=== PATIENT | female | born 1995 | race Caucasian/White ===

== ENCOUNTER 2017-08-31 20:21 | Emergency (ER) | payer OTHER ==
[2017-08-31] MEDS ORDERED: NA CHLORIDE 0.9% 1,000 ML ONE (21:12)
--- NOTE | 2017-08-31 21:29 | RAD REPORT ---
EXAM DESCRIPTION: US - Transvaginal OB - 08/31/2017 9:21 pm CLINICAL HISTORY: lower abd pain COMPARISON: None FINDINGS: A normal-shaped single gestational sac is seen within the uterus. Within the sac is a sing le pole with crown-rump length measuring 3 mm corresponding to 6 weeks 0 days gestational age. VICTORIA 04/25/2018 Cardiac activity is normal measuring 99 BPM. Both ovaries are normal in size, shape and echotexture with normal Doppler blood flow. Maternal adnexa showed no worrisome finding. IMPRESSION: Single live early intrauterine gestation as detailed above.
[2017-08-31 22:14] LABS: Urine Mucus 2+ /HPF (NONE SEEN)
[2017-08-31 22:15] LABS: Urine Bacteria <20 /HPF (<20); Urine Culture Reflex Order NOT NEEDED; Urine RBC <5 /HPF (NONE SEEN)
[2017-08-31 22:18] LABS: Urine Blood NEGATIVE (NEG); Urine Glucose NEGATIVE (NEG); Urine Protein NEGATIVE (NEG); Urine pH 6.5 (5.0-7.0)
--- NOTE | 2017-08-31 22:53 | ER ---
Nurse's Notes [facility] Name: Mile Wang Age: 22 yrs Sex: Female : 1995 Arrival Date: 08/31/2017 Time: 20:28 Bed 23 Private MD: Eddie Rosas T Diagnosis: Dehydration;Intrauterine Presentation: 08/31 20:40 Presenting complaint: Patient states: 7 weeks . pt c/o nausea, decreased ak1 appetite X3 days. pt c/o lower back pain X3 days. pt c/o "racing heart" X3 days. Transition of care: patient was not received from another setting of care. Onset of symptoms is unknown. Risk Assessment: Do you want to hurt yourself or someone else? Patient reports no desire to harm self or others. Initial Sepsis Screen: Does the patient meet any 2 criteria? No. Patient's initial sepsis screen is negative. Does the patient have a suspected source of infection? No. Patient's initial sepsis screen is negative. Care prior to arrival: None. 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 - Social history:: Smoking status: Patient/guardian denies using tobacco. - Ebola Screening: : No symptoms or risks identified at this time. - Family history:: not pertinent. - Hospitalizations: : No recent hospitalization is reported. Screenin:52 Abuse screen: Denies threats or abuse. Denies injuries from another. Nutritional aj screening: No deficits noted. Tuberculosis screening: No symptoms or risk factors identified. Fall Risk None identified. Assessment: 21:52 General: Appears in no apparent distress. comfortable, Behavior is calm, cooperative, aj appropriate for age. Pain: Denies pain. Neuro: Level of Consciousness is awake, alert, obeys commands, Oriented to person, place, time, situation, Appropriate for age. Respiratory: Airway is patent Respiratory effort is even, unlabored, Respiratory pattern is regular, symmetrical. GI: Reports nausea. Derm: Skin is intact, is healthy with good turgor, Skin is pink, warm \\T\\ dry. normal. 22:01 Reassessment: Patient appears in no apparent distress at this time. No changes from ed1 previously documented assessment. Patient and/or family updated on plan of care and expected duration. Pain level reassessed. Patient is alert, oriented x 3, equal unlabored respirations, skin warm/dry/pink. Vital Signs: 20:42 BP 122 / 74; Pulse 86; Resp 18; Temp 98.7(O); Pulse Ox 97% on R/A; Weight 74.84 kg (R); ak1 Height 5 ft. 4 in. (162.56 cm) (R); Pain 6/10; 22:01 BP 113 / 76; Pulse 83; Resp 16; Pulse Ox 100% on R/A; Pain 6/10; ed1 20:42 Body Mass Index 28.32 (74.84 kg, 162.56 cm) ak1 ED Course: 20:28 Patient arrived in ED. al2 20:29 Eddie Rosas MD is Private Physician. al2 20:41 Triage completed. ak1 20:42 Arm band placed on Patient placed in an exam room, on a stretcher, Patient notified of ak1 wait time. 20:48 Mesfin Brenner MD is Attending Physician. rn 21:08 Candy Polanco, RN is Primary Nurse. aj 21:21 Transvaginal Ob In Process Unspecified. EDMS 21:51 Inserted saline lock: 20 gauge in right antecubital area, using aseptic technique. aj Blood collected. 21:52 Patient has correct armband on for positive identification. aj 21:52 No provider procedures requiring assistance completed. aj 21:53 Primary Nurse role handed off by Candy Polanco, RN ed1 21:53 Sophie Miller LVN is Primary Nurse. ed1 22:58 IV discontinued, intact, bleeding controlled, No redness/swelling at site. Pressure ed1 dressing applied. Administered Medications: 21:30 Drug: NS 0.9% 1000 ml Route: IV; Rate: 1000 ml; Site: right antecubital; aj 22:59 Follow up: IV Status: Completed infusion; IV Intake: 1000ml ed1 Intake: 22:59 IV: 1000ml; Total: 1000ml. ed1 Outcome: 22:52 Discharge ordered by . rn 22:58 Discharged to home ambulatory. ed1 22:58 Condition: good 22:58 Discharge instructions given to patient, Instructed on discharge instructions, follow up and referral plans. Demonstrated understanding of instructions, follow-up care. 22:59 Patient left the ED. ed1 Signatures: Dispatcher [employer] EDMS Candy Polanco RN RN Mesfin Fraire MD MD rn Riggs, Erika, LISA MEDICAL RECORDS COORDINATOR ed1 Radha Cosby RN RN ak1 Salena Hodge2
--- NOTE | 2017-08-31 22:53 | EDPHYS ---
Physician Documentation [facility] Name: Mile Wang Age: 22 yrs Sex: Female : 1995 Arrival Date: 08/31/2017 Time: 20:28 Bed 23 Private MD: Eddie Rosas T ED Physician Mesfin Brenner HPI: 08/31 20:58 This 22 yrs old Female presents to ER via Ambulatory with complaints of 7weks rn preg, not eating, no sleep. 20:58 The patient presents to the emergency department with abdominal pain, of the suprapubic rn area, that started 3 day(s) ago, nausea and vomiting. The estimated gestational age is 7 weeks. course: care: private OB physician, Ultrasound: the patient has not had an ultrasound. Associated signs and symptoms: Pertinent positives: abdominal pain, nausea, vomiting, Pertinent negatives: vaginal bleeding, vaginal discharge. The patient has not experienced similar symptoms in the past. The patient has not recently seen a physician. Reports confirmed , + intermittent abd pain when eating and randomly, worse over last 3 days, no u/s, no vaginal discharge/bleeding, no trauma, no fever, reports nausea worse with this compared to last, throwing up frequently, feels heart racing. No current abd pain.. 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 - Social history:: Smoking status: Patient/guardian denies using tobacco. - Ebola Screening: : No symptoms or risks identified at this time. - Family history:: not pertinent. - Hospitalizations: : No recent hospitalization is reported. ROS: 20:58 Constitutional: Negative for fever, chills, and weight loss, Eyes: Negative for injury, rn pain, redness, and discharge, Neck: Negative for injury, pain, and swelling, Cardiovascular: Negative for chest pain, and edema, Respiratory: Negative for shortness of breath, cough, wheezing, and pleuritic chest pain, Abdomen/GI: Negative for diarrhea, and constipation, MS/Extremity: Negative for injury and deformity, Skin: Negative for injury, rash, and discoloration, Neuro: Negative for headache, numbness, tingling, and seizure. Exam: 21:38 Constitutional: This is a well developed, well nourished patient who is awake, alert, rn and in no acute distress. Head/Face: Normocephalic, atraumatic. Cardiovascular: Regular rate and rhythm with a normal S1 and S2. No gallops, murmurs, or rubs. Normal PMI, no JVD. No pulse deficits. Respiratory: Lungs have equal breath sounds bilaterally, clear to auscultation and percussion. No rales, rhonchi or wheezes noted. No increased work of breathing, no retractions or nasal flaring. Abdomen/GI: Soft, non-tender, with normal bowel sounds. No distension or tympany. No guarding or rebound. No evidence of tenderness throughout. Skin: Warm, dry, no evidence of cellulitis. MS/ Extremity: Pulses equal, no cyanosis. Neurovascular intact. Full, normal range of motion. Equal circumference. Neuro: Awake and alert, GCS 15, oriented to person, place, time, and situation. Cranial nerves II-XII grossly intact. Motor strength 5/5 in all extremities. Sensory grossly intact. Vital Signs: 20:42 BP 122 / 74; Pulse 86; Resp 18; Temp 98.7(O); Pulse Ox 97% on R/A; Weight 74.84 kg (R); ak1 Height 5 ft. 4 in. (162.56 cm) (R); Pain 6/10; 22:01 BP 113 / 76; Pulse 83; Resp 16; Pulse Ox 100% on R/A; Pain 6/10; ed1 20:42 Body Mass Index 28.32 (74.84 kg, 162.56 cm) ak1 MDM: 20:48 Patient medically screened. rn 22:50 Differential diagnosis: ectopic , dehydration, UTI. Data reviewed: vital rn signs, nurses notes, lab test result(s), radiologic studies, ultrasound, and as a result, I will discharge patient. Counseling: I had a detailed discussion with the patient and/or guardian regarding: the historical points, exam findings, and any diagnostic results supporting the discharge/admit diagnosis, lab results, radiology results, the need for outpatient follow up, to return to the emergency department if symptoms worsen or persist or if there are any questions or concerns that arise at home. Response to treatment: the patient's symptoms have markedly improved after treatment, and as a result, I will discharge patient. Special discussion: I discussed with the patient/guardian in detail that at this point there is no indication for admission to the hospital. It is understood, however, that if the symptoms persist or worsen the patient needs to return immediately for re-evaluation. Based on the history and exam findings, there is no indication for further emergent testing or inpatient evaluation. I discussed with the patient/guardian the need to see the OB Gyne specialist for further evaluation of the symptoms. ED course: U/S shows IUP approx 6 weeks 0 days with FHTs, UA neg except for ketones, + dehydration, improved with fluids, will dc home and defer nausea medication to her OB, patient self-medicating at home with zofran and phenergan advised against this until talks with her OB.. 08/31 20:56 Order name: Quantitative Hcg 08/31 20:56 Order name: Abo/rh Typing; Complete Time: 22:27 08/31 20:56 Order name: Basic Metabolic Panel 08/31 20:56 Order name: Urine Microscopic Only; Complete Time: 22:27 08/31 21:36 Order name: Urine Dipstick--Ancillary (enter results); Complete Time: 22:27 08/31 21:36 Order name: Urine --Ancillary (enter results); Complete Time: 22:27 08/31 20:56 Order name: IV Saline Lock; Complete Time: 21:30 08/31 20:56 Order name: Labs collected and sent; Complete Time: 21:30 08/31 20:56 Order name: NPO; Complete Time: 21:30 08/31 20:56 Order name: Urine Dipstick-Ancillary (obtain specimen); Complete Time: 21:48 08/31 20:56 Order name: US Transvaginal Ob; Complete Time: 21:36 08/31 22:05 Order name: Labs - recollect needed; Complete Time: 22:17 eb Administered Medications: 21:30 Drug: NS 0.9% 1000 ml Route: IV; Rate: 1000 ml; Site: right antecubital; aj 22:59 Follow up: IV Status: Completed infusion; IV Intake: 1000ml ed1 Disposition: 08/31/17 22:52 Discharged to Home. Impression: Dehydration, Intrauterine . - Condition is Stable. - Discharge Instructions: Abdominal Pain During , Dehydration, Adult, Back Pain in , First Trimester of . - Medication Reconciliation Form, Thank You Letter, Antibiotic Education, Prescription Opioid Use form. - Follow up: Private Physician; When: 2 - 3 days; Reason: Recheck today's complaints, Re-evaluation by your physician. - Problem is new. - Symptoms have improved. Signatures: Dispatcher [employer] EDMS Candy Polanco, RN RN aj Mesfin Brenner MD MD rn Riggs, Erika, LVN [employer] COURT REPORTER ed1 Radha Cosby RN RN ak1 Elsy Simmons Corrections: (The following items were deleted from the chart) 21:38 20:58 Constitutional: Negative for fever, chills, and weight loss, rn lo 22:59 22:52 08/31/2017 22:52 Discharged to Home. Impression: Dehydration; Intrauterine ed1 . Condition is Stable. Forms are Medication Reconciliation Form, Thank You Letter, Antibiotic Education, Prescription Opioid Use. Follow up: Private Physician; When: 2 - 3 days; Reason: Recheck today's complaints, Re-evaluation by your physician. Problem is new. Symptoms have improved. rn
[2017-08-31 23:10] VITALS: TEMP 98.7
[2017-08-31 23:12] VITALS: BP 113/76; O2SAT 100
[2017-08-31 23:24] LABS: BUN Blood Urea Nitrogen 6 mg/dL (7-18); Bicarbonate 26 mmol/L (21-32); Glucose Level 80 mg/dL (74-106); Potassium 3.6 mmol/L (3.5-5.1); Sodium Level 138 mmol/L (136-145)
[2017-08-31 23:25] LABS: HCG, Quantitative 14849 mIU/mL (1-3)
== END 2017-08-31 22:59 | disposition home or self-care (01) ==
LOC: ER 20:21
DX: E86.0 Dehydration (principal); Z33.1 Pregnant state, incidental
CPT/HCPCS: 36415; 76817; 80048; 81003; 81015; 81025; 84702; 86900; 86901; 96360; 99284; J7030

== ENCOUNTER 2017-09-17 15:01 | Emergency (ER) | payer OTHER ==
[2017-09-17 15:53] LABS: Absolute Monocytes 0.5 K/uL (0.1-1.3); Absolute Neutrophil 6.2 K/uL (1.8-8.0); Basophils % 0.2 % (0-1.3); Eosinophils % 0.8 % (0-4.4); Lymphocytes % 22.3 % (15.3-44.8); MCV 87.9 fL (80-100); MPV 8.3 fL (7.6-11.3); RBC Red Blood Cell Count 4.32 M/uL (3.86-4.86)
[2017-09-17 16:03] LABS: BUN Blood Urea Nitrogen 6 mg/dL (7-18); Bicarbonate 25 mmol/L (21-32); Glucose Level 133 mg/dL (74-106); Potassium 3.3 mmol/L (3.5-5.1); Sodium Level 141 mmol/L (136-145)
[2017-09-17] MEDS ORDERED: POTASSIUM CL SA 10 MEQ TAB PO ONE (16:11)
[2017-09-17 16:56] LABS: Urine Blood NEGATIVE (NEG); Urine Glucose NEGATIVE (NEG); Urine Protein NEGATIVE (NEG); Urine Specific Gravity 1.025 (1.005-1.030); Urine pH 7.5 (5.0-7.0)
[2017-09-17 17:00] LABS: Barbiturates NEGATIVE (NEGATIVE); Benzodiazepines NEGATIVE (NEGATIVE); Cocaine NEGATIVE (NEGATIVE); METHAMPHETAM NEGATIVE (NEGATIVE); Methadone NEGATIVE (NEGATIVE); Opiates NEGATIVE (NEGATIVE); Phencyclidine NEGATIVE (NEGATIVE); THC Cannibis POSITIVE (NEGATIVE)
[2017-09-17 18:54] LABS: Urine Bacteria 20-50 /HPF (<20); Urine Culture Reflex Order REFLEXED; Urine Mucus 1+ /HPF (NONE SEEN); Urine RBC <5 /HPF (NONE SEEN)
--- NOTE | 2017-09-17 19:08 | EDPHYS ---
Physician Documentation [facility] Name: Mile Wang Age: 22 yrs Sex: Female : 1995 Arrival Date: 09/17/2017 Time: 15:06 Bed 24 Private MD: ED Physician Ton Bond HPI: 09/17 15:24 This 22 yrs old Female presents to ER via Unassigned with complaints of pm1 Seizure. 16:00 The patient presents after having a single isolated seizure, that lasted 1 minute(s), pm1 the episode(s) was witnessed, by co-worker(s). Character of seizure(s): Motor activity: generalized, Incontinence: none, Apnea: the patient did not experience apnea, Circulation: the patient did not experience evidence of pulse disturbance. Seizure onset: just prior to arrival. Context: the seizure(s) was witnessed, by co-worker(s), occurred at work, occurred while the patient was working, Contributing factors: Has not taken her Keppra for the past two months due to belief that it does not help. Seizure Hx: Last seizure: The patient's last seizure was approximately 2 day(s) ago, Seizure medications: Keppra. Associated injury: The patient did not suffer any apparent associated injury. EMS care: none. Current symptoms: Currently, the patient is not experiencing any symptoms, the patient feels back to baseline. The patient has experienced similar episodes in the past, multiple times. The patient has not recently seen a physician, has an appointment scheduled, with neurologist next week. 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 - Social history:: Smoking status: Patient/guardian denies using tobacco, never smoked. - Ebola Screening: : No symptoms or risks identified at this time. ROS: 16:00 Constitutional: Negative for fever, chills, and weight loss, Eyes: Negative for injury, pm1 pain, redness, and discharge, ENT: Negative for injury, pain, and discharge, Neck: Negative for injury, pain, and swelling, Cardiovascular: Negative for chest pain, palpitations, and edema, Respiratory: Negative for shortness of breath, cough, wheezing, and pleuritic chest pain, Abdomen/GI: Negative for abdominal pain, nausea, vomiting, diarrhea, and constipation, Back: Negative for injury and pain, : Negative for injury, bleeding, discharge, and swelling, MS/Extremity: Negative for injury and deformity, Skin: Negative for injury, rash, and discoloration. 16:00 Neuro: Positive for seizure activity, Negative for weakness. Exam: 16:00 Constitutional: This is a well developed, well nourished patient who is awake, alert, pm1 and in no acute distress. Head/Face: Normocephalic, atraumatic. Eyes: Pupils equal round and reactive to light, extra-ocular motions intact. Lids and lashes normal. Conjunctiva and sclera are non-icteric and not injected. Cornea within normal limits. Periorbital areas with no swelling, redness, or edema. ENT: Nares patent. No nasal discharge, no septal abnormalities noted. Tympanic membranes are normal and external auditory canals are clear. Oropharynx with no redness, swelling, or masses, exudates, or evidence of obstruction, uvula midline. Mucous membranes moist. Neck: Trachea midline, no thyromegaly or masses palpated, and no cervical lymphadenopathy. Supple, full range of motion without nuchal rigidity, or vertebral point tenderness. No Meningismus. Chest/axilla: Normal chest wall appearance and motion. Nontender with no deformity. No lesions are appreciated. 16:00 Cardiovascular: Regular rate and rhythm with a normal S1 and S2. No gallops, murmurs, or rubs. Normal PMI, no JVD. No pulse deficits. Respiratory: Lungs have equal breath sounds bilaterally, clear to auscultation and percussion. No rales, rhonchi or wheezes noted. No increased work of breathing, no retractions or nasal flaring. Abdomen/GI: Soft, non-tender, with normal bowel sounds. No distension or tympany. No guarding or rebound. No evidence of tenderness throughout. Back: No spinal tenderness. No costovertebral tenderness. Full range of motion. Skin: Warm, dry with normal turgor. Normal color with no rashes, no lesions, and no evidence of cellulitis. MS/ Extremity: Pulses equal, no cyanosis. Neurovascular intact. Full, normal range of motion. 16:00 Neuro: Orientation: is normal, Mentation: is normal, Cranial nerves: CN II- XII are normal as tested, Cerebellar function: normal finger to nose testing, Motor: is normal, moves all fours, Sensation: is normal, no obvious gross deficits, seizure activity, is not displayed by the patient. Vital Signs: 15:26 BP 116 / 69; Pulse 89; Resp 18; Pulse Ox 99% on R/A; tl3 17:10 BP 114 / 52; Pulse 68; Resp 18; Pulse Ox 99% on R/A; Pain 0/10; mg2 18:26 BP 108 / 48; Pulse 67; Resp 18; Pulse Ox 100% on R/A; tl3 19:29 BP 110 / 52; Pulse 72; Resp 18; Pulse Ox 100% on R/A; tl3 MDM: 15:12 Patient medically screened. pm1 17:16 Data reviewed: vital signs. Data interpreted: Pulse oximetry: on room air is 99 %. pm1 Interpretation: normal. Counseling: I had a detailed discussion with the patient and/or guardian regarding: the historical points, exam findings, and any diagnostic results supporting the discharge/admit diagnosis. 19:20 ED course: Patient with IUP per U/S on 09/02/2017 in this ER. Patient with pm1 appointment to follow up with neurologist next week. patient stopped keppra and does not want to take it. Will discharge patient to follow up with neurologist as scheduled. Patient without any seizures during ER stay. 09/17 15:23 Order name: Basic Metabolic Panel; Complete Time: 16:05 pm1 09/17 15:23 Order name: CBC with Diff; Complete Time: 16:17 pm1 09/17 15:23 Order name: Urine Microscopic Only; Complete Time: 19:04 pm1 09/17 15:39 Order name: UDS; Complete Time: 17:01 pm09/17 16:51 Order name: Urine Dipstick--Ancillary (enter results); Complete Time: 17:01 ag 09/17 16:51 Order name: Urine --Ancillary (enter results); Complete Time: 17:01 ag 09/17 15:23 Order name: IV Saline Lock; Complete Time: 15:29 pm1 09/17 15:23 Order name: Labs collected and sent; Complete Time: 15:29 pm1 09/17 15:23 Order name: NPO; Complete Time: 15:29 pm1 09/17 15:23 Order name: Urine Dipstick-Ancillary (obtain specimen); Complete Time: 17:12 pm1 09/17 16:51 Order name: Urine Test (obtain specimen); Complete Time: 17:12 ag 09/17 18:56 Order name: Urine Culture EDMS Administered Medications: 16:17 Drug: Potassium Chloride 40 mEq Route: PO; mg2 18:25 Follow up: Response: No adverse reaction tl3 19:18 Drug: Rocephin 1 grams Route: IV; Rate: calculated rate; Site: left antecubital; tl3 Delivery: Primary tubing; 19:18 Follow up: IV Status: Completed infusion; IV Intake: 20ml tl3 Disposition: 09/18 14:15 Co-signature as Attending Physician, Ton Bond MD I agree with the assessment and kdr plan of care. Disposition: 09/17/17 19:07 Discharged to Home. Impression: Epilepsy and recurrent seizures, Urinary tract infection, site not specified, Cannabis abuse. - Condition is Stable. - Discharge Instructions: Marijuana Abuse-Brief, Seizure, Adult, and Urinary Tract Infection. - Prescriptions for Macrobid 100 mg Oral Capsule - take 1 capsule by ORAL route every 12 hours for 10 days; 20 capsule. - Medication Reconciliation Form, Thank You Letter, Antibiotic Education form. - Follow up: Emergency Department; When: As needed; Reason: Worsening of condition. Follow up: Private Physician; When: 2 - 3 days; Reason: Recheck today's complaints, Continuance of care, Re-evaluation by your physician. - Problem is new. - Symptoms have improved. Signatures: Dispatcher [employer] EDMS Ton Bond MD MD kdr Gallardo, Ana ag Marinas, Patrick, NP INSTRUMENT MAKER pm1 Yoly Bojorquez RN RN tl3 Mesfin Paiz RN RN mg2 Corrections: (The following items were deleted from the chart) 09/17 19:31 19:07 09/17/2017 19:07 Discharged to Home. Impression: Epilepsy and recurrent mg2 seizuresUrinary tract infection, site not specified; Cannabis abuse. Condition is Stable. Forms are Medication Reconciliation Form, Thank You Letter, Antibiotic Education, Prescription Opioid Use. Follow up: Emergency Department; When: As needed; Reason: Worsening of condition. Follow up: Private Physician; When: 2 - 3 days; Reason: Recheck today's complaints, Continuance of care, Re-evaluation by your physician. Problem is new. Symptoms have improved. pm1
--- NOTE | 2017-09-17 19:08 | ER ---
Nurse's Notes [facility] Name: Mile Wang Age: 22 yrs Sex: Female : 1995 Arrival Date: 09/17/2017 Time: 15:06 Bed 24 Private MD: Diagnosis: Urinary tract infection, site not specified;Epilepsy and recurrent seizures;Cannabis abuse Presentation: 09/17 15:05 Presenting complaint: EMS states: ems reports that pt had a seizure that lasted about tl3 one minute at work, followed by a postictal phase of 5 minutes, pt has a history of seizures, has stopped taking her Keppra about two months ago, is about 10 weeks . 15:05 Transition of care: patient was not received from another setting of care. Onset of tl3 symptoms was September 17, 2017 at 15:25. Risk Assessment: Do you want to hurt yourself or someone else? Patient reports no desire to harm self or others. Initial Sepsis Screen: Does the patient meet any 2 criteria? No. Patient's initial sepsis screen is negative. Does the patient have a suspected source of infection? No. Patient's initial sepsis screen is negative. Care prior to arrival: IV initiated. 20 GA, in the left antecubital area. 15:05 Method Of Arrival: EMS: [facility] tl3 15:05 Acuity: BAIRON 3 tl3 Triage Assessment: 15:26 General: Appears in no apparent distress. comfortable, well groomed, well developed, tl3 well nourished, Behavior is calm, cooperative, appropriate for age. Pain: Denies pain. EENT: No deficits noted. No signs and/or symptoms were reported regarding the EENT system. Neuro: Level of Consciousness is awake, alert, obeys commands, Oriented to person, place, time, situation, Appropriate for age. Cardiovascular: Heart tones S1 S2 present Patient's skin is warm and dry. Respiratory: Airway is patent Respiratory effort is even, unlabored, Respiratory pattern is regular, symmetrical, Breath sounds are clear bilaterally. GI: No signs and/or symptoms were reported involving the gastrointestinal system. Abdomen is round non-distended. : No signs and/or symptoms were reported regarding the genitourinary system. Derm: No signs and/or symptoms reported regarding the dermatologic system. Musculoskeletal: No signs and/or symptoms reported regarding the musculoskeletal system. 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 - Social history:: Smoking status: Patient/guardian denies using tobacco, never smoked. - Ebola Screening: : No symptoms or risks identified at this time. Screenin:07 Abuse screen: Denies threats or abuse. Denies injuries from another. Nutritional mg2 screening: No deficits noted. Tuberculosis screening: No symptoms or risk factors identified. Fall Risk Secondary diagnosis (15 points) seizures, IV access (20 points). Assessment: 15:26 Reassessment: No changes from previously documented assessment. Patient is alert, tl3 oriented x 3, equal unlabored respirations, skin warm/dry/pink. 17:00 Reassessment: Patient appears in no apparent distress at this time. No changes from tl3 previously documented assessment. Patient and/or family updated on plan of care and expected duration. Pain level reassessed. Patient is alert, oriented x 3, equal unlabored respirations, skin warm/dry/pink. 18:26 Reassessment: Patient appears in no apparent distress at this time. No changes from tl3 previously documented assessment. Patient and/or family updated on plan of care and expected duration. Pain level reassessed. Patient is alert, oriented x 3, equal unlabored respirations, skin warm/dry/pink. pt awaiting discharge, in no distress. 19:29 Reassessment: Patient appears in no apparent distress at this time. No changes from tl3 previously documented assessment. Patient and/or family updated on plan of care and expected duration. Pain level reassessed. Patient is alert, oriented x 3, equal unlabored respirations, skin warm/dry/pink. Vital Signs: 15:26 BP 116 / 69; Pulse 89; Resp 18; Pulse Ox 99% on R/A; tl3 17:10 BP 114 / 52; Pulse 68; Resp 18; Pulse Ox 99% on R/A; Pain 0/10; mg2 18:26 BP 108 / 48; Pulse 67; Resp 18; Pulse Ox 100% on R/A; tl3 19:29 BP 110 / 52; Pulse 72; Resp 18; Pulse Ox 100% on R/A; tl3 ED Course: 15:06 Patient arrived in ED. mg2 15:07 Maintain EMS IV. Dressing intact. Good blood return noted. Site clean \T\ dry. Gauge \T\ mg 2 site: 20 \T\ left AC. 15:07 Patient has correct armband on for positive identification. Placed in gown. Bed in low mg2 position. Side rails up X2. Door closed. Warm blanket given. 15:12 Ted Gu NP is PHCP. pm1 15:12 Ton Bond MD is Attending Physician. pm1 15:23 Yoly Bojorquez, JUAN M is Primary Nurse. tl3 15:26 Triage completed. tl3 15:26 No provider procedures requiring assistance completed. tl3 15:26 Arm band placed on right wrist. tl3 16:15 Urine collected: clean catch specimen, clear, reinaldo colored. jp3 19:29 IV discontinued, intact, bleeding controlled, No redness/swelling at site. Pressure tl3 dressing applied. 19:30 IV discontinued, intact, bleeding controlled, No redness/swelling at site. Pressure mg2 dressing applied. Administered Medications: 16:17 Drug: Potassium Chloride 40 mEq Route: PO; mg2 18:25 Follow up: Response: No adverse reaction tl3 19:18 Drug: Rocephin 1 grams Route: IV; Rate: calculated rate; Site: left antecubital; tl3 Delivery: Primary tubing; 19:18 Follow up: IV Status: Completed infusion; IV Intake: 20ml tl3 Intake: 19:18 IV: 20ml; Total: 20ml. tl3 Outcome: 19:07 Discharge ordered by . pm1 19:30 Discharged to home ambulatory, with friend. mg2 19:30 Condition: good 19:30 Discharge instructions given to patient, friend, Instructed on discharge instructions, follow up and referral plans. medication usage, Demonstrated understanding of instructions, follow-up care, medications, Prescriptions given X 1. 19:31 Patient left the ED. mg2 Signatures: Ted Gu NP [employer] pm1 Yoly Bojorquez, JUAN M RN tl3 Mesfin Paiz RN RN mg2 Maco Buitrago jp3 Corrections: (The following items were deleted from the chart) 17:12 17:10 Resp 18bpm; Pulse Ox 99% RA; Pain 0/10; mg2 mg2
[2017-09-17] MEDS ORDERED: CEFTRIAXONE/SWI 1gm 1 GM/10 ML SYR ONE (19:14)
[2017-09-17 19:37] VITALS: O2SAT 100
[2017-09-17 19:38] VITALS: BP 110/52
== END 2017-09-17 19:31 | disposition home or self-care (01) ==
LOC: ER 15:01
DX: O99.351 Diseases of the nervous system complicating pregnancy, first trimester (principal); G40.909 Epilepsy, unspecified, not intractable, without status epilepticus; Z3A.10 10 weeks gestation of pregnancy; O23.41 Unspecified infection of urinary tract in pregnancy, first trimester; F12.10 Cannabis abuse, uncomplicated
CPT/HCPCS: 36415; 80048; 80307; 81003; 81015; 81025; 85025; 87086; 87088; 96374; 99284; J0696

== ENCOUNTER 2017-10-23 18:45 | Emergency (ER) | payer OTHER ==
[2017-10-23 19:52] LABS: Urine Blood NEGATIVE (NEG); Urine Glucose NEGATIVE (NEG); Urine Protein NEGATIVE (NEG); Urine Specific Gravity >1.030 (1.005-1.030)
[2017-10-23] MEDS ORDERED: ONDANSETRON 4 MG (ODT) TAB ONE (20:27)
[2017-10-23] MEDS ORDERED: FAMOTIDINE 20 MG TAB ONE (20:27)
[2017-10-23] MEDS ORDERED: DIPHENHYDRAMINE 25 MG TAB/CAP ONE (20:27)
--- NOTE | 2017-10-23 20:59 | EDPHYS ---
Physician Documentation [facility] Name: Mile Wang Age: 22 yrs Sex: Female : 1995 Arrival Date: 10/23/2017 Time: 18:48 Bed 24 Private MD: Eddie Rosas T ED Physician Zen Villanueva HPI: 10/23 20:20 This 22 yrs old Female presents to ER via Ambulatory with complaints of 14 cp wks , Rash, Vomiting, Headache. 20:20 The patient's rash thought to be caused by Contact allergy. The rash is located on the anterior aspect of left upper chest and anterior aspect of right upper chest and face. The rash can be described as erythematous. Onset: The symptoms/episode began/occurred today. Associated signs and symptoms: Pertinent positives: burning sensation, , Pertinent negatives: difficulty breathing, fever, itching, swelling of lips, swelling of throat, swelling of tongue. 20:20 Treatment given at home: OTC lotion/cream. Patient reports having EEG done yesterday in which electrodes and white gel were applied to face and upper chest. Patient concerned after noticing rash today. Historical: - Allergies: 18:52 No Known Allergies; la1 - PMHx: 18:52 Anxiety; Bipolar disorder; Psychogenic Seizures; la1 - Immunization history:: Adult Immunizations up to date. - Social history:: Smoking status: unknown. - Ebola Screening: : No symptoms or risks identified at this time. ROS: 20:25 Constitutional: Negative for body aches, chills, fever, poor PO intake. cp 20:25 Eyes: Negative for injury, pain, redness, and discharge. cp 20:25 ENT: Negative for drainage from ear(s), ear pain, sore throat, difficulty swallowing, difficulty handling secretions. 20:25 Cardiovascular: Negative for chest pain, edema. 20:25 Respiratory: Negative for cough, shortness of breath, wheezing. 20:25 Abdomen/GI: Positive for nausea, Negative for vomiting, diarrhea, constipation. 20:25 : Negative for urinary symptoms. 20:25 Skin: Positive for rash, of the face and upper chest. 20:25 Neuro: Positive for headache. 20:25 All other systems are negative. Exam: 20:30 Constitutional: The patient appears in no acute distress, alert, awake, non-toxic, well cp developed, well nourished. 20:30 Head/face: Noted is rash, of the forehead, right cheek, left cheek, right orthodoxy and cp left orthodoxy. 20:30 Eyes: Periorbital structures: appear normal, Pupils: equal, round, and reactive to light and accomodation, Extraocular movements: intact throughout, Conjunctiva: normal, no exudate, no injection, Sclera: no appreciated abnormality, Lids and lashes: appear normal, bilaterally. 20:30 ENT: External ear(s): are unremarkable, Ear canal(s): are normal, clear, TM's: bulging, is not appreciated, bilaterally, erythema, is not appreciated, bilaterally, Nose: is normal, Mouth: Lips: moist, Oral mucosa: pink and intact, moist, Posterior pharynx: is normal, airway is patent, no erythema, no exudate, Voice: is normal. 20:30 Neck: ROM/movement: is normal, is supple, without pain, no range of motions limitations, no nuchal rigidity, Lymph nodes: no appreciated lymphadenopathy. 20:30 Chest/axilla: Inspection: rash, of the anterior aspect of right upper chest and anterior aspect of left upper chest Palpation: is normal, no crepitus, no tenderness. 20:30 Cardiovascular: Rate: normal, Rhythm: regular. 20:30 Respiratory: the patient does not display signs of respiratory distress, Respirations: normal, no use of accessory muscles, no retractions, no splinting, no tachypnea, labored breathing, is not present, Breath sounds: are clear throughout, no decreased breath sounds, no stridor, no wheezing. 20:30 Abdomen/GI: Inspection: abdomen appears normal, Palpation: abdomen is soft and non-tender, in all quadrants. 20:30 Back: CVA tenderness, is absent. 20:30 Neuro: Orientation: to person, place \T\ time. Mentation: lucid, able to follow commands, Cerebellar function: is grossly normal, Motor: is normal. Vital Signs: 18:52 BP 113 / 66; Pulse 105; Resp 19; Temp 98.5; Pulse Ox 100% on R/A; Weight 74.84 kg; la1 Height 5 ft. 4 in. (162.56 cm); 19:02 BP 119 / 67; Pulse 97; Resp 15; Pulse Ox 100% on R/A; aj 20:02 BP 115 / 70; Pulse 70; Resp 16; Pulse Ox 100% on R/A; aj 21:04 BP 116 / 71; Pulse 81; Resp 16; Pulse Ox 99% on R/A; aj 18:52 Body Mass Index 28.32 (74.84 kg, 162.56 cm) la1 MDM: 20:02 Patient medically screened. cp 20:30 Differential diagnosis: varicella, allergic reaction, contact dermatitis, anaphylaxis, cp cellulitis. 20:56 ED course: VSS. Patient reports symptoms improved after meds. cp 20:57 Data reviewed: vital signs, nurses notes, lab test result(s), and as a result, I will cp discharge patient. 20:57 Counseling: I had a detailed discussion with the patient and/or guardian regarding: the cp historical points, exam findings, and any diagnostic results supporting the discharge/admit diagnosis, lab results, to return to the emergency department if symptoms worsen or persist or if there are any questions or concerns that arise at home. Response to treatment: the patient's symptoms have markedly improved after treatment, and as a result, I will discharge patient. 10/23 19:12 Order name: Urine Dipstick--Ancillary (enter results); Complete Time: 20:00 [facility] 10/23 19:12 Order name: Urine --Ancillary (enter results); Complete Time: 20:00 [facility] 10/23 20:13 Order name: Urine Microscopic Only cp 10/23 20:13 Order name: PO challenge; Complete Time: 20:27 cp Administered Medications: 20:27 Drug: Zofran 4 mg Route: PO; aj 21:06 Follow up: Response: No adverse reaction; Nausea is decreased aj 20:27 Drug: Benadryl 50 mg Route: PO; aj 21:07 Follow up: Response: No adverse reaction aj 20:27 Drug: Pepcid 20 mg Route: PO; aj 21:06 Follow up: Response: No adverse reaction aj 21:06 Follow up: Response: No adverse reaction Disposition: 21:30 Chart complete. cp Disposition: 10/23/17 20:58 Discharged to Home. Impression: Allergic contact dermatitis - Face and upper chest. - Condition is Stable. - Discharge Instructions: Contact Dermatitis. - Medication Reconciliation Form, Thank You Letter, Antibiotic Education, Prescription Opioid Use form. - Follow up: Private Physician; When: 2 - 3 days; Reason: Recheck today's complaints. - Problem is new. - Symptoms have improved. Addendum: 10/26/2017 08:54 Co-signature as Attending Physician, Zen Villanueva MD I agree with the assessment and c poole plan of care. Signatures: Dispatcher [employer] EDCandy Ellison RN RN aj Anderson, Corey, MD MD cha Attema, Lee RN RN la1 Zen Pierre PA PA cp Corrections: (The following items were deleted from the chart) 10/23 21:07 20:58 10/23/2017 20:58 Discharged to Home. Impression: Allergic contact dermatitis - aj Face and upper chest. Condition is Stable. Forms are Medication Reconciliation Form, Thank You Letter, Antibiotic Education, Prescription Opioid Use. Follow up: Private Physician; When: 2 - 3 days; Reason: Recheck today's complaints. Problem is new. Symptoms have improved. cp
--- NOTE | 2017-10-23 20:59 | ER ---
Nurse's Notes [facility] Name: Mile Wang Age: 22 yrs Sex: Female : 1995 Arrival Date: 10/23/2017 Time: 18:48 Bed 24 Private MD: Eddie Rosas T Diagnosis: Allergic contact dermatitis-Face and upper chest Presentation: 10/23 18:51 Presenting complaint: Patient states: I am 14 weeks , just got released from [address] for prolonged EEG due to seizures. I was also put on macrobid. I have a rash on my face now, nausea, and a headace. Transition of care: patient was not received from another setting of care. Onset of symptoms was October 23, 2017. Risk Assessment: Do you want to hurt yourself or someone else? Patient reports no desire to harm self or others. Initial Sepsis Screen: Does the patient meet any 2 criteria? No. Patient's initial sepsis screen is negative. Does the patient have a suspected source of infection? No. Patient's initial sepsis screen is negative. Care prior to arrival: None. 18:51 Method Of Arrival: Ambulatory [facility] 18:51 Acuity: BAIRON 3 la Historical: - Allergies: 18:52 No Known Allergies; la1 - PMHx: 18:52 Anxiety; Bipolar disorder; Psychogenic Seizures; la1 - Immunization history:: Adult Immunizations up to date. - Social history:: Smoking status: unknown. - Ebola Screening: : No symptoms or risks identified at this time. Screenin:02 Abuse screen: Denies threats or abuse. Denies injuries from another. Nutritional aj screening: No deficits noted. Tuberculosis screening: No symptoms or risk factors identified. Fall Risk None identified. Assessment: 19:02 General: Appears in no apparent distress. comfortable, Behavior is calm, cooperative, aj appropriate for age. Pain: Complains of pain in face. Neuro: Level of Consciousness is awake, alert, obeys commands, Oriented to person, place, time, situation, Appropriate for age. Respiratory: Airway is patent Respiratory effort is even, unlabored, Respiratory pattern is regular, symmetrical. GI: Abdomen is non-distended, obese, Reports nausea, vomiting. Derm: Rash noted that is red, on face, anterior aspect of right upper chest and anterior aspect of left upper chest. 21:04 Reassessment: Patient appears in no apparent distress at this time. No changes from aj previously documented assessment. Patient and/or family updated on plan of care and expected duration. Pain level reassessed. Patient is alert, oriented x 3, equal unlabored respirations, skin warm/dry/pink. Patient denies pain at this time. Vital Signs: 18:52 BP 113 / 66; Pulse 105; Resp 19; Temp 98.5; Pulse Ox 100% on R/A; Weight 74.84 kg; la1 Height 5 ft. 4 in. (162.56 cm); 19:02 BP 119 / 67; Pulse 97; Resp 15; Pulse Ox 100% on R/A; aj 20:02 BP 115 / 70; Pulse 70; Resp 16; Pulse Ox 100% on R/A; aj 21:04 BP 116 / 71; Pulse 81; Resp 16; Pulse Ox 99% on R/A; aj 18:52 Body Mass Index 28.32 (74.84 kg, 162.56 cm) la1 ED Course: 18:48 Patient arrived in ED. mr 18:48 Eddie Rosas MD is Private Physician. mr 18:52 Triage completed. la1 18:53 Arm band placed on left wrist. la1 19:01 Candy Polanco, JUAN M is Primary Nurse. aj 19:02 Patient has correct armband on for positive identification. Bed in low position. Call aj light in reach. Side rails up X 1. Adult w/ patient. Pulse ox on. NIBP on. 20:02 Zen Pierre PA is PHCP. cp 20:02 Zen Villanuvea MD is Attending Physician. cp 21:04 No provider procedures requiring assistance completed. Patient did not have IV access aj during this emergency room visit. Administered Medications: 20:27 Drug: Zofran 4 mg Route: PO; aj 21:06 Follow up: Response: No adverse reaction; Nausea is decreased aj 20: Drug: Benadryl 50 mg Route: PO; aj 21:07 Follow up: Response: No adverse reaction aj 20: Drug: Pepcid 20 mg Route: PO; aj 21:06 Follow up: Response: No adverse reaction aj 21:06 Follow up: Response: No adverse reaction aj Outcome: 20:58 Discharge ordered by . cp 21:04 Discharged to home ambulatory. aj 21: Condition: good 21:04 Discharge instructions given to patient, Instructed on discharge instructions, follow up and referral plans. Demonstrated understanding of instructions, follow-up care. 21:07 Patient left the ED. tracee Signatures: Candy Polanco RN Liliana Skinner Lee RN RN la1 Zen Pierre PA PA cp
[2017-10-23 21:04] LABS: Calcium Oxalate Crystals- Ur MODERATE (NONE SEEN); Urine Bacteria <20 /HPF (<20); Urine Culture Reflex Order NOT NEEDED; Urine Mucus 1+ /HPF (NONE SEEN); Urine RBC <5 /HPF (NONE SEEN)
[2017-10-23 22:19] VITALS: TEMP 98.5
[2017-10-23 22:22] VITALS: BP 116/71; O2SAT 99
== END 2017-10-23 21:07 | disposition home or self-care (01) ==
LOC: ER 18:45
DX: L23.9 Allergic contact dermatitis, unspecified cause (principal); Z3A.14 14 weeks gestation of pregnancy
CPT/HCPCS: 81003; 81015; 81025; 99283

== ENCOUNTER 2017-11-10 22:19 | Emergency (ER) | payer OTHER ==
[2017-11-10] MEDS ORDERED: CLINDAMYCIN HCL 150 MG CAP ONE (22:57)
--- NOTE | 2017-11-10 23:13 | ER ---
Nurse's Notes [facility] Name: Mile aWng Age: 22 yrs Sex: Female : 1995 Arrival Date: 11/10/2017 Time: 22:23 Bed 20 Private MD: Diagnosis: Cellulitis of left lower limb;Cutaneous abscess of left lower limb Presentation: 11/10 22:41 Presenting complaint: Patient states: she has a boil on the inside of her left upper bb leg x 3 days which has been draining pus. Transition of care: patient was not received from another setting of care. Onset of symptoms was November 07, 2017. Risk Assessment: Do you want to hurt yourself or someone else? Patient reports no desire to harm self or others. Initial Sepsis Screen: Does the patient meet any 2 criteria? No. Patient's initial sepsis screen is negative. Does the patient have a suspected source of infection? No. Patient's initial sepsis screen is negative. Care prior to arrival: None. 22:41 Method Of Arrival: Ambulatory bb 22:41 Acuity: BAIRON 4 bb 22:44 Note pt is 17 weeks . 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 - Social history:: Smoking status: Patient/guardian denies using tobacco, Patient/guardian denies using alcohol, street drugs. - Ebola Screening: : No symptoms or risks identified at this time. - Family history:: not pertinent. - Hospitalizations: : No recent hospitalization is reported. Screenin:48 Abuse screen: Denies threats or abuse. Denies injuries from another. Nutritional lp1 screening: No deficits noted. Tuberculosis screening: No symptoms or risk factors identified. Fall Risk None identified. Assessment: 22:46 General: Appears in no apparent distress. Behavior is appropriate for age. Pain: lp1 Complains of pain in medial aspect of left thigh Pain currently is 7 out of 10 on a pain scale. Neuro: No deficits noted. Cardiovascular: No deficits noted. Respiratory: No deficits noted. GI: No deficits noted. : No deficits noted. EENT: No deficits noted. Derm: Abscess located on medial aspect of left thigh is dime sized. Musculoskeletal: No deficits noted. Vital Signs: 22:43 BP 110 / 63; Pulse 76; Resp 16 S; Temp 98.4(O); Pulse Ox 100% on R/A; Weight 74.39 kg bb (R); Height 5 ft. 4 in. (162.56 cm) (R); Pain 5/10; 22:43 Body Mass Index 28.15 (74.39 kg, 162.56 cm) bb ED Course: 22:23 Patient arrived in ED. es 22:42 Mesfin Brenner MD is Attending Physician. rn 22:42 Triage completed. bb 22:43 Arm band placed on Patient placed in an exam room, on a stretcher, on pulse oximetry. bb 22:46 Sallie Barkley, RN is Primary Nurse. lp1 22:48 Patient has correct armband on for positive identification. lp1 22:48 No provider procedures requiring assistance completed. Patient did not have IV access lp1 during this emergency room visit. Administered Medications: 22:58 Drug: Clindamycin 300 mg Route: PO; lp1 23:24 Follow up: Response: No adverse reaction lp1 Outcome: 23:12 Discharge ordered by . rn 23:24 Discharged to home ambulatory. lp1 23:24 Condition: good 23:24 Discharge instructions given to patient, Instructed on discharge instructions, follow up and referral plans. medication usage, Demonstrated understanding of instructions, follow-up care, medications, Prescriptions given X 1. 23:24 Patient left the ED. lp1 Signatures: Fannie Borrero Brenda, RN RN bb Mesfin Brenner MD MD rn Pena, Laura, RN RN lp1
--- NOTE | 2017-11-10 23:13 | EDPHYS ---
Physician Documentation [facility] Name: Mile Wang Age: 22 yrs Sex: Female : 1995 Arrival Date: 11/10/2017 Time: 22:23 Bed 20 Private MD: ED Physician Mesfin Brenner HPI: 11/10 23:08 This 22 yrs old Female presents to ER via Ambulatory with complaints of rn swelling. 23:08 the patient presents with a swollen area of the medial aspect of left thigh. rn Description: erythematous, swollen, warm. Onset: The symptoms/episode began/occurred 3 day(s) ago. Possible cause(s): unknown. Severity of symptoms: At their worst the symptoms were moderate, in the emergency department the symptoms have improved. The patient has not experienced similar symptoms in the past. Reports bump to left leg that started small like pimple, got larger, has been using warm compresses, and expressing pus, no fever. . 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 - Social history:: Smoking status: Patient/guardian denies using tobacco, Patient/guardian denies using alcohol, street drugs. - Ebola Screening: : No symptoms or risks identified at this time. - Family history:: not pertinent. - Hospitalizations: : No recent hospitalization is reported. ROS: 23:08 Constitutional: Negative for fever, chills, and weight loss, Skin: Negative for injury rn Exam: 23:08 Constitutional: This is a well developed, well nourished patient who is awake, alert, rn and in no acute distress. Skin: Warm, dry with normal turgor. + blue hue (due to pants/ana she states), left medial thigh with subcentimeter spot of erythema and open pustule, no fluctuance, no crepitus, no necrosis. Vital Signs: 22:43 BP 110 / 63; Pulse 76; Resp 16 S; Temp 98.4(O); Pulse Ox 100% on R/A; Weight 74.39 kg bb (R); Height 5 ft. 4 in. (162.56 cm) (R); Pain 5/10; 22:43 Body Mass Index 28.15 (74.39 kg, 162.56 cm) bb MDM: 22:42 Patient medically screened. rn 23:08 Differential diagnosis: abscess, cellulitis. Differential diagnosis: insect bite. Data rn reviewed: vital signs, nurses notes. Data reviewed: and as a result, I will discharge patient. Counseling: I had a detailed discussion with the patient and/or guardian regarding: the historical points, exam findings, and any diagnostic results supporting the discharge/admit diagnosis, the need for outpatient follow up, to return to the emergency department if symptoms worsen or persist or if there are any questions or concerns that arise at home. Special discussion: I discussed with the patient/guardian in detail that at this point there is no indication for admission to the hospital. It is understood, however, that if the symptoms persist or worsen the patient needs to return immediately for re-evaluation. 23:12 ED course: No drainable abscess on exam, patient has been doing great job expressing rn pus and managing cutaneous abscess, will dc home with abx with return precautions if doesn't improve or worsen. . Administered Medications: 22:58 Drug: Clindamycin 300 mg Route: PO; lp1 23:24 Follow up: Response: No adverse reaction lp1 Disposition: 11/10/17 23:12 Discharged to Home. Impression: Cellulitis of left lower limb, Cutaneous abscess of left lower limb. - Condition is Stable. - Discharge Instructions: Skin Abscess, Cellulitis, Adult. - Prescriptions for Clindamycin HCl 300 mg Oral Capsule - take 1 capsule by ORAL route every 6 hours for 10 days; 40 capsule. - Medication Reconciliation Form, Thank You Letter, Antibiotic Education, Prescription Opioid Use form. - Follow up: Private Physician; When: As needed; Reason: Recheck today's complaints, Re-evaluation by your physician. - Problem is an ongoing problem. - Symptoms have improved. Signatures: Radha Miller RN Mesfin Cosme MD MD rn Pena, Laura, RN RN lp1 Corrections: (The following items were deleted from the chart) 23:24 23:12 11/10/2017 23:12 Discharged to Home. Impression: Cellulitis of left lower limb; lp1 Cutaneous abscess of left lower limb. Condition is Stable. Forms are Medication Reconciliation Form, Thank You Letter, Antibiotic Education, Prescription Opioid Use. Follow up: Private Physician; When: As needed; Reason: Recheck today's complaints, Re-evaluation by your physician. Problem is an ongoing problem. Symptoms have improved. rn
[2017-11-11 00:28] VITALS: BP 110/63; TEMP 98.4; O2SAT 100
== END 2017-11-10 23:24 | disposition home or self-care (01) ==
LOC: ER 22:19
DX: L03.116 Cellulitis of left lower limb (principal); L02.416 Cutaneous abscess of left lower limb; F31.9 Bipolar disorder, unspecified; O99.342 Other mental disorders complicating pregnancy, second trimester; F41.9 Anxiety disorder, unspecified; G40.89 Other seizures; Z3A.16 16 weeks gestation of pregnancy
CPT/HCPCS: 99283

== ENCOUNTER 2017-11-13 18:37 | Emergency (ER) | payer OTHER ==
[2017-11-13 19:32] LABS: BUN Blood Urea Nitrogen 5 mg/dL (7-18); Bicarbonate 22 mmol/L (21-32); Glucose Level 94 mg/dL (74-106); Potassium 3.6 mmol/L (3.5-5.1); Sodium Level 141 mmol/L (136-145)
[2017-11-13 19:39] LABS: Urine Bacteria >50 /HPF (<20); Urine Culture Reflex Order REFLEXED; Urine RBC <5 /HPF (NONE SEEN)
--- NOTE | 2017-11-13 19:43 | ER ---
Nurse's Notes [facility] Name: Mile Wang Age: 22 yrs Sex: Female : 1995 Arrival Date: 11/13/2017 Time: 18:39 Bed 23 Private MD: Diagnosis: Epilepsy and recurrent seizures;Urinary tract infection, site not specified Presentation: 11/13 18:40 Presenting complaint: EMS states: Unwitnessed grand mal sz, lasted approx 5 minutes, pt la1 with hx of sz, is 17 weeks . Transition of care: patient was not received from another setting of care. Onset of symptoms was November 13, 2017. Risk Assessment: Do you want to hurt yourself or someone else? Patient reports no desire to harm self or others. Initial Sepsis Screen: Does the patient meet any 2 criteria? No. Patient's initial sepsis screen is negative. Does the patient have a suspected source of infection? No. Patient's initial sepsis screen is negative. Care prior to arrival: None. 18:40 Method Of Arrival: EMS la1 18:40 Acuity: BAIRON 3 la1 Triage Assessment: 18:43 General: Appears in no apparent distress. Behavior is calm, cooperative. la1 Historical: - Allergies: 18:42 No Known Allergies; la1 - Home Meds: 18:42 Keppra 1,000 mg Oral tab 1 tab every 12 hours [Active]; Folic Acid Oral [Active]; la1 vitamins [Active]; - PMHx: 18:42 Anxiety; Bipolar disorder; Psychogenic Seizures; la1 - Immunization history:: Adult Immunizations up to date. - Social history:: Smoking status: unknown. - Ebola Screening: : No symptoms or risks identified at this time. Screenin:42 Abuse screen: Denies threats or abuse. Nutritional screening: No deficits noted. la1 Tuberculosis screening: No symptoms or risk factors identified. Fall Risk None identified. Assessment: 18:42 General: Appears in no apparent distress. Behavior is calm, cooperative. Pain: Denies la1 pain. Neuro: Level of Consciousness is awake, alert, obeys commands, Oriented to person, place, time, situation. Cardiovascular: Heart tones S1 S2 present Capillary refill < 3 seconds Patient's skin is warm and dry. Respiratory: Airway is patent Respiratory effort is even, unlabored, Respiratory pattern is regular, symmetrical. GI: No signs and/or symptoms were reported involving the gastrointestinal system. : No signs and/or symptoms were reported regarding the genitourinary system. Vital Signs: 18:41 BP 120 / 66; Pulse 94; Resp 16; Temp 99.4(O); Pulse Ox 100% on R/A; Weight 75.3 kg; la1 Height 5 ft. 4 in. (162.56 cm) (R); 19:50 BP 111 / 74; Pulse 71; Resp 16; Temp 98.5; Pulse Ox 100% on R/A; la1 18:41 Body Mass Index 28.49 (75.30 kg, 162.56 cm) la1 Vitals: 18:49 Heart Tones 160 bpm. mg2 [place] Coma Score: 18:43 Eye Response: spontaneous(4). Verbal Response: oriented(5). Motor Response: obeys la1 commands(6). Total: 15. ED Course: 18:39 Patient arrived in ED. la1 18:40 Triage completed. la1 18:41 Arm band placed on left wrist. la1 18:43 Bed in low position. Call light in reach. Seizure precautions initiated. la1 18:48 Inserted saline lock: 20 gauge in left hand, using aseptic technique. Blood collected. mg2 19:04 Shana Espinosa FNP-C is [facility]. kb 19:04 Ton Bond MD is Attending Physician. kb 19:29 FHTs-160bpm. la1 19:49 Mich Krueger RN is Primary Nurse. la1 19:49 No provider procedures requiring assistance completed. IV discontinued, intact, la1 bleeding controlled, No redness/swelling at site. Pressure dressing applied. Administered Medications: 19:49 Drug: Macrobid 100 mg Route: PO; la1 19:49 Follow up: Response: No adverse reaction la1 Outcome: 19:42 Discharge ordered by . kb 19:49 Discharged to home ambulatory. la1 19:49 Condition: stable 19:49 Discharge instructions given to patient, Instructed on discharge instructions, follow up and referral plans. medication usage, Demonstrated understanding of instructions, follow-up care, medications, Prescriptions given X 1. 19:50 Patient left the ED. la1 Signatures: Shana Espinosa FNP-C GAS OPERATIONS ANALYST-Mich Deras RN RN la1 Gardose, Mesfin, RN RN mg2
--- NOTE | 2017-11-13 19:43 | EDPHYS ---
Physician Documentation [facility] Name: Mile Wang Age: 22 yrs Sex: Female : 1995 Arrival Date: 11/13/2017 Time: 18:39 Bed 23 Private MD: ED Physician Ton Bond HPI: 11/13 19:36 This 22 yrs old Female presents to ER via EMS with complaints of Probable kb Seizure. 19:36 The patient presents after having a single isolated seizure. Character of seizure(s): kb Motor activity: generalized, shaking all over, Incontinence: none. Seizure onset: just prior to arrival. Context: occurred at work, occurred while the patient was working, Contributing factors: unknown. Seizure Hx: Original onset: longstanding, Seizure medications: Keppra. Associated injury: The patient did not suffer any apparent associated injury. Current symptoms: Currently, the patient is not experiencing any symptoms, the patient feels back to baseline, no decreased level of consciousness, no confusion, no dysphasia, no headache, no paralysis, no visual changes. The patient has experienced similar episodes in the past, multiple times. The patient has not recently seen a physician. Pt felt like she was going to have a seizure so she called her sister and told her what was happening and that she would be on the ground. Pt laid on the ground before seizure began. Did not fall, has no injuries. . Historical: - Allergies: 18:42 No Known Allergies; la1 - Home Meds: 18:42 Keppra 1,000 mg Oral tab 1 tab every 12 hours [Active]; Folic Acid Oral [Active]; la1 vitamins [Active]; - PMHx: 18:42 Anxiety; Bipolar disorder; Psychogenic Seizures; la1 - Immunization history:: Adult Immunizations up to date. - Social history:: Smoking status: unknown. - Ebola Screening: : No symptoms or risks identified at this time. ROS: 19:35 Constitutional: Negative for fever, chills, and weight loss, Cardiovascular: Negative kb for chest pain, palpitations, and edema, Respiratory: Negative for shortness of breath, cough, wheezing, and pleuritic chest pain, Abdomen/GI: Negative for abdominal pain, nausea, vomiting, diarrhea, and constipation, Back: Negative for injury and pain, : Negative for injury, bleeding, discharge, and swelling, MS/Extremity: Negative for injury and deformity, Skin: Negative for injury, rash, and discoloration. 19:35 Neuro: Positive for seizure activity. Exam: 19:36 Constitutional: This is a well developed, well nourished patient who is awake, alert, kb and in no acute distress. Head/Face: Normocephalic, atraumatic. Eyes: Pupils equal round and reactive to light, extra-ocular motions intact. Lids and lashes normal. Conjunctiva and sclera are non-icteric and not injected. Cornea within normal limits. Periorbital areas with no swelling, redness, or edema. ENT: Nares patent. No nasal discharge, no septal abnormalities noted. Tympanic membranes are normal and external auditory canals are clear. Oropharynx with no redness, swelling, or masses, exudates, or evidence of obstruction, uvula midline. Mucous membranes moist. Neck: Trachea midline, no thyromegaly or masses palpated, and no cervical lymphadenopathy. Supple, full range of motion without nuchal rigidity, or vertebral point tenderness. No Meningismus. Chest/axilla: Normal chest wall appearance and motion. Nontender with no deformity. No lesions are appreciated. Cardiovascular: Regular rate and rhythm with a normal S1 and S2. No gallops, murmurs, or rubs. Normal PMI, no JVD. No pulse deficits. Respiratory: Lungs have equal breath sounds bilaterally, clear to auscultation and percussion. No rales, rhonchi or wheezes noted. No increased work of breathing, no retractions or nasal flaring. Abdomen/GI: Soft, non-tender, with normal bowel sounds. No distension or tympany. No guarding or rebound. No evidence of tenderness throughout. Back: No spinal tenderness. No costovertebral tenderness. Full range of motion. Skin: Warm, dry with normal turgor. Normal color with no rashes, no lesions, and no evidence of cellulitis. MS/ Extremity: Pulses equal, no cyanosis. Neurovascular intact. Full, normal range of motion. Neuro: Awake and alert, GCS 15, oriented to person, place, time, and situation. Cranial nerves II-XII grossly intact. Motor strength 5/5 in all extremities. Sensory grossly intact. Cerebellar exam normal. Normal gait. Vital Signs: 18:41 BP 120 / 66; Pulse 94; Resp 16; Temp 99.4(O); Pulse Ox 100% on R/A; Weight 75.3 kg; la1 Height 5 ft. 4 in. (162.56 cm) (R); 19:50 BP 111 / 74; Pulse 71; Resp 16; Temp 98.5; Pulse Ox 100% on R/A; la1 18:41 Body Mass Index 28.49 (75.30 kg, 162.56 cm) la1 [place] Coma Score: 18:43 Eye Response: spontaneous(4). Verbal Response: oriented(5). Motor Response: obeys la1 commands(6). Total: 15. MDM: 19:04 Patient medically screened. kb 19:34 Data reviewed: vital signs, nurses notes. Data interpreted: Pulse oximetry: on room air kb is 100 %. Interpretation: normal. Counseling: I had a detailed discussion with the patient and/or guardian regarding: the historical points, exam findings, and any diagnostic results supporting the discharge/admit diagnosis, lab results, the need for outpatient follow up, a neurologist, to return to the emergency department if symptoms worsen or persist or if there are any questions or concerns that arise at home. ED course: Pt eating during initial exam. Reports she feels fine now. "I have a headache, but I always do after a seizure.". 11/13 19:07 Order name: Basic Metabolic Panel; Complete Time: 19:33 kb 11/13 19:14 Order name: Urine Microscopic Only; Complete Time: 19:41 fc 11/13 19:17 Order name: Urine Dipstick--Ancillary (enter results) [facility] 11/13 19:17 Order name: Urine --Ancillary (enter results) [facility] 11/13 19:41 Order name: Urine Culture [facility] 11/13 19:07 Order name: Urine Dipstick-Ancillary (obtain specimen); Complete Time: 19:14 kb Administered Medications: 19:49 Drug: Macrobid 100 mg Route: PO; la1 19:49 Follow up: Response: No adverse reaction la1 Disposition: 11/13/17 19:42 Discharged to Home. Impression: Epilepsy and recurrent seizures, Urinary tract infection, site not specified. - Condition is Stable. - Discharge Instructions: Urinary Tract Infection, Adult, [id number], Seizure, Adult, [id number]. - Prescriptions for Macrobid 100 mg Oral Capsule - take 1 capsule by ORAL route every 12 hours for 7 days; 14 capsule. - Medication Reconciliation Form, Thank You Letter, Antibiotic Education, Prescription Opioid Use form. - Work release form (11/14/17 11:47). eb - Follow up: Emergency Department; When: As needed; Reason: Worsening of condition. Follow up: Private Physician; When: 2 - 3 days; Reason: Recheck today's complaints, Continuance of care, Re-evaluation by your physician. Signatures: Dispatcher [employer] EDShana Goldsmith, BROKERAGE BRANCH MANAGER-C BROKERAGE BRANCH MANAGER-Mich Deras RN RN la1 Elsy Simmons Corrections: (The following items were deleted from the chart) 19:50 19:42 11/13/2017 19:42 Discharged to Home. Impression: Epilepsy and recurrent seizures; la1 Urinary tract infection, site not specified. Condition is Stable. Forms are Medication Reconciliation Form, Thank You Letter, Antibiotic Education, Prescription Opioid Use. Follow up: Emergency Department; When: As needed; Reason: Worsening of condition. Follow up: Private Physician; When: 2 - 3 days; Reason: Recheck today's complaints, Continuance of care, Re-evaluation by your physician. kb
[2017-11-13] MEDS ORDERED: NITROFURAN MACRO 100 MG CAP PO ONE (19:50)
[2017-11-13 19:58] VITALS: O2SAT 100
[2017-11-13 20:02] VITALS: BP 111/74; TEMP 98.5
[2017-11-13 22:16] LABS: Urine Blood NEGATIVE (NEG); Urine Glucose NEGATIVE (NEG); Urine Protein TRACE (NEG); Urine Specific Gravity >1.030 (1.005-1.030); Urine pH 6.5 (5.0-7.0)
== END 2017-11-13 19:50 | disposition home or self-care (01) ==
LOC: ER 18:37
DX: N39.0 Urinary tract infection, site not specified (principal); F41.9 Anxiety disorder, unspecified; F31.9 Bipolar disorder, unspecified
CPT/HCPCS: 36415; 80048; 81003; 81015; 81025; 87086; 87088; 99284

== ENCOUNTER 2017-12-15 16:31 | Emergency (ER) | payer OTHER ==
[2017-12-15] MEDS ORDERED: NA CHLORIDE 0.9% 1,000 ML ONE (17:13)
[2017-12-15 17:45] LABS: BUN Blood Urea Nitrogen 5 mg/dL (7-18); Bicarbonate 23 mmol/L (21-32); Glucose Level 87 mg/dL (74-106); Potassium 3.6 mmol/L (3.5-5.1); Sodium Level 142 mmol/L (136-145)
--- NOTE | 2017-12-15 17:48 | ER ---
Nurse's Notes [facility] Name: Mile Wang Age: 22 yrs Sex: Female : 1995 Arrival Date: 12/15/2017 Time: 16:33 Bed 5 Private MD: Eddie Rosas T Diagnosis: Epilepsy and recurrent seizures Presentation: 12/15 16:36 Presenting complaint: Patient states: I WAS GOING IN AND OUT OF SEIZURES AND MY JOB bp SAID I HAD TO BE CLEARED BEFORE I COULD COME BACK. Transition of care: patient was not received from another setting of care. Onset of symptoms is unknown. Risk Assessment: Do you want to hurt yourself or someone else? Patient reports no desire to harm self or others. Initial Sepsis Screen: Does the patient meet any 2 criteria? No. Patient's initial sepsis screen is negative. Does the patient have a suspected source of infection? No. Patient's initial sepsis screen is negative. Care prior to arrival: None. 16:36 Method Of Arrival: Ambulatory bp 16:36 Acuity: BAIRON 3 bp Triage Assessment: 16:38 General: Appears in no apparent distress. comfortable, Behavior is calm, cooperative, bp appropriate for age. Pain: Denies pain. Neuro: Level of Consciousness is awake, alert, obeys commands, Oriented to person, place, time, situation, Appropriate for age. 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 - Social history:: Smoking status: unknown. - Ebola Screening: : Patient negative for fever greater than or equal to 101.5 degrees Fahrenheit, and additional compatible Ebola Virus Disease symptoms Patient denies exposure to infectious person Patient denies travel to an Ebola-affected area in the 21 days before illness onset No symptoms or risks identified at this time. Screenin:00 Abuse screen: Denies threats or abuse. Denies injuries from another. Nutritional sg screening: No deficits noted. Tuberculosis screening: No symptoms or risk factors identified. Never had TB. Fall Risk None identified. Assessment: 15:00 General: Appears in no apparent distress. comfortable, well groomed, well developed, sg well nourished, Behavior is calm, cooperative, appropriate for age. Pain: Denies pain. Neuro: Level of Consciousness is awake, alert, obeys commands, Oriented to person, place, time, situation, Speech is normal, Facial symmetry appears normal. Cardiovascular: Capillary refill is brisk in bilateral fingers Patient's skin is warm and dry. Chest pain is denied. Respiratory: Airway is patent Respiratory effort is even, unlabored, Respiratory pattern is regular, symmetrical. GI: No signs and/or symptoms were reported involving the gastrointestinal system. : No signs and/or symptoms were reported regarding the genitourinary system. EENT: No signs and/or symptoms were reported regarding the EENT system. Derm: Skin is pink, warm \T\ dry. Musculoskeletal: No signs and/or symptoms reported regarding the musculoskeletal system. Vital Signs: 16:38 BP 117 / 63; Pulse 95; Resp 16; Temp 97.6; Pulse Ox 97% ; Weight 75.75 kg; Height 5 ft. bp 3 in. (160.02 cm); 16:38 Body Mass Index 29.58 (75.75 kg, 160.02 cm) bp Vitals: 17:45 Heart Tones 156 BPM. sg [place] Coma Score: 16:38 Eye Response: spontaneous(4). Verbal Response: oriented(5). Motor Response: obeys bp commands(6). Total: 15. ED Course: 15:00 Patient has correct armband on for positive identification. Bed in low position. ss 16:33 Patient arrived in ED. as 16:34 Eddie Rosas MD is Private Physician. as 16:37 Triage completed. bp 16:38 Arm band placed on left wrist. bp 16:49 Shana Espinosa FNP-C is PHCP. kb 16:49 Josiah Monae MD is Attending Physician. kb 17:22 Initial lab(s) drawn, by me, sent to lab. Urine collected: clean catch specimen, jb1 cloudy, reinaldo colored. Inserted saline lock: 22 gauge in right antecubital area, using aseptic technique. Blood collected. 17:23 Bob Joseph, RN is Primary Nurse. sg 17:58 No provider procedures requiring assistance completed. IV discontinued, intact, ss bleeding controlled, No redness/swelling at site. Pressure dressing applied. Administered Medications: 17:29 Drug: NS 0.9% 1000 ml Route: IV; Rate: 1000 ml; Site: right antecubital; ss 17:58 Follow up: IV Status: IV converted to saline lock ss Outcome: 17:47 Discharge ordered by . teja 17:58 Discharged to home ambulatory. ss 17:58 Condition: good 17:58 Discharge instructions given to patient, Instructed on discharge instructions, follow up and referral plans. Demonstrated understanding of instructions, follow-up care. 17:59 Patient left the ED. Signatures: Morgan Medeiros jb1 Shana Espinosa, SUBSCRIPTION CREW LEADER-C SUBSCRIPTION CREW LEADER-Ckb Bob Joseph, JUAN M RN Zakiya Michel Shelby, JUAN M RN Davon Santillan, JUAN M RN bp
--- NOTE | 2017-12-15 17:48 | EDPHYS ---
Physician Documentation [facility] Name: Mile Wagn Age: 22 yrs Sex: Female : 1995 Arrival Date: 12/15/2017 Time: 16:33 Bed 5 Private MD: Eddie Rosas T ED Physician Josiah Monae HPI: 12/15 17:22 This 22 yrs old Female presents to ER via Ambulatory with complaints of kb Seizure. 17:22 The patient presents with a history of multiple seizures, an unknown number, the kb episode(s) was witnessed, by a friend. Character of seizure(s): Loss of consciousness: the patient did not lose consciousness, Motor activity: generalized, Incontinence: none, Apnea: the patient did not experience apnea, Circulation: the patient did not experience evidence of pulse disturbance. Seizure onset: at 14:45. Context: the seizure(s) was witnessed, by a friend, occurred on a street or driveway, inside a car, occurred while the patient was sitting, Contributing factors: unknown. Seizure Hx: Original onset: longstanding, Seizure medications: Keppra. Associated injury: The patient did not suffer any apparent associated injury. Current symptoms: headache, that is mild, that is moderate. The patient has experienced similar episodes in the past, chronically. The patient has not recently seen a physician. Pt reports she had multiple seizures while in the car. States she had her keppra level checked on 12/14/17 but hasn't gotten the results yet. Was told my her high risk OB that they would probably have to increase her keppra dosage as her progressed and "I think they will have to increase it now." States she only came to the ER because she won't be able to return to work without getting checked out. Reports headache at this time, but "I always have headaches after seizures.". 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 - Social history:: Smoking status: unknown. - Ebola Screening: : Patient negative for fever greater than or equal to 101.5 degrees Fahrenheit, and additional compatible Ebola Virus Disease symptoms Patient denies exposure to infectious person Patient denies travel to an Ebola-affected area in the 21 days before illness onset No symptoms or risks identified at this time. ROS: 17:22 Constitutional: Negative for fever, chills, and weight loss, Cardiovascular: Negative kb for chest pain, palpitations, and edema, Respiratory: Negative for shortness of breath, cough, wheezing, and pleuritic chest pain, Abdomen/GI: Negative for abdominal pain, nausea, vomiting, diarrhea, and constipation, Back: Negative for injury and pain, : Negative for injury, bleeding, discharge, and swelling, MS/Extremity: Negative for injury and deformity, Skin: Negative for injury, rash, and discoloration. 17:22 Neuro: Positive for headache, seizure activity. Exam: 17:22 Constitutional: This is a well developed, well nourished patient who is awake, alert, kb and in no acute distress. Head/Face: Normocephalic, atraumatic. Eyes: Pupils equal round and reactive to light, extra-ocular motions intact. Lids and lashes normal. Conjunctiva and sclera are non-icteric and not injected. Cornea within normal limits. Periorbital areas with no swelling, redness, or edema. Neck: Trachea midline, no thyromegaly or masses palpated, and no cervical lymphadenopathy. Supple, full range of motion without nuchal rigidity, or vertebral point tenderness. No Meningismus. Chest/axilla: Normal chest wall appearance and motion. Nontender with no deformity. No lesions are appreciated. Cardiovascular: Regular rate and rhythm with a normal S1 and S2. No gallops, murmurs, or rubs. Normal PMI, no JVD. No pulse deficits. Respiratory: Lungs have equal breath sounds bilaterally, clear to auscultation and percussion. No rales, rhonchi or wheezes noted. No increased work of breathing, no retractions or nasal flaring. Abdomen/GI: Soft, non-tender, with normal bowel sounds. No distension or tympany. No guarding or rebound. No evidence of tenderness throughout. Skin: Warm, dry with normal turgor. Normal color with no rashes, no lesions, and no evidence of cellulitis. MS/ Extremity: Pulses equal, no cyanosis. Neurovascular intact. Full, normal range of motion. Neuro: Awake and alert, GCS 15, oriented to person, place, time, and situation. Cranial nerves II-XII grossly intact. Motor strength 5/5 in all extremities. Sensory grossly intact. Cerebellar exam normal. Normal gait. Vital Signs: 16:38 BP 117 / 63; Pulse 95; Resp 16; Temp 97.6; Pulse Ox 97% ; Weight 75.75 kg; Height 5 ft. bp 3 in. (160.02 cm); 16:38 Body Mass Index 29.58 (75.75 kg, 160.02 cm) bp Capo Coma Score: 16:38 Eye Response: spontaneous(4). Verbal Response: oriented(5). Motor Response: obeys bp commands(6). Total: 15. MDM: 16:49 Patient medically screened. kb 17:22 Data reviewed: vital signs, nurses notes. Data interpreted: Pulse oximetry: on room air kb is 97 %. Interpretation: normal. 17:46 Counseling: I had a detailed discussion with the patient and/or guardian regarding: the kb historical points, exam findings, and any diagnostic results supporting the discharge/admit diagnosis, lab results, the need for outpatient follow up, a neurologist, an OB/Gyne specialist, to return to the emergency department if symptoms worsen or persist or if there are any questions or concerns that arise at home. 12/15 16:55 Order name: Basic Metabolic Panel; Complete Time: 17:46 kb 12/15 17:35 Order name: Urine Dipstick--Ancillary (enter results) bd 12/15 16:55 Order name: FHT's; Complete Time: 17:45 kb 12/15 16:55 Order name: Urine Dipstick-Ancillary (obtain specimen); Complete Time: 17:22 kb 12/15 17:35 Order name: Urine --Ancillary (enter results) bd Administered Medications: 17:29 Drug: NS 0.9% 1000 ml Route: IV; Rate: 1000 ml; Site: right antecubital; ss 17:58 Follow up: IV Status: IV converted to saline lock ss Disposition: 12/15/17 17:47 Discharged to Home. Impression: Epilepsy and recurrent seizures. - Condition is Stable. - Discharge Instructions: Seizure, Adult, [id number]. - Work release form, Medication Reconciliation Form, Thank You Letter, Antibiotic Education, Prescription Opioid Use form. - Follow up: Emergency Department; When: As needed; Reason: Worsening of condition. Follow up: Private Physician; When: 2 - 3 days; Reason: Recheck today's complaints, Continuance of care, Re-evaluation by your physician. Addendum: 12/16/2017 18:07 Co-signature as Attending Physician, Josiah Monae MD. g s Signatures: Dispatcher [employer] EDMS Shana Espinosa, DRY PASTE SUPERVISOR-C DRY PASTE SUPERVISOR-Beverley Castano, JUAN M RN ss Josiah Monae MD MD Davon Santillan, RN RN bp Corrections: (The following items were deleted from the chart) 12/15 17:59 17:47 12/15/2017 17:47 Discharged to Home. Impression: Epilepsy and recurrent seizures. ss Condition is Stable. Forms are Medication Reconciliation Form, Thank You Letter, Antibiotic Education, Prescription Opioid Use. Follow up: Emergency Department; When: As needed; Reason: Worsening of condition. Follow up: Private Physician; When: 2 - 3 days; Reason: Recheck today's complaints, Continuance of care, Re-evaluation by your physician. kb
[2017-12-15 18:09] VITALS: BP 117/63; TEMP 97.6; O2SAT 97
[2017-12-15 18:49] LABS: Urine Blood NEGATIVE (NEG); Urine Glucose NEGATIVE (NEG); Urine Protein NEGATIVE (NEG); Urine Specific Gravity 1.025 (1.005-1.030)
== END 2017-12-15 17:59 | disposition home or self-care (01) ==
LOC: ER 16:31
DX: O99.352 Diseases of the nervous system complicating pregnancy, second trimester (principal)
CPT/HCPCS: 36415; 80048; 81003; 81025; 99284; J7030

== ENCOUNTER 2017-12-20 18:53 | Emergency (ER) | payer OTHER ==
[2011-10-23 01:37] VITALS: BP 124/77
--- NOTE | 2017-12-20 19:48 | EDPHYS ---
Physician Documentation [facility] Name: Mile Wang Age: 22 yrs Sex: Female : 1995 Arrival Date: 12/20/2017 Time: 18:55 Bed 13 Private MD: ED Physician Josiah Monae HPI: 12/20 19:36 The patient presents after having a single isolated seizure. Seizure onset: just prior gs to arrival, today. Seizure Hx: Usual frequency: roughly every 1 week(s). Current symptoms: Currently, the patient is not experiencing any symptoms, the patient feels back to baseline. The patient has experienced similar episodes in the past, chronically. 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 - Social history:: Smoking status: unknown. - Ebola Screening: : No symptoms or risks identified at this time. ROS: 19:36 All other systems are negative. gs 19:36 Abdomen/GI: Negative for abdominal pain, abdominal cramps. gs Exam: 19:36 Head/Face: Normocephalic, atraumatic. Eyes: Pupils equal round and reactive to light, gs extra-ocular motions intact. Lids and lashes normal. Conjunctiva and sclera are non-icteric and not injected. Cornea within normal limits. Periorbital areas with no swelling, redness, or edema. ENT: Nares patent. No nasal discharge, no septal abnormalities noted. Tympanic membranes are normal and external auditory canals are clear. Oropharynx with no redness, swelling, or masses, exudates, or evidence of obstruction, uvula midline. Mucous membranes moist. Neck: Trachea midline, no thyromegaly or masses palpated, and no cervical lymphadenopathy. Supple, full range of motion without nuchal rigidity, or vertebral point tenderness. No Meningismus. Chest/axilla: Normal chest wall appearance and motion. Nontender with no deformity. No lesions are appreciated. Cardiovascular: Regular rate and rhythm with a normal S1 and S2. No gallops, murmurs, or rubs. Normal PMI, no JVD. No pulse deficits. Respiratory: Lungs have equal breath sounds bilaterally, clear to auscultation and percussion. No rales, rhonchi or wheezes noted. No increased work of breathing, no retractions or nasal flaring. Back: No spinal tenderness. No costovertebral tenderness. Full range of motion. Skin: Warm, dry with normal turgor. Normal color with no rashes, no lesions, and no evidence of cellulitis. MS/ Extremity: Pulses equal, no cyanosis. Neurovascular intact. Full, normal range of motion. Neuro: Awake and alert, GCS 15, oriented to person, place, time, and situation. Cranial nerves II-XII grossly intact. Motor strength 5/5 in all extremities. Sensory grossly intact. Cerebellar exam normal. Normal gait. 19:36 Constitutional: The patient appears alert, awake. Vital Signs: 19:01 BP 119 / 59; Pulse 112; Resp 16; Pulse Ox 98% on R/A; la1 19:50 BP 112 / 58; Pulse 88; Resp 16 S; Pulse Ox 98% on R/A; Pain 0/10; cc3 Capo Coma Score: 19:15 Eye Response: spontaneous(4). Verbal Response: oriented(5). Motor Response: obeys cc3 commands(6). Total: 15. MDM: 19:36 Patient medically screened. 19:36 Differential diagnosis: seizure. Data reviewed: vital signs, nurses notes. Response to treatment: the patient's symptoms have resolved after treatment, and as a result, I will discharge patient. Administered Medications: No medications were administered Disposition: 12/20/17 19:48 Discharged to Home. Impression: Epilepsy and recurrent seizures. - Condition is Stable. - Discharge Instructions: Seizure, Adult. - Prescriptions for Keppra 500 mg Oral Tablet - take 0.5 tablet by ORAL route every 12 hours As needed increase dose to 1250 bid per your physician's agreement if still having breakthrough seizures; 20 tablet. - Medication Reconciliation Form, Thank You Letter, Antibiotic Education, Prescription Opioid Use, Work release form form. - Follow up: Private Physician; When: 2 - 3 days; Reason: Re-evaluation by your physician. Signatures: Mich Krueger RN RN la1 Josiah Monae MD MD Amaris Brennan cc3 Corrections: (The following items were deleted from the chart) 20:01 19:48 12/20/2017 19:48 Discharged to Home. Impression: Epilepsy and recurrent seizures. cc3 Condition is Stable. Forms are Medication Reconciliation Form, Thank You Letter, Antibiotic Education, Prescription Opioid Use. Follow up: Private Physician; When: 2 - 3 days; Reason: Re-evaluation by your physician.
--- NOTE | 2017-12-20 19:48 | ER ---
Nurse's Notes [facility] Name: Mile Wang Age: 22 yrs Sex: Female : 1995 Arrival Date: 12/20/2017 Time: 18:55 Bed 13 Private MD: Diagnosis: Epilepsy and recurrent seizures Presentation: 12/20 18:55 Presenting complaint: Patient states: Pt 22 weeks with hx of seizures, had la1 grand mal seizure tonight, was post ictal upon ems arrival to scene, pt is now alert/oriented x4. Transition of care: patient was not received from another setting of care. Onset of symptoms was December 20, 2017. Risk Assessment: Do you want to hurt yourself or someone else? Patient reports no desire to harm self or others. Initial Sepsis Screen: Does the patient meet any 2 criteria? No. Patient's initial sepsis screen is negative. Does the patient have a suspected source of infection? No. Patient's initial sepsis screen is negative. Care prior to arrival: IV initiated. 20 GA, in the right hand. 18:55 Method Of Arrival: EMS: [facility] la1 18:55 Acuity: BAIRON 3 la1 Triage Assessment: 19:15 General: Appears in no apparent distress. comfortable, Behavior is calm, cooperative, cc3 appropriate for age. Pain: Denies pain. Neuro: Level of Consciousness is awake, alert, obeys commands, Oriented to person, place, time, situation, Appropriate for age. 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 - Social history:: Smoking status: unknown. - Ebola Screening: : No symptoms or risks identified at this time. Screenin:15 Abuse screen: Denies threats or abuse. Denies injuries from another. Nutritional cc3 screening: No deficits noted. Tuberculosis screening: No symptoms or risk factors identified. Fall Risk Ambulatory Aid- None/Bed Rest/Nurse Assist (0 pts). Gait- Normal/Bed Rest/Wheelchair (0 pts) Mental Status- Oriented to own ability (0 pts). Assessment: 19:15 General: Appears in no apparent distress. comfortable, Behavior is calm, cooperative, cc3 appropriate for age. Pain: Denies pain. Neuro: Level of Consciousness is awake, alert, obeys commands, Oriented to person, place, time, situation, Appropriate for age. Cardiovascular: Denies chest pain. Respiratory: Airway is patent Respiratory effort is even, unlabored, Respiratory pattern is regular, symmetrical. GI: Abdomen is flat, non-distended. : No signs and/or symptoms were reported regarding the genitourinary system. EENT: No signs and/or symptoms were reported regarding the EENT system. Derm: No signs and/or symptoms reported regarding the dermatologic system. Musculoskeletal: Circulation, motion, and sensation intact. Range of motion: intact in all extremities. 20:00 Reassessment: Patient appears in no apparent distress at this time. Patient and/or cc3 family updated on plan of care and expected duration. Pain level reassessed. Patient is alert, oriented x 3, equal unlabored respirations, skin warm/dry/pink. Dr. Monae discharged home the patient with prescription given. IV cannula removed and patient left ER vitally stable and ambulatory. Patient denies pain at this time. Vital Signs: 19:01 BP 119 / 59; Pulse 112; Resp 16; Pulse Ox 98% on R/A; la1 19:50 BP 112 / 58; Pulse 88; Resp 16 S; Pulse Ox 98% on R/A; Pain 0/10; cc3 Vitals: 19:08 Heart Tones: 157. mh5 Capo Coma Score: 19:15 Eye Response: spontaneous(4). Verbal Response: oriented(5). Motor Response: obeys cc3 commands(6). Total: 15. ED Course: 18:55 Patient arrived in ED. la1 18:56 Triage completed. la1 18:57 Arm band placed on right wrist. la1 19:01 Josiah Monae MD is Attending Physician. gs 19:09 Patient has correct armband on for positive identification. Bed in low position. Call mh5 light in reach. Side rails up X2. Seizure precautions initiated. Warm blanket given. Pulse ox on. NIBP on. 19:17 Amaris Brennan is Primary Nurse. cc3 20:00 No provider procedures requiring assistance completed. IV discontinued, intact, cc3 bleeding controlled, No redness/swelling at site. Pressure dressing applied. Administered Medications: No medications were administered Outcome: 19:48 Discharge ordered by . 20:00 Discharged to home ambulatory. cc3 20:00 Condition: stable 20:00 Discharge instructions given to patient, Instructed on discharge instructions, follow up and referral plans. medication usage, Demonstrated understanding of instructions, follow-up care, medications, Prescriptions given X 1. 20:01 Patient left the ED. cc3 Signatures: Mich Krueger, RN RN Liliana Moyer [facility] Josiah Monae MD MD Amaris Brennan cc3
== END 2017-12-20 20:01 | disposition home or self-care (01) ==
LOC: ER 18:53
DX: O99.352 Diseases of the nervous system complicating pregnancy, second trimester (principal); Z3A.22 22 weeks gestation of pregnancy
CPT/HCPCS: 99283

== ENCOUNTER 2018-01-02 19:57 | Emergency (ER) | payer OTHER ==
[2018-01-02 20:50] LABS: Absolute Lymphocytes (CBC) 2.6 K/uL (0.7-4.9); Absolute Monocytes 0.5 K/uL (0.1-1.3); Absolute Neutrophil 6.1 K/uL (1.8-8.0); Basophils % 0.1 % (0-1.3); Eosinophils % 0.8 % (0-4.4); Hematocrit 35.5 % (36.0-45.0); Lymphocytes % 27.7 % (15.3-44.8); MCH 30.7 pg (27.0-35.0); MCV 89.1 fL (80-100); MPV 8.5 fL (7.6-11.3); Monocytes % 5.7 % (3.3-12.3); RBC Red Blood Cell Count 3.99 M/uL (3.86-4.86)
[2018-01-02 20:54] LABS: Protime INR 0.96
[2018-01-02 20:55] LABS: ALT/SGPT 13 U/L (12-78); AST/SGOT 10 U/L (15-37); Alkaline Phosphatase 60 U/L (45-117); BUN Blood Urea Nitrogen 5 mg/dL (7-18); Bicarbonate 23 mmol/L (21-32); Bilirubin Direct < 0.1 mg/dL (0-0.2); Bilirubin Total 0.2 mg/dL (0.2-1.0); CKMB Creatine Kinase MB < 1.0 ng/mL (0.3-3.6); Creatine Phosphokinase 34 U/L (26-192); Glucose Level 91 mg/dL (74-106); Lipase 82 U/L (73-393); Magnesium 2.3 mg/dL (1.8-2.4); Potassium 3.3 mmol/L (3.5-5.1); Protein, Total 6.1 g/dL (6.4-8.2); Sodium Level 139 mmol/L (136-145)
[2018-01-02 21:22] LABS: Urine Blood NEGATIVE (NEG); Urine Glucose NEGATIVE (NEG); Urine Protein NEGATIVE (NEG)
[2018-01-02 21:26] LABS: Barbiturates NEGATIVE (NEGATIVE); Benzodiazepines NEGATIVE (NEGATIVE); Cocaine NEGATIVE (NEGATIVE); METHAMPHETAM NEGATIVE (NEGATIVE); Methadone NEGATIVE (NEGATIVE); Opiates NEGATIVE (NEGATIVE); Phencyclidine NEGATIVE (NEGATIVE); THC Cannibis POSITIVE (NEGATIVE)
--- NOTE | 2018-01-02 21:56 | EDPHYS ---
Physician Documentation [facility] Name: Mile Wang Age: 22 yrs Sex: Female : 1995 Arrival Date: 01/02/2018 Time: 19:58 Bed 7 Private MD: ED Physician Luis Ceron HPI: 01/02 20:18 This 22 yrs old Female presents to ER via EMS with complaints of Seizure. tw4 20:18 The patient presents after having a single isolated seizure. Character of seizure(s): tw4 Loss of consciousness: the patient experienced loss of consciousness, Motor activity: generalized. Seizure onset: just prior to arrival. Context: the seizure(s) was witnessed, by no one. The patient has not experienced similar symptoms in the past. 20:18 Seizure Hx: it is unknown whether or not the patient has a previous seizure history, tw4 Usual frequency: roughly every 1 month(s). Associated injury: The patient did not suffer any apparent associated injury. Current symptoms: Currently, the patient is not experiencing any symptoms. 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 - Social history:: Smoking status: Patient/guardian denies using tobacco. - Ebola Screening: : Patient negative for fever greater than or equal to 101.5 degrees Fahrenheit, and additional compatible Ebola Virus Disease symptoms Patient denies exposure to infectious person Patient denies travel to an Ebola-affected area in the 21 days before illness onset. ROS: 20:24 Constitutional: Negative for fever, chills, and weight loss, Eyes: Negative for injury, tw4 pain, redness, and discharge, Cardiovascular: Negative for chest pain, palpitations, and edema, Respiratory: Negative for shortness of breath, cough, wheezing, and pleuritic chest pain, Abdomen/GI: Negative for abdominal pain, nausea, vomiting, diarrhea, and constipation, Back: Negative for injury and pain, MS/Extremity: Negative for injury and deformity, Skin: Negative for injury, rash, and discoloration. 20:24 Neuro: Positive for seizure activity. Exam: 20:24 Constitutional: This is a well developed, well nourished patient who is awake, alert, tw4 and in no acute distress. Head/Face: Normocephalic, atraumatic. Chest/axilla: Normal chest wall appearance and motion. Nontender with no deformity. No lesions are appreciated. Cardiovascular: Regular rate and rhythm with a normal S1 and S2. No gallops, murmurs, or rubs. Normal PMI, no JVD. No pulse deficits. Respiratory: Lungs have equal breath sounds bilaterally, clear to auscultation and percussion. No rales, rhonchi or wheezes noted. No increased work of breathing, no retractions or nasal flaring. Abdomen/GI: Soft, non-tender, with normal bowel sounds. No distension or tympany. No guarding or rebound. No evidence of tenderness throughout. Back: No spinal tenderness. No costovertebral tenderness. Full range of motion. MS/ Extremity: Pulses equal, no cyanosis. Neurovascular intact. Full, normal range of motion. Neuro: Awake and alert, GCS 15, oriented to person, place, time, and situation. Cranial nerves II-XII grossly intact. Motor strength 5/5 in all extremities. Sensory grossly intact. Cerebellar exam normal. Normal gait. Vital Signs: 19:59 BP 113 / 55; Pulse 74; Resp 18; Temp 98.0(O); Pulse Ox 96% on R/A; Weight 76.2 kg (R); fc Height 5 ft. 3 in. (160.02 cm) (R); Pain 6/10; 20:55 BP 101 / 62; Pulse 68; Resp 17 S; Pulse Ox 98% on R/A; jd3 21:49 Pulse 65; Resp 16 S; Pulse Ox 98% on R/A; jd3 22:00 BP 106 / 60; Pulse 60; Resp 18; Pulse Ox 99% ; ea 19:59 Body Mass Index 29.76 (76.20 kg, 160.02 cm) fc [place] Coma Score: 20:10 Eye Response: spontaneous(4). Verbal Response: oriented(5). Motor Response: obeys ea commands(6). Total: 15. MDM: 19:58 Patient medically screened. 01/03 05:43 Differential diagnosis: cardiac arrhythmia, seizure, TIA. Data reviewed: vital signs, tw4 nurses notes. Data interpreted: Pulse oximetry: Interpretation: normal. Counseling: I had a detailed discussion with the patient and/or guardian regarding: the historical points, exam findings, and any diagnostic results supporting the discharge/admit diagnosis. Special discussion: I discussed with the patient/guardian in detail that at this point there is no indication for admission to the hospital. It is understood, however, that if the symptoms persist or worsen the patient needs to return immediately for re-evaluation. 01/02 20:04 Order name: UDS 01/02 20:04 Order name: Basic Metabolic Panel; Complete Time: 21:38 01/02 21:38 Interpretation: Normal except: K 3.3; BUN 5; CRE 0.40. 01/02 20:04 Order name: CBC with Diff; Complete Time: 21:38 01/02 21:38 Interpretation: Normal except: HCT 35.5. 01/02 20:04 Order name: Ckmb; Complete Time: 21:38 01/02 21:38 Interpretation: Within normal limits: CKMB < 1.0. 01/02 20:04 Order name: CPK; Complete Time: 21:38 01/02 21:38 Interpretation: Within normal limits: CPK 34. 01/02 20:04 Order name: Hepatic Function; Complete Time: 21:38 01/02 21:38 Interpretation: Normal except: AST 10; TP 6.1; ALB 3.0; A/G 1.0. 01/02 20:04 Order name: Lipase; Complete Time: 21:38 01/02 21:39 Interpretation: Within normal limits: LIP 82. 01/02 20:04 Order name: Magnesium; Complete Time: 21:38 01/02 21:39 Interpretation: Within normal limits: MG 2.3. 01/02 20:04 Order name: Protime (+inr); Complete Time: 21:38 27 21:39 Interpretation: Within normal limits: PT 11.3. tw4 01/02 20:04 Order name: Ptt, Activated; Complete Time: 21:38 tw4 01/02 21:39 Interpretation: Within normal limits: PTT 31.2. tw4 01/02 20:04 Order name: Cardiac monitoring; Complete Time: 20:53 tw4 01/02 20:05 Order name: Urine Drug Screen; Complete Time: 21:38 EDMS 01/02 21:38 Interpretation: THC POSITIVE. tw4 01/02 20:56 Order name: Urine Dipstick--Ancillary (enter results); Complete Time: 21:38 ms 01/02 20:56 Order name: Urine --Ancillary (enter results) ms 01/02 20:04 Order name: IV Saline Lock; Complete Time: 20:38 tw4 01/02 20:04 Order name: Labs collected and sent; Complete Time: 20:38 tw4 01/02 20:04 Order name: NPO; Complete Time: 20:37 tw4 01/02 20:04 Order name: O2 Per Protocol; Complete Time: 20:37 tw4 01/02 20:04 Order name: O2 Sat Monitoring; Complete Time: 20:37 tw4 01/02 20:04 Order name: Urine Dipstick-Ancillary (obtain specimen); Complete Time: 20:53 tw4 Administered Medications: No medications were administered Disposition: 01/02/18 21:55 Discharged to Home. Impression: Epilepsy and recurrent seizures. - Condition is Stable. - Discharge Instructions: Seizure, Adult. - Work release form, Medication Reconciliation Form, Thank You Letter, Antibiotic Education, Prescription Opioid Use form. - Follow up: Private Physician; When: Upon discharge from the Emergency Department; Reason: If symptoms return, Recheck today's complaints, Continuance of care. - Problem is new. - Symptoms have improved. Signatures: Dispatcher [employer] Sheridan Luis RN RN fc Antunez, Elena, RN RN ea Wadley, Terrence, MD MD tw4 Corrections: (The following items were deleted from the chart) 01/02 22:04 21:55 01/02/2018 21:55 Discharged to Home. Impression: Epilepsy and recurrent seizures. ea Condition is Stable. Forms are Medication Reconciliation Form, Thank You Letter, Antibiotic Education, Prescription Opioid Use. Follow up: Private Physician; When: Upon discharge from the Emergency Department; Reason: If symptoms return, Recheck today's complaints, Continuance of care. Problem is new. Symptoms have improved. tw4
--- NOTE | 2018-01-02 21:56 | ER ---
Nurse's Notes [facility] Name: Mile Wang Age: 22 yrs Sex: Female : 1995 Arrival Date: 01/02/2018 Time: 19:58 Bed 7 Private MD: Diagnosis: Epilepsy and recurrent seizures Presentation: 01/02 19:59 Presenting complaint: EMS states: that they were toned out for pt having seizure at work. pt is also 24 weeks preg. Transition of care: patient was not received from another setting of care. Onset of symptoms was January 02, 2018. Risk Assessment: Do you want to hurt yourself or someone else? Patient reports no desire to harm self or others. Initial Sepsis Screen: Does the patient meet any 2 criteria? No. Patient's initial sepsis screen is negative. Does the patient have a suspected source of infection? No. Patient's initial sepsis screen is negative. Care prior to arrival: None. 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 - Social history:: Smoking status: Patient/guardian denies using tobacco. - Ebola Screening: : Patient negative for fever greater than or equal to 101.5 degrees Fahrenheit, and additional compatible Ebola Virus Disease symptoms Patient denies exposure to infectious person Patient denies travel to an Ebola-affected area in the 21 days before illness onset. Screenin:03 Abuse screen: Denies threats or abuse. Nutritional screening: No deficits noted. Tuberculosis screening: No symptoms or risk factors identified. Fall Risk Fall in past 12 months (25 points). Secondary diagnosis (15 points) seizures, No IV (0 pts). Ambulatory Aid- None/Bed Rest/Nurse Assist (0 pts). Gait- Normal/Bed Rest/Wheelchair (0 pts) Mental Status- Overestimates/Forgets Limitations (15 pts.). Total Catalan Fall Scale indicates Low Risk Score (25-44 pts). Fall prevention measures have been instituted. Side Rails Up X 2 Placed close to Nursing Station Frequent Obs/Assesments occuring As available Patient and Family Educated on Fall Prevention Program and strategies. Assessment: 19:50 General: Appears in no apparent distress. Behavior is calm, cooperative, appropriate ea for age. Pain: Complains of pain in headache Quality of pain is described as aching. Neuro: Level of Consciousness is awake, alert, obeys commands, Oriented to person, place, time. Cardiovascular: Heart tones S1 S2 present Patient's skin is warm and dry. Respiratory: Airway is patent Respiratory effort is even, unlabored, Respiratory pattern is regular, symmetrical, Breath sounds are clear bilaterally. GI: No signs and/or symptoms were reported involving the gastrointestinal system. : No signs and/or symptoms were reported regarding the genitourinary system. Derm: Skin is pink, warm \T\ dry. 20:32 Reassessment: Patient and/or family updated on plan of care and expected duration. Pain ea level reassessed. Patient is alert, oriented x 3, equal unlabored respirations, skin warm/dry/pink. 20:54 Reassessment: Patient and/or family updated on plan of care and expected duration. Pain jd3 level reassessed. Patient is alert, oriented x 3, equal unlabored respirations, skin warm/dry/pink. walked to bathroom with even and steady gait. 21:49 Reassessment: Patient and/or family updated on plan of care and expected duration. Pain jd3 level reassessed. Patient is alert, oriented x 3, equal unlabored respirations, skin warm/dry/pink. provider at bedside discussing plan of care. 22:02 Reassessment: Patient and/or family updated on plan of care and expected duration. Pain ea level reassessed. Patient is alert, oriented x 3, equal unlabored respirations, skin warm/dry/pink. Discharge instructions given to patient, verbalized the understanding of instruction. Vital Signs: 19:59 BP 113 / 55; Pulse 74; Resp 18; Temp 98.0(O); Pulse Ox 96% on R/A; Weight 76.2 kg (R); fc Height 5 ft. 3 in. (160.02 cm) (R); Pain 6/10; 20:55 BP 101 / 62; Pulse 68; Resp 17 S; Pulse Ox 98% on R/A; jd3 21:49 Pulse 65; Resp 16 S; Pulse Ox 98% on R/A; jd3 22:00 BP 106 / 60; Pulse 60; Resp 18; Pulse Ox 99% ; ea 19:59 Body Mass Index 29.76 (76.20 kg, 160.02 cm) fc Vitals: 20:25 Heart Tones 152. ea [place] Coma Score: 20:10 Eye Response: spontaneous(4). Verbal Response: oriented(5). Motor Response: obeys ea commands(6). Total: 15. ED Course: 19:58 Patient arrived in ED. 19:58 Luis Ceron MD is Attending Physician. tw4 19:59 Arm band placed on Patient placed in an exam room, on a stretcher. fc 20:02 Triage completed. fc 20:03 Patient has correct armband on for positive identification. Bed in low position. Call fc light in reach. Side rails up X2. Seizure precautions initiated. 20:09 Slime Haywood, RN is Primary Nurse. ea 20:20 Inserted saline lock: 20 gauge in right antecubital area, using aseptic technique. ea Blood collected. 21:15 UDS Sent. ea 22:03 No provider procedures requiring assistance completed. IV discontinued, intact, ea bleeding controlled, No redness/swelling at site. Pressure dressing applied. Administered Medications: No medications were administered Outcome: 21:55 Discharge ordered by . tw4 22:03 Discharged to home ambulatory, with friend. ea 22:03 Condition: good 22:03 Discharge instructions given to patient, Instructed on discharge instructions, follow up and referral plans. Demonstrated understanding of instructions, follow-up care. 22:04 Patient left the ED. ea Signatures: Sheridan Cruz, RN JUAN M Slime Haywood RN RN ea Davies, Jonathon, RN RN jd3 Wadley, Terrence, MD MD tw4 Corrections: (The following items were deleted from the chart) 21:48 20:55 BP 101 / 47; Pulse 68bpm; Resp 17bpm; Spontaneous; Pulse Ox 98% RA; jd3 jd3 21:49 20:55 Pulse 65bpm; Resp 16bpm; Spontaneous; Pulse Ox 98% RA; jd3 jd3
[2018-01-02 22:09] VITALS: TEMP 98
[2018-01-02 22:12] VITALS: BP 106/60; O2SAT 99
== END 2018-01-02 22:04 | disposition home or self-care (01) ==
LOC: ER 19:57
DX: O99.352 Diseases of the nervous system complicating pregnancy, second trimester (principal); G40.802 Other epilepsy, not intractable, without status epilepticus; Z3A.24 24 weeks gestation of pregnancy; F31.9 Bipolar disorder, unspecified
CPT/HCPCS: 36415; 80048; 80076; 80307; 81003; 81025; 82550; 82553; 83690; 83735; 85025; 85610; 85730; 99284

== ENCOUNTER 2018-01-07 02:56 | Emergency (ER) | payer OTHER ==
[2018-01-07] MEDS ORDERED: ACETAMINOPHEN 500 MG TAB ONE (03:55)
[2018-01-07] MEDS ORDERED: NA CHLORIDE 0.9% 100 ML IV ONE (03:55)
[2018-01-07] MEDS ORDERED: CEFTRIAXONE 1000 MG/VIAL ONE (03:55)
[2018-01-07 03:59] LABS: Absolute Lymphocytes (CBC) 3.2 K/uL (0.7-4.9); Absolute Monocytes 0.6 K/uL (0.1-1.3); Absolute Neutrophil 8.3 K/uL (1.8-8.0); Basophils % 0.4 % (0-1.3); Eosinophils % 0.8 % (0-4.4); Hematocrit 35.3 % (36.0-45.0); Lymphocytes % 25.8 % (15.3-44.8); MCH 30.8 pg (27.0-35.0); MPV 8.6 fL (7.6-11.3); Monocytes % 5.1 % (3.3-12.3); RBC Red Blood Cell Count 4.01 M/uL (3.86-4.86)
[2018-01-07 04:11] LABS: BUN Blood Urea Nitrogen 5 mg/dL (7-18); Bicarbonate 22 mmol/L (21-32); Glucose Level 83 mg/dL (74-106); Potassium 3.6 mmol/L (3.5-5.1); Sodium Level 139 mmol/L (136-145)
[2018-01-07 04:45] LABS: Urine Blood 2+ (NEG); Urine Glucose NEGATIVE (NEG); Urine Protein 3+ (NEG); Urine Specific Gravity 1.025 (1.005-1.030)
[2018-01-07 04:49] LABS: Urine Bacteria >50 /HPF (<20); Urine Culture Reflex Order REFLEXED; Urine RBC TNTC /HPF (NONE SEEN)
--- NOTE | 2018-01-07 05:16 | ER ---
Nurse's Notes [facility] Name: Mile Wang Age: 22 yrs Sex: Female : 1995 Arrival Date: 01/07/2018 Time: 02:57 Bed 13 Private MD: Eddie Rosas T Diagnosis: Unspecified genitourinary tract infection in Presentation: 01/07 03:07 Presenting complaint: Patient states: "I feel like I have a bad UTI. it hurts to pee or jd3 even sit down. I feel like I have to pee all the time. I am also 25 weeks .". Transition of care: patient was not received from another setting of care. Onset of symptoms was January 07, 2018. Risk Assessment: Do you want to hurt yourself or someone else? Patient reports no desire to harm self or others. Initial Sepsis Screen: Does the patient meet any 2 criteria? No. Patient's initial sepsis screen is negative. Does the patient have a suspected source of infection? No. Patient's initial sepsis screen is negative. Care prior to arrival: None. 03:07 Method Of Arrival: Ambulatory jd3 03:07 Acuity: BAIRON 4 jd3 Triage Assessment: 03:15 General: Appears in no apparent distress. comfortable, Behavior is calm, cooperative, cc3 appropriate for age. Pain: Complains of pain in vaginal pain, pain with urination. 03:51 EENT: No signs and/or symptoms were reported regarding the EENT system. Neuro: Level of cc3 Consciousness is awake, alert, obeys commands, Oriented to person, place, time, situation, Appropriate for age. Cardiovascular: Denies chest pain. Respiratory: Airway is patent Respiratory effort is even, unlabored, Respiratory pattern is regular, symmetrical. GI: Abdomen is round patient 25 weeks . : Reports pain with urination. Derm: No signs and/or symptoms reported regarding the dermatologic system. Musculoskeletal: Circulation, motion, and sensation intact. Range of motion: intact in all extremities. 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 - Social history:: Smoking status: Patient/guardian denies using tobacco. - Ebola Screening: : Patient negative for fever greater than or equal to 101.5 degrees Fahrenheit, and additional compatible Ebola Virus Disease symptoms. - Family history:: not pertinent. - Hospitalizations: : No recent hospitalization is reported. Screenin:11 Abuse screen: Denies threats or abuse. Nutritional screening: No deficits noted. jd3 Tuberculosis screening: No symptoms or risk factors identified. Fall Risk Ambulatory Aid- None/Bed Rest/Nurse Assist (0 pts). Gait- Normal/Bed Rest/Wheelchair (0 pts) Mental Status- Oriented to own ability (0 pts). Total Catalan Fall Scale indicates No Risk (0-24 pts). Assessment: 04:22 Reassessment: Patient appears in no apparent distress at this time. No changes from community health systems previously documented assessment. Patient and/or family updated on plan of care and expected duration. Pain level reassessed. Patient is alert, oriented x 3, equal unlabored respirations, skin warm/dry/pink. 05:24 Reassessment: Patient appears in no apparent distress at this time. No changes from community health systems previously documented assessment. Patient and/or family updated on plan of care and expected duration. Pain level reassessed. Patient is alert, oriented x 3, equal unlabored respirations, skin warm/dry/pink. Vital Signs: 03:10 BP 120 / 76; Pulse 86; Resp 18 S; Temp 98.4(O); Pulse Ox 100% on R/A; Weight 76.66 kg jd3 (R); Height 5 ft. 3 in. (160.02 cm) (R); Pain 10/10; 04:24 BP 96 / 59; Pulse 71; Resp 16 S; Pulse Ox 98% on R/A; jd3 05:25 BP 102 / 58; Pulse 65; Resp 16 S; Pulse Ox 100% on R/A; jd3 03:10 Body Mass Index 29.94 (76.66 kg, 160.02 cm) community health systems Vitals: 03:29 Heart Tones 146 bpm. cc3 ED Course: 02:57 Patient arrived in ED. am2 02:58 Eddie Rosas MD is Private Physician. am2 03:08 Triage completed. jd3 03:11 Arm band placed on. jd3 03:12 Patient has correct armband on for positive identification. Bed in low position. Call j light in reach. Side rails up X 1. 03:13 Amaris Brennan is Primary Nurse. cc3 03:13 Cheo Maddox MD is Attending Physician. wa 03:40 Inserted saline lock: 20 gauge in right antecubital area, using aseptic technique. cc3 Blood collected. 03:45 Report given to JUAN M Mac. cc3 04:05 Inserted saline lock: 22 gauge in left antecubital area, using aseptic technique. jd3 04:11 Bubba Quinteros RN is Primary Nurse. jd3 05:24 No provider procedures requiring assistance completed. IV discontinued, intact, jd3 bleeding controlled, No redness/swelling at site. Pressure dressing applied. Administered Medications: 04:00 Drug: Tylenol 1000 mg Route: PO; jd3 05:25 Follow up: Response: No adverse reaction jd3 04:12 Drug: Rocephin - (cefTRIAXone) 2 grams Route: IVPB; Infused Over: 30 mins; Site: left jd3 antecubital; 04:34 Follow up: Response: No adverse reaction; IV Status: Completed infusion jd3 Outcome: 05:15 Discharge ordered by . hi 05:24 Discharged to home ambulatory. jd3 05:24 Condition: stable 05:24 Discharge instructions given to patient, Instructed on discharge instructions, follow up and referral plans. medication usage, Demonstrated understanding of instructions, follow-up care, medications, Prescriptions given X 1. 05:26 Patient left the ED. jd3 Addendum: 01/10/2018 15:59 Addendum: Culture Results: Positive urine culture. No further action required. Bacteria s s sensitive to prescribed antibiotic. Signatures: Beverley Holland, RN RN Candy Carson am2 Ceho Maddox MD MD wa Davies, Jonathon, RN RN jAmaris Ortez cc3 Corrections: (The following items were deleted from the chart) 01/07 03:10 03:07 Presenting complaint: Patient states: "I feel like I have a bad UTI. it hurts to jd3 pee or even sit down. I feel like I have to pee all the time." jason 03:52 03:15 Pain: Complains of pain in vaginal pain, pain with urination cc3 cc3
--- NOTE | 2018-01-07 05:16 | EDPHYS ---
Physician Documentation [facility] Name: Mile Wang Age: 22 yrs Sex: Female : 1995 Arrival Date: 01/07/2018 Time: 02:57 Bed 13 Private MD: Eddie Rosas T ED Physician Cheo Maddox HPI: 01/07 03:23 This 22 yrs old Female presents to ER via Ambulatory with complaints of Pain wa With Urination, Vaginal Pain - 25 wks preg. 03:23 The patient presents with urinary symptoms, dysuria, frequency, hesitancy. Onset: The wa symptoms/episode began/occurred today. Modifying factors: The symptoms are alleviated by nothing, the symptoms are aggravated by urinating. Associated signs and symptoms: Pertinent positives: dysuria, urinary frequency, Pertinent negatives: diarrhea, fever, hematuria, vaginal bleeding, vaginal discharge, vomiting. 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 - Social history:: Smoking status: Patient/guardian denies using tobacco. - Ebola Screening: : Patient negative for fever greater than or equal to 101.5 degrees Fahrenheit, and additional compatible Ebola Virus Disease symptoms. - Family history:: not pertinent. - Hospitalizations: : No recent hospitalization is reported. ROS: 03:24 Positive for urinary symptoms, burning with urination, difficulty urinating, wa Negative for hematuria, vaginal bleeding, vaginal discharge. 03:24 Constitutional: Negative for fever, chills, and weight loss, Eyes: Negative for injury, pain, redness, and discharge, ENT: Negative for injury, pain, and discharge, Neck: Negative for injury, pain, and swelling, Cardiovascular: Negative for chest pain, palpitations, and edema, Respiratory: Negative for shortness of breath, cough, wheezing, and pleuritic chest pain, Abdomen/GI: Negative for abdominal pain, nausea, vomiting, diarrhea, and constipation, Back: Negative for injury and pain, MS/Extremity: Negative for injury and deformity, Skin: Negative for injury, rash, and discoloration, Neuro: Negative for headache, weakness, numbness, tingling, and seizure, Psych: Negative for depression, anxiety, suicide ideation, homicidal ideation, and hallucinations. 03:24 : Positive for urinary symptoms. Exam: 03:25 Constitutional: This is a well developed, well nourished patient who is awake, alert, wa and in no acute distress. Head/Face: Normocephalic, atraumatic. Eyes: Pupils equal round and reactive to light, extra-ocular motions intact. Lids and lashes normal. Conjunctiva and sclera are non-icteric and not injected. Cornea within normal limits. Periorbital areas with no swelling, redness, or edema. ENT: Nares patent. No nasal discharge, no septal abnormalities noted. Tympanic membranes are normal and external auditory canals are clear. Oropharynx with no redness, swelling, or masses, exudates, or evidence of obstruction, uvula midline. Mucous membranes moist. Neck: Trachea midline, no thyromegaly or masses palpated, and no cervical lymphadenopathy. Supple, full range of motion without nuchal rigidity, or vertebral point tenderness. No Meningismus. Chest/axilla: Normal chest wall appearance and motion. Nontender with no deformity. No lesions are appreciated. Cardiovascular: Regular rate and rhythm with a normal S1 and S2. No gallops, murmurs, or rubs. Normal PMI, no JVD. No pulse deficits. Respiratory: Lungs have equal breath sounds bilaterally, clear to auscultation and percussion. No rales, rhonchi or wheezes noted. No increased work of breathing, no retractions or nasal flaring. Back: No spinal tenderness. No costovertebral tenderness. Full range of motion. Skin: Warm, dry with normal turgor. Normal color with no rashes, no lesions, and no evidence of cellulitis. MS/ Extremity: Pulses equal, no cyanosis. Neurovascular intact. Full, normal range of motion. Neuro: Awake and alert, GCS 15, oriented to person, place, time, and situation. Cranial nerves II-XII grossly intact. Motor strength 5/5 in all extremities. Sensory grossly intact. Cerebellar exam normal. Normal gait. Psych: Awake, alert, with orientation to person, place and time. Behavior, mood, and affect are within normal limits. 03:25 Abdomen/GI: Inspection: abdomen appears normal, Bowel sounds: normal, Palpation: abdomen is soft and non-tender, in all quadrants. 03:25 : CVA tenderness, is absent. Vital Signs: 03:10 BP 120 / 76; Pulse 86; Resp 18 S; Temp 98.4(O); Pulse Ox 100% on R/A; Weight 76.66 kg jd3 (R); Height 5 ft. 3 in. (160.02 cm) (R); Pain 10/10; 04:24 BP 96 / 59; Pulse 71; Resp 16 S; Pulse Ox 98% on R/A; jd3 05:25 BP 102 / 58; Pulse 65; Resp 16 S; Pulse Ox 100% on R/A; jd3 03:10 Body Mass Index 29.94 (76.66 kg, 160.02 cm) jd3 MDM: 03:13 Patient medically screened. ca 03:26 Differential diagnosis: urinary tract infection, pyelo?. ca 05:14 Data reviewed: vital signs, nurses notes, lab test result(s). Test interpretation: by ca ED physician or midlevel provider: TNTC wbc noted in UA. . Response to treatment: the patient's symptoms have markedly improved after treatment. ED course: improved. will d/c with abx. 01/07 03:54 Order name: Basic Metabolic Panel; Complete Time: 05:11 [facility] 01/07 03:54 Order name: CBC with Automated Diff; Complete Time: 05:11 [facility] 01/07 04:12 Order name: Urine Dipstick--Ancillary (enter results); Complete Time: 05:11 [facility] 01/07 03:22 Order name: IV Saline Lock; Complete Time: 03:44 ca 01/07 03:22 Order name: Labs collected and sent; Complete Time: 03:44 ca 01/07 03:22 Order name: NPO; Complete Time: 03:44 ca 01/07 04:12 Order name: Urine --Ancillary (enter results); Complete Time: 05:11 [facility] 01/07 04:24 Order name: Urine Microscopic Only; Complete Time: 04:51 [facility] 01/07 04:49 Order name: Urine Culture [facility] 01/07 03:22 Order name: Urine Dipstick-Ancillary (obtain specimen); Complete Time: 04:12 ca 01/07 03:22 Order name: Heart Tones; Complete Time: 03:44 ca Administered Medications: 04:00 Drug: Tylenol 1000 mg Route: PO; jd3 05:25 Follow up: Response: No adverse reaction jd3 04:12 Drug: Rocephin - (cefTRIAXone) 2 grams Route: IVPB; Infused Over: 30 mins; Site: left jd3 antecubital; 04:34 Follow up: Response: No adverse reaction; IV Status: Completed infusion jd3 Disposition: 01/07/18 05:15 Discharged to Home. Impression: Unspecified genitourinary tract infection in . - Condition is Stable. - Discharge Instructions: and Urinary Tract Infection. - Prescriptions for Keflex 500 mg Oral Capsule - take 1 capsule by ORAL route every 8 hours for 7 days; 21 capsule. - Medication Reconciliation Form, Thank You Letter, Antibiotic Education, Prescription Opioid Use form. - Follow up: Private Physician; When: 2 - 3 days; Reason: Recheck today's complaints. - Problem is new. - Symptoms have improved. - Notes: you have a bladder infection. take antibiotics as prescribed. see your doctor in 2 days for reassessement. return to ER for fever, chills, vomiting, pain or any worrisome concerns Signatures: Dispatcher [employer] EDPA Cheo Maddox MD MD wa Davies, Jonathon, RN RN jd3 Corrections: (The following items were deleted from the chart) 04:47 04:23 BASIC METABOLIC PANEL+C.LAB.BRZ ordered. EDMS EDMS 04:47 04:23 CBC+H.LAB.BRZ ordered. EDMS EDMS 04:47 04:23 UA MICROSCOPIC+U.LAB.BRZ ordered. EDPA EDMS 05:26 05:15 01/07/2018 05:15 Discharged to Home. Impression: Unspecified genitourinary tract jd3 infection in . Condition is Stable. Forms are Medication Reconciliation Form, Thank You Letter, Antibiotic Education, Prescription Opioid Use. Follow up: Private Physician; When: 2 - 3 days; Reason: Recheck today's complaints. Problem is new. Symptoms have improved. wa
[2018-01-07 05:40] VITALS: TEMP 98.4
[2018-01-07 05:42] VITALS: BP 102/58; O2SAT 100
== END 2018-01-07 05:26 | disposition home or self-care (01) ==
LOC: ER 02:56
DX: O23.92 Unspecified genitourinary tract infection in pregnancy, second trimester (principal); O99.352 Diseases of the nervous system complicating pregnancy, second trimester; G40.802 Other epilepsy, not intractable, without status epilepticus; F31.9 Bipolar disorder, unspecified; Z3A.25 25 weeks gestation of pregnancy
CPT/HCPCS: 36415; 80048; 81003; 81015; 81025; 85025; 87077; 87086; 87088; 87186; 96365; 99284

== ENCOUNTER 2018-02-10 08:36 | Emergency (ER) | payer OTHER ==
--- OUTSIDE RECORDS SUMMARY | 2018-02-10 08:38 | XMS REPORT ---
:1995 [facility] Address [address] [place] [address] [address] [place] [address] Care Team Providers Name Role Phone Unavailable Unavailable Unavailable Problems This patient has no known problems. Allergies, Adverse Reactions, Alerts This patient has no known allergies or adverse reactions. Medications This patient has no known medications.
--- NOTE | 2018-02-10 09:27 | ER ---
Nurse's Notes [facility] Name: Mile Wang Age: 23 yrs Sex: Female : 1995 Arrival Date: 02/10/2018 Time: 08:39 Bed 12 Private MD: Eddie Rosas T Diagnosis: Otitis media, unspecified, bilateral Presentation: 02/10 08:44 Presenting complaint: Patient states: i have body aches and stuffy nose, my ears and tw2 throat hurts and i cough so bad my head hurts, started 2 days ago. Presenting complaint: Patient states: i am also 30 weeks , no abdominal pain or cramping. Transition of care: patient was not received from another setting of care. Onset of symptoms was February 10, 2018. Risk Assessment: Do you want to hurt yourself or someone else? Patient reports no desire to harm self or others. Initial Sepsis Screen: Does the patient meet any 2 criteria? No. Patient's initial sepsis screen is negative. Does the patient have a suspected source of infection? No. Patient's initial sepsis screen is negative. Care prior to arrival: None. 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 - Social history:: Smoking status: Patient/guardian denies using tobacco. - Ebola Screening: : Patient denies travel to an Ebola-affected area in the 21 days before illness onset. Screenin:00 Abuse screen: Denies threats or abuse. Nutritional screening: No deficits noted. tw2 Tuberculosis screening: No symptoms or risk factors identified. Fall Risk None identified. Assessment: 08:59 General: Appears in no apparent distress. Behavior is calm, cooperative, appropriate tw2 for age. Pain: Complains of pain in headache and throat. Neuro: Level of Consciousness is awake, alert, obeys commands, Oriented to person, place, time, situation. Cardiovascular: Patient's skin is warm and dry. Respiratory: Reports cough that is non-productive, Airway is patent Respiratory effort is even, unlabored, Respiratory pattern is regular, symmetrical. GI: No signs and/or symptoms were reported involving the gastrointestinal system. GI: Abdomen is round pt reports 30 weeks . : No signs and/or symptoms were reported regarding the genitourinary system. EENT: Reports nasal congestion nasal discharge. Musculoskeletal: Range of motion: intact in all extremities. 09:38 Reassessment: Patient appears in no apparent distress at this time. No changes from tw2 previously documented assessment. Patient and/or family updated on plan of care and expected duration. Pain level reassessed. Patient is alert, oriented x 3, equal unlabored respirations, skin warm/dry/pink. Vital Signs: 08:45 BP 115 / 70; Pulse 91; Resp 18; Temp 98.7(O); Pulse Ox 98% on R/A; Pain 7/10; tw2 ED Course: 08:39 Patient arrived in ED. sb2 08:39 Eddie Rosas MD is Private Physician. sb2 08:45 Triage completed. tw2 08:46 Shana Espinosa FNP-C is [facility]. kb 08:46 Mesfin Brenner MD is Attending Physician. kb 08:46 Arm band placed on. tw2 08:51 Strep Sent. tw2 08:51 Flu Sent. tw2 08:59 Linda Bush RN is Primary Nurse. tw2 09:00 Bed in low position. Call light in reach. tw2 09:38 No provider procedures requiring assistance completed. Patient did not have IV access tw2 during this emergency room visit. Administered Medications: No medications were administered Outcome: 09:26 Discharge ordered by . kb 09:38 Discharged to home ambulatory. tw2 09:38 Condition: stable 09:38 Discharge instructions given to patient, Instructed on discharge instructions, follow up and referral plans. medication usage, Demonstrated understanding of instructions, follow-up care, medications, Prescriptions given X 1. 09:39 Patient left the ED. tw2 Signatures: Shana Espinosa FNP-C FNP-Ckb Bush, Linda, RN RN tw2 Billeau, Dolores sb2
--- NOTE | 2018-02-10 09:27 | EDPHYS ---
Physician Documentation [facility] Name: Mile Wang Age: 23 yrs Sex: Female : 1995 Arrival Date: 02/10/2018 Time: 08:39 Bed 12 Private MD: Eddie Rosas T ED Physician Mesfin Brenner HPI: 02/10 09:19 This 23 yrs old Female presents to ER via Ambulatory with complaints of Flu kb Symptoms. 09:19 The patient presents with sore throat. The patient describes throat pain as constant. kb Onset: The symptoms/episode began/occurred 3 day(s) ago. Severity of symptoms: At their worst the symptoms were moderate, in the emergency department the symptoms are unchanged. Modifying factors: The symptoms are alleviated by nothing, the symptoms are aggravated by swallowing, Patient's oral intake status: good Denies contact with similarly ill indivduals. Associated signs and symptoms: Pertinent positives: earache, flu-like symptoms, malaise. The patient has not experienced similar symptoms in the past. The patient has not recently seen a physician. 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 - Social history:: Smoking status: Patient/guardian denies using tobacco. - Ebola Screening: : Patient denies travel to an Ebola-affected area in the 21 days before illness onset. ROS: 09:17 Cardiovascular: Negative for chest pain, palpitations, and edema, Respiratory: Negative kb for shortness of breath, cough, wheezing, and pleuritic chest pain, Abdomen/GI: Negative for abdominal pain, nausea, vomiting, diarrhea, and constipation, Back: Negative for injury and pain, MS/Extremity: Negative for injury and deformity, Skin: Negative for injury, rash, and discoloration, Neuro: Negative for headache, weakness, numbness, tingling, and seizure. 09:17 Constitutional: Positive for body aches, fatigue, malaise, Negative for chills, fever, poor PO intake, weight loss. 09:17 ENT: Positive for ear pain, sinus congestion, sore throat. Exam: 09:16 Constitutional: This is a well developed, well nourished patient who is awake, alert, kb and in no acute distress. Head/Face: Normocephalic, atraumatic. Neck: Trachea midline, no thyromegaly or masses palpated, and no cervical lymphadenopathy. Supple, full range of motion without nuchal rigidity, or vertebral point tenderness. No Meningismus. Chest/axilla: Normal chest wall appearance and motion. Nontender with no deformity. No lesions are appreciated. Cardiovascular: Regular rate and rhythm with a normal S1 and S2. No gallops, murmurs, or rubs. Normal PMI, no JVD. No pulse deficits. Respiratory: Lungs have equal breath sounds bilaterally, clear to auscultation and percussion. No rales, rhonchi or wheezes noted. No increased work of breathing, no retractions or nasal flaring. Abdomen/GI: Soft, non-tender, with normal bowel sounds. No distension or tympany. No guarding or rebound. No evidence of tenderness throughout. Skin: Warm, dry with normal turgor. Normal color with no rashes, no lesions, and no evidence of cellulitis. MS/ Extremity: Pulses equal, no cyanosis. Neurovascular intact. Full, normal range of motion. Neuro: Awake and alert, GCS 15, oriented to person, place, time, and situation. Cranial nerves II-XII grossly intact. Motor strength 5/5 in all extremities. Sensory grossly intact. Cerebellar exam normal. Normal gait. 09:16 ENT: External ear(s): are unremarkable, Ear canal(s): are normal, TM's: bulging, bilaterally, erythema, that is mild, that is moderate, bilaterally, fluid levels, on the right, Nose: is normal, Mouth: is normal, Posterior pharynx: is normal. Vital Signs: 08:45 BP 115 / 70; Pulse 91; Resp 18; Temp 98.7(O); Pulse Ox 98% on R/A; Pain 7/10; tw2 MDM: 08:47 Patient medically screened. kb 08:53 Data reviewed: vital signs, nurses notes. Data interpreted: Pulse oximetry: on room air kb is 98 %. Interpretation: normal. 09:26 Counseling: I had a detailed discussion with the patient and/or guardian regarding: the kb historical points, exam findings, and any diagnostic results supporting the discharge/admit diagnosis, lab results, the need for outpatient follow up, a family practitioner, to return to the emergency department if symptoms worsen or persist or if there are any questions or concerns that arise at home. 02/10 08:46 Order name: Flu; Complete Time: 09:26 kb 02/10 08:46 Order name: Strep; Complete Time: 09:22 kb Administered Medications: No medications were administered Disposition: 11:37 Co-signature as Attending Physician, Mesfin Brennre MD. rn Disposition: 02/10/18 09:26 Discharged to Home. Impression: Otitis media, unspecified, bilateral. - Condition is Stable. - Discharge Instructions: Otitis Media, Adult, [id number]. - Prescriptions for Amoxicillin 875 mg Oral Tablet - take 1 tablet by ORAL route every 12 hours for 7 days; 14 tablet. - Medication Reconciliation Form, Thank You Letter, Antibiotic Education, Prescription Opioid Use, Work release form form. - Follow up: Emergency Department; When: As needed; Reason: Worsening of condition. Follow up: Private Physician; When: 2 - 3 days; Reason: Recheck today's complaints, Continuance of care, Re-evaluation by your physician. Signatures: Dispatcher [employer] EDWV Shana Espinosa, CHIEF ADMINISTRATIVE OFFICER-C CHIEF ADMINISTRATIVE OFFICER-Ckb Mesfin Brenner MD MD rn Wise, Tara, RN RN tw2 Corrections: (The following items were deleted from the chart) 09:39 09:26 02/10/2018 09:26 Discharged to Home. Impression: Otitis media, unspecified, tw2 bilateral. Condition is Stable. Forms are Work release form, Medication Reconciliation Form, Thank You Letter, Antibiotic Education, Prescription Opioid Use. Follow up: Emergency Department; When: As needed; Reason: Worsening of condition. Follow up: Private Physician; When: 2 - 3 days; Reason: Recheck today's complaints, Continuance of care, Re-evaluation by your physician. kb
[2018-02-10 09:47] VITALS: BP 115/70; TEMP 98.7; O2SAT 98
== END 2018-02-10 09:39 | disposition home or self-care (01) ==
LOC: ER 08:36
DX: H66.93 Otitis media, unspecified, bilateral (principal); F31.9 Bipolar disorder, unspecified; F41.9 Anxiety disorder, unspecified; F45.8 Other somatoform disorders; Z79.899 Other long term (current) drug therapy
CPT/HCPCS: 87070; 87081; 87804; 99283

== ENCOUNTER 2018-02-12 13:44 | Emergency (ER) | payer OTHER ==
--- OUTSIDE RECORDS SUMMARY | 2018-02-12 13:50 | XMS REPORT ---
:1995 [facility] Address [address] [place] [address] [address] [place] [address] Care Team Providers Name Role Phone Unavailable Unavailable Unavailable Problems This patient has no known problems. Allergies, Adverse Reactions, Alerts This patient has no known allergies or adverse reactions. Medications This patient has no known medications.
--- NOTE | 2018-02-12 14:50 | EDPHYS ---
Physician Documentation [facility] Name: Mile Wang Age: 23 yrs Sex: Female : 1995 Arrival Date: 02/12/2018 Time: 13:45 Bed 12 Private MD: Eddie Rosas T ED Physician Ton Bond HPI: 02/12 14:44 This 23 yrs old Female presents to ER via Ambulatory with complaints of Ear pm1 pain, Needs Work Note. 14:44 The patient presents with pain. The complaints affect the right ear and left ear. pm1 14:44 Onset: The symptoms/episode began/occurred 5 day(s) ago. Modifying factors: The pm1 symptoms are alleviated by nothing, the symptoms are aggravated by nothing. Associated signs and symptoms: Pertinent positives: sinus trouble, Pertinent negatives: fever. Severity of symptoms: in the emergency department the symptoms are unchanged. The patient has been recently seen at the [facility] Emergency Department, this week, for similar complaints was given a prescription for antibiotics, diagnosed with bilateral otitis media. Patient seen here two days ago and diagnosed with bilateral otitis media. Patient started antibiotics yesterday. Patient with bilateral ear pain and is presenting here today with request for reevaluation of ear s because no improvement and she needs a work note with a printed return date. The handwritten date on the prior work release form was not accepted by her work place. Historical: - Allergies: 14:04 No Known Allergies; hb - PMHx: 14:04 Anxiety; Bipolar disorder; Psychogenic Seizures; hb - PSHx: 14:04 None; hb - Immunization history:: Adult Immunizations up to date. - Social history:: Smoking status: Patient/guardian denies using tobacco. - Ebola Screening: : No symptoms or risks identified at this time. ROS: 14:44 Constitutional: Negative for fever, chills, and weight loss, Eyes: Negative for injury, pm1 pain, redness, and discharge. 14:44 Neck: Negative for injury, pain, and swelling, Cardiovascular: Negative for chest pain, palpitations, and edema, Respiratory: Negative for shortness of breath, cough, wheezing, and pleuritic chest pain, Abdomen/GI: Negative for abdominal pain, nausea, vomiting, diarrhea, and constipation, Back: Negative for injury and pain, : Negative for injury, bleeding, discharge, and swelling, MS/Extremity: Negative for injury and deformity, Skin: Negative for injury, rash, and discoloration, Neuro: Negative for headache, weakness, numbness, tingling, and seizure. 14:44 ENT: Positive for ear pain, sinus congestion, Negative for sore throat. Exam: 14:44 Constitutional: This is a well developed, well nourished patient who is awake, alert, pm1 and in no acute distress. Head/Face: Normocephalic, atraumatic. Eyes: Pupils equal round and reactive to light, extra-ocular motions intact. Lids and lashes normal. Conjunctiva and sclera are non-icteric and not injected. Cornea within normal limits. Periorbital areas with no swelling, redness, or edema. ENT: Nares patent. No nasal discharge, no septal abnormalities noted. Tympanic membranes are normal and external auditory canals are clear. Oropharynx with no redness, swelling, or masses, exudates, or evidence of obstruction, uvula midline. Mucous membranes moist. Neck: Trachea midline, no thyromegaly or masses palpated, and no cervical lymphadenopathy. Supple, full range of motion without nuchal rigidity, or vertebral point tenderness. No Meningismus. Chest/axilla: Normal chest wall appearance and motion. Nontender with no deformity. No lesions are appreciated. Cardiovascular: Regular rate and rhythm with a normal S1 and S2. No gallops, murmurs, or rubs. Normal PMI, no JVD. No pulse deficits. Respiratory: Lungs have equal breath sounds bilaterally, clear to auscultation and percussion. No rales, rhonchi or wheezes noted. No increased work of breathing, no retractions or nasal flaring. Abdomen/GI: Soft, non-tender, with normal bowel sounds. No distension or tympany. No guarding or rebound. No evidence of tenderness throughout. Back: No spinal tenderness. No costovertebral tenderness. Full range of motion. Skin: Warm, dry with normal turgor. Normal color with no rashes, no lesions, and no evidence of cellulitis. MS/ Extremity: Pulses equal, no cyanosis. Neurovascular intact. Full, normal range of motion. 14:44 Neuro: Orientation: is normal, Motor: moves all fours, Gait: is steady, at a normal pace, without difficulty. Vital Signs: 14:02 BP 126 / 75; Pulse 76; Resp 16; Temp 98.6; Pulse Ox 100% on R/A; Pain 0/10; hb MDM: 14:41 Patient medically screened. pm1 14:44 Data reviewed: vital signs. Data interpreted: Pulse oximetry: on room air is 100 %. pm1 Interpretation: normal. Counseling: I had a detailed discussion with the patient and/or guardian regarding: the historical points, exam findings, and any diagnostic results supporting the discharge/admit diagnosis, the need for outpatient follow up, to return to the emergency department if symptoms worsen or persist or if there are any questions or concerns that arise at home. Administered Medications: No medications were administered Disposition: 18:17 Co-signature as Attending Physician, Ton Bond MD I agree with the assessment and kdr plan of care. Disposition: 02/12/18 14:49 Discharged to Home. Impression: Otalgia, bilateral. - Condition is Stable. - Discharge Instructions: Earache, Adult. - Work release form, Medication Reconciliation Form, Thank You Letter, Antibiotic Education form. - Follow up: Emergency Department; When: As needed; Reason: Worsening of condition. Follow up: Eddie Rosas MD; When: As needed; Reason: Recheck today's complaints, Continuance of care, Re-evaluation by your physician. - Problem is new. - Symptoms have improved. - Notes: Continue taking the antibiotics prescribed to you Signatures: Ton Bond MD MD [facility] Ted Gu NP [employer] pm1 Cindy Hoff RN RN hb Corrections: (The following items were deleted from the chart) 14:58 14:49 02/12/2018 14:49 Discharged to Home. Impression: Otalgia, bilateral. Condition is hb Stable. Forms are Medication Reconciliation Form, Thank You Letter, Antibiotic Education, Prescription Opioid Use. Follow up: Emergency Department; When: As needed; Reason: Worsening of condition. Follow up: Eddie Rosas; When: As needed; Reason: Recheck today's complaints, Continuance of care, Re-evaluation by your physician. Problem is new. Symptoms have improved. pm1
--- NOTE | 2018-02-12 14:50 | ER ---
Nurse's Notes [facility] Name: Mile Wang Age: 23 yrs Sex: Female : 1995 Arrival Date: 02/12/2018 Time: 13:45 Bed 12 Private MD: Eddie Rosas T Diagnosis: Otalgia, bilateral Presentation: 02/12 14:03 Presenting complaint: Seen in ED 02/10 for sinus congestion and ear pain, needs work hb note today. Transition of care: patient was not received from another setting of care. Onset of symptoms was February 12, 2018. Risk Assessment: Do you want to hurt yourself or someone else? Patient reports no desire to harm self or others. Care prior to arrival: None. 14:03 Method Of Arrival: Ambulatory hb 14:03 Acuity: BAIRON 5 hb Historical: - Allergies: 14:04 No Known Allergies; hb - PMHx: 14:04 Anxiety; Bipolar disorder; Psychogenic Seizures; hb - PSHx: 14:04 None; hb - Immunization history:: Adult Immunizations up to date. - Social history:: Smoking status: Patient/guardian denies using tobacco. - Ebola Screening: : No symptoms or risks identified at this time. Screenin:04 Abuse screen: Denies threats or abuse. Denies injuries from another. Nutritional hb screening: No deficits noted. Tuberculosis screening: No symptoms or risk factors identified. Fall Risk None identified. Vital Signs: 14:02 BP 126 / 75; Pulse 76; Resp 16; Temp 98.6; Pulse Ox 100% on R/A; Pain 0/10; hb ED Course: 13:45 Patient arrived in ED. mr 13:46 Eddie Rosas MD is Private Physician. mr 13:58 Keyonna Lui FNP-C is PHCP. snw 13:59 Ton Bond MD is Attending Physician. snw 14:04 Triage completed. hb 14:04 Arm band placed on right wrist. hb 14:29 Ted Gu NP is PHCP. pm1 14:30 Ton Bond MD is Attending Physician. pm1 14:46 Eddie Rosas MD is Referral Physician. pm1 Administered Medications: No medications were administered Outcome: 14:49 Discharge ordered by MD. pm1 14:58 Patient left the ED. hb Signatures: Keyonna Lui, CARE TEAM COORDINATOR SCHEDULER-C CARE TEAM COORDINATOR SCHEDULER-Csnw Beth Herr mr Ted Gu, WOOD BOAT BUILDER SUPERVISOR WOOD BOAT BUILDER SUPERVISOR pm1 Cindy Hoff, RN RN hb
[2018-02-12 15:44] VITALS: BP 126/75; TEMP 98.6; O2SAT 100
== END 2018-02-12 14:58 | disposition home or self-care (01) ==
LOC: ER 13:44
DX: H92.03 Otalgia, bilateral (principal)
CPT/HCPCS: 99281

== ENCOUNTER 2018-02-24 22:27 | Emergency (ER) | payer OTHER ==
--- NOTE | 2018-02-24 23:15 | ER ---
Nurse's Notes [facility] Name: iMle Wang Age: 23 yrs Sex: Female : 1995 Arrival Date: 02/24/2018 Time: 22:28 Bed 14 Private MD: Diagnosis: related exhaustion and fatigue, third trimester Presentation: 02/24 22:24 Presenting complaint: EMS states: Pt had a seizure approximately 30 minutes ago. When jb4 we arrived on scene the roommates seemed more concerned about her head ache which has been getting worse the past 2-3 days and her cough which has been present for the past 3 weeks. They were going to bring her themselves but the pt reports being too weak to ambulate to the car so the roommates called us out. Last VS 120/60, HR 80, O2 100, temp 98.7, BGL 141. 22:24 Transition of care: patient was not received from another setting of care. Onset of jb4 symptoms was February 21, 2018. Risk Assessment: Do you want to hurt yourself or someone else? Patient reports no desire to harm self or others. Initial Sepsis Screen: Does the patient meet any 2 criteria? HR > 90 bpm. No. Patient's initial sepsis screen is negative. Does the patient have a suspected source of infection? No. Patient's initial sepsis screen is negative. Care prior to arrival: Glucose check: 141. 22:24 Method Of Arrival: EMS: [facility] jb4 22:24 Acuity: BAIRON 3 jb4 Triage Assessment: 22:24 General: Appears in no apparent distress. uncomfortable, Behavior is calm, cooperative, jb4 appropriate for age. Pain: Complains of pain in headache Pain does not radiate. Pain currently is 10 out of 10 on a pain scale. Pain began 2-3 days ago. Aggravated by cough. EENT: No signs and/or symptoms were reported regarding the EENT system. Neuro: Level of Consciousness is awake, alert, obeys commands, Oriented to person, place, time, situation. Cardiovascular: Patient's skin is warm and dry. Respiratory: Reports cough that is non-productive, Airway is patent Respiratory effort is even, unlabored, Respiratory pattern is regular, symmetrical. GI: No signs and/or symptoms were reported involving the gastrointestinal system. : No signs and/or symptoms were reported regarding the genitourinary system. Derm: Skin is intact, Skin is normal. Musculoskeletal: Circulation, motion, and sensation intact. 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 - Social history:: Smoking status: Patient/guardian denies using tobacco, Patient/guardian denies using alcohol. - Ebola Screening: : No symptoms or risks identified at this time. - Family history:: not pertinent. Screenin:24 Abuse screen: Denies threats or abuse. Nutritional screening: No deficits noted. jb4 Tuberculosis screening: No symptoms or risk factors identified. Fall Risk Secondary diagnosis (15 points) seizures, Total Catalan Fall Scale indicates No Risk (0-24 pts). Assessment: 22:24 General: see triage assessment.. jb4 23:34 Reassessment: Patient appears in no apparent distress at this time. Patient and/or jb4 family updated on plan of care and expected duration. Pain level reassessed. Patient is alert, oriented x 3, equal unlabored respirations, skin warm/dry/pink. Vital Signs: 22:24 BP 111 / 67; Pulse 98; Resp 16; Temp 98.9(O); Pulse Ox 96% on R/A; Weight 82.1 kg (R); jb4 Height 5 ft. 3 in. (160.02 cm) (R); Pain 10/10; 23:40 BP 98 / 57; Pulse 75; Resp 16; Pulse Ox 100% on R/A; jb4 22:24 Body Mass Index 32.06 (82.10 kg, 160.02 cm) jb4 Vitals: 22:45 Heart Tones 150. jb4 ED Course: 22:24 Arm band placed on left wrist. jb4 22:24 Patient has correct armband on for positive identification. Placed in gown. Bed in low jb4 position. Call light in reach. Side rails up X 1. Seizure precautions initiated. Pulse ox on. NIBP on. 22:28 Patient arrived in ED. al2 22:31 Theodore Woods, RN is Primary Nurse. jb4 22:38 Zen Villanueva MD is Attending Physician. joe 22:41 Triage completed. jb4 23:48 No provider procedures requiring assistance completed. Patient did not have IV access jb4 during this emergency room visit. Administered Medications: 23:46 Drug: Tussionex Pennkinetic ER 5 ml Route: PO; jb4 23:46 Follow up: Response: No adverse reaction jb4 Outcome: 23:15 Discharge ordered by . [facility] [place] 23:48 Discharged to home via wheelchair, with friend. jb4 23:48 Condition: stable 23:48 Discharge instructions given to patient, Instructed on discharge instructions, follow up and referral plans. medication usage, Demonstrated understanding of instructions, follow-up care, medications, Prescriptions given X 1. 23:48 Patient left the ED. jb4 Signatures: Zen Villanueva MD MD cha Bryson, James, RN RN jb4 Ayesha Salena al2 Corrections: (The following items were deleted from the chart) 22:45 22:24 Pain: Complains of pain in headache Pain does not radiate. Pain currently is 8 jb4 out of 10 on a pain scale. Pain began 2-3 days ago. Aggravated by cough jb4
--- NOTE | 2018-02-24 23:16 | EDPHYS ---
Physician Documentation [facility] Name: Mile Wang Age: 23 yrs Sex: Female : 1995 Arrival Date: 02/24/2018 Time: 22:28 Bed 14 Private MD: ED Physician Zen Villanueva HPI: 02/24 23:09 This 23 yrs old Female presents to ER via EMS with complaints of cough , joe headache and 32 weeks . 23:09 The estimated gestational age is 32 weeks. course: care: at a [facility] clinic. Previous pregnancies: in previous pregnancies patient has had. Associated signs and symptoms: Pertinent positives: headache. The patient or guardian reports cough. Severity of symptoms: At their worst the symptoms were mild, moderate, in the emergency department the symptoms are unchanged. Modifying factors: The symptoms are alleviated by nothing, the symptoms are aggravated by nothing. COOK ROOM SUPERVISOR: 22:24 Verified jb4 Historical: - Allergies: 22:24 Tramadol HCl; jb4 - Home Meds: 22:24 Folic Acid Oral once daily [Active]; Keppra 1250 mg Oral tab 1 tab 2 times per day jb4 [Active]; Lexapro 10 mg Oral tab 1 tab once daily [Active]; vitamins daily [Active]; - PMHx: 22:24 Anxiety; Bipolar disorder; Psychogenic Seizures; jb4 - PSHx: 22:24 Tonsillectomy; jb4 - Immunization history:: Adult Immunizations up to date, Flu vaccine is up to date. - Social history:: Smoking status: Patient/guardian denies using tobacco, Patient/guardian denies using alcohol. - Ebola Screening: : No symptoms or risks identified at this time. - Family history:: not pertinent. ROS: 23:09 Constitutional: Negative for fever, chills, and weight loss, Eyes: Negative for injury, joe pain, redness, and discharge, ENT: Negative for injury, pain, and discharge, Neck: Negative for injury, pain, and swelling, Cardiovascular: Negative for chest pain, palpitations, and edema, Abdomen/GI: Negative for abdominal pain, nausea, vomiting, diarrhea, and constipation, Back: Negative for injury and pain, MS/Extremity: Negative for injury and deformity, Skin: Negative for injury, rash, and discoloration, Neuro: Negative for headache, weakness, numbness, tingling, and seizure, Psych: Negative for depression, anxiety, suicide ideation, homicidal ideation, and hallucinations, Allergy/Immunology: Negative for hives, rash, and allergies, Endocrine: Negative for neck swelling, polydipsia, polyuria, polyphagia, and marked weight changes, Hematologic/Lymphatic: Negative for swollen nodes, abnormal bleeding, and unusual bruising. 23:09 Respiratory: Positive for cough. 23:09 : Negative for urinary frequency, hematuria, pelvic pain, flank pain, burning with urination, bladder incontinence, vaginal bleeding. Exam: 23:09 Constitutional: This is a well developed, well nourished patient who is awake, alert, joe and in no acute distress. Head/Face: Normocephalic, atraumatic. Eyes: Pupils equal round and reactive to light, extra-ocular motions intact. Lids and lashes normal. Conjunctiva and sclera are non-icteric and not injected. Cornea within normal limits. Periorbital areas with no swelling, redness, or edema. ENT: Nares patent. No nasal discharge, no septal abnormalities noted. Tympanic membranes are normal and external auditory canals are clear. Oropharynx with no redness, swelling, or masses, exudates, or evidence of obstruction, uvula midline. Mucous membranes moist. Neck: Trachea midline, no thyromegaly or masses palpated, and no cervical lymphadenopathy. Supple, full range of motion without nuchal rigidity, or vertebral point tenderness. No Meningismus. Chest/axilla: Normal chest wall appearance and motion. Nontender with no deformity. No lesions are appreciated. Cardiovascular: Regular rate and rhythm with a normal S1 and S2. No gallops, murmurs, or rubs. Normal PMI, no JVD. No pulse deficits. Respiratory: Lungs have equal breath sounds bilaterally, clear to auscultation and percussion. No rales, rhonchi or wheezes noted. No increased work of breathing, no retractions or nasal flaring. Abdomen/GI: Soft, non-tender, with normal bowel sounds. No distension or tympany. No guarding or rebound. No evidence of tenderness throughout. Back: No spinal tenderness. No costovertebral tenderness. Full range of motion. Skin: Warm, dry with normal turgor. Normal color with no rashes, no lesions, and no evidence of cellulitis. MS/ Extremity: Pulses equal, no cyanosis. Neurovascular intact. Full, normal range of motion. Neuro: Awake and alert, GCS 15, oriented to person, place, time, and situation. Cranial nerves II-XII grossly intact. Motor strength 5/5 in all extremities. Sensory grossly intact. Cerebellar exam normal. Normal gait. Psych: Awake, alert, with orientation to person, place and time. Behavior, mood, and affect are within normal limits. 23:19 : no vaginal bleeding, no contractions, no lof. [facility] Vital Signs: 22:24 BP 111 / 67; Pulse 98; Resp 16; Temp 98.9(O); Pulse Ox 96% on R/A; Weight 82.1 kg (R); jb4 Height 5 ft. 3 in. (160.02 cm) (R); Pain 10/10; 23:40 BP 98 / 57; Pulse 75; Resp 16; Pulse Ox 100% on R/A; jb4 22:24 Body Mass Index 32.06 (82.10 kg, 160.02 cm) [facility] MDM: 22:38 Patient medically screened. [facility] 23:12 Data reviewed: vital signs, nurses notes, lab test result(s), urinalysis. [facility] 02/24 23:42 Order name: Urine Dipstick--Ancillary (enter results) em 02/24 23:08 Order name: FHT's; Complete Time: 23:34 [facility] 02/24 23:08 Order name: Urine Dipstick-Ancillary (obtain specimen); Complete Time: 23:34 [facility] Administered Medications: 23:46 Drug: Tussionex Pennkinetic ER 5 ml Route: PO; [facility] 23:46 Follow up: Response: No adverse reaction [facility] Disposition: 02/24/18 23:15 Discharged to Home. Impression: related exhaustion and fatigue, third trimester. - Condition is Stable. - Discharge Instructions: Vaginal Bleeding During , Third Trimester, Cough, Adult, [id number], Cough, Adult, Vaginal Bleeding During , Third Trimester, [id number]. - Prescriptions for Guaifenesin AC 10- 100 mg/5 mL Oral Liquid - take 10 milliliters by ORAL route every 4 hours As needed; 120 milliliter. - Medication Reconciliation Form, Thank You Letter, Antibiotic Education, Prescription Opioid Use form. - Follow up: Private Physician; When: 2 - 3 days; Reason: Recheck today's complaints, Continuance of care, Re-evaluation by your physician. - Problem is new. - Symptoms have improved. Signatures: Dispatcher [employer] Zen Lu MD MD cha Bryson, James, RN RN jb4 Corrections: (The following items were deleted from the chart) 23:48 23:15 02/24/2018 23:15 Discharged to Home. Impression: related exhaustion and jb4 fatigue, third trimester. Condition is Stable. Forms are Medication Reconciliation Form, Thank You Letter, Antibiotic Education, Prescription Opioid Use. Follow up: Private Physician; When: 2 - 3 days; Reason: Recheck today's complaints, Continuance of care, Re-evaluation by your physician. Problem is new. Symptoms have improved. joe
[2018-02-24] MEDS ORDERED: HYDROCODONE/CHLORPHEN 5 ML/OSYR ONE (23:51)
[2018-02-24 23:53] VITALS: BP 98/57; O2SAT 100
[2018-02-24 23:54] LABS: Urine Blood NEGATIVE (NEG); Urine Glucose NEGATIVE (NEG); Urine Protein NEGATIVE (NEG); Urine Specific Gravity 1.015 (1.005-1.030); Urine pH 7.5 (5.0-7.0)
--- OUTSIDE RECORDS SUMMARY | 2018-02-26 16:43 | XMS REPORT ---
:1995 [facility] Address [address] [place] [address] [address] [place] [address] Care Team Providers Name Role Phone Unavailable Unavailable Unavailable Problems This patient has no known problems. Allergies, Adverse Reactions, Alerts This patient has no known allergies or adverse reactions. Medications This patient has no known medications.
== END 2018-02-24 23:48 | disposition home or self-care (01) ==
LOC: ER 22:27
DX: O26.813 Pregnancy related exhaustion and fatigue, third trimester (principal); O99.343 Other mental disorders complicating pregnancy, third trimester; F41.9 Anxiety disorder, unspecified; Z3A.32 32 weeks gestation of pregnancy; Z88.5 Allergy status to narcotic agent
CPT/HCPCS: 81003; 99284

== ENCOUNTER 2018-03-30 10:41 | Emergency (ER) | payer OTHER ==
--- OUTSIDE RECORDS SUMMARY | 2018-03-30 10:44 | XMS REPORT ---
:1995 [facility] Address [address] [place] [address] [address] [place] [address] Care Team Providers Name Role Phone Unavailable Unavailable Unavailable Problems This patient has no known problems. Allergies, Adverse Reactions, Alerts This patient has no known allergies or adverse reactions. Medications This patient has no known medications.
--- NOTE | 2018-03-30 11:36 | EDPHYS ---
Physician Documentation [facility] Name: Mile Wang Age: 23 yrs Sex: Female : 1995 Arrival Date: 03/30/2018 Time: 10:44 Bed 24 Private MD: Eddie Rosas T ED Physician Letha Josiah HPI: 03/30 11:28 This 23 yrs old Female presents to ER via Ambulatory with complaints of Cough.gs 11:28 Onset: The symptoms/episode began/occurred 1 week(s) ago. Severity of symptoms: At gs their worst the symptoms were moderate, in the emergency department the symptoms are unchanged. Modifying factors: The symptoms are alleviated by nothing, the symptoms are aggravated by nothing. Associated signs and symptoms: Pertinent positives: headache. The patient has experienced similar episodes in the past, a few times. 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 - Social history:: Smoking status: Patient/guardian denies using tobacco. - Ebola Screening: : Patient denies exposure to infectious person Patient denies travel to an Ebola-affected area in the 21 days before illness onset. ROS: 11:28 All other systems are negative. gs Exam: 11:28 Head/Face: Normocephalic, atraumatic. Eyes: Pupils equal round and reactive to light, gs extra-ocular motions intact. Lids and lashes normal. Conjunctiva and sclera are non-icteric and not injected. Cornea within normal limits. Periorbital areas with no swelling, redness, or edema. ENT: Nares patent. No nasal discharge, no septal abnormalities noted. Tympanic membranes are normal and external auditory canals are clear. Oropharynx with no redness, swelling, or masses, exudates, or evidence of obstruction, uvula midline. Mucous membranes moist. Neck: Trachea midline, no thyromegaly or masses palpated, and no cervical lymphadenopathy. Supple, full range of motion without nuchal rigidity, or vertebral point tenderness. No Meningismus. Chest/axilla: Normal chest wall appearance and motion. Nontender with no deformity. No lesions are appreciated. Cardiovascular: Regular rate and rhythm with a normal S1 and S2. No gallops, murmurs, or rubs. Normal PMI, no JVD. No pulse deficits. Respiratory: Lungs have equal breath sounds bilaterally, clear to auscultation and percussion. No rales, rhonchi or wheezes noted. No increased work of breathing, no retractions or nasal flaring. Back: No spinal tenderness. No costovertebral tenderness. Full range of motion. Skin: Warm, dry with normal turgor. Normal color with no rashes, no lesions, and no evidence of cellulitis. MS/ Extremity: Pulses equal, no cyanosis. Neurovascular intact. Full, normal range of motion. Neuro: Awake and alert, GCS 15, oriented to person, place, time, and situation. Cranial nerves II-XII grossly intact. Motor strength 5/5 in all extremities. Sensory grossly intact. Cerebellar exam normal. Normal gait. 11:28 Constitutional: The patient appears alert, awake. 11:28 Abdomen/GI: Inspection: gravid appearance, Palpation: abdomen is soft and non-tender, in all quadrants. Vital Signs: 11:08 BP 126 / 69; Pulse 101; Resp 20; Temp 98.1(O); Pulse Ox 97% on R/A; Weight 83.46 kg; ss Height 5 ft. 3 in. (160.02 cm); Pain 9/10; 11:08 Body Mass Index 32.59 (83.46 kg, 160.02 cm) ss MDM: 11:25 Patient medically screened. gs 11:28 Differential Diagnosis: Bronchitis Upper Respiratory Infection. Data reviewed: vital gs signs, nurses notes. Response to treatment: the patient's symptoms have mildly improved after treatment, and as a result, I will discharge patient. Administered Medications: No medications were administered Disposition: 03/30/18 11:35 Discharged to Home. Impression: Acute bronchitis. - Condition is Stable. - Prescriptions for guaifenesin 100 mg/5 mL Oral liquid - take 10 milliliter by ORAL route every 4 hours as needed; 150 milliliter. Benadryl 25 mg Oral Capsule - take 1 capsule by ORAL route every 6 hours As needed; 30 tablet. Albuterol Sulfate 90 mcg/actuation - inhale 1-2 puff by INHALATION route every 4-6 hours; 1 Inhaler. - Medication Reconciliation Form, Thank You Letter, Antibiotic Education, Prescription Opioid Use form. - Follow up: Private Physician; When: 2 - 3 days; Reason: Re-evaluation by your physician. Signatures: Beverley Holland RN RN ss Starr, Gregory, MD MD Corrections: (The following items were deleted from the chart) 11:42 11:35 03/30/2018 11:35 Discharged to Home. Impression: Acute bronchitis. Condition is ss Stable. Forms are Medication Reconciliation Form, Thank You Letter, Antibiotic Education, Prescription Opioid Use. Follow up: Private Physician; When: 2 - 3 days; Reason: Re-evaluation by your physician. gs
--- NOTE | 2018-03-30 11:36 | ER ---
Nurse's Notes [facility] Name: Mile Wang Age: 23 yrs Sex: Female : 1995 Arrival Date: 03/30/2018 Time: 10:44 Bed 24 Private MD: Eddie Rosas T Diagnosis: Acute bronchitis Presentation: 03/30 11:06 Presenting complaint: Patient states: productive cough x 1 week with headache while ss coughing. Pt reports despite multiple medications, it has not gotten any better. Transition of care: patient was not received from another setting of care. Onset of symptoms was March 22, 2018. Risk Assessment: Do you want to hurt yourself or someone else? Patient reports no desire to harm self or others. Initial Sepsis Screen: Does the patient meet any 2 criteria? HR > 90 bpm. Does the patient have a suspected source of infection? Yes: Productive cough/pneumonia. Care prior to arrival: None. 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 - Social history:: Smoking status: Patient/guardian denies using tobacco. - Ebola Screening: : Patient denies exposure to infectious person Patient denies travel to an Ebola-affected area in the 21 days before illness onset. Screenin:06 Abuse screen: Denies threats or abuse. Denies injuries from another. Nutritional ss screening: No deficits noted. Tuberculosis screening: No symptoms or risk factors identified. Never had TB. Fall Risk None identified. Assessment: 11:06 General: Appears uncomfortable, Behavior is calm, cooperative, Reports feeling ill for ss > 3 days, Denies fever, fatigue, chills. Pain: Complains of pain in head in entire Pain currently is 9 out of 10 on a pain scale. Quality of pain is described as aching, Pain began 1 week ago Is continuous, Aggravated by coughing. Neuro: Level of Consciousness is awake, alert, obeys commands, Oriented to person, place, time, situation, Return To Vendor are equal bilaterally Speech is normal, Facial symmetry appears normal. Cardiovascular: Capillary refill < 3 seconds is brisk in bilateral fingers. Respiratory: Reports cough that is productive, hacking, persistent since x 1 week Breath sounds are clear bilaterally. GI: No signs and/or symptoms were reported involving the gastrointestinal system. Patient currently denies diarrhea, nausea, vomiting. : No signs and/or symptoms were reported regarding the genitourinary system. EENT: Nares are clear Oral mucosa is moist. Throat is clear. Derm: Skin is intact, is healthy with good turgor, Skin is dry, Skin is pink, warm \T\ dry. normal. Musculoskeletal: Circulation, motion, and sensation intact. Range of motion: intact in all extremities, Swelling absent. Vital Signs: 11:08 BP 126 / 69; Pulse 101; Resp 20; Temp 98.1(O); Pulse Ox 97% on R/A; Weight 83.46 kg; ss Height 5 ft. 3 in. (160.02 cm); Pain 9/10; 11:08 Body Mass Index 32.59 (83.46 kg, 160.02 cm) ED Course: 10:44 Patient arrived in ED. sb2 10:44 Eddie Rosas MD is Private Physician. sb2 11:06 Patient has correct armband on for positive identification. Bed in low position. Call ss light in reach. 11:06 No provider procedures requiring assistance completed. ss 11:07 Triage completed. ss 11:08 Arm band placed on left wrist. 11:16 Josiah Monae MD is Attending Physician. 11:40 Beverley Holland RN is Primary Nurse. 11:42 Patient did not have IV access during this emergency room visit. Administered Medications: No medications were administered Outcome: 11:35 Discharge ordered by . 11:42 Discharged to home ambulatory. 11:42 Condition: good 11:42 Discharge instructions given to patient, Instructed on discharge instructions, follow up and referral plans. medication usage, Demonstrated understanding of instructions, follow-up care, medications, Prescriptions given X 3. 11:42 Patient left the ED. Signatures: Beverley Holland RN RN Josiah Monae MD MD Dolores Duval sb2
[2018-03-30 11:55] VITALS: BP 126/69; TEMP 98.1; O2SAT 97
== END 2018-03-30 11:42 | disposition home or self-care (01) ==
LOC: ER 10:41
DX: J20.9 Acute bronchitis, unspecified (principal)
CPT/HCPCS: 99282

== ENCOUNTER 2018-06-02 10:21 | Emergency (ER) | payer OTHER ==
--- OUTSIDE RECORDS SUMMARY | 2018-06-02 10:46 | XMS REPORT ---
:1995 [facility] Address [address] [place] [address] [address] [place] [address] Care Team Providers Name Role Phone Unavailable Unavailable Unavailable Problems This patient has no known problems. Allergies, Adverse Reactions, Alerts This patient has no known allergies or adverse reactions. Medications This patient has no known medications.
--- NOTE | 2018-06-02 11:33 | ER ---
Nurse's Notes [facility] Name: Mile Wang Age: 23 yrs Sex: Female : 1995 Arrival Date: 06/02/2018 Time: 10:36 Bed 13 Private MD: Diagnosis: Cellulitis of the left forearm Presentation: 06/02 11:00 Presenting complaint: Patient states: redness and swelling to L forearm that began ss yesterday morning. Denies fever and/or drainage. Transition of care: patient was not received from another setting of care. Onset of symptoms was June 01, 2018. Risk Assessment: Do you want to hurt yourself or someone else? Patient reports no desire to harm self or others. Initial Sepsis Screen: Does the patient meet any 2 criteria? No. Patient's initial sepsis screen is negative. Does the patient have a suspected source of infection? Yes: Skin breakdown/wound. Care prior to arrival: None. 11:00 Method Of Arrival: Ambulatory ss 11:00 Acuity: BAIRON 4 ss Historical: - Allergies: 11:12 No Known Allergies; ss - Home Meds: 11:12 None [Active]; ss - PMHx: 11:12 Anxiety; Bipolar disorder; Psychogenic Seizures; ss - PSHx: 11:12 None; ss - Immunization history:: Adult Immunizations up to date. - Social history:: Smoking status: Patient/guardian denies using tobacco. - Ebola Screening: : Patient denies exposure to infectious person Patient denies travel to an Ebola-affected area in the 21 days before illness onset. - Family history:: not pertinent. - Hospitalizations: : No recent hospitalization is reported. Screenin:20 Abuse screen: Denies threats or abuse. Denies injuries from another. Nutritional aj1 screening: No deficits noted. Tuberculosis screening: No symptoms or risk factors identified. Fall Risk None identified. Assessment: 12:20 General: Appears in no apparent distress. uncomfortable, Behavior is calm, cooperative, aj1 appropriate for age. Pain: Complains of pain in dorsal aspect of left forearm. Neuro: Level of Consciousness is awake, alert, obeys commands. Cardiovascular: Patient's skin is warm and dry. Respiratory: Airway is patent Respiratory effort is even, unlabored, Respiratory pattern is regular, symmetrical. Derm: redness and swelling noted to left forearm. Vital Signs: 11:12 BP 114 / 91; Pulse 76; Resp 17; Temp 97.4(TE); Pulse Ox 100% on R/A; Weight 76.66 kg; ss Height 5 ft. 3 in. (160.02 cm); Pain 8/10; 11:12 Body Mass Index 29.94 (76.66 kg, 160.02 cm) ED Course: 10:36 Patient arrived in ED. tw3 11:12 Triage completed. ss 11:12 Arm band placed on right wrist. ss 11:16 Ted Gu NP is PHCP. pm1 11:16 Cheo Maddox MD is Attending Physician. pm1 12:16 Deloris Mosley RN is Primary Nurse. aj1 12:20 Patient has correct armband on for positive identification. Bed in low position. Call aj1 light in reach. Side rails up X 1. 12:20 No provider procedures requiring assistance completed. aj1 12:23 Patient did not have IV access during this emergency room visit. aj1 Administered Medications: 12:20 Drug: predniSONE 40 mg Route: PO; aj1 12:20 Follow up: Response: No adverse reaction aj1 Outcome: 11:32 Discharge ordered by . wa 12:20 Discharged to home ambulatory. aj1 12:20 Condition: good 12:20 Discharge instructions given to patient, Instructed on discharge instructions, follow up and referral plans. medication usage, Demonstrated understanding of instructions, follow-up care, medications, Prescriptions given X 2. 12:23 Patient left the ED. aj1 Signatures: Deloris Mosley RN RN aj1 Beverley Holland RN RN Ted Gu NP PECAN GATHERER pm1 Adeline Sarabia tw3 Cheo Maddox MD MD wa
--- NOTE | 2018-06-02 11:34 | EDPHYS ---
Physician Documentation [facility] Name: Mile Wang Age: 23 yrs Sex: Female : 1995 Arrival Date: 06/02/2018 Time: 10:36 Bed 13 Private MD: ED Physician Cheo Maddox HPI: 06/02 11:26 This 23 yrs old Female presents to ER via Ambulatory with complaints of Arm wa Problem. 11:26 The patient presents with cellulitis of the left forearm, the patient presents with a wa swollen area of the left forearm. Description: The affected area is moderate sized, localized, erythematous, swollen. Onset: The symptoms/episode began/occurred yesterday. Possible cause(s): unknown. Associated signs and symptoms: Pertinent positives: erythema, swelling, pain, redness, increased warmth in area, Pertinent negatives: discharge, drainage. Modifying factors: the symptoms are alleviated by nothing, the symptoms are aggravated by nothing. Severity of symptoms: At their worst the symptoms were moderate, in the emergency department the symptoms are unchanged. The patient has not experienced similar symptoms in the past. The patient has not recently seen a physician. Historical: - Allergies: 11:12 No Known Allergies; ss - Home Meds: 11:12 None [Active]; ss - PMHx: 11:12 Anxiety; Bipolar disorder; Psychogenic Seizures; ss - PSHx: 11:12 None; ss - Immunization history:: Adult Immunizations up to date. - Social history:: Smoking status: Patient/guardian denies using tobacco. - Ebola Screening: : Patient denies exposure to infectious person Patient denies travel to an Ebola-affected area in the 21 days before illness onset. - Family history:: not pertinent. - Hospitalizations: : No recent hospitalization is reported. ROS: 11:28 Constitutional: Negative for fever, chills, and weight loss, Eyes: Negative for injury, wa pain, redness, and discharge, ENT: Negative for injury, pain, and discharge, Neck: Negative for injury, pain, and swelling, Cardiovascular: Negative for chest pain, palpitations, and edema, Respiratory: Negative for shortness of breath, cough, wheezing, and pleuritic chest pain, Abdomen/GI: Negative for abdominal pain, nausea, vomiting, diarrhea, and constipation, Back: Negative for injury and pain, : Negative for injury, bleeding, discharge, and swelling, Neuro: Negative for headache, weakness, numbness, tingling, and seizure, Psych: Negative for depression, anxiety, suicide ideation, homicidal ideation, and hallucinations. 11:28 MS/extremity: Positive for erythema, pain, swelling, tenderness, of the dorsal aspect of left forearm. 11:28 All other systems are negative. 11:29 Skin: Positive for cellulitis, of the dorsal aspect of left forearm. wa Exam: 11:29 Constitutional: This is a well developed, well nourished patient who is awake, alert, wa and in no acute distress. Head/Face: Normocephalic, atraumatic. Eyes: Pupils equal round and reactive to light, extra-ocular motions intact. Lids and lashes normal. Conjunctiva and sclera are non-icteric and not injected. Cornea within normal limits. Periorbital areas with no swelling, redness, or edema. ENT: Nares patent. No nasal discharge, no septal abnormalities noted. Tympanic membranes are normal and external auditory canals are clear. Oropharynx with no redness, swelling, or masses, exudates, or evidence of obstruction, uvula midline. Mucous membranes moist. Neck: Trachea midline, no thyromegaly or masses palpated, and no cervical lymphadenopathy. Supple, full range of motion without nuchal rigidity, or vertebral point tenderness. No Meningismus. Chest/axilla: Normal chest wall appearance and motion. Nontender with no deformity. No lesions are appreciated. Cardiovascular: Regular rate and rhythm with a normal S1 and S2. No gallops, murmurs, or rubs. Normal PMI, no JVD. No pulse deficits. Respiratory: Lungs have equal breath sounds bilaterally, clear to auscultation and percussion. No rales, rhonchi or wheezes noted. No increased work of breathing, no retractions or nasal flaring. Abdomen/GI: Soft, non-tender, with normal bowel sounds. No distension or tympany. No guarding or rebound. No evidence of tenderness throughout. Back: No spinal tenderness. No costovertebral tenderness. Full range of motion. MS/ Extremity: Pulses equal, no cyanosis. Neurovascular intact. Full, normal range of motion. Neuro: Awake and alert, GCS 15, oriented to person, place, time, and situation. Cranial nerves II-XII grossly intact. Motor strength 5/5 in all extremities. Sensory grossly intact. Cerebellar exam normal. Normal gait. Psych: Awake, alert, with orientation to person, place and time. Behavior, mood, and affect are within normal limits. 11:29 Skin: cellulitis, that is moderate, on the dorsal aspect of left forearm. Vital Signs: 11:12 BP 114 / 91; Pulse 76; Resp 17; Temp 97.4(TE); Pulse Ox 100% on R/A; Weight 76.66 kg; ss Height 5 ft. 3 in. (160.02 cm); Pain 8/10; 11:12 Body Mass Index 29.94 (76.66 kg, 160.02 cm) ss MDM: 11:21 Patient medically screened. wa 11:30 Differential diagnosis: cellulitis, insect bite. Data reviewed: vital signs. wa Administered Medications: 12:20 Drug: predniSONE 40 mg Route: PO; aj1 12:20 Follow up: Response: No adverse reaction aj Disposition: 06/02/18 11:32 Discharged to Home. Impression: Cellulitis of the left forearm. - Condition is Stable. - Discharge Instructions: Cellulitis, Adult, [id number]. - Prescriptions for Doxycycline Hyclate 100 mg Oral Tablet - take 1 tablet by ORAL route every 12 hours for 7 days; 14 tablet. Prednisone 20 mg Oral Tablet - take 2 tablets by ORAL route once daily for 4 days; 8 tablet. - Medication Reconciliation Form, Thank You Letter, Antibiotic Education, Prescription Opioid Use form. - Follow up: Private Physician; When: 2 - 3 days; Reason: Recheck today's complaints. - Problem is new. - Symptoms are unchanged. - Notes: take the medication as prescribed. see your doctor for recheck in 2 days. do not squeeze the area Signatures: Deloris Mosley RN RN aj1 Beverley Holland RN RN Cheo Maddox MD MD wa Corrections: (The following items were deleted from the chart) 12:23 11:32 06/02/2018 11:32 Discharged to Home. Impression: Cellulitis of the left forearm. aj1 Condition is Stable. Forms are Medication Reconciliation Form, Thank You Letter, Antibiotic Education, Prescription Opioid Use. Follow up: Private Physician; When: 2 - 3 days; Reason: Recheck today's complaints. Problem is new. Symptoms are unchanged. wa
[2018-06-02 12:28] VITALS: BP 114/91; TEMP 97.4; O2SAT 100
[2018-06-02] MEDS ORDERED: predniSONE 20 MG TAB ONE (12:29)
== END 2018-06-02 12:23 | disposition home or self-care (01) ==
LOC: ER 10:21
DX: L03.114 Cellulitis of left upper limb (principal)
CPT/HCPCS: 99283; J7512

== ENCOUNTER 2018-06-04 14:53 | Emergency (ER) | payer OTHER ==
--- OUTSIDE RECORDS SUMMARY | 2018-06-04 14:55 | XMS REPORT ---
:1995 [facility] Address [address] [place] [address] [address] [place] [address] Care Team Providers Name Role Phone Unavailable Unavailable Unavailable Problems This patient has no known problems. Allergies, Adverse Reactions, Alerts This patient has no known allergies or adverse reactions. Medications This patient has no known medications.
--- NOTE | 2018-06-04 16:14 | EDPHYS ---
Physician Documentation [facility] Name: Mile Wang Age: 23 yrs Sex: Female : 1995 Arrival Date: 06/04/2018 Time: 15:09 Bed 27 Private MD: Eddie Rosas T ED Physician Mesfin Brenner HPI: 06/04 16:09 This 23 yrs old Female presents to ER via Ambulatory with complaints of kb Abscess. 16:09 The patient presents with an abscess of the palmar aspect of left forearm. Description: kb erythematous, swollen, warm. Onset: The symptoms/episode began/occurred 4 day(s) ago. Possible cause(s): unknown. Associated signs and symptoms: Pertinent positives: erythema, swelling, Pertinent negatives: discharge, drainage, foreign body sensation, fever, headache, nausea, shortness of breath, vomiting. Modifying factors: the symptoms are alleviated by nothing, the symptoms are aggravated by pressure, touching. Severity of symptoms: At their worst the symptoms were moderate, in the emergency department the symptoms are unchanged. The patient has not experienced similar symptoms in the past. The patient has been recently seen at the [facility] Emergency Department, this week, for similar complaints was given a prescription for antibiotics. Pt c/o abscess to left forearm that started 4 days ago. Came to ER and was given prednisone and doxycycline, but the doxycycline makes her feel bad and have seizures. . 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 - Social history:: Smoking status: Patient/guardian denies using tobacco. - Ebola Screening: : Patient negative for fever greater than or equal to 101.5 degrees Fahrenheit, and additional compatible Ebola Virus Disease symptoms Patient denies exposure to infectious person Patient denies travel to an Ebola-affected area in the 21 days before illness onset No symptoms or risks identified at this time. ROS: 16:09 Constitutional: Negative for fever, chills, and weight loss, Cardiovascular: Negative kb for chest pain, palpitations, and edema, Respiratory: Negative for shortness of breath, cough, wheezing, and pleuritic chest pain, Abdomen/GI: Negative for abdominal pain, nausea, vomiting, diarrhea, and constipation, MS/Extremity: Negative for injury and deformity, Neuro: Negative for headache, weakness, numbness, tingling, and seizure. 16:09 Skin: Positive for abscess, of the palmar aspect of left forearm. Exam: 16:09 Constitutional: This is a well developed, well nourished patient who is awake, alert, kb and in no acute distress. Head/Face: Normocephalic, atraumatic. Chest/axilla: Normal chest wall appearance and motion. Nontender with no deformity. No lesions are appreciated. Cardiovascular: Regular rate and rhythm with a normal S1 and S2. No gallops, murmurs, or rubs. Normal PMI, no JVD. No pulse deficits. Respiratory: Lungs have equal breath sounds bilaterally, clear to auscultation and percussion. No rales, rhonchi or wheezes noted. No increased work of breathing, no retractions or nasal flaring. Abdomen/GI: Soft, non-tender, with normal bowel sounds. No distension or tympany. No guarding or rebound. No evidence of tenderness throughout. MS/ Extremity: Pulses equal, no cyanosis. Neurovascular intact. Full, normal range of motion. Neuro: Awake and alert, GCS 15, oriented to person, place, time, and situation. Cranial nerves II-XII grossly intact. Motor strength 5/5 in all extremities. Sensory grossly intact. Cerebellar exam normal. Normal gait. 16:09 Skin: abscess, that is small, of the palmar aspect of left forearm, with induration. Vital Signs: 15:14 Weight 76 kg; sg 15:18 BP 124 / 81; Pulse 87; Resp 17 S; Temp 98.4; Pulse Ox 100% on R/A; Pain 10/10; sg MDM: 16:02 Patient medically screened. kb 16:09 Data reviewed: vital signs, nurses notes. Data interpreted: Pulse oximetry: on room air kb is 100 %. Interpretation: normal. Counseling: I had a detailed discussion with the patient and/or guardian regarding: the historical points, exam findings, and any diagnostic results supporting the discharge/admit diagnosis, the need for outpatient follow up, a family practitioner, to return to the emergency department if symptoms worsen or persist or if there are any questions or concerns that arise at home. Administered Medications: 16:19 Drug: Bactrim (160 mg-800 mg (DS) 1 tablet Route: PO; mg2 16:19 Follow up: Response: No adverse reaction; Medication administered at discharge. mg2 Disposition: 17:55 Co-signature as Attending Physician, Mesfin Brenner MD. rn Disposition: 06/04/18 16:14 Discharged to Home. Impression: Cutaneous abscess of left upper limb. - Condition is Stable. - Discharge Instructions: Skin Abscess, [id number]. - Prescriptions for Bactrim DS 800- 160 mg Oral Tablet - take 1 tablet by ORAL route every 12 hours for 7 days; 14 tablet. - Medication Reconciliation Form, Thank You Letter, Antibiotic Education, Prescription Opioid Use form. - Follow up: Emergency Department; When: As needed; Reason: Worsening of condition. Follow up: Private Physician; When: 2 - 3 days; Reason: Recheck today's complaints, Continuance of care, Re-evaluation by your physician. Signatures: Shana Espinosa, KANDY-C COMPUTING ARCHITECT-Bob Garcia RN RN Mesfin Brenner MD MD rn Gardose, Michele, RN RN mg2 Corrections: (The following items were deleted from the chart) 16:23 16:14 06/04/2018 16:14 Discharged to Home. Impression: Cutaneous abscess of left upper mg2 limb. Condition is Stable. Forms are Medication Reconciliation Form, Thank You Letter, Antibiotic Education, Prescription Opioid Use. Follow up: Emergency Department; When: As needed; Reason: Worsening of condition. Follow up: Private Physician; When: 2 - 3 days; Reason: Recheck today's complaints, Continuance of care, Re-evaluation by your physician. kb
--- NOTE | 2018-06-04 16:14 | ER ---
Nurse's Notes [facility] [place], [place] Name: Mile Wang Age: 23 yrs Sex: Female : 1995 Arrival Date: 06/04/2018 Time: 15:09 Bed 27 Private MD: Eddie Rosas T Diagnosis: Cutaneous abscess of left upper limb Presentation: 06/04 15:12 Presenting complaint: Patient states: Was seen here yesterday for redness and swelling sg to the left forearm, still no improvement. Transition of care: patient was not received from another setting of care. Onset of symptoms was June 03, 2018. Risk Assessment: Do you want to hurt yourself or someone else? Patient reports no desire to harm self or others. Initial Sepsis Screen: Does the patient meet any 2 criteria? No. Patient's initial sepsis screen is negative. Does the patient have a suspected source of infection? No. Patient's initial sepsis screen is negative. Care prior to arrival: None. 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 - Social history:: Smoking status: Patient/guardian denies using tobacco. - Ebola Screening: : Patient negative for fever greater than or equal to 101.5 degrees Fahrenheit, and additional compatible Ebola Virus Disease symptoms Patient denies exposure to infectious person Patient denies travel to an Ebola-affected area in the 21 days before illness onset No symptoms or risks identified at this time. Screenin:09 Abuse screen: Denies threats or abuse. Denies injuries from another. Nutritional mg2 screening: No deficits noted. Tuberculosis screening: No symptoms or risk factors identified. Fall Risk None identified. Assessment: 16:19 General: Appears in no apparent distress. comfortable, Behavior is calm, cooperative. mg2 Pain: Complains of pain in palmar aspect of left forearm Pain does not radiate. Pain currently is 2 out of 10 on a pain scale. Quality of pain is described as aching, Pain began gradually, Is intermittent. Neuro: Level of Consciousness is awake, alert, obeys commands, Oriented to person, place, time, situation. Cardiovascular: Capillary refill < 3 seconds Patient's skin is warm and dry. Respiratory: Airway is patent Respiratory effort is even, unlabored, Respiratory pattern is regular, symmetrical. GI: No signs and/or symptoms were reported involving the gastrointestinal system. : No signs and/or symptoms were reported regarding the genitourinary system. EENT: No signs and/or symptoms were reported regarding the EENT system. Derm: Skin is intact, is healthy with good turgor, Abscess located on palmar aspect of left forearm. Musculoskeletal: Circulation, motion, and sensation intact. Capillary refill < 3 seconds. Vital Signs: 15:14 Weight 76 kg; sg 15:18 BP 124 / 81; Pulse 87; Resp 17 S; Temp 98.4; Pulse Ox 100% on R/A; Pain 10/10; sg ED Course: 15:09 Patient arrived in ED. mr 15:09 Eddie Rosas MD is Private Physician. mr 15:10 Arm band placed on. EKG completed in triage. Results shown to MD. EKG completed in sg triage. Results shown to MD. 15:13 Triage completed. sg 16:01 Shana Espinosa F[facility]-C [facility]. kb 16:02 Mesfin Brenner MD is Attending Physician. kb 16:02 Mesfin Paiz, JUAN M is Primary Nurse. mg2 16:09 Patient has correct armband on for positive identification. Door closed. mg2 16:11 No provider procedures requiring assistance completed. mg2 16:22 Patient did not have IV access during this emergency room visit. mg2 Administered Medications: 16:19 Drug: Bactrim (160 mg-800 mg (DS) 1 tablet Route: PO; mg2 16:19 Follow up: Response: No adverse reaction; Medication administered at discharge. mg2 Outcome: 16:14 Discharge ordered by . kb 16:22 Discharged to home ambulatory, with family. mg2 16:22 Condition: stable 16:22 Discharge instructions given to patient, family, Instructed on discharge instructions, follow up and referral plans. medication usage, Demonstrated understanding of instructions, follow-up care, medications, Prescriptions given X 1. 16:23 Patient left the ED. mg2 Signatures: Shana Espinosa, SANDRA GAITAN-Bob Garcia, RN RN Beth Herr mr Mesfin Paiz RN RN mg2
[2018-06-04] MEDS ORDERED: SMZ./TMP. 800/160 MG TABLET ONE (16:27)
[2018-06-04 18:24] VITALS: BP 124/81; TEMP 98.4; O2SAT 100
== END 2018-06-04 16:23 | disposition home or self-care (01) ==
LOC: ER 14:53
DX: L02.414 Cutaneous abscess of left upper limb (principal); F31.9 Bipolar disorder, unspecified; F41.9 Anxiety disorder, unspecified
CPT/HCPCS: 99283

== ENCOUNTER 2018-06-20 16:41 | Emergency (ER) | payer OTHER ==
--- OUTSIDE RECORDS SUMMARY | 2018-06-20 16:44 | XMS REPORT ---
:1995 [facility] Address [address] [place] [address] [address] [place] [address] Care Team Providers Name Role Phone Unavailable Unavailable Unavailable Problems This patient has no known problems. Allergies, Adverse Reactions, Alerts This patient has no known allergies or adverse reactions. Medications This patient has no known medications.
[2018-06-20 18:47] LABS: Urine Blood 3+ (NEG); Urine Glucose NEGATIVE (NEG); Urine Protein 1+ (NEG); Urine Specific Gravity 1.015 (1.005-1.030); Urine pH 8.5 (5.0-7.0)
[2018-06-20] MEDS ORDERED: NA CHLORIDE 0.9% 1,000 ML ONE (18:54)
[2018-06-20 19:20] LABS: Absolute Lymphocytes (CBC) 2.6 K/uL (0.7-4.9); Absolute Monocytes 0.6 K/uL (0.1-1.3); Absolute Neutrophil 3.1 K/uL (1.8-8.0); Basophils % 0.5 % (0-1.3); Eosinophils % 4.7 % (0-4.4); Hematocrit 40.8 % (36.0-45.0); Lymphocytes % 38.8 % (15.3-44.8); MPV 8.9 fL (7.6-11.3); Monocytes % 8.8 % (3.3-12.3); RBC Red Blood Cell Count 4.71 M/uL (3.86-4.86)
[2018-06-20 19:22] LABS: Protime INR 0.98
[2018-06-20 19:38] LABS: BUN Blood Urea Nitrogen 9 mg/dL (7-18); Bicarbonate 32 mmol/L (21-32); Glucose Level 75 mg/dL (74-106); HCG, Quantitative < 1 mIU/mL (1-3); Magnesium 2.3 mg/dL (1.8-2.4); Potassium 3.7 mmol/L (3.5-5.1); Sodium Level 145 mmol/L (136-145)
--- NOTE | 2018-06-20 19:43 | EDPHYS ---
Physician Documentation [facility] Name: Mile Wang Age: 23 yrs Sex: Female : 1995 Arrival Date: 06/20/2018 Time: 16:43 Bed 28 Private MD: Eddie Rosas T ED Physician Zen Villanueva HPI: 06/20 18:35 This 23 yrs old Female presents to ER via Ambulatory with complaints of cp Vaginal Bleeding, Abdominal Pain. 18:35 The patient presents with vaginal bleeding that is moderate. cp 18:35 Onset: The symptoms/episode began/occurred 1 month(s) ago. cp 18:35 Associated signs and symptoms: Pertinent negatives: diarrhea, fever, urinary frequency, cp vomiting. Severity of symptoms: in the emergency department the symptoms are unchanged. The patient is sexually active. The patient's method of control includes IUD. Patient reports having IUD placed approximately 1 month ago and started having vaginal bleeding about 1 week after placement. Patient reports changing pads frequently and soaking through pads. 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 - Social history:: Smoking status: Patient/guardian denies using tobacco. - Ebola Screening: : No symptoms or risks identified at this time. ROS: 18:45 Constitutional: Negative for body aches, chills, fever, poor PO intake. cp 18:45 Eyes: Negative for injury, pain, redness, and discharge. cp 18:45 ENT: Negative for drainage from ear(s), ear pain, sore throat, difficulty swallowing, difficulty handling secretions. 18:45 Cardiovascular: Negative for chest pain, edema, palpitations. 18:45 Respiratory: Negative for cough, shortness of breath, wheezing. 18:45 Abdomen/GI: Positive for abdominal pain, of the lower abdomen, Negative for nausea, vomiting, and diarrhea. 18:45 Back: Negative for pain at rest, pain with movement, radiated pain. 18:45 : Positive for vaginal bleeding, Negative for urinary symptoms. 18:45 Skin: Negative for rash. 18:45 Neuro: Negative for dizziness, headache, syncope, weakness. 18:45 All other systems are negative. Exam: 18:50 Constitutional: The patient appears in no acute distress, alert, awake, non-toxic, well cp developed, well nourished. 18:50 Head/Face: Normocephalic, atraumatic. cp 18:50 Eyes: Periorbital structures: appear normal, Conjunctiva: normal, no exudate, no injection, Sclera: no appreciated abnormality, Lids and lashes: appear normal, bilaterally. 18:50 ENT: External ear(s): are unremarkable, Nose: is normal, Mouth: Lips: moist, Oral mucosa: moist, Posterior pharynx: Airway: no evidence of obstruction, patent. 18:50 Neck: ROM/movement: is normal. 18:50 Chest/axilla: Inspection: normal. 18:50 Cardiovascular: Rate: normal, Rhythm: regular. 18:50 Respiratory: the patient does not display signs of respiratory distress, Respirations: normal, no use of accessory muscles, no retractions, no splinting, no tachypnea, labored breathing, is not present. 18:50 Abdomen/GI: Inspection: abdomen appears normal, Bowel sounds: active, all quadrants, Palpation: soft, in all quadrants, mild abdominal tenderness, in the right lower quadrant and left lower quadrant, voluntary guarding, is not appreciated, involuntary guarding, is not appreciated. 18:50 Back: pain, is absent, ROM is normal. 19:42 : Pelvic Exam: The exam is refused by the patient/guardian. The risks and cp consequences are understood by the patient. Vital Signs: 16:54 BP 129 / 65; Pulse 90; Resp 18 S; Temp 99.1(TE); Pulse Ox 99% on R/A; Weight 77.11 kg aa5 (R); Height 5 ft. 4 in. (162.56 cm) (R); Pain 6/10; 20:19 BP 126 / 70 RA Supine; Pulse 89; Resp 18 S; Pulse Ox 100% on R/A; rv 16:54 Body Mass Index 29.18 (77.11 kg, 162.56 cm) aa5 MDM: 18:08 Patient medically screened. cp 19:00 Differential diagnosis: menorrhea, molar preganancy, Neoplasm ovarian cyst, pelvic cp inflammatory disease, ruptured ectopic , urinary tract infection, vaginosis. 19:42 Data reviewed: vital signs, nurses notes, lab test result(s), radiologic studies, cp ultrasound. 19:42 Counseling: I had a detailed discussion with the patient and/or guardian regarding: the cp historical points, exam findings, and any diagnostic results supporting the discharge/admit diagnosis, lab results, radiology results, the need for outpatient follow up, an OB/Gyne specialist, to return to the emergency department if symptoms worsen or persist or if there are any questions or concerns that arise at home. ED course: VSS. Labs reviewed and H/H stable. Patient reports having appt with primary METAL TILE SETTER tomorrow for f/u. Will discharge to home for continued monitoring. 06/20 18:28 Order name: Urine Dipstick--Ancillary (enter results); Complete Time: 19:39 eb 06/20 19:39 Interpretation: Normal except: UBLD 3+; UPH 8.5; UPROT 1+. cp 06/20 18:28 Order name: Urine --Ancillary (enter results); Complete Time: 19:39 eb 06/20 18:37 Order name: Quantitative Hcg; Complete Time: 19:39 cp 06/20 18:37 Order name: Basic Metabolic Panel; Complete Time: 19:39 cp 06/20 19:39 Interpretation: Normal except: CL 109. cp 06/20 18:37 Order name: CBC with Diff; Complete Time: 19:39 cp 06/20 19:40 Interpretation: Normal except: EOSINOPHIL % 4.7. cp 06/20 18:37 Order name: PT-INR; Complete Time: 19:39 cp 06/20 18:37 Order name: Urine Test (obtain specimen); Complete Time: 19:45 cp 06/20 18:37 Order name: IV Saline Lock; Complete Time: 19:45 cp 06/20 18:37 Order name: Labs collected and sent; Complete Time: 19:45 cp 06/20 18:37 Order name: Magnesium; Complete Time: 19:39 cp 06/20 19:12 Order name: Pelvis Complete EDMS 06/20 18:37 Order name: NPO; Complete Time: 19:44 cp 06/20 18:37 Order name: Urine Dipstick-Ancillary (obtain specimen); Complete Time: 19:44 cp 06/20 18:37 Order name: EKG - Nurse/Tech; Complete Time: 19:44 cp Administered Medications: 18:45 Drug: NS 0.9% 1000 ml Route: IV; Rate: 1 bolus; Site: right antecubital; rv 20:19 Follow up: IV Status: Completed infusion; IV Intake: 1000ml rv Disposition: 06/21 09:08 Co-signature as Attending Physician, Zen Villanueva MD I agree with the assessment and [facility] plan of care. Disposition: 06/20/18 19:43 Discharged to Home. Impression: Abnormal uterine and vaginal bleeding, unspecified. - Condition is Stable. - Discharge Instructions: Abnormal Uterine Bleeding. - Medication Reconciliation Form, Thank You Letter, Antibiotic Education, Prescription Opioid Use, Work release form form. - Follow up: Private Physician; When: primary METAL TILE SETTER; Reason: Recheck today's complaints. - Problem is new. - Symptoms have improved. Signatures: Dispatcher [employer] [facility] Zen Villanueva MD MD cha Calderon, Audri, RN RN aa5 Zen Pierre, PA PA cp Malcolm Pagan, JUAN M RN rv Corrections: (The following items were deleted from the chart) 06/20 19:12 18:38 Transvaginal Study (Probe)+[id number].RAD.BRZ ordered. [facility] 20:23 19:43 06/20/2018 19:43 Discharged to Home. Impression: Abnormal uterine and vaginal rv bleeding, unspecified. Condition is Stable. Forms are Medication Reconciliation Form, Thank You Letter, Antibiotic Education, Prescription Opioid Use. 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 Problem is new. Symptoms have improved. cp
--- NOTE | 2018-06-20 19:43 | ER ---
Nurse's Notes [facility] Name: Mile Wang Age: 23 yrs Sex: Female : 1995 Arrival Date: 06/20/2018 Time: 16:43 Bed 28 Private MD: Eddie Rosas T Diagnosis: Abnormal uterine and vaginal bleeding, unspecified Presentation: 06/20 16:52 Presenting complaint: Patient states: vaginal bleeding that began approximately 1 month aa5 ago. Pt states "I got an IUD placed about a month ago and the bleeding started the week after". Pt also c/o abd pain. Transition of care: patient was not received from another setting of care. Onset of symptoms was 2018. Risk Assessment: Do you want to hurt yourself or someone else? Patient reports no desire to harm self or others. Initial Sepsis Screen: Does the patient meet any 2 criteria? No. Patient's initial sepsis screen is negative. Does the patient have a suspected source of infection? No. Patient's initial sepsis screen is negative. Care prior to arrival: None. 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 - Social history:: Smoking status: Patient/guardian denies using tobacco. - Ebola Screening: : No symptoms or risks identified at this time. Screenin:21 Abuse screen: Denies threats or abuse. Denies injuries from another. Nutritional rv screening: No deficits noted. Tuberculosis screening: No symptoms or risk factors identified. Fall Risk None identified. Assessment: 19:00 General: Appears in no apparent distress. comfortable, Behavior is calm, cooperative. rv 19:00 Pain: Complains of pain in abdomen. Neuro: Level of Consciousness is awake, alert, rv obeys commands, Oriented to person, place, time, situation. Cardiovascular: Capillary refill < 3 seconds. Respiratory: Airway is patent. GI: Abdomen is round. : Urine is clear, Reports vaginal bleeding that is bright red, moderate flow. EENT: No signs and/or symptoms were reported regarding the EENT system. Derm: Skin is intact. Musculoskeletal: No signs and/or symptoms reported regarding the musculoskeletal system. Vital Signs: 16:54 BP 129 / 65; Pulse 90; Resp 18 S; Temp 99.1(TE); Pulse Ox 99% on R/A; Weight 77.11 kg aa5 (R); Height 5 ft. 4 in. (162.56 cm) (R); Pain 6/10; 20:19 BP 126 / 70 RA Supine; Pulse 89; Resp 18 S; Pulse Ox 100% on R/A; rv 16:54 Body Mass Index 29.18 (77.11 kg, 162.56 cm) aa5 ED Course: 16:43 Patient arrived in ED. as 16:43 Eddie Rosas MD is Private Physician. as 16:47 Ultrasound completed. Patient tolerated well. 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 sg3 16:52 Arm band placed on. aa5 16:54 Triage completed. aa5 18:08 Zen Pierre PA is PHCP. cp 18:08 Zen Villanueva MD is Attending Physician. cp 18:25 Malcolm Pagan, JUAN M is Primary Nurse. rv 19:00 Patient has correct armband on for positive identification. Bed in low position. Call rv light in reach. Side rails up X 1. Pulse ox on. NIBP on. 19:30 Inserted saline lock: 20 gauge in right antecubital area, using aseptic technique. rv Blood collected. 19:54 Pelvis Complete In Process Unspecified. EDMS 20:22 No provider procedures requiring assistance completed. IV discontinued, intact, rv bleeding controlled, No redness/swelling at site. Pressure dressing applied. Administered Medications: 18:45 Drug: NS 0.9% 1000 ml Route: IV; Rate: 1 bolus; Site: right antecubital; rv 20:19 Follow up: IV Status: Completed infusion; IV Intake: 1000ml rv Intake: 20:19 IV: 1000ml; Total: 1000ml. rv Outcome: 19:43 Discharge ordered by . cp 20:22 Discharged to home ambulatory. rv 20:22 Condition: good 20:22 Discharge instructions given to patient, Instructed on discharge instructions, follow up and referral plans. Demonstrated understanding of instructions, follow-up care. 20:23 Patient left the ED. rv Signatures: Dispatcher [employer] Zakiya Silva Audri, RN RN aa5 Zen Pierre PA PA cp Godinez, Sarah sg3 Malcolm Pagan, RN RN rv
[2018-06-20 21:07] VITALS: TEMP 99.1
[2018-06-20 21:08] VITALS: BP 126/70; O2SAT 100
--- NOTE | 2018-06-20 21:09 | RAD REPORT ---
EXAM DESCRIPTION: US - Pelvis Complete - 06/20/2018 7:54 pm CLINICAL HISTORY: Pelvic pain COMPARISON: Ultrasound October 2016 TECHNIQUE: Transabdominal pelvic sonography was performed. FINDINGS: Endometrial stripe is 5-6 mm with no focal endometrial mass or polyp identified. IUD is id entifiable and appears well positioned in the endometrial cavity. Myometrium is somewhat heterogeneou s and coarse but no discrete mass is identifiable. Uterus is normal size measuring 7.7 x 4.7 x 6.9 cm . Both ovaries are identified and normal in size. Doppler evaluation shows normal stroma blood flow pat tern. No dominant solid or cystic ovarian or adnexal finding. No fallopian tube dilatation. No blood or fluid seen in the cul de sac. IMPRESSION: As detailed above, pelvic ultrasound study shows no suspicious finding.
== END 2018-06-20 20:23 | disposition home or self-care (01) ==
LOC: ER 16:41
DX: N93.9 Abnormal uterine and vaginal bleeding, unspecified (principal)
CPT/HCPCS: 36415; 76856; 80048; 81003; 81025; 83735; 84702; 85025; 85610; 96360; 96361; 99284; J7030

== ENCOUNTER 2018-07-15 00:21 | Emergency (ER) | payer OTHER ==
--- OUTSIDE RECORDS SUMMARY | 2018-07-15 00:23 | XMS REPORT ---
:1995 [facility] Address [address] [place] [address] [address] [place] [address] Care Team Providers Name Role Phone Unavailable Unavailable Unavailable Problems This patient has no known problems. Allergies, Adverse Reactions, Alerts This patient has no known allergies or adverse reactions. Medications This patient has no known medications.
[2018-07-15 01:41] LABS: Urine Blood NEGATIVE (NEG); Urine Glucose NEGATIVE (NEG); Urine Protein NEGATIVE (NEG)
[2018-07-15 01:46] LABS: Barbiturates NEGATIVE (NEGATIVE); Benzodiazepines NEGATIVE (NEGATIVE); Cocaine NEGATIVE (NEGATIVE); METHAMPHETAM NEGATIVE (NEGATIVE); Methadone NEGATIVE (NEGATIVE); Opiates NEGATIVE (NEGATIVE); Phencyclidine NEGATIVE (NEGATIVE); THC Cannibis NEGATIVE (NEGATIVE)
[2018-07-15 01:51] LABS: Absolute Lymphocytes (CBC) 3.7 K/uL (0.7-4.9); Absolute Monocytes 0.8 K/uL (0.1-1.3); Absolute Neutrophil 4.5 K/uL (1.8-8.0); Basophils % 0.7 % (0-1.3); Lymphocytes % 38.9 % (15.3-44.8); MPV 8.3 fL (7.6-11.3); Monocytes % 7.9 % (3.3-12.3); RBC Red Blood Cell Count 4.66 M/uL (3.86-4.86)
[2018-07-15 01:59] LABS: Protime INR 0.96
[2018-07-15 02:16] LABS: ALT/SGPT 30 U/L (12-78); AST/SGOT 16 U/L (15-37); Albumin 4.2 g/dL (3.4-5.0); Alkaline Phosphatase 82 U/L (45-117); BUN Blood Urea Nitrogen 14 mg/dL (7-18); Bicarbonate 27 mmol/L (21-32); Bilirubin Direct < 0.1 mg/dL (0-0.2); Bilirubin Total 0.3 mg/dL (0.2-1.0); Glucose Level 77 mg/dL (74-106); Potassium 3.4 mmol/L (3.5-5.1); Protein, Total 7.6 g/dL (6.4-8.2); Sodium Level 144 mmol/L (136-145)
--- NOTE | 2018-07-15 05:22 | ER ---
Nurse's Notes [facility] Name: Mile Wang Age: 23 yrs Sex: Female : 1995 Arrival Date: 07/15/2018 Time: 00:25 Bed 16 Private MD: Diagnosis: Poisoning by other parasympatholytics [anticholinergics and antimuscarinics] and spasmolytics, accidental (unintentional) Presentation: 07/15 00:42 Presenting complaint: Patient states: she got really upset and was drinking alcohol bb (half a bottle of rum) tonight and wanted to go to sleep so she drank "a bunch of benadryl" in the last hour. Pt states she did not want to hurt herself she got in a big fight with her boyfriend and they broke up. Transition of care: patient was not received from another setting of care. Onset of symptoms was July 15, 2018. Risk Assessment: Do you want to hurt yourself or someone else? Patient reports no desire to harm self or others. Initial Sepsis Screen: Does the patient meet any 2 criteria? No. Patient's initial sepsis screen is negative. Does the patient have a suspected source of infection? No. Patient's initial sepsis screen is negative. Care prior to arrival: None. 00:42 Method Of Arrival: Ambulatory bb 00:42 Acuity: BAIRON 2 bb Triage Assessment: 00:47 General: Appears in no apparent distress. uncomfortable, Behavior is anxious, flat, bb Reports feeling very upset tonight after fight and break-up with her boyfriend, drank half a bottle of rum and drank a bunch of benadryl stating she was tring to go to sleep. Pain: Denies pain. Neuro: Level of Consciousness is awake, alert, obeys commands, Oriented to person, place, time, situation. Cardiovascular: No deficits noted. Cardiovascular: Capillary refill < 3 seconds Patient's skin is warm and dry. Rhythm is sinus tachycardia. Respiratory: Respiratory effort is even, unlabored. GI: No signs and/or symptoms were reported involving the gastrointestinal system. Derm: Skin is pink, warm \\T\\ dry. Musculoskeletal: Circulation, motion, and sensation intact. 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 - Social history:: Smoking status: Patient/guardian denies using tobacco, Patient uses alcohol, patient/guardian reports recent binge of alcohol consumption. - Ebola Screening: : No symptoms or risks identified at this time. Screenin:00 Abuse screen: Denies threats or abuse. Nutritional screening: No deficits noted. jb4 Tuberculosis screening: No symptoms or risk factors identified. Fall Risk None identified. Assessment: 00:55 Reassessment: No changes from previously documented assessment. see triage assessment. bb spoke to Poison Control who recommends giving pt charcoal and then doing the usual toxic lab screening with 4 hour follow-up. Pt should have EKG and cardiac monitoring with 6 hour monitoring. 01:00 General: Appears in no apparent distress. comfortable, Behavior is calm, cooperative, jb4 appropriate for age. Pain: Denies pain. Neuro: Level of Consciousness is awake, alert, obeys commands, Oriented to person, place, time, situation. Cardiovascular: Patient's skin is warm and dry. Rhythm is sinus rhythm. Respiratory: Airway is patent Respiratory effort is even, unlabored, Respiratory pattern is regular, symmetrical. GI: No signs and/or symptoms were reported involving the gastrointestinal system. : No signs and/or symptoms were reported regarding the genitourinary system. EENT: No signs and/or symptoms were reported regarding the EENT system. Derm: Skin is intact, Skin is pink, warm \\T\\ dry. Musculoskeletal: Circulation, motion, and sensation intact. 02:00 Reassessment: Patient appears in no apparent distress at this time. Patient and/or jb4 family updated on plan of care and expected duration. Pain level reassessed. Patient is alert, oriented x 3, equal unlabored respirations, skin warm/dry/pink. 03:00 Reassessment: Patient appears in no apparent distress at this time. Patient and/or jb4 family updated on plan of care and expected duration. Pain level reassessed. Patient is alert, oriented x 3, equal unlabored respirations, skin warm/dry/pink. 04:00 Reassessment: Patient appears in no apparent distress at this time. Patient and/or jb4 family updated on plan of care and expected duration. Pain level reassessed. Patient is alert, oriented x 3, equal unlabored respirations, skin warm/dry/pink. 05:26 Reassessment: Patient appears in no apparent distress at this time. Patient is alert, lp1 oriented x 3, equal unlabored respirations, skin warm/dry/pink. Neuro: Gait is steady, Speech is normal, Pupils are PERRLA. Vital Signs: 00:47 BP 138 / 89; Pulse 121; Resp 16 S; Temp 99.1(O); Pulse Ox 99% on R/A; Weight 81.65 kg bb (R); Height 5 ft. 4 in. (162.56 cm) (R); Pain 0/10; 02:13 BP 112 / 56; Pulse 99; Resp 16; Pulse Ox 99% on R/A; jb4 03:30 BP 102 / 56; Pulse 90; Resp 16; Pulse Ox 98% on R/A; jb4 04:00 BP 108 / 65; Pulse 104; Resp 18; Pulse Ox 100% on R/A; lp1 04:52 BP 111 / 57; Pulse 100; Resp 16; Temp 98.8(O); Pain 0/10; lp1 00:47 Body Mass Index 30.90 (81.65 kg, 162.56 cm) bb ED Course: 00:25 Patient arrived in ED. es 00:46 Triage completed. bb 00:47 Arm band placed on Patient placed in an exam room, on a stretcher, on pulse oximetry. bb 01:00 Patient has correct armband on for positive identification. Placed in gown. Bed in low jb4 position. Call light in reach. Side rails up X 1. Pulse ox on. NIBP on. 01:01 Theodore Woods, JUAN M is Primary Nurse. jb4 01:10 Missed attempt(s): 22 gauge in left antecubital area. Bleeding controlled, band aid jb4 applied, catheter tip intact. 01:23 Josiah Monae MD is Attending Physician. gs 01:47 Inserted saline lock: 22 gauge in right antecubital area, using aseptic technique. ar5 Blood collected. 04:52 No provider procedures requiring assistance completed. lp1 05:27 IV discontinued, No redness/swelling at site. Pressure dressing applied. lp1 Administered Medications: No medications were administered Outcome: 05:21 Discharge ordered by . shweta 05:27 Discharged to home ambulatory, with friend. lp1 05:27 Condition: good 05:27 Discharge instructions given to patient, Instructed on discharge instructions, follow up and referral plans. Demonstrated understanding of instructions, follow-up care. 05:27 Patient left the ED. lp1 Signatures: Fannie Borrero Brenda, RN RN bb Sallie Barkley RN RN lp1 Theodore Woods RN RN jb4 Josiah Monae MD MD gs Robles, Autumn ar5
--- NOTE | 2018-07-15 05:22 | EDPHYS ---
Physician Documentation [facility] Name: Mile Wang Age: 23 yrs Sex: Female : 1995 Arrival Date: 07/15/2018 Time: 00:25 Bed 16 Private MD: ED Physician Josiah Monae HPI: 07/15 05:59 This 23 yrs old Female presents to ER via Ambulatory with complaints of Will gs talk to nurse. 05:59 The patient presents to the emergency department after a known overdose, that was gs accidental. Context: Method: the patient has a confirmed or suspected ingestion, benadryl, wanted to sleep said took too much was drinking heavily not suicidal. Associated signs and symptoms: Pertinent negatives: decreased level of consciousness, palpitations, visual hallucinations. Severity of symptoms: At their worst the symptoms were moderate in the emergency department the symptoms are unchanged. The patient has experienced similar episodes in the past, a few times. 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 - Social history:: Smoking status: Patient/guardian denies using tobacco, Patient uses alcohol, patient/guardian reports recent binge of alcohol consumption. - Ebola Screening: : No symptoms or risks identified at this time. ROS: 05:59 All other systems are negative. gs Exam: 05:59 Head/Face: Normocephalic, atraumatic. Eyes: Pupils equal round and reactive to light, gs extra-ocular motions intact. Lids and lashes normal. Conjunctiva and sclera are non-icteric and not injected. Cornea within normal limits. Periorbital areas with no swelling, redness, or edema. ENT: Nares patent. No nasal discharge, no septal abnormalities noted. Tympanic membranes are normal and external auditory canals are clear. Oropharynx with no redness, swelling, or masses, exudates, or evidence of obstruction, uvula midline. Mucous membranes moist. Neck: Trachea midline, no thyromegaly or masses palpated, and no cervical lymphadenopathy. Supple, full range of motion without nuchal rigidity, or vertebral point tenderness. No Meningismus. Chest/axilla: Normal chest wall appearance and motion. Nontender with no deformity. No lesions are appreciated. Respiratory: Lungs have equal breath sounds bilaterally, clear to auscultation and percussion. No rales, rhonchi or wheezes noted. No increased work of breathing, no retractions or nasal flaring. Abdomen/GI: Soft, non-tender, with normal bowel sounds. No distension or tympany. No guarding or rebound. No evidence of tenderness throughout. Back: No spinal tenderness. No costovertebral tenderness. Full range of motion. Skin: Warm, dry with normal turgor. Normal color with no rashes, no lesions, and no evidence of cellulitis. MS/ Extremity: Pulses equal, no cyanosis. Neurovascular intact. Full, normal range of motion. Neuro: Awake and alert, GCS 15, oriented to person, place, time, and situation. Cranial nerves II-XII grossly intact. Motor strength 5/5 in all extremities. Sensory grossly intact. Cerebellar exam normal. Normal gait. 05:59 Constitutional: The patient appears alert, awake. 05:59 Cardiovascular: Rate: tachycardic, Rhythm: regular, Pulses: no pulse deficits are appreciated. 05:59 ECG was reviewed by the Attending Physician. Vital Signs: 00:47 BP 138 / 89; Pulse 121; Resp 16 S; Temp 99.1(O); Pulse Ox 99% on R/A; Weight 81.65 kg bb (R); Height 5 ft. 4 in. (162.56 cm) (R); Pain 0/10; 02:13 BP 112 / 56; Pulse 99; Resp 16; Pulse Ox 99% on R/A; jb4 03:30 BP 102 / 56; Pulse 90; Resp 16; Pulse Ox 98% on R/A; jb4 04:00 BP 108 / 65; Pulse 104; Resp 18; Pulse Ox 100% on R/A; lp1 04:52 BP 111 / 57; Pulse 100; Resp 16; Temp 98.8(O); Pain 0/10; lp1 00:47 Body Mass Index 30.90 (81.65 kg, 162.56 cm) MDM: 01:33 Patient medically screened. 05:59 Differential diagnosis: polypharmacy, over medication. Data reviewed: vital signs, gs nurses notes, lab test result(s), EKG. Counseling: I had a detailed discussion with the patient and/or guardian regarding: the historical points, exam findings, and any diagnostic results supporting the discharge/admit diagnosis, the need for outpatient follow up. Response to treatment: the patient's symptoms have markedly improved after treatment, the patient's condition has returned to base line. 07/15 00:59 Order name: Acetaminophen lp1 07/15 00:59 Order name: Basic Metabolic Panel lp1 07/15 00:59 Order name: CBC with Diff lp1 07/15 00:59 Order name: ETOH Level lp1 07/15 00:59 Order name: Hepatic Function lp1 07/15 00:59 Order name: PT-INR lp1 07/15 00:59 Order name: Ptt, Activated; Complete Time: 05:16 lp1 07/15 00:59 Order name: Salicylate; Complete Time: 05:16 lp1 07/15 00:59 Order name: Urine Drug Screen; Complete Time: 05:16 lp1 07/15 01:01 Order name: Acetaminophen Level; Complete Time: 05:16 EDMS 07/15 01:01 Order name: Basic Metabolic Panel; Complete Time: 05:16 EDMS 07/15 01:01 Order name: CBC with Automated Diff; Complete Time: 05:16 EDMS 07/15 01:02 Order name: Alcohol Serum/Plasma; Complete Time: 05:16 EDMS 07/15 01:02 Order name: Liver (Hepatic) Function; Complete Time: 05:16 EDMS 07/15 00:59 Order name: EKG; Complete Time: 01:02 lp1 07/15 00:59 Order name: EKG - Nurse/Tech; Complete Time: 01:47 lp1 07/15 00:59 Order name: IV Saline Lock; Complete Time: 01:47 lp1 07/15 00:59 Order name: Labs collected and sent; Complete Time: 01:47 lp1 07/15 00:59 Order name: Urine Dipstick-Ancillary (obtain specimen); Complete Time: 01:47 lp1 07/15 01:02 Order name: Protime (+INR); Complete Time: 05:16 EDMS 07/15 01:31 Order name: Urine Dipstick--Ancillary (enter results); Complete Time: 05:16 mw2 07/15 01:31 Order name: Urine --Ancillary (enter results); Complete Time: 05:16 mw2 EC:59 Rate is 105 beats/min. Rhythm is regular. CO interval is normal. QRS interval is gs normal. T waves are Normal. No ST changes noted. Clinical impression: Abnormal EKG without significant change. Interpreted by me. Administered Medications: No medications were administered Disposition: 07/15/18 05:21 Discharged to Home. Impression: Poisoning by other parasympatholytics [anticholinergics and antimuscarinics] and spasmolytics, accidental (unintentional). - Condition is Stable. - Discharge Instructions: Accidental Overdose. - Medication Reconciliation Form, Thank You Letter, Antibiotic Education, Prescription Opioid Use form. - Follow up: Private Physician; When: 1 - 2 days; Reason: Re-evaluation by your physician. Signatures: Dispatcher [employer] EDRadha Joyner RN RN bb Sallie Barkley RN RN lp1 Josiah Monae MD MD Corrections: (The following items were deleted from the chart) 05:27 05:21 07/15/2018 05:21 Discharged to Home. Impression: Poisoning by other lp1 parasympatholytics [anticholinergics and antimuscarinics] and spasmolytics, accidental (unintentional). Condition is Stable. Forms are Medication Reconciliation Form, Thank You Letter, Antibiotic Education, Prescription Opioid Use. Follow up: Private Physician; When: 1 - 2 days; Reason: Re-evaluation by your physician. gs
[2018-07-15 05:35] VITALS: O2SAT 100
[2018-07-15 05:37] VITALS: BP 111/57; TEMP 98.8
--- NOTE | 2018-07-15 06:52 | EKG ---
Test Date: 2018-07-15 Test Time: 01:21:19 Folder Inspector: RADHA MEASUREMENT RESULTS: Intervals: Rate: 105 SC: 166 QRSD: 78 QT: 350 QTc: 462 [place]: P: 48 SC: 166 QRS: 88 T: 35 INTERPRETIVE STATEMENTS: Sinus tachycardia Otherwise normal ECG Compared to ECG 11/26/2016 21:04:40 No significant changes Electronically Signed On 07-15-18 06:51:30 CDT by Ameya Devine
== END 2018-07-15 05:27 | disposition home or self-care (01) ==
LOC: ER 00:21
DX: T44.3X1A Poisoning by other parasympatholytics [anticholinergics and antimuscarinics] and spasmolytics, accidental (unintentional), initial encounter (principal); F31.9 Bipolar disorder, unspecified; F41.9 Anxiety disorder, unspecified; Z88.1 Allergy status to other antibiotic agents; Z88.5 Allergy status to narcotic agent
CPT/HCPCS: 36415; 80048; 80076; 80307; 80320; 80329; 81003; 81025; 85025; 85610; 85730; 93005; 99284

== ENCOUNTER 2018-07-20 04:32 | Emergency (ER) | payer OTHER ==
--- OUTSIDE RECORDS SUMMARY | 2018-07-20 04:34 | XMS REPORT ---
:1995 [facility] Address [address] [place] [address] [address]. [address] [place] [address] Care Team Providers Name Role Phone Unavailable Unavailable Unavailable Problems This patient has no known problems. Allergies, Adverse Reactions, Alerts This patient has no known allergies or adverse reactions. Medications This patient has no known medications.
--- NOTE | 2018-07-20 05:23 | EDPHYS ---
Physician Documentation [facility] Name: Mile Wang Age: 23 yrs Sex: Female : 1995 Arrival Date: 07/20/2018 Time: 04:36 Bed 2 Private MD: Eddie Rosas T ED Physician Luis Ceron HPI: 07/20 06:57 This 23 yrs old Female presents to ER via Ambulatory with complaints of Back tw4 Pain. 06:57 The patient presents with pain that is acute. The symptoms are located in the right mid tw4 back. Onset: The symptoms/episode began/occurred yesterday. The pain does not radiate. The patient has not experienced similar symptoms in the past. 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 - Social history:: Smoking status: Patient/guardian denies using tobacco. - Ebola Screening: : No symptoms or risks identified at this time. ROS: 06:57 Constitutional: Negative for fever, chills, and weight loss, Eyes: Negative for injury, tw4 pain, redness, and discharge. 06:57 Back: Positive for pain with movement. 06:57 Skin: Positive for cellulitis. Exam: 06:57 Constitutional: This is a well developed, well nourished patient who is awake, alert, tw4 and in no acute distress. Head/Face: Normocephalic, atraumatic. Chest/axilla: Normal chest wall appearance and motion. Nontender with no deformity. No lesions are appreciated. Cardiovascular: Regular rate and rhythm with a normal S1 and S2. No gallops, murmurs, or rubs. Normal PMI, no JVD. No pulse deficits. Respiratory: Lungs have equal breath sounds bilaterally, clear to auscultation and percussion. No rales, rhonchi or wheezes noted. No increased work of breathing, no retractions or nasal flaring. Abdomen/GI: Soft, non-tender, with normal bowel sounds. No distension or tympany. No guarding or rebound. No evidence of tenderness throughout. MS/ Extremity: Pulses equal, no cyanosis. Neurovascular intact. Full, normal range of motion. 06:57 Skin: cellulitis, that is minimal. Vital Signs: 04:55 BP 127 / 77; Pulse 104; Resp 20; Temp 98.7(O); Pulse Ox 99% on R/A; Weight 81.19 kg; tl2 Height 5 ft. 4 in. (162.56 cm); Pain 10/10; 04:55 Body Mass Index 30.72 (81.19 kg, 162.56 cm) tl2 MDM: 04:43 Patient medically screened. tw4 05:22 Data reviewed: vital signs, nurses notes. Medical screen evaluation completed. EMTALA tw4 emergency medical condition absent. Special discussion: I discussed with the patient/guardian in detail that at this point there is no indication for admission to the hospital. It is understood, however, that if the symptoms persist or worsen the patient needs to return immediately for re-evaluation. 06:57 Differential diagnosis: Joint Injury cellulitis. Counseling: I had a detailed tw4 discussion with the patient and/or guardian regarding: the historical points, exam findings, and any diagnostic results supporting the discharge/admit diagnosis. Administered Medications: No medications were administered Disposition: 05:22 [facility] [place]. tw4 Disposition: 07/20/18 05:23 Discharged to Home. Impression: Cellulitis of chest wall. - Condition is Stable. - Discharge Instructions: Cellulitis, Adult. - Medication Reconciliation Form, Thank You Letter, Antibiotic Education, Prescription Opioid Use form. - Follow up: Eddie Rosas MD; When: Upon discharge from the Emergency Department; Reason: If symptoms return, Recheck today's complaints, Continuance of care. - Problem is new. - Symptoms are unchanged. Signatures: Glory Dawkins RN RN tl2 Luis Ceron MD MD tw4 Corrections: (The following items were deleted from the chart) 05:24 05:23 07/20/2018 05:23 Discharged to Home. Impression: Cellulitis of chest wall. tl2 Condition is Stable. Forms are Medication Reconciliation Form, Thank You Letter, Antibiotic Education, Prescription Opioid Use. Follow up: Eddie Rosas; When: Upon discharge from the Emergency Department; Reason: If symptoms return, Recheck today's complaints, Continuance of care. Problem is new. Symptoms are unchanged. tw4
--- NOTE | 2018-07-20 05:23 | ER ---
Nurse's Notes [facility] Name: Mile Wang Age: 23 yrs Sex: Female : 1995 Arrival Date: 07/20/2018 Time: 04:36 Bed 2 Private MD: Eddie Rosas T Diagnosis: Cellulitis of chest wall Presentation: 07/20 04:48 Presenting complaint: Patient states: small abscess on the right upper back, about the tl2 size of a dime. No drainage noted. Transition of care: patient was not received from another setting of care. Onset of symptoms was July 19, 2018. Risk Assessment: Do you want to hurt yourself or someone else? Patient reports no desire to harm self or others. Initial Sepsis Screen: Does the patient meet any 2 criteria? No. Patient's initial sepsis screen is negative. Does the patient have a suspected source of infection? No. Patient's initial sepsis screen is negative. Care prior to arrival: None. 04:48 Method Of Arrival: Ambulatory tl2 04:48 Acuity: BAIRON 4 tl2 Triage Assessment: 04:55 General: Appears in no apparent distress. uncomfortable, Behavior is anxious, crying. tl2 Pain: Complains of pain in right subscapular area. Neuro: Level of Consciousness is awake, alert, obeys commands, Oriented to person, place, time, situation. Cardiovascular: Denies chest pain. Respiratory: Airway is patent Respiratory effort is even, unlabored, Respiratory pattern is regular, symmetrical. Derm: Skin is pink, warm \T\ dry. Abscess located on right subscapular area is dime sized, has no drainage, is red, is raised. Musculoskeletal: Circulation, motion, and sensation intact. 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 - Social history:: Smoking status: Patient/guardian denies using tobacco. - Ebola Screening: : No symptoms or risks identified at this time. Screenin:59 Abuse screen: Denies threats or abuse. Nutritional screening: No deficits noted. tl2 Tuberculosis screening: No symptoms or risk factors identified. Fall Risk None identified. Assessment: 04:55 General: see triage assessment. tl2 05:13 Reassessment: Explained to patient about Medical Screen and need to follow up with PCP. tl2 Vital Signs: 04:55 BP 127 / 77; Pulse 104; Resp 20; Temp 98.7(O); Pulse Ox 99% on R/A; Weight 81.19 kg; tl2 Height 5 ft. 4 in. (162.56 cm); Pain 10/10; 04:55 Body Mass Index 30.72 (81.19 kg, 162.56 cm) tl2 ED Course: 04:36 Patient arrived in ED. es 04:36 Eddie Rosas MD is Private Physician. es 04:43 Luis Ceron MD is Attending Physician. tw4 04:54 Triage completed. tl2 04:55 Arm band placed on right wrist. tl2 04:55 No provider procedures requiring assistance completed. Patient did not have IV access tl2 during this emergency room visit. 04:59 Patient has correct armband on for positive identification. Bed in low position. Call tl2 light in reach. Side rails up X 1. 05:22 Eddie Rosas MD is Referral Physician. tw4 05:24 Glory Dawkins RN is Primary Nurse. tl2 Administered Medications: No medications were administered Outcome: 04:55 Medical screen evaluation completed per provider. Patient declined treatment. tl2 04:55 Condition: stable 04:55 Discharge instructions given to patient, Instructed on follow up and referral plans. 05:23 Discharge ordered by . tw4 05:24 Patient left the ED. tl2 Signatures: Fannie Borrero Taylor, RN RN tl2 Luis Ceron MD MD tw4 Corrections: (The following items were deleted from the chart) 05:14 05:13 General: see triage assessment. tl2 tl2
[2018-07-20 13:27] VITALS: BP 127/77; TEMP 98.7; O2SAT 99
== END 2018-07-20 05:24 | disposition home or self-care (01) ==
LOC: ER 04:32
DX: L03.313 Cellulitis of chest wall (principal); F41.9 Anxiety disorder, unspecified; F31.9 Bipolar disorder, unspecified; Z88.1 Allergy status to other antibiotic agents; Z88.5 Allergy status to narcotic agent
CPT/HCPCS: 99281

== ENCOUNTER 2018-07-21 22:34 | Emergency (ER) | payer OTHER ==
--- OUTSIDE RECORDS SUMMARY | 2018-07-21 22:36 | XMS REPORT ---
:1995 [facility] Address [address] [place] [address] [address] [place] [address] Care Team Providers Name Role Phone Unavailable Unavailable Unavailable Problems This patient has no known problems. Allergies, Adverse Reactions, Alerts This patient has no known allergies or adverse reactions. Medications This patient has no known medications.
[2018-07-21 23:57] LABS: Urine Blood NEGATIVE (NEG); Urine Glucose NEGATIVE (NEG); Urine Protein NEGATIVE (NEG)
[2018-07-22] MEDS ORDERED: IBUPROFEN 400 MG TAB ONE (00:47)
[2018-07-22] MEDS ORDERED: ACETAMINOPHEN 500 MG TAB ONE (00:47)
[2018-07-22] MEDS ORDERED: IBUPROFEN 200 MG TAB PO ONE (00:48)
[2018-07-22] MEDS ORDERED: LIDOCAINE 1% MPF 5 ML VIAL ONE (01:24)
--- NOTE | 2018-07-22 01:26 | EDPHYS ---
Physician Documentation [facility] Name: Mile Wang Age: 23 yrs Sex: Female : 1995 Arrival Date: 07/21/2018 Time: 22:35 Bed 11 Private MD: Eddie Rosas T ED Physician Cheo Maddox HPI: 07/22 08:39 This 23 yrs old Female presents to ER via Ambulatory with complaints of wa Abscess. 08:39 The patient presents with an abscess of the right mid back, The patient presents with wa cellulitis of the right mid back. Description: The affected area is moderate sized, irregular, localized, erythematous, fluctuant, swollen, tense, warm. Onset: The symptoms/episode began/occurred 1 week(s) ago. Possible cause(s): unknown. Associated signs and symptoms: Pertinent positives: erythema, swelling, Pertinent negatives: fever. Modifying factors: the symptoms are alleviated by nothing, the symptoms are aggravated by pressure, squeezing the lesion and expressing the contents, touching. Severity of symptoms: At their worst the symptoms were moderate, in the emergency department the symptoms are actually worse, moderately. The patient has experienced similar episodes in the past, a few times, but not this bad. The patient has not recently seen a physician. 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 - Social history:: Smoking status: Patient/guardian denies using tobacco, Patient/guardian denies using alcohol, street drugs. - Ebola Screening: : Patient negative for fever greater than or equal to 101.5 degrees Fahrenheit, and additional compatible Ebola Virus Disease symptoms Patient denies exposure to infectious person Patient denies travel to an Ebola-affected area in the 21 days before illness onset. - Family history:: not pertinent. - Hospitalizations: : No recent hospitalization is reported. ROS: 07/22 08:40 Constitutional: Negative for fever, chills, and weight loss, Eyes: Negative for injury, wa pain, redness, and discharge, ENT: Negative for injury, pain, and discharge, Neck: Negative for injury, pain, and swelling, Cardiovascular: Negative for chest pain, palpitations, and edema, Respiratory: Negative for shortness of breath, cough, wheezing, and pleuritic chest pain, Abdomen/GI: Negative for abdominal pain, nausea, vomiting, diarrhea, and constipation, Back: Negative for injury and pain, : Negative for injury, bleeding, discharge, and swelling, MS/Extremity: Negative for injury and deformity, Neuro: Negative for headache, weakness, numbness, tingling, and seizure, Psych: Negative for depression, anxiety, suicide ideation, homicidal ideation, and hallucinations. Skin: Positive for abscess, cellulitis, of the right mid back. Exam: 08:40 Constitutional: This is a well developed, well nourished patient who is awake, alert, wa and in no acute distress. Head/Face: Normocephalic, atraumatic. Eyes: Pupils equal round and reactive to light, extra-ocular motions intact. Lids and lashes normal. Conjunctiva and sclera are non-icteric and not injected. Cornea within normal limits. Periorbital areas with no swelling, redness, or edema. ENT: Nares patent. No nasal discharge, no septal abnormalities noted. Tympanic membranes are normal and external auditory canals are clear. Oropharynx with no redness, swelling, or masses, exudates, or evidence of obstruction, uvula midline. Mucous membranes moist. Neck: Trachea midline, no thyromegaly or masses palpated, and no cervical lymphadenopathy. Supple, full range of motion without nuchal rigidity, or vertebral point tenderness. No Meningismus. Chest/axilla: Normal chest wall appearance and motion. Nontender with no deformity. No lesions are appreciated. Cardiovascular: Regular rate and rhythm with a normal S1 and S2. No gallops, murmurs, or rubs. Normal PMI, no JVD. No pulse deficits. Respiratory: Lungs have equal breath sounds bilaterally, clear to auscultation and percussion. No rales, rhonchi or wheezes noted. No increased work of breathing, no retractions or nasal flaring. Abdomen/GI: Soft, non-tender, with normal bowel sounds. No distension or tympany. No guarding or rebound. No evidence of tenderness throughout. MS/ Extremity: Pulses equal, no cyanosis. Neurovascular intact. Full, normal range of motion. Neuro: Awake and alert, GCS 15, oriented to person, place, time, and situation. Cranial nerves II-XII grossly intact. Motor strength 5/5 in all extremities. Sensory grossly intact. Cerebellar exam normal. Normal gait. 08:40 Back: pain, that is moderate, of the right mid back. 08:40 Skin: abscess, cellulitis, that is moderate, on the right mid back. Vital Signs: 07/21 23:16 BP 119 / 61; Pulse 86; Resp 20; Temp 99.0(O); Pulse Ox 99% on R/A; Weight 81.19 kg (R); fc Height 5 ft. 4 in. (162.56 cm) (R); Pain 8/10; 23:16 Body Mass Index 30.72 (81.19 kg, 162.56 cm) Procedures: 07/22 08:41 I \T\ D: Incision and drainage was performed for an abscess of the right right mid back wa Prepped with Betadine, Anesthetized with 3 ml's 2% Lidocaine. Incised with #11 blade. Drained moderate amount purulent fluid. Packed with iodoform gauze, Dressing: sterile 4x4 gauze, the patient tolerated the procedure well. MDM: 00:12 Patient medically screened. wa 08:42 Differential diagnosis: abscess, cellulitis. Data reviewed: vital signs, nurses notes. nm Test interpretation: by ED physician or midlevel provider: labs noted wnl. 07/21 23:52 Order name: Urine Dipstick--Ancillary (enter results); Complete Time: 00:27 [facility] 07/21 23:52 Order name: Urine --Ancillary (enter results) [facility] 07/22 00:31 Order name: I\T\D Setup; Complete Time: 01:42 wa Administered Medications: 00:50 Drug: Motrin 600 mg Route: PO; eb1 00:51 Drug: Tylenol 1000 mg Route: PO; eb1 01:43 Follow up: Response: No adverse reaction eb1 01:44 Follow up: Response: No adverse reaction eb1 Disposition: 07/22/18 01:24 Discharged to Home. Impression: cutaneous abscess Left back . - Condition is Stable. - Prescriptions for Keflex 500 mg Oral Capsule - take 1 capsule by ORAL route every 8 hours for 7 days; 21 capsule. Bactrim DS 800- 160 mg Oral Tablet - take 1 tablet by ORAL route every 12 hours for 7 days; 14 tablet. Ibuprofen 600 mg Oral Tablet - take 1 tablet by ORAL route every 8 hours As needed take with food; 30 tablet. - Medication Reconciliation Form, Thank You Letter, Antibiotic Education, Prescription Opioid Use form. - Follow up: Private Physician; When: 2 - 3 days; Reason: Recheck today's complaints. - Problem is new. - Symptoms have improved. - Notes: take antibiotics as prescribed. pull out iodoform packing in 48 hours Signatures: Dispatcher [employer] EDMS Sheridan Cruz RN RN Cheo Maddox MD MD wa Basinger, Emily, RN RN eb1 Corrections: (The following items were deleted from the chart) 01:45 01:24 07/22/2018 01:24 Discharged to Home. Impression: cutaneous abscess Left back . eb1 Condition is Stable. Forms are Medication Reconciliation Form, Thank You Letter, Antibiotic Education, Prescription Opioid Use. Follow up: Private Physician; When: 2 - 3 days; Reason: Recheck today's complaints. Problem is new. Symptoms have improved. janny
--- NOTE | 2018-07-22 01:26 | ER ---
Nurse's Notes [facility] Name: Mile Wang Age: 23 yrs Sex: Female : 1995 Arrival Date: 07/21/2018 Time: 22:35 Bed 11 Private MD: Eddie Rosas T Diagnosis: cutaneous abscess Left back Presentation: 07/21 23:12 Presenting complaint: Patient states: that she has an abscess to right middle back. Was fc seen here a couple of days ago and medical screened. Area continues to hurt and she is unable to use warm compresses and it is not getting better. Transition of care: patient was not received from another setting of care. Onset of symptoms was July 14, 2018. Risk Assessment: Do you want to hurt yourself or someone else? Patient reports no desire to harm self or others. Initial Sepsis Screen: Does the patient meet any 2 criteria? No. Patient's initial sepsis screen is negative. Does the patient have a suspected source of infection? No. Patient's initial sepsis screen is negative. Care prior to arrival: warm compresses and hot bathes. 23:12 Method Of Arrival: Ambulatory fc 23:12 Acuity: BAIRON 4 fc Triage Assessment: 23:16 General: Appears in no apparent distress. comfortable, obese, Behavior is calm, fc cooperative, appropriate for age. Pain: Complains of pain in right subscapular area Pain currently is 8 out of 10 on a pain scale. at worst was 10 out of 10 on a pain scale. Quality of pain is described as aching, throbbing, Pain began gradually, Is continuous, Aggravated by palpation. EENT: No deficits noted. Neuro: Level of Consciousness is awake, alert, obeys commands, Oriented to person, place, time, situation, Appropriate for age. Cardiovascular: No deficits noted. Respiratory: No deficits noted. GI: No deficits noted. : No deficits noted. Derm: Skin is pink, warm \T\ dry. Abscess located on right subscapular area is quarter sized, has purulent drainage, is hot to touch, is red, is raised, was lanced by patient prior to arrival, Reports pain. Musculoskeletal: Circulation, motion, and sensation intact. Capillary refill < 3 seconds, Range of motion: intact in all extremities. FORM [employer] [address] [address] FORMS: 23:15 LMP 07/08/2018 fc Historical: - Allergies: 23:15 Doxycycline; fc 23:15 tramadol; fc - Home Meds: 23:15 None [Active]; fc - PMHx: 23:15 Anxiety; Bipolar disorder; Psychogenic Seizures; fc - PSHx: 23:15 None; fc - Immunization history:: Last tetanus immunization: unknown. - Social history:: Smoking status: Patient/guardian denies using tobacco, Patient/guardian denies using alcohol, street drugs. - Ebola Screening: : Patient negative for fever greater than or equal to 101.5 degrees Fahrenheit, and additional compatible Ebola Virus Disease symptoms Patient denies exposure to infectious person Patient denies travel to an Ebola-affected area in the 21 days before illness onset. - Family history:: not pertinent. - Hospitalizations: : No recent hospitalization is reported. Screenin/16 00:03 Abuse screen: Denies threats or abuse. Denies injuries from another. Nutritional eb1 screening: No deficits noted. Tuberculosis screening: No symptoms or risk factors identified. Fall Risk None identified. Assessment: 07/21 23:59 General: Appears in no apparent distress. uncomfortable, well groomed, well developed, eb1 well nourished, Behavior is calm, cooperative, appropriate for age, Denies fever. General: Patient states they noticed an abscess on their back x1 week ago. Patient reports that they tried to squeeze it, use warm compress and get it to drain but only a small amount of dark pus was able to come out. . Pain: Complains of pain in right mid back Pain currently is 8 out of 10 on a pain scale. at worst was 10 out of 10 on a pain scale. Quality of pain is described as pressure, sharp, Alleviated by rest, Aggravated by increased activity. Neuro: No deficits noted. Cardiovascular: No deficits noted. Respiratory: No deficits noted. GI: No deficits noted. : No deficits noted. No signs and/or symptoms were reported regarding the genitourinary system. EENT: No deficits noted. No signs and/or symptoms were reported regarding the EENT system. Derm: Abscess located on right mid back has no drainage, is hot to touch, is red. Musculoskeletal: No deficits noted. No signs and/or symptoms reported regarding the musculoskeletal system. Vital Signs: 23:16 BP 119 / 61; Pulse 86; Resp 20; Temp 99.0(O); Pulse Ox 99% on R/A; Weight 81.19 kg (R); fc Height 5 ft. 4 in. (162.56 cm) (R); Pain 8/10; 23:16 Body Mass Index 30.72 (81.19 kg, 162.56 cm) ED Course: 22:35 Patient arrived in ED. am2 22:35 Eddie Rosas MD is Private Physician. am2 23:14 Triage completed. 23:15 Arm band placed on Patient placed in waiting room, Patient notified of wait time. 07/22 00:09 No apparent distress. Awaiting ED provider evaluation. eb1 00:12 Cheo Maddox MD is Attending Physician. wa 01:41 Assist provider with I \T\ D: Set up I\T\D tray. Performed by Cheo Maddox MD Wound eb 1 packed. iodoform gauze, Dressing with 4X4s, Patient tolerated well. 01:42 Side rails up X2. eb1 01:42 Patient did not have IV access during this emergency room visit. eb1 Administered Medications: 00:50 Drug: Motrin 600 mg Route: PO; eb1 00:51 Drug: Tylenol 1000 mg Route: PO; eb1 01:43 Follow up: Response: No adverse reaction eb1 01:44 Follow up: Response: No adverse reaction eb1 Outcome: 01:24 Discharge ordered by . wa 01:41 Discharged to home ambulatory. eb1 01:41 Condition: good 01:41 Discharge instructions given to patient, Instructed on wound care, Demonstrated understanding of follow-up care, medications, wound care, Prescriptions given X 3. 01:45 Patient left the ED. eb1 Signatures: Sheridan Cruz, RN RN Candy Dao am2 Cheo Maddox MD MD wa Basinger, Emily RN RN eb1
[2018-07-22 06:22] VITALS: BP 119/61; TEMP 99; O2SAT 99
== END 2018-07-22 01:45 | disposition home or self-care (01) ==
LOC: ER 22:34
PROC: 0J970ZZ Drainage of Back Subcutaneous Tissue and Fascia, Open Approach (ICD-10-PCS; principal; 2018-07-22)
DX: L02.212 Cutaneous abscess of back [any part, except buttock and flank] (principal); Z88.3 Allergy status to other anti-infective agents; Z88.6 Allergy status to analgesic agent
CPT/HCPCS: 81003; 81025; 99283

== ENCOUNTER 2018-07-25 16:42 | Emergency (ER) | payer OTHER ==
--- OUTSIDE RECORDS SUMMARY | 2018-07-25 16:44 | XMS REPORT ---
:1995 [facility] Address [address] [place] [address] [address] [place] [address] Care Team Providers Name Role Phone Unavailable Unavailable Unavailable Problems This patient has no known problems. Allergies, Adverse Reactions, Alerts This patient has no known allergies or adverse reactions. Medications This patient has no known medications.
--- NOTE | 2018-07-25 17:03 | EDPHYS ---
Physician Documentation [facility] Name: Mile Wang Age: 23 yrs Sex: Female : 1995 Arrival Date: 07/25/2018 Time: 16:46 Bed 6 Private MD: ED Physician Josiah Monae HPI: 07/25 16:59 This 23 yrs old Female presents to ER via EMS with complaints of Seizure. gs 16:59 The patient presents after having a single isolated seizure. Character of seizure(s): gs Incontinence: none. Seizure onset: just prior to arrival. Seizure Hx: Usual frequency: roughly every 2 week(s). Associated injury: The patient did not suffer any apparent associated injury. Current symptoms: Currently, the patient is not experiencing any symptoms, the patient feels back to baseline. The patient has experienced similar episodes in the past, chronically. Historical: - Allergies: 16:52 Doxycycline; sv 16:52 tramadol; sv - PMHx: 16:52 Anxiety; Bipolar disorder; Psychogenic Seizures; sv - PSHx: 16:52 None; sv - Immunization history:: Adult Immunizations up to date. - Social history:: Smoking status: Patient/guardian denies using tobacco, Patient/guardian denies using alcohol, street drugs. - Ebola Screening: : No symptoms or risks identified at this time. ROS: 16:59 All other systems are negative. gs Exam: 16:59 Head/Face: Normocephalic, atraumatic. Eyes: Pupils equal round and reactive to light, gs extra-ocular motions intact. Lids and lashes normal. Conjunctiva and sclera are non-icteric and not injected. Cornea within normal limits. Periorbital areas with no swelling, redness, or edema. ENT: Nares patent. No nasal discharge, no septal abnormalities noted. Tympanic membranes are normal and external auditory canals are clear. Oropharynx with no redness, swelling, or masses, exudates, or evidence of obstruction, uvula midline. Mucous membranes moist. Neck: Trachea midline, no thyromegaly or masses palpated, and no cervical lymphadenopathy. Supple, full range of motion without nuchal rigidity, or vertebral point tenderness. No Meningismus. Chest/axilla: Normal chest wall appearance and motion. Nontender with no deformity. No lesions are appreciated. Cardiovascular: Regular rate and rhythm with a normal S1 and S2. No gallops, murmurs, or rubs. Normal PMI, no JVD. No pulse deficits. Respiratory: Lungs have equal breath sounds bilaterally, clear to auscultation and percussion. No rales, rhonchi or wheezes noted. No increased work of breathing, no retractions or nasal flaring. Abdomen/GI: Soft, non-tender, with normal bowel sounds. No distension or tympany. No guarding or rebound. No evidence of tenderness throughout. Back: No spinal tenderness. No costovertebral tenderness. Full range of motion. Skin: Warm, dry with normal turgor. Normal color with no rashes, no lesions, and no evidence of cellulitis. MS/ Extremity: Pulses equal, no cyanosis. Neurovascular intact. Full, normal range of motion. Neuro: Awake and alert, GCS 15, oriented to person, place, time, and situation. Cranial nerves II-XII grossly intact. Motor strength 5/5 in all extremities. Sensory grossly intact. Cerebellar exam normal. Normal gait. 16:59 Constitutional: The patient appears alert, awake. Vital Signs: 16:41 BP 126 / 76; Pulse 102; Resp 16; Temp 99.1; Pulse Ox 97% ; Weight 79.38 kg; Height 5 sv ft. 4 in. (162.56 cm); Pain 8/10; 17:17 BP 110 / 70; Pulse 93; Resp 18; Pulse Ox 99% ; sv 16:41 Body Mass Index 30.04 (79.38 kg, 162.56 cm) sv Capo Coma Score: 16:40 Eye Response: spontaneous(4). Verbal Response: oriented(5). Motor Response: obeys sv commands(6). Total: 15. MDM: 16:55 Patient medically screened. 16:59 Data reviewed: vital signs, nurses notes. Counseling: I had a detailed discussion with the patient and/or guardian regarding: the historical points, exam findings, and any diagnostic results supporting the discharge/admit diagnosis, the need for outpatient follow up. Administered Medications: No medications were administered Disposition: 07/25/18 17:02 Discharged to Home. Impression: Epilepsy and recurrent seizures. - Condition is Stable. - Work release form, Medication Reconciliation Form, Thank You Letter, Antibiotic Education, Prescription Opioid Use form. - Follow up: Private Physician; When: 1 - 2 days; Reason: Re-evaluation by your physician. - Notes: CONSIDER NEUROPSYCHIATRI[facility] DR LEVON WERNER [address] [place] [phone] Signatures: Nguyen Loya RN RN Josiah Temple MD MD gs Corrections: (The following items were deleted from the chart) 17:18 17:02 07/25/2018 17:02 Discharged to Home. Impression: Epilepsy and recurrent seizures. sv Condition is Stable. Forms are Medication Reconciliation Form, Thank You Letter, Antibiotic Education, Prescription Opioid Use. Follow up: Private Physician; When: 1 - 2 days; Reason: Re-evaluation by your physician. gs
--- NOTE | 2018-07-25 17:03 | ER ---
Nurse's Notes [facility] Name: Mile Wang Age: 23 yrs Sex: Female : 1995 Arrival Date: 07/25/2018 Time: 16:46 Bed 6 Private MD: Diagnosis: Epilepsy and recurrent seizures Presentation: 07/25 16:46 Presenting complaint: EMS states: witnessed seizure while at work coworker stated it sv lasted about 5 mins, coworker helped her to the floor, denies head injury. On EMS arrival pt was postictal, vitals WNL. Pt recently started Bactrim and Keflex for a back abscess 3 days ago. Transition of care: patient was not received from another setting of care. Onset of symptoms was July 25, 2018. Risk Assessment: Do you want to hurt yourself or someone else? Patient reports no desire to harm self or others. Initial Sepsis Screen: Does the patient meet any 2 criteria? No. Patient's initial sepsis screen is negative. Does the patient have a suspected source of infection? No. Patient's initial sepsis screen is negative. Care prior to arrival: IV initiated. 20 GA, in the right antecubital area. 16:46 Method Of Arrival: EMS: [facility] sv 16:46 Acuity: BAIRON 3 sv Triage Assessment: 16:40 General: Appears in no apparent distress. comfortable, well developed, Behavior is sv calm, cooperative, appropriate for age. Pain: Complains of pain in face and scalp Pain currently is 8 out of 10 on a pain scale. Is continuous. Neuro: Level of Consciousness is awake, alert, obeys commands, Oriented to person, place, time, situation, Moves all extremities. Full function Speech is normal, Reports headache. Respiratory: Airway is patent Respiratory effort is even, unlabored, Respiratory pattern is regular, symmetrical. Derm: Skin is pink, warm \T\ dry. Historical: - Allergies: 16:52 Doxycycline; sv 16:52 tramadol; sv - PMHx: 16:52 Anxiety; Bipolar disorder; Psychogenic Seizures; sv - PSHx: 16:52 None; sv - Immunization history:: Adult Immunizations up to date. - Social history:: Smoking status: Patient/guardian denies using tobacco, Patient/guardian denies using alcohol, street drugs. - Ebola Screening: : No symptoms or risks identified at this time. Screenin:52 Abuse screen: Denies threats or abuse. Denies injuries from another. Nutritional hb screening: No deficits noted. Tuberculosis screening: No symptoms or risk factors identified. Fall Risk Total Catalan Fall Scale indicates High Risk Score (45 or more points). Fall prevention measures have been instituted. Side Rails Up X 2 Frequent Obs/Assessments Occuring As available patient and family educated on Fall Prevention Program and Strategies. Assessment: 16:54 Reassessment: Patient appears in no apparent distress at this time. No changes from sv previously documented assessment. See triage assessment. 17:18 Reassessment: Patient appears in no apparent distress at this time. No changes from sv previously documented assessment. Patient and/or family updated on plan of care and expected duration. Pain level reassessed. Patient is alert, oriented x 3, equal unlabored respirations, skin warm/dry/pink. Vital Signs: 16:41 BP 126 / 76; Pulse 102; Resp 16; Temp 99.1; Pulse Ox 97% ; Weight 79.38 kg; Height 5 sv ft. 4 in. (162.56 cm); Pain 8/10; 17:17 BP 110 / 70; Pulse 93; Resp 18; Pulse Ox 99% ; sv 16:41 Body Mass Index 30.04 (79.38 kg, 162.56 cm) sv Hatton Coma Score: 16:40 Eye Response: spontaneous(4). Verbal Response: oriented(5). Motor Response: obeys sv commands(6). Total: 15. ED Course: 16:40 Maintain EMS IV. Dressing intact. Site clean \T\ dry. Gauge \T\ site: 20G R AC. sv 16:46 Patient arrived in ED. sv 16:46 Nguyen Loya RN is Primary Nurse. sv 16:49 Josiah Monae MD is Attending Physician. gs 16:51 Triage completed. sv 16:51 Arm band placed on. sv 16:52 Patient has correct armband on for positive identification. Bed in low position. Call hb light in reach. Side rails up X2. Seizure precautions initiated. 16:53 ED physician to see patient. sv 17:18 No provider procedures requiring assistance completed. IV discontinued, intact, sv bleeding controlled, No redness/swelling at site. Pressure dressing applied. Administered Medications: No medications were administered Outcome: 17:02 Discharge ordered by . gs 17:18 Discharged to home ambulatory. 17:18 Condition: stable 17:18 Discharge instructions given to patient, Instructed on discharge instructions, follow up and referral plans. Demonstrated understanding of instructions, follow-up care. 17:18 Patient left the ED. sv Signatures: Nguyen Loya RN RN sv Baxter, Heather, RN RN hb Starr, Gregory, MD MD gs
[2018-07-25 17:57] VITALS: BP 110/70; O2SAT 99
== END 2018-07-25 17:18 | disposition home or self-care (01) ==
LOC: ER 16:42
DX: G40.802 Other epilepsy, not intractable, without status epilepticus (principal); Z88.1 Allergy status to other antibiotic agents; Z88.5 Allergy status to narcotic agent
CPT/HCPCS: 99283

== ENCOUNTER 2018-07-27 11:26 | Emergency (ER) | payer OTHER ==
--- OUTSIDE RECORDS SUMMARY | 2018-07-27 11:28 | XMS REPORT ---
:1995 [facility] Address [address] [place] [address] [address] [place] [address] Care Team Providers Name Role Phone Unavailable Unavailable Unavailable Problems This patient has no known problems. Allergies, Adverse Reactions, Alerts This patient has no known allergies or adverse reactions. Medications This patient has no known medications.
[2018-07-27 12:03] LABS: Absolute Lymphocytes (CBC) 2.4 K/uL (0.7-4.9); Absolute Monocytes 0.4 K/uL (0.1-1.3); Absolute Neutrophil 2.2 K/uL (1.8-8.0); Basophils % 0.7 % (0-1.3); Eosinophils % 2.7 % (0-4.4); Hematocrit 39.5 % (36.0-45.0); Lymphocytes % 45.8 % (15.3-44.8); MPV 8.5 fL (7.6-11.3)
[2018-07-27 12:18] LABS: Urine Blood TRACE (NEG); Urine Glucose NEGATIVE (NEG); Urine Protein TRACE (NEG); Urine Specific Gravity >1.030 (1.005-1.030)
[2018-07-27 12:20] LABS: Potassium 4.1 mmol/L (3.5-5.1)
[2018-07-27 12:23] LABS: Urine Bacteria <20 /HPF (<20); Urine Culture Reflex Order NOT NEEDED; Urine Mucus 2+ /HPF (NONE SEEN); Urine RBC <5 /HPF (NONE SEEN)
--- NOTE | 2018-07-27 13:16 | EDPHYS ---
Physician Documentation [facility] Name: Mile Wang Age: 23 yrs Sex: Female : 1995 Arrival Date: 07/27/2018 Time: 11:27 Bed 25 Private MD: ED Physician Mesfin Brenner HPI: 07/27 11:52 This 23 yrs old Female presents to ER via EMS with complaints of Seizure. rn 11:52 The patient presents with a history of multiple seizures, a total of 2. Seizure onset: rn just prior to arrival. Associated injury: The patient did not suffer any apparent associated injury. Current symptoms: Currently, the patient is not experiencing any symptoms. The patient has experienced similar episodes in the past, chronically. The patient has been recently seen by a physician:. Reports 2nd time this week has had seizure, + known seizure disorder, reports goes long time without seizure, then if has infection or takes abx, has seizures. Has had 2 seizures today, witnessed, at work, each lasting less than 1 minute. No injury, was helped to ground. Normal vitals for EMS. EMS reports initially didn't follow commands but at same time, called out for her phone and didn't want to leave it behind. Patient reports taking abx for staph infection, seen here and had I\T\D.. 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 - Social history:: Smoking status: Patient/guardian denies using tobacco. - Ebola Screening: : Patient negative for fever greater than or equal to 101.5 degrees Fahrenheit, and additional compatible Ebola Virus Disease symptoms Patient denies exposure to infectious person Patient denies travel to an Ebola-affected area in the 21 days before illness onset. - Family history:: not pertinent. - Hospitalizations: : No recent hospitalization is reported. ROS: 11:52 Constitutional: Negative for fever, chills, and weight loss, Eyes: Negative for injury, rn pain, redness, and discharge, Neck: Negative for injury, pain, and swelling, Cardiovascular: Negative for chest pain, palpitations, and edema, Respiratory: Negative for shortness of breath, cough, wheezing, and pleuritic chest pain, Abdomen/GI: Negative for abdominal pain, nausea, vomiting, diarrhea, and constipation, Back: Negative for injury and pain, : Negative for injury, bleeding, discharge, and swelling, MS/Extremity: Negative for injury and deformity, Skin: Negative for injury, rash, and discoloration, Neuro: Negative for headache, weakness, numbness, tingling Exam: 11:52 Constitutional: This is a well developed, well nourished patient who is awake, alert, rn and in no acute distress. Head/Face: Normocephalic, atraumatic. Eyes: Pupils equal round and reactive to light, extra-ocular motions intact. Lids and lashes normal. Conjunctiva and sclera are non-icteric and not injected. Cornea within normal limits. Periorbital areas with no swelling, redness, or edema. ENT: no oral trauma Neck: Trachea midline, no thyromegaly or masses palpated, and no cervical lymphadenopathy. Supple, full range of motion without nuchal rigidity, or vertebral point tenderness. No Meningismus. Cardiovascular: Regular rate and rhythm. No pulse deficits. Respiratory: Lungs have equal breath sounds bilaterally, clear to auscultation. No increased work of breathing, no retractions or nasal flaring. Abdomen/GI: soft, non-tender MS/ Extremity: Pulses equal, no cyanosis. Neurovascular intact. Full, normal range of motion. Equal circumference. Neuro: Awake and alert, GCS 15, oriented to person, place, time, and situation. Cranial nerves II-XII grossly intact. Motor strength 5/5 in all extremities. Sensory grossly intact. Cerebellar exam normal. Vital Signs: 11:37 BP 121 / 71; Pulse 103; Resp 15; Temp 98.9(O); Pulse Ox 100% on R/A; Weight 80.74 kg; ss Height 5 ft. 4 in. (162.56 cm); Pain 7/10; 12:40 BP 117 / 68; Pulse Ox 99% ; ss 13:22 BP 105 / 76; Pulse 93; Resp 16; Pulse Ox 100% on R/A; aj1 11:37 Body Mass Index 30.55 (80.74 kg, 162.56 cm) ss Capo Coma Score: 11:37 Eye Response: spontaneous(4). Verbal Response: oriented(5). Motor Response: obeys ss commands(6). Total: 15. MDM: 11:27 Patient medically screened. rn 13:15 Differential diagnosis: seizure. Data reviewed: vital signs, nurses notes, lab test rn result(s), and as a result, I will discharge patient. Counseling: I had a detailed discussion with the patient and/or guardian regarding: the historical points, exam findings, and any diagnostic results supporting the discharge/admit diagnosis, lab results, the need for outpatient follow up, to return to the emergency department if symptoms worsen or persist or if there are any questions or concerns that arise at home. Response to treatment: the patient's condition has returned to base line, the patient is now symptom free, and as a result, I will discharge patient. Special discussion: I discussed with the patient/guardian in detail that at this point there is no indication for admission to the hospital. It is understood, however, that if the symptoms persist or worsen the patient needs to return immediately for re-evaluation. Based on the history and exam findings, there is no indication for further emergent testing or inpatient evaluation. I discussed with the patient/guardian the need to see the neurologist for further evaluation of the symptoms. 07/27 11:27 Order name: CBC with Diff; Complete Time: 12:18 07/27 11:27 Order name: Basic Metabolic Panel; Complete Time: 12:42 07/27 11:27 Order name: Urine Microscopic Only; Complete Time: 12:42 rn 07/27 11:27 Order name: EKG; Complete Time: 11:28 rn 07/27 11:47 Order name: Urine Dipstick--Ancillary (enter results); Complete Time: 12:42 07/27 11:47 Order name: Urine --Ancillary (enter results); Complete Time: 12:42 07/27 11:27 Order name: IV Start; Complete Time: 11:35 07/27 11:27 Order name: Urine Test (obtain specimen); Complete Time: 11:45 07/27 11:27 Order name: Urine Dipstick-Ancillary (obtain specimen); Complete Time: 11:45 rn 07/27 11:27 Order name: EKG - Nurse/Tech; Complete Time: 11:43 rn Administered Medications: No medications were administered Disposition: 07/27/18 13:16 Discharged to Home. Impression: Epilepsy and recurrent seizures. - Condition is Stable. - Discharge Instructions: Seizure, Adult. - Work release form, Medication Reconciliation Form, Thank You Letter, Antibiotic Education, Prescription Opioid Use form. - Follow up: Private Physician; When: As needed; Reason: Recheck today's complaints, Re-evaluation by your physician. - Problem is an acute exacerbation. - Symptoms are resolved. Signatures: Dispatcher [employer] EDMS Deloris Mosley RN RN aj1 Mesfin Brenner MD MD rn Smirch, Shelby, RN RN ss Corrections: (The following items were deleted from the chart) 11:54 11:52 Constitutional: Negative for fever, chills, and weight loss, Eyes: Negative for rn injury, pain, redness, and discharge, Cardiovascular: Negative for chest pain, palpitations, and edema, Respiratory: Negative for shortness of breath, cough, wheezing, and pleuritic chest pain, Abdomen/GI: Negative for abdominal pain, nausea, vomiting, diarrhea, and constipation, MS/Extremity: Negative for injury and deformity, Skin: Negative for injury, rash, and discoloration, Neuro: Negative for headache, weakness, numbness, tingling rn 13:23 13:16 07/27/2018 13:16 Discharged to Home. Impression: Epilepsy and recurrent seizures. aj1 Condition is Stable. Forms are Medication Reconciliation Form, Thank You Letter, Antibiotic Education, Prescription Opioid Use. Follow up: Private Physician; When: As needed; Reason: Recheck today's complaints, Re-evaluation by your physician. Problem is an acute exacerbation. Symptoms are resolved. rn
--- NOTE | 2018-07-27 13:16 | ER ---
Nurse's Notes [facility] Name: Mile Wang Age: 23 yrs Sex: Female : 1995 Arrival Date: 07/27/2018 Time: 11:27 Bed 25 Private MD: Diagnosis: Epilepsy and recurrent seizures Presentation: 07/27 11:27 Presenting complaint: EMS states: seizure at work. Pt reports she has not taken her ss dose of Keppra this morning because she was in a hurry to get to work. Transition of care: patient was not received from another setting of care. Onset of symptoms was July 27, 2018. Risk Assessment: Do you want to hurt yourself or someone else? Patient reports no desire to harm self or others. Initial Sepsis Screen: Does the patient meet any 2 criteria? HR > 90 bpm. Does the patient have a suspected source of infection? No. Patient's initial sepsis screen is negative. Care prior to arrival: IV initiated. 20 GA, in the right antecubital area, Glucose check: 94. 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 - Social history:: Smoking status: Patient/guardian denies using tobacco. - Ebola Screening: : Patient negative for fever greater than or equal to 101.5 degrees Fahrenheit, and additional compatible Ebola Virus Disease symptoms Patient denies exposure to infectious person Patient denies travel to an Ebola-affected area in the 21 days before illness onset. - Family history:: not pertinent. - Hospitalizations: : No recent hospitalization is reported. Screenin:39 Abuse screen: Denies threats or abuse. Denies injuries from another. Nutritional ss screening: No deficits noted. Tuberculosis screening: Never had TB. Fall Risk No fall in past 12 months (0 pts). Secondary diagnosis (15 points) seizures, IV access (20 points). Ambulatory Aid- None/Bed Rest/Nurse Assist (0 pts). Gait- Normal/Bed Rest/Wheelchair (0 pts) Mental Status- Oriented to own ability (0 pts). Assessment: 11:39 General: Appears in no apparent distress. comfortable, Behavior is calm, cooperative. ss Pain: Complains of pain in headache in entire Pain currently is 7 out of 10 on a pain scale. Quality of pain is described as aching, Pain began just after seizure activity ceased Is continuous. Neuro: Level of Consciousness is awake, alert, obeys commands, Oriented to person, place, time, situation, Liability Claims Representative are equal bilaterally Moves all extremities. Full function Gait is steady, pt ambulated with steady gait to restroom by nurses station. Speech is normal, Facial symmetry appears normal, Pupils are PERRLA. Cardiovascular: Capillary refill < 3 seconds is brisk in bilateral fingers. Respiratory: Airway is patent Respiratory effort is even, unlabored, Respiratory pattern is regular, symmetrical. GI: Patient currently denies abdominal pain, diarrhea, nausea, vomiting. : No signs and/or symptoms were reported regarding the genitourinary system. EENT: Nares are clear Oral mucosa is moist. Derm: Skin is intact, is healthy with good turgor, Skin is dry, Skin is pink, warm \T\ dry. normal. Musculoskeletal: Circulation, motion, and sensation intact. Range of motion: intact in all extremities, Swelling absent. 12:40 Reassessment: Patient appears in no apparent distress at this time. Patient and/or ss family updated on plan of care and expected duration. Pain level reassessed. Patient is alert, oriented x 3, equal unlabored respirations, skin warm/dry/pink. 13:22 Reassessment: Patient appears in no apparent distress at this time. No changes from aj1 previously documented assessment. Patient and/or family updated on plan of care and expected duration. Pain level reassessed. Patient is alert, oriented x 3, equal unlabored respirations, skin warm/dry/pink. Vital Signs: 11:37 BP 121 / 71; Pulse 103; Resp 15; Temp 98.9(O); Pulse Ox 100% on R/A; Weight 80.74 kg; ss Height 5 ft. 4 in. (162.56 cm); Pain 7/10; 12:40 BP 117 / 68; Pulse Ox 99% ; ss 13:22 BP 105 / 76; Pulse 93; Resp 16; Pulse Ox 100% on R/A; aj1 11:37 Body Mass Index 30.55 (80.74 kg, 162.56 cm) Capo Coma Score: 11:37 Eye Response: spontaneous(4). Verbal Response: oriented(5). Motor Response: obeys ss commands(6). Total: 15. ED Course: 11:27 Patient arrived in ED. rn 11:27 Mesfin Brenner MD is Attending Physician. rn 11:34 Beverley Holland RN is Primary Nurse. ss 11:36 Triage completed. ss 11:37 Arm band placed on right wrist. ss 11:39 Patient has correct armband on for positive identification. Bed in low position. Call ss light in reach. Side rails up X2. Seizure precautions initiated. Warm blanket given. 11:39 Maintain EMS IV. Dressing intact. Good blood return noted. Site clean \T\ dry. Gauge \T\ ss site: 20 gauge in R AC. Patient maintains SpO2 saturation greater than 95% on room air. 11:40 Urine collected: clean catch specimen, cloudy, reinaldo colored. jb1 11:45 EKG done, by tire technician. reviewed by Mesfin Brenner MD. at1 11:50 Initial lab(s) drawn, by ma, sent to lab. jb1 13:23 No provider procedures requiring assistance completed. IV discontinued, intact, aj1 bleeding controlled, No redness/swelling at site. Pressure dressing applied. Administered Medications: No medications were administered Outcome: 13:16 Discharge ordered by . rn 13:23 Discharged to home ambulatory, with family. aj1 13:23 Condition: good 13:23 Discharge instructions given to patient, Instructed on discharge instructions, follow up and referral plans. Demonstrated understanding of instructions, follow-up care. 13:23 Patient left the ED. aj1 Signatures: Morgan [email or web address] Deloris Mosley RN RN Mesfin Coffey MD MD rn Smirch, Shelby, RN RN ss Gonzales, Amanda, medical field representative EKG Tat1
[2018-07-27 13:31] VITALS: TEMP 98.9
[2018-07-27 13:34] VITALS: BP 105/76; O2SAT 100
--- NOTE | 2018-07-27 17:48 | EKG ---
Test Date: 2018-07-27 Test Time: 11:40:42 Dock Operator: AMBER MEASUREMENT RESULTS: Intervals: Rate: 91 AL: 168 QRSD: 80 QT: 352 QTc: 432 [place]: P: 18 AL: 168 QRS: 78 T: 24 INTERPRETIVE STATEMENTS: Normal sinus rhythm Normal ECG Compared to ECG 07/15/2018 01:21:19 Sinus tachycardia no longer present Electronically Signed On 07-27-18 17:47:35 CDT by Ameya Devine
== END 2018-07-27 13:23 | disposition home or self-care (01) ==
LOC: ER 11:26
DX: G40.802 Other epilepsy, not intractable, without status epilepticus (principal); F31.9 Bipolar disorder, unspecified; Z88.3 Allergy status to other anti-infective agents; Z88.6 Allergy status to analgesic agent
CPT/HCPCS: 36415; 80048; 81003; 81015; 81025; 85025; 93005; 99284

== ENCOUNTER 2018-08-20 20:20 | Emergency (ER) | payer OTHER, SELFPAY ==
--- OUTSIDE RECORDS SUMMARY | 2018-08-20 20:23 | XMS REPORT ---
:1995 [facility] Address [address] [place] [address] [address] [place] [address] Care Team Providers Name Role Phone Unavailable Unavailable Unavailable Problems This patient has no known problems. Allergies, Adverse Reactions, Alerts This patient has no known allergies or adverse reactions. Medications This patient has no known medications.
--- NOTE | 2018-08-20 21:12 | ER ---
Nurse's Notes [facility] Name: Mile Wang Age: 23 yrs Sex: Female : 1995 Arrival Date: 08/20/2018 Time: 20:25 Bed 20 Private MD: Eddie Roass T Diagnosis: soft tissue infection - sub-lingually Presentation: 08/20 20:33 Presenting complaint: Patient states: "I had a piercing less then a day, but then under jd3 my tongue started swelling and I noticed black stuff. It hurts and is hard to eat and talk.". Transition of care: patient was not received from another setting of care. Onset of symptoms was August 20, 2018. Risk Assessment: Do you want to hurt yourself or someone else? Patient reports no desire to harm self or others. Initial Sepsis Screen: Does the patient meet any 2 criteria? HR > 90 bpm. No. Patient's initial sepsis screen is negative. Does the patient have a suspected source of infection? No. Patient's initial sepsis screen is negative. Care prior to arrival: None. 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 - Social history:: Smoking status: Patient/guardian denies using tobacco. - Ebola Screening: : Patient negative for fever greater than or equal to 101.5 degrees Fahrenheit, and additional compatible Ebola Virus Disease symptoms. Screenin:41 Abuse screen: Denies threats or abuse. Denies injuries from another. Nutritional ed1 screening: No deficits noted. Tuberculosis screening: No symptoms or risk factors identified. Fall Risk None identified. Assessment: 20:41 General: Appears in no apparent distress. Behavior is calm, cooperative, Denies fever, ed1 feeling ill, fatigue, chills, Pt reports getting a piercing "a few days ago" and one she saw "puss coming out of the holes" she took the piercing out. Pt reports swelling and pain under the tongue . Pain: Complains of pain in under tongue Pain currently is 7 out of 10 on a pain scale. Quality of pain is described as throbbing. Neuro: Level of Consciousness is awake, alert, obeys commands, Oriented to person, place, time, situation. Cardiovascular: Denies chest pain, Heart tones S1 S2 present. Respiratory: Airway is patent Respiratory effort is even, unlabored, Respiratory pattern is regular, symmetrical, Breath sounds are clear bilaterally. GI: No signs and/or symptoms were reported involving the gastrointestinal system. : No signs and/or symptoms were reported regarding the genitourinary system. EENT: swelling noted under tongue. Derm: Skin is intact, is healthy with good turgor, Skin is dry, Skin is normal, Skin temperature is warm. Musculoskeletal: Circulation, motion, and sensation intact. Range of motion: intact in all extremities. 21:19 Reassessment: Patient appears in no apparent distress at this time. No changes from ed1 previously documented assessment. Patient and/or family updated on plan of care and expected duration. Pain level reassessed. Patient is alert, oriented x 3, equal unlabored respirations, skin warm/dry/pink. Patient states symptoms have not improved. Vital Signs: 20:32 BP 127 / 72; Pulse 109; Resp 17 S; Temp 98.5(O); Pulse Ox 100% on R/A; Weight 78.93 kg jd3 (R); Height 5 ft. 4 in. (162.56 cm) (R); Pain 7/10; 21:19 BP 124 / 78; Pulse 89; Resp 18; Temp 97.9(TE); Pulse Ox 100% on R/A; Pain 7/10; ed1 20:32 Body Mass Index 29.87 (78.93 kg, 162.56 cm) jd3 ED Course: 20:25 Patient arrived in ED. es 20:27 Eddie Rosas MD is Private Physician. es 20:35 Triage completed. jd3 20:36 Arm band placed on. jd3 20:41 Sophie Miller, RN is Primary Nurse. ed1 20:41 Awaiting ED provider evaluation. ed1 20:41 Patient has correct armband on for positive identification. Bed in low position. Call ed1 light in reach. Adult w/ patient. 20:43 Keyonna Lui FNP-C is [facility]. snw 20:43 Zen Villanueva MD is Attending Physician. snw 21:10 Eddie Rosas MD is Referral Physician. snw 21:19 No provider procedures requiring assistance completed. Patient did not have IV access ed1 during this emergency room visit. Administered Medications: 21:02 Drug: predniSONE 40 mg Route: PO; ed1 21:19 Follow up: Response: No adverse reaction ed1 21:04 Drug: Clindamycin 300 mg Route: PO; ed1 21:19 Follow up: Response: No adverse reaction ed1 Outcome: 21:12 Discharge ordered by MD. snw 21:19 Discharged to home ambulatory. ed1 21:19 Condition: good 21:19 Discharge instructions given to patient, Instructed on discharge instructions, follow up and referral plans. medication usage, Demonstrated understanding of instructions, follow-up care, medications, Prescriptions given X 3. 21:20 Patient left the ED. ed1 Signatures: Keyonna Lui FNP-C PRINCIPAL CLERK TYPIST-Csnw Fannie Borrero Erika RN RN ed1 Bubba Quinteros RN RN jd3
--- NOTE | 2018-08-20 21:12 | EDPHYS ---
Physician Documentation [facility] Name: Mile Wang Age: 23 yrs Sex: Female : 1995 Arrival Date: 08/20/2018 Time: 20:25 Bed 20 Private MD: Eddie Rosas T ED Physician Zen Villanueva HPI: 08/20 21:09 This 23 yrs old Female presents to ER via Ambulatory with complaints of snw INFECTED UNDER TONGUE. 21:09 Onset: The symptoms/episode began/occurred suddenly, 3 day(s) ago, and became snw persistent. Associated signs and symptoms: Pertinent positives: The patient does not have any pertinent positive signs or symptoms associated with pediatric illness. The patient has not experienced similar symptoms in the past. The patient has not recently seen a physician. 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 - Social history:: Smoking status: Patient/guardian denies using tobacco. - Ebola Screening: : Patient negative for fever greater than or equal to 101.5 degrees Fahrenheit, and additional compatible Ebola Virus Disease symptoms. ROS: 21:08 Constitutional: Negative for fever, chills, and weight loss, Eyes: Negative for injury, snw pain, redness, and discharge, ENT: Negative for injury, and discharge, sub-lingual area tender, edematous, and was draining pus per report Neck: Negative for injury, pain, and swelling, Cardiovascular: Negative for chest pain, palpitations, and edema, Respiratory: Negative for shortness of breath, cough, wheezing, and pleuritic chest pain, Abdomen/GI: Negative for abdominal pain, nausea, vomiting, diarrhea, and constipation, Back: Negative for injury and pain, : Negative for injury, bleeding, discharge, and swelling, MS/Extremity: Negative for injury and deformity, Skin: Negative for injury, rash, and discoloration, Neuro: Negative for headache, weakness, numbness, tingling, and seizure. Exam: 21:04 Constitutional: This is a well developed, well nourished patient who is awake, alert, snw and in no acute distress. Head/Face: Normocephalic, atraumatic. Eyes: Pupils equal round and reactive to light, extra-ocular motions intact. Lids and lashes normal. Conjunctiva and sclera are non-icteric and not injected. Cornea within normal limits. Periorbital areas with no swelling, redness, or edema. Neck: Trachea midline, no thyromegaly or masses palpated, and no cervical lymphadenopathy. Supple, full range of motion without nuchal rigidity, or vertebral point tenderness. No Meningismus. Chest/axilla: Normal chest wall appearance and motion. Nontender with no deformity. No lesions are appreciated. Cardiovascular: Tachycardic rate and rhythm with a normal S1 and S2. No gallops, murmurs, or rubs. Normal PMI, no JVD. No pulse deficits. Respiratory: Lungs have equal breath sounds bilaterally, clear to auscultation and percussion. No rales, rhonchi or wheezes noted. No increased work of breathing, no retractions or nasal flaring. Abdomen/GI: Soft, non-tender, with normal bowel sounds. No distension or tympany. No guarding or rebound. No evidence of tenderness throughout. Back: No spinal tenderness. No costovertebral tenderness. Full range of motion. Skin: Warm, dry with normal turgor. Normal color with no rashes, no lesions, and no evidence of cellulitis. MS/ Extremity: Pulses equal, no cyanosis. Neurovascular intact. Full, normal range of motion. Neuro: Awake and alert, GCS 15, oriented to person, place, time, and situation. Cranial nerves II-XII grossly intact. Motor strength 5/5 in all extremities. Sensory grossly intact. Cerebellar exam normal. Normal gait. Psych: Awake, alert, with orientation to person, place and time. Behavior, mood, and affect are within normal limits. 21:04 ENT: External ear(s): are unremarkable, Ear canal(s): are normal, TM's: are normal, Nose: is normal, Mouth: sub lingular frenulum pierced 2 days ago, pt took piercing out in less than 24 hours second to pain, area now edematous with small black appearing dots, tender, Voice: is normal. Vital Signs: 20:32 BP 127 / 72; Pulse 109; Resp 17 S; Temp 98.5(O); Pulse Ox 100% on R/A; Weight 78.93 kg jd3 (R); Height 5 ft. 4 in. (162.56 cm) (R); Pain 7/10; 21:19 BP 124 / 78; Pulse 89; Resp 18; Temp 97.9(TE); Pulse Ox 100% on R/A; Pain 7/10; ed1 20:32 Body Mass Index 29.87 (78.93 kg, 162.56 cm) jd3 MDM: 20:46 Patient medically screened. snw 20:55 Patient medically screened. snw 21:16 Data reviewed: vital signs, nurses notes. Data interpreted: Pulse oximetry: on room air snw is 100 %. Interpretation: normal. Counseling: I had a detailed discussion with the patient and/or guardian regarding: the historical points, exam findings, and any diagnostic results supporting the discharge/admit diagnosis, the need for outpatient follow up, to return to the emergency department if symptoms worsen or persist or if there are any questions or concerns that arise at home. Special discussion: Based on the history and exam findings, there is no indication for further emergent testing or inpatient evaluation. I discussed with the patient/guardian the need to see the primary care provider for further evaluation of the symptoms. Administered Medications: 21:02 Drug: predniSONE 40 mg Route: PO; ed1 21:19 Follow up: Response: No adverse reaction ed1 21:04 Drug: Clindamycin 300 mg Route: PO; ed1 21:19 Follow up: Response: No adverse reaction ed1 Disposition: 14 21:12 Discharged to Home. Impression: soft tissue infection - sub-lingually. - Condition is Stable. - Discharge Instructions: Mouth Laceration, Soft-Food Meal Plan. - Prescriptions for chlorhexidine gluconate 0.12 % Mucous Membrane mouthwash - place 15 milliliter by MUCOUS MEMBRANE route 2 times per day after brushing teeth, swish in mouth for 30 seconds then spit out; 480 milliliter. Clindamycin HCl 300 mg Oral Capsule - take 1 capsule by ORAL route every 6 hours for 10 days; 40 capsule. Diclofenac Sodium 75 mg Oral Tablet Sustained Release - take 1 tablet by ORAL route 2 times per day; 30 tablet. - Medication Reconciliation Form, Thank You Letter, Antibiotic Education, Prescription Opioid Use form. - Follow up: Eddie Rosas MD; When: 2 - 3 days; Reason: Recheck today's complaints, Continuance of care, Re-evaluation by your physician. Follow up: Emergency Department; When: As needed; Reason: Worsening of condition. Addendum: 08/23/2018 09:52 Co-signature as Attending Physician, Zen Villanueva MD I agree with the assessment and c poole plan of care. Signatures: Zen Villanueva MD MD cha Therrien, Shelly, LABORER OPERATOR-C LABORER OPERATOR-Csnw Sophie Miller, RN RN ed1 Bubba Quinteros RN RN jd3 Corrections: (The following items were deleted from the chart) 08/20 21:20 21:12 08/20/2018 21:12 Discharged to Home. Impression: soft tissue infection - ed1 sub-lingually. Condition is Stable. Forms are Medication Reconciliation Form, Thank You Letter, Antibiotic Education, Prescription Opioid Use. Follow up: Eddie Rosas; When: 2 - 3 days; Reason: Recheck today's complaints, Continuance of care, Re-evaluation by your physician. Follow up: Emergency Department; When: As needed; Reason: Worsening of condition. snw
[2018-08-20] MEDS ORDERED: predniSONE 20 MG TAB ONE (21:15)
[2018-08-20] MEDS ORDERED: CLINDAMYCIN HCL 150 MG CAP ONE (21:15)
[2018-08-20 21:42] VITALS: O2SAT 100
[2018-08-20 21:43] VITALS: BP 124/78; TEMP 97.9
== END 2018-08-20 21:20 | disposition home or self-care (01) ==
LOC: ER 20:20
DX: M79.89 Other specified soft tissue disorders (principal); Z88.1 Allergy status to other antibiotic agents; Z88.5 Allergy status to narcotic agent
CPT/HCPCS: 99283; J7512

== ENCOUNTER 2018-09-28 19:39 | Emergency (ER) | payer OTHER ==
--- OUTSIDE RECORDS SUMMARY | 2018-09-28 19:40 | XMS REPORT ---
:1995 [facility] [address] [place] [address] [address] [place] [address] Care Team Providers Name Role Phone Unavailable Unavailable Unavailable Problems This patient has no known problems. Allergies, Adverse Reactions, Alerts This patient has no known allergies or adverse reactions. Medications This patient has no known medications.
[2018-09-28] MEDS ORDERED: LEVETIRACETAM 500 MG/5 ML VIAL IV ONE (20:26)
[2018-09-28] MEDS ORDERED: ACETAMINOPHEN 500 MG TAB ONE (20:47)
[2018-09-28] MEDS ORDERED: NA CHLORIDE 0.9% 500 ML ONE (20:47)
[2018-09-28 21:48] LABS: Hematocrit 39.6 % (36.0-45.0); MPV 8.8 fL (7.6-11.3); RBC Red Blood Cell Count 4.62 M/uL (3.86-4.86)
[2018-09-28 21:50] LABS: Urine Blood 2+ (NEG); Urine Glucose NEGATIVE (NEG); Urine Protein TRACE (NEG)
[2018-09-28 22:01] LABS: ALT/SGPT 18 U/L (12-78); AST/SGOT 11 U/L (15-37); Albumin 3.9 g/dL (3.4-5.0); Alkaline Phosphatase 84 U/L (45-117); BUN Blood Urea Nitrogen 7 mg/dL (7-18); Bicarbonate 28 mmol/L (21-32); Bilirubin Total 0.5 mg/dL (0.2-1.0); Glucose Level 87 mg/dL (74-106); Potassium 3.1 mmol/L (3.5-5.1); Protein, Total 6.7 g/dL (6.4-8.2); Sodium Level 141 mmol/L (136-145)
[2018-09-28 22:04] LABS: Barbiturates NEGATIVE (NEGATIVE); Benzodiazepines NEGATIVE (NEGATIVE); Cocaine NEGATIVE (NEGATIVE); METHAMPHETAM POSITIVE (NEGATIVE); Methadone NEGATIVE (NEGATIVE); Opiates NEGATIVE (NEGATIVE); Phencyclidine NEGATIVE (NEGATIVE); THC Cannibis POSITIVE (NEGATIVE)
--- NOTE | 2018-09-28 22:31 | EDPHYS ---
Physician Documentation [facility] Name: Mile Wang Age: 23 yrs Sex: Female : 1995 Arrival Date: 09/28/2018 Time: 19:41 Bed 8 Private MD: ED Physician Luis Ceron HPI: 09/28 20:35 This 23 yrs old Female presents to ER via EMS with complaints of Seizure. tw4 20:35 The patient presents with a history of multiple seizures. Character of seizure(s): Loss tw4 of consciousness: it is not known if the patient experienced loss of consciousness, Motor activity: generalized, shaking all over. Seizure onset: just prior to arrival. Context: the seizure(s) was witnessed, by a friend, occurred at home. Seizure Hx: the patient has no previous seizure history. The patient has not experienced similar symptoms in the past. 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 - Social history:: Smoking status: Patient/guardian denies using tobacco, Patient/guardian denies using alcohol, street drugs. - Ebola Screening: : Patient negative for fever greater than or equal to 101.5 degrees Fahrenheit, and additional compatible Ebola Virus Disease symptoms Patient denies exposure to infectious person Patient denies travel to an Ebola-affected area in the 21 days before illness onset. ROS: 20:35 Constitutional: Negative for fever, chills, and weight loss, Cardiovascular: Negative tw4 for chest pain, palpitations, and edema, Respiratory: Negative for shortness of breath, cough, wheezing, and pleuritic chest pain, Abdomen/GI: Negative for abdominal pain, nausea, vomiting, diarrhea, and constipation, Back: Negative for injury and pain, MS/Extremity: Negative for injury and deformity, Skin: Negative for injury, rash, and discoloration. 20:35 Neuro: Positive for seizure activity, Negative for altered mental status, dizziness, gait disturbance, headache, tinnitus, tremor, visual changes. Exam: 20:35 Constitutional: This is a well developed, well nourished patient who is awake, alert, tw4 and in no acute distress. Head/Face: Normocephalic, atraumatic. Chest/axilla: Normal chest wall appearance and motion. Nontender with no deformity. No lesions are appreciated. Cardiovascular: Regular rate and rhythm with a normal S1 and S2. No gallops, murmurs, or rubs. Normal PMI, no JVD. No pulse deficits. Respiratory: Lungs have equal breath sounds bilaterally, clear to auscultation and percussion. No rales, rhonchi or wheezes noted. No increased work of breathing, no retractions or nasal flaring. Abdomen/GI: Soft, non-tender, with normal bowel sounds. No distension or tympany. No guarding or rebound. No evidence of tenderness throughout. Skin: Warm, dry with normal turgor. Normal color with no rashes, no lesions, and no evidence of cellulitis. MS/ Extremity: Pulses equal, no cyanosis. Neurovascular intact. Full, normal range of motion. 20:35 Neuro: Orientation: is normal, Mentation: slow to respond, Memory: is normal, Cranial nerves: grossly normal, CN I not tested, CN II- XII are normal as tested, Cerebellar function: is grossly normal. Vital Signs: 19:43 BP 124 / 61; Pulse 90; Resp 18; Temp 98.6(O); Pulse Ox 100% on R/A; Weight 77.11 kg ao (R); Height 5 ft. 5 in. (165.10 cm) (R); Pain 0/10; 20:45 BP 124 / 95; Pulse 89; Resp 18; Pulse Ox 99% on R/A; Pain 0/10; ao 22:56 BP 122 / 84; Pulse 83; Resp 18; Pulse Ox 100% on R/A; ao 19:43 Body Mass Index 28.29 (77.11 kg, 165.10 cm) ao [place] Score: 19:48 Eye Response: spontaneous(4). Verbal Response: oriented(5). Motor Response: obeys ao commands(6). Total: 15. MDM: 19:41 Patient medically screened. tw4 09/29 06:02 Differential diagnosis: seizure. Data reviewed: vital signs, nurses notes. Data tw4 interpreted: Pulse oximetry: Interpretation: normal. Counseling: I had a detailed discussion with the patient and/or guardian regarding: the historical points, exam findings, and any diagnostic results supporting the discharge/admit diagnosis, lab results. 09/28 19:43 Order name: CBC w/o diff; Complete Time: 22:19 [facility] 09/28 22:19 Interpretation: Within normal limits. [facility] 09/28 19:43 Order name: CMP; Complete Time: 22:19 [facility] 09/28 22:19 Interpretation: Normal except: K 3.1; CL 109. [facility] 09/28 19:43 Order name: Urine Drug Screen; Complete Time: 22:19 [facility] 09/28 22:19 Interpretation: Normal except: METHAMPHETAMINE POSITIVE; THC POSITIVE. [facility] 09/28 21:39 Order name: Urine Dipstick--Ancillary (enter results); Complete Time: 22:19 [facility] 09/28 22:19 Interpretation: Normal except: UKET 1+; UBLD 2+; UESTR TRACE. [facility] 09/28 21:39 Order name: Urine --Ancillary (enter results); Complete Time: 22:19 [facility] 09/28 22:19 Interpretation: Within normal limits: URINE PREG NEG. [facility] 09/28 19:43 Order name: Urine Dipstick-Ancillary (obtain specimen); Complete Time: 22:50 [facility] 09/28 19:43 Order name: Urine Test (obtain specimen); Complete Time: 22:51 Administered Medications: 09/28 20:39 Drug: Keppra 20 mg/kg Route: IV; Rate: calculated rate; Site: right antecubital; ao 22:50 Follow up: IV Status: Completed infusion; IV Intake: 500ml ao 20:39 Drug: NS 0.9% 1000 ml Route: IV; Rate: 1 bolus; Site: left antecubital; ao 22:50 Follow up: IV Status: Completed infusion; IV Intake: 1000ml ao 20:40 Drug: Tylenol 1000 mg Route: PO; ao 22:50 Follow up: Response: No adverse reaction ao 22:33 Drug: Potassium Chloride 40 mEq Route: PO; ao 22:50 Follow up: Response: No adverse reaction ao Disposition: 09/28/18 22:30 Discharged to Home. Impression: Epilepsy and recurrent seizures. - Condition is Stable. - Discharge Instructions: Seizure, Adult. - Prescriptions for Keppra 750 mg Oral Tablet - take 2 tablet by ORAL route every 12 hours; 60 tablet. - Medication Reconciliation Form, Thank You Letter, Antibiotic Education, Prescription Opioid Use form. - Follow up: Private Physician; When: Upon discharge from the Emergency Department; Reason: If symptoms return, Recheck today's complaints, Continuance of care. - Problem is new. - Symptoms have improved. Signatures: Dispatcher [employer] Braeden Miguel RN RN ao Wadley, Terrence, MD MD tw4 Corrections: (The following items were deleted from the chart) 22:56 22:30 09/28/2018 22:30 Discharged to Home. Impression: Epilepsy and recurrent seizures. ao Condition is Stable. Forms are Medication Reconciliation Form, Thank You Letter, Antibiotic Education, Prescription Opioid Use. Follow up: Private Physician; When: Upon discharge from the Emergency Department; Reason: If symptoms return, Recheck today's complaints, Continuance of care. Problem is new. Symptoms have improved. tw4
--- NOTE | 2018-09-28 22:31 | ER ---
Nurse's Notes [facility] Name: Mile Wang Age: 23 yrs Sex: Female : 1995 Arrival Date: 09/28/2018 Time: 19:41 Bed 8 Private MD: Diagnosis: Epilepsy and recurrent seizures Presentation: 09/28 19:42 Presenting complaint: EMS states: Patient with a history of seizures and was on Keppra ao that stooped. Patient reported having three seizure activity today lasting 20 to 25 min. Transition of care: patient was not received from another setting of care. Onset of symptoms is unknown. Risk Assessment: Do you want to hurt yourself or someone else? Patient reports no desire to harm self or others. Initial Sepsis Screen: Does the patient meet any 2 criteria? No. Patient's initial sepsis screen is negative. Does the patient have a suspected source of infection? No. Patient's initial sepsis screen is negative. Care prior to arrival: None. 19:42 Method Of Arrival: EMS: [facility] ao 19:42 Acuity: BAIRON 3 ao Triage Assessment: 19:48 General: Appears in no apparent distress. comfortable, Behavior is calm, cooperative, ao appropriate for age. WRAPPER HAND: 22:55 LMP N/A - ao Historical: - Allergies: 19:45 Doxycycline; ao 19:45 tramadol; ao - Home Meds: 19:45 Keppra Oral [Active]; ao - PMHx: 19:45 Anxiety; Bipolar disorder; Psychogenic Seizures; ao - PSHx: 19:45 Tonsillectomy; ao - Immunization history:: Adult Immunizations up to date. - Social history:: Smoking status: Patient/guardian denies using tobacco, Patient/guardian denies using alcohol, street drugs. - Ebola Screening: : Patient negative for fever greater than or equal to 101.5 degrees Fahrenheit, and additional compatible Ebola Virus Disease symptoms Patient denies exposure to infectious person Patient denies travel to an Ebola-affected area in the 21 days before illness onset. Screenin:48 Abuse screen: Denies threats or abuse. Denies injuries from another. Nutritional ao screening: No deficits noted. Tuberculosis screening: No symptoms or risk factors identified. Fall Risk None identified. Assessment: 19:45 General: Appears in no apparent distress. comfortable, Behavior is calm, cooperative, ao appropriate for age. 19:46 Pain: Denies pain. Neuro: Level of Consciousness is awake, alert, obeys commands, ao Oriented to person, place, time, situation, Appropriate for age Moves all extremities. Full function Speech is normal. Cardiovascular: Heart tones S1 S2 Capillary refill < 3 seconds Patient's skin is warm and dry. Respiratory: Airway is patent Respiratory effort is even, unlabored, Respiratory pattern is regular, symmetrical. GI: Abdomen is non-distended, Bowel sounds present X 4 quads. : No signs and/or symptoms were reported regarding the genitourinary system. EENT:. Derm: No signs and/or symptoms reported regarding the dermatologic system. Skin is intact, Skin is pink, warm \T\ dry. normal, Skin temperature is warm. Musculoskeletal: Circulation, motion, and sensation intact. Range of motion:. 20:50 Reassessment: Patient appears in no apparent distress at this time. Patient and/or ao family updated on plan of care and expected duration. Pain level reassessed. Patient is alert, oriented x 3, equal unlabored respirations, skin warm/dry/pink. 22:55 Reassessment: DC instruction given to Pt. Pt agree with the POC and to Follow up with ao PCP. Vital Signs: 19:43 BP 124 / 61; Pulse 90; Resp 18; Temp 98.6(O); Pulse Ox 100% on R/A; Weight 77.11 kg ao (R); Height 5 ft. 5 in. (165.10 cm) (R); Pain 0/10; 20:45 BP 124 / 95; Pulse 89; Resp 18; Pulse Ox 99% on R/A; Pain 0/10; ao 22:56 BP 122 / 84; Pulse 83; Resp 18; Pulse Ox 100% on R/A; ao 19:43 Body Mass Index 28.29 (77.11 kg, 165.10 cm) ao Cap[place]a Score: 19:48 Eye Response: spontaneous(4). Verbal Response: oriented(5). Motor Response: obeys ao commands(6). Total: 15. ED Course: 19:41 Patient arrived in ED. ds1 19:41 Luis Ceron MD is Attending Physician. tw4 19:42 Braeden Carson RN is Primary Nurse. ao 19:43 Triage completed. ao 19:45 Arm band placed on right wrist. Patient placed in an exam room, on a stretcher, on ao oxygen, Patient notified of wait time. 19:48 Fall risk band placed. Placed in gown. Bed in low position. Call light in reach. Side ao rails up X2. Seizure precautions initiated. quality assurance monitor chassis on. Pulse ox on. NIBP on. 21:00 Maintain EMS IV. Dressing intact. Good blood return noted. Site clean \T\ dry. Gauge \T\ ao site: 20 g l ac. 22:54 No provider procedures requiring assistance completed. IV discontinued, intact, ao bleeding controlled, No redness/swelling at site. Pressure dressing applied. Administered Medications: 20:39 Drug: Keppra 20 mg/kg Route: IV; Rate: calculated rate; Site: right antecubital; ao 22:50 Follow up: IV Status: Completed infusion; IV Intake: 500ml ao 20:39 Drug: NS 0.9% 1000 ml Route: IV; Rate: 1 bolus; Site: left antecubital; ao 22:50 Follow up: IV Status: Completed infusion; IV Intake: 1000ml ao 20:40 Drug: Tylenol 1000 mg Route: PO; ao 22:50 Follow up: Response: No adverse reaction ao 22:33 Drug: Potassium Chloride 40 mEq Route: PO; ao 22:50 Follow up: Response: No adverse reaction ao Intake: 22:50 IV: 500ml; Total: 500ml. ao 22:50 IV: 1000ml; Total: 1500ml. ao Outcome: 22:30 Discharge ordered by tw4 22:54 Discharged to home ambulatory. ao 22:54 Condition: stable 22:54 Discharge instructions given to patient, Instructed on discharge instructions, follow up and referral plans. Demonstrated understanding of instructions, follow-up care, medications, Prescriptions given X 1. 22:56 Patient left the ED. ao Signatures: Cinthia Gilliland ds1 Braeden Carson RN RN Luis Arita MD MD tw4 Corrections: (The following items were deleted from the chart) 19:46 19:43 BP 124 / 61; Pulse 90bpm; Resp 90bpm; Pulse Ox 100% RA; Temp 98.6F Oral; 77.11 kg ao Reported; Height 5 ft. 5 in. Reported; BMI: 28.2; Pain 0/10; ao 19:47 19:45 General: Appears ao ao
[2018-09-28] MEDS ORDERED: POTASSIUM CL SA 10 MEQ TAB PO ONE (22:48)
[2018-09-28 23:18] VITALS: BP 124/61; TEMP 98.6; O2SAT 100
== END 2018-09-28 22:56 | disposition home or self-care (01) ==
LOC: ER 19:39
DX: G40.909 Epilepsy, unspecified, not intractable, without status epilepticus (principal); F41.9 Anxiety disorder, unspecified; F31.9 Bipolar disorder, unspecified; Z88.1 Allergy status to other antibiotic agents; Z88.5 Allergy status to narcotic agent
CPT/HCPCS: 36415; 80053; 80307; 81003; 81025; 85027; 96365; 96366; 99285; J1953

== ENCOUNTER 2018-10-05 23:57 | Emergency (ER) | payer OTHER ==
--- OUTSIDE RECORDS SUMMARY | 2018-10-05 23:59 | XMS REPORT ---
:1995 [facility] [address] [place] [address] [address] [place] [address] Care Team Providers Name Role Phone Unavailable Unavailable Unavailable Problems This patient has no known problems. Allergies, Adverse Reactions, Alerts This patient has no known allergies or adverse reactions. Medications This patient has no known medications.
[2018-10-06 01:00] LABS: Barbiturates NEGATIVE (NEGATIVE); Benzodiazepines NEGATIVE (NEGATIVE); Cocaine NEGATIVE (NEGATIVE); METHAMPHETAM POSITIVE (NEGATIVE); Methadone NEGATIVE (NEGATIVE); Opiates NEGATIVE (NEGATIVE); Phencyclidine NEGATIVE (NEGATIVE); THC Cannibis POSITIVE (NEGATIVE)
[2018-10-06 01:19] LABS: Absolute Lymphocytes (CBC) 3.2 K/uL (0.7-4.9); Basophils % 0.3 % (0-1.3); Hematocrit 42.4 % (36.0-45.0); Lymphocytes % 30.8 % (15.3-44.8); RBC Red Blood Cell Count 4.97 M/uL (3.86-4.86)
[2018-10-06 01:20] LABS: Protime INR 1.04
[2018-10-06 01:31] LABS: ALT/SGPT 21 U/L (12-78); AST/SGOT 14 U/L (15-37); Albumin 4.6 g/dL (3.4-5.0); Alkaline Phosphatase 83 U/L (45-117); BUN Blood Urea Nitrogen 16 mg/dL (7-18); Bicarbonate 30 mmol/L (21-32); Bilirubin Direct 0.2 mg/dL (0-0.2); Bilirubin Total 0.7 mg/dL (0.2-1.0); Glucose Level 90 mg/dL (74-106); Potassium 3.7 mmol/L (3.5-5.1); Protein, Total 7.9 g/dL (6.4-8.2); Sodium Level 142 mmol/L (136-145)
[2018-10-06 01:33] LABS: Urine Blood NEGATIVE (NEG); Urine Glucose NEGATIVE (NEG); Urine Protein 1+ (NEG); Urine Specific Gravity 1.025 (1.005-1.030); Urine pH 6.5 (5.0-7.0)
--- NOTE | 2018-10-06 02:12 | ER ---
Nurse's Notes [facility] Name: Mile Wang Age: 23 yrs Sex: Female : 1995 Arrival Date: 10/06/2018 Time: 00:02 Bed 3 Private MD: Diagnosis: Pseudoseizures Presentation: 10/06 00:10 Presenting complaint: EMS states: Called for patient who had been seizing for 30 lp1 minutes per family; Family states called EMS after noticing it seemed like patient was having a hard time breathing; Patient unresponsive on arrival of EMS, purposeful movement of extremities noted, not talking to EMS, pupils dilated; Hx of seizures. Transition of care: patient was not received from another setting of care. Onset of symptoms was October 06, 2018. Risk Assessment: Do you want to hurt yourself or someone else? Patient reports no desire to harm self or others. Initial Sepsis Screen: Does the patient meet any 2 criteria? No. Patient's initial sepsis screen is negative. Does the patient have a suspected source of infection? No. Patient's initial sepsis screen is negative. Care prior to arrival: Glucose check: 102. 00:10 Method Of Arrival: EMS: [facility] lp1 00:10 Acuity: BAIRON 2 lp1 Historical: - Allergies: 00:40 Doxycycline; lp1 00:40 tramadol; lp1 - Home Meds: 00:40 None [Active]; lp1 - PMHx: 00:40 Anxiety; Bipolar disorder; Psychogenic Seizures; lp1 - PSHx: 00:40 Tonsillectomy; lp1 - Immunization history:: Adult Immunizations unknown. - Social history:: Smoking status: unknown. - Ebola Screening: : No symptoms or risks identified at this time. Screenin:40 Abuse screen: Denies threats or abuse. Denies injuries from another. Nutritional lp1 screening: No deficits noted. Tuberculosis screening: No symptoms or risk factors identified. Fall Risk Total Catalan Fall Scale indicates High Risk Score (45 or more points). Fall prevention measures have been instituted. Side Rails Up X 2 Frequent Obs/Assessments Occuring Family Present and informed to notify staff if the need to leave the bedside. Assessment: 00:40 General: Appears in no apparent distress. Behavior is calm, cooperative. Pain: Denies tr5 pain. Neuro: Level of Consciousness is awake, alert, obeys commands, Oriented to person, place, time, Excellence Specialist are equal bilaterally Moves all extremities. Gait is steady. Cardiovascular: Heart tones present Bruits absent Capillary refill < 3 seconds Pulses are all present. Edema is absent. Respiratory: Airway is patent Breath sounds are clear bilaterally. GI: No signs and/or symptoms were reported involving the gastrointestinal system. : No signs and/or symptoms were reported regarding the genitourinary system. EENT: No signs and/or symptoms were reported regarding the EENT system. Derm: Skin is intact, is healthy with good turgor. Musculoskeletal: No signs and/or symptoms reported regarding the musculoskeletal system. Capillary refill < 3 seconds, Range of motion: intact in all extremities. Vital Signs: 00:10 BP 133 / 88; Pulse 106; Resp 20; Temp 97.7(TE); Pulse Ox 100% on R/A; Weight 77.11 kg lp1 (R); Height 5 ft. 5 in. (165.10 cm); 01:00 BP 132 / 83; Pulse 100; Resp 16; Pulse Ox 100% on R/A; tr5 00:10 Body Mass Index 28.29 (77.11 kg, 165.10 cm) lp1 ED Course: 00:02 Patient arrived in ED. bb 00:13 Luis Ceron MD is Attending Physician. tw4 00:15 Patient has correct armband on for positive identification. Placed in gown. Bed in low lp1 position. Seizure precautions initiated. air sampling and monitoring on. Pulse ox on. NIBP on. 00:15 Straight cath inserted, using sterile technique, 16 Fr. Specimen obtained. lp1 00:29 Triage completed. lp1 00:38 Arm band placed on. lp1 01:00 Initial lab(s) drawn, by me, sent to lab. Inserted saline lock: 22 gauge in right lt1 antecubital area, using aseptic technique. 01:00 No provider procedures requiring assistance completed. IV discontinued. tr5 02:33 Juwan Sosa, JUAN M is Primary Nurse. tr5 Administered Medications: No medications were administered Outcome: 01:00 Discharged to home ambulatory. tr5 01:00 Condition: stable 01:00 Discharge instructions given to patient, family, Instructed on discharge instructions, follow up and referral plans. Demonstrated understanding of instructions, follow-up care. 02:11 Discharge ordered by MD. vicente 02:41 Patient left the ED. tr5 Signatures: Radha Miller, RN RN bb Sallie Barkley RN RN lp1 Luis Cerno MD MD tw4 Kristy Rosales 1 Juwan Sosa RN RN tr5 Corrections: (The following items were deleted from the chart) 00:41 00:10 BP 133 / 88; Pulse 106bpm; Resp 20bpm; Pulse Ox 100% RA; Temp 97.7F Temporal; lp1 lp1
--- NOTE | 2018-10-06 02:13 | EDPHYS ---
Physician Documentation [facility] Name: Mile Wang Age: 23 yrs Sex: Female : 1995 Arrival Date: 10/06/2018 Time: 00:02 Bed 3 Private MD: ED Physician Luis Ceron HPI: 10/06 04:57 This 23 yrs old Female presents to ER via EMS with complaints of seizure. tw4 04:57 The patient presents after having a single isolated seizure, that lasted 30 minute(s). tw4 Character of seizure(s): Loss of consciousness: it is not known if the patient experienced loss of consciousness. Seizure onset: today. Context: the seizure(s) was witnessed, by family, sister. Seizure Hx: it is unknown whether or not the patient has a previous seizure history. The patient has experienced similar episodes in the past, chronically. Historical: - Allergies: 00:40 Doxycycline; lp1 00:40 tramadol; lp1 - Home Meds: 00:40 None [Active]; lp1 - PMHx: 00:40 Anxiety; Bipolar disorder; Psychogenic Seizures; lp1 - PSHx: 00:40 Tonsillectomy; lp1 - Immunization history:: Adult Immunizations unknown. - Social history:: Smoking status: unknown. - Ebola Screening: : No symptoms or risks identified at this time. ROS: 04:57 Constitutional: Negative for fever, chills, and weight loss, Eyes: Negative for injury, tw4 pain, redness, and discharge, Cardiovascular: Negative for chest pain, palpitations, and edema, Respiratory: Negative for shortness of breath, cough, wheezing, and pleuritic chest pain, Abdomen/GI: Negative for abdominal pain, nausea, vomiting, diarrhea, and constipation, Back: Negative for injury and pain, MS/Extremity: Negative for injury and deformity, Skin: Negative for injury, rash, and discoloration. 04:57 Neuro: Positive for seizure activity, Negative for dizziness, gait disturbance, headache. Exam: 04:57 Constitutional: This is a well developed, well nourished patient who is awake, alert, tw4 and in no acute distress. Head/Face: Normocephalic, atraumatic. Chest/axilla: Normal chest wall appearance and motion. Nontender with no deformity. No lesions are appreciated. Cardiovascular: Regular rate and rhythm with a normal S1 and S2. No gallops, murmurs, or rubs. Normal PMI, no JVD. No pulse deficits. Respiratory: Lungs have equal breath sounds bilaterally, clear to auscultation and percussion. No rales, rhonchi or wheezes noted. No increased work of breathing, no retractions or nasal flaring. Abdomen/GI: Soft, non-tender, with normal bowel sounds. No distension or tympany. No guarding or rebound. No evidence of tenderness throughout. MS/ Extremity: Pulses equal, no cyanosis. Neurovascular intact. Full, normal range of motion. 04:57 Neuro: Orientation: is normal, Mentation: Memory: is normal, Cerebellar function: is grossly normal. Vital Signs: 00:10 BP 133 / 88; Pulse 106; Resp 20; Temp 97.7(TE); Pulse Ox 100% on R/A; Weight 77.11 kg lp1 (R); Height 5 ft. 5 in. (165.10 cm); 01:00 BP 132 / 83; Pulse 100; Resp 16; Pulse Ox 100% on R/A; tr5 00:10 Body Mass Index 28.29 (77.11 kg, 165.10 cm) lp1 MDM: 00:13 Patient medically screened. tw4 04:57 Differential diagnosis: cerebral vascular accident, drug overdose. Data reviewed: vital tw4 signs, nurses notes. Data interpreted: Pulse oximetry: Interpretation:. Counseling: I had a detailed discussion with the patient and/or guardian regarding: the historical points, exam findings, and any diagnostic results supporting the discharge/admit diagnosis. Special discussion: I discussed with the patient/guardian in detail that at this point there is no indication for admission to the hospital. It is understood, however, that if the symptoms persist or worsen the patient needs to return immediately for re-evaluation. ED course: Pt has had multiple visits for similar symptoms, pt is noncompliant with meds and has history of drug use. 10/06 00:14 Order name: Acetaminophen; Complete Time: 02:10 tw4 10/06 00:14 Order name: Basic Metabolic Panel; Complete Time: 02:10 tw4 10/06 00:14 Order name: CBC with Diff; Complete Time: 02:10 tw4 10/06 00:14 Order name: ETOH Level; Complete Time: 02:10 10/06 00:14 Order name: Hepatic Function; Complete Time: 02:10 10/06 00:14 Order name: PT-INR; Complete Time: 02:10 10/06 00:14 Order name: Ptt, Activated; Complete Time: 02:10 10/06 00:14 Order name: Salicylate; Complete Time: 02:10 10/06 00:14 Order name: Urine Drug Screen; Complete Time: 02:10 10/06 00:14 Order name: EKG; Complete Time: 00:21 10/06 00:14 Order name: EKG - Nurse/Tech; Complete Time: 01:10/06 00:14 Order name: IV Saline Lock; Complete Time: 01:10/06 00:18 Order name: Urine Dipstick--Ancillary (enter results); Complete Time: 02:10/06 00:18 Order name: Urine --Ancillary (enter results); Complete Time: 02:10/06 00:14 Order name: Labs collected and sent; Complete Time: 01:10/06 00:14 Order name: Urine Dipstick-Ancillary (obtain specimen); Complete Time: 00:42 Administered Medications: No medications were administered Disposition: 10/06/18 02:11 Discharged to Home. Impression: Pseudoseizures. - Condition is Stable. - Discharge Instructions: Cannabis Use Disorder, Seizure, Adult, Stimulant Use Disorder-Methamphetamines. - Medication Reconciliation Form, Thank You Letter, Antibiotic Education, Prescription Opioid Use form. - Follow up: Private Physician; When: Upon discharge from the Emergency Department; Reason: If symptoms return, Recheck today's complaints, Continuance of care. - Problem is new. - Symptoms have improved. Signatures: Dispatcher [employer] EDMS Sallie Barkley RN RN lp1 Luis Ceron MD MD tw4 Juwan Sosa RN RN tr5 Corrections: (The following items were deleted from the chart) 02:41 02:11 10/06/2018 02:11 Discharged to Home. Impression: Pseudoseizures. Condition is tr5 Stable. Forms are Medication Reconciliation Form, Thank You Letter, Antibiotic Education, Prescription Opioid Use. Follow up: Private Physician; When: Upon discharge from the Emergency Department; Reason: If symptoms return, Recheck today's complaints, Continuance of care. Problem is new. Symptoms have improved. tw4
[2018-10-06 02:45] VITALS: TEMP 97.7; O2SAT 100
[2018-10-06 02:46] VITALS: BP 132/83
--- NOTE | 2018-10-06 10:48 | EKG ---
Test Date: 2018-10-06 Test Time: 00:45:20 Storeroom Attendant: JOSELYN MEASUREMENT RESULTS: Intervals: Rate: 98 ME: 158 QRSD: 78 QT: 350 QTc: 446 [place]: P: 69 ME: 158 QRS: 72 T: 39 INTERPRETIVE STATEMENTS: Normal sinus rhythm Normal ECG Compared to ECG 07/27/2018 11:40:42 No significant changes Electronically Signed On 10-06-18 10:47:25 CDT by Ameya Devine
== END 2018-10-06 02:41 | disposition home or self-care (01) ==
LOC: ER 23:57
DX: R56.9 Unspecified convulsions (principal); F41.9 Anxiety disorder, unspecified; F31.9 Bipolar disorder, unspecified; Z88.1 Allergy status to other antibiotic agents; Z88.5 Allergy status to narcotic agent
CPT/HCPCS: 36415; 80048; 80076; 80307; 80320; 80329; 81003; 81025; 85025; 85610; 85730; 93005

== ENCOUNTER 2018-11-04 23:58 | Emergency (ER) | payer OTHER ==
[2018-11-05] MEDS ORDERED: CLINDAMYCIN IV 150 MG/ML (4 mL) VIAL ONE (01:01)
[2018-11-05] MEDS ORDERED: HYDROCODONE/APAP 7.5/325 MG TAB ONE (01:01)
[2018-11-05] MEDS ORDERED: SMZ./TMP. 800/160 MG TABLET ONE (01:01)
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
[2018-11-05 03:38] VITALS: O2SAT 100
[2018-11-05 03:39] VITALS: BP 123/74; TEMP 98.8
== END 2018-11-05 02:11 | disposition home or self-care (01) ==
LOC: ER 23:58
DX: L03.114 Cellulitis of left upper limb (principal); Z88.6 Allergy status to analgesic agent; R56.9 Unspecified convulsions
CPT/HCPCS: 96372; 99283; S0077

== ENCOUNTER 2018-11-06 21:33 | Emergency (ER) | payer OTHER ==
--- OUTSIDE RECORDS SUMMARY | 2018-11-06 21:35 | XMS REPORT ---
:1995 [facility] Address [address] [place] [address] [address] [place] [address] Care Team Providers Name Role Phone Unavailable Unavailable Unavailable Problems This patient has no known problems. Allergies, Adverse Reactions, Alerts This patient has no known allergies or adverse reactions. Medications This patient has no known medications.
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
[2018-11-06 22:22] VITALS: BP 122/75; TEMP 97.1; O2SAT 100
== END 2018-11-06 22:12 | disposition home or self-care (01) ==
LOC: ER 21:33
DX: L98.6 Other infiltrative disorders of the skin and subcutaneous tissue (principal); Z88.6 Allergy status to analgesic agent; Z88.3 Allergy status to other anti-infective agents
CPT/HCPCS: 99281

== ENCOUNTER 2019-02-25 13:35 | Emergency (ER) | payer OTHER ==
--- OUTSIDE RECORDS SUMMARY | 2019-02-25 13:36 | XMS REPORT ---
:1995 Author Organization [facility] Address [address] [place] [address] [address] [place] [address] Care Team Providers Name Role Phone Unavailable Unavailable Unavailable Problems This patient has no known problems. Allergies, Adverse Reactions, Alerts This patient has no known allergies or adverse reactions. Medications This patient has no known medications.
[2019-02-25] MEDS ORDERED: NA CHLORIDE 0.9% 2,000 ML ONE (13:40)
[2019-02-25] MEDS ORDERED: ONDANSETRON 4 MG/2 ML VIAL ONE (13:40)
[2019-02-25 13:57] LABS: Absolute Lymphocytes (CBC) 2.7 K/uL (0.7-4.9); Basophils % 0.6 % (0-1.3); Lymphocytes % 24.1 % (15.3-44.8); MPV 8.3 fL (7.6-11.3); RBC Red Blood Cell Count 4.65 M/uL (3.86-4.86)
[2019-02-25 14:11] LABS: Potassium 3.7 mmol/L (3.5-5.1)
--- NOTE | 2019-02-25 14:25 | RAD REPORT ---
EXAM DESCRIPTION: CT - Head Brain Wo Cont - 02/25/2019 2:18 pm CLINICAL HISTORY: Possible seizure, transient alteration of awareness COMPARISON: November 2016 TECHNIQUE: Axial 5 mm thick images of the head were obtained without IV contrast. All CT scans are performed using dose optimization technique as appropriate and may include automated exposure control or mA/KV adjustment according to patient size. FINDINGS: No intracranial hemorrhage, mass, edema or shift of mid-line structures. No acute infarcti on changes seen. No abnormal extra-axial fluid collections. Ventricles are normal. Mastoid air cells and visualized portions of the paranasal sinuses are clear. No acute bony findings. No significant change from comparison. IMPRESSION: Negative non-contrast CT head examination.
[2019-02-25 14:48] LABS: Barbiturates NEGATIVE (NEGATIVE); Benzodiazepines NEGATIVE (NEGATIVE); Cocaine NEGATIVE (NEGATIVE); METHAMPHETAM POSITIVE (NEGATIVE); Methadone NEGATIVE (NEGATIVE); Opiates NEGATIVE (NEGATIVE); Phencyclidine NEGATIVE (NEGATIVE); THC Cannibis NEGATIVE (NEGATIVE)
[2019-02-25 14:51] LABS: Urine Blood NEGATIVE (NEG); Urine Glucose NEGATIVE (NEG); Urine Protein NEGATIVE (NEG); Urine Specific Gravity 1.015 (1.005-1.030)
[2019-02-25 14:51] LABS: Urine Bacteria <20 /HPF (<20); Urine Culture Reflex Order REFLEXED; Urine Mucus 1+ /HPF (NONE SEEN); Urine RBC <5 /HPF (NONE SEEN)
--- NOTE | 2019-02-25 16:34 | EKG ---
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
--- NOTE | 2019-02-25 17:44 | EDPHYS ---
Physician Documentation [facility] Name: Mile Wang Age: 24 yrs Sex: Female : 1995 Arrival Date: 02/25/2019 Time: 13:38 Bed 3 Private MD: ED Physician Mesfin Brenner HPI: 02/25 14:18 This 24 yrs old Female presents to ER via EMS with complaints of Overdose, rn Drug Abuse. 14:18 The patient presents to the emergency department with a possible overdose. Context: rn Method:. Severity of symptoms: At their worst the symptoms were moderate in the emergency department the symptoms are unchanged. It is unknown whether or not the patient has had similar symptoms in the past. Per EMS, family member called 911 from apartment for AMS, told EMS has taken approx 20 hits of ecstasy, and maybe 1 dose of LSD in last 24 hours, and acting funny. No known trauma. . 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 - Social history:: Smoking status: unknown Patient uses street drugs, LSD, methylenedioxymethamphetamine. - Ebola Screening: : Patient denies travel to an Ebola-affected area in the 21 days before illness onset. - Family history:: not pertinent. - Hospitalizations: : No recent hospitalization is reported. ROS: 14:18 Unable to obtain ROS due to altered mental status. rn Exam: 14:18 Constitutional: This is a well developed, well nourished patient who is awake, seems rn intoxicated, opens eyes, otherwise does not follow commands Head/Face: Normocephalic, atraumatic. Eyes: Pupils dilated and equally reactive, no nystagmus ENT: dry MM Cardiovascular: Tachycardic, regular, no murmur Respiratory: + tachypnea with deep breathing, clear bilaterally Abdomen/GI: soft, non-tender MS/ Extremity: Pulses equal, no cyanosis. Neurovascular intact. Full, normal range of motion. Equal circumference. Neuro: Awake, does not follow commands, moving all 4 ext, non-communicative. No hyperreflexia Vital Signs: 13:44 BP 121 / 81; Pulse 113; Resp 30; Temp 98.6(TE); Pulse Ox 99% on R/A; Weight 56.7 kg tw2 (R); Height 5 ft. 5 in. (165.10 cm); Pain 0/10; 14:33 BP 120 / 67; Pulse 92; Resp 21; Pulse Ox 100% on R/A; tw2 15:37 BP 111 / 60; Pulse 99; Resp 16; Pulse Ox 100% on R/A; ph 16:26 BP 119 / 78; Pulse 100; Resp 16; Pulse Ox 99% on R/A; tw2 17:14 BP 114 / 71; Pulse 104; Resp 18; Pulse Ox 99% on R/A; ph 18:02 BP 118 / 72; Pulse 101; Resp 18; Temp 98.0; Pulse Ox 99% on R/A; ph 13:44 Body Mass Index 20.80 (56.70 kg, 165.10 cm) tw2 MDM: 13:38 Patient medically screened. rn 17:41 Differential diagnosis: Ingestion/exposure to LSD, ecstasy, and meth. Data reviewed: rn vital signs, nurses notes, lab test result(s), EKG, and as a result, I will discharge patient. Counseling: I had a detailed discussion with the patient and/or guardian regarding: the historical points, exam findings, and any diagnostic results supporting the discharge/admit diagnosis, lab results, the need for outpatient follow up, to return to the emergency department if symptoms worsen or persist or if there are any questions or concerns that arise at home. Response to treatment: the patient's symptoms have markedly improved after treatment, and as a result, I will discharge patient. Special discussion: I discussed with the patient/guardian in detail that at this point there is no indication for admission to the hospital. It is understood, however, that if the symptoms persist or worsen the patient needs to return immediately for re-evaluation. ED course: Pt now more alert, hydrated, ambulating to bathroom without difficulty or assistance, improved vitals, has a ride home, will dc home to sleep it off. NO sign of airway compromise, talking on phone, and tolerating PO. . 12/20 13:41 Order name: CBC with Diff; Complete Time: 14:07 rn 02/25 13:41 Order name: Basic Metabolic Panel; Complete Time: 14:14 rn 02/25 13:41 Order name: Urine Microscopic Only; Complete Time: 15:15 rn 02/25 13:41 Order name: Urine Drug Screen; Complete Time: 15:15 rn 02/25 14:07 Order name: ETOH Level; Complete Time: 16:36 rn 02/25 14:35 Order name: Urine Dipstick--Ancillary (enter results); Complete Time: 15:15 eb 02/25 13:41 Order name: IV Start; Complete Time: 15:07 rn 02/25 13:41 Order name: CT Head Brain wo Cont; Complete Time: 14:32 rn 02/25 13:41 Order name: EKG; Complete Time: 13:42 rn 02/25 14:35 Order name: Urine --Ancillary (enter results); Complete Time: 15:15 02/25 14:52 Order name: Urine Culture [facility] 02/25 13:41 Order name: Urine Test (obtain specimen); Complete Time: 15:07 rn 02/25 13:41 Order name: Urine Dipstick-Ancillary (obtain specimen); Complete Time: 15:07 rn 02/25 13:41 Order name: Glucose Level; Complete Time: 14:52 rn 02/25 13:41 Order name: EKG - Nurse/Tech; Complete Time: 14:52 rn Administered Medications: 13:45 Drug: NS 0.9% 1000 ml Route: IV; Rate: 1000 ml; Site: right antecubital; tw2 18:07 Follow up: Response: No adverse reaction; IV Status: Completed infusion; IV Intake: ph 1000ml 13:45 Drug: NS 0.9% 1000 ml Route: IV; Rate: 1000 ml; Site: right antecubital; tw2 18:08 Follow up: Response: No adverse reaction; IV Status: Completed infusion; IV Intake: ph 1000ml 13:46 Drug: Zofran 4 mg Route: IVP; Site: right antecubital; tw2 15:07 Follow up: Response: No adverse reaction ph Disposition: 02/25/19 17:43 Discharged to Home. Impression: Adverse effect of unspecified psychostimulants, Dehydration. - Condition is Stable. - Discharge Instructions: Dehydration, Adult, What You Need To Know About Illegal Drug Use and Dependence, Youth. - Medication Reconciliation Form, Thank You Letter, Antibiotic Education, Prescription Opioid Use form. - Follow up: Private Physician; When: As needed; Reason: Recheck today's complaints, Re-evaluation by your physician. - Problem is new. - Symptoms have improved. Signatures: Dispatcher [employer] EDMS Mesfin Brenner MD MD rn Hall, Patricia, RN RN Linda Bush RN RN tw2 Corrections: (The following items were deleted from the chart) 18:08 17:43 02/25/2019 17:43 Discharged to Home. Impression: Adverse effect of unspecified ph psychostimulants; Dehydration. Condition is Stable. Forms are Medication Reconciliation Form, Thank You Letter, Antibiotic Education, Prescription Opioid Use. Follow up: Private Physician; When: As needed; Reason: Recheck today's complaints, Re-evaluation by your physician. Problem is new. Symptoms have improved. rn
--- NOTE | 2019-02-25 17:44 | ER ---
Nurse's Notes [facility] Name: Mile Wang Age: 24 yrs Sex: Female : 1995 Arrival Date: 02/25/2019 Time: 13:38 Bed 3 Private MD: Diagnosis: Adverse effect of unspecified psychostimulants;Dehydration Presentation: 02/25 13:42 Presenting complaint: EMS states: call was for possible seizure, family reports to her tw2 doing 20 hits of ecstasy and LSD over the past 24 hours, tachycardic pt does not respond to painful stimuli and is non verbal at present time. Transition of care: patient was not received from another setting of care. Onset of symptoms was February 25, 2019. Risk Assessment: Do you want to hurt yourself or someone else? Patient reports no desire to harm self or others. Initial Sepsis Screen: Does the patient meet any 2 criteria? HR > 90 bpm. No. Patient's initial sepsis screen is negative. Does the patient have a suspected source of infection? No. Patient's initial sepsis screen is negative. Care prior to arrival: IV initiated. 20 GA, in the right antecubital area. 13:42 Method Of Arrival: EMS: [facility] tw2 13:42 Acuity: BAIRON 2 tw2 Triage Assessment: 13:45 General: Appears unkempt, Behavior is restless. Pain: Unable to use pain scale. Patient tw2 appears restless. 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 - Social history:: Smoking status: unknown Patient uses street drugs, LSD, methylenedioxymethamphetamine. - Ebola Screening: : Patient denies travel to an Ebola-affected area in the 21 days before illness onset. - Family history:: not pertinent. - Hospitalizations: : No recent hospitalization is reported. Screenin:56 Abuse screen: Denies injuries from another. Nutritional screening: No deficits noted. tw2 Tuberculosis screening: No symptoms or risk factors identified. Fall Risk None identified. Assessment: 13:54 Reassessment: pt crying and visibly upset, stating "there was nothing there, i dont tw2 want them to take my children, i dont want them to take them". 14:00 General: Appears in no apparent distress. uncomfortable, unkempt, Behavior is anxious, ph fussy, restless. Pain: Denies pain. Neuro: Level of Consciousness is awake, alert, Oriented to person, place, Pupils are dilated. Cardiovascular: Capillary refill < 3 seconds in bilateral fingers Patient's skin is warm and dry. Respiratory: Airway is patent Respiratory effort is even, unlabored, Respiratory pattern is regular, symmetrical. Derm: Skin is intact, Skin is pink, warm \\T\\ dry. Musculoskeletal: Circulation, motion, and sensation intact. Range of motion:. 14:32 Reassessment: Patient appears in no apparent distress at this time. Patient and/or tw2 family updated on plan of care and expected duration. Pain level reassessed. pt is not crying at this time. 15:20 Reassessment: Patient appears in no apparent distress at this time. Patient and/or tw2 family updated on plan of care and expected duration. Pain level reassessed. pts speech is clear and pt is able to get on bedside commode to urinate at this time. 16:25 Reassessment: Patient appears in no apparent distress at this time. Patient and/or tw2 family updated on plan of care and expected duration. Pain level reassessed. pts speech is easier to understand at this time. 17:13 Reassessment: Patient appears in no apparent distress at this time. Patient and/or ph family updated on plan of care and expected duration. Pain level reassessed. Pt awake and alert, talking on cell phone, VSS, will continue to monitor. 18:02 Reassessment: Patient appears in no apparent distress at this time. Patient and/or ph family updated on plan of care and expected duration. Pain level reassessed. Pt able to ambulate to restroom w/steady gait, also able to speak in full, comprehensible sentences, VSS, awaiting ride home for d/c. 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 ph Overdose: 14:33 Patient took LSD and XTC. ph Vital Signs: 13:44 BP 121 / 81; Pulse 113; Resp 30; Temp 98.6(TE); Pulse Ox 99% on R/A; Weight 56.7 kg tw2 (R); Height 5 ft. 5 in. (165.10 cm); Pain 0/10; 14:33 BP 120 / 67; Pulse 92; Resp 21; Pulse Ox 100% on R/A; tw2 15:37 BP 111 / 60; Pulse 99; Resp 16; Pulse Ox 100% on R/A; ph 16:26 BP 119 / 78; Pulse 100; Resp 16; Pulse Ox 99% on R/A; tw2 17:14 BP 114 / 71; Pulse 104; Resp 18; Pulse Ox 99% on R/A; ph 18:02 BP 118 / 72; Pulse 101; Resp 18; Temp 98.0; Pulse Ox 99% on R/A; ph 13:44 Body Mass Index 20.80 (56.70 kg, 165.10 cm) tw2 ED Course: 13:38 Patient arrived in ED. tw2 13:38 Mesfin Brenner MD is Attending Physician. rn 13:38 Bed in low position. Call light in reach. Side rails up X2. Seizure precautions tw2 initiated. signal person on. Pulse ox on. NIBP on. Warm blanket given. 13:44 Triage completed. tw2 13:45 Arm band placed on. tw2 13:49 Elvira Kilgore, RN is Primary Nurse. ph 14:18 CT Head Brain wo Cont In Process Unspecified. EDMS 14:18 EKG done, by sterilization tech. reviewed by Mesfin Brenner MD. at1 15:38 No provider procedures requiring assistance completed. IV discontinued, intact, ph bleeding controlled, No redness/swelling at site. Pressure dressing applied. Administered Medications: 13:45 Drug: NS 0.9% 1000 ml Route: IV; Rate: 1000 ml; Site: right antecubital; tw2 18:07 Follow up: Response: No adverse reaction; IV Status: Completed infusion; IV Intake: ph 1000ml 13:45 Drug: NS 0.9% 1000 ml Route: IV; Rate: 1000 ml; Site: right antecubital; tw2 18:08 Follow up: Response: No adverse reaction; IV Status: Completed infusion; IV Intake: ph 1000ml 13:46 Drug: Zofran 4 mg Route: IVP; Site: right antecubital; tw2 15:07 Follow up: Response: No adverse reaction ph Intake: 18:07 IV: 1000ml; Total: 1000ml. ph 18:08 IV: 1000ml; Total: 2000ml. ph Outcome: 17:43 Discharge ordered by . rn 18:08 Discharged to home ambulatory, with friend. ph 18:08 Condition: good 18:08 Discharge instructions given to patient, Instructed on discharge instructions, follow up and referral plans. Demonstrated understanding of instructions, follow-up care. 18:08 Patient left the ED. ph Signatures: Dispatcher [employer] EDMS Mesfin Brenner MD MD rn Candy Broderick, command and control specialist EKG Tat1 Elvira Kilgore RN RN ph Linda Bush RN RN tw2 Corrections: (The following items were deleted from the chart) 13:53 13:42 Presenting complaint: EMS states: call was for possible seizure, family reports tw2 to her doing 20 hits of ecstasy and LSD over the past 24 hours, vs stable. pt does not respond to painful stimuli and is non verbal at present time. tw2
[2019-02-25 21:38] VITALS: O2SAT 99
[2019-02-25 21:41] VITALS: BP 118/72; TEMP 98
== END 2019-02-25 18:08 | disposition home or self-care (01) ==
LOC: ER 13:35
DX: E86.0 Dehydration (principal); T43.641A Poisoning by ecstasy, accidental (unintentional), initial encounter; Y92.9 Unspecified place or not applicable; Z88.6 Allergy status to analgesic agent; F15.90 Other stimulant use, unspecified, uncomplicated; F19.90 Other psychoactive substance use, unspecified, uncomplicated
CPT/HCPCS: 96361; 93005; 87088; 85025; 87086; 80048; 36415; 80320; 81025; 80307 ×8; 70450; 96374; 99284; J7030; J2405; 81003; 81015

== ENCOUNTER 2019-05-18 15:32 | Emergency (ER) | payer OTHER ==
--- OUTSIDE RECORDS SUMMARY | 2019-05-18 15:42 | XMS REPORT ---
:1995 [facility] Organization [facility] Address [address] [place] [address] [address] [place] [address] Care Team Providers Name Role Phone Unavailable Unavailable Unavailable Problems This patient has no known problems. Allergies, Adverse Reactions, Alerts This patient has no known allergies or adverse reactions. Medications This patient has no known medications.
--- OUTSIDE RECORDS SUMMARY | 2019-05-18 15:42 | XMS REPORT | Summary of Care ---
:1995 Author Organization [facility] [employer] Address [address] [place] [address] Care Team Providers Name Role Phone Monique Nick 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 R, Vaginal discharge (Primary Dx); [facility] Venereal disease screening [address] [facility] [address] [facility] [address] [place] [address] [phone] Allergies No Known Allergiesdocumented as of this encounter (statuses as of 03/22/2019) Medications Medication Sig Dispensed Refills Start Date End Date Status sulfamethoxazole-trim Take 1 tablet by 20 tablet 0 06/04/2018 Active ethoprim 800-160 mg mouth every 12 per (twelve) hours. tabletIndications: Cellulitis of left upper extremity traMADOL (ULTRAM) 50 Take 1 tablet by 15 tablet 0 06/04/2018 Active mg tabletIndications: mouth every 6 (six) Cellulitis of left hours as needed for upper extremity Pain (scale 4-6). NUVARING 0.12-0.015 Insert 1 Each into 3 Each 3 06/21/2018 Active mg/24 hr vaginal vagina once every insertIndications: month. Insert Encounter for vaginally and leave counseling regarding in place for 3 contraception consecutive weeks, then remove for 1 week. documented as of this encounter (statuses as of 03/22/2019) Active Problems Problem Noted Date Routine follow-up 05/03/2018 Abnormal EKG 10/08/2017 History of seizure 08/19/2017 Over weight 08/19/2017 Bipolar affective disorder, remission status unspecified 07/15/2016 Seizure disorder 02/15/2016 Overview: Epilepsy x's 2 years. Had genetic counseling 01/18/16 per [facility].-see external records-page 20-21 documented as of this encounter (statuses as of 03/22/2019) Resolved Problems Problem Noted Date Resolved Date Spontaneous vaginal delivery 04/03/2018 05/03/2018 Maternal care for known or suspected placental 04/02/2018 05/03/2018 insufficiency, third trimester, not applicable or unspecified Seizure disorder during in third trimester 04/01/2018 05/03/2018 24 weeks gestation of 01/05/2018 04/01/2018 Supervision of high risk , antepartum 11/18/2017 05/03/2018 Seizure disorder during , antepartum 10/29/2017 04/01/2018 Dysuria 10/29/2017 05/03/2018 Seizure 10/19/2017 04/01/2018 Seizures 09/21/2017 04/01/2018 Seizure disorder during in first trimester 09/03/2017 04/01/2018 Mental disorder affecting , antepartum 09/03/2017 05/03/2018 Bipolar disease during , antepartum 09/03/2017 05/03/2018 Rh negative state in antepartum period 08/21/2017 05/03/2018 Susceptible to varicella (non-immune), currently 08/21/20172018 Overview: Address pp Multiparity 08/19/2017 05/03/2018 Supervision of high-risk 08/19/2017 05/03/2018 Vaginal discharge 09/08/2016 08/19/2017 Chlamydia 07/16/2016 08/19/2017 Well woman exam 07/15/2016 08/19/2017 Screening for STD (sexually transmitted disease) 07/15/2016 08/19/2017 Encounter for other contraceptive management 07/15/2016 08/19/2017 History of anxiety 07/15/2016 08/19/2017 Obesity, unspecified 07/15/2016 08/19/2017 care and examination of lactating mother 06/09/2016 10/15/2016 Marijuana smoker 05/20/2016 08/19/2017 37 weeks gestation of 05/16/2016 05/03/2018 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 Chlamydia infection affecting in third trimester, 05/15/20162016 antepartum High risk teen in third trimester 05/15/2016 06/09/2016 36 weeks gestation of 05/15/2016 05/22/2016 Supervision of high risk , antepartum, second 02/15/2016 06/09/2016 trimester Overview: Per external records 10/16/15: Blood Type: O neg Rh: neg Blood group antibody screen: negative HepB: neg Rubella: immune HGB/HCT: 13.0/40.4, repeat on 11/21/15 was 13.1/38.2 PLT: 253 HIV: neg GC/CT: neg Gardnerella: positive Trichomoniasis: neg Trisomy 18 & 21neg--done 01/02/16 MSAFP: neg Glucose: 96 Marijuana smoker 02/15/2016 02/16/2016 Family history of congenital anomalies 02/15/2016 06/09/2016 Overweight (BMI 25.0-29.9) 02/15/2016 06/09/2016 documented as of this encounter (statuses as of 03/22/2019) Immunizations Name Administration Dates Next Due HPV9 04/02/2018 (Deferred: - pt. states "I had then as a teenager.) Influenza Virus Vaccine Quad IM 3+ 12/14/2017, 03/27/2016 (Deferred: YRS Patient Refused) Rho (d) Immune Globulin 03/27/2016 TDAP (ADACEL) VACCINE 02/15/2018 Tdap 04/03/2016, 03/27/2016 (Deferred: Patient Refused) Varicella (varivax)(chicken pox) 05/24/2016 documented as of this encounter Social History Tobacco Use Types Packs/Day Years Used Date Never Smoker Smokeless Tobacco: Never Used Alcohol Use Drinks/Week oz/Week Comments No 0 Standard drinks or equivalent 0.0 Sex Assigned at Date Recorded Not on file Job Start Date Occupation Industry Not on file Not on file Not on file Travel History Travel Start Travel End No recent travel history available. documented as of this encounter Last Filed Vital Signs Vital Sign Reading Time Taken Comments Blood Pressure 139/81 03/21/2019 4:03 PM POSTAL SUPERINTENDENT Pulse 93 03/21/2019 4:03 PM POSTAL SUPERINTENDENT Temperature 37.3 C (99.2 F) 03/21/2019 4:03 PM POSTAL SUPERINTENDENT Respiratory Rate 16 03/21/2019 4:03 PM POSTAL SUPERINTENDENT Oxygen Saturation - - Inhaled Oxygen Concentration - - Weight 76.2 kg (168 lb 1 oz) 03/21/2019 4:03 PM POSTAL SUPERINTENDENT Height 162.6 cm (5' 4") 03/21/2019 4:03 PM POSTAL SUPERINTENDENT Body Mass Index 28.85 03/21/2019 4:03 PM POSTAL SUPERINTENDENT documented in this encounter Progress Notes Trever Garcia, INSURANCE ADJUSTOR - 03/21/2019 3:30 PM CST Chief complaint: Chief Complaint 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 Patient reports vaginal discharge and abdominal pain. Patient desires STD/STI testing today. Histories OB History Para Term AB Living 2 2 2 2 SAB TAB Ectopic Multiple Live Births 0 2 # Outcome Date GA Lbr Vick/2nd Weight Sex Delivery Anes PTL Lv 2 Term 04/02/18 37w1d 6 lb 10.2 oz (3.01 kg) M VAGINAL EPI, IV narcotic PEDRO 1 Term 05/23/16 38w0d 7 lb 9.7 oz (3.45 kg) F VAGINAL EPI PEDRO Comments: Maternal Age: 19; :1; Parity:1 Mother's Blood Type:O neg Baby's Blood Type:O neg, DEISY negative Maternal Serological Test:normal Maternal Group B Strep Screening:negative; Adequate Treatment:not applicable Complications:yes - THC, Chlamydia, Fx hx of congenital anomalies, maternal hx of depression and anxiety, Psuedoseziures-EpIliepsy x2 (On Keppra 500mg BID) Labor Complications:no OAE: passed Hepatitis B Vaccine:yes Problems:no Past Medical History: Diagnosis Date Anxiety ongoing Bipolar disorder Depression ongoing, not on meds Seizures 2012 seroquel, pt stopped taking meds due to Substance abuse Resolved per pt report Family History Problem Relation Age of Onset Depression Mother Psychiatry Mother Depression Father Diabetes Father High cholesterol Father Hypertension Father Psychiatry Father Depression Sister Depression Brother Genetic Brother autism Psychiatry Brother Depression Maternal Aunt Neurological Maternal Aunt Depression Maternal Uncle Depression Paternal Aunt Arthritis Maternal Grandmother Depression Maternal Grandmother Psychiatry Maternal Grandmother Arthritis Maternal Grandfather Depression Maternal Grandfather Psychiatry Maternal Grandfather Arthritis Paternal Grandmother Depression Paternal Grandmother Psychiatry Paternal Grandmother Arthritis Paternal Grandfather Depression Paternal Grandfather Psychiatry Paternal Grandfather Asthma NoFHx defects NoFHx Breast Cancer NoFHx Colon Cancer NoFHx Ovarian Cancer NoFHx Uterine Cancer NoFHx Cancer NoFHx Heart NoFHx Mental retardation NoFHx Osteoporosis NoFHx Family Status Relation Name Status Mo Alive Fa Alive Sis (Not Specified) Bro (Not Specified) MAunt (Not Specified) MUnc (Not Specified) PAunt (Not Specified) MGMo (Not Specified) MGFa (Not Specified) PGMo (Not Specified) PGFa (Not Specified) NoFHx (Not Specified) Past Surgical History: Procedure Laterality Date TONSILLECTOMY Social History Socioeconomic History Marital status: Single Spouse name: Not on file Number of children: 1 Years of education: 12 Highest education level: Not on file Occupational History 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 Social Needs Financial resource strain: Not on file Food insecurity: Worry: Not on file Inability: Not on file Transportation needs: Medical: Not on file Non-medical: Not on file Tobacco Use Smoking status: Never Smoker Smokeless tobacco: Never Used Substance and Sexual Activity Alcohol use: No Alcohol/week: 0.0 standard drinks Drug use: No Types: Marijuana Comment: last smoke greater than 3 months ago Sexual activity: Yes Partners: Male control/protection: None Comment: last sexual intercourse 03/28/2018 Lifestyle Physical activity: Days per week: Not on file Minutes per session: Not on file Stress: Not on file Relationships Social connections: Talks on phone: Not on file Gets together: Not on file Attends cheondoism service: Not on file Active member of club or organization: Not on file Attends meetings of clubs or organizations: Not on file Relationship status: Not on file Intimate partner violence: Fear of current or ex partner: Not on file Emotionally abused: Not on file Physically abused: Not on file Forced sexual activity: Not on file Other Topics Concern Service Not Asked Blood Transfusions No Caffeine Concern Not Asked Occupational Exposure Not Asked Hobby Hazards Not Asked Sleep Concern Not Asked Stress Concern Not Asked Weight Concern Not Asked Special Diet Not Asked Back Care Not Asked Exercise Not Asked Bike Helmet Not Asked Seat Belt Not Asked Self-Exams Not Asked Social History Narrative Pt denies current or past physical, sexual or emotional abuse. Pt feels safe at home. Buddhist preference none. No pets in the home. Patient lives at home with sister and children. Social History Substance and Sexual Activity Sexual Activity Yes Partners: Male control/protection: None Comment: last sexual intercourse 03/28/2018 Labs Labs are pending. Radiology No new radiology. Allergies Summer has No Known Allergies. Medications Summer has a current medication list which includes the following prescription(s ): nuvaring, sulfamethoxazole-trimethoprim, and tramadol. Review of Systems Eyes: Negative for visual disturbance. Cardiovascular: Negative for leg swelling. Gastrointestinal: Negative for abdominal pain, nausea and vomiting. Genitourinary: Positive for vaginal discharge. Negative for vaginal bleeding and pelvic pain. Neurological: Negative for headaches. BP 139/81 (BP Location: Right arm, Patient Position: Sitting, BP CUFF SIZE: Adult Medium) | Pulse 93 | Temp 37.3 C (99.2 F) (Oral) | Resp 16 | Ht 5 ' 4" (1.626 m) | Wt 168 lb 1 oz (76.2 kg) | BMI 28.85 kg/m Pregravid BMI: Could not be calculated Physical Exam Vitals reviewed. Constitutional: She is oriented to person, place, and time. She appears well- developed and well-nourished. Her body habitus is normal. Cardiovascular: Regular rate and rhythm. No peripheral edema present. Pulmonary/Chest: Normal inspiratory effort. Neuro/Psychiatric: Inappropriate mood and affect. She is oriented to person, place, and time. Skin: Skin normal. No lesion, no rash and no ulceration present. External genitalia: Normal external genitalia appropriate for age. Health And Physical Education Teacher present for the exam: Kristina Palmer RN Vagina:Normal vagina. Cervix: Normal cervix. Uterus: 6-8 cm Normal uterus Assessment/Plan Vaginal discharge (primary encounter diagnosis) Comment: See HPI Plan: [facility] ONLY - VAGINAL PATHOGENS BY DNA PROBE Venereal disease screening Comment: HPI Plan: GC & CHLAMYDIA AMPLIFIED ASSAY, [facility] ONLY - SYPHILIS IGG/IGM, HIV 1/2 AG-AB WITH REFLEX Return to clinic for WWE. Discussed treatment options. Medications as ordered. Reviewed patient instructions and provided printed copy. This visit did not involve counseling and coordination that comprised more than 50% of the visit time. KANDY Roberts 03/22/2019 8:50 AM documented in this encounter Plan of Treatment Name Type Priority Associated Diagnoses Date/Time [facility] ONLY - VAGINAL LAB Routine Vaginal discharge 03/21/2019 4:15 PM POSTAL SUPERINTENDENT PATHOGENS BY DNA PROBE GC & CHLAMYDIA AMPLIFIED LAB Routine Venereal disease 03/21/2019 4:15 PM POSTAL SUPERINTENDENT ASSAY screening [facility] ONLY - SYPHILIS LAB Routine Venereal disease 03/21/2019 4:15 PM POSTAL SUPERINTENDENT IGG/IGM screening Health Maintenance Due Date Last Done Comments MENINGOCOCCAL B VACCINES (1 2007 of 2 - Risk Bexsero 2-dose series) HPV VACCINES (1 - Female 01/25/2008 2-dose series) VARICELLA VACCINES (2 of 2 - 06/21/2016 05/24/2016 13+ 2-dose series) INFLUENZA VACCINE (#1) 2018 12/14/2017 CHLAMYDIA SCREENING 08/21/2019 08/20/2018, 05/27/2018, 08/19/2017, Additional history exists PAP SMEAR 05/27/2021 05/27/2018 DTaP,Tdap,and Td Vaccines (3 02/16/2028 02/15/2018, 04/03/2016 - Td) MENINGOCOCCAL VACCINE Aged Out No longer eligible based on patient's age to complete this topic PNEUMOCOCCAL 0-64 YEARS Aged Out No longer eligible COMBINED SERIES based on patient's age to complete this topic documented as of this encounter Procedures Procedure Name Priority Date/Time Associated Diagnosis Comments HIV 1/2 AG-AB WITH Routine 03/21/2019 4:15 PM Venereal disease Results for this REFLEX POSTAL SUPERINTENDENT screening procedure are in the results section. documented in this encounter Results HIV 1/2 AG-AB WITH REFLEX (03/21/2019 4:15 PM POSTAL SUPERINTENDENT) HIV 1/2 Ag-Ab with Negative Negative [facility]lex [facility] HIV Semi-quantitative 0.06 [facility] Specimen Blood Narrative Performed At Non-reactive for HIV-1 antigen and HIV-1/HIV-2 antibodies. [facility] No laboratory evidence of HIV infection. Repeat in 2-4 weeks if acute HIV infection is suspected. Performing Organization Address City/State/Zipcode Phone Number [facility] CLIA: [id number], [address] [place] [address] [facility] documented in this encounter Visit Diagnoses Diagnosis Vaginal discharge - Primary Leukorrhea, not specified as infective Venereal disease screening Screening examination for venereal disease documented in this encounter Insurance Payer Benefit Plan / Subscriber ID Effective Phone Address Type Group Dates [facility] xxxxxxxxx 2017-Imani [address] Medicaid Andela - Andela [id number] MANAGED MEDICAID [place], [place] MED[place] [phone] documented as of this encounter Advance Directives Name Relationship Healthcare Agent Relationship Communication Maya Alvarez Mother Primary healthcare agent
--- OUTSIDE RECORDS SUMMARY | 2019-05-18 15:42 | XMS REPORT | Summary of Care ---
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 D/C/STD Testing Encounter Details Date Type Department Care Team Description [facility], Vaginal discharge (Primary Dx); [facility] Venereal disease screening [address] [facility] [address] [facility] [address] [place] [address] [phone] Allergies No Known Allergiesdocumented as of this [...] Comments Blood Pressure 139/81 03/21/2019 4:03 PM ABSTRACT CHECKER Pulse 93 03/21/2019 4:03 PM ABSTRACT CHECKER Temperature 37.3 C (99.2 F) 03/21/2019 4:03 PM ABSTRACT CHECKER Respiratory Rate 16 03/21/2019 4:03 PM ABSTRACT CHECKER Oxygen Saturation - - Inhaled Oxygen Concentration - - Weight 76.2 kg (168 lb 1 oz) 03/21/2019 4:03 PM ABSTRACT CHECKER Height 162.6 cm (5' 4") 03/21/2019 4:03 PM ABSTRACT CHECKER Body Mass Index 28.85 03/21/2019 4:03 PM ABSTRACT CHECKER documented in this encounter Progress Notes Trever Garcia, ASTROPHYSICS PROFESSOR - 03/21/2019 3:30 PM CST Chief complaint: Chief Complaint 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 Pt feels safe at home. Scientology preference none. No pets in the home. [...] genitalia: Normal external genitalia appropriate for age. [employer] Machine Set Up Operator present for the exam: Kristina Palmer RN [...] LAB Routine Vaginal discharge 03/21/2019 4:15 PM ABSTRACT CHECKER PATHOGENS BY DNA PROBE GC & CHLAMYDIA AMPLIFIED LAB Routine Venereal disease 03/21/2019 4:15 PM ABSTRACT CHECKER ASSAY screening [facility] ONLY - SYPHILIS LAB Routine Venereal disease 03/21/2019 4:15 PM ABSTRACT CHECKER IGG/IGM screening Health Maintenance Due Date Last [...] PM Venereal disease Results for this REFLEX ABSTRACT CHECKER screening procedure are in the results section. documented in this encounter Results HIV 1/2 AG-AB WITH REFLEX (03/21/2019 4:15 PM ABSTRACT CHECKER) HIV 1/2 Ag-Ab with Negative Negative [facility] HIV Semi-quantitative 0.06 [facility] Specimen Blood Narrative Performed At Non-reactive for HIV-1 antigen and HIV-1/HIV-2 antibodies. [facility] No laboratory evidence of HIV infection. Repeat in 2-4 weeks if acute HIV infection is suspected. Performing Organization Address City/State/Zipcode Phone Number [facility] CLIA: [id number], [address] [place] [address] [phone] [facility] documented in this encounter Visit Diagnoses Diagnosis Vaginal discharge - Primary Leukorrhea, not specified as infective Venereal disease screening Screening examination for venereal disease documented in this encounter Insurance Payer Benefit Plan / Subscriber ID Effective Phone Address Type Group Dates [facility] xxxxxxxxx 2017-Imani [address] Medicaid [employer] [id number] MANAGED MEDICAID [place], [place] [phone] documented as of this encounter Advance Directives Name Relationship Healthcare Agent Relationship Communication Maya Alvarez Mother Primary healthcare agent
--- OUTSIDE RECORDS SUMMARY | 2019-05-18 15:43 | XMS REPORT | Summary of Care ---
:1995 Author Organization [facility] [employer] Address [address] [place] [address] Care Team Providers Name Role Phone Monique Nick RFID TECHNICIAN Primary Care Provider Reason for Visit Reason Comments Abnormal Lab Chlamydia Encounter Details Date Type Department Care Team Description 03/22/2019 Telephone [facility]- Trever Garcia, Abnormal Lab [facility] (Chlamydia) [address] [facility] [address] [place], [place] [phone] Allergies No Known Allergiesdocumented as of this encounter (statuses as of 03/22/2019) Medications Medication Sig Dispensed Refills Start Date End Date Status sulfamethoxazole-tri Take 1 tablet by 20 tablet 0 06/04/2018 Active methoprim 800-160 mg mouth every 12 per (twelve) hours. tabletIndications: Cellulitis of left upper extremity traMADOL (ULTRAM) 50 Take 1 tablet by 15 tablet 0 06/04/2018 Active mg mouth every 6 tabletIndications: (six) hours as Cellulitis of left needed for Pain upper extremity (scale 4-6). NUVARING 0.12-0.015 Insert 1 Each into 3 Each 3 06/21/2018 Active mg/24 hr vaginal vagina once every insertIndications: month. Insert Encounter for vaginally and counseling regarding leave in place for contraception 3 consecutive weeks, then remove for 1 week. azithromycin 500 mg Take 2 tablets by 2 tablet 0 03/22/2019 03/23/2019 Active tabletIndications: mouth daily for 1 Chlamydia day. documented as of this encounter (statuses as [...] of this encounter Last Filed Vital Signs Not on filedocumented in this encounter Plan of Treatment Health Maintenance Due Date Last Done Comments [...] this topic documented as of this encounter Results Not on filedocumented in this encounter Visit Diagnoses Diagnosis Chlamydia - Primary Other specified chlamydial infection, in conditions classified elsewhere and of unspecified site documented in this encounter Insurance Payer Benefit Plan / Subscriber ID Effective Phone Address Type Group [facility]ITY xxxxxxxxx 2017-Pre [address] Medicaid HEALTH [employer] HEALTH CHOICE sent [id number] - MANAGED [place]ICA[place], [place] [address] BEACON BEACON [id number] 2017-Pre [phone] [facility] sent [phone] [facility] , MANAGED [address] [place] [address] documented as of this encounter Advance Directives Name Relationship Healthcare Agent Relationship Communication Maya Alvarez Mother Primary healthcare agent
--- OUTSIDE RECORDS SUMMARY | 2019-05-18 15:43 | XMS REPORT | Summary of Care ---
:1995 Author Organization [facility] [email or web address] Address [address] [place] [address] Care Team Providers Name Role Phone Monique Nick SOFTWARE ARCHITECT Primary Care Provider Reason for Visit Reason Comments Abnormal Lab Chlamydia Encounter Details Date Type Department Care Team Description 03/22/2019 Telephone [facility]- Trever Garcia, Abnormal Lab [facility] (Chlamydia) [address] [facility] [address] [place], [place] [phone] Allergies No Known Allergiesdocumented as of this encounter (statuses as of 03/23/2019) Medications Medication Sig Dispensed Refills Start Date [...] as of this encounter (statuses as of 03/23/2019) Active Problems Problem Noted Date Routine follow-up 05/03/2018 Abnormal EKG 10/08/2017 History of seizure 08/19/2017 Over weight 08/19/2017 Bipolar affective disorder, remission status unspecified 07/15/2016 Seizure disorder 02/15/2016 Overview: Epilepsy x's 2 years. Had genetic counseling 01/18/16 per [facility].-see external records-page 20-21 documented as of this encounter (statuses as of 03/23/2019) Resolved Problems Problem Noted Date Resolved Date [...] as of this encounter (statuses as of 03/23/2019) Immunizations Name Administration Dates Next Due HPV9 [...] filedocumented in this encounter Plan of Treatment Date Type Specialty Care Team Description 06/22/2019 Third Mate Visit [facility], [facility] Health Maintenance Due Date Last Done Comments MENINGOCOCCAL B VACCINES (1 2007 of 2 - Risk Bexsero 2-dose series) HPV VACCINES (1 - Female 01/25/2008 2-dose series) VARICELLA VACCINES (2 of 2 - 06/21/2016 05/24/2016 13+ 2-dose series) INFLUENZA VACCINE (#1) 2018 12/14/2017 CHLAMYDIA SCREENING 03/21/2020 03/21/2019, 08/20/2018, 05/27/2018, Additional history exists PAP SMEAR 05/27/2021 05/27/2018 [...] ID Effective Phone Address Type Group Dates [facility] xxxxxxxxx 2017-Pre [address] Medicaid HEALTH [employer] HEALTH CHOICE sent [id number] - MANAGED [place], [place] [address] BEACON BEACON [id number] 2017-Pre [phone] [facility]al [facility] BEHAVIORAL sent [phone] [facility] , MANAGED [address] [place] [address] documented as of this encounter Advance Directives Name Relationship Healthcare Agent Relationship Communication Maya Alvarez Mother Primary healthcare agent
--- OUTSIDE RECORDS SUMMARY | 2019-05-18 15:43 | XMS REPORT | Summary of Care ---
:1995 Author Organization [facility] Address [address] [place] [address] Care Team Providers Name Role Phone Moniqeu Nick [facility] Primary Care Provider Reason for Visit Reason Comments Rx Concern/Question Encounter Details Date Type Department Care Team Description 03/29/2019 Telephone [facility] Garcia, Rx Concern/ Question [facility] [address] [facility] [address] [place] [address] [place], [place] [id number] Allergies No Known Allergiesdocumented as of this encounter (statuses as of 03/29/2019) Medications Medication Sig Dispensed Refills Start Date [...] as of this encounter (statuses as of 03/29/2019) Active Problems Problem Noted Date Routine follow-up 05/03/2018 Abnormal EKG 10/08/2017 History of seizure 08/19/2017 Over weight 08/19/2017 Bipolar affective disorder, remission status unspecified 07/15/2016 Seizure disorder 02/15/2016 Overview: Epilepsy x's 2 years. Had genetic counseling 01/18/16 per [facility]see external records-page 20-21 documented as of this encounter (statuses as of 03/29/2019) Resolved Problems Problem Noted Date Resolved Date [...] as of this encounter (statuses as of 03/29/2019) Immunizations Name Administration Dates Next Due HPV9 [...] Date Type Specialty Care Team Description 06/22/2019 Special Agent Visit [facility] Health Maintenance Due Date Last Done Comments [...] Results Not on filedocumented in this encounter Insurance Payer Benefit Plan / Subscriber ID Effective Phone Address Type Group [facility] COMMUNITY COMMUNITY xxxxxxxxx 2017-Pre [address] Medicaid HEALTH CHOICE HEALTH CHOICE sent [id number] - MANAGED [place], [place] [address] [place]ON BEACON [id number] 2017-Pre [phone] [facility] sent [phone] [facility] , MANAGED [address] [place] [address] documented as of this encounter Advance Directives Name Relationship Healthcare Agent Relationship Communication Maya Alvarez Mother Primary healthcare agent
--- OUTSIDE RECORDS SUMMARY | 2019-05-18 15:44 | XMS REPORT | Summary of Care ---
:1995 Author Organization [facility] Address [address] [place] [address] Care Team Providers Name Role Phone Eddie Rosas Primary Care Provider Reason for Referral (Routine) Status Reason Specialty Diagnoses / Referred By Referred To Procedures Contact Contact New Request PN-NEUROLOGY Diagnoses Seizures [place], Procedures Discharge Follow-Up: Specialty Service PN-NEUROLOGY ; 2 Days PAC [address] [address] Reason for Visit Reason Comments Seizures Auth/Cert Status Reason Specialty Diagnoses / Referred By Referred To Procedures Contact Contact [facility] [address] [place] [address] [place] [address] Encounter Details Date Type Department Care Team Description 04/20/2019 Emergency [facility] Department [place], Seizure (Primary Dx); [address] [place] [address] Dr [place] [address] [address] [phone] [id number] [place] [address] Allergies Active Allergy Reactions Severity Noted Date Comments Doxycycline Other - See comments 04/20/2019 seizures Tramadol Other - See comments 04/20/2019 seizures documented as of this encounter (statuses as of 04/20/2019) Medications Medication Sig Dispensed Refills Start Date [...] consecutive weeks, then remove for 1 week. levETIRAcetam Take 2 tablets by 60 tablet 0 04/20/2019 Active (KEPPRA) 750 mg mouth 2 (two) times tabletIndications: daily. Seizures documented as of this encounter (statuses as of 04/20/2019) Active Problems Problem Noted Date Routine follow-up 05/03/2018 Abnormal EKG 10/08/2017 History of seizure 08/19/2017 Over weight 08/19/2017 Bipolar affective disorder, remission status unspecified 07/15/2016 Seizure disorder 02/15/2016 Overview: Epilepsy x's 2 years. Had genetic counseling 01/18/16 per [facility]see external records-page 20-21 documented as of this encounter (statuses as of 04/20/2019) Resolved Problems Problem Noted Date Resolved Date [...] as of this encounter (statuses as of 04/20/2019) Immunizations Name Administration Dates Next Due HPV9 [...] Sign Reading Time Taken Comments Blood Pressure 134/76 04/20/2019 11:06 AM BINITROTOLUENE OPERATOR Pulse 112 04/20/2019 11:06 AM BINITROTOLUENE OPERATOR Temperature 37.3 C (99.2 F) 04/20/2019 11:06 AM BINITROTOLUENE OPERATOR Respiratory Rate 18 04/20/2019 11:06 AM BINITROTOLUENE OPERATOR Oxygen Saturation 98% 04/20/2019 11:06 AM BINITROTOLUENE OPERATOR Inhaled Oxygen Concentration - - Weight 81.6 kg (180 lb) 04/20/2019 11:06 AM BINITROTOLUENE OPERATOR Height - - Body Mass Index 30.9 03/21/2019 4:03 PM BINITROTOLUENE OPERATOR documented in this encounter Discharge Instructions AttachmentsThe following attachments cannot be sent through Care Everywhere.Seizure, Recurrent (Adult) (Filipino)documented in this encounter Plan of Treatment Date Type Specialty Care Team Description 06/22/2019 Last Remodeler Repairer Visit [facility], [facility] Health Maintenance Due Date Last Done [...] encounter Procedures Procedure Name Priority Date/Time Associated Comments Diagnosis POCT TEST Routine 04/20/2019 1:21 Seizures Results for this PM BINITROTOLUENE OPERATOR procedure are in the results section. ADC / [facility] - DRUG STAT 04/20/2019 1:20 Seizures Results for this SCREEN TRIAGE PM BINITROTOLUENE OPERATOR procedure are in the results section. URINALYSIS STAT 04/20/2019 1:20 Seizures Results for this PM BINITROTOLUENE OPERATOR procedure are in the results section. CBC WITH DIFFERENTIAL STAT 04/20/2019 11:45 Seizures Results for this AM BINITROTOLUENE OPERATOR procedure are in the results section. CBC WITH DIFFERENTIAL Routine 04/20/2019 11:45 Seizures Results for this AM BINITROTOLUENE OPERATOR procedure are in the results section. COMP. METABOLIC PANEL STAT 04/20/2019 11:45 Seizures Results for this (89077) AM BINITROTOLUENE OPERATOR procedure are in the results section. LIPASE STAT 04/20/2019 11:45 Seizures Results for this AM BINITROTOLUENE OPERATOR procedure are in the results section. documented in this encounter Results POCT Test (04/20/2019 1:21 PM BINITROTOLUENE OPERATOR) POCT PREG negative On board controls acceptable present with C Line POCT PREG LOT # [id number] POCT PREG TEST DATE Specimen Urine - URINE, CLEAN CATCH ADC / LCC - DRUG SCREEN TRIAGE (04/20/2019 1:20 PM BINITROTOLUENE OPERATOR) BENZO U Negative Negative [facility] VALERIE U Negative Negative [facility] AMPHET Negative Negative [facility] THC Negative Negative [facility] METHADONE Negative Negative [facility] Meth U Negative Negative [facility] OPIATES Negative Negative [facility] Cocaine Metabolite Negative Negative [facility] PROPOXY Negative Negative [facility] Tric U Negative Negative [facility] PCP Negative Negative [facility] OXYCOD Negative Negative [facility] Specimen Urine - URINE, CLEAN CATCH Narrative Performed At Urine Drug Cutoff Ranges [facility] Benzodiazepines: 150 ng/mL Barbiturates: 200 ng/mL Amphetamine: 500 ng/mL Cannabinoids: 50 ng/mL Methadone: 200 ng/mL Methamphetamine: 500 ng/mL Opiates: 100 ng/mL or 2000 ng/mL Cocaine: 150 ng/mL Propoxyphene: 300 ng/mL Tricyclics: 300 ng/mL Oxycodone: 100 ng/mL PCP: 25 ng/mL The results are to be used only for medical (i.e., treatment) purposes. Unconfirmed screening results must not be used for non-medical purposes (e.g., employment testing, legal testing). Performing Organization Address [facility] Phone Number [facility] CLIA: [id number], [address] [place] [address] Urinalysis (04/20/2019 1:20 PM BINITROTOLUENE OPERATOR) APPEARANCE Clear Clear [facility] COLOR Straw (A) Yellow [facility] PH 8.0 4.8 - 8.0 [facility] SP GRAVITY 1.011 1.003 - 1.030 [facility] GLU U QUAL Normal Normal [facility] BLOOD Negative Negative [facility] KETONES Negative Negative [facility] PROTEIN Negative Negative [facility] UROBILIN Normal Normal [facility] BILIRUBIN Negative Negative [facility] NITRITE Negative Negative [facility] LEUK WILBERT Negative Negative [facility] RBC/HPF 1 0 - 3 HPF [facility] WBC/HPF <1 0 - 5 HPF [facility] BACTERIA Negative Negative [facility] SQ EPITH 6 HPF [facility] Specimen Urine - URINE, CLEAN CATCH Performing Organization Address [facility] Phone Number [facility] CLIA: [id number], [address] [place] [address] CBC WITH DIFFERENTIAL (04/20/2019 11:45 AM BINITROTOLUENE OPERATOR) WBC 9.56 4.30 - 11.10 [facility] 10*3/L [facility] RBC 4.90 3.93 - 5.25 [facility] 10*6/L HOSPITAL LABORATORY HGB 13.7 11.6 - 15.0 g/dL [facility] HCT 43.2 35.7 - 45.2 % [facility] MCV 88.2 80.6 - 95.5 fL [facility] MCH 28.0 25.9 - 32.8 pg [facility] MCHC 31.7 31.6 - 35.1 g/dL [facility] RDW-SD 40.2 39.0 - 49.9 fL [facility] RDW-CV 12.4 12.0 - 15.5 % [facility] PLT 264 166 - 358 [facility] 10*3/L [facility] MPV 10.4 9.5 - 12.9 fL [facility] NRBC/100 WBC 0.0 0.0 - 10.0 /100 [facility] WBCs [facility] NRBC x10^3 <0.01 10*3/L [facility] GRAN MAT (NEUT) % 62.6 % [facility] IMM GRAN % 0.60 % [facility] LYMPH % 27.3 % [facility] MONO % 7.2 % [facility] EOS % 1.9 % [facility] BASO % 0.4 % [facility] GRAN MAT x10^3(ANC) 5.98 1.88 - 7.09 [facility] 10*3/uL HOSPITAL LABORATORY IMM GRAN x10^3 0.06 0.00 - 0.06 [facility] 10*3/uL HOSPITAL LAB[facility]ORY LYMPH x10^3 2.61 1.32 - 3.29 [facility] 10*3/uL HOSPITAL LAB[facility]ORY MONO x10^3 0.69 0.33 - 0.92 [facility] 10*3/uL HOSPITAL LAB[facility]ATORY EOS x10^3 0.18 0.03 - 0.39 [facility] 10*3/uL HOSPITAL LAB[facility]ATORY BASO x10^3 0.04 0.01 - 0.07 [facility] 10*3/uL HOSPITAL LABORATORY Specimen Blood - VENOUS Performing Organization Address City/State/Zipcode Phone Number [facility] CLIA: [id number], [address] [place] [address] Lipase, Serum (04/20/2019 11:45 AM BINITROTOLUENE OPERATOR) LIPASE 44 0 - 220 U/L [facility] Specimen Blood - VENOUS Performing Organization Address City/State/Zipcode Phone Number [facility] CLIA: [id number], [address] [place] [address] Complete Metabolic Panel (04/20/2019 11:45 AM BINITROTOLUENE OPERATOR) NA 141 135 - 145 [facility] mmol/L [facility] K 4.3 3.5 - 5.0 [facility] mmol/L [facility] CL 104 98 - 108 mmol/L [facility] CO2 TOTAL 25 23 - 31 mmol/L [facility] AGAP 12 2 - 16 [facility] BUN 13 7 - 23 mg/dL [facility] GLUCOSE 95 70 - 110 mg/dL [facility] CREATININE 0.68 0.50 - 1.04 [facility] mg/dL [facility] TOTAL BILI 0.3 0.1 - 1.1 mg/dL [facility] CALCIUM 10.2 8.6 - 10.6 [facility] mg/dL [facility] T PROTEIN 7.6 6.3 - 8.2 g/dL [facility] ALBUMIN 5.1 (H) 3.5 - 5.0 g/dL [facility] ALK PHOS 79 34 - 122 U/L [facility] ALTv 13 5 - 35 U/L [facility] AST(SGOT) 21 13 - 40 U/L [facility] eGFR Calculation 108.2 mL/min/1.73m2 [facility] [place]) eGFR Calculation 131.1 mL/min/1.73m2 [facility] () [facility] Specimen Blood - VENOUS Narrative Performed At Association of Glomerular Filtration Rate (GFR) [facility] and Staging of Kidney Disease* + + +- + | GFR (mL/min/1.73 m2) | With Kidney Damage | Without Kidney Damage + + +- + | >90 | Stage one | Normal + + +- + | 60-89 | Stage two | Decreased GFR + + +- + | 30-59 | Stage three | Stage three + + +- + | 15-29 | Stage four | Stage four + + +- + | <15 (or dialysis) | Stage five | Stage five + + +- + *Each stage assumes the associated GFR level has been in effect for at least three months. Stages 1 to 5, with or without kidney disease, indicate chronic kidney disease. Notes: Determination of stages one and two (with eGFR >59mL/min/1.73 m2) requires estimation of kidney damage for at least three months as defined by structural or functional abnormalities of the kidney, manifested by either: Pathological abnormalities or Markers of kidney damage (including abnormalities in the composition of the blood or urine or abnormalities in imaging tests). Performing Organization Address City/State/Zipcode Phone Number [facility] CLIA: [id number], [address] [place] [address] documented in this encounter Visit Diagnoses Diagnosis Seizure - Primary Other convulsions Seizures Other convulsions documented in this encounter Administered Medications Medication Order MAR Action Action Date Dose Rate Site levETIRAcetam (KEPPRA) tablet Given 04/20/2019 1:20 PM BINITROTOLUENE OPERATOR 1,500 mg 1,500 mg 1,500 mg, Oral, ONCE, 1 dose, 04/20/19 at 1415, Routine documented in this encounter Insurance Payer Benefit Plan / Subscriber ID Effective Phone Address Type Group Dates [facility] xxxxxxxxx 2017-Prese [address] Medicaid HEALTH CHOICE - [employer] [id number] MANAGED MEDICAID [place], [place] [phone] documented as of this encounter Advance Directives Name Relationship Healthcare Agent Relationship Communication Maya Alvarez Mother Primary healthcare agent
--- OUTSIDE RECORDS SUMMARY | 2019-05-18 15:44 | XMS REPORT | Summary of Care ---
:1995 Author Organization [facility] Address [address] [place] [id number] Care Team Providers Name Role Phone Eddie Rosas Primary Care Provider Reason for Visit Reason Comments CATALYST IMPREGNATOR problem Encounter Details Date Type Department Care Team Description 05/17/2019 Office Visit [facility]- Monique Nick, Dysuria ( Primary Dx); [facility] History of chlamydia; [address] Abnormal urinalysis; [place], [place] Need for HPV vaccination [id number] [place], [place] [address] Allergies Active Allergy Reactions Severity Noted Date Comments Doxycycline Other - See comments 04/20/2019 seizures Tramadol Other - See comments 04/20/2019 seizures documented as of this encounter (statuses as of 05/17/2019) Medications Medication Sig Dispensed Refills Start Date End Date Status levETIRAcetam Take 2 tablets 60 tablet 0 04/20/2019 Active (KEPPRA) 750 mg by mouth 2 (two) tabletIndications: times daily. Seizures Nitrofurantoin&Nit Take 1 capsule 14 capsule 0 05/17/2019 Active . Macrocryst by mouth 2 (two) 0 (MACROBID) 100 mg times daily for capsuleIndications 7 days. : Dysuria, Abnormal urinalysis sulfamethoxazole-t Take 1 tablet by 20 tablet 0 06/04/2018 Discontinued rimethoprim mouth every 12 0 800-160 mg per (twelve) hours. tabletIndications: Cellulitis of left upper extremity traMADOL (ULTRAM) Take 1 tablet by 15 tablet 0 06/04/2018 Discontinued 50 mg mouth every 6 0 tabletIndications: (six) hours as Cellulitis of left needed for Pain upper extremity (scale 4-6). NUVARING Insert 1 Each 3 Each 3 06/21/2018 Discontinued 0.12-0.015 mg/24 into vagina once 0 hr vaginal every month. insertIndications: Insert vaginally Encounter for and leave in counseling place for 3 regarding consecutive contraception weeks, then remove for 1 week. documented as of this encounter (statuses as of 05/17/2019) Active Problems Problem Noted Date Abnormal EKG 10/08/2017 History of seizure 08/19/2017 Over weight 08/19/2017 Bipolar affective disorder, remission status unspecified 07/15/2016 Seizure disorder 02/15/2016 Overview: Epilepsy x's 2 years. Had genetic counseling 01/18/16 per [place] [facility].-see external records-page 20-21 documented as of this encounter (statuses as of 05/17/2019) Resolved Problems Problem Noted Date Resolved Date Routine follow-up 05/03/2018 05/17/2019 Spontaneous vaginal delivery 04/03/2018 05/03/2018 Maternal care [...] as of this encounter (statuses as of 05/17/2019) Immunizations Name Administration Dates Next Due HPV9 05/17/2019, 04/02/2018 (Deferred: - pt. states "I had [...] Sign Reading Time Taken Comments Blood Pressure 127/68 05/17/2019 1:28 PM CDT Pulse 75 05/17/2019 1:28 PM CDT Temperature 36.9 C (98.4 F) 05/17/2019 1:28 PM CDT Respiratory Rate 16 05/17/2019 1:28 PM CDT Oxygen Saturation - - Inhaled Oxygen Concentration - - Weight 79.6 kg (175 lb 9 oz) 05/17/2019 1:28 PM CDT Height 162.6 cm (5' 4") 05/17/2019 1:28 PM CDT Body Mass Index 30.14 05/17/2019 1:28 PM CDT documented in this encounter Progress Notes Monique Nick, CORE FINISHER - 05/17/2019 1:30 PM CDT Chief complaint: Chief Complaint Patient presents with CATALYST IMPREGNATOR problem URINARY TRACT INFECTION Patient presents to clinic today with complaints of dysuria and frequency. Patient denies flank painor hematuria. This is a new problem. The current episode started yesterday. The problem has been gradually worsening since onset. The pain is moderate. Patient describes pain as burning. There has been no fever. Pertinent negatives include no abdominal pain or fever. She has tried nothing for the symptoms.She is sexually active. Her past medical history is significant for STDs. 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 Pt feels safe at home. Restorationism preference none. No pets in the home. Patient lives at home with sister and children. Social History Substance and Sexual Activity Sexual Activity Yes Partners: Male control/protection: None Comment: last sexual intercourse 03/28/2018 Labs I have reviewed the patient's labs. and Labs are pending. Results for [facility]STIANA[facility] ( ) as of 05/17/2019 13:45 Ref. Range 05/17/2019 13:32 POCT PH U Latest Ref Range: 5 - 8 mg/dl 8 POCT U GLU Latest Ref Range: Negative - Negative negative POCT U BLD Latest Ref Range: Negative - Negative about 250 POCT U KETONE Latest Ref Range: Negative - Negative negative POCT U PROT Latest Ref Range: Negative - Negative 2+ POCT U NIT Latest Ref Range: Negative - Negative negative POCT U LEUK EST Latest Ref Range: Negative - Negative 2+ Radiology No new radiology. Allergies Summer is allergic to doxycycline and tramadol. Medications Summer has a current medication list which includes the following prescription(s ): nitrofurantoin&nit. macrocryst and levetiracetam. Review of Systems Constitutional: Negative. Negative for fever. Gastrointestinal: Negative. Negative for abdominal pain. Genitourinary: Positive for dysuria and frequency. Negative for bladder incontinence, hematuria and vaginal discharge. BP 127/68 (BP Location: Right arm, Patient Position: Sitting, BP CUFF SIZE: Adult Medium) | Pulse 75 | Temp 36.9 C (98.4 F) (Oral) | Resp 16 | Ht 5 ' 4" (1.626 m) | Wt 175 lb 9 oz (79.6 kg) | BMI 30.14 kg/m Pregravid BMI: Could not be calculated Physical Exam Vitals reviewed. Constitutional: She is oriented to person, place, and time. She appears well- developed and well-nourished. Pulmonary/Chest: Normal inspiratory effort. Abdominal: There is no CVA tenderness. Neuro/Psychiatric: She has a normal mood and affect. She is oriented to person, place, and time. Assessment/Plan 1. Dysuria - POCT URINALYSIS W/O SPECIFIC GRAVITY - URINE CULTURE - Nitrofurantoin&Nit. Macrocryst (MACROBID) 100 mg capsule; Take 1 capsule by mouth 2 (two) times daily for 7 days. Dispense: 14 capsule; Refill: 0 2. History of chlamydia HAILEE today - GC & CHLAMYDIA AMPLIFIED ASSAY 3. Abnormal urinalysis UA with +blood, leuk estrase and protein, will treat empirically for UTI. Recommend increased water intake and reviewed hygiene. Urine culture pending. - Nitrofurantoin&Nit. Macrocryst (MACROBID) 100 mg capsule; Take 1 capsule by mouth 2 (two) times daily for 7 days. Dispense: 14 capsule; Refill: 0 4. Need for HPV vaccination Administered today. VSS provided. - GARDASIL 9 (HPV 9V) VACCINE; Standing - GARDASIL 9 (HPV 9V) VACCINE Return to clinic in 4 weeks. Discussed treatment options. Medications as ordered. Reviewed patient instructions and provided printed copy. This visit did not involve counseling and coordination that comprised more than 50% of the visit time. documented in this encounter Plan of Treatment Date Type Specialty Care Team Description 06/22/2019 Senior Oracle Applications Developer Visit [facility] 06/22/2019 Office Visit [facility] Monique Rabia, CORE FINISHER [address] [address] [phone] Name Type Priority Associated Diagnoses Date/Time URINE CULTURE LAB Routine Dysuria 05/17/2019 1:32 PM CDT GC & CHLAMYDIA AMPLIFIED LAB Routine History of chlamydia 05/17/2019 1:32 PM CDT ASSAY Name Type Priority Associated Diagnoses Order Schedule GARDASIL 9 (HPV 9V) IMMUNIZATION/IN Routine Need for HPV 3 Occurrences VACCINE JECTION vaccination starting 05/17/2019 until 11/15/2020, 1 completed Health Maintenance Due Date Last Done Comments HPV VACCINES (2 - Female 06/14/2019 05/17/2019 3-dose series) CHLAMYDIA SCREENING 03/21/2020 03/21/2019, 08/20/2018, 05/27/2018, Additional history exists INFLUENZA VACCINE (#1) 2020 12/14/2017 Postponed from 11/07/2018 (Refused) MENINGOCOCCAL B VACCINES (1 05/22/2020 Postponed from of 2 - Risk Bexsero 2-dose 2007 (Insurance series) / Financial) PAP SMEAR 05/27/2021 05/27/2018 DTaP,Tdap,and Td Vaccines 02/16/2028 02/15/2018, 04/03/2016 (3 - Td) VARICELLA VACCINES Discontinued 05/24/2016 MENINGOCOCCAL VACCINE Aged Out No longer eligible based on patient's age to complete this topic PNEUMOCOCCAL 0-64 YEARS Aged Out No longer eligible COMBINED SERIES based on patient's age to complete this topic documented as of this encounter Procedures Procedure Name Priority Date/Time Associated Diagnosis Comments GARDASIL 9 (HPV 9V) Routine 05/17/2019 1:42 Need for HPV VACCINE PM CDT vaccination POCT URINALYSIS W/O Routine 05/17/2019 1:32 Dysuria Results for this SPECIFIC GRAVITY PM CDT procedure are in the results section. documented in this encounter Results POCT URINALYSIS W/O SPECIFIC GRAVITY (05/17/2019 1:32 PM CDT) POCT PH U 8 5 - 8 mg/dl POCT U LEUK EST 2+ Negative - Negative POCT U NIT negative Negative - Negative POCT U PROT 2+ Negative - Negative POCT U GLU negative Negative - Negative POCT U KETONE negative Negative - Negative POCT U BLD about 250 Negative - Negative Specimen Urine - URINE, CLEAN CATCH documented in this encounter Visit Diagnoses Diagnosis Dysuria - Primary History of chlamydia Personal history of other infectious and parasitic disease Abnormal urinalysis Other nonspecific finding on examination of urine Need for HPV vaccination Need for prophylactic vaccination and inoculation against other viral diseases documented in this encounter Insurance Payer Benefit Plan / Subscriber ID Effective Phone Address Type Group Dates [facility] xxxxxxxxx 2017-[address]se [address] Medicaid HEALTH CHOICE - HEALTH [employer] [id number] MANAGED MEDICAID [place], [place]ICA[place] [id number] documented as of this encounter Advance Directives Name Relationship Healthcare Agent Relationship Communication Maya Alvarez Mother Primary healthcare agent
--- OUTSIDE RECORDS SUMMARY | 2019-05-18 15:45 | XMS REPORT | Summary of Care ---
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 Pt feels safe at home. Congregational preference none. No pets in the home. Patient lives at home with sister and children. Social History Substance and Sexual Activity Sexual Activity Yes Partners: Male control/protection: None Comment: last sexual intercourse 03/28/2018 Labs I have reviewed the patient's labs. and Labs are pending. Results for [facility] ( ) as of 05/17/2019 13:45 Ref. [...] Date Type Specialty Care Team Description 06/22/2019 Optical Engineering Technician Visit [facility] 06/22/2019 Office Visit [facility] Monique Rabia, DERMATOLOGIST AND DERMATOPATHOLOGIST [address] [place] [address] [phone] Name Type Priority Associated Diagnoses Date/Time URINE [...] ID Effective Phone Address Type Group Dates [facility] x[place] 2017-Prese [address] Medicaid HEALTH CHOICE - HEALTH [employer] [id number] MANAGED MEDICAID [place], [place] MED[place] [id number] documented as of this encounter Advance Directives Name Relationship Healthcare Agent Relationship Communication Maya Alvarez Mother Primary healthcare agent
--- NOTE | 2019-05-18 19:48 | ER ---
Nurse's Notes [facility] Name: Mile Wang Age: 24 yrs Sex: Female : 1995 Arrival Date: 05/18/2019 Time: 15:35 Bed 10 Private MD: Diagnosis: Acute pharyngitis Presentation: 05/17 16:19 Chief complaint: Patient states: sore throat that started last night and got worse dm5 today. Over the counter meds have not helped. Coronavirus screen: The patient has NOT traveled to a country currently being monitored by the [facility] within the last 14 days. Proceed with normal triage procedures. The patient has NOT had contact with any known and/or suspected case of coronavirus. Proceed with normal triage procedures. Ebola Screen: Patient negative for fever greater than or equal to 101.5 degrees Fahrenheit, and additional compatible Ebola Virus Disease symptoms Patient denies exposure to infectious person. Patient denies travel to an Ebola-affected area in the 21 days before illness onset. No symptoms or risks identified at this time. Initial Sepsis Screen: Does the patient meet any 2 criteria? No. Patient's initial sepsis screen is negative. Does the patient have a suspected source of infection? No. Patient's initial sepsis screen is negative. Risk Assessment: Do you want to hurt yourself or someone else? Patient reports no desire to harm self or others. 16:19 Method Of Arrival: Ambulatory dm5 16:19 Acuity: BAIRON 4 dm5 Screenin:40 Abuse screen: Denies threats or abuse. Nutritional screening: No deficits noted. bb Tuberculosis screening: No symptoms or risk factors identified. Fall Risk None identified. Assessment: 19:40 General: Appears in no apparent distress. Behavior is calm, cooperative. Pain: bb Complains of pain in throat. Neuro: Level of Consciousness is awake, alert, obeys commands, Oriented to person, place, time, situation. Cardiovascular: No deficits noted. Respiratory: Airway is patent Respiratory effort is even, unlabored. EENT: Throat is reddened. Derm: Skin is pink, warm \T\ dry. Musculoskeletal: Circulation, motion, and sensation intact. 20:15 Reassessment: Patient is alert, oriented x 3, equal unlabored respirations, skin bb warm/dry/pink. pt verbalized understanding of and agrees to plan of care discharge instructions given pt ambulated with steady gait to exit. Vital Signs: 16:19 Pain 8/10; dm5 16:19 BP 121 / 71; Pulse 89; Resp 18; Temp 98.5; Pulse Ox 100% on R/A; Weight 79.38 kg (R); dm5 Height 5 ft. 4 in. (162.56 cm); Pain 8/10; 20:00 BP 119 / 65 RA Sitting (auto/reg); Pulse 90 MON; Resp 16 S; Temp 98.7(O); Pulse Ox 100% ds4 on R/A; Pain 8/10; 16:19 Body Mass Index 30.04 (79.38 kg, 162.56 cm) dm5 ED Course: 15:35 Patient arrived in ED. ag5 16:22 Triage completed. dm5 17:56 Mich Krueger FNP-C [facility] la1 17:56 Ton Bond MD is Attending Physician. la1 19:40 Patient has correct armband on for positive identification. bb 19:40 No provider procedures requiring assistance completed. Patient did not have IV access bb during this emergency room visit. Administered Medications: No medications were administered Outcome: 19:47 Discharge ordered by . la1 20:16 Discharged to home ambulatory. bb 20:16 Condition: stable 20:16 Discharge instructions given to patient, Instructed on discharge instructions, follow up and referral plans. medication usage, Demonstrated understanding of instructions, follow-up care, medications, Prescriptions given X 1. 20:16 Patient left the ED. bb Signatures: Cordelia Colby RN RN dm5 Radha Miller RN RN bb Swanson, Donovan ds4 Mich Krueger FNP-C FNP-Billy Alexis ag5
--- NOTE | 2019-05-18 19:48 | EDPHYS ---
Physician Documentation [facility] Name: Mile Wang Age: 24 yrs Sex: Female : 1995 Arrival Date: 05/18/2019 Time: 15:35 Bed 10 Private MD: ED Physician Ton Bond HPI: 05/17 19:45 This 24 yrs old Female presents to ER via Ambulatory with complaints of Sore la1 Throat, Headache. 19:45 The patient presents with sore throat. The patient describes throat pain as raw, la1 scratchy. Onset: The symptoms/episode began/occurred yesterday. Severity of symptoms: At their worst the symptoms were mild. Modifying factors: The symptoms are alleviated by nothing, the symptoms are aggravated by foods, swallowing. Associated signs and symptoms: The patient has no apparent associated signs or symptoms. The patient has not experienced similar symptoms in the past. ROS: 19:45 Constitutional: Negative for fever, chills, and weight loss, Eyes: Negative for injury, la1 pain, redness, and discharge, ENT: sore throat Neck: Negative for injury, pain, and swelling, Cardiovascular: Negative for chest pain, palpitations, and edema, Respiratory: Negative for shortness of breath, cough, wheezing, and pleuritic chest pain, Abdomen/GI: Negative for abdominal pain, nausea, vomiting, diarrhea, and constipation, MS/Extremity: Negative for injury and deformity, Skin: Negative for injury, rash, and discoloration, Neuro: Negative for headache, weakness, numbness, tingling, and seizure. Exam: 19:45 Constitutional: This is a well developed, well nourished patient who is awake, alert, la1 and in no acute distress. Head/Face: Normocephalic, atraumatic. Eyes: Pupils equal round and reactive to light, extra-ocular motions intact. Neck: Trachea midline. 19:45 Respiratory: No increased work of breathing Skin: Warm, dry with normal turgor. Normal color with no rashes, no lesions, and no evidence of cellulitis. 19:45 ENT: TM's: are normal, Nose: is normal, Mouth: is normal, Posterior pharynx: erythema, that is mild. Vital Signs: 16:19 Pain 8/10; dm5 16:19 BP 121 / 71; Pulse 89; Resp 18; Temp 98.5; Pulse Ox 100% on R/A; Weight 79.38 kg (R); dm5 Height 5 ft. 4 in. (162.56 cm); Pain 8/10; 20:00 BP 119 / 65 RA Sitting (auto/reg); Pulse 90 MON; Resp 16 S; Temp 98.7(O); Pulse Ox 100% ds4 on R/A; Pain 8/10; 16:19 Body Mass Index 30.04 (79.38 kg, 162.56 cm) dm5 MDM: 19:33 Patient medically screened. [facility] 19:46 Data reviewed: vital signs, nurses notes, lab test result(s), and as a result, I will la1 discharge patient. Data interpreted: Pulse oximetry: on room air is 99 %. Interpretation: normal. Counseling: I had a detailed discussion with the patient and/or guardian regarding: the historical points, exam findings, and any diagnostic results supporting the discharge/admit diagnosis, lab results, the need for outpatient follow up, a family practitioner, to return to the emergency department if symptoms worsen or persist or if there are any questions or concerns that arise at home. Special discussion: I discussed with the patient/guardian that the patient's current presentation does not indicate dosing of antibiotics. They should follow-up with their primary care provider and return if the symptoms persist or progress. 05/17 16:22 Order name: Flu 5 05/17 16:22 Order name: Strep 5 05/17 17:06 Order name: Throat Culture EDMS Administered Medications: No medications were administered Disposition: 05/18 07:06 Co-signature as Attending Physician, Ton Bond MD I agree with the assessment and kdr plan of care. Disposition: 05/18/19 19:47 Discharged to Home. Impression: Acute pharyngitis. - Condition is Stable. - Discharge Instructions: Pharyngitis, Sore Throat, [id number]. - Prescriptions for Medrol (Neal) 4 mg Oral Tablets, Dose Pack - take 1 tablet by ORAL route as directed - follow package instructions; 1 packet. - Medication Reconciliation Form, Thank You Letter form. - Follow up: Private Physician; When: 2 - 3 days; Reason: Recheck today's complaints, Re-evaluation by your physician. - Problem is new. - Symptoms have improved. Signatures: Dispatcher [employer] EDZen Aldana MD MD cha Rittger, Kevin, MD MD kdr Ballard, Brenda, RN RN Mich Ospina, KANDY-C FIELD PIPELINES SUPERVISOR-Cla1 Corrections: (The following items were deleted from the chart) 05/17 20:16 19:47 05/18/2019 19:47 Discharged to Home. Impression: Acute pharyngitis. Condition is bb Stable. Forms are Medication Reconciliation Form, Thank You Letter, Antibiotic Education, Prescription Opioid Use. Follow up: Private Physician; When: 2 - 3 days; Reason: Recheck today's complaints, Re-evaluation by your physician. Problem is new. Symptoms have improved. la1
[2019-05-18 20:49] VITALS: O2SAT 100
[2019-05-18 20:51] VITALS: BP 119/65; TEMP 98.7
== END 2019-05-18 20:16 | disposition home or self-care (01) ==
LOC: ER 15:32
DX: J02.9 Acute pharyngitis, unspecified (principal)
CPT/HCPCS: 87070; 87081; 87804; 99282

== ENCOUNTER 2019-12-14 18:39 | Emergency (ER) | payer OTHER ==
--- NOTE | 2019-12-14 20:34 | ER ---
Nurse's Notes [facility] Name: Mile Wang Age: 24 yrs Sex: Female : 1995 Arrival Date: 12/14/2019 Time: 18:47 Bed 19 Private MD: Diagnosis: Acute upper respiratory infection, unspecified Presentation: 12/13 18:59 Chief complaint: Patient states: Chills, body aches, sore throat, headache, fatigue, ca1 cough and congestion x 2 days. Denies N/V, fever. Coronavirus screen: Client denies travel out of the [place] in the last 14 days. chills, congestion, cough unrelated to allergies, fatigue, headache, muscle pain, sore throat, Client presents with at least one sign or symptom that may indicate coronavirus-19. Standard/surgical mask placed on the client. Provider contacted for isolation considerations. Ebola Screen: Patient negative for fever greater than or equal to 101.5 degrees Fahrenheit, and additional compatible Ebola Virus Disease symptoms Patient denies exposure to infectious person. Patient denies travel to an Ebola-affected area in the 21 days before illness onset. No symptoms or risks identified at this time. Initial Sepsis Screen: Does the patient meet any 2 criteria? No. Patient's initial sepsis screen is negative. Does the patient have a suspected source of infection? No. Patient's initial sepsis screen is negative. Risk Assessment: Do you want to hurt yourself or someone else? Patient reports no desire to harm self or others. Onset of symptoms was December 14, 2019. 18:59 Method Of Arrival: Ambulatory ca1 18:59 Acuity: BAIRON 4 ca1 Triage Assessment: 20:56 Pain: Also complains of. bb3 20:58 Headache History: Denies prior headaches. General: Appears in no apparent distress. bb3 Pain: Complains of pain in body aches. 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 - Social history:: Smoking status: Patient denies any tobacco usage or history of. Screenin:56 Fall Risk None identified. bb3 20:57 Nutritional screening: No deficits noted. Tuberculosis screening: No symptoms or risk bb3 factors identified. 20:59 Abuse screen: none. bb3 Assessment: 19:34 General: Appears in no apparent distress. comfortable, well nourished, Behavior is bb3 calm, cooperative, appropriate for age, Reports chills for feeling ill for fatigue for body aches. Pain: Complains of pain in reportd body aches all over Pain currently is 7 out of 10 on a pain scale. Quality of pain is described as aching, Pain began 2-3 days ago. Neuro: No deficits noted. Cardiovascular: No deficits noted. Respiratory: No deficits noted. GI: No deficits noted. 20:54 Reassessment: Patient appears in no apparent distress at this time. No changes from bb3 previously documented assessment. Patient and/or family updated on plan of care and expected duration. Pain level reassessed. Patient is alert, oriented x 3, equal unlabored respirations, skin warm/dry/pink. Vital Signs: 18:59 BP 122 / 75; Pulse 91; Resp 15 S; Temp 99.4(O); Pulse Ox 99% on R/A; Weight 83.91 kg ca1 (R); Height 5 ft. 3 in. (160.02 cm) (R); 19:40 BP 115 / 63; Pulse 91; Resp 17; Temp 99.4; Pulse Ox 99% ; Weight 83.91 kg; Height 5 ft. bb3 3 in. (160.02 cm); Pain 7/10; 20:52 BP 95 / 48; Pulse 82; Resp 17; Temp 97.8; Pulse Ox 98% ; bb3 19:40 Body Mass Index 32.77 (83.91 kg, 160.02 cm) bb3 Vitals: 19:40 Cardiac Rhythm Assessment Regular. bb3 ED Course: 18:47 Patient arrived in ED. ag5 19:02 Triage completed. ca1 19:03 Arm band placed on right wrist. ca1 19:19 Baljeet Abraham PA is PHCP. jr8 19:19 Mesfin Brenner MD is Attending Physician. jr8 20:03 COVID-19 Sent. bb3 20:03 Influenza Screen (a \T\ B) Sent. bb3 20:15 COVID-19 Sent. bb3 20:15 Influenza Screen (a \T\ B) Sent. bb3 20:58 Bed in low position. Call light in reach. Side rails up X 1. desk monitor on. Pulse bb3 ox on. 20:59 No provider procedures requiring assistance completed. Patient did not have IV access bb3 during this emergency room visit. Administered Medications: No medications were administered Outcome: 20:33 Discharge ordered by . mariana 20:51 Patient left the ED. bb3 20:57 Discharged to home ambulatory. bb3 20:57 Condition: unchanged 20:57 Discharge instructions given to patient, Instructed on discharge instructions, follow up and referral plans. medication usage. Addendum: 12/16/2019 14:53 Addendum: COVID-19 Result: Positive result giiven to ED physician to notify pt. s s Physician was able to contact pt and pt was notified of positive COVID-19 swab result. Physician answered pt questions. Signatures: Beverley Holland RN RN Baljeet Shay PA PA jrSophia Turcios RN RN [facility] Billy Salmeron ag5 Patricia Lagunas bb3
--- NOTE | 2019-12-14 20:34 | EDPHYS ---
Physician Documentation [facility] Name: Mile Wang Age: 24 yrs Sex: Female : 1995 Arrival Date: 12/14/2019 Time: 18:47 Bed 19 Private MD: ED Physician Mesfin Brenner HPI: 12/13 19:23 This 24 yrs old Female presents to ER via Ambulatory with complaints of jr8 Headache, Cough, Body Aches. 19:23 Patient presents with 3 day history of cough, sore throat, body aches, headache, jr8 fatigue. Denies sick contacts . Severity of symptoms: At their worst the symptoms were mild in the emergency department the symptoms are unchanged. The patient has not experienced similar symptoms in the past. The patient has not recently seen a physician. 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 - Social history:: Smoking status: Patient denies any tobacco usage or history of. ROS: 19:23 Eyes: Negative for injury, pain, redness, and discharge, Neck: Negative for injury, jr8 pain, and swelling, Cardiovascular: Negative for chest pain, palpitations, and edema, Abdomen/GI: Negative for abdominal pain, nausea, vomiting, diarrhea, and constipation, Back: Negative for injury and pain, MS/Extremity: Negative for injury and deformity, Skin: Negative for injury, rash, and discoloration. 19:23 Constitutional: Positive for body aches, fatigue. 19:23 ENT: Positive for sore throat. 19:23 Respiratory: Positive for cough, Negative for dyspnea on exertion, shortness of breath, sputum production, wheezing. 19:23 Neuro: Positive for headache. Exam: 19:23 Eyes: Pupils equal round and reactive to light, extra-ocular motions intact. Lids and jr8 lashes normal. Conjunctiva and sclera are non-icteric and not injected. Cornea within normal limits. Periorbital areas with no swelling, redness, or edema. ENT: Nares patent. No nasal discharge, no septal abnormalities noted. Tympanic membranes are normal and external auditory canals are clear. Oropharynx with no redness, swelling, or masses, exudates, or evidence of obstruction, uvula midline. Mucous membranes moist. Neck: Trachea midline, no thyromegaly or masses palpated, and no cervical lymphadenopathy. Supple, full range of motion without nuchal rigidity, or vertebral point tenderness. No Meningismus. Cardiovascular: Regular rate and rhythm with a normal S1 and S2. No gallops, murmurs, or rubs. Normal PMI, no JVD. No pulse deficits. Respiratory: Lungs have equal breath sounds bilaterally, clear to auscultation and percussion. No rales, rhonchi or wheezes noted. No increased work of breathing, no retractions or nasal flaring. Abdomen/GI: Soft, non-tender, with normal bowel sounds. No distension or tympany. No guarding or rebound. No evidence of tenderness throughout. Back: No spinal tenderness. No costovertebral tenderness. Full range of motion. Skin: Warm, dry with normal turgor. Normal color with no rashes, no lesions, and no evidence of cellulitis. MS/ Extremity: Pulses equal, no cyanosis. Neurovascular intact. Full, normal range of motion. Neuro: Awake and alert, GCS 15, oriented to person, place, time, and situation. Cranial nerves II-XII grossly intact. Motor strength 5/5 in all extremities. Sensory grossly intact. Cerebellar exam normal. Normal gait. Vital Signs: 18:59 BP 122 / 75; Pulse 91; Resp 15 S; Temp 99.4(O); Pulse Ox 99% on R/A; Weight 83.91 kg ca1 (R); Height 5 ft. 3 in. (160.02 cm) (R); 19:40 BP 115 / 63; Pulse 91; Resp 17; Temp 99.4; Pulse Ox 99% ; Weight 83.91 kg; Height 5 ft. bb3 3 in. (160.02 cm); Pain 7/10; 20:52 BP 95 / 48; Pulse 82; Resp 17; Temp 97.8; Pulse Ox 98% ; bb3 19:40 Body Mass Index 32.77 (83.91 kg, 160.02 cm) bb3 MDM: 19:20 Patient medically screened. jr8 20:34 Data reviewed: vital signs, nurses notes, lab test result(s), and as a result, I will jr8 discharge patient. Data interpreted: Pulse oximetry: on room air is 99 %. Interpretation: normal. Counseling: I had a detailed discussion with the patient and/or guardian regarding: the historical points, exam findings, and any diagnostic results supporting the discharge/admit diagnosis, lab results, the need for outpatient follow up, a family practitioner, to return to the emergency department if symptoms worsen or persist or if there are any questions or concerns that arise at home. 12/13 19:23 Order name: Influenza Screen (a \T\ B); Complete Time: 20:35 jr8 12/13 19:23 Order name: COVID-19 jr8 Administered Medications: No medications were administered Disposition: 12/14 07:14 Co-signature as Attending Physician, Mesfin Brenner MD. rn Disposition: 12/14/19 20:33 Discharged to Home. Impression: Acute upper respiratory infection, unspecified. - Condition is Stable. - Discharge Instructions: Antibiotic Resistance, Viral Respiratory Infection. - Prescriptions for Prednisone 20 mg Oral Tablet - take 1 tablet by ORAL route once daily for 5 days; 5 tablet. Tessalon Perles 100 mg Oral Capsule - take 1 capsule by ORAL route every 8 hours As needed; 15 capsule. - Medication Reconciliation Form, Thank You Letter, Antibiotic Education, Prescription Opioid Use form. - Follow up: Private Physician; When: As needed; Reason: Recheck today's complaints, Continuance of care, Re-evaluation by your physician. - Problem is new. - Symptoms have improved. Signatures: Dispatcher [employer] EDMesfin Hernandez MD MD rn Roszak, Josh, PA PA jr8 Sophia Gómez RN RN ca1 Borel, Brandy bb3 Corrections: (The following items were deleted from the chart) 12/13 20:51 20:33 12/14/2019 20:33 Discharged to Home. Impression: Acute upper respiratory bb3 infection, unspecified. Condition is Stable. Forms are Medication Reconciliation Form, Thank You Letter, Antibiotic Education, Prescription Opioid Use. Follow up: Private Physician; When: As needed; Reason: Recheck today's complaints, Continuance of care, Re-evaluation by your physician. Problem is new. Symptoms have improved. jr8
[2019-12-14 20:58] VITALS: TEMP 99.4; O2SAT 99
[2019-12-14 20:59] VITALS: BP 115/63
--- OUTSIDE RECORDS SUMMARY | 2019-12-15 22:32 | XMS REPORT | Clinical Summary ---
:1995 Author Organization [facility] Address [address] [place] [address] Care Team Providers Name Role Phone Asked, No Pcp Primary Care Provider Unavailable Allergies No Known Active Allergies Medications Not on file Active Problems Not on file Encounters Date Type Specialty Care Team Description 01/02/2019 Emergency Emergency Medicine Preet Olivia Al coholic intoxication without complication (HCC) (Primary Dx); MD Seizure (HCC); Hypokalemia; Dehydration after 12/13/2018 Medical History Medical History Date Comments Seizures (HCC) Social History Tobacco Use Types Packs/Day Years Used Date Never Smoker Smokeless Tobacco: Never Used Sex Assigned at Date Recorded Not on file Last Filed Vital Signs Vital Sign Reading Time Taken Comments Blood Pressure 110/58 01/02/2019 10:14 AM CDT Pulse 90 01/02/2019 10:14 AM CDT Temperature 36.9 C (98.5 F) 01/02/2019 1:21 AM CDT Respiratory Rate 20 01/02/2019 10:14 AM CDT Oxygen Saturation 98% 01/02/2019 10:14 AM CDT Inhaled Oxygen Concentration - - Weight 81.6 kg (180 lb) 01/02/2019 1:21 AM CDT Height 170.2 cm (5' 7") 01/02/2019 1:21 AM CDT Body Mass Index 28.19 01/02/2019 1:21 AM CDT Plan of Treatment Health Maintenance Due Date Last Done Comments CHLAMYDIA SCREENING 2013 CERVICAL CANCER SCREENING 2018 INFLUENZA VACCINE 10/08/2019 Procedures Procedure Name Priority Date/Time Associated Comments Diagnosis LACTIC ACID LEVEL Routine 01/02/2019 4:02 Result s for this AM CDT procedure are i n the results section. URINE DRUGS OF ABUSE STAT 01/02/2019 3:04 Res ults for this SCREEN AM CDT procedure are i n the results section. URINALYSIS SCREEN AND STAT 01/02/2019 3:04 Re sults for this MICROSCOPY, WITH REFLEX AM CDT proc edure are in TO CULTURE the results section. URINE CULTURE STAT 01/02/2019 3:04 Results fo r this AM CDT procedure are i n the results section. CT HEAD WO CONTRAST STAT 01/02/2019 2:18 Resu lts for this AM CDT procedure are i n the results section. CREATINE KINASE, TOTAL STAT 01/02/2019 1:38 R esults for this (CPK) AM CDT procedure are i n the results section. ESTIMATED GFR STAT 01/02/2019 1:30 Results fo r this AM CDT procedure are i n the results section. SALICYLATE LEVEL STAT 01/02/2019 1:30 Results for this AM CDT procedure are i n the results section. ACETAMINOPHEN LEVEL STAT 01/02/2019 1:30 Resu lts for this AM CDT procedure are i n the results section. OSMOLALITY, SERUM STAT 01/02/2019 1:30 Result s for this AM CDT procedure are i n the results section. HCG QUALITATIVE, SERUM STAT 01/02/2019 1:30 R esults for this SCREEN AM CDT procedure are i n the results section. ALCOHOL LEVEL, BLOOD STAT 01/02/2019 1:30 Res ults for this AM CDT procedure are i n the results section. COMPREHENSIVE METABOLIC STAT 01/02/2019 1:30 Results for this PANEL AM CDT procedure are i n the results section. PROTHROMBIN TIME WITH STAT 01/02/2019 1:30 Re sults for this INR AM CDT procedure are i n the results section. PARTIAL THROMBOPLASTIN STAT 01/02/2019 1:30 R esults for this TIME (PTT) AM CDT procedure are i n the results section. HC COMPLETE BLD COUNT STAT 01/02/2019 1:30 Re sults for this W/AUTO DIFF AM CDT procedure are i n the results section. ECG 12-LEAD STAT 01/02/2019 1:26 Results for this AM CDT procedure are i n the results section. ECG ED PRELIMINARY Routine 01/02/2019 1:20 Resul ts for this INTERPRETATION AM CDT procedure are in the results section. after 12/13/2018 Results Lactic acid level (01/02/2019 4:02 AM CDT) Pathologist Sig nature Lactic acid 1.8 0.5 - 2.2 mmol/L [facility] Specimen Plasma specimen Performing Organization Address [facility] Phon e Number [facility] DEPARTMENT OF PATHOLOGY AND [address] [place] [address] [facility] MEDICINE [facility] [address] [place] [address] Urinalysis screen and microscopy, with reflex to culture (01/02/2019 3:04 AM CDT) Specimen site Catheterized [facility] Color, UA Straw [facility] Appearance, UA Clear [facility] Specific gravity, UA 1.009 1.001 - 1.035 [facility] pH, UA 6.0 5.0 - 8.5 [facility] Protein, UA Negative Negative [facility] Glucose, UA Negative Negative [facility] Ketones, UA Negative Negative [facility] Bilirubin, UA Negative Negative [facility] Blood, UA Negative Negative [facility] Nitrite, UA Negative Negative [facility] Urobilinogen, UA Negative <2.0 [facility] Leukocyte esterase, Negative Negative [facility] Epithelial cells, UA Few Few /HPF [facility] WBC, UA 0-5 0 - 4 /HPF [facility] RBC, UA 0-5 0 - 5 /HPF [facility] Bacteria, UA None seen None seen [facility] Yeast, UA None seen [facility] Yeast with None seen [facility] pseudohyphae, UA [facility] Specimen Urine Performing Organization Address City/[facility] Phon e Number [facility] DEPARTMENT OF PATHOLOGY AND [address] [place] [address] [facility] MEDICINE [facility] [address] [place] [address] Urine drugs of abuse screen (01/02/2019 3:04 AM CDT) Amphetamine screen, Negative [place] urine [facility] Methamphetamine Negative [place] screen, urine [facility] Barbiturate screen, Negative [place] urine [facility] Benzodiazepine Negative [place] screen, urine [facility] Cocaine screen, urine Negative [facility] Methadone screen, Negative [place] urine [facility] Opiates screen, urine Negative [facility] Phencyclidine screen, Negative [place] urine [facility] Tricyclic screen, Negative [place] urine [facility] Cannabinoid screen, Negative [place] urine Comment: [facility] Drug screen minimum concentration of detectability [facility] Amphetamines 1000 ng/mL Methamphetamines 1000 ng/mL Barbiturates 300 ng/mL Benzodiazepines 300 ng/mL Cocaine 300 ng/mL Methadone 300 ng/mL Opiates 300 ng/mL Phencyclidine 25 ng/mL Cannabinoids 50 ng/mL Tricyclics 1000 ng/mL Negative test results indicates presumptive evidence o f lack of clinically significant drug concentration in this u rine specimen. Positive test results are presumptive evidence of clin ically significant drug concentration in this urine specimen. Testing performed for medical purposes only. Specimen Urine Performing Organization Address [facility] Phon e Number [facility] DEPARTMENT OF PATHOLOGY AND [address] [place] [address] Urine culture (01/02/2019 3:04 AM CDT) Pathologist Sig nature Urine culture SEE COMMENTComment: [facility] Bacteriuria screen [facility] negative. Specimen Urine Performing Organization Address [facility] Phon e Number [facility] DEPARTMENT OF PATHOLOGY AND [address] [place] [address] Head Wo Contrast (01/02/2019 2:18 AM CDT) Specimen Narrative Performed At EXAMINATION: CT HEAD WO CONTRAST [facility] CLINICAL HISTORY: seizure COMPARISON: None. TECHNIQUE: Noncontrast images of the brain were obtain ed from the skull base to the vertex. Both soft tissue and bone reconstr uction algorithms were performed. CT scans are performed using radiation dose reduction techniques (iterative reconstruction and/or automated exposure co ntrol). Technical factors are evaluated and adjusted to ensure appropria te moderation of exposure. Automated dose identity management consultant nology is applied to adjust radiation exposure while achievi ng a diagnostic quality image. FINDINGS: The brain parenchyma is unremarkable. The lee-white m atter differentiation is preserved. No evidence of acute int ra or extra-axial hemorrhage, mass, mass effect or acute territorial inf arction. There is no acute hydrocephalus. Basal cisterns a re patent. No acute soft tissue hematoma or laceration. No skull fractures or aggressive bony lesions. Paranasal sinuses and mastoid air cells are clear. Orbits are normal. IMPRESSION: No acute intracranial abnormality identi fied. [facility]-[id number] Procedure Note Hm Interface, Radiology Results Incoming - 01/02/2019 2:22 AM CDT EXAMINATION: CT HEAD WO CONTRAST CLINICAL HISTORY: seizure COMPARISON: None. TECHNIQUE: Noncontrast images of the bra in were obtained from the skull base to the vertex. Both soft tissue and bone reconstruction algorithms were performed. CT scans are performed using radiation d ose reduction techniques (iterative reconstruction and/or automated exposure control). Technical factors are evaluated and adjusted to ensure appropriate moderation of exposure. Automated dose identity management consultant nology is applied to adjust radiation exposure while achieving a diagnostic quality image. FINDINGS: The brain parenchyma is unremarkable. Th e lee-white matter differentiation is preserved. No evidence of acute intra or extra-axial hemorrhage, mass, mass effect or acute territorial infarction. There is no acute hydrocephalus. Basal cisterns are patent. No acute soft tissue hematoma or lacerat ion. No skull fractures or aggressive bony lesions. Paranasal sinuses and mastoid air cells are clear. Orbits are normal. IMPRESSION: No acute intracranial abnormality identi fied. [facility]-[id number] Performing Organization Address City/[facility]/ZIP Code Phon e Number [facility] [address] [place] [address] Creatine kinase, total (CPK) (01/02/2019 1:38 AM CDT) Pathologist [facility] Creatine kinase 152 26 - 192 U/L [facility] [place] Specimen Plasma specimen Performing Organization Address City/State/ZIP [facility] Phon e Number [facility] DEPARTMENT OF PATHOLOGY AND [address] [place] [address] GENOMIC MEDICINE [facility] [address] [place], [place] [address] HOSPITAL Estimated GFR (01/02/2019 1:30 AM CDT) Pathologist [facility] Estimated GFR >=90 mL/min/1.73 DONTA [facility] Comment: [facility] [place] Catergory Units Interpretation HOS PITAL G1 >=90 Normal or high G2 60-89 Mildly decreased G3a 45-59 Mildly to moderately decreas ed G3b 30-44 Moderately to severely decre ased G4 15-29 Severely decreased G5 <15 Kidney failure The eGFR was calculated using the Chronic Kidney Disea se Epidemiology Collaboration (CKD-EPI) equation. Interpretation is based on recommendations of the National Kidney Foundation-Kidney Disease Outcomes Tien lity Initiative (NKF-KDOQI) published in 2014. Specimen Plasma specimen Performing Organization Address [facility] Phon e Number [facility] DEPARTMENT OF PATHOLOGY AND [address] [place] [id number] [place] [address] Partial thromboplastin time, activated (01/02/2019 1:30 AM CDT) [facility] [address] PTT 32.8 23.0 - 36.0 [facility] Comment: [facility] PTT therapeutic range for unfractionated heparin is HOSPITAL 61.0-112.0 seconds which corresponds to Anti-Xa 0.3-0.7 U/ml. Specimen Blood Performing Organization Address [facility] Phon e Number [facility] DEPARTMENT OF PATHOLOGY AND [id number] [place] [id number] [place] [address] Prothrombin time with INR (01/02/2019 1:30 AM CDT) [facility] [address] Prothrombin time 13.1 11.5 - 14.5 [facility] INR 1.0 [place] Comment: [facility] [employer] Normalized Ratio (INR) is a [facility] monitoring tool for patients who are stable on oral anticoagulant therapy. An INR of 2.0-3.0 is suggested for deep vein thrombosis/pulmonary embolism. Specimen Blood Performing Organization Address City/[facility] Phon e Number [facility] DEPARTMENT OF PATHOLOGY AND [address] [place] [address] [place], [place] [address] [place] [address] [place] [address] CBC with platelet and differential (01/02/2019 1:30 AM CDT) Pathologist [facility] WBC 8.75 4.50 - 11.00 k/uL [facility] RBC 4.61 4.20 - 5.50 m/uL [facility] HGB 13.1 12.0 - 16.0 g/dL [facility] HCT 40.4 37.0 - 47.0 % [facility] MCV 87.6 82.0 - 100.0 fL [facility] MCH 28.4 27.0 - 34.0 pg [facility] MCHC 32.4 31.0 - 37.0 g/dL [facility] RDW - SD 40.4 37.0 - 55.0 fL [facility] MPV 9.8 8.8 - 13.2 fL [facility] Platelet count 268 150 - 400 k/uL [facility] Nucleated RBC 0.00 /100 WBC [facility] Neutrophils 52.0 39.0 - 69.0 % [facility] Lymphocytes 37.0 25.0 - 45.0 % [facility] Monocytes 8.3 0.0 - 10.0 % [facility] Eosinophils 1.6 0.0 - 5.0 % [facility] Basophils 0.5 0.0 - 1.0 % [facility] Specimen Blood Performing Organization Address City/[facility] Phon e Number [facility] DEPARTMENT OF PATHOLOGY AND [address] [place] [id number] [place] [address] hCG qualitative, serum screen (01/02/2019 1:30 AM CDT) Pathologist Sig nature hCG qualitative, serum Negative [facility] Specimen Blood Performing Organization Address City/[facility] Phon e Number [facility] DEPARTMENT OF PATHOLOGY AND [id number] [place] [address] [place] [address] GENOMIC [facility] [id number] [place] [address] Osmolality, serum (01/02/2019 1:30 AM CDT) Pathologist Sig nature Osmolality 320 (HH) 275 - 295 [facility] Comment: mOsm/kg [facility] Results called to and read back by ZACH PARR at 02:09 by GRACE. Specimen Blood Performing Organization Address City/[facility] Phon e Number [facility] DEPARTMENT OF PATHOLOGY AND [address] [place] [address] [facility] [address] [place] [address] Alcohol level, blood (01/02/2019 1:30 AM CDT) Alcohol 112.0 mg/dL [facility] Comment: [place] Normal None Detected [facility]OSPITAL Legal Intoxication in [place] 80 mg/dL (0.08%) - Whole Blood Toxic Concentration 200 mg/dL (0.2%) Potentially Fatal 350 - 500 mg/dL (0. 35 - 0.5%) Alcohol percent 0.112 % [facility] Specimen Plasma specimen Performing Organization Address City/[facility] Phon e Number [facility] DEPARTMENT OF PATHOLOGY AND [address] [place], [place] [address] [place] [address] [address] [place] [address] Acetaminophen level (01/02/2019 1:30 AM CDT) Acetaminophen level <5.0 (A) 10.0 - 30.0 [place] Comment: ug/mL [facility] Therapeutic 1 0-30 ug/mL [facility] Possible Toxicity 150- 200 ug/mL Probable Toxicity >200 ug/mL Specimen Plasma specimen Performing Organization Address City/[facility] Phon e Number [facility] DEPARTMENT OF PATHOLOGY AND [address] [place] [address] [facility] [address] [place] [address] Salicylate level (01/02/2019 1:30 AM CDT) Pathologist Sig nature Salicylate <3.0 3.0 - 30.0 mg/dL [facility] Specimen Plasma specimen Performing Organization Address City/[facility] Phon e Number [facility] DEPARTMENT OF PATHOLOGY AND [address] [place], [place] [address] [place] [address] [address] [place] [address] Comprehensive metabolic panel (01/02/2019 1:30 AM CDT) Sodium 142 135 - 148 [facility] mEq/L [facility] Potassium 3.0 (LL) 3.5 - 5.0 [facility] Comment: mEq/L [place] Results called to and read back by ZACH PARR at 01/02/2019 02:09 HOSPITAL by QN. Chloride 104 98 - 112 [facility] mEq/L [facility] CO2 22 (L) 24 - 31 mEq/L [facility] Anion gap 16@ANIO (H) 7 - 15 mEq/L [facility] BUN 14 6 - 20 mg/dL [facility] Creatinine 0.80 0.50 - 0.90 [facility] mg/dL [facility] Glucose 96 65 - 99 mg/dL [facility] Calcium 9.4 8.3 - 10.2 [facility] mg/dL [facility] Protein 7.3 6.3 - 8.3 [facility] Comment: g/dL [place] Myhdedh3028.6-7.0 g/dL HOSPITAL 1 inxw9208.4-7.6 g/dL 7 months-1uzqs889.1-7.3 g/dL 1-2 sqwmu197.6-7.5 g/dL >3 .0-8.0 g/dL 18-5240784.3-8.3 g/dL Albumin 4.8 3.5 - 5.0 [facility] g/dL [facility] A/G ratio 1.9 0.7 - 3.8 [facility] Alkaline phosphatase 79 35 - 104 U/L [facility] AST 17 10 - 35 U/L [facility] ALT 12 5 - 50 U/L [facility] Total bilirubin <0.2 0.0 - 1.2 [facility] mg/dL [facility] Specimen Plasma specimen Performing Organization Address City/State/ZIP Code Phon e Number [facility] DEPARTMENT OF PATHOLOGY AND [address] [place] [address] GENOMIC MEDICINE [facility] [address] [place], [place] [address] [facility] ECG 12 lead (01/02/2019 1:26 AM CDT) Pathologist Sig nature Ventricular rate 103 [facility] Atrial rate 103 [facility] [place] interval 188 [facility] QRSD interval 82 [facility] QT interval 342 [facility] QTC interval 448 [facility] P axis 1 50 [facility] QRS axis 1 76 [facility] T wave axis 31 [facility] EKG impression Sinus [facility] tachycardia-Otherwise normal ECG-No previous ECGs available-Electronicall y Signed By Bull TAYLOR, Bull ([id number]) on 01/03/2019 7:26:28 AM Specimen Narrative Performed At This result has an attachment that is no t available. Performing Organization Address City/State/ZIP Code Phon e Number [facility] MUSE [address] [place] [address] ECG ED Preliminary Interpretation - Not an Order (01/02/2019 1:20 AM CDT) Narrative Performed At Preet Olivia MD 01/02/2019 4:40 AM ECG ED Preliminary Interpretation - Not an Order Performed by: Preet Olivia MD Authorized by: Preet Olivia MD ECG reviewed by ED Physician in the abse nce of a waxing machine operator helper: no Interpretation: Interpretation: abnormal Rate: ECG rate: 103 ECG rate assessment: tachycardic Rhythm: Rhythm: sinus tachycardia QRS: QRS axis: Normal QRS intervals: Normal Conduction: Conduction: normal ST segments: ST segments: Non-specific T waves: T waves: normal after 12/13/2018 Insurance Payer Benefit Plan / Subscriber ID Effective Dates Phone Addre ss Type Group [employer] [id number] 2018-Present HMO CHOICE [facility] (Home) [place] [address] Advance Directives For more information, please contact: [phone] Type Date Recorded 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
--- OUTSIDE RECORDS SUMMARY | 2019-12-15 22:33 | XMS REPORT | Summary of Care ---
:1995 Author Organization [facility] [employer] Address [address] [place] [id number] Care Team Providers Name Role Phone Eddie Rosas Primary Care Provider Reason for Visit Reason Comments Well Woman Exam [employer] problem Encounter Details Date Type Department Care Team Description [facility] (Primary Dx); [facility] Screen for STD (sexually transmitted dis ease); [address] Vaginal discharge; [address] Dysuria; [place], [place] [address] Encounter for other general counseling o r advice on contraception; [id number] Seizure disorder; [phone] BMI 32.0- 32.9,adult; Bipolar affecti ve disorder, remission status unspecified; Need for HPV va ccination Allergies Active Allergy Reactions Severity Noted Date Comments Doxycycline Other - See comments 04/20/2019 seizure s Tramadol Other - See comments 04/20/2019 seizure s documented as of this encounter (statuses as of 09/27/2019) Medications Medication Sig Dispensed Refills Start Date End Date Status topiramate Take 100 mg by 0 Acti ve (TOPAMAX) 100 mg mouth. tablet levETIRAcetam Take 2 tablets 60 tablet 0 04/20/2019 Discontinued (KEPPRA) 750 mg by mouth 2 0 tabletIndications: (two) times Seizures daily. naproxen (NAPROSYN) Take 1 tablet 10 tablet 0 06/26/201909/26 Discontinued 500 mg by mouth 2 0 tabletIndications: (two) times Dysuria daily with meals. levonorgestrel-ethi Take 1 tablet 1 Package 2 07/18/201909/26 Discontinued nyl estradiol by mouth daily. 0 (SRONYX) 0.1-20 mg-mcg per tabletIndications: Other general counseling and advice for contraceptive management dextromethorphan-gu Take 10 mL by 1 Bottle 0 07/28/201909/26 Discontinued aifenesin 10-100 mouth every 8 0 mg/5 mL (eight) hours solutionIndications as needed for : Cough, Chest Cough. pain, unspecified type, Acute bronchitis, unspecified organism albuterol 90 Inhale 2 Puffs 8.5 g 0 07/28/2019 D iscontinued mcg/actuation every 4 (four) 0 inhalerIndications: hours as needed Cough, Chest pain, for Wheezing, unspecified type, Shortness of Acute bronchitis, Breath or Chest unspecified tightness. organism montelukast 10 mg Take 1 tablet 20 tablet 0 08/18/2019 02 Discontinued tabletIndications: by mouth daily. 0 Cough loratadine 10 mg Take 1 tablet 20 tablet 0 08/18/2019 09/27/19 2 Discontinued tabletIndications: by mouth daily. 0 Cough benzonatate 100 mg Take 1 capsule 14 capsule 0 08/18/201909/07 Discontinued capsuleIndications: by mouth 3 0 Cough (three) times daily as needed for Cough. divalproex ER 500 TAKE 1 TABLET 0 07/13/2019 02 Discontinued mg 24 hr tablet BY MOUTH ONCE 0 DAILY AT BEDTIME QUEtiapine 25 mg TAKE 1 TABLET 0 08/13/2019 09/27/19 2 Discontinued tablet BY MOUTH ONCE 0 DAILY AT BEDTIME documented as of this encounter (statuses as of 09/27/2019) Active Problems Problem Noted Date Pain pelvic 06/23/2019 Abnormal EKG 10/08/2017 History of seizure 08/19/2017 Over weight 08/19/2017 Bipolar affective disorder, remission status unspecifi ed 07/15/2016 Seizure disorder 02/15/2016 Overview: Epilepsy x's 2 years. Had genetic counse ling 01/18/16 per [place].-see external records-page 20-21 documented as of this encounter (statuses as of 09/27/2019) Resolved Problems Problem Noted Date Resolved Date Routine follow-up 05/03/2018 05/17/2019 Spontaneous vaginal delivery 04/03/2018 05/03/2018 Maternal care for known or suspected placental 04/02/2018 05/03/2018 insufficiency, third trimester, not applicable or unspecified Seizure disorder during in third trimester 019 05/03/2018 24 weeks gestation of 01/05/2018 04/01/19 19 Supervision of high risk , antepartum 11/18/2017 05/03/2018 Seizure disorder during , antepartum 10/29/2017 04/01/2018 Dysuria 10/29/2017 05/03/2018 Seizure 10/19/2017 04/01/2018 Seizures 09/21/2017 04/01/2018 Seizure disorder during in first trimester 018 04/01/2018 Mental disorder affecting , antepartum 09/03/2017 05/03/2018 Bipolar disease during , antepartum 09/03/2017 05/03/2018 Rh negative state in antepartum period 08/21/2017 0 05/03/2018 Susceptible to varicella (non-immune), currently 05/03/2018 Overview: Address pp Multiparity 08/19/2017 05/03/2018 Supervision of high-risk 08/19/201705/03 Vaginal discharge 09/08/2016 08/19/2017 Chlamydia 07/16/2016 08/19/2017 Well woman exam 07/15/2016 08/19/2017 Screening for STD (sexually transmitted disease) 07/15/2016 08/19/2017 Encounter for other contraceptive management 07/15/2016 08/19/2017 History of anxiety 07/15/2016 08/19/2017 Obesity, unspecified 07/15/2016 08/19/2017 care and examination of lactating mother 06/10/19 17 10/15/2016 Marijuana smoker 05/20/2016 08/19/2017 37 weeks gestation of 05/16/2016 05/03/19 19 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 Chlamydia infection affecting in third trimester, 05/15/2016 06/09/2016 antepartum High risk teen in third trimester 05/15/2016 06/09/2016 36 weeks gestation of 05/15/2016 05/23/19 17 Supervision of high risk , antepartum, second 02/1406/09/2016 trimester Overview: Per external records 10/16/15: Blood Type: O neg Rh: neg Blood group antibody screen: negative HepB: neg Rubella: immune HGB/HCT: 13.0/40.4, repeat on 11/21/15 wa s 13.1/38.2 PLT: 253 HIV: neg GC/CT: neg Gardnerella: positive Trichomoniasis: neg Trisomy 18 & 21neg--done 01/02/16 MSAFP: neg Glucose: 96 Marijuana smoker 02/15/2016 02/16/2016 Family history of congenital anomalies 02/15/2016 0 06/09/2016 Overweight (BMI 25.0-29.9) 02/15/2016 06/09/2016 documented as of this encounter (statuses as of 09/27/2019) Immunizations Name Administration Dates Next Due HPV9 09/27/2019, 05/17/2019, 04/02/2018 (Deferred: - pt. states "I had then as a teenager.) Influenza Virus Vaccine Quad IM 3+ 12/14/2017, 03/27/2016 (D eferred: YRS Patient Refused) Rho (d) Immune Globulin 03/27/2016 TDAP 04/03/2016, 03/27/2016 (Deferred: Patient Refused) TDAP (ADACEL) VACCINE 02/15/2018 Varicella (varivax)(chicken pox) 05/24/2016 documented as of [...] Travel End No recent travel history available. COVID-19 Exposure Response Date Recorded In the last month, have you been in contact with No / Unsure 09/27/2019 2:19 PM CDT someone who was confirmed or suspected to have Coronavirus / COVID-19? documented as of this encounter Last Filed Vital Signs Vital Sign Reading Time Taken Comments Blood Pressure 129/71 09/27/2019 2:20 PM CDT Pulse 99 09/27/2019 2:20 PM CDT Temperature 36.4 C (97.6 F) 09/27/2019 2:20 PM CDT Respiratory Rate 16 09/27/2019 2:20 PM CDT Oxygen Saturation - - Inhaled Oxygen Concentration - - Weight 85.8 kg (189 lb 2 oz) 09/27/2019 2:20 PM CDT Height 162.6 cm (5' 4") 09/27/2019 2:20 PM CDT Body Mass Index 32.46 09/27/2019 2:20 PM CDT documented in this encounter Patient Instructions Patient InstructionsJose AntonioCalli aguilarLISA - 09/27/2019 2:00 PM CDT Patient Education Clinical Breast Exam Many health organizations recommend a yearly clinical breast exam. This exam may be done by a couples therapist, family healthcare provider, nurse practitioner, nurse bakery associate, or specially trained nurse. Yearly breast exams help tomake surethat breast conditions are found early. Your healthcare providers role A healthcare professional knows the tests and follow-up care needed if a problem is found. Your clinical exam is also a great time to ask questions about breast self-exams. You can find out if yourechecking your breasts in the best way. Or you may want to ask how , breast implants, or breast reduction surgery affect the way you should check your breasts. Diagnostic tests If a clinical exam reveals a breast change, you may have other tests to find out more. These tests may include: Mammography. A low-dose X-ray of your breast tissue. Ultrasound. An imaging test that uses sound waves to create images of your breast. Biopsy. A small amount of breast tissue is removed by needle or by a cut (incision). The tissue is then checked under a microscope. Guidelines for having clinical breast exams The [employer] recommends that starting at age 29, you should have a clinical breast exam every 1 to 3 years. After age 40, have a clinical breast exam each year. If youre at higher risk for breast cancer, you may need exams more often. Risk factors for breast cancer may include: Being over 50 or postmenopausal Having a family history of breast cancer Having the BRCA1 or BRCA2 gene mutation or certain other gene mutations Having more menstrual periods due to starting menstruation early(before age 12) or having a late menopause (after age 55) Having no pregnancies Having a first after age 30 Being obese Having a history of radiation treatment to your chest area Exposure to ANNY during your mother's Not being active Drinking too much alcohol Having dense breast tissue Taking hormone therapy after menopause Other health organizations have different recommendations. Talk with your healthcare provider about what is best for you. Marcandi romario reviewed this educational content on 10/07/201619998942-6949 [employer]. [address] [place] [address]. All rights reserved. This information is not intended as a substitute for professional medical care. Always follow your healthcare professional's instructions. Patient Education Breast Health: Breast Self-Awareness What is breast self-awareness? Breast self-awareness is knowing how your breasts normally look and feel. Your breasts change as yougo through different stages of your life. So its important to learn what is normal for your breasts. Knowing about your breasts helps you spot any changes in them right away. Tell your healthcare provider about any changes. Why is breast self-awareness important? Many experts now say that women should focus on breast self-awareness instead of doing a breast self-examination (BSE). These experts include the [employer] and the [employer] [employer]. Some experts even advise not teaching women to do a BSE. Thats because research hasnt shown a clear benefit to doing BSEs. Breast self-awareness is different than a BSE. It isnt about following a certain method and schedule. Its about knowing what's normal for your breasts. That way you can spot even small changes right away. If you see any changes, tell your healthcare provider. Changes to look for Call your healthcare provider if you find any changes in your breasts that worry you. These changes may be: A lump Nipple discharge other than breastmilk, especially if it's bloody Swelling A change in size or shape Skin changes, such as redness, thickening, or dimpling of the skin Swollen lymph nodes in the armpit Nipple problems, such as pain or redness If you find a lump Call your provider if you find lumpiness in one breast. Also call if you feel something different inthe tissue or feel a definite lump. Sometimes lumpiness may be due to menstrual changes. But there may be reason for concern. Your provider may want to see you right away if you have: Nipple discharge that is bloody Skin changes on your breast, such as dimpling or puckering Its okay to be upset if you find a lump. Be sure to call your provider right away. Remember that most breast lumps are benign. This means they are not cancer. Marcandi romario reviewed this educational content on 10/07/201619998102-5043 The [employer]. [address] [place] [address]. All rights reserved. This information is not intended as a substitute for professional medical care. Always follow your healthcare professional's instructions. Patient Education Prevention Guidelines,Women Ages 18 to 39 Screening tests and vaccines are an important part of managing your health. A screening test is doneto find possible disorders or diseases in people who don't have any symptoms. The goal is to find a disease early so lifestyle changes can be made and you can be watched more closely to reduce the riskof disease, or to detect it early enough to treat it most effectively. Screening tests are not considered diagnostic, but are used to determine if more testing is needed. Health counseling is essential, too. Below are guidelines for these, for women ages 18 to 39. Talk with your healthcare provider tomake sure youre up-to-date on what you need. Screening Who needs it How often Alcohol misuse All women in this age group At routine exams Blood pressure All women in this age group Yearly checkup if your blood pressure is normal Normal blood pressure is less than 120/80 mm Hg If your blood pressure reading is higher than normal, follow the advice of your healthcare provider Breast cancer All women in this age group should talk with their healthcare providers about the needfor clinical breast exams (CBE)1 Clinical breast exam every 3 years1 Cervical cancer Women ages 21 and older Women between ages 21 and 29 should have a Pap test every 3 years; women between ages 30 and 65 are advised to have a Pap test plus an HPV test every 5 years Chlamydia Sexually active women ages 25 and younger, and women at increased risk for infection (suchas having multiple sex partners) Every year if you're at risk or have symptoms Depression All women in this age group At routine exams Type 2 diabetes, prediabetes All women with no symptoms who are overweight or obese and have 1 or more other risk factors for diabetes At least every 3 years. Also, testing for diabetes during after the 24th week. Type 2 diabetes, prediabetes All women diagnosed with gestational diabetes Lifelong testing every 3 years Type 2 diabetes All women with prediabetes Every year Gonorrhea Sexually active women at increased risk for infection At routine exams Hepatitis C Anyone at increased risk At routine exams HIV All women should be tested at least once for HIV between the ages of 13 and 64 At routine exams.Those with risk factors for HIV should be tested at least annually. Obesity All women in this age group At routine exams Syphilis Women at increased risk for infection should talk with their healthcare provider At routineexams Tuberculosis Women at increased risk for infection should talk with their healthcare provider Ask your healthcare provider Vision All women in this age group At least 1 complete exam in your 20s, and 2 in your 30s Vaccine2 Who needs it How often Chickenpox (varicella) All women in this age group who have no record of this infection or vaccine 2doses; the second dose should be given 4 to 8 weeks after the first dose Hepatitis A Women at increased risk for infection should talk with their healthcare provider 2 dosesgiven at least 6 months apart Hepatitis B Women at increased risk for infection should talk with their healthcare provider 3 dosesover 6 months; second dose should be given 1 month after the first dose; the third dose should be given at least 2 months after the second dose and at least 4 months after the first dose Haemophilus influenzaeType B (HIB) Women at increased risk for infection should talk with their healthcare provider 1 to 3 doses Human papillomavirus (HPV) All women in this age group up to age 26 3 doses; the second dose should be given 1 to 2 months after the first dose and the third dose given 6 months after the first dose Influenza (flu) All women in this age group Once a year Measles, mumps, rubella (MMR) All women in this age group who have no record of these infections or vaccines 1 or 2 doses Meningococcal Women at increased risk for infection should talk with their healthcare provider 1 or more doses Pneumococcal conjugate vaccine (PCV13)and pneumococcal polysaccharidevaccine(PPSV23) Women at increased risk for infection should talk with their healthcare provider PCV13: 1 dose ages 19 to 65 (protects against 13 types of pneumococcal bacteria) PPSV23: 1 to2 doses through age 64, or 1 dose at 65 or older (protects against 23 types of pneumococcal bacteria) Tetanus/diphtheria/pertussis (Td/Tdap) booster All women in this age group Td every 10 years, or a one-time dose of Tdap instead of a Td booster after age 18, then Td every 10 years Counseling Who needs it How often BRCA gene mutation testing for breast and ovarian cancer susceptibility Women with increased risk for having gene mutation When your risk is known Breast cancer and chemoprevention Women at high risk for breast cancer When your risk is known Diet and exercise Women who are overweight or obese When diagnosed, and then at routine exams Domestic violence Women at the age in which they are able to have children At routine exams Sexually transmitted infection prevention Women who are sexually active At routine exams Skin cancer Prevention of skin cancer in fair-skinned adults At routine exams Use of tobacco and the health effects it can cause All women in this age group Every visit 1 According to the ACS, women ages 20 to 39 years should have a clinical breast exam (CBE) as part of their routine health exam every 3 years. Breast self-exams are an option for women starting in their 20s.But the USPSTF does not recommend CBE. Marcandi last reviewed this educational content on 12/07/201619992350-7862 [employer]. [address] [place] [address]. All rights reserved. This information is not intended as a substitute for professional medical care. Always follow your healthcare professional's instructions. Patient Education Understanding STIs When it comes to sex, nothing is risk-free. Any sexual contact with the penis, vagina, anus, or mouth can spread a sexually transmitted infection (STI). These include chlamydia, gonorrhea, herpes, HIV,and genital warts. STIs are also known as sexually transmitted diseases (STDs). The only sure way toprevent STIs is not having sex (abstinence). But there are ways to make sex safer. Use a latex condom each time you have sex. And choose your partner wisely. Use condoms for safer sex If you have sex, latex condoms provide the best protection against STIs. Latex condoms stop the exchange of body fluids that carry certain STIs. They also limit contact with affected skin. Be aware that a condom doesnt cover all skin. So affected skin that isn't covered can still transfer disease. But youre safer with a condom than without one. Use a condom even if you use other control. control methods such as the pill or IUD help prevent , but they don't protect against STIs. Choose the right condom Condoms made of latex prevent disease best. If youre allergic to latex, use polyurethane condoms instead. Male condoms fit over the penis. Female condoms line the vagina. Before buying a condom, read the label to be sure it prevents disease. Some novelty condoms dont. The right lubricant helps Buy lubricated condoms or use lubricant. This provides greater comfort and reduces the risk for condom breakage. Use only water-based lubricants. Dont use oil, lotion, or petroleum jelly. They can weaken the condom, causing breakage. Also, you may want to choose lubricants without nonoxynol-9. This spermicide may cause irritation. It can raise the risk for certain STIs. Use condoms correctly For condoms to work, they must be used the right way. Keep these tips in mind: Use a new latex condom each time you have sex. Slip the condom on the penis before any contact ismade. When ready to withdraw, hold the rim of the condom as the penis pulls out. This prevents the condom from slipping off. Check the expiration date before using a condom. Dont store condoms in places that can get hot, such as a car or a wallet that is carried in a back pocket. Get to know your partner Safer sex is a process. It involves getting to know your partner and making informed choices. Ask each other how many partners you have had in the past, and how many you have now. Find out if either ofyou has HIV or any other STI. If you decide to have sex, use a condom each time. Dont stop using condoms unless youre sure neither of you has other partners and youve both been tested to confirm you dont have HIV or other STIs. Then stay free of disease by having sex only with each other (monogamy). Keep your cool Dont let alcohol or drugs cloud your judgment. They could lead you to have sex with someone you wouldnt have chosen if you were sober. Or you might forget to use a condom. If you do plan to have sex, keep a latex condom with you. Dont wait until youre in the heat of passion to try to find one. Consider abstinence The only way to be sure you wont get an STI is to abstain from sex. Abstinence is a choice that many people make at some point in their life. Maybe you want to wait until you are sure youre readybefore you have sex. Maybe youd like a break from the responsibilities of sex for a while. Or maybe you just want to know your partner better before taking the next step. Abstinence is a choice you can make now to protect your future. Marcandi last reviewed this educational content on 02/06/201819998121-9066 [employer]. [address] [place] [address], [place] [address]. All rights reserved. This information is not intended as a substitute for professional medical care. Always follow your healthcare professional's instructions. Patient Education Understanding HIV and AIDS It's important to know how HIV can get into your body and what happens once its there. Then youll be better prepared to protect yourself or others against this virus. A person with HIV can look and feel perfectly healthy. But that person can give HIV to others as soon as he or she is infected with the virus. Having unsafe or unprotected sex or sharing needles puts you at risk for HIV. Talk with your healthcare provider about ways to protect yourself or a loved one from getting HIV. How HIV infection progresses After HIV enters the body, it attacks the immune system in the stages below. A person with HIV can infect others once the virus gets into the blood. HIV with no symptoms. A person with HIV may have no symptoms for years. The only sign of infection may be a positive blood test for HIV 2 weeks to 3 months or later after HIV enters the body. HIV with symptoms. Some people develop an illness similar to mono (mononucleosis) 2 to 4 weeks after the virus enters the body. This is called acute retroviral syndrome. Symptoms may include swollen lymph glands, chills, fever, night sweats, weakness, weight loss, skin rashes, mouth ulcers, or sore t hroat. Symptoms may be mild or the person can feel quite sick. Even without treatment the symptoms almost always go away in a few days or up to 2 to 3 weeks. Then the person has no symptoms, often for years. But over time the immune system starts to get weaker and symptoms start appearing. People at this stage may have a yeast infection in the mouth (oral thrush), shingles, skin problems, pneumonia, diarrhea that keeps coming back, or weight loss. AIDS. AIDS is the most advanced stage of HIV infection, when the immune system is severely weakened.Certain rare diseases and cancers that normally would not occur, now can occur because the body can no longer fight them well enough. It is often these diseases that cause in people with AIDS. HIV may also directly attack the brain and nervous system. This causes seizures and loss of memory and body movement. It also affects many other parts of the body. This leads to problems such as anemia, low white blood cell count, diarrhea, belly pain, skin problems, and many others. How HIV enters the body HIV is carried in semen, vaginal fluid, blood, and breastmilk. During sex, HIV can enter the body. It gets in through the fragile tissue and linings, sores, or cuts in or around the vagina, penis, anus, and mouth. During drug use, tattooing, or body piercing, the virus can enter the blood through an infected needle. A mother who has HIV can infect her child during , childbirth, and . Marcandi last reviewed this educational content on 08/07/201819993738-4955 [employer]. [address] [place] [address]. All rights reserved. This information is not intended as a substitute for professional medical care. Always follow your healthcare professional's instructions. Patient Education Eating Heart-Healthy Foods Eating has a big impact on your heart health. In fact, eating healthier can improve several of your heart risks at once. For instance, it helps you manage weight, cholesterol, and blood pressure. Here are ideas to help you make heart- healthy changes without giving up allthe foods and flavors you love. Getting started Talk with your healthcare provider about eating plans, such as the DASH or Mediterranean diet. You may also be referred to a dietitian. Change a few things at a time. Give yourself time to get used to a few eating changes before adding more. Work to create a tasty, healthy eating plan that you can stick to for the rest of your life. Goals for healthy eating Below are some tips to improve your eating habits: Limit saturated fats and trans fats. Saturated fats raise your levels of cholesterol, so keep these fats to a minimum. They are found in foods such as fatty meats, whole milk, cheese, and palm and coconut oils. Avoid trans fats because they lower good cholesterol as well as raise bad cholesterol. Trans fats are most often found in processed foods. Reduce sodium (salt) intake. Eating too much salt may increase your blood pressure. Limit your sodium intake to 2,300 milligrams (mg) per day(the amount in 1 teaspoon of salt), or less if your healthcare provider recommends it. Dining out less often and eating fewer processed foods are two great ways to decrease the amount of salt you consume. Managing calories. A calorie is a unit of energy. Your body hurley calories for fuel, but if you eat more calories than your body hurley, the extras are stored as fat. Your healthcare provider can help you create a diet plan to manage your calories. This will likely include eating healthier foods as well as exercising regularly. To help you track your progress, keep a diary to record what you eat and how often you exercise. Choose the right foods Aim to make these foods oksana of your diet. If you have diabetes, you may have different recommendations than what is listed here: Fruits and vegetables provide plenty of nutrients without a lot of calories. At meals, fill half your plate with these foods. Split the other half of your plate between whole grains and lean protein. Whole grains are high in fiber and rich in vitamins and nutrients. Good choices include whole-wheat bread, pasta, and brown rice. Lean proteins give you nutrition with less fat. Good choices include fish, skinless chicken, and beans. Low-fat or nonfat dairy provides nutrients without a lot of fat. Try low-fat or nonfat milk, cheese, or yogurt. Healthy fats can be good for you in small amounts. These are unsaturated fats, such as olive oil,nuts, and fish. Try to have at least 2 servings per week of fatty fish, such as salmon, sardines, mackerel, rainbow trout, and albacore tuna. These contain omega-3 fatty acids, which are good for your heart. Flaxseed is another source of a heart-healthy fat. More on heart-healthy eating Read food labels Healthy eating starts at the grocery store. Be sure to pay attention to food labels on packaged foods. Look for products that are high in fiber and protein, and low in saturated fat, cholesterol, and sodium. Avoid products that contain trans fat. And pay close attention to serving size. For instance, if you plan to eat two servings, double all the numbers on the label. Prepare food right A eng part of healthy cooking is cutting down on added fat and salt. Look on the internet for lower-fat, lower-sodium recipes. Also, try these tips: Remove fat from meat and skin from poultry before cooking. Skim fat from the surface of soups and sauces. Broil, boil, bake, steam, grill, and microwave food without added fats. Choose ingredients that spice up your food without adding calories, fat, or sodium. Try these items: horseradish, hot sauce, lemon, mustard, nonfat salad dressings, and vinegar. For salt-free herbs and spices, try basil, cilantro, cinnamon, pepper, and crescencio. Marcandi last reviewed this educational content on 12/07/201619996225-1579 [employer]. [address] [place] [address]. All rights reserved. This information is not intended as a substitute for professional medical care. Always follow your healthcare professional's instructions. Patient Education Understanding [employer] MyPlate The USDA (U.S. Department of Agriculture) has guidelines to help you make healthy food choices. These are called MyPlate. MyPlate shows the food groups that make up healthy meals using the image of a place setting. Before you eat, think about the healthiest choices for what to put onto your plate or into your cup or bowl. To learn more about building a healthy plate, visit www.choosemyplate.gov. The food groups Fruits. Any fruit or 100% fruit juice counts as part of the Fruit Group. Fruits may be fresh, canned, frozen, or dried, and may be whole, cut-up, or pureed. Make half your plate fruits and vegetables. Vegetables. Any vegetable or 100% vegetable juice counts as a member of the Vegetable Group. Vegetables may be fresh, frozen, canned, or dried. They can be served raw or cooked and may be whole, cut-up, or mashed. Make half your plate fruits and vegetables. Grains. All foods made from grains are part of the Grains Group. These include wheat, rice, oats,cornmeal, and barley such as bread, pasta, oatmeal, cereal, tortillas, and grits. Grains should be no more than a quarter of your plate. At least half of your grains should be whole grains. Protein. This group includes meat, poultry, seafood, beans and peas, eggs, processed soy products(like tofu), nuts (including nut butters), and seeds. Make protein choices no more than a quarter ofyour plate. Meat and poultry choices should be lean or low fat. Dairy. All fluid milk products and foods made from milk that contain calcium, like yogurt and cheese, are part of the Dairy Group. (Foods that have little calcium, such as cream, butter, and cream cheese, are not part of the group.) Most dairy choices should be low-fat or fat-free. Oils. These are fats that are liquid at room temperature. They include canola, corn, olive, soybean, and sunflower oil. Foods that are mainly oil include mayonnaise, certain salad dressings, and soft margarines. You should have only 5 to 7 teaspoons of oils a day. You probably already get this muchfrom the food you eat. Marcandi last reviewed this educational content on 10/07/201619993404-4254 [employer]. [address] [place] [address]. All rights reserved. This information is not intended as a substitute for professional medical care. Always follow your healthcare professional's instructions. 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 Patient desires nothing for contraception. Reviewed risks/benefits/alternative contraceptive methods. Pt complains of a "weird feeling when she pees", not necessarily burning. Reports she has had this feeling when she had chlamydia and a UTI, so she is not sure which it is. She has had the symptoms for 2 weeks with no improvement. Describes her vaginal discharge as "different" with some odor. Desires STD testing. Bipolar managed by [facility]. Pt reports no past or present history of physical, sexual, and emotional abuse. Rubella:immune VZV: non immune, refer for vaccines BMI: Body mass index is 32.46 kg/m. 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 Pt feels safe at home. Amish preference none. No pets in the home. Patient lives at home with sister and children. Social History Substance and Sexual Activity Sexual Activity Yes Partners: Male control/protection: None Comment: last sexual intercourse 09/23/2019 Labs Labs are pending. Radiology No new radiology. Allergies Summer is allergic to doxycycline and tramadol. Medications Summer has a current medication list which includes the following prescription(s): topiramate. Review of Systems Constitutional: Negative. HENT: Negative. Eyes: Negative. Respiratory: Negative. Breasts: Negative. Cardiovascular: Negative. Gastrointestinal: Negative. Genitourinary: See HPI Musculoskeletal: Negative. Skin: Negative. Neurological: Negative. Psychiatric/Behavioral: Negative. Endocrine: Endocrine negative BP 129/71 (BP Location: Right arm, Patient Position: Sitting, BP CUFF SIZE: Adult Medium) | Pulse 99 | Temp 36.4 C (97.6 F) (Oral) | Resp 16 | Ht 5' 4" (1.626 m) | Wt 189 lb 2 oz (85.8 kg) | LMP 08/08/2019 (Approximate) | No | BMI 32.46 kg/m Pregravid BMI: Could not be calculated Physical Exam Vitals reviewed. Constitutional: She is oriented to person, place, and time. She appears well- developed and well-nourished. Her body habitus is normal. Neck: No thyroid nodules and no thyromegaly palpated. Cardiovascular: Regular rate and rhythm. No murmur auscultated. Pulmonary/Chest: Breath sounds clear to auscultation. Normal inspiratory effort. Abdominal: Abdomen is soft. No mass palpated. No tenderness present. There is no hepatosplenomegaly. Neuro/Psychiatric: She has a normal mood and affect. She is oriented to person, place, and time. Skin: Skin normal. No lesion and no rash present. Genitourinary Comments: Chaperoned by: Kel Hernandez MA External genitalia: Normal external genitalia appropriate for age. No labial lesion. Bladder: No tenderness. Normal bladder Vagina:Normal vagina. No lesion inspected. No abnormal vaginal discharge found. Cervix: Normal cervix. No lesion. No tenderness and no discharge present. Uterus: Uterus is normal size, normal position and non-tender. Normal uterus Adnexa: Right adnexa without tenderness. Left adnexa without tenderness. Normal left adnexa and normal right adnexa Assessment/Plan 1. Well woman exam Educated patient regarding self breast awareness. SBE monthly. Patient advised mammograms to begin at age 40 Encourage green leafy vegetables, lean meats and fruit in diet. Avoid fatty, fried, sugary foods. Increase H2O intake (1/2 body weight in ozs). Exercise 30 minutes daily x 7 days/week as tolerated. Follow up 1 year 2. Screen for STD (sexually transmitted disease) Reviewed safe sex practices - [facility] ONLY - VAGINAL PATHOGENS BY DNA PROBE - GC & CHLAMYDIA AMPLIFIED ASSAY 3. Vaginal discharge Labs pending - [facility] ONLY - VAGINAL PATHOGENS BY DNA PROBE - GC & CHLAMYDIA AMPLIFIED ASSAY 4. Dysuria UA WNL other than leuk esterase, urine culture pending - POCT URINALYSIS W/O SPECIFIC GRAVITY - URINE CULTURE 5. Encounter for other general counseling or advice on contraception D/w pt at length various BCMs including OCPs, Patch, Depo Provera, vaginal rings, condoms, implants and iuds. We discussed the risk/benefits/side effects of each. After discussion, pt declines contraception at this time - POCT TEST 6. Seizure disorder On topamax for bipolar, not followed by neurology Reports last seizure a couple of months ago 7. BMI 32.0-32.9,adult The patient is asked to make an attempt to improve diet and exercise patterns to aid in medical management of this problem. 8. Bipolar affective disorder, remission status unspecified Continue topamax F/u with [facility] 9. Need for HPV vaccination Administered today. VSS provided. - GARDASIL 9 (HPV 9V) VACCINE Return to clinic in 52 weeks. Discussed treatment options. Reviewed patient instructions and provided printed copy. This visit did not involve counseling and coordination that comprised more than 50% of the visit time. Calli trent LVN - 09/27/2019 2:00 PM CDT24 year old presented to the clinic for WWE. 1) Previous BCM:none 2) Desired BCM:none 3) LMP:08/08/2019 4) Last Sheyenne:09/23/2019 5) Last Pap:05/27/2018 Results:negative 6) Tdap in last 10 years?02/15/2018 HPV?one dose 05/17/2019 7) C/O Burning with urination, cloudy urine, vaginal odor, white thick discharge. 8) Patient denies history of physical, emotional, or sexual abuse. Patient states she currently feels safe at home. documented in this encounter Plan of Treatment Date Type Specialty Care Team Description 12/30/2019 Nurse Visit OB Satell[facility] Visit, [facility] Nurse Name Type Priority Associated Diagnoses Date/Ti me URINE CULTURE LAB Routine Dysuria 09/27/2019 2: 57 PM CDT [facility] ONLY - VAGINAL LAB Routine Screen for STD (sexua lly 09/27/2019 2:57 PM CDT PATHOGENS BY DNA PROBE transmitt ed disease) Vaginal discharge GC & CHLAMYDIA LAB Routine Screen for STD (sexually 0 09/27/2019 2:57 PM CDT AMPLIFIED ASSAY transmitted dise ase) Vaginal discharge Health Maintenance Due Date Last Done Comments HPV VACCINES (3 - Female 01/28/2020 09/27/2019, 05/17/2019 3-dose series) Depression Screening 05/16/2020 05/17/2019 INFLUENZA VACCINE (#1) 2020 12/14/2017 Postponed from 11/08/2019 (Refu sed) MENINGOCOCCAL B VACCINES (1 05/22/2020 Post poned from of 2 - Risk Bexsero 2-dose 01/24 (Insurance series) / Financial) CHLAMYDIA SCREENING 08/25/2020 08/26/2019, 06/21/2019, 05/17/2019, Additional history exists PAP SMEAR 05/27/2021 05/27/2018 DTaP,Tdap,and Td Vaccines 02/16/2028 02/15/2018, 04/03/2016 (3 - Td) VARICELLA VACCINES Discontinued 05/24/2016 MENINGOCOCCAL VACCINE Aged Out No longer eligible based on patient 's age to complete this topic PNEUMOCOCCAL 0-64 YEARS Aged Out No longe r eligible COMBINED SERIES based on patient 's age to complete this topic documented as of this encounter Procedures Procedure Name Priority Date/Time Associated Diagnosis Comme nts GARDASIL 9 (HPV 9V) Routine 09/27/2019 3:17 Need for HPV VACCINE PM CDT vaccination POCT URINALYSIS W/O Routine 09/27/2019 2:58 Dysuria Resu lts for this SPECIFIC GRAVITY PM CDT procedure a re in the results section. POCT TEST Routine 09/27/2019 2:41 Encounter for oth er Results for this PM CDT general counseling or proced ure are in advice on the results contraception section. documented in this encounter Results POCT URINALYSIS W/O SPECIFIC GRAVITY (09/27/2019 2:58 PM CDT) Pathologist Sig nature POCT PH U 6 5 - 8 mg/dl POCT U LEUK EST 2+ Negative - Negative POCT U NIT negative Negative - Negative POCT U PROT trace Negative - Negative POCT U GLU negative Negative - Negative POCT U KETONE negative Negative - Negative POCT U BLD negative Negative - Negative Specimen Urine - URINE, CLEAN CATCH POCT TEST (09/27/2019 2:41 PM CDT) Pathologist Sig nature POCT PREG Negative On board controls acceptable Yes with C Line POCT PREG LOT # POCT PREG TEST DATE Specimen Urine - URINE, CLEAN CATCH documented in this encounter Visit Diagnoses Diagnosis Encounter for other general counseling o r advice on contraception Screen for STD (sexually transmitted dis ease) Screening examination for venereal disea se Vaginal discharge Leukorrhea, not specified as infective Dysuria Seizure disorder Unspecified epilepsy without mention of intractable epilepsy BMI 32.0-32.9,adult Body Mass Index 32.0-32.9, adult Bipolar affective disorder, remission st atus unspecified Need for HPV vaccination Need for prophylactic vaccination and in oculation against other viral diseases documented in this encounter Insurance Payer Benefit Plan / Subscriber ID Effective Phone Address [facility] xxxxxxxxx 2017-Prese [address] Medic aid HEALTH CHOICE - [place] [id number] 1 MANAGED MEDICAID [place], [place] [id number] documented as of this encounter Advance Directives Name Relationship Healthcare Agent Relationship Co mmunication Maya Alvarez Mother Primary healthcare agent
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
--- OUTSIDE RECORDS SUMMARY | 2019-12-15 22:34 | XMS REPORT | Summary of Care ---
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 Encounter Details Date Type Department Care Team Description [facility]/27[facility]2019 [facility] Nick Wel l woman exam (Primary Dx); [facility] Screen for STD (sexually transmitted dis ease); [address] Vaginal discharge; Street [address] Dysuria; [place], [place] [address] Encounter for other general counseling o r advice on contraception; [address] Seizure disorder; [phone] BMI 32.0- 32.9,adult; Bipolar affecti ve disorder, [...] This exam may be done by a jigsaw operator, family healthcare provider, nurse practitioner, nurse hand ii tube bender, or specially trained nurse. Yearly breast exams [...] Guidelines for having clinical breast exams The [place] [employer] and Gynec[employer] recommends that [...] provider about what is best for you. [employer] romario reviewed this educational content on 10/07/201619990000-8697 The [employer]. [address] [place] [address]. All rights reserved. This information is not [...] breast self-examination (BSE). These experts include the [place] [employer] and the [place] [employer] of Obstetricians and Gynecologists. Some experts [...] benign. This means they are not cancer. [employer] romario reviewed this educational content on 10/07/201619997522-1648 The [employer], [employer]. [address] [place] [address]. All rights reserved. This information is not [...] 20s.But the USPSTF does not recommend CBE. [employer] last reviewed this educational content on 12/07/201619996914-9282 [employer]. [address] [place] [address]. All rights reserved. This information is not [...] can make now to protect your future. [employer] last reviewed this educational content on 02/06/201819997640-5311 [employer]. [address] [place] [address], [place] [address]. All rights reserved. This information is not [...] her child during , childbirth, and . [employer] last reviewed this educational content on 08/07/201819996479-5152 [employer]. [address] [place] [address]. All rights reserved. This information is not [...] try basil, cilantro, cinnamon, pepper, and crescencio. [employer] last reviewed this educational content on 12/07/201619999682-1392 [employer]. [address] [place] [address]. All rights reserved. This information is not intended as a substitute for professional medical care. Always follow your healthcare professional's instructions. Patient Education Understanding [employer] The USDA (U.S. Department of Agriculture) [...] get this muchfrom the food you eat. [employer] last reviewed this educational content on 10/07/201619994745-3105 The [employer]. [address] [place] [address]. All rights reserved. This information is not intended as a substitute for professional medical care. Always follow your healthcare professional's instructions. 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 Desires STD testing. Bipolar managed by [facility]. 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 Need for HPV vaccination Administered today. [...] 2) Desired BCM:none 3) LMP:08/08/2019 4) Last [place]:09/23/2019 5) Last Pap:05/27/2018 Results:negative 6) Tdap in last 10 years?02/15/2018 HPV?one dose 05/17/2019 7) C/O Burning with urination, cloudy urine, vaginal odor, white thick discharge. 8) Patient denies history of physical, emotional, or sexual abuse. Patient states she currently feels safe at home. documented in this encounter Plan of Treatment Date Type Specialty Care Team Description 12/30/2019 Nurse Visit OB Satellites Visit, [facility] Nurse Name Type Priority Associated Diagnoses Date/Ti [...] / Subscriber ID Effective Phone Address [facility] xxxxxxxxx 2017-Prese [address] Medic aid HEALTH CHOICE [place] [id number] 1 MANAGED MEDICAID [place], [place] [phone] documented as of this encounter Advance Directives Name Relationship Healthcare Agent Relationship Co mmunication Maya Alvarez Mother Primary healthcare agent
--- OUTSIDE RECORDS SUMMARY | 2019-12-15 22:34 | XMS REPORT | Summary of Care ---
:1995 Author Organization [facility] [employer] Address [address] [place] [address] Care Team Providers Name Role Phone Eddie Rosas Primary Care Provider Reason for Visit Reason Comments Lab Results Encounter Details Date Type Department Care Team Description 09/28/2019 Telephone [facility]- A Monique Herman FNP Lab Results [address] [place] [address] [address] [phone] [place], [place] [address] [phone] Allergies Active Allergy Reactions Severity Noted Date Comments Doxycycline Other - See comments 04/20/2019 seizure s Tramadol Other - See comments 04/20/2019 seizure s documented as of this encounter (statuses as of 09/28/2019) Medications Medication Sig Dispensed Refills Start Date End Date Status topiramate (TOPAMAX) Take 100 mg by 0 Active 100 mg tablet mouth. metroNIDAZOLE (FLAGYL) Take 1 tablet 14 tablet 0 09/28/2019 Active 500 mg by mouth 2 tabletIndications: (two) times Bacterial vaginitis daily for 7 days. documented as of this encounter (statuses as of 09/28/2019) Active Problems Problem Noted Date Pain pelvic 06/23/2019 Abnormal EKG 10/08/2017 History of seizure 08/19/2017 Over weight 08/19/2017 Bipolar affective disorder, remission status unspecifi ed 07/15/2016 Seizure disorder 02/15/2016 Overview: Epilepsy x's 2 years. Had genetic counse ling 01/18/16 per [place] [facility].-see external records-page 20-21 documented as of this encounter (statuses as of 09/28/2019) Resolved Problems Problem Noted Date Resolved Date [...] as of this encounter (statuses as of 09/28/2019) Immunizations Name Administration Dates Next Due HPV9 [...] Description 12/30/2019 Nurse Visit OB Satellites Visit, [facility] Nurse Health Maintenance Due Date Last Done Comments [...] filedocumented in this encounter Visit Diagnoses Diagnosis Bacterial vaginitis - Primary Vaginitis and vulvovaginitis, unspecifie d documented in this encounter Insurance Payer Benefit Plan / Subscriber ID Effective Phone Address T e Group Dates [facility] xxxxxxxxx 2017-Pre [address] Medicai d HEALTH CHOICE HEALTH CHOICE sent [id number] - [place]ED [place], [place] [address] [place]ACON BE[employer]ON [id number] 2017-Pre [phone] Behavio ral [facility] sent [phone] [facility] , [address]ED [address] [place] [address] documented as of this encounter Advance Directives Name Relationship Healthcare Agent Relationship Co mmunication Maya Alvarez Mother Primary healthcare agent
--- OUTSIDE RECORDS SUMMARY | 2019-12-15 22:34 | XMS REPORT | Summary of Care ---
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 fluconazole (DIFLUCAN) Take 1 tablet by 1 tablet 0 10/24/2019 10/24/2019 Active 150 mg mouth once now tabletIndications: for 1 dose. Candidiasis of vulva and vagina documented as of this encounter (statuses as of 10/24/2019) Active Problems Problem Noted Date Pain pelvic 06/23/2019 Abnormal EKG 10/08/2017 History of seizure 08/19/2017 Over weight 08/19/2017 Bipolar affective disorder, remission status unspecifi ed 07/15/2016 Seizure disorder 02/15/2016 Overview: Epilepsy x's 2 years. Had genetic counse ling 01/18/16 per [place] [facility].-see external records-page 20-21 documented as of this encounter (statuses as of 10/24/2019) Resolved Problems Problem Noted Date Resolved Date [...] as of this encounter (statuses as of 10/24/2019) Immunizations Name Administration Dates Next Due HPV9 [...] Assigned at Date Recorded Not on file COVID-19 Exposure Response Date Recorded In the last month, have you been in contact with No / Unsure 09/27/2019 2:19 PM CDT someone who was confirmed or suspected to have Coronavirus / COVID-19? documented as of this encounter Last Filed Vital Signs Not on filedocumented in this encounter Miscellaneous Notes Telephone Encounter - Calli Bryson LVN - 10/24/2019 9:21 AM MONIKAwilma Wang is a 24 year old female Patient informed prescription was sent to pharmacy, verbalized understanding. Telephone Encounter - Monique Nick FNP - 10/24/2019 9:04 AM CDTDiflucan Rx sent elephone Encounter - Calli Bryson LVN - 10/24/2019 8:52 AM MONIKAwilma Wang is a 24 year old female Patient stated she was prescribed Flagyl on 09/28/2019 and after started having vaginal itching and thick white discharge. Stated she tried Monistat 1 day OTC treatment but did not have relief. Stated she is now having severe vaginal itching and still having thick white discharge. Patient is requestingPO medication for yeast to be sent to pharmacy, informed message would be routed to provider, verbalized understanding. elephone Encounter - Rosie Jackson - 10/24/2019 8:26 AM KEYNAYELIwilma Wang is a 24 year old female Patient is calling stating she was prescribed antibiotics last month and since taking it she has developed a yeast inf. Patient tried otc meds that have not helped. Sx- itching, thick discharge. Patient is asking if something could be called in for her. Please call documented in this encounter Plan of Treatment Date Type Specialty Care Team Description 11/07/2019 Office Visit [facility], [facility] 11/07/2019 Initial Visit [facility] Arlyn Solis, [facility] [address] [place], [place] [address] [phone] 12/30/2019 Nurse Visit [facility] Visit, Ember Nurse Health Maintenance Due Date Last Done Comments INFLUENZA VACCINE (#1) 2019 12/14/2017 HPV VACCINES (3 - 3-dose 01/28/2020 09/27/2019, 05/17/2019 series) Depression Screening 05/16/2020 05/17/2019 MENINGOCOCCAL B VACCINES (1 05/22/2020 Post poned from of 2 - Risk Bexsero 2-dose 01/24 (Insurance series) / Financial) CHLAMYDIA SCREENING 09/26/2020 09/27/2019, 08/26/2019, 06/21/2019, Additional history exists PAP SMEAR 05/27/2021 05/27/2018 [...] filedocumented in this encounter Visit Diagnoses Diagnosis Candidiasis of vulva and vagina - Primar y documented in this encounter Insurance Payer Benefit Plan / Subscriber ID Effective Phone Address T ype Group [facility] [id number] 2017-Pre [address] HEALTH CHOICE HEALTH CHOICE sent [id number] - MANAGED [place], [place] [address] [place] [employer] [id number] 2017-Pre [phone] Behavio ral [facility] sent [id number] [facility] , MANAGED [address] [place] [address] documented as of this encounter Advance Directives Name Relationship Healthcare Agent Relationship Co mmunication Maya Alvarez Mother Health Care Agent
== END 2019-12-14 20:51 | disposition home or self-care (01) ==
LOC: ER 18:39
DX: J06.9 Acute upper respiratory infection, unspecified (principal); Z20.828 Contact with and (suspected) exposure to other viral communicable diseases; F31.9 Bipolar disorder, unspecified; Z88.1 Allergy status to other antibiotic agents; Z88.5 Allergy status to narcotic agent
CPT/HCPCS: 87804 ×2; 99284; U0002

== ENCOUNTER 2020-07-30 04:42 | Inpatient (IN) | payer OTHER ==
--- OUTSIDE RECORDS SUMMARY | 2020-07-30 04:54 | XMS REPORT | Continuity of Care Document ---
:1995 Author Organization [facility] t Address [address] [place] [address] Care Team Providers Name Role Phone Asked, Pcp Primary Care Physician Unavailable Herb Vasquez Attending Clinician Problems This patient has no known problems. Allergies, Adverse Reactions, Alerts This patient has no known allergies or adverse reactions. Social History Social Habit Start Date Stop Date Quantity Comments Source Tobacco use and 2019-01-02 2019-01-02 Never used Jayden Gleason ethodist exposure 00:00:00 00:00:00 Sex Ass[birth year] At [birth year] Jayden Gleason ethodist 00:00:00 00:00:00 Smoking Status Start Date Stop Date Source Never smoker [place] [facility] t Medications This patient has no known medications. Procedures This patient has no known procedures. Plan of Care Planned Activity Planned Date Details Comments Source Future Scheduled 2020-10-07 INFLUENZA VACCINE [place] [facility] Test 00:00:00 [code = INFLUENZA VACCINE] Future Scheduled 2018 Screening for [place] [place] thodist Test 00:00:00 malignant neoplasm of cervix (procedure) [code = 068960071] Future Scheduled 2015 Hepatitis C [facility] hodist Test 00:00:00 screening (procedure) [code = 995663179] Future Scheduled 2013 CHLAMYDIA SCREENING [place] [facility] Test 00:00:00 [code = CHLAMYDIA SCREENING] Future Scheduled 2009 COVID-19 VACCINE (1) [place] [facility] Test 00:00:00 [code = COVID-19 VACCINE (1)] Encounters Start End Encounter Admission Attending Care Care Encounter Source Date/Time Date/Time Type Type Clinicians Facility Department ID 2020-06-07 2020-06-07 Office DUANE Solis [id number] 10:50:31 11:18:03 Visit Enedina Estevez MOVING CONSULTANT [id number] [facility] [id number] MATERNAL [id number] & CHILD [address] [place] [address] 2019-01-02 2019-01-[address] [facility] [id number] 54 [place] 00:00:00 00:00:[address] Results This patient has no known results.
[2020-07-30 05:10] LABS: Absolute Lymphocytes (CBC) 5.3 K/uL (0.7-4.9); Basophils % 0.3 % (0-1.3); Hematocrit 40.2 % (36.0-45.0); MPV 8.6 fL (7.6-11.3)
[2020-07-30 05:26] LABS: Urine Blood 1+ (Negative); Urine Glucose Negative (Negative); Urine Protein Negative (Negative)
[2020-07-30] MEDS ORDERED: MORPHINE 4 MG/ML SYR ONE ×2 (05:32→08:30)
[2020-07-30] MEDS ORDERED: ONDANSETRON 4 MG/2 ML VIAL ONE (05:33)
[2020-07-30] MEDS ORDERED: NA CHLORIDE 0.9% 1,000 ML ONE ×4 (05:33→14:34)
[2020-07-30 05:35] LABS: ALT/SGPT 16 U/L (12-78); AST/SGOT 13 U/L (15-37); Albumin 3.7 g/dL (3.4-5.0); Alkaline Phosphatase 84 U/L (45-117); BUN Blood Urea Nitrogen 7 mg/dL (7-18); Bicarbonate 25 mmol/L (21-32); Bilirubin Direct < 0.1 mg/dL (0-0.2); Bilirubin Total 0.3 mg/dL (0.2-1.0); Glucose Level 102 mg/dL (74-106); Lipase 61 U/L (73-393); Potassium 3.3 mmol/L (3.5-5.1); Protein, Total 6.8 g/dL (6.4-8.2); Sodium Level 142 mmol/L (136-145)
[2020-07-30 06:09] LABS: Urine Bacteria <20 /HPF (<20); Urine RBC <5 /HPF (NONE SEEN); Urine Urothelial Cells <5 /HPF (NONE SEEN)
--- NOTE | 2020-07-30 09:30 | EDPHYS ---
Physician Documentation [facility] Name: Mile Wang Age: 25 yrs Sex: Female : 1995 Arrival Date: 07/30/2020 Time: 04:46 Bed 14 Private MD: JIM Physician Zen Villanueva HPI: 07/30 05:15 This 25 yrs old Female presents to ER via Ambulatory with complaints of pkl Abdominal Pain, Back Pain. 05:15 The patient presents with pain that is acute. pkl 05:16 The patient presents with abdominal pain that is diffuse. Onset: The symptoms/episode pkl began/occurred just prior to arrival. The symptoms do not radiate. Associated signs and symptoms: Pertinent positives: nausea. 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 - Social history:: Smoking status: Patient/guardian denies using. ROS: 05:16 Eyes: Negative for injury, pain, redness, and discharge, ENT: Negative for injury, pkl pain, and discharge, Neck: Negative for injury, pain, and swelling, Cardiovascular: Negative for chest pain, palpitations, and edema, Respiratory: Negative for shortness of breath, cough, wheezing, and pleuritic chest pain. 05:16 Abdomen/GI: Positive for abdominal pain, nausea, of the right upper quadrant, left upper quadrant, right lower quadrant and left lower quadrant. 05:16 Back: Negative for acute changes. 05:16 : Negative for urinary symptoms. 05:16 MS/extremity: Negative for acute changes. 05:16 Skin: Negative for rash. 05:16 Neuro: Negative for altered mental status, loss of consciousness. Exam: 05:16 Head/Face: Normocephalic, atraumatic. Eyes: Pupils equal round and reactive to light, pkl extra-ocular motions intact. Lids and lashes normal. Conjunctiva and sclera are non-icteric and not injected. Cornea within normal limits. Periorbital areas with no swelling, redness, or edema. ENT: Nares patent. No nasal discharge, no septal abnormalities noted. Tympanic membranes are normal and external auditory canals are clear. Oropharynx with no redness, swelling, or masses, exudates, or evidence of obstruction, uvula midline. Mucous membranes moist. Neck: Trachea midline, no thyromegaly or masses palpated, and no cervical lymphadenopathy. Supple, full range of motion without nuchal rigidity, or vertebral point tenderness. No Meningismus. Chest/axilla: Normal chest wall appearance and motion. Nontender with no deformity. No lesions are appreciated. Cardiovascular: Regular rate and rhythm with a normal S1 and S2. No gallops, murmurs, or rubs. Normal PMI, no JVD. No pulse deficits. Respiratory: Lungs have equal breath sounds bilaterally, clear to auscultation and percussion. No rales, rhonchi or wheezes noted. No increased work of breathing, no retractions or nasal flaring. 05:16 Abdomen/GI: Bowel sounds: normal, Palpation: soft, mild abdominal tenderness, in the right upper quadrant, left upper quadrant, right lower quadrant and left lower quadrant. 05:16 Back: Exam negative for acute changes. 05:16 : Exam negative for acute changes. 05:16 Musculoskeletal/extremity: Exam is negative for acute changes. 05:16 Skin: Exam negative for rash. 05:16 Neuro: Orientation: is normal, Mentation: is normal, Cranial nerves: grossly normal, Motor: is normal. Vital Signs: 04:54 BP 148 / 94; Pulse 66; Resp 18; Temp 98.4; Pulse Ox 100% ; Weight 77.11 kg; Height 5 wh ft. 3 in. (160.02 cm); Pain 9/10; 06:24 BP 115 / 68; Pulse 55; Resp 18; Pulse Ox 100% on R/A; wh 08:23 BP 120 / 88; Pulse 75; Resp 18; Pulse Ox 100% ; tr6 09:07 BP 113 / 60; Pulse 73; Resp 18; Pulse Ox 100% ; tr6 10:27 BP 117 / 72; Pulse 72; Resp 18; Pulse Ox 100% on R/A; tr6 04:54 Body Mass Index 30.11 (77.11 kg, 160.02 cm) MDM: 05:08 Patient medically screened. pkl 08:15 Patient medically screened. joe 09:26 Differential diagnosis: bowel obstruction, cholecystitis, Cholelithiasis, gastritis, GI joe Bleed, Hepatitis, Irritable bowel syndrome, non-specific abd pain, Peptic Ulcer Disease, Ureterolithiasis, urinary tract infection. Data reviewed: vital signs, nurses notes, lab test result(s), radiologic studies, CT scan, ultrasound. Data interpreted: shelter monitor: rate is 73 beats/min, rhythm is regular, Pulse oximetry: on room air is 10 %. Test interpretation: by ED physician or midlevel provider: plain radiologic studies. Counseling: I had a detailed discussion with the patient and/or guardian regarding: the historical points, exam findings, and any diagnostic results supporting the discharge/admit diagnosis, lab results, radiology results, the need for further work-up and treatment in the hospital. 07/30 04:56 Order name: Basic Metabolic Panel; Complete Time: 05:44 07/30 04:56 Order name: CBC with Diff; Complete Time: 05: 07/30 04:56 Order name: Hepatic Function; Complete Time: 05: 07/30 04:56 Order name: Lipase; Complete Time: 05: 07/30 04:56 Order name: Urine Microscopic Only; Complete Time: 06:49 07/30 05:25 Order name: Urine Dipstick-Ancillary; Complete Time: 05:44 EDMS 07/30 05:09 Order name: CT Abd/Pelvis - IV Contrast Only pkl 07/30 05:44 Order name: Urine --Ancillary (enter results); Complete Time: 06:49 tt3 07/30 07:35 Order name: US Abdomen Limited; Complete Time: 11:51 pkl 07/30 09:25 Order name: [place]; Complete Time: 11:51 joe 07/30 09:25 Order name: PT-INR; Complete Time: 11:51 joe 07/30 09:25 Order name: Ptt, Activated; Complete Time: 11:51 joe 07/30 11:35 Order name: SARS-COV-2 RT PCR; Complete Time: 11:51 EDMS 07/30 04:56 Order name: IV Saline Lock; Complete Time: 05: 07/30 04:56 Order name: Labs collected and sent; Complete Time: : 07/30 04:56 Order name: Urine Dipstick-Ancillary (obtain specimen); Complete Time: 05:19 07/30 04:56 Order name: Urine Test (obtain specimen); Complete Time: 05:19 07/30 08:21 Order name: Cholangiogram; Complete Time: 11:51 [facility] 07/30 10:29 Order name: CONS Physician Consult [facility] 07/30 10:29 Order name: NPO EDKS 07/30 11:56 Order name: EKG; Complete Time: 11:56 [facility] 07/30 11:56 Order name: EKG - Nurse/Tech [facility] Administered Medications: 05:14 Drug: NS 0.9% 1000 ml Route: IV; Rate: 1000 ml; Site: right antecubital; 05:57 Follow up: Response: No adverse reaction; IV Status: Completed infusion 05:16 Drug: morphine 4 mg {Note: RASS 0.} Route: IVP; Site: right antecubital; 05:57 Follow up: Response: No adverse reaction; Pain is decreased; RASS: Alert and Calm (0) 05:18 Drug: Zofran (Ondansetron) 4 mg Route: IVP; Site: right antecubital; 05:57 Follow up: Response: No adverse reaction 05:56 Drug: Potassium Chloride 20 mEq Route: IV; Rate: calculated rate; Site: right antecubital; 08:13 Drug: morphine 4 mg Route: IVP; Site: right antecubital; tr6 Disposition: 07/30/20 09:29 Hospitalization ordered by Shahid Graham for Observation. Preliminary diagnosis are Abdominal tenderness, Cholecystitis, Cholelithiasis, Bipolar disorder. - Bed requested for Telemetry/MedSurg (Inpatient). - Status is Observation. ll1 - Condition is Stable. - Problem is new. - Symptoms have improved. Signatures: Dispatcher [employer] EDKS Misa Abbasi Corey, MD MD cha Lam, Pin, MD MD pkl Habalo, Winsy, RN RN Stella Aldridge RN RN ll1 Earnestine Solis RN RN tr6 Corrections: (The following items were deleted from the chart) 09:51 08:45 CORONAVIRUS+MR.LAB.BRZ ordered. [facility] EDKS 13:00 09:29 Hospitalization Ordered by Shahid Graham for Observation. Preliminary diagnosis bd is Abdominal tenderness; Cholecystitis; Cholelithiasis; Bipolar disorder. Bed requested for Telemetry/MedSurg (Inpatient). Status is Observation. Condition is Stable. Problem is new. Symptoms have improved. joe 13:03 13:00 07/30/2020 09:29 Hospitalization Ordered by Shahid Graham for Observation. ll1 Preliminary diagnosis is Abdominal tenderness; Cholecystitis; Cholelithiasis; Bipolar disorder. Bed requested for Telemetry/MedSurg (Inpatient). Status is Observation. Condition is Stable. Problem is new. Symptoms have improved. bd
--- NOTE | 2020-07-30 09:30 | ER ---
Nurse's Notes [facility] Name: Mile Wang Age: 25 yrs Sex: Female : 1995 Arrival Date: 07/30/2020 Time: 04:46 Bed 14 Private MD: Diagnosis: Abdominal tenderness;Cholecystitis;Cholelithiasis;Bipolar disorder Presentation: 07/30 04:54 Chief complaint: Patient states: abdominal and back pain that just started, Pt states wh Hx of Kidney stones. Coronavirus screen: Client denies travel out of the [place] in the last 14 days. Client indicates they have traveled out of the [place] in the last 14 days. Ebola Screen: Patient negative for fever greater than or equal to 101.5 degrees Fahrenheit, and additional compatible Ebola Virus Disease symptoms Patient denies exposure to infectious person. Initial Sepsis Screen: Does the patient meet any 2 criteria? No. Patient's initial sepsis screen is negative. Does the patient have a suspected source of infection? Yes: Acute abdominal pain. Risk Assessment: Do you want to hurt yourself or someone else? Patient reports no desire to harm self or others. Onset of symptoms was July 30, 2020. 04:54 Method Of Arrival: Ambulatory 04:54 Acuity: BAIRON 3 Triage Assessment: 04:58 General: Appears in no apparent distress. uncomfortable, Behavior is cooperative, wh appropriate for age, crying. Pain: Complains of pain in abdominal and back pain Pain currently is 9 out of 10 on a pain scale. Quality of pain is described as sharp, Pain began suddenly. EENT:. Neuro: Level of Consciousness is awake, alert, obeys commands, Oriented to person, place, time, situation, Appropriate for age. Cardiovascular: Capillary refill < 3 seconds. Respiratory: Airway is patent Respiratory effort is even, unlabored, Respiratory pattern is regular, symmetrical. GI: Abdomen is flat, non-distended, Reports lower abdominal pain, upper abdominal pain. : No signs and/or symptoms were reported regarding the genitourinary system. Derm: Skin is intact, is healthy with good turgor, Skin is pink, warm \T\ dry. normal. Musculoskeletal: Circulation, motion, and sensation intact. 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 - Social history:: Smoking status: Patient/guardian denies using. Screenin:56 Abuse screen: Denies threats or abuse. Denies injuries from another. Nutritional screening: No deficits noted. Tuberculosis screening: No symptoms or risk factors identified. Fall Risk None identified. Assessment: 05:06 GI: Bowel sounds present X 4 quads. Abd is soft X 4 quads. 06:24 Reassessment: Patient appears in no apparent distress at this time. No changes from previously documented assessment. Patient and/or family updated on plan of care and expected duration. Pain level reassessed. Patient is alert, oriented x 3, equal unlabored respirations, skin warm/dry/pink. 07:00 Reassessment: assumed care of pt resting comfortably in bed. pt denies need for tr6 assistance at this time. will continue to monitor. 08:42 Reassessment: pt transferred to MRI via wheelchair. tr6 09:06 Reassessment: pt returned from MRI. tr6 Vital Signs: 04:54 BP 148 / 94; Pulse 66; Resp 18; Temp 98.4; Pulse Ox 100% ; Weight 77.11 kg; Height 5 ft. 3 in. (160.02 cm); Pain 9/10; 06:24 BP 115 / 68; Pulse 55; Resp 18; Pulse Ox 100% on R/A; 08:23 BP 120 / 88; Pulse 75; Resp 18; Pulse Ox 100% ; tr6 09:07 BP 113 / 60; Pulse 73; Resp 18; Pulse Ox 100% ; tr6 10:27 BP 117 / 72; Pulse 72; Resp 18; Pulse Ox 100% on R/A; tr6 04:54 Body Mass Index 30.11 (77.11 kg, 160.02 cm) ED Course: 04:46 Patient arrived in ED. am4 04:47 Wandy Barton, RN is Primary Nurse. 04:55 Triage completed. 05:04 Inserted saline lock: 20 gauge in right antecubital area, using aseptic technique. tt3 Blood collected. 05:04 Initial lab(s) drawn, by me, sent to lab. tt3 05:05 Arm band placed on right wrist. wh 05:05 Patient has correct armband on for positive identification. Placed in gown. Bed in low wh position. Call light in reach. Side rails up X 1. Pulse ox on. NIBP on. 05:08 Sukumar Rivero MD is Attending Physician. pkl 06:22 CT Abd/Pelvis - IV Contrast Only In Process Unspecified. EDMS 07:20 Primary Nurse role handed off by Wandy Barton RN bd 07:53 US Abdomen Limited In Process Unspecified. EDMS 08:09 Earnestine Solis RN is Primary Nurse. tr6 08:15 Attending Physician role handed off by Sukumar Rivero MD cha 08:15 Zen Villanueva MD is Attending Physician. joe 08:54 Cholangiogram In Process Unspecified. EDMS 09:28 Shahid Graham is Hospitalizing Provider. joe Administered Medications: 05:14 Drug: NS 0.9% 1000 ml Route: IV; Rate: 1000 ml; Site: right antecubital; 05:57 Follow up: Response: No adverse reaction; IV Status: Completed infusion 05:16 Drug: morphine 4 mg {Note: RASS 0.} Route: IVP; Site: right antecubital; 05:57 Follow up: Response: No adverse reaction; Pain is decreased; RASS: Alert and Calm (0) 05:18 Drug: Zofran (Ondansetron) 4 mg Route: IVP; Site: right antecubital; 05:57 Follow up: Response: No adverse reaction 05:56 Drug: Potassium Chloride 20 mEq Route: IV; Rate: calculated rate; Site: right wh antecubital; 08:13 Drug: morphine 4 mg Route: IVP; Site: right antecubital; tr6 Outcome: 09:29 Decision to Hospitalize by Provider. joe 13:03 Patient left the ED. ll1 Signatures: Dispatcher [employer] EDMS GalejoneAnanyaMisa Zen Bae MD MD cha Lam, Pin, MD MD pkWandy Harris RN RN Stella Aldridge RN RN ll1 Panchito Snyder tt3 Ebony Huerta Earnestine Solis RN RN tr6 Corrections: (The following items were deleted from the chart) :08 09:07 Reassessment: assumed care of pt resting comfortably in bed. pt denies need for tr6 assistance at this time. will continue to monitor tr6
--- NOTE | 2020-07-30 09:31 | RAD REPORT ---
EXAM DESCRIPTION: MRI - Cholangiogram - 07/30/2020 8:56 am CLINICAL HISTORY: Abdominal pain, abnormal CT study COMPARISON: Right upper quadrant ultrasound same date, CT abdomen and pelvis same date TECHNIQUE: Axial and coronal heavily T2 weighted sequences were obtained. Coronal T2 HASTE fat satur ation static and coronal multiplane reconstruction imaging generated and reviewed. Horizontal and arslan tical axis rotational views obtained using maximum intensity projection (MIP) protocol. FINDINGS: Axial and coronal source images show no suspicious liver, spleen or pancreatic finding. No renal or adrenal gross abnormality seen. There is no ascites or lymphadenopathy of the upper abdomen . Multi stone cholelithiasis is present. Cystic duct stone is evident. Biliary tree is 8 mm in maximum diameter. No common duct stone, stricture or mass identifiable. IMPRESSION: No choledocholithiasis or significant biliary tree finding. Multi stone cholelithiasis including small cystic duct stone.
--- NOTE | 2020-07-30 10:12 | RAD REPORT ---
EXAM DESCRIPTION: CT - Abdomen Pelvis W Contrast - 07/30/2020 7:06 am CLINICAL HISTORY: The patient is 25 years old and is Female; ABD PAIN TECHNIQUE: Axial computed tomography images of the abdomen and pelvis with intravenous contrast. S agittal and coronal reformatted images were created and reviewed. This CT exam was performed using one or more of the following dose reduction techniques: automated exposure control, adjustment of t he mA and/or kV according to patient size, and/or use of iterative reconstruction technique. COMPARISON: No relevant prior studies available. FINDINGS: Lung bases: Unremarkable. No mass. No consolidation. ABDOMEN: Liver: There is mild intrahepatic biliary dilatation. Gallbladder and bile ducts: Cholelithiasis with the suggestion of a small amount of pericholecyst ic fluid. Common bile duct measures 9 mm in diameter. Pancreas: Unremarkable. No mass. No ductal dilation. Spleen: Unremarkable. No splenomegaly. Adrenals: Unremarkable. No mass. Kidneys and ureters: Unremarkable. No solid mass. No hydronephrosis. Stomach and bowel: Unremarkable. No obstruction. No mucosal thickening. PELVIS: Appendix: The appendix is normal. Bladder: Unremarkable. No mass. Reproductive: Unremarkable as visualized. ABDOMEN and PELVIS: Intraperitoneal space: Unremarkable. No free air. No significant fluid collection. Bones/joints: No acute fracture. No dislocation. Soft tissues: Unremarkable. Vasculature: Unremarkable. No abdominal aortic aneurysm. Lymph nodes: Unremarkable. No enlarged lymph nodes. IMPRESSION: 1. Cholelithiasis with the suggestion of a small amount of pericholecystic fluid. Co nsider right upper quadrant ultrasound for further evaluation if there is any concern for cholecystit is. 2. There is mild intrahepatic biliary dilatation. 3. Common bile duct measures 9 mm in diameter. 4. The appendix is normal. Electronically signed by: Juan Canchola MD 07/30/2020 6:48 AM CDT Due to temporary technical issues with the PACS/Fluency reporting system, reports are being signed by the in house radiologists without review as a courtesy to insure prompt reporting. The interpreting radiologist is fully responsible for the content of the report.
[2020-07-30 10:25] LABS: Protime INR 0.91
[2020-07-30] MEDS ORDERED: PIPER/TAZO/NS 3.375gm 3.375 GM/100 ML BAG IVPB SCH (11:00)
--- NOTE | 2020-07-30 11:00 | RAD REPORT ---
EXAM DESCRIPTION: US - Abdomen Exam Limited - 07/30/2020 7:53 am CLINICAL HISTORY: ABD PAIN COMPARISON: Abdomen Pelvis W Contrast dated 07/30/2020 FINDINGS: Gallbladder size is normal. Multiple small gallstones are present including a small gallst one in the cystic duct. Sludge is present minimal in quantity. Small amount of pericholecystic fluid is present. Gallbladder wall is not abnormally thickened. Common bile duct is normal with no common d uct stone identified. Partially imaged liver shows no focal lesion. IMPRESSION: Multiple gallstones small in size including a small stone in the cystic duct. Pericholecystic fluid is present without wall thickening. No biliary tree abnormality seen. These findings are equivocal for acute cholecystitis and need correlation with any additional imaging , lab and physical exam findings.
[2020-07-30] MEDS ORDERED: GLUCAGON 1 MG/VIAL ONE (12:32)
[2020-07-30] MEDS ORDERED: GENTAMICIN SULF 80 MG/2ML INJ ONE (12:33)
[2020-07-30] MEDS ORDERED: FENTANYL CITR 100 MCG/2 ML ONE (12:55)
[2020-07-30] MEDS ORDERED: MIDAZOLAM HCL 2 MG/2 ML INJ ONE (12:55)
[2020-07-30] MEDS ORDERED: LIDOCAINE 1% MPF 5 ML VIAL ONE (12:56)
[2020-07-30] MEDS ORDERED: propofoL 200 MG/20 ML VIAL IV ONE (12:56)
--- NOTE | 2020-07-30 13:29 | ENDO RPT ---
[address], [address] ERCP PROCEDURE REPORT EXAM DATE: 07/30/2020 PATIENT NAME: Mile Wang MR #: [id number] BIRTHDATE: 1995 ATTENDING: Cheo Galvin Dr STATUS: inpatient - 7 IMPROVEMENT LEAD: Nia Jackson CST, Lola Yeager RN, Diana Kinsey RN, and [place]ida SU INDICATIONS: The patient is a 25 yr old Female here for an ERCP due to stone in cystic on MRCP, abnormal imaging (MRCP), RUQ abdominal pain, and abnormal PROCEDURE PERFORMED: ERCP with sphincterotomy and ERCP with stent placement MEDICATIONS: Per Anesthesia. CONSENT: The patient understands the risks and benefits of the procedure and understands that these risks include, but are not limited to: sedation, allergic reaction, infection, perforation and/or bleeding. Alternative means of evaluation and treatment include, among others: physical exam, x-rays, and/or surgical intervention. The patient elects to proceed with this endoscopic procedure. DESCRIPTION OF PROCEDURE: During intra-op preparation period all mechanical medical equipment was checked for proper function. Hand hygiene and appropriate measures for infection prevention was taken. Procedure, possible complications, and alternatives including but not limited to the possibility of bleeding, perforation, tear, infection, sepsis, need for surgery, need for blood transfusion, and anesthesia related complications were explained to the patient. In addition, 5-30% incidence of acute pancreatitis as a result of ERCP were explained. After the risks, benefits and alternatives of the procedure were thoroughly explained, Informed was verified, confirmed and timeout was successfully executed by the treatment team. With the patient in left semi-prone position, medications were administered intravenously.The [id number] ([id number]) was passed from the mouth into the esophagus and further advanced from the esophagus into the stomach. From stomach scope was directed to the second portion of the duodenum. Major papilla was aligned with the duodenoscope. The scope position was confirmed fluoroscopically. Rest of the findings/therapeutics are given below. The scope was then completely withdrawn from the patient and the procedure completed. The pulse, BP, and O2 saturation were monitored and documented by the physician and the nursing staff throughout the entire procedure. The patient was cared for as planned according to standard protocol. The patient was then discharged to recovery in stable condition and with appropriate post procedure care. The pancreatic duct was filled to the body of pancreas and appeared to be normal. Care was taken not to overfill the ductal system. Cannulation of the common bile duct was accomplished. The common bile duct and intrahepatics were normal without filling defects, strictures, or stones. ADVERSE EVENT: There were no complications. IMPRESSIONS: 1. The pancreatic duct was filled to the body of pancreas and appeared to be normal. Care was taken not to overfill the ductal system. 2. Cannulation of the common bile duct was accomplished. The common bile duct and intrahepatics were normal without filling defects, strictures, or stones. Cystic duct not well visualized. 3. S/p sphincterotomy and 4. 7-5 plastic stent placement RECOMMENDATIONS: 1. cholecystectomy as per surgery 2. antibiotics 3. follow-up: GI clinic 1 month(s) REPEAT EXAM: Return in 3 week(s) for ERCP. Cheo Galvin Dr eSigned: Cheo Galvin Dr 07/30/2020 1:28 PM cc: CPT CODES: ICD9 CODES: PATIENT NAME: Mile Wang MR#: [id number]
[2020-07-30] MEDS: MORPHINE 4 MG/ML SYR ONE ×2 (13:38→13:43)
[2020-07-30] MEDS ORDERED: PROMETHAZINE INJ 25 MG/ML AMP ONE (13:55)
[2020-07-30 14:44] VITALS: BMI 30.1
[2020-07-30] MEDS ORDERED: NA CHLORIDE 0.9% 1,000 ML IV SCH ×2 (15:00)
[2020-07-30] MEDS: PIPER/TAZO/NS 3.375gm 3.375 GM/100 ML BAG IVPB SCH (15:35)
[2020-07-30] MEDS: LITHIUM CARBONATE 300 MG TAB PO SCH ×3 (15:35→21:55)
--- NOTE | 2020-07-30 15:41 | CON ---
Date of Consultation: 07/30/2020 Reason For Consultation: Choledocholithiasis with positive MRCP for a stone in the cystic duct. History Of Present Illness: The patient is a 25-year-old white female with history of generalized an xiety disorder, bipolar disorder and psychogenic seizures, who presented to hospital with right upper quadrant pain, nausea, found to have cholelithiasis and cholecystitis. Imaging revealed a possible stone in the cystic duct on the ultrasound. MRCP confirms small stone in the cystic duct. There wer e also small stones in the gallbladder. The patient denies any emesis, fevers, chills, jaundice, but she has had a right upper quadrant pain that does radiate to her back, but no melena, hematochezia, hematemesis, coffee-ground emesis, hematuria, dysuria, polydipsia, chest pain, shortness of breath. No syncope. She has had seizures in the past, but none recently. Social History: Single, has a son and a daughter. No tobacco. No alcohol. Works as a [employer]. Family History: She is adopted, does not know her mother or father. Medications: At home include lithium and buspirone. Allergies: TO ULTRAM AND DOXYCYCLINE. Physical Examination: Vital Signs: She is 97.6 degrees Fahrenheit, pulse 73, respirations 16, blood pressure 123/65, O2 sa turation 100%. She is 5 feet, 370 pounds, BMI of 30.1 kg/m2. General: She is a slightly obese female, lying in bed, in no acute distress. HEENT: Normocephalic, atraumatic. Anicteric. Pupils equal, round, and reactive to light. Anicteri c. Extraocular movements intact. Oropharynx clear. Neck: Supple. No masses. Respirations: Clear to auscultation bilaterally. Cardiac: Regular rate and rhythm. No gallops. Abdomen: Positive bowel sounds. Soft. Right upper quadrant pain. Positive Agosto sign. No perito el signs. No rebound. She does have some slight guarding, however. Extremities: No clubbing, cyanosis, or edema. 2+ pulses. Neuro: Alert and oriented x3. Grossly nonfocal. 5/5 motor, sensation intact to light touch. Laboratory Data: The patient has a white count of 13.7, hemoglobin 13.3, hematocrit 40, MCV of 87, p latelet count of 318, polys of 53%, lymphocytes 39%, monocytes 6%, eosinophils 3%. The patient has a PT of 10.4, INR of 1.0, PTT of 30.9. Sodium 142, potassium 3.3, chloride 110, bicarb 25, BUN of 7, creatinine of 0.7, glucose 102, calcium 8.7, total bilirubin 0.3, direct bilirubin 0.1, AST of 13, AL T of 16, alkaline phosphatase 84, total protein 6.9, albumin 3.7, lipase 61. She got blood of 1+, ot herwise negative. test is negative. Toxicology; lithium is 0.4. Serology; COVID-19 testi ng was negative on PCR swab. CT abdomen and pelvis revealed cholelithiasis suggests a small amount o f pericholecystic fluid consistent with cholecystitis with mild intrahepatic biliary dilatation, comm on bile duct measures 9 mm. Appendix is normal. Ultrasound of abdomen reveals multiple gallstones, small in size in the gallbladder and a small stone in the cystic duct. Pericholecystic fluid is pres ent without wall thickening consistent with choledocholithiasis and cystic duct and cholecystitis wit h cholelithiasis. MRCP confirms small stone in the cystic duct and gallstones in gallbladder. Impression: 1.Cholelithiasis, cholecystitis, right upper quadrant pain, nausea. No emesis, fevers, chills, shelby dice. CT and ultrasound confirmed gallstones in the gallbladder and gallbladder inflammation, perich olecystic fluid. 2.Choledocholithiasis on an MRCP. Stone was seen in the cystic duct that was small. 3.History of generalized anxiety disorder, bipolar disorder, psychogenic seizures. Recommendations: 1.Keep the patient n.p.o. 2.Check PT, PTT. This has been done. 3.Proceed with ERCP. 4.IV fluids and IV antibiotics. 5.Continue p.r.n. pain medications, antiemetics. REYMUNDO/JOSEFINA Voice ID: [id number] Report ID: [id number]
[2020-07-30] MEDS: MORPHINE 2 MG/ML SYR IV PRN ×2 (18:45→23:16)
--- NOTE | 2020-07-30 19:07 | P.HP ---
Certification for Inpatient Patient admitted to: Inpatient With expected LOS: >2 Midnights Practitioner: I am a practitioner with admitting privileges, knowledge of patient current condition, hospital course, and medical plan of care. Services: Services provided to patient in accordance with Admission requirements found in Title 42 Section 412.3 of the Code of Federal Regulations Patient History Date of Service: 07/30/20 Reason for admission: Abdominal pain History of Present Illness: 25-year-old woman with a history of bipolar disorder, seizure disorder presented to the emergency department with a complaint of sudden onset of abdominal pain, back pain and nausea. CT abdomen and pelvis done in the emergency department showed cholelithiasis and mild intrahepatic biliary ductal dilatation. MRCP done showed multi stone cholelithiasis and cystic duct stone, no choledocholithiasis. GI was consulted to evaluate. Patient was admitted for further management. Allergies No Known Drug Allergies Allergy (Verified 12/02/14 04:52) Unknown doxycycline Adverse Reaction (Verified 07/30/20 14:40) Nausea/Vomiting tramadol Adverse Reaction (Verified 07/30/20 14:40) Nausea/Vomiting No Known Allergies Allergy (Uncoded 07/17/15 19:15) Unknown Home Medications: Buspirone HCl [Buspar*] 1 tab PO BID 07/30/20 [place] Carbonate [[place] Carbonate ER] 2 tab PO BID 07/30/20 - Past Medical/Surgical History Has patient received pneumonia vaccine in the past: No Diabetic: No -: Anxiety -: Bipolar -: Seizure -: tonsillectomy - Family History Father -: Diabetes Mother -: Other (see notes) (Patient was adopted.) Notes: bipolar - Social History Smoking Status: Never smoker Alcohol use: No CD- Drugs: No Caffeine use: No Place of Residence: Home Review of Systems Other: Except as documented, all other systems reviewed and negative. Physical Examination - Vital Signs Temperature: 97.1 F Blood Pressure: 117/56 Pulse: 52 Respirations: 14 Pulse Ox (%): 100 - Physical Exam General: Alert, In no apparent distress, Oriented x3 HEENT: Atraumatic, PERRLA, Mucous membr. moist/pink, Sclerae nonicteric Neck: Supple, JVD not distended Respiratory: Clear to auscultation bilaterally, Normal air movement Cardiovascular: No edema, Regular rate/rhythm, Normal S1 S2, No murmurs Capillary refill: <2 Seconds Gastrointestinal: Normal bowel sounds, Soft and benign, Non-distended, Tenderness (Moderate right upper quadrant tenderness) Musculoskeletal: No swelling, No tenderness Integumentary: No rashes, No erythema Neurological: Normal speech, Normal strength at 5/5 x4 extr, Cranial nerves 3-12 intact Lymphatics: No axilla or inguinal lymphadenopathy - Studies Laboratory Data (last 24 hrs) 07/30/20 09:45: PT 10.4, INR 0.91, APTT 30.9 07/30/20 04:58: WBC 13.70 H, Hgb 13.3, Hct 40.2, Plt Count 318 07/30/20 04:58: Sodium 142, Potassium 3.3 L, BUN 7, Creatinine 0.69, Glucose 102, Total Bilirubin 0.3, AST 13 L, ALT 16, Alkaline Phosphatase 84, Lipase 61 L Assessment and Plan - Problems (Diagnosis) (1) Acute cholecystitis Current Visit: Yes Status: Acute (2) Calculus of cystic duct Current Visit: Yes Status: Acute (3) Bipolar disorder Current Visit: Yes Status: Chronic (4) Seizure disorder Current Visit: Yes Status: Chronic - Plan Patient admitted to the medical floor. GI consulted. Patient seen by Dr. Galvin. ERCP performed, sphincterotomy and stent placement done. Patient will need lap cholecystectomy. General surgery-Dr. Huerta consulted. Empiric IV Zosyn Resume home med-lithium and Buspirone. Patient states she stopped taking her antiseizure medications several years ago. Her last seizure episode was more than 1 year ago. Monitor CBC, LFT and electrolytes. - Advance Directives Does patient have a Living Will: No Does patient have a Durable POA for Healthcare: No
[2020-07-30] MEDS ORDERED: KETOROLAC 30 MG/ML INJ IV ONE (19:55)
[2020-07-30] MEDS ORDERED: DIPHENHYDRAMINE 50 MG/ML VIAL IV ONE (19:55)
[2020-07-30] MEDS: NA CHLORIDE 0.9% 1,000 ML IV SCH (21:01)
[2020-07-30] MEDS: KCL 20 MEQ/100 mL IVPB 20 MEQ/100 ML BAG IV SCH (21:02)
[2020-07-30] MEDS: BUSPIRONE HCL 5 MG TABLET PO SCH (21:04)
[2020-07-30] MEDS ORDERED: LITHIUM CARBONATE 300 MG TAB ONE (21:47)
[2020-07-31] MEDS: KCL 20 MEQ/100 mL IVPB 20 MEQ/100 ML BAG IV SCH (00:27)
[2020-07-31] MEDS: PIPER/TAZO/NS 3.375gm 3.375 GM/100 ML BAG IVPB SCH ×3 (00:34→17:46)
[2020-07-31 04:03] LABS: Absolute Lymphocytes (CBC) 2.7 K/uL (0.7-4.9); Basophils % 0.4 % (0-1.3); Hematocrit 34.7 % (36.0-45.0); Lymphocytes % 32.7 % (15.3-44.8); MPV 8.9 fL (7.6-11.3); RBC Red Blood Cell Count 3.98 M/uL (3.86-4.86)
[2020-07-31] MEDS: MORPHINE 2 MG/ML SYR IV PRN ×3 (04:40→13:56)
[2020-07-31 05:12] LABS: ALT/SGPT 14 U/L (12-78); AST/SGOT 12 U/L (15-37); Albumin 3.1 g/dL (3.4-5.0); Alkaline Phosphatase 60 U/L (45-117); BUN Blood Urea Nitrogen 4 mg/dL (7-18); Bicarbonate 24 mmol/L (21-32); Bilirubin Total 0.6 mg/dL (0.2-1.0); Glucose Level 85 mg/dL (74-106); HDL Cholesterol 45 mg/dL (40-60); LDL Cholesterol, Calculated 38 (<130); Magnesium 2.3 mg/dL (1.8-2.4); Phosphorus 3.2 mg/dL (2.5-4.9); Potassium 3.9 mmol/L (3.5-5.1); Protein, Total 5.7 g/dL (6.4-8.2); Sodium Level 146 mmol/L (136-145)
[2020-07-31] MEDS: BUSPIRONE HCL 5 MG TABLET PO SCH ×2 (09:53→22:23)
[2020-07-31] MEDS: LITHIUM CARBONATE 300 MG TAB PO SCH ×2 (09:53→22:22)
[2020-07-31] MEDS: ONDANSETRON 4 MG/2 ML VIAL IV PRN (09:59)
--- NOTE | 2020-07-31 12:38 | P.PN ---
Subjective Date of Service: 07/31/20 Chief Complaint: Abdominal pain Subjective: No new changes (s/p ERCP yesterday, stent placed. pt reports no significant change in symptoms. no acute events overnight. Pt reports no relief from pain medication, but nursing staff and myself note patient sleeping/resting comfortably when first walk into room on multiple occasions) Review of Systems 10-point ROS is otherwise unremarkable Physical Examination - Vital Signs Temperature: 98.4 F Blood Pressure: 105/62 Pulse: 55 Respirations: 20 Pulse Ox (%): 99 Assessment & Plan Physician Review Additional Text: Physical Exam General: Alert, NAD HEENT: Normal conjunctiva, sclerae anicteric Respiratory: Clear to auscultation bilaterally, Normal air movement Cardiovascular: No edema, Regular rate/rhythm, Normal S1 S2, No murmurs Gastrointestinal: Soft, moderate tenderness to palpation in right upper quadrant Musculoskeletal: No swelling, No tenderness Integumentary: No rashes, No erythema Neurological: Normal speech, Normal strength at 5/5 x4 extr Assessment and Plan Acute cholecystitis Calculus of cystic duct Bipolar disorder Seizure disorder -GI consulted. Patient seen by Dr. Galvin. s/p ERCP on 07/30 with sphincterotomy and stent placement -Patient will need lap cholecystectomy. General surgery-Dr. Huerta consulted. -continue Empiric IV Zosyn, NPO except meds, IVF -Resume home med-lithium and Buspirone. Patient states she stopped taking her antiseizure medications several years ago. Her last seizure episode was more than 1 year ago. -Monitor CBC, LFT and electrolytes. -continue morphine for pain control - pt appears comfortable and sleeping throughout shift despite stating medication is not helping Code: full Dispo: anticipate dc home in 1-2 days, pending surgery eval / cholecystectomy Time Spent Managing Pts Care (In Minutes): 35
[2020-07-31] MEDS: NA CHLORIDE 0.9% 1,000 ML IV SCH ×2 (13:53→13:55)
--- NOTE | 2020-07-31 13:54 | CON ---
Date of Consultation: 07/31/2020 Reason For Service: Acute cholecystitis, symptomatic cholelithiasis. History Of Present Illness: This is the case of a 25-year-old patient, who started to develop epigas tric right upper quadrant pain radiating to the back. The patient came yesterday, diagnosed with ulc erated common bile duct. MRCP was done. GI consult was obtained today and a surgical consult was ob tained. I just noticed the patient right now. She feels better, but she still has epigastric right upper quadrant pain. She recently started eating at [employer], a fast food restaurant and she is trying to eat a little bit more grease than usual. She has history of anxiety and she takes medication for that. She denies any recent traveling out of the country. Denies any family member sick at home. Denies any trauma. Allergies: DOXYCYCLINE AND TRAMADOL. Medications: Include BuSpar, lithium. Past Medical History: Medical problems include bipolar disorder, seizures, tonsillectomy, anxiety. Social History: She does not smoke. She does not drink alcohol. Family History: Diabetes. Review of Systems: See H and P. Ten points otherwise unremarkable. Physical Examination: General: The patient is awake, alert. HEENT: Pupils are equal and reactive. Anicteric. Neck: Supple. Chest: Clear. Abdomen: Epigastric right upper quadrant pain. Agosto sign positive. Extremities: Good capillary refill. Breasts: Deferred. Pelvic: Deferred. Rectal: Deferred. Neuro: Cranial nerves 2 through 12 grossly normal limits. Laboratory Data: WBC count of 13.7 with hemoglobin of 13.3 and now 11.8, platelets of 224. Total bi lirubin of 0.6, AST 12, alkaline phosphatase 60. Urine negative, negative for nitrates. C AT scan of the abdomen and pelvis interpreted by Dr. Gant as cholelithiasis with suggestion of a s mall amount of pericholecystic fluid. Mild intrahepatic biliary tree dilatation, common bile duct me asured about 9 mm in diameter. MRCP interpreted by Dr. Gant as no choledocholithiasis or signific ant biliary tree finding, multiple stones cholelithiasis including a small cystic duct stone. Abdomi nal ultrasound interpreted by Dr. Gant as multiple stones cholelithiasis. Assessment: This is a 25-year-old patient with acute cholecystitis, symptomatic cholelithiasis. Lap aroscopic possible open cholecystectomy fully explained to the patient with benefits, alternatives, a nd risks including, but not limited to infection, bleeding, damage to adjacent structures, anesthesia complication, choledocholithiasis, bile leak, pancreatitis, [place], and even . She also understand s this may not relieve any symptoms. She might need more than one surgical intervention. She unders tood, signed a consent. SAGE/JOSEFINA Voice ID: [id number] Report ID: [id number]
[2020-07-31] MEDS ORDERED: ACETAMINOPHEN 500 MG TAB PO PRN (17:44)
[2020-07-31] MEDS ORDERED: HYDROCODONE/APAP 7.5/325 MG TAB PO ONE (21:36)
[2020-07-31] MEDS ORDERED: LITHIUM CARBONATE 300 MG TAB ONE (22:25)
[2020-08-01] MEDS: ONDANSETRON 4 MG/2 ML VIAL IV PRN (00:20)
[2020-08-01] MEDS: PIPER/TAZO/NS 3.375gm 3.375 GM/100 ML BAG IVPB SCH ×3 (00:21→15:00)
[2020-08-01 06:04] LABS: Absolute Lymphocytes (CBC) 2.3 K/uL (0.7-4.9); Basophils % 0.4 % (0-1.3); Hematocrit 39.5 % (36.0-45.0); Lymphocytes % 24.8 % (15.3-44.8); MPV 8.5 fL (7.6-11.3); RBC Red Blood Cell Count 4.53 M/uL (3.86-4.86)
[2020-08-01] MEDS: NA CHLORIDE 0.9% 1,000 ML IV SCH (07:21)
[2020-08-01 07:22] LABS: ALT/SGPT 14 U/L (12-78); AST/SGOT 10 U/L (15-37); Alkaline Phosphatase 64 U/L (45-117); BUN Blood Urea Nitrogen 7 mg/dL (7-18); Bicarbonate 26 mmol/L (21-32); Glucose Level 77 mg/dL (74-106); Potassium 3.5 mmol/L (3.5-5.1); Sodium Level 144 mmol/L (136-145)
[2020-08-01 07:23] LABS: Albumin 3.6 g/dL (3.4-5.0); Bilirubin Total 0.8 mg/dL (0.2-1.0); Protein, Total 6.3 g/dL (6.4-8.2)
[2020-08-01] MEDS: MORPHINE 2 MG/ML SYR IV PRN (07:37)
[2020-08-01] MEDS ORDERED: Ringers Lactate 1,000 ML IV ONE (08:25)
[2020-08-01] MEDS ORDERED: propofoL 200 MG/20 ML VIAL IV ONE (08:53)
[2020-08-01] MEDS ORDERED: FENTANYL CITR 100 MCG/2 ML ONE (08:53)
[2020-08-01] MEDS ORDERED: LIDOCAINE 1% MPF 5 ML VIAL ONE (08:54)
[2020-08-01] MEDS ORDERED: MIDAZOLAM HCL 2 MG/2 ML INJ ONE (08:54)
[2020-08-01] MEDS ORDERED: ROCURONIUM 50 MG/5 ML VIAL IV ONE (08:54)
[2020-08-01] MEDS ORDERED: dexAMETHasone 10 MG/ML VIAL ONE (09:22)
[2020-08-01] MEDS ORDERED: KETOROLAC 30 MG/ML INJ ONE (09:22)
[2020-08-01] MEDS ORDERED: ONDANSETRON 4 MG/2 ML VIAL ONE (09:51)
[2020-08-01] MEDS ORDERED: NEOSTIGMINE 1 MG/ML -5 ML ONE (09:52)
[2020-08-01] MEDS ORDERED: GLYCOPYRROLATE 0.2 MG/ML SYR ONE (09:52)
--- NOTE | 2020-08-01 10:12 | P.BOP ---
Preoperative diagnosis: acute cholecystitis, symptomatic cholelithiasis, intractable RUQ pain Postoperative diagnosis: same Primary procedure: Laparoscopic cholecystectomy Handle Turner: Anastasia Peng) Estimated blood loss: <10cc Specimen: gb Findings: as above Anesthesia: General Complications: None Transferred to: Recovery Room Condition: Good
--- NOTE | 2020-08-01 10:29 | P.PN ---
Subjective Date of Service: 08/01/20 Chief Complaint: RUQ abdominal pain, choledocholithiasis, cholelithiasis, cholecystitis Subjective: New changes (Going to OR today.) Physical Examination - Vital Signs Temperature: 97.3 F Blood Pressure: 116/69 Pulse: 64 Respirations: 18 Pulse Ox (%): 98 Assessment And Plan - Current Problems (Diagnosis) (1) RUQ abdominal pain Current Visit: Yes Status: Acute (2) Nausea Current Visit: Yes Status: Acute (3) Abnormal magnetic resonance cholangiopancreatography (MRCP) Current Visit: Yes Status: Acute (4) Abnormal ultrasound of abdomen Current Visit: Yes Status: Acute (5) Abnormal CT of the abdomen Current Visit: Yes Status: Acute (6) Choledocholithiasis with acute cholecystitis Current Visit: Yes Status: Acute (7) Cholelithiasis Current Visit: Yes Status: Acute (8) Cholecystitis Current Visit: Yes Status: Acute - Plan REC: 1) lap spencer as per surgery 2) diet as per surgery Physician Review Additional Text: Physical Exam General: Alert, NAD HEENT: Normal conjunctiva, sclerae anicteric Respiratory: Clear to auscultation bilaterally, Normal air movement Cardiovascular: No edema, Regular rate/rhythm, Normal S1 S2, No murmurs Gastrointestinal: Soft, moderate tenderness to palpation in right upper quadrant Musculoskeletal: No swelling, No tenderness Integumentary: No rashes, No erythema Neurological: Normal speech, Normal strength at 5/5 x4 extr Assessment and Plan Acute cholecystitis Calculus of cystic duct Bipolar disorder Seizure disorder -GI consulted. Patient seen by Dr. Galvin. s/p ERCP on 07/30 with sphincterotomy and stent placement -Patient will need lap cholecystectomy. General surgery-Dr. Huerta consulted. -continue Empiric IV Zosyn, NPO except meds, IVF -Resume home med-lithium and Buspirone. Patient states she stopped taking her antiseizure medications several years ago. Her last seizure episode was more than 1 year ago. -Monitor CBC, LFT and electrolytes. -continue morphine for pain control - pt appears comfortable and sleeping throug hout shift despite stating medication is not helping Code: full Dispo: anticipate dc home in 1-2 days, pending surgery eval / cholecystectomy
[2020-08-01 10:32] VITALS: O2SAT 92
[2020-08-01] MEDS: BUSPIRONE HCL 5 MG TABLET PO SCH (10:40)
[2020-08-01] MEDS: LITHIUM CARBONATE 300 MG TAB PO SCH (10:41)
[2020-08-01] MEDS: HYDROCODONE/APAP 5/325 MG TAB PO PRN ×2 (10:48→16:11)
[2020-08-01] MEDS ORDERED: POTASSIUM 25 MEQ EFFERV TAB PO ONE (11:00)
--- NOTE | 2020-08-01 16:00 | OP ---
Date of Procedure: 08/01/2020 Surgeon: Daryl Huerta MD Preoperative Diagnoses: Acute cholecystitis, symptomatic cholelithiasis. Postoperative Diagnoses: Acute cholecystitis, symptomatic cholelithiasis. Procedure: Laparoscopic cholecystectomy. Anesthesia: General plus local. Complications: None. Specimen: Gallbladder. Indication: This is the case of a 25-year-old patient, who comes to us and admitted with epigastric right upper quadrant pain, diagnosed with acute cholecystitis. The patient even has a dilated common bile duct. An MRCP was done. The patient was cleared by the tankroom tender and then cleared fo r laparoscopic possible open cholecystectomy that was explained to her with benefits, alternatives, a nd risks including, but not limited to infection, bleeding, damage to adjacent structures, anesthesia complication, choledocholithiasis, bile leak, pancreatitis, CO, and even . She also understand s this may not relieve any symptoms. She might need more than one surgical intervention. She unders tood, signed a consent. Today, she still has intractable right upper quadrant abdominal pain. She u nderstands this may not completely be relieved immediately. She understood. Procedure In Detail: The patient was brought to the operating room, placed in supine position. Anes thesia was done without complication. Abdominal area was prepped and draped in usual sterile fashion . Marcaine 0.5% was injected for local anesthetic followed by sharp incision of the skin in the infr aumbilical region. The incision was carried down to fascia, which was opened under direct vision. T he peritoneum was encountered, opened under direct vision. Vicryl #1 placed inside the fascia. Sal on trocar was carefully introduced. Pneumoperitoneum was obtained. I placed 3 more trocars, 5 mm ea ch one of them, 1 in epigastric area and 2 in the right upper quadrant under direct visualization. T his allowed me to visualize the area of the gallbladder. We have some adhesions to the gallbladder c onsistent with the findings as described before with acute cholecystitis. So, using Endo Josselyn conn ected to Bovie cauterizer carefully, we removed the lysis of adhesions releasing the gallbladder. No bleeding. At that moment, I put a grasper in the fundus of the gallbladder and another grasper in t he infundibulum retracting the gallbladder in the inferolateral fashion, exposing the triangle of Humberto ot and obtaining critical view. The cystic duct and cystic artery were clearly isolated, freed circu mferentially and a connection between those and the gallbladder were clearly identified. I proceeded to ligate those by using at least 3 clips proximal, 1 clip distal, and ligation in middle. Same was done with the cystic artery. No bile leak, no bleeding. The gallbladder was removed from liver usi ng Bovie cauterizer and removed from abdominal cavity using EndoCatch through the umbilical incision. The area was inspected once again. Clips were intact. No bile leak. No bleeding. The area of ad hesions with no bleeding. At that moment, I proceeded to remove the trocars under direct vision. De flated pneumoperitoneum. Closed the fascia with #1 Vicryl. Irrigated subcutaneous tissue, closed wi th 3-0 chromic and skin in subcuticular fashion. Sponge count and instrument counts correct. The pa tient tolerated the procedure well. The patient was sent to recovery in stable condition. SAGE/JOSEFINA Voice ID: [id number] Report ID: [id number]
[2020-08-01 16:09] VITALS: BP 110/62; TEMP 98.3
--- NOTE | 2020-08-01 16:23 | P.DS ---
Admission Date: 07/30/20 Discharge Date: 08/01/20 Disposition: ROUTINE DISCHARGE Discharge Condition: GOOD Reason for Admission: RUQ abdominal pain, choledocholithiasis, cholelithiasis, cholecystitis Consultations: GI - Dr. Whatley General surgery - Dr. Huerta Procedures: CT Abd/pelvis (07/30): : 1. Cholelithiasis with the suggestion of a small amount of pericholecystic fluid. Consider right upper quadrant ultrasound for further evaluation if there is any concern for cholecystitis. 2. There is mild intrahepatic biliary dilatation. 3. Common bile duct measures 9 mm in diameter. 4. The appendix is normal. Abd U/S (07/30): Gallbladder size is normal. Multiple small gallstones are present including a small gallstone in the cystic duct. Sludge is present minimal in quantity. Small amount of pericholecystic fluid is present. Gallbladder wall is not abnormally thickened. Common bile duct is normal with no common duct stone identified. Partially imaged liver shows no focal lesion. IMPRESSION: Multiple gallstones small in size including a small stone in the cystic duct. Pericholecystic fluid is present without wall thickening. No biliary tree abnormality seen. These findings are equivocal for acute cholecystitis and need correlation with any additional imaging, lab and physical exam findings. MRCP (07/30): No choledocholithiasis or significant biliary tree finding. Multi stone cholelithiasis including small cystic duct stone. ERCP (07/30): by Dr. Whatley Impression: Pancreatic duct was filled to the body of pancreas appeared to be normal. Care was taken not to overfill the ductal system. Cannulation of the common bile duct was accomplished. Common bile duct and intrahepatic ducts were normal without filling defects, strictures, or stones. Cystic duct not well visualized. Underwent sphincterotomy and a 7-5 plastic stent placement. Lap cholecystectomy (08/01) by Dr. Huerta Problem list Acute cholecystitis Calculus of cystic duct Bipolar disorder Seizure disorder Brief History of Present Illness: 25-year-old woman with a history of bipolar disorder, seizure disorder presented to the emergency department with a complaint of sudden onset of abdominal pain, back pain and nausea. CT abdomen and pelvis done in the emergency department showed cholelithiasis and mild intrahepatic biliary ductal dilatation. MRCP done showed multi stone cholelithiasis and cystic duct stone, no choledocholithiasis. GI was consulted to evaluate. Patient was admitted for further management. Hospital Course: Patient underwent MRCP and ERCP with findings as noted above. Underwent sphincterotomy and stent placement by Dr. Whatley. Patient continued with significant pain. Underwent laparoscopic cholecystectomy with Dr. Huerta. Postoperatively patient was feeling much better, pain was more controlled, she was tolerating a soft diet and requesting to be discharged home. She was discharged home with antibiotics and pain medication. Follow up with PCP in 3-5 days Follow up with general surgery, Dr. Orozco in 1 week Follow up with GI, Dr. whatley in 1 month Vital Signs/Physical Exam: Temp Pulse Resp BP Pulse Ox 98.3 F 69 18 110/62 98 08/01/20 16:00 08/01/20 16:00 08/01/20 16:11 08/01/20 16:00 08/01/20 16:11 General: Alert, In no apparent distress, Oriented x3 HEENT: Sclerae nonicteric Respiratory: Clear to auscultation bilaterally, Normal air movement Cardiovascular: No edema, Regular rate/rhythm Gastrointestinal: Soft and benign, Non-distended, No rebound, Tenderness (mild, at incision sites) Musculoskeletal: No erythema, No tenderness Integumentary: No rashes, No breakdown Neurological: Normal speech, Normal affect Laboratory Data at Discharge: WBC 9.10 K/uL (4.3-10.9) 08/01/20 05:34 Hgb 13.0 g/dL (12.0-15.0) 08/01/20 05:34 Hct 39.5 % (36.0-45.0) 08/01/20 05:34 Plt Count 230 K/uL (152-406) 08/01/20 05:34 PT 10.4 SECONDS (9.5-12.5) 07/30/20 09:45 INR 0.91 07/30/20 09:45 APTT 30.9 SECONDS (24.3-36.9) 07/30/20 09:45 Sodium 144 mmol/L (136-145) 08/01/20 06:50 Potassium 3.5 mmol/L (3.5-5.1) 08/01/20 06:50 BUN 7 mg/dL (7-18) 08/01/20 06:50 Creatinine 0.61 mg/dL (0.55-1.3) 08/01/20 06:50 Glucose 77 mg/dL (74-106) 08/01/20 06:50 Phosphorus 3.2 mg/dL (2.5-4.9) 07/31/20 03:12 Magnesium 2.3 mg/dL (1.8-2.4) 07/31/20 03:12 Total Bilirubin 0.8 mg/dL (0.2-1.0) 08/01/20 06:50 AST 10 U/L (15-37) L 08/01/20 06:50 ALT 14 U/L (12-78) 08/01/20 06:50 Alkaline Phosphatase 64 U/L (45-117) 08/01/20 06:50 Triglycerides 65 mg/dL (<150) 07/31/20 03:12 Cholesterol 96 mg/dL (<200) 07/31/20 03:12 HDL Cholesterol 45 mg/dL (40-60) 07/31/20 03:12 Cholesterol/HDL Ratio 2.13 07/31/20 03:12 Lipase 61 U/L (73-393) L 07/30/20 04:58 Home Medications: Buspirone HCl [Buspar*] 1 tab PO BID 07/30/20 [place] Carbonate [[place] Carbonate ER] 2 tab PO BID 07/30/20 Amox/Clavulanate [Augmentin 875-125 Tab] 1 tab PO BID 7 Days #14 tab 08/01/20 Hydrocodone 5/APAP 325 [[place] 5/325] 1 tab PO Q8H 3 Days #9 tab 08/01/20 New Medications: Amox/Clavulanate [Augmentin 875-125 Tab] 1 tab PO BID 7 Days #14 tab Hydrocodone 5/APAP 325 [[place] 5/325] 1 tab PO Q8H 3 Days #9 tab Physician Discharge Instructions: found to have acute cholecystitis, underwent ERCP by Dr. Whatley with stent placement in your common bile duct. You then underwent laparoscopic cholecystectomy (removal of gallbladder) by Dr. Huerta without complications. You were treated with antibiotics and will be discharged home with antibiotics. Please follow up with the GI office-Dr. Whatley in 1 month. Follow up with Dr. Huerta in approximately 1 week. Follow up with PCP in 3-5 days. Diet: low fat Activity: Ad lisbet Followup: Rosas,Eddie T, MD [Primary Care Provider] - (Call to schedule appointment.) Daryl Huerta MD [ACTIVE - CAN ADMIT] - (Call to schedule appointment.) Cheo Whatley MD [ASSOCIATE-ACTIVE - CAN ADMIT] - (Call to schedule appoinyment.) Time spent managing pt's care (in minutes): 45
== END 2020-08-01 18:01 | disposition home or self-care (01) | DRG 419 ==
LOC: ER 04:42 → ERHOLD 10:31 → 4TH 13:50
PROVIDERS: ADMIT Internal Medicine; ATTEND Hospitalist
PROC: 0F798DZ Dilation of Common Bile Duct with Intraluminal Device, Via Natural or Artificial Opening Endoscopic (ICD-10-PCS; 2020-07-30)
PROC: 0FT44ZZ Resection of Gallbladder, Percutaneous Endoscopic Approach (ICD-10-PCS; principal; 2020-08-01 11:45)
DX: K80.00 Calculus of gallbladder with acute cholecystitis without obstruction (principal); F31.9 Bipolar disorder, unspecified; R93.5 Abnormal findings on diagnostic imaging of other abdominal regions, including retroperitoneum; R93.89 Abnormal findings on diagnostic imaging of other specified body structures; Z88.1 Allergy status to other antibiotic agents; Z79.899 Other long term (current) drug therapy; Z20.822 Contact with and (suspected) exposure to COVID-19
CPT/HCPCS: 36415; 74177; 74181; 76705; 80048; 80053; 80061; 80076; 80178; 81003; 81015; 81025; 83690; 83735; 84100; 84443; 85025; 85610; 85730; 88304; 94010; 94760; 96361; 96374; 96375; 99284; C1769; C2625; J1100; J1200; J1580; J1610; J2250; J2270; J2405; J2543; J2550; J2704; J2710; J3010; J3480; J7030; J7120; Q9967; U0003

== ENCOUNTER 2020-09-01 11:45 | Emergency (ER) | payer OTHER ==
--- OUTSIDE RECORDS SUMMARY | 2020-09-01 11:48 | XMS REPORT | Continuity of Care Document ---
:1995 Author Organization [facility] t Address [address] [place] [address] Care Team Providers Name Role Phone Asked, Pcp Primary Care Physician Unavailable Yulia Cardenas Attending Clinician AkinsiHerb Covington Attending Clinician Problems This patient has no [...] Start Date Stop Date Source Never smoker [place] [facility] t Medications This patient has no known medications. Procedures This patient has no known procedures. Plan of Care Planned Activity Planned Date Details Comments Source Future Scheduled 2020-10-07 INFLUENZA VACCINE [place] [facility] 00:00:00 [code = INFLUENZA VACCINE] Future Scheduled 2018 Screening for Jayden Jimenez [facility] Test 00:00:00 malignant neoplasm of cervix (procedure) [code = 091137876] Future Scheduled 2015 Hepatitis C [facility] Test 00:00:00 screening (procedure) [code = 162651496] Future Scheduled 2013 CHLAMYDIA SCREENING [place] [facility] 00:00:00 [code = CHLAMYDIA SCREENING] Future Scheduled 2009 COVID-19 VACCINE (1) Ricci pascual [facility] Test 00:00:00 [code = COVID-19 VACCINE (1)] Encounters Start End Encounter Admission Attending Care Care Encounter Source Date/Time Date/Time Type Type Clinicians Facility Department ID 2020-08-31 2020-08-31 Emergency [place] [facility] [id number] 11:19:00 13:58:00 Yulia Foley [id number] [place] [id number] [place] [id number] 2020-08-29 2020-08-29 [address] [place] [facility] [id number] 20:48:00 23:11:00 Yulia Foley [id number] [place] [id number] [place] [id number] 2020-06-07 2020-06-07 [facility] [id number] 10:50:31 11:18:03 Visit Enedina Estevez [employer] [employer] [id number] [facility] [id number] MATERNAL [id number] & CHILD [address] [place] [address] 2019-01-02 2019-01-02 Emergency [facility] [id number] [place] 00:00:00 00:00:[address] Results This patient has no known results.
[2020-09-01 13:54] LABS: Urine Blood 3+ (Negative); Urine Glucose Negative (Negative); Urine Protein Negative (Negative)
[2020-09-01 13:58] LABS: Absolute Lymphocytes (CBC) 1.8 K/uL (0.7-4.9); Basophils % 0.6 % (0-1.3); Hematocrit 40.4 % (36.0-45.0); Lymphocytes % 30.3 % (15.3-44.8); MPV 8.8 fL (7.6-11.3); RBC Red Blood Cell Count 4.63 M/uL (3.86-4.86)
[2020-09-01] MEDS ORDERED: NA CHLORIDE 0.9% 1,000 ML ONE (14:14)
[2020-09-01] MEDS ORDERED: KETOROLAC 30 MG/ML INJ ONE (14:14)
[2020-09-01 14:23] LABS: ALT/SGPT 19 U/L (12-78); AST/SGOT 13 U/L (15-37); Albumin 3.7 g/dL (3.4-5.0); Alkaline Phosphatase 76 U/L (45-117); BUN Blood Urea Nitrogen 6 mg/dL (7-18); Bicarbonate 30 mmol/L (21-32); Bilirubin Direct < 0.1 mg/dL (0-0.2); Bilirubin Total 0.2 mg/dL (0.2-1.0); Glucose Level 87 mg/dL (74-106); Lipase 55 U/L (73-393); Potassium 3.6 mmol/L (3.5-5.1); Protein, Total 7.3 g/dL (6.4-8.2); Sodium Level 142 mmol/L (136-145)
[2020-09-01 14:32] LABS: Urine Bacteria <20 /HPF (<20); Urine RBC <5 /HPF (NONE SEEN)
[2020-09-01 14:40] LABS: Barbiturates NEGATIVE (NEGATIVE); Benzodiazepines NEGATIVE (NEGATIVE); Cocaine NEGATIVE (NEGATIVE); METHAMPHETAM NEGATIVE (NEGATIVE); Methadone NEGATIVE (NEGATIVE); Opiates NEGATIVE (NEGATIVE); Phencyclidine NEGATIVE (NEGATIVE); THC Cannibis POSITIVE (NEGATIVE)
--- NOTE | 2020-09-01 15:09 | RAD REPORT ---
EXAM DESCRIPTION: CT - Chest Abdomen Pelvis W Cont - 09/01/2020 2:48 pm CLINICAL HISTORY: Left flank pain, COVID positive, fever COMPARISON: Abdomen Pelvis W Contrast dated 07/30/2020 TECHNIQUE: Following dynamic enhancement using 100 milliliters nonionic IV contrast, axial imaging o f the chest, abdomen and pelvis was performed. Biphasic technique was utilized through the abdomen. No oral contrast administered. All CT scans are performed using dose optimization technique as appropriate and may include automated exposure control or mA/KV adjustment according to patient size. FINDINGS: In the posterior gutter on the left there is a 1 centimeter area of ground-glass opacifica tion. This could be atelectasis, edema or a minute infiltrative process. This is not regarded as sign ificant for fever or global symptom pattern. Lung owen are otherwise clear. No endobronchial lesion . No pericardial effusion. No pleural effusion, pleural thickening or pneumothorax. No significant ao rtic or pulmonary arterial tree finding. Mediastinal and hilar regions show no mass or abnormal lymph adenopathy. No chest wall mass or axillary lymphadenopathy. No cardiomegaly. The liver, spleen and pancreas show no suspicious findings. Cholecystectomy clips are present. Biliar y stent is in place with trace amounts of pneumobilia. Symmetric renal function is seen with no mass or hydronephrosis. No adrenal abnormalities. Urinary bl adder is fully contracted. Minimal amount of contrast is present within the bladder. No asymmetric wa ll thickening or abnormal edema of the bladder wall seen. Uterus and ovaries show no suspicious findi ngs. No dilated bowel loops or focal bowel wall thickening. No acute GI findings seen. Appendix is well-vi sualized and normal. No acute or destructive bony process. No significant vascular findings. IMPRESSION: CT chest imaging shows no significant finding. Patient has undergone cholecystectomy since July 30 with biliary stent placement. No biliary tree di latation or pancreatitis findings. Minimal pneumobilia is present which is normal in a biliary stent patient. No abscess or other abnormality to explain fever of unknown origin.
--- NOTE | 2020-09-01 15:44 | EDPHYS ---
Physician Documentation [facility] Name: Mile Wang Age: 25 yrs Sex: Female : 1995 Arrival Date: 09/01/2020 Time: 11:46 Bed 16 Private MD: Jud Stephensonh ED Physician Zen Villanueva HPI: 09/01 14:00 This 25 yrs old Female presents to ER via Ambulatory with complaints of Flank pm1 Pain - left, Back Pain, Covid+. 14:00 The patient complains of pain in the left low back and left mid back. The pain does not pm1 radiate. Onset: The symptoms/episode began/occurred today. Modifying factors: The symptoms are alleviated by nothing. Has been taking ibuprofen and tylenol without improvement, the symptoms are aggravated by nothing. Associated signs and symptoms: Pertinent positives: cough, short of breath, n/v/d, fever, "urinating feels different", Pertinent negatives: urinary frequency, headache, chest pain. Severity of pain: in the emergency department the pain is actually worse. The patient has not experienced similar symptoms in the past. positive swab for covid 3 days ago. Patient reports she "had all the covid symptoms" on that day. 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 - Social history:: Smoking status: Patient denies any tobacco usage or history of. ROS: 14:00 Eyes: Negative for injury, pain, redness, and discharge, ENT: Negative for injury, pm1 pain, and discharge, Neck: Negative for injury, pain, and swelling, Cardiovascular: Negative for chest pain, palpitations, and edema. 14:00 MS/Extremity: Negative for injury and deformity, Skin: Negative for injury, rash, and discoloration, Neuro: Negative for headache, weakness, numbness, tingling, and seizure. 14:00 Constitutional: Positive for fever, Negative for poor PO intake. 14:00 Respiratory: Positive for cough, shortness of breath, Negative for wheezing. 14:00 Abdomen/GI: Positive for nausea, vomiting, and diarrhea, Negative for abdominal pain. 14:00 Back: Positive for flank pain, on the left. 14:00 : Negative for urinary frequency, small amounts, burning with urination, difficulty urinating, vaginal discharge. Exam: 14:00 Constitutional: This is a well developed, well nourished patient who is awake, alert, pm1 and in no acute distress. Head/Face: Normocephalic, atraumatic. 14:00 ENT: Nares patent. No nasal discharge, no septal abnormalities noted. Tympanic membranes are normal and external auditory canals are clear. Oropharynx with no redness, swelling, or masses, exudates, or evidence of obstruction, uvula midline. Mucous membranes moist. Neck: Trachea midline, no thyromegaly or masses palpated, and no cervical lymphadenopathy. Supple, full range of motion without nuchal rigidity, or vertebral point tenderness. No Meningismus. 14:00 Cardiovascular: Regular rate and rhythm with a normal S1 and S2. No gallops, murmurs, or rubs. Normal PMI, no JVD. No pulse deficits. Respiratory: Lungs have equal breath sounds bilaterally, clear to auscultation and percussion. No rales, rhonchi or wheezes noted. No increased work of breathing, no retractions or nasal flaring. Abdomen/GI: Soft, non-tender, with normal bowel sounds. No distension or tympany. No guarding or rebound. No evidence of tenderness throughout. 14:00 Skin: Warm, dry with normal turgor. Normal color with no rashes, no lesions, and no evidence of cellulitis. MS/ Extremity: Pulses equal, no cyanosis. Neurovascular intact. Full, normal range of motion. 14:00 Eyes: Exam is negative for acute changes, Conjunctiva: no acute changes, no injection, Corneas: are normal. 14:00 Back: pain, of the left low back and left mid back. 14:00 Neuro: Exam negative for acute changes, Orientation: is normal, Mentation: is normal, Motor: is normal, moves all fours. 14:00 Psych: Behavior/mood is anxious, Affect is animated, Oriented to person, place, time. Vital Signs: 11:52 BP 139 / 86; Pulse 100; Resp 17; Temp 99.5; Pulse Ox 100% ; Weight 77.11 kg; Height 5 ll1 ft. 3 in. (160.02 cm); Pain 7/10; 13:59 BP 120 / 80; Pulse 96; Resp 18; Pulse Ox 100% on R/A; ca1 14:58 BP 102 / 72; Pulse 89; Resp 18 S; Pulse Ox 100% on R/A; ca1 16:08 BP 111 / 69; Pulse 81; Resp 16 S; Pulse Ox 100% on R/A; ca1 11:52 Body Mass Index 30.11 (77.11 kg, 160.02 cm) ll1 MDM: 13:13 Patient medically screened. joe 14:31 Data reviewed: vital signs. Data interpreted: Pulse oximetry: on room air is 100 %. pm1 Interpretation: normal. 15:43 Counseling: I had a detailed discussion with the patient and/or guardian regarding: the pm1 historical points, exam findings, and any diagnostic results supporting the discharge/admit diagnosis, lab results, radiology results, the need for outpatient follow up, to return to the emergency department if symptoms worsen or persist or if there are any questions or concerns that arise at home. 09/01 13:27 Order name: Basic Metabolic Panel; Complete Time: 14:27 pm09/01 13:27 Order name: CBC with Diff; Complete Time: 14:21 pm09/01 13:27 Order name: Hepatic Function; Complete Time: 14:27 pm1 09/01 13:27 Order name: Lipase; Complete Time: 14:27 pm1 09/01 13:27 Order name: UDS; Complete Time: 14:44 pm09/01 13:27 Order name: Urine Microscopic Only; Complete Time: 14:39 pm09/01 13:27 Order name: IV Saline Lock; Complete Time: 13:47 pm09/01 13:27 Order name: Labs collected and sent; Complete Time: 13:47 pm09/01 13:27 Order name: CT Chest, Abdomen, Pelvis - W/Contrast; Complete Time: 15:41 pm1 09/01 13:53 Order name: Urine Dipstick-Ancillary; Complete Time: 14:00 EDIL 09/01 14:33 Order name: Urine Culture EDIL 09/01 13:27 Order name: Urine Dipstick-Ancillary (obtain specimen); Complete Time: 13:47 pm1 09/01 13:27 Order name: Urine Test (obtain specimen); Complete Time: 13:47 pm1 Administered Medications: 13:50 Drug: NS 0.9% 1000 ml Route: IV; Rate: 1000 ml; Site: left antecubital; ca1 15:48 Follow up: Response: No adverse reaction; IV Status: Completed infusion ca1 13:57 Drug: TORadol - (ketorolac) 15 mg Route: IVP; Site: left antecubital; ca1 15:48 Follow up: Response: No adverse reaction; Pain is decreased ca1 15:54 Drug: Rocephin (cefTRIAXone) 1 grams Route: IV; Rate: calculated rate; Site: left ca1 antecubital; 16:09 Follow up: Response: No adverse reaction; IV Status: Completed infusion ca1 Disposition: 21:18 Co-signature as Attending Physician, Zen Villanueva MD I agree with the assessment and joe plan of care. Disposition: 09/01/20 15:43 Discharged to Home. Impression: Coronavirus infection, unspecified, UTI/ Urinary tract infection, site not specified. - Condition is Stable. - Discharge Instructions: Urinary Tract Infection, Adult, COVID-19. - Prescriptions for Macrobid 100 mg Oral Capsule - take 1 capsule by ORAL route every 12 hours for 10 days; 20 capsule. - Medication Reconciliation Form, Thank You Letter, Antibiotic Education, Prescription Opioid Use form. - Follow up: Emergency Department; When: As needed; Reason: Worsening of condition. Follow up: Private Physician; When: 2 - 3 days; Reason: Recheck today's complaints, Continuance of care, Re-evaluation by your physician. - Problem is new. - Symptoms have improved. Signatures: Dispatcher [employer] [facility] Zen Villanueva MD MD cha Marinas, Patrick, LASHON RADIO TOWER TECHNICIAN pm1 Sophia Gómez RN RN ca1 Stella Aldridge RN RN ll1 Corrections: (The following items were deleted from the chart) 16:09 15:43 09/01/2020 15:43 Discharged to Home. Impression: Coronavirus infection, ca1 unspecified; Urinary tract infection, site not specified. Condition is Stable. Forms are Medication Reconciliation Form, Thank You Letter, Antibiotic Education, Prescription Opioid Use. Follow up: Emergency Department; When: As needed; Reason: Worsening of condition. Follow up: Private Physician; When: 2 - 3 days; Reason: Recheck today's complaints, Continuance of care, Re-evaluation by your physician. Problem is new. Symptoms have improved. pm1
--- NOTE | 2020-09-01 15:44 | ER ---
Nurse's Notes [facility] [place] Name: Mile Wang Age: 25 yrs Sex: Female : 1995 Arrival Date: 09/01/2020 Time: 11:46 Bed 16 Private MD: Jericho Stephenson Diagnosis: Coronavirus infection, unspecified;UTI/ Urinary tract infection, site not specified Presentation: 09/01 11:52 Chief complaint: Patient states: Covid positive since . Started having L back/flank ll1 pain today, slowly increasing in intensity. Still has fever daily. Coronavirus screen: Client denies travel out of the [place] in the last 14 days. Coronavirus screen: chills, cough unrelated to allergies, diarrhea, difficulty breathing, fatigue, fever, headache, muscle pain, nausea, shaking with chills, shortness of breath, loss of taste or smell, Client presents with at least one sign or symptom that may indicate coronavirus-19. Standard/surgical mask placed on the client. Ebola Screen: Patient denies travel to an Ebola-affected area in the 21 days before illness onset. Initial Sepsis Screen: Does the patient meet any 2 criteria? HR > 90 bpm. No. Patient's initial sepsis screen is negative. Does the patient have a suspected source of infection? Yes: Productive cough/pneumonia. Risk Assessment: Do you want to hurt yourself or someone else? Patient reports no desire to harm self or others. Onset of symptoms was August 27, 2020. 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 - Social history:: Smoking status: Patient denies any tobacco usage or history of. Screenin:15 Abuse screen: Denies threats or abuse. Denies injuries from another. Nutritional ca1 screening: No deficits noted. Tuberculosis screening: No symptoms or risk factors identified. Fall Risk IV access (20 points). Assessment: 13:15 General: Appears in no apparent distress. uncomfortable, Behavior is cooperative, ca1 crying. Pain: Complains of pain in posterior aspect of left lateral abdomen Pain does not radiate. Pain currently is 9 out of 10 on a pain scale. Quality of pain is described as dull, Pain began this morning. Neuro: Level of Consciousness is awake, alert, obeys commands, Oriented to person, place, time, situation, Appropriate for age. GI: Abdomen is flat, non-distended, Bowel sounds present X 4 quads. Abd is soft and non tender X 4 quads. : Reports burning with urination, since today urgency, urinary frequency. Derm: Skin is intact, is healthy with good turgor, Skin is pink, warm \T\ dry. Musculoskeletal: Circulation, motion, and sensation intact. Capillary refill < 3 seconds. 13:59 Reassessment: Patient appears in no apparent distress at this time. Patient and/or ca1 family updated on plan of care and expected duration. Pain level reassessed. Patient is alert, oriented x 3, equal unlabored respirations, skin warm/dry/pink. 14:58 Reassessment: Patient appears in no apparent distress at this time. Patient and/or ca1 family updated on plan of care and expected duration. Pain level reassessed. Patient is alert, oriented x 3, equal unlabored respirations, skin warm/dry/pink. Patient states feeling better. 16:08 Reassessment: Patient appears in no apparent distress at this time. Patient and/or ca1 family updated on plan of care and expected duration. Pain level reassessed. Patient is alert, oriented x 3, equal unlabored respirations, skin warm/dry/pink. Patient states feeling better. Vital Signs: 11:52 BP 139 / 86; Pulse 100; Resp 17; Temp 99.5; Pulse Ox 100% ; Weight 77.11 kg; Height 5 ll1 ft. 3 in. (160.02 cm); Pain 7/10; 13:59 BP 120 / 80; Pulse 96; Resp 18; Pulse Ox 100% on R/A; ca1 14:58 BP 102 / 72; Pulse 89; Resp 18 S; Pulse Ox 100% on R/A; ca1 16:08 BP 111 / 69; Pulse 81; Resp 16 S; Pulse Ox 100% on R/A; ca1 11:52 Body Mass Index 30.11 (77.11 kg, 160.02 cm) ll1 ED Course: 11:46 Patient arrived in ED. am2 11:46 Jericho Stephenson DO is Private Physician. am2 11:55 Triage completed. ll1 11:55 Arm band placed on. ll1 13:09 Patient placed in an exam room, on a stretcher. ll1 13:10 Ted Gu NP is PHCP. pm1 13:10 Zen Villanueva MD is Attending Physician. pm1 13:15 Patient has correct armband on for positive identification. Placed in gown. Bed in low ca1 position. Call light in reach. Side rails up X2. Pulse ox on. NIBP on. Warm blanket given. 13:22 Sophia Gómez, JUAN M is Primary Nurse. ca1 13:45 Inserted saline lock: 22 gauge in left antecubital area, using aseptic technique. Blood ca1 collected. 13:45 No provider procedures requiring assistance completed. Initial lab(s) drawn, by wv, ca1 sent to lab. 14:48 CT Chest, Abdomen, Pelvis - W/Contrast In Process Unspecified. EDMS 16:09 IV discontinued, intact, bleeding controlled, No redness/swelling at site. Pressure ca1 dressing applied. Administered Medications: 13:50 Drug: NS 0.9% 1000 ml Route: IV; Rate: 1000 ml; Site: left antecubital; ca1 15:48 Follow up: Response: No adverse reaction; IV Status: Completed infusion ca1 13:57 Drug: TORadol - (ketorolac) 15 mg Route: IVP; Site: left antecubital; ca1 15:48 Follow up: Response: No adverse reaction; Pain is decreased ca1 15:54 Drug: Rocephin (cefTRIAXone) 1 grams Route: IV; Rate: calculated rate; Site: left ca1 antecubital; 16:09 Follow up: Response: No adverse reaction; IV Status: Completed infusion ca1 Outcome: 15:43 Discharge ordered by . pm1 16:09 Discharged to home ambulatory. ca1 16:09 Condition: stable 16:09 Discharge instructions given to patient, Instructed on discharge instructions, follow up and referral plans. medication usage, Demonstrated understanding of instructions, follow-up care, medications, Prescriptions given X 1. 16:09 Patient left the ED. ca1 Addendum: 09/04/2020 18:15 Addendum: Culture Results: Positive urine culture. No further action required. Bacteria s s sensitive to prescribed antibiotic. Signatures: Dispatcher [employer] EDBeverley Napoles, RN RN ss Ted Gu, LASHON CHILD CARE COORDINATOR pm1 Candy Dao am2 Sophia Gómez RN RN ca1 Stella Aldridge RN RN ll1
[2020-09-01] MEDS ORDERED: CEFTRIAXONE/SWI 1gm 1 GM/10 ML SYR ONE (16:11)
[2020-09-01 16:16] VITALS: TEMP 99.5; O2SAT 100
[2020-09-01 16:20] VITALS: BP 111/69
== END 2020-09-01 16:09 | disposition home or self-care (01) ==
LOC: ER 11:45
DX: U07.1 COVID-19 (principal); N39.0 Urinary tract infection, site not specified; Z88.1 Allergy status to other antibiotic agents; Z88.5 Allergy status to narcotic agent
CPT/HCPCS: 87088; 85025; 87086; 80048; 36415; 80076; 87077; 87186; 83690; 80307; 71260; 74177; Q9967; J0696; J7030; 81003; 81015; 96361; 96374; 96375; 99284

== ENCOUNTER 2020-09-10 10:10 | Emergency (ER) | payer OTHER ==
[2020-09-10] MEDS ORDERED: NA CHLORIDE 0.9% 1,000 ML ONE (11:34)
[2020-09-10] MEDS ORDERED: METHYLPREDNISOLONE 125 MG INJ ONE (11:34)
[2020-09-10] MEDS ORDERED: FAMOTIDINE 20 MG/2 ML VIAL IV ONE (11:34)
[2020-09-10] MEDS ORDERED: DIPHENHYDRAMINE 50 MG/ML VIAL ONE (12:09)
--- NOTE | 2020-09-10 12:11 | ER ---
Nurse's Notes [facility] Name: Mile Wang Age: 25 yrs Sex: Female : 1995 Arrival Date: 09/10/2020 Time: 10:11 Bed 23 Private MD: Diagnosis: Urticaria, unspecified Presentation: 09/10 10:37 Chief complaint: Patient states: COVID + since 08/29/20, tested + again on 09/06/20, went [facility] to [facility] last night and woke with an itchy rash all over, took Benadryl at 0300. Coronavirus screen: Client presents with at least one sign or symptom that may indicate coronavirus-19. Standard/surgical mask placed on the client. Provider contacted for isolation considerations. Client reports previous positive COVID test result. Date of collection: September 06, 2020. Ebola Screen: No symptoms or risks identified at this time. Initial Sepsis Screen: Does the patient meet any 2 criteria? No. Patient's initial sepsis screen is negative. Does the patient have a suspected source of infection? No. Patient's initial sepsis screen is negative. Risk Assessment: Do you want to hurt yourself or someone else? Patient reports no desire to harm self or others. Onset of symptoms was September 10, 2020. 10:37 Method Of Arrival: Ambulatory [facility] 10:37 Acuity: BAIRON 4 jl7 11:30 Acuity: BAIRON 3 iw 11:30 Onset: The symptoms/episode began/occurred today. Anaphylaxis evaluation, no signs or iw symptoms of anaphylaxis were noted. Triage Assessment: 12:00 General: Appears in no apparent distress. Behavior is calm, cooperative. 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 - Social history:: Smoking status: Patient denies any tobacco usage or history of. Screenin:04 Abuse screen: Denies threats or abuse. Denies injuries from another. Nutritional iw screening: No deficits noted. Tuberculosis screening: No symptoms or risk factors identified. Fall Risk IV access (20 points). Assessment: 10:50 General: Appears in no apparent distress. Behavior is cooperative. Pain: Denies pain. iw Neuro: Level of Consciousness is awake, alert, obeys commands, Oriented to person, place, time, situation. Respiratory: Airway is patent Respiratory effort is even, unlabored, Breath sounds are clear bilaterally. Derm: Rash noted that is red, urticaria, on chest, abdomen, right arm, left arm and neck. Musculoskeletal: Range of motion: intact in all extremities. 12:03 Reassessment: Patient appears in no apparent distress at this time. Patient states iw feeling better. Patient states symptoms have improved. 12:33 Reassessment: Patient appears in no apparent distress at this time. Patient and/or iw family updated on plan of care and expected duration. Pain level reassessed. Patient is alert, oriented x 3, equal unlabored respirations, skin warm/dry/pink. Vital Signs: 10:37 BP 124 / 80; Pulse 108; Resp 17; Temp 98.7(O); Pulse Ox 100% on R/A; Weight 77.11 kg; jl7 Height 5 ft. 3 in. (160.02 cm); Pain 7/10; 10:37 Body Mass Index 30.11 (77.11 kg, 160.02 cm) jl7 ED Course: 10:11 Patient arrived in ED. as 10:40 Triage completed. jl7 10:40 Arm band placed on right wrist. jl7 10:50 Patient has correct armband on for positive identification. iw 11:01 [facility] Espinosa F[facility]-C [facility] kb 11:01 Zen Villanueva MD is Attending Physician. kb 11:11 Nadja Nick, JUAN M is Primary Nurse. iw 11:30 Inserted saline lock: 22 gauge in right antecubital area, using aseptic technique. iw 12:33 No provider procedures requiring assistance completed. IV discontinued, intact, iw bleeding controlled, No redness/swelling at site. Pressure dressing applied. Administered Medications: 11:24 Drug: Pepcid (famotidine) 20 mg Route: IVP; Site: right antecubital; iw 12:30 Follow up: Response: No adverse reaction iw 11:24 Drug: SOLU-Medrol (methylPrednisoLONE) 125 mg Route: IVP; Site: right antecubital; iw 12:30 Follow up: Response: No adverse reaction; Marked relief of symptoms iw 11:24 Drug: NS 0.9% 1000 ml Route: IV; Rate: 1000 ml; Site: right antecubital; iw 12:30 Follow up: IV Status: Completed infusion iw 11:58 Drug: Benadryl (diphenhydrAMINE) 12.5 mg Route: IVP; Site: right antecubital; iw 12:30 Follow up: Response: No adverse reaction iw Outcome: 12:11 Discharge ordered by . teja 12:33 Discharged to home ambulatory. iw 12:33 Discharged to 12:33 Condition: good 12:33 Discharge instructions given to patient, Instructed on discharge instructions, follow up and referral plans. medication usage, Demonstrated understanding of instructions, follow-up care, medications, Prescriptions given X 2. 12:34 Patient left the ED. iw Signatures: Shana Espinosa, DIRECTOR [employer] KANDY-Zakiya Shetty Irene, RN RN iw Holly Acuna RN RN jl7
--- NOTE | 2020-09-10 12:11 | EDPHYS ---
Physician Documentation [facility] Name: Mile Wang Age: 25 yrs Sex: Female : 1995 Arrival Date: 09/10/2020 Time: 10:11 Bed 23 Private MD: ED Physician Zen Villanueva HPI: 09/10 11:39 This 25 yrs old Female presents to ER via Ambulatory with complaints of Rash, kb Itching, Neck Swelling, covid+. 11:39 The patient's rash thought to be caused by an unknown cause. The rash is located on the kb body diffusely. The rash can be described as urticarial. Onset: The symptoms/episode began/occurred this morning. Associated signs and symptoms: Pertinent positives: itching. Severity of symptoms: At their worst the symptoms were moderate in the emergency department the symptoms are unchanged. The patient has not experienced similar symptoms in the past. The patient has not recently seen a physician. Pt reports she woke up to itching and noticed a rash. Reports rash has been getting worse and it to entire body now. Swelling and redness to back of neck. 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 - Social history:: Smoking status: Patient denies any tobacco usage or history of. ROS: 11:38 Constitutional: Negative for fever, chills, and weight loss. kb 11:38 Skin: Positive for rash, swelling, diffusely. 11:38 All other systems are negative. Exam: 11:38 Constitutional: This is a well developed, well nourished patient who is awake, alert, kb and in no acute distress. Head/Face: Normocephalic, atraumatic. ENT: Moist Mucous membranes Respiratory: Respirations even and unlabored. No increased work of breathing, no retractions or nasal flaring. MS/ Extremity: Pulses equal, no cyanosis. Neurovascular intact. Full, normal range of motion. Neuro: Awake and alert, GCS 15, oriented to person, place, time, and situation. Moves all extremities. Normal gait. Psych: Awake, alert, with orientation to person, place and time. Behavior, mood, and affect are within normal limits. 11:38 Skin: consistent with urticaria, and is diffusely located. Vital Signs: 10:37 BP 124 / 80; Pulse 108; Resp 17; Temp 98.7(O); Pulse Ox 100% on R/A; Weight 77.11 kg; jl7 Height 5 ft. 3 in. (160.02 cm); Pain 7/10; 10:37 Body Mass Index 30.11 (77.11 kg, 160.02 cm) jl7 MDM: 11:01 Patient medically screened. kb 11:34 Data reviewed: vital signs, nurses notes. Data interpreted: Pulse oximetry: on room air kb is 100 %. Interpretation: normal. Counseling: I had a detailed discussion with the patient and/or guardian regarding: the historical points, exam findings, and any diagnostic results supporting the discharge/admit diagnosis, the need for outpatient follow up, a family practitioner, to return to the emergency department if symptoms worsen or persist or if there are any questions or concerns that arise at home. 12:10 Response to treatment: the patient's symptoms have markedly improved after treatment. kb 09/10 11:09 Order name: IV Start; Complete Time: 11:24 kb Administered Medications: 11:24 Drug: Pepcid (famotidine) 20 mg Route: IVP; Site: right antecubital; iw 12:30 Follow up: Response: No adverse reaction iw 11:24 Drug: SOLU-Medrol (methylPrednisoLONE) 125 mg Route: IVP; Site: right antecubital; iw 12:30 Follow up: Response: No adverse reaction; Marked relief of symptoms iw 11:24 Drug: NS 0.9% 1000 ml Route: IV; Rate: 1000 ml; Site: right antecubital; iw 12:30 Follow up: IV Status: Completed infusion iw 11:58 Drug: Benadryl (diphenhydrAMINE) 12.5 mg Route: IVP; Site: right antecubital; iw 12:30 Follow up: Response: No adverse reaction iw Disposition: 13:26 Co-signature as Attending Physician, Zen Villanueva MD I agree with the assessment and joe plan of care. Disposition Summary: 09/10/20 12:11 Discharge Ordered Location: Home kb Condition: Stable kb Diagnosis - Urticaria, unspecified kb Followup: kb - With: Emergency Department - When: As needed - Reason: Worsening of condition Followup: kb - With: Private Physician - When: 2 - 3 days - Reason: Recheck today's complaints, Continuance of care, Re-evaluation by your physician Discharge Instructions: - Discharge Summary Sheet kb - Hives, [id number] kb Forms: - Medication Reconciliation Form kb - Thank You Letter kb - Antibiotic Education kb - Prescription Opioid Use kb - Work release form iw Prescriptions: - Pepcid 20 mg Oral Tablet - take 1 tablet by ORAL route every 12 hours for 5 days; 10 tablet; Refills: 0, kb Product Selection Permitted - Prednisone 20 mg Oral Tablet - take 1 tablet by ORAL route once daily for 5 days; 5 tablet; Refills: 0, kb Product Selection Permitted Signatures: Shana Espinosa, SANDRA GAITAN-Zen Greenberg MD MD cha Williams, Irene, RN RN iw Holly Acuna RN RN jl7
[2020-09-10 12:49] VITALS: BP 124/80; TEMP 98.7; O2SAT 100
== END 2020-09-10 12:34 | disposition home or self-care (01) ==
LOC: ER 10:10
DX: L50.9 Urticaria, unspecified (principal); Z88.1 Allergy status to other antibiotic agents; Z88.5 Allergy status to narcotic agent
CPT/HCPCS: 96361; 96375; 96374; 99283; J1200; J7030; J2930

== ENCOUNTER 2020-09-10 19:59 | Emergency (ER) | payer OTHER ==
--- OUTSIDE RECORDS SUMMARY | 2020-09-10 20:19 | XMS REPORT | Continuity of Care Document ---
:1995 Author Organization [facility] t Address [address] [place] [address] Care Team Providers Name Role Phone Asked, Pcp Primary Care Physician Unavailable Problems This patient has no known problems. Allergies, Adverse Reactions, Alerts This patient has no known allergies or adverse reactions. Social History Social Habit Start Date Stop Date Quantity Comments Source Tobacco use and 2019-01-02 2019-01-02 Never used Jayden Gleason ethodist exposure 00:00:00 00:00:00 Sex Ass[birth year] At [birth year] [place] [facility] 00:00:00 00:00:00 Smoking Status Start Date Stop Date Source Never smoker [place] [facility] t Medications This patient has no known medications. Procedures This patient has no known procedures. Plan of Care Planned Activity Planned Date Details Comments Source Future Scheduled 2020-10-07 INFLUENZA VACCINE [place] [facility] 00:00:00 [code = INFLUENZA VACCINE] Future Scheduled 2018 Screening for [facility]ist Test 00:00:00 malignant neoplasm of cervix (procedure) [code = 782315154] Future Scheduled 2015 Hepatitis C [place] [facility] Test 00:00:00 screening (procedure) [code = 064457355] Future Scheduled 2013 CHLAMYDIA SCREENING [place] [facility] Test 00:00:00 [code = CHLAMYDIA SCREENING] Future Scheduled 2009 COVID-19 VACCINE (1) [place] [facility] 00:00:00 [code = COVID-19 VACCINE (1)] Encounters Start End Encounter Admission Attending Care Care Encounter Source Date/Time Date/Time Type Type Clinicians Facility Department ID 2019-01-02 2019-01-02 Emergency [facility] [id number] [place] 00:00:00 00:00:[address] Results This patient has no known results.
[2020-09-10] MEDS ORDERED: NA CHLORIDE 0.9% 1,000 ML ONE ×2 (20:56→22:16)
[2020-09-10] MEDS ORDERED: LEVETIRACETAM 500 MG/5 ML VIAL IV ONE ×2 (20:56→21:50)
[2020-09-10] MEDS ORDERED: NA CHLORIDE 0.9% 100 ML ONE ×3 (20:56→23:38)
[2020-09-10] MEDS ORDERED: LORazepam 2 MG/ML VIAL ONE ×2 (20:56→21:50)
[2020-09-10 21:11] LABS: Absolute Lymphocytes (CBC) 0.9 K/uL (0.7-4.9); Basophils % 0.4 % (0-1.3); Hematocrit 40.1 % (36.0-45.0); Lymphocytes % 5.3 % (15.3-44.8)
[2020-09-10 21:12] LABS: Albumin 3.8 g/dL (3.4-5.0); Bilirubin Total 0.3 mg/dL (0.2-1.0); Magnesium 2.4 mg/dL (1.8-2.4); Potassium 3.9 mmol/L (3.5-5.1); Protein, Total 7.1 g/dL (6.4-8.2)
[2020-09-10] MEDS ORDERED: DIAZEPAM 10 MG/2 ML INJ SYRINGE ONE (22:16)
[2020-09-10 22:36] LABS: Blood Morphology Comment NOT SEEN (NOT SEEN); Platelet Estimate ADEQ
[2020-09-10 23:25] LABS: Urine Blood Trace-intact (Negative); Urine Glucose Negative (Negative); Urine Protein Negative (Negative)
[2020-09-10] MEDS ORDERED: DIPHENHYDRAMINE 50 MG/ML VIAL ONE (23:59)
[2020-09-11] MEDS ORDERED: FAMOTIDINE 20 MG TAB ONE (02:17)
--- NOTE | 2020-09-11 02:29 | ER ---
Nurse's Notes [facility] Name: Mile Wang Age: 25 yrs Sex: Female : 1995 Arrival Date: 09/10/2020 Time: 20:07 Bed 20 Private MD: Diagnosis: Other seizures-psychogenic seizures Presentation: 09/10 20:09 Chief complaint: EMS states: Pt had a seizure last night, was seen this morning in ED. vg1 Pt seized at an AA meeting about 20 minutes ago. AO x4, vitals stabled. Coronavirus screen: Client denies travel out of the [place] in the last 14 days. Ebola Screen: Patient negative for fever greater than or equal to 101.5 degrees Fahrenheit, and additional compatible Ebola Virus Disease symptoms. Initial Sepsis Screen: Does the patient meet any 2 criteria? No. Patient's initial sepsis screen is negative. Does the patient have a suspected source of infection? No. Patient's initial sepsis screen is negative. Risk Assessment: Do you want to hurt yourself or someone else? Patient reports no desire to harm self or others. Onset of symptoms was September 10, 2020. 20:09 Method Of Arrival: EMS: [facility] vg1 20:09 Acuity: BAIRON 3 vg1 Triage Assessment: 20:09 General: Appears in no apparent distress. comfortable, Behavior is calm, cooperative. vg1 20:09 Pain: Complains of pain in headache Pain currently is 8 out of 10 on a pain scale. vg1 EENT: No signs and/or symptoms were reported regarding the EENT system. Neuro: Level of Consciousness is awake, alert, obeys commands, Oriented to person, place, time, situation. Cardiovascular: Patient's skin is warm and dry. Respiratory: Airway is patent Respiratory effort is even, unlabored. GI: No signs and/or symptoms were reported involving the gastrointestinal system. : No signs and/or symptoms were reported regarding the genitourinary system. Derm: Skin is intact, is healthy with good turgor. Musculoskeletal: Circulation, motion, and sensation intact. 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 - Social history:: Patient/guardian denies using alcohol, street drugs, The patient lives with family, Smoking status: Patient denies any tobacco usage or history of. - Family history:: not pertinent. Screenin:01 Abuse screen: Denies threats or abuse. Nutritional screening: No deficits noted. vg1 Tuberculosis screening: No symptoms or risk factors identified. Fall Risk No fall in past 12 months (0 pts). No secondary diagnosis (0 pts). IV access (20 points). Ambulatory Aid- None/Bed Rest/Nurse Assist (0 pts). Gait- Normal/Bed Rest/Wheelchair (0 pts) Mental Status- Oriented to own ability (0 pts). Total Catalan Fall Scale indicates No Risk (0-24 pts). Assessment: 21:01 Reassessment: see triage. vg1 21:12 Reassessment: Pt seized for approximately one minute. vg1 21:24 Reassessment: Pt seized for approximately for 20 seconds. Provider at bedside. Received vg1 VO from Dr Gregg administer Ativan 1 mg IVP x1 and Keppra 1 g IV x1. 21:35 Reassessment: Patient is alert, oriented x 3, equal unlabored respirations, skin vg1 warm/dry/pink. Family at bedside. 22:00 Reassessment: Pt actively having a seizure, provider notified. Received orders 5mg of jb4 valium IV. Seizure last aprox 20 seconds. 22:30 Reassessment: Pt seizing, Provider notified, Given verbal order for 5mg Valium IV. Pt jb4 stopped seizing. Seizure lasted approximately 45 seconds. 22:47 Reassessment: Maya Gay . vg1 22:56 Reassessment: Kathya Burton, friend . vg1 23:35 Reassessment: Received verbal order for 50mg of Benadryl IV for hives and itching. jb4 09/11 00:35 Reassessment: Pt is currently awake and alert oriented x4. Has not had a seizure since jb4 phenytoin administration. Pt able to tolerate water, given her dose of Vimpat per providers orders. 01:21 Reassessment: Attempted to ambulate pt. Pt appears to be very unsteady, assisted back jb4 to bed. Provider notified. Pt continues to be free of seizures. hives have. IV infiltrated, removed, fully intact, pressure bandage applied. 02:09 Reassessment: Pt is resting in bed with eyes closed, respirations are even and jb4 unlabored with no s/s of pain or distress noted. 02:29 Reassessment: Patient appears in no apparent distress at this time. Patient and/or jb4 family updated on plan of care and expected duration. Pain level reassessed. Patient is alert, oriented x 3, equal unlabored respirations, skin warm/dry/pink. Pt ambulated around the unit with a steady gait. Provider notified, verbalized intent to discharge pt. Pt notified, ride called. 03:05 Reassessment: Patient appears in no apparent distress at this time. Patient and/or jb4 family updated on plan of care and expected duration. Pain level reassessed. Patient is alert, oriented x 3, equal unlabored respirations, skin warm/dry/pink. Pt and friend verbalized understanding of d/c and follow up instructions. Denies questions or concerns. pt assisted to friends vehicle via wheel chair. Vital Signs: 09/10 20:57 BP 140 / 68; Pulse 115; Resp 16; Temp 98.7; Pulse Ox 100% ; Weight 77.11 kg; Height 5 vg1 ft. 3 in. (160.02 cm); Pain 8/10; 21:00 BP 104 / 81; Pulse 106; Resp 16; Pulse Ox 99% on R/A; vg1 21:30 BP 129 / 60; Pulse 125; Resp 18; Pulse Ox 99% ; vg1 23:00 BP 103 / 50; Pulse 115; Resp 18; Pulse Ox 99% on R/A; jb4 09/11 03:05 BP 124 / 86; Pulse 107; Resp 16; Pulse Ox 100% on R/A; jb4 09/10 20:57 Body Mass Index 30.11 (77.11 kg, 160.02 cm) vg1 ED Course: 09/10 20:07 Patient arrived in ED. mw2 20:09 Deena Miramontes, JUAN M is Primary Nurse. vg1 20:09 Rodrigo La MD is Attending Physician. ma2 20:10 Maintain EMS IV. Dressing intact. Good blood return noted. Site clean \T\ dry. Gauge \T\ vg 1 site: 20 L AC. 20:13 Triage completed. vg1 20:57 Arm band placed on. vg1 21:01 Patient has correct armband on for positive identification. Placed in gown. Bed in low vg1 position. Call light in reach. Side rails up X2. Adult w/ patient. Seizure precautions initiated. 09/11 02:28 Cristian Fam MD is Referral Physician. ma2 03:05 No provider procedures requiring assistance completed. IV discontinued, intact, jb4 bleeding controlled, No redness/swelling at site. Pressure dressing applied. Administered Medications: 09/10 20:44 Drug: NS 0.9% 1000 ml Route: IV; Rate: 1 bolus; Site: left antecubital; vg1 20:46 Drug: Ativan (LORazepam) 0.5 mg Route: IVP; Site: left antecubital; vg1 20:52 Not Given (Patient Refused): Keppra (levETIRAcetam) 1000 mg IV at calculated rate once vg1 21:15 Drug: Ativan (LORazepam) 1 mg Route: IVP; Site: left antecubital; vg1 21:33 Drug: Ativan (LORazepam) 1 mg Route: IVP; Site: left antecubital; vg1 22:00 Follow up: Response: No adverse reaction jb4 21:35 Drug: Keppra (levETIRAcetam) 1000 mg Route: IV; Rate: calculated rate; Site: left vg1 antecubital; 22:00 Follow up: IV Status: Completed infusion jb4 22:00 Drug: Valium (diazepam) 5 mg Route: IVP; Site: left antecubital; jb4 22:30 Follow up: Response: No adverse reaction jb4 22:00 Drug: NS 0.9% 1000 ml Route: IV; Rate: 1 bolus; Site: left antecubital; jb4 09/11 00:00 Follow up: Response: No adverse reaction; IV Status: Completed infusion; IV Intake: jb4 1000ml 09/10 22:30 Drug: Valium (diazepam) 5 mg Route: IVP; Site: left antecubital; jb4 23:00 Follow up: Response: No adverse reaction jb4 23:23 Drug: Phenytoin 20 mg/kg Route: IVPB; Rate: calculated rate; Site: left antecubital; jb4 23:53 Follow up: Response: No adverse reaction; IV Status: Completed infusion; IV Intake: jb4 100ml 23:40 Drug: Benadryl (diphenhydrAMINE) 50 mg Route: IVP; Site: left antecubital; jb4 09/11 00:36 Follow up: Response: No adverse reaction; Marked relief of symptoms jb4 01:58 Drug: Pepcid (famotidine) 20 mg Route: PO; jb4 03:06 Follow up: Response: No adverse reaction; Marked relief of symptoms jb4 Intake: 09/10 23:53 IV: 100ml; Total: 100ml. jb4 09/11 00:00 IV: 1000ml; Total: 1100ml. jb4 Outcome: 02:28 Discharge ordered by . shikha 03:05 Discharged to home ambulatory. jb4 03:05 Condition: stable 03:05 Discharge instructions given to patient, friend, Instructed on discharge instructions, follow up and referral plans. Demonstrated understanding of instructions, follow-up care. 03:07 Patient left the ED. jb4 Signatures: Theodore Woods, RN RN jb4 Rodrigo La MD MD ma2 Shena Lennon2 Deena Miramontes RN RN vg1 Corrections: (The following items were deleted from the chart) 01:20 00:35 Reassessment: Pt is currently awake and alert. Has not had a seizure since jb4 phenytoin administration. Pt able to tolerate water, given her dose of Vimpat per providers orders. jb4
--- NOTE | 2020-09-11 02:30 | EDPHYS ---
Physician Documentation [facility] Name: Mile Wang Age: 25 yrs Sex: Female : 1995 Arrival Date: 09/10/2020 Time: 20:07 Bed 20 Private MD: ED Physician Rodrigo La HPI: 09/10 20:25 This 25 yrs old Female presents to ER via EMS with complaints of seizure. ma2 20:25 Onset: The symptoms/episode began/occurred gradually, 2 day(s) ago. Onset: The ma2 symptoms/episode began/occurred 1 day(s) ago. Associated signs and symptoms: Pertinent negatives: blurred vision, combativeness, diaphoresis, diarrhea. Severity of symptoms: At their worst the symptoms were mild in the emergency department the symptoms are unchanged. The patient has experienced similar episodes in the past, a few times, several times. patient was here today with allergic reaction . 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 - Social history:: Patient/guardian denies using alcohol, street drugs, The patient lives with family, Smoking status: Patient denies any tobacco usage or history of. - Family history:: not pertinent. ROS: 20:25 Constitutional: Negative for fever, chills, and weight loss. ma2 20:25 All other systems are negative. Exam: 20:25 Constitutional: This is a well developed, well nourished patient who is awake, alert, ma2 and in no acute distress. ENT: Nares patent. No nasal discharge, no septal abnormalities noted. Tympanic membranes are normal and external auditory canals are clear. Oropharynx with no redness, swelling, or masses, exudates, or evidence of obstruction, uvula midline. Mucous membranes moist. Neck: Trachea midline, no thyromegaly or masses palpated, and no cervical lymphadenopathy. Supple, full range of motion without nuchal rigidity, or vertebral point tenderness. No Meningismus. Chest/axilla: Normal chest wall appearance and motion. Nontender with no deformity. No lesions are appreciated. Cardiovascular: Regular rate and rhythm with a normal S1 and S2. No gallops, murmurs, or rubs. Normal PMI, no JVD. No pulse deficits. Respiratory: Lungs have equal breath sounds bilaterally, clear to auscultation and percussion. No rales, rhonchi or wheezes noted. No increased work of breathing, no retractions or nasal flaring. Abdomen/GI: Soft, non-tender, with normal bowel sounds. No distension or tympany. No guarding or rebound. No evidence of tenderness throughout. Skin: Warm, dry with normal turgor. Normal color with no rashes, no lesions, and no evidence of cellulitis. MS/ Extremity: Pulses equal, no cyanosis. Neurovascular intact. Full, normal range of motion. Neuro: Awake and alert, GCS 15, oriented to person, place, time, and situation. Cranial nerves II-XII grossly intact. Motor strength 5/5 in all extremities. Sensory grossly intact. Cerebellar exam normal. Normal gait. 09/11 02:29 CT study not indicated or reported. Reason for not performing CT: na ma2 Vital Signs: 09/10 20:57 BP 140 / 68; Pulse 115; Resp 16; Temp 98.7; Pulse Ox 100% ; Weight 77.11 kg; Height 5 vg1 ft. 3 in. (160.02 cm); Pain 8/10; 21:00 BP 104 / 81; Pulse 106; Resp 16; Pulse Ox 99% on R/A; vg1 21:30 BP 129 / 60; Pulse 125; Resp 18; Pulse Ox 99% ; vg1 23:00 BP 103 / 50; Pulse 115; Resp 18; Pulse Ox 99% on R/A; jb4 09/11 03:05 BP 124 / 86; Pulse 107; Resp 16; Pulse Ox 100% on R/A; 4 09/10 20:57 Body Mass Index 30.11 (77.11 kg, 160.02 cm) vg1 MDM: 09/10 20:09 Patient medically screened. ut2 20:25 Differential diagnosis: metabolic disorder, drug effects, seizure. [facility] 09/11 02:11 Data reviewed: vital signs, nurses notes. Counseling: I had a detailed discussion with [facility] the patient and/or guardian regarding: the historical points, exam findings, and any diagnostic results supporting the discharge/admit diagnosis, the presence of at least one elevated blood pressure reading (>120/80) during this emergency department visit, the need for outpatient follow up. Response to treatment: the patient's symptoms have markedly improved after treatment. 09/10 20:16 Order name: CBC with Diff [facility] 09/10 20:16 Order name: CMP [facility] 09/10 20:16 Order name: Magnesium [facility] 09/10 20:16 Order name: [place]; Complete Time: 22:15 [facility] 09/10 20:16 Order name: CBC with Automated Diff; Complete Time: 22:38 [facility] 09/10 20:16 Order name: Comprehensive Metabolic Panel; Complete Time: 21:23 [facility] 09/10 20:16 Order name: Magnesium; Complete Time: 21:23 [facility] 09/10 21:12 Order name: Manual Differential; Complete Time: 22:38 [facility] 09/10 23:25 Order name: Urine Dipstick-Ancillary [facility] 09/10 23:25 Order name: Urine Dipstick-Ancillary; Complete Time: 23:37 [facility] 09/10 23:37 Order name: Urine --Ancillary (enter results) [facility] 09/10 23:37 Order name: Urine --Ancillary; Complete Time: 02:29 [facility] 09/10 20:16 Order name: Urine Dipstick-Ancillary (obtain specimen); Complete Time: 23:36 [facility] 09/10 20:16 Order name: Urine Test (obtain specimen); Complete Time: 23:36 [facility] Administered Medications: 09/10 20:44 Drug: NS 0.9% 1000 ml Route: IV; Rate: 1 bolus; Site: left antecubital; vg1 20:46 Drug: Ativan (LORazepam) 0.5 mg Route: IVP; Site: left antecubital; vg1 20:52 Not Given (Patient Refused): Keppra (levETIRAcetam) 1000 mg IV at calculated rate once vg1 21:15 Drug: Ativan (LORazepam) 1 mg Route: IVP; Site: left antecubital; vg1 21:33 Drug: Ativan (LORazepam) 1 mg Route: IVP; Site: left antecubital; vg1 22:00 Follow up: Response: No adverse reaction jb4 21:35 Drug: Keppra (levETIRAcetam) 1000 mg Route: IV; Rate: calculated rate; Site: left vg1 antecubital; 22:00 Follow up: IV Status: Completed infusion jb4 22:00 Drug: Valium (diazepam) 5 mg Route: IVP; Site: left antecubital; jb4 22:30 Follow up: Response: No adverse reaction jb4 22:00 Drug: NS 0.9% 1000 ml Route: IV; Rate: 1 bolus; Site: left antecubital; jb4 09/11 00:00 Follow up: Response: No adverse reaction; IV Status: Completed infusion; IV Intake: jb4 1000ml 09/10 22:30 Drug: Valium (diazepam) 5 mg Route: IVP; Site: left antecubital; jb4 23:00 Follow up: Response: No adverse reaction jb4 23:23 Drug: Phenytoin 20 mg/kg Route: IVPB; Rate: calculated rate; Site: left antecubital; jb4 23:53 Follow up: Response: No adverse reaction; IV Status: Completed infusion; IV Intake: jb4 100ml 23:40 Drug: Benadryl (diphenhydrAMINE) 50 mg Route: IVP; Site: left antecubital; jb4 09/11 00:36 Follow up: Response: No adverse reaction; Marked relief of symptoms jb4 01:58 Drug: Pepcid (famotidine) 20 mg Route: PO; jb4 03:06 Follow up: Response: No adverse reaction; Marked relief of symptoms jb4 Disposition Summary: 09/11/20 02:28 Discharge Ordered Location: Home ma2 Condition: Stable ma2 Diagnosis - Other seizures - psychogenic seizures ma2 Followup: ma2 - With: Private Physician - When: Tomorrow - Reason: If symptoms return, Continuance of care Followup: ma2 - With: Cristian Fam MD - When: Tomorrow - Reason: If symptoms return, Recheck today's complaints Discharge Instructions: - Discharge Summary Sheet ma2 - Bipolar 1 Disorder ma2 Forms: - Medication Reconciliation Form ma2 - Thank You Letter ma2 - Antibiotic Education ma2 - Prescription Opioid Use ma2 Signatures: Dispatcher [employer] Zen Lu MD MD cha Bryson, James, RN RN jb4 Rodrigo La MD MD ma2 Deena Miramontes RN RN vg1
[2020-09-11 03:15] VITALS: TEMP 98.7
[2020-09-11 03:21] VITALS: BP 124/86; O2SAT 100
== END 2020-09-11 03:07 | disposition home or self-care (01) ==
LOC: ER 19:59
DX: G40.89 Other seizures (principal); F31.9 Bipolar disorder, unspecified; Z88.1 Allergy status to other antibiotic agents; Z88.5 Allergy status to narcotic agent
CPT/HCPCS: 96365; 96367; 96361; 85025; 36415; 83735; 81025; 80178; 81003; 80053; 96375; 99283; J1165; J1200; J3360; J1953; J7030 ×2

== ENCOUNTER 2020-09-11 11:00 | Emergency (ER) | payer OTHER ==
--- OUTSIDE RECORDS SUMMARY | 2020-09-11 11:27 | XMS REPORT | Continuity of Care Document ---
:1995 Author Organization [facility] t Address [address] [place] [address] Care Team Providers Name Role Phone Asked, Pcp Primary Care Physician Unavailable Yulia Cardenas Attending Clinician AkinsiHerb Cvoington Attending Clinician Problems This patient has no [...] Start Date Stop Date Source Never smoker [place] [facility] t Medications This patient has no known medications. Procedures This patient has no known procedures. Plan of Care Planned Activity Planned Date Details Comments Source Future Scheduled 2020-10-07 INFL[place]ENZA VACCINE [place] [facility] 00:00:00 [code = INFLUENZA VACCINE] Future Scheduled 2018 Screening for [facility] 00:00:00 malignant neoplasm of cervix (procedure) [code = 412000221] Future Scheduled 2015 Hepatitis C [facility] 00:00:00 screening (procedure) [code = 094288817] Future Scheduled 2013 CHLAMYDIA SCREENING [place] [facility] 00:00:00 [code = CHLAMYDIA SCREENING] Future Scheduled 2009 COVID-19 VACCINE (1) [facility] 00:00:00 [code = COVID-19 VACCINE (1)] Encounters Start End Encounter Admission Attending Care Care Encounter Source Date/Time Date/Time Type Type Clinicians Facility Department ID 2020-08-31 2020-08-31 [facility] [place] [facility] [id number] 11:19:00 13:58:00 Yulia Foley [id number] [place] [id number] [place] [id number] 2020-08-29 2020-08-29 [facility] [place] [facility] [id number] 20:48:00 23:11:00 Yulia Foley [id number] [place] [id number] [place] [id number] 2020-06-07 2020-06-07 Office [facility] [id number] 10:50:31 11:18:03 Visit 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
[2020-09-11] MEDS ORDERED: NA CHLORIDE 0.9% 1,000 ML ONE ×2 (11:36→14:16)
[2020-09-11] MEDS ORDERED: LORazepam 2 MG/ML VIAL ONE (11:40)
[2020-09-11 11:41] LABS: Absolute Lymphocytes (CBC) 2.7 K/uL (0.7-4.9); Basophils % 0.1 % (0-1.3); Lymphocytes % 13.7 % (15.3-44.8); RBC Red Blood Cell Count 4.25 M/uL (3.86-4.86)
[2020-09-11 11:59] LABS: ALT/SGPT 17 U/L (12-78); AST/SGOT 15 U/L (15-37); Albumin 3.4 g/dL (3.4-5.0); Alkaline Phosphatase 68 U/L (45-117); BUN Blood Urea Nitrogen 4 mg/dL (7-18); Bicarbonate 24 mmol/L (21-32); Bilirubin Direct 0.1 mg/dL (0-0.2); Bilirubin Total 0.4 mg/dL (0.2-1.0); Glucose Level 113 mg/dL (74-106); Potassium 3.3 mmol/L (3.5-5.1); Protein, Total 6.5 g/dL (6.4-8.2); Sodium Level 143 mmol/L (136-145)
[2020-09-11 12:07] LABS: Lithium 1.3 mmol/L (0.6-1.2)
[2020-09-11 12:10] LABS: Salicylates Level < 1.7 mg/dL (2.8-20)
[2020-09-11 12:18] LABS: Protime INR 0.97
[2020-09-11 14:07] LABS: Urine Blood Negative (Negative); Urine Glucose Negative (Negative); Urine Protein Negative (Negative); Urine Specific Gravity 1.015 (1.005-1.030); Urine pH 7.5 (5.0-7.0)
[2020-09-11 14:16] LABS: Urine Specific Gravity/Preg 1.015 (1.005-1.030)
[2020-09-11] MEDS ORDERED: METHYLPREDNISOLONE 40 MG INJ ONE (15:10)
[2020-09-11] MEDS ORDERED: DIPHENHYDRAMINE 50 MG/ML VIAL ONE (15:10)
[2020-09-11] MEDS ORDERED: POTASSIUM 25 MEQ EFFERV TAB ONE (15:10)
--- NOTE | 2020-09-11 15:18 | EDPHYS ---
Physician Documentation [facility] Name: Mile Wang Age: 25 yrs Sex: Female : 1995 Arrival Date: 09/11/2020 Time: 11:01 Bed 2 Private MD: Zen Coon HPI: 09/11 11:05 This 25 yrs old Female presents to ER via EMS with complaints of Seizure. cp 11:05 The patient presents after having a single isolated seizure, that lasted an unknown cp period of time, the episode(s) was witnessed, by co-worker(s). Character of seizure(s): Loss of consciousness: the patient experienced loss of consciousness, Motor activity: generalized, shaking all over, Incontinence: none. Seizure onset: just prior to arrival. Context: occurred at work. 11:05 Seizure Hx: Last seizure: The patient's last seizure yesterday, Seizure medications: cp Birdsong and Vimpat. 11:05 Associated injury: The patient did not suffer any apparent associated injury. EMS care: cp none. Current symptoms: drowsiness. 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 ROS: 11:10 Constitutional: Negative for body aches, chills, fever, poor PO intake. cp 11:10 Eyes: Negative for injury, pain, redness, and discharge. cp 11:10 ENT: Negative for ear pain, sore throat, difficulty swallowing, difficulty handling secretions. 11:10 Cardiovascular: Negative for chest pain. 11:10 Respiratory: Negative for cough, shortness of breath, wheezing. 11:10 Abdomen/GI: Negative for abdominal pain, nausea, vomiting, and diarrhea. 11:10 Neuro: Positive for history of seizure, Negative for altered mental status. 11:10 All other systems are negative. Exam: 11:12 ECG was reviewed by the Attending Physician. cp 11:15 Constitutional: The patient appears in no acute distress, non-toxic, well developed, cp well nourished. 11:15 Head/Face: Normocephalic, atraumatic. cp 11:15 Eyes: Periorbital structures: appear normal, Pupils: equal, round, and reactive to light and accomodation, Extraocular movements: intact throughout, Conjunctiva: normal, no exudate, no injection, Sclera: no appreciated abnormality, Lids and lashes: appear normal, bilaterally. 11:15 ENT: External ear(s): are unremarkable, Nose: is normal, Mouth: Lips: moist, Oral mucosa: moist, Posterior pharynx: Airway: no evidence of obstruction, patent. 11:15 Neck: ROM/movement: is normal, is supple, without pain, no range of motions limitations, no meningismus. 11:15 Chest/axilla: Inspection: normal, Palpation: is normal, no crepitus, no tenderness. 11:15 Cardiovascular: Rate: tachycardic, Rhythm: regular. 11:15 Respiratory: the patient does not display signs of respiratory distress, Respirations: normal, no use of accessory muscles, no retractions, labored breathing, is not present, Breath sounds: are clear throughout, no decreased breath sounds, no stridor, no wheezing. 11:15 Abdomen/GI: Inspection: abdomen appears normal, Palpation: abdomen is soft and non-tender, in all quadrants. 11:15 Neuro: Orientation: to person, place \T\ time. Mentation: able to follow commands, slow to respond, Motor: moves all fours, strength is normal, Sensation: no obvious gross deficits. Vital Signs: 11:05 BP 121 / 86; Pulse 110; Resp 16 S; Pulse Ox 100% on R/A; Weight 77.11 kg; Height 5 ft. iw 2 in. (157.48 cm); Pain 9/10; 11:27 BP 124 / 83; Pulse 128; Resp 28 S; Pulse Ox 100% on 2 lpm NC; aa5 11:27 Temp 97.8(TE); aa5 11:35 BP 108 / 57; Pulse 116; Resp 20 S; Pulse Ox 99% on 2 lpm NC; aa5 13:00 BP 115 / 57; Pulse 105; Resp 16 S; Pulse Ox 99% on R/A; aa5 14:00 BP 116 / 60; Pulse 91; Resp 16 S; Pulse Ox 99% on R/A; aa5 15:00 BP 110 / 62; Pulse 92; Resp 18 S; Temp 98.0(TE); Pulse Ox 99% on R/A; aa5 11:05 Body Mass Index 31.09 (77.11 kg, 157.48 cm) iw [place] Coma Score: 11:09 Eye Response: spontaneous(4). Verbal Response: oriented(5). Motor Response: obeys iw commands(6). Total: 15. MDM: 11:02 Patient medically screened. joe 11:30 Differential diagnosis: drug overdose, cardiac arrhythmia, seizure, electrolyte cp abnormality. 15:15 Data reviewed: vital signs, nurses notes, lab test result(s), EKG. 15:15 Test interpretation: by ED physician or midlevel provider: ECG. Counseling: I had a cp detailed discussion with the patient and/or guardian regarding: the historical points, exam findings, and any diagnostic results supporting the discharge/admit diagnosis, lab results, radiology results, the need for outpatient follow up, a neurologist, to return to the emergency department if symptoms worsen or persist or if there are any questions or concerns that arise at home. Response to treatment: the patient's symptoms have markedly improved after treatment, VSS. Patient alert times 3, observed ambulating in ED w/o assistance. Will discharge to home for continued monitoring. 09/11 11:03 Order name: Acetaminophen; Complete Time: 13:37 cp 09/11 11:03 Order name: Basic Metabolic Panel; Complete Time: 13:37 cp 09/11 13:37 Interpretation: Normal except: K 3.3; CL 113; GLUC 113; BUN 4; GFR 89. cp 09/11 11:03 Order name: CBC with Diff; Complete Time: 13:37 cp 09/11 14:41 Interpretation: Normal except: WBC 19.80; GINETTE% 80.7; LYM% 13.7; NEUT A 16.0. cp 09/11 11:03 Order name: ETOH Level; Complete Time: 13:37 cp 09/11 11:03 Order name: Hepatic Function; Complete Time: 13:37 cp 09/11 11:03 Order name: PT-INR; Complete Time: 13:37 cp 09/11 11:03 Order name: Ptt, Activated; Complete Time: 13:37 cp 09/11 11:03 Order name: Salicylate; Complete Time: 13:37 cp 09/11 11:03 Order name: Urine Drug Screen cp 09/11 11:03 Order name: Birdsong; Complete Time: 13:37 cp 09/11 13:37 Interpretation: Abnormal: LI 1.3. cp 09/11 14:07 Order name: Urine --Ancillary (enter results); Complete Time: 14:41 bd 09/11 14:07 Order name: Urine Dipstick-Ancillary EDMS 09/11 11:03 Order name: EKG; Complete Time: 11:04 cp 09/11 11:03 Order name: EKG - Nurse/Tech; Complete Time: 11:17 cp 09/11 11:03 Order name: IV Saline Lock; Complete Time: 11:16 cp 09/11 11:03 Order name: Labs collected and sent; Complete Time: 11:16 cp 09/11 11:03 Order name: Urine Dipstick-Ancillary (obtain specimen); Complete Time: 14:13 cp 09/11 11:03 Order name: Urine Test (obtain specimen); Complete Time: 14:13 cp 09/11 11:03 Order name: Seizure Precautions; Complete Time: 11:22 cp EC:12 Rate is 106 beats/min. Rhythm is regular. TN interval is normal. QRS interval is cp normal. QT interval is normal. Interpreted by me. Reviewed by me. Administered Medications: 11:22 Drug: NS 0.9% 1000 ml Route: IV; Rate: 1 bolus; Site: right antecubital; aa5 12:30 Follow up: IV Status: Completed infusion; IV Intake: 1000ml aa5 11:22 Drug: Ativan (LORazepam) 2 mg Route: IVP; Site: right antecubital; aa5 11:30 Follow up: Response: No adverse reaction aa5 14:00 Drug: NS 0.9% 1000 ml Route: IV; Rate: 1 bolus; Site: right antecubital; bp 15:00 Follow up: IV Status: Completed infusion; IV Intake: 1000ml aa5 14:55 Drug: Benadryl (diphenhydrAMINE) 25 mg Route: IVP; Site: right antecubital; aa5 15:00 Follow up: Response: No adverse reaction aa5 14:55 Drug: SOLU-Medrol (methylPrednisoLONE) 80 mg Route: IVP; Site: right antecubital; aa5 15:00 Follow up: Response: No adverse reaction aa5 14:55 Drug: Potassium Effervescent Tablet 50 mEq Route: PO; aa5 15:58 Follow up: Response: No adverse reaction aa5 Disposition: 18:53 Co-signature as Attending Physician, Zen Villanueva MD I agree with the assessment and joe plan of care. Disposition Summary: 09/11/20 15:16 Discharge Ordered Location: Home cp Problem: an ongoing problem cp Symptoms: have improved cp Condition: Stable cp Diagnosis - Other seizures cp Followup: cp - With: Richard Desai MD - When: 1 - 2 days - Reason: Recheck today's complaints Discharge Instructions: - Discharge Summary Sheet cp - Potassium Content of Foods cp - Seizure, Adult cp Forms: - Medication Reconciliation Form cp - Thank You Letter cp - Work release form iw - Antibiotic Education cp - Prescription Opioid Use cp Signatures: Dispatcher [employer] Zen Lu MD MD cha Williams, Irene, RN RN iw Marixa Livingston RN RN aa5 Zen Pierre, ROSA PA cp Davon Santillan RN RN bp Corrections: (The following items were deleted from the chart) 11:57 11:03 Suicide Screening ([place]) ordered. cp aa5
--- NOTE | 2020-09-11 15:18 | ER ---
Nurse's Notes [facility] Name: Mile Wang Age: 25 yrs Sex: Female : 1995 Arrival Date: 09/11/2020 Time: 11:01 Bed 2 Private MD: Diagnosis: Other seizures Presentation: 09/11 11:05 Chief complaint: EMS states: pt was at work, witnessed seizure by coworkers, was found iw on ground , +hx of seizures, was seen here last night for seizures, states she started Vimpat 2 weeks ago and is due to see her neurologist 09-21-20, was also treated for rash/allergic reaction yesterday, started on prednisone , pt oriented X 3. Coronavirus screen: At this time, the client does not indicate any symptoms associated with coronavirus-19. Ebola Screen: Patient negative for fever greater than or equal to 101.5 degrees Fahrenheit, and additional compatible Ebola Virus Disease symptoms Patient denies exposure to infectious person. Patient denies travel to an Ebola-affected area in the 21 days before illness onset. No symptoms or risks identified at this time. Initial Sepsis Screen: Does the patient meet any 2 criteria? No. Patient's initial sepsis screen is negative. Does the patient have a suspected source of infection? No. Patient's initial sepsis screen is negative. Risk Assessment: Do you want to hurt yourself or someone else? Patient reports no desire to harm self or others. Onset of symptoms was September 11, 2020. 11:05 Method Of Arrival: EMS: [facility] iw 11:05 Acuity: BAIRON 3 iw 11:09 Care prior to arrival: IV initiated. 18 GA, in the right antecubital area. iw Triage Assessment: 11:09 General: Appears in no apparent distress. Behavior is calm, cooperative. Pain: iw Complains of pain in head. Neuro: Level of Consciousness is awake, alert, obeys commands. 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 Screenin:05 Abuse screen: Denies threats or abuse. Nutritional screening: No deficits noted. aa5 Tuberculosis screening: No symptoms or risk factors identified. Fall Risk Fall in past 12 months (25 points). Secondary diagnosis (15 points) seizures, IV access (20 points). Total Catalan Fall Scale indicates High Risk Score (45 or more points). Fall prevention measures have been instituted. Side Rails Up X 2 Placed Close to Nursing Station. Assessment: 11:05 General: Appears comfortable, Behavior is calm, cooperative. Pain: Complains of pain in aa5 head Pain currently is 9 out of 10 on a pain scale. Quality of pain is described as aching, Is continuous. Neuro: Level of Consciousness is awake, alert, obeys commands, Oriented to person, place, time, situation. Cardiovascular: Heart tones S1 S2 present Rhythm is regular. Respiratory: Airway is patent Respiratory effort is even, unlabored, Respiratory pattern is regular, symmetrical. GI: No signs and/or symptoms were reported involving the gastrointestinal system. : No signs and/or symptoms were reported regarding the genitourinary system. EENT: No signs and/or symptoms were reported regarding the EENT system. Derm: Skin is pink, warm \\T\\ dry. Musculoskeletal: Range of motion: intact in all extremities. 11:21 Reassessment: Seizure activity noted, lasting approximately 1 minute, O2 sat 100% RA aa5 during seizure activity. PA was notified. . 11:25 Reassessment: Pt now drowsy and A\\T\\O x 4, able to answer questions, pt states her aa5 neurologist is Dr. Pennington. . 11:35 Reassessment: Pt resting in bed with eyes closed, respirations even and unlabored, skin aa5 is pink/warm/dry. . 12:15 Reassessment: Pt resting in bed with eyes closed, respirations even and unlabored, skin aa5 is pink/warm/dry. . 13:00 Reassessment: Patient is alert, oriented x 3, equal unlabored respirations, skin aa5 warm/dry/pink. Pt assisted to restroom, ambulatory, pt unable to provide urine specimen at this time. Pt placed back in bed. . 14:00 Reassessment: Patient is alert, oriented x 3, equal unlabored respirations, skin aa5 warm/dry/pink. Pt assisted to restroom, ambulatory. Urine collected. Pt c/o itching "everywhere", pt states "I was here for a rash last night and was given steroids and Benadryl". PA was notified, pt requesting Benadryl. . 15:00 Reassessment: Pt resting in bed with eyes closed, respirations even and unlabored, skin aa5 is pink/warm/dry. . Vital Signs: 11:05 BP 121 / 86; Pulse 110; Resp 16 S; Pulse Ox 100% on R/A; Weight 77.11 kg; Height 5 ft. iw 2 in. (157.48 cm); Pain 9/10; 11:27 BP 124 / 83; Pulse 128; Resp 28 S; Pulse Ox 100% on 2 lpm NC; aa5 11:27 Temp 97.8(TE); aa5 11:35 BP 108 / 57; Pulse 116; Resp 20 S; Pulse Ox 99% on 2 lpm NC; aa5 13:00 BP 115 / 57; Pulse 105; Resp 16 S; Pulse Ox 99% on R/A; aa5 14:00 BP 116 / 60; Pulse 91; Resp 16 S; Pulse Ox 99% on R/A; aa5 15:00 BP 110 / 62; Pulse 92; Resp 18 S; Temp 98.0(TE); Pulse Ox 99% on R/A; aa5 11:05 Body Mass Index 31.09 (77.11 kg, 157.48 cm) iw [place] Coma Score: 11:09 Eye Response: spontaneous(4). Verbal Response: oriented(5). Motor Response: obeys iw commands(6). Total: 15. ED Course: 11:01 Patient arrived in ED. aa5 11:02 Zen Pierre PA is PHCP. cp 11:02 Zen Villanueva MD is Attending Physician. cp 11:05 Marixa Livingston, JUAN M is Primary Nurse. aa5 11:07 Triage completed. iw 11:08 Arm band placed on. iw 11:10 Maintain EMS IV. Dressing intact. Good blood return noted. Site clean \\T\\ dry. Gauge \\T\\ iw site: 18 RAC. 11:20 Seizure precautions initiated. aa5 11:39 No provider procedures requiring assistance completed. aa5 15:15 Richard Desai MD is Referral Physician. cp 15:59 IV discontinued, intact, bleeding controlled, No redness/swelling at site. Pressure iw dressing applied. Administered Medications: 11:22 Drug: NS 0.9% 1000 ml Route: IV; Rate: 1 bolus; Site: right antecubital; aa5 12:30 Follow up: IV Status: Completed infusion; IV Intake: 1000ml aa5 11:22 Drug: Ativan (LORazepam) 2 mg Route: IVP; Site: right antecubital; aa5 11:30 Follow up: Response: No adverse reaction aa5 14:00 Drug: NS 0.9% 1000 ml Route: IV; Rate: 1 bolus; Site: right antecubital; bp 15:00 Follow up: IV Status: Completed infusion; IV Intake: 1000ml aa5 14:55 Drug: Benadryl (diphenhydrAMINE) 25 mg Route: IVP; Site: right antecubital; aa5 15:00 Follow up: Response: No adverse reaction aa5 14:55 Drug: SOLU-Medrol (methylPrednisoLONE) 80 mg Route: IVP; Site: right antecubital; aa5 15:00 Follow up: Response: No adverse reaction aa5 14:55 Drug: Potassium Effervescent Tablet 50 mEq Route: PO; aa5 15:58 Follow up: Response: No adverse reaction aa5 Intake: 12:30 IV: 1000ml; Total: 1000ml. aa5 15:00 IV: 1000ml; Total: 2000ml. aa5 Outcome: 15:16 Discharge ordered by . cp 16:01 Discharged to home ambulatory, with friend. iw 16:01 Condition: good 16:01 Discharge instructions given to patient, Instructed on discharge instructions, follow up and referral plans. Demonstrated understanding of instructions, follow-up care. 16:02 Patient left the ED. iw Signatures: Nadja Nick RN RN iw Marixa Livingston RN RN aa5 Zen Pierre PA PA Davon Madera RN RN bp Corrections: (The following items were deleted from the chart) 18:23 14:00 Reassessment: Patient is alert, oriented x 3, equal unlabored respirations, skin aa5 warm/dry/pink. Pt assisted to restroom, ambulatory. Urine collected. Pt c/o itching "everywhere", pt states "I was here for a rash and was given steroids and benadryl". PA was notified, pt requesting Benadryl. . aa5
[2020-09-11 15:21] LABS: Barbiturates NEGATIVE (NEGATIVE); Benzodiazepines NEGATIVE (NEGATIVE); Cocaine NEGATIVE (NEGATIVE); METHAMPHETAM NEGATIVE (NEGATIVE); Methadone NEGATIVE (NEGATIVE); Opiates NEGATIVE (NEGATIVE); Phencyclidine NEGATIVE (NEGATIVE); THC Cannibis NEGATIVE (NEGATIVE)
[2020-09-11 16:32] VITALS: O2SAT 99
[2020-09-11 16:41] VITALS: BP 110/62; TEMP 98
--- NOTE | 2020-09-12 13:02 | EKG ---
Test Date: 2020-09-11 Test Time: 11:08:38 Foreclosure Specialist: WINIFRED MEASUREMENT RESULTS: Intervals: Rate: 106 VT: 186 QRSD: 82 QT: 300 QTc: 398 [place]: P: 59 VT: 186 QRS: 74 T: 14 INTERPRETIVE STATEMENTS: Sinus tachycardia Nonspecific T wave abnormality Abnormal ECG Compared to ECG 02/25/2019 14:06:22 T-wave abnormality now present Electronically Signed On 09-12-20 12:59:41 CDT by Uday Bunch
== END 2020-09-11 16:02 | disposition home or self-care (01) ==
LOC: ER 11:00
DX: G40.89 Other seizures (principal); F31.9 Bipolar disorder, unspecified; Z88.1 Allergy status to other antibiotic agents; Z88.5 Allergy status to narcotic agent
CPT/HCPCS: 96361; 93005; 85025; 80048; 36415; 80320; 80329 ×2; 81025; 85610; 80178; 80076; 85730; 81003; 80307; 96375; 96374; 99283; J1200; J7030 ×2; J2920

== ENCOUNTER 2020-09-13 17:12 | Observation (INO) | payer OTHER ==
--- OUTSIDE RECORDS SUMMARY | 2020-09-13 17:14 | XMS REPORT | Continuity of Care Document ---
:1995 Author Organization [facility] t Address [address] [place] [address] Care Team Providers Name Role Phone Yulia Cardenas Attending Clinician Singer [place] Attending Clinician Akinsipe Herb WALLACE Attending Clinician Problems This patient has no known problems. Allergies, Adverse Reactions, Alerts This patient has no known allergies or adverse reactions. Medications This patient has no known medications. Procedures This patient has no known procedures. Encounters Start End Encounter Admission Attending Care Care Encounter Source Date/Time Date/Time Type Type Clinicians Facility Department ID 2020-09-12 2020-09-13 Emergency [place] [id number] 19:41:00 00:37:00 Yulia Foley [id number] [place] [id number] [place] [address] [id number] 2020-09-11 2020-09-11 Emergency [place] [id number] 20:23:00 22:08:00 Wong Foley [id number] [place] [id number] [place] [address] [id number] 2020-08-31 2020-08-31 Emergency Kwaku [facility] [id number] 11:19:00 13:58:00 Yulia Foley [id number] [place] [id number] [place] [id number] 2020-08-29 2020-08-29 Emergency Kwaku, Peace [facility] [id number] 20:48:00 23:11:00 Yulia [place] [id number] [place] [id number] [place] [id number] 2020-06-07 2020-06-07 Office Irma [facility] [id number] 10:50:31 11:18:03 Visit Enedina Estevez [employer] [id number] [facility] [id number] MATERNAL [id number] & CHILD [address] [place] [address] 2019-01-02 2019-01-02 Emergency [facility] [id number] [place] [address] 00:00:00 00:00:[address] Results This patient has no known results.
[2020-09-13] MEDS ORDERED: NA CHLORIDE 0.9% 1,000 ML ONE (17:45)
[2020-09-13] MEDS ORDERED: levETIRAcetam 1,000 MG in NA CHLORIDE 0.9% 100 ML IV ONE (17:45)
[2020-09-13] MEDS ORDERED: LORazepam 2 MG/ML VIAL ONE (17:47)
--- NOTE | 2020-09-13 17:59 | ER ---
Nurse's Notes [facility] Name: Mile Wang Age: 25 yrs Sex: Female : 1995 Arrival Date: 09/13/2020 Time: 17:13 Bed 6 Private MD: Diagnosis: Epilepsy, unspecified, not intractable, with status epilepticus;Dehydration Presentation: 09/13 17:13 Chief complaint: Patient states: Seizure x 2 today while at [facility] just [employer]. Given 2mg ll1 Ativan en route for Seizure activity, stopped immediately. Was postictal on scene. Sinus tach on scene, vitals otherwise WNL. Has a a seizure everyday for the past 4 days, but states she is taking her medications as prescribed. Coronavirus screen: Client denies travel out of the [place] in the last 14 days. At this time, the client does not indicate any symptoms associated with coronavirus-19. Ebola Screen: Patient denies travel to an Ebola-affected area in the 21 days before illness onset. Initial Sepsis Screen: Does the patient meet any 2 criteria? HR > 90 bpm. No. Patient's initial sepsis screen is negative. Does the patient have a suspected source of infection? No. Patient's initial sepsis screen is negative. Risk Assessment: Do you want to hurt yourself or someone else? Patient reports no desire to harm self or others. Onset of symptoms was September 13, 2020. 17:13 Method Of Arrival: EMS [facility] 17:13 Acuity: BAIRON 3 ll1 Triage Assessment: 22:42 General: Appears in no apparent distress. comfortable, Behavior is calm, cooperative, jm8 appropriate for age. Historical: - Allergies: 17:16 tramadol; ll1 17:16 Doxycycline; ll1 17:16 Vimpat; ll1 - PMHx: 17:16 Anxiety; Bipolar disorder; Psychogenic Seizures; Seizures; ll1 - Immunization history:: Flu vaccine is not up to date. - Social history:: Smoking status: Patient denies any tobacco usage or history of. - Family history:: not pertinent. - Hospitalizations: : No recent hospitalization is reported. Screenin:17 Abuse screen: Denies threats or abuse. Nutritional screening: No deficits noted. ll1 Tuberculosis screening: No symptoms or risk factors identified. Fall Risk Secondary diagnosis (15 points) seizures, IV access (20 points). Gait- Impaired (20 pts.). Mental Status- Overestimates/Forgets Limitations (15 pts.). Total Catalan Fall Scale indicates High Risk Score (45 or more points). Fall prevention measures have been instituted. Side Rails Up X 2 Frequent Obs/Assessments Occuring As available patient and family educated on Fall Prevention Program and Strategies. Assessment: 17:18 Pain: Complains of pain in HEAD Quality of pain is described as aching, Pain began 30 ll1 min ago. Neuro: Level of Consciousness is awake, alert, obeys commands, Oriented to person, place, time, situation, Appropriate for age Contact Lens Assistant are equal bilaterally Moves all extremities. Full function Speech is normal, Facial symmetry appears normal, Reports headache Seizure activity reported prior to arrival. Patient is post-ictal at this time. Cardiovascular: No deficits noted. Respiratory: No deficits noted. GI: No deficits noted. 17:25 Reassessment: seizure activity while Dr. Brenner was at bedside. He maintained airway ll1 while I got Ativan out of the phyxis. . 18:32 Reassessment: Seizure activity again, Dr. Brenner to bedside. . ll1 19:39 Reassessment: Patient and/or family updated on plan of care and expected duration. Pain ak2 level reassessed. Vital Signs: 17:13 BP 132 / 72; Pulse 117; Resp 18; Temp 99.1; Pulse Ox 100% on R/A; Weight 78.02 kg; ll1 Height 5 ft. 3 in. (160.02 cm); Pain 8/10; 19:07 BP 118 / 59; Pulse 115; Resp 18; Pulse Ox 99% on R/A; ll1 19:51 BP 114 / 52; Pulse 76; Resp 16; Pulse Ox 100% ; jm8 20:41 BP 106 / 81; Pulse 71; Resp 16; Pulse Ox 100% on R/A; jm8 22:12 BP 105 / 78; Pulse 95; Resp 16; Pulse Ox 100% on R/A; jm8 17:13 Body Mass Index 30.47 (78.02 kg, 160.02 cm) ll1 ED Course: 17:13 Patient arrived in ED. sv 17:13 Stella Aldridge, JUAN M is Primary Nurse. ll1 17:13 Arm band placed on Patient placed in an exam room, on a stretcher. ll1 17:14 Mesfin Brenner MD is Attending Physician. rn 17:16 Triage completed. ll1 17:17 Patient has correct armband on for positive identification. Bed in low position. Call ll1 light in reach. Side rails up X2. Pulse ox on. NIBP on. 17:18 Maintain EMS IV. Dressing intact. Good blood return noted. Site clean \T\ dry. Gauge \T\ ll 1 site: 22 G R hand. 17:58 Te Esquivel DO is Hospitalizing Provider. rn 18:24 Gregg Brenner MD is Hospitalizing Provider. rn 19:30 IV discontinued. 8 19:30 Inserted saline lock: 18 gauge in left antecubital area, using aseptic technique. Blood 8 collected. Accessed peripheral vein via ultrasound, utilizing dynamic ultrasound technique. 22:42 No provider procedures requiring assistance completed. Patient admitted, IV remains in [address] Administered Medications: 17:26 Drug: Ativan (LORazepam) 2 mg Route: IVP; Site: right hand; ll1 22:11 Follow up: Response: No adverse reaction [facility] 17:30 Drug: NS 0.9% 1000 ml Route: IV; Rate: 1000 ml; Site: right hand; ll1 22:21 Follow up: IV Status: Completed infusion 8 17:46 Not Given (Patient Refused): Keppra (levETIRAcetam) 1000 mg IV at calculated rate once 19:15 Not Given (Patient Refused): Phenytoin 1 grams IVPB once ll1 Outcome: 17:58 Decision to Hospitalize by Provider. rn 22:09 Patient left the ED. 8 22:42 Admitted to Med/surg accompanied by nurse, via wheelchair. [facility] 22:42 Condition: good 22:42 Instructed on the need for admit. Signatures: Nguyen Loya RN RN Mesfin Brenner MD MD rn Lewis, Lynsay, RN RN 1 Shahid Aguero RN RN 8 Rasheed Martinez [facility]
--- NOTE | 2020-09-13 17:59 | EDPHYS ---
Physician Documentation [facility] Name: Mile Wang Age: 25 yrs Sex: Female : 1995 Arrival Date: 09/13/2020 Time: 17:13 Bed 6 Private MD: ED Physician Mesfin Brenner HPI: 09/13 17:22 This 25 yrs old Female presents to ER via EMS with complaints of seizure. rn 17:22 The patient presents with a history of multiple seizures, an unknown number. Character rn of seizure(s): Loss of consciousness: it is not known if the patient experienced loss of consciousness, Motor activity: generalized, Incontinence: none, Apnea: the patient did not experience apnea, Circulation: the patient did not experience evidence of pulse disturbance, Eye movements: are unknown. Seizure onset: just prior to arrival. Associated injury: The patient did not suffer any apparent associated injury. EMS care: Ativan. Current symptoms: Currently, the patient is not experiencing any symptoms. The patient has experienced similar episodes in the past. Reports recently found out allergic to her vimpat that she takes for seizures, only taking gabapentin and lithium currently, not able to take her vimpat, and has been here several times for seizures lately. Reports usually has them at home and doesn't come in, today happened at [facility], EMS called, maybe 2 or 3 seizures.. . 17:31 Has now had 3 seizures prior to arrival, given 2 mg ativan prior to arrival. Sister rn states knows has some psychogenic seizures but these seem different. . Historical: - Allergies: 17:16 tramadol; ll1 17:16 Doxycycline; ll1 17:16 Vimpat; ll1 - PMHx: 17:16 Anxiety; Bipolar disorder; Psychogenic Seizures; Seizures; ll1 - Immunization history:: Flu vaccine is not up to date. - Social history:: Smoking status: Patient denies any tobacco usage or history of. - Family history:: not pertinent. - Hospitalizations: : No recent hospitalization is reported. ROS: 17:31 Constitutional: Negative for fever, chills, and weight loss, Eyes: Negative for injury, rn pain, redness, and discharge, Neck: Negative for injury, pain, and swelling, Cardiovascular: Negative for chest pain, palpitations, and edema, Respiratory: Negative for shortness of breath, cough, wheezing, and pleuritic chest pain, Abdomen/GI: Negative for abdominal pain, nausea, vomiting, diarrhea, and constipation, Back: Negative for injury and pain, : Negative for injury, bleeding, discharge, and swelling, MS/Extremity: Negative for injury and deformity, Skin: Negative for injury, and discoloration, Neuro: Negative for headache, weakness, numbness, tingling Exam: 17:31 Constitutional: This is a well developed, well nourished patient who is awake, alert, rn and in no acute distress. Sitting upright on her own power Head/Face: Normocephalic, atraumatic. Eyes: Pupils equal round and reactive to light, extra-ocular motions intact. Lids and lashes normal. Conjunctiva and sclera are non-icteric and not injected. Cornea within normal limits. Periorbital areas with no swelling, redness, or edema. ENT: + dry MM Neck: Trachea midline, no thyromegaly or masses palpated, and no cervical lymphadenopathy. Supple, full range of motion without nuchal rigidity, or vertebral point tenderness. No Meningismus. Cardiovascular: Tachycardic, regular Respiratory: Speaking full sentences unlabored. No increased work of breathing, no retractions or nasal flaring. Abdomen/GI: soft, non-tender Skin: Warm, dry MS/ Extremity: Pulses equal, no cyanosis. Neuro: Awake and alert, GCS 15, oriented to person, place, time, and situation. Cranial nerves II-XII grossly intact. Motor strength 5/5 in all extremities. Sensory grossly intact. Cerebellar exam normal. Vital Signs: 17:13 BP 132 / 72; Pulse 117; Resp 18; Temp 99.1; Pulse Ox 100% on R/A; Weight 78.02 kg; ll1 Height 5 ft. 3 in. (160.02 cm); Pain 8/10; 19:07 BP 118 / 59; Pulse 115; Resp 18; Pulse Ox 99% on R/A; ll1 19:51 BP 114 / 52; Pulse 76; Resp 16; Pulse Ox 100% ; jm8 20:41 BP 106 / 81; Pulse 71; Resp 16; Pulse Ox 100% on R/A; jm8 22:12 BP 105 / 78; Pulse 95; Resp 16; Pulse Ox 100% on R/A; jm8 17:13 Body Mass Index 30.47 (78.02 kg, 160.02 cm) ll1 MDM: 17:14 Patient medically screened. rn 17:31 Differential diagnosis: seizure, pseudoseizure, dehydration, medication noncompliance. rn . Data reviewed: vital signs, nurses notes, old medical records. ED course: Had complete w/u with drug screen and lithium levels 2 days ago, no gross findings other than elevated WBC. Pt denies fever, doesn't feel ill, no meningismus. Will repeat some blood, fill in holes with CT head and ekg, will likely admit given 3 seizures prior to arrival and another seizure here. The seizure here was generalized, lasted approx 1 min, broke after 2 mg ativan, did not flinch with sternal rub/jaw thrust/other painful stimuli. Did not have any response to painful stimuli at all. Sister states has had mixture of real seizures and psychogenic in past. . 17:55 Counseling: I had a detailed discussion with the patient and/or guardian regarding: the rn historical points, exam findings, and any diagnostic results supporting the discharge/admit diagnosis, the need for further work-up and treatment in the hospital. Response to treatment: the patient's symptoms have markedly improved after treatment, and as a result, I will admit patient. Admission orders: after a detailed discussion of the patient's condition and case, the admit orders are written by me. 18:33 ED course: Pt had another episode here, looked different, began with eyes deviated rn upward, then progressed to general convulsion, but this time blinks and protects eyes during confrontation. Entire episode stopped after about 20-30 seconds and no meds given. Happened when lab attempting to draw blood, sister states "hates needles". . 09/13 17:55 Order name: CBC with Diff rn 09/13 17:55 Order name: Basic Metabolic Panel rn 09/13 17:22 Order name: CT Head Brain wo Cont rn 09/13 18:08 Order name: COVID-19 : Document "Date of Symptom Onset" if Symptomatic. ss 09/13 18:09 Order name: CORONAVIRUS EDFL 09/13 21:26 Order name: SARS-COV-2 RT PCR EDFL 09/13 17:22 Order name: IV Start; Complete Time: 17:23 rn 09/13 17:22 Order name: EKG; Complete Time: 17:22 rn 09/13 17:22 Order name: EKG - Nurse/Tech; Complete Time: 17:23 rn 09/13 19:25 Order name: CT EDMS Administered Medications: 17:26 Drug: Ativan (LORazepam) 2 mg Route: IVP; Site: right hand; ll1 22:11 Follow up: Response: No adverse reaction jm8 17:30 Drug: NS 0.9% 1000 ml Route: IV; Rate: 1000 ml; Site: right hand; ll1 22:21 Follow up: IV Status: Completed infusion jm8 17:46 Not Given (Patient Refused): Keppra (levETIRAcetam) 1000 mg IV at calculated rate once sv 19:15 Not Given (Patient Refused): Phenytoin 1 grams IVPB once ll1 Disposition Summary: 09/13/20 17:58 Hospitalization Ordered Hospitalization Status: Inpatient Admission rn Condition: Stable rn Problem: an ongoing problem rn Symptoms: have improved rn Bed/Room Type: Standard rn Provider: Gregg Brenner(09/13/20 18:25) rn Location: Telemetry/MedSurg (Inpatient)(09/13/20 21:58) cg Room Assignment: [facility](09/13/20 22:03) cg Diagnosis - Epilepsy, unspecified, not intractable, with status epilepticus rn - Dehydration rn Forms: - Medication Reconciliation Form rn - SBAR form rn Signatures: Dispatcher [employer] EDMS Mesfin Brenner MD MD rn Garcia, Cindy, RN RN Stella Aldridge RN RN 1 Nguyen Loya RN Shahid Aguero RN 8 Corrections: (The following items were deleted from the chart) 18:25 17:58 Te Esquivel rn rn 21:37 17:58 Telemetry/MedSurg (Inpatient) rn cg 21:37 17:58 rn cg 21:58 21:37 [facility] ER HOLD cg cg 21:58 21:37 ERHOLD- cg cg 22:03 21:58 cg cg
[2020-09-13] MEDS ORDERED: PHENYTOIN Inj 1,000 MG in NA CHLORIDE 0.9% 100 ML IV ONE (19:00)
[2020-09-13 19:18] LABS: Absolute Lymphocytes (CBC) 2.5 K/uL (0.7-4.9); Basophils % 0.7 % (0-1.3); Hematocrit 37.8 % (36.0-45.0); Lymphocytes % 14.3 % (15.3-44.8); MPV 8.4 fL (7.6-11.3); RBC Red Blood Cell Count 4.39 M/uL (3.86-4.86)
--- NOTE | 2020-09-13 19:24 | RAD REPORT ---
EXAM DESCRIPTION: CT - Head Brain Wo Cont - 09/13/2020 7:18 pm CLINICAL HISTORY: SEIZURE Headache, drowsiness, seizure COMPARISON: Head Brain Wo Cont dated 02/25/2019; Head Brain Wo Cont dated 11/26/2016 TECHNIQUE: All CT scans are performed using dose optimization technique as appropriate and may inclu de automated exposure control or mA/KV adjustment according to patient size. FINDINGS: No intracranial hemorrhage, hydrocephalus or extra-axial fluid collection.No areas of brai n edema or evidence of midline shift. The paranasal sinuses and mastoids are clear. The calvarium is intact. IMPRESSION: No acute intracranial abnormality.
[2020-09-13 20:03] LABS: BUN Blood Urea Nitrogen 8 mg/dL (7-18); Bicarbonate 30 mmol/L (21-32); Glucose Level 100 mg/dL (74-106); Potassium 3.5 mmol/L (3.5-5.1); Sodium Level 143 mmol/L (136-145)
--- NOTE | 2020-09-13 20:08 | P.HP ---
Certification for Inpatient Patient admitted to: Observation With expected LOS: <2 Midnights Patient will require the following post-hospital care: None Practitioner: I am a practitioner with admitting privileges, knowledge of patient current condition, hospital course, and medical plan of care. Services: Services provided to patient in accordance with Admission requirements found in Title 42 Section 412.3 of the Code of Federal Regulations Patient History Date of Service: 09/13/20 Primary Care Provider: Dr. Stephenson Reason for admission: Seizures History of Present Illness: 25-year-old female with history of pseudoseizures/epileptic disorder presents emergency department for seizures. Patient reports that she has had approximately 4-6 seizures today and 10 yesterday. Patient was recently taken off of Vimpat due to allergic reaction, previously was on Keppra but this did not control her seizures. Patient had witnessed seizure in the emergency department and was unresponsive to tactile\painful stimulus during the episode, appear to be a true epileptic seizure versus psychogenic. Patient had additional seizure x2 in the emergency department, ED provider wishes to admit for further evaluation and management. When I saw the patient in the ER she is awake, alert, oriented x3, drowsy. Case was discussed with neurology who recommended loading dose of 1 g of Dilantin IV followed by 300 mg nightly. Will admit under observation with seizure precautions, patient has followup planned with her neurologist on the of this month and prolonged EEG scheduled for the . Allergies No Known Drug Allergies Allergy (Verified 12/02/14 04:52) Unknown doxycycline Adverse Reaction (Verified 07/30/20 14:40) Nausea/Vomiting tramadol Adverse Reaction (Verified 07/30/20 14:40) Nausea/Vomiting No Known Allergies Allergy (Uncoded 07/17/15 19:15) Unknown Home Medications: Buspirone HCl [Buspar*] 1 tab PO BID 07/30/20 Bern Carbonate [Bern Carbonate ER] 2 tab PO BID 07/30/20 Amox/Clavulanate [Augmentin 875-125 Tab] 1 tab PO BID 7 Days #14 tab 08/01/20 Hydrocodone 5/APAP 325 [[place] 5/325] 1 tab PO Q8H 3 Days #9 tab 08/01/20 - Past Medical/Surgical History Diabetic: No -: Anxiety -: Bipolar -: Seizure -: tonsillectomy Psychosocial/ Personal History: Lives at home with family - Family History Father -: Diabetes Mother -: Other (see notes) (Patient was adopted.) Notes: bipolar - Social History Smoking Status: Unknown if ever smoked Alcohol use: No CD- Drugs: No Caffeine use: No Place of Residence: Home Review of Systems Unremarkable Physical Examination - Physical Exam General: Alert, In no apparent distress HEENT: Atraumatic, PERRLA, Mucous membr. moist/pink, EOMI, Sclerae nonicteric Neck: Supple, 2+ carotid pulse no bruit, No LAD, Without JVD or thyroid abnormality Respiratory: Clear to auscultation bilaterally, Normal air movement Cardiovascular: Regular rate/rhythm, Normal S1 S2 Gastrointestinal: Normal bowel sounds, No tenderness Musculoskeletal: No tenderness Integumentary: No rashes Neurological: Normal gait, Normal speech, Normal strength at 5/5 x4 extr, Normal tone, Normal affect Lymphatics: No axilla or inguinal lymphadenopathy Assessment and Plan - Plan Assessment Seizures with history of epilepsy and psychogenic/pseudoseizures Anxiety/BPD Plan Seizures with history of epilepsy and psychogenic/pseudoseizures: Patient with multiple witnessed seizures in the emergency department, case discussed with neurology continue with loading dose of Dilantin 1 g IV in the emergency department followed by 300 mg p.o. nightly. Will monitor under observation with seizure precautions overnight, patient need to follow up with her neurologist for scheduled appointment on the as well as prolonged EEG later this month on the . Vital signs stable this time, patient alert oriented x3. No focal neurological deficits noted, workup in the emergency department unremarkable. DVT prophylaxis Lovenox 40 mg subcutaneous once daily. Anxiety/BPD: Obtain and continue medications Discharge Plan: Home Plan to discharge in: 24 Hours - Advance Directives Does patient have a Living Will: No Does patient have a Durable POA for Healthcare: No - Code Status/Comfort Care Code Status Assessed: Yes (Full code) Critical Care: No Time Spent Managing Pts Care (In Minutes): 55
[2020-09-13] MEDS: NA CHLORIDE 0.9% 1,000 ML IV SCH (22:33)
[2020-09-13] MEDS ORDERED: LORazepam 2 MG/ML VIAL IV PRN (22:33)
[2020-09-13] MEDS ORDERED: ONDANSETRON 4 MG/2 ML VIAL IV PRN (22:33)
[2020-09-13] MEDS ORDERED: hydrOXYzine HCL 25 MG TAB PO PRN (22:33)
[2020-09-13] MEDS ORDERED: ACETAMINOPHEN 500 MG TAB PO PRN (22:33)
[2020-09-13] MEDS ORDERED: predniSONE 20 MG TAB PO ONE (23:25)
[2020-09-13] MEDS ORDERED: hydrOXYzine HCL 25 MG TAB PO ONE (23:41)
[2020-09-14] MEDS: HEPARIN 5000 UNIT/ML 1 ML VIAL SQ SCH ×2 (01:00→08:59)
[2020-09-14 01:08] VITALS: BMI 30.4
[2020-09-14 04:31] LABS: Absolute Lymphocytes (CBC) 1.6 K/uL (0.7-4.9); Basophils % 0.1 % (0-1.3); Hematocrit 36.1 % (36.0-45.0); Lymphocytes % 10.4 % (15.3-44.8); MPV 8.1 fL (7.6-11.3); RBC Red Blood Cell Count 4.16 M/uL (3.86-4.86)
[2020-09-14 04:52] LABS: BUN Blood Urea Nitrogen 7 mg/dL (7-18); Bicarbonate 29 mmol/L (21-32); Glucose Level 121 mg/dL (74-106); Potassium 3.8 mmol/L (3.5-5.1); Sodium Level 145 mmol/L (136-145); Thyroid Stimulating Hormone 0.931 uIU/mL (0.360-3.740)
[2020-09-14] MEDS: NA CHLORIDE 0.9% 1,000 ML IV SCH (07:55)
[2020-09-14 08:07] VITALS: O2SAT 98
[2020-09-14] MEDS ORDERED: POTASSIUM CL SA 10 MEQ TAB PO ONE (09:00)
[2020-09-14] MEDS ORDERED: BUSPIRONE HCL 5 MG TABLET PO SCH (09:00)
[2020-09-14] MEDS ORDERED: FOLIC ACID 1 MG TABLET PO SCH (09:00)
[2020-09-14] MEDS ORDERED: LITHIUM CARBONATE 300 MG PO SCH ×2 (09:00)
[2020-09-14 12:07] VITALS: BP 117/60; TEMP 98.2
[2020-09-14] MEDS ORDERED: PHENYTOIN ER 100 MG CAP PO ONE (13:30)
--- NOTE | 2020-09-14 14:40 | P.DS ---
Admission Date: 09/13/20 Discharge Date: 09/14/20 Primary Care Provider: Dr. Stephenson Disposition: ROUTINE DISCHARGE Discharge Condition: GOOD Reason for Admission: Seizures Consultations: Neurology -Dr. Fam Procedures: CT Head (09/13): FINDINGS: No intracranial hemorrhage, hydrocephalus or extra-axial fluid collection.No areas of brain edema or evidence of midline shift. The paranasal sinuses and mastoids are clear. The calvarium is intact. IMPRESSION: No acute intracranial abnormality. Problem List Seizures with history of epilepsy and psychogenic/pseudoseizures Anxiety/Bipolar disorder Brief History of Present Illness: 25-year-old female with history of pseudoseizures/epileptic disorder presents emergency department for seizures. Patient reports that she has had approximately 4-6 seizures today and 10 yesterday. Patient was recently taken off of Vimpat due to allergic reaction, previously was on Keppra but this did not control her seizures. Patient had witnessed seizure in the emergency department and was unresponsive to tactile\\painful stimulus during the episode, appear to be a true epileptic seizure. Patient had additional seizure x2 in the emergency department, ED provider wishes to admit for further evaluation and management. Hospital Course: Neurology was consulted. Patient was loaded with IV dilantin, and discharged home with maintenance dose of 300mg nightly. She had no further seizure like activity on day of discharge. [place] level was checked and noted to be high. Recommended decrease dosage to 600mg BID from 600mg in AM / 900mg QHS She will f/u with her Neurologist - Dr. Desai as scheduled next week. Already planned to have EEG monitoring. Instructed on not driving a car or operating heavy machinery for 3 months from date of her last seizure. She did test positive for COVID-19 again, but did not have any symptoms. Reports she seemed to have "gotten over" her infection ~1 week ago. Vital Signs/Physical Exam: Physical Exam General: Alert, In no apparent distress HEENT: PERRL, MMM, EOMI Neck: Supple, 2+ carotid pulse no bruit Respiratory: Clear to auscultation bilaterally, Normal air movement Cardiovascular: Regular rate/rhythm, Normal S1 S2 Gastrointestinal: soft, nontender, nondistended Neurological: Normal gait, Normal speech, Normal strength at 5/5 x4 extr, Normal tone, Normal affect Temp Pulse Resp BP Pulse Ox 98.2 F 89 16 117/60 100 09/14/20 12:00 09/14/20 12:00 09/14/20 12:00 09/14/20 12:00 09/14/20 12:00 Laboratory Data at Discharge: WBC 15.10 K/uL (4.3-10.9) H D 09/14/20 03:46 Hgb 11.7 g/dL (12.0-15.0) L 09/14/20 03:46 Hct 36.1 % (36.0-45.0) 09/14/20 03:46 Plt Count 336 K/uL (152-406) 09/14/20 03:46 Sodium 145 mmol/L (136-145) 09/14/20 03:46 Potassium 3.8 mmol/L (3.5-5.1) 09/14/20 03:46 BUN 7 mg/dL (7-18) 09/14/20 03:46 Creatinine 0.56 mg/dL (0.55-1.3) 09/14/20 03:46 Glucose 121 mg/dL (74-106) H 09/14/20 03:46 Home Medications: Buspirone HCl [Buspar] 10 mg PO BID 09/13/20 Gabapentin 300 mg PO TID 09/13/20 hydrOXYzine pamoate [Hydroxyzine Pamoate] 50 mg PO TID PRN MDD 150 09/13/20 Folic Acid 1 mg PO DAILY 30 Days #30 tablet 09/14/20 [place] Carbonate [Lithotabs *] 600 mg PO BID tab 09/14/20 PHENYTOIN ER Cap [Dilantin ER Cap*] 300 mg PO BEDTIME 30 Days #90 cap 09/14/20 New Medications: PHENYTOIN ER Cap [Dilantin ER Cap*] 300 mg PO BEDTIME 30 Days #90 cap Folic Acid 1 mg PO DAILY 30 Days #30 tablet Physician Discharge Instructions: You were started on dilantin for your seizures and had improvement. You are prescribed 300mg dilantin at bedtime. Your lithium level was noted to be high, recommend reducing your dose to 600mg twice a day. Follow up with your PCP and Neurologist as scheduled in the next 1-2 weeks. Diet: Regular Activity: Ad lisbet Followup: NONE,NONE [Primary Care Provider] - 1-2 Weeks (Call for appointment.) Time spent managing pt's care (in minutes): 45
--- NOTE | 2020-09-14 15:39 | CON ---
Consultation called because of seizures. History Of Present Illness: Ms. Wang is a 25-year-old patient with bipolar disorder, seizures, pseudoseizures, who comes in with multiple dktz-dp-[id number] seizures. She is followed by a neurologist in [facility] system, Dr. Richard Desai. She reportedly had 6 seizures on the day of admission, that is 0 09/13/2020 and 10 seizures prior to that. She was given Vimpat for seizures, but had an allergic reac tion and that medication was stopped. She was given Keppra, but was not compliant and the medication reportedly was not controlling seizures. In the Emergency Room at [facility], she was witn essed to have multiple seizures which did not moira with tactile stimulation, consistent with it bein g an epileptic versus a nonepileptic seizure. She was treated with a gram load of fosphenytoin which stopped the event and then put on 300 mg nightly. Her Dilantin level this morning was 9.9, and she was just given a 500 mg additional dose of Dilantin then to continue later today with 300 mg at night . In her hospital room, she was in no acute distress at the time and was recovering. Her workup did reveal a positive COVID test, that is COVID-19 and she had been on prednisone and had an elevated ite blood cell count of initially 19,800, now 15,100 today. She has not had additional seizure since Dilantin load. Past Medical History: As indicated. Surgical History: Tonsillectomy. Allergies: DOXYCYCLINE AND TRAMADOL. Medications: At home, BuSpar twice daily, lithium 600 mg in morning and 900 mg at night, Augmentin a nd [place] 5/325 every 8 hours. Family History: Diabetes in father and bipolar in the mother. Social History: The patient states she was actually positive for marijuana and she says it is just 3 .3% marijuana. She works in the [employer] business. Review of Systems: Despite the COVID positive test, she denies any recent fevers or chills, nausea, vomiting, cough, justin rtness of breath, myalgias, arthralgias, rash, weight change, or other issues. Physical Examination: Vital Signs: Blood pressure 117/60, pulse 89, respiratory rate 16, temperature 98.2, oxygen saturati on 100% on room air. General: Ms. Wang is resting in bed. She is in no acute distress. HEENT: She is normocephalic, atraumatic. Sclerae anicteric. Oropharynx is pink and moist. Neck: Supple. Chest: Clear. Heart: Regular. Extremities: Show no clubbing, cyanosis, or edema. Neurologic: She is alert and oriented to situation, place, and person. She follows commands appropr iately. Cranial nerves 2 through 12 intact. Motor examination shows 5/5 strength proximally and dis tally in upper and lower extremities. Sensory exam intact to light touch, pinprick, temperature in t he arms and legs. Coordination intact in upper and lower extremities. Reflexes 2+ in the upper and lower extremities and symmetric gait. She has good stance and stride. Assessment: Ms. Wang is a 25-year-old patient with reported bipolar disorder, seizures, pseudo seizures, and anxiety, who has had witnessed event consistent with an epileptic seizure. She had an allergic reaction to Vimpat and was not on Keppra as she should have been. She is now loaded with Di lantin and actually another loading dose to increase her blood level to around 15. She is on a maint enance now 300 mg Dilantin nightly. Plan: 1.Discharge the patient. 2.She will follow up with Dr. Richard Desai, her neurologist at [facility] where she may have an EEG cara toring and appropriate adjustment of medications. 3.She was instructed that she should not do vaping or use marijuana. 4.She was instructed to observe seizure precautions which she should not drive a car or operate [employer] machinery for 3 months from the date of her last seizure. 5.She may be discharged home and take precautions as appropriate for being positive for COVID-19. LB/MODL Voice ID: [id number] Report ID: [id number]
[2020-09-14] MEDS ORDERED: PHENYTOIN ER 100 MG CAP PO SCH (21:00)
[2020-09-14] MEDS ORDERED: GABAPENTIN 300 MG CAP PO SCH (21:00)
[2020-09-14] MEDS ORDERED: LITHIUM CARBONATE 300 MG TAB PO SCH ×3 (21:00)
== END 2020-09-14 15:20 | disposition home or self-care (01) ==
LOC: ER 17:12 → ERHOLD 18:36 → 4TH 22:09
PROVIDERS: ADMIT Hospitalist; ATTEND Hospitalist
DX: G40.909 Epilepsy, unspecified, not intractable, without status epilepticus (principal); F31.9 Bipolar disorder, unspecified; F41.9 Anxiety disorder, unspecified; U07.1 COVID-19
CPT/HCPCS: 96361; 85025 ×2; 80048 ×2; 36415; 80185; 84443; 84439; 70450; 96374; 99285; U0003; J1165; J1644; J7512; J7030 ×2; G0378 ×3; J1953

== ENCOUNTER 2020-09-15 22:32 | Emergency (ER) | payer OTHER ==
--- OUTSIDE RECORDS SUMMARY | 2020-09-15 22:35 | XMS REPORT | Continuity of Care Document ---
:1995 Author Organization [facility] t Address [address] [place] [address] Care Team Providers Name Role Phone Asked, Pcp Primary Care Physician Unavailable Glenis TAYLOR, B Attending Clinician Yulia Cardenas Attending Clinician Singer BIRMINGHAM Attending Clinician Akinsiaure WHCNP, C Attending Clinician Problems This patient has no known problems. Allergies, Adverse Reactions, Alerts This patient has no known allergies or adverse reactions. Social History Social Habit Start Date Stop Date Quantity Comments Source Tobacco use and 2019-01-02 2019-01-02 Never used Jayden Gleason ethodist exposure 00:00:00 00:00:00 Sex [birth year] At [birth year] Carpenter Rosibel ethodist 00:00:00 00:00:00 Smoking Status Start Date Stop Date Source Never smoker [place] Methodis t Medications This patient has no known medications. Procedures This patient has no known procedures. Plan of Care Planned Activity Planned Date Details Comments Source Future Scheduled 2020-10-07 INFLUENZA VACCINE Gamaliel velarde Muslim Test 00:00:00 [code = INFLUENZA VACCINE] Future Scheduled 2018 Screening for Jayden Jimenez thodist Test 00:00:00 malignant neoplasm of cervix (procedure) [code = 408149042] Future Scheduled 2015 Hepatitis C Jayden hodist Test 00:00:00 screening (procedure) [code = 392569327] Future Scheduled 2013 CHLAMYDIA SCREENING Kristine lopez Muslim Test 00:00:00 [code = CHLAMYDIA SCREENING] Future Scheduled 2009 COVID-19 VACCINE (1) Ricci pascual Muslim Test 00:00:00 [code = COVID-19 VACCINE (1)] Encounters Start End Encounter Admission Attending Care Care Encounter Source Date/Time Date/Time Type Type Clinicians Facility Department ID 2020-09-14 2020-09-15 Emergency Glenis, [place] [id number] 21:58:00 00:49:00 [facility] [id number] 2020-09-12 2020-09-13 Emergency [facility] [id number] 19:41:00 00:37:00 Yulia Foley [id number] [place] [id number] [place] [id number] 2020-09-11 2020-09-11 Emergency [facility] [id number] 20:23:00 22:08:00 Wong Foley [id number] [place] [id number] [place] [id number] 2020-08-31 2020-08-31 [facility] Kwaku [facility] [id number] 11:19:00 13:58:00 Yulia Foley [id number] [place] [id number] [place] [id number] 2020-08-29 2020-08-29 Emergency Kwaku [facility] [id number] 20:48:00 23:11:00 Yulia Foley [id number] [place] [id number] [place] [id number] 2020-06-07 2020-06-07 Office Akinjoanie, [facility] [id number] 10:50:31 11:18:03 Visit Enedina Estevez [facility] [id number] [facility] [id number] MATERNAL [id number] & CHILD [address] [place] [address] 2019-01-02 2019-01-02 Emergency [facility] [id number] 54 [place] 00:00:00 00:00:[address] Results This patient has no known results.
[2020-09-16 00:40] LABS: Absolute Lymphocytes (CBC) 5.1 K/uL (0.7-4.9); Basophils % 0.2 % (0-1.3); Hematocrit 33.8 % (36.0-45.0); Lymphocytes % 32.2 % (15.3-44.8); MPV 7.8 fL (7.6-11.3); RBC Red Blood Cell Count 3.88 M/uL (3.86-4.86)
--- NOTE | 2020-09-16 00:42 | ER ---
Nurse's Notes [facility] Name: Mile Wang Age: 25 yrs Sex: Female : 1995 Arrival Date: 09/15/2020 Time: 22:39 Bed 2 Private MD: Diagnosis: Other seizures Presentation: 09/15 22:40 Chief complaint: EMS states: Pt had 3 witnessed seizures at home, has been postictal jb4 the entire time with us. Has brief periods or being verbal. No meds given, 20g IV inititiated to the right AC. 22:40 Coronavirus screen: Client denies travel out of the [place] in the last 14 days. At this jb4 time, the client does not indicate any symptoms associated with coronavirus-19. Ebola Screen: No symptoms or risks identified at this time. Initial Sepsis Screen: Does the patient meet any 2 criteria? HR > 90 bpm. Yes Does the patient have a suspected source of infection? No. Patient's initial sepsis screen is negative. Risk Assessment: Do you want to hurt yourself or someone else? Patient reports no desire to harm self or others. Onset of symptoms was September 15, 2020. 22:40 Method Of Arrival: EMS: [facility] jb4 22:40 Acuity: BAIRON 3 jb4 Historical: - Allergies: 22:40 Doxycycline; jb4 22:40 tramadol; jb4 22:40 Vimpat; jb4 - Home Meds: 22:40 buspirone 5 mg Oral tab 1 tab 2 times per day [Active]; Rover Carbonate Oral jb4 [Active]; Carbamazepine Oral [Active]; Zofran Oral [Active]; benzonatate oral [Active]; Prednisone Oral [Active]; Topamax Oral [Active]; - PMHx: 22:40 Anxiety; Bipolar disorder; Psychogenic Seizures; Seizures; jb4 - Immunization history:: Adult Immunizations up to date. - Social history:: Smoking status: Patient denies any tobacco usage or history of. Patient/guardian denies using alcohol, street drugs. Screenin:40 Abuse screen: Denies threats or abuse. Nutritional screening: No deficits noted. jb4 Tuberculosis screening: No symptoms or risk factors identified. Fall Risk None identified. Assessment: 22:50 General: Appears in no apparent distress. comfortable, Behavior is calm, cooperative, jb4 agitated. Pain: Complains of pain in Headache Pain does not radiate. Pain currently is 7 out of 10 on a pain scale. Neuro: Level of Consciousness is awake, alert, obeys commands, Oriented to person, place, time, situation. Cardiovascular: Patient's skin is warm and dry. Respiratory: Airway is patent Respiratory effort is even, unlabored, Respiratory pattern is regular, symmetrical. GI: No signs and/or symptoms were reported involving the gastrointestinal system. : No signs and/or symptoms were reported regarding the genitourinary system. EENT: No signs and/or symptoms were reported regarding the EENT system. Derm: Skin is intact, Skin is pink, warm \\T\\ dry. Musculoskeletal: Circulation, motion, and sensation intact. Range of motion: intact in all extremities. 09/16 00:00 Reassessment: Patient appears in no apparent distress at this time. Patient and/or jb4 family updated on plan of care and expected duration. Pain level reassessed. Patient is alert, oriented x 3, equal unlabored respirations, skin warm/dry/pink. 00:56 Reassessment: Pt remains awake and alert x4. Pt informed that leaving AMA prior to all jb4 test being completed, Symptoms could return or worsen up to the point of . Pt verbalized understanding of risk. States " I am going to follow up with my neurologist. I don't want to be here and I want to leave.". Vital Signs: 09/15 22:40 BP 141 / 79; Pulse 93; Resp 18; Temp 98.1(O); Pulse Ox 99% on R/A; Weight 74.84 kg (R); jb4 Height 5 ft. 4 in. (162.56 cm) (R); Pain 6/10; 23:30 BP 120 / 72; Pulse 80; Resp 16; Pulse Ox 99% on R/A; jb4 22:40 Body Mass Index 28.32 (74.84 kg, 162.56 cm) [facility] ED Course: 22:39 Patient arrived in ED. [facility] 22:39 Theodore Woods, RN is Primary Nurse. 4 22:40 Arm band placed on right wrist. 4 22:40 Patient has correct armband on for positive identification. Bed in low position. Call [facility] light in reach. Side rails up X 1. Pulse ox on. NIBP on. 22:41 Ted Gu, LASHON is PHCP. pm1 22:41 Samir Carter MD is Attending Physician. pm1 23:05 Triage completed. jb4 09/16 00:26 Initial lab(s) drawn, by me, sent to lab. Maintain EMS IV. Dressing intact. Good blood lp1 return noted. Site clean \\T\\ dry. Gauge \\T\\ site: 20g IV to R AC. 00:40 No provider procedures requiring assistance completed. IV discontinued, intact, jb4 bleeding controlled, No redness/swelling at site. Pressure dressing applied. Administered Medications: 00:52 Not Given (Patient Refused): Ketorolac 30 mg IVP once jb4 Outcome: 00:40 AMA AMA form signed jb4 00:57 Patient left the ED. jb4 Signatures: Sallie Barkley RN RN lp1 Ted Gu, LASHON DISPLAY TRIMMER pm1 Theodore Woods RN RN jb4
--- NOTE | 2020-09-16 00:42 | EDPHYS ---
Physician Documentation [facility] Name: Mile Wang Age: 25 yrs Sex: Female : 1995 Arrival Date: 09/15/2020 Time: 22:39 Bed 2 Private MD: ED Physician Samir Carter HPI: 09/15 23:06 This 25 yrs old Female presents to ER via EMS with complaints of Seizures. pm1 23:06 The patient presents after having a possible seizure episode. Character of seizure(s): pm1 unknown. Patient does not know and the individual that witness the seizure did not come. Seizure onset: today. Context: Unknown. According to consultation notes from neurologist yesterday. Patient with a history of noncompliance to Keppra. Patient reports that she does not take it because it does not work. Seizure Hx: Last seizure: The patient's last seizure was approximately 2 day(s) ago. Associated injury: The patient did not suffer any apparent associated injury. EMS care: none. Current symptoms: headache. The patient has experienced similar episodes in the past, multiple times. The patient has been recently been admitted at [facility], was discharged yesterday, for similar complaints. Historical: - Allergies: 22:40 Doxycycline; jb4 22:40 tramadol; jb4 22:40 Vimpat; jb4 - Home Meds: 22:40 buspirone 5 mg Oral tab 1 tab 2 times per day [Active]; Fouke Carbonate Oral jb4 [Active]; Carbamazepine Oral [Active]; Zofran Oral [Active]; benzonatate oral [Active]; Prednisone Oral [Active]; Topamax Oral [Active]; - PMHx: 22:40 Anxiety; Bipolar disorder; Psychogenic Seizures; Seizures; jb4 - Immunization history:: Adult Immunizations up to date. - Social history:: Smoking status: Patient denies any tobacco usage or history of. Patient/guardian denies using alcohol, street drugs. ROS: 23:06 Constitutional: Negative for fever, chills, and weight loss, Cardiovascular: Negative pm1 for chest pain, palpitations, and edema, Respiratory: Negative for shortness of breath, cough, wheezing, and pleuritic chest pain, Abdomen/GI: Negative for abdominal pain, nausea, vomiting, diarrhea, and constipation, MS/Extremity: Negative for injury and deformity, Skin: Negative for injury, rash, and discoloration. 23:06 Neuro: Positive for headache, seizure activity. 23:06 All other systems are negative. Exam: 23:06 Constitutional: This is a well developed, well nourished patient who is awake, alert, pm1 and in no acute distress. Head/Face: Normocephalic, atraumatic. 23:06 Neck: Trachea midline, no thyromegaly or masses palpated, and no cervical lymphadenopathy. Supple, full range of motion without nuchal rigidity, or vertebral point tenderness. No Meningismus. 23:06 Back: No spinal tenderness. No costovertebral tenderness. Full range of motion. Skin: Warm, dry with normal turgor. Normal color with no rashes, no lesions, and no evidence of cellulitis. MS/ Extremity: Pulses equal, no cyanosis. Neurovascular intact. Full, normal range of motion. 23:06 Eyes: Exam is negative for acute changes, Pupils: no acute changes, normal reaction to light, Extraocular movements: no acute changes, Conjunctiva: no acute changes, no injection. 23:06 ENT: Exam is negative for acute changes, Mouth: Lips: normal, Oral mucosa: normal, pink and intact, moist. 23:06 Cardiovascular: Exam negative for acute changes, Rate: normal, Rhythm: regular, Pulses: no pulse deficits are appreciated. 23:06 Respiratory: Exam negative for acute changes, respiratory distress, shortness of breath. 23:06 Abdomen/GI: Exam negative for acute changes, Palpation: abdomen is soft and non-tender, in all quadrants. 23:06 Neuro: Exam negative for acute changes, Orientation: is normal, Mentation: is normal, Motor: is normal, moves all fours. Vital Signs: 22:40 BP 141 / 79; Pulse 93; Resp 18; Temp 98.1(O); Pulse Ox 99% on R/A; Weight 74.84 kg (R); jb4 Height 5 ft. 4 in. (162.56 cm) (R); Pain 6/10; 23:30 BP 120 / 72; Pulse 80; Resp 16; Pulse Ox 99% on R/A; jb4 22:40 Body Mass Index 28.32 (74.84 kg, 162.56 cm) jb4 MDM: 22:58 Patient medically screened. pm1 23:36 ED course: pseudoseizure witnessed by Mich Krueger. Patient with no postictal period. pm1 Patient moving all extremities. Duration for 1-2 minutes. 23:58 Data reviewed: vital signs. Data interpreted: Pulse oximetry: on room air is 99 %. pm1 Interpretation: normal. 09/16 00:41 ED course: Patient wants to leave prior to any results. Patient left home with family. pm1 09/15 23:00 Order name: Dilantin pm1 09/15 23:00 Order name: CBC with Diff pm1 09/15 23:00 Order name: CMP pm1 09/15 23:01 Order name: Phenytoin (Dilantin) Level EDMS 09/15 23:01 Order name: CBC with Automated Diff EDMS 09/15 23:00 Order name: IV Saline Lock; Complete Time: 23:03 pm1 09/15 23:03 Order name: EKG; Complete Time: 23:04 pm1 09/15 23:03 Order name: EKG - Nurse/Tech; Complete Time: 00:26 pm1 Administered Medications: 00:52 Not Given (Patient Refused): Ketorolac 30 mg IVP once jb4 Disposition: 07:27 Co-signature as Attending Physician, Samir Carter MD. [email or web address] Disposition Summary: 09/16/20 00:41 Left Against Medical Advice Location: Home pm1 Problem: new pm1 Symptoms: have improved pm1 Condition: Stable pm1 Diagnosis - Other seizures pm1 Followup: pm1 - With: Emergency Department - When: As needed - Reason: Worsening of condition Followup: pm1 - With: Private Physician - When: 2 - 3 days - Reason: Recheck today's complaints, Continuance of care, Re-evaluation by your physician Discharge Instructions: - Discharge Summary Sheet pm1 - Seizure, Adult pm1 Signatures: Dispatcher [employer] EDMS Ted Gu, LASHON [employer] MACHINE OFFBEARER pm1 Theodore Woods, JUAN M RN jb4 Samir Carter MD MD mh7
[2020-09-16 01:02] VITALS: TEMP 98.1; O2SAT 99
[2020-09-16 01:03] VITALS: BP 120/72
[2020-09-16 01:17] LABS: ALT/SGPT 24 U/L (12-78); AST/SGOT 20 U/L (15-37); Albumin 3.2 g/dL (3.4-5.0); Alkaline Phosphatase 71 U/L (45-117); BUN Blood Urea Nitrogen 6 mg/dL (7-18); Bicarbonate 32 mmol/L (21-32); Bilirubin Total 0.1 mg/dL (0.2-1.0); Glucose Level 92 mg/dL (74-106); Potassium 3.1 mmol/L (3.5-5.1); Protein, Total 6.4 g/dL (6.4-8.2); Sodium Level 144 mmol/L (136-145)
--- NOTE | 2020-09-17 16:10 | EKG ---
Test Date: 2020-09-16 Test Time: 00:20:05 Check And Transfer Beader: JOSELYN MEASUREMENT RESULTS: Intervals: Rate: 85 SC: 176 QRSD: 84 QT: 366 QTc: 435 [place]: P: 63 SC: 176 QRS: 95 T: 33 INTERPRETIVE STATEMENTS: Normal sinus rhythm Rightward axis Borderline ECG Compared to ECG 09/11/2020 11:08:38 Right-axis deviation now present Sinus tachycardia no longer present T-wave abnormality no longer present Electronically Signed On 09-17-20 16:04:38 CDT by Uday Bunch
== END 2020-09-16 00:57 | disposition left against medical advice (07) ==
LOC: ER 22:32
DX: G40.909 Epilepsy, unspecified, not intractable, without status epilepticus (principal); F31.9 Bipolar disorder, unspecified; Z88.1 Allergy status to other antibiotic agents; Z88.5 Allergy status to narcotic agent; Z88.8 Allergy status to other drugs, medicaments and biological substances
CPT/HCPCS: 36415; 80053; 80185; 85025; 93005; 99283

== ENCOUNTER 2020-09-16 13:48 | Emergency (ER) | payer OTHER ==
--- OUTSIDE RECORDS SUMMARY | 2020-09-16 13:51 | XMS REPORT | Continuity of Care Document ---
:1995 Author Organization [facility] t Address [address] [place] [address] Care Team Providers Name Role Phone Asked, [...] Start Date Stop Date Source Never smoker [place] Methodis t Medications This patient has no known medications. Procedures This patient has no known procedures. Plan of Care Planned Activity Planned Date Details Comments Source Future Scheduled 2020-10-07 INFLUENZA VACCINE Gamaliel velarde Taoist Test 00:00:00 [code = INFLUENZA VACCINE] Future Scheduled 2018 Screening for Jayden Jimenez thodist Test 00:00:00 malignant neoplasm of cervix (procedure) [code = 755047157] Future Scheduled 2015 Hepatitis C Jayden hodist Test 00:00:00 screening (procedure) [code = 982617322] Future Scheduled 2013 CHLAMYDIA SCREENING Kristine lopez Taoist Test 00:00:00 [code = CHLAMYDIA SCREENING] Future Scheduled 2009 COVID-19 VACCINE (1) Ricci pascual Taoist Test 00:00:00 [code = COVID-19 VACCINE (1)] Encounters Start End Encounter Admission Attending Care Care Encounter Source Date/Time Date/Time Type Type Clinicians Facility Department ID 2020-09-14 2020-09-15 Emergency Glenis, [place] [id number] 21:58:00 00:49:00 [facility] [id number] 2020-09-12 2020-09-13 Emergency [facility] [id number] 19:41:00 00:37:00 Yulia Foley [id number] [place] 4.2.7.2.686 [place] [id number] 2020-09-11 2020-09-11 Emergency [facility] [id number] 20:23:00 22:08:00 Wong Foley [id number] [place] [id number] [place] [id number] 2020-08-31 2020-08-31 [facility] Kwaku [facility] [id number] 11:19:00 13:58:00 Yulia Foley [id number] [place] 4.2.7.2.686 [place] [id number] 2020-08-29 2020-08-29 Emergency Kwaku [facility] [id number] 20:48:00 23:11:00 Yulia Foley [id number] [place] [id number] [place] [id number] 2020-06-07 2020-06-07 Office Akinjoanie, [facility] [id number] 10:50:31 11:18:03 Visit Enedina Estevez [employer] ADMINISTRATOR [id number] [facility] [id number] MATERNAL [id number] & CHILD [address] [place] [address] 2019-01-02 2019-01-02 Emergency [facility] [id number] 54 [place] 00:00:00 00:00:[address] Results This patient has no known results.
[2020-09-16 14:53] LABS: Absolute Lymphocytes (CBC) 2.8 K/uL (0.7-4.9); Basophils % 0.8 % (0-1.3); Hematocrit 34.8 % (36.0-45.0); Lymphocytes % 28.1 % (15.3-44.8); MPV 7.8 fL (7.6-11.3); RBC Red Blood Cell Count 4.02 M/uL (3.86-4.86)
[2020-09-16 15:09] LABS: ALT/SGPT 23 U/L (12-78); AST/SGOT 13 U/L (15-37); Albumin 3.1 g/dL (3.4-5.0); Alkaline Phosphatase 76 U/L (45-117); BUN Blood Urea Nitrogen 5 mg/dL (7-18); Bicarbonate 31 mmol/L (21-32); Bilirubin Total 0.2 mg/dL (0.2-1.0); Glucose Level 100 mg/dL (74-106); Phenytoin (Dilantin) Level 11.9 ug/mL (10.0-20.0); Potassium 3.4 mmol/L (3.5-5.1); Protein, Total 6.1 g/dL (6.4-8.2); Sodium Level 144 mmol/L (136-145)
--- NOTE | 2020-09-16 15:23 | RAD REPORT ---
EXAM DESCRIPTION: CT - Head C Spine Mpr Wo Con - 09/16/2020 3:01 pm CLINICAL HISTORY: Seizure. Head and neck injury status post fall. Head and neck pain COMPARISON: 2016 TECHNIQUE: Computed axial tomography of the head and cervical spine was obtained. Sagittal and coronal reconstruction was performed. All CT scans are performed using dose optimization technique as appropriate and may include automated exposure control or mA/KV adjustment according to patient size. FINDINGS: An intracranial bleed is not seen. The ventricles are normal in caliber. An extra-axial fl uid collection is not noted.Fluid within the visualized sinuses and mastoids is not seen A cervical fracture is not visualized. No dislocation is noted. IMPRESSION: No acute intracranial abnormality is seen. A cervical fracture is not visualized. If the patient continues to have symptoms to suggest intracra nial /spinal cord pathology then MRI would be recommended
[2020-09-16] MEDS ORDERED: NA CHLORIDE 0.9% 1,000 ML ONE (15:32)
--- NOTE | 2020-09-16 16:15 | ER ---
Nurse's Notes [facility] Name: Mile Wang Age: 25 yrs Sex: Female : 1995 Arrival Date: 09/16/2020 Time: 13:51 Bed 17 Private MD: Diagnosis: Other seizures Presentation: 09/16 13:46 Chief complaint: EMS states: Pt had a seizure, time unknown. [place] [facility] [place] friend. EMS administered Versed 5 mg IVP x once. Tachycardia, BP 111 systolic. 13:46 Coronavirus screen: At this time, the client does not indicate any symptoms associated [facility] with coronavirus-19. Ebola Screen: Patient denies travel to an Ebola-affected area in the 21 days before illness onset. Initial Sepsis Screen:. Risk Assessment: Do you want to hurt yourself or someone else? Patient reports no desire to harm self or others. Onset of symptoms was September 16, 2020. 13:46 Method Of Arrival: EMS: [facility] rb3 13:46 Acuity: BAIRON 3 rb3 15:17 Initial Sepsis Screen: Does the patient meet any 2 criteria? No. Patient's initial ap3 sepsis screen is negative. Does the patient have a suspected source of infection? No. Patient's initial sepsis screen is negative. Triage Assessment: 13:46 General: Appears in no apparent distress. Behavior is calm, cooperative. Neuro: Level rb3 of Consciousness is awake, alert, drowsy from Versed. Oriented to person, place, time. Cardiovascular: Patient's skin is warm and dry. Respiratory: Airway is patent Respiratory effort is even, unlabored, Respiratory pattern is regular, symmetrical. Musculoskeletal: Range of motion: intact in all extremities. 15:18 Pain: Denies pain. ap3 Historical: - Allergies: 13:46 Doxycycline; rb3 13:46 tramadol; rb3 13:46 Vimpat; rb3 - Home Meds: 13:46 benzonatate Oral [Active]; buspirone 5 mg Oral tab 1 tab 2 times per day [Active]; rb3 Carbamazepine Oral [Active]; Topamax Oral [Active]; Prednisone Oral [Active]; Zofran Oral [Active]; [place] Carbonate Oral [Active]; Dilantin Oral [Active]; Ibuprofen Oral [Active]; benzonatate oral [Active]; 15:18 Venpat [Active]; Vimpat Oral [Active]; ap3 - PMHx: 13:46 Anxiety; Bipolar disorder; Psychogenic Seizures; Seizures; rb3 - Immunization history:: Adult Immunizations up to date. - Social history:: Smoking status: Patient/guardian denies using. Screenin:46 Abuse screen: Denies threats or abuse. Nutritional screening: No deficits noted. rb3 Tuberculosis screening: No symptoms or risk factors identified. Fall Risk Fall in past 12 months (25 points). Secondary diagnosis (15 points) seizures, IV access (20 points). Ambulatory Aid- None/Bed Rest/Nurse Assist (0 pts). Gait- Normal/Bed Rest/Wheelchair (0 pts) Mental Status- Oriented to own ability (0 pts). Total Catalan Fall Scale indicates High Risk Score (45 or more points). Fall prevention measures have been instituted. Side Rails Up X 2 Placed Close to Nursing Station 1:1 Attendant Assigned Frequent Obs/Assessments Occuring As available patient and family educated on Fall Prevention Program and Strategies. Assessment: 13:46 Reassessment: See triage assessment. rb3 14:30 Reassessment: Patient appears in no apparent distress at this time. Patient and/or rb3 family updated on plan of care and expected duration. Pain level reassessed. Patient is alert, oriented x 3, equal unlabored respirations, skin warm/dry/pink. 15:26 General: patient on phone with family member. patient is crying and stating she doesn't ap3 want to be here. Nurse called to room. Patient removed IV. Nurse cleaned up the IV insertion site and placed a pressure dressing. Catheter was intact. Provider notified. . 16:13 Reassessment: Patient appears in no apparent distress at this time. No changes from rb3 previously documented assessment. Vital Signs: 13:46 BP 130 / 77; Pulse 107; Resp 19; Pulse Ox 96% on R/A; Weight 74.84 kg; Height 5 ft. 4 rb3 in. (162.56 cm); 15:07 BP 130 / 106; Pulse 104; Resp 17; Pulse Ox 98% on R/A; ap3 16:09 BP 131 / 82; Pulse 94; Resp 19; Pulse Ox 99% on R/A; ap3 13:46 Body Mass Index 28.32 (74.84 kg, 162.56 cm) rb3 [place] Score: 13:46 Eye Response: spontaneous(4). Verbal Response: oriented(5). Motor Response: obeys rb3 commands(6). Total: 15. ED Course: 13:46 Arm band placed on right wrist. rb3 13:46 Patient has correct armband on for positive identification. Bed in low position. Call rb3 light in reach. Side rails up X2. Seizure precautions initiated. Pulse ox on. NIBP on. Warm blanket given. 13:46 Maintain EMS IV. Dressing intact. Good blood return noted. Site clean \T\ dry. Gauge \T\ rb 3 site: 20 G L Hand. 13:51 Patient arrived in ED. rb3 13:54 Triage completed. rb3 14:16 Ted Gu NP is PHCP. pm1 14:16 Luis Ceron MD is Attending Physician. pm1 15:00 CT Head C Spine In Process Unspecified. EDMS 15:42 Nay Alonso, JUAN M is Primary Nurse. rb3 16:15 Reese Chen MD is Referral Physician. pm1 16:24 No provider procedures requiring assistance completed. intact, bleeding controlled, No ap3 redness/swelling at site. Pressure dressing applied. Administered Medications: 15:17 Drug: NS 0.9% 1000 ml Route: IV; Rate: 1000 ml; Site: left hand; ap3 16:25 Follow up: IV Status: Completed infusion ap3 Outcome: 16:15 Discharge ordered by MD. pm1 16:24 Discharged to home ambulatory. ap3 16:24 Condition: good 16:24 Discharge instructions given to patient, Instructed on discharge instructions, follow up and referral plans. Demonstrated understanding of instructions, follow-up care. 16:25 Patient left the ED. ap3 Signatures: Dispatcher [employer] EDMS Ted Gu NP UI ENGINEER pm1 Candy Webber RN RN ap3 Nay Alonso RN RN rb3 Corrections: (The following items were deleted from the chart) 14:00 13:46 BP 130 / 77; Pulse 107bpm; Resp 19bpm; Pulse Ox 96% RA; rb3 rb3
--- NOTE | 2020-09-16 16:16 | EDPHYS ---
Physician Documentation [facility] Name: Mile Wang Age: 25 yrs Sex: Female : 1995 Arrival Date: 09/16/2020 Time: 13:51 Bed 17 Private MD: ED Physician Luis Ceron HPI: 09/16 14:28 This 25 yrs old Female presents to ER via EMS with complaints of Seizure. pm1 14:28 The patient presents after having a possible seizure episode. Character of seizure(s): pm1 unknown. Seizure onset: just prior to arrival. Context: the seizure(s) was witnessed, by no one, occurred outdoors, Contributing factors: unknown. Seizure Hx: Last seizure: The patient's last seizure was approximately 1 day(s) ago, Seizure medications: phenytoin. Associated injury: The patient did not suffer any apparent associated injury. EMS care: versed, IV, 5 mg(s). Current symptoms: sleepiness. The patient has experienced similar episodes in the past, multiple times. The patient has been recently seen at the [facility] Emergency Department, yesterday, for similar complaints. Historical: - Allergies: 13:46 Doxycycline; rb3 13:46 tramadol; rb3 13:46 Vimpat; rb3 - Home Meds: 13:46 benzonatate Oral [Active]; buspirone 5 mg Oral tab 1 tab 2 times per day [Active]; rb3 Carbamazepine Oral [Active]; Topamax Oral [Active]; Prednisone Oral [Active]; Zofran Oral [Active]; [place] Carbonate Oral [Active]; Dilantin Oral [Active]; Ibuprofen Oral [Active]; benzonatate oral [Active]; 15:18 Venpat [Active]; Vimpat Oral [Active]; ap3 - PMHx: 13:46 Anxiety; Bipolar disorder; Psychogenic Seizures; Seizures; rb3 - Immunization history:: Adult Immunizations up to date. - Social history:: Smoking status: Patient/guardian denies using. ROS: 14:28 Constitutional: Negative for fever, chills, and weight loss, Neck: Negative for injury, pm1 pain, and swelling, Cardiovascular: Negative for chest pain, palpitations, and edema, Respiratory: Negative for shortness of breath, cough, wheezing, and pleuritic chest pain, Abdomen/GI: Negative for abdominal pain, nausea, vomiting, diarrhea, and constipation, Back: Negative for injury and pain, MS/Extremity: Negative for injury and deformity, Skin: Negative for injury, rash, and discoloration. 14:28 Neuro: Positive for seizure activity, Negative for headache, numbness, tingling, weakness. 14:28 All other systems are negative. Exam: 14:28 Constitutional: This is a well developed, well nourished patient who is awake, alert, pm1 and in no acute distress. Head/Face: Normocephalic, atraumatic. 14:28 Neck: Trachea midline, no thyromegaly or masses palpated, and no cervical lymphadenopathy. Supple, full range of motion without nuchal rigidity, or vertebral point tenderness. No Meningismus. 14:28 Back: No spinal tenderness. No costovertebral tenderness. Full range of motion. Skin: Warm, dry with normal turgor. Normal color with no rashes, no lesions, and no evidence of cellulitis. MS/ Extremity: Pulses equal, no cyanosis. Neurovascular intact. Full, normal range of motion. 14:28 Eyes: Exam is negative for acute changes, Periorbital structures: appear normal, Pupils: no acute changes, normal size, normal reaction to light, Extraocular movements: intact throughout, Conjunctiva: no acute changes, no injection, Sclera: no acute changes, icterus, is not appreciated. 14:28 ENT: Mouth: Lips: normal, Oral mucosa: normal, pink and intact, moist. 14:28 Cardiovascular: Exam negative for acute changes, Rate: tachycardic, Rhythm: regular, Pulses: no pulse deficits are appreciated. 14:28 Respiratory: Exam negative for acute changes, respiratory distress, shortness of breath, Breath sounds: are clear throughout. 14:28 Abdomen/GI: Inspection: obese Palpation: abdomen is soft and non-tender, in all quadrants. 14:28 Neuro: Exam negative for acute changes, Orientation: is normal, Mentation: is normal, Motor: moves all fours. Vital Signs: 13:46 BP 130 / 77; Pulse 107; Resp 19; Pulse Ox 96% on R/A; Weight 74.84 kg; Height 5 ft. 4 rb3 in. (162.56 cm); 15:07 BP 130 / 106; Pulse 104; Resp 17; Pulse Ox 98% on R/A; ap3 16:09 BP 131 / 82; Pulse 94; Resp 19; Pulse Ox 99% on R/A; ap3 13:46 Body Mass Index 28.32 (74.84 kg, 162.56 cm) rb3 Cap[place] Coma Score: 13:46 Eye Response: spontaneous(4). Verbal Response: oriented(5). Motor Response: obeys rb3 commands(6). Total: 15. MDM: 14:26 Patient medically screened. pm1 16:12 ED course: Patient arguing and crying on the phone. She said she is ready to go home. pm1 Has appointment with Dr. Chen on 09/21 and has prolonged EEG scheduled afterwards. 16:14 Data reviewed: vital signs. Data interpreted: Pulse oximetry: on room air is 99 %. pm1 Interpretation: normal. 16:14 Counseling: I had a detailed discussion with the patient and/or guardian regarding: the pm1 historical points, exam findings, and any diagnostic results supporting the discharge/admit diagnosis, lab results, radiology results, the need for outpatient follow up, a neurologist, to return to the emergency department if symptoms worsen or persist or if there are any questions or concerns that arise at home. 09/16 14:27 Order name: Dilantin; Complete Time: 15:19 pm1 09/16 14:27 Order name: CBC with Diff; Complete Time: 15:19 pm1 09/16 14:27 Order name: CT Head C Spine; Complete Time: 15:38 pm1 09/16 14:27 Order name: CMP; Complete Time: 15:19 pm1 09/16 14:28 Order name: EKG; Complete Time: 14:29 pm1 09/16 14:27 Order name: IV Saline Lock; Complete Time: 15:09 pm1 09/16 14:28 Order name: EKG - Nurse/Tech; Complete Time: 15:52 pm1 Administered Medications: 15:17 Drug: NS 0.9% 1000 ml Route: IV; Rate: 1000 ml; Site: left hand; ap3 16:25 Follow up: IV Status: Completed infusion ap3 Disposition Summary: 09/16/20 16:15 Discharge Ordered Location: Home pm1 Problem: new pm1 Symptoms: have improved pm1 Condition: Stable pm1 Diagnosis - Other seizures pm1 Followup: pm1 - With: Emergency Department - When: As needed - Reason: Worsening of condition Followup: pm1 - With: Reese Chen MD - When: 2 - 3 days - Reason: Recheck today's complaints, Continuance of care, Re-evaluation by your physician Discharge Instructions: - Discharge Summary Sheet pm1 - Seizure, Adult pm1 Forms: - Medication Reconciliation Form pm1 - Thank You Letter pm1 - Antibiotic Education pm1 - Prescription Opioid Use pm1 Signatures: Dispatcher [employer] EDTed Lares, LASHON STORY READER pm1 Candy Webber, RN RN ap3 Nay Alonso RN RN rb3
[2020-09-16 16:30] VITALS: BP 131/82; O2SAT 99
--- NOTE | 2020-09-17 16:08 | EKG ---
Test Date: 2020-09-16 Test Time: 15:15:06 Heel Caser: RADHA MEASUREMENT RESULTS: Intervals: Rate: 102 IA: 188 QRSD: 78 QT: 338 QTc: 440 [place]: P: 28 IA: 188 QRS: 100 T: 4 INTERPRETIVE STATEMENTS: Sinus tachycardia Rightward axis Nonspecific T wave abnormality Abnormal ECG Compared to ECG 09/16/2020 00:20:05 T-wave abnormality now present Sinus rhythm no longer present Electronically Signed On 09-17-20 16:04:21 CDT by Uday Bunch
== END 2020-09-16 16:25 | disposition home or self-care (01) ==
LOC: ER 13:48
DX: G40.909 Epilepsy, unspecified, not intractable, without status epilepticus (principal); F31.9 Bipolar disorder, unspecified; Z88.1 Allergy status to other antibiotic agents; Z88.5 Allergy status to narcotic agent; Z88.8 Allergy status to other drugs, medicaments and biological substances
CPT/HCPCS: 93005; 85025; 36415; 80185; 80053; 70450; 72125; 96360; 99284; J7030

== ENCOUNTER 2020-09-20 20:57 | Emergency (ER) | payer OTHER ==
--- OUTSIDE RECORDS SUMMARY | 2020-09-20 21:00 | XMS REPORT | Continuity of Care Document ---
:1995 Author Organization [facility] t Address [address] [place] [address] Care Team Providers Name Role Phone Asked, [...] Start Date Stop Date Source Never smoker Caret Methodis t Medications This patient has no known medications. Procedures This patient has no known procedures. Plan of Care Planned Activity Planned Date Details Comments Source Future Scheduled 2020-10-07 INFLUENZA VACCINE Gamaliel velarde Bahai Test 00:00:00 [code = INFLUENZA VACCINE] Future Scheduled 2018 Screening for Jayden Jimenez [facility] Test 00:00:00 malignant neoplasm of cervix (procedure) [code = 735032498] Future Scheduled 2015 Hepatitis C Jayden hodist Test 00:00:00 screening (procedure) [code = 741330847] Future Scheduled 2013 CHLAMYDIA SCREENING Kristine lopez Bahai Test 00:00:00 [code = CHLAMYDIA SCREENING] Future Scheduled 2009 COVID-19 VACCINE (1) Ricci pascual Bahai Test 00:00:00 [code = COVID-19 VACCINE (1)] Encounters Start End Encounter Admission Attending Care Care Encounter Source Date/Time Date/Time Type Type Clinicians Facility Department ID 2020-09-14 2020-09-15 Emergency [place], [place] [id number] 21:58:00 00:49:00 [facility] [id number] 2020-09-12 2020-09-13 Emergency [facility] [id number] 19:41:00 00:37:00 Yulia Foley [id number] [place] [id number] [place] [id number] 2020-09-11 2020-09-11 Emergency [facility] [id number] 20:23:00 22:08:00 Wong Foley [id number] [place] [id number] [place] [id number] 2020-08-31 2020-08-31 [facility] Kwaku [facility] [id number] 11:19:00 13:58:00 Yulia Foley [id number] [place] [id number] [place] [id number] 2020-08-29 2020-08-29 Emergency Kwaku [facility] [id number] 20:48:00 23:11:00 Yulia Foley [id number] [place] [id number] [place] [id number] 2020-06-07 2020-06-07 Office [place], [facility] [id number] 10:50:31 11:18:03 Visit Enedina Estevez [employer] [id number] [facility] [id number] MATERNAL [id number] & CHILD [address] [place] [address] 2019-01-02 2019-01-02 Emergency [facility] [id number] Caret 00:00:00 00:00:[address] Results This patient has no known results.
[2020-09-20 21:43] LABS: Urine Blood Negative (Negative); Urine Glucose Negative (Negative); Urine Protein Negative (Negative); Urine Specific Gravity 1.015 (1.005-1.030)
[2020-09-20 21:55] LABS: Urine Specific Gravity/Preg 1.015 (1.005-1.030)
[2020-09-20 22:03] LABS: Absolute Lymphocytes (CBC) 2.9 K/uL (0.7-4.9); Basophils % 0.3 % (0-1.3); Hematocrit 38.3 % (36.0-45.0); MPV 7.2 fL (7.6-11.3); RBC Red Blood Cell Count 4.36 M/uL (3.86-4.86)
[2020-09-20 22:12] LABS: ALT/SGPT 148 U/L (12-78); AST/SGOT 281 U/L (15-37); Albumin 3.7 g/dL (3.4-5.0); Alkaline Phosphatase 164 U/L (45-117); BUN Blood Urea Nitrogen 15 mg/dL (7-18); Bicarbonate 29 mmol/L (21-32); Bilirubin Direct 0.2 mg/dL (0-0.2); Bilirubin Total 0.3 mg/dL (0.2-1.0); Glucose Level 91 mg/dL (74-106); Lipase 81 U/L (73-393); Potassium 3.7 mmol/L (3.5-5.1); Protein, Total 7.3 g/dL (6.4-8.2); Sodium Level 141 mmol/L (136-145)
[2020-09-20 23:00] LABS: Blood Morphology Comment NOT SEEN (NOT SEEN); Platelet Estimate ADEQ
[2020-09-20] MEDS ORDERED: NA CHLORIDE 0.9% 1,000 ML ONE (23:20)
[2020-09-21] MEDS ORDERED: CEFTRIAXONE/SWI 1gm 1 GM/10 ML SYR ONE (01:02)
--- NOTE | 2020-09-21 01:05 | EDPHYS ---
Physician Documentation [facility] Name: Mile Wang Age: 25 yrs Sex: Female : 1995 Arrival Date: 09/20/2020 Time: 20:59 Bed 5 Private MD: ED Physician Ton Bond HPI: 09/20 22:44 This 25 yrs old Female presents to ER via Ambulatory with complaints of mh7 Abdominal Pain. 22:44 The patient presents with abdominal pain right lower quadrant. Onset: The mh7 symptoms/episode began/occurred just prior to arrival, today. The symptoms radiate to the right flank. Associated signs and symptoms: Pertinent negatives: nausea, vomiting, and diarrhea, anorexia, blood in stools, chest pain, constipation, diarrhea, dysuria, fever, headache, hematuria, nausea, palpitations, shortness of breath, vaginal discharge, vomiting, vomiting blood. The symptoms are described as intermittent, sharp, waxing/waning. Modifying factors: The symptoms are alleviated by nothing, the symptoms are aggravated by nothing. Severity of pain: At its worst the pain was moderate today, in the emergency department the pain has resolved and did so while in waiting room. POLYSOM TECH: 21:25 LMP 08/29/2020 bb Historical: - Allergies: 21:24 Vimpat; bb 21:24 tramadol; bb 21:24 Doxycycline; bb - Home Meds: 21:24 [place] Carbonate Oral [Active]; buspirone 5 mg Oral tab 1 tab 2 times per day [Active];bb - PMHx: 21:24 Anxiety; Psychogenic Seizures; Bipolar disorder; Seizures; bb 21:27 stent in gallbladder; bb - PSHx: 21:24 Tonsillectomy; Cholecystectomy; bb - Immunization history:: Adult Immunizations not up to date, Client reports having NOT received the Covid vaccine. - Social history:: Smoking status: Patient denies any tobacco usage or history of. ROS: 22:44 Constitutional: Negative for fever, chills, and weight loss, Eyes: Negative for injury, mh7 pain, redness, and discharge, ENT: Negative for injury, pain, and discharge, Neck: Negative for injury, pain, and swelling, Cardiovascular: Negative for chest pain, palpitations, and edema, Respiratory: Negative for shortness of breath, cough, wheezing, and pleuritic chest pain, : Negative for injury, bleeding, discharge, and swelling, MS/Extremity: Negative for injury and deformity, Skin: Negative for injury, rash, and discoloration, Neuro: Negative for headache, weakness, numbness, tingling, and seizure, Psych: Negative for depression, anxiety, suicide ideation, homicidal ideation, and hallucinations, Allergy/Immunology: Negative for hives, rash, and allergies, Endocrine: Negative for neck swelling, polydipsia, polyuria, polyphagia, and marked weight changes, Hematologic/Lymphatic: Negative for swollen nodes, abnormal bleeding, and unusual bruising. Exam: 22:44 Constitutional: This is a well developed, well nourished patient who is awake, alert, mh7 and in no acute distress. Head/Face: Normocephalic, atraumatic. Eyes: Pupils equal round and reactive to light, extra-ocular motions intact. Lids and lashes normal. Conjunctiva and sclera are non-icteric and not injected. Cornea within normal limits. Periorbital areas with no swelling, redness, or edema. Neck: Trachea midline, no thyromegaly or masses palpated, and no cervical lymphadenopathy. Supple, full range of motion without nuchal rigidity, or vertebral point tenderness. No Meningismus. Chest/axilla: Normal chest wall appearance and motion. Nontender with no deformity. No lesions are appreciated. Cardiovascular: Regular rate and rhythm with a normal S1 and S2. No gallops, murmurs, or rubs. Normal PMI, no JVD. No pulse deficits. Respiratory: Lungs have equal breath sounds bilaterally, clear to auscultation and percussion. No rales, rhonchi or wheezes noted. No increased work of breathing, no retractions or nasal flaring. Abdomen/GI: Soft, non-tender, with normal bowel sounds. No distension or tympany. No guarding or rebound. No evidence of tenderness throughout. Back: No spinal tenderness. No costovertebral tenderness. Full range of motion. Skin: Warm, dry with normal turgor. Normal color with no rashes, no lesions, and no evidence of cellulitis. MS/ Extremity: Pulses equal, no cyanosis. Neurovascular intact. Full, normal range of motion. Neuro: Awake and alert, GCS 15, oriented to person, place, time, and situation. Cranial nerves II-XII grossly intact. Motor strength 5/5 in all extremities. Sensory grossly intact. Cerebellar exam normal. Normal gait. Psych: Awake, alert, with orientation to person, place and time. Behavior, mood, and affect are within normal limits. Vital Signs: 21:19 BP 137 / 83; Pulse 98; Resp 20; Temp 98.88(O); Pulse Ox 100% on R/A; Weight 81.01 kg bb (R); Height 5 ft. 3 in. (160.02 cm) (R); Pain 10/10; 09/21 01:50 BP 132 / 62; Pulse 88; Resp 18; Pulse Ox 98% ; ea 07:34 Pulse 65; Resp 18 S; Pulse Ox 99% on R/A; jd3 13:00 Pulse 67; Resp 17 S; Pulse Ox 99% on R/A; jd3 17:46 BP 129 / 68; Pulse 65; Resp 17 S; Pulse Ox 99% on R/A; jd3 09/20 21:19 Body Mass Index 31.64 (81.01 kg, 160.02 cm) MDM: 01:01 Differential diagnosis: appendicitis, bowel obstruction, diverticulitis, 7 gastroesophageal reflux disease, non-specific abd pain, Pyelonephritis, Ureterolithiasis, urinary tract infection. Data reviewed: vital signs, nurses notes, old medical records, lab test result(s), CBC, electrolytes, urinalysis, radiologic studies, CT scan. Data interpreted: Pulse oximetry: on room air is 100 %. Interpretation: normal. Counseling: I had a detailed discussion with the patient and/or guardian regarding: the historical points, exam findings, and any diagnostic results supporting the discharge/admit diagnosis, lab results, radiology results, the need for further work-up and treatment in the hospital. Response to treatment: the patient's symptoms have markedly improved after treatment. 01:04 Patient medically screened. [facility] 09/20 21:33 Order name: Basic Metabolic Panel; Complete Time: 22:42 09/20 21:33 Order name: CBC with Diff; Complete Time: 23:37 09/20 21:33 Order name: Hepatic Function; Complete Time: 22:42 09/20 21:33 Order name: Lipase; Complete Time: 22:42 09/20 21:42 Order name: Urine --Ancillary (enter results) [facility] 09/20 21:42 Order name: Urine Dipstick-Ancillary; Complete Time: 22:42 [facility] 09/20 21:42 Order name: Urine --Ancillary; Complete Time: 22:42 [facility] 09/20 22:11 Order name: Manual Differential; Complete Time: 23:37 [facility] 09/20 22:43 Order name: UA MICROSCOPIC; Complete Time: 07:11 [facility] 09/20 22:43 Order name: Urine Culture [facility] 09/21 02:05 Order name: CBC with Automated Diff; Complete Time: 07:11 [facility] 09/21 02:05 Order name: Comprehensive Metabolic Panel; Complete Time: 07:11 [facility] 09/21 02:05 Order name: Urine Drug Screen; Complete Time: 07:11 [facility] 09/20 21:33 Order name: IV Saline Lock; Complete Time: 21:33 09/20 21:33 Order name: Labs collected and sent; Complete Time: 21:34 09/20 21:42 Order name: Urine Dipstick-Ancillary (obtain specimen); Complete Time: 21:42 [facility] 09/20 22:42 Order name: CT Abd/Pelvis - IV Contrast Only; Complete Time: 16:20 [facility] 09/21 02:05 Order name: Abdomen Exam Limited; Complete Time: 08:36 [facility] 09/21 02:05 Order name: Acetaminophen Level; Complete Time: 07:11 [facility] 09/21 02:05 Order name: Hepatitis Panel,Acute [facility] 09/21 06:35 Order name: SARS-COV-2 RT PCR; Complete Time: 07:11 [facility] 09/20 21:42 Order name: Urine Test (obtain specimen); Complete Time: 21:42 tt3 Administered Medications: 09/20 23:12 Drug: NS 0.9% 1000 ml Route: IV; Rate: 1000 ml; Site: right forearm; ea 09/21 01:00 Follow up: Response: No adverse reaction; IV Status: Completed infusion; IV Intake: ea 1000ml 00:45 Drug: Rocephin (cefTRIAXone) 1 grams Route: IV; Rate: per protocol; Site: right ea antecubital; 01:51 Follow up: Response: No adverse reaction; IV Status: Completed infusion ea 01:10 Drug: Zofran (Ondansetron) 4 mg Route: IVP; Site: right forearm; ea 01:51 Follow up: Response: No adverse reaction ea 03:43 Drug: NS 0.9% 1000 ml Route: IV; Rate: 100 ml/hr; Site: right antecubital; ea 17:46 Follow up: Response: No adverse reaction; IV Status: Completed infusion jd3 10:45 Drug: Zofran (Ondansetron) 4 mg Route: IVP; Site: right antecubital; jd3 11:45 Follow up: Response: No adverse reaction jd3 11:18 CANCELLED (Duplicate Order): Zofran (Ondansetron) 4 mg IVP once; over 2 minutes jd3 Disposition Summary: 09/21/20 16:33 Transfer Ordered Transfer Location: [facility] kdr Reason: Higher level of care kdr Condition: Fair(09/21/20 16:33) kdr Problem: an acute exacerbation(09/21/20 16:33) kdr Symptoms: have improved(09/21/20 16:33) kdr Accepting Physician: GI/Hsp Med: Dago(09/21/20 18:11) jd3 Diagnosis - Upper abdominal pain, unspecified kdr - Elevated Liver Enzymes kdr Forms: - Medication Reconciliation Form kdr - SBAR form kdr Signatures: Dispatcher [employer] EDMS Ton Bond MD MD kdr Radha Miller RN RN Baljeet Banerjee PA PA jr8 Slime Haywood RN RN ea Davies, Jonathon, RN RN jSamir Umana MD MD 7 Panchito Snyder 3 Jaycob Mosley PA PA ej Corrections: (The following items were deleted from the chart) 02:09 02:04 Acetaminophen Level ordered. EDMS EDMS 02:09 02:05 Hepatitis Panel,Acute ordered. EDMS EDMS 05:21 04:23 CORONAVIRUS+MR.LAB.BRZ ordered. EDMS EDMS 11:18 11:16 Zofran (Ondansetron) 4 mg IVP once; over 2 minutes ordered. jd3 jd3 11:18 11:17 Zofran (Ondansetron) 4 mg IVP once; over 2 minutes given. jd3 jd3 11:18 11:18 Zofran (Ondansetron) 4 mg IVP once; over 2 minutes ordered. jd3 jd3 16:31 01:04 Observation mh7 kdr 16:31 01:04 Shahid Graham mh7 kdr 16:31 01:04 Telemetry/MedSurg (observation) mh7 kdr 16:31 01:04 Stable mh7 kdr 16:31 01:04 new mh7 kdr 16:31 01:04 have improved mh7 kdr 16:31 01:04 Standard mh7 kdr 16:31 01:04 mh7 kdr 16:31 01:04 Elevated Liver Enzymes mh7 kdr 16:31 01:04 Abdominal Pain mh7 kdr 16:31 01:04 Nausea mh7 kdr 16:31 01:04 UTI mh7 kdr 16:54 16:33 GI/Hsp Med kdr kdr 18:11 16:54 GI/Hsp Med: Bhattari kdr jd3
--- NOTE | 2020-09-21 01:05 | ER ---
Nurse's Notes [facility] Name: Mile Wang Age: 25 yrs Sex: Female : 1995 Arrival Date: 09/20/2020 Time: 20:59 Bed 5 Private MD: Diagnosis: Upper abdominal pain, unspecified;Elevated Liver Enzymes Presentation: 09/20 21:19 Chief complaint: Patient states: Pt presents with abdominal pain that radiations to the bb right flank and back. Pt stated it started at 1900 when she was at the grocery store. Pt states her gallbladder was removed last month and was suppose to have stent removed the stent but I had COVID. Coronavirus screen: Client denies travel out of the [place] in the last 14 days. At this time, unable to obtain information related to travel outside the [place] At this time, the client does not indicate any symptoms associated with coronavirus-19. Ebola Screen: Patient negative for fever greater than or equal to 101.5 degrees Fahrenheit, and additional compatible Ebola Virus Disease symptoms Patient denies exposure to infectious person. Patient denies travel to an Ebola-affected area in the 21 days before illness onset. Initial Sepsis Screen: Does the patient meet any 2 criteria? No. Patient's initial sepsis screen is negative. Risk Assessment: Do you want to hurt yourself or someone else? Patient reports no desire to harm self or others. Onset of symptoms was September 20, 2020 at 19:00. 21:19 Method Of Arrival: Ambulatory 21:19 Acuity: BAIRON 3 21:26 Initial Sepsis Screen: Does the patient have a suspected source of infection? No. bb Patient's initial sepsis screen is negative. Triage Assessment: 21:22 General: Appears distressed, Behavior is cooperative, appropriate for age, restless. bb Pain: Complains of pain in right upper quadrant and right lower quadrant Pain radiates to Right flank, Right upper and lower back Pain currently is 10 out of 10 on a pain scale. at worst was 10 out of 10 on a pain scale. level that patient reports is acceptable is 5 out of 10 on a pain scale. Quality of pain is described as sharp, stabbing, throbbing, Pain began 2 hours ago. GI: Reports lower abdominal pain, upper abdominal pain, diarrhea. 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 - Social history:: Smoking status: Patient denies any tobacco usage or history of. Screenin:22 Abuse screen: Denies threats or abuse. Denies injuries from another. Nutritional bb screening: No deficits noted. Tuberculosis screening: No symptoms or risk factors identified. Fall Risk None identified. No fall in past 12 months (0 pts). No secondary diagnosis (0 pts). IV access (20 points). Ambulatory Aid- None/Bed Rest/Nurse Assist (0 pts). Gait- Normal/Bed Rest/Wheelchair (0 pts) Mental Status- Oriented to own ability (0 pts). Total Catalan Fall Scale indicates No Risk (0-24 pts). Assessment: 21:26 GI:. bb 22:59 General: Appears uncomfortable, Behavior is appropriate for age. Pain: Complains of ea pain in abdomen. Neuro: Level of Consciousness is awake, alert, obeys commands, Oriented to person, place, time. Respiratory: Airway is patent Respiratory effort is even, unlabored, Respiratory pattern is regular, symmetrical. Derm: Skin is pink, warm \T\ dry. 09/21 01:50 Reassessment: Patient and/or family updated on plan of care and expected duration. Pain ea level reassessed. Patient is alert, oriented x 3, equal unlabored respirations, skin warm/dry/pink. 07:00 Reassessment: awaiting orders for admission. Pain: Complains of pain in abdomen. Neuro: jd3 Level of Consciousness is awake, alert, obeys commands, Oriented to person, place, time, situation. Respiratory: Airway is patent Respiratory effort is even, unlabored, Respiratory pattern is regular, symmetrical. 07:00 Cardiovascular: Denies chest pain, Capillary refill < 3 seconds Patient's skin is warm jd3 and dry. GI: Abd is soft X 4 quads Abdomen is tender to palpation X 4 quads. Reports lower abdominal pain, upper abdominal pain. Derm: Skin is intact, Skin is dry, Skin is normal, Skin temperature is warm. 08:49 Reassessment: Patient appears in no apparent distress at this time. No changes from jd3 previously documented assessment. Patient and/or family updated on plan of care and expected duration. Pain level reassessed. Patient is alert, oriented x 3, equal unlabored respirations, skin warm/dry/pink. 09:30 Reassessment: Patient appears in no apparent distress at this time. No changes from jd3 previously documented assessment. Patient and/or family updated on plan of care and expected duration. Pain level reassessed. Patient is alert, oriented x 3, equal unlabored respirations, skin warm/dry/pink. 10:23 Reassessment: Patient appears in no apparent distress at this time. No changes from jd3 previously documented assessment. Patient and/or family updated on plan of care and expected duration. Pain level reassessed. Patient is alert, oriented x 3, equal unlabored respirations, skin warm/dry/pink. pt resting in bed with eyes closed, even and unlabored respirations. awaiting acceptance for transfer at this time. 10:45 Reassessment: pt requesting to take home medication. provider notified. Zofran given jd3 for nausea and pt took home medications with small cup of water. 11:15 Reassessment: Patient appears in no apparent distress at this time. Patient and/or jd3 family updated on plan of care and expected duration. Pain level reassessed. Patient is alert, oriented x 3, equal unlabored respirations, skin warm/dry/pink. awaiting acceptance for transfer. 12:00 Reassessment: Patient appears in no apparent distress at this time. No changes from jd3 previously documented assessment. Patient and/or family updated on plan of care and expected duration. Pain level reassessed. Patient is alert, oriented x 3, equal unlabored respirations, skin warm/dry/pink. 13:00 Reassessment: Patient appears in no apparent distress at this time. No changes from jd3 previously documented assessment. Patient and/or family updated on plan of care and expected duration. Pain level reassessed. Patient is alert, oriented x 3, equal unlabored respirations, skin warm/dry/pink. 14:00 Reassessment: Patient appears in no apparent distress at this time. Patient and/or jd3 family updated on plan of care and expected duration. Pain level reassessed. Patient is alert, oriented x 3, equal unlabored respirations, skin warm/dry/pink. resting in bed awaiting acceptance for transfer. 15:00 Reassessment: Patient appears in no apparent distress at this time. No changes from jd3 previously documented assessment. Patient and/or family updated on plan of care and expected duration. Pain level reassessed. Patient is alert, oriented x 3, equal unlabored respirations, skin warm/dry/pink. 16:25 Reassessment: Patient appears in no apparent distress at this time. Patient and/or jd3 family updated on plan of care and expected duration. Pain level reassessed. Patient is alert, oriented x 3, equal unlabored respirations, skin warm/dry/pink. pt moved to a hospital bed because of extended wait time. awaiting acceptance for transfer. 17:20 Reassessment: Patient appears in no apparent distress at this time. Patient and/or jd3 family updated on plan of care and expected duration. Pain level reassessed. Patient is alert, oriented x 3, equal unlabored respirations, skin warm/dry/pink. report attempt made. nurse unavailable to take report at [facility]. will try again. 17:45 Reassessment: Patient appears in no apparent distress at this time. Patient and/or jd3 family updated on plan of care and expected duration. Pain level reassessed. Patient is alert, oriented x 3, equal unlabored respirations, skin warm/dry/pink. report given to Radha MCGOWAN at [facility]. awaiting EMS for transfer. 18:08 Reassessment: Patient appears in no apparent distress at this time. Patient and/or jd3 family updated on plan of care and expected duration. Pain level reassessed. Patient is alert, oriented x 3, equal unlabored respirations, skin warm/dry/pink. report given to [facility] crew for transfer. Vital Signs: 09/20 21:19 BP 137 / 83; Pulse 98; Resp 20; Temp 98.88(O); Pulse Ox 100% on R/A; Weight 81.01 kg bb (R); Height 5 ft. 3 in. (160.02 cm) (R); Pain 10/10; 09/21 01:50 BP 132 / 62; Pulse 88; Resp 18; Pulse Ox 98% ; ea 07:34 Pulse 65; Resp 18 S; Pulse Ox 99% on R/A; jd3 13:00 Pulse 67; Resp 17 S; Pulse Ox 99% on R/A; jd3 17:46 BP 129 / 68; Pulse 65; Resp 17 S; Pulse Ox 99% on R/A; jd3 09/20 21:19 Body Mass Index 31.64 (81.01 kg, 160.02 cm) bb ED Course: 09/20 20:59 Patient arrived in ED. wm 21:22 Triage completed. bb 21:23 Arm band placed on right wrist. bb 21:26 Patient has correct armband on for positive identification. bb 21:30 Inserted saline lock: 20 gauge in right forearm, using aseptic technique. bb 22:30 Samir Carter MD is Attending Physician. [facility] 22:36 Slime Haywood RN is Primary Nurse. ea 23:15 CT Abd/Pelvis - IV Contrast Only In Process Unspecified. EDMS 09/21 01:02 Shahid Graham is Hospitalizing Provider. [facility] 01:47 No provider procedures requiring assistance completed. Patient admitted, IV remains in ea place. 05:18 Notified Nurse Practitioner and/or Physician Carpet Cutter of a critical lab result(s), AST bb 728, ALT 452. Jaycob LEE notified. 07:28 Abdomen Exam Limited In Process Unspecified. EDMS 16:12 Attending Physician role handed off by Samir Carter MD kdr 16:12 Ton Bond MD is Attending Physician. kdr 16:13 initiated a transfer with Glynn Rahman Rn from the [facility]. eb 16:21 connected the GI doctor validation specialist for [facility] with Dr. Bond for patient eb transfer consultation. 16:[address] Loza who is validation specialist for [facility] with Dr. ti Bond for patient transfer consultation. 17:07 administrative approval given by Glynn Rahman Rn/ patient has been accepted to [facility] Rm 938/ Dr. Duque has accepted the patient in transfer/ report to be called to [phone]. Administered Medications: 09/20 23:12 Drug: NS 0.9% 1000 ml Route: IV; Rate: 1000 ml; Site: right forearm; ea 09/21 01:00 Follow up: Response: No adverse reaction; IV Status: Completed infusion; IV Intake: ea 1000ml 00:45 Drug: Rocephin (cefTRIAXone) 1 grams Route: IV; Rate: per protocol; Site: right ea antecubital; 01:51 Follow up: Response: No adverse reaction; IV Status: Completed infusion ea 01:10 Drug: Zofran (Ondansetron) 4 mg Route: IVP; Site: right forearm; ea 01:51 Follow up: Response: No adverse reaction ea 03:43 Drug: NS 0.9% 1000 ml Route: IV; Rate: 100 ml/hr; Site: right antecubital; ea 17:46 Follow up: Response: No adverse reaction; IV Status: Completed infusion jd3 10:45 Drug: Zofran (Ondansetron) 4 mg Route: IVP; Site: right antecubital; jd3 11:45 Follow up: Response: No adverse reaction jd3 11:18 CANCELLED (Duplicate Order): Zofran (Ondansetron) 4 mg IVP once; over 2 minutes jd3 Intake: 01:00 IV: 1000ml; Total: 1000ml. ea Outcome: 01:04 Decision to Hospitalize by Provider. [facility] 01:47 Admitted to ER Hold. Please see [facility] for further documentation. ea 01:47 Condition: stable 01:47 Instructed on the need for admit, Demonstrated understanding of instructions. 16:33 ER care complete, transfer ordered by . kdr 18:11 Patient left the ED. jd3 Signatures: Dispatcher [employer] EDMS Ton Bond MD MD kdr Ballard, Brenda, RN RN bb Antunez, Elena, RN RN ea Davies, Jonathon, RN RN jd3 Botello, Elizabeth eb Holmes, Maurice, MD MD [facility] Minerva Gonzalez Corrections: (The following items were deleted from the chart) 11:18 10:45 Zofran (Ondansetron) 4 mg IVP in right antecubital jd3 jd3 15:04 15:00 Reassessment: Patient appears in no apparent distress at this time. Patient jd3 and/or family updated on plan of care and expected duration. Pain level reassessed. Patient is alert, oriented x 3, equal unlabored respirations, skin warm/dry/pink. jd3 17:47 17:45 Reassessment: Patient appears in no apparent distress at this time. Patient jd3 and/or family updated on plan of care and expected duration. Pain level reassessed. Patient is alert, oriented x 3, equal unlabored respirations, skin warm/dry/pink. report given to Radha MCGOWAN at [facility]. jd3
[2020-09-21] MEDS ORDERED: NA CHLORIDE 0.9% 1,000 ML ONE (03:56)
[2020-09-21 04:03] LABS: Barbiturates NEGATIVE (NEGATIVE); Benzodiazepines NEGATIVE (NEGATIVE); Cocaine NEGATIVE (NEGATIVE); METHAMPHETAM NEGATIVE (NEGATIVE); Methadone NEGATIVE (NEGATIVE); Opiates NEGATIVE (NEGATIVE); Phencyclidine NEGATIVE (NEGATIVE); THC Cannibis NEGATIVE (NEGATIVE)
[2020-09-21 04:36] LABS: Absolute Lymphocytes (CBC) 2.4 K/uL (0.7-4.9); Basophils % 0.3 % (0-1.3); Hematocrit 34.1 % (36.0-45.0); Lymphocytes % 22.5 % (15.3-44.8); MPV 7.7 fL (7.6-11.3)
[2020-09-21 04:37] LABS: Urine Bacteria <20 /HPF (<20); Urine RBC NONE SEEN /HPF (NONE SEEN)
[2020-09-21 05:09] LABS: Albumin 3.1 g/dL (3.4-5.0); Alkaline Phosphatase 155 U/L (45-117); BUN Blood Urea Nitrogen 12 mg/dL (7-18); Bicarbonate 25 mmol/L (21-32); Bilirubin Total 0.3 mg/dL (0.2-1.0); Glucose Level 89 mg/dL (74-106); Protein, Total 5.8 g/dL (6.4-8.2); Sodium Level 142 mmol/L (136-145)
[2020-09-21 05:13] LABS: ALT/SGPT 452 U/L (12-78); AST/SGOT 728 U/L (15-37)
--- NOTE | 2020-09-21 07:52 | RAD REPORT ---
EXAM DESCRIPTION: US - Abdomen Exam Limited - 09/21/2020 7:28 am CLINICAL HISTORY: biliary evaluation COMPARISON: Abdomen Pelvis W Contrast dated 09/20/2020; Cholangiogram dated 07/30/2020 FINDINGS: Cholecystectomy. The common bile duct measures 7 millimeters which is similar to . No filling defect to suggest a common bile duct stone ultrasound is limited for its detection. IMPRESSION: Cholecystectomy with similar borderline dilated common bile duct compared with the MRCP from 07/30/2020.
[2020-09-21] MEDS ORDERED: ONDANSETRON 4 MG/2 ML VIAL ONE (10:56)
--- NOTE | 2020-09-21 11:22 | RAD REPORT ---
EXAM DESCRIPTION: CTAbdomen Pelvis W Contrast - 09/21/2020 6:41 am CLINICAL HISTORY: The patient is 25 years old and is Female; Abd pain;Flank pain TECHNIQUE: Axial computed tomography images of the abdomen and pelvis with intravenous contrast. S agittal and coronal reformatted images were created and reviewed. This CT exam was performed using one or more of the following dose reduction techniques: automated exposure control, adjustment of t he mA and/or kV according to patient size, and/or use of iterative reconstruction technique. COMPARISON: CT chest abdomen pelvis September 01, 2020. FINDINGS: Lung bases: Unremarkable. No mass. No consolidation. ABDOMEN: Liver: Unremarkable. No mass. Gallbladder and bile ducts: Gallbladder is surgically absent. No ductal dilation. Pancreas: Unremarkable. No mass. No ductal dilation. Spleen: Unremarkable. No splenomegaly. Adrenals: Unremarkable. No mass. Kidneys and ureters: Unremarkable. No solid mass. No hydronephrosis. Stomach and bowel: Unremarkable. No obstruction. No mucosal thickening. PELVIS: Appendix: No findings to suggest acute appendicitis. Bladder: Unremarkable. No mass. Reproductive: Unremarkable as visualized. ABDOMEN and PELVIS: Intraperitoneal space: Unremarkable. No free air. No significant fluid collection. Bones/joints: No acute fracture. No dislocation. Soft tissues: Unremarkable. Vasculature: Unremarkable. No abdominal aortic aneurysm. Lymph nodes: Unremarkable. No enlarged lymph nodes. IMPRESSION: No acute findings in the abdomen or pelvis. Electronically signed by: Juan Canchola MD 09/20/2020 11:45 PM CDT Due to temporary technical issues with the PACS/Fluency reporting system, reports are being signed by the in house radiologist without review as a courtesy to ensure prompt reporting. The interpreting r adiologist is fully responsible for the content of the report.
[2020-09-21 18:31] VITALS: O2SAT 99
[2020-09-21 18:34] VITALS: BP 129/68
[2020-09-23 18:33] LABS: HBsAG Nonreactive (Nonreactive)
== END 2020-09-21 18:11 | disposition short-term general hospital (02) ==
LOC: ER 20:57
DX: R10.10 Upper abdominal pain, unspecified (principal); R74.8 Abnormal levels of other serum enzymes; Z20.822 Contact with and (suspected) exposure to COVID-19; F41.9 Anxiety disorder, unspecified; F31.9 Bipolar disorder, unspecified
CPT/HCPCS: 87088; 85025 ×2; 87086; 80048; 36415; 80329; 81025; 80076; 81003; 81015; 83690; 80053; 80307; 80074; 74177; 76705; 99285; U0003; Q9967; J0696; J7030 ×2; J2405

== ENCOUNTER 2020-09-26 20:54 | Emergency (ER) | payer OTHER ==
--- OUTSIDE RECORDS SUMMARY | 2020-09-26 20:58 | XMS REPORT | Continuity of Care Document ---
:1995 Author Organization [facility] t Address [address] [place] [address] Care Team Providers Name Role Phone Asked, Pcp Primary Care Physician Unavailable Only, Test Attending Clinician Unavailable TESHA Attending Clinician Unavailable Tesha TAYLOR Attending Clinician Pedrito TAYLOR Attending Clinician Zackary Ramos MD Attending Clinician Ameya Valero MD Attending Clinician Jose Whalen MD Attending Clinician PEDRITO Admitting Clinician Unavailable Payers Payer Name Policy Type Policy Effective Date Expiration Date Sour ce Number MEDICAID - MEDICAID [id number] AMANDA S t Lois MGD [place] - Medica l [facility] [id number] ctive for all datesMedicaid Contracted Problems Condition Condition Condition Status Onset Resolution Last Treating Co mments Source Name Details Category Date Date Treatment Clinician Date Abdominal Abdominal Disease Active [facility] Abnormal Abnormal Disease [facility] Allergies, Adverse Reactions, Alerts Allergy Allergy Status Severity Reaction(s) Onset Inactive Treating Comm ents Source Name Type Date Date Clinician Nitrofur Drug Active Anxiety [facility] Mon[facility]yd/ [facility] [place] Drug Active Hives [facility] 09[facility] Doxycycl Drug Active Hives, Rash seizures [facility] Allergy - [facility] Tramadol Drug Active Other (See seizures [facility] Comments[facility] Social History Social Habit Start Date Stop Date Quantity Comments Source History SDOH [facility] Alcohol Std Drinks [facility] History SDOH [facility] - Alcohol Binge Medical Zay ter Exposure to Not sure [facility] - SARS-CoV-2 (event) [facility] Alcohol intake 2020-09-24 2020-09-24 Ex-drinker [facility] (finding[facility] Center History SDOH 2020-09-21 2020-09-[address] [facility] - Alcohol Frequency 00:00:00 00:00:[address] [facility] Tobacco use and 2019-01-02 2019-01-02 Never used Jayden Gleason ethodist exposure 00:00:00 00:00:00 Sex Ass[birth year] At [birth year] [facility]ist 00:00:00 00:00:00 Smoking Status Start Date Stop Date Source Never smoker Carpenter Mayais Medications Ordered Filled Start Stop Current Ordering Indication Dosage Frequency Signature Comments Components Source Medication Medication Date Date Medication? Clinician (SIG) Name Name lithium 600 Yes bipolar 600mg QD Take [address] MG capsule 7-19 disorder in mg by L ukes - 17:56: remission mouth Medical 35 every Center morning . busPIRone Yes 10mg Q.5D Take [address] (BUSPAR) 10 7-19 by mouth 2 Pina kes - MG tablet 17:56: (two) Medical 35 times Center daily. lithium 300 Yes bipolar 900mg QD Take [address] MG capsule 7-15 disorder in mg by L ukes - 00:00: remission mouth Medical 00 nightly. Center ibuprofen 2020-0 2020- No 600mg Take [address] (ADVIL,MOTR 3- 07-16 mg by [facility] - [place]) 600 MG 00:00: 00:00 mouth. Medi tressa tablet 00 :00 Center Vital Signs Vital Name Observation Time Observation Value Comments Source Systolic blood 2020-09-24 13:45:00 114 mm[Hg] [facility] Diastolic blood 2020-09-24 13:45:00 64 mm[Hg] [facility] Heart rate 2020-09-24 13:45:00 58 /min [facility] Body temperature 2020-09-24 13:45:00 36.17 Shira [facility] Respiratory rate 2020-09-24 13:45:00 20 /min [facility] Oxygen saturation in 2020-09-24 13:45:00 98 /min [facility] Arterial blood by Medical Ce nter Pulse oximetry Body height 2020-09-22 06:00:[address] [facility] Body weight 2020-09-22 06:00:[address] [facility] BMI 2020-09-22 06:00:00 34.79 kg/m2 [facility] Procedures Procedure Date / Time Performed Performing Clinician [facility] e REPORT OF PROCEDURE - 2020-09-24 13:50:08 Darlene Whalen [facility] [place] ERCP 2020-09-24 13:05:00 Darlene Whalen [facility] ERCP,DIRECT VISUALIZATION 2020-09-24 12:24:00 Darlene Whalen am [facility] PROCEDURE W/ C-ARM 2020-09-24 12:24:00 Darlene Whalen [facility] ERCP,BALLOON SWEEPING 2020-09-24 12:24:00 Darlene Whalen [facility] POCT , URINE 2020-09-24 11:48:00 Darlene Whalen [facility] CBC (HEMOGRAM ONLY) 2020-09-24 05:38:00 Darshan Ramos [facility] COMPREHENSIVE METABOLIC 2020-09-24 05:38:[address] [facility] LITHIUM LEVEL 2020-09-23 12:19:[facility] COMPREHENSIVE METABOLIC 2020-09-23 06:11:[address] [facility] CBC (HEMOGRAM ONLY) 2020-09-23 06:10:00 [facility] CBC W/PLT COUNT & AUTO 2020-09-22 07:02:00 [facility] COMPREHENSIVE METABOLIC 2020-09-22 07:02:00 [facility] MAGNESIUM 2020-09-22 07:02:00 [facility] PROTHROMBIN TIME/INR 2020-09-22 07:02:00 [facility] Plan of Care Planned Activity Planned Date Details Comments Source Future Scheduled 2028-02-16 DTAP/TDAP/TD [facility] Test 00:[facility]:00 VACCINES (3 - Td) Medical Ce nter [code = DTAP/TDAP/TD VACCINES (3 - Td)] Future Scheduled 2020-11-[address] [facility] - Test 00:00:00 (#1) [code = [facility] INFLUENZA VACCINE (#1)] Future Scheduled 2020-10-07 INFLUENZA VACCINE [place] [facility] Test 00:00:00 [code = INFLUENZA VACCINE] Future Scheduled 2020-03-[address] [facility] - Test 00:00:00 (12+) [code = [facility] DEPRESSION SCREENING (12+)] Future Scheduled 2018 Screening for [facility] Test 00:00:00 malignant neoplasm of cervix (procedure) [code = 565005079] Future Scheduled [address] [facility] - Test 00:00:00 malignant neoplasm Medical C enter of cervix (procedure) [code = 729388023] Future Scheduled [address] [facility] - Test 00:00:00 (procedure) [code = [facility] 60466832] Future Scheduled 2015 Hepatitis C [facility] Test 00:00:00 screening (procedure) [code = 493509507] Future Scheduled [address] [facility] - Test 00:00:00 SCREENING [code = Medical Ce nter HEPATITIS C SCREENING] Future Scheduled 2013 CHLAMYDIA SCREENING [place] [facility] Test 00:00:00 [code = CHLAMYDIA SCREENING] Future Scheduled 2009 COVID-19 VACCINE (1) [facility] Test 00:00:00 [code = COVID-19 VACCINE (1)] Future Scheduled 2009 COVID-19 VACCINE (1) [facility] - Test 00:00:00 [code = COVID-[address] VACCINE (1)] Encounters Start End Encounter Admission Attending Care Care Encounter Source Date/Time Date/Time Type Type Clinicians Facility Department ID 2020-09-26 2020-09-26 [facility] Only[id number] 12:05:49 12:20:49 Only Test [facility] [id number] [place] [id number] [place] [id number] 2019-01-02 2019-01-02 Emergency [facility] [id number] [place] 00:00:00 00:00:[address] Results Test Description Test Time Test Comments Results Result Comments Source Donalds level 2020-09-24 18:22:00 Test Item Value Reference Range Interpretation Comme nts D[place]ds Level (test code = 07267-4) 0.8 mmol/L 0.8-1.2 Scan Result (test code = 1367030) See Scanned Report [facility] [id number] 18:22:00 Test Item Value Reference Range Interpretation Comments LITHIUM LEVEL (BEAKER) 0.8 mmol/L 0.8-1.2 (test code = 630) SCAN RESULT (test code = See Scanned Report [id number]) [place], [id number] 14:13:01Reason for exam:->[facility] 1995 Sex: FFluoroscopic unit utilized for a procedure performed in the OR. No interpretation was requested. Refer to the operative report for findings. Refer to PACS for patient radiation dose information.FL [id number] 13:05:00Interface, External Ris In - 09/25/2020 2:47 PM CDTFluoroscopic unit utilized for a procedure performed in the OR. No interpretation was requested. Refer to the operative report for findings. Referto PACS for patient radiation dose information.[facility]PO[facility] , [id number] 11:48:00 Test Item Value Reference Range Interpretation Comments Test Urine, POC (test Negative code = 2149623) Control line present?, POC (test Yes code = 5995425) Background clear?, POC (test code Yes = 7779098) UPT Cassette Lot #, POC (test code [id number] = [id number]) UPT Cassette Expiration Date, POC 0165767 (test code = 1595856) [facility] CenterCom[facility] metabolic [id number] 06:43:00 Test Item Value Reference Range Interpretation Comments Protein, Total (test 5.9 See_Comment L [Autom ated code = 2885-2) message] The system which generated this result transmit mimi reference range : 6.0 - 8.3 gm/dL . The reference range was not u sed to interpret th is result as normal/abnormal . Albumin (test code = 3.5 g/dL 3.5-5 82646-4) Alkaline Phosphatase 167 U/L 40-150 H (test code = 6768-6) Total Bilirubin (test 0.1 mg/dL 0.2-1.2 L code = 1975-2) Sodium (test code = 140 meq/L 529-207 4834-2) Potassium (test code 3.9 meq/L 3.5-5.1 = 2823-3) Chloride (test code = 110 meq/L 98-107 H 2074-0) CO2 (test code = 23 meq/L -29 2027-9) BUN (test code = 9 mg/dL 7-21 3094-0) Creatinine (test code 0.63 mg/dL 0.57-1.25 = 2160-0) Glucose (test code = 95 mg/dL 70-105 2345-7) Calcium (test code = 8.8 mg/dL 8.4-10.2 60773-6) AST (test code = 125 U/L 5-34 H 1920-8) ALT (test code = 218 U/L 6-55 H 1742-6) EGFR (test code = 117 mL/min/1.73 [place] [address]-4) NOT ACCURATE CREATININE CLEARANCE IN PREDICTING GLOMERULAR FILTRATION RATE . ESTIMATED GFR I S NOT APPLICABLE FOR DIALYSIS PATIEN TS. MARCELLE (test code = MARCELLE) Tandem Mill Operator ID - MADISON M Lab Interpretation Abnormal (test code = 34843-0) [facility] Center[facility]PRE[facility]IVE MET[facility]OL[facility] [id number] 06:43:00 Test Item Value Reference Range Interpretation Comments TOTAL PROTEIN 5.9 gm/dL 6.0-8.3 L (BEAKER) (test code = 770) ALBUMIN (BEAKER) 3.5 g/dL 3.5-5.0 (test code = 1145) ALKALINE PHOSPHATASE 167 U/L 40-150 H (BEAKER) (test code = 346) BILIRUBIN TOTAL 0.1 mg/dL 0.2-1.2 L (BEAKER) (test code = 377) SODIUM (BEAKER) (test 140 meq/L 136-145 code = 381) POTASSIUM (BEAKER) 3.9 meq/L 3.5-5.1 (test code = 379) CHLORIDE (BEAKER) 110 meq/L 98-107 H (test code = 382) CO2 (BEAKER) (test 23 meq/L - code = 355) BLOOD UREA NITROGEN 9 mg/dL 7-21 (BEAKER) (test code = 354) CREATININE (BEAKER) 0.63 mg/dL 0.57-1.25 (test code = 358) GLUCOSE RANDOM 95 mg/dL 70-105 (BEAKER) (test code = 652) CALCIUM (BEAKER) 8.8 mg/dL 8.4-10.2 (test code = 697) AST (SGOT) (BEAKER) 125 U/L 5-34 H (test code = 353) ALT (SGPT) (BEAKER) 218 U/L 6-55 H (test code = 347) EGFR (BEAKER) (test 117 ESTIMATE D GFR IS code = 1092) mL/min/1.73 sq NOT ACCURA TE m CREATININE CLEARANCE IN PREDICTING GLOMERULAR FILTRATION RATE . ESTIMATED GFR I S NOT APPLICABLE FOR DIALYSIS PATIEN TS. Tandem Mill Operator ID - MADISON [facility]BC (Hemogram only)2020-09-24 06:04:00 Test Item Value Reference Range Interpretation Comments WBC (test code = 6690-2) 10.2 See_Comment [A utomated message] The system [employer] generated this result transmitted ref erence range: 3.5 - 10 .5 K/L. The refe rence range was not u sed to interpret this result as normal/abnor mal. RBC (test code = 789-8) 3.92 See_Comment L [Au tomated message] The system [employer] generated this result transmitted ref erence range: 3.93 - 5 .22 M/L. The refe rence range was not u sed to interpret this result as normal/abnor mal. MCHC (test code = 786-4) 31.7 See_Comment L [A utomated message] The system [employer] generated this result transmitted ref erence range: 32.2 - 3 5.5 GM/DL. The refe rence range was not u sed to interpret this result as normal/abnor mal. Hematocrit (test code = 35.7 % 34.1-44.9 4544-3) MCV (test code = 787-2) 91.1 fL 79.4-94.8 MCH (test code = 785-6) 28.8 pg 25.6-32.2 RDW (test code = 788-0) 13.0 % 11.7-14.4 Platelets (test code = 281 See_Comment [Aut omated message] 057-3) The system [employer] generated this result transmitted ref erence range: 150 - 45 0 K/CU MM. The referen ce range was not u sed to interpret this result as normal/abnor mal. MPV (test code = 9.3 fL 9.4-12.3 L 79303-9) nRBC (test code = 413) 0 See_Comment [Aut omated message] The system [employer] generated this result transmitted ref erence range: 0 - 0 /1 00 WBC. The refere nce range was not u sed to interpret this result as normal/abnor mal. Lab Interpretation (test Abnormal code = 18531-1) [facility] (HEMOGRAM ONLY)2020-09-24 06:04:00 Test Item Value Reference Range Interpretation Comments WHITE BLOOD CELL COUNT (BEAKER) 10.2 K/ L 3.5-10.5 (test code = 775) RED BLOOD CELL COUNT (BEAKER) 3.92 M/ L 3.93-5.22 L (test code = 761) HEMOGLOBIN (BEAKER) (test code = 11.3 GM/DL 11.2-15.7 410) HEMATOCRIT (BEAKER) (test code = 35.7 % 34.1-44.9 411) MEAN CORPUSCULAR VOLUME (BEAKER) 91.1 fL 79.4-94.8 (test code = 753) MEAN CORPUSCULAR HEMOGLOBIN 28.8 pg 25.6-32.2 (BEAKER) (test code = 751) MEAN CORPUSCULAR HEMOGLOBIN CONC 31.7 GM/DL 32.2-35.5 L (BEAKER) (test code = 752) RED CELL DISTRIBUTION WIDTH 13.0 % 11.7-14.4 (BEAKER) (test code = 412) PLATELET COUNT (BEAKER) (test 281 K/CU MM 150-450 code = 756) MEAN PLATELET VOLUME (BEAKER) 9.3 fL 9.4-12.3 L (test code = 754) NUCLEATED RED BLOOD CELLS 0 /100 WBC 0-0 (BEAKER) (test code = 413) COMPREHENSIVE METABOLIC [id number] 07:06:00 Test Item Value Reference Range Interpretation Comments TOTAL PROTEIN 5.8 gm/dL 6.0-8.3 L (BEAKER) (test code = 770) ALBUMIN (BEAKER) 3.4 g/dL 3.5-5.0 L (test code = 1145) ALKALINE PHOSPHATASE 134 U/L 40-150 (BEAKER) (test code = 346) BILIRUBIN TOTAL 0.3 mg/dL 0.2-1.2 (BEAKER) (test code = 377) SODIUM (BEAKER) (test 141 meq/L 136-145 code = 381) POTASSIUM (BEAKER) 3.9 meq/L 3.5-5.1 (test code = 379) CHLORIDE (BEAKER) 110 meq/L 98-107 H (test code = 382) CO2 (BEAKER) (test 25 meq/L 22-29 code = 355) BLOOD UREA NITROGEN 6 mg/dL 7-21 L (BEAKER) (test code = 354) CREATININE (BEAKER) 0.65 mg/dL 0.57-1.25 (test code = 358) GLUCOSE RANDOM 92 mg/dL 70-105 (BEAKER) (test code = 652) CALCIUM (BEAKER) 8.6 mg/dL 8.4-10.2 (test code = 697) AST (SGOT) (BEAKER) 159 U/L 5-34 H (test code = 353) ALT (SGPT) (BEAKER) 223 U/L 6-55 H (test code = 347) EGFR (BEAKER) (test 113 ESTIMATE D GFR IS code = 1092) mL/min/1.73 sq NOT ACCURA TE m CREATININE CLEARANCE IN PREDICTING GLOMERULAR FILTRATION RATE . ESTIMATED GFR I S NOT APPLICABLE FOR DIALYSIS PATIEN TS. Tandem Mill Operator ID - PIAYA LCBC (HEMOGRAM ONLY)2020-09-23 06:47:00 Test Item Value Reference Range Interpretation Comments WHITE BLOOD CELL COUNT (BEAKER) 9.5 K/ L 3.5-10.5 (test code = 775) RED BLOOD CELL COUNT (BEAKER) 3.79 M/ L 3.93-5.22 L (test code = 761) HEMOGLOBIN (BEAKER) (test code = 10.9 GM/DL 11.2-15.7 L 410) HEMATOCRIT (BEAKER) (test code = 35.2 % 34.1-44.9 411) MEAN CORPUSCULAR VOLUME (BEAKER) 92.9 fL 79.4-94.8 (test code = 753) MEAN CORPUSCULAR HEMOGLOBIN 28.8 pg 25.6-32.2 (BEAKER) (test code = 751) MEAN CORPUSCULAR HEMOGLOBIN CONC 31.0 GM/DL 32.2-35.5 L (BEAKER) (test code = 752) RED CELL DISTRIBUTION WIDTH 13.2 % 11.7-14.4 (BEAKER) (test code = 412) PLATELET COUNT (BEAKER) (test 264 K/CU MM 150-450 code = 756) MEAN PLATELET VOLUME (BEAKER) 9.3 fL 9.4-12.3 L (test code = 754) NUCLEATED RED BLOOD CELLS 0 /100 WBC 0-0 (BEAKER) (test code = 413) [id number] 08:27:00 Test Item Value Reference Range Interpretation Comments Magnesium (test code = 2.4 mg/dL 1.6-2.6 81884-2) MARCELLE (test code = MARCELLE) Tandem [employer] Operator ID - MADISON Gleason Lab Interpretation (test Normal code = 55920-6) [facility] Center[facility]PRE[facility] [id number] 08:27:00 Test Item Value Reference Range Interpretation Comments TOTAL PROTEIN 5.9 gm/dL 6.0-8.3 L (BEAKER) (test code = 770) ALBUMIN (BEAKER) 3.4 g/dL 3.5-5.0 L (test code = 1145) ALKALINE PHOSPHATASE 132 U/L 40-150 (BEAKER) (test code = 346) BILIRUBIN TOTAL 0.2 mg/dL 0.2-1.2 (BEAKER) (test code = 377) SODIUM (BEAKER) (test 139 meq/L 136-145 code = 381) POTASSIUM (BEAKER) 3.9 meq/L 3.5-5.1 (test code = 379) CHLORIDE (BEAKER) 108 meq/L 98-107 H (test code = 382) CO2 (BEAKER) (test 24 meq/L 22-29 code = 355) BLOOD UREA NITROGEN 7 mg/dL 7-21 (BEAKER) (test code = 354) CREATININE (BEAKER) 0.66 mg/dL 0.57-1.25 (test code = 358) GLUCOSE RANDOM 83 mg/dL 70-105 (BEAKER) (test code = 652) CALCIUM (BEAKER) 9.0 mg/dL 8.4-10.2 (test code = 697) AST (SGOT) (BEAKER) 101 U/L 5-34 H (test code = 353) ALT (SGPT) (BEAKER) 216 U/L 6-55 H (test code = 347) EGFR (BEAKER) (test 111 ESTIMATE D GFR IS code = 1092) mL/min/1.73 sq NOT ACCURA TE m CREATININE CLEARANCE IN PREDICTING GLOMERULAR FILTRATION RATE . ESTIMATED GFR I S NOT APPLICABLE FOR DIALYSIS PATIEN TS. Tandem Mill Operator ID - MADISON [id number] 08:27:00 Test Item Value Reference Range Interpretation Comments MAGNESIUM (BEAKER) (test code = 2.4 mg/dL 1.6-2.6 627) Tandem [employer] Operator ID - MADISON MProthrombin [id number] 07:59:00 Test Item Value Reference Interpretation Comments Range Protime (test code = 13.0 See_Comment [Autom ated 7792-2) message] The system which generated this result transmitted reference range : 11.9 - 14.2 seconds. The reference range was not used to interpret this result as normal/abnormal . INR (test code = 1.00 See_Comment [Automated 9581-6) message] The system which generated this result transmitted reference range : <=5.90. The reference range was not used to interpret this result as normal/abnormal . MARCELLE (test code = RECOMMENDED MARCELLE) COUMADIN/WARFARIN INR THERAPY RANGESSTANDARD DOSE: 2.0 - 3.0 Includes: PROPHYLAXIS for venous thrombosis, systemic embolization; TREATMENT for venous thrombosis and/or pulmonary embolus.HIGH RISK: Target INR is 2.5-3.5 for patients with mechanical heart valves. Lab Interpretation Normal (test code = 24176-9) [facility] CenterPROTHROMBIN TIME/[id number] 07:59:00 Test Item Value Reference Range Interpretation Comments PROTIME (BEAKER) 13.0 seconds 11.9-14.2 (test code = 759) INR (BEAKER) (test 1.00 See_Comment [Automat ed message] code = 370) The system whic h generated this result transmitted ref erence range: <=5.90. The reference range was not used to int erpret this result as normal/abnormal . RECOMMENDED COUMADIN/WARFARIN INR THERAPY RANGESSTANDARD DOSE: 2.0 - 3.0 Includes: PROPHYLAXIS forvenous thrombosis, systemic embolization; TREATMENT for venous thrombosis and/or pulmonary embolus.HIGH RISK: Target INR is 2.5-3.5 for patients with mechanical heart valves.CBC with platelet count + automated diff 2020-09-22 07:49:00 Test Item Value Reference Range Interpretation Comments WBC (test code = 6690-2) 9.1 See_Comment [A utomated message] The system [employer] generated this result transmitted ref erence range: 3.5 - 10 .5 K/L. The refe rence range was not u sed to interpret this result as normal/abnor mal. RBC (test code = 789-8) 3.89 See_Comment L [Au tomated message] The system [employer] generated this result transmitted ref erence range: 3.93 - 5 .22 M/L. The refe rence range was not u sed to interpret this result as normal/abnor mal. MCHC (test code = 786-4) 31.6 See_Comment L [A utomated message] The system [employer] generated this result transmitted ref erence range: 32.2 - 3 5.5 GM/DL. The refe rence range was not u sed to interpret this result as normal/abnor mal. Hematocrit (test code = 35.8 % 34.1-44.9 4544-3) MCV (test code = 787-2) 92.0 fL 79.4-94.8 MCH (test code = 785-6) 29.0 pg 25.6-32.2 RDW (test code = 788-0) 13.4 % 11.7-14.4 Platelets (test code = 310 See_Comment [Aut omated message] 777-3) The system [employer] generated this result transmitted ref erence range: 150 - 45 0 K/CU MM. The referen ce range was not u sed to interpret this result as normal/abnor mal. MPV (test code = 9.1 fL 9.4-12.3 L 67010-3) nRBC (test code = 413) 0 See_Comment [Aut omated message] The system [employer] generated this result transmitted ref erence range: 0 - 0 /1 00 WBC. The refere nce range was not u sed to interpret this result as normal/abnor mal. % Neutros (test code = 55 % 429) % Lymphs (test code = 29 % 430) % Monos (test code = 9 % 431) % Eos (test code = 432) 4 % % Baso (test code = 437) 1 % # Neutros (test code = 4.95 See_Comment [Aut omated message] 670) The system [employer] generated this result transmitted ref erence range: 1.56 - 6 .13 K/L. The refe rence range was not u sed to interpret this result as normal/abnor mal. # Lymphs (test code = 2.58 See_Comment [Auto mated message] 414) The system [employer] generated this result transmitted ref erence range: 1.18 - 3 .74 K/L. The refe rence range was not u sed to interpret this result as normal/abnor mal. # Monos (test code = 0.81 See_Comment H [Autom ated message] 415) The system [employer] generated this result transmitted ref erence range: 0.24 - 0 .36 K/L. The refe rence range was not u sed to interpret this result as normal/abnor mal. # Eos (test code = 416) 0.33 See_Comment [Au tomated message] The system [employer] generated this result transmitted ref erence range: 0.04 - 0 .36 K/L. The refe rence range was not u sed to interpret this result as normal/abnor mal. # Baso (test code = 417) 0.05 See_Comment [A utomated message] The system [employer] generated this result transmitted ref erence range: 0.01 - 0 .08 K/L. The refe rence range was not u sed to interpret this result as normal/abnor mal. Immature 4 % 0-1 H Granulocytes-Relative (test code = 2801) Lab Interpretation (test Abnormal code = 47213-5) [facility] W/PLT COUNT & AUTO [id number] 07:49:00 Test Item Value Reference Range Interpretation Comments WHITE BLOOD CELL COUNT (BEAKER) 9.1 K/ L 3.5-10.5 (test code = 775) RED BLOOD CELL COUNT (BEAKER) 3.89 M/ L 3.93-5.22 L (test code = 761) HEMOGLOBIN (BEAKER) (test code = 11.3 GM/DL 11.2-15.7 410) HEMATOCRIT (BEAKER) (test code = 35.8 % 34.1-44.9 411) MEAN CORPUSCULAR VOLUME (BEAKER) 92.0 fL 79.4-94.8 (test code = 753) MEAN CORPUSCULAR HEMOGLOBIN 29.0 pg 25.6-32.2 (BEAKER) (test code = 751) MEAN CORPUSCULAR HEMOGLOBIN CONC 31.6 GM/DL 32.2-35.5 L (BEAKER) (test code = 752) RED CELL DISTRIBUTION WIDTH 13.4 % 11.7-14.4 (BEAKER) (test code = 412) PLATELET COUNT (BEAKER) (test 310 K/CU MM 150-450 code = 756) MEAN PLATELET VOLUME (BEAKER) 9.1 fL 9.4-12.3 L (test code = 754) NUCLEATED RED BLOOD CELLS 0 /100 WBC 0-0 (BEAKER) (test code = 413) NEUTROPHILS RELATIVE PERCENT 55 % (BEAKER) (test code = 429) LYMPHOCYTES RELATIVE PERCENT 29 % (BEAKER) (test code = 430) MONOCYTES RELATIVE PERCENT 9 % (BEAKER) (test code = 431) EOSINOPHILS RELATIVE PERCENT 4 % (BEAKER) (test code = 432) BASOPHILS RELATIVE PERCENT 1 % (BEAKER) (test code = 437) NEUTROPHILS ABSOLUTE COUNT 4.95 K/ L 1.56-6.13 (BEAKER) (test code = 670) LYMPHOCYTES ABSOLUTE COUNT 2.58 K/ L 1.18-3.74 (BEAKER) (test code = 414) MONOCYTES ABSOLUTE COUNT (BEAKER) 0.81 K/ L 0.24-0.36 H (test code = 415) EOSINOPHILS ABSOLUTE COUNT 0.33 K/ L 0.04-0.36 (BEAKER) (test code = 416) BASOPHILS ABSOLUTE COUNT (BEAKER) 0.05 K/ L 0.01-0.08 (test code = 417) IMMATURE GRANULOCYTES-RELATIVE 4 % 0-1 H PERCENT (BEAKER) (test code = 7891)
--- NOTE | 2020-09-26 21:16 | EDPHYS ---
Physician Documentation [facility] Name: Mile Wang Age: 25 yrs Sex: Female : 1995 Arrival Date: 09/26/2020 Time: 21:05 Bed 14 Private MD: ED Physician Mesfin Brenner HPI: 09/26 21:12 This 25 yrs old Female presents to ER via Unassigned with complaints of rn Seizure. 21:12 The patient presents with a history of multiple seizures, a total of 3. Character of rn seizure(s): Motor activity: generalized, Incontinence: none, Apnea: the patient did not experience apnea, Circulation: the patient did not experience evidence of pulse disturbance, Eye movements: are unknown. Seizure onset: the onset is not known. Seizure Hx:. Associated injury: The patient did not suffer any apparent associated injury. Current symptoms: Currently, the patient is not experiencing any symptoms. The patient has experienced similar episodes in the past. The patient has been recently seen by a physician:. Patient presents with 2 or 3 seizures at home, generalized seizures, witnessed by family. Mother states recent admission for gallbladder stent surgery, patient stopped taking all of her seizure prescription medication at least a week ago. States nobody knows how to treat her seizures and she refuses to take seizure medication. Currently awake and refusing all work-up. Demands that she goes home.. Historical: - Allergies: 21:39 Doxycycline; bs2 21:39 tramadol; bs2 21:39 Vimpat; bs2 - Home Meds: 21:39 benzonatate Oral [Active]; buspirone 5 mg Oral tab 1 tab 2 times per day [Active]; bs2 Carbamazepine Oral [Active]; Dilantin Oral [Active]; Ibuprofen Oral [Active]; [place] Carbonate Oral [Active]; Prednisone Oral [Active]; Topamax Oral [Active]; Venpat [Active]; Vimpat Oral [Active]; Zofran Oral [Active]; - PMHx: 21:39 Anxiety; Bipolar disorder; Psychogenic Seizures; Seizures; stent in gallbladder; bs2 - PSHx: 21:39 Cholecystectomy; Tonsillectomy; bs2 - Immunization history:: Adult Immunizations not up to date. - Social history:: Smoking status: unknown. - Family history:: not pertinent. - Hospitalizations: : Patient was recently seen at. ROS: 21:12 Constitutional: Negative for fever, chills, and weight loss, Eyes: Negative for injury, rn pain, redness, and discharge, Neck: Negative for injury, pain, and swelling, Cardiovascular: Negative for chest pain, palpitations, and edema, Respiratory: Negative for shortness of breath, cough, wheezing, and pleuritic chest pain, Abdomen/GI: Negative for abdominal pain, nausea, vomiting, diarrhea, and constipation, Back: Negative for injury and pain, : Negative for injury, bleeding, discharge, and swelling, MS/Extremity: Negative for injury and deformity, Skin: Negative for injury, rash, and discoloration, Neuro: Negative for weakness, numbness, tingling Exam: 21:12 Constitutional: This is a well developed, well nourished patient who is awake, alert, rn and in no acute distress. Head/Face: Normocephalic, atraumatic. Eyes: Pupils equal round and reactive to light, extra-ocular motions intact. Lids and lashes normal. Conjunctiva and sclera are non-icteric and not injected. Cornea within normal limits. Periorbital areas with no swelling, redness, or edema. ENT: No tongue laceration Cardiovascular: Regular rate and rhythm. No pulse deficits. Respiratory: Speaking full sentences. No increased work of breathing, no retractions or nasal flaring. Abdomen/GI: Soft, non-tender Skin: Warm, dry MS/ Extremity: Pulses equal, no cyanosis Neuro: Awake and alert, GCS 15, oriented to person, place, time, and situation. Cranial nerves II-XII grossly intact. Motor strength 5/5 in all extremities. Sensory grossly intact. Cerebellar exam normal. Vital Signs: 21:10 BP 121 / 64 RA Sitting (auto/reg); Pulse 92 MON; Resp 16 S; Temp 98.0(O); Pulse Ox 99% bs2 on R/A; Weight 81.65 kg (R); Height 5 ft. 3 in. (160.02 cm) (R); Pain 3/10; 21:10 Body Mass Index 31.89 (81.65 kg, 160.02 cm) bs2 MDM: 21:11 Patient medically screened. rn 21:12 Differential diagnosis: seizure. Data reviewed: vital signs, nurses notes, old medical rn records, and as a result, I will discharge patient. Counseling: I had a detailed discussion with the patient and/or guardian regarding: the historical points, exam findings, and any diagnostic results supporting the discharge/admit diagnosis. Refusal of service: The patient/guardian displays adequate decision making capability and despite a detailed discussion of alternatives, benefits, risks, and consequences refuses: CT Scan, all lab tests, Medications. Special discussion: Based on the history and exam findings, there is no indication for further emergent testing or inpatient evaluation. I discussed with the patient/guardian the need to see the neurologist for further evaluation of the symptoms. ED course: Patient refuses all work-up and medications. has a neurology appointment at [facility] on the for a prolonged EEG. Refuses to take any seizure medication until she gets the results of that study. 21:16 ED course: Patient has full bottles of multiple seizure medications at home, rn knows how to take them, understands she needs to be taking them, and still refuses to take them.. Administered Medications: No medications were administered Disposition Summary: 09/26/20 21:16 Left Against Medical Advice Location: Home rn Problem: an acute exacerbation rn Symptoms: have improved rn Condition: Stable rn Diagnosis - Epileptic seizures related to external causes, not intractable rn Followup: rn - With: Private Physician - When: As needed - Reason: Recheck today's complaints, Re-evaluation by your physician Discharge Instructions: - Discharge Summary Sheet rn - Seizure, Adult rn Signatures: Mesfin Brenner MD MD rn Smith, Bridget, RN RN bs2
--- NOTE | 2020-09-26 21:48 | ER ---
Nurse's Notes [facility] Name: Mile Wang Age: 25 yrs Sex: Female : 1995 Arrival Date: 09/26/2020 Time: 21:05 Bed 14 Private MD: Diagnosis: Epileptic seizures related to external causes, not intractable Presentation: 09/26 21:10 Chief complaint: Patient states: psychogenic seizures, pt states she has medications at bs2 home but refuses to take them states they "Dr's" are trying to make her take to many medications. Coronavirus screen: Client denies travel out of the [place] in the last 14 days. At this time, the client does not indicate any symptoms associated with coronavirus-19. Ebola Screen: Patient negative for fever greater than or equal to 101.5 degrees Fahrenheit, and additional compatible Ebola Virus Disease symptoms Patient denies exposure to infectious person. Patient denies travel to an Ebola-affected area in the 21 days before illness onset. No symptoms or risks identified at this time. Initial Sepsis Screen: Does the patient meet any 2 criteria? No. Patient's initial sepsis screen is negative. Does the patient have a suspected source of infection? No. Patient's initial sepsis screen is negative. Risk Assessment: Do you want to hurt yourself or someone else? Patient reports no desire to harm self or others. Onset of symptoms was September 26, 2020. 21:10 Method Of Arrival: EMS: [facility] bs2 21:10 Acuity: BAIRON 3 bs2 Triage Assessment: 21:40 General: Appears in no apparent distress. obese, well developed, well nourished, bs2 Behavior is cooperative, appropriate for age. Pain: Complains of pain in Headache Pain currently is 2 out of 10 on a pain scale. Historical: - Allergies: 21:39 Doxycycline; bs2 21:39 tramadol; bs2 21:39 Vimpat; bs2 - Home Meds: 21:39 benzonatate Oral [Active]; buspirone 5 mg Oral tab 1 tab 2 times per day [Active]; bs2 Carbamazepine Oral [Active]; Dilantin Oral [Active]; Ibuprofen Oral [Active]; [place] Carbonate Oral [Active]; Prednisone Oral [Active]; Topamax Oral [Active]; Venpat [Active]; Vimpat Oral [Active]; Zofran Oral [Active]; - PMHx: 21:39 Anxiety; Bipolar disorder; Psychogenic Seizures; Seizures; stent in gallbladder; bs2 - PSHx: 21:39 Cholecystectomy; Tonsillectomy; bs2 - Immunization history:: Adult Immunizations not up to date. - Social history:: Smoking status: unknown. - Family history:: not pertinent. - Hospitalizations: : Patient was recently seen at. Screenin:41 Abuse screen: Denies threats or abuse. Denies injuries from another. Nutritional bs2 screening: No deficits noted. Tuberculosis screening: No symptoms or risk factors identified. Fall Risk None identified. Assessment: 21:10 General: Appears in no apparent distress. comfortable, obese, well groomed, well bs2 developed, well nourished, Behavior is calm, cooperative, appropriate for age. General: Dr Brenner is in the room, pt states she has medications at home for the seizures but refuses to take it because they "Dr's" are trying to make her take to many medications. PT states she wants to leave and go home. Dr Brenner states as long as her vital signs are stable she can sign out AMA. . Pain: Complains of pain in headache Pain currently is 3 out of 10 on a pain scale. Neuro: No deficits noted. Reports headache. Cardiovascular: No deficits noted. Respiratory: No deficits noted. GI: No deficits noted. No signs and/or symptoms were reported involving the gastrointestinal system. Vital Signs: 21:10 BP 121 / 64 RA Sitting (auto/reg); Pulse 92 MON; Resp 16 S; Temp 98.0(O); Pulse Ox 99% bs2 on R/A; Weight 81.65 kg (R); Height 5 ft. 3 in. (160.02 cm) (R); Pain 3/10; 21:10 Body Mass Index 31.89 (81.65 kg, 160.02 cm) bs2 ED Course: 21:05 Patient arrived in ED. mw2 21:08 Luz Carroll, JUAN M is Primary Nurse. bs2 21:10 Zen Pierre PA is PHCP. cp 21:10 Mesfin Brenner MD is Attending Physician. cp 21:39 Triage completed. bs2 21:40 Arm band placed on right wrist. bs2 21:41 Patient has correct armband on for positive identification. Pulse ox on. NIBP on. bs2 21:41 No provider procedures requiring assistance completed. Patient did not have IV access bs2 during this emergency room visit. Administered Medications: No medications were administered Outcome: 21:25 AMA AMA form signed bs2 21:25 Condition: stable 21:25 Discharge instructions given to patient, family, Instructed on follow up and referral plans. Demonstrated understanding of instructions, follow-up care. 21:47 Patient left the ED. bs2 Signatures: Mesfin Brenner MD MD rn Zen Pierre PA PA cp [place], MyKena mw2 Luz Carroll RN RN bs2 Corrections: (The following items were deleted from the chart) 21:47 21:41 General: Appears in no apparent distress. comfortable, obese, well groomed, well bs2 developed, well nourished, Behavior is calm, cooperative, appropriate for age, bs2 21:47 21:41 Pain: Complains of pain in headache Pain currently is 3 out of 10 on a pain bs2 scale. bs2 :47 21:41 Neuro: No deficits noted. Reports headache bs2 bs2 21:47 21:41 Cardiovascular: No deficits noted. bs2 bs2 :47 21:41 Respiratory: No deficits noted. bs2 bs2 :47 21:41 GI: No deficits noted. No signs and/or symptoms were reported involving the bs2 gastrointestinal system. bs2 21:47 21:41 General: Dr Brenner is in the room, pt states she has medications at home for the bs2 seizures but refuses to take it because they "Dr's" are trying to make her take to many medications. PT states she wants to leave and go home. Dr Brenner states as long as her vital signs are stable she can sign out AMA. . bs2
[2020-09-26 21:56] VITALS: BP 121/64; TEMP 98; O2SAT 99
== END 2020-09-26 21:47 | disposition left against medical advice (07) ==
LOC: ER 20:54
DX: G40.509 Epileptic seizures related to external causes, not intractable, without status epilepticus (principal); F31.9 Bipolar disorder, unspecified; Z88.4 Allergy status to anesthetic agent; Z88.5 Allergy status to narcotic agent; Z88.8 Allergy status to other drugs, medicaments and biological substances
CPT/HCPCS: 99283

== ENCOUNTER 2020-10-15 21:36 | Emergency (ER) | payer OTHER ==
--- OUTSIDE RECORDS SUMMARY | 2020-10-15 22:09 | XMS REPORT | Continuity of Care Document ---
:1995 Author Organization [facility] t Address [address] [place] [address] Care Team Providers Name Role Phone Asked, Pcp Primary Care Physician Unavailable Rabia Gonzalez Attending Clinician TESHA Attending Clinician Unavailable Tesha TAYLOR Attending Clinician Pedrito TAYLOR Attending Clinician Zackary Ramos MD Attending Clinician Ameya Valero MD Attending Clinician Jose Whalen MD Attending Clinician PEDRITO Admitting Clinician Unavailable Payers Payer Name Policy Type Policy Effective Date Expiration Date Sour ce Number MEDICAID - [id number] [address] [facility] MEDICAID MGD 00:00:00 - Medical [place] [facility] [id number] aid Contracted Problems Condition Condition Condition Status Onset Resolution Last Treating Co mments Source Name Details Category Date Date Treatment Clinician Date Abdominal Abdominal Disease Active [facility] Abnormal Abnormal Disease Active [facility] Allergies, Adverse Reactions, Alerts Allergy Allergy Status Severity Reaction(s) Onset Inactive Treating Comm ents Source Name Type Date Date Clinician Nitrofur Drug Active Anxiety [facility] - Monohyd/ 00:[facility]: Medical [facility] 00 [facility] [place] Drug Active Hives [facility]ergy 09[facility] - 00:[facility]: Medical 00 [place] Doxycycl Drug Active Hives, Rash seizures [facility] ine Allergy 04-20 [facility] Tramadol Drug Active Other (See seizures [facility] All[facility] Comments) [facility] Social History Social Habit Start Date Stop Date Quantity Comments Source History SDOH [facility] - Alcohol Std Drinks [facility] History SDOH [facility] - Alcohol Binge Medical [facility] ter Sex Assigned At [facility] kes [facility] Exposure to Not sure [facility] - SARS-CoV-2 (event) [facility] Tobacco use and 2020-09-24 2020-09-[address] [facility] kes - exposure 00:00:00 00:00:00 [facility] Alcohol intake 2020-09-24 2020-09-24 Ex-drinker [facility] Ezequiel es - 00:00:00 00:00:00 (finding) [facility] History SDOH 2020-09-21 2020-09-[address] [facility] - Alcohol Frequency 00:00:00 00:00:00 [facility] Smoking Status Start Date Stop Date Source [facility] Medications Ordered Filled Start Stop Current Ordering [...] remission mouth Medical 00 nightly. Center ibuprofen 0 2020- No 600mg Take [address] (ADVIL,MOTR 3-07 07-16 mg by [facility] - [place]) 600 MG 00:00: 00:00 mouth. Medi tressa tablet 00 :00 Center Vital Signs Vital Name Observation Time Observation Value Comments Source Systolic blood 2020-09-24 13:45:00 114 mm[Hg] [facility] Diastolic blood 2020-09-24 13:45:00 64 mm[Hg] [facility] Heart rate 2020-09-24 13:45:00 58 /min [facility] Body temperature 2020-09-24 13:45:00 36.17 Shira [facility] Respiratory rate 2020-09-24 13:45:00 20 /min [facility] Oxygen saturation in 2020-09-24 13:45:00 98 /min [facility] Arterial blood by Medical Ce nter Pulse oximetry Body height 2020-09-22 06:00:00 152.4 cm [facility] Body weight 2020-09-22 06:00:00 80.8 kg [facility] BMI 2020-09-22 06:00:00 34.79 kg/m2 [facility] Procedures Procedure Date / Time Performed Performing Clinician [facility] e REPORT OF PROCEDURE - 2020-09-24 13:50:08 Darlene Whalen [facility] ENDOSCOPY [facility] [place] ERCP 2020-09-24 13:05:00 Darlene Whalen [facility] ERCP,DIRECT VISUALIZATION 2020-09-24 12:24:00 Darlene Whalen am [facility] PROCEDURE W/ C-ARM 2020-09-24 12:24:00 Darlene Whalen [facility] ERCP,BALLOON SWEEPING 2020-09-24 12:24:00 Darlene Whalen [facility] POCT , URINE 2020-09-24 11:48:00 Darlene Whalen [facility] CBC (HEMOGRAM ONLY) 2020-09-24 05:38:00 Rachel, Darshan [facility] 2020-09-24 05:38:[address] [facility] LITHIUM LEVEL 2020-09-23 12:19:00 RachelDarshan [facility] 2020-09-23 06:11:00 [facility] Darshan [facility] CBC (HEMOGRAM ONLY) 2020-09-23 06:10:00 [facility] CBC W/PLT COUNT & AUTO 2020-09-22 07:02:00 [facility] 2020-09-22 07:02:00 [facility] MAGNESIUM 2020-09-22 07:02:00 [facility] PROTHROMBIN TIME/INR 2020-09-22 07:02:00 [facility] Plan of Care Planned Activity Planned Date Details Comments Source Future Scheduled 2028-02-16 DTAP/TDAP/TD [facility] 00:[facility]:00 VACCINES (3 - Td) Medical Ce nter [code = DTAP/TDAP/TD VACCINES (3 - Td)] Future Scheduled 2020-11-[address] [facility] - Test 00:00:00 (#1) [code = [facility] INFLUENZA VACCINE (#1)] Future Scheduled 2020-03-[address] [facility] - Test 00:00:00 (12+) [code = [facility] DEPRESSION SCREENING (12+)] Future Scheduled [address] [facility] [facility] - Test 00:00:00 malignant neoplasm Medical C enter of cervix (procedure) [code = 444486566] Future Scheduled [address] [facility] - Test 00:00:00 (procedure) [code = [facility] 69539753] Future Scheduled [address] [facility] - Test 00:00:00 SCREENING [code = Medical Ce nter HEPATITIS C SCREENING] Future Scheduled 2009 COVID-19 VACCINE (1) [facility] - Test 00:00:00 [code = COVID-[address] VACCINE (1)] Future Scheduled [facility]DIA [facility]EN[facility] [code = CHLAMYDIA SCREENING] Future Scheduled COVID-19 [facility]ACCINE (1) [facility] [code = COVID-19 VACCINE (1)] Future Scheduled [facility] (procedure[facility] [code = 207578273] Future Scheduled [facility] Test malignant neoplasm of cervix (procedure) [code = 300021128] Future Scheduled INFLUENZA VACCINE [facility] [code = INFLUENZA VACCINE] Encounters Start End Encounter Admission Attending Care Care Encounter Source Date/Time Date/Time Type Type Clinicians Facility Department ID 2020-10-15 2020-10-15 [id number] 00:00:00 00:00:00 Monique Camarillo [employer] [id number] REGIONAL [id number] MATERNAL [id number] & CHILD 107 [facility] 2020-10-12 2020-10-12 [facility] [id number] 00:00:00 00:00:00 Monique Camar[place] [employer] [id number] REGIONAL [id number] MATERNAL [id number] & CHILD 107 [facility] 2020-10-11 2020-10-11 [place] [facility] [id number] 00:00:00 00:00:00 Monique Camarillo [employer] [id number] REGIONAL [id number] MATERNAL [id number] & CHILD 107 [facility] 2020-10-09 2020-10-09 Office [facility] [id number] 15:44:08 16:29:53 Visit Monique Camarillo [employer] [id number] REGIONAL [id number] MATERNAL [id number] & CHILD 107 [facility] 2019-01-02 2019-01-02 Emergency [facility] [id number] [place] [address] 00:00:00 00:00:[address] Results Test Description Test Time Test Comments Results Result Comments Source Critical access hospital 2020-09-24 18:22:00 Test Item Value Reference Range Interpretation Comme nts [place] Level (test code = 64394-3) 0.8 mmol/L 0.8-1.2 Scan Result (test code = 4094388) See Scanned Report [facility] [id number] 18:22:00 Test Item Value Reference Range Interpretation Comments LITHIUM LEVEL (BEAKER) 0.8 mmol/L 0.8-1.2 (test code = 630) SCAN RESULT (test code = See Scanned Report [id number]) [place], [id number] 14:13:01Reason for exam:->[facility]normal [facility] : 1995 Sex: FFluoroscopic unit utilized for a procedure performed in the OR. No interpretation was requested. Refer to the operative report for findings. Refer to PACS for patient radiation dose information.[place] [id number] 13:05:00Interface, External Ris In - 09/25/2020 2:47 PM CDTFluoroscopic unit utilized for a procedure performed in the OR. No interpretation was requested. Refer to the operative report for findings. Referto PACS for patient radiation dose information.[facility] , [id number] 11:48:00 Test Item Value Reference Range Interpretation Comments Test Urine, POC (test Negative code = 4828454) Control line present?, POC (test Yes code = 1477719) Background clear?, POC (test code Yes = 8124781) UPT Cassette Lot #, POC (test code [id number] = 5150315) UPT Cassette Expiration Date, POC 4164464 (test code = 2166393) [facility] metabolic [id number] 06:43:00 Test Item Value Reference Range Interpretation Comments Protein, Total (test 5.9 See_Comment L [Autom ated code = 2885-2) message] The system which generated this result transmit mimi reference range : 6.0 - 8.3 gm/dL . The reference range was not u sed to interpret th is result as normal/abnormal . Albumin (test code = 3.5 g/dL 3.5-5 89911-4) Alkaline Phosphatase 167 U/L 40-150 H (test code = 6768-6) Total Bilirubin (test 0.1 mg/dL 0.2-1.2 L code = 1975-2) Sodium (test code = 140 meq/L 420-769 0767-2) Potassium (test code 3.9 meq/L 3.5-5.1 = 2823-3) Chloride (test code = 110 meq/L 98-107 H 2075-0) CO2 (test code = 23 meq/L 22-29 8-9) BUN (test code = 9 mg/dL 7-21 3094-0) Creatinine (test code 0.63 mg/dL 0.57-1.25 = 2160-0) Glucose (test code = 95 mg/dL 70-105 2345-7) Calcium (test code = 8.8 mg/dL 8.4-10.2 02666-5) AST (test code = 125 U/L 5-34 H 1920-8) ALT (test code = 218 U/L 6-55 H 1742-6) EGFR (test code = 117 mL/min/1.73 [place] [address]-9) NOT ACCURATE CREATININE CLEARANCE IN PREDICTING GLOMERULAR FILTRATION RATE . ESTIMATED GFR I S NOT APPLICABLE FOR DIALYSIS PATIEN TS. MARCELLE (test code = MARCELLE) Building Trades Instructor ID - MADISON M Lab Interpretation Abnormal (test code = 79693-5) [facility]PREH[facility] METABOL[facility] [id number] 06:43:00 Test Item Value Reference Range Interpretation [...] = 382) CO2 (BEAKER) (test 23 meq/L 22-29 code = 355) BLOOD UREA NITROGEN 9 [...] S NOT APPLICABLE FOR DIALYSIS PATIEN TS. Building Trades Instructor ID - MADISON MCBC (Hemogram only)2020-09-24 06:04:00 Test Item Value Reference Range Interpretation Comments WBC (test code = 6690-2) 10.2 See_Comment [A utomated message] The system Startpack generated this result transmitted ref erence range: 3.5 - 10 .5 K/L. The refe rence range was not u sed to interpret this result as normal/abnor mal. RBC (test code = 789-8) 3.92 See_Comment L [Au tomated message] The system Startpack generated this result transmitted ref erence range: 3.93 - 5 .22 M/L. The refe rence range was not u sed to interpret this result as normal/abnor mal. MCHC (test code = 786-4) 31.7 See_Comment L [A utomated message] The system Startpack generated this result transmitted ref erence range: [...] code = 281 See_Comment [Aut omated message] 777-3) The system Startpack generated this result transmitted ref erence range: 150 - 45 0 K/CU MM. The referen ce range was not u sed to interpret this result as normal/abnor mal. MPV (test code = 9.3 fL 9.4-12.3 L 91836-6) nRBC (test code = 413) 0 See_Comment [Aut omated message] The system Startpack generated this result transmitted ref erence range: 0 - 0 /1 00 WBC. The refere nce range was not u sed to interpret this result as normal/abnor mal. Lab Interpretation (test Abnormal code = 70305-8) [facility] (HEMOGRAM ONLY)2020-09-24 06:04:00 Test Item [...] (BEAKER) (test code = 413) COMPREHENSIVE METABOLIC [id number] 07:06:00 Test Item Value Reference Range Interpretation [...] S NOT APPLICABLE FOR DIALYSIS PATIEN TS. Building Trades Instructor ID - PIAYA LCBC (HEMOGRAM ONLY)2020-09-23 06:47:00 [...] WBC 0-0 (BEAKER) (test code = 413) [id number] 08:27:00 Test Item Value Reference Range Interpretation Comments Magnesium (test code = 2.4 mg/dL 1.6-2.6 65450-2) MARCELLE (test code = MARCELLE) [employer] Tr[employer] Instructor ID - MADISON Gleason Lab Interpretation (test Normal code = 03331-8) [facility] [id number] 08:27:00 Test Item Value Reference Range Interpretation [...] S NOT APPLICABLE FOR DIALYSIS PATIEN TS. [employer] Tr[employer] Instructor ID - MADISON [id number] 08:27:00 Test Item Value Reference Range Interpretation Comments MAGNESIUM (BEAKER) (test code = 2.4 mg/dL 1.6-2.6 627) [employer] Instructor ID - MADISON MProthrombin time/[id number] 07:59:00 Test Item Value Reference Interpretation Comments Range Protime (test code = 13.0 See_Comment [Autom ated 8442-2) message] The system which generated this result transmitted reference range : 11.9 - 14.2 seconds. The reference range was not used to interpret this result as normal/abnormal . INR (test code = 1.00 See_Comment [Automated 0361-6) message] The system which generated this result [...] valves. Lab Interpretation Normal (test code = 75736-6) [facility]PROTHROM[facility] [id number] 07:59:00 Test Item Value Reference Range Interpretation Comments PROTIME (BEAKER) 13.0 seconds 11.9-14.2 (test code = 759) INR (BEAKER) (test 1.00 See_Comment [Automat ed message] code = 370) The system Startpack generated this result transmitted ref erence range: [...] 9.1 See_Comment [A utomated message] The system Startpack generated this result transmitted ref erence range: 3.5 - 10 .5 K/L. The refe rence range was not u sed to interpret this result as normal/abnor mal. RBC (test code = 789-8) 3.89 See_Comment L [Au tomated message] The system Startpack generated this result transmitted ref erence range: 3.93 - 5 .22 M/L. The refe rence range was not u sed to interpret this result as normal/abnor mal. MCHC (test code = 786-4) 31.6 See_Comment L [A utomated message] The system Startpack generated this result transmitted ref erence range: [...] See_Comment [Aut omated message] 777-3) The system Startpack generated this result transmitted ref erence range: 150 - 45 0 K/CU MM. The referen ce range was not u sed to interpret this result as normal/abnor mal. MPV (test code = 9.1 fL 9.4-12.3 L 46134-0) nRBC (test code = 413) 0 See_Comment [Aut omated message] The system Startpack generated this result transmitted ref erence range: [...] See_Comment [Aut omated message] 670) The system Startpack generated this result transmitted ref erence range: 1.56 - 6 .13 K/L. The refe rence range was not u sed to interpret this result as normal/abnor mal. # Lymphs (test code = 2.58 See_Comment [Auto mated message] 414) The system Startpack generated this result transmitted ref erence range: 1.18 - 3 .74 K/L. The refe rence range was not u sed to interpret this result as normal/abnor mal. # Monos (test code = 0.81 See_Comment H [Autom ated message] 415) The system Startpack generated this result transmitted ref erence range: 0.24 - 0 .36 K/L. The refe rence range was not u sed to interpret this result as normal/abnor mal. # Eos (test code = 416) 0.33 See_Comment [Au tomated message] The system Startpack generated this result transmitted ref erence range: 0.04 - 0 .36 K/L. The refe rence range was not u sed to interpret this result as normal/abnor mal. # Baso (test code = 417) 0.05 See_Comment [A utomated message] The system Startpack generated this result transmitted ref erence range: 0.01 - 0 .08 K/L. The refe rence range was not u sed to interpret this result as normal/abnor mal. Immature 4 % 0-1 H Granulocytes-Relative (test code = 2801) Lab Interpretation (test Abnormal code = 56929-8) [facility] W/PLT COUNT & AUTO [id number] 07:49:00 Test Item Value Reference Range Interpretation [...] 0-1 H PERCENT (BEAKER) (test code = 2801)
[2020-10-15 23:42] LABS: Urine Blood Trace-lysed (Negative); Urine Glucose Negative (Negative); Urine Protein Negative (Negative)
[2020-10-16 00:16] LABS: Urine Bacteria <20 /HPF (<20); Urine RBC <5 /HPF (NONE SEEN)
--- NOTE | 2020-10-16 03:07 | ER ---
Nurse's Notes [facility] Name: Mile Wang Age: 25 yrs Sex: Female : 1995 Arrival Date: 10/15/2020 Time: 21:47 Bed Waiting Private MD: Jericho Stephenson Diagnosis: UTI/ Urinary tract infection, site not specified Presentation: 10/15 22:21 Chief complaint: Patient states: has severe lower back pain which started this morning, bb feels tired, has bitter taste in her mouth. Coronavirus screen: fatigue, muscle pain, Client presents with at least one sign or symptom that may indicate coronavirus-19. Standard/surgical mask placed on the client. Ebola Screen: No symptoms or risks identified at this time. Initial Sepsis Screen: Does the patient meet any 2 criteria? No. Patient's initial sepsis screen is negative. Does the patient have a suspected source of infection? No. Patient's initial sepsis screen is negative. Risk Assessment: Do you want to hurt yourself or someone else? Patient reports no desire to harm self or others. Onset of symptoms was October 15, 2020. 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: 22:23 LMP N/A - bb Historical: - Allergies: 22:23 Doxycycline; bb 22:23 tramadol; bb 22:23 Vimpat; bb - Home Meds: 22:23 benzonatate Oral [Active]; buspirone 5 mg Oral tab 1 tab 2 times per day [Active]; bb Carbamazepine Oral [Active]; Dilantin Oral [Active]; Ibuprofen Oral [Active]; Tornado Carbonate Oral [Active]; Prednisone Oral [Active]; Topamax Oral [Active]; Zofran Oral [Active]; - PMHx: 22:23 Anxiety; Bipolar disorder; Psychogenic Seizures; Seizures; stent in gallbladder; bb - PSHx: 22:23 Cholecystectomy; Tonsillectomy; bb - Immunization history:: Adult Immunizations up to date, Client reports having NOT received the Covid vaccine. - Social history:: Smoking status: unknown. Screenin/10 03:07 Abuse screen: Denies threats or abuse. Nutritional screening: No deficits noted. em Tuberculosis screening: No symptoms or risk factors identified. Fall Risk None identified. Assessment: 03:07 General: Appears in no apparent distress. comfortable, Behavior is calm, cooperative. em Pain: Complains of pain in back Pain currently is 10 out of 10 on a pain scale. Neuro: Level of Consciousness is awake, alert, obeys commands, Oriented to person, place, time, situation. Cardiovascular: Capillary refill < 3 seconds Patient's skin is warm and dry. Respiratory: Airway is patent Respiratory effort is even, unlabored, Respiratory pattern is regular, symmetrical. Derm: Skin is intact, is healthy with good turgor, Skin is pink, warm \T\ dry. Musculoskeletal: Capillary refill < 3 seconds, Range of motion: intact in all extremities. Vital Signs: 10/15 22:21 BP 137 / 99; Pulse 85; Resp 20 S; Temp 98.4(O); Pulse Ox 100% on R/A; Weight 79.38 kg bb (R); Height 5 ft. 3 in. (160.02 cm) (R); Pain 10/10; 22:21 Body Mass Index 31.00 (79.38 kg, 160.02 cm) bb ED Course: 21:47 Patient arrived in ED. es 21:49 Jericho Stephenson DO is Private Physician. es 22:23 Triage completed. bb 22:23 Arm band placed on Patient placed in waiting room, Patient notified of wait time. Urine bb obtained. 10/16 03:05 Zen iPerre PA is PHCP. cp 03:05 Zen Villanueva MD is Attending Physician. cp 03:07 Patient has correct armband on for positive identification. em 03:07 No provider procedures requiring assistance completed. Patient did not have IV access em during this emergency room visit. Administered Medications: 03:14 Drug: HYDROcodone-acetaminophen 5 mg-325 mg 1 tabs Route: PO; em 03:15 Follow up: Response: Medication administered at discharge. em 03:14 Drug: Ibuprofen 800 mg Route: PO; em 03:15 Follow up: Response: Medication administered at discharge. em Outcome: 03:06 Discharge ordered by . cp 03:14 Discharged to home ambulatory. em 03:14 Condition: stable 03:14 Discharge instructions given to patient, Instructed on discharge instructions, follow up and referral plans. Demonstrated understanding of instructions, follow-up care, medications, Prescriptions given X 2. 03:15 Patient left the ED. em Signatures: Fannie Borrero Edgar, RN RN em Radha Miller RN RN Zen Botello PA PA cp
--- NOTE | 2020-10-16 03:07 | EDPHYS ---
Physician Documentation [facility] Name: Mile Wang Age: 25 yrs Sex: Female : 1995 Arrival Date: 10/15/2020 Time: 21:47 Bed Waiting Private MD: Jericho Stephenson ED Physician Zen Villanueva HPI: 10/16 03:00 This 25 yrs old Female presents to ER via Ambulatory with complaints of Body cp aches, tired, Back Pain, bitter taste in mouth. 03:00 The patient presents with pain that is acute, with no known mechanism of injury. The cp symptoms are located in the low back. Onset: The symptoms/episode began/occurred this morning. Associated signs and symptoms: Pertinent positives: fatigue, Pertinent negatives: abdominal pain, constipation, fever, numbness, urinary retention, vomiting, weakness. 03:00 The problem was sustained from unknown cause. 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 - bb Historical: - Allergies: 22:23 Doxycycline; bb 22:23 tramadol; bb 22:23 Vimpat; bb - Home Meds: 22:23 benzonatate Oral [Active]; buspirone 5 mg Oral tab 1 tab 2 times per day [Active]; bb Carbamazepine Oral [Active]; Dilantin Oral [Active]; Ibuprofen Oral [Active]; [place] Carbonate Oral [Active]; Prednisone Oral [Active]; Topamax Oral [Active]; Zofran Oral [Active]; - PMHx: 22:23 Anxiety; Bipolar disorder; Psychogenic Seizures; Seizures; stent in gallbladder; bb - PSHx: 22:23 Cholecystectomy; Tonsillectomy; bb - Immunization history:: Adult Immunizations up to date, Client reports having NOT received the Covid vaccine. - Social history:: Smoking status: unknown. ROS: 10/16 03:02 Constitutional: Positive for fatigue, Negative for body aches, chills, fever, poor PO cp intake. 03:02 Eyes: Negative for injury, pain, redness, and discharge. cp 03:02 ENT: Negative for ear pain, sore throat, difficulty swallowing, difficulty handling secretions. 03:02 Cardiovascular: Negative for chest pain, palpitations. 03:02 Respiratory: Negative for cough, shortness of breath, wheezing. 03:02 Abdomen/GI: Negative for abdominal pain, nausea, vomiting, and diarrhea. 03:02 : Negative for pelvic pain, difficulty urinating. 03:02 Skin: Negative for rash. 03:02 Neuro: Negative for altered mental status, headache, weakness. 03:02 All other systems are negative. Exam: 03:05 Constitutional: The patient appears in no acute distress, alert, awake, non-toxic, well cp developed, well nourished. 03:05 Head/Face: Normocephalic, atraumatic. cp 03:05 Eyes: Periorbital structures: appear normal, Conjunctiva: normal, no exudate, no injection, Sclera: no appreciated abnormality, Lids and lashes: appear normal, bilaterally. 03:05 ENT: External ear(s): are unremarkable, Nose: is normal, Mouth: Lips: moist, Oral mucosa: moist, Posterior pharynx: Airway: no evidence of obstruction, patent. 03:05 Chest/axilla: Inspection: normal. 03:05 Cardiovascular: Rate: normal. 03:05 Respiratory: the patient does not display signs of respiratory distress, Respirations: normal, no use of accessory muscles, no retractions, labored breathing, is not present. 03:05 Abdomen/GI: Inspection: abdomen appears normal. 03:05 Neuro: Orientation: to person, place \T\ time. Mentation: is normal, Motor: moves all fours, strength is normal, Gait: is steady, at a normal pace, without difficulty. Vital Signs: 10/15 22:21 BP 137 / 99; Pulse 85; Resp 20 S; Temp 98.4(O); Pulse Ox 100% on R/A; Weight 79.38 kg bb (R); Height 5 ft. 3 in. (160.02 cm) (R); Pain 10/10; 22:21 Body Mass Index 31.00 (79.38 kg, 160.02 cm) bb MDM: 10/16 03:06 Patient medically screened. cp 03:06 Data reviewed: vital signs, nurses notes, lab test result(s), urinalysis. cp 03:06 Differential diagnosis: UTI, pyelonephritis, sepsis. Counseling: I had a detailed cp discussion with the patient and/or guardian regarding: the historical points, exam findings, and any diagnostic results supporting the discharge/admit diagnosis, lab results, to return to the emergency department if symptoms worsen or persist or if there are any questions or concerns that arise at home. 10/15 23:42 Order name: Urine Dipstick-Ancillary; Complete Time: 02:59 EDID 10/15 23:43 Order name: Urine Microscopic Only; Complete Time: 02:59 em 10/15 23:54 Order name: Urine --Ancillary (enter results) [facility] 10/15 23:55 Order name: Urine --Ancillary; Complete Time: 02:59 EDID 10/16 00:17 Order name: Urine Culture EDID 10/15 23:54 Order name: Urine Test (obtain specimen); Complete Time: 23:54 mw2 10/15 23:54 Order name: Urine Dipstick-Ancillary (obtain specimen); Complete Time: 23:54 mw2 Administered Medications: 03:14 Drug: HYDROcodone-acetaminophen 5 mg-325 mg 1 tabs Route: PO; em 03:15 Follow up: Response: Medication administered at discharge. em 03:14 Drug: Ibuprofen 800 mg Route: PO; em 03:15 Follow up: Response: Medication administered at discharge. em Disposition Summary: 10/16/20 03:06 Discharge Ordered Location: Home cp Problem: new cp Symptoms: have improved cp Condition: Stable cp Diagnosis - UTI/ Urinary tract infection, site not specified cp Followup: cp - With: Private Physician - When: 2 - 3 days - Reason: Worsening of condition Discharge Instructions: - Discharge Summary Sheet cp - Urinary Tract Infection, Adult cp Forms: - Medication Reconciliation Form cp - Thank You Letter cp - Antibiotic Education cp - Prescription Opioid Use cp Prescriptions: - Pyridium 200 mg Oral Tablet - take 1 tablet by ORAL route every 8 hours for 3 days; 6 tablet; Refills: 0, cp Product Selection Permitted - Bactrim DS 800-160 mg Oral Tablet - take 1 tablet by ORAL route every 12 hours for 5 days; 10 tablet; Refills: 0, cp Product Selection Permitted Addendum: 10/17/2020 07:51 Co-signature as Attending Physician, Zen Villanueva MD I agree with the assessment and c poole plan of care. Signatures: Dispatcher [employer] Zen Lu MD MD cha Munoz, Edgar RN RN em Radha Miller RN RN Page, Zen, PA PA cp [place], MyKena mw2
[2020-10-16 03:30] VITALS: BP 137/99; TEMP 98.4; O2SAT 100
[2020-10-16] MEDS ORDERED: IBUPROFEN 400 MG TAB ONE (03:34)
[2020-10-16] MEDS ORDERED: HYDROCODONE/APAP 5/325 MG TAB ONE (03:34)
== END 2020-10-16 03:15 | disposition home or self-care (01) ==
LOC: ER 21:36
DX: N39.0 Urinary tract infection, site not specified (principal); F31.9 Bipolar disorder, unspecified; G40.909 Epilepsy, unspecified, not intractable, without status epilepticus; Z88.1 Allergy status to other antibiotic agents; Z88.5 Allergy status to narcotic agent; Z88.8 Allergy status to other drugs, medicaments and biological substances
CPT/HCPCS: 81003; 81015; 81025; 87086; 87088; 99283

== ENCOUNTER 2020-12-15 21:12 | Emergency (ER) | payer OTHER ==
[2020-12-15 22:22] LABS: Absolute Lymphocytes (CBC) 3.1 K/uL (0.7-4.9); Basophils % 0.6 % (0-1.3); Hematocrit 39.5 % (36.0-45.0); Lymphocytes % 30.4 % (15.3-44.8); MPV 8.1 fL (7.6-11.3); RBC Red Blood Cell Count 4.62 M/uL (3.86-4.86)
[2020-12-15 22:23] LABS: Urine Blood Negative (Negative); Urine Glucose Negative (Negative); Urine Protein Negative (Negative)
[2020-12-15 22:34] LABS: Protime INR 0.91
[2020-12-15 22:44] LABS: ALT/SGPT 24 U/L (12-78); AST/SGOT 16 U/L (15-37); Albumin 4.1 g/dL (3.4-5.0); Alkaline Phosphatase 85 U/L (45-117); BUN Blood Urea Nitrogen 7 mg/dL (7-18); Bicarbonate 24 mmol/L (21-32); Bilirubin Direct < 0.1 mg/dL (0-0.2); Bilirubin Total 0.2 mg/dL (0.2-1.0); Glucose Level 90 mg/dL (74-106); Potassium 3.5 mmol/L (3.5-5.1); Sodium Level 142 mmol/L (136-145)
[2020-12-15 23:08] LABS: Lithium 0.6 mmol/L (0.6-1.2)
[2020-12-16] MEDS ORDERED: LITHIUM CARBONATE 300 MG TAB ONE
[2020-12-16] MEDS ORDERED: lamoTRIgine 100 MG TAB ONE (00:07)
--- NOTE | 2020-12-16 00:24 | ER ---
Nurse's Notes [facility] Name: Mile Wang Age: 25 yrs Sex: Female : 1995 Arrival Date: 12/15/2020 Time: 21:13 Bed 23 Private MD: Diagnosis: Other seizures Presentation: 12/15 21:38 Chief complaint: Patient states: Had 3 seizures today while at work about 1999, EMS lp1 called, patient refused transportation; Reports "my job wants me to be checked out before I return"; Reports missing dose of seizure med this week, denies any fall, head trauma with seizure. Coronavirus screen: At this time, the client does not indicate any symptoms associated with coronavirus-19. Ebola Screen: No symptoms or risks identified at this time. Initial Sepsis Screen: Does the patient meet any 2 criteria? No. Patient's initial sepsis screen is negative. Does the patient have a suspected source of infection? No. Patient's initial sepsis screen is negative. Risk Assessment: Do you want to hurt yourself or someone else? Patient reports no desire to harm self or others. Onset of symptoms was December 15, 2020 at 20:00. 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 - Social history:: Smoking status: Patient denies any tobacco usage or history of. Screenin:41 Abuse screen: Denies threats or abuse. Denies injuries from another. Nutritional lp1 screening: No deficits noted. Tuberculosis screening: No symptoms or risk factors identified. 21:46 Fall Risk IV access (20 points). Gait- Normal/Bed Rest/Wheelchair (0 pts) Mental sj1 Status- Oriented to own ability (0 pts). Assessment: 21:44 General: Appears in no apparent distress. comfortable, well groomed, Behavior is calm, sj1 cooperative, appropriate for age. Pain: Complains of pain in gen headache. Pain: Pain does not radiate. Pain currently is 6 out of 10 on a pain scale. Quality of pain is described as aching. Neuro:. 21:45 Neuro: Seizure activity reported prior to arrival. Seizure lasted approximately 2 sj1 minutes. Cardiovascular: No deficits noted. Respiratory: No deficits noted. GI: No deficits noted. : No deficits noted. EENT: No deficits noted. Derm: No deficits noted. Musculoskeletal: No deficits noted. 23:21 Reassessment: Patient appears in no apparent distress at this time. No changes from sj1 previously documented assessment. Vital Signs: 21:38 BP 124 / 86; Pulse 91; Resp 16; Temp 98.5(O); Pulse Ox 100% on R/A; Weight 82.55 kg lp1 (R); Height 5 ft. 3 in. (160.02 cm); Pain 0/10; 22:01 BP 104 / 73; Pulse 81; Resp 18; Pulse Ox 96% on 3 lpm NC; df1 23:20 BP 121 / 81 RA Sitting (auto/reg); Pulse 71; Resp 16 S; Pulse Ox 100% ; Pain 3/10; sj1 21:38 Body Mass Index 32.24 (82.55 kg, 160.02 cm) lp1 [place] Score: 21:41 Eye Response: spontaneous(4). Verbal Response: oriented(5). Motor Response: obeys lp1 commands(6). Total: 15. ED Course: 21:13 Patient arrived in ED. rg4 21:39 Triage completed. lp1 21:41 Arm band placed on left wrist. lp1 21:44 No provider procedures requiring assistance completed. Inserted saline lock: 20 gauge sj1 in left hand, using aseptic technique. Blood collected. 21:46 Patient has correct armband on for positive identification. Placed in gown. Bed in low sj1 position. Call light in reach. Side rails up X 1. Seizure precautions initiated. 21:58 Zen Pierre PA is PHCP. cp 21:58 Zen Villanueva MD is Attending Physician. cp 22:00 CBC with Diff Sent. sj1 22:00 ETOH Level Sent. sj1 22:00 Hepatic Function Sent. sj1 22:00 PT-INR Sent. sj1 22:00 Ptt, Activated Sent. sj1 22:00 Salicylate Sent. sj1 22:00 [place] Sent. sj1 22:33 Urine Dipstick-Ancillary Sent. sj1 22:34 [place] Sent. sj1 12/16 00:23 Richard Desai MD is Referral Physician. cp 00:34 IV discontinued, intact, bleeding controlled, No redness/swelling at site. sj1 Administered Medications: 12/15 23:45 Drug: LaMICtal (lamoTRIgine) 100 mg Route: PO; sj1 12/16 00:24 Follow up: Response: No adverse reaction sj1 12/15 23:45 Drug: [place] 900 mg Route: PO; sj1 12/16 00:24 Follow up: Response: No adverse reaction 1 Outcome: 00:23 Discharge ordered by . cp 00:33 Discharged to home ambulatory. sj1 00:33 Condition: stable 00:33 Discharge instructions given to patient, Instructed on discharge instructions, follow up and referral plans. Demonstrated understanding of instructions, follow-up care. 00:34 Patient left the ED. 1 Signatures: Sallie Barkley, RN RN lp1 Zen Pierre PA PA Oneyda Humphreys rg4 Graciela Hoang df1 Miriam Mosley RN RN sj1 Corrections: (The following items were deleted from the chart) 12/15 23:33 21:39 Home Meds: [place] Carbonate Oral; lp1 sj1 23:33 21:39 Home Meds: buspirone 5 mg Oral tab 1 tab 2 times per day; lp1 sj1
--- NOTE | 2020-12-16 00:24 | EDPHYS ---
Physician Documentation [facility] Name: Mile Wang Age: 25 yrs Sex: Female : 1995 Arrival Date: 12/15/2020 Time: 21:13 Bed 23 Private MD: Zen Coon HPI: 12/15 22:05 This 25 yrs old Female presents to ER via Ambulatory with complaints of cp Seizure. 22:05 The patient presents with a history of multiple seizures, a total of 3. cp 22:05 Character of seizure(s): Loss of consciousness: the patient experienced loss of cp consciousness, brief, Incontinence: none. 22:05 Seizure onset: today. cp 22:05 Seizure Hx: Seizure medications: Lamictal, [place]. cp 22:05 Current symptoms: Currently, the patient is not experiencing any symptoms, the patient cp feels back to baseline. Patient reports she missed taking seizure medication several days ago and believes this is what triggered seizures today. 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 - Social history:: Smoking status: Patient denies any tobacco usage or history of. ROS: 22:10 Constitutional: Negative for body aches, chills, fever, poor PO intake. cp 22:10 Eyes: Negative for injury, pain, redness, and discharge. cp 22:10 Cardiovascular: Negative for chest pain, palpitations. cp 22:10 Respiratory: Negative for cough, shortness of breath, wheezing. 22:10 Abdomen/GI: Negative for abdominal pain, nausea, vomiting, and diarrhea. 22:10 Neuro: Positive for history of seizures, Negative for altered mental status, headache, weakness. 22:10 All other systems are negative. cp Exam: 22:20 Constitutional: The patient appears in no acute distress, alert, awake, comfortable, cp non-diaphoretic, non-toxic, well developed, well nourished. 22:20 Head/Face: Normocephalic, atraumatic. cp 22:20 Eyes: Periorbital structures: appear normal, Pupils: equal, round, and reactive to light and accomodation, Extraocular movements: intact throughout, Conjunctiva: normal, no exudate, no injection, Sclera: no appreciated abnormality, Lids and lashes: appear normal, bilaterally. 22:20 ENT: External ear(s): are unremarkable, Nose: is normal, Mouth: Lips: moist, Oral mucosa: pink and intact, moist, Posterior pharynx: Airway: no evidence of obstruction, patent. 22:20 Neck: ROM/movement: is normal, is supple, without pain, no range of motions limitations, no nuchal rigidity. 22:20 Chest/axilla: Inspection: normal, Palpation: is normal, no crepitus, no tenderness. 22:20 Cardiovascular: Rate: normal, Rhythm: regular. 22:20 Respiratory: the patient does not display signs of respiratory distress, Respirations: normal, no use of accessory muscles, no retractions, labored breathing, is not present, Breath sounds: are clear throughout, no decreased breath sounds. 22:20 Abdomen/GI: Exam negative for discomfort, distension, guarding, Inspection: abdomen appears normal. 22:20 Neuro: Orientation: to person, place \T\ time. Mentation: is normal, Motor: moves all fours, strength is normal, Sensation: is normal. 22:22 ECG was reviewed by the Attending Physician. cp Vital Signs: 21:38 BP 124 / 86; Pulse 91; Resp 16; Temp 98.5(O); Pulse Ox 100% on R/A; Weight 82.55 kg lp1 (R); Height 5 ft. 3 in. (160.02 cm); Pain 0/10; 22:01 BP 104 / 73; Pulse 81; Resp 18; Pulse Ox 96% on 3 lpm NC; df1 23:20 BP 121 / 81 RA Sitting (auto/reg); Pulse 71; Resp 16 S; Pulse Ox 100% ; Pain 3/10; sj1 21:38 Body Mass Index 32.24 (82.55 kg, 160.02 cm) lp1 [place] Score: 21:41 Eye Response: spontaneous(4). Verbal Response: oriented(5). Motor Response: obeys lp1 commands(6). Total: 15. MDM: 22:06 Patient medically screened. cp 23:00 Differential diagnosis: cerebral vascular accident, drug overdose, cardiac arrhythmia, cp seizure, medication non-compliance. 12/16 00:20 Data reviewed: vital signs, nurses notes, lab test result(s), EKG. cp 00:20 Test interpretation: by ED physician or midlevel provider: ECG. Counseling: I had a cp detailed discussion with the patient and/or guardian regarding: the historical points, exam findings, and any diagnostic results supporting the discharge/admit diagnosis, lab results, the need for outpatient follow up, a neurologist, to return to the emergency department if symptoms worsen or persist or if there are any questions or concerns that arise at home. ED course: VSS. No seizure activity observed while monitoring patient in ED. Will discharge to home for continued monitoring. 12/15 21:56 Order name: Acetaminophen; Complete Time: 23:24 cp 12/15 21:56 Order name: Basic Metabolic Panel; Complete Time: 23:24 cp 12/15 21:56 Order name: CBC with Diff; Complete Time: 23:24 cp 12/15 21:56 Order name: ETOH Level; Complete Time: 23:24 cp 12/15 21:56 Order name: Hepatic Function; Complete Time: 23:24 cp 12/15 21:56 Order name: PT-INR; Complete Time: 23:24 cp 12/15 21:56 Order name: Ptt, Activated; Complete Time: 23:24 cp 12/15 21:56 Order name: Salicylate; Complete Time: 23:24 cp 12/15 21:58 Order name: [place]; Complete Time: 23:24 cp 12/15 22:22 Order name: Urine Dipstick-Ancillary EDMS 12/15 22:23 Order name: Urine Dipstick-Ancillary; Complete Time: 23:24 EDMS 12/15 22:24 Order name: Urine --Ancillary (enter results); Complete Time: 23:24 tt3 12/15 21:56 Order name: EKG; Complete Time: 21:57 cp 12/15 21:56 Order name: EKG - Nurse/Tech; Complete Time: 22:33 cp 12/15 21:56 Order name: IV Saline Lock; Complete Time: 22:00 cp 12/15 21:56 Order name: Labs collected and sent; Complete Time: 22:00 cp 12/15 21:56 Order name: Urine Dipstick-Ancillary (obtain specimen); Complete Time: 22:34 cp 12/15 21:58 Order name: Urine Test (obtain specimen); Complete Time: 22:33 cp 12/15 21:58 Order name: Urine Dipstick-Ancillary (obtain specimen); Complete Time: 22:33 cp 12/15 23:26 Order name: Misc. Order: lithium dose? will give orally; Complete Time: 23:46 cp EC/09 22:22 Rate is 77 beats/min. Rhythm is regular. MI interval is normal. QRS interval is normal. cp QT interval is normal. T waves are Inverted in lead aVR. Interpreted by me. Reviewed by me. Administered Medications: 23:45 Drug: LaMICtal (lamoTRIgine) 100 mg Route: PO; sj1 12/16 00:24 Follow up: Response: No adverse reaction 1 12/15 23:45 Drug: [place] 900 mg Route: PO; sj1 12/16 00:24 Follow up: Response: No adverse reaction sj1 Disposition Summary: 12/16/20 00:23 Discharge Ordered Location: Home cp Problem: chronic cp Symptoms: have improved cp Condition: Stable cp Diagnosis - Other seizures cp Followup: cp - With: Richard Desai MD - When: 2 - 3 days - Reason: Recheck today's complaints Discharge Instructions: - Discharge Summary Sheet cp - Seizure, Adult cp Forms: - Medication Reconciliation Form cp - Thank You Letter cp - Antibiotic Education cp - Prescription Opioid Use cp - Work release form sj1 Addendum: 12/17/2020 07:00 Co-signature as Attending Physician, Zen poole Signatures: Dispatcher [employer] Zen Lu MD MD cha Pena, Laura, RN RN lp1 Zen Pierre PA PA cp Johnson, Sade RN RN sj1 Corrections: (The following items were deleted from the chart) 12/15 22:34 21:56 Suicide Screening ([place]) ordered. cp sj1 : 21:39 Home Meds: [place] Carbonate Oral; lp1 sj1 :33 21:39 Home Meds: buspirone 5 mg Oral tab 1 tab 2 times per day; lp1 sj1
[2020-12-16 00:44] VITALS: TEMP 98.5
[2020-12-16 00:46] VITALS: BP 121/81; O2SAT 100
== END 2020-12-16 00:34 | disposition home or self-care (01) ==
LOC: ER 21:12
DX: G40.89 Other seizures (principal); F41.9 Anxiety disorder, unspecified; F31.9 Bipolar disorder, unspecified; Z88.3 Allergy status to other anti-infective agents; Z88.6 Allergy status to analgesic agent; Z88.8 Allergy status to other drugs, medicaments and biological substances; Z90.49 Acquired absence of other specified parts of digestive tract
CPT/HCPCS: 36415; 80048; 80076; 80178; 80320; 80329; 81003; 81025; 85025; 85610; 85730; 93005; 99283

== ENCOUNTER 2021-01-02 15:56 | Emergency (ER) | payer OTHER ==
--- NOTE | 2021-01-02 16:33 | EDPHYS ---
Physician Documentation [facility] Name: Mile Wang Age: 25 yrs Sex: Female : 1995 Arrival Date: 01/02/2021 Time: 16:05 Bed 12 Private MD: ED Physician Mesfin Brenner HPI: 01/02 16:29 This 25 yrs old Female presents to ER via EMS with complaints of Seizure. rn 16:30 The patient presents after having a single isolated seizure. Character of seizure(s): rn Motor activity: generalized, Incontinence: none, Circulation: the patient did not experience evidence of pulse disturbance, Eye movements: are unknown. Seizure onset: just prior to arrival. Context: the seizure(s) was witnessed, by co-worker(s), occurred at work, occurred while the patient was at rest, Contributing factors: sleep deprivation. Associated injury: The patient did not suffer any apparent associated injury. Current symptoms: Currently, the patient is not experiencing any symptoms. The patient has experienced similar episodes in the past, chronically. The patient has not recently seen a physician. Patient reports had another seizure, has known seizure disorder, very difficult to control, most recently on Lamictal and last seizure 2 to 3 weeks ago. Was at work when had seizure, typical for her, lasted a few minutes, picked up by EMS and no meds given, back to normal prior to arrival here. No injuries. Reports has not been sleeping well and thinks sleep deprivation is causing her seizure today.. 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 - Social history:: Smoking status: Patient denies any tobacco usage or history of. - Family history:: not pertinent. - Hospitalizations: : No recent hospitalization is reported. ROS: 16:30 Constitutional: Negative for fever, chills, and weight loss, Eyes: Negative for injury, rn pain, redness, and discharge, Neck: Negative for injury, pain, and swelling, Cardiovascular: Negative for chest pain, palpitations, and edema, Respiratory: Negative for shortness of breath, cough, wheezing, and pleuritic chest pain, Abdomen/GI: Negative for abdominal pain, nausea, vomiting, diarrhea, and constipation, Back: Negative for injury and pain, : Negative for injury, bleeding, discharge, and swelling, MS/Extremity: Negative for injury and deformity, Skin: Negative for injury, rash, and discoloration, Neuro: Negative for headache, weakness, numbness, tingling Exam: 16:30 Constitutional: This is a well developed, well nourished patient who is awake, alert, rn and in no acute distress. Head/Face: Normocephalic, atraumatic. Eyes: Pupils equal round and reactive to light, extra-ocular motions intact. Lids and lashes normal. Conjunctiva and sclera are non-icteric and not injected. Cornea within normal limits. Periorbital areas with no swelling, redness, or edema. ENT: MMM, no tongue laceration Cardiovascular: Regular rate and rhythm. No pulse deficits. Respiratory: No increased work of breathing, no retractions or nasal flaring. Skin: Warm, dry with normal turgor. Normal color with no rashes, no lesions, and no evidence of cellulitis. MS/ Extremity: Pulses equal, no cyanosis. Neurovascular intact. Full, normal range of motion. Equal circumference. Neuro: Awake and alert, GCS 15, oriented to person, place, time, and situation. Cranial nerves II-XII grossly intact. Motor strength 5/5 in all extremities. Sensory grossly intact. Cerebellar exam normal. Normal gait. Vital Signs: 16:10 BP 132 / 88; Pulse 89; Resp 18; Temp 98.5(O); Pulse Ox 99% on R/A; Weight 86.18 kg; ld1 Height 5 ft. 3 in. (160.02 cm); Pain 0/10; 16:10 Body Mass Index 33.66 (86.18 kg, 160.02 cm) ld1 MDM: 16:15 Patient medically screened. rn 16:30 Differential diagnosis: seizure. Data reviewed: vital signs, nurses notes, and as a rn result, I will discharge patient. Counseling: I had a detailed discussion with the patient and/or guardian regarding: the historical points, exam findings, and any diagnostic results supporting the discharge/admit diagnosis, the need for outpatient follow up, to return to the emergency department if symptoms worsen or persist or if there are any questions or concerns that arise at home. Special discussion: I discussed with the patient/guardian in detail that at this point there is no indication for admission to the hospital. It is understood, however, that if the symptoms persist or worsen the patient needs to return immediately for re-evaluation. ED course: Patient had an epileptic seizure, compliant with her medicine, most likely secondary to sleep deprivation. Back to normal without any complaints. No indication for emergent work-up here. Will DC home with continuation of her medication recommend better sleep.. Administered Medications: No medications were administered Disposition Summary: 01/02/21 16:32 Discharge Ordered Location: Home rn Problem: chronic rn Symptoms: have improved rn Condition: Stable rn Diagnosis - Epileptic seizures related to external causes, not intractable rn Followup: rn - With: Private Physician - When: As needed - Reason: Recheck today's complaints, Re-evaluation by your physician Discharge Instructions: - Seizure, Adult rn - Discharge Summary Sheet ld1 Forms: - Medication Reconciliation Form rn - Thank You Letter rn - Antibiotic regulatory intern - Prescription Opioid Use rn - Work release form ld1 Signatures: Mesfin Brenner MD MD rn Dibbern, Lauren, RN RN ld1
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
[2021-01-02 16:45] VITALS: BP 132/88; TEMP 98.5; O2SAT 99
== END 2021-01-02 16:40 | disposition home or self-care (01) ==
LOC: ER 15:56
DX: G40.509 Epileptic seizures related to external causes, not intractable, without status epilepticus (principal); F31.9 Bipolar disorder, unspecified; Z88.1 Allergy status to other antibiotic agents; Z88.5 Allergy status to narcotic agent; Z88.8 Allergy status to other drugs, medicaments and biological substances
CPT/HCPCS: 99283

== ENCOUNTER 2021-01-04 13:19 | Emergency (ER) | payer OTHER ==
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
[2021-01-04 17:21] VITALS: O2SAT 100
[2021-01-04 17:23] VITALS: BP 110/62
== END 2021-01-04 17:15 | disposition home or self-care (01) ==
LOC: ER 13:19
DX: Z04.41 Encounter for examination and observation following alleged adult rape (principal)
CPT/HCPCS: 99283

== ENCOUNTER 2021-02-03 19:49 | Emergency (ER) | payer OTHER ==
--- OUTSIDE RECORDS SUMMARY | 2021-02-03 20:04 | XMS REPORT | Continuity of Care Document ---
:1995 Author Organization [facility] t Address [address] [place] [address] Care Team Providers Name Role Phone Asked, Pcp Primary Care Physician Unavailable TESHA Attending Clinician Unavailable Lab Attending Clinician Unavailable Rabia Gonzalez Attending Clinician Rabia PATEL Attending Clinician Unavailable Misael Pennington MD Attending Clinician RAFI Attending Clinician Unavailable MISAEL PENNINGTON Attending Clinician Unavailable MISAEL PENNINGTON Attending Clinician Unavailable Elvia Stephenson Attending Clinician ELVIA SALINAS Attending Clinician Unavailable Joby Ramírez MD Attending Clinician JOBY RAMÍREZ Attending Clinician Unavailable Doctor Unassigned, Name Attending Clinician Unavailable Rudy MCGOWAN, A Attending Clinician Unavailable Gabriel TAYLOR S Attending Clinician Piyush RIOS Attending Clinician Unavailable Only, Test Attending Clinician Unavailable Sandra Galvin MD Attending Clinician Yulia Cardenas Attending Clinician Singer [place] Attending Clinician Irma WALLACE C Attending Clinician Herb SOLIS Attending Clinician Unavailable Demian Simon DO Attending Clinician Visit, Nurse Attending Clinician Unavailable Bryn Hernandez Attending Clinician Bryn KATZ Attending Clinician Unavailable AGUS Attending Clinician Unavailable Agus TAYLOR Attending Clinician Kulwinder MCGOWAN, D Attending Clinician Unavailable NICK Attending Clinician Unavailable Nick GAITAN Attending Clinician Moody PIMENTEL Attending Clinician Unavailable Ciara [place] I Attending Clinician TESHA Admitting Clinician Unavailable Gabriel TAYLOR S Admitting Clinician ROSAURAMIRANDA Admitting Clinician Unavailable AGUS Admitting Clinician Unavailable NICK Admitting Clinician Unavailable Moody PIMENTEL Admitting Clinician Unavailable Payers Payer Name Policy Type Policy Number Effective Date Expiration Date [facility] [id number] 2017 [facility] MEDICAID 00:00:00 Advance Directives Directive Decision Effective Termination Comments Source Date Date Healthcare Agents on N/A Univ ersity FileNameRelationshipHealthcare [place] [facility] Agent Medical RelationshipCommunicationEncompass Health [facility] NeeceMotherHealth Care [phone] (Mobile) Problems Condition Condition Condition Status Onset Resolution Last Treating Co mments Source Name Details Category Date Date Treatment Clinician Date Frequent Frequent Disease Active Unive rs UTI UTI 8-03 ity of 00:: [address] Seizures Seizures Disease Active Unive rs 7-26 ity of 00:: [address] UTI UTI Disease Active Univers symptoms symptoms 4-01 ity of 00:00: [place] [facility] Other Other Disease Active Univers general general 4-01 [place] of counseling [place] and advice [place] dical [facility] contracept contracept billy billy management management Pain Pain Disease Active Univers pelvic pelvic 4-16 ity of 00:: [address] Routine Routine Disease Active Univers 2-25 it y of follow-up follow-up 00:00: [address] Abnormal Abnormal Disease Active Unive rs EKG EKG 8-02 ity of 00:00: [address] History of History of Disease Active U nivers seizure seizure 6-13 ity of 00:00: [place] 00 Medical Branch Over Over Disease Active Univers weight weight 6-13 ity of 00:00: [place] 00 Medical Branch Vaginal Vaginal Disease Active Univers discharge discharge 7-03 ity of 00:00: [place] 00 Medical Branch Chlamydia Chlamydia Disease Active Uni vers 5-10 ity of 00:00: [place] 00 Medical Branch Bipolar Bipolar Disease Active Univers affective affective 5-09 ity of disorder, disorder, 00:00[place] remission Med[place] status status Branch unspecifie unspecifie d d Seizure Seizure Disease Active 2015-03 Overview: Univ ers disorder disorder 2- Formattin ity of 00:00: g of this [place] 00 note Medical might be Branch different from the original. Epilepsy x's 2 years. Had genetic counselin g 01/18/16 per [place] [facility]see external records-p age 20-23 Allergies, Adverse Reactions, Alerts Allergy Allergy Status Severity Reaction(s) Onset Inactive Treating Comm ents Source Name Type Date Date Clinician Nitrofur Propensi Active Palpitations Univers antoin ty to 8- ity of Monohyd/ adverse 00:00: [place] M-Cryst reaction 00 Medical s Branch Lacosami Propensi Active Hives Univer s de ty to 8-03 ity of adverse 00:00: [place] reaction 00 Medical s Branch NITROFUR DRUG Active Palpitations 2020-0 [place] ANTOIN 8-03 ity of MONOHYD/ 00:00: [place] M-CRYST 00 Medical Branch LACOSAMI DRUG Active Hives 0 Univers DE INGREDI 8-03 ity of 00:00: [place] 00 Medical Branch LACOSAMI Allergy Active High Hives 2020- [facility] NITROFUR Allergy Active Med Anxiety 2020- [facility] ANTOIN [facility] - MONOHYD/ 00:00: Medical M-CRYST 00 Center Doxycycl Propensi Active Other - See 2019- seizures Univers ine ty to comments 2-12 ity of adverse 00:00: [place] reaction 00 Medical s Branch Tramadol Propensi Active Other - See 2019- seizures Univers ty to comments 2-12 ity of adverse 00:00: [place] reaction 00 Medical s Branch DOXYCYCL DRUG Active Other-Cmnt Univ ers INE INGREDI 2-12 ity of 00:00: [place] [facility] TRAMADOL DRUG Active Other-Cmnt Univ ers INGREDI 2-12 ity of 00:00: Medical Branch DOXYCYCL Allergy Active High Hives [facility] INE 2[facility]12 [facility] 00:[facility] Medical [facility] Center TRAMADOL Allergy Active Other [facility] Medical [facility] Center Social History Social Habit Start Date Stop Date Quantity Comments Source Exposure to Not sure [facility] SARS-CoV-2 (event) Medica l Branch Alcohol intake 2020-11-26 2020-11-26 0 /d [facility] 00:00:00 00:00:00 Medical Branch Tobacco use and 2015-12-21 2015-12-21 Never used [facility] exposure 00:00:00 00:00:00 Medical Branch Sex Ass[birth year] At [birth year] [facility] 00:00:00 00:00:00 Medical Branch Smoking Status Start Date Stop Date Source Never smoker [facility] Medications Ordered Filled Start Stop Current Ordering Indication Dosage Frequency Signature Comments Components Source Medication Medication Date Date Medication? Clinician (SIG) Name Name lamoTRIgine 2020-03 Yes [id number] Take 4 by Univers 25 mg 0-22 mouth BID. ity of disintegrat 00:00: [place] ing tablet 00 Medical Branch lamoTRIgine 2020-03 Yes [id number] Take 4 by Univers 25 mg 0-22 mouth BID. ity of disintegrat 00:00: [place] ing tablet 00 Medical Branch lamoTRIgine Yes [id number] Take 3 by Univers 25 mg 9-20 mouth BID ity of disintegrat 00:00: [place] 14 [place] tablet 00 days. When Med ical prescripti Branch on completes. lamoTRIgine 2020- No [id number] Take 3 by Univers 25 mg 9-20 10-22 mouth BID ity of disintegrat 00:00: 00:00 for 14 [place] ing tablet 00 :00 days. When Med ical prescripti Branch on completes. trospium 20 Yes [id number] 20mg Take 1 Univers mg tablet 8-26 tablet by ity o f 00:00: mouth 2 [place] 00 (two) Medical times Branch daily. trospium 20 2020-0 Yes [id number] 20mg Take 1 Univers mg tablet 8-26 tablet by ity o f 00:00: mouth 2 (two) Medical times Branch daily. trospium 20 2020-0 Yes [id number] 20mg Take 1 Univers mg tablet 8-26 tablet by ity o f 00:00: mouth 2 (two) Medical times Branch daily. trospium 20 2020-0 Yes [id number] 20mg Take 1 Univers mg tablet 8-26 tablet by ity o f 00:00: mouth 2 (two) Medical times Branch daily. trospium 20 2020-0 Yes [id number] 20mg Take 1 Univers mg tablet 8-26 tablet by ity o f 00:00: mouth 2 (two) Medical times Branch daily. trospium 20 2020-0 Yes [id number] 20mg Take 1 Univers mg tablet 8-26 tablet by ity o f 00:00: mouth [place] (two) Medical times Branch daily. trospium 20 2020-0 Yes [id number] 20mg Take 1 Univers mg tablet 8-26 tablet by ity o f 00:00: mouth 2 (two) Medical times Branch daily. lamoTRIgine 2020-2020- No [id number] 25mg Take 1 Univers 25 mg 8-13 08-21 tablet by ity of tablet 00:00: 04:59 mouth [place] 00 :00 every Medical evening Branch for 7 days. lamoTRIgine 2020-2020- No [id number] 25mg Take 1 Univers 25 mg 8-13 08-21 tablet by ity of tablet 00:00: 04:59 mouth [place] 00 :00 every Medical evening Branch for 7 days. lamoTRIgine 2020-2020- No [id number] 25mg Take 1 Univers 25 mg 8-13 08-21 tablet by ity of tablet 00:00: 04:59 mouth [place] 00 :00 every Medical evening Branch for 7 days. lamoTRIgine 2020- No [id number] 25mg Take 1 Univers 25 mg 8-13 08-21 tablet by ity of tablet 00:00: 04:59 mouth [place] 00 :00 every Medical evening Branch for 7 days. lamoTRIgine 2020- No [id number] 25mg Take 1 Univers 25 mg 8-13 -21 tablet by ity of tablet 00:00: 04:59 mouth [place] 00 :00 every Medical evening Branch for 7 days. lamoTRIgine 2020- No [id number] 25mg Take 1 Univers 25 mg 8-13 -21 tablet by ity of tablet 00:00: 04:59 mouth [place] 00 :00 every Medical evening Branch for 7 days. lamoTRIgine 2020- No [id number] 25mg Take 1 Univers 25 mg 8-13 -21 tablet by ity of tablet 00:00: 04:59 mouth [place] 00 :00 every Medical evening Branch for 7 days. lamoTRIgine 2020- No [id number] 25mg Take 1 Univers 25 mg 8-19 10- tablet by ity of tablet 00:00: 04:59 mouth [place] 00 :00 every Medical evening Branch for 7 days. lamoTRIgine 2020- No [id number] 25mg Take 1 Univers 25 mg 8-19 10- tablet by ity of tablet 00:00: 04:59 mouth [place] 00 :00 every Medical evening Branch for 7 days. lamoTRIgine 2020- No [id number] 25mg Take 1 Univers 25 mg 8-19 10- tablet by ity of tablet 00:00: 04:59 mouth [place] 00 :00 every Medical evening Branch for 7 days. lamoTRIgine 2020- No [id number] 25mg Take 1 Univers 25 mg 8-13 - tablet by ity of tablet 00:00: 04:59 mouth [place] 00 :00 every Medical evening Branch for 7 days. gadoteridol 2020- No [id number] .2mL/kg 0.2 mL/kg, Univers (PROHANCE-2 10-18 Intravenou i ty of 0 mL) 18:45: 18:46 s, ONCE, 1 [place] injection 00 :00 dose, [facility] Medic al 0.2 mL/kg 10/18/20 at [facility] 1345, Routine metroNIDAZO Yes [id number] 500mg Take 1 Univers LE (FLAGYL) 10-15 tablet by ity of 500 mg 00:00: mouth 2 [place] tablet 00 (two) Medical times Branch daily. metroNIDAZO Yes [id number] 500mg Take 1 Univers LE (FLAGYL) - tablet by ity of 500 mg 00:00: mouth 2 [place] tablet 00 (two) Medical times Branch daily. metroNIDAZO 2020- No [id number] 500mg Take 1 Univers LE (FLAGYL) 10-15 tablet by it y of 500 mg 00:00: 00:00 mouth 2 [place] tablet 00 :00 (two) Medical times Branch daily. metroNIDAZO 2020- No [id number] 500mg Take 1 Univers LE (FLAGYL) 10-15 tablet by it y of 500 mg 00:00: 00:00 mouth 2 [place] tablet 00 :00 (two) Medical times [place] daily. metroNIDAZO 2020- No [id number] 500mg Take 1 Univers LE (FLAGYL) 10-15 tablet by it y of 500 mg 00:00: 00:00 mouth 2 [place] tablet 00 :00 (two) Medical times [place] daily. metroNIDAZO 2020- No [id number] 500mg Take 1 Univers LE (FLAGYL) 10-15 tablet by it y of 500 mg 00:00: 04:59 mouth 2 [place] tablet 00 :00 (two) Medical times [place] daily for 7 days. metroNIDAZO 2020- No [id number] 500mg Take 1 Univers LE (FLAGYL) 10-15 tablet by it y of 500 mg 00:00: 00:00 mouth 2 [place] tablet 00 :00 (two) Medical times [place] daily for 7 days. azithromyci 2020- No [id number] 1000mg Take 2 Univers n 10-11 08-06 tablets by ity of (ZITHROMAX) 00:00: 04:59 mouth once [place] 500 mg 00 :00 now for 1 Medical tablet dose. Branch LITHIUM Yes Take by Univer s CARBONATE 10-09 mouth. ity of ORAL 21:04: [place] 25 Medical Branch busPIRone Yes 10mg Take 10 mg [place] 10 mg 10-09 by mouth 2 ity of tablet 21:04: (two) [place] 25 times Medical daily. Branch LITHIUM 2020-0 Yes Take by Univer s CARBONATE 8-03 mouth. ity of ORAL 21:04: [place] [address] Medical Branch busPIRone 2020-0 Yes 10mg Take 10 mg [place] 10 mg 8-03 by mouth 2 ity of tablet 21:04: (two) [place] 25 times Medical daily. Branch LITHIUM 2020-0 Yes Take by Univer s CARBONATE 8-03 mouth. ity of ORAL 21:04: [place] [address] Medical Branch busPIRone 2020-0 Yes 10mg Take 10 mg [place] 10 mg 8-03 by mouth 2 ity of tablet 21:04: (two) [place] 25 times Medical daily. Branch LITHIUM 2020-0 Yes Take by Univer s CARBONATE 8-03 mouth. ity of ORAL 21:04: [place] [address] Medical Branch busPIRone 2020-0 Yes 10mg Take 10 mg [place] 10 mg 8-03 by mouth 2 ity of tablet 21:04: (two) [place] 25 times Medical daily. Branch LITHIUM 2020-0 Yes Take by Univer s CARBONATE 8-03 mouth. ity of ORAL 21:04: [place] [address] Medical Branch busPIRone 2020-0 Yes 10mg Take 10 mg [place] 10 mg 8-03 by mouth 2 ity of tablet 21:04: (two) [place] 25 times Medical daily. Branch LITHIUM 2020-0 Yes Take by Univer s CARBONATE 8-03 mouth. ity of ORAL 21:04: [place] [address] Medical Branch busPIRone 2020-0 Yes 10mg Take 10 mg [place] 10 mg 8-03 by mouth 2 ity of tablet 21:04: (two) [place] 25 times Medical daily. Branch LITHIUM 2020-0 Yes Take by Univer s CARBONATE 8-03 mouth. ity of ORAL 21:04: [place] [address] Medical Branch busPIRone 2020-0 Yes 10mg Take 10 mg [place] 10 mg 8-03 by mouth 2 ity of tablet 21:04: (two) [place] 25 times Medical daily. Branch LITHIUM 2020-0 Yes Take by Univer s CARBONATE 8-03 mouth. ity of ORAL 21:04: [place] [address] Medical Branch busPIRone 1-0 Yes 10mg Take 10 mg [place] 10 mg 8-03 by mouth 2 ity of tablet 21:04: (two) [place] 25 times Medical daily. Branch LITHIUM 2020-0 Yes Take by Univer s CARBONATE 8-03 mouth. ity of ORAL 21:04: Medical Branch busPIRone 2020-0 Yes 10mg Take 10 mg [place] 10 mg 8-03 by mouth 2 ity of tablet 21:04: (two) [place] 25 times Medical daily. Branch LITHIUM 2020-0 Yes Take by Univer s CARBONATE 8-03 mouth. ity of ORAL 21:04: Medical Branch busPIRone 2020-0 Yes 10mg Take 10 mg [place] 10 mg 8-03 by mouth 2 ity of tablet 21:04: (two) [place] 25 times Medical daily. Branch LITHIUM 2020-0 Yes Take by Univer s CARBONATE 8-03 mouth. ity of ORAL 21:04: Medical Branch busPIRone 2020-0 Yes 10mg Take 10 mg [place] 10 mg 8-03 by mouth 2 ity of tablet 21:04: (two) [place] 25 times Medical daily. Branch LITHIUM 2020-0 Yes Take by Univer s CARBONATE 8-03 mouth. ity of ORAL 16:04: Medical Branch busPIRone 2020-0 Yes 10mg Take 10 mg [place] 10 mg 8-03 by mouth 2 ity of tablet 16:04: (two) [place] 25 times Medical daily. Branch LITHIUM 2020-0 Yes Take by Univer s CARBONATE 8-03 mouth. ity of ORAL 16:04: Medical Branch busPIRone 2020-0 Yes 10mg Take 10 mg [place] 10 mg 8-03 by mouth 2 ity of tablet 16:04: (two) [place] 25 times Medical daily. Branch LITHIUM 2020-0 Yes Take by Univer s CARBONATE 8-03 mouth. ity of ORAL 16:04: [place] [address] Medical Branch busPIRone 2020-0 Yes 10mg Take 10 mg [place] 10 mg 8-03 by mouth 2 ity of tablet 16:04: (two) [place] 25 times Medical daily. Branch LITHIUM 2020-0 Yes Take by Univer s CARBONATE 8-03 mouth. ity of ORAL 16:04: [place] [address] Medical Branch busPIRone 2020-0 Yes 10mg Take 10 mg [place] 10 mg 8-03 by mouth 2 ity of tablet 16:04: (two) [place] 25 times Medical daily. Branch LITHIUM Yes Take by Univer s CARBONATE 7-30 mouth. ity of ORAL 15:22: [address] busPIRone Yes 10mg Take 10 mg [place] 10 mg 7-30 by mouth 2 ity of tablet 15:22: (two) [place] 11 times Medical daily. Branch LITHIUM Yes Take by Univer s CARBONATE 7-30 mouth. ity of ORAL 15:22: [address] busPIRone Yes 10mg Take 10 mg [place] 10 mg 7-30 by mouth 2 ity of tablet 15:22: (two) [place] 11 times Medical daily. Branch LITHIUM Yes Take by Univer s CARBONATE 7-30 mouth. ity of ORAL 15:22: [address] busPIRone Yes 10mg Take 10 mg [place] 10 mg 7-30 by mouth 2 ity of tablet 15:22: (two) [place] 11 times Medical daily. [place] lamoTRIgine 2020- No [id number] Take 1 Univers 25 mg 7-30 09-27 tablet by ity of tablet 00:00: 04:59 mouth [place] 00 :00 daily for Medical 7 days, Branch THEN 1 tablet 2 (two) times daily for 7 days, THEN 2 tablets every morning for 7 days, THEN 2 tablets 2 (two) times daily for 7 days, THEN 4 tablets 2 (two) times daily for 30 days. lamoTRIgine 2020- No [id number] Take 1 Univers 25 mg 7-30 09-27 tablet by ity of tablet 00:00: 04:59 mouth [place] 00 :00 daily for Medical 7 days, Luis THEN 1 tablet 2 (two) times daily for 7 days, THEN 2 tablets every morning for 7 days, THEN 2 tablets 2 (two) times daily for 7 days, THEN 4 tablets 2 (two) times daily for 30 days. lamoTRIgine 2020- No [id number] Take 1 Univers 25 mg 7-30 09-27 tablet by ity of tablet 00:00: 04:59 mouth [place] 00 :00 daily for Medical 7 days, Luis THEN 1 tablet 2 (two) times daily for 7 days, THEN 2 tablets every morning for 7 days, THEN 2 tablets 2 (two) times daily for 7 days, THEN 4 tablets 2 (two) times daily for 30 days. lamoTRIgine No [id number] Take 1 Univers 25 mg 7-30 09-27 tablet by ity of tablet 00:00: 04:59 mouth [place] 00 :00 daily for Medical 7 days, Branch THEN 1 tablet 2 (two) times daily for 7 days, THEN 2 tablets every morning for 7 days, THEN 2 tablets 2 (two) times daily for 7 days, THEN 4 tablets 2 (two) times daily for 30 days. lamoTRIgine No [id number] Take 1 Univers 25 mg 7-30 09-27 tablet by ity of tablet 00:00: 04:59 mouth [place] 00 :00 daily for Medical 7 days, Branch THEN 1 tablet 2 (two) times daily for 7 days, THEN 2 tablets every morning for 7 days, THEN 2 tablets 2 (two) times daily for 7 days, THEN 4 tablets 2 (two) times daily for 30 days. lamoTRIgine 2020- No [id number] Take 1 Univers 25 mg 7-30 09-27 tablet by ity of tablet 00:00: 04:59 mouth [place] 00 :00 daily for Medical 7 days, Branch THEN 1 tablet 2 (two) times daily for 7 days, THEN 2 tablets every morning for 7 days, THEN 2 tablets 2 (two) times daily for 7 days, THEN 4 tablets 2 (two) times daily for 30 days. lamoTRIgine 2020- No [id number] Take 1 Univers 25 mg 7-30 09-27 tablet by ity of tablet 00:00: 04:59 mouth [place] 00 :00 daily for Medical 7 days, Luis THEN 1 tablet 2 (two) times daily for 7 days, THEN 2 tablets every morning for 7 days, THEN 2 tablets 2 (two) times daily for 7 days, THEN 4 tablets 2 (two) times daily for 30 days. lamoTRIgine No [id number] Take 1 Univers 25 mg 7-30 09-27 tablet by ity of tablet 00:00: 04:59 mouth [place] 00 :00 daily for Medical 7 days, Luis THEN 1 tablet 2 (two) times daily for 7 days, THEN 2 tablets every morning for 7 days, THEN 2 tablets 2 (two) times daily for 7 days, THEN 4 tablets 2 (two) times daily for 30 days. lamoTRIgine No [id number] Take 1 Univers 25 mg 7-30 09-27 tablet by ity of tablet 00:00: 04:59 mouth [place] 00 :00 daily for Medical 7 days, Branch THEN 1 tablet 2 (two) times daily for 7 days, THEN 2 tablets every morning for 7 days, THEN 2 tablets 2 (two) times daily for 7 days, THEN 4 tablets 2 (two) times daily for 30 days. lamoTRIgine No [id number] Take 1 Univers 25 mg 7-30 09-27 tablet by ity of tablet 00:00: 04:59 mouth [place] 00 :00 daily for Medical 7 days, Branch THEN 1 tablet 2 (two) times daily for 7 days, THEN 2 tablets every morning for 7 days, THEN 2 tablets 2 (two) times daily for 7 days, THEN 4 tablets 2 (two) times daily for 30 days. lamoTRIgine 2020- No [id number] Take 1 Univers 25 mg 7-30 09-27 tablet by ity of tablet 00:00: 04:59 mouth [place] 00 :00 daily for Medical 7 days, Branch THEN 1 tablet 2 (two) times daily for 7 days, THEN 2 tablets every morning for 7 days, THEN 2 tablets 2 (two) times daily for 7 days, THEN 4 tablets 2 (two) times daily for 30 days. lamoTRIgine 2020- No [id number] Take 1 Univers 25 mg 7-30 09-27 tablet by ity of tablet 00:00: 04:59 mouth [place] 00 :00 daily for Medical 7 days, Luis THEN 1 tablet 2 (two) times daily for 7 days, THEN 2 tablets every morning for 7 days, THEN 2 tablets 2 (two) times daily for 7 days, THEN 4 tablets 2 (two) times daily for 30 days. lamoTRIgine No [id number] Take 1 Univers 25 mg 7-30 09-27 tablet by ity of tablet 00:00: 04:59 mouth [place] 00 :00 daily for Medical 7 days, [place] THEN 1 tablet 2 (two) times daily for 7 days, THEN 2 tablets every morning for 7 days, THEN 2 tablets 2 (two) times daily for 7 days, THEN 4 tablets 2 (two) times daily for 30 days. lamoTRIgine 2020- No [id number] Take 1 Univers 25 mg 10-05 tablet by ity of tablet 00:00: 04:59 mouth [place] 00 :00 daily for Medical 7 days, [place] THEN 1 tablet 2 (two) times daily for 7 days, THEN 2 tablets every morning for 7 days, THEN 2 tablets 2 (two) times daily for 7 days, THEN 4 tablets 2 (two) times daily for 30 days. lamoTRIgine 2020- No [id number] Take 1 Univers 25 mg 10-05 tablet by ity of tablet 00:00: 00:00 mouth [place] 00 :00 daily for Medical 7 days, [place] THEN 1 tablet 2 (two) times daily for 7 days, THEN 2 tablets every morning for 7 days, THEN 2 tablets 2 (two) times daily for 7 days, THEN 4 tablets 2 (two) times daily for 30 days. hydrOXYzine Yes 50mg 50 mg, Univ ers (ATARAX) 10-04 Oral, ity of tablet 50 21:33: Q8HPRN, [place] mg 44 Starting Medical [facility] 10/04/20 at 1633, Until Discontinu ed, Routine, Anxiety LORazepam Yes 2mg 2 mg, Univers (ATIVAN) 10-03 Intramuscu ity o f injection 2 20:47: lar, PRN - [place] mg 05 SEE Medical [facility] NS, 2 doses, Starting [facility] 10/03/20 at 1547, Until Discontinu ed, STAT, For seizure lasting two minutes or longer. hydrOXYzine 2020- No 10mg 10 mg, Uni vers (ATARAX) 10-03 Oral, Q8H, ity of tablet 10 20:00: 21:22 First dose [place] mg 00 :10 on [facility] 10/03/20 at Branch 1500, Until Discontinu ed, Routine lithium Yes 600mg 600 mg, Univer s carbonate 10-02 Oral, QAM, ity of CR tablet 14:00: First dose [place] 600 mg 00 on Thu [facility] 7/27/21 at Branch 0900, Until Discontinu ed busPIRone 2020-0 Yes 10mg 10 mg, Univer s (BUSPAR) 7-27 Oral, BID, ity o f tablet 10 01:00: First dose [place] mg 00 on [facility] Medical 10/01/20 at Branch 2000, Until Discontinu ed, Routine famotidine 2020-0 Yes 20mg 20 mg, Unive rs (PEPCID AC) 7-27 Oral, BID, it y of tablet 20 01:00: First dose [place] mg 00 on [facility] Medical 10/01/20 at Branch 2000, Until Discontinu ed, Routine heparin 2020-0 Yes 5000U 5,000 Univers (porcine) 7- Units, ity of injection 01:00: Subcutaneo [place] 5,000 Units 00 us, Q12H, Med ical First dose Branch on Thu10/01/20 at 2000, Until Discontinu ed, Routine lithium 2020-0 Yes 900mg 900 mg, Univer s carbonate - Oral, QPM, ity of (LITHONATE) 22:00: First dose [place] capsule 900 00 on [facility] Medica l mg 10/01/20 at Branch 1700, Until Discontinu ed, Routine LITHIUM 2020-0 Yes Take by Univer s CARBONATE 7- mouth. ity of ORAL 17:24: [address] busPIRone 2020-0 Yes 10mg Take 10 mg [place] 10 mg 7- by mouth 2 ity of tablet 17:24: (two) [place] 16 times Medical daily. Branch LITHIUM 2020-0 Yes Take by Univer s CARBONATE 7- mouth. ity of ORAL 17:24: [address] busPIRone 2020-0 Yes 10mg Take 10 mg [place] 10 mg 7- by mouth 2 ity of tablet 17:24: (two) [place] 16 times Medical daily. [place] topiramate 2020-0 2020- No 100mg Take 100 U nivers (TOPAMAX) 7-26 07-26 mg by ity of 100 mg 17:24: 00:00 mouth. [place] tablet 16 :00 [facility] topiramate 2020-0 2020- No 100mg Take 100 U nivers (TOPAMAX) 7-26 07-26 mg by ity of 100 mg 17:24: 00:00 mouth. [place] tablet 16 :00 [facility] topiramate 2020- No 100mg Take 100 U nivers (TOPAMAX) 10-01 mg by ity of 100 mg 17:24: 00:00 mouth. [place] tablet 16 :00 [facility] ondansetron Yes 4mg 4 mg, Slow Univers (ZOFRAN 10-01 IV Push, ity of (PF)) 17:23: Q6HPRN, [place] injection 4 23 Starting Medi tressa mg [facility] 10/01/20 at 1223, Until Discontinu ed, Routine, Nausea and Vomiting (N/V) acetaminoph Yes 650mg 650 mg, [place] en 10-01 Oral, ity of (TYLENOL) 17:23: Q6HPRN, [place] tablet 650 17 Starting Medic al mg [facility] 10/01/20 at 1223, Until Discontinu ed, Routine, Pain (scale 1-3) clonazePAM No .5mg 0.5 mg, Uni vers (KLONOPIN) 09-13 Oral, ity of tablet 0.5 04:45: 03:48 ONCE, 1 [place] as mg 00 :00 dose, [facility] 09/12/20 at Branch 2345, Routine famotidine No 20mg 20 mg, IV U nivers 20 mg in NS 09-13 Piggyback, i ty of 50 ml 02:45: 04:38 ONCE, 1 [place] (PEPCID) 20 00 :00 dose, Thu Med ical mg/50 mL 09/12/20 at [place] Piggyback 2145, 50 20 mg mL diphenhydrA 2020- No 25mg 25 mg, Uni vers MINE 09-13 Slow IV ity of (BENADRYL) 02:45: 02:26 Push, [place] injection 00 :00 ONCE, 1 Medical 25 mg dose, [facility] 09/12/20 at 2145, STAT methylPREDN 2020- No 125mg 125 mg, U nivers ISolone sod 09-13 Intravenou i ty of succ 02:30: 02:22 s, ONCE [place] (SOLU-MEDRO 00 :00 NOW, 1 Medica l L (PF)) dose, Thu Branch injection 09/12/20 at 125 mg 2130, Routine carBAMazepi 2020- No 600mg 600 mg, U nivers ne 09-12 07-07 Oral, ity of (TEGRETOL) 02:45: 01:56 ONCE, 1 [place] as tablet 600 00 :00 dose, Tue Medi tressa mg 09/11/20 at Branch 2145, SHAYNA hydrOXYzine Yes [id number] 50mg Take 1 Univers (VISTARIL) 7-07 capsule by ity of 50 mg 00:00: mouth 3 [place] capsule 00 (three) Medical times Branch daily as needed for Itching. hydrOXYzine Yes [id number] 50mg Take 1 Univers (VISTARIL) 7-07 capsule by ity of 50 mg 00:00: mouth 3 [place] capsule 00 (three) Medical times Branch daily as needed for Itching. hydrOXYzine Yes [id number] 50mg Take 1 Univers (VISTARIL) 7-07 capsule by ity of 50 mg 00:00: mouth 3 [place] capsule 00 (three) Medical times Branch daily as needed for Itching. hydrOXYzine Yes [id number] 50mg Take 1 Univers (VISTARIL) 7-07 capsule by ity of 50 mg 00:00: mouth 3 [place] capsule 00 (three) Medical times Branch daily as needed for Itching. hydrOXYzine Yes [id number] 50mg Take 1 Univers (VISTARIL) 7-07 capsule by ity of 50 mg 00:00: mouth 3 [place] capsule 00 (three) Medical times Branch daily as needed for Itching. hydrOXYzine Yes [id number] 50mg Take 1 Univers (VISTARIL) 7-07 capsule by ity of 50 mg 00:00: mouth 3 [place] capsule 00 (three) Medical times Branch daily as needed for Itching. hydrOXYzine 0 Yes [id number] 50mg Take 1 [facility] (VISTARIL) 7-07 capsule by ity of 50 mg 00:00: mouth 3 [place] capsule 00 (three) Medical times Branch daily as needed for Itching. hydrOXYzine Yes [id number] 50mg Take 1 [facility] (VISTARIL) 7-07 capsule by ity of 50 mg 00:00: mouth 3 [place] capsule 00 (three) Medical times Branch daily as needed for Itching. hydrOXYzine 2020-0 Yes [id number] 50mg Take 1 Univers (VISTARIL) 7-07 capsule by ity of 50 mg 00:00: mouth 3 [place] capsule 00 (three) Medical times Branch daily as needed for Itching. hydrOXYzine 2020-0 Yes [id number] 50mg Take 1 Univers (VISTARIL) 7-07 capsule by ity of 50 mg 00:00: mouth 3 [place] capsule 00 (three) Medical times Branch daily as needed for Itching. hydrOXYzine 2020-0 Yes [id number] 50mg Take 1 Univers (VISTARIL) 7-07 capsule by ity of 50 mg 00:00: mouth 3 [place] capsule 00 (three) Medical times Branch daily as needed for Itching. hydrOXYzine 2020-0 Yes [id number] 50mg Take 1 Univers (VISTARIL) 7-07 capsule by ity of 50 mg 00:00: mouth 3 [place] capsule 00 (three) Medical times Branch daily as needed for Itching. hydrOXYzine 2020-0 Yes [id number] 50mg Take 1 Univers (VISTARIL) 7-07 capsule by ity of 50 mg 00:00: mouth 3 [place] capsule 00 (three) Medical times Branch daily as needed for Itching. hydrOXYzine 2020-0 Yes [id number] 50mg Take 1 Univers (VISTARIL) 7-07 capsule by ity of 50 mg 00:00: mouth 3 [place] capsule 00 (three) Medical times Branch daily as needed for Itching. hydrOXYzine 2020-0 Yes [id number] 50mg Take 1 Univers (VISTARIL) 7-07 capsule by ity of 50 mg 00:00: mouth 3 [place] capsule 00 (three) Medical times Branch daily as needed for Itching. hydrOXYzine 2020-0 Yes [id number] 50mg Take 1 Univers (VISTARIL) 7-07 capsule by ity of 50 mg 00:00: mouth 3 [place] capsule 00 (three) Medical times Branch daily as needed for Itching. hydrOXYzine 2020-0 2021- No [id number] 50mg Take 1 Univers (VISTARIL) 7-07 08-26 capsule by it y of 50 mg 00:00: 00:00 mouth 3 [place] capsule 00 :00 (three) Medical times Branch daily as needed for Itching. hydrOXYzine 2020- No [id number] 50mg Take 1 Univers (VISTARIL) 09-12 capsule by it y of 50 mg 00:00: 00:00 mouth 3 [place] capsule 00 :00 (three) Medical times Branch daily as needed for Itching. hydrOXYzine 2020- No [id number] 50mg Take 1 Univers (VISTARIL) 09-12 capsule by it y of 50 mg 00:00: 00:00 mouth 3 [place] capsule 00 :00 (three) Medical times Branch daily as needed for Itching. gabapentin 2020- No [id number] 300mg Take 1 Univers 300 mg 09-12 4105 capsule by ity of capsule 00:00: 04:59 mouth 3 [place] 00 :00 (three) Medical times Branch daily for 15 days. gabapentin 2020-2020- No [id number] 300mg Take 1 Univers 300 mg 09-12 4105 capsule by ity of capsule 00:00: 04:59 mouth 3 [place] 00 :00 (three) Medical times Branch daily for 15 days. gabapentin 2020- No [id number] 300mg Take 1 [facility] 300 mg 09-12 4105 capsule by ity of capsule 00:00: 04:59 mouth 3 [place] 00 :00 (three) Medical times Branch daily for 15 days. gabapentin 2020- No [id number] 300mg Take 1 [facility] 300 mg 09-12 4105 capsule by ity of capsule 00:00: 04:59 mouth 3 [place] 00 :00 (three) Medical times Branch daily for 15 days. gabapentin 2020-2020- No [id number] 300mg Take 1 [facility] 300 mg 09-12 4105 capsule by ity of capsule 00:00: 04:59 mouth 3 [place] 00 :00 (three) Medical times Branch daily for 15 days. carBAMazepi 2020- Yes [id number] 200mg Take 1 Univers ne 7-06 tablet by ity of (TEGRETOL 00:00: mouth 2 [place] XR) 200 mg 00 (two) Medical 12 hr times Branch tablet daily. carBAMazepi 2020-0 Yes [id number] 200mg Take 1 Univers ne 7-06 tablet by ity of (TEGRETOL 00:00: mouth 2 [place] XR) 200 mg 00 (two) Medical 12 hr times Branch tablet daily. carBAMazepi 2020-0 Yes [id number] 200mg Take 1 Univers ne 7-06 tablet by ity of (TEGRETOL 00:00: mouth 2 [place] XR) 200 mg 00 (two) Medical 12 hr times Branch tablet daily. carBAMazepi 2020-0 Yes [id number] 200mg Take 1 Univers ne 7-06 tablet by ity of (TEGRETOL 00:00: mouth 2 [place] XR) 200 mg 00 (two) Medical 12 hr times Branch tablet daily. carBAMazepi 2020-0 Yes [id number] 200mg Take 1 Univers ne 7-06 tablet by ity of (TEGRETOL 00:00: mouth 2 [place] XR) 200 mg 00 (two) Medical 12 hr times Branch tablet daily. carBAMazepi 2020-0 Yes [id number] 200mg Take 1 Univers ne 7-06 tablet by ity of (TEGRETOL 00:00: mouth 2 [place] XR) 200 mg 00 (two) Medical 12 hr times Branch tablet daily. carBAMazepi 2020-0 Yes [id number] 200mg Take 1 Univers ne 7-06 tablet by ity of (TEGRETOL 00:00: mouth 2 [place] XR) 200 mg 00 (two) Medical 12 hr times Branch tablet daily. carBAMazepi 2020-0 2020- No [id number] 200mg Take 1 Univers ne 7- 07-26 tablet by ity of (TEGRETOL 00:00: 00:00 mouth 2 [place] XR[place] 200 mg 00 :00 (two) Medical 12 hr times Branch tablet daily. carBAMazepi 2020-0 2020- No [id number] 200mg Take 1 Univers ne 7-06 07-26 tablet by ity of (TEGRETOL 00:00: 00:00 mouth 2 [place] XR[place] 200 mg 00 :00 (two) Medical 12 hr times Branch tablet daily. carBAMazepi 2020-0 2020- No [id number] 200mg Take 1 Univers ne 7-06 07-26 tablet by ity of (TEGRETOL 00:00: 00:00 mouth 2 [place] XR[place] 200 mg 00 :00 (two) Medical 12 hr times Branch tablet daily. lacosamide 2020-2020- No 100mg 100 mg, Un [place] (VIMPAT) 6-25 06-25 Oral, ity of tablet 100 18:45: 18:43 ONCE, 1 [place] as mg 00 :00 dose, Fri Medical 08/31/20 at Branch 1345, Routine
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 Branch busPIRone 2020-0 Yes 10mg Take 10 mg [facility] [place] 10 mg 6-25 by mouth 2 ity of tablet 18:41: (two) [place] 13 times Medical daily. Branch busPIRone 2020-0 Yes 10mg Take 10 mg Un [place] 10 mg 6-25 by mouth 2 ity of tablet 18:41: (two) [place] 13 times Medical daily. Branch busPIRone 2020-0 Yes 10mg Take 10 mg Un [place] 10 mg 6-25 by mouth 2 ity of tablet 18:41: (two) [place] 13 times Medical daily. Branch busPIRone 2020-0 Yes 10mg Take 10 mg Un [place] 10 mg 6-25 by mouth 2 ity of tablet 18:41: (two) [place] 13 times Medical daily. Branch busPIRone 2020-0 Yes 10mg Take 10 mg Un [place] 10 mg 6-25 by mouth 2 ity of tablet 18:41: (two) [place] 13 times Medical daily. Branch busPIRone 2020-0 Yes 10mg Take 10 mg Un [place] 10 mg 6-25 by mouth 2 ity of tablet 18:41: (two) [place] 13 times Medical daily. Branch busPIRone 2020-0 Yes 10mg Take 10 mg Un [place] 10 mg 6-25 by mouth 2 ity of tablet 18:41: (two) [place] 13 times Medical daily. Branch LITHIUM 2020-0 Yes Take by Univer s CARBONATE 6-25 mouth. ity of ORAL 18:41: [place] 12 Medical Branch LITHIUM 2020-0 Yes Take by Univer s CARBONATE 6-25 mouth. ity of ORAL 18:41: [address] LITHIUM Yes Take by Univer s CARBONATE 6-25 mouth. ity of ORAL 18:41: [address] LITHIUM Yes Take by Univer s CARBONATE 6-25 mouth. ity of ORAL 18:41: [address] LITHIUM Yes Take by Univer s CARBONATE 6-25 mouth. ity of ORAL 18:41: [address] LITHIUM Yes Take by Univer s CARBONATE 6-25 mouth. ity of ORAL 18:41: [address] LITHIUM Yes Take by Univer s CARBONATE 6-25 mouth. ity of ORAL 18:41: [address] LITHIUM Yes Take by Univer s CARBONATE 6-25 mouth. ity of ORAL 18:41: [address] Lacosamide Yes [id number] 100mg Take 1 Univers (VIMPAT) 6-25 tablet by ity of 100 mg 00:00: mouth [place] tablet 00 every 12 Medical (twelve) Branch hours. Lacosamide 2020- No [id number] 100mg Take 1 Univers (VIMPAT) 6-25 07-06 tablet by ity o f 100 mg 00:00: 00:00 mouth [place] tablet 00 :00 every 12 Medical (twelve) Branch hours. acetaminoph 2020- No 1000mg 1,000 mg, Univers en 6-24 06-24 Oral, ity of (TYLENOL) 03:15: 02:16 ONCE, 1 [place] tablet 00 :00 dose, Wed Medical 1,000 mg 08/29/20 at [facility] h 2215, SHAYNA ibuprofen 0 Yes [id number] 600mg Take 1 [facility] 600 mg 6-23 tablet by ity of tablet 00:00: mouth [place] 00 every 6 Medical (six) Branch hours as needed for Pain (scale 4-6). benzonatate 0 Yes [id number] 200mg Take 1 [facility] 200 mg 6-23 capsule by ity of capsule 00:00: mouth 3 [place] 00 (three) Medical times Branch daily as needed for Cough for up to 20 doses. ondansetron 0 Yes [id number] 4mg Take 1 Univers (ZOFRAN 6-23 tablet by ity of ODT) 4 mg 00:00: mouth [place] disintegrat 00 every 8 Medic al ing tablet (eight) Branch hours as needed for Nausea and Vomiting (N/V). ibuprofen 2020-0 Yes [id number] 600mg Take 1 [facility] 600 mg 6-23 tablet by ity of tablet 00:00: mouth [place] 00 every 6 Medical (six) Branch hours as needed for Pain (scale 4-6). benzonatate 2020-0 Yes [id number] 200mg Take 1 [facility] 200 mg 6-23 capsule by ity of capsule 00:00: mouth 3 [place] 00 (three) Medical times Branch daily as needed for Cough for up to 20 doses. ondansetron 2020-0 Yes [id number] 4mg Take 1 [facility] (ZOFRAN 6-23 tablet by ity of ODT) 4 mg 00:00: mouth [place] disintegrat 00 every 8 Medic al ing tablet (eight) Branch hours as needed for Nausea and Vomiting (N/V). ibuprofen 2020-0 Yes [id number] 600mg Take 1 [facility] 600 mg 6-23 tablet by ity of tablet 00:00: mouth [place] 00 every 6 Medical (six) Branch hours as needed for Pain (scale 4-6). benzonatate 2020-0 Yes [id number] 200mg Take 1 [facility] 200 mg 6-23 capsule by ity of capsule 00:00: mouth 3 [place] 00 (three) Medical times Branch daily as needed for Cough for up to 20 doses. ondansetron 2020-0 Yes [id number] 4mg Take 1 Univers (ZOFRAN 6-23 tablet by ity of ODT) 4 mg 00:00: mouth [place] disintegrat 00 every 8 Medic al ing tablet (eight) Branch hours as needed for Nausea and Vomiting (N/V). ibuprofen 1-0 Yes [id number] 600mg Take 1 [facility] 600 mg 6-23 tablet by ity of tablet 00:00: mouth [place] 00 every 6 Medical (six) Branch hours as needed for Pain (scale 4-6). benzonatate 2021-0 Yes [id number] 200mg Take 1 [facility] 200 mg 6-23 capsule by ity of capsule 00:00: mouth 3 [place] 00 (three) Medical times Branch daily as needed for Cough for up to 20 doses. ondansetron 2021-0 Yes [id number] 4mg Take 1 Univers (ZOFRAN 6-23 tablet by ity of ODT) 4 mg 00:00: mouth [place] disintegrat 00 every 8 Medic al ing tablet (eight) Branch hours as needed for Nausea and Vomiting (N/V). ibuprofen 1-0 Yes [id number] 600mg Take 1 [facility] 600 mg 6-23 tablet by ity of tablet 00:00: mouth [place] 00 every 6 Medical (six) Branch hours as needed for Pain (scale 4-6). benzonatate 2021-0 Yes [id number] 200mg Take 1 [facility] 200 mg 6-23 capsule by ity of capsule 00:00: mouth 3 [place] 00 (three) Medical times Branch daily as needed for Cough for up to 20 doses. ondansetron 2021-0 Yes [id number] 4mg Take 1 Univers (ZOFRAN 6-23 tablet by ity of ODT) 4 mg 00:00: mouth [place] disintegrat 00 every 8 Medic al ing tablet (eight) Branch hours as needed for Nausea and Vomiting (N/V). ibuprofen 1-0 Yes [id number] 600mg Take 1 [facility] 600 mg 6-23 tablet by ity of tablet 00:00: mouth [place] 00 every 6 Medical (six) Branch hours as needed for Pain (scale 4-6). benzonatate 2021-0 Yes [id number] 200mg Take 1 [facility] 200 mg 6-23 capsule by ity of capsule 00:00: mouth 3 [place] 00 (three) Medical times Branch daily as needed for Cough for up to 20 doses. ondansetron 2021-0 Yes [id number] 4mg Take 1 Univers (ZOFRAN 6-23 tablet by ity of ODT) 4 mg 00:00: mouth [place] disintegrat 00 every 8 Medic al ing tablet (eight) Branch hours as needed for Nausea and Vomiting (N/V). ibuprofen 2021-0 Yes [id number] 600mg Take 1 [facility] 600 mg 6-23 tablet by ity of tablet 00:00: mouth [place] 00 every 6 Medical (six) Branch hours as needed for Pain (scale 4-6). benzonatate 2021-0 Yes [id number] 200mg Take 1 Univers 200 mg 6-23 capsule by ity of capsule 00:00: mouth 3 [place] 00 (three) Medical times Branch daily as needed for Cough for up to 20 doses. ondansetron 2021-0 Yes [id number] 4mg Take 1 Univers (ZOFRAN 6-23 tablet by ity of ODT) 4 mg 00:00: mouth [place] disintegrat 00 every 8 Medic al ing tablet (eight) Branch hours as needed for Nausea and Vomiting (N/V). ibuprofen 1-0 Yes [id number] 600mg Take 1 [facility] 600 mg 6-23 tablet by ity of tablet 00:00: mouth [place] 00 every 6 Medical (six) Branch hours as needed for Pain (scale 4-6). benzonatate 2021-0 Yes [id number] 200mg Take 1 [facility] 200 mg 6-23 capsule by ity of capsule 00:00: mouth 3 [place] 00 (three) Medical times Branch daily as needed for Cough for up to 20 doses. ondansetron 1-0 Yes [id number] 4mg Take 1 Univers (ZOFRAN 6-23 tablet by ity of ODT) 4 mg 00:00: mouth [place] disintegrat 00 every 8 Medic al ing tablet (eight) Branch hours as needed for Nausea and Vomiting (N/V). ibuprofen 1-0 Yes [id number] 600mg Take 1 [facility] 600 mg 6-23 tablet by ity of tablet 00:00: mouth [place] 00 every 6 Medical (six) Branch hours as needed for Pain (scale 4-6). benzonatate 2021-0 Yes [id number] 200mg Take 1 [facility] 200 mg 6-23 capsule by ity of capsule 00:00: mouth 3 [place] 00 (three) Medical times Branch daily as needed for Cough for up to 20 doses. ondansetron 1-0 Yes [id number] 4mg Take 1 Univers (ZOFRAN 6-23 tablet by ity of ODT) 4 mg 00:00: mouth [place] disintegrat 00 every 8 Medic al ing tablet (eight) Branch hours as needed for Nausea and Vomiting (N/V). ibuprofen 2021-0 Yes [id number] 600mg Take 1 [facility] 600 mg 6-23 tablet by ity of tablet 00:00: mouth [place] 00 every 6 Medical (six) Branch hours as needed for Pain (scale 4-6). benzonatate 2021-0 Yes [id number] 200mg Take 1 [facility] 200 mg 6-23 capsule by ity of capsule 00:00: mouth (three) Medical times Branch daily as needed for Cough for up to 20 doses. ondansetron 2021-0 Yes [id number] 4mg Take 1 Univers (ZOFRAN 6-23 tablet by ity of ODT) 4 mg 00:00: mouth [place] disintegrat 00 every 8 Medic al ing tablet (eight) Branch hours as needed for Nausea and Vomiting (N/V). ibuprofen 2020-0 Yes [id number] 600mg Take 1 [facility] 600 mg 6-23 tablet by ity of tablet 00:00: mouth [place] 00 every 6 Medical (six) Branch hours as needed for Pain (scale 4-6). benzonatate 2020-0 Yes [id number] 200mg Take 1 [facility] 200 mg 6-23 capsule by ity of capsule 00:00: mouth (three) Medical times Branch daily as needed for Cough for up to 20 doses. ondansetron 2020-0 Yes [id number] 4mg Take 1 Univers (ZOFRAN 6-23 tablet by ity of ODT) 4 mg 00:00: mouth [place] disintegrat 00 every 8 Medic al ing tablet (eight) Branch hours as needed for Nausea and Vomiting (N/V). benzonatate 2020-0 Yes [id number] 200mg Take 1 [facility] 200 mg 6-23 capsule by ity of capsule 00:00: mouth (three) Medical times Branch daily as needed for Cough for up to 20 doses. benzonatate 1-0 Yes [id number] 200mg Take 1 [facility] 200 mg 6-23 capsule by ity of capsule 00:00: mouth (three) Medical times Branch daily as needed for Cough for up to 20 doses. benzonatate 2020-0 Yes [id number] 200mg Take 1 [facility] 200 mg 6-23 capsule by ity of capsule 00:00: mouth (three) Medical times Branch daily as needed for Cough for up to 20 doses. benzonatate 2021-0 Yes [id number] 200mg Take 1 [facility] 200 mg 6-23 capsule by ity of capsule 00:00: mouth (three) Medical times Branch daily as needed for Cough for up to 20 doses. benzonatate 2021-0 Yes [id number] 200mg Take 1 [facility] 200 mg 6-23 capsule by ity of capsule 00:00: mouth 3 (three) Medical times Branch daily as needed for Cough for up to 20 doses. benzonatate 2020-0 Yes [id number] 200mg Take 1 [facility] 200 mg 6-23 capsule by ity of capsule 00:00: mouth 3 (three) Medical times Branch daily as needed for Cough for up to 20 doses. benzonatate 2020-0 Yes [id number] 200mg Take 1 [facility] 200 mg 6-23 capsule by ity of capsule 00:00: mouth (three) Medical times Branch daily as needed for Cough for up to 20 doses. benzonatate 2020-0 Yes [id number] 200mg Take 1 [facility] 200 mg 6-23 capsule by ity of capsule 00:00: mouth (three) Medical times Branch daily as needed for Cough for up to 20 doses. benzonatate 2020-0 Yes [id number] 200mg Take 1 [facility] 200 mg 6-23 capsule by ity of capsule 00:00: mouth (three) Medical times Branch daily as needed for Cough for up to 20 doses. benzonatate 2020-0 Yes [id number] 200mg Take 1 [facility] 200 mg 6-23 capsule by ity of capsule 00:00: mouth (three) Medical times Branch daily as needed for Cough for up to 20 doses. benzonatate 2020-0 Yes [id number] 200mg Take 1 [facility] 200 mg 6-23 capsule by ity of capsule 00:00: mouth (three) Medical times Branch daily as needed for Cough for up to 20 doses. benzonatate 2020-0 2020- No [id number] 200mg Take 1 [facility] 200 mg 6-23 08-26 capsule by ity of capsule 00:00: 00:00 mouth 3 00 : (three) Medical times Branch daily as needed for Cough for up to 20 doses. benzonatate 2020-0 202- No [id number] 200mg Take 1 [facility] 200 mg 6-23 08-26 capsule by ity of capsule 00:00: 00:00 mouth 3 00 : (three) Medical times Branch daily as needed for Cough for up to 20 doses. benzonatate 2020-0 2021- No [id number] 200mg Take 1 [facility] 200 mg 6-23 08-26 capsule by ity of capsule 00:00: 00:00 mouth 3 [place] 00 :00 (three) Medical times Branch daily as needed for Cough for up to 20 doses. ibuprofen 2020- No [id number] 600mg Take 1 [facility] 600 mg 08-2930 tablet by ity of tablet 00:00: 00:00 mouth [place] 00 :00 every 6 Medical (six) Branch hours as needed for Pain (scale 4-6). ondansetron 2020- No [id number] 4mg Take 1 Univers (ZOFRAN 08-2930 tablet by ity of ODT) 4 mg 00:00: 00:00 mouth [place] disintegrat 00 :00 every 8 Medic al ing tablet (eight) Branch hours as needed for Nausea and Vomiting (N/V). tamsulosin Yes .4mg 0.4 mg, Univ ers (FLOMAX) 05-14 Oral, ity of capsule 0.4 15:00: DAILY, [place] mg 00 First dose Medical on Thu Branch 05/14/20 at 0900, Until Discontinu ed, Routine cefTRIAXone 2020- No 1000mg 1,000 mg, Univers (ROCEPHIN) 05-14-08 IV ity of 1,000 mg in 03:45: 03:13 [place], [place] NaCl 0.9% 00 :00 ONCE, 1 Medical (NS) 50 mL dose, [facility] ch MINI-BAG 05/13/20 at 2145, 50 mL
Reas on for Anti-Infec tive: Documented Infection< br>Documen con Infection Site: Urine
D uration of Therapy: Other (see Comments) NaCl 0.9% 2020- No 1000mL at 999 Uni vers (NS) bolus 05-14-08 mL/hr, ity of infusion 02:15: 02:38 1,000 mL, [place] as 1,000 mL 00 :00 IV Medical Infusion, Branch ONCE, 1 dose, [place] 05/13/20 at 2015, STAT ketorolac 2020- No 30mg 30 mg, Unive rs (TORADOL) 05-14 03-08 Slow IV ity of injection 01:30: 01:28 [place], [place] 30 mg 00 :00 ONCE, 1 Medical dose, [place] Branch 05/13/20 at 1930, SHAYNA
[facility] Restricted medication : [place] PAZ ibuprofen 2020-0 Yes [id number] 600mg Take 1 U nivers 600 mg 3-07 tablet by ity of tablet 00:00: mouth [place] 00 every 6 Medical (six) Branch hours as needed for Pain (scale 4-6). ondansetron 2020-0 Yes [id number] 4mg Take 1 Univers (ZOFRAN 3-07 tablet by ity of ODT) 4 mg 00:00: mouth [place] disintegrat 00 every 8 Medic al ing tablet (eight) Branch hours as needed for Nausea and Vomiting (N/V). ibuprofen 2020-0 Yes [id number] 600mg Take 1 U nivers 600 mg 3-07 tablet by ity of tablet 00:00: mouth [place] 00 every 6 Medical (six) Branch hours as needed for Pain (scale 4-6). ondansetron 2020-0 Yes [id number] 4mg Take 1 Univers (ZOFRAN 3-07 tablet by ity of ODT) 4 mg 00:00: mouth [place] disintegrat 00 every 8 Medic al ing tablet (eight) Branch hours as needed for Nausea and Vomiting (N/V). ibuprofen 2020-0 Yes [id number] 600mg Take 1 U nivers 600 mg 3-07 tablet by ity of tablet 00:00: mouth [place] 00 every 6 Medical (six) Branch hours as needed for Pain (scale 4-6). ondansetron 2020-0 Yes [id number] 4mg Take 1 Univers (ZOFRAN 3-07 tablet by ity of ODT) 4 mg 00:00: mouth [place] disintegrat 00 every 8 Medic al ing tablet (eight) Branch hours as needed for Nausea and Vomiting (N/V). ibuprofen 2020-0 Yes [id number] 600mg Take 1 U nivers 600 mg 3-07 tablet by ity of tablet 00:00: mouth [place] 00 every 6 Medical (six) Branch hours as needed for Pain (scale 4-6). ondansetron 202-0 Yes [id number] 4mg Take 1 Univers (ZOFRAN 3-07 tablet by ity of ODT) 4 mg 00:00: mouth [place] disintegrat 00 every 8 Medic al ing tablet (eight) Branch hours as needed for Nausea and Vomiting (N/V). ibuprofen 2021-0 Yes [id number] 600mg Take 1 U nivers 600 mg 3-07 tablet by ity of tablet 00:00: mouth [place] 00 every 6 Medical (six) Branch hours as needed for Pain (scale 4-6). ondansetron 202-0 Yes [id number] 4mg Take 1 Univers (ZOFRAN 3-07 tablet by ity of ODT) 4 mg 00:00: mouth [place] disintegrat 00 every 8 Medic al ing tablet (eight) Branch hours as needed for Nausea and Vomiting (N/V). ibuprofen 2020-0 Yes [id number] 600mg Take 1 U nivers 600 mg 3-07 tablet by ity of tablet 00:00: mouth [place] 00 every 6 Medical (six) Branch hours as needed for Pain (scale 4-6). ondansetron 2020-0 Yes [id number] 4mg Take 1 Univers (ZOFRAN 3-07 tablet by ity of ODT) 4 mg 00:00: mouth [place] disintegrat 00 every 8 Medic al ing tablet (eight) Branch hours as needed for Nausea and Vomiting (N/V). ibuprofen 2020-0 Yes [id number] 600mg Take 1 U nivers 600 mg 3-07 tablet by ity of tablet 00:00: mouth [place] 00 every 6 Medical (six) Branch hours as needed for Pain (scale 4-6). ondansetron 2020-0 Yes [id number] 4mg Take 1 Univers (ZOFRAN 3-07 tablet by ity of ODT) 4 mg 00:00: mouth [place] disintegrat 00 every 8 Medic al ing tablet (eight) Branch hours as needed for Nausea and Vomiting (N/V). ibuprofen 2021-0 Yes [id number] 600mg Take 1 U nivers 600 mg 3-07 tablet by ity of tablet 00:00: mouth [place] 00 every 6 Medical (six) Branch hours as needed for Pain (scale 4-6). ondansetron 2021-0 Yes [id number] 4mg Take 1 Univers (ZOFRAN 3-07 tablet by ity of ODT) 4 mg 00:00: mouth [place] disintegrat 00 every 8 Medic al ing tablet (eight) Branch hours as needed for Nausea and Vomiting (N/V). ibuprofen 2021-0 Yes [id number] 600mg Take 1 U nivers 600 mg 3-07 tablet by ity of tablet 00:00: mouth [place] 00 every 6 Medical (six) Branch hours as needed for Pain (scale 4-6). ondansetron 2020-0 Yes [id number] 4mg Take 1 Univers (ZOFRAN 3-07 tablet by ity of ODT) 4 mg 00:00: mouth [place] disintegrat 00 every 8 Medic al ing tablet (eight) Branch hours as needed for Nausea and Vomiting (N/V). ibuprofen 2020-0 Yes [id number] 600mg Take 1 U nivers 600 mg 3-07 tablet by ity of tablet 00:00: mouth [place] 00 every 6 Medical (six) Branch hours as needed for Pain (scale 4-6). ondansetron 2020-0 Yes [id number] 4mg Take 1 Univers (ZOFRAN 3-07 tablet by ity of ODT) 4 mg 00:00: mouth [place] disintegrat 00 every 8 Medic al ing tablet (eight) Branch hours as needed for Nausea and Vomiting (N/V). ibuprofen 2020-0 Yes [id number] 600mg Take 1 U nivers 600 mg 3-07 tablet by ity of tablet 00:00: mouth [place] 00 every 6 Medical (six) Branch hours as needed for Pain (scale 4-6). ondansetron 2020-0 Yes [id number] 4mg Take 1 Univers (ZOFRAN 3-07 tablet by ity of ODT) 4 mg 00:00: mouth [place] disintegrat 00 every 8 Medic al ing tablet (eight) Branch hours as needed for Nausea and Vomiting (N/V). ibuprofen 2020-0 Yes [id number] 600mg Take 1 U nivers 600 mg 3-07 tablet by ity of tablet 00:00: mouth [place] 00 every 6 Medical (six) Branch hours as needed for Pain (scale 4-6). ondansetron 2021-0 Yes [id number] 4mg Take 1 [facility] (ZOFRAN 3-07 tablet by ity of ODT) 4 mg 00:00: mouth [place] disintegrat 00 every 8 Medic al ing tablet (eight) Branch hours as needed for Nausea and Vomiting (N/V). ibuprofen 2020-0 Yes [id number] 600mg Take 1 [facility] 600 mg 3-07 tablet by ity of tablet 00:00: mouth [place] 00 every 6 Medical (six) Branch hours as needed for Pain (scale 4-6). ondansetron 2020-0 Yes [id number] 4mg Take 1 [facility] (ZOFRAN 3-07 tablet by ity of ODT) 4 mg 00:00: mouth [place] disintegrat 00 every 8 Medic al ing tablet (eight) Branch hours as needed for Nausea and Vomiting (N/V). ibuprofen 2020-0 Yes [id number] 600mg Take 1 [facility] 600 mg 3-07 tablet by ity of tablet 00:00: mouth [place] 00 every 6 Medical (six) Branch hours as needed for Pain (scale 4-6). ondansetron 2020-0 Yes [id number] 4mg Take 1 [facility] (ZOFRAN 3-07 tablet by ity of ODT) 4 mg 00:00: mouth [place] disintegrat 00 every 8 Medic al ing tablet (eight) Branch hours as needed for Nausea and Vomiting (N/V). ibuprofen 2020-0 Yes [id number] 600mg Take 1 [facility] 600 mg 3-07 tablet by ity of tablet 00:00: mouth [place] 00 every 6 Medical (six) Branch hours as needed for Pain (scale 4-6). ondansetron 2020-0 Yes [id number] 4mg Take 1 [facility] (ZOFRAN 3-07 tablet by ity of ODT) 4 mg 00:00: mouth [place] disintegrat 00 every 8 Medic al ing tablet (eight) Branch hours as needed for Nausea and Vomiting (N/V). ibuprofen 2020-0 Yes [id number] 600mg Take 1 [facility] 600 mg 3-07 tablet by ity of tablet 00:00: mouth [place] 00 every 6 Medical (six) Branch hours as needed for Pain (scale 4-6). ondansetron 2020-0 Yes [id number] 4mg Take 1 [facility] (ZOFRAN 3-07 tablet by ity of ODT) 4 mg 00:00: mouth [place] disintegrat 00 every 8 Medic al ing tablet (eight) Branch hours as needed for Nausea and Vomiting (N/V). ibuprofen 2020-0 Yes [id number] 600mg Take 1 [facility] 600 mg 3-07 tablet by ity of tablet 00:00: mouth [place] 00 every 6 Medical (six) Branch hours as needed for Pain (scale 4-6). ibuprofen 2021-0 Yes [id number] 600mg Take 1 [facility] 600 mg 3-07 tablet by ity of tablet 00:00: mouth [place] 00 every 6 Medical (six) Branch hours as needed for Pain (scale 4-6). ibuprofen 2021-0 Yes [id number] 600mg Take 1 [facility] 600 mg 3-07 tablet by ity of tablet 00:00: mouth [place] 00 every 6 Medical (six) Branch hours as needed for Pain (scale 4-6). ibuprofen 202-0 Yes [id number] 600mg Take 1 [facility] 600 mg 3-07 tablet by ity of tablet 00:00: mouth [place] 00 every 6 Medical (six) Branch hours as needed for Pain (scale 4-6). ibuprofen 2021-0 Yes [id number] 600mg Take 1 [facility] 600 mg 3-07 tablet by ity of tablet 00:00: mouth [place] 00 every 6 Medical (six) Branch hours as needed for Pain (scale 4-6). ibuprofen 2020-0 Yes [id number] 600mg Take 1 [facility] 600 mg 3-07 tablet by ity of tablet 00:00: mouth [place] 00 every 6 Medical (six) Branch hours as needed for Pain (scale 4-6). ibuprofen 2020-0 Yes [id number] 600mg Take 1 [facility] 600 mg 3-07 tablet by ity of tablet 00:00: mouth [place] 00 every 6 Medical (six) Branch hours as needed for Pain (scale 4-6). ibuprofen 2021-0 Yes [id number] 600mg Take 1 [facility] 600 mg 3-07 tablet by ity of tablet 00:00: mouth [place] 00 every 6 Medical (six) Branch hours as needed for Pain (scale 4-6). ibuprofen 2021-0 Yes [id number] 600mg Take 1 [facility] 600 mg 3-07 tablet by ity of tablet 00:00: mouth [place] 00 every 6 Medical (six) Branch hours as needed for Pain (scale 4-6). ibuprofen 2021-0 Yes [id number] 600mg Take 1 [facility] 600 mg 3-07 tablet by ity of tablet 00:00: mouth [place] 00 every 6 Medical (six) Branch hours as needed for Pain (scale 4-6). ibuprofen 2021-0 Yes [id number] 600mg Take 1 [facility] 600 mg 3-07 tablet by ity of tablet 00:00: mouth [place] 00 every 6 Medical (six) Branch hours as needed for Pain (scale 4-6). ibuprofen 2020- No [id number] 600mg Take 1 [facility] 600 mg 05-13 tablet by ity of tablet 00:00: 00:00 mouth [place] 00 :00 every 6 Medical (six) Branch hours as needed for Pain (scale 4-6). ibuprofen 2020- No [id number] 600mg Take 1 [facility] 600 mg 05-13 tablet by ity of tablet 00:00: 00:00 mouth [place] 00 :00 every 6 Medical (six) Branch hours as needed for Pain (scale 4-6). ibuprofen 2020- No [id number] 600mg Take 1 [facility] 600 mg 05-13 tablet by ity of tablet 00:00: 00:00 mouth [place] 00 :00 every 6 Medical (six) Branch hours as needed for Pain (scale 4-6). ondansetron 2020- No [id number] 4mg Take 1 [facility] (ZOFRAN 05-13 tablet by ity of ODT) 4 mg 00:00: 00:00 mouth [place] disintegrat 00 :00 every 8 Medic al ing tablet (eight) Branch hours as needed for Nausea and Vomiting (N/V). cephALEXin 2020- No [id number] 500mg Take 1 [facility] (KEFLEX) 05-13-18 capsule by ity of 500 mg 00:00: 04:59 mouth 3 [place] capsule 00 :00 (three) Medical times Branch daily for 10 days. metroNIDAZO 2019-03- No [id number] 500mg Take 1 [facility] LE 500 mg 03-21 tablet by ity of tablet 00:00: 05:59 mouth 2 [place] 00 :00 (two) Medical times Branch daily for 7 days. metroNIDAZO 2019-03- No [id number] 500mg Take 1 [facility] LE 500 mg 03-21- tablet by ity of tablet 00:00: 05:59 mouth 2 [place] 00 :00 (two) Medical times Branch daily for 7 days. azithromyci 2019-03- No [id number] 1000mg Take 2 [facility] n 500 mg 0-14 10-16 tablets by ity of tablet 00:00: 04:59 mouth [place] 00 :00 daily for Medical 1 day. Branch azithromyci 2019-03 2020- No [id number] 1000mg Take 2 [facility] n 500 mg 0-14 10-16 tablets by ity of tablet 00:00: 04:59 mouth [place] 00 :00 daily for Medical 1 day. Branch fluconazole 2020- No [id number] 150mg Take 1 [facility] (DIFLUCAN) 8-17 08-18 tablet by ity of 150 mg 00:00: 04:59 mouth [place] tablet 00 :00 now for 1 Medical dose. Branch metroNIDAZO 2020- No [id number] 500mg Take 1 [facility] LE (FLAGYL) 7-22 07-30 tablet by it y of 500 mg 00:00: 04:59 mouth 2 [place] tablet 00 :00 (two) Medical times [place] daily for 7 days. topiramate 2020-0 Yes 100mg Take 100 [facility] (TOPAMAX) 7-21 mg by ity of 100 mg 19:33: mouth. [address] topiramate 2020-0 Yes 100mg Take 100 [facility] [place] (TOPAMAX) 7-21 mg by ity of 100 mg 19:33: mouth. [address] topiramate 2020-0 Yes 100mg Take 100 [facility] [place] (TOPAMAX) 7-21 mg by ity of 100 mg 19:33: mouth. [address] topiramate 2020-0 Yes 100mg Take 100 [facility] [place] (TOPAMAX) 7-21 mg by ity of 100 mg 19:33: mouth. [address] topiramate 2020-0 Yes 100mg Take 100 [facility] [place] (TOPAMAX) 7-21 mg by ity of 100 mg 19:33: mouth. [address] topiramate 2020-0 Yes 100mg Take 100 [facility] [place] (TOPAMAX) 7-21 mg by ity of 100 mg 19:33: mouth. [address] topiramate 2020-0 Yes 100mg Take 100 [facility] [place] (TOPAMAX) 7-21 mg by ity of 100 mg 19:33: mouth. [address] topiramate 2020-0 Yes 100mg Take 100 [facility] [place] (TOPAMAX) 7-21 mg by ity of 100 mg 19:33: mouth. [place] tablet [address] [place] [address] topiramate 2020-0 Yes 100mg Take 100 [facility] [place] (TOPAMAX) 7-21 mg by ity of 100 mg 19:33: mouth. [place] tablet [address] [place] [address] topiramate 2020-0 Yes 100mg Take 100 [facility] [place] (TOPAMAX) 7-21 mg by ity of 100 mg 19:33: mouth. [place] tablet [address] [place] [address] topiramate 2020-0 Yes 100mg Take 100 [facility] [place] (TOPAMAX) 7-21 mg by ity of 100 mg 19:33: mouth. [place] tablet [address] [place] [address] topiramate 2020-0 Yes 100mg Take 100 [facility] [place] (TOPAMAX) 7-21 mg by ity of 100 mg 19:33: mouth. [place] tablet [address] [place] [address] topiramate 2020-0 Yes 100mg Take 100 [facility] [place] (TOPAMAX) 7-21 mg by ity of 100 mg 19:33: mouth. [address] topiramate 2020-0 Yes 100mg Take 100 [facility] [place] (TOPAMAX) 7-21 mg by ity of 100 mg 19:33: mouth. [address] topiramate 2020-0 Yes 100mg Take 100 [facility] [place] (TOPAMAX) 7-21 mg by ity of 100 mg 19:33: mouth. [place] tablet [address] [place] [address] topiramate 2020-0 Yes 100mg Take 100 [facility] [place] (TOPAMAX) 7-21 mg by ity of 100 mg 19:33: mouth. [place] tablet [address] [place] [address] topiramate 2020-0 Yes 100mg Take 100 [facility] [place] (TOPAMAX) 7-21 mg by ity of 100 mg 19:33: mouth. [address] topiramate 2020-0 Yes 100mg Take 100 [facility] [place] (TOPAMAX) 7-21 mg by ity of 100 mg 19:33: mouth. [place] tablet [address] [place] [address] topiramate 2020-0 Yes 100mg Take 100 [facility] [place] (TOPAMAX) 7-21 mg by ity of 100 mg 19:33: mouth. [place] tablet [address] [place] [address] topiramate 2020-0 Yes 100mg Take 100 [facility] [place] (TOPAMAX) 7-21 mg by ity of 100 mg 19:33: mouth. [place] tablet [address] [place] [address] topiramate 2020-0 Yes 100mg Take 100 [facility] [place] (TOPAMAX) 7-21 mg by ity of 100 mg 19:33: mouth. [address] topiramate 2020-0 Yes 100mg Take 100 [facility] [place] (TOPAMAX) 7-21 mg by ity of 100 mg 19:33: mouth. [address] topiramate 2020-0 Yes 100mg Take 100 [facility] [place] (TOPAMAX) 7-21 mg by ity of 100 mg 19:33: mouth. [address] topiramate 2020-0 Yes 100mg Take 100 [facility] [place] (TOPAMAX) 7-21 mg by ity of 100 mg 19:33: mouth. [address] topiramate 2020-0 Yes 100mg Take 100 [facility] [place] (TOPAMAX) 7-21 mg by ity of 100 mg 19:33: mouth. [address] topiramate 2020-0 Yes 100mg Take 100 [facility] [place] (TOPAMAX) 7-21 mg by ity of 100 mg 19:33: mouth. [address] topiramate 2020-0 Yes 100mg Take 100 [facility] [place] (TOPAMAX) 7-21 mg by ity of 100 mg 19:33: mouth. [address] topiramate 2020-0 Yes 100mg Take 100 [place] (TOPAMAX) 7-21 mg by ity of 100 mg 19:33: mouth. [address] topiramate 2020-0 Yes 100mg Take 100 [place] (TOPAMAX) 7-21 mg by ity of 100 mg 19:33: mouth. [address] topiramate 2020-0 Yes 100mg Take 100 [place] (TOPAMAX) 7-21 mg by ity of 100 mg 19:33: mouth. [address] topiramate 2020-0 Yes 100mg Take 100 [place] (TOPAMAX) 7-21 mg by ity of 100 mg 19:33: mouth. [address] topiramate 2020-0 Yes 100mg Take 100 [facility] [place] (TOPAMAX) 7-21 mg by ity of 100 mg 19:33: mouth. [address] topiramate 2020-0 Yes 100mg Take 100 [facility] [place] (TOPAMAX) 7-21 mg by ity of 100 mg 19:33: mouth. [place] tablet 04 Medical Branch topiramate 2020-0 Yes 100mg Take 100 [facility] [place] (TOPAMAX) 6-11 mg by ity of 100 mg 13:24: mouth. [place] tablet 15 Medical Branch topiramate 2020-0 Yes 100mg Take 100 [facility] [place] (TOPAMAX) 6-11 mg by ity of 100 mg 13:24: mouth. [place] tablet 15 Medical Branch montelukast 2020-0 Yes [id number] 10mg Take 1 [facility] 10 mg 6-11 tablet by ity of tablet 00:00: mouth [place] 00 daily. Medical Branch loratadine 2020-0 Yes [id number] 10mg Take 1 [facility] 10 mg 6-11 tablet by ity of tablet 00:00: mouth [place] 00 daily. Medical Branch benzonatate 2020-0 Yes [id number] 100mg Take 1 [facility] 100 mg 6-11 capsule by ity of capsule 00:00: mouth 3 [place] 00 (three) Medical times Branch daily as needed for Cough. montelukast 2020-0 Yes [id number] 10mg Take 1 [facility] 10 mg 6-11 tablet by ity of tablet 00:00: mouth [place] 00 daily. Medical Branch loratadine 2020-0 Yes [id number] 10mg Take 1 [facility] 10 mg 6-11 tablet by ity of tablet 00:00: mouth [place] 00 daily. Medical Branch benzonatate 2020-0 Yes [id number] 100mg Take 1 [facility] 100 mg 6-11 capsule by ity of capsule 00:00: mouth 3 [place] 00 (three) Medical times Branch daily as needed for Cough. montelukast 2020-0 2020- No [id number] 10mg Take 1 [facility] 10 mg 6-11 07-21 tablet by ity of tablet 00:00: 00:00 mouth [place] 00 :00 daily. Medical Branch loratadine 2020-0 2020- No [id number] 10mg Take 1 [facility] 10 mg 6-11 07-21 tablet by ity of tablet 00:00: 00:00 mouth [place] 00 :00 daily. Medical Branch benzonatate 2020-0 2020- No [id number] 100mg Take 1 [facility] 100 mg 6-11 07-21 capsule by ity of capsule 00:00: 00:00 mouth 3 [place] 00 :00 (three) Medical times Branch daily as needed for Cough. montelukast 2020-0 2020- No [id number] 10mg Take 1 [facility] 10 mg 08-17 tablet by ity of tablet 00:00: 00:00 mouth [place] 00 :00 daily. Medical Branch loratadine 2019- No [id number] 10mg Take 1 [facility] 10 mg 08-17 tablet by ity of tablet 00:00: 00:00 mouth [place] 00 :00 daily. Medical Branch benzonatate 2019- No [id number] 100mg Take 1 [facility] 100 mg 08-17 capsule by ity of capsule 00:00: 00:00 mouth 3 [place] 00 :00 (three) Medical times [place] daily as needed for Cough. QUEtiapine 2020- No TAKE 1 [facility] ers 25 mg 08-12 TABLET BY ity of tablet 00:00: 00:00 [place]TH [place]CE [place] 00 [place] DA[place] AT [facility] BEDTIME Branch QUEtiapine 2019- No TAKE 1 [facility] ers 25 mg 08-12 TABLET BY ity of tablet 00:00: 00:00 M[place]TH [place]CE [place] 00 :[place] DA[place] [facility] iohexol 2019- No 120mL 120 mL, Unive rs (OMNIPAQUE 07-28 Intravenou it y of 350 04:15: 04:15 s, ONCE, 1 [place] BULK-150 00 :00 dose, [facility]) 07/28/19 at [place] injection 2315, 120 mL Routine guaiFENesin 2019- No 200mg 200 mg, U nivers 100 mg/5 mL 07-27 Oral, ity of solution 23:30: 00:27 ONCE, 1 [place] 200 mg 00 :00 dose, [facility] 07/28/19 at Branch 1845, [place] albuterol 2020- No 2{puff} 2 Puff, U nivers (VENTOLIN) 07-27 Inhalation it y of inhaler 2 23:30: 00:28 , ONCE, 1 [place] Puff 00 :00 dose, [facility] 07/28/19 at [place] [address], SHAY[place]
Is this order for a patient with suspected or confirmed COVID-19 infection? Yes dextrometho 2019-0 Yes [id number] 10mL Take 10 mL [facility] rphan-guaif 5-21 by mouth ity of enesin 00:00: every 8 [place] 10-100 mg/5 00 (eight) Medic al mL solution hours as Bran ch needed for Cough. albuterol 2020-0 Yes [id number] 2{puff} Inhale 2 [facility] 90 5-21 Puffs ity of mcg/actuati 00:00: every 4 [place] on inhaler 00 (four) Medical hours as Branch needed for Wheezing, Shortness of Breath or Chest tightness. dextrometho 2020-0 Yes [id number] 10mL Take 10 mL [facility] rphan-guaif 5-21 by mouth ity of enesin 00:00: every 8 [place] 10-100 mg/5 00 (eight) Medic al mL solution hours as Bran ch needed for Cough. albuterol 2019-0 Yes [id number] 2{puff} Inhale 2 [facility] 90 5-21 Puffs ity of mcg/actuati 00:00: every 4 [place] on inhaler 00 (four) Medical hours as Branch needed for Wheezing, Shortness of Breath or Chest tightness. dextrometho 2019-0 Yes [id number] 10mL Take 10 mL [facility] rphan-guaif 5-21 by mouth ity of enesin 00:00: every 8 [place] 10-100 mg/5 00 (eight) Medic al mL solution hours as Bran ch needed for Cough. albuterol 2019-0 Yes [id number] 2{puff} Inhale 2 [facility] 90 5-21 Puffs ity of mcg/actuati 00:00: every 4 [place] on inhaler 00 (four) Medical hours as Branch needed for Wheezing, Shortness of Breath or Chest tightness. dextrometho 2020-0 Yes [id number] 10mL Take 10 mL [facility] rphan-guaif 5-21 by mouth ity of enesin 00:00: every 8 [place] 10-100 mg/5 00 (eight) Medic al mL solution hours as Bran ch needed for Cough. albuterol 2020-0 Yes [id number] 2{puff} Inhale 2 [facility] 90 5-21 Puffs ity of mcg/actuati 00:00: every 4 [place] on inhaler 00 (four) Medical hours as Branch needed for Wheezing, Shortness of Breath or Chest tightness. dextrometho 2020-0 Yes [id number] 10mL Take 10 mL [facility] rphan-guaif 5-21 by mouth ity of enesin 00:00: every 8 [place] 10-100 mg/5 00 (eight) Medic al mL solution hours as Bran ch needed for Cough. albuterol Yes [id number] 2{puff} Inhale 2 [facility] 90 5-21 Puffs ity of mcg/actuati 00:00: every 4 [place] on inhaler 00 (four) Medical hours as Branch needed for Wheezing, Shortness of Breath or Chest tightness. dextrometho 2019-2019- No [id number] 10mL Take 10 mL [facility] rphan-guaif 5-21 07-21 by mouth ity of enesin 00:00: 00:00 every 8 [place] 10-100 mg/5 00 :00 (eight) Medic al mL solution hours as Bran ch needed for Cough. albuterol 2020- No [id number] 2{puff} Inhale 2 [facility] 90 5-21 07-21 Puffs ity of mcg/actuati 00:00: 00:00 every 4 [place] on inhaler 00 :00 (four) Medical hours as Branch needed for Wheezing, Shortness of Breath or Chest tightness. dextrometho 2019- 2020- No [id number] 10mL Take 10 mL [facility] rphan-guaif 5-21 07-21 by mouth ity of enesin 00:00: 00:00 every 8 [place] 10-100 mg/5 00 :00 (eight) Medic al mL solution hours as Bran ch needed for Cough. albuterol 2020- No [id number] 2{puff} Inhale 2 [facility] 90 5-21 07-21 Puffs ity of mcg/actuati 00:00: 00:00 every 4 [place] on inhaler 00 :00 (four) Medical hours as Branch needed for Wheezing, Shortness of Breath or Chest tightness. predniSONE 2019- 2020- No [id number] 30mg Take 3 [facility] 10 mg 5-21 05-26 tablets by ity of tablet 00:00: 04:59 mouth [place] 00 :00 daily for Medical 4 days. Branch predniSONE 2019- 2020- No [id number] 30mg Take 3 [facility] 10 mg 5-21 05-26 tablets by ity of tablet 00:00: 04:59 mouth [place] 00 :00 daily for Medical 4 days. Branch levonorgest 2019- Yes [id number] 1{tbl} Take 1 [facility] rel-ethinyl 5-11 tablet by ity of estradiol 00:00: mouth [place] (SRONYX) 00 daily. Medical 0.1-20 Branch mg-mcg per tablet levonorgest 2020-0 Yes [id number] 1{tbl} Take 1 [facility] rel-ethinyl 5-11 tablet by ity of estradiol 00:00: mouth [place] (SRONYX) 00 daily. Medical 0.1-20 Branch mg-mcg per tablet levonorgest 2020-0 Yes [id number] 1{tbl} Take 1 [facility] rel-ethinyl 5-11 tablet by ity of estradiol 00:00: mouth [place] (SRONYX) 00 daily. Medical 0.1-20 Branch mg-mcg per tablet levonorgest 2020-0 Yes [id number] 1{tbl} Take 1 [facility] rel-ethinyl 5-11 tablet by ity of estradiol 00:00: mouth [place] (SRONYX) 00 daily. Medical 0.1-20 Branch mg-mcg per tablet levonorgest 2020-0 Yes [id number] 1{tbl} Take 1 [facility] rel-ethinyl 5-11 tablet by ity of estradiol 00:00: mouth [place] (SRONYX) 00 daily. Medical 0.1-20 Branch mg-mcg per tablet levonorgest 2020-0 Yes [id number] 1{tbl} Take 1 [facility] rel-ethinyl 5-11 tablet by ity of estradiol 00:00: mouth [place] (SRONYX) 00 daily. Medical 0.1-20 Branch mg-mcg per tablet levonorgest 2020-0 2020- No [id number] 1{tbl} Take 1 [facility] rel-ethinyl 5-11 07-21 tablet by it y of estradiol 00:00: 00:00 mouth [place] (SRONYX) 00 :00 daily. Medical 0.1-20 Branch mg-mcg per tablet levonorgest 2020-0 2020- No [id number] 1{tbl} Take 1 [facility] rel-ethinyl 5-11 07-21 tablet by it y of estradiol 00:00: 00:00 mouth [place] (SRONYX) 00 :00 daily. Medical 0.1-20 Branch mg-mcg per tablet divalproex 2020-0 2020- No TAKE 1 Univ ers ER 500 mg 07-12- TABLET BY ity of 24 hr 00:00: 00:00 MOUTH ONCE [place] tablet 00 :00 DAILY AT Medical BEDTIME Branch divalproex 2019-0 2020- No TAKE 1 Univ ers ER 500 mg 07-12- TABLET BY ity of 24 hr 00:00: 00:00 MOUTH ONCE [place] tablet 00 :00 DAILY AT Medical BEDTIME Branch acetaminoph 2019-0 2019- No 1{tbl} 1 tablet, [facility] en-codeine 06-26 Oral, ity of (TYLENOL 01:45: 01:56 ONCE, 1 [place] #3) 300-30 00 :00 dose, [facility] tablet 1 06/26/19 at Br anch tablet 2044, [place] ketorolac 2019- No 30mg 30 mg, Unive rs (TORADOL) 06-26 Intramuscu ity of injection 00:30: 00:37 [place], ONCE, [place] 30 mg 00 :00 1 dose, [facility] 06/26/19 at 1930, SHAY[place]
Fa culty member approving Restricted medication : LORY PIMENTEL I naproxen 2020-0 Yes [id number] 500mg Take 1 [facility] [place] (NAPROSYN) 4-19 tablet by ity of 500 mg 00:00: mouth 2 [place] tablet 00 (two) Medical times Branch daily with meals. naproxen 2020-0 Yes [id number] 500mg Take 1 [facility] [place] (NAPROSYN) 4-19 tablet by ity of 500 mg 00:00: mouth 2 [place] tablet 00 (two) Medical times Branch daily with meals. naproxen 2020-0 Yes [id number] 500mg Take 1 [facility] [place] (NAPROSYN) 4-19 tablet by ity of 500 mg 00:00: mouth 2 [place] tablet 00 (two) Medical times Branch daily with meals. naproxen 2020-0 Yes [id number] 500mg Take 1 [place] (NAPROSYN) 4-19 tablet by ity of 500 mg 00:00: mouth 2 [place] tablet 00 (two) Medical times Branch daily with meals. naproxen 2020-0 Yes [id number] 500mg Take 1 [facility] [place] (NAPROSYN) 4-19 tablet by ity of 500 mg 00:00: mouth 2 [place] tablet 00 (two) Medical times Branch daily with meals. naproxen 2020-0 Yes [id number] 500mg Take 1 [place] (NAPROSYN) 4-19 tablet by ity of 500 mg 00:00: mouth 2 [place] tablet 00 (two) Medical times Branch daily with meals. naproxen 2019-0 Yes [id number] 500mg Take 1 [facility] [place] (NAPROSYN) 4-19 tablet by ity of 500 mg 00:00: mouth 2 [place] tablet 00 (two) Medical times Branch daily with meals. naproxen 2020- No [id number] 500mg Take 1 U nivers (NAPROSYN) 4-19 07-21 tablet by ity of 500 mg 00:00: 00:00 mouth 2 [place] tablet 00 :00 (two) Medical times Branch daily with meals. naproxen 2020- No [id number] 500mg Take 1 U n[facility] (NAPROSYN) 4-19 07-21 tablet by ity of 500 mg 00:00: 00:00 mouth 2 [place] tablet 00 :00 (two) Medical times Branch daily with meals. cephALEXin 2020- No [id number] 500mg Take 1 [facility] (KEFLEX) 4-19 04-30 capsule by ity of 500 mg 00:00: 04:59 mouth 2 [place] capsule 00 :00 (two) Medical times Branch daily for 10 days. azithromyci 2020- No [id number] 1000mg Take 2 [facility] n 3-12 03-13 tablets by ity of (ZITHROMAX) 00:00: 04:59 mouth once [place] 500 mg 00 :00 now for 1 Medical tablet dose. Branch Nitrofurant 2020- No [id number] 100mg Take 1 [facility] oin&Nit. 3-10 03-18 capsule by ity of Macrocryst 00:00: 04:59 mouth 2 [place] (MACROBID) 00 :00 (two) Medical 100 mg times Branch capsule daily for 7 days. Nitrofurant 2020- No [id number] 100mg Take 1 [facility] oin&Nit. 3-10 03-18 capsule by ity of Macrocryst 00:00: 04:59 mouth 2 [place] as (MACROBID) 00 :00 (two) Medical 100 mg times Branch capsule daily for 7 days. Nitrofurant 2020-0 2020- No [id number] 100mg Take 1 [facility] oin&Nit. 3-10 -18 capsule by ity of Macrocryst 00:00: 04:59 mouth 2 [place] as (MACROBID) 00 :00 (two) Medical 100 mg times Branch capsule daily for 7 days. Nitrofurant 2020-0 2020- No [id number] 100mg Take 1 [facility] oin&Nit. 3-10 -18 capsule by ity of Macrocryst 00:00: 04:59 mouth 2 [place] as (MACROBID) 00 :00 (two) Medical 100 mg times Branch capsule daily for 7 days. levETIRAcet 2020-0 2020- No 1500mg 1,500 mg, Univers am (KEPPRA) 2-12 - Oral, ity of tablet 20:15: 19:20 ONCE, 1 [place] 1,500 mg 00 :00 dose, Wed Medica l 04/20/19 at Branch 1415, Routine levETIRAcet 2020-0 Yes [id number] 1500mg Take 2 [facility] am (KEPPRA) 2-12 tablets by it y of 750 mg 00:00: mouth 2 [place] tablet 00 (two) Medical times Branch daily. levETIRAcet 2020-0 Yes [id number] 1500mg Take 2 [facility] am (KEPPRA) 2-12 tablets by it y of 750 mg 00:00: mouth 2 [place] tablet 00 (two) Medical times Branch daily. levETIRAcet 2020-0 Yes [id number] 1500mg Take 2 [facility] am (KEPPRA) 2-12 tablets by it y of 750 mg 00:00: mouth 2 [place] tablet 00 (two) Medical times Branch daily. levETIRAcet 2020-0 Yes [id number] 1500mg Take 2 [facility] am (KEPPRA) 2-12 tablets by it y of 750 mg 00:00: mouth 2 [place] tablet 00 (two) Medical times Branch daily. levETIRAcet 2020-0 Yes [id number] 1500mg Take 2 [facility] am (KEPPRA) 2-12 tablets by it y of 750 mg 00:00: mouth 2 [place] tablet 00 (two) Medical times Branch daily. levETIRAcet 2020-0 Yes [id number] 1500mg Take 2 [facility] am (KEPPRA) 2-12 tablets by it y of 750 mg 00:00: mouth 2 [place] tablet 00 (two) Medical times Branch daily. levETIRAcet 2020-0 Yes [id number] 1500mg Take 2 [facility] am (KEPPRA) 2-12 tablets by it y of 750 mg 00:00: mouth 2 [place] tablet 00 (two) Medical times Branch daily. levETIRAcet 2020-0 Yes [id number] 1500mg Take 2 [facility] am (KEPPRA) 2-12 tablets by it y of 750 mg 00:00: mouth 2 [place] tablet 00 (two) Medical times Branch daily. levETIRAcet 2020-0 Yes [id number] 1500mg Take 2 [facility] am (KEPPRA) 2-12 tablets by it y of 750 mg 00:00: mouth 2 [place] tablet 00 (two) Medical times Branch daily. levETIRAcet 2020-0 Yes [id number] 1500mg Take 2 [facility] am (KEPPRA) 2-12 tablets by it y of 750 mg 00:00: mouth 2 [place] tablet 00 (two) Medical times Branch daily. levETIRAcet 2020-0 Yes [id number] 1500mg Take 2 [facility] am (KEPPRA) 2-12 tablets by it y of 750 mg 00:00: mouth 2 [place] tablet 00 (two) Medical times Branch daily. levETIRAcet 2020-0 Yes [id number] 1500mg Take 2 [facility] am (KEPPRA) 2-12 tablets by it y of 750 mg 00:00: mouth 2 [place] tablet 00 (two) Medical times Branch daily. levETIRAcet 2020-0 Yes [id number] 1500mg Take 2 [facility] am (KEPPRA) 2-12 tablets by it y of 750 mg 00:00: mouth 2 [place] tablet 00 (two) Medical times Branch daily. levETIRAcet 2020-0 Yes [id number] 1500mg Take 2 [facility] am (KEPPRA) 2-12 tablets by it y of 750 mg 00:00: mouth 2 [place] tablet 00 (two) Medical times Branch daily. levETIRAcet 2020-0 Yes [id number] 1500mg Take 2 [facility] am (KEPPRA) 2-12 tablets by it y of 750 mg 00:00: mouth 2 [place] tablet 00 (two) Medical times Branch daily. levETIRAcet 2020-0 Yes [id number] 1500mg Take 2 [facility] (KEPPRA) 2-12 tablets by it y of 750 mg 00:00: mouth 2 [place] tablet 00 (two) Medical times Branch daily. levETIRAcet 2020-0 Yes [id number] 1500mg Take 2 [facility] (KEPPRA) 2-12 tablets by it y of 750 mg 00:00: mouth 2 [place] tablet 00 (two) Medical times Branch daily. levETIRAcet 2020-0 Yes [id number] 1500mg Take 2 [facility] (KEPPRA) 2-12 tablets by it y of 750 mg 00:00: mouth 2 [place] tablet 00 (two) Medical times Branch daily. levETIRAcet 2020-0 Yes [id number] 1500mg Take 2 [facility] (KEPPRA) 2-12 tablets by it y of 750 mg 00:00: mouth 2 [place] tablet 00 (two) Medical times Branch daily. levETIRAcet 2020-0 Yes [id number] 1500mg Take 2 [facility] (KEPPRA) 2-12 tablets by it y of 750 mg 00:00: mouth 2 [place] tablet 00 (two) Medical times Branch daily. levETIRAcet 2020-0 Yes [id number] 1500mg Take 2 [facility] (KEPPRA) 2-12 tablets by it y of 750 mg 00:00: mouth 2 [place] tablet 00 (two) Medical times Branch daily. levETIRAcet 2020-0 Yes [id number] 1500mg Take 2 [facility] (KEPPRA) 2-12 tablets by it y of 750 mg 00:00: mouth 2 [place] tablet 00 (two) Medical times Branch daily. levETIRAcet 2020-0 Yes [id number] 1500mg Take 2 [facility] (KEPPRA) 2-12 tablets by it y of 750 mg 00:00: mouth 2 [place] tablet 00 (two) Medical times Branch daily. levETIRAcet 2020-0 2020- No [id number] 1500mg Take 2 [facility] (KEPPRA) 2-12 -21 tablets by i ty of 750 mg 00:00: 00:00 mouth 2 [place] tablet 00 :00 (two) Medical times Branch daily. levETIRAcet 2020-0 2020- No [id number] 1500mg Take 2 [facility] (KEPPRA) 2-12 -21 tablets by i ty of 750 mg 00:00: 00:00 mouth 2 [place] tablet 00 :00 (two) Medical times Branch daily. azithromyci 2020-0 2020- No [id number] 1000mg Take 2 [facility] n 500 mg 14 -16 tablets by ity of tablet 00:00: 05:59 mouth [place] 00 :00 daily for Medical 1 day. Luis goldstein 0 2020- No [id number] 1000mg Take 2 [facility] n 500 mg -14 -16 tablets by ity of tablet 00:00: 05:59 mouth [place] 00 :00 daily for Medical 1 day. Luis NUVARING Yes [id number] 1{each} Insert 1 [facility] 0.12-0.015 4-15 Each into ity of mg/24 hr 00:00: vagina [place] vaginal 00 once every Medica l insert month. Branch Insert vaginally and leave in place for 3 consecutiv e weeks, then remove for 1 week. NUVARING Yes [id number] 1{each} Insert 1 [facility] 0.12-0.015 4-15 Each into ity of mg/24 hr 00:00: vagina [place] vaginal 00 once every Medica l insert month. Branch Insert vaginally and leave in place for 3 consecutiv e weeks, then remove for 1 week. NUVARING Yes [id number] 1{each} Insert 1 [facility] 0.12-0.015 4-15 Each into ity of mg/24 hr 00:00: vagina [place] vaginal 00 once every Medica l insert month. Branch Insert vaginally and leave in place for 3 consecutiv e weeks, then remove for 1 week. NUVARING Yes [id number] 1{each} Insert 1 [facility] 0.12-0.015 4-15 Each into ity of mg/24 hr 00:00: vagina [place] vaginal 00 once every Medica l insert month. Branch Insert vaginally and leave in place for 3 consecutiv e weeks, then remove for 1 week. NUVARING Yes [id number] 1{each} Insert 1 [facility] 0.12-0.015 4-15 Each into ity of mg/24 hr 00:00: vagina [place] vaginal 00 once every Medica l insert month. Branch Insert vaginally and leave in place for 3 consecutiv e weeks, then remove for 1 week. NUVARING Yes [id number] 1{each} Insert 1 [facility] 0.12-0.015 4-15 Each into ity of mg/24 hr 00:00: vagina [place] vaginal 00 once every Medica l insert month. Branch Insert vaginally and leave in place for 3 consecutiv e weeks, then remove for 1 week. NUVARING 2019- No [id number] 1{each} Insert 1 [facility] 0.12-0.015 4-15 -10 Each into ity of mg/24 hr 00:00: 00:00 vagina [place] vaginal 00 :00 once every Medica l insert month. Branch Insert vaginally and leave in place for 3 consecutiv e weeks, then remove for 1 week. NUVARING 2019- No [id number] 1{each} Insert 1 [facility] 0.12-0.015 15 -10 Each into ity of mg/24 hr 00:00: 00:00 vagina [place] vaginal 00 :00 once every Medica l insert month. Branch Insert vaginally and leave in place for 3 consecutiv e weeks, then remove for 1 week. sulfamethox 2019-0 Yes [id number] 1{tbl} Take 1 [facility] azole-trime 3-29 [id number] tablet by i ty of thoprim 00:00: mouth [place] 800-160 mg 00 every 12 Medic al per tablet (twelve) Branc h hours. traMADOL 2019-0 Yes [id number] 50mg Take 1 [facility] (ULTRAM) 50 3-29 [id number] tablet by i ty of mg tablet 00:00: mouth [place] 00 every 6 Medical (six) Branch hours as needed for Pain (scale 4-6). sulfamethox 2019-0 Yes [id number] 1{tbl} Take 1 [facility] azole-trime 3-29 [id number] tablet by i ty of thoprim 00:00: mouth [place] 800-160 mg 00 every 12 Medic al per tablet (twelve) Branc h hours. traMADOL 2019-0 Yes [id number] 50mg Take 1 [facility] (ULTRAM) 50 3-29 [id number] tablet by i ty of mg tablet 00:00: mouth [place] 00 every 6 Medical (six) Branch hours as needed for Pain (scale 4-6). sulfamethox 2019-0 Yes [id number] 1{tbl} Take 1 [facility] azole-trime 3-29 [id number] tablet by i ty of thoprim 00:00: mouth [place] 800-160 mg 00 every 12 Medic al per tablet (twelve) Branc h hours. traMADOL 2019-0 Yes [id number] 50mg Take 1 [facility] (ULTRAM) 50 3-29 [id number] tablet by i ty of mg tablet 00:00: mouth [place] 00 every 6 Medical (six) Branch hours as needed for Pain (scale 4-6). sulfamethox 2019-0 Yes [id number] 1{tbl} Take 1 [facility] azole-trime 3-29 [id number] tablet by i ty of thoprim 00:00: mouth [place] 800-160 mg 00 every 12 Medic al per tablet (twelve) Branc h hours. traMADOL 2019-0 Yes [id number] 50mg Take 1 [facility] (ULTRAM) 50 3-29 [id number] tablet by i ty of mg tablet 00:00: mouth [place] 00 every 6 Medical (six) Branch hours as needed for Pain (scale 4-6). sulfamethox 2019-0 Yes [id number] 1{tbl} Take 1 [facility] azole-trime 3-29 [id number] tablet by i ty of thoprim 00:00: mouth [place] 800-160 mg 00 every 12 Medic al per tablet (twelve) Branc h hours. traMADOL 2019-0 Yes [id number] 50mg Take 1 [facility] (ULTRAM) 50 3-29 [id number] tablet by i ty of mg tablet 00:00: mouth [place] 00 every 6 Medical (six) Branch hours as needed for Pain (scale 4-6). sulfamethox 2019-0 Yes [id number] 1{tbl} Take 1 [facility] azole-trime 3-29 [id number] tablet by i ty of thoprim 00:00: mouth [place] 800-160 mg 00 every 12 Medic al per tablet (twelve) Branc h hours. traMADOL 2019-0 Yes [id number] 50mg Take 1 [facility] (ULTRAM) 50 3-29 [id number] tablet by i ty of mg tablet 00:00: mouth [place] 00 every 6 Medical (six) Branch hours as needed for Pain (scale 4-6). sulfamethox 2019-0 2020- No [id number] 1{tbl} Take 1 [facility] azole-trime 3-29 03-10 [id number] tablet by ity of thoprim 00:00: 00:00 mouth [place] 800-160 mg 00 :00 every 12 Medic al per tablet (twelve) Branc h hours. traMADOL 2019-0 2020- No [id number] 50mg Take 1 [facility] (ULTRAM) 50 06-04 [id number] tablet by ity of mg tablet 00:00: 00:00 mouth [place] 00 :00 every 6 Medical (six) Branch hours as needed for Pain (scale 4-6). sulfamethox 2020- No [id number] 1{tbl} Take 1 [facility] azole-trime 06-04 [id number] tablet by ity of thoprim 00:00: 00:00 mouth [place] 800-160 mg 00 :00 every 12 Medic al per tablet (twelve) Branc h hours. traMADOL 2019- No [id number] 50mg Take 1 [facility] (ULTRAM) 50 06-04 [id number] tablet by ity of mg tablet 00:00: 00:00 mouth [place] 00 :00 every 6 Medical (six) Branch hours as needed for Pain (scale 4-6). Immunizations Ordered Filled Immunization Date Status Comments [facility] e Immunization Name Name HPV9 2019-12-30 Completed [facility] of 00:00: [facility] HPV9 2019-12-30 Completed [facility] of 00:00:00 [facility] HPV9 2019-12-30 Completed University of 00:00:00 [facility] HPV9 2019-12-30 Completed [facility] of 00:00:00 [facility] HPV9 2019-12-30 Completed [facility] of 00:00:00 [facility] HPV9 2019-12-30 Completed [facility] of 00:00:00 [facility] HPV9 2019-12-30 Completed University of 00:00:00 [facility] HPV9 2019-12-30 Completed [facility] of 00:00:00 [facility] HPV9 2019-12-30 Completed [facility] of 00:00:00 [facility] HPV9 2019-12-30 Completed [facility] of 00:00:00 [facility] HPV9 2019-12-30 Completed [facility] of 00:00:00 [facility] HPV9 2019-12-30 Completed [facility] of 00:00:00 [facility] HPV9 2019-12-30 Completed University of 00:00:00 [facility] HPV9 2019-12-30 Completed [facility] of 00:00:00 [facility] HPV9 2019-12-30 Completed [facility] of 00:00:00 [facility] HPV9 2019-12-30 Completed University of 00:00:00 [facility] HPV9 2019-12-30 Completed [facility] of 00:00:00 [place] [facility] HPV9 2019-12-30 Completed [facility] of 00:00:00 [place] [facility] HPV9 2019-12-30 Completed [facility] of 00:00:00 [place] [facility] HPV9 2019-12-30 Completed [facility] of 00:00:00 [place] [facility] HPV9 2019-12-30 Completed [facility] of 00:00:00 [place] [facility] HPV9 2019-12-30 Completed [facility] of 00:00:00 [place] [facility] HPV9 2019-12-30 Completed [facility] of 00:00:00 [place] [facility] HPV9 2019-12-30 Completed [facility] of 00:00:00 [place] [facility] HPV9 2019-12-30 Completed [facility] of 00:00:00 [place] [facility] HPV9 2019-12-30 Completed [facility] of 00:00:00 [place] [facility] HPV9 2019-12-30 Completed [facility] of 00:00:00 [place] [facility] HPV9 2019-12-30 Completed University of 00:00:00 [place] [facility] HPV9 2019-12-30 Completed [facility] of 00:00:00 [place] [facility] HPV9 2019-12-30 Completed [facility] of 00:00:00 [place] [facility] HPV9 2019-12-30 Completed [facility] of 00:00:00 [place] [facility] HPV9 2019-12-30 Completed [facility] of 00:00:00 [place] [facility] HPV9 2019-12-30 Completed [facility] of 00:00:00 [place] [facility] HPV9 2019-12-30 Completed [facility] of 00:00:00 [place] [facility] HPV9 2019-12-30 Completed [facility] of 00:00:00 [place] [facility] HPV9 2019-12-30 Completed [facility] of 00:00:00 [place] [facility] HPV9 2019-12-30 Completed [facility] of 00:00:00 [place] [facility] HPV9 2019-12-30 Completed [facility] of 00:00:00 [place] [facility] HPV9 2019-12-30 Completed [facility] of 00:00:00 [place] [facility] HPV9 2019-12-30 Completed [facility] of 00:00:00 [place] [facility] HPV9 2019-12-30 Completed University of 00:00:00 [place] [facility] HPV9 2019-12-30 Completed [facility] of 00:00:00 [place] [facility] HPV9 2019-12-30 Completed [facility] of 00:00:00 [place] [facility] HPV9 2019-09-27 Completed University of 00:00:00 [place] [facility] HPV9 2019-09-27 Completed [facility] of 00:00:00 [place] [facility] HPV9 2019-09-27 Completed University of 00:00:00 [place] [facility] HPV9 2019-09-27 Completed [facility] of 00:00:00 [place] [facility] HPV9 2019-09-27 Completed University of 00:00:00 [place] [facility] HPV9 2019-09-27 Completed University of 00:00:00 [place] [facility] HPV9 2019-09-27 Completed University of 00:00:00 [place] [facility] HPV9 2019-09-27 Completed University of 00:00:00 [place] [facility] HPV9 2019-09-27 Completed University of 00:00:00 [place] [facility] HPV9 2019-09-27 Completed University of 00:00:00 [place] [facility] HPV9 2019-09-27 Completed University of 00:00:00 [place] [facility] HPV9 2019-09-27 Completed University of 00:00:00 [place] [facility] HPV9 2019-09-27 Completed University of 00:00:00 [place] [facility] HPV9 2019-09-27 Completed University of 00:00:00 [place] [facility] HPV9 2019-09-27 Completed University of 00:00:00 [place] [facility] HPV9 2019-09-27 Completed University of 00:00:00 [place] [facility] HPV9 2019-09-27 Completed University of 00:00:00 [place] [facility] HPV9 2019-09-27 Completed University of 00:00:00 [place] [facility] HPV9 2019-09-27 Completed University of 00:00:00 [place] [facility] HPV9 2019-09-27 Completed University of 00:00:00 [place] [facility] HPV9 2019-09-27 Completed University of 00:00:00 [place] [facility] HPV9 2019-09-27 Completed University of 00:00:00 [place] [facility] HPV9 2019-09-27 Completed University of 00:00:00 [place] [facility] HPV9 2019-09-27 Completed University of 00:00:00 [place] [facility] HPV9 2019-09-27 Completed University of 00:00:00 [place] [facility] HPV9 2019-09-27 Completed University of 00:00:00 [place] [facility] HPV9 2019-09-27 Completed University of 00:00:00 [place] [facility] HPV9 2019-09-27 Completed University of 00:00:00 [place] [facility] HPV9 2019-09-27 Completed University of 00:00:00 [place] [facility] HPV9 2019-09-27 Completed University of 00:00:00 [place] [facility] HPV9 2019-09-27 Completed University of 00:00:00 [place] [facility] HPV9 2019-09-27 Completed University of 00:00:00 [place] [facility] HPV9 2019-09-27 Completed University of 00:00:00 [place] [facility] HPV9 2019-09-27 Completed University of 00:00:00 [place] [facility] HPV9 2019-09-27 Completed University of 00:00:00 [place] [facility] HPV9 2019-09-27 Completed University of 00:00:00 [place] [facility] HPV9 2019-09-27 Completed University of 00:00:00 [place] [facility] HPV9 2019-09-27 Completed University of 00:00:00 [place] [facility] HPV9 2019-09-27 Completed University of 00:00:00 [place] [facility] HPV9 2019-09-27 Completed University of 00:00:00 [place] [facility] HPV9 2019-09-27 Completed [facility] of 00:00:00 [place] [facility] HPV9 2019-09-27 Completed [facility] of 00:00:00 [place] [facility] HPV9 2019-09-27 Completed University of 00:00:00 [place] [facility] HPV9 2019-09-27 Completed [facility] of 00:00:00 [place] [facility] HPV9 2019-09-27 Completed [facility] of 00:00:00 [place] [facility] HPV9 2019-09-27 Completed [facility] of 00:00:00 [place] [facility] HPV9 2019-09-27 Completed [facility] of 00:00:00 [place] [facility] HPV9 2019-09-27 Completed [facility] of 00:00:00 [place] [facility] HPV9 2019-09-27 Completed [facility] of 00:00:00 [place] [facility] HPV9 2019-09-27 Completed [facility] of 00:00:00 [place] [facility] HPV9 2019-09-27 Completed [facility] of 00:00:00 [place] [facility] HPV9 2019-09-27 Completed University of 00:00:00 [place] [facility] HPV9 2019-09-27 Completed University of 00:00:00 [place] [facility] HPV9 2019-05-17 Completed University of 00:00:00 [place] [facility] HPV9 2019-05-17 Completed [facility] of 00:00:00 [place] [facility] HPV9 2019-05-17 Completed University of 00:00:00 [place] [facility] HPV9 2019-05-17 Completed University of 00:00:00 [place] [facility] HPV9 2019-05-17 Completed [facility] of 00:00:00 [place] [facility] HPV9 2019-05-17 Completed [facility] of 00:00:00 [place] [facility] HPV9 2019-05-17 Completed University of 00:00:00 [place] [facility] HPV9 2019-05-17 Completed University of 00:00:00 [place] [facility] HPV9 2019-05-17 Completed University of 00:00:00 [place] [facility] HPV9 2019-05-17 Completed [facility] of 00:00:00 [place] [facility] HPV9 2019-05-17 Completed University of 00:00:00 [place] [facility] HPV9 2019-05-17 Completed University of 00:00:00 [place] [facility] HPV9 2019-05-17 Completed University of 00:00:00 [place] [facility] HPV9 2019-05-17 Completed University of 00:00:00 [place] [facility] HPV9 2019-05-17 Completed University of 00:00:00 [place] [facility] HPV9 2019-05-17 Completed University of 00:00:00 [place] [facility] HPV9 2019-05-17 Completed University of 00:00:00 [place] [facility] HPV9 2019-05-17 Completed University of 00:00:00 [place] [facility] HPV9 2019-05-17 Completed University of 00:00:00 [place] [facility] HPV9 2019-05-17 Completed University of 00:00:00 [place] [facility] HPV9 2019-05-17 Completed University of 00:00:00 [place] [facility] HPV9 2019-05-17 Completed University of 00:00:00 [place] [facility] HPV9 2019-05-17 Completed University of 00:00:00 [place] [facility] HPV9 2019-05-17 Completed University of 00:00:00 [place] [facility] HPV9 2019-05-17 Completed University of 00:00:00 [place] [facility] HPV9 2019-05-17 Completed University of 00:00:00 [place] [facility] HPV9 2019-05-17 Completed University of 00:00:00 [place] [facility] HPV9 2019-05-17 Completed University of 00:00:00 [place] [facility] HPV9 2019-05-17 Completed University of 00:00:00 [place] [facility] HPV9 2019-05-17 Completed University of 00:00:00 [place] [facility] HPV9 2019-05-17 Completed University of 00:00:00 [place] [facility] HPV9 2019-05-17 Completed University of 00:00:00 [place] [facility] HPV9 2019-05-17 Completed University of 00:00:00 [place] [facility] HPV9 2019-05-17 Completed University of 00:00:00 [place] [facility] HPV9 2019-05-17 Completed University of 00:00:00 [place] [facility] HPV9 2019-05-17 Completed University of 00:00:00 [place] [facility] HPV9 2019-05-17 Completed University of 00:00:00 [place] [facility] HPV9 2019-05-17 Completed University of 00:00:00 [place] [facility] HPV9 2019-05-17 Completed University of 00:00:00 [place] [facility] HPV9 2019-05-17 Completed University of 00:00:00 [place] [facility] HPV9 2019-05-17 Completed University of 00:00:00 [place] [facility] HPV9 2019-05-17 Completed University of 00:00:00 [place] [facility] HPV9 2019-05-17 Completed University of 00:00:00 [place] [facility] HPV9 2019-05-17 Completed University of 00:00:00 [place] [facility] HPV9 2019-05-17 Completed University of 00:00:00 [place] [facility] HPV9 2019-05-17 Completed University of 00:00:00 [place] [facility] HPV9 2019-05-17 Completed University of 00:00:00 [place] [facility] HPV9 2019-05-17 Completed University of 00:00:00 [place] [facility] HPV9 2019-05-17 Completed University of 00:00:00 [place] [facility] HPV9 2019-05-17 Completed University of 00:00:00 [place] [facility] HPV9 2019-05-17 Completed University of 00:00:00 [place] [facility] HPV9 2019-05-17 Completed University of 00:00:00 [place] [facility] HPV9 2019-05-17 Completed University of 00:00:00 [place] [facility] HPV9 2019-05-17 Completed University of 00:00:00 [place] [facility] HPV9 2019-05-17 Completed University of 00:00:00 [place] [facility] HPV9 2019-05-17 Completed University of 00:00:00 [place] [facility] HPV9 2019-05-17 Completed University of 00:00:00 [place] [facility] HPV9 2019-05-17 Completed University of 00:00:00 [place] [facility] HPV9 2019-05-17 Completed University of 00:00:00 [place] [facility] HPV9 2019-05-17 Completed University of 00:00:00 [place] [facility] HPV9 2019-05-17 Completed University of 00:00:00 [place] [facility] HPV9 2019-05-17 Completed University of 00:00:00 [place] [facility] HPV9 2019-05-17 Completed University of 00:00:00 [place] [facility] HPV9 2019-05-17 Completed University of 00:00:00 [place] [facility] HPV9 2019-05-17 Completed University of 00:00:00 [place] [facility] HPV9 2019-05-17 Completed University of 00:00:00 [place] [facility] HPV9 2019-05-17 Completed University of 00:00:00 [place] [facility] HPV9 2019-05-17 Completed University of 00:00:00 [place] [facility] HPV9 2019-05-17 Completed University of 00:00:00 [place] [facility] HPV9 2019-05-17 Completed University of 00:00:00 [place] [facility] HPV9 2019-05-17 Completed University of 00:00:00 [place] [facility] HPV9 2019-05-17 Completed University of 00:00:00 [place] [facility] HPV9 2019-05-17 Completed University of 00:00:00 [place] [facility] HPV9 2019-05-17 Completed University of 00:00:00 [place] [facility] HPV9 2019-05-17 Completed University of 00:00:00 [facility] TDAP (ADACEL) 2018-02-15 Completed University of VACCINE 00:00:00 [facility] TDAP (ADACEL) 2018-02-15 Completed University of VACCINE 00:00:00 [facility] TDAP (ADACEL) 2018-02-15 Completed University of VACCINE 00:00:00 [place] [facility] TDAP (ADACEL) 2018-02-15 Completed University of VACCINE 00:00:00 [place] [facility] TDAP (ADACEL) 2018-02-15 Completed University of VACCINE 00:00:00 [place] [facility] TDAP (ADACEL) 2018-02-15 Completed University of VACCINE 00:00:00 [place] [facility] TDAP (ADACEL) 2018-02-15 Completed University of VACCINE 00:00:00 [place] [facility] TDAP (ADACEL) 2018-02-15 Completed University of VACCINE 00:00:00 [place] [facility] TDAP (ADACEL) 2018-02-15 Completed University of VACCINE 00:00:00 [place] [facility] TDAP (ADACEL) 2018-02-15 Completed University of VACCINE 00:00:00 [place] [facility] TDAP (ADACEL) 2018-02-15 Completed University of VACCINE 00:00:00 [place] [facility] TDAP (ADACEL) 2018-02-15 Completed University of VACCINE 00:00:00 [place] [facility] TDAP (ADACEL) 2018-02-15 Completed University of VACCINE 00:00:00 [place] [facility] TDAP (ADACEL) 2018-02-15 Completed University of VACCINE 00:00:00 [place] [facility] TDAP (ADACEL) 2018-02-15 Completed University of VACCINE 00:00:00 [place] [facility] TDAP (ADACEL) 2018-02-15 Completed University of VACCINE 00:00:00 [facility] TDAP (ADACEL) 2018-02-15 Completed University of VACCINE 00:00:00 [facility] TDAP (ADACEL) 2018-02-15 Completed University of VACCINE 00:00:00 [facility] TDAP (ADACEL) 2018-02-15 Completed University of VACCINE 00:00:00 [facility] TDAP (ADACEL) 2018-02-15 Completed University of VACCINE 00:00:00 [facility] TDAP (ADACEL) 2018-02-15 Completed University of VACCINE 00:00:00 [facility] TDAP (ADACEL) 2018-02-15 Completed University of VACCINE 00:00:00 [facility] TDAP (ADACEL) 2018-02-15 Completed University of VACCINE 00:00:00 [facility] TDAP (ADACEL) 2018-02-15 Completed University of VACCINE 00:00:00 [facility] TDAP (ADACEL) 2018-02-15 Completed University of VACCINE 00:00:00 [place] [facility] TDAP (ADACEL) 2018-02-15 Completed University of VACCINE 00:00:00 [facility] TDAP (ADACEL) 2018-02-15 Completed University of VACCINE 00:00:00 [place] [facility] TDAP (ADACEL) 2018-02-15 Completed University of VACCINE 00:00:00 [place] [facility] TDAP (ADACEL) 2018-02-15 Completed University of VACCINE 00:00:00 [facility] TDAP (ADACEL) 2018-02-15 Completed University of VACCINE 00:00:00 [facility] TDAP (ADACEL) 2018-02-15 Completed University of VACCINE 00:00:00 [facility] TDAP (ADACEL) 2018-02-15 Completed University of VACCINE 00:00:00 [place] [facility] TDAP (ADACEL) 2018-02-15 Completed University of VACCINE 00:00:00 [place] [facility] TDAP (ADACEL) 2018-02-15 Completed University of VACCINE 00:00:00 [facility] TDAP (ADACEL) 2018-02-15 Completed University of VACCINE 00:00:00 [facility] TDAP (ADACEL) 2018-02-15 Completed University of VACCINE 00:00:00 [facility] TDAP (ADACEL) 2018-02-15 Completed University of VACCINE 00:00:00 [facility] TDAP (ADACEL) 2018-02-15 Completed University of VACCINE 00:00:00 [facility] TDAP (ADACEL) 2018-02-15 Completed University of VACCINE 00:00:00 [facility] TDAP (ADACEL) 2018-02-15 Completed University of VACCINE 00:00:00 [facility] TDAP (ADACEL) 2018-02-15 Completed University of VACCINE 00:00:00 [facility] TDAP (ADACEL) 2018-02-15 Completed University of VACCINE 00:00:00 [facility] TDAP (ADACEL) 2018-02-15 Completed University of VACCINE 00:00:00 [facility] TDAP (ADACEL) 2018-02-15 Completed University of VACCINE 00:00:00 [facility] TDAP (ADACEL) 2018-02-15 Completed University of VACCINE 00:00:00 [facility] TDAP (ADACEL) 2018-02-15 Completed University of VACCINE 00:00:00 [facility] TDAP (ADACEL) 2018-02-15 Completed University of VACCINE 00:00:00 [facility] TDAP (ADACEL) 2018-02-15 Completed University of VACCINE 00:00:00 [facility] TDAP (ADACEL) 2018-02-15 Completed University of VACCINE 00:00:00 [place] [facility] TDAP (ADACEL) 2018-02-15 Completed University of VACCINE 00:00:00 [place] [facility] TDAP (ADACEL) 2018-02-15 Completed University of VACCINE 00:00:00 [facility] TDAP (ADACEL) 2018-02-15 Completed [facility] VACCINE 00:00:00 [facility] TDAP (ADACEL) 2018-02-15 Completed [facility] VACCINE 00:00:00 [facility] TDAP (ADACEL) 2018-02-15 Completed [facility] VACCINE 00:00:00 [facility] TDAP (ADACEL) 2018-02-15 Completed [facility] VACCINE 00:00:00 [facility] TDAP (ADACEL) 2018-02-15 Completed [facility] VACCINE 00:00:00 [facility] TDAP (ADACEL) 2018-02-15 Completed [facility] VACCINE 00:00:00 [facility] TDAP (ADACEL) 2018-02-15 Completed [facility] VACCINE 00:00:00 [facility] TDAP (ADACEL) 2018-02-15 Completed [facility] VACCINE 00:00:00 [facility] TDAP (ADACEL) 2018-02-15 Completed [facility] VACCINE 00:00:00 [facility] TDAP (ADACEL) 2018-02-15 Completed [facility] VACCINE 00:00:00 [facility] TDAP (ADACEL) 2018-02-15 Completed [facility] VACCINE 00:00:00 [facility] TDAP (ADACEL) 2018-02-15 Completed [facility] VACCINE 00:00:00 [facility] TDAP (ADACEL) 2018-02-15 Completed [facility] VACCINE 00:00:00 [facility] TDAP (ADACEL) 2018-02-15 Completed [facility] VACCINE 00:00:00 [facility] TDAP (ADACEL) 2018-02-15 Completed [facility] VACCINE 00:00:00 [facility] TDAP (ADACEL) 2018-02-15 Completed [facility] VACCINE 00:00:00 [facility] TDAP (ADACEL) 2018-02-15 Completed [facility] VACCINE 00:00:00 [facility] TDAP (ADACEL) 2018-02-15 Completed [facility] VACCINE 00:00:00 [facility] TDAP (ADACEL) 2018-02-15 Completed [facility] VACCINE 00:00:00 [facility] TDAP (ADACEL) 2018-02-15 Completed [facility] VACCINE 00:00:00 [facility] TDAP (ADACEL) 2018-02-15 Completed [facility] VACCINE 00:00:00 [facility] TDAP (ADACEL) 2018-02-15 Completed [facility] VACCINE 00:00:00 [facility] TDAP (ADACEL) 2018-02-15 Completed [facility] VACCINE 00:00:00 [facility] TDAP (ADACEL) 2018-02-15 Completed [facility] VACCINE 00:00:00 [facility] TDAP (ADACEL) 2018-02-15 Completed [facility] VACCINE 00:00:00 [facility] TDAP (ADACEL) 2018-02-15 Completed [facility] VACCINE 00:00:00 [facility] TDAP (ADACEL) 2018-02-15 Completed [facility] VACCINE 00:00:00 [facility] TDAP (ADACEL) 2018-02-15 Completed [facility] VACCINE 00:00:00 [facility] TDAP (ADACEL) 2018-02-15 Completed [facility] VACCINE 00:00:00 [facility] TDAP (ADACEL) 2018-02-15 Completed [facility] VACCINE 00:00:00 [facility] Influenza Virus 2017-12-14 Completed [facility]it [facility] 3+ 00:00:00 [facility] Influenza Virus 2017-12-14 Completed [facility] y of [facility] IM 3+ 00:00:00 [facility] Influenza Virus 2017-12-14 Completed [facility] of [facility] IM 3+ 00:00:00 [facility] Influenza Virus 2017-12-14 Completed [facility] of [facility] IM 3+ 00:00:00 [facility] Influenza Virus 2017-12-14 Completed [facility] of [facility] IM 3+ 00:00:00 [facility] Influenza Virus 2017-12-14 Completed [facility] IM 3+ 00:00:00 [facility] Influenza Virus 2017-12-14 Completed [facility] of [facility] IM 3+ 00:00:00 [facility] Influenza Virus 2017-12-14 Completed [facility] of Vacc[facility] IM 3+ 00:00:00 [facility] Influenza Virus 2017-12-14 Completed [facility] of Vaccine [facility] IM 3+ 00:00:00 [facility] Influenza Virus 2017-12-14 Completed [facility] of Vacc[facility] IM 3+ 00:00:00 [facility] Influenza Virus 2017-12-14 Completed [facility] of Vaccine [facility] IM 3+ 00:00:00 [facility] Influenza Virus 2017-12-14 Completed [facility] of Vacc[facility] IM 3+ 00:00:00 [facility] Influenza Virus 2017-12-14 Completed [facility] of Vacc[facility] IM 3+ 00:00:00 [facility] Influenza Virus 2017-12-14 Completed [facility] Vacc[facility] IM 3+ 00:00:00 [facility] Influenza Virus 2017-12-14 Completed [facility] Vaccine [facility] IM 3+ 00:00:00 [facility] Influenza Virus 2017-12-14 Completed [facility] of Vaccine [facility] IM 3+ 00:00:00 [facility] Influenza Virus 2017-12-14 Completed [facility] Vacc[facility] IM 3+ 00:00:00 [facility] Influenza Virus 2017-12-14 Completed [facility] Vaccine [facility] IM 3+ 00:00:00 [facility] Influenza Virus 2017-12-14 Completed [facility] Vaccine [facility] IM 3+ 00:00:00 [facility] Influenza Virus 2017-12-14 Completed [facility] of Vaccine [facility] IM 3+ 00:00:00 [facility] Influenza Virus 2017-12-14 Completed [facility] of Vaccine [facility] IM 3+ 00:00:00 [facility] Influenza Virus 2017-12-14 Completed [facility] Vaccine [facility] IM 3+ 00:00:00 [facility] Influenza Virus 2017-12-14 Completed [facility] Vacc[facility] IM 3+ 00:00:00 [facility] Influenza Virus 2017-12-14 Completed [facility] IM 3+ 00:00:00 [facility] Influenza Virus 2017-12-14 Completed [facility] Vacc[facility] IM 3+ 00:00:00 [facility] Influenza Virus 2017-12-14 Completed [facility] Vacc[facility] IM 3+ 00:00:00 [facility] Influenza Virus 2017-12-14 Completed [facility] of [facility] IM 3+ 00:00:00 [facility] Influenza Virus 2017-12-14 Completed [facility] Vacc[facility] IM 3+ 00:00:00 [facility] Influenza Virus 2017-12-14 Completed [facility] IM 3+ 00:00:00 [facility] Influenza Virus 2017-12-14 Completed [facility] IM 3+ 00:00:00 [facility] Influenza Virus 2017-12-14 Completed [facility] IM 3+ 00:00:00 [facility] Influenza Virus 2017-12-14 Completed [facility] Vaccine [facility] IM 3+ 00:00:00 [facility] Influenza Virus 2017-12-14 Completed [facility] of Vaccine [facility] IM 3+ 00:00:00 [facility] Influenza Virus 2017-12-14 Completed [facility] Vacc[facility] IM 3+ 00:00:00 [facility] Influenza Virus 2017-12-14 Completed [facility] Vacc[facility] IM 3+ 00:00:00 [facility] Influenza Virus 2017-12-14 Completed [facility] IM 3+ 00:00:00 [facility] Influenza Virus 2017-12-14 Completed [facility] Vacc[facility] IM 3+ 00:00:00 [facility] Influenza Virus 2017-12-14 Completed [facility] Vacc[facility] IM 3+ 00:00:00 [facility] Influenza Virus 2017-12-14 Completed [facility] Vaccine [facility] IM 3+ 00:00:00 [facility] Influenza Virus 2017-12-14 Completed [facility] Vaccine [facility] IM 3+ 00:00:00 [facility] Influenza Virus 2017-12-14 Completed [facility] Vaccine [facility] IM 3+ 00:00:00 [facility] Influenza Virus 2017-12-14 Completed [facility] Vaccine [facility] IM 3+ 00:00:00 [facility] Influenza Virus 2017-12-14 Completed [facility] Vaccine [facility] IM 3+ 00:00:00 [facility] Influenza Virus 2017-12-14 Completed [facility] Vaccine [facility] IM 3+ 00:00:00 [facility] Influenza Virus 2017-12-14 Completed [facility] Vaccine [facility] IM 3+ 00:00:00 [facility] Influenza Virus 2017-12-14 Completed [facility] Vaccine [facility] IM 3+ 00:00:00 [facility] Influenza Virus 2017-12-14 Completed [facility] Vaccine [facility] IM 3+ 00:00:00 [facility] Influenza Virus 2017-12-14 Completed [facility] IM 3+ 00:00:00 [facility] Influenza Virus 2017-12-14 Completed [facility] Vacc[facility] IM 3+ 00:00:00 [facility] Influenza Virus 2017-12-14 Completed [facility] Vaccine [facility] IM 3+ 00:00:00 [facility] Influenza Virus 2017-12-14 Completed [facility] Vaccine [facility] IM 3+ 00:00:00 [facility] Influenza Virus 2017-12-14 Completed [facility] Vaccine [facility] IM 3+ 00:00:00 [facility] Influenza Virus 2017-12-14 Completed [facility] Vaccine [facility] IM 3+ 00:00:00 [facility] Influenza Virus 2017-12-14 Completed [facility] of Vaccine [facility] IM 3+ 00:00:00 [facility] Influenza Virus 2017-12-14 Completed [facility] of Vaccine [facility] IM 3+ 00:00:00 [facility] Influenza Virus 2017-12-14 Completed [facility] of Vaccine [facility] IM 3+ 00:00:00 [facility] Influenza Virus 2017-12-14 Completed [facility] of Vaccine [facility] IM 3+ 00:00:00 [facility] Influenza Virus 2017-12-14 Completed [facility] of Vaccine [facility] IM 3+ 00:00:00 [facility] Influenza Virus 2017-12-14 Completed [facility] of Vaccine [facility] IM 3+ 00:00:00 [facility] Influenza Virus 2017-12-14 Completed [facility] Vaccine [facility] IM 3+ 00:00:00 [facility] Influenza Virus 2017-12-14 Completed [facility] of Vaccine [facility] IM 3+ 00:00:00 [facility] Influenza Virus 2017-12-14 Completed [facility] Vaccine [facility] IM 3+ 00:00:00 [facility] Influenza Virus 2017-12-14 Completed [facility] of Vaccine [facility] IM 3+ 00:00:00 [facility] Influenza Virus 2017-12-14 Completed [facility] of Vaccine [facility] IM 3+ 00:00:00 [facility] Influenza Virus 2017-12-14 Completed [facility] of Vaccine [facility] IM 3+ 00:00:00 [facility] Influenza Virus 2017-12-14 Completed [facility] of Vaccine [facility] IM 3+ 00:00:00 [facility] Influenza Virus 2017-12-14 Completed [facility] of Vaccine [facility] IM 3+ 00:00:00 [facility] Influenza Virus 2017-12-14 Completed [facility] of Vaccine [facility] IM 3+ 00:00:00 [facility] Influenza Virus 2017-12-14 Completed [facility] of Vaccine [facility] IM 3+ 00:00:00 [facility] Influenza Virus 2017-12-14 Completed [facility] of Vaccine [facility] IM 3+ 00:00:00 [facility] Influenza Virus 2017-12-14 Completed [facility] of Vaccine [facility] IM 3+ 00:00:00 [facility] Influenza Virus 2017-12-14 Completed [facility] of Vaccine [facility] IM 3+ 00:00:00 [facility] Influenza Virus 2017-12-14 Completed [facility] of Vaccine [facility] IM 3+ 00:00:00 [facility] Influenza Virus 2017-12-14 Completed [facility] of Vaccine [facility] IM 3+ 00:00:00 [facility] Influenza Virus 2017-12-14 Completed [facility] of Vaccine [facility] IM 3+ 00:00:00 [facility] Influenza Virus 2017-12-14 Completed [facility] Vaccine [facility] IM 3+ 00:00:00 [facility] Influenza Virus 2017-12-14 Completed [facility] of Vaccine [facility] IM 3+ 00:00:00 [facility] Influenza Virus 2017-12-14 Completed [facility] of Vaccine [facility] IM 3+ 00:00:00 [facility] Influenza Virus 2017-12-14 Completed [facility] of Vaccine [facility] IM 3+ 00:00:00 [facility] Influenza Virus 2017-12-14 Completed [facility] of Vaccine [facility] IM 3+ 00:00:00 [facility] Influenza Virus 2017-12-14 Completed [facility] IM 3+ 00:00:00 [facility] Varicella 2016-05-24 Completed [facility] (varivax)(chicken 00:00:00 [facility] Varicella 2016-05-24 Completed [facility] (varivax)(chicken 00:00:00 [facility] Varicella 2016-05-24 Completed [facility] (varivax)(chicken 00:00:00 [facility] Varicella 2016-05-24 Completed [facility] (varivax)(chicken 00:00:00 [facility] Varicella 2016-05-24 Completed [facility] (varivax)(chicken 00:00:00 [facility] Varicella 2016-05-24 Completed [facility] (varivax)(chicken 00:00:00 [facility] Varicella 2016-05-24 Completed [facility] (varivax)(chicken 00:00:00 [facility] Varicella 2016-05-24 Completed [facility] (varivax)(chicken 00:00:00 [facility] Varicella 2016-05-24 Completed [facility] (varivax)(chicken 00:00:00 [facility] Varicella 2016-05-24 Completed [facility] (varivax)(chicken 00:00:00 [facility] Varicella 2016-05-24 Completed [facility] (varivax)(chicken 00:00:00 [facility] Varicella 2016-05-24 Completed [facility] (varivax)(chicken 00:00:00 [facility] Varicella 2016-05-24 Completed [facility] (varivax)(chicken 00:00:00 [facility] Varicella 2016-05-24 Completed [facility] (varivax)(chicken 00:00:00 [facility] Varicella 2016-05-24 Completed [facility] (varivax)(chicken 00:00:00 [facility] Varicella 2016-05-24 Completed [facility] (varivax)(chicken 00:00:00 [facility] Varicella 2016-05-24 Completed [facility] (varivax)(chicken 00:00:00 [facility] Varicella 2016-05-24 Completed [facility] (varivax)(chicken 00:00:00 [facility] Varicella 2016-05-24 Completed [facility] (varivax)(chicken 00:00:00 [facility] Varicella 2016-05-24 Completed [facility] (varivax)(chicken 00:00:00 [facility] Varicella 2016-05-24 Completed [facility] (varivax)(chicken 00:00:00 [facility] Varicella 2016-05-24 Completed [facility] (varivax)(chicken 00:00:00 [facility] Varicella 2016-05-24 Completed [facility] (varivax)(chicken 00:00:00 [facility] Varicella 2016-05-24 Completed [facility] (varivax)(chicken 00:00:00 [facility] Varicella 2016-05-24 Completed [facility] (varivax)(chicken 00:00:00 [facility] Varicella 2016-05-24 Completed [facility] (varivax)(chicken 00:00:00 [facility] Varicella 2016-05-24 Completed [facility] (varivax)(chicken 00:00:00 [facility] Varicella 2016-05-24 Completed [facility] (varivax)(chicken 00:00:00 [facility] Varicella 2016-05-24 Completed [facility] (varivax)(chicken 00:00:00 [facility] Varicella 2016-05-24 Completed [facility] (varivax)(chicken 00:00:00 [facility] Varicella 2016-05-24 Completed [facility] (varivax)(chicken 00:00:00 [facility] Varicella 2016-05-24 Completed [facility] (varivax)(chicken 00:00:00 [facility] Varicella 2016-05-24 Completed [facility] (varivax)(chicken 00:00:00 [facility] Varicella 2016-05-24 Completed [facility] (varivax)(chicken 00:00:00 [facility] Varicella 2016-05-24 Completed [facility] (varivax)(chicken 00:00:00 [facility] Varicella 2016-05-24 Completed [facility] (varivax)(chicken 00:00:00 [place] [facility] Varicella 2016-05-24 Completed [facility] (varivax)(chicken 00:00:00 [place] [facility] Varicella 2016-05-24 Completed [facility] (varivax)(chicken 00:00:00 [place] [facility] Varicella 2016-05-24 Completed [facility] (varivax)(chicken 00:00:00 [place] [facility] Varicella 2016-05-24 Completed [facility] (varivax)(chicken 00:00:00 [place] [facility] Varicella 2016-05-24 Completed [facility] (varivax)(chicken 00:00:00 [place] [facility] Varicella 2016-05-24 Completed [facility] (varivax)(chicken 00:00:00 [place] [facility] Varicella 2016-05-24 Completed [facility] (varivax)(chicken 00:00:00 [place] [facility] Varicella 2016-05-24 Completed [facility] (varivax)(chicken 00:00:00 [place] [facility] Varicella 2016-05-24 Completed [facility] (varivax)(chicken 00:00:00 [place] [facility] Varicella 2016-05-24 Completed [facility] (varivax)(chicken 00:00:00 [place] [facility] Varicella 2016-05-24 Completed [facility] (varivax)(chicken 00:00:00 [place] [facility] Varicella 2016-05-24 Completed [facility] (varivax)(chicken 00:00:00 [place] [facility] Varicella 2016-05-24 Completed [facility] (varivax)(chicken 00:00:00 [place] [facility] Varicella 2016-05-24 Completed [facility] (varivax)(chicken 00:00:00 [facility] Varicella 2016-05-24 Completed [facility] (varivax)(chicken 00:00:00 [facility] Varicella 2016-05-24 Completed [facility] (varivax)(chicken 00:00:00 [place] [facility] Varicella 2016-05-24 Completed [facility] (varivax)(chicken 00:00:00 [place] [facility] Varicella 2016-05-24 Completed [facility] (varivax)(chicken 00:00:00 [place] [facility] Varicella 2016-05-24 Completed [facility] (varivax)(chicken 00:00:00 [place] [facility] Varicella 2016-05-24 Completed [facility] (varivax)(chicken 00:00:00 [place] [facility] Varicella 2016-05-24 Completed [facility] (varivax)(chicken 00:00:00 [place] [facility] Varicella 2016-05-24 Completed [facility] (varivax)(chicken 00:00:00 [place] [facility] Varicella 2016-05-24 Completed [facility] (varivax)(chicken 00:00:00 [place] [facility] Varicella 2016-05-24 Completed [facility] (varivax)(chicken 00:00:00 [place] [facility] Varicella 2016-05-24 Completed [facility] (varivax)(chicken 00:00:00 [place] [facility] Varicella 2016-05-24 Completed [facility] (varivax)(chicken 00:00:00 [place] [facility] Varicella 2016-05-24 Completed [facility] (varivax)(chicken 00:00:00 [place] [facility] Varicella 2016-05-24 Completed [facility] (varivax)(chicken 00:00:00 [place] [facility] Varicella 2016-05-24 Completed [facility] (varivax)(chicken 00:00:00 [place] [facility] Varicella 2016-05-24 Completed [facility] (varivax)(chicken 00:00:00 [place] [facility] Varicella 2016-05-24 Completed [facility] (varivax)(chicken 00:00:00 [place] [facility] Varicella 2016-05-24 Completed [facility] (varivax)(chicken 00:00:00 [place] [facility] Varicella 2016-05-24 Completed [facility] (varivax)(chicken 00:00:00 [place] [facility] Varicella 2016-05-24 Completed [facility] (varivax)(chicken 00:00:00 [place] [facility] Varicella 2016-05-24 Completed [facility] (varivax)(chicken 00:00:00 [place] [facility] Varicella 2016-05-24 Completed [facility] (varivax)(chicken 00:00:00 [place] [facility] Varicella 2016-05-24 Completed [facility] (varivax)(chicken 00:00:00 [place] [facility] Varicella 2016-05-24 Completed [facility] (varivax)(chicken 00:00:00 [place] [facility] Varicella 2016-05-24 Completed [facility] (varivax)(chicken 00:00:00 [place] [facility] Varicella 2016-05-24 Completed [facility] (varivax)(chicken 00:00:00 [place] [facility] Varicella 2016-05-24 Completed [facility] (varivax)(chicken 00:00:00 [place] [facility] Varicella 2016-05-24 Completed [facility] (varivax)(chicken 00:00:00 [place] [facility] Varicella 2016-05-24 Completed [facility] (varivax)(chicken 00:00:00 [place] [facility] Varicella 2016-05-24 Completed [facility] (varivax)(chicken 00:00:00 [place] [facility] Varicella 2016-05-24 Completed [facility] (varivax)(chicken 00:00:00 [place] [facility] TDAP 2016-04-03 Completed [facility] 00:00:00 [facility] TDAP 2016-04-03 Completed [facility] 00:00:00 [facility] TDAP 2016-04-03 Completed [facility] of 00:00:00 [facility] TDAP 2016-04-03 Completed [facility] of 00:00:00 [facility] TDAP 2016-04-03 Completed [facility] of 00:00:00 [facility] TDAP 2016-04-03 Completed [facility] of 00:00:00 [facility] TDAP 2016-04-03 Completed [facility] 00[facility]00:00 [facility] TDAP 2016-04-03 Completed [facility] 00:00:00 [facility] TDAP 2016-04-03 [facility] TDAP 2016-04-03 Completed [facility] 00:00:00 [facility] TDAP 2016-04-03 Completed [facility] of 00:00:00 [facility] TDAP 2016-04-03 Completed [facility] of 00:00:00 [facility] TDAP 2016-04-03 Completed [facility] 00:00:00 [facility] TDAP 2016-04-03 Completed [facility] 00:00:00 [facility] TDAP 2016-04-03 [facility] 00:00:00 [facility] TDAP 2016-04-03 Completed [facility] of 00:00:00 [facility] TDAP 2016-04-03 Completed [facility] of 00:00:00 [facility] TDAP 2016-04-03 Completed [facility] of 00:00:00 [facility] TDAP 2016-04-03 Completed [facility] of 00:00:00 [facility] TDAP 2016-04-03 Completed [facility] of 00:00:00 [facility] TDAP 2016-04-03 Completed [facility] of 00:00:00 [facility] TDAP 2016-04-03 Completed [facility] of 00:00:00 [facility] TDAP 2016-04-03 Completed [facility] of 00:00:00 [facility] TDAP 2016-04-03 Completed [facility] of 00:00:00 [facility] TDAP 2016-04-03 Completed [facility] of 00:00:00 [facility] TDAP 2016-04-03 Completed [facility] 00:00:00 [facility] TDAP 2016-04-03 Completed [facility] 00:00:00 [facility] TDAP 2016-04-03 Completed [facility] 00:00:00 [facility] TDAP 2016-04-03 Completed [facility] of 00:00:00 [facility] TDAP 2016-04-03 Completed [facility] of 00:00:00 [facility] TDAP 2016-04-03 Completed [facility] of 00:00:00 [facility] TDAP 2016-04-03 Completed [facility] of 00:00:00 [facility] TDAP 2016-04-03 Completed [facility] of 00:00:00 [facility] TDAP 2016-04-03 Completed [facility] of 00:00:00 [facility] TDAP 2016-04-03 Completed [facility] of 00:00:00 [facility] TDAP 2016-04-03 Completed [facility] of 00:00:00 [facility] TDAP 2016-04-03 Completed [facility] of 00:00:00 [facility] TDAP 2016-04-03 Completed [facility] of 00:00:00 [facility] TDAP 2016-04-03 Completed [facility] of 00:00:00 [facility] TDAP 2016-04-03 Completed [facility] of 00:00:00 [facility] TDAP 2016-04-03 Completed [facility] of 00:00:00 [facility] TDAP 2016-04-03 Completed [facility] of 00:00:00 [facility] TDAP 2016-04-03 Completed [facility] of 00:00:00 [facility] TDAP 2016-04-03 Completed [facility] Branch Tdap 2016-04-03 Completed [facility] 00:00:00 [facility] Tdap 2016-04-03 Completed [facility] of 00:00:00 [facility] Tdap 2016-04-03 Completed [facility] 00:00:00 [facility] Tdap 2016-04-03 Completed [facility] of 00:00:00 [facility] Tdap 2016-04-03 Completed [facility] 00:00:00 [facility] Tdap 2016-04-03 Completed [facility] of 00:00:00 [facility] Tdap 2016-04-03 Completed [facility] of 00:00:00 [facility] Tdap 2016-04-03 Completed [facility] of 00:00:00 [facility] Tdap 2016-04-03 Completed [facility] of 00:00:00 [facility] Tdap 2016-04-03 Completed [facility] of 00:00:00 [facility] Tdap 2016-04-03 Completed [facility] of 00:00:00 [facility] Tdap 2016-04-03 Completed [facility] of 00:00:00 [facility] Tdap 2016-04-03 Completed [facility] 00:00:00 [facility] Tdap 2016-04-03 Completed [facility] of 00:00:00 [facility] Tdap 2016-04-03 Completed [facility] of 00:00:00 [facility] Tdap 2016-04-03 Completed [facility] 00:00:00 [facility] Tdap 2016-04-03 Completed [facility] of 00:00:00 [facility] Tdap 2016-04-03 Completed [facility] of 00:00:00 [facility] Tdap 2016-04-03 Completed [facility] of 00:00:00 [facility] Tdap 2016-04-03 Completed [facility] of 00:00:00 [facility] Tdap 2016-04-03 Completed [facility] 00:00:00 [facility] Tdap 2016-04-03 Completed [facility] 00:00:00 [facility] Tdap 2016-04-03 Completed [facility] 00:00:00 [facility] Tdap 2016-04-03 Completed [facility] 00:00:00 [facility] Tdap 2016-04-03 Completed [facility] of 00:00:00 [facility] Tdap 2016-04-03 Completed [facility] of 00:00:00 [facility] Tdap 2016-04-03 Completed [facility] 00:00:00 [facility] TDAP 2016-04-03 Completed [facility] of 00:00:00 [facility] TDAP 2016-04-03 Completed [facility] 00:00:00 [facility] TDAP 2016-04-03 Completed [facility] 00:00:00 [facility] TDAP 2016-04-03 Completed [facility] 00:00:00 [facility] TDAP 2016-04-03 Completed [facility] of 00:00:00 [facility] TDAP 2016-04-03 Completed [facility] 00:00:00 [facility] TDAP 2016-04-03 Completed [facility] of 00:00:00 [facility] TDAP 2016-04-03 Completed [facility] of 00:00:00 [facility] Rho (d) Immune 2016-03-27 Completed University of Globulin 00:00:00 [facility] Rho (d) Immune 2016-03-27 Completed [facility] of Gl[facility] 00:00:00 [facility] Rho (d) Immune 2016-03-27 Completed [facility] 00:00:00 [facility] Rho (d) Immune 2016-03-27 Completed [facility] 00:00:00 [facility] Rho (d) Immune 2016-03-27 Completed [facility] 00:00:00 [facility] Rho (d) Immune 2016-03-27 Completed [facility] 00:00:00 [facility] Rho (d) Immune 2016-03-27 Completed [facility] 00:00:00 [facility] Rho (d) Immune 2016-03-27 Completed [facility] 00:00:00 [facility] Rho (d) Immune 2016-03-27 Completed [facility] 00:00:00 [facility] Rho (d) Immune 2016-03-27 Completed [facility] 00:00:00 [facility] Rho (d) Immune 2016-03-27 Completed [facility] 00:00:00 [facility] Rho (d) Immune 2016-03-27 Completed [facility] 00:00:00 [facility] Rho (d) Immune 2016-03-27 Completed [facility] 00:00:00 [facility] Rho (d) Immune 2016-03-27 Completed [facility] 00:00:00 [facility] Rho (d) Immune 2016-03-27 Completed [facility] 00:00:00 [facility] Rho (d) Immune 2016-03-27 Completed [facility] 00:00:00 [facility] Rho (d) Immune 2016-03-27 Completed [facility] 00:00:00 [facility] Rho (d) Immune 2016-03-27 Completed [facility] Globulin 00:00:00 [facility] Rho (d) Immune 2016-03-27 Completed [facility] Gl[facility] 00:00:00 [facility] Rho (d) Immune 2016-03-27 Completed [facility] 00:00:00 [facility] Rho (d) Immune 2016-03-27 Completed [facility] Gl[facility]ulin 00:00:00 [facility] Rho (d) Immune 2016-03-27 Completed [facility] 00:00:00 [facility] Rho (d) Immune 2016-03-27 Completed [facility] 00:00:00 [facility] Rho (d) Immune 2016-03-27 Completed [facility] 00:00:00 [facility] Rho (d) Immune 2016-03-27 Completed [facility] 00:00:00 [facility] Rho (d) Immune 2016-03-27 Completed [facility] 00:00:00 [facility] Rho (d) Immune 2016-03-27 Completed [facility] 00:00:00 [facility] Rho (d) Immune 2016-03-27 Completed [facility] 00:00:00 [facility] Rho (d) Immune 2016-03-27 Completed [facility] 00:00:00 [facility] Rho (d) Immune 2016-03-27 Completed [facility] 00:00:00 [facility] Rho (d) Immune 2016-03-27 Completed [facility] 00:00:00 [facility] Rho (d) Immune 2016-03-27 Completed [facility] 00:00:00 [facility] Rho (d) Immune 2016-03-27 Completed [facility] 00:00:00 [facility] Rho (d) Immune 2016-03-27 Completed [facility] 00:00:00 [facility] Rho (d) Immune 2016-03-27 Completed [facility] 00:00:00 [facility] Rho (d) Immune 2016-03-27 Completed [facility] 00:00:00 [facility] Rho (d) Immune 2016-03-27 Completed [facility] 00:00:00 [facility] Rho (d) Immune 2016-03-27 Completed [facility] 00:00:00 [facility] Rho (d) Immune 2016-03-27 Completed [facility] 00:00:00 [facility] Rho (d) Immune 2016-03-27 Completed [facility] 00:00:00 [facility] Rho (d) Immune 2016-03-27 Completed [facility] 00:00:00 [facility] Rho (d) Immune 2016-03-27 Completed [facility] 00:00:00 [facility] Rho (d) Immune 2016-03-27 Completed [facility] 00:00:00 [facility] Rho (d) Immune 2016-03-27 Completed [facility] 00:00:00 [facility] Rho (d) Immune 2016-03-27 Completed [facility] 00:00:00 [facility] Rho (d) Immune 2016-03-27 Completed [facility] 00:00:00 [facility] Rho (d) Immune 2016-03-27 Completed [facility] 00:00:00 [facility] Rho (d) Immune 2016-03-27 Completed [facility] 00:00:00 [facility] Rho (d) Immune 2016-03-27 Completed [facility] 00:00:00 [facility] Rho (d) Immune 2016-03-27 Completed [facility] 00:00:00 [facility] Rho (d) Immune 2016-03-27 Completed [facility] 00:00:00 [facility] Rho (d) Immune 2016-03-27 Completed [facility] 00:00:00 [facility] Rho (d) Immune 2016-03-27 Completed [facility] 00:00:00 [facility] Rho (d) Immune 2016-03-27 Completed [facility] 00:00:00 [facility] Rho (d) Immune 2016-03-27 Completed [facility] 00:00:00 [facility] Rho (d) Immune 2016-03-27 Completed [facility] 00:00:00 [facility] Rho (d) Immune 2016-03-27 Completed [facility] 00:00:00 [facility] Rho (d) Immune 2016-03-27 Completed [facility] 00:00:00 [facility] Rho (d) Immune 2016-03-27 Completed [facility] 00:00:00 [facility] Rho (d) Immune 2016-03-27 Completed [facility] 00:00:00 [facility] Rho (d) Immune 2016-03-27 Completed [facility] 00:00:00 [facility] Rho (d) Immune 2016-03-27 Completed [facility] 00:00:00 [facility] Rho (d) Immune 2016-03-27 Completed [facility] 00:00:00 [facility] Rho (d) Immune 2016-03-27 Completed [facility] 00:00:00 [facility] Rho (d) Immune 2016-03-27 Completed [facility] 00:00:00 [facility] Rho (d) Immune 2016-03-27 Completed [facility] 00:00:00 [facility] Rho (d) Immune 2016-03-27 Completed [facility] 00:00:00 [facility] Rho (d) Immune 2016-03-27 Completed [facility] 00:00:00 [facility] Rho (d) Immune 2016-03-27 Completed [facility] Gl[facility]ulin 00:00:00 [facility] Rho (d) Immune 2016-03-27 Completed [facility] Globulin 00:00:00 [facility] Rho (d) Immune 2016-03-27 Completed [facility] Gl[facility]ulin 00:00:00 [facility] Rho (d) Immune 2016-03-27 Completed [facility] Gl[facility]ulin 00:00:00 [facility] Rho (d) Immune 2016-03-27 Completed [facility] Gl[facility]ulin 00:00:00 [facility] Rho (d) Immune 2016-03-27 Completed [facility] 00:00:00 [facility] Rho (d) Immune 2016-03-27 Completed [facility] Gl[facility] 00:00:00 [facility] Rho (d) Immune 2016-03-27 Completed [facility] 00:00:00 [facility] Rho (d) Immune 2016-03-27 Completed [facility] Gl[facility]ulin 00:00:00 [facility] Rho (d) Immune 2016-03-27 Completed [facility] 00:00:00 [facility] Rho (d) Immune 2016-03-27 Completed [facility] Gl[facility] 00:00:00 [facility] Rho (d) Immune 2016-03-27 Completed [facility] 00:00:00 [facility] Rho (d) Immune 2016-03-27 Completed [facility]ulin 00:00:00 [facility] Vital Signs Vital Name Observation Time Observation Value Comments Source HEIGHT 2020-09-22 06:00:00 152.4 cm WEIGHT 2020-09-22 06:00:00 80.8 kg HEIGHT 2020-09-21 19:00:00 152.4 cm WEIGHT 2020-09-21 19:00:00 80.786 kg Systolic blood 2020-11-26 13:09:00 118 mm[Hg] Univer sity of pressure [facility] Diastolic blood 2020-11-26 13:09:00 75 mm[Hg] Unive rsity of pressure [facility] Heart rate 2020-11-26 13:09:00 72 /min [facility] Body height 2020-11-26 13:09:00 160 cm [facility] Body weight 2020-11-26 13:09:00 81.647 kg [facility] BMI 2020-11-26 13:09:00 31.89 kg/m2 [facility] Oxygen saturation in 2020-11-26 13:09:00 100 /min University of Arterial blood by [facility] Pulse oximetry Branch Systolic blood 2020-11-01 18:58:00 136 mm[Hg] Univer sity of pressure [facility] Diastolic blood 2020-11-01 18:58:00 83 mm[Hg] Unive rsity of pressure [facility] Heart rate 2020-11-01 18:58:00 65 /min [facility]i ty [facility] Body temperature 2020-11-01 18:58:00 37.06 Shira Univ ersity of [facility] Respiratory rate 2020-11-01 18:58:00 18 /min Univ ersity of [facility] Body height 2020-11-01 18:58:00 160 cm [facility] Body weight 2020-11-01 18:58:00 80.377 kg [facility] BMI 2020-11-01 18:58:00 31.39 kg/m2 [facility] Oxygen saturation in 2020-11-01 18:58:00 100 /min [facility] of Arterial blood by [facility] Pulse oximetry Branch Systolic blood 2020-10-09 20:57:00 121 mm[Hg] Univer sity of pressure [facility] Diastolic blood 2020-10-09 20:57:00 72 mm[Hg] Unive rsity of pressure [facility] Heart rate 2020-10-09 20:57:00 75 /min [facility] Body temperature 2020-10-09 20:57:00 36.61 Shira Univ [facility] Respiratory rate 2020-10-09 20:57:00 16 /min Univ ersity of [facility] Body height 2020-10-09 20:57:00 160 cm [facility] Body weight 2020-10-09 20:57:00 81.421 kg [facility] BMI 2020-10-09 20:57:00 31.80 kg/m2 [facility] Systolic blood 2020-10-09 20:57:00 121 mm[Hg] Univer sity of pressure [facility] Diastolic blood 2020-10-09 20:57:00 72 mm[Hg] Unive rsity of pressure [facility] Heart rate 2020-10-09 20:57:00 75 /min [facility] Body temperature 2020-10-09 20:57:00 36.61 Shira [facility] Respiratory rate 2020-10-09 20:57:00 16 /min Univ ersity of [facility] Body height 2020-10-09 20:57:00 160 cm [facility] Body weight 2020-10-09 20:57:00 81.421 kg [facility] BMI 2020-10-09 20:57:00 31.80 kg/m2 [facility] Systolic blood 2020-10-05 09:00:00 115 mm[Hg] Univer sity of pressure [facility] Diastolic blood 2020-10-05 09:00:00 68 mm[Hg] Unive rsity of pressure [facility] Heart rate 2020-10-05 09:00:00 70 /min [facility] Body temperature 2020-10-05 09:00:00 36.56 Shira [facility] ersity of [facility] Respiratory rate 2020-10-05 09:00:00 18 /min Univ ersity of [facility] Oxygen saturation in 2020-10-05 09:00:00 98 /min [facility] Arterial blood by [facility] Pulse oximetry Branch Body height 2020-10-01 14:40:00 160 cm [facility] Body weight 2020-10-01 14:40:00 79.379 kg [facility] BMI 2020-10-01 14:40:00 31.00 kg/m2 [facility] HEIGHT 2020-09-22 06:00:00 152.4 cm WEIGHT 2020-09-22 06:00:00 80.8 kg HEIGHT 2020-09-21 19:00:00 152.4 cm WEIGHT 2020-09-21 19:00:00 80.786 kg Systolic blood 2020-09-15 05:45:58 155 mm[Hg] Univer sity of pressure [facility] Diastolic blood 2020-09-15 05:45:58 102 mm[Hg] Unive rsity of pressure [facility] Heart rate 2020-09-15 05:45:58 95 /min [facility] Respiratory rate 2020-09-15 05:45:58 19 /min Univ ersity of [facility] Oxygen saturation in 2020-09-15 05:45:58 98 /min [facility] Arterial blood by [facility] Pulse oximetry Branch Body temperature 2020-09-15 02:54:00 36.67 Shira [facility] Body weight 2020-09-15 02:54:00 79.379 kg [facility] BMI 2020-09-15 02:54:00 31.00 kg/m2 [facility] Systolic blood 2020-09-13 05:00:00 110 mm[Hg] Univer sity of pressure [facility] Diastolic blood 2020-09-13 05:00:00 56 mm[Hg] Unive rsity of [facility] Heart rate 2020-09-13 05:00:00 100 /min [facility] Body temperature 2020-09-13 05:00:00 37.33 Shira [facility] Respiratory rate 2020-09-13 05:00:00 18 /min Univ ersity of [facility] Oxygen saturation in 2020-09-13 04:00:00 100 /min [facility] Arterial blood by [facility] Pulse oximetry Branch Body height 2020-09-13 00:48:00 160 cm [facility] Body weight 2020-09-13 00:48:00 78.019 kg [facility] BMI 2020-09-13 00:48:00 30.47 kg/m2 [facility] Systolic blood 2020-09-12 02:30:00 126 mm[Hg] Univer sity of pressure [facility] Diastolic blood 2020-09-12 02:30:00 80 mm[Hg] Unive rsity of pressure [facility] Heart rate 2020-09-12 02:30:00 103 /min [facility] Respiratory rate 2020-09-12 02:30:00 21 /min Univ ersity of [facility] Oxygen saturation in 2020-09-12 02:30:00 98 /min [facility] Arterial blood by [facility] Pulse oxim[facility] Body temperature 2020-09-12 01:33:00 37.72 Shira [facility] Body height 2020-09-12 01:33:00 160 cm [facility] Body weight 2020-09-12 01:33:00 77.111 kg [facility] BMI 2020-09-12 01:33:00 30.11 kg/m2 [facility] Systolic blood 2020-08-31 17:00:00 121 mm[Hg] Univer sity of pressure [facility] Diastolic blood 2020-08-31 17:00:00 76 mm[Hg] Unive rsity of pressure [facility] Heart rate 2020-08-31 17:00:00 71 /min [facility] Respiratory rate 2020-08-31 17:00:00 12 /min Univ ersity of [facility] Oxygen saturation in 2020-08-31 17:00:00 97 /min [facility] Arterial blood by [place] [facility] Body temperature 2020-08-31 16:20:00 38.5 Shira [facility] Body weight 2020-08-31 16:20:00 77.111 kg [facility] BMI 2020-08-31 16:20:00 30.11 kg/m2 [facility] Systolic blood 2020-08-30 04:04:21 139 mm[Hg] Univer sity of pressure [facility] Diastolic blood 2020-08-30 04:04:21 78 mm[Hg] Unive rsity of pressure [facility] Heart rate 2020-08-30 04:04:21 83 /min [facility] Body temperature 2020-08-30 04:04:21 37.72 Shira [facility] Respiratory rate 2020-08-30 04:04:21 19 /min Univ ersity of [facility] Oxygen saturation in 2020-08-30 04:04:21 99 /min [facility] of Arterial blood by [employer] [facility] Pulse oxim[facility] Body height 2020-08-30 01:45:00 160 cm [facility] Body weight 2020-08-30 01:45:00 77.111 kg [facility] BMI 2020-08-30 01:45:00 30.11 kg/m2 [facility] Systolic blood 2020-06-07 16:00:00 127 mm[Hg] Univer sity of pressure [facility] Diastolic blood 2020-06-07 16:00:00 73 mm[Hg] Unive rsity of pressure [facility] Heart rate 2020-06-07 16:00:00 86 /min [facility] Body temperature 2020-06-07 16:00:00 37.39 Shira [facility] Respiratory rate 2020-06-07 16:00:00 16 /min Univ ersity [facility] Body height 2020-06-07 16:00:00 162.6 cm [facility] Body weight 2020-06-07 16:00:00 73.539 kg [facility] BMI 2020-06-07 16:00:00 27.83 kg/m2 [facility] Systolic blood 2020-05-14 01:03:00 140 mm[Hg] Univer sity of pressure [facility] Diastolic blood 2020-05-14 01:03:00 97 mm[Hg] Unive rsity of pressure [facility] Heart rate 2020-05-14 01:03:00 89 /min [facility] Body temperature 2020-05-14 01:03:00 37.33 Shira [facility] Respiratory rate 2020-05-14 01:03:00 20 /min Univ [facility] Body height 2020-05-14 01:03:00 162.6 cm [facility] Body weight 2020-05-14 01:03:00 73.483 kg [facility] BMI 2020-05-14 01:03:00 27.81 kg/m2 [facility] Oxygen saturation in 2020-05-14 01:03:00 100 /min University Arterial blood by [facility] Pulse oximetry Branch Systolic blood 2020-01-17 19:49:00 123 mm[Hg] Univer sity of pressure [facility] Diastolic blood 2020-01-17 19:49:00 73 mm[Hg] Unive rsity of pressure [facility] Heart rate 2020-01-17 19:49:00 75 /min [facility] Body temperature 2020-01-17 19:49:00 37.39 Shira [facility] Respiratory rate 2020-01-17 19:49:00 16 /min Univ ersity [facility] Body height 2020-01-17 19:49:00 160 cm [facility] Body weight 2020-01-17 19:49:00 86.183 kg [facility] BMI 2020-01-17 19:49:00 33.66 kg/m2 [facility] Systolic blood 2019-12-30 15:30:00 133 mm[Hg] Univer sity of pressure [facility] Diastolic blood 2019-12-30 15:30:00 84 mm[Hg] Unive rsity of pressure [facility] Heart rate 2019-12-30 15:30:00 98 /min [facility] Body temperature 2019-12-30 15:30:00 36.56 Shira [facility] Respiratory rate 2019-12-30 15:30:00 16 /min Univ [facility]ity [facility] Body height 2019-12-30 15:30:00 162.6 cm [facility] Body weight 2019-12-30 15:30:00 84.936 kg [facility] BMI 2019-12-30 15:30:00 32.14 kg/m2 [facility] Systolic blood 2019-12-20 18:23:00 123 mm[Hg] Univer sity of pressure [facility] Diastolic blood 2019-12-20 18:23:00 76 mm[Hg] Unive rsity of pressure [facility] Heart rate 2019-12-20 18:23:00 83 /min [facility] Body temperature 2019-12-20 18:23:00 36.89 Shira [facility] Respiratory rate 2019-12-20 18:23:00 16 /min Univ [facility]ity [facility] Body height 2019-12-20 18:23:00 160 cm [facility] Body weight 2019-12-20 18:23:00 85.911 kg [facility] BMI 2019-12-20 18:23:00 33.55 kg/m2 [facility] Systolic blood 2019-09-27 19:20:00 129 mm[Hg] Univer sity of pressure [facility] Diastolic blood 2019-09-27 19:20:00 71 mm[Hg] Unive rsity of pressure [facility] Heart rate 2019-09-27 19:20:00 99 /min Universi ty of [facility] Body temperature 2019-09-27 19:20:00 36.44 Shira Univ ersity of [facility] Respiratory rate 2019-09-27 19:20:00 16 /min Univ ersity of [facility] Body height 2019-09-27 19:20:00 162.6 cm [facility] [place] Body weight 2019-09-27 19:20:00 85.787 kg Universi ty of [facility] BMI 2019-09-27 19:20:00 32.46 kg/m2 Universi ty of [facility] Systolic blood 2019-08-18 16:00:00 109 mm[Hg] Univer sity of pressure [facility] Diastolic blood 2019-08-18 16:00:00 66 mm[Hg] Unive rsity of pressure [facility] Heart rate 2019-08-18 16:00:00 83 /min [facility] Respiratory rate 2019-08-18 16:00:00 18 /min Univ ersity of [facility] Oxygen saturation in 2019-08-18 16:00:00 99 /min [facility] Arterial blood by [facility] Pulse oximetry [place] Body temperature 2019-08-18 13:21:00 36.56 Shira Univ ersity of [facility] Body height 2019-08-18 13:21:00 162.6 cm Universi ty of [facility] Body weight 2019-08-18 13:21:00 77.111 kg [facility] BMI 2019-08-18 13:21:00 29.18 kg/m2 Universi ty of [facility] Systolic blood 2019-07-29 04:27:00 134 mm[Hg] Univer sity of pressure [facility] Diastolic blood 2019-07-29 04:27:00 80 mm[Hg] Unive rsity of pressure [facility] Heart rate 2019-07-29 04:27:00 80 /min Universi ty of [facility] Respiratory rate 2019-07-29 04:27:00 18 /min Univ ersity of [facility] Oxygen saturation in 2019-07-29 04:27:00 98 /min [facility] of Arterial blood by [facility]ressa Pulse oximetry Branch Body temperature 2019-07-28 22:32:00 37.22 Shira Univ [facility] Body height 2019-07-28 22:32:00 162.6 cm [facility] Body weight 2019-07-28 22:32:00 81.647 kg [facility] BMI 2019-07-28 22:32:00 30.90 kg/m2 Universi ty of [facility] Systolic blood 2019-06-27 02:00:00 122 mm[Hg] Univer sity of pressure [facility] Diastolic blood 2019-06-27 02:00:00 65 mm[Hg] Unive rsity of pressure [facility] Heart rate 2019-06-27 02:00:00 98 /min [facility] Respiratory rate 2019-06-27 02:00:00 18 /min Univ ersity of [facility] Oxygen saturation in 2019-06-27 02:00:00 99 /min University of Arterial blood by [facility] tressa Pulse oximetry Branch Body temperature 2019-06-27 00:13:46 36.83 Shira Univ [facility] Body height 2019-06-27 00:10:00 160 cm [facility] Body weight 2019-06-27 00:10:00 79.379 kg [facility] [place] [facility] BMI 2019-06-27 00:10:00 31.00 kg/m2 [facility] [place] [facility] Systolic blood 2019-05-17 18:28:00 127 mm[Hg] Univer [facility]ity [facility] [place] [facility] Diastolic blood 2019-05-17 18:28:00 68 mm[Hg] Unive rsity of [facility] Heart rate 2019-05-17 18:28:00 75 /min [facility] Body temperature 2019-05-17 18:28:00 36.89 Shira [facility] Respiratory rate 2019-05-17 18:28:00 16 /min Univ [facility] Body height 2019-05-17 18:28:00 162.6 cm [facility] [place] [facility] [place] Body weight 2019-05-17 18:28:00 79.635 kg [facility] [place] [facility] BMI 2019-05-17 18:28:00 30.14 kg/m2 [facility] Systolic blood 2019-04-20 17:06:00 134 mm[Hg] Univer sity of [facility] Diastolic blood 2019-04-20 17:06:00 76 mm[Hg] Unive rsity of pressure [facility] Heart rate 2019-04-20 17:06:00 112 /min [facility] Body temperature 2019-04-20 17:06:00 37.33 Shira [facility] Respiratory rate 2019-04-20 17:06:00 18 /min [facility] Body weight 2019-04-20 17:06:00 81.647 kg [facility] BMI 2019-04-20 17:06:00 30.90 kg/m2 [facility] Oxygen saturation in 2019-04-20 17:06:00 98 /min [facility] Arterial blood by [facility] Pulse oximetry Branch Systolic blood 2019-03-21 22:03:00 139 mm[Hg] Univer sity of [facility] Diastolic blood 2019-03-21 22:03:00 81 mm[Hg] Unive rsity of pressure [facility] Heart rate 2019-03-21 22:03:00 93 /min [facility] Body temperature 2019-03-21 22:03:00 37.33 Shira [facility] Respiratory rate 2019-03-21 22:03:00 16 /min Univ ersity [facility] Body height 2019-03-21 22:03:00 162.6 cm [facility] Body weight 2019-03-21 22:03:00 76.233 kg [facility] BMI 2019-03-21 22:03:00 28.85 kg/m2 Universi ty [facility] Procedures Procedure Date / Time Performing Clinician Source Performed MR BRAIN W WO CONTRAST 2020-10-18 19:21:42 Suzie Frey [facility] ASSIGNMENT OF BENEFITS 2020-10-09 20:43:10 Doctor Unassigned, No [facility] LITHIUM 2020-10-05 10:05:00 Jacinto Parks [facility] HOSPITAL ADMISSION 2020-10-01 05:01:00 Doctor Unassigned, No Uni [facility]ity [facility] EPILEPSY MONITORING UNIT 2020-09-30 05:01:00 Doctor Unassigned, No [facility] ASSIGNMENT OF BENEFITS 2020-09-26 17:05:24 Doctor Unassigned, No [facility] POCT TEST 2020-09-15 04:50:00 Cheo Galvin [facility] CBC WITH DIFF 2020-09-15 04:14:00 Glenis, [facility] CREATINE KINASE 2020-09-15 04:03:00 Glenis [facility] COMP. METABOLIC PANEL 2020-09-15 04:03:00 Cheo Galvin [facility] ([id number]) [facility] ETHANOL 2020-09-15 04:03:00 Glenis, [facility] URINE DRUG (IMMUNOASSAY) 2020-09-15 04:03:00 Cheo Galvin [facility] SCREEN URINALYSIS 2020-09-15 04:03:00 Glenis, [facility] URINALYSIS 2020-08-31 17:10:00 Peace Paz [facility] POCT TEST 2020-08-31 17:08:00 Peace Paz [facility] COMP. METABOLIC PANEL 2020-08-31 16:30:00 Peace Paz [facility] ([id number]) [facility] CBC WITH DIFF 2020-08-31 16:30:00 Peace Paz [facility] LACTIC ACID WHOLE BLOOD 2020-08-31 16:30:00 Peace Paz [facility] POCT TEST 2020-08-30 02:44:00 Peace Paz [facility] URINALYSIS 2020-08-30 02:39:00 Peace Paz Yulia [facility] COVID-19 (ID NOW RAPID 2020-08-30 02:16:00 Peace Paz [facility] TESTING) Medical [place] NOTICE OF PRIVACY 2020-08-30 01:38:13 Doctor Unassigned, No Univ [facility] PRACTICES Name Medical Branch CONSENT/REFUSAL FOR 2020-08-30 01:31:54 Doctor Unassigned, No [facility] [place] DIAGNOSIS AND TREATMENT Name [facility] POCT URINALYSIS W/O 2020-06-07 16:03:00 Terrelljeanetteaure Alma C Uni [facility] SPECIFIC [facility] CT ABDOMEN PELVIS WO 2020-05-14 01:54:47 Peace Paz [facility] CONTRAST [facility] Branch COMP. METABOLIC PANEL 2020-05-14 01:30:00 Peace Paz [facility] ([id number]) Medical Branch CBC WITH DIFF 2020-05-14 01:30:00 Peace Paz [facility] URINALYSIS 2020-05-14 01:08:00 Peace Paz [facility] POCT TEST 2020-05-14 01:08:00 Peace Paz [facility] CONSENT/REFUSAL FOR 2020-05-14 00:21:36 Doctor Unassigned, No [facility] [place] [facility] Name [facility] GARDASIL 9 (HPV 9V) 2019-12-30 15:25:24 Abena Patel [facility] VACCINE [facility] GARDASIL 9 (HPV 9V) 2019-09-27 20:17:36 Abena Patel [facility] VACCINE [facility] POCT URINALYSIS W/O 2019-09-27 19:58:00 Abena Patel [facility] SPECIFIC [facility] POCT TEST 2019-09-27 19:41:00 Abena Patel [facility] XR CHEST 1 VW 2019-08-18 15:36:27 Raven Goldsmith [facility] COVID-19 (ID NOW RAPID 2019-08-18 14:07:00 Raven Goldsmith [facility] TESTING) Medical Branch RAPID STREP SCREEN FOR 2019-08-18 14:06:00 [facility] GROUP A Medical Branch TEST, SERUM 2019-08-18 14:05:00 Raven Goldsmith [facility] HEPATIC FUNCTION PANEL 2019-08-18 14:05:00 Raven Goldsmith [facility] ([id number]) (ALB,T.PRO,BILI Medical Branch T,BU/BC,ALT,AST,ALK PHOS) BASIC METABOLIC PANEL 2019-08-18 14:05:00 Raven Goldsmith [facility] (NA, K, CL, CO2, Medical Branch GLUCOSE, BUN, CREATININE, CA) CBC WITH DIFFERENTIAL 2019-08-18 14:05:00 Raven Goldsmith [facility] PROTHROMBIN TIME / INR 2019-08-18 14:05:00 Raven Goldsmith [facility] ACTIVATED PARTIAL 2019-08-18 14:05:00 Agus [facility] THRMPLAS ISABELL [facility] CONSENT/REFUSAL FOR 2019-08-18 13:01:15 Doctor Unassigned, No Un [facility] DIAGNOSIS AND TREATMENT Name Medical Branch CT CHEST PULMONARY 2019-07-29 04:01:04 Yovani Romero [facility] ANGIOGRAM Medical Branch TROPONIN I 2019-07-29 01:38:00 Nick [facility] COMP. METABOLIC PANEL 2019-07-29 01:38:00 Nick [facility] ([id number]) Medical Branch CBC WITH DIFFERENTIAL 2019-07-29 01:38:00 [facility] D-DIMER 2019-07-29 01:38:00 Nick [facility] XR CHEST 2 VW 2019-07-28 23:41:53 [facility] EKG-12 LEAD 2019-07-28 23:31:26 Nick [facility] POCT TEST 2019-07-28 23:19:00 Yovani Romero [facility] COVID-19 (ID NOW RAPID 2019-07-28 23:18:00 Yovani Romero [facility] TESTING) Medical Branch NOTICE OF PRIVACY 2019-07-28 22:13:33 Doctor Unassigned, No Univ [facility] PRACTICES Name Medical Branch CONSENT/REFUSAL FOR 2019-07-28 22:13:23 Doctor Unassigned, No [facility] Name Medical Branch CT ABDOMEN PELVIS WO 2019-06-27 01:06:22 Lory Pimentel [facility] CONTRAST [facility] POCT TEST 2019-06-27 00:37:00 Lory [facility]iment[facility] BASIC METABOLIC PANEL 2019-06-27 00:32:00 Lory Pimentel I U [facility] (NA, K, CL, CO2, Medical Branch GLUCOSE, BUN, CREATININE, CA) CBC WITH DIFFERENTIAL 2019-06-27 00:32:00 Lory [facility]imentel [facility] 2019-06-27 00:32:00 PimentelLory I [facility] GARD[facility]IL 9 (HPV 9V) 2019-05-17 18:42:52 Abena Patel [facility] VACCINE [facility] POCT URINALYSIS W/O 2019-05-17 18:32:00 Abena Patel [facility] SPECIFIC GRAVITY [facility] POCT TEST 2019-04-20 19:21:00 Raven Goldsmith [facility] URINALYSIS 2019-04-20 19:20:[address] [facility] ADC / LCC - DRUG SCREEN 2019-04-20 19:20:00 Peace Paz [facility] TRIAGE [facility] LIPASE 2019-04-20 17:45:[address] [facility] COMP. METABOLIC PANEL 2019-04-20 17:45:00 Raven Goldsmith [facility] ([id number]) [facility] CBC WITH DIFFERENTIAL 2019-04-20 17:45:00 [facility] HIV 1/2 AG-AB WITH 2019-03-21 22:15:00 Trever Katz [facility] REFLEX [facility] Plan of Care Planned Activity Planned Date Details Comments Source Future Scheduled Test COVID-19 VACCINE (1) [facility] [code = COVID-19 VACCINE (1)] Future Scheduled Test Hepatitis C screening [facility] (procedure) [code = 965439795] Future Scheduled Test Screening for [facility] malignant neoplasm of cervix (procedure) [code = 605322226] Future Scheduled Test INFLUENZA VACCINE M [facility] [code = INFLUENZA VACCINE] Future Scheduled Test CHLAMYDIA SCREENING [facility] [code = CHLAMYDIA SCREENING] Encounters Start End Encounter Admission Attending Care Care Encounter Source Date/Time Date/Time Type Type Clinicians Facility Department ID 2021-01-07 Emergency [facility] [id number] Univers 07:14:20 ity [facility] 2021-01-07 Emergency [facility] [id number] Univers 06:42:50 ity of [facility] 2021-01-07 Emergency [facility] [id number] Univers 06:25:23 ity of [facility] 2021-01-07 Emergency [facility] [id number] Univers 03:52:48 ity of [facility] 2021-01-07 Emergency [facility] [id number] Univers 03:25:06 ity of [facility] 2021-01-06 Emergency [facility] [id number] Univers 03:53:51 ity [facility] 2020-09-21 Inpatient ER TESHA, [facility] Gastro [id number] SLEH 19:23:00 JOANNE 2021-01-11 2021-01-11 Medical Office 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 114 [id number] Univers 10:24:34 10:39:34 Visit Abena Patel [id number] [facility] [id number] Dwayne as MATERNAL [phone] Med ical & CHILD [address] [place] [address] 2021-01-11 2021-01-11 Outpatient R [facility] [id number] Univers 10:30:00 10:30:00 [id number] ity [facility] 2021-01-11 2021-01-11 [facility] [id number] Univers 10:30:00 10:30:00 ABENA [facility] 2020-12-21 2020-12-21 [facility]phone [facility] 1.2.840.114 [id number] Univers 00:00:00 00:00:00 [facility] [id number] [facility] [id number] Dwayne as Jorge?Blea [phone] [place] anselmo [address] Medical Office [facility] 2020-12-18 2020-12-18 Outpatient R JORGE [facility] [id number] Univers 09:00:00 09:00:00 ABENA [id number] [facility] 2020-12-18 2020-12-18 Outpatient R JORGE [facility] [id number] Univers 09:00:00 09:00:00 ABENA [facility] 2020-11-28 2020-11-28 Outpatient R RAFI, [facility] [id number] Univers 14:00:00 14:00:00 BILAZALIA [id number] [facility] 2020-11-26 2020-11-26 Office [facility] 1.2.840.114 [id number] Univers 07:48:27 09:58:10 Visit [facility] [id number] cassius [facility] [id number] Dwayne as Jorge?Blea [phone] [place] anselmo [address] Office [facility] 2020-11-26 2020-11-26 Outpatient RICHARD DYEKS [facility] [id number] Univers 08:00:00 08:00:00 RICHARD PENNINGTON [id number] [facility] 2020-11-26 2020-11-26 Outpatient RICHARD DYKES [facility] [id number] Univers 08:00:00 08:00:00 RICHARD PENNINGTON [facility] 2020-11-20 2020-11-20 Outpatient RICHARD DYKES [facility] [id number] Univers 08:00:00 08:00:00 RICHARD PENNINGTON [id number] [facility] 2020-11-20 2020-11-20 Outpatient RICHARD DYKES [facility] [id number] Univers 08:00:00 08:00:00 RICHARD PENNINGTON [facility] 2020-11-14 2020-11-14 Telephone Aditi [facility] 1.2.840.114 [id number] Univers 00:00:00 00:00:00 Richard Foley [id number] ity [id number] [facility] [phone] [place] dicazalia nal 092 Branch [facility] 2020-11-01 2020-11-01 Office [facility] 1.2.840.114 [id number] Univers 13:43:12 14:35:39 Visit Liliana GREGORY [id number] ity of [facility] [id number] AT [phone] [place] dicazalia BEDOYA 204 Branch [facility] 2020-11-01 2020-11-01 Outpatient R BRAD [facility] [id number] Univers 14:00:00 14:00:00 [facility]IANA [id number] [facility] 2020-11-01 2020-11-01 Outpatient R BRAD [facility] [id number] Univers 14:00:00 14:00:00 LILIANA [facility] 2020-10-22 2020-10-22 Outpatient R BRAD [facility] [id number] Univers 13:00:00 13:00:00 LILIANA [id number] [facility] 2020-10-19 2020-10-19 Outpatient RICHARD DYKES [facility] [id number] Univers 08:40:00 08:40:00 RICHARD PENNINGTON [facility] 2020-10-18 2020-10-18 [facility] 1.2.840.114 [id number] Univers 12:54:28 23:59:00 Encounter Lauryn Foley [id number] ity of [id number] [place] [id number] [facility] 804 Branch 2020-10-18 2020-10-18 Outpatient R DESIREE [facility] [id number] Univers 13:00:00 13:00:00 LAURYN [id number] cassius o kari [facility] 2020-10-18 2020-10-18 Outpatient Bryn RAMÍREZ [facility] [id number] Univers 00:00:00 00:00:00 LAURYN pierce [facility] 2020-10-15 2020-10-15 Telephone [facility] 1.2.840.114 [id number] 00:00:00 00:00:00 Abena N OIL CHANGER [id number] REGIONAL [id number] MATERNAL [id number] & CHILD [address] [place] [address] 2020-10-15 2020-10-15 Telephone [facility] 1.2.840.114 [id number] Univers 00:00:00 00:00:00 Abena N OIL CHANGER [id number] it y of REGIONAL [id number] Dwayne as MATERNAL [phone] [facility] & CHILD [address] [place] [address] 2020-10-12 2020-10-12 [facility] 1.2.840.114 [id number] 00:00:00 00:00:00 Abena N OIL CHANGER [id number] REGIONAL [id number] MATERNAL [id number] & CHILD [address] [place] [address] 2020-10-12 2020-10-12 [facility] 1.2.840.114 [id number] [facility] 00:00:00 00:00:00 Abena N OIL CHANGER [id number] it y of REGIONAL [id number] Dwayne as MATERNAL [phone] [facility] & [address] 2020-10-11 2020-10-11 Outpatient [facility] [id number] Univers 15:15:00 15:15:00 ABENA [id number] cassius [facility] 2020-10-11 2020-10-11 Outpatient Bryn PATEL [facility] [id number] Univers 15:15:00 15:15:00 AEBNA hammonds [facility] 2020-10-11 2020-10-11 [place] [facility] 1.2.840.114 [id number] 00:00:00 00:00:00 Abena N OIL CHANGER [id number] REGIONAL [id number] MATERNAL [id number] & CHILD [address] [place] [address] 2020-10-11 2020-10-11 Telephone [facility] 1.2.840.114 [id number] Univers 00:00:00 00:00:00 Abena Camarillo OIL CHANGER [id number] it y of REGIONAL [id number] Dwayne as MATERNAL [id number] [facility] & CHILD [address] [place] [address] 2020-10-09 2020-10-09 Office [facility] [id number] 15:44:08 16:29:53 Visit Abena Camarillo OIL CHANGER [id number] REGIONAL [id number] MATERNAL [phone] & [address] 2020-10-09 2020-10-09 Office [facility] [id number] [id number] Univers 15:44:08 16:29:53 Visit Abena Camarillo OIL CHANGER [id number] it y of [facility] [id number] Dwayne as MATERNAL [id number] [facility] & CHILD [address] [place] [address] 2020-10-09 2020-10-09 Outpatient [facility] [id number] Univers 15:45:00 15:45:00 ABENA hammonds [facility] 2020-10-09 2020-10-09 Orders Doctor COLT 1.2.840.114 [id number] Univers 00:00:00 00:00:00 Only Unassigned, PARUL [id number] ity of [place] [facility] 4.2.7.2.686 Dwayne as [phone] [facility] 009 Branch 2020-10-08 2020-10-08 Transition Julio Grant 1.2.840.114 [id number] Univers 00:00:00 00:00:00 of Care Mesfin Guerrero [id number] ity of [place].7.2.[place] [id number] [facility] 403 Branch 2020-10-01 2020-10-05 Hospital Mary Rios 1.2.840.114 [id number] Univers 09:39:00 10:22:00 Encounter S Parul [id number] ity of [facility] [id number] Dwayne as [phone] [facility] 098 Branch 2020-10-01 2020-10-01 Outpatient R [facility] [id number] Univers 08:30:00 08:30:00 [id number] ity of [facility] 2020-10-01 2020-10-01 Outpatient R MARY RIOS [facility] [id number] Univers 08:30:00 08:30:00 ity of [facility] 2020-10-01 2020-10-01 Orders Doctor COLT 1.2.840.114 [id number] Univers 00:00:00 00:00:00 Only Unassigned, PARUL [id number] ity of [place] [facility] 4.2.7.2.686 Dwayne as [id number] [facility] 009 [place] 2020-09-30 2020-09-30 Orders Doctor GREGORY 1.2.840.114 [id number] Univers 00:00:00 00:00:00 Only Unassigned, PARUL [id number] ity of [facility] [facility] [id number] Dwayne as [id number] [facility] 009 [place] 2020-09-28 2020-09-28 Outpatient [facility] [id number] Univers 09:30:00 09:30:00 ABENA [id number] ity [facility] 2020-09-28 2020-09-28 Outpatient R JORGE [facility] [id number] Univers 09:30:00 09:30:00 ABENA ity of [facility] 2020-09-27 2020-09-27 Outpatient R [facility] [id number] Univers 11:45:00 11:45:00 [id number] ity [facility] 2020-09-26 2020-09-26 Laboratory Only, Adc Test [facility] 1.2.840. 114 [id number] Univers 12:05:49 12:20:49 Only Mary Rios Lena [id number] ity of [place] [id number] [facility] 353 Branch 2020-09-26 2020-09-26 Outpatient R [facility] [id number] Univers 12:00:00 12:00:00 [id number] ity of [facility] 2020-09-26 2020-09-26 Outpatient R [facility] [id number] Univers 12:00:00 12:00:00 ity of [facility] 2020-09-26 2020-09-26 Orders Doctor GREGORY 1.2.840.114 [id number] Univers 00:00:00 00:00:00 Only Unassigned, PARUL [id number] ity of [facility] 4.2.7.2.686 Dwayne as [id number] [facility] 009 Branch 2020-09-21 2020-09-21 Outpatient R RICHARD PENNINGTON [facility] [id number] Univers 10:00:00 10:00:00 RICHARD PENNINGTON [id number] ity of [facility] 2020-09-21 2020-09-21 Outpatient R RICHARD PENNINGTON [facility] [id number] Univers 10:00:00 10:00:00 RICHARD PENNINGTON ity of [facility] 2020-09-14 2020-09-15 Emergency Glenis, TRAUMA [id number] Univers 21:58:00 00:49:00 Cheo MOORE 350.1.13.10 ity [place] [id number] [facility] 014 Branch 2020-09-12 2020-09-13 Emergency Kwaku, K [facility] 1.2.840.114 [id number] Univers 19:41:00 00:37:00 Yulia Foley 350.1.13.10 i ty of [place] [id number] [facility] 084 Branch 2020-09-12 2020-09-12 Telephone Aditi [facility] 1.2.840.114 [id number] Univers 00:00:00 00:00:00 Richard Foley 350.1.13.10 ity of [place].2.686 [place] Profess[place] [id number] [place] dical [facility] 092 [facility] 2020-09-11 2020-09-11 Emergency [facility] [id number] Univers 20:23:00 22:08:00 Wong Foley 350.1.13.10 i ty of [place] 4.2.7.2.686 [facility] [phone] [address] 2020-08-31 2020-08-31 Emergency Kwaku [facility] 1.2.840.114 [id number] Univers 11:19:00 13:58:00 Yulia Foley 350.1.13.10 i ty of [place] 4.2.7.2.686 [facility] [id number] [address] 2020-08-29 2020-08-29 Emergency Kwaku [facility] 1.2.840.114 [id number] Univers 20:48:00 23:11:00 Yulia Foley 350.1.13.10 i ty of [place] 4.2.7.2.686 [facility] [id number] [address] 2020-06-07 2020-06-07 Office Irma [facility] [id number] Univers 10:50:31 11:18:03 Visit Alma Estevez OIL CHANGER 350.1.13.10 ity [facility] 4.2.7.2.686 Dwayne as MATERNAL [id number] Med ical & CHILD 107 [facility] 2020-06-07 2020-06-07 Outpatient Bryn SOLIS [facility] [id number] Univers 11:00:00 11:00:00 ALMA [id number] cassius pierce [facility] 2020-06-07 2020-06-07 Outpatient Bryn SOLIS [facility] [id number] Univers 11:00:00 11:00:00 ALMA braxton [facility] 2020-05-29 2020-05-29 Patient Alfred [facility] 1.2.840.114 [id number] Univers 00:00:00 00:00:00 Outreach Santosh AN 350.1.13.10 i ty of [facility] 4.2.7.2.686 [place] [id number] [place] dical [address] 2020-05-13 2020-05-13 Emergency ePace Paz [facility] 1.2.840.114 [id number] Univers 19:12:00 21:45:00 Yulia Annton 350.1.13.10 i ty of [place] 4.2.7.2.686 [place] [phone] [facility] 084 Branch 2020-05-13 2020-05-13 Orders Doctor COLT 1.2.840.114 [id number] Univers 00:00:00 00:00:00 Only Unassigned, PARUL 350.1.13.10 ity of [place] [facility] 4.2.7.2.686 Dwayne as [id number] [facility] 009 Branch 2020-03-22 2020-03-22 Outpatient [facility] [id number] Univers 13:30:00 13:30:00 [id number] ity of [facility] 2020-01-19 2020-01-19 Telephone Visit, [facility] [id number] [id number] Univers 00:00:00 00:00:00 [facility] 350.1.13.10 ity of Nurse [facility] 4.2.7.2.686 Dwayne as MATERNAL [id number] [facility] & CHILD [address] [place] [address] 2020-01-17 2020-01-17 Office [facility] 1.2.840.114 [id number] Univers 13:39:45 14:25:08 Visit Trever Clemente OIL CHANGER 350.1.13.10 ity of [facility] 4.2.7.2.686 Dwayne as MATERNAL [phone] [facility] & CHILD [address] [place] [address] 2020-01-17 2020-01-17 Outpatient [facility] [id number] -[id number] Univers 13:45:00 13:45:00 TREVER ity o f [facility] 2020-01-17 2020-01-17 Outpatient Bryn [facility] [id number] Univers 13:45:00 13:45:00 EDWARDNDA ity o f [facility] 2020-01-16 2020-01-16 Telephone Gianna [facility] [id number] Univers 00:00:00 00:00:00 Rosshawnnda R OIL CHANGER 350.1.13.10 ity of [facility] 4.2.7.2.686 Dwayne as MATERNAL [phone] [facility] ical & CHILD [address] [place] [address] 2019-12-30 2019-12-30 Nurse Visit, Reddy-Rmp Nurse [facility] 1.2 .840.114 [id number] Univers 10:22:21 10:37:21 Visit Abena Patel OIL CHANGER 350.1.13.10 ity of [place] 4.2.7.2.686 [place] as MATERNAL [phone] [facility] & [address] 2019-12-30 2019-12-30 Outpatient R [facility] [id number] -[id number] Univers 10:30:00 10:30:00 [id number] ity of [facility] 2019-12-30 2019-12-30 Outpatient R [facility] [id number] Univers 10:30:00 10:30:00 ity of [facility] 2019-12-21 2019-12-21 [facility] [id number] Univers 00:00:00 00:00:00 Brittanicookiea R OIL CHANGER 350.1.13.10 ity of [facility] 4.2.7.2.686 Dwayne as MATERNAL [phone] [facility] & CHILD [address] [place] [address] 2019-12-20 2019-12-20 Office Gianna [facility] 1.2.840.114 [id number] Univers 13:03:11 13:55:34 Visit Brittanimary R OIL CHANGER 350.1.13.10 ity of [facility] 4.2.7.2.686 Dwayne as MATERNAL [phone] [facility] [address] [place] [address] 2019-12-20 2019-12-20 Outpatient R [facility] [id number] -[id number] Univers 12:45:00 12:45:00 TREVER [id number] ity o f [facility] 2019-12-20 2019-12-20 Outpatient R [facility] [id number] Univers 12:45:00 12:45:00 TREVER ity o f [facility] 2019-11-07 2019-11-07 Outpatient R [facility] [id number] -[id number] Univers 14:00:00 14:00:00 [id number] [facility] 2019-10-24 2019-10-24 Telephone [facility] 1.2.840.114 [id number] Univers 00:00:00 00:00:00 Abena Camarillo OIL CHANGER 350.1.13.10 it y of [place] 4.2.7.2.686 Dwayne as MATERNAL [phone] [facility] [address] [place] [address] 2019-10-17 2019-10-17 Outpatient R [facility] [id number] -[id number] Univers 15:00:00 15:00:00 [facility] 2019-10-17 2019-10-17 Outpatient R [facility] [id number] Univers 15:00:00 15:00:00 [facility] 2019-09-28 2019-09-28 Telephone [facility] 1.2.840.114 [id number] Univers 00:00:00 00:00:00 Abena Cmaarillo OIL CHANGER 350.1.13.10 it y of [place] 4.2.7.2.686 Dwayne as MATERNAL [id number] [address] 2019-09-27 2019-09-27 Office [facility] [id number] Univers 14:03:06 14:59:44 Visit Abena Camarillo OIL CHANGER 350.1.13.10 it y of [facility] 4.2.7.2.686 Dwayne as MATERNAL [id number] [facility] & [address] 2019-09-27 2019-09-27 Outpatient [facility] [id number] [id number] Univers 14:00:00 14:00:00 ABENA [id number] [facility] 2019-09-27 2019-09-27 Outpatient R [facility] [id number] Univers 14:00:00 14:00:00 ABENA [facility] 2019-08-26 2019-08-26 Medical Office Receptionist Assistant Lab, [facility] 1.2.840. 114 [id number] Univers 12:52:43 13:06:01 Visit Alma Solis OIL CHANGER 350.1.13. 10 ity [facility] 4.2.7.2.686 Dwayne as MATERNAL [phone] Med ical & CHILD [address] [place] [address] 2019-08-26 2019-08-26 Outpatient R [facility] [id number] -[id number] Univers 13:00:00 13:00:00 [id number] ity [facility] 2019-08-26 2019-08-26 Outpatient [facility] [id number] Univers 13:00:00 13:00:00 ALMA hammonds o f [facility] 2019-08-19 2019-08-19 Outpatient R [facility] [id number] -[id number] Univers 13:00:00 13:00:00 [id number] ity [facility] 2019-08-19 2019-08-19 Outpatient R [facility] [id number] Univers 13:00:00 13:00:00 ity of [facility] 2019-08-18 2019-08-18 Outpatient R [facility] [id number] -20 Univers 13:00:00 13:00:00 [id number] ity [facility] 2019-08-18 2019-08-18 Outpatient R [facility] [id number] Univers 13:00:00 13:00:00 ity [facility] 2019-08-18 2019-08-18 Emergency [facility] [id number] Univers 08:24:15 11:52:00 RAVEN [facility] 2019-08-18 2019-08-18 Emergency [facility] 1.2.488.044 [id number] Univers 08:24:15 11:52:00 Raven Foley 350.1.13.10 i ty of [place] 4.2.7.2.686 [facility] [phone] [address] 2019-08-18 2019-08-18 Orders Doctor COLT 1.2.840.114 [id number] Univers 00:00:00 00:00:00 Only Unassigned, PARUL 350.1.13.10 ity of [facility] 4.2.7.2.686 Dwayne as [phone] [facility] [address] [place] 2019-07-31 2019-07-31 Telephone COLT Miramontes 1.2.227.149 [id number] Univers 00:00:00 00:00:00 Gabbierosa CAT 350.1.13.10 i ty of [facility] 4.2.7.2.686 Dwayne as [id number] [facility] [address] [place] 2019-07-28 2019-07-29 Emergency [facility] [id number] Univers 18:06:33 00:02:00 SHINTA [facility] 2019-07-28 2019-07-29 Emergency [facility] 1.2.840.114 [id number] Univers 18:06:33 00:02:00 [facility] Lena 350.1.13.10 i [place] [phone] [facility] [address] [place] 2019-07-18 2019-07-[address] [facility] 1.2.840.114 [id number] Univers 12:55:14 14:20:25 ne Visit Alma Estevez OIL CHANGER 350.1.13.10 ity [place] [id number] Dwayne as MATERNAL [phone] Med ical & CHILD [address] [place] [address] 2019-07-18 2019-07-18 Outpatient R [facility] [id number] [id number] Univers 14:00:00 14:00:00 ALMA [id number] ity o f [facility] 2019-07-18 2019-07-18 Outpatient R AKINSIPE, [facility] [id number] Univers 14:00:00 14:00:00 ALMA ity o f [facility] 2019-06-27 2019-06-27 Outpatient R [facility] [id number] -[id number] Univers 15:30:00 15:30:00 [id number] 2019-06-27 Outpatient R [facility] [id number] Univers 15:30:00 15:30:00 [facility] 2019-06-26 2019-06-26 Emergency X CIARA [facility] ERT [id number] Univers 19:06:29 21:03:00 LORY ity [facility] 2019-06-26 2019-06-26 Emergency Pimentel, [facility] 1.2.840.114 [id number] Univers 19:06:29 21:03:00 Lory Uriostegui [facility] 350.1.13.10 [place] [id number] [address] ([facility]) 2019-06-26 2019-06-26 Telephone [facility] 1.2.840.114 [id number] Univers 00:00:00 00:00:00 Alma C OIL CHANGER 350.1.13.10 ity of [place] 4.2.7.2.686 Dwayne as MATERNAL [id number] Med ical & CHILD [address] [place] [address] 2019-06-24 2019-06-24 Outpatient R [facility] [id number] -[id number] Univers 09:30:00 09:30:00 [id number] ity [facility] 2019-06-24 2019-06-24 Outpatient R [facility] [id number] Univers 09:30:00 09:30:00 ity [facility] 2019-06-23 2019-06-23 [facility] 1.2.840.114 [id number] Univers 12:57:38 15:49:57 ne Visit Alma Estevez OIL CHANGER 350.1.13.10 ity of [place] 4.2.7.2.686 Dwayne as MATERNAL [phone] [facility] & [address] 2019-06-23 2019-06-23 Outpatient IRMA, [facility] [id number] [id number] Univers 15:30:00 15:30:00 ALMA [id number] ity o f [facility] 2019-06-23 2019-06-23 Outpatient [facility] [id number] Univers 15:30:00 15:30:00 ALMA hammonds o f [facility] 2019-06-22 2019-06-22 Outpatient [facility] [id number] Univers 13:30:00 13:30:00 ABENA ityolie [facility] 2019-06-22 2019-06-22 Outpatient [facility] [id number] -20 Univers 09:00:00 09:00:00 [id number] ity of [facility] 2019-06-22 2019-06-22 Telephone Visit, [facility] 1.2.055.742 [id number] Univers 00:00:00 00:00:00 [facility] OIL CHANGER 350.1.13.10 ity of Nurse REGIONAL 4.2.7.2.686 Dwayne as MATERNAL [id number] Med ical & CHILD [address] [place] [address] 2019-06-22 2019-06-22 Refill Doctor [facility] 1.2.840.114 [id number] Univers 00:00:00 00:00:00 Unassigned, OIL CHANGER 350.1.13.10 ity of [place]IONAL 4.2.7.2.686 Dwayne as MATERNAL [phone] [facility] ical & CHILD [address] [place] [address] 2019-06-21 2019-06-21 Medical Office 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 114 [id number] Univers 13:00:32 13:15:32 Visit Alma Solis OIL CHANGER 350.1.13. 10 ity of [facility] 4.2.7.2.686 Dwayne as MATERNAL [id number] [facility] & CHILD [address] [place] [address] 2019-06-21 2019-06-21 Outpatient [facility] [id number] -[id number] Univers 10:30:00 10:30:00 [id number] ity of [facility] 2019-06-21 2019-06-21 Outpatient [facility] [id number] Univers 10:30:00 10:30:00 ALMA hammonds o f [facility] 2019-06-21 2019-06-21 [facility] 1.2.840.114 [id number] Univers 00:00:00 00:00:00 Abena Camarillo OIL CHANGER 350.1.13.10 it y of [facility] 4.2.7.2.686 Dwayne as MATERNAL [id number] [facility] [address] [place] [address] 2019-06-20 2019-06-20 Telephone [facility] 1.2.840.114 [id number] Univers 00:00:00 00:00:00 Abena N OIL CHANGER 350.1.13.10 it y of [place] 4.2.7.2.686 Dwayne as MATERNAL [id number] Med ical & CHILD [address] [place] [address] 2019-06-10 2019-06-10 Telephone [facility] 1.2.840.114 [id number] Univers 00:00:00 00:00:00 Abena N OIL CHANGER 350.1.13.10 it y of [place] 4.2.7.2.686 Dwayne as MATERNAL [id number] Med ical & CHILD [address] [place] [address] 2019-05-20 2019-05-20 Telephone [facility] 1.2.840.114 [id number] Univers 00:00:00 00:00:00 Abena N OIL CHANGER 350.1.13.10 it y of [place] 4.2.7.2.686 Dwayne as MATERNAL [id number] Med ical & CHILD [address] [place] [address] 2019-05-19 2019-05-19 Telephone [facility] 1.2.840.114 [id number] Univers 00:00:00 00:00:00 Abena N OIL CHANGER 350.1.13.10 it y of [place] 4.2.7.2.686 Dwayne as MATERNAL [id number] Med ical & CHILD [address] [place] [address] 2019-05-17 2019-05-17 Office [facility] 1.2.725.827 [id number] Univers 13:24:09 13:50:08 Visit Abena N OIL CHANGER 350.1.13.10 it y of [place] 4.2.7.2.686 Dwayne as MATERNAL [id number] Med ical & CHILD [address] [place] [address] 2019-05-17 2019-05-17 Outpatient Bryn PATEL [facility] [id number] [id number] Univers 13:30:00 13:30:00 ABENA hammonds [facility] 2019-05-17 2019-05-17 Outpatient Bryn PATEL [facility] [id number] Univers 13:30:00 13:30:00 ABENA hammonds [facility] 2019-05-06 2019-05-06 Outpatient Bryn KATZ [facility] [id number] -[id number] Univers 08:15:00 08:15:00 TREVER [id number] ity o f [facility] 2019-05-06 2019-05-06 Outpatient R GIANNA [facility] [id number] Univers 08:15:00 08:15:00 TREVER ity o f [facility] 2019-04-20 2019-04-20 Emergency Peace Paz [facility] 1.2.840.114 [id number] Univers 11:02:10 14:18:00 [facility] 350.1.13.10 i ty of [place] [id number] [address] 2019-03-29 2019-03-29 Telephone Gianna [facility] 1.2.504.283 [id number] Univers 00:00:00 00:00:00 Trever R OIL CHANGER 350.1.13.10 ity of [place] 4.2.7.2.686 Dwayne as MATERNAL [id number] [facility] ical & CHILD [address] [place] [address] 2019-03-22 2019-03-22 Telephone Gianna [facility] [id number] [id number] Univers 00:00:00 00:00:00 Nimaa R OIL CHANGER 350.1.13.10 ity of [facility] 4.2.7.2.686 Dwayne as MATERNAL [id number] [address] 2019-03-21 2019-03-21 Office Gianna [facility] 1.2.840.114 [id number] Univers 15:39:38 16:25:05 Visit Trever R OIL CHANGER 350.1.13.10 ity of [place] 4.2.7.2.686 Dwayne as MATERNAL [id number] [facility] & [address] Results Test Description Test Test Results Result Source Time Comments Comments MR BRAIN W WO 2020-10- Normal MRI of the Uni versity of CONTRAST 12 brain.. NeuroQuant [facility] 21:16:55 Hippocampal Asymmetry Bra [facility] Report demonstrates Normal Scan: Does notsupport the presence of hippocampal asymmetry or volume loss. Preliminary Report Dictated by Resident: Gopal Springer MD., have reviewed this study and agree with the abovereport.MR BRAIN W WO CONTRAST COMPARISON: MR brain 11/24/2017. HISTORY: seizures TECHNIQUE: Seizure protocol MRI of the brain was performed prior to andafter intravenous contrast administration. Quantitative volumetry of the brain was performed using NeuroQuant([employer], [place], [place]) software package. The NeuroQuantanalysis was based on a sagittal 3D volumetric MPRAGE pulse sequence.Sequence-check ing was performed to ensure appropriate high-resolution andcontrast image parameters. Correction for field/gradient inhomogeneities,removal of the overlying calvaria, alignment to the probabilistic atlas ofstereotypical anatomy and segmented volumetry of predetermined anatomicareas derived from multiple subjects of multiple age groups was performed.Two automated reports were generated. Contrast: 20 mL of Prohance intravenous. FINDINGS: The ventricles and cerebral sulci are normal in caliber and configuration.No midline shift, hydrocephalus or pathological extra-axial fluidcollection is present. The basal cisterns are unremarkable. No restricted diffusion is present to suggest acute infarct. No abnormalparenchymal signal abnormality is present. No abnormal gradient blooming.No abnormal intracranial enhancement. The T2 flow voids for the major intracranial vessels are unremarkable. Noabnormal fluid signal is present in the mastoid air cells or paranasal airsinuses. The Hippocampal volume report demonstrates: Left Hippocampal volume: 3.84 cc, normative percentile of 29th.Right Hippocampal volume: 3.64 cc, normative percentile of 7th.Asymmetry Index: 5.5, normative percentile of 93rd. The asymmetry index isdefined as the percentage difference between left and right volumes dividedby their mean. The values listed above were within 2 SD of the mean. [facility], Radiant Results Inft User - 10/18/2020 4:18 PM CDT MR BRAIN W WO CONTRASTCOMPARISON: MR brain 11/24/2017.HISTORY: seizures TECHNIQUE: Seizure protocol MRI of the brain was performed prior to andafter intravenous contrast administration. Quantitative volumetry of the brain was performed using NeuroQuant([employer], [place], [place]) software package. The NeuroQuantanalysis was based on a sagittal 3D volumetric MPRAGE pulse sequence.Sequence-check ing was performed to ensure appropriate high-resolution andcontrast image parameters. Correction for field/gradient inhomogeneities,removal of the overlying calvaria, alignment to the probabilistic atlas ofstereotypical anatomy and segmented volumetry of predetermined anatomicareas derived from multiple subjects of multiple age groups was performed.Two automated reports were generated. Contrast: 20 mL of Prohance intravenous. FINDINGS:The ventricles and cerebral sulci are normal in caliber and configuration.No midline shift, hydrocephalus or pathological extra-axial fluidcollection is present. The basal cisterns are unremarkable.No restricted diffusion is present to suggest acute infarct. No abnormalparenchymal signal abnormality is present. No abnormal gradient blooming.No abnormal intracranial enhancement.The T2 flow voids for the major intracranial vessels are unremarkable. Noabnormal fluid signal is present in the mastoid air cells or paranasal airsinuses.The Hippocampal volume report demonstrates:Left Hippocampal volume: 3.84 cc, normative percentile of 29th.Right Hippocampal volume: 3.64 cc, normative percentile of 7th.Asymmetry Index: 5.5, normative percentile of 93rd. The asymmetry index isdefined as the percentage difference between left and right volumes dividedby their mean.The values listed above were within 2 SD of the mean. IMPRESSIONNormal MRI of the brain..NeuroQuant Hippocampal Asymmetry Report demonstrates Normal Scan: Does notsupport the presence of hippocampal asymmetry or volume loss. Preliminary Report Dictated by Resident: Gopal Rubin MD., have reviewed this study and agree with the abovereport. LITHIUM 2020-10-05 10:56:47 Test Item Value Reference Range Interpretation Comme nts [place]ott (test code = 6952392953) 0.8 mmol/L 0.6-1.2 MARCELLE (test code = MARCELLE) Toxic Range: ? Greater than 1.2 mmol/L Lab Interpretation (test code = 06045-8) [id number] 18:22:00 Test Item Value Reference Range Interpretation Comments LITHIUM LEVEL (BEAKER) 0.8 mmol/L 0.8-1.2 (test code = 630) SCAN RESULT (test code = See Scanned Report [id number]) [place], [id number] 14:13:01Reason for exam:->abnormal imaging [facility] CENTERName: VALORIE ROTHMAN : 1995 Sex: FFluoroscopic unit utilized for a procedure performed in the OR. No interpretation was requested. Refer to the operative report for findings. Refer to PACS for patient radiation dose information.COMPREHENSIVE METABOLIC [id number] 06:43:00 Test Item Value Reference Range Interpretation [...] S NOT APPLICABLE FOR DIALYSIS PATIEN TS. Car Cleaner ID - MADISON MCBC (HEMOGRAM ONLY)2020-09-24 06:04:00 Test Item Value Reference [...] (BEAKER) (test code = 413) COMPREHENSIVE METABOLIC [id number] 07:06:00 Test Item Value Reference Range Interpretation [...] S NOT APPLICABLE FOR DIALYSIS PATIEN TS. Car Cleaner ID - PIAYA LCBC (HEMOGRAM ONLY)2020-09-23 06:47:00 [...] (BEAKER) (test code = 413) COMPREHENSIVE METABOLIC [id number] 08:27:00 Test Item Value Reference Range Interpretation [...] S NOT APPLICABLE FOR DIALYSIS PATIEN TS. Car Cleaner ID - [place]ISON [id number] 08:27:00 Test Item Value Reference Range Interpretation Comments MAGNESIUM (BEAKER) (test code = 2.4 mg/dL 1.6-2.6 627) Car Cleaner ID - MADISON MPROTHROMBIN TIME/[id number] 07:59:00 Test Item Value Reference Range Interpretation Comments PROTIME (BEAKER) 13.0 seconds 11.9-14.2 (test code = 759) INR (BEAKER) (test 1.00 See_Comment [Automat ed message] code = 370) The system [employer] generated this result transmitted ref erence range: <=5.90. The reference range was not used to int erpret this result as normal/abnormal . RECOMMENDED COUMADIN/WARFARIN INR THERAPY RANGESSTANDARD DOSE: 2.0 - 3.0 Includes: PROPHYLAXIS forvenous thrombosis, systemic embolization; TREATMENT for venous thrombosis and/or pulmonary embolus.HIGH RISK: Target INR is 2.5-3.5 for patients with mechanical heart valves.CBC W/PLT COUNT & AUTO DIFFERENTIAL 2020-09-22 07:49:00 Test Item Value Reference Range [...] H PERCENT (BEAKER) (test code = 2801) DRUG SCREEN PANEL 2 [id number] 05:19:56 Test Item Value Reference Range Interpretation Comments AMPHET (test code = Negative Negative 1886159008) VALERIE U (test code = Negative Negative 5333467207) BENZO U (test code = Negative Negative 8335115694) Cocaine Metabolite (test Negative Negative code = 1850688582) METHADONE (test code = Negative Negative 8945636365) OPIATES (test code = Negative Negative 9399600780) PCP (test code = Negative Negative 7070030479) THC (test code = Negative Negative 9483290154) MARCELLE (test code = MARCELLE) Urine Drug Cutoff Ranges Cocaine: ? 150 ng/mLBenzodiazepines: ? ? 200 ng/mLMethadone: ? 300 ng/mLAmphetamine: ? 1,000 ng/mLOpiates: ? 300 ng/mLCannabinoids: ?50 ng/mLPhencyclidine: ? ? ? 25 ng/mLBarbiturates: ?200 ng/mL The results are to be used only for medical (i.e., treatment) purposes. Unconfirmed screening results must not be used for non-medical purposes (e.g., employment testing, legal testing). Lab Interpretation (test Normal code = 53911-4) [facility] WITH [id number] 04:55:16 Test Item Value Reference Range Interpretation Comments WBC (test code = See_Comment H [Automated 6690-2) message] The sy stem which generated this result transmitted reference range : 4.30 - 11.10 10*3/?L. The reference range was not used to interpret this result as normal/abnormal . RBC (test code = See_Comment L [Automated 789-8) message] The sy stem which generated this result transmitted reference range : 3.93 - 5.25 10*6/?L. The reference range was not used to interpret this result as normal/abnormal . HGB (test code = 9.2 g/dL 11.6-15.0 L 718-7) HCT (test code = 28.7 % 35.7-45.2 L 4544-3) MCV (test code = 90.3 fL 80.6-95.5 787-2) MCH (test code = 28.9 pg 25.9-32.8 785-6) MCHC (test code = 32.1 g/dL 31.6-35.1 786-4) RDW-SD (test code = 41.8 fL 39.0-49.9 35042-8) RDW-CV (test code = 12.7 % 12.0-15.5 788-0) PLT (test code = See_Comment [Automated 777-3) message] The sy stem which generated this result transmitted reference range : 166 - 358 10*3/ ?L. The reference r david was not used to interpret this result as normal/abnormal . MPV (test code = 9.3 fL 9.5-12.9 L 63756-4) NRBC/100 WBC (test See_Comment [Automat ed code = 9812839774) message] The system which generated this result transmitted reference range : 0.0 - 10.0 /100 WBCs. The refer ence range was not u sed to interpret th is result as normal/abnormal . NRBC x10^3 (test code <0.01 See_Comment [Auto mated = 6419697467) message] The s ystem which generated this result transmitted reference range : 10*3/?L. The reference range was not used to interpret this result as normal/abnormal . GRAN MAT (NEUT) % 54.5 % (test code = 770-8) IMM GRAN % (test code 1.10 % = 7656702849) LYMPH % (test code = 36.2 % 736-9) MONO % (test code = 6.8 % 5905-5) EOS % (test code = 1.2 % 713-8) BASO % (test code = 0.2 % 706-2) GRAN MAT x10^3(ANC) 6.13 10*3/uL 1.88-7.09 (test code = 3323062186) IMM GRAN x10^3 (test 0.12 10*3/uL 0.00-0.06 H code = 8110895879) LYMPH x10^3 (test code 4.07 10*3/uL 1.32-3.29 H = 731-0) MONO x10^3 (test code 0.76 10*3/uL 0.33-0.92 = 742-7) EOS x10^3 (test code = 0.14 10*3/uL 0.03-0.39 711-2) BASO x10^3 (test code <0.03 0.01-0.07 = 704-7) Lab Interpretation Abnormal (test code = 74625-7) [id number] 04:50:00 Test Item Value Reference Range Interpretation Comments POCT PREG (test code = 1605) negative POCT PREG LOT # (test code = 3575) [id number] POCT PREG TEST DATE (test 03-08-2022 code = 3576) Lab Interpretation (test code = Normal 03453-5) [id number] 04:44:46 Test Item Value Reference Range Interpretation Comments APPEARANCE (test code = Clear Clear 4089893984) COLOR (test code = Straw Yellow A 4792736027) PH (test code = 4.8-8.0 0824361562) SP GRAVITY (test code = 1.003-1.030 0455257578) GLU U QUAL (test code = Normal Normal 4518146817) BLOOD (test code = Negative Negative 9328762401) KETONES (test code = Negative Negative 9800533205) PROTEIN (test code = Negative Negative 2887-8) UROBILIN (test code = Normal Normal 7886785714) BILIRUBIN (test code = Negative Negative 5161968599) NITRITE (test code = Negative Negative 6875620806) LEUK WILBERT (test code = Negative Negative 7608031983) RBC/HPF (test code = See_Comment [Autom ated message] 0278163489) The system [employer] generated this result transmitted ref erence range: 0 - 3 HP F. The reference range was not used to int erpret this result as normal/abnormal . WBC/HPF (test code = See_Comment [Autom ated message] 3905230793) The system [employer] generated this result transmitted ref erence range: 0 - 5 HP F. The reference range was not used to int erpret this result as normal/abnormal . BACTERIA (test code = Negative Negative 0758685309) SQ EPITH (test code = See_Comment H [Auto mated message] 0162839387) The system [employer] generated this result transmitted ref erence range: <=2 HPF. The reference range was not used to int erpret this result as normal/abnormal . Lab Interpretation (test Abnormal code = 43335-8) [facility]17 Test Item Value Reference Range Interpretation Comments ALCOHOL (test code = <10 mg/dL 2487747546) MARCELLE (test code = Toxic Greater than or MARCELLE) equal to 80 mg/dL. NOTE: Whole blood values are approximately 10% to 15% lower than serum and plasma. [facility] [id number] 04:38:12 Test Item Value Reference Range Interpretation Comments CK (test code = 3777464653) <20 33-194 L Lab Interpretation (test code = Abnormal 83110-4) [facility]OLIC PANEL ([id number])2020-09-15 04:38:07 Test Item Value Reference Range Interpretation Comments NA (test code = 141 mmol/L 135-145 6592593832) K (test code = 3.7 mmol/L 3.5-5.0 1402159437) CL (test code = 108 mmol/L 98-108 7325620710) CO2 TOTAL (test code = 25 mmol/L 23-31 1736427862) AGAP (test code = 2-16 0643680819) BUN (test code = 9 mg/dL 7-23 8330027668) GLUCOSE (test code = 89 mg/dL 70-110 4267661075) CREATININE (test code = 0.54 mg/dL 0.50-1.04 6494861207) TOTAL BILI (test code = <0.1 0.1-1.1 L 9377460532) CALCIUM (test code = 9.0 mg/dL 8.6-10.6 6392928072) T PROTEIN (test code = 5.8 g/dL 6.3-8.2 L 6465791984) ALBUMIN (test code = 3.4 g/dL 3.5-5.0 L 4562034239) ALK PHOS (test code = 71 U/L 34-122 9568325867) ALTv (test code = 13 U/L 5-35 2-6) AST(SGOT) (test code = 18 U/L 13-40 7214715234) eGFR (test code = mL/min/1.73m2 5071011535) MARCELLE (test code = MARCELLE) Association of Glomerular Filtration Rate (GFR) and Staging of Kidney Disease* + --+ --+ ------+| GFR (mL/min/1.73 m2) ?| With Kidney Damage ?| ?Without Kidney Damage+ --------+ --------+ +| ?>90 ?| ?Stage one ?| ? Normal ?+ ---+ ---+ -------+| ?60-89 ?| ?Stage two ?| ? Decreased GFR ? + --+ --+ ------+| ?30-59 ?| ?Stage three ?| ? Stage three ? + --+ --+ ------+| ?15-29 ?| ?Stage four ? | ? Stage four ?+ ---+ ---+ -------+| ?<15 (or dialysis) ? ?| ?Stage five ? | ? Stage five ?+ ---+ ---+ -------+ *Each stage assumes the associated GFR level has been in effect for at least three months. ?Stages 1 to 5, with or without kidney disease, indicate chronic kidney disease. Notes: Determination of stages one and two (with eGFR >59mL/min/1.73 m2) requires estimation of kidney damage for at least three months as defined by structural or functional abnormalities of the kidney, manifested by either:Pathological abnormalities or Markers of kidney damage (including abnormalities in the composition of the blood or urine or abnormalities in imaging tests). Lab Interpretation Abnormal (test code = 93085-4) [facility]inalysis[facility] 17:30:33 Test Item Value Reference Range Interpretation Comments APPEARANCE (test code = Hazy Clear A 6490798683) COLOR (test code = Straw Yellow A 1199103976) PH (test code = 4.8-8.0 8779749511) SP GRAVITY (test code = 1.003-1.030 2472370798) GLU U QUAL (test code = Normal Normal 1637519712) BLOOD (test code = Negative Negative 1690101900) KETONES (test code = Negative Negative 1637717547) PROTEIN (test code = Negative Negative 2887-8) UROBILIN (test code = Normal Normal 3371028643) BILIRUBIN (test code = Negative Negative 3888089337) NITRITE (test code = Negative Negative 4493613851) LEUK WILBERT (test code = 500/uL Negative A 5042804790) RBC/HPF (test code = See_Comment [Autom ated message] 6365132318) The system [employer] generated this result transmitted ref erence range: 0 - 3 HP F. The reference range was not used to int erpret this result as normal/abnormal . WBC/HPF (test code = See_Comment H [Autom ated message] 4839753863) The system [employer] generated this result transmitted ref erence range: 0 - 5 HP F. The reference range was not used to int erpret this result as normal/abnormal . BACTERIA (test code = Few Negative A 0629386842) SQ EPITH (test code = HPF 5579572588) WBC CLUMPS (test code = See_Comment H [Au tomated message] 7392262747) The system [employer] generated this result transmitted ref erence range: <=1 HPF. The reference range was not used to int erpret this result as normal/abnormal . Lab Interpretation (test Abnormal code = 97411-8) [facility] [id number] 17:08:00 Test Item Value Reference Range Interpretation Comments POCT PREG (test code = 1605) negative On board controls acceptable with present C Line (test code = 3574) POCT PREG LOT # (test code = 3570) [id number] POCT PREG TEST DATE (test code = 3576) Lab Interpretation (test code = Normal 70151-5) [facility]. Metabolic Panel (14379)2020-08-31 16:55:49 Test Item Value Reference Range Interpretation Comments NA (test code = 141 mmol/L 135-145 2077191483) K (test code = 3.9 mmol/L 3.5-5.0 0162829606) CL (test code = 106 mmol/L 98-108 8656161358) CO2 TOTAL (test code = 27 mmol/L 23-31 6992166546) AGAP (test code = 2-16 4758697396) BUN (test code = 5 mg/dL 7-23 L 6293028657) GLUCOSE (test code = 91 mg/dL 70-110 6116299595) CREATININE (test code = 0.68 mg/dL 0.50-1.04 2981112992) TOTAL BILI (test code = 0.2 mg/dL 0.1-1.5 0715909686) CALCIUM (test code = 10.0 mg/dL 8.6-10.6 5744692531) T PROTEIN (test code = 7.2 g/dL 6.3-8.2 0144925069) ALBUMIN (test code = 4.3 g/dL 3.5-5.0 2542213064) ALK PHOS (test code = 75 U/L 34-122 5536249521) ALTv (test code = 14 U/L 5-35 1742-6) AST(SGOT) (test code = 30 U/L 13-40 9650699284) eGFR (test code = mL/min/1.73m2 2090375634) MARCELLE (test code = MARCELLE) Association of Glomerular Filtration Rate (GFR) and Staging of Kidney Disease* + --+ --+ ------+| GFR (mL/min/1.73 m2) ?| With Kidney Damage ?| ?Without Kidney Damage+ --------+ --------+ +| ?>90 ?| ?Stage one ?| ? Normal ?+ ---+ ---+ -------+| ?60-89 ?| ?Stage two ?| ? Decreased GFR ? + --+ --+ ------+| ?30-59 ?| ?Stage three ?| ? Stage three ? + --+ --+ ------+| ?15-29 ?| ?Stage four ? | ? Stage four ?+ ---+ ---+ -------+| ?<15 (or dialysis) ? ?| ?Stage five ? | ? Stage five ?+ ---+ ---+ -------+ *Each stage assumes the associated GFR level has been in effect for at least three months. ?Stages 1 to 5, with or without kidney disease, indicate chronic kidney disease. Notes: Determination of stages one and two (with eGFR >59mL/min/1.73 m2) requires estimation of kidney damage for at least three months as defined by structural or functional abnormalities of the kidney, manifested by either:Pathological abnormalities or Markers of kidney damage (including abnormalities in the composition of the blood or urine or abnormalities in imaging tests). Lab Interpretation Abnormal (test code = 70733-4) [facility] with [id number] 16:51:47 Test Item Value Reference Range Interpretation Comments WBC (test code = See_Comment [Automated 5377-2) message] The sy stem which generated this result transmitted reference range : 4.30 - 11.10 10*3/?L. The reference range was not used to interpret this result as normal/abnormal . RBC (test code = See_Comment [Automated 773-8) message] The sy stem which generated this result transmitted reference range : 3.93 - 5.25 10*6/?L. The reference range was not used to interpret this result as normal/abnormal . HGB (test code = 12.9 g/dL 11.6-15.0 718-7) HCT (test code = 40.9 % 35.7-45.2 4544-3) MCV (test code = 90.3 fL 80.6-95.5 787-2) MCH (test code = 28.5 pg 25.9-32.8 785-6) MCHC (test code = 31.5 g/dL 31.6-35.1 L 786-4) RDW-SD (test code = 43.1 fL 39.0-49.9 71172-8) RDW-CV (test code = 13.1 % 12.0-15.5 788-0) PLT (test code = See_Comment [Automated 777-3) message] The sy stem which generated this result transmitted reference range : 166 - 358 10*3/ ?L. The reference r david was not used to interpret this result as normal/abnormal . MPV (test code = 10.3 fL 9.5-12.9 57691-6) NRBC/100 WBC (test See_Comment [Automat ed code = 1979830599) message] The system which generated this result transmitted reference range : 0.0 - 10.0 /100 WBCs. The refer ence range was not u sed to interpret th is result as normal/abnormal . NRBC x10^3 (test code <0.01 See_Comment [Auto mated = 9798819347) message] The s ystem which generated this result transmitted reference range : 10*3/?L. The reference range was not used to interpret this result as normal/abnormal . GRAN MAT (NEUT) % 70.5 % (test code = 770-8) IMM GRAN % (test code 0.70 % = 2585654856) LYMPH % (test code = 19.0 % 736-9) MONO % (test code = 8.8 % 5905-5) EOS % (test code = 0.7 % 713-8) BASO % (test code = 0.3 % 706-2) GRAN MAT x10^3(ANC) 4.96 10*3/uL 1.88-7.09 (test code = 6329593278) IMM GRAN x10^3 (test 0.05 10*3/uL 0.00-0.06 code = 0334286558) LYMPH x10^3 (test code 1.34 10*3/uL 1.32-3.29 = 731-0) MONO x10^3 (test code 0.62 10*3/uL 0.33-0.92 = 742-7) EOS x10^3 (test code = 0.05 10*3/uL 0.03-0.39 711-2) BASO x10^3 (test code <0.03 0.01-0.07 = 704-7) Lab Interpretation Abnormal (test code = 76439-2) [facility] Tyler[facility] Acid Whole [id number] 16:37:28 Test Item Value Reference Range Interpretation Comments LACTIC ACID (test code = 1.74 mmol/L 0.50-2.20 7560416290) Lab Interpretation (test code = Normal 64275-7) [facility]2021[facility]-24 03:04:28 Test Item Value Reference Range Interpretation Comments APPEARANCE (test code = Clear Clear 9975377260) COLOR (test code = Colorless Yellow A 9114810598) PH (test code = 4.8-8.0 4947438635) SP GRAVITY (test code = 1.003-1.030 6134933590) GLU U QUAL (test code = Normal Normal 6339997830) BLOOD (test code = 2+ Negative A 8818518140) KETONES (test code = Negative Negative 1271258954) PROTEIN (test code = Negative Negative 2887-8) UROBILIN (test code = Normal Normal 5214362866) BILIRUBIN (test code = Negative Negative 3509669600) NITRITE (test code = Negative Negative 0147668151) LEUK WILBERT (test code = Negative Negative 6455899193) RBC/HPF (test code = See_Comment [Autom ated message] 9267451394) The system [employer] generated this result transmit con reference range : 0 - 3 HPF. The refe rence range was not u sed to interpret th is result as normal/abnormal . WBC/HPF (test code = <1 See_Comment [Autom ated message] 5923010662) The system [employer] generated this result transmit con reference range : 0 - 5 HPF. The refe rence range was not u sed to interpret th is result as normal/abnormal . BACTERIA (test code = Few Negative A 9666114033) SQ EPITH (test code = HPF 1535537554) Lab Interpretation (test Abnormal code = 02623-5) [facility] [id number] 02:44:00 Test Item Value Reference Range Interpretation Comments POCT PREG (test code = 1605) negative On board controls acceptable with present C Line (test code = 3574) POCT PREG LOT # (test code = 3575) [id number] POCT PREG TEST DATE (test 2022-03-08 code = 3576) Lab Interpretation (test code = Normal 21510-5) [facility]OVID[facility] (ID NOW RAPID TESTING)2020-08-30 02:29:07 Test Item Value Reference Range Interpretation Comments SARS-CoV-2 Rapid ID NOW Positive Not Detected A (test code = 65727-3) MARCELLE (test code = MARCELLE) ID NOW COVID-19 Assay is an isothermal nucleic acid amplification test intended for the qualitative detection of nucleic acid from SARS-CoV-2 viral RNA in nasopharyngeal ([employer]) specimens. It is used under Emergency Use Authorization (EUA) by FDA. The limit of detection (LOD) of the assay is 125 Genome Equivalents/mL. A positive result is indicative of the presence of SARS-CoV-2 RNA. ?Clinical correlation with patient history and other diagnostic information is necessary to determine patient infection status. A negative (Not Detected) result does not preclude SARS-CoV-2 infection. In patients with clinical symptoms and other tests that are consistent with SARS-CoV-2 infection, negative results should be treated as presumptive negative and a new specimen should be tested with alternative PCR molecular test. Invalid: Please collect a new specimen for repeat patient testing if clinically indicated. Lab Interpretation Abnormal (test code = 23077-4) [facility] URINALYSIS W/O SPECIFIC [id number] 16:04:00 Test Item Value Reference Range Interpretation Comments POCT PH U (test code = 3254) 8 mg/dl 5-8 POCT U LEUK EST (test code = Trace Negative - Negative 3263) POCT U NIT (test code = 3262) Neg Negative - Negative POCT U PROT (test code = 3259) Trace Negative - Negative POCT U GLU (test code = 3256) Neg Negative - Negative POCT U KETONE (test code = 3258) None Negative - Negative POCT U BLD (test code = 3257) Trace Negative - [facility] [id number] 16:04:00 Test Item Value Reference Range Interpretation Comments POCT PH U (test code = 3254) 8 mg/dl 5-8 POCT U LEUK EST (test code = Trace Negative - Negative 3263) POCT U NIT (test code = 3262) Neg Negative - Negative POCT U PROT (test code = 3259) Trace Negative - Negative POCT U GLU (test code = 3256) Neg Negative - Negative POCT U KETONE (test code = 3258) None Negative - Negative POCT U BLD (test code = 3257) Trace Negative - Negative [facility] W/O SPECIFIC [id number] 16:04:00 Test Item Value Reference Range Interpretation Comments POCT PH U (test code = 3254) 8 mg/dl 5-8 POCT U LEUK EST (test code = Trace Negative - Negative 3263) POCT U NIT (test code = 3262) Neg Negative - Negative POCT U PROT (test code = 3259) Trace Negative - Negative POCT U GLU (test code = 3256) Neg Negative - Negative POCT U KETONE (test code = 3258) None Negative - Negative POCT U BLD (test code = 3257) Trace Negative - Negative [facility]21[facility]-08 02:02:48 Test Item Value Reference Range Interpretation Comments APPEARANCE (test code = Cloudy Clear A 5733255892) COLOR (test code = Yellow Yellow 6913961760) PH (test code = 4.8-8.0 1773701245) SP GRAVITY (test code = 1.003-1.030 9168714789) GLU U QUAL (test code = Normal Normal 9981973808) BLOOD (test code = 2+ Negative A 6457332558) KETONES (test code = Negative Negative 3055446125) PROTEIN (test code = 100 mg/dL Negative A 2887-8) UROBILIN (test code = Normal Normal 4647663851) BILIRUBIN (test code = Negative Negative 2573105682) NITRITE (test code = Negative Negative 8155845660) LEUK WILBERT (test code = 500/uL Negative A 2025658247) RBC/HPF (test code = See_Comment H [Autom ated message] 7321892790) The system [employer] generated this result transmit con reference range : 0 - 3 HPF. The refe rence range was not u sed to interpret th is result as normal/abnormal . WBC/HPF (test code = >182 See_Comment H [Autom ated message] 2188778613) The system [employer] generated this result transmit con reference range : 0 - 5 HPF. The refe rence range was not u sed to interpret th is result as normal/abnormal . BACTERIA (test code = Few Negative A 5175913969) MUCOUS (test code = Slight Negative LPF A 0832808530) SQ EPITH (test code = HPF 2292688964) WBC CLUMPS (test code = See_Comment H [Au tomated message] 9573318127) The system [employer] generated this result transmit con reference range : <=1 HPF. The refere nce range was not u sed to interpret th is result as normal/abnormal . Lab Interpretation (test Abnormal code = 50166-9) [facility] Metabolic [id number] 02:00:26 Test Item Value Reference Range Interpretation Comments NA (test code = 139 mmol/L 135-145 2939540584) K (test code = 4.1 mmol/L 3.5-5.0 9328058546) CL (test code = 99 mmol/L 98-108 5523890370) CO2 TOTAL (test code = 32 mmol/L 23-31 H 5106191085) AGAP (test code = 2-16 6992074126) BUN (test code = 4 mg/dL 7-23 L 2231394337) GLUCOSE (test code = 102 mg/dL 70-110 8259800740) CREATININE (test code = 0.63 mg/dL 0.50-1.04 5148229345) TOTAL BILI (test code = 0.8 mg/dL 0.1-1.6 7233689213) CALCIUM (test code = 10.2 mg/dL 8.6-10.6 0033517484) T PROTEIN (test code = 8.3 g/dL 6.3-8.2 H 3338743123) ALBUMIN (test code = 5.3 g/dL 3.5-5.0 H 6180143467) ALK PHOS (test code = 80 U/L 34-122 2056685778) ALTv (test code = 13 U/L 5-35 1742-6) AST(SGOT) (test code = 24 U/L 13-40 9223111769) eGFR Calculation mL/min/1.73m2 (Non-) (test code = 1636444113) eGFR Calculation mL/min/1.73m2 () (test code = 9218406703) MARCELLE (test code = MARCELLE) Association of Glomerular Filtration Rate (GFR) and Staging of Kidney Disease* + --+ --+ ------+| GFR (mL/min/1.73 m2) ?| With Kidney Damage ?| ?Without Kidney Damage+ --------+ --------+ +| ?>90 ?| ?Stage one ?| ? Normal ?+ ---+ ---+ -------+| ?60-89 ?| ?Stage two ?| ? Decreased GFR ? + --+ --+ ------+| ?30-59 ?| ?Stage three ?| ? Stage three ? + --+ --+ ------+| ?15-29 ?| ?Stage four ? | ? Stage four ?+ ---+ ---+ -------+| ?<15 (or dialysis) ? ?| ?Stage five ? | ? Stage five ?+ ---+ ---+ -------+ *Each stage assumes the associated GFR level has been in effect for at least three months. ?Stages 1 to 5, with or without kidney disease, indicate chronic kidney disease. Notes: Determination of stages one and two (with eGFR >59mL/min/1.73 m2) requires estimation of kidney damage for at least three months as defined by structural or functional abnormalities of the kidney, manifested by either:Pathological abnormalities or Markers of kidney damage (including abnormalities in the composition of the blood or urine or abnormalities in imaging tests). Lab Interpretation Abnormal (test code = 46913-1) [facility] with [id number] 01:59:51 Test Item Value Reference Range Interpretation Comments WBC (test code = See_Comment H [Automated 0499-2) message] The system which generated this result transmit con reference range : 4.30 - 11.10 10*3/?L. The reference range was not used to interpret this result as normal/abnormal . RBC (test code = See_Comment [Automated 516-2) message] The system which generated this result transmit con reference range : 3.93 - 5.25 10*6/?L. The reference range was not used to interpret this result as normal/abnormal . HGB (test code = 14.9 g/dL 11.6-15.0 718-7) HCT (test code = 46.3 % 35.7-45.2 H 4544-3) MCV (test code = 89.6 fL 80.6-95.5 787-2) MCH (test code = 28.8 pg 25.9-32.8 785-6) MCHC (test code = 32.2 g/dL 31.6-35.1 786-4) RDW-SD (test code = 40.9 fL 39.0-49.9 82390-8) RDW-CV (test code = 12.4 % 12.0-15.5 788-0) PLT (test code = See_Comment [Automated 777-3) message] The system which generated this result transmit con reference range : 166 - 358 10*3/ ?L. The reference range was not u sed to interpret th is result as normal/abnormal . MPV (test code = 10.1 fL 9.5-12.9 57450-0) NRBC/100 WBC (test See_Comment [Automat ed code = 1528388141) message] The system which generated this result transmit con reference range : 0.0 - 10.0 /100 WBCs. The reference range was not used to interpret this result as normal/abnormal . NRBC x10^3 (test code <0.01 See_Comment [Auto mated = 4587024399) message] The system which generated this result transmit con reference range : 10*3/?L. The reference range was not used to interpret this result as normal/abnormal . GRAN MAT (NEUT) % 78.8 % (test code = 770-8) IMM GRAN % (test code 1.00 % = 9506087822) LYMPH % (test code = 12.8 % 736-9) MONO % (test code = 6.5 % 5905-5) EOS % (test code = 0.5 % 713-8) BASO % (test code = 0.4 % 706-2) GRAN MAT x10^3(ANC) 15.38 10*3/uL 1.88-7.09 H (test code = 5976159781) IMM GRAN x10^3 (test 0.19 10*3/uL 0.00-0.06 H code = 4085307856) LYMPH x10^3 (test code 2.49 10*3/uL 1.32-3.29 = 731-0) MONO x10^3 (test code 1.26 10*3/uL 0.33-0.92 H = 742-7) EOS x10^3 (test code = 0.09 10*3/uL 0.03-0.39 711-2) BASO x10^3 (test code 0.07 10*3/uL 0.01-0.07 = 704-7) Lab Interpretation Abnormal (test code = 27054-1) [facility] [id number] 01:08:00 Test Item Value Reference Range Interpretation Comments POCT PREG (test code = 1605) negative On board controls acceptable with positive C Line (test code = 3574) POCT PREG LOT # (test code = 3575) [id number] POCT PREG TEST DATE (test 12/06/2021 code = 3576) Lab Interpretation (test code = Normal 89298-0) [facility] URINALYSIS W/O SPECIFIC [id number] 19:59:00 Test Item Value Reference Range Interpretation Comments POCT PH U (test code = 3254) 6 mg/dl 5-8 POCT U LEUK EST (test code = 2+ Negative - Negative 3263) POCT U NIT (test code = 3262) negative Negative - Negative POCT U PROT (test code = 3259) trace Negative - Negative POCT U GLU (test code = 3256) negative Negative - Negative POCT U KETONE (test code = 3258) negative Negative - Negative POCT U BLD (test code = 3257) negative Negative - Negative [facility] URINALYSIS W/O SPECIFIC [id number] 19:59:00 Test Item Value Reference Range Interpretation Comments POCT PH U (test code = 3254) 6 mg/dl 5-8 POCT U LEUK EST (test code = 2+ Negative - Negative 3263) POCT U NIT (test code = 3262) negative Negative - Negative POCT U PROT (test code = 3259) trace Negative - Negative POCT U GLU (test code = 3256) negative Negative - Negative POCT U KETONE (test code = 3258) negative Negative - Negative POCT U BLD (test code = 3257) negative Negative - Negative [facility] [id number] 19:41:00 Test Item Value Reference Range Interpretation Comments POCT PREG (test code = 1605) Negative On board controls acceptable with C Yes Line (test code = 3574) POCT PREG LOT # (test code = 3575) POCT PREG TEST DATE (test code = 3576) [facility] [id number] 19:41:00 Test Item Value Reference Range Interpretation Comments POCT PREG (test code = 1605) Negative On board controls acceptable with C Yes Line (test code = 3574) POCT PREG LOT # (test code = 3575) POCT PREG TEST DATE (test code = 3576) [facility] CHEST 1 [id number] 15:44:00HISTORY: Cough. TECHNIQUE: Portable AP erect view of the chest is obtained. Comparison madewith 07/28/2019 study. FINDINGS: No acute pneumonia. No pneumothorax or pleural effusion orpulmonary congestiondetected. Cardiac size is within normal limits. Smallcalcified granulomas are suspected in left middle and lower lung zones. CONCLUSIONS: No signs of acute cardiopulmonary disease.[facility] [place] ResultsInft User - 08/18/2019 10:45 AM CDTHISTORY: Cough.TECHNIQUE: Portable AP erect view of the chest is obtained. Comparison madewith 07/28/2019 study.FINDINGS: No acute pneumonia. No pneumothorax or pleural effusion orpulmonary congestion detected. Cardiac size is within normal limits. Smallcalcified granulomas are suspected in left middle and lower lung zones.CONCLUSIONS: No signs of acute cardiopulmonary disease.[facility] WITH [id number] 15:25:00 Test Item Value Reference Range Interpretation Comments WBC (test code = See_Comment H [Automated 6549-2) message] The sy stem which generated this result transmitted reference range : 4.30 - 11.10 10*3/?L. The reference range was not used to interpret this result as normal/abnormal . RBC (test code = See_Comment [Automated 939-8) message] The sy stem which generated this result transmitted reference range : 3.93 - 5.25 10*6/?L. The reference range was not used to interpret this result as normal/abnormal . HGB (test code = 14.5 g/dL 11.6-15 718-7) HCT (test code = 44.2 % 35.7-45.2 4544-3) MCV (test code = 87.7 fL 80.6-95.5 787-2) MCH (test code = 28.8 pg 25.9-32.8 785-6) MCHC (test code = 32.8 g/dL 31.6-35.1 786-4) RDW-SD (test code = 42.2 fL 39-49.9 63432-6) RDW-CV (test code = 13.1 % 12-15.5 788-0) PLT (test code = See_Comment H [Automated 777-3) message] The sy stem which generated this result transmitted reference range : 166 - 358 10*3/ ?L. The reference r david was not used to interpret this result as normal/abnormal . MPV (test code = 10.3 fL 9.5-12.9 51515-4) NRBC/100 WBC (test See_Comment [Automat ed code = 3594622742) message] The system which generated this result transmitted reference range : 0.0 - 10.0 /100 WBCs. The refer ence range was not u sed to interpret th is result as normal/abnormal . NRBC x10^3 (test code <0.01 See_Comment [Auto mated = 3974297078) message] The s ystem which generated this result transmitted reference range : 10*3/?L. The reference range was not used to interpret this result as normal/abnormal . GRAN MAT (NEUT) % 57.0 % (test code = 770-8) IMM GRAN % (test code 0.90 % = 8578292514) LYMPH % (test code = 31.7 % 736-9) MONO % (test code = 8.1 % 5905-5) EOS % (test code = 1.8 % 713-8) BASO % (test code = 0.5 % 706-2) GRAN MAT x10^3(ANC) 7.49 10*3/uL 1.88-7.09 H (test code = 0571022150) IMM GRAN x10^3 (test 0.12 10*3/uL 0-0.06 H code = 2308203416) LYMPH x10^3 (test code 4.16 10*3/uL 1.32-3.29 H = 731-0) MONO x10^3 (test code 1.07 10*3/uL 0.33-0.92 H = 742-7) EOS x10^3 (test code = 0.23 10*3/uL 0.03-0.39 711-2) BASO x10^3 (test code 0.06 10*3/uL 0.01-0.07 = 704-7) Lab Interpretation Abnormal (test code = 93047-9) [facility], [id number] 14:52:00 Test Item Value Reference Range Interpretation Comments PREG SERUM (test code Negative = 5667853668) MARCELLE (test code = MARCELLE) Less than 10 IU/L. ?If low titer or ectopic is suspected, resubmit specimen in 48-72 hours. [facility] Metabolic Panel (NA, K, CL, CO2, GLUCOSE, BUN, CREATININE, CA)2019-08-18 14:48:00 Test Item Value Reference Range Interpretation Comments NA (test code = 141 mmol/L 135-145 7151494305) K (test code = 3.9 mmol/L 3.5-5 7419494602) CL (test code = 111 mmol/L 98-108 H 3087039995) CO2 TOTAL (test code = 21 mmol/L 23-31 L 3266239442) AGAP (test code = 2-16 0867267783) BUN (test code = 14 mg/dL 7-23 6942840355) GLUCOSE (test code = 92 mg/dL 70-110 5932539430) CREATININE (test code = 0.80 mg/dL 0.5-1.04 6046544490) CALCIUM (test code = 9.3 mg/dL 8.6-10.6 8103192506) eGFR Calculation mL/min/1.73m2 (Non-) (test code = 9610835325) eGFR Calculation mL/min/1.73m2 () (test code = 3421463072) MARCELLE (test code = MARCELLE) Association of Glomerular Filtration Rate (GFR) and Staging of Kidney Disease* + --+ --+ ------+| GFR (mL/min/1.73 m2) ?| With Kidney Damage ?| ?Without Kidney Damage+ --------+ --------+ +| ?>90 ?| ?Stage one ?| ? Normal ?+ ---+ ---+ -------+| ?60-89 ?| ?Stage two ?| ? Decreased GFR ? + --+ --+ ------+| ?30-59 ?| ?Stage three ?| ? Stage three ? + --+ --+ ------+| ?15-29 ?| ?Stage four ? | ? Stage four ?+ ---+ ---+ -------+| ?<15 (or dialysis) ? ?| ?Stage five ? | ? Stage five ?+ ---+ ---+ -------+ *Each stage assumes the associated GFR level has been in effect for at least three months. ?Stages 1 to 5, with or without kidney disease, indicate chronic kidney disease. Notes: Determination of stages one and two (with eGFR >59mL/min/1.73 m2) requires estimation of kidney damage for at least three months as defined by structural or functional abnormalities of the kidney, manifested by either:Pathological abnormalities or Markers of kidney damage (including abnormalities in the composition of the blood or urine or abnormalities in imaging tests). Lab Interpretation Abnormal (test code = 73424-5) [facility] (ALB, T.PRO, BILI T, BU/BC, ALT, AST, ALK PHOS)2019-08-18 14:48:00 Test Item Value Reference Range Interpretation Comments TOTAL BILI (test code = 3954652739) 0.4 mg/dL 0.1-1.1 BILI UNCON (test code = 0303670602) 0.4 mg/dL 0.1-1.1 BILI CONJ (test code = 7138199758) 0.0 mg/dL 0-0.3 T PROTEIN (test code = 5681371510) 8.1 g/dL 6.3-8.2 ALBUMIN (test code = 7567167590) 4.7 g/dL 3.5-5 ALK PHOS (test code = 0941089748) 74 U/L 34-122 ALTv (test code = 1742-6) 17 U/L 5-35 AST(SGOT) (test code = 9028242956) 27 U/L 13-40 Lab Interpretation (test code = Normal 15567-6) [facility]2020-[facility]-11 14:46:00 Test Item Value Reference Range Interpretation Comments APTT Patient (test See_Comment H [Automat ed code = 3173-2) message] The system which generated this result transmitted reference range : 23 - 38 Seconds . The reference range was not used to interpr et this result as normal/abnormal . MARCELLE (test code = MARCELLE) The [facility] patient population mean normal value for aPTT is 30 seconds. Lab Interpretation Abnormal (test code = 25973-6) [facility] [id number] 14:46:00 Test Item Value Reference Range Interpretation Comments Streptococcus pyogenes (group A) Negative Negative antigen (test code = 72679-9) Lab Interpretation (test code = Normal 90197-9) [facility] TylerProthrombin Time (PT) / [id number] 14:43:00 Test Item Value Reference Range Interpretation Comments PROTIME PATIENT (test See_Comment [Auto mated message] code = 5964-2) The system wh ich generated this result transmitted ref erence range: 12.0 - 1 4.7 Seconds. The re ference range was not u sed to interpret this result as normal/abnor mal. INR (test code = 6301-6) Nor mal INR <1.1; Warfarin Therap eutic range 2.0 to 3. 0 or 2.5 to 3.5, dep ending upon the indica tions. Lab Interpretation (test Normal code = 64540-6) [facility]OVID[facility] (ID NOW RAPID TESTING)2019-08-18 14:43:00 Test Item Value Reference Range Interpretation Comments SARS-CoV-2 Rapid ID NOW Not Detected Not Detected (test code = 38304-5) MARCELLE (test code = MARCELLE) ID NOW COVID-19 Assay is an isothermal nucleic acid amplification test intended for the qualitative detection of nucleic acid from SARS-CoV-2 viral RNA in nasopharyngeal ([employer]) specimens. It is used under Emergency Use Authorization (EUA) by FDA. The limit of detection (LOD) of the assay is 125 Genome Equivalents/mL. A positive result is indicative of the presence of SARS-CoV-2 RNA. ?Clinical correlation with patient history and other diagnostic information is necessary to determine patient infection status. A negative (Not Detected) result does not preclude SARS-CoV-2 infection. In patients with clinical symptoms and other tests that are consistent with SARS-CoV-2 infection, negative results should be treated as presumptive negative and a new specimen should be tested with alternative PCR molecular test. Invalid: Please collect a new specimen for repeat patient testing if clinically indicated. Lab Interpretation Normal (test code = 95389-0) [facility]. METABOLIC PANEL (44302)2019-07-29 03:00:00 Test Item Value Reference Range Interpretation Comments NA (test code = 141 mmol/L 135-145 9792774589) K (test code = 3.8 mmol/L 3.5-5 9807359544) CL (test code = 105 mmol/L 98-108 7066111433) CO2 TOTAL (test code = 27 mmol/L 23-31 2232873241) AGAP (test code = 2-16 5516733672) BUN (test code = 11 mg/dL 7-23 2621828397) GLUCOSE (test code = 91 mg/dL 70-110 3766709602) CREATININE (test code 0.58 mg/dL 0.5-1.04 = 7590996854) TOTAL BILI (test code 0.4 mg/dL 0.1-1.1 = 8278537350) CALCIUM (test code = 9.9 mg/dL 8.6-10.6 7549615295) T PROTEIN (test code = 7.3 g/dL 6.3-8.2 2521626492) ALBUMIN (test code = 4.5 g/dL 3.5-5 9501002863) ALK PHOS (test code = 53 U/L 34-122 7462699300) ALTv (test code = 12 U/L 5-35 1742-6) AST(SGOT) (test code = 27 U/L 13-40 5983976333) eGFR Calculation mL/min/1.73m2 (Non-) (test code = 8252547943) eGFR Calculation mL/min/1.73m2 () (test code = 7698602150) MARCELLE (test code = MARCELLE) Association of Glomerular Filtration Rate (GFR) and Staging of Kidney Disease* + -+ + ---+| GFR (mL/min/1.73 m2) ?| With Kidney Damage ?| ?Without Kidney Damage+ -------+ ------+ ---------+| ?>90 ?| ?Stage one ?| ? Normal ?+ --+ -+ ----+| ?60-89 ?| ?Stage two ?| ? Decreased GFR ? + -+ + ---+| ?30-59 ?| ?Stage three ?| ? Stage three ? + -+ + ---+| ?15-29 ?| ?Stage four ? | ? Stage four ?+ --+ -+ ----+| ?<15 (or dialysis) ? ?| ?Stage five ? | ? Stage five ?+ --+ -+ ----+ *Each stage assumes the associated GFR level has been in effect for at least three months. ?Stages 1 to 5, with or without kidney disease, indicate chronic kidney disease. Notes: Determination of stages one and two (with eGFR >59mL/min/1.73 m2) requires estimation of kidney damage for at least three months as defined by structural or functional abnormalities of the kidney, manifested by either:Pathological abnormalities or Markers of kidney damage (including abnormalities in the composition of the blood or urine or abnormalities in imaging tests). [facility] TylerDESTINI [id number] 02:43:00 Test Item Value Reference Range Interpretation Comments TROPONIN I (test <0.012 See_Comment [Automated code = 9188479142) message] The system which generated this result transmitted reference range : <=0.034 ng/mL. The reference range was not used to interpr et this result as normal/abnormal . MARCELLE (test code = Equal or Less than MARCELLE) 0.034 ng/ml---Normal ?Note: Cardiac troponin begins to rise 3-4 hours after the onset of ischemia. Repeat in 4-6 hours if the sample was drawn within 3-4 hours of the onset of the symptom and found normal. Between 0.035 and 0.120 ng/mL--- Borderline. Questionable myocardial injury or necrosis ? ?Note: Serial measurement may be necessary to confirm or exclude the diagnosis of myocardial injury or necrosis; Clinical correlation (symptoms, EKGs, imaging studies, and others) required; Repeat in 4-6 hours if clinically indicated. ? Equal or Higher than 0.121 ng/mL---Abnormal. Myocardial Injury or Necrosis Likely ? Biotin has been reported to cause a negative bias, interpret results relative to patient's use of biotin. ? Lab Interpretation Normal (test code = 38933-4) [facility] TylerD-[id number] 02:32:00 Test Item Value Reference Interpretation Comments Range D-DIMER (test code = See_Comment H [Autom ated 8711594575) message] The system which generated this result transmitted reference range : <0.41 ?g/mL (FEU). The reference range was not used to interpret this result as normal/abnormal . MARCELLE (test code = This test may be MARCELLE) used in conjunction with a clinical pretest probability (PTP) assessment model to exclude venous thromboembolism (VTE) in patients suspected of deep venous thrombosis (DVT) and pulmonary embolism (PE) A D-Dimer value less than 0.50 ?g/ml (FEU) has a negative predicative value of 96 to 100% (95% CI)and 97 to 100% (95% CI) as an aid in the diagnosis of deep vein thrombosis (DVT) and pulmonary embolism when there is low or moderate pretest probability of PE or DVT. D-Dimer values are expressed in initial fibrinogen equivalent units (FEU)" The assay results should be used with other information, including the clinical context, in forming a diagnosis. Lab Interpretation Abnormal (test code = 82363-9) [facility] TylerCBC WITH [id number] 02:21:00 Test Item Value Reference Range Interpretation Comments WBC (test code = See_Comment H [Automated 9290-2) message] The sy stem which generated this result transmitted reference range : 4.30 - 11.10 10*3/?L. The reference range was not used to interpret this result as normal/abnormal . RBC (test code = See_Comment [Automated 9-8) message] The sy stem which generated this result transmitted reference range : 3.93 - 5.25 10*6/?L. The reference range was not used to interpret this result as normal/abnormal . HGB (test code = 13.2 g/dL 11.6-15 718-7) HCT (test code = 40.4 % 35.7-45.2 4544-3) MCV (test code = 87.6 fL 80.6-95.5 787-2) MCH (test code = 28.6 pg 25.9-32.8 785-6) MCHC (test code = 32.7 g/dL 31.6-35.1 786-4) RDW-SD (test code = 40.0 fL 39-49.9 98293-8) RDW-CV (test code = 12.5 % 12-15.5 788-0) PLT (test code = See_Comment [Automated 777-3) message] The sy stem which generated this result transmitted reference range : 166 - 358 10*3/ ?L. The reference r david was not used to interpret this result as normal/abnormal . MPV (test code = 10.4 fL 9.5-12.9 49317-6) NRBC/100 WBC (test See_Comment [Automat ed code = 7283901082) message] The system which generated this result transmitted reference range : 0.0 - 10.0 /100 WBCs. The refer ence range was not u sed to interpret th is result as normal/abnormal . NRBC x10^3 (test code <0.01 See_Comment [Auto mated = 5980476808) message] The s ystem which generated this result transmitted reference range : 10*3/?L. The reference range was not used to interpret this result as normal/abnormal . GRAN MAT (NEUT) % 58.3 % (test code = 770-8) IMM GRAN % (test code 0.80 % = 6779400484) LYMPH % (test code = 32.1 % 736-9) MONO % (test code = 6.7 % 5905-5) EOS % (test code = 1.7 % 713-8) BASO % (test code = 0.4 % 706-2) GRAN MAT x10^3(ANC) 6.48 10*3/uL 1.88-7.09 (test code = 8132332088) IMM GRAN x10^3 (test 0.09 10*3/uL 0-0.06 H code = 0869861204) LYMPH x10^3 (test code 3.57 10*3/uL 1.32-3.29 H = 731-0) MONO x10^3 (test code 0.75 10*3/uL 0.33-0.92 = 742-7) EOS x10^3 (test code = 0.19 10*3/uL 0.03-0.39 711-2) BASO x10^3 (test code 0.04 10*3/uL 0.01-0.07 = 704-7) Lab Interpretation Abnormal (test code = 49608-4) [facility] TylerXR CHEST 2 [id number] 02:02:09 No acute cardiopulmonary process. Preliminary Report Dictated by Resident: Carlos Guzman MD., have reviewed this study and agree with the abovereport.EXAM: XR CHEST 2 VW CLINICAL INDICATION: cough and SOB COMPARISON: 09/21/2017 TECHNIQUE: Frontal and lateral views of the chest wereobtained. FINDINGS: No focal consolidation, pleural effusion, or pneumothorax. The cardiac silhouette is normal in size. No acute osseous abnormality. [facility], Radiant Results Inft User - 07/28/2019 9:03 PM CDTEXAM: XR CHEST 2 VWCLINICAL INDICATION: cough and SOB COMPARISON: 09/21/2017TECHNIQUE: Frontal and lateral views of the chest were obtained.FINDINGS:No focal consolidation, pleural effusion, orpneumothorax. The cardiac silhouette is normal in size. No acute osseous abnormality. IMPRESSIONNo acute cardiopulmonary process. Preliminary Report Dictated by Resident: Carlos Mendiola MD., have reviewed this study and agree with the abovereport.[facility] COVID-19 (ID NOW RAPID TESTING)2019-07-28 23:48:00 Test Item Value Reference Range Interpretation Comments SARS-CoV-2 Rapid ID NOW Not Detected Not Detected (test code = 02454-5) MARCELLE (test code = MARCELLE) ID NOW COVID-19 Assay is an isothermal nucleic acid amplification test intended for the qualitative detection of nucleic acid from SARS-CoV-2 viral RNA in nasopharyngeal ([employer]) specimens. It is used under Emergency Use Authorization (EUA) by FDA. The limit of detection (LOD) of the assay is 125 Genome Equivalents/mL. A positive result is indicative of the presence of SARS-CoV-2 RNA. ?Clinical correlation with patient history and other diagnostic information is necessary to determine patient infection status. A negative (Not Detected) result does not preclude SARS-CoV-2 infection. In patients with clinical symptoms and other tests that are consistent with SARS-CoV-2 infection, negative results should be treated as presumptive negative and a new specimen should be tested with alternative PCR molecular test. Invalid: Please collect a new specimen for repeat patient testing if clinically indicated. Lab Interpretation Normal (test code = 89256-2) [facility] TylerPOCT [id number] 23:19:00 Test Item Value Reference Range Interpretation Comments POCT PREG (test code = 1605) Negative On board controls acceptable with Present C Line (test code = 3574) POCT PREG LOT # (test code = 3575) [id number] POCT PREG TEST DATE (test 10/06/2020 code = 3576) Lab Interpretation (test code = Normal 74212-9) [facility] ABDOMEN PELVIS WO [id number] 01:14:52 No acute intra-abdominal process. EXAM: CT ABDOMEN PELVIS WO CONTRAST HISTORY: Flank pain, suspected nephrolithiasis. COMPARISON: None available. TECHNIQUE AND FINDINGS: Contiguous axial imaging from the level of the lungbases through the pubic symphysis was performed without the intravenousadministration of contrast. Coronal and sagittal reconstructions wereobtained. ?Auto mA and/or iterative reconstruction were used to reduceradiation dose. FINDINGS: LOWER THORAX: The lungs bases are clear. No cardiomegaly. LIVER: No focal hepatic lesions. ?Normal liver contour. GALLBLADDER AND BILIARY TREE: No biliary ductal dilation. ?No gallbladderwall thickening. SPLEEN: No splenomegaly. PANCREAS: No ductaldilation or masses. ADRENAL GLANDS: No adrenal nodules. KIDNEYS: No hydronephrosis, stones, or masses. GI TRACT: No dilation or wall thickening. PERITONEUM AND RETROPERITONEUM: Trace free fluid in the pelvis. No freeintraperitoneal air. LYMPH NODES: No lymphadenopathy. PELVIS/BLADDER: Normal. VESSELS:No abnormality identified. BONES AND SOFT TISSUES: No suspicious lytic or sclerotic bony lesions. [facility], Radiant Results Inft User - 06/26/2019 8:15 PM CDTEXAM: CT ABDOMEN PELVIS WO CONTRASTHISTORY: Flank pain, suspected nephrolithiasis.COMPARISON: None available.TECHNIQUE AND FINDINGS: Contiguous axial imaging from the level of the lungbases through the pubic symphysis was performed without the intravenousadministration of contrast. Coronal and sagittal reconstructions wereobtained. Auto mA and/oriterative reconstruction were used to reduceradiation dose.FINDINGS:LOWER THORAX: The lungs bases are clear. No cardiomegaly.LIVER: No focal hepatic lesions. Normal liver contour.GALLBLADDER AND BILIARY TREE: No biliary ductal dilation. No gallbladderwall thickening.SPLEEN: No splenomegaly.PANCREAS:No ductal dilation or masses.ADRENAL GLANDS: No adrenal nodules.KIDNEYS: No hydronephrosis, stones, or masses.GI TRACT: No dilation or wall thickening.PERITONEUM AND RETROPERITONEUM: Trace free fluid in the pelvis. No freeintraperitoneal air.LYMPH NODES: No lymphadenopathy.PELVIS/BLADDER: Normal.VESSELS: No abnormality identified.BONES AND SOFT TISSUES: No suspicious lytic or sclerotic bony lesions.IMPRESSIONNo acute intra-abdominal process.[facility] (NA, K, CL, CO2, GLUCOSE, BUN, CREATININE, CA)2019-06-27 00:52:00 Test Item Value Reference Range Interpretation Comments NA (test code = 139 mmol/L 135-145 4478244898) K (test code = 4.3 mmol/L 3.5-5 2752421924) CL (test code = 103 mmol/L 98-108 1982744246) CO2 TOTAL (test code = 26 mmol/L 23-31 0616956742) AGAP (test code = 2-16 4490378776) BUN (test code = 9 mg/dL 7-23 5672482910) GLUCOSE (test code = 90 mg/dL 70-110 8582638655) CREATININE (test code 0.56 mg/dL 0.5-1.04 = 8521330910) CALCIUM (test code = 9.4 mg/dL 8.6-10.6 6372140132) eGFR Calculation mL/min/1.73m2 (Non-) (test code = 5846477228) eGFR Calculation mL/min/1.73m2 () (test code = 1670224484) MARCELLE (test code = MARCELLE) Association of Glomerular Filtration Rate (GFR) and Staging of Kidney Disease* + -+ + ---+| GFR (mL/min/1.73 m2) ?| With Kidney Damage ?| ?Without Kidney Damage+ -------+ ------+ ---------+| ?>90 ?| ?Stage one ?| ? Normal ?+ --+ -+ ----+| ?60-89 ?| ?Stage two ?| ? Decreased GFR ? + -+ + ---+| ?30-59 ?| ?Stage three ?| ? Stage three ? + -+ + ---+| ?15-29 ?| ?Stage four ? | ? Stage four ?+ --+ -+ ----+| ?<15 (or dialysis) ? ?| ?Stage five ? | ? Stage five ?+ --+ -+ ----+ *Each stage assumes the associated GFR level has been in effect for at least three months. ?Stages 1 to 5, with or without kidney disease, indicate chronic kidney disease. Notes: Determination of stages one and two (with eGFR >59mL/min/1.73 m2) requires estimation of kidney damage for at least three months as defined by structural or functional abnormalities of the kidney, manifested by either:Pathological abnormalities or Markers of kidney damage (including abnormalities in the composition of the blood or urine or abnormalities in imaging tests). [facility] TylerUrinalysis2020-04-20 00:46:00 Test Item Value Reference Range Interpretation Comments APPEARANCE (test code = Hazy Clear A 3996867445) COLOR (test code = Yellow Yellow 5212374878) PH (test code = 4.8-8.0 7242399588) SP GRAVITY (test code = 1.003-1.030 9181549387) GLU U QUAL (test code = Normal Normal 5485993050) BLOOD (test code = Negative Negative Interfere nce from 7797640822) ascorbic acid m ay cause false neg ative results. KETONES (test code = Negative Negative 9124129213) PROTEIN (test code = Negative Negative 2887-8) UROBILIN (test code = Normal Normal 8421079375) BILIRUBIN (test code = Negative Negative 2560403046) NITRITE (test code = Negative Negative 1372059639) LEUK WILBERT (test code = 25/uL Negative A 6368881766) RBC/HPF (test code = See_Comment [Autom ated message] 1784276474) The system [employer] generated this result transmitted ref erence range: 0 - 3 HP F. The reference range was not used to int erpret this result as normal/abnormal . WBC/HPF (test code = See_Comment H [Autom ated message] 7755749773) The system [employer] generated this result transmitted ref erence range: 0 - 5 HP F. The reference range was not used to int erpret this result as normal/abnormal . BACTERIA (test code = Few Negative A 5069893615) MUCOUS (test code = Slight Negative LPF A 0189293368) SQ EPITH (test code = See_Comment H [Auto mated message] 9708722228) The system [employer] generated this result transmitted ref erence range: <=2 HPF. The reference range was not used to int erpret this result as normal/abnormal . ASCORBIC ACID (test 20 mg/dL+ code = 8622559359) Lab Interpretation Abnormal (test code = 21085-8) [facility] WITH [id number] 00:43:00 Test Item Value Reference Range Interpretation Comments WBC (test code = See_Comment [Automated 2590-2) message] The sy stem which generated this result transmitted reference range : 4.30 - 11.10 10*3/?L. The reference range was not used to interpret this result as normal/abnormal . RBC (test code = See_Comment [Automated 589-8) message] The sy stem which generated this result transmitted reference range : 3.93 - 5.25 10*6/?L. The reference range was not used to interpret this result as normal/abnormal . HGB (test code = 13.7 g/dL 11.6-15 718-7) HCT (test code = 41.9 % 35.7-45.2 4544-3) MCV (test code = 87.5 fL 80.6-95.5 787-2) MCH (test code = 28.6 pg 25.9-32.8 785-6) MCHC (test code = 32.7 g/dL 31.6-35.1 786-4) RDW-SD (test code = 38.9 fL 39-49.9 L 62445-9) RDW-CV (test code = 12.1 % 12-15.5 788-0) PLT (test code = See_Comment [Automated 777-3) message] The sy stem which generated this result transmitted reference range : 166 - 358 10*3/ ?L. The reference r david was not used to interpret this result as normal/abnormal . MPV (test code = 10.1 fL 9.5-12.9 09341-9) NRBC/100 WBC (test See_Comment [Automat ed code = 3954155795) message] The system which generated this result transmitted reference range : 0.0 - 10.0 /100 WBCs. The refer ence range was not u sed to interpret th is result as normal/abnormal . NRBC x10^3 (test code <0.01 See_Comment [Auto mated = 2775624321) message] The s ystem which generated this result transmitted reference range : 10*3/?L. The reference range was not used to interpret this result as normal/abnormal . GRAN MAT (NEUT) % 62.9 % (test code = 770-8) IMM GRAN % (test code 0.50 % = 5920952935) LYMPH % (test code = 28.0 % 736-9) MONO % (test code = 7.0 % 5905-5) EOS % (test code = 1.1 % 713-8) BASO % (test code = 0.5 % 706-2) GRAN MAT x10^3(ANC) 5.81 10*3/uL 1.88-7.09 (test code = 9029042358) IMM GRAN x10^3 (test 0.05 10*3/uL 0-0.06 code = 1132230844) LYMPH x10^3 (test code 2.59 10*3/uL 1.32-3.29 = 731-0) MONO x10^3 (test code 0.65 10*3/uL 0.33-0.92 = 742-7) EOS x10^3 (test code = 0.10 10*3/uL 0.03-0.39 711-2) BASO x10^3 (test code 0.05 10*3/uL 0.01-0.07 = 704-7) Lab Interpretation Abnormal (test code = 68770-3) [facility] Test, [id number] 00:37:00 Test Item Value Reference Range Interpretation Comments POCT PREG (test code = 1605) Negative On board controls acceptable with Present C Line (test code = 3574) POCT PREG LOT # (test code = 3575) [id number] POCT PREG TEST DATE (test 11/06/2020 code = 3576) Lab Interpretation (test code = Normal 72882-4) [facility] URINALYSIS W/O SPECIFIC [id number] 18:32:00 Test Item Value Reference Range Interpretation Comments POCT PH U (test code = 3254) 8 mg/dl 5-8 POCT U LEUK EST (test code = 2+ Negative - Negative 3263) POCT U NIT (test code = 3262) negative Negative - Negative POCT U PROT (test code = 3259) 2+ Negative - Negative POCT U GLU (test code = 3256) negative Negative - Negative POCT U KETONE (test code = negative Negative - Negative 3258) POCT U BLD (test code = 3257) about 250 Negative - Negative [facility] URINALYSIS W/O SPECIFIC [id number] 18:32:00 Test Item Value Reference Range Interpretation Comments POCT PH U (test code = 3254) 8 mg/dl 5-8 POCT U LEUK EST (test code = 2+ Negative - Negative 3263) POCT U NIT (test code = 3262) negative Negative - Negative POCT U PROT (test code = 3259) 2+ Negative - Negative POCT U GLU (test code = 3256) negative Negative - Negative POCT U KETONE (test code = negative Negative - Negative 3258) POCT U BLD (test code = 3257) about 250 Negative - Negative [facility] Test Item Value Reference Range Interpretation Comments APPEARANCE (test code = Clear Clear 8665313669) COLOR (test code = Straw Yellow A 7142501236) PH (test code = 4.8-8.0 0714147892) SP GRAVITY (test code = 1.003-1.030 4343169583) GLU U QUAL (test code = Normal Normal 7118143129) BLOOD (test code = Negative Negative 9209733963) KETONES (test code = Negative Negative 3851437710) PROTEIN (test code = Negative Negative 2887-8) UROBILIN (test code = Normal Normal 8688790408) BILIRUBIN (test code = Negative Negative 2137309513) NITRITE (test code = Negative Negative 6996294903) LEUK WILBERT (test code = Negative Negative 6805708271) RBC/HPF (test code = See_Comment [Autom ated message] 1327670947) The system [employer] generated this result transmitted ref erence range: 0 - 3 HP F. The reference range was not used to int erpret this result as normal/abnormal . WBC/HPF (test code = <1 See_Comment [Autom ated message] 0572916910) The system [employer] generated this result transmitted ref erence range: 0 - 5 HP F. The reference range was not used to int erpret this result as normal/abnormal . BACTERIA (test code = Negative Negative 8045907061) SQ EPITH (test code = HPF 5505180688) Lab Interpretation (test Abnormal code = 47068-2) General acute hospital / [facility] - DRUG SCREEN [id number] 19:43:00 Test Item Value Reference Range Interpretation Comments BENZO U (test code = Negative Negative 7588852948) VALERIE U (test code = Negative Negative 7209703385) AMPHET (test code = Negative Negative 1673328307) THC (test code = Negative Negative 4477908282) METHADONE (test code = Negative Negative 8689671740) Meth U (test code = Negative Negative 6567326223) OPIATES (test code = Negative Negative 8914424199) Cocaine Metabolite (test Negative Negative code = 3198877056) PROPOXY (test code = Negative Negative 3507367389) Tric U (test code = Negative Negative 2999780961) PCP (test code = Negative Negative 3842250694) OXYCOD (test code = Negative Negative 8390204880) MARCELLE (test code = MARCELLE) Urine Drug Cutoff Ranges Benzodiazepines: ? ? 150 ng/mLBarbiturates: ?200 ng/mLAmphetamine: ? 500 ng/mLCannabinoids: ?50 ?ng/mLMethadone: ? 200 ng/mLMethamphetamine: ? ? 500 ng/mL Opiates: ? 100 ng/mL or 2000 ng/mLCocaine: ? 150 ng/mLPropoxyphene: ?300 ng/mLTricyclics: ?300 ng/mLOxycodone: ? 100 ng/mLPCP: ? 25 ?ng/mL The results are to be used only for medical (i.e., treatment) purposes. Unconfirmed screening results must not be used for non-medical purposes (e.g., employment testing, legal testing). Lab Interpretation (test Normal code = 62407-6) [facility] [id number] 19:21:00 Test Item Value Reference Range Interpretation Comments POCT PREG (test code = 1605) negative On board controls acceptable with present C Line (test code = 3574) POCT PREG LOT # (test code = [id number]) POCT PREG TEST DATE (test code = 3576) Lab Interpretation (test code = Normal 48495-0) [facility] Metabolic [id number] 18:07:00 Test Item Value Reference Range Interpretation Comments NA (test code = 141 mmol/L 135-145 4362470699) K (test code = 4.3 mmol/L 3.5-5 8453586275) CL (test code = 104 mmol/L 98-108 7676594232) CO2 TOTAL (test code = 25 mmol/L 23-31 9529528014) AGAP (test code = 2-16 7813796039) BUN (test code = 13 mg/dL 7-23 5836380468) GLUCOSE (test code = 95 mg/dL 70-110 8459700904) CREATININE (test code = 0.68 mg/dL 0.5-1.04 6929465228) TOTAL BILI (test code = 0.3 mg/dL 0.1-1.1 4655994517) CALCIUM (test code = 10.2 mg/dL 8.6-10.6 1601420630) T PROTEIN (test code = 7.6 g/dL 6.3-8.2 4588903931) ALBUMIN (test code = 5.1 g/dL 3.5-5 H 7057199278) ALK PHOS (test code = 79 U/L 34-122 1320826668) ALTv (test code = 13 U/L 5-35 1742-6) AST(SGOT) (test code = 21 U/L 13-40 0493337312) eGFR Calculation mL/min/1.73m2 (Non-) (test code = 1953785743) eGFR Calculation mL/min/1.73m2 () (test code = 3957311779) MARCELLE (test code = MARCELLE) Association of Glomerular Filtration Rate (GFR) and Staging of Kidney Disease* + --+ --+ ------+| GFR (mL/min/1.73 m2) ?| With Kidney Damage ?| ?Without Kidney Damage+ --------+ --------+ +| ?>90 ?| ?Stage one ?| ? Normal ?+ ---+ ---+ -------+| ?60-89 ?| ?Stage two ?| ? Decreased GFR ? + --+ --+ ------+| ?30-59 ?| ?Stage three ?| ? Stage three ? + --+ --+ ------+| ?15-29 ?| ?Stage four ? | ? Stage four ?+ ---+ ---+ -------+| ?<15 (or dialysis) ? ?| ?Stage five ? | ? Stage five ?+ ---+ ---+ -------+ *Each stage assumes the associated GFR level has been in effect for at least three months. ?Stages 1 to 5, with or without kidney disease, indicate chronic kidney disease. Notes: Determination of stages one and two (with eGFR >59mL/min/1.73 m2) requires estimation of kidney damage for at least three months as defined by structural or functional abnormalities of the kidney, manifested by either:Pathological abnormalities or Markers of kidney damage (including abnormalities in the composition of the blood or urine or abnormalities in imaging tests). Lab Interpretation Abnormal (test code = 58344-8) [facility], [id number] 18:07:00 Test Item Value Reference Range Interpretation Comments LIPASE (test code = 9232685619) 44 U/L 0-220 Lab Interpretation (test code = Normal 54654-6) [facility] WITH [id number] 17:57:00 Test Item Value Reference Range Interpretation Comments WBC (test code = See_Comment [Automated message] 6690-2) The system [employer] generated this result transmitted ref erence range: 4.30 - 1 1.10 10*3/?L. The re ference range was not u sed to interpret this result as normal/abnor mal. RBC (test code = See_Comment [Automated message] 789-8) The system [employer] generated this result transmitted ref erence range: 3.93 - 5 .25 10*6/?L. The re ference range was not u sed to interpret this result as normal/abnor mal. HGB (test code = 13.7 g/dL 11.6-15 718-7) HCT (test code = 43.2 % 35.7-45.2 4544-3) MCV (test code = 88.2 fL 80.6-95.5 787-2) MCH (test code = 28.0 pg 25.9-32.8 785-6) MCHC (test code = 31.7 g/dL 31.6-35.1 786-4) RDW-SD (test code 40.2 fL 39-49.9 = 75865-5) RDW-CV (test code 12.4 % 12-15.5 = 788-0) PLT (test code = See_Comment [Automated message] 777-3) The system [employer] generated this result transmitted ref erence range: 166 - 35 8 10*3/?L. The re ference range was not u sed to interpret this result as normal/abnor mal. MPV (test code = 10.4 fL 9.5-12.9 07023-3) NRBC/100 WBC (test See_Comment [Automat ed message] code = 9905687653) The [email or web address] which generated this result transmitted ref erence range: 0.0 - 10 .0 /100 WBCs. The refer ence range was not u sed to interpret this result as normal/abnor mal. NRBC x10^3 (test <0.01 See_Comment [Automated message] code = 0328864050) The syste m which generated this result transmitted ref erence range: 10*3/?L. The reference range was not used to interpr et this result as normal/abnormal . GRAN MAT (NEUT) % 62.6 % (test code = 770-8) IMM GRAN % (test 0.60 % code = 9637113474) LYMPH % (test code 27.3 % = 736-9) MONO % (test code 7.2 % = 5905-5) EOS % (test code = 1.9 % 713-8) BASO % (test code 0.4 % = 706-2) GRAN MAT 5.98 10*3/uL 1.88-7.09 x10^3(ANC) (test code = 1218032778) IMM GRAN x10^3 0.06 10*3/uL 0-0.06 (test code = 7934512188) LYMPH x10^3 (test 2.61 10*3/uL 1.32-3.29 code = 731-0) MONO x10^3 (test 0.69 10*3/uL 0.33-0.92 code = 742-7) EOS x10^3 (test 0.18 10*3/uL 0.03-0.39 code = 711-2) BASO x10^3 (test 0.04 10*3/uL 0.01-0.07 code = 704-7) [facility] 1/2 AG-AB WITH [id number] 08:33:00 Test Item Value Reference Range Interpretation Comments HIV Negative Negative Semi-quantitative (test code = 26855-5) MARCELLE (test code = Non-reactive for HIV-1 MARCELLE) antigen and HIV-1/HIV-2 antibodies. ?No laboratory evidence of HIV infection. ?Repeat in 2-4 weeks if acute HIV infection is suspected. [facility] 1/2 AG-AB WITH [id number] 08:33:00 Test Item Value Reference Range Interpretation Comments HIV Negative Negative Semi-quantitative (test code = 88120-7) MARCELLE (test code = Non-reactive for HIV-1 MARCELLE) antigen and HIV-1/HIV-2 antibodies. ?No laboratory evidence of HIV infection. ?Repeat in 2-4 weeks if acute HIV infection is suspected. [facility]
[2021-02-03] MEDS ORDERED: NA CHLORIDE 0.9% 0 ML ONE (20:45)
[2021-02-03] MEDS ORDERED: ACETAMINOPHEN 500 MG TAB ONE (20:45)
[2021-02-03 21:08] LABS: Absolute Lymphocytes (CBC) 2.2 K/uL (0.7-4.9); Basophils % 0.4 % (0-1.3); Hematocrit 40.8 % (36.0-45.0); Lymphocytes % 20.4 % (15.3-44.8); RBC Red Blood Cell Count 4.73 M/uL (3.86-4.86)
[2021-02-03 21:13] LABS: Protime INR 0.95
[2021-02-03 21:30] LABS: ALT/SGPT 26 U/L (12-78); AST/SGOT 13 U/L (15-37); Albumin 4.4 g/dL (3.4-5.0); Alkaline Phosphatase 84 U/L (45-117); BUN Blood Urea Nitrogen 5 mg/dL (7-18); Bicarbonate 29 mmol/L (21-32); Bilirubin Direct < 0.1 mg/dL (0-0.2); Bilirubin Total 0.3 mg/dL (0.2-1.0); Glucose Level 98 mg/dL (74-106); Potassium 3.4 mmol/L (3.5-5.1); Protein, Total 7.9 g/dL (6.4-8.2); Sodium Level 145 mmol/L (136-145)
[2021-02-03 21:46] LABS: Lithium 0.6 mmol/L (0.6-1.2); Salicylates Level 6.1 mg/dL (2.8-20)
[2021-02-03 21:57] LABS: Urine Blood Negative (Negative); Urine Glucose Negative (Negative); Urine Protein Negative (Negative); Urine Specific Gravity 1.015 (1.005-1.030); Urine pH 7.5 (5.0-7.0)
[2021-02-03 22:15] LABS: Barbiturates NEGATIVE (NEGATIVE); Benzodiazepines NEGATIVE (NEGATIVE); Cocaine NEGATIVE (NEGATIVE); METHAMPHETAM NEGATIVE (NEGATIVE); Methadone NEGATIVE (NEGATIVE); Opiates NEGATIVE (NEGATIVE); Phencyclidine NEGATIVE (NEGATIVE); THC Cannibis NEGATIVE (NEGATIVE)
--- NOTE | 2021-02-03 22:59 | ER ---
Nurse's Notes [facility] Name: Mile Wang Age: 26 yrs Sex: Female : 1995 Arrival Date: 02/03/2021 Time: 19:54 Bed 17 Private MD: Diagnosis: Other seizures Presentation: 02/03 20:00 Chief complaint: EMS states: they were toned out by pt's friend for report of pt having bb seizures, pt seemed post ictal on their arrival but was alert and oriented during transport. Coronavirus screen: At this time, the client does not indicate any symptoms associated with coronavirus-19. Ebola Screen: No symptoms or risks identified at this time. Initial Sepsis Screen: Does the patient meet any 2 criteria? No. Patient's initial sepsis screen is negative. Does the patient have a suspected source of infection? No. Patient's initial sepsis screen is negative. Risk Assessment: Do you want to hurt yourself or someone else? Patient reports no desire to harm self or others. Onset of symptoms was February 03, 2021. 20:00 Method Of Arrival: EMS: [facility] bb 20:00 Acuity: BAIRON 3 bb Triage Assessment: 22:06 General: Appears in no apparent distress. Behavior is calm, cooperative. Pain: bb Complains of pain in headache. Neuro: Level of Consciousness is awake, alert, obeys commands, Oriented to person, place, time, situation. Cardiovascular: Heart tones S1 S2 present Capillary refill < 3 seconds Patient's skin is warm and dry. Respiratory: Respiratory effort is even, unlabored, Respiratory pattern is regular, Breath sounds are clear bilaterally. GI: Abdomen is round Bowel sounds present X 4 quads. Abd is soft and non tender X 4 quads. Derm: Skin is pink, warm \T\ dry. Musculoskeletal: Circulation, motion, and sensation intact. RELIABILITY SPECIALIST: 22:06 LMP 02/03/2021 bb Historical: - Allergies: 22:06 Doxycycline; bb 22:06 Macrobid; bb 22:06 tramadol; bb 22:06 Vimpat; bb - Home Meds: 22:06 buspirone 10 mg Oral tab 1 tab 2 times per day [Active]; Lamictal 100 mg Oral tab 1 tab bb 2 times per day [Active]; Sonterra Carbonate Oral [Active]; Sonterra Carbonate 900 mg Oral 1 tab nightly [Active]; - PMHx: 22:06 Anxiety; Bipolar disorder; Psychogenic Seizures; Seizures; stent in gallbladder; bb - PSHx: 22:06 Cholecystectomy; Tonsillectomy; bb - Immunization history:: Adult Immunizations up to date, Client reports receiving the 1st dose of the Covid vaccine. - Social history:: Smoking status: Patient denies any tobacco usage or history of. Patient/guardian denies using alcohol, street drugs. Screenin:00 Abuse screen: Denies threats or abuse. Nutritional screening: No deficits noted. bb Tuberculosis screening: No symptoms or risk factors identified. Fall Risk None identified. Assessment: 20:00 Reassessment: No changes from previously documented assessment. Patient is alert, bb oriented x 3, equal unlabored respirations, skin warm/dry/pink. see triage assessment. 22:15 Reassessment: Patient is alert, oriented x 3, equal unlabored respirations, skin bb warm/dry/pink. pt resting quietly states she is feeling better. 23:01 Reassessment: Patient is alert, oriented x 3, equal unlabored respirations, skin bb warm/dry/pink. pt verbalized understanding of and agrees to plan of care discharge instructions given pt ambulated with steady gait to exit. Vital Signs: 20:00 BP 109 / 64 Supine; Pulse 62; Resp 17; Pulse Ox 100% on R/A; bb 22:00 BP 113 / 67; Pulse 64; Resp 12 S; Pulse Ox 98% on R/A; bb 22:11 Weight 81.65 kg (R); Height 5 ft. 3 in. (160.02 cm) (R); bb 22:11 Body Mass Index 31.89 (81.65 kg, 160.02 cm) bb ED Course: 19:54 Patient arrived in ED. lp1 19:56 Samir Carter MD is Attending Physician. mh7 20:00 Arm band placed on Patient placed in an exam room, on a stretcher, on threat monitoring analyst, bb on pulse oximetry. 20:00 Patient has correct armband on for positive identification. Bed in low position. Call bb light in reach. vehicle monitor technician on. Pulse ox on. NIBP on. Warm blanket given. 20:25 Initial lab(s) drawn, by me, sent to lab. Missed attempt(s): 20 gauge in right bb antecubital area. Bleeding controlled, band aid applied, catheter tip intact. 20:31 Radha Miller, RN is Primary Nurse. bb 21:45 Urine collected: clean catch specimen, clear. bb 22:06 Triage completed. bb 22:20 No provider procedures requiring assistance completed. bb 22:57 Cristian Fam MD is Referral Physician. [facility] 23:02 Patient did not have IV access during this emergency room visit. bb Administered Medications: 20:50 Drug: Tylenol 1000 mg Route: PO; bb 21:50 Follow up: Response: No adverse reaction; Pain is decreased bb 22:36 Not Given (Physician Discretion): NS 0.9% 1000 ml IV at 1000 ml once bb Outcome: 22:58 Discharge ordered by . [facility] 23:01 Discharged to home ambulatory. 23:01 Condition: stable 23:01 Discharge instructions given to patient, Instructed on discharge instructions, follow up and referral plans. Demonstrated understanding of instructions, follow-up care. 23:02 Patient left the ED. bb Signatures: Radha Miller, JUAN M RN bb Sallie Barkley, RN RN lp1 Samir Carter MD MD [facility] Angelina Juárez RN RN kd3 Corrections: (The following items were deleted from the chart) 22:10 21:52 BP 109 / 64 Supine; Pulse 62bpm; Resp 17bpm; Pulse Ox 100% RA; kd3 bb 22:23 22:20 BP 135 / 83; Pulse 73bpm; Resp 16bpm; Spontaneous; Pulse Ox 100% RA; Pain 0/10; bbbb 22:25 22:19 Reassessment: Patient is alert, oriented x 3, equal unlabored respirations, skin bb warm/dry/pink. pt resting quietly, IV site intact, patent, with fluids infusing, family at bedside, awaiting completion of IV fluids prior to discharge bb
--- NOTE | 2021-02-03 22:59 | EDPHYS ---
Physician Documentation [facility] Name: Mile Wang Age: 26 yrs Sex: Female : 1995 Arrival Date: 02/03/2021 Time: 19:54 Bed 17 Private MD: JIM Physician Samir Carter HPI: 02/03 19:59 This 26 yrs old Female presents to ER via Unassigned with complaints of Seizures.. mh7 19:59 The patient presents with a history of multiple seizures, an unknown number, that last mh7 an unknown period of time. Character of seizure(s): Loss of consciousness: the patient experienced loss of consciousness, Unknown, Motor activity: generalized, shaking all over, Incontinence: none, Apnea: the patient did not experience apnea, Circulation: the patient did not experience evidence of pulse disturbance, Eye movements: are unknown. Seizure onset: just prior to arrival, today. Context: the seizure(s) was witnessed, by a friend, occurred at a friend's home, occurred while the patient was sitting, Contributing factors: unknown. Seizure Hx: Original onset: longstanding. Associated injury: The patient did not suffer any apparent associated injury. EMS care: none. Current symptoms: Currently, the patient is not experiencing any symptoms, the patient feels back to baseline. The patient has experienced similar episodes in the past, multiple times. PATIENT'S LIBRARIAN: 22:06 LMP 02/03/2021 bb Historical: - Allergies: 22:06 Doxycycline; bb 22:06 Macrobid; bb 22:06 tramadol; bb 22:06 Vimpat; bb - Home Meds: 22:06 buspirone 10 mg Oral tab 1 tab 2 times per day [Active]; Lamictal 100 mg Oral tab 1 tab bb 2 times per day [Active]; [place] Carbonate Oral [Active]; [place] Carbonate 900 mg Oral 1 tab nightly [Active]; - PMHx: 22:06 Anxiety; Bipolar disorder; Psychogenic Seizures; Seizures; stent in gallbladder; bb - PSHx: 22:06 Cholecystectomy; Tonsillectomy; bb - Immunization history:: Adult Immunizations up to date, Client reports receiving the 1st dose of the Covid vaccine. - Social history:: Smoking status: Patient denies any tobacco usage or history of. Patient/guardian denies using alcohol, street drugs. ROS: 19:59 Constitutional: Negative for fever, chills, and weight loss, Eyes: Negative for injury, mh7 pain, redness, and discharge, ENT: Negative for injury, pain, and discharge, Neck: Negative for injury, pain, and swelling, Cardiovascular: Negative for chest pain, palpitations, and edema, Respiratory: Negative for shortness of breath, cough, wheezing, and pleuritic chest pain. 19:59 Back: Negative for injury and pain, : Negative for injury, bleeding, discharge, and swelling, MS/Extremity: Negative for injury and deformity, Skin: Negative for injury, rash, and discoloration, Psych: Negative for depression, anxiety, suicide ideation, homicidal ideation, and hallucinations, Allergy/Immunology: Negative for hives, rash, and allergies, Endocrine: Negative for neck swelling, polydipsia, polyuria, polyphagia, and marked weight changes, Hematologic/Lymphatic: Negative for swollen nodes, abnormal bleeding, and unusual bruising. 19:59 Abdomen/GI: Positive for vomiting, X1, Negative for abdominal pain, diarrhea, constipation, abdominal cramps, abdominal distension, anorexia, dysphagia, hematemesis, black/tarry stool, rectal pain, rectal bleeding, bowel incontinence, flatulence. 19:59 Neuro: Negative for altered mental status, gait disturbance, numbness, speech changes, tingling, tinnitus, tremor, visual changes, weakness. Exam: 19:59 Constitutional: This is a well developed, well nourished patient who is awake, alert, mh7 and in no acute distress. Head/Face: Normocephalic, atraumatic. Eyes: Pupils equal round and reactive to light, extra-ocular motions intact. Lids and lashes normal. Conjunctiva and sclera are non-icteric and not injected. Cornea within normal limits. Periorbital areas with no swelling, redness, or edema. Neck: Trachea midline, no thyromegaly or masses palpated, and no cervical lymphadenopathy. Supple, full range of motion without nuchal rigidity, or vertebral point tenderness. No Meningismus. Chest/axilla: Normal chest wall appearance and motion. Nontender with no deformity. No lesions are appreciated. Cardiovascular: Regular rate and rhythm with a normal S1 and S2. No gallops, murmurs, or rubs. Normal PMI, no JVD. No pulse deficits. Respiratory: Lungs have equal breath sounds bilaterally, clear to auscultation and percussion. No rales, rhonchi or wheezes noted. No increased work of breathing, no retractions or nasal flaring. Abdomen/GI: Soft, non-tender, with normal bowel sounds. No distension or tympany. No guarding or rebound. No evidence of tenderness throughout. Back: No spinal tenderness. No costovertebral tenderness. Full range of motion. Skin: Warm, dry with normal turgor. Normal color with no rashes, no lesions, and no evidence of cellulitis. MS/ Extremity: Pulses equal, no cyanosis. Neurovascular intact. Full, normal range of motion. Neuro: Awake and alert, GCS 15, oriented to person, place, time, and situation. Cranial nerves II-XII grossly intact. Motor strength 5/5 in all extremities. Sensory grossly intact. Cerebellar exam normal. Normal gait. Psych: Awake, alert, with orientation to person, place and time. Behavior, mood, and affect are within normal limits. Vital Signs: 20:00 BP 109 / 64 Supine; Pulse 62; Resp 17; Pulse Ox 100% on R/A; bb 22:00 BP 113 / 67; Pulse 64; Resp 12 S; Pulse Ox 98% on R/A; bb 22:11 Weight 81.65 kg (R); Height 5 ft. 3 in. (160.02 cm) (R); bb 22:11 Body Mass Index 31.89 (81.65 kg, 160.02 cm) bb MDM: 22:55 Differential diagnosis: drug overdose, cardiac arrhythmia, seizure. Data reviewed: [facility] vital signs, nurses notes, EMS record, old medical records, lab test result(s), CBC, drug level(s), acetaminophen, alcohol, lithium, electrolytes, urinalysis, urine drug screen, UPT: negative EKG. Data interpreted: Pulse oximetry: on room air is 98 %. Interpretation: normal. Counseling: I had a detailed discussion with the patient and/or guardian regarding: the historical points, exam findings, and any diagnostic results supporting the discharge/admit diagnosis, lab results, the need for outpatient follow up, a neurologist. Response to treatment: the patient's symptoms have resolved after treatment, the patient's blood pressure is in an acceptable range, mental status has returned to baseline, the patient no longer shows bradycardia, the patient is not short of breath, the patient is not tachycardic, the patient's pain is gone, the patient's temperature has normalized. 22:58 Patient medically screened. [facility] 02/03 19:58 Order name: Acetaminophen [facility] 02/03 19:58 Order name: Basic Metabolic Panel [facility] 02/03 19:58 Order name: CBC with Diff [facility] 02/03 19:58 Order name: ETOH Level [facility] 02/03 19:58 Order name: Hepatic Function; Complete Time: 21:40 [facility] 02/03 19:58 Order name: PT-INR; Complete Time: 21:14 [facility] 02/03 19:58 Order name: Ptt, Activated; Complete Time: 21:14 [facility] 02/03 19:58 Order name: Salicylate; Complete Time: 22:54 [facility] 02/03 19:58 Order name: Urine Drug Screen; Complete Time: 22:54 [facility] 02/03 19:58 Order name: [place]; Complete Time: 22:54 [facility] 02/03 19:59 Order name: Acetaminophen Level; Complete Time: 21:40 [facility] 02/03 19:59 Order name: Basic Metabolic Panel; Complete Time: 21:40 [facility] 02/03 19:59 Order name: CBC with Automated Diff; Complete Time: 21:14 [facility] 02/03 19:59 Order name: Alcohol Serum/Plasma; Complete Time: 21:23 [facility] 02/03 19:58 Order name: EKG; Complete Time: 19:59 [facility] 02/03 19:58 Order name: EKG - Nurse/Tech; Complete Time: 21:04 [facility] 02/03 19:58 Order name: Labs collected and sent; Complete Time: 21:04 [facility] 02/03 19:58 Order name: Urine Dipstick-Ancillary (obtain specimen); Complete Time: 21:56 [facility] 02/03 19:58 Order name: Urine Test (obtain specimen); Complete Time: 21:56 [facility] 02/03 21:56 Order name: Urine Dipstick-Ancillary; Complete Time: 22:54 [facility] 02/03 21:57 Order name: Urine --Ancillary (enter results) [facility] 02/03 21:57 Order name: Urine --Ancillary EDMS Administered Medications: 20:50 Drug: Tylenol 1000 mg Route: PO; bb 21:50 Follow up: Response: No adverse reaction; Pain is decreased bb 22:36 Not Given (Physician Discretion): NS 0.9% 1000 ml IV at 1000 ml once bb Disposition Summary: 02/03/21 22:58 Discharge Ordered Location: Home [facility] Problem: an acute exacerbation [facility] Symptoms: have improved [facility] Condition: Stable [facility] Diagnosis - Other seizures [facility] Followup: [facility] - With: Private Physician - When: 1 - 2 days - Reason: Worsening of condition, Recheck today's complaints, Continuance of care, Re-evaluation by your physician Followup: [facility] - With: Cristian Fam MD - When: 1 - 2 days - Reason: Worsening of condition, Recheck today's complaints Discharge Instructions: - Discharge Summary Sheet [facility] - Seizure, Adult, [id number] [facility] Forms: - Medication Reconciliation Form [facility] - Thank You Letter [facility] - Antibiotic Education [facility] - Prescription Opioid Use [facility] Signatures: Dispatcher [employer] Radha Ray RN RN Samir Barr MD MD [facility]
[2021-02-03 23:10] VITALS: BP 113/67; O2SAT 98
[2021-02-03 23:56] LABS: Urine Specific Gravity/Preg 1.015 (1.005-1.030)
== END 2021-02-03 23:02 | disposition home or self-care (01) ==
LOC: ER 19:49
DX: G40.89 Other seizures (principal); F31.9 Bipolar disorder, unspecified; Z88.3 Allergy status to other anti-infective agents
CPT/HCPCS: 36415; 80048; 80076; 80178; 80307; 80320; 80329; 81003; 81025; 85025; 85610; 85730; 93005; 99284; J7030

== ENCOUNTER 2021-02-04 15:34 | Emergency (ER) | payer OTHER ==
--- OUTSIDE RECORDS SUMMARY | 2021-02-04 15:48 | XMS REPORT | Continuity of Care Document ---
:1995 Author Organization [facility] t Address [address] [place] [address] Care Team Providers Name Role Phone Asked, [...] Type Policy Number Effective Date Expiration Date [facility] [id number] 2017 [employer]ICA[employer] 00:00:00 Advance Directives Directive Decision Effective Termination Comments Source Date Date Healthcare Agents on N/A Univ ersity FileNameRelationshipHealthcare [facility] Agent Medical RelationshipCommunication[facility] [phone] (Mobile) Problems Condition Condition Condition Status Onset Resolution Last Treating Co mments Source Name Details Category Date Date Treatment Clinician Date Frequent Frequent Disease Active Unive rs UTI UTI 8-03 ity of 00:: [address] Seizures Seizures Disease Active Unive rs 7-26 ity of 00:: [address] UTI UTI Disease Active Univers symptoms symptoms 4-01 ity of 00:00: [place] [facility] Other Other Disease Active Univers general general 4-01 [place] and advice and advice 00 [place] dical [facility] contracept contracept billy billy management management Pain Pain Disease Active Univers pelvic pelvic 4-16 ity of 00:: [address] Routine Routine Disease Active Univers 2-25 it y of follow-up follow-up 00:00: [address] Abnormal Abnormal Disease Active Unive rs EKG EKG 8-02 ity of 00:00: [address] History of History of Disease Active [...] Quantity Comments Source Exposure to Not sure [facility] SARS-CoV-2 (event) Medica l Branch Alcohol intake 2020-11-26 2020-11-26 0 /d [facility] 00:00:00 00:00:00 Medical Branch Tobacco use and 2015-12-21 2015-12-21 Never used [facility] exposure 00:00:00 00:00:00 Medical Branch Sex Assigned At [birth year] [facility] 00:00:00 00:00:00 Medical Branch Smoking Status Start Date Stop Date Source Never smoker [facility] Medications Ordered Filled Start Stop Current Ordering Indication Dosage Frequency Signature Comments Components Source Medication Medication Date Date Medication? Clinician (SIG) Name Name lamoTRIgine 2020-03 Yes [id number] Take 4 by Univers 25 mg 0-22 mouth BID. ity of disintegrat 00:00: [place] ing tablet 00 Medical Branch lamoTRIgine 2020-03 Yes [id number] Take 4 by Univers 25 mg 0-22 mouth BID. ity of disintegrat 00:00: [place] ing tablet 00 Medical Branch lamoTRIgine Yes [id number] Take 3 by Univers 25 mg 9-20 mouth BID ity of disintegrat 00:00[place] 00 days. When Med ical prescripti Branch on completes. lamoTRIgine 2020- No [id number] Take 3 by Univers 25 mg 9-20 10-22 mouth BID ity of disintegrat 00:00: 00:00 for 14 [place] ing tablet 00 :00 days. When Med ical prescripti Branch on completes. trospium 20 Yes [id number] 20mg Take 1 Univers mg tablet 8-26 tablet by ity o f 00:00: mouth 2 [place] 00 (two) Medical times Branch daily. trospium 20 2020-0 Yes [id number] 20mg Take 1 Univers mg tablet 8-26 tablet by ity o f 00:00: mouth 2 (two) Medical times Branch daily. trospium 20 2020-0 Yes [id number] 20mg Take 1 Univers mg tablet 8-26 tablet by ity o f 00:00: mouth 2 (two) Medical times Branch daily. trospium 20 2020-0 Yes [id number] 20mg Take 1 Univers mg tablet 8-26 tablet by ity o f 00:00: mouth 2 (two) Medical times Branch daily. trospium 20 2020-0 Yes [id number] 20mg Take 1 Univers mg tablet 8-26 tablet by ity o f 00:00: mouth 2 (two) Medical times Branch daily. trospium 20 2020-0 Yes [id number] 20mg Take 1 Univers mg tablet 8-26 tablet by ity o f 00:00: mouth [place] (two) Medical times Branch daily. trospium 20 2020-0 Yes [id number] 20mg Take 1 Univers mg tablet 8-26 tablet by ity o f 00:00: mouth 2 (two) Medical times Branch daily. lamoTRIgine 2020-2020- No [id number] 25mg Take 1 Univers 25 mg 8-13 08-21 tablet by ity of tablet 00:00: 04:59 mouth [place] 00 :00 every Medical evening Branch for 7 days. lamoTRIgine 2020-2020- No [id number] 25mg Take 1 Univers 25 mg 8-13 08-21 tablet by ity of tablet 00:00: 04:59 mouth [place] 00 :00 every Medical evening Branch for 7 days. lamoTRIgine 2020-2020- No [id number] 25mg Take 1 Univers 25 mg 8-13 08-21 tablet by ity of tablet 00:00: 04:59 mouth [place] 00 :00 every Medical evening Branch for 7 days. lamoTRIgine 2020- No [id number] 25mg Take 1 Univers 25 mg 8-13 08-21 tablet by ity of tablet 00:00: 04:59 mouth [place] 00 :00 every Medical evening Branch for 7 days. lamoTRIgine 2020- No [id number] 25mg Take 1 Univers 25 mg 8-13 -21 tablet by ity of tablet 00:00: 04:59 mouth [place] 00 :00 every Medical evening Branch for 7 days. lamoTRIgine 2020- No [id number] 25mg Take 1 Univers 25 mg 8-13 -21 tablet by ity of tablet 00:00: 04:59 mouth [place] 00 :00 every Medical evening Branch for 7 days. lamoTRIgine 2020- No [id number] 25mg Take 1 Univers 25 mg 8-13 -21 tablet by ity of tablet 00:00: 04:59 mouth [place] 00 :00 every Medical evening Branch for 7 days. lamoTRIgine 2020- No [id number] 25mg Take 1 Univers 25 mg 8-19 10- tablet by ity of tablet 00:00: 04:59 mouth [place] 00 :00 every Medical evening Branch for 7 days. lamoTRIgine 2020- No [id number] 25mg Take 1 Univers 25 mg 8-19 10- tablet by ity of tablet 00:00: 04:59 mouth [place] 00 :00 every Medical evening Branch for 7 days. lamoTRIgine 2020- No [id number] 25mg Take 1 Univers 25 mg 8-19 10- tablet by ity of tablet 00:00: 04:59 mouth [place] 00 :00 every Medical evening Branch for 7 days. lamoTRIgine 2020- No [id number] 25mg Take 1 Univers 25 mg 8-13 - tablet by ity of tablet 00:00: 04:59 mouth [place] 00 :00 every Medical evening Branch for 7 days. gadoteridol 2020- No [id number] .2mL/kg 0.2 mL/kg, Univers (PROHANCE-2 10-18 Intravenou i ty of 0 mL) 18:45: 18:46 s, ONCE, 1 [place] injection 00 :00 dose, [place] Medic al 0.2 mL/kg 10/18/20 at [facility] 1345, Routine metroNIDAZO Yes [id number] 500mg Take 1 Univers LE (FLAGYL) 10-15 tablet by ity of 500 mg 00:00: mouth 2 [place] tablet 00 (two) Medical times Branch daily. metroNIDAZO Yes [id number] 500mg Take 1 Univers LE (FLAGYL) - tablet by ity of 500 mg 00:00: mouth 2 [place] tablet 00 (two) Medical times Branch daily. metroNIDAZO 2020- No [id number] 500mg Take 1 Univers LE (FLAGYL) 10-15 tablet by it y of 500 mg 00:00: 00:00 mouth 2 [place] tablet 00 :00 (two) Medical times Branch daily. metroNIDAZO 2020- No [id number] 500mg Take 1 Univers LE (FLAGYL) 10-15 tablet by it y of 500 mg 00:00: 00:00 mouth 2 [place] tablet 00 :00 (two) Medical times [place] daily. metroNIDAZO 2020- No [id number] 500mg Take 1 Univers LE (FLAGYL) 10-15 tablet by it y of 500 mg 00:00: 00:00 mouth 2 [place] tablet 00 :00 (two) Medical times [place] daily. metroNIDAZO 2020- No [id number] 500mg Take 1 Univers LE (FLAGYL) 10-15 tablet by it y of 500 mg 00:00: 04:59 mouth 2 [place] tablet 00 :00 (two) Medical times [place] daily for 7 days. metroNIDAZO 2020- No [id number] 500mg Take 1 Univers LE (FLAGYL) 10-15 tablet by it y of 500 mg 00:00: 00:00 mouth 2 [place] tablet 00 :00 (two) Medical times [place] daily for 7 days. azithromyci 2020- No [id number] 1000mg Take 2 Univers n 10-11 08-06 tablets by ity of (ZITHROMAX) 00:00: 04:59 mouth once [place] 500 mg 00 :00 now for 1 Medical tablet dose. Branch LITHIUM Yes Take by Univer s CARBONATE 10-09 mouth. ity of ORAL 21:04: [place] 25 Medical Branch busPIRone Yes 10mg Take 10 mg Un aubree 10 mg 10-09 by mouth 2 ity of tablet 21:04: (two) [place] 25 times Medical daily. Branch LITHIUM 2020-0 Yes Take by Univer s CARBONATE 8-03 mouth. ity of ORAL 21:04: [place] [address] Medical Branch busPIRone 2020-0 Yes 10mg Take 10 mg Un aubree 10 mg 8-03 by mouth 2 ity of tablet 21:04: (two) [place] 25 times Medical daily. Branch LITHIUM 2020-0 Yes Take by Univer s CARBONATE 8-03 mouth. ity of ORAL 21:04: [place] [address] Medical Branch busPIRone 2020-0 Yes 10mg Take 10 mg Un aubree 10 mg 8-03 by mouth 2 ity of tablet 21:04: (two) [place] 25 times Medical daily. Branch LITHIUM 2020-0 Yes Take by Univer s CARBONATE 8-03 mouth. ity of ORAL 21:04: [place] [address] Medical Branch busPIRone 2020-0 Yes 10mg Take 10 mg Un aubree 10 mg 8-03 by mouth 2 ity of tablet 21:04: (two) [place] 25 times Medical daily. Branch LITHIUM 2020-0 Yes Take by Univer s CARBONATE 8-03 mouth. ity of ORAL 21:04: [place] [address] Medical Branch busPIRone 2020-0 Yes 10mg Take 10 mg Un a[place] 10 mg 8-03 by mouth 2 ity of tablet 21:04: (two) [place] 25 times Medical daily. Branch LITHIUM 2020-0 Yes Take by Univer s CARBONATE 8-03 mouth. ity of ORAL 21:04: [place] [address] Medical Branch busPIRone 2020-0 Yes 10mg Take 10 mg Un a[place] 10 mg 8-03 by mouth 2 ity of tablet 21:04: (two) [place] 25 times Medical daily. Branch LITHIUM 2020-0 Yes Take by Univer s CARBONATE 8-03 mouth. ity of ORAL 21:04: [place] [address] Medical Branch busPIRone 2020-0 Yes 10mg Take 10 mg Un a[place] 10 mg 8-03 by mouth 2 ity of tablet 21:04: (two) [place] 25 times Medical daily. Branch LITHIUM 2020-0 Yes Take by Univer s CARBONATE 8-03 mouth. ity of ORAL 21:04: [place] [address] Medical Branch busPIRone 1-0 Yes 10mg Take [...] CARBONATE 8-03 mouth. ity of ORAL 16:04: [place] [address] Medical Branch busPIRone 2020-0 Yes 10mg Take 10 mg Un [place] 10 mg 8-03 by mouth 2 ity of tablet 16:04: (two) [place] 25 times Medical daily. Branch LITHIUM 2020-0 Yes Take by Univer s CARBONATE 8-03 mouth. ity of ORAL 16:04: [place] [address] Medical Branch busPIRone 2020-0 Yes 10mg Take 10 mg Un [place] 10 mg 8-03 by mouth 2 ity of tablet 16:04: (two) [place] 25 times Medical daily. Branch LITHIUM Yes Take by Univer s CARBONATE 7-30 mouth. ity of ORAL 15:22: [address] busPIRone Yes 10mg Take 10 mg Un [place] 10 mg 7-30 by mouth 2 ity of tablet 15:22: (two) [place] 11 times Medical daily. Branch LITHIUM Yes Take by Univer s CARBONATE 7-30 mouth. ity of ORAL 15:22: [address] busPIRone Yes 10mg Take 10 mg Un [place] 10 mg 7-30 by mouth 2 ity of tablet 15:22: (two) [place] 11 times Medical daily. Branch LITHIUM Yes Take by Univer s CARBONATE 7-30 mouth. ity of ORAL 15:22: [address] busPIRone Yes 10mg Take 10 mg Un [place] 10 mg 7-30 by mouth 2 ity of tablet 15:22: (two) [place] 11 times Medical daily. Luis lamoTRIgine 2020- No [id number] Take 1 Univers 25 mg 7-30 09-27 [...] daily for 30 days. lamoTRIgine 2020- No [id number] Take 1 Univers 25 mg 7-30 09-27 [...] daily for 30 days. lamoTRIgine 2020- No [id number] Take 1 Univers 25 mg 7-30 09-27 [...] times daily for 30 days. lamoTRIgine No [id number] Take 1 Univers 25 mg 7-30 09-27 [...] times daily for 30 days. lamoTRIgine No [id number] Take 1 Univers 25 mg 7-30 09-27 [...] daily for 30 days. lamoTRIgine 2020- No [id number] Take 1 Univers 25 mg 7-30 09-27 [...] daily for 30 days. lamoTRIgine 2020- No [id number] Take 1 Univers 25 mg 7-30 09-27 [...] times daily for 30 days. lamoTRIgine No [id number] Take 1 Univers 25 mg 7-30 09-27 [...] times daily for 30 days. lamoTRIgine No [id number] Take 1 Univers 25 mg 7-30 09-27 [...] times daily for 30 days. lamoTRIgine No [id number] Take 1 Univers 25 mg 7-30 09-27 [...] daily for 30 days. lamoTRIgine 2020- No [id number] Take 1 Univers 25 mg 7-30 09-27 [...] daily for 30 days. lamoTRIgine 2020- No [id number] Take 1 Univers 25 mg 7-30 09-27 [...] times daily for 30 days. lamoTRIgine No [id number] Take 1 Univers 25 mg 7-30 09-27 [...] daily for 30 days. lamoTRIgine 2020- No [id number] Take 1 Univers 25 mg 10-05 tablet by ity of tablet 00:00: 04:59 mouth [place] 00 :00 daily for Medical 7 days, [place] THEN 1 tablet 2 (two) times daily for 7 days, THEN 2 tablets every morning for 7 days, THEN 2 tablets 2 (two) times daily for 7 days, THEN 4 tablets 2 (two) times daily for 30 days. lamoTRIgine 2020- No [id number] Take 1 Univers 25 mg 10-05 tablet by ity of tablet 00:00: 00:00 mouth [place] 00 :00 daily for Medical 7 days, [place] THEN 1 tablet 2 (two) times daily for 7 days, THEN 2 tablets every morning for 7 days, THEN 2 tablets 2 (two) times daily for 7 days, THEN 4 tablets 2 (two) times daily for 30 days. hydrOXYzine Yes 50mg 50 mg, Univ ers (ATARAX) 10-04 Oral, ity of tablet 50 21:33: Q8HPRN, [place] mg 44 Starting Medical [facility] 10/04/20 at 1633, Until Discontinu ed, Routine, Anxiety LORazepam Yes 2mg 2 mg, Univers (ATIVAN) 10-03 Intramuscu ity o f injection 2 20:47: lar, PRN - [place] mg 05 SEE Medical [facility] NS, 2 doses, Starting [facility] 10/03/20 at 1547, Until Discontinu ed, STAT, For seizure lasting two minutes or longer. hydrOXYzine 2020- No 10mg 10 mg, Uni vers (ATARAX) 10-03 Oral, Q8H, ity of tablet 10 20:00: 21:22 [place] dose [place] mg 00 :10 on [facility] 10/03/20 at Branch 1500, Until Discontinu ed, Routine lithium Yes 600mg 600 mg, Univer s carbonate 10-02 Oral, QAM, ity of CR tablet 14:00: First dose [place] 600 mg 00 on Thu [facility] 7/27/21 at Branch 0900, Until Discontinu ed busPIRone 2020-0 Yes 10mg 10 mg, Univer s (BUSPAR) 7-27 Oral, BID, ity o f tablet 10 01:00: First dose [place] mg 00 on [facility] 10/01/20 at Branch 2000, Until Discontinu ed, Routine famotidine 2020-0 Yes 20mg 20 mg, Unive rs (PEPCID AC) 7-27 Oral, BID, it y of tablet 20 01:00: First dose [place] mg 00 on [facility] 10/01/20 at Branch 2000, Until Discontinu [...] First dose [place] capsule 900 00 on [facility] mg 10/01/20 at Branch 1700, Until Discontinu ed, Routine LITHIUM 2020-0 Yes Take by Univer s CARBONATE 7- mouth. ity of ORAL 17:24: [address] busPIRone 2020-0 Yes 10mg Take 10 mg Un [place] 10 mg 7- by mouth 2 ity of tablet 17:24: (two) [place] 16 times Medical daily. Branch LITHIUM 2020-0 Yes Take by Univer s CARBONATE 7- mouth. ity of ORAL 17:24: [address] busPIRone 2020-0 Yes 10mg Take 10 mg Un [place] 10 mg 7- by mouth 2 ity of tablet 17:24: (two) [place] 16 times Medical daily. [place] topiramate 2020-0 2020- No 100mg Take 100 U nivers (TOPAMAX) 7-26 07-26 mg by ity of 100 mg 17:24: 00:00 mouth. [place] tablet 16 :00 [facility] topiramate 2020-0 2020- No 100mg Take 100 U nivers (TOPAMAX) 7-26 07-26 mg by ity of 100 mg 17:24: 00:00 mouth. [place] tablet 16 :00 [facility] topiramate 2020- No 100mg Take 100 U nivers (TOPAMAX) 10-01 mg by ity of 100 mg 17:24: 00:00 mouth. [place] tablet 16 :00 [facility] ondansetron Yes 4mg 4 mg, Slow Univers (ZOFRAN 10-01 IV Push, ity of (PF)) 17:23: Q6HPRN, [place] injection 4 23 Starting Medi tressa mg [facility] 10/01/20 at 1223, Until Discontinu ed, Routine, Nausea and Vomiting (N/V) acetaminoph Yes 650mg 650 mg, Un aubree en 10-01 Oral, ity of (TYLENOL) 17:23: Q6HPRN, [place] tablet 650 17 Starting Medic al mg [facility] 10/01/20 at 1223, Until Discontinu ed, Routine, Pain (scale 1-3) clonazePAM No .5mg 0.5 mg, Uni vers (KLONOPIN) 09-13 Oral, ity of tablet 0.5 04:45: 03:48 ONCE, 1 [place] as mg 00 :00 dose, [facility] 09/12/20 at Branch 2345, Routine famotidine No 20mg 20 mg, IV U nivers 20 mg in NS 09-13 Piggyback, i ty of 50 ml 02:45: 04:38 ONCE, 1 [place] (PEPCID) 20 00 :00 dose, Thu Med ical mg/50 mL 09/12/20 at [place] Piggyback 2145, 50 20 mg mL diphenhydrA 2020- No 25mg 25 mg, Uni vers MINE 09-13 Slow IV ity of (BENADRYL) 02:45: 02:26 Push, [place] injection 00 :00 ONCE, 1 Medical 25 mg dose, [facility] 09/12/20 at 2145, STAT methylPREDN 2020- [...] 09/11/20 at Branch 2145, [place] hydrOXYzine Yes [id number] 50mg Take 1 Univers (VISTARIL) 7-07 capsule by ity of 50 mg 00:00: mouth 3 [place] capsule 00 (three) Medical times Branch daily as needed for Itching. hydrOXYzine Yes [id number] 50mg Take 1 Univers (VISTARIL) 7-07 capsule by ity of 50 mg 00:00: mouth 3 [place] capsule 00 (three) Medical times Branch daily as needed for Itching. hydrOXYzine Yes [id number] 50mg Take 1 Univers (VISTARIL) 7-07 capsule by ity of 50 mg 00:00: mouth 3 [place] capsule 00 (three) Medical times Branch daily as needed for Itching. hydrOXYzine Yes [id number] 50mg Take 1 Univers (VISTARIL) 7-07 capsule by ity of 50 mg 00:00: mouth 3 [place] capsule 00 (three) Medical times Branch daily as needed for Itching. hydrOXYzine Yes [id number] 50mg Take 1 Univers (VISTARIL) 7-07 capsule by ity of 50 mg 00:00: mouth 3 [place] capsule 00 (three) Medical times Branch daily as needed for Itching. hydrOXYzine Yes [id number] 50mg Take 1 Univers (VISTARIL) 7-07 capsule by ity of 50 mg 00:00: mouth 3 [place] capsule 00 (three) Medical times Branch daily as needed for Itching. hydrOXYzine 0 Yes [id number] 50mg Take 1 Univers (VISTARIL) 7-07 capsule by ity of 50 mg 00:00: mouth 3 [place] capsule 00 (three) Medical times Branch daily as needed for Itching. hydrOXYzine Yes [id number] 50mg Take 1 Univers (VISTARIL) 7-07 capsule by ity of 50 mg 00:00: mouth 3 [place] capsule 00 (three) Medical times Branch daily as needed for Itching. hydrOXYzine 2020-0 Yes [id number] 50mg Take 1 Univers (VISTARIL) 7-07 capsule by ity of 50 mg 00:00: mouth 3 [place] capsule 00 (three) Medical times Branch daily as needed for Itching. hydrOXYzine 2020-0 Yes [id number] 50mg Take 1 Univers (VISTARIL) 7-07 capsule by ity of 50 mg 00:00: mouth 3 [place] capsule 00 (three) Medical times Branch daily as needed for Itching. hydrOXYzine 2020-0 Yes [id number] 50mg Take 1 Univers (VISTARIL) 7-07 capsule by ity of 50 mg 00:00: mouth 3 [place] capsule 00 (three) Medical times Branch daily as needed for Itching. hydrOXYzine 2020-0 Yes [id number] 50mg Take 1 Univers (VISTARIL) 7-07 capsule by ity of 50 mg 00:00: mouth 3 [place] capsule 00 (three) Medical times Branch daily as needed for Itching. hydrOXYzine 2020-0 Yes [id number] 50mg Take 1 Univers (VISTARIL) 7-07 capsule by ity of 50 mg 00:00: mouth 3 [place] capsule 00 (three) Medical times Branch daily as needed for Itching. hydrOXYzine 2020-0 Yes [id number] 50mg Take 1 Univers (VISTARIL) 7-07 capsule by ity of 50 mg 00:00: mouth 3 [place] capsule 00 (three) Medical times Branch daily as needed for Itching. hydrOXYzine 2020-0 Yes [id number] 50mg Take 1 Univers (VISTARIL) 7-07 capsule by ity of 50 mg 00:00: mouth 3 [place] capsule 00 (three) Medical times Branch daily as needed for Itching. hydrOXYzine 2020-0 Yes [id number] 50mg Take 1 Univers (VISTARIL) 7-07 capsule by ity of 50 mg 00:00: mouth 3 [place] capsule 00 (three) Medical times Branch daily as needed for Itching. hydrOXYzine 2020-0 2021- No [id number] 50mg Take 1 Univers (VISTARIL) 7-07 08-26 capsule by it y of 50 mg 00:00: 00:00 mouth 3 [place] capsule 00 :00 (three) Medical times Branch daily as needed for Itching. hydrOXYzine 2020- No [id number] 50mg Take 1 Univers (VISTARIL) 09-12 capsule by it y of 50 mg 00:00: 00:00 mouth 3 [place] capsule 00 :00 (three) Medical times Branch daily as needed for Itching. hydrOXYzine 2020- No [id number] 50mg Take 1 Univers (VISTARIL) 09-12 capsule by it y of 50 mg 00:00: 00:00 mouth 3 [place] capsule 00 :00 (three) Medical times Branch daily as needed for Itching. gabapentin 2020- No [id number] 300mg Take 1 Univers 300 mg 09-12 4105 capsule by ity of capsule 00:00: 04:59 mouth 3 [place] 00 :00 (three) Medical times Branch daily for 15 days. gabapentin 2020-2020- No [id number] 300mg Take 1 Univers 300 mg 09-12 4105 capsule by ity of capsule 00:00: 04:59 mouth 3 [place] 00 :00 (three) Medical times Branch daily for 15 days. gabapentin 2020- No [id number] 300mg Take 1 Univers 300 mg 09-12 4105 capsule by ity of capsule 00:00: 04:59 mouth 3 [place] 00 :00 (three) Medical times Branch daily for 15 days. gabapentin 2020- No [id number] 300mg Take 1 Univers 300 mg 09-12 4105 capsule by ity of capsule 00:00: 04:59 mouth 3 [place] 00 :00 (three) Medical times Branch daily for 15 days. gabapentin 2020-2020- No [id number] 300mg Take 1 Univers 300 mg 09-12 4105 capsule by ity of capsule 00:00: 04:59 mouth 3 [place] 00 :00 (three) Medical times Branch daily for 15 days. carBAMazepi 2020- Yes [id number] 200mg Take 1 Univers ne 7-06 tablet by ity of (TEGRETOL 00:00: mouth 2 [place] XR) 200 mg 00 (two) Medical 12 hr times Branch tablet daily. carBAMazepi 2020-0 Yes [id number] 200mg Take 1 Univers ne 7-06 tablet by ity of (TEGRETOL 00:00: mouth 2 [place] XR) 200 mg 00 (two) Medical 12 hr times Branch tablet daily. carBAMazepi 2020-0 Yes [id number] 200mg Take 1 Univers ne 7-06 tablet by ity of (TEGRETOL 00:00: mouth 2 [place] XR) 200 mg 00 (two) Medical 12 hr times Branch tablet daily. carBAMazepi 2020-0 Yes [id number] 200mg Take 1 Univers ne 7-06 tablet by ity of (TEGRETOL 00:00: mouth 2 [place] XR) 200 mg 00 (two) Medical 12 hr times Branch tablet daily. carBAMazepi 2020-0 Yes [id number] 200mg Take 1 Univers ne 7-06 tablet by ity of (TEGRETOL 00:00: mouth 2 [place] XR) 200 mg 00 (two) Medical 12 hr times Branch tablet daily. carBAMazepi 2020-0 Yes [id number] 200mg Take 1 Univers ne 7-06 tablet by ity of (TEGRETOL 00:00: mouth 2 [place] XR) 200 mg 00 (two) Medical 12 hr times Branch tablet daily. carBAMazepi 2020-0 Yes [id number] 200mg Take 1 Univers ne 7-06 tablet by ity of (TEGRETOL 00:00: mouth 2 [place] XR) 200 mg 00 (two) Medical 12 hr times Branch tablet daily. carBAMazepi 2020-0 2020- No [id number] 200mg Take 1 Univers ne 7- 07-26 tablet by ity of (TEGRETOL 00:00: 00:00 mouth [place] XR[place] 200 mg 00 :00 (two) Medical 12 hr times Branch tablet daily. carBAMazepi 2020-0 2020- No [id number] 200mg Take 1 Univers ne 7-06 07-26 tablet by ity of (TEGRETOL 00:00: 00:00 mouth 2 [place] XR[place] 200 mg 00 :00 (two) Medical 12 hr times Branch tablet daily. carBAMazepi 2020-0 2020- No [id number] 200mg Take 1 Univers ne 7-06 07-26 [...] Fri Medical 08/31/20 at Branch 1345, Routine
hourly team members approving Restricted medication : [facility] busPIRone [...] CARBONATE 6-25 mouth. ity of ORAL 18:41: [address] LITHIUM Yes Take by Univer s CARBONATE 6-25 mouth. ity of ORAL 18:41: [address] LITHIUM Yes Take by Univer s CARBONATE 6-25 mouth. ity of ORAL 18:41: [address] LITHIUM Yes Take by Univer s CARBONATE 6-25 mouth. ity of ORAL 18:41: [address] LITHIUM Yes Take by Univer s CARBONATE 6-25 mouth. ity of ORAL 18:41: [address] LITHIUM Yes Take by Univer s CARBONATE 6-25 mouth. ity of ORAL 18:41: [address] LITHIUM Yes Take by Univer s CARBONATE 6-25 mouth. ity of ORAL 18:41: [address] Lacosamide Yes [id number] 100mg Take 1 Univers (VIMPAT) 6-25 tablet by ity of 100 mg 00:00: mouth [place] tablet 00 every 12 Medical (twelve) Branch hours. Lacosamide 2020- No [id number] 100mg Take 1 Univers (VIMPAT) 6-25 07-06 tablet by ity o f 100 mg 00:00: 00:00 mouth [place] tablet 00 :00 every 12 Medical (twelve) Branch hours. acetaminoph 2020- No 1000mg 1,000 mg, Univers en 6-24 06-24 Oral, ity of (TYLENOL) 03:15: 02:16 ONCE, 1 [place] tablet 00 :00 dose, Wed Medical 1,000 mg 08/29/20 at [facility] h 2215, SHAYNA ibuprofen 0 Yes [id number] 600mg Take 1 Univers 600 mg 6-23 tablet by ity of tablet 00:00: mouth [place] 00 every 6 Medical (six) Branch hours as needed for Pain (scale 4-6). benzonatate 0 Yes [id number] 200mg Take 1 Univers 200 mg 6-23 capsule by ity of capsule 00:00: mouth 3 [place] 00 (three) Medical times Branch daily as needed for Cough for up to 20 doses. ondansetron 0 Yes [id number] 4mg Take 1 Univers (ZOFRAN 6-23 tablet by ity of ODT) 4 mg 00:00: mouth [place] disintegrat 00 every 8 Medic al ing tablet (eight) Branch hours as needed for Nausea and Vomiting (N/V). ibuprofen 2020-0 Yes [id number] 600mg Take 1 Univers 600 mg 6-23 tablet by ity of tablet 00:00: mouth [place] 00 every 6 Medical (six) Branch hours as needed for Pain (scale 4-6). benzonatate 2020-0 Yes [id number] 200mg Take 1 Univers 200 mg 6-23 capsule by ity of capsule 00:00: mouth 3 [place] 00 (three) Medical times Branch daily as needed for Cough for up to 20 doses. ondansetron 2020-0 Yes [id number] 4mg Take 1 Univers (ZOFRAN 6-23 tablet by ity of ODT) 4 mg 00:00: mouth [place] disintegrat 00 every 8 Medic al ing tablet (eight) Branch hours as needed for Nausea and Vomiting (N/V). ibuprofen 2020-0 Yes [id number] 600mg Take 1 Univers 600 mg 6-23 tablet by ity of tablet 00:00: mouth [place] 00 every 6 Medical (six) Branch hours as needed for Pain (scale 4-6). benzonatate 2020-0 Yes [id number] 200mg Take 1 [facility] 200 mg 6-23 capsule by [facility] of capsule 00:00: mouth 3 [place] 00 (three) Medical times Branch daily as needed for Cough for up to 20 doses. ondansetron 2020-0 Yes [id number] 4mg Take 1 [facility] (ZOFRAN 6-23 tablet by ity of ODT) 4 mg 00:00: mouth [place] disintegrat 00 every 8 Medic al ing tablet (eight) Branch hours as needed for Nausea and Vomiting (N/V). ibuprofen 1-0 Yes [id number] 600mg Take 1 [facility] 600 mg 6-23 tablet by ity of tablet 00:00: mouth [place] 00 every 6 Medical (six) Branch hours as needed for Pain (scale 4-6). benzonatate 2021-0 Yes [id number] 200mg Take 1 [facility] 200 mg 6-23 capsule by [facility]y of capsule 00:00: mouth 3 [place] 00 (three) Medical times Branch daily as needed for Cough for up to 20 doses. ondansetron 2021-0 Yes [id number] 4mg Take 1 [facility] (ZOFRAN 6-23 tablet by ity of ODT) 4 mg 00:00: mouth [place] disintegrat 00 every 8 Medic al ing tablet (eight) Branch hours as needed for Nausea and Vomiting (N/V). ibuprofen 1-0 Yes [id number] 600mg Take 1 [facility] 600 mg 6-23 tablet by ity of tablet 00:00: mouth [place] 00 every 6 Medical (six) Branch hours as needed for Pain (scale 4-6). benzonatate 2021-0 Yes [id number] 200mg Take 1 [facility] 200 mg 6-23 capsule by ity of capsule 00:00: mouth 3 [place] 00 (three) Medical times Branch daily as needed for Cough for up to 20 doses. ondansetron 2021-0 Yes [id number] 4mg Take 1 [facility] (ZOFRAN 6-23 tablet by ity of ODT) 4 mg 00:00: mouth [place] disintegrat 00 every 8 Medic al ing tablet (eight) Branch hours as needed for Nausea and Vomiting (N/V). ibuprofen 1-0 Yes [id number] 600mg Take 1 [facility] 600 mg 6-23 tablet by ity of tablet 00:00: mouth [place] 00 every 6 Medical (six) Branch hours as needed for Pain (scale 4-6). benzonatate 2021-0 Yes [id number] 200mg Take 1 [facility] 200 mg 6-23 capsule by it[facility] of capsule 00:00: mouth 3 [place] 00 (three) Medical times Branch daily as needed for Cough for up to 20 doses. ondansetron 2021-0 Yes [id number] 4mg Take 1 [facility] (ZOFRAN 6-23 tablet by ity of ODT) 4 mg 00:00: mouth [place] disintegrat 00 every 8 Medic al ing tablet (eight) Branch hours as needed for Nausea and Vomiting (N/V). ibuprofen 2021-0 Yes [id number] 600mg Take 1 [facility] 600 mg 6-23 tablet by ity of tablet 00:00: mouth [place] 00 every 6 Medical (six) Branch hours as needed for Pain (scale 4-6). benzonatate 2021-0 Yes [id number] 200mg Take 1 [facility] 200 mg 6-23 capsule by [facility] of capsule 00:00: mouth 3 [place] 00 (three) Medical times Branch daily as needed for Cough for up to 20 doses. ondansetron 2021-0 Yes [id number] 4mg Take 1 [facility] (ZOFRAN 6-23 tablet by ity of ODT) 4 mg 00:00: mouth [place] disintegrat 00 every 8 Medic al ing tablet (eight) Branch hours as needed for Nausea and Vomiting (N/V). ibuprofen 1-0 Yes [id number] 600mg Take 1 [facility] 600 mg 6-23 tablet by ity of tablet 00:00: mouth [place] 00 every 6 Medical (six) Branch hours as needed for Pain (scale 4-6). benzonatate 2021-0 Yes [id number] 200mg Take 1 [facility] 200 mg 6-23 capsule by ity of capsule 00:00: mouth 3 [place] 00 (three) Medical times Branch daily as needed for Cough for up to 20 doses. ondansetron 1-0 Yes [id number] 4mg Take 1 [facility] (ZOFRAN 6-23 tablet by ity of ODT) 4 mg 00:00: mouth [place] disintegrat 00 every 8 Medic al ing tablet (eight) Branch hours as needed for Nausea and Vomiting (N/V). ibuprofen 1-0 Yes [id number] 600mg Take 1 [facility] 600 mg 6-23 tablet by ity of tablet 00:00: mouth [place] 00 every 6 Medical (six) Branch hours as needed for Pain (scale 4-6). benzonatate 2021-0 Yes [id number] 200mg Take 1 [facility] 200 mg 6-23 capsule by ity of capsule 00:00: mouth 3 [place] 00 (three) Medical times Branch daily as needed for Cough for up to 20 doses. ondansetron 1-0 Yes [id number] 4mg Take 1 [facility] (ZOFRAN 6-23 tablet by ity of ODT) 4 mg 00:00: mouth [place] disintegrat 00 every 8 Medic al ing tablet (eight) Branch hours as needed for Nausea and Vomiting (N/V). ibuprofen 2021-0 Yes [id number] 600mg Take 1 [facility] 600 mg 6-23 tablet by ity of tablet 00:00: mouth [place] 00 every 6 Medical (six) Branch hours as needed for Pain (scale 4-6). benzonatate 2021-0 Yes [id number] 200mg Take 1 [facility] 200 mg 6-23 capsule by ity of capsule 00:00: mouth (three) Medical times Branch daily as needed for Cough for up to 20 doses. ondansetron 2021-0 Yes [id number] 4mg Take 1 [facility] (ZOFRAN 6-23 tablet by ity of ODT) 4 mg 00:00: mouth [place] disintegrat 00 every 8 Medic al ing tablet (eight) Branch hours as needed for Nausea and Vomiting (N/V). ibuprofen 2020-0 Yes [id number] 600mg Take 1 [facility] 600 mg 6-23 tablet by ity of tablet 00:00: mouth [place] 00 every 6 Medical (six) Branch hours as needed for Pain (scale 4-6). benzonatate 2020-0 Yes [id number] 200mg Take 1 [facility] 200 mg 6-23 capsule by ity of capsule 00:00: mouth (three) Medical times Branch daily as needed for Cough for up to 20 doses. ondansetron 2020-0 Yes [id number] 4mg Take 1 [facility] (ZOFRAN 6-23 tablet by ity of ODT) 4 mg 00:00: mouth [place] disintegrat 00 every 8 Medic al ing tablet (eight) Branch hours as needed for Nausea and Vomiting (N/V). benzonatate 2020-0 Yes [id number] 200mg Take 1 [facility] 200 mg 6-23 capsule by ity of capsule 00:00: mouth (three) Medical times Branch daily as needed for Cough for up to 20 doses. benzonatate 1-0 Yes [id number] 200mg Take 1 [facility] 200 mg 6-23 capsule by ity of capsule 00:00: mouth (three) Medical times Branch daily as needed for Cough for up to 20 doses. benzonatate 2020-0 Yes [id number] 200mg Take 1 [facility] 200 mg 6-23 capsule by ity of capsule 00:00: mouth (three) Medical times Branch daily as needed for Cough for up to 20 doses. benzonatate 2021-0 Yes [id number] 200mg Take 1 [facility] 200 mg 6-23 capsule by ity of capsule 00:00: mouth (three) Medical times Branch daily as needed for Cough for up to 20 doses. benzonatate 2021-0 Yes [id number] 200mg Take 1 [facility] 200 mg 6-23 capsule by ity of capsule 00:00: mouth 3 (three) Medical times Branch daily as needed for Cough for up to 20 doses. benzonatate 2020-0 Yes [id number] 200mg Take 1 [facility] 200 mg 6-23 capsule by ity of capsule 00:00: mouth 3 (three) Medical times Branch daily as needed for Cough for up to 20 doses. benzonatate 2020-0 Yes [id number] 200mg Take 1 [facility] 200 mg 6-23 capsule by ity of capsule 00:00: mouth (three) Medical times Branch daily as needed for Cough for up to 20 doses. benzonatate 2020-0 Yes [id number] 200mg Take 1 [facility] 200 mg 6-23 capsule by ity of capsule 00:00: mouth (three) Medical times Branch daily as needed for Cough for up to 20 doses. benzonatate 2020-0 Yes [id number] 200mg Take 1 [facility] 200 mg 6-23 capsule by ity of capsule 00:00: mouth (three) Medical times Branch daily as needed for Cough for up to 20 doses. benzonatate 2020-0 Yes [id number] 200mg Take 1 [facility] 200 mg 6-23 capsule by ity of capsule 00:00: mouth (three) Medical times Branch daily as needed for Cough for up to 20 doses. benzonatate 2020-0 Yes [id number] 200mg Take 1 [facility] 200 mg 6-23 capsule by ity of capsule 00:00: mouth (three) Medical times Branch daily as needed for Cough for up to 20 doses. benzonatate 2020-0 2020- No [id number] 200mg Take 1 [facility] 200 mg 6-23 08-26 capsule by ity of capsule 00:00: 00:00 mouth 3 00 : (three) Medical times Branch daily as needed for Cough for up to 20 doses. benzonatate 2020-0 202- No [id number] 200mg Take 1 [facility] 200 mg 6-23 08-26 capsule by ity of capsule 00:00: 00:00 mouth 3 00 : (three) Medical times Branch daily as needed for Cough for up to 20 doses. benzonatate 2020-0 2021- No [id number] 200mg Take 1 [facility] 200 mg 6-23 08-26 capsule by ity of capsule 00:00: 00:00 mouth 3 [place] 00 :00 (three) Medical times Branch daily as needed for Cough for up to 20 doses. ibuprofen 2020- No [id number] 600mg Take 1 [facility] 600 mg 08-2930 tablet by ity of tablet 00:00: 00:00 mouth [place] 00 :00 every 6 Medical (six) Branch hours as needed for Pain (scale 4-6). ondansetron 2020- No [id number] 4mg Take 1 [facility] (ZOFRAN 08-2930 tablet [...] ity of 1,000 mg in 03:45: 03:13 [place], [place] NaCl 0.9% 00 :00 ONCE, 1 Medical (NS) 50 mL dose, [facility] ch MINI-BAG 05/13/20 at 2145, 50 mL
Reas on for Anti-Infec tive: Documented Infection< br>Documen con Infection Site: Urine
D uration of Therapy: Other (see Comments) NaCl 0.9% 2020- No 1000mL at 999 Uni vers (NS) bolus 05-14-08 mL/hr, ity of infusion 02:15: 02:38 1,000 mL, [place] as 1,000 mL 00 :00 IV Medical Infusion, Branch ONCE, 1 dose, [place] 05/13/20 at 2015, STAT ketorolac 2020- No 30mg 30 mg, Unive rs (TORADOL) 05-14 03-08 Slow IV ity of injection 01:30: 01:28 [place], [place] 30 mg 00 :00 ONCE, 1 Medical dose, [place] [facility] 05/13/20 at 1930, SH[facility] PAZ ibuprofen 2020-0 Yes [id number] 600mg Take 1 [facility] n[facility] 600 mg 3-07 tablet by ity of tablet 00:00: mouth [place] 00 every 6 Medical (six) Branch hours as needed for Pain (scale 4-6). ondansetron 2020-0 Yes [id number] 4mg Take 1 [facility] (ZOFRAN 3-07 tablet by ity of ODT) 4 mg 00:00: mouth [place] disintegrat 00 every 8 Medic al ing tablet (eight) Branch hours as needed for Nausea and Vomiting (N/V). ibuprofen 2020-0 Yes [id number] 600mg Take 1 [facility] n[facility] 600 mg 3-07 tablet by ity of tablet 00:00: mouth [place] 00 every 6 Medical (six) Branch hours as needed for Pain (scale 4-6). ondansetron 2020-0 Yes [id number] 4mg Take 1 [facility] (ZOFRAN 3-07 tablet by ity of ODT) 4 mg 00:00: mouth [place] disintegrat 00 every 8 Medic al ing tablet (eight) Branch hours as needed for Nausea and Vomiting (N/V). ibuprofen 2020-0 Yes [id number] 600mg Take 1 [facility] nivers 600 mg 3-07 tablet by ity of tablet 00:00: mouth [place] 00 every 6 Medical (six) Branch hours as needed for Pain (scale 4-6). ondansetron 2020-0 Yes [id number] 4mg Take 1 [facility] (ZOFRAN 3-07 tablet by ity of ODT) 4 mg 00:00: mouth [place] disintegrat 00 every 8 Medic al ing tablet (eight) Branch hours as needed for Nausea and Vomiting (N/V). ibuprofen 2020-0 Yes [id number] 600mg Take 1 [facility] nivers 600 mg 3-07 tablet by ity of tablet 00:00: mouth [place] 00 every 6 Medical (six) Branch hours as needed for Pain (scale 4-6). ondansetron 202-0 Yes [id number] 4mg Take 1 [facility] (ZOFRAN 3-07 tablet by ity of ODT) 4 mg 00:00: mouth [place] disintegrat 00 every 8 Medic al ing tablet (eight) Branch hours as needed for Nausea and Vomiting (N/V). ibuprofen 2021-0 Yes [id number] 600mg Take 1 U nivers 600 mg 3-07 tablet by ity of tablet 00:00: mouth [place] 00 every 6 Medical (six) Branch hours as needed for Pain (scale 4-6). ondansetron 202-0 Yes [id number] 4mg Take 1 [facility] (ZOFRAN 3-07 tablet by ity of ODT) 4 mg 00:00: mouth [place] disintegrat 00 every 8 Medic al ing tablet (eight) Branch hours as needed for Nausea and Vomiting (N/V). ibuprofen 2020-0 Yes [id number] 600mg Take 1 U nivers 600 mg 3-07 tablet by ity of tablet 00:00: mouth [place] 00 every 6 Medical (six) Branch hours as needed for Pain (scale 4-6). ondansetron 2020-0 Yes [id number] 4mg Take 1 [facility] (ZOFRAN 3-07 tablet by ity of ODT) 4 mg 00:00: mouth [place] disintegrat 00 every 8 Medic al ing tablet (eight) Branch hours as needed for Nausea and Vomiting (N/V). ibuprofen 2020-0 Yes [id number] 600mg Take 1 [facility] nivers 600 mg 3-07 tablet by ity of tablet 00:00: mouth [place] 00 every 6 Medical (six) Branch hours as needed for Pain (scale 4-6). ondansetron 2020-0 Yes [id number] 4mg Take 1 [facility] (ZOFRAN 3-07 tablet by ity of ODT) 4 mg 00:00: mouth [place] disintegrat 00 every 8 Medic al ing tablet (eight) Branch hours as needed for Nausea and Vomiting (N/V). ibuprofen 2021-0 Yes [id number] 600mg Take 1 U nivers 600 mg 3-07 tablet by ity of tablet 00:00: mouth [place] 00 every 6 Medical (six) Branch hours as needed for Pain (scale 4-6). ondansetron 2021-0 Yes [id number] 4mg Take 1 [facility] (ZOFRAN 3-07 tablet by ity of ODT) 4 mg 00:00: mouth [place] disintegrat 00 every 8 Medic al ing tablet (eight) Branch hours as needed for Nausea and Vomiting (N/V). ibuprofen 2021-0 Yes [id number] 600mg Take 1 U nivers 600 mg 3-07 tablet by ity of tablet 00:00: mouth [place] 00 every 6 Medical (six) Branch hours as needed for Pain (scale 4-6). ondansetron 2020-0 Yes [id number] 4mg Take 1 [facility] (ZOFRAN 3-07 tablet by ity of ODT) 4 mg 00:00: mouth [place] disintegrat 00 every 8 Medic al ing tablet (eight) Branch hours as needed for Nausea and Vomiting (N/V). ibuprofen 2020-0 Yes [id number] 600mg Take 1 U nivers 600 mg 3-07 tablet by ity of tablet 00:00: mouth [place] 00 every 6 Medical (six) Branch hours as needed for Pain (scale 4-6). ondansetron 2020-0 Yes [id number] 4mg Take 1 [facility] (ZOFRAN 3-07 tablet by ity of ODT) 4 mg 00:00: mouth [place] disintegrat 00 every 8 Medic al ing tablet (eight) Branch hours as needed for Nausea and Vomiting (N/V). ibuprofen 2020-0 Yes [id number] 600mg Take 1 U nivers 600 mg 3-07 tablet by ity of tablet 00:00: mouth [place] 00 every 6 Medical (six) Branch hours as needed for Pain (scale 4-6). ondansetron 2020-0 Yes [id number] 4mg Take 1 [facility] (ZOFRAN 3-07 tablet by ity of ODT) 4 mg 00:00: mouth [place] disintegrat 00 every 8 Medic al ing tablet (eight) Branch hours as needed for Nausea and Vomiting (N/V). ibuprofen 2020-0 Yes [id number] 600mg Take 1 U nivers 600 mg 3-07 tablet by ity of tablet 00:00: mouth [place] 00 every 6 Medical (six) Branch hours as needed for Pain (scale 4-6). ondansetron 2021-0 Yes [id number] 4mg Take 1 [facility] (ZOFRAN 3-07 tablet by ity of ODT) 4 mg 00:00: mouth [place] disintegrat 00 every 8 Medic al ing tablet (eight) Branch hours as needed for Nausea and Vomiting (N/V). ibuprofen 2020-0 Yes [id number] 600mg Take 1 U nivers 600 mg 3-07 tablet by ity of tablet 00:00: mouth [place] 00 every 6 Medical (six) Branch hours as needed for Pain (scale 4-6). ondansetron 2020-0 Yes [id number] 4mg Take 1 [facility] (ZOFRAN 3-07 tablet by ity of ODT) 4 mg 00:00: mouth [place] disintegrat 00 every 8 Medic al ing tablet (eight) Branch hours as needed for Nausea and Vomiting (N/V). ibuprofen 2020-0 Yes [id number] 600mg Take 1 U nivers 600 mg 3-07 tablet by ity of tablet 00:00: mouth [place] 00 every 6 Medical (six) Branch hours as needed for Pain (scale 4-6). ondansetron 2020-0 Yes [id number] 4mg Take 1 [facility] (ZOFRAN 3-07 tablet by ity of ODT) 4 mg 00:00: mouth [place] disintegrat 00 every 8 Medic al ing tablet (eight) Branch hours as needed for Nausea and Vomiting (N/V). ibuprofen 2020-0 Yes [id number] 600mg Take 1 U nivers 600 mg 3-07 tablet by ity of tablet 00:00: mouth [place] 00 every 6 Medical (six) Branch hours as needed for Pain (scale 4-6). ondansetron 2020-0 Yes [id number] 4mg Take 1 [facility] (ZOFRAN 3-07 tablet by ity of ODT) 4 mg 00:00: mouth [place] disintegrat 00 every 8 Medic al ing tablet (eight) Branch hours as needed for Nausea and Vomiting (N/V). ibuprofen 2020-0 Yes [id number] 600mg Take 1 U nivers 600 mg 3-07 tablet by ity of tablet 00:00: mouth [place] 00 every 6 Medical (six) Branch hours as needed for Pain (scale 4-6). ondansetron 2020-0 Yes [id number] 4mg Take 1 [facility] (ZOFRAN 3-07 tablet by ity of ODT) 4 mg 00:00: mouth [place] disintegrat 00 every 8 Medic al ing tablet (eight) Branch hours as needed for Nausea and Vomiting (N/V). ibuprofen 2020-0 Yes [id number] 600mg Take 1 U nivers 600 mg 3-07 tablet by ity of tablet 00:00: mouth [place] 00 every 6 Medical (six) Branch hours as needed for Pain (scale 4-6). ibuprofen 2021-0 Yes [id number] 600mg Take 1 U nivers 600 mg 3-07 tablet by ity of tablet 00:00: mouth [place] 00 every 6 Medical (six) Branch hours as needed for Pain (scale 4-6). ibuprofen 2021-0 Yes [id number] 600mg Take 1 U nivers 600 mg 3-07 tablet by ity of tablet 00:00: mouth [place] 00 every 6 Medical (six) Branch hours as needed for Pain (scale 4-6). ibuprofen 202-0 Yes [id number] 600mg Take 1 U nivers 600 mg 3-07 tablet by ity of tablet 00:00: mouth [place] 00 every 6 Medical (six) Branch hours as needed for Pain (scale 4-6). ibuprofen 2021-0 Yes [id number] 600mg Take 1 U nivers 600 mg 3-07 tablet by ity of tablet 00:00: mouth [place] 00 every 6 Medical (six) Branch hours as needed for Pain (scale 4-6). ibuprofen 2020-0 Yes [id number] 600mg Take 1 U nivers 600 mg 3-07 tablet by ity of tablet 00:00: mouth [place] 00 every 6 Medical (six) Branch hours as needed for Pain (scale 4-6). ibuprofen 2020-0 Yes [id number] 600mg Take 1 U nivers 600 mg 3-07 tablet by ity of tablet 00:00: mouth [place] 00 every 6 Medical (six) Branch hours as needed for Pain (scale 4-6). ibuprofen 2021-0 Yes [id number] 600mg Take 1 U nivers 600 mg 3-07 tablet by ity of tablet 00:00: mouth [place] 00 every 6 Medical (six) Branch hours as needed for Pain (scale 4-6). ibuprofen 2021-0 Yes [id number] 600mg Take 1 U nivers 600 mg 3-07 tablet by ity of tablet 00:00: mouth [place] 00 every 6 Medical (six) Branch hours as needed for Pain (scale 4-6). ibuprofen 2021-0 Yes [id number] 600mg Take 1 U nivers 600 mg 3-07 tablet by ity of tablet 00:00: mouth [place] 00 every 6 Medical (six) Branch hours as needed for Pain (scale 4-6). ibuprofen 2021-0 Yes [id number] 600mg Take 1 U nivers 600 mg 3-07 tablet by ity of tablet 00:00: mouth [place] 00 every 6 Medical (six) Branch hours as needed for Pain (scale 4-6). ibuprofen 2020- No [id number] 600mg Take 1 [facility] 600 mg 05-13 tablet by ity of tablet 00:00: 00:00 mouth [place] 00 :00 every 6 Medical (six) Branch hours as needed for Pain (scale 4-6). ibuprofen 2020- No [id number] 600mg Take 1 [facility] 600 mg 05-13 tablet by ity of tablet 00:00: 00:00 mouth [place] 00 :00 every 6 Medical (six) Branch hours as needed for Pain (scale 4-6). ibuprofen 2020- No [id number] 600mg Take 1 [facility] 600 mg 05-13 tablet by ity of tablet 00:00: 00:00 mouth [place] 00 :00 every 6 Medical (six) Branch hours as needed for Pain (scale 4-6). ondansetron 2020- No [id number] 4mg Take 1 [facility] (ZOFRAN 05-13 tablet by ity of ODT) 4 mg 00:00: 00:00 mouth [place] disintegrat 00 :00 every 8 Medic al ing tablet (eight) Branch hours as needed for Nausea and Vomiting (N/V). cephALEXin 2020- No [id number] 500mg Take 1 [facility] (KEFLEX) 05-13-18 capsule by ity of 500 mg 00:00: 04:59 mouth 3 [place] capsule 00 :00 (three) Medical times Branch daily for 10 days. metroNIDAZO 2019-03- No [id number] 500mg Take 1 [facility] LE 500 mg 03-21 tablet by ity of tablet 00:00: 05:59 mouth 2 [place] 00 :00 (two) Medical times Branch daily for 7 days. metroNIDAZO 2019-03- No [id number] 500mg Take 1 [facility] LE 500 mg 03-21- tablet by ity of tablet 00:00: 05:59 mouth 2 [place] 00 :00 (two) Medical times Branch daily for 7 days. azithromyci 2019-03- No [id number] 1000mg Take 2 [facility] n 500 mg 0-14 10-16 tablets by ity of tablet 00:00: 04:59 mouth [place] 00 :00 daily for Medical 1 day. Branch azithromyci 2019-03 2020- No [id number] 1000mg Take 2 [facility] n 500 mg 0-14 10-16 tablets by ity of tablet 00:00: 04:59 mouth [place] 00 :00 daily for Medical 1 day. Branch fluconazole 2020- No [id number] 150mg Take 1 [facility] (DIFLUCAN) 8-17 08-18 tablet by ity of 150 mg 00:00: 04:59 mouth [place] tablet 00 :00 now for 1 Medical dose. Branch metroNIDAZO 2020- No [id number] 500mg Take 1 [facility] LE (FLAGYL) 7-22 07-30 tablet by it y of 500 mg 00:00: 04:59 mouth 2 [place] tablet 00 :00 (two) Medical times [place] daily for 7 days. topiramate 2020-0 Yes 100mg Take 100 [facility] [place] (TOPAMAX) 7-21 mg by ity of 100 mg 19:33: mouth. [address] topiramate 2020-0 Yes 100mg Take 100 [facility] [place] (TOPAMAX) 7-21 mg by ity of 100 mg 19:33: mouth. [address] topiramate 2020-0 Yes 100mg Take 100 [facility] [place] (TOPAMAX) 7-21 mg by ity of 100 mg 19:33: mouth. [address] topiramate 2020-0 Yes 100mg Take 100 [facility] [place] (TOPAMAX) 7-21 mg by ity of 100 mg 19:33: mouth. [address] topiramate 2020-0 Yes 100mg Take 100 [facility] [place] (TOPAMAX) 7-21 mg by ity of 100 mg 19:33: mouth. [address] topiramate 2020-0 Yes 100mg Take 100 [facility] [place] (TOPAMAX) 7-21 mg by ity of 100 mg 19:33: mouth. [address] topiramate 2020-0 Yes 100mg Take 100 [facility] [place] (TOPAMAX) 7-21 mg by ity of 100 mg 19:33: mouth. [address] topiramate 2020-0 Yes 100mg Take 100 [facility] [place] (TOPAMAX) 7-21 mg by ity of 100 mg 19:33: mouth. [place] tablet [address] [place] [address] topiramate 2020-0 Yes 100mg Take 100 [facility] [place] (TOPAMAX) 7-21 mg by ity of 100 mg 19:33: mouth. [place] tablet [address] [place] [address] topiramate 2020-0 Yes 100mg Take 100 [facility] [place] (TOPAMAX) 7-21 mg by ity of 100 mg 19:33: mouth. [place] tablet [address] [place] [address] topiramate 2020-0 Yes 100mg Take 100 [facility] [place] (TOPAMAX) 7-21 mg by ity of 100 mg 19:33: mouth. [place] tablet [address] [place] [address] topiramate 2020-0 Yes 100mg Take 100 [facility] [place] (TOPAMAX) 7-21 mg by ity of 100 mg 19:33: mouth. [place] tablet [address] [place] [address] topiramate 2020-0 Yes 100mg Take 100 [facility] [place] (TOPAMAX) 7-21 mg by ity of 100 mg 19:33: mouth. [address] topiramate 2020-0 Yes 100mg Take 100 [facility] [place] (TOPAMAX) 7-21 mg by ity of 100 mg 19:33: mouth. [address] topiramate 2020-0 Yes 100mg Take 100 [facility] [place] (TOPAMAX) 7-21 mg by ity of 100 mg 19:33: mouth. [place] tablet [address] [place] [address] topiramate 2020-0 Yes 100mg Take 100 [facility] [place] (TOPAMAX) 7-21 mg by ity of 100 mg 19:33: mouth. [place] tablet [address] [place] [address] topiramate 2020-0 Yes 100mg Take 100 [facility] [place] (TOPAMAX) 7-21 mg by ity of 100 mg 19:33: mouth. [address] topiramate 2020-0 Yes 100mg Take 100 [facility] [place] (TOPAMAX) 7-21 mg by ity of 100 mg 19:33: mouth. [place] tablet [address] [place] [address] topiramate 2020-0 Yes 100mg Take 100 [facility] [place] (TOPAMAX) 7-21 mg by ity of 100 mg 19:33: mouth. [place] tablet [address] [place] [address] topiramate 2020-0 Yes 100mg Take 100 [facility] [place] (TOPAMAX) 7-21 mg by ity of 100 mg 19:33: mouth. [place] tablet [address] [place] [address] topiramate 2020-0 Yes 100mg Take 100 [facility] [place] (TOPAMAX) 7-21 mg by ity of 100 mg 19:33: mouth. [address] topiramate 2020-0 Yes 100mg Take 100 [facility] [place] (TOPAMAX) 7-21 mg by ity of 100 mg 19:33: mouth. [address] topiramate 2020-0 Yes 100mg Take 100 [facility] [place] (TOPAMAX) 7-21 mg by ity of 100 mg 19:33: mouth. [address] topiramate 2020-0 Yes 100mg Take 100 [facility] [place] (TOPAMAX) 7-21 mg by ity of 100 mg 19:33: mouth. [address] topiramate 2020-0 Yes 100mg Take 100 [facility] [place] (TOPAMAX) 7-21 mg by ity of 100 mg 19:33: mouth. [address] topiramate 2020-0 Yes 100mg Take 100 [facility] [place] (TOPAMAX) 7-21 mg by ity of 100 mg 19:33: mouth. [address] topiramate 2020-0 Yes 100mg Take 100 [facility] [place] (TOPAMAX) 7-21 mg by ity of 100 mg 19:33: mouth. [address] topiramate 2020-0 Yes 100mg Take 100 [facility] [place] (TOPAMAX) 7-21 mg by ity of 100 mg 19:33: mouth. [address] topiramate 2020-0 Yes 100mg Take 100 [facility] [place] (TOPAMAX) 7-21 mg by ity of 100 mg 19:33: mouth. [address] topiramate 2020-0 Yes 100mg Take 100 [facility] [place] (TOPAMAX) 7-21 mg by ity of 100 mg 19:33: mouth. [address] topiramate 2020-0 Yes 100mg Take 100 [facility] [place] (TOPAMAX) 7-21 mg by ity of 100 mg 19:33: mouth. [address] topiramate 2020-0 Yes 100mg Take 100 [facility] [place] (TOPAMAX) 7-21 mg by ity of 100 mg 19:33: mouth. [address] topiramate 2020-0 Yes 100mg Take 100 [...] tablet 15 Medical Branch montelukast 2020-0 Yes [id number] 10mg Take 1 [facility] 10 mg 6-11 tablet by ity of tablet 00:00: mouth [place] 00 daily. Medical Branch loratadine 2020-0 Yes [id number] 10mg Take 1 [facility] 10 mg 6-11 tablet by ity of tablet 00:00: mouth [place] 00 daily. Medical Branch benzonatate 2020-0 Yes [id number] 100mg Take 1 [facility] 100 mg 6-11 capsule by ity of capsule 00:00: mouth 3 [place] 00 (three) Medical times Branch daily as needed for Cough. montelukast 2020-0 Yes [id number] 10mg Take 1 [facility] 10 mg 6-11 tablet by ity of tablet 00:00: mouth [place] 00 daily. Medical Branch loratadine 2020-0 Yes [id number] 10mg Take 1 [facility] nivers 10 mg 6-11 tablet by ity of tablet 00:00: mouth [place] 00 daily. Medical Branch benzonatate 2020-0 Yes [id number] 100mg Take 1 [facility] 100 mg 6-11 capsule by ity of capsule 00:00: mouth 3 [place] 00 (three) Medical times Branch daily as needed for Cough. montelukast 2020-0 2020- No [id number] 10mg Take 1 [facility] 10 mg 6-11 07-21 tablet by ity of tablet 00:00: 00:00 mouth [place] 00 :00 daily. Medical Branch loratadine 2020-0 2020- No [id number] 10mg Take 1 [facility] 10 mg 6-11 07-21 tablet by ity of tablet 00:00: 00:00 mouth [place] 00 :00 daily. Medical Branch benzonatate 2020-0 2020- No [id number] 100mg Take 1 [facility] 100 mg 6-11 07-21 capsule by ity of capsule 00:00: 00:00 mouth 3 [place] 00 :00 (three) Medical times Branch daily as needed for Cough. montelukast 2020-0 2020- No [id number] 10mg Take 1 [facility] 10 mg 08-17 tablet by ity of tablet 00:00: 00:00 mouth [place] 00 :00 daily. Medical Branch loratadine 2019- No [id number] 10mg Take 1 [facility] 10 mg 08-17 tablet by ity of tablet 00:00: 00:00 mouth [place] 00 :00 daily. Medical Branch benzonatate 2019- No [id number] 100mg Take 1 [facility] 100 mg 08-17 capsule by ity of capsule 00:00: 00:00 mouth 3 [place] 00 :00 (three) Medical times [place] daily as needed for Cough. QUEtiapine 2020- No TAKE 1 Univ ers 25 mg 08-12 TABLET BY ity of tablet 00:00: 00:[place] [facility] BEDTIME Branch QUEtiapine 2019- No TAKE 1 [facility] ers 25 mg 08-12 TABLET BY ity of tablet 00:00: 00:[place] [facility] iohexol 2019- No 120mL 120 mL, Unive rs (OMNIPAQUE 07-28 Intravenou it y of 350 04:15: 04:15 s, ONCE, 1 [place] BULK-150 00 :00 dose, [facility] mL) 07/28/19 at [place] injection 2315, 120 mL Routine guaiFENesin 2019- No 200mg 200 mg, U nivers 100 mg/5 mL 07-27 Oral, ity of solution 23:30: 00:27 ONCE, 1 [place] 200 mg 00 :00 dose, [facility] 07/28/19 at Branch 1845, [place] albuterol 2020- No 2{puff} 2 Puff, U nivers (VENTOLIN) 07-27 Inhalation it y of inhaler 2 23:30: 00:28 , [place] 1 [place] P[place] :[place] dose, [facility] 07/28/19 at [place] [address], SHAY[place]
Is this order for a patient with suspected or confirmed COVID-19 infection? Yes dextrometho 2019-0 Yes [id number] 10mL Take 10 mL Univers rphan-guaif 5-21 by mouth ity of enesin 00:00: every 8 [place] 10-100 mg/5 00 (eight) Medic al mL solution hours as Bran ch needed for Cough. albuterol 2020-0 Yes [id number] 2{puff} Inhale 2 [facility] 90 5-21 Puffs ity of mcg/actuati 00:00: every 4 [place] as on inhaler 00 (four) Medical hours as Branch needed for Wheezing, Shortness of Breath or Chest tightness. dextrometho 2020-0 Yes [id number] 10mL Take 10 mL [facility] rphan-guaif 5-21 by mouth ity of enesin 00:00: every 8 [place] 10-100 mg/5 00 (eight) Medic al mL solution hours as Bran ch needed for Cough. albuterol 2019-0 Yes [id number] 2{puff} Inhale 2 [facility] 90 5-21 Puffs ity of mcg/actuati 00:00: every 4 [place] on inhaler 00 (four) Medical hours as Branch needed for Wheezing, Shortness of Breath or Chest tightness. dextrometho 2019-0 Yes [id number] 10mL Take 10 mL [facility] rphan-guaif 5-21 by mouth ity of enesin 00:00: every 8 [place] 10-100 mg/5 00 (eight) Medic al mL solution hours as Bran ch needed for Cough. albuterol 2019-0 Yes [id number] 2{puff} Inhale 2 [facility] 90 5-21 Puffs ity of mcg/actuati 00:00: every 4 [place] on inhaler 00 (four) Medical hours as Branch needed for Wheezing, Shortness of Breath or Chest tightness. dextrometho 2020-0 Yes [id number] 10mL Take 10 mL [facility] rphan-guaif 5-21 by mouth ity of enesin 00:00: every 8 [place] 10-100 mg/5 00 (eight) Medic al mL solution hours as Bran ch needed for Cough. albuterol 2020-0 Yes [id number] 2{puff} Inhale 2 [facility] 90 5-21 Puffs ity of mcg/actuati 00:00: every 4 [place] on inhaler 00 (four) Medical hours as Branch needed for Wheezing, Shortness of Breath or Chest tightness. dextrometho 2020-0 Yes [id number] 10mL Take 10 mL [facility] rphan-guaif 5-21 by mouth ity of enesin 00:00: every 8 [place] 10-100 mg/5 00 (eight) Medic al mL solution hours as Bran ch needed for Cough. albuterol Yes [id number] 2{puff} Inhale 2 [facility] 90 5-21 Puffs ity of mcg/actuati 00:00: every 4 [place] on inhaler 00 (four) Medical hours as Branch needed for Wheezing, Shortness of Breath or Chest tightness. dextrometho 2019-2019- No [id number] 10mL Take 10 mL [facility] rphan-guaif 5-21 07-21 by mouth ity of enesin 00:00: 00:00 every 8 [place] 10-100 mg/5 00 :00 (eight) Medic al mL solution hours as Bran ch needed for Cough. albuterol 2020- No [id number] 2{puff} Inhale 2 [facility] 90 5-21 07-21 Puffs ity of mcg/actuati 00:00: 00:00 every 4 [place] inhaler 00 :00 (four) Medical hours as Branch needed for Wheezing, Shortness of Breath or Chest tightness. dextrometho 2019- 2020- No [id number] 10mL Take 10 mL [facility] rphan-guaif 5-21 07-21 by mouth ity of enesin 00:00: 00:00 every 8 [place] 10-100 mg/5 00 :00 (eight) Medic al mL solution hours as Bran ch needed for Cough. albuterol 2020- No [id number] 2{puff} Inhale 2 [facility] 90 5-21 07-21 Puffs ity of mcg/actuati 00:00: 00:00 every 4 [place] inhaler 00 :00 (four) Medical hours as Branch needed for Wheezing, Shortness of Breath or Chest tightness. predniSONE 2019- 2020- No [id number] 30mg Take 3 [facility] 10 mg 5-21 05-26 tablets by ity of tablet 00:00: 04:59 mouth [place] 00 :00 daily for Medical 4 days. Branch predniSONE 2019- 2020- No [id number] 30mg Take 3 [facility] 10 mg 5-21 05-26 tablets by ity of tablet 00:00: 04:59 mouth [place] 00 :00 daily for Medical 4 days. Branch levonorgest 2019- Yes [id number] 1{tbl} Take 1 [facility] rel-ethinyl 5-11 tablet by ity of estradiol 00:00: mouth [place] (SRONYX) 00 daily. Medical 0.1-20 Branch mg-mcg per tablet levonorgest 2020-0 Yes [id number] 1{tbl} Take 1 [facility] rel-ethinyl 5-11 tablet by ity of estradiol 00:00: mouth [place] (SRONYX) 00 daily. Medical 0.1-20 Branch mg-mcg per tablet levonorgest 2020-0 Yes [id number] 1{tbl} Take 1 [facility] rel-ethinyl 5-11 tablet by ity of estradiol 00:00: mouth [place] (SRONYX) 00 daily. Medical 0.1-20 Branch mg-mcg per tablet levonorgest 2020-0 Yes [id number] 1{tbl} Take 1 [facility] rel-ethinyl 5-11 tablet by ity of estradiol 00:00: mouth [place] (SRONYX) 00 daily. Medical 0.1-20 Branch mg-mcg per tablet levonorgest 2020-0 Yes [id number] 1{tbl} Take 1 [facility] rel-ethinyl 5-11 tablet by ity of estradiol 00:00: mouth [place] (SRONYX) 00 daily. Medical 0.1-20 Branch mg-mcg per tablet levonorgest 2020-0 Yes [id number] 1{tbl} Take 1 [facility] rel-ethinyl 5-11 tablet by ity of estradiol 00:00: mouth [place] (SRONYX) 00 daily. Medical 0.1-20 Branch mg-mcg per tablet levonorgest 2020-0 2020- No [id number] 1{tbl} Take 1 [facility] rel-ethinyl 5-11 07-21 tablet by it y of estradiol 00:00: 00:00 mouth [place] (SRONYX) 00 :00 daily. Medical 0.1-20 Branch mg-mcg per tablet levonorgest 2020-0 2020- No [id number] 1{tbl} Take 1 [facility] rel-ethinyl 5-11 07-21 [...] [place] 30 mg 00 :00 1 dose, [facility] 06/26/19 at 1930, SHAYNA
Fa culty member approving Restricted medication : LORY PIMENTEL I naproxen 2020-0 Yes [id number] 500mg Take 1 [facility] [place] (NAPROSYN) 4-19 tablet by ity of 500 mg 00:00: mouth 2 [place] tablet 00 (two) Medical times Branch daily with meals. naproxen 2020-0 Yes [id number] 500mg Take 1 [facility] [place] (NAPROSYN) 4-19 tablet by ity of 500 mg 00:00: mouth 2 [place] tablet 00 (two) Medical times Branch daily with meals. naproxen 2020-0 Yes [id number] 500mg Take 1 [facility] [place] (NAPROSYN) 4-19 tablet by ity of 500 mg 00:00: mouth 2 [place] tablet 00 (two) Medical times Branch daily with meals. naproxen 2020-0 Yes [id number] 500mg Take 1 Un [place] (NAPROSYN) 4-19 tablet by ity of 500 mg 00:00: mouth 2 [place] tablet 00 (two) Medical times Branch daily with meals. naproxen 2020-0 Yes [id number] 500mg Take 1 [facility] [place] (NAPROSYN) 4-19 tablet by ity of 500 mg 00:00: mouth 2 [place] tablet 00 (two) Medical times Branch daily with meals. naproxen 2020-0 Yes [id number] 500mg Take 1 Un [place] (NAPROSYN) 4-19 tablet by ity of 500 mg 00:00: mouth 2 [place] tablet 00 (two) Medical times Branch daily with meals. naproxen 2019-0 Yes [id number] 500mg Take 1 Un [place] (NAPROSYN) 4-19 tablet by ity of 500 mg 00:00: mouth 2 [place] tablet 00 (two) Medical times Branch daily with meals. naproxen 2020- No [id number] 500mg Take 1 U nivers (NAPROSYN) 4-19 07-21 tablet by ity of 500 mg 00:00: 00:00 mouth 2 [place] tablet 00 :00 (two) Medical times Branch daily with meals. naproxen 2020- No [id number] 500mg Take 1 U nivers (NAPROSYN) 4-19 07-21 tablet by ity of 500 mg 00:00: 00:00 mouth 2 [place] tablet 00 :00 (two) Medical times Branch daily with meals. cephALEXin 2020- No [id number] 500mg Take 1 Univers (KEFLEX) 4-19 04-30 capsule by ity of 500 mg 00:00: 04:59 mouth 2 [place] capsule 00 :00 (two) Medical times Branch daily for 10 days. azithromyci 2020- No [id number] 1000mg Take 2 Univers n 3-12 03-13 tablets by ity of (ZITHROMAX) 00:00: 04:59 mouth once [place] 500 mg 00 :00 now for 1 Medical tablet dose. Branch Nitrofurant 2020- No [id number] 100mg Take 1 [facility] oin&Nit. 3-10 03-18 capsule by ity of Macrocryst 00:00: 04:59 mouth 2 [place] as (MACROBID) 00 :00 (two) Medical 100 mg times Branch capsule daily for 7 days. Nitrofurant 2020- No [id number] 100mg Take 1 [facility] oin&Nit. 3-10 03-18 capsule by ity of Macrocryst 00:00: 04:59 mouth 2 [place] as (MACROBID) 00 :00 (two) Medical 100 mg times Branch capsule daily for 7 days. Nitrofurant 2020-0 2020- No [id number] 100mg Take 1 [facility] oin&Nit. 3-10 -18 capsule by ity of Macrocryst 00:00: 04:59 mouth 2 [place] as (MACROBID) 00 :00 (two) Medical 100 mg times Branch capsule daily for 7 days. Nitrofurant 2020-0 2020- No [id number] 100mg Take 1 [facility] oin&Nit. 3-10 -18 [...] at Branch 1415, Routine levETIRAcet 2020-0 Yes [id number] 1500mg Take 2 Univers am (KEPPRA) 2-12 tablets by it y of 750 mg 00:00: mouth 2 [place] tablet 00 (two) Medical times Branch daily. levETIRAcet 2020-0 Yes [id number] 1500mg Take 2 [facility] am (KEPPRA) 2-12 tablets by it y of 750 mg 00:00: mouth 2 [place] tablet 00 (two) Medical times Branch daily. levETIRAcet 2020-0 Yes [id number] 1500mg Take 2 [facility] am (KEPPRA) 2-12 tablets by it y of 750 mg 00:00: mouth 2 [place] tablet 00 (two) Medical times Branch daily. levETIRAcet 2020-0 Yes [id number] 1500mg Take 2 [facility] am (KEPPRA) 2-12 tablets by it y of 750 mg 00:00: mouth 2 [place] tablet 00 (two) Medical times Branch daily. levETIRAcet 2020-0 Yes [id number] 1500mg Take 2 [facility] am (KEPPRA) 2-12 tablets by it y of 750 mg 00:00: mouth 2 [place] tablet 00 (two) Medical times Branch daily. levETIRAcet 2020-0 Yes [id number] 1500mg Take 2 [facility] am (KEPPRA) 2-12 tablets by it y of 750 mg 00:00: mouth 2 [place] tablet 00 (two) Medical times Branch daily. levETIRAcet 2020-0 Yes [id number] 1500mg Take 2 [facility] am (KEPPRA) 2-12 tablets by it y of 750 mg 00:00: mouth 2 [place] tablet 00 (two) Medical times Branch daily. levETIRAcet 2020-0 Yes [id number] 1500mg Take 2 [facility] am (KEPPRA) 2-12 tablets by it y of 750 mg 00:00: mouth 2 [place] tablet 00 (two) Medical times Branch daily. levETIRAcet 2020-0 Yes [id number] 1500mg Take 2 [facility] am (KEPPRA) 2-12 tablets by it y of 750 mg 00:00: mouth 2 [place] tablet 00 (two) Medical times Branch daily. levETIRAcet 2020-0 Yes [id number] 1500mg Take 2 [facility] am (KEPPRA) 2-12 tablets by it y of 750 mg 00:00: mouth 2 [place] tablet 00 (two) Medical times Branch daily. levETIRAcet 2020-0 Yes [id number] 1500mg Take 2 [facility] am (KEPPRA) 2-12 tablets by it y of 750 mg 00:00: mouth 2 [place] tablet 00 (two) Medical times Branch daily. levETIRAcet 2020-0 Yes [id number] 1500mg Take 2 [facility] am (KEPPRA) 2-12 tablets by it y of 750 mg 00:00: mouth 2 [place] tablet 00 (two) Medical times Branch daily. levETIRAcet 2020-0 Yes [id number] 1500mg Take 2 [facility] am (KEPPRA) 2-12 tablets by it y of 750 mg 00:00: mouth 2 [place] tablet 00 (two) Medical times Branch daily. levETIRAcet 2020-0 Yes [id number] 1500mg Take 2 [facility] am (KEPPRA) 2-12 tablets by it y of 750 mg 00:00: mouth 2 [place] tablet 00 (two) Medical times Branch daily. levETIRAcet 2020-0 Yes [id number] 1500mg Take 2 [facility] am (KEPPRA) 2-12 tablets by it y of 750 mg 00:00: mouth 2 [place] tablet 00 (two) Medical times Branch daily. levETIRAcet 2020-0 Yes [id number] 1500mg Take 2 [facility] am (KEPPRA) 2-12 tablets by it y of 750 mg 00:00: mouth 2 [place] tablet 00 (two) Medical times Branch daily. levETIRAcet 2020-0 Yes [id number] 1500mg Take 2 [facility] am (KEPPRA) 2-12 tablets by it y of 750 mg 00:00: mouth 2 [place] tablet 00 (two) Medical times Branch daily. levETIRAcet 2020-0 Yes [id number] 1500mg Take 2 [facility] am (KEPPRA) 2-12 tablets by it y of 750 mg 00:00: mouth 2 [place] tablet 00 (two) Medical times Branch daily. levETIRAcet 2020-0 Yes [id number] 1500mg Take 2 [facility] am (KEPPRA) 2-12 tablets by it y of 750 mg 00:00: mouth 2 [place] tablet 00 (two) Medical times Branch daily. levETIRAcet 2020-0 Yes [id number] 1500mg Take 2 [facility] am (KEPPRA) 2-12 tablets by it y of 750 mg 00:00: mouth 2 [place] tablet 00 (two) Medical times Branch daily. levETIRAcet 2020-0 Yes [id number] 1500mg Take 2 [facility] am (KEPPRA) 2-12 tablets by it y of 750 mg 00:00: mouth 2 [place] tablet 00 (two) Medical times Branch daily. levETIRAcet 2020-0 Yes [id number] 1500mg Take 2 [facility] am (KEPPRA) 2-12 tablets by it y of 750 mg 00:00: mouth 2 [place] tablet 00 (two) Medical times Branch daily. levETIRAcet 2020-0 Yes [id number] 1500mg Take 2 [facility] am (KEPPRA) 2-12 tablets by it y of 750 mg 00:00: mouth 2 [place] tablet 00 (two) Medical times Branch daily. levETIRAcet 2020-0 2020- No [id number] 1500mg Take 2 [facility] am (KEPPRA) 2-12 -21 tablets by i ty of 750 mg 00:00: 00:00 mouth 2 [place] tablet 00 :00 (two) Medical times Branch daily. levETIRAcet 2020-0 2020- No [id number] 1500mg Take 2 [facility] am (KEPPRA) 2-12 -21 tablets by i ty of 750 mg 00:00: 00:00 mouth 2 [place] tablet 00 :00 (two) Medical times Branch daily. azithromyci 2020-0 2020- No [id number] 1000mg Take 2 Univers n 500 mg 14 -16 tablets by ity of tablet 00:00: 05:59 mouth [place] 00 :00 daily for Medical 1 day. Luis goldstein 0 2020- No [id number] 1000mg Take 2 Univers n 500 mg -14 -16 tablets by ity of tablet 00:00: 05:59 mouth [place] 00 :00 daily for Medical 1 day. Luis NUVARING Yes [id number] 1{each} Insert 1 [facility] 0.12-0.015 4-15 Each into ity of mg/24 hr 00:00: vagina [place] vaginal 00 once every Medica l insert month. Branch Insert vaginally and leave in place for 3 consecutiv e weeks, then remove for 1 week. NUVARING Yes [id number] 1{each} Insert 1 [facility] 0.12-0.015 4-15 Each into ity of mg/24 hr 00:00: vagina [place] vaginal 00 once every Medica l insert month. Branch Insert vaginally and leave in place for 3 consecutiv e weeks, then remove for 1 week. NUVARING Yes [id number] 1{each} Insert 1 [facility] 0.12-0.015 4-15 Each into ity of mg/24 hr 00:00: vagina [place] vaginal 00 once every Medica l insert month. Branch Insert vaginally and leave in place for 3 consecutiv e weeks, then remove for 1 week. NUVARING Yes [id number] 1{each} Insert 1 [facility] 0.12-0.015 4-15 Each into ity of mg/24 hr 00:00: vagina [place] vaginal 00 once every Medica l insert month. Branch Insert vaginally and leave in place for 3 consecutiv e weeks, then remove for 1 week. NUVARING Yes [id number] 1{each} Insert 1 [facility] 0.12-0.015 4-15 Each into ity of mg/24 hr 00:00: vagina [place] vaginal 00 once every Medica l insert month. Branch Insert vaginally and leave in place for 3 consecutiv e weeks, then remove for 1 week. NUVARING Yes [id number] 1{each} Insert 1 [facility] 0.12-0.015 4-15 Each into ity of mg/24 hr 00:00: vagina [place] vaginal 00 once every Medica l insert month. Branch Insert vaginally and leave in place for 3 consecutiv e weeks, then remove for 1 week. NUVARING 2019- No [id number] 1{each} Insert 1 [facility] 0.12-0.015 4-15 -10 Each into ity of mg/24 hr 00:00: 00:00 vagina [place] vaginal 00 :00 once every Medica l insert month. Branch Insert vaginally and leave in place for 3 consecutiv e weeks, then remove for 1 week. NUVARING 2019- No [id number] 1{each} Insert 1 [facility] 0.12-0.015 15 -10 Each into ity of mg/24 hr 00:00: 00:00 vagina [place] vaginal 00 :00 once every Medica l insert month. Branch Insert vaginally and leave in place for 3 consecutiv e weeks, then remove for 1 week. sulfamethox 2019-0 Yes [id number] 1{tbl} Take 1 [facility] azole-trime 3-29 [id number] tablet by i ty of thoprim 00:00: mouth [place] 800-160 mg 00 every 12 Medic al per tablet (twelve) Branc h hours. traMADOL 2019-0 Yes [id number] 50mg Take 1 [facility] (ULTRAM) 50 3-29 [id number] tablet by i ty of mg tablet 00:00: mouth [place] 00 every 6 Medical (six) Branch hours as needed for Pain (scale 4-6). sulfamethox 2019-0 Yes [id number] 1{tbl} Take 1 [facility] azole-trime 3-29 [id number] tablet by i ty of thoprim 00:00: mouth [place] 800-160 mg 00 every 12 Medic al per tablet (twelve) Branc h hours. traMADOL 2019-0 Yes [id number] 50mg Take 1 [facility] (ULTRAM) 50 3-29 [id number] tablet by i ty of mg tablet 00:00: mouth [place] 00 every 6 Medical (six) Branch hours as needed for Pain (scale 4-6). sulfamethox 2019-0 Yes [id number] 1{tbl} Take 1 [facility] azole-trime 3-29 [id number] tablet by i ty of thoprim 00:00: mouth [place] 800-160 mg 00 every 12 Medic al per tablet (twelve) Branc h hours. traMADOL 2019-0 Yes [id number] 50mg Take 1 [facility] (ULTRAM) 50 3-29 [id number] tablet by i ty of mg tablet 00:00: mouth [place] 00 every 6 Medical (six) Branch hours as needed for Pain (scale 4-6). sulfamethox 2019-0 Yes [id number] 1{tbl} Take 1 [facility] azole-trime 3-29 [id number] tablet by i ty of thoprim 00:00: mouth [place] 800-160 mg 00 every 12 Medic al per tablet (twelve) Branc h hours. traMADOL 2019-0 Yes [id number] 50mg Take 1 [facility] (ULTRAM) 50 3-29 [id number] tablet by i ty of mg tablet 00:00: mouth [place] 00 every 6 Medical (six) Branch hours as needed for Pain (scale 4-6). sulfamethox 2019-0 Yes [id number] 1{tbl} Take 1 [facility] azole-trime 3-29 [id number] tablet by i ty of thoprim 00:00: mouth [place] 800-160 mg 00 every 12 Medic al per tablet (twelve) Branc h hours. traMADOL 2019-0 Yes [id number] 50mg Take 1 [facility] (ULTRAM) 50 3-29 [id number] tablet by i ty of mg tablet 00:00: mouth [place] 00 every 6 Medical (six) Branch hours as needed for Pain (scale 4-6). sulfamethox 2019-0 Yes [id number] 1{tbl} Take 1 [facility] azole-trime 3-29 [id number] tablet by i ty of thoprim 00:00: mouth [place] 800-160 mg 00 every 12 Medic al per tablet (twelve) Branc h hours. traMADOL 2019-0 Yes [id number] 50mg Take 1 [facility] (ULTRAM) 50 3-29 [id number] tablet by i ty of mg tablet 00:00: mouth [place] 00 every 6 Medical (six) Branch hours as needed for Pain (scale 4-6). sulfamethox 2019-0 2020- No [id number] 1{tbl} Take 1 [facility] azole-trime 3-29 03-10 [id number] tablet by ity of thoprim 00:00: 00:00 mouth [place] 800-160 mg 00 :00 every 12 Medic al per tablet (twelve) Branc h hours. traMADOL 2019-0 2020- No [id number] 50mg Take 1 [facility] (ULTRAM) 50 06-04 [id number] tablet by ity of mg tablet 00:00: 00:00 mouth [place] 00 :00 every 6 Medical (six) Branch hours as needed for Pain (scale 4-6). sulfamethox 2020- No [id number] 1{tbl} Take 1 [facility] azole-trime 06-04 [id number] tablet by ity of thoprim 00:00: 00:00 mouth [place] 800-160 mg 00 :00 every 12 Medic al per tablet (twelve) Branc h hours. traMADOL 2019- No [id number] 50mg Take 1 Univers (ULTRAM) 50 06-04 [id number] tablet by ity of mg tablet 00:00: 00:00 mouth [place] 00 :00 every 6 Medical (six) Branch hours as needed for Pain (scale 4-6). Immunizations Ordered Filled Immunization Date Status Comments [facility] e Immunization Name Name HPV9 2019-12-30 Completed University of 00:00: [facility] HPV9 2019-12-30 Completed University of 00:00:00 [facility] HPV9 2019-12-30 Completed University of 00:00:00 [facility] HPV9 2019-12-30 Completed University of 00:00:00 [facility] HPV9 2019-12-30 Completed University of 00:00:00 [facility] HPV9 2019-12-30 Completed University of 00:00:00 [facility] HPV9 2019-12-30 Completed University of 00:00:00 [facility] HPV9 2019-12-30 Completed University of 00:00:00 [facility] HPV9 2019-12-30 Completed University of 00:00:00 [facility] HPV9 2019-12-30 Completed University of 00:00:00 [facility] HPV9 2019-12-30 Completed University of 00:00:00 [facility] HPV9 2019-12-30 Completed University of 00:00:00 [facility] HPV9 2019-12-30 Completed University of 00:00:00 [facility] HPV9 2019-12-30 Completed University of 00:00:00 [facility] HPV9 2019-12-30 Completed University of 00:00:00 [facility] HPV9 2019-12-30 Completed University of 00:00:00 [facility] HPV9 2019-12-30 Completed University of 00:00:00 [...] Branch HPV9 2019-12-30 Completed University of 00:00:00 [place] [facility] HPV9 2019-12-30 Completed University of [...] Branch HPV9 2019-12-30 Completed University of 00:00:00 [place] [facility] HPV9 2019-12-30 Completed University of 00:00:00 [place] [facility] HPV9 2019-12-30 Completed University of 00:00:00 [place] [facility] HPV9 2019-09-27 Completed University of 00:00:00 [place] [facility] HPV9 2019-09-27 Completed University of 00:00:00 [place] [facility] HPV9 2019-09-27 Completed University of 00:00:00 [place] [facility] HPV9 2019-09-27 Completed University of 00:00:00 [place] [facility] HPV9 2019-09-27 Completed University of 00:00:00 [place] [facility] HPV9 2019-09-27 Completed University of 00:00:00 [place] [facility] HPV9 2019-09-27 Completed University of 00:00:00 [place] [facility] HPV9 2019-09-27 Completed University of 00:00:00 [place] [facility] HPV9 2019-09-27 Completed University of 00:00:00 [place] [facility] HPV9 2019-09-27 Completed University of 00:00:00 [place] [facility] HPV9 2019-09-27 Completed University of 00:00:00 [place] [facility] HPV9 2019-09-27 Completed University of 00:00:00 [place] [facility] HPV9 2019-09-27 Completed University of 00:00:00 [place] [facility] HPV9 2019-09-27 Completed University of 00:00:00 [place] [facility] HPV9 2019-09-27 Completed University of 00:00:00 [place] [facility] HPV9 2019-09-27 Completed University of 00:00:00 [place] [facility] HPV9 2019-09-27 Completed University of 00:00:00 [place] [facility] HPV9 2019-09-27 Completed University of 00:00:00 [place] [facility] HPV9 2019-09-27 Completed University of 00:00:00 [place] [facility] HPV9 2019-09-27 Completed University of 00:00:00 [place] [facility] HPV9 2019-09-27 Completed University of 00:00:00 [place] [facility] HPV9 2019-09-27 Completed University of 00:00:00 [place] [facility] HPV9 2019-09-27 Completed University of 00:00:00 [place] [facility] HPV9 2019-09-27 Completed University of 00:00:00 [place] [facility] HPV9 2019-09-27 Completed University of 00:00:00 [place] [facility] HPV9 2019-09-27 Completed University of 00:00:00 [place] [facility] HPV9 2019-09-27 Completed University of 00:00:00 [place] [facility] HPV9 2019-09-27 Completed University of 00:00:00 [place] [facility] HPV9 2019-09-27 Completed University of 00:00:00 [place] [facility] HPV9 2019-09-27 Completed University of 00:00:00 [place] [facility] HPV9 2019-09-27 Completed University of 00:00:00 [place] [facility] HPV9 2019-09-27 Completed University of 00:00:00 [place] [facility] HPV9 2019-09-27 Completed University of 00:00:00 [place] [facility] HPV9 2019-09-27 Completed University of 00:00:00 [place] [facility] HPV9 2019-09-27 Completed University of 00:00:00 [place] [facility] HPV9 2019-09-27 Completed University of 00:00:00 [place] [facility] HPV9 2019-09-27 Completed University of 00:00:00 [place] [facility] HPV9 2019-09-27 Completed University of 00:00:00 [place] [facility] HPV9 2019-09-27 Completed University of 00:00:00 [place] [facility] HPV9 2019-09-27 Completed University of 00:00:00 [place] [facility] HPV9 2019-09-27 Completed University of 00:00:00 [place] [facility] HPV9 2019-09-27 Completed University of 00:00:00 [place] [facility] HPV9 2019-09-27 Completed University of 00:00:00 [place] [facility] HPV9 2019-09-27 Completed University of 00:00:00 [place] [facility] HPV9 2019-09-27 Completed University of 00:00:00 [place] [facility] HPV9 2019-09-27 Completed University of 00:00:00 [place] [facility] HPV9 2019-09-27 Completed University of 00:00:00 [place] [facility] HPV9 2019-09-27 Completed University of 00:00:00 [place] [facility] HPV9 2019-09-27 Completed University of 00:00:00 [facility] HPV9 2019-09-27 Completed [facility] 00:00:00 [facility] HPV9 2019-09-27 Completed [facility] 00:00:00 [facility] HPV9 2019-09-27 Completed [facility] 00:00:00 [facility] HPV9 2019-09-27 Completed [facility] 00:00:00 [facility] HPV9 2019-05-17 Completed [facility] 00:00:00 [facility] HPV9 2019-05-17 Completed [facility] 00:00:00 [facility] HPV9 2019-05-17 Completed [facility] 00:00:00 [facility] HPV9 2019-05-17 Completed [facility] [...] Branch HPV9 2019-05-17 Completed [facility] 00:00:00 [facility] HPV9 2019-05-17 Completed [facility] [...] Branch HPV9 2019-05-17 Completed [facility] 00:00:00 [facility] HPV9 2019-05-17 Completed [facility] 00:00:00 [facility] TDAP (ADACEL) 2018-02-15 Completed [facility] VACCINE 00:00:00 [facility] TDAP (ADACEL) 2018-02-15 Completed [facility] VACCINE 00:00:00 [facility] TDAP (ADACEL) 2018-02-15 Completed [facility] VACCINE 00:00:00 [facility] TDAP (ADACEL) 2018-02-15 Completed [facility] VACCINE 00:00:00 [facility] TDAP (ADACEL) 2018-02-15 Completed [facility] VACCINE 00:00:00 [facility] TDAP (ADACEL) 2018-02-15 Completed [facility] VACCINE 00:00:00 [facility] TDAP (ADACEL) 2018-02-15 Completed [facility] VACCINE 00:00:00 [facility] TDAP (ADACEL) 2018-02-15 Completed [facility] VACCINE 00:00:00 [facility] TDAP (ADACEL) 2018-02-15 Completed [facility] VACCINE 00:00:00 [facility] TDAP (ADACEL) 2018-02-15 Completed [facility] VACCINE 00:00:00 [facility] TDAP (ADACEL) 2018-02-15 Completed [facility] VACCINE 00:00:00 [facility] TDAP (ADACEL) 2018-02-15 Completed [facility] VACCINE 00:00:00 [facility] TDAP (ADACEL) 2018-02-15 Completed [facility] VACCINE 00:00:00 [facility] TDAP (ADACEL) 2018-02-15 Completed [facility] VACCINE 00:00:00 [facility] TDAP (ADACEL) 2018-02-15 Completed [facility] VACCINE 00:00:00 [facility] TDAP (ADACEL) 2018-02-15 Completed [facility] VACCINE 00:00:00 [facility] TDAP (ADACEL) 2018-02-15 Completed [facility] VACCINE 00:00:00 [facility] TDAP (ADACEL) 2018-02-15 Completed [facility] VACCINE 00:00:00 [facility] TDAP (ADACEL) 2018-02-15 Completed [facility] VACCINE 00:00:00 [facility] TDAP (ADACEL) 2018-02-15 Completed [facility] VACCINE 00:00:00 [facility] TDAP (ADACEL) 2018-02-15 Completed [facility] VACCINE 00:00:00 [facility] TDAP (ADACEL) 2018-02-15 Completed [facility] VACCINE 00:00:00 [facility] TDAP (ADACEL) 2018-02-15 Completed [facility] VACCINE 00:00:00 [facility] TDAP (ADACEL) 2018-02-15 Completed [facility] VACCINE 00:00:00 [facility] TDAP (ADACEL) 2018-02-15 Completed [facility] VACCINE 00:00:00 [facility] TDAP (ADACEL) 2018-02-15 Completed [facility] VACCINE 00:00:00 [facility] TDAP (ADACEL) 2018-02-15 Completed [facility] VACCINE 00:00:00 [facility] TDAP (ADACEL) 2018-02-15 Completed [facility] VACCINE 00:00:00 [facility] TDAP (ADACEL) 2018-02-15 Completed [facility] VACCINE 00:00:00 [facility] TDAP (ADACEL) 2018-02-15 Completed [facility] VACCINE 00:00:00 [facility] TDAP (ADACEL) 2018-02-15 Completed [facility] VACCINE 00:00:00 [facility] TDAP (ADACEL) 2018-02-15 Completed [facility] VACCINE 00:00:00 [facility] TDAP (ADACEL) 2018-02-15 Completed [facility] VACCINE 00:00:00 [facility] TDAP (ADACEL) 2018-02-15 Completed [facility] VACCINE 00:00:00 [facility] TDAP (ADACEL) 2018-02-15 Completed [facility] VACCINE 00:00:00 [facility] TDAP (ADACEL) 2018-02-15 Completed [facility] VACCINE 00:00:00 [facility] TDAP (ADACEL) 2018-02-15 Completed [facility] VACCINE 00:00:00 [facility] TDAP (ADACEL) 2018-02-15 Completed [facility] VACCINE 00:00:00 [facility] TDAP (ADACEL) 2018-02-15 Completed [facility] VACCINE 00:00:00 [facility] TDAP (ADACEL) 2018-02-15 Completed [facility] VACCINE 00:00:00 [facility] TDAP (ADACEL) 2018-02-15 Completed [facility] VACCINE 00:00:00 [facility] TDAP (ADACEL) 2018-02-15 Completed [facility] VACCINE 00:00:00 [facility] TDAP (ADACEL) 2018-02-15 Completed [facility] VACCINE 00:00:00 [facility] TDAP (ADACEL) 2018-02-15 Completed [facility] VACCINE 00:00:00 [facility] TDAP (ADACEL) 2018-02-15 Completed [facility] VACCINE 00:00:00 [facility] TDAP (ADACEL) 2018-02-15 Completed [facility] VACCINE 00:00:00 [facility] TDAP (ADACEL) 2018-02-15 Completed [facility] VACCINE 00:00:00 [facility] TDAP (ADACEL) 2018-02-15 Completed [facility] VACCINE 00:00:00 [facility] TDAP (ADACEL) 2018-02-15 Completed [facility] VACCINE 00:00:00 [facility] TDAP (ADACEL) 2018-02-15 Completed [facility] VACCINE 00:00:00 [facility] TDAP (ADACEL) 2018-02-15 Completed [facility] VACCINE 00:00:00 [facility] TDAP (ADACEL) 2018-02-15 Completed [facility] VACCINE 00:00:00 [facility] TDAP (ADACEL) 2018-02-15 Completed [facility] VACCINE 00:00:00 [facility] TDAP (ADACEL) 2018-02-15 Completed [facility] VACCINE 00:00:00 [facility] TDAP (ADACEL) 2018-02-15 Completed [facility] VACCINE 00:00:00 [facility] TDAP (ADACEL) 2018-02-15 Completed [facility] VACCINE 00:00:00 [facility] TDAP (ADACEL) 2018-02-15 Completed [facility] VACCINE 00:00:00 [facility] TDAP (ADACEL) 2018-02-15 Completed [facility] VACCINE 00:00:00 [facility] TDAP (ADACEL) 2018-02-15 Completed [facility] VACCINE 00:00:00 [facility] TDAP (ADACEL) 2018-02-15 Completed [facility] VACCINE 00:00:00 [facility] TDAP (ADACEL) 2018-02-15 Completed [facility] VACCINE 00:00:00 [facility] TDAP (ADACEL) 2018-02-15 Completed [facility] VACCINE 00:00:00 [facility] TDAP (ADACEL) 2018-02-15 Completed [facility] VACCINE 00:00:00 [facility] TDAP (ADACEL) 2018-02-15 Completed [facility] VACCINE 00:00:00 [facility] TDAP (ADACEL) 2018-02-15 Completed [facility] VACCINE 00:00:00 [facility] TDAP (ADACEL) 2018-02-15 Completed [facility] VACCINE 00:00:00 [facility] TDAP (ADACEL) 2018-02-15 Completed [facility] VACCINE 00:00:00 [facility] TDAP (ADACEL) 2018-02-15 Completed [facility] VACCINE 00:00:00 [facility] TDAP (ADACEL) 2018-02-15 Completed [facility] VACCINE 00:00:00 [facility] TDAP (ADACEL) 2018-02-15 Completed [facility] VACCINE 00:00:00 [facility] TDAP (ADACEL) 2018-02-15 Completed [facility] VACCINE 00:00:00 [facility] TDAP (ADACEL) 2018-02-15 Completed [facility] VACCINE 00:00:00 [facility] TDAP (ADACEL) 2018-02-15 Completed [facility] VACCINE 00:00:00 [facility] TDAP (ADACEL) 2018-02-15 Completed [facility] VACCINE 00:00:00 [facility] TDAP (ADACEL) 2018-02-15 Completed [facility] VACCINE 00:00:00 [facility] TDAP (ADACEL) 2018-02-15 Completed [facility] VACCINE 00:00:00 [facility] TDAP (ADACEL) 2018-02-15 Completed [facility] VACCINE 00:00:00 [facility] TDAP (ADACEL) 2018-02-15 Completed [facility] VACCINE 00:00:00 [facility] TDAP (ADACEL) 2018-02-15 Completed [facility] VACCINE 00:00:00 [facility] TDAP (ADACEL) 2018-02-15 Completed [facility] VACCINE 00:00:00 [facility] TDAP (ADACEL) 2018-02-15 Completed [facility] VACCINE 00:00:00 [facility] Influenza Virus 2017-12-14 Completed [facility] 2017-12-14 Com[facility] Influ[facility] 2017-12-14 Completed [facility] Influenza Virus 2017-12-14 Completed [facility]+ [facility] Influenza Virus 2017-12-14 Completed [facility]+ [facility] Influenza Virus 2017-12-14 Completed [facility]+ 00:[facility] Influenza Virus 2017-12-14 Completed [facility]+ 00:[facility] Influenza Virus 2017-12-14 Completed [facility]+ 00:[facility] Influenza Virus 2017-12-14 Completed [facility]+ 00:[facility]:00 [facility] Influenza Virus 2017-12-14 Completed [facility]+ 00:[facility] Influenza Virus 2017-12-14 Completed [facility] 3+ 00:00:00 [facility] Influenza Virus 2017-12-14 Completed [facility] 3+ 00:00:00 [facility] Influenza Virus 2017-12-14 Completed [facility] 3+ 00:00:00 [facility] Influenza Virus 2017-12-14 Completed [facility] 3+ 00:00:[facility] Influenza Virus 2017-12-14 Completed [facility] 3+ 00:00:00 [facility] Influenza Virus 2017-12-14 Completed [facility] 3+ 00:00:00 [facility] Influenza Virus 2017-12-14 Completed [facility] 3+ 00:00:00 [facility] Influenza Virus 2017-12-14 Completed [facility] 3+ 00:00:00 [facility] Influenza Virus 2017-12-14 Completed [facility] 3+ 00:00:00 [facility] Influenza Virus 2017-12-14 Completed [facility] 3+ 00:00:00 [facility] Influenza Virus 2017-12-14 Completed [facility] 3+ 00:00:00 [facility] Influenza Virus 2017-12-14 Completed [facility] 3+ 00:00:00 [facility] Influenza Virus 2017-12-14 Completed [facility] 3+ 00:00:00 [facility] Influenza Virus 2017-12-14 Completed [facility] 3+ 00:00:00 [facility] Influenza Virus 2017-12-14 Completed [facility] 3+ 00:00:00 [facility] Influenza Virus 2017-12-14 Completed [facility] 3+ 00:00:00 [facility] Influenza Virus 2017-12-14 Completed [facility]+ 00:00:00 [facility] Influenza Virus 2017-12-14 Completed [facility]+ 00:00:00 [facility] Influenza Virus 2017-12-14 Completed [facility]+ 00:00:00 [facility] Influenza Virus 2017-12-14 Completed [facility]+ 00:00:00 [facility] Influenza Virus 2017-12-14 Completed [facility] 3+ 00:00:00 [facility] Influenza Virus 2017-12-14 Completed [facility] 3+ 00:00:00 [facility] Influenza Virus 2017-12-14 Completed [facility] 3+ 00:00:00 [facility] Influenza Virus 2017-12-14 Completed [facility] 3+ 00:00:00 [facility] Influenza Virus 2017-12-14 Completed [facility] 3+ 00:00:00 [facility] Influenza Virus 2017-12-14 Completed [facility] 3+ 00:00:00 [facility] Influenza Virus 2017-12-14 Completed [facility] 3+ 00:00:00 [facility] Influenza Virus 2017-12-14 Completed [facility] 3+ 00:00:00 [facility] Influenza Virus 2017-12-14 Completed [facility] 3+ 00:00:00 [facility] Influenza Virus 2017-12-14 Completed [facility] 3+ 00:00:00 [facility] Influenza Virus 2017-12-14 Completed [facility] 3+ 00:00:00 [facility] Influenza Virus 2017-12-14 Completed [facility] 3+ 00:00:[facility] Influenza Virus 2017-12-14 Completed [facility] 3+ 00:00:[facility] Influenza Virus 2017-12-14 Completed [facility] 3+ 00:00:00 [facility] Influenza Virus 2017-12-14 Completed [facility] 3+ 00:00:00 [facility] Influenza Virus 2017-12-14 Completed [facility] 3+ 00:00:00 [facility] Influenza Virus 2017-12-14 Completed [facility] 3+ 00:00:00 [facility] Influenza Virus 2017-12-14 Completed [facility] 3+ 00:00:00 [facility] Influenza Virus 2017-12-14 Completed [facility] 3+ 00:00:00 [facility] Influenza Virus 2017-12-14 Completed [facility] 3+ 00:00:00 [facility] Influenza Virus 2017-12-14 Completed [facility] 3+ 00:00:00 [facility] Influenza Virus 2017-12-14 Completed [facility] 3+ 00:00:00 [facility] Influenza Virus 2017-12-14 Completed [facility] 3+ 00:00:00 [facility] Influenza Virus 2017-12-14 Completed [facility] 3+ 00:00:00 [facility] Influenza Virus 2017-12-14 Completed [facility] 3+ 00:00:00 [facility] Influenza Virus 2017-12-14 Completed [facility] 3+ 00:00:00 [facility] Influenza Virus 2017-12-14 Completed [facility] 3+ 00:00:00 [facility] Influenza Virus 2017-12-14 Completed [facility] 3+ 00:00:00 [facility] Influenza Virus 2017-12-14 Completed [facility] 3+ 00:00:00 [facility] Influenza Virus 2017-12-14 Completed [facility] 3+ 00:00:00 [facility] Influenza Virus 2017-12-14 Completed [facility] 3+ 00:00:00 [facility] Influenza Virus 2017-12-14 Completed [facility] 3+ 00:00:00 [facility] Influenza Virus 2017-12-14 Completed [facility] 3+ 00:00:00 [facility] Influenza Virus 2017-12-14 Completed [facility] 3+ 00:00:00 [facility] Influenza Virus 2017-12-14 Completed [facility] 3+ 00:00:00 [facility] Influenza Virus 2017-12-14 Completed [facility] 3+ 00:00:00 [facility] Influenza Virus 2017-12-14 Completed [facility] 3+ 00:00:00 [facility] Influenza Virus 2017-12-14 Completed [facility] 3+ 00:00:00 [facility] Influenza Virus 2017-12-14 Completed [facility] 3+ 00:00:00 [facility] Influenza Virus 2017-12-14 Completed [facility] 3+ 00:00:00 [facility] Influenza Virus 2017-12-14 Completed [facility] 3+ 00:00:00 [facility] Influenza Virus 2017-12-14 Completed [facility] IM 3+ 00:00:00 [facility] Influenza Virus 2017-12-14 Completed [facility] 3+ 00:00:00 [facility] Influenza Virus 2017-12-14 Completed [facility] 3+ 00:00:00 [facility] Influenza Virus 2017-12-14 Completed [facility] 3+ 00:00:00 [facility] Influenza Virus 2017-12-14 Completed [facility] 3+ 00:00:00 [facility] Influenza Virus 2017-12-14 Completed [facility] 3+ 00:00:00 [facility] Influenza Virus 2017-12-14 Completed [facility] IM 3+ 00:00:00 [facility] Influenza Virus 2017-12-14 Completed [facility] 3+ 00:00:00 [facility] Influenza Virus 2017-12-14 Completed [facility] 3+ 00:00:[facility] Influenza Virus 2017-12-14 Completed [facility] Varicella 2016-05-24 Completed [facility] (varivax)(chicken [...] Varicella 2016-05-24 Completed [facility] (varivax)(chicken 00:00:00 [facility] TDAP 2016-04-03 Completed [facility] 00:00:00 [facility] TDAP 2016-04-03 Completed [facility] 00:00:00 [facility] TDAP 2016-04-03 Completed [facility] 00:00:00 [facility] TDAP 2016-04-03 Completed [facility] 00:00:00 [facility] TDAP 2016-04-03 Completed [facility] 00:00:00 [facility] TDAP 2016-04-03 Completed [facility] 00:00:00 [facility] TDAP 2016-04-03 Completed [facility] 00:00:00 [facility] TDAP 2016-04-03 Completed [facility] 00:00:00 [facility] TDAP 2016-04-03 [facility]00:00 [facility] TDAP 2016-04-03 Completed [facility] 00:00:00 [facility] TDAP 2016-04-03 Completed [facility] 00:00:00 [facility] TDAP 2016-04-03 Completed [facility] 00:00:00 [facility] TDAP 2016-04-03 Completed [facility] 00:00:00 [facility] TDAP 2016-04-03 Completed [facility] 00:00:00 [facility] TDAP 2016-04-03 Completed [facility] 00:00:00 [facility] TDAP 2016-04-03 Completed [facility] 00:00:00 [facility] TDAP 2016-04-03 Completed [facility] 00:00:00 [facility] TDAP 2016-04-03 Completed [facility] 00:00:00 [facility] TDAP 2016-04-03 Completed [facility] 00:00:00 [facility] TDAP 2016-04-03 Completed [facility] 00:00:00 [facility] TDAP 2016-04-03 Completed [facility] 00:00:00 [facility] TDAP 2016-04-03 Completed [facility] 00:00:00 [facility] TDAP 2016-04-03 Completed [facility] 00:00:00 [facility] TDAP 2016-04-03 Completed [facility] 00:00:00 [facility] TDAP 2016-04-03 Completed [facility] 00:00:00 [facility] TDAP 2016-04-03 Completed [facility] 00:00:00 [facility] TDAP 2016-04-03 Completed [facility] 00:00:00 [facility] TDAP 2016-04-03 Completed [facility] 00:00:00 [facility] TDAP 2016-04-03 Completed [facility] 00:00:00 [facility] TDAP 2016-04-03 Completed [facility] 00:00:00 [facility] TDAP 2016-04-03 Completed [facility] 00:00:00 [facility] TDAP 2016-04-03 Completed [facility] 00:00:00 [facility] TDAP 2016-04-03 Completed [facility] 00:00:00 [facility] TDAP 2016-04-03 Completed [facility] 00:00:00 [facility] TDAP 2016-04-03 Completed [facility] 00:00:00 [facility] TDAP 2016-04-03 Completed [facility] 00:00:00 [facility] TDAP 2016-04-03 Completed [facility] 00:00:00 [facility] TDAP 2016-04-03 Completed [facility] 00:00:00 [facility] TDAP 2016-04-03 Completed [facility] 00:00:00 [facility] TDAP 2016-04-03 Completed [facility] 00:00:00 [facility] TDAP 2016-04-03 Completed [facility] 00:00:00 [facility] TDAP 2016-04-03 Completed [facility] 00[facility]00:00 [facility] TDAP 2016-04-03 Completed [facility] 00:00:00 [facility] TDAP 2016-04-03 Completed [facility] 00:00:00 [facility] Tdap 2016-04-03 Completed [facility] 00:00:00 [facility] Tdap 2016-04-03 Completed [facility] 00:00:00 [facility] Tdap 2016-04-03 Completed [facility] 00:00:00 [facility] Tdap 2016-04-03 Completed [facility] 00:00:00 [facility] Tdap 2016-04-03 Completed [facility] 00:00:00 [facility] Tdap 2016-04-03 Completed [facility] 00:00:00 [facility] Tdap 2016-04-03 Completed [facility] 00:00:00 [facility] Tdap 2016-04-03 Completed [facility] 00:00:00 [facility] Tdap 2016-04-03 Completed [facility] 00:00:00 [facility] Tdap 2016-04-03 Completed [facility] 00:00:00 [facility] Tdap 2016-04-03 Completed [facility] 00:00:00 [facility] Tdap 2016-04-03 Completed [facility] 00:00:00 [facility] Tdap 2016-04-03 Completed [facility] 00:00:00 [facility] Tdap 2016-04-03 Completed [facility] 00:00:00 [facility] Tdap 2016-04-03 Completed [facility] 00:00:00 [facility] Tdap 2016-04-03 Completed [facility] 00:00:00 [facility] Tdap 2016-04-03 Completed [facility] 00:00:00 [facility] Tdap 2016-04-03 Completed [facility] 00:00:00 [facility] Tdap 2016-04-03 Completed [facility] 00:00:00 [facility] Tdap 2016-04-03 Completed [facility] 00:00:00 [facility] Tdap 2016-04-03 Completed [facility] 00:00:00 [facility] Tdap 2016-04-03 Completed [facility] 00:00:00 [facility] Tdap 2016-04-03 Completed [facility] 00:00:00 [facility] Tdap 2016-04-03 Completed [facility] 00:00:00 [facility] Tdap 2016-04-03 Completed [facility] 00:00:00 [facility] Tdap 2016-04-03 Completed [facility] 00:00:00 [facility] Tdap 2016-04-03 Completed [facility] 00:00:00 [facility] TDAP 2016-04-03 Completed [facility] 00:00:00 [facility] TDAP 2016-04-03 Completed [facility] 00:00:00 [facility] TDAP 2016-04-03 Completed [facility] 00:00:00 [facility] TDAP 2016-04-03 Completed [facility] 00:00:00 [facility] TDAP 2016-04-03 Completed [facility] 00:00:00 [facility] TDAP 2016-04-03 Completed [facility] 00:00:00 [facility] TDAP 2016-04-03 Completed [facility] 00:00:00 [facility] TDAP 2016-04-03 Completed [facility] 00:00:00 [facility] Rho (d) Immune 2016-03-27 Completed [facility] of Globulin 00:00:00 [facility] Rho (d) Immune 2016-03-27 Completed [facility] Globulin 00:00:00 [facility] Rho (d) Immune 2016-03-27 Completed [facility] Globulin 00:00:00 [facility] Rho (d) Immune 2016-03-27 Completed [facility] Globulin 00:00:00 [facility] Rho (d) Immune 2016-03-27 Completed [facility] Gl[facility]ulin 00:00:00 [facility] Rho (d) Immune 2016-03-27 Completed [facility] Globulin 00:00:00 [facility] Rho (d) Immune 2016-03-27 Completed [facility] Globulin 00:00:00 [facility] Rho (d) Immune 2016-03-27 Completed [facility] Globulin 00:00:00 [facility] Rho (d) Immune 2016-03-27 Completed [facility] Globulin 00:00:00 [facility] Rho (d) Immune 2016-03-27 Completed [facility] Globulin 00:00:00 [facility] Rho (d) Immune 2016-03-27 Completed [facility] Globulin 00:00:00 [facility] Rho (d) Immune 2016-03-27 Completed [facility] Globulin 00:00:00 [facility] Rho (d) Immune 2016-03-27 Completed [facility] Globulin 00:00:00 [facility] Rho (d) Immune 2016-03-27 Completed [facility] Globulin 00:00:00 [facility] Rho (d) Immune 2016-03-27 Completed [facility] Globulin 00:00:00 [facility] Rho (d) Immune 2016-03-27 Completed [facility] Globulin 00:00:00 [facility] Rho (d) Immune 2016-03-27 Completed [facility] Globulin 00:00:00 [facility] Rho (d) Immune 2016-03-27 Completed [facility] Globulin 00:00:00 [facility] Rho (d) Immune 2016-03-27 Completed [facility] Globulin 00:00:00 [facility] Rho (d) Immune 2016-03-27 Completed [facility] Globulin 00:00:00 [facility] Rho (d) Immune 2016-03-27 Completed [facility] Globulin 00:00:00 [facility] Rho (d) Immune 2016-03-27 Completed [facility] Globulin 00:00:00 [facility] Rho (d) Immune 2016-03-27 Completed [facility] Globulin 00:00:00 [facility] Rho (d) Immune 2016-03-27 Completed [facility] Globulin 00:00:00 [facility] Rho (d) Immune 2016-03-27 Completed [facility] Globulin 00:00:00 [facility] Rho (d) Immune 2016-03-27 Completed [facility] Globulin 00:00:00 [facility] Rho (d) Immune 2016-03-27 Completed [facility] Globulin 00:00:00 [facility] Rho (d) Immune 2016-03-27 Completed [facility] Globulin 00:00:00 [facility] Rho (d) Immune 2016-03-27 Completed [facility] Globulin 00:00:00 [facility] Rho (d) Immune 2016-03-27 Completed [facility] Globulin 00:00:00 [facility] Rho (d) Immune 2016-03-27 Completed [facility] Globulin 00:00:00 [facility] Rho (d) Immune 2016-03-27 Completed [facility] Globulin 00:00:00 [facility] Rho (d) Immune 2016-03-27 Completed [facility] Globulin 00:00:00 [facility] Rho (d) Immune 2016-03-27 Completed [facility] Globulin 00:00:00 [facility] Rho (d) Immune 2016-03-27 Completed [facility] Globulin 00:00:00 [facility] Rho (d) Immune 2016-03-27 Completed [facility] Globulin 00:00:00 [facility] Rho (d) Immune 2016-03-27 Completed [facility] Globulin 00:00:00 [facility] Rho (d) Immune 2016-03-27 Completed [facility] Globulin 00:00:00 [facility] Rho (d) Immune 2016-03-27 Completed [facility] Globulin 00:00:00 [facility] Rho (d) Immune 2016-03-27 Completed [facility] Globulin 00:00:00 [facility] Rho (d) Immune 2016-03-27 Completed [facility] Globulin 00:00:00 [facility] Rho (d) Immune 2016-03-27 Completed [facility] Globulin 00:00:00 [facility] Rho (d) Immune 2016-03-27 Completed [facility] Globulin 00:00:00 [facility] Rho (d) Immune 2016-03-27 Completed [facility] Globulin 00:00:00 [facility] Rho (d) Immune 2016-03-27 Completed [facility] Globulin 00:00:00 [facility] Rho (d) Immune 2016-03-27 Completed [facility] Globulin 00:00:00 [facility] Rho (d) Immune 2016-03-27 Completed [facility] Globulin 00:00:00 [facility] Rho (d) Immune 2016-03-27 Completed [facility] Globulin 00:00:00 [facility] Rho (d) Immune 2016-03-27 Completed [facility] Globulin 00:00:00 [facility] Rho (d) Immune 2016-03-27 Completed [facility] Globulin 00:00:00 [facility] Rho (d) Immune 2016-03-27 Completed [facility] Globulin 00:00:00 [facility] Rho (d) Immune 2016-03-27 Completed [facility] Globulin 00:00:00 [facility] Rho (d) Immune 2016-03-27 Completed [facility] Globulin 00:00:00 [facility] Rho (d) Immune 2016-03-27 Completed [facility] Globulin 00:00:00 [facility] Rho (d) Immune 2016-03-27 Completed [facility] Globulin 00:00:00 [facility] Rho (d) Immune 2016-03-27 Completed [facility] Globulin 00:00:00 [facility] Rho (d) Immune 2016-03-27 Completed [facility] Globulin 00:00:00 [facility] Rho (d) Immune 2016-03-27 Completed [facility] Globulin 00:00:00 [facility] Rho (d) Immune 2016-03-27 Completed [facility] Globulin 00:00:00 [facility] Rho (d) Immune 2016-03-27 Completed [facility] Globulin 00:00:00 [facility] Rho (d) Immune 2016-03-27 Completed [facility] Globulin 00:00:00 [facility] Rho (d) Immune 2016-03-27 Completed [facility] Globulin 00:00:00 [facility] Rho (d) Immune 2016-03-27 Completed [facility] Globulin 00:00:00 [facility] Rho (d) Immune 2016-03-27 Completed [facility] Globulin 00:00:00 [facility] Rho (d) Immune 2016-03-27 Completed [facility] Globulin 00:00:00 [facility] Rho (d) Immune 2016-03-27 Completed [facility] Globulin 00:00:00 [facility] Rho (d) Immune 2016-03-27 Completed [facility] Globulin 00:00:00 [facility] Rho (d) Immune 2016-03-27 Completed [facility] Globulin 00:00:00 [facility] Rho (d) Immune 2016-03-27 Completed [facility] Globulin 00:00:00 [facility] Rho (d) Immune 2016-03-27 Completed [facility] Globulin 00:00:00 [facility] Rho (d) Immune 2016-03-27 Completed [facility] Globulin 00:00:00 [facility] Rho (d) Immune 2016-03-27 Completed [facility] Globulin 00:00:00 [facility] Rho (d) Immune 2016-03-27 Completed [facility] Globulin 00:00:00 [facility] Rho (d) Immune 2016-03-27 Completed [facility] Globulin 00:00:00 [facility] Rho (d) Immune 2016-03-27 Completed [facility] Globulin 00:00:00 [facility] Rho (d) Immune 2016-03-27 Completed [facility] Globulin 00:00:00 [facility] Rho (d) Immune 2016-03-27 Completed [facility] Globulin 00:00:00 [facility] Rho (d) Immune 2016-03-27 Completed [facility] Globulin 00:00:00 [facility] Rho (d) Immune 2016-03-27 Completed [facility] Globulin 00:00:00 [facility] Rho (d) Immune 2016-03-27 Completed [facility] Globulin 00:00:00 [facility] Rho (d) Immune 2016-03-27 Completed [facility] Globulin 00:00:00 [facility] Vital Signs Vital Name Observation Time Observation Value Comments Source HEIGHT 2020-09-22 06:00:00 152.4 cm WEIGHT 2020-09-22 06:00:00 80.8 kg HEIGHT 2020-09-21 19:00:00 152.4 cm WEIGHT 2020-09-21 19:00:00 80.786 kg Systolic blood 2020-11-26 13:09:00 118 mm[Hg] Univer sity of pressure [facility] Diastolic blood 2020-11-26 13:09:00 75 mm[Hg] Unive rsity of pressure [facility] Heart rate 2020-11-26 13:09:00 72 /min [facility] Body height 2020-11-26 13:09:00 160 cm [facility] Body weight 2020-11-26 13:09:00 81.647 kg [facility] BMI 2020-11-26 13:09:00 31.89 kg/m2 [facility] Oxygen saturation in 2020-11-26 13:09:00 100 /min [facility] Arterial blood by [facility] Pulse oximetry Branch Systolic blood 2020-11-01 18:58:00 136 mm[Hg] Univer sity of pressure [facility] Diastolic blood 2020-11-01 18:58:00 83 mm[Hg] Unive rsity of pressure [facility] Heart rate 2020-11-01 18:58:00 65 /min [facility] Body temperature 2020-11-01 18:58:00 37.06 Shira Univ ersity [facility] Respiratory rate 2020-11-01 18:58:00 18 /min Univ ersity of [facility] Body height 2020-11-01 18:58:00 160 cm [facility] Body weight 2020-11-01 18:58:00 80.377 kg [facility] BMI 2020-11-01 18:58:00 31.39 kg/m2 [facility] Oxygen saturation in 2020-11-01 18:58:00 100 /min [facility] Arterial blood by [facility] Pulse oxim[facility] Branch Systolic blood 2020-10-09 20:57:00 121 mm[Hg] Univer sity of pressure [facility] Diastolic blood 2020-10-09 20:57:00 72 mm[Hg] Unive rsity of pressure [facility] Heart rate 2020-10-09 20:57:00 75 /min [facility] Body temperature 2020-10-09 20:57:00 36.61 Shira [facility] Respiratory rate 2020-10-09 20:57:00 16 /min Univ ersity of [facility] Body height 2020-10-09 20:57:00 160 cm [facility] Body weight 2020-10-09 20:57:00 81.421 kg [facility] BMI 2020-10-09 20:57:00 31.80 kg/m2 [facility] Systolic blood 2020-10-09 20:57:00 121 mm[Hg] Univer sity of pressure [facility] Diastolic blood 2020-10-09 20:57:00 72 mm[Hg] Unive rsity of pressure [facility] Heart rate 2020-10-09 20:57:00 75 /min [facility] Body temperature 2020-10-09 20:57:00 36.61 Shira [facility] Respiratory rate 2020-10-09 20:57:00 16 /min Univ ersity [facility] Body height 2020-10-09 20:57:00 160 cm [facility] Body weight 2020-10-09 20:57:00 81.421 kg [facility] BMI 2020-10-09 20:57:00 31.80 kg/m2 [facility] Systolic blood 2020-10-05 09:00:00 115 mm[Hg] Univer sity of pressure [facility] Diastolic blood 2020-10-05 09:00:00 68 mm[Hg] Unive rsity of pressure [facility] Heart rate 2020-10-05 09:00:00 70 /min [facility] Body temperature 2020-10-05 09:00:00 36.56 Shira [facility] ersity of [facility] Respiratory rate 2020-10-05 09:00:00 18 /min Univ ersity of [facility] Oxygen saturation in 2020-10-05 09:00:00 98 /min [facility] Arterial blood by [facility] Body height 2020-10-01 14:40:00 160 cm [facility] Body weight 2020-10-01 14:40:00 79.379 kg [facility] BMI 2020-10-01 14:40:00 31.00 kg/m2 [facility] HEIGHT 2020-09-22 06:00:00 152.4 cm WEIGHT 2020-09-22 06:00:00 80.8 kg HEIGHT 2020-09-21 19:00:00 152.4 cm WEIGHT 2020-09-21 19:00:00 80.786 kg Systolic blood 2020-09-15 05:45:58 155 mm[Hg] Univer sity of pressure [facility] Diastolic blood 2020-09-15 05:45:58 102 mm[Hg] Unive rsity of pressure [facility] Heart rate 2020-09-15 05:45:58 95 /min [facility] Respiratory rate 2020-09-15 05:45:58 19 /min Univ [facility] Oxygen saturation in 2020-09-15 05:45:58 98 /min [facility] Arterial blood by [facility] Body temperature 2020-09-15 02:54:00 36.67 Shira [facility] Body weight 2020-09-15 02:54:00 79.379 kg [facility] BMI 2020-09-15 02:54:00 31.00 kg/m2 [facility] Systolic blood 2020-09-13 05:00:00 110 mm[Hg] Univer sity of pressure [facility] Diastolic blood 2020-09-13 05:00:00 56 mm[Hg] Unive rsity of [facility] Heart rate 2020-09-13 05:00:00 100 /min [facility] Body temperature 2020-09-13 05:00:00 37.33 Shira [facility] Respiratory rate 2020-09-13 05:00:00 18 /min Univ [facility] Oxygen saturation in 2020-09-13 04:00:00 100 /min [facility] Arterial blood by [facility] Body height 2020-09-13 00:48:00 160 cm [facility] Body weight 2020-09-13 00:48:00 78.019 kg [facility] BMI 2020-09-13 00:48:00 30.47 kg/m2 [facility] Systolic blood 2020-09-12 02:30:00 126 mm[Hg] Univer sity of pressure [facility] Diastolic blood 2020-09-12 02:30:00 80 mm[Hg] Unive rsity of pressure [facility] Heart rate 2020-09-12 02:30:00 103 /min [facility] Respiratory rate 2020-09-12 02:30:00 21 /min Univ [facility] Oxygen saturation in 2020-09-12 02:30:00 98 /min [facility] Arterial blood by [facility] o[facility] Body temperature 2020-09-12 01:33:00 37.72 Shira [facility] Body height 2020-09-12 01:33:00 160 cm [facility] Body weight 2020-09-12 01:33:00 77.111 kg [facility] BMI 2020-09-12 01:33:00 30.11 kg/m2 [facility] Systolic blood 2020-08-31 17:00:00 121 mm[Hg] Univer sity of pressure [facility] Diastolic blood 2020-08-31 17:00:00 76 mm[Hg] Unive rsity of pressure [facility] Heart rate 2020-08-31 17:00:00 71 /min [facility] Respiratory rate 2020-08-31 17:00:00 12 /min Univ ersity [facility] Oxygen saturation in 2020-08-31 17:00:00 97 /min [facility] Arterial blood by [place] [facility] Body temperature 2020-08-31 16:20:00 38.5 Shira [facility] Body weight 2020-08-31 16:20:00 77.111 kg [facility] BMI 2020-08-31 16:20:00 30.11 kg/m2 [facility] Systolic blood 2020-08-30 04:04:21 139 mm[Hg] Univer sity of pressure [facility] Diastolic blood 2020-08-30 04:04:21 78 mm[Hg] Unive rsity of pressure [facility] Heart rate 2020-08-30 04:04:21 83 /min [facility] Body temperature 2020-08-30 04:04:21 37.72 Shira [facility] Respiratory rate 2020-08-30 04:04:21 19 /min Univ ersity [facility] Oxygen saturation in 2020-08-30 04:04:21 99 /min [facility] Arterial blood by [place] [facility] Body height 2020-08-30 01:45:00 160 cm [facility] Body weight 2020-08-30 01:45:00 77.111 kg [facility] BMI 2020-08-30 01:45:00 30.11 kg/m2 [facility] Systolic blood 2020-06-07 16:00:00 127 mm[Hg] Univer sity of pressure [facility] Diastolic blood 2020-06-07 16:00:00 73 mm[Hg] Unive rsity of pressure [facility] Heart rate 2020-06-07 16:00:00 86 /min [facility] Body temperature 2020-06-07 16:00:00 37.39 Shira [facility] Respiratory rate 2020-06-07 16:00:00 16 /min Univ [facility] Body height 2020-06-07 16:00:00 162.6 cm [facility] Body weight 2020-06-07 16:00:00 73.539 kg [facility] BMI 2020-06-07 16:00:00 27.83 kg/m2 [facility] Systolic blood 2020-05-14 01:03:00 140 mm[Hg] Univer sity of pressure [facility] Diastolic blood 2020-05-14 01:03:00 97 mm[Hg] Unive rsity of pressure [facility] Heart rate 2020-05-14 01:03:00 89 /min [facility] Body temperature 2020-05-14 01:03:00 37.33 Shira [facility] Respiratory rate 2020-05-14 01:03:00 20 /min Univ [facility] Body height 2020-05-14 01:03:00 162.6 cm [facility] Body weight 2020-05-14 01:03:00 73.483 kg [facility] BMI 2020-05-14 01:03:00 27.81 kg/m2 [facility] Oxygen saturation in 2020-05-14 01:03:00 100 /min University Arterial blood by [facility] P[facility] oxim[facility] Systolic blood 2020-01-17 19:49:00 123 mm[Hg] Univer sity of pressure [facility] Diastolic blood 2020-01-17 19:49:00 73 mm[Hg] Unive rsity of pressure [facility] Heart rate 2020-01-17 19:49:00 75 /min [facility] Body temperature 2020-01-17 19:49:00 37.39 Shira [facility] Respiratory rate 2020-01-17 19:49:00 16 /min Univ [facility] Body height 2020-01-17 19:49:00 160 cm [facility] Body weight 2020-01-17 19:49:00 86.183 kg [facility] BMI 2020-01-17 19:49:00 33.66 kg/m2 [facility] Systolic blood 2019-12-30 15:30:00 133 mm[Hg] Univer sity of pressure [facility] Diastolic blood 2019-12-30 15:30:00 84 mm[Hg] Unive rsity of pressure [facility] Heart rate 2019-12-30 15:30:00 98 /min [facility] Body temperature 2019-12-30 15:30:00 36.56 Shira [facility] Respiratory rate 2019-12-30 15:30:00 16 /min Univ [facility] Body height 2019-12-30 15:30:00 162.6 cm [facility] Body weight 2019-12-30 15:30:00 84.936 kg [facility] BMI 2019-12-30 15:30:00 32.14 kg/m2 [facility] Systolic blood 2019-12-20 18:23:00 123 mm[Hg] Univer sity of pressure [facility] Diastolic blood 2019-12-20 18:23:00 76 mm[Hg] Unive rsity of pressure [facility] Heart rate 2019-12-20 18:23:00 83 /min [facility] Body temperature 2019-12-20 18:23:00 36.89 Shira [facility] Respiratory rate 2019-12-20 18:23:00 16 /min Univ [facility] Body height 2019-12-20 18:23:00 160 cm [facility] Body weight 2019-12-20 18:23:00 85.911 kg [facility] BMI 2019-12-20 18:23:00 33.55 kg/m2 [facility] Systolic blood 2019-09-27 19:20:00 129 mm[Hg] Univer sity of pressure [facility] Diastolic blood 2019-09-27 19:20:00 71 mm[Hg] Unive rsity of pressure [facility] Heart rate 2019-09-27 19:20:00 99 /min Universi ty of [facility] Body temperature 2019-09-27 19:20:00 36.44 Shira Univ ersity of [facility] Respiratory rate 2019-09-27 19:20:00 16 /min Univ ersity of [facility] Body height 2019-09-27 19:20:00 162.6 cm [facility] Body weight 2019-09-27 19:20:00 85.787 kg [facility]i ty of [facility] BMI 2019-09-27 19:20:00 32.46 kg/m2 Universi ty of [facility] Systolic blood 2019-08-18 16:00:00 109 mm[Hg] Univer sity of pressure [facility] Diastolic blood 2019-08-18 16:00:00 66 mm[Hg] Unive rsity of pressure [facility] Heart rate 2019-08-18 16:00:00 83 /min [facility] Respiratory rate 2019-08-18 16:00:00 18 /min Univ ersity of [facility] Oxygen saturation in 2019-08-18 16:00:00 99 /min [facility] Arterial blood by [facility] Body temperature 2019-08-18 13:21:00 36.56 Shira Univ ersity of [facility] Body height 2019-08-18 13:21:00 162.6 cm Universi ty of [facility] Body weight 2019-08-18 13:21:00 77.111 kg [facility] BMI 2019-08-18 13:21:00 29.18 kg/m2 [facility] ty of [facility] Systolic blood 2019-07-29 04:27:00 134 mm[Hg] Univer sity of pressure [facility] Diastolic blood 2019-07-29 04:27:00 80 mm[Hg] Unive rsity of pressure [facility] Heart rate 2019-07-29 04:27:00 80 /min Universi ty of [facility] Respiratory rate 2019-07-29 04:27:00 18 /min Univ ersity of [facility] Oxygen saturation in 2019-07-29 04:27:00 98 /min [facility] Arterial blood by [facility]ressa P[facility] o[facility] Branch Body temperature 2019-07-28 22:32:00 37.22 Shira [facility] Body height 2019-07-28 22:32:00 162.6 cm [facility] Body weight 2019-07-28 22:32:00 81.647 kg [facility] BMI 2019-07-28 22:32:00 30.90 kg/m2 [facility] ty of [facility] Systolic blood 2019-06-27 02:00:00 122 mm[Hg] Univer sity of pressure [facility] Diastolic blood 2019-06-27 02:00:00 65 mm[Hg] Unive rsity of pressure [facility] Heart rate 2019-06-27 02:00:00 98 /min Universi ty of [facility] Respiratory rate 2019-06-27 02:00:00 18 /min Univ ersity of [facility] Oxygen saturation in 2019-06-27 02:00:00 99 /min [facility] Arterial blood by [facility] tressa [facility] Body temperature 2019-06-27 00:13:46 36.83 Shira Univ ersity of [facility] Body height 2019-06-27 00:10:00 160 cm [facility] Body weight 2019-06-27 00:10:00 79.379 kg [facility] BMI 2019-06-27 00:10:00 31.00 kg/m2 [facility] Systolic blood 2019-05-17 18:28:00 127 mm[Hg] Univer sity of pressure [facility] Diastolic blood 2019-05-17 18:28:00 68 mm[Hg] Unive rsity of pressure [facility] Heart rate 2019-05-17 18:28:00 75 /min Universi ty of [facility] Body temperature 2019-05-17 18:28:00 36.89 Shira Univ ersity of [facility] Respiratory rate 2019-05-17 18:28:00 16 /min Univ ersity of [facility] Body height 2019-05-17 18:28:00 162.6 cm [facility] [place] [facility] Body weight 2019-05-17 18:28:00 79.635 kg [facility] [place] [facility] BMI 2019-05-17 18:28:00 30.14 kg/m2 Universi ty of [facility] Systolic blood 2019-04-20 17:06:00 134 mm[Hg] Univer sity of pressure [facility] Diastolic blood 2019-04-20 17:06:00 76 mm[Hg] Unive rsity of pressure [facility] Heart rate 2019-04-20 17:06:00 112 /min Universi ty of [facility] Body temperature 2019-04-20 17:06:00 37.33 Shira Univ ersity of [facility] Respiratory rate 2019-04-20 17:06:00 18 /min Univ ersity of [facility] Body weight 2019-04-20 17:06:00 81.647 kg Universi ty of [facility] BMI 2019-04-20 17:06:00 30.90 kg/m2 Universi ty of [facility] Oxygen saturation in 2019-04-20 17:06:00 98 /min [facility] Arterial blood by [facility] Pulse oximetry Branch Systolic blood 2019-03-21 22:03:00 139 mm[Hg] Univer sity of pressure [facility] Diastolic blood 2019-03-21 22:03:00 81 mm[Hg] Unive rsity of pressure [facility] Heart rate 2019-03-21 22:03:00 93 /min Universi ty of [facility] Body temperature 2019-03-21 22:03:00 37.33 Shira Univ ersity of [facility] Respiratory rate 2019-03-21 22:03:00 16 /min Univ ersity [facility] Body height 2019-03-21 22:03:00 162.6 cm Universi ty of [facility] Body weight 2019-03-21 22:03:00 76.233 kg Universi ty of [facility] BMI 2019-03-21 22:03:00 28.85 kg/m2 Universi ty [facility] Procedures Procedure Date / Time Performing Clinician Source Performed MR BRAIN W WO CONTRAST 2020-10-18 19:21:42 Suzie Frey [facility] ASSIGNMENT OF BENEFITS 2020-10-09 20:43:10 Doctor Unassigned, No [facility] LITHIUM 2020-10-05 10:05:00 Jacinto Parks [facility] HOSPITAL ADMISSION 2020-10-01 05:01:00 Doctor Unassigned, No Uni versity of [facility] EPILEPSY MONITORING UNIT 2020-09-30 05:01:00 Doctor Unassigned, No [facility] ASSIGNMENT OF BENEFITS 2020-09-26 17:05:24 Doctor Unassigned, No [facility] POCT TEST 2020-09-15 04:50:00 Cheo Galvin [facility] CBC WITH DIFF 2020-09-15 04:14:00 [place], [facility] CREATINE KINASE 2020-09-15 04:03:00 Glenis [facility] COMP. METABOLIC PANEL 2020-09-15 04:03:00 Cheo Galvin [facility] ([id number]) [facility] ETHANOL 2020-09-15 04:03:00 [place], [facility] URINE DRUG (IMMUNOASSAY) 2020-09-15 04:03:00 Cheo Galvin [facility] SCREEN URINALYSIS 2020-09-15 04:03:00 [place], [facility] URINALYSIS 2020-08-31 17:10:00 Peace Paz [facility] POCT TEST 2020-08-31 17:08:00 Peace Paz [facility] COMP. METABOLIC PANEL 2020-08-31 16:30:00 Peace Paz [facility] ([id number]) [facility] CBC WITH DIFF 2020-08-31 16:30:00 Peace Paz [facility] LACTIC ACID WHOLE BLOOD 2020-08-31 16:30:00 Peace Paz [facility] POCT TEST 2020-08-30 02:44:00 Peace Paz [facility] URINALYSIS 2020-08-30 02:39:00 Peace Paz Yulia [facility] COVID-19 (ID NOW RAPID 2020-08-30 02:16:00 Peace Paz [facility] TESTING) [facility] NOTICE OF PRIVACY 2020-08-30 01:38:13 Doctor Unassigned, No Univ [facility] PRACTICES Name Medical Branch CONSENT/REFUSAL FOR 2020-08-30 01:31:54 Doctor Unassigned, No [facility] [place] DI[facility] TREATMENT Name [facility] POCT URINALYSIS W/O 2020-06-07 16:03:00 Terrelljeanetteaure [facility] CT ABDOMEN PELVIS WO 2020-05-14 01:54:47 Peace Paz [facility] CONTRAST [facility] COMP. METABOLIC PANEL 2020-05-14 01:30:00 Peace Paz [facility] ([id number]) Medical Branch CBC WITH DIFF 2020-05-14 01:30:00 Peace Paz [facility] URINALYSIS 2020-05-14 01:08:00 Peace Paz [facility] POCT TEST 2020-05-14 01:08:00 Peace Paz [facility] CONSENT/REFUSAL FOR 2020-05-14 00:21:36 Doctor Unassigned, No [facility] [place] [facility] TREAT[facility] Name [facility] GARDASIL 9 (HPV 9V) 2019-12-30 15:25:24 Abena Patel [facility] VACCINE [facility] GARDASIL 9 (HPV 9V) 2019-09-27 20:17:36 Abena Patel [facility] VACCINE [facility] POCT URINALYSIS W/O 2019-09-27 19:58:00 Abena Patel [facility] SPECIFIC [facility] POCT TEST 2019-09-27 19:41:00 Abena Patel [facility] XR CHEST 1 VW 2019-08-18 15:36:27 Raven Goldsmith [facility] COVID-19 (ID NOW RAPID 2019-08-18 14:07:00 Raven Goldsmith [facility] TESTING) Medical Branch RAPID STREP SCREEN FOR 2019-08-18 14:06:00 [facility] GROUP A Medical Branch TEST, SERUM 2019-08-18 14:05:00 Raven Goldsmith [facility] HEPATIC FUNCTION PANEL 2019-08-18 14:05:00 Raven Goldsmith [facility] ([id number]) (ALB,T.PRO,BILI Medical Branch T,BU/BC,ALT,AST,ALK PHOS) BASIC METABOLIC PANEL 2019-08-18 14:05:00 Raven Goldsmith [facility] (NA, K, CL, CO2, Medical Branch GLUCOSE, BUN, CREATININE, CA) CBC WITH DIFFERENTIAL 2019-08-18 14:05:00 Raven Goldsmith [facility] PROTHROMBIN TIME / INR 2019-08-18 14:05:00 Raven Goldsmith [facility] ACTIVATED PARTIAL 2019-08-18 14:05:00 Agus Count includes the [facility] THRMPLAS ISABELL [facility] CONSENT/REFUSAL FOR 2019-08-18 13:01:15 Doctor Unassigned, No Un [facility] DIAGNOSIS AND TREATMENT Name Medical Branch CT CHEST PULMONARY 2019-07-29 04:01:04 Yovani Romero [facility] ANGIOGRAM Medical Branch TROPONIN I 2019-07-29 01:38:00 Nick [facility] COMP. METABOLIC PANEL 2019-07-29 01:38:00 Nick [facility] ([id number]) Medical Branch CBC WITH DIFFERENTIAL 2019-07-29 01:38:00 [facility] 2019-07-29 01:38:00 Nick [facility] XR CHEST 2 VW 2019-07-28 23:41:53 Nick [facility] EKG-12 LEAD 2019-07-28 23:31:26 Nick [facility] POCT TEST 2019-07-28 23:19:00 Yovani Romero [facility] COVID-19 (ID NOW RAPID 2019-07-28 23:18:00 Yovani Romero [facility] TESTING) Medical Branch NOTICE OF PRIVACY 2019-07-28 22:13:33 Doctor Unassigned, No Univ [facility] PRACTICES Name Medical Branch CONSENT/REFUSAL FOR 2019-07-28 22:13:23 Doctor Unassigned, No [facility]REATMENT Name Medical Branch CT ABDOMEN PELVIS WO 2019-06-27 01:06:22 Lory Pimentel [facility] CONTRAST [facility] POCT TEST 2019-06-27 00:37:00 Lory Pimentel [facility] BASIC METABOLIC PANEL 2019-06-27 00:32:00 Lory Pimentel I U [facility] (NA, K, CL, CO2, Medical Branch GLUCOSE, BUN, CREATININE, CA) CBC WITH DIFFERENTIAL 2019-06-27 00:32:00 Lory Pimentel [facility]IN[facility]YSIS 2019-06-27 00:32:00 PimentelLory I [facility] GARDASIL 9 (HPV 9V) 2019-05-17 18:42:52 Abena Patel [facility] VACCINE [facility] POCT URINALYSIS W/O 2019-05-17 18:32:00 Abena Patel [facility] SPECIFIC GRAVITY [facility] POCT TEST 2019-04-20 19:21:00 Raven Goldsmith [facility] URINALYSIS 2019-04-20 19:20:00 Agus [facility] ADC / LCC - DRUG SCREEN 2019-04-20 19:20:00 Peace Paz [facility] TRIAGE [facility] LIPASE 2019-04-20 17:45:00 Agus [facility] COMP. METABOLIC PANEL 2019-04-20 17:45:00 Raven Goldsmith [facility] ([id number]) [facility] CBC WITH DIFFERENTIAL 2019-04-20 17:45:00 [facility] HIV 1/2 AG-AB WITH 2019-03-21 22:15:00 Trever Katz [facility] REFLEX [facility] Plan of Care Planned Activity Planned Date Details Comments Source Future Scheduled Test COVID-19 VACCINE (1) [facility] [code = COVID-19 VACCINE (1)] Future Scheduled Test Hepatitis C screening [facility] (procedure) [code = 522227813] Future Scheduled Test Screening for [facility] malignant neoplasm of cervix (procedure) [code = 938744903] Future Scheduled Test INFLUENZA VACCINE M [facility] [code = INFLUENZA VACCINE] Future Scheduled Test CHLAMYDIA SCREENING [facility] [code = CHLAMYDIA SCREENING] Encounters Start End Encounter Admission Attending Care Care Encounter Source Date/Time Date/Time Type Type Clinicians Facility Department ID 2021-01-07 Emergency [facility] [id number] Univers 07:14:20 ity of [facility] 2021-01-07 Emergency [facility] [id number] Univers 06:42:50 ity of [facility] 2021-01-07 Emergency [facility] [id number] Univers 06:25:23 ity of [facility] 2021-01-07 Emergency [facility] [id number] Univers 03:52:48 ity of [facility] 2021-01-07 Emergency [facility] [id number] Univers 03:25:06 ity of [facility] 2021-01-06 Emergency [facility] [id number] Univers 03:53:51 ity [facility] 2020-09-21 Inpatient ER TESHA, [facility] Gastro [id number] SLEH 19:23:00 JOANNE 2021-01-11 2021-01-11 [facility] 1.2.840. 114 [id number] Univers 10:24:34 10:39:34 Visit Abena Patel SURGICAL SCRUB TECH [id number] [facility] [id number] Dwayne as MATERNAL [phone] Med ical & CHILD [address] [place] [address] 2021-01-11 2021-01-11 Outpatient R [facility] [id number] Univers 10:30:00 10:30:00 [id number] ity [facility] 2021-01-11 2021-01-11 [facility] [id number] Univers 10:30:00 10:30:00 ABENA [facility] 2020-12-21 2020-12-21 [facility] 1.2.840.114 [id number] Univers 00:00:00 00:00:00 [id number] [facility] [id number] Dwayne as Jorge?Blea [phone] N[place] anselmo [address] Medical Office [facility] 2020-12-18 2020-12-18 Outpatient R JORGE [facility] [id number] Univers 09:00:00 09:00:00 ABENA [id number] [facility] 2020-12-18 2020-12-18 Outpatient R JORGE [facility] [id number] Univers 09:00:00 09:00:00 ABENA [facility] 2020-11-28 2020-11-28 Outpatient R RAFI, [facility] [id number] Univers 14:00:00 14:00:00 BILAZALIA [id number] [facility] 2020-11-26 2020-11-26 Office [facility] 1.2.840.114 [id number] Univers 07:48:27 09:58:10 Visit [facility] [id number] cassius [facility] [id number] Dwayne as Jorge?Blea [phone] Nc anselmo [address] Office [facility] 2020-11-26 2020-11-26 Outpatient RICHARD DYKES [facility] [id number] Univers 08:00:00 08:00:00 RICHARD PENNINGTON [id number] [facility] 2020-11-26 2020-11-26 Outpatient RICHARD DYKES [facility] [id number] Univers 08:00:00 08:00:00 RICHARD PENNINGTON [facility] 2020-11-20 2020-11-20 Outpatient RICHARD DYKES [facility] [id number] Univers 08:00:00 08:00:00 RICHARD PENNINGTON [id number] [facility] 2020-11-20 2020-11-20 Outpatient RICHARD DYKES [facility] [id number] Univers 08:00:00 08:00:00 RICHARD PENNINGTON [facility] 2020-11-14 2020-11-14 Telephone Aditi [facility] 1.2.840.114 [id number] Univers 00:00:00 00:00:00 Richard Foley [id number] ity [id number] [facility] [phone] Nc dicazalia nal 092 Branch [facility] 2020-11-01 2020-11-01 Office [facility] 1.2.840.114 [id number] Univers 13:43:12 14:35:39 Visit Liliana GREGORY [id number] ity of [facility] [id number] [place] [phone] Nc dicazalia BEDOYA [address] [facility] 2020-11-01 2020-11-01 Outpatient R BRAD [facility] [id number] Univers 14:00:00 14:00:00 LILIANA [id number] [facility] 2020-11-01 2020-11-01 Outpatient R BRAD [facility] [id number] Univers 14:00:00 14:00:00 LILIANA [facility] 2020-10-22 2020-10-22 Outpatient R BRAD [facility] [id number]-20 Univers 13:00:00 13:00:00 LILIANA [id number] [facility] 2020-10-19 2020-10-19 Outpatient RICHARD DYKES [facility] [id number] Univers 08:40:00 08:40:00 RICHARD PENNINGTON [facility] 2020-10-18 2020-10-18 [facility] 1.2.840.114 [id number] Univers 12:54:28 23:59:00 Encounter Lauryn Foley [id number] ity of [place].2.7.2.686 [place] [id number] [facility] 804 Branch 2020-10-18 2020-10-18 Outpatient R DESIREE [facility] [id number] Univers 13:00:00 13:00:00 LAURYN [id number] cassius o kari [facility] 2020-10-18 2020-10-18 Outpatient Bryn RAMÍREZ [facility] [id number] Univers 00:00:00 00:00:00 LAURYN pierce [facility] 2020-10-15 2020-10-15 Telephone [facility] 1.2.840.114 [id number] 00:00:00 00:00:00 Abena N SURGICAL SCRUB TECH [id number] REGIONAL [id number] MATERNAL [id number] & CHILD [address] [place] [address] 2020-10-15 2020-10-15 Telephone [facility] 1.2.840.114 [id number] Univers 00:00:00 00:00:00 Abena N SURGICAL SCRUB TECH [id number] it y of REGIONAL [id number] Dwayne as MATERNAL [phone] [facility] & CHILD [address] [place] [address] 2020-10-12 2020-10-12 [facility] 1.2.840.114 [id number] 00:00:00 00:00:00 Abena N SURGICAL SCRUB TECH [id number] REGIONAL [id number] MATERNAL [id number] & CHILD [address] [place] [address] 2020-10-12 2020-10-12 [facility] 1.2.840.114 [id number] [facility] 00:00:00 00:00:00 Abena N SURGICAL SCRUB TECH [id number] it y of REGIONAL [id number] Dwayne as MATERNAL [id number] [facility] & [address] 2020-10-11 2020-10-11 [facility] [id number] Univers 15:15:00 15:15:00 ABENA [id number] cassius [facility] 2020-10-11 2020-10-11 Outpatient Bryn PATEL [facility] [id number] Univers 15:15:00 15:15:00 ABENA hammonds [facility] 2020-10-11 2020-10-11 [facility] 1.2.840.114 [id number] 00:00:00 00:00:00 Abena N SURGICAL SCRUB TECH [id number] REGIONAL [id number] MATERNAL [id number] & CHILD [address] [place] [address] 2020-10-11 2020-10-11 Telephone [facility] 1.2.840.114 [id number] Univers 00:00:00 00:00:00 Abena Camarillo SURGICAL SCRUB TECH [id number] it y of REGIONAL [id number] Dwayne as MATERNAL [phone] [facility] & CHILD [address] [place] [address] 2020-10-09 2020-10-09 Office [facility] [id number] 15:44:08 16:29:53 Visit Abena Camarillo SURGICAL SCRUB TECH [id number] REGIONAL [id number] MATERNAL [id number] & [address] 2020-10-09 2020-10-09 Office [facility] [id number] Univers 15:44:08 16:29:53 Visit Abena Camarillo SURGICAL SCRUB TECH [id number] it y of [facility] [id number] Dwayne as MATERNAL [id number] [facility] & CHILD [address] [place] [address] 2020-10-09 2020-10-09 [facility] [id number] Univers 15:45:00 15:45:00 ABENA hammonds [facility] 2020-10-09 2020-10-09 Orders Doctor COLT 1.2.840.114 [id number] Univers 00:00:00 00:00:00 Only Unassigned, PARUL [id number] ity of [place] [facility] 4.2.7.2.686 Dwayne as [id number] [facility] 009 Branch 2020-10-08 2020-10-08 Transition Julio [facility] 1.2.840.114 [id number] Univers 00:00:00 00:00:00 of Care Mesfin Guerrero [id number] ity of [place] [id number] [facility] 403 Branch 2020-10-01 2020-10-05 Hospital Mary Rios 1.2.840.114 [id number] Univers 09:39:00 10:22:00 Encounter S Parul [id number] ity of [facility] 4.2.7.2.686 Dwayne as [id number] [facility] 098 Branch 2020-10-01 2020-10-01 Outpatient R [facility] [id number] Univers 08:30:00 08:30:00 [id number] ity of [facility] 2020-10-01 2020-10-01 Outpatient R MARY RIOS [facility] [id number] Univers 08:30:00 08:30:00 ity of [facility] 2020-10-01 2020-10-01 Orders Doctor COLT 1.2.840.114 [id number] Univers 00:00:00 00:00:00 Only Unassigned, PARUL [id number] ity of [place] [facility] 4.2.7.2.686 Dwayne as [phone] [facility] 009 Crystal 2020-09-30 2020-09-30 Orders Doctor GREGORY 1.2.840.114 [id number] Univers 00:00:00 00:00:00 Only Unassigned, PARUL [id number] ity of [place] [facility] 4.2.7.2.686 Dwayne as [id number] [facility] 009 Crystal 2020-09-28 2020-09-28 [facility] [id number] Univers 09:30:00 09:30:00 ABENA [id number] ity [facility] 2020-09-28 2020-09-28 Outpatient R JORGE [facility] [id number] Univers 09:30:00 09:30:00 ABENA ity of [facility] 2020-09-27 2020-09-27 Outpatient R [facility] [id number] Univers 11:45:00 11:45:00 [id number] ity [facility] 2020-09-26 2020-09-26 Laboratory Only, Adc Test [facility] 1.2.840. 114 [id number] Univers 12:05:49 12:20:49 Only Mary Rios [place] [id number] ity of [place].7.2.[place] [phone] [facility] 353 Branch 2020-09-26 2020-09-26 Outpatient R [facility] [id number] Univers 12:00:00 12:00:00 [id number] ity of [facility] 2020-09-26 2020-09-26 Outpatient R [facility] [id number] Univers 12:00:00 12:00:00 ity of [facility] 2020-09-26 2020-09-26 Orders Doctor GREGORY 1.2.840.114 [id number] Univers 00:00:00 00:00:00 Only Unassigned, PARUL 350.1.13.10 ity of [facility] 4.2.7.2.686 Dwayne as [id number] [facility] 009 Branch 2020-09-21 2020-09-21 Outpatient R RICHARD PENNINGTON [facility] [id number] Univers 10:00:00 10:00:00 RICHARD PENNINGTON [id number] ity of [facility] 2020-09-21 2020-09-21 Outpatient R RICHARD PENNINGTON [facility] [id number] Univers 10:00:00 10:00:00 RICHARD PENNINGTON ity of [facility] 2020-09-14 2020-09-15 Emergency Glenis, TRAUMA [id number] Univers 21:58:00 00:49:00 Cheo MOORE 350.1.13.10 ity [place].2.[place] [id number] [facility] 014 Branch 2020-09-12 2020-09-13 Emergency Kwaku, K [facility] 1.2.840.114 [id number] Univers 19:41:00 00:37:00 Yulia Foley 350.1.13.10 i ty of [place] 4.2.7.2.686 [place] [id number] [facility] 084 Branch 2020-09-12 2020-09-12 Telephone Aditi [facility] 1.2.840.114 [id number] Univers 00:00:00 00:00:00 Richard Foley 350.1.13.10 ity of [place].7.2.686 [place] Professio [phone] Nc dical [facility] 092 [facility] 2020-09-11 2020-09-11 Emergency [facility] [id number] [id number] Univers 20:23:00 22:08:00 Wong Foley 350.1.13.10 i ty of [place] 4.2.7.2.686 [facility] [id number] [address] 2020-08-31 2020-08-31 Emergency Kwaku [email or web address] 1.2.840.114 [id number] Univers 11:19:00 13:58:00 Yulia Foley 350.1.13.10 i ty of [place] 4.2.7.2.686 [facility] [id number] [address] 2020-08-29 2020-08-29 Emergency Kwaku [facility] [[email or web address]] 1.2.840.114 [id number] Univers 20:48:00 23:11:00 Yulia Foley 350.1.13.10 i ty of [place] 4.2.7.2.686 [facility] [id number] [address] 2020-06-07 2020-06-07 Office Irma [facility] 1.2.178.206 [id number] Univers 10:50:31 11:18:03 Visit Alma Estevez SURGICAL SCRUB TECH 350.1.13.10 ity [facility] 4.2.7.2.686 Dwayne as MATERNAL [phone] Med ical & CHILD 107 [facility] 2020-06-07 2020-06-07 Outpatient Bryn SOLIS [facility] [id number] Univers 11:00:00 11:00:00 ALMA [id number] cassius pierce [facility] 2020-06-07 2020-06-07 Outpatient Bryn SOLIS [facility] [id number] Univers 11:00:00 11:00:00 ALMA braxton [facility] 2020-05-29 2020-05-29 Patient Alfred [facility] 1.2.840.114 [id number] Univers 00:00:00 00:00:00 Outreach Santosh AN 350.1.13.10 i ty of [facility] 4.2.7.2.686 [place] [id number] Nc dical [address] 2020-05-13 2020-05-13 Emergency Peace Paz [facility] 1.2.840.114 [id number] Univers 19:12:00 21:45:00 Yulia [place] 350.1.13.10 i ty of [place] 4.2.7.2.686 [place] [id number] [facility] 084 Branch 2020-05-13 2020-05-13 Orders Doctor COLT 1.2.840.114 [id number] Univers 00:00:00 00:00:00 Only Unassigned, PARUL 350.1.13.10 ity of [place] [facility] 4.2.7.2.686 Dwayne as [id number] [facility] 009 Branch 2020-03-22 2020-03-22 Outpatient [facility] [id number] Univers 13:30:00 13:30:00 [id number] ity of [facility] 2020-01-19 2020-01-19 Telephone Visit, [facility] [id number] [id number] Univers 00:00:00 00:00:00 [facility] 350.1.13.10 ity of Nurse [facility] 4.2.7.2.686 Dwayne as MATERNAL [phone] [facility] & CHILD [address] [place] [address] 2020-01-17 2020-01-17 Office [facility] 1.2.840.114 [id number] Univers 13:39:45 14:25:08 Visit Trever Clemente SURGICAL SCRUB TECH 350.1.13.10 ity of [facility] 4.2.7.2.686 Dwayne as MATERNAL [id number] [facility] & CHILD [address] [place] [address] 2020-01-17 2020-01-17 [facility] [id number] -[id number] Univers 13:45:00 13:45:00 TREVER ity o f [facility] 2020-01-17 2020-01-17 Outpatient [facility] [id number] Univers 13:45:00 13:45:00 EDWARDNDA ity o f [facility] 2020-01-16 2020-01-16 Telephone Gianna [facility] 1.2.255.109 [id number] Univers 00:00:00 00:00:00 Rosshawnnda R SURGICAL SCRUB TECH 350.1.13.10 ity of [facility] 4.2.7.2.686 Dwayne as MATERNAL [phone] [facility] ical & CHILD [address] [place] [address] 2019-12-30 2019-12-30 Nurse Visit, Reddy-Rmp Nurse [facility] 1.2 .840.114 [id number] Univers 10:22:21 10:37:21 Visit Abena Paetl SURGICAL SCRUB TECH 350.1.13.10 ity of [facility] 4.2.7.2.686 Dwayne as MATERNAL [phone] [facility] & [address] 2019-12-30 2019-12-30 Outpatient R [facility] [id number] -[id number] Univers 10:30:00 10:30:00 [id number] ity of [facility] 2019-12-30 2019-12-30 Outpatient R [facility] [id number] Univers 10:30:00 10:30:00 ity of [facility] 2019-12-21 2019-12-21 [facility] 1.2.322.895 [id number] Univers 00:00:00 00:00:00 Brittanicookiea R SURGICAL SCRUB TECH 350.1.13.10 ity of [facility] 4.2.7.2.686 Dwayne as MATERNAL [phone] [facility] & CHILD [address] [place] [address] 2019-12-20 2019-12-20 Office Gianna [facility] 1.2.840.114 [id number] Univers 13:03:11 13:55:34 Visit Brittanimary R SURGICAL SCRUB TECH 350.1.13.10 ity of [facility] 4.2.7.2.686 Dwayne as MATERNAL [id number] [facility] & CHILD [address] [place] [address] 2019-12-20 2019-12-20 Outpatient [facility] [id number] -[id number] Univers 12:45:00 12:45:00 TREVER [id number] ity o f [facility] 2019-12-20 2019-12-20 Outpatient [facility] [id number] Univers 12:45:00 12:45:00 TREVER ity o f [facility] 2019-11-07 2019-11-07 Outpatient R [facility] [id number] -20 Univers 14:00:00 14:00:00 [id number] [facility] 2019-10-24 2019-10-24 Telephone [facility] 1.2.840.114 [id number] Univers 00:00:00 00:00:00 Abena Camarillo SURGICAL SCRUB TECH 350.1.13.10 it y of [facility] 4.2.7.2.686 Dwayne as MATERNAL [id number] [facility] & CHILD [address] [place] [address] 2019-10-17 2019-10-17 Outpatient R [facility] [id number] -20 Univers 15:00:00 15:00:00 [facility] 2019-10-17 2019-10-17 Outpatient R [facility] [id number] Univers 15:00:00 15:00:00 [facility] 2019-09-28 2019-09-28 Telephone [facility] 1.2.840.114 [id number] Univers 00:00:00 00:00:00 Abena Camarillo SURGICAL SCRUB TECH 350.1.13.10 it y of [facility] 4.2.7.2.686 Dwayne as MATERNAL [phone] [address] 2019-09-27 2019-09-27 Office [facility] 1.2.311.761 [id number] Univers 14:03:06 14:59:44 Visit Abena Camarillo SURGICAL SCRUB TECH 350.1.13.10 it y of [facility] 4.2.7.2.686 Dwayne as MATERNAL [phone] [facility] & [address] 2019-09-27 2019-09-27 Out[facility] [id number] 5Q-20 Univers 14:00:00 14:00:00 ABENA [id number] [facility] 2019-09-27 2019-09-27 Outpatient [facility] [id number] Univers 14:00:00 14:00:00 ABENA [facility] 2019-08-26 2019-08-26 [facility], Ang-Rmchp [facility] 1.2.840. 114 [id number] Univers 12:52:43 13:06:01 Visit Alma Solis SURGICAL SCRUB TECH 350.1.13. 10 ity [facility] 4.2.7.2.686 Dwayne as MATERNAL [id number] Med ical & CHILD [address] [place] [address] 2019-08-26 2019-08-26 Outpatient R [facility] [id number] -20 Univers 13:00:00 13:00:00 [id number] ity [facility] 2019-08-26 2019-08-26 Outpatient [facility] [id number] Univers 13:00:00 13:00:00 ALMA hammonds o f [facility] 2019-08-19 2019-08-19 Outpatient R [facility] [id number] -20 Univers 13:00:00 13:00:00 [id number] ity [facility] 2019-08-19 2019-08-19 Outpatient R [facility] [id number] Univers 13:00:00 13:00:00 ity of [facility] 2019-08-18 2019-08-18 Outpatient R [facility] [id number] -20 Univers 13:00:00 13:00:00 [id number] ity [facility] 2019-08-18 2019-08-18 Outpatient R [facility] [id number] Univers 13:00:00 13:00:00 ity [facility] 2019-08-18 2019-08-18 Emergency [facility] [id number] Univers 08:24:15 11:52:00 RAVEN [facility] 2019-08-18 2019-08-18 Emergency [facility] 1.2.132.809 [id number] Univers 08:24:15 11:52:00 Raven Foley 350.1.13.10 i ty of [place] 4.2.7.2.686 [facility] [id number] [address] 2019-08-18 2019-08-18 Orders Doctor COLT 1.2.840.114 [id number] Univers 00:00:00 00:00:00 Only Unassigned, PARUL 350.1.13.10 ity of [facility] 4.2.7.2.686 Dwayne as [phone] [facility] [address] 2019-07-31 2019-07-31 Telephone COLT Miramontes 1.2.597.570 [id number] Univers 00:00:00 00:00:00 Gabbierosa CAT 350.1.13.10 i ty of [facility] 4.2.7.2.686 Dwayne as [phone] [facility] [address] 2019-07-28 2019-07-29 Emergency [facility] [id number] Univers 18:06:33 00:02:00 SHINTA [facility] 2019-07-28 2019-07-29 Emergency [facility] 1.2.840.114 [id number] Univers 18:06:33 00:02:00 [facility] [place] 350.1.13.10 i ty of [place] [id number] [facility] [address] 2019-07-18 2019-07-18 Telemedici [facility] 1.2.840.114 [id number] Univers 12:55:14 14:20:25 ne Visit Alma Estevez SURGICAL SCRUB TECH 350.1.13.10 ity [place] [address].7.2.686 Dwayne as MATERNAL [phone] Med ical & CHILD [address] [place] [address] 2019-07-18 2019-07-18 Outpatient [facility] [id number] 5Q-[id number] Univers 14:00:00 14:00:00 ALMA [id number] ity o f [facility] 2019-07-18 2019-07-18 Outpatient R AKINSIPE, [facility] [id number] Univers 14:00:00 14:00:00 ALMA ity o f [facility] 2019-06-27 2019-06-27 Outpatient R [facility] [id number] -20 Univers 15:30:00 15:30:00 [id number] [facility] 2019-06-27 2019-06-27 Outpatient R [facility] [id number] Univers 15:30:00 15:30:00 [facility] 2019-06-26 2019-06-26 Emergency X CIARA [facility] ERT [id number] Univers 19:06:29 21:03:00 LORY ity [facility] 2019-06-26 2019-06-26 Emergency Pimentel, [facility] 1.2.840.114 [id number] Univers 19:06:29 21:03:00 Lory Uriostegui [facility] 350.1.13.10 [place]y [place] [phone] [address] ([facility]) 2019-06-26 2019-06-26 [facility] 1.2.840.114 [id number] Univers 00:00:00 00:00:00 Alma C SURGICAL SCRUB TECH 350.1.13.10 ity of [facility] 4.2.7.2.686 Dwayne as MATERNAL [phone] Med ical & CHILD [address] [place] [address] 2019-06-24 2019-06-24 Outpatient R [facility] [id number] -[id number] Univers 09:30:00 09:30:00 [id number] ity [facility] 2019-06-24 2019-06-24 Outpatient R [facility] [id number] Univers 09:30:00 09:30:00 ity [facility] 2019-06-23 2019-06-23 Telemedici [facility] 1.2.840.114 [id number] Univers 12:57:38 15:49:57 ne Visit Alma Estevez SURGICAL SCRUB TECH 350.1.13.10 ity of [facility] 4.2.7.2.686 Dwayne as MATERNAL [id number] [facility] [address] 2019-06-23 2019-06-23 Outpatient IRMA, [facility] [id number] 5Q-[id number] Univers 15:30:00 15:30:00 ALMA [id number] ity o f [facility] 2019-06-23 2019-06-23 Outpatient [facility] [id number] Univers 15:30:00 15:30:00 ALMA hammonds o f [facility] 2019-06-22 2019-06-22 Outpatient [facility] [id number] Univers 13:30:00 13:30:00 ABENA ityolie [facility] 2019-06-22 2019-06-22 Outpatient [facility] [id number] -20 Univers 09:00:00 09:00:00 [id number] ity of [facility] 2019-06-22 2019-06-22 Telephone Visit, [facility] 1.2.733.094 [id number] Univers 00:00:00 00:00:00 [facility] SURGICAL SCRUB TECH 350.1.13.10 ity of Nurse REGIONAL 4.2.7.2.686 Dwayne as MATERNAL [id number] Med ical & CHILD [address] [place] [address] 2019-06-22 2019-06-22 Refill Doctor [facility] 1.2.840.114 [id number] Univers 00:00:00 00:00:00 Unassigned, SURGICAL SCRUB TECH 350.1.13.10 ity of [place] REGIONAL 4.2.7.2.686 Dwayne as MATERNAL [id number] [facility] ical & CHILD [address] [place] [address] 2019-06-21 2019-06-21 [facility], [facility] 1.2.840. 114 [id number] Univers 13:00:32 13:15:32 Visit Alma Solis SURGICAL SCRUB TECH 350.1.13. 10 ity of [facility] 4.2.7.2.686 Dwayne as MATERNAL [id number] [facility] & CHILD [address] [place] [address] 2019-06-21 2019-06-21 Outpatient [facility] [id number] -[id number] Univers 10:30:00 10:30:00 [id number] ity of [facility] 2019-06-21 2019-06-21 Outpatient [facility] [id number] Univers 10:30:00 10:30:00 ALMA hammonds o f [facility] 2019-06-21 2019-06-21 [facility] 1.2.840.114 [id number] Univers 00:00:00 00:00:00 Abena Camarillo SURGICAL SCRUB TECH 350.1.13.10 it y of [facility] 4.2.7.2.686 Dwayne as MATERNAL [phone] [facility] CHILD [address] [place] [address] 2019-06-20 2019-06-20 Telephone [facility] 1.2.840.114 [id number] Univers 00:00:00 00:00:00 Abena N SURGICAL SCRUB TECH 350.1.13.10 it y of [facility] 4.2.7.2.686 Dwayne as MATERNAL [phone] Med ical & CHILD [address] [place] [address] 2019-06-10 2019-06-10 Telephone [facility] 1.2.840.114 [id number] Univers 00:00:00 00:00:00 Abena N SURGICAL SCRUB TECH 350.1.13.10 it y of [facility] 4.2.7.2.686 Dwayne as MATERNAL [id number] Med ical & CHILD [address] [place] [address] 2019-05-20 2019-05-20 Telephone [facility] 1.2.840.114 [id number] Univers 00:00:00 00:00:00 Abena N SURGICAL SCRUB TECH 350.1.13.10 it y of [facility] 4.2.7.2.686 Dwayne as MATERNAL [id number] Med ical & CHILD [address] [place] [address] 2019-05-19 2019-05-19 Telephone [facility] 1.2.840.114 [id number] Univers 00:00:00 00:00:00 Abnea N SURGICAL SCRUB TECH 350.1.13.10 it y of [facility] 4.2.7.2.686 Dwayne as MATERNAL [id number] Med ical & CHILD [address] [place] [address] 2019-05-17 2019-05-17 Office [facility] 1.2.858.855 [id number] Univers 13:24:09 13:50:08 Visit Abena N SURGICAL SCRUB TECH 350.1.13.10 it y of [place] 4.2.7.2.686 [place]wayne as MATERNAL [id number] Med ical & CHILD [address] [place] [address] 2019-05-17 2019-05-17 Outpatient Bryn PATEL [facility] [id number] 5Q-20 Univers 13:30:00 13:30:00 ABENA hammonds [facility] 2019-05-17 2019-05-17 Outpatient Bryn PATEL [facility] [id number] Univers 13:30:00 13:30:00 ABENA hammonds [facility] 2019-05-06 2019-05-06 Outpatient Bryn KATZ [facility] [id number] -[id number] Univers 08:15:00 08:15:00 TREVER [id number] ity o f [facility] 2019-05-06 2019-05-06 Outpatient R GIANNA [facility] [id number] Univers 08:15:00 08:15:00 TREVER ity o f [facility] 2019-04-20 2019-04-20 Emergency Peace Paz [facility] 1.2.840.114 [id number] Univers 11:02:10 14:18:00 [facility] 350.1.13.10 i ty of [place] 4.[place].2.[place] [id number] [address] 2019-03-29 2019-03-29 Telephone Gianna [facility] 1.2.880.359 [id number] Univers 00:00:00 00:00:00 Trever R SURGICAL SCRUB TECH 350.1.13.10 ity of [place] 4.2.7.2.686 Dwayne as MATERNAL [id number] [facility] ical & CHILD [address] [place] [address] 2019-03-22 2019-03-22 Telephone Gianna [facility] 1.2.166.901 [id number] Univers 00:00:00 00:00:00 Nimaa R SURGICAL SCRUB TECH 350.1.13.10 ity of [facility] 4.2.7.2.686 Dwayne as MATERNAL [id number] [address] 2019-03-21 2019-03-21 Office Gianna [facility] 1.2.840.114 [id number] Univers 15:39:38 16:25:05 Visit Trever R SURGICAL SCRUB TECH 350.1.13.10 ity of [place] 4.2.7.2.686 [place]way[place] as MATERNAL [phone] [facility] & [address] Results Test Description Test Test Results Result Source Time Comments Comments MR BRAIN W WO 2020-10- Normal MRI of the Uni versity of CONTRAST 12 brain.. NeuroQuant [facility] 21:16:55 Hippocampal Asymmetry [facility] Report demonstrates Normal Scan: Does notsupport the [...] volumetry of the brain was performed using NeuroQuant([employer], [place], [place]) software package. The NeuroQuantanalysis was based on [...] were within 2 SD of the mean. [facility], Radiant Results Inft User - 10/18/2020 4:18 PM CDT MR BRAIN W WO CONTRASTCOMPARISON: MR brain 11/24/2017.HISTORY: seizures TECHNIQUE: Seizure protocol MRI of the brain was performed prior to andafter intravenous contrast administration. Quantitative volumetry of the brain was performed using NeuroQuant([employer], [place], [place]) software package. The NeuroQuantanalysis was based on [...] Item Value Reference Range Interpretation Comme nts [place] (test code = 7826487917) 0.8 mmol/L 0.6-1.2 MARCELLE (test code = MARCELLE) Toxic Range: ? Greater than 1.2 mmol/L Lab Interpretation (test code = 58852-7) [id number] 18:22:00 Test Item Value Reference Range Interpretation Comments LITHIUM LEVEL (BEAKER) 0.8 mmol/L 0.8-1.2 (test code = 630) SCAN RESULT (test code = See Scanned Report [id number]) MA, [id number] 14:13:01Reason for exam:->abnormal imaging [facility] : 1995 Sex: FFluoroscopic unit utilized for a procedure performed in the OR. No interpretation was requested. Refer to the operative report for findings. Refer to PACS for patient radiation dose information.COMPREHENSIVE METABOLIC [id number] 06:43:00 Test Item Value Reference Range Interpretation [...] S NOT APPLICABLE FOR DIALYSIS PATIEN TS. Regulatory Associate ID - [place] MCBC (HEMOGRAM ONLY)2020-09-24 06:04:00 [...] (BEAKER) (test code = 413) COMPREHENSIVE METABOLIC [id number] 07:06:00 Test Item Value Reference Range Interpretation [...] S NOT APPLICABLE FOR DIALYSIS PATIEN TS. Regulatory Associate ID - PIAYA LCBC (HEMOGRAM ONLY)2020-09-23 06:47:00 [...] (BEAKER) (test code = 413) COMPREHENSIVE METABOLIC [id number] 08:27:00 Test Item Value Reference Range Interpretation [...] S NOT APPLICABLE FOR DIALYSIS PATIEN TS. Regulatory Associate ID - [place] [id number] 08:27:00 Test Item Value Reference Range Interpretation Comments MAGNESIUM (BEAKER) (test code = 2.4 mg/dL 1.6-2.6 627) Regulatory Associate ID - [place] MPROTHROMBIN [id number] 07:59:00 Test Item Value Reference Range Interpretation Comments PROTIME (BEAKER) 13.0 seconds 11.9-14.2 (test code = 759) INR (BEAKER) (test 1.00 See_Comment [Automat ed message] code = 370) The system [employer] generated this result transmitted ref erence range: [...] code = 2801) DRUG SCREEN PANEL 2 [id number] 05:19:56 Test Item Value Reference Range Interpretation Comments AMPHET (test code = Negative Negative 1204765279) VALERIE U (test code = Negative Negative 7621582894) BENZO U (test code = Negative Negative 8901927482) Cocaine Metabolite (test Negative Negative code = 1170827613) METHADONE (test code = Negative Negative 0031810671) OPIATES (test code = Negative Negative 6379750014) PCP (test code = Negative Negative 4561585872) THC (test code = Negative Negative 3730384851) MARCELLE (test code = MARCELLE) Urine Drug [...] testing). Lab Interpretation (test Normal code = 23553-7) [facility] WITH [id number] 04:55:16 Test Item Value Reference Range Interpretation [...] RDW-SD (test code = 41.8 fL 39.0-49.9 72530-2) RDW-CV (test code = 12.7 % 12.0-15.5 788-0) PLT (test code = See_Comment [Automated 777-3) message] The sy stem which generated this result transmitted reference range : 166 - 358 10*3/ ?L. The reference r david was not used to interpret this result as normal/abnormal . MPV (test code = 9.3 fL 9.5-12.9 L 27342-8) NRBC/100 WBC (test See_Comment [Automat ed code = 7395033756) message] The system which generated this result transmitted reference range : 0.0 - 10.0 /100 WBCs. The refer ence range was not u sed to interpret th is result as normal/abnormal . NRBC x10^3 (test code <0.01 See_Comment [Auto mated = 0591840964) message] The s ystem which generated this result transmitted reference range : 10*3/?L. The reference range was not used to interpret this result as normal/abnormal . GRAN MAT (NEUT) % 54.5 % (test code = 770-8) IMM GRAN % (test code 1.10 % = 4460738681) LYMPH % (test code = 36.2 % 736-9) MONO % (test code = 6.8 % 5905-5) EOS % (test code = 1.2 % 713-8) BASO % (test code = 0.2 % 706-2) GRAN MAT x10^3(ANC) 6.13 10*3/uL 1.88-7.09 (test code = 9779890182) IMM GRAN x10^3 (test 0.12 10*3/uL 0.00-0.06 H code = 6857309497) LYMPH x10^3 (test code 4.07 10*3/uL 1.32-3.29 H = 731-0) MONO x10^3 (test code 0.76 10*3/uL 0.33-0.92 = 742-7) EOS x10^3 (test code = 0.14 10*3/uL 0.03-0.39 711-2) BASO x10^3 (test code <0.03 0.01-0.07 = 704-7) Lab Interpretation Abnormal (test code = 69269-6) [id number] 04:50:00 Test Item Value Reference Range Interpretation Comments POCT PREG (test code = 1605) negative POCT PREG LOT # (test code = 3575) [id number] POCT PREG TEST DATE (test 03-08-2022 code = 3576) Lab Interpretation (test code = Normal 57080-1) [facility]2021-[facility]-10 04:44:46 Test Item Value Reference Range Interpretation Comments APPEARANCE (test code = Clear Clear 4753056703) COLOR (test code = Straw Yellow A 7524694761) PH (test code = 4.8-8.0 4697713439) SP GRAVITY (test code = 1.003-1.030 4136986887) GLU U QUAL (test code = Normal Normal 0743668554) BLOOD (test code = Negative Negative 6121015636) KETONES (test code = Negative Negative 5862128296) PROTEIN (test code = Negative Negative 2887-8) UROBILIN (test code = Normal Normal 0764120221) BILIRUBIN (test code = Negative Negative 2650754177) NITRITE (test code = Negative Negative 0966175499) LEUK WILBERT (test code = Negative Negative 6495973380) RBC/HPF (test code = See_Comment [Autom ated message] 5328833424) The system [employer] generated this result transmitted ref erence range: 0 - 3 HP F. The reference range was not used to int erpret this result as normal/abnormal . WBC/HPF (test code = See_Comment [Autom ated message] 8844887701) The system [employer] generated this result transmitted ref erence range: 0 - 5 HP F. The reference range was not used to int erpret this result as normal/abnormal . BACTERIA (test code = Negative Negative 6536398997) SQ EPITH (test code = See_Comment H [Auto mated message] 9293482546) The system [employer] generated this result transmitted ref erence range: <=2 HPF. The reference range was not used to int erpret this result as normal/abnormal . Lab Interpretation (test Abnormal code = 14784-1) [facility]2021-[facility] 04:38:17 Test Item Value Reference Range Interpretation Comments ALCOHOL (test code = <10 mg/dL 3693066106) MARCELLE (test code = Toxic Greater than or MARCELLE) equal to 80 mg/dL. NOTE: Whole blood values are approximately 10% to 15% lower than serum and plasma. [facility] CenterCREATINE [id number] 04:38:12 Test Item Value Reference Range Interpretation Comments CK (test code = 2313828030) <20 33-194 L Lab Interpretation (test code = Abnormal 54218-4) [facility] CenterCOMP. METABOLIC PANEL (04589)2020-09-15 04:38:07 Test Item Value Reference Range Interpretation Comments NA (test code = 141 mmol/L 135-145 2273669527) K (test code = 3.7 mmol/L 3.5-5.0 5434215519) CL (test code = 108 mmol/L 98-108 8699243536) CO2 TOTAL (test code = 25 mmol/L 23-31 0034237507) AGAP (test code = 2-16 8260891103) BUN (test code = 9 mg/dL 7-23 7472481057) GLUCOSE (test code = 89 mg/dL 70-110 4116717314) CREATININE (test code = 0.54 mg/dL 0.50-1.04 9237228809) TOTAL BILI (test code = <0.1 0.1-1.1 L 7903146199) CALCIUM (test code = 9.0 mg/dL 8.6-10.6 4526231009) T PROTEIN (test code = 5.8 g/dL 6.3-8.2 L 1175968656) ALBUMIN (test code = 3.4 g/dL 3.5-5.0 L 5343745096) ALK PHOS (test code = 71 U/L 34-122 6419884067) ALTv (test code = 13 U/L 5-35 2-6) AST(SGOT) (test code = 18 U/L 13-40 9165788875) eGFR (test code = mL/min/1.73m2 7164583617) MARCELLE (test code = MARCELLE) Association of [...] tests). Lab Interpretation Abnormal (test code = 29447-9) [facility] CenterUrinalysis2021-06-25 17:30:33 Test Item Value Reference Range Interpretation Comments APPEARANCE (test code = Hazy Clear A 7827168795) COLOR (test code = Straw Yellow A 7064749538) PH (test code = 4.8-8.0 1034436932) SP GRAVITY (test code = 1.003-1.030 3194843943) GLU U QUAL (test code = Normal Normal 6265299664) BLOOD (test code = Negative Negative 1080140857) KETONES (test code = Negative Negative 3555409485) PROTEIN (test code = Negative Negative 2887-8) UROBILIN (test code = Normal Normal 3350546167) BILIRUBIN (test code = Negative Negative 4626858879) NITRITE (test code = Negative Negative 4720879813) LEUK WILBERT (test code = 500/uL Negative A 0832956356) RBC/HPF (test code = See_Comment [Autom ated message] 5558273156) The system [employer] generated this result transmitted ref erence range: 0 - 3 HP F. The reference range was not used to int erpret this result as normal/abnormal . WBC/HPF (test code = See_Comment H [Autom ated message] [id number]) The system [employer] generated this result transmitted ref erence range: 0 - 5 HP F. The reference range was not used to int erpret this result as normal/abnormal . BACTERIA (test code = Few Negative A [id number]) SQ EPITH (test code = HPF [id number]) WBC CLUMPS (test code = See_Comment H [Au tomated message] [id number]) The system [employer] generated this result transmitted ref erence range: <=1 HPF. The reference range was not used to int erpret this result as normal/abnormal . Lab Interpretation (test Abnormal code = 00099-0) [facility] [id number] 17:08:00 Test Item Value Reference Range Interpretation Comments POCT PREG (test code = 1605) negative On board controls acceptable with present C Line (test code = 3574) POCT PREG LOT # (test code = 3577) [id number] POCT PREG TEST DATE (test code = 3576) Lab Interpretation (test code = Normal 19676-0) [facility]. Metabolic Panel (58222)2020-08-31 16:55:49 Test Item Value Reference Range Interpretation Comments NA (test code = 141 mmol/L 135-145 5363279635) K (test code = 3.9 mmol/L 3.5-5.0 8480845266) CL (test code = 106 mmol/L 98-108 7359370098) CO2 TOTAL (test code = 27 mmol/L 23-31 0083574841) AGAP (test code = 2-16 5976459601) BUN (test code = 5 mg/dL 7-23 L 6178335067) GLUCOSE (test code = 91 mg/dL 70-110 1614673217) CREATININE (test code = 0.68 mg/dL 0.50-1.04 6282581883) TOTAL BILI (test code = 0.2 mg/dL 0.1-1.7 5550684103) CALCIUM (test code = 10.0 mg/dL 8.6-10.6 1008895439) T PROTEIN (test code = 7.2 g/dL 6.3-8.2 2275981003) ALBUMIN (test code = 4.3 g/dL 3.5-5.0 5888574105) ALK PHOS (test code = 75 U/L 34-122 9040656561) ALTv (test code = 14 U/L 5-35 1742-6) AST(SGOT) (test code = 30 U/L 13-40 5317308169) eGFR (test code = mL/min/1.73m2 0214284167) MARCELLE (test code = MARCELLE) Association of [...] tests). Lab Interpretation Abnormal (test code = 04996-4) [facility] with [id number] 16:51:47 Test Item Value Reference Range Interpretation Comments WBC (test code = See_Comment [Automated 3850-2) message] The sy stem which generated this result transmitted reference range : 4.30 - 11.10 10*3/?L. The reference range was not used to interpret this result as normal/abnormal . RBC (test code = See_Comment [Automated 559-8) message] The sy stem which generated this [...] RDW-SD (test code = 43.1 fL 39.0-49.9 62763-4) RDW-CV (test code = 13.1 % 12.0-15.5 788-0) PLT (test code = See_Comment [Automated 777-3) message] The sy stem which generated this result transmitted reference range : 166 - 358 10*3/ ?L. The reference r david was not used to interpret this result as normal/abnormal . MPV (test code = 10.3 fL 9.5-12.9 74498-5) NRBC/100 WBC (test See_Comment [Automat ed code = 7391721451) message] The system which generated this result transmitted reference range : 0.0 - 10.0 /100 WBCs. The refer ence range was not u sed to interpret th is result as normal/abnormal . NRBC x10^3 (test code <0.01 See_Comment [Auto mated = 8122961969) message] The s ystem which generated this result transmitted reference range : 10*3/?L. The reference range was not used to interpret this result as normal/abnormal . GRAN MAT (NEUT) % 70.5 % (test code = 770-8) IMM GRAN % (test code 0.70 % = 9663868998) LYMPH % (test code = 19.0 % 736-9) MONO % (test code = 8.8 % 5905-5) EOS % (test code = 0.7 % 713-8) BASO % (test code = 0.3 % 706-2) GRAN MAT x10^3(ANC) 4.96 10*3/uL 1.88-7.09 (test code = 2977273630) IMM GRAN x10^3 (test 0.05 10*3/uL 0.00-0.06 code = 9310280937) LYMPH x10^3 (test code 1.34 10*3/uL 1.32-3.29 = 731-0) MONO x10^3 (test code 0.62 10*3/uL 0.33-0.92 = 742-7) EOS x10^3 (test code = 0.05 10*3/uL 0.03-0.39 711-2) BASO x10^3 (test code <0.03 0.01-0.07 = 704-7) Lab Interpretation Abnormal (test code = 84136-1) [facility] Center[facility] Acid Whole [id number] 16:37:28 Test Item Value Reference Range Interpretation Comments LACTIC ACID (test code = 1.74 mmol/L 0.50-2.20 7709382920) Lab Interpretation (test code = Normal 71913-8) [facility]IN[facility]IS2021-[facility]-24 03:04:28 Test Item Value Reference Range Interpretation Comments APPEARANCE (test code = Clear Clear 2142893714) COLOR (test code = Colorless Yellow A 0838328411) PH (test code = 4.8-8.0 9352754495) SP GRAVITY (test code = 1.003-1.030 8385033795) GLU U QUAL (test code = Normal Normal 2601582518) BLOOD (test code = 2+ Negative A 1301487180) KETONES (test code = Negative Negative 0295260262) PROTEIN (test code = Negative Negative 2887-8) UROBILIN (test code = Normal Normal 6400323823) BILIRUBIN (test code = Negative Negative 8648739908) NITRITE (test code = Negative Negative 0224279668) LEUK WILBERT (test code = Negative Negative 7421566321) RBC/HPF (test code = See_Comment [Autom ated message] 7420847381) The system [employer] generated this result transmit con reference range : 0 - 3 HPF. The refe rence range was not u sed to interpret th is result as normal/abnormal . WBC/HPF (test code = <1 See_Comment [Autom ated message] 7812447138) The system [employer] generated this result transmit con reference range : 0 - 5 HPF. The refe rence range was not u sed to interpret th is result as normal/abnormal . BACTERIA (test code = Few Negative A 9756690486) SQ EPITH (test code = HPF 3453526636) Lab Interpretation (test Abnormal code = 44235-1) [facility] [id number] 02:44:00 Test Item Value Reference Range Interpretation Comments POCT PREG (test code = 1605) negative On board controls acceptable with present C Line (test code = 3574) POCT PREG LOT # (test code = 3575) [id number] POCT PREG TEST DATE (test 2022-03-08 code = 3576) Lab Interpretation (test code = Normal 70910-9) [facility]OVID[facility] (ID NOW RAPID TESTING)2020-08-30 02:29:07 Test Item Value Reference Range Interpretation Comments SARS-CoV-2 Rapid ID NOW Positive Not Detected A (test code = 10312-9) MARCELLE (test code = MARCELLE) ID NOW COVID-19 Assay is an isothermal nucleic acid amplification test intended for the qualitative detection of nucleic acid from SARS-CoV-2 viral RNA in nasopharyngeal ([employer]) specimens. It is used under Emergency Use [...] indicated. Lab Interpretation Abnormal (test code = 80955-5) [facility] URINALYSIS W/O SPECIFIC [id number] 16:04:00 Test Item Value Reference Range Interpretation [...] code = 3257) Trace [facility] - [facility] [id number] 16:04:00 Test Item Value Reference Range Interpretation [...] code = 3257) Trace Negative - Negative [facility] W/O SPECIFIC [id number] 16:04:00 Test Item Value Reference Range Interpretation [...] code = 3257) Trace Negative - Negative [facility]2021-[facility]-08 02:02:48 Test Item Value Reference Range Interpretation Comments APPEARANCE (test code = Cloudy Clear A 1521616199) COLOR (test code = Yellow Yellow 6392925450) PH (test code = 4.8-8.0 3400428407) SP GRAVITY (test code = 1.003-1.030 4395280020) GLU U QUAL (test code = Normal Normal 0899653234) BLOOD (test code = 2+ Negative A 4593274984) KETONES (test code = Negative Negative 3744097924) PROTEIN (test code = 100 mg/dL Negative A 2887-8) UROBILIN (test code = Normal Normal 7705962922) BILIRUBIN (test code = Negative Negative 0485927236) NITRITE (test code = Negative Negative 3379093375) LEUK WILBERT (test code = 500/uL Negative A 6713068071) RBC/HPF (test code = See_Comment H [Autom ated message] 8457195965) The system [employer] generated this result transmit con reference range : 0 - 3 HPF. The refe rence range was not u sed to interpret th is result as normal/abnormal . WBC/HPF (test code = >182 See_Comment H [Autom ated message] 4553795984) The system [employer] generated this result transmit con reference range : 0 - 5 HPF. The refe rence range was not u sed to interpret th is result as normal/abnormal . BACTERIA (test code = Few Negative A 6756559245) MUCOUS (test code = Slight Negative LPF A 2732206566) SQ EPITH (test code = HPF 9316321094) WBC CLUMPS (test code = See_Comment H [Au tomated message] 3940527809) The system [employer] generated this result transmit con reference range : <=1 HPF. The refere nce range was not u sed to interpret th is result as normal/abnormal . Lab Interpretation (test Abnormal code = 65968-4) [facility] Metabolic [id number] 02:00:26 Test Item Value Reference Range Interpretation Comments NA (test code = 139 mmol/L 135-145 6041636879) K (test code = 4.1 mmol/L 3.5-5.0 1991471076) CL (test code = 99 mmol/L 98-108 4963337990) CO2 TOTAL (test code = 32 mmol/L 23-31 H 6279501872) AGAP (test code = 2-16 3996029276) BUN (test code = 4 mg/dL 7-23 L 8390030564) GLUCOSE (test code = 102 mg/dL 70-110 5313325991) CREATININE (test code = 0.63 mg/dL 0.50-1.04 7344137035) TOTAL BILI (test code = 0.8 mg/dL 0.1-1.7 5373970184) CALCIUM (test code = 10.2 mg/dL 8.6-10.6 4812320262) T PROTEIN (test code = 8.3 g/dL 6.3-8.2 H 0555962301) ALBUMIN (test code = 5.3 g/dL 3.5-5.0 H 5548888576) ALK PHOS (test code = 80 U/L 34-122 2078147071) ALTv (test code = 13 U/L 5-35 1742-6) AST(SGOT) (test code = 24 U/L 13-40 7144129116) eGFR Calculation mL/min/1.73m2 (Non-) (test code = 9524654014) eGFR Calculation mL/min/1.73m2 () (test code = 4280270718) MARCELLE (test code = MARCELLE) Association of [...] tests). Lab Interpretation Abnormal (test code = 31096-7) [facility] with [id number] 01:59:51 Test Item Value Reference Range Interpretation Comments WBC (test code = See_Comment H [Automated 0040-2) message] The system which generated this result transmit con reference range : 4.30 - 11.10 10*3/?L. The reference range was not used to interpret this result as normal/abnormal . RBC (test code = See_Comment [Automated 401-2) message] The system which generated this result [...] RDW-SD (test code = 40.9 fL 39.0-49.9 41475-3) RDW-CV (test code = 12.4 % 12.0-15.5 788-0) PLT (test code = See_Comment [Automated 777-3) message] The system which generated this result transmit con reference range : 166 - 358 10*3/ ?L. The reference range was not u sed to interpret th is result as normal/abnormal . MPV (test code = 10.1 fL 9.5-12.9 04986-2) NRBC/100 WBC (test See_Comment [Automat ed code = 3703744495) message] The system which generated this result transmit con reference range : 0.0 - 10.0 /100 WBCs. The reference range was not used to interpret this result as normal/abnormal . NRBC x10^3 (test code <0.01 See_Comment [Auto mated = 2194395165) message] The system which generated this result transmit con reference range : 10*3/?L. The reference range was not used to interpret this result as normal/abnormal . GRAN MAT (NEUT) % 78.8 % (test code = 770-8) IMM GRAN % (test code 1.00 % = 6885077777) LYMPH % (test code = 12.8 % 736-9) MONO % (test code = 6.5 % 5905-5) EOS % (test code = 0.5 % 713-8) BASO % (test code = 0.4 % 706-2) GRAN MAT x10^3(ANC) 15.38 10*3/uL 1.88-7.09 H (test code = 1144934720) IMM GRAN x10^3 (test 0.19 10*3/uL 0.00-0.06 H code = 4456827079) LYMPH x10^3 (test code 2.49 10*3/uL 1.32-3.29 = 731-0) MONO x10^3 (test code 1.26 10*3/uL 0.33-0.92 H = 742-7) EOS x10^3 (test code = 0.09 10*3/uL 0.03-0.39 711-2) BASO x10^3 (test code 0.07 10*3/uL 0.01-0.07 = 704-7) Lab Interpretation Abnormal (test code = 86812-1) [facility] [id number] 01:08:00 Test Item Value Reference Range Interpretation Comments POCT PREG (test code = 1605) negative On board controls acceptable with positive C Line (test code = 3574) POCT PREG LOT # (test code = 3575) [id number] POCT PREG TEST DATE (test 12/06/2021 code = 3576) Lab Interpretation (test code = Normal 63174-6) [facility] URINALYSIS W/O SPECIFIC [id number] 19:59:00 Test Item Value Reference Range Interpretation [...] code = 3257) negative Negative - Negative [facility] URINALYSIS W/O SPECIFIC [id number] 19:59:00 Test Item Value Reference Range Interpretation [...] code = 3257) negative Negative - Negative [facility] [id number] 19:41:00 Test Item Value Reference Range Interpretation Comments POCT PREG (test code = 1605) Negative On board controls acceptable with C Yes Line (test code = 3574) POCT PREG LOT # (test code = 3575) POCT PREG TEST DATE (test code = 3576) [facility] [id number] 19:41:00 Test Item Value Reference Range Interpretation Comments POCT PREG (test code = 1605) Negative On board controls acceptable with C Yes Line (test code = 3574) POCT PREG LOT # (test code = 3575) POCT PREG TEST DATE (test code = 3576) [facility] 1 [id number] 15:44:00HISTORY: Cough. TECHNIQUE: Portable AP erect view of the chest is obtained. Comparison madewith 07/28/2019 study. FINDINGS: No acute pneumonia. No pneumothorax or pleural effusion orpulmonary congestiondetected. Cardiac size is within normal limits. Smallcalcified granulomas are suspected in left middle and lower lung zones. CONCLUSIONS: No signs of acute cardiopulmonary disease.[facility], [employer] User - 08/18/2019 10:45 AM CDTHISTORY: Cough.TECHNIQUE: Portable AP erect view of the chest is obtained. Comparison madewith 07/28/2019 study.FINDINGS: No acute pneumonia. No pneumothorax or pleural effusion orpulmonary congestion detected. Cardiac size is within normal limits. Smallcalcified granulomas are suspected in left middle and lower lung zones.CONCLUSIONS: No signs of acute cardiopulmonary disease.[facility] WITH [id number] 15:25:00 Test Item Value Reference Range Interpretation Comments WBC (test code = See_Comment H [Automated 6986-2) message] The sy stem which generated this result transmitted reference range : 4.30 - 11.10 10*3/?L. The reference range was not used to interpret this result as normal/abnormal . RBC (test code = See_Comment [Automated 979-8) message] The sy stem which generated this [...] RDW-SD (test code = 42.2 fL 39-49.9 60148-0) RDW-CV (test code = 13.1 % 12-15.5 788-0) PLT (test code = See_Comment H [Automated 777-3) message] The sy stem which generated this result transmitted reference range : 166 - 358 10*3/ ?L. The reference r david was not used to interpret this result as normal/abnormal . MPV (test code = 10.3 fL 9.5-12.9 48020-0) NRBC/100 WBC (test See_Comment [Automat ed code = 4525565846) message] The system which generated this result transmitted reference range : 0.0 - 10.0 /100 WBCs. The refer ence range was not u sed to interpret th is result as normal/abnormal . NRBC x10^3 (test code <0.01 See_Comment [Auto mated = 9184882853) message] The s ystem which generated this result transmitted reference range : 10*3/?L. The reference range was not used to interpret this result as normal/abnormal . GRAN MAT (NEUT) % 57.0 % (test code = 770-8) IMM GRAN % (test code 0.90 % = 5542377295) LYMPH % (test code = 31.7 % 736-9) MONO % (test code = 8.1 % 5905-5) EOS % (test code = 1.8 % 713-8) BASO % (test code = 0.5 % 706-2) GRAN MAT x10^3(ANC) 7.49 10*3/uL 1.88-7.09 H (test code = 7453459061) IMM GRAN x10^3 (test 0.12 10*3/uL 0-0.06 H code = 5936020814) LYMPH x10^3 (test code 4.16 10*3/uL 1.32-3.29 H = 731-0) MONO x10^3 (test code 1.07 10*3/uL 0.33-0.92 H = 742-7) EOS x10^3 (test code = 0.23 10*3/uL 0.03-0.39 711-2) BASO x10^3 (test code 0.06 10*3/uL 0.01-0.07 = 704-7) Lab Interpretation Abnormal (test code = 40836-4) [facility] TEST, [id number] 14:52:00 Test Item Value Reference Range Interpretation Comments PREG SERUM (test code Negative = 8295408154) MARCELLE (test code = MARCELLE) Less than 10 IU/L. ?If low titer or ectopic is suspected, resubmit specimen in 48-72 hours. [facility] Metabolic Panel (NA, K, CL, CO2, GLUCOSE, BUN, CREATININE, CA)2019-08-18 14:48:00 Test Item Value Reference Range Interpretation Comments NA (test code = 141 mmol/L 135-145 5304747260) K (test code = 3.9 mmol/L 3.5-5 6557242636) CL (test code = 111 mmol/L 98-108 H 5732733929) CO2 TOTAL (test code = 21 mmol/L 23-31 L 5129659123) AGAP (test code = 2-16 8469128124) BUN (test code = 14 mg/dL 7-23 9712591096) GLUCOSE (test code = 92 mg/dL 70-110 8447046564) CREATININE (test code = 0.80 mg/dL 0.5-1.04 8849351143) CALCIUM (test code = 9.3 mg/dL 8.6-10.6 6410466106) eGFR Calculation mL/min/1.73m2 (Non-) (test code = 7316985521) eGFR Calculation mL/min/1.73m2 () (test code = 7886524430) MARCELLE (test code = MARCELLE) Association of [...] tests). Lab Interpretation Abnormal (test code = 47007-8) [facility] Center[facility]atic Function Panel (ALB, T.PRO, BILI T, BU/BC, ALT, AST, ALK PHOS)2019-08-18 14:48:00 Test Item Value Reference Range Interpretation Comments TOTAL BILI (test code = 3947704237) 0.4 mg/dL 0.1-1.1 BILI UNCON (test code = 5519832321) 0.4 mg/dL 0.1-1.1 BILI CONJ (test code = 2091177181) 0.0 mg/dL 0-0.3 T PROTEIN (test code = 6616034194) 8.1 g/dL 6.3-8.2 ALBUMIN (test code = 1408116029) 4.7 g/dL 3.5-5 ALK PHOS (test code = 2562151990) 74 U/L 34-122 ALTv (test code = 1742-6) 17 U/L 5-35 AST(SGOT) (test code = 1839419314) 27 U/L 13-40 Lab Interpretation (test code = Normal 12320-2) [facility] CenteraPTT2020-06-11 14:46:00 Test Item Value Reference Range Interpretation Comments APTT Patient (test See_Comment H [Automat ed code = 3173-2) message] The system which generated this result transmitted reference range : 23 - 38 Seconds . The reference range was not used to interpr et this result as normal/abnormal . MARCELLE (test code = MARCELLE) The [facility] patient population mean normal value for aPTT is 30 seconds. Lab Interpretation Abnormal (test code = 52553-3) [facility] [id number] 14:46:00 Test Item Value Reference Range Interpretation Comments Streptococcus pyogenes (group A) Negative Negative antigen (test code = 36577-4) Lab Interpretation (test code = Normal 64435-0) [facility] CenterProthrombin Time (PT) / [id number] 14:43:00 Test Item Value Reference Range Interpretation [...] tions. Lab Interpretation (test Normal code = 83571-5) [facility] CenterCOVID[facility] (ID NOW RAPID TESTING)2019-08-18 14:43:00 Test Item Value Reference Range Interpretation Comments SARS-CoV-2 Rapid ID NOW Not Detected Not Detected (test code = 50992-4) MARCELLE (test code = MARCELLE) ID NOW COVID-19 Assay is an isothermal nucleic acid amplification test intended for the qualitative detection of nucleic acid from SARS-CoV-2 viral RNA in nasopharyngeal ([employer]) specimens. It is used under Emergency Use [...] indicated. Lab Interpretation Normal (test code = 99544-2) [facility]. METABOLIC PANEL (50571)2019-07-29 03:00:00 Test Item Value Reference Range Interpretation Comments NA (test code = 141 mmol/L 135-145 7038595335) K (test code = 3.8 mmol/L 3.5-5 7622708042) CL (test code = 105 mmol/L 98-108 5655580523) CO2 TOTAL (test code = 27 mmol/L 23-31 8296868251) AGAP (test code = 2-16 4633576773) BUN (test code = 11 mg/dL 7-23 2294395584) GLUCOSE (test code = 91 mg/dL 70-110 1486835285) CREATININE (test code 0.58 mg/dL 0.5-1.04 = 8799021687) TOTAL BILI (test code 0.4 mg/dL 0.1-1.1 = 0079313759) CALCIUM (test code = 9.9 mg/dL 8.6-10.6 9505933653) T PROTEIN (test code = 7.3 g/dL 6.3-8.2 5342837889) ALBUMIN (test code = 4.5 g/dL 3.5-5 2795307042) ALK PHOS (test code = 53 U/L 34-122 6758377509) ALTv (test code = 12 U/L 5-35 1742-6) AST(SGOT) (test code = 27 U/L 13-40 3343141339) eGFR Calculation mL/min/1.73m2 (Non-) (test code = 1021163649) eGFR Calculation mL/min/1.73m2 () (test code = 5516210006) MARCELLE (test code = MARCELLE) Association of [...] or urine or abnormalities in imaging tests). [facility] CenterDESTINI [id number] 02:43:00 Test Item Value Reference Range Interpretation Comments TROPONIN I (test <0.012 See_Comment [Automated code = 2693855963) message] The system which generated this result [...] ? Lab Interpretation Normal (test code = 59733-5) [facility] CenterD-[id number] 02:32:00 Test Item Value Reference Interpretation Comments Range D-DIMER (test code = See_Comment H [Autom ated 6202989634) message] The system which generated this result [...] diagnosis. Lab Interpretation Abnormal (test code = 75526-7) [facility] CenterCBC WITH [id number] 02:21:00 Test Item Value Reference Range Interpretation Comments WBC (test code = See_Comment H [Automated 8890-2) message] The sy stem which generated this result transmitted reference range : 4.30 - 11.10 10*3/?L. The reference range was not used to interpret this result as normal/abnormal . RBC (test code = See_Comment [Automated 799-8) message] The sy stem which generated this [...] RDW-SD (test code = 40.0 fL 39-49.9 39744-7) RDW-CV (test code = 12.5 % 12-15.5 788-0) PLT (test code = See_Comment [Automated 777-3) message] The sy stem which generated this result transmitted reference range : 166 - 358 10*3/ ?L. The reference r david was not used to interpret this result as normal/abnormal . MPV (test code = 10.4 fL 9.5-12.9 01274-4) NRBC/100 WBC (test See_Comment [Automat ed code = 1059846478) message] The system which generated this result transmitted reference range : 0.0 - 10.0 /100 WBCs. The refer ence range was not u sed to interpret th is result as normal/abnormal . NRBC x10^3 (test code <0.01 See_Comment [Auto mated = 5283918474) message] The s ystem which generated this result transmitted reference range : 10*3/?L. The reference range was not used to interpret this result as normal/abnormal . GRAN MAT (NEUT) % 58.3 % (test code = 770-8) IMM GRAN % (test code 0.80 % = 3542975734) LYMPH % (test code = 32.1 % 736-9) MONO % (test code = 6.7 % 5905-5) EOS % (test code = 1.7 % 713-8) BASO % (test code = 0.4 % 706-2) GRAN MAT x10^3(ANC) 6.48 10*3/uL 1.88-7.09 (test code = 4626432212) IMM GRAN x10^3 (test 0.09 10*3/uL 0-0.06 H code = 2644143178) LYMPH x10^3 (test code 3.57 10*3/uL 1.32-3.29 H = 731-0) MONO x10^3 (test code 0.75 10*3/uL 0.33-0.92 = 742-7) EOS x10^3 (test code = 0.19 10*3/uL 0.03-0.39 711-2) BASO x10^3 (test code 0.04 10*3/uL 0.01-0.07 = 704-7) Lab Interpretation Abnormal (test code = 07402-9) [facility]XR [facility] 2 [id number] 02:02:09 No acute cardiopulmonary process. Preliminary Report Dictated by Resident: Carlos Guzman MD., have reviewed this study and agree with the abovereport.EXAM: XR CHEST 2 VW CLINICAL INDICATION: cough and SOB COMPARISON: 09/21/2017 TECHNIQUE: Frontal and lateral views of the chest wereobtained. FINDINGS: No focal consolidation, pleural effusion, or pneumothorax. The cardiac silhouette is normal in size. No acute osseous abnormality. [facility], [employer] User - 07/28/2019 9:03 [...] reviewed this study and agree with the abovereport.[facility] COVID-19 (ID NOW RAPID TESTING)2019-07-28 23:48:00 Test Item Value Reference Range Interpretation Comments SARS-CoV-2 Rapid ID NOW Not Detected Not Detected (test code = 75333-7) MARCELLE (test code = MARCELLE) ID NOW COVID-19 Assay is an isothermal nucleic acid amplification test intended for the qualitative detection of nucleic acid from SARS-CoV-2 viral RNA in nasopharyngeal ([employer]) specimens. It is used under Emergency Use [...] indicated. Lab Interpretation Normal (test code = 17842-7) [facility]PO[facility] [id number] 23:19:00 Test Item Value Reference Range Interpretation Comments POCT PREG (test code = 1605) Negative On board controls acceptable with Present C Line (test code = 3574) POCT PREG LOT # (test code = 3575) [id number] POCT PREG TEST DATE (test 10/06/2020 code = 3576) Lab Interpretation (test code = Normal 05197-0) [facility] ABDOMEN PELVIS WO [id number] 01:14:52 No acute intra-abdominal process. EXAM: CT [...] lytic or sclerotic bony lesions.IMPRESSIONNo acute intra-abdominal process.[facility] (NA, K, CL, CO2, GLUCOSE, BUN, CREATININE, CA)2019-06-27 00:52:00 Test Item Value Reference Range Interpretation Comments NA (test code = 139 mmol/L 135-145 2111081626) K (test code = 4.3 mmol/L 3.5-5 9015386739) CL (test code = 103 mmol/L 98-108 5239595162) CO2 TOTAL (test code = 26 mmol/L 23-31 9278473918) AGAP (test code = 2-16 2818316418) BUN (test code = 9 mg/dL 7-23 4803288890) GLUCOSE (test code = 90 mg/dL 70-110 9157800262) CREATININE (test code 0.56 mg/dL 0.5-1.04 = 0758099839) CALCIUM (test code = 9.4 mg/dL 8.6-10.6 9711764736) eGFR Calculation mL/min/1.73m2 (Non-) (test code = 8816389041) eGFR Calculation mL/min/1.73m2 () (test code = 7313565074) MARCELLE (test code = MARCELLE) Association of [...] or urine or abnormalities in imaging tests). [facility] Test Item Value Reference Range Interpretation Comments APPEARANCE (test code = Hazy Clear A 8164960766) COLOR (test code = Yellow Yellow 6157907749) PH (test code = 4.8-8.0 3552189768) SP GRAVITY (test code = 1.003-1.030 1662872693) GLU U QUAL (test code = Normal Normal 0095715596) BLOOD (test code = Negative Negative Interfere nce from 2015009347) ascorbic acid m ay cause false neg ative results. KETONES (test code = Negative Negative 7159526939) PROTEIN (test code = Negative Negative 2887-8) UROBILIN (test code = Normal Normal 5389289272) BILIRUBIN (test code = Negative Negative 9553856042) NITRITE (test code = Negative Negative 8024094837) LEUK WILBERT (test code = 25/uL Negative A 5977479908) RBC/HPF (test code = See_Comment [Autom ated message] 3843722901) The system [employer] generated this result transmitted ref erence range: 0 - 3 HP F. The reference range was not used to int erpret this result as normal/abnormal . WBC/HPF (test code = See_Comment H [Autom ated message] 3750164888) The system [employer] generated this result transmitted ref erence range: 0 - 5 HP F. The reference range was not used to int erpret this result as normal/abnormal . BACTERIA (test code = Few Negative A 4625687820) MUCOUS (test code = Slight Negative LPF A 9749264894) SQ EPITH (test code = See_Comment H [Auto mated message] 3165265171) The system [employer] generated this result transmitted ref erence range: <=2 HPF. The reference range was not used to int erpret this result as normal/abnormal . ASCORBIC ACID (test 20 mg/dL+ code = 2375338748) Lab Interpretation Abnormal (test code = 91054-2) [facility] WITH [id number] 00:43:00 Test Item Value Reference Range Interpretation Comments WBC (test code = See_Comment [Automated 2490-2) message] The sy stem which generated this result transmitted reference range : 4.30 - 11.10 10*3/?L. The reference range was not used to interpret this result as normal/abnormal . RBC (test code = See_Comment [Automated 519-8) message] The sy stem which generated this [...] (test code = 38.9 fL 39-49.9 L 43991-3) RDW-CV (test code = 12.1 % 12-15.5 788-0) PLT (test code = See_Comment [Automated 777-3) message] The sy stem which generated this result transmitted reference range : 166 - 358 10*3/ ?L. The reference r david was not used to interpret this result as normal/abnormal . MPV (test code = 10.1 fL 9.5-12.9 62621-7) NRBC/100 WBC (test See_Comment [Automat ed code = 3358196273) message] The system which generated this result transmitted reference range : 0.0 - 10.0 /100 WBCs. The refer ence range was not u sed to interpret th is result as normal/abnormal . NRBC x10^3 (test code <0.01 See_Comment [Auto mated = 0463838416) message] The s ystem which generated this result transmitted reference range : 10*3/?L. The reference range was not used to interpret this result as normal/abnormal . GRAN MAT (NEUT) % 62.9 % (test code = 770-8) IMM GRAN % (test code 0.50 % = 5379684017) LYMPH % (test code = 28.0 % 736-9) MONO % (test code = 7.0 % 5905-5) EOS % (test code = 1.1 % 713-8) BASO % (test code = 0.5 % 706-2) GRAN MAT x10^3(ANC) 5.81 10*3/uL 1.88-7.09 (test code = 0002856334) IMM GRAN x10^3 (test 0.05 10*3/uL 0-0.06 code = 4885151946) LYMPH x10^3 (test code 2.59 10*3/uL 1.32-3.29 = 731-0) MONO x10^3 (test code 0.65 10*3/uL 0.33-0.92 = 742-7) EOS x10^3 (test code = 0.10 10*3/uL 0.03-0.39 711-2) BASO x10^3 (test code 0.05 10*3/uL 0.01-0.07 = 704-7) Lab Interpretation Abnormal (test code = 71965-0) [facility] Test, [id number] 00:37:00 Test Item Value Reference Range Interpretation Comments POCT PREG (test code = 1605) Negative On board controls acceptable with Present C Line (test code = 3574) POCT PREG LOT # (test code = 3575) [id number] POCT PREG TEST DATE (test 11/06/2020 code = 3576) Lab Interpretation (test code = Normal 39943-4) [facility] URINALYSIS W/O SPECIFIC [id number] 18:32:00 Test Item Value Reference Range Interpretation [...] = 3257) about 250 Negative - Negative [facility] URINALYSIS W/O SPECIFIC [id number] 18:32:00 Test Item Value Reference Range Interpretation [...] = 3257) about 250 Negative - Negative [facility]00 Test Item Value Reference Range Interpretation Comments APPEARANCE (test code = Clear Clear 8556330303) COLOR (test code = Straw Yellow A 3793746768) PH (test code = 4.8-8.0 5019817554) SP GRAVITY (test code = 1.003-1.030 9045763154) GLU U QUAL (test code = Normal Normal 3617688756) BLOOD (test code = Negative Negative 0714900729) KETONES (test code = Negative Negative 8774284110) PROTEIN (test code = Negative Negative 2887-8) UROBILIN (test code = Normal Normal 1442343560) BILIRUBIN (test code = Negative Negative 3434392302) NITRITE (test code = Negative Negative 1532341560) LEUK WILBERT (test code = Negative Negative 3959993845) RBC/HPF (test code = See_Comment [Autom ated message] 2042039923) The system [employer] generated this result transmitted ref erence range: 0 - 3 HP F. The reference range was not used to int erpret this result as normal/abnormal . WBC/HPF (test code = <1 See_Comment [Autom ated message] 0166914499) The system [employer] generated this result transmitted ref erence range: 0 - 5 HP F. The reference range was not used to int erpret this result as normal/abnormal . BACTERIA (test code = Negative Negative 4296446874) SQ EPITH (test code = HPF 5196283378) Lab Interpretation (test Abnormal code = 49682-8) [facility] / [facility] - DRUG SCREEN [id number] 19:43:00 Test Item Value Reference Range Interpretation Comments BENZO U (test code = Negative Negative 3155697555) VALERIE U (test code = Negative Negative 1686450052) AMPHET (test code = Negative Negative 6749295837) THC (test code = Negative Negative 1015043368) METHADONE (test code = Negative Negative 2295915716) Meth U (test code = Negative Negative 1568819968) OPIATES (test code = Negative Negative 8392525501) Cocaine Metabolite (test Negative Negative code = 7435378854) PROPOXY (test code = Negative Negative 7235039206) Tric U (test code = Negative Negative 4087402753) PCP (test code = Negative Negative 0175841043) OXYCOD (test code = Negative Negative 5804086159) MARCELLE (test code = MARCELLE) Urine Drug [...] testing). Lab Interpretation (test Normal code = 29010-7) [facility] [id number] 19:21:00 Test Item Value Reference Range Interpretation Comments POCT PREG (test code = 1605) negative On board controls acceptable with present C Line (test code = 3574) POCT PREG LOT # (test code = [id number]) POCT PREG TEST DATE (test code = 3576) Lab Interpretation (test code = Normal 74518-0) [facility] [id number] 18:07:00 Test Item Value Reference Range Interpretation Comments NA (test code = 141 mmol/L 135-145 0045811745) K (test code = 4.3 mmol/L 3.5-5 5173969965) CL (test code = 104 mmol/L 98-108 4599534066) CO2 TOTAL (test code = 25 mmol/L 23-31 6995611143) AGAP (test code = 2-16 8839529945) BUN (test code = 13 mg/dL 7-23 0569647600) GLUCOSE (test code = 95 mg/dL 70-110 8258814969) CREATININE (test code = 0.68 mg/dL 0.5-1.04 8218383736) TOTAL BILI (test code = 0.3 mg/dL 0.1-1.4 7913071538) CALCIUM (test code = 10.2 mg/dL 8.6-10.6 0544460592) T PROTEIN (test code = 7.6 g/dL 6.3-8.2 1150004882) ALBUMIN (test code = 5.1 g/dL 3.5-5 H 4081794287) ALK PHOS (test code = 79 U/L 34-122 0596213132) ALTv (test code = 13 U/L 5-35 1742-6) AST(SGOT) (test code = 21 U/L 13-40 6718399844) eGFR Calculation mL/min/1.73m2 (Non-) (test code = 5043824732) eGFR Calculation mL/min/1.73m2 () (test code = 2153710967) MARCELLE (test code = MARCELLE) Association of [...] tests). Lab Interpretation Abnormal (test code = 26547-4) [facility], [id number] 18:07:00 Test Item Value Reference Range Interpretation Comments LIPASE (test code = 4870581640) 44 U/L 0-220 Lab Interpretation (test code = Normal 08202-6) [facility] WITH [id number] 17:57:00 Test Item Value Reference Range Interpretation Comments WBC (test code = See_Comment [Automated message] 6690-2) The system [employer] generated this result transmitted ref erence range: 4.30 - 1 1.10 10*3/?L. The re ference range was not u sed to interpret this result as normal/abnor mal. RBC (test code = See_Comment [Automated message] 789-8) The system [employer] generated this result transmitted ref erence range: [...] RDW-SD (test code 40.2 fL 39-49.9 = 81385-8) RDW-CV (test code 12.4 % 12-15.5 = 788-0) PLT (test code = See_Comment [Automated message] 777-3) The system [employer] generated this result transmitted ref erence range: 166 - 35 8 10*3/?L. The re ference range was not u sed to interpret this result as normal/abnor mal. MPV (test code = 10.4 fL 9.5-12.9 51134-0) NRBC/100 WBC (test See_Comment [Automat ed message] code = 1840346212) [employer] which generated this result transmitted ref erence range: 0.0 - 10 .0 /100 WBCs. The refer ence range was not u sed to interpret this result as normal/abnor mal. NRBC x10^3 (test <0.01 See_Comment [Automated message] code = 0207942875) The syste m which generated this result transmitted ref erence range: 10*3/?L. The reference range was not used to interpr et this result as normal/abnormal . GRAN MAT (NEUT) % 62.6 % (test code = 770-8) IMM GRAN % (test 0.60 % code = 9370714973) LYMPH % (test code 27.3 % = 736-9) MONO % (test code 7.2 % = 5905-5) EOS % (test code = 1.9 % 713-8) BASO % (test code 0.4 % = 706-2) GRAN MAT 5.98 10*3/uL 1.88-7.09 x10^3(ANC) (test code = 1703656514) IMM GRAN x10^3 0.06 10*3/uL 0-0.06 (test code = 0855419416) LYMPH x10^3 (test 2.61 10*3/uL 1.32-3.29 code = 731-0) MONO x10^3 (test 0.69 10*3/uL 0.33-0.92 code = 742-7) EOS x10^3 (test 0.18 10*3/uL 0.03-0.39 code = 711-2) BASO x10^3 (test 0.04 10*3/uL 0.01-0.07 code = 704-7) General acute hospital 1/2 AG-AB WITH [id number] 08:33:00 Test Item Value Reference Range Interpretation Comments HIV Negative Negative Semi-quantitative (test code = 98189-2) MARCELLE (test code = Non-reactive for HIV-1 MARCELLE) antigen and HIV-1/HIV-2 antibodies. ?No laboratory evidence of HIV infection. ?Repeat in 2-4 weeks if acute HIV infection is suspected. General acute hospital 1/2 AG-AB WITH [id number] 08:33:00 Test Item Value Reference Range Interpretation Comments HIV Negative Negative Semi-quantitative (test code = 71966-5) MARCELLE (test code = Non-reactive for HIV-1 MARCELLE) antigen and HIV-1/HIV-2 antibodies. ?No laboratory evidence of HIV infection. ?Repeat in 2-4 weeks if acute HIV infection is suspected. [facility]
--- NOTE | 2021-02-04 16:53 | ER ---
Nurse's Notes [facility] [place] Name: Mile Wang Age: 26 yrs Sex: Female : 1995 Arrival Date: 02/04/2021 Time: 15:42 Bed DIS2 Private MD: Diagnosis: Epileptic seizures related to external causes, not intractable Presentation: 02/04 15:42 Chief complaint: EMS states: was seen here yesterday for seizures and today she texted iw her friend that she had a seizure, seems like she is post ictal , the friend said she takes lamictal. Coronavirus screen: At this time, the client does not indicate any symptoms associated with coronavirus-19. Ebola Screen: Patient negative for fever greater than or equal to 101.5 degrees Fahrenheit, and additional compatible Ebola Virus Disease symptoms Patient denies exposure to infectious person. Patient denies travel to an Ebola-affected area in the 21 days before illness onset. No symptoms or risks identified at this time. Onset of symptoms was February 04, 2021. 15:42 Method Of Arrival: EMS: [facility] iw 15:42 Acuity: BAIRON 3 iw Historical: - Allergies: 15:44 Doxycycline; iw 15:44 Macrobid; iw 15:44 tramadol; iw 15:44 Vimpat; iw - PMHx: 15:44 Anxiety; Bipolar disorder; Psychogenic Seizures; Seizures; stent in gallbladder; iw - PSHx: 15:44 Cholecystectomy; Tonsillectomy; iw Assessment: 16:48 Reassessment: pt refusing IV , wants to sign out AMA, does not want to sit in hallway iw anymore. Vital Signs: 16:17 BP 117 / 66; Pulse 86; Resp 14; Temp 97.8(TE); Pulse Ox 100% on R/A; Pain 0/10; ss ED Course: 15:42 Patient arrived in ED. iw 15:43 Triage completed. iw 15:52 Arm band placed on. iw 16:15 Balejet Abraham PA is PHCP. jr8 16:15 Zen Villanueva MD is Attending Physician. jr8 16:35 Nadja Nick, JUAN M is Primary Nurse. iw 16:52 Richard Desai MD is Referral Physician. jr8 Administered Medications: No medications were administered Outcome: 16:52 Discharge ordered by MD. jr8 17:04 Patient left the ED. iw Signatures: Nadja Nick RN RN iw Smirch, Shelby, RN RN ss Roszak, Josh, PA PA jr8
--- NOTE | 2021-02-04 16:53 | EDPHYS ---
Physician Documentation [facility] Name: Mile Wang Age: 26 yrs Sex: Female : 1995 Arrival Date: 02/04/2021 Time: 15:42 Bed DIS2 Private MD: ED Physician Zen Villanueva HPI: 02/04 17:01 This 26 yrs old Female presents to ER via EMS with complaints of Probable Seizure. jr8 17:01 A 26-year-old female patient that presented via EMS after having multiple episodes of jr8 seizures today. Patient has a history of seizures and was recently started on Lamictal about a month ago after being off medication for some time. Patient stated that overall it has been helping but that she was having breakthrough seizures today. Patient was initially postictal but now back to baseline. Patient was seen yesterday in the emergency room for the same symptoms and was discharged home without acute findings.. Historical: - Allergies: 15:44 Doxycycline; iw 15:44 Macrobid; iw 15:44 tramadol; iw 15:44 Vimpat; iw - PMHx: 15:44 Anxiety; Bipolar disorder; Psychogenic Seizures; Seizures; stent in gallbladder; iw - PSHx: 15:44 Cholecystectomy; Tonsillectomy; iw ROS: 17:01 Eyes: Negative for injury, pain, redness, and discharge, ENT: Negative for injury, jr8 pain, and discharge, Neck: Negative for injury, pain, and swelling, Cardiovascular: Negative for chest pain, palpitations, and edema, Respiratory: Negative for shortness of breath, cough, wheezing, and pleuritic chest pain, Abdomen/GI: Negative for abdominal pain, nausea, vomiting, diarrhea, and constipation, Back: Negative for injury and pain, MS/Extremity: Negative for injury and deformity, Skin: Negative for injury, rash, and discoloration. 17:01 Neuro: Positive for seizure activity. Exam: 17:01 Constitutional: This is a well developed, well nourished patient who is awake, alert, jr8 and in no acute distress. Eyes: Pupils equal round and reactive to light, extra-ocular motions intact. Lids and lashes normal. Conjunctiva and sclera are non-icteric and not injected. Cornea within normal limits. Periorbital areas with no swelling, redness, or edema. ENT: Nares patent. No nasal discharge, no septal abnormalities noted. Tympanic membranes are normal and external auditory canals are clear. Oropharynx with no redness, swelling, or masses, exudates, or evidence of obstruction, uvula midline. Mucous membranes moist. Neck: Trachea midline, no thyromegaly or masses palpated, and no cervical lymphadenopathy. Supple, full range of motion without nuchal rigidity, or vertebral point tenderness. No Meningismus. Cardiovascular: Regular rate and rhythm with a normal S1 and S2. No gallops, murmurs, or rubs. Normal PMI, no JVD. No pulse deficits. Respiratory: Lungs have equal breath sounds bilaterally, clear to auscultation and percussion. No rales, rhonchi or wheezes noted. No increased work of breathing, no retractions or nasal flaring. Abdomen/GI: Soft, non-tender, with normal bowel sounds. No distension or tympany. No guarding or rebound. No evidence of tenderness throughout. Back: No spinal tenderness. No costovertebral tenderness. Full range of motion. Skin: Warm, dry with normal turgor. Normal color with no rashes, no lesions, and no evidence of cellulitis. MS/ Extremity: Pulses equal, no cyanosis. Neurovascular intact. Full, normal range of motion. Neuro: Awake and alert, GCS 15, oriented to person, place, time, and situation. Cranial nerves II-XII grossly intact. Motor strength 5/5 in all extremities. Sensory grossly intact. Cerebellar exam normal. Normal gait. Vital Signs: 16:17 BP 117 / 66; Pulse 86; Resp 14; Temp 97.8(TE); Pulse Ox 100% on R/A; Pain 0/10; ss MDM: 16:21 Patient medically screened. [facility] 17:01 Data reviewed: vital signs, nurses notes. Data interpreted: Pulse oximetry: on room air jr8 is 100 %. Interpretation: normal. Counseling: I had a detailed discussion with the patient and/or guardian regarding: the historical points, exam findings, and any diagnostic results supporting the discharge/admit diagnosis, the need for outpatient follow up, a neurologist, to return to the emergency department if symptoms worsen or persist or if there are any questions or concerns that arise at home. ED course: Patient stated that she is feeling much better and does not want to be worked up. We will see her neurologist and schedule an appointment. Will come back if she was to worsen. Patient is alert and oriented x4 and can answer all questions appropriately. Mother is on her way to pick her up and will be discharged once she is here to pick patient up.. 02/04 16:31 Order name: IV jr8 Administered Medications: No medications were administered Disposition: 02/05 08:31 Co-signature as Attending Physician, Zen Villanueva MD I agree with the assessment and joe plan of care. Disposition Summary: 02/04/21 16:52 Discharge Ordered Location: Home jr8 Problem: new jr8 Symptoms: have improved jr8 Condition: Stable jr8 Diagnosis - Epileptic seizures related to external causes, not intractable jr8 Followup: jr8 - With: Richard Desai MD - When: 1 - 2 days - Reason: Recheck today's complaints, Continuance of care, Re-evaluation by your physician Discharge Instructions: - Discharge Summary Sheet jr8 - Seizure, Adult jr8 Forms: - Medication Reconciliation Form jr8 - Thank You Letter jr8 - Antibiotic Education jr8 - Prescription Opioid Use jr8 Signatures: Dispatcher [employer] EDZen Aldana MD MD cha Williams, Irene, RN RN iw Baljeet Abraham PA PA jr8 Corrections: (The following items were deleted from the chart) 02/04 17:03 17:01 ED course: Patient stated that she is feeling much better and does not want to be jr8 worked up. We will see her neurologist and schedule an appointment. Will come back if she was to worsen.. jr8
[2021-02-04 17:20] VITALS: BP 117/66; TEMP 97.8; O2SAT 100
== END 2021-02-04 17:04 | disposition home or self-care (01) ==
LOC: ER 15:34
DX: G40.509 Epileptic seizures related to external causes, not intractable, without status epilepticus (principal); Z88.6 Allergy status to analgesic agent; Z88.2 Allergy status to sulfonamides
CPT/HCPCS: 99282

== ENCOUNTER 2021-02-12 22:19 | Emergency (ER) | payer OTHER ==
--- OUTSIDE RECORDS SUMMARY | 2021-02-12 22:31 | XMS REPORT | Continuity of Care Document ---
:1995 Author Organization [facility] t Address [address] [place] [address] Care Team Providers Name Role Phone Asked, [...] Rudy MCGOWAN, A Attending Clinician Unavailable Gabriel TAYLOR, S Attending Clinician Janessa RIOS Attending Clinician Unavailable Only, Test Attending Clinician Unavailable Sandra Galvin MD Attending Clinician Yulia Cardenas Attending Clinician Singer BIRMINGHAM Attending Clinician Herb Vasquez Attending Clinician Herb SOLIS Attending Clinician Unavailable Demian Simon DO Attending Clinician Visit, Nurse Attending Clinician Unavailable Bryn Hernandez Attending Clinician Bryn KATZ Attending Clinician Unavailable AGUS Attending Clinician Unavailable Agus TAYLOR Attending Clinician Kulwinder RN, D Attending Clinician Unavailable NICK Attending Clinician Unavailable Nick GAITAN Attending Clinician Moody PIMENTEL Attending Clinician Unavailable Ciara BIRMING[place]AM I Attending Clinician TESHA Admitting Clinician Unavailable Gabriel TAYLOR S Admitting Clinician ROSAURAMIRANDA Admitting Clinician Unavailable AGUS Admitting Clinician Unavailable NICK Admitting Clinician Unavailable Moody PIMENTEL Admitting Clinician Unavailable Payers Payer Name Policy Type Policy Number Effective Date Expiration Date Janessa sofia [facility] [id number] 2017 CHOICE MEDICAID 00:00:00 Advance Directives Directive Decision Effective Termination Comments Source Date Date Healthcare Agents on N/A Univ ersity FileNameRelationshipHealthcare [facility] Agent [facility]Communication[facility]Mother[facility] [phone] (Mobile) Problems Condition Condition Condition Status Onset Resolution Last Treating Co mments Source Name Details Category Date Date Treatment Clinician Date Frequent Frequent Disease Active Unive rs UTI UTI 8-03 ity of 00:: [place] [facility] Seizures Seizures Disease Active Unive rs 7-26 ity of 00:: [place] [facility] UTI UTI Disease Active Univers symptoms symptoms 4-01 ity of 00:00: [facility] Other Other Disease Active Univers general general 4-01 it[place] of counseling [place] and advice and advice 00 [facility] dical for [facility] contracept contracept billy billy management management Pain Pain Disease Active Univers pelvic pelvic 4-16 ity of 00:00: [place] [facility] Routine Routine Disease Active Univers 2-25 it y of follow-up follow-up 00:00: [facility] Abnormal Abnormal Disease Active Unive rs EKG EKG 8-02 ity of 00:00: [place] [facility] History of History of Disease Active U nivers seizure seizure 6-13 ity of 00:00: [place] [facility] Over Over Disease Active Univers weight weight 6-13 ity of 00:00: [place] 00 Medical Branch Vaginal Vaginal Disease Active Univers discharge discharge 7-03 ity of 00:00: [place] 00 Medical Branch Chlamydia Chlamydia Disease Active Uni vers 5-10 ity of 00:00: [place] 00 Medical Branch Bipolar Bipolar Disease Active Univers affective affective 5-09 ity of disorder, disorder, 00:[place] remission remission 00 [place] status status Branch unspecifie unspecifie d d Seizure Seizure Disease Active 2015-03 Overview: Univ ers disorder disorder 2- Formattin ity of 00:00: g of this [place] 00 note Medical might be Branch different from the original. Epilepsy x's 2 years. Had genetic counselin g 01/18/16 per [place], DEE.-see external records-p age [age] Allergies, Adverse Reactions, Alerts Allergy Allergy Status Severity Reaction(s) Onset Inactive Treating Comm ents Source Name Type Date Date Clinician Nitrofur Propensi Active Palpitations 2020- Univers antoin ty to 8-03 ity of Monohyd/ adverse 00:00: [place] M-Cryst reaction 00 Medical s Branch Lacosami Propensi Active Hives 2020-0 Univer s de ty to 8-03 ity of adverse 00:00: [place] reaction 00 Medical s Branch NITROFUR DRUG Active Palpitations 2020-0 Un aubree ANTOIN 8-03 ity of MONOHYD/ 00:00: [place] M-CRYST 00 Medical Branch LACOSAMI DRUG Active Hives 2020-0 Univers DE INGREDI 8-03 ity of 00:00: [place] 00 Medical Branch LACOSAMI Allergy Active High Hives 2020-[address] [facility] NITROFUR Allergy Active Med Anxiety 2020-[address] [facility] ANTOIN 7-16 [facility] MONOHYD/ 00:00: Medical M-CRYST 00 Center Doxycycl Propensi Active Other - See 2019- seizures Univers ine ty to comments 2-12 ity of adverse 00:00: [place] reaction 00 Medical s Branch Tramadol Propensi Active Other - See 2019- seizures Univers ty to comments 2-12 ity of adverse 00:00: [place] reaction 00 Medical s Branch DOXYCYCL DRUG Active Other-Cmnt 2019- Univ ers INE INGREDI 2-12 ity of 00:00: [place] 00 Medical Branch TRAMADOL DRUG Active Other-Cmnt 2019- Univ ers INGREDI 2-12 ity of 00:00: [place] 00 Medical Branch DOXYCYCL Allergy Active High Hives 2019- [facility]E [facility] TRAMADOL Allergy Active Other 2019-[address] [facility] 00:[facility] Medical 00 Center Social History Social Habit Start Date Stop Date Quantity Comments Source Exposure to Not sure [facility] SARS-CoV-2 (event) Medica l Branch Alcohol intake 2020-11-26 2020-11-26 0 /d [facility] 00:00:00 00:00:00 Medical Branch Tobacco use and 2015-12-21 2015-12-21 Never used [facility] exposure 00:00:00 00:00:00 Medical Branch Sex Ass[birth year] At [birth year] [facility] 00:00:00 00:00:00 Medical Branch Smoking Status Start Date Stop Date Source Never smoker [facility] Medications Ordered Filled Start Stop Current Ordering Indication Dosage Frequency Signature Comments Components Source Medication Medication Date Date Medication? Clinician (SIG) Name Name lamoTRIgine 2020-03 Yes [id number] Take 4 by Univers 25 mg 0-22 mouth BID. ity of disintegrat 00:00: [place] ing tablet 00 Medical Branch lamoTRIgine 2020-03 Yes [id number] Take 4 by Univers 25 mg 0-22 mouth BID. ity of disintegrat 00:00: [place] ing tablet 00 Medical Branch lamoTRIgine 0 Yes [id number] Take 3 by Univers 25 mg 9-20 mouth BID ity of disintegrat 00:00: [place] 14 [place] tablet 00 days. When Med ical prescripti Branch on completes. lamoTRIgine 2020- No [id number] Take 3 by Univers 25 mg 9-20 10-22 mouth BID ity of disintegrat 00:00: 00:00 for 14 [place] as ing tablet 00 :00 days. When Med ical prescripti Branch on completes. trospium 20 2020-0 Yes [id number] 20mg Take 1 Univers mg tablet 8-26 tablet by ity o f 00:00: mouth 2 [place] 00 (two) Medical times Branch daily. trospium 20 2020-0 Yes [id number] 20mg Take 1 Univers mg tablet 8-26 tablet by ity o f 00:00: mouth 2 [place] 00 (two) Medical times Branch daily. trospium 20 2020-0 Yes [id number] 20mg Take 1 Univers mg tablet 8-26 tablet by ity o f 00:00: mouth 2 [place] 00 (two) Medical times Branch daily. trospium 20 2020-0 Yes [id number] 20mg Take 1 Univers mg tablet 8-26 tablet by ity o f 00:00: mouth 2 [place] (two) Medical times Branch daily. trospium 20 2020-0 Yes [id number] 20mg Take 1 Univers mg tablet 8-26 tablet by ity o f 00:00: mouth 2 (two) Medical times Branch daily. trospium 20 2020-0 Yes [id number] 20mg Take 1 Univers mg tablet 8-26 tablet by ity o f 00:00: mouth 2 (two) Medical times Branch daily. trospium 20 2020-0 Yes [id number] 20mg Take 1 Univers mg tablet 8-26 tablet by ity o f 00:00: mouth 2 (two) Medical times Branch daily. lamoTRIgine 2020-2020- No [id number] 25mg Take 1 Univers 25 mg 8-13 08-21 tablet by ity of tablet 00:00: 04:59 mouth [place] 00 :00 every Medical evening Branch for 7 days. lamoTRIgine 2020-2020- No [id number] 25mg Take 1 Univers 25 mg 8-13 08-21 tablet by ity of tablet 00:00: 04:59 mouth [place] 00 :00 every Medical evening Branch for 7 days. lamoTRIgine 2020-2020- No [id number] 25mg Take 1 Univers 25 mg 8-13 08-21 tablet by ity of tablet 00:00: 04:59 mouth [place] 00 :00 every Medical evening Branch for 7 days. lamoTRIgine 2020-2020- No [id number] 25mg Take 1 Univers 25 mg 8-13 08-21 tablet by ity of tablet 00:00: 04:59 mouth [place] 00 :00 every Medical evening Branch for 7 days. lamoTRIgine 2020- No [id number] 25mg Take 1 Univers 25 mg 8-19 10-21 tablet by ity of tablet 00:00: 04:59 mouth [place] 00 :00 every Medical evening Branch for 7 days. lamoTRIgine 2020- No [id number] 25mg Take 1 Univers 25 mg 8-19 10-21 tablet by ity of tablet 00:00: 04:59 mouth [place] 00 :00 every Medical evening Branch for 7 days. lamoTRIgine 2020- No [id number] 25mg Take 1 Univers 25 mg 8-19 10-21 tablet by ity of tablet 00:00: 04:59 mouth [place] 00 :00 every Medical evening Branch for 7 days. lamoTRIgine 2020- No [id number] 25mg Take 1 Univers 25 mg 8-19 10- tablet by ity of tablet 00:00: 04:59 mouth [place] 00 :00 every Medical evening Branch for 7 days. lamoTRIgine 2020- No [id number] 25mg Take 1 Univers 25 mg 8-19 10- tablet by ity of tablet 00:00: 04:59 mouth [place] 00 :00 every Medical evening Branch for 7 days. lamoTRIgine 2020- No [id number] 25mg Take 1 Univers 25 mg 8-19 10- tablet by ity of tablet 00:00: 04:59 mouth [place] 00 :00 every Medical evening Branch for 7 days. lamoTRIgine 2020- No [id number] 25mg Take 1 Univers 25 mg 8-19 10- tablet by ity of tablet 00:00: 04:59 mouth [place] 00 :00 every Medical evening Branch for 7 days. gadoteridol 2020- No [id number] .2mL/kg 0.2 mL/kg, Univers (PROHANCE-2 10-18 Intravenou i ty of 0 mL) 18:45: 18:46 s, ONCE, 1 [place] injection 00 :00 dose, [facility] Medic al 0.2 mL/kg 10/18/20 at [facility] 1345, Routine metroNIDAZO Yes [id number] 500mg Take 1 Univers LE (FLAGYL) 10-15 tablet by ity of 500 mg 00:00: mouth 2 [place] tablet 00 (two) Medical times Silva daily. metroNIDAZO Yes [id number] 500mg Take 1 Univers LE (FLAGYL) - tablet by ity of 500 mg 00:00: mouth 2 [place] tablet 00 (two) Medical times Silva daily. metroNIDAZO 2020- No [id number] 500mg Take 1 Univers LE (FLAGYL) 10-15- tablet by it y of 500 mg 00:00: 00:00 mouth 2 [place] tablet 00 :00 (two) Medical times Silva daily. metroNIDAZO 2020- No [id number] 500mg Take 1 Univers LE (FLAGYL) 10-15 tablet by it y of 500 mg 00:00: 00:00 mouth 2 [place] tablet 00 :00 ([facility]) Medical times Silva daily. metroNIDAZO 2020- No [id number] 500mg Take 1 Univers LE (FLAGYL) 10-15 tablet by it y of 500 mg 00:00: 00:00 mouth 2 [place] tablet 00 :00 (surgical specialty center) Medical times Silva daily. metroNIDAZO 2020- No [id number] 500mg Take 1 Univers LE (FLAGYL) 10-15 tablet by it y of 500 mg 00:00: 04:59 mouth 2 [place] tablet 00 :00 (surgical specialty center) [facility] daily for 7 days. metroNIDAZO 2020- No [id number] 500mg Take 1 Univers LE (FLAGYL) 10-15- tablet by it y of 500 mg 00:00: 00:00 mouth 2 [place] tablet 00 :00 (surgical specialty center) [facility] times Silva daily for 7 days. azithromyci 2020- No [id number] 1000mg Take 2 Univers n 10-11 08-06 tablets by ity of (ZITHROMAX) 00:00: 04:59 mouth once [place] 500 mg 00 :00 now for 1 Medical tablet dose. Branch LITHIUM Yes Take by Univer s CARBONATE 10-09 mouth. ity of ORAL 21:04: [place] 25 Medical Branch busPIRone Yes 10mg Take [...] CARBONATE 8-03 mouth. ity of ORAL 21:04: 25 Medical Branch busPIRone 2020-0 Yes 10mg Take 10 mg Un aubree 10 mg 8-03 by mouth 2 ity of tablet 21:04: (two) [place] 25 times Medical daily. Branch LITHIUM 2020-0 Yes Take by Univer s CARBONATE 8-03 mouth. ity of ORAL 21:04: 25 Medical Branch busPIRone 2020-0 Yes 10mg Take 10 mg Un aubree 10 mg 8-03 by mouth 2 ity of tablet 21:04: (two) [place] 25 times Medical daily. Branch LITHIUM 2020-0 Yes Take by Univer s CARBONATE 8-03 mouth. ity of ORAL 21:04: 25 Medical Branch busPIRone 2020-0 Yes 10mg Take [...] CARBONATE 8-03 mouth. ity of ORAL 16:04: 25 Medical Branch busPIRone 2020-0 Yes 10mg Take 10 mg Un aubree 10 mg 8-03 by mouth 2 ity of tablet 16:04: (two) [place] 25 times Medical daily. Branch LITHIUM Yes Take by Univer s CARBONATE 7-30 mouth. ity of ORAL 15:22: [address] busPIRone Yes 10mg Take 10 mg Un aubree 10 mg 7-30 by mouth 2 ity of tablet 15:22: (two) [place] 11 times Medical daily. Branch LITHIUM Yes Take by Univer s CARBONATE 7-30 mouth. ity of ORAL 15:22: [address] busPIRone Yes 10mg Take 10 mg Un a[place] 10 mg 7-30 by mouth 2 ity of tablet 15:22: (two) [place] 11 times Medical daily. Branch LITHIUM Yes Take by Univer s CARBONATE 7-30 mouth. ity of ORAL 15:22: [address] busPIRone Yes 10mg Take 10 mg Un a[place] 10 mg 7-30 by mouth 2 ity of tablet 15:22: (two) [place] 11 times Medical daily. Branch lamoTRIgine 2020- No [id number] Take 1 Univers 25 mg 7-30 09-27 [...] daily for 30 days. lamoTRIgine 2020- No [id number] Take 1 Univers 25 mg 7-30 09-27 [...] daily for 30 days. lamoTRIgine 2020- No [id number] Take 1 Univers 25 mg 7-30 09-27 [...] times daily for 30 days. lamoTRIgine No [id number] Take 1 Univers 25 mg 7-30 09-27 [...] times daily for 30 days. lamoTRIgine No [id number] Take 1 Univers 25 mg 7-30 09-27 [...] times daily for 30 days. lamoTRIgine No [id number] Take 1 Univers 25 mg 7-30 09-27 [...] daily for 30 days. lamoTRIgine 2020- No [id number] Take 1 Univers 25 mg 7-30 09-27 [...] times daily for 30 days. lamoTRIgine No [id number] Take 1 Univers 25 mg 7-30 09-27 [...] times daily for 30 days. lamoTRIgine No [id number] Take 1 Univers 25 mg 7-30 09-27 [...] times daily for 30 days. lamoTRIgine No [id number] Take 1 Univers 25 mg 7-30 09-27 [...] times daily for 30 days. lamoTRIgine No [id number] Take 1 Univers 25 mg 7-30 09-27 [...] daily for 30 days. lamoTRIgine 2020- No [id number] Take 1 Univers 25 mg 7-30 09-27 [...] times daily for 30 days. lamoTRIgine No [id number] Take 1 Univers 25 mg 7-30 09-27 [...] daily for 30 days. lamoTRIgine 2020- No [id number] Take 1 Univers 25 mg 10-05 tablet [...] daily for 30 days. lamoTRIgine 2020- No [id number] Take 1 Univers 25 mg 10-05 tablet [...] 21:33: Q8HPRN, [place] mg 44 Starting Medical Nicolette Silva 10/04/20 at 1633, Until Discontinu ed, Routine, Anxiety LORazepam Yes 2mg 2 mg, Univers (ATIVAN) 10-03 Intramuscu ity o f injection 2 20:47: lar, PRN - [place] mg 05 SEE Medical INSTRUCTIO Silva NS, 2 doses, Starting [facility] 10/03/20 at 1547, Until Discontinu ed, STAT, For seizure lasting two minutes or longer. hydrOXYzine 2020- No 10mg 10 mg, Uni vers (ATARAX) 10-03 Oral, Q8H, ity of tablet 10 20:00: 21:22 First dose [place] mg 00 :10 on Thu [facility] 10/03/20 at Branch 1500, Until Discontinu ed, Routine lithium Yes 600mg 600 mg, Univer s carbonate 10-02 Oral, QAM, ity of CR tablet 14:00: First dose [place] 600 mg 00 on Thu [facility] 10/02/20 at Branch 0900, Until Discontinu ed busPIRone 2020-0 Yes 10mg 10 mg, Univer s (BUSPAR) 7-27 Oral, BID, ity o f tablet 10 01:00: First dose [place] mg 00 on [facility] 10/01/20 at Branch 1999, Until Discontinu ed, Routine famotidine 2020-0 Yes 20mg 20 mg, Unive rs (PEPCID AC) 7-27 Oral, BID, it y of tablet 20 01:00: First dose [place] mg 00 on [facility] 10/01/20 at Branch 1999, Until Discontinu ed, Routine heparin 2020-0 Yes 5000U 5,000 Univers (porcine) 7- Units, ity of injection 01:00: Subcutaneo [place] 5,000 Units 00 us, Q12H, Med ical First dose Branch on Thu10/01/20 at 1999, Until Discontinu ed, Routine lithium 2020-0 Yes 900mg 900 mg, Univer s carbonate - Oral, QPM, ity of (LITHONATE) 22:00: First dose [place] capsule 900 00 on [facility] Medica l mg 10/01/20 at Branch 1700, Until Discontinu ed, Routine LITHIUM 2020-0 Yes Take by Univer s CARBONATE 7- mouth. ity of ORAL 17:24: [address] busPIRone 2020-0 Yes 10mg Take 10 mg Un [place] 10 mg - by mouth 2 ity of tablet 17:24: (two) [place] 16 times Medical daily. Branch LITHIUM 0 Yes Take by Univer s CARBONATE 7- mouth. ity of ORAL 17:24: [address] busPIRone 2020-0 Yes 10mg Take 10 mg Un [place] 10 mg 7- by mouth 2 ity of tablet 17:24: (two) [place] 16 times Medical daily. Silva topiramate 2020-0 2020- No 100mg Take 100 U nivers (TOPAMAX) 7-26 07-26 mg by ity of 100 mg 17:24: 00:00 mouth. [place] tablet 16 :00 [facility] topiramate 2020-0 2020- No 100mg Take 100 U nivers (TOPAMAX) 7-26 07-26 mg by ity of 100 mg 17:24: 00:00 mouth. [place] tablet 16 :00 [facility] topiramate 2020- No 100mg Take 100 U nivers (TOPAMAX) 10-01 mg by ity of 100 mg 17:24: 00:00 mouth. [place] tablet 16 :00 [facility] ondansetron Yes 4mg 4 mg, Slow Univers (ZOFRAN 10-01 IV Push, ity of (PF)) 17:23: Q6HPRN, [place] injection 4 23 Starting Medi tressa mg [facility] 10/01/20 at 1223, Until Discontinu ed, Routine, Nausea and Vomiting (N/V) acetaminoph Yes 650mg 650 mg, Un aubree en 10-01 Oral, ity of (TYLENOL) 17:23: Q6HPRN, [place] tablet 650 17 Starting Medic al mg [facility] 10/01/20 at 1223, Until Discontinu ed, Routine, Pain (scale 1-3) clonazePAM 2020- No .5mg 0.5 mg, Uni vers (KLONOPIN) 09-13 Oral, ity of tablet 0.5 04:45: 03:48 ONCE, 1 [place] as mg 00 :00 dose, [facility] 09/12/20 at Silva 2345, Routine famotidine No 20mg 20 mg, IV U nivers 20 mg in NS 09-13 Piggyback, i ty of 50 ml 02:45: 04:38 ONCE, 1 [place] (PEPCID) 20 00 :00 dose, [facility] Med ical mg/50 mL 09/12/20 at Silva Piggyback 2145, 50 20 mg mL diphenhydrA 2020- No 25mg 25 mg, Uni vers MINE 09-13 Slow IV ity of (BENADRYL) 02:45: 02:26 Push, [place] injection 00 :00 ONCE, 1 Medical 25 mg dose, [facility] 09/12/20 at 2145, STAT methylPREDN 2020- No 125mg 125 mg, U nivers ISolone sod 09-13 Intravenou i ty of succ 02:30: 02:22 s, ONCE [place] (SOLU-MEDRO 00 :00 NOW, 1 Medica l L (PF)) dose, [facility] injection 09/12/20 at 125 mg 2130, Routine carBAMazepi 2020- No 600mg 600 mg, U nivers ne 09-12- Oral, ity of (TEGRETOL) 02:45: 01:56 ONCE, 1 [place] as tablet 600 00 :00 dose, Tue Medi tressa mg 09/11/20 at Branch 2145, SHAYNA hydrOXYzine 0 Yes [id number] 50mg Take 1 Univers (VISTARIL) 7-07 capsule by ity of 50 mg 00:00: mouth 3 [place] capsule 00 (three) Medical times Branch daily as needed for Itching. hydrOXYzine Yes [id number] 50mg Take 1 Univers (VISTARIL) 7-07 capsule by ity of 50 mg 00:00: mouth 3 [place] capsule 00 (three) Medical times Branch daily as needed for Itching. hydrOXYzine Yes [id number] 50mg Take 1 Univers (VISTARIL) 7-07 capsule by ity of 50 mg 00:00: mouth 3 [place] capsule 00 (three) Medical times Branch daily as needed for Itching. hydrOXYzine Yes [id number] 50mg Take 1 Univers (VISTARIL) 7-07 capsule by ity of 50 mg 00:00: mouth 3 [place] capsule 00 (three) Medical times Branch daily as needed for Itching. hydrOXYzine 0 Yes [id number] 50mg Take 1 Univers (VISTARIL) 7-07 capsule by ity of 50 mg 00:00: mouth 3 [place] capsule 00 (three) Medical times Branch daily as needed for Itching. hydrOXYzine 0 Yes [id number] 50mg Take 1 Univers (VISTARIL) 7-07 capsule by ity of 50 mg 00:00: mouth 3 [place] capsule 00 (three) Medical times Branch daily as needed for Itching. hydrOXYzine 0 Yes [id number] 50mg Take 1 Univers (VISTARIL) 7-07 capsule by ity of 50 mg 00:00: mouth 3 [place] capsule 00 (three) Medical times Branch daily as needed for Itching. hydrOXYzine 2020-0 Yes [id number] 50mg Take 1 Univers (VISTARIL) 7-07 capsule by ity of 50 mg 00:00: mouth 3 [place] capsule 00 (three) Medical times Branch daily as needed for Itching. hydrOXYzine 2020-0 Yes [id number] 50mg Take 1 Univers (VISTARIL) 7-07 capsule by ity of 50 mg 00:00: mouth 3 [place] capsule 00 (three) Medical times Branch daily as needed for Itching. hydrOXYzine 2020-0 Yes [id number] 50mg Take 1 Univers (VISTARIL) 7-07 capsule by ity of 50 mg 00:00: mouth 3 [place] capsule 00 (three) Medical times Branch daily as needed for Itching. hydrOXYzine 2020-0 Yes [id number] 50mg Take 1 Univers (VISTARIL) 7-07 capsule by ity of 50 mg 00:00: mouth 3 [place] capsule 00 (three) Medical times Branch daily as needed for Itching. hydrOXYzine 2020-0 Yes [id number] 50mg Take 1 Univers (VISTARIL) 7-07 capsule by ity of 50 mg 00:00: mouth 3 [place] capsule 00 (three) Medical times Branch daily as needed for Itching. hydrOXYzine 0 Yes [id number] 50mg Take 1 Univers (VISTARIL) 7-07 capsule by ity of 50 mg 00:00: mouth 3 [place] capsule 00 (three) Medical times Branch daily as needed for Itching. hydrOXYzine 2020-0 Yes [id number] 50mg Take 1 Univers (VISTARIL) 7-07 capsule by ity of 50 mg 00:00: mouth 3 [place] capsule 00 (three) Medical times Branch daily as needed for Itching. hydrOXYzine 2020-0 Yes [id number] 50mg Take 1 Univers (VISTARIL) 7-07 capsule by ity of 50 mg 00:00: mouth 3 [place] capsule 00 (three) Medical times Branch daily as needed for Itching. hydrOXYzine 2020-0 Yes [id number] 50mg Take 1 Univers (VISTARIL) 7-07 capsule by ity of 50 mg 00:00: mouth 3 [place] capsule 00 (three) Medical times Branch daily as needed for Itching. hydrOXYzine 2020-0 1- No [id number] 50mg Take 1 Univers (VISTARIL) 7-07 08-26 capsule by it y of 50 mg 00:00: 00:00 mouth 3 [place] capsule 00 :00 (three) Medical times Branch daily as needed for Itching. hydrOXYzine 2020- No [id number] 50mg Take 1 Univers (VISTARIL) 09-12 capsule by it y of 50 mg 00:00: 00:00 mouth 3 [place] capsule 00 :00 (three) Medical times Branch daily as needed for Itching. hydrOXYzine 2020- No [id number] 50mg Take 1 Univers (VISTARIL) 09-12 capsule by it y of 50 mg 00:00: 00:00 mouth 3 [place] capsule 00 :00 (three) Medical times Branch daily as needed for Itching. gabapentin 2020- No [id number] 300mg Take 1 Univers 300 mg 09-12 4105 capsule by ity of capsule 00:00: 04:59 mouth 3 [place] 00 :00 (three) Medical times Branch daily for 15 days. gabapentin 2020- No [id number] 300mg Take 1 Univers 300 mg 09-12 4105 capsule by ity of capsule 00:00: 04:59 mouth 3 [place] 00 :00 (three) Medical times Branch daily for 15 days. gabapentin 2020- No [id number] 300mg Take 1 Univers 300 mg 09-12 4105 capsule by ity of capsule 00:00: 04:59 mouth 3 [place] 00 :00 (three) Medical times Branch daily for 15 days. gabapentin 2020- No [id number] 300mg Take 1 Univers 300 mg 09-12 4105 capsule by ity of capsule 00:00: 04:59 mouth 3 [place] 00 :00 (three) Medical times Branch daily for 15 days. gabapentin 2020- No [id number] 300mg Take 1 Univers 300 mg 09-12 4105 capsule by ity of capsule 00:00: 04:59 mouth 3 [place] 00 :00 (three) Medical times Branch daily for 15 days. carBAMazepi 2020- Yes [id number] 200mg Take 1 Univers ne 09-11 tablet by ity of (TEGRETOL 00:00: mouth 2 [place] XR) 200 mg 00 (two) Medical 12 hr times Branch tablet daily. carBAMazepi 2020-0 Yes [id number] 200mg Take 1 Univers ne 7-06 tablet by ity of (TEGRETOL 00:00: mouth 2 [place] XR) 200 mg 00 (two) Medical 12 hr times Branch tablet daily. carBAMazepi 2020-0 Yes [id number] 200mg Take 1 Univers ne 7-06 tablet by ity of (TEGRETOL 00:00: mouth 2 [place] XR) 200 mg 00 (two) Medical 12 hr times Branch tablet daily. carBAMazepi 2020-0 Yes [id number] 200mg Take 1 Univers ne 7-06 tablet by ity of (TEGRETOL 00:00: mouth 2 [place] XR) 200 mg 00 (two) Medical 12 hr times Branch tablet daily. carBAMazepi 2020-0 Yes [id number] 200mg Take 1 Univers ne 7-06 tablet by ity of (TEGRETOL 00:00: mouth 2 [place] XR) 200 mg 00 (two) Medical 12 hr times Branch tablet daily. carBAMazepi 2020-0 Yes [id number] 200mg Take 1 Univers ne 7-06 tablet by ity of (TEGRETOL 00:00: mouth 2 [place] XR) 200 mg 00 (two) Medical 12 hr times Branch tablet daily. carBAMazepi 2020-0 Yes [id number] 200mg Take 1 Univers ne 7-06 tablet by ity of (TEGRETOL 00:00: mouth 2 [place] XR) 200 mg 00 (two) Medical 12 hr times Branch tablet daily. carBAMazepi 2020-0 2020- No [id number] 200mg Take 1 Univers ne 7-08 13-26 tablet by ity of (TEGRETOL 00:00: 00:00 mouth 2 [place] XR[place] 200 mg 00 :00 (two) Medical 12 hr times Branch tablet daily. carBAMazepi 2020-0 2020- No [id number] 200mg Take 1 Univers ne 7-08 13-26 tablet by ity of (TEGRETOL 00:00: 00:00 mouth 2 [place] XR[place] 200 mg 00 :00 (two) Medical 12 hr times Branch tablet daily. carBAMazepi 2020-0 2020- No [id number] 200mg Take 1 Univers ne 7-06 07-26 tablet by ity of (TEGRETOL 00:00: 00:00 mouth 2 [place] XR[place] 200 mg 00 :00 (two) Medical 12 hr times Branch tablet daily. lacosamide 2020-0 2020- No 100mg 100 mg, Un aubree (VIMPAT) 6-25 06-25 Oral, ity of tablet 100 18:45: 18:43 ONCE, 1 [place] as mg 00 :00 dose, Fri Medical 08/31/20 at Branch 1345, Routine
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 Branch busPIRone 1-0 Yes 10mg Take 10 mg Un [place] 10 mg 6-25 by mouth 2 ity of tablet 18:41: (two) [place] 13 times Medical daily. Branch LITHIUM 2020-0 Yes Take by Univer s CARBONATE 6-25 mouth. ity of ORAL 18:41: [place] 12 Medical Branch LITHIUM 2020-0 Yes Take by Univer s CARBONATE 6-25 mouth. ity of ORAL 18:41: [address] LITHIUM Yes Take by Univer s CARBONATE 6-25 mouth. ity of ORAL 18:41: [address] LITHIUM Yes Take by Univer s CARBONATE 6-25 mouth. ity of ORAL 18:41: [address] LITHIUM Yes Take by Univer s CARBONATE 6-25 mouth. ity of ORAL 18:41: [address] LITHIUM Yes Take by Univer s CARBONATE 6-25 mouth. ity of ORAL 18:41: [address] LITHIUM Yes Take by Univer s CARBONATE 6-25 mouth. ity of ORAL 18:41: [address] LITHIUM Yes Take by Univer s CARBONATE 6-25 mouth. ity of ORAL 18:41: [address] Lacosamide Yes [id number] 100mg Take 1 [facility] (VIMPAT) 6-25 tablet by ity of 100 mg 00:00: mouth [place] tablet 00 every 12 Medical (twelve) Branch hours. Lacosamide 2020- No [id number] 100mg Take 1 [facility] (VIMPAT) 6-25 07-06 tablet by ity o f 100 mg 00:00: 00:00 mouth [place] tablet 00 :00 every 12 Medical (twelve) Branch hours. acetaminoph 2020- No 1000mg 1,000 mg, Univers en 6-24 06-24 Oral, ity of (TYLENOL) 03:15: 02:16 ONCE, 1 [place] 00 :[place] dose, Wed Medical 1,000 mg 08/29/20 at [facility] h 2215, SHAYNA ibuprofen 0 Yes [id number] 600mg Take 1 [facility] 600 mg 6-23 tablet by ity of tablet 00:00: mouth [place] 00 every 6 Medical (six) Branch hours as needed for Pain (scale 4-6). benzonatate 0 Yes [id number] 200mg Take 1 [facility] 200 mg 6-23 capsule by ity of capsule 00:00: mouth 3 [place] 00 (three) Medical times Branch daily as needed for Cough for up to 20 doses. ondansetron 0 Yes [id number] 4mg Take 1 Univers (ZOFRAN 6-23 tablet by ity of ODT) 4 mg 00:00: mouth [place] disintegrat 00 every 8 Medic al ing tablet (eight) Branch hours as needed for Nausea and Vomiting (N/V). ibuprofen 2021-0 Yes [id number] 600mg Take 1 [facility] 600 mg 6-23 tablet by ity of tablet 00:00: mouth [place] 00 every 6 Medical (six) Branch hours as needed for Pain (scale 4-6). benzonatate 2021-0 Yes [id number] 200mg Take 1 [facility] 200 mg 6-23 capsule by ity of capsule 00:00: mouth 3 [place] 00 (three) Medical times Branch daily as needed for Cough for up to 20 doses. ondansetron 2021-0 Yes [id number] 4mg Take 1 [facility] (ZOFRAN 6-23 tablet by ity of ODT) 4 mg 00:00: mouth [place] disintegrat 00 every 8 Medic al ing tablet (eight) Branch hours as needed for Nausea and Vomiting (N/V). ibuprofen 1-0 Yes [id number] 600mg Take 1 [facility] 600 mg 6-23 tablet by ity of tablet 00:00: mouth [place] 00 every 6 Medical (six) Branch hours as needed for Pain (scale 4-6). benzonatate 2021-0 Yes [id number] 200mg Take 1 [facility] 200 mg 6-23 capsule by ity of capsule 00:00: mouth 3 [place] 00 (three) Medical times Branch daily as needed for Cough for up to 20 doses. ondansetron 2021-0 Yes [id number] 4mg Take 1 [facility] (ZOFRAN 6-23 tablet by ity of ODT) 4 mg 00:00: mouth [place] disintegrat 00 every 8 Medic al ing tablet (eight) Branch hours as needed for Nausea and Vomiting (N/V). ibuprofen 2021-0 Yes [id number] 600mg Take 1 [facility] 600 mg 6-23 tablet by ity of tablet 00:00: mouth [place] 00 every 6 Medical (six) Branch hours as needed for Pain (scale 4-6). benzonatate 2021-0 Yes [id number] 200mg Take 1 [facility] 200 mg 6-23 capsule by ity of capsule 00:00: mouth 3 [place] 00 (three) Medical times Branch daily as needed for Cough for up to 20 doses. ondansetron 2021-0 Yes [id number] 4mg Take 1 [facility] (ZOFRAN 6-23 tablet by ity of ODT) 4 mg 00:00: mouth [place] disintegrat 00 every 8 Medic al ing tablet (eight) Branch hours as needed for Nausea and Vomiting (N/V). ibuprofen 1-0 Yes [id number] 600mg Take 1 [facility] 600 mg 6-23 tablet by ity of tablet 00:00: mouth [place] 00 every 6 Medical (six) Branch hours as needed for Pain (scale 4-6). benzonatate 2021-0 Yes [id number] 200mg Take 1 [facility] 200 mg 6-23 capsule by ity of capsule 00:00: mouth 3 [place] 00 (three) Medical times Branch daily as needed for Cough for up to 20 doses. ondansetron 1-0 Yes [id number] 4mg Take 1 Univers (ZOFRAN 6-23 tablet by ity of ODT) 4 mg 00:00: mouth [place] disintegrat 00 every 8 Medic al ing tablet (eight) Branch hours as needed for Nausea and Vomiting (N/V). ibuprofen 2020-0 Yes [id number] 600mg Take 1 [facility] 600 mg 6-23 tablet by ity of tablet 00:00: mouth [place] 00 every 6 Medical (six) Branch hours as needed for Pain (scale 4-6). benzonatate 1-0 Yes [id number] 200mg Take 1 [facility] 200 mg 6-23 capsule by ity of capsule 00:00: mouth 3 [place] 00 (three) Medical times Branch daily as needed for Cough for up to 20 doses. ondansetron 2021-0 Yes [id number] 4mg Take 1 [facility] (ZOFRAN 6-23 tablet by ity of ODT) 4 mg 00:00: mouth [place] disintegrat 00 every 8 Medic al ing tablet (eight) Branch hours as needed for Nausea and Vomiting (N/V). ibuprofen 1-0 Yes [id number] 600mg Take 1 [facility] 600 mg 6-23 tablet by ity of tablet 00:00: mouth [place] 00 every 6 Medical (six) Branch hours as needed for Pain (scale 4-6). benzonatate 2021-0 Yes [id number] 200mg Take 1 [facility] 200 mg 6-23 capsule by ity of capsule 00:00: mouth 3 [place] 00 (three) Medical times Branch daily as needed for Cough for up to 20 doses. ondansetron 2021-0 Yes [id number] 4mg Take 1 Univers (ZOFRAN 6-23 tablet by ity of ODT) 4 mg 00:00: mouth [place] disintegrat 00 every 8 Medic al ing tablet (eight) Branch hours as needed for Nausea and Vomiting (N/V). ibuprofen 2021-0 Yes [id number] 600mg Take 1 [facility] 600 mg 6-23 tablet by ity of tablet 00:00: mouth [place] 00 every 6 Medical (six) Branch hours as needed for Pain (scale 4-6). benzonatate 2021-0 Yes [id number] 200mg Take 1 [facility] 200 mg 6-23 capsule by ity of capsule 00:00: mouth 3 [place] 00 (three) Medical times Branch daily as needed for Cough for up to 20 doses. ondansetron 2020-0 Yes [id number] 4mg Take 1 Univers (ZOFRAN 6-23 tablet by ity of ODT) 4 mg 00:00: mouth [place] disintegrat 00 every 8 Medic al ing tablet (eight) Branch hours as needed for Nausea and Vomiting (N/V). ibuprofen 2020-0 Yes [id number] 600mg Take 1 [facility] 600 mg 6-23 tablet by ity of tablet 00:00: mouth [place] 00 every 6 Medical (six) Branch hours as needed for Pain (scale 4-6). benzonatate 1-0 Yes [id number] 200mg Take 1 [facility] 200 mg 6-23 capsule by ity of capsule 00:00: mouth 3 [place] 00 (three) Medical times Branch daily as needed for Cough for up to 20 doses. ondansetron 1-0 Yes [id number] 4mg Take 1 Univers (ZOFRAN 6-23 tablet by ity of ODT) 4 mg 00:00: mouth [place] disintegrat 00 every 8 Medic al ing tablet (eight) Branch hours as needed for Nausea and Vomiting (N/V). ibuprofen 2021-0 Yes [id number] 600mg Take 1 [facility] 600 mg 6-23 tablet by ity of tablet 00:00: mouth [place] 00 every 6 Medical (six) Branch hours as needed for Pain (scale 4-6). benzonatate 2021-0 Yes [id number] 200mg Take 1 [facility] 200 mg 6-23 capsule by ity of capsule 00:00: mouth 3 [place] 00 (three) Medical times Branch daily as needed for Cough for up to 20 doses. ondansetron 2020-0 Yes [id number] 4mg Take 1 Univers (ZOFRAN 6-23 tablet by ity of ODT) 4 mg 00:00: mouth [place] disintegrat 00 every 8 Medic al ing tablet (eight) Branch hours as needed for Nausea and Vomiting (N/V). ibuprofen 2020-0 Yes [id number] 600mg Take 1 [facility] 600 mg 6-23 tablet by ity of tablet 00:00: mouth [place] 00 every 6 Medical (six) Branch hours as needed for Pain (scale 4-6). benzonatate 2020-0 Yes [id number] 200mg Take 1 [facility] 200 mg 6-23 capsule by ity of capsule 00:00: mouth (three) Medical times Branch daily as needed for Cough for up to 20 doses. ondansetron 2020-0 Yes [id number] 4mg Take 1 Univers (ZOFRAN 6-23 tablet by ity of ODT) 4 mg 00:00: mouth [place] disintegrat 00 every 8 Medic al ing tablet (eight) Branch hours as needed for Nausea and Vomiting (N/V). benzonatate 2020-0 Yes [id number] 200mg Take 1 [facility] 200 mg 6-23 capsule by ity of capsule 00:00: mouth (three) Medical times Branch daily as needed for Cough for up to 20 doses. benzonatate 2020-0 Yes [id number] 200mg Take 1 [facility] 200 mg 6-23 capsule by ity of capsule 00:00: mouth (three) Medical times Branch daily as needed for Cough for up to 20 doses. benzonatate 2020-0 Yes [id number] 200mg Take 1 [facility] 200 mg 6-23 capsule by ity of capsule 00:00: mouth (three) Medical times Branch daily as needed for Cough for up to 20 doses. benzonatate 1-0 Yes [id number] 200mg Take 1 [facility] 200 mg 6-23 capsule by ity of capsule 00:00: mouth (three) Medical times Branch daily as needed for Cough for up to 20 doses. benzonatate 1-0 Yes [id number] 200mg Take 1 [facility] 200 mg 6-23 capsule by ity of capsule 00:00: mouth (three) Medical times Branch daily as needed for Cough for up to 20 doses. benzonatate 2020-0 Yes [id number] 200mg Take 1 [facility] 200 mg 6-23 capsule by ity of capsule 00:00: mouth 3 (three) Medical times Branch daily as needed for Cough for up to 20 doses. benzonatate 2020-0 Yes [id number] 200mg Take 1 [facility] 200 mg 6-23 capsule by ity of capsule 00:00: mouth (three) Medical times Branch daily as needed for Cough for up to 20 doses. benzonatate 2020-0 Yes [id number] 200mg Take 1 [facility] 200 mg 6-23 capsule by ity of capsule 00:00: mouth (three) Medical times Branch daily as needed for Cough for up to 20 doses. benzonatate 2020-0 Yes [id number] 200mg Take 1 [facility] 200 mg 6-23 capsule by ity of capsule 00:00: mouth (three) Medical times Branch daily as needed for Cough for up to 20 doses. benzonatate 2020-0 Yes [id number] 200mg Take 1 [facility] 200 mg 6-23 capsule by ity of capsule 00:00: mouth (three) Medical times Branch daily as needed for Cough for up to 20 doses. benzonatate 2020-0 Yes [id number] 200mg Take 1 [facility] 200 mg 6-23 capsule by ity of capsule 00:00: mouth (three) Medical times Branch daily as needed for Cough for up to 20 doses. benzonatate 2020-0 2020- No [id number] 200mg Take 1 [facility] 200 mg 6-23 08-26 capsule by ity of capsule 00:00: 00:00 mouth 3 [place] 00 : (three) Medical times Branch daily as needed for Cough for up to 20 doses. benzonatate 2020-0 2021- No [id number] 200mg Take 1 [facility] 200 mg 6-23 08-26 capsule by ity of capsule 00:00: 00:00 mouth 3 [place] 00 :00 (three) Medical times Branch daily as needed for Cough for up to 20 doses. benzonatate 2020-0 2021- No [id number] 200mg Take 1 [facility] 200 mg 6-23 08-26 capsule by ity of capsule 00:00: 00:00 mouth 3 [place] 00 :00 (three) Medical times Branch daily as needed for Cough for up to 20 doses. ibuprofen 2020- No [id number] 600mg Take 1 [facility] 600 mg 08-29-30 tablet by ity of tablet 00:00: 00:00 mouth [place] 00 :00 every 6 Medical (six) Branch hours as needed for Pain (scale 4-6). ondansetron 2020- No [id number] 4mg Take 1 Univers (ZOFRAN 08-2930 tablet [...] ity of 1,000 mg in 03:45: 03:13 [place], [place] NaCl 0.9% 00 :00 ONCE, 1 Medical (NS) 50 mL dose, [facility] ch MINI-BAG 05/13/20 at 2145, 50 mL
Reas on for Anti-Infec tive: Documented Infection< br>Documen con Infection Site: Urine
D uration of Therapy: Other (see Comments) NaCl 0.9% 2020- No 1000mL at 999 Uni vers (NS) bolus 05-14-08 mL/hr, ity of infusion 02:15: 02:38 1,000 mL, [place] as 1,000 mL 00 :00 IV Medical Infusion, Branch ONCE, 1 dose, [place] 05/13/20 at 2015, STAT ketorolac 2020- No 30mg 30 mg, Unive rs (TORADOL) 05-14-08 Slow IV ity of injection 01:30: 01:28 [place], [place] 30 mg 00 :00 ONCE, 1 Medical dose, [place] Branch 05/13/20 at 1930, SHAYNA
[facility] member approving Restricted medication : Peace PAZ ibuprofen 2020-0 Yes [id number] 600mg Take 1 U nivers 600 mg 3-07 tablet by ity of tablet 00:00: mouth [place] 00 every 6 Medical (six) Branch hours as needed for Pain (scale 4-6). ondansetron 2020-0 Yes [id number] 4mg Take 1 Univers (ZOFRAN 3-07 tablet by ity of ODT) 4 mg 00:00: mouth [place] disintegrat 00 every 8 Medic al ing tablet (eight) Branch hours as needed for Nausea and Vomiting (N/V). ibuprofen 2020-0 Yes [id number] 600mg Take 1 U nivers 600 mg 3-07 tablet by ity of tablet 00:00: mouth [place] 00 every 6 Medical (six) Branch hours as needed for Pain (scale 4-6). ondansetron 0 Yes [id number] 4mg Take 1 Univers (ZOFRAN 3-07 tablet by ity of ODT) 4 mg 00:00: mouth [place] disintegrat 00 every 8 Medic al ing tablet (eight) Branch hours as needed for Nausea and Vomiting (N/V). ibuprofen 0 Yes [id number] 600mg Take 1 U nivers 600 mg 3-07 tablet by ity of tablet 00:00: mouth [place] 00 every 6 Medical (six) Branch hours as needed for Pain (scale 4-6). ondansetron 2020-0 Yes [id number] 4mg Take 1 Univers (ZOFRAN 3-07 tablet by ity of ODT) 4 mg 00:00: mouth [place] disintegrat 00 every 8 Medic al ing tablet (eight) Branch hours as needed for Nausea and Vomiting (N/V). ibuprofen 2020-0 Yes [id number] 600mg Take 1 U nivers 600 mg 3-07 tablet by ity of tablet 00:00: mouth [place] 00 every 6 Medical (six) Branch hours as needed for Pain (scale 4-6). ondansetron 2020-0 Yes [id number] 4mg Take 1 Univers (ZOFRAN 3-07 tablet by ity of ODT) 4 mg 00:00: mouth [place] disintegrat 00 every 8 Medic al ing tablet (eight) Branch hours as needed for Nausea and Vomiting (N/V). ibuprofen 2020-0 Yes [id number] 600mg Take 1 U nivers 600 mg 3-07 tablet by ity of tablet 00:00: mouth [place] 00 every 6 Medical (six) Branch hours as needed for Pain (scale 4-6). ondansetron 2020-0 Yes [id number] 4mg Take 1 Univers (ZOFRAN 3-07 tablet by ity of ODT) 4 mg 00:00: mouth [place] disintegrat 00 every 8 Medic al ing tablet (eight) Branch hours as needed for Nausea and Vomiting (N/V). ibuprofen 2020-0 Yes [id number] 600mg Take 1 U nivers 600 mg 3-07 tablet by ity of tablet 00:00: mouth [place] 00 every 6 Medical (six) Branch hours as needed for Pain (scale 4-6). ondansetron 2020-0 Yes [id number] 4mg Take 1 Univers (ZOFRAN 3-07 tablet by ity of ODT) 4 mg 00:00: mouth [place] disintegrat 00 every 8 Medic al ing tablet (eight) Branch hours as needed for Nausea and Vomiting (N/V). ibuprofen 2020-0 Yes [id number] 600mg Take 1 U nivers 600 mg 3-07 tablet by ity of tablet 00:00: mouth [place] 00 every 6 Medical (six) Branch hours as needed for Pain (scale 4-6). ondansetron 2020-0 Yes [id number] 4mg Take 1 Univers (ZOFRAN 3-07 tablet by ity of ODT) 4 mg 00:00: mouth [place] disintegrat 00 every 8 Medic al ing tablet (eight) Branch hours as needed for Nausea and Vomiting (N/V). ibuprofen 2020-0 Yes [id number] 600mg Take 1 U nivers 600 mg 3-07 tablet by ity of tablet 00:00: mouth [place] 00 every 6 Medical (six) Branch hours as needed for Pain (scale 4-6). ondansetron 2021-0 Yes [id number] 4mg Take 1 Univers (ZOFRAN 3-07 tablet by ity of ODT) 4 mg 00:00: mouth [place] disintegrat 00 every 8 Medic al ing tablet (eight) Branch hours as needed for Nausea and Vomiting (N/V). ibuprofen 2020-0 Yes [id number] 600mg Take 1 U nivers 600 mg 3-07 tablet by ity of tablet 00:00: mouth [place] 00 every 6 Medical (six) Branch hours as needed for Pain (scale 4-6). ondansetron 2021-0 Yes [id number] 4mg Take 1 Univers (ZOFRAN 3-07 tablet by ity of ODT) 4 mg 00:00: mouth [place] disintegrat 00 every 8 Medic al ing tablet (eight) Branch hours as needed for Nausea and Vomiting (N/V). ibuprofen 2020-0 Yes [id number] 600mg Take 1 U nivers 600 mg 3-07 tablet by ity of tablet 00:00: mouth [place] 00 every 6 Medical (six) Branch hours as needed for Pain (scale 4-6). ondansetron 2020-0 Yes [id number] 4mg Take 1 Univers (ZOFRAN 3-07 tablet by ity of ODT) 4 mg 00:00: mouth [place] disintegrat 00 every 8 Medic al ing tablet (eight) Branch hours as needed for Nausea and Vomiting (N/V). ibuprofen 2020-0 Yes [id number] 600mg Take 1 U nivers 600 mg 3-07 tablet by ity of tablet 00:00: mouth [place] 00 every 6 Medical (six) Branch hours as needed for Pain (scale 4-6). ondansetron 1-0 Yes [id number] 4mg Take 1 Univers (ZOFRAN 3-07 tablet by ity of ODT) 4 mg 00:00: mouth [place] disintegrat 00 every 8 Medic al ing tablet (eight) Branch hours as needed for Nausea and Vomiting (N/V). ibuprofen 2020-0 Yes [id number] 600mg Take 1 U nivers 600 mg 3-07 tablet by ity of tablet 00:00: mouth [place] 00 every 6 Medical (six) Branch hours as needed for Pain (scale 4-6). ondansetron 2021-0 Yes [id number] 4mg Take 1 Univers (ZOFRAN 3-07 tablet by ity of ODT) 4 mg 00:00: mouth [place] disintegrat 00 every 8 Medic al ing tablet (eight) Branch hours as needed for Nausea and Vomiting (N/V). ibuprofen 202-0 Yes [id number] 600mg Take 1 U nivers 600 mg 3-07 tablet by ity of tablet 00:00: mouth [place] 00 every 6 Medical (six) Branch hours as needed for Pain (scale 4-6). ondansetron 2021-0 Yes [id number] 4mg Take 1 Univers (ZOFRAN 3-07 tablet by ity of ODT) 4 mg 00:00: mouth [place] disintegrat 00 every 8 Medic al ing tablet (eight) Branch hours as needed for Nausea and Vomiting (N/V). ibuprofen 2020-0 Yes [id number] 600mg Take 1 U nivers 600 mg 3-07 tablet by ity of tablet 00:00: mouth [place] 00 every 6 Medical (six) Branch hours as needed for Pain (scale 4-6). ondansetron 202-0 Yes [id number] 4mg Take 1 Univers (ZOFRAN 3-07 tablet by ity of ODT) 4 mg 00:00: mouth [place] disintegrat 00 every 8 Medic al ing tablet (eight) Branch hours as needed for Nausea and Vomiting (N/V). ibuprofen 2020-0 Yes [id number] 600mg Take 1 U nivers 600 mg 3-07 tablet by ity of tablet 00:00: mouth [place] 00 every 6 Medical (six) Branch hours as needed for Pain (scale 4-6). ondansetron 2020-0 Yes [id number] 4mg Take 1 Univers (ZOFRAN 3-07 tablet by ity of ODT) 4 mg 00:00: mouth [place] disintegrat 00 every 8 Medic al ing tablet (eight) Branch hours as needed for Nausea and Vomiting (N/V). ibuprofen 2020-0 Yes [id number] 600mg Take 1 U nivers 600 mg 3-07 tablet by ity of tablet 00:00: mouth [place] 00 every 6 Medical (six) Branch hours as needed for Pain (scale 4-6). ondansetron 2021-0 Yes [id number] 4mg Take 1 [facility] (ZOFRAN 3-07 tablet by ity of ODT) 4 mg 00:00: mouth [place] disintegrat 00 every 8 Medic al ing tablet (eight) Branch hours as needed for Nausea and Vomiting (N/V). ibuprofen 2021-0 Yes [id number] 600mg Take 1 U nivers 600 mg 3-07 tablet by ity of tablet 00:00: mouth [place] 00 every 6 Medical (six) Branch hours as needed for Pain (scale 4-6). ibuprofen 2021-0 Yes [id number] 600mg Take 1 U nivers 600 mg 3-07 tablet by ity of tablet 00:00: mouth [place] 00 every 6 Medical (six) Branch hours as needed for Pain (scale 4-6). ibuprofen 2020-0 Yes [id number] 600mg Take 1 U nivers 600 mg 3-07 tablet by ity of tablet 00:00: mouth [place] 00 every 6 Medical (six) Branch hours as needed for Pain (scale 4-6). ibuprofen 2020-0 Yes [id number] 600mg Take 1 U nivers 600 mg 3-07 tablet by ity of tablet 00:00: mouth [place] 00 every 6 Medical (six) Branch hours as needed for Pain (scale 4-6). ibuprofen 2020-0 Yes [id number] 600mg Take 1 U nivers 600 mg 3-07 tablet by ity of tablet 00:00: mouth [place] 00 every 6 Medical (six) Branch hours as needed for Pain (scale 4-6). ibuprofen 2020-0 Yes [id number] 600mg Take 1 U nivers 600 mg 3-07 tablet by ity of tablet 00:00: mouth [place] 00 every 6 Medical (six) Branch hours as needed for Pain (scale 4-6). ibuprofen 2020-0 Yes [id number] 600mg Take 1 U nivers 600 mg 3-07 tablet by ity of tablet 00:00: mouth [place] 00 every 6 Medical (six) Branch hours as needed for Pain (scale 4-6). ibuprofen 2020-0 Yes [id number] 600mg Take 1 U nivers 600 mg 3-07 tablet by ity of tablet 00:00: mouth [place] 00 every 6 Medical (six) Branch hours as needed for Pain (scale 4-6). ibuprofen 2020-0 Yes [id number] 600mg Take 1 U nivers 600 mg 3-07 tablet by ity of tablet 00:00: mouth [place] 00 every 6 Medical (six) Branch hours as needed for Pain (scale 4-6). ibuprofen 2021-0 Yes [id number] 600mg Take 1 U nivers 600 mg 3-07 tablet by ity of tablet 00:00: mouth [place] 00 every 6 Medical (six) Branch hours as needed for Pain (scale 4-6). ibuprofen 1-0 Yes [id number] 600mg Take 1 U nivers 600 mg 3-07 tablet by ity of tablet 00:00: mouth [place] 00 every 6 Medical (six) Branch hours as needed for Pain (scale 4-6). ibuprofen 2020- No [id number] 600mg Take 1 [facility] 600 mg 05-13 tablet by ity of tablet 00:00: 00:00 mouth [place] 00 :00 every 6 Medical (six) Branch hours as needed for Pain (scale 4-6). ibuprofen 2020- No [id number] 600mg Take 1 [facility] 600 mg 05-13 tablet by ity of tablet 00:00: 00:00 mouth [place] 00 :00 every 6 Medical (six) Branch hours as needed for Pain (scale 4-6). ibuprofen 2020- No [id number] 600mg Take 1 [facility] 600 mg 05-13 tablet by ity of tablet 00:00: 00:00 mouth [place] 00 :00 every 6 Medical (six) Branch hours as needed for Pain (scale 4-6). ondansetron 2020- No [id number] 4mg Take 1 Univers (ZOFRAN 05-13 tablet by ity of ODT) 4 mg 00:00: 00:00 mouth [place] disintegrat 00 :00 every 8 Medic al ing tablet (eight) Branch hours as needed for Nausea and Vomiting (N/V). cephALEXin 2020- No [id number] 500mg Take 1 Univers (KEFLEX) 05-13-18 capsule by ity of 500 mg 00:00: 04:59 mouth 3 [place] capsule 00 :00 (three) Medical times Branch daily for 10 days. metroNIDAZO 2019-03- No [id number] 500mg Take 1 Univers LE 500 mg 03-2121 tablet by ity of tablet 00:00: 05:59 mouth 2 [place] 00 :00 (two) Medical times Branch daily for 7 days. metroNIDAZO 2019-03- No [id number] 500mg Take 1 Univers LE 500 mg 03-21-21 tablet by ity of tablet 00:00: 05:59 mouth 2 [place] 00 :00 (two) Medical times Branch daily for 7 days. azithromyci 2019-03- No [id number] 1000mg Take 2 Univers n 500 mg 0-14 10-16 tablets by ity of tablet 00:00: 04:59 mouth [place] 00 :00 daily for Medical 1 day. Branch azithromyci 2019-03 2020- No [id number] 1000mg Take 2 Univers n 500 mg 0-14 10-16 tablets by ity of tablet 00:00: 04:59 mouth [place] 00 :00 daily for Medical 1 day. Branch fluconazole 2020- No [id number] 150mg Take 1 Univers (DIFLUCAN) 8-17 08-18 tablet by ity of 150 mg 00:00: 04:59 mouth [place] tablet 00 :00 now for 1 Medical dose. Branch metroNIDAZO 2020- No [id number] 500mg Take 1 Univers LE (FLAGYL) 7-22 07-30 tablet by it y of 500 mg 00:00: 04:59 mouth 2 [place] tablet 00 :00 (two) Medical times Silva daily for 7 days. topiramate 2020-0 Yes 100mg Take 100 Un a[facility]ree (TOPAMAX) 7-21 mg by ity of 100 mg 19:33: mouth. [address] topiramate 2020-0 Yes 100mg Take 100 Un [place] (TOPAMAX) 7-21 mg by ity of 100 mg 19:33: mouth. [place] tablet [address] [place] [address] topiramate 2020-0 Yes 100mg Take 100 Un [place] (TOPAMAX) 7-21 mg by ity of 100 mg 19:33: mouth. [address] topiramate 2020-0 Yes 100mg Take 100 Un [place] (TOPAMAX) 7-21 mg by ity of 100 mg 19:33: mouth. [address] topiramate 2020-0 Yes 100mg Take 100 Un [place] (TOPAMAX) 7-21 mg by ity of 100 mg 19:33: mouth. [address] topiramate 2020-0 Yes 100mg Take 100 Un [place] (TOPAMAX) 7-21 mg by ity of 100 mg 19:33: mouth. [address] topiramate 2020-0 Yes 100mg Take 100 Un [place] (TOPAMAX) 7-21 mg by ity of 100 mg 19:33: mouth. [address] topiramate 2020-0 Yes 100mg Take 100 Un [place] (TOPAMAX) 7-21 mg by ity of 100 mg 19:33: mouth. [place] tablet [address] [place] [address] topiramate 2020-0 Yes 100mg Take 100 Un [place] (TOPAMAX) 7-21 mg by ity of 100 mg 19:33: mouth. [place] tablet [address] [place] [address] topiramate 2020-0 Yes 100mg Take 100 Un [place] (TOPAMAX) 7-21 mg by ity of 100 mg 19:33: mouth. [place] tablet [address] [place] [address] topiramate 2020-0 Yes 100mg Take 100 Un [place] (TOPAMAX) 7-21 mg by ity of 100 mg 19:33: mouth. [place] tablet [address] [place] [address] topiramate 2020-0 Yes 100mg Take 100 Un [place] (TOPAMAX) 7-21 mg by ity of 100 mg 19:33: mouth. [place] tablet [address] [place] [address] topiramate 2020-0 Yes 100mg Take 100 Un [place] (TOPAMAX) 7-21 mg by ity of 100 mg 19:33: mouth. [address] topiramate 2020-0 Yes 100mg Take 100 Un [place] (TOPAMAX) 7-21 mg by ity of 100 mg 19:33: mouth. [address] topiramate 2020-0 Yes 100mg Take 100 Un [place] (TOPAMAX) 7-21 mg by ity of 100 mg 19:33: mouth. [address] topiramate 2020-0 Yes 100mg Take 100 Un [place] (TOPAMAX) 7-21 mg by ity of 100 mg 19:33: mouth. [place] tablet [address] [place] [address] topiramate 2020-0 Yes 100mg Take 100 [facility] (TOPAMAX) 7-21 mg by ity of 100 mg 19:33: mouth. [address] topiramate 2020-0 Yes 100mg Take 100 [facility] [place] (TOPAMAX) 7-21 mg by ity of 100 mg 19:33: mouth. [address] topiramate 2020-0 Yes 100mg Take 100 [facility] [place] (TOPAMAX) 7-21 mg by ity of 100 mg 19:33: mouth. [place] tablet [address] [place] [address] topiramate 2020-0 Yes 100mg Take 100 [facility] (TOPAMAX) 7-21 mg by ity of 100 mg 19:33: mouth. [address] topiramate 2020-0 Yes 100mg Take 100 [facility] [place] (TOPAMAX) 7-21 mg by ity of 100 mg 19:33: mouth. [place] tablet [address] [place] [address] topiramate 2020-0 Yes 100mg Take 100 [facility] [place] (TOPAMAX) 7-21 mg by ity of 100 mg 19:33: mouth. [place] tablet [address] [place] [address] topiramate 2020-0 Yes 100mg Take 100 [facility] [place] (TOPAMAX) 7-21 mg by ity of 100 mg 19:33: mouth. [place] tablet [address] [place] [address] topiramate 2020-0 Yes 100mg Take 100 [facility] [place] (TOPAMAX) 7-21 mg by ity of 100 mg 19:33: mouth. [place] tablet [address] [place] [address] topiramate 2020-0 Yes 100mg Take 100 [facility] [place] (TOPAMAX) 7-21 mg by ity of 100 mg 19:33: mouth. [place] tablet [address] [place] [address] topiramate 2020-0 Yes 100mg Take 100 [facility] [place] (TOPAMAX) 7-21 mg by ity of 100 mg 19:33: mouth. [address] topiramate 2020-0 Yes 100mg Take 100 [facility] [place] (TOPAMAX) 7-21 mg by ity of 100 mg 19:33: mouth. [place] tablet [address] [place] [address] topiramate 2020-0 Yes 100mg Take 100 [facility] [place] (TOPAMAX) 7-21 mg by ity of 100 mg 19:33: mouth. [place] tablet [address] [place] [address] topiramate 2020-0 Yes 100mg Take 100 [facility] [place] (TOPAMAX) 7-21 mg by ity of 100 mg 19:33: mouth. [place] tablet [address] [place] [address] topiramate 2020-0 Yes 100mg Take 100 [facility] [place] (TOPAMAX) 7-21 mg by ity of 100 mg 19:33: mouth. [place] tablet [address] [place] [address] topiramate 2020-0 Yes 100mg Take 100 [facility] [place] (TOPAMAX) 7-21 mg by ity of 100 mg 19:33: mouth. [place] tablet [address] [place] [address] topiramate 2020-0 Yes 100mg Take 100 [facility] [place] (TOPAMAX) 7-21 mg by ity of 100 mg 19:33: mouth. [place] tablet [address] [place] [address] topiramate 2020-0 Yes 100mg Take 100 Un [...] tablet 15 Medical Branch montelukast 2020-0 Yes [id number] 10mg Take 1 [facility] 10 mg 6-11 tablet by ity of tablet 00:00: mouth [place] 00 daily. Medical Branch loratadine 2020-0 Yes [id number] 10mg Take 1 [facility] 10 mg 6-11 tablet by ity of tablet 00:00: mouth [place] 00 daily. Medical Branch benzonatate 2020-0 Yes [id number] 100mg Take 1 [facility] 100 mg 6-11 capsule by ity of capsule 00:00: mouth 3 [place] 00 (three) Medical times Branch daily as needed for Cough. montelukast 2019-0 Yes [id number] 10mg Take 1 [facility] 10 mg 6-11 tablet by ity of tablet 00:00: mouth [place] 00 daily. Medical Branch loratadine 2019-0 Yes [id number] 10mg Take 1 [facility] 10 mg 6-11 tablet by ity of tablet 00:00: mouth [place] 00 daily. Medical Branch benzonatate 2020-0 Yes [id number] 100mg Take 1 [facility] 100 mg 6-11 capsule by ity of capsule 00:00: mouth 3 [place] 00 (three) Medical times Branch daily as needed for Cough. montelukast 2019-0 2020- No [id number] 10mg Take 1 [facility] 10 mg 6-11 07-21 tablet by ity of tablet 00:00: 00:00 mouth [place] 00 :00 daily. Medical Branch loratadine 2020-0 2020- No [id number] 10mg Take 1 [facility] 10 mg 6-11 07-21 tablet by ity of tablet 00:00: 00:00 mouth [place] 00 :00 daily. Medical Branch benzonatate 2020-0 2020- No [id number] 100mg Take 1 [facility] 100 mg 6-11 07-21 capsule by ity of capsule 00:00: 00:00 mouth 3 [place] 00 :00 (three) Medical times Branch daily as needed for Cough. montelukast 2019-0 2020- No [id number] 10mg Take 1 [facility] 10 mg 6-11 07-21 tablet by ity of tablet 00:00: 00:00 mouth [place] 00 :00 daily. Medical Branch loratadine 2019- No [id number] 10mg Take 1 [facility] 10 mg 08-17 tablet by ity of tablet 00:00: 00:00 mouth [place] 00 :00 daily. Medical Branch benzonatate 2019- No [id number] 100mg Take 1 [facility] 100 mg 08-17 capsule by ity of capsule 00:00: 00:00 mouth 3 [place] 00 :00 (three) Medical times Branch daily as needed for Cough. QUEtiapine 2019- No TAKE 1 [facility] 25 mg 08-12 TABLET BY ity of tablet 00:00: 00:00 [place]CE [place] 00 [place] [facility] BEDTIME Branch QUEtiapine 2019- No TAKE 1 [facility] ers 25 mg 08-12 TABLET BY ity of tablet 00:00: 00:00 M[place]TH [place]CE [place] 00 [place] DA[place] [facility] iohexol 2019- No 120mL 120 mL, Un[facility] (OMNIPAQUE 07-28 Intravenou it y of 350 04:15: 04:15 s, ONCE, 1 [place] BULK-150 00 :00 dose, [facility]) 07/28/19 at [place] injection 2315, 120 mL Routine guaiFENesin 2019- No 200mg 200 mg, U nivers 100 mg/5 mL 07-27 Oral, ity of solution 23:30: 00:27 ONCE, 1 [place] 200 mg 00 :00 dose, [facility] 07/28/19 at Branch 1845, SHAYNA albuterol 2019- No 2{puff} 2 Puff, U nivers (VENTOLIN) 07-27 Inhalation it y of inhaler 2 23:30: 00:28 , ONCE, 1 [place] Puff 00 :00 dose, [facility] 07/28/19 at [place] [id number], SHAYNA
Is this order for a patient with suspected or confirmed COVID-19 infection? Yes dextrometho 2019- Yes [id number] 10mL Take 10 mL [facility] rphan-guaif 07-27 by mouth ity of enesin 00:00: every 8 [place] 10-100 mg/5 00 (eight) Medic al mL solution hours as Bran ch needed for Cough. albuterol 2020-0 Yes [id number] 2{puff} Inhale 2 [facility] 90 5-21 Puffs ity of mcg/actuati 00:00: every 4 [place] as on inhaler 00 (four) Medical hours as Branch needed for Wheezing, Shortness of Breath or Chest tightness. dextrometho 2020-0 Yes [id number] 10mL Take 10 mL [facility] rphan-guaif 5-21 by mouth ity of enesin 00:00: every 8 [place] 10-100 mg/5 00 (eight) Medic al mL solution hours as Bran ch needed for Cough. albuterol 2020-0 Yes [id number] 2{puff} Inhale 2 [facility] 90 5-21 Puffs ity of mcg/actuati 00:00: every 4 [place] on inhaler 00 (four) Medical hours as Branch needed for Wheezing, Shortness of Breath or Chest tightness. dextrometho 2020-0 Yes [id number] 10mL Take 10 mL [facility] rphan-guaif 5-21 by mouth ity of enesin 00:00: every 8 [place] 10-100 mg/5 00 (eight) Medic al mL solution hours as Bran ch needed for Cough. albuterol 2020-0 Yes [id number] 2{puff} Inhale 2 [facility] 90 5-21 Puffs ity of mcg/actuati 00:00: every 4 [place] on inhaler 00 (four) Medical hours as Branch needed for Wheezing, Shortness of Breath or Chest tightness. dextrometho 2020-0 Yes [id number] 10mL Take 10 mL [facility] rphan-guaif 5-21 by mouth ity of enesin 00:00: every 8 [place] 10-100 mg/5 00 (eight) Medic al mL solution hours as Bran ch needed for Cough. albuterol 2020-0 Yes [id number] 2{puff} Inhale 2 [facility] 90 5-21 Puffs ity of mcg/actuati 00:00: every 4 [place] on inhaler 00 (four) Medical hours as Branch needed for Wheezing, Shortness of Breath or Chest tightness. dextrometho 2020-0 Yes [id number] 10mL Take 10 mL [facility] rphan-guaif 5-21 by mouth ity of enesin 00:00: every 8 [place] 10-100 mg/5 00 (eight) Medic al mL solution hours as Bran ch needed for Cough. albuterol Yes [id number] 2{puff} Inhale 2 [facility] 90 5-21 Puffs ity of mcg/actuati 00:00: every 4 [place] on inhaler 00 (four) Medical hours as Branch needed for Wheezing, Shortness of Breath or Chest tightness. dextrometho 2019- No [id number] 10mL Take 10 mL [facility] rphan-guaif 5-21 07-21 by mouth ity of enesin 00:00: 00:00 every 8 [place] 10-100 mg/5 00 :00 (eight) Medic al mL solution hours as Bran ch needed for Cough. albuterol 2020- No [id number] 2{puff} Inhale 2 [facility] 90 5-21 07-21 Puffs ity of mcg/actuati 00:00: 00:00 every 4 [place] inhaler 00 :00 (four) Medical hours as Branch needed for Wheezing, Shortness of Breath or Chest tightness. dextrometho 2020- No [id number] 10mL Take 10 mL [facility] rphan-guaif 5-21 07-21 by mouth ity of enesin 00:00: 00:00 every 8 [place] 10-100 mg/5 00 :00 (eight) Medic al mL solution hours as Bran ch needed for Cough. albuterol 2020- No [id number] 2{puff} Inhale 2 [facility] 90 5-21 07-21 Puffs ity of mcg/actuati 00:00: 00:00 every 4 [place] inhaler 00 :00 (four) Medical hours as Branch needed for Wheezing, Shortness of Breath or Chest tightness. predniSONE 2019- 2020- No [id number] 30mg Take 3 [facility] 10 mg 5-21 05-26 tablets by ity of tablet 00:00: 04:59 mouth [place] 00 :00 daily for Medical 4 days. Branch predniSONE 2020- No [id number] 30mg Take 3 [facility] 10 mg 5-21 05-26 tablets by ity of tablet 00:00: 04:59 mouth [place] 00 :00 daily for Medical 4 days. Branch levonorgest 2019-0 Yes [id number] 1{tbl} Take 1 [facility] rel-ethinyl 5-11 tablet by ity of estradiol 00:00: mouth [place] (SRONYX) 00 daily. Medical 0.1-20 Branch mg-mcg per tablet levonorgest 2020-0 Yes [id number] 1{tbl} Take 1 [facility] rel-ethinyl 5-11 tablet by ity of estradiol 00:00: mouth [place] (SRONYX) 00 daily. Medical 0.1-20 Branch mg-mcg per tablet levonorgest 2020-0 Yes [id number] 1{tbl} Take 1 [facility] rel-ethinyl 5-11 tablet by ity of estradiol 00:00: mouth [place] (SRONYX) 00 daily. Medical 0.1-20 Branch mg-mcg per tablet levonorgest 2020-0 Yes [id number] 1{tbl} Take 1 [facility] rel-ethinyl 5-11 tablet by ity of estradiol 00:00: mouth [place] (SRONYX) 00 daily. Medical 0.1-20 Branch mg-mcg per tablet levonorgest 2020-0 Yes [id number] 1{tbl} Take 1 [facility] rel-ethinyl 5-11 tablet by ity of estradiol 00:00: mouth [place] (SRONYX) 00 daily. Medical 0.1-20 Branch mg-mcg per tablet levonorgest 2020-0 Yes [id number] 1{tbl} Take 1 [facility] rel-ethinyl 5-11 tablet by ity of estradiol 00:00: mouth [place] (SRONYX) 00 daily. Medical 0.1-20 Branch mg-mcg per tablet levonorgest 2020-0 2020- No [id number] 1{tbl} Take 1 [facility] rel-ethinyl 5-11 07-21 tablet by it y of estradiol 00:00: 00:00 mouth [place] (SRONYX) 00 :00 daily. Medical 0.1-20 Branch mg-mcg per tablet levonorgest 2020-0 2020- No [id number] 1{tbl} Take 1 [facility] rel-ethinyl 5-11 07-21 tablet by it y of estradiol 00:00: 00:00 mouth [place] (SRONYX) 00 :00 daily. Medical 0.1-20 Branch mg-mcg per tablet divalproex 2020-0 2020- No TAKE 1 Univ ers ER 500 mg 07-12 TABLET BY ity of 24 hr 00:00: 00:00 MOUTH ONCE [place] tablet 00 :00 DAILY AT Medical BEDTIME Branch divalproex 2019- 2020- No TAKE 1 Univ ers ER 500 mg 07-12- TABLET BY ity of 24 hr 00:00: 00:00 MOUTH ONCE [place] tablet 00 :00 DAILY AT Medical BEDTIME Branch acetaminoph 2019-2019- No 1{tbl} 1 tablet, [facility] en-codeine 06-26 Oral, ity of (TYLENOL 01:45: 01:56 ONCE, 1 [place] #3) 300-30 00 :00 dose, [facility] tablet 1 06/26/19 at Br anch tablet 2044, SHAYNA ketorolac 2019- No 30mg 30 mg, Unive rs (TORADOL) 06-26 Intramuscu ity of injection 00:30: 00:37 lar, ONCE, [place] 30 mg 00 :00 1 dose, [facility] Branch 06/26/19 at 1930, SHAYNA
Fa culty member approving Restricted medication : LORY PIMENTEL I naproxen 2019-0 Yes [id number] 500mg Take 1 [facility] (NAPROSYN) 4-19 tablet by ity of 500 mg 00:00: mouth 2 [place] tablet 00 (two) Medical times Branch daily with meals. naproxen 2020-0 Yes [id number] 500mg Take 1 [facility] [place] (NAPROSYN) 4-19 tablet by ity of 500 mg 00:00: mouth 2 [place] tablet 00 (two) Medical times Branch daily with meals. naproxen 2020-0 Yes [id number] 500mg Take 1 [facility] [place] (NAPROSYN) 4-19 tablet by ity of 500 mg 00:00: mouth 2 [place] tablet 00 (two) Medical times Branch daily with meals. naproxen 2020-0 Yes [id number] 500mg Take 1 [facility] [place] (NAPROSYN) 4-19 tablet by ity of 500 mg 00:00: mouth 2 [place] tablet 00 (two) Medical times Branch daily with meals. naproxen 2020-0 Yes [id number] 500mg Take 1 [facility] [place] (NAPROSYN) 4-19 tablet by ity of 500 mg 00:00: mouth 2 [place] tablet 00 (two) Medical times Branch daily with meals. naproxen 2020-0 Yes [id number] 500mg Take 1 [facility] [place] (NAPROSYN) 4-19 tablet by ity of 500 mg 00:00: mouth 2 [place] tablet 00 (two) Medical times Branch daily with meals. naproxen 2020-0 Yes [id number] 500mg Take 1 [facility] [place] (NAPROSYN) 4-19 tablet by ity of 500 mg 00:00: mouth 2 [place] tablet 00 (two) Medical times Branch daily with meals. naproxen 2019-0 2020- No [id number] 500mg Take 1 [facility] (NAPROSYN) 4-19 07-21 tablet by ity of 500 mg 00:00: 00:00 mouth 2 [place] tablet 00 :00 (two) Medical times Branch daily with meals. naproxen 2019- 2020- No [id number] 500mg Take 1 [facility] (NAPROSYN) 4-19 07-21 tablet by ity of 500 mg 00:00: 00:00 mouth 2 [place] tablet 00 :00 (two) Medical times Branch daily with meals. cephALEXin 2019- 2020- No [id number] 500mg Take 1 Univers (KEFLEX) 4-19 04-30 capsule by ity of 500 mg 00:00: 04:59 mouth 2 [place] capsule 00 :00 (two) Medical times Branch daily for 10 days. azithromyci 2019- 2020- No [id number] 1000mg Take 2 Univers n 3-12 03-13 tablets by ity of (ZITHROMAX) 00:00: 04:59 mouth once [place] 500 mg 00 :00 now for 1 Medical tablet dose. Branch Nitrofurant 2019- 2020- No [id number] 100mg Take 1 [facility] oin&Nit. 3-10 03-18 capsule by ity of Macrocryst 00:00: 04:59 mouth 2 [place] (MACROBID) 00 :00 (two) Medical 100 mg times Branch capsule daily for 7 days. Nitrofurant 2019- 2020- No [id number] 100mg Take 1 [facility] oin&Nit. 3-10 03-18 capsule by ity of Macrocryst 00:00: 04:59 mouth 2 [place] (MACROBID) 00 :00 (two) Medical 100 mg times Branch capsule daily for 7 days. Nitrofurant 2019-0 2020- No [id number] 100mg Take 1 [facility] oin&Nit. 3-10 -18 capsule by ity of Macrocryst 00:00: 04:59 mouth 2 [place] (MACROBID) 00 :00 (two) Medical 100 mg times Branch capsule daily for 7 days. Nitrofurant 2020-0 2020- No [id number] 100mg Take 1 [facility] oin&Nit. 3-10 -18 [...] at Branch 1415, Routine levETIRAcet 2020-0 Yes [id number] 1500mg Take 2 [facility] am (KEPPRA) 2-12 tablets by it y of 750 mg 00:00: mouth 2 [place] tablet 00 (two) Medical times Branch daily. levETIRAcet 2020-0 Yes [id number] 1500mg Take 2 [facility] am (KEPPRA) 2-12 tablets by it y of 750 mg 00:00: mouth 2 [place] tablet 00 (two) Medical times Branch daily. levETIRAcet 2020-0 Yes [id number] 1500mg Take 2 [facility] am (KEPPRA) 2-12 tablets by it y of 750 mg 00:00: mouth 2 [place] tablet 00 (two) Medical times Branch daily. levETIRAcet 2020-0 Yes [id number] 1500mg Take 2 Univers am (KEPPRA) 2-12 tablets by it y of 750 mg 00:00: mouth 2 [place] tablet 00 (two) Medical times Branch daily. levETIRAcet 2020-0 Yes [id number] 1500mg Take 2 [facility] am (KEPPRA) 2-12 tablets by it y of 750 mg 00:00: mouth 2 [place] tablet 00 (two) Medical times Branch daily. levETIRAcet 2020-0 Yes [id number] 1500mg Take 2 [facility] am (KEPPRA) 2-12 tablets by it y of 750 mg 00:00: mouth 2 [place] tablet 00 (two) Medical times Branch daily. levETIRAcet 2020-0 Yes [id number] 1500mg Take 2 [facility] am (KEPPRA) 2-12 tablets by it y of 750 mg 00:00: mouth 2 [place] tablet 00 (two) Medical times Branch daily. levETIRAcet 2020-0 Yes [id number] 1500mg Take 2 [facility] am (KEPPRA) 2-12 tablets by it y of 750 mg 00:00: mouth 2 [place] tablet 00 (two) Medical times Branch daily. levETIRAcet 2020-0 Yes [id number] 1500mg Take 2 [facility] am (KEPPRA) 2-12 tablets by it y of 750 mg 00:00: mouth 2 [place] tablet 00 (two) Medical times Branch daily. levETIRAcet 2020-0 Yes [id number] 1500mg Take 2 [facility] am (KEPPRA) 2-12 tablets by it y of 750 mg 00:00: mouth 2 [place] tablet 00 (two) Medical times Branch daily. levETIRAcet 2020-0 Yes [id number] 1500mg Take 2 [facility] am (KEPPRA) 2-12 tablets by it y of 750 mg 00:00: mouth 2 [place] tablet 00 (two) Medical times Branch daily. levETIRAcet 2020-0 Yes [id number] 1500mg Take 2 [facility] am (KEPPRA) 2-12 tablets by it y of 750 mg 00:00: mouth 2 [place] tablet 00 (two) Medical times Branch daily. levETIRAcet 2020-0 Yes [id number] 1500mg Take 2 [facility] am (KEPPRA) 2-12 tablets by it y of 750 mg 00:00: mouth 2 [place] tablet 00 (two) Medical times Branch daily. levETIRAcet 2020-0 Yes [id number] 1500mg Take 2 [facility] am (KEPPRA) 2-12 tablets by it y of 750 mg 00:00: mouth 2 [place] tablet 00 (two) Medical times Branch daily. levETIRAcet 2020-0 Yes [id number] 1500mg Take 2 [facility] am (KEPPRA) 2-12 tablets by it y of 750 mg 00:00: mouth 2 [place] tablet 00 (two) Medical times Branch daily. levETIRAcet 2020-0 Yes [id number] 1500mg Take 2 [facility] am (KEPPRA) 2-12 tablets by it y of 750 mg 00:00: mouth 2 [place] tablet 00 (two) Medical times Branch daily. levETIRAcet 2020-0 Yes [id number] 1500mg Take 2 [facility] am (KEPPRA) 2-12 tablets by it y of 750 mg 00:00: mouth 2 [place] tablet 00 (two) Medical times Branch daily. levETIRAcet 2020-0 Yes [id number] 1500mg Take 2 [facility] am (KEPPRA) 2-12 tablets by it y of 750 mg 00:00: mouth 2 [place] tablet 00 (two) Medical times Branch daily. levETIRAcet 2020-0 Yes [id number] 1500mg Take 2 Univers am (KEPPRA) 2-12 tablets by it y of 750 mg 00:00: mouth 2 [place] tablet 00 (two) Medical times Branch daily. levETIRAcet 2020-0 Yes [id number] 1500mg Take 2 [facility] am (KEPPRA) 2-12 tablets by it y of 750 mg 00:00: mouth 2 [place] tablet 00 (two) Medical times Branch daily. levETIRAcet 2020-0 Yes [id number] 1500mg Take 2 [facility] am (KEPPRA) 2-12 tablets by it y of 750 mg 00:00: mouth 2 [place] tablet 00 (two) Medical times Branch daily. levETIRAcet 2020-0 Yes [id number] 1500mg Take 2 [facility] am (KEPPRA) 2-12 tablets by it y of 750 mg 00:00: mouth 2 [place] tablet 00 (two) Medical times Branch daily. levETIRAcet 2020-0 Yes [id number] 1500mg Take 2 [facility] am (KEPPRA) 2-12 tablets by it y of 750 mg 00:00: mouth 2 [place] tablet 00 (two) Medical times Branch daily. levETIRAcet 2020-0 2020- No [id number] 1500mg Take 2 [facility] am (KEPPRA) 2-12 -21 tablets by i ty of 750 mg 00:00: 00:00 mouth 2 [place] tablet 00 :00 (two) Medical times Branch daily. levETIRAcet 2020-0 2020- No [id number] 1500mg Take 2 Univers am (KEPPRA) 2-12 -21 tablets by i ty of 750 mg 00:00: 00:00 mouth 2 [place] tablet 00 :00 (two) Medical times Branch daily. azithromyci 2020-0 2020- No [id number] 1000mg Take 2 Univers n 500 mg -14 -16 tablets by ity of tablet 00:00: 05:59 mouth [place] 00 :00 daily for Medical 1 day. Luis azrosayci 2020-0 2020- No [id number] 1000mg Take 2 Univers n 500 mg -14 -16 tablets by ity of tablet 00:00: 05:59 mouth [place] 00 :00 daily for Medical 1 day. [place] NUVARING Yes [id number] 1{each} Insert 1 [facility] 0.12-0.015 4-15 Each into ity of mg/24 hr 00:00: vagina [place] vaginal 00 once every Medica l insert month. Branch Insert vaginally and leave in place for 3 consecutiv e weeks, then remove for 1 week. NUVARING Yes [id number] 1{each} Insert 1 [facility] 0.12-0.015 4-15 Each into ity of mg/24 hr 00:00: vagina [place] vaginal 00 once every Medica l insert month. Branch Insert vaginally and leave in place for 3 consecutiv e weeks, then remove for 1 week. NUVARING Yes [id number] 1{each} Insert 1 [facility] 0.12-0.015 4-15 Each into ity of mg/24 hr 00:00: vagina [place] vaginal 00 once every Medica l insert month. Branch Insert vaginally and leave in place for 3 consecutiv e weeks, then remove for 1 week. NUVARING Yes [id number] 1{each} Insert 1 [facility] 0.12-0.015 4-15 Each into ity of mg/24 hr 00:00: vagina [place] vaginal 00 once every Medica l insert month. Branch Insert vaginally and leave in place for 3 consecutiv e weeks, then remove for 1 week. NUVARING Yes [id number] 1{each} Insert 1 [facility] 0.12-0.015 4-15 Each into ity of mg/24 hr 00:00: vagina [place] vaginal 00 once every Medica l insert month. Branch Insert vaginally and leave in place for 3 consecutiv e weeks, then remove for 1 week. NUVARING Yes [id number] 1{each} Insert 1 [facility] 0.12-0.015 4-15 Each into ity of mg/24 hr 00:00: vagina [place] vaginal 00 once every Medica l insert month. Branch Insert vaginally and leave in place for 3 consecutiv e weeks, then remove for 1 week. NUVARING 2019- No [id number] 1{each} Insert 1 [facility] 0.12-0.015 4-15 03-10 Each into ity of mg/24 hr 00:00: 00:00 vagina [place] vaginal 00 :00 once every Medica l insert month. Branch Insert vaginally and leave in place for 3 consecutiv e weeks, then remove for 1 week. NUVARING 2019- No [id number] 1{each} Insert 1 Univers 0.12-0.015 -15 -10 Each into ity of mg/24 hr 00:00: 00:00 vagina [place] vaginal 00 :00 once every Medica l insert month. Branch Insert vaginally and leave in place for 3 consecutiv e weeks, then remove for 1 week. sulfamethox 2019-0 Yes [id number] 1{tbl} Take 1 [facility] azole-trime 3-29 [id number] tablet by i ty of thoprim 00:00: mouth [place] 800-160 mg 00 every 12 Medic al per tablet (twelve) Branc h hours. traMADOL 2019-0 Yes [id number] 50mg Take 1 [facility] (ULTRAM) 50 3-29 [id number] tablet by i ty of mg tablet 00:00: mouth [place] 00 every 6 Medical (six) Branch hours as needed for Pain (scale 4-6). sulfamethox 2019-0 Yes [id number] 1{tbl} Take 1 [facility] azole-trime 3-29 [id number] tablet by i ty of thoprim 00:00: mouth [place] 800-160 mg 00 every 12 Medic al per tablet (twelve) Branc h hours. traMADOL 2019-0 Yes [id number] 50mg Take 1 [facility] (ULTRAM) 50 3-29 [id number] tablet by i ty of mg tablet 00:00: mouth [place] 00 every 6 Medical (six) Branch hours as needed for Pain (scale 4-6). sulfamethox 2019-0 Yes [id number] 1{tbl} Take 1 [facility] azole-trime 3-29 [id number] tablet by i ty of thoprim 00:00: mouth [place] 800-160 mg 00 every 12 Medic al per tablet (twelve) Branc h hours. traMADOL 2019-0 Yes [id number] 50mg Take 1 [facility] (ULTRAM) 50 3-29 [id number] tablet by i ty of mg tablet 00:00: mouth [place] 00 every 6 Medical (six) Branch hours as needed for Pain (scale 4-6). sulfamethox 2019-0 Yes [id number] 1{tbl} Take 1 [facility] azole-trime 3-29 [id number] tablet by i ty of thoprim 00:00: mouth [place] 800-160 mg 00 every 12 Medic al per tablet (twelve) Branc h hours. traMADOL 2019-0 Yes [id number] 50mg Take 1 [facility] (ULTRAM) 50 3-29 [id number] tablet by i ty of mg tablet 00:00: mouth [place] 00 every 6 Medical (six) Branch hours as needed for Pain (scale 4-6). sulfamethox 2019-0 Yes [id number] 1{tbl} Take 1 [facility] azole-trime 3-29 [id number] tablet by i ty of thoprim 00:00: mouth [place] 800-160 mg 00 every 12 Medic al per tablet (twelve) Branc h hours. traMADOL 2019-0 Yes [id number] 50mg Take 1 [facility] (ULTRAM) 50 3-29 [id number] tablet by i ty of mg tablet 00:00: mouth [place] 00 every 6 Medical (six) Branch hours as needed for Pain (scale 4-6). sulfamethox 2019-0 Yes [id number] 1{tbl} Take 1 [facility] azole-trime 3-29 [id number] tablet by i ty of thoprim 00:00: mouth [place] 800-160 mg 00 every 12 Medic al per tablet (twelve) Branc h hours. traMADOL 2019-0 Yes [id number] 50mg Take 1 [facility] (ULTRAM) 50 3-29 [id number] tablet by i ty of mg tablet 00:00: mouth [place] 00 every 6 Medical (six) Branch hours as needed for Pain (scale 4-6). sulfamethox 2019-0 2020- No [id number] 1{tbl} Take 1 [facility] azole-trime 3-29 03-10 [id number] tablet by ity of thoprim 00:00: 00:00 mouth [place] 800-160 mg 00 :00 every 12 Medic al per tablet (twelve) Branc h hours. traMADOL 2019-0 2020- No [id number] 50mg Take 1 [facility] (ULTRAM) 50 06-04- [id number] tablet by ity of mg tablet 00:00: 00:00 mouth [place] 00 :00 every 6 Medical (six) Branch hours as needed for Pain (scale 4-6). sulfamethox 2019- No [id number] 1{tbl} Take 1 [facility] azole-trime 06-04- [id number] tablet by ity of thoprim 00:00: 00:00 mouth [place] 800-160 mg 00 :00 every 12 Medic al per tablet (twelve) Branc h hours. traMADOL 2019- No [id number] 50mg Take 1 [facility] (ULTRAM) 50 06-04 [id number] tablet by ity of mg tablet 00:00: 00:00 mouth [place] 00 :00 every 6 Medical (six) Branch hours as needed for Pain (scale 4-6). Immunizations Ordered Filled Immunization Date Status Comments [facility] e Immunization Name Name HPV9 2019-12-30 Completed [facility] of 00:00: [facility] HPV9 2019-12-30 Completed University of 00:00: [facility] HPV9 2019-12-30 Completed University of 00:00:00 [facility] HPV9 2019-12-30 Completed University of 00:00:00 [facility] HPV9 2019-12-30 Completed University of 00:00:00 [facility] HPV9 2019-12-30 Completed University of 00:00:00 [facility] HPV9 2019-12-30 Completed University of 00:00:00 [facility] HPV9 2019-12-30 Completed University of 00:00:00 [facility] HPV9 2019-12-30 Completed University of 00:00:00 [facility] HPV9 2019-12-30 Completed University of 00:00:00 [facility] HPV9 2019-12-30 Completed University of 00:00:00 [facility] HPV9 2019-12-30 Completed University of 00:00:00 [facility] HPV9 2019-12-30 Completed [facility] of 00:00:00 [facility] HPV9 2019-12-30 Completed [facility] of 00:00:00 [facility] HPV9 2019-12-30 Completed [facility] of 00:00:00 [facility] HPV9 2019-12-30 Completed [facility] of 00:00:00 [facility] HPV9 2019-12-30 Completed [facility] 00:00:00 [place] [...] Branch HPV9 2019-09-27 Completed [facility] 00:00:00 [facility] HPV9 2019-09-27 Completed [facility] of 00:00:00 [facility] HPV9 2019-09-27 Completed [facility] of 00:00:00 [facility] HPV9 2019-09-27 Completed [facility] of 00:00:00 [facility] HPV9 2019-09-27 Completed [facility] of 00:00:00 [facility] HPV9 2019-09-27 Completed [facility] of 00:00:00 [facility] HPV9 2019-09-27 Completed [facility] of 00:00:00 [facility] HPV9 2019-09-27 Completed [facility] 00:00:00 [facility] HPV9 2019-09-27 Completed [facility] of 00:00:00 [facility] HPV9 2019-09-27 Completed [facility] 00:00:00 [facility] HPV9 2019-09-27 Completed [facility] 00:00:00 [facility] HPV9 2019-09-27 Completed [facility] 00:00:00 [facility] HPV9 2019-09-27 Completed [facility] 00:00:00 [facility] HPV9 2019-09-27 Completed [facility] 00:00:00 [facility] HPV9 2019-09-27 Completed [facility] 00:00:00 [facility] HPV9 2019-09-27 Completed [facility] 00:00:00 [facility] HPV9 2019-09-27 Completed [facility] 00:00:00 [facility] HPV9 2019-09-27 Completed [facility] 00:00:00 [facility] HPV9 2019-09-27 Completed [facility] 00:00:00 [facility] HPV9 2019-09-27 Completed [facility] 00:00:00 [facility] HPV9 2019-09-27 Completed [facility] of 00:00:00 [facility] HPV9 2019-09-27 Completed [facility] 00:00:00 [facility] HPV9 2019-09-27 Completed [facility] 00:00:00 [facility] HPV9 2019-09-27 Completed [facility] 00:00:00 [facility] HPV9 2019-09-27 Completed [facility] 00:00:00 [facility] HPV9 2019-09-27 Completed [facility] 00:00:00 [facility] HPV9 2019-09-27 Completed [facility] 00:00:00 [facility] HPV9 2019-09-27 Completed [facility] 00:00:00 [facility] HPV9 2019-09-27 Completed [facility] 00:00:00 [facility] HPV9 2019-09-27 Completed [facility] 00:00:00 [facility] HPV9 2019-09-27 Completed [facility] 00:00:00 [facility] HPV9 2019-09-27 Completed [facility] 00:00:00 [facility] HPV9 2019-09-27 Completed [facility] 00:00:00 [facility] HPV9 2019-09-27 Completed [facility] 00:00:00 [facility] HPV9 2019-09-27 Completed [facility] 00:00:00 [facility] HPV9 2019-09-27 Completed [facility] 00:00:00 [facility] HPV9 2019-09-27 Completed [facility] 00:00:00 [facility] HPV9 2019-09-27 Completed [facility] 00:00:00 [facility] HPV9 2019-09-27 Completed [facility] 00:00:00 [facility] HPV9 2019-09-27 Completed [facility] 00:00:00 [facility] HPV9 2019-09-27 Completed [facility] 00:00:00 [facility] HPV9 2019-09-27 Completed [facility] 00:00:00 [facility] HPV9 2019-09-27 Completed [facility] 00:00:00 [facility] HPV9 2019-09-27 Completed [facility] 00:00:00 [facility] HPV9 2019-09-27 Completed [facility] 00:00:00 [facility] HPV9 2019-09-27 Completed [facility] 00:00:00 [facility] HPV9 2019-09-27 Completed [facility] 00:00:00 [facility] HPV9 2019-09-27 Completed [facility] 00:00:00 [facility] HPV9 2019-09-27 Completed [facility] 00:00:00 [facility] HPV9 2019-09-27 Completed [facility] 00:00:00 [facility] HPV9 2019-09-27 Completed [facility] 00:00:00 [facility] HPV9 2019-09-27 Completed [facility] 00:00:00 [facility] HPV9 2019-05-17 Completed [facility] 00:00:00 [facility] HPV9 2019-05-17 Completed [facility] 00:00:00 [facility] HPV9 2019-05-17 Completed [facility] 00:00:00 [facility] HPV9 2019-05-17 Completed University of [...] Branch HPV9 2019-05-17 Completed [facility] of 00:00:00 [facility] HPV9 2019-05-17 Completed University of 00:00:00 [facility] HPV9 2019-05-17 Completed [facility] 00:00:00 [facility] HPV9 2019-05-17 Completed [facility] of 00:00:00 [facility] HPV9 2019-05-17 Completed [facility] 00:00:00 [facility] HPV9 2019-05-17 Completed [facility] 00:00:00 [facility] HPV9 2019-05-17 Completed [facility] 00:00:00 [facility] HPV9 2019-05-17 Completed [facility] 00:00:00 [facility] HPV9 2019-05-17 Completed [facility] 00:00:00 [facility] HPV9 2019-05-17 Completed [facility] 00:00:00 [facility] HPV9 2019-05-17 Completed [facility] 00:00:00 [facility] HPV9 2019-05-17 Completed [facility] of 00:00:00 [facility] HPV9 2019-05-17 Completed [facility] of 00:00:00 [facility] HPV9 2019-05-17 Completed [facility] of 00:00:00 [facility] HPV9 2019-05-17 Completed [facility] of 00:00:00 [facility] HPV9 2019-05-17 Completed [facility] of 00:00:00 [facility] TDAP (ADACEL) 2018-02-15 Completed University of VACCINE 00:00:00 [facility] TDAP (ADACEL) 2018-02-15 Completed [facility] of VACCINE 00:00:00 [facility] TDAP (ADACEL) 2018-02-15 Completed [facility] of VACCINE 00:00:00 [facility] TDAP (ADACEL) 2018-02-15 Completed [facility] of VACCINE 00:00:00 [facility] TDAP (ADACEL) 2018-02-15 Completed [facility] of VACCINE 00:00:00 [facility] TDAP (ADACEL) 2018-02-15 Completed [facility] of VACCINE 00:00:00 [facility] TDAP (ADACEL) 2018-02-15 Completed [facility] of VACCINE 00:00:00 [facility] TDAP (ADACEL) 2018-02-15 Completed [facility] of VACCINE 00:00:00 [facility] TDAP (ADACEL) 2018-02-15 Completed [facility] of VACCINE 00:00:00 [facility] TDAP (ADACEL) 2018-02-15 Completed [facility] of [...] (ADACEL) 2018-02-15 Completed [facility] of VACCINE 00:00:00 [facility] TDAP (ADACEL) 2018-02-15 Completed [facility] of VACCINE 00:00:00 [facility] TDAP (ADACEL) 2018-02-15 Completed [facility] of VACCINE 00:00:00 [facility] TDAP (ADACEL) 2018-02-15 Completed [facility] of VACCINE 00:00:00 [facility] TDAP (ADACEL) 2018-02-15 Completed [facility] of VACCINE 00:00:00 [facility] TDAP (ADACEL) 2018-02-15 Completed [facility] VACCINE 00:00:00 [facility] TDAP (ADACEL) 2018-02-15 Completed [facility] of VACCINE 00:00:00 [facility] TDAP (ADACEL) 2018-02-15 Completed [facility] of VACCINE 00:00:00 [facility] TDAP (ADACEL) 2018-02-15 Completed University [...] (ADACEL) 2018-02-15 Completed [facility] of VACCINE 00:00:00 [facility] TDAP (ADACEL) 2018-02-15 Completed [facility] of VACCINE 00:00:00 [facility] TDAP (ADACEL) 2018-02-15 Completed [facility] of VACCINE 00:00:00 [facility] TDAP (ADACEL) 2018-02-15 Completed [facility] of VACCINE 00:00:00 [facility] TDAP (ADACEL) 2018-02-15 Completed [facility] of VACCINE 00:00:00 [facility] TDAP (ADACEL) 2018-02-15 Completed [facility] of VACCINE 00:00:00 [facility] TDAP (ADACEL) 2018-02-15 Completed [facility] of VACCINE 00:00:00 [facility] TDAP (ADACEL) 2018-02-15 Completed [facility] of VACCINE 00:00:00 [facility] TDAP (ADACEL) 2018-02-15 Completed [facility] of VACCINE 00:00:00 [facility] TDAP (ADACEL) 2018-02-15 Completed [facility] of VACCINE 00:00:00 [facility] TDAP (ADACEL) 2018-02-15 Completed [facility] of VACCINE 00:00:00 [facility] TDAP (ADACEL) 2018-02-15 Completed [facility] of VACCINE 00:00:00 [facility] TDAP (ADACEL) 2018-02-15 Completed [facility] of VACCINE 00:00:00 [place] [facility] TDAP (ADACEL) 2018-02-15 Completed [facility] of VACCINE 00:00:00 [facility] TDAP (ADACEL) 2018-02-15 Completed [facility] of VACCINE 00:00:00 [facility] TDAP (ADACEL) 2018-02-15 Completed [facility] of VACCINE 00:00:00 [facility] TDAP (ADACEL) 2018-02-15 Completed [facility] of VACCINE 00:00:00 [facility] TDAP (ADACEL) 2018-02-15 Completed [facility] of VACCINE 00:00:00 [facility] TDAP (ADACEL) 2018-02-15 Completed [facility] of VACCINE 00:00:00 [facility] TDAP (ADACEL) 2018-02-15 Completed [facility] of VACCINE 00:00:00 [facility] TDAP (ADACEL) 2018-02-15 Completed [facility] of VACCINE 00:00:00 [facility] TDAP (ADACEL) 2018-02-15 Completed [facility] of VACCINE 00:00:00 [facility] TDAP (ADACEL) 2018-02-15 Completed [facility] of VACCINE 00:00:00 [facility] TDAP (ADACEL) 2018-02-15 Completed [facility] of VACCINE 00:00:00 [facility] TDAP (ADACEL) 2018-02-15 Completed [facility] of VACCINE 00:00:00 [facility] TDAP (ADACEL) 2018-02-15 Completed [facility] of VACCINE 00:00:00 [facility] TDAP (ADACEL) 2018-02-15 Completed [facility] of VACCINE 00:00:00 [facility] TDAP (ADACEL) 2018-02-15 Completed [facility] of VACCINE 00:00:00 [facility] TDAP (ADACEL) 2018-02-15 Completed [facility] of VACCINE 00:00:00 [facility] TDAP (ADACEL) 2018-02-15 Completed [facility] of VACCINE 00:00:00 [facility] TDAP (ADACEL) 2018-02-15 Completed [facility] of VACCINE 00:00:00 [facility] TDAP (ADACEL) 2018-02-15 Completed [facility] of VACCINE 00:00:00 [facility] TDAP (ADACEL) 2018-02-15 Completed [facility] of VACCINE 00:00:00 [facility] TDAP (ADACEL) 2018-02-15 Completed [facility] of VACCINE 00:00:00 [facility] TDAP (ADACEL) 2018-02-15 Completed [facility] of VACCINE 00:00:00 [facility] TDAP (ADACEL) 2018-02-15 Completed [facility] of VACCINE 00:00:00 [facility] TDAP (ADACEL) 2018-02-15 Completed [facility] of VACCINE 00:00:00 [facility] TDAP (ADACEL) 2018-02-15 Completed [facility] of VACCINE 00:00:00 [facility] TDAP (ADACEL) 2018-02-15 Completed [facility] of VACCINE 00:00:00 [facility] TDAP (ADACEL) 2018-02-15 Completed [facility] of VACCINE 00:00:00 [facility] TDAP (ADACEL) 2018-02-15 Completed [facility] of VACCINE 00:00:00 [facility] TDAP (ADACEL) 2018-02-15 Completed [facility] of VACCINE 00:00:00 [facility] TDAP (ADACEL) 2018-02-15 Completed [facility] of VACCINE 00:00:00 [facility] TDAP (ADACEL) 2018-02-15 Completed [facility] of VACCINE 00:00:00 [facility] TDAP (ADACEL) 2018-02-15 Completed [facility] of VACCINE 00:00:00 [facility] Influenza Virus 2017-12-14 Completed Universit y of [facility] 3+ 00:00:00 [facility] Influenza Virus 2017-12-14 Completed [facility]it y of [facility] IM 3+ 00:00:00 [facility] Influenza Virus 2017-12-14 Completed [facility]it y of [facility] 3+ 00:00:00 [facility] Influenza Virus 2017-12-14 Completed [facility] y of [facility] IM 3+ 00:00:00 [facility] Influenza Virus 2017-12-14 Completed [facility] y of [facility] IM 3+ 00:00:00 [facility] Influenza Virus 2017-12-14 Completed [facility] y of [facility] 3+ 00:00:00 [facility] Influenza Virus 2017-12-14 Completed [facility] y of [facility] 3+ 00:00:00 [facility] Influenza Virus 2017-12-14 Completed [facility] y of [facility] 3+ 00:00:00 [facility] Influenza Virus 2017-12-14 Completed [facility] y of [facility] 3+ 00:00:00 [facility] Influenza Virus 2017-12-14 Completed [facility] y of [facility] 3+ 00:00:00 [facility] Influenza Virus 2017-12-14 Completed [facility] y of [facility] 3+ 00:00:00 [facility] Influenza Virus 2017-12-14 Completed [facility] y of [facility] 3+ 00:00:00 [facility] Influenza Virus 2017-12-14 Completed [facility] y of [facility] 3+ 00:00:00 [facility] Influenza Virus 2017-12-14 Completed [facility] y of [facility] 3+ 00:00:00 [facility] Influenza Virus 2017-12-14 Completed [facility] y of [facility] 3+ 00:00:00 [facility] Influenza Virus 2017-12-14 Completed [facility] y of [facility] 3+ 00:00:00 [facility] Influenza Virus 2017-12-14 Completed [facility] y of [facility] 3+ 00:00:00 [facility] Influenza Virus 2017-12-14 Completed [facility] y of [facility] 3+ 00:00:00 [facility] Influenza Virus 2017-12-14 Completed [facility] y of [facility] 3+ 00:00:00 [facility] Influenza Virus 2017-12-14 Completed [facility] y of [facility] 3+ 00:00:00 [facility] Influenza Virus 2017-12-14 Completed [facility] y of [facility] 3+ 00:00:00 [facility] Influenza Virus 2017-12-14 Completed [facility] y of [facility] 3+ 00:00:00 [facility] Influenza Virus 2017-12-14 Completed [facility] y of [facility] 3+ 00:00:00 [facility] Influenza Virus 2017-12-14 Completed [facility] y of [facility] 3+ 00:00:00 [facility] Influenza Virus 2017-12-14 Completed [facility] y of [facility] 3+ 00:00:00 [facility] Influenza Virus 2017-12-14 Completed [facility] y of [facility] 3+ 00:00:00 [facility] Influenza Virus 2017-12-14 Completed [facility] y of [facility] 3+ 00:00:00 [facility] Influenza Virus 2017-12-14 Completed [facility] y of [facility] 3+ 00:00:00 [facility] Influenza Virus 2017-12-14 Completed [facility] y of [facility] 3+ 00:00:00 [facility] Influenza Virus 2017-12-14 Completed [facility] y of [facility] 3+ 00:00:00 [facility] Influenza Virus 2017-12-14 Completed [facility] y of [facility] 3+ 00:00:00 [facility] Influenza Virus 2017-12-14 Completed [facility] y of [facility] 3+ 00:00:00 [facility] Influenza Virus 2017-12-14 Completed [facility] y of [facility] 3+ 00:00:00 [facility] Influenza Virus 2017-12-14 Completed [facility] y of [facility] 3+ 00:00:00 [facility] Influenza Virus 2017-12-14 Completed [facility] y of [facility] 3+ 00:00:00 [facility] Influenza Virus 2017-12-14 Completed [facility] y of [facility] 3+ 00:00:00 [facility] Influenza Virus 2017-12-14 Completed [facility] y of [facility] 3+ 00:00:00 [facility] Influenza Virus 2017-12-14 Completed [facility] y of [facility] 3+ 00:00:00 [facility] Influenza Virus 2017-12-14 Completed [facility] y of [facility] IM 3+ 00:00:00 [facility] Influenza Virus 2017-12-14 Completed [facility] y of [facility] 3+ 00:00:00 [facility] Influenza Virus 2017-12-14 Completed [facility] y of [facility] 3+ 00:00:00 [facility] Influenza Virus 2017-12-14 Completed [facility] y of [facility] 3+ 00:00:00 [facility] Influenza Virus 2017-12-14 Completed [facility] y of [facility] IM 3+ 00:00:00 [facility] Influenza Virus 2017-12-14 Completed [facility] y of [facility] IM 3+ 00:00:00 [facility] Influenza Virus 2017-12-14 Completed [facility] y of [facility] IM 3+ 00:00:00 [facility] Influenza Virus 2017-12-14 Completed [facility] y of [facility] IM 3+ 00:00:00 [facility] Influenza Virus 2017-12-14 Completed [facility] y of [facility] IM 3+ 00:00:00 [facility] Influenza Virus 2017-12-14 Completed [facility] y of [facility] IM 3+ 00:00:00 [facility] Influenza Virus 2017-12-14 Completed [facility] y of [facility] IM 3+ 00:00:00 [facility] Influenza Virus 2017-12-14 Completed [facility] y of [facility] IM 3+ 00:00:00 [facility] Influenza Virus 2017-12-14 Completed [facility] y of [facility] IM 3+ 00:00:00 [facility] Influenza Virus 2017-12-14 Completed [facility] y of [facility] IM 3+ 00:00:00 [facility] Influenza Virus 2017-12-14 Completed [facility] y of [facility] IM 3+ 00:00:00 [facility] Influenza Virus 2017-12-14 Completed [facility] y of [facility] IM 3+ 00:00:00 [facility] Influenza Virus 2017-12-14 Completed [facility] y of [facility] IM 3+ 00:00:00 [facility] Influenza Virus 2017-12-14 Completed [facility] y of [facility] IM 3+ 00:00:00 [facility] Influenza Virus 2017-12-14 Completed [facility] y of [facility] IM 3+ 00:00:00 [facility] Influenza Virus 2017-12-14 Completed [facility] y of [facility] IM 3+ 00:00:00 [facility] Influenza Virus 2017-12-14 Completed [facility] y of [facility] IM 3+ 00:00:00 [facility] Influenza Virus 2017-12-14 Completed [facility] y of [facility] IM 3+ 00:00:00 [facility] Influenza Virus 2017-12-14 Completed [facility] y of [facility] IM 3+ 00:00:00 [facility] Influenza Virus 2017-12-14 Completed [facility] y of [facility] IM 3+ 00:00:00 [facility] Influenza Virus 2017-12-14 Completed [facility] y of [facility] IM 3+ 00:00:00 [facility] Influenza Virus 2017-12-14 Completed [facility] y of [facility] IM 3+ 00:00:00 [facility] Influenza Virus 2017-12-14 Completed [facility] y of [facility] IM 3+ 00:00:00 [facility] Influenza Virus 2017-12-14 Completed [facility] y of [facility] IM 3+ 00:00:00 [facility] Influenza Virus 2017-12-14 Completed [facility] y of [facility] IM 3+ 00:00:00 [facility] Influenza Virus 2017-12-14 Completed [facility] y of [facility] IM 3+ 00:00:00 [facility] Influenza Virus 2017-12-14 Completed [facility] y of [facility] IM 3+ 00:00:00 [facility] Influenza Virus 2017-12-14 Completed [facility] y of [facility] IM 3+ 00:00:00 [facility] Influenza Virus 2017-12-14 Completed [facility] y of [facility] IM 3+ 00:00:00 [facility] Influenza Virus 2017-12-14 Completed [facility] y of [facility] IM 3+ 00:00:00 [facility] Influenza Virus 2017-12-14 Completed [facility] y of [facility] IM 3+ 00:00:00 [facility] Influenza Virus 2017-12-14 Completed [facility] y of [facility] IM 3+ 00:00:00 [facility] Influenza Virus 2017-12-14 Completed [facility] y of [facility] IM 3+ 00:00:00 [facility] Influenza Virus 2017-12-14 Completed [facility] y of [facility] IM 3+ 00:00:00 [facility] Influenza Virus 2017-12-14 Completed [facility] y of [facility] IM 3+ 00:00:00 [facility] Influenza Virus 2017-12-14 Completed [facility] y of [facility] IM 3+ 00:00:00 [facility] Influenza Virus 2017-12-14 Completed [facility] y of [facility] IM 3+ 00:00:00 [facility] Influenza Virus 2017-12-14 Completed [facility] y of [facility] IM 3+ 00:00:00 [facility] Influenza Virus 2017-12-14 Completed [facility] y of [facility] 3+ 00:00:00 [facility] Varicella 2016-05-24 Completed University of (varivax)(chicken 00:00:00 [...] Varicella 2016-05-24 Completed University of (varivax)(chicken 00:00:00 [facility] edical pox) Branch TDAP 2016-04-03 Completed [facility] of 00:00:00 [facility] TDAP 2016-04-03 Completed [facility] of 00:00:00 [facility] TDAP 2016-04-03 Completed [facility] of 00:00:00 [facility] TDAP 2016-04-03 Completed [facility] of 00:00:00 [facility] TDAP 2016-04-03 Completed [facility] of 00:00:00 [facility] TDAP 2016-04-03 Completed [facility] of 00:00:00 [facility] TDAP 2016-04-03 Completed [facility] of 00:00:00 [facility] TDAP 2016-04-03 Completed [facility] of 00:00:00 [facility] TDAP 2016-04-03 Completed [facility] of 00:00:00 [facility] TDAP 2016-04-03 Completed [facility] of 00:00:00 [facility] TDAP 2016-04-03 Completed [facility] of 00:00:00 [facility] TDAP 2016-04-03 Completed [facility] of 00:00:00 [facility] TDAP 2016-04-03 Completed [facility] of 00:00:00 [facility] TDAP 2016-04-03 Completed [facility] of 00:00:00 [facility] TDAP 2016-04-03 Completed [facility] of 00:00:00 [facility] TDAP 2016-04-03 Completed [facility] of 00:00:00 [facility] TDAP 2016-04-03 Completed [facility] of 00:00:00 [facility] TDAP 2016-04-03 Completed [facility] of 00:00:00 [facility] TDAP 2016-04-03 Completed [facility] of 00:00:00 [facility] TDAP 2016-04-03 Completed [facility] of 00:00:00 [facility] TDAP 2016-04-03 Completed [facility] of 00:00:00 [facility] TDAP 2016-04-03 Completed [facility] of 00:00:00 [facility] TDAP 2016-04-03 Completed [facility] of 00:00:00 [facility] TDAP 2016-04-03 Completed [facility] of 00:00:00 [facility] TDAP 2016-04-03 Completed [facility] of 00:00:00 [facility] TDAP 2016-04-03 Completed [facility] of 00:00:00 [facility] TDAP 2016-04-03 Completed [facility] of 00:00:00 [facility] TDAP 2016-04-03 Completed [facility] of 00:00:00 [facility] TDAP 2016-04-03 Completed [facility] 00:00:00 [facility] TDAP 2016-04-03 Completed [facility] 00:00:00 [facility] TDAP 2016-04-03 Completed [facility] 00:00:00 [facility] TDAP 2016-04-03 Completed [facility] 00:00:00 [facility] TDAP 2016-04-03 Completed [facility] 00:00:00 [facility] TDAP 2016-04-03 Completed [facility] 00:00:00 [facility] TDAP 2016-04-03 Completed [facility] 00:00:00 [facility] TDAP 2016-04-03 Completed [facility] 00:00:00 [facility] TDAP 2016-04-03 Completed [facility] 00:00:00 [facility] TDAP 2016-04-03 Completed [facility] 00:00:00 [facility] TDAP 2016-04-03 Completed [facility] 00:00:00 [facility] TDAP 2016-04-03 Completed [facility] 00:00:00 [facility] TDAP 2016-04-03 Completed [facility] 00:00:00 [facility] TDAP 2016-04-03 Completed [facility] 00:00:00 [facility] TDAP 2016-04-03 Completed [facility] 00:00:00 [facility] TDAP 2016-04-03 Completed [facility] 00:00:00 [facility] TDAP 2016-04-03 Completed [facility] 00:00:00 [facility] TDAP 2016-04-03 Completed [facility] 00:00:00 [facility] Tdap 2016-04-03 Completed [facility] 00:00:00 [facility] Tdap 2016-04-03 Completed [facility] 00:00:00 [facility] Tdap 2016-04-03 Completed [facility] 00:00:00 [facility] Tdap 2016-04-03 Completed [facility] 00:00:00 [facility] Tdap 2016-04-03 Completed [facility] 00:00:00 [facility] Tdap 2016-04-03 Completed [facility] 00:00:00 [facility] Tdap 2016-04-03 Completed [facility] 00:00:00 [facility] Tdap 2016-04-03 Completed [facility] 00:00:00 [facility] Tdap 2016-04-03 Completed [facility] 00:00:00 [facility] Tdap 2016-04-03 Completed [facility] 00:00:00 [facility] Tdap 2016-04-03 Completed [facility] 00:00:00 [facility] Tdap 2016-04-03 Completed [facility] 00:00:00 [facility] Tdap 2016-04-03 Completed [facility] 00:00:00 [facility] Tdap 2016-04-03 Completed [facility] 00:00:00 [facility] Tdap 2016-04-03 Completed [facility] 00:00:00 [facility] Tdap 2016-04-03 Completed [facility] 00:00:00 [facility] Tdap 2016-04-03 Completed [facility] 00:00:00 [facility] Tdap 2016-04-03 Completed [facility] 00:00:00 [facility] Tdap 2016-04-03 Completed [facility] 00:00:00 [facility] Tdap 2016-04-03 Completed [facility] 00:00:00 [facility] Tdap 2016-04-03 Completed [facility] 00:00:00 [facility] Tdap 2016-04-03 Completed [facility] of 00:00:00 [facility] Tdap 2016-04-03 Completed [facility] 00:00:00 [facility] Tdap 2016-04-03 Completed [facility] 00:00:00 [facility] Tdap 2016-04-03 Completed [facility] 00:00:00 [facility] Tdap 2016-04-03 Completed [facility] 00:00:00 [facility] Tdap 2016-04-03 Completed [facility] 00:00:00 [facility] TDAP 2016-04-03 Completed [facility] 00:00:00 [facility] TDAP 2016-04-03 Completed [facility] 00:00:00 [facility] TDAP 2016-04-03 Completed [facility] 00:00:00 [facility] TDAP 2016-04-03 Completed [facility] 00:00:00 [facility] TDAP 2016-04-03 Completed [facility] 00:00:00 [facility] TDAP 2016-04-03 Completed [facility] 00:00:00 [facility] TDAP 2016-04-03 Completed [facility] 00:00:00 [facility] TDAP 2016-04-03 Completed [facility] 00:00:00 [facility] Rho (d) Immune 2016-03-27 Completed [facility] of Globulin 00:00:00 [facility] Rho (d) Immune 2016-03-27 Completed [facility] of Globulin 00:00:00 [facility] Rho (d) Immune 2016-03-27 Completed [facility] of Globulin 00:00:00 [facility] Rho (d) Immune 2016-03-27 Completed [facility] Globulin 00:00:00 [facility] Rho (d) Immune 2016-03-27 Completed [facility] Globulin 00:00:00 [facility] Rho (d) Immune 2016-03-27 Completed [facility] Globulin 00:00:00 [facility] Rho (d) Immune 2016-03-27 Completed [facility] Globulin 00:00:00 [facility] Rho (d) Immune 2016-03-27 Completed [facility] Globulin 00:00:00 [facility] Rho (d) Immune 2016-03-27 Completed [facility] Globulin 00:00:00 [facility] Rho (d) Immune 2016-03-27 Completed [facility] Globulin 00:00:00 [facility] Rho (d) Immune 2016-03-27 Completed [facility] Globulin 00:00:00 [facility] Rho (d) Immune 2016-03-27 Completed [facility] of Globulin 00:00:00 [facility] Rho (d) Immune 2016-03-27 Completed [facility] Globulin 00:00:00 [facility] Rho (d) Immune 2016-03-27 Completed [facility] Globulin 00:00:00 [facility] Rho (d) Immune 2016-03-27 Completed [facility] Globulin 00:00:00 [facility] Rho (d) Immune 2016-03-27 Completed [facility] of Globulin 00:00:00 [facility] Rho (d) Immune 2016-03-27 Completed [facility] Globulin 00:00:00 [facility] Rho (d) Immune 2016-03-27 Completed [facility] Globulin 00:00:00 [facility] Rho (d) Immune 2016-03-27 Completed [facility] Globulin 00:00:00 [facility] Rho (d) Immune 2016-03-27 Completed [facility] Globulin 00:00:00 [facility] Rho (d) Immune 2016-03-27 Completed [facility] Globulin 00:00:00 [facility] Rho (d) Immune 2016-03-27 Completed [facility] Globulin 00:00:00 [facility] Rho (d) Immune 2016-03-27 Completed [facility] Globulin 00:00:00 [facility] Rho (d) Immune 2016-03-27 Completed [facility] Globulin 00:00:00 [facility] Rho (d) Immune 2016-03-27 Completed [facility] Globulin 00:00:00 [facility] Rho (d) Immune 2016-03-27 Completed [facility] Globulin 00:00:00 [facility] Rho (d) Immune 2016-03-27 Completed [facility] Globulin 00:00:00 [facility] Rho (d) Immune 2016-03-27 Completed [facility] Globulin 00:00:00 [facility] Rho (d) Immune 2016-03-27 Completed [facility] Globulin 00:00:00 [facility] Rho (d) Immune 2016-03-27 Completed [facility] Globulin 00:00:00 [facility] Rho (d) Immune 2016-03-27 Completed [facility] Globulin 00:00:00 [facility] Rho (d) Immune 2016-03-27 Completed [facility] Globulin 00:00:00 [facility] Rho (d) Immune 2016-03-27 Completed [facility] Globulin 00:00:00 [facility] Rho (d) Immune 2016-03-27 Completed [facility] Globulin 00:00:00 [facility] Rho (d) Immune 2016-03-27 Completed [facility] Globulin 00:00:00 [facility] Rho (d) Immune 2016-03-27 Completed [facility] Globulin 00:00:00 [facility] Rho (d) Immune 2016-03-27 Completed [facility] Globulin 00:00:00 [facility] Rho (d) Immune 2016-03-27 Completed [facility] Globulin 00:00:00 [facility] Rho (d) Immune 2016-03-27 Completed [facility] Globulin 00:00:00 [facility] Rho (d) Immune 2016-03-27 Completed [facility] Globulin 00:00:00 [facility] Rho (d) Immune 2016-03-27 Completed [facility] of Globulin 00:00:00 [facility] Rho (d) Immune 2016-03-27 Completed [facility] Globulin 00:00:00 [facility] Rho (d) Immune 2016-03-27 Completed [facility] Globulin 00:00:00 [facility] Rho (d) Immune 2016-03-27 Completed [facility] Globulin 00:00:00 [facility] Rho (d) Immune 2016-03-27 Completed [facility] Globulin 00:00:00 [facility] Rho (d) Immune 2016-03-27 Completed [facility] Globulin 00:00:00 [facility] Rho (d) Immune 2016-03-27 Completed [facility] Globulin 00:00:00 [facility] Rho (d) Immune 2016-03-27 Completed [facility] Globulin 00:00:00 [facility] Rho (d) Immune 2016-03-27 Completed [facility] Globulin 00:00:00 [facility] Rho (d) Immune 2016-03-27 Completed [facility] Globulin 00:00:00 [facility] Rho (d) Immune 2016-03-27 Completed [facility] Globulin 00:00:00 [facility] Rho (d) Immune 2016-03-27 Completed [facility] Globulin 00:00:00 [facility] Rho (d) Immune 2016-03-27 Completed [facility] Globulin 00:00:00 [facility] Rho (d) Immune 2016-03-27 Completed [facility] Globulin 00:00:00 [facility] Rho (d) Immune 2016-03-27 Completed [facility] Globulin 00:00:00 [facility] Rho (d) Immune 2016-03-27 Completed [facility] Globulin 00:00:00 [facility] Rho (d) Immune 2016-03-27 Completed [facility] Globulin 00:00:00 [facility] Rho (d) Immune 2016-03-27 Completed [facility] Globulin 00:00:00 [facility] Rho (d) Immune 2016-03-27 Completed [facility] Globulin 00:00:00 [facility] Rho (d) Immune 2016-03-27 Completed [facility] Globulin 00:00:00 [facility] Rho (d) Immune 2016-03-27 Completed [facility] Globulin 00:00:00 [facility] Rho (d) Immune 2016-03-27 Completed [facility] Globulin 00:00:00 [facility] Rho (d) Immune 2016-03-27 Completed [facility] Globulin 00:00:00 [facility] Rho (d) Immune 2016-03-27 Completed [facility] Globulin 00:00:00 [facility] Rho (d) Immune 2016-03-27 Completed [facility] Globulin 00:00:00 [facility] Rho (d) Immune 2016-03-27 Completed [facility] Globulin 00:00:00 [facility] Rho (d) Immune 2016-03-27 Completed [facility] Globulin 00:00:00 [facility] Rho (d) Immune 2016-03-27 Completed [facility] Globulin 00:00:00 [facility] Rho (d) Immune 2016-03-27 Completed [facility] Globulin 00:00:00 [facility] Rho (d) Immune 2016-03-27 Completed [facility] Globulin 00:00:00 [facility] Rho (d) Immune 2016-03-27 Completed [facility] Globulin 00:00:00 [facility] Rho (d) Immune 2016-03-27 Completed [facility] Globulin 00:00:00 [facility] Rho (d) Immune 2016-03-27 Completed [facility] Globulin 00:00:00 [facility] Rho (d) Immune 2016-03-27 Completed [facility] Globulin 00:00:00 [facility] Rho (d) Immune 2016-03-27 Completed [facility] Globulin 00:00:00 [facility] Rho (d) Immune 2016-03-27 Completed [facility] Globulin 00:00:00 [facility] Rho (d) Immune 2016-03-27 Completed [facility] Globulin 00:00:00 [facility] Rho (d) Immune 2016-03-27 Completed [facility] Globulin 00:00:00 [facility] Rho (d) Immune 2016-03-27 Completed [facility] Globulin 00:00:00 [facility] Rho (d) Immune 2016-03-27 Completed [facility] Globulin 00:00:00 [facility] Rho (d) Immune 2016-03-27 Completed [facility] Globulin 00:00:00 [facility] Vital Signs Vital Name Observation Time Observation Value Comments Source HEIGHT 2020-09-22 06:00:00 152.4 cm WEIGHT 2020-09-22 06:00:00 80.8 kg HEIGHT 2020-09-21 19:00:00 152.4 cm WEIGHT 2020-09-21 19:00:00 80.786 kg Systolic blood 2020-11-26 13:09:00 118 mm[Hg] Univer sity of pressure [facility] Diastolic blood 2020-11-26 13:09:00 75 mm[Hg] Unive rsity of pressure [facility] Heart rate 2020-11-26 13:09:00 72 /min [facility] Body height 2020-11-26 13:09:00 160 cm [facility] Body weight 2020-11-26 13:09:00 81.647 kg [facility] BMI 2020-11-26 13:09:00 31.89 kg/m2 [facility] Oxygen saturation in 2020-11-26 13:09:00 100 /min [facility] of Arterial blood by [facility] Pulse oximetry Branch Systolic blood 2020-11-01 18:58:00 136 mm[Hg] Univer sity of pressure [facility] Diastolic blood 2020-11-01 18:58:00 83 mm[Hg] Unive rsity of pressure [facility] Heart rate 2020-11-01 18:58:00 65 /min Universi ty of [facility] Body temperature 2020-11-01 18:58:00 37.06 Shira Univ ersity of [facility] Respiratory rate 2020-11-01 18:58:00 18 /min Univ ersity of [facility] Body height 2020-11-01 18:58:00 160 cm [facility] Body weight 2020-11-01 18:58:00 80.377 kg [facility] BMI 2020-11-01 18:58:00 31.39 kg/m2 [facility] Oxygen saturation in 2020-11-01 18:58:00 100 /min [facility] of Arterial blood by [facility] Pulse oxim[facility] Branch Systolic blood 2020-10-09 20:57:00 121 mm[Hg] Univer sity of pressure [facility] Diastolic blood 2020-10-09 20:57:00 72 mm[Hg] Unive rsity of pressure [facility] Heart rate 2020-10-09 20:57:00 75 /min [facility] Body temperature 2020-10-09 20:57:00 36.61 Shira [facility] Respiratory rate 2020-10-09 20:57:00 16 /min Univ ersity of [facility] Body height 2020-10-09 20:57:00 160 cm [facility] Body weight 2020-10-09 20:57:00 81.421 kg [facility] BMI 2020-10-09 20:57:00 31.80 kg/m2 [facility] Systolic blood 2020-10-09 20:57:00 121 mm[Hg] Univer sity of pressure [facility] Diastolic blood 2020-10-09 20:57:00 72 mm[Hg] Unive rsity of pressure [facility] Heart rate 2020-10-09 20:57:00 75 /min [facility] Body temperature 2020-10-09 20:57:00 36.61 Shira [facility] Respiratory rate 2020-10-09 20:57:00 16 /min Univ ersity of [facility] Body height 2020-10-09 20:57:00 160 cm Universi ty of [facility] Body weight 2020-10-09 20:57:00 81.421 kg [facility] of [facility] BMI 2020-10-09 20:57:00 31.80 kg/m2 Universi ty of [facility] Systolic blood 2020-10-05 09:00:00 115 mm[Hg] Univer sity of pressure [facility] Diastolic blood 2020-10-05 09:00:00 68 mm[Hg] Unive rsity of [facility] Heart rate 2020-10-05 09:00:00 70 /min Universi ty of [facility] Body temperature 2020-10-05 09:00:00 36.56 Shira Univ ersity of [facility] Respiratory rate 2020-10-05 09:00:00 18 /min Univ ersity of [facility] Oxygen saturation in 2020-10-05 09:00:00 98 /min [facility] Arterial blood by [facility] P[facility] oxim[facility] Body height 2020-10-01 14:40:00 160 cm [facility] Body weight 2020-10-01 14:40:00 79.379 kg Universi ty of [facility] BMI 2020-10-01 14:40:00 31.00 kg/m2 [facility] HEIGHT 2020-09-22 06:00:00 152.4 cm WEIGHT 2020-09-22 06:00:00 80.8 kg HEIGHT 2020-09-21 19:00:00 152.4 cm WEIGHT 2020-09-21 19:00:00 80.786 kg Systolic blood 2020-09-15 05:45:58 155 mm[Hg] Univer sity of pressure [facility] Diastolic blood 2020-09-15 05:45:58 102 mm[Hg] Unive rsity of [facility] Heart rate 2020-09-15 05:45:58 95 /min Universi ty of [facility] Respiratory rate 2020-09-15 05:45:58 19 /min Univ ersity of [facility] Oxygen saturation in 2020-09-15 05:45:58 98 /min [facility] by [place] [facility] Body temperature 2020-09-15 02:54:00 36.67 Shira [facility] of [facility] Body weight 2020-09-15 02:54:00 79.379 kg [facility]i [facility] BMI 2020-09-15 02:54:00 31.00 kg/m2 [facility] Systolic blood 2020-09-13 05:00:00 110 mm[Hg] Univer sity of pressure [facility] Diastolic blood 2020-09-13 05:00:00 56 mm[Hg] Unive rsity of pressure [facility] Heart rate 2020-09-13 05:00:00 100 /min [facility] Body temperature 2020-09-13 05:00:00 37.33 Shira [facility] Respiratory rate 2020-09-13 05:00:00 18 /min Univ ersity of [facility] Oxygen saturation in 2020-09-13 04:00:00 100 /min [facility] Arterial blood by [place] [employer] [facility] Body height 2020-09-13 00:48:00 160 cm [facility] Body weight 2020-09-13 00:48:00 78.019 kg [facility] BMI 2020-09-13 00:48:00 30.47 kg/m2 [facility] Systolic blood 2020-09-12 02:30:00 126 mm[Hg] Univer sity of pressure [facility] Diastolic blood 2020-09-12 02:30:00 80 mm[Hg] Unive rsity of pressure [facility] Heart rate 2020-09-12 02:30:00 103 /min [facility] Respiratory rate 2020-09-12 02:30:00 21 /min Univ ersity of [facility] Oxygen saturation in 2020-09-12 02:30:00 98 /min [facility] Arterial blood by [place] [employer] [facility] Body temperature 2020-09-12 01:33:00 37.72 Shira [facility] Body height 2020-09-12 01:33:00 160 cm [facility] Body weight 2020-09-12 01:33:00 77.111 kg [facility] BMI 2020-09-12 01:33:00 30.11 kg/m2 [facility] Systolic blood 2020-08-31 17:00:00 121 mm[Hg] Univer sity of pressure [facility] Diastolic blood 2020-08-31 17:00:00 76 mm[Hg] Unive rsity of pressure [facility] Heart rate 2020-08-31 17:00:00 71 /min [facility] Respiratory rate 2020-08-31 17:00:00 12 /min Univ ersity of [facility] Oxygen saturation in 2020-08-31 17:00:00 97 /min [facility] Arterial blood by [place] [employer] [facility] P[facility] Body temperature 2020-08-31 16:20:00 38.5 Shira [facility] Body weight 2020-08-31 16:20:00 77.111 kg [facility] BMI 2020-08-31 16:20:00 30.11 kg/m2 [facility] Systolic blood 2020-08-30 04:04:21 139 mm[Hg] Univer sity of pressure [facility] Diastolic blood 2020-08-30 04:04:21 78 mm[Hg] Unive rsity of pressure [facility] Heart rate 2020-08-30 04:04:21 83 /min [facility] Body temperature 2020-08-30 04:04:21 37.72 Shira [facility] Respiratory rate 2020-08-30 04:04:21 19 /min Univ ersity of [facility] Oxygen saturation in 2020-08-30 04:04:21 99 /min [facility] Arterial blood by [place] [employer] [facility] P[facility] Body height 2020-08-30 01:45:00 160 cm [facility]i [facility] of [place] [facility] Body weight 2020-08-30 01:45:00 77.111 kg [facility] of [facility] BMI 2020-08-30 01:45:00 30.11 kg/m2 [facility] Systolic blood 2020-06-07 16:00:00 127 mm[Hg] Univer sity of pressure [facility] Diastolic blood 2020-06-07 16:00:00 73 mm[Hg] Unive rsity of pressure [facility] Heart rate 2020-06-07 16:00:00 86 /min [facility] [place] [facility] Body temperature 2020-06-07 16:00:00 37.39 Shira Univ ersity of [facility] Respiratory rate 2020-06-07 16:00:00 16 /min Univ ersity of [facility] Body height 2020-06-07 16:00:00 162.6 cm [facility] Body weight 2020-06-07 16:00:00 73.539 kg [facility] BMI 2020-06-07 16:00:00 27.83 kg/m2 [facility] [place] [facility] Systolic blood 2020-05-14 01:03:00 140 mm[Hg] Univer sity of pressure [facility] Diastolic blood 2020-05-14 01:03:00 97 mm[Hg] Unive rsity of pressure [facility] Heart rate 2020-05-14 01:03:00 89 /min [facility] Body temperature 2020-05-14 01:03:00 37.33 Shira [facility] [place] [facility] Respiratory rate 2020-05-14 01:03:00 20 /min Univ ersity of [facility] [place] [facility] Body height 2020-05-14 01:03:00 162.6 cm [facility] [place] [facility] Body weight 2020-05-14 01:03:00 73.483 kg [facility] [place] [facility] BMI 2020-05-14 01:03:00 27.81 kg/m2 [facility] Oxygen saturation in 2020-05-14 01:03:00 100 /min [facility] of Arterial blood by [facility] Pulse oximetry Branch Systolic blood 2020-01-17 19:49:00 123 mm[Hg] Univer sity of pressure [facility] Diastolic blood 2020-01-17 19:49:00 73 mm[Hg] Unive rsity of pressure [facility] Heart rate 2020-01-17 19:49:00 75 /min [facility] Body temperature 2020-01-17 19:49:00 37.39 Shira [facility] [place] Medical Branch Respiratory rate 2020-01-17 19:49:00 16 /min [facility] [place] [facility] Body height 2020-01-17 19:49:00 160 cm [facility] [place] [facility] Body weight 2020-01-17 19:49:00 86.183 kg [facility] [place] [facility] BMI 2020-01-17 19:49:00 33.66 kg/m2 [facility] [place] [facility] Systolic blood 2019-12-30 15:30:00 133 mm[Hg] [facility] [place] [facility] Diastolic blood 2019-12-30 15:30:00 84 mm[Hg] [facility] [place] [facility] Heart rate 2019-12-30 15:30:00 98 /min [facility] [place] [facility] Body temperature 2019-12-30 15:30:00 36.56 Shira [facility] [place] [facility] Respiratory rate 2019-12-30 15:30:00 16 /min [facility] [place] [facility] Body height 2019-12-30 15:30:00 162.6 cm [facility] [place] [facility] Body weight 2019-12-30 15:30:00 84.936 kg [facility] [place] [facility] BMI 2019-12-30 15:30:00 32.14 kg/m2 [facility] [place] [facility] Systolic blood 2019-12-20 18:23:00 123 mm[Hg] [facility] [place] [facility] Diastolic blood 2019-12-20 18:23:00 76 mm[Hg] [facility] [place] [facility] Heart rate 2019-12-20 18:23:00 83 /min [facility] [place] [facility] Body temperature 2019-12-20 18:23:00 36.89 Shira [facility] [place] [facility] Respiratory rate 2019-12-20 18:23:00 16 /min [facility] [place] [facility] Body height 2019-12-20 18:23:00 160 cm [facility] [place] [facility] Body weight 2019-12-20 18:23:00 85.911 kg [facility] [place] [facility] BMI 2019-12-20 18:23:00 33.55 kg/m2 [facility] [place] [facility] Systolic blood 2019-09-27 19:20:00 129 mm[Hg] [facility] [place] [facility] Diastolic blood 2019-09-27 19:20:00 71 mm[Hg] [facility] [place] [facility] Heart rate 2019-09-27 19:20:00 99 /min [facility] of [facility] Body temperature 2019-09-27 19:20:00 36.44 Shira [facility] Respiratory rate 2019-09-27 19:20:00 16 /min Univ [facility] of [facility] Body height 2019-09-27 19:20:00 162.6 cm [facility] [place] [facility] Body weight 2019-09-27 19:20:00 85.787 kg [facility] [place] [facility] BMI 2019-09-27 19:20:00 32.46 kg/m2 Universi ty of [facility] Systolic blood 2019-08-18 16:00:00 109 mm[Hg] Univer sity of pressure [facility] Diastolic blood 2019-08-18 16:00:00 66 mm[Hg] Unive rsity of pressure [facility] Heart rate 2019-08-18 16:00:00 83 /min [facility] [place] [facility] Respiratory rate 2019-08-18 16:00:00 18 /min Univ [facility] of [facility] Oxygen saturation in 2019-08-18 16:00:00 99 /min University of Arterial blood by [facility] Pulse oximetry Silva Body temperature 2019-08-18 13:21:00 36.56 Shira [facility] Body height 2019-08-18 13:21:00 162.6 cm [facility] [place] [facility] Body weight 2019-08-18 13:21:00 77.111 kg [facility] [place] [facility] BMI 2019-08-18 13:21:00 29.18 kg/m2 Universi ty of [facility] Systolic blood 2019-07-29 04:27:00 134 mm[Hg] Univer sity of pressure [facility] Diastolic blood 2019-07-29 04:27:00 80 mm[Hg] [facility] [place] [facility] Heart rate 2019-07-29 04:27:00 80 /min Universi ty of [facility] Respiratory rate 2019-07-29 04:27:00 18 /min Univ [facility] of [facility] Oxygen saturation in 2019-07-29 04:27:00 98 /min University of Arterial blood by [facility] Pulse oximetry Branch Body temperature 2019-07-28 22:32:00 37.22 Shira [facility] [place] [facility] Body height 2019-07-28 22:32:00 162.6 cm [facility] [place] [facility] Body weight 2019-07-28 22:32:00 81.647 kg [facility] [place] [facility] BMI 2019-07-28 22:32:00 30.90 kg/m2 [facility] [place] [facility] Systolic blood 2019-06-27 02:00:00 122 mm[Hg] [facility] [place] [facility] Diastolic blood 2019-06-27 02:00:00 65 mm[Hg] [facility] [place] [facility] Heart rate 2019-06-27 02:00:00 98 /min Universi ty of [facility] Respiratory rate 2019-06-27 02:00:00 18 /min Univ [facility] of [facility] Oxygen saturation in 2019-06-27 02:00:00 99 /min University of Arterial blood by [facility] Pulse oximetry Branch Body temperature 2019-06-27 00:13:46 36.83 Shira [facility] [place] [facility] Body height 2019-06-27 00:10:00 160 cm [facility] [place] [facility] Body weight 2019-06-27 00:10:00 79.379 kg [facility] [place] [facility] BMI 2019-06-27 00:10:00 31.00 kg/m2 [facility] [place] [facility] Systolic blood 2019-05-17 18:28:00 127 mm[Hg] [facility] [place] [facility] Diastolic blood 2019-05-17 18:28:00 68 mm[Hg] [facility] [place] [facility] Heart rate 2019-05-17 18:28:00 75 /min [facility] [place] [facility] Body temperature 2019-05-17 18:28:00 36.89 Shira [facility] [place] [facility] Respiratory rate 2019-05-17 18:28:00 16 /min [facility] [place] [facility] Body height 2019-05-17 18:28:00 162.6 cm [facility] [place] [facility] Body weight 2019-05-17 18:28:00 79.635 kg [facility] [place] [facility] BMI 2019-05-17 18:28:00 30.14 kg/m2 [facility] of [facility] Systolic blood 2019-04-20 17:06:00 134 mm[Hg] Univer [facility]ity of pressure [facility] Diastolic blood 2019-04-20 17:06:00 76 mm[Hg] Unive rsity of pressure [facility] Heart rate 2019-04-20 17:06:00 112 /min Universi ty of [facility] Body temperature 2019-04-20 17:06:00 37.33 Shira [facility] Respiratory rate 2019-04-20 17:06:00 18 /min Univ [facility] Body weight 2019-04-20 17:06:00 81.647 kg Universi [facility] of [facility] BMI 2019-04-20 17:06:00 30.90 kg/m2 Universi [facility] of [facility] Oxygen saturation in 2019-04-20 17:06:00 98 /min University Arterial blood by [facility] Pulse oximetry Branch Systolic blood 2019-03-21 22:03:00 139 mm[Hg] Univer sity of pressure [facility] Diastolic blood 2019-03-21 22:03:00 81 mm[Hg] Unive rsity of pressure [facility] Heart rate 2019-03-21 22:03:00 93 /min Universi ty of [facility] Body temperature 2019-03-21 22:03:00 37.33 Shira [facility] Respiratory rate 2019-03-21 22:03:00 16 /min Univ [facility] of [facility] Body height 2019-03-21 22:03:00 162.6 cm Universi ty of [facility] Body weight 2019-03-21 22:03:00 76.233 kg Universi ty of [facility] BMI 2019-03-21 22:03:00 28.85 kg/m2 Universi [facility] of [facility] Procedures Procedure Date / Time Performing Clinician Source Performed MR BRAIN W WO CONTRAST 2020-10-18 19:21:42 Suzie Frey [facility] ASSIGNMENT OF BENEFITS 2020-10-09 20:43:10 Doctor Unassigned, No [facility] LITHIUM 2020-10-05 10:05:00 Jacinto Parks [facility] HOSPITAL ADMISSION 2020-10-01 05:01:00 [facility]igned, [facility] 2020-09-30 05:01:00 Doctor Unassigned, No [facility] DOCUMENTATION [facility] ASSIGNMENT OF BENEFITS 2020-09-26 17:05:24 Doctor Unassigned, No [facility] POCT TEST 2020-09-15 04:50:00 Cheo Galvin [facility] CBC WITH DIFF 2020-09-15 04:14:00 Glenis, [facility] CREATINE KINASE 2020-09-15 04:03:00 Glenis [facility] COMP. METABOLIC PANEL 2020-09-15 04:03:00 Cheo Galvin [facility] ([id number]) [facility] ETHANOL 2020-09-15 04:03:00 Glen[place], [facility] URINE DRUG (IMMUNOASSAY) 2020-09-15 04:03:00 Cheo Galvin [facility] SCREEN URINALYSIS 2020-09-15 04:03:00 Glen[place], [facility] URINALYSIS 2020-08-31 17:10:00 Peace Paz [facility] POCT TEST 2020-08-31 17:08:00 Peace Paz [facility] COMP. METABOLIC PANEL 2020-08-31 16:30:00 Peace Paz [facility] ([id number]) [facility] CBC WITH DIFF 2020-08-31 16:30:00 Peace Paz [facility] LACTIC ACID WHOLE BLOOD 2020-08-31 16:30:00 Peace Paz [facility] POCT TEST 2020-08-30 02:44:00 Peace Paz [facility] URINALYSIS 2020-08-30 02:39:00 Peace Paz [facility] COVID-19 (ID NOW RAPID 2020-08-30 02:16:00 Peace Paz [facility] TESTING) [facility] NOTICE OF PRIVACY 2020-08-30 01:38:13 Doctor Unassigned, No [facility] PRACTICES Name Medical Branch CONSENT/REFUSAL FOR 2020-08-30 01:31:54 Doctor Unassigned, No [facility] [place] [facility] Name [facility] POCT URINALYSIS W/O 2020-06-07 16:03:00 TerrelljeanetteaureIzzyAlma C [facility] SPECIFIC GRAVITY [facility] CT ABDOMEN PELVIS WO 2020-05-14 01:54:47 Peace Paz [facility] CONTRAST Medical Branch COMP. METABOLIC PANEL 2020-05-14 01:30:00 Peace Paz [facility] ([id number]) Medical Branch CBC WITH DIFF 2020-05-14 01:30:00 Peace Paz Yulia [facility] URINALYSIS 2020-05-14 01:08:00 Peace Paz [facility] POCT TEST 2020-05-14 01:08:00 Peace Paz [facility] CONSENT/REFUSAL FOR 2020-05-14 00:21:36 Doctor Unassigned, No [facility] [place] [facility]RE[facility] Name Medical Silva GARDASIL 9 (HPV 9V) 2019-12-30 15:25:24 Abena Patel [facility] VACCINE [facility] GARDASIL 9 (HPV 9V) 2019-09-27 20:17:36 Abena Patel [facility] VACCINE [facility] POCT URINALYSIS W/O 2019-09-27 19:58:00 Abena Patel [facility] SPECIFIC [facility] POCT TEST 2019-09-27 19:41:00 Abena Patel [facility] XR CHEST 1 VW 2019-08-18 15:36:27 Raven Goldsmith [facility] COVID-19 (ID NOW RAPID 2019-08-18 14:07:00 [facility] TESTING) Medical Branch RAPID STREP SCREEN FOR 2019-08-18 14:06:00 Raven [facility] GROUP A Medical Branch TEST, SERUM 2019-08-18 14:05:00 Raven Goldsmith [facility] HEPATIC FUNCTION PANEL 2019-08-18 14:05:00 Raven Goldsmith [facility] ([id number]) (ALB,T.PRO,BILI Medical Branch T,BU/BC,ALT,AST,ALK PHOS) BASIC METABOLIC PANEL 2019-08-18 14:05:00 Raven Goldsmith [facility] (NA, K, CL, CO2, Medical Branch GLUCOSE, BUN, CREATININE, CA) CBC WITH DIFFERENTIAL 2019-08-18 14:05:00 Raven Goldsmith [facility] PROTHROMBIN TIME / INR 2019-08-18 14:05:00 Raven Goldsmith [facility] ACTIVATED PARTIAL 2019-08-18 14:05:00 Raven Goldsmith [facility] THRMPLAS ISABELL [facility] CONSENT/REFUSAL FOR 2019-08-18 13:01:15 Doctor Unassigned, No [facility] Name Medical Branch CT CHEST PULMONARY 2019-07-29 04:01:04 [facility] ANGIOGRAM Medical Branch TROPONIN I 2019-07-29 01:38:00 Nick [facility] COMP. METABOLIC PANEL 2019-07-29 01:38:00 Nick [facility] ([id number]) Medical Branch CBC WITH DIFFERENTIAL 2019-07-29 01:38:00 Nick [facility] D-DIMER 2019-07-29 01:38:00 Nick [facility] XR CHEST 2 VW 2019-07-28 23:41:53 Nick [facility] EKG-12 LEAD 2019-07-28 23:31:26 Nick [facility] POCT TEST 2019-07-28 23:19:00 Yovani Romero [facility] COVID-19 (ID NOW RAPID 2019-07-28 23:18:00 Yovani Romero [facility] TESTING) Medical Branch NOTICE OF PRIVACY 2019-07-28 22:13:33 Doctor Unassigned, No [facility] PRACTICES Name Medical Branch CONSENT/REFUSAL FOR 2019-07-28 22:13:23 Doctor Unassigned, No [facility] DIAGNOSIS AND TREATMENT Name Medical Branch CT ABDOMEN PELVIS WO 2019-06-27 01:06:22 Lory Pimentel [facility] CONTRAST [facility] POCT TEST 2019-06-27 00:37:00 Lory [facility]imentel [facility] BAS[facility] METABOLIC PANEL 2019-06-27 00:32:00 Lory Pimentel I U [facility] (NA, K, CL, CO2, Medical Branch GLUCOSE, BUN, CREATININE, CA) CBC WITH DIFFERENTIAL 2019-06-27 00:32:00 Lory Pimentel [facility] 2019-06-27 00:32:00 Marvell Philo Moody [facility] GARDASIL 9 (HPV 9V) 2019-05-17 18:42:52 Abena Patel [facility] VACCINE [facility] POCT URINALYSIS W/O 2019-05-17 18:32:00 Abena Patel [facility] SPECIFIC GRAVITY [facility] POCT TEST 2019-04-20 19:21:00 Raven Goldsmith [facility] URINALYSIS 2019-04-20 19:20:00 Agus [facility] ADC / LCC - DRUG SCREEN 2019-04-20 19:20:00 Peace Paz [facility] TRIAGE [facility] LIPASE 2019-04-20 17:45:00 Agus [facility] COMP. METABOLIC PANEL 2019-04-20 17:45:00 Agus Raven [facility] ([id number]) [facility] CBC WITH DIFFERENTIAL 2019-04-20 17:45:00 [facility] HIV 1/2 AG-AB WITH 2019-03-21 22:15:00 Trever Katz [facility] REFLEX [facility] Plan of Care Planned Activity Planned Date Details Comments Source Future Scheduled Test CHLAMYDIA SCREENING [facility] [code = CHLAMYDIA SCREENING] Future Scheduled Test COVID-19 VACCINE (1) [facility] [code = COVID-19 VACCINE (1)] Future Scheduled Test Hepatitis C screening [facility] (procedure) [code = 939991756] Future Scheduled Test Screening for [facility] malignant neoplasm of cervix (procedure) [code = 307126785] Future Scheduled Test INFLUENZA VACCINE [facility] [code = INFLUENZA VACCINE] Encounters Start End Encounter Admission Attending Care Care Encounter Source Date/Time Date/Time Type Type Clinicians Facility Department ID 2021-01-07 Emergency [facility] [id number] Univers 07:14:20 ity of [facility] 2021-01-07 Emergency [facility] [id number] Univers 06:42:50 ity of [facility] 2021-01-07 Emergency [facility] [id number] Univers 06:25:23 ity of [facility] 2021-01-07 Emergency [facility] [id number] Univers 03:52:48 ity of [facility] 2021-01-07 Emergency [facility] [id number] Univers 03:25:06 ity of [facility] 2021-01-06 Emergency [facility] [id number] Univers 03:53:51 ity of [facility] 2020-09-21 Inpatient ER TESHA, [facility] Gastro [id number] SLEH 19:23:00 JOANNE 2021-01-11 2021-01-11 Hris Analyst Lab, [facility] 1.2.840. 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 [facility] [id number] Dwayne as Jorge?Blea [id number] Nh anselmo [address] Medical Office Building 2020-12-18 2020-12-18 Outpatient R JORGE [facility] [id number] Univers 09:00:00 09:00:00 ABENA [id number] [facility] 2020-12-18 2020-12-18 Outpatient R JORGE [facility] [id number] Univers 09:00:00 09:00:00 ABENA [facility] 2020-11-28 2020-11-28 Outpatient R RAFI, [facility] [id number] Univers 14:00:00 14:00:00 BILLIZZIE [id number] [facility] 2020-11-26 2020-11-26 Office Aditi [facility] [id number] Univers 07:48:27 09:58:10 Visit Richard [facility] [id number] [facility] [id number] Dwayne as Jorge?Blea [phone] Nh anselmo [address] Office [facility] 2020-11-26 2020-11-26 Outpatient RICHARD DYKES [facility] [id number] Univers 08:00:00 08:00:00 RICHARD PENNINGTON [id number] [facility] 2020-11-26 2020-11-26 Outpatient RICHARD DYKES [facility] [id number] Univers 08:00:00 08:00:00 RICHARD PENNINGTON [facility] 2020-11-20 2020-11-20 Outpatient RICHARD DYKES [facility] [id number] Univers 08:00:00 08:00:00 RICHARD PENNINGTON [id number] [facility] 2020-11-20 2020-11-20 Outpatient RICHARD DYKES [facility] [id number] Univers 08:00:00 08:00:00 RICHARD PENNINGTON [facility] 2020-11-14 2020-11-14 Telephone Aditi [facility] [id number] Univers 00:00:00 00:00:00 Richard Misael Foley [id number] [id number] [facility] [phone] Nh dical nal 0[address] [facility] 2020-11-01 2020-11-01 Office [facility] 1.2.840.114 [id number] Univers 13:43:12 14:35:39 Visit Liliana GREGORY [id number] ity of [facility] [id number] [facility] AT [id number] Nh dical VICTORY [address] [facility] 2020-11-01 2020-11-01 Outpatient R BRAD [facility] [id number] Univers 14:00:00 14:00:00 LILIANA [id number] [facility] 2020-11-01 2020-11-01 Outpatient R BRAD [facility] [id number] Univers 14:00:00 14:00:00 LILIANA [facility] 2020-10-22 2020-10-22 Outpatient R BRAD [facility] [id number] Univers 13:00:00 13:00:00 LILIANA [id number] [facility] 2020-10-19 2020-10-19 Outpatient R RICHARD PENNINGTON [facility] [id number] Univers 08:40:00 08:40:00 RICHARD PENNINGTON [facility] 2020-10-18 2020-10-18 [facility] 1.2.840.114 [id number] Univers 12:54:28 23:59:00 Encounter Lauryn Foley [id number] [facility] [id number] [id number] [facility] 804 Branch 2020-10-18 2020-10-18 Outpatient R DESIREE [facility] [id number] Univers 13:00:00 13:00:00 LAURYN [id number] cassius o [facility] 2020-10-18 2020-10-18 Outpatient R DESIREE [facility] [id number] Univers 00:00:00 00:00:00 LAURYN hammonds o [facility] 2020-10-15 2020-10-15 [place] [facility] 1.2.840.114 [id number] 00:00:00 00:00:00 Abena N STILL OPERATOR GIN [id number] REGIONAL [id number] MATERNAL [id number] & CHILD [address] [place] [address] 2020-10-15 2020-10-15 [facility] [id number] [facility] 00:00:00 00:00:00 Abena N STILL OPERATOR GIN [id number] it y of REGIONAL [id number] Dwayne as MATERNAL [id number] [facility] & CHILD [address] [place] [address] 2020-10-12 2020-10-12 [facility] 1.2.840.114 [id number] 00:00:00 00:00:00 Abena N STILL OPERATOR GIN [id number] REGIONAL [id number] MATERNAL [id number] & CHILD [address] [place] [address] 2020-10-12 2020-10-12 [facility] 1.2.840.114 [id number] [facility] 00:00:00 00:00:00 Abena N STILL OPERATOR GIN [id number] it y of REGIONAL [id number] Dwayne as MATERNAL [phone] Med [facility] & [address] 2020-10-11 2020-10-11 [facility] [id number] Univers 15:15:00 15:15:00 ABENA [id number] cassius [facility] 2020-10-11 2020-10-11 Outpatient R JORGE [facility] [id number] Univers 15:15:00 15:15:00 ABENA hammonds [facility] 2020-10-11 2020-10-11 [place] [facility] 1.2.840.114 [id number] 00:00:00 00:00:00 Abena N STILL OPERATOR GIN [id number] REGIONAL [id number] MATERNAL [id number] & CHILD [address] [place] [address] 2020-10-11 2020-10-11 Telephone [facility] 1.2.840.114 [id number] Univers 00:00:00 00:00:00 Abena Camarillo STILL OPERATOR GIN [id number] it y of [facility] [id number] Dwayne as MATERNAL [phone] [facility] & CHILD [address] [place] [address] 2020-10-09 2020-10-09 Office [facility] [id number] 15:44:08 16:29:53 Visit Abena Camarillo STILL OPERATOR GIN [id number] REGIONAL [id number] MATERNAL [id number] & [address] 2020-10-09 2020-10-09 Office [facility] [id number] Univers 15:44:08 16:29:53 Visit Abena Camarillo STILL OPERATOR GIN [id number] it y of [facility] [id number] Dwayne as MATERNAL [id number] [facility] & CHILD [address] [place] [address] 2020-10-09 2020-10-09 Outpatient R [facility] [id number] Univers 15:45:00 15:45:00 ABENA hammonds [facility] 2020-10-09 2020-10-09 Orders Doctor COLT 1.2.840.114 [id number] Univers 00:00:00 00:00:00 Only Unassigned, STEPHANIA [id number] ity of [place] [facility] [id number] Dwayne as [id number] [facility] 009 Branch 2020-10-08 2020-10-08 Transition Julio Grant 1.2.840.114 [id number] Univers 00:00:00 00:00:00 of Care Mesfin Guerrero [id number] [place]y [id number] [id number] [facility] [address] 2020-10-01 2020-10-05 Hospital Mary Rios 1.2.840.114 [id number] Univers 09:39:00 10:22:00 Encounter S [place] [id number] [facility] [id number] Dwayne as [id number] [facility] 098 Branch 2020-10-01 2020-10-01 Outpatient R [facility] [id number] Univers 08:30:00 08:30:00 [id number] ity of [facility] 2020-10-01 2020-10-01 Outpatient R MARY RIOS [facility] [id number] Univers 08:30:00 08:30:00 ity [facility] 2020-10-01 2020-10-01 Orders Doctor GREGORY 1.2.840.114 [id number] Univers 00:00:00 00:00:00 Only Unassigned, STEPHANIA [id number] ity of [place] [facility] [id number] Dwayne as [id number] [facility] 009 Silva 2020-09-30 2020-09-30 Orders Doctor GREGORY 1.2.840.114 [id number] Univers 00:00:00 00:00:00 Only Unassigned, STEPHANIA [id number] ity of [place] [facility] [id number] Dwayne as [id number] [facility] 009 Silva 2020-09-28 2020-09-28 Outpatient R JORGE [facility] [id number] Univers 09:30:00 09:30:00 ABENA [id number] ity [facility] 2020-09-28 2020-09-28 Outpatient R JORGE [facility] [id number] Univers 09:30:00 09:30:00 ABENA ity [facility] 2020-09-27 2020-09-27 Outpatient R [facility] [id number] -[id number] Univers 11:45:00 11:45:00 [id number] ity [facility] 2020-09-26 2020-09-26 Laboratory Only, Adc Test [facility] 1.2.840. 114 [id number] Univers 12:05:49 12:20:49 Only Mary Rios S Condon 350.1.13.10 [place] [phone] [facility] [address] 2020-09-26 2020-09-26 Outpatient R [facility] [id number] -[id number] Univers 12:00:00 12:00:00 [id number] ity of [facility] 2020-09-26 2020-09-26 Outpatient R [facility] [id number] Univers 12:00:00 12:00:00 ity of [facility] 2020-09-26 2020-09-26 Orders Doctor GREGORY 1.2.840.114 [id number] Univers 00:00:00 00:00:00 Only Unassigned, STEPHANIA 350.1.13.10 [facility] 4.2.7.2.686 Dway[place] as [phone] [facility] [address] 2020-09-21 2020-09-21 Outpatient R RICHARD PENNINGTON [facility] [id number] Univers 10:00:00 10:00:00 RICHARD PENNINGTON [id number] ity of [facility] 2020-09-21 2020-09-21 Outpatient R RICHARD PENNINGTON [facility] [id number] Univers 10:00:00 10:00:00 RICHARD PENNINGTON ity of [facility] 2020-09-14 2020-09-15 Emergency Glenis, TRAUMA 1.2.889.109 [id number] Univers 21:58:00 00:49:00 Cheo MOORE 350.1.13.10 [place] [phone] [facility] [address] 2020-09-12 2020-09-13 Emergency Peace Paz [facility] 1.2.840.114 [id number] Univers 19:41:00 00:37:00 Yulia Foley 350.1.13.10 [place] [phone] [facility] [address] 2020-09-12 2020-09-12 Telephone Aditi [facility] 1.2.840.114 [id number] Univers 00:00:00 00:00:00 Richard Foley 350.1.13.10 [place] [facility] [phone] [facility] 092 [facility] 2020-09-11 2020-09-11 Emergency [facility] 1.2.103.849 [id number] Univers 20:23:00 22:08:00 Wong Foley 350.1.13.10 i ty of [place] 4.2.7.2.686 [facility] [phone] [address] 2020-08-31 2020-08-31 Emergency Kwaku, [facility] 1.2.840.114 [id number] Univers 11:19:00 13:58:00 Yulia Foley 350.1.13.10 i ty of [place] 4.2.7.2.686 [facility] [id number] [address] 2020-08-29 2020-08-29 Emergency Kwaku, [facility] 1.2.840.114 [id number] Univers 20:48:00 23:11:00 Yulia Foley 350.1.13.10 i ty of [place] 4.2.7.2.686 [facility] [phone] [address] 2020-06-07 2020-06-07 [facility] 1.2.477.171 [id number] Univers 10:50:31 11:18:03 Visit Alma Estevez STILL OPERATOR GIN 350.1.13.[address] [facility] 4.2.7.2.686 Dwayne as MATERNAL [phone] Med ical & CHILD [address] [place] [address] 2020-06-07 2020-06-07 Outpatient R IRMA [facility] [id number] 5Q-20 Univers 11:00:00 11:00:00 ALMA [id number] cassius pierce [facility] 2020-06-07 2020-06-07 Outpatient Bryn SOLIS [facility] [id number] Univers 11:00:00 11:00:00 ALMA pierce [facility] 2020-05-29 2020-05-29 Patient Alfred [facility] 1.2.840.114 [id number] Univers 00:00:00 00:00:00 Outreach Santosh AN 350.1.13.10 i ty of [facility] [place].2.[place] [facility] [phone] Nh dical [address] 2020-05-13 2020-05-13 Emergency Peace Paz [facility] 1.2.840.114 [id number] Univers 19:12:00 21:45:00 Yulia Condon 350.1.13.10 [place] [phone] [facility] [address] 2020-05-13 2020-05-13 Orders Doctor COLT 1.2.840.114 [id number] Univers 00:00:00 00:00:00 Only Unassigned, STEPHANIA 350.1.13.10 ity of [place] [facility] 4.2.7.2.686 Dwayne as [phone] [facility] [address] 2020-03-22 2020-03-22 Outpatient [facility] [id number] -[id number] Univers 13:30:00 13:30:00 [id number] ity of [facility] 2020-01-19 2020-01-19 Telephone Visit, [facility] 1.2.963.474 [id number] Univers 00:00:00 00:00:00 [facility] STILL OPERATOR GIN 350.1.13.10 ity of Nurse [facility] 4.2.7.2.686 Dwayne as MATERNAL [phone] [facility] ical & CHILD [address] [place] [address] 2020-01-17 2020-01-17 Office [facility] 1.2.840.114 [id number] Univers 13:39:45 14:25:08 Visit Trever Clemente STILL OPERATOR GIN 350.1.13.10 ity of [facility] 4.2.7.2.686 Dwayne as MATERNAL [phone] [facility] & CHILD [address] [place] [address] 2020-01-17 2020-01-17 Outpatient Bryn KATZ [facility] [id number] -20 Univers 13:45:00 13:45:00 TREVER [id number] ity o f [facility] 2020-01-17 2020-01-17 Outpatient Bryn KATZ [facility] [id number] Univers 13:45:00 13:45:00 ROSBELINDANDA ity o f [facility] 2020-01-16 2020-01-16 Telephone Gianna [facility] 1.2.899.156 [id number] Univers 00:00:00 00:00:00 Lunda R STILL OPERATOR GIN 350.1.13.10 ity of [facility] 4.2.7.2.686 D[place] as MATERNAL [phone] [facility] & CHILD [address] [place] [address] 2019-12-30 2019-12-30 Nurse Visit, Reddy-Rmchp Nurse [facility] 1.2 .840.114 [id number] Univers 10:22:21 10:37:21 Visit Abena Patel STILL OPERATOR GIN 350.1.13.10 ity of [facility] 4.2.7.2.686 [place] as MATERNAL [phone] [address] 2019-12-30 2019-12-30 Outpatient R [facility] [id number] -[id number] Univers 10:30:00 10:30:00 [id number] ity [facility] 2019-12-30 2019-12-30 Outpatient R [facility] [id number] Univers 10:30:00 10:30:00 ity of [facility] 2019-12-21 2019-12-21 Telephone [facility] 1.2.797.860 [id number] Univers 00:00:00 00:00:00 Trever R STILL OPERATOR GIN 350.1.13.10 ity of [facility] 4.2.7.2.686 [place]way[place] as MATERNAL [id number] [address] 2019-12-20 2019-12-20 Office Gianna [facility] 1.2.840.114 [id number] Univers 13:03:11 13:55:34 Visit Trever R STILL OPERATOR GIN 350.1.13.10 ity of [facility] 4.2.7.2.686 [place]way[place] as MATERNAL [id number] [address] 2019-12-20 2019-12-20 Outpatient R GIANNA [facility] [id number] -[id number] Univers 12:45:00 12:45:00 TREVER [id number] ity o f [facility] 2019-12-20 2019-12-20 [facility] [id number] Univers 12:45:00 12:45:00 TREVER ity o f [facility] 2019-11-07 2019-11-07 Outpatient R [facility] [id number] -[id number] Univers 14:00:00 14:00:00 [id number] [facility] 2019-10-24 2019-10-24 Telephone [facility] 1.2.840.114 [id number] Univers 00:00:00 00:00:00 Abena Camarillo STILL OPERATOR GIN 350.1.13.10 it y of REGIONAL 4.2.7.2.686 [place] as MATERNAL [phone] [facility] CHILD [address] [place] [address] 2019-10-17 2019-10-17 Outpatient R [facility] [id number] -[id number] Univers 15:00:00 15:00:00 [facility] 2019-10-17 2019-10-17 Outpatient R [facility] [id number] Univers 15:00:00 15:00:00 [facility] 2019-09-28 2019-09-28 Telephone [facility] 1.2.840.114 [id number] Univers 00:00:00 00:00:00 Abena Camarillo STILL OPERATOR GIN 350.1.13.10 it y of REGIONAL 4.2.7.2.686 Dwayne as MATERNAL [id number] [facility] & [address] 2019-09-27 2019-09-27 Office [facility] 1.2.218.784 [id number] Univers 14:03:06 14:59:44 Visit Abena Camarillo STILL OPERATOR GIN 350.1.13.10 it y of [facility] 4.2.7.2.686 Dwayne as MATERNAL [phone] [facility] & [address] 2019-09-27 2019-09-27 [facility] [id number] 5Q-20 Univers 14:00:00 14:00:00 ABENA [id number] [facility] 2019-09-27 2019-09-27 [facility] [id number] Univers 14:00:00 14:00:00 ABENA [facility] 2019-08-26 2019-08-26 Hris Analyst Lab, [facility] 1.2.840. 114 [id number] Univers 12:52:43 13:06:01 Visit Alma Solis STILL OPERATOR GIN 350.1.13. [address] [facility] 4.2.7.2.686 Dwayne as MATERNAL [phone] Med ical & CHILD [address] [place] [address] 2019-08-26 2019-08-26 Outpatient R [facility] [id number] -[id number] Univers 13:00:00 13:00:00 [id number] ity [facility] 2019-08-26 2019-08-26 [facility] [id number] Univers 13:00:00 13:00:00 ALMA hammonds o f [facility] 2019-08-19 2019-08-19 Outpatient R [facility] [id number] -[id number] Univers 13:00:00 13:00:00 [id number] ity [facility] 2019-08-19 2019-08-19 Outpatient R [facility] [id number] Univers 13:00:00 13:00:00 ity of [facility] 2019-08-18 2019-08-18 Outpatient R [facility] [id number] -[id number] Univers 13:00:00 13:00:00 [id number] ity [facility] 2019-08-18 2019-08-18 Outpatient R [facility] [id number] Univers 13:00:00 13:00:00 ity of [facility] 2019-08-18 2019-08-18 Emergency [facility] [id number] Univers 08:24:15 11:52:00 RAVEN [facility] 2019-08-18 2019-08-18 Emergency [facility] 1.2.592.878 [id number] Univers 08:24:15 11:52:00 Raven Annton 350.1.13.10 i ty of [place] 4.2.7.2.686 [facility] [phone] [facility] [address] 2019-08-18 2019-08-18 Orders Doctor COLT 1.2.840.114 [id number] Univers 00:00:00 00:00:00 Only Unassigned, STEPHANIA 350.1.13.10 ity of [place] [facility] 4.2.7.2.686 Dwayne as [phone] [facility] [address] 2019-07-31 2019-07-31 Telephone COLT Miramontes 1.2.335.107 [id number] Univers 00:00:00 00:00:00 Gabbierosa CAT 350.1.13.10 i ty of [facility] 4.2.7.2.686 Dwayne as [id number] [facility] [address] 2019-07-28 2019-07-29 Emergency X NICK, [facility] ERT [id number] Univers 18:06:33 00:02:00 SHINTA [facility] 2019-07-28 2019-07-29 Emergency [facility] 1.2.840.114 [id number] Univers 18:06:33 00:02:00 [facility] 350.1.13.10 i ty [facility] 4.2.7.2.686 [place] [facility] [id number] [facility] [address] 2019-07-18 2019-07-18 Telemedici [facility] 1.2.840.114 [id number] Univers 12:55:14 14:20:25 ne Visit Alma Estevez STILL OPERATOR GIN 350.1.13.[address] [facility] 4.2.7.2.686 Dwanye as MATERNAL [phone] Med ical & CHILD [address] [place] [address] 2019-07-18 2019-07-18 [facility] [id number] 5Q-[id number] Univers 14:00:00 14:00:00 ALMA [id number] ity o f [facility] 2019-07-18 2019-07-18 Outpatient R IRMA, [facility] [id number] Univers 14:00:00 14:00:00 ALMA ity o f [facility] 2019-06-27 2019-06-27 Outpatient R [facility] [id number] -[id number] Univers 15:30:00 15:30:00 [id number] ity [facility] 2019-06-27 2019-06-27 Outpatient R [facility] [id number] Univers 15:30:00 15:30:00 [facility] 2019-06-26 2019-06-26 Emergency X CIARA [facility] ERT [id number] Univers 19:06:29 21:03:00 LORY ity of [facility] 2019-06-26 2019-06-26 Emergency Pimentel, [facility] 1.2.840.114 [id number] Univers 19:06:29 21:03:00 Lory [facility] 350.1.13.10 ity of [place].2.[place] janessa Arreola [phone] [address] ([facility]) 2019-06-26 2019-06-26 Telephone Irma [facility] 1.2.840.114 [id number] Univers 00:00:00 00:00:00 Alma Estevez STILL OPERATOR GIN 350.1.13.10 ity of REGIONAL 4.2.7.2.686 Dwayne as MATERNAL [phone] Med ical & CHILD [address] [place] [address] 2019-06-24 2019-06-24 Outpatient R [facility] [id number] -[id number] Univers 09:30:00 09:30:00 [id number] ity [facility] 2019-06-24 2019-06-24 Outpatient R [facility] [id number] Univers 09:30:00 09:30:00 ity [facility] 2019-06-23 2019-06-23 Telemedici [facility] 1.2.840.114 [id number] Univers 12:57:38 15:49:57 ne Visit Alma Estevez STILL OPERATOR GIN 350.1.13.10 ity of REGIONAL 4.2.7.2.686 Dwayne as MATERNAL [id number] [facility] & CHILD [address] [place] [address] 2019-06-23 2019-06-23 Outpatient IRMA [facility] [id number] [id number] Univers 15:30:00 15:30:00 ALMA [id number] ity o f [facility] 2019-06-23 2019-06-23 Outpatient R IRMA [facility] [id number] Univers 15:30:00 15:30:00 ALMA garciay o f [facility] 2019-06-22 2019-06-22 Outpatient R JORGE [facility] [id number] Univers 13:30:00 13:30:00 ABENA ityloie [facility] 2019-06-22 2019-06-22 Outpatient [facility] [id number] -[id number] Univers 09:00:00 09:00:00 [id number] ity of [facility] 2019-06-22 2019-06-22 Telephone Visit, [facility] 1.2.661.106 [id number] Univers 00:00:00 00:00:00 [facility] STILL OPERATOR GIN 350.1.13.10 ity of Nurse [facility] 4.2.7.2.686 Dwayne as MATERNAL [phone] Med ical & CHILD [address] [place] [address] 2019-06-22 2019-06-22 Refill Doctor [facility] 1.2.840.114 [id number] Univers 00:00:00 00:00:00 Unassigned, STILL OPERATOR GIN 350.1.13.10 ity of [place] [facility] 4.2.7.2.686 Dwayne as MATERNAL [phone] Med ical & CHILD [address] [place] [address] 2019-06-21 2019-06-21 Hris Analyst Lab, [facility] 1.2.840. 114 [id number] Univers 13:00:32 13:15:32 Visit Alma Solis STILL OPERATOR GIN 350.1.13. 10 ity of [facility] 4.2.7.2.686 Dwayne as MATERNAL [id number] [facility] & CHILD [address] [place] [address] 2019-06-21 2019-06-21 Outpatient [facility] [id number] -[id number] Univers 10:30:00 10:30:00 [id number] ity of [facility] 2019-06-21 2019-06-21 Outpatient R IRMA [facility] [id number] Univers 10:30:00 10:30:00 ALMA garciay o f [facility] 2019-06-21 2019-06-21 Telephone [facility] 1.2.840.114 [id number] Univers 00:00:00 00:00:00 Abena Camarillo STILL OPERATOR GIN 350.1.13.10 it y of [facility] 4.2.7.2.686 Dwayne as MATERNAL [id number] Med ical & CHILD [address] [place] [address] 2019-06-20 2019-06-20 Telephone [facility] 1.2.840.114 [id number] Univers 00:00:00 00:00:00 Abena N STILL OPERATOR GIN 350.1.13.10 it y of REGIONAL 4.2.7.2.686 Dwayne as MATERNAL [id number] Med ical & CHILD [address] [place] [address] 2019-06-10 2019-06-10 Telephone [facility] 1.2.840.114 [id number] Univers 00:00:00 00:00:00 Abena N STILL OPERATOR GIN 350.1.13.10 it y of REGIONAL 4.2.7.2.686 Dwayne as MATERNAL [id number] Med ical & CHILD [address] [place] [address] 2019-05-20 2019-05-20 [facility] 1.2.840.114 [id number] Univers 00:00:00 00:00:00 Abena N STILL OPERATOR GIN 350.1.13.10 it y of REGIONAL 4.2.7.2.686 Dwayne as MATERNAL [id number] Med ical & CHILD [address] [place] [address] 2019-05-19 2019-05-19 [facility] 1.2.840.114 [id number] Univers 00:00:00 00:00:00 Abena N STILL OPERATOR GIN 350.1.13.10 it y of REGIONAL 4.2.7.2.686 Dwayne as MATERNAL [id number] Med ical & CHILD [address] [place] [address] 2019-05-17 2019-05-17 Office [facility] 1.2.308.895 [id number] Univers 13:24:09 13:50:08 Visit Abena N STILL OPERATOR GIN 350.1.13.10 it y of REGIONAL 4.2.7.2.686 Dwayne as MATERNAL [id number] Med ical & CHILD [address] [place] [address] 2019-05-17 2019-05-17 Outpatient Bryn PATEL [facility] [id number] 5Q-20 Univers 13:30:00 13:30:00 ABENA [id number] ity [facility] 2019-05-17 2019-05-17 Outpatient Bryn PATEL [facility] [id number] Univers 13:30:00 13:30:00 ABENA hammonds [facility] 2019-05-06 2019-05-06 Outpatient Bryn KATZ [facility] [id number] -[id number] Univers 08:15:00 08:15:00 TREVER [id number] ity o f [facility] 2019-05-06 2019-05-06 Outpatient R GIANNA [facility] [id number] Univers 08:15:00 08:15:00 TREVER ity o f [facility] 2019-04-20 2019-04-20 Emergency Peace Paz [facility] 1.2.840.114 [id number] Univers 11:02:10 14:18:00 [facility] 350.1.13.10 i ty [place].2.[place] [id number] [address] 2019-03-29 2019-03-29 Telephone [facility] 1.2.450.770 [id number] Univers 00:00:00 00:00:00 Trever R STILL OPERATOR GIN 350.1.13.10 ity of [facility] 4.2.7.2.686 Dwayne as MATERNAL [id number] [facility] CHILD [address] [place] [address] 2019-03-22 2019-03-22 [facility] 1.2.712.402 [id number] Univers 00:00:00 00:00:00 Trever R STILL OPERATOR GIN 350.1.13.10 ity of [facility] 4.2.7.2.686 Dwayne as MATERNAL [id number] [facility] & [address] 2019-03-21 2019-03-21 [facility] 1.2.840.114 [id number] Univers 15:39:38 16:25:05 Visit Trever R STILL OPERATOR GIN 350.1.13.10 ity of [facility] 4.2.7.2.686 Dwayne as MATERNAL [phone] [facility] & [address] Results Test Description Test Test Results Result Source Time Comments Comments MR BRAIN W WO 2020-10- Normal MRI of the Uni versity of CONTRAST 12 brain.. NeuroQuant [facility] 21:16:55 Hippocampal Asymmetry Bra [facility] [employer] [facility] Report demonstrates Normal Scan: Does notsupport the [...] volumetry of the brain was performed using NeuroQuant([employer], [place], [place]) software package. The NeuroQuantanalysis was based on [...] were within 2 SD of the mean. [facility] [[email or web address]], Radiant Results Inft User - 10/18/2020 4:18 PM CDT MR BRAIN W WO CONTRASTCOMPARISON: MR brain 11/24/2017.HISTORY: seizures TECHNIQUE: Seizure protocol MRI of the brain was performed prior to andafter intravenous contrast administration. Quantitative volumetry of the brain was performed using NeuroQuant([employer], [place], [place]) software package. The NeuroQuantanalysis was based on [...] Item Value Reference Range Interpretation Comme nts [place] (test code = 0615722948) 0.8 mmol/L 0.6-1.2 MARCELLE (test code = MARCELLE) Toxic Range: ? Greater than 1.2 mmol/L Lab Interpretation (test code = 71990-4) Normal [facility] [id number] 18:22:00 Test Item Value Reference Range Interpretation Comments LITHIUM LEVEL (BEAKER) 0.8 mmol/L 0.8-1.2 (test code = 630) SCAN RESULT (test code = See Scanned Report [id number]) [place], [id number] 14:13:01Reason for exam:->abnormal imaging [facility] CENTERName: VALORIE ROTHMAN : 1995 Sex: FFluoroscopic unit utilized for a procedure performed in the OR. No interpretation was requested. Refer to the operative report for findings. Refer to PACS for patient radiation dose information.COMPREHENSIVE METABOLIC [id number] 06:43:00 Test Item Value Reference Range Interpretation [...] S NOT APPLICABLE FOR DIALYSIS PATIEN TS. Escalator Operator ID - MADISON [facility] (HEMOGRAM ONLY)2020-09-24 06:04:00 Test Item Value Reference [...] (BEAKER) (test code = 413) COMPREHENSIVE METABOLIC [id number] 07:06:00 Test Item Value Reference Range Interpretation [...] S NOT APPLICABLE FOR DIALYSIS PATIEN TS. Escalator Operator ID - PIAYA [facility] (HEMOGRAM ONLY)2020-09-23 [...] (BEAKER) (test code = 413) COMPREHENSIVE METABOLIC [id number] 08:27:00 Test Item Value Reference Range Interpretation [...] S NOT APPLICABLE FOR DIALYSIS PATIEN TS. Escalator Operator ID - MADISON [id number] 08:27:00 Test Item Value Reference Range Interpretation Comments MAGNESIUM (BEAKER) (test code = 2.4 mg/dL 1.6-2.6 627) Escalator Operator ID - MADISON MPROTHROMBIN [id number] 07:59:00 Test Item Value Reference Range Interpretation Comments PROTIME (BEAKER) 13.0 seconds 11.9-14.2 (test code = 759) INR (BEAKER) (test 1.00 See_Comment [Automat ed message] code = 370) The system NComputing generated this result transmitted ref erence range: [...] code = 2801) DRUG SCREEN PANEL 2 [id number] 05:19:56 Test Item Value Reference Range Interpretation Comments AMPHET (test code = Negative Negative 3934939864) VALERIE U (test code = Negative Negative 9854414655) BENZO U (test code = Negative Negative 6764615617) Cocaine Metabolite (test Negative Negative code = 6746370817) METHADONE (test code = Negative Negative 7798057877) OPIATES (test code = Negative Negative 1174458614) PCP (test code = Negative Negative 9053863602) THC (test code = Negative Negative 5590091602) MARCELLE (test code = MARCELLE) Urine Drug [...] testing). Lab Interpretation (test Normal code = 42481-0) [facility] WITH [id number] 04:55:16 Test Item Value Reference Range Interpretation [...] RDW-SD (test code = 41.8 fL 39.0-49.9 34050-9) RDW-CV (test code = 12.7 % 12.0-15.5 788-0) PLT (test code = See_Comment [Automated 777-3) message] The sy stem which generated this result transmitted reference range : 166 - 358 10*3/ ?L. The reference r david was not used to interpret this result as normal/abnormal . MPV (test code = 9.3 fL 9.5-12.9 L 68974-5) NRBC/100 WBC (test See_Comment [Automat ed code = 1765767810) message] The system which generated this result transmitted reference range : 0.0 - 10.0 /100 WBCs. The refer ence range was not u sed to interpret th is result as normal/abnormal . NRBC x10^3 (test code <0.01 See_Comment [Auto mated = 6726374047) message] The s ystem which generated this result transmitted reference range : 10*3/?L. The reference range was not used to interpret this result as normal/abnormal . GRAN MAT (NEUT) % 54.5 % (test code = 770-8) IMM GRAN % (test code 1.10 % = 9591191131) LYMPH % (test code = 36.2 % 736-9) MONO % (test code = 6.8 % 5905-5) EOS % (test code = 1.2 % 713-8) BASO % (test code = 0.2 % 706-2) GRAN MAT x10^3(ANC) 6.13 10*3/uL 1.88-7.09 (test code = [id number]) IMM GRAN x10^3 (test 0.12 10*3/uL 0.00-0.06 H code = [id number]) LYMPH x10^3 (test code 4.07 10*3/uL 1.32-3.29 H = 731-0) MONO x10^3 (test code 0.76 10*3/uL 0.33-0.92 = 742-7) EOS x10^3 (test code = 0.14 10*3/uL 0.03-0.39 711-2) BASO x10^3 (test code <0.03 0.01-0.07 = 704-7) Lab Interpretation Abnormal (test code = 53864-9) [id number]:00 Test Item Value Reference Range Interpretation Comments POCT PREG (test code = 1605) negative POCT PREG LOT # (test code = 3575) [id number] POCT PREG TEST DATE (test 03-08-2022 code = 3576) Lab Interpretation (test code = Normal 19540-0) [facility] 04:44:46 Test Item Value Reference Range Interpretation Comments APPEARANCE (test code = Clear Clear [id number]) COLOR (test code = Straw Yellow A [id number]) PH (test code = 4.8-8.0 5277044909) SP GRAVITY (test code = 1.003-1.030 8344441055) GLU U QUAL (test code = Normal Normal 2554786271) BLOOD (test code = Negative Negative 7564076048) KETONES (test code = Negative Negative 5217042029) PROTEIN (test code = Negative Negative 2887-8) UROBILIN (test code = Normal Normal 3762329219) BILIRUBIN (test code = Negative Negative 0432894585) NITRITE (test code = Negative Negative 8625030774) LEUK WILBERT (test code = Negative Negative 5358303079) RBC/HPF (test code = See_Comment [Autom ated message] 2456851159) The system NComputing generated this result transmitted ref erence range: 0 - 3 HP F. The reference range was not used to int erpret this result as normal/abnormal . WBC/HPF (test code = See_Comment [Autom ated message] 2336483570) The system [employer]Comput[employer] generated this result transmitted ref erence range: 0 - 5 HP F. The reference range was not used to int erpret this result as normal/abnormal . BACTERIA (test code = Negative Negative 1116706769) SQ EPITH (test code = See_Comment H [Auto mated message] 4860796915) The system NComputing generated this result transmitted ref erence range: <=2 HPF. The reference range was not used to int erpret this result as normal/abnormal . Lab Interpretation (test Abnormal code = 68730-6) [facility] 04:38:17 Test Item Value Reference Range Interpretation Comments ALCOHOL (test code = <10 mg/dL 6376135488) MARCELLE (test code = Toxic Greater than or MARCELLE) equal to 80 mg/dL. NOTE: Whole blood values are approximately 10% to 15% lower than serum and plasma. [facility]CREAT[facility] [id number] 04:38:12 Test Item Value Reference Range Interpretation Comments CK (test code = 0775680190) <20 33-194 L Lab Interpretation (test code = Abnormal 08754-0) [facility]COMP. METABOLIC PANEL (08865)2020-09-15 04:38:07 Test Item Value Reference Range Interpretation Comments NA (test code = 141 mmol/L 135-145 7916336374) K (test code = 3.7 mmol/L 3.5-5.0 5674555742) CL (test code = 108 mmol/L 98-108 8058212378) CO2 TOTAL (test code = 25 mmol/L 23-31 4214755949) AGAP (test code = 2-16 0592290438) BUN (test code = 9 mg/dL 7-23 4932496978) GLUCOSE (test code = 89 mg/dL 70-110 2587530095) CREATININE (test code = 0.54 mg/dL 0.50-1.04 5138925699) TOTAL BILI (test code = <0.1 0.1-1.1 L 3899070160) CALCIUM (test code = 9.0 mg/dL 8.6-10.6 0643132229) T PROTEIN (test code = 5.8 g/dL 6.3-8.2 L 0258665075) ALBUMIN (test code = 3.4 g/dL 3.5-5.0 L 9522140981) ALK PHOS (test code = 71 U/L 34-122 4712030504) ALTv (test code = 13 U/L 5-35 1742-6) AST(SGOT) (test code = 18 U/L 13-40 8749208399) eGFR (test code = mL/min/1.73m2 5988270943) MARCELLE (test code = MARCELLE) Association of [...] tests). Lab Interpretation Abnormal (test code = 90770-1) [facility] HospitalUrinalysis2021-06-25 17:30:33 Test Item Value Reference Range Interpretation Comments APPEARANCE (test code = Hazy Clear A 8478012519) COLOR (test code = Straw Yellow A 8892884875) PH (test code = 4.8-8.0 6963739152) SP GRAVITY (test code = 1.003-1.030 0921995754) GLU U QUAL (test code = Normal Normal 6319982883) BLOOD (test code = Negative Negative 4126304544) KETONES (test code = Negative Negative 2627951172) PROTEIN (test code = Negative Negative 2887-8) UROBILIN (test code = Normal Normal 5890975481) BILIRUBIN (test code = Negative Negative 7137763101) NITRITE (test code = Negative Negative 8624795370) LEUK WILBERT (test code = 500/uL Negative A 8532173579) RBC/HPF (test code = See_Comment [Autom ated message] 2025112544) The system NComputing generated this result transmitted ref erence range: 0 - 3 HP F. The reference range was not used to int erpret this result as normal/abnormal . WBC/HPF (test code = See_Comment H [Autom ated message] 1172667283) The system NComputing generated this result transmitted ref erence range: 0 - 5 HP F. The reference range was not used to int erpret this result as normal/abnormal . BACTERIA (test code = Few Negative A 5668648760) SQ EPITH (test code = HPF 1801859762) WBC CLUMPS (test code = See_Comment H [Au tomated message] 0242408628) The system NComputing generated this result transmitted ref erence range: <=1 HPF. The reference range was not used to int erpret this result as normal/abnormal . Lab Interpretation (test Abnormal code = 20621-3) [facility]PO[facility] [id number] 17:08:00 Test Item Value Reference Range Interpretation Comments POCT PREG (test code = 1605) negative On board controls acceptable with present C Line (test code = 3574) POCT PREG LOT # (test code = 3575) [id number] POCT PREG TEST DATE (test code = 357) Lab Interpretation (test code = Normal 11581-4) [facility]. Metabolic Panel (18167)2020-08-31 16:55:49 Test Item Value Reference Range Interpretation Comments NA (test code = 141 mmol/L 135-145 7179293661) K (test code = 3.9 mmol/L 3.5-5.0 9259053624) CL (test code = 106 mmol/L 98-108 1977781916) CO2 TOTAL (test code = 27 mmol/L 23-31 3547526979) AGAP (test code = 2-16 6609345639) BUN (test code = 5 mg/dL 7-23 L 7795042834) GLUCOSE (test code = 91 mg/dL 70-110 7672047228) CREATININE (test code = 0.68 mg/dL 0.50-1.04 3483810239) TOTAL BILI (test code = 0.2 mg/dL 0.1-1.7 4904677298) CALCIUM (test code = 10.0 mg/dL 8.6-10.6 2960189059) T PROTEIN (test code = 7.2 g/dL 6.3-8.2 1232023289) ALBUMIN (test code = 4.3 g/dL 3.5-5.0 8707758311) ALK PHOS (test code = 75 U/L 34-122 2626969259) ALTv (test code = 14 U/L 5-35 1742-6) AST(SGOT) (test code = 30 U/L 13-40 0243779072) eGFR (test code = mL/min/1.73m2 7834117305) MARCELLE (test code = MARCELLE) Association of [...] tests). Lab Interpretation Abnormal (test code = 58142-7) [facility] with [id number] 16:51:47 Test Item Value Reference Range Interpretation Comments WBC (test code = See_Comment [Automated 9990-2) message] The sy stem which generated this result transmitted reference range : 4.30 - 11.10 10*3/?L. The reference range was not used to interpret this result as normal/abnormal . RBC (test code = See_Comment [Automated 252-8) message] The sy stem which generated this [...] RDW-SD (test code = 43.1 fL 39.0-49.9 87390-5) RDW-CV (test code = 13.1 % 12.0-15.5 788-0) PLT (test code = See_Comment [Automated 777-3) message] The sy stem which generated this result transmitted reference range : 166 - 358 10*3/ ?L. The reference r david was not used to interpret this result as normal/abnormal . MPV (test code = 10.3 fL 9.5-12.9 22292-4) NRBC/100 WBC (test See_Comment [Automat ed code = 9459128793) message] The system which generated this result transmitted reference range : 0.0 - 10.0 /100 WBCs. The refer ence range was not u sed to interpret th is result as normal/abnormal . NRBC x10^3 (test code <0.01 See_Comment [Auto mated = 9757527585) message] The s ystem which generated this result transmitted reference range : 10*3/?L. The reference range was not used to interpret this result as normal/abnormal . GRAN MAT (NEUT) % 70.5 % (test code = 770-8) IMM GRAN % (test code 0.70 % = 9391905448) LYMPH % (test code = 19.0 % 736-9) MONO % (test code = 8.8 % 5905-5) EOS % (test code = 0.7 % 713-8) BASO % (test code = 0.3 % 706-2) GRAN MAT x10^3(ANC) 4.96 10*3/uL 1.88-7.09 (test code = 4488784426) IMM GRAN x10^3 (test 0.05 10*3/uL 0.00-0.06 code = 0851905363) LYMPH x10^3 (test code 1.34 10*3/uL 1.32-3.29 = 731-0) MONO x10^3 (test code 0.62 10*3/uL 0.33-0.92 = 742-7) EOS x10^3 (test code = 0.05 10*3/uL 0.03-0.39 711-2) BASO x10^3 (test code <0.03 0.01-0.07 = 704-7) Lab Interpretation Abnormal (test code = 97623-3) [facility] HospitalLactic Acid Whole [id number] 16:37:28 Test Item Value Reference Range Interpretation Comments LACTIC ACID (test code = 1.74 mmol/L 0.50-2.20 8274902872) Lab Interpretation (test code = Normal 03530-0) [facility]URINALYSIS2021-06-24 03:04:28 Test Item Value Reference Range Interpretation Comments APPEARANCE (test code = Clear Clear 9616108176) COLOR (test code = Colorless Yellow A 5064245680) PH (test code = 4.8-8.0 9195769926) SP GRAVITY (test code = 1.003-1.030 9288444940) GLU U QUAL (test code = Normal Normal 7799954752) BLOOD (test code = 2+ Negative A 7288195350) KETONES (test code = Negative Negative 9098344147) PROTEIN (test code = Negative Negative 2887-8) UROBILIN (test code = Normal Normal 6951052446) BILIRUBIN (test code = Negative Negative 4609927443) NITRITE (test code = Negative Negative 5432931360) LEUK WILBERT (test code = Negative Negative 9820539118) RBC/HPF (test code = See_Comment [Autom ated message] 5403234779) The system NComputing generated this result transmit con reference range : 0 - 3 HPF. The refe rence range was not u sed to interpret th is result as normal/abnormal . WBC/HPF (test code = <1 See_Comment [Autom ated message] 4243150825) The system NComputing generated this result transmit con reference range : 0 - 5 HPF. The refe rence range was not u sed to interpret th is result as normal/abnormal . BACTERIA (test code = Few Negative A 6502112420) SQ EPITH (test code = HPF 6264841021) Lab Interpretation (test Abnormal code = 83835-3) [facility]PO[facility] [id number] 02:44:00 Test Item Value Reference Range Interpretation Comments POCT PREG (test code = 1605) negative On board controls acceptable with present C Line (test code = 3574) POCT PREG LOT # (test code = 3575) [id number] POCT PREG TEST DATE (test 2022-03-08 code = 3576) Lab Interpretation (test code = Normal 05885-7) [facility] HospitalCOVID-19 (ID NOW RAPID TESTING)2020-08-30 02:29:07 Test Item Value Reference Range Interpretation Comments SARS-CoV-2 Rapid ID NOW Positive Not Detected A (test code = 29583-3) MARCELLE (test code = MARCELLE) ID NOW COVID-19 Assay is an isothermal nucleic acid amplification test intended for the qualitative detection of nucleic acid from SARS-CoV-2 viral RNA in nasopharyngeal (TURNAROUND PLANNER) specimens. It is used under Emergency Use [...] indicated. Lab Interpretation Abnormal (test code = 08659-0) [facility] [id number] 16:04:00 Test Item Value Reference Range Interpretation [...] code = 3257) Trace Negative - Negative [facility]PO[facility] URINALYS[facility] W/O SPECIFIC [id number] 16:04:00 Test Item Value Reference Range Interpretation [...] code = 3257) Trace Negative - Negative [facility]IN[facility] W/O SPECIFIC [id number] 16:04:00 Test Item Value Reference Range Interpretation [...] code = 3257) Trace Negative - Negative [facility]IS2021-03-08 02:02:48 Test Item Value Reference Range Interpretation Comments APPEARANCE (test code = Cloudy Clear A 2512327590) COLOR (test code = Yellow Yellow 1247453011) PH (test code = 4.8-8.0 0753184930) SP GRAVITY (test code = 1.003-1.030 2862350380) GLU U QUAL (test code = Normal Normal 9126978651) BLOOD (test code = 2+ Negative A 1221001553) KETONES (test code = Negative Negative 0526247485) PROTEIN (test code = 100 mg/dL Negative A 2887-8) UROBILIN (test code = Normal Normal 3107973003) BILIRUBIN (test code = Negative Negative 1714526769) NITRITE (test code = Negative Negative 2580087825) LEUK WILBERT (test code = 500/uL Negative A 1967249723) RBC/HPF (test code = See_Comment H [Autom ated message] 0306857964) The system NComputing generated this result transmit con reference range : 0 - 3 HPF. The refe rence range was not u sed to interpret th is result as normal/abnormal . WBC/HPF (test code = >182 See_Comment H [Autom ated message] 5860442023) The system NComputing generated this result transmit con reference range : 0 - 5 HPF. The refe rence range was not u sed to interpret th is result as normal/abnormal . BACTERIA (test code = Few Negative A 4792195698) MUCOUS (test code = Slight Negative LPF A 8175891987) SQ EPITH (test code = HPF 5614216743) WBC CLUMPS (test code = See_Comment H [Au tomated message] 4705857578) The system NComputing generated this result transmit con reference range : <=1 HPF. The refere nce range was not u sed to interpret th is result as normal/abnormal . Lab Interpretation (test Abnormal code = 24147-1) [facility]Complete Metabolic [id number] 02:00:26 Test Item Value Reference Range Interpretation Comments NA (test code = 139 mmol/L 135-145 8374807819) K (test code = 4.1 mmol/L 3.5-5.0 1056433897) CL (test code = 99 mmol/L 98-108 2667752602) CO2 TOTAL (test code = 32 mmol/L 23-31 H 4760351248) AGAP (test code = 2-16 7092801453) BUN (test code = 4 mg/dL 7-23 L 6359630139) GLUCOSE (test code = 102 mg/dL 70-110 2330221107) CREATININE (test code = 0.63 mg/dL 0.50-1.04 3397483260) TOTAL BILI (test code = 0.8 mg/dL 0.1-1.0 4813973277) CALCIUM (test code = 10.2 mg/dL 8.6-10.6 6548454493) T PROTEIN (test code = 8.3 g/dL 6.3-8.2 H 8688386664) ALBUMIN (test code = 5.3 g/dL 3.5-5.0 H 6101213091) ALK PHOS (test code = 80 U/L 34-122 2254707328) ALTv (test code = 13 U/L 5-35 1742-6) AST(SGOT) (test code = 24 U/L 13-40 4703971529) eGFR Calculation mL/min/1.73m2 (Non-) (test code = 2685792735) eGFR Calculation mL/min/1.73m2 () (test code = 2707441485) MARCELLE (test code = MARCELLE) Association of [...] tests). Lab Interpretation Abnormal (test code = 70292-0) [facility] with [id number] 01:59:51 Test Item Value Reference Range Interpretation Comments WBC (test code = See_Comment H [Automated 4946-2) message] The system which generated this result transmit con reference range : 4.30 - 11.10 10*3/?L. The reference range was not used to interpret this result as normal/abnormal . RBC (test code = See_Comment [Automated 646-5) message] The system which generated this result [...] RDW-SD (test code = 40.9 fL 39.0-49.9 64050-6) RDW-CV (test code = 12.4 % 12.0-15.5 788-0) PLT (test code = See_Comment [Automated 777-3) message] The system which generated this result transmit con reference range : 166 - 358 10*3/ ?L. The reference range was not u sed to interpret th is result as normal/abnormal . MPV (test code = 10.1 fL 9.5-12.9 64671-3) NRBC/100 WBC (test See_Comment [Automat ed code = 0632983432) message] The system which generated this result transmit con reference range : 0.0 - 10.0 /100 WBCs. The reference range was not used to interpret this result as normal/abnormal . NRBC x10^3 (test code <0.01 See_Comment [Auto mated = 9411665166) message] The system which generated this result transmit con reference range : 10*3/?L. The reference range was not used to interpret this result as normal/abnormal . GRAN MAT (NEUT) % 78.8 % (test code = 770-8) IMM GRAN % (test code 1.00 % = 5236942353) LYMPH % (test code = 12.8 % 736-9) MONO % (test code = 6.5 % 5905-5) EOS % (test code = 0.5 % 713-8) BASO % (test code = 0.4 % 706-2) GRAN MAT x10^3(ANC) 15.38 10*3/uL 1.88-7.09 H (test code = 4797998153) IMM GRAN x10^3 (test 0.19 10*3/uL 0.00-0.06 H code = 9966372044) LYMPH x10^3 (test code 2.49 10*3/uL 1.32-3.29 = 731-0) MONO x10^3 (test code 1.26 10*3/uL 0.33-0.92 H = 742-7) EOS x10^3 (test code = 0.09 10*3/uL 0.03-0.39 711-2) BASO x10^3 (test code 0.07 10*3/uL 0.01-0.07 = 704-7) Lab Interpretation Abnormal (test code = 08854-4) [facility] [id number] 01:08:00 Test Item Value Reference Range Interpretation Comments POCT PREG (test code = 1605) negative On board controls acceptable with positive C Line (test code = 3574) POCT PREG LOT # (test code = 3575) [id number] POCT PREG TEST DATE (test 12/06/2021 code = 3576) Lab Interpretation (test code = Normal 84334-1) [facility] URINALYSIS W/O SPECIFIC [id number] 19:59:00 Test Item Value Reference Range Interpretation [...] code = 3257) negative Negative - Negative [facility] URINALYSIS W/O SPECIFIC [id number] 19:59:00 Test Item Value Reference Range Interpretation [...] code = 3257) negative Negative - Negative [facility] [id number] 19:41:00 Test Item Value Reference Range Interpretation Comments POCT PREG (test code = 1605) Negative On board controls acceptable with C Yes Line (test code = 3574) POCT PREG LOT # (test code = 3575) POCT PREG TEST DATE (test code = 3576) [facility] [id number] 19:41:00 Test Item Value Reference Range Interpretation Comments POCT PREG (test code = 1605) Negative On board controls acceptable with C Yes Line (test code = 3574) POCT PREG LOT # (test code = 3575) POCT PREG TEST DATE (test code = 3576) [facility] HospitalXR CHEST 1 [id number] 15:44:00HISTORY: Cough. TECHNIQUE: Portable AP erect view of the chest is obtained. Comparison madewith 07/28/2019 study. FINDINGS: No acute pneumonia. No pneumothorax or pleural effusion orpulmonary congestiondetected. Cardiac size is within normal limits. Smallcalcified granulomas are suspected in left middle and lower lung zones. CONCLUSIONS: No signs of acute cardiopulmonary disease.[facility] [[email or web address]], Radiant ResultsInft User - 08/18/2019 10:45 AM CDTHISTORY: Cough.TECHNIQUE: Portable AP erect view of the chest is obtained. Comparison madewith 07/28/2019 study.FINDINGS: No acute pneumonia. No pneumothorax or pleural effusion orpulmonary congestion detected. Cardiac size is within normal limits. Smallcalcified granulomas are suspected in left middle and lower lung zones.CONCLUSIONS: No signs of acute cardiopulmonary disease.[facility] HospitalCBC WITH [id number] 15:25:00 Test Item Value Reference Range Interpretation Comments WBC (test code = See_Comment H [Automated 1948-2) message] The sy stem which generated this result transmitted reference range : 4.30 - 11.10 10*3/?L. The reference range was not used to interpret this result as normal/abnormal . RBC (test code = See_Comment [Automated 629-8) message] The sy stem which generated this [...] RDW-SD (test code = 42.2 fL 39-49.9 99885-2) RDW-CV (test code = 13.1 % 12-15.5 788-0) PLT (test code = See_Comment H [Automated 777-3) message] The sy stem which generated this result transmitted reference range : 166 - 358 10*3/ ?L. The reference r david was not used to interpret this result as normal/abnormal . MPV (test code = 10.3 fL 9.5-12.9 05696-3) NRBC/100 WBC (test See_Comment [Automat ed code = 1283136876) message] The system which generated this result transmitted reference range : 0.0 - 10.0 /100 WBCs. The refer ence range was not u sed to interpret th is result as normal/abnormal . NRBC x10^3 (test code <0.01 See_Comment [Auto mated = 5747298095) message] The s ystem which generated this result transmitted reference range : 10*3/?L. The reference range was not used to interpret this result as normal/abnormal . GRAN MAT (NEUT) % 57.0 % (test code = 770-8) IMM GRAN % (test code 0.90 % = 6330875714) LYMPH % (test code = 31.7 % 736-9) MONO % (test code = 8.1 % 5905-5) EOS % (test code = 1.8 % 713-8) BASO % (test code = 0.5 % 706-2) GRAN MAT x10^3(ANC) 7.49 10*3/uL 1.88-7.09 H (test code = 7516602202) IMM GRAN x10^3 (test 0.12 10*3/uL 0-0.06 H code = 2863903352) LYMPH x10^3 (test code 4.16 10*3/uL 1.32-3.29 H = 731-0) MONO x10^3 (test code 1.07 10*3/uL 0.33-0.92 H = 742-7) EOS x10^3 (test code = 0.23 10*3/uL 0.03-0.39 711-2) BASO x10^3 (test code 0.06 10*3/uL 0.01-0.07 = 704-7) Lab Interpretation Abnormal (test code = 00320-0) [facility] HospitalPREGNANCY TEST, [id number] 14:52:00 Test Item Value Reference Range Interpretation Comments PREG SERUM (test code Negative = 3104324442) MARCELLE (test code = MARCELLE) Less than 10 IU/L. ?If low titer or ectopic is suspected, resubmit specimen in 48-72 hours. [facility] Metabolic Panel (NA, K, CL, CO2, GLUCOSE, BUN, CREATININE, CA)2019-08-18 14:48:00 Test Item Value Reference Range Interpretation Comments NA (test code = 141 mmol/L 135-145 7264965143) K (test code = 3.9 mmol/L 3.5-5 6289329294) CL (test code = 111 mmol/L 98-108 H 1747863123) CO2 TOTAL (test code = 21 mmol/L 23-31 L 9004106883) AGAP (test code = 2-16 6634839724) BUN (test code = 14 mg/dL 7-23 1670322401) GLUCOSE (test code = 92 mg/dL 70-110 8392804459) CREATININE (test code = 0.80 mg/dL 0.5-1.04 8823030898) CALCIUM (test code = 9.3 mg/dL 8.6-10.6 3926015690) eGFR Calculation mL/min/1.73m2 (Non-) (test code = 2398227453) eGFR Calculation mL/min/1.73m2 () (test code = 6744811290) MARCELLE (test code = MARCELLE) Association of [...] tests). Lab Interpretation Abnormal (test code = 07766-4) [facility] HospitalHepatic Function Panel (ALB, T.PRO, BILI T, BU/BC, ALT, AST, ALK PHOS)2019-08-18 14:48:00 Test Item Value Reference Range Interpretation Comments TOTAL BILI (test code = 4774106729) 0.4 mg/dL 0.1-1.1 BILI UNCON (test code = 5955069079) 0.4 mg/dL 0.1-1.1 BILI CONJ (test code = 9965810440) 0.0 mg/dL 0-0.3 T PROTEIN (test code = 1085700406) 8.1 g/dL 6.3-8.2 ALBUMIN (test code = 6787469862) 4.7 g/dL 3.5-5 ALK PHOS (test code = 9051701518) 74 U/L 34-122 ALTv (test code = 1742-6) 17 U/L 5-35 AST(SGOT) (test code = 1454658980) 27 U/L 13-40 Lab Interpretation (test code = Normal 06645-3) [facility] HospitalaPTT2020-06-11 14:46:00 Test Item Value Reference Range Interpretation Comments APTT Patient (test See_Comment H [Automat ed code = 3173-2) message] The system which generated this result transmitted reference range : 23 - 38 Seconds . The reference range was not used to interpr et this result as normal/abnormal . MARCELLE (test code = MARCELLE) The [facility] patient population mean normal value for aPTT is 30 seconds. Lab Interpretation Abnormal (test code = 52880-1) [facility]RAAD[facility] S[facility] FOR GROUP [id number] 14:46:00 Test Item Value Reference Range Interpretation Comments Streptococcus pyogenes (group A) Negative Negative antigen (test code = 66836-7) Lab Interpretation (test code = Normal 77765-9) [facility] HospitalProthrombin Time (PT) / [id number] 14:43:00 Test Item Value Reference Range Interpretation [...] tions. Lab Interpretation (test Normal code = 93724-3) [facility] HospitalCOVID-19 (ID NOW RAPID TESTING)2019-08-18 14:43:00 Test Item Value Reference Range Interpretation Comments SARS-CoV-2 Rapid ID NOW Not Detected Not Detected (test code = 21184-3) MARCELLE (test code = MARCELLE) ID NOW COVID-19 Assay is an isothermal nucleic acid amplification test intended for the qualitative detection of nucleic acid from SARS-CoV-2 viral RNA in nasopharyngeal (TURNAROUND PLANNER) specimens. It is used under Emergency Use [...] indicated. Lab Interpretation Normal (test code = 69623-4) [facility]. METABOLIC PANEL (95254)2019-07-29 03:00:00 Test Item Value Reference Range Interpretation Comments NA (test code = 141 mmol/L 135-145 9516498823) K (test code = 3.8 mmol/L 3.5-5 8747840353) CL (test code = 105 mmol/L 98-108 1239507391) CO2 TOTAL (test code = 27 mmol/L 23-31 1481177187) AGAP (test code = 2-16 0974673867) BUN (test code = 11 mg/dL 7-23 8860195804) GLUCOSE (test code = 91 mg/dL 70-110 4040944586) CREATININE (test code 0.58 mg/dL 0.5-1.04 = 1855498701) TOTAL BILI (test code 0.4 mg/dL 0.1-1.1 = 7245229104) CALCIUM (test code = 9.9 mg/dL 8.6-10.6 0840032515) T PROTEIN (test code = 7.3 g/dL 6.3-8.2 0416537267) ALBUMIN (test code = 4.5 g/dL 3.5-5 5525300721) ALK PHOS (test code = 53 U/L 34-122 6795429717) ALTv (test code = 12 U/L 5-35 1742-6) AST(SGOT) (test code = 27 U/L 13-40 6934749904) eGFR Calculation mL/min/1.73m2 (Non-) (test code = 0669002004) eGFR Calculation mL/min/1.73m2 () (test code = 0293454581) MARCELLE (test code = MARCELLE) Association of [...] or urine or abnormalities in imaging tests). [facility] HospitalDESTINI [id number] 02:43:00 Test Item Value Reference Range Interpretation Comments TROPONIN I (test <0.012 See_Comment [Automated code = 7528332484) message] The system which generated this result [...] ? Lab Interpretation Normal (test code = 51525-7) [id number] 02:32:00 Test Item Value Reference Interpretation Comments Range D-DIMER (test code = See_Comment H [Autom ated 6225054378) message] The system which generated this result [...] diagnosis. Lab Interpretation Abnormal (test code = 95860-0) [facility] WITH [id number] 02:21:00 Test Item Value Reference Range Interpretation Comments WBC (test code = See_Comment H [Automated 5590-2) message] The sy stem which generated this result transmitted reference range : 4.30 - 11.10 10*3/?L. The reference range was not used to interpret this result as normal/abnormal . RBC (test code = See_Comment [Automated 669-8) message] The sy stem which generated this [...] RDW-SD (test code = 40.0 fL 39-49.9 00425-9) RDW-CV (test code = 12.5 % 12-15.5 788-0) PLT (test code = See_Comment [Automated 777-3) message] The sy stem which generated this result transmitted reference range : 166 - 358 10*3/ ?L. The reference r david was not used to interpret this result as normal/abnormal . MPV (test code = 10.4 fL 9.5-12.9 37087-2) NRBC/100 WBC (test See_Comment [Automat ed code = 6560469928) message] The system which generated this result transmitted reference range : 0.0 - 10.0 /100 WBCs. The refer ence range was not u sed to interpret th is result as normal/abnormal . NRBC x10^3 (test code <0.01 See_Comment [Auto mated = 7537082459) message] The s ystem which generated this result transmitted reference range : 10*3/?L. The reference range was not used to interpret this result as normal/abnormal . GRAN MAT (NEUT) % 58.3 % (test code = 770-8) IMM GRAN % (test code 0.80 % = 9628888809) LYMPH % (test code = 32.1 % 736-9) MONO % (test code = 6.7 % 5905-5) EOS % (test code = 1.7 % 713-8) BASO % (test code = 0.4 % 706-2) GRAN MAT x10^3(ANC) 6.48 10*3/uL 1.88-7.09 (test code = 1410926809) IMM GRAN x10^3 (test 0.09 10*3/uL 0-0.06 H code = 7687084070) LYMPH x10^3 (test code 3.57 10*3/uL 1.32-3.29 H = 731-0) MONO x10^3 (test code 0.75 10*3/uL 0.33-0.92 = 742-7) EOS x10^3 (test code = 0.19 10*3/uL 0.03-0.39 711-2) BASO x10^3 (test code 0.04 10*3/uL 0.01-0.07 = 704-7) Lab Interpretation Abnormal (test code = 76553-6) [facility] 2 [id number] 02:02:09 No acute cardiopulmonary process. Preliminary Report Dictated by Resident: Carlos Guzman MD., have reviewed this study and agree with the abovereport.EXAM: XR CHEST 2 VW CLINICAL INDICATION: cough and SOB COMPARISON: 09/21/2017 TECHNIQUE: Frontal and lateral views of the chest wereobtained. FINDINGS: No focal consolidation, pleural effusion, or pneumothorax. The cardiac silhouette is normal in size. No acute osseous abnormality. [facility] [[email or web address]], Radiant Results Inft User - 07/28/2019 9:03 [...] reviewed this study and agree with the abovereport.[facility] COVID-19 (ID NOW RAPID TESTING)2019-07-28 23:48:00 Test Item Value Reference Range Interpretation Comments SARS-CoV-2 Rapid ID NOW Not Detected Not Detected (test code = 09966-1) MARCELLE (test code = MARCELLE) ID NOW COVID-19 Assay is an isothermal nucleic acid amplification test intended for the qualitative detection of nucleic acid from SARS-CoV-2 viral RNA in nasopharyngeal (TURNAROUND PLANNER) specimens. It is used under Emergency Use [...] indicated. Lab Interpretation Normal (test code = 24668-7) [facility] [id number] 23:19:00 Test Item Value Reference Range Interpretation Comments POCT PREG (test code = 1605) Negative On board controls acceptable with Present C Line (test code = 3574) POCT PREG LOT # (test code = 3575) [id number] POCT PREG TEST DATE (test 10/06/2020 code = 3576) Lab Interpretation (test code = Normal 70178-2) [facility] ABDOMEN PELVIS WO [id number] 01:14:52 No acute intra-abdominal process. EXAM: CT [...] lytic or sclerotic bony lesions.IMPRESSIONNo acute intra-abdominal process.[facility] Met[facility] Panel (NA, K, CL, CO2, GLUCOSE, BUN, CREATININE, CA)2019-06-27 00:52:00 Test Item Value Reference Range Interpretation Comments NA (test code = 139 mmol/L 135-145 2568941742) K (test code = 4.3 mmol/L 3.5-5 1871756613) CL (test code = 103 mmol/L 98-108 1089440303) CO2 TOTAL (test code = 26 mmol/L 23-31 8038424766) AGAP (test code = 2-16 4091153451) BUN (test code = 9 mg/dL 7-23 9617446408) GLUCOSE (test code = 90 mg/dL 70-110 9212547995) CREATININE (test code 0.56 mg/dL 0.5-1.04 = 5481462779) CALCIUM (test code = 9.4 mg/dL 8.6-10.6 3509722089) eGFR Calculation mL/min/1.73m2 (Non-) (test code = 3112709256) eGFR Calculation mL/min/1.73m2 () (test code = 4745388110) MARCELLE (test code = MARCELLE) Association of [...] or urine or abnormalities in imaging tests). [facility] [id number] 00:46:00 Test Item Value Reference Range Interpretation Comments APPEARANCE (test code = Hazy Clear A 8268239862) COLOR (test code = Yellow Yellow 2997880267) PH (test code = 4.8-8.0 4461429519) SP GRAVITY (test code = 1.003-1.030 7042218157) GLU U QUAL (test code = Normal Normal 0638593645) BLOOD (test code = Negative Negative Interfere nce from 6756559561) ascorbic acid m ay cause false neg ative results. KETONES (test code = Negative Negative 4958438381) PROTEIN (test code = Negative Negative 2887-8) UROBILIN (test code = Normal Normal 5474514023) BILIRUBIN (test code = Negative Negative 6354193919) NITRITE (test code = Negative Negative 1211804838) LEUK WILBERT (test code = 25/uL Negative A 3258002671) RBC/HPF (test code = See_Comment [Autom ated message] 0215778503) The system [employer] generated this result transmitted ref erence range: 0 - 3 HP F. The reference range was not used to int erpret this result as normal/abnormal . WBC/HPF (test code = See_Comment H [Autom ated message] 4323193231) The system [employer] generated this result transmitted ref erence range: 0 - 5 HP F. The reference range was not used to int erpret this result as normal/abnormal . BACTERIA (test code = Few Negative A 6415703719) MUCOUS (test code = Slight Negative LPF A 4496521822) SQ EPITH (test code = See_Comment H [Auto mated message] 3464030282) The system [employer] generated this result transmitted ref erence range: <=2 HPF. The reference range was not used to int erpret this result as normal/abnormal . ASCORBIC ACID (test 20 mg/dL+ code = 4164267109) Lab Interpretation Abnormal (test code = 65467-1) [facility] WITH [id number] 00:43:00 Test Item Value Reference Range Interpretation Comments WBC (test code = See_Comment [Automated 2390-2) message] The sy stem which generated this result transmitted reference range : 4.30 - 11.10 10*3/?L. The reference range was not used to interpret this result as normal/abnormal . RBC (test code = See_Comment [Automated 289-8) message] The sy stem which generated this [...] (test code = 38.9 fL 39-49.9 L 60176-3) RDW-CV (test code = 12.1 % 12-15.5 788-0) PLT (test code = See_Comment [Automated 777-3) message] The sy stem which generated this result transmitted reference range : 166 - 358 10*3/ ?L. The reference r david was not used to interpret this result as normal/abnormal . MPV (test code = 10.1 fL 9.5-12.9 79391-6) NRBC/100 WBC (test See_Comment [Automat ed code = 1895264835) message] The system which generated this result transmitted reference range : 0.0 - 10.0 /100 WBCs. The refer ence range was not u sed to interpret th is result as normal/abnormal . NRBC x10^3 (test code <0.01 See_Comment [Auto mated = 6813586201) message] The s ystem which generated this result transmitted reference range : 10*3/?L. The reference range was not used to interpret this result as normal/abnormal . GRAN MAT (NEUT) % 62.9 % (test code = 770-8) IMM GRAN % (test code 0.50 % = 2969767111) LYMPH % (test code = 28.0 % 736-9) MONO % (test code = 7.0 % 5905-5) EOS % (test code = 1.1 % 713-8) BASO % (test code = 0.5 % 706-2) GRAN MAT x10^3(ANC) 5.81 10*3/uL 1.88-7.09 (test code = 2484560280) IMM GRAN x10^3 (test 0.05 10*3/uL 0-0.06 code = 5818893260) LYMPH x10^3 (test code 2.59 10*3/uL 1.32-3.29 = 731-0) MONO x10^3 (test code 0.65 10*3/uL 0.33-0.92 = 742-7) EOS x10^3 (test code = 0.10 10*3/uL 0.03-0.39 711-2) BASO x10^3 (test code 0.05 10*3/uL 0.01-0.07 = 704-7) Lab Interpretation Abnormal (test code = 98245-1) [facility] Test, [id number] 00:37:00 Test Item Value Reference Range Interpretation Comments POCT PREG (test code = 1605) Negative On board controls acceptable with Present C Line (test code = 3574) POCT PREG LOT # (test code = 3575) [id number] POCT PREG TEST DATE (test 11/06/2020 code = 3576) Lab Interpretation (test code = Normal 97154-0) [facility] URINALYSIS W/O SPECIFIC [id number] 18:32:00 Test Item Value Reference Range Interpretation [...] = 3257) about 250 Negative - Negative [facility] URINALYSIS W/O SPECIFIC [id number] 18:32:00 Test Item Value Reference Range Interpretation [...] = 3257) about 250 Negative - Negative [facility] HospitalUrinalysis2020-02-12 20:00:00 Test Item Value Reference Range Interpretation Comments APPEARANCE (test code = Clear Clear 1542120957) COLOR (test code = Straw Yellow A 7998317582) PH (test code = 4.8-8.0 2620523795) SP GRAVITY (test code = 1.003-1.030 5544904348) GLU U QUAL (test code = Normal Normal 4482679500) BLOOD (test code = Negative Negative 1017548314) KETONES (test code = Negative Negative 8324435102) PROTEIN (test code = Negative Negative 2887-8) UROBILIN (test code = Normal Normal 0953266449) BILIRUBIN (test code = Negative Negative 4834273204) NITRITE (test code = Negative Negative 3718268278) LEUK WILBERT (test code = Negative Negative 2240460953) RBC/HPF (test code = See_Comment [Autom ated message] 2331357205) The system [employer]Comput[employer] generated this result transmitted ref erence range: 0 - 3 HP F. The reference range was not used to int erpret this result as normal/abnormal . WBC/HPF (test code = <1 See_Comment [Autom ated message] 5698243734) The system [employer] generated this result transmitted ref erence range: 0 - 5 HP F. The reference range was not used to int erpret this result as normal/abnormal . BACTERIA (test code = Negative Negative 2494088628) SQ EPITH (test code = HPF 0721152358) Lab Interpretation (test Abnormal code = 20958-1) [facility] / [facility] - DRUG SCREEN [id number] 19:43:00 Test Item Value Reference Range Interpretation Comments BENZO U (test code = Negative Negative 5604239791) VALERIE U (test code = Negative Negative 8836160751) AMPHET (test code = Negative Negative 3597092674) THC (test code = Negative Negative 6134069500) METHADONE (test code = Negative Negative 6183617882) Meth U (test code = Negative Negative 3870529517) OPIATES (test code = Negative Negative 5263748504) Cocaine Metabolite (test Negative Negative code = 1400077889) PROPOXY (test code = Negative Negative 3908866341) Tric U (test code = Negative Negative 0704273116) PCP (test code = Negative Negative 2269977287) OXYCOD (test code = Negative Negative 4932484482) MARCELLE (test code = MARCELLE) Urine Drug [...] testing). Lab Interpretation (test Normal code = 99816-5) [facility] [id number] 19:21:00 Test Item Value Reference Range Interpretation Comments POCT PREG (test code = 1605) negative On board controls acceptable with present C Line (test code = 3574) POCT PREG LOT # (test code = [id number]) POCT PREG TEST DATE (test code = 3576) Lab Interpretation (test code = Normal 76988-7) [facility] Metabolic [id number] 18:07:00 Test Item Value Reference Range Interpretation Comments NA (test code = 141 mmol/L 135-145 9870264713) K (test code = 4.3 mmol/L 3.5-5 2906411487) CL (test code = 104 mmol/L 98-108 1073304601) CO2 TOTAL (test code = 25 mmol/L 23-31 5712073799) AGAP (test code = 2-16 5992315365) BUN (test code = 13 mg/dL 7-23 4156837176) GLUCOSE (test code = 95 mg/dL 70-110 9948139757) CREATININE (test code = 0.68 mg/dL 0.5-1.04 4751880244) TOTAL BILI (test code = 0.3 mg/dL 0.1-1.0 6135265302) CALCIUM (test code = 10.2 mg/dL 8.6-10.6 6808537985) T PROTEIN (test code = 7.6 g/dL 6.3-8.2 9368248553) ALBUMIN (test code = 5.1 g/dL 3.5-5 H 3237604172) ALK PHOS (test code = 79 U/L 34-122 7300190638) ALTv (test code = 13 U/L 5-35 1742-6) AST(SGOT) (test code = 21 U/L 13-40 9993884283) eGFR Calculation mL/min/1.73m2 (Non-) (test code = 8813994007) eGFR Calculation mL/min/1.73m2 () (test code = 2610552700) MARCELLE (test code = MARCELLE) Association of [...] tests). Lab Interpretation Abnormal (test code = 13592-7) [facility] HospitalLip[facility], [id number] 18:07:00 Test Item Value Reference Range Interpretation Comments LIPASE (test code = 8065520783) 44 U/L 0-220 Lab Interpretation (test code = Normal 91396-9) [facility] WITH [id number] 17:57:00 Test Item Value Reference Range Interpretation Comments WBC (test code = See_Comment [Automated message] 6690-2) The system [employer]Comput[employer] generated this result transmitted ref erence range: 4.30 - 1 1.10 10*3/?L. The re ference range was not u sed to interpret this result as normal/abnor mal. RBC (test code = See_Comment [Automated message] 789-8) The system [employer] generated this result transmitted ref erence range: [...] RDW-SD (test code 40.2 fL 39-49.9 = 42064-7) RDW-CV (test code 12.4 % 12-15.5 = 788-0) PLT (test code = See_Comment [Automated message] 777-3) The system [employer]Comput[employer] generated this result transmitted ref erence range: 166 - 35 8 10*3/?L. The re ference range was not u sed to interpret this result as normal/abnor mal. MPV (test code = 10.4 fL 9.5-12.9 92533-9) NRBC/100 WBC (test See_Comment [Automat ed message] code = 8177959530) The syste [employer] which generated this result transmitted ref erence range: 0.0 - 10 .0 /100 WBCs. The refer ence range was not u sed to interpret this result as normal/abnor mal. NRBC x10^3 (test <0.01 See_Comment [Automated message] code = 0666049029) The syste m which generated this result transmitted ref erence range: 10*3/?L. The reference range was not used to interpr et this result as normal/abnormal . GRAN MAT (NEUT) % 62.6 % (test code = 770-8) IMM GRAN % (test 0.60 % code = 0375562204) LYMPH % (test code 27.3 % = 736-9) MONO % (test code 7.2 % = 5905-5) EOS % (test code = 1.9 % 713-8) BASO % (test code 0.4 % = 706-2) GRAN MAT 5.98 10*3/uL 1.88-7.09 x10^3(ANC) (test code = 7377583202) IMM GRAN x10^3 0.06 10*3/uL 0-0.06 (test code = 3759020099) LYMPH x10^3 (test 2.61 10*3/uL 1.32-3.29 code = 731-0) MONO x10^3 (test 0.69 10*3/uL 0.33-0.92 code = 742-7) EOS x10^3 (test 0.18 10*3/uL 0.03-0.39 code = 711-2) BASO x10^3 (test 0.04 10*3/uL 0.01-0.07 code = 704-7) [facility] 1/2 AG-AB WITH [id number] 08:33:00 Test Item Value Reference Range Interpretation Comments HIV Negative Negative Semi-quantitative (test code = 43450-7) MARCELLE (test code = Non-reactive for HIV-1 MARCELLE) antigen and HIV-1/HIV-2 antibodies. ?No laboratory evidence of HIV infection. ?Repeat in 2-4 weeks if acute HIV infection is suspected. [facility] 1/2 AG-AB WITH [id number] 08:33:00 Test Item Value Reference Range Interpretation Comments HIV Negative Negative Semi-quantitative (test code = 36266-8) MARCELLE (test code = Non-reactive for HIV-1 MARCELLE) antigen and HIV-1/HIV-2 antibodies. ?No laboratory evidence of HIV infection. ?Repeat in 2-4 weeks if acute HIV infection is suspected. [facility]
[2021-02-12] MEDS ORDERED: LORazepam 2 MG/ML VIAL ONE (22:54)
--- NOTE | 2021-02-13 02:59 | ER ---
Nurse's Notes [facility] Name: Mile Wang Age: 26 yrs Sex: Female : 1995 Arrival Date: 02/12/2021 Time: 22:23 Bed 9 Private MD: Diagnosis: Other seizures Presentation: 02/12 22:33 Chief complaint: Friend and/or Co-Worker states: seizure. Ebola Screen: No symptoms or da3 risks identified at this time. Risk Assessment: Do you want to hurt yourself or someone else? Patient reports no desire to harm self or others. 22:33 Method Of Arrival: Other da3 22:33 Acuity: BAIRON 3 da3 Triage Assessment: 22:34 General: Appears uncomfortable, Behavior is agitated. 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 - Social history:: Smoking status: unknown. Screenin:00 Abuse screen: Denies threats or abuse. Nutritional screening: No deficits noted. bb Tuberculosis screening: No symptoms or risk factors identified. Fall Risk None identified. Assessment: 02/12 22:37 Neuro: Seizure activity noted at this time. as6 22:46 General: Behavior is anxious. Respiratory: Respiratory pattern is regular, symmetrical, as6 hyperventilation. 23:27 Reassessment: pt is AAO x4, anxious, conversational. as6 02/13 01:49 Reassessment: Patient is alert, oriented x 3, equal unlabored respirations, skin bb warm/dry/pink. pt resting quietly. 03:17 Reassessment: Patient is alert, oriented x 3, equal unlabored respirations, skin bb warm/dry/pink. pt ambulating with steady gait. Pt verbalized understanding of and agrees to plan of care discharge instructions given. Vital Signs: 02/12 22:35 BP 136 / 73; Pulse 100; Resp 24; Temp 99.9(TE); Pulse Ox 100% on R/A; da3 02/13 03:02 BP 120 / 53; Pulse 97; Resp 27; Temp 98.6(TE); Pulse Ox 98% on R/A; mw2 ED Course: 02/12 22:23 Patient arrived in ED. tw5 22:33 Triage completed. da3 22:40 Samir Carter MD is Attending Physician. 7 22:52 Natanael Quezada, RN is Primary Nurse. as6 02/13 02:00 Patient has correct armband on for positive identification. Bed in low position. Call bb light in reach. Side rails up X2. 02:00 No provider procedures requiring assistance completed. Patient did not have IV access bb during this emergency room visit. 02:58 Cristian Fam MD is Referral Physician. 7 Administered Medications: 02/12 23:10 Drug: Ativan (LORazepam) 2 mg Route: IM; Site: right ventrogluteal; as6 23:26 CANCELLED (Physician Discretion): Ativan (LORazepam) 1 mg IVP once bb Outcome: 02/13 02:58 Discharge ordered by . [facility] 03:18 Discharged to home ambulatory. bb 03:18 Condition: stable 03:18 Discharge instructions given to patient, Instructed on discharge instructions, follow up and referral plans. Demonstrated understanding of instructions, follow-up care. 03:19 Patient left the ED. bb Signatures: Radha Miller RN RN bb Shena Lennon mw2 Samir Carter MD MD 7 Eddie Middleton, RN RN da3 Earnestine Mcdonald tw5 Natanael Quezada, RN RN as6 Corrections: (The following items were deleted from the chart) 02/12 22:40 22:35 BP 136 / 73; Pulse 100bpm; Resp 24bpm; Pulse Ox 100% RA; da3 da3
--- NOTE | 2021-02-13 02:59 | EDPHYS ---
Physician Documentation [facility] Name: Mile Wang Age: 26 yrs Sex: Female : 1995 Arrival Date: 02/12/2021 Time: 22:23 Bed 9 Private MD: ED Physician Samir Carter HPI: 02/12 23:15 This 26 yrs old Female presents to ER via Other with complaints of Seizure. mh7 23:15 The patient presents with a history of multiple seizures, an unknown number, that last mh7 30 second(s), after having a possible seizure episode, "Eyes rolled back", the episode(s) was witnessed, by co-worker(s). Character of seizure(s): Loss of consciousness: the patient experienced loss of consciousness, brief, Motor activity: generalized, shaking all over, Incontinence: none, Apnea: the patient did not experience apnea, Circulation: the patient did not experience evidence of pulse disturbance, Eye movements: are unknown. Seizure onset: just prior to arrival, today. Context: the seizure(s) was witnessed, by co-worker(s), occurred at work, occurred while the patient was sitting, Contributing factors: unknown. Seizure Hx: Original onset: longstanding, Seizure medications: Lamictal. Associated injury: The patient did not suffer any apparent associated injury. The patient has experienced similar episodes in the past, multiple times, chronically. The patient has been recently seen at the [facility], last week. 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 - Social history:: Smoking status: unknown. ROS: 02/12 23:15 Constitutional: Negative for fever, chills, and weight loss, Eyes: Negative for injury, mh7 pain, redness, and discharge, ENT: Negative for injury, pain, and discharge, Neck: Negative for injury, pain, and swelling, Cardiovascular: Negative for chest pain, palpitations, and edema, Respiratory: Negative for shortness of breath, cough, wheezing, and pleuritic chest pain, Abdomen/GI: Negative for abdominal pain, nausea, vomiting, diarrhea, and constipation, Back: Negative for injury and pain, : Negative for injury, bleeding, discharge, and swelling, MS/Extremity: Negative for injury and deformity, Skin: Negative for injury, rash, and discoloration. Psych: Negative for depression, anxiety, suicide ideation, homicidal ideation, and hallucinations, Allergy/Immunology: Negative for hives, rash, and allergies, Endocrine: Negative for neck swelling, polydipsia, polyuria, polyphagia, and marked weight changes, Hematologic/Lymphatic: Negative for swollen nodes, abnormal bleeding, and unusual bruising. Neuro: Negative for dizziness, headache, hearing loss, loss of consciousness, numbness, speech changes, syncope, near syncope, tingling, tinnitus, tremor, visual changes, weakness. Exam: 23:15 Constitutional: This is a well developed, well nourished patient who is awake, alert, mh7 and in no acute distress. Head/Face: Normocephalic, atraumatic. Eyes: Pupils equal round and reactive to light, extra-ocular motions intact. Lids and lashes normal. Conjunctiva and sclera are non-icteric and not injected. Cornea within normal limits. Periorbital areas with no swelling, redness, or edema. ENT: Nares patent. No nasal discharge, no septal abnormalities noted. Tympanic membranes are normal and external auditory canals are clear. Oropharynx with no redness, swelling, or masses, exudates, or evidence of obstruction, uvula midline. Mucous membranes moist. Neck: Trachea midline, no thyromegaly or masses palpated, and no cervical lymphadenopathy. Supple, full range of motion without nuchal rigidity, or vertebral point tenderness. No Meningismus. Chest/axilla: Normal chest wall appearance and motion. Nontender with no deformity. No lesions are appreciated. Cardiovascular: Regular rate and rhythm with a normal S1 and S2. No gallops, murmurs, or rubs. Normal PMI, no JVD. No pulse deficits. Respiratory: Lungs have equal breath sounds bilaterally, clear to auscultation and percussion. No rales, rhonchi or wheezes noted. No increased work of breathing, no retractions or nasal flaring. Abdomen/GI: Soft, non-tender, with normal bowel sounds. No distension or tympany. No guarding or rebound. No evidence of tenderness throughout. Back: No spinal tenderness. No costovertebral tenderness. Full range of motion. Skin: Warm, dry with normal turgor. Normal color with no rashes, no lesions, and no evidence of cellulitis. MS/ Extremity: Pulses equal, no cyanosis. Neurovascular intact. Full, normal range of motion. Neuro: Awake and alert, GCS 15, oriented to person, place, time, and situation. Cranial nerves II-XII grossly intact. Motor strength 5/5 in all extremities. Sensory grossly intact. Cerebellar exam normal. Normal gait. 23:15 Psych: Behavior/mood is anxious, Affect is animated, Oriented to person, place, time, mh7 Patient has no thoughts/intents to harm self or others. Judgement / Insight is normal. Memory is normal. Delusions/hallucinations are not present. Vital Signs: 22:35 BP 136 / 73; Pulse 100; Resp 24; Temp 99.9(TE); Pulse Ox 100% on R/A; da3 12 03:02 BP 120 / 53; Pulse 97; Resp 27; Temp 98.6(TE); Pulse Ox 98% on R/A; mw2 MDM: 02:57 Differential diagnosis: drug overdose, cardiac arrhythmia, seizure. Data reviewed: [facility] vital signs, nurses notes, old medical records, EKG. Data interpreted: Pulse oximetry: on room air is 100 %. Interpretation: normal. Counseling: I had a detailed discussion with the patient and/or guardian regarding: the historical points, exam findings, and any diagnostic results supporting the discharge/admit diagnosis, the need for outpatient follow up, a neurologist, to return to the emergency department if symptoms worsen or persist or if there are any questions or concerns that arise at home. Response to treatment: the patient's symptoms have resolved after treatment, the patient's blood pressure is in an acceptable range, mental status has returned to baseline, the patient no longer shows bradycardia, the patient is not short of breath, the patient is not tachycardic, the patient's pain is gone, the patient's temperature has normalized. Refusal of service: The patient/guardian displays adequate decision making capability and despite a detailed discussion of alternatives, benefits, risks, and consequences refuses: all lab tests. 02:58 Patient medically screened. [facility] 02/12 22:50 Order name: Acetaminophen [facility] 02/12 22:50 Order name: Basic Metabolic Panel [facility] 02/12 22:50 Order name: EKG; Complete Time: 22:51 [facility] 02/12 22:50 Order name: EKG - Nurse/Tech; Complete Time: 23:45 [facility] Administered Medications: 02/12 23:10 Drug: Ativan (LORazepam) 2 mg Route: IM; Site: right ventrogluteal; as6 23:26 CANCELLED (Physician Discretion): Ativan (LORazepam) 1 mg IVP once bb Disposition Summary: 02/13/21 02:58 Discharge Ordered Location: Home [facility] Problem: an acute exacerbation [facility] Symptoms: have improved [facility] Condition: Stable [facility] Diagnosis - Other seizures [facility] Followup: [facility] - With: Private Physician - When: 1 - 2 days - Reason: Worsening of condition, Recheck today's complaints, Continuance of care, Re-evaluation by your physician Followup: [facility] - With: Cristian Fam MD - When: 1 - 2 days - Reason: Worsening of condition, Recheck today's complaints Discharge Instructions: - Discharge Summary Sheet [facility] - Seizure, Adult, [id number] [facility] Forms: - Medication Reconciliation Form [facility] - Thank You Letter [facility] - Antibiotic Education [facility] - Work release form bb - Prescription Opioid Use [facility] 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 [facility] bb
[2021-02-13 03:39] VITALS: BP 120/53; TEMP 98.6; O2SAT 98
--- NOTE | 2021-02-13 12:03 | EKG ---
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
== END 2021-02-13 03:19 | disposition home or self-care (01) ==
LOC: ER 22:19
DX: G40.89 Other seizures (principal); Z88.1 Allergy status to other antibiotic agents; Z88.5 Allergy status to narcotic agent
CPT/HCPCS: 93005; 96372; 99283

== ENCOUNTER 2021-02-16 06:01 | Emergency (ER) | payer OTHER ==
--- OUTSIDE RECORDS SUMMARY | 2021-02-16 06:15 | XMS REPORT | Continuity of Care Document ---
:1995 Author Organization [facility] t Address [address] [place] [address] Care Team Providers Name Role Phone Asked, [...] Number Effective Date Expiration Date Janessa sofia [facility] [id number] 2017 CHOICE MEDICAID 00:00:00 Advance Directives Directive Decision Effective Termination Comments Source Date Date Healthcare Agents on N/A Univ ersity FileNameRelationshipHealthcare [facility] Agent Medical RelationshipCommunication[facility]Mother[facility] Care [phone] (Mobile) Problems Condition Condition Condition Status Onset Resolution Last Treating Co mments Source Name Details Category Date Date Treatment Clinician Date Frequent Frequent Disease Active Unive rs UTI UTI 8-03 ity of 00:: [place] [facility] Seizures Seizures Disease Active Unive rs 7-26 ity of 00:: [place] [facility] UTI UTI Disease Active Univers symptoms symptoms 4-01 ity of 00:00: [facility] Other Other Disease Active Univers general general 4-01 it[place] of [place] and advice and advice 00 Hi dical for [facility] contracept contracept billy billy management management Pain Pain Disease Active Univers pelvic pelvic 4-16 ity of 00:00: [place] [facility] Routine Routine Disease Active Univers 2-25 it y of follow-up follow-up 00:00: [facility] Abnormal Abnormal Disease Active Unive rs EKG EKG 8-02 ity of 00:00: [place] [facility] History of History of Disease Active U nivers seizure seizure 6-13 ity of 00:00: [place] [facility] Over Over Disease Active Univers weight weight [...] ers INE INGREDI 2-12 ity of 00:00: [place] 00 Medical Branch TRAMADOL DRUG Active Other-Cmnt 2019- Univ ers INGREDI 2-12 ity of 00:00: [place] 00 Medical Branch DOXYCYCL Allergy Active High Hives 2019- [facility] TRAMADOL Allergy Active Other 2019-[address] [facility] Social History Social Habit Start Date Stop Date Quantity Comments Source Exposure to Not sure [facility] SARS-CoV-2 (event) Medica l Branch Alcohol intake 2020-11-26 2020-11-26 0 /d [facility] 00:00:00 00:00:00 Medical Branch Tobacco use and 2015-12-21 2015-12-21 Never used [facility] exposure 00:00:00 00:00:00 Medical Branch Sex Assigned At [birth year] [facility] 00:00:00 00:00:00 Medical Branch Smoking Status Start Date Stop Date Source Never smoker [facility] Medications Ordered Filled Start Stop Current Ordering Indication Dosage Frequency Signature Comments Components Source Medication Medication Date Date Medication? Clinician (SIG) Name Name lamoTRIgine 2020-03 Yes [id number] Take 4 by Univers 25 mg 0-22 mouth BID. ity of disintegrat 00:00: [place] ing tablet 00 Medical Branch lamoTRIgine 2020-03 Yes [id number] Take 4 by Univers 25 mg 0-22 mouth BID. ity of disintegrat 00:00: [place] ing tablet 00 Medical Branch lamoTRIgine 0 Yes [id number] Take 3 by Univers 25 mg 9-20 mouth BID ity of disintegrat 00:00: [place] tablet [place] days. When Med ical prescripti Branch on completes. lamoTRIgine 2020- No [id number] Take 3 by Univers 25 mg 9-20 10-22 mouth BID ity of disintegrat 00:00: 00:00 for 14 [place] ing tablet 00 :00 days. When Med ical prescripti Branch on completes. trospium 20 2020-0 Yes [id number] 20mg Take 1 Univers mg tablet 8-26 tablet by ity o f 00:00: mouth 2 [place] 00 (two) Medical times Branch daily. trospium 20 2020-0 Yes [id number] 20mg Take 1 Univers mg tablet 8-26 tablet by ity o f 00:00: mouth 2 [place] 00 (two) Medical times Branch daily. trospium 20 2020-0 Yes [id number] 20mg Take 1 Univers mg tablet 8-26 tablet by ity o f 00:00: mouth 2 [place] 00 (two) Medical times Branch daily. trospium 20 2020-0 Yes [id number] 20mg Take 1 Univers mg tablet 8-26 tablet by ity o f 00:00: mouth 2 [place] (two) Medical times Branch daily. trospium 20 2020-0 Yes [id number] 20mg Take 1 Univers mg tablet 8-26 tablet by ity o f 00:00: mouth 2 (two) Medical times Branch daily. trospium 20 2020-0 Yes [id number] 20mg Take 1 Univers mg tablet 8-26 tablet by ity o f 00:00: mouth 2 (two) Medical times Branch daily. trospium 20 2020-0 Yes [id number] 20mg Take 1 Univers mg tablet 8-26 tablet by ity o f 00:00: mouth 2 (two) Medical times Branch daily. lamoTRIgine 2020-2020- No [id number] 25mg Take 1 Univers 25 mg 8-13 08-21 tablet by ity of tablet 00:00: 04:59 mouth [place] 00 :00 every Medical evening Branch for 7 days. lamoTRIgine 2020-2020- No [id number] 25mg Take 1 Univers 25 mg 8-13 08-21 tablet by ity of tablet 00:00: 04:59 mouth [place] 00 :00 every Medical evening Branch for 7 days. lamoTRIgine 2020-2020- No [id number] 25mg Take 1 Univers 25 mg 8-13 08-21 tablet by ity of tablet 00:00: 04:59 mouth [place] 00 :00 every Medical evening Branch for 7 days. lamoTRIgine 2020-2020- No [id number] 25mg Take 1 Univers 25 mg 8-13 08-21 tablet by ity of tablet 00:00: 04:59 mouth [place] 00 :00 every Medical evening Branch for 7 days. lamoTRIgine 2020- No [id number] 25mg Take 1 Univers 25 mg 8-19 10-21 tablet by ity of tablet 00:00: 04:59 mouth [place] 00 :00 every Medical evening Branch for 7 days. lamoTRIgine 2020- No [id number] 25mg Take 1 Univers 25 mg 8-19 10-21 tablet by ity of tablet 00:00: 04:59 mouth [place] 00 :00 every Medical evening Branch for 7 days. lamoTRIgine 2020- No [id number] 25mg Take 1 Univers 25 mg 8-19 10-21 tablet by ity of tablet 00:00: 04:59 mouth [place] 00 :00 every Medical evening Branch for 7 days. lamoTRIgine 2020- No [id number] 25mg Take 1 Univers 25 mg 8-19 10- tablet by ity of tablet 00:00: 04:59 mouth [place] 00 :00 every Medical evening Branch for 7 days. lamoTRIgine 2020- No [id number] 25mg Take 1 Univers 25 mg 8-19 10- tablet by ity of tablet 00:00: 04:59 mouth [place] 00 :00 every Medical evening Branch for 7 days. lamoTRIgine 2020- No [id number] 25mg Take 1 Univers 25 mg 8-19 10- tablet by ity of tablet 00:00: 04:59 mouth [place] 00 :00 every Medical evening Branch for 7 days. lamoTRIgine 2020- No [id number] 25mg Take 1 Univers 25 mg 8-19 10- tablet by ity of tablet 00:00: 04:59 mouth [place] 00 :00 every Medical evening Branch for 7 days. gadoteridol 2020- No [id number] .2mL/kg 0.2 mL/kg, Univers (PROHANCE-2 10-18 Intravenou i ty of 0 mL) 18:45: 18:46 s, ONCE, 1 [place] injection 00 :00 dose, [facility] Medic al 0.2 mL/kg 10/18/20 at [facility] 1345, Routine metroNIDAZO Yes [id number] 500mg Take 1 Univers LE (FLAGYL) 10-15 tablet by ity of 500 mg 00:00: mouth 2 [place] tablet 00 (two) Medical times [place] daily. metroNIDAZO Yes [id number] 500mg Take 1 Univers LE (FLAGYL) - tablet by ity of 500 mg 00:00: mouth 2 [place] tablet 00 (two) Medical times [place] daily. metroNIDAZO 2020- No [id number] 500mg Take 1 Univers LE (FLAGYL) 10-15- tablet by it y of 500 mg 00:00: 00:00 mouth 2 [place] tablet 00 :00 (two) Medical times [place] daily. metroNIDAZO 2020- No [id number] 500mg Take 1 Univers LE (FLAGYL) 10-15 tablet by it y of 500 mg 00:00: 00:00 mouth 2 [place] tablet 00 :00 ([facility]) Medical times [place] daily. metroNIDAZO 2020- No [id number] 500mg Take 1 Univers LE (FLAGYL) 10-15 tablet by it y of 500 mg 00:00: 00:00 mouth 2 [place] tablet 00 :00 ([facility]) Medical times [place] daily. metroNIDAZO 2020- No [id number] 500mg Take 1 Univers LE (FLAGYL) 10-15 tablet by it y of 500 mg 00:00: 04:59 mouth 2 [place] tablet 00 :00 ([facility]) [facility] daily for 7 days. metroNIDAZO 2020- No [id number] 500mg Take 1 Univers LE (FLAGYL) 10-15- tablet by it y of 500 mg 00:00: 00:00 mouth 2 [place] tablet 00 :00 ([facility]) [facility] times [place] daily for 7 days. azithromyci 2020- No [id number] 1000mg Take 2 Univers n 10-11 08-06 tablets by ity of (ZITHROMAX) 00:00: 04:59 mouth once [place] 500 mg 00 :00 now for 1 Medical tablet dose. Branch LITHIUM Yes Take by Univer s CARBONATE 10-09 mouth. ity of ORAL 21:04: [place] 25 Medical Branch busPIRone Yes 10mg Take [...] CARBONATE 7-30 mouth. ity of ORAL 15:22: [address] busPIRone Yes 10mg Take 10 mg Un aubree 10 mg 7-30 by mouth 2 ity of tablet 15:22: (two) [place] 11 times Medical daily. Branch LITHIUM Yes Take by Univer s CARBONATE 7-30 mouth. ity of ORAL 15:22: [address] busPIRone Yes 10mg Take 10 mg Un a[place] 10 mg 7-30 by mouth 2 ity of tablet 15:22: (two) [place] 11 times Medical daily. Branch LITHIUM Yes Take by Univer s CARBONATE 7-30 mouth. ity of ORAL 15:22: [address] busPIRone Yes 10mg Take 10 mg Un [place] 10 mg 7-30 by mouth 2 ity of tablet 15:22: (two) [place] 11 times Medical daily. Branch lamoTRIgine 2020- No [id number] Take 1 Univers 25 mg 7-30 09-27 [...] daily for 30 days. lamoTRIgine 2020- No [id number] Take 1 Univers 25 mg 7-30 09-27 [...] daily for 30 days. lamoTRIgine 2020- No [id number] Take 1 Univers 25 mg 7-30 09-27 [...] times daily for 30 days. lamoTRIgine No [id number] Take 1 Univers 25 mg 7-30 09-27 [...] times daily for 30 days. lamoTRIgine No [id number] Take 1 Univers 25 mg 7-30 09-27 [...] times daily for 30 days. lamoTRIgine No [id number] Take 1 Univers 25 mg 7-30 09-27 [...] daily for 30 days. lamoTRIgine 2020- No [id number] Take 1 Univers 25 mg 7-30 09-27 [...] times daily for 30 days. lamoTRIgine No [id number] Take 1 Univers 25 mg 7-30 09-27 [...] times daily for 30 days. lamoTRIgine No [id number] Take 1 Univers 25 mg 7-30 09-27 [...] times daily for 30 days. lamoTRIgine No [id number] Take 1 Univers 25 mg 7-30 09-27 [...] times daily for 30 days. lamoTRIgine No [id number] Take 1 Univers 25 mg 7-30 09-27 [...] daily for 30 days. lamoTRIgine 2020- No [id number] Take 1 Univers 25 mg 7-30 09-27 [...] times daily for 30 days. lamoTRIgine No [id number] Take 1 Univers 25 mg 7-30 09-27 [...] daily for 30 days. lamoTRIgine 2020- No [id number] Take 1 Univers 25 mg 10-05 tablet [...] daily for 30 days. lamoTRIgine 2020- No [id number] Take 1 Univers 25 mg 10-05 tablet [...] Q8HPRN, [place] mg 44 Starting Medical Nicolette [place] 10/04/20 at 1633, Until Discontinu ed, Routine, Anxiety LORazepam Yes 2mg 2 mg, Univers (ATIVAN) 10-03 Intramuscu ity o f injection 2 20:47: lar, PRN - [place] mg 05 SEE Medical INSTRUCTIO [place] NS, 2 doses, Starting [facility] 10/03/20 at 1547, Until Discontinu ed, STAT, For seizure lasting two minutes or longer. hydrOXYzine 2020- No 10mg 10 mg, Uni vers (ATARAX) 10-03 Oral, Q8H, ity of tablet 10 20:00: 21:22 First dose [place] mg 00 :10 on Thu [facility] 10/03/20 at Branch 1500, Until Discontinu ed, Routine lithium Yes 600mg 600 mg, Univer s carbonate 10-02 Oral, QAM, ity of CR tablet 14:00: First [place] 600 mg 00 on Thu [facility] 10/02/20 at Branch 0900, Until Discontinu ed busPIRone 2020-0 Yes 10mg 10 mg, Univer s (BUSPAR) 7-27 Oral, BID, ity o f tablet 10 01:00: First dose [place] mg 00 on [facility] 10/01/20 at Branch 1999, Until Discontinu ed, Routine famotidine 2020-0 Yes 20mg 20 mg, Unive rs (PEPCID AC) 7-27 Oral, BID, it y of tablet 20 01:00: First dose [place] mg 00 on [facility] 10/01/20 at Branch 1999, Until Discontinu ed, [...] First dose [place] capsule 900 00 on [facility] Medica l mg 10/01/20 at Branch 1700, Until Discontinu ed, Routine LITHIUM 2020-0 Yes Take by Univer s CARBONATE 7- mouth. ity of ORAL 17:24: [address] busPIRone 2020-0 Yes 10mg Take 10 mg Un a[place] 10 mg - by mouth 2 ity of tablet 17:24: (two) [place] 16 times Medical daily. Branch LITHIUM 0 Yes Take by Univer s CARBONATE 7- mouth. ity of ORAL 17:24: [address] busPIRone 2020-0 Yes 10mg Take 10 mg Un [place] 10 mg 7- by mouth 2 ity of tablet 17:24: (two) [place] 16 times Medical daily. [place] topiramate 2020-0 2020- No 100mg Take 100 U nivers (TOPAMAX) 7-26 07-26 mg by ity of 100 mg 17:24: 00:00 mouth. [place] tablet 16 :00 [facility] topiramate 2020-0 2020- No 100mg Take 100 U nivers (TOPAMAX) 7-26 07-26 mg by ity of 100 mg 17:24: 00:00 mouth. [place] tablet 16 :00 [facility] topiramate 2020- No 100mg Take 100 U nivers (TOPAMAX) 10-01 mg by ity of 100 mg 17:24: 00:00 mouth. [place] tablet 16 :00 [facility] ondansetron Yes 4mg 4 mg, Slow Univers (ZOFRAN 10-01 IV Push, ity of (PF)) 17:23: Q6HPRN, [place] injection 4 23 Starting Medi tressa mg [facility] 10/01/20 at 1223, Until Discontinu ed, Routine, Nausea and Vomiting (N/V) acetaminoph Yes 650mg 650 mg, Un aubree en 10-01 Oral, ity of (TYLENOL) 17:23: Q6HPRN, [place] tablet 650 17 Starting Medic al mg [facility] 10/01/20 at 1223, Until Discontinu ed, Routine, Pain (scale 1-3) clonazePAM 2020- No .5mg 0.5 mg, Uni vers (KLONOPIN) 09-13 Oral, ity of tablet 0.5 04:45: 03:48 ONCE, 1 [place] as mg 00 :00 dose, [facility] 09/12/20 at [place] 2345, Routine famotidine No 20mg 20 mg, IV U nivers 20 mg in NS 09-13 Piggyback, i ty of 50 ml 02:45: 04:38 ONCE, 1 [place] (PEPCID) 20 00 :00 dose, [facility] Med ical mg/50 mL 09/12/20 at [place] Piggyback 2145, 50 20 mg mL diphenhydrA 2020- No 25mg 25 mg, Uni vers MINE 09-13 Slow IV ity of (BENADRYL) 02:45: 02:26 Push, [place] injection 00 :00 ONCE, 1 Medical 25 mg dose, [facility] 09/12/20 at 2145, STAT methylPREDN 2020- No 125mg 125 mg, U nivers ISolone sod 09-13 Intravenou i ty of succ 02:30: 02:22 s, ONCE [place] (SOLU-MEDRO 00 :00 NOW, 1 Medica l L (PF)) dose, [facility] injection 09/12/20 at 125 mg 2130, Routine carBAMazepi 2020- No 600mg 600 mg, U nivers ne 09-12- Oral, ity of (TEGRETOL) 02:45: 01:56 ONCE, 1 [place] as tablet 600 00 :00 dose, Tue Medi tressa mg 09/11/20 at Branch 2145, [place] hydrOXYzine 0 Yes [id number] 50mg Take 1 Univers (VISTARIL) 7-07 capsule by ity of 50 mg 00:00: mouth 3 [place] capsule 00 (three) Medical times Branch daily as needed for Itching. hydrOXYzine Yes [id number] 50mg Take 1 Univers (VISTARIL) 7-07 capsule by ity of 50 mg 00:00: mouth 3 [place] capsule 00 (three) Medical times Branch daily as needed for Itching. hydrOXYzine Yes [id number] 50mg Take 1 Univers (VISTARIL) 7-07 capsule by ity of 50 mg 00:00: mouth 3 [place] capsule 00 (three) Medical times Branch daily as needed for Itching. hydrOXYzine Yes [id number] 50mg Take 1 Univers (VISTARIL) 7-07 capsule by ity of 50 mg 00:00: mouth 3 [place] capsule 00 (three) Medical times Branch daily as needed for Itching. hydrOXYzine 0 Yes [id number] 50mg Take 1 Univers (VISTARIL) 7-07 capsule by ity of 50 mg 00:00: mouth 3 [place] capsule 00 (three) Medical times Branch daily as needed for Itching. hydrOXYzine 0 Yes [id number] 50mg Take 1 Univers (VISTARIL) 7-07 capsule by ity of 50 mg 00:00: mouth 3 [place] capsule 00 (three) Medical times Branch daily as needed for Itching. hydrOXYzine 0 Yes [id number] 50mg Take 1 Univers (VISTARIL) 7-07 capsule by ity of 50 mg 00:00: mouth 3 [place] capsule 00 (three) Medical times Branch daily as needed for Itching. hydrOXYzine 2020-0 Yes [id number] 50mg Take 1 Univers (VISTARIL) 7-07 capsule by ity of 50 mg 00:00: mouth 3 [place] capsule 00 (three) Medical times Branch daily as needed for Itching. hydrOXYzine 2020-0 Yes [id number] 50mg Take 1 Univers (VISTARIL) 7-07 capsule by ity of 50 mg 00:00: mouth 3 [place] capsule 00 (three) Medical times Branch daily as needed for Itching. hydrOXYzine 2020-0 Yes [id number] 50mg Take 1 Univers (VISTARIL) 7-07 capsule by ity of 50 mg 00:00: mouth 3 [place] capsule 00 (three) Medical times Branch daily as needed for Itching. hydrOXYzine 2020-0 Yes [id number] 50mg Take 1 Univers (VISTARIL) 7-07 capsule by ity of 50 mg 00:00: mouth 3 [place] capsule 00 (three) Medical times Branch daily as needed for Itching. hydrOXYzine 2020-0 Yes [id number] 50mg Take 1 Univers (VISTARIL) 7-07 capsule by ity of 50 mg 00:00: mouth 3 [place] capsule 00 (three) Medical times Branch daily as needed for Itching. hydrOXYzine 0 Yes [id number] 50mg Take 1 Univers (VISTARIL) 7-07 capsule by ity of 50 mg 00:00: mouth 3 [place] capsule 00 (three) Medical times Branch daily as needed for Itching. hydrOXYzine 2020-0 Yes [id number] 50mg Take 1 Univers (VISTARIL) 7-07 capsule by ity of 50 mg 00:00: mouth 3 [place] capsule 00 (three) Medical times Branch daily as needed for Itching. hydrOXYzine 2020-0 Yes [id number] 50mg Take 1 Univers (VISTARIL) 7-07 capsule by ity of 50 mg 00:00: mouth 3 [place] capsule 00 (three) Medical times Branch daily as needed for Itching. hydrOXYzine 2020-0 Yes [id number] 50mg Take 1 Univers (VISTARIL) 7-07 capsule by ity of 50 mg 00:00: mouth 3 [place] capsule 00 (three) Medical times Branch daily as needed for Itching. hydrOXYzine 2020-0 1- No [id number] 50mg Take 1 Univers (VISTARIL) 7-07 08-26 capsule by it y of 50 mg 00:00: 00:00 mouth 3 [place] capsule 00 :00 (three) Medical times Branch daily as needed for Itching. hydrOXYzine 2020- No [id number] 50mg Take 1 Univers (VISTARIL) 09-12 capsule by it y of 50 mg 00:00: 00:00 mouth 3 [place] capsule 00 :00 (three) Medical times Branch daily as needed for Itching. hydrOXYzine 2020- No [id number] 50mg Take 1 Univers (VISTARIL) 09-12 capsule by it y of 50 mg 00:00: 00:00 mouth 3 [place] capsule 00 :00 (three) Medical times Branch daily as needed for Itching. gabapentin 2020- No [id number] 300mg Take 1 Univers 300 mg 09-12 4105 capsule by ity of capsule 00:00: 04:59 mouth 3 [place] 00 :00 (three) Medical times Branch daily for 15 days. gabapentin 2020- No [id number] 300mg Take 1 Univers 300 mg 09-12 4105 capsule by ity of capsule 00:00: 04:59 mouth 3 [place] 00 :00 (three) Medical times Branch daily for 15 days. gabapentin 2020- No [id number] 300mg Take 1 Univers 300 mg 09-12 4105 capsule by ity of capsule 00:00: 04:59 mouth 3 [place] 00 :00 (three) Medical times Branch daily for 15 days. gabapentin 2020- No [id number] 300mg Take 1 Univers 300 mg 09-12 4105 capsule by ity of capsule 00:00: 04:59 mouth 3 [place] 00 :00 (three) Medical times Branch daily for 15 days. gabapentin 2020- No [id number] 300mg Take 1 Univers 300 mg 09-12 4105 capsule by ity of capsule 00:00: 04:59 mouth 3 [place] 00 :00 (three) Medical times Branch daily for 15 days. carBAMazepi 2020- Yes [id number] 200mg Take 1 Univers ne 09-11 tablet by ity of (TEGRETOL 00:00: mouth 2 [place] XR) 200 mg 00 (two) Medical 12 hr times Branch tablet daily. carBAMazepi 2020-0 Yes [id number] 200mg Take 1 Univers ne 7-06 tablet by ity of (TEGRETOL 00:00: mouth 2 [place] XR) 200 mg 00 (two) Medical 12 hr times Branch tablet daily. carBAMazepi 2020-0 Yes [id number] 200mg Take 1 Univers ne 7-06 tablet by ity of (TEGRETOL 00:00: mouth 2 [place] XR) 200 mg 00 (two) Medical 12 hr times Branch tablet daily. carBAMazepi 2020-0 Yes [id number] 200mg Take 1 Univers ne 7-06 tablet by ity of (TEGRETOL 00:00: mouth 2 [place] XR) 200 mg 00 (two) Medical 12 hr times Branch tablet daily. carBAMazepi 2020-0 Yes [id number] 200mg Take 1 Univers ne 7-06 tablet by ity of (TEGRETOL 00:00: mouth 2 [place] XR) 200 mg 00 (two) Medical 12 hr times Branch tablet daily. carBAMazepi 2020-0 Yes [id number] 200mg Take 1 Univers ne 7-06 tablet by ity of (TEGRETOL 00:00: mouth 2 [place] XR) 200 mg 00 (two) Medical 12 hr times Branch tablet daily. carBAMazepi 2020-0 Yes [id number] 200mg Take 1 Univers ne 7-06 tablet by ity of (TEGRETOL 00:00: mouth 2 [place] XR) 200 mg 00 (two) Medical 12 hr times Branch tablet daily. carBAMazepi 2020-0 2020- No [id number] 200mg Take 1 Univers ne 7-08 13-26 tablet by ity of (TEGRETOL 00:00: 00:00 mouth 2 [place] XR[place] 200 mg 00 :00 (two) Medical 12 hr times Branch tablet daily. carBAMazepi 2020-0 2020- No [id number] 200mg Take 1 Univers ne 7-08 13-26 tablet by ity of (TEGRETOL 00:00: 00:00 mouth 2 [place] XR[place] 200 mg 00 :00 (two) Medical 12 hr times Branch tablet daily. carBAMazepi 2020-0 2020- No [id number] 200mg Take 1 Univers ne 7-06 07-26 [...] Fri Medical 08/31/20 at Branch 1345, Routine
[employer] faculty member approving Restricted medication : Peace PAZ [...] CARBONATE 6-25 mouth. ity of ORAL 18:41: [address] LITHIUM Yes Take by Univer s CARBONATE 6-25 mouth. ity of ORAL 18:41: [address] LITHIUM Yes Take by Univer s CARBONATE 6-25 mouth. ity of ORAL 18:41: [address] LITHIUM Yes Take by Univer s CARBONATE 6-25 mouth. ity of ORAL 18:41: [address] LITHIUM Yes Take by Univer s CARBONATE 6-25 mouth. ity of ORAL 18:41: [address] LITHIUM Yes Take by Univer s CARBONATE 6-25 mouth. ity of ORAL 18:41: [address] LITHIUM Yes Take by Univer s CARBONATE 6-25 mouth. ity of ORAL 18:41: [address] Lacosamide Yes [id number] 100mg Take 1 Univers (VIMPAT) 6-25 tablet by ity of 100 mg 00:00: mouth [place] tablet 00 every 12 Medical (twelve) Branch hours. Lacosamide 2020- No [id number] 100mg Take 1 Univers (VIMPAT) 6-25 07-06 [...] Hospital h 2215, [place]AY[place] ibuprofen 0 Yes [id number] 600mg Take 1 Univers 600 mg 6-23 tablet by ity of tablet 00:00: mouth [place] 00 every 6 Medical (six) Branch hours as needed for Pain (scale 4-6). benzonatate 0 Yes [id number] 200mg Take 1 Univers 200 mg 6-23 capsule by ity of capsule 00:00: mouth 3 [place] 00 (three) Medical times Branch daily as needed for Cough for up to 20 doses. ondansetron 0 Yes [id number] 4mg Take 1 Univers (ZOFRAN 6-23 tablet by ity of ODT) 4 mg 00:00: mouth [place] disintegrat 00 every 8 Medic al ing tablet (eight) Branch hours as needed for Nausea and Vomiting (N/V). ibuprofen 2021-0 Yes [id number] 600mg Take 1 Univers 600 mg 6-23 tablet by ity of tablet 00:00: mouth [place] 00 every 6 Medical (six) Branch hours as needed for Pain (scale 4-6). benzonatate 2021-0 Yes [id number] 200mg Take 1 Univers 200 mg 6-23 capsule by ity of capsule 00:00: mouth 3 [place] 00 (three) Medical times Branch daily as needed for Cough for up to 20 doses. ondansetron 2021-0 Yes [id number] 4mg Take 1 Univers (ZOFRAN 6-23 tablet by ity of ODT) 4 mg 00:00: mouth [place] disintegrat 00 every 8 Medic al ing tablet (eight) Branch hours as needed for Nausea and Vomiting (N/V). ibuprofen 1-0 Yes [id number] 600mg Take 1 Univers 600 mg 6-23 tablet by ity of tablet 00:00: mouth [place] 00 every 6 Medical (six) Branch hours as needed for Pain (scale 4-6). benzonatate 2021-0 Yes [id number] 200mg Take 1 Univers 200 mg 6-23 capsule by ity of capsule 00:00: mouth 3 [place] 00 (three) Medical times Branch daily as needed for Cough for up to 20 doses. ondansetron 2021-0 Yes [id number] 4mg Take 1 Univers (ZOFRAN 6-23 tablet by ity of ODT) 4 mg 00:00: mouth [place] disintegrat 00 every 8 Medic al ing tablet (eight) Branch hours as needed for Nausea and Vomiting (N/V). ibuprofen 2021-0 Yes [id number] 600mg Take 1 Univers 600 mg 6-23 tablet by ity of tablet 00:00: mouth [place] 00 every 6 Medical (six) Branch hours as needed for Pain (scale 4-6). benzonatate 2021-0 Yes [id number] 200mg Take 1 Univers 200 mg 6-23 capsule by ity of capsule 00:00: mouth 3 [place] 00 (three) Medical times Branch daily as needed for Cough for up to 20 doses. ondansetron 2021-0 Yes [id number] 4mg Take 1 Univers (ZOFRAN 6-23 tablet by ity of ODT) 4 mg 00:00: mouth [place] disintegrat 00 every 8 Medic al ing tablet (eight) Branch hours as needed for Nausea and Vomiting (N/V). ibuprofen 1-0 Yes [id number] 600mg Take 1 [facility] 600 mg 6-23 tablet by ity of tablet 00:00: mouth [place] 00 every 6 Medical (six) Branch hours as needed for Pain (scale 4-6). benzonatate 2021-0 Yes [id number] 200mg Take 1 [facility] 200 mg 6-23 capsule by ity of capsule 00:00: mouth 3 [place] 00 (three) Medical times Branch daily as needed for Cough for up to 20 doses. ondansetron 1-0 Yes [id number] 4mg Take 1 Univers (ZOFRAN 6-23 tablet by ity of ODT) 4 mg 00:00: mouth [place] disintegrat 00 every 8 Medic al ing tablet (eight) Branch hours as needed for Nausea and Vomiting (N/V). ibuprofen 2020-0 Yes [id number] 600mg Take 1 Univers 600 mg 6-23 tablet by ity of tablet 00:00: mouth [place] 00 every 6 Medical (six) Branch hours as needed for Pain (scale 4-6). benzonatate 1-0 Yes [id number] 200mg Take 1 [facility] 200 mg 6-23 capsule by ity of capsule 00:00: mouth 3 [place] 00 (three) Medical times Branch daily as needed for Cough for up to 20 doses. ondansetron 2021-0 Yes [id number] 4mg Take 1 [facility] (ZOFRAN 6-23 tablet by ity of ODT) 4 mg 00:00: mouth [place] disintegrat 00 every 8 Medic al ing tablet (eight) Branch hours as needed for Nausea and Vomiting (N/V). ibuprofen 1-0 Yes [id number] 600mg Take 1 [facility] 600 mg 6-23 tablet by ity of tablet 00:00: mouth [place] 00 every 6 Medical (six) Branch hours as needed for Pain (scale 4-6). benzonatate 2021-0 Yes [id number] 200mg Take 1 [facility] 200 mg 6-23 capsule by ity of capsule 00:00: mouth 3 [place] 00 (three) Medical times Branch daily as needed for Cough for up to 20 doses. ondansetron 2021-0 Yes [id number] 4mg Take 1 [facility] (ZOFRAN 6-23 tablet by ity of ODT) 4 mg 00:00: mouth [place] disintegrat 00 every 8 Medic al ing tablet (eight) Branch hours as needed for Nausea and Vomiting (N/V). ibuprofen 2021-0 Yes [id number] 600mg Take 1 [facility] 600 mg 6-23 tablet by ity of tablet 00:00: mouth [place] 00 every 6 Medical (six) Branch hours as needed for Pain (scale 4-6). benzonatate 2021-0 Yes [id number] 200mg Take 1 [facility] 200 mg 6-23 capsule by ity of capsule 00:00: mouth 3 [place] 00 (three) Medical times Branch daily as needed for Cough for up to 20 doses. ondansetron 2020-0 Yes [id number] 4mg Take 1 [facility] (ZOFRAN 6-23 tablet by ity of ODT) 4 mg 00:00: mouth [place] disintegrat 00 every 8 Medic al ing tablet (eight) Branch hours as needed for Nausea and Vomiting (N/V). ibuprofen 2020-0 Yes [id number] 600mg Take 1 [facility] 600 mg 6-23 tablet by ity of tablet 00:00: mouth [place] 00 every 6 Medical (six) Branch hours as needed for Pain (scale 4-6). benzonatate 1-0 Yes [id number] 200mg Take 1 [facility] 200 mg 6-23 capsule by ity of capsule 00:00: mouth 3 [place] 00 (three) Medical times Branch daily as needed for Cough for up to 20 doses. ondansetron 1-0 Yes [id number] 4mg Take 1 [facility] (ZOFRAN 6-23 tablet by ity of ODT) 4 mg 00:00: mouth [place] disintegrat 00 every 8 Medic al ing tablet (eight) Branch hours as needed for Nausea and Vomiting (N/V). ibuprofen 2021-0 Yes [id number] 600mg Take 1 [facility] 600 mg 6-23 tablet by ity of tablet 00:00: mouth [place] 00 every 6 Medical (six) Branch hours as needed for Pain (scale 4-6). benzonatate 2021-0 Yes [id number] 200mg Take 1 [facility] 200 mg 6-23 capsule by ity of capsule 00:00: mouth 3 [place] 00 (three) Medical times Branch daily as needed for Cough for up to 20 doses. ondansetron 2020-0 Yes [id number] 4mg Take 1 [facility] (ZOFRAN 6-23 tablet by ity of ODT) 4 mg 00:00: mouth [place] disintegrat 00 every 8 Medic al ing tablet (eight) Branch hours as needed for Nausea and Vomiting (N/V). ibuprofen 2020-0 Yes [id number] 600mg Take 1 [facility] 600 mg 6-23 tablet by ity of tablet 00:00: mouth [place] 00 every 6 Medical (six) Branch hours as needed for Pain (scale 4-6). benzonatate 2020-0 Yes [id number] 200mg Take 1 [facility] 200 mg 6-23 capsule by ity of capsule 00:00: mouth (three) Medical times Branch daily as needed for Cough for up to 20 doses. ondansetron 2020-0 Yes [id number] 4mg Take 1 [facility] (ZOFRAN 6-23 tablet by ity of ODT) 4 mg 00:00: mouth [place] disintegrat 00 every 8 Medic al ing tablet (eight) Branch hours as needed for Nausea and Vomiting (N/V). benzonatate 2020-0 Yes [id number] 200mg Take 1 [facility] 200 mg 6-23 capsule by ity of capsule 00:00: mouth (three) Medical times Branch daily as needed for Cough for up to 20 doses. benzonatate 2020-0 Yes [id number] 200mg Take 1 [facility] 200 mg 6-23 capsule by ity of capsule 00:00: mouth (three) Medical times Branch daily as needed for Cough for up to 20 doses. benzonatate 2020-0 Yes [id number] 200mg Take 1 [facility] 200 mg 6-23 capsule by ity of capsule 00:00: mouth (three) Medical times Branch daily as needed for Cough for up to 20 doses. benzonatate 1-0 Yes [id number] 200mg Take 1 [facility] 200 mg 6-23 capsule by ity of capsule 00:00: mouth (three) Medical times Branch daily as needed for Cough for up to 20 doses. benzonatate 1-0 Yes [id number] 200mg Take 1 [facility] 200 mg 6-23 capsule by ity of capsule 00:00: mouth (three) Medical times Branch daily as needed for Cough for up to 20 doses. benzonatate 2020-0 Yes [id number] 200mg Take 1 [facility] 200 mg 6-23 capsule by ity of capsule 00:00: mouth 3 (three) Medical times Branch daily as needed for Cough for up to 20 doses. benzonatate 2020-0 Yes [id number] 200mg Take 1 [facility] 200 mg 6-23 capsule by ity of capsule 00:00: mouth (three) Medical times Branch daily as needed for Cough for up to 20 doses. benzonatate 2020-0 Yes [id number] 200mg Take 1 [facility] 200 mg 6-23 capsule by ity of capsule 00:00: mouth (three) Medical times Branch daily as needed for Cough for up to 20 doses. benzonatate 2020-0 Yes [id number] 200mg Take 1 [facility] 200 mg 6-23 capsule by ity of capsule 00:00: mouth (three) Medical times Branch daily as needed for Cough for up to 20 doses. benzonatate 2020-0 Yes [id number] 200mg Take 1 [facility] 200 mg 6-23 capsule by ity of capsule 00:00: mouth (three) Medical times Branch daily as needed for Cough for up to 20 doses. benzonatate 2020-0 Yes [id number] 200mg Take 1 [facility] 200 mg 6-23 capsule by ity of capsule 00:00: mouth (three) Medical times Branch daily as needed for Cough for up to 20 doses. benzonatate 2020-0 2020- No [id number] 200mg Take 1 [facility] 200 mg 6-23 08-26 capsule by ity of capsule 00:00: 00:00 mouth 3 [place] 00 : (three) Medical times Branch daily as needed for Cough for up to 20 doses. benzonatate 2020-0 2021- No [id number] 200mg Take 1 [facility] 200 mg 6-23 08-26 capsule by ity of capsule 00:00: 00:00 mouth 3 [place] 00 :00 (three) Medical times Branch daily as needed for Cough for up to 20 doses. benzonatate 2020-0 2021- No [id number] 200mg Take 1 [facility] 200 mg 6-23 08-26 capsule by ity of capsule 00:00: 00:00 mouth 3 [place] 00 :00 (three) Medical times Branch daily as needed for Cough for up to 20 doses. ibuprofen 2020- No [id number] 600mg Take 1 [facility] 600 mg 08-29-30 tablet by ity of tablet 00:00: 00:00 mouth [place] 00 :00 every 6 Medical (six) Branch hours as needed for Pain (scale 4-6). ondansetron 2020- No [id number] 4mg Take 1 [facility] (ZOFRAN 08-2930 tablet [...] ity of 1,000 mg in 03:45: 03:13 [place], [place] NaCl 0.9% 00 :00 ONCE, 1 Medical (NS) 50 mL dose, [facility] ch MINI-BAG 05/13/20 at 2145, 50 mL
Reas on for Anti-Infec tive: Documented Infection< br>Documen con Infection Site: Urine
D uration of Therapy: Other (see Comments) NaCl 0.9% 2020- No 1000mL at 999 Uni vers (NS) bolus 05-14-08 mL/hr, ity of infusion 02:15: 02:38 1,000 mL, [place] as 1,000 mL 00 :00 IV Medical Infusion, Branch ONCE, 1 dose, [place] 05/13/20 at 2015, STAT ketorolac 2020- No 30mg 30 mg, Unive rs (TORADOL) 05-14-08 Slow IV ity of injection 01:30: 01:28 [place], [place] 30 mg 00 :00 ONCE, 1 Medical dose, [place] [facility] 05/13/20 at 1930, [facility] : [facility] PAZ ibuprofen 2020-0 Yes [id number] 600mg Take 1 U nivers 600 mg 3-07 tablet by ity of tablet 00:00: mouth [place] 00 every 6 Medical (six) Branch hours as needed for Pain (scale 4-6). ondansetron 2020-0 Yes [id number] 4mg Take 1 [facility] (ZOFRAN 3-07 tablet by ity of ODT) 4 mg 00:00: mouth [place] disintegrat 00 every 8 Medic al ing tablet (eight) Branch hours as needed for Nausea and Vomiting (N/V). ibuprofen 2020-0 Yes [id number] 600mg Take 1 U nivers 600 mg 3-07 tablet by ity of tablet 00:00: mouth [place] 00 every 6 Medical (six) Branch hours as needed for Pain (scale 4-6). ondansetron 0 Yes [id number] 4mg Take 1 [facility] (ZOFRAN 3-07 tablet by ity of ODT) 4 mg 00:00: mouth [place] disintegrat 00 every 8 Medic al ing tablet (eight) Branch hours as needed for Nausea and Vomiting (N/V). ibuprofen 0 Yes [id number] 600mg Take 1 U nivers 600 mg 3-07 tablet by ity of tablet 00:00: mouth [place] 00 every 6 Medical (six) Branch hours as needed for Pain (scale 4-6). ondansetron 2020-0 Yes [id number] 4mg Take 1 [facility] (ZOFRAN 3-07 tablet by ity of ODT) 4 mg 00:00: mouth [place] disintegrat 00 every 8 Medic al ing tablet (eight) Branch hours as needed for Nausea and Vomiting (N/V). ibuprofen 2020-0 Yes [id number] 600mg Take 1 [facility] nivers 600 mg 3-07 tablet by ity of tablet 00:00: mouth [place] 00 every 6 Medical (six) Branch hours as needed for Pain (scale 4-6). ondansetron 2020-0 Yes [id number] 4mg Take 1 [facility] (ZOFRAN 3-07 tablet by ity of ODT) 4 mg 00:00: mouth [place] disintegrat 00 every 8 Medic al ing tablet (eight) Branch hours as needed for Nausea and Vomiting (N/V). ibuprofen 2020-0 Yes [id number] 600mg Take 1 [facility] nivers 600 mg 3-07 tablet by ity of tablet 00:00: mouth [place] 00 every 6 Medical (six) Branch hours as needed for Pain (scale 4-6). ondansetron 2020-0 Yes [id number] 4mg Take 1 [facility] (ZOFRAN 3-07 tablet by ity of ODT) 4 mg 00:00: mouth [place] disintegrat 00 every 8 Medic al ing tablet (eight) Branch hours as needed for Nausea and Vomiting (N/V). ibuprofen 2020-0 Yes [id number] 600mg Take 1 U nivers 600 mg 3-07 tablet by ity of tablet 00:00: mouth [place] 00 every 6 Medical (six) Branch hours as needed for Pain (scale 4-6). ondansetron 2020-0 Yes [id number] 4mg Take 1 [facility] (ZOFRAN 3-07 tablet by ity of ODT) 4 mg 00:00: mouth [place] disintegrat 00 every 8 Medic al ing tablet (eight) Branch hours as needed for Nausea and Vomiting (N/V). ibuprofen 2020-0 Yes [id number] 600mg Take 1 U nivers 600 mg 3-07 tablet by ity of tablet 00:00: mouth [place] 00 every 6 Medical (six) Branch hours as needed for Pain (scale 4-6). ondansetron 2020-0 Yes [id number] 4mg Take 1 [facility] (ZOFRAN 3-07 tablet by ity of ODT) 4 mg 00:00: mouth [place] disintegrat 00 every 8 Medic al ing tablet (eight) Branch hours as needed for Nausea and Vomiting (N/V). ibuprofen 2020-0 Yes [id number] 600mg Take 1 U nivers 600 mg 3-07 tablet by ity of tablet 00:00: mouth [place] 00 every 6 Medical (six) Branch hours as needed for Pain (scale 4-6). ondansetron 2021-0 Yes [id number] 4mg Take 1 [facility] (ZOFRAN 3-07 tablet by ity of ODT) 4 mg 00:00: mouth [place] disintegrat 00 every 8 Medic al ing tablet (eight) Branch hours as needed for Nausea and Vomiting (N/V). ibuprofen 2020-0 Yes [id number] 600mg Take 1 U nivers 600 mg 3-07 tablet by ity of tablet 00:00: mouth [place] 00 every 6 Medical (six) Branch hours as needed for Pain (scale 4-6). ondansetron 2021-0 Yes [id number] 4mg Take 1 [facility] (ZOFRAN 3-07 tablet by ity of ODT) 4 mg 00:00: mouth [place] disintegrat 00 every 8 Medic al ing tablet (eight) Branch hours as needed for Nausea and Vomiting (N/V). ibuprofen 2020-0 Yes [id number] 600mg Take 1 U nivers 600 mg 3-07 tablet by ity of tablet 00:00: mouth [place] 00 every 6 Medical (six) Branch hours as needed for Pain (scale 4-6). ondansetron 2020-0 Yes [id number] 4mg Take 1 [facility] (ZOFRAN 3-07 tablet by ity of ODT) 4 mg 00:00: mouth [place] disintegrat 00 every 8 Medic al ing tablet (eight) Branch hours as needed for Nausea and Vomiting (N/V). ibuprofen 2020-0 Yes [id number] 600mg Take 1 U nivers 600 mg 3-07 tablet by ity of tablet 00:00: mouth [place] 00 every 6 Medical (six) Branch hours as needed for Pain (scale 4-6). ondansetron 1-0 Yes [id number] 4mg Take 1 [facility] (ZOFRAN 3-07 tablet by ity of ODT) 4 mg 00:00: mouth [place] disintegrat 00 every 8 Medic al ing tablet (eight) Branch hours as needed for Nausea and Vomiting (N/V). ibuprofen 2020-0 Yes [id number] 600mg Take 1 U nivers 600 mg 3-07 tablet by ity of tablet 00:00: mouth [place] 00 every 6 Medical (six) Branch hours as needed for Pain (scale 4-6). ondansetron 2021-0 Yes [id number] 4mg Take 1 [facility] (ZOFRAN 3-07 tablet by ity of ODT) 4 mg 00:00: mouth [place] disintegrat 00 every 8 Medic al ing tablet (eight) Branch hours as needed for Nausea and Vomiting (N/V). ibuprofen 202-0 Yes [id number] 600mg Take 1 U nivers 600 mg 3-07 tablet by ity of tablet 00:00: mouth [place] 00 every 6 Medical (six) Branch hours as needed for Pain (scale 4-6). ondansetron 2021-0 Yes [id number] 4mg Take 1 [facility] (ZOFRAN 3-07 tablet by ity of ODT) 4 mg 00:00: mouth [place] disintegrat 00 every 8 Medic al ing tablet (eight) Branch hours as needed for Nausea and Vomiting (N/V). ibuprofen 2020-0 Yes [id number] 600mg Take 1 U nivers 600 mg 3-07 tablet by ity of tablet 00:00: mouth [place] 00 every 6 Medical (six) Branch hours as needed for Pain (scale 4-6). ondansetron 202-0 Yes [id number] 4mg Take 1 [facility] (ZOFRAN 3-07 tablet by ity of ODT) 4 mg 00:00: mouth [place] disintegrat 00 every 8 Medic al ing tablet (eight) Branch hours as needed for Nausea and Vomiting (N/V). ibuprofen 2020-0 Yes [id number] 600mg Take 1 U nivers 600 mg 3-07 tablet by ity of tablet 00:00: mouth [place] 00 every 6 Medical (six) Branch hours as needed for Pain (scale 4-6). ondansetron 2020-0 Yes [id number] 4mg Take 1 [facility] (ZOFRAN 3-07 tablet by ity of ODT) 4 mg 00:00: mouth [place] disintegrat 00 every 8 Medic al ing tablet (eight) Branch hours as needed for Nausea and Vomiting (N/V). ibuprofen 2020-0 Yes [id number] 600mg Take 1 U nivers 600 mg 3-07 tablet by ity of tablet 00:00: mouth [place] 00 every 6 Medical (six) Branch hours as needed for Pain (scale 4-6). ondansetron 2021-0 Yes [id number] 4mg Take 1 [facility] (ZOFRAN 3-07 tablet by ity of ODT) 4 mg 00:00: mouth [place] disintegrat 00 every 8 Medic al ing tablet (eight) Branch hours as needed for Nausea and Vomiting (N/V). ibuprofen 2021-0 Yes [id number] 600mg Take 1 U nivers 600 mg 3-07 tablet by ity of tablet 00:00: mouth [place] 00 every 6 Medical (six) Branch hours as needed for Pain (scale 4-6). ibuprofen 2021-0 Yes [id number] 600mg Take 1 U nivers 600 mg 3-07 tablet by ity of tablet 00:00: mouth [place] 00 every 6 Medical (six) Branch hours as needed for Pain (scale 4-6). ibuprofen 2020-0 Yes [id number] 600mg Take 1 U nivers 600 mg 3-07 tablet by ity of tablet 00:00: mouth [place] 00 every 6 Medical (six) Branch hours as needed for Pain (scale 4-6). ibuprofen 2020-0 Yes [id number] 600mg Take 1 U nivers 600 mg 3-07 tablet by ity of tablet 00:00: mouth [place] 00 every 6 Medical (six) Branch hours as needed for Pain (scale 4-6). ibuprofen 2020-0 Yes [id number] 600mg Take 1 U nivers 600 mg 3-07 tablet by ity of tablet 00:00: mouth [place] 00 every 6 Medical (six) Branch hours as needed for Pain (scale 4-6). ibuprofen 2020-0 Yes [id number] 600mg Take 1 U nivers 600 mg 3-07 tablet by ity of tablet 00:00: mouth [place] 00 every 6 Medical (six) Branch hours as needed for Pain (scale 4-6). ibuprofen 2020-0 Yes [id number] 600mg Take 1 U nivers 600 mg 3-07 tablet by ity of tablet 00:00: mouth [place] 00 every 6 Medical (six) Branch hours as needed for Pain (scale 4-6). ibuprofen 2020-0 Yes [id number] 600mg Take 1 U nivers 600 mg 3-07 tablet by ity of tablet 00:00: mouth [place] 00 every 6 Medical (six) Branch hours as needed for Pain (scale 4-6). ibuprofen 2020-0 Yes [id number] 600mg Take 1 U nivers 600 mg 3-07 tablet by ity of tablet 00:00: mouth [place] 00 every 6 Medical (six) Branch hours as needed for Pain (scale 4-6). ibuprofen 2021-0 Yes [id number] 600mg Take 1 U nivers 600 mg 3-07 tablet by ity of tablet 00:00: mouth [place] 00 every 6 Medical (six) Branch hours as needed for Pain (scale 4-6). ibuprofen 1-0 Yes [id number] 600mg Take 1 U nivers 600 mg 3-07 tablet by ity of tablet 00:00: mouth [place] 00 every 6 Medical (six) Branch hours as needed for Pain (scale 4-6). ibuprofen 2020- No [id number] 600mg Take 1 [facility] 600 mg 05-13 tablet by ity of tablet 00:00: 00:00 mouth [place] 00 :00 every 6 Medical (six) Branch hours as needed for Pain (scale 4-6). ibuprofen 2020- No [id number] 600mg Take 1 [facility] 600 mg 05-13 tablet by ity of tablet 00:00: 00:00 mouth [place] 00 :00 every 6 Medical (six) Branch hours as needed for Pain (scale 4-6). ibuprofen 2020- No [id number] 600mg Take 1 [facility] 600 mg 05-13 tablet by ity of tablet 00:00: 00:00 mouth [place] 00 :00 every 6 Medical (six) Branch hours as needed for Pain (scale 4-6). ondansetron 2020- No [id number] 4mg Take 1 [facility] (ZOFRAN 05-13 tablet by ity of ODT) 4 mg 00:00: 00:00 mouth [place] disintegrat 00 :00 every 8 Medic al ing tablet (eight) Branch hours as needed for Nausea and Vomiting (N/V). cephALEXin 2020- No [id number] 500mg Take 1 [facility] (KEFLEX) 05-13-18 capsule by ity of 500 mg 00:00: 04:59 mouth 3 [place] capsule 00 :00 (three) Medical times Branch daily for 10 days. metroNIDAZO 2019-03- No [id number] 500mg Take 1 [facility] LE 500 mg 03-2121 tablet by ity of tablet 00:00: 05:59 mouth 2 [place] 00 :00 (two) Medical times Branch daily for 7 days. metroNIDAZO 2019-03- No [id number] 500mg Take 1 [facility] LE 500 mg 03-21-21 tablet by ity of tablet 00:00: 05:59 mouth 2 [place] 00 :00 (two) Medical times Branch daily for 7 days. azithromyci 2019-03- No [id number] 1000mg Take 2 Univers n 500 mg 0-14 10-16 tablets by ity of tablet 00:00: 04:59 mouth [place] 00 :00 daily for Medical 1 day. Branch azithromyci 2019-03 2020- No [id number] 1000mg Take 2 Univers n 500 mg 0-14 10-16 tablets by ity of tablet 00:00: 04:59 mouth [place] 00 :00 daily for Medical 1 day. Branch fluconazole 2020- No [id number] 150mg Take 1 [facility] (DIFLUCAN) 8-17 08-18 tablet by ity of 150 mg 00:00: 04:59 mouth [place] tablet 00 :00 now for 1 Medical dose. Branch metroNIDAZO 2020- No [id number] 500mg Take 1 [facility] LE (FLAGYL) 7-22 07-30 tablet by it y of 500 mg 00:00: 04:59 mouth 2 [place] tablet 00 :00 (two) Medical times [place] daily for 7 days. topiramate 2020-0 Yes 100mg Take 100 [facility] [place] (TOPAMAX) 7-21 mg by ity of 100 mg 19:33: mouth. [address] topiramate 2020-0 Yes 100mg Take 100 [facility] [place] (TOPAMAX) 7-21 mg by ity of 100 mg 19:33: mouth. [place] tablet [address] [place] [address] topiramate 2020-0 Yes 100mg Take 100 [facility] [place] (TOPAMAX) 7-21 mg by ity of 100 mg 19:33: mouth. [address] topiramate 2020-0 Yes 100mg Take 100 [facility] [place] (TOPAMAX) 7-21 mg by ity of 100 mg 19:33: mouth. [address] topiramate 2020-0 Yes 100mg Take 100 Un [place] (TOPAMAX) 7-21 mg by ity of 100 mg 19:33: mouth. [address] topiramate 2020-0 Yes 100mg Take 100 Un [place] (TOPAMAX) 7-21 mg by ity of 100 mg 19:33: mouth. [address] topiramate 2020-0 Yes 100mg Take 100 [facility] [place] (TOPAMAX) 7-21 mg by ity of 100 mg 19:33: mouth. [address] topiramate 2020-0 Yes 100mg Take 100 [facility] [place] (TOPAMAX) 7-21 mg by ity of 100 mg 19:33: mouth. [place] tablet [address] [place] [address] topiramate 2020-0 Yes 100mg Take 100 [facility] [place] (TOPAMAX) 7-21 mg by ity of 100 mg 19:33: mouth. [place] tablet [address] [place] [address] topiramate 2020-0 Yes 100mg Take 100 [facility] [place] (TOPAMAX) 7-21 mg by ity of 100 mg 19:33: mouth. [place] tablet [address] [place] [address] topiramate 2020-0 Yes 100mg Take 100 Un [place] (TOPAMAX) 7-21 mg by ity of 100 mg 19:33: mouth. [place] tablet [address] [place] [address] topiramate 2020-0 Yes 100mg Take 100 [facility] [place] (TOPAMAX) 7-21 mg by ity of 100 mg 19:33: mouth. [place] tablet [address] [place] [address] topiramate 2020-0 Yes 100mg Take 100 [facility] [place] (TOPAMAX) 7-21 mg by ity of 100 mg 19:33: mouth. [address] topiramate 2020-0 Yes 100mg Take 100 [facility] [place] (TOPAMAX) 7-21 mg by ity of 100 mg 19:33: mouth. [address] topiramate 2020-0 Yes 100mg Take 100 [facility] [place] (TOPAMAX) 7-21 mg by ity of 100 mg 19:33: mouth. [address] topiramate 2020-0 Yes 100mg Take 100 [facility] [place] (TOPAMAX) 7-21 mg by ity of 100 mg 19:33: mouth. [place] tablet [address] [place] [address] topiramate 2020-0 Yes 100mg Take 100 [facility] [place] (TOPAMAX) 7-21 mg by ity of 100 mg 19:33: mouth. [address] topiramate 2020-0 Yes 100mg Take 100 [facility] [place] (TOPAMAX) 7-21 mg by ity of 100 mg 19:33: mouth. [address] topiramate 2020-0 Yes 100mg Take 100 [facility] [place] (TOPAMAX) 7-21 mg by ity of 100 mg 19:33: mouth. [place] tablet [address] [place] [address] topiramate 2020-0 Yes 100mg Take 100 [facility] [place] (TOPAMAX) 7-21 mg by ity of 100 mg 19:33: mouth. [address] topiramate 2020-0 Yes 100mg Take 100 [facility] [place] (TOPAMAX) 7-21 mg by ity of 100 mg 19:33: mouth. [place] tablet [address] [place] [address] topiramate 2020-0 Yes 100mg Take 100 [facility] [place] (TOPAMAX) 7-21 mg by ity of 100 mg 19:33: mouth. [place] tablet [address] [place] [address] topiramate 2020-0 Yes 100mg Take 100 [facility] [place] (TOPAMAX) 7-21 mg by ity of 100 mg 19:33: mouth. [place] tablet [address] [place] [address] topiramate 2020-0 Yes 100mg Take 100 [facility] [place] (TOPAMAX) 7-21 mg by ity of 100 mg 19:33: mouth. [place] tablet [address] [place] [address] topiramate 2020-0 Yes 100mg Take 100 [facility] [place] (TOPAMAX) 7-21 mg by ity of 100 mg 19:33: mouth. [place] tablet [address] [place] [address] topiramate 2020-0 Yes 100mg Take 100 [facility] [place] (TOPAMAX) 7-21 mg by ity of 100 mg 19:33: mouth. [address] topiramate 2020-0 Yes 100mg Take 100 [facility] [place] (TOPAMAX) 7-21 mg by ity of 100 mg 19:33: mouth. [place] tablet [address] [place] [address] topiramate 2020-0 Yes 100mg Take 100 [facility] [place] (TOPAMAX) 7-21 mg by ity of 100 mg 19:33: mouth. [place] tablet [address] [place] [address] topiramate 2020-0 Yes 100mg Take 100 [facility] [place] (TOPAMAX) 7-21 mg by ity of 100 mg 19:33: mouth. [place] tablet [address] [place] [address] topiramate 2020-0 Yes 100mg Take 100 [facility] [place] (TOPAMAX) 7-21 mg by ity of 100 mg 19:33: mouth. [place] tablet [address] [place] [address] topiramate 2020-0 Yes 100mg Take 100 [facility] [place] (TOPAMAX) 7-21 mg by ity of 100 mg 19:33: mouth. [place] tablet [address] [place] [address] topiramate 2020-0 Yes 100mg Take 100 [facility] (TOPAMAX) 7-21 mg by ity of 100 mg 19:33: mouth. [place] tablet [address] [place] [address] topiramate 2020-0 Yes 100mg Take 100 Un [...] tablet 15 Medical Branch montelukast 2020-0 Yes [id number] 10mg Take 1 [facility] 10 mg 6-11 tablet by ity of tablet 00:00: mouth [place] 00 daily. Medical Branch loratadine 2020-0 Yes [id number] 10mg Take 1 U nivers 10 mg 6-11 tablet by ity of tablet 00:00: mouth [place] 00 daily. Medical Branch benzonatate 2020-0 Yes [id number] 100mg Take 1 [facility] 100 mg 6-11 capsule by ity of capsule 00:00: mouth 3 [place] 00 (three) Medical times Branch daily as needed for Cough. montelukast 2019-0 Yes [id number] 10mg Take 1 [facility] 10 mg 6-11 tablet by ity of tablet 00:00: mouth [place] 00 daily. Medical Branch loratadine 2019-0 Yes [id number] 10mg Take 1 U nivers 10 mg 6-11 tablet by ity of tablet 00:00: mouth [place] 00 daily. Medical Branch benzonatate 2020-0 Yes [id number] 100mg Take 1 [facility] 100 mg 6-11 capsule by ity of capsule 00:00: mouth 3 [place] 00 (three) Medical times Branch daily as needed for Cough. montelukast 2019-0 2020- No [id number] 10mg Take 1 [facility] 10 mg 6-11 07-21 tablet by ity of tablet 00:00: 00:00 mouth [place] 00 :00 daily. Medical Branch loratadine 2020-0 2020- No [id number] 10mg Take 1 [facility] 10 mg 6-11 07-21 tablet by ity of tablet 00:00: 00:00 mouth [place] 00 :00 daily. Medical Branch benzonatate 2020-0 2020- No [id number] 100mg Take 1 [facility] 100 mg 6-11 07-21 capsule by ity of capsule 00:00: 00:00 mouth 3 [place] 00 :00 (three) Medical times Branch daily as needed for Cough. montelukast 2019-0 2020- No [id number] 10mg Take 1 [facility] 10 mg 6-11 07-21 tablet by ity of tablet 00:00: 00:00 mouth [place] 00 :00 daily. Medical Branch loratadine 2019- No [id number] 10mg Take 1 [facility] 10 mg 08-17 tablet by ity of tablet 00:00: 00:00 mouth [place] 00 :00 daily. Medical Branch benzonatate 2019- No [id number] 100mg Take 1 [facility] 100 mg 08-17 capsule by ity of capsule 00:00: 00:00 mouth 3 [place] 00 :00 (three) Medical times Branch daily as needed for Cough. QUEtiapine 2019- No TAKE 1 Univ ers 25 mg 08-12 TABLET BY ity of tablet 00:00: 00:00 [place] [facility] BEDTIME Branch QUEtiapine 2019- No TAKE 1 Univ ers 25 mg 08-12 TABLET BY ity of tablet 00:00: 00:00 [place] [facility] iohexol 2019- No 120mL 120 mL, Unive rs (OMNIPAQUE 07-28 Intravenou it y of 350 04:15: 04:15 s, ONCE, 1 [place] BULK-150 00 :00 dose, [facility] mL) 07/28/19 at [place] injection 2315, 120 mL Routine guaiFENesin 2019- No 200mg 200 mg, U nivers 100 mg/5 mL 07-27 Oral, ity of solution 23:30: 00:27 ONCE, 1 [place] 200 mg 00 :00 dose, [facility] 07/28/19 at Branch 1845, SHAYNA albuterol 2019- No 2{puff} 2 Puff, U nivers (VENTOLIN) 07-27 Inhalation it y of inhaler 2 23:30: 00:28 , [place] 1 [place] Puff 00 :[place] dose, [facility] 07/28/19 at [place] [id number], SHAYNA
Is this order for a patient with suspected or confirmed COVID-19 infection? Yes dextrometho 2019- Yes [id number] 10mL Take 10 mL [facility] rphan-guaif 07-27 by mouth ity of enesin 00:00: every 8 [place] 10-100 mg/5 00 (eight) Medic al mL solution hours as Bran ch needed for Cough. albuterol 2020-0 Yes [id number] 2{puff} Inhale 2 Univers 90 5-21 Puffs ity of mcg/actuati 00:00: every 4 [place] as on inhaler 00 (four) Medical hours as Branch needed for Wheezing, Shortness of Breath or Chest tightness. dextrometho 2020-0 Yes [id number] 10mL Take 10 mL [facility] rphan-guaif 5-21 by mouth ity of enesin 00:00: every 8 [place] 10-100 mg/5 00 (eight) Medic al mL solution hours as Bran ch needed for Cough. albuterol 2020-0 Yes [id number] 2{puff} Inhale 2 [facility] 90 5-21 Puffs ity of mcg/actuati 00:00: every 4 [place] as on inhaler 00 (four) Medical hours as Branch needed for Wheezing, Shortness of Breath or Chest tightness. dextrometho 2020-0 Yes [id number] 10mL Take 10 mL [facility] rphan-guaif 5-21 by mouth ity of enesin 00:00: every 8 [place] 10-100 mg/5 00 (eight) Medic al mL solution hours as Bran ch needed for Cough. albuterol 2020-0 Yes [id number] 2{puff} Inhale 2 [facility] 90 5-21 Puffs ity of mcg/actuati 00:00: every 4 [place] as on inhaler 00 (four) Medical hours as Branch needed for Wheezing, Shortness of Breath or Chest tightness. dextrometho 2020-0 Yes [id number] 10mL Take 10 mL [facility] rphan-guaif 5-21 by mouth ity of enesin 00:00: every 8 [place] 10-100 mg/5 00 (eight) Medic al mL solution hours as Bran ch needed for Cough. albuterol 2020-0 Yes [id number] 2{puff} Inhale 2 [facility] 90 5-21 Puffs ity of mcg/actuati 00:00: every 4 [place] on inhaler 00 (four) Medical hours as Branch needed for Wheezing, Shortness of Breath or Chest tightness. dextrometho 2020-0 Yes [id number] 10mL Take 10 mL [facility] rphan-guaif 5-21 by mouth ity of enesin 00:00: every 8 [place] 10-100 mg/5 00 (eight) Medic al mL solution hours as Bran ch needed for Cough. albuterol Yes [id number] 2{puff} Inhale 2 [facility] 90 5-21 Puffs ity of mcg/actuati 00:00: every 4 [place] on inhaler 00 (four) Medical hours as Branch needed for Wheezing, Shortness of Breath or Chest tightness. dextrometho 2019- No [id number] 10mL Take 10 mL [facility] rphan-guaif 5-21 07-21 by mouth ity of enesin 00:00: 00:00 every 8 [place] 10-100 mg/5 00 :00 (eight) Medic al mL solution hours as Bran ch needed for Cough. albuterol 2020- No [id number] 2{puff} Inhale 2 [facility] 90 5-21 07-21 Puffs ity of mcg/actuati 00:00: 00:00 every 4 [place] inhaler 00 :00 (four) Medical hours as Branch needed for Wheezing, Shortness of Breath or Chest tightness. dextrometho 2020- No [id number] 10mL Take 10 mL [facility] rphan-guaif 5-21 07-21 by mouth ity of enesin 00:00: 00:00 every 8 [place] 10-100 mg/5 00 :00 (eight) Medic al mL solution hours as Bran ch needed for Cough. albuterol 2020- No [id number] 2{puff} Inhale 2 [facility] 90 5-21 07-21 Puffs ity of mcg/actuati 00:00: 00:00 every 4 [place] inhaler 00 :00 (four) Medical hours as Branch needed for Wheezing, Shortness of Breath or Chest tightness. predniSONE 2019- 2020- No [id number] 30mg Take 3 [facility] 10 mg 5-21 05-26 tablets by ity of tablet 00:00: 04:59 mouth [place] 00 :00 daily for Medical 4 days. Branch predniSONE 2020- No [id number] 30mg Take 3 [facility] 10 mg 5-21 05-26 tablets by ity of tablet 00:00: 04:59 mouth [place] 00 :00 daily for Medical 4 days. Branch levonorgest 2019-0 Yes [id number] 1{tbl} Take 1 Univers rel-ethinyl 5-11 tablet by ity of estradiol 00:00: mouth [place] (SRONYX) 00 daily. Medical 0.1-20 Branch mg-mcg per tablet levonorgest 2020-0 Yes [id number] 1{tbl} Take 1 [facility] rel-ethinyl 5-11 tablet by ity of estradiol 00:00: mouth [place] (SRONYX) 00 daily. Medical 0.1-20 Branch mg-mcg per tablet levonorgest 2020-0 Yes [id number] 1{tbl} Take 1 [facility] rel-ethinyl 5-11 tablet by ity of estradiol 00:00: mouth [place] (SRONYX) 00 daily. Medical 0.1-20 Branch mg-mcg per tablet levonorgest 2020-0 Yes [id number] 1{tbl} Take 1 [facility] rel-ethinyl 5-11 tablet by ity of estradiol 00:00: mouth [place] (SRONYX) 00 daily. Medical 0.1-20 Branch mg-mcg per tablet levonorgest 2020-0 Yes [id number] 1{tbl} Take 1 [facility] rel-ethinyl 5-11 tablet by ity of estradiol 00:00: mouth [place] (SRONYX) 00 daily. Medical 0.1-20 Branch mg-mcg per tablet levonorgest 2020-0 Yes [id number] 1{tbl} Take 1 [facility] rel-ethinyl 5-11 tablet by ity of estradiol 00:00: mouth [place] (SRONYX) 00 daily. Medical 0.1-20 Branch mg-mcg per tablet levonorgest 2020-0 2020- No [id number] 1{tbl} Take 1 [facility] rel-ethinyl 5-11 07-21 tablet by it y of estradiol 00:00: 00:00 mouth [place] (SRONYX) 00 :00 daily. Medical 0.1-20 Branch mg-mcg per tablet levonorgest 2020-0 2020- No [id number] 1{tbl} Take 1 Univers rel-ethinyl 5-11 07-21 [...] Branch acetaminoph 2019-2019- No 1{tbl} 1 tablet, [facility] en-codeine 06-26 Oral, ity of (TYLENOL 01:45: 01:56 ONCE, 1 [place] #3) 300-30 00 :00 dose, [facility] tablet 1 06/26/19 at Br anch tablet 2044, SHAYNA ketorolac 2019- No 30mg 30 mg, Unive rs (TORADOL) 06-26 Intramuscu ity of injection 00:30: 00:37 lar, ONCE, [place] 30 mg 00 :00 1 dose, [facility] Branch 06/26/19 at 1930, SHAYNA
Fa culty member approving Restricted medication : LORY PIMENTEL I naproxen 2019-0 Yes [id number] 500mg Take 1 [place] (NAPROSYN) 4-19 tablet by ity of 500 mg 00:00: mouth 2 [place] tablet 00 (two) Medical times Branch daily with meals. naproxen 2020-0 Yes [id number] 500mg Take 1 [place] (NAPROSYN) 4-19 tablet by ity of 500 mg 00:00: mouth 2 [place] tablet 00 (two) Medical times Branch daily with meals. naproxen 2020-0 Yes [id number] 500mg Take 1 [facility] [place] (NAPROSYN) 4-19 tablet by ity of 500 mg 00:00: mouth 2 [place] tablet 00 (two) Medical times Branch daily with meals. naproxen 2020-0 Yes [id number] 500mg Take 1 [facility] [place] (NAPROSYN) 4-19 tablet by ity of 500 mg 00:00: mouth 2 [place] tablet 00 (two) Medical times Branch daily with meals. naproxen 2020-0 Yes [id number] 500mg Take 1 [facility] [place] (NAPROSYN) 4-19 tablet by ity of 500 mg 00:00: mouth 2 [place] tablet 00 (two) Medical times Branch daily with meals. naproxen 2020-0 Yes [id number] 500mg Take 1 [place] (NAPROSYN) 4-19 tablet by ity of 500 mg 00:00: mouth 2 [place] tablet 00 (two) Medical times Branch daily with meals. naproxen 2020-0 Yes [id number] 500mg Take 1 [facility] [place] (NAPROSYN) 4-19 tablet by ity of 500 mg 00:00: mouth 2 [place] tablet 00 (two) Medical times Branch daily with meals. naproxen 2019-0 2020- No [id number] 500mg Take 1 U nivers (NAPROSYN) 4-19 07-21 tablet by ity of 500 mg 00:00: 00:00 mouth 2 [place] tablet 00 :00 (two) Medical times Branch daily with meals. naproxen 2019- 2020- No [id number] 500mg Take 1 U nivers (NAPROSYN) 4-19 07-21 tablet by ity of 500 mg 00:00: 00:00 mouth 2 [place] tablet 00 :00 (two) Medical times Branch daily with meals. cephALEXin 2019- 2020- No [id number] 500mg Take 1 Univers (KEFLEX) 4-19 04-30 capsule by ity of 500 mg 00:00: 04:59 mouth 2 [place] capsule 00 :00 (two) Medical times Branch daily for 10 days. azithromyci 2019- 2020- No [id number] 1000mg Take 2 Univers n 3-12 03-13 tablets by ity of (ZITHROMAX) 00:00: 04:59 mouth once [place] 500 mg 00 :00 now for 1 Medical tablet dose. Branch Nitrofurant 2019- 2020- No [id number] 100mg Take 1 Univers oin&Nit. 3-10 03-18 capsule by ity of Macrocryst 00:00: 04:59 mouth 2 [place] as (MACROBID) 00 :00 (two) Medical 100 mg times Branch capsule daily for 7 days. Nitrofurant 2019- 2020- No [id number] 100mg Take 1 [facility] oin&Nit. 3-10 03-18 capsule by ity of Macrocryst 00:00: 04:59 mouth 2 [place] as (MACROBID) 00 :00 (two) Medical 100 mg times Branch capsule daily for 7 days. Nitrofurant 2019-0 2020- No [id number] 100mg Take 1 [facility] oin&Nit. 3-10 -18 capsule by ity of Macrocryst 00:00: 04:59 mouth 2 [place] as (MACROBID) 00 :00 (two) Medical 100 mg times Branch capsule daily for 7 days. Nitrofurant 2020-0 2020- No [id number] 100mg Take 1 Univers oin&Nit. 3-10 -18 [...] at Branch 1415, Routine levETIRAcet 2020-0 Yes [id number] 1500mg Take 2 Univers am (KEPPRA) 2-12 tablets by it y of 750 mg 00:00: mouth 2 [place] tablet 00 (two) Medical times Branch daily. levETIRAcet 2020-0 Yes [id number] 1500mg Take 2 Univers am (KEPPRA) 2-12 tablets by it y of 750 mg 00:00: mouth 2 [place] tablet 00 (two) Medical times Branch daily. levETIRAcet 2020-0 Yes [id number] 1500mg Take 2 Univers am (KEPPRA) 2-12 tablets by it y of 750 mg 00:00: mouth 2 [place] tablet 00 (two) Medical times Branch daily. levETIRAcet 2020-0 Yes [id number] 1500mg Take 2 Univers am (KEPPRA) 2-12 tablets by it y of 750 mg 00:00: mouth 2 [place] tablet 00 (two) Medical times Branch daily. levETIRAcet 2020-0 Yes [id number] 1500mg Take 2 Univers am (KEPPRA) 2-12 tablets by it y of 750 mg 00:00: mouth 2 [place] tablet 00 (two) Medical times Branch daily. levETIRAcet 2020-0 Yes [id number] 1500mg Take 2 Univers am (KEPPRA) 2-12 tablets by it y of 750 mg 00:00: mouth 2 [place] tablet 00 (two) Medical times Branch daily. levETIRAcet 2020-0 Yes [id number] 1500mg Take 2 Univers am (KEPPRA) 2-12 tablets by it y of 750 mg 00:00: mouth 2 [place] tablet 00 (two) Medical times Branch daily. levETIRAcet 2020-0 Yes [id number] 1500mg Take 2 Univers am (KEPPRA) 2-12 tablets by it y of 750 mg 00:00: mouth 2 [place] tablet 00 (two) Medical times Branch daily. levETIRAcet 2020-0 Yes [id number] 1500mg Take 2 Univers am (KEPPRA) 2-12 tablets by it y of 750 mg 00:00: mouth 2 [place] tablet 00 (two) Medical times Branch daily. levETIRAcet 2020-0 Yes [id number] 1500mg Take 2 Univers am (KEPPRA) 2-12 tablets by it y of 750 mg 00:00: mouth 2 [place] tablet 00 (two) Medical times Branch daily. levETIRAcet 2020-0 Yes [id number] 1500mg Take 2 Univers am (KEPPRA) 2-12 tablets by it y of 750 mg 00:00: mouth 2 [place] tablet 00 (two) Medical times Branch daily. levETIRAcet 2020-0 Yes [id number] 1500mg Take 2 Univers am (KEPPRA) 2-12 tablets by it y of 750 mg 00:00: mouth 2 [place] tablet 00 (two) Medical times Branch daily. levETIRAcet 2020-0 Yes [id number] 1500mg Take 2 Univers am (KEPPRA) 2-12 tablets by it y of 750 mg 00:00: mouth 2 [place] tablet 00 (two) Medical times Branch daily. levETIRAcet 2020-0 Yes [id number] 1500mg Take 2 Univers am (KEPPRA) 2-12 tablets by it y of 750 mg 00:00: mouth 2 [place] tablet 00 (two) Medical times Branch daily. levETIRAcet 2020-0 Yes [id number] 1500mg Take 2 Univers am (KEPPRA) 2-12 tablets by it y of 750 mg 00:00: mouth 2 [place] tablet 00 (two) Medical times Branch daily. levETIRAcet 2020-0 Yes [id number] 1500mg Take 2 Univers am (KEPPRA) 2-12 tablets by it y of 750 mg 00:00: mouth 2 [place] tablet 00 (two) Medical times Branch daily. levETIRAcet 2020-0 Yes [id number] 1500mg Take 2 Univers am (KEPPRA) 2-12 tablets by it y of 750 mg 00:00: mouth 2 [place] tablet 00 (two) Medical times Branch daily. levETIRAcet 2020-0 Yes [id number] 1500mg Take 2 Univers am (KEPPRA) 2-12 tablets by it y of 750 mg 00:00: mouth 2 [place] tablet 00 (two) Medical times Branch daily. levETIRAcet 2020-0 Yes [id number] 1500mg Take 2 Univers am (KEPPRA) 2-12 tablets by it y of 750 mg 00:00: mouth 2 [place] tablet 00 (two) Medical times Branch daily. levETIRAcet 2020-0 Yes [id number] 1500mg Take 2 Univers am (KEPPRA) 2-12 tablets by it y of 750 mg 00:00: mouth 2 [place] tablet 00 (two) Medical times Branch daily. levETIRAcet 2020-0 Yes [id number] 1500mg Take 2 Univers am (KEPPRA) 2-12 tablets by it y of 750 mg 00:00: mouth 2 [place] tablet 00 (two) Medical times Branch daily. levETIRAcet 2020-0 Yes [id number] 1500mg Take 2 Univers am (KEPPRA) 2-12 tablets by it y of 750 mg 00:00: mouth 2 [place] tablet 00 (two) Medical times Branch daily. levETIRAcet 2020-0 Yes [id number] 1500mg Take 2 Univers am (KEPPRA) 2-12 tablets by it y of 750 mg 00:00: mouth 2 [place] tablet 00 (two) Medical times Branch daily. levETIRAcet 2020-0 2020- No [id number] 1500mg Take 2 Univers am (KEPPRA) 2-12 -21 tablets by i ty of 750 mg 00:00: 00:00 mouth 2 [place] tablet 00 :00 (two) Medical times Branch daily. levETIRAcet 2020-0 2020- No [id number] 1500mg Take 2 Univers am (KEPPRA) 2-12 -21 tablets by i ty of 750 mg 00:00: 00:00 mouth 2 [place] tablet 00 :00 (two) Medical times Branch daily. azithromyci 2020-0 2020- No [id number] 1000mg Take 2 Univers n 500 mg -14 -16 tablets by ity of tablet 00:00: 05:59 mouth [place] 00 :00 daily for Medical 1 day. Luis azrosayci 2020-0 2020- No [id number] 1000mg Take 2 Univers n 500 mg -14 -16 tablets by ity of tablet 00:00: 05:59 mouth [place] 00 :00 daily for Medical 1 day. [place] NUVARING Yes [id number] 1{each} Insert 1 [facility] 0.12-0.015 4-15 Each into ity of mg/24 hr 00:00: vagina [place] vaginal 00 once every Medica l insert month. Branch Insert vaginally and leave in place for 3 consecutiv e weeks, then remove for 1 week. NUVARING Yes [id number] 1{each} Insert 1 Univers 0.12-0.015 4-15 Each into ity of mg/24 hr 00:00: vagina [place] vaginal 00 once every Medica l insert month. Branch Insert vaginally and leave in place for 3 consecutiv e weeks, then remove for 1 week. NUVARING Yes [id number] 1{each} Insert 1 [facility] 0.12-0.015 4-15 Each into ity of mg/24 hr 00:00: vagina [place] vaginal 00 once every Medica l insert month. Branch Insert vaginally and leave in place for 3 consecutiv e weeks, then remove for 1 week. NUVARING Yes [id number] 1{each} Insert 1 Univers 0.12-0.015 4-15 Each into ity of mg/24 hr 00:00: vagina [place] vaginal 00 once every Medica l insert month. Branch Insert vaginally and leave in place for 3 consecutiv e weeks, then remove for 1 week. NUVARING Yes [id number] 1{each} Insert 1 [facility] 0.12-0.015 4-15 Each into ity of mg/24 hr 00:00: vagina [place] vaginal 00 once every Medica l insert month. Branch Insert vaginally and leave in place for 3 consecutiv e weeks, then remove for 1 week. NUVARING Yes [id number] 1{each} Insert 1 [facility] 0.12-0.015 4-15 Each into ity of mg/24 hr 00:00: vagina [place] vaginal 00 once every Medica l insert month. Branch Insert vaginally and leave in place for 3 consecutiv e weeks, then remove for 1 week. NUVARING 2019- No [id number] 1{each} Insert 1 [facility] 0.12-0.015 4-15 03-10 Each into ity of mg/24 hr 00:00: 00:00 vagina [place] vaginal 00 :00 once every Medica l insert month. Branch Insert vaginally and leave in place for 3 consecutiv e weeks, then remove for 1 week. NUVARING 2019- No [id number] 1{each} Insert 1 Univers 0.12-0.015 -15 -10 Each into ity of mg/24 hr 00:00: 00:00 vagina [place] vaginal 00 :00 once every Medica l insert month. Branch Insert vaginally and leave in place for 3 consecutiv e weeks, then remove for 1 week. sulfamethox 2019-0 Yes [id number] 1{tbl} Take 1 Univers azole-trime 3-29 [id number] tablet by i ty of thoprim 00:00: mouth [place] 800-160 mg 00 every 12 Medic al per tablet (twelve) Branc h hours. traMADOL 2019-0 Yes [id number] 50mg Take 1 Univers (ULTRAM) 50 3-29 [id number] tablet by i ty of mg tablet 00:00: mouth [place] 00 every 6 Medical (six) Branch hours as needed for Pain (scale 4-6). sulfamethox 2019-0 Yes [id number] 1{tbl} Take 1 [facility] azole-trime 3-29 [id number] tablet by i ty of thoprim 00:00: mouth [place] 800-160 mg 00 every 12 Medic al per tablet (twelve) Branc h hours. traMADOL 2019-0 Yes [id number] 50mg Take 1 [facility] (ULTRAM) 50 3-29 [id number] tablet by i ty of mg tablet 00:00: mouth [place] 00 every 6 Medical (six) Branch hours as needed for Pain (scale 4-6). sulfamethox 2019-0 Yes [id number] 1{tbl} Take 1 [facility] azole-trime 3-29 [id number] tablet by i ty of thoprim 00:00: mouth [place] 800-160 mg 00 every 12 Medic al per tablet (twelve) Branc h hours. traMADOL 2019-0 Yes [id number] 50mg Take 1 Univers (ULTRAM) 50 3-29 [id number] tablet by i ty of mg tablet 00:00: mouth [place] 00 every 6 Medical (six) Branch hours as needed for Pain (scale 4-6). sulfamethox 2019-0 Yes [id number] 1{tbl} Take 1 [facility] azole-trime 3-29 [id number] tablet by i ty of thoprim 00:00: mouth [place] 800-160 mg 00 every 12 Medic al per tablet (twelve) Branc h hours. traMADOL 2019-0 Yes [id number] 50mg Take 1 Univers (ULTRAM) 50 3-29 [id number] tablet by i ty of mg tablet 00:00: mouth [place] 00 every 6 Medical (six) Branch hours as needed for Pain (scale 4-6). sulfamethox 2019-0 Yes [id number] 1{tbl} Take 1 [facility] azole-trime 3-29 [id number] tablet by i ty of thoprim 00:00: mouth [place] 800-160 mg 00 every 12 Medic al per tablet (twelve) Branc h hours. traMADOL 2019-0 Yes [id number] 50mg Take 1 [facility] (ULTRAM) 50 3-29 [id number] tablet by i ty of mg tablet 00:00: mouth [place] 00 every 6 Medical (six) Branch hours as needed for Pain (scale 4-6). sulfamethox 2019-0 Yes [id number] 1{tbl} Take 1 [facility] azole-trime 3-29 [id number] tablet by i ty of thoprim 00:00: mouth [place] 800-160 mg 00 every 12 Medic al per tablet (twelve) Branc h hours. traMADOL 2019-0 Yes [id number] 50mg Take 1 Univers (ULTRAM) 50 3-29 [id number] tablet by i ty of mg tablet 00:00: mouth [place] 00 every 6 Medical (six) Branch hours as needed for Pain (scale 4-6). sulfamethox 2019-0 2020- No [id number] 1{tbl} Take 1 [facility] azole-trime 3-29 03-10 [id number] tablet by ity of thoprim 00:00: 00:00 mouth [place] 800-160 mg 00 :00 every 12 Medic al per tablet (twelve) Branc h hours. traMADOL 2019-0 2020- No [id number] 50mg Take 1 Univers (ULTRAM) 50 06-04- [id number] tablet by ity of mg tablet 00:00: 00:00 mouth [place] 00 :00 every 6 Medical (six) Branch hours as needed for Pain (scale 4-6). sulfamethox 2019- No [id number] 1{tbl} Take 1 Univers azole-trime 06-04- [id number] tablet by ity of thoprim 00:00: 00:00 mouth [place] 800-160 mg 00 :00 every 12 Medic al per tablet (twelve) Branc h hours. traMADOL 2019- No [id number] 50mg Take 1 Univers (ULTRAM) 50 06-04 [id number] tablet by ity of mg tablet 00:00: 00:00 mouth [place] 00 :00 every 6 Medical (six) Branch hours as needed for Pain (scale 4-6). Immunizations Ordered Filled Immunization Date Status Comments [facility] e Immunization Name Name HPV9 2019-12-30 Completed University of 00:00: [facility] HPV9 2019-12-30 Completed University of 00:00: [facility] HPV9 2019-12-30 Completed University of 00:00:00 [facility] HPV9 2019-12-30 Completed University of 00:00:00 [facility] HPV9 2019-12-30 Completed University of 00:00:00 [facility] HPV9 2019-12-30 Completed University of 00:00:00 [facility] HPV9 2019-12-30 Completed University of 00:00:00 [facility] HPV9 2019-12-30 Completed University of 00:00:00 [facility] HPV9 2019-12-30 Completed University of 00:00:00 [facility] HPV9 2019-12-30 Completed University of 00:00:00 [facility] HPV9 2019-12-30 Completed University of 00:00:00 [facility] HPV9 2019-12-30 Completed University of 00:00:00 [facility] HPV9 2019-12-30 Completed University of 00:00:00 [facility] HPV9 2019-12-30 Completed University of 00:00:00 [facility] HPV9 2019-12-30 Completed University of 00:00:00 [facility] HPV9 2019-12-30 Completed University of 00:00:00 [facility] HPV9 2019-12-30 Completed University of 00:00:00 [...] Branch HPV9 2019-09-27 Completed University of 00:00:00 [place] [facility] HPV9 2019-09-27 Completed University of 00:00:00 [place] [facility] HPV9 2019-09-27 Completed University of 00:00:00 [place] [facility] HPV9 2019-09-27 Completed University of 00:00:00 [place] [facility] HPV9 2019-09-27 Completed University of 00:00:00 [place] [facility] HPV9 2019-09-27 Completed University of 00:00:00 [place] [facility] HPV9 2019-09-27 Completed University of 00:00:00 [place] [facility] HPV9 2019-09-27 Completed University of 00:00:00 [place] [facility] HPV9 2019-09-27 Completed University of 00:00:00 [place] [facility] HPV9 2019-09-27 Completed University of 00:00:00 [place] [facility] HPV9 2019-09-27 Completed University of 00:00:00 [place] [facility] HPV9 2019-09-27 Completed University of 00:00:00 [place] [facility] HPV9 2019-09-27 Completed University of 00:00:00 [place] [facility] HPV9 2019-09-27 Completed University of 00:00:00 [place] [facility] HPV9 2019-09-27 Completed University of 00:00:00 [place] [facility] HPV9 2019-09-27 Completed University of 00:00:00 [place] [facility] HPV9 2019-09-27 Completed University of 00:00:00 [place] [facility] HPV9 2019-09-27 Completed University of 00:00:00 [place] [facility] HPV9 2019-09-27 Completed University of 00:00:00 [place] [facility] HPV9 2019-09-27 Completed University of 00:00:00 [place] [facility] HPV9 2019-09-27 Completed University of 00:00:00 [place] [facility] HPV9 2019-09-27 Completed University of 00:00:00 [place] [facility] HPV9 2019-09-27 Completed University of 00:00:00 [place] [facility] HPV9 2019-09-27 Completed University of 00:00:00 [place] [facility] HPV9 2019-09-27 Completed University of 00:00:00 [place] [facility] HPV9 2019-09-27 Completed University of 00:00:00 [place] [facility] HPV9 2019-09-27 Completed University of 00:00:00 [place] [facility] HPV9 2019-09-27 Completed University of 00:00:00 [place] [facility] HPV9 2019-09-27 Completed University of 00:00:00 [place] [facility] HPV9 2019-09-27 Completed University of 00:00:00 [place] [facility] HPV9 2019-09-27 Completed University of 00:00:00 [place] [facility] HPV9 2019-09-27 Completed University of 00:00:00 [place] [facility] HPV9 2019-09-27 Completed University of 00:00:00 [place] [facility] HPV9 2019-09-27 Completed University of 00:00:00 [place] [facility] HPV9 2019-09-27 Completed University of 00:00:00 [place] [facility] HPV9 2019-09-27 Completed University of 00:00:00 [place] [facility] HPV9 2019-09-27 Completed University of 00:00:00 [place] [facility] HPV9 2019-09-27 Completed University of 00:00:00 [place] [facility] HPV9 2019-09-27 Completed University of 00:00:00 [place] [facility] HPV9 2019-09-27 Completed University of 00:00:00 [place] [facility] HPV9 2019-09-27 Completed University of 00:00:00 [place] [facility] HPV9 2019-09-27 Completed University of 00:00:00 [place] [facility] HPV9 2019-09-27 Completed University of 00:00:00 [place] [facility] HPV9 2019-09-27 Completed University of 00:00:00 [place] [facility] HPV9 2019-09-27 Completed University of 00:00:00 [place] [facility] HPV9 2019-09-27 Completed University of 00:00:00 [place] [facility] HPV9 2019-09-27 Completed University of 00:00:00 [place] [facility] HPV9 2019-09-27 Completed University of 00:00:00 [place] [facility] HPV9 2019-09-27 Completed University of 00:00:00 [place] [facility] HPV9 2019-09-27 Completed University of 00:00:00 [place] [facility] HPV9 2019-09-27 Completed University of 00:00:00 [place] [facility] HPV9 2019-09-27 Completed University of 00:00:00 [place] [facility] HPV9 2019-05-17 Completed University of 00:00:00 [place] [facility] HPV9 2019-05-17 Completed University of 00:00:00 [place] [facility] HPV9 2019-05-17 Completed University of 00:00:00 [place] [facility] HPV9 2019-05-17 Completed University of [...] Branch HPV9 2019-05-17 Completed University of 00:00:00 [facility] Branch HPV9 2019-05-17 Completed University of 00:00:00 [place] [facility] HPV9 2019-05-17 Completed University of 00:00:00 [place] [facility] HPV9 2019-05-17 Completed [facility] 00:[facility]:00 [facility] [facility] HPV9 2019-05-17 Completed [facility] 00:00:00 [facility] HPV9 2019-05-17 Completed [facility] 00:00:00 [facility] HPV9 2019-05-17 Completed [facility] 00:00:00 [facility] HPV9 2019-05-17 Completed [facility] 00:00:00 [facility] HPV9 2019-05-17 Completed [facility] 00:00:00 [facility] HPV9 2019-05-17 Completed [facility] 00:00:00 [facility] HPV9 2019-05-17 Completed [facility] 00:00:00 [facility] HPV9 2019-05-17 Completed [facility] 00:00:00 [facility] HPV9 2019-05-17 Completed [facility] 00:00:00 [facility] HPV9 2019-05-17 Completed [facility] 00:00:00 [facility] HPV9 2019-05-17 Completed [facility] 00:00:00 [facility] HPV9 2019-05-17 Completed [facility] 00:00:00 [facility] TDAP (ADACEL) 2018-02-15 Completed [facility] of VACCINE 00:00:00 [facility] TDAP (ADACEL) 2018-02-15 Completed [facility] VACCINE 00:00:00 [facility] TDAP (ADACEL) 2018-02-15 Completed [facility] VACCINE 00:00:00 [facility] TDAP (ADACEL) 2018-02-15 Completed [facility] VACCINE 00:00:00 [facility] TDAP (ADACEL) 2018-02-15 Completed [facility] VACCINE 00:00:00 [facility] TDAP (ADACEL) 2018-02-15 Completed [facility] VACCINE 00:00:00 [facility] TDAP (ADACEL) 2018-02-15 Completed [facility] VACCINE 00:00:00 [facility] TDAP (ADACEL) 2018-02-15 Completed [facility] VACCINE 00:00:00 [facility] TDAP (ADACEL) 2018-02-15 Completed [facility] VACCINE 00:00:00 [facility] TDAP (ADACEL) 2018-02-15 Completed [facility] [...] (ADACEL) 2018-02-15 Completed [facility] VACCINE 00:00:00 [facility] TDAP (ADACEL) 2018-02-15 Completed [facility] VACCINE 00:00:00 [facility] TDAP (ADACEL) 2018-02-15 Completed [facility] VACCINE 00:00:00 [facility] TDAP (ADACEL) 2018-02-15 Completed [facility] VACCINE 00:00:00 [facility] TDAP (ADACEL) 2018-02-15 Completed [facility] VACCINE 00:00:00 [facility] TDAP (ADACEL) 2018-02-15 Completed [facility] VACCINE 00:00:00 [facility] TDAP (ADACEL) 2018-02-15 Completed [facility] VACCINE 00:00:00 [facility] TDAP (ADACEL) 2018-02-15 Completed [facility] VACCINE 00:00:00 [facility] TDAP (ADACEL) 2018-02-15 Completed [facility] [...] (ADACEL) 2018-02-15 Completed [facility] VACCINE 00:00:00 [facility] TDAP (ADACEL) 2018-02-15 Completed [facility] VACCINE 00:00:00 [facility] TDAP (ADACEL) 2018-02-15 Completed [facility] VACCINE 00:00:00 [facility] TDAP (ADACEL) 2018-02-15 Completed [facility] VACCINE 00:00:00 [facility] TDAP (ADACEL) 2018-02-15 Completed [facility] VACCINE 00:00:00 [facility] TDAP (ADACEL) 2018-02-15 Completed [facility] VACCINE 00:00:00 [facility] TDAP (ADACEL) 2018-02-15 Completed [facility] VACCINE 00:00:00 [facility] TDAP (ADACEL) 2018-02-15 Completed [facility] VACCINE 00:00:00 [facility] TDAP (ADACEL) 2018-02-15 Completed [facility] VACCINE 00:00:00 [facility] TDAP (ADACEL) 2018-02-15 Completed [facility] VACCINE 00:00:00 [facility] TDAP (ADACEL) 2018-02-15 Completed [facility] VACCINE 00:00:00 [facility] TDAP (ADACEL) 2018-02-15 Completed [facility] VACCINE 00:00:00 [facility] TDAP (ADACEL) 2018-02-15 Completed [facility] VACCINE 00:00:00 [facility] TDAP (ADACEL) 2018-02-15 Completed [facility] VACCINE 00:00:00 [facility] TDAP (ADACEL) 2018-02-15 Completed [facility] VACCINE 00:00:00 [facility] TDAP (ADACEL) 2018-02-15 Completed [facility] VACCINE 00:00:00 [facility] TDAP (ADACEL) 2018-02-15 Completed [facility] VACCINE 00:00:00 [facility] TDAP (ADACEL) 2018-02-15 Completed [facility] VACCINE 00:00:00 [facility] TDAP (ADACEL) 2018-02-15 Completed [facility] VACCINE 00:00:00 [facility] TDAP (ADACEL) 2018-02-15 Completed [facility] VACCINE 00:00:00 [facility] TDAP (ADACEL) 2018-02-15 Completed [facility] VACCINE 00:00:00 [facility] TDAP (ADACEL) 2018-02-15 Completed [facility] VACCINE 00:00:00 [facility] TDAP (ADACEL) 2018-02-15 Completed [facility] VACCINE 00:00:00 [facility] TDAP (ADACEL) 2018-02-15 Completed [facility] VACCINE 00:00:00 [facility] TDAP (ADACEL) 2018-02-15 Completed [facility] VACCINE 00:00:00 [facility] TDAP (ADACEL) 2018-02-15 Completed [facility] VACCINE 00:00:00 [facility] TDAP (ADACEL) 2018-02-15 Completed [facility] VACCINE 00:00:00 [facility] TDAP (ADACEL) 2018-02-15 Completed [facility] VACCINE 00:00:00 [facility] TDAP (ADACEL) 2018-02-15 Completed [facility] VACCINE 00:00:00 [facility] TDAP (ADACEL) 2018-02-15 Completed [facility] VACCINE 00:00:00 [facility] TDAP (ADACEL) 2018-02-15 Completed [facility] VACCINE 00:00:00 [facility] TDAP (ADACEL) 2018-02-15 Completed [facility] VACCINE 00:00:00 [facility] TDAP (ADACEL) 2018-02-15 Completed [facility] VACCINE 00:00:00 [facility] TDAP (ADACEL) 2018-02-15 Completed [facility] VACCINE 00:00:00 [facility] TDAP (ADACEL) 2018-02-15 Completed [facility] VACCINE 00:00:00 [facility] TDAP (ADACEL) 2018-02-15 Completed [facility] VACCINE 00:00:00 [facility] TDAP (ADACEL) 2018-02-15 Completed [facility] VACCINE 00:00:00 [facility] TDAP (ADACEL) 2018-02-15 Completed [facility] VACCINE 00:00:00 [facility] TDAP (ADACEL) 2018-02-15 Completed [facility] VACCINE 00:00:00 [facility] TDAP (ADACEL) 2018-02-15 Completed [facility] VACCINE 00:00:00 [facility] TDAP (ADACEL) 2018-02-15 Completed [facility] VACCINE 00:00:00 [facility] TDAP (ADACEL) 2018-02-15 Completed [facility] VACCINE 00:00:00 [facility] TDAP (ADACEL) 2018-02-15 Completed [facility] VACCINE 00:00:00 [facility] TDAP (ADACEL) 2018-02-15 Completed [facility] VACCINE 00:00:00 [facility] TDAP (ADACEL) 2018-02-15 Completed [facility] VACCINE 00:00:00 [facility] Influenza Virus 2017-12-14 Completed [facility]it y of Vaccine [facility] IM 3+ 00:00:00 [facility] Influenza Virus 2017-12-14 Completed [facility] y of [facility]ine [facility] IM 3+ 00:00:00 [facility] Influenza Virus 2017-12-14 Completed [facility] y of [facility] 3+ 00:00:00 [facility] Influenza Virus 2017-12-14 Completed [facility] y of [facility] IM 3+ 00:00:00 [facility] Influenza Virus 2017-12-14 Completed [facility] y of [facility] 3+ 00:00:00 [facility] Influenza Virus 2017-12-14 Completed [facility] y of [facility]ine [facility] IM 3+ 00:00:00 [facility] Influenza Virus 2017-12-14 Completed [facility] y of [facility] IM 3+ 00:00:00 [facility] Influenza Virus 2017-12-14 Completed [facility] 3+ 00:00:00 [facility] Influenza Virus 2017-12-14 Completed [facility] of [facility] IM 3+ 00:00:00 [facility] Influenza Virus 2017-12-14 Completed [facility] 3+ 00:00:00 [facility] Influenza Virus 2017-12-14 Completed [facility] IM 3+ 00:00:00 [facility] Influenza Virus 2017-12-14 Completed [facility] y of [facility] IM 3+ 00:00:00 [facility] Influenza Virus 2017-12-14 Completed [facility] y of [facility] 3+ 00:00:00 [facility] Influenza Virus 2017-12-14 Completed [facility] y of [facility]ine [facility] IM 3+ 00:00:00 [facility] Influenza Virus 2017-12-14 Completed [facility] y of [facility]ine [facility] IM 3+ 00:00:00 [facility] Influenza Virus 2017-12-14 Completed [facility] y of [facility]ine [facility] IM 3+ 00:00:00 [facility] Influenza Virus 2017-12-14 Completed [facility] y of [facility]ine [facility] IM 3+ 00:00:00 [facility] Influenza Virus 2017-12-14 Completed [facility] y of Vaccine [facility] IM 3+ 00:00:00 [facility] Influenza Virus 2017-12-14 Completed [facility] y of Vaccine [facility] IM 3+ 00:00:00 [facility] Influenza Virus 2017-12-14 Completed [facility] y of [facility]ine [facility] IM 3+ 00:00:00 [facility] Influenza Virus 2017-12-14 Completed [facility] of [facility]ine [facility] IM 3+ 00:00:00 [facility] Influenza Virus 2017-12-14 Completed [facility] of [facility]ine [facility] IM 3+ 00:00:00 [facility] Influenza Virus 2017-12-14 Completed [facility] of [facility]ine [facility] IM 3+ 00:00:00 [facility] Influenza Virus 2017-12-14 Completed [facility] of [facility]ine [facility] IM 3+ 00:00:00 [facility] Influenza Virus 2017-12-14 Completed [facility] of [facility] IM 3+ 00:00:00 [facility] Influenza Virus 2017-12-14 Completed [facility] of [facility]ine [facility] IM 3+ 00:00:00 [facility] Influenza Virus 2017-12-14 Completed [facility]ine [facility] IM 3+ 00:00:00 [facility] Influenza Virus 2017-12-14 Completed [facility] of [facility] IM 3+ 00:00:00 [facility] Influenza Virus 2017-12-14 Completed [facility] IM 3+ 00:00:00 [facility] Influenza Virus 2017-12-14 Completed [facility] of [facility] IM 3+ 00:00:00 [facility] Influenza Virus 2017-12-14 Completed [facility] of [facility]ine [facility] IM 3+ 00:00:00 [facility] Influenza Virus 2017-12-14 Completed [facility] y of [facility]ine [facility] IM 3+ 00:00:00 [facility] Influenza Virus 2017-12-14 Completed [facility] of [facility]ine [facility] IM 3+ 00:00:00 [facility] Influenza Virus 2017-12-14 Completed [facility] of Vaccine [facility] IM 3+ 00:00:00 [facility] Influenza Virus 2017-12-14 Completed [facility] y of [facility]ine [facility] IM 3+ 00:00:00 [facility] Influenza Virus 2017-12-14 Completed [facility] of [facility]ine [facility] IM 3+ 00:00:00 [facility] Influenza Virus 2017-12-14 Completed [facility] y of [facility]ine [facility] IM 3+ 00:00:00 [facility] Influenza Virus 2017-12-14 Completed [facility] y of [facility]ine [facility] IM 3+ 00:00:00 [facility] Influenza Virus 2017-12-14 Completed [facility] of Vaccine [facility] IM 3+ 00:00:00 [facility] Influenza Virus 2017-12-14 Completed [facility] of [facility]ine [facility] IM 3+ 00:00:00 [facility] Influenza Virus 2017-12-14 Completed [facility] of [facility]ine [facility] IM 3+ 00:00:00 [facility] Influenza Virus 2017-12-14 Completed [facility] of [facility]ine [facility] IM 3+ 00:00:00 [facility] Influenza Virus 2017-12-14 Completed [facility]ine [facility] IM 3+ 00:00:00 [facility] Influenza Virus 2017-12-14 Completed [facility]ine [facility] IM 3+ 00:00:00 [facility] Influenza Virus 2017-12-14 Completed [facility]ine [facility] IM 3+ 00:00:00 [facility] Influenza Virus 2017-12-14 Completed [facility] IM 3+ 00:00:00 [facility] Influenza Virus 2017-12-14 Completed [facility] of Vaccine [facility] IM 3+ 00:00:00 [facility] Influenza Virus 2017-12-14 Completed [facility] Vaccine [facility] IM 3+ 00:00:00 [facility] Influenza Virus 2017-12-14 Completed [facility] y of [facility]ine [facility] IM 3+ 00:00:00 [facility] Influenza Virus 2017-12-14 Completed [facility] of [facility]ine [facility] IM 3+ 00:00:00 [facility] Influenza Virus 2017-12-14 Completed [facility]ine [facility] IM 3+ 00:00:00 [facility] Influenza Virus 2017-12-14 Completed [facility] of Vaccine [facility] IM 3+ 00:00:00 [facility] Influenza Virus 2017-12-14 Completed [facility] y of Vaccine [facility] IM 3+ 00:00:00 [facility] Influenza Virus 2017-12-14 Completed [facility] y of Vaccine [facility] IM 3+ 00:00:00 [facility] Influenza Virus 2017-12-14 Completed [facility] y of Vaccine [facility] IM 3+ 00:00:00 [facility] Influenza Virus 2017-12-14 Completed [facility] of Vaccine [facility] IM 3+ 00:00:00 [facility] Influenza Virus 2017-12-14 Completed [facility] y of Vaccine [facility] IM 3+ 00:00:00 [facility] Influenza Virus 2017-12-14 Completed [facility] y of [facility]ine [facility] IM 3+ 00:00:00 [facility] Influenza Virus 2017-12-14 Completed [facility]ine [facility] IM 3+ 00:00:00 [facility] Influenza Virus 2017-12-14 Completed [facility] of Vaccine [facility] IM 3+ 00:00:00 [facility] Influenza Virus 2017-12-14 Completed [facility]ine [facility] IM 3+ 00:00:00 [facility] Influenza Virus 2017-12-14 Completed [facility] of [facility]ine [facility] IM 3+ 00:00:00 [facility] Influenza Virus 2017-12-14 Completed [facility] Vaccine [facility] IM 3+ 00:00:00 [facility] Influenza Virus 2017-12-14 Completed [facility] of Vaccine [facility] IM 3+ 00:00:00 [facility] Influenza Virus 2017-12-14 Completed [facility] y of Vaccine [facility] IM 3+ 00:00:00 [facility] Influenza Virus 2017-12-14 Completed [facility] y of Vaccine [facility] IM 3+ 00:00:00 [facility] Influenza Virus 2017-12-14 Completed [facility] Vaccine [facility] IM 3+ 00:00:00 [facility] Influenza Virus 2017-12-14 Completed [facility] of Vaccine [facility] IM 3+ 00:00:00 [facility] Influenza Virus 2017-12-14 Completed [facility]ine [facility] IM 3+ 00:00:00 [facility] Influenza Virus 2017-12-14 Completed [facility] of Vaccine [facility] IM 3+ 00:00:00 [facility] Influenza Virus 2017-12-14 Completed [facility] of Vaccine [facility] IM 3+ 00:00:00 [facility] Influenza Virus 2017-12-14 Completed [facility] y of Vaccine Quad IM 3+ 00:00:00 [facility] Influenza Virus 2017-12-14 Completed [facility] y of Vaccine [facility] IM 3+ 00:00:00 [facility] Influenza Virus 2017-12-14 Completed [facility] y of Vaccine Quad IM 3+ 00:00:00 [facility] Influenza Virus 2017-12-14 Completed [facility] y of Vaccine Quad IM 3+ 00:00:00 [facility] Influenza Virus 2017-12-14 Completed [facility] y of Vaccine [facility] IM 3+ 00:00:00 [facility] Influenza Virus 2017-12-14 Completed [facility] y of Vaccine Quad IM 3+ 00:00:00 [facility] Influenza Virus 2017-12-14 Completed [facility] y of Vaccine [facility] IM 3+ 00:00:00 [facility] Influenza Virus 2017-12-14 Completed [facility] y of Vaccine [facility] IM 3+ 00:00:00 [facility] Influenza Virus 2017-12-14 Completed [facility] y of Vaccine [facility] IM 3+ 00:00:00 [facility] Influenza Virus 2017-12-14 Completed [facility] y of [facility] 3+ 00:00:00 [facility] Varicella 2016-05-24 Completed [facility] of (varivax)(chicken [...] 2016-05-24 Completed [facility] of (varivax)(chicken 00:00:00 [facility] edical pox) [facility] TDAP 2016-04-03 Completed [facility] 00:00:00 [facility] TDAP 2016-04-03 Completed [facility] 00:00:00 [facility] TDAP 2016-04-03 Completed [facility] 00:00:00 [facility] TDAP 2016-04-03 Completed [facility] 00:00:00 [facility] TDAP 2016-04-03 Completed [facility] 00:00:00 [facility] TDAP 2016-04-03 Completed [facility] 00:00:00 [facility] TDAP 2016-04-03 Completed [facility] 00:00:00 [facility] TDAP 2016-04-03 Completed [facility] 00:00:00 [facility] TDAP 2016-04-03 Completed [facility] 00:00:00 [facility] TDAP 2016-04-03 Completed [facility] 00:00:00 [facility] TDAP 2016-04-03 Completed [facility] 00:00:00 [facility] TDAP 2016-04-03 Completed [facility] 00:00:00 [facility] TDAP 2016-04-03 Completed [facility] 00:00:00 [facility] TDAP 2016-04-03 Completed [facility] 00:00:00 [facility] TDAP 2016-04-03 Completed [facility] 00:00:00 [facility] TDAP 2016-04-03 Completed [facility] 00:00:00 [facility] TDAP 2016-04-03 Completed [facility] 00:00:00 [facility] TDAP 2016-04-03 Completed [facility] 00:00:00 [facility] TDAP 2016-04-03 Completed [facility] 00:00:00 [facility] TDAP 2016-04-03 Completed [facility] 00:00:00 [facility] TDAP 2016-04-03 Completed [facility] 00:00:00 [facility] TDAP 2016-04-03 Completed [facility] 00:00:00 [facility] TDAP 2016-04-03 Completed [facility] 00:00:00 [facility] TDAP 2016-04-03 Completed [facility] 00:00:00 [facility] TDAP 2016-04-03 Completed [facility] 00:00:00 [facility] TDAP 2016-04-03 Completed [facility] 00:00:00 [facility] TDAP 2016-04-03 Completed [facility] 00:00:00 [facility] TDAP 2016-04-03 Completed [facility] 00:00:00 [facility] TDAP 2016-04-03 Completed [facility] 00:00:00 [facility] TDAP 2016-04-03 Completed [facility] 00:00:00 [facility] TDAP 2016-04-03 Completed [facility] 00:00:00 [facility] TDAP 2016-04-03 Completed [facility] 00:00:00 [facility] TDAP 2016-04-03 Completed [facility] 00:00:00 [facility] TDAP 2016-04-03 Completed [facility] 00:00:00 [facility] TDAP 2016-04-03 Completed [facility] 00:00:00 [facility] TDAP 2016-04-03 Completed [facility] 00:00:00 [facility] TDAP 2016-04-03 Completed [facility] 00:00:00 [facility] TDAP 2016-04-03 Completed [facility] 00:00:00 [facility] TDAP 2016-04-03 Completed [facility] 00:00:00 [facility] TDAP 2016-04-03 Completed [facility] 00:00:00 [facility] TDAP 2016-04-03 Completed [facility] 00:00:00 [facility] TDAP 2016-04-03 Completed [facility] 00:00:00 [facility] TDAP 2016-04-03 Completed [facility] 00:00:00 [facility] TDAP 2016-04-03 Completed [facility] 00:00:00 [facility] TDAP 2016-04-03 Completed [facility] 00:00:00 [facility] TDAP 2016-04-03 Completed [facility] 00:00:00 [facility] Tdap 2016-04-03 Completed [facility] 00:00:00 [facility] Tdap 2016-04-03 Completed [facility] 00:00:00 [facility] Tdap 2016-04-03 Completed [facility] 00:00:00 [facility] Tdap 2016-04-03 Completed [facility] 00:00:00 [facility] Tdap 2016-04-03 Completed [facility] 00:00:00 [facility] Tdap 2016-04-03 Completed [facility] 00:00:00 [facility] Tdap 2016-04-03 Completed [facility] 00:00:00 [facility] Tdap 2016-04-03 Completed [facility] 00:00:00 [facility] Tdap 2016-04-03 Completed [facility] 00:00:00 [facility] Tdap 2016-04-03 Completed [facility] 00:00:00 [facility] Tdap 2016-04-03 Completed [facility] 00:00:00 [facility] Tdap 2016-04-03 Completed [facility] 00:00:00 [facility] Tdap 2016-04-03 Completed [facility] 00:00:00 [facility] Tdap 2016-04-03 Completed [facility] 00:00:00 [facility] Tdap 2016-04-03 Completed [facility] 00:00:00 [facility] Tdap 2016-04-03 Completed [facility] 00:00:00 [facility] Tdap 2016-04-03 Completed [facility] 00:00:00 [facility] Tdap 2016-04-03 Completed [facility] 00:00:00 [facility] Tdap 2016-04-03 Completed [facility] 00:00:00 [facility] Tdap 2016-04-03 Completed [facility] 00:00:00 [facility] Tdap 2016-04-03 Completed [facility] 00:00:00 [facility] Tdap 2016-04-03 Completed [facility] 00:00:00 [facility] Tdap 2016-04-03 Completed [facility] 00:00:00 [facility] Tdap 2016-04-03 Completed [facility] 00:00:00 [facility] Tdap 2016-04-03 Completed [facility] 00:00:00 [facility] Tdap 2016-04-03 Completed [facility] 00:00:00 [facility] Tdap 2016-04-03 Completed [facility] 00:00:00 [facility] TDAP 2016-04-03 Completed [facility] 00:00:00 [facility] TDAP 2016-04-03 Completed [facility] 00:00:00 [facility] TDAP 2016-04-03 Completed [facility] 00:00:00 [facility] TDAP 2016-04-03 Completed [facility] 00:00:00 [facility] TDAP 2016-04-03 Completed [facility] 00:00:00 [facility] TDAP 2016-04-03 Completed [facility] 00:00:00 [facility] TDAP 2016-04-03 Completed [facility] 00:00:00 [facility] TDAP 2016-04-03 Completed [facility] 00:00:00 [facility] Rho (d) Immune 2016-03-27 Completed [facility] of Globulin 00:00:00 [facility] Rho (d) Immune 2016-03-27 Completed [facility] of Globulin 00:00:00 [facility] Rho (d) Immune 2016-03-27 Completed [facility] of Globulin 00:00:00 [facility] Rho (d) Immune 2016-03-27 Completed [facility] Globulin 00:00:00 [facility] Rho (d) Immune 2016-03-27 Completed [facility] Globulin 00:00:00 [facility] Rho (d) Immune 2016-03-27 Completed [facility] Globulin 00:00:00 [facility] Rho (d) Immune 2016-03-27 Completed [facility] Globulin 00:00:00 [facility] Rho (d) Immune 2016-03-27 Completed [facility] Globulin 00:00:00 [facility] Rho (d) Immune 2016-03-27 Completed [facility] Globulin 00:00:00 [facility] Rho (d) Immune 2016-03-27 Completed [facility] Globulin 00:00:00 [facility] Rho (d) Immune 2016-03-27 Completed [facility] 00:00:00 [facility] Rho (d) Immune 2016-03-27 Completed [facility] 00:00:00 [facility] Rho (d) Immune 2016-03-27 Completed [facility] 00:00:00 [facility] Rho (d) Immune 2016-03-27 Completed [facility] 00:00:00 [facility] Rho (d) Immune 2016-03-27 Completed [facility] 00:00:00 [facility] Rho (d) Immune 2016-03-27 Completed [facility] 00:00:00 [facility] Rho (d) Immune 2016-03-27 Completed [facility] 00:00:00 [facility] Rho (d) Immune 2016-03-27 Completed [facility] 00:00:00 [facility] Rho (d) Immune 2016-03-27 Completed [facility] 00:00:00 [facility] Rho (d) Immune 2016-03-27 Completed [facility] 00:00:00 [facility] Rho (d) Immune 2016-03-27 Completed [facility] 00:00:00 [facility] Rho (d) Immune 2016-03-27 Completed [facility] 00:00:00 [facility] Rho (d) Immune 2016-03-27 Completed [facility] 00:00:00 [facility] Rho (d) Immune 2016-03-27 Completed [facility] 00:00:00 [facility] Rho (d) Immune 2016-03-27 Completed [facility] 00:00:00 [facility] Rho (d) Immune 2016-03-27 Completed [facility] 00:00:00 [facility] Rho (d) Immune 2016-03-27 Completed [facility] 00:00:00 [facility] Rho (d) Immune 2016-03-27 Completed [facility] 00:00:00 [facility] Rho (d) Immune 2016-03-27 Completed [facility] 00:00:00 [facility] Rho (d) Immune 2016-03-27 Completed [facility] 00:00:00 [facility] Rho (d) Immune 2016-03-27 Completed [facility] 00:00:00 [facility] Rho (d) Immune 2016-03-27 Completed [facility] 00:00:00 [facility] Rho (d) Immune 2016-03-27 Completed [facility] 00:00:00 [facility] Rho (d) Immune 2016-03-27 Completed [facility] 00:00:00 [facility] Rho (d) Immune 2016-03-27 Completed [facility] 00:00:00 [facility] Rho (d) Immune 2016-03-27 Completed [facility] 00:00:00 [facility] Rho (d) Immune 2016-03-27 Completed [facility] 00:00:00 [facility] Rho (d) Immune 2016-03-27 Completed [facility] 00:00:00 [facility] Rho (d) Immune 2016-03-27 Completed [facility] 00:00:00 [facility] Rho (d) Immune 2016-03-27 Completed [facility] 00:00:00 [facility] Rho (d) Immune 2016-03-27 Completed [facility] 00:00:00 [facility] Rho (d) Immune 2016-03-27 Completed [facility] 00:00:00 [facility] Rho (d) Immune 2016-03-27 Completed [facility] 00:00:00 [facility] Rho (d) Immune 2016-03-27 Completed [facility] 00:00:00 [facility] Rho (d) Immune 2016-03-27 Completed [facility] 00:00:00 [facility] Rho (d) Immune 2016-03-27 Completed [facility] 00:00:00 [facility] Rho (d) Immune 2016-03-27 Completed [facility] 00:00:00 [facility] Rho (d) Immune 2016-03-27 Completed [facility] 00:00:00 [facility] Rho (d) Immune 2016-03-27 Completed [facility] 00:00:00 [facility] Rho (d) Immune 2016-03-27 Completed [facility] 00:00:00 [facility] Rho (d) Immune 2016-03-27 Completed [facility] 00:00:00 [facility] Rho (d) Immune 2016-03-27 Completed [facility] 00:00:00 [facility] Rho (d) Immune 2016-03-27 Completed [facility] 00:00:00 [facility] Rho (d) Immune 2016-03-27 Completed [facility] 00:00:00 [facility] Rho (d) Immune 2016-03-27 Completed [facility] 00:00:00 [facility] Rho (d) Immune 2016-03-27 Completed [facility] 00:00:00 [facility] Rho (d) Immune 2016-03-27 Completed [facility] 00:00:00 [facility] Rho (d) Immune 2016-03-27 Completed [facility] 00:00:00 [facility] Rho (d) Immune 2016-03-27 Completed [facility] 00:00:00 [facility] Rho (d) Immune 2016-03-27 Completed [facility] 00:00:00 [facility] Rho (d) Immune 2016-03-27 Completed [facility] 00:00:00 [facility] Rho (d) Immune 2016-03-27 Completed [facility] 00:00:00 [facility] Rho (d) Immune 2016-03-27 Completed [facility] 00:00:00 [facility] Rho (d) Immune 2016-03-27 Completed [facility] 00:00:00 [facility] Rho (d) Immune 2016-03-27 Completed [facility] 00:00:00 [facility] Rho (d) Immune 2016-03-27 Completed [facility] 00:00:00 [facility] Rho (d) Immune 2016-03-27 Completed [facility] 00:00:00 [facility] Rho (d) Immune 2016-03-27 Completed [facility] 00:00:00 [facility] Rho (d) Immune 2016-03-27 Completed [facility] 00:00:00 [facility] Rho (d) Immune 2016-03-27 Completed [facility] 00:00:00 [facility] Rho (d) Immune 2016-03-27 Completed [facility] 00:00:00 [facility] Rho (d) Immune 2016-03-27 Completed [facility] 00:00:00 [facility] Rho (d) Immune 2016-03-27 Completed [facility] 00:00:00 [facility] Rho (d) Immune 2016-03-27 Completed [facility] 00:00:00 [facility] Rho (d) Immune 2016-03-27 Completed [facility] 00:00:00 [facility] Rho (d) Immune 2016-03-27 Completed [facility] 00:00:00 [facility] Rho (d) Immune 2016-03-27 Completed [facility] 00:00:00 [facility] Rho (d) Immune 2016-03-27 Completed [facility] 00:00:00 [facility] Rho (d) Immune 2016-03-27 Completed [facility] 00:00:00 [facility] Rho (d) Immune 2016-03-27 Completed [facility] 00:00:00 [facility] Rho (d) Immune 2016-03-27 Completed [facility] 00:00:00 [facility] Vital Signs Vital Name Observation Time Observation Value Comments Source HEIGHT 2020-09-22 06:00:00 152.4 cm WEIGHT 2020-09-22 06:00:00 80.8 kg HEIGHT 2020-09-21 19:00:00 152.4 cm WEIGHT 2020-09-21 19:00:00 80.786 kg Systolic blood 2020-11-26 13:09:00 118 mm[Hg] Univer sity of pressure [facility] Diastolic blood 2020-11-26 13:09:00 75 mm[Hg] Unive rsity of pressure [facility] Heart rate 2020-11-26 13:09:00 72 /min [facility] Body height 2020-11-26 13:09:00 160 cm [facility] Body weight 2020-11-26 13:09:00 81.647 kg [facility] BMI 2020-11-26 13:09:00 31.89 kg/m2 [facility] Oxygen saturation in 2020-11-26 13:09:00 100 /min [facility] blood by [facility] Pulse oximetry Branch Systolic blood 2020-11-01 18:58:00 136 mm[Hg] Univer sity of pressure [facility] Diastolic blood 2020-11-01 18:58:00 83 mm[Hg] Unive rsity of pressure [facility] Heart rate 2020-11-01 18:58:00 65 /min [facility] Body temperature 2020-11-01 18:58:00 37.06 Shira [facility] Respiratory rate 2020-11-01 18:58:00 18 /min [facility] of [facility] Body height 2020-11-01 18:58:00 160 cm [facility] Body weight 2020-11-01 18:58:00 80.377 kg [facility] BMI 2020-11-01 18:58:00 31.39 kg/m2 [facility] Oxygen saturation in 2020-11-01 18:58:00 100 /min [facility] blood by [facility] Pulse oxim[facility] Branch Systolic blood 2020-10-09 20:57:00 121 mm[Hg] Univer sity of pressure [facility] Diastolic blood 2020-10-09 20:57:00 72 mm[Hg] Unive rsity of pressure [facility] Heart rate 2020-10-09 20:57:00 75 /min [facility] Body temperature 2020-10-09 20:57:00 36.61 Shira [facility] Respiratory rate 2020-10-09 20:57:00 16 /min [facility] ers[facility] of [facility] Body height 2020-10-09 20:57:00 160 cm [facility] Body weight 2020-10-09 20:57:00 81.421 kg [facility] BMI 2020-10-09 20:57:00 31.80 kg/m2 [facility] Systolic blood 2020-10-09 20:57:00 121 mm[Hg] Univer sity of pressure [facility] Diastolic blood 2020-10-09 20:57:00 72 mm[Hg] Unive rsity of pressure [facility] Heart rate 2020-10-09 20:57:00 75 /min [facility] Body temperature 2020-10-09 20:57:00 36.61 Shira [facility] Respiratory rate 2020-10-09 20:57:00 16 /min Univ ersity of [facility] Body height 2020-10-09 20:57:00 160 cm [facility]i ty of [facility] Body weight 2020-10-09 20:57:00 81.421 kg [facility] BMI 2020-10-09 20:57:00 31.80 kg/m2 [facility]i ty of [facility] Systolic blood 2020-10-05 09:00:00 115 mm[Hg] Univer sity of pressure [facility] Diastolic blood 2020-10-05 09:00:00 68 mm[Hg] Unive rsity of [facility] Heart rate 2020-10-05 09:00:00 70 /min Universi ty of [facility] Body temperature 2020-10-05 09:00:00 36.56 Shira [facility] of [facility] Respiratory rate 2020-10-05 09:00:00 18 /min Univ ersity of [facility] Oxygen saturation in 2020-10-05 09:00:00 98 /min [facility] blood by [facility] Body height 2020-10-01 14:40:00 160 cm [facility] Body weight 2020-10-01 14:40:00 79.379 kg Universi ty of [facility] BMI 2020-10-01 14:40:00 31.00 kg/m2 [facility] HEIGHT 2020-09-22 06:00:00 152.4 cm WEIGHT 2020-09-22 06:00:00 80.8 kg HEIGHT 2020-09-21 19:00:00 152.4 cm WEIGHT 2020-09-21 19:00:00 80.786 kg Systolic blood 2020-09-15 05:45:58 155 mm[Hg] Univer sity of pressure [facility] Diastolic blood 2020-09-15 05:45:58 102 mm[Hg] Unive rsity of [facility] Heart rate 2020-09-15 05:45:58 95 /min Universi ty of [facility] Respiratory rate 2020-09-15 05:45:58 19 /min Univ ersity of [facility] Oxygen saturation in 2020-09-15 05:45:58 98 /min [facility] Body temperature 2020-09-15 02:54:00 36.67 Shira [facility] Body weight 2020-09-15 02:54:00 79.379 kg [facility] BMI 2020-09-15 02:54:00 31.00 kg/m2 [facility] Systolic blood 2020-09-13 05:00:00 110 mm[Hg] Univer sity of pressure [facility] Diastolic blood 2020-09-13 05:00:00 56 mm[Hg] Unive rsity of pressure [facility] Heart rate 2020-09-13 05:00:00 100 /min [facility] Body temperature 2020-09-13 05:00:00 37.33 Shira [facility] Respiratory rate 2020-09-13 05:00:00 18 /min Univ ersity of [facility] Oxygen saturation in 2020-09-13 04:00:00 100 /min [facility] [place] [facility] Body height 2020-09-13 00:48:00 160 cm [facility] Body weight 2020-09-13 00:48:00 78.019 kg [facility] BMI 2020-09-13 00:48:00 30.47 kg/m2 [facility] Systolic blood 2020-09-12 02:30:00 126 mm[Hg] Univer sity of pressure [facility] Diastolic blood 2020-09-12 02:30:00 80 mm[Hg] Unive rsity of pressure [facility] Heart rate 2020-09-12 02:30:00 103 /min [facility] Respiratory rate 2020-09-12 02:30:00 21 /min Univ ersity of [facility] Oxygen saturation in 2020-09-12 02:30:00 98 /min [facility] [place] [facility] Body temperature 2020-09-12 01:33:00 37.72 Shira [facility] Body height 2020-09-12 01:33:00 160 cm [facility] Body weight 2020-09-12 01:33:00 77.111 kg [facility] BMI 2020-09-12 01:33:00 30.11 kg/m2 [facility] Systolic blood 2020-08-31 17:00:00 121 mm[Hg] Univer sity of pressure [facility] Diastolic blood 2020-08-31 17:00:00 76 mm[Hg] Unive rsity of pressure [facility] Heart rate 2020-08-31 17:00:00 71 /min [facility] Respiratory rate 2020-08-31 17:00:00 12 /min Univ ersity of [facility] Oxygen saturation in 2020-08-31 17:00:00 97 /min [facility] [place] [facility] Body temperature 2020-08-31 16:20:00 38.5 Shira [facility] Body weight 2020-08-31 16:20:00 77.111 kg [facility] BMI 2020-08-31 16:20:00 30.11 kg/m2 [facility] Systolic blood 2020-08-30 04:04:21 139 mm[Hg] Univer sity of pressure [facility] Diastolic blood 2020-08-30 04:04:21 78 mm[Hg] Unive rsity of pressure [facility] Heart rate 2020-08-30 04:04:21 83 /min [facility] Body temperature 2020-08-30 04:04:21 37.72 Shira [facility] Respiratory rate 2020-08-30 04:04:21 19 /min Univ [facility]ity of [facility] Oxygen saturation in 2020-08-30 04:04:21 99 /min [facility] [place] [facility] Body height 2020-08-30 01:45:00 160 cm [facility] Body weight 2020-08-30 01:45:00 77.111 kg [facility] BMI 2020-08-30 01:45:00 30.11 kg/m2 [facility] Systolic blood 2020-06-07 16:00:00 127 mm[Hg] Univer sity of pressure [facility] Diastolic blood 2020-06-07 16:00:00 73 mm[Hg] Unive rsity of pressure [facility] Heart rate 2020-06-07 16:00:00 86 /min [facility] Body temperature 2020-06-07 16:00:00 37.39 Shira Univ ersity of [facility] Respiratory rate 2020-06-07 16:00:00 16 /min Univ ersity of [facility] Body height 2020-06-07 16:00:00 162.6 cm [facility] Body weight 2020-06-07 16:00:00 73.539 kg [facility] BMI 2020-06-07 16:00:00 27.83 kg/m2 [facility] Systolic blood 2020-05-14 01:03:00 140 mm[Hg] Univer sity of pressure [facility] Diastolic blood 2020-05-14 01:03:00 97 mm[Hg] Unive rsity of pressure [facility] Heart rate 2020-05-14 01:03:00 89 /min [facility] Body temperature 2020-05-14 01:03:00 37.33 Shira [facility] Respiratory rate 2020-05-14 01:03:00 20 /min Univ [facility]ity of [facility] Body height 2020-05-14 01:03:00 162.6 cm [facility] Body weight 2020-05-14 01:03:00 73.483 kg [facility] BMI 2020-05-14 01:03:00 27.81 kg/m2 [facility] Oxygen saturation in 2020-05-14 01:03:00 100 /min [facility] blood by [facility] P[facility] o[facility] Systolic blood 2020-01-17 19:49:00 123 mm[Hg] Univer sity of pressure [facility] Diastolic blood 2020-01-17 19:49:00 73 mm[Hg] Unive rsity of pressure [facility] Heart rate 2020-01-17 19:49:00 75 /min [facility] Body temperature 2020-01-17 19:49:00 37.39 Shira [facility] Respiratory rate 2020-01-17 19:49:00 16 /min Univ ersity of [facility] Body height 2020-01-17 19:49:00 160 cm [facility] Body weight 2020-01-17 19:49:00 86.183 kg [facility] BMI 2020-01-17 19:49:00 33.66 kg/m2 [facility] Systolic blood 2019-12-30 15:30:00 133 mm[Hg] Univer sity of pressure [facility] Diastolic blood 2019-12-30 15:30:00 84 mm[Hg] Unive rsity of pressure [facility] Heart rate 2019-12-30 15:30:00 98 /min [facility] Body temperature 2019-12-30 15:30:00 36.56 Shira [facility] Respiratory rate 2019-12-30 15:30:00 16 /min Univ [facility]ity of [facility] Body height 2019-12-30 15:30:00 162.6 cm [facility] Body weight 2019-12-30 15:30:00 84.936 kg [facility] BMI 2019-12-30 15:30:00 32.14 kg/m2 [facility] Systolic blood 2019-12-20 18:23:00 123 mm[Hg] Univer sity of pressure [facility] Diastolic blood 2019-12-20 18:23:00 76 mm[Hg] Unive rsity of pressure [facility] Heart rate 2019-12-20 18:23:00 83 /min [facility] Body temperature 2019-12-20 18:23:00 36.89 Shira [facility] Respiratory rate 2019-12-20 18:23:00 16 /min Univ ersity of [facility] Body height 2019-12-20 18:23:00 160 cm [facility] Body weight 2019-12-20 18:23:00 85.911 kg [facility] BMI 2019-12-20 18:23:00 33.55 kg/m2 [facility] Systolic blood 2019-09-27 19:20:00 129 mm[Hg] Univer sity of pressure [facility] Diastolic blood 2019-09-27 19:20:00 71 mm[Hg] Unive rsity of pressure [facility] Heart rate 2019-09-27 19:20:00 99 /min Universi ty of [facility] Body temperature 2019-09-27 19:20:00 36.44 Shira Univ ersity of [facility] Respiratory rate 2019-09-27 19:20:00 16 /min Univ ersity of [facility] Body height 2019-09-27 19:20:00 162.6 cm [facility] Body weight 2019-09-27 19:20:00 85.787 kg [facility] BMI 2019-09-27 19:20:00 32.46 kg/m2 [facility]i ty of [facility] Systolic blood 2019-08-18 16:00:00 109 mm[Hg] Univer sity of pressure [facility] Diastolic blood 2019-08-18 16:00:00 66 mm[Hg] Unive rsity of pressure [facility] Heart rate 2019-08-18 16:00:00 83 /min [facility] Respiratory rate 2019-08-18 16:00:00 18 /min Univ ersity of [facility] Oxygen saturation in 2019-08-18 16:00:00 99 /min [facility] blood by [facility] [place] Body temperature 2019-08-18 13:21:00 36.56 Shira Univ ersity of [facility] Body height 2019-08-18 13:21:00 162.6 cm [facility] Body weight 2019-08-18 13:21:00 77.111 kg [facility] BMI 2019-08-18 13:21:00 29.18 kg/m2 [facility]i ty of [facility] Systolic blood 2019-07-29 04:27:00 134 mm[Hg] Univer sity of pressure [facility] Diastolic blood 2019-07-29 04:27:00 80 mm[Hg] Unive rsity of pressure [facility] Heart rate 2019-07-29 04:27:00 80 /min [facility]i ty of [facility] Respiratory rate 2019-07-29 04:27:00 18 /min Univ ersity of [facility] Oxygen saturation in 2019-07-29 04:27:00 98 /min [facility] blood by [facility] Body temperature 2019-07-28 22:32:00 37.22 Shira [facility] Body height 2019-07-28 22:32:00 162.6 cm [facility] Body weight 2019-07-28 22:32:00 81.647 kg [facility] BMI 2019-07-28 22:32:00 30.90 kg/m2 [facility] Systolic blood 2019-06-27 02:00:00 122 mm[Hg] Univer sity of pressure [facility] Diastolic blood 2019-06-27 02:00:00 65 mm[Hg] Unive rsity of pressure [facility] Heart rate 2019-06-27 02:00:00 98 /min [facility]i ty of [facility] Respiratory rate 2019-06-27 02:00:00 18 /min Univ ersity of [facility] Oxygen saturation in 2019-06-27 02:00:00 99 /min [facility] blood by [facility] Body temperature 2019-06-27 00:13:46 36.83 Shira [facility] Body height 2019-06-27 00:10:00 160 cm [facility] Body weight 2019-06-27 00:10:00 79.379 kg [facility] BMI 2019-06-27 00:10:00 31.00 kg/m2 [facility] Systolic blood 2019-05-17 18:28:00 127 mm[Hg] Univer sity of pressure [facility] Diastolic blood 2019-05-17 18:28:00 68 mm[Hg] Unive rsity of pressure [facility] Heart rate 2019-05-17 18:28:00 75 /min [facility] Body temperature 2019-05-17 18:28:00 36.89 Shira [facility] Respiratory rate 2019-05-17 18:28:00 16 /min [facility] Body height 2019-05-17 18:28:00 162.6 cm [facility] Body weight 2019-05-17 18:28:00 79.635 kg [facility] BMI 2019-05-17 18:28:00 30.14 kg/m2 [facility] ty of [facility] Systolic blood 2019-04-20 17:06:00 134 mm[Hg] Univer sity of pressure [facility] Diastolic blood 2019-04-20 17:06:00 76 mm[Hg] Unive rsity of pressure [facility] Heart rate 2019-04-20 17:06:00 112 /min [facility]i ty of [facility] Body temperature 2019-04-20 17:06:00 37.33 Shira [facility] of [facility] Respiratory rate 2019-04-20 17:06:00 18 /min Univ ersity of [facility] Body weight 2019-04-20 17:06:00 81.647 kg [facility]i ty of [facility] BMI 2019-04-20 17:06:00 30.90 kg/m2 [facility] ty of [facility] Oxygen saturation in 2019-04-20 17:06:00 98 /min [facility] blood by [facility] P[facility] o[facility] Systolic blood 2019-03-21 22:03:00 139 mm[Hg] Univer sity of pressure [facility] Diastolic blood 2019-03-21 22:03:00 81 mm[Hg] Unive rsity of pressure [facility] Heart rate 2019-03-21 22:03:00 93 /min [facility] Body temperature 2019-03-21 22:03:00 37.33 Shira Univ ersity [facility] Respiratory rate 2019-03-21 22:03:00 16 /min Univ [facility] Body height 2019-03-21 22:03:00 162.6 cm [facility] Body weight 2019-03-21 22:03:00 76.233 kg [facility] BMI 2019-03-21 22:03:00 28.85 kg/m2 [facility] Procedures Procedure Date / Time Performing Clinician Source Performed MR BRAIN W WO CONTRAST 2020-10-18 19:21:42 Suzie Frey [facility] ASSIGNMENT OF BENEFITS 2020-10-09 20:43:10 Doctor Unassigned, No [facility] Branch LITHIUM 2020-10-05 10:05:00 Jacinto Parks [facility] HOSPITAL ADMISSION 2020-10-01 05:01:00 Doctor Unassigned, No [facility] EPILEPSY MONITORING UNIT 2020-09-30 05:01:00 Doctor Unassigned, No [facility] DOCUMENTATION [facility] ASSIGNMENT OF BENEFITS 2020-09-26 17:05:24 Doctor Unassigned, No [facility] POCT TEST 2020-09-15 04:50:00 Cheo Galvin [facility] CBC WITH DIFF 2020-09-15 04:14:00 Glenis, [facility] CREATINE KINASE 2020-09-15 04:03:00 Glenis [facility] COMP. METABOLIC PANEL 2020-09-15 04:03:00 Cheo Galvin [facility] ([id number]) [facility] ETHANOL 2020-09-15 04:03:00 Glenis, [facility] URINE DRUG (IMMUNOASSAY) 2020-09-15 04:03:00 Cheo Galvin [facility] SCREEN URINALYSIS 2020-09-15 04:03:00 Glenis, [facility] URINALYSIS 2020-08-31 17:10:00 Peace Paz [facility] POCT TEST 2020-08-31 17:08:00 Peace Paz [facility] COMP. METABOLIC PANEL 2020-08-31 16:30:00 Peace Paz [facility] ([id number]) [facility] CBC WITH DIFF 2020-08-31 16:30:00 Peace Paz [facility] LACTIC ACID WHOLE BLOOD 2020-08-31 16:30:00 Peace Paz [facility] POCT TEST 2020-08-30 02:44:00 Peace Paz [facility] URINALYSIS 2020-08-30 02:39:00 Peace Paz [facility] COVID-19 (ID NOW RAPID 2020-08-30 02:16:00 Peace Paz [facility] TESTING) [facility] NOTICE OF PRIVACY 2020-08-30 01:38:13 Doctor Unassigned, No [facility] PRACTICES Name Medical Branch CONSENT/REFUSAL FOR 2020-08-30 01:31:54 Doctor Unassigned, No [facility] [place] DIAGNOSIS AND TREATMENT Name [facility] POCT URINALYSIS W/O 2020-06-07 16:03:00 TerrelljeanetteaureIzzyAlma C [facility] SPECIFIC GRAVITY [facility] CT ABDOMEN PELVIS WO 2020-05-14 01:54:47 Peace Paz [facility] CONTRAST Medical Branch COMP. METABOLIC PANEL 2020-05-14 01:30:00 Peace Paz [facility] ([id number]) Medical Branch CBC WITH DIFF 2020-05-14 01:30:00 Peace Paz Yulia [facility] URINALYSIS 2020-05-14 01:08:00 Peace Paz [facility] POCT TEST 2020-05-14 01:08:00 Peace Paz [facility] CONSENT/REFUSAL FOR 2020-05-14 00:21:36 Doctor Unassigned, No [facility] [place] DIAGNOSIS AND TREATMENT Name Medical Kennard GARDASIL 9 (HPV 9V) 2019-12-30 15:25:24 Abena Patel [facility] VACCINE [facility] GARDASIL 9 (HPV 9V) 2019-09-27 20:17:36 Abena Patel [facility] VACCINE [facility] Branch POCT URINALYSIS W/O 2019-09-27 19:58:00 Abena Patel [facility] SPECIFIC Count includes the [facility] POCT TEST 2019-09-27 19:41:00 Abena Patel [facility] XR CHEST 1 VW 2019-08-18 15:36:27 Raven Goldsmith [facility] COVID-19 (ID NOW RAPID 2019-08-18 14:07:00 [facility]) Medical Branch RAPID STREP SCREEN FOR 2019-08-18 14:06:00 [facility] GROUP A Medical Branch TEST, SERUM 2019-08-18 14:05:00 Raven Goldsmith [facility] HEPATIC FUNCTION PANEL 2019-08-18 14:05:00 Raven Goldsmith [facility] ([id number]) (ALB,T.PRO,BILI Medical Branch T,BU/BC,ALT,AST,ALK PHOS) BASIC METABOLIC PANEL 2019-08-18 14:05:00 Raven Goldsmith [facility] (NA, K, CL, CO2, Medical Branch GLUCOSE, BUN, CREATININE, CA) CBC WITH DIFFERENTIAL 2019-08-18 14:05:00 Raven Goldsmith [facility] PROTHROMBIN TIME / INR 2019-08-18 14:05:00 Raven Goldsmith [facility] ACTIVATED PARTIAL 2019-08-18 14:05:00 Raven Goldsmith [facility] THRMPLAS ISABELL [facility] CONSENT/REFUSAL FOR 2019-08-18 13:01:15 Doctor Unassigned, No [facility]AT[facility] Name Medical Branch CT CHEST PULMONARY 2019-07-29 04:01:04 [facility] ANGIOGRAM Medical Branch TROPONIN I 2019-07-29 01:38:00 Nick [facility] COMP. METABOLIC PANEL 2019-07-29 01:38:00 Nick [facility] ([id number]) Medical Branch CBC WITH DIFFERENTIAL 2019-07-29 01:38:[address] [facility] [place] D-DIMER 2019-07-29 01:38:00 Nick [facility] XR CHEST 2 VW 2019-07-28 23:41:53 Nick [facility] EKG-12 LEAD 2019-07-28 23:31:26 Nick [facility] POCT TEST 2019-07-28 23:19:00 Yovani Romero [facility] COVID-19 (ID NOW RAPID 2019-07-28 23:18:00 Yovani Romero [facility] TESTING) Medical Branch NOTICE OF PRIVACY 2019-07-28 22:13:33 Doctor Unassigned, No Univ [facility] PRACTICES Name Medical Branch CONSENT/REFUSAL FOR 2019-07-28 22:13:23 Doctor Unassigned, No [facility] DIAGNOSIS AND TREATMENT Name Medical Branch CT ABDOMEN PELVIS WO 2019-06-27 01:06:22 Lory Pimentel [facility] CONTRAST [facility] POCT TEST 2019-06-27 00:37:00 Lory Pimentel [facility] BASIC METABOLIC PANEL 2019-06-27 00:32:00 Lory Pimentel I U [facility] (NA, K, CL, CO2, Medical Branch GLUCOSE, BUN, CREATININE, CA) CBC WITH DIFFERENTIAL 2019-06-27 00:32:00 Lory Pimentel [facility] URINALYSIS 2019-06-27 00:32:00 [place] [facility] GARDASIL 9 (HPV 9V) 2019-05-17 18:42:52 Abena Patel [facility] VACCINE [facility] POCT URINALYSIS W/O 2019-05-17 18:32:00 Abena Patel [facility] SPECIFIC GRAVITY [facility] POCT TEST 2019-04-20 19:21:00 Raven Golds[facility] URINALYSIS 2019-04-20 19:20:[address] [facility] ADC / LCC - DRUG SCREEN 2019-04-20 19:20:00 Peace Paz [facility] TRIAGE [facility] Branch LIPASE 2019-04-20 17:45:[address] [facility] COMP. METABOLIC PANEL 2019-04-20 17:45:00 Agus Raven [facility] ([id number]) [facility] CBC WITH DIFFERENTIAL 2019-04-20 17:45:00 [facility] HIV 1/2 AG-AB WITH 2019-03-21 22:15:00 Trever Katz [facility] REFLEX [facility] Plan of Care Planned Activity Planned Date Details Comments Source Future Scheduled Test CHLAMYDIA SCREENING [facility] [code = CHLAMYDIA SCREENING] Future Scheduled Test COVID-19 VACCINE (1) [facility] [code = COVID-19 VACCINE (1)] Future Scheduled Test Hepatitis C screening [facility] (procedure) [code = 656529103] Future Scheduled Test Screening for [facility] malignant neoplasm of cervix (procedure) [code = 601646135] Future Scheduled Test INFLUENZA VACCINE [facility] [code = INFLUENZA VACCINE] Encounters Start End Encounter Admission Attending Care Care Encounter Source Date/Time Date/Time Type Type Clinicians Facility Department ID 2021-01-07 Emergency [facility] [id number] Univers 07:14:20 ity of [facility] 2021-01-07 Emergency [facility] [id number] Univers 06:42:50 ity of [facility] 2021-01-07 Emergency [facility] [id number] Univers 06:25:23 ity of [facility] 2021-01-07 Emergency [facility] [id number] Univers 03:52:48 ity of [facility] 2021-01-07 Emergency [facility] [id number] Univers 03:25:06 ity of [facility] 2021-01-06 Emergency [facility] [id number] Univers 03:53:51 ity of [facility] 2020-09-21 Inpatient ER TESHA, SLE Gastro [id number] SLEH 19:23:00 JOANNE 2021-01-11 2021-01-11 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 114 [id number] Univers 10:24:34 10:39:34 Visit Abena Patel GROUP TESTER [id number] [facility] [id number] Dwayne as MATERNAL [phone] Med ical & CHILD [address] [place] [address] 2021-01-11 2021-01-11 Outpatient R [facility] [id number] Univers 10:30:00 10:30:00 [id number] ity [facility] 2021-01-11 2021-01-11 [facility] [id number] Univers 10:30:00 10:30:00 ABENA [facility] 2020-12-21 2020-12-21 [facility] 1.2.840.114 [id number] Univers 00:00:00 00:00:00 [facility] [id number] [facility] [id number] Dwayne as Jorge?Blea [phone] Hi anselmo [address] Medical Office Building 2020-12-18 2020-12-18 Outpatient R JORGE [facility] [id number] Univers 09:00:00 09:00:00 ABENA [id number] [facility] 2020-12-18 2020-12-18 Outpatient R JORGE [facility] [id number] Univers 09:00:00 09:00:00 ABENA [facility] 2020-11-28 2020-11-28 Outpatient R RAFI, [facility] [id number] Univers 14:00:00 14:00:00 BILLIZZIE [id number] [facility] 2020-11-26 2020-11-26 Office Aditi [facility] 1.2.840.114 [id number] Univers 07:48:27 09:58:10 Visit Richard [facility] [id number] [facility] [id number] Dwayne as Jorge?Blea [phone] Hi anselmo [address] Office [facility] 2020-11-26 2020-11-26 Outpatient RICHARD DYKES [facility] [id number] Univers 08:00:00 08:00:00 RICHARD PENNINGTON [id number] [facility] 2020-11-26 2020-11-26 Outpatient RICHARD DYKES [facility] [id number] Univers 08:00:00 08:00:00 RICHARD PENNINGTON [facility] 2020-11-20 2020-11-20 Outpatient RICHARD DYKES [facility] [id number] Univers 08:00:00 08:00:00 RICHARD PENNINGTON [id number] [facility] 2020-11-20 2020-11-20 Outpatient RICHARD DYKES [facility] [id number] Univers 08:00:00 08:00:00 RICHARD PENNINGTON [facility] 2020-11-14 2020-11-14 Telephone Aditi [facility] 1.2.840.114 [id number] Univers 00:00:00 00:00:00 Richard Misael Foley [id number] [id number] [facility] [phone] Hi dical nal 092 Branch [facility] 2020-11-01 2020-11-01 Office [facility] 1.2.840.114 [id number] Univers 13:43:12 14:35:39 Visit Liliana GREGORY [id number] ity of [facility] [id number] [facility] [employer] AT [phone] Hi dical VICTORY 204 Branch [facility] 2020-11-01 2020-11-01 Outpatient R BRAD [facility] [id number]-20 Univers 14:00:00 14:00:00 LILIANA [id number] [facility] 2020-11-01 2020-11-01 Outpatient R BRAD [facility] [id number] Univers 14:00:00 14:00:00 LILIANA [facility] 2020-10-22 2020-10-22 Outpatient R BRAD [facility] [id number]-20 Univers 13:00:00 13:00:00 LILIANA [id number] [facility] 2020-10-19 2020-10-19 Outpatient R RICHARD PENNINGTON [facility] [id number] Univers 08:40:00 08:40:00 RICHARD PENNINGTON [facility] 2020-10-18 2020-10-18 [facility] 1.2.840.114 [id number] Univers 12:54:28 23:59:00 Encounter Lauryn Foley [id number] ity [facility] [id number] [id number] [facility] 804 Branch 2020-10-18 2020-10-18 Outpatient R DESIREE [facility] [id number] Univers 13:00:00 13:00:00 LAURYN [id number] cassius o [facility] 2020-10-18 2020-10-18 Outpatient R DESIREE [facility] [id number] Univers 00:00:00 00:00:00 LAURYN hammonds o [facility] 2020-10-15 2020-10-15 [place] [facility] 1.2.840.114 [id number] 00:00:00 00:00:00 Abena N GROUP TESTER [id number] REGIONAL [id number] MATERNAL [phone] & CHILD [address] [place] [address] 2020-10-15 2020-10-15 [facility] 1.2.840.114 [id number] [facility] 00:00:00 00:00:00 Abena N GROUP TESTER [id number] it y of REGIONAL [id number] Dwayne as MATERNAL [phone] [facility] & CHILD [address] [place] [address] 2020-10-12 2020-10-12 [facility] 1.2.840.114 [id number] 00:00:00 00:00:00 Abena N GROUP TESTER [id number] REGIONAL [id number] MATERNAL [phone] & CHILD [address] [place] [address] 2020-10-12 2020-10-12 [facility] 1.2.840.114 [id number] [facility] 00:00:00 00:00:00 Abena N GROUP TESTER [id number] it y of REGIONAL [id number] Dwayne as MATERNAL [phone] [facility] & [address] 2020-10-11 2020-10-11 [facility] [id number] Univers 15:15:00 15:15:00 ABENA [id number] cassius [facility] 2020-10-11 2020-10-11 Outpatient R JORGE [facility] [id number] Univers 15:15:00 15:15:00 ABENA hammonds [facility] 2020-10-11 2020-10-11 [facility] 1.2.840.114 [id number] 00:00:00 00:00:00 Abena N GROUP TESTER [id number] REGIONAL [id number] MATERNAL [phone] & CHILD [address] [place] [address] 2020-10-11 2020-10-11 Telephone [facility] 1.2.840.114 [id number] Univers 00:00:00 00:00:00 Abena Camarillo GROUP TESTER [id number] it y of [facility] [id number] Dwayne as MATERNAL [phone] [facility] & CHILD [address] [place] [address] 2020-10-09 2020-10-09 Office [facility] [id number] 15:44:08 16:29:53 Visit Abena Camarillo GROUP TESTER [id number] REGIONAL [id number] MATERNAL [phone] & [address] 2020-10-09 2020-10-09 Office [facility] [id number] Univers 15:44:08 16:29:53 Visit Abena Camarillo GROUP TESTER [id number] it y of [facility] [id number] Dwayne as MATERNAL [phone] [facility] & CHILD [address] [place] [address] 2020-10-09 2020-10-09 Outpatient R [facility] [id number] Univers 15:45:00 15:45:00 ABENA hammonds [facility] 2020-10-09 2020-10-09 Orders Doctor COLT 1.2.840.114 [id number] Univers 00:00:00 00:00:00 Only Unassigned, PARUL [id number] ity of [place] [facility] 4.2.7.2.686 Dwayne as [phone] [facility] 009 Branch 2020-10-08 2020-10-08 Transition Julio Grant 1.2.840.114 [id number] Univers 00:00:00 00:00:00 of Care Mesfin Guerrero [id number] ity of [place].7.2.[place] [phone] [facility] 403 Branch 2020-10-01 2020-10-05 Hospital Mary Rios 1.2.840.114 [id number] Univers 09:39:00 10:22:00 Encounter S Parul [id number] ity of [facility] [id number] Dwayne as [phone] [facility] 098 Branch 2020-10-01 2020-10-01 Outpatient R [facility] [id number] Univers 08:30:00 08:30:00 [id number] ity of [facility] 2020-10-01 2020-10-01 Outpatient R MARY RIOS [facility] [id number] Univers 08:30:00 08:30:00 ity [facility] 2020-10-01 2020-10-01 Orders Doctor GREGORY 1.2.840.114 [id number] Univers 00:00:00 00:00:00 Only Unassigned, PARUL [id number] ity of [place] [facility] 4.2.7.2.686 Dwayne as [phone] [facility] 009 Kennard 2020-09-30 2020-09-30 Orders Doctor GREGORY 1.2.840.114 [id number] Univers 00:00:00 00:00:00 Only Unassigned, PARUL [id number] ity of [place] [facility] 4.2.7.2.686 Dwayne as [id number] [facility] 009 Kennard 2020-09-28 2020-09-28 Outpatient R JORGE [facility] [id number] Univers 09:30:00 09:30:00 ABENA [id number] ity [facility] 2020-09-28 2020-09-28 Outpatient R JORGE [facility] [id number] Univers 09:30:00 09:30:00 ABENA ity [facility] 2020-09-27 2020-09-27 Outpatient R [facility] [id number] Univers 11:45:00 11:45:00 [id number] ity [facility] 2020-09-26 2020-09-26 Laboratory Only, Adc Test [facility] 1.2.840. 114 [id number] Univers 12:05:49 12:20:49 Only Mary Rios [place] [id number] ity of [place] [phone] [facility] 353 Branch 2020-09-26 2020-09-26 Outpatient R [facility] [id number] Univers 12:00:00 12:00:00 [id number] ity of [facility] 2020-09-26 2020-09-26 Outpatient R [facility] [id number] Univers 12:00:00 12:00:00 ity of [facility] 2020-09-26 2020-09-26 Orders Doctor GREGORY 1.2.840.114 [id number] Univers 00:00:00 00:00:00 Only Unassigned, PARUL [id number] [facility] 4.2.7.2.686 Dwayne as [id number] [facility] 009 Branch 2020-09-21 2020-09-21 Outpatient R RICHARD PENNINGTON [facility] [id number] Univers 10:00:00 10:00:00 RICHARD PENNINGTON [id number] ity of [facility] 2020-09-21 2020-09-21 Outpatient R RICHARD PENNINGTON [facility] [id number] Univers 10:00:00 10:00:00 RICHARD PENNINGTON ity of [facility] 2020-09-14 2020-09-15 Emergency Glenis, TRAUMA 1.2.011.146 [id number] Univers 21:58:00 00:49:00 Cheo MOORE [id number] ity of [place] [id number] [facility] 014 Branch 2020-09-12 2020-09-13 Emergency Peace Paz [facility] 1.2.840.114 [id number] Univers 19:41:00 00:37:00 Yulia Foley 350.1.13.10 i ty of [place].2.7.2.686 [place] [id number] [facility] 084 Branch 2020-09-12 2020-09-12 Telephone Aditi [facility] 1.2.840.114 [id number] Univers 00:00:00 00:00:00 Richard Foley 350.1.13.10 ity of [place]2.7.2.686 [place] [facility] [phone] [facility] 092 [facility] 2020-09-11 2020-09-11 Emergency [facility] 1.2.044.920 [id number] Univers 20:23:00 22:08:00 Wong Foley 350.1.13.10 i ty of [place] 4.2.7.2.686 [facility] [id number] [address] 2020-08-31 2020-08-31 Emergency Kwaku, [facility] 1.2.840.114 [id number] Univers 11:19:00 13:58:00 Yulia Foley 350.1.13.10 i ty of [place] 4.2.7.2.686 [facility] [id number] [address] 2020-08-29 2020-08-29 Emergency Kwaku, [facility] 1.2.840.114 [id number] Univers 20:48:00 23:11:00 Yulia Foley 350.1.13.10 i ty of [place] 4.2.7.2.686 [facility] [id number] [address] 2020-06-07 2020-06-07 Office [facility] 1.2.720.160 [id number] Univers 10:50:31 11:18:03 Visit Alma Estevez GROUP TESTER 350.1.13.10 ity [facility] 4.2.7.2.686 Dwayne as MATERNAL [id number] Med ical & CHILD [address] [place] [address] 2020-06-07 2020-06-07 Outpatient R IRMA [facility] [id number] Univers 11:00:00 11:00:00 ALMA [id number] cassius pierce [facility] 2020-06-07 2020-06-07 Outpatient Bryn SOLIS [facility] [id number] Univers 11:00:00 11:00:00 ALMA pierce [facility] 2020-05-29 2020-05-29 Patient Alfred [facility] 1.2.840.114 [id number] Univers 00:00:00 00:00:00 Outreach Santosh AN 350.1.13.10 i ty of [facility] 4.2.7.2.686 [place] [facility] [phone] Hi dical 388 Branch 2020-05-13 2020-05-13 Emergency Peace Paz [facility] 1.2.840.114 [id number] Univers 19:12:00 21:45:00 Yulia [place] 350.1.13.10 i ty of [place] 4[place]2.7.2.686 [place] [id number] [facility] 084 Branch 2020-05-13 2020-05-13 Orders Doctor COLT 1.2.840.114 [id number] Univers 00:00:00 00:00:00 Only Unassigned, PARUL 350.1.13.10 ity of [place] [facility] 4.2.7.2.686 Dwayne as [id number] [facility] 009 Branch 2020-03-22 2020-03-22 Outpatient [facility] [id number] Univers 13:30:00 13:30:00 [id number] ity of [facility] 2020-01-19 2020-01-19 Telephone Visit, [facility] [id number] Univers 00:00:00 00:00:00 [facility] GROUP TESTER [id number] ity of Nurse [facility] [id number] Dwayne as MATERNAL [id number] [facility] ical & CHILD [address] [place] [address] 2020-01-17 2020-01-17 Office [facility] 1.2.840.114 [id number] Univers 13:39:45 14:25:08 Visit Trever Clemente GROUP TESTER 350.1.13.10 ity of [facility] 4.2.7.2.686 Dwayne as MATERNAL [phone] [facility] & CHILD [address] [place] [address] 2020-01-17 2020-01-17 Outpatient Bryn KATZ [facility] [id number] Univers 13:45:00 13:45:00 TREVER [id number] ity o f [facility] 2020-01-17 2020-01-17 Outpatient Bryn KATZ [facility] [id number] Univers 13:45:00 13:45:00 ROSBELINDANDA ity o f [facility] 2020-01-16 2020-01-16 Telephone Gianna [facility] [id number] [id number] Univers 00:00:00 00:00:00 Lunda R GROUP TESTER [id number] ity of [facility] [id number] Dwayne as MATERNAL [id number] [facility] & CHILD [address] [place] [address] 2019-12-30 2019-12-30 Nurse Visit, Reddy-Rmchp Nurse [facility] 1.2 .840.114 [id number] Univers 10:22:21 10:37:21 Visit Abena Patel GROUP TESTER 350.1.13.10 ity of [facility] HOSPITAL 4.2.7.2.686 Dwayne as MATERNAL [phone] [address] 2019-12-30 2019-12-30 Outpatient R [facility] [id number] -[id number] Univers 10:30:00 10:30:00 [id number] ity [facility] 2019-12-30 2019-12-30 Outpatient R [facility] [id number] Univers 10:30:00 10:30:00 ity of [facility] 2019-12-21 2019-12-21 [facility] [id number] Univers 00:00:00 00:00:00 Trever R GROUP TESTER 350.1.13.10 ity of [facility] [id number] Dwayne as MATERNAL [phone] [address] 2019-12-20 2019-12-20 Office Gianna [facility] 1.2.840.114 [id number] Univers 13:03:11 13:55:34 Visit Trever R GROUP TESTER 350.1.13.10 ity of [facility] 4.2.7.2.686 Dwayne as MATERNAL [phone] [address] 2019-12-20 2019-12-20 Outpatient R GIANNA [facility] [id number] -20 Univers 12:45:00 12:45:00 TREVER [id number] ity o f [facility] 2019-12-20 2019-12-20 [facility] [id number] Univers 12:45:00 12:45:00 TREVER ity o f [facility] 2019-11-07 2019-11-07 Outpatient R [facility] [id number] -20 Univers 14:00:00 14:00:00 [id number] [facility] 2019-10-24 2019-10-24 Telephone [facility] 1.2.840.114 [id number] Univers 00:00:00 00:00:00 Abena Camarillo GROUP TESTER 350.1.13.10 it y of REGIONAL 4.2.7.2.686 Dwayne as MATERNAL [phone] [facility] & CHILD [address] [place] [address] 2019-10-17 2019-10-17 Outpatient R [facility] [id number] -[id number] Univers 15:00:00 15:00:00 [facility] 2019-10-17 2019-10-17 Outpatient R [facility] [id number] Univers 15:00:00 15:00:00 [facility] 2019-09-28 2019-09-28 Telephone [facility] 1.2.840.114 [id number] Univers 00:00:00 00:00:00 Abena Camarillo GROUP TESTER 350.1.13.10 it y of REGIONAL 4.2.7.2.686 Dwayne as MATERNAL [phone] [facility] & [address] 2019-09-27 2019-09-27 Office [facility] [id number] [id number] Univers 14:03:06 14:59:44 Visit Abena Camarillo GROUP TESTER 350.1.13.10 it y of [facility] 4.2.7.2.686 Dwayne as MATERNAL [phone] [facility] & [address] 2019-09-27 2019-09-27 [facility] [id number] [id number] Univers 14:00:00 14:00:00 ABENA [id number] [facility] 2019-09-27 2019-09-27 [facility] [id number] Univers 14:00:00 14:00:00 ABENA [facility] 2019-08-26 2019-08-26 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 114 [id number] Univers 12:52:43 13:06:01 Visit Alma Solis GROUP TESTER 350.1.13. 10 ity [facility] 4.2.7.2.686 Dwayne as MATERNAL [phone] Med ical & CHILD [address] [place] [address] 2019-08-26 2019-08-26 Outpatient R [facility] [id number] -[id number] Univers 13:00:00 13:00:00 [id number] ity [facility] 2019-08-26 2019-08-26 [facility] [id number] Univers 13:00:00 13:00:00 ALMA hammonds o f [facility] 2019-08-19 2019-08-19 Outpatient R [facility] [id number] -[id number] Univers 13:00:00 13:00:00 [id number] ity [facility] 2019-08-19 2019-08-19 Outpatient R [facility] [id number] Univers 13:00:00 13:00:00 ity of [facility] 2019-08-18 2019-08-18 Outpatient R [facility] [id number] -[id number] Univers 13:00:00 13:00:00 [id number] ity [facility] 2019-08-18 2019-08-18 Outpatient R [facility] [id number] Univers 13:00:00 13:00:00 ity of [facility] 2019-08-18 2019-08-18 Emergency [facility] [id number] Univers 08:24:15 11:52:00 RAVEN [facility] 2019-08-18 2019-08-18 Emergency [facility] [id number] Univers 08:24:15 11:52:00 Raven Annton 350.1.13.10 i ty of [place] 4.2.7.2.686 [facility] [phone] [facility] [address] 2019-08-18 2019-08-18 Orders Doctor COLT 1.2.840.114 [id number] Univers 00:00:00 00:00:00 Only Unassigned, PARUL 350.1.13.10 ity of [place] [facility] 4.2.7.2.686 Dwayne as [phone] [facility] [address] 2019-07-31 2019-07-31 Telephone COLT Miramontes [id number] Univers 00:00:00 00:00:00 Gabbierosa CAT 350.1.13.10 i ty of [facility] 4.2.7.2.686 Dwayne as [phone] [facility] [address] 2019-07-28 2019-07-29 Emergency X NICK, [facility] ERT [id number] Univers 18:06:33 00:02:00 SHINTA [facility] 2019-07-28 2019-07-29 [facility] 1.2.840.114 [id number] Univers 18:06:33 00:02:00 [facility] 350.1.13.10 i ty [facility] 4.2.7.2.686 [place] [facility] [phone] [facility] [address] 2019-07-18 2019-07-18 [facility] 1.2.840.114 [id number] Univers 12:55:14 14:20:25 ne Visit Alma Estevez GROUP TESTER 350.1.13.10 ity [facility] 4.2.7.2.686 Dwayne as MATERNAL [phone] Med ical & CHILD [address] [place] [address] 2019-07-18 2019-07-18 [facility]patient [facility] [id number] 5Q-[id number] Univers 14:00:00 14:00:00 ALMA [id number] ity o f [facility] 2019-07-18 2019-07-18 Outpatient R IRMA, [facility] [id number] Univers 14:00:00 14:00:00 ALMA ity o f [facility] 2019-06-27 2019-06-27 Outpatient R [facility] [id number] -20 Univers 15:30:00 15:30:00 [id number] ity [facility] 2019-06-27 2019-06-27 Outpatient R [facility] [id number] Univers 15:30:00 15:30:00 [facility] 2019-06-26 2019-06-26 Emergency X CIARA [facility] ERT [id number] Univers 19:06:29 21:03:00 LORY ity of [facility] 2019-06-26 2019-06-26 Emergency Pimentel, [facility] 1.2.840.114 [id number] Univers 19:06:29 21:03:00 [facility] 350.1.13.10 ity of [place].2.[place] janessa Arreola [phone] [address] ([facility]) 2019-06-26 2019-06-26 Telephone Irma [facility] 1.2.840.114 [id number] Univers 00:00:00 00:00:00 Alma Estevez GROUP TESTER 350.1.13.10 ity of REGIONAL 4.2.7.2.686 Dwayne as MATERNAL [phone] Med ical & CHILD [address] [place] [address] 2019-06-24 2019-06-24 Outpatient R [facility] [id number] -[id number] Univers 09:30:00 09:30:00 [id number] ity [facility] 2019-06-24 2019-06-24 Outpatient R [facility] [id number] Univers 09:30:00 09:30:00 ity [facility] 2019-06-23 2019-06-23 Telemedici [facility] 1.2.840.114 [id number] Univers 12:57:38 15:49:57 ne Visit Alma Estevez GROUP TESTER 350.1.13.10 ity of REGIONAL 4.2.7.2.686 Dwayne as MATERNAL [phone] [facility] & CHILD [address] [place] [address] 2019-06-23 2019-06-23 Outpatient IRMA [facility] [id number] 5Q-[id number] Univers 15:30:00 15:30:00 ALMA [id number] ity o f [facility] 2019-06-23 2019-06-23 Outpatient R IRMA [facility] [id number] Univers 15:30:00 15:30:00 ALMA garciay o f [facility] 2019-06-22 2019-06-22 Outpatient R JORGE [facility] [id number] Univers 13:30:00 13:30:00 ABENA ityolie [facility] 2019-06-22 2019-06-22 Outpatient [facility] [id number] -20 Univers 09:00:00 09:00:00 [id number] ity of [facility] 2019-06-22 2019-06-22 Telephone Visit, [facility] [id number] Univers 00:00:00 00:00:00 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 114 [id number] Univers 13:00:32 13:15:32 Visit Alma Solis GROUP TESTER 350.1.13. 10 ity of [facility] 4.2.7.2.686 Dwayne as MATERNAL [id number] [facility] CHILD [address] [place] [address] 2019-06-21 2019-06-21 Outpatient [facility] [id number] -20 Univers 10:30:00 10:30:00 [id number] ity of [facility] 2019-06-21 2019-06-21 Outpatient R IRMA [facility] [id number] Univers 10:30:00 10:30:00 ALMA garciay o f [facility] 2019-06-21 2019-06-21 Telephone [facility] 1.2.840.114 [id number] Univers 00:00:00 00:00:00 Abena Camarillo GROUP TESTER 350.1.13.10 it y of [facility] 4.2.7.2.686 Dwayne as MATERNAL [id number] Med ical & CHILD [address] [place] [address] 2019-06-20 2019-06-20 Telephone [facility] 1.2.840.114 [id number] Univers 00:00:00 00:00:00 Abena N GROUP TESTER 350.1.13.10 it y of REGIONAL 4.2.7.2.686 Dwayne as MATERNAL [phone] Med ical & CHILD [address] [place] [address] 2019-06-10 2019-06-10 Telephone [facility] 1.2.840.114 [id number] Univers 00:00:00 00:00:00 Abena N GROUP TESTER 350.1.13.10 it y of REGIONAL 4.2.7.2.686 Dwayne as MATERNAL [phone] Med ical & CHILD [address] [place] [address] 2019-05-20 2019-05-20 [facility] 1.2.840.114 [id number] Univers 00:00:00 00:00:00 Abena N GROUP TESTER 350.1.13.10 it y of REGIONAL 4.2.7.2.686 Dwayne as MATERNAL [phone] Med ical & CHILD [address] [place] [address] 2019-05-19 2019-05-19 [facility] 1.2.840.114 [id number] Univers 00:00:00 00:00:00 Abena N GROUP TESTER 350.1.13.10 it y of [facility]IONAL 4.2.7.2.686 Dwayne as MATERNAL [phone] Med ical & CHILD [address] [place] [address] 2019-05-17 2019-05-17 Office [facility] [id number] Univers 13:24:09 13:50:08 Visit Abena N GROUP TESTER 350.1.13.10 it y of [place] 4.2.7.2.686 Dwayne as MATERNAL [id number] Med ical & CHILD [address] [place] [address] 2019-05-17 2019-05-17 Outpatient Bryn PATEL [facility] [id number] 5Q-20 Univers 13:30:00 13:30:00 ABENA [id number] ity [facility] 2019-05-17 2019-05-17 Outpatient Bryn PATEL [facility] [id number] Univers 13:30:00 13:30:00 ABENA hammonds [facility] 2019-05-06 2019-05-06 Outpatient Bryn KATZ [facility] [id number] -[id number] Univers 08:15:00 08:15:00 TREVER [id number] ity o f [facility] 2019-05-06 2019-05-06 Outpatient R GIANNA [facility] [id number] Univers 08:15:00 08:15:00 TREVER ity o f [facility] 2019-04-20 2019-04-20 Emergency Peace Paz [facility] 1.2.840.114 [id number] Univers 11:02:10 14:18:00 [facility] 350.1.13.10 i ty of [place]7.2.[place] [id number] [address] 2019-03-29 2019-03-29 Telephone [facility] 1.2.342.755 [id number] Univers 00:00:00 00:00:00 Trever R GROUP TESTER 350.1.13.10 ity of [facility] 4.2.7.2.686 Dwayne as MATERNAL [phone] [facility] CHILD [address] [place] [address] 2019-03-22 2019-03-22 [facility] [id number] [id number] Univers 00:00:00 00:00:00 Trever R GROUP TESTER 350.1.13.10 ity of [facility] 4.2.7.2.686 Dwayne as MATERNAL [phone] [facility] & [address] 2019-03-21 2019-03-21 [facility] 1.2.840.114 [id number] Univers 15:39:38 16:25:05 Visit Trever R GROUP TESTER 350.1.13.10 ity of [facility] 4.2.7.2.686 Dwayne as MATERNAL [phone] [facility] & [address] Results Test Description Test Test Results Result Source Time Comments Comments MR BRAIN W WO 2020-10- Normal MRI of the Uni versity of CONTRAST 12 brain.. Neuro[facility] 21:16:55 Hippocampal Asymmetry Bra [facility] Report demonstrates Normal Scan: Does notsupport the [...] volumetry of the brain was performed using NeuroQuant([employer], [place], [place]) software package. The NeuroQuantanalysis was based on [...] were within 2 SD of the mean. [facility], Radiant Results Inft User - 10/18/2020 4:18 PM CDT MR BRAIN W WO CONTRASTCOMPARISON: MR brain 11/24/2017.HISTORY: seizures TECHNIQUE: Seizure protocol MRI of the brain was performed prior to andafter intravenous contrast administration. Quantitative volumetry of the brain was performed using NeuroQuant([employer], [place], [place]) software package. The NeuroQuantanalysis was based on [...] Item Value Reference Range Interpretation Comme nts [place] (test code = 4741987933) 0.8 mmol/L 0.6-1.2 MARCELLE (test code = MARCELLE) Toxic Range: ? Greater than 1.2 mmol/L Lab Interpretation (test code = 91129-2) Normal [facility] [id number] 18:22:00 Test Item Value Reference Range Interpretation Comments LITHIUM LEVEL (BEAKER) 0.8 mmol/L 0.8-1.2 (test code = 630) SCAN RESULT (test code = See Scanned Report [id number]) [place], [id number] 14:13:01Reason for exam:->abnormal imaging [facility] CENTERName: VALORIE ROTHMAN : 1995 Sex: FFluoroscopic unit utilized for a procedure performed in the OR. No interpretation was requested. Refer to the operative report for findings. Refer to PACS for patient radiation dose information.COMPREHENSIVE METABOLIC [id number] 06:43:00 Test Item Value Reference Range Interpretation [...] S NOT APPLICABLE FOR DIALYSIS PATIEN TS. Imaging Clerk ID - [place] [facility] [place] ONLY[place]2020-09-24 06:04:00 Test Item Value Reference [...] (BEAKER) (test code = 413) COMPREHENSIVE METABOLIC [id number] 07:06:00 Test Item Value Reference Range Interpretation [...] S NOT APPLICABLE FOR DIALYSIS PATIEN TS. Imaging Clerk ID - PIAYA [facility] (HEMOGRAM ONLY)2020-09-23 06:47:00 [...] (BEAKER) (test code = 413) COMPREHENSIVE METABOLIC [id number] 08:27:00 Test Item Value Reference Range Interpretation [...] S NOT APPLICABLE FOR DIALYSIS PATIEN TS. Imaging Clerk ID - MADISON [id number] 08:27:00 Test Item Value Reference Range Interpretation Comments MAGNESIUM (BEAKER) (test code = 2.4 mg/dL 1.6-2.6 627) Imaging Clerk ID - MADISON MPROTHROMBIN [id number] 07:59:00 Test Item Value Reference Range Interpretation Comments PROTIME (BEAKER) 13.0 seconds 11.9-14.2 (test code = 759) INR (BEAKER) (test 1.00 See_Comment [Automat ed message] code = 370) The system [facility] generated this result transmitted ref erence range: [...] code = 2801) DRUG SCREEN PANEL 2 [id number] 05:19:56 Test Item Value Reference Range Interpretation Comments AMPHET (test code = Negative Negative 1074230266) VALERIE U (test code = Negative Negative 4998864796) BENZO U (test code = Negative Negative 9083947124) Cocaine Metabolite (test Negative Negative code = 1470071897) METHADONE (test code = Negative Negative 7607561791) OPIATES (test code = Negative Negative 1328736448) PCP (test code = Negative Negative 6597673539) THC (test code = Negative Negative 8159111894) MARCELLE (test code = MARCELLE) Urine Drug [...] testing). Lab Interpretation (test Normal code = 18349-9) [facility] WITH [id number] 04:55:16 Test Item Value Reference Range Interpretation [...] RDW-SD (test code = 41.8 fL 39.0-49.9 16100-1) RDW-CV (test code = 12.7 % 12.0-15.5 788-0) PLT (test code = See_Comment [Automated 777-3) message] The sy stem which generated this result transmitted reference range : 166 - 358 10*3/ ?L. The reference r david was not used to interpret this result as normal/abnormal . MPV (test code = 9.3 fL 9.5-12.9 L 30111-1) NRBC/100 WBC (test See_Comment [Automat ed code = 9024441285) message] The system which generated this result transmitted reference range : 0.0 - 10.0 /100 WBCs. The refer ence range was not u sed to interpret th is result as normal/abnormal . NRBC x10^3 (test code <0.01 See_Comment [Auto mated = 0887125410) message] The s ystem which generated this result transmitted reference range : 10*3/?L. The reference range was not used to interpret this result as normal/abnormal . GRAN MAT (NEUT) % 54.5 % (test code = 770-8) IMM GRAN % (test code 1.10 % = 3609621414) LYMPH % (test code = 36.2 % 736-9) MONO % (test code = 6.8 % 5905-5) EOS % (test code = 1.2 % 713-8) BASO % (test code = 0.2 % 706-2) GRAN MAT x10^3(ANC) 6.13 10*3/uL 1.88-7.09 (test code = 1299714340) IMM GRAN x10^3 (test 0.12 10*3/uL 0.00-0.06 H code = 8539513775) LYMPH x10^3 (test code 4.07 10*3/uL 1.32-3.29 H = 731-0) MONO x10^3 (test code 0.76 10*3/uL 0.33-0.92 = 742-7) EOS x10^3 (test code = 0.14 10*3/uL 0.03-0.39 711-2) BASO x10^3 (test code <0.03 0.01-0.07 = 704-7) Lab Interpretation Abnormal (test code = 61416-5) [facility] [id number] 04:50:00 Test Item Value Reference Range Interpretation Comments POCT PREG (test code = 1605) negative POCT PREG LOT # (test code = 3575) [id number] POCT PREG TEST DATE (test 03-08-2022 code = 3576) Lab Interpretation (test code = Normal 15947-3) [facility]21-[facility]-10 04:44:46 Test Item Value Reference Range Interpretation Comments APPEARANCE (test code = Clear Clear 6551475436) COLOR (test code = Straw Yellow A 9509322044) PH (test code = 4.8-8.0 0678606653) SP GRAVITY (test code = 1.003-1.030 9543196404) GLU U QUAL (test code = Normal Normal 4045027433) BLOOD (test code = Negative Negative 8769597793) KETONES (test code = Negative Negative 6191514668) PROTEIN (test code = Negative Negative 2887-8) UROBILIN (test code = Normal Normal 9319120242) BILIRUBIN (test code = Negative Negative 6426870427) NITRITE (test code = Negative Negative 6258916681) LEUK WILBERT (test code = Negative Negative 8169312115) RBC/HPF (test code = See_Comment [Autom ated message] 8950753960) The system [facility] generated this result transmitted ref erence range: 0 - 3 HP F. The reference range was not used to int erpret this result as normal/abnormal . WBC/HPF (test code = See_Comment [Autom ated message] 4477096230) The system [facility] generated this result transmitted ref erence range: 0 - 5 HP F. The reference range was not used to int erpret this result as normal/abnormal . BACTERIA (test code = Negative Negative 3359287367) SQ EPITH (test code = See_Comment H [Auto mated message] 9073743060) The system [facility] generated this result transmitted ref erence range: <=2 HPF. The reference range was not used to int erpret this result as normal/abnormal . Lab Interpretation (test Abnormal code = 58480-6) [facility]2021-[facility]-10 04:38:17 Test Item Value Reference Range Interpretation Comments ALCOHOL (test code = <10 mg/dL 7343864600) MARCELLE (test code = Toxic Greater than or MARCELLE) equal to 80 mg/dL. NOTE: Whole blood values are approximately 10% to 15% lower than serum and plasma. [facility] [id number] 04:38:12 Test Item Value Reference Range Interpretation Comments CK (test code = 5332098757) <20 33-194 L Lab Interpretation (test code = Abnormal 43522-9) [facility]. METABOLIC PANEL (75020)2020-09-15 04:38:07 Test Item Value Reference Range Interpretation Comments NA (test code = 141 mmol/L 135-145 9684464116) K (test code = 3.7 mmol/L 3.5-5.0 9018202376) CL (test code = 108 mmol/L 98-108 6257713444) CO2 TOTAL (test code = 25 mmol/L 23-31 9114874898) AGAP (test code = 2-16 6592406955) BUN (test code = 9 mg/dL 7-23 7798845871) GLUCOSE (test code = 89 mg/dL 70-110 1975341825) CREATININE (test code = 0.54 mg/dL 0.50-1.04 9013610497) TOTAL BILI (test code = <0.1 0.1-1.1 L 0369662717) CALCIUM (test code = 9.0 mg/dL 8.6-10.6 9506186467) T PROTEIN (test code = 5.8 g/dL 6.3-8.2 L 7413978739) ALBUMIN (test code = 3.4 g/dL 3.5-5.0 L 1279625468) ALK PHOS (test code = 71 U/L 34-122 4655188036) ALTv (test code = 13 U/L 5-35 1742-6) AST(SGOT) (test code = 18 U/L 13-40 7578192064) eGFR (test code = mL/min/1.73m2 5710494046) MARCELLE (test code = MARCELLE) Association of [...] tests). Lab Interpretation Abnormal (test code = 99756-8) [facility] ArlingtonUrinalysis2021-06-25 17:30:33 Test Item Value Reference Range Interpretation Comments APPEARANCE (test code = Hazy Clear A 9444022782) COLOR (test code = Straw Yellow A 5695058897) PH (test code = 4.8-8.0 8496343037) SP GRAVITY (test code = 1.003-1.030 4984669697) GLU U QUAL (test code = Normal Normal 8321768264) BLOOD (test code = Negative Negative 5654247509) KETONES (test code = Negative Negative 1749496177) PROTEIN (test code = Negative Negative 2887-8) UROBILIN (test code = Normal Normal 9651534651) BILIRUBIN (test code = Negative Negative 9628254061) NITRITE (test code = Negative Negative 1672819579) LEUK WILBERT (test code = 500/uL Negative A 8412419235) RBC/HPF (test code = See_Comment [Autom ated message] 0645729672) The system [facility] generated this result transmitted ref erence range: 0 - 3 HP F. The reference range was not used to int erpret this result as normal/abnormal . WBC/HPF (test code = See_Comment H [Autom ated message] 5750536842) The system [facility] generated this result transmitted ref erence range: 0 - 5 HP F. The reference range was not used to int erpret this result as normal/abnormal . BACTERIA (test code = Few Negative A 2449480683) SQ EPITH (test code = HPF 5666325789) WBC CLUMPS (test code = See_Comment H [Au tomated message] 7377604262) The system [facility] generated this result transmitted ref erence range: <=1 HPF. The reference range was not used to int erpret this result as normal/abnormal . Lab Interpretation (test Abnormal code = 74496-4) [facility] [id number] 17:08:00 Test Item Value Reference Range Interpretation Comments POCT PREG (test code = 1605) negative On board controls acceptable with present C Line (test code = 3574) POCT PREG LOT # (test code = 3575) [id number] POCT PREG TEST DATE (test code = 357) Lab Interpretation (test code = Normal 08653-7) [facility]. Metabolic Panel (28712)2020-08-31 16:55:49 Test Item Value Reference Range Interpretation Comments NA (test code = 141 mmol/L 135-145 5440471027) K (test code = 3.9 mmol/L 3.5-5.0 3291311420) CL (test code = 106 mmol/L 98-108 3727932433) CO2 TOTAL (test code = 27 mmol/L 23-31 2387844110) AGAP (test code = 2-16 7511000972) BUN (test code = 5 mg/dL 7-23 L 3166236428) GLUCOSE (test code = 91 mg/dL 70-110 3972017582) CREATININE (test code = 0.68 mg/dL 0.50-1.04 6025834063) TOTAL BILI (test code = 0.2 mg/dL 0.1-1.5 [id number]) CALCIUM (test code = 10.0 mg/dL 8.6-10.6 7623615058) T PROTEIN (test code = 7.2 g/dL 6.3-8.2 2681896800) ALBUMIN (test code = 4.3 g/dL 3.5-5.0 6619349832) ALK PHOS (test code = 75 U/L 34-122 [id number]) ALTv (test code = 14 U/L 5-35 1742-6) AST(SGOT) (test code = 30 U/L 13-40 0480458054) eGFR (test code = mL/min/1.73m2 5336958189) MARCELLE (test code = MARCELLE) Association of [...] tests). Lab Interpretation Abnormal (test code = 39475-7) [facility] with [id number] 16:51:47 Test Item Value Reference Range Interpretation Comments WBC (test code = See_Comment [Automated 2290-2) message] The sy stem which generated this result transmitted reference range : 4.30 - 11.10 10*3/?L. The reference range was not used to interpret this result as normal/abnormal . RBC (test code = See_Comment [Automated 659-8) message] The sy stem which generated this [...] RDW-SD (test code = 43.1 fL 39.0-49.9 90672-4) RDW-CV (test code = 13.1 % 12.0-15.5 788-0) PLT (test code = See_Comment [Automated 777-3) message] The sy stem which generated this result transmitted reference range : 166 - 358 10*3/ ?L. The reference r david was not used to interpret this result as normal/abnormal . MPV (test code = 10.3 fL 9.5-12.9 48885-0) NRBC/100 WBC (test See_Comment [Automat ed code = 7369480544) message] The system which generated this result transmitted reference range : 0.0 - 10.0 /100 WBCs. The refer ence range was not u sed to interpret th is result as normal/abnormal . NRBC x10^3 (test code <0.01 See_Comment [Auto mated = 1673078936) message] The s ystem which generated this result transmitted reference range : 10*3/?L. The reference range was not used to interpret this result as normal/abnormal . GRAN MAT (NEUT) % 70.5 % (test code = 770-8) IMM GRAN % (test code 0.70 % = 8078333351) LYMPH % (test code = 19.0 % 736-9) MONO % (test code = 8.8 % 5905-5) EOS % (test code = 0.7 % 713-8) BASO % (test code = 0.3 % 706-2) GRAN MAT x10^3(ANC) 4.96 10*3/uL 1.88-7.09 (test code = 1813667148) IMM GRAN x10^3 (test 0.05 10*3/uL 0.00-0.06 code = 9365256764) LYMPH x10^3 (test code 1.34 10*3/uL 1.32-3.29 = 731-0) MONO x10^3 (test code 0.62 10*3/uL 0.33-0.92 = 742-7) EOS x10^3 (test code = 0.05 10*3/uL 0.03-0.39 711-2) BASO x10^3 (test code <0.03 0.01-0.07 = 704-7) Lab Interpretation Abnormal (test code = 39677-6) [facility] Whole [id number] 16:37:28 Test Item Value Reference Range Interpretation Comments LACTIC ACID (test code = 1.74 mmol/L 0.50-2.20 2469890811) Lab Interpretation (test code = Normal 75639-8) [facility]2021-[facility] 03:04:28 Test Item Value Reference Range Interpretation Comments APPEARANCE (test code = Clear Clear 5062946500) COLOR (test code = Colorless Yellow A 9054410479) PH (test code = 4.8-8.0 5265866500) SP GRAVITY (test code = 1.003-1.030 8286747913) GLU U QUAL (test code = Normal Normal 7346003401) BLOOD (test code = 2+ Negative A 3121568043) KETONES (test code = Negative Negative 9665273494) PROTEIN (test code = Negative Negative 2887-8) UROBILIN (test code = Normal Normal 5979179023) BILIRUBIN (test code = Negative Negative 3203046310) NITRITE (test code = Negative Negative 1227328529) LEUK WILBERT (test code = Negative Negative 6186830989) RBC/HPF (test code = See_Comment [Autom ated message] 2978843638) The system [employer] generated this result transmit con reference range : 0 - 3 HPF. The refe rence range was not u sed to interpret th is result as normal/abnormal . WBC/HPF (test code = <1 See_Comment [Autom ated message] 5348308874) The system [employer] generated this result transmit con reference range : 0 - 5 HPF. The refe rence range was not u sed to interpret th is result as normal/abnormal . BACTERIA (test code = Few Negative A 1405601202) SQ EPITH (test code = HPF 7174905032) Lab Interpretation (test Abnormal code = 27068-2) [facility] [id number] 02:44:00 Test Item Value Reference Range Interpretation Comments POCT PREG (test code = 1605) negative On board controls acceptable with present C Line (test code = 3574) POCT PREG LOT # (test code = 3575) [id number] POCT PREG TEST DATE (test 2022-03-08 code = 3576) Lab Interpretation (test code = Normal 33784-4) [facility] (ID NOW RAPID TESTING)2020-08-30 02:29:07 Test Item Value Reference Range Interpretation Comments SARS-CoV-2 Rapid ID NOW Positive Not Detected A (test code = 03492-7) MARCELLE (test code = MARCELLE) ID NOW COVID-19 Assay is an isothermal nucleic acid amplification test intended for the qualitative detection of nucleic acid from SARS-CoV-2 viral RNA in nasopharyngeal (BOTTLE LABEL INSPECTOR) specimens. It is used under Emergency Use [...] indicated. Lab Interpretation Abnormal (test code = 36568-0) [facility] [id number] 16:04:00 Test Item Value Reference Range Interpretation [...] code = 3257) Trace Negative - Negative [facility] W/O SPECIFIC [id number] 16:04:00 Test Item Value Reference Range Interpretation [...] code = 3257) Trace Negative - Negative [facility] URINALYSIS W/O SPECIFIC [id number] 16:04:00 Test Item Value Reference Range Interpretation [...] code = 3257) Trace Negative - Negative [facility]2021-03-08 02:02:48 Test Item Value Reference Range Interpretation Comments APPEARANCE (test code = Cloudy Clear A 3788259557) COLOR (test code = Yellow Yellow 6272951288) PH (test code = 4.8-8.0 2016284909) SP GRAVITY (test code = 1.003-1.030 3911720300) GLU U QUAL (test code = Normal Normal 6788248928) BLOOD (test code = 2+ Negative A 4581155526) KETONES (test code = Negative Negative 8438341464) PROTEIN (test code = 100 mg/dL Negative A 2887-8) UROBILIN (test code = Normal Normal 2892075618) BILIRUBIN (test code = Negative Negative 1880580806) NITRITE (test code = Negative Negative 7938566963) LEUK WILBERT (test code = 500/uL Negative A 9065982699) RBC/HPF (test code = See_Comment H [Autom ated message] 1204888667) The system [employer] generated this result transmit con reference range : 0 - 3 HPF. The refe rence range was not u sed to interpret th is result as normal/abnormal . WBC/HPF (test code = >182 See_Comment H [Autom ated message] 2023667728) The system [employer] generated this result transmit con reference range : 0 - 5 HPF. The refe rence range was not u sed to interpret th is result as normal/abnormal . BACTERIA (test code = Few Negative A 4868797839) MUCOUS (test code = Slight Negative LPF A 2825825625) SQ EPITH (test code = HPF 2415901682) WBC CLUMPS (test code = See_Comment H [Au tomated message] 0908391459) The system [employer] generated this result transmit con reference range : <=1 HPF. The refere nce range was not u sed to interpret th is result as normal/abnormal . Lab Interpretation (test Abnormal code = 61418-5) [facility] ArlingtonComplete Metabolic [id number] 02:00:26 Test Item Value Reference Range Interpretation Comments NA (test code = 139 mmol/L 135-145 7064747634) K (test code = 4.1 mmol/L 3.5-5.0 9942631344) CL (test code = 99 mmol/L 98-108 9335412376) CO2 TOTAL (test code = 32 mmol/L 23-31 H 8014475435) AGAP (test code = 2-16 6614417320) BUN (test code = 4 mg/dL 7-23 L 3068214393) GLUCOSE (test code = 102 mg/dL 70-110 0246809822) CREATININE (test code = 0.63 mg/dL 0.50-1.04 2252776835) TOTAL BILI (test code = 0.8 mg/dL 0.1-1.5 5161831852) CALCIUM (test code = 10.2 mg/dL 8.6-10.6 2365804811) T PROTEIN (test code = 8.3 g/dL 6.3-8.2 H 8786235347) ALBUMIN (test code = 5.3 g/dL 3.5-5.0 H 9780233103) ALK PHOS (test code = 80 U/L 34-122 9924035553) ALTv (test code = 13 U/L 5-35 1742-6) AST(SGOT) (test code = 24 U/L 13-40 6837972314) eGFR Calculation mL/min/1.73m2 (Non-) (test code = 7929829295) eGFR Calculation mL/min/1.73m2 () (test code = 5491922193) MARCELLE (test code = MARCELLE) Association of [...] tests). Lab Interpretation Abnormal (test code = 57341-6) [facility] with [id number] 01:59:51 Test Item Value Reference Range Interpretation Comments WBC (test code = See_Comment H [Automated 1046-2) message] The system which generated this result transmit con reference range : 4.30 - 11.10 10*3/?L. The reference range was not used to interpret this result as normal/abnormal . RBC (test code = See_Comment [Automated 766-9) message] The system which generated this result [...] RDW-SD (test code = 40.9 fL 39.0-49.9 87885-5) RDW-CV (test code = 12.4 % 12.0-15.5 788-0) PLT (test code = See_Comment [Automated 777-3) message] The system which generated this result transmit con reference range : 166 - 358 10*3/ ?L. The reference range was not u sed to interpret th is result as normal/abnormal . MPV (test code = 10.1 fL 9.5-12.9 15030-1) NRBC/100 WBC (test See_Comment [Automat ed code = 1582952349) message] The system which generated this result transmit con reference range : 0.0 - 10.0 /100 WBCs. The reference range was not used to interpret this result as normal/abnormal . NRBC x10^3 (test code <0.01 See_Comment [Auto mated = 4558156293) message] The system which generated this result transmit con reference range : 10*3/?L. The reference range was not used to interpret this result as normal/abnormal . GRAN MAT (NEUT) % 78.8 % (test code = 770-8) IMM GRAN % (test code 1.00 % = 0115483562) LYMPH % (test code = 12.8 % 736-9) MONO % (test code = 6.5 % 5905-5) EOS % (test code = 0.5 % 713-8) BASO % (test code = 0.4 % 706-2) GRAN MAT x10^3(ANC) 15.38 10*3/uL 1.88-7.09 H (test code = 7179471172) IMM GRAN x10^3 (test 0.19 10*3/uL 0.00-0.06 H code = 2030092449) LYMPH x10^3 (test code 2.49 10*3/uL 1.32-3.29 = 731-0) MONO x10^3 (test code 1.26 10*3/uL 0.33-0.92 H = 742-7) EOS x10^3 (test code = 0.09 10*3/uL 0.03-0.39 711-2) BASO x10^3 (test code 0.07 10*3/uL 0.01-0.07 = 704-7) Lab Interpretation Abnormal (test code = 02584-2) [facility] [id number] 01:08:00 Test Item Value Reference Range Interpretation Comments POCT PREG (test code = 1605) negative On board controls acceptable with positive C Line (test code = 3574) POCT PREG LOT # (test code = 3575) [id number] POCT PREG TEST DATE (test 12/06/2021 code = 3576) Lab Interpretation (test code = Normal 78853-7) [facility] URINALYSIS W/O SPECIFIC [id number] 19:59:00 Test Item Value Reference Range Interpretation [...] Negative [facility] URINALYSIS W/O SPECIFIC [id number] 19:59:00 Test Item Value Reference Range Interpretation [...] code = 3257) negative Negative - Negative [facility] [id number] 19:41:00 Test Item Value Reference Range Interpretation Comments POCT PREG (test code = 1605) Negative On board controls acceptable with C Yes Line (test code = 3574) POCT PREG LOT # (test code = 3575) POCT PREG TEST DATE (test code = 3576) [facility]PO[facility] [id number] 19:41:00 Test Item Value Reference Range Interpretation Comments POCT PREG (test code = 1605) Negative On board controls acceptable with C Yes Line (test code = 3574) POCT PREG LOT # (test code = 3575) POCT PREG TEST DATE (test code = 3576) [facility] ArlingtonXR CHEST 1 [id number] 15:44:00HISTORY: Cough. TECHNIQUE: Portable AP erect view of the chest is obtained. Comparison madewith 07/28/2019 study. FINDINGS: No acute pneumonia. No pneumothorax or pleural effusion orpulmonary congestiondetected. Cardiac size is within normal limits. Smallcalcified granulomas are suspected in left middle and lower lung zones. CONCLUSIONS: No signs of acute cardiopulmonary disease.[facility], Radiant ResultsInft User - 08/18/2019 10:45 AM CDTHISTORY: Cough.TECHNIQUE: Portable AP erect view of the chest is obtained. Comparison madewith 07/28/2019 study.FINDINGS: No acute pneumonia. No pneumothorax or pleural effusion orpulmonary congestion detected. Cardiac size is within normal limits. Smallcalcified granulomas are suspected in left middle and lower lung zones.CONCLUSIONS: No signs of acute cardiopulmonary disease.[facility] ArlingtonCBC WITH [id number] 15:25:00 Test Item Value Reference Range Interpretation Comments WBC (test code = See_Comment H [Automated 2515-2) message] The sy stem which generated this [...] RDW-SD (test code = 42.2 fL 39-49.9 33319-3) RDW-CV (test code = 13.1 % 12-15.5 788-0) PLT (test code = See_Comment H [Automated 777-3) message] The sy stem which generated this result transmitted reference range : 166 - 358 10*3/ ?L. The reference r david was not used to interpret this result as normal/abnormal . MPV (test code = 10.3 fL 9.5-12.9 86603-1) NRBC/100 WBC (test See_Comment [Automat ed code = 5026120743) message] The system which generated this result transmitted reference range : 0.0 - 10.0 /100 WBCs. The refer ence range was not u sed to interpret th is result as normal/abnormal . NRBC x10^3 (test code <0.01 See_Comment [Auto mated = 6193682163) message] The s ystem which generated this result transmitted reference range : 10*3/?L. The reference range was not used to interpret this result as normal/abnormal . GRAN MAT (NEUT) % 57.0 % (test code = 770-8) IMM GRAN % (test code 0.90 % = 7674467690) LYMPH % (test code = 31.7 % 736-9) MONO % (test code = 8.1 % 5905-5) EOS % (test code = 1.8 % 713-8) BASO % (test code = 0.5 % 706-2) GRAN MAT x10^3(ANC) 7.49 10*3/uL 1.88-7.09 H (test code = 2722926853) IMM GRAN x10^3 (test 0.12 10*3/uL 0-0.06 H code = 6150759204) LYMPH x10^3 (test code 4.16 10*3/uL 1.32-3.29 H = 731-0) MONO x10^3 (test code 1.07 10*3/uL 0.33-0.92 H = 742-7) EOS x10^3 (test code = 0.23 10*3/uL 0.03-0.39 711-2) BASO x10^3 (test code 0.06 10*3/uL 0.01-0.07 = 704-7) Lab Interpretation Abnormal (test code = 40685-3) [facility] ArlingtonPREG[facility]NCY TEST, [id number] 14:52:00 Test Item Value Reference Range Interpretation Comments PREG SERUM (test code Negative = 6802666572) MARCELLE (test code = MARCELLE) Less than 10 IU/L. ?If low titer or ectopic is suspected, resubmit specimen in 48-72 hours. [facility] Metabolic Panel (NA, K, CL, CO2, GLUCOSE, BUN, CREATININE, CA)2019-08-18 14:48:00 Test Item Value Reference Range Interpretation Comments NA (test code = 141 mmol/L 135-145 5656237602) K (test code = 3.9 mmol/L 3.5-5 1290146429) CL (test code = 111 mmol/L 98-108 H 9370806648) CO2 TOTAL (test code = 21 mmol/L 23-31 L 9957260736) AGAP (test code = 2-16 1842655835) BUN (test code = 14 mg/dL 7-23 7099151363) GLUCOSE (test code = 92 mg/dL 70-110 8967055589) CREATININE (test code = 0.80 mg/dL 0.5-1.04 2539565061) CALCIUM (test code = 9.3 mg/dL 8.6-10.6 9115946422) eGFR Calculation mL/min/1.73m2 (Non-) (test code = 4759933682) eGFR Calculation mL/min/1.73m2 () (test code = 1270573075) MARCELLE (test code = MARCELLE) Association of [...] tests). Lab Interpretation Abnormal (test code = 38782-5) [facility] ArlingtonHepatic Function Panel (ALB, T.PRO, BILI T, BU/BC, ALT, AST, ALK PHOS)2019-08-18 14:48:00 Test Item Value Reference Range Interpretation Comments TOTAL BILI (test code = 5733180983) 0.4 mg/dL 0.1-1.1 BILI UNCON (test code = 1082248879) 0.4 mg/dL 0.1-1.1 BILI CONJ (test code = 5966283792) 0.0 mg/dL 0-0.3 T PROTEIN (test code = 4318622020) 8.1 g/dL 6.3-8.2 ALBUMIN (test code = 3727564528) 4.7 g/dL 3.5-5 ALK PHOS (test code = 8591771583) 74 U/L 34-122 ALTv (test code = 1742-6) 17 U/L 5-35 AST(SGOT) (test code = 8349950362) 27 U/L 13-40 Lab Interpretation (test code = Normal 27680-6) [facility] ArlingtonaPTT2020-06-11 14:46:00 Test Item Value Reference Range Interpretation Comments APTT Patient (test See_Comment H [Automat ed code = 3173-2) message] The system which generated this result transmitted reference range : 23 - 38 Seconds . The reference range was not used to interpr et this result as normal/abnormal . MARCELLE (test code = MARCELLE) The [facility] patient population mean normal value for aPTT is 30 seconds. Lab Interpretation Abnormal (test code = 48751-4) [facility] FOR GROUP [id number] 14:46:00 Test Item Value Reference Range Interpretation Comments Streptococcus pyogenes (group A) Negative Negative antigen (test code = 26653-2) Lab Interpretation (test code = Normal 76697-1) [facility] ArlingtonProthrombin Time (PT) / [id number] 14:43:00 Test Item Value Reference Range Interpretation [...] tions. Lab Interpretation (test Normal code = 24480-5) [facility]COVID-19 (ID NOW RAPID TESTING)2019-08-18 14:43:00 Test Item Value Reference Range Interpretation Comments SARS-CoV-2 Rapid ID NOW Not Detected Not Detected (test code = 71944-6) MARCELLE (test code = MARCELLE) ID NOW COVID-19 Assay is an isothermal nucleic acid amplification test intended for the qualitative detection of nucleic acid from SARS-CoV-2 viral RNA in nasopharyngeal (BOTTLE LABEL INSPECTOR) specimens. It is used under Emergency Use [...] indicated. Lab Interpretation Normal (test code = 49332-5) [facility]. METABOLIC PANEL (45156)2019-07-29 03:00:00 Test Item Value Reference Range Interpretation Comments NA (test code = 141 mmol/L 135-145 0927601198) K (test code = 3.8 mmol/L 3.5-5 9140723882) CL (test code = 105 mmol/L 98-108 0804579158) CO2 TOTAL (test code = 27 mmol/L 23-31 7287146487) AGAP (test code = 2-16 4224738892) BUN (test code = 11 mg/dL 7-23 0041921159) GLUCOSE (test code = 91 mg/dL 70-110 1915746552) CREATININE (test code 0.58 mg/dL 0.5-1.04 = 8231006922) TOTAL BILI (test code 0.4 mg/dL 0.1-1.1 = 6081119609) CALCIUM (test code = 9.9 mg/dL 8.6-10.6 3905429720) T PROTEIN (test code = 7.3 g/dL 6.3-8.2 5919044060) ALBUMIN (test code = 4.5 g/dL 3.5-5 9190080816) ALK PHOS (test code = 53 U/L 34-122 0315998068) ALTv (test code = 12 U/L 5-35 1742-6) AST(SGOT) (test code = 27 U/L 13-40 5464632191) eGFR Calculation mL/min/1.73m2 (Non-) (test code = 6759491414) eGFR Calculation mL/min/1.73m2 () (test code = 0731700603) MARCELLE (test code = MARCELLE) Association of [...] or urine or abnormalities in imaging tests). [facility] ArlingtonDESTINI [id number] 02:43:00 Test Item Value Reference Range Interpretation Comments TROPONIN I (test <0.012 See_Comment [Automated code = 7147153036) message] The system which generated this result [...] ? Lab Interpretation Normal (test code = 95203-6) [facility] ArlingtonD-[id number] 02:32:00 Test Item Value Reference Interpretation Comments Range D-DIMER (test code = See_Comment H [Autom ated 6056547412) message] The system which generated this result [...] diagnosis. Lab Interpretation Abnormal (test code = 05522-8) [facility] ArlingtonCB WITH [id number] 02:21:00 Test Item Value Reference Range Interpretation Comments WBC (test code = See_Comment H [Automated 0390-2) message] The sy stem which generated this result transmitted reference range : 4.30 - 11.10 10*3/?L. The reference range was not used to interpret this result as normal/abnormal . RBC (test code = See_Comment [Automated 369-8) message] The sy stem which generated this [...] RDW-SD (test code = 40.0 fL 39-49.9 70742-3) RDW-CV (test code = 12.5 % 12-15.5 788-0) PLT (test code = See_Comment [Automated 777-3) message] The sy stem which generated this result transmitted reference range : 166 - 358 10*3/ ?L. The reference r david was not used to interpret this result as normal/abnormal . MPV (test code = 10.4 fL 9.5-12.9 34709-9) NRBC/100 WBC (test See_Comment [Automat ed code = 3691130904) message] The system which generated this result transmitted reference range : 0.0 - 10.0 /100 WBCs. The refer ence range was not u sed to interpret th is result as normal/abnormal . NRBC x10^3 (test code <0.01 See_Comment [Auto mated = 9085549624) message] The s ystem which generated this result transmitted reference range : 10*3/?L. The reference range was not used to interpret this result as normal/abnormal . GRAN MAT (NEUT) % 58.3 % (test code = 770-8) IMM GRAN % (test code 0.80 % = 9742486540) LYMPH % (test code = 32.1 % 736-9) MONO % (test code = 6.7 % 5905-5) EOS % (test code = 1.7 % 713-8) BASO % (test code = 0.4 % 706-2) GRAN MAT x10^3(ANC) 6.48 10*3/uL 1.88-7.09 (test code = 6029014876) IMM GRAN x10^3 (test 0.09 10*3/uL 0-0.06 H code = 5819247474) LYMPH x10^3 (test code 3.57 10*3/uL 1.32-3.29 H = 731-0) MONO x10^3 (test code 0.75 10*3/uL 0.33-0.92 = 742-7) EOS x10^3 (test code = 0.19 10*3/uL 0.03-0.39 711-2) BASO x10^3 (test code 0.04 10*3/uL 0.01-0.07 = 704-7) Lab Interpretation Abnormal (test code = 64905-4) [facility] ArlingtonXR CHEST 2 [id number] 02:02:09 No acute cardiopulmonary process. Preliminary Report Dictated by Resident: Carlos Guzman MD., have reviewed this study and agree with the abovereport.EXAM: XR CHEST 2 VW CLINICAL INDICATION: cough and SOB COMPARISON: 09/21/2017 TECHNIQUE: Frontal and lateral views of the chest wereobtained. FINDINGS: No focal consolidation, pleural effusion, or pneumothorax. The cardiac silhouette is normal in size. No acute osseous abnormality. [facility], Radiant Results Inft User - [...] reviewed this study and agree with the abovereport.[facility] COVID-19 (ID NOW RAPID TESTING)2019-07-28 23:48:00 Test Item Value Reference Range Interpretation Comments SARS-CoV-2 Rapid ID NOW Not Detected Not Detected (test code = 06949-3) MARCELLE (test code = MARCELLE) ID NOW COVID-19 Assay is an isothermal nucleic acid amplification test intended for the qualitative detection of nucleic acid from SARS-CoV-2 viral RNA in nasopharyngeal (BOTTLE LABEL INSPECTOR) specimens. It is used under Emergency Use [...] indicated. Lab Interpretation Normal (test code = 69271-9) [facility] ArlingtonPOCT [id number] 23:19:00 Test Item Value Reference Range Interpretation Comments POCT PREG (test code = 1605) Negative On board controls acceptable with Present C Line (test code = 3574) POCT PREG LOT # (test code = 3575) [id number] POCT PREG TEST DATE (test 10/06/2020 code = 3576) Lab Interpretation (test code = Normal 06096-2) [facility] ABDOMEN PELVIS WO [id number] 01:14:52 No acute intra-abdominal process. EXAM: CT [...] lytic or sclerotic bony lesions.IMPRESSIONNo acute intra-abdominal process.[facility] ArlingtonBasi Metabolic Panel (NA, K, CL, CO2, GLUCOSE, BUN, CREATININE, CA)2019-06-27 00:52:00 Test Item Value Reference Range Interpretation Comments NA (test code = 139 mmol/L 135-145 6996147277) K (test code = 4.3 mmol/L 3.5-5 8351095253) CL (test code = 103 mmol/L 98-108 3847957513) CO2 TOTAL (test code = 26 mmol/L 23-31 9525102440) AGAP (test code = 2-16 2282155276) BUN (test code = 9 mg/dL 7-23 5211919915) GLUCOSE (test code = 90 mg/dL 70-110 1150603733) CREATININE (test code 0.56 mg/dL 0.5-1.04 = 7513485259) CALCIUM (test code = 9.4 mg/dL 8.6-10.6 8884093759) eGFR Calculation mL/min/1.73m2 (Non-) (test code = 7756480964) eGFR Calculation mL/min/1.73m2 () (test code = 3685641848) MARCELLE (test code = MARCELLE) Association of [...] or urine or abnormalities in imaging tests). [facility] [id number] 00:46:00 Test Item Value Reference Range Interpretation Comments APPEARANCE (test code = Hazy Clear A 3387291033) COLOR (test code = Yellow Yellow 7497738673) PH (test code = 4.8-8.0 7181809832) SP GRAVITY (test code = 1.003-1.030 5408004131) GLU U QUAL (test code = Normal Normal 9830815547) BLOOD (test code = Negative Negative Interfere nce from 9679903684) ascorbic acid m ay cause false neg ative results. KETONES (test code = Negative Negative 2834886717) PROTEIN (test code = Negative Negative 2887-8) UROBILIN (test code = Normal Normal 1514447448) BILIRUBIN (test code = Negative Negative 6912150928) NITRITE (test code = Negative Negative 5899853807) LEUK WILBERT (test code = 25/uL Negative A 9086534836) RBC/HPF (test code = See_Comment [Autom ated message] 3903545648) The system [employer] generated this result transmitted ref erence range: 0 - 3 HP F. The reference range was not used to int erpret this result as normal/abnormal . WBC/HPF (test code = See_Comment H [Autom ated message] 7864012485) The system [employer] generated this result transmitted ref erence range: 0 - 5 HP F. The reference range was not used to int erpret this result as normal/abnormal . BACTERIA (test code = Few Negative A 4822041468) MUCOUS (test code = Slight Negative LPF A 4700279250) SQ EPITH (test code = See_Comment H [Auto mated message] 3658034437) The system [employer] generated this result transmitted ref erence range: <=2 HPF. The reference range was not used to int erpret this result as normal/abnormal . ASCORBIC ACID (test 20 mg/dL+ code = 5554979392) Lab Interpretation Abnormal (test code = 00801-8) [facility] WITH [id number] 00:43:00 Test Item Value Reference Range Interpretation Comments WBC (test code = See_Comment [Automated 3490-2) message] The sy stem which generated this result transmitted reference range : 4.30 - 11.10 10*3/?L. The reference range was not used to interpret this result as normal/abnormal . RBC (test code = See_Comment [Automated 259-8) message] The sy stem which generated this [...] (test code = 38.9 fL 39-49.9 L 33816-9) RDW-CV (test code = 12.1 % 12-15.5 788-0) PLT (test code = See_Comment [Automated 777-3) message] The sy stem which generated this result transmitted reference range : 166 - 358 10*3/ ?L. The reference r david was not used to interpret this result as normal/abnormal . MPV (test code = 10.1 fL 9.5-12.9 47574-0) NRBC/100 WBC (test See_Comment [Automat ed code = 5922793790) message] The system which generated this result transmitted reference range : 0.0 - 10.0 /100 WBCs. The refer ence range was not u sed to interpret th is result as normal/abnormal . NRBC x10^3 (test code <0.01 See_Comment [Auto mated = 5793179502) message] The s ystem which generated this result transmitted reference range : 10*3/?L. The reference range was not used to interpret this result as normal/abnormal . GRAN MAT (NEUT) % 62.9 % (test code = 770-8) IMM GRAN % (test code 0.50 % = 9681668505) LYMPH % (test code = 28.0 % 736-9) MONO % (test code = 7.0 % 5905-5) EOS % (test code = 1.1 % 713-8) BASO % (test code = 0.5 % 706-2) GRAN MAT x10^3(ANC) 5.81 10*3/uL 1.88-7.09 (test code = 2652498622) IMM GRAN x10^3 (test 0.05 10*3/uL 0-0.06 code = 3734423048) LYMPH x10^3 (test code 2.59 10*3/uL 1.32-3.29 = 731-0) MONO x10^3 (test code 0.65 10*3/uL 0.33-0.92 = 742-7) EOS x10^3 (test code = 0.10 10*3/uL 0.03-0.39 711-2) BASO x10^3 (test code 0.05 10*3/uL 0.01-0.07 = 704-7) Lab Interpretation Abnormal (test code = 43074-4) [facility] Test, [id number] 00:37:00 Test Item Value Reference Range Interpretation Comments POCT PREG (test code = 1605) Negative On board controls acceptable with Present C Line (test code = 3574) POCT PREG LOT # (test code = 3575) [id number] POCT PREG TEST DATE (test 11/06/2020 code = 3576) Lab Interpretation (test code = Normal 12391-0) [facility] URINALYSIS W/O SPECIFIC [id number] 18:32:00 Test Item Value Reference Range Interpretation [...] Negative [facility] URINALYSIS W/O SPECIFIC [id number] 18:32:00 Test Item Value Reference Range Interpretation [...] = 3257) about 250 Negative - Negative [facility] Test Item Value Reference Range Interpretation Comments APPEARANCE (test code = Clear Clear 5564937299) COLOR (test code = Straw Yellow A 9402653206) PH (test code = 4.8-8.0 0214711389) SP GRAVITY (test code = 1.003-1.030 1298049989) GLU U QUAL (test code = Normal Normal 1119997612) BLOOD (test code = Negative Negative 7536377994) KETONES (test code = Negative Negative 3421955525) PROTEIN (test code = Negative Negative 2887-8) UROBILIN (test code = Normal Normal 5530308644) BILIRUBIN (test code = Negative Negative 0998216212) NITRITE (test code = Negative Negative 1373029681) LEUK WILBERT (test code = Negative Negative 2564966994) RBC/HPF (test code = See_Comment [Autom ated message] 8274151794) The system [employer] generated this result transmitted ref erence range: 0 - 3 HP F. The reference range was not used to int erpret this result as normal/abnormal . WBC/HPF (test code = <1 See_Comment [Autom ated message] 2339619221) The system [employer] generated this result transmitted ref erence range: 0 - 5 HP F. The reference range was not used to int erpret this result as normal/abnormal . BACTERIA (test code = Negative Negative 9821478657) SQ EPITH (test code = HPF 2800612664) Lab Interpretation (test Abnormal code = 71973-2) [facility] / [facility] - DRUG SCREEN [id number] 19:43:00 Test Item Value Reference Range Interpretation Comments BENZO U (test code = Negative Negative 0570483833) VALERIE U (test code = Negative Negative 0586860388) AMPHET (test code = Negative Negative 8447497593) THC (test code = Negative Negative 7128425898) METHADONE (test code = Negative Negative 3829362153) Meth U (test code = Negative Negative 3325035514) OPIATES (test code = Negative Negative 4522257088) Cocaine Metabolite (test Negative Negative code = 3655012516) PROPOXY (test code = Negative Negative 8179826198) Tric U (test code = Negative Negative 0527110944) PCP (test code = Negative Negative 6682218960) OXYCOD (test code = Negative Negative 2580694695) MARCELLE (test code = MARCELLE) Urine Drug [...] testing). Lab Interpretation (test Normal code = 14942-0) [facility] [id number] 19:21:00 Test Item Value Reference Range Interpretation Comments POCT PREG (test code = 1605) negative On board controls acceptable with present C Line (test code = 3574) POCT PREG LOT # (test code = [id number]) POCT PREG TEST DATE (test code = 3576) Lab Interpretation (test code = Normal 98485-6) [facility] Metabolic [id number] 18:07:00 Test Item Value Reference Range Interpretation Comments NA (test code = 141 mmol/L 135-145 8708264662) K (test code = 4.3 mmol/L 3.5-5 0175617295) CL (test code = 104 mmol/L 98-108 2597042069) CO2 TOTAL (test code = 25 mmol/L 23-31 0272185353) AGAP (test code = 2-16 1350336171) BUN (test code = 13 mg/dL 7-23 9353585848) GLUCOSE (test code = 95 mg/dL 70-110 8269252913) CREATININE (test code = 0.68 mg/dL 0.5-1.04 1011819346) TOTAL BILI (test code = 0.3 mg/dL 0.1-1.7 1523466985) CALCIUM (test code = 10.2 mg/dL 8.6-10.6 8908158457) T PROTEIN (test code = 7.6 g/dL 6.3-8.2 3853224380) ALBUMIN (test code = 5.1 g/dL 3.5-5 H 9339860493) ALK PHOS (test code = 79 U/L 34-122 6531657607) ALTv (test code = 13 U/L 5-35 1742-6) AST(SGOT) (test code = 21 U/L 13-40 7516814646) eGFR Calculation mL/min/1.73m2 (Non-) (test code = 0784700534) eGFR Calculation mL/min/1.73m2 () (test code = 8804989922) MARCELLE (test code = MARCELLE) Association of [...] tests). Lab Interpretation Abnormal (test code = 47864-8) [facility], [id number] 18:07:00 Test Item Value Reference Range Interpretation Comments LIPASE (test code = 1010784234) 44 U/L 0-220 Lab Interpretation (test code = Normal 43105-2) [facility] WITH [id number] 17:57:00 Test Item Value Reference Range Interpretation Comments WBC (test code = See_Comment [Automated message] 6690-2) The system [employer] generated this result transmitted ref erence range: 4.30 - 1 1.10 10*3/?L. The re ference range was not u sed to interpret this result as normal/abnor mal. RBC (test code = See_Comment [Automated message] 789-8) The system [employer] generated this result transmitted ref erence range: [...] RDW-SD (test code 40.2 fL 39-49.9 = 90457-3) RDW-CV (test code 12.4 % 12-15.5 = 788-0) PLT (test code = See_Comment [Automated message] 777-3) The system [employer] generated this result transmitted ref erence range: 166 - 35 8 10*3/?L. The re ference range was not u sed to interpret this result as normal/abnor mal. MPV (test code = 10.4 fL 9.5-12.9 74833-0) NRBC/100 WBC (test See_Comment [Automat ed message] code = 4816759236) The syste [employer] which generated this result transmitted ref erence range: 0.0 - 10 .0 /100 WBCs. The refer ence range was not u sed to interpret this result as normal/abnor mal. NRBC x10^3 (test <0.01 See_Comment [Automated message] code = 6451465918) The syste m which generated this result transmitted ref erence range: 10*3/?L. The reference range was not used to interpr et this result as normal/abnormal . GRAN MAT (NEUT) % 62.6 % (test code = 770-8) IMM GRAN % (test 0.60 % code = 2317703060) LYMPH % (test code 27.3 % = 736-9) MONO % (test code 7.2 % = 5905-5) EOS % (test code = 1.9 % 713-8) BASO % (test code 0.4 % = 706-2) GRAN MAT 5.98 10*3/uL 1.88-7.09 x10^3(ANC) (test code = 1922943111) IMM GRAN x10^3 0.06 10*3/uL 0-0.06 (test code = 8616111792) LYMPH x10^3 (test 2.61 10*3/uL 1.32-3.29 code = 731-0) MONO x10^3 (test 0.69 10*3/uL 0.33-0.92 code = 742-7) EOS x10^3 (test 0.18 10*3/uL 0.03-0.39 code = 711-2) BASO x10^3 (test 0.04 10*3/uL 0.01-0.07 code = 704-7) [facility] 1/2 AG-AB WITH [id number] 08:33:00 Test Item Value Reference Range Interpretation Comments HIV Negative Negative Semi-quantitative (test code = 24979-2) MARCELLE (test code = Non-reactive for HIV-1 MARCELLE) antigen and HIV-1/HIV-2 antibodies. ?No laboratory evidence of HIV infection. ?Repeat in 2-4 weeks if acute HIV infection is suspected. [facility] 1/2 AG-AB WITH [id number] 08:33:00 Test Item Value Reference Range Interpretation Comments HIV Negative Negative Semi-quantitative (test code = 17974-5) MARCELLE (test code = Non-reactive for HIV-1 MARCELLE) antigen and HIV-1/HIV-2 antibodies. ?No laboratory evidence of HIV infection. ?Repeat in 2-4 weeks if acute HIV infection is suspected. [facility]
[2021-02-16 07:52] LABS: SARS-COV-2 RT PCR NEGATIVE (NEGATIVE)
--- NOTE | 2021-02-16 07:58 | ER ---
Nurse's Notes [facility] Name: Mile Wang Age: 26 yrs Sex: Female : 1995 Arrival Date: 02/16/2021 Time: 06:05 Bed 6 Private MD: Diagnosis: Acute upper respiratory infection, unspecified Presentation: 02/16 06:24 Chief complaint: Patient states: body aches, headache, shortness of breath, vomiting as6 x1. Coronavirus screen: Vaccine status: Patient reports receiving the 1st dose of the Covid vaccine. Ebola Screen: No symptoms or risks identified at this time. Initial Sepsis Screen: Does the patient meet any 2 criteria? No. Patient's initial sepsis screen is negative. Does the patient have a suspected source of infection? No. Patient's initial sepsis screen is negative. Risk Assessment: Do you want to hurt yourself or someone else? Patient reports no desire to harm self or others. Onset of symptoms was February 15, 2021. 06:24 Method Of Arrival: Ambulatory as6 06:24 Acuity: BAIRON 4 as6 Historical: - Allergies: 06:27 Doxycycline; as6 06:27 Macrobid; as6 06:27 tramadol; as6 06:27 Vimpat; as6 - Home Meds: 06:27 buspirone 10 mg Oral tab 1 tab 2 times per day [Active]; Lamictal 100 mg Oral tab 1 tab as6 2 times per day [Active]; [place] Carbonate Oral [Active]; [place] Carbonate 900 mg Oral 1 tab nightly [Active]; - PMHx: 06:27 Anxiety; Bipolar disorder; Psychogenic Seizures; Seizures; stent in gallbladder; as6 - PSHx: 06:27 Cholecystectomy; Tonsillectomy; as6 - Immunization history:: Client reports receiving the 1st dose of the Covid vaccine, Last tetanus immunization: up to date Flu vaccine is up to date. - Social history:: Smoking status: Patient denies any tobacco usage or history of. Screenin:33 Abuse screen: Denies threats or abuse. Nutritional screening: No deficits noted. as6 Tuberculosis screening: No symptoms or risk factors identified. Fall Risk None identified. Assessment: 06:28 General: Appears in no apparent distress. comfortable, Behavior is calm, cooperative. as6 Pain: Complains of pain in bodyaches. Neuro: Level of Consciousness is awake, alert, obeys commands, Oriented to person, place, time, situation, Reports headache weakness. Cardiovascular: Reports shortness of breath, Capillary refill < 3 seconds Patient's skin is warm and dry. Respiratory: Reports shortness of breath Airway is patent Trachea midline Respiratory effort is even, unlabored, Respiratory pattern is regular, symmetrical. GI: Reports vomiting. Derm: Skin is intact, is healthy with good turgor. 08:20 Reassessment: PT D/C HOME AMBULATORY, DX WITH URI. bp Vital Signs: 06:24 BP 129 / 76; Pulse 85; Resp 20 S; Temp 98.8(O); Pulse Ox 100% on R/A; Weight 83.91 kg as6 (R); Height 5 ft. 3 in. (160.02 cm) (R); Pain 8/10; 08:20 BP 127 / 83; Pulse 72; Resp 16; Pulse Ox 100% ; bp 06:24 Body Mass Index 32.77 (83.91 kg, 160.02 cm) as6 ED Course: 06:05 Patient arrived in ED. bp1 06:10 Ted Gu NP is PHCP. pm1 06:10 Zen Villanueva MD is Attending Physician. pm1 06:16 Natanael Quezada RN is Primary Nurse. as6 06:27 Triage completed. as6 06:28 Arm band placed on. as6 06:33 Bed in low position. Call light in reach. Side rails up X2. Pulse ox on. NIBP on. as6 07:11 Primary Nurse role handed off by Natanael Quezada RN eb 08:20 Davon Santillan, JUAN M is Primary Nurse. bp 08:21 No provider procedures requiring assistance completed. Patient did not have IV access bp during this emergency room visit. Administered Medications: No medications were administered Outcome: 07:58 Discharge ordered by MD. pm1 08:21 Discharged to home ambulatory. bp 08:21 Condition: stable 08:21 Discharge instructions given to patient, Instructed on discharge instructions, follow up and referral plans. Demonstrated understanding of instructions, follow-up care. 08:22 Patient left the ED. Signatures: Beverley Holland RN RN Ted Gu NP PATTERN PERFORATING MACHINE OPERATOR pm1 Davon Santillan, Elsy Mendoza RNiauga, Shantal bp1 Natanael Quezada, RN RN as6
--- NOTE | 2021-02-16 07:59 | EDPHYS ---
Physician Documentation [facility] Name: Mile Wang Age: 26 yrs Sex: Female : 1995 Arrival Date: 02/16/2021 Time: 06:05 Bed 6 Private MD: JIM Physician Zen Villanueva HPI: 02/16 06:37 This 26 yrs old Female presents to ER via Ambulatory with complaints of Headache, pm1 Shortness Of Breath, Vomiting. 06:37 The patient or guardian reports cough. Onset: The symptoms/episode began/occurred pm1 yesterday. Severity of symptoms: in the emergency department the symptoms have improved. Modifying factors: The symptoms are alleviated by nothing, the symptoms are aggravated by nothing. Associated signs and symptoms: Pertinent positives: Headache, vomit x 1 last night around 2300, body aches, shortness of breath, Pertinent negatives: chest pain, diarrhea, fever, rhinorrhea, sore throat. The patient has not recently seen a physician. Reports onset headache, body aches, cough, shortness of breath, and one episode of vomiting last night. Patient reports vomiting x1 at 2300 yesterday when she attempted to eat. Patient able to consume 1 gallon of water without any difficulties throughout her shift from 2200 to 0600. Historical: - Allergies: 06:27 Doxycycline; as6 06:27 Macrobid; as6 06:27 tramadol; as6 06:27 Vimpat; as6 - Home Meds: 06:27 buspirone 10 mg Oral tab 1 tab 2 times per day [Active]; Lamictal 100 mg Oral tab 1 tab as6 2 times per day [Active]; [place] Carbonate Oral [Active]; [place] Carbonate 900 mg Oral 1 tab nightly [Active]; - PMHx: 06:27 Anxiety; Bipolar disorder; Psychogenic Seizures; Seizures; stent in gallbladder; as6 - PSHx: 06:27 Cholecystectomy; Tonsillectomy; as6 - Immunization history:: Client reports receiving the 1st dose of the Covid vaccine, Last tetanus immunization: up to date Flu vaccine is up to date. - Social history:: Smoking status: Patient denies any tobacco usage or history of. ROS: 06:37 Eyes: Negative for injury, pain, redness, and discharge, Neck: Negative for injury, pm1 pain, and swelling. 06:37 Cardiovascular: Negative for chest pain, palpitations, and edema. 06:37 Back: Negative for injury and pain, MS/Extremity: Negative for injury and deformity, Skin: Negative for injury, rash, and discoloration. 06:37 Constitutional: Positive for body aches, Negative for chills, fever. 06:37 ENT: Negative for ear pain, sore throat. 06:37 Respiratory: Positive for cough, shortness of breath. 06:37 Abdomen/GI: Positive for vomiting, Negative for abdominal pain, nausea, diarrhea. 06:37 Neuro: Positive for headache, Negative for numbness, tingling, weakness. 06:37 All other systems are negative. Exam: 06:37 Constitutional: This is a well developed, well nourished patient who is awake, alert, pm1 and in no acute distress. Head/Face: Normocephalic, atraumatic. 06:37 Back: No spinal tenderness. No costovertebral tenderness. Full range of motion. Skin: Warm, dry with normal turgor. Normal color with no rashes, no lesions, and no evidence of cellulitis. MS/ Extremity: Pulses equal, no cyanosis. Neurovascular intact. Full, normal range of motion. 06:37 Eyes: Exam is negative for acute changes, Extraocular movements: no acute changes, Conjunctiva: no acute changes, no injection, Sclera: no acute changes, icterus, is not appreciated. 06:37 ENT: Exam is negative for acute changes, External ear(s): no acute changes, Ear canal(s): are normal, clear, TM's: no acute changes, Mouth: no acute changes, Lips: normal, moist, Oral mucosa: normal, pink and intact, moist, Posterior pharynx: no acute changes, Airway: no evidence of obstruction, Tonsils: are normal in appearance. 06:37 Cardiovascular: Exam negative for acute changes, Rate: normal, Rhythm: regular, Pulses: no pulse deficits are appreciated, Heart sounds: normal, normal S1and S2. 06:37 Respiratory: Exam negative for acute changes, respiratory distress, shortness of breath. 06:37 Abdomen/GI: Exam negative for acute changes, Inspection: obese Palpation: abdomen is soft and non-tender, in all quadrants. 06:37 Neuro: Exam negative for acute changes, Orientation: is normal, Mentation: is normal, Motor: is normal, moves all fours. Vital Signs: 06:24 BP 129 / 76; Pulse 85; Resp 20 S; Temp 98.8(O); Pulse Ox 100% on R/A; Weight 83.91 kg as6 (R); Height 5 ft. 3 in. (160.02 cm) (R); Pain 8/10; 08:20 BP 127 / 83; Pulse 72; Resp 16; Pulse Ox 100% ; bp 06:24 Body Mass Index 32.77 (83.91 kg, 160.02 cm) as6 MDM: 06:13 Patient medically screened. [facility] 06:45 Data reviewed: vital signs. Data interpreted: Pulse oximetry: on room air is 100 %. pm1 Interpretation: normal. 07:56 Counseling: I had a detailed discussion with the patient and/or guardian regarding: the pm1 historical points, exam findings, and any diagnostic results supporting the discharge/admit diagnosis, lab results, the need for outpatient follow up, to return to the emergency department if symptoms worsen or persist or if there are any questions or concerns that arise at home. 02/16 06:36 Order name: Strep; Complete Time: 07:53 pm1 02/16 06:38 Order name: Group A Streptococcus Rapid Sc; Complete Time: 07:53 EDMS 02/16 07:43 Order name: Throat Culture EDTN Administered Medications: No medications were administered Disposition Summary: 02/16/21 07:58 Discharge Ordered Location: Home pm1 Problem: new pm1 Symptoms: have improved pm1 Condition: Stable pm1 Diagnosis - Acute upper respiratory infection, unspecified pm1 Followup: pm1 - With: Emergency Department - When: As needed - Reason: Worsening of condition Followup: pm1 - With: Private Physician - When: 2 - 3 days - Reason: Recheck today's complaints, Continuance of care, Re-evaluation by your physician Discharge Instructions: - Discharge Summary Sheet pm1 - Antibiotic Resistance pm1 - Upper Respiratory Infection, Adult pm1 Forms: - Medication Reconciliation Form pm1 - Thank You Letter pm1 - Antibiotic Education pm1 - Prescription Opioid Use pm1 Addendum: 02/18/2021 11:12 Co-signature as Attending Physician, Zen Villanueva MD I agree with the assessment and c poloe plan of care. Signatures: Dispatcher [employer] Zen Lu MD MD cha Marinas, Patrick, JOURNEYMAN POWERHOUSE OPERATOR JOURNEYMAN POWERHOUSE OPERATOR pm1 Natanael Quezada, RN RN as6 Corrections: (The following items were deleted from the chart) 02/16 06:45 06:37 Associated signs and symptoms: Pertinent positives: Headache, vomit x 1 last pm1 night around 2300, body aches, shortness of breath, Pertinent negatives: chest pain, diarrhea, fever, rhinorrhea, sore throat, pm1 06:46 06:37 ENT: Positive for sore throat, Negative for ear pain, pm1 pm1
[2021-02-16 08:27] VITALS: TEMP 98.8; O2SAT 100
[2021-02-16 08:28] VITALS: BP 127/83
== END 2021-02-16 08:22 | disposition home or self-care (01) ==
LOC: ER 06:01
DX: J06.9 Acute upper respiratory infection, unspecified (principal); Z20.822 Contact with and (suspected) exposure to COVID-19
CPT/HCPCS: 87070; 87081; 0240U; 99283

== ENCOUNTER 2021-02-25 01:51 | Emergency (ER) | payer OTHER ==
--- OUTSIDE RECORDS SUMMARY | 2021-02-25 02:08 | XMS REPORT | Continuity of Care Document ---
:1995 Author Organization [facility] t Address [address] [place] [address] Care Team Providers Name Role Phone Asked, Pcp Primary Care Physician Unavailable TESHA Attending Clinician Unavailable Piyush RODRIGUEZ Attending Clinician Unavailable Agus TAYLOR Attending Clinician Piyush Rodriguez MD Attending Clinician Lab Attending Clinician Unavailable Jorge GAITAN, N Attending Clinician Rabia PATEL Attending Clinician Unavailable Misael Pennington MD Attending Clinician RAFI Attending Clinician Unavailable MISAEL PENNINGTON Attending Clinician Unavailable MISAEL PENNINGTON Attending Clinician Unavailable Brad GAITAN, Elvia Attending Clinician ELVIA SALINAS Attending Clinician Unavailable Joby Ramírez MD Attending Clinician JOBY RAMÍREZ Attending Clinician Unavailable Doctor Unassigned, Name Attending Clinician Unavailable Rudy MCGOWAN, A Attending Clinician Unavailable Gabriel TAYLOR, S Attending Clinician Piyush RIOS Attending Clinician Unavailable Only, Test Attending Clinician Unavailable Sandra Galvin MD Attending Clinician Yulia Cardenas Attending Clinician Singer [place] Attending Clinician Akinlissy BURRP, C Attending Clinician Herb SOLIS Attending Clinician Unavailable Demian Simon DO Attending Clinician Visit, Nurse Attending Clinician Unavailable Gianna GAITAN R Attending Clinician Bryn KATZ Attending Clinician Unavailable AGUS Attending Clinician Unavailable Kulwinder MCGOWAN, D Attending Clinician Unavailable NICK Attending Clinician Unavailable Nick GAITAN Attending Clinician Moody PIMENTEL Attending Clinician Unavailable Ciara B[place] I Attending Clinician TESHA Admitting Clinician Unavailable Gabriel TAYLOR S Admitting Clinician HIEN Admitting Clinician Unavailable AGUS Admitting Clinician Unavailable NICK Admitting Clinician Unavailable Moody PIMENTEL Admitting Clinician Unavailable Payers Payer Name Policy Type Policy Number Effective Date Expiration Date [facility] [id number] 2017 [facility] MEDICAID 00:00:00 Advance Directives Directive Decision Effective Termination Comments Source Date Date Healthcare Agents on N/A Univ ersity FileNameRelationshipHealthcare [facility] Agent Medical RelationshipCommunicationTrinity Health NeeceMotherHealth Care [phone] (Mobile) Problems Condition Condition Condition Status Onset Resolution Last Treating Co mments Source Name Details Category Date Date Treatment Clinician Date Frequent Frequent Disease Active Unive rs UTI UTI 8-03 ity of 00:: [address] Seizures Seizures Disease Active Unive rs 7-26 ity of 00:: [place] [facility] UTI UTI Disease Active Univers symptoms symptoms 4-01 ity of 00:00: [place] [facility] Other Other Disease Active Univers general general 4-01 [place] of [place] and advice and advice 00 [place] dical for [facility] contracept contracept billy billy management management Pain Pain Disease Active Univers pelvic pelvic 4-16 ity of 00:: [address] Routine Routine Disease Active Univers 2-25 it y of follow[place] [facility] Abnormal Abnormal Disease Active Unive rs EKG EKG 8-02 ity of 00:00: [address] History of History of Disease Active [...] Formattin ity of 00:00: g of this note Medical might be Branch different from the original. Epilepsy x's 2 years. Had genetic counselin g 01/18/16 per Akosua Camp, DEE.-see external records-p age 20-23 Allergies, Adverse Reactions, Alerts Allergy Allergy Status Severity Reaction(s) Onset Inactive Treating Comm ents Source Name Type Date Date Clinician Nitrofur Propensi Active Palpitations Univers antoin ty to 8-03 ity of [...] Medical Branch LACOSAMI Allergy Active High Hives [address] [facility] NITROFUR Allergy Active Med Anxiety 2020-[address] [facility] ANTOIN 7[facility]16 [facility] MON[facility]YD[facility] Medical [facility] 00 Center Doxycycl Propensi Active Other - See seizures Univers ine ty to comments 2-12 ity of adverse 00:00: [place] reaction 00 Medical s Branch Tramadol Propensi Active Other - See 2019- seizures Univers ty to comments 2-12 ity of adverse 00:00: [place] reaction 00 Medical s Branch DOXYCYCL DRUG Active Other-Cmnt 2020-0 Univ ers INE INGREDI 2-12 ity of 00:00: 00 Medical Branch TRAMADOL DRUG Active Other-Cmnt 2019-0 Univ ers INGREDI 2-12 ity of 00:00: 00 Medical Branch DOXYCYCL Allergy Active High Hives 2019-[address] [facility] INE 2-12 [facility] TRAMADOL Allergy Active Other 2019-[address] [facility] Social History Social Habit Start Date Stop Date Quantity Comments Source Exposure to Not sure [facility] SARS-CoV-2 (event) Medica l Branch Alcohol intake 2020-11-26 2020-11-26 0 /d [facility] 00:00:00 00:00:00 [facility] Tobacco use and 2015-12-21 2015-12-21 Never used [facility] exposure 00:00:00 00:00:00 [facility] Sex Assigned At [birth year] [facility] 00:00:00 00:00:00 [facility] Smoking Status Start Date Stop Date Source Never smoker [facility] Medications Ordered Filled Start Stop Current Ordering Indication Dosage Frequency Signature Comments Components Source Medication Medication Date Date Medication? Clinician (SIG) Name Name lamoTRIgine 2020-03 Yes [id number] Take 4 by Univers 25 mg 0-22 mouth BID. ity of disintegrat 00:00: [place] ing tablet 00 Medical Branch lamoTRIgine 2020-03 Yes [id number] Take 4 by Univers 25 mg 0-22 mouth BID. ity of disintegrat 00:00: [place] ing tablet 00 Medical Branch lamoTRIgine 1 Yes [id number] Take 4 by Univers 25 mg 0-22 mouth BID. ity of disintegrat 00:00: [place] ing tablet 00 Medical Branch lamoTRIgine 0 Yes [id number] Take 3 by Univers 25 mg 9-20 mouth BID ity of disintegrat 00:00: [place] 14 [place] tablet 00 days. When Med ical prescripti Branch on completes. lamoTRIgine 2020- No [id number] Take 3 by Univers 25 mg 9-20 10-22 mouth BID ity of disintegrat 00:00: 00:00 for 14 [place] ing tablet 00 :00 days. When Med ical prescripti Branch on completes. trospium 20 2020-0 Yes [id number] 20mg Take 1 Univers mg tablet 8-26 tablet by ity o f 00:00: mouth 2 [place] (two) Medical times Branch daily. trospium 20 2020-0 Yes [id number] 20mg Take 1 Univers mg tablet 8-26 tablet by ity o f 00:00: mouth 2 [place] (two) Medical times Branch daily. trospium 20 2020-0 Yes [id number] 20mg Take 1 Univers mg tablet 8-26 tablet by ity o f 00:00: mouth 2 [place] (two) Medical times Branch daily. trospium 20 2020-0 Yes [id number] 20mg Take 1 Univers mg tablet 8-26 tablet by ity o f 00:00: mouth [place] (two) Medical times Branch daily. trospium 20 2020-0 Yes [id number] 20mg Take 1 Univers mg tablet 8-26 tablet by ity o f 00:00: mouth [place] (two) Medical times Branch daily. trospium 20 2020-0 Yes [id number] 20mg Take 1 Univers mg tablet 8-26 tablet by ity o f 00:00: mouth [place] (two) Medical times Branch daily. trospium 20 2020-0 Yes [id number] 20mg Take 1 Univers mg tablet 8-26 tablet by ity o f 00:00: mouth [place] (two) Medical times Branch daily. trospium 20 2020-0 Yes [id number] 20mg Take 1 Univers mg tablet 8-26 tablet by ity o f 00:00: mouth [place] (two) Medical times Branch daily. lamoTRIgine 2020-0 2020- No [id number] 25mg Take 1 Univers 25 mg 8-13 08-21 tablet by ity of tablet 00:00: 04:59 mouth [place] 00 :00 every Medical evening Branch for 7 days. lamoTRIgine 2020-0 2020- No [id number] 25mg Take 1 Univers 25 mg 8-13 08-21 tablet by ity of tablet 00:00: 04:59 mouth [place] 00 :00 every Medical evening Branch for 7 days. lamoTRIgine 2022020- No [id number] 25mg Take 1 Univers 25 mg 8-13 08-21 tablet by ity of tablet 00:00: 04:59 mouth [place] 00 :00 every Medical evening Branch for 7 days. lamoTRIgine 2020- No [id number] 25mg Take 1 Univers 25 mg 8-13 08-21 tablet by ity of tablet 00:00: 04:59 mouth [place] 00 :00 every Medical evening Branch for 7 days. lamoTRIgine 2020- No [id number] 25mg Take 1 Univers 25 mg 8-13 08-21 tablet by ity of tablet 00:00: 04:59 mouth [place] 00 :00 every Medical evening Branch for 7 days. lamoTRIgine 2020- No [id number] 25mg Take 1 Univers 25 mg 8-13 08-21 tablet by ity of tablet 00:00: 04:59 mouth [place] 00 :00 every Medical evening Branch for 7 days. lamoTRIgine 2020- No [id number] 25mg Take 1 Univers 25 mg 8-13 08-21 tablet by ity of tablet 00:00: 04:59 mouth [place] 00 :00 every Medical evening Branch for 7 days. lamoTRIgine 2020- No [id number] 25mg Take 1 Univers 25 mg 8-13 08-21 tablet by ity of tablet 00:00: 04:59 mouth [place] 00 :00 every Medical evening Branch for 7 days. lamoTRIgine 2020- No [id number] 25mg Take 1 Univers 25 mg 8-13 08-21 tablet by ity of tablet 00:00: 04:59 mouth [place] 00 :00 every Medical evening Branch for 7 days. lamoTRIgine 2020- No [id number] 25mg Take 1 Univers 25 mg 8-13 08-21 tablet by ity of tablet 00:00: 04:59 mouth [place] 00 :00 every Medical evening Branch for 7 days. lamoTRIgine 2020- No [id number] 25mg Take 1 Univers 25 mg 8-13 08-21 tablet by ity of tablet 00:00: 04:59 mouth [place] 00 :00 every Medical evening Branch for 7 days. gadoteridol 2020- No [id number] .2mL/kg 0.2 mL/kg, Univers (PROHANCE-2 10-18 Intravenou i ty of 0 mL) 18:45: 18:46 s, ONCE, 1 [place] injection 00 :00 dose, Nicolette Medic al 0.2 mL/kg 10/18/20 at [facility] 1345, Routine metroNIDAZO Yes [id number] 500mg Take 1 Univers LE (FLAGYL) 10-15 tablet by ity of 500 mg 00:00: mouth 2 [place] tablet 00 (two) Medical times Branch daily. metroNIDAZO Yes [id number] 500mg Take 1 Univers LE (FLAGYL) 10-15 tablet by ity of 500 mg 00:00: mouth 2 [place] tablet 00 (two) Medical times Branch daily. metroNIDAZO 2020- No [id number] 500mg Take 1 Univers LE (FLAGYL) 10-15 tablet by it y of 500 mg 00:00: 00:00 mouth 2 [place] tablet 00 :00 (two) Medical times Branch daily. metroNIDAZO 2020- No [id number] 500mg Take 1 Univers LE (FLAGYL) 10-15 tablet by it y of 500 mg 00:00: 00:00 mouth 2 [place] tablet 00 :00 (two) Medical times Branch daily. metroNIDAZO 2020- No [id number] 500mg Take 1 Univers LE (FLAGYL) 10-15 tablet by it y of 500 mg 00:00: 00:00 mouth 2 [place] tablet 00 :00 (two) Medical times Branch daily. metroNIDAZO 2020- No [id number] 500mg Take 1 Univers LE (FLAGYL) 10-15 tablet by it y of 500 mg 00:00: 04:59 mouth 2 [place] tablet 00 :00 (two) Medical times Branch daily for 7 days. metroNIDAZO 2020- No [id number] 500mg Take 1 Univers LE (FLAGYL) 10-15 tablet by it y of 500 mg 00:00: 00:00 mouth 2 [place] tablet 00 :00 (two) Medical times Branch daily for 7 days. azithromyci 2020- No [id number] 1000mg Take 2 Univers n 8-05 08-06 tablets by ity of (ZITHROMAX) 00:00: 04:59 mouth once [place] 500 mg 00 :00 now for 1 Medical tablet dose. Branch LITHIUM 2020-0 Yes Take by Univer s CARBONATE 8-03 mouth. ity of ORAL 21:04: [place] [address] Medical [place] busPIRone 2020-0 Yes 10mg Take 10 mg Un aubree 10 mg 8-03 by mouth 2 ity of tablet 21:04: (two) [place] 25 times Medical daily. Branch LITHIUM 2020-0 Yes Take by Univer s CARBONATE 8-03 mouth. ity of ORAL 21:04: [place] [address] Medical [place] busPIRone 2020-0 Yes 10mg Take 10 mg Un aubree 10 mg 8-03 by mouth 2 ity of tablet 21:04: (two) [place] 25 times Medical daily. Branch LITHIUM 2020-0 Yes Take by Univer s CARBONATE 8-03 mouth. ity of ORAL 21:04: [address] busPIRone 2020-0 Yes 10mg Take 10 mg Un aubree 10 mg 8-03 by mouth 2 ity of tablet 21:04: (two) [place] 25 times Medical daily. Branch LITHIUM 2020-0 Yes Take by Univer s CARBONATE 8-03 mouth. ity of ORAL 21:04: [place] [facility] [place] busPIRone 2020-0 Yes 10mg Take 10 mg Un aubree 10 mg 8-03 by mouth 2 ity of tablet 21:04: (two) [place] 25 times Medical daily. Branch LITHIUM 2020-0 Yes Take by Univer s CARBONATE 8-03 mouth. ity of ORAL 21:04: [place] [address] Medical [place] busPIRone 2020-0 Yes 10mg Take 10 mg Un aubree 10 mg 8-03 by mouth 2 ity of tablet 21:04: (two) [place] 25 times Medical daily. Branch LITHIUM 2020-0 Yes Take by Univer s CARBONATE 8-03 mouth. ity of ORAL 21:04: [address] busPIRone 2020-0 Yes 10mg Take 10 mg Un aubree 10 mg 8-03 by mouth 2 ity of tablet 21:04: (two) [place] 25 times Medical daily. Branch LITHIUM 2020-0 Yes Take by Univer s CARBONATE 8-03 mouth. ity of ORAL 21:04: [place] 25 Medical Branch busPIRone 2020-0 Yes 10mg [...] CARBONATE 8-03 mouth. ity of ORAL 21:04: [place] [address] Medical Branch busPIRone 2020-0 Yes 10mg Take [...] CARBONATE 8-03 mouth. ity of ORAL 16:04: [place] [address] [facility] busPIRone Yes 10mg Take 10 mg Un aubree 10 mg 8-03 by mouth 2 ity of tablet 16:04: (two) [place] 25 times Medical daily. Branch LITHIUM Yes Take by Univer s CARBONATE 8-03 mouth. ity of ORAL 16:04: [facility] busPIRone Yes 10mg Take 10 mg Un a[place] 10 mg 8-03 by mouth 2 ity of tablet 16:04: (two) [place] 25 times Medical daily. Branch LITHIUM Yes Take by Univer s CARBONATE 8-03 mouth. ity of ORAL 16:04: [address] busPIRone Yes 10mg Take 10 mg Un a[place]ree 10 mg 8-03 by mouth 2 ity of tablet 16:04: (two) [place] 25 times Medical daily. Branch LITHIUM Yes Take by Univer s CARBONATE 7-30 mouth. ity of ORAL 15:22: [address] busPIRone Yes 10mg Take 10 mg Un aubree 10 mg 7-30 by mouth 2 ity of tablet 15:22: (two) [place] 11 times Medical daily. Branch LITHIUM Yes Take by Univer s CARBONATE 7-30 mouth. ity of ORAL 15:22: [address] busPIRone Yes 10mg Take 10 mg Un [place] 10 mg 7-30 by mouth 2 ity of tablet 15:22: (two) [place] 11 times Medical daily. Branch LITHIUM Yes Take by Univer s CARBONATE 7-30 mouth. ity of ORAL 15:22: [address] busPIRone Yes 10mg Take 10 mg Un [place] 10 mg 7-30 by mouth 2 ity of tablet 15:22: (two) [place] 11 times Medical daily. Branch lamoTRIgine 2020- No [id number] Take 1 Univers 25 mg 7-30 09-27 [...] times daily for 30 days. lamoTRIgine No [id number] Take 1 Univers 25 mg 7-30 09-27 [...] times daily for 30 days. lamoTRIgine No [id number] Take 1 Univers 25 mg 7-30 09-27 [...] daily for 30 days. lamoTRIgine 2020- No [id number] Take 1 Univers 25 mg 7-30 09-27 [...] daily for 30 days. lamoTRIgine 2020- No [id number] Take 1 Univers 25 mg 7-30 09-27 [...] daily for 30 days. lamoTRIgine 2020- No [id number] Take 1 Univers 25 mg 7-30 09-27 [...] times daily for 30 days. lamoTRIgine No [id number] Take 1 Univers 25 mg 7-30 09-27 [...] times daily for 30 days. lamoTRIgine No [id number] Take 1 Univers 25 mg 7-30 09-27 [...] daily for 30 days. lamoTRIgine 2020- No [id number] Take 1 Univers 25 mg 7-30 09-27 [...] daily for 30 days. lamoTRIgine 2020- No [id number] Take 1 Univers 25 mg 7-30 09-27 [...] daily for 30 days. lamoTRIgine 2020- No [id number] Take 1 Univers 25 mg 7-30 09-27 [...] times daily for 30 days. lamoTRIgine No [id number] Take 1 Univers 25 mg 10-05 tablet by ity of tablet 00:00: :59 mouth [place] 00 :00 daily for Medical 7 days, Branch THEN 1 tablet 2 (two) times daily for 7 days, THEN 2 tablets every morning for 7 days, THEN 2 tablets 2 (two) times daily for 7 days, THEN 4 tablets 2 (two) times daily for 30 days. lamoTRIgine 2020- No [id number] Take 1 Univers 25 mg 10-05 tablet by ity of tablet 00:00: :59 mouth [place] 00 :00 daily for Medical 7 days, Branch THEN 1 tablet 2 (two) times daily for 7 days, THEN 2 tablets every morning for 7 days, THEN 2 tablets 2 (two) times daily for 7 days, THEN 4 tablets 2 (two) times daily for 30 days. lamoTRIgine 2020- No [id number] Take 1 Univers 25 mg 10-05 tablet by ity of tablet 00:: 59 mouth [place] 00 :00 daily for Medical 7 days, Branch THEN 1 tablet 2 (two) times daily for 7 days, THEN 2 tablets every morning for 7 days, THEN 2 tablets 2 (two) times daily for 7 days, THEN 4 tablets 2 (two) times daily for 30 days. lamoTRIgine 2020- No [id number] Take 1 Univers 25 mg 10-05 tablet [...] Q8HPRN, [place] mg 44 Starting Medical Nicolette Luis 10/04/20 at 1633, Until Discontinu ed, Routine, Anxiety LORazepam Yes 2mg 2 mg, Univers (ATIVAN) 10-03 Intramuscu ity o f injection 2 20:47: lar, PRN - [place] mg 05 SEE Medical INSTRUCTIO Branch NS, 2 doses, Starting Thu10/03/20 at 1547, Until Discontinu ed, STAT, For seizure lasting two minutes or longer. hydrOXYzine 2020- No 10mg 10 mg, Uni vers (ATARAX) 10-03 07-29 Oral, Q8H, ity of tablet 10 20:00: 21:22 First dose [place] mg 00 :10 on Thu [facility] 10/03/20 at Branch 1500, Until Discontinu ed, Routine lithium Yes 600mg 600 mg, Univer s carbonate 10-02 Oral, QAM, ity of CR tablet 14:00: [place] 600 mg 00 on Thu [facility] 10/02/20 at Branch 0900, Until Discontinu ed busPIRone Yes 10mg 10 mg, Univer s (BUSPAR) 10-02 Oral, BID, ity o f tablet 10 01:00: [place] mg 00 on [facility] 10/01/20 at Branch 1999, Until Discontinu ed, Routine famotidine Yes 20mg 20 mg, Unive rs (PEPCID AC) 10-02 Oral, BID, it y of tablet 20 01:00: First dose [place] mg 00 on [facility] 10/01/20 at Branch 1999, Until Discontinu ed, Routine heparin Yes 5000U 5,000 Univers (porcine) 10-02 Units, ity of injection 01:00: Subcutaneo [place] 5,000 Units 00 us, Q12H, Med ical First dose Branch on Thu10/01/20 at 1999, Until Discontinu ed, Routine lithium 0 Yes 900mg 900 mg, Univer s carbonate 10-01 Oral, QPM, ity of (LITHONATE) 22:00: First dose [place] capsule 900 [address] [facility] Medica l mg 10/01/20 at Branch 1700, Until Discontinu ed, Routine LITHIUM 0 Yes Take by Univer s CARBONATE 10-01 mouth. ity of ORAL 17:24: [address] busPIRone 2020-0 Yes 10mg Take 10 mg Un aub[place] 10 mg 10-01 by mouth 2 ity of tablet 17:24: (two) [place] [address] times Medical daily. Branch LITHIUM Yes Take by Univer s CARBONATE 10-01 mouth. ity of ORAL 17:24: [address] busPIRone Yes 10mg Take 10 mg Un aubree 10 mg 10-01 by mouth 2 ity of tablet 17:24: (two) [place] [address] times Medical daily. Branch topiramate 2020- No 100mg Take 100 U nivers (TOPAMAX) 10-01 07-26 mg by ity of 100 mg 17:24: 00:00 mouth. [place] tablet 16 : [facility] topiramate 2020- No 100mg Take 100 U nivers (TOPAMAX) 10-01 07-26 mg by ity of 100 mg 17:24: 00:00 mouth. [place] tablet 16 : [facility] topiramate 2020- No 100mg Take 100 U nivers (TOPAMAX) 10-01 07-26 mg by ity of 100 mg 17:24: 00:00 mouth. [place] tablet 16 : [facility] ondansetron Yes 4mg 4 mg, Slow Univers (ZOFRAN 10-01 IV Push, ity of (PF)) 17:23: Q6HPRN, [place] injection 4 23 Starting Medi tressa mg [facility] 10/01/20 at 1223, Until Discontinu ed, Routine, Nausea and Vomiting (N/V) acetaminoph Yes 650mg 650 mg, Un aubree en 10-01 Oral, ity of (TYLENOL) 17:23: Q6HPRN, [place] tablet 650 17 Starting Medic al mg [facility] 10/01/20 at 1223, Until Discontinu ed, Routine, Pain (scale 1-3) clonazePAM 2020- No .5mg 0.5 mg, Uni vers (KLONOPIN) 09-13 Oral, ity of tablet 0.5 04:45: 03:48 ONCE, 1 [place] as mg 00 :00 dose, [facility] 09/12/20 at [place] 2345, Routine famotidine 2020- No 20mg 20 mg, IV U nivers 20 mg in NS 09-13 Piggyback, i ty of 50 ml 02:45: 04:38 ONCE, 1 [place] (PEPCID) 20 00 :00 dose, Thu Med ical mg/50 mL 09/12/20 at Branch Piggyback 2145, 50 20 mg mL diphenhydrA No 25mg 25 mg, Uni vers MINE 09-13 Slow IV ity of (BENADRYL) 02:45: 02:26 Push, [place] injection 00 :00 ONCE, 1 Medical 25 mg dose, Thu Branch 09/12/20 at 2145, STAT methylPREDN 2020- No 125mg 125 mg, U nivers ISolone sod 09-13 Intravenou i ty of succ 02:30: 02:22 s, ONCE [place] (SOLU-MEDRO 00 :00 NOW, 1 Medica l L (PF)) dose, Thu [place] injection 09/12/20 at 125 mg 2130, Routine carBAMazepi No 600mg 600 mg, U nivers ne 09-12 Oral, ity of (TEGRETOL) 02:45: 01:56 ONCE, 1 [place] as tablet 600 00 :00 dose, Tue Medi tressa mg 09/11/20 at Branch 2145, SHAYNA hydrOXYzine Yes [id number] 50mg Take 1 Univers (VISTARIL) 7-07 capsule by ity of 50 mg 00:00: mouth 3 [place] capsule 00 (three) Medical times Branch daily as needed for Itching. hydrOXYzine 2020-0 Yes [id number] 50mg Take 1 Univers (VISTARIL) 7-07 capsule by ity of 50 mg 00:00: mouth 3 [place] capsule 00 (three) Medical times Branch daily as needed for Itching. hydrOXYzine 2020-0 Yes [id number] 50mg Take 1 Univers (VISTARIL) 7-07 capsule by ity of 50 mg 00:00: mouth 3 [place] capsule 00 (three) Medical times Branch daily as needed for Itching. hydrOXYzine 2020-0 Yes [id number] 50mg Take 1 Univers (VISTARIL) 7-07 capsule by ity of 50 mg 00:00: mouth 3 [place] capsule 00 (three) Medical times Branch daily as needed for Itching. hydrOXYzine 2021-0 Yes [id number] 50mg Take 1 Univers (VISTARIL) 7-07 capsule by ity of 50 mg 00:00: mouth 3 [place] capsule 00 (three) Medical times Branch daily as needed for Itching. hydrOXYzine 2020-0 Yes [id number] 50mg Take 1 Univers (VISTARIL) 7-07 capsule by ity of 50 mg 00:00: mouth 3 [place] capsule 00 (three) Medical times Branch daily as needed for Itching. hydrOXYzine 2020-0 Yes [id number] 50mg Take 1 Univers (VISTARIL) 7-07 capsule by ity of 50 mg 00:00: mouth 3 [place] capsule 00 (three) Medical times Branch daily as needed for Itching. hydrOXYzine 2020-0 Yes [id number] 50mg Take 1 Univers (VISTARIL) 7-07 capsule by ity of 50 mg 00:00: mouth 3 [place] capsule 00 (three) Medical times Branch daily as needed for Itching. hydrOXYzine 2020-0 Yes [id number] 50mg Take 1 Univers (VISTARIL) 7-07 capsule by ity of 50 mg 00:00: mouth 3 [place] capsule 00 (three) Medical times Branch daily as needed for Itching. hydrOXYzine 2020-0 Yes [id number] 50mg Take 1 Univers (VISTARIL) 7-07 capsule by ity of 50 mg 00:00: mouth 3 [place] capsule 00 (three) Medical times Branch daily as needed for Itching. hydrOXYzine 2020-0 Yes [id number] 50mg Take 1 Univers (VISTARIL) 7-07 capsule by ity of 50 mg 00:00: mouth 3 [place] capsule 00 (three) Medical times Branch daily as needed for Itching. hydrOXYzine 2020-0 Yes [id number] 50mg Take 1 Univers (VISTARIL) 7-07 capsule by ity of 50 mg 00:00: mouth 3 [place] capsule 00 (three) Medical times Branch daily as needed for Itching. hydrOXYzine 2020-0 Yes [id number] 50mg Take 1 Univers (VISTARIL) 7-07 capsule by ity of 50 mg 00:00: mouth 3 [place] capsule 00 (three) Medical times Branch daily as needed for Itching. hydrOXYzine 2020-0 Yes [id number] 50mg Take 1 Univers (VISTARIL) - capsule by ity of 50 mg 00:00: mouth 3 [place] capsule 00 (three) Medical times Branch daily as needed for Itching. hydrOXYzine 0 Yes [id number] 50mg Take 1 Univers (VISTARIL) 7- capsule by ity of 50 mg 00:00: mouth 3 [place] capsule 00 (three) Medical times Branch daily as needed for Itching. hydrOXYzine Yes [id number] 50mg Take 1 Univers (VISTARIL) - capsule by ity of 50 mg 00:00: mouth 3 [place] capsule 00 (three) Medical times Branch daily as needed for Itching. hydrOXYzine 2020- No [id number] 50mg Take 1 Univers (VISTARIL) 09-12- capsule by it y of 50 mg 00:00: 00:00 mouth 3 [place] capsule 00 :00 (three) Medical times Branch daily as needed for Itching. hydrOXYzine 2020- No [id number] 50mg Take 1 Univers (VISTARIL) 09-12- capsule by it y of 50 mg 00:00: 00:00 mouth 3 [place] capsule 00 :00 (three) Medical times Branch daily as needed for Itching. hydrOXYzine 2020- No [id number] 50mg Take 1 Univers (VISTARIL) 09-12- capsule by it y of 50 mg 00:00: 00:00 mouth 3 [place] capsule 00 :00 (three) Medical times Branch daily as needed for Itching. gabapentin 2020- No [id number] 300mg Take 1 Univers 300 mg 09-12 4105 capsule by ity of capsule 00:00: 04:59 mouth 3 [place] 00 :00 (three) Medical times Branch daily for 15 days. gabapentin 2020-2020- No [id number] 300mg Take 1 Univers 300 mg 09-12 4105 capsule by ity of capsule 00:00: 04:59 mouth 3 [place] 00 :00 (three) Medical times Branch daily for 15 days. gabapentin 2020-2020- No [id number] 300mg Take 1 Univers 300 mg 09-12 4105 capsule by ity of capsule 00:00: 04:59 mouth 3 [place] 00 :00 (three) Medical times Branch daily for 15 days. gabapentin 2020-0 2020- No [id number] 300mg Take 1 Univers 300 mg 09-12 4105 capsule by ity of capsule 00:00: 04:59 mouth 3 [place] 00 :00 (three) Medical times Branch daily for 15 days. gabapentin 2020-0 2020- No [id number] 300mg Take 1 [facility] 300 mg 09-12 4105 capsule by ity of capsule 00:00: 04:59 mouth 3 [place] 00 :00 (three) Medical times Branch daily for 15 days. carBAMazepi 2020-0 Yes [id number] 200mg Take 1 [facility] ne 7-06 tablet by ity of (TEGRETOL 00:00: mouth 2 [place] XR) 200 mg 00 (two) Medical 12 hr times Branch tablet daily. carBAMazepi 2020-0 Yes [id number] 200mg Take 1 [facility] ne 7-06 tablet by ity of (TEGRETOL 00:00: mouth 2 [place] XR) 200 mg 00 (two) Medical 12 hr times Branch tablet daily. carBAMazepi 2020-0 Yes [id number] 200mg Take 1 [facility] ne 7-06 tablet by ity of (TEGRETOL 00:00: mouth 2 [place] XR) 200 mg 00 (two) Medical 12 hr times Branch tablet daily. carBAMazepi 2020-0 Yes [id number] 200mg Take 1 [facility] ne 7-06 tablet by ity of (TEGRETOL 00:00: mouth 2 [place] XR) 200 mg 00 (two) Medical 12 hr times Branch tablet daily. carBAMazepi 2020-0 Yes [id number] 200mg Take 1 [facility] ne 7-06 tablet by ity of (TEGRETOL 00:00: mouth 2 [place] XR) 200 mg 00 (two) Medical 12 hr times Branch tablet daily. carBAMazepi 2020-0 Yes [id number] 200mg Take 1 [facility] ne 7-06 tablet by ity of (TEGRETOL 00:00: mouth 2 [place] XR) 200 mg 00 (two) Medical 12 hr times Branch tablet daily. carBAMazepi 2020-0 Yes [id number] 200mg Take 1 [facility] ne 7-06 tablet by ity of (TEGRETOL 00:00: mouth 2 [place] XR) 200 mg 00 (two) Medical 12 hr times Branch tablet daily. carBAMazepi 2020-0 2020- No [id number] 200mg Take 1 [facility] ne 09-11 tablet by [facility] of (TEGRETOL 00:00: 00:00 [place] 200 mg 00 :00 (two) Medical 12 hr times Branch tablet daily. carBAMazepi 2020-0 2020- No [id number] 200mg Take 1 [facility] ne 09-11 tablet by it[facility] of (TEGRETOL 00:00: 00:00 mouth [place] 200 mg 00 :00 (two) Medical 12 hr times Branch tablet daily. carBAMazepi 2020-0 2020- No [id number] 200mg Take 1 [facility] ne 09-11 tablet by [facility] of (TEGRETOL 00:00: 00:00 mouth [place] 200 mg 00 :00 (two) Medical 12 hr times Branch tablet daily. lacosamide 2020- No 100mg 100 mg, [facility] [place] (VIMPAT) 6-25 06-25 Oral, ity of tablet 100 18:45: 18:43 ONCE, 1 [place] mg 00 :00 dose, Fri Medical 08/31/20 at Branch 1345, Routine
ensemble member approving Restricted medication : [place] PAZ busPIRone 2020-0 Yes 10mg Take 10 mg [facility] [place] 10 mg 6-25 by mouth 2 ity of tablet 18:41: (two) [place] 13 times Medical daily. Branch busPIRone 2020-0 [...] [place] 13 times Medical daily. Branch busPIRone Yes 10mg Take 10 mg [facility] [place] 10 mg 6-25 by mouth 2 ity of tablet 18:41: (two) [place] 13 times Medical daily. Branch busPIRone 0 Yes 10mg Take 10 mg [facility] [place] 10 mg 6-25 by mouth 2 ity of tablet 18:41: (two) [place] 13 times Medical daily. Branch busPIRone 0 Yes 10mg Take 10 mg [facility] [place] 10 mg 6-25 by mouth 2 ity of tablet 18:41: (two) [place] 13 times Medical daily. [place] LITHIUM Yes Take by Univer s CARBONATE 6-25 mouth. ity of ORAL 18:41: [address] LITHIUM Yes Take by Univer s CARBONATE 6-25 mouth. ity of ORAL 18:41: [address] LITHIUM Yes Take by Univer s CARBONATE 6-25 mouth. ity of ORAL 18:41: [address] LITHIUM Yes Take by Univer s CARBONATE 6-25 mouth. ity of ORAL 18:41: [address] LITHIUM Yes Take by Univer s CARBONATE 6-25 mouth. ity of ORAL 18:41: [address] LITHIUM Yes Take by Univer s CARBONATE 6-25 mouth. ity of ORAL 18:41: [address] LITHIUM Yes Take by Univer s CARBONATE 6-25 mouth. ity of ORAL 18:41: [address] LITHIUM Yes Take by Univer s CARBONATE 6-25 mouth. ity of ORAL 18:41: [address] Lacosamide Yes [id number] 100mg Take 1 [facility] (VIMPAT) 6-25 tablet by ity of 100 mg 00:00: mouth [place] tablet 00 every 12 Medical (twelve) Branch hours. Lacosamide 2020-2020- No [id number] 100mg Take 1 [facility] (VIMPAT) 6-25 07-06 tablet by ity o f 100 mg 00:00: 00:00 mouth [place] tablet 00 :00 every 12 Medical (twelve) Branch hours. acetaminoph 2020- No 1000mg 1,000 mg, [facility] en 6-24 06-24 Oral, ity of (TYLENOL) 03:15: 02:16 ONCE, 1 [place] tablet 00 :00 dose, Wed Medical 1,000 mg 08/29/20 at [facility] h 2215, SHAYNA ibuprofen 1-0 Yes [id number] 600mg Take 1 [facility] 600 mg 6-23 tablet by ity of tablet 00:00: mouth [place] 00 every 6 Medical (six) Branch hours as needed for Pain (scale 4-6). benzonatate 2020-0 Yes [id number] 200mg Take 1 [facility] 200 mg 6-23 capsule by ity of capsule 00:00: mouth 3 [place] 00 (three) Medical times Branch daily as needed for Cough for up to 20 doses. ondansetron 2020-0 Yes [id number] 4mg Take 1 [facility] (ZOFRAN 6-23 tablet by ity of ODT) 4 mg 00:00: mouth [place] disintegrat 00 every 8 Medic al ing tablet (eight) Branch hours as needed for Nausea and Vomiting (N/V). ibuprofen 2020-0 Yes [id number] 600mg Take 1 [facility] 600 mg 6-23 tablet by ity of tablet 00:00: mouth [place] 00 every 6 Medical (six) Branch hours as needed for Pain (scale 4-6). benzonatate 1-0 Yes [id number] 200mg Take 1 [facility] 200 mg 6-23 capsule by ity of capsule 00:00: mouth 3 [place] 00 (three) Medical times Branch daily as needed for Cough for up to 20 doses. ondansetron 1-0 Yes [id number] 4mg Take 1 [facility] (ZOFRAN 6-23 tablet by ity of ODT) 4 mg 00:00: mouth [place] disintegrat 00 every 8 Medic al ing tablet (eight) Branch hours as needed for Nausea and Vomiting (N/V). ibuprofen 1-0 Yes [id number] 600mg Take 1 [facility] 600 mg 6-23 tablet by ity of tablet 00:00: mouth [place] 00 every 6 Medical (six) Branch hours as needed for Pain (scale 4-6). benzonatate 2021-0 Yes [id number] 200mg Take 1 [facility] 200 mg 6-23 capsule by ity of capsule 00:00: mouth 3 [place] 00 (three) Medical times Branch daily as needed for Cough for up to 20 doses. ondansetron 2021-0 Yes [id number] 4mg Take 1 [facility] (ZOFRAN 6-23 tablet by ity of ODT) 4 mg 00:00: mouth [place] disintegrat 00 every 8 Medic al ing tablet (eight) Branch hours as needed for Nausea and Vomiting (N/V). ibuprofen 1-0 Yes [id number] 600mg Take 1 [facility] 600 mg 6-23 tablet by ity of tablet 00:00: mouth [place] 00 every 6 Medical (six) Branch hours as needed for Pain (scale 4-6). benzonatate 2021-0 Yes [id number] 200mg Take 1 [facility] 200 mg 6-23 capsule by ity of capsule 00:00: mouth 3 [place] 00 (three) Medical times Branch daily as needed for Cough for up to 20 doses. ondansetron 1-0 Yes [id number] 4mg Take 1 [facility] (ZOFRAN 6-23 tablet by ity of ODT) 4 mg 00:00: mouth [place] disintegrat 00 every 8 Medic al ing tablet (eight) Branch hours as needed for Nausea and Vomiting (N/V). ibuprofen 2020-0 Yes [id number] 600mg Take 1 [facility] 600 mg 6-23 tablet by ity of tablet 00:00: mouth [place] 00 every 6 Medical (six) Branch hours as needed for Pain (scale 4-6). benzonatate 1-0 Yes [id number] 200mg Take 1 [facility] 200 mg 6-23 capsule by ity of capsule 00:00: mouth 3 [place] 00 (three) Medical times Branch daily as needed for Cough for up to 20 doses. ondansetron 1-0 Yes [id number] 4mg Take 1 [facility] (ZOFRAN 6-23 tablet by ity of ODT) 4 mg 00:00: mouth [place] disintegrat 00 every 8 Medic al ing tablet (eight) Branch hours as needed for Nausea and Vomiting (N/V). ibuprofen 1-0 Yes [id number] 600mg Take 1 [facility] 600 mg 6-23 tablet by ity of tablet 00:00: mouth [place] 00 every 6 Medical (six) Branch hours as needed for Pain (scale 4-6). benzonatate 2021-0 Yes [id number] 200mg Take 1 [facility] 200 mg 6-23 capsule by ity of capsule 00:00: mouth 3 [place] 00 (three) Medical times Branch daily as needed for Cough for up to 20 doses. ondansetron 2021-0 Yes [id number] 4mg Take 1 [facility] (ZOFRAN 6-23 tablet by ity of ODT) 4 mg 00:00: mouth [place] disintegrat 00 every 8 Medic al ing tablet (eight) Branch hours as needed for Nausea and Vomiting (N/V). ibuprofen 1-0 Yes [id number] 600mg Take 1 [facility] 600 mg 6-23 tablet by ity of tablet 00:00: mouth [place] 00 every 6 Medical (six) Branch hours as needed for Pain (scale 4-6). benzonatate 2021-0 Yes [id number] 200mg Take 1 [facility] 200 mg 6-23 capsule by ity of capsule 00:00: mouth 3 [place] 00 (three) Medical times Branch daily as needed for Cough for up to 20 doses. ondansetron 1-0 Yes [id number] 4mg Take 1 [facility] (ZOFRAN 6-23 tablet by ity of ODT) 4 mg 00:00: mouth [place] disintegrat 00 every 8 Medic al ing tablet (eight) Branch hours as needed for Nausea and Vomiting (N/V). ibuprofen 2020-0 Yes [id number] 600mg Take 1 [facility] 600 mg 6-23 tablet by ity of tablet 00:00: mouth [place] 00 every 6 Medical (six) Branch hours as needed for Pain (scale 4-6). benzonatate 2021-0 Yes [id number] 200mg Take 1 [facility] 200 mg 6-23 capsule by ity of capsule 00:00: mouth 3 [place] (three) Medical times Branch daily as needed for Cough for up to 20 doses. ondansetron 2021-0 Yes [id number] 4mg Take 1 [facility] (ZOFRAN 6-23 tablet by ity of ODT) 4 mg 00:00: mouth [place] disintegrat 00 every 8 Medic al ing tablet (eight) Branch hours as needed for Nausea and Vomiting (N/V). ibuprofen 2021-0 Yes [id number] 600mg Take 1 [facility] 600 mg 6-23 tablet by ity of tablet 00:00: mouth [place] 00 every 6 Medical (six) Branch hours as needed for Pain (scale 4-6). benzonatate 2021-0 Yes [id number] 200mg Take 1 [facility] 200 mg 6-23 capsule by ity of capsule 00:00: mouth 3 [place] 00 (three) Medical times Branch daily as needed for Cough for up to 20 doses. ondansetron 2020-0 Yes [id number] 4mg Take 1 [facility] (ZOFRAN 6-23 tablet by ity of ODT) 4 mg 00:00: mouth [place] disintegrat 00 every 8 Medic al ing tablet (eight) Branch hours as needed for Nausea and Vomiting (N/V). ibuprofen 2020-0 Yes [id number] 600mg Take 1 [facility] 600 mg 6-23 tablet by ity of tablet 00:00: mouth [place] 00 every 6 Medical (six) Branch hours as needed for Pain (scale 4-6). benzonatate 1-0 Yes [id number] 200mg Take 1 [facility] 200 mg 6-23 capsule by ity of capsule 00:00: mouth 3 [place] 00 (three) Medical times Branch daily as needed for Cough for up to 20 doses. ondansetron 2020-0 Yes [id number] 4mg Take 1 [facility] (ZOFRAN 6-23 tablet by ity of ODT) 4 mg 00:00: mouth [place] disintegrat 00 every 8 Medic al ing tablet (eight) Branch hours as needed for Nausea and Vomiting (N/V). ibuprofen 2020-0 Yes [id number] 600mg Take 1 [facility] 600 mg 6-23 tablet by ity of tablet 00:00: mouth [place] 00 every 6 Medical (six) Branch hours as needed for Pain (scale 4-6). benzonatate 2020-0 Yes [id number] 200mg Take 1 [facility] 200 mg 6-23 capsule by ity of capsule 00:00: mouth 3 [place] 00 (three) Medical times Branch daily as needed for Cough for up to 20 doses. ondansetron 1-0 Yes [id number] 4mg Take 1 [facility] (ZOFRAN 6-23 tablet by ity of ODT) 4 mg 00:00: mouth [place] disintegrat 00 every 8 Medic al ing tablet (eight) Branch hours as needed for Nausea and Vomiting (N/V). benzonatate 1-0 Yes [id number] 200mg Take 1 [facility] 200 mg 6-23 capsule by ity of capsule 00:00: mouth 3 [place] 00 (three) Medical times Branch daily as needed for Cough for up to 20 doses. benzonatate 2021-0 Yes [id number] 200mg Take 1 [facility] 200 mg 6-23 capsule by ity of capsule 00:00: mouth (three) Medical times Branch daily as needed for Cough for up to 20 doses. benzonatate 2020-0 Yes [id number] 200mg Take 1 [facility] 200 mg 6-23 capsule by ity of capsule 00:00: mouth (three) Medical times Branch daily as needed for Cough for up to 20 doses. benzonatate 2020-0 Yes [id number] 200mg Take 1 [facility] 200 mg 6-23 capsule by ity of capsule 00:00: mouth (three) Medical times Branch daily as needed for Cough for up to 20 doses. benzonatate 2020-0 Yes [id number] 200mg Take 1 [facility] 200 mg 6-23 capsule by ity of capsule 00:00: mouth (three) Medical times Branch daily as needed for Cough for up to 20 doses. benzonatate 2020-0 Yes [id number] 200mg Take 1 [facility] 200 mg 6-23 capsule by ity of capsule 00:00: mouth (three) Medical times Branch daily as needed for Cough for up to 20 doses. benzonatate 2020-0 Yes [id number] 200mg Take 1 [facility] 200 mg 6-23 capsule by ity of capsule 00:00: mouth (three) Medical times Branch daily as needed for Cough for up to 20 doses. benzonatate 2020-0 Yes [id number] 200mg Take 1 [facility] 200 mg 6-23 capsule by ity of capsule 00:00: mouth (three) Medical times Branch daily as needed for Cough for up to 20 doses. benzonatate 2020-0 Yes [id number] 200mg Take 1 [facility] 200 mg 6-23 capsule by ity of capsule 00:00: mouth (three) Medical times Branch daily as needed for Cough for up to 20 doses. benzonatate 1-0 Yes [id number] 200mg Take 1 [facility] 200 mg 6-23 capsule by ity of capsule 00:00: mouth (three) Medical times Branch daily as needed for Cough for up to 20 doses. benzonatate 1-0 Yes [id number] 200mg Take 1 [facility] 200 mg 6-23 capsule by ity of capsule 00:00: mouth 3 [place] 00 (three) Medical times Branch daily as needed for Cough for up to 20 doses. benzonatate 2020- No [id number] 200mg Take 1 [facility] 200 mg 6-29 10- capsule by ity of capsule 00:00: 00:00 mouth 3 [place] 00 :00 (three) Medical times Branch daily as needed for Cough for up to 20 doses. benzonatate 2020- No [id number] 200mg Take 1 [facility] 200 mg -29 10- capsule by ity of capsule 00:00: 00:00 mouth 3 [place] 00 :00 (three) Medical times Branch daily as needed for Cough for up to 20 doses. benzonatate 2020- No [id number] 200mg Take 1 [facility] 200 mg -29 10- capsule by ity of capsule 00:00: 00:00 mouth 3 [place] 00 :00 (three) Medical times Branch daily as needed for Cough for up to 20 doses. ibuprofen 2020- No [id number] 600mg Take 1 [facility] 600 mg 08-29 07-30 tablet by ity of tablet 00:00: 00:00 mouth [place] 00 :00 every 6 Medical (six) Branch hours as needed for Pain (scale 4-6). ondansetron 2020- No [id number] 4mg Take 1 [facility] (ZOFRAN 08-29 07-30 tablet by ity of ODT) 4 mg 00:00: 00:00 mouth [place] disintegrat 00 :00 every 8 Medic al ing tablet (eight) Branch hours as needed for Nausea and Vomiting (N/V). tamsulosin Yes .4mg 0.4 mg, Univ ers (FLOMAX) 3-08 Oral, ity of capsule 0.4 15:00: DAILY, [place] mg 00 First dose Medical on Thu Branch 05/14/20 at 0900, Until Discontinu ed, Routine cefTRIAXone 2020- No 1000mg 1,000 mg, Univers (ROCEPHIN) 05-14 03-08 IV ity of 1,000 mg in 03:45: 03:13 Piggyback, [place] NaCl 0.9% 00 :00 ONCE, 1 Medical (NS) 50 mL dose, [place] MINI-BAG 05/13/20 at 2145, 50 mL
Reas on for Anti-Infec tive: Documented Infection< br>Documen con Infection Site: Urine
D uration of Therapy: Other (see Comments) NaCl 0.9% 2020- No 1000mL at 999 Uni vers (NS) bolus 05-14-08 mL/hr, ity of infusion 02:15: 02:38 1,000 mL, [place] as 1,000 mL 00 :00 IV Medical Infusion, Branch ONCE, 1 dose, [place] 05/13/20 at 2015, STAT ketorolac 2020- No 30mg 30 mg, Unive rs (TORADOL) 05-14 03-08 Slow IV ity of injection 01:30: 01:28 [place], [place] 30 mg 00 :00 ONCE, 1 Medical dose, [place] Branch 05/13/20 at 1930, SHAYNA
Fa culty member approving Restricted medication : [place] PAZ ibuprofen Yes [id number] 600mg Take 1 U nivers 600 mg 3-07 tablet by ity of tablet 00:00: mouth [place] 00 every 6 Medical (six) Branch hours as needed for Pain (scale 4-6). ondansetron Yes [id number] 4mg Take 1 [facility] (ZOFRAN 3-07 tablet by ity of ODT) 4 mg 00:00: mouth [place] disintegrat 00 every 8 Medic al ing tablet (eight) Branch hours as needed for Nausea and Vomiting (N/V). ibuprofen Yes [id number] 600mg Take 1 U nivers 600 mg 3-07 tablet by ity of tablet 00:00: mouth [place] 00 every 6 Medical (six) Branch hours as needed for Pain (scale 4-6). ondansetron Yes [id number] 4mg Take 1 [facility] (ZOFRAN 3-07 tablet by ity of ODT) 4 mg 00:00: mouth [place] disintegrat 00 every 8 Medic al ing tablet (eight) Branch hours as needed for Nausea and Vomiting (N/V). ibuprofen Yes [id number] 600mg Take 1 U nivers 600 mg 3-07 tablet by ity of tablet 00:00: mouth [place] 00 every 6 Medical (six) Branch hours as needed for Pain (scale 4-6). ondansetron 2021-0 Yes [id number] 4mg Take 1 [facility] (ZOFRAN 3-07 tablet by ity of ODT) 4 mg 00:00: mouth [place] disintegrat 00 every 8 Medic al ing tablet (eight) Branch hours as needed for Nausea and Vomiting (N/V). ibuprofen 2020-0 Yes [id number] 600mg Take 1 U nivers 600 mg 3-07 tablet by ity of tablet 00:00: mouth [place] 00 every 6 Medical (six) Branch hours as needed for Pain (scale 4-6). ondansetron 2020-0 Yes [id number] 4mg Take 1 [facility] (ZOFRAN 3-07 tablet by ity of ODT) 4 mg 00:00: mouth [place] disintegrat 00 every 8 Medic al ing tablet (eight) Branch hours as needed for Nausea and Vomiting (N/V). ibuprofen 2020-0 Yes [id number] 600mg Take 1 U nivers 600 mg 3-07 tablet by ity of tablet 00:00: mouth [place] 00 every 6 Medical (six) Branch hours as needed for Pain (scale 4-6). ondansetron 2020-0 Yes [id number] 4mg Take 1 [facility] (ZOFRAN 3-07 tablet by ity of ODT) 4 mg 00:00: mouth [place] disintegrat 00 every 8 Medic al ing tablet (eight) Branch hours as needed for Nausea and Vomiting (N/V). ibuprofen 2020-0 Yes [id number] 600mg Take 1 U nivers 600 mg 3-07 tablet by ity of tablet 00:00: mouth [place] 00 every 6 Medical (six) Branch hours as needed for Pain (scale 4-6). ondansetron 1-0 Yes [id number] 4mg Take 1 [facility] (ZOFRAN 3-07 tablet by ity of ODT) 4 mg 00:00: mouth [place] disintegrat 00 every 8 Medic al ing tablet (eight) Branch hours as needed for Nausea and Vomiting (N/V). ibuprofen 2021-0 Yes [id number] 600mg Take 1 U nivers 600 mg 3-07 tablet by ity of tablet 00:00: mouth [place] 00 every 6 Medical (six) Branch hours as needed for Pain (scale 4-6). ondansetron 2021-0 Yes [id number] 4mg Take 1 [facility] (ZOFRAN 3-07 tablet by ity of ODT) 4 mg 00:00: mouth [place] disintegrat 00 every 8 Medic al ing tablet (eight) Branch hours as needed for Nausea and Vomiting (N/V). ibuprofen 2020-0 Yes [id number] 600mg Take 1 U nivers 600 mg 3-07 tablet by ity of tablet 00:00: mouth [place] 00 every 6 Medical (six) Branch hours as needed for Pain (scale 4-6). ondansetron 2020-0 Yes [id number] 4mg Take 1 [facility] (ZOFRAN 3-07 tablet by ity of ODT) 4 mg 00:00: mouth [place] disintegrat 00 every 8 Medic al ing tablet (eight) Branch hours as needed for Nausea and Vomiting (N/V). ibuprofen 0 Yes [id number] 600mg Take 1 U nivers 600 mg 3-07 tablet by ity of tablet 00:00: mouth [place] 00 every 6 Medical (six) Branch hours as needed for Pain (scale 4-6). ondansetron 0 Yes [id number] 4mg Take 1 [facility] (ZOFRAN 3-07 tablet by ity of ODT) 4 mg 00:00: mouth [place] disintegrat 00 every 8 Medic al ing tablet (eight) Branch hours as needed for Nausea and Vomiting (N/V). ibuprofen 0 Yes [id number] 600mg Take 1 U nivers 600 mg 3-07 tablet by ity of tablet 00:00: mouth [place] 00 every 6 Medical (six) Branch hours as needed for Pain (scale 4-6). ondansetron 2020-0 Yes [id number] 4mg Take 1 [facility] (ZOFRAN 3-07 tablet by ity of ODT) 4 mg 00:00: mouth [place] disintegrat 00 every 8 Medic al ing tablet (eight) Branch hours as needed for Nausea and Vomiting (N/V). ibuprofen 2020-0 Yes [id number] 600mg Take 1 U nivers 600 mg 3-07 tablet by ity of tablet 00:00: mouth [place] 00 every 6 Medical (six) Branch hours as needed for Pain (scale 4-6). ondansetron 2020-0 Yes [id number] 4mg Take 1 [facility] (ZOFRAN 3-07 tablet by ity of ODT) 4 mg 00:00: mouth [place] disintegrat 00 every 8 Medic al ing tablet (eight) Branch hours as needed for Nausea and Vomiting (N/V). ibuprofen 2021-0 Yes [id number] 600mg Take 1 U nivers 600 mg 3-07 tablet by ity of tablet 00:00: mouth [place] 00 every 6 Medical (six) Branch hours as needed for Pain (scale 4-6). ondansetron 2021-0 Yes [id number] 4mg Take 1 [facility] (ZOFRAN 3-07 tablet by ity of ODT) 4 mg 00:00: mouth [place] disintegrat 00 every 8 Medic al ing tablet (eight) Branch hours as needed for Nausea and Vomiting (N/V). ibuprofen 2021-0 Yes [id number] 600mg Take 1 U nivers 600 mg 3-07 tablet by ity of tablet 00:00: mouth [place] 00 every 6 Medical (six) Branch hours as needed for Pain (scale 4-6). ondansetron 2021-0 Yes [id number] 4mg Take 1 [facility] (ZOFRAN 3-07 tablet by ity of ODT) 4 mg 00:00: mouth [place] disintegrat 00 every 8 Medic al ing tablet (eight) Branch hours as needed for Nausea and Vomiting (N/V). ibuprofen 2020-0 Yes [id number] 600mg Take 1 U nivers 600 mg 3-07 tablet by ity of tablet 00:00: mouth [place] 00 every 6 Medical (six) Branch hours as needed for Pain (scale 4-6). ondansetron 2021-0 Yes [id number] 4mg Take 1 [facility] (ZOFRAN 3-07 tablet by ity of ODT) 4 mg 00:00: mouth [place] disintegrat 00 every 8 Medic al ing tablet (eight) Branch hours as needed for Nausea and Vomiting (N/V). ibuprofen 2021-0 Yes [id number] 600mg Take 1 U nivers 600 mg 3-07 tablet by ity of tablet 00:00: mouth [place] 00 every 6 Medical (six) Branch hours as needed for Pain (scale 4-6). ondansetron 2021-0 Yes [id number] 4mg Take 1 [facility] (ZOFRAN 3-07 tablet by ity of ODT) 4 mg 00:00: mouth [place] disintegrat 00 every 8 Medic al ing tablet (eight) Branch hours as needed for Nausea and Vomiting (N/V). ibuprofen 2020-0 Yes [id number] 600mg Take 1 U nivers 600 mg 3-07 tablet by ity of tablet 00:00: mouth [place] 00 every 6 Medical (six) Branch hours as needed for Pain (scale 4-6). ondansetron 2020-0 Yes [id number] 4mg Take 1 [facility] (ZOFRAN 3-07 tablet by ity of ODT) 4 mg 00:00: mouth [place] disintegrat 00 every 8 Medic al ing tablet (eight) Branch hours as needed for Nausea and Vomiting (N/V). ibuprofen 2020-0 Yes [id number] 600mg Take 1 U nivers 600 mg 3-07 tablet by ity of tablet 00:00: mouth [place] 00 every 6 Medical (six) Branch hours as needed for Pain (scale 4-6). ibuprofen 2020-0 Yes [id number] 600mg Take 1 U nivers 600 mg 3-07 tablet by ity of tablet 00:00: mouth [place] 00 every 6 Medical (six) Branch hours as needed for Pain (scale 4-6). ibuprofen 2020-0 Yes [id number] 600mg Take 1 U nivers 600 mg 3-07 tablet by ity of tablet 00:00: mouth [place] 00 every 6 Medical (six) Branch hours as needed for Pain (scale 4-6). ibuprofen 2020-0 Yes [id number] 600mg Take 1 U nivers 600 mg 3-07 tablet by ity of tablet 00:00: mouth [place] 00 every 6 Medical (six) Branch hours as needed for Pain (scale 4-6). ibuprofen 2020-0 Yes [id number] 600mg Take 1 U nivers 600 mg 3-07 tablet by ity of tablet 00:00: mouth [place] 00 every 6 Medical (six) Branch hours as needed for Pain (scale 4-6). ibuprofen 2020-0 Yes [id number] 600mg Take 1 U nivers 600 mg 3-07 tablet by ity of tablet 00:00: mouth [place] 00 every 6 Medical (six) Branch hours as needed for Pain (scale 4-6). ibuprofen 2020-0 Yes [id number] 600mg Take 1 U nivers 600 mg 3-07 tablet by ity of tablet 00:00: mouth [place] 00 every 6 Medical (six) Branch hours as needed for Pain (scale 4-6). ibuprofen 2020-0 Yes [id number] 600mg Take 1 U nivers 600 mg 3-07 tablet by ity of tablet 00:00: mouth [place] 00 every 6 Medical (six) Branch hours as needed for Pain (scale 4-6). ibuprofen 0 Yes [id number] 600mg Take 1 U nivers 600 mg 3-07 tablet by ity of tablet 00:00: mouth [place] 00 every 6 Medical (six) Branch hours as needed for Pain (scale 4-6). ibuprofen 0 Yes [id number] 600mg Take 1 U nivers 600 mg 3-07 tablet by ity of tablet 00:00: mouth [place] 00 every 6 Medical (six) Branch hours as needed for Pain (scale 4-6). ibuprofen Yes [id number] 600mg Take 1 U nivers 600 mg 3-07 tablet by ity of tablet 00:00: mouth [place] 00 every 6 Medical (six) Branch hours as needed for Pain (scale 4-6). ibuprofen 2020- No [id number] 600mg Take 1 [facility] 600 mg 05-13- tablet by ity of tablet 00:00: 00:00 mouth [place] 00 :00 every 6 Medical (six) Branch hours as needed for Pain (scale 4-6). ibuprofen 2020- No [id number] 600mg Take 1 [facility] 600 mg 05-13- tablet by ity of tablet 00:00: 00:00 mouth [place] 00 :00 every 6 Medical (six) Branch hours as needed for Pain (scale 4-6). ibuprofen 2020- No [id number] 600mg Take 1 [facility] 600 mg 05-13- tablet by ity of tablet 00:00: 00:00 mouth [place] 00 :00 every 6 Medical (six) Branch hours as needed for Pain (scale 4-6). ondansetron 2020- No [id number] 4mg Take 1 [facility] (ZOFRAN 05-13 tablet by ity of ODT) 4 mg 00:00: 00:00 mouth [place] disintegrat 00 :00 every 8 Medic al ing tablet (eight) Branch hours as needed for Nausea and Vomiting (N/V). cephALEXin 2020- No [id number] 500mg Take 1 [facility] (KEFLEX) 3-07 03-18 capsule by ity of 500 mg 00:00: 04:59 mouth 3 [place] capsule 00 :00 (three) Medical times Branch daily for 10 days. metroNIDAZO 2019- 2020- No [id number] 500mg Take 1 [facility] LE 500 mg 1-13 11-21 tablet by ity of tablet 00:00: 05:59 mouth 2 [place] 00 :00 (two) Medical times [place] daily for 7 days. metroNIDAZO 2019-03- No [id number] 500mg Take 1 [facility] LE 500 mg 1-13 11-21 tablet by ity of tablet 00:00: 05:59 mouth 2 [place] 00 :00 (two) Medical times [place] daily for 7 days. azithromyci 2019-03- No [id number] 1000mg Take 2 Univers n 500 mg 0-14 10-16 tablets by ity of tablet 00:00: 04:59 mouth [place] 00 :00 daily for Medical 1 day. Branch azithromyci 2019-03 2020- No [id number] 1000mg Take 2 [facility] n 500 mg 0-14 10-16 tablets by ity of tablet 00:00: 04:59 mouth [place] 00 :00 daily for Medical 1 day. Branch fluconazole 2020- No [id number] 150mg Take 1 [facility] (DIFLUCAN) 8-17 08-18 tablet by ity of 150 mg 00:00: 04:59 [place] tablet 00 :00 now for 1 Medical dose. Branch metroNIDAZO 2020- No [id number] 500mg Take 1 [facility] LE (FLAGYL) 7-22 07-30 tablet by it y of 500 mg 00:00: 04:59 mouth 2 [place] tablet 00 :00 (two) Medical times [place] daily for 7 days. topiramate 2020-0 Yes 100mg Take 100 [facility] [place] (TOPAMAX) 7-21 mg by ity of 100 mg 19:33: mouth. [place] tablet [address] [place] [address] topiramate 2020-0 Yes 100mg Take 100 [facility] [place] (TOPAMAX) 7-21 mg by ity of 100 mg 19:33: mouth. [place] tablet [address] [place] [address] topiramate 2020-0 Yes 100mg Take 100 [facility] [place] (TOPAMAX) 7-21 mg by ity of 100 mg 19:33: mouth. [place] tablet [address] [place] [address] topiramate 2020-0 Yes 100mg Take 100 [place] (TOPAMAX) 7-21 mg by ity of 100 mg 19:33: mouth. [place] tablet [address] [place] [address] topiramate 2020-0 Yes 100mg Take 100 [place] (TOPAMAX) 7-21 mg by ity of 100 mg 19:33: mouth. [place] tablet [address] [place] [address] topiramate 2020-0 Yes 100mg Take 100 [facility] [place] (TOPAMAX) 7-21 mg by ity of 100 mg 19:33: mouth. [address] topiramate 2020-0 Yes 100mg Take 100 [facility] [place] (TOPAMAX) 7-21 mg by ity of 100 mg 19:33: mouth. [address] topiramate 2020-0 Yes 100mg Take 100 [facility] [place] (TOPAMAX) 7-21 mg by ity of 100 mg 19:33: mouth. [address] topiramate 2020-0 Yes 100mg Take 100 [facility] [place] (TOPAMAX) 7-21 mg by ity of 100 mg 19:33: mouth. [address] topiramate 2020-0 Yes 100mg Take 100 [facility] [place] (TOPAMAX) 7-21 mg by ity of 100 mg 19:33: mouth. [address] topiramate 2020-0 Yes 100mg Take 100 [facility] [place] (TOPAMAX) 7-21 mg by ity of 100 mg 19:33: mouth. [address] topiramate 2020-0 Yes 100mg Take 100 [facility] [place] (TOPAMAX) 7-21 mg by ity of 100 mg 19:33: mouth. [address] topiramate 2020-0 Yes 100mg Take 100 [facility] [place] (TOPAMAX) 7-21 mg by ity of 100 mg 19:33: mouth. [address] topiramate 2020-0 Yes 100mg Take 100 [facility] [place] (TOPAMAX) 7-21 mg by ity of 100 mg 19:33: mouth. [address] topiramate 2020-0 Yes 100mg Take 100 [facility] [place] (TOPAMAX) 7-21 mg by ity of 100 mg 19:33: mouth. [address] topiramate 2020-0 Yes 100mg Take 100 [facility] [place] (TOPAMAX) 7-21 mg by ity of 100 mg 19:33: mouth. [place] tablet [address] [place] [address] topiramate 2020-0 Yes 100mg Take 100 [facility] [place] (TOPAMAX) 7-21 mg by ity of 100 mg 19:33: mouth. [place] tablet [address] [place] [address] topiramate 2020-0 Yes 100mg Take 100 [facility] [place] (TOPAMAX) 7-21 mg by ity of 100 mg 19:33: mouth. [place] tablet [address] [place] [address] topiramate 2020-0 Yes 100mg Take 100 [facility] [place] (TOPAMAX) 7-21 mg by ity of 100 mg 19:33: mouth. [place] tablet [address] [place] [address] topiramate 2020-0 Yes 100mg Take 100 [facility] [place] (TOPAMAX) 7-21 mg by ity of 100 mg 19:33: mouth. [place] tablet [address] [place] [address] topiramate 2020-0 Yes 100mg Take 100 [facility] [place] (TOPAMAX) 7-21 mg by ity of 100 mg 19:33: mouth. [place] tablet [address] [place] [address] topiramate 2020-0 Yes 100mg Take 100 [facility] [place] (TOPAMAX) 7-21 mg by ity of 100 mg 19:33: mouth. [address] topiramate 2020-0 Yes 100mg Take 100 [facility] [place] (TOPAMAX) 7-21 mg by ity of 100 mg 19:33: mouth. [place] tablet [address] [place] [address] topiramate 2020-0 Yes 100mg Take 100 [facility] [place] (TOPAMAX) 7-21 mg by ity of 100 mg 19:33: mouth. [address] topiramate 2020-0 Yes 100mg Take 100 [facility] [place] (TOPAMAX) 7-21 mg by ity of 100 mg 19:33: mouth. [address] topiramate 2020-0 Yes 100mg Take 100 [facility] [place] (TOPAMAX) 7-21 mg by ity of 100 mg 19:33: mouth. [place] tablet [address] [place] [address] topiramate 2020-0 Yes 100mg Take 100 [facility] [place] (TOPAMAX) 7-21 mg by ity of 100 mg 19:33: mouth. [address] topiramate 2020-0 Yes 100mg Take 100 [facility] [place] (TOPAMAX) 7-21 mg by ity of 100 mg 19:33: mouth. [place] [address] topiramate 2020-0 Yes 100mg Take 100 [facility] [place] (TOPAMAX) 7-21 mg by ity of 100 mg 19:33: mouth. [place] tablet 04 Medical Branch topiramate 2020-0 Yes 100mg Take 100 [facility] [place] (TOPAMAX) 7-21 mg by ity of 100 mg 19:33: mouth. [place] tablet 04 Medical Branch topiramate 2020-0 Yes 100mg Take 100 [facility] [place] (TOPAMAX) 7-21 mg by ity of 100 mg 19:33: mouth. [place] tablet 04 Medical Branch topiramate 2020-0 Yes 100mg Take 100 [facility] [place] (TOPAMAX) 7-21 mg by ity of 100 mg 19:33: mouth. [place] tablet 04 [facility] Branch topiramate 2020-0 Yes 100mg Take 100 [facility] [place] (TOPAMAX) 7-21 mg by ity of 100 mg 19:33: mouth. [place] tablet 04 Medical Branch topiramate 2020-0 Yes 100mg Take 100 [facility] [place] (TOPAMAX) 6-11 mg by ity of 100 mg 13:24: mouth. [place] tablet 15 Medical Branch topiramate 2019-0 Yes 100mg Take 100 [facility] [place] (TOPAMAX) 6-11 mg by ity of 100 mg 13:24: mouth. [place] tablet 15 Medical Branch montelukast 2019-0 Yes [id number] 10mg Take 1 [facility] 10 mg 6-11 tablet by ity of tablet 00:00: mouth [place] 00 daily. Medical Branch loratadine 2019-0 Yes [id number] 10mg Take 1 [facility] 10 mg 6-11 tablet by ity of tablet 00:00: mouth [place] 00 daily. Medical Branch benzonatate 2020-0 Yes [id number] 100mg Take 1 [facility] 100 mg 6-11 capsule by ity of capsule 00:00: mouth 3 00 (three) Medical times Branch daily as needed for Cough. montelukast 2020-0 Yes [id number] 10mg Take 1 [facility] 10 mg 6-11 tablet by ity of tablet 00:00: mouth [place] 00 daily. Medical Branch loratadine 2020-0 Yes [id number] 10mg Take 1 [facility] 10 mg 6-11 tablet by ity of tablet 00:00: mouth [place] 00 daily. Medical Branch benzonatate 2020-0 Yes [id number] 100mg Take 1 [facility] 100 mg 6-11 capsule by ity of capsule 00:00: mouth 3 [place] 00 (three) Medical times [place] daily as needed for Cough. montelukast 2020-0 2020- No [id number] 10mg Take 1 [facility] 10 mg 6-11 07-21 tablet by ity of tablet 00:00: 00:00 mouth [place] 00 :00 daily. Medical Branch loratadine 2020-0 2020- No [id number] 10mg Take 1 [facility] 10 mg 6-11 07-21 tablet by ity of tablet 00:00: 00:00 mouth [place] 00 :00 daily. Medical Branch benzonatate 2020-0 2020- No [id number] 100mg Take 1 [facility] 100 mg 6-11 07-21 capsule by ity of capsule 00:00: 00:00 mouth 3 [place] 00 :00 (three) Medical times [place] daily as needed for Cough. montelukast 2019-0 2020- No [id number] 10mg Take 1 [facility] 10 mg 6-11 07-21 tablet by ity of tablet 00:00: 00:00 mouth [place] 00 :00 daily. Medical Branch loratadine 2019-0 2020- No [id number] 10mg Take 1 [facility] 10 mg 6-11 07-21 tablet by ity of tablet 00:00: 00:00 mouth [place] 00 :00 daily. Medical Branch benzonatate 2019-0 2020- No [id number] 100mg Take 1 [facility] 100 mg 6- 07-21 capsule by ity of capsule 00:00: 00:00 mouth 3 [place] 00 :00 (three) [facility] times [place] daily as needed for Cough. QUEtiapine 2019-0 2020- No TAKE 1 [facility] ers 25 mg 6-06 07-21 TABLET BY ity of tablet 00:00: 00:00 M[place]TH [place]CE [place] 00 :[place] DAILY AT Medical BEDTIME Branch QUEtiapine 2020-0 2020- No TAKE 1 [facility] ers 25 mg 6- 07-21 TABLET BY ity of tablet 00:00: 00:00 M[place]TH [place]CE [place] 00 :[place] DAILY AT Medical BEDTIME Branch iohexol 2019- 2020- No 120mL 120 mL, [facility] (OMNIPAQUE 07-28 Intravenou it y of 350 04:15: 04:15 s, ONCE, 1 [place] BULK-150 00 :00 dose, [facility] l mL) 07/28/19 at Branch injection 2315, 120 mL Routine guaiFENesin 2019-0 2020- No 200mg 200 mg, U nivers 100 mg/5 mL - 05-22 Oral, ity of solution 23:30: 00:27 ONCE, 1 [place] 200 mg 00 :00 dose, [facility] Medical 07/28/19 at Branch 1845, SHAY[place] albuterol 2019-0 2020- No 2{puff} 2 Puff, U nivers (VENTOLIN) 07-27 05-22 Inhalation it y of inhaler 2 23:30: 00:28 , ONCE, 1 [place] Puff 00 :00 dose, [facility] 07/28/19 at Branch [facility]5, SHAYNA
Is this order for a patient with suspected or confirmed COVID-19 infection? Yes dextrometho 2020-0 Yes [id number] 10mL Take 10 mL [facility] rphan-guaif 5-21 by mouth ity of enesin 00:00: every 8 [place] 10-100 mg/5 00 (eight) Medic al mL solution hours as Bran ch needed for Cough. albuterol 2019-0 Yes [id number] 2{puff} Inhale 2 [facility] 90 5-21 Puffs ity of mcg/actuati 00:00: every 4 [place] on inhaler 00 (four) Medical hours as Branch needed for Wheezing, Shortness of Breath or Chest tightness. dextrometho 2020-0 Yes [id number] 10mL Take 10 mL [facility] rphan-guaif 5-21 by mouth ity of enesin 00:00: every 8 [place] 10-100 mg/5 00 (eight) Medic al mL solution hours as Bran ch needed for Cough. albuterol 2020-0 Yes [id number] 2{puff} Inhale 2 [facility] 90 5-21 Puffs ity of mcg/actuati 00:00: every 4 [place] on inhaler 00 (four) Medical hours as Branch needed for Wheezing, Shortness of Breath or Chest tightness. dextrometho 2020-0 Yes [id number] 10mL Take 10 mL [facility] rphan-guaif 5-21 by mouth ity of enesin 00:00: every 8 [place] 10-100 mg/5 00 (eight) Medic al mL solution hours as Bran ch needed for Cough. albuterol 2020-0 Yes [id number] 2{puff} Inhale 2 [facility] 90 5-21 Puffs ity of mcg/actuati 00:00: every 4 [place] on inhaler 00 (four) Medical hours as Branch needed for Wheezing, Shortness of Breath or Chest tightness. dextrometho 2020-0 Yes [id number] 10mL Take 10 mL [facility] rphan-guaif 5-21 by mouth ity of enesin 00:00: every 8 [place] 10-100 mg/5 00 (eight) Medic al mL solution hours as Bran ch needed for Cough. albuterol 2019-0 Yes [id number] 2{puff} Inhale 2 [facility] 90 5-21 Puffs ity of mcg/actuati 00:00: every 4 [place] on inhaler 00 (four) Medical hours as Branch needed for Wheezing, Shortness of Breath or Chest tightness. dextrometho 2020-0 Yes [id number] 10mL Take 10 mL [facility] rphan-guaif 5-21 by mouth ity of enesin 00:00: every 8 [place] 10-100 mg/5 00 (eight) Medic al mL solution hours as Bran ch needed for Cough. albuterol 2019-0 Yes [id number] 2{puff} Inhale 2 [facility] 90 5-21 Puffs ity of mcg/actuati 00:00: every 4 [place] on inhaler 00 (four) Medical hours as Branch needed for Wheezing, Shortness of Breath or Chest tightness. dextrometho 2019-0 2020- No [id number] 10mL Take 10 mL [facility] rphan-guaif 5-21 07-21 by mouth ity of enesin 00:00: 00:00 every 8 [place] 10-100 mg/5 00 :00 (eight) Medic al mL solution hours as Bran ch needed for Cough. albuterol 0 2020- No [id number] 2{puff} Inhale 2 [facility] 90 5-21 07-21 Puffs ity of mcg/actuati 00:00: 00:00 every 4 [place] on inhaler 00 :00 (four) Medical hours as Branch needed for Wheezing, Shortness of Breath or Chest tightness. dextrometho 2020-0 2020- No [id number] 10mL Take 10 mL [facility] rphan-guaif 5-21 07-21 by mouth ity of enesin 00:00: 00:00 every 8 [place] 10-100 mg/5 00 :00 (eight) Medic al mL solution hours as Bran ch needed for Cough. albuterol 2020- No [id number] 2{puff} Inhale 2 [facility] 90 5-21 07-21 Puffs ity of mcg/actuati 00:00: 00:00 every 4 [place] inhaler 00 :00 (four) Medical hours as Branch needed for Wheezing, Shortness of Breath or Chest tightness. predniSONE 2019- 2020- No [id number] 30mg Take 3 [facility] 10 mg 5-21 05-26 tablets by ity of tablet 00:00: 04:59 mouth [place] 00 :00 daily for Medical 4 days. Branch predniSONE 2019- 2020- No [id number] 30mg Take 3 [facility] 10 mg 5-21 05-26 tablets by ity of tablet 00:00: 04:59 mouth [place] 00 :00 daily for Medical 4 days. Branch levonorgest 2019-0 Yes [id number] 1{tbl} Take 1 [facility] rel-ethinyl 5-11 tablet by ity of estradiol 00:00: mouth [place] (SRONYX) 00 daily. Medical 0.1-20 Branch mg-mcg per tablet levonorgest 2020-0 Yes [id number] 1{tbl} Take 1 [facility] rel-ethinyl 5-11 tablet by ity of estradiol 00:00: mouth [place] (SRONYX) 00 daily. Medical 0.1-20 Branch mg-mcg per tablet levonorgest 2020-0 Yes [id number] 1{tbl} Take 1 [facility] rel-ethinyl 5-11 tablet by ity of estradiol 00:00: mouth [place] (SRONYX) 00 daily. Medical 0.1-20 Branch mg-mcg per tablet levonorgest 2020-0 Yes [id number] 1{tbl} Take 1 [facility] rel-ethinyl 5-11 tablet by ity of estradiol 00:00: mouth [place] (SRONYX) 00 daily. Medical 0.1-20 Branch mg-mcg per tablet levonorgest 2020-0 Yes [id number] 1{tbl} Take 1 [facility] rel-ethinyl 5-11 tablet by ity of estradiol 00:00: mouth [place] (SRONYX) 00 daily. Medical 0.1-20 Branch mg-mcg per tablet levonorgest 2020-0 Yes [id number] 1{tbl} Take 1 [facility] rel-ethinyl 5-11 tablet by ity of estradiol 00:00: mouth [place] (SRONYX) 00 daily. Medical 0.1-20 Branch mg-mcg per tablet levonorgest 2019- No [id number] 1{tbl} Take 1 [facility] rel-ethinyl 07-17- tablet by it y of estradiol 00:00: 00:00 mouth [place] (SRONYX) 00 :00 daily. Medical 0.1-20 Branch mg-mcg per tablet levonorgest 2020- No [id number] 1{tbl} Take 1 [facility] rel-ethinyl 07-17- tablet by it y of estradiol 00:00: 00:00 mouth [place] (SRONYX) 00 :00 daily. Medical 0.1-20 Branch mg-mcg per tablet divalproex 2020- No TAKE 1 Univ ers ER 500 mg 07-12 TABLET BY ity of 24 hr 00:00: 00:00 MOUTH ONCE [place] tablet 00 :00 DAILY AT [facility] BEDTIME [place] divalproex 2020- No TAKE 1 Univ ers ER 500 mg 07-12 TABLET BY ity of 24 hr 00:00: 00:00 MOUTH ONCE [place] tablet 00 :00 DAILY AT [facility] BEDTIME [place] acetaminoph 2020- No 1{tbl} 1 tablet, Univers en-codeine 06-26- Oral, ity of (TYLENOL 01:45: 01:56 ONCE, 1 [place] #3) 300-30 00 :00 dose, [facility] mg tablet 1 06/26/19 at Br anch tablet 2044, SHAYNA ketorolac 2019- No 30mg 30 mg, Unive rs (TORADOL) 06-26-20 Intramuscu ity of injection 00:30: 00:37 [place], ONCE, [place] 30 mg 00 :00 1 dose, [facility] 06/26/19 at 1930, SHAYNA
Fa culty member approving Restricted medication : LORY PIMENTEL I naproxen 2019-0 Yes [id number] 500mg Take 1 [facility] [place] (NAPROSYN) 4-19 tablet by ity of 500 mg 00:00: mouth 2 [place] tablet 00 (two) Medical times [place] daily with meals. naproxen 2020-0 Yes [id number] 500mg Take 1 [facility] [place] (NAPROSYN) 4-19 tablet by ity of 500 mg 00:00: mouth 2 [place] tablet 00 (two) Medical times Branch daily with meals. naproxen 2020-0 Yes [id number] 500mg Take 1 [facility] [place] (NAPROSYN) 4-19 tablet by ity of 500 mg 00:00: mouth 2 [place] tablet 00 (two) Medical times Branch daily with meals. naproxen 2020-0 Yes [id number] 500mg Take 1 [facility] [place] (NAPROSYN) 4-19 tablet by ity of 500 mg 00:00: mouth 2 [place] tablet 00 (two) Medical times Branch daily with meals. naproxen 2020-0 Yes [id number] 500mg Take 1 [facility] [place] (NAPROSYN) 4-19 tablet by ity of 500 mg 00:00: mouth 2 [place] tablet 00 (two) Medical times Branch daily with meals. naproxen 2020-0 Yes [id number] 500mg Take 1 [facility] [place] (NAPROSYN) 4-19 tablet by ity of 500 mg 00:00: mouth 2 [place] tablet 00 (two) Medical times Branch daily with meals. naproxen 2020-0 Yes [id number] 500mg Take 1 [facility] [place] (NAPROSYN) 4-19 tablet by ity of 500 mg 00:00: mouth 2 [place] tablet 00 (two) Medical times Branch daily with meals. naproxen 2020-0 2020- No [id number] 500mg Take 1 U nivers (NAPROSYN) 4-19 07-21 tablet by ity of 500 mg 00:00: 00:00 mouth 2 [place] tablet 00 :00 (two) Medical times Branch daily with meals. naproxen 2020-0 2020- No [id number] 500mg Take 1 U nivers (NAPROSYN) 4-19 07-21 tablet by ity of 500 mg 00:00: 00:00 mouth 2 [place] tablet 00 :00 (two) Medical times Branch daily with meals. cephALEXin 2020-0 2020- No [id number] 500mg Take 1 Univers (KEFLEX) 4-19 04-30 capsule by ity of 500 mg 00:00: 04:59 mouth 2 [place] capsule 00 :00 (two) Medical times Branch daily for 10 days. azithromyci 2020-0 2020- No [id number] 1000mg Take 2 Univers n 3-12 03-13 tablets by ity of (ZITHROMAX) 00:00: 04:59 mouth once [place] 500 mg 00 :00 now for 1 Medical tablet dose. Branch Nitrofurant 2019-0 2020- No [id number] 100mg Take 1 [facility] oin&Nit. 3-10 -18 capsule by ity of Macrocryst 00:00: 04:59 mouth 2 [place] (MACROBID) 00 :00 (two) Medical 100 mg times Branch capsule daily for 7 days. Nitrofurant 2019-0 2020- No [id number] 100mg Take 1 [facility] oin&Nit. 3-10 -18 capsule by ity of Macrocryst 00:00: 04:59 mouth 2 [place] (MACROBID) 00 :00 (two) Medical 100 mg times Branch capsule daily for 7 days. Nitrofurant 2019-0 2020- No [id number] 100mg Take 1 [facility] oin&Nit. 3-10 -18 capsule by ity of Macrocryst 00:00: 04:59 mouth 2 [place] (MACROBID) 00 :00 (two) Medical 100 mg times Branch capsule daily for 7 days. Nitrofurant 2019-0 2020- No [id number] 100mg Take 1 [facility] oin&Nit. 3-10 -18 capsule by ity of Macrocryst 00:00: 04:59 mouth 2 [place] (MACROBID) 00 :00 (two) Medical 100 mg times Branch capsule daily for 7 days. levETIRAcet 2019-0 2020- No 1500mg 1,500 mg, Univers am (KEPPRA) 2-02 07-12 Oral, ity of tablet 20:15: 19:20 ONCE, 1 [place] 1,500 mg 00 :00 dose, Wed Medica l 04/20/19 at Branch 1415, Routine levETIRAcet 2020-0 Yes [id number] 1500mg Take 2 [facility] am (KEPPRA) 2-12 tablets by it y of 750 mg 00:00: mouth 2 [place] tablet 00 (two) Medical times [place] daily. levETIRAcet 2020-0 Yes [id number] 1500mg Take 2 [facility] am (KEPPRA) 2-12 tablets by it y of 750 mg 00:00: mouth 2 [place] tablet 00 (two) Medical times [place] daily. levETIRAcet 2020-0 Yes [id number] 1500mg Take 2 [facility] am (KEPPRA) 2-12 tablets by it y of 750 mg 00:00: mouth 2 [place] tablet 00 (two) Medical times Branch daily. levETIRAcet 2020-0 Yes [id number] 1500mg Take 2 [facility] am (KEPPRA) 2-12 tablets by it y of 750 mg 00:00: mouth 2 [place] tablet 00 (two) Medical times Branch daily. levETIRAcet 2020-0 Yes [id number] 1500mg Take 2 [facility] am (KEPPRA) 2-12 tablets by it y of 750 mg 00:00: mouth 2 [place] tablet 00 (two) Medical times Branch daily. levETIRAcet 2020-0 Yes [id number] 1500mg Take 2 [facility] am (KEPPRA) 2-12 tablets by it y of 750 mg 00:00: mouth 2 [place] tablet 00 (two) Medical times Branch daily. levETIRAcet 2020-0 Yes [id number] 1500mg Take 2 [facility] am (KEPPRA) 2-12 tablets by it y of 750 mg 00:00: mouth 2 [place] tablet 00 (two) Medical times Branch daily. levETIRAcet 2020-0 Yes [id number] 1500mg Take 2 [facility] am (KEPPRA) 2-12 tablets by it y of 750 mg 00:00: mouth 2 [place] tablet 00 (two) Medical times Branch daily. levETIRAcet 2020-0 Yes [id number] 1500mg Take 2 Univers am (KEPPRA) 2-12 tablets by it y of 750 mg 00:00: mouth 2 [place] tablet 00 (two) Medical times Branch daily. levETIRAcet 2020-0 Yes [id number] 1500mg Take 2 [facility] am (KEPPRA) 2-12 tablets by it y of 750 mg 00:00: mouth 2 [place] tablet 00 (two) Medical times Branch daily. levETIRAcet 2020-0 Yes [id number] 1500mg Take 2 [facility] am (KEPPRA) 2-12 tablets by it y of 750 mg 00:00: mouth 2 [place] tablet 00 (two) Medical times Branch daily. levETIRAcet 2020-0 Yes [id number] 1500mg Take 2 [facility] am (KEPPRA) 2-12 tablets by it y of 750 mg 00:00: mouth 2 [place] tablet 00 (two) Medical times Branch daily. levETIRAcet 2020-0 Yes [id number] 1500mg Take 2 [facility] am (KEPPRA) 2-12 tablets by it y of 750 mg 00:00: mouth 2 [place] tablet 00 (two) Medical times Branch daily. levETIRAcet 2020-0 Yes [id number] 1500mg Take 2 [facility] am (KEPPRA) 2-12 tablets by it y of 750 mg 00:00: mouth 2 [place] tablet 00 (two) Medical times Branch daily. levETIRAcet 2020-0 Yes [id number] 1500mg Take 2 [facility] am (KEPPRA) 2-12 tablets by it y of 750 mg 00:00: mouth 2 [place] tablet 00 (two) Medical times Branch daily. levETIRAcet 2020-0 Yes [id number] 1500mg Take 2 Univers am (KEPPRA) 2-12 tablets by it y of 750 mg 00:00: mouth 2 [place] tablet 00 (two) Medical times Branch daily. levETIRAcet 2020-0 Yes [id number] 1500mg Take 2 [facility] am (KEPPRA) 2-12 tablets by it y of 750 mg 00:00: mouth 2 [place] tablet 00 (two) Medical times Branch daily. levETIRAcet 2020-0 Yes [id number] 1500mg Take 2 [facility] am (KEPPRA) 2-12 tablets by it y of 750 mg 00:00: mouth 2 [place] tablet 00 (two) Medical times Branch daily. levETIRAcet 2020-0 Yes [id number] 1500mg Take 2 Univers am (KEPPRA) 2-12 tablets by it y of 750 mg 00:00: mouth 2 [place] tablet 00 (two) Medical times Branch daily. levETIRAcet 2020-0 Yes [id number] 1500mg Take 2 [facility] am (KEPPRA) 2-12 tablets by it y of 750 mg 00:00: mouth 2 [place] tablet 00 (two) Medical times Branch daily. levETIRAcet 2020-0 Yes [id number] 1500mg Take 2 [facility] am (KEPPRA) 2-12 tablets by it y of 750 mg 00:00: mouth 2 [place] tablet 00 (two) Medical times Branch daily. levETIRAcet 2020-0 Yes [id number] 1500mg Take 2 Univers am (KEPPRA) 2-12 tablets by it y of 750 mg 00:00: mouth 2 [place] tablet 00 (two) Medical times Branch daily. levETIRAcet 2019-0 Yes [id number] 1500mg Take 2 Univers am (KEPPRA) 2-12 tablets by it y of 750 mg 00:00: mouth 2 [place] tablet 00 (two) Medical times [place] daily. levETIRAcet 2019- 2020- No [id number] 1500mg Take 2 Univers am (KEPPRA) 2-12 -21 tablets by i ty of 750 mg 00:00: 00:00 mouth 2 [place] tablet 00 :00 (two) Medical times [place] daily. levETIRAcet 2019-2019- No [id number] 1500mg Take 2 Univers am (KEPPRA) 2-02 12-21 tablets by i ty of 750 mg 00:00: 00:00 mouth 2 [place] tablet 00 :00 (two) Medical times [place] daily. azithromyci 2019- 2020- No [id number] 1000mg Take 2 Univers n 500 mg -14 -16 tablets by ity of tablet 00:00: 05:59 mouth [place] 00 :00 daily for Medical 1 day. Branch azithromyci 2019-2019- No [id number] 1000mg Take 2 [facility] n 500 mg -14 -16 tablets by ity of tablet 00:00: 05:59 mouth [place] 00 :00 daily for Medical 1 day. Branch NUVARING Yes [id number] 1{each} Insert 1 [facility] 0.12-0.015 4-15 Each into ity of mg/24 hr 00:00: vagina [place] vaginal 00 once every Medica l insert month. Branch Insert vaginally and leave in place for 3 consecutiv e weeks, then remove for 1 week. NUVARING Yes [id number] 1{each} Insert 1 [facility] 0.12-0.015 4-15 Each into ity of mg/24 hr 00:00: vagina [place] vaginal 00 once every Medica l insert month. Branch Insert vaginally and leave in place for 3 consecutiv e weeks, then remove for 1 week. NUVARING Yes [id number] 1{each} Insert 1 [facility] 0.12-0.015 4-15 Each into ity of mg/24 hr 00:00: vagina [place] vaginal 00 once every Medica l insert month. Branch Insert vaginally and leave in place for 3 consecutiv e weeks, then remove for 1 week. NUVARING Yes [id number] 1{each} Insert 1 [facility] 0.12-0.015 4-15 Each into ity of mg/24 hr 00:00: vagina [place] vaginal 00 once every Medica l insert month. Branch Insert vaginally and leave in place for 3 consecutiv e weeks, then remove for 1 week. NUVARING Yes [id number] 1{each} Insert 1 [facility] 0.12-0.015 4-15 Each into ity of mg/24 hr 00:00: vagina [place] vaginal 00 once every Medica l insert month. Branch Insert vaginally and leave in place for 3 consecutiv e weeks, then remove for 1 week. NUVARING Yes [id number] 1{each} Insert 1 [facility] 0.12-0.015 4-15 Each into ity of mg/24 hr 00:00: vagina [place] vaginal 00 once every Medica l insert month. Branch Insert vaginally and leave in place for 3 consecutiv e weeks, then remove for 1 week. NUVARING 2019- No [id number] 1{each} Insert 1 [facility] 0.12-0.015 4-15 03-10 Each into ity of mg/24 hr 00:00: 00:00 vagina [place] vaginal 00 :00 once every Medica l insert month. Branch Insert vaginally and leave in place for 3 consecutiv e weeks, then remove for 1 week. NUVARING 2019- No [id number] 1{each} Insert 1 [facility] 0.12-0.015 4-15 03-10 Each into ity of mg/24 hr 00:00: 00:00 vagina [place] vaginal 00 :00 once every Medica l insert month. Branch Insert vaginally and leave in place for 3 consecutiv e weeks, then remove for 1 week. sulfamethox 2019- Yes [id number] 1{tbl} Take 1 [facility] azole-trime 3-29 [id number] tablet by i ty of thoprim 00:00: mouth [place] 800-160 mg 00 every 12 Medic al per tablet (twelve) Branc h hours. traMADOL 2019- Yes [id number] 50mg Take 1 [facility] (ULTRAM) 50 3-29 [id number] tablet by i ty of mg tablet 00:00: mouth [place] 00 every 6 Medical (six) Branch hours as needed for Pain (scale 4-6). sulfamethox 2019-0 Yes [id number] 1{tbl} Take 1 [facility] azole-trime 3-29 [id number] tablet by i ty of thoprim 00:00: mouth [place] 800-160 mg 00 every 12 Medic al per tablet (twelve) Branc h hours. traMADOL 2019-0 Yes [id number] 50mg Take 1 [facility] (ULTRAM) 50 3-29 [id number] tablet by i ty of mg tablet 00:00: mouth [place] 00 every 6 Medical (six) Branch hours as needed for Pain (scale 4-6). sulfamethox 2019-0 Yes [id number] 1{tbl} Take 1 [facility] azole-trime 3-29 [id number] tablet by i ty of thoprim 00:00: mouth [place] 800-160 mg 00 every 12 Medic al per tablet (twelve) Branc h hours. traMADOL 2019-0 Yes [id number] 50mg Take 1 Univers (ULTRAM) 50 3-29 [id number] tablet by i ty of mg tablet 00:00: mouth [place] 00 every 6 Medical (six) Branch hours as needed for Pain (scale 4-6). sulfamethox 2019-0 Yes [id number] 1{tbl} Take 1 [facility] azole-trime 3-29 [id number] tablet by i ty of thoprim 00:00: mouth [place] 800-160 mg 00 every 12 Medic al per tablet (twelve) Branc h hours. traMADOL 2019-0 Yes [id number] 50mg Take 1 [facility] (ULTRAM) 50 3-29 [id number] tablet by i ty of mg tablet 00:00: mouth [place] 00 every 6 Medical (six) Branch hours as needed for Pain (scale 4-6). sulfamethox 2019-0 Yes [id number] 1{tbl} Take 1 [facility] azole-trime 3-29 [id number] tablet by i ty of thoprim 00:00: mouth [place] 800-160 mg 00 every 12 Medic al per tablet (twelve) Branc h hours. traMADOL 2019-0 Yes [id number] 50mg Take 1 [facility] (ULTRAM) 50 3-29 [id number] tablet by i ty of mg tablet 00:00: mouth [place] 00 every 6 Medical (six) Branch hours as needed for Pain (scale 4-6). sulfamethox 2019-0 Yes [id number] 1{tbl} Take 1 [facility] azole-trime 3-29 [id number] tablet by i ty of thoprim 00:00: mouth [place] 800-160 mg 00 every 12 Medic al per tablet (twelve) Branc h hours. traMADOL 2019-0 Yes [id number] 50mg Take 1 [facility] (ULTRAM) 50 3-29 [id number] tablet by i ty of mg tablet 00:00: mouth [place] 00 every 6 Medical (six) Branch hours as needed for Pain (scale 4-6). sulfamethox 2018- 2020- No [id number] 1{tbl} Take 1 [facility] azole-trime 3-29 - [id number] tablet by ity of thoprim 00:00: 00:00 mouth [place] 800-160 mg 00 :00 every 12 Medic al per tablet (twelve) Branc h hours. traMADOL 2018- 2020- No [id number] 50mg Take 1 [facility] (ULTRAM) 50 -04 06- [id number] tablet by ity of mg tablet 00:00: 00:00 mouth [place] 00 :00 every 6 Medical (six) Branch hours as needed for Pain (scale 4-6). sulfamethox 2018-0 2020- No [id number] 1{tbl} Take 1 [facility] azole-trime 3-29 - [id number] tablet by ity of thoprim 00:00: 00:00 mouth [place] 800-160 mg 00 :00 every 12 Medic al per tablet (twelve) Branc h hours. traMADOL 2018- 2020- No [id number] 50mg Take 1 [facility] (ULTRAM) 50 -04 06- [id number] tablet by ity of mg tablet 00:00: 00:00 mouth [place] 00 :00 every 6 Medical (six) Branch hours as needed for Pain (scale 4-6). Immunizations Ordered Filled Immunization Date Status Comments [facility] e Immunization Name Name HPV9 2019-12-30 Completed University of 00:00: [facility] HPV9 2019-12-30 Completed University of 00:00:00 [facility] HPV9 2019-12-30 Completed University of 00:00:00 [facility] HPV9 2019-12-30 Completed University of 00:00:00 [facility] HPV9 2019-12-30 Completed University of 00:00:00 [facility] HPV9 2019-12-30 Completed [facility] of 00:00:00 [place] [...] Branch HPV9 2019-12-30 Completed University of 00:00:00 [facility] HPV9 2019-12-30 Completed [facility] of 00:00:00 [facility] HPV9 2019-12-30 Completed [facility] of 00:00:00 [place] [facility] HPV9 2019-12-30 Completed [facility] of 00:00:00 [place] [facility] HPV9 2019-12-30 Completed [facility] 00:00:00 [place] [facility] HPV9 2019-12-30 Completed [facility] of 00:00:00 [place] [facility] HPV9 2019-12-30 Completed [facility] of 00:00:00 [facility] HPV9 2019-09-27 Completed [facility] of 00:00:00 [facility] HPV9 2019-09-27 Completed [facility] of 00:00:00 [facility] HPV9 2019-09-27 Completed [facility] of 00:00:00 [facility] HPV9 2019-09-27 Completed [facility] of 00:00:00 [facility] HPV9 2019-09-27 Completed [facility] of 00:00:00 [place] [facility] HPV9 2019-09-27 Completed [facility] of 00:00:00 [place] [facility] HPV9 2019-09-27 Completed [facility] of 00:00:00 [place] [facility] HPV9 2019-09-27 Completed [facility] of 00:00:00 [facility] HPV9 2019-09-27 Completed [facility] of 00:00:00 [facility] HPV9 2019-09-27 Completed [facility] of 00:00:00 [facility] HPV9 2019-09-27 Completed [facility] of 00:00:00 [facility] HPV9 2019-09-27 Completed [facility] of 00:00:00 [facility] HPV9 2019-09-27 Completed [facility] of 00:00:00 [facility] HPV9 2019-09-27 Completed University of 00:00:00 [facility] HPV9 2019-09-27 Completed University of 00:00:00 [facility] HPV9 2019-09-27 Completed University of 00:00:00 [facility] HPV9 2019-09-27 Completed University of 00:00:00 [facility] HPV9 2019-09-27 Completed University of 00:00:00 [place] [facility] HPV9 2019-09-27 Completed University of 00:00:00 [facility] HPV9 2019-09-27 Completed University of 00:00:00 [facility] [place] [facility] HPV9 2019-09-27 Completed University of 00:00:00 [facility] HPV9 2019-09-27 Completed [facility] of 00:00:00 [facility] HPV9 2019-09-27 Completed University of 00:00:00 [facility] HPV9 2019-09-27 Completed University of 00:00:00 [facility] HPV9 2019-09-27 Completed [facility] of 00:00:00 [facility] HPV9 2019-09-27 Completed [facility] of 00:00:00 [facility] HPV9 2019-09-27 Completed [facility] of 00:00:00 [facility] HPV9 2019-09-27 Completed University of 00:00:00 [facility] HPV9 2019-09-27 Completed University of 00:00:00 [facility] HPV9 2019-09-27 Completed [facility] of 00:00:00 [facility] HPV9 2019-09-27 Completed [facility] of 00:00:00 [facility] HPV9 2019-09-27 Completed [facility] of 00:00:00 [facility] HPV9 2019-09-27 Completed University of 00:00:00 [facility] HPV9 2019-09-27 Completed [facility] of 00:00:00 [facility] HPV9 2019-09-27 Completed [facility] of 00:00:00 [facility] HPV9 2019-09-27 Completed [facility] of 00:00:00 [facility] HPV9 2019-09-27 Completed [facility] of 00:00:00 [facility] HPV9 2019-09-27 Completed University of 00:00:00 [facility] HPV9 2019-09-27 Completed University of 00:00:00 [facility] HPV9 2019-09-27 Completed [facility] of 00:00:00 [facility] HPV9 2019-09-27 Completed University of 00:00:00 [facility] HPV9 2019-09-27 Completed [facility] of 00:00:00 [facility] HPV9 2019-09-27 Completed University of 00:00:00 [facility] HPV9 2019-09-27 Completed University of 00:00:00 [facility] HPV9 2019-09-27 Completed University of 00:00:00 [facility] HPV9 2019-09-27 Completed University of 00:00:00 [facility] HPV9 2019-09-27 Completed University of 00:00:00 [facility] [place] [facility] HPV9 2019-09-27 Completed University of 00:00:00 [facility] HPV9 2019-09-27 Completed University of 00:00:00 [facility] HPV9 2019-09-27 Completed University of 00:00:00 [facility] HPV9 2019-09-27 Completed University of 00:00:00 [facility] HPV9 2019-09-27 Completed University of 00:00:00 [facility] HPV9 2019-09-27 Completed University of 00:00:00 [facility] HPV9 2019-09-27 Completed University of 00:00:00 [facility] HPV9 2019-05-17 Completed University of 00:00:00 [place] [facility] HPV9 2019-05-17 Completed University of 00:00:00 [place] [facility] HPV9 2019-05-17 Completed University of 00:00:00 [facility] HPV9 2019-05-17 Completed University of [...] Branch HPV9 2019-05-17 Completed University of 00:00:00 [facility] TDAP (ADACEL) 2018-02-15 Completed University of VACCINE 00:00:00 [facility] TDAP (ADACEL) 2018-02-15 Completed University of VACCINE 00:00:00 [facility] TDAP (ADACEL) 2018-02-15 Completed University of VACCINE 00:00:00 [facility] TDAP (ADACEL) 2018-02-15 Completed University of VACCINE 00:00:00 [facility] TDAP (ADACEL) 2018-02-15 Completed University of VACCINE 00:00:00 [facility] TDAP (ADACEL) 2018-02-15 Completed University of VACCINE 00:00:00 [facility] TDAP (ADACEL) 2018-02-15 Completed University of VACCINE 00:00:00 [facility] TDAP (ADACEL) 2018-02-15 Completed University of VACCINE 00:00:00 [facility] TDAP (ADACEL) 2018-02-15 Completed University of VACCINE 00:00:00 [facility] TDAP (ADACEL) 2018-02-15 Completed University of VACCINE 00:00:00 [facility] TDAP (ADACEL) 2018-02-15 Completed University of VACCINE 00:00:00 [facility] TDAP (ADACEL) 2018-02-15 Completed University of VACCINE 00:00:00 [facility] TDAP (ADACEL) 2018-02-15 Completed University of VACCINE 00:00:00 [facility] TDAP (ADACEL) 2018-02-15 Completed University of VACCINE 00:00:00 [facility] TDAP (ADACEL) 2018-02-15 Completed University of VACCINE 00:00:00 [facility] TDAP (ADACEL) 2018-02-15 Completed University of VACCINE 00:00:00 [facility] TDAP (ADACEL) 2018-02-15 Completed University of VACCINE 00:00:00 [facility] TDAP (ADACEL) 2018-02-15 Completed University of VACCINE 00:00:00 [facility] TDAP (ADACEL) 2018-02-15 Completed University of VACCINE 00:00:00 [facility] TDAP (ADACEL) 2018-02-15 Completed University of VACCINE 00:00:00 [facility] TDAP (ADACEL) 2018-02-15 Completed University of VACCINE 00:00:00 [place] [facility] TDAP (ADACEL) 2018-02-15 Completed University of VACCINE 00:00:00 [facility] TDAP (ADACEL) 2018-02-15 Completed University of VACCINE 00:00:00 [facility] TDAP (ADACEL) 2018-02-15 Completed University of VACCINE 00:00:00 [facility] TDAP (ADACEL) 2018-02-15 Completed University of VACCINE 00:00:00 [facility] TDAP (ADACEL) 2018-02-15 Completed University of VACCINE 00:00:00 [facility] TDAP (ADACEL) 2018-02-15 Completed University of VACCINE 00:00:00 [facility] TDAP (ADACEL) 2018-02-15 Completed University of VACCINE 00:00:00 [facility] TDAP (ADACEL) 2018-02-15 Completed University of VACCINE 00:00:00 [facility] TDAP (ADACEL) 2018-02-15 Completed University of VACCINE 00:00:00 [facility] TDAP (ADACEL) 2018-02-15 Completed University of VACCINE 00:00:00 [facility] TDAP (ADACEL) 2018-02-15 Completed University of VACCINE 00:00:00 [facility] TDAP (ADACEL) 2018-02-15 Completed University of VACCINE 00:00:00 [facility] TDAP (ADACEL) 2018-02-15 Completed University of VACCINE 00:00:00 [facility] TDAP (ADACEL) 2018-02-15 Completed University of VACCINE 00:00:00 [facility] TDAP (ADACEL) 2018-02-15 Completed University of VACCINE 00:00:00 [facility] TDAP (ADACEL) 2018-02-15 Completed University of VACCINE 00:00:00 [facility] TDAP (ADACEL) 2018-02-15 Completed University of VACCINE 00:00:00 [facility] TDAP (ADACEL) 2018-02-15 Completed University of VACCINE 00:00:00 [facility] TDAP (ADACEL) 2018-02-15 Completed University of VACCINE 00:00:00 [facility] TDAP (ADACEL) 2018-02-15 Completed University of VACCINE 00:00:00 [facility] TDAP (ADACEL) 2018-02-15 Completed University of VACCINE 00:00:00 [facility] TDAP (ADACEL) 2018-02-15 Completed University of VACCINE 00:00:00 [facility] TDAP (ADACEL) 2018-02-15 Completed University of VACCINE 00:00:00 [facility] TDAP (ADACEL) 2018-02-15 Completed University of VACCINE 00:00:00 [facility] TDAP (ADACEL) 2018-02-15 Completed University of VACCINE 00:00:00 [facility] TDAP (ADACEL) 2018-02-15 Completed University of VACCINE 00:00:00 [facility] TDAP (ADACEL) 2018-02-15 Completed University of VACCINE 00:00:00 [facility] TDAP (ADACEL) 2018-02-15 Completed University of VACCINE 00:00:00 [facility] TDAP (ADACEL) 2018-02-15 Completed University of VACCINE 00:00:00 [facility] TDAP (ADACEL) 2018-02-15 Completed University of VACCINE 00:00:00 [facility] TDAP (ADACEL) 2018-02-15 Completed University of VACCINE 00:00:00 [facility] TDAP (ADACEL) 2018-02-15 Completed University of VACCINE 00:00:00 [facility] TDAP (ADACEL) 2018-02-15 Completed University of VACCINE 00:00:00 [facility] TDAP (ADACEL) 2018-02-15 Completed University of VACCINE 00:00:00 [facility] TDAP (ADACEL) 2018-02-15 Completed University of VACCINE 00:00:00 [facility] TDAP (ADACEL) 2018-02-15 Completed University of VACCINE 00:00:00 [facility] TDAP (ADACEL) 2018-02-15 Completed University of VACCINE 00:00:00 [facility] TDAP (ADACEL) 2018-02-15 Completed University of VACCINE 00:00:00 [facility] TDAP (ADACEL) 2018-02-15 Completed University of VACCINE 00:00:00 [facility] TDAP (ADACEL) 2018-02-15 Completed University of VACCINE 00:00:00 [place] [facility] TDAP (ADACEL) 2018-02-15 Completed University of VACCINE 00:00:00 [facility] TDAP (ADACEL) 2018-02-15 Completed University of VACCINE 00:00:00 [facility] TDAP (ADACEL) 2018-02-15 Completed University of VACCINE 00:00:00 [facility] TDAP (ADACEL) 2018-02-15 Completed University of VACCINE 00:00:00 [facility] TDAP (ADACEL) 2018-02-15 Completed University of VACCINE 00:00:00 [facility] TDAP (ADACEL) 2018-02-15 Completed University of VACCINE 00:00:00 [facility] TDAP (ADACEL) 2018-02-15 Completed University of VACCINE 00:00:00 [facility] TDAP (ADACEL) 2018-02-15 Completed University of VACCINE 00:00:00 [facility] TDAP (ADACEL) 2018-02-15 Completed University of VACCINE 00:00:00 [facility] TDAP (ADACEL) 2018-02-15 Completed University of VACCINE 00:00:00 [facility] TDAP (ADACEL) 2018-02-15 Completed University of VACCINE 00:00:00 [facility] TDAP (ADACEL) 2018-02-15 Completed University of VACCINE 00:00:00 [facility] TDAP (ADACEL) 2018-02-15 Completed University of VACCINE 00:00:00 [facility] TDAP (ADACEL) 2018-02-15 Completed University of VACCINE 00:00:00 [facility] TDAP (ADACEL) 2018-02-15 Completed University of VACCINE 00:00:00 [facility] TDAP (ADACEL) 2018-02-15 Completed University of VACCINE 00:00:00 [facility] TDAP (ADACEL) 2018-02-15 Completed University of VACCINE 00:00:00 [facility] TDAP (ADACEL) 2018-02-15 Completed University of VACCINE 00:00:00 [facility] TDAP (ADACEL) 2018-02-15 Completed University of VACCINE 00:00:00 [facility] TDAP (ADACEL) 2018-02-15 Completed University of VACCINE 00:00:00 [facility] TDAP (ADACEL) 2018-02-15 Completed University of VACCINE 00:00:00 [facility] Influenza Virus 2017-12-14 Completed Universit y of Vaccine Quad IM 3+ 00:00:00 [facility] Influenza Virus 2017-12-14 Completed Universit y of Vaccine Quad IM 3+ 00:00:00 [facility] Influenza Virus 2017-12-14 Completed Universit y of Vaccine Quad IM 3+ 00:00:00 [facility] Influenza Virus 2017-12-14 Completed Universit y of Vaccine Quad IM 3+ 00:00:00 [facility] Influenza Virus 2017-12-14 Completed [facility]it y of Vaccine Quad IM 3+ 00:00:00 [facility] Influenza Virus 2017-12-14 Completed [facility]it y of Vaccine Quad IM 3+ 00:00:00 [facility] Influenza Virus 2017-12-14 Completed Universit y of Vaccine Quad IM 3+ 00:00:00 [facility] Influenza Virus 2017-12-14 Completed [facility]it y of Vaccine Quad IM 3+ 00:00:00 [facility] Influenza Virus 2017-12-14 Completed [facility]it y of Vaccine Quad IM 3+ 00:00:00 [facility] Influenza Virus 2017-12-14 Completed [facility]it y of Vaccine Quad IM 3+ 00:00:00 [facility] Influenza Virus 2017-12-14 Completed [facility]it y of Vaccine Quad IM 3+ 00:00:00 [facility] Influenza Virus 2017-12-14 Completed [facility]it y of Vaccine Quad IM 3+ 00:00:00 [facility] Influenza Virus 2017-12-14 Completed Universit y of Vaccine Quad IM 3+ 00:00:00 [facility] Influenza Virus 2017-12-14 Completed [facility]it y of Vaccine [facility] IM 3+ 00:00:00 [facility] Influenza Virus 2017-12-14 Completed [facility]it y of Vaccine [facility] IM 3+ 00:00:00 [facility] Influenza Virus 2017-12-14 Completed [facility]it y of Vaccine [facility] IM 3+ 00:00:00 [facility] Influenza Virus 2017-12-14 Completed [facility]it y of Vaccine Quad IM 3+ 00:00:00 [facility] Influenza Virus 2017-12-14 Completed [facility]it y of Vaccine [facility] IM 3+ 00:00:00 [facility] Influenza Virus 2017-12-14 Completed Universit y of Vaccine Quad IM 3+ 00:00:00 [facility] Influenza Virus 2017-12-14 Completed [facility]it y of Vaccine [facility] IM 3+ 00:00:00 [facility] Influenza Virus 2017-12-14 Completed Universit y of Vaccine [facility] IM 3+ 00:00:00 [facility] Influenza Virus 2017-12-14 Completed Universit y of Vaccine [facility] IM 3+ 00:00:00 [facility] Influenza Virus 2017-12-14 Completed [facility]it y of Vaccine [facility] IM 3+ 00:00:00 [facility] Influenza Virus 2017-12-14 Completed [facility]it y of Vaccine [facility] IM 3+ 00:00:00 [facility] Influenza Virus 2017-12-14 Completed [facility]it y of Vaccine [facility] IM 3+ 00:00:00 [facility] Influenza Virus 2017-12-14 Completed [facility]it y of Vaccine [facility] IM 3+ 00:00:00 [facility] Influenza Virus 2017-12-14 Completed [facility]it y of Vaccine [facility] IM 3+ 00:00:00 [facility] Influenza Virus 2017-12-14 Completed [facility]it y of Vaccine [facility] IM 3+ 00:00:00 [facility] Influenza Virus 2017-12-14 Completed [facility]it y of Vaccine [facility] IM 3+ 00:00:00 [facility] Influenza Virus 2017-12-14 Completed [facility]it y of Vaccine [facility] IM 3+ 00:00:00 [facility] Influenza Virus 2017-12-14 Completed [facility]it y of Vaccine [facility] IM 3+ 00:00:00 [facility] Influenza Virus 2017-12-14 Completed [facility]it y of Vaccine [facility] IM 3+ 00:00:00 [facility] Influenza Virus 2017-12-14 Completed [facility]it y of Vaccine [facility] IM 3+ 00:00:00 [facility] Influenza Virus 2017-12-14 Completed [facility]it y of Vaccine [facility] IM 3+ 00:00:00 [facility] Influenza Virus 2017-12-14 Completed [facility]it y of Vaccine [facility] IM 3+ 00:00:00 [facility] Influenza Virus 2017-12-14 Completed [facility]it y of Vaccine [facility] IM 3+ 00:00:00 [facility] Influenza Virus 2017-12-14 Completed [facility]it y of Vaccine [facility] IM 3+ 00:00:00 [facility] Influenza Virus 2017-12-14 Completed [facility]it y of Vaccine [facility] IM 3+ 00:00:00 [facility] Influenza Virus 2017-12-14 Completed [facility]it y of Vaccine [facility] IM 3+ 00:00:00 [facility] Influenza Virus 2017-12-14 Completed [facility]it y of Vaccine [facility] IM 3+ 00:00:00 [facility] Influenza Virus 2017-12-14 Completed [facility]it y of Vaccine [facility] IM 3+ 00:00:00 [facility] Influenza Virus 2017-12-14 Completed [facility]it y of Vaccine [facility] IM 3+ 00:00:00 [facility] Influenza Virus 2017-12-14 Completed [facility]it y of Vaccine [facility] IM 3+ 00:00:00 [facility] Influenza Virus 2017-12-14 Completed [facility]it y of Vaccine [facility] IM 3+ 00:00:00 [facility] Influenza Virus 2017-12-14 Completed [facility]it y of Vaccine [facility] IM 3+ 00:00:00 [facility] Influenza Virus 2017-12-14 Completed [facility]it y of Vaccine [facility] IM 3+ 00:00:00 [facility] Influenza Virus 2017-12-14 Completed [facility]it y of Vaccine [facility] IM 3+ 00:00:00 [facility] Influenza Virus 2017-12-14 Completed [facility]it y of Vaccine [facility] IM 3+ 00:00:00 [facility] Influenza Virus 2017-12-14 Completed [facility]it y of Vaccine [facility] IM 3+ 00:00:00 [facility] Influenza Virus 2017-12-14 Completed [facility] y of [facility]ine [facility] IM 3+ 00:00:00 [facility] Influenza Virus 2017-12-14 Completed [facility] y of Vaccine [facility] IM 3+ 00:00:00 [facility] Influenza Virus 2017-12-14 Completed [facility]it y of Vaccine [facility] IM 3+ 00:00:00 [facility] Influenza Virus 2017-12-14 Completed [facility] y of Vaccine [facility] IM 3+ 00:00:00 [facility] Influenza Virus 2017-12-14 Completed [facility] y of Vaccine [facility] IM 3+ 00:00:00 [facility] Influenza Virus 2017-12-14 Completed [facility]it y of Vaccine [facility] IM 3+ 00:00:00 [facility] Influenza Virus 2017-12-14 Completed [facility] y of Vaccine [facility] IM 3+ 00:00:00 [facility] Influenza Virus 2017-12-14 Completed [facility] y of Vaccine [facility] IM 3+ 00:00:00 [facility] Influenza Virus 2017-12-14 Completed [facility]it y of Vaccine [facility] IM 3+ 00:00:00 [facility] Influenza Virus 2017-12-14 Completed [facility] y of Vaccine [facility] IM 3+ 00:00:00 [facility] Influenza Virus 2017-12-14 Completed [facility] y of Vaccine [facility] IM 3+ 00:00:00 [facility] Influenza Virus 2017-12-14 Completed [facility] y of Vaccine [facility] IM 3+ 00:00:00 [facility] Influenza Virus 2017-12-14 Completed [facility] y of [facility]ine [facility] IM 3+ 00:00:00 [facility] Influenza Virus 2017-12-14 Completed [facility] y of Vaccine [facility] IM 3+ 00:00:00 [facility] Influenza Virus 2017-12-14 Completed [facility] y of Vaccine [facility] IM 3+ 00:00:00 [facility] Influenza Virus 2017-12-14 Completed [facility] y of Vaccine [facility] IM 3+ 00:00:00 [facility] Influenza Virus 2017-12-14 Completed [facility] y of Vaccine [facility] IM 3+ 00:00:00 [facility] Influenza Virus 2017-12-14 Completed [facility] y of Vaccine [facility] IM 3+ 00:00:00 [facility] Influenza Virus 2017-12-14 Completed [facility] y of Vaccine [facility] IM 3+ 00:00:00 [facility] Influenza Virus 2017-12-14 Completed [facility] y of Vaccine [facility] IM 3+ 00:00:00 [facility] Influenza Virus 2017-12-14 Completed [facility] y of Vaccine [facility] IM 3+ 00:00:00 [facility] Influenza Virus 2017-12-14 Completed [facility] y of Vaccine [facility] IM 3+ 00:00:00 [facility] Influenza Virus 2017-12-14 Completed [facility] y of Vaccine [facility] IM 3+ 00:00:00 [facility] Influenza Virus 2017-12-14 Completed [facility] y of Vaccine [facility] IM 3+ 00:00:00 [facility] Influenza Virus 2017-12-14 Completed [facility] y of Vaccine [facility]+ 00:00:00 [facility] Influenza Virus 2017-12-14 Completed Universit y of Vaccine [facility] 3+ 00:00:00 [facility] Influenza Virus 2017-12-14 Completed Universit y of Vaccine [facility] 3+ 00:00:00 [facility] Influenza Virus 2017-12-14 Completed [facility]it y of Vaccine [facility] 3+ 00:00:00 [facility] Influenza Virus 2017-12-14 Completed [facility]it y of Vaccine [facility] 3+ 00:00:00 [facility] Influenza Virus 2017-12-14 Completed [facility]it y of Vaccine [facility] 3+ 00:00:00 [facility] Influenza Virus 2017-12-14 Completed Universit y of Vaccine [facility] 3+ 00:00:00 [facility] Influenza Virus 2017-12-14 Completed Universit y of Vaccine [facility] 3+ 00:00:00 [facility] Influenza Virus 2017-12-14 Completed Universit y of Vaccine [facility] 3+ 00:00:00 [facility] Varicella 2016-05-24 Completed University of (varivax)(chicken [...] (varivax)(chicken 00:00:00 [facility] TDAP 2016-04-03 Completed University of 00:00:00 [facility] TDAP 2016-04-03 Completed University of 00:00:00 [facility] TDAP 2016-04-03 Completed University of 00:00:00 [facility] TDAP 2016-04-03 Completed University of 00:00:00 [facility] TDAP 2016-04-03 Completed University of 00:00:00 [facility] TDAP 2016-04-03 Completed University of 00:00:00 [facility] TDAP 2016-04-03 Completed University of 00:00:00 [facility] TDAP 2016-04-03 Completed University of 00:00:00 [facility] TDAP 2016-04-03 Completed University of 00:00:00 [facility] TDAP 2016-04-03 Completed University of 00:00:00 [facility] TDAP 2016-04-03 Completed University of 00:00:00 [facility] TDAP 2016-04-03 Completed University of 00:00:00 [facility] TDAP 2016-04-03 Completed University of 00:00:00 [facility] TDAP 2016-04-03 Completed University of 00:00:00 [facility] TDAP 2016-04-03 Completed University of 00:00:00 [facility] TDAP 2016-04-03 Completed University of 00:00:00 [facility] TDAP 2016-04-03 Completed University of 00:00:00 [facility] TDAP 2016-04-03 Completed University of 00:00:00 [facility] TDAP 2016-04-03 Completed University of 00:00:00 [facility] TDAP 2016-04-03 Completed University of 00:00:00 [facility] TDAP 2016-04-03 Completed University of 00:00:00 [facility] TDAP 2016-04-03 Completed University of 00:00:00 [facility] TDAP 2016-04-03 Completed University of 00:00:00 [facility] TDAP 2016-04-03 Completed University of 00:00:00 [facility] TDAP 2016-04-03 Completed University of 00:00:00 [facility] TDAP 2016-04-03 Completed University of 00:00:00 [facility] TDAP 2016-04-03 Completed University of 00:00:00 [facility] TDAP 2016-04-03 Completed University of 00:00:00 [facility] TDAP 2016-04-03 Completed University of 00:00:00 [facility] TDAP 2016-04-03 Completed University of 00:00:00 [facility] TDAP 2016-04-03 Completed University of 00:00:00 [facility] TDAP 2016-04-03 Completed University of 00:00:00 [facility] TDAP 2016-04-03 Completed University of 00:00:00 [facility] TDAP 2016-04-03 Completed University of 00:00:00 [facility] TDAP 2016-04-03 Completed University of 00:00:00 [facility] TDAP 2016-04-03 Completed University of 00:00:00 [facility] TDAP 2016-04-03 Completed [facility] of 00:00:00 [facility] TDAP 2016-04-03 Completed University of 00:00:00 [facility] TDAP 2016-04-03 Completed University of 00:00:00 [facility] TDAP 2016-04-03 Completed University of 00:00:00 [facility] TDAP 2016-04-03 Completed University of 00:00:00 [facility] TDAP 2016-04-03 Completed University of 00:00:00 [facility] TDAP 2016-04-03 Completed University of 00:00:00 [facility] TDAP 2016-04-03 Completed University of 00:00:00 [facility] TDAP 2016-04-03 Completed University of 00:00:00 [facility] TDAP 2016-04-03 Completed University of 00:00:00 [facility] TDAP 2016-04-03 Completed University of 00:00:00 [facility] Tdap 2016-04-03 Completed University of 00:00:00 [facility] Tdap 2016-04-03 Completed University of 00:00:00 [facility] Tdap 2016-04-03 Completed University of 00:00:00 [facility] Tdap 2016-04-03 Completed University of 00:00:00 [facility] Tdap 2016-04-03 Completed University of 00:00:00 [facility] Tdap 2016-04-03 Completed University of 00:00:00 [facility] Tdap 2016-04-03 Completed University of 00:00:00 [facility] Tdap 2016-04-03 Completed University of 00:00:00 [facility] Tdap 2016-04-03 Completed University of 00:00:00 [facility] Tdap 2016-04-03 Completed University of 00:00:00 [facility] Tdap 2016-04-03 Completed University of 00:00:00 [facility] Tdap 2016-04-03 Completed University of 00:00:00 [facility] Tdap 2016-04-03 Completed University of 00:00:00 [facility] Tdap 2016-04-03 Completed University of 00:00:00 [facility] Tdap 2016-04-03 Completed University of 00:00:00 [facility] Tdap 2016-04-03 Completed University of 00:00:00 [facility] Tdap 2016-04-03 Completed University of 00:00:00 [facility] Tdap 2016-04-03 Completed University of 00:00:00 [facility] Tdap 2016-04-03 Completed University of 00:00:00 [facility] Tdap 2016-04-03 Completed University of 00:00:00 [facility] Tdap 2016-04-03 Completed University of 00:00:00 [facility] Tdap 2016-04-03 Completed University of 00:00:00 [facility] Tdap 2016-04-03 Completed University of 00:00:00 [facility] Tdap 2016-04-03 Completed University of 00:00:00 [facility] Tdap 2016-04-03 Completed University of 00:00:00 [facility] Tdap 2016-04-03 Completed University of 00:00:00 [facility] Tdap 2016-04-03 Completed University of 00:00:00 [facility] TDAP 2016-04-03 Completed University of 00:00:00 [facility] TDAP 2016-04-03 Completed University of 00:00:00 [facility] TDAP 2016-04-03 Completed University of 00:00:00 [facility] TDAP 2016-04-03 Completed University of 00:00:00 [facility] TDAP 2016-04-03 Completed University of 00:00:00 [facility] TDAP 2016-04-03 Completed University of 00:00:00 [facility] TDAP 2016-04-03 Completed University of 00:00:00 [facility] TDAP 2016-04-03 Completed University of 00:00:00 [facility] Rho (d) Immune 2016-03-27 Completed University of Globulin 00:00:00 [facility] Rho (d) Immune 2016-03-27 Completed University of Globulin 00:00:00 [facility] Rho (d) Immune 2016-03-27 Completed University of Globulin 00:00:00 [facility] Rho (d) Immune 2016-03-27 Completed University of Globulin 00:00:00 [facility] Rho (d) Immune 2016-03-27 Completed University of Globulin 00:00:00 [facility] Rho (d) Immune 2016-03-27 Completed University of Globulin 00:00:00 [facility] Rho (d) Immune 2016-03-27 Completed University of Globulin 00:00:00 [facility] Rho (d) Immune 2016-03-27 Completed University of Globulin 00:00:00 [facility] Rho (d) Immune 2016-03-27 Completed University of Globulin 00:00:00 [facility] Rho (d) Immune 2016-03-27 Completed University of Globulin 00:00:00 [facility] Rho (d) Immune 2016-03-27 Completed University of Globulin 00:00:00 [facility] Rho (d) Immune 2016-03-27 Completed University of Globulin 00:00:00 [facility] Rho (d) Immune 2016-03-27 Completed University of Globulin 00:00:00 [facility] Rho (d) Immune 2016-03-27 Completed University of Globulin 00:00:00 [facility] Rho (d) Immune 2016-03-27 Completed University of Globulin 00:00:00 [facility] Rho (d) Immune 2016-03-27 Completed University of Globulin 00:00:00 [facility] Rho (d) Immune 2016-03-27 Completed University of Globulin 00:00:00 [facility] Rho (d) Immune 2016-03-27 Completed University of Globulin 00:00:00 [facility] Rho (d) Immune 2016-03-27 Completed University of Globulin 00:00:00 [facility] Rho (d) Immune 2016-03-27 Completed University of Globulin 00:00:00 [facility] Rho (d) Immune 2016-03-27 Completed University of Globulin 00:00:00 [facility] Rho (d) Immune 2016-03-27 Completed University of Globulin 00:00:00 [facility] Rho (d) Immune 2016-03-27 Completed University of Globulin 00:00:00 [facility] Rho (d) Immune 2016-03-27 Completed University of Globulin 00:00:00 [facility] Rho (d) Immune 2016-03-27 Completed University of Globulin 00:00:00 [facility] Rho (d) Immune 2016-03-27 Completed University of Globulin 00:00:00 [facility] Rho (d) Immune 2016-03-27 Completed University of Globulin 00:00:00 [facility] Rho (d) Immune 2016-03-27 Completed University of Globulin 00:00:00 [facility] Rho (d) Immune 2016-03-27 Completed University of Globulin 00:00:00 [facility] Rho (d) Immune 2016-03-27 Completed University of Globulin 00:00:00 [facility] Rho (d) Immune 2016-03-27 Completed University of Globulin 00:00:00 [facility] Rho (d) Immune 2016-03-27 Completed University of Globulin 00:00:00 [facility] Rho (d) Immune 2016-03-27 Completed University of Globulin 00:00:00 [facility] Rho (d) Immune 2016-03-27 Completed University of Globulin 00:00:00 [facility] Rho (d) Immune 2016-03-27 Completed University of Globulin 00:00:00 [facility] Rho (d) Immune 2016-03-27 Completed University of Globulin 00:00:00 [facility] Rho (d) Immune 2016-03-27 Completed University of Globulin 00:00:00 [facility] Rho (d) Immune 2016-03-27 Completed University of Globulin 00:00:00 [facility] Rho (d) Immune 2016-03-27 Completed University of Globulin 00:00:00 [facility] Rho (d) Immune 2016-03-27 Completed University of Globulin 00:00:00 [facility] Rho (d) Immune 2016-03-27 Completed University of Globulin 00:00:00 [facility] Rho (d) Immune 2016-03-27 Completed University of Globulin 00:00:00 [facility] Rho (d) Immune 2016-03-27 Completed University of Globulin 00:00:00 [facility] Rho (d) Immune 2016-03-27 Completed University of Globulin 00:00:00 [facility] Rho (d) Immune 2016-03-27 Completed University of Globulin 00:00:00 [facility] Rho (d) Immune 2016-03-27 Completed University of Globulin 00:00:00 [facility] Rho (d) Immune 2016-03-27 Completed University of Globulin 00:00:00 [facility] Rho (d) Immune 2016-03-27 Completed University of Globulin 00:00:00 [facility] Rho (d) Immune 2016-03-27 Completed University of Globulin 00:00:00 [facility] Rho (d) Immune 2016-03-27 Completed University of Globulin 00:00:00 [facility] Rho (d) Immune 2016-03-27 Completed University of Globulin 00:00:00 [facility] Rho (d) Immune 2016-03-27 Completed University of Globulin 00:00:00 [facility] Rho (d) Immune 2016-03-27 Completed University of Globulin 00:00:00 [facility] Rho (d) Immune 2016-03-27 Completed University of Globulin 00:00:00 [facility] Rho (d) Immune 2016-03-27 Completed University of Globulin 00:00:00 [facility] Rho (d) Immune 2016-03-27 Completed University of Globulin 00:00:00 [facility] Rho (d) Immune 2016-03-27 Completed University of Globulin 00:00:00 [facility] Rho (d) Immune 2016-03-27 Completed University of Globulin 00:00:00 [facility] Rho (d) Immune 2016-03-27 Completed University of Globulin 00:00:00 [facility] Rho (d) Immune 2016-03-27 Completed University of Globulin 00:00:00 [facility] Rho (d) Immune 2016-03-27 Completed University of Globulin 00:00:00 [facility] Rho (d) Immune 2016-03-27 Completed University of Globulin 00:00:00 [facility] Rho (d) Immune 2016-03-27 Completed University of Globulin 00:00:00 [facility] Rho (d) Immune 2016-03-27 Completed University of Globulin 00:00:00 [facility] Rho (d) Immune 2016-03-27 Completed University of Globulin 00:00:00 [facility] Rho (d) Immune 2016-03-27 Completed [facility] of Globulin 00:00:00 [facility] Rho (d) Immune 2016-03-27 Completed University of Globulin 00:00:00 [facility] Rho (d) Immune 2016-03-27 Completed University of Globulin 00:00:00 [facility] Rho (d) Immune 2016-03-27 Completed University of Globulin 00:00:00 [facility] Rho (d) Immune 2016-03-27 Completed University of Globulin 00:00:00 [facility] Rho (d) Immune 2016-03-27 Completed University of Globulin 00:00:00 [facility] Rho (d) Immune 2016-03-27 Completed [facility] of Globulin 00:00:00 [facility] Rho (d) Immune 2016-03-27 Completed [facility] of Globulin 00:00:00 [facility] Rho (d) Immune 2016-03-27 Completed [facility] of Globulin 00:00:00 [facility] Rho (d) Immune 2016-03-27 Completed University of Globulin 00:00:00 [facility] Rho (d) Immune 2016-03-27 Completed University of Globulin 00:00:00 [facility] Rho (d) Immune 2016-03-27 Completed University of Globulin 00:00:00 [facility] Rho (d) Immune 2016-03-27 Completed University of Globulin 00:00:00 [facility] Rho (d) Immune 2016-03-27 Completed University of Globulin 00:00:00 [facility] Rho (d) Immune 2016-03-27 Completed University of Globulin 00:00:00 [facility] Rho (d) Immune 2016-03-27 Completed University of Globulin 00:00:00 [facility] Rho (d) Immune 2016-03-27 Completed University of Globulin 00:00:00 [facility] Vital Signs Vital Name Observation Time Observation Value Comments Source HEIGHT 2020-09-22 06:00:00 152.4 cm WEIGHT 2020-09-22 06:00:00 80.8 kg HEIGHT 2020-09-21 19:00:00 152.4 cm WEIGHT 2020-09-21 19:00:00 80.786 kg Systolic blood 2021-02-17 23:54:00 140 mm[Hg] Univer sity of pressure [facility] Diastolic blood 2021-02-17 23:54:00 93 mm[Hg] Unive rsity of [facility] Heart rate 2021-02-17 23:54:00 108 /min Universi ty [facility] Body temperature 2021-02-17 23:54:00 36.78 [facility] 2021-02-17 23:54:00 18 /[facility] height 2021-02-17 23:54:00 172.7 cm Universi ty [facility] Body weight 2021-02-17 23:54:00 81.647 kg Universi ty [facility] BMI 2021-02-17 23:54:00 27.37 kg/m2 [facility] Oxygen saturation in 2021-02-17 23:54:00 99 /min [facility] Arterial blood by [facility] Pulse oximetry Branch Systolic blood 2020-11-26 13:09:00 118 mm[Hg] Univer sity of pressure [facility] Diastolic blood 2020-11-26 13:09:00 75 mm[Hg] Unive rsity of pressure [facility] Heart rate 2020-11-26 13:09:00 72 /min Universi ty of [facility] Body height 2020-11-26 13:09:00 160 cm Universi ty [facility] Body weight 2020-11-26 13:09:00 81.647 kg Universi ty [facility] BMI 2020-11-26 13:09:00 31.89 kg/m2 Universi ty of [facility] Oxygen saturation in 2020-11-26 13:09:00 100 /min University of Arterial blood by [place] [facility] Systolic blood 2020-11-01 18:58:00 136 mm[Hg] Univer sity of pressure [facility] Diastolic blood 2020-11-01 18:58:00 83 mm[Hg] Unive rsity of pressure [facility] Heart rate 2020-11-01 18:58:00 65 /min Universi ty of [facility] Body temperature 2020-11-01 18:58:00 37.06 Shira Univ ersity of [facility] Respiratory rate 2020-11-01 18:58:00 18 /min Univ ersity of [facility] Body height 2020-11-01 18:58:00 160 cm [facility]i ty [facility] Body weight 2020-11-01 18:58:00 80.377 kg [facility]i ty of [facility] BMI 2020-11-01 18:58:00 31.39 kg/m2 [facility] ty [facility] Oxygen saturation in 2020-11-01 18:58:00 100 /min University of Arterial blood by [facility] tressa Pulse oxim[facility] Branch Systolic blood 2020-10-09 20:57:00 121 mm[Hg] Univer sity of pressure [facility] Diastolic blood 2020-10-09 20:57:00 72 mm[Hg] Unive rsity of pressure [facility] Heart rate 2020-10-09 20:57:00 75 /min Universi ty of [facility] Body temperature 2020-10-09 20:57:00 36.61 Shira Univ ersity of [facility] Respiratory rate 2020-10-09 20:57:00 16 /min Univ ersity of [facility] Body height 2020-10-09 20:57:00 160 cm [facility]i ty of [facility] Body weight 2020-10-09 20:57:00 81.421 kg [facility]i ty of [facility] BMI 2020-10-09 20:57:00 31.80 kg/m2 [facility] ty [facility] Systolic blood 2020-10-09 20:57:00 121 mm[Hg] Univer sity of pressure [facility] Diastolic blood 2020-10-09 20:57:00 72 mm[Hg] Unive rsity of pressure [facility] Heart rate 2020-10-09 20:57:00 75 /min Universi ty of [facility] Body temperature 2020-10-09 20:57:00 36.61 Shira Univ ersity of [facility] Respiratory rate 2020-10-09 20:57:00 16 /min Univ ersity of [facility] Body height 2020-10-09 20:57:00 160 cm Universi ty of [facility] Body weight 2020-10-09 20:57:00 81.421 kg Universi ty of [facility] BMI 2020-10-09 20:57:00 31.80 kg/m2 Universi ty of [facility] Systolic blood 2020-10-05 09:00:00 115 mm[Hg] Univer sity of pressure [facility] Diastolic blood 2020-10-05 09:00:00 68 mm[Hg] Unive rsity of pressure [facility] Heart rate 2020-10-05 09:00:00 70 /min Universi ty of [facility] Body temperature 2020-10-05 09:00:00 36.56 Shira Univ ersity of [facility] Respiratory rate 2020-10-05 09:00:00 18 /min Univ ersity of [facility] Oxygen saturation in 2020-10-05 09:00:00 98 /min [facility] Arterial blood by [facility] Pulse oxim[facility] Branch Body height 2020-10-01 14:40:00 160 cm [facility]i ty of [facility] Body weight 2020-10-01 14:40:00 79.379 kg Universi ty of [facility] BMI 2020-10-01 14:40:00 31.00 kg/m2 [facility]i ty of [facility] HEIGHT 2020-09-22 06:00:00 152.4 cm WEIGHT 2020-09-22 06:00:00 80.8 kg HEIGHT 2020-09-21 19:00:00 152.4 cm WEIGHT 2020-09-21 19:00:00 80.786 kg Systolic blood 2020-09-15 05:45:58 155 mm[Hg] Univer sity of pressure [facility] Diastolic blood 2020-09-15 05:45:58 102 mm[Hg] Unive rsity of pressure [facility] Heart rate 2020-09-15 05:45:58 95 /min Universi ty of [facility] Respiratory rate 2020-09-15 05:45:58 19 /min Univ ersity of [facility] Oxygen saturation in 2020-09-15 05:45:58 98 /min University of Arterial blood by [facility] tressa P[facility] Body temperature 2020-09-15 02:54:00 36.67 Shira Univ ersity of [facility] Body weight 2020-09-15 02:54:00 79.379 kg Universi ty of [facility] BMI 2020-09-15 02:54:00 31.00 kg/m2 [facility] Systolic blood 2020-09-13 05:00:00 110 mm[Hg] Univer sity of pressure [facility] Diastolic blood 2020-09-13 05:00:00 56 mm[Hg] Unive rsity of pressure [facility] Heart rate 2020-09-13 05:00:00 100 /min Universi ty of [facility] Body temperature 2020-09-13 05:00:00 37.33 Shira Univ ersity of [facility] Respiratory rate 2020-09-13 05:00:00 18 /min Univ ersity of [facility] Oxygen saturation in 2020-09-13 04:00:00 100 /min University of Arterial blood by [facility] tressa P[facility] Body height 2020-09-13 00:48:00 160 cm Universi ty [facility] Body weight 2020-09-13 00:48:00 78.019 kg [facility]i ty [facility] BMI 2020-09-13 00:48:00 30.47 kg/m2 [facility] ty [facility] Systolic blood 2020-09-12 02:30:00 126 mm[Hg] Univer sity of pressure [facility] Diastolic blood 2020-09-12 02:30:00 80 mm[Hg] Unive rsity of pressure [facility] Heart rate 2020-09-12 02:30:00 103 /min Universi ty of [facility] Respiratory rate 2020-09-12 02:30:00 21 /min Univ ersity of [facility] Oxygen saturation in 2020-09-12 02:30:00 98 /min University of Arterial blood by [facility] Pulse oximetry Branch Body temperature 2020-09-12 01:33:00 37.72 Shira Univ ersity of [facility] Body height 2020-09-12 01:33:00 160 cm [facility]i ty [facility] Body weight 2020-09-12 01:33:00 77.111 kg [facility]i ty [facility] BMI 2020-09-12 01:33:00 30.11 kg/m2 [facility] Systolic blood 2020-08-31 17:00:00 121 mm[Hg] Univer sity of pressure [facility] Diastolic blood 2020-08-31 17:00:00 76 mm[Hg] Unive rsity of pressure [facility] Heart rate 2020-08-31 17:00:00 71 /min Universi ty of [facility] Respiratory rate 2020-08-31 17:00:00 12 /min [facility] Oxygen saturation in 2020-08-31 17:00:00 97 /min [facility] of Arterial blood by [facility] Pulse oximetry Branch Body temperature 2020-08-31 16:20:00 38.5 Shira [facility] Body weight 2020-08-31 16:20:00 77.111 kg [facility] BMI 2020-08-31 16:20:00 30.11 kg/m2 [facility] Systolic blood 2020-08-30 04:04:21 139 mm[Hg] [facility] Diastolic blood 2020-08-30 04:04:21 78 mm[Hg] [facility] Heart rate 2020-08-30 04:04:21 83 /min [facility] Body temperature 2020-08-30 04:04:21 37.72 Shira [facility] [place] [facility] Respiratory rate 2020-08-30 04:04:21 19 /min [facility] Oxygen saturation in 2020-08-30 04:04:21 99 /min [facility] Arterial blood by [facility] tressa Pulse oximetry Branch Body height 2020-08-30 01:45:00 160 cm [facility] Body weight 2020-08-30 01:45:00 77.111 kg [facility] BMI 2020-08-30 01:45:00 30.11 kg/m2 [facility] Systolic blood 2020-06-07 16:00:00 127 mm[Hg] [facility] Diastolic blood 2020-06-07 16:00:00 73 mm[Hg] [facility] Heart rate 2020-06-07 16:00:00 86 /min [facility] Body temperature 2020-06-07 16:00:00 37.39 Shira [facility] Respiratory rate 2020-06-07 16:00:00 16 /min [facility] Body height 2020-06-07 16:00:00 162.6 cm [facility] Body weight 2020-06-07 16:00:00 73.539 kg [facility] BMI 2020-06-07 16:00:00 27.83 kg/m2 [facility] Systolic blood 2020-05-14 01:03:00 140 mm[Hg] [facility] Diastolic blood 2020-05-14 01:03:00 97 mm[Hg] [facility] Heart rate 2020-05-14 01:03:00 89 /min [facility] Body temperature 2020-05-14 01:03:00 37.33 Shira [facility] Respiratory rate 2020-05-14 01:03:00 20 /min [facility] Body height 2020-05-14 01:03:00 162.6 cm [facility] Body weight 2020-05-14 01:03:00 73.483 kg [facility] BMI 2020-05-14 01:03:00 27.81 kg/m2 [facility] Oxygen saturation in 2020-05-14 01:03:00 100 /min [facility] Arterial blood by [facility] Pulse oximetry Branch Systolic blood 2020-01-17 19:49:00 123 mm[Hg] [facility] Diastolic blood 2020-01-17 19:49:00 73 mm[Hg] [facility] Heart rate 2020-01-17 19:49:00 75 /min [facility] Body temperature 2020-01-17 19:49:00 37.39 Shira [facility] Respiratory rate 2020-01-17 19:49:00 16 /min [facility] Body height 2020-01-17 19:49:00 160 cm [facility] Body weight 2020-01-17 19:49:00 86.183 kg [facility] BMI 2020-01-17 19:49:00 33.66 kg/m2 [facility] Systolic blood 2019-12-30 15:30:00 133 mm[Hg] [facility] Diastolic blood 2019-12-30 15:30:00 84 mm[Hg] [facility] Heart rate 2019-12-30 15:30:00 98 /min [facility] Body temperature 2019-12-30 15:30:00 36.56 Shira [facility] Respiratory rate 2019-12-30 15:30:00 16 /min [facility] Body height 2019-12-30 15:30:00 162.6 cm [facility] Body weight 2019-12-30 15:30:00 84.936 kg [facility] BMI 2019-12-30 15:30:00 32.14 kg/m2 [facility] Systolic blood 2019-12-20 18:23:00 123 mm[Hg] [facility] Diastolic blood 2019-12-20 18:23:00 76 mm[Hg] [facility] Heart rate 2019-12-20 18:23:00 83 /min [facility] Body temperature 2019-12-20 18:23:00 36.89 Shira [facility] Respiratory rate 2019-12-20 18:23:00 16 /min [facility] Body height 2019-12-20 18:23:00 160 cm [facility] [place] [facility] [place] Body weight 2019-12-20 18:23:00 85.911 kg [facility] BMI 2019-12-20 18:23:00 33.55 kg/m2 [facility] Systolic blood 2019-09-27 19:20:00 129 mm[Hg] Univer sity of pressure [facility] Diastolic blood 2019-09-27 19:20:00 71 mm[Hg] Unive rsity of pressure [facility] Heart rate 2019-09-27 19:20:00 99 /min [facility] Body temperature 2019-09-27 19:20:00 36.44 Shira [facility] Respiratory rate 2019-09-27 19:20:00 16 /min [facility] Body height 2019-09-27 19:20:00 162.6 cm [facility] Body weight 2019-09-27 19:20:00 85.787 kg [facility] BMI 2019-09-27 19:20:00 32.46 kg/m2 [facility] Systolic blood 2019-08-18 16:00:00 109 mm[Hg] Univer sity of pressure [facility] Diastolic blood 2019-08-18 16:00:00 66 mm[Hg] Unive rsity of pressure [facility] Heart rate 2019-08-18 16:00:00 83 /min [facility] Respiratory rate 2019-08-18 16:00:00 18 /min [facility] Oxygen saturation in 2019-08-18 16:00:00 99 /min University Arterial blood by [facility] Pulse oximetry Branch Body temperature 2019-08-18 13:21:00 36.56 Shira [facility] Body height 2019-08-18 13:21:00 162.6 cm [facility] Body weight 2019-08-18 13:21:00 77.111 kg [facility] BMI 2019-08-18 13:21:00 29.18 kg/m2 [facility] Systolic blood 2019-07-29 04:27:00 134 mm[Hg] Univer [facility]ity of pressure [facility] Diastolic blood 2019-07-29 04:27:00 80 mm[Hg] [facility] Heart rate 2019-07-29 04:27:00 80 /min [facility] Respiratory rate 2019-07-29 04:27:00 18 /min [facility] Oxygen saturation in 2019-07-29 04:27:00 98 /min [facility] Arterial blood by [facility] Pulse oximetry Branch Body temperature 2019-07-28 22:32:00 37.22 Shira [facility] Body height 2019-07-28 22:32:00 162.6 cm [facility] Body weight 2019-07-28 22:32:00 81.647 kg [facility] BMI 2019-07-28 22:32:00 30.90 kg/m2 [facility] Systolic blood 2019-06-27 02:00:00 122 mm[Hg] [facility] Diastolic blood 2019-06-27 02:00:00 65 mm[Hg] [facility] Heart rate 2019-06-27 02:00:00 98 /min [facility] Respiratory rate 2019-06-27 02:00:00 18 /min [facility] Oxygen saturation in 2019-06-27 02:00:00 99 /min [facility] Arterial blood by [facility] Pulse oximetry Branch Body temperature 2019-06-27 00:13:46 36.83 Shira [facility] Body height 2019-06-27 00:10:00 160 cm [facility] Body weight 2019-06-27 00:10:00 79.379 kg [facility] BMI 2019-06-27 00:10:00 31.00 kg/m2 [facility] Systolic blood 2019-05-17 18:28:00 127 mm[Hg] [facility] Diastolic blood 2019-05-17 18:28:00 68 mm[Hg] [facility] Heart rate 2019-05-17 18:28:00 75 /min [facility] Body temperature 2019-05-17 18:28:00 36.89 Shira [facility] Respiratory rate 2019-05-17 18:28:00 16 /min [facility] Body height 2019-05-17 18:28:00 162.6 cm [facility] Body weight 2019-05-17 18:28:00 79.635 kg [facility] BMI 2019-05-17 18:28:00 30.14 kg/m2 [facility] Systolic blood 2019-04-20 17:06:00 134 mm[Hg] Univer sity of pressure [facility] Diastolic blood 2019-04-20 17:06:00 76 mm[Hg] Unive rsity of pressure [facility] Heart rate 2019-04-20 17:06:00 112 /min [facility] Body temperature 2019-04-20 17:06:00 37.33 Shira [facility] Respiratory rate 2019-04-20 17:06:00 18 /min [facility] Body weight 2019-04-20 17:06:00 81.647 kg [facility] BMI 2019-04-20 17:06:00 30.90 kg/m2 [facility] Oxygen saturation in 2019-04-20 17:06:00 98 /min [facility] Arterial blood by [facility] Pulse oximetry Branch Systolic blood 2019-03-21 22:03:00 139 mm[Hg] Univer sity of pressure [facility] Diastolic blood 2019-03-21 22:03:00 81 mm[Hg] Unive rsity of pressure [facility] Heart rate 2019-03-21 22:03:00 93 /min [facility] Body temperature 2019-03-21 22:03:00 37.33 Shira [facility] Respiratory rate 2019-03-21 22:03:00 16 /min [facility] Body height 2019-03-21 22:03:00 162.6 cm [facility] Body weight 2019-03-21 22:03:00 76.233 kg [facility] BMI 2019-03-21 22:03:00 28.85 kg/m2 [facility] Procedures Procedure Date / Time Performing Clinician Source Performed COMP. METABOLIC PANEL 2021-02-18 01:52:00 Raven Goldsmith [facility] ([id number]) Medical Branch ETHANOL 2021-02-18 01:52:00 Raven Goldsmith [facility] CBC WITH DIFF 2021-02-18 01:52:00 Raven Goldsmith [facility] URINE DRUG (IMMUNOASSAY) 2021-02-18 01:36:00 Raven Goldsmith [facility] SCREEN CONSENT/REFUSAL FOR 2021-02-17 23:35:03 Doctor Unassigned, No [facility] DIAGNOSIS AND TREATMENT [facility] MR BRAIN W WO CONTRAST 2020-10-18 19:21:42 Suzie Frey [facility]ENEF[facility] 2020-10-09 20:43:10 Doctor Unassigned, No [facility] LITHIUM 2020-10-05 10:05:00 Jacinto Parks [facility] HOSPITAL ADMISSION 2020-10-01 05:01:00 Doctor Unassigned, No Uni [facility] EPILEPSY MONITORING UNIT 2020-09-30 05:01:00 Doctor Unassigned, No [facility] DOCUMENTATION [facility] ASSIGNMENT OF BENEFITS 2020-09-26 17:05:24 Doctor Unassigned, No [facility] POCT TEST 2020-09-15 04:50:00 Cheo Galvin [facility] CBC WITH DIFF 2020-09-15 04:14:00 Cheo Galvin [facility] CREATINE KINASE 2020-09-15 04:03:00 Cheo Galvin [facility] COMP. METABOLIC PANEL 2020-09-15 04:03:00 Cheo Galvin [facility] ([id number]) [facility] ETHANOL 2020-09-15 04:03:00 Cheo Galvin [facility] URINE DRUG (IMMUNOASSAY) 2020-09-15 04:03:00 Cheo Galvin [facility] SCREEN URINALYSIS 2020-09-15 04:03:00 Cheo Galvin [facility] URINALYSIS 2020-08-31 17:10:00 Peace Paz [facility] POCT TEST 2020-08-31 17:08:00 Peace Paz [facility] COMP. METABOLIC PANEL 2020-08-31 16:30:00 Peace Paz [facility] ([id number]) Medical Branch CBC WITH DIFF 2020-08-31 16:30:00 Peace Paz [facility] LACTIC ACID WHOLE BLOOD 2020-08-31 16:30:00 Peace Paz [facility] POCT TEST 2020-08-30 02:44:00 Peace Paz [facility] URINALYSIS 2020-08-30 02:39:00 Peace Paz [facility] COVID-19 (ID NOW RAPID 2020-08-30 02:16:00 Peace Paz [facility] TESTING) [facility] NOTICE OF PRIVACY 2020-08-30 01:38:13 Doctor Unassigned, No [facility] CONSENT/REFUSAL FOR 2020-08-30 01:31:54 Doctor Unassigned, No [facility] [place] [facility] Name [facility] POCT URINALYSIS W/O 2020-06-07 16:03:00 Alma [facility]is [facility] SPECIFIC GRAVITY [facility] CT ABDOMEN PELVIS WO 2020-05-14 01:54:47 Peace Paz [facility] CONTRAST [facility] COMP. METABOLIC PANEL 2020-05-14 01:30:00 Peace Paz [facility] ([id number]) Medical Branch CBC WITH DIFF 2020-05-14 01:30:00 Peace Paz Yulia [facility] URINALYSIS 2020-05-14 01:08:00 Peace Paz [facility] POCT TEST 2020-05-14 01:08:00 Peace Paz [facility] CONSENT/REFUSAL FOR 2020-05-14 00:21:36 Doctor Unassigned, No [facility] [place] [facility]REAT[facility] Name [facility] GARDASIL 9 (HPV 9V) 2019-12-30 15:25:24 Abena Patel [facility] VACCINE [facility] GARDASIL 9 (HPV 9V) 2019-09-27 20:17:36 Abena Patel [facility] VACCINE [facility] POCT URINALYSIS W/O 2019-09-27 19:58:00 Abena Patel [facility] SPECIFIC GRAVITY [facility] POCT TEST 2019-09-27 19:41:00 Abena Patel [facility] XR CHEST 1 VW 2019-08-18 15:36:27 Agus Raven [place] o [facility] COVID-19 (ID NOW RAPID 2019-08-18 14:07:00 Raven Goldsmith [facility] TESTING) [facility] RAPID STREP SCREEN FOR 2019-08-18 14:06:00 Raven Goldsmith [facility] GROUP A [facility] TEST, SERUM 2019-08-18 14:05:00 Raven Goldsmith [facility] HEPATIC FUNCTION PANEL 2019-08-18 14:05:00 Raven Goldsmith [facility] ([id number]) (ALB,T.PRO,BILI Medical Branch T,BU/BC,ALT,AST,ALK PHOS) BASIC METABOLIC PANEL 2019-08-18 14:05:00 Raven Goldsmith [facility] (NA, K, CL, CO2, Medical Branch GLUCOSE, BUN, CREATININE, CA) CBC WITH DIFFERENTIAL 2019-08-18 14:05:00 Raven Goldsmith [facility] PROTHROMBIN TIME / INR 2019-08-18 14:05:00 Raven Goldsmith [facility] ACTIVATED PARTIAL 2019-08-18 14:05:00 Agus Raven [facility] THRMPLAS ISABELL [facility] CONSENT/REFUSAL FOR 2019-08-18 13:01:15 Doctor Unassigned, No Un [facility] DIAGNOSIS AND TREATMENT Name Medical Branch CT CHEST PULMONARY 2019-07-29 04:01:04 Yovani Romero [facility] ANGIOGRAM Medical Branch TROPONIN I 2019-07-29 01:38:00 Nick [facility] COMP. METABOLIC PANEL 2019-07-29 01:38:00 Yovani Romero [facility] ([id number]) Medical Branch CBC WITH DIFFERENTIAL 2019-07-29 01:38:00 [facility] D-DIMER 2019-07-29 01:38:00 Yovani Romero [facility] XR CHEST 2 VW 2019-07-28 23:41:53 Nick [facility] EKG-12 LEAD 2019-07-28 23:31:26 Nick [facility] POCT TEST 2019-07-28 23:19:00 Yovani Romero [facility] COVID-19 (ID NOW RAPID 2019-07-28 23:18:00 Yovani Romero [facility] TESTING) Medical Branch NOTICE OF PRIVACY 2019-07-28 22:13:33 Doctor Unassigned, No [facility] PRACTICES Name Medical Branch CONSENT/REFUSAL FOR 2019-07-28 22:13:23 [facility] Name [facility] CT ABDOMEN PELVIS WO 2019-06-27 01:06:22 Lory [facility]iment[facility] CONTRAST [facility] POCT TEST 2019-06-27 00:37:00 Lory Pimentel I Uni [facility] BASIC METABOLIC PANEL 2019-06-27 00:32:00 Lory Pimentel I U [facility] (NA, K, CL, CO2, Medical Branch GLUCOSE, BUN, CREATININE, CA) CBC WITH DIFFERENTIAL 2019-06-27 00:32:00 Lory Pimentel I [facility] URINALYSIS 2019-06-27 00:32:00 Lory Pimentel I [facility] GARDASIL 9 (HPV 9V) 2019-05-17 18:42:52 Abena Patel [facility] VACCINE [facility] POCT URINALYSIS W/O 2019-05-17 18:32:00 Abena Ptael [facility] SPECIFIC GRAVITY [facility] POCT TEST 2019-04-20 19:21:00 Raven Goldsmith [facility] URINALYSIS 2019-04-20 19:20:00 Agus Raven [facility] ADC / LCC - DRUG SCREEN 2019-04-20 19:20:00 Peace Paz [facility] TRIAGE Medical Branch LIPASE 2019-04-20 17:45:00 Raven Goldsmith [facility] COMP. METABOLIC PANEL 2019-04-20 17:45:00 Raven Goldsmith [facility] ([id number]) [facility] CBC WITH DIFFERENTIAL 2019-04-20 17:45:00 Raven Goldsmith [facility] HIV 1/2 AG-AB WITH 2019-03-21 22:15:00 Trever Katz [facility] Plan of Care Planned Activity Planned Date Details Comments Source Future Scheduled Test CHLAMYDIA SCREENING [facility] [code = CHLAMYDIA SCREENING] Future Scheduled Test COVID-19 VACCINE (1) [facility] [code = COVID-19 VACCINE (1)] Future Scheduled Test Hepatitis C screening [facility] (procedure) [code = 174364589] Future Scheduled Test Screening for [facility] malignant neoplasm of cervix (procedure) [code = 151934991] Future Scheduled Test INFLUENZA VACCINE [facility] [code = INFLUENZA VACCINE] Encounters Start End Encounter Admission Attending Care Care Encounter Source Date/Time Date/Time Type Type Clinicians Facility Department ID 2021-01-07 Emergency [facility] [id number] Univers 07:14:20 ity [facility] 2021-01-07 Emergency [facility] [id number] Univers 06:42:50 ity of [facility] 2021-01-07 Emergency [facility] [id number] Univers 06:25:23 ity of [facility] 2021-01-07 Emergency [facility] [id number] Univers 03:52:48 ity of [facility] 2021-01-07 Emergency [facility] [id number] Univers 03:25:06 ity of [facility] 2021-01-06 Emergency [facility] [id number] [facility] In[facility] ER RIN PARKINSON G[facility] [id number] [facility] 19:23:00 JOANNE 2021-02-17 2021-02-17 Emergency X SALAS WISONJA ERT [id number] Univers 18:01:00 22:48:00 YARYMARK ity [facility] 2021-02-17 2021-02-17 Emergency Raven Goldsmith [facility] 1.2.840. [id number] Univers 18:01:00 22:48:00 Belen Rodriguez [place] [id number] ity of [place] [id number] [place] [facility] [id number] [facility] tressa 084 [place] 2021-01-11 2021-01-11 Publications Editor Lab, Ang-Rmchp [facility] 1.2.840. 114 [id number] Univers 10:24:34 10:39:34 Visit Abena Patel [facility] [id number] ity [facility] [id number] Dwayne as MATERNAL [id number] [facility] ical & CHILD 107 [facility] 2021-01-11 2021-01-11 Outpatient R [facility] [id number] Univers 10:30:00 10:30:00 [id number] cassius [facility] 2021-01-11 2021-01-11 Outpatient [facility] [id number] Univers 10:30:00 10:30:00 [facility] 2020-12-21 2020-12-21 Telephone [facility] [id number] Univers 00:00:00 00:00:00 [id number] [facility] [id number] Dwayne as Jorge?Blea [id number] Tx anselmo thompson 2 [facility] 2020-12-18 2020-12-18 Outpatient Bryn PATEL [facility] [id number] Univers 09:00:00 09:00:00 ABENA [id number] [facility] 2020-12-18 2020-12-18 Outpatient [facility] [id number] Univers 09:00:00 09:00:00 ABENA hammonds [facility] 2020-11-28 2020-11-28 Outpatient Bryn MCKEE [facility] [id number] Univers 14:00:00 14:00:00 YOVANNY [id number] [facility] 2020-11-26 2020-11-26 Office Aditi [facility] [id number] Univers 07:48:27 09:58:10 Visit Richard [facility] [id number] ity of [place] [id number] Dwayne as Jorge?Blea [id number] [place] anselmo watermaney [address] [place] [address] Office [facility] 2020-11-26 2020-11-26 Outpatient RICHARD DYKES [facility] [id number] Univers 08:00:00 08:00:00 RICHARD PENNINGTON [id number] [facility] 2020-11-26 2020-11-26 Outpatient RICHARD DYKES [facility] [id number] Univers 08:00:00 08:00:00 RICHARD PENNINGTON [facility] 2020-11-20 2020-11-20 Outpatient RICHARD DYKES [facility] [id number] Univers 08:00:00 08:00:00 RICHARD PENNINGTON [id number] [facility] 2020-11-20 2020-11-20 Outpatient RICHARD DYKES [facility] [id number] Univers 08:00:00 08:00:00 RICHARD PENNINGTON [facility] 2020-11-14 2020-11-14 Telephone Aditi [facility] [id number] Univers 00:00:00 00:00:00 Richard Douglas [place] [id number] ity [facility] [id number] [place] Profess[place] [phone] [place] anselmo thomas 092 [facility] 2020-11-01 2020-11-01 Office [facility] 1.2.840.114 [id number] Univers 13:43:12 14:35:39 Visit Liliana GREGORY [id number] ity of [facility] [id number] [place] AT [phone] [place] anselmo RIOSY 204 [facility] 2020-11-01 2020-11-01 Outpatient Bryn SAL[facility]AS [facility] [id number] Univers 14:00:00 14:00:00 LILIANA [id number] [facility] 2020-11-01 2020-11-01 Outpatient R BRAD [facility] [id number] Univers 14:00:00 14:00:00 LILIANA [facility] 2020-10-22 2020-10-22 Outpatient R BRAD [facility] [id number] Univers 13:00:00 13:00:00 LILIANA [id number] [facility] 2020-10-19 2020-10-19 Outpatient R RICHARD PENNINGTON [facility] [id number] Univers 08:40:00 08:40:00 RICHARD PENNINGTON [facility] 2020-10-18 2020-10-18 [facility] 1.2.840.114 [id number] Univers 12:54:28 23:59:00 Encounter Lauryn Foley [id number] [facility] [id number] [facility] [id number] [facility] 804 Branch 2020-10-18 2020-10-18 Outpatient [facility] [id number] Univers 13:00:00 13:00:00 LAURYN [id number] radhay o [facility] 2020-10-18 2020-10-18 Outpatient R [facility] [id number] Univers 00:00:00 00:00:00 LAURYN hammonds o [facility] 2020-10-15 2020-10-15 Telephone [facility] 1.2.840.114 [id number] 00:00:00 00:00:00 Abena N [facility] THROAT SPECIALIST [id number] REGIONAL [id number] MATERNAL [id number] & CHILD [address] [place] [address] 2020-10-15 2020-10-15 Telephone [facility] [id number] Univers 00:00:00 00:00:00 Abena N [facility] THROAT SPECIALIST [id number] it y of [facility] 4.2.7.2.686 Dwayne as MATERNAL [phone] Med ical & CHILD 107 [facility] 2020-10-12 2020-10-12 [facility]phone [facility] 1.2.840.114 [id number] 00:00:00 00:00:00 Abena N EAR NOSE AND THROAT SPECIALIST 350.1.13.10 REGIONAL 4.2.7.2.686 MATERNAL [phone] & CHILD 107 [facility] 2020-10-12 2020-10-12 Telephone [facility] 1.2.840.114 [id number] [facility] 00:00:00 00:00:00 Abena N EAR NOSE AND THROAT SPECIALIST 350.1.13.10 it y of REGIONAL 4.2.7.2.686 Dwayne as MATERNAL [phone] Med ical & CHILD [address] [place] [address] 2020-10-11 2020-10-11 Outpatient Bryn [facility] [id number] 5Q-20 Univers 15:15:00 15:15:00 ABENA [id number] [facility] 2020-10-11 2020-10-11 Outpatient Bryn [facility] [id number] Univers 15:15:00 15:15:00 ABENA [facility] 2020-10-11 2020-10-11 Telephone [facility] 1.2.840.114 [id number] 00:00:00 00:00:00 Abena N EAR NOSE AND THROAT SPECIALIST 350.1.13.10 REGIONAL 4.2.7.2.686 MATERNAL [phone] & CHILD [address] [place] [address] 2020-10-11 2020-10-11 Telephone [facility] 1.2.840.114 [id number] [facility] 00:00:00 00:00:00 Abena N EAR NOSE AND THROAT SPECIALIST 350.1.13.10 it y of REGIONAL 4.2.7.2.686 Dwayne as MATERNAL [phone] Med ical & CHILD [address] [place] [address] 2020-10-09 2020-10-09 Office [facility] 1.2.198.198 [id number] 15:44:08 16:29:53 Visit Abena N EAR NOSE AND THROAT SPECIALIST 350.1.13.10 REGIONAL 4.2.7.2.686 MATERNAL [phone] & CHILD 107 [facility] 2020-10-09 2020-10-09 Office [facility] 1.2.923.687 [id number] Univers 15:44:08 16:29:53 Visit Abena Rabia EAR NOSE AND THROAT SPECIALIST 350.1.13.10 it y of [facility] 4.2.7.2.686 Dwayne as MATERNAL [phone] Med ical & CHILD 107 [facility] 2020-10-09 2020-10-09 Outpatient [facility] [id number] Univers 15:45:00 15:45:00 ABENA cassius [facility] 2020-10-09 2020-10-09 Orders Doctor COLT 1.2.840.114 [id number] Univers 00:00:00 00:00:00 Only Unassigned, PARUL 350.1.13.10 ity of [place] [facility] 4.2.7.2.686 Dwayne as [phone] [facility] 009 [place] 2020-10-08 2020-10-08 Transition Julio Grant 1.2.840.114 [id number] Univers 00:00:00 00:00:00 of Care Mesfin Kel Guerrero 350.1.13.10 ity of [place] [phone] [facility] [address] [place] 2020-10-01 2020-10-05 [facility] Mary Rios 1.2.840.114 [id number] Univers 09:39:00 10:22:00 Encounter S Parul 350.1.13.10 ity of [facility] 4.2.7.2.686 Dwayne as [phone] [facility] 0[address] [place] 2020-10-01 2020-10-01 Outpatient [facility] [id number] -[id number] Univers 08:30:00 08:30:00 [id number] ity [facility] 2020-10-01 2020-10-01 Outpatient R [facility] [id number] Univers 08:30:00 08:30:00 ity [facility] 2020-10-01 2020-10-01 Orders Doctor GREGORY 1.2.840.114 [id number] Univers 00:00:00 00:00:00 Only Unassigned, PARUL 350.1.13.10 ity of [place] [facility] 4.2.7.2.686 Dwayne as [id number] [facility] 00[address] [place] 2020-09-30 2020-09-30 Orders Doctor COLT 1.2.840.114 [id number] Univers 00:00:00 00:00:00 Only Unassigned, PARUL 350.1.13.10 ity of [place] [facility] 4.2.7.2.686 Dwayne as [phone] [address] 2020-09-28 2020-09-28 Outpatient [facility] [id number] 5Q-20 Univers 09:30:00 09:30:00 ABENA [id number] ity [facility] 2020-09-28 2020-09-28 Outpatient [facility] [id number] Univers 09:30:00 09:30:00 ABENA ity [facility] 2020-09-27 2020-09-27 Outpatient R [facility] [id number] -[id number] Univers 11:45:00 11:45:00 [id number] ity [facility] 2020-09-26 2020-09-26 Laboratory Only, Adc Test [facility] 1.2.840. 114 [id number] Univers 12:05:49 12:20:49 Only Mary Rios 350.1.13.10 ity of [place] [phone] [facility] 353 [place] 2020-09-26 2020-09-26 Outpatient R [facility] [id number] -20 Univers 12:00:00 12:00:00 [id number] ity [facility] 2020-09-26 2020-09-26 Outpatient R [facility] [id number] Univers 12:00:00 12:00:00 ity [facility] 2020-09-26 2020-09-26 Orders Doctor GREGORY 1.2.840.114 [id number] Univers 00:00:00 00:00:00 Only Unassigned, PARUL 350.1.13.10 ity of [place] [facility] 4.2.7.2.686 Dwayne as [phone] [facility] [address] [place] 2020-09-21 2020-09-21 Outpatient [facility]ARD [facility] [id number] Univers 10:00:00 10:00:00 [facility] PENNINGTON [id number] [facility] 2020-09-21 2020-09-21 Outpatient R[facility]ARD [facility] [id number] Univers 10:00:00 10:00:00 [facility] 2020-09-14 2020-09-15 Emergency Glenis, [place] 1.2.611.301 [id number] Univers 21:58:00 00:49:00 Cheo MOORE 350.1.13.10 it[place] [id number] [facility] [address] 2020-09-12 2020-09-13 Emergency Peace Paz [facility] 1.2.840.114 [id number] Univers 19:41:00 00:37:00 Yulia Foley 350.1.13.10 i ty of [place].2.[place] [phone] [facility] 084 [place] 2020-09-12 2020-09-12 Telephone Aditi [facility] 1.2.840.114 [id number] Univers 00:00:00 00:00:00 Richard Foley 350.1.13.10 ity of [place] [phone] [facility] 092 [facility] 2020-09-11 2020-09-11 Emergency , [facility] 1.2.303.555 [id number] Univers 20:23:00 22:08:00 Wong Foley 350.1.13.10 i ty of [place] [phone] [facility] 084 [place] 2020-08-31 2020-08-31 Emergency Kwaku K [facility] 1.2.840.114 [id number] Univers 11:19:00 13:58:00 Yulia Foley 350.1.13.10 i ty of [place] 4.2.7.2.686 [facility] [phone] [place] 867544 [place] 2020-08-29 2020-08-29 Emergency Peace Paz [facility] 1.2.840.114 [id number] Univers 20:48:00 23:11:00 Yulia Foley 350.1.13.10 i ty of [place] 4.2.7.2.686 [facility] [phone] [address] 2020-06-07 2020-06-07 Office [facility] 1.2.720.392 [id number] Univers 10:50:31 11:18:03 Visit Alma Estevez EAR NOSE AND THROAT SPECIALIST 350.1.13.10 ity [facility] 4.2.7.2.686 Dwayne as MATERNAL [phone] Med ical & CHILD [address] [place] [address] 2020-06-07 2020-06-07 Outpatient R IRMA[facility] [id number] 5Q-20 Univers 11:00:00 11:00:00 ALMA [id number] cassius pierce [facility] 2020-06-07 2020-06-07 Outpatient R IRMA [facility] [id number] Univers 11:00:00 11:00:00 ALMA braxton [facility] 2020-05-29 2020-05-29 Patient [facility] 1.2.840.114 [id number] Univers 00:00:00 00:00:00 Outreach [facility] 350.1.13.10 i ty of [facility] 4.2.7.2.686 [facility] [phone] [place] dical [address] [place] 2020-05-13 2020-05-13 Emergency Peace Paz [facility] 1.2.840.114 [id number] Univers 19:12:00 21:45:00 Yulia Foley 350.1.13.10 i ty of [place].2.686 [place] [phone] [place] 867544 [place] 2020-05-13 2020-05-13 Orders Doctor GREGORY 1.2.840.114 [id number] Univers 00:00:00 00:00:00 Only Unassigned, PARUL 350.1.13.10 ity of [place] [facility] 4.2.7.2.686 Dwayne as [phone] [address] 2020-03-22 2020-03-22 Outpatient [facility] [id number] -[id number] Univers 13:30:00 13:30:00 [id number] ity of [facility] 2020-01-19 2020-01-19 Telephone Visit, [facility] 1.2.285.187 [id number] Univers 00:00:00 00:00:00 [facility] EAR NOSE AND THROAT SPECIALIST 350.1.13.10 ity of Nurse [place] [address].2.7.2.686 Dwayne as MATERNAL [phone] Med ical & CHILD [address] [place] [address] 2020-01-17 2020-01-17 Office Gianna [facility] 1.2.840.114 [id number] Univers 13:39:45 14:25:08 Visit Trever Clemente EAR NOSE AND THROAT SPECIALIST 350.1.13.10 ity of [address]686 Dwayne as MATERNAL [phone] [facility] & [address] 2020-01-17 2020-01-17 Outpatient [facility] [id number] -[id number] Univers 13:45:00 13:45:00 TREVER ity o [facility] 2020-01-17 2020-01-17 Outpatient Bryn [facility] [id number] Univers 13:45:00 13:45:00 EDWARDNDA ity o [facility] 2020-01-16 2020-01-16 Telephone [facility] 1.2.768.354 [id number] Univers 00:00:00 00:00:00 Trever Clemente EAR NOSE AND THROAT SPECIALIST 350.1.13.10 ity of [place] [address].2.7.2.686 Dwayne as MATERNAL [phone] [facility] ical & CHILD [address] [place] [address] 2019-12-30 2019-12-30 Nurse Visit, [facility] Nurse [facility] 1.2 .840.114 [id number] Univers 10:22:21 10:37:21 Visit Abena Patel EAR NOSE AND THROAT SPECIALIST 350.1.13.10 ity of [facility] 4.2.7.2.686 Dwayne as MATERNAL [phone] [facility] ical & CHILD [address] [place] [address] 2019-12-30 2019-12-30 Outpatient R [facility] [id number] Univers 10:30:00 10:30:00 [id number] ity [facility] 2019-12-30 2019-12-30 Outpatient R [facility] [id number] Univers 10:30:00 10:30:00 ity [facility] 2019-12-21 2019-12-21 Telephone [facility] 1.2.318.626 [id number] Univers 00:00:00 00:00:[facility]SE AND THROAT SPECIAL[facility] 350.1.13.10 ity of [facility] 4.2.7.2.686 Dwayne as MATERNAL [phone] [facility] Incl & CHILD [address] [place] [address] 2019-12-20 2019-12-20 Office [facility] 1.2.840.114 [id number] Univers 13:03:11 13:55:34 Visit Brittanisony Clemente EAR NOSE AND THROAT SPECIALIST 350.1.13.10 ity of [facility] 4.2.7.2.686 Dwanye as MATERNAL [phone] [facility] & CHILD [address] [place] [address] 2019-12-20 2019-12-20 Outpatient [facility] [id number] Univers 12:45:00 12:45:00 TREVER [id number] ity o f [facility] 2019-12-20 2019-12-20 Outpatient [facility] [id number] Univers 12:45:00 12:45:[address] [facility] [facility] o [facility] 2019-11-07 2019-11-07 Outpatient R [facility] [id number] -[id number] Univers 14:00:00 14:00:00 [id number] ity [facility] 2019-10-24 2019-10-24 Telephone [facility] 1.2.840.114 [id number] Univers 00:00:00 00:00:00 Abena Camarillo EAR NOSE AND THROAT SPECIALIST 350.1.13.10 it y of [facility] 4.2.7.2.686 Dwayne as MATERNAL [id number] [facility] ical & CHILD [address] [place] [address] 2019-10-17 2019-10-17 Outpatient R [facility] [id number] -[id number] Univers 15:00:00 15:00:00 ity [facility] 2019-10-17 2019-10-17 Outpatient R [facility] [id number] Univers 15:00:00 15:00:00 ity [facility] 2019-09-28 2019-09-28 Telephone [facility] 1.2.840.114 [id number] Univers 00:00:00 00:00:00 Abena Camarillo EAR NOSE AND THROAT SPECIALIST 350.1.13.10 it y of REGIONAL 4.2.7.2.686 Dwayne as MATERNAL [phone] Med ical & CHILD [address] [place] [address] 2019-09-27 2019-09-27 Office [facility] 1.2.646.090 [id number] Univers 14:03:06 14:59:44 Visit Abena Camarillo EAR NOSE AND THROAT SPECIALIST 350.1.13.10 it y of REGIONAL 4.2.7.2.686 Dwayne as MATERNAL [phone] Med ical & CHILD [address] [place] [address] 2019-09-27 2019-09-27 Outpatient [facility] [id number] [id number]-20 Univers 14:00:00 14:00:00 ABENA [id number] [facility] 2019-09-27 2019-09-27 Outpatient [facility] [id number] Univers 14:00:00 14:00:00 ABENA [facility] 2019-08-26 2019-08-26 Publications Editor Lab, Ang-Rmchp [facility] 1.2.840. 114 [id number] Univers 12:52:43 13:06:01 Visit Alma Solis EAR NOSE AND THROAT SPECIALIST 350.1.13. 10 ity of [facility] 4.2.7.2.686 Dwayne as MATERNAL [phone] [facility], In[facility] & [address] 2019-08-26 2019-08-26 Outpatient R [facility] [id number] Univers 13:00:00 13:00:00 [id number] [facility] 2019-08-26 2019-08-26 Outpatient [facility] [id number] Univers 13:00:00 13:00:00 ALMA ity o f [facility] 2019-08-19 2019-08-19 Outpatient R [facility] [id number] Univers 13:00:00 13:00:00 [id number] ity of [facility] 2019-08-19 2019-08-19 Outpatient R [facility] [id number] Univers 13:00:00 13:00:00 ity of [facility] 2019-08-18 2019-08-18 Outpatient R [facility] [id number] -[id number] Univers 13:00:00 13:00:00 [id number] ity of [facility] 2019-08-18 2019-08-18 Outpatient R [facility] [id number] Univers 13:00:00 13:00:00 ity of [facility] 2019-08-18 2019-08-18 Emergency X AGUS [facility] ERT [id number] Univers 08:24:15 11:52:00 RAVEN hammonds [facility] 2019-08-18 2019-08-18 Emergency [facility] 1.2.555.509 [id number] Univers 08:24:15 11:52:00 Raven Foley 350.1.13.10 i ty of [address]686 [facility] [phone] [facility] [address] [place] 2019-08-18 2019-08-18 Orders Doctor GREGORY 1.2.840.114 [id number] Univers 00:00:00 00:00:00 Only UnassPARUL obregon 350.1.13.10 ity of [place] [address]686 Dwayne as [phone] [facility] 009 [place] 2019-07-31 2019-07-31 Telephone COLT Miramontes 1.2.153.247 [id number] Univers 00:00:00 00:00:00 Gabbie CAT 350.1.13.10 i ty of [facility] 42.7.2.686 Dwayne as [phone] [facility] [address] [place] 2019-07-28 2019-07-29 Emergency X NICK [facility] ERT [id number] Univers 18:06:33 00:02:00 SHINTA ity [facility] 2019-07-28 2019-07-29 Emergency Nick [facility] 1.2.840.114 [id number] Univers 18:06:33 00:02:00 [facility] Wilson 350.1.13.10 i ty of [place] 4.2.7.2.686 [place] [facility] [phone] [place] 867544 [place] 2019-07-18 2019-07-18 Telemedici [facility] 1.2.840.114 [id number] Univers 12:55:14 14:20:25 ne Visit Alma Estevez EAR NOSE AND THROAT SPECIALIST 350.1.13.10 ity of REGIONAL 4.2.7.2.686 Dwayne as MATERNAL [phone] Med ical & CHILD 107 [facility] 2019-07-18 2019-07-18 Outpatient [facility] [id number] 5Q-20 Univers 14:00:00 14:00:00 ALMA [id number] cassius o f [facility] 2019-07-18 2019-07-18 Outpatient [facility] [id number] Univers 14:00:00 14:00:00 ALMA hammonds o f [facility] 2019-06-27 2019-06-27 Outpatient R [facility] [id number] -[id number] Univers 15:30:00 15:30:00 [id number] [facility] 2019-06-27 2019-06-27 Outpatient R [facility] [id number] Univers 15:30:00 15:30:00 [facility] 2019-06-26 2019-06-26 Emergency X [facility] ERT [id number] Univers 19:06:29 21:03:00 LORY [facility] 2019-06-26 2019-06-26 Emergency [facility] 1.2.840.114 [id number] Univers 19:06:29 21:03:[address] [facility] 350.1.13.10 ity of [place] 4.2.7.2.686 [facility] [phone] [address] ([facility]) 2019-06-26 2019-06-26 Telephone [facility] 1.2.840.114 [id number] Univers 00:00:00 00:00:00 Alma Estevez EAR NOSE AND THROAT SPECIALIST 350.1.13.10 ity of REGIONAL 4.2.7.2.686 Dwayne as MATERNAL [id number] [facility] ical & CHILD [address] [place] [address] 2019-06-24 2019-06-24 Outpatient R [facility] [id number] Univers 09:30:00 09:30:00 [id number] ity [facility] 2019-06-24 2019-06-24 Outpatient R [facility] [id number] Univers 09:30:00 09:30:00 ity of [facility] 2019-06-23 2019-06-23 [facility]ici [facility] 1.2.840.114 [id number] Univers 12:57:38 15:49:57 ne Visit Alma Estevez EAR NOSE AND THROAT SPECIALIST 350.1.13.10 ity of REGIONAL 4.2.7.2.686 Dwayne as MATERNAL [phone] [facility] & [address] 2019-06-23 2019-06-23 Outpatient AKINLISSY, [facility] [id number] 5Q-20 Univers 15:30:00 15:30:00 ALMA [id number] radhay o f [facility] 2019-06-23 2019-06-23 Outpatient R IRMA, [facility] [id number] Univers 15:30:00 15:30:00 ALMA garciay o f [facility] 2019-06-22 2019-06-22 Outpatient R JORGE, [facility] [id number] Univers 13:30:00 13:30:00 ABENA ity [facility] 2019-06-22 2019-06-22 Outpatient [facility] [id number] Univers 09:00:00 09:00:00 [id number] ity [facility] 2019-06-22 2019-06-22 Telephone Visit, [facility] 1.2.567.692 [id number] Univers 00:00:00 00:00:00 Ang-Rmchp EAR NOSE AND THROAT SPECIALIST 350.1.13.10 ity of Nurse REGIONAL 4.2.7.2.686 Dwayne as MATERNAL [phone] [facility] Incl & CHILD [address] [place] [address] 2019-06-22 2019-06-22 Refill Doctor [facility] 1.2.840.114 [id number] Univers 00:00:00 00:00:00 Unassigned, EAR NOSE AND THROAT SPECIALIST 350.1.13.10 ity of [place] [facility] 4.2.7.2.686 Dwayne as MATERNAL [phone] Med ical & CHILD [address] [place] [address] 2019-06-21 2019-06-21 Publications Editor Lab, Ang-Rmchp [facility] 1.2.840. 114 [id number] Univers 13:00:32 13:15:32 Visit Alma Solis EAR NOSE AND THROAT SPECIALIST 350.1.13. 10 ity of REGIONAL 4.2.7.2.686 Dwayne as MATERNAL [id number] Med ical & CHILD [address] [place] [address] 2019-06-21 2019-06-21 Outpatient [facility] [id number] Univers 10:30:00 10:30:00 [id number] ity of [facility] 2019-06-21 2019-06-21 Outpatient [facility] [id number] Univers 10:30:00 10:30:00 ALMA pierce [facility] 2019-06-21 2019-06-21 Telephone [facility] 1.2.840.114 [id number] Univers 00:00:00 00:00:00 Abena Camarillo EAR NOSE AND THROAT SPECIALIST 350.1.13.10 it y of [facility] 4.2.7.2.686 Dwayne as MATERNAL [phone] Med ical & CHILD [address] [place] [address] 2019-06-20 2019-06-20 Telephone [facility] 1.2.840.114 [id number] Univers 00:00:00 00:00:00 Abena Camarillo EAR NOSE AND THROAT SPECIALIST 350.1.13.10 it y of REGIONAL 4.2.7.2.686 Dwayne as MATERNAL [phone] Med ical & CHILD [address] [place] [address] 2019-06-10 2019-06-10 Telephone [facility] 1.2.840.114 [id number] Univers 00:00:00 00:00:00 Abena N EAR NOSE AND THROAT SPECIALIST 350.1.13.10 it y of [facility] 4.2.7.2.686 Dwayne as MATERNAL [id number] Med ical & CHILD [address] [place] [address] 2019-05-20 2019-05-20 Telephone [facility] 1.2.840.114 [id number] Univers 00:00:00 00:00:00 Abena Camarillo EAR NOSE AND THROAT SPECIALIST 350.1.13.10 it y of [facility] 4.2.7.2.686 Dwayne as MATERNAL [id number] [facility] ical & CHILD [address] [place] [address] 2019-05-19 2019-05-19 Telephone [facility] 1.2.840.114 [id number] Univers 00:00:00 00:00:00 Abena Camarillo EAR NOSE AND THROAT SPECIALIST 350.1.13.10 it y of [facility] 4.2.7.2.686 Dwayne as MATERNAL [id number] [facility] ical & CHILD [address] [place] [address] 2019-05-17 2019-05-17 Office [facility] 1.2.406.413 [id number] Univers 13:24:09 13:50:08 Visit Abena Camarillo EAR NOSE AND THROAT SPECIALIST 350.1.13.10 it y of REGIONAL 4.2.7.2.686 Dwayne as MATERNAL [phone] [facility] ical & CHILD [address] [place] [address] 2019-05-17 2019-05-17 Outpatient Bryn PAT[facility] [id number] 5Q-20 Univers 13:30:00 13:30:00 ABENA [facility] 2019-05-17 2019-05-17 Outpatient Bryn [facility] [id number] Univers 13:30:00 13:30:00 ABENA yolie [facility] 2019-05-06 2019-05-06 Outpatient Bryn [facility] [id number] Univers 08:15:00 08:15:00 TREVER [id number] ity o f [facility] 2019-05-06 2019-05-06 Outpatient Bryn KATZ [facility] [id number] Univers 08:15:00 08:15:00 TREVER garciay o f [facility] 2019-04-20 2019-04-20 Emergency Peace Paz [facility] 1.2.840.114 [id number] Univers 11:02:10 14:18:00 Yulia Wilson 350.1.13.10 i ty of [place].2.[place] [phone] [facility] [address] [place] 2019-03-29 2019-03-29 Telephone DUANE Katz 1.2.598.955 [id number] Univers 00:00:00 00:00:00 Trever R EAR NOSE AND THROAT SPECIALIST 350.1.13.10 ity of [facility] 4.2.7.2.686 Dwayne as MATERNAL [phone] [facility] & CHILD [address] [place] [address] 2019-03-22 2019-03-22 Telephone Gianna WISONJA 1.2.708.377 [id number] Univers 00:00:00 00:00:00 Trever R EAR NOSE AND THROAT SPECIALIST 350.1.13.10 ity of [facility] 4.2.7.2.686 Dwayne as MATERNAL [id number] [address] 2019-03-21 2019-03-21 Office DUANE Katz 1.2.840.114 [id number] [facility] 15:39:38 16:25:05 Visit Trever Clemente EAR NOSE AND THROAT SPECIALIST 350.1.13.10 ity of [facility] 4.2.7.2.686 Dwayne as MATERNAL [phone] [facility] & CHILD [address] [place] [address] Results Test Description Test Time Test Comments Results Result Comments Source ETHANOL 2021-02-18 02:35:43 Test Item Value Reference Range Interpretation Comme nts ALCOHOL (test code = 6990157176) <10 mg/dL MARCELLE (test code = MARCELLE) <10 [id number] Toxic>100 Depression of SHIPPING INSPECTOR>400 Fatalities Reported [facility]. METABOLIC PANEL ([id number])2021-02-18 02:34:13 Test Item Value Reference Range Interpretation Comments NA (test code = 140 mmol/L 135-145 [id number]) K (test code = 3.5 mmol/L 3.5-5.0 3876575625) CL (test code = 107 mmol/L 98-108 7381151418) CO2 TOTAL (test code = 26 mmol/L 23-31 2186066579) AGAP (test code = 2-16 4423308094) BUN (test code = 3 mg/dL 7-23 L 7931532414) GLUCOSE (test code = 94 mg/dL 70-110 6165901357) CREATININE (test code = 0.72 mg/dL 0.50-1.04 8868406327) TOTAL BILI (test code = 0.6 mg/dL 0.1-1.6 5359275243) CALCIUM (test code = 10.3 mg/dL 8.6-10.6 8714028949) T PROTEIN (test code = 7.1 g/dL 6.3-8.2 8637928089) ALBUMIN (test code = 4.6 g/dL 3.5-5.0 1622943621) ALK PHOS (test code = 85 U/L 34-122 9125794594) ALTv (test code = 15 U/L 5-35 1742-6) AST(SGOT) (test code = 21 U/L 13-40 7207841022) eGFR (test code = mL/min/1.73m2 8454967945) MARCELLE (test code = MARCELLE) Association of [...] tests). Lab Interpretation Abnormal (test code = 58393-6) [facility] WITH [id number] 02:17:34 Test Item Value Reference Range Interpretation Comments WBC (test code = See_Comment H [Automated 3690-2) message] The sy stem which generated this result transmitted reference range : 4.30 - 11.10 10*3/?L. The reference range was not used to interpret this result as normal/abnormal . RBC (test code = See_Comment [Automated 789-8) message] The sy stem which generated this result transmitted reference range : 3.93 - 5.25 10*6/?L. The reference range was not used to interpret this result as normal/abnormal . HGB (test code = 13.0 g/dL 11.6-15.0 718-7) HCT (test code = 41.3 % 35.7-45.2 4544-3) MCV (test code = 90.8 fL 80.6-95.5 787-2) MCH (test code = 28.6 pg 25.9-32.8 785-6) MCHC (test code = 31.5 g/dL 31.6-35.1 L 786-4) RDW-SD (test code = 41.9 fL 39.0-49.9 75358-2) RDW-CV (test code = 12.7 % 12.0-15.5 788-0) PLT (test code = See_Comment [Automated 777-3) message] The sy stem which generated this result transmitted reference range : 166 - 358 10*3/ ?L. The reference r david was not used to interpret this result as normal/abnormal . MPV (test code = 9.5 fL 9.5-12.9 16131-3) NRBC/100 WBC (test See_Comment [Automat ed code = 6219898146) message] The system which generated this result transmitted reference range : 0.0 - 10.0 /100 WBCs. The refer ence range was not u sed to interpret th is result as normal/abnormal . NRBC x10^3 (test code <0.01 See_Comment [Auto mated = 9348234027) message] The s ystem which generated this result transmitted reference range : 10*3/?L. The reference range was not used to interpret this result as normal/abnormal . GRAN MAT (NEUT) % 60.3 % (test code = 770-8) IMM GRAN % (test code 0.80 % = 0013626333) LYMPH % (test code = 29.4 % 736-9) MONO % (test code = 7.0 % 5905-5) EOS % (test code = 2.0 % 713-8) BASO % (test code = 0.5 % 706-2) GRAN MAT x10^3(ANC) 7.08 10*3/uL 1.88-7.09 (test code = 9819555220) IMM GRAN x10^3 (test 0.09 10*3/uL 0.00-0.06 H code = 9931811900) LYMPH x10^3 (test code 3.45 10*3/uL 1.32-3.29 H = 731-0) MONO x10^3 (test code 0.82 10*3/uL 0.33-0.92 = 742-7) EOS x10^3 (test code = 0.23 10*3/uL 0.03-0.39 711-2) BASO x10^3 (test code 0.06 10*3/uL 0.01-0.07 = 704-7) Lab Interpretation Abnormal (test code = 23191-4) [facility] [id number] 21:16:55 Normal MRI of the brain.. NeuroQuant Hippocampal Asymmetry Report demonstrates Normal Scan: Does notsupport the presence of hippocampal asymmetry or volume loss. Preliminary Report Dictated by Resident: Kp Rodarte I, Gopal Powell MD., have reviewed this study and agree with the abovereport.MR BRAIN W WO CONTRAST COMPARISON: MR brain 11/24/2017. HISTORY: seizures TECHNIQUE: Seizure protocolMRI of the brain was performed prior to andafter intravenous contrast administration. Quantitative volumetry of the brain was performed using NeuroQuant([employer], [place], [place]) software package. The NeuroQuantanalysis was based on a sagittal 3D volumetric MPRAGE pulse sequence.Sequence-checking was performed to ensure appropriate high-resolution andcontrast image parameters. Correction for field/gradient inhomogeneities,removal of the overlying calvaria, alignment to the probabilistic atlas ofstereotypical anatomy and segmented volumetry of predetermined anatomicareas derived from multiple subjects of multiple age groups was performed.Two automated reports were generated. Contrast: 20 mL of Prohance intravenous. FINDINGS: The ventricles and cerebral sulci are normal in caliber andconfiguration.No midline shift, hydrocephalus or pathological extra-axial fluidcollection is present. The basal cisterns are unremarkable. No restricted diffusion is present to suggest acute infarct. No abnormalparenchymal signal abnormality is present. No abnormal gradient blooming.No abnormal intracr anial enhancement. The T2 flow voids for the major intracranial vessels are unremarkable. Noabnormalfluid signal is present in the mastoid air cells or paranasal airsinuses. The Hippocampal volume report demonstrates: Left Hippocampal volume: 3.84 cc, normative percentile of 29th.Right Hippocampal vol ume: 3.64 cc, normative percentile of 7th.Asymmetry Index: [...] volumetry of the brain was performed using NeuroQuant([employer], [place], [place]) software package. The NeuroQuantanalysis was based on a sagittal 3D volumetric MPRAGE pulse sequence.Sequence-checking was performed to ensure appropriate high-resolution andcontrast image parameters. Correction for field/gradient inhomogen eities,removal of the overlying calvaria, alignment to the [...] to suggest acute infarct. No abnormalparenchymal signal abn ormality is present. No abnormal gradient blooming.No abnormal [...] reviewed this study and agree with the abovereport.[facility]2021-07-30 10:56:47 Test Item Value Reference Range Interpretation Comments Haugen (test code = 0.8 mmol/L 0.6-1.2 5385214623) MARCELLE (test code = MARCELLE) Toxic Range: ? Greater than 1.2 mmol/L Lab Interpretation (test Normal code = 19947-3) [facility]2021-07-19 18:22:00 Test Item Value Reference Range Interpretation Comments LITHIUM LEVEL (BEAKER) 0.8 mmol/L 0.8-1.2 (test code = 630) SCAN RESULT (test code = See Scanned Report [id number]) [place], [id number] 14:13:01Reason for exam:->abnormal imaging [facility] : 1995 Sex: FFluoroscopic unit utilized for a procedure performed in the OR. No interpretation was requested. Refer to the operative report for findings. Refer to PACS for patient radiation dose information.COMPREHENSIVE METABOLIC [id number] 06:43:00 Test Item Value Reference Range Interpretation [...] S NOT APPLICABLE FOR DIALYSIS PATIEN TS. Family Support Worker ID - MADISON MCBC (HEMOGRAM ONLY)2020-09-24 06:04:00 [...] (BEAKER) (test code = 413) COMPREHENSIVE METABOLIC [id number] 07:06:00 Test Item Value Reference Range Interpretation [...] S NOT APPLICABLE FOR DIALYSIS PATIEN TS. Family Support Worker ID - PIAYA LCBC (HEMOGRAM ONLY)2020-09-23 06:47:00 [...] (BEAKER) (test code = 413) COMPREHENSIVE METABOLIC [id number] 08:27:00 Test Item Value Reference Range Interpretation [...] S NOT APPLICABLE FOR DIALYSIS PATIEN TS. Family Support Worker ID - MADISON [id number] 08:27:00 Test Item Value Reference Range Interpretation Comments MAGNESIUM (BEAKER) (test code = 2.4 mg/dL 1.6-2.6 627) Family Support Worker ID - MADISON MPROTHROMBIN TIME/[id number] 07:59:00 Test Item Value Reference Range Interpretation Comments PROTIME (BEAKER) 13.0 seconds 11.9-14.2 (test code = 759) INR (BEAKER) (test 1.00 See_Comment [Automat ed message] code = 370) The system [employer] generated this result transmitted ref erence range: [...] code = 2801) DRUG SCREEN PANEL 2 [id number] 05:19:56 Test Item Value Reference Range Interpretation Comments AMPHET (test code = Negative Negative 4222041071) VALERIE U (test code = Negative Negative 9135372696) BENZO U (test code = Negative Negative 8244028741) Cocaine Metabolite (test Negative Negative code = 7235005834) METHADONE (test code = Negative Negative 6059162309) OPIATES (test code = Negative Negative 1853158932) PCP (test code = Negative Negative 8601914366) THC (test code = Negative Negative 8635325097) MARCELLE (test code = MARCELLE) Urine Drug [...] testing). Lab Interpretation (test Normal code = 45149-7) [facility] WITH [id number] 04:55:16 Test Item Value Reference Range Interpretation Comments WBC (test code = See_Comment H [Automated 7565-2) message] The sy stem which generated this result transmitted reference range : 4.30 - 11.10 10*3/?L. The reference range was not used to interpret this result as normal/abnormal . RBC (test code = See_Comment L [Automated 859-8) message] The sy stem which generated this [...] RDW-SD (test code = 41.8 fL 39.0-49.9 63753-7) RDW-CV (test code = 12.7 % 12.0-15.5 788-0) PLT (test code = See_Comment [Automated 777-3) message] The sy stem which generated this result transmitted reference range : 166 - 358 10*3/ ?L. The reference r david was not used to interpret this result as normal/abnormal . MPV (test code = 9.3 fL 9.5-12.9 L 24492-8) NRBC/100 WBC (test See_Comment [Automat ed code = 2951881463) message] The system which generated this result transmitted reference range : 0.0 - 10.0 /100 WBCs. The refer ence range was not u sed to interpret th is result as normal/abnormal . NRBC x10^3 (test code <0.01 See_Comment [Auto mated = 6455990763) message] The s ystem which generated this result transmitted reference range : 10*3/?L. The reference range was not used to interpret this result as normal/abnormal . GRAN MAT (NEUT) % 54.5 % (test code = 770-8) IMM GRAN % (test code 1.10 % = 8900690194) LYMPH % (test code = 36.2 % 736-9) MONO % (test code = 6.8 % 5905-5) EOS % (test code = 1.2 % 713-8) BASO % (test code = 0.2 % 706-2) GRAN MAT x10^3(ANC) 6.13 10*3/uL 1.88-7.09 (test code = 0436579128) IMM GRAN x10^3 (test 0.12 10*3/uL 0.00-0.06 H code = 5162872885) LYMPH x10^3 (test code 4.07 10*3/uL 1.32-3.29 H = 731-0) MONO x10^3 (test code 0.76 10*3/uL 0.33-0.92 = 742-7) EOS x10^3 (test code = 0.14 10*3/uL 0.03-0.39 711-2) BASO x10^3 (test code <0.03 0.01-0.07 = 704-7) Lab Interpretation Abnormal (test code = 90934-2) [facility] [id number] 04:50:00 Test Item Value Reference Range Interpretation Comments POCT PREG (test code = 1605) negative POCT PREG LOT # (test code = 3575) [id number] POCT PREG TEST DATE (test 03-08-2022 code = 3576) Lab Interpretation (test code = Normal 78240-3) [facility] 04:44:46 Test Item Value Reference Range Interpretation Comments APPEARANCE (test code = Clear Clear 8174503063) COLOR (test code = Straw Yellow A 4739292542) PH (test code = 4.8-8.0 1735815088) SP GRAVITY (test code = 1.003-1.030 9160126603) GLU U QUAL (test code = Normal Normal 4641412448) BLOOD (test code = Negative Negative 1058396061) KETONES (test code = Negative Negative 0763857859) PROTEIN (test code = Negative Negative 2887-8) UROBILIN (test code = Normal Normal 7086698173) BILIRUBIN (test code = Negative Negative 0714449232) NITRITE (test code = Negative Negative 3439301186) LEUK WILBERT (test code = Negative Negative 2505552029) RBC/HPF (test code = See_Comment [Autom ated message] 5304199654) The system [employer] generated this result transmitted ref erence range: 0 - 3 HP F. The reference range was not used to int erpret this result as normal/abnormal . WBC/HPF (test code = See_Comment [Autom ated message] 2748219354) The system [employer] generated this result transmitted ref erence range: 0 - 5 HP F. The reference range was not used to int erpret this result as normal/abnormal . BACTERIA (test code = Negative Negative 4669540983) SQ EPITH (test code = See_Comment H [Auto mated message] 7769835743) The system [employer] generated this result transmitted ref erence range: <=2 HPF. The reference range was not used to int erpret this result as normal/abnormal . Lab Interpretation (test Abnormal code = 15905-6) [facility] 04:38:17 Test Item Value Reference Range Interpretation Comments ALCOHOL (test code = <10 mg/dL 9310298097) MARCELLE (test code = Toxic Greater than or MARCELLE) equal to 80 mg/dL. NOTE: Whole blood values are approximately 10% to 15% lower than serum and plasma. [facility] WestCREATINE [id number] 04:38:12 Test Item Value Reference Range Interpretation Comments CK (test code = 3915345895) <20 33-194 L Lab Interpretation (test code = Abnormal 15691-2) [facility] METABOLIC PANEL (09161)2020-09-15 04:38:07 Test Item Value Reference Range Interpretation Comments NA (test code = 141 mmol/L 135-145 1855367858) K (test code = 3.7 mmol/L 3.5-5.0 3630112195) CL (test code = 108 mmol/L 98-108 4547826098) CO2 TOTAL (test code = 25 mmol/L 23-31 0148187496) AGAP (test code = 2-16 6506895323) BUN (test code = 9 mg/dL 7-23 3606929376) GLUCOSE (test code = 89 mg/dL 70-110 6532784213) CREATININE (test code = 0.54 mg/dL 0.50-1.04 0074944332) TOTAL BILI (test code = <0.1 0.1-1.1 L 4068116864) CALCIUM (test code = 9.0 mg/dL 8.6-10.6 3826143429) T PROTEIN (test code = 5.8 g/dL 6.3-8.2 L 6622063412) ALBUMIN (test code = 3.4 g/dL 3.5-5.0 L 4266857114) ALK PHOS (test code = 71 U/L 34-122 9160815873) ALTv (test code = 13 U/L 5-35 1742-6) AST(SGOT) (test code = 18 U/L 13-40 4729395474) eGFR (test code = mL/min/1.73m2 9430222827) MARCELLE (test code = MARCELLE) Association of [...] tests). Lab Interpretation Abnormal (test code = 08205-8) [facility] [id number] 17:30:33 Test Item Value Reference Range Interpretation Comments APPEARANCE (test code = Hazy Clear A 9445727708) COLOR (test code = Straw Yellow A 1675985386) PH (test code = 4.8-8.0 3908602564) SP GRAVITY (test code = 1.003-1.030 4630385558) GLU U QUAL (test code = Normal Normal 0672910806) BLOOD (test code = Negative Negative 3536964852) KETONES (test code = Negative Negative 7138934242) PROTEIN (test code = Negative Negative 2887-8) UROBILIN (test code = Normal Normal 5226085421) BILIRUBIN (test code = Negative Negative 0621227025) NITRITE (test code = Negative Negative 8416427261) LEUK WILBERT (test code = 500/uL Negative A 2313118031) RBC/HPF (test code = See_Comment [Autom ated message] 3104159372) The system [employer] generated this result transmitted ref erence range: 0 - 3 HP F. The reference range was not used to int erpret this result as normal/abnormal . WBC/HPF (test code = See_Comment H [Autom ated message] 2446349022) The system [employer] generated this result transmitted ref erence range: 0 - 5 HP F. The reference range was not used to int erpret this result as normal/abnormal . BACTERIA (test code = Few Negative A 4381240546) SQ EPITH (test code = HPF 7855365936) WBC CLUMPS (test code = See_Comment H [Au tomated message] 4673350430) The system [employer] generated this result transmitted ref erence range: <=1 HPF. The reference range was not used to int erpret this result as normal/abnormal . Lab Interpretation (test Abnormal code = 30706-8) [facility] [id number] 17:08:00 Test Item Value Reference Range Interpretation Comments POCT PREG (test code = 1605) negative On board controls acceptable with present C Line (test code = 3574) POCT PREG LOT # (test code = 3575) [id number] POCT PREG TEST DATE (test code = 3576) Lab Interpretation (test code = Normal 28832-3) [facility]. Metabolic Panel (42112)2020-08-31 16:55:49 Test Item Value Reference Range Interpretation Comments NA (test code = 141 mmol/L 135-145 1991500639) K (test code = 3.9 mmol/L 3.5-5.0 5040876710) CL (test code = 106 mmol/L 98-108 0864095941) CO2 TOTAL (test code = 27 mmol/L 23-31 8343786537) AGAP (test code = 2-16 1827942817) BUN (test code = 5 mg/dL 7-23 L 6560947205) GLUCOSE (test code = 91 mg/dL 70-110 7460399307) CREATININE (test code = 0.68 mg/dL 0.50-1.04 6129293129) TOTAL BILI (test code = 0.2 mg/dL 0.1-1.5 5350278113) CALCIUM (test code = 10.0 mg/dL 8.6-10.6 0240405671) T PROTEIN (test code = 7.2 g/dL 6.3-8.2 9906822109) ALBUMIN (test code = 4.3 g/dL 3.5-5.0 8281689478) ALK PHOS (test code = 75 U/L 34-122 5762912184) ALTv (test code = 14 U/L 5-35 1742-6) AST(SGOT) (test code = 30 U/L 13-40 1567082230) eGFR (test code = mL/min/1.73m2 6864194536) MARCELLE (test code = MARCELLE) Association of [...] tests). Lab Interpretation Abnormal (test code = 38380-7) [facility] with [id number] 16:51:47 Test Item Value Reference Range Interpretation Comments WBC (test code = See_Comment [Automated 1301-2) message] The sy stem which generated this result transmitted reference range : 4.30 - 11.10 10*3/?L. The reference range was not used to interpret this result as normal/abnormal . RBC (test code = See_Comment [Automated 949-8) message] The sy stem which generated this [...] RDW-SD (test code = 43.1 fL 39.0-49.9 77266-8) RDW-CV (test code = 13.1 % 12.0-15.5 788-0) PLT (test code = See_Comment [Automated 777-3) message] The sy stem which generated this result transmitted reference range : 166 - 358 10*3/ ?L. The reference r david was not used to interpret this result as normal/abnormal . MPV (test code = 10.3 fL 9.5-12.9 64689-9) NRBC/100 WBC (test See_Comment [Automat ed code = 4910683839) message] The system which generated this result transmitted reference range : 0.0 - 10.0 /100 WBCs. The refer ence range was not u sed to interpret th is result as normal/abnormal . NRBC x10^3 (test code <0.01 See_Comment [Auto mated = 4393358123) message] The s ystem which generated this result transmitted reference range : 10*3/?L. The reference range was not used to interpret this result as normal/abnormal . GRAN MAT (NEUT) % 70.5 % (test code = 770-8) IMM GRAN % (test code 0.70 % = 7527109722) LYMPH % (test code = 19.0 % 736-9) MONO % (test code = 8.8 % 5905-5) EOS % (test code = 0.7 % 713-8) BASO % (test code = 0.3 % 706-2) GRAN MAT x10^3(ANC) 4.96 10*3/uL 1.88-7.09 (test code = 5289561681) IMM GRAN x10^3 (test 0.05 10*3/uL 0.00-0.06 code = 1335188066) LYMPH x10^3 (test code 1.34 10*3/uL 1.32-3.29 = 731-0) MONO x10^3 (test code 0.62 10*3/uL 0.33-0.92 = 742-7) EOS x10^3 (test code = 0.05 10*3/uL 0.03-0.39 711-2) BASO x10^3 (test code <0.03 0.01-0.07 = 704-7) Lab Interpretation Abnormal (test code = 74494-6) [facility] West[facility] Acid Whole [id number] 16:37:28 Test Item Value Reference Range Interpretation Comments LACTIC ACID (test code = 1.74 mmol/L 0.50-2.20 5853381772) Lab Interpretation (test code = Normal 63024-2) [facility] 03:04:28 Test Item Value Reference Range Interpretation Comments APPEARANCE (test code = Clear Clear 1394410864) COLOR (test code = Colorless Yellow A 9894668976) PH (test code = 4.8-8.0 3862233469) SP GRAVITY (test code = 1.003-1.030 9233306544) GLU U QUAL (test code = Normal Normal 6704335763) BLOOD (test code = 2+ Negative A 8311203887) KETONES (test code = Negative Negative 2834240706) PROTEIN (test code = Negative Negative 2887-8) UROBILIN (test code = Normal Normal 8993206572) BILIRUBIN (test code = Negative Negative 1980613500) NITRITE (test code = Negative Negative 3494998185) LEUK WILBERT (test code = Negative Negative 5532648155) RBC/HPF (test code = See_Comment [Autom ated message] 6461822802) The system [employer] generated this result transmit con reference range : 0 - 3 HPF. The refe rence range was not u sed to interpret th is result as normal/abnormal . WBC/HPF (test code = <1 See_Comment [Autom ated message] 8541205010) The system [employer] generated this result transmit con reference range : 0 - 5 HPF. The refe rence range was not u sed to interpret th is result as normal/abnormal . BACTERIA (test code = Few Negative A 5603450688) SQ EPITH (test code = HPF 4665317782) Lab Interpretation (test Abnormal code = 57386-1) [facility] [id number] 02:44:00 Test Item Value Reference Range Interpretation Comments POCT PREG (test code = 1605) negative On board controls acceptable with present C Line (test code = 3574) POCT PREG LOT # (test code = 3575) [id number] POCT PREG TEST DATE (test 2022-03-08 code = 3576) Lab Interpretation (test code = Normal 30793-1) [facility]OVID[facility] (ID NOW RAPID TESTING)2020-08-30 02:29:07 Test Item Value Reference Range Interpretation Comments SARS-CoV-2 Rapid ID NOW Positive Not Detected A (test code = 87528-4) MARCELLE (test code = MARCELLE) ID NOW COVID-19 Assay is an isothermal nucleic acid amplification test intended for the qualitative detection of nucleic acid from SARS-CoV-2 viral RNA in nasopharyngeal (BROTHEL KEEPER) specimens. It is used under Emergency Use [...] indicated. Lab Interpretation Abnormal (test code = 17273-2) [facility] URINALYSIS W/O SPECIFIC [id number] 16:04:00 Test Item Value Reference Range Interpretation [...] code = 3257) Trace Negative - Negative [facility] URINALYSIS W/O SPECIFIC [id number] 16:04:00 Test Item Value Reference Range Interpretation [...] code = 3257) Trace Negative - Negative [facility] URINALYSIS W/O SPECIFIC [id number] 16:04:00 Test Item Value Reference Range Interpretation [...] code = 3257) Trace Negative - Negative [facility]20[facility] 02:02:48 Test Item Value Reference Range Interpretation Comments APPEARANCE (test code = Cloudy Clear A 7839990992) COLOR (test code = Yellow Yellow 7906155390) PH (test code = 4.8-8.0 1658284115) SP GRAVITY (test code = 1.003-1.030 6306505208) GLU U QUAL (test code = Normal Normal 9986105591) BLOOD (test code = 2+ Negative A 5318260880) KETONES (test code = Negative Negative 9065617635) PROTEIN (test code = 100 mg/dL Negative A 2887-8) UROBILIN (test code = Normal Normal 6837027570) BILIRUBIN (test code = Negative Negative 4702792306) NITRITE (test code = Negative Negative 1456838880) LEUK WILBERT (test code = 500/uL Negative A 6214752706) RBC/HPF (test code = See_Comment H [Autom ated message] 5986855864) The system [employer] generated this result transmit con reference range : 0 - 3 HPF. The refe rence range was not u sed to interpret th is result as normal/abnormal . WBC/HPF (test code = >182 See_Comment H [Autom ated message] 8918879524) The system [employer] generated this result transmit con reference range : 0 - 5 HPF. The refe rence range was not u sed to interpret th is result as normal/abnormal . BACTERIA (test code = Few Negative A 6735257556) MUCOUS (test code = Slight Negative LPF A 3591231924) SQ EPITH (test code = HPF 1295227713) WBC CLUMPS (test code = See_Comment H [Au tomated message] 0236168543) The system [employer] generated this result transmit con reference range : <=1 HPF. The refere nce range was not u sed to interpret th is result as normal/abnormal . Lab Interpretation (test Abnormal code = 52856-2) [facility] Metabolic [id number] 02:00:26 Test Item Value Reference Range Interpretation Comments NA (test code = 139 mmol/L 135-145 0955297261) K (test code = 4.1 mmol/L 3.5-5.0 7533658058) CL (test code = 99 mmol/L 98-108 8811266575) CO2 TOTAL (test code = 32 mmol/L 23-31 H 7607308025) AGAP (test code = 2-16 5376535426) BUN (test code = 4 mg/dL 7-23 L 8263843112) GLUCOSE (test code = 102 mg/dL 70-110 0894745226) CREATININE (test code = 0.63 mg/dL 0.50-1.04 4686062478) TOTAL BILI (test code = 0.8 mg/dL 0.1-1.5 7839414174) CALCIUM (test code = 10.2 mg/dL 8.6-10.6 4970022699) T PROTEIN (test code = 8.3 g/dL 6.3-8.2 H 7161809294) ALBUMIN (test code = 5.3 g/dL 3.5-5.0 H 3855695264) ALK PHOS (test code = 80 U/L 34-122 8776664777) ALTv (test code = 13 U/L 5-35 1742-6) AST(SGOT) (test code = 24 U/L 13-40 4249461679) eGFR Calculation mL/min/1.73m2 (Non-) (test code = 5774678305) eGFR Calculation mL/min/1.73m2 () (test code = 2311009245) MARCELLE (test code = MARCELLE) Association of [...] tests). Lab Interpretation Abnormal (test code = 72225-8) [facility] with [id number] 01:59:51 Test Item Value Reference Range Interpretation Comments WBC (test code = See_Comment H [Automated 4890-2) message] The system which generated this result transmit con reference range : 4.30 - 11.10 10*3/?L. The reference range was not used to interpret this result as normal/abnormal . RBC (test code = See_Comment [Automated 899-8) message] The system which generated this result [...] RDW-SD (test code = 40.9 fL 39.0-49.9 45869-4) RDW-CV (test code = 12.4 % 12.0-15.5 788-0) PLT (test code = See_Comment [Automated 777-3) message] The system which generated this result transmit con reference range : 166 - 358 10*3/ ?L. The reference range was not u sed to interpret th is result as normal/abnormal . MPV (test code = 10.1 fL 9.5-12.9 58946-4) NRBC/100 WBC (test See_Comment [Automat ed code = 3613220055) message] The system which generated this result transmit con reference range : 0.0 - 10.0 /100 WBCs. The reference range was not used to interpret this result as normal/abnormal . NRBC x10^3 (test code <0.01 See_Comment [Auto mated = 2670739449) message] The system which generated this result transmit con reference range : 10*3/?L. The reference range was not used to interpret this result as normal/abnormal . GRAN MAT (NEUT) % 78.8 % (test code = 770-8) IMM GRAN % (test code 1.00 % = 0240716406) LYMPH % (test code = 12.8 % 736-9) MONO % (test code = 6.5 % 5905-5) EOS % (test code = 0.5 % 713-8) BASO % (test code = 0.4 % 706-2) GRAN MAT x10^3(ANC) 15.38 10*3/uL 1.88-7.09 H (test code = 6094609385) IMM GRAN x10^3 (test 0.19 10*3/uL 0.00-0.06 H code = 4436911330) LYMPH x10^3 (test code 2.49 10*3/uL 1.32-3.29 = 731-0) MONO x10^3 (test code 1.26 10*3/uL 0.33-0.92 H = 742-7) EOS x10^3 (test code = 0.09 10*3/uL 0.03-0.39 711-2) BASO x10^3 (test code 0.07 10*3/uL 0.01-0.07 = 704-7) Lab Interpretation Abnormal (test code = 44777-1) [facility] [id number] 01:08:00 Test Item Value Reference Range Interpretation Comments POCT PREG (test code = 1605) negative On board controls acceptable with positive C Line (test code = 3574) POCT PREG LOT # (test code = 3575) [id number] POCT PREG TEST DATE (test 12/06/2021 code = 3576) Lab Interpretation (test code = Normal 60499-8) [facility] URINALYSIS W/O SPECIFIC [id number] 19:59:00 Test Item Value Reference Range Interpretation [...] code = 3257) negative Negative - Negative [facility] URINALYSIS W/O SPECIFIC [id number] 19:59:00 Test Item Value Reference Range Interpretation [...] code = 3257) negative Negative - Negative [facility] [id number] 19:41:00 Test Item Value Reference Range Interpretation Comments POCT PREG (test code = 1605) Negative On board controls acceptable with C Yes Line (test code = 3574) POCT PREG LOT # (test code = 3575) POCT PREG TEST DATE (test code = 3576) [facility] [id number] 19:41:00 Test Item Value Reference Range Interpretation Comments POCT PREG (test code = 1605) Negative On board controls acceptable with C Yes Line (test code = 3574) POCT PREG LOT # (test code = 3575) POCT PREG TEST DATE (test code = 3576) [facility] [id number] 15:44:00HISTORY: Cough. TECHNIQUE: Portable AP erect view of the chest is obtained. Comparison madewith 07/28/2019 study. FINDINGS: No acute pneumonia. No pneumothorax or pleural effusion orpulmonary congestiondetected. Cardiac size is within normal limits. Smallcalcified granulomas are suspected in left middle and lower lung zones. CONCLUSIONS: No signs of acute cardiopulmonary disease.[facility], Radiant ResultsInft User - 08/18/2019 10:45 AM CDTHISTORY: Cough.TECHNIQUE: Portable AP erect view of the chest is obtained. Comparison madewith 07/28/2019 study.FINDINGS: No acute pneumonia. No pneumothorax or pleural effusion orpulmonary congestion detected. Cardiac size is within normal limits. Smallcalcified granulomas are suspected in left middle and lower lung zones.CONCLUSIONS: No signs of acute cardiopulmonary disease.[facility] WITH [id number] 15:25:00 Test Item Value Reference Range Interpretation Comments WBC (test code = See_Comment H [Automated 1853-2) message] The sy stem which generated this result transmitted reference range : 4.30 - 11.10 10*3/?L. The reference range was not used to interpret this result as normal/abnormal . RBC (test code = See_Comment [Automated 199-8) message] The sy stem which generated this [...] RDW-SD (test code = 42.2 fL 39-49.9 53514-2) RDW-CV (test code = 13.1 % 12-15.5 788-0) PLT (test code = See_Comment H [Automated 777-3) message] The sy stem which generated this result transmitted reference range : 166 - 358 10*3/ ?L. The reference r david was not used to interpret this result as normal/abnormal . MPV (test code = 10.3 fL 9.5-12.9 80023-5) NRBC/100 WBC (test See_Comment [Automat ed code = 5531171388) message] The system which generated this result transmitted reference range : 0.0 - 10.0 /100 WBCs. The refer ence range was not u sed to interpret th is result as normal/abnormal . NRBC x10^3 (test code <0.01 See_Comment [Auto mated = 4214893481) message] The s ystem which generated this result transmitted reference range : 10*3/?L. The reference range was not used to interpret this result as normal/abnormal . GRAN MAT (NEUT) % 57.0 % (test code = 770-8) IMM GRAN % (test code 0.90 % = 5160848307) LYMPH % (test code = 31.7 % 736-9) MONO % (test code = 8.1 % 5905-5) EOS % (test code = 1.8 % 713-8) BASO % (test code = 0.5 % 706-2) GRAN MAT x10^3(ANC) 7.49 10*3/uL 1.88-7.09 H (test code = 9540045079) IMM GRAN x10^3 (test 0.12 10*3/uL 0-0.06 H code = 2453539892) LYMPH x10^3 (test code 4.16 10*3/uL 1.32-3.29 H = 731-0) MONO x10^3 (test code 1.07 10*3/uL 0.33-0.92 H = 742-7) EOS x10^3 (test code = 0.23 10*3/uL 0.03-0.39 711-2) BASO x10^3 (test code 0.06 10*3/uL 0.01-0.07 = 704-7) Lab Interpretation Abnormal (test code = 61475-2) [facility]PREG[facility]NCY TEST, [id number] 14:52:00 Test Item Value Reference Range Interpretation Comments PREG SERUM (test code Negative = 3742157117) MARCELLE (test code = MARCELLE) Less than 10 IU/L. ?If low titer or ectopic is suspected, resubmit specimen in 48-72 hours. [facility] Metabolic Panel (NA, K, CL, CO2, GLUCOSE, BUN, CREATININE, CA)2019-08-18 14:48:00 Test Item Value Reference Range Interpretation Comments NA (test code = 141 mmol/L 135-145 4865726590) K (test code = 3.9 mmol/L 3.5-5 4426625315) CL (test code = 111 mmol/L 98-108 H 3246471017) CO2 TOTAL (test code = 21 mmol/L 23-31 L 0883713305) AGAP (test code = 2-16 7154748818) BUN (test code = 14 mg/dL 7-23 0972014526) GLUCOSE (test code = 92 mg/dL 70-110 9917258614) CREATININE (test code = 0.80 mg/dL 0.5-1.04 7389213719) CALCIUM (test code = 9.3 mg/dL 8.6-10.6 7626053143) eGFR Calculation mL/min/1.73m2 (Non-) (test code = 2141211086) eGFR Calculation mL/min/1.73m2 () (test code = 9201252516) MARCELLE (test code = MARCELLE) Association of [...] tests). Lab Interpretation Abnormal (test code = 70511-9) [facility] Function Panel (ALB, T.PRO, BILI T, BU/BC, ALT, AST, ALK PHOS)2019-08-18 14:48:00 Test Item Value Reference Range Interpretation Comments TOTAL BILI (test code = 4871748409) 0.4 mg/dL 0.1-1.1 BILI UNCON (test code = 0306139026) 0.4 mg/dL 0.1-1.1 BILI CONJ (test code = 3845207460) 0.0 mg/dL 0-0.3 T PROTEIN (test code = 8913014579) 8.1 g/dL 6.3-8.2 ALBUMIN (test code = 3813545939) 4.7 g/dL 3.5-5 ALK PHOS (test code = 7275205793) 74 U/L 34-122 ALTv (test code = 1742-6) 17 U/L 5-35 AST(SGOT) (test code = 4722075588) 27 U/L 13-40 Lab Interpretation (test code = Normal 59077-2) [facility] WestaPTT2020-06-11 14:46:00 Test Item Value Reference Range Interpretation Comments APTT Patient (test See_Comment H [Automat ed code = 3173-2) message] The system which generated this result transmitted reference range : 23 - 38 Seconds . The reference range was not used to interpr et this result as normal/abnormal . MARCELLE (test code = MARCELLE) The [facility] patient population mean normal value for aPTT is 30 seconds. Lab Interpretation Abnormal (test code = 06345-4) [facility] WestRAPI STREP SCREEN FOR GROUP [id number] 14:46:00 Test Item Value Reference Range Interpretation Comments Streptococcus pyogenes (group A) Negative Negative antigen (test code = 00531-2) Lab Interpretation (test code = Normal 65941-4) [facility] WestProthrombin Time (PT) / [id number] 14:43:00 Test Item Value Reference Range Interpretation Comments PROTIME PATIENT (test See_Comment [Auto mated message] code = 5964-2) The system [employer] generated this result transmitted ref erence range: 12.0 - 1 4.7 Seconds. The re ference range was not u sed to interpret this result as normal/abnor mal. INR (test code = 6301-6) Nor mal INR <1.1; Warfarin Therap eutic range 2.0 to 3. 0 or 2.5 to 3.5, dep ending upon the indica tions. Lab Interpretation (test Normal code = 27253-0) [facility] WestCOVID-19 (ID NOW RAPID TESTING)2019-08-18 14:43:00 Test Item Value Reference Range Interpretation Comments SARS-CoV-2 Rapid ID NOW Not Detected Not Detected (test code = 27933-6) MARCELLE (test code = MARCELLE) ID NOW COVID-19 Assay is an isothermal nucleic acid amplification test intended for the qualitative detection of nucleic acid from SARS-CoV-2 viral RNA in nasopharyngeal (BROTHEL KEEPER) specimens. It is used under Emergency Use [...] indicated. Lab Interpretation Normal (test code = 72195-5) [facility] WestCOMP. METABOLIC PANEL (15370)2019-07-29 03:00:00 Test Item Value Reference Range Interpretation Comments NA (test code = 141 mmol/L 135-145 8813915618) K (test code = 3.8 mmol/L 3.5-5 7039583155) CL (test code = 105 mmol/L 98-108 2660092176) CO2 TOTAL (test code = 27 mmol/L 23-31 9573839124) AGAP (test code = 2-16 9352531911) BUN (test code = 11 mg/dL 7-23 7467785868) GLUCOSE (test code = 91 mg/dL 70-110 6479204936) CREATININE (test code 0.58 mg/dL 0.5-1.04 = 9977206829) TOTAL BILI (test code 0.4 mg/dL 0.1-1.1 = 3458254182) CALCIUM (test code = 9.9 mg/dL 8.6-10.6 1525267501) T PROTEIN (test code = 7.3 g/dL 6.3-8.2 3726947545) ALBUMIN (test code = 4.5 g/dL 3.5-5 1702585417) ALK PHOS (test code = 53 U/L 34-122 2580549019) ALTv (test code = 12 U/L 5-35 1742-6) AST(SGOT) (test code = 27 U/L 13-40 4088181261) eGFR Calculation mL/min/1.73m2 (Non-) (test code = 1629670761) eGFR Calculation mL/min/1.73m2 () (test code = 4455106490) MARCELLE (test code = MARCELLE) Association of [...] or urine or abnormalities in imaging tests). [id number] 02:43:00 Test Item Value Reference Range Interpretation Comments TROPONIN I (test <0.012 See_Comment [Automated code = 1978111984) message] The system which generated this result [...] ? Lab Interpretation Normal (test code = 65728-6) [facility] WestD-[id number] 02:32:00 Test Item Value Reference Interpretation Comments Range D-DIMER (test code = See_Comment H [Autom ated 8437128930) message] The system which generated this result [...] diagnosis. Lab Interpretation Abnormal (test code = 03244-2) [facility] WITH [id number] 02:21:00 Test Item Value Reference Range Interpretation Comments WBC (test code = See_Comment H [Automated 1890-2) message] The sy stem which generated this result transmitted reference range : 4.30 - 11.10 10*3/?L. The reference range was not used to interpret this result as normal/abnormal . RBC (test code = See_Comment [Automated 392-8) message] The sy stem which generated this [...] RDW-SD (test code = 40.0 fL 39-49.9 15428-8) RDW-CV (test code = 12.5 % 12-15.5 788-0) PLT (test code = See_Comment [Automated 777-3) message] The sy stem which generated this result transmitted reference range : 166 - 358 10*3/ ?L. The reference r david was not used to interpret this result as normal/abnormal . MPV (test code = 10.4 fL 9.5-12.9 96423-6) NRBC/100 WBC (test See_Comment [Automat ed code = 3088764817) message] The system which generated this result transmitted reference range : 0.0 - 10.0 /100 WBCs. The refer ence range was not u sed to interpret th is result as normal/abnormal . NRBC x10^3 (test code <0.01 See_Comment [Auto mated = 6340823471) message] The s ystem which generated this result transmitted reference range : 10*3/?L. The reference range was not used to interpret this result as normal/abnormal . GRAN MAT (NEUT) % 58.3 % (test code = 770-8) IMM GRAN % (test code 0.80 % = 5500863350) LYMPH % (test code = 32.1 % 736-9) MONO % (test code = 6.7 % 5905-5) EOS % (test code = 1.7 % 713-8) BASO % (test code = 0.4 % 706-2) GRAN MAT x10^3(ANC) 6.48 10*3/uL 1.88-7.09 (test code = 2426528381) IMM GRAN x10^3 (test 0.09 10*3/uL 0-0.06 H code = 6948626207) LYMPH x10^3 (test code 3.57 10*3/uL 1.32-3.29 H = 731-0) MONO x10^3 (test code 0.75 10*3/uL 0.33-0.92 = 742-7) EOS x10^3 (test code = 0.19 10*3/uL 0.03-0.39 711-2) BASO x10^3 (test code 0.04 10*3/uL 0.01-0.07 = 704-7) Lab Interpretation Abnormal (test code = 73348-9) [facility]XR CHEST 2 [id number] 02:02:09 No acute cardiopulmonary process. Preliminary Report Dictated by Resident: Carlos Guzman MD., have reviewed this study and agree with the abovereport.EXAM: XR CHEST 2 VW CLINICAL INDICATION: cough and SOB COMPARISON: 09/21/2017 TECHNIQUE: Frontal and lateral views of the chest wereobtained. FINDINGS: No focal consolidation, pleural effusion, or pneumothorax. The cardiac silhouette is normal in size. No acute osseous abnormality. [facility], Radiant Results Inft User - 07/28/2019 9:03 [...] reviewed this study and agree with the abovereport.[facility] COVID-19 (ID NOW RAPID TESTING)2019-07-28 23:48:00 Test Item Value Reference Range Interpretation Comments SARS-CoV-2 Rapid ID NOW Not Detected Not Detected (test code = 81068-9) MARCELLE (test code = MARCELLE) ID NOW COVID-19 Assay is an isothermal nucleic acid amplification test intended for the qualitative detection of nucleic acid from SARS-CoV-2 viral RNA in nasopharyngeal (BROTHEL KEEPER) specimens. It is used under Emergency Use [...] indicated. Lab Interpretation Normal (test code = 73790-9) [facility] WestPOCT [id number] 23:19:00 Test Item Value Reference Range Interpretation Comments POCT PREG (test code = 1605) Negative On board controls acceptable with Present C Line (test code = 3574) POCT PREG LOT # (test code = 3575) [id number] POCT PREG TEST DATE (test 10/06/2020 code = 3576) Lab Interpretation (test code = Normal 65422-9) [facility] ABDOMEN PELVIS WO [id number] 01:14:52 No acute intra-abdominal process. EXAM: CT [...] lytic or sclerotic bony lesions.IMPRESSIONNo acute intra-abdominal process.[facility] Metabolic Panel (NA, K, CL, CO2, GLUCOSE, BUN, CREATININE, CA)2019-06-27 00:52:00 Test Item Value Reference Range Interpretation Comments NA (test code = 139 mmol/L 135-145 4289327366) K (test code = 4.3 mmol/L 3.5-5 1827322815) CL (test code = 103 mmol/L 98-108 3129558060) CO2 TOTAL (test code = 26 mmol/L 23-31 0222763958) AGAP (test code = 2-16 4960256359) BUN (test code = 9 mg/dL 7-23 5138599401) GLUCOSE (test code = 90 mg/dL 70-110 4123088006) CREATININE (test code 0.56 mg/dL 0.5-1.04 = 4772526772) CALCIUM (test code = 9.4 mg/dL 8.6-10.6 2911459063) eGFR Calculation mL/min/1.73m2 (Non-) (test code = 7571674050) eGFR Calculation mL/min/1.73m2 () (test code = 1023504401) MARCELLE (test code = MARCELLE) Association of [...] or urine or abnormalities in imaging tests). [facility] WestUrinalysis2020-04-20 00:46:00 Test Item Value Reference Range Interpretation Comments APPEARANCE (test code = Hazy Clear A 1324106142) COLOR (test code = Yellow Yellow 4356847236) PH (test code = 4.8-8.0 0856762569) SP GRAVITY (test code = 1.003-1.030 1190976497) GLU U QUAL (test code = Normal Normal 2513117596) BLOOD (test code = Negative Negative Interfere nce from 6944321159) ascorbic acid m ay cause false neg ative results. KETONES (test code = Negative Negative 4565013977) PROTEIN (test code = Negative Negative 2887-8) UROBILIN (test code = Normal Normal 7439520967) BILIRUBIN (test code = Negative Negative 4236262268) NITRITE (test code = Negative Negative 1569317163) LEUK WILBERT (test code = 25/uL Negative A 0117531979) RBC/HPF (test code = See_Comment [Autom ated message] 8763980558) The system [employer] generated this result transmitted ref erence range: 0 - 3 HP F. The reference range was not used to int erpret this result as normal/abnormal . WBC/HPF (test code = See_Comment H [Autom ated message] 6618383806) The system [employer] generated this result transmitted ref erence range: 0 - 5 HP F. The reference range was not used to int erpret this result as normal/abnormal . BACTERIA (test code = Few Negative A 6904674855) MUCOUS (test code = Slight Negative LPF A 9560397405) SQ EPITH (test code = See_Comment H [Auto mated message] 4816073000) The system [employer] generated this result transmitted ref erence range: <=2 HPF. The reference range was not used to int erpret this result as normal/abnormal . ASCORBIC ACID (test 20 mg/dL+ code = 1880570426) Lab Interpretation Abnormal (test code = 39167-1) [facility] WITH [id number] 00:43:00 Test Item Value Reference Range Interpretation Comments WBC (test code = See_Comment [Automated 5239-2) message] The sy stem which generated this result transmitted reference range : 4.30 - 11.10 10*3/?L. The reference range was not used to interpret this result as normal/abnormal . RBC (test code = See_Comment [Automated 079-8) message] The sy stem which generated this [...] (test code = 38.9 fL 39-49.9 L 30947-5) RDW-CV (test code = 12.1 % 12-15.5 788-0) PLT (test code = See_Comment [Automated 777-3) message] The sy stem which generated this result transmitted reference range : 166 - 358 10*3/ ?L. The reference r david was not used to interpret this result as normal/abnormal . MPV (test code = 10.1 fL 9.5-12.9 48961-0) NRBC/100 WBC (test See_Comment [Automat ed code = 7271120283) message] The system which generated this result transmitted reference range : 0.0 - 10.0 /100 WBCs. The refer ence range was not u sed to interpret th is result as normal/abnormal . NRBC x10^3 (test code <0.01 See_Comment [Auto mated = 2781825254) message] The s ystem which generated this result transmitted reference range : 10*3/?L. The reference range was not used to interpret this result as normal/abnormal . GRAN MAT (NEUT) % 62.9 % (test code = 770-8) IMM GRAN % (test code 0.50 % = 7895684876) LYMPH % (test code = 28.0 % 736-9) MONO % (test code = 7.0 % 5905-5) EOS % (test code = 1.1 % 713-8) BASO % (test code = 0.5 % 706-2) GRAN MAT x10^3(ANC) 5.81 10*3/uL 1.88-7.09 (test code = 3232030893) IMM GRAN x10^3 (test 0.05 10*3/uL 0-0.06 code = 7547661897) LYMPH x10^3 (test code 2.59 10*3/uL 1.32-3.29 = 731-0) MONO x10^3 (test code 0.65 10*3/uL 0.33-0.92 = 742-7) EOS x10^3 (test code = 0.10 10*3/uL 0.03-0.39 711-2) BASO x10^3 (test code 0.05 10*3/uL 0.01-0.07 = 704-7) Lab Interpretation Abnormal (test code = 03430-9) [facility] WestPONJ Test, [id number] 00:37:00 Test Item Value Reference Range Interpretation Comments POCT PREG (test code = 1605) Negative On board controls acceptable with Present C Line (test code = 3574) POCT PREG LOT # (test code = 3575) [id number] POCT PREG TEST DATE (test 11/06/2020 code = 3576) Lab Interpretation (test code = Normal 58907-9) [facility] URINALYSIS W/O SPECIFIC [id number] 18:32:00 Test Item Value Reference Range Interpretation [...] = 3257) about 250 Negative - Negative [facility] URINALYSIS W/O SPECIFIC [id number] 18:32:00 Test Item Value Reference Range Interpretation [...] = 3257) about 250 Negative - Negative [facility] WestUrinalysis2020-02-12 20:00:00 Test Item Value Reference Range Interpretation Comments APPEARANCE (test code = Clear Clear 5635784714) COLOR (test code = Straw Yellow A 1330331687) PH (test code = 4.8-8.0 6175970584) SP GRAVITY (test code = 1.003-1.030 6151803014) GLU U QUAL (test code = Normal Normal 1651382587) BLOOD (test code = Negative Negative 5172481042) KETONES (test code = Negative Negative 8542592463) PROTEIN (test code = Negative Negative 2887-8) UROBILIN (test code = Normal Normal 1504951146) BILIRUBIN (test code = Negative Negative 3030308887) NITRITE (test code = Negative Negative 6449297798) LEUK WILBERT (test code = Negative Negative 6581187002) RBC/HPF (test code = See_Comment [Autom ated message] 0452648825) The system [employer] generated this result transmitted ref erence range: 0 - 3 HP F. The reference range was not used to int erpret this result as normal/abnormal . WBC/HPF (test code = <1 See_Comment [Autom ated message] 2624495287) The system [employer] generated this result transmitted ref erence range: 0 - 5 HP F. The reference range was not used to int erpret this result as normal/abnormal . BACTERIA (test code = Negative Negative 9265487458) SQ EPITH (test code = HPF 1162487125) Lab Interpretation (test Abnormal code = 93100-4) [facility] - DRUG SCREEN [id number] 19:43:00 Test Item Value Reference Range Interpretation Comments BENZO U (test code = Negative Negative 8045270105) VALERIE U (test code = Negative Negative 2981959562) AMPHET (test code = Negative Negative 4810056929) THC (test code = Negative Negative 1337976198) METHADONE (test code = Negative Negative 0114420926) Meth U (test code = Negative Negative 7502203819) OPIATES (test code = Negative Negative 7412323336) Cocaine Metabolite (test Negative Negative code = 0864468896) PROPOXY (test code = Negative Negative 5408975156) Tric U (test code = Negative Negative 5704869557) PCP (test code = Negative Negative 7913196982) OXYCOD (test code = Negative Negative 0542110058) MARCELLE (test code = MARCELLE) Urine Drug [...] testing). Lab Interpretation (test Normal code = 77630-3) [facility] WestPOCT [id number] 19:21:00 Test Item Value Reference Range Interpretation Comments POCT PREG (test code = 1605) negative On board controls acceptable with present C Line (test code = 3574) POCT PREG LOT # (test code = [id number]) POCT PREG TEST DATE (test code = 3576) Lab Interpretation (test code = Normal 58817-7) [facility] WestComplete Metabolic [id number] 18:07:00 Test Item Value Reference Range Interpretation Comments NA (test code = 141 mmol/L 135-145 1936479967) K (test code = 4.3 mmol/L 3.5-5 1706095498) CL (test code = 104 mmol/L 98-108 2456203732) CO2 TOTAL (test code = 25 mmol/L 23-31 3050265355) AGAP (test code = 2-16 1876365904) BUN (test code = 13 mg/dL 7-23 0823633478) GLUCOSE (test code = 95 mg/dL 70-110 4111698456) CREATININE (test code = 0.68 mg/dL 0.5-1.04 2537285157) TOTAL BILI (test code = 0.3 mg/dL 0.1-1.8 6339588704) CALCIUM (test code = 10.2 mg/dL 8.6-10.6 8044193060) T PROTEIN (test code = 7.6 g/dL 6.3-8.2 6139702096) ALBUMIN (test code = 5.1 g/dL 3.5-5 H 5669943108) ALK PHOS (test code = 79 U/L 34-122 8375147283) ALTv (test code = 13 U/L 5-35 1742-6) AST(SGOT) (test code = 21 U/L 13-40 9392595132) eGFR Calculation mL/min/1.73m2 (Non-) (test code = 1055412837) eGFR Calculation mL/min/1.73m2 () (test code = 8694281296) MARCELLE (test code = MARCELLE) Association of [...] tests). Lab Interpretation Abnormal (test code = 03496-4) [facility] WestLipase, [id number] 18:07:00 Test Item Value Reference Range Interpretation Comments LIPASE (test code = 5299980851) 44 U/L 0-220 Lab Interpretation (test code = Normal 84520-2) [facility] WestCB WITH [id number] 17:57:00 Test Item Value Reference Range Interpretation Comments WBC (test code = See_Comment [Automated message] 6690-2) The system [employer] generated this result transmitted ref erence range: 4.30 - 1 1.10 10*3/?L. The re ference range was not u sed to interpret this result as normal/abnor mal. RBC (test code = See_Comment [Automated message] 529-8) The system [employer] generated this result transmitted ref erence range: [...] RDW-SD (test code 40.2 fL 39-49.9 = 80358-4) RDW-CV (test code 12.4 % 12-15.5 = 788-0) PLT (test code = See_Comment [Automated message] 777-3) The system [employer] generated this result transmitted ref erence range: 166 - 35 8 10*3/?L. The re ference range was not u sed to interpret this result as normal/abnor mal. MPV (test code = 10.4 fL 9.5-12.9 40435-9) NRBC/100 WBC (test See_Comment [Automat ed message] code = 9447147430) The syste [employer] which generated this result transmitted ref erence range: 0.0 - 10 .0 /100 WBCs. The refer ence range was not u sed to interpret this result as normal/abnor mal. NRBC x10^3 (test <0.01 See_Comment [Automated message] code = 2100290444) The syste m which generated this result transmitted ref erence range: 10*3/?L. The reference range was not used to interpr et this result as normal/abnormal . GRAN MAT (NEUT) % 62.6 % (test code = 770-8) IMM GRAN % (test 0.60 % code = 9722396889) LYMPH % (test code 27.3 % = 736-9) MONO % (test code 7.2 % = 5905-5) EOS % (test code = 1.9 % 713-8) BASO % (test code 0.4 % = 706-2) GRAN MAT 5.98 10*3/uL 1.88-7.09 x10^3(ANC) (test code = 5819891916) IMM GRAN x10^3 0.06 10*3/uL 0-0.06 (test code = 1851445802) LYMPH x10^3 (test 2.61 10*3/uL 1.32-3.29 code = 731-0) MONO x10^3 (test 0.69 10*3/uL 0.33-0.92 code = 742-7) EOS x10^3 (test 0.18 10*3/uL 0.03-0.39 code = 711-2) BASO x10^3 (test 0.04 10*3/uL 0.01-0.07 code = 704-7) [facility] 1/2 AG-AB WITH [id number] 08:33:00 Test Item Value Reference Range Interpretation Comments HIV Negative Negative Semi-quantitative (test code = 37905-2) MARCELLE (test code = Non-reactive for HIV-1 MARCELLE) antigen and HIV-1/HIV-2 antibodies. ?No laboratory evidence of HIV infection. ?Repeat in 2-4 weeks if acute HIV infection is suspected. [facility] 1/2 AG-AB WITH [id number] 08:33:00 Test Item Value Reference Range Interpretation Comments HIV Negative Negative Semi-quantitative (test code = 72940-6) MARCELLE (test code = Non-reactive for HIV-1 MARCELLE) antigen and HIV-1/HIV-2 antibodies. ?No laboratory evidence of HIV infection. ?Repeat in 2-4 weeks if acute HIV infection is suspected. [facility]
[2021-02-25] MEDS ORDERED: NA CHLORIDE 0.9% 1,000 ML ONE (02:34)
[2021-02-25] MEDS ORDERED: LORazepam 2 MG/ML VIAL ONE (02:34)
--- NOTE | 2021-02-25 03:54 | EDPHYS ---
Physician Documentation [facility] Name: Mile Wang Age: 26 yrs Sex: Female : 1995 Arrival Date: 02/25/2021 Time: 01:59 Bed 4 Private MD: ED Physician Samir Carter HPI: 02/25 02:40 This 26 yrs old Female presents to ER via Wheelchair with complaints of Probable mh7 Seizure. 02:40 The patient presents with a history of multiple seizures, a total of 5. Character of mh7 seizure(s): Loss of consciousness: the patient did not lose consciousness, Motor activity: generalized, shaking all over, Incontinence: none, Apnea: the patient did not experience apnea, Circulation: the patient did not experience evidence of pulse disturbance, Eye movements: the eyes did not move. Seizure onset: today. Context: the seizure(s) was witnessed, by co-worker(s), occurred at work, occurred while the patient was sitting, Contributing factors: unknown. Seizure Hx: Original onset: longstanding. Associated injury: The patient did not suffer any apparent associated injury. Current symptoms: Vaguely states that she felt like a seizure is about to start. The patient has experienced similar episodes in the past, chronically. The patient has been recently seen at the [facility] Emergency Department, last week. 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 - Social history:: Smoking status: Patient denies any tobacco usage or history of. ROS: 02:40 Constitutional: Negative for fever, chills, and weight loss, Eyes: Negative for injury, mh7 pain, redness, and discharge, ENT: Negative for injury, pain, and discharge, Neck: Negative for injury, pain, and swelling, Cardiovascular: Negative for chest pain, palpitations, and edema, Respiratory: Negative for shortness of breath, cough, wheezing, and pleuritic chest pain, Abdomen/GI: Negative for abdominal pain, nausea, vomiting, diarrhea, and constipation, Back: Negative for injury and pain, : Negative for injury, bleeding, discharge, and swelling, MS/Extremity: Negative for injury and deformity, Skin: Negative for injury, rash, and discoloration, Psych: Negative for depression, anxiety, suicide ideation, homicidal ideation, and hallucinations, Allergy/Immunology: Negative for hives, rash, and allergies, Endocrine: Negative for neck swelling, polydipsia, polyuria, polyphagia, and marked weight changes, Hematologic/Lymphatic: Negative for swollen nodes, abnormal bleeding, and unusual bruising. Exam: 02:40 Head/Face: Normocephalic, atraumatic. Eyes: Pupils equal round and reactive to light, mh7 extra-ocular motions intact. Lids and lashes normal. Conjunctiva and sclera are non-icteric and not injected. Cornea within normal limits. Periorbital areas with no swelling, redness, or edema. ENT: Nares patent. No nasal discharge, no septal abnormalities noted. Tympanic membranes are normal and external auditory canals are clear. Oropharynx with no redness, swelling, or masses, exudates, or evidence of obstruction, uvula midline. Mucous membranes moist. Neck: Trachea midline, no thyromegaly or masses palpated, and no cervical lymphadenopathy. Supple, full range of motion without nuchal rigidity, or vertebral point tenderness. No Meningismus. Chest/axilla: Normal chest wall appearance and motion. Nontender with no deformity. No lesions are appreciated. Cardiovascular: Regular rate and rhythm with a normal S1 and S2. No gallops, murmurs, or rubs. Normal PMI, no JVD. No pulse deficits. Respiratory: Lungs have equal breath sounds bilaterally, clear to auscultation and percussion. No rales, rhonchi or wheezes noted. No increased work of breathing, no retractions or nasal flaring. Abdomen/GI: Soft, non-tender, with normal bowel sounds. No distension or tympany. No guarding or rebound. No evidence of tenderness throughout. Back: No spinal tenderness. No costovertebral tenderness. Full range of motion. Skin: Warm, dry with normal turgor. Normal color with no rashes, no lesions, and no evidence of cellulitis. MS/ Extremity: Pulses equal, no cyanosis. Neurovascular intact. Full, normal range of motion. Neuro: Awake and alert, GCS 15, oriented to person, place, time, and situation. Cranial nerves II-XII grossly intact. Motor strength 5/5 in all extremities. Sensory grossly intact. Cerebellar exam normal. Normal gait. 02:40 Constitutional: The patient appears in no acute distress, alert, awake, anxious. 02:40 Psych: Behavior/mood is cooperative, anxious, Affect is animated, Oriented to person, place, time, Patient has no thoughts/intents to harm self or others. Judgement / Insight is normal. Memory is normal. Delusions/hallucinations are not present. Vital Signs: 01:59 BP 136 / 87; Pulse 104; Resp 25 S; Temp 99.8(O); Pulse Ox 98% on R/A; Weight 83.91 kg 5 (R); Height 5 ft. 3 in. (160.02 cm) (R); Pain 7/10; 02:16 BP 126 / 74; Pulse 104; Resp 20; Pulse Ox 98% on R/A; tw5 03:45 BP 127 / 67; Pulse 97; Resp 14 S; Pulse Ox 100% on R/A; as6 01:59 Body Mass Index 32.77 (83.91 kg, 160.02 cm) 5 MDM: 03:51 Differential diagnosis: seizure, Pseudoseizures, conversion disorder, anxiety. Data [facility] reviewed: vital signs, nurses notes, old medical records. Data interpreted: Pulse oximetry: on room air is 100 %. Interpretation: normal. Counseling: I had a detailed discussion with the patient and/or guardian regarding: the historical points, exam findings, and any diagnostic results supporting the discharge/admit diagnosis, the need for outpatient follow up, a neurologist, to return to the emergency department if symptoms worsen or persist or if there are any questions or concerns that arise at home. Response to treatment: the patient's symptoms have resolved after treatment, the patient's blood pressure is in an acceptable range, mental status has returned to baseline, the patient no longer shows bradycardia, the patient is not short of breath, the patient is not tachycardic, the patient's pain is gone, the patient's temperature has normalized, the patient is now symptom free, patient is well hydrated. 03:53 Patient medically screened. [facility] 02/25 02:30 Order name: Saline Lock; Complete Time: 02:46 [facility] Administered Medications: 02:46 Drug: NS 0.9% 1000 ml Route: IV; Rate: 1000 ml; Site: right hand; 03:46 Follow up: Response: No adverse reaction; IV Status: Completed infusion; IV Intake: as6 1000ml 02:46 Drug: Ativan (LORazepam) 1 mg Route: IVP; Site: right hand; 03:46 Follow up: Response: No adverse reaction as6 Disposition Summary: 02/25/21 03:53 Discharge Ordered Location: Home [facility] Problem: an acute exacerbation [facility] Symptoms: have improved [facility] Condition: Stable [facility] Diagnosis - Other seizures [facility] Followup: [facility] - With: Private Physician - When: 1 - 2 days - Reason: Worsening of condition, Recheck today's complaints, Continuance of care, Re-evaluation by your physician Followup: [facility] - With: Cristian Fam MD - When: 1 - 2 days - Reason: Worsening of condition, Recheck today's complaints Discharge Instructions: - Discharge Summary Sheet [facility] - Seizure, Adult, [id number] [facility] Forms: - Medication Reconciliation Form [facility] - Thank You Letter [facility] - Antibiotic Education [facility] - Work release form [facility] - Prescription Opioid Use [facility] Signatures: Samir Carter MD MD 7 Earnestine Mcdonald 5 Natanael Quezada RN as6 Corrections: (The following items were deleted from the chart) 02:14 02:12 PSHx: Tonsillectomy; 02:14 02:12 PSHx: Cholecystectomy;
--- NOTE | 2021-02-25 03:54 | ER ---
Nurse's Notes [facility] Name: Mile Wang Age: 26 yrs Sex: Female : 1995 Arrival Date: 02/25/2021 Time: 01:59 Bed 4 Private MD: Diagnosis: Other seizures Presentation: 02/25 02:06 Chief complaint: Friend and/or Co-Worker states: " She was sitting in the chair when tw5 she started to have a seizure in the chair, last week she had 5 seizures before we were able to get her into a wheelchair.". 02:06 Method Of Arrival: Wheelchair tw5 02:11 Coronavirus screen: Vaccine status: Patient reports receiving the 2nd dose of the covid tw5 vaccine. Doesn't know which one " I got it at [facility]". Ebola Screen: Patient negative for fever greater than or equal to 101.5 degrees Fahrenheit, and additional compatible Ebola Virus Disease symptoms Patient denies exposure to infectious person. Patient denies travel to an Ebola-affected area in the 21 days before illness onset. Initial Sepsis Screen: Does the patient meet any 2 criteria? No. Patient's initial sepsis screen is negative. Does the patient have a suspected source of infection? No. Patient's initial sepsis screen is negative. Risk Assessment: Do you want to hurt yourself or someone else? Patient reports no desire to harm self or others. Onset of symptoms was February 25, 2021 at 01:45. 02:11 Acuity: BAIRON 3 tw5 Triage Assessment: 02:14 General: Appears in no apparent distress. Behavior is cooperative, anxious. Pain: tw5 Complains of pain in "Headache" Patient states she usually get headaches after a seizure Pain currently is 7 out of 10 on a pain scale. 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 - Social history:: Smoking status: Patient denies any tobacco usage or history of. Screenin:16 Abuse screen: Denies threats or abuse. Denies injuries from another. Nutritional tw5 screening: No deficits noted. Tuberculosis screening: No symptoms or risk factors identified. Fall Risk Fall in past 12 months (25 points). Secondary diagnosis (15 points) IV access (20 points). Ambulatory Aid- None/Bed Rest/Nurse Assist (0 pts). Gait- Impaired (20 pts.). Mental Status- Overestimates/Forgets Limitations (15 pts.). Assessment: 02:08 General: Behavior is agitated, anxious, seizure began. Patient was able to turn herself tw5 to the side. Sezuire appeared to have stopped after 1 min. . Respiratory: Airway is patent Trachea midline Respiratory pattern is hypoventilation coughing. 02:11 General: Patient was able to make eye contact during seizure. . Neuro: Level of tw5 Consciousness is awake, alert, obeys commands, Oriented to person, place, time, situation. 02:47 General: Appears in no apparent distress. tw5 03:45 Reassessment: Patient states feeling better. as6 Vital Signs: 01:59 BP 136 / 87; Pulse 104; Resp 25 S; Temp 99.8(O); Pulse Ox 98% on R/A; Weight 83.91 kg [facility] (R); Height 5 ft. 3 in. (160.02 cm) (R); Pain 7/10; 02:16 BP 126 / 74; Pulse 104; Resp 20; Pulse Ox 98% on R/A; tw5 03:45 BP 127 / 67; Pulse 97; Resp 14 S; Pulse Ox 100% on R/A; as6 01:59 Body Mass Index 32.77 (83.91 kg, 160.02 cm) 5 ED Course: 01:59 Patient arrived in ED. 5 02:05 Earnestine Mcdonald is Primary Nurse. tw5 02:08 Samir Carter MD is Attending Physician. 7 02:12 Triage completed. tw5 02:14 Arm band placed on right wrist. tw5 02:16 Patient has correct armband on for positive identification. Placed in gown. Bed in low tw5 position. Side rails up X2. Security at bedside. Seizure precautions initiated. auditor tax on. Pulse ox on. NIBP on. Door closed. Noise minimized. Moved to private room. Warm blanket given. Verbal reassurance given. 02:47 Inserted saline lock: 24 gauge in right hand, using aseptic technique. tw5 03:53 Cristian Fam MD is Referral Physician. [facility] 04:07 No provider procedures requiring assistance completed. IV discontinued, intact, tw5 bleeding controlled, No redness/swelling at site. Pressure dressing applied. Administered Medications: 02:46 Drug: NS 0.9% 1000 ml Route: IV; Rate: 1000 ml; Site: right hand; tw5 03:46 Follow up: Response: No adverse reaction; IV Status: Completed infusion; IV Intake: as6 1000ml 02:46 Drug: Ativan (LORazepam) 1 mg Route: IVP; Site: right hand; tw 03:46 Follow up: Response: No adverse reaction as6 Intake: 03:46 IV: 1000ml; Total: 1000ml. as6 Outcome: 03:53 Discharge ordered by . 7 04:07 Discharged to home ambulatory, with family. tw 04:07 Condition: improved 04:07 Discharge instructions given to patient, Instructed on discharge instructions, follow up and referral plans. Demonstrated understanding of instructions, follow-up care. 04:08 Patient left the ED. Signatures: Samir Carter MD MD 7 Earnestine Mcdonald 5 Natanael Quezada RN RN as6 April Garza RN RN 5 Corrections: (The following items were deleted from the chart) 02:14 02:12 PSHx: Tonsillectomy; 02:14 02:12 PSHx: Cholecystectomy; tw tw
[2021-02-25 04:22] VITALS: TEMP 99.8
[2021-02-25 04:26] VITALS: BP 127/67; O2SAT 100
== END 2021-02-25 04:08 | disposition home or self-care (01) ==
LOC: ER 01:51
DX: G40.89 Other seizures (principal); F31.9 Bipolar disorder, unspecified; Z88.1 Allergy status to other antibiotic agents; Z88.5 Allergy status to narcotic agent; Z88.8 Allergy status to other drugs, medicaments and biological substances
CPT/HCPCS: 96361; 96374; 99285; J7030

== ENCOUNTER 2021-02-27 14:36 | Emergency (ER) | payer OTHER ==
--- OUTSIDE RECORDS SUMMARY | 2021-02-27 14:48 | XMS REPORT | Continuity of Care Document ---
:1995 Author Organization [facility] t Address [address] [place] [address] Care Team Providers Name Role Phone Asked, [...] Unavailable MISAEL PENNINGTON Attending Clinician Unavailable Brad GAITAN Elvia Attending Clinician ELVIA SALINAS Attending Clinician Unavailable Joby Ramírez MD Attending Clinician JOBY RAMÍREZ Attending Clinician Unavailable Doctor Unassigned, Name Attending Clinician Unavailable Rudy MCGOWAN, A Attending Clinician Unavailable Gabriel TAYLOR, S Attending Clinician Piyush RIOS Attending Clinician Unavailable Only, Test Attending Clinician Unavailable Sandra Galvin MD Attending Clinician Yulia Cardenas Attending Clinician Singer BIRMINGHAM Attending Clinician Irma BURRP, C Attending Clinician Herb SOLIS Attending Clinician Unavailable Demian Simon DO Attending Clinician Visit, Nurse Attending Clinician Unavailable Bryn Hernandez Attending Clinician Bryn KATZ Attending Clinician Unavailable AGUS Attending Clinician Unavailable Kulwinder MCGOWAN, Doug Attending Clinician Unavailable NICK Attending Clinician Unavailable Nick GAITAN Attending Clinician Moody PIMENTEL Attending Clinician Unavailable Ciara BIRMING[place]AM I Attending Clinician TESHA Admitting Clinician Unavailable Piyush Rios MD Admitting Clinician HIEN Admitting Clinician Unavailable AGUS Admitting Clinician Unavailable NICK Admitting Clinician Unavailable Moody PIMENTEL Admitting Clinician Unavailable Payers Payer Name Policy Type Policy Number Effective Date Expiration Date [facility] [id number] [address] [facility] MEDICAID 00:00:00 Advance Directives Directive Decision Effective Termination Comments Source Date Date Healthcare Agents on N/A [facility] ersity FileNameRelationshipHealthcare [facility] Agent [facility]Commun[facility]MotherHealth [facility] [phone] (Mobile) Problems Condition Condition Condition Status Onset Resolution Last Treating Co mments Source Name Details Category Date Date Treatment Clinician Date Frequent Frequent Disease Active Unive rs UTI UTI 8-03 ity of 00:: [address] Seizures Seizures Disease Active Unive rs 7-26 ity of 00:: [address] UTI UTI Disease Active Univers symptoms symptoms 4-01 ity of 00:00: [address] Other Other Disease Active Univers general general 4-01 [place] of counseling [place] and advice and advice 00 Sd dical for [facility] contracept contracept billy billy management management Pain Pain Disease Active Univers pelvic pelvic 4-16 ity of 00:: [address] Routine Routine Disease Active Univers 2-25 it y of follow-up follow-up 00:00: Gilma riddle [address] [place] [address] Abnormal Abnormal Disease Active Unive rs EKG EKG 8-02 ity of 00:00: [address] History of History of Disease Active U nivers seizure seizure 6-13 ity of 00:00: [place] 00 Medical Branch Over Over Disease Active Univers weight weight 6-13 ity of 00:00: [place] 00 Medical Branch Vaginal Vaginal Disease Active Univers discharge discharge 7-03 ity of 00:00: [place] 00 Medical Branch Chlamydia Chlamydia Disease Active Uni vers 5-10 ity of 00:00: [place] [facility] Bipolar Bipolar Disease Active Univers affective affective 5-09 [place] of disorder, disorder, [place] remission 00 [place] status status Branch unspecifie unspecifie d d Seizure Seizure Disease Active 2015-03 Overview: Univ ers disorder disorder - Formattin ity of 00:00: g of this [...] Medical s Branch DOXYCYCL DRUG Active Other-Cmnt 2019-0 Univ ers INE INGREDI 2-12 ity of 00:00: [place] 00 Medical Branch TRAMADOL DRUG Active Other-Cmnt 2019-0 Univ ers INGREDI 2-12 ity of 00:00: [place] 00 Medical Branch DOXYCYCL Allergy Active High Hives 2019-[address] [facility] TRAMADOL Allergy Active Other 2019-[address] [facility] Social History Social Habit Start Date Stop Date Quantity Comments Source Exposure to Not sure [facility] SARS-CoV-2 (event) Medica l Branch Alcohol intake 2020-11-26 2020-11-26 0 /d [facility] 00:00:00 00:00:00 Medical Branch Tobacco use and 2015-12-21 2015-12-21 Never used [facility] exposure 00:00:00 00:00:00 [facility] Branch Sex Assigned At [birth year] [facility] 00:00:00 00:00:00 Medical Branch Smoking Status Start Date Stop Date Source Never smoker [facility] Medications Ordered Filled Start Stop Current Ordering Indication Dosage Frequency Signature Comments Components Source Medication Medication Date Date Medication? Clinician (SIG) Name Name lamoTRIgine 2020-03 Yes [id number] Take 4 by Univers 25 mg 0-22 mouth BID. ity of disintegrat 00:00: [place] ing tablet 00 Medical Branch lamoTRIgine 2020-03 Yes [id number] Take 4 by Univers 25 mg 0-22 mouth BID. ity of disintegrat 00:00: [place] ing tablet 00 Medical Branch lamoTRIgine 2020-03 Yes [id number] Take 4 by Univers 25 mg 0-22 mouth BID. ity of disintegrat 00:00: [place] ing tablet 00 Medical Branch lamoTRIgine Yes [id number] Take 3 by Univers 25 mg 9-20 mouth BID ity of disintegrat 00:00: [place] 14 [place] tablet 00 days. When Med ical prescripti Branch on completes. lamoTRIgine 2020- No [id number] Take 3 by Univers 25 mg 9-20 10-22 mouth BID ity of disintegrat 00:00: 00:00 for 14 [place] ing tablet 00 :00 days. When Med ical prescripti Branch on completes. trospium 20 2020-0 Yes [id number] 20mg Take 1 Univers mg tablet 8-26 tablet by ity o f 00:00: mouth [place] (two) Medical times Branch daily. trospium 20 2020-0 Yes [id number] 20mg Take 1 Univers mg tablet 8-26 tablet by ity o f 00:00: mouth [place] (two) Medical times Branch daily. trospium 20 2020-0 Yes [id number] 20mg Take 1 Univers mg tablet 8-26 tablet by ity o f 00:00: mouth [place] (two) Medical times Branch daily. trospium 20 2020-0 Yes [id number] 20mg Take 1 Univers mg tablet 8-26 tablet by ity o f 00:00: mouth [place] (two) Medical times Branch daily. trospium 20 2020-0 Yes [id number] 20mg Take 1 Univers mg tablet 8-26 tablet by ity o f 00:00: mouth [place] (two) Medical times Branch daily. trospium 20 2020-0 Yes [id number] 20mg Take 1 Univers mg tablet 8-26 tablet by ity o f 00:00: mouth [place] (two) Medical times Branch daily. trospium 20 2020-0 Yes [id number] 20mg Take 1 Univers mg tablet 8-26 tablet by ity o f 00:00: mouth [place] (two) Medical times Branch daily. trospium 20 2020-0 Yes [id number] 20mg Take 1 Univers mg tablet 8-26 tablet by ity o f 00:00: mouth [place] (two) Medical times Branch daily. lamoTRIgine 2020-0 2020- No [id number] 25mg Take 1 Univers 25 mg 8-13 08-21 tablet by ity of tablet 00:00: 04:59 mouth [place] 00 :00 every Medical evening Branch for 7 days. lamoTRIgine 2020-0 2020- No [id number] 25mg Take 1 Univers 25 mg 8-13 08-21 tablet by ity of tablet 00:00: 04:59 mouth [place] 00 :00 every Medical evening Branch for 7 days. lamoTRIgine 2020- No [id number] 25mg Take 1 Univers 25 mg 8-13 08-21 tablet by ity of tablet 00:00: 04:59 mouth [place] 00 :00 every Medical evening Branch for 7 days. lamoTRIgine 2020- No [id number] 25mg Take 1 Univers 25 mg 8-13 08-21 tablet by ity of tablet 00:00: 04:59 mouth [place] 00 :00 every Medical evening Branch for 7 days. lamoTRIgine 2020- No [id number] 25mg Take 1 Univers 25 mg 8-13 08-21 tablet by ity of tablet 00:00: 04:59 mouth [place] 00 :00 every Medical evening Branch for 7 days. lamoTRIgine 2020- No [id number] 25mg Take 1 Univers 25 mg 8-13 08-21 tablet by ity of tablet 00:00: 04:59 mouth [place] 00 :00 every Medical evening Branch for 7 days. lamoTRIgine 2020- No [id number] 25mg Take 1 Univers 25 mg 8-13 08-21 tablet by ity of tablet 00:00: 04:59 mouth [place] 00 :00 every Medical evening Branch for 7 days. lamoTRIgine 2020- No [id number] 25mg Take 1 Univers 25 mg 8-13 08-21 tablet by ity of tablet 00:00: 04:59 mouth [place] 00 :00 every Medical evening Branch for 7 days. lamoTRIgine 2020- No [id number] 25mg Take 1 Univers 25 mg 8-13 08-21 tablet by ity of tablet 00:00: 04:59 mouth [place] 00 :00 every Medical evening Branch for 7 days. lamoTRIgine 2020- No [id number] 25mg Take 1 Univers 25 mg 8-13 08-21 tablet by ity of tablet 00:00: 04:59 mouth [place] 00 :00 every Medical evening Branch for 7 days. lamoTRIgine 2020- No [id number] 25mg Take 1 Univers 25 mg 8-13 08-21 tablet by ity of tablet 00:00: 04:59 mouth [place] 00 :00 every Medical evening Branch for 7 days. gadoteridol 2020- No [id number] .2mL/kg 0.2 mL/kg, Univers (PROHANCE-2 10-18 Intravenou i ty of 0 mL) 18:45: 18:46 s, ONCE, 1 [place] injection 00 :00 dose, [facility] Medic al 0.2 mL/kg 10/18/20 at [facility] 1345, Routine metroNIDAZO Yes [id number] 500mg Take 1 Univers LE (FLAGYL) 10-15 tablet by ity of 500 mg 00:00: mouth 2 [place] tablet 00 (two) Medical times Branch daily. metroNIDAZO Yes [id number] 500mg Take 1 Univers LE (FLAGYL) 10-15 tablet by ity of 500 mg 00:00: mouth 2 [place] tablet 00 (two) Medical times Branch daily. metroNIDAZO 2020- No [id number] 500mg Take 1 Univers LE (FLAGYL) 10-15 tablet by it y of 500 mg 00:00: 00:00 mouth 2 [place] tablet 00 :00 (two) Medical times Branch daily. metroNIDAZO 2020- No [id number] 500mg Take 1 Univers LE (FLAGYL) 10-15 tablet by it y of 500 mg 00:00: 00:00 mouth 2 [place] tablet 00 :00 (two) Medical times Branch daily. metroNIDAZO 2020- No [id number] 500mg Take 1 Univers LE (FLAGYL) 10-15 tablet by it y of 500 mg 00:00: 00:00 mouth 2 [place] tablet 00 :00 (two) Medical times Branch daily. metroNIDAZO 2020- No [id number] 500mg Take 1 Univers LE (FLAGYL) 10-15 tablet by it y of 500 mg 00:00: 04:59 mouth 2 [place] tablet 00 :00 (two) Medical times Branch daily for 7 days. metroNIDAZO 2020- No [id number] 500mg Take 1 Univers LE (FLAGYL) 10-15 tablet by it y of 500 mg 00:00: 00:00 mouth 2 [place] tablet 00 :00 (two) Medical times Branch daily for 7 days. azithromyci 2020- No [id number] 1000mg Take 2 Univers n 8-05 08-06 tablets by ity of (ZITHROMAX) 00:00: 04:59 mouth once [place] 500 mg 00 :00 now for 1 Medical tablet dose. Branch LITHIUM 2020-0 Yes Take by [employer] [facility] CARBONATE 8-03 mouth. ity of ORAL 21:04: [place] [address] Medical [place] busPIRone 2020-0 Yes 10mg Take 10 mg Un aubree 10 mg 8-03 by mouth 2 ity of tablet 21:04: (two) [place] 25 times Medical daily. Branch LITHIUM 2020-0 Yes Take by Univer s CARBONATE 8-03 mouth. ity of ORAL 21:04: [place] [address] Medical [place] busPIRone 2020-0 Yes 10mg Take 10 mg Un a[place] 10 mg 8-03 by mouth 2 ity of tablet 21:04: (two) [place] 25 times Medical daily. Branch LITHIUM 2020-0 Yes Take by Univer s CARBONATE 8-03 mouth. ity of ORAL 21:04: [address] busPIRone 2020-0 Yes 10mg Take 10 mg Un [place] 10 mg 8-03 by mouth 2 ity of tablet 21:04: (two) [place] 25 times Medical daily. Branch LITHIUM 2020-0 Yes Take by [employer] CARBONATE 8-03 mouth. ity of ORAL 21:04: [place] [address] Medical [place] busPIRone 2020-0 Yes 10mg Take 10 mg Un [place] 10 mg 8-03 by mouth 2 ity of tablet 21:04: (two) [place] 25 times Medical daily. Branch LITHIUM 2020-0 Yes Take by [employer] CARBONATE 8-03 mouth. ity of ORAL 21:04: [place] [address] Medical [place] busPIRone 2020-0 Yes 10mg Take 10 mg Un [place] 10 mg 8-03 by mouth 2 ity of tablet 21:04: (two) [place] 25 times Medical daily. Branch LITHIUM 2020-0 Yes Take by [employer] CARBONATE 8-03 mouth. ity of ORAL 21:04: [place] [address] Medical [place] busPIRone 2020-0 Yes 10mg Take 10 mg Un [place] 10 mg 8-03 by mouth 2 ity of tablet 21:04: (two) [place] 25 times Medical daily. Branch LITHIUM 2020-0 Yes Take by Univer s CARBONATE 8-03 mouth. ity of ORAL 21:04: [place] 25 Medical Branch busPIRone 0 Yes 10mg Take 10 mg Un [place] 10 mg 8-03 by mouth 2 ity of tablet 21:04: (two) [place] 25 times Medical daily. Branch LITHIUM 2020-0 Yes Take by Univer s CARBONATE 8-03 mouth. ity of ORAL 21:04: Medical Branch busPIRone 0 Yes 10mg Take 10 mg Un [place] 10 mg 8-03 by mouth 2 ity of tablet 21:04: (two) [place] 25 times Medical daily. Branch LITHIUM 2020-0 Yes Take by Univer s CARBONATE 8-03 mouth. ity of ORAL 21:04: Medical [place] busPIRone 0 Yes 10mg Take 10 mg Un [place] 10 mg 8-03 by mouth 2 ity of tablet 21:04: (two) [place] 25 times Medical daily. Branch LITHIUM 2020-0 Yes Take by Univer s CARBONATE 8-03 mouth. ity of ORAL 21:04: Medical Branch busPIRone 0 Yes 10mg Take 10 mg [place] 10 mg 8-03 by mouth 2 ity of tablet 21:04: (two) [place] 25 times Medical daily. Branch LITHIUM 2020-0 Yes Take by Univer s CARBONATE 8-03 mouth. ity of ORAL 21:04: Medical [place] busPIRone 0 Yes 10mg Take 10 mg Un [place] 10 mg 8-03 by mouth 2 ity of tablet 21:04: (two) [place] 25 times Medical daily. Branch LITHIUM 2020-0 Yes Take by Univer s CARBONATE 8-03 mouth. ity of ORAL 16:04: Medical [place] busPIRone 2020-0 Yes 10mg Take 10 mg [...] CARBONATE 8-03 mouth. ity of ORAL 16:04: [address] busPIRone 0 Yes 10mg Take 10 mg Un [place] 10 mg 8-03 by mouth 2 ity of tablet 16:04: (two) [place] 25 times Medical daily. Branch LITHIUM 2020-0 Yes Take by Univer s CARBONATE 8-03 mouth. ity of ORAL 16:04: [address] busPIRone Yes 10mg Take 10 mg Un [place] 10 mg 8-03 by mouth 2 ity of tablet 16:04: (two) [place] 25 times Medical daily. Branch LITHIUM 2020-0 Yes Take by Univer s CARBONATE 8-03 mouth. ity of ORAL 16:04: [address] busPIRone 2020- Yes 10mg Take 10 mg Un [place] 10 mg 8-03 by mouth 2 ity of tablet 16:04: (two) [place] 25 times Medical daily. Branch LITHIUM Yes Take by Univer s CARBONATE 7-30 mouth. ity of ORAL 15:22: [address] busPIRone Yes 10mg Take 10 mg Un [place] 10 mg 7-30 by mouth 2 ity of tablet 15:22: (two) [place] 11 times Medical daily. Branch LITHIUM Yes Take by Univer s CARBONATE 7-30 mouth. ity of ORAL 15:22: [address] busPIRone Yes 10mg Take 10 mg [place] 10 mg 7-30 by mouth 2 ity of tablet 15:22: (two) [place] 11 times Medical daily. Branch LITHIUM 2020-0 Yes Take by Univer s CARBONATE 7-30 mouth. ity of ORAL 15:22: [address] busPIRone 2020- Yes 10mg Take 10 mg Un [place] 10 mg 7-30 by mouth 2 ity of tablet 15:22: (two) [place] 11 times Medical daily. [place] lamoTRIgine 2021- No [id number] Take 1 Univers 25 mg 7-30 09-27 [...] daily for 30 days. lamoTRIgine 2020- No [id number] Take 1 Univers 25 mg 7-30 09-27 [...] daily for 30 days. lamoTRIgine 2020- No [id number] Take 1 Univers 25 mg 7-30 09-27 [...] daily for 30 days. lamoTRIgine 2020- No [id number] Take 1 Univers 25 mg 7-30 09-27 [...] daily for 30 days. lamoTRIgine 2020- No [id number] Take 1 Univers 25 mg 7-30 09-27 tablet by ity of tablet 00:00: 04:59 mouth [place] 00 :00 daily for Medical 7 days, Branch THEN 1 tablet 2 (two) times daily for 7 days, THEN 2 tablets every morning for 7 days, THEN 2 tablets 2 (two) times daily for 7 days, THEN 4 tablets 2 (two) times daily for 30 days. lamoTRIgine 2020-2020- No [id number] Take 1 Univers 25 mg 7-30 09-27 [...] daily for 30 days. lamoTRIgine 2020- No [id number] Take 1 Univers 25 mg 7-30 09-27 [...] daily for 30 days. lamoTRIgine 2020- No [id number] Take 1 Univers 25 mg 7-30 09-27 [...] daily for 30 days. lamoTRIgine 2020- No [id number] Take 1 Univers 25 mg 7-30 09-27 [...] daily for 30 days. lamoTRIgine 2020- No [id number] Take 1 Univers 25 mg 7-30 09-27 tablet by ity of tablet 00:00: 04:59 mouth [place] 00 :00 daily for Medical 7 days, Branch THEN 1 tablet 2 (two) times daily for 7 days, THEN 2 tablets every morning for 7 days, THEN 2 tablets 2 (two) times daily for 7 days, THEN 4 tablets 2 (two) times daily for 30 days. lamoTRIgine 2020-2020- No [id number] Take 1 Univers 25 mg 7-30 09-27 [...] daily for 30 days. lamoTRIgine 2020- No [id number] Take 1 Univers 25 mg 10-05 tablet [...] daily for 30 days. lamoTRIgine 2020- No [id number] Take 1 Univers 25 mg 10-05 tablet [...] daily for 30 days. lamoTRIgine 2020- No [id number] Take 1 Univers 25 mg 10-05 tablet [...] daily for 30 days. lamoTRIgine 2020- No [id number] Take 1 Univers 25 mg 10-05 tablet [...] Q8HPRN, [place] mg 44 Starting Medical [place] Branch 10/04/20 at 1633, Until Discontinu ed, Routine, Anxiety LORazepam Yes 2mg 2 mg, Univers (ATIVAN) 10-03 Intramuscu ity o f injection 2 20:47: lar, PRN - [place] mg 05 SEE Medical INSTRUCTIO [place] NS, 2 doses, Starting Thu10/03/20 at 1547, Until Discontinu ed, STAT, For seizure lasting two minutes or longer. hydrOXYzine 2020- No 10mg 10 mg, Uni vers (ATARAX) 10-03 07-29 Oral, Q8H, ity of tablet 10 20:00: 21:22 First dose [place] mg 00 :10 on Thu [facility] 10/03/20 at Branch 1500, Until Discontinu ed, Routine lithium 0 Yes 600mg 600 mg, Univer s carbonate 10-02 Oral, QAM, ity of CR tablet 14:00: First dose [place] 600 mg 00 on Thu [facility] 10/02/20 at Branch 0900, Until Discontinu ed busPIRone Yes 10mg 10 mg, Univer s (BUSPAR) 10-02 Oral, BID, ity o f tablet 10 01:00: First dose [place] mg 00 on [facility] 10/01/20 at Branch 1999, Until Discontinu ed, Routine famotidine 0 Yes 20mg 20 mg, Unive rs (PEPCID AC) 10-02 Oral, BID, it y of tablet 20 01:00: First dose [place] mg 00 on [facility] 10/01/20 at Branch 2000, Until Discontinu ed, Routine heparin 2020-0 Yes 5000U 5,000 Univers (porcine) 10-02 Units, ity of injection 01:00: Subcutaneo [place] 5,000 Units 00 us, Q12H, Med ical First dose Branch on Thu10/01/20 at 1999, Until Discontinu ed, Routine lithium 2020-0 Yes 900mg 900 mg, Univer s carbonate 10-01 Oral, QPM, ity of (LITHONATE) 22:00: First dose [place] capsule 900 00 on [facility] Medica l mg 10/01/20 at Branch 1700, Until Discontinu ed, Routine LITHIUM 2020-0 Yes Take by Univer s CARBONATE 10-01 mouth. ity of ORAL 17:24: [address] busPIRone 2020-0 Yes 10mg Take 10 mg Un [place] 10 mg 10-01 by mouth 2 ity of tablet 17:24: (two) [place] [address] times Medical daily. Branch LITHIUM Yes Take by Univer s CARBONATE 10-01 mouth. ity of ORAL 17:24: [address] busPIRone Yes 10mg Take 10 mg Un [place] 10 mg 10-01 by mouth 2 ity of tablet 17:24: (two) [place] [address] times Medical daily. [place] topiramate 2020- No 100mg Take 100 U nivers (TOPAMAX) 10-01 07-26 mg by ity of 100 mg 17:24: 00:00 mouth. [place] tablet 16 : [facility] topiramate 2020- No 100mg Take 100 U nivers (TOPAMAX) 10-01 07-26 mg by ity of 100 mg 17:24: 00:00 mouth. [place] tablet 16 : [facility] topiramate 2020- No 100mg Take 100 U nivers (TOPAMAX) 10-01 07-26 mg by ity of 100 mg 17:24: 00:00 mouth. [place] tablet : [facility] ondansetron Yes 4mg 4 mg, Slow Univers (ZOFRAN 10-01 IV Push, ity of (PF)) 17:23: Q6HPRN, [place] injection 4 23 Starting Medi tressa mg [facility] 10/01/20 at 1223, Until Discontinu ed, Routine, Nausea and Vomiting (N/V) acetaminoph Yes 650mg 650 mg, Un [place] en 10-01 Oral, ity of (TYLENOL) 17:23: Q6HPRN, [place] tablet 650 17 Starting Medic al mg [facility] 10/01/20 at 1223, Until Discontinu ed, Routine, Pain (scale 1-3) clonazePAM 2020- No .5mg 0.5 mg, Uni vers (KLONOPIN) 09-13 Oral, ity of tablet 0.5 04:45: 03:48 ONCE, 1 [place] as mg 00 :00 dose, [facility] 09/12/20 at Branch 2345, Routine famotidine 2020- No 20mg 20 [...] 1 Medica l L (PF)) dose, Thu [place] injection 09/12/20 at 125 mg 2130, Routine carBAMazepi 2020- No 600mg 600 mg, U nivers ne 09-12 Oral, ity of (TEGRETOL) 02:45: 01:56 ONCE, 1 [place] as tablet 600 00 :00 dose, Tue Medi tressa mg 09/11/20 at Branch 2145, SHAYNA hydrOXYzine 2020-0 Yes [id number] 50mg Take 1 Univers (VISTARIL) 7-07 capsule by ity of 50 mg 00:00: mouth 3 [place] capsule 00 (three) Medical times Branch daily as needed for Itching. hydrOXYzine 2020-0 Yes [id number] 50mg Take 1 Univers (VISTARIL) 7-07 capsule by ity of 50 mg 00:00: mouth 3 [place] capsule 00 (three) Medical times Branch daily as needed for Itching. hydrOXYzine 2020-0 Yes [id number] 50mg Take 1 Univers (VISTARIL) 7-07 capsule by ity of 50 mg 00:00: mouth 3 [place] capsule 00 (three) Medical times Branch daily as needed for Itching. hydrOXYzine 2020-0 Yes [id number] 50mg Take 1 Univers (VISTARIL) 7-07 capsule by ity of 50 mg 00:00: mouth 3 [place] capsule 00 (three) Medical times Branch daily as needed for Itching. hydrOXYzine 2020-0 Yes [id number] 50mg Take 1 Univers (VISTARIL) 7-07 capsule by ity of 50 mg 00:00: mouth 3 [place] capsule 00 (three) Medical times Branch daily as needed for Itching. hydrOXYzine 2020-0 Yes [id number] 50mg Take 1 Univers (VISTARIL) 7-07 capsule by ity of 50 mg 00:00: mouth 3 [place] capsule 00 (three) Medical times Branch daily as needed for Itching. hydrOXYzine 2020-0 Yes [id number] 50mg Take 1 Univers (VISTARIL) 7-07 capsule by ity of 50 mg 00:00: mouth 3 [place] capsule 00 (three) Medical times Branch daily as needed for Itching. hydrOXYzine 2020-0 Yes [id number] 50mg Take 1 Univers (VISTARIL) 7-07 capsule by ity of 50 mg 00:00: mouth 3 [place] capsule 00 (three) Medical times Branch daily as needed for Itching. hydrOXYzine 2020-0 Yes [id number] 50mg Take 1 Univers (VISTARIL) 7-07 capsule by ity of 50 mg 00:00: mouth 3 [place] capsule 00 (three) Medical times Branch daily as needed for Itching. hydrOXYzine 2020-0 Yes [id number] 50mg Take 1 Univers (VISTARIL) 7-07 capsule by ity of 50 mg 00:00: mouth 3 [place] capsule 00 (three) Medical times Branch daily as needed for Itching. hydrOXYzine 2020-0 Yes [id number] 50mg Take 1 Univers (VISTARIL) 7-07 capsule by ity of 50 mg 00:00: mouth 3 [place] capsule 00 (three) Medical times Branch daily as needed for Itching. hydrOXYzine 2020-0 Yes [id number] 50mg Take 1 Univers (VISTARIL) 7-07 capsule by ity of 50 mg 00:00: mouth 3 [place] capsule 00 (three) Medical times Branch daily as needed for Itching. hydrOXYzine 2020-0 Yes [id number] 50mg Take 1 Univers (VISTARIL) 7-07 capsule by ity of 50 mg 00:00: mouth 3 [place] capsule 00 (three) Medical times Branch daily as needed for Itching. hydrOXYzine 2020-0 Yes [id number] 50mg Take 1 Univers (VISTARIL) - capsule by ity of 50 mg 00:00: mouth 3 [place] capsule 00 (three) Medical times Branch daily as needed for Itching. hydrOXYzine 0 Yes [id number] 50mg Take 1 Univers (VISTARIL) 7- capsule by ity of 50 mg 00:00: mouth 3 [place] capsule 00 (three) Medical times Branch daily as needed for Itching. hydrOXYzine 0 Yes [id number] 50mg Take 1 Univers (VISTARIL) - capsule by ity of 50 mg 00:00: mouth 3 [place] capsule 00 (three) Medical times Branch daily as needed for Itching. hydrOXYzine 2020- No [id number] 50mg Take 1 Univers (VISTARIL) 09-12- capsule by it y of 50 mg 00:00: 00:00 mouth 3 [place] capsule 00 :00 (three) Medical times Branch daily as needed for Itching. hydrOXYzine 2020- No [id number] 50mg Take 1 Univers (VISTARIL) 09-12 capsule by it y of 50 mg 00:00: 00:00 mouth 3 [place] capsule 00 :00 (three) Medical times Branch daily as needed for Itching. hydrOXYzine 2020- No [id number] 50mg Take 1 Univers (VISTARIL) 09-12 capsule by it y of 50 mg 00:00: 00:00 mouth 3 [place] capsule 00 :00 (three) Medical times Branch daily as needed for Itching. gabapentin 2020- No [id number] 300mg Take 1 Univers 300 mg 09-12 4105 capsule by ity of capsule 00:00: 04:59 mouth 3 [place] 00 :00 (three) Medical times Branch daily for 15 days. gabapentin 2020-2020- No [id number] 300mg Take 1 Univers 300 mg 09-12 4105 capsule by ity of capsule 00:00: 04:59 mouth 3 [place] 00 :00 (three) Medical times Branch daily for 15 days. gabapentin 2020-2020- No [id number] 300mg Take 1 Univers 300 mg 09-12 4105 capsule by ity of capsule 00:00: 04:59 mouth 3 [place] 00 :00 (three) Medical times Branch daily for 15 days. gabapentin 2020-2020- No [id number] 300mg Take 1 Univers 300 mg 09-12 4105 capsule by ity of capsule 00:00: 04:59 mouth 3 [place] 00 :00 (three) Medical times Branch daily for 15 days. gabapentin 2020-0 2020- No [id number] 300mg Take 1 Univers 300 mg 09-12 4105 capsule by ity of capsule 00:00: 04:59 mouth 3 [place] 00 :00 (three) Medical times Branch daily for 15 days. carBAMazepi 2020-0 Yes [id number] 200mg Take 1 [facility] ne 7-06 tablet by ity of (TEGRETOL 00:00: mouth 2 [place] XR) 200 mg 00 (two) Medical 12 hr times Branch tablet daily. carBAMazepi 2020-0 Yes [id number] 200mg Take 1 [facility] ne 7-06 tablet by ity of (TEGRETOL 00:00: mouth 2 [place] XR) 200 mg 00 (two) Medical 12 hr times Branch tablet daily. carBAMazepi 2020-0 Yes [id number] 200mg Take 1 [facility] ne 7-06 tablet by ity of (TEGRETOL 00:00: mouth 2 [place] XR) 200 mg 00 (two) Medical 12 hr times Branch tablet daily. carBAMazepi 2020-0 Yes [id number] 200mg Take 1 [facility] ne 7-06 tablet by ity of (TEGRETOL 00:00: mouth 2 [place] XR) 200 mg 00 (two) Medical 12 hr times Branch tablet daily. carBAMazepi 2020-0 Yes [id number] 200mg Take 1 [facility] ne 7-06 tablet by ity of (TEGRETOL 00:00: mouth 2 [place] XR) 200 mg 00 (two) Medical 12 hr times Branch tablet daily. carBAMazepi 2020-0 Yes [id number] 200mg Take 1 [facility] ne 7-06 tablet by ity of (TEGRETOL 00:00: mouth 2 [place] XR) 200 mg 00 (two) Medical 12 hr times Branch tablet daily. carBAMazepi 2020-0 Yes [id number] 200mg Take 1 [facility] ne 7-06 tablet by ity of (TEGRETOL 00:00: mouth 2 [place] XR) 200 mg 00 (two) Medical 12 hr times Branch tablet daily. carBAMazepi 2020-2020- No [id number] 200mg Take 1 [facility] ne 09-11 tablet by [facility] of (TEGRETOL 00:00: 00:00 [place] 200 mg 00 :00 (two) Medical 12 hr times Branch tablet daily. carBAMazepi 2020- No [id number] 200mg Take 1 [facility] ne 09-11 tablet by [facility] of (TEGRETOL 00:00: 00:00 [place] 200 mg 00 :00 (two) Medical 12 hr times Branch tablet daily. carBAMazepi 2020-2020- No [id number] 200mg Take 1 [facility] ne 09-11 tablet by [facility] of (TEGRETOL 00:00: 00:00 [place] 200 mg 00 :00 (two) Medical 12 hr times Branch tablet daily. lacosamide 2020- No 100mg 100 mg, [facility] (VIMPAT) 6-25 06-25 Oral, ity of tablet 100 18:45: 18:43 ONCE, 1 [place] mg 00 :00 dose, Fri Medical 08/31/20 at Branch 1345, Routine
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 Branch busPIRone Yes 10mg Take 10 mg [facility] 10 mg 6-25 by mouth 2 ity of tablet 18:41: (two) [place] 13 times Medical daily. Branch busPIRone Yes 10mg Take 10 mg [facility] [place] 10 mg 6-25 by mouth 2 ity of tablet 18:41: (two) [place] 13 times Medical daily. Branch busPIRone 0 Yes 10mg Take 10 mg [facility] [place] 10 mg 6-25 by mouth 2 ity of tablet 18:41: (two) [place] 13 times Medical daily. Branch LITHIUM Yes Take by Univer s CARBONATE 6-25 mouth. ity of ORAL 18:41: [address] LITHIUM Yes Take by Univer s CARBONATE 6-25 mouth. ity of ORAL 18:41: [address] LITHIUM Yes Take by Univer s CARBONATE 6-25 mouth. ity of ORAL 18:41: [address] LITHIUM Yes Take by Univer s CARBONATE 6-25 mouth. ity of ORAL 18:41: [address] LITHIUM Yes Take by Univer s CARBONATE 6-25 mouth. ity of ORAL 18:41: [address] LITHIUM Yes Take by Univer s CARBONATE 6-25 mouth. ity of ORAL 18:41: [address] LITHIUM Yes Take by Univer s CARBONATE 6-25 mouth. ity of ORAL 18:41: [address] LITHIUM Yes Take by Univer s CARBONATE 6-25 mouth. ity of ORAL 18:41: [address] Lacosamide Yes [id number] 100mg Take 1 [facility] (VIMPAT) 6-25 tablet by ity of 100 mg 00:00: mouth [place] tablet 00 every 12 Medical (twelve) Branch hours. Lacosamide 2020- No [id number] 100mg Take 1 [facility] (VIMPAT) 6-25 07-06 tablet by ity o f 100 mg 00:00: 00:00 mouth [place] tablet 00 :00 every 12 Medical (twelve) Branch hours. acetaminoph 2020- No 1000mg 1,000 mg, [facility] en 6-24 06-24 Oral, ity of (TYLENOL) 03:15: 02:16 ONCE, 1 [place] tablet 00 :[place] dose, Wed Medical 1,000 mg 08/29/20 at [facility] h 2215, SHAYNA ibuprofen 2020-0 Yes [id number] 600mg Take 1 [facility] 600 mg 6-23 tablet by ity of tablet 00:00: mouth [place] 00 every 6 Medical (six) Branch hours as needed for Pain (scale 4-6). benzonatate 2020-0 Yes [id number] 200mg Take 1 [facility] 200 mg 6-23 capsule by ity of capsule 00:00: mouth 3 [place] 00 (three) Medical times Branch daily as needed for Cough for up to 20 doses. ondansetron 2020-0 Yes [id number] 4mg Take 1 [facility] (ZOFRAN 6-23 tablet by ity of ODT) 4 mg 00:00: mouth [place] disintegrat 00 every 8 Medic al ing tablet (eight) Branch hours as needed for Nausea and Vomiting (N/V). ibuprofen 2020-0 Yes [id number] 600mg Take 1 [facility] 600 mg 6-23 tablet by ity of tablet 00:00: mouth [place] 00 every 6 Medical (six) Branch hours as needed for Pain (scale 4-6). benzonatate 2020-0 Yes [id number] 200mg Take 1 [facility] 200 mg 6-23 capsule by ity of capsule 00:00: mouth 3 [place] 00 (three) Medical times Branch daily as needed for Cough for up to 20 doses. ondansetron 2021-0 Yes [id number] 4mg Take 1 [facility] (ZOFRAN 6-23 tablet by ity of ODT) 4 mg 00:00: mouth [place] disintegrat 00 every 8 Medic al ing tablet (eight) Branch hours as needed for Nausea and Vomiting (N/V). ibuprofen 1-0 Yes [id number] 600mg Take 1 [facility] 600 mg 6-23 tablet by ity of tablet 00:00: mouth [place] 00 every 6 Medical (six) Branch hours as needed for Pain (scale 4-6). benzonatate 2021-0 Yes [id number] 200mg Take 1 [facility] 200 mg 6-23 capsule by ity of capsule 00:00: mouth 3 [place] 00 (three) Medical times Branch daily as needed for Cough for up to 20 doses. ondansetron 2021-0 Yes [id number] 4mg Take 1 [facility] (ZOFRAN 6-23 tablet by ity of ODT) 4 mg 00:00: mouth [place] disintegrat 00 every 8 Medic al ing tablet (eight) Branch hours as needed for Nausea and Vomiting (N/V). ibuprofen 2021-0 Yes [id number] 600mg Take 1 [facility] 600 mg 6-23 tablet by ity of tablet 00:00: mouth [place] 00 every 6 Medical (six) Branch hours as needed for Pain (scale 4-6). benzonatate 2021-0 Yes [id number] 200mg Take 1 [facility] 200 mg 6-23 capsule by ity of capsule 00:00: mouth 3 [place] 00 (three) Medical times Branch daily as needed for Cough for up to 20 doses. ondansetron 2020-0 Yes [id number] 4mg Take 1 [facility] (ZOFRAN 6-23 tablet by ity of ODT) 4 mg 00:00: mouth [place] disintegrat 00 every 8 Medic al ing tablet (eight) Branch hours as needed for Nausea and Vomiting (N/V). ibuprofen 2020-0 Yes [id number] 600mg Take 1 [facility] 600 mg 6-23 tablet by ity of tablet 00:00: mouth [place] 00 every 6 Medical (six) Branch hours as needed for Pain (scale 4-6). benzonatate 1-0 Yes [id number] 200mg Take 1 [facility] 200 mg 6-23 capsule by ity of capsule 00:00: mouth 3 [place] 00 (three) Medical times Branch daily as needed for Cough for up to 20 doses. ondansetron 1-0 Yes [id number] 4mg Take 1 [facility] (ZOFRAN 6-23 tablet by ity of ODT) 4 mg 00:00: mouth [place] disintegrat 00 every 8 Medic al ing tablet (eight) Branch hours as needed for Nausea and Vomiting (N/V). ibuprofen 2021-0 Yes [id number] 600mg Take 1 [facility] 600 mg 6-23 tablet by ity of tablet 00:00: mouth [place] 00 every 6 Medical (six) Branch hours as needed for Pain (scale 4-6). benzonatate 2021-0 Yes [id number] 200mg Take 1 [facility] 200 mg 6-23 capsule by ity of capsule 00:00: mouth 3 [place] (three) Medical times Branch daily as needed for Cough for up to 20 doses. ondansetron 1-0 Yes [id number] 4mg Take 1 [facility] (ZOFRAN 6-23 tablet by ity of ODT) 4 mg 00:00: mouth [place] disintegrat 00 every 8 Medic al ing tablet (eight) Branch hours as needed for Nausea and Vomiting (N/V). ibuprofen 1-0 Yes [id number] 600mg Take 1 [facility] 600 mg 6-23 tablet by ity of tablet 00:00: mouth [place] 00 every 6 Medical (six) Branch hours as needed for Pain (scale 4-6). benzonatate 2021-0 Yes [id number] 200mg Take 1 [facility] 200 mg 6-23 capsule by ity of capsule 00:00: mouth 3 [place] 00 (three) Medical times Branch daily as needed for Cough for up to 20 doses. ondansetron 1-0 Yes [id number] 4mg Take 1 [facility] (ZOFRAN 6-23 tablet by ity of ODT) 4 mg 00:00: mouth [place] disintegrat 00 every 8 Medic al ing tablet (eight) Branch hours as needed for Nausea and Vomiting (N/V). ibuprofen 2020-0 Yes [id number] 600mg Take 1 [facility] 600 mg 6-23 tablet by ity of tablet 00:00: mouth [place] 00 every 6 Medical (six) Branch hours as needed for Pain (scale 4-6). benzonatate 1-0 Yes [id number] 200mg Take 1 [facility] 200 mg 6-23 capsule by ity of capsule 00:00: mouth 3 [place] 00 (three) Medical times Branch daily as needed for Cough for up to 20 doses. ondansetron 1-0 Yes [id number] 4mg Take 1 [facility] (ZOFRAN 6-23 tablet by ity of ODT) 4 mg 00:00: mouth [place] disintegrat 00 every 8 Medic al ing tablet (eight) Branch hours as needed for Nausea and Vomiting (N/V). ibuprofen 2021-0 Yes [id number] 600mg Take 1 [facility] 600 mg 6-23 tablet by ity of tablet 00:00: mouth [place] 00 every 6 Medical (six) Branch hours as needed for Pain (scale 4-6). benzonatate 2021-0 Yes [id number] 200mg Take 1 [facility] 200 mg 6-23 capsule by ity of capsule 00:00: mouth 3 [place] 00 (three) Medical times Branch daily as needed for Cough for up to 20 doses. ondansetron 2021-0 Yes [id number] 4mg Take 1 [facility] (ZOFRAN 6-23 tablet by ity of ODT) 4 mg 00:00: mouth [place] disintegrat 00 every 8 Medic al ing tablet (eight) Branch hours as needed for Nausea and Vomiting (N/V). ibuprofen 2021-0 Yes [id number] 600mg Take 1 [facility] 600 mg 6-23 tablet by ity of tablet 00:00: mouth [place] 00 every 6 Medical (six) Branch hours as needed for Pain (scale 4-6). benzonatate 2021-0 Yes [id number] 200mg Take 1 [facility] 200 mg 6-23 capsule by ity of capsule 00:00: mouth 3 [place] 00 (three) Medical times Branch daily as needed for Cough for up to 20 doses. ondansetron 1-0 Yes [id number] 4mg Take 1 [facility] (ZOFRAN 6-23 tablet by ity of ODT) 4 mg 00:00: mouth [place] disintegrat 00 every 8 Medic al ing tablet (eight) Branch hours as needed for Nausea and Vomiting (N/V). ibuprofen 1-0 Yes [id number] 600mg Take 1 [facility] 600 mg 6-23 tablet by ity of tablet 00:00: mouth [place] 00 every 6 Medical (six) Branch hours as needed for Pain (scale 4-6). benzonatate 2021-0 Yes [id number] 200mg Take 1 [facility] 200 mg 6-23 capsule by ity of capsule 00:00: mouth 3 [place] 00 (three) Medical times Branch daily as needed for Cough for up to 20 doses. ondansetron 2021-0 Yes [id number] 4mg Take 1 [facility] (ZOFRAN 6-23 tablet by ity of ODT) 4 mg 00:00: mouth [place] disintegrat 00 every 8 Medic al ing tablet (eight) Branch hours as needed for Nausea and Vomiting (N/V). benzonatate 2021-0 Yes [id number] 200mg Take 1 [facility] 200 mg 6-23 capsule by ity of capsule 00:00: mouth 3 [place] 00 (three) Medical times Branch daily as needed for Cough for up to 20 doses. benzonatate 2021-0 Yes [id number] 200mg Take 1 [facility] 200 mg 6-23 capsule by ity of capsule 00:00: mouth (three) Medical times Branch daily as needed for Cough for up to 20 doses. benzonatate 1-0 Yes [id number] 200mg Take 1 [facility] 200 mg 6-23 capsule by ity of capsule 00:00: mouth (three) Medical times Branch daily as needed for Cough for up to 20 doses. benzonatate 2020-0 Yes [id number] 200mg Take 1 [facility] 200 mg 6-23 capsule by ity of capsule 00:00: mouth (three) Medical times Branch daily as needed for Cough for up to 20 doses. benzonatate 2020-0 Yes [id number] 200mg Take 1 [facility] 200 mg 6-23 capsule by ity of capsule 00:00: mouth () Medical times Branch daily as needed for Cough for up to 20 doses. benzonatate 2020-0 Yes [id number] 200mg Take 1 [facility] 200 mg 6-23 capsule by ity of capsule 00:00: mouth () Medical times Branch daily as needed for Cough for up to 20 doses. benzonatate 2020-0 Yes [id number] 200mg Take 1 [facility] 200 mg 6-23 capsule by ity of capsule 00:00: mouth () Medical times Branch daily as needed for Cough for up to 20 doses. benzonatate 1-0 Yes [id number] 200mg Take 1 [facility] 200 mg 6-23 capsule by ity of capsule 00:00: mouth () Medical times Branch daily as needed for Cough for up to 20 doses. benzonatate 1-0 Yes [id number] 200mg Take 1 [facility] 200 mg 6-23 capsule by ity of capsule 00:00: mouth (three) Medical times Branch daily as needed for Cough for up to 20 doses. benzonatate 1-0 Yes [id number] 200mg Take 1 [facility] 200 mg 6-23 capsule by ity of capsule 00:00: mouth (three) Medical times Branch daily as needed for Cough for up to 20 doses. benzonatate 1-0 Yes [id number] 200mg Take 1 [facility] 200 mg 6-23 capsule by ity of capsule 00:00: mouth 3 [place] 00 (three) Medical times Branch daily as needed for Cough for up to 20 doses. benzonatate 2020- No [id number] 200mg Take 1 [facility] 200 mg 6-23 -26 capsule by ity of capsule 00:00: 00:00 mouth 3 [place] 00 :00 (three) Medical times Branch daily as needed for Cough for up to 20 doses. benzonatate 2020- No [id number] 200mg Take 1 [facility] 200 mg 6-23 - capsule by ity of capsule 00:00: 00:00 mouth 3 [place] 00 :00 (three) Medical times Branch daily as needed for Cough for up to 20 doses. benzonatate 2020- No [id number] 200mg Take 1 [facility] 200 mg 6-23 - capsule by ity of capsule 00:00: 00:00 mouth 3 [place] 00 :00 (three) Medical times Branch daily as needed for Cough for up to 20 doses. ibuprofen 2020- No [id number] 600mg Take 1 [facility] 600 mg 6- 07-30 tablet by ity of tablet 00:00: 00:00 mouth [place] 00 :00 every 6 Medical (six) Branch hours as needed for Pain (scale 4-6). ondansetron 2020- No [id number] 4mg Take 1 [facility] (ZOFRAN 6-23 07-30 tablet by ity of ODT) 4 [...] 2020- No 1000mg 1,000 mg, Univers (ROCEPHIN) 3-08 03-08 IV ity of 1,000 mg in 03:45: 03:13 Piggyback, [place] NaCl 0.9% 00 :00 ONCE, 1 Medical (NS) 50 mL dose, [facility] ch MINI-BAG 05/13/20 at 2145, 50 mL
Reas on for Anti-Infec tive: Documented Infection< br>Documen con Infection Site: Urine
D uration of Therapy: Other (see Comments) NaCl 0.9% 2020- No 1000mL at 999 Uni vers (NS) bolus 05-14-08 mL/hr, ity of infusion 02:15: 02:38 1,000 mL, [place] as 1,000 mL 00 :00 IV Medical Infusion, Branch ONCE, 1 dose, [place] 05/13/20 at 2015, STAT ketorolac 2020- No 30mg 30 mg, Unive rs (TORADOL) 05-14-08 Slow IV ity of injection 01:30: 01:28 [place], [place] 30 mg 00 :00 ONCE, 1 Medical dose, [place] Branch 05/13/20 at 1930, SHAYNA
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 ondansetron Yes [id number] 4mg Take 1 [facility] (ZOFRAN 3-07 tablet by ity of ODT) 4 mg 00:00: mouth [place] disintegrat 00 every 8 Medic al ing tablet (eight) Branch hours as needed for Nausea and Vomiting (N/V). ibuprofen Yes [id number] 600mg Take 1 U nivers 600 mg 3-07 tablet by ity of tablet 00:00: mouth [place] 00 every 6 Medical (six) Branch hours as needed for Pain (scale 4-6). ondansetron Yes [id number] 4mg Take 1 [facility] (ZOFRAN 3-07 tablet by ity of ODT) 4 mg 00:00: mouth [place] disintegrat 00 every 8 Medic al ing tablet (eight) Branch hours as needed for Nausea and Vomiting (N/V). ibuprofen Yes [id number] 600mg Take 1 U nivers 600 mg 3-07 tablet by ity of tablet 00:00: mouth [place] 00 every 6 Medical (six) Branch hours as needed for Pain (scale 4-6). ondansetron 2021-0 Yes [id number] 4mg Take 1 [facility] (ZOFRAN 3-07 tablet by ity of ODT) 4 mg 00:00: mouth [place] disintegrat 00 every 8 Medic al ing tablet (eight) Branch hours as needed for Nausea and Vomiting (N/V). ibuprofen 2020-0 Yes [id number] 600mg Take 1 U nivers 600 mg 3-07 tablet by ity of tablet 00:00: mouth [place] 00 every 6 Medical (six) Branch hours as needed for Pain (scale 4-6). ondansetron 2021-0 Yes [id number] 4mg Take 1 [facility] (ZOFRAN 3-07 tablet by ity of ODT) 4 mg 00:00: mouth [place] disintegrat 00 every 8 Medic al ing tablet (eight) Branch hours as needed for Nausea and Vomiting (N/V). ibuprofen 2020-0 Yes [id number] 600mg Take 1 U nivers 600 mg 3-07 tablet by ity of tablet 00:00: mouth [place] 00 every 6 Medical (six) Branch hours as needed for Pain (scale 4-6). ondansetron 2020-0 Yes [id number] 4mg Take 1 [facility] (ZOFRAN 3-07 tablet by ity of ODT) 4 mg 00:00: mouth [place] disintegrat 00 every 8 Medic al ing tablet (eight) Branch hours as needed for Nausea and Vomiting (N/V). ibuprofen 2020-0 Yes [id number] 600mg Take 1 U nivers 600 mg 3-07 tablet by ity of tablet 00:00: mouth [place] 00 every 6 Medical (six) Branch hours as needed for Pain (scale 4-6). ondansetron 2021-0 Yes [id number] 4mg Take 1 [facility] (ZOFRAN 3-07 tablet by ity of ODT) 4 mg 00:00: mouth [place] disintegrat 00 every 8 Medic al ing tablet (eight) Branch hours as needed for Nausea and Vomiting (N/V). ibuprofen 2021-0 Yes [id number] 600mg Take 1 U nivers 600 mg 3-07 tablet by ity of tablet 00:00: mouth [place] 00 every 6 Medical (six) Branch hours as needed for Pain (scale 4-6). ondansetron 2021-0 Yes [id number] 4mg Take 1 [facility] (ZOFRAN 3-07 tablet by ity of ODT) 4 mg 00:00: mouth [place] disintegrat 00 every 8 Medic al ing tablet (eight) Branch hours as needed for Nausea and Vomiting (N/V). ibuprofen 2021-0 Yes [id number] 600mg Take 1 U nivers 600 mg 3-07 tablet by ity of tablet 00:00: mouth [place] 00 every 6 Medical (six) Branch hours as needed for Pain (scale 4-6). ondansetron 2021-0 Yes [id number] 4mg Take 1 [facility] (ZOFRAN 3-07 tablet by ity of ODT) 4 mg 00:00: mouth [place] disintegrat 00 every 8 Medic al ing tablet (eight) Branch hours as needed for Nausea and Vomiting (N/V). ibuprofen 2020-0 Yes [id number] 600mg Take 1 U nivers 600 mg 3-07 tablet by ity of tablet 00:00: mouth [place] 00 every 6 Medical (six) Branch hours as needed for Pain (scale 4-6). ondansetron 2020-0 Yes [id number] 4mg Take 1 [facility] (ZOFRAN 3-07 tablet by ity of ODT) 4 mg 00:00: mouth [place] disintegrat 00 every 8 Medic al ing tablet (eight) Branch hours as needed for Nausea and Vomiting (N/V). ibuprofen 2020-0 Yes [id number] 600mg Take 1 U nivers 600 mg 3-07 tablet by ity of tablet 00:00: mouth [place] 00 every 6 Medical (six) Branch hours as needed for Pain (scale 4-6). ondansetron 2021-0 Yes [id number] 4mg Take 1 [facility] (ZOFRAN 3-07 tablet by ity of ODT) 4 mg 00:00: mouth [place] disintegrat 00 every 8 Medic al ing tablet (eight) Branch hours as needed for Nausea and Vomiting (N/V). ibuprofen 2021-0 Yes [id number] 600mg Take 1 U nivers 600 mg 3-07 tablet by ity of tablet 00:00: mouth [place] 00 every 6 Medical (six) Branch hours as needed for Pain (scale 4-6). ondansetron 2021-0 Yes [id number] 4mg Take 1 [facility] (ZOFRAN 3-07 tablet by ity of ODT) 4 mg 00:00: mouth [place] disintegrat 00 every 8 Medic al ing tablet (eight) Branch hours as needed for Nausea and Vomiting (N/V). ibuprofen 2020-0 Yes [id number] 600mg Take 1 U nivers 600 mg 3-07 tablet by ity of tablet 00:00: mouth [place] 00 every 6 Medical (six) Branch hours as needed for Pain (scale 4-6). ondansetron 2020-0 Yes [id number] 4mg Take 1 [facility] (ZOFRAN 3-07 tablet by ity of ODT) 4 mg 00:00: mouth [place] disintegrat 00 every 8 Medic al ing tablet (eight) Branch hours as needed for Nausea and Vomiting (N/V). ibuprofen 2020-0 Yes [id number] 600mg Take 1 U nivers 600 mg 3-07 tablet by ity of tablet 00:00: mouth [place] 00 every 6 Medical (six) Branch hours as needed for Pain (scale 4-6). ondansetron 2020-0 Yes [id number] 4mg Take 1 [facility] (ZOFRAN 3-07 tablet by ity of ODT) 4 mg 00:00: mouth [place] disintegrat 00 every 8 Medic al ing tablet (eight) Branch hours as needed for Nausea and Vomiting (N/V). ibuprofen 2020-0 Yes [id number] 600mg Take 1 U nivers 600 mg 3-07 tablet by ity of tablet 00:00: mouth [place] 00 every 6 Medical (six) Branch hours as needed for Pain (scale 4-6). ondansetron 2020-0 Yes [id number] 4mg Take 1 [facility] (ZOFRAN 3-07 tablet by ity of ODT) 4 mg 00:00: mouth [place] disintegrat 00 every 8 Medic al ing tablet (eight) Branch hours as needed for Nausea and Vomiting (N/V). ibuprofen 2020-0 Yes [id number] 600mg Take 1 U nivers 600 mg 3-07 tablet by ity of tablet 00:00: mouth [place] 00 every 6 Medical (six) Branch hours as needed for Pain (scale 4-6). ondansetron 2020-0 Yes [id number] 4mg Take 1 [facility] (ZOFRAN 3-07 tablet by ity of ODT) 4 mg 00:00: mouth [place] disintegrat 00 every 8 Medic al ing tablet (eight) Branch hours as needed for Nausea and Vomiting (N/V). ibuprofen 2020-0 Yes [id number] 600mg Take 1 U nivers 600 mg 3-07 tablet by ity of tablet 00:00: mouth [place] 00 every 6 Medical (six) Branch hours as needed for Pain (scale 4-6). ondansetron 2020-0 Yes [id number] 4mg Take 1 [facility] (ZOFRAN 3-07 tablet by ity of ODT) 4 mg 00:00: mouth [place] disintegrat 00 every 8 Medic al ing tablet (eight) Branch hours as needed for Nausea and Vomiting (N/V). ibuprofen 2020-0 Yes [id number] 600mg Take 1 U nivers 600 mg 3-07 tablet by ity of tablet 00:00: mouth [place] 00 every 6 Medical (six) Branch hours as needed for Pain (scale 4-6). ibuprofen 2020-0 Yes [id number] 600mg Take 1 U nivers 600 mg 3-07 tablet by ity of tablet 00:00: mouth [place] 00 every 6 Medical (six) Branch hours as needed for Pain (scale 4-6). ibuprofen 2020-0 Yes [id number] 600mg Take 1 U nivers 600 mg 3-07 tablet by ity of tablet 00:00: mouth [place] 00 every 6 Medical (six) Branch hours as needed for Pain (scale 4-6). ibuprofen 2020-0 Yes [id number] 600mg Take 1 U nivers 600 mg 3-07 tablet by ity of tablet 00:00: mouth [place] 00 every 6 Medical (six) Branch hours as needed for Pain (scale 4-6). ibuprofen 2020-0 Yes [id number] 600mg Take 1 U nivers 600 mg 3-07 tablet by ity of tablet 00:00: mouth [place] 00 every 6 Medical (six) Branch hours as needed for Pain (scale 4-6). ibuprofen 2020-0 Yes [id number] 600mg Take 1 U nivers 600 mg 3-07 tablet by ity of tablet 00:00: mouth [place] 00 every 6 Medical (six) Branch hours as needed for Pain (scale 4-6). ibuprofen 2020-0 Yes [id number] 600mg Take 1 U nivers 600 mg 3-07 tablet by ity of tablet 00:00: mouth [place] 00 every 6 Medical (six) Branch hours as needed for Pain (scale 4-6). ibuprofen 0 Yes [id number] 600mg Take 1 U nivers 600 mg 3-07 tablet by ity of tablet 00:00: mouth [place] 00 every 6 Medical (six) Branch hours as needed for Pain (scale 4-6). ibuprofen 0 Yes [id number] 600mg Take 1 U nivers 600 mg 3-07 tablet by ity of tablet 00:00: mouth [place] 00 every 6 Medical (six) Branch hours as needed for Pain (scale 4-6). ibuprofen 0 Yes [id number] 600mg Take 1 U nivers 600 mg 3-07 tablet by ity of tablet 00:00: mouth [place] 00 every 6 Medical (six) Branch hours as needed for Pain (scale 4-6). ibuprofen 0 Yes [id number] 600mg Take 1 U nivers 600 mg 3-07 tablet by ity of tablet 00:00: mouth [place] 00 every 6 Medical (six) Branch hours as needed for Pain (scale 4-6). ibuprofen 2020- No [id number] 600mg Take 1 [facility] 600 mg 05-13- tablet by ity of tablet 00:00: 00:00 mouth [place] 00 :00 every 6 Medical (six) Branch hours as needed for Pain (scale 4-6). ibuprofen 2020- No [id number] 600mg Take 1 [facility] 600 mg 05-13- tablet by ity of tablet 00:00: 00:00 mouth [place] 00 :00 every 6 Medical (six) Branch hours as needed for Pain (scale 4-6). ibuprofen 2020- No [id number] 600mg Take 1 [facility] 600 mg 05-13- tablet by ity of tablet 00:00: 00:00 mouth [place] 00 :00 every 6 Medical (six) Branch hours as needed for Pain (scale 4-6). ondansetron 2020- No [id number] 4mg Take 1 [facility] (ZOFRAN 05-1330 tablet by ity of ODT) 4 mg 00:00: 00:00 mouth [place] disintegrat 00 :00 every 8 Medic al ing tablet (eight) Branch hours as needed for Nausea and Vomiting (N/V). cephALEXin 2020- No [id number] 500mg Take 1 [facility] (KEFLEX) 3-07 03-18 capsule by ity of 500 mg 00:00: 04:59 mouth 3 [place] capsule 00 :00 (three) Medical times Branch daily for 10 days. metroNIDAZO 2019- 2020- No [id number] 500mg Take 1 [facility] LE 500 mg 113 -21 tablet by ity of tablet 00:00: 05:59 mouth 2 [place] 00 :00 (two) Medical times [place] daily for 7 days. metroNIDAZO 2019-03 2020- No [id number] 500mg Take 1 [facility] LE 500 mg 113 11-21 tablet by ity of tablet 00:00: 05:59 mouth 2 [place] 00 :00 (two) Medical times Branch daily for 7 days. azithromyci 2019-03 2020- No [id number] 1000mg Take 2 Univers n 500 mg 0-14 10-16 tablets by ity of tablet 00:00: 04:59 mouth [place] 00 :00 daily for Medical 1 day. Branch azithromyci 2019-03 2020- No [id number] 1000mg Take 2 Univers n 500 mg 0-14 10-16 tablets by ity of tablet 00:00: 04:59 mouth [place] 00 :00 daily for Medical 1 day. Branch fluconazole 2020- No [id number] 150mg Take 1 [facility] (DIFLUCAN) 817 08-18 tablet by ity of 150 mg 00:00: 04:59 mouth [place] tablet 00 :00 now for 1 Medical dose. Branch metroNIDAZO 2020- No [id number] 500mg Take 1 [facility] LE (FLAGYL) 7- 07-30 tablet by it y of 500 mg 00:00: 04:59 mouth 2 [place] tablet 00 :00 (two) Medical times [place] daily for 7 days. topiramate 2020-0 Yes 100mg Take 100 Un [facility] (TOPAMAX) 7-21 mg by ity of 100 mg 19:33: mouth. [place] tablet 04 [facility] topiramate 2020-0 Yes 100mg Take 100 [place] (TOPAMAX) 7-21 mg by ity of 100 mg 19:33: mouth. [place] tablet 04 [facility] topiramate 2020-0 Yes 100mg Take 100 [place] (TOPAMAX) 7-21 mg by ity of 100 mg 19:33: mouth. [place] tablet [address] [place] [address] topiramate 2020-0 Yes 100mg Take 100 [place] (TOPAMAX) 7-21 mg by ity of 100 mg 19:33: mouth. [place] tablet [address] [place] [address] topiramate 2020-0 Yes 100mg Take 100 [place] (TOPAMAX) 7-21 mg by ity of 100 mg 19:33: mouth. [place] tablet [address] [place] [address] topiramate 2020-0 Yes 100mg Take 100 [place] (TOPAMAX) 7-21 mg by ity of 100 mg 19:33: mouth. [place] tablet [address] [place] [address] topiramate 2020-0 Yes 100mg Take 100 [place] (TOPAMAX) 7-21 mg by ity of 100 mg 19:33: mouth. [address] topiramate 2020-0 Yes 100mg Take 100 [place] (TOPAMAX) 7-21 mg by ity of 100 mg 19:33: mouth. [address] topiramate 2020-0 Yes 100mg Take 100 [place] (TOPAMAX) 7-21 mg by ity of 100 mg 19:33: mouth. [address] topiramate 2020-0 Yes 100mg Take 100 [place] (TOPAMAX) 7-21 mg by ity of 100 mg 19:33: mouth. [address] topiramate 2020-0 Yes 100mg Take 100 [place] (TOPAMAX) 7-21 mg by ity of 100 mg 19:33: mouth. [address] topiramate 2020-0 Yes 100mg Take 100 [place] (TOPAMAX) 7-21 mg by ity of 100 mg 19:33: mouth. [address] topiramate 2020-0 Yes 100mg Take 100 [place] (TOPAMAX) 7-21 mg by ity of 100 mg 19:33: mouth. [place] tablet [address] [place] [address] topiramate 2020-0 Yes 100mg Take 100 [place] (TOPAMAX) 7-21 mg by ity of 100 mg 19:33: mouth. [place] tablet [address] [place] [address] topiramate 2020-0 Yes 100mg Take 100 [place] (TOPAMAX) 7-21 mg by ity of 100 mg 19:33: mouth. [address] topiramate 2020-0 Yes 100mg Take 100 [place] (TOPAMAX) 7-21 mg by ity of 100 mg 19:33: mouth. [place] tablet [address] [place] [address] topiramate 2020-0 Yes 100mg Take 100 [place] (TOPAMAX) 7-21 mg by ity of 100 mg 19:33: mouth. [place] tablet [address] [place] [address] topiramate 2020-0 Yes 100mg Take 100 [place] (TOPAMAX) 7-21 mg by ity of 100 mg 19:33: mouth. [place] tablet [address] [place] [address] topiramate 2020-0 Yes 100mg Take 100 [place] (TOPAMAX) 7-21 mg by ity of 100 mg 19:33: mouth. [place] tablet [address] [place] [address] topiramate 2020-0 Yes 100mg Take 100 [place] (TOPAMAX) 7-21 mg by ity of 100 mg 19:33: mouth. [place] tablet [address] [place] [address] topiramate 2020-0 Yes 100mg Take 100 [place] (TOPAMAX) 7-21 mg by ity of 100 mg 19:33: mouth. [place] tablet [address] [place] [address] topiramate 2020-0 Yes 100mg Take 100 [place] (TOPAMAX) 7-21 mg by ity of 100 mg 19:33: mouth. [address] topiramate 2020-0 Yes 100mg Take 100 [place] (TOPAMAX) 7-21 mg by ity of 100 mg 19:33: mouth. [place] tablet [address] [place] [address] topiramate 2020-0 Yes 100mg Take 100 [place] (TOPAMAX) 7-21 mg by ity of 100 mg 19:33: mouth. [place] tablet [address] [place] [address] topiramate 2020-0 Yes 100mg Take 100 [place] (TOPAMAX) 7-21 mg by ity of 100 mg 19:33: mouth. [place] tablet [address] [place] [address] topiramate 2020-0 Yes 100mg Take 100 [place] (TOPAMAX) 7-21 mg by ity of 100 mg 19:33: mouth. [place] tablet [address] [place] [address] topiramate 2020-0 Yes 100mg Take 100 [place] (TOPAMAX) 7-21 mg by ity of 100 mg 19:33: mouth. [place] tablet [address] [place] [address] topiramate 2020-0 Yes 100mg Take 100 [place] (TOPAMAX) 7-21 mg by ity of 100 mg 19:33: mouth. [place] tablet [address] [place] [address] topiramate 2020-0 Yes 100mg Take 100 Un [...] by ity of 100 mg 19:33: mouth. [place] tablet 04 [facility] topiramate 2020-0 Yes 100mg Take 100 [place] (TOPAMAX) 7-21 mg by ity of 100 mg 19:33: mouth. [place] tablet 04 [facility] Branch topiramate 2020-0 Yes 100mg Take 100 [place] (TOPAMAX) 7-21 mg by ity of 100 mg 19:33: mouth. [place] tablet 04 [facility] Branch topiramate 2020-0 Yes 100mg Take 100 [place] (TOPAMAX) 6-11 mg by ity of 100 mg 13:24: mouth. [place] tablet 15 Medical Branch topiramate 2020-0 Yes 100mg Take 100 [place] (TOPAMAX) 6-11 mg by ity of 100 mg 13:24: mouth. [facility] 15 Medical Branch montelukast 2020-0 Yes [id number] 10mg Take 1 [facility] 10 mg 6-11 tablet by ity of tablet 00:00: mouth [place] 00 daily. Medical Branch loratadine 2020-0 Yes [id number] 10mg Take 1 [facility] 10 mg 6-11 tablet by ity of tablet 00:00: mouth [place] 00 daily. Medical Branch benzonatate 2020-0 Yes [id number] 100mg Take 1 [facility] 100 mg 6-11 capsule by ity of capsule 00:00: mouth 3 [place] 00 (three) Medical times Branch daily as needed for Cough. montelukast 2020-0 Yes [id number] 10mg Take 1 [facility] 10 mg 6-11 tablet by ity of tablet 00:00: mouth [place] 00 daily. Medical Branch loratadine 2020-0 Yes [id number] 10mg Take 1 [facility] 10 mg 6-11 tablet by ity of tablet 00:00: mouth [place] 00 daily. Medical Branch benzonatate 2020-0 Yes [id number] 100mg Take 1 [facility] 100 mg 6-11 capsule by ity of capsule 00:00: mouth 3 [place] 00 (three) Medical times [place] daily as needed for Cough. montelukast 2020-0 2020- No [id number] 10mg Take 1 [facility] 10 mg 6-11 07-21 tablet by ity of tablet 00:00: 00:00 mouth [place] 00 :00 daily. Medical Branch loratadine 2019-0 2020- No [id number] 10mg Take 1 [facility] 10 mg 6-11 07-21 tablet by ity of tablet 00:00: 00:00 mouth [place] 00 :00 daily. Medical Branch benzonatate 2019-0 2020- No [id number] 100mg Take 1 [facility] 100 mg 6-11 07-21 capsule by ity of capsule 00:00: 00:00 mouth 3 [place] 00 :00 (three) Medical times [place] daily as needed for Cough. montelukast 2019-0 2019- No [id number] 10mg Take 1 [facility] 10 mg 6-11 07-21 tablet by ity of tablet 00:00: 00:00 mouth [place] 00 :00 daily. Medical Branch loratadine 2019-0 2019- No [id number] 10mg Take 1 [facility] 10 mg 6-11 07-21 tablet by ity of tablet 00:00: 00:00 mouth [place] 00 :00 daily. Medical Branch benzonatate 2019-0 2020- No [id number] 100mg Take 1 [facility] 100 mg 6-11 07-21 capsule by ity of capsule 00:00: 00:00 mouth 3 [place] 00 :00 (three) Medical times [place] daily as needed for Cough. QUEtiapine 2019-0 2020- No TAKE 1 Univ ers 25 mg 6- 07-21 TABLET BY ity of tablet 00:00: 00:00 MOUTH [place]CE [place] 00 :[place] DAILY AT Medical BEDTIME Branch QUEtiapine 2019-0 2020- No TAKE 1 Univ [...] Branch injection 2315, 120 mL Routine guaiFENesin 2020-0 2020- No 200mg 200 mg, U nivers 100 mg/5 mL - 05-22 Oral, ity of solution 23:30: 00:27 ONCE, 1 [place] 200 mg 00 :00 dose, [facility] 07/28/19 at Branch 1845, SHAY[place] albuterol 2019- 2020- No 2{puff} 2 Puff, U nivers (VENTOLIN) 07-27- Inhalation it y of inhaler 2 23:30: 00:28 , ONCE, 1 [place] Puff 00 :00 dose, [facility] 07/28/19 at Branch 1845, SHAYNA
Is this order for a patient with suspected or confirmed COVID-19 infection? Yes dextrometho 2019-0 Yes [id number] 10mL Take 10 mL Univers rphan-guaif 5-21 by mouth ity of enesin 00:00: every 8 [place] 10-100 mg/5 00 (eight) Medic al mL solution hours as Bran ch needed for Cough. albuterol 2019-0 Yes [id number] 2{puff} Inhale 2 [facility] 90 5-21 Puffs ity of mcg/actuati 00:00: every 4 [place] on inhaler 00 (four) Medical hours as Branch needed for Wheezing, Shortness of Breath or Chest tightness. dextrometho 2019-0 Yes [id number] 10mL Take 10 mL [facility] rphan-guaif 5-21 by mouth ity of enesin 00:00: every 8 [place] 10-100 mg/5 00 (eight) Medic al mL solution hours as Bran ch needed for Cough. albuterol 2019-0 Yes [id number] 2{puff} Inhale 2 [facility] 90 5-21 Puffs ity of mcg/actuati 00:00: every 4 [place] on inhaler 00 (four) Medical hours as Branch needed for Wheezing, Shortness of Breath or Chest tightness. dextrometho 2020-0 Yes [id number] 10mL Take 10 mL [facility] rphan-guaif 5-21 by mouth ity of enesin 00:00: every 8 [place] 10-100 mg/5 00 (eight) Medic al mL solution hours as Bran ch needed for Cough. albuterol 2019-0 Yes [id number] 2{puff} Inhale 2 [facility] 90 5-21 Puffs ity of mcg/actuati 00:00: every 4 [place] on inhaler 00 (four) Medical hours as Branch needed for Wheezing, Shortness of Breath or Chest tightness. dextrometho 2020-0 Yes [id number] 10mL Take 10 mL [facility] rphan-guaif 5-21 by mouth ity of enesin 00:00: every 8 [place] 10-100 mg/5 00 (eight) Medic al mL solution hours as Bran ch needed for Cough. albuterol 2019-0 Yes [id number] 2{puff} Inhale 2 [facility] 90 5-21 Puffs ity of mcg/actuati 00:00: every 4 [place] on inhaler 00 (four) Medical hours as Branch needed for Wheezing, Shortness of Breath or Chest tightness. dextrometho 2019-0 Yes [id number] 10mL Take 10 mL [facility] rphan-guaif 5-21 by mouth ity of enesin 00:00: every 8 [place] 10-100 mg/5 00 (eight) Medic al mL solution hours as Bran ch needed for Cough. albuterol Yes [id number] 2{puff} Inhale 2 [facility] 90 5-21 Puffs ity of mcg/actuati 00:00: every 4 [place] on inhaler 00 (four) Medical hours as Branch needed for Wheezing, Shortness of Breath or Chest tightness. dextrometho 0 2020- No [id number] 10mL Take 10 mL [facility] rphan-guaif 5-21 07-21 by mouth ity of enesin 00:00: 00:00 every 8 [place] 10-100 mg/5 00 :00 (eight) Medic al mL solution hours as Bran ch needed for Cough. albuterol 2019- No [id number] 2{puff} Inhale 2 [facility] 90 5-21 07-21 Puffs ity of mcg/actuati 00:00: 00:00 every 4 [place] on inhaler 00 :00 (four) Medical hours as Branch needed for Wheezing, Shortness of Breath or Chest tightness. dextrometho 0 2019- No [id number] 10mL Take 10 mL [facility] rphan-guaif 5-21 07-21 by mouth ity of enesin 00:00: 00:00 every 8 [place] 10-100 mg/5 00 :00 (eight) Medic al mL solution hours as Bran ch needed for Cough. albuterol 0 2020- No [id number] 2{puff} Inhale 2 [facility] 90 5-21 07-21 Puffs ity of mcg/actuati 00:00: 00:00 every 4 [place] on inhaler 00 :00 (four) Medical hours as Branch needed for Wheezing, Shortness of Breath or Chest tightness. predniSONE 2019- 2020- No [id number] 30mg Take 3 [facility] 10 mg 5-21 05-26 tablets by ity of tablet 00:00: 04:59 mouth [place] 00 :00 daily for Medical 4 days. Branch predniSONE 2019- 2020- No [id number] 30mg Take 3 [facility] 10 mg 5-21 05-26 tablets by ity of tablet 00:00: 04:59 mouth [place] 00 :00 daily for Medical 4 days. Branch levonorgest 2019-0 Yes [id number] 1{tbl} Take 1 [facility] rel-ethinyl 5-11 tablet by ity of estradiol 00:00: mouth [place] (SRONYX) 00 daily. Medical 0.1-20 Branch mg-mcg per tablet levonorgest 2020-0 Yes [id number] 1{tbl} Take 1 [facility] rel-ethinyl 5-11 tablet by ity of estradiol 00:00: mouth [place] (SRONYX) 00 daily. Medical 0.1-20 Branch mg-mcg per tablet levonorgest 2020-0 Yes [id number] 1{tbl} Take 1 [facility] rel-ethinyl 5-11 tablet by ity of estradiol 00:00: mouth [place] (SRONYX) 00 daily. Medical 0.1-20 Branch mg-mcg per tablet levonorgest 2020-0 Yes [id number] 1{tbl} Take 1 [facility] rel-ethinyl 5-11 tablet by ity of estradiol 00:00: mouth [place] (SRONYX) 00 daily. Medical 0.1-20 Branch mg-mcg per tablet levonorgest 2020-0 Yes [id number] 1{tbl} Take 1 [facility] rel-ethinyl 5-11 tablet by ity of estradiol 00:00: mouth [place] (SRONYX) 00 daily. Medical 0.1-20 Branch mg-mcg per tablet levonorgest 2020-0 Yes [id number] 1{tbl} Take 1 [facility] rel-ethinyl 5-11 tablet by ity of estradiol 00:00: mouth [place] (SRONYX) 00 daily. Medical 0.1-20 Branch mg-mcg per tablet levonorgest 2020- No [id number] 1{tbl} Take 1 [facility] rel-ethinyl -01 13-21 tablet by it y of estradiol 00:00: 00:00 mouth [place] (SRONYX) 00 :00 daily. Medical 0.1-20 Branch mg-mcg per tablet levonorgest 2020- No [id number] 1{tbl} Take 1 [facility] rel-ethinyl -01 13- tablet by it y of estradiol 00:00: 00:00 mouth [place] (SRONYX) 00 :00 daily. Medical 0.1-20 Branch mg-mcg per tablet divalproex 2020- No TAKE 1 Univ ers ER 500 mg 07-12 TABLET BY ity of 24 hr 00:00: 00:00 MOUTH ONCE [place] tablet 00 :00 DAILY AT [facility] BEDTIME [place] divalproex 2020- No TAKE 1 Univ ers ER 500 mg 07-12 TABLET BY ity of 24 hr 00:00: 00:00 MOUTH ONCE [place] tablet 00 :00 DAILY AT [facility] BEDTIME [place] acetaminoph 2020- No 1{tbl} 1 tablet, Univers en-codeine 06-26-20 Oral, ity of (TYLENOL 01:45: 01:56 ONCE, 1 [place] #3) 300-30 00 :00 dose, [facility] tablet 1 06/26/19 at Br anch tablet 2044, SHAYNA ketorolac 2019- No 30mg 30 mg, Unive rs (TORADOL) -26 06-20 Intramuscu ity of injection 00:30: 00:37 [place], ONCE, [place] 30 mg 00 :00 1 dose, [facility] 06/26/19 at 1930, SHAYNA
[facility] CIARA LORY I naproxen 2019-0 Yes [id number] 500mg Take 1 [place] (NAPROSYN) 4- tablet by ity of 500 mg 00:00: mouth 2 [place] tablet 00 (two) Medical times [place] daily with meals. naproxen 2020-0 Yes [id number] 500mg Take 1 [place] (NAPROSYN) 4-19 tablet by ity of 500 mg 00:00: mouth 2 [place] tablet 00 (two) Medical times Branch daily with meals. naproxen 2020-0 Yes [id number] 500mg Take 1 [place] (NAPROSYN) 4-19 tablet by ity of 500 mg 00:00: mouth 2 [place] tablet 00 (two) Medical times Branch daily with meals. naproxen 2020-0 Yes [id number] 500mg Take 1 [place] (NAPROSYN) 4-19 tablet by ity of 500 mg 00:00: mouth 2 [place] tablet 00 (two) Medical times Branch daily with meals. naproxen 2020-0 Yes [id number] 500mg Take 1 [place] (NAPROSYN) 4-19 tablet by ity of 500 mg 00:00: mouth 2 [place] tablet 00 (two) Medical times Branch daily with meals. naproxen 2020-0 Yes [id number] 500mg Take 1 [place] (NAPROSYN) 4-19 tablet by ity of 500 mg 00:00: mouth 2 [place] tablet 00 (two) Medical times Branch daily with meals. naproxen 2020-0 Yes [id number] 500mg Take 1 [place] (NAPROSYN) 4-19 tablet by ity of 500 mg 00:00: mouth 2 [place] tablet 00 (two) Medical times Branch daily with meals. naproxen 2020-0 2020- No [id number] 500mg Take 1 U nivers (NAPROSYN) 4-19 07-21 tablet by ity of 500 mg 00:00: 00:00 mouth 2 [place] tablet 00 :00 (two) Medical times Branch daily with meals. naproxen 2020-0 2020- No [id number] 500mg Take 1 U nivers (NAPROSYN) 4-19 07-21 tablet by ity of 500 mg 00:00: 00:00 mouth 2 [place] tablet 00 :00 (two) Medical times Branch daily with meals. cephALEXin 2020-0 2020- No [id number] 500mg Take 1 Univers (KEFLEX) 4-19 04-30 capsule by ity of 500 mg 00:00: 04:59 mouth 2 [place] capsule 00 :00 (two) Medical times Branch daily for 10 days. azithromyci 2020-0 2020- No [id number] 1000mg Take 2 Univers n 3-12 03-13 tablets by ity of (ZITHROMAX) 00:00: 04:59 mouth once [place] 500 mg 00 :00 now for 1 Medical tablet dose. Branch Nitrofurant 2019-0 2020- No [id number] 100mg Take 1 [facility] oin&Nit. 3-10 -18 capsule by ity of Macrocryst 00:00: 04:59 mouth 2 [place] (MACROBID) 00 :00 (two) Medical 100 mg times Branch capsule daily for 7 days. Nitrofurant 2019-0 2020- No [id number] 100mg Take 1 [facility] oin&Nit. 3-10 -18 capsule by ity of Macrocryst 00:00: 04:59 mouth 2 [place] (MACROBID) 00 :00 (two) Medical 100 mg times Branch capsule daily for 7 days. Nitrofurant 2019-0 2020- No [id number] 100mg Take 1 [facility] oin&Nit. 3-10 -18 capsule by ity of Macrocryst 00:00: 04:59 mouth 2 [place] (MACROBID) 00 :00 (two) Medical 100 mg times Branch capsule daily for 7 days. Nitrofurant 2019-0 2020- No [id number] 100mg Take 1 [facility] oin&Nit. 3-10 -18 capsule by ity of Macrocryst 00:00: 04:59 mouth 2 [place] (MACROBID) 00 :00 (two) Medical 100 mg times Branch capsule daily for 7 days. levETIRAcet 2019- 2020- No 1500mg 1,500 mg, Univers am (KEPPRA) 2-02 07-12 Oral, ity of tablet 20:15: 19:20 ONCE, 1 [place] 1,500 mg 00 :00 dose, Wed Medica l 04/20/19 at Branch 1415, Routine levETIRAcet 2020-0 Yes [id number] 1500mg Take 2 Univers am (KEPPRA) 2-12 tablets by it y of 750 mg 00:00: mouth 2 [place] tablet 00 (two) Medical times [place] daily. levETIRAcet 2020-0 Yes [id number] 1500mg Take 2 [facility] am (KEPPRA) 2-12 tablets by it y of 750 mg 00:00: mouth 2 [place] tablet 00 (two) Medical times Branch daily. levETIRAcet 2020-0 Yes [id number] 1500mg Take 2 [facility] am (KEPPRA) 2-12 tablets by it y of 750 mg 00:00: mouth 2 [place] tablet 00 (two) Medical times Branch daily. levETIRAcet 2020-0 Yes [id number] 1500mg Take 2 [facility] am (KEPPRA) 2-12 tablets by it y of 750 mg 00:00: mouth 2 [place] tablet 00 (two) Medical times Branch daily. levETIRAcet 2020-0 Yes [id number] 1500mg Take 2 [facility] am (KEPPRA) 2-12 tablets by it y of 750 mg 00:00: mouth 2 [place] tablet 00 (two) Medical times Branch daily. levETIRAcet 2020-0 Yes [id number] 1500mg Take 2 [facility] am (KEPPRA) 2-12 tablets by it y of 750 mg 00:00: mouth 2 [place] tablet 00 (two) Medical times Branch daily. levETIRAcet 2020-0 Yes [id number] 1500mg Take 2 [facility] am (KEPPRA) 2-12 tablets by it y of 750 mg 00:00: mouth 2 [place] tablet 00 (two) Medical times Branch daily. levETIRAcet 2020-0 Yes [id number] 1500mg Take 2 [facility] am (KEPPRA) 2-12 tablets by it y of 750 mg 00:00: mouth 2 [place] tablet 00 (two) Medical times Branch daily. levETIRAcet 2020-0 Yes [id number] 1500mg Take 2 [facility] am (KEPPRA) 2-12 tablets by it y of 750 mg 00:00: mouth 2 [place] tablet 00 (two) Medical times Branch daily. levETIRAcet 2020-0 Yes [id number] 1500mg Take 2 [facility] am (KEPPRA) 2-12 tablets by it y of 750 mg 00:00: mouth 2 [place] tablet 00 (two) Medical times Branch daily. levETIRAcet 2020-0 Yes [id number] 1500mg Take 2 [facility] am (KEPPRA) 2-12 tablets by it y of 750 mg 00:00: mouth 2 [place] tablet 00 (two) Medical times Branch daily. levETIRAcet 2020-0 Yes [id number] 1500mg Take 2 [facility] am (KEPPRA) 2-12 tablets by it y of 750 mg 00:00: mouth 2 [place] tablet 00 (two) Medical times Branch daily. levETIRAcet 2020-0 Yes [id number] 1500mg Take 2 [facility] am (KEPPRA) 2-12 tablets by it y of 750 mg 00:00: mouth 2 [place] tablet 00 (two) Medical times Branch daily. levETIRAcet 2020-0 Yes [id number] 1500mg Take 2 [facility] am (KEPPRA) 2-12 tablets by it y of 750 mg 00:00: mouth 2 [place] tablet 00 (two) Medical times Branch daily. levETIRAcet 2020-0 Yes [id number] 1500mg Take 2 [facility] am (KEPPRA) 2-12 tablets by it y of 750 mg 00:00: mouth 2 [place] tablet 00 (two) Medical times Branch daily. levETIRAcet 2020-0 Yes [id number] 1500mg Take 2 [facility] am (KEPPRA) 2-12 tablets by it y of 750 mg 00:00: mouth 2 [place] tablet 00 (two) Medical times Branch daily. levETIRAcet 2020-0 Yes [id number] 1500mg Take 2 [facility] am (KEPPRA) 2-12 tablets by it y of 750 mg 00:00: mouth 2 [place] tablet 00 (two) Medical times Branch daily. levETIRAcet 2020-0 Yes [id number] 1500mg Take 2 [facility] am (KEPPRA) 2-12 tablets by it y of 750 mg 00:00: mouth 2 [place] tablet 00 (two) Medical times Branch daily. levETIRAcet 2020-0 Yes [id number] 1500mg Take 2 [facility] am (KEPPRA) 2-12 tablets by it y of 750 mg 00:00: mouth 2 [place] tablet 00 (two) Medical times Branch daily. levETIRAcet 2020-0 Yes [id number] 1500mg Take 2 [facility] am (KEPPRA) 2-12 tablets by it y of 750 mg 00:00: mouth 2 [place] tablet 00 (two) Medical times Branch daily. levETIRAcet 2020-0 Yes [id number] 1500mg Take 2 [facility] am (KEPPRA) 2-12 tablets by it y of 750 mg 00:00: mouth 2 [place] tablet 00 (two) Medical times Branch daily. levETIRAcet 2020-0 Yes [id number] 1500mg Take 2 [facility] am (KEPPRA) 2-12 tablets by it y of 750 mg 00:00: mouth 2 [place] tablet 00 (two) Medical times Branch daily. levETIRAcet 2020-0 Yes [id number] 1500mg Take 2 [facility] am (KEPPRA) 2-12 tablets by it y of 750 mg 00:00: mouth 2 [place] tablet 00 (two) Medical times Branch daily. levETIRAcet 2019-0 2020- No [id number] 1500mg Take 2 [facility] am (KEPPRA) 2-12 07-21 tablets by i ty of 750 mg 00:00: 00:00 mouth 2 [place] tablet 00 :00 (two) Medical times Branch daily. levETIRAcet 2020-0 2020- No [id number] 1500mg Take 2 [facility] am (KEPPRA) 2-12 -21 tablets by i ty of 750 mg 00:00: 00:00 mouth 2 [place] tablet 00 :00 (two) Medical times Branch daily. azithromyci 2020-0 2020- No [id number] 1000mg Take 2 [facility] n 500 mg -14 -16 tablets by ity of tablet 00:00: 05:59 mouth [place] 00 :00 daily for Medical 1 day. Branch azithromyci 2019-0 2019- No [id number] 1000mg Take 2 [facility] n 500 mg -14 -16 tablets by ity of tablet 00:00: 05:59 mouth [place] 00 :00 daily for Medical 1 day. Branch NUVARING Yes [id number] 1{each} Insert 1 [facility] 0.12-0.015 4-15 Each into ity of mg/24 hr 00:00: vagina [place] vaginal 00 once every Medica l insert month. Branch Insert vaginally and leave in place for 3 consecutiv e weeks, then remove for 1 week. NUVARING Yes [id number] 1{each} Insert 1 [facility] 0.12-0.015 4-15 Each into ity of mg/24 hr 00:00: vagina [place] vaginal 00 once every Medica l insert month. Branch Insert vaginally and leave in place for 3 consecutiv e weeks, then remove for 1 week. NUVARING Yes [id number] 1{each} Insert 1 [facility] 0.12-0.015 4-15 Each into ity of mg/24 hr 00:00: vagina [place] vaginal 00 once every Medica l insert month. Branch Insert vaginally and leave in place for 3 consecutiv e weeks, then remove for 1 week. NUVARING Yes [id number] 1{each} Insert 1 [facility] 0.12-0.015 4-15 Each into ity of mg/24 hr 00:00: vagina [place] vaginal 00 once every Medica l insert month. Branch Insert vaginally and leave in place for 3 consecutiv e weeks, then remove for 1 week. NUVARING Yes [id number] 1{each} Insert 1 [facility] 0.12-0.015 4-15 Each into ity of mg/24 hr 00:00: vagina [place] vaginal 00 once every Medica l insert month. Branch Insert vaginally and leave in place for 3 consecutiv e weeks, then remove for 1 week. NUVARING Yes [id number] 1{each} Insert 1 [facility] 0.12-0.015 4-15 Each into ity of mg/24 hr 00:00: vagina [place] vaginal 00 once every Medica l insert month. Branch Insert vaginally and leave in place for 3 consecutiv e weeks, then remove for 1 week. NUVARING 2019- No [id number] 1{each} Insert 1 [facility] 0.12-0.015 4-15 03-10 Each into ity of mg/24 hr 00:00: 00:00 vagina [place] vaginal 00 :00 once every Medica l insert month. Branch Insert vaginally and leave in place for 3 consecutiv e weeks, then remove for 1 week. NUVARING 2019- No [id number] 1{each} Insert 1 [facility] 0.12-0.015 4-15 03-10 Each into ity of mg/24 hr 00:00: 00:00 vagina [place] vaginal 00 :00 once every Medica l insert month. Branch Insert vaginally and leave in place for 3 consecutiv e weeks, then remove for 1 week. sulfamethox 2018- Yes [id number] 1{tbl} Take 1 [facility] azole-trime 3- [id number] tablet by i ty of thoprim 00:00: mouth [place] 800-160 mg 00 every 12 Medic al per tablet (twelve) Branc h hours. traMADOL Yes [id number] 50mg Take 1 [facility] (ULTRAM) 50 3-29 [id number] tablet by i ty of mg tablet 00:00: mouth [place] 00 every 6 Medical (six) Branch hours as needed for Pain (scale 4-6). sulfamethox 2019-0 Yes [id number] 1{tbl} Take 1 [facility] azole-trime 3-29 [id number] tablet by i ty of thoprim 00:00: mouth [place] 800-160 mg 00 every 12 Medic al per tablet (twelve) Branc h hours. traMADOL 2019-0 Yes [id number] 50mg Take 1 [facility] (ULTRAM) 50 3-29 [id number] tablet by i ty of mg tablet 00:00: mouth [place] 00 every 6 Medical (six) Branch hours as needed for Pain (scale 4-6). sulfamethox 2019-0 Yes [id number] 1{tbl} Take 1 [facility] azole-trime 3-29 [id number] tablet by i ty of thoprim 00:00: mouth [place] 800-160 mg 00 every 12 Medic al per tablet (twelve) Branc h hours. traMADOL 2019-0 Yes [id number] 50mg Take 1 [facility] (ULTRAM) 50 3-29 [id number] tablet by i ty of mg tablet 00:00: mouth [place] 00 every 6 Medical (six) Branch hours as needed for Pain (scale 4-6). sulfamethox 2019-0 Yes [id number] 1{tbl} Take 1 [facility] azole-trime 3-29 [id number] tablet by i ty of thoprim 00:00: mouth [place] 800-160 mg 00 every 12 Medic al per tablet (twelve) Branc h hours. traMADOL 2019-0 Yes [id number] 50mg Take 1 [facility] (ULTRAM) 50 3-29 [id number] tablet by i ty of mg tablet 00:00: mouth [place] 00 every 6 Medical (six) Branch hours as needed for Pain (scale 4-6). sulfamethox 2019-0 Yes [id number] 1{tbl} Take 1 [facility] azole-trime 3-29 [id number] tablet by i ty of thoprim 00:00: mouth [place] 800-160 mg 00 every 12 Medic al per tablet (twelve) Branc h hours. traMADOL 2019-0 Yes [id number] 50mg Take 1 [facility] (ULTRAM) 50 3-29 [id number] tablet by i ty of mg tablet 00:00: mouth [place] 00 every 6 Medical (six) Branch hours as needed for Pain (scale 4-6). sulfamethox 2019-0 Yes [id number] 1{tbl} Take 1 [facility] azole-trime 3-29 [id number] tablet by i ty of thoprim 00:00: mouth [place] 800-160 mg 00 every 12 Medic al per tablet (twelve) Branc h hours. traMADOL 2019- Yes [id number] 50mg Take 1 [facility] (ULTRAM) 50 3-29 [id number] tablet by i ty of mg tablet 00:00: mouth [place] 00 every 6 Medical (six) Branch hours as needed for Pain (scale 4-6). sulfamethox 2019- 2020- No [id number] 1{tbl} Take 1 [facility] azole-trime 3-29 03-10 [id number] tablet by ity of thoprim 00:00: 00:00 mouth [place] 800-160 mg 00 :00 every 12 Medic al per tablet (twelve) Branc h hours. traMADOL 2018- 2020- No [id number] 50mg Take 1 [facility] (ULTRAM) 50 3- 03-10 [id number] tablet by ity of mg tablet 00:00: 00:00 mouth [place] 00 :00 every 6 Medical (six) Branch hours as needed for Pain (scale 4-6). sulfamethox 2019-0 2020- No [id number] 1{tbl} Take 1 [facility] azole-trime 3-29 03-10 [id number] tablet by ity of thoprim 00:00: 00:00 mouth [place] 800-160 mg 00 :00 every 12 Medic al per tablet (twelve) Branc h hours. traMADOL 2018- 2020- No [id number] 50mg Take 1 [facility] (ULTRAM) 50 3-29 03-10 [id number] tablet by ity of mg tablet 00:00: 00:00 mouth [place] 00 :00 every 6 Medical (six) Branch hours as needed for Pain (scale 4-6). Immunizations Ordered Filled Immunization Date Status Comments [facility] e Immunization Name Name HPV9 2019-12-30 Completed University of 00:00:00 [facility] HPV9 2019-12-30 Completed [facility] of 00:00:00 [facility] HPV9 2019-12-30 Completed [facility] of 00:00:00 [facility] HPV9 2019-12-30 Completed [facility] of 00:00:00 [facility] HPV9 2019-12-30 Completed University of 00:00:00 [facility] HPV9 2019-12-30 Completed University of 00:00:00 [...] Branch HPV9 2019-12-30 Completed University of 00:00:00 [facility] HPV9 2019-12-30 Completed [facility] of 00:00:00 [facility] HPV9 2019-12-30 Completed [facility] of 00:00:00 [facility] HPV9 2019-12-30 Completed [facility] of 00:00:00 [facility] HPV9 2019-12-30 Completed [facility] of 00:00:00 [facility] HPV9 2019-12-30 Completed [facility] of 00:00:00 [facility] HPV9 2019-12-30 Completed [facility] of 00:00:00 [facility] HPV9 2019-12-30 Completed [facility] of 00:00:00 [facility] HPV9 2019-12-30 Completed [facility] of 00:00:00 [facility] HPV9 2019-12-30 Completed [facility] of 00:00:00 [facility] HPV9 2019-12-30 Completed [facility] of 00:00:00 [facility] HPV9 2019-09-27 Completed [facility] of 00:00:00 [facility] HPV9 2019-09-27 Completed [facility] of 00:00:00 [facility] HPV9 2019-09-27 Completed [facility] of 00:00:00 [facility] HPV9 2019-09-27 Completed [facility] of 00:00:00 [facility] HPV9 2019-09-27 Completed [facility] of 00:00:00 [facility] HPV9 2019-09-27 Completed [facility] of 00:00:00 [facility] HPV9 2019-09-27 Completed [facility] of 00:00:00 [facility] HPV9 2019-09-27 Completed [facility] of 00:00:00 [facility] HPV9 2019-09-27 Completed [facility] of 00:00:00 [facility] HPV9 2019-09-27 Completed [facility] of 00:00:00 [facility] HPV9 2019-09-27 Completed [facility] of 00:00:00 [facility] HPV9 2019-09-27 Completed [facility] of 00:00:00 [facility] HPV9 2019-09-27 Completed [facility] of 00:00:00 [facility] HPV9 2019-09-27 Completed [facility] of 00:00:00 [facility] HPV9 2019-09-27 Completed [facility] of 00:00:00 [facility] HPV9 2019-09-27 Completed [facility] of 00:00:00 [facility] HPV9 2019-09-27 Completed [facility] of 00:00:00 [facility] HPV9 2019-09-27 Completed [facility] of 00:00:00 [facility] HPV9 2019-09-27 Completed [facility] of 00:00:00 [facility] HPV9 2019-09-27 Completed [facility] of 00:00:00 [facility] HPV9 2019-09-27 Completed [facility] of 00:00:00 [facility] HPV9 2019-09-27 Completed [facility] of 00:00:00 [facility] HPV9 2019-09-27 Completed [facility] of 00:00:00 [facility] HPV9 2019-09-27 Completed [facility] of 00:00:00 [facility] HPV9 2019-09-27 Completed [facility] of 00:00:00 [facility] HPV9 2019-09-27 Completed [facility] of 00:00:00 [facility] HPV9 2019-09-27 Completed [facility] of 00:00:00 [facility] HPV9 2019-09-27 Completed [facility] of 00:00:00 [facility] HPV9 2019-09-27 Completed [facility] of 00:00:00 [facility] HPV9 2019-09-27 Completed [facility] of 00:00:00 [facility] HPV9 2019-09-27 Completed [facility] of 00:00:00 [facility] HPV9 2019-09-27 Completed [facility] of 00:00:00 [facility] HPV9 2019-09-27 Completed [facility] of 00:00:00 [facility] HPV9 2019-09-27 Completed [facility] of 00:00:00 [facility] HPV9 2019-09-27 Completed [facility] of 00:00:00 [facility] HPV9 2019-09-27 Completed [facility] of 00:00:00 [facility] HPV9 2019-09-27 Completed [facility] of 00:00:00 [facility] HPV9 2019-09-27 Completed [facility] of 00:00:00 [facility] HPV9 2019-09-27 Completed [facility] of 00:00:00 [facility] HPV9 2019-09-27 Completed [facility] of 00:00:00 [facility] HPV9 2019-09-27 Completed [facility] of 00:00:00 [facility] HPV9 2019-09-27 Completed [facility] of 00:00:00 [facility] HPV9 2019-09-27 Completed [facility] of 00:00:00 [facility] HPV9 2019-09-27 Completed [facility] of 00:00:00 [facility] HPV9 2019-09-27 Completed [facility] of 00:00:00 [facility] HPV9 2019-09-27 Completed [facility] of 00:00:00 [facility] HPV9 2019-09-27 Completed [facility] of 00:00:00 [facility] HPV9 2019-09-27 Completed [facility] of 00:00:00 [facility] HPV9 2019-09-27 Completed [facility] of 00:00:00 [facility] HPV9 2019-09-27 Completed [facility] of 00:00:00 [facility] HPV9 2019-09-27 Completed [facility] of 00:00:00 [facility] HPV9 2019-09-27 Completed [facility] of 00:00:00 [place] [facility] HPV9 2019-09-27 Completed [facility] of 00:00:00 [facility] HPV9 2019-09-27 Completed [facility] of 00:00:00 [facility] HPV9 2019-05-17 Completed [facility] of 00:00:00 [facility] HPV9 2019-05-17 Completed [facility] of 00:00:00 [facility] HPV9 2019-05-17 Completed [facility] of 00:00:00 [facility] HPV9 2019-05-17 Completed University of [...] HPV9 2019-05-17 Completed [facility] of 00:00:00 [facility] HPV9 2019-05-17 Completed [facility] of 00:00:00 [facility] TDAP (ADACEL) 2018-02-15 Completed University of VACCINE 00:00:00 [facility] TDAP (ADACEL) 2018-02-15 Completed University of VACCINE 00:00:00 [facility] TDAP (ADACEL) 2018-02-15 Completed University of VACCINE 00:00:00 [facility] TDAP (ADACEL) 2018-02-15 Completed University of VACCINE 00:00:00 [facility] TDAP (ADACEL) 2018-02-15 Completed University of VACCINE 00:00:00 [facility] TDAP (ADACEL) 2018-02-15 Completed University of VACCINE 00:00:00 [facility] TDAP (ADACEL) 2018-02-15 Completed University of VACCINE 00:00:00 [facility] TDAP (ADACEL) 2018-02-15 Completed University of VACCINE 00:00:00 [facility] TDAP (ADACEL) 2018-02-15 Completed University of VACCINE 00:00:00 [facility] TDAP (ADACEL) 2018-02-15 Completed University of VACCINE 00:00:00 [facility] TDAP (ADACEL) 2018-02-15 Completed University of VACCINE 00:00:00 [facility] TDAP (ADACEL) 2018-02-15 Completed University of VACCINE 00:00:00 [facility] TDAP (ADACEL) 2018-02-15 Completed University of VACCINE 00:00:00 [facility] TDAP (ADACEL) 2018-02-15 Completed University of VACCINE 00:00:00 [facility] TDAP (ADACEL) 2018-02-15 Completed University of VACCINE 00:00:00 [facility] TDAP (ADACEL) 2018-02-15 Completed University of VACCINE 00:00:00 [facility] TDAP (ADACEL) 2018-02-15 Completed University of VACCINE 00:00:00 [facility] TDAP (ADACEL) 2018-02-15 Completed University of VACCINE 00:00:00 [facility] TDAP (ADACEL) 2018-02-15 Completed University of VACCINE 00:00:00 [facility] TDAP (ADACEL) 2018-02-15 Completed University of VACCINE 00:00:00 [facility] TDAP (ADACEL) 2018-02-15 Completed University of VACCINE 00:00:00 [facility] TDAP (ADACEL) 2018-02-15 Completed University of VACCINE 00:00:00 [facility] TDAP (ADACEL) 2018-02-15 Completed University of VACCINE 00:00:00 [place] [facility] TDAP (ADACEL) 2018-02-15 Completed University of VACCINE 00:00:00 [facility] TDAP (ADACEL) 2018-02-15 Completed University of VACCINE 00:00:00 [facility] TDAP (ADACEL) 2018-02-15 Completed University of VACCINE 00:00:00 [facility] TDAP (ADACEL) 2018-02-15 Completed University of VACCINE 00:00:00 [facility] TDAP (ADACEL) 2018-02-15 Completed University of VACCINE 00:00:00 [facility] TDAP (ADACEL) 2018-02-15 Completed University of VACCINE 00:00:00 [facility] TDAP (ADACEL) 2018-02-15 Completed University of VACCINE 00:00:00 [facility] TDAP (ADACEL) 2018-02-15 Completed University of VACCINE 00:00:00 [facility] TDAP (ADACEL) 2018-02-15 Completed University of VACCINE 00:00:00 [facility] TDAP (ADACEL) 2018-02-15 Completed University of VACCINE 00:00:00 [facility] TDAP (ADACEL) 2018-02-15 Completed University of VACCINE 00:00:00 [facility] TDAP (ADACEL) 2018-02-15 Completed University of VACCINE 00:00:00 [facility] TDAP (ADACEL) 2018-02-15 Completed University of VACCINE 00:00:00 [facility] TDAP (ADACEL) 2018-02-15 Completed [facility] of VACCINE 00:00:00 [facility] TDAP (ADACEL) 2018-02-15 Completed University of VACCINE 00:00:00 [facility] TDAP (ADACEL) 2018-02-15 Completed [facility] of VACCINE 00:00:00 [place] [facility] TDAP (ADACEL) 2018-02-15 Completed [facility] of VACCINE 00:00:00 [facility] TDAP (ADACEL) 2018-02-15 Completed University of VACCINE 00:00:00 [facility] TDAP (ADACEL) 2018-02-15 Completed University of VACCINE 00:00:00 [facility] TDAP (ADACEL) 2018-02-15 Completed [...] (ADACEL) 2018-02-15 Completed University of VACCINE 00:00:00 [facility] TDAP (ADACEL) 2018-02-15 Completed [facility] of VACCINE 00:00:00 [facility] TDAP (ADACEL) 2018-02-15 Completed [facility] of VACCINE 00:00:00 [facility] TDAP (ADACEL) 2018-02-15 Completed [facility] of VACCINE 00:00:00 [facility] TDAP (ADACEL) 2018-02-15 Completed [facility] of VACCINE 00:00:00 [facility] TDAP (ADACEL) 2018-02-15 Completed [facility] of VACCINE 00:00:00 [place] [facility] TDAP (ADACEL) 2018-02-15 Completed [facility] of VACCINE 00:00:00 [facility] TDAP (ADACEL) 2018-02-15 Completed [facility] of VACCINE 00:00:00 [facility] TDAP (ADACEL) 2018-02-15 Completed [facility] of VACCINE 00:00:00 [facility] TDAP (ADACEL) 2018-02-15 Completed [facility] of VACCINE 00:00:00 [facility] TDAP (ADACEL) 2018-02-15 Completed [facility] of VACCINE 00:00:00 [place] [facility] TDAP (ADACEL) 2018-02-15 Completed [facility] of VACCINE 00:00:00 [place] [facility] TDAP (ADACEL) 2018-02-15 Completed [facility] of VACCINE 00:00:00 [facility] TDAP (ADACEL) 2018-02-15 Completed [facility] of VACCINE 00:00:00 [facility] TDAP (ADACEL) 2018-02-15 Completed [facility] of VACCINE 00:00:00 [place] [facility] TDAP (ADACEL) 2018-02-15 Completed [facility] of VACCINE 00:00:00 [facility] TDAP (ADACEL) 2018-02-15 Completed [facility] of VACCINE 00:00:00 [facility] TDAP (ADACEL) 2018-02-15 Completed [facility] of VACCINE 00:00:00 [facility] TDAP (ADACEL) 2018-02-15 Completed [facility] of VACCINE 00:00:00 [facility] TDAP (ADACEL) 2018-02-15 Completed [facility] of VACCINE 00:00:00 [facility] TDAP (ADACEL) 2018-02-15 Completed [facility] of VACCINE 00:00:00 [facility] TDAP (ADACEL) 2018-02-15 Completed [facility] of VACCINE 00:00:00 [facility] TDAP (ADACEL) 2018-02-15 Completed [facility] of VACCINE 00:00:00 [facility] TDAP (ADACEL) 2018-02-15 Completed University of VACCINE 00:00:00 [facility] TDAP (ADACEL) 2018-02-15 Completed [facility] of VACCINE 00:00:00 [facility] TDAP (ADACEL) 2018-02-15 Completed [facility] of VACCINE 00:00:00 [facility] TDAP (ADACEL) 2018-02-15 Completed [facility] of VACCINE 00:00:00 [facility] TDAP (ADACEL) 2018-02-15 Completed [facility] of VACCINE 00:00:00 [facility] TDAP (ADACEL) 2018-02-15 Completed [facility] of VACCINE 00:00:00 [facility] TDAP (ADACEL) 2018-02-15 Completed [facility] of VACCINE 00:00:00 [facility] TDAP (ADACEL) 2018-02-15 Completed [facility] of VACCINE 00:00:00 [facility] TDAP (ADACEL) 2018-02-15 Completed [facility] of VACCINE 00:00:00 [facility] TDAP (ADACEL) 2018-02-15 Completed [facility] of VACCINE 00:00:00 [facility] Influenza Virus 2017-12-14 Completed Universit y of Vaccine [facility] IM 3+ 00:00:00 [facility] Influenza Virus 2017-12-14 Completed Universit y of Vaccine [facility] IM 3+ 00:00:00 [facility] Influenza Virus 2017-12-14 Completed [facility]it y of Vaccine [facility] IM 3+ 00:00:00 [facility] Influenza Virus 2017-12-14 Completed [facility]it y of Vaccine [facility] IM 3+ 00:00:00 [facility] Influenza Virus 2017-12-14 Completed [facility]it y of Vaccine [facility] IM 3+ 00:00:00 [facility] Influenza Virus 2017-12-14 Completed [facility]it y of Vaccine [facility] IM 3+ 00:00:00 [facility] Influenza Virus 2017-12-14 Completed [facility]it y of Vaccine [facility] IM 3+ 00:00:00 [facility] Influenza Virus 2017-12-14 Completed [facility]it y of Vaccine [facility] IM 3+ 00:00:00 [facility] Influenza Virus 2017-12-14 Completed [facility]it y of Vaccine [facility] IM 3+ 00:00:00 [facility] Influenza Virus 2017-12-14 Completed [facility]it y of Vaccine [facility] IM 3+ 00:00:00 [facility] Influenza Virus 2017-12-14 Completed [facility]it y of Vaccine [facility] IM 3+ 00:00:00 [facility] Influenza Virus 2017-12-14 Completed [facility]it y of Vaccine [facility] IM 3+ 00:00:00 [facility] Influenza Virus 2017-12-14 Completed [facility]it y of Vaccine [facility] IM 3+ 00:00:00 [facility] Influenza Virus 2017-12-14 Completed [facility]it y of Vaccine [facility] IM 3+ 00:00:00 [facility] Influenza Virus 2017-12-14 Completed [facility]it y of Vaccine [facility] IM 3+ 00:00:00 [facility] Influenza Virus 2017-12-14 Completed [facility]it y of Vaccine [facility] IM 3+ 00:00:00 [facility] Influenza Virus 2017-12-14 Completed [facility]it y of Vaccine [facility] IM 3+ 00:00:00 [facility] Influenza Virus 2017-12-14 Completed [facility]it y of Vaccine [facility] IM 3+ 00:00:00 [facility] Influenza Virus 2017-12-14 Completed [facility]it y of Vaccine [facility] IM 3+ 00:00:00 [facility] Influenza Virus 2017-12-14 Completed [facility]it y of Vaccine [facility] IM 3+ 00:00:00 [facility] Influenza Virus 2017-12-14 Completed [facility]it y of Vaccine [facility] IM 3+ 00:00:00 [facility] Influenza Virus 2017-12-14 Completed [facility]it y of Vaccine [facility] IM 3+ 00:00:00 [facility] Influenza Virus 2017-12-14 Completed [facility]it y of Vaccine [facility] IM 3+ 00:00:00 [facility] Influenza Virus 2017-12-14 Completed [facility]it y of Vaccine [facility] IM 3+ 00:00:00 [facility] Influenza Virus 2017-12-14 Completed [facility]it y of Vaccine [facility] IM 3+ 00:00:00 [facility] Influenza Virus 2017-12-14 Completed [facility] y of Vaccine [facility] IM 3+ 00:00:00 [facility] Influenza Virus 2017-12-14 Completed [facility] y of Vaccine [facility] IM 3+ 00:00:00 [facility] Influenza Virus 2017-12-14 Completed [facility]it y of Vaccine [facility] IM 3+ 00:00:00 [facility] Influenza Virus 2017-12-14 Completed [facility]it y of Vaccine [facility] IM 3+ 00:00:00 [facility] Influenza Virus 2017-12-14 Completed [facility]it y of Vaccine [facility] IM 3+ 00:00:00 [facility] Influenza Virus 2017-12-14 Completed [facility] y of Vaccine [facility] IM 3+ 00:00:00 [facility] Influenza Virus 2017-12-14 Completed [facility] y of Vaccine [facility] IM 3+ 00:00:00 [facility] Influenza Virus 2017-12-14 Completed [facility]it y of Vaccine [facility] IM 3+ 00:00:00 [facility] Influenza Virus 2017-12-14 Completed [facility] y of Vaccine [facility] IM 3+ 00:00:00 [facility] Influenza Virus 2017-12-14 Completed [facility] y of Vaccine [facility] IM 3+ 00:00:00 [facility] Influenza Virus 2017-12-14 Completed [facility] y of Vaccine [facility] IM 3+ 00:00:00 [facility] Influenza Virus 2017-12-14 Completed [facility]it y of Vaccine [facility] IM 3+ 00:00:00 [facility] Influenza Virus 2017-12-14 Completed [facility] y of Vaccine [facility] IM 3+ 00:00:00 [facility] Influenza Virus 2017-12-14 Completed [facility]it y of Vaccine [facility] IM 3+ 00:00:00 [facility] Influenza Virus 2017-12-14 Completed [facility] y of Vaccine [facility] IM 3+ 00:00:00 [facility] Influenza Virus 2017-12-14 Completed [facility] y of Vaccine [facility] IM 3+ 00:00:00 [facility] Influenza Virus 2017-12-14 Completed [facility] y of Vaccine [facility] IM 3+ 00:00:00 [facility] Influenza Virus 2017-12-14 Completed [facility] y of Vaccine [facility] IM 3+ 00:00:00 [facility] Influenza Virus 2017-12-14 Completed [facility] y of Vaccine [facility] IM 3+ 00:00:00 [facility] Influenza Virus 2017-12-14 Completed [facility] y of Vaccine [facility] IM 3+ 00:00:00 [facility] Influenza Virus 2017-12-14 Completed [facility] y of Vaccine [facility] IM 3+ 00:00:00 [facility] Influenza Virus 2017-12-14 Completed [facility] y of Vaccine [facility] IM 3+ 00:00:00 [facility] Influenza Virus 2017-12-14 Completed [facility] y of Vaccine [facility] IM 3+ 00:00:00 [facility] Influenza Virus 2017-12-14 Completed [facility] y of Vaccine [facility] IM 3+ 00:00:00 [facility] Influenza Virus 2017-12-14 Completed [facility] y of Vaccine [facility] IM 3+ 00:00:00 [facility] Influenza Virus 2017-12-14 Completed [facility] y of Vaccine [facility] IM 3+ 00:00:00 [facility] Influenza Virus 2017-12-14 Completed [facility] y of [facility]ine [facility] IM 3+ 00:00:00 [facility] Influenza Virus 2017-12-14 Completed [facility] y of Vaccine [facility] IM 3+ 00:00:00 [facility] Influenza Virus 2017-12-14 Completed [facility] y of Vaccine [facility] IM 3+ 00:00:00 [facility] Influenza Virus 2017-12-14 Completed [facility] y of Vaccine [facility] IM 3+ 00:00:00 [facility] Influenza Virus 2017-12-14 Completed [facility] y of [facility]ine [facility] IM 3+ 00:00:00 [facility] Influenza Virus 2017-12-14 Completed [facility] y of Vaccine [facility] IM 3+ 00:00:00 [facility] Influenza Virus 2017-12-14 Completed [facility] y of Vaccine [facility] IM 3+ 00:00:00 [facility] Influenza Virus 2017-12-14 Completed [facility] y of Vaccine [facility] IM 3+ 00:00:00 [facility] Influenza Virus 2017-12-14 Completed [facility] y of [facility]ine [facility] IM 3+ 00:00:00 [facility] Influenza Virus 2017-12-14 Completed [facility] y of Vaccine [facility] IM 3+ 00:00:00 [facility] Influenza Virus 2017-12-14 Completed [facility] y of [facility] 3+ 00:00:00 [facility] Influenza Virus 2017-12-14 Completed [facility] y of Vaccine [facility] IM 3+ 00:00:00 [facility] Influenza Virus 2017-12-14 Completed [facility] y of Vaccine [facility] IM 3+ 00:00:00 [facility] Influenza Virus 2017-12-14 Completed [facility] y of Vaccine [facility] IM 3+ 00:00:00 [facility] Influenza Virus 2017-12-14 Completed [facility] y of Vaccine [facility] IM 3+ 00:00:00 [facility] Influenza Virus 2017-12-14 Completed [facility] y of Vaccine [facility] IM 3+ 00:00:00 [facility] Influenza Virus 2017-12-14 Completed [facility] y of [facility]ine [facility] IM 3+ 00:00:00 [facility] Influenza Virus 2017-12-14 Completed [facility] y of [facility]ine [facility] IM 3+ 00:00:00 [facility] Influenza Virus 2017-12-14 Completed [facility] y of [facility] IM 3+ 00:00:00 [facility] Influenza Virus 2017-12-14 Completed [facility] y of [facility]ine [facility] IM 3+ 00:00:00 [facility] Influenza Virus 2017-12-14 Completed [facility] y of [facility] IM 3+ 00:00:00 [facility] Influenza Virus 2017-12-14 Completed [facility] y of [facility] IM 3+ 00:00:00 [facility] Influenza Virus 2017-12-14 Completed [facility] y of Vaccine [facility] IM 3+ 00:00:00 [facility] Influenza Virus 2017-12-14 Completed [facility] y of Vaccine [facility] IM 3+ 00:00:00 [facility] Influenza Virus 2017-12-14 Completed [facility] y of Vaccine [facility] IM 3+ 00:00:00 [facility] Influenza Virus 2017-12-14 Completed [facility] y of Vaccine [facility] IM 3+ 00:00:00 [facility] Influenza Virus 2017-12-14 Completed [facility] y of Vaccine [facility] IM 3+ 00:00:00 [facility] Influenza Virus 2017-12-14 Completed [facility] y of [facility]ine [facility] IM 3+ 00:00:00 [facility] Influenza Virus 2017-12-14 Completed [facility] y of [facility] IM 3+ 00:00:00 [facility] Influenza Virus 2017-12-14 Completed [facility] y [facility] IM 3+ 00:00:00 [facility] Influenza Virus 2017-12-14 Completed [facility] y of [facility] 3+ 00:00:00 [facility] Varicella 2016-05-24 Completed University [...] TDAP 2016-04-03 Completed [facility] of 00:00:00 [facility] TDAP 2016-04-03 Completed [facility] of 00:00:00 [facility] TDAP 2016-04-03 Completed [facility] of 00:00:00 [facility] TDAP 2016-04-03 Completed [facility] of 00:00:00 [facility] TDAP 2016-04-03 Completed [facility] of 00:00:00 [facility] TDAP 2016-04-03 Completed [facility] of 00:00:00 [facility] TDAP 2016-04-03 Completed [facility] of 00:00:00 [facility] TDAP 2016-04-03 Completed [facility] of 00:00:00 [facility] TDAP 2016-04-03 Completed [facility] of 00:00:00 [facility] TDAP 2016-04-03 Completed [facility] of 00:00:00 [facility] TDAP 2016-04-03 Completed [facility] of 00:00:00 [facility] TDAP 2016-04-03 Completed [facility] of 00:00:00 [facility] TDAP 2016-04-03 Completed [facility] of 00:00:00 [facility] TDAP 2016-04-03 Completed [facility] of 00:00:00 [facility] TDAP 2016-04-03 Completed [facility] of 00:00:00 [facility] TDAP 2016-04-03 Completed [facility] 00:00:00 [facility] [facility] TDAP 2016-04-03 Completed [facility] 00:00:00 [facility] TDAP 2016-04-03 Completed [facility] 00:00:00 [facility] TDAP 2016-04-03 Completed [facility] 00:00:00 [facility] TDAP 2016-04-03 Completed [facility] 00:00:00 [facility] TDAP 2016-04-03 Completed [facility] of 00:00:00 [facility] TDAP 2016-04-03 Completed [facility] 00:00:00 [facility] TDAP 2016-04-03 Completed [facility] 00:00:00 [facility] TDAP 2016-04-03 Completed [facility] 00:00:00 [facility] TDAP 2016-04-03 Completed [facility] 00:00:00 [facility] TDAP 2016-04-03 Completed [facility] 00:00:00 [facility] TDAP 2016-04-03 Completed [facility] 00:00:00 [facility] TDAP 2016-04-03 Completed [facility] 00:00:00 [facility] TDAP 2016-04-03 Completed [facility] 00:00:00 [facility] TDAP 2016-04-03 Completed [facility] 00:00:00 [facility] TDAP 2016-04-03 Completed [facility] 00:00:00 [facility] TDAP 2016-04-03 Completed [facility] 00[facility]00:00 [facility] TDAP 2016-04-03 Completed [facility] 00:00:00 [facility] TDAP 2016-04-03 Completed [facility] 00:00:00 [facility] TDAP 2016-04-03 Completed [facility] 00:00:00 [facility] TDAP 2016-04-03 Completed [facility] 00:00:00 [facility] TDAP 2016-04-03 Completed [facility] 00:00:00 [facility] TDAP 2016-04-03 Completed [facility] 00:00:00 [facility] TDAP 2016-04-03 Completed [facility] 00:00:00 [facility] TDAP 2016-04-03 Completed [facility] 00:00:00 [facility] TDAP 2016-04-03 Completed [facility] 00:00:00 [facility] TDAP 2016-04-03 Completed [facility] 00:00:00 [facility] TDAP 2016-04-03 Completed [facility] 00:00:00 [facility] TDAP 2016-04-03 Completed [facility] 00:00:00 [facility] TDAP 2016-04-03 Completed [facility] 00:00:00 [facility] TDAP 2016-04-03 Completed [facility] 00:00:00 [facility] TDAP 2016-04-03 Completed [facility] 00:00:00 [facility] Tdap 2016-04-03 Completed [facility] 00:00:00 [facility] Tdap 2016-04-03 Completed [facility] 00:00:00 [facility] Tdap 2016-04-03 Completed [facility] 00:00:00 [facility] Tdap 2016-04-03 Completed [facility] 00:00:00 [facility] Tdap 2016-04-03 Completed [facility] 00:00:00 [facility] Tdap 2016-04-03 Completed [facility] 00:00:00 [facility] Tdap 2016-04-03 Completed [facility] 00:00:00 [facility] Tdap 2016-04-03 Completed [facility] 00:00:00 [facility] Tdap 2016-04-03 Completed [facility] 00:00:00 [facility] Tdap 2016-04-03 Completed [facility] 00:00:00 [facility] Tdap 2016-04-03 Completed [facility] 00:00:00 [facility] Tdap 2016-04-03 Completed [facility] 00:00:00 [facility] Tdap 2016-04-03 Completed [facility] 00:00:00 [facility] Tdap 2016-04-03 Completed [facility] 00:00:00 [facility] Tdap 2016-04-03 Completed [facility] 00:00:00 [facility] Tdap 2016-04-03 Completed [facility] 00:00:00 [facility] Tdap 2016-04-03 Completed [facility] 00:00:00 [facility] Tdap 2016-04-03 Completed [facility] 00:00:00 [facility] Tdap 2016-04-03 Completed [facility] 00:00:00 [facility] Tdap 2016-04-03 Completed [facility] 00:00:00 [facility] Tdap 2016-04-03 Completed [facility] 00:00:00 [facility] Tdap 2016-04-03 Completed [facility] 00:00:00 [facility] Tdap 2016-04-03 Completed [facility] 00:00:00 [facility] Tdap 2016-04-03 Completed [facility] 00:00:00 [facility] Tdap 2016-04-03 Completed [facility] 00:00:00 [facility] Tdap 2016-04-03 Completed [facility] 00:00:00 [facility] Tdap 2016-04-03 Completed [facility] 00:00:00 [facility] TDAP 2016-04-03 Completed [facility] 00:00:00 [facility] TDAP 2016-04-03 Completed [facility] 00:00:00 [facility] TDAP 2016-04-03 Completed [facility] 00:00:00 [facility] TDAP 2016-04-03 Completed [facility] 00:00:00 [facility] TDAP 2016-04-03 Completed [facility] 00:00:00 [facility] TDAP 2016-04-03 Completed [facility] 00:00:00 [facility] TDAP 2016-04-03 Completed [facility] 00:00:00 [facility] TDAP 2016-04-03 Completed [facility] 00:00:00 [facility] Rho (d) Immune 2016-03-27 Completed [facility] of Globulin 00:00:00 [facility] Rho (d) Immune 2016-03-27 Completed [facility] Globulin 00:00:00 [facility] Rho (d) Immune 2016-03-27 Completed [facility] Globulin 00:00:00 [facility] Rho (d) Immune 2016-03-27 Completed [facility] Globulin 00:00:00 [facility] Rho (d) Immune 2016-03-27 Completed [facility] Globulin 00:00:00 [facility] Rho (d) Immune 2016-03-27 Completed [facility] Globulin 00:00:00 [facility] Rho (d) Immune 2016-03-27 Completed [facility] Globulin 00:00:00 [facility] Rho (d) Immune 2016-03-27 Completed [facility] Globulin 00:00:00 [facility] Rho (d) Immune 2016-03-27 Completed [facility] 00:00:00 [facility] Rho (d) Immune 2016-03-27 Completed [facility]ulin 00:00:00 [facility] Rho (d) Immune 2016-03-27 Completed [facility] 00:00:00 [facility] Rho (d) Immune 2016-03-27 Completed [facility] Gl[facility]ulin 00:00:00 [facility] Rho (d) Immune 2016-03-27 Completed [facility] Gl[facility]ulin 00:00:00 [facility] Rho (d) Immune 2016-03-27 Completed [facility] Gl[facility]ulin 00:00:00 [facility] Rho (d) Immune 2016-03-27 Completed [facility] Globulin 00:00:00 [facility] Rho (d) Immune 2016-03-27 Completed [facility] Globulin 00:00:00 [facility] Rho (d) Immune 2016-03-27 Completed [facility] Gl[facility]ulin 00:00:00 [facility] Rho (d) Immune 2016-03-27 Completed [facility] Gl[facility]ulin 00:00:00 [facility] Rho (d) Immune 2016-03-27 Completed [facility]ulin 00:00:00 [facility] Rho (d) Immune 2016-03-27 Completed [facility] Globulin 00:00:00 [facility] Rho (d) Immune 2016-03-27 Completed [facility] Globulin 00:00:00 [facility] Rho (d) Immune 2016-03-27 Completed [facility] Gl[facility]ulin 00:00:00 [facility] Rho (d) Immune 2016-03-27 Completed [facility] Gl[facility]ulin 00:00:00 [facility] Rho (d) Immune 2016-03-27 Completed [facility] 00:00:00 [facility] Rho (d) Immune 2016-03-27 Completed [facility] Gl[facility]ulin 00:00:00 [facility] Rho (d) Immune 2016-03-27 Completed [facility] Globulin 00:00:00 [facility] Rho (d) Immune 2016-03-27 Completed [facility] Globulin 00:00:00 [facility] Rho (d) Immune 2016-03-27 Completed [facility] Gl[facility]ulin 00:00:00 [facility] Rho (d) Immune 2016-03-27 Completed [facility] Globulin 00:00:00 [facility] Rho (d) Immune 2016-03-27 Completed [facility] Globulin 00:00:00 [facility] Rho (d) Immune 2016-03-27 Completed [facility] Globulin 00:00:00 [facility] Rho (d) Immune 2016-03-27 Completed [facility] Gl[facility]ulin 00:00:00 [facility] Rho (d) Immune 2016-03-27 Completed [facility] Gl[facility]ulin 00:00:00 [facility] Rho (d) Immune 2016-03-27 Completed [facility] Gl[facility]ulin 00:00:00 [facility] Rho (d) Immune 2016-03-27 Completed [facility] Globulin 00:00:00 [facility] Rho (d) Immune 2016-03-27 Completed [facility] Gl[facility]ulin 00:00:00 [facility] Rho (d) Immune 2016-03-27 Completed [facility] Gl[facility]ulin 00:00:00 [facility] Rho (d) Immune 2016-03-27 Completed [facility] Gl[facility]ulin 00:00:00 [facility] Rho (d) Immune 2016-03-27 Completed [facility] Globulin 00:00:00 [facility] Rho (d) Immune 2016-03-27 Completed [facility] Globulin 00:00:00 [facility] Rho (d) Immune 2016-03-27 Completed [facility] Globulin 00:00:00 [facility] Rho (d) Immune 2016-03-27 Completed [facility] Globulin 00:00:00 [facility] Rho (d) Immune 2016-03-27 Completed [facility] Gl[facility]ulin 00:00:00 [facility] Rho (d) Immune 2016-03-27 Completed [facility] Globulin 00:00:00 [facility] Rho (d) Immune 2016-03-27 Completed [facility] Globulin 00:00:00 [facility] Rho (d) Immune 2016-03-27 Completed [facility] Globulin 00:00:00 [facility] Rho (d) Immune 2016-03-27 Completed [facility] Globulin 00:00:00 [facility] Rho (d) Immune 2016-03-27 Completed [facility] Globulin 00:00:00 [facility] Rho (d) Immune 2016-03-27 Completed [facility] Globulin 00:00:00 [facility] Rho (d) Immune 2016-03-27 Completed [facility] Globulin 00:00:00 [facility] Rho (d) Immune 2016-03-27 Completed [facility] Globulin 00:00:00 [facility] Rho (d) Immune 2016-03-27 Completed [facility] Globulin 00:00:00 [facility] Rho (d) Immune 2016-03-27 Completed [facility] Globulin 00:00:00 [facility] Rho (d) Immune 2016-03-27 Completed [facility] Globulin 00:00:00 [facility] Rho (d) Immune 2016-03-27 Completed [facility] Globulin 00:00:00 [facility] Rho (d) Immune 2016-03-27 Completed [facility] Globulin 00:00:00 [facility] Rho (d) Immune 2016-03-27 Completed [facility] Globulin 00:00:00 [facility] Rho (d) Immune 2016-03-27 Completed [facility] Globulin 00:00:00 [facility] Rho (d) Immune 2016-03-27 Completed [facility] Globulin 00:00:00 [facility] Rho (d) Immune 2016-03-27 Completed [facility] Globulin 00:00:00 [facility] Rho (d) Immune 2016-03-27 Completed [facility] Globulin 00:00:00 [facility] Rho (d) Immune 2016-03-27 Completed [facility] Globulin 00:00:00 [facility] Rho (d) Immune 2016-03-27 Completed [facility] Globulin 00:00:00 [facility] Rho (d) Immune 2016-03-27 Completed [facility] Globulin 00:00:00 [facility] Rho (d) Immune 2016-03-27 Completed [facility] Globulin 00:00:00 [facility] Rho (d) Immune 2016-03-27 Completed [facility] Globulin 00:00:00 [facility] Rho (d) Immune 2016-03-27 Completed [facility] Globulin 00:00:00 [facility] Rho (d) Immune 2016-03-27 Completed [facility] Globulin 00:00:00 [facility] Rho (d) Immune 2016-03-27 Completed [facility] Globulin 00:00:00 [facility] Rho (d) Immune 2016-03-27 Completed [facility] Globulin 00:00:00 [facility] Rho (d) Immune 2016-03-27 Completed [facility] Globulin 00:00:00 [facility] Rho (d) Immune 2016-03-27 Completed [facility] Globulin 00:00:00 [facility] Rho (d) Immune 2016-03-27 Completed [facility] Globulin 00:00:00 [facility] Rho (d) Immune 2016-03-27 Completed [facility] Globulin 00:00:00 [facility] Rho (d) Immune 2016-03-27 Completed [facility] Globulin 00:00:00 [facility] Rho (d) Immune 2016-03-27 Completed [facility] Globulin 00:00:00 [facility] Rho (d) Immune 2016-03-27 Completed [facility] Globulin 00:00:00 [facility] Rho (d) Immune 2016-03-27 Completed [facility] Globulin 00:00:00 [facility] Rho (d) Immune 2016-03-27 Completed [facility] Globulin 00:00:00 [facility] Rho (d) Immune 2016-03-27 Completed [facility] Globulin 00:00:00 [facility] Rho (d) Immune 2016-03-27 Completed [facility] Globulin 00:00:00 [facility] Rho (d) Immune 2016-03-27 Completed [facility] Globulin 00:00:00 [facility] Vital Signs Vital Name Observation Time Observation Value Comments Source HEIGHT 2020-09-22 06:00:00 152.4 cm WEIGHT 2020-09-22 06:00:00 80.8 kg HEIGHT 2020-09-21 19:00:00 152.4 cm WEIGHT 2020-09-21 19:00:00 80.786 kg Systolic blood 2021-02-17 23:54:00 140 mm[Hg] Univer sity of pressure [facility] Diastolic blood 2021-02-17 23:54:00 93 mm[Hg] Unive rsity of pressure [facility] Heart rate 2021-02-17 23:54:00 108 /min [facility] Body temperature 2021-02-17 23:54:00 36.78 [facility] 2021-02-17 23:54:00 18 /min [facility] Body height 2021-02-17 23:54:00 172.7 cm [facility] Body weight 2021-02-17 23:54:00 81.647 kg [facility] BMI 2021-02-17 23:54:00 27[facility]37 [facility] Oxygen saturation in 2021-02-17 23:54:00 99 /min [facility] Arterial blood by [facility] Pulse oximetry [facility] Systolic blood 2020-11-26 13:09:00 118 mm[Hg] Univer sity of pressure [facility] Diastolic blood 2020-11-26 13:09:00 75 mm[Hg] Unive rsity of pressure [facility] Heart rate 2020-11-26 13:09:00 72 /min [facility] Body height 2020-11-26 13:09:00 160 cm [facility] Body weight 2020-11-26 13:09:00 81.647 kg [facility] BMI 2020-11-26 13:09:00 31.89 kg/m2 [facility] Oxygen saturation in 2020-11-26 13:09:00 100 /min [facility] of Arterial blood by [facility] P[facility] oxim[facility] Systolic blood 2020-11-01 18:58:00 136 mm[Hg] Univer sity of pressure [facility] Diastolic blood 2020-11-01 18:58:00 83 mm[Hg] Unive rsity of pressure [facility] Heart rate 2020-11-01 18:58:00 65 /min [facility] Body temperature 2020-11-01 18:58:00 37.06 Shira [facility] Respiratory rate 2020-11-01 18:58:00 18 /min Univ ers[facility] Body height 2020-11-01 18:58:00 160 cm [facility] Body weight 2020-11-01 18:58:00 80.377 kg [facility] BMI 2020-11-01 18:58:00 31.39 kg/m2 [facility] Oxygen saturation in 2020-11-01 18:58:00 100 /min [facility] of Arterial blood by [facility] P[facility]xim[facility] Systolic blood 2020-10-09 20:57:00 121 mm[Hg] Univer sity of pressure [facility] Diastolic blood 2020-10-09 20:57:00 72 mm[Hg] Unive rsity of pressure [facility] Heart rate 2020-10-09 20:57:00 75 /min [facility] Body temperature 2020-10-09 20:57:00 36.61 Shira [facility] Respiratory rate 2020-10-09 20:57:00 16 /min Univ ersity [facility] Body height 2020-10-09 20:57:00 160 cm [facility] Body weight 2020-10-09 20:57:00 81.421 kg [facility] BMI 2020-10-09 20:57:00 31.80 kg/m2 [facility] Systolic blood 2020-10-09 20:57:00 121 mm[Hg] Univer sity of pressure [facility] Diastolic blood 2020-10-09 20:57:00 72 mm[Hg] Unive rsity of pressure [facility] Heart rate 2020-10-09 20:57:00 75 /min [facility]i ty of [facility] Body temperature 2020-10-09 20:57:00 36.61 Shira [facility] Respiratory rate 2020-10-09 20:57:00 16 /min Univ ersity of [facility] Body height 2020-10-09 20:57:00 160 cm [facility] Body weight 2020-10-09 20:57:00 81.421 kg [facility] [place] BMI 2020-10-09 20:57:00 31.80 kg/m2 [facility] ty of [facility] Systolic blood 2020-10-05 09:00:00 115 mm[Hg] Univer sity of pressure [facility] Diastolic blood 2020-10-05 09:00:00 68 mm[Hg] Unive rsity of pressure [facility] Heart rate 2020-10-05 09:00:00 70 /min Universi ty of [facility] Body temperature 2020-10-05 09:00:00 36.56 Shira Univ ers[facility] of [facility] Respiratory rate 2020-10-05 09:00:00 18 /min Univ ersity of [facility] Oxygen saturation in 2020-10-05 09:00:00 98 /min [facility] Arterial blood by [facility] Body height 2020-10-01 14:40:00 160 cm [facility] Body weight 2020-10-01 14:40:00 79.379 kg [facility] BMI 2020-10-01 14:40:00 31.00 kg/m2 [facility] HEIGHT 2020-09-22 06:00:00 152.4 cm WEIGHT 2020-09-22 06:00:00 80.8 kg HEIGHT 2020-09-21 19:00:00 152.4 cm WEIGHT 2020-09-21 19:00:00 80.786 kg Systolic blood 2020-09-15 05:45:58 155 mm[Hg] Univer sity of pressure [facility] Diastolic blood 2020-09-15 05:45:58 102 mm[Hg] Unive rsity of pressure [facility] Heart rate 2020-09-15 05:45:58 95 /min [facility] Respiratory rate 2020-09-15 05:45:58 19 /min Univ ers[facility] Oxygen saturation in 2020-09-15 05:45:58 98 /min [facility] of Arterial blood by [facility] Body temperature 2020-09-15 02:54:00 36.67 Shira [facility] Body weight 2020-09-15 02:54:00 79.379 kg [facility] BMI 2020-09-15 02:54:00 31.00 kg/m2 [facility] Systolic blood 2020-09-13 05:00:00 110 mm[Hg] Univer sity of pressure [facility] Diastolic blood 2020-09-13 05:00:00 56 mm[Hg] Unive rsity of pressure [facility] Heart rate 2020-09-13 05:00:00 100 /min [facility] Body temperature 2020-09-13 05:00:00 37.33 Shira [facility] Respiratory rate 2020-09-13 05:00:00 18 /min Univ ers[facility] Oxygen saturation in 2020-09-13 04:00:00 100 /min [facility] Arterial blood by [place] [employer] [facility] Body height 2020-09-13 00:48:00 160 cm [facility] Body weight 2020-09-13 00:48:00 78.019 kg [facility] BMI 2020-09-13 00:48:00 30.47 kg/m2 [facility] Systolic blood 2020-09-12 02:30:00 126 mm[Hg] Univer [facility]ity [facility] pressure [facility] Diastolic blood 2020-09-12 02:30:00 80 mm[Hg] Unive rsity of pressure [facility] Heart rate 2020-09-12 02:30:00 103 /min [facility] Respiratory rate 2020-09-12 02:30:00 21 /min Univ ersity [facility] Oxygen saturation in 2020-09-12 02:30:00 98 /min [facility] Arterial blood by [facility] Body temperature 2020-09-12 01:33:00 37.72 Shira [facility] Body height 2020-09-12 01:33:00 160 cm [facility] Body weight 2020-09-12 01:33:00 77.111 kg [facility] BMI 2020-09-12 01:33:00 30.11 kg/m2 [facility] Systolic blood 2020-08-31 17:00:00 121 mm[Hg] Univer sity of pressure [facility] Diastolic blood 2020-08-31 17:00:00 76 mm[Hg] Unive rsity of pressure [facility] Heart rate 2020-08-31 17:00:00 71 /min [facility] Respiratory rate 2020-08-31 17:00:00 12 /min Univ ers[facility] Oxygen saturation in 2020-08-31 17:00:00 97 /min [facility] of Arterial blood by [facility] Body temperature 2020-08-31 16:20:00 38.5 Shira [facility] Body weight 2020-08-31 16:20:00 77.111 kg [facility] BMI 2020-08-31 16:20:00 30.11 kg/m2 [facility] Systolic blood 2020-08-30 04:04:21 139 mm[Hg] Univer sity of pressure [facility] Diastolic blood 2020-08-30 04:04:21 78 mm[Hg] Unive rsity of pressure [facility] Heart rate 2020-08-30 04:04:21 83 /min [facility] Body temperature 2020-08-30 04:04:21 37.72 Shira [facility] Respiratory rate 2020-08-30 04:04:21 19 /min Univ ers[facility] Oxygen saturation in 2020-08-30 04:04:21 99 /min [facility] Arterial blood by [facility] Body height 2020-08-30 01:45:00 160 cm [facility] Body weight 2020-08-30 01:45:00 77.111 kg [facility] BMI 2020-08-30 01:45:00 30.11 kg/m2 [facility] Systolic blood 2020-06-07 16:00:00 127 mm[Hg] Univer sity of pressure [facility] Diastolic blood 2020-06-07 16:00:00 73 mm[Hg] Unive rsity of pressure [facility] Heart rate 2020-06-07 16:00:00 86 /min [facility] Body temperature 2020-06-07 16:00:00 37.39 Shira [facility] Respiratory rate 2020-06-07 16:00:00 16 /min [facility] Body height 2020-06-07 16:00:00 162.6 cm [facility] Body weight 2020-06-07 16:00:00 73.539 kg [facility] BMI 2020-06-07 16:00:00 27.83 kg/m2 [facility] Systolic blood 2020-05-14 01:03:00 140 mm[Hg] Univer sity of pressure [facility] Diastolic blood 2020-05-14 01:03:00 97 mm[Hg] Unive rsity of pressure [facility] Heart rate 2020-05-14 01:03:00 89 /min [facility] Body temperature 2020-05-14 01:03:00 37.33 Shira [facility] Respiratory rate 2020-05-14 01:03:00 20 /min [facility] Body height 2020-05-14 01:03:00 162.6 cm [facility] Body weight 2020-05-14 01:03:00 73.483 kg [facility] [place] [facility] BMI 2020-05-14 01:03:00 27.81 kg/m2 [facility] Oxygen saturation in 2020-05-14 01:03:00 100 /min University of Arterial blood by [facility] Pulse oximetry Branch Systolic blood 2020-01-17 19:49:00 123 mm[Hg] [facility] Diastolic blood 2020-01-17 19:49:00 73 mm[Hg] [facility] Heart rate 2020-01-17 19:49:00 75 /min [facility] Body temperature 2020-01-17 19:49:00 37.39 Shira [facility] Respiratory rate 2020-01-17 19:49:00 16 /min Univ [facility] Body height 2020-01-17 19:49:00 160 cm [facility] Body weight 2020-01-17 19:49:00 86.183 kg [facility] BMI 2020-01-17 19:49:00 33.66 kg/m2 [facility] Systolic blood 2019-12-30 15:30:00 133 mm[Hg] [facility]iver [facility] Diastolic blood 2019-12-30 15:30:00 84 mm[Hg] [facility] Heart rate 2019-12-30 15:30:00 98 /min [facility] Body temperature 2019-12-30 15:30:00 36.56 Shira [facility] Respiratory rate 2019-12-30 15:30:00 16 /min [facility] Body height 2019-12-30 15:30:00 162.6 cm [facility] [place] [facility] [place] Body weight 2019-12-30 15:30:00 84.936 kg [facility] BMI 2019-12-30 15:30:00 32.14 kg/m2 [facility] Systolic blood 2019-12-20 18:23:00 123 mm[Hg] [facility] Diastolic blood 2019-12-20 18:23:00 76 mm[Hg] [facility] Heart rate 2019-12-20 18:23:00 83 /min [facility] Body temperature 2019-12-20 18:23:00 36.89 Shira [facility] Respiratory rate 2019-12-20 18:23:00 16 /min [facility] Body height 2019-12-20 18:23:00 160 cm [facility] [place] [facility] [place] Body weight 2019-12-20 18:23:00 85.911 kg [facility] BMI 2019-12-20 18:23:00 33.55 kg/m2 [facility] Systolic blood 2019-09-27 19:20:00 129 mm[Hg] [facility] Diastolic blood 2019-09-27 19:20:00 71 mm[Hg] Unive rsity of [facility] Heart rate 2019-09-27 19:20:00 99 /min [facility] Body temperature 2019-09-27 19:20:00 36.44 Shira [facility] Respiratory rate 2019-09-27 19:20:00 16 /min [facility] Body height 2019-09-27 19:20:00 162.6 cm [facility] Body weight 2019-09-27 19:20:00 85.787 kg [facility] BMI 2019-09-27 19:20:00 32.46 kg/m2 [facility] Systolic blood 2019-08-18 16:00:00 109 mm[Hg] Univer [facility]ity of [facility] Diastolic blood 2019-08-18 16:00:00 66 mm[Hg] Unive rsity of [facility] Heart rate 2019-08-18 16:00:00 83 /min [facility] Respiratory rate 2019-08-18 16:00:00 18 /min [facility] Oxygen saturation in 2019-08-18 16:00:00 99 /min University Arterial blood by [facility] Pulse oximetry Branch Body temperature 2019-08-18 13:21:00 36.56 Shira [facility] Body height 2019-08-18 13:21:00 162.6 cm [facility] Body weight 2019-08-18 13:21:00 77.111 kg [facility] BMI 2019-08-18 13:21:00 29.18 kg/m2 [facility] Systolic blood 2019-07-29 04:27:00 134 mm[Hg] [facility] Diastolic blood 2019-07-29 04:27:00 80 mm[Hg] [facility] Heart rate 2019-07-29 04:27:00 80 /min [facility] Respiratory rate 2019-07-29 04:27:00 18 /min [facility] Oxygen saturation in 2019-07-29 04:27:00 98 /min [facility] Arterial blood by [facility] Pulse oximetry Branch Body temperature 2019-07-28 22:32:00 37.22 Shira [facility] Body height 2019-07-28 22:32:00 162.6 cm [facility] Body weight 2019-07-28 22:32:00 81.647 kg [facility] BMI 2019-07-28 22:32:00 30.90 kg/m2 [facility] Systolic blood 2019-06-27 02:00:00 122 mm[Hg] [facility] Diastolic blood 2019-06-27 02:00:00 65 mm[Hg] [facility] Heart rate 2019-06-27 02:00:00 98 /min [facility] Respiratory rate 2019-06-27 02:00:00 18 /min [facility] Oxygen saturation in 2019-06-27 02:00:00 99 /min [facility] Arterial blood by [facility] Pulse oximetry Branch Body temperature 2019-06-27 00:13:46 36.83 Shira [facility] Body height 2019-06-27 00:10:00 160 cm [facility] Body weight 2019-06-27 00:10:00 79.379 kg [facility] BMI 2019-06-27 00:10:00 31.00 kg/m2 [facility] Systolic blood 2019-05-17 18:28:00 127 mm[Hg] [facility] Diastolic blood 2019-05-17 18:28:00 68 mm[Hg] [facility] Heart rate 2019-05-17 18:28:00 75 /min [facility] Body temperature 2019-05-17 18:28:00 36.89 Shira [facility] Respiratory rate 2019-05-17 18:28:00 16 /min [facility] Body height 2019-05-17 18:28:00 162.6 cm [facility] Body weight 2019-05-17 18:28:00 79.635 kg [facility] BMI 2019-05-17 18:28:00 30.14 kg/m2 [facility] Systolic blood 2019-04-20 17:06:00 134 mm[Hg] [facility] Diastolic blood 2019-04-20 17:06:00 76 mm[Hg] Unive rsity of [facility] Heart rate 2019-04-20 17:06:00 112 /min [facility] Body temperature 2019-04-20 17:06:00 37.33 Shira [facility] Respiratory rate 2019-04-20 17:06:00 18 /min [facility] Body weight 2019-04-20 17:06:00 81.647 kg [facility] BMI 2019-04-20 17:06:00 30.90 kg/m2 [facility] Oxygen saturation in 2019-04-20 17:06:00 98 /min University Arterial blood by [facility] Pulse oximetry Branch Systolic blood 2019-03-21 22:03:00 139 mm[Hg] Univer [facility]ity [facility] Diastolic blood 2019-03-21 22:03:00 81 mm[Hg] Unive rsity of [facility] Heart rate 2019-03-21 22:03:00 93 /min [facility] Body temperature 2019-03-21 22:03:00 37.33 Shira [facility] Respiratory rate 2019-03-21 22:03:00 16 /min [facility] Body height 2019-03-21 22:03:00 162.6 cm [facility] Body weight 2019-03-21 22:03:00 76.233 kg [facility] BMI 2019-03-21 22:03:00 28.85 kg/m2 [facility] Procedures Procedure Date / Time Performing Clinician Source Performed COMP. METABOLIC PANEL 2021-02-18 01:52:00 Raven Goldsmith [facility] ([id number]) Medical Branch ETHANOL 2021-02-18 01:52:00 Raven Goldsmith [facility] CBC WITH DIFF 2021-02-18 01:52:00 Raven Goldsmith [facility] URINE DRUG (IMMUNOASSAY) 2021-02-18 01:36:00 Raven Goldsmith [facility] SCREEN CONSENT/REFUSAL FOR 2021-02-17 23:35:03 Doctor Unassigned, No [facility] DIAGNOSIS AND TREATMENT [facility] MR BRAIN W WO CONTRAST 2020-10-18 19:21:42 Suzie Frey [facility] ASSIGNMENT OF BENEFITS 2020-10-09 20:43:10 Doctor Unassigned, No [facility] LITHIUM 2020-10-05 10:05:00 Jacinto Parks [facility] HOSPITAL ADMISSION 2020-10-01 05:01:00 Doctor Unassigned, No [facility] EPILEPSY MONITORING UNIT 2020-09-30 05:01:00 Doctor Unassigned, No [facility] DOCUMENTATION [facility] ASSIGNMENT OF BENEFITS 2020-09-26 17:05:24 Doctor Unassigned, No [facility] POCT TEST 2020-09-15 04:50:00 Cheo Galvin [facility] CBC WITH DIFF 2020-09-15 04:14:00 Cheo Galvin [facility] CREATINE KINASE 2020-09-15 04:03:00 Cheo Galvin [facility] COMP. METABOLIC PANEL 2020-09-15 04:03:00 Cheo Galvin [facility] ([id number]) [facility] ETHANOL 2020-09-15 04:03:00 Cheo Galvin [facility] URINE DRUG (IMMUNOASSAY) 2020-09-15 04:03:00 [facility]o [facility] 2020-09-15 04:03:00 Cheo Galvin [facility] URINALYSIS 2020-08-31 17:10:00 Peace Paz [facility] POCT TEST 2020-08-31 17:08:00 Peace Paz [facility] COMP. METABOLIC PANEL 2020-08-31 16:30:00 Peace Paz [facility] ([id number]) Medical Branch CBC WITH DIFF 2020-08-31 16:30:00 Peace Paz [facility] LACTIC ACID WHOLE BLOOD 2020-08-31 16:30:00 Peace Paz [facility] POCT TEST 2020-08-30 02:44:00 Peace Paz [facility] URINALYSIS 2020-08-30 02:39:00 Peace Paz [facility] COVID-19 (ID NOW RAPID 2020-08-30 02:16:00 Peace Paz [facility] TESTING) Medical Branch NOTICE OF PRIVACY 2020-08-30 01:38:13 Doctor Unassigned, No [facility] PRACTICES Name [facility] CONSENT/REFUSAL FOR 2020-08-30 01:31:54 Doctor Unassigned, No [facility] [place] [facility] Name [facility] POCT URINALYSIS W/O 2020-06-07 16:03:00 [facility] SPECIFIC GRAVITY [facility] CT ABDOMEN PELVIS WO 2020-05-14 01:54:47 Peace Paz [facility] CONTRAST [facility] COMP. METABOLIC PANEL 2020-05-14 01:30:00 Peace Paz [facility] ([id number]) Medical Branch CBC WITH DIFF 2020-05-14 01:30:00 Peace Paz [facility] URINALYSIS 2020-05-14 01:08:00 Peace Paz [facility] POCT TEST 2020-05-14 01:08:00 Peace Paz [facility] CONSENT/REFUSAL FOR 2020-05-14 00:21:36 Doctor Unassigned, No [facility] [place] [facility] Name Medical Branch GARDASIL 9 (HPV 9V) 2019-12-30 15:25:24 Abena Patel [facility] VACCINE [facility] GARDASIL 9 (HPV 9V) 2019-09-27 20:17:36 Abena Patel [facility] VACCINE [facility] POCT URINALYSIS W/O 2019-09-27 19:58:00 Abena Patel [facility] SPECIFIC GRAVITY [facility] POCT TEST 2019-09-27 19:41:00 Abena Patel [facility] XR CHEST 1 VW 2019-08-18 15:36:27 Agus [facility] COVID-19 (ID NOW RAPID 2019-08-18 14:07:00 Raven Goldsmith [facility] TESTING) [facility] RAPID STREP SCREEN FOR 2019-08-18 14:06:00 Raven Goldsmith [facility] GROUP A [facility] TEST, SERUM 2019-08-18 14:05:00 Raven Goldsmith [facility] HEPATIC FUNCTION PANEL 2019-08-18 14:05:00 Raven Goldsmith [facility] ([id number]) (ALB,T.PRO,BILI [facility] T,BU/BC,ALT,AST,ALK PHOS) BASIC METABOLIC PANEL 2019-08-18 14:05:00 Raven Goldsmith [facility] (NA, K, CL, CO2, Medical Branch GLUCOSE, BUN, CREATININE, CA) CBC WITH DIFFERENTIAL 2019-08-18 14:05:00 Raven Goldsmith [facility] PROTHROMBIN TIME / INR 2019-08-18 14:05:00 Raven Goldsmith [facility] ACTIVATED PARTIAL 2019-08-18 14:05:00 [facility] THRM[facility] ISABELL [facility] CONSENT/REFUSAL FOR 2019-08-18 13:01:15 Doctor Unassigned, No [facility] Name [facility] CT CHEST PULMONARY 2019-07-29 04:01:04 Yovani Romero [facility] ANGIOGRAM Medical Branch TROPONIN I 2019-07-29 01:38:00 [facility] [place] [facility] COMP. METABOLIC PANEL 2019-07-29 01:38:00 Yovani Romero [facility] ([id number]) Medical Branch CBC WITH DIFFERENTIAL 2019-07-29 01:38:00 Yovani Romero [facility] D-DIMER 2019-07-29 01:38:00 Yovani Romero [facility] XR CHEST 2 VW 2019-07-28 23:41:[address] [facility] EKG-12 LEAD 2019-07-28 23:31:26 [facility] POCT TEST 2019-07-28 23:19:00 Yovani Romero [facility] COVID-19 (ID NOW RAPID 2019-07-28 23:18:00 Yovani Romero [facility] TESTING) Medical Branch NOTICE OF PRIVACY 2019-07-28 22:13:33 Doctor Unassigned, No [facility] PRACTICES Name Medical Branch CONSENT/REFUSAL FOR 2019-07-28 22:13:23 Doctor Unassigned, No [facility] Name [facility] CT ABDOMEN PELVIS WO 2019-06-27 01:06:22 Lory Pimentel [facility] CONTRAST [facility] POCT TEST 2019-06-27 00:37:00 Lory Pimentel I Uni [facility] BASIC METABOLIC PANEL 2019-06-27 00:32:00 Lory Pimentel I U [facility] (NA, K, CL, CO2, Medical Branch GLUCOSE, BUN, CREATININE, CA) CBC WITH DIFFERENTIAL 2019-06-27 00:32:00 Lory Pimentel I U [facility] URINALYSIS 2019-06-27 00:32:00 Lory Pimentel I [facility] GARDASIL 9 (HPV 9V) 2019-05-17 18:42:52 Abena Patel [facility] VACCINE [facility] POCT URINALYSIS W/O 2019-05-17 18:32:00 Abena Patel [facility] SPECIFIC GRAVITY [facility] POCT TEST 2019-04-20 19:21:00 Raven Goldsmith [facility] URINALYSIS 2019-04-20 19:20:00 Raven Goldsmith [facility] ADC / LCC - DRUG SCREEN 2019-04-20 19:20:00 Peace Paz [facility] TRIAGE Medical Branch LIPASE 2019-04-20 17:45:00 Raven Goldsmith [facility] COMP. METABOLIC PANEL 2019-04-20 17:45:00 Raven Goldsmith [facility] ([id number]) [facility] CBC WITH DIFFERENTIAL 2019-04-20 17:45:00 Agus Raven [facility] HIV 1/2 AG-AB WITH 2019-03-21 22:15:00 Trever Katz [facility] REFLEX [facility] Plan of Care Planned Activity Planned Date Details Comments Source Future Scheduled Test CHLAMYDIA SCREENING [facility] [code = CHLAMYDIA SCREENING] Future Scheduled Test COVID-19 VACCINE (1) [facility] [code = COVID-19 VACCINE (1)] Future Scheduled Test Hepatitis C screening [facility] (procedure) [code = 812515518] Future Scheduled Test Screening for [facility] malignant neoplasm of cervix (procedure) [code = 955399719] Future Scheduled Test INFLUENZA VACCINE [facility] [code = INFLUENZA VACCINE] Encounters Start End Encounter Admission Attending Care Care Encounter Source Date/Time Date/Time Type Type Clinicians Facility Department ID 2021-01-07 Emergency [facility] [id number] Univers 07:14:20 [facility] 2021-01-07 Emergency [facility] [id number] Univers 06:42:50 [facility] 2021-01-07 Emergency [facility] [id number] Univers 06:25:23 [facility]y [facility] 2021-01-07 Emergency [facility] [id number] Univers 03:52:48 [facility] 2021-01-07 Emergency [facility] [id number] Univers 03:25:06 ity of [facility] 2021-01-06 Emergency [facility] [id number] [facility]:53[facility] Inpatient ER RIN PARKINSON G[facility] [id number] [facility]H 19:23:00 JOANNE 2021-02-17 2021-02-17 Emergency X SALAS [facility] ERT [id number] Univers 18:01:00 22:48:00 [facility] 2021-02-17 2021-02-17 Emergency Raven Goldsmith [facility] 1.2.840. 114 [id number] Univers 18:01:00 22:48:00 Armen Rodriguez FILLMORE [id number] ity [id number] [phone] [place] [id number] [place] 2021-01-11 2021-01-11 [facility] Ang-Rmchp [facility] 1.2.840. 114 [id number] Univers 10:24:34 10:39:34 Visit Abena Patel ABALONE FISHERMAN [id number] ity [facility] [id number] Dwayne as MATERNAL [phone] [facility] ical & CHILD [address] [place] [address] 2021-01-11 2021-01-11 Outpatient R [facility] [id number] Univers 10:30:00 10:30:00 [id number] [facility] 2021-01-11 2021-01-11 [facility] [id number] Univers 10:30:00 10:30:00 ABENA [facility] 2020-12-21 2020-12-21 Telephone Aditi [facility] [id number] Univers 00:00:00 00:00:00 [id number] [facility] [id number] [place]wayne as Jorge?Blea [phone] Sd anselmo thompson 2 [place] [facility] 2020-12-18 2020-12-18 [facility] [id number] Univers 09:00:00 09:00:00 ABENA [id number] [facility] 2020-12-18 2020-12-18 [facility] [id number] Univers 09:00:00 09:00:00 ABENA [facility] 2020-11-28 2020-11-28 Outpatient Bryn MCKEE [facility] [id number] Univers 14:00:00 14:00:00 BILAL [id number] [facility] 2020-11-26 2020-11-26 Office Aditi [facility] [id number] Univers 07:48:27 09:58:10 Visit Richard Misael [facility] [id number] ity of [place] [id number] Dwayne as Jorge?Blea [phone] Sd anselmo thompson [address] [place] [address] Office [facility] 2020-11-26 2020-11-26 Outpatient RICHARD DYKES [facility] [id number] Univers 08:00:00 08:00:00 RICHARD PENNINGTON [id number] [facility] 2020-11-26 2020-11-26 Outpatient RICHARD DYKES [facility] [id number] Univers 08:00:00 08:00:00 RICHARD PENNINGTON [facility] 2020-11-20 2020-11-20 Outpatient RICHARD DYKES [facility] [id number] Univers 08:00:00 08:00:00 RICHARD PENNINGTON [id number] [facility] 2020-11-20 2020-11-20 Outpatient RICHARD DYKES [facility] [id number] Univers 08:00:00 08:00:00 RICHARD PENNINGTON [facility] 2020-11-14 2020-11-14 Telephone Aditi [facility] [id number] Univers 00:00:00 00:00:00 Richard [place] [id number] ity [facility] [id number] [phone] Sd anselmo thomas 092 [facility] 2020-11-01 2020-11-01 [facility] 1.2.840.114 [id number] Univers 13:43:12 14:35:39 Visit Liliana GREGORY [id number] ity of [facility] [id number] [place] AT [phone] Sd aneslmo BEDOYA [address] [facility] 2020-11-01 2020-11-01 Outpatient R BRAD [facility] [id number] Univers 14:00:00 14:00:00 LILIANA [id number] ity [facility] 2020-11-01 2020-11-01 Outpatient Bryn SALINAS [facility] [id number] Univers 14:00:00 14:00:00 LILIANA [facility] 2020-10-22 2020-10-22 Outpatient Bryn BRAD, [facility] [id number] Univers 13:00:00 13:00:00 LILIANA [id number] [facility] 2020-10-19 2020-10-19 Outpatient RICHARD DYKES [facility] [id number] Univers 08:40:00 08:40:00 RICHARD PENNINGTON [facility] 2020-10-18 2020-10-18 [facility] 1.2.840.114 [id number] Univers 12:54:28 23:59:00 Encounter Lauryn Foley [id number] [facility] [id number] [facility] [phone] [facility] 804 Branch 2020-10-18 2020-10-18 Outpatient R RAMÍREZ [facility] [id number] Univers 13:00:00 13:00:00 LAURYN [id number] radhay o [facility] 2020-10-18 2020-10-18 Outpatient R DESIREE [facility] [id number] Univers 00:00:00 00:00:00 LAURYN hammonds o [facility] 2020-10-15 2020-10-15 Telephone [facility] 1.2.840.114 [id number] 00:00:00 00:00:00 Abena N ABALONE FISHERMAN [id number] [facility] [id number] MATERNAL [phone] & CHILD [address] [place] [address] 2020-10-15 2020-10-15 Telephone [facility] 1.2.840.114 [id number] Univers 00:00:00 00:00:00 Abena N ABALONE FISHERMAN [id number] it y [facility] [id number] Dwayne as MATERNAL [phone] [facility] & CHILD [address] [place] [address] 2020-10-12 2020-10-12 [facility] 1.2.840.114 [id number] 00:00:00 00:00:00 Abena N ABALONE FISHERMAN [id number] REG[facility]AL [id number] MATERNAL [phone] & [address] 2020-10-12 2020-10-12 Telephone [facility] 1.2.840.114 [id number] [facility] 00:00:00 00:00:00 Abena N ABALONE FISHERMAN [id number] it y of [facility] [id number] Dwayne as MATERNAL [phone] [facility] CHILD [address] [place] [address] 2020-10-11 2020-10-11 Outpatient [facility] [id number] Univers 15:15:00 15:15:00 ABENA [id number] [facility] 2020-10-11 2020-10-11 [facility] [id number] Univers 15:15:00 15:15:00 ABENA [facility] 2020-10-11 2020-10-11 [facility] 1.2.840.114 [id number] 00:00:00 00:00:00 Abena N ABALONE FISHERMAN [id number] [facility] [id number] MATERNAL [id number] & [address] 2020-10-11 2020-10-11 [facility] 1.2.840.114 [id number] Univers 00:00:00 00:00:00 Abena N ABALONE FISHERMAN [id number] it y of [facility] [id number] Dwayne as MATERNAL [phone] [facility] & CHILD [address] [place] [address] 2020-10-09 2020-10-09 Office [facility] [id number] 15:44:08 16:29:53 Visit Abena N ABALONE FISHERMAN [id number] REGIONAL [id number] MATERNAL [id number] & CHILD [address] [place] [address] 2020-10-09 2020-10-09 Office Jorge [facility] [id number] Univers 15:44:08 16:29:53 Visit Abena Rabia ABALONE FISHERMAN [id number] it y of [facility] [id number] Dwayne as MATERNAL [phone] Med ical & CHILD [address] [place] [address] 2020-10-09 2020-10-09 Outpatient R JORGE [facility] [facility] [id number] Univers 15:45:00 15:45:00 ABENA [facility]ius [facility] 2020-10-09 2020-10-09 Orders Doctor COLT 1.2.840.114 [id number] Univers 00:00:00 00:00:00 Only Unassigned, STEPHANIA 350.1.13.10 ity of [place] [facility] 4.2.7.2.686 Dwayne as [phone] [facility] [address] 2020-10-08 2020-10-08 Transition Julio Grant 1.2.840.114 [id number] Univers 00:00:00 00:00:00 of Care Mesfin Pozoy 350.1.13.10 ity [facility] [place].2.[place] [phone] [facility] 403 [address] 2020-10-01 2020-10-05 [facility] Mary Rios 1.2.840.114 [id number] Univers 09:39:00 10:22:00 Encounter S Line [place] 350.1.13.10 ity of [facility] 4.2.7.2.686 [place] as [phone] [facility] 098 [place] 2020-10-01 2020-10-01 Outpatient R [facility] [id number] -[id number] Univers 08:30:00 08:30:00 [id number] ity [facility] 2020-10-01 2020-10-01 Outpatient R MARY RIOS [facility] [id number] Univers 08:30:00 08:30:00 ity [facility] 2020-10-01 2020-10-01 Orders Doctor GREGORY 1.2.840.114 [id number] Univers 00:00:00 00:00:00 Only Unassigned, STEPHANIA 350.1.13.10 ity of [place] [facility] 4.2.7.2.686 [place] as [phone] [facility] 009 [place] 2020-09-30 2020-09-30 Orders Doctor COLT 1.2.840.114 [id number] Univers 00:00:00 00:00:00 Only Unassigned, STEPHANIA 350.1.13.10 ity of [place] [facility] 4.2.7.2.686 [place] as [id number] [address] 2020-09-28 2020-09-28 [facility] [id number] 5Q-20 Univers 09:30:00 09:30:00 ABENA [id number] ity [facility] 2020-09-28 2020-09-28 [facility] [id number] Univers 09:30:00 09:30:00 ABENA ity [facility] 2020-09-27 2020-09-27 Outpatient R [facility] [id number] -[id number] Univers 11:45:00 11:45:00 [id number] ity [facility] 2020-09-26 2020-09-26 Laboratory Only, Adc Test [facility] 1.2.840. 114 [id number] Univers 12:05:49 12:20:49 Only Mary Rios 350.1.13.10 ity of [place].2.7.2.[place] [phone] [facility] 353 [address] 2020-09-26 2020-09-26 Outpatient R [facility] [id number] -20 Univers 12:00:00 12:00:00 [id number] ity [facility] 2020-09-26 2020-09-26 Outpatient R [facility] [id number] Univers 12:00:00 12:00:00 ity [facility] 2020-09-26 2020-09-26 Orders Doctor GREGORY 1.2.840.114 [id number] Univers 00:00:00 00:00:00 Only Unassigned, STEPHANIA 350.1.13.10 ity of [place] [facility] 4.2.7.2.686 [place] as [phone] [facility] [address] 2020-09-21 2020-09-21 Outpatient R RICHARD PENNINGTON [facility] [id number] Univers 10:00:00 10:00:00 [facility] [id number] [facility] 2020-09-21 2020-09-21 Outpatient RICHARD DYKES [facility] [id number] Univers 10:00:00 10:00:00 [facility] 2020-09-14 2020-09-15 Emergency Glenis, TRAUMA 1.2.547.982 [id number] Univers 21:58:00 00:49:00 Cheo MOORE 350.1.13.10 it[place] of [place] [phone] [facility] 014 [address] 2020-09-12 2020-09-13 Emergency Peace Paz [facility] 1.2.840.114 [id number] Univers 19:41:00 00:37:00 Yulia Foley 350.1.13.10 i ty of [place] 4.2.7.2.686 [place] [id number] [facility] 084 [address] 2020-09-12 2020-09-12 Telephone Aditi [facility] 1.2.840.114 [id number] Univers 00:00:00 00:00:00 Richard Foley 350.1.13.10 ity of [place] 4.2.7.2.[place] [phone] Sd dical [facility] 092 [address] [facility] 2020-09-11 2020-09-11 Emergency [facility] 1.2.002.406 [id number] Univers 20:23:00 22:08:00 Wong Foley 350.1.13.10 i ty of [place] 4.2.7.2.686 [place] [phone] [facility] 084 [place] 2020-08-31 2020-08-31 Emergency Peace Paz [facility] 1.2.840.114 [id number] Univers 11:19:00 13:58:00 Yulia Foley 350.1.13.10 i ty of [place] 4.2.7.2.686 [facility] [id number] [address] 2020-08-29 2020-08-29 Emergency Kwaku Peace [facility] 1.2.840.114 [id number] Univers 20:48:00 23:11:00 Yulia Corunna 350.1.13.10 i ty of [place] 4.2.7.2.686 [facility] [phone] [address] 2020-06-07 2020-06-07 [facility] 1.2.081.834 [id number] Univers 10:50:31 11:18:03 Visit Alma Estevez ABALONE FISHERMAN 350.1.13.10 ity of [facility] 4.2.7.2.686 [place] as MATERNAL [phone] Med ical & CHILD [address] [place] [address] 2020-06-07 2020-06-07 Outpatient R IRMA, [facility] [id number] 5Q-20 Univers 11:00:00 11:00:00 ALMA [id number] cassius pierce [facility] 2020-06-07 2020-06-07 Outpatient R IRMA [facility] [id number] Univers 11:00:00 11:00:00 ALMA pierce [facility] 2020-05-29 2020-05-29 [facility] 1.2.840.114 [id number] Univers 00:00:00 00:00:00 Outreach Santosh AN 350.1.13.10 i ty of [facility] 4.2.7.2.686 [facility] [phone] Sd dical [address] [place] 2020-05-13 2020-05-13 Emergency Peace Paz [facility] 1.2.840.114 [id number] Univers 19:12:00 21:45:00 Yulia Annton 350.1.13.10 i ty of [place] 4.2.7.2.686 [place] [phone] [place] [address] 2020-05-13 2020-05-13 Orders Doctor GREGORY 1.2.840.114 [id number] Univers 00:00:00 00:00:00 Only Unassigned, STEPHANIA 350.1.13.10 ity of [place] [facility] 4.2.7.2.686 [place] as [phone] [address] 2020-03-22 2020-03-22 Outpatient [facility] [id number] -20 Univers 13:30:00 13:30:00 [id number] ity of [facility] 2020-01-19 2020-01-19 Telephone Visit, [facility] 1.2.210.664 [id number] Univers 00:00:00 00:00:00 [facility] ABALONE FISHERMAN 350.1.13.10 ity of Nurse [facility] 4.2.7.2.686 [place] as MATERNAL [phone] [facility] ical & CHILD [address] [place] [address] 2020-01-17 2020-01-17 Office [facility] 1.2.840.114 [id number] Univers 13:39:45 14:25:08 Visit Trever Clemente ABALONE FISHERMAN 350.1.13.10 ity of [facility] 4.2.7.2.686 [place] MATERNAL [phone] [facility] & CHILD [address] [place] [address] 2020-01-17 2020-01-17 [facility] [id number] -[id number] Univers 13:45:00 13:45:00 TREVER ity o [facility] 2020-01-17 2020-01-17 Outpatient Bryn [facility] [id number] Univers 13:45:00 13:45:00 ROSHUNDA ity o f [facility] 2020-01-16 2020-01-16 Telephone [facility] 1.2.046.407 [id number] Univers 00:00:00 00:00:00 Trever Clemente ABALONE FISHERMAN 350.1.13.10 ity of [place] [address].7.2.686 [place] as MATERNAL [phone] [facility] & [address] 2019-12-30 2019-12-30 Nurse Visit, [facility] Nurse [facility] 1.2 .840.114 [id number] Univers 10:22:21 10:37:21 Visit Abena Patel ABALONE FISHERMAN 350.1.13.10 ity of [facility] 4.2.7.2.686 [place] MATERNAL [phone] Med ical & CHILD [address] [place] [address] 2019-12-30 2019-12-30 Outpatient R [facility] [id number] -[id number] Univers 10:30:00 10:30:00 [id number] it[facility] 2019-12-30 2019-12-30 Outpatient R [facility] [id number] Univers 10:30:00 10:30:00 ity [facility] 2019-12-21 2019-12-21 Telephone [facility] 1.2.499.084 [id number] Univers 00:00:00 00:00:00 [facility] R ABALONE FISHERMAN 350.1.13.10 ity of [facility] 4.2.7.2.686 [place] as MATERNAL [phone] Med ical & CHILD [address] [place] [address] 2019-12-20 2019-12-20 Office [facility] 1.2.840.114 [id number] Univers 13:03:11 13:55:34 Visit [facility] R ABALONE FISHERMAN 350.1.13.10 ity of [facility] 4.2.7.2.686 [place] MATERNAL [phone] [facility] & CHILD [address] [place] [address] 2019-12-20 2019-12-20 Outpatient [facility] [id number] -[id number] Univers 12:45:00 12:45:00 JUDSONEMBER [id number] ity o f [facility] 2019-12-20 2019-12-20 Outpatient [facility] [id number] Univers 12:45:00 12:45:00 [facility] 2019-11-07 2019-11-07 Outpatient R [facility] [id number] -[id number] Univers 14:00:00 14:00:00 [id number] ity [facility] 2019-10-24 2019-10-24 Telephone [facility] 1.2.840.114 [id number] Univers 00:00:00 00:00:00 Abena [place] ABALONE FISHERMAN 350.1.13.10 it y of [place] 4.2.7.2.686 [place] as MATERNAL [phone] Med ical & CHILD [address] [place] [address] [facility] 2019-10-17 2019-10-17 Outpatient R [facility] [id number] -[id number] Univers 15:00:00 15:00:00 ity [facility] 2019-10-17 2019-10-17 Outpatient R [facility] [id number] Univers 15:00:00 15:00:00 ity [facility] 2019-09-28 2019-09-28 Telephone [facility] 1.2.840.114 [id number] Univers 00:00:00 00:00:00 Abena [place] ABALONE FISHERMAN 350.1.13.10 it y of [place] 4.2.7.2.686 [place] MATERNAL [phone] [address] 2019-09-27 2019-09-27 Office [facility] 1.2.256.656 [id number] Univers 14:03:06 14:59:44 Visit Abena [place] ABALONE FISHERMAN 350.1.13.10 it y of [facility] 4.2.7.2.686 [place] as MATERNAL [phone] [address] 2019-09-27 2019-09-27 [facility] [id number] 5Q-20 Univers 14:00:00 14:00:00 ABENA [id number] [facility] 2019-09-27 2019-09-27 Outpatient [facility] [id number] Univers 14:00:00 14:00:00 ABENA [facility] 2019-08-26 2019-08-26 [facility], Ang-Rmchp [facility] 1.2.840. 114 [id number] Univers 12:52:43 13:06:01 Visit Alma Solis ABALONE FISHERMAN 350.1.13. 10 ity of [facility] 4.2.7.2.686 [place] MATERNAL [phone] [address] 2019-08-26 2019-08-26 Outpatient R [facility] [id number] -[id number] Univers 13:00:00 13:00:00 [id number] [facility] 2019-08-26 2019-08-26 [facility] [id number] Univers 13:00:00 13:00:00 ALMA ity o f [facility] 2019-08-19 2019-08-19 Outpatient R [facility] [id number] -20 Univers 13:00:00 13:00:00 [id number] ity of [facility] 2019-08-19 2019-08-19 Outpatient R [facility] [id number] Univers 13:00:00 13:00:00 ity of [facility] 2019-08-18 2019-08-18 Outpatient R [facility] [id number] -20 Univers 13:00:00 13:00:00 [id number] ity of [facility] 2019-08-18 2019-08-18 Outpatient R [facility] [id number] Univers 13:00:00 13:00:00 ity of [facility] 2019-08-18 2019-08-18 Emergency [facility] [id number] Univers 08:24:15 11:52:00 RAVEN h[facility]onds [facility] 2019-08-18 2019-08-18 Emergency [facility] 1.2.125.348 [id number] Univers 08:24:15 11:52:00 Raven Foley 350.1.13.10 i ty of [address] [place] [address] [phone] [facility] 084 [place] 2019-08-18 2019-08-18 Orders Doctor GREGORY 1.2.840.114 [id number] Univers 00:00:00 00:00:00 Only UnassSTEPHANIA obregon 350.1.13.10 ity of [place] [address]686 [place] [phone] [facility] 00[address] [place] 2019-07-31 2019-07-31 Telephone COLT Miramontes 1.2.290.659 [id number] Univers 00:00:00 00:00:00 Gabbie CAT 350.1.13.10 i ty of [address]686 [place] [id number] [facility] 019 [place] 2019-07-28 2019-07-29 Emergency X NICK, [facility] ERT [id number] Univers 18:06:33 00:02:00 SHINTA ity [facility] 2019-07-28 2019-07-29 Emergency [place], [facility] 1.2.840.114 [id number] Univers 18:06:33 00:02:00 Yovani [place]oley 350.1.13.10 i ty of [place] 4.2.7.2.686 [facility] [phone] [place] [address] [place] 2019-07-18 2019-07-[address] [facility] 1.2.840.114 [id number] Univers 12:55:14 14:20:25 ne Visit Alma Estevez ABALONE FISHERMAN 350.1.13.10 ity of [place] 4.2.7.2.686 [place] MATERNAL [phone] Med ical & CHILD [address] [place] [address] 2019-07-18 2019-07-18 [facility] [id number] 5Q-20 Univers 14:00:00 14:00:00 ALMA [id number] cassius o f [facility] 2019-07-18 2019-07-18 [facility] [id number] Univers 14:00:00 14:00:00 ALMA garciay o f [facility] 2019-06-27 2019-06-27 Outpatient R [facility] [id number] -[id number] Univers 15:30:00 15:30:00 [id number] [facility] 2019-06-27 2019-06-27 Outpatient R [facility] [id number] Univers 15:30:00 15:30:00 [facility] 2019-06-26 2019-06-26 Emergency X [facility] ERT [id number] Univers 19:06:29 21:03:00 LORY ity [facility] 2019-06-26 2019-06-26 Emergency [facility] 1.2.840.114 [id number] Univers 19:06:29 21:03:[address] [facility] 350.1.13.10 ity of [place] 4.2.7.2.686 [facility] [phone] [place] [address] [address] ([facility]) 2019-06-26 2019-06-[address] [facility] 1.2.840.114 [id number] Univers 00:00:00 00:00:00 Alma Estevez ABALONE FISHERMAN 350.1.13.10 ity of [place] 4.2.7.2.686 [place] MATERNAL [phone] [facility] [address] [place] [address] 2019-06-24 2019-06-24 Outpatient R [facility] [id number] -[id number] Univers 09:30:00 09:30:00 [id number] ity [facility] 2019-06-24 2019-06-24 Outpatient R [facility] [id number] Univers 09:30:00 09:30:00 ity of [facility] 2019-06-23 2019-06-23 Telemedici Akinsiaure, [facility] 1.2.840.114 [id number] Univers 12:57:38 15:49:57 ne Visit Alma Estevez ABALONE FISHERMAN 350.1.13.10 ity of [place] 4.2.7.2.686 [place] MATERNAL [phone] [address] 2019-06-23 2019-06-23 Outpatient AKINLISSY, [facility] [id number] 5Q-20 Univers 15:30:00 15:30:00 ALMA [id number] ity o f [facility] 2019-06-23 2019-06-23 Outpatient R AKINLISSY, [facility] [id number] Univers 15:30:00 15:30:00 ALMA ity o f [facility] 2019-06-22 2019-06-22 Outpatient R JORGE, [facility] [id number] Univers 13:30:00 13:30:00 ABENA it[facility] 2019-06-22 2019-06-22 Outpatient [facility] [id number] -[id number] Univers 09:00:00 09:00:00 [id number] ity [facility] 2019-06-22 2019-06-22 Telephone Visit, [facility] 1.2.537.881 [id number] Univers 00:00:00 00:00:00 Ang-Rmchp ABALONE FISHERMAN 350.1.13.10 ity of Nurse [place] 4.2.7.2.686 [place] MATERNAL [phone] [facility] & CHILD [address] [place] [address] 2019-06-22 2019-06-22 Refill Doctor [facility] 1.2.840.114 [id number] Univers 00:00:00 00:00:00 Unassigned, ABALONE FISHERMAN 350.1.13.10 ity of [place] [facility] 4.2.7.2.686 [place]wayne as MATERNAL [id number] Med ical & CHILD [address] [place] [address] 2019-06-21 2019-06-21 [facility], Ang-Rmchp [facility] 1.2.840. 114 [id number] Univers 13:00:32 13:15:32 Visit Alma Solis ABALONE FISHERMAN 350.1.13. 10 ity of [place] 4.2.7.2.686 [place] MATERNAL [phone] Med ical & CHILD [address] [place] [address] 2019-06-21 2019-06-21 Outpatient [facility] [id number] -[id number] Univers 10:30:00 10:30:00 [id number] ity of [facility] 2019-06-21 2019-06-21 [facility] [id number] Univers 10:30:00 10:30:00 ALMA hammonds o f [facility] 2019-06-21 2019-06-21 Telephone [facility] 1.2.840.114 [id number] Univers 00:00:00 00:00:00 Abena [place] ABALONE FISHERMAN 350.1.13.10 it y of [facility] 4.2.7.2.686 Dwayne as MATERNAL [phone] Med ical & CHILD [address] [place] [address] 2019-06-20 2019-06-20 Telephone [facility] 1.2.840.114 [id number] Univers 00:00:00 00:00:00 Abena [place] ABALONE FISHERMAN 350.1.13.10 it y of [place] 4.2.7.2.686 [place]way[place] as MATERNAL [id number] Med ical & CHILD [address] [place] [address] 2019-06-10 2019-06-10 Telephone [facility] 1.2.840.114 [id number] Univers 00:00:00 00:00:00 Abena N ABALONE FISHERMAN 350.1.13.10 it y of [place] 4.2.7.2.686 [place] as MATERNAL [id number] Med ical & CHILD [address] [place] [address] 2019-05-20 2019-05-20 Telephone [facility] 1.2.840.114 [id number] Univers 00:00:00 00:00:00 Abena [place] ABALONE FISHERMAN 350.1.13.10 it y of [facility] 4.2.7.2.686 Dwayne as MATERNAL [phone] [facility] ical & CHILD [address] [place] [address] 2019-05-19 2019-05-19 Telephone [facility] 1.2.840.114 [id number] Univers 00:00:00 00:00:00 Abena [place] ABALONE FISHERMAN 350.1.13.10 it y of [facility] 4.2.7.2.686 Dwayne as MATERNAL [phone] [facility] ical & CHILD [address] [place] [address] 2019-05-17 2019-05-17 Office [facility] 1.2.107.717 [id number] Univers 13:24:09 13:50:08 Visit Abena [place] ABALONE FISHERMAN 350.1.13.10 it y of [place] 4.2.7.2.686 [place] as MATERNAL [phone] [facility] [address] [place] [address] 2019-05-17 2019-05-17 Outpatient Bryn PATEL [facility] [id number] 5Q-20 Univers 13:30:00 13:30:00 ABENA [facility] 2019-05-17 2019-05-17 Outpatient Bryn PATEL [facility] [id number] Univers 13:30:00 13:30:00 ABENA [facility] 2019-05-06 2019-05-06 Outpatient Bryn KATZ [facility] [id number] -[id number] Univers 08:15:00 08:15:00 TREVER [id number] cassius o kari [facility] 2019-05-06 2019-05-06 Outpatient Bryn KATZ [facility] [id number] Univers 08:15:00 08:15:00 TREVER hammonds o f [facility] 2019-04-20 2019-04-20 Emergency Peace Paz [facility] 1.2.840.114 [id number] Univers 11:02:10 14:18:00 Yulia [place] 350.1.13.10 i ty [facility] 4.2.7.2.686 [facility] [phone] [facility] 084 [place] 2019-03-29 2019-03-29 Telephone DUANE Katz 1.2.648.102 [id number] Univers 00:00:00 00:00:00 Trever Clemente ABALONE FISHERMAN 350.1.13.10 ity of [facility] 4.2.7.2.686 [place]wayne as MATERNAL [phone] [facility]ILD [address] [place] [address] 2019-03-22 2019-03-22 Telephone DUANE Katz 1.2.212.923 [id number] Univers 00:00:00 00:00:00 Trever Clemente ABALONE FISHERMAN 350.1.13.10 ity of [facility] 4.2.7.2.686 [place] as MATERNAL [phone] [address] 2019-03-21 2019-03-21 Office DUANE Katz 1.2.840.114 [id number] [facility] 15:39:38 16:25:05 Visit Trever Clemente ABALONE FISHERMAN 350.1.13.10 ity of [facility] 4.2.7.2.686 Dway[place] as MATERNAL [phone] [facility] & [address] Results Test Description Test Time Test Comments Results Result Comments Source ETHANOL 2021-02-18 02:35:43 Test Item Value Reference Range Interpretation Comme nts ALCOHOL (test code = 4900842279) <10 mg/dL MARCELLE (test code = MARCELLE) <10 Ajzjpcjd85-291 Toxic>100 Depression of [employer]>400 Fatalities Reported [facility]. METABOLIC PANEL (00328)2021-02-18 02:34:13 Test Item Value Reference Range Interpretation Comments NA (test code = 140 mmol/L 135-145 4762644749) K (test code = 3.5 mmol/L 3.5-5.0 2301349946) CL (test code = 107 mmol/L 98-108 6163488872) CO2 TOTAL (test code = 26 mmol/L 23-31 5682217085) AGAP (test code = 2-16 6198425193) BUN (test code = 3 mg/dL 7-23 L 5765285974) GLUCOSE (test code = 94 mg/dL 70-110 7414706304) CREATININE (test code = 0.72 mg/dL 0.50-1.04 9407848728) TOTAL BILI (test code = 0.6 mg/dL 0.1-1.1 7008892909) CALCIUM (test code = 10.3 mg/dL 8.6-10.6 1101701161) T PROTEIN (test code = 7.1 g/dL 6.3-8.2 2000938585) ALBUMIN (test code = 4.6 g/dL 3.5-5.0 8110624983) ALK PHOS (test code = 85 U/L 34-122 9835863597) ALTv (test code = 15 U/L 5-35 1742-6) AST(SGOT) (test code = 21 U/L 13-40 2637711409) eGFR (test code = mL/min/1.73m2 1757389710) MARCELLE (test code = MARCELLE) Association of [...] tests). Lab Interpretation Abnormal (test code = 78044-3) [facility] WITH [id number] 02:17:34 Test Item Value Reference Range Interpretation [...] RDW-SD (test code = 41.9 fL 39.0-49.9 55315-5) RDW-CV (test code = 12.7 % 12.0-15.5 788-0) PLT (test code = See_Comment [Automated 777-3) message] The sy stem which generated this result transmitted reference range : 166 - 358 10*3/ ?L. The reference r david was not used to interpret this result as normal/abnormal . MPV (test code = 9.5 fL 9.5-12.9 04763-7) NRBC/100 WBC (test See_Comment [Automat ed code = 9278582316) message] The system which generated this result transmitted reference range : 0.0 - 10.0 /100 WBCs. The refer ence range was not u sed to interpret th is result as normal/abnormal . NRBC x10^3 (test code <0.01 See_Comment [Auto mated = 7096603826) message] The s ystem which generated this result transmitted reference range : 10*3/?L. The reference range was not used to interpret this result as normal/abnormal . GRAN MAT (NEUT) % 60.3 % (test code = 770-8) IMM GRAN % (test code 0.80 % = [id number]) LYMPH % (test code = 29.4 % 736-9) MONO % (test code = 7.0 % 5905-5) EOS % (test code = 2.0 % 713-8) BASO % (test code = 0.5 % 706-2) GRAN MAT x10^3(ANC) 7.08 10*3/uL 1.88-7.09 (test code = [id number]) IMM GRAN x10^3 (test 0.09 10*3/uL 0.00-0.06 H code = [id number]) LYMPH x10^3 (test code 3.45 10*3/uL 1.32-3.29 H = 731-0) MONO x10^3 (test code 0.82 10*3/uL 0.33-0.92 = 742-7) EOS x10^3 (test code = 0.23 10*3/uL 0.03-0.39 711-2) BASO x10^3 (test code 0.06 10*3/uL 0.01-0.07 = 704-7) Lab Interpretation Abnormal (test code = 91411-2) [facility] [id number] 21:16:55 Normal MRI of the brain.. NeuroQuant [...] volumetry of the brain was performed using [employer], [place], [place]) software package. The NeuroQuantanalysis was based [...] were within 2 SD of the mean. [facility], Radiant Results Inft User - 10/18/2020 4:18 PM CDT MR BRAIN W WO CONTRASTCOMPARISON: MR brain 11/24/2017.HISTORY: seizures TECHNIQUE: Seizure protocol MRI of the brain was performed prior to andafter intravenous contrast administration. Quantitative volumetry of the brain was performed using [employer]Quant([employer], [place], [place]) software package. The NeuroQuantanalysis was based [...] reviewed this study and agree with the abovereport.[facility]2021-07-30 10:56:47 Test Item Value Reference Range Interpretation Comments [place] (test code = 0.8 mmol/L 0.6-1.2 [id number]) MARCELLE (test code = MARCELLE) Toxic Range: ? Greater than 1.2 mmol/L Lab Interpretation (test Normal code = 99833-6) [facility] [id number] 18:22:00 Test Item Value Reference Range Interpretation Comments LITHIUM LEVEL (BEAKER) 0.8 mmol/L 0.8-1.2 (test code = 630) SCAN RESULT (test code = See Scanned Report [id number]) [place], [id number] 14:13:01Reason for exam:->abnormal imaging [facility] STEPHANsummer : 1995 Sex: FFluoroscopic unit utilized for a procedure performed in the OR. No interpretation was requested. Refer to the operative report for findings. Refer to PACS for patient radiation dose information.COMPREHENSIVE METABOLIC [id number] 06:43:00 Test Item Value Reference Range Interpretation [...] S NOT APPLICABLE FOR DIALYSIS PATIEN TS. Measurement Department Chief Clerk ID - [place] [facility] [place]-09-24 06:04:00 Test Item Value Reference [...] (BEAKER) (test code = 413) COMPREHENSIVE METABOLIC [id number] 07:06:00 Test Item Value Reference Range Interpretation [...] S NOT APPLICABLE FOR DIALYSIS PATIEN TS. Measurement Department Chief Clerk ID - PIAYA [facility] (HEMOGRAM ONLY)2020-09-23 [...] (BEAKER) (test code = 413) COMPREHENSIVE METABOLIC [id number] 08:27:00 Test Item Value Reference Range Interpretation [...] S NOT APPLICABLE FOR DIALYSIS PATIEN TS. Measurement Department Chief Clerk ID - MADISON [id number] 08:27:00 Test Item Value Reference Range Interpretation Comments MAGNESIUM (BEAKER) (test code = 2.4 mg/dL 1.6-2.6 627) Measurement Department Chief Clerk ID - MADISON MPROTHROMBIN TIME/[id number] 07:59:00 Test Item Value Reference Range Interpretation Comments PROTIME (BEAKER) 13.0 seconds 11.9-14.2 (test code = 759) INR (BEAKER) (test 1.00 See_Comment [Automat ed message] code = 370) The system Dialogic generated this result transmitted ref erence range: [...] code = 2801) DRUG SCREEN PANEL 2 [id number] 05:19:56 Test Item Value Reference Range Interpretation Comments AMPHET (test code = Negative Negative 9867328289) VALERIE U (test code = Negative Negative 5272143452) BENZO U (test code = Negative Negative 6302684742) Cocaine Metabolite (test Negative Negative code = 0139607684) METHADONE (test code = Negative Negative 4624922398) OPIATES (test code = Negative Negative 3662084053) PCP (test code = Negative Negative 0145396788) THC (test code = Negative Negative 0739024523) MARCELLE (test code = MARCELLE) Urine Drug [...] testing). Lab Interpretation (test Normal code = 69110-0) [facility] WITH [id number] 04:55:16 Test Item Value Reference Range Interpretation Comments WBC (test code = See_Comment H [Automated 5775-2) message] The sy stem which generated this result transmitted reference range : 4.30 - 11.10 10*3/?L. The reference range was not used to interpret this result as normal/abnormal . RBC (test code = See_Comment L [Automated 559-8) message] The sy stem which [...] RDW-SD (test code = 41.8 fL 39.0-49.9 64484-8) RDW-CV (test code = 12.7 % 12.0-15.5 788-0) PLT (test code = See_Comment [Automated 777-3) message] The sy stem which generated this result transmitted reference range : 166 - 358 10*3/ ?L. The reference r david was not used to interpret this result as normal/abnormal . MPV (test code = 9.3 fL 9.5-12.9 L 31811-5) NRBC/100 WBC (test See_Comment [Automat ed code = 4141977837) message] The system which generated this result transmitted reference range : 0.0 - 10.0 /100 WBCs. The refer ence range was not u sed to interpret th is result as normal/abnormal . NRBC x10^3 (test code <0.01 See_Comment [Auto mated = 7304853944) message] The s ystem which generated this result transmitted reference range : 10*3/?L. The reference range was not used to interpret this result as normal/abnormal . GRAN MAT (NEUT) % 54.5 % (test code = 770-8) IMM GRAN % (test code 1.10 % = 6372691112) LYMPH % (test code = 36.2 % 736-9) MONO % (test code = 6.8 % 5905-5) EOS % (test code = 1.2 % 713-8) BASO % (test code = 0.2 % 706-2) GRAN MAT x10^3(ANC) 6.13 10*3/uL 1.88-7.09 (test code = 5530505593) IMM GRAN x10^3 (test 0.12 10*3/uL 0.00-0.06 H code = 9852593734) LYMPH x10^3 (test code 4.07 10*3/uL 1.32-3.29 H = 731-0) MONO x10^3 (test code 0.76 10*3/uL 0.33-0.92 = 742-7) EOS x10^3 (test code = 0.14 10*3/uL 0.03-0.39 711-2) BASO x10^3 (test code <0.03 0.01-0.07 = 704-7) Lab Interpretation Abnormal (test code = 21160-8) [id number] 04:50[facility]00 Test Item Value Reference Range Interpretation Comments POCT PREG (test code = 1605) negative POCT PREG LOT # (test code = 3575) [id number] POCT PREG TEST DATE (test 03-08-2022 code = 3576) Lab Interpretation (test code = Normal 84612-0) [facility] 04[facility]44:46 Test Item Value Reference Range Interpretation Comments APPEARANCE (test code = Clear Clear 0701728106) COLOR (test code = Straw Yellow A 4782123225) PH (test code = 4.8-8.0 9857474216) SP GRAVITY (test code = 1.003-1.030 4877481994) GLU U QUAL (test code = Normal Normal 6204647768) BLOOD (test code = Negative Negative 8327680922) KETONES (test code = Negative Negative 5182802374) PROTEIN (test code = Negative Negative 2887-8) UROBILIN (test code = Normal Normal 5027297604) BILIRUBIN (test code = Negative Negative 1229775077) NITRITE (test code = Negative Negative 8938755418) LEUK WILBERT (test code = Negative Negative 2208325451) RBC/HPF (test code = See_Comment [Autom ated message] 3837429794) The system Dialogic generated this result transmitted ref erence range: 0 - 3 HP F. The reference range was not used to int erpret this result as normal/abnormal . WBC/HPF (test code = See_Comment [Autom ated message] 4320133487) The system Dialogic generated this result transmitted ref erence range: 0 - 5 HP F. The reference range was not used to int erpret this result as normal/abnormal . BACTERIA (test code = Negative Negative 3746131824) SQ EPITH (test code = See_Comment H [Auto mated message] 6026717821) The system Dialogic generated this result transmitted ref erence range: <=2 HPF. The reference range was not used to int erpret this result as normal/abnormal . Lab Interpretation (test Abnormal code = 53254-2) [facility] 04:38:17 Test Item Value Reference Range Interpretation Comments ALCOHOL (test code = <10 mg/dL 3209072808) MARCELLE (test code = Toxic Greater than or MARCELLE) equal to 80 mg/dL. NOTE: Whole blood values are approximately 10% to 15% lower than serum and plasma. [facility] [id number] 04:38:12 Test Item Value Reference Range Interpretation Comments CK (test code = 8443410523) <20 33-194 L Lab Interpretation (test code = Abnormal 46397-0) [facility] (47422)2020-09-15 04:38:07 Test Item Value Reference Range Interpretation Comments NA (test code = 141 mmol/L 135-145 5559840256) K (test code = 3.7 mmol/L 3.5-5.0 3517870289) CL (test code = 108 mmol/L 98-108 5779548912) CO2 TOTAL (test code = 25 mmol/L 23-31 2480657948) AGAP (test code = 2-16 0480620533) BUN (test code = 9 mg/dL 7-23 5306578809) GLUCOSE (test code = 89 mg/dL 70-110 0019475050) CREATININE (test code = 0.54 mg/dL 0.50-1.04 0960593122) TOTAL BILI (test code = <0.1 0.1-1.1 L 6744270791) CALCIUM (test code = 9.0 mg/dL 8.6-10.6 0437818856) T PROTEIN (test code = 5.8 g/dL 6.3-8.2 L 4416939786) ALBUMIN (test code = 3.4 g/dL 3.5-5.0 L 6176150476) ALK PHOS (test code = 71 U/L 34-122 9246049202) ALTv (test code = 13 U/L 5-35 1742-6) AST(SGOT) (test code = 18 U/L 13-40 8264413425) eGFR (test code = mL/min/1.73m2 0869445426) MARCELLE (test code = MARCELLE) Association of [...] tests). Lab Interpretation Abnormal (test code = 95723-2) [facility] [id number] 17:30:33 Test Item Value Reference Range Interpretation Comments APPEARANCE (test code = Hazy Clear A 6685626287) COLOR (test code = Straw Yellow A 4943218332) PH (test code = 4.8-8.0 1582620012) SP GRAVITY (test code = 1.003-1.030 7473487486) GLU U QUAL (test code = Normal Normal 8906807078) BLOOD (test code = Negative Negative 5630867564) KETONES (test code = Negative Negative 3814840155) PROTEIN (test code = Negative Negative 2887-8) UROBILIN (test code = Normal Normal 5521347305) BILIRUBIN (test code = Negative Negative 0244873121) NITRITE (test code = Negative Negative 8397786718) LEUK WILBERT (test code = 500/uL Negative A 2781262444) RBC/HPF (test code = See_Comment [Autom ated message] 0206371095) The system Dialogic generated this result transmitted ref erence range: 0 - 3 HP F. The reference range was not used to int erpret this result as normal/abnormal . WBC/HPF (test code = See_Comment H [Autom ated message] 4643128198) The system Dialogic generated this result transmitted ref erence range: 0 - 5 HP F. The reference range was not used to int erpret this result as normal/abnormal . BACTERIA (test code = Few Negative A 8292069620) SQ EPITH (test code = HPF 3803174825) WBC CLUMPS (test code = See_Comment H [Au tomated message] 9950693977) The system Dialogic generated this result transmitted ref erence range: <=1 HPF. The reference range was not used to int erpret this result as normal/abnormal . Lab Interpretation (test Abnormal code = 91228-7) [facility] [id number] 17:08:00 Test Item Value Reference Range Interpretation Comments POCT PREG (test code = 1605) negative On board controls acceptable with present C Line (test code = 3574) POCT PREG LOT # (test code = 3575) [id number] POCT PREG TEST DATE (test code = 3576) Lab Interpretation (test code = Normal 28862-9) [facility]. Metabolic Panel ([id number])2020-08-31 16:55:49 Test Item Value Reference Range Interpretation Comments NA (test code = 141 mmol/L 135-145 2576097334) K (test code = 3.9 mmol/L 3.5-5.0 3428872386) CL (test code = 106 mmol/L 98-108 1425323475) CO2 TOTAL (test code = 27 mmol/L 23-31 9611866273) AGAP (test code = 2-16 0862431554) BUN (test code = 5 mg/dL 7-23 L 3942912229) GLUCOSE (test code = 91 mg/dL 70-110 8974527115) CREATININE (test code = 0.68 mg/dL 0.50-1.04 7709991648) TOTAL BILI (test code = 0.2 mg/dL 0.1-1.4 6558080439) CALCIUM (test code = 10.0 mg/dL 8.6-10.6 8713074476) T PROTEIN (test code = 7.2 g/dL 6.3-8.2 6659980652) ALBUMIN (test code = 4.3 g/dL 3.5-5.0 1602406481) ALK PHOS (test code = 75 U/L 34-122 3594924955) ALTv (test code = 14 U/L 5-35 1742-6) AST(SGOT) (test code = 30 U/L 13-40 6198776828) eGFR (test code = mL/min/1.73m2 7558406307) MARCELLE (test code = MARCELLE) Association of [...] tests). Lab Interpretation Abnormal (test code = 16781-8) [facility] with [id number] 16:51:47 Test Item Value Reference Range Interpretation Comments WBC (test code = See_Comment [Automated 9580-2) message] The sy stem which generated this result transmitted reference range : 4.30 - 11.10 10*3/?L. The reference range was not used to interpret this result as normal/abnormal . RBC (test code = See_Comment [Automated 549-8) message] The sy stem which generated this [...] RDW-SD (test code = 43.1 fL 39.0-49.9 75773-2) RDW-CV (test code = 13.1 % 12.0-15.5 788-0) PLT (test code = See_Comment [Automated 777-3) message] The sy stem which generated this result transmitted reference range : 166 - 358 10*3/ ?L. The reference r david was not used to interpret this result as normal/abnormal . MPV (test code = 10.3 fL 9.5-12.9 81911-3) NRBC/100 WBC (test See_Comment [Automat ed code = 8783337667) message] The system which generated this result transmitted reference range : 0.0 - 10.0 /100 WBCs. The refer ence range was not u sed to interpret th is result as normal/abnormal . NRBC x10^3 (test code <0.01 See_Comment [Auto mated = 1322509902) message] The s ystem which generated this result transmitted reference range : 10*3/?L. The reference range was not used to interpret this result as normal/abnormal . GRAN MAT (NEUT) % 70.5 % (test code = 770-8) IMM GRAN % (test code 0.70 % = 3174261418) LYMPH % (test code = 19.0 % 736-9) MONO % (test code = 8.8 % 5905-5) EOS % (test code = 0.7 % 713-8) BASO % (test code = 0.3 % 706-2) GRAN MAT x10^3(ANC) 4.96 10*3/uL 1.88-7.09 (test code = 3091741006) IMM GRAN x10^3 (test 0.05 10*3/uL 0.00-0.06 code = 5524130552) LYMPH x10^3 (test code 1.34 10*3/uL 1.32-3.29 = 731-0) MONO x10^3 (test code 0.62 10*3/uL 0.33-0.92 = 742-7) EOS x10^3 (test code = 0.05 10*3/uL 0.03-0.39 711-2) BASO x10^3 (test code <0.03 0.01-0.07 = 704-7) Lab Interpretation Abnormal (test code = 80275-3) [facility] Whole [id number] 16:37:28 Test Item Value Reference Range Interpretation Comments LACTIC ACID (test code = 1.74 mmol/L 0.50-2.20 5861292754) Lab Interpretation (test code = Normal 70591-0) [facility] 03:04:28 Test Item Value Reference Range Interpretation Comments APPEARANCE (test code = Clear Clear 5671341158) COLOR (test code = Colorless Yellow A 1640531909) PH (test code = 4.8-8.0 4085130861) SP GRAVITY (test code = 1.003-1.030 8796761233) GLU U QUAL (test code = Normal Normal 7979048151) BLOOD (test code = 2+ Negative A 9443033967) KETONES (test code = Negative Negative 9815016863) PROTEIN (test code = Negative Negative 2887-8) UROBILIN (test code = Normal Normal 5929251619) BILIRUBIN (test code = Negative Negative 4137859314) NITRITE (test code = Negative Negative 5959112248) LEUK WILBERT (test code = Negative Negative 7158735295) RBC/HPF (test code = See_Comment [Autom ated message] 0215416207) The system Dialogic generated this result transmit con reference range : 0 - 3 HPF. The refe rence range was not u sed to interpret th is result as normal/abnormal . WBC/HPF (test code = <1 See_Comment [Autom ated message] 8118050678) The system Dialogic generated this result transmit con reference range : 0 - 5 HPF. The refe rence range was not u sed to interpret th is result as normal/abnormal . BACTERIA (test code = Few Negative A 0330131299) SQ EPITH (test code = HPF 0998165191) Lab Interpretation (test Abnormal code = 56138-3) [facility] [id number] 02:44:00 Test Item Value Reference Range Interpretation Comments POCT PREG (test code = 1605) negative On board controls acceptable with present C Line (test code = 3574) POCT PREG LOT # (test code = 3575) [id number] POCT PREG TEST DATE (test 2022-03-08 code = 3576) Lab Interpretation (test code = Normal 26310-6) [facility] (ID NOW RAPID TESTING)2020-08-30 02:29:07 Test Item Value Reference Range Interpretation Comments SARS-CoV-2 Rapid ID NOW Positive Not Detected A (test code = 39047-1) MARCELLE (test code = MARCELLE) ID NOW COVID-19 Assay is an isothermal nucleic acid amplification test intended for the qualitative detection of nucleic acid from SARS-CoV-2 viral RNA in nasopharyngeal (SPA EXPERIENCE COORDINATOR) specimens. It is used under Emergency Use [...] indicated. Lab Interpretation Abnormal (test code = 78354-2) [facility] URINALYSIS W/O SPECIFIC [id number] 16:04:00 Test Item Value Reference Range Interpretation [...] code = 3257) Trace Negative - Negative [facility] URINALYSIS W/O SPECIFIC [id number] 16:04:00 Test Item Value Reference Range Interpretation [...] code = 3257) Trace Negative - Negative [facility] URINALYSIS W/O SPECIFIC [id number] 16:04:00 Test Item Value Reference Range Interpretation [...] code = 3257) Trace Negative - Negative [facility] 02:02:48 Test Item Value Reference Range Interpretation Comments APPEARANCE (test code = Cloudy Clear A 3635482200) COLOR (test code = Yellow Yellow 7217375267) PH (test code = 4.8-8.0 1451678744) SP GRAVITY (test code = 1.003-1.030 4597597069) GLU U QUAL (test code = Normal Normal 7973879386) BLOOD (test code = 2+ Negative A 4027596191) KETONES (test code = Negative Negative 2107875662) PROTEIN (test code = 100 mg/dL Negative A 2887-8) UROBILIN (test code = Normal Normal 4893873004) BILIRUBIN (test code = Negative Negative 3940952141) NITRITE (test code = Negative Negative 7165150778) LEUK WILBERT (test code = 500/uL Negative A 1309875393) RBC/HPF (test code = See_Comment H [Autom ated message] 5265143608) The system Dialogic generated this result transmit con reference range : 0 - 3 HPF. The refe rence range was not u sed to interpret th is result as normal/abnormal . WBC/HPF (test code = >182 See_Comment H [Autom ated message] 4845122964) The system Dialogic generated this result transmit con reference range : 0 - 5 HPF. The refe rence range was not u sed to interpret th is result as normal/abnormal . BACTERIA (test code = Few Negative A 4439790747) MUCOUS (test code = Slight Negative LPF A 7398186217) SQ EPITH (test code = HPF 2014060333) WBC CLUMPS (test code = See_Comment H [Au tomated message] 6127106508) The system Dialogic generated this result transmit con reference range : <=1 HPF. The refere nce range was not u sed to interpret th is result as normal/abnormal . Lab Interpretation (test Abnormal code = 02063-1) [facility] [id number] 02:00:26 Test Item Value Reference Range Interpretation Comments NA (test code = 139 mmol/L 135-145 7486585448) K (test code = 4.1 mmol/L 3.5-5.0 5565030827) CL (test code = 99 mmol/L 98-108 3584993393) CO2 TOTAL (test code = 32 mmol/L 23-31 H 3302138805) AGAP (test code = 2-16 5841576817) BUN (test code = 4 mg/dL 7-23 L 1194636950) GLUCOSE (test code = 102 mg/dL 70-110 8673432316) CREATININE (test code = 0.63 mg/dL 0.50-1.04 2668697542) TOTAL BILI (test code = 0.8 mg/dL 0.1-1.5 1411055090) CALCIUM (test code = 10.2 mg/dL 8.6-10.6 1261598240) T PROTEIN (test code = 8.3 g/dL 6.3-8.2 H 2995429504) ALBUMIN (test code = 5.3 g/dL 3.5-5.0 H 1964859605) ALK PHOS (test code = 80 U/L 34-122 9397641302) ALTv (test code = 13 U/L 5-35 1742-6) AST(SGOT) (test code = 24 U/L 13-40 0304476688) eGFR Calculation mL/min/1.73m2 (Non-) (test code = 3480668892) eGFR Calculation mL/min/1.73m2 () (test code = 4932306431) MARCELLE (test code = MARCELLE) Association of [...] tests). Lab Interpretation Abnormal (test code = 40887-9) [facility] with [id number] 01:59:51 Test Item Value Reference Range Interpretation Comments WBC (test code = See_Comment H [Automated 6090-2) message] The system which generated this result transmit con reference range : 4.30 - 11.10 10*3/?L. The reference range was not used to interpret this result as normal/abnormal . RBC (test code = See_Comment [Automated 279-8) message] The system which generated this result [...] RDW-SD (test code = 40.9 fL 39.0-49.9 47729-3) RDW-CV (test code = 12.4 % 12.0-15.5 788-0) PLT (test code = See_Comment [Automated 777-3) message] The system which generated this result transmit con reference range : 166 - 358 10*3/ ?L. The reference range was not u sed to interpret th is result as normal/abnormal . MPV (test code = 10.1 fL 9.5-12.9 03360-8) NRBC/100 WBC (test See_Comment [Automat ed code = 1803611051) message] The system which generated this result transmit con reference range : 0.0 - 10.0 /100 WBCs. The reference range was not used to interpret this result as normal/abnormal . NRBC x10^3 (test code <0.01 See_Comment [Auto mated = 9111478102) message] The system which generated this result transmit con reference range : 10*3/?L. The reference range was not used to interpret this result as normal/abnormal . GRAN MAT (NEUT) % 78.8 % (test code = 770-8) IMM GRAN % (test code 1.00 % = 2918316409) LYMPH % (test code = 12.8 % 736-9) MONO % (test code = 6.5 % 5905-5) EOS % (test code = 0.5 % 713-8) BASO % (test code = 0.4 % 706-2) GRAN MAT x10^3(ANC) 15.38 10*3/uL 1.88-7.09 H (test code = 5707231178) IMM GRAN x10^3 (test 0.19 10*3/uL 0.00-0.06 H code = 8371299555) LYMPH x10^3 (test code 2.49 10*3/uL 1.32-3.29 = 731-0) MONO x10^3 (test code 1.26 10*3/uL 0.33-0.92 H = 742-7) EOS x10^3 (test code = 0.09 10*3/uL 0.03-0.39 711-2) BASO x10^3 (test code 0.07 10*3/uL 0.01-0.07 = 704-7) Lab Interpretation Abnormal (test code = 28653-3) [facility] [id number] 01:08:00 Test Item Value Reference Range Interpretation Comments POCT PREG (test code = 1605) negative On board controls acceptable with positive C Line (test code = 3574) POCT PREG LOT # (test code = 3575) [id number] POCT PREG TEST DATE (test 12/06/2021 code = 3576) Lab Interpretation (test code = Normal 65476-7) [facility] URINALYSIS W/O SPECIFIC [id number] 19:59:00 Test Item Value Reference Range Interpretation [...] code = 3257) negative Negative - Negative [facility] URINALYSIS W/O SPECIFIC [id number] 19:59:00 Test Item Value Reference Range Interpretation [...] code = 3257) negative Negative - Negative [facility] [id number] 19:41:00 Test Item Value Reference Range Interpretation Comments POCT PREG (test code = 1605) Negative On board controls acceptable with C Yes Line (test code = 3574) POCT PREG LOT # (test code = 3575) POCT PREG TEST DATE (test code = 3576) [facility] [id number] 19:41:00 Test Item Value Reference Range Interpretation Comments POCT PREG (test code = 1605) Negative On board controls acceptable with C Yes Line (test code = 3574) POCT PREG LOT # (test code = 3575) POCT PREG TEST DATE (test code = 3576) [facility] 1 [id number] 15:44:00HISTORY: Cough. TECHNIQUE: Portable AP erect view of the chest is obtained. Comparison madewith 07/28/2019 study. FINDINGS: No acute pneumonia. No pneumothorax or pleural effusion orpulmonary congestiondetected. Cardiac size is within normal limits. Smallcalcified granulomas are suspected in left middle and lower lung zones. CONCLUSIONS: No signs of acute cardiopulmonary disease.[facility], [employer] Results[employer]ft User - 08/18/2019 10:45 AM CDTHISTORY: Cough.TECHNIQUE: Portable AP erect view of the chest is obtained. Comparison madewith 07/28/2019 study.FINDINGS: No acute pneumonia. No pneumothorax or pleural effusion orpulmonary congestion detected. Cardiac size is within normal limits. Smallcalcified granulomas are suspected in left middle and lower lung zones.CONCLUSIONS: No signs of acute cardiopulmonary disease.[facility] WITH [id number] 15:25:00 Test Item Value Reference Range Interpretation Comments WBC (test code = See_Comment H [Automated 2890-2) message] The sy stem which generated this result transmitted reference range : 4.30 - 11.10 10*3/?L. The reference range was not used to interpret this result as normal/abnormal . RBC (test code = See_Comment [Automated 117-8) message] The sy stem which generated this [...] RDW-SD (test code = 42.2 fL 39-49.9 79786-9) RDW-CV (test code = 13.1 % 12-15.5 788-0) PLT (test code = See_Comment H [Automated 777-3) message] The sy stem which generated this result transmitted reference range : 166 - 358 10*3/ ?L. The reference r david was not used to interpret this result as normal/abnormal . MPV (test code = 10.3 fL 9.5-12.9 96887-8) NRBC/100 WBC (test See_Comment [Automat ed code = 5833499590) message] The system which generated this result transmitted reference range : 0.0 - 10.0 /100 WBCs. The refer ence range was not u sed to interpret th is result as normal/abnormal . NRBC x10^3 (test code <0.01 See_Comment [Auto mated = 9265847384) message] The s ystem which generated this result transmitted reference range : 10*3/?L. The reference range was not used to interpret this result as normal/abnormal . GRAN MAT (NEUT) % 57.0 % (test code = 770-8) IMM GRAN % (test code 0.90 % = 6447757228) LYMPH % (test code = 31.7 % 736-9) MONO % (test code = 8.1 % 5905-5) EOS % (test code = 1.8 % 713-8) BASO % (test code = 0.5 % 706-2) GRAN MAT x10^3(ANC) 7.49 10*3/uL 1.88-7.09 H (test code = 4715150686) IMM GRAN x10^3 (test 0.12 10*3/uL 0-0.06 H code = 7580482319) LYMPH x10^3 (test code 4.16 10*3/uL 1.32-3.29 H = 731-0) MONO x10^3 (test code 1.07 10*3/uL 0.33-0.92 H = 742-7) EOS x10^3 (test code = 0.23 10*3/uL 0.03-0.39 711-2) BASO x10^3 (test code 0.06 10*3/uL 0.01-0.07 = 704-7) Lab Interpretation Abnormal (test code = 30080-8) [facility], [id number] 14:52:00 Test Item Value Reference Range Interpretation Comments PREG SERUM (test code Negative = 1908818261) MARCELLE (test code = MARCELLE) Less than 10 IU/L. ?If low titer or ectopic is suspected, resubmit specimen in 48-72 hours. [facility] [facility] (NA, K, CL, CO2, GLUCOSE, BUN, CREATININE, CA)2019-08-18 14:48:00 Test Item Value Reference Range Interpretation Comments NA (test code = 141 mmol/L 135-145 1713051981) K (test code = 3.9 mmol/L 3.5-5 9205954109) CL (test code = 111 mmol/L 98-108 H 2977012334) CO2 TOTAL (test code = 21 mmol/L 23-31 L 1595675206) AGAP (test code = 2-16 8348059432) BUN (test code = 14 mg/dL 7-23 7107587784) GLUCOSE (test code = 92 mg/dL 70-110 8757511782) CREATININE (test code = 0.80 mg/dL 0.5-1.04 4293234137) CALCIUM (test code = 9.3 mg/dL 8.6-10.6 6623747104) eGFR Calculation mL/min/1.73m2 (Non-) (test code = 3364756027) eGFR Calculation mL/min/1.73m2 () (test code = 2334000030) MARCELLE (test code = MARCELLE) Association of [...] tests). Lab Interpretation Abnormal (test code = 90894-5) [facility] (ALB, T.PRO, BILI T, BU/BC, ALT, AST, ALK PHOS)2019-08-18 14:48:00 Test Item Value Reference Range Interpretation Comments TOTAL BILI (test code = 8015911848) 0.4 mg/dL 0.1-1.1 BILI UNCON (test code = 2566441144) 0.4 mg/dL 0.1-1.1 BILI CONJ (test code = 5766461534) 0.0 mg/dL 0-0.3 T PROTEIN (test code = 1151234143) 8.1 g/dL 6.3-8.2 ALBUMIN (test code = 5809714630) 4.7 g/dL 3.5-5 ALK PHOS (test code = 1582139006) 74 U/L 34-122 ALTv (test code = 1742-6) 17 U/L 5-35 AST(SGOT) (test code = 3474197600) 27 U/L 13-40 Lab Interpretation (test code = Normal 69965-7) [facility] 14:[facility]00 Test Item Value Reference Range Interpretation Comments APTT Patient (test See_Comment H [Automat ed code = 3173-2) message] The system which generated this result transmitted reference range : 23 - 38 Seconds . The reference range was not used to interpr et this result as normal/abnormal . MARCELLE (test code = MARCELLE) The [facility] patient population mean normal value for aPTT is 30 seconds. Lab Interpretation Abnormal (test code = 79554-7) [facility] SCREEN FOR GROUP [id number] 14:46:00 Test Item Value Reference Range Interpretation Comments Streptococcus pyogenes (group A) Negative Negative antigen (test code = 89846-9) Lab Interpretation (test code = Normal 20461-8) [facility] (PT[facility] / [id number] 14:43:00 Test Item Value Reference Range Interpretation Comments PROTIME PATIENT (test See_Comment [Auto mated message] code = 5964-2) The system youmag generated this result transmitted ref erence range: 12.0 - 1 4.7 Seconds. The re ference range was not u sed to interpret this result as normal/abnor mal. INR (test code = 6301-6) Nor mal INR <1.1; Warfarin Therap eutic range 2.0 to 3. 0 or 2.5 to 3.5, dep ending upon the indica tions. Lab Interpretation (test Normal code = 31307-9) [facility] (ID NOW RAPID TESTING)2019-08-18 14:43:00 Test Item Value Reference Range Interpretation Comments SARS-CoV-2 Rapid ID NOW Not Detected Not Detected (test code = 32495-9) MARCELLE (test code = MARCELLE) ID NOW COVID-19 Assay is an isothermal nucleic acid amplification test intended for the qualitative detection of nucleic acid from SARS-CoV-2 viral RNA in nasopharyngeal (SPA EXPERIENCE COORDINATOR) specimens. It is used under Emergency Use [...] indicated. Lab Interpretation Normal (test code = 58656-1) [facility]. METABOLIC PANEL (33899)2019-07-29 03:00:00 Test Item Value Reference Range Interpretation Comments NA (test code = 141 mmol/L 135-145 9946585408) K (test code = 3.8 mmol/L 3.5-5 8749657230) CL (test code = 105 mmol/L 98-108 3553783413) CO2 TOTAL (test code = 27 mmol/L 23-31 7154605487) AGAP (test code = 2-16 9717529731) BUN (test code = 11 mg/dL 7-23 7161958061) GLUCOSE (test code = 91 mg/dL 70-110 4643567028) CREATININE (test code 0.58 mg/dL 0.5-1.04 = 8219084542) TOTAL BILI (test code 0.4 mg/dL 0.1-1.1 = 6610448317) CALCIUM (test code = 9.9 mg/dL 8.6-10.6 3656389354) T PROTEIN (test code = 7.3 g/dL 6.3-8.2 1138696296) ALBUMIN (test code = 4.5 g/dL 3.5-5 5771993361) ALK PHOS (test code = 53 U/L 34-122 1173275965) ALTv (test code = 12 U/L 5-35 1742-6) AST(SGOT) (test code = 27 U/L 13-40 7512668995) eGFR Calculation mL/min/1.73m2 (Non-) (test code = 0551024557) eGFR Calculation mL/min/1.73m2 () (test code = 9853226488) MARCELLE (test code = MARCELLE) Association of [...] or urine or abnormalities in imaging tests). [id number] 02:43:00 Test Item Value Reference Range Interpretation Comments TROPONIN I (test <0.012 See_Comment [Automated code = 4398417088) message] The system which generated this result [...] ? Lab Interpretation Normal (test code = 10743-4) [facility]-[id number] 02:32:00 Test Item Value Reference Interpretation Comments Range D-DIMER (test code = See_Comment H [Autom ated 8413631333) message] The system which generated this result [...] diagnosis. Lab Interpretation Abnormal (test code = 18038-5) [facility] WITH [id number] 02:21:00 Test Item Value Reference Range Interpretation Comments WBC (test code = See_Comment H [Automated 8890-2) message] The sy stem which generated this result transmitted reference range : 4.30 - 11.10 10*3/?L. The reference range was not used to interpret this result as normal/abnormal . RBC (test code = See_Comment [Automated 549-8) message] The sy stem which generated this [...] RDW-SD (test code = 40.0 fL 39-49.9 78066-9) RDW-CV (test code = 12.5 % 12-15.5 788-0) PLT (test code = See_Comment [Automated 777-3) message] The sy stem which generated this result transmitted reference range : 166 - 358 10*3/ ?L. The reference r david was not used to interpret this result as normal/abnormal . MPV (test code = 10.4 fL 9.5-12.9 72010-0) NRBC/100 WBC (test See_Comment [Automat ed code = 8798856660) message] The system which generated this result transmitted reference range : 0.0 - 10.0 /100 WBCs. The refer ence range was not u sed to interpret th is result as normal/abnormal . NRBC x10^3 (test code <0.01 See_Comment [Auto mated = 4835306886) message] The s ystem which generated this result transmitted reference range : 10*3/?L. The reference range was not used to interpret this result as normal/abnormal . GRAN MAT (NEUT) % 58.3 % (test code = 770-8) IMM GRAN % (test code 0.80 % = 9449079284) LYMPH % (test code = 32.1 % 736-9) MONO % (test code = 6.7 % 5905-5) EOS % (test code = 1.7 % 713-8) BASO % (test code = 0.4 % 706-2) GRAN MAT x10^3(ANC) 6.48 10*3/uL 1.88-7.09 (test code = 4124710154) IMM GRAN x10^3 (test 0.09 10*3/uL 0-0.06 H code = 4327663966) LYMPH x10^3 (test code 3.57 10*3/uL 1.32-3.29 H = 731-0) MONO x10^3 (test code 0.75 10*3/uL 0.33-0.92 = 742-7) EOS x10^3 (test code = 0.19 10*3/uL 0.03-0.39 711-2) BASO x10^3 (test code 0.04 10*3/uL 0.01-0.07 = 704-7) Lab Interpretation Abnormal (test code = 73669-0) [facility] 2 [id number] 02:02:09 No acute cardiopulmonary process. Preliminary Report [...] reviewed this study and agree with the abovereport.[facility] COVID-19 (ID NOW RAPID TESTING)2019-07-28 23:48:00 Test Item Value Reference Range Interpretation Comments SARS-CoV-2 Rapid ID NOW Not Detected Not Detected (test code = 38756-8) MARCELLE (test code = MARCELLE) ID NOW COVID-19 Assay is an isothermal nucleic acid amplification test intended for the qualitative detection of nucleic acid from SARS-CoV-2 viral RNA in nasopharyngeal (SPA EXPERIENCE COORDINATOR) specimens. It is used under Emergency Use [...] indicated. Lab Interpretation Normal (test code = 85596-2) [facility] [id number] 23:19:00 Test Item Value Reference Range Interpretation Comments POCT PREG (test code = 1605) Negative On board controls acceptable with Present C Line (test code = 3574) POCT PREG LOT # (test code = 3575) [id number] POCT PREG TEST DATE (test 10/06/2020 code = 3576) Lab Interpretation (test code = Normal 31622-9) [facility] ABDOMEN PELVIS WO [id number] 01:14:52 No acute intra-abdominal process. EXAM: CT [...] lytic or sclerotic bony lesions.IMPRESSIONNo acute intra-abdominal process.[facility] (NA, K, CL, CO2, GLUCOSE, BUN, CREATININE, CA)2019-06-27 00:52:00 Test Item Value Reference Range Interpretation Comments NA (test code = 139 mmol/L 135-145 5684999483) K (test code = 4.3 mmol/L 3.5-5 1794605044) CL (test code = 103 mmol/L 98-108 9512453491) CO2 TOTAL (test code = 26 mmol/L 23-31 2006875015) AGAP (test code = 2-16 0731507933) BUN (test code = 9 mg/dL 7-23 6838516678) GLUCOSE (test code = 90 mg/dL 70-110 6200269764) CREATININE (test code 0.56 mg/dL 0.5-1.04 = 2884941475) CALCIUM (test code = 9.4 mg/dL 8.6-10.6 5961965894) eGFR Calculation mL/min/1.73m2 (Non-) (test code = 0420747670) eGFR Calculation mL/min/1.73m2 () (test code = 8538455589) MARCELLE (test code = MARCELLE) Association of [...] or urine or abnormalities in imaging tests). [facility] Hospital[facility]inalysis2020-04-20 00:46:00 Test Item Value Reference Range Interpretation Comments APPEARANCE (test code = Hazy Clear A 0560099008) COLOR (test code = Yellow Yellow 1350536603) PH (test code = 4.8-8.0 0287900885) SP GRAVITY (test code = 1.003-1.030 6518826937) GLU U QUAL (test code = Normal Normal 2355095535) BLOOD (test code = Negative Negative Interfere nce from 1735290053) ascorbic acid m ay cause false neg ative results. KETONES (test code = Negative Negative 1417051644) PROTEIN (test code = Negative Negative 2887-8) UROBILIN (test code = Normal Normal 1381075005) BILIRUBIN (test code = Negative Negative 7797376655) NITRITE (test code = Negative Negative 5606100758) LEUK WILBERT (test code = 25/uL Negative A 9962369347) RBC/HPF (test code = See_Comment [Autom ated message] 5930268303) The system Dialogic generated this result transmitted ref erence range: 0 - 3 HP F. The reference range was not used to int erpret this result as normal/abnormal . WBC/HPF (test code = See_Comment H [Autom ated message] 0950487912) The system Dialogic generated this result transmitted ref erence range: 0 - 5 HP F. The reference range was not used to int erpret this result as normal/abnormal . BACTERIA (test code = Few Negative A 8040995346) MUCOUS (test code = Slight Negative LPF A 5617987850) SQ EPITH (test code = See_Comment H [Auto mated message] 9295092805) The system Dialogic generated this result transmitted ref erence range: <=2 HPF. The reference range was not used to int erpret this result as normal/abnormal . ASCORBIC ACID (test 20 mg/dL+ code = 1073488985) Lab Interpretation Abnormal (test code = 88806-0) [facility] WITH [id number] 00:43:00 Test Item Value Reference Range Interpretation Comments WBC (test code = See_Comment [Automated 6690-2) message] The sy stem which [...] (test code = 38.9 fL 39-49.9 L 76974-8) RDW-CV (test code = 12.1 % 12-15.5 788-0) PLT (test code = See_Comment [Automated 777-3) message] The sy stem which generated this result transmitted reference range : 166 - 358 10*3/ ?L. The reference r david was not used to interpret this result as normal/abnormal . MPV (test code = 10.1 fL 9.5-12.9 60844-2) NRBC/100 WBC (test See_Comment [Automat ed code = 4811928848) message] The system which generated this result transmitted reference range : 0.0 - 10.0 /100 WBCs. The refer ence range was not u sed to interpret th is result as normal/abnormal . NRBC x10^3 (test code <0.01 See_Comment [Auto mated = 3283482507) message] The s ystem which generated this result transmitted reference range : 10*3/?L. The reference range was not used to interpret this result as normal/abnormal . GRAN MAT (NEUT) % 62.9 % (test code = 770-8) IMM GRAN % (test code 0.50 % = 6890269693) LYMPH % (test code = 28.0 % 736-9) MONO % (test code = 7.0 % 5905-5) EOS % (test code = 1.1 % 713-8) BASO % (test code = 0.5 % 706-2) GRAN MAT x10^3(ANC) 5.81 10*3/uL 1.88-7.09 (test code = 2392292086) IMM GRAN x10^3 (test 0.05 10*3/uL 0-0.06 code = 6583530455) LYMPH x10^3 (test code 2.59 10*3/uL 1.32-3.29 = 731-0) MONO x10^3 (test code 0.65 10*3/uL 0.33-0.92 = 742-7) EOS x10^3 (test code = 0.10 10*3/uL 0.03-0.39 711-2) BASO x10^3 (test code 0.05 10*3/uL 0.01-0.07 = 704-7) Lab Interpretation Abnormal (test code = 59938-3) [facility], [id number] 00:37:00 Test Item Value Reference Range Interpretation Comments POCT PREG (test code = 1605) Negative On board controls acceptable with Present C Line (test code = 3574) POCT PREG LOT # (test code = 3575) [id number] POCT PREG TEST DATE (test 11/06/2020 code = 3576) Lab Interpretation (test code = Normal 47936-4) [facility] URINALYSIS W/O SPECIFIC [id number] 18:32:00 Test Item Value Reference Range Interpretation [...] = 3257) about 250 Negative - Negative [facility] URINALYSIS W/O SPECIFIC [id number] 18:32:00 Test Item Value Reference Range Interpretation [...] = 3257) about 250 Negative - Negative [facility]ysis2020-02-12 20:00:00 Test Item Value Reference Range Interpretation Comments APPEARANCE (test code = Clear Clear 4598920984) COLOR (test code = Straw Yellow A 5052196495) PH (test code = 4.8-8.0 2076913088) SP GRAVITY (test code = 1.003-1.030 3933316712) GLU U QUAL (test code = Normal Normal 9306464478) BLOOD (test code = Negative Negative 8788037463) KETONES (test code = Negative Negative 6656266709) PROTEIN (test code = Negative Negative 2887-8) UROBILIN (test code = Normal Normal 2242571431) BILIRUBIN (test code = Negative Negative 1286290863) NITRITE (test code = Negative Negative 4629314642) LEUK WILBERT (test code = Negative Negative 0908219039) RBC/HPF (test code = See_Comment [Autom ated message] 8901418411) The system Dialogic generated this result transmitted ref erence range: 0 - 3 HP F. The reference range was not used to int erpret this result as normal/abnormal . WBC/HPF (test code = <1 See_Comment [Autom ated message] 0508451285) The system Dialogic generated this result transmitted ref erence range: 0 - 5 HP F. The reference range was not used to int erpret this result as normal/abnormal . BACTERIA (test code = Negative Negative 7528010581) SQ EPITH (test code = HPF 3148220836) Lab Interpretation (test Abnormal code = 65164-2) [facility] - DRUG SCREEN [id number] 19:43:00 Test Item Value Reference Range Interpretation Comments BENZO U (test code = Negative Negative 2442823744) VALERIE U (test code = Negative Negative 3183404895) AMPHET (test code = Negative Negative 1557808405) THC (test code = Negative Negative 5111473699) METHADONE (test code = Negative Negative 5850417470) Meth U (test code = Negative Negative 0597149967) OPIATES (test code = Negative Negative 4170183570) Cocaine Metabolite (test Negative Negative code = 7134584528) PROPOXY (test code = Negative Negative 7551001625) Tric U (test code = Negative Negative 1389556497) PCP (test code = Negative Negative 2538834820) OXYCOD (test code = Negative Negative 7515043867) MARCELLE (test code = MARCELLE) Urine Drug [...] testing). Lab Interpretation (test Normal code = 23428-4) [facility] [id number] 19:21:00 Test Item Value Reference Range Interpretation Comments POCT PREG (test code = 1605) negative On board controls acceptable with present C Line (test code = 3574) POCT PREG LOT # (test code = [id number]) POCT PREG TEST DATE (test code = 3576) Lab Interpretation (test code = Normal 06468-6) [facility] Metabolic [id number] 18:07:00 Test Item Value Reference Range Interpretation Comments NA (test code = 141 mmol/L 135-145 4947146239) K (test code = 4.3 mmol/L 3.5-5 8041175152) CL (test code = 104 mmol/L 98-108 2665466856) CO2 TOTAL (test code = 25 mmol/L 23-31 2860758743) AGAP (test code = 2-16 2382343013) BUN (test code = 13 mg/dL 7-23 7689731071) GLUCOSE (test code = 95 mg/dL 70-110 6786908004) CREATININE (test code = 0.68 mg/dL 0.5-1.04 2648345534) TOTAL BILI (test code = 0.3 mg/dL 0.1-1.8 0576281778) CALCIUM (test code = 10.2 mg/dL 8.6-10.6 3931749438) T PROTEIN (test code = 7.6 g/dL 6.3-8.2 7231186589) ALBUMIN (test code = 5.1 g/dL 3.5-5 H 2528212756) ALK PHOS (test code = 79 U/L 34-122 3175605862) ALTv (test code = 13 U/L 5-35 1742-6) AST(SGOT) (test code = 21 U/L 13-40 2640266715) eGFR Calculation mL/min/1.73m2 (Non-) (test code = 7072680704) eGFR Calculation mL/min/1.73m2 () (test code = 2461278029) MARCELLE (test code = MARCELLE) Association of [...] tests). Lab Interpretation Abnormal (test code = 01279-2) [facility] Hospital[facility], [id number] 18:07:00 Test Item Value Reference Range Interpretation Comments LIPASE (test code = 8938395225) 44 U/L 0-220 Lab Interpretation (test code = Normal 78774-7) [facility] WITH [id number] 17:57:00 Test Item Value Reference Range Interpretation Comments WBC (test code = See_Comment [Automated message] 6690-2) The system Dialogic generated this result transmitted ref erence range: 4.30 - 1 1.10 10*3/?L. The re ference range was not u sed to interpret this result as normal/abnor mal. RBC (test code = See_Comment [Automated message] 749-8) The system Dialogic generated this result transmitted ref erence range: [...] RDW-SD (test code 40.2 fL 39-49.9 = 06073-7) RDW-CV (test code 12.4 % 12-15.5 = 788-0) PLT (test code = See_Comment [Automated message] 777-3) The system Dialogic generated this result transmitted ref erence range: 166 - 35 8 10*3/?L. The re ference range was not u sed to interpret this result as normal/abnor mal. MPV (test code = 10.4 fL 9.5-12.9 88068-3) NRBC/100 WBC (test See_Comment [Automat ed message] code = 1384802211) The [email or web address] which generated this result transmitted ref erence range: 0.0 - 10 .0 /100 WBCs. The refer ence range was not u sed to interpret this result as normal/abnor mal. NRBC x10^3 (test <0.01 See_Comment [Automated message] code = 0386995694) The syste m which generated this result transmitted ref erence range: 10*3/?L. The reference range was not used to interpr et this result as normal/abnormal . GRAN MAT (NEUT) % 62.6 % (test code = 770-8) IMM GRAN % (test 0.60 % code = 4429981573) LYMPH % (test code 27.3 % = 736-9) MONO % (test code 7.2 % = 5905-5) EOS % (test code = 1.9 % 713-8) BASO % (test code 0.4 % = 706-2) GRAN MAT 5.98 10*3/uL 1.88-7.09 x10^3(ANC) (test code = 7966344181) IMM GRAN x10^3 0.06 10*3/uL 0-0.06 (test code = 0899007995) LYMPH x10^3 (test 2.61 10*3/uL 1.32-3.29 code = 731-0) MONO x10^3 (test 0.69 10*3/uL 0.33-0.92 code = 742-7) EOS x10^3 (test 0.18 10*3/uL 0.03-0.39 code = 711-2) BASO x10^3 (test 0.04 10*3/uL 0.01-0.07 code = 704-7) General acute hospital 1/2 AG-AB WITH [id number] 08:33:00 Test Item Value Reference Range Interpretation Comments HIV Negative Negative Semi-quantitative (test code = 92064-0) MARCELLE (test code = Non-reactive for HIV-1 MARCELLE) antigen and HIV-1/HIV-2 antibodies. ?No laboratory evidence of HIV infection. ?Repeat in 2-4 weeks if acute HIV infection is suspected. General acute hospital 1/2 AG-AB WITH [id number] 08:33:00 Test Item Value Reference Range Interpretation Comments HIV Negative Negative Semi-quantitative (test code = 91622-0) MARCELLE (test code = Non-reactive for HIV-1 MARCELLE) antigen and HIV-1/HIV-2 antibodies. ?No laboratory evidence of HIV infection. ?Repeat in 2-4 weeks if acute HIV infection is suspected. [facility]
[2021-02-27 15:42] LABS: SARS-COV-2 RT PCR NEGATIVE (NEGATIVE)
[2021-02-27] MEDS ORDERED: dexAMETHasone 10 MG/ML VIAL ONE (18:19)
--- NOTE | 2021-02-27 18:56 | EDPHYS ---
Physician Documentation [facility] Name: Mile Wang Age: 26 yrs Sex: Female : 1995 Arrival Date: 02/27/2021 Time: 14:36 Bed 13 Private MD: ED Physician Ton Bond HPI: 02/27 14:57 This 26 yrs old Female presents to ER via Ambulatory with complaints of Cough, jmm Shortness Of Breath, Chest Pain. 14:57 Onset: The symptoms/episode began/occurred gradually, 1 day(s) ago. Modifying factors: jmm The symptoms are alleviated by nothing, the symptoms are aggravated by nothing. Associated signs and symptoms: Pertinent positives: earache, fever, sore throat, Pertinent negatives:. It is unknown whether or not the patient has had similar symptoms in the past. 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 - Social history:: Smoking status: Patient denies any tobacco usage or history of. ROS: 14:57 Constitutional: Positive for body aches, chills. jmm 14:57 ENT: Positive for ear pain, sore throat. 14:57 Respiratory: Positive for cough. 14:57 All other systems are negative. Exam: 14:57 Constitutional: This is a well developed, well nourished patient who is awake, alert, jmm and in no acute distress. Head/Face: atraumatic. Eyes: EOMI, no conjunctival erythema appreciated 14:57 Neck: Trachea midline, Supple Chest/axilla: Normal chest wall appearance and motion. Cardiovascular: Regular rate and rhythm. No edema appreciated Respiratory: Normal respirations, no respiratory distress appreciated Abdomen/GI: Non distended, soft Back: Normal ROM Skin: General appearance color normal MS/ Extremity: Moves all extremities, no obvious deformities appreciated, no edema noted to the lower extremities Neuro: Awake and alert, normal gait Psych: Behavior is normal, Mood is normal, Patient is cooperative and pleasant 14:57 ENT: TM's: erythema, that is moderate, bilaterally. Vital Signs: 14:53 BP 133 / 85; Pulse 79; Resp 17; Temp 97.8(TE); Pulse Ox 100% on R/A; tw2 17:33 BP 122 / 72; Pulse 72; Resp 18; Pulse Ox 100% on R/A; ld1 19:28 BP 116 / 76; Pulse 74; Resp 18; Temp 98.9; Pulse Ox 100% on R/A; mk [place] Coma Score: 19:28 Eye Response: spontaneous(4). Verbal Response: oriented(5). Motor Response: obeys mk commands(6). Total: 15. MDM: 18:10 Patient medically screened. [facility] 18:54 Data reviewed: vital signs, nurses notes. [facility] 18:54 Counseling: I had a detailed discussion with the patient and/or guardian regarding: the jmm historical points, exam findings, and any diagnostic results supporting the discharge/admit diagnosis, lab results, the need for outpatient follow up, to return to the emergency department if symptoms worsen or persist or if there are any questions or concerns that arise at home. 02/27 14:51 Order name: COVID-19/FLU A+B (Document "Date of Onset" if Symptomatic); Complete Time: tw2 17:27 Administered Medications: 18:21 Drug: Decadron (dexamethasone) 10 mg Route: IM; Site: right deltoid; ld1 18:22 Follow up: Response: No adverse reaction ld1 Disposition: 02/28 08:14 Co-signature as Attending Physician, Ton Bond MD I agree with the assessment and kdr plan of care. Disposition Summary: 02/27/21 18:55 Discharge Ordered Location: Home jm Condition: Stable jmm Diagnosis - Acute serous otitis media, recurrent, bilateral jmm - Acute upper respiratory infection, unspecified jmm Followup: [facility] - With: Private Physician - When: 2 - 3 days - Reason: Recheck today's complaints, Continuance of care, Re-evaluation by your physician Discharge Instructions: - Discharge Summary Sheet [facility] - Upper Respiratory Infection, Adult [facility] Forms: - Medication Reconciliation Form [facility] - Thank You Letter greg - Antibiotic Education sarah - Prescription Opioid Use [facility] Prescriptions: - cefdinir 300 mg Oral capsule - take 1 capsule by ORAL route every 12 hours for 10 days; 20 capsule; Refills: jmm 0, Product Selection Permitted - albuterol sulfate 90 mcg/actuation Inhalation HFA aerosol inhaler - inhale 2 puff by INHALATION route every 4 hours; 1 Pump; Refills: 0, Product [facility] Selection Permitted Signatures: Dispatcher [employer] Ton Flores MD MD kdr Mickail, Joel, PA PA jmm Wise, Tara RN RN tw2 Nory Holland RN RN ld1
--- NOTE | 2021-02-27 18:56 | ER ---
Nurse's Notes [facility] Name: Mile Wang Age: 26 yrs Sex: Female : 1995 Arrival Date: 02/27/2021 Time: 14:36 Bed 13 Private MD: Diagnosis: Acute serous otitis media, recurrent, bilateral;Acute upper respiratory infection, unspecified Presentation: 02/27 14:49 Chief complaint: Patient states: my head hurts and my ears hurt. i feel like i cant tw2 breathe. i have chills. it started happening yesterday evening. i have a pain deep in my chest. 14:53 Coronavirus screen: chills, congestion, cough unrelated to allergies, difficulty tw2 breathing, fever, runny nose, shortness of breath. Ebola Screen: Patient denies travel to an Ebola-affected area in the 21 days before illness onset. Initial Sepsis Screen: Does the patient meet any 2 criteria? No. Patient's initial sepsis screen is negative. Does the patient have a suspected source of infection? No. Patient's initial sepsis screen is negative. Risk Assessment: Do you want to hurt yourself or someone else? Patient reports no desire to harm self or others. Onset of symptoms was February 27, 2021. 14:53 Acuity: BAIRON 4 tw2 14:53 Method Of Arrival: Ambulatory tw2 Triage Assessment: 14:52 General: Appears in no apparent distress. Behavior is calm, cooperative, appropriate tw2 for age. Pain: Denies pain. EENT: Reports nasal congestion nasal discharge. Respiratory: Reports shortness of breath at rest on exertion cough that is. Respiratory: Onset: The symptoms/episode began/occurred yesterday, the patient has mild shortness of breath. 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 - Social history:: Smoking status: Patient denies any tobacco usage or history of. Screenin:56 Abuse screen: Denies threats or abuse. Nutritional screening: No deficits noted. tw2 Tuberculosis screening: No symptoms or risk factors identified. Fall Risk None identified. Assessment: 14:56 Reassessment: covid/flu swab done in triage. tw2 17:33 Reassessment: Patient appears in no apparent distress at this time. Patient and/or ld1 family updated on plan of care and expected duration. Pain level reassessed. 19:26 Pain: Complains of pain in head and chest Pain currently is 8 out of 10 on a pain mk scale. Quality of pain is described as aching, Pain began gradually, Is lasting more than 1 hour. Cardiovascular: Heart tones S1 S2. Cardiovascular: Capillary refill < 3 seconds Pulses are 2+ in right radial artery, right dorsalis pedis artery, left radial artery and left dorsalis pedis artery Rhythm is regular. Respiratory: Airway is patent Trachea midline Respiratory effort is even, unlabored, Breath sounds are clear. GI: Abdomen is flat, non-distended, Abd is soft and non tender. : No signs and/or symptoms were reported regarding the genitourinary system. Derm: Skin is intact, is healthy with good turgor, Skin is dry, Skin is pink, warm \T\ dry. Skin temperature is warm. Musculoskeletal: Range of motion: intact in all extremities. Vital Signs: 14:53 BP 133 / 85; Pulse 79; Resp 17; Temp 97.8(TE); Pulse Ox 100% on R/A; tw2 17:33 BP 122 / 72; Pulse 72; Resp 18; Pulse Ox 100% on R/A; ld1 19:28 BP 116 / 76; Pulse 74; Resp 18; Temp 98.9; Pulse Ox 100% on R/A; [place] Coma Score: 19:28 Eye Response: spontaneous(4). Verbal Response: oriented(5). Motor Response: obeys mk commands(6). Total: 15. ED Course: 14:36 Patient arrived in ED. ds1 14:52 Arm band placed on. tw2 14:56 Triage completed. tw2 17:01 Benny Pérez PA is PHCP. [facility] 17:01 Ton Bond MD is Attending Physician. [facility] 19:06 Ashtyn Larson, RN is Primary Nurse. 19:28 No provider procedures requiring assistance completed. mk 19:28 Patient did not have IV access during this emergency room visit. mk 19:29 Patient has correct armband on for positive identification. Allergy band placed. Bed in low position. Side rails up X 1. Administered Medications: 18:21 Drug: Decadron (dexamethasone) 10 mg Route: IM; Site: right deltoid; ld1 18:22 Follow up: Response: No adverse reaction ld1 Outcome: 18:55 Discharge ordered by . [facility] 19:28 Discharged to home ambulatory. 19:28 Condition: stable 19:28 Discharge instructions given to patient. 19:29 Patient left the ED. Signatures: Benny Pérez PA PA [facility] Cinthia Gilliland ds1 Linda Bush RN RN tw2 Nory Holland RN RN ld1 Ashtyn Larson, JUAN M MCGOWAN
[2021-02-27 19:51] VITALS: O2SAT 100
[2021-02-27 19:54] VITALS: BP 116/76; TEMP 98.9
== END 2021-02-27 19:29 | disposition home or self-care (01) ==
LOC: ER 14:36
DX: H65.06 Acute serous otitis media, recurrent, bilateral (principal); J06.9 Acute upper respiratory infection, unspecified; Z20.822 Contact with and (suspected) exposure to COVID-19; F31.9 Bipolar disorder, unspecified; Z88.1 Allergy status to other antibiotic agents; Z88.5 Allergy status to narcotic agent; Z88.8 Allergy status to other drugs, medicaments and biological substances
CPT/HCPCS: 0240U; 96372; 99283; J1100

== ENCOUNTER 2021-04-21 14:25 | Emergency (ER) | payer OTHER ==
--- OUTSIDE RECORDS SUMMARY | 2021-04-21 14:29 | XMS REPORT | Continuity of Care Document ---
:[address] [facility] t Address [address] [place] [address] Care Team Providers Name Role Phone Asked, Pcp Primary Care Physician Unavailable TESHA Attending Clinician Unavailable Piyush LANDAVERDE Attending Clinician Unavailable Saima PAC, S Attending Clinician Doctor Unassigned, Name Attending Clinician Unavailable Irma WALLACE C Attending Clinician Regis Pennington MD Attending Clinician REGIS PENNINGTON Attending Clinician Unavailable REGIS PENNINGTON Attending Clinician Unavailable Sandoval GAITAN, N Attending Clinician TESHA Admitting Clinician Unavailable HIEN Admitting Clinician Unavailable Payers Payer Name Policy Type Policy Number Effective Date Expiration Date [facility] [id number] 2017 CHOICE MEDICAID 00:00:00 Advance Directives Directive Decision Effective Termination Comments Source Date Date Healthcare Agents on N/A Univ ersity FileNameRelationshipHealthcare [facility] Agent Medical RelationshipCommunicationHopi Health Care [facility] Branch NeeceMotherHealth Care [phone] (Mobile) Problems Condition Condition Condition Status Onset Resolution Last Treating Co mments Source Name Details Category Date Date Treatment Clinician Date Frequent Frequent Disease Active Unive rs UTI UTI 8-03 ity of 00:00: [address] Branch Seizures Seizures Disease Active Unive rs 7- ity of 00:00: [place] 00 [facility] Branch UTI UTI Disease Active Univers symptoms symptoms 4- ity of 00:00: [place] 00 Medical Branch Other Other Disease Active Univers general general 4- [place] of [place] advice and advice 00 Me dical for for Branch contracept contracept billy billy management management Abnormal Abnormal Disease Active Unive rs EKG EKG 10-08 ity of 00:00: [place] 00 Medical Branch Vaginal Vaginal Disease Active Univers discharge discharge 09-08 ity of 00:00: [place] 00 Medical Branch Chlamydia Chlamydia Disease Active Uni vers 5- ity of 00:00: [place] 00 Medical Branch Bipolar Bipolar Disease Active Univers affective affective 07-15 [place]y of disorder, disorder, 00:[place] [...] Propensi Active Palpitations Univers antoin ty to 10-09 ity of Monohyd/ adverse 00:00: [place] M-Cryst reaction 00 Medical s Branch Lacosami Propensi Active Hives Univer s de ty to 8- ity of adverse 00:00: [place] reaction 00 Medical s Branch NITROFUR DRUG Active Palpitations Un aubree ANTOIN 8- ity of MONOHYD/ 00:00: [place] M-CRYST 00 Medical Branch LACOSAMI DRUG Active Hives Univers DE INGREDI 8- ity of 00:00: [place] 00 Medical Branch LACOSAMI Allergy Active High Hives [facility] NITROFUR Allergy Active Med Anxiety [facility] MONOHYD/ 00:00: Medical M-CRYST 00 Center DOXYCYCL Allergy Active High Hives 2019- [facility]E [facility] - 00:[facility] Medical [facility] Center TRAMADOL Allergy Active Other 2019-[address] [facility] - 00:[facility]: Medical 00 Center Doxycycl Propensi Active Other - See 0 seizures Univers ine ty to comments 2-12 ity of adverse 00:00: [place] reaction 00 Medical s Branch Tramadol Propensi Active Other - See 2019-0 seizures Univers ty to comments 2-12 ity of adverse 00:00: [place] reaction 00 [facility] DOXYCYCL DRUG Active Other-Cmnt 0 Univ ers INE INGREDI 2-12 ity of 00:00: [place] 00 [facility] Branch TRAMADOL DRUG Active Other-Cmnt 0 Univ ers INGREDI 2-12 ity of 00:00: [place] 00 [facility] Social History Social Habit Start Date Stop Date Quantity Comments Source Exposure to Not sure [facility] SARS-CoV-2 (event) [facility] Alcohol intake 2021-04-18 2021-04-18 0 /d [facility] 00:00:00 00:00:00 [facility] Tobacco use and 2015-12-21 2015-12-21 Never used [facility] exposure 00:00:00 00:00:00 [facility] Sex Ass[birth year] At [birth year] [facility] 00:00:00 00:00:00 [facility] Smoking Status Start Date Stop Date Source Never smoker [facility] Medications Ordered Filled Start Stop Current Ordering Indication Dosage Frequency Signature Comments Components Source Medication Medication Date Date Medication? Clinician (SIG) Name Name acetaminoph 2021- No 1{tbl} 1 tablet, Univers en-codeine 2-10 04-18 Oral, ity of (TYLENOL 21:30: 21:30 ONCE, 1 [place] #3) 300-30 00 :00 dose, On Medic al mg tablet 1 [facility] tablet 04/18/21 at 1530, SHAYNA traMADoL Yes 50mg 50 mg, Univers (ULTRAM) 2-10 Oral, ity of tablet 50 20:15: Q6HPRN, [place] mg 11 Starting Medical on [facility] Branch 04/18/21 at 1415, Until Discontinu ed, Routine, Pain (scale 7-10) lamoTRIgine 2021-0 Yes [id number] Take 4 by Univers 25 mg 1-19 mouth BID. ity of disintegrat 00:00: [place] ing tablet 00 Medical Branch lamoTRIgine 2021-0 Yes [id number] Take 4 by Univers 25 mg 1-19 mouth BID. ity of disintegrat 00:00: [place] ing tablet 00 Medical Branch lamoTRIgine 2021-0 Yes [id number] Take 4 by Univers 25 mg 1-19 mouth BID. ity of disintegrat 00:00: [place] ing tablet 00 Medical Branch lamoTRIgine 2021-0 Yes [id number] Take 4 by Univers 25 mg 1-19 mouth BID. ity of disintegrat 00:00: [place] ing tablet 00 Medical Branch lamoTRIgine 2020-03 Yes [id number] Take 4 by Univers 25 mg 0-22 mouth BID. ity of disintegrat 00:00: [place] ing tablet 00 Medical Branch lamoTRIgine 2020-03- No [id number] Take 4 by Univers 25 mg 0-22 01-19 mouth BID. ity of disintegrat 00:00: 00:00 [place] ing tablet 00 :00 [facility] Branch trospium 20 2020-0 Yes [id number] 20mg Take 1 Univers mg tablet 8-26 tablet by ity o f 00:00: mouth 2 [place] [facility] Medical times Branch daily. trospium 20 2020-0 Yes [id number] 20mg Take 1 Univers mg tablet 8-26 tablet by ity o f 00:00: mouth 2 [place] ([facility] Medical times Branch daily. trospium 20 2020-0 Yes [id number] 20mg Take 1 Univers mg tablet 8-26 tablet by ity o f 00:00: mouth 2 [place] ([facility] Medical times Branch daily. trospium 20 2020-0 Yes [id number] 20mg Take 1 Univers mg tablet 8-26 tablet by ity o f 00:00: mouth 2 [place] ([facility] Medical times Branch daily. trospium 20 2020-0 2- No [id number] 20mg Take 1 Univers mg tablet 8-26 02-10 tablet by ity of 00:00: 00:00 mouth 2 [place] 00 :00 [facility] Medical times Branch daily. LITHIUM 2021-0 Yes Take by Univer s CARBONATE 8-03 mouth. ity of ORAL 16:04: [address] busPIRone Yes 10mg Take 10 mg Un aubree 10 mg 8-03 by mouth 2 ity of tablet 16:04: (two) [place] 25 times Medical daily. Branch LITHIUM Yes Take by Univer s CARBONATE 8-03 mouth. ity of ORAL 16:04: [address] busPIRone Yes 10mg Take 10 mg Un aubree 10 mg 8-03 by mouth 2 ity of tablet 16:04: (two) [place] 25 times Medical daily. Branch LITHIUM Yes Take by Univer s CARBONATE 8-03 mouth. ity of ORAL 16:04: [address] busPIRone Yes 10mg Take 10 mg Un aubree 10 mg 8-03 by mouth 2 ity of tablet 16:04: (two) [place] 25 times Medical daily. Branch LITHIUM Yes Take by Univer s CARBONATE 8-03 mouth. ity of ORAL 16:04: [address] busPIRone Yes 10mg Take 10 mg Un aubree 10 mg 8-03 by mouth 2 ity of tablet 16:04: (two) [place] 25 times Medical daily. Branch LITHIUM Yes Take by Univer s CARBONATE 8-03 mouth. ity of ORAL 16:04: [address] busPIRone Yes 10mg Take 10 mg Un aubree 10 mg 8-03 by mouth 2 ity of tablet 16:04: (two) [place] 25 times Medical daily. Branch Immunizations Ordered Filled Immunization Date Status Comments [facility] e Immunization Name Name HPV9 2019-12-30 Completed University of 00:00: [facility] HPV9 2019-12-30 Completed University of 00:00: [facility] HPV9 2019-12-30 Completed University of :00: [facility] HPV9 2019-12-30 Completed University of 00:00: [facility] HPV9 2019-12-30 Completed University of 00:00: [facility] HPV9 2019-09-27 Completed University of 00:00:00 [facility] HPV9 2019-09-27 Completed University of 00:00: [facility] HPV9 2019-09-27 Completed University of 00:00:00 [facility] HPV9 2019-09-27 Completed University of 00:00:00 [facility] HPV9 2019-09-27 Completed University of 00:00:00 [facility] HPV9 2019-05-17 Completed University of 00:00:00 [facility] HPV9 2019-05-17 Completed University of 00:00:00 [facility] HPV9 2019-05-17 Completed University of 00:00:00 [facility] HPV9 2019-05-17 Completed University of 00:00:00 [facility] HPV9 2019-05-17 Completed University of 00:00:00 [facility] TDAP (ADACEL) 2018-02-15 Completed University of VACCINE 00:00:00 [facility] TDAP (ADACEL) 2018-02-15 Completed University of VACCINE 00:00:00 [facility] TDAP (ADACEL) 2018-02-15 Completed University of VACCINE 00:00:00 [facility] TDAP (ADACEL) 2018-02-15 Completed University of VACCINE 00:00:00 [facility] TDAP (ADACEL) 2018-02-15 Completed University of VACCINE 00:00:00 [facility] Influenza Virus 2017-12-14 Completed Universit y of Vaccine Quad IM 3+ 00:00:00 [facility] Influenza Virus 2017-12-14 Completed Universit y of Vaccine Quad IM 3+ 00:00:00 [facility] Influenza Virus 2017-12-14 Completed Universit y of Vaccine Quad IM 3+ 00:00:00 [facility] Influenza Virus 2017-12-14 Completed Universit y of Vaccine Quad IM 3+ 00:00:00 [facility] Influenza Virus 2017-12-14 Completed Universit y of Vaccine Quad IM 3+ 00:00:00 [facility] Varicella 2016-05-24 Completed University of (varivax)(chicken 00:00:00 [place] M edical pox) Branch Varicella 2016-05-24 Completed University of (varivax)(chicken 00:00:00 [place] M edical pox) Branch Varicella 2016-05-24 Completed University of (varivax)(chicken 00:00:00 [place] M edical pox) Branch Varicella 2016-05-24 Completed University of (varivax)(chicken 00:00:00 [place] M edical pox) Branch Varicella 2016-05-24 Completed University of (varivax)(chicken 00:00:00 [facility] edical pox) Branch TDAP 2016-04-03 Completed University of 00:00:00 [facility] TDAP 2016-04-03 Completed University of 00:00:00 [facility] TDAP 2016-04-03 Completed University of 00:00:00 [facility] TDAP 2016-04-03 Completed University of 00:00:00 [facility] TDAP 2016-04-03 Completed University of 00:00:00 [facility] Rho (d) Immune 2016-03-27 Completed University of Globulin 00:00:00 [facility] Rho (d) Immune 2016-03-27 Completed University of Globulin 00:00:00 [facility] Rho (d) Immune 2016-03-27 Completed University of Globulin 00:00:00 [facility] Rho (d) Immune 2016-03-27 Completed University of Globulin 00:00:00 [facility] Rho (d) Immune 2016-03-27 Completed University of Globulin 00:00:00 [facility] Vital Signs Vital Name Observation Time Observation Value Comments Source HEIGHT 2020-09-22 06:00:00 152.4 cm WEIGHT 2020-09-22 06:00:00 80.8 kg HEIGHT 2020-09-21 19:00:00 152.4 cm WEIGHT 2020-09-21 19:00:00 80.786 kg Systolic blood 2021-04-18 18:26:00 144 mm[Hg] Univer sity of pressure [facility] Diastolic blood 2021-04-18 18:26:00 102 mm[Hg] Unive rsity of pressure [facility] Heart rate 2021-04-18 18:26:00 82 /min [facility] Body temperature 2021-04-18 18:26:00 37.22 Shira [facility] Res[facility] rate 2021-04-18 18:26:00 18 /min [facility] Body weight 2021-04-18 18:26:00 86.183 kg [facility] BMI 2021-04-18 18:26:00 32.61 kg/m2 [facility] Oxygen saturation in 2021-04-18 18:26:00 99 /min [facility] Arterial blood by [facility] Pulse oximetry Branch Systolic blood 2021-03-12 21:56:00 113 mm[Hg] Univer sity of pressure [facility] Diastolic blood 2021-03-12 21:56:00 78 mm[Hg] [facility] Heart rate 2021-03-12 21:56:00 74 /min [facility] Body height 2021-03-12 21:56:00 162.6 cm [facility] Body weight 2021-03-12 21:56:00 86.229 kg [facility] BMI 2021-03-12 21:56:00 32.63 kg/m2 [facility] Oxygen saturation in 2021-03-12 21:56:00 98 /min [facility] Arterial blood by [facility] Pulse oximetry Branch HEIGHT 2020-09-22 06:00:00 152.4 cm WEIGHT 2020-09-22 06:00:00 80.8 kg HEIGHT 2020-09-21 19:00:00 152.4 cm WEIGHT 2020-09-21 19:00:00 80.786 kg Procedures Procedure Date / Time Performed Performing Clinician [facility] e US DUPLEX VENOUS ARM 2021-04-18 20:25:00 Bertha Landaverde [facility] RIGHT - BY VASCULAR Medical Bran ch LAB XR FOREARM 2 VW RIGHT 2021-04-18 19:17:00 Bertha Landaverde [facility] NOTICE OF PRIVACY 2021-04-18 18:22:14 Doctor Unassigned, No Univ [facility] Name [facility] CONSENT/REFUSAL FOR 2021-04-18 18:21:27 Doctor Unassigned, [facility] TREATMENT Plan of Care Planned Activity Planned Date Details Comments Source Future Scheduled Test CHLAMYDIA SCREENING [code = CHLAMYDIA SCREENING] Future Scheduled Test COVID-19 VACCINE (1) [code = COVID-19 VACCINE (1)] Future Scheduled Test Hepatitis C screening (procedure) [code = 230474286] Future Scheduled Test Screening for [facility] malignant neoplasm of cervix (procedure) [code = 098305549] Future Scheduled Test INFLUENZA VACCINE [facility] [code = INFLUENZA VACCINE] Encounters Start End Encounter Admission Attending Care Care Encounter Source Date/Time Date/Time Type Type Clinicians Facility Department ID 2020-09-21 Inpatient ER TESHA, [facility] G[facility] [id number] SLE 19:23:00 JOANNE 2021-04-18 2021-04-18 Emergency X SAIMA [facility] ERT [id number] Univers 12:29:00 15:20:00 BERTHA ity of [facility] 2021-04-18 2021-04-18 Emergency Saima [facility] [id number] Univers 12:29:00 15:20:00 Bertha S [place] [id number] i ty of [place] 4[place]2.7.2.686 [place] [id number] [facility] [address] 2021-04-18 2021-04-18 Orders Doctor COLT [id number] Univers 00:00:00 00:00:00 Only Unassigned, STEPHANIA [id number] ity of [place] [facility] 4.2.7.2.686 Dwayne as [id number] [facility] 009 Branch 2021-04-05 2021-04-05 [facility] [id number] Univers 00:00:00 00:00:00 Enedina Estevez STATISTICAL SECRETARY [id number] ity of [facility] 4.2.7.2.686 Dwayne as MATERNAL [id number] Med ical & CHILD 107 [facility] 2021-03-22 2021-03-22 Refill Aditi [facility] [id number] Univers 00:00:00 00:00:00 [facility] [id number] ity of [place] 4.2.7.2.686 Dwayne as WIL?BLEA [id number] [place] anselmo GALLARDO [address] MEDICAL OFFICE BUILDING 2021-03-12 2021-03-12 Office Aditi [facility] [id number] Univers 16:00:00 16:44:59 Visit [facility] 350.1.13.10 ity of [place] 4.2.7.2.686 Dwayne as WIL?BLEA [id number] [address] MEDICAL OFFICE BUILDING 2021-03-12 2021-03-12 Outpatient R PERLITA PENNINGTON [facility] [id number] [facility] 16:00:00 16:44:[address] [facility] 2020-10-15 2020-10-15 Telephone [facility] [id number] 00:00:00 00:00:00 Monique Rabia STATISTICAL SECRETARY [id number] [facility] 4.2.7.2.686 MATERNAL [id number] & CHILD 107 [facility] 2020-10-12 2020-10-12 Telephone [facility] [id number] 00:00:00 00:00:00 Monique N STATISTICAL SECRETARY 350.1.13.10 [facility] 4.2.7.2.686 MATERNAL [id number] & CHILD 107 [facility] 2020-10-11 2020-10-11 Telephone [facility] [id number] 00:00:00 00:00:00 Monique N STATISTICAL SECRETARY [id number] [facility] 4.2.7.2.686 MATERNAL [id number] & CHILD 107 [facility] 2020-10-09 2020-10-09 Office [facility] [id number] 15:44:08 16:29:53 Visit Monique [place] STATISTICAL SECRETARY [id number] [facility] 4.2.7.2.686 MATERNAL [id number] & CHILD 107 [facility] Results Test Description Test Time Test Comments Results Result Comments Source LITHIUM LEVEL 2020-09-24 18:22:00 Test Item Value Reference Range Interpretation Comme nts LITHIUM LEVEL (BEAKER) (test code = 630) 0.8 mmol/L 0.8-1.2 SCAN RESULT (test code = 7955643) See Scanned Report [place], [id number] 14:13:01Reason for exam:->abnormal imaging [facility]OTHMAN : 1995 Sex: FFluoroscopic unit utilized for a procedure performed in the OR. No interpretation was requested. Refer to the operative report for findings. Refer to PACS for patient radiation dose information.COMPREHENSIVE METABOLIC [id number] 06:43:00 Test Item Value Reference Range Interpretation [...] S NOT APPLICABLE FOR DIALYSIS PATIEN TS. [employer] Technician ID - [place] [facility] (HEMOGRAM ONLY)2020-09-24 06:04:00 [...] (BEAKER) (test code = 413) COMPREHENSIVE METABOLIC [id number] 07:06:00 Test Item Value Reference Range Interpretation [...] S NOT APPLICABLE FOR DIALYSIS PATIEN TS. [employer] Technician ID - PIAYA LCBC (HEMOGRAM ONLY)2020-09-23 06:47:00 [...] (BEAKER) (test code = 413) COMPREHENSIVE METABOLIC [id number] 08:27:00 Test Item Value Reference Range Interpretation [...] S NOT APPLICABLE FOR DIALYSIS PATIEN TS. [employer] Technician ID - [place] [id number] 08:27:00 Test Item Value Reference Range Interpretation Comments MAGNESIUM (BEAKER) (test code = 2.4 mg/dL 1.6-2.6 627) [employer] Technician ID - [place] MPROTHROMBIN [id number] 07:59:00 Test Item Value Reference Range Interpretation Comments PROTIME (BEAKER) 13.0 seconds 11.9-14.2 (test code = 759) INR (BEAKER) (test 1.00 See_Comment [Automat ed message] code = 370) The system [employer] generated this result transmitted ref erence range: [...] 0-1 H PERCENT (BEAKER) (test code = 2808)
[2021-04-21] MEDS ORDERED: HYDROCODONE/APAP 5/325 MG TAB ONE (16:31)
--- NOTE | 2021-04-21 17:24 | RAD REPORT ---
EXAM DESCRIPTION: RAD - Forearm Right - 04/21/2021 4:57 pm CLINICAL HISTORY: arm pain COMPARISON: No comparisons FINDINGS: No fracture is identified. There is no dislocation or periosteal reaction noted. No foreign body or other soft tissue abnormality. IMPRESSION: Negative right forearm examination.
--- NOTE | 2021-04-21 17:53 | RAD REPORT ---
EXAM DESCRIPTION: US - Extremity Venous Uni Ltd - 04/21/2021 5:39 pm CLINICAL HISTORY: Right arm pain and swelling COMPARISON: None. TECHNIQUE: Real-time sonographic evaluation of the right upper extremity deep venous systems was per formed. FINDINGS: Normal compressibility, flow augmentation, phasic flow and spontaneous flow are identified in the right upper extremity deep venous system. No intraluminal filling defects seen. Internal jugu lar and subclavian veins are normal as well. IMPRESSION: No DVT in the right upper extremity.
--- NOTE | 2021-04-21 18:30 | EDPHYS ---
Physician Documentation [facility] Name: Mile Wang Age: 26 yrs Sex: Female : 1995 Arrival Date: 04/21/2021 Time: 14:26 Bed 20 Private MD: ED Physician Ton Bond HPI: 04/21 16:10 This 26 yrs old Female presents to ER via Ambulatory with complaints of Arm Pain. jmm 16:10 The patient or guardian complains of pain. Onset: The symptoms/episode began/occurred jmm gradually. 18:28 Treatment prior to arrival includes: over the counter medications. This is a [facility] 26-year-old female with a history of anxiety, bipolar that presents emerged part with complaints of right volar forearm pain. Patient denies known injury. Pain radiates to the mid volar forearm region. Denies fever, shortness of breath. 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 N/A - control method jl7 Historical: - Allergies: 14:52 Doxycycline; jl7 14:52 Macrobid; jl7 14:52 tramadol; jl7 14:52 Vimpat; jl7 - Home Meds: 15:35 buspirone 10 mg Oral tab 1 tab 2 times per day [Active]; Lamictal 100 mg Oral tab 1 tab poole 2 times per day [Active]; lithium carbonate 600 mg Oral cap 1 cap in the morning [Active]; lithium carbonate 900 mg morales Oral cap 1 cap AT NIGHT [Active]; - PMHx: 14:52 Anxiety; Bipolar disorder; Psychogenic Seizures; Seizures; stent in gallbladder; jl7 - PSHx: 14:52 Cholecystectomy; jl7 - Immunization history:: Client reports receiving the 2nd dose of the Covid vaccine. - Social history:: Smoking status: Patient denies any tobacco usage or history of. ROS: 18:28 Constitutional: Negative for fever, chills, and weight loss, Cardiovascular: Negative jmm for chest pain, palpitations, and edema, Respiratory: Negative for shortness of breath, cough, wheezing, and pleuritic chest pain. 18:28 MS/extremity: Positive for pain. 18:28 All other systems are negative. Exam: 18:28 Constitutional: This is a well developed, well nourished patient who is awake, alert, jmm and in no acute distress. Head/Face: atraumatic. Eyes: EOMI, no conjunctival erythema appreciated ENT: Moist Mucus Membranes Neck: Trachea midline, Supple Chest/axilla: Normal chest wall appearance and motion. Cardiovascular: Regular rate and rhythm. No edema appreciated Respiratory: Normal respirations, no respiratory distress appreciated Abdomen/GI: Non distended, soft Back: Normal ROM Skin: General appearance color normal 18:28 Musculoskeletal/extremity: Full range of motion appreciated the right elbow and right wrist, compartments are soft, no erythema or induration appreciated, pain is appreciated on palpation of the volar surface of the forearm, full radial pulse appreciated, full clip riveter strength, neurovascular intact. Vital Signs: 14:51 BP 134 / 70; Pulse 78; Resp 17; Temp 98.3; Pulse Ox 100% ; Weight 81.65 kg; Height 5 jl7 ft. 3 in. (160.02 cm); Pain 8/10; 14:51 Body Mass Index 31.89 (81.65 kg, 160.02 cm) jl7 MDM: 16:10 Patient medically screened. [facility] 18:28 Data reviewed: vital signs, nurses notes. Counseling: I had a detailed discussion with [facility] the patient and/or guardian regarding: the historical points, exam findings, and any diagnostic results supporting the discharge/admit diagnosis, radiology results, the need for outpatient follow up, to return to the emergency department if symptoms worsen or persist or if there are any questions or concerns that arise at home. 04/21 16:11 Order name: Forearm Right XRAY; Complete Time: 17:29 [facility] 04/21 16:11 Order name: US Extremity Venous Unilateral Ltd; Complete Time: 18:01 [facility] Administered Medications: 16:39 Drug: Medanales (HYDROcodone-acetaminophen) 5 mg-325 mg 1 tabs Route: PO; poole Disposition: 19:30 Co-signature as Attending Physician, Ton Bond MD I agree with the assessment and kdr plan of care. Disposition Summary: 04/21/21 18:30 Discharge Ordered Location: Home [facility] Condition: Stable [facility] Diagnosis - Pain in right forearm [facility] Followup: [facility] - With: Cristian Fam MD - When: 2 - 3 days - Reason: Recheck today's complaints, Continuance of care, Re-evaluation by your physician Discharge Instructions: - Discharge Summary Sheet [facility] - Musculoskeletal Pain [facility] Forms: - Medication Reconciliation Form jmm - Thank You Letter jmm - Antibiotic Education jmm - Prescription Opioid Use [facility] Prescriptions: - gabapentin 100 mg Oral capsule - take 3 capsule by ORAL route 3 times per day; 30 capsule; Refills: 0, Product jmm Selection Permitted - Medrol (Neal) 4 mg Oral Tablets, Dose Pack - take 1 tablet by ORAL route as directed - follow package instructions; 1 jmm packet; Refills: 0, Product Selection Permitted Signatures: Dispatcher [employer] Ton Flores MD MD kdr Mickail, Joel, PA PA jmm Leal, Jahala, RN RN jl7 Cindy Chairez RN RN poole
--- NOTE | 2021-04-21 18:30 | ER ---
Nurse's Notes [facility] Name: Mile Wang Age: 26 yrs Sex: Female : 1995 Arrival Date: 04/21/2021 Time: 14:26 Bed 20 Private MD: Diagnosis: Pain in right forearm Presentation: 04/21 14:51 Chief complaint: Patient states: Right arm/AC pain x 3 days. Coronavirus screen: At [facility] this time, the client does not indicate any symptoms associated with coronavirus-19. Ebola Screen: No symptoms or risks identified at this time. Initial Sepsis Screen: Does the patient meet any 2 criteria? No. Patient's initial sepsis screen is negative. Does the patient have a suspected source of infection? No. Patient's initial sepsis screen is negative. Risk Assessment: Do you want to hurt yourself or someone else? Patient reports no desire to harm self or others. Onset of symptoms was April 18, 2021. 14:51 Method Of Arrival: Ambulatory [facility] 14:51 Acuity: BAIRON 4 jl7 Triage Assessment: 14:52 General: Appears in no apparent distress. uncomfortable, Behavior is calm, cooperative, jl7 appropriate for age. Pain: Complains of pain in right antecubital area Pain currently is 8 out of 10 on a pain scale. STOCK TAKER: 14:52 LMP N/A - control method jl7 Historical: - Allergies: 14:52 Doxycycline; jl7 14:52 Macrobid; jl7 14:52 tramadol; jl7 14:52 Vimpat; jl7 - Home Meds: 15:35 buspirone 10 mg Oral tab 1 tab 2 times per day [Active]; Lamictal 100 mg Oral tab 1 tab poole 2 times per day [Active]; lithium carbonate 600 mg Oral cap 1 cap in the morning [Active]; lithium carbonate 900 mg morales Oral cap 1 cap AT NIGHT [Active]; - PMHx: 14:52 Anxiety; Bipolar disorder; Psychogenic Seizures; Seizures; stent in gallbladder; jl7 - PSHx: 14:52 Cholecystectomy; jl7 - Immunization history:: Client reports receiving the 2nd dose of the Covid vaccine. - Social history:: Smoking status: Patient denies any tobacco usage or history of. Screenin:34 Abuse screen: Denies threats or abuse. Denies injuries from another. Nutritional poole screening: No deficits noted. Tuberculosis screening: No symptoms or risk factors identified. Fall Risk None identified. Assessment: 15:34 General: Appears in no apparent distress. Behavior is calm, cooperative. Pain: poole Complains of pain in right arm. Musculoskeletal: Reports pain in right arm Pain is 8 out of 10 on a pain scale. Vital Signs: 14:51 BP 134 / 70; Pulse 78; Resp 17; Temp 98.3; Pulse Ox 100% ; Weight 81.65 kg; Height 5 jl7 ft. 3 in. (160.02 cm); Pain 8/10; 14:51 Body Mass Index 31.89 (81.65 kg, 160.02 cm) jl7 ED Course: 14:26 Patient arrived in ED. mr 14:52 Triage completed. jl7 14:52 Arm band placed on right wrist. jl7 15:34 Patient has correct armband on for positive identification. Bed in low position. poole 15:34 No provider procedures requiring assistance completed. poole 15:39 Benny Pérez PA is PHCP. [facility] 15:39 Ton Bond MD is Attending Physician. jmm 16:57 Forearm Right XRAY In Process Unspecified. EDMS 17:39 US Extremity Venous Unilateral Ltd In Process Unspecified. EDMS 18:30 Cristian Fam MD is Referral Physician. [facility] 18:38 Patient did not have IV access during this emergency room visit. poole Administered Medications: 16:39 Drug: Paron (HYDROcodone-acetaminophen) 5 mg-325 mg 1 tabs Route: PO; poole Outcome: 18:30 [address] ordered [address] . [facility] 18:38 Discharged to home ambulatory. poole 18:38 Condition: good 18:38 Discharge instructions given to patient, Prescriptions given X 2. 18:38 Patient left the ED. poole Signatures: Dispatcher [employer] EDMS Benny Pérez PA PA jmm Rivera, Mary mr Leal, Jahala, RN RN jl7 Cindy Chairez RN RN ha
[2021-04-21 18:55] VITALS: BP 134/70; TEMP 98.3; O2SAT 100
== END 2021-04-21 18:38 | disposition home or self-care (01) ==
LOC: ER 14:25
DX: M79.631 Pain in right forearm (principal); F31.9 Bipolar disorder, unspecified; Z88.1 Allergy status to other antibiotic agents; Z88.5 Allergy status to narcotic agent; Z88.8 Allergy status to other drugs, medicaments and biological substances
CPT/HCPCS: 93971; 99283

== ENCOUNTER 2021-05-15 08:44 | Emergency (ER) | payer OTHER ==
--- OUTSIDE RECORDS SUMMARY | 2021-05-15 08:48 | XMS REPORT | Continuity of Care Document ---
:1995 Author Organization [facility] t Address [address] [place] [address] Care Team Providers Name Role Phone Asked, Pcp Primary Care Physician Unavailable TESHA Attending Clinician Unavailable REGIS ANDERSON Attending Clinician Unavailable REGIS ANDERSON Attending Clinician Unavailable Zamzam MCGOWAN, T Attending Clinician Unavailable BEBETO Attending Clinician Unavailable Bebeto ELASTIC TAPE INSERTER Attending Clinician Leonel TAYLOR, L Attending Clinician Sandoval GAITAN, N Attending Clinician TESHA Admitting Clinician Unavailable HIEN Admitting Clinician Unavailable Payers Payer Name Policy Type Policy Number Effective Date Expiration Date [facility] [id number] 2017 [facility] MEDICA[facility] 00:00:00 Advance Directives Directive Decision Effective Termination Comments Source Date Date Healthcare Agents on N/A Univ ersity FileNameRelationshipHealthcare [facility] Agent Medical RelationshipCommunicationDign[facility] Health [facility] Branch [facility]Mother[facility] Care [phone] (Mobile) Problems Condition Condition Condition Status Onset Resolution Last Treating Co mments Source Name Details Category Date Date Treatment Clinician Date Frequent Frequent Disease Active Unive rs UTI UTI 8-03 ity of 00:00: [address] Seizures Seizures Disease Active Unive rs 7-26 ity of 00:00: [address] Branch UTI UTI Disease Active Univers symptoms [...] disorder, [place] status status [...] NITROFUR DRUG Active Palpitations Un aubree ANTOIN 8-03 ity of [place]D/ 00:00: [place] [facility] 00 [facility] LACOSAMI DRUG Active Hives Univers DE INGREDI 8-03 ity of 00:00: [place] 00 [facility] LACOSAMI Allergy Active High Hives [facility] NITROFUR Allergy Active Med Anxiety [facility] [place]/ 00:00: Medical M-[facility] 00 Center DOXYCYCL Allergy Active High Hives [facility] INE [facility]12 [facility] - 00:[facility]: Medical 00 Center TRAMADOL Allergy Active Other 2019-[address] [facility] - 00:[facility]: Medical 00 Center Doxycycl Propensi Active Other - See 2019-0 seizures Univers ine ty to comments 2-12 ity of adverse 00:00: [place] reaction 00 Medical s Branch Tramadol Propensi Active Other - See 2020-0 seizures Univers ty to comments 2-12 ity of adverse 00:00: [place] reaction 00 Medical s Branch DOXYCYCL DRUG Active Other-Cmnt 2019-0 Univ ers INE INGREDI 2-12 ity of 00:00: [place] 00 Medical Branch TRAMADOL DRUG Active Other-Cmnt 2019-0 Univ ers INGREDI 2-12 ity of 00:00: [place] 00 Medical Branch Social History Social Habit Start Date Stop Date Quantity Comments Source Exposure to Not sure [facility] SARS-CoV-2 (event) Medica l Branch Alcohol intake 2021-04-26 2021-04-26 0 /d [facility] 00:00:00 00:00:00 [facility] Tobacco use and 2015-12-21 2015-12-21 Never used [facility] exposure 00:00:00 00:00:00 [facility] Sex Assigned At [birth year] [facility] 00:00:00 00:00:00 [facility] Smoking Status Start Date Stop Date Source Never smoker [facility] Medications Ordered Filled Start Stop Current Ordering Indication Dosage Frequency Signature Comments Components Source Medication Medication Date Date Medication? Clinician (SIG) Name Name gabapentin Yes 300mg Take 300 Un aubree 100 mg 2-14 mg by ity of capsule 00:00: mouth 3 (three) Medical times [place] daily. methylPREDN Yes TAKE Uni vers ISolone 4 2-14 DIRECTED ity of mg tablets 00:00: [place] PACKAGE [place] [facility] gabapentin 2021- Yes 300mg Take 300 Un aubree 100 mg 2-14 mg by ity of capsule 00:00: mouth 3 [place] (three) Medical times Branch daily. methylPREDN 2021-0 Yes TAKE Uni vers ISolone 4 2-14 DIRECTED ity of mg tablets 00:00: [place] PACKAGE [place] [facility] gabapentin Yes 300mg Take 300 Un aubree 100 mg 2-14 mg by ity of capsule 00:00: mouth 3 [place] 00 (three) Medical times Branch daily. methylPREDN 0 Yes TAKE Uni vers ISolone 4 2-14 DIRECTED ity of mg tablets 00:00: [place] PACKAGE [place] [facility] lamoTRIgine 2021-0 Yes [id number] Take 4 by Univers 25 mg 1-19 mouth BID. ity of disintegrat 00:00: [place] ing tablet 00 Medical Branch lamoTRIgine 2021-0 Yes [id number] Take 4 by Univers 25 mg 1-19 mouth BID. ity of disintegrat 00:00: [place] ing tablet 00 Medical Branch lamoTRIgine 2021-0 Yes [id number] Take 4 by Univers 25 mg 1-19 mouth BID. ity of disintegrat 00:00: [place] ing tablet 00 Medical Branch LITHIUM 2020-0 Yes Take by Univer s CARBONATE 8-03 mouth. ity of ORAL 16:04: [address] busPIRone 0 Yes 10mg Take 10 mg Un aubree 10 mg 8-03 by mouth 2 ity of tablet 16:04: (two) [place] 25 times Medical daily. Branch LITHIUM 0 Yes Take by Univer s CARBONATE 8-03 mouth. ity of ORAL 16:04: [address] busPIRone 0 Yes 10mg Take 10 mg Un aubree 10 mg 8-03 by mouth 2 ity of tablet 16:04: (two) [place] 25 times Medical daily. Branch LITHIUM 0 Yes Take by Univer s CARBONATE 8-03 mouth. ity of ORAL 16:04: [address] busPIRone 0 Yes 10mg Take 10 mg Un aubree 10 mg 8-03 by mouth 2 ity of tablet 16:04: (two) [place] 25 times Medical daily. Branch Immunizations Ordered Filled Immunization Date Status Comments [facility] e Immunization Name Name HPV9 2019-12-30 Completed University of 00:00:00 [facility] HPV9 2019-12-30 Completed University of 00:00:00 [facility] HPV9 2019-12-30 Completed University of 00:00:00 [facility] HPV9 2019-09-27 Completed University of 00:00:00 [facility] HPV9 2019-09-27 Completed University of 00:00:00 [facility] HPV9 2019-09-27 Completed University of 00:00:00 [facility] HPV9 2019-05-17 Completed University of 00:00:00 [facility] HPV9 2019-05-17 Completed University of 00:00:00 [facility] HPV9 2019-05-17 Completed University of 00:00:00 [facility] TDAP (ADACEL) 2018-02-15 Completed University of VACCINE 00:00:00 [facility] TDAP (ADACEL) 2018-02-15 Completed University of VACCINE 00:00:00 [facility] TDAP (ADACEL) 2018-02-15 Completed University of VACCINE 00:00:00 [facility] Influenza Virus 2017-12-14 Completed Universit y of Vaccine Quad IM 3+ 00:00:00 [facility] Influenza Virus 2017-12-14 Completed Universit y of Vaccine Quad IM 3+ 00:00:00 [facility] Influenza Virus 2017-12-14 Completed Universit y of Vaccine Quad IM 3+ 00:00:00 [facility] Varicella 2016-05-24 Completed University of (varivax)(chicken 00:00:00 [facility] edical pox) Branch Varicella 2016-05-24 Completed University of (varivax)(chicken 00:00:00 [facility] edical pox) Branch Varicella 2016-05-24 Completed University of (varivax)(chicken 00:00:00 [facility] edical pox) Branch TDAP 2016-04-03 Completed University of 00:00:00 [facility] [place] [facility] TDAP 2016-04-03 Completed University of 00:00:00 [facility] [place] [facility] TDAP 2016-04-03 Completed University of 00:00:00 [facility] [place] [facility] Rho (d) Immune 2016-03-27 Completed University of Globulin 00:00:00 [facility] [place] [facility] Rho (d) Immune 2016-03-27 Completed University of Globulin 00:00:00 [facility] [place] [facility] Rho (d) Immune 2016-03-27 Completed University of Globulin 00:00:00 [facility] Vital Signs Vital Name Observation Time Observation Value Comments Source HEIGHT 2020-09-22 06:00:00 152.4 cm WEIGHT 2020-09-22 06:00:00 80.8 kg HEIGHT 2020-09-21 19:00:00 152.4 cm WEIGHT 2020-09-21 19:00:00 80.786 kg Systolic blood 2021-04-26 23:26:00 137 mm[Hg] Univer sity of pressure [place] [facility] Diastolic blood 2021-04-26 23:26:00 84 mm[Hg] Unive rsity of pressure [facility] [place] [facility] Heart rate 2021-04-26 23:26:00 81 /min Universi ty of [place] [facility] Body temperature 2021-04-26 23:26:00 36.94 Shira Univ ersity of [place] [facility] Respiratory rate 2021-04-26 23:26:00 16 /min Univ ersity of [place] [facility] Body height 2021-04-26 23:26:00 160 cm Universi ty [facility] [place] [facility] Body weight 2021-04-26 23:26:00 83.915 kg [facility]i ty [facility] [place] [facility] BMI 2021-04-26 23:26:00 32.77 kg/m2 Universi ty of [facility] Oxygen saturation in 2021-04-26 23:26:00 100 /min University of Arterial blood by [place] [employer] tressa Pulse oximetry Branch Systolic blood 2021-04-25 15:44:00 120 mm[Hg] Univer sity of pressure [place] [facility] Diastolic blood 2021-04-25 15:44:00 73 mm[Hg] Unive rsity of pressure [place] [facility] Heart rate 2021-04-25 15:44:00 78 /min Universi ty [facility] [place] [facility] Body height 2021-04-25 15:44:00 160 cm Universi ty [facility] [place] [facility] Body weight 2021-04-25 15:44:00 85.276 kg [facility] [place] [facility] BMI 2021-04-25 15:44:00 33.30 kg/m2 [facility] [place] [facility] Oxygen saturation in 2021-04-25 15:44:00 100 /min University of Arterial blood by [place] Medi tressa Pulse oximetry Branch HEIGHT 2020-09-22 06:00:00 152.4 cm WEIGHT 2020-09-22 06:00:00 80.8 kg HEIGHT 2020-09-21 19:00:00 152.4 cm WEIGHT 2020-09-21 19:00:00 80.786 kg Procedures Procedure Date / Time Performed Performing Clinician Sourc e RAPID INFLUENZA A/B 2021-04-26 23:49:00 Kiarra Arizmendi Univers [facility] CONSENT/REFUSAL FOR 2021-04-26 23:15:53 [facility] AND Name [facility] TREATMENT Plan of Care Planned Activity Planned Date Details Comments Source Future Scheduled Test CHLAMYDIA SCREENING [facility] [code = CHLAMYDIA SCREENING] Future Scheduled Test COVID-19 VACCINE (1) [facility] [code = COVID-19 VACCINE (1)] Future Scheduled Test Hepatitis C screening [facility] (procedure) [code = 555340091] Future Scheduled Test Screening for [facility] malignant neoplasm of cervix (procedure) [code = 126268085] Future Scheduled Test INFLUENZA VACCINE [facility] [code = INFLUENZA VACCINE] Encounters Start End Encounter Admission Attending Care Care Encounter Source Date/Time Date/Time Type Type Clinicians Facility Department ID 2020-09-21 Inpatient ER RIN PARKINSON [facility] [id number] [facility] 19:23:00 JOANNE 2021-05-14 2021-05-14 Outpatient R PERLITA ANDERSON [facility] [id number] Univers 10:40:00 10:40:00 PERLITA ANDERSON [facility] 2021-04-27 2021-04-27 Letter COLT Wyman [id number] Univers 00:00:00 00:00:00 (Out) Vijaya CAT [id number] it [facility] 4.2.7.2.686 [facility] [id number] [facility] [address] [place] 2021-04-26 2021-04-26 [facility] [id number] Univers 17:29:00 19:21:00 KIARRA hammonds [facility] 2021-04-26 2021-04-26 Emergency Arizmendi, [facility] [id number] Univers 17:29:00 19:21:00 Kiarra GUTIERREZ 350.1.13.10 i [facility] 4.2.7.2.686 [facility] [id number] [facility] [address] [place] 2021-04-25 2021-04-25 Office Leonel [facility] [id number] Univers 09:45:00 09:54:55 Visit [facility] [id number] it y of [place] 4.2.7.2.686 Dwayne as WIL?BLEA [id number] [place] an[place]mo GALLARDO [address] [place] [address] MEDICAL OFFICE BUILDING 2020-10-15 2020-10-15 [facility] [id number] 00:00:00 00:00:00 Monique Camarillo SUPERVISOR PIG MACHINE [id number] [facility] [id number] MATERNAL [phone] & CHILD 107 [facility] 2020-10-12 2020-10-12 Telephone [facility] [id number] 00:00:00 00:00:00 Monique Camarillo SUPERVISOR PIG MACHINE [id number] [facility] [id number] MATERNAL [id number] & CHILD 107 [facility] 2020-10-11 2020-10-11 Telephone [facility] [id number] 00:00:00 00:00:00 Monique N SUPERVISOR PIG MACHINE [id number] [facility] [id number] MATERNAL [id number] & CHILD 107 [facility] 2020-10-09 2020-10-09 Office [facility] [id number] 15:44:08 16:29:53 Visit Monique Rabia SUPERVISOR PIG MACHINE [id number] [facility] 4.2.7.2.686 MATERNAL [id number] & CHILD 107 [facility] Results Test Description Test Time Test Comments Results Result Comments Source LITHIUM LEVEL 2020-09-24 18:22:00 Test Item Value Reference Range Interpretation Comme nts LITHIUM LEVEL (BEAKER) (test code = 630) 0.8 mmol/L 0.8-1.2 SCAN RESULT (test code = 1929403) See Scanned Report [place], [id number] 14:13:01Reason for exam:->abnormal imaging [facility] : 1995 Sex: FFluoroscopic unit utilized for a procedure performed in the OR. No interpretation was requested. Refer to the operative report for findings. Refer to PACS for patient radiation dose information.COMPREHENSIVE METABOLIC [id number] 06:43:00 Test Item Value Reference Range Interpretation [...] S NOT APPLICABLE FOR DIALYSIS PATIEN TS. C Programmer ID - MADISON MCBC (HEMOGRAM ONLY)2020-09-24 06:04:00 [...] (BEAKER) (test code = 413) COMPREHENSIVE METABOLIC [id number] 07:06:00 Test Item Value Reference Range Interpretation [...] S NOT APPLICABLE FOR DIALYSIS PATIEN TS. C Programmer ID - PIAYA LCBC (HEMOGRAM ONLY)2020-09-23 06:47:00 [...] (BEAKER) (test code = 413) COMPREHENSIVE METABOLIC [id number] 08:27:00 Test Item Value Reference Range Interpretation [...] S NOT APPLICABLE FOR DIALYSIS PATIEN TS. C Programmer ID - [place] [id number] 08:27:00 Test Item Value Reference Range Interpretation Comments MAGNESIUM (BEAKER) (test code = 2.4 mg/dL 1.6-2.6 627) C Programmer ID - M[place]ISON MPROTHROMBIN [id number] 07:59:00 Test Item Value Reference Range Interpretation Comments PROTIME (BEAKER) 13.0 seconds 11.9-14.2 (test code = 759) INR (BEAKER) (test 1.00 See_Comment [Automat ed message] code = 370) The system [employer] generated this result transmitted ref erence range: [...]
[2021-05-15 09:30] LABS: Lymphocytes % 25.2 % (15.3-44.8); MPV 7.9 fL (7.6-11.3); RBC Red Blood Cell Count 4.81 M/uL (3.86-4.86)
[2021-05-15 09:36] LABS: Protime INR 0.99
[2021-05-15] MEDS ORDERED: ONDANSETRON 4 MG/2 ML VIAL ONE (09:42)
[2021-05-15 09:51] LABS: Barbiturates NEGATIVE (NEGATIVE); Benzodiazepines NEGATIVE (NEGATIVE); Cocaine NEGATIVE (NEGATIVE); METHAMPHETAM NEGATIVE (NEGATIVE); Methadone NEGATIVE (NEGATIVE); Opiates NEGATIVE (NEGATIVE); Phencyclidine NEGATIVE (NEGATIVE); THC Cannibis NEGATIVE (NEGATIVE)
[2021-05-15 09:55] LABS: ALT/SGPT 20 U/L (12-78); AST/SGOT 11 U/L (15-37); Albumin 4.4 g/dL (3.4-5.0); Alkaline Phosphatase 82 U/L (45-117); BUN Blood Urea Nitrogen 3 mg/dL (7-18); Bicarbonate 27 mmol/L (21-32); Bilirubin Total 0.4 mg/dL (0.2-1.0); Glucose Level 87 mg/dL (74-106); Potassium 3.8 mmol/L (3.5-5.1); Protein, Total 7.9 g/dL (6.4-8.2); Sodium Level 140 mmol/L (136-145)
[2021-05-15 09:58] LABS: Bilirubin Direct < 0.1 mg/dL (0-0.2)
--- NOTE | 2021-05-15 11:27 | RAD REPORT ---
EXAM DESCRIPTION: CT - Head Brain Wo Cont - 05/15/2021 11:12 am CLINICAL HISTORY: Alteration of awareness/confusion COMPARISON: None TECHNIQUE: Computed axial tomography of the head was obtained. IV contrast was not requested. All CT scans are performed using dose optimization technique as appropriate and may include automated exposure control or mA/KV adjustment according to patient size. FINDINGS: An intracranial bleed is not seen . The ventricles are normal in caliber. No extra-axial fluid collection is noted. No significant hypodense area is visualized within the brain Fluid within the sinuses/ mastoids is not seen. IMPRESSION: No acute intracranial abnormality is seen. If patient's symptoms persist MRI of the bra in would be recommended.
--- NOTE | 2021-05-15 11:38 | RAD REPORT ---
EXAM DESCRIPTION: Iveth Angio05/15/2021 11:12 am CLINICAL HISTORY: Alteration of consciousness COMPARISON: None TECHNIQUE: 20 cc Isovue 370 was administered intravenously. Patient complained of pain so the inject ion was stopped. A new venous line was inserted and additional 80 cc Isovue 370 administered intraven ously.Opacification of the veins limits examination somewhat CT angiogram of the neck was obtained. 3D MIP reconstruction performed. All CT scans are performed using dose optimization technique as appropriate and may include automated exposure control or mA/KV adjustment according to patient size. FINDINGS: There is opacification of the veins as described above which limits examination somewhat. Visualization of portions of the distal vertebral artery are suboptimal. Otherwise, the common carotid, internal carotid, external carotid and vertebral arteries appear unrem arkable. No dissection. No significant stenosis seen. IMPRESSION: No significant abnormality is displayed The examination is somewhat limited secondary to venous opacification NASCET criteria used. Mild 0-49% stenosis Moderate 50-69% stenosis Severe 70-99% stenosis
--- NOTE | 2021-05-15 11:41 | RAD REPORT ---
EXAM DESCRIPTION: CTHead angio05/15/2021 11:12 am CLINICAL HISTORY: Alteration of consciousness / dizziness COMPARISON: None TECHNIQUE: 20 cc Isovue 370 was administered intravenously. Patient complained of pain so the inject ion was stopped. A new venous line was inserted and additional 80 cc Isovue 370 administered intraven ously. 3D MIP reconstruction performed. Opacification of the veins limits examination somewhat . CT a ngiogram head performed All CT scans are performed using dose optimization technique as appropriate and may include automated exposure control or mA/KV adjustment according to patient size. FINDINGS: The basilar, internal carotid, anterior cerebral, middle cerebral and posterior cerebral a rteries are normal caliber. An aneurysm is not seen. origin left posterior cerebral artery A significant stenosis is not noted. IMPRESSION: No significant abnormality is displayed The examination is somewhat limited secondary to contrast within the veins
[2021-05-15] MEDS ORDERED: DIAZEPAM 10 MG/2 ML INJ SYRINGE ONE (12:00)
--- NOTE | 2021-05-15 13:54 | ER ---
Nurse's Notes [facility] Name: Mile Wang Age: 26 yrs Sex: Female : 1995 Arrival Date: 05/15/2021 Time: 08:49 Bed 16 Private MD: Diagnosis: Dizziness Presentation: 05/15 08:49 Chief complaint: EMS states: EMS describes patient as being confused, AMS. Coronavirus cb5 screen: Client denies travel out of the [place] in the last 14 days. Ebola Screen: Patient negative for fever greater than or equal to 101.5 degrees Fahrenheit, and additional compatible Ebola Virus Disease symptoms Patient denies exposure to infectious person. Initial Sepsis Screen: Does the patient meet any 2 criteria? No. Patient's initial sepsis screen is negative. Risk Assessment: Do you want to hurt yourself or someone else? Patient reports no desire to harm self or others. 08:49 Method Of Arrival: EMS: [facility] cb5 08:49 Acuity: BAIRON 3 cb5 09:11 Initial Sepsis Screen: Does the patient have a suspected source of infection? No. cb5 Patient's initial sepsis screen is negative. Triage Assessment: 08:49 General: Appears in no apparent distress. comfortable, Behavior is calm, cooperative, cb5 quiet. Pain: Denies pain. Historical: - Allergies: 12:00 No Known Allergies; aa5 - PMHx: 09:10 Anxiety; Bipolar disorder; Psychogenic Seizures; Seizures; stent in gallbladder; cb5 - PSHx: 09:10 Cholecystectomy; cb5 - Immunization history:: Adult Immunizations up to date. - Social history:: Smoking status: Patient reports the use of cigarette tobacco products, unknown amount. Screenin:10 Abuse screen: Denies threats or abuse. Denies injuries from another. Nutritional cb5 screening: No deficits noted. Tuberculosis screening: No symptoms or risk factors identified. 09:11 Fall Risk None identified. cb5 Assessment: 08:49 General: Appears in no apparent distress. comfortable, obese, Behavior is calm, cb5 cooperative, appropriate for age, quiet. Pain: Denies pain. Neuro: Level of Consciousness is awake, alert, obeys commands, Oriented to person, place, time, situation, Appropriate for age Reports dizziness, Denies weakness headache. Cardiovascular: No deficits noted. Heart tones S1 S2 Rhythm is sinus rhythm. Respiratory: No deficits noted. Airway is patent Trachea midline Respiratory effort is even, unlabored. GI: No deficits noted. GI: No signs and/or symptoms were reported involving the gastrointestinal system. : No deficits noted. No signs and/or symptoms were reported regarding the genitourinary system. EENT: No deficits noted. Derm: No deficits noted. Musculoskeletal: No deficits noted. 09:42 General: Informed P.A. pt is declining valium at this time. . cb5 10:00 Reassessment: Patient and/or family updated on plan of care and expected duration. Pain cb5 level reassessed. 11:00 General: pt asleep, no distress.. cb5 11:32 Reassessment: Patient and/or family updated on plan of care and expected duration. Pain cb5 level reassessed. 11:32 General: pt asleep no distress, side rails up x2, bed in low position, call light in cb5 reach. 12:00 Reassessment: Patient is alert, oriented x 3, equal unlabored respirations, skin aa5 warm/dry/pink. Pt lying down in bed, c/o anxiety. . 12:10 Reassessment: Patient is alert, oriented x 3, equal unlabored respirations, skin aa5 warm/dry/pink. Patient states feeling better. 12:32 Reassessment: Patient and/or family updated on plan of care and expected duration. Pain cb5 level reassessed. 12:38 Reassessment: provided patient with water. cb5 12:54 General: pt ambulated in hallway with steady gait. cb5 Vital Signs: 08:49 BP 140 / 75; Pulse 85; Resp 16; Temp 99.0(O); Pulse Ox 100% on R/A; em1 08:49 BP 129 / 84; Pulse 80; Resp 16; Temp 98.6; Pulse Ox 99% ; Weight 63.5 kg; Height 5 ft. cb5 6 in. (167.64 cm); Pain 0/10; 12:00 Pulse 85; Resp 18 S; Pulse Ox 100% on R/A; aa5 12:10 Pulse 88; Resp 14 S; Pulse Ox 98% on R/A; aa5 08:49 Body Mass Index 22.60 (63.50 kg, 167.64 cm) cb5 ED Course: 08:49 Patient arrived in ED. em1 08:50 Benny Pérez PA is PHCP. jmm 08:50 Zen Villanueva MD is Attending Physician. jmm 08:50 Arm band placed on left wrist. cb5 08:59 Melissa Osborne, RN is Primary Nurse. cb5 09:08 Triage completed. cb5 09:10 No provider procedures requiring assistance completed. cb5 09:11 Patient has correct armband on for positive identification. Bed in low position. Call cb5 light in reach. Side rails up X 1. 09:24 Acetaminophen Sent. cb5 09:24 Basic Metabolic Panel Sent. cb5 09:25 CBC with Diff Sent. cb5 09:25 ETOH Level Sent. cb5 09:25 Hepatic Function Sent. cb5 09:25 PT-INR Sent. cb5 09:25 Ptt, Activated Sent. cb5 09:25 Salicylate Sent. cb5 09:25 Urine Drug Screen Sent. cb5 11:11 CT Head Brain wo Cont In Process Unspecified. EDMS 11:12 CT Head Angio In Process Unspecified. EDMS 11:12 CT Neck Angio In Process Unspecified. EDMS 13:53 Cristian Fam MD is Referral Physician. jmm 14:29 IV discontinued, intact, bleeding controlled, No redness/swelling at site. ld1 Administered Medications: 09:41 Drug: Zofran (Ondansetron) 4 mg Route: IVP; Site: right antecubital; cb5 12:00 Drug: Valium (diazepam) 5 mg Route: IVP; Site: left antecubital; aa5 12:13 Follow up: Response: No adverse reaction; Anxiety decreased aa5 Outcome: 13:54 Discharge ordered by MD. m 14:29 Discharged to home ambulatory. ld1 14:29 Condition: stable 14:29 Discharge instructions given to patient, Instructed on discharge instructions, follow up and referral plans. medication usage, Demonstrated understanding of instructions, follow-up care, medications. 14:29 Patient left the ED. ld1 Signatures: Dispatcher [employer] EDMS Benny Pérez PA PA jmm Martinez, Eric em1 Marixa Livingston, RN RN aa5 Nory Holland RN RN ld1 Melissa Osborne, RN RN cb5 Corrections: (The following items were deleted from the chart) : Allergies: tramadol [Inactive]; cb5 aa5 : Allergies: Doxycycline [Inactive]; cb5 aa5 Allergies: Vimpat [Inactive]; cb5 aa5 Allergies: Macrobid [Inactive]; cb5 aa5
--- NOTE | 2021-05-15 13:54 | EDPHYS ---
Physician Documentation [facility] Name: Mile Wang Age: 26 yrs Sex: Female : 1995 Arrival Date: 05/15/2021 Time: 08:49 Bed 16 Private MD: Zen Coon HPI: 05/15 13:49 This 26 yrs old Female presents to ER via EMS with complaints of Dizziness. jmm 08:56 The patient presents with dizziness. jmm 08:56 Onset: The symptoms/episode began/occurred acutely, today. Modifying factors: The jmm symptoms are alleviated by nothing, the symptoms are aggravated by movement of head, standing up, changing position. Associated signs and symptoms: Pertinent positives: nausea. The patient has not experienced similar symptoms in the past. Is a 26-year-old female with a history of anxiety, bipolar disorder, psychogenic seizures, the presents emerged department with complaints of acute onset dizziness beginning earlier today. Patient states she recently began taking gabapentin and took her first dose today. Denies weakness.. Historical: - Allergies: 12:00 No Known Allergies; aa5 - PMHx: 09:10 Anxiety; Bipolar disorder; Psychogenic Seizures; Seizures; stent in gallbladder; cb5 - PSHx: 09:10 Cholecystectomy; cb5 - Immunization history:: Adult Immunizations up to date. - Social history:: Smoking status: Patient reports the use of cigarette tobacco products, unknown amount. ROS: 08:56 Constitutional: Negative for fever, chills, and weight loss, Cardiovascular: Negative jmm for chest pain, palpitations, and edema, Respiratory: Negative for shortness of breath, cough, wheezing, and pleuritic chest pain. 08:56 Neuro: Positive for dizziness. 08:56 All other systems are negative. Exam: 08:56 Constitutional: This is a well developed, well nourished patient who is awake, alert, jmm and in no acute distress. Head/Face: atraumatic. 08:56 ENT: Moist Mucus Membranes Neck: Trachea midline, Supple Chest/axilla: Normal chest wall appearance and motion. Cardiovascular: Regular rate and rhythm. No edema appreciated Respiratory: Normal respirations, no respiratory distress appreciated Abdomen/GI: Non distended, soft Back: Normal ROM Skin: General appearance color normal MS/ Extremity: Moves all extremities, no obvious deformities appreciated, no edema noted to the lower extremities Neuro: Awake and alert 08:56 Eyes: Nystagmus: nystagmus with fast component noted, bilaterally. 08:56 Neuro: Orientation: is normal, Mentation: is normal, Memory: is normal, Cranial nerves: Facial palsy and sensory deficits are absent. Cerebellar function: normal finger to nose testing. 08:56 Psych: Behavior/mood is cooperative, anxious. Vital Signs: 08:49 BP 140 / 75; Pulse 85; Resp 16; Temp 99.0(O); Pulse Ox 100% on R/A; em1 08:49 BP 129 / 84; Pulse 80; Resp 16; Temp 98.6; Pulse Ox 99% ; Weight 63.5 kg; Height 5 ft. cb5 6 in. (167.64 cm); Pain 0/10; 12:00 Pulse 85; Resp 18 S; Pulse Ox 100% on R/A; aa5 12:10 Pulse 88; Resp 14 S; Pulse Ox 98% on R/A; aa5 08:49 Body Mass Index 22.60 (63.50 kg, 167.64 cm) cb5 MDM: 08:56 Patient medically screened. sarah 13:52 Data reviewed: vital signs, nurses notes. Counseling: I had a detailed discussion with greg the patient and/or guardian regarding: the historical points, exam findings, and any diagnostic results supporting the discharge/admit diagnosis, lab results, radiology results, the need for outpatient follow up, to return to the emergency department if symptoms worsen or persist or if there are any questions or concerns that arise at home. ED course: Symptoms are alleviated the ED. I do not suspect central cause of vertigo. Patient advised follow-up neurology for further evaluation otherwise given strict return precautions. Patient understood agrees plan of care.. 03 08:58 Order name: Acetaminophen; Complete Time: 10:40 [facility] 05/15 08:58 Order name: Basic Metabolic Panel; Complete Time: 10:40 [facility] 05/15 08:58 Order name: CBC with Diff; Complete Time: 10:40 [facility] 05/15 08:58 Order name: ETOH Level; Complete Time: 10:40 [facility] 05/15 08:58 Order name: Hepatic Function; Complete Time: 10:40 [facility] 05/15 08:58 Order name: PT-INR; Complete Time: 10:40 [facility] 05/15 08:58 Order name: Ptt, Activated; Complete Time: 10:40 [facility] 05/15 08:58 Order name: Salicylate; Complete Time: 10:40 [facility] 05/15 08:58 Order name: Urine Drug Screen; Complete Time: 10:40 [facility] 05/15 08:58 Order name: CT Head Brain wo Cont; Complete Time: 11:39 [facility] 05/15 08:58 Order name: CT Head Angio; Complete Time: 11:44 [facility] 05/15 08:58 Order name: CT Neck Angio; Complete Time: 11:39 [facility] 05/15 09:49 Order name: Urine --Ancillary (enter results); Complete Time: 11:39 05/15 08:58 Order name: EKG; Complete Time: 08:59 [facility] 05/15 08:58 Order name: EKG - Nurse/Tech; Complete Time: 09:12 [facility] 05/15 08:58 Order name: IV Saline Lock; Complete Time: 09:24 [facility] 05/15 08:58 Order name: Labs collected and sent; Complete Time: 09:24 [facility] 05/15 08:58 Order name: Suicide Screening ([place]) [facility] 05/15 08:58 Order name: Urine Dipstick-Ancillary (obtain specimen); Complete Time: 09:25 [facility] Administered Medications: 09:41 Drug: Zofran (Ondansetron) 4 mg Route: IVP; Site: right antecubital; cb5 12:00 Drug: Valium (diazepam) 5 mg Route: IVP; Site: left antecubital; aa5 12:13 Follow up: Response: No adverse reaction; Anxiety decreased aa5 Disposition Summary: 05/15/21 13:54 Discharge Ordered Location: Home [facility] Condition: Stable [facility] Diagnosis - Dizziness [facility] Followup: [facility] - With: Cristian Fam MD - When: 2 - 3 days - Reason: Recheck today's complaints, Continuance of care, Re-evaluation by your physician Discharge Instructions: - Discharge Summary Sheet [facility] - Benign Positional Vertigo [facility] Forms: - Medication Reconciliation Form [facility] - Thank You Letter [facility] - Antibiotic Education [facility] - Prescription Opioid Use [facility] - Work release form as Prescriptions: - ondansetron 4 mg Oral tablet,disintegrating - place 1 tablet by TRANSLINGUAL route every 4-6 hours; 20 tablet; Refills: 0, [facility] Product Selection Permitted - Meclizine 25 mg Oral Tablet - take 1 tablet by ORAL route every 8 hours As needed; 30 tablet; Refills: 0, [facility] Product Selection Permitted Addendum: 05/19/2021 18:19 Co-signature as Attending Physician, Zen Villanueva MD I agree with the assessment and c poole plan of care. Signatures: Dispatcher [employer] Zen Lu MD MD cha Mickail, Joel, PA PA Marixa Conn, RN RN aa5 Melissa Osborne, RN RN cb5 Corrections: (The following items were deleted from the chart) 05/15 12:15 09:12 Allergies: tramadol [Inactive]; cb5 aa5 09:12 Allergies: Doxycycline [Inactive]; cb5 aa5 : 09:12 Allergies: Vimpat [Inactive]; cb5 aa5 :15 09:12 Allergies: Macrobid [Inactive]; cb5 aa5 12:37 11:57 Brain Wo Cont+MRI.RAD.BRZ ordered. [facility]
[2021-05-15 14:59] VITALS: BP 140/75; TEMP 99
[2021-05-15 15:01] VITALS: O2SAT 98
== END 2021-05-15 14:29 | disposition home or self-care (01) ==
LOC: ER 08:44
DX: R42 Dizziness and giddiness (principal); Z72.0 Tobacco use; F31.9 Bipolar disorder, unspecified
CPT/HCPCS: 93005; 85025; 80048; 36415; 80320; 80329 ×2; 81025; 85610; 80076; 85730; 80307; 70450; 70496; 70498; 99284; Q9967; J3360; J2405

== ENCOUNTER 2021-08-20 19:32 | Emergency (ER) | payer OTHER ==
--- OUTSIDE RECORDS SUMMARY | 2021-08-20 19:35 | XMS REPORT | Continuity of Care Document ---
:1995 Author Organization [facility] t Address [address] [place] [address] Care Team Providers Name Role Phone Asked, Pcp Primary Care Physician Unavailable TESHA Attending Clinician Unavailable 1, Us Room Attending Clinician Unavailable Polina TAYLOR M Attending Clinician Irma WHCNP, C Attending Clinician Sandoval JAVA TECH LEAD, N Attending Clinician TESHA Admitting Clinician Unavailable HIEN Admitting Clinician Unavailable Payers Payer Name Policy Type Policy Number Effective Date Expiration Date S ource Problems Condition Condition Condition Status Onset Resolution Last Treating Co mments Source Name Details Category Date Date Treatment Clinician Date Atypical Atypical Disease Active Overview: Un aubree squamous squamous - Formattin ity of cells of cells of 00:00: g of this [place] as undetermin undetermin 00 note Me dical ed ed might be Branch significan significan different ce (ASCUS) ce (ASCUS) from the on on original. Papanicola Papanicola Repeat ou smear ou smear pap in of cervix of cervix 1yr 07/2022 Supervisio Supervisio Disease Active U nivers n of n of 5-05 ity of high-risk high-risk 00:00: Gilma s 00 Medi tressa Branch History of History of Disease Active Overview : Univers anxiety anxiety -05 Formattin ity o f 00:00: g of this [place] 00 note Medical might be Branch different from the original. Reports on buspirone Multiparit Multiparit Disease Active U nivers y y 5- ity of 00:00: Medical Branch Obesity in Obesity in Disease Active U nivers 07-11 ity of 00:00: Medical Branch Frequent Frequent Disease Active Unive rs UTI UTI 10-09 ity of 00:00: Medical Branch Seizure Seizure Disease Active Overview: Univ ers disorder disorder 10-01 Formattin ity of in in 00:00: g of this [place] 00 note Medi tressa might be Branch different from the original. Last episode 2 months ago , not on meds UTI UTI Disease Active Univers symptoms symptoms 06-07 ity of 00:00: Medical Branch Abnormal Abnormal Disease Active Unive rs EKG EKG 10-08 ity of 00:00: [place] [facility] Vaginal Vaginal Disease Active Univers discharge discharge 09-08 ity of 00:00: [place] [facility] Chlamydia Chlamydia Disease Active Uni vers 5 ity of 00:00: Medical Branch Bipolar Bipolar Disease Active Overview: Univ ers disease in disease in 07-15 Formatt[place] ity of 00:00: g of this [place] note Medical might be Branch different from the original. D/c lithium 3 weeks ago Seizure Seizure Disease Active 2015-03 Overview: Univ ers disorder disorder 2- Formattin ity of 00:00: g of this note Medical might be Branch different from the original. Epilepsy x's 2 years. Had genetic counselin g 01/18/16 [place] [facility]see external records-p age 20-21 Allergies, Adverse Reactions, Alerts Allergy Allergy Status Severity Reaction(s) Onset Inactive Treating Comm ents Source Name Type Date Date Clinician Nitrofur Propensi Active Palpitations Univers antoin ty to 10-09 ity of Monohyd/ adverse 00:00: [place] M-Cryst reaction 00 Medical s Branch Lacosami Propensi Active Hives Univer s de ty to 10-09 ity of adverse 00:00: [place] reaction 00 Medical s Branch LACOSAMI Allergy Active [facility] NITROFUR Allergy Active Med Anxiety [facility] MONOHYD/ 00:00: Medical M-CRYST 00 Center DOXYCYCL Allergy Active High Hives [facility]E [facility] TRAMADOL Allergy [facility] Doxycycl Propensi Active Other - See seizures Univers ine ty to comments 2-12 ity of adverse 00:00: [place] reaction 00 Medical s Branch Tramadol Propensi Active Other - See seizures Univers ty to comments 2-12 ity of adverse 00:00: [place] reaction 00 [facility] [place] Social History Social Habit Start Date Stop Date Quantity Comments Source ASSERTION 2021-06-06 [facility] 00:00:00 [facility] Exposure to 2021-08-09 2021-08-19 Not sure [facility] SARS-CoV-2 (event) 00:00:00 14:53:00 Medica l Branch Alcohol intake 2021-08-08 2021-08-08 0 /d [facility] 00:00:00 00:00:00 [facility] Tobacco use and 2015-12-21 2015-12-21 Never used [facility] exposure 00:00:00 00:00:00 [facility] Sex Ass[birth year] At [birth year] [facility] 00:00:00 00:00:00 [facility] Branch Smoking Status Start Date Stop Date Source Never smoker [facility] Medications Ordered Filled Start Stop Current Ordering Indication Dosage Frequency Signature Comments Components Source Medication Medication Date Date Medication? Clinician (SIG) Name Name busPIRone Yes [id number] 18.75mg Take 2.5 Univers 7.5 mg 5-12 tablets by ity of tablet 00:00: mouth 3 (three) Medical times Branch daily. busPIRone Yes [id number] 18.75mg Take 2.5 Univers 7.5 mg 5-12 tablets by ity of tablet 00:00: mouth 3 00 (three) Medical times Branch daily. lamoTRIgine 2021- Yes [id number] Take 1 Univers 25 mg 5-12 07-10 tablet by ity of tablet 00:00: 04:59 mouth [place] 00 :00 daily for Medical 7 days, Branch THEN 1 tablet 2 (two) times daily for 7 days, THEN 2 tablets every morning for 7 days, THEN 2 tablets 2 (two) times daily for 7 days, THEN 4 tablets 2 (two) times daily for 30 days. lamoTRIgine 202- Yes [id number] Take 1 Univers 25 mg 5-12 07-10 tablet by ity of tablet 00:00: 04:59 mouth [place] 00 :00 daily for Medical 7 days, Branch THEN 1 tablet 2 (two) times daily for 7 days, THEN 2 tablets every morning for 7 days, THEN 2 tablets 2 (two) times daily for 7 days, THEN 4 tablets 2 (two) times daily for 30 days. Yes [id number] 1{tbl} Take 1 U nivers multivitami 5-05 tablet by ity of n ( 00:00: mouth [place] VITAMIN) 00 daily. Medical [facility] Yes [id number] 1{tbl} Take 1 U nivers multivitami 5-05 tablet by ity of n ( 00:00: mouth [place] VITAMIN) 00 daily. [facility] Immunizations Ordered Filled Immunization Date Status Comments [facility] e Immunization Name Name HPV9 2019-12-30 Completed University of 00:00:00 [facility] HPV9 2019-12-30 Completed University of 00:00:00 [facility] HPV9 2019-09-27 Completed University of 00:00:00 [facility] HPV9 2019-09-27 Completed University of 00:00:00 [facility] HPV9 2019-05-17 Completed University of 00:00:00 [facility] HPV9 2019-05-17 Completed University of 00:00:00 [facility] TDAP (ADACEL) 2018-02-15 Completed University of VACCINE 00:00:00 [facility] TDAP (ADACEL) 2018-02-15 Completed University of VACCINE 00:00:00 [facility] Influenza Virus 2017-12-14 Completed Universit y of Vaccine Quad IM 3+ 00:00:00 [facility] Influenza Virus 2017-12-14 Completed Universit y of Vaccine Quad IM 3+ 00:00:00 [facility] Varicella 2016-05-24 Completed University of (varivax)(chicken 00:00:00 [facility] edical pox) Branch Varicella 2016-05-24 Completed University of (varivax)(chicken 00:00:00 [facility] edical pox) Branch TDAP 2016-04-03 Completed University of 00:00:00 [facility] TDAP 2016-04-03 Completed University of 00:00:00 [facility] Rho (d) Immune 2016-03-27 Completed University of Globulin 00:00:00 [facility] Rho (d) Immune 2016-03-27 Completed University of Globulin 00:00:00 [facility] Vital Signs Vital Name Observation Time Observation Value Comments Source HEIGHT 2020-09-22 06:00:00 152.4 cm WEIGHT 2020-09-22 06:00:00 80.8 kg HEIGHT 2020-09-21 19:00:00 152.4 cm WEIGHT 2020-09-21 19:00:00 80.786 kg HEIGHT 2020-09-22 06:00:00 152.4 cm WEIGHT 2020-09-22 06:00:00 80.8 kg HEIGHT 2020-09-21 19:00:00 152.4 cm WEIGHT 2020-09-21 19:00:00 80.786 kg Procedures Procedure Date / Time Performed Performing Clinician Sour e FIRST TRIMESTER 2021-08-19 19:38:00 Enedina Solis [facility] Plan of Care Planned Activity Planned Date Details Comments Source Future Scheduled Test CHLAMYDIA SCREENING [facility] [code = CHLAMYDIA SCREENING] Future Scheduled Test COVID-19 VACCINE (1) [facility] [code = COVID-19 VACCINE (1)] Future Scheduled Test Hepatitis C screening [facility] (procedure) [code = 981562079] Future Scheduled Test Screening for [facility] malignant neoplasm of cervix (procedure) [code = 786446902] Future Scheduled Test INFLUENZA VACCINE [facility] [code = INFLUENZA VACCINE] Encounters Start End Encounter Admission Attending Care Care Encounter Source Date/Time Date/Time Type Type Clinicians Facility Department ID 2020-09-21 Inpatient ER RIN PARKINSON Gastro [id number] SLE 19:23:00 JOANNE 2021-08-19 2021-08-19 Agricultural Engineering Teacher 1Urbano Room [facility] 1.2. [id number] Univers 14:15:00 14:51:59 Visit Luke Fish VENEER PULLER [id number] ity of [facility] [id number] Dwayne as MATERNAL [id number] Med ical & CHILD [address] [facility] 2021-08-19 2021-08-19 [facility] [id number] Univers 00:00:00 00:00:00 Enedina Herb [facility] PULLER [id number] ity of [facility] [id number] Dwayne as MATERNAL [id number] Med ical & CHILD [address] [place] [address] 2020-10-15 2020-10-15 Telephone [facility] [id number] 00:00:00 00:00:00 Monique Camarillo VENEER PULLER [id number] [facility] [id number] MATERNAL [id number] & CHILD 107 [facility] 2020-10-12 2020-10-12 Telephone [facility] [id number] 00:00:00 00:00:00 Monique N VENEER PULLER [id number] REGIONAL [id number] MATERNAL [id number] & CHILD 107 [facility] 2020-10-11 2020-10-11 Telephone [facility] [id number] 00:00:00 00:00:00 Monique N VENEER PULLER [id number] [facility] [id number] MATERNAL [id number] & CHILD 107 [facility] 2020-10-09 2020-10-09 Office [facility] [id number] 15:44:08 16:29:53 Visit Monique N VENEER PULLER [id number] [facility] [id number] MATERNAL [id number] & CHILD 107 [facility] Results Test Description Test Time Test Comments Results Result Comments Source LITHIUM LEVEL 2020-09-24 18:22:00 Test Item Value Reference Range Interpretation Comme nts LITHIUM LEVEL (BEAKER) (test code = 630) 0.8 mmol/L 0.8-1.2 SCAN RESULT (test code = 2592340) See Scanned Report [place], [id number] 14:13:01Reason for exam:->abnormal imaging [facility] : 1995 Sex: FFluoroscopic unit utilized for a procedure performed in the OR. No interpretation was requested. Refer to the operative report for findings. Refer to PACS for patient radiation dose information.COMPREHENSIVE METABOLIC [id number] 06:43:00 Test Item Value Reference Range Interpretation [...] S NOT APPLICABLE FOR DIALYSIS PATIEN TS. Mulling Machine Operator ID - MADISON [facility]BC (HEMOGRAM ONLY)2020-09-24 06:04:00 [...] (BEAKER) (test code = 413) COMPREHENSIVE METABOLIC [id number] 07:06:00 Test Item Value Reference Range Interpretation [...] S NOT APPLICABLE FOR DIALYSIS PATIEN TS. Mulling Machine Operator ID - PIAYA LCBC (HEMOGRAM ONLY)2020-09-23 [...] (BEAKER) (test code = 413) COMPREHENSIVE METABOLIC [id number] 08:27:00 Test Item Value Reference Range Interpretation [...] S NOT APPLICABLE FOR DIALYSIS PATIEN TS. Mulling Machine Operator ID - M[place]ISON [id number] 08:27:00 Test Item Value Reference Range Interpretation Comments MAGNESIUM (BEAKER) (test code = 2.4 mg/dL 1.6-2.6 627) Mulling Machine Operator ID - MADISON MPROTHROMBIN [id number] 07:59:00 Test Item Value Reference Range Interpretation Comments PROTIME (BEAKER) 13.0 seconds 11.9-14.2 (test code = 759) INR (BEAKER) (test 1.00 See_Comment [Automat ed message] code = 370) The system The Kernel generated this result transmitted ref erence range: [...] 0-1 H PERCENT (BEAKER) (test code = 0141)
--- NOTE | 2021-08-20 21:11 | ER ---
Nurse's Notes [facility] Name: Mile Wang Age: 26 yrs Sex: Female : 1995 Arrival Date: 08/20/2021 Time: 19:35 Bed Waiting Private MD: Diagnosis: Presentation: 08/20 20:09 Chief complaint: Patient states: I was sent home from work today because I had high ld1 blood pressure, nausea and vomiting. Upon arrival to ER pt BP 114/86. Denies nausea/vomiting. Coronavirus screen: At this time, the client does not indicate any symptoms associated with coronavirus-19. Ebola Screen: No symptoms or risks identified at this time. Initial Sepsis Screen: Does the patient meet any 2 criteria? No. Patient's initial sepsis screen is negative. Does the patient have a suspected source of infection? No. Patient's initial sepsis screen is negative. Risk Assessment: Do you want to hurt yourself or someone else? Patient reports no desire to harm self or others. Onset of symptoms was August 20, 2021 at 20:10. 20:09 Method Of Arrival: Ambulatory ld1 20:09 Acuity: BAIRON 4 ld1 Triage Assessment: 20:10 General: Appears in no apparent distress. comfortable, Behavior is calm, cooperative, ld1 appropriate for age. Pain: Complains of pain in face Pain does not radiate. Pain currently is 6 out of 10 on a pain scale. EENT: No signs and/or symptoms were reported regarding the EENT system. Neuro: Level of Consciousness is awake, alert, obeys commands, Oriented to person, place, time, situation. Cardiovascular: Capillary refill < 3 seconds Patient's skin is warm and dry. Respiratory: Airway is patent Respiratory effort is even, unlabored. GI: Abdomen is flat, non-distended, Reports nausea. : No signs and/or symptoms were reported regarding the genitourinary system. Derm: No signs and/or symptoms reported regarding the dermatologic system. Musculoskeletal: No signs and/or symptoms reported regarding the musculoskeletal system. 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 - Social history:: Smoking status: Patient denies any tobacco usage or history of. Patient/guardian denies using alcohol, street drugs. Vital Signs: 20:09 BP 114 / 86; Pulse 77; Resp 18; Temp 97.5(TE); Pulse Ox 97% on R/A; Weight 86.18 kg; ld1 Height 5 ft. 3 in. (160.02 cm); Pain 6/10; 20:09 Body Mass Index 33.66 (86.18 kg, 160.02 cm) ld1 ED Course: 19:35 Patient arrived in ED. ja2 20:10 Triage completed. ld1 20:10 Arm band placed on right wrist. ld1 20:25 Zen Pierre PA is PHCP. cp 20:25 Zen Villanueva MD is Attending Physician. cp Administered Medications: No medications were administered Outcome: 21:10 Patient left the ED. ld1 Signatures: Zen Pierre PA PA cp Nory Holland, RN RN ld1 Nia Santos2
[2021-08-20 21:48] VITALS: BP 114/86; TEMP 97.5; O2SAT 97
== END 2021-08-20 21:10 | disposition left against medical advice (07) ==
LOC: ER 19:32
DX: Z02.9 Encounter for administrative examinations, unspecified (principal)
CPT/HCPCS: 99281

== ENCOUNTER 2021-08-24 07:02 | Emergency (ER) | payer OTHER ==
--- OUTSIDE RECORDS SUMMARY | 2021-08-24 07:05 | XMS REPORT | Continuity of Care Document ---
:1995 Author Organization [facility] t Address [address] [place] [address] Care Team Providers Name Role Phone Asked, Pcp Primary Care Physician Unavailable TESHA Attending Clinician Unavailable 1, Us Room Attending Clinician Unavailable Polina TAYLOR M Attending Clinician Irma FUENTESCNP, C Attending Clinician Sandoval VACUUM CLEANER REPAIRER, N Attending Clinician TESHA Admitting Clinician Unavailable HIEN Admitting Clinician Unavailable Payers Payer Name Policy Type Policy Number Effective Date Expiration Date S ource Problems Condition Condition Condition Status Onset Resolution Last Treating Co mments Source Name Details Category Date Date Treatment Clinician Date Atypical Atypical Disease Active Overview: Un aubree squamous squamous 5-19 Formattin ity of cells of cells of 00:00: g of this [place] as undetermin undetermin 00 note Me dical ed ed might be Branch significan significan different ce (ASCUS) ce (ASCUS) from the on on original. Papanicola Papanicola Repeat ou smear ou smear pap in of cervix of cervix 07/2022 Supervisio Supervisio Disease Active U nivers n of n of 5-05 ity of high[place]risk [place] Branch History of History of Disease Active Overview : Univers anxiety anxiety 5-05 Formattin ity o f 00:00: g of this [place] 00 note Medical might be Branch different from the original. Reports on buspirone Multiparit Multiparit Disease Active U nivers y y 5- ity of 00:00: Medical Branch Obesity in Obesity in Disease Active U nivers - ity of 00:00: Medical Branch Frequent Frequent Disease Active Unive rs UTI UTI 10-09 ity of 00:00: Medical Branch Seizure Seizure Disease Active Overview: Univ ers disorder disorder 10-01 Formattin ity of in in 00:00: g of this [place] 00 note Medi tressa might be Branch different from the original. Last episode 2 months ago , not on meds UTI UTI Disease Active Univers symptoms symptoms 4- ity of 00:00: Medical Branch Abnormal Abnormal Disease Active Unive rs EKG EKG 10-08 ity of 00:00: [place] [facility] Vaginal Vaginal Disease Active Univers discharge discharge 09-08 ity of 00:00: [place] [facility] Chlamydia Chlamydia Disease Active Uni [...] Formattin ity of 00:00: g of this [place] note Medical might be Branch different from [...] 00:00: [place] reaction 00 Medical s Branch Social History Social Habit Start Date Stop Date Quantity Comments Source ASSERTION 2021-06-06 [facility] 00:00:00 [facility] Branch Exposure to 2021-08-09 2021-08-19 Not sure [facility] SARS-CoV-2 (event) 00:00:00 14:53:00 Medica l Branch Alcohol intake 2021-08-08 2021-08-08 0 /d [facility] 00:00:00 00:00:00 [facility] Tobacco use and 2015-12-21 2015-12-21 Never used [facility] exposure 00:00:00 00:00:00 [facility] Branch Sex Ass[birth year] At [birth year] [facility] 00:00:00 00:00:00 Medical Branch Smoking Status Start Date Stop Date Source Never smoker [facility] Branch Medications Ordered Filled Start Stop Current Ordering Indication Dosage Frequency Signature Comments Components Source Medication Medication Date Date Medication? Clinician (SIG) Name Name busPIRone Yes [id number] 18.75mg Take 2.5 Univers 7.5 mg 5-12 tablets by ity of tablet 00:00: mouth 3 00 (three) Medical times Branch daily. busPIRone Yes [id number] 18.75mg Take 2.5 Univers 7.5 mg 5-12 tablets by ity of tablet 00:00: mouth 3 00 (three) Medical times Branch daily. lamoTRIgine 2021- Yes [id number] Take 1 Univers 25 mg 5-12 07-10 tablet by ity of tablet 00:00: 04:59 mouth [place] 00 :00 daily for Medical 7 days, Branch THEN 1 tablet 2 (two) times daily for 7 days, THEN 2 tablets every morning for 7 days, THEN 2 tablets 2 (two) times daily for 7 days, THEN 4 tablets 2 (two) times daily for 30 days. lamoTRIgine 2021- Yes [id number] Take 1 Univers 25 mg 5-12 07-10 tablet by ity of tablet 00:00: 04:59 mouth [place] 00 :00 daily for Medical 7 days, Branch THEN 1 tablet 2 (two) times daily for 7 days, THEN 2 tablets every morning for 7 days, THEN 2 tablets 2 (two) times daily for 7 days, THEN 4 tablets 2 (two) times daily for 30 days. Yes [id number] 1{tbl} Take 1 U nivers multivitami 5-05 tablet by ity of n ( 00:00: mouth [place] VITAMIN) 00 daily. Medical [facility] Branch Yes [id number] 1{tbl} Take 1 U nivers multivitami 5-05 tablet by ity of n ( 00:00: mouth [place] VITAMIN) 00 daily. [facility] Immunizations Ordered Filled Immunization Date Status Comments [facility] e Immunization Name Name HPV9 2019-12-30 Completed University of 00:00:00 [facility] HPV9 2019-12-30 Completed University of 00:00:00 [facility] HPV9 2019-09-27 Completed University of 00:00:00 [facility] HPV9 2019-09-27 Completed University of 00:00:00 [facility] HPV9 2019-05-17 Completed University of 00:00:00 [facility] HPV9 2019-05-17 Completed University of 00:00:00 [facility] TDAP (ADACEL) 2018-02-15 Completed University of VACCINE 00:00:00 [facility] TDAP (ADACEL) 2018-02-15 Completed University of VACCINE 00:00:00 [facility] Influenza Virus 2017-12-14 Completed Universit y of Vaccine Quad IM 3+ 00:00:00 [facility] Influenza Virus 2017-12-14 Completed Universit y of Vaccine Quad IM 3+ 00:00:00 [facility] Varicella 2016-05-24 Completed University of (varivax)(chicken 00:00:00 [facility] edical pox) Branch Varicella 2016-05-24 Completed University of (varivax)(chicken 00:00:00 [facility] edical pox) Branch TDAP 2016-04-03 Completed University of 00:00:00 [facility] TDAP 2016-04-03 Completed University of 00:00:00 [facility] Rho (d) Immune 2016-03-27 Completed University of Globulin 00:00:00 [facility] Rho (d) Immune 2016-03-27 Completed University of Globulin 00:00:00 [facility] Vital Signs Vital Name Observation Time Observation Value Comments Source HEIGHT 2020-09-22 06:00:00 152.4 cm WEIGHT 2020-09-22 06:00:00 80.8 kg HEIGHT 2020-09-21 19:00:00 152.4 cm WEIGHT 2020-09-21 19:00:00 80.786 kg HEIGHT 2020-09-22 06:00:00 152.4 cm WEIGHT 2020-09-22 06:00:00 80.8 kg HEIGHT 2020-09-21 19:00:00 152.4 cm WEIGHT 2020-09-21 19:00:00 80.786 kg Procedures Procedure Date / Time Performed Performing Clinician Deisi e FIRST TRIMESTER 2021-08-19 19:38:00 Enedina Solis [facility] Plan of Care Planned Activity Planned Date Details Comments Source Future Scheduled Test Hepatitis C screening [facility] (procedure) [code = 533473531] Future Scheduled Test Screening for [facility] malignant neoplasm of cervix (procedure) [code = 530080507] Future Scheduled Test INFLUENZA VACCINE [facility] [code = INFLUENZA VACCINE] Future Scheduled Test CHLAMYDIA SCREENING [facility] [code = CHLAMYDIA SCREENING] Future Scheduled Test COVID-19 VACCINE (1) [facility] [code = COVID-19 VACCINE (1)] Encounters Start End Encounter Admission Attending Care Care Encounter Source Date/Time Date/Time Type Type Clinicians Facility Department ID 2020-09-21 Inpatient ER RIN PARKINSON Gastro [id number] SLE 19:23:00 JOANNE 2021-08-19 2021-08-19 Medical Sales 1Urbano Room [facility] [id number]. [id number] [facility] 14:15:00 14:51:59 Visit Luke Fish FINANCIAL ASSISTANT [id number] ity [facility] [id number] Dwayne as MATERNAL [id number] Med ical & CHILD [address] [facility] 2021-08-19 2021-08-19 [facility] [id number] Univers 00:00:00 00:00:00 Enedina C FINANCIAL ASSISTANT [id number] ity [facility] [id number] Dwayne as MATERNAL [id number] [facility] ical & CHILD [address] [place] [address] 2020-10-15 2020-10-15 Telephone [facility] [id number] 00:00:00 00:00:00 Monique N FINANCIAL ASSISTANT [id number] [facility] [id number] MATERNAL [id number] & CHILD [address] [facility] 2020-10-12 2020-10-12 Telephone [facility] [id number] 00:00:00 00:00:00 Monique N FINANCIAL ASSISTANT [id number] [facility] [id number] MATERNAL [id number] & CHILD 107 [facility] 2020-10-11 2020-10-11 Telephone [facility] [id number] 00:00:00 00:00:00 Monique N FINANCIAL ASSISTANT [id number] [facility] [id number] MATERNAL [id number] & CHILD 107 [facility] 2020-10-09 2020-10-09 Office [facility] [id number] 15:44:08 16:29:53 Visit Monique N FINANCIAL ASSISTANT [id number] [facility] [id number] MATERNAL [id number] & CHILD 107 [facility] Results Test Description Test Time Test Comments Results Result Comments Source LITHIUM LEVEL 2020-09-24 18:22:00 Test Item Value Reference Range Interpretation Comme nts LITHIUM LEVEL (BEAKER) (test code = 630) 0.8 mmol/L 0.8-1.2 SCAN RESULT (test code = 9270316) See Scanned Report KATIE, [id number] 14:13:01Reason for exam:->abnormal imaging [facility] : 1995 Sex: FFluoroscopic unit utilized for a procedure performed in the OR. No interpretation was requested. Refer to the operative report for findings. Refer to PACS for patient radiation dose information.COMPREHENSIVE METABOLIC [id number] 06:43:00 Test Item Value Reference Range Interpretation [...] S NOT APPLICABLE FOR DIALYSIS PATIEN TS. Thermite Bomb Loader ID - MADISON MC (HEMOGRAM ONLY)2020-09-24 06:04:00 Test Item Value Reference [...] (BEAKER) (test code = 413) COMPREHENSIVE METABOLIC [id number] 07:06:00 Test Item Value Reference Range Interpretation [...] S NOT APPLICABLE FOR DIALYSIS PATIEN TS. Thermite Bomb Loader ID - PIAYA LCBC (HEMOGRAM ONLY)2020-09-23 06:47:00 [...] (BEAKER) (test code = 413) COMPREHENSIVE METABOLIC [id number] 08:27:00 Test Item Value Reference Range Interpretation [...] S NOT APPLICABLE FOR DIALYSIS PATIEN TS. Thermite Bomb Loader ID - MADISON [id number] 08:27:00 Test Item Value Reference Range Interpretation Comments MAGNESIUM (BEAKER) (test code = 2.4 mg/dL 1.6-2.6 627) Thermite Bomb Loader ID - MADISON MPROTHROMBIN TIME/[id number] 07:59:00 Test Item Value Reference Range Interpretation Comments PROTIME (BEAKER) 13.0 seconds 11.9-14.2 (test code = 759) INR (BEAKER) (test 1.00 See_Comment [Automat ed message] code = 370) The system Iceberg generated this result transmitted ref erence range: [...] 0-1 H PERCENT (BEAKER) (test code = 1250)
[2021-08-24] MEDS ORDERED: ACETAMINOPHEN 500 MG TAB ONE (07:45)
[2021-08-24] MEDS ORDERED: ONDANSETRON 4 MG/2 ML VIAL ONE (07:45)
[2021-08-24] MEDS ORDERED: NA CHLORIDE 0.9% 1,000 ML ONE (07:46)
[2021-08-24 07:54] LABS: Urine Blood Negative (Negative); Urine Glucose Negative (Negative); Urine Protein Negative (Negative)
[2021-08-24 07:54] LABS: Hematocrit 34.9 % (36.0-45.0); Lymphocytes % 31.2 % (15.3-44.8); MPV 7.4 fL (7.6-11.3); RBC Red Blood Cell Count 4.24 M/uL (3.86-4.86)
[2021-08-24 08:16] LABS: Urine Bacteria <20 /HPF (<20); Urine RBC <5 /HPF (NONE SEEN)
[2021-08-24 10:02] LABS: Albumin 3.3 g/dL (3.4-5.0); Bilirubin Total 0.2 mg/dL (0.2-1.0); Potassium 3.5 mmol/L (3.5-5.1); Protein, Total 6.5 g/dL (6.4-8.2)
--- NOTE | 2021-08-24 10:29 | ER ---
Nurse's Notes [facility] Name: Mile Wang Age: 26 yrs Sex: Female : 1995 Arrival Date: 08/24/2021 Time: 07:06 Bed 19 Private MD: Jericho Stephenson Diagnosis: Abdominal pain, Generalized Presentation: 08/24 07:14 Chief complaint: Patient states: L sided abd pain with N/V started around 3 am while at 1 work. 13 weeks , . Coronavirus screen: Vaccine status: Patient reports receiving the 2nd dose of the covid vaccine. Client denies travel out of the [place] in the last 14 days. nausea, vomiting. Client presents with at least one sign or symptom that may indicate coronavirus-19. Standard/surgical mask placed on the client. Ebola Screen: Patient denies travel to an Ebola-affected area in the 21 days before illness onset. Initial Sepsis Screen: Does the patient meet any 2 criteria? No. Patient's initial sepsis screen is negative. Does the patient have a suspected source of infection? Yes: Acute abdominal pain. Risk Assessment: Do you want to hurt yourself or someone else? Patient reports no desire to harm self or others. Onset of symptoms was August 24, 2021. 07:14 Method Of Arrival: Ambulatory ll1 07:14 Acuity: BAIRON 3 ll1 Triage Assessment: 07:16 General: Appears uncomfortable, Behavior is calm, cooperative, appropriate for age. ll1 Pain: Complains of pain in abdomen Quality of pain is described as aching. Neuro: No deficits noted. GI: Reports lower abdominal pain, upper abdominal pain, cramping, nausea, vomiting. CLEANER SIGNS: 07:30 3, Full Term 2, Verified ll1 Historical: - Allergies: 07:12 Doxycycline; ll1 07:12 tramadol; ll1 07:12 Macrobid; ll1 07:12 vinpap; ll1 - PMHx: 07:12 Anxiety; Bipolar disorder; Psychogenic Seizures; Seizures; stent in gallbladder; ll1 - PSHx: 07:12 Cholecystectomy; Tonsillectomy; ll1 - Immunization history:: Client reports receiving the 2nd dose of the Covid vaccine. - Social history:: Smoking status: Patient denies any tobacco usage or history of. - Family history:: not pertinent. Screenin:30 Abuse screen: Denies threats or abuse. Nutritional screening: No deficits noted. ll1 Tuberculosis screening: No symptoms or risk factors identified. Fall Risk IV access (20 points). Total Catalan Fall Scale indicates No Risk (0-24 pts). Assessment: 07:56 Reassessment: No changes from previously documented assessment. Patient and/or family ll1 updated on plan of care and expected duration. Pain level reassessed. Patient is alert, oriented x 3, equal unlabored respirations, skin warm/dry/pink. GI: Abdomen is flat. 09:00 Reassessment: No changes from previously documented assessment. Patient and/or family ll1 updated on plan of care and expected duration. Pain level reassessed. Patient is alert, oriented x 3, equal unlabored respirations, skin warm/dry/pink. 10:00 Reassessment: No changes from previously documented assessment. Patient and/or family ll1 updated on plan of care and expected duration. Pain level reassessed. Patient is alert, oriented x 3, equal unlabored respirations, skin warm/dry/pink. 10:41 Reassessment: No changes from previously documented assessment. Patient and/or family ll1 updated on plan of care and expected duration. Pain level reassessed. Patient is alert, oriented x 3, equal unlabored respirations, skin warm/dry/pink. Vital Signs: 07:14 BP 127 / 78; Pulse 80; Resp 16; Temp 97.5; Pulse Ox 100% ; Weight 85.73 kg; Height 5 ll1 ft. 4 in. (162.56 cm); Pain 8/10; 10:40 BP 111 / 63; Pulse 75; Resp 16; Pulse Ox 100% ; ll1 07:14 Body Mass Index 32.44 (85.73 kg, 162.56 cm) ll1 ED Course: 07:06 Patient arrived in ED. es 07:06 Jericho Stephenson DO is Private Physician. es 07:12 Stella Aldridge, JUAN M is Primary Nurse. ll1 07:12 Arm band placed on Patient placed in an exam room, on a stretcher. ll1 07:16 Triage completed. ll1 07:25 Missed attempt(s): 22 gauge in right forearm. Bleeding controlled, band aid applied, ll1 catheter tip intact. 07:30 Patient has correct armband on for positive identification. Bed in low position. Call ll1 light in reach. Side rails up X 1. Cardiac monitoring not applicable on this patient. 07:30 Inserted saline lock: 22 gauge in left upper arm, using aseptic technique. Blood ll1 collected. 07:31 Rodrigo La MD is Attending Physician. ma2 10:41 No provider procedures requiring assistance completed. IV discontinued, intact, ll1 bleeding controlled, No redness/swelling at site. Pressure dressing applied. Administered Medications: 07:47 Drug: NS 0.9% 1000 ml Route: IV; Rate: 1 bolus; Site: left upper arm; ll1 09:24 Follow up: Response: No adverse reaction; IV Status: Completed infusion; IV Intake: ll1 1000ml 07:47 Drug: Zofran (Ondansetron) 4 mg Route: IVP; Site: left upper arm; ll1 09:24 Follow up: Response: No adverse reaction ll1 07:56 Drug: Tylenol 500 mg Route: PO; ll1 09:25 Follow up: Response: No adverse reaction ll1 Medication: 07:30 VIS not applicable for this client. ll1 Intake: 09:24 IV: 1000ml; Total: 1000ml. ll1 Outcome: 10:29 Discharge ordered by . ma2 10:41 Discharged to home ambulatory. ll1 10:41 Condition: stable 10:41 Discharge instructions given to patient, Instructed on discharge instructions, follow up and referral plans. medication usage, Demonstrated understanding of instructions, follow-up care, medications, Prescriptions given X 1. 10:41 Patient left the ED. ll1 Signatures: Fannie Borrero Mohammad, MD MD ma2 Stella Aldridge RN RN ll1 Corrections: (The following items were deleted from the chart) 07:16 07:14 Chief complaint: Patient states: L sided abd pain with N/V started around 3 am ll1 while at work. ll1
--- NOTE | 2021-08-24 10:30 | EDPHYS ---
Physician Documentation [facility] Name: Mile Wang Age: 26 yrs Sex: Female : 1995 Arrival Date: 08/24/2021 Time: 07:06 Bed 19 Private MD: Sachin [facility] ED Physician Rodrigo La HPI: 08/24 08:30 This 26 yrs old Female presents to ER via Ambulatory with complaints of Vomiting, Flank ma2 Pain. 08:30 Associated signs and symptoms: Pertinent negatives: belching, diarrhea, fever, GI ma2 bleeding. Severity of symptoms: At their worst the symptoms were moderate in the emergency department the symptoms are unchanged. -year-old female, 13 weeks who presents with left-sided abdominal pain lasted for 1 minute, resolved patient vomited during that time, patient denies any other symptoms no vaginal bleeding no urinary symptoms, also denies resolved at this time.. ACCESS LIAISON: 07:30 3, Full Term 2, Verified ll1 Historical: - Allergies: 07:12 Doxycycline; ll1 07:12 tramadol; ll1 07:12 Macrobid; ll1 07:12 vinpap; ll1 - PMHx: 07:12 Anxiety; Bipolar disorder; Psychogenic Seizures; Seizures; stent in gallbladder; ll1 - PSHx: 07:12 Cholecystectomy; Tonsillectomy; ll1 - Immunization history:: Client reports receiving the 2nd dose of the Covid vaccine. - Social history:: Smoking status: Patient denies any tobacco usage or history of. - Family history:: not pertinent. ROS: 08:30 Constitutional: Negative for fever, chills, and weight loss. ma2 08:30 All other systems are negative. Exam: 08:30 Constitutional: This is a well developed, well nourished patient who is awake, alert, ma2 and in no acute distress. Head/Face: Normocephalic, atraumatic. Eyes: Pupils equal round and reactive to light, extra-ocular motions intact. Lids and lashes normal. Conjunctiva and sclera are non-icteric and not injected. Cornea within normal limits. Periorbital areas with no swelling, redness, or edema. ENT: Nares patent. No nasal discharge, no septal abnormalities noted. Tympanic membranes are normal and external auditory canals are clear. Oropharynx with no redness, swelling, or masses, exudates, or evidence of obstruction, uvula midline. Mucous membranes moist. Neck: Trachea midline, no thyromegaly or masses palpated, and no cervical lymphadenopathy. Supple, full range of motion without nuchal rigidity, or vertebral point tenderness. No Meningismus. Chest/axilla: Normal chest wall appearance and motion. Nontender with no deformity. No lesions are appreciated. Cardiovascular: Regular rate and rhythm with a normal S1 and S2. No gallops, murmurs, or rubs. Normal PMI, no JVD. No pulse deficits. Respiratory: Lungs have equal breath sounds bilaterally, clear to auscultation and percussion. No rales, rhonchi or wheezes noted. No increased work of breathing, no retractions or nasal flaring. Abdomen/GI: Soft, non-tender, with normal bowel sounds. No distension or tympany. No guarding or rebound. No evidence of tenderness throughout. Skin: Warm, dry with normal turgor. Normal color with no rashes, no lesions, and no evidence of cellulitis. MS/ Extremity: Pulses equal, no cyanosis. Neurovascular intact. Full, normal range of motion. Neuro: Awake and alert, GCS 15, oriented to person, place, time, and situation. Cranial nerves II-XII grossly intact. Motor strength 5/5 in all extremities. Sensory grossly intact. Cerebellar exam normal. Normal gait. Vital Signs: 07:14 BP 127 / 78; Pulse 80; Resp 16; Temp 97.5; Pulse Ox 100% ; Weight 85.73 kg; Height 5 ll1 ft. 4 in. (162.56 cm); Pain 8/10; 10:40 BP 111 / 63; Pulse 75; Resp 16; Pulse Ox 100% ; ll1 07:14 Body Mass Index 32.44 (85.73 kg, 162.56 cm) ll1 MDM: 07:31 Patient medically screened. in2 08:30 Differential diagnosis: gastritis, viral gastroenteritis, gastroenteritis. in2 10:28 Data reviewed: vital signs, nurses notes. Counseling: I had a detailed discussion with ma2 the patient and/or guardian regarding: the historical points, exam findings, and any diagnostic results supporting the discharge/admit diagnosis, the presence of at least one elevated blood pressure reading (>120/80) during this emergency department visit, the need for outpatient follow up. Response to treatment: the patient's symptoms have markedly improved after treatment. 10:29 ED course: Patient had normal ultrasound done few days ago that showed IUP. [facility] 08/24 07:34 Order name: CBC with Diff; Complete Time: 10:25 in2 08/24 07:34 Order name: CMP; Complete Time: 10:25 in2 08/24 07:34 Order name: Lipase; Complete Time: 10:25 in2 08/24 07:34 Order name: Urine Microscopic Only; Complete Time: 10:25 in2 08/24 07:34 Order name: HCG-Quantitative; Complete Time: 10:25 [facility] 08/24 07:54 Order name: Urine Dipstick-Ancillary; Complete Time: 10:25 [facility] 08/24 07:34 Order name: IV Saline Lock; Complete Time: 07:34 2 08/24 07:34 Order name: Labs collected and sent; Complete Time: 07:34 [facility] 08/24 07:34 Order name: Urine Dipstick-Ancillary (obtain specimen); Complete Time: 07:49 08/24 07:34 Order name: Urine Test (obtain specimen); Complete Time: 07:49 [facility] 08/24 07:59 Order name: Urine --Ancillary (enter results) eb Administered Medications: 07:47 Drug: NS 0.9% 1000 ml Route: IV; Rate: 1 bolus; Site: left upper arm; ll1 09:24 Follow up: Response: No adverse reaction; IV Status: Completed infusion; IV Intake: ll1 1000ml 07:47 Drug: Zofran (Ondansetron) 4 mg Route: IVP; Site: left upper arm; ll1 09:24 Follow up: Response: No adverse reaction ll1 07:56 Drug: Tylenol 500 mg Route: PO; ll1 09:25 Follow up: Response: No adverse reaction ll1 Disposition Summary: 08/24/21 10:29 Discharge Ordered Location: Home ma2 Condition: Stable ma2 Diagnosis - Abdominal pain, Generalized ma2 Followup: ma2 - With: Private Physician - When: Tomorrow - Reason: If symptoms return, Continuance of care Discharge Instructions: - Discharge Summary Sheet ma2 - Abdominal Pain, Adult ma2 Forms: - Medication Reconciliation Form ma2 - Thank You Letter ma2 - Work release form ss - Antibiotic Education ma2 - Prescription Opioid Use ma2 Prescriptions: - Zofran 4 mg Oral Tablet - take 1 tablet by ORAL route every 12 hours As needed; 20 tablet; Refills: 0, ma2 Product Selection Permitted Signatures: Dispatcher [employer] EDMS Rodrigo La MD MD ma2 Stella Aldridge RN RN ll1
[2021-08-24 10:50] VITALS: TEMP 97.5; O2SAT 100
[2021-08-24 10:52] VITALS: BP 111/63
== END 2021-08-24 10:41 | disposition home or self-care (01) ==
LOC: ER 07:02
DX: R10.84 Generalized abdominal pain (principal); Z88.3 Allergy status to other anti-infective agents; Z88.6 Allergy status to analgesic agent; F41.9 Anxiety disorder, unspecified; F31.9 Bipolar disorder, unspecified; R56.9 Unspecified convulsions
CPT/HCPCS: 96361; 85025; 36415; 81025; 84702; 83690; 80053; 96374; 99284; J7030; J2405; 81003; 81015

== ENCOUNTER 2021-08-29 05:01 | Emergency (ER) | payer BC, OTHER ==
--- OUTSIDE RECORDS SUMMARY | 2021-08-29 05:06 | XMS REPORT | Continuity of Care Document ---
:1995 Author Organization [facility] t Address [address] [place] [address] Care Team Providers Name Role Phone Asked, Pcp Primary Care Physician Unavailable TESHA Attending Clinician Unavailable 1, Us Room Attending Clinician Unavailable Polina TAYLOR M Attending Clinician Irma WHCNP, C Attending Clinician Sandoval LUBRICATING ENGINEER, N Attending Clinician TESHA Admitting Clinician Unavailable [...] smear pap in of cervix of cervix 107/2022 Supervisio Supervisio Disease Active U nivers n [...] of in in 00:00: g of this [place] 00 note Medi tressa might be Branch different from the original. Last episode 2 months ago , not on meds UTI UTI Disease Active Univers symptoms symptoms 06-07 ity of 00:00: Medical Branch Abnormal Abnormal Disease Active Unive rs EKG EKG 10-08 ity of 00:00: [place] [facility] Vaginal Vaginal Disease Active Univers discharge discharge 09-08 ity of 00:00: [place] [facility] Chlamydia Chlamydia Disease Active Uni [...] ity of adverse 00:00: [place] reaction 00 [facility] Branch Social History Social Habit Start Date Stop Date Quantity Comments Source ASSERTION 2021-06-06 [facility] 00:00:00 [facility] Exposure to 2021-08-09 2021-08-19 Not sure [facility] SARS-CoV-2 (event) 00:00:00 14:53:00 [facility] Alcohol intake 2021-08-08 2021-08-08 0 /d [facility] 00:00:00 00:00:00 [facility] Tobacco use and 2015-12-21 2015-12-21 Never used [facility] exposure 00:00:00 00:00:00 [facility] Sex Ass[birth year] At [birth year] [facility] 00:00:00 00:00:00 [facility] Smoking Status Start Date Stop Date Source Never smoker [facility] Medications Ordered Filled Start Stop Current Ordering Indication Dosage Frequency Signature Comments Components Source Medication Medication Date Date Medication? Clinician (SIG) Name Name busPIRone Yes [id number] 18.75mg Take 2.5 Univers 7.5 mg 5-12 tablets by ity of tablet 00:00: mouth 3 00 (three) Medical times [place] daily. busPIRone Yes [id number] 18.75mg Take 2.5 Univers 7.5 mg 5-12 tablets by ity of tablet 00:00: mouth 3 00 (three) Medical times [place] daily. lamoTRIgine 2021- Yes [id number] Take 1 Univers 25 mg 5-12 07-10 [...] daily for 30 days. lamoTRIgine 2021- Yes [id number] Take 1 Univers 25 mg 5-12 07-10 tablet by ity of tablet 00:00: 04:59 mouth [place] 00 :00 daily for Medical 7 days, Branch THEN 1 tablet 2 (two) times daily for 7 days, THEN 2 tablets every morning for 7 days, THEN 2 tablets 2 (two) times daily for 7 days, THEN 4 tablets 2 (two) times daily for 30 days. Yes [id number] 1{tbl} Take 1 U nivers multivitami 5-05 tablet by ity of n ( 00:00: mouth [place] VITAMIN) 00 daily. [facility] Branch Yes [id number] 1{tbl} Take 1 U nivers multivitami 5-05 tablet by ity of n ( 00:00: mouth [place] VITAMIN) 00 daily. [facility] Immunizations Ordered Filled Immunization Date Status Comments [facility] e Immunization Name Name HPV9 2019-12-30 Completed University of 00:00:00 [facility] HPV9 2019-12-30 Completed University of 00:00:00 [facility] HPV9 2019-09-27 Completed University of 00:00:00 [facility] HPV9 2019-09-27 Completed University of 00:00:00 [facility] HPV9 2019-05-17 Completed University of 00:00:00 [facility] HPV9 2019-05-17 Completed University of 00:00:00 [facility] TDAP (ADACEL) 2018-02-15 Completed University of VACCINE 00:00:00 [facility] TDAP (ADACEL) 2018-02-15 Completed University of VACCINE 00:00:00 [facility] Influenza Virus 2017-12-14 Completed Universit y of Vaccine Quad IM 3+ 00:00:00 [facility] [place] [facility] Influenza Virus 2017-12-14 Completed Universit y of Vaccine Quad IM 3+ 00:00:00 [place] [facility] Y[facility] Varicella 2016-05-24 Completed University of (varivax)(chicken 00:00:00 [facility] edical pox) Branch Varicella 2016-05-24 Completed University of (varivax)(chicken 00:00:00 [facility] edical pox) Branch TDAP 2016-04-03 Completed University of 00:00:00 [facility] TDAP 2016-04-03 Completed University of 00:00:00 [facility] Rho (d) Immune 2016-03-27 Completed University of Globulin 00:00:00 [facility] Rho (d) Immune 2016-03-27 Completed University of Globulin 00:00:00 [facility] Vital Signs Vital Name Observation Time [...] e FIRST TRIMESTER 2021-08-19 19:38:00 Enedina Solis yolie [facility] ULTRASOUND [facility] Plan of Care Planned Activity Planned Date Details Comments Source Future Scheduled Test Hepatitis C screening [facility] (procedure) [code = 713989713] Future Scheduled Test Screening for [facility] malignant neoplasm of cervix (procedure) [code = 928103058] Future Scheduled Test INFLUENZA VACCINE [facility] [code = INFLUENZA VACCINE] Future Scheduled Test CHLAMYDIA SCREENING [facility] [code = CHLAMYDIA SCREENING] Future Scheduled Test COVID-19 VACCINE (1) [facility] [code = COVID-19 VACCINE (1)] Encounters Start End Encounter Admission Attending Care Care Encounter Source Date/Time Date/Time Type Type Clinicians Facility Department ID 2020-09-21 Inpatient ER RIN PARKINSON Gastro [id number] SLE 19:23:00 JOANNE 2021-08-19 2021-08-19 Programming Coordinator 1Urbano Room [facility] [email or web address]] [id number] [facility] 14:15:00 14:51:59 Visit Luke Fish LOCAL [place] TRUCK DR[place] [id number] ity [facility] [id number] Dwayne as MATERNAL [id number] Med ical & CHILD 369 [facility] 2021-08-19 2021-08-19 [facility] [id number] Univers 00:00:00 00:00:00 Enedina Herb [place]AL [place] [id number] ity [facility] [id number] Dwayne as MATERNAL [id number] Med ical & CHILD 107 [facility] 2020-10-15 2020-10-15 Telephone [facility] [id number] 00:00:00 00:00:00 Monique N LOCAL [place] TR[place] DR[place] [id number] [facility] [id number] MATERNAL [phone] & CHILD 107 [facility] 2020-10-12 2020-10-12 Telephone [facility] [id number] 00:00:00 00:00:00 Monique N [place]AL [place] [id number] REGIONAL [id number] MATERNAL [phone] & CHILD 107 [facility] 2020-10-11 2020-10-11 Telephone [facility] [id number] 00:00:00 00:00:00 Monique N [place]AL [place] TR[place] [id number] REGIONAL [id number] MATERNAL [id number] & CHILD 107 [facility] 2020-10-09 2020-10-09 Office [facility] [id number] 15:44:08 16:29:53 Visit Monique N LOCAL [place] TR[place] DR[place] [id number] REGIONAL [id number] MATERNAL [phone] & CHILD 107 [facility] Results Test Description Test Time Test Comments Results Result Comments Source LITHIUM LEVEL 2020-09-24 18:22:00 Test Item Value Reference Range Interpretation Comme nts LITHIUM LEVEL (BEAKER) (test code = 630) 0.8 mmol/L 0.8-1.2 SCAN RESULT (test code = 0232794) See Scanned Report KATIE, [id number] 14:13:01Reason for exam:->abnormal imaging [facility] : 1995 Sex: FFluoroscopic unit utilized for a procedure performed in the OR. No interpretation was requested. Refer to the operative report for findings. Refer to PACS for patient radiation dose information.COMPREHENSIVE METABOLIC [id number] 06:43:00 Test Item Value Reference Range Interpretation [...] S NOT APPLICABLE FOR DIALYSIS PATIEN TS. Milled Rubber Tender ID - [place] MC (HEMOGRAM ONLY)2020-09-24 06:04:00 [...] (BEAKER) (test code = 413) COMPREHENSIVE METABOLIC [id number] 07:06:00 Test Item Value Reference Range Interpretation [...] S NOT APPLICABLE FOR DIALYSIS PATIEN TS. Milled Rubber Tender ID - PIAYA LCBC (HEMOGRAM ONLY)2020-09-23 06:47:00 [...] (BEAKER) (test code = 413) COMPREHENSIVE METABOLIC [id number] 08:27:00 Test Item Value Reference Range Interpretation [...] S NOT APPLICABLE FOR DIALYSIS PATIEN TS. Milled Rubber Tender ID - [place] [id number] 08:27:00 Test Item Value Reference Range Interpretation Comments MAGNESIUM (BEAKER) (test code = 2.4 mg/dL 1.6-2.6 627) Milled Rubber Tender ID - [place] MPROTHROMBIN [id number] 07:59:00 Test Item Value Reference Range Interpretation Comments PROTIME (BEAKER) 13.0 seconds 11.9-14.2 (test code = 759) INR (BEAKER) (test 1.00 See_Comment [Automat ed message] code = 370) The system [employer] generated this result transmitted ref erence range: [...] 0-1 H PERCENT (BEAKER) (test code = 2830)
[2021-08-29] MEDS ORDERED: ACETAMINOPHEN 325 MG TABLET ONE (05:35)
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
[2021-08-29 07:04] VITALS: TEMP 98.8
[2021-08-29 07:05] VITALS: BP 118/74; O2SAT 100
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
== END 2021-08-29 06:59 | disposition home or self-care (01) ==
LOC: ER 05:01
DX: O9A.211 Injury, poisoning and certain other consequences of external causes complicating pregnancy, first trimester (principal); S00.83XA Contusion of other part of head, initial encounter; Z3A.13 13 weeks gestation of pregnancy; Y04.2XXA Assault by strike against or bumped into by another person, initial encounter; Z88.1 Allergy status to other antibiotic agents; Z88.5 Allergy status to narcotic agent; Z88.8 Allergy status to other drugs, medicaments and biological substances
CPT/HCPCS: 70450; 70486; 72125; 76377; 99284

== ENCOUNTER 2021-09-10 18:55 | Emergency (ER) | payer BC, OTHER ==
--- NOTE | 2021-09-10 19:47 | RAD REPORT ---
EXAM DESCRIPTION: RAD - Chest Single View - 09/10/2021 7:22 pm CLINICAL HISTORY: COUGH Chest pain. COMPARISON: Chest Single View dated 10/25/2016; Chest Single View dated 07/24/2015 FINDINGS: Portable technique limits examination quality. The lungs are grossly clear. The heart is normal in size. No displaced fractures. IMPRESSION: No acute intrathoracic process suspected.
--- NOTE | 2021-09-10 20:42 | EDPHYS ---
Physician Documentation [facility] Name: Mile Wang Age: 26 yrs Sex: Female : 1995 Arrival Date: 09/10/2021 Time: 18:58 Bed 28 Private MD: ED Physician Mesfin Brenner HPI: 09/10 20:01 This 26 yrs old Female presents to ER via Ambulatory with complaints of Cough, Body rn Aches,COVID+. 20:01 The patient or guardian reports cough, flu symptoms, low-grade fever, myalgias. Onset: rn The symptoms/episode began/occurred yesterday. Severity of symptoms: At their worst the symptoms were mild, in the emergency department the symptoms are unchanged. Modifying factors: The symptoms are alleviated by nothing, the symptoms are aggravated by nothing. Associated signs and symptoms: Pertinent negatives: chest pain, vomiting. The patient has not experienced similar symptoms in the past. The patient has not recently seen a physician. Pt reports now 2 days of malaise, subjective fever, chills, cough, congestion. Took home covid test and was positive, work wont take it, came in for confirmation. Denies chest pain or sob. . 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 Flu vaccine is not up to date. - Social history:: Smoking status: Patient denies any tobacco usage or history of. - Family history:: not pertinent. - Hospitalizations: : No recent hospitalization is reported. ROS: 20:01 Constitutional: + fever and chills Eyes: Negative for injury, pain, redness, and recruiting intern, ENT: + congestion Cardiovascular: Negative for chest pain, palpitations, and edema, Respiratory: + cough Abdomen/GI: Negative for abdominal pain, nausea, vomiting, diarrhea, and constipation, MS/Extremity: Negative for injury and deformity, Skin: Negative for injury, rash, and discoloration, Neuro: + headache and malaise Exam: 20:01 Constitutional: This is a well developed, well nourished patient who is awake, alert, rn and in no acute distress. Head/Face: Normocephalic, atraumatic. Eyes: Pupils equal round and reactive to light, extra-ocular motions intact.Periorbital areas with no swelling, redness, or edema. ENT: No stridor Neck: Trachea midline, no thyromegaly or masses palpated, and no cervical lymphadenopathy. Supple, full range of motion without nuchal rigidity, or vertebral point tenderness. No Meningismus. Cardiovascular: Regular rate and rhythm. No pulse deficits. Respiratory: No increased work of breathing, no retractions or nasal flaring. Skin: Warm, dry with normal turgor. Normal color with no rashes, no lesions, and no evidence of cellulitis. MS/ Extremity: Pulses equal, no cyanosis. Neurovascular intact. Full, normal range of motion. Equal circumference. Neuro: Awake and alert, GCS 15 Vital Signs: 19:36 BP 145 / 76; Pulse 95; Resp 16; Temp 99.1(O); Pulse Ox 100% ; Weight 88 kg; Height 5 vc1 ft. 3 in. (160.02 cm); 19:36 Body Mass Index 34.37 (88.00 kg, 160.02 cm) vc1 MDM: 19:00 Patient medically screened. rn 20:35 Differential Diagnosis: Upper Respiratory Infection Viral Syndrome Pneumonia. Data rn reviewed: vital signs, nurses notes, radiologic studies, and as a result, I will discharge patient. Counseling: I had a detailed discussion with the patient and/or guardian regarding: the historical points, exam findings, and any diagnostic results supporting the discharge/admit diagnosis, radiology results, the need for outpatient follow up, to return to the emergency department if symptoms worsen or persist or if there are any questions or concerns that arise at home. Special discussion: I discussed with the patient/guardian in detail that at this point there is no indication for admission to the hospital. It is understood, however, that if the symptoms persist or worsen the patient needs to return immediately for re-evaluation. Based on the history and exam findings, there is no indication for further emergent testing or inpatient evaluation. I discussed with the patient/guardian the need to see the primary care provider for further evaluation of the symptoms. 09/10 19:29 Order name: SARS-COV-2 RT PCR (Document "Date of Onset" if Symptomatic); Complete Time: rn 20:41 09/10 19:04 Order name: XRAY Chest (1 view); Complete Time: 19:59 rn Administered Medications: No medications were administered Disposition Summary: 09/10/21 20:41 Discharge Ordered Location: Home rn Problem: new rn Symptoms: are unchanged rn Condition: Stable rn Diagnosis - SARS-associated coronavirus as the cause of diseases classified elsewhere rn Followup: rn - With: Private Physician - When: As needed - Reason: Recheck today's complaints, Re-evaluation by your physician Discharge Instructions: - Discharge Summary Sheet rn - COVID-19 rn Forms: - Medication Reconciliation Form rn - Thank You Letter rn - Antibiotic rn on site - Prescription Opioid Use rn Signatures: Dispatcher [employer] EDMesfin Hernandez MD MD rn Calcote, Vanessa, RN RN vc1
--- NOTE | 2021-09-10 20:42 | ER ---
Nurse's Notes [facility] Name: Mile Wang Age: 26 yrs Sex: Female : 1995 Arrival Date: 09/10/2021 Time: 18:58 Bed 28 Private MD: Diagnosis: SARS-associated coronavirus as the cause of diseases classified elsewhere Presentation: 09/10 19:36 Chief complaint: Patient states: "I took an at home covid test and it showed positive, vc1 I've been having deep chest pain, a bad cough, I hurt all over and have been unable to eat in about 3 days. I am also 16 weeks ". Coronavirus screen: Vaccine status: Patient reports being unvaccinated. cough unrelated to allergies, muscle pain, shortness of breath, sore throat, Client presents with at least one sign or symptom that may indicate coronavirus-19. Standard/surgical mask placed on the client. Provider contacted for isolation considerations. Ebola Screen: No symptoms or risks identified at this time. Initial Sepsis Screen: Does the patient meet any 2 criteria? HR > 90 bpm. No. Patient's initial sepsis screen is negative. Does the patient have a suspected source of infection? Yes: Productive cough/pneumonia. Risk Assessment: Do you want to hurt yourself or someone else? Patient reports no desire to harm self or others. Onset of symptoms is unknown. 19:36 Method Of Arrival: Ambulatory vc1 19:36 Acuity: BAIRON 3 vc1 Triage Assessment: 19:41 General: Appears in no apparent distress. uncomfortable, Behavior is calm, cooperative, vc1 appropriate for age. Pain: Complains of pain in chest, head, throat Pain does not radiate. EENT: Reports difficulty swallowing. Neuro: Level of Consciousness is awake, alert, obeys commands, Oriented to person, place, time, situation. Cardiovascular: Capillary refill Patient's skin is warm and dry. Respiratory: Reports shortness of breath cough that is Airway is patent Respiratory effort is even, unlabored, Respiratory pattern is regular, symmetrical. GI: Reports lower abdominal pain, upper abdominal pain. : No deficits noted. Derm: No signs and/or symptoms reported regarding the dermatologic system. Musculoskeletal: No deficits noted. 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 Flu vaccine is not up to date. - Social history:: Smoking status: Patient denies any tobacco usage or history of. - Family history:: not pertinent. - Hospitalizations: : No recent hospitalization is reported. Screenin:44 Abuse screen: Denies threats or abuse. Nutritional screening: No deficits noted. vc1 Tuberculosis screening: No symptoms or risk factors identified. Fall Risk None identified. Assessment: 19:52 Reassessment: Patient appears in no apparent distress at this time. Patient and/or jb4 family updated on plan of care and expected duration. Pain level reassessed. Patient is alert, oriented x 3, equal unlabored respirations, skin warm/dry/pink. 21:10 Reassessment: Patient appears in no apparent distress at this time. Patient and/or jb4 family updated on plan of care and expected duration. Pain level reassessed. Patient is alert, oriented x 3, equal unlabored respirations, skin warm/dry/pink. Vital Signs: 19:36 BP 145 / 76; Pulse 95; Resp 16; Temp 99.1(O); Pulse Ox 100% ; Weight 88 kg; Height 5 vc1 ft. 3 in. (160.02 cm); 19:36 Body Mass Index 34.37 (88.00 kg, 160.02 cm) vc1 ED Course: 18:58 Patient arrived in ED. rg4 18:59 Mesfin Brenner MD is Attending Physician. rn 19:24 XRAY Chest (1 view) In Process Unspecified. EDMS 19:40 Triage completed. vc1 19:43 Arm band placed on right wrist. vc1 19:44 Theodore Woods, JUAN M is Primary Nurse. jb4 19:44 Patient has correct armband on for positive identification. Pulse ox on. NIBP on. vc1 21:11 No provider procedures requiring assistance completed. Patient did not have IV access jb4 during this emergency room visit. Administered Medications: No medications were administered Medication: 21:10 VIS not applicable for this client. jb4 Outcome: 20:41 Discharge ordered by . rn 21:11 Discharged to home ambulatory. jb4 21:11 Condition: stable 21:11 Discharge instructions given to patient, Instructed on discharge instructions, follow up and referral plans. Demonstrated understanding of instructions, follow-up care. 21:11 Patient left the ED. jb4 Signatures: Dispatcher [employer] EDMS Mesfin Brenner MD MD rn Garcia, Rubi rg4 Theodore Woods RN RN jb4 Sudha Alejandre RN RN vc1
[2021-09-10 21:51] VITALS: BP 145/76; TEMP 99.1; O2SAT 100
== END 2021-09-10 21:11 | disposition home or self-care (01) ==
LOC: ER 18:55
DX: O98.512 Other viral diseases complicating pregnancy, second trimester (principal); U07.1 COVID-19; Z3A.15 15 weeks gestation of pregnancy; Z88.1 Allergy status to other antibiotic agents; Z88.5 Allergy status to narcotic agent; Z88.8 Allergy status to other drugs, medicaments and biological substances
CPT/HCPCS: 71045; U0003

== ENCOUNTER 2021-10-04 18:15 | Emergency (ER) | payer BC, OTHER ==
--- NOTE | 2021-10-04 22:13 | RAD REPORT ---
EXAM DESCRIPTION: RAD - Chest Single View - 10/04/2021 10:06 pm CLINICAL HISTORY: CHEST PAIN Chest pain. COMPARISON: Chest Single View dated 09/10/2021; Chest Single View dated 10/25/2016; Chest Single View d ated 07/24/2015 FINDINGS: Portable technique limits examination quality. The lungs are grossly clear. The heart is normal in size. No displaced fractures. IMPRESSION: No acute intrathoracic process suspected.
[2021-10-04] MEDS ORDERED: NA CHLORIDE 0.9% 1,000 ML ONE (22:25)
[2021-10-05 00:42] LABS: Hematocrit 33.6 % (36.0-45.0); Lymphocytes % 34.8 % (15.3-44.8); MPV 8.2 fL (7.6-11.3); RBC Red Blood Cell Count 3.95 M/uL (3.86-4.86)
[2021-10-05 00:48] LABS: Protime INR 0.97
[2021-10-05 00:51] LABS: Urine Blood Negative (Negative); Urine Glucose Negative (Negative); Urine Protein Negative (Negative); Urine Specific Gravity 1.015 (1.005-1.030)
[2021-10-05 01:03] LABS: ALT/SGPT 11 U/L (12-78); AST/SGOT 10 U/L (15-37); Albumin 3.1 g/dL (3.4-5.0); Alkaline Phosphatase 61 U/L (45-117); BUN Blood Urea Nitrogen 6 mg/dL (7-18); Bicarbonate 22 mmol/L (21-32); Bilirubin Direct < 0.1 mg/dL (0-0.2); Bilirubin Total 0.3 mg/dL (0.2-1.0); Glomerular Filtration Rate 140 ml/min (=/>90); Glucose Level 75 mg/dL (74-106); Protein, Total 6.2 g/dL (6.4-8.2); Sodium Level 139 mmol/L (136-145); Troponin High Sensitivity 4.2 pg/mL (<58.9)
[2021-10-05 01:11] LABS: Urine Bacteria 20-50 /HPF (<20)
[2021-10-05 01:16] LABS: Barbiturates NEGATIVE (NEGATIVE); Benzodiazepines NEGATIVE (NEGATIVE); Cocaine NEGATIVE (NEGATIVE); METHAMPHETAM NEGATIVE (NEGATIVE); Methadone NEGATIVE (NEGATIVE); Opiates NEGATIVE (NEGATIVE); Phencyclidine NEGATIVE (NEGATIVE); THC Cannibis NEGATIVE (NEGATIVE)
[2021-10-05 01:17] LABS: HCG, Quantitative 9584 mIU/mL (1-3)
[2021-10-05 01:29] LABS: Potassium 2.9 mmol/L (3.5-5.1)
[2021-10-05] MEDS ORDERED: CEFTRIAXONE 1000 MG/VIAL ONE (01:53)
[2021-10-05] MEDS ORDERED: POTASSIUM 25 MEQ EFFERV TAB ONE (01:54)
--- NOTE | 2021-10-05 02:25 | EDPHYS ---
Physician Documentation [facility] Name: Mile Wang Age: 26 yrs Sex: Female : 1995 Arrival Date: 10/04/2021 Time: 18:17 Bed 25 Private MD: ED Physician Samir Carter HPI: 10/04 21:10 This 26 yrs old Female presents to ER via Ambulatory with complaints of Memory Loss, mh7 Confusion. 21:10 The patient's problem is reported as altered mental status, confused. Onset: The mh7 symptoms/episode began/occurred today, at an unknown time. Duration: This was a single incident. Context: the episode(s) was witnessed, by no one, symptoms became apparent at an unknown time, occurred at a store, occurred while the patient was standing, Possible contributing factors include: unknown. The symptoms are alleviated by nothing. The symptoms are aggravated by nothing. 21:10 Associated signs and symptoms: Pertinent negatives: abdominal pain, agitation, ataxia, mh7 blurred vision, chest pain, combativeness, diaphoresis, diarrhea, dizziness, headache, lightheadedness, nausea, numbness, palpitations, seizure, shortness of breath, tingling, vertigo, vomiting, weakness. 21:10 Severity of symptoms: At their worst the symptoms were moderate today, in the emergency 7 department the symptoms have resolved and did so just prior to arrival. Patient's baseline: Neuro: alert and fully oriented, Motor: no deficits, Ambulation: walks without assistance, Speech: normal. States that she got confused while at grocery store today. She was pushing wrong cart in store. She is able to give full history of event with details. . Historical: - Allergies: 18:58 Doxycycline; iw 18:58 Macrobid; iw 18:58 tramadol; iw 18:58 Vimpat; iw - PMHx: 18:58 Anxiety; Bipolar disorder; Psychogenic Seizures; Seizures; stent in gallbladder; Angina iw pectoris; ROS: 21:10 Constitutional: Negative for fever, chills, and weight loss, Eyes: Negative for injury, mh7 pain, redness, and discharge, ENT: Negative for injury, pain, and discharge, Neck: Negative for injury, pain, and swelling, Cardiovascular: Negative for chest pain, palpitations, and edema, Respiratory: Negative for shortness of breath, cough, wheezing, and pleuritic chest pain, Abdomen/GI: Negative for abdominal pain, nausea, vomiting, diarrhea, and constipation, Back: Negative for injury and pain, : Negative for injury, bleeding, discharge, and swelling, MS/Extremity: Negative for injury and deformity, Skin: Negative for injury, rash, and discoloration, Neuro: Negative for headache, weakness, numbness, tingling, and seizure, Psych: Negative for depression, anxiety, suicide ideation, homicidal ideation, and hallucinations, Allergy/Immunology: Negative for hives, rash, and allergies, Endocrine: Negative for neck swelling, polydipsia, polyuria, polyphagia, and marked weight changes, Hematologic/Lymphatic: Negative for swollen nodes, abnormal bleeding, and unusual bruising. Exam: 21:10 Constitutional: This is a well developed, well nourished patient who is awake, alert, mh7 and in no acute distress. Head/Face: Normocephalic, atraumatic. Eyes: Pupils equal round and reactive to light, extra-ocular motions intact. Lids and lashes normal. Conjunctiva and sclera are non-icteric and not injected. Cornea within normal limits. Periorbital areas with no swelling, redness, or edema. Neck: Trachea midline, no thyromegaly or masses palpated, and no cervical lymphadenopathy. Supple, full range of motion without nuchal rigidity, or vertebral point tenderness. No Meningismus. Chest/axilla: Normal chest wall appearance and motion. Nontender with no deformity. No lesions are appreciated. Cardiovascular: Regular rate and rhythm with a normal S1 and S2. No gallops, murmurs, or rubs. Normal PMI, no JVD. No pulse deficits. Respiratory: Lungs have equal breath sounds bilaterally, clear to auscultation and percussion. No rales, rhonchi or wheezes noted. No increased work of breathing, no retractions or nasal flaring. Abdomen/GI: Soft, non-tender, with normal bowel sounds. No distension or tympany. No guarding or rebound. No evidence of tenderness throughout. Back: No spinal tenderness. No costovertebral tenderness. Full range of motion. Skin: Warm, dry with normal turgor. Normal color with no rashes, no lesions, and no evidence of cellulitis. MS/ Extremity: Pulses equal, no cyanosis. Neurovascular intact. Full, normal range of motion. Neuro: Awake and alert, GCS 15, oriented to person, place, time, and situation. Cranial nerves II-XII grossly intact. Motor strength 5/5 in all extremities. Sensory grossly intact. Cerebellar exam normal. Normal gait. Psych: Awake, alert, with orientation to person, place and time. Behavior, mood, and affect are within normal limits. Vital Signs: 18:56 BP 130 / 84; Pulse 88; Resp 16; Temp 98.1; Pulse Ox 100% on R/A; iw 20:59 BP 115 / 57; Pulse 63; Resp 16; Pulse Ox 100% on R/A; jb4 22:51 BP 92 / 67; Pulse 63; Resp 16; Pulse Ox 100% on R/A; jb4 0730 00:30 BP 116 / 79; Pulse 76; Resp 16; Pulse Ox 100% on R/A; jb4 00:30 Pt refusing further vital signs jb4 MDM: 02:20 Differential diagnosis: CVA, TIA, metabolic disorder, drug effects, seizures. Data 7 reviewed: vital signs, nurses notes, lab test result(s), Beta HCG: cardiac enzymes, CBC, drug level(s), acetaminophen, alcohol, salicylate, electrolytes, urinalysis, EKG, radiologic studies, CT scan, plain films. Data interpreted: Pulse oximetry: on room air is 100 %. Interpretation: normal. Counseling: I had a detailed discussion with the patient and/or guardian regarding: the historical points, exam findings, and any diagnostic results supporting the discharge/admit diagnosis, lab results, radiology results, the need for outpatient follow up, to return to the emergency department if symptoms worsen or persist or if there are any questions or concerns that arise at home. Response to treatment: the patient's symptoms have resolved after treatment, the patient's blood pressure is in an acceptable range, mental status has returned to baseline, the patient no longer shows bradycardia, the patient is not short of breath, the patient is not tachycardic, the patient's pain is gone, the patient's temperature has normalized, the patient is now symptom free, patient is well hydrated. 02:22 ED course: Feels better, well appearing, NAD, VSS, no focal neurological deficits. 7 Discussed test results and findings. Patient declines any further care and requests to be discharged from the ER at this time.. 02:25 Patient medically screened. 10/04 21:27 Order name: Acetaminophen; Complete Time: 10/04 21:27 Order name: Basic Metabolic Panel; Complete Time: 10/04 21:27 Order name: CBC with Diff; Complete Time: : 10/04 21:27 Order name: ETOH Level; Complete Time: : 10/04 21:27 Order name: Hepatic Function; Complete Time: 10/04 21:27 Order name: PT-INR; Complete Time: : 10/04 21:27 Order name: Ptt, Activated; Complete Time: : 10/04 21:27 Order name: Salicylate; Complete Time: : 10/04 21:27 Order name: Urine Drug Screen; Complete Time: : 10/04 21:27 Order name: HCG-Quantitative; Complete Time: 10/04 21:27 Order name: COVID-19 SARS RT PCR (Document "Date of Onset" if Symptomatic); Complete [facility] Time: :10/04 21:27 Order name: Troponin High Sensitivity; Complete Time: 10/04 21:27 Order name: Influenza Screen (a \\T\\ B); Complete Time: 23:56 10/05 00:52 Order name: Urine Dipstick-Ancillary; Complete Time: 01:06 [facility] 10/04 21:27 Order name: EKG; Complete Time: :30 10/04 21:27 Order name: EKG - Nurse/Tech; Complete Time: 21:41 10/04 21:27 Order name: IV Saline Lock; Complete Time: 21:58 10/04 21:27 Order name: Labs collected and sent; Complete Time: 22:12 10/04 21:27 Order name: Urine Dipstick-Ancillary (obtain specimen); Complete Time: 01:03 10/04 21:27 Order name: Chest Single View XRAY; Complete Time: 22:21 10/04 21:28 Order name: Heart Tones; Complete Time: 22:51 mh10/04 22:55 Order name: CT Head Brain wo Cont [facility] 10/05 00:53 Order name: Urine Microscopic Only; Complete Time: : ds4 10/05 01:07 Order name: Urine Culture [facility] 10/05 01:15 Order name: Urine Culture EDNM Administered Medications: 10/04 22:25 Drug: NS 0.9% 1000 ml Route: IV; Rate: 1000 ml; Site: left forearm; jb4 23:30 Follow up: Response: No adverse reaction; IV Status: Completed infusion; IV Intake: jb4 1000ml 10/05 02:03 Drug: Rocephin (cefTRIAXone) 1 grams Route: IV; Rate: per protocol; Site: left forearm; jb4 02:41 Follow up: Response: No adverse reaction; IV Status: Completed infusion jb4 02:03 Drug: Potassium Effervescent Tablet 50 mEq Route: PO; jb4 02:41 Follow up: Response: No adverse reaction jb4 Disposition Summary: 10/05/21 02:25 Discharge Ordered Location: Home [facility] Problem: new [facility] Symptoms: have improved [facility] Condition: Stable [facility] Diagnosis - UTI/ Urinary tract infection, site not specified [facility] - Hypokalemia [facility] - 19 weeks gestation of [facility] Followup: [facility] - With: Private Physician - When: 1 - 2 days - Reason: Worsening of condition, Recheck today's complaints, Continuance of care, Re-evaluation by your physician Discharge Instructions: - Discharge Summary Sheet [facility] - Urinary Tract Infection, Adult, [id number] [facility] - Second Trimester of , [id number] [facility] - Hypokalemia [facility] Forms: - Work release form jb4 - Medication Reconciliation Form [facility] - Thank You Letter [facility] - Antibiotic Education [facility] - Prescription Opioid Use [facility] Prescriptions: - Cephalexin 500 mg Oral Capsule - take 1 capsule by ORAL route every 12 hours for 7 days; 14 capsule; Refills: 0, 7 Product Selection Permitted Signatures: Dispatcher [employer] Nadja Masters RN RN iw Bryson, James, RN RN jb4 Samir Carter MD MD 7 Corrections: (The following items were deleted from the chart) 10/04 18:59 18:58 Allergies: vinpap; iw 22:12 21:27 Suicide Screening ([place]) ordered. mh7 jb4
--- NOTE | 2021-10-05 02:25 | ER ---
Nurse's Notes [facility] Name: Mile Wang Age: 26 yrs Sex: Female : 1995 Arrival Date: 10/04/2021 Time: 18:17 Bed 25 Private MD: Diagnosis: UTI/ Urinary tract infection, site not specified;Hypokalemia;19 weeks gestation of Presentation: 10/04 18:56 Chief complaint: Patient states: I went to the store earlier and all of a sudden I had iw someone else's cart and I couldn't drive myself home, I can't really think , my mom was trying to talk to me and I was zoning out , pt denies drug or alcohol use, denies any new medications. I am 19 weeks . Coronavirus screen: At this time, the client does not indicate any symptoms associated with coronavirus-19. Ebola Screen: Patient negative for fever greater than or equal to 101.5 degrees Fahrenheit, and additional compatible Ebola Virus Disease symptoms Patient denies exposure to infectious person. Patient denies travel to an Ebola-affected area in the 21 days before illness onset. No symptoms or risks identified at this time. Initial Sepsis Screen: Does the patient meet any 2 criteria? No. Patient's initial sepsis screen is negative. Does the patient have a suspected source of infection? No. Patient's initial sepsis screen is negative. Risk Assessment: Do you want to hurt yourself or someone else? Patient reports no desire to harm self or others. Onset of symptoms was October 04, 2021. 18:56 Method Of Arrival: Ambulatory iw 18:56 Acuity: BAIRON 3 iw Historical: - Allergies: 18:58 Doxycycline; iw 18:58 Macrobid; iw 18:58 tramadol; iw 18:58 Vimpat; iw - PMHx: 18:58 Anxiety; Bipolar disorder; Psychogenic Seizures; Seizures; stent in gallbladder; Angina iw pectoris; Screenin:00 Abuse screen: Denies threats or abuse. Nutritional screening: No deficits noted. jb4 Tuberculosis screening: No symptoms or risk factors identified. Fall Risk None identified. Assessment: 20:59 General: Appears in no apparent distress. comfortable, Behavior is calm, cooperative, jb4 appropriate for age. Pain: Denies pain. Neuro: Level of Consciousness is awake, alert, obeys commands, Oriented to person, place, time, situation. Cardiovascular: Patient's skin is warm and dry. Respiratory: Airway is patent Respiratory effort is even, unlabored, Respiratory pattern is regular, symmetrical. GI: No signs and/or symptoms were reported involving the gastrointestinal system. : Denies burning with urination, cramping discharge. Derm: Skin is intact, Skin is pink, warm \T\ dry. Musculoskeletal: Circulation, motion, and sensation intact. Range of motion: intact in all extremities. 22:51 Reassessment: Patient appears in no apparent distress at this time. Patient and/or jb4 family updated on plan of care and expected duration. Pain level reassessed. Patient is alert, oriented x 3, equal unlabored respirations, skin warm/dry/pink. 10/05 00:30 Reassessment: Patient appears in no apparent distress at this time. Patient and/or jb4 family updated on plan of care and expected duration. Pain level reassessed. Patient is alert, oriented x 3, equal unlabored respirations, skin warm/dry/pink. 02:30 Reassessment: Patient appears in no apparent distress at this time. Patient and/or jb4 family updated on plan of care and expected duration. Pain level reassessed. Patient is alert, oriented x 3, equal unlabored respirations, skin warm/dry/pink. Vital Signs: 10/04 18:56 BP 130 / 84; Pulse 88; Resp 16; Temp 98.1; Pulse Ox 100% on R/A; iw 20:59 BP 115 / 57; Pulse 63; Resp 16; Pulse Ox 100% on R/A; jb4 22:51 BP 92 / 67; Pulse 63; Resp 16; Pulse Ox 100% on R/A; jb4 10/05 00:30 BP 116 / 79; Pulse 76; Resp 16; Pulse Ox 100% on R/A; jb4 00:30 Pt refusing further vital signs 4 ED Course: 10/04 18:17 Patient arrived in ED. mr 18:58 Triage completed. iw 18:59 Arm band placed on. iw 20:33 Samir Carter MD is Attending Physician. [facility] 20:58 Theodore Woods, JUAN M is Primary Nurse. jb4 21:00 Patient has correct armband on for positive identification. Bed in low position. Call jb4 light in reach. Side rails up X 1. Client placed on continuous cardiac and pulse oximetry monitoring. NIBP monitoring applied. 22:08 Chest Single View XRAY In Process Unspecified. EDMS 10/05 00:38 CT Head Brain wo Cont In Process Unspecified. EDMS 02:55 No provider procedures requiring assistance completed. IV discontinued, intact, jb4 bleeding controlled, No redness/swelling at site. Pressure dressing applied. Administered Medications: 10/04 22:25 Drug: NS 0.9% 1000 ml Route: IV; Rate: 1000 ml; Site: left forearm; jb4 23:30 Follow up: Response: No adverse reaction; IV Status: Completed infusion; IV Intake: jb4 1000ml 10/05 02:03 Drug: Rocephin (cefTRIAXone) 1 grams Route: IV; Rate: per protocol; Site: left forearm; jb4 02:41 Follow up: Response: No adverse reaction; IV Status: Completed infusion jb4 02:03 Drug: Potassium Effervescent Tablet 50 mEq Route: PO; jb4 02:41 Follow up: Response: No adverse reaction jb4 Intake: 10/04 23:30 IV: 1000ml; Total: 1000ml. jb4 Outcome: 10/05 02:25 Discharge ordered by . 7 02:55 Discharged to home ambulatory. jb4 02:55 Condition: stable 02:55 Discharge instructions given to patient, Instructed on discharge instructions, follow up and referral plans. medication usage, Demonstrated understanding of instructions, follow-up care. 02:55 Patient left the ED. jb4 Signatures: Dispatcher [employer] [facility] NemesioBeth mr Nadja Nick RN RN iw Bryson, James, RN RN jb4 Samir Carter MD MD 7 Corrections: (The following items were deleted from the chart) 10/04 18:59 18:58 Allergies: vinpap; iw iw 19:00 18:56 Chief complaint: Patient states: I went to the store earlier and all of a sudden iw I had someone else's cart and I couldn't drive myself home, I can't really think , my mom was trying to talk to me and I was zoning out , pt denies drug or alcohol use, denies any new medications iw 10/05 04:01 03:52 Patient left the ED. jb4 jb4
[2021-10-05 04:11] VITALS: TEMP 98.1; O2SAT 100
[2021-10-05 04:20] VITALS: BP 116/79
--- NOTE | 2021-10-06 16:57 | EKG ---
Test Date: 2021-10-04 Test Time: 21:41:09 Temperature Control Inspector: JESUS MEASUREMENT RESULTS: Intervals: Rate: 67 OR: 178 QRSD: 84 QT: 416 QTc: 439 Thermal: P: 17 OR: 178 QRS: 77 T: 29 INTERPRETIVE STATEMENTS: Normal sinus rhythm Normal ECG Compared to ECG 05/15/2021 09:55:18 T-wave abnormality no longer present Electronically Signed On 10-06-21 16:57:05 CDT by Yuriy Phillips
--- NOTE | 2021-10-07 09:29 | RAD REPORT ---
EXAM DESCRIPTION: CT - Head Brain Wo Cont - 10/05/2021 2:27 am CLINICAL HISTORY: Mental status change, unknown cause COMPARISON: CT Head/Brain Without Contrast 08/29/2021 TECHNIQUE: Head/brain axial images acquired without contrast. Coronal and sagittal reformats created . Exam performed according to departmental dose-optimization program which includes automated exposur e control, adjustment of mA and/or kV according to patient size, and/or use of iterative reconstructi on technique. FINDINGS: No midline shift, mass effect, intracranial hemorrhage, or hydrocephalus. Brain parenchyma unremarkable. Paranasal sinuses clear. Mastoid air cells clear. No skull fracture or significant skull lesion. IMPRESSION: Unremarkable CT head/brain without contrast. Electronically signed by: Johan Underwood MD 10/05/2021 12:51 AM CDT Due to temporary technical issues with the PACS/Fluency reporting system, reports are being signed by the in house radiologists without review as a courtesy to insure prompt reporting. The interpreting radiologist is fully responsible for the content of the report.
== END 2021-10-05 03:52 | disposition home or self-care (01) ==
LOC: ER 18:15
DX: O23.42 Unspecified infection of urinary tract in pregnancy, second trimester (principal); N39.0 Urinary tract infection, site not specified; O99.282 Endocrine, nutritional and metabolic diseases complicating pregnancy, second trimester; E87.6 Hypokalemia; Z3A.19 19 weeks gestation of pregnancy; Z88.1 Allergy status to other antibiotic agents; Z88.5 Allergy status to narcotic agent; Z88.8 Allergy status to other drugs, medicaments and biological substances; Z20.822 Contact with and (suspected) exposure to COVID-19
CPT/HCPCS: 96365; 96361; 93005; 87088; 85025; 87086; 80048; 36415; 80320; 80329 ×2; 85610; 80076; 85730; 84702; 84484; 80307; 87804 ×2; 70450; 71045; 99283; U0003; J7030; 81003; 81015

== ENCOUNTER 2021-11-16 09:18 | Emergency (ER) | payer BC, OTHER ==
--- OUTSIDE RECORDS SUMMARY | 2021-11-16 09:23 | XMS REPORT | Continuity of Care Document ---
:1995 Author Organization [facility] t Address [address] [place] [address] Care Team Providers Name Role Phone Asked, No Pcp Primary Care Physician Unavailable JOANNE PARKINSON Attending Clinician Unavailable Enedina Vasquez Attending Clinician [phone] Monique Gonzalez Attending Clinician JOANNE PARKINSON Admitting Clinician Unavailable MIRELLA STANFORD Admitting Clinician Unavailable Payers Payer Name Policy Type Policy Number Effective Date Expiration Date S ource Problems Condition Condition Condition Status Onset Resolution Last Treating Co mments Source Name Details Category Date Date Treatment Clinician Date Elevated Elevated Disease Active Unive rs blood blood 8-09 ity of pressure pressure 00:00: [place] reading reading 00 Medical without without Branch diagnosis diagnosis of of hypertensi hypertensi on on Atypical Atypical Disease Active Overview: Un aubree [...] Active U nivers n of n of 505 ity of [place] [address] [facility] History of History of Disease Active Overview : Univers anxiety anxiety 5-05 Formattin ity o f 00:00: g of this note Medical might be Branch different from the original. Reports on buspirone Multiparit Multiparit Disease Active U nivers y y 5-05 ity of 00:00: Medical Branch Obesity in Obesity in Disease Active U nivers 5 ity of 00:00: [facility] Branch Frequent Frequent Disease Active Unive rs UTI UTI 8- ity of 00:: Medical Branch Seizure Seizure Disease Active Overview: Univ ers disorder disorder 10-01 Formattin ity of in in 00:00: g of this [place] [address] [facility] might be Branch different from the original. Last episode 2 months ago , not on meds Abdominal Abdominal Disease [facility] Abnormal Abnormal Disease Active [facility] UTI UTI Disease Active Univers symptoms symptoms 4-01 ity of 00:00: Medical Branch Abnormal Abnormal Disease Active Unive rs EKG EKG 8-02 ity of 00:00: [facility] Branch Vaginal Vaginal Disease Active Univers discharge discharge 7-03 ity of 00:00: Medical Branch Chlamydia Chlamydia Disease Active Uni vers 5-10 ity of 00:00: Medical Branch Bipolar Bipolar Disease Active Overview: Univ ers disease in disease in 07-15 Formatt[place] ity of 00:00: [place] of [place] 00 note Medical might be Branch different from the original. D/c lithium 3 weeks ago Seizure Seizure Disease Active 2015-03 Overview: Univ ers disorder disorder - Formattin ity of 00:00: g of this [place] note Medical might be Branch different from [...] 00:00: [place] reaction 00 Medical s Branch Nitrofur Drug Active Anxiety 2020- [facility] Monohyd/ 00:00: Medical M-Cryst 00 Center [place] Drug Active Hives [facility] 00:[facility]: Medical 00 Center LACOSAMI Allergy Active High Hives [facility] DE [facility]16 [facility] 00:00: Medical 00 Center NITROFUR Allergy Active Med Anxiety [facility] ANTOIN 7[facility]16 [facility] MONOHYD/ 00:00: Medical M-CRYST 00 Center Doxycycl Drug Active Hives, Rash 2020-[address] ine Allergy 2-12 [facility] 00:[facility]: Medical 00 Center Tramadol Drug Active Other (See 2020-[address] Allergy Comments) 2-12 [facility] 00:00: Medical 00 Center DOXYCYCL Allergy Active High Hives 2020-[address] [facility] INE 2-12 [facility] 00:00: Medical 00 Center TRAMADOL Allergy Active Other 2020-[address] [facility] 2[facility]12 [facility] 00:[facility]: Medical 00 Center Doxycycl Propensi Active Other - See 2020-0 seizures Univers ine ty to comments 2-12 ity of adverse 00:00: [place] reaction 00 Medical s Branch Tramadol Propensi Active Other - See 2020-0 seizures Univers ty to comments 2-12 ity of adverse 00:00: [place] reaction 00 Medical s Branch Social History Social Habit Start Date Stop Date Quantity Comments Source ASSERTION 2021-06-06 University 00:00:00 [facility] Branch History SDOH [facility] Alcohol Std Medical Cente r Drinks History SDOH [facility] Alcohol Binge Medical [facility] History SDOH [facility] Alcohol Comment Medical C enter Exposure to 2021-11-02 2021-11-12 Not sure [facility] SARS-CoV-2 00:00:00 15:06:00 [facility] (event) Branch Alcohol intake 2020-09-24 2020-09-24 Ex-drinker [facility] 00:[facility]00 00:00:00 (finding) Medical Center History SDOH 2020-09-22 2020-09-[address] [facility] Alcohol Frequency 00:00:00 00:00:00 Medical Center Tobacco use and 2020-09-21 2020-09-[address] [facility] [address] [facility] exposure 00:00:00 00:00:00 Medical Center Sex Assigned At [birth year] [facility] 00:00:00 00:00:00 Smoking Status Start Date Stop Date Source Never smoked tobacco [facility] Medications Ordered Filled Start Stop Current Ordering Indication Dosage Frequency Signature Comments Components Source Medication Medication Date Date Medication? Clinician (SIG) Name Name lamoTRIgine Yes 100mg Take 100 U nivers (LAMICTAL) 8-29 mg by ity of 100 mg 15:28: mouth at [place] tablet 29 bedtime. Medical 25 qAM Branch busPIRone Yes [id number] 18.75mg Take 2.5 Univers 7.5 mg 5-12 tablets by ity of tablet 00:00: mouth 3 [place] 00 (three) Medical times Branch daily. Yes [id number] 1{tbl} Take 1 U nivers multivitami 5-05 tablet by ity of n ( 00:00: mouth [place] VITAMIN) 00 daily. Medical tablet Branch lithium 600 Yes bipolar 600mg QD Take [address] MG capsule 7-19 disorder in mg by L ukes 17:56: remission mouth Medical 35 every Center morning . busPIRone Yes 10mg Q.5D Take [address] (BUSPAR) 10 7-19 by mouth 2 [facility] MG tablet 17:56: (two) Medical 35 times Center daily. lithium 300 Yes bipolar 900mg QD Take [address] MG capsule 7-15 disorder in mg by L ukes 00:00: remission mouth Medical 00 nightly. Center Immunizations Ordered Filled Immunization Date Status Comments Sour e Immunization Name Name HPV9 2019-12-30 Completed [facility] 00:00:00 [facility] HPV9 2019-09-27 Completed University 00:00:00 [facility] HPV9 2019-05-17 Completed University of 00:00:00 [facility] TDAP (ADACEL) 2018-02-15 Completed University of VACCINE 00:00:00 [facility] Influenza Virus 2017-12-14 Completed [facility] y of Vaccine Quad IM 3+ 00:00:00 [facility] Varicella 2016-05-24 Completed [facility] (varivax)(chicken 00:00:00 [facility] edical pox) Branch TDAP 2016-04-03 Completed University 00:00:00 [facility] Rho (d) Immune 2016-03-27 Completed [facility] Globulin 00:00:00 [facility] Vital Signs Vital Name Observation Time Observation Value Comments Source HEIGHT 2020-09-22 06:00:00 152.4 cm WEIGHT 2020-09-22 06:00:00 80.8 kg HEIGHT 2020-09-21 19:00:00 152.4 cm WEIGHT 2020-09-21 19:00:00 80.786 kg Systolic blood 2021-11-12 20:07:00 135 mm[Hg] Univer sity of pressure [facility] Diastolic blood 2021-11-12 20:07:00 73 mm[Hg] Unive rsity of [facility] Heart rate 2021-11-12 20:07:00 76 /min [facility] Body temperature 2021-11-12 20:07:00 36.44 [facility] Respiratory rate 2021-11-12 20:07:00 18 /min [facility] height 2021-11-12 20:07:00 162.6 cm [facility] Body weight 2021-11-12 20:07:00 93.044 kg [facility] BMI 2021-11-12 20:07:00 35.21 kg/m2 [facility] HEIGHT 2020-09-22 06:00:00 152.4 cm WEIGHT 2020-09-22 06:00:00 80.8 kg HEIGHT 2020-09-21 19:00:00 152.4 cm WEIGHT 2020-09-21 19:00:00 80.786 kg Procedures Procedure Date / Time Performed Performing Clinician Sourc e POCT URINALYSIS 2021-11-12 20:07:00 Enedina [facility] Plan of Care Planned Activity Planned Date Details Comments Source Future Scheduled 2028-02-16 DTAP/TDAP/TD VACCINES [facility] Test 00:00:00 (3 - Td or Tdap) Medical [facility] [code = DTAP/TDAP/TD VACCINES (3 - Td or Tdap)] Future Scheduled 2021-11-09 [facility]FLUENZA VACCINE [facility] 06:02:25 [code = INFLUENZA VACCINE] Future Scheduled 2021-11-09 HE[facility]IT[facility] 06:02:25 (1 of 3 - 3-dose series) [code = HEPATITIS B VACCINES (1 of 3 - 3-dose series)] Future Scheduled 2021-11-09 COVID-19 VACCINE (#1) [facility] Test 06:02:25 [code = COVID-19 VACCINE (#1)] Future Scheduled 2021-11-09 Screening for [facility] Test 06:02:25 Chlamydia trachomatis (procedure) [code = 800947775] Future Scheduled 2021-11-09 Hepatitis C screening [facility] Test 06:02:25 (procedure) [code = 539133222] Future Scheduled 2021-11-09 Screening for [facility] Test 06:02:25 malignant neoplasm of cervix (procedure) [code = 257696453] Future Scheduled 2021-11-[address] [facility] Test 00:00:00 (#1) [code = [facility] INFLUENZA VACCINE (#1)] Future Scheduled 2021-03-[address] [facility] Test 00:00:00 (12+) [code = [facility] DEPRESSION SCREENING (12+)] Future Scheduled [address] [facility] Test 00:00:00 malignant neoplasm of Medica l Center cervix (procedure) [code = 864706157] Future Scheduled [address] [facility] Test 00:00:00 (procedure) [code = Medical Center 14480251] Future Scheduled 2015 HEPATITIS C SCREENING [facility] Test 00:00:00 [code = HEPATITIS C Medical Center SCREENING] Future Scheduled 1995 COVID-19 VACCINE (#1) [facility] Test 00:00:00 [code = COVID-[address] VACCINE (#1)] Future Scheduled CHLAMYDIA SCREENING [facility] [code = CHLAMYDIA SCREENING] Future Scheduled COVID-19 VACCINE (1) [facility] [code = COVID-19 VACCINE (1)] Future Scheduled [facility] (procedure) [code = 479003311] Future Scheduled Screening for [facility] Test malignant neoplasm of cervix (procedure) [code = 912371570] Future Scheduled INFLUENZA VACCINE [facility] [code = INFLUENZA VACCINE] Encounters Start End Encounter Admission Attending Care Care Encounter Source Date/Time Date/Time Type Type Clinicians Facility Department ID 2020-09-21 Inpatient ER Formerly [facility] [id number] [facility] 19:23:00 JOANNE 2021-11-12 2021-11-12 Routine [place], [facility] [id number] [facility] 14:45:00 15:00:00 Enedina C FOOD SERVICE [id number] ity of Visit REGIONAL [id number] Dwayne as MATERNAL [id number] Med ical & CHILD 107 [facility] 2020-10-15 2020-10-15 Telephone DUANE Nick [id number] 00:00:00 00:00:00 Monique N FOOD SERVICE [id number] REGIONAL [id number] MATERNAL [id number] & CHILD 107 [facility] 2020-10-12 2020-10-12 Telephone DUANE Nick [id number] 00:00:00 00:00:00 Monique N FOOD SERVICE [id number] REGIONAL [id number] MATERNAL [id number] & CHILD 107 [facility] 2020-10-11 2020-10-11 Telephone Sandoval OKSONJA [id number] 00:00:00 00:00:00 Monique N FOOD SERVICE [id number] REGIONAL [id number] MATERNAL [id number] & CHILD 107 [facility] 2020-10-09 2020-10-09 Office [facility] [id number] 15:44:08 16:29:53 Visit Monique Rabia FOOD SERVICE [id number] [facility] [id number] MATERNAL [id number] & CHILD [address] [place] [address] Results Test Description Test Time Test Comments Results Result Comments Source POCT URINALYSIS W SPECIFIC GRAVITY 2021-11-12 20:08:00 Test Item Value Reference Range Interpretation Comme nts POCT U SP GRAV (test code = 3255) . 1.005-1.025 POCT PH U (test code = 3254) . 5-8 POCT U LEUK EST (test code = 3263) . Negative - Negative POCT U NIT (test code = 3262) . Negative - Negative POCT U PROT (test code = 3259) Trace Negative - Negative POCT U GLU (test code = 3256) Neg Negative - Negative POCT U KETONE (test code = 3258) . Negative - Negative POCT U UROBILI (test code = 3260) . 0.2-1 POCT U BILI (test code = 3261) . Negative - Negative POCT U BLD (test code = 3257) . Negative - Negative POCT U COLOR (test code = 3266) . POCT U APPEAR (test code = 3267) [facility]2021-07-19 18:22:00 Test Item Value Reference Range Interpretation Comments LITHIUM LEVEL (BEAKER) 0.8 mmol/L 0.8-1.2 (test code = 630) SCAN RESULT (test code = See Scanned Report [id number]) [place], [id number] 14:13:01Reason for exam:->abnormal imaging [facility] STEPHAN VALORIE : 1995 Sex: FFluoroscopic unit utilized for a procedure performed in the OR. No interpretation was requested. Refer to the operative report for findings. Refer to PACS for patient radiation dose information.COMPREHENSIVE METABOLIC [id number] 06:43:00 Test Item Value Reference Range Interpretation [...] S NOT APPLICABLE FOR DIALYSIS PATIEN TS. [employer] Supervisor ID - MADISON MCBC (HEMOGRAM ONLY)2020-09-24 06:04:00 [...] (BEAKER) (test code = 413) COMPREHENSIVE METABOLIC [id number] 07:06:00 Test Item Value Reference Range Interpretation [...] S NOT APPLICABLE FOR DIALYSIS PATIEN TS. [employer] Supervisor ID - PIAYA LCBC (HEMOGRAM ONLY)2020-09-23 06:47:00 [...] (BEAKER) (test code = 413) COMPREHENSIVE METABOLIC [id number] 08:27:00 Test Item Value Reference Range Interpretation [...] S NOT APPLICABLE FOR DIALYSIS PATIEN TS. [employer] Supervisor ID - MADISON [id number] 08:27:00 Test Item Value Reference Range Interpretation Comments MAGNESIUM (BEAKER) (test code = 2.4 mg/dL 1.6-2.6 627) [employer] Supervisor ID - MADISON MPROTHROMBIN [id number] 07:59:00 Test Item Value Reference Range Interpretation Comments PROTIME (BEAKER) 13.0 seconds 11.9-14.2 (test code = 759) INR (BEAKER) (test 1.00 See_Comment [Automat ed message] code = 370) The system [employer] generated this result transmitted ref erence range: <=5.90. The reference range was not used to int erpret this result as normal/abnormal . RECOMMENDED COUMADIN/WARFARIN INR THERAPY RANGESSTANDARD DOSE: 2.0 - 3.0 Includes: PROPHYLAXIS for venous thrombosis, systemic embolization; TREATMENT for venous thrombosis and/or pulmonary embolus.HIGH RISK: Target INR is 2.5-3.5 for patients with mechanical heart valves.CBC W/PLT COUNT & AUTO [id number] 07:49:00 Test Item Value Reference Range Interpretation [...] 0-1 H PERCENT (BEAKER) (test code = 2800)
[2021-11-16 09:33] LABS: Urine Blood Negative (Negative); Urine Glucose Negative (Negative); Urine Protein Negative (Negative); Urine pH 8.5 (5.0-7.0)
[2021-11-16 09:58] LABS: Absolute Lymphocytes (CBC) 2.1 K/uL (0.7-4.9); Hematocrit 35.8 % (36.0-45.0); Lymphocytes % 19.7 % (15.3-44.8); MCV 84.5 fL (80-100); MPV 8.5 fL (7.6-11.3); RBC Red Blood Cell Count 4.24 M/uL (3.86-4.86)
[2021-11-16 11:02] LABS: Platelet Estimate ADEQ; White Blood Cell Scan OK (OK)
[2021-11-16 11:03] LABS: Blood Morphology Comment NOT SEEN (NOT SEEN)
--- NOTE | 2021-11-16 11:26 | RAD REPORT ---
EXAM DESCRIPTION: US - OB Limited - 11/16/2021 11:08 am CLINICAL HISTORY: ABD CRAMPING, age. COMPARISON: <Comparisons> FINDINGS: A single breech presenting gestation is identified. Heart rate normal. The intracranial contents and spine are grossly normal. A normal stomach bubble is noted. A nor mal fluid-filled urinary bladder seen without pelviectasis. The cord appears three-vessel. Four -chamber view of the heart is grossly unremarkable for gestational age. No gross abnormalities are id entifiable for gestational age. measurements are as follows: BPD:6 Centimeters 24 week 4 day HC:22.9 Centimeters 24 week 6 day AC:22.4 Centimeters 26 week 5 day HL:4.1 Centimeters 24 week 5 day FL:4.2 Centimeters 23 week 5 day The estimated gestational age (EGA) is with an VICTORIA of. The placenta is posterior in location. No placenta previa. The amniotic fluid index is 15.4 cm, with largest pocket 5 cm. The maternal adnexa show no worrisome findings. IMPRESSION: 1. Single, breech gestation measuring 24 week 6 day and an VICTORIA of the 03/02/2022. 2. No gross abnormalities are identifiable. 3. Posterior placenta without previa 4. Amniotic fluid index is15.4 cm, with largest pocket5 cm -- considered within normal limits.
[2021-11-16 11:57] LABS: Albumin 2.6 g/dL (3.4-5.0); Bilirubin Total 0.2 mg/dL (0.2-1.0); Potassium 3.3 mmol/L (3.5-5.1); Protein, Total 6.1 g/dL (6.4-8.2)
--- NOTE | 2021-11-16 12:03 | EDPHYS ---
Physician Documentation [facility] Name: Mile Wang Age: 26 yrs Sex: Female : 1995 Arrival Date: 11/16/2021 Time: 09:21 Bed 13 Private MD: ED Physician Zen Villanueva HPI: 11/16 09:35 This 26 yrs old Female presents to ER via Ambulatory with complaints of jl9 Weakness, Headache, and abdominal cramping x1 day. 09:35 The patient presents to the emergency department with weakness of the entire body, jl9 generalized weakness, that is mild. Onset: The symptoms/episode began/occurred yesterday. Associated signs and symptoms: Pertinent positives: headache, weakness. Severity of symptoms: Pain is currently a / 10. PORT DRIER: 09:47 3, Full Term 2, LMP 06/06/2021 jg9 Historical: - Allergies: 09:29 Doxycycline; kr3 09:29 Macrobid; kr3 09:29 tramadol; kr3 09:29 Vimpat; kr3 - PMHx: 09:29 Anxiety; Bipolar disorder; Psychogenic Seizures; Seizures; kr3 09:49 angina pectoris; stent in gallbladder; jg9 - PSHx: 09:29 Cholecystectomy; Tonsillectomy; kr3 - Immunization history:: Adult Immunizations up to date, Client reports receiving the 2nd dose of the Covid vaccine. - Social history:: Smoking status: . ROS: 09:36 Constitutional: Negative for fever, chills, and weight loss, Eyes: Negative for injury, jl9 pain, redness, and discharge, ENT: Negative for injury, pain, and discharge, Neck: Negative for injury, pain, and swelling, Cardiovascular: Negative for chest pain, palpitations, and edema, Respiratory: Negative for shortness of breath, cough, wheezing, and pleuritic chest pain. 09:36 Back: Negative for injury and pain, : Negative for injury, bleeding, discharge, and swelling, MS/Extremity: Negative for injury and deformity, Skin: Negative for injury, rash, and discoloration. 09:36 Psych: Negative for depression, anxiety, suicide ideation, homicidal ideation, and hallucinations, Allergy/Immunology: Negative for hives, rash, and allergies, Endocrine: Negative for neck swelling, polydipsia, polyuria, polyphagia, and marked weight changes, Hematologic/Lymphatic: Negative for swollen nodes, abnormal bleeding, and unusual bruising. 09:36 Abdomen/GI: Positive for abdominal pain, abdominal cramps. 09:36 Neuro: Positive for headache, weakness. Exam: 09:37 Constitutional: This is a well developed, well nourished patient who is awake, alert, jl9 and in no acute distress. Head/Face: Normocephalic, atraumatic. Eyes: Pupils equal round and reactive to light, extra-ocular motions intact. Lids and lashes normal. Conjunctiva and sclera are non-icteric and not injected. Cornea within normal limits. Periorbital areas with no swelling, redness, or edema. ENT: Mucous membranes moist. Neck: Trachea midline, no thyromegaly or masses palpated, and no cervical lymphadenopathy. Supple, full range of motion without nuchal rigidity, or vertebral point tenderness. No Meningismus. Chest/axilla: Normal chest wall appearance and motion. Nontender with no deformity. No lesions are appreciated. Cardiovascular: Regular rate and rhythm with a normal S1 and S2. No gallops, murmurs, or rubs. Normal PMI, no JVD. No pulse deficits. Respiratory: Lungs have equal breath sounds bilaterally, clear to auscultation and percussion. No rales, rhonchi or wheezes noted. No increased work of breathing, no retractions or nasal flaring. 09:37 Back: No spinal tenderness. No costovertebral tenderness. Full range of motion. 09:37 Skin: Warm, dry with normal turgor. Normal color with no rashes, no lesions, and no evidence of cellulitis. MS/ Extremity: Pulses equal, no cyanosis. Neurovascular intact. Full, normal range of motion. Neuro: Awake and alert, GCS 15, oriented to person, place, time, and situation. Cranial nerves II-XII grossly intact. Motor strength 5/5 in all extremities. Sensory grossly intact. Cerebellar exam normal. Normal gait. Psych: Awake, alert, with orientation to person, place and time. Behavior, mood, and affect are within normal limits. 09:37 Abdomen/GI: Inspection: abdomen appears normal, Bowel sounds: normal, Palpation: nontender, Rectal exam: Indicators: 09:37 : Pelvic Exam: The exam is refused by the patient/guardian. The risks and consequences are understood by the patient, Gravid exam: Vital Signs: 09:27 BP 130 / 75; Pulse 84; Resp 18; Temp 98.0; Pulse Ox 100% on R/A; Weight 92.99 kg; kr3 Height 5 ft. 4 in. (162.56 cm); 10:00 BP 108 / 66; Pulse 87; Resp 16 S; Pulse Ox 93% on R/A; jg9 11:30 BP 106 / 66; Pulse 78; Resp 16 S; Pulse Ox 93% on R/A; jg9 09:27 Body Mass Index 35.19 (92.99 kg, 162.56 cm) kr3 MDM: 09:23 Patient medically screened. jl 09:38 Data reviewed: vital signs, nurses notes. 12:01 Counseling: I had a detailed discussion with the patient and/or guardian regarding: the historical points, exam findings, and any diagnostic results supporting the discharge/admit diagnosis, lab results, radiology results, the need for outpatient follow up, to return to the emergency department if symptoms worsen or persist or if there are any questions or concerns that arise at home. 11/16 09:34 Order name: Urine Dipstick-Ancillary; Complete Time: 10:46 EDMS 11/16 09:35 Order name: CBC with Diff; Complete Time: 11:23 11/16 09:35 Order name: CMP; Complete Time: 12:01 11/16 09:35 Order name: Lipase; Complete Time: 12:01 11/16 09:35 Order name: Beta hcg; Complete Time: 12:01 11/16 09:35 Order name: SARS-COV-2 RT PCR (Document "Date of Onset" if Symptomatic); Complete Time: 11:23 11/16 09:35 Order name: IV Saline Lock; Complete Time: 10:04 11/16 09:35 Order name: Labs collected and sent; Complete Time: 09:44 11/16 09:35 Order name: OB Limited US; Complete Time: 11:30 11/16 09:35 Order name: Urine Dipstick-Ancillary (obtain specimen); Complete Time: 09:39 11/16 09:35 Order name: Flu; Complete Time: 11:23 /10 11:03 Order name: CBC Smear Scan; Complete Time: 11:23 EDMS Administered Medications: 12:03 Drug: Potassium Effervescent Tablet 25 mEq Route: PO; jg9 12:22 Follow up: Response: No adverse reaction jg9 Disposition Summary: 11/16/21 12:02 Discharge Ordered Location: Home jl9 Condition: Stable jl9 Diagnosis - UTI/ Urinary tract infection, site not specified jl9 Followup: jl9 - With: Private Physician - When: 1 - 2 days - Reason: Recheck today's complaints, Continuance of care, Re-evaluation by your physician Discharge Instructions: - Discharge Summary Sheet jl9 - Urinary Tract Infection, Adult, [id number] jl9 Forms: - Medication Reconciliation Form jl9 - Thank You Letter jl9 - Work release form jg9 - Antibiotic Education jl9 - Prescription Opioid Use jl9 Prescriptions: - Cephalexin 250 mg Oral Capsule - take 1 capsule by ORAL route every 6 hours for 5 days; 20 capsule; Refills: 0, jl9 Product Selection Permitted Signatures: Dispatcher [employer] Akosua Garcia, RN RN jg9 Morgan Dumont jl9 Maria G Huynh RN RN kr3
--- NOTE | 2021-11-16 12:03 | ER ---
Nurse's Notes [facility] [place] Name: Mile Wang Age: 26 yrs Sex: Female : 1995 Arrival Date: 11/16/2021 Time: 09:21 Bed 13 Private MD: Diagnosis: UTI/ Urinary tract infection, site not specified Presentation: 11/16 09:27 Chief complaint: Patient states: headache and abdominal cramping x 1 day, 25 week kr3 . Coronavirus screen: Vaccine status: Patient reports receiving the 2nd dose of the covid vaccine. Client denies travel out of the [place] in the last 14 days. Ebola Screen: Patient denies travel to an Ebola-affected area in the 21 days before illness onset. No acute neurological deficit is noted. Pre-hospital glucose is not applicable to this patient. Initial Sepsis Screen: Does the patient meet any 2 criteria? No. Patient's initial sepsis screen is negative. Does the patient have a suspected source of infection? No. Patient's initial sepsis screen is negative. 09:27 Method Of Arrival: Ambulatory kr3 09:27 Acuity: BAIRON 3 kr3 09:29 Risk Assessment: Do you want to hurt yourself or someone else? Patient reports no kr3 desire to harm self or others. 09:46 Onset of symptoms is unknown. jg9 Triage Assessment: 09:30 The onset of the patients symptoms was November 15, 2021 at 08:00. General: Appears in kr3 no apparent distress. comfortable, Behavior is calm, cooperative, appropriate for age. 09:46 Pain: Complains of pain in forehead, right lower quadrant and left lower quadrant Pain jg9 currently is 7 out of 10 on a pain scale. [employer]: 09:47 3, Full Term 2, LMP 06/06/2021 jg9 Stroke Activation: Symptom onset > 6 hours Physician: Stroke Attending; Name: ; Notified At: ; Arrived At: Physician: Chief Stroke Resident; Name: ; Notified At: ; Arrived At: Physician: Stroke Resident; Name: ; Notified At: ; Arrived At: Physician: ED Attending; Name: ; Notified At: ; Arrived At: Physician: ED Resident; Name: ; Notified At: ; Arrived At: Historical: - Allergies: 09:29 Doxycycline; kr3 09:29 Macrobid; kr3 09:29 tramadol; kr3 09:29 Vimpat; kr3 - PMHx: 09:29 Anxiety; Bipolar disorder; Psychogenic Seizures; Seizures; kr3 09:49 angina pectoris; stent in gallbladder; jg9 - PSHx: 09:29 Cholecystectomy; Tonsillectomy; kr3 - Immunization history:: Adult Immunizations up to date, Client reports receiving the 2nd dose of the Covid vaccine. - Social history:: Smoking status: . Screenin:45 Abuse screen: Denies threats or abuse. Denies injuries from another. Nutritional jg9 screening: No deficits noted. Tuberculosis screening: No symptoms or risk factors identified. Fall Risk None identified. Assessment: 10:00 Reassessment: No changes from previously documented assessment. Patient and/or family jg9 updated on plan of care and expected duration. Pain level reassessed. Patient is alert, oriented x 3, equal unlabored respirations, skin warm/dry/pink. Vital Signs: 09:27 BP 130 / 75; Pulse 84; Resp 18; Temp 98.0; Pulse Ox 100% on R/A; Weight 92.99 kg; kr3 Height 5 ft. 4 in. (162.56 cm); 10:00 BP 108 / 66; Pulse 87; Resp 16 S; Pulse Ox 93% on R/A; jg9 11:30 BP 106 / 66; Pulse 78; Resp 16 S; Pulse Ox 93% on R/A; jg9 09:27 Body Mass Index 35.19 (92.99 kg, 162.56 cm) kr3 ED Course: 09:21 Patient arrived in ED. rg4 09:23 Morgan Dumont is PHCP. jl9 09:23 Zen Villanueva MD is Attending Physician. jl9 09:25 Akosua Keene, JUAN M is Primary Nurse. jg9 09:25 Patient placed in an exam room, on a stretcher. kr3 09:29 Triage completed. kr3 09:30 Missed attempt(s): 22 gauge in right antecubital area. jg9 09:45 Arm band placed on right wrist. jg9 09:46 Patient has correct armband on for positive identification. Bed in low position. Call jg9 light in reach. 10:15 Inserted saline lock: 22 gauge in left hand, using aseptic technique. Blood collected. jg9 11:10 OB Limited US In Process Unspecified. EDMS 11:47 Awaiting lab results. jg9 12:21 No provider procedures requiring assistance completed. jg9 12:21 IV discontinued. jg9 Administered Medications: 12:03 Drug: Potassium Effervescent Tablet 25 mEq Route: PO; jg9 12:22 Follow up: Response: No adverse reaction jg9 Medication: 12:21 VIS not applicable for this client. jg9 Outcome: 12:02 Discharge ordered by . danielito 12:21 Discharged to home ambulatory. jg9 12:21 Condition: stable 12:21 Discharge instructions given to patient, Instructed on discharge instructions, follow up and referral plans. Demonstrated understanding of instructions, follow-up care, Prescriptions given X 1. 12:22 Patient left the ED. jg9 Signatures: Dispatcher [employer] Oneyda Ochoa rg4 Akosua Keene RN RN jg9 Morgan Dumont jl9 Maria G Huynh, RN RN kr3 Corrections: (The following items were deleted from the chart) 09:31 09:30 Patient placed in an exam room, on a stretcher, kr3 kr3
[2021-11-16] MEDS ORDERED: POTASSIUM 25 MEQ EFFERV TAB ONE (12:13)
[2021-11-16 12:46] VITALS: TEMP 98
[2021-11-16 12:49] VITALS: O2SAT 93
[2021-11-16 12:51] VITALS: BP 106/66
== END 2021-11-16 12:22 | disposition home or self-care (01) ==
LOC: ER 09:18
DX: O23.42 Unspecified infection of urinary tract in pregnancy, second trimester (principal); N39.0 Urinary tract infection, site not specified; Z3A.24 24 weeks gestation of pregnancy; Z20.822 Contact with and (suspected) exposure to COVID-19; Z88.1 Allergy status to other antibiotic agents; Z88.5 Allergy status to narcotic agent; Z88.8 Allergy status to other drugs, medicaments and biological substances
CPT/HCPCS: 85025; 36415; 84702; 81003; 83690; 80053; 87804 ×2; 76815; 99284; U0003

== ENCOUNTER 2021-12-01 09:51 | Emergency (ER) | payer BC, OTHER ==
--- OUTSIDE RECORDS SUMMARY | 2021-12-01 09:57 | XMS REPORT | Continuity of Care Document ---
:[address] [facility] t Address [address] [place] [address] Care Team Providers Name Role Phone Asked, No Pcp Primary Care Physician Unavailable JOANNE PARKINSON Attending Clinician Unavailable ENEDINA SOLIS Attending Clinician Unavailable ARELI PATEL Attending Clinician Unavailable Areli Patel DO Attending Clinician Vijaya Wyman RN Attending Clinician Unavailable Ultrasound, Ang-Mfm Attending Clinician Unavailable Trever Hernandez Attending Clinician JoseZen townsend DO Attending Clinician TREVER KATZ Attending Clinician Unavailable Enedina Vasquez Attending Clinician [phone] Doctor Unassigned, Brady Attending Clinician Unavailable Monique Gonzalez Attending Clinician JOANNE PARKINSON Admitting Clinician Unavailable MIRELLA STANFORD Admitting Clinician Unavailable Payers Payer Name Policy Type Policy Number Effective Date Expiration Date Piyush sofia [facility] [id number] 2021 00:00:00 [facility] [id number] 2017 CHOICE [place] 00:00:00 Problems Condition Condition Condition Status Onset Resolution Last Treating Co mments Source Name Details Category Date Date Treatment Clinician Date BMI BMI Disease Active Univers 35.0-35.9, 35.0-35.9, 9-23 it y of adult adult 00:00: Medical Branch Elevated Elevated Disease Active Unive rs blood [...] of high[place] [facility] Branch History of History of Disease Active Overview : Univers anxiety anxiety 5-05 Formattin ity o f 00:00: g of this 00 note Medical might be Branch different from the original. Reports on buspirone Multiparit Multiparit Disease Active U nivers y y 5-05 ity of 00:00: Medical Branch Obesity in Obesity in Disease Active U nivers 5-05 ity of 00:: Medical Branch Frequent Frequent Disease Active Unive rs UTI UTI 8-03 ity of 00:00: [place] [facility] Seizure Seizure Disease Active Overview: Univ ers disorder disorder 7-26 Formattin ity of in in 00:00: g of this [place] 00 note [facility] might be Branch different from the original. Last episode 2 months ago , not on meds Abdominal Abdominal Disease [facility] Abnormal Abnormal Disease Active [facility] 00:[facility]: [facility] 00 Center UTI UTI Disease Active Univers symptoms symptoms 4-01 ity of 00:00: [place] 00 Medical Branch Abnormal Abnormal Disease Active Unive rs EKG EKG 10-08 ity of 00:00: [place] 00 Medical Branch Anxiety Anxiety Disease Active Univers during during 09-03 [place] 00 Medi tressa trimester, trimester, Br anch antepartum antepartum Vaginal Vaginal Disease Active Univers discharge discharge 09-08 ity of 00:00: [place] [facility] Chlamydia Chlamydia Disease Active Uni vers 07-16 ity of 00:00: [place] [facility] Bipolar Bipolar Disease Active Overview: Univ ers disease in disease in 07-15 Formattin ity of 00:00: g of this [place] ex note Medical might be Branch different from the original. D/c lithium 3 weeks ago Seizure Seizure Disease Active 2015-03 Overview: Univ ers disorder disorder 04-17 Formattin ity of 00:00: g of this [place] note Medical might be Branch different from the original. Epilepsy x's 2 years. Had genetic counselin g 01/18/16 [place] [facility]see external records-p age 20-21 Allergies, Adverse Reactions, [...] ity of 00:00: [place] 00 Medical Branch Nitrofur Drug Active Anxiety [facility]ergy [facility] Monohyd/ 00:00: Medical M-Cryst 00 Center [place]os[place] Drug Active Hives [facility]ergy 7[facility] 00:00: Medical 00 Center LACOSAMI Allergy Active High Hives [facility] DE 7[facility]16 [facility] 00:00: Medical 00 Center NITROFUR Allergy Active Med Anxiety 2020-[address] [facility] ANTOIN 7-16 [facility] MONOHYD/ 00:00: [...] 00 Medical Branch TRAMADOL DRUG Active Other-Cmnt 2020-0 Univ ers INGREDI 2-12 ity of 00:00: [place] 00 [facility] Branch Doxycycl Drug Active Hives, Rash 2019-[address] [facility] Allergy 2-12 [facility] 00:00: Medical 00 Center Tramadol Drug Active Other (See 2020-[address] Allergy Comments) 2-12 [facility] 00:00: Medical 00 Center DOXYCYCL Allergy Active High Hives 2020-[address] [facility] INE 2-12 [facility] 00:00: Medical 00 Center TRAMADOL Allergy Active Other 2020-[address] [facility] 2-12 [facility] 00:[facility]: Medical 00 Center Social History Social Habit Start Date Stop Date Quantity Comments Source ASSERTION 2021-06-06 University 00:00:00 [facility] History SDOH [facility] Alcohol Std Medical Cente r Drinks History SDOH [facility] Alcohol Binge Medical [address] History SDOH [facility] Alcohol Comment Medical C enter Exposure to 2021-11-20 2021-11-30 Not sure [facility] SARS-CoV-2 00:00:00 12:00:00 [facility] (event) [place] Alcohol intake 2020-09-24 2020-09-24 Ex-drinker [facility] 00:[facility]:00 00:00:00 (finding) Medical [place] History SDOH 2020-09-22 2020-09-[address] [facility] Alcohol Frequency 00:00:00 00:00:00 Medical Center Tobacco use and 2020-09-21 2020-09-[address] [facility] [facility] exposure 00:00:00 00:00:00 Medical Center Sex Assigned At [birth year] [facility] 00:00:00 00:00:00 Smoking Status Start Date Stop Date Source Never smoked tobacco [facility] Medications Ordered Filled Start Stop Current Ordering Indication Dosage Frequency Signature Comments Components Source Medication Medication Date Date Medication? Clinician (SIG) Name Name lamoTRIgine Yes 100mg Take 100 U nivers (LAMICTAL) 8-29 mg by ity of 100 mg 15:28: mouth at [place] tablet [address] Branch lamoTRIgine Yes 100mg Take 100 U nivers (LAMICTAL) 8-29 mg by ity of 100 mg 15:28: mouth at [place] tablet [address] Branch lamoTRIgine Yes 100mg Take 100 U nivers (LAMICTAL) 8-29 mg by ity of 100 mg 15:28: mouth at [place] tablet [address] lamoTRIgine Yes 100mg Take 100 U nivers (LAMICTAL) 8-29 mg by ity of 100 mg 15:28: mouth at [place] tablet [address] lamoTRIgine Yes 100mg Take 100 U nivers (LAMICTAL) 8-29 mg by ity of 100 mg 15:28: mouth at [place] tablet [address] lamoTRIgine Yes 100mg Take 100 U nivers (LAMICTAL) 8-29 mg by ity of 100 mg 15:28: mouth at [place] tablet [address] lamoTRIgine Yes 100mg Take 100 U nivers (LAMICTAL) 8-29 mg by ity of 100 mg 15:28: mouth at [place] tablet [address] lamoTRIgine Yes 100mg Take 100 U nivers (LAMICTAL) 8-29 mg by ity of 100 mg 15:28: mouth at [place] tablet [address] lamoTRIgine Yes 100mg Take 100 U nivers (LAMICTAL) 8-29 mg by ity of 100 mg 15:28: mouth at [place] tablet [address] lamoTRIgine 2022-0 Yes 100mg Take 100 U nivers (LAMICTAL) 8-29 mg by ity of 100 mg 15:28: mouth at [place] tablet [address] Branch lamoTRIgine 2021-0 Yes 100mg Take 100 U nivers (LAMICTAL) 8-29 mg by ity of 100 mg 15:28: mouth at [place] tablet [address] lamoTRIgine 2021-0 Yes 100mg Take 100 U nivers (LAMICTAL) 8-29 mg by ity of 100 mg 15:28: mouth at [place] tablet [address] lamoTRIgine 2021-0 Yes 100mg Take 100 U nivers (LAMICTAL) 8-29 mg by ity of 100 mg 15:28: mouth at [place] tablet [address] busPIRone 2-0 Yes [id number] 18.75mg Take 2.5 Univers 7.5 mg 5-12 tablets by ity of tablet 00:00: mouth 3 [place] (three) Medical times Branch daily. busPIRone 2-0 Yes [id number] 18.75mg Take 2.5 Univers 7.5 mg 5-12 tablets by ity of tablet 00:00: mouth 3 (three) Medical times Branch daily. busPIRone 2-0 Yes [id number] 18.75mg Take 2.5 Univers 7.5 mg 5-12 tablets by ity of tablet 00:00: mouth 3 (three) Medical times Branch daily. busPIRone 2-0 Yes [id number] 18.75mg Take 2.5 Univers 7.5 mg 5-12 tablets by ity of tablet 00:00: mouth 3 (three) Medical times Branch daily. busPIRone 2022-0 Yes [id number] 18.75mg Take 2.5 Univers 7.5 mg 5-12 tablets by ity of tablet 00:00: mouth 3 (three) Medical times Branch daily. busPIRone 2022-0 Yes [id number] 18.75mg Take 2.5 Univers 7.5 mg 5-12 tablets by ity of tablet 00:00: mouth 3 [place] (three) Medical times Branch daily. busPIRone 2022-0 Yes [id number] 18.75mg Take 2.5 Univers 7.5 mg 5-12 tablets by ity of tablet 00:00: mouth 3 (three) Medical times Branch daily. busPIRone 2-0 Yes [id number] 18.75mg Take 2.5 Univers 7.5 mg 5-12 tablets by ity of tablet 00:00: mouth 3 (three) Medical times Branch daily. busPIRone 2-0 Yes [id number] 18.75mg Take 2.5 Univers 7.5 mg 5-12 tablets by ity of tablet 00:00: mouth (three) Medical times Branch daily. busPIRone 2021-0 Yes [id number] 18.75mg Take 2.5 Univers 7.5 mg 5-12 tablets by ity of tablet 00:00: mouth 3 (three) Medical times Branch daily. busPIRone 2021-0 Yes [id number] 18.75mg Take 2.5 Univers 7.5 mg 5-12 tablets by ity of tablet 00:00: mouth (three) Medical times Branch daily. busPIRone 2021-0 Yes [id number] 18.75mg Take 2.5 Univers 7.5 mg 5-12 tablets by ity of tablet 00:00: mouth (three) Medical times Branch daily. busPIRone 2021-0 Yes [id number] 18.75mg Take 2.5 Univers 7.5 mg 5-12 tablets by ity of tablet 00:00: mouth (three) Medical times Branch daily. busPIRone 2021-0 Yes [id number] 18.75mg Take 2.5 Univers 7.5 mg 5-12 tablets by ity of tablet 00:00: mouth (three) Medical times Branch daily. Yes [id number] 1{tbl} Take 1 U nivers multivitami 5-05 tablet by ity of n ( 00:00: mouth [place] VITAMIN) 00 daily. Medical tablet Branch Yes [id number] 1{tbl} Take 1 U nivers multivitami 5-05 tablet by ity of n ( 00:00: mouth [place] VITAMIN) 00 daily. Medical tablet Branch Yes [id number] 1{tbl} Take 1 U nivers multivitami 5-05 tablet by ity of n ( 00:00: mouth [place] VITAMIN) 00 daily. Medical tablet Branch Yes [id number] 1{tbl} Take 1 U nivers multivitami 5-05 tablet by ity of n ( 00:00: mouth [place] VITAMIN) 00 daily. Medical tablet Branch Yes [id number] 1{tbl} Take 1 U nivers multivitami 5-05 tablet by ity of n ( 00:00: mouth [place] VITAMIN) 00 daily. Medical tablet Branch Yes [id number] 1{tbl} Take 1 U nivers multivitami 5-05 tablet by ity of n ( 00:00: mouth [place] VITAMIN) 00 daily. Medical tablet Branch Yes [id number] 1{tbl} Take 1 U nivers multivitami 5-05 tablet by ity of n ( 00:00: mouth [place] VITAMIN) 00 daily. Medical tablet Branch Yes [id number] 1{tbl} Take 1 U nivers multivitami 5-05 tablet by ity of n ( 00:00: mouth [place] VITAMIN) 00 daily. Medical tablet Branch Yes [id number] 1{tbl} Take 1 U nivers multivitami 5-05 tablet by ity of n ( 00:00: mouth [place] VITAMIN) 00 daily. Medical tablet Branch Yes [id number] 1{tbl} Take 1 U nivers multivitami 5-05 tablet by ity of n ( 00:00: mouth [place] VITAMIN) 00 daily. Medical tablet Branch Yes [id number] 1{tbl} Take 1 U nivers multivitami 5-05 tablet by ity of n ( 00:00: mouth [place] VITAMIN) 00 daily. Medical tablet Branch Yes [id number] 1{tbl} Take 1 U nivers multivitami 5-05 tablet by ity of n ( 00:00: mouth [place] VITAMIN) 00 daily. Medical tablet Branch Yes [id number] 1{tbl} Take 1 U nivers multivitami 5-05 tablet by ity of n ( 00:00: mouth [place] VITAMIN) 00 daily. Medical tablet Branch 0 Yes [id number] 1{tbl} Take 1 U nivers multivitami 5-05 tablet by johana ( 00:00: mouth [place] VITAMIN) 00 daily. Medical tablet Branch lithium 600 0 Yes bipolar 600mg QD Take [address] MG capsule 7-19 disorder in mg by L ukes 17:56: remission mouth Medical 35 every Center morning . busPIRone 2020-0 Yes 10mg Q.5D Take [address] (BUSPAR) 10 7-19 by mouth 2 [facility] MG tablet 17:56: (two) Medical 35 times Center daily. lithium 600 0 Yes bipolar 600mg QD Take [address] MG capsule 7-19 disorder in mg by L ukes 17:56: remission mouth Medical 35 every Center morning . busPIRone 0 Yes 10mg Q.5D Take [address] (BUSPAR) 10 7-19 by mouth 2 [facility] MG tablet 17:56: (two) Medical 35 times Center daily. lithium 300 0 Yes bipolar 900mg QD Take [address] MG capsule 7-15 disorder in mg by L ukes 00:00: remission mouth Medical 00 nightly. Center lithium 300 0 Yes bipolar 900mg QD Take [address] MG capsule 7-15 disorder in mg by L ukes 00:00: remission mouth Medical 00 nightly. Center Immunizations Ordered Filled Immunization Date Status Comments [facility] e Immunization Name Name HPV9 2019-12-30 Completed University of 00:00: [facility] HPV9 2019-12-30 Completed University of 00:00: [facility] HPV9 2019-12-30 Completed University of 00:00: [facility] HPV9 2019-12-30 Completed University of 00:00: [facility] HPV9 2019-12-30 Completed University of 00:00: [facility] HPV9 2019-12-30 Completed University of 00:00: [facility] HPV9 2019-12-30 Completed University of 00:00: [facility] HPV9 2019-12-30 Completed University of 00:00: [facility] HPV9 2019-12-30 Completed University of 00:00: [facility] HPV9 2019-12-30 Completed University of 00:00:00 [facility] HPV9 2019-12-30 Completed University of 00:00:00 [place] [facility] HPV9 2019-12-30 Completed University of 00:00:00 [place] [facility] HPV9 2019-12-30 Completed University of 00:00:00 [place] [facility] HPV9 2019-12-30 Completed University of 00:00:00 [place] [facility] HPV9 2019-09-27 Completed University of 00:00:00 [place] [facility] HPV9 2019-09-27 Completed University of 00:00:00 [place] [facility] HPV9 2019-09-27 Completed University of 00:00:00 [place] [facility] HPV9 2019-09-27 Completed University of 00:00:00 [place] [facility] HPV9 2019-09-27 Completed University of 00:00:00 [place] [facility] HPV9 2019-09-27 Completed University of 00:00:00 [place] [facility] HPV9 2019-09-27 Completed University of 00:00:00 [place] [facility] HPV9 2019-09-27 Completed University of 00:00:00 [place] [facility] HPV9 2019-09-27 Completed University of 00:00:00 [place] [facility] HPV9 2019-09-27 Completed University of 00:00:00 [place] [facility] HPV9 2019-09-27 Completed University of 00:00:00 [place] [facility] HPV9 2019-09-27 Completed University of 00:00:00 [place] [facility] HPV9 2019-09-27 Completed University of 00:00:00 [place] [facility] HPV9 2019-09-27 Completed University of 00:00:00 [place] [facility] HPV9 2019-05-17 Completed University of 00:00:00 [place] [facility] HPV9 2019-05-17 Completed University of 00:00:00 [place] [facility] HPV9 2019-05-17 Completed University of 00:00:00 [place] [facility] HPV9 2019-05-17 Completed University of 00:00:00 [place] [facility] HPV9 2019-05-17 Completed University of 00:00:00 [place] [facility] HPV9 2019-05-17 Completed University of 00:00:00 [place] [facility] HPV9 2019-05-17 Completed University of 00:00:00 [place] [facility] HPV9 2019-05-17 Completed University of 00:00:00 [place] [facility] HPV9 2019-05-17 Completed University of 00:00:00 [place] [facility] HPV9 2019-05-17 Completed University of 00:00:00 [facility] HPV9 2019-05-17 Completed University of 00:00:00 [facility] Branch HPV9 2019-05-17 Completed University of 00:00:00 [facility] Branch HPV9 2019-05-17 Completed University of 00:00:00 [facility] Branch HPV9 2019-05-17 Completed University of [...] Vaccine Quad IM 3+ 00:00:00 [facility] Influenza Virus 2017-12-14 Completed Universit y of Vaccine Quad IM 3+ 00:00:00 [facility] Influenza Virus 2017-12-14 Completed Universit y of Vaccine Quad IM 3+ 00:00:00 [facility] Influenza Virus 2017-12-14 Completed Universit y of Vaccine Quad IM 3+ 00:00:00 [facility] Influenza Virus 2017-12-14 Completed Universit y of Vaccine Quad IM 3+ 00:00:00 [facility] Influenza Virus 2017-12-14 Completed Universit y of Vaccine Quad IM 3+ 00:00:00 [facility] Influenza Virus 2017-12-14 Completed Universit y of Vaccine Quad IM 3+ 00:00:00 [facility] Influenza Virus 2017-12-14 Completed Universit y of Vaccine Quad IM 3+ 00:00:00 [facility] Influenza Virus 2017-12-14 Completed Universit y of Vaccine Quad IM 3+ 00:00:00 [facility] Influenza Virus 2017-12-14 Completed Universit y of Vaccine Quad IM 3+ 00:00:00 [facility] Influenza Virus 2017-12-14 Completed Universit y of Vaccine Quad IM 3+ 00:00:00 [facility] Influenza Virus 2017-12-14 Completed Universit y of Vaccine Quad IM 3+ 00:00:00 [facility] Influenza Virus 2017-12-14 Completed Universit y of Vaccine Quad IM 3+ 00:00:00 [facility] Influenza Virus 2017-12-14 Completed Universit y of Vaccine Quad IM 3+ 00:00:00 [facility] Varicella 2016-05-24 Completed University of (varivax)(chicken [...] WEIGHT 2020-09-21 19:00:00 80.786 kg Systolic blood 2021-11-30 16:47:00 133 mm[Hg] Univer sity of pressure [facility] Diastolic blood 2021-11-30 16:47:00 73 mm[Hg] Unive rsity of pressure [facility] Heart rate 2021-11-30 16:47:00 96 /min [facility] Body temperature 2021-11-30 16:47:[address] [facility] Res[facility] 2021-11-30 16:47:00 18 /min [facility] Body weight 2021-11-30 16:47:00 94.031 kg [facility] BMI 2021-11-30 16:47:00 35.58 kg/m2 [facility] Oxygen saturation in 2021-11-30 16:47:00 97 /min [facility] Arterial blood by [facility] Pulse oximetry Branch Systolic blood 2021-11-29 13:03:00 113 mm[Hg] Univer sity of pressure [facility] Diastolic blood 2021-11-29 13:03:00 65 mm[Hg] Unive rsity of [facility] Heart rate 2021-11-29 13:03:00 82 /min [facility] Body temperature 2021-11-29 13:03:00 36.89 Shira [facility] Respiratory rate 2021-11-29 13:03:00 20 /min [facility] Body height 2021-11-29 13:03:00 [facility] Body weight 2021-11-29 13:03:00 92.987 kg [facility] BMI 2021-11-29 13:03:00 35.19 kg/m2 [facility] Oxygen saturation in 2021-11-29 13:03:00 100 /min [facility] Arterial blood by [facility] Pulse oximetry Branch HEIGHT 2020-09-22 06:00:00 152.4 cm WEIGHT 2020-09-22 06:00:00 80.8 kg HEIGHT 2020-09-21 19:00:00 152.4 cm WEIGHT 2020-09-21 19:00:00 80.786 kg Procedures Procedure Date / Time Performing Clinician Source Performed CONSENT/REFUSAL FOR 2021-11-30 16:38:10 Doctor Unassigned, No [facility] DIAGNOSIS AND TREATMENT [facility] POCT URINALYSIS 2021-11-29 00:00:00 Enedina Solis [facility] AUTHORIZATION FOR 2021-07-19 05:01:00 Doctor Unassigned, No [facility] RELEASE OF PHI Name [facility] Plan of Care Planned Activity Planned Date Details Comments Source Future Scheduled 2028-02-16 DTAP/TDAP/TD VACCINES [facility] Test 00:00:00 (3 - Td or Tdap) [facility] [code = DTAP/TDAP/TD VACCINES (3 - Td or Tdap)] Future Scheduled 2028-02-16 DTAP/TDAP/TD VACCINES [facility] Test 00:00:00 (3 - Td or Tdap) [facility] [code = DTAP/TDAP/TD VACCINES (3 - Td or Tdap)] Future Scheduled 2021-11-09 Hepatitis C screening [facility] Test 06:02:25 (procedure) [code = 390955689] Future Scheduled 2021-11-09 Screening for [facility] Test 06:02:25 malignant neoplasm of cervix (procedure) [code = 617465099] Future Scheduled 2021-11-09 INFLUENZA VACCINE [facility] Test 06:02:25 [code = INFLUENZA VACCINE] Future Scheduled 2021-11-09 HEPATITIS B VACCINES [facility] Test 06:02:25 (1 of 3 - 3-dose series) [code = HEPATITIS B VACCINES (1 of 3 - 3-dose series)] Future Scheduled 2021-11-09 INFLUENZA VACCINE [facility] Test 06:02:25 [code = INFLUENZA VACCINE] Future Scheduled 2021-11-09 HEPATITIS B VACCINES [facility] Hospital Test 06:02:25 (1 of 3 - 3-dose series) [code = HEPATITIS B VACCINES (1 of 3 - 3-dose series)] Future Scheduled 2021-11-09 COVID-19 VACCINE (#1) [facility] Test 06:02:25 [code = COVID-19 VACCINE (#1)] Future Scheduled 2021-11-09 Screening for [facility] Test 06:02:25 Chlamydia trachomatis (procedure) [code = 130875231] Future Scheduled 2021-11-09 Hepatitis C screening [facility] Test 06:02:25 (procedure) [code = 331790609] Future Scheduled 2021-11-09 Screening for [facility] Test 06:02:25 malignant neoplasm of cervix (procedure) [code = 917087809] Future Scheduled 2021-11-09 COVID-19 VACCINE (#1) [facility] Test 06:02:25 [code = COVID-19 VACCINE (#1)] Future Scheduled 2021-11-09 Screening for [facility] Test 06:02:25 Chlamydia trachomatis (procedure) [code = 299013494] Future Scheduled 2021-11-[address] [facility] Test 00:00:00 (#1) [code = Medical Center INFLUENZA VACCINE (#1)] Future Scheduled 2021-11-[address] [facility] Test 00:00:00 (#1) [code = Medical Center INFLUENZA VACCINE (#1)] Future Scheduled 2021-03-[address] [facility] Test 00:00:00 (12+) [code = Medical Center DEPRESSION SCREENING (12+)] Future Scheduled 2021-03-[address] [facility] Test 00:00:00 (12+) [code = Medical Center DEPRESSION SCREENING (12+)] Future Scheduled [address] [facility] Test 00:00:00 malignant neoplasm of Medica l Center cervix (procedure) [code = 095458838] Future Scheduled [address] [facility] Test 00:00:00 malignant neoplasm of Medica l Center cervix (procedure) [code = 428280044] Future Scheduled [address] [facility] Test 00:[facility]:00 (procedure) [code = [facility] [id number]] Future Scheduled [address] [facility] Test 00:00:00 (procedure) [code = [facility] 58094123] Future Scheduled 2015 HEPATITIS C [facility]CRE[facility]ING [facility] Test 00:00:00 [code = HEPATITIS C Medical Center SCREENING] Future Scheduled 2015 HEPATITIS C [facility]CRE[facility]ING [facility] Test 00:00:00 [code = HEPATITIS C Medical Center SCREENING] Future Scheduled 1997 COVID-19 VACCINE (#1) [facility] Test 00:00:00 [code = COVID-[address] VACCINE (#1)] Future Scheduled 1995 COVID-19 VACCINE (#1) [facility] Test 00:00:00 [code = COVID-[address] VACCINE (#1)] Future Scheduled [facility]DIA [facility]CRE[facility] [code = CHLAMYDIA SCREENING] Future Scheduled COVID-19 [facility]ACCINE (1) [facility] [code = COVID-19 VACCINE (1)] Future Scheduled [facility] (procedure) [code = 704658222] Future Scheduled [facility] Test malignant neoplasm of cervix (procedure) [code = 947377084] Future Scheduled INFLUENZA VACCINE [facility] [code = INFLUENZA VACCINE] Encounters Start End Encounter Admission Attending Care Care Encounter Source Date/Time Date/Time Type Type Clinicians Facility Department ID 2020-09-21 Inpatient ER RIN PARKINSON [facility] [id number] [facility] 19:23:00 JOANNE 2021-12-13 2021-12-13 Outpatient R [facility] [id number] Univers 09:15:00 09:15:00 ENEDINA ity o f [facility] 2021-11-30 2021-11-30 [facility] [id number] Univers 11:50:00 12:13:00 ARELI ity of [facility] 2021-11-30 2021-11-30 [facility] [id number] Univers 11:50:00 12:13:00 Areli GUTIERREZ [id number] ity [facility] [id number] [facility] [id number] [facility] 084 [place] 2021-11-30 2021-11-30 Letter COLT Wyman [id number] Univers 00:00:00 00:00:00 (Out) Vijaya CAT [id number] it y of [facility] [id number] Dwayne as [phone] [facility] [address] 2021-11-29 2021-11-29 Education Spec [facility], [facility] 1.2 .[id number] Univers 15:15:00 16:00:00 Visit Trever Katz APPLICATION DEVELOPER [id number] ity Zen Garcia [facility] [id number] [place] MATERNAL [phone] Med ical & CHILD [address] [place] [address] 2021-11-29 2021-11-29 Outpatient R GIANNA [facility] [id number] Univers 07:45:00 08:28:49 TREVER hammonds o f [facility] 2021-11-29 2021-11-29 [facility] [id number] Univers 07:45:00 08:28:49 Trever Clemente APPLICATION DEVELOPER [id number] ity of Visit [facility] [id number] Dwayne as MATERNAL [phone] Med ical & CHILD 107 [facility] 2021-11-29 2021-11-29 Outpatient R GIANNA, [facility] [id number] Univers 07:45:00 07:45:00 TREVER [id number] ity o kari [facility] 2021-11-28 2021-11-28 Outpatient R ISMAEL [facility] [id number] Univers 14:45:00 14:45:00 ENEDINA braxton f [facility] 2021-11-19 2021-11-19 Telephone [facility] 1.2.840.114 [id number] Univers 00:00:00 00:00:00 Enedina Estevez APPLICATION DEVELOPER [id number] ity of [facility] [id number] Dwayne as MATERNAL [phone] [facility] & CHILD [address] [place] [address] 2021-07-19 2021-07-19 Orders Doctor COLT 1.2.840.114 [id number] Univers 00:00:00 00:00:00 Only Unassigned, STEPHANIA 350.1.13.10 ity of [place] [facility] [id number] Dwayne as [phone] [address] 2020-10-15 2020-10-15 Telephone [facility] 1.2.840.114 [id number] 00:00:00 00:00:00 Monique N APPLICATION DEVELOPER [id number] REGIONAL [id number] MATERNAL [phone] & CHILD [address] [place] [address] 2020-10-12 2020-10-12 Telephone [facility] 1.2.840.114 [id number] 00:00:00 00:00:00 Monique N APPLICATION DEVELOPER [id number] REGIONAL [id number] MATERNAL [phone] & CHILD [address] [place] [address] 2020-10-11 2020-10-11 Telephone [facility] [id number] 00:00:00 00:00:00 Monique N APPLICATION DEVELOPER [id number] REGIONAL [id number] MATERNAL [phone] & CHILD [address] [place] [address] 2020-10-09 2020-10-09 Office [facility] [id number] 15:44:08 16:29:53 Visit Monique Rabia APPLICATION DEVELOPER 350.1.13.10 [facility] [id number] MATERNAL [phone] & CHILD 107 [facility] Results Test Description Test Time Test Comments Results Result Comments Source POCT URINALYSIS W SPECIFIC GRAVITY 2021-11-29 13:14:00 Test Item Value Reference Range Interpretation Comme [...] POCT U APPEAR (test code = 3267) . [facility] URINALYSIS W SPECIFIC [id number] 13:14:00 Test Item Value Reference Range Interpretation Comments POCT U SP GRAV (test code = . 1.005-1.025 3255) POCT PH U (test code = 3254) . 5-8 POCT U LEUK EST (test code = . Negative - Negative 3263) POCT U NIT (test code = 3262) . Negative - Negative POCT U PROT (test code = 3259) trace Negative - Negative POCT U GLU (test code = 3256) negative Negative - Negative POCT U KETONE (test code = 3258) . Negative - Negative POCT U UROBILI (test code = . 0.2-1 3260) POCT U BILI (test code = 3261) . Negative - Negative POCT U BLD (test code = 3257) . Negative - Negative POCT U COLOR (test code = 3266) . POCT U APPEAR (test code = 3267) . [facility] URINALYSIS W SPECIFIC [id number] 13:14:00 Test Item Value Reference Range Interpretation Comments POCT U SP GRAV (test code = . 1.005-1.025 3255) POCT PH U (test code = 3254) . 5-8 POCT U LEUK EST (test code = . Negative - Negative 3263) POCT U NIT (test code = 3262) . Negative - Negative POCT U PROT (test code = 3259) trace Negative - Negative POCT U GLU (test code = 3256) negative Negative - Negative POCT U KETONE (test code = 3258) . Negative - Negative POCT U UROBILI (test code = . 0.2-1 3260) POCT U BILI (test code = 3261) . Negative - Negative POCT U BLD (test code = 3257) . Negative - Negative POCT U COLOR (test code = 3266) . POCT U APPEAR (test code = 3267) . [facility] URINALYSIS W SPECIFIC [id number] 13:14:00 Test Item Value Reference Range Interpretation Comments POCT U SP GRAV (test code = . 1.005-1.025 3255) POCT PH U (test code = 3254) . 5-8 POCT U LEUK EST (test code = . Negative - Negative 3263) POCT U NIT (test code = 3262) . Negative - Negative POCT U PROT (test code = 3259) trace Negative - Negative POCT U GLU (test code = 3256) negative Negative - Negative POCT U KETONE (test code = 3258) . Negative - Negative POCT U UROBILI (test code = . 0.2-1 3260) POCT U BILI (test code = 3261) . Negative - Negative POCT U BLD (test code = 3257) . Negative - Negative POCT U COLOR (test code = 3266) . POCT U APPEAR (test code = 3267) . [facility] URINALYSIS W SPECIFIC [id number] 13:14:00 Test Item Value Reference Range Interpretation Comments POCT U SP GRAV (test code = . 1.005-1.025 3255) POCT PH U (test code = 3254) . 5-8 POCT U LEUK EST (test code = . Negative - Negative 3263) POCT U NIT (test code = 3262) . Negative - Negative POCT U PROT (test code = 3259) trace Negative - Negative POCT U GLU (test code = 3256) negative Negative - Negative POCT U KETONE (test code = 3258) . Negative - Negative POCT U UROBILI (test code = . 0.2-1 3260) POCT U BILI (test code = 3261) . Negative - Negative POCT U BLD (test code = 3257) . Negative - Negative POCT U COLOR (test code = 3266) . POCT U APPEAR (test code = 3267) . [facility] URINALYSIS W SPECIFIC [id number] 13:14:00 Test Item Value Reference Range Interpretation Comments POCT U SP GRAV (test code = . 1.005-1.025 3255) POCT PH U (test code = 3254) . 5-8 POCT U LEUK EST (test code = . Negative - Negative 3263) POCT U NIT (test code = 3262) . Negative - Negative POCT U PROT (test code = 3259) trace Negative - Negative POCT U GLU (test code = 3256) negative Negative - Negative POCT U KETONE (test code = 3258) . Negative - Negative POCT U UROBILI (test code = . 0.2-1 3260) POCT U BILI (test code = 3261) . Negative - Negative POCT U BLD (test code = 3257) . Negative - Negative POCT U COLOR (test code = 3266) . POCT U APPEAR (test code = 3267) . [facility] URINALYSIS W SPECIFIC [id number] 13:14:00 Test Item Value Reference Range Interpretation Comments POCT U SP GRAV (test code = . 1.005-1.025 3255) POCT PH U (test code = 3254) . 5-8 POCT U LEUK EST (test code = . Negative - Negative 3263) POCT U NIT (test code = 3262) . Negative - Negative POCT U PROT (test code = 3259) trace Negative - Negative POCT U GLU (test code = 3256) negative Negative - Negative POCT U KETONE (test code = 3258) . Negative - Negative POCT U UROBILI (test code = . 0.2-1 3260) POCT U BILI (test code = 3261) . Negative - Negative POCT U BLD (test code = 3257) . Negative - Negative POCT U COLOR (test code = 3266) . POCT U APPEAR (test code = 3267) . [facility] URINALYSIS W SPECIFIC [id number] 13:14:00 Test Item Value Reference Range Interpretation Comments POCT U SP GRAV (test code = . 1.005-1.025 3255) POCT PH U (test code = 3254) . 5-8 POCT U LEUK EST (test code = . Negative - Negative 3263) POCT U NIT (test code = 3262) . Negative - Negative POCT U PROT (test code = 3259) trace Negative - Negative POCT U GLU (test code = 3256) negative Negative - Negative POCT U KETONE (test code = 3258) . Negative - Negative POCT U UROBILI (test code = . 0.2-1 3260) POCT U BILI (test code = 3261) . Negative - Negative POCT U BLD (test code = 3257) . Negative - Negative POCT U COLOR (test code = 3266) . POCT U APPEAR (test code = 3267) . [facility] URINALYSIS W SPECIFIC [id number] 13:14:00 Test Item Value Reference Range Interpretation Comments POCT U SP GRAV (test code = . 1.005-1.025 3255) POCT PH U (test code = 3254) . 5-8 POCT U LEUK EST (test code = . Negative - Negative 3263) POCT U NIT (test code = 3262) . Negative - Negative POCT U PROT (test code = 3259) trace Negative - Negative POCT U GLU (test code = 3256) negative Negative - Negative POCT U KETONE (test code = 3258) . Negative - Negative POCT U UROBILI (test code = . 0.2-1 3260) POCT U BILI (test code = 3261) . Negative - Negative POCT U BLD (test code = 3257) . Negative - Negative POCT U COLOR (test code = 3266) . POCT U APPEAR (test code = 3267) . [id number] 18:22:00 Test Item Value Reference Range Interpretation Comments LITHIUM LEVEL (BEAKER) 0.8 mmol/L 0.8-1.2 (test code = 630) SCAN RESULT (test code = See Scanned Report [id number]) [place], [id number] 14:13:01Reason for exam:->abnormal imaging [facility] : 1995 Sex: FFluoroscopic unit utilized for a procedure performed in the OR. No interpretation was requested. Refer to the operative report for findings. Refer to PACS for patient radiation dose information.COMPREHENSIVE METABOLIC [id number] 06:43:00 Test Item Value Reference Range Interpretation [...] S NOT APPLICABLE FOR DIALYSIS PATIEN TS. 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 Upholsterer Apprentice ID - PIAYA LCBC (HEMOGRAM ONLY)2020-09-23 06:47:00 [...] (BEAKER) (test code = 413) COMPREHENSIVE METABOLIC [id number] 08:27:00 Test Item Value Reference Range Interpretation [...] S NOT APPLICABLE FOR DIALYSIS PATIEN TS. 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 The reference range was not used to int erpret this result as normal/abnormal . RECOMMENDED COUMADIN/WARFARIN INR THERAPY RANGESSTANDARD DOSE: 2.0 - 3.0 Includes: PROPHYLAXIS for venous thrombosis, systemic embolization; TREATMENT for venous thrombosis and/or pulmonary embolus.HIGH RISK: Target INR is 2.5-3.5 for patients with mechanical heart valves.CBC W/PLT COUNT & AUTO [id number] 07:49:00 Test Item Value Reference Range Interpretation [...] 0-1 H PERCENT (BEAKER) (test code = 0109)
[2021-12-01] MEDS ORDERED: ACETAMINOPHEN 325 MG TABLET ONE (10:24)
[2021-12-01] MEDS ORDERED: MORPHINE 4 MG/ML SYR ONE (10:25)
--- NOTE | 2021-12-01 12:43 | EDPHYS ---
Physician Documentation [facility] Name: Mile Wang Age: 26 yrs Sex: Female : 1995 Arrival Date: 12/01/2021 Time: 09:53 Bed 19 Private MD: ED Physician Mesfin Brenner HPI: 12/01 10:14 This 26 yrs old Female presents to ER via Wheelchair with complaints of Low Back Pain, rn 27 wks . 10:14 The patient presents with pain that is acute, with no known mechanism of injury. The rn symptoms are located in the low back. The pain radiates to the right leg and left leg. 10:14 Onset: The symptoms/episode began/occurred last night. Modifying factors: The patient rn symptoms are alleviated by nothing, the patient symptoms are aggravated by any movement, bending, movement, standing, walking. Associated signs and symptoms: Pertinent negatives: abdominal pain, chest pain, dysuria, fever, hematuria, incontinence, urinary retention, vomiting, weakness. Severity of symptoms: At their worst the symptoms were moderate, in the emergency department the symptoms are unchanged. The patient has experienced similar episodes in the past. The patient has been recently seen by a physician:. Pt reports low back pain, left side, radiates down legs, no trauma. Has had back pain before but worse last night. No fever. Just seen at Labor and delivery, and cleared from baby standpoint. Also had urine tested and was negative. Pt states hx of kidney stones but this feels different. . 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 - Social history:: Smoking status: Patient denies any tobacco usage or history of. - Family history:: not pertinent. - Hospitalizations: : No recent hospitalization is reported. ROS: 10:14 Constitutional: Negative for fever, chills, and weight loss, Eyes: Negative for injury, rn pain, redness, and discharge, Neck: Negative for injury, pain, and swelling, Cardiovascular: Negative for chest pain, palpitations, and edema, Respiratory: Negative for shortness of breath, cough, wheezing, and pleuritic chest pain, Abdomen/GI: Negative for abdominal pain, nausea, vomiting, diarrhea, and constipation, Back: Negative for injury : Negative for injury, bleeding, discharge, and swelling, MS/Extremity: Negative for injury and deformity, Skin: Negative for injury, rash, and discoloration, Neuro: Negative for headache, weakness, numbness, tingling, and seizure. Exam: 10:14 Constitutional: This is a well developed, well nourished patient who is awake, alert, rn appears uncomfortable Head/Face: Normocephalic, atraumatic. Cardiovascular: Regular rate and rhythm. No pulse deficits. Respiratory: No increased work of breathing, no retractions or nasal flaring. Abdomen/GI: Soft, non-tender Skin: Warm, dry with normal turgor. Normal color with no rashes, no lesions, and no evidence of cellulitis. MS/ Extremity: Pulses equal, no cyanosis. Neurovascular intact. Full, normal range of motion. Equal circumference. Neuro: Awake and alert, GCS 15, oriented to person, place, time, and situation. Motor strength 5/5 in all extremities. Sensory grossly intact. Cerebellar exam normal. Normal gait. Vital Signs: 09:56 BP 118 / 76; Pulse 96; Resp 18; Temp 98.4(TE); Pulse Ox 100% on R/A; Weight 92.99 kg tw2 (R); Pain 8/10; 10:15 BP 122 / 64; Pulse 88; Resp 16; Pulse Ox 99% ; Pain 9/10; mb8 11:03 BP 125 / 67; Pulse 80; Resp 16; Pulse Ox 99% ; Pain 9/10; mb8 MDM: 09:56 Patient medically screened. rn 11:20 Differential diagnosis: strain, sciatica, Herniated disc UTI. Data reviewed: vital rn signs, nurses notes, old medical records, and as a result, I will discharge patient. Counseling: I had a detailed discussion with the patient and/or guardian regarding: the historical points, exam findings, and any diagnostic results supporting the discharge/admit diagnosis, the need for outpatient follow up, to return to the emergency department if symptoms worsen or persist or if there are any questions or concerns that arise at home. Special discussion: I discussed with the patient/guardian in detail that at this point there is no indication for admission to the hospital. It is understood, however, that if the symptoms persist or worsen the patient needs to return immediately for re-evaluation. Based on the history and exam findings, there is no indication for further emergent testing or inpatient evaluation. I discussed with the patient/guardian the need to see the OB Gyne specialist for further evaluation of the symptoms. ED course: Pt already cleared by labor and delivery, had neg UA up there, sent here, no abd tenderness, no trauma, no neurological findings, and reports feels different from previous kidney stones. . 12:40 ED course: Pt feels better but still in pain. She states she plans to go to see her OB rn for further recs. Pt does not appear to be in pain like when she came in, is sitting reclined and using phone, legs crossed now.. Administered Medications: 10:20 Drug: morphine 4 mg Route: IM; Site: right vastus lateralis; mb8 10:53 Follow up: Response: No adverse reaction; Pain is unchanged, physician notified mb8 10:20 Drug: Tylenol 325 mg Route: PO; mb8 10:53 Follow up: Response: No adverse reaction; Pain is unchanged, physician notified mb8 Disposition Summary: 12/01/21 12:42 Discharge Ordered Location: Home rn Problem: new rn Symptoms: have improved rn Condition: Stable rn Diagnosis - Low back pain rn Followup: rn - With: Private Physician - When: As needed - Reason: Recheck today's complaints, Re-evaluation by your physician Discharge Instructions: - Discharge Summary Sheet rn - Acute Back Pain, Adult rn - Pain Without a Known Cause rn Forms: - Medication Reconciliation Form rn - Thank You Letter rn - Antibiotic inpatient care manager rn - Prescription Opioid Use rn Signatures: Mesfin Brenner MD MD rn Smirch, Shelby, RN RN ss Wise, Tara, RN RN 2 Juan Domínguez RN RN mb8
--- NOTE | 2021-12-01 12:43 | ER ---
Nurse's Notes [facility] Name: Mile Wang Age: 26 yrs Sex: Female : 1995 Arrival Date: 12/01/2021 Time: 09:53 Bed 19 Private MD: Diagnosis: Low back pain Presentation: 12/01 09:56 Chief complaint: Patient states: earlier this morning my lowe back started hurting. i tw2 cant really walk if i bend my head down my low back hurts. its like shooting pain pain down my lower back. 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 Coronavirus screen: At this time, the client does not indicate any symptoms associated with coronavirus-19. Ebola Screen: Patient denies travel to an Ebola-affected area in the 21 days before illness onset. Initial Sepsis Screen: Does the patient meet any 2 criteria? HR > 90 bpm. No. Patient's initial sepsis screen is negative. Does the patient have a suspected source of infection? No. Patient's initial sepsis screen is negative. Risk Assessment: Do you want to hurt yourself or someone else? Patient reports no desire to harm self or others. Onset of symptoms was December 01, 2021. 09:56 Method Of Arrival: Wheelchair tw2 09:56 Acuity: BAIRON 3 tw2 Triage Assessment: 09:59 General: Appears in no apparent distress. Behavior is calm, cooperative, appropriate tw2 for age. Pain: Complains of pain in left low back. Musculoskeletal: Reports pain in lower back. 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 - Social history:: Smoking status: Patient denies any tobacco usage or history of. - Family history:: not pertinent. - Hospitalizations: : No recent hospitalization is reported. Screenin:59 Abuse screen: Denies threats or abuse. Nutritional screening: No deficits noted. tw2 Tuberculosis screening: No symptoms or risk factors identified. Fall Risk None identified. Assessment: 10:15 Musculoskeletal: Circulation, motion, and sensation intact. Capillary refill < 3 mb8 seconds, Range of motion: intact in all extremities, Reports pain in back Denies. 10:53 Reassessment: Patient and/or family updated on plan of care and expected duration. Pain mb8 level reassessed. Patient is alert, oriented x 3, equal unlabored respirations, skin warm/dry/pink. Patient reports pain medication did not help. Vital Signs: 09:56 BP 118 / 76; Pulse 96; Resp 18; Temp 98.4(TE); Pulse Ox 100% on R/A; Weight 92.99 kg tw2 (R); Pain 8/10; 10:15 BP 122 / 64; Pulse 88; Resp 16; Pulse Ox 99% ; Pain 9/10; mb8 11:03 BP 125 / 67; Pulse 80; Resp 16; Pulse Ox 99% ; Pain 9/10; mb8 ED Course: 09:53 Patient arrived in ED. rg4 09:56 Mesfin Brenner MD is Attending Physician. rn 09:57 Triage completed. tw2 09:59 Arm band placed on. tw2 10:01 Bed in low position. Call light in reach. tw2 10:12 Juan Domínguez, JUAN M is Primary Nurse. mb8 10:22 No provider procedures requiring assistance completed. mb8 12:47 Patient did not have IV access during this emergency room visit. mb8 Administered Medications: 10:20 Drug: morphine 4 mg Route: IM; Site: right vastus lateralis; mb8 10:53 Follow up: Response: No adverse reaction; Pain is unchanged, physician notified mb8 10:20 Drug: Tylenol 325 mg Route: PO; mb8 10:53 Follow up: Response: No adverse reaction; Pain is unchanged, physician notified mb8 Medication: 10:07 VIS not applicable for this client. tw2 Outcome: 12:42 Discharge ordered by . rn 12:47 Discharged to home ambulatory. mb8 12:47 Condition: stable 12:47 Discharge instructions given to patient, Instructed on discharge instructions, follow up and referral plans. Demonstrated understanding of instructions, follow-up care. 12:47 Patient left the ED. mb8 Signatures: Mesfin Brenner MD MD rn Smirch, Shelby RN RN ss Linda Bush RN RN haja2 Oneyda Miramontes 4 Juan Domínguez RN RN mb8
[2021-12-02 23:00] VITALS: O2SAT 99
[2021-12-02 23:16] VITALS: TEMP 98.4
[2021-12-02 23:23] VITALS: BP 125/67
== END 2021-12-01 12:47 | disposition home or self-care (01) ==
LOC: ER 09:51
DX: O26.892 Other specified pregnancy related conditions, second trimester (principal); M54.50 Low back pain, unspecified; O99.342 Other mental disorders complicating pregnancy, second trimester; F31.9 Bipolar disorder, unspecified; Z3A.27 27 weeks gestation of pregnancy; Z88.1 Allergy status to other antibiotic agents; Z88.5 Allergy status to narcotic agent; Z88.8 Allergy status to other drugs, medicaments and biological substances
CPT/HCPCS: 96372; 99283

== ENCOUNTER 2022-01-21 19:04 | Emergency (ER) | payer BC, OTHER ==
--- OUTSIDE RECORDS SUMMARY | 2022-01-21 19:14 | XMS REPORT | Continuity of Care Document ---
:1995 Author Organization [facility] t Address [address] [place] [address] Care Team Providers Name Role Phone Asked, No Pcp Primary Care Physician Unavailable JOANNE PARKINSON Attending Clinician Unavailable COLT MICHAELS Attending Clinician Unavailable ALMA SOLIS Attending Clinician Unavailable RADHA NOBLES Attending Clinician Unavailable Provider, Ember Temp Attending Clinician Unavailable Radha Nobles CNM Attending Clinician AMY SHARMA Attending Clinician Unavailable Risk, Fay-Ayfej-Zc/High Attending Clinician Unavailable Amy Jacob Attending Clinician Alma Vasquez Attending Clinician [phone] Pob, Adc Lab Main Attending Clinician Unavailable Neal Reed MD Attending Clinician [phone] KEVIN SINGH Attending Clinician Unavailable Kevin Colbert Attending Clinician NEAL REED Attending Clinician Unavailable Faculty, Reddy Mottm Attending Clinician Unavailable Trever Hernandez Attending Clinician Doctor Unassigned, [place] Attending Clinician Unavailable LUKE FISH Attending Clinician Unavailable Luke Fish MD Attending Clinician ARELI PATEL Attending Clinician Unavailable Areli Patel DO Attending Clinician Zamzam MCGOWAN, Vijaya Whelan Attending Clinician Unavailable Ultrasound, Ang-Mfm Attending Clinician Unavailable Jose DOZen Attending Clinician TREVER KATZ Attending Clinician Unavailable Anton Renteria MD Attending Clinician ANTON RENTERIA Attending Clinician Unavailable 1, [facility]a-[facility] Us Room Attending Clinician Unavailable Jorge LIZARRAGAP, Abena Camarillo Attending Clinician ABENA PATEL Attending Clinician Unavailable Lab, Pea-Rmchp Attending Clinician Unavailable RICHARD ANDERSON Attending Clinician Unavailable RICHARD ANDERSON Attending Clinician Unavailable KIARRA ARIZMENDI Attending Clinician Unavailable Ugo LOSS PREVENTION CONSULTANT, Kiarra Attending Clinician ANGELO KENNEY Attending Clinician Unavailable Angelo Kenney MD Attending Clinician BERTHA MARY Attending Clinician Unavailable Bertha Hale S Attending Clinician Richard Anderson MD Attending Clinician ARMEN RODRIGUEZ Attending Clinician Unavailable Raven Goldsmith MD Attending Clinician Armen Rodriguez MD Attending Clinician Lab, Ang-Rmchp Attending Clinician Unavailable LILIANA SALINAS Attending Clinician Unavailable Liliana Stephenson Attending Clinician Lauryn Ramírez MD Attending Clinician LAURYN RAMÍREZ Attending Clinician Unavailable Mesfin Grant RN Attending Clinician Unavailable Mary Rios MD Attending Clinician MARY RIOS Attending Clinician Unavailable Only, Adc Test Attending Clinician Unavailable Cheo Galvin MD Attending Clinician Peace Cardenas Attending Clinician Wong Cade DO Attending Clinician Alfred B[place] Santosh Demian Attending Clinician Visit, [facility] Attending Clinician Unavailable RAVEN GOLDSMITH Attending Clinician Unavailable Kulwinder MCGOWAN, Kevin Camacho Attending Clinician Unavailable TISH NEVAREZ Attending Clinician Unavailable Tish Joyner Attending Clinician LORY URBINA I Attending Clinician Unavailable Lory Urbina DO I Attending Clinician LUKE FISH Admitting Clinician Unavailable JOANNE PARKINSON Admitting Clinician Unavailable Luke Fish MD Admitting Clinician BERTHA MARY Admitting Clinician Unavailable Mary Rios MD Admitting Clinician MIRELLA STANFORD Admitting Clinician Unavailable RAVEN GOLDSMITH Admitting Clinician Unavailable TISH NEVAREZ Admitting Clinician Unavailable LORY URBINA I Admitting Clinician Unavailable Payers Payer Name Policy Type Policy Number Effective Date Expiration Date Piyush sofia [facility] SELECT [id number] 2021 00:00:00 [facility] [id number] 2017 CHOICE [place] STAR 00:00:00 Problems Condition Condition Condition Status Onset Resolution Last Treating Co mments Source Name Details Category Date Date Treatment Clinician Date Disease Active 2021-03 Uni vers with with 0-11 ity of adoption adoption 00:00: [place] planned planned 00 Medical Branch URI (upper URI (upper Disease Active U nivers respirator respirator 9-25 it y of y y 00:00: [place] infection) infection) 00 Ri dical Branch 27 weeks 27 weeks Disease Active Unive rs gestation gestation 9-25 ity of of of 00:00: [place] 00 Medi tressa Branch Round Round Disease Active Univers ligament ligament 9-25 ity of pain pain 00:00: [place] 00 Medical Branch BMI BMI Disease Active Univers 35.0-35.9, 35.0-35.9, 9-23 it y of adult adult 00:00: [place] Medical Branch Elevated Elevated Disease Active Unive rs blood blood 8-09 ity of pressure pressure 00:00: [place] reading reading 00 Medical without without Branch [...] of high-risk high[place]risk 00[place] [facility] Branch History of History of Disease Active Overview : Univers anxiety anxiety 5- Formattin ity o f 00:00: g of this [place] 00 note Medical might be Branch different from the original. Reports on buspirone Multiparit Multiparit Disease Active U nivers y y 5- ity of 00:00: Medical Branch Obesity in Obesity in Disease Active U nivers 5 ity of 00:00: Medical Branch Frequent Frequent Disease Active Unive rs UTI UTI 10-09 ity of 00:00: Medical Branch Seizure Seizure Disease Active Overview: Univ ers disorder disorder - Formattin ity of in in 00:00: g of this [place] 00 note [facility] might be Branch different from the original. Last episode 2 months ago , not on meds Abdominal Abdominal Disease [facility] Abnormal Abnormal Disease [facility] Center UTI UTI Disease Active Univers symptoms symptoms 4-01 ity of 00:00: Medical Branch Abnormal Abnormal Disease Active Unive rs EKG EKG 8- ity of 00:00: Medical Branch Anxiety Anxiety Disease Active Univers during during 6-28 [place] of 00[place] third 00 Medica l trimester, trimester, Br anch antepartum antepartum Vaginal [...] Formattin ity of 00:00: g of this [place] note Medical might be Branch different from [...] Medical s Branch NITROFUR DRUG Active Palpitations 0 Un [place]ubree ANTOIN 8-03 ity of MONOHYD/ 00:00: [place] M-CRYST 00 Medical Branch LACOSAMI DRUG Active Hives 2020- Univers DE INGREDI 8-03 ity of 00:00: [place] 00 Medical Branch Nitrofur Drug Active Anxiety 2020- [facility] Monohyd/ 00:00: Medical M-Cryst 00 Center Lacosami Drug Active Hives 2020-[address] [facility] de Allergy 7[facility]16 [facility] 00:[facility]: Medical 00 Center LACOSAMI Allergy Active High Hives [facility] DE 7[facility]16 [facility] 00:[facility]: Medical 00 Center NITROFUR Allergy Active Med Anxiety 2020- [facility] ANTOIN [facility] MONOHYD/ 00:00: Medical M-CRYST 00 Center Doxycycl Drug Active Hives, Rash 2019- seizures [facility]e Allergy 2-12 [facility] 00:00: Medical 00 Center Tramadol Drug Active Other (See [address] Allergy Comments) 2-12 [facility] 00:00: Medical 00 [facility] Doxycycl Propensi Active Other - See 2019-0 seizures Univers ine ty to comments 2-12 ity of adverse 00:00: [place] reaction 00 [facility] Tramadol Propensi Active Other - See 0 seizures Univers ty to comments 2-12 ity of adverse 00:00: [place] reaction 00 [facility] DOXYCYCL DRUG Active Other-Cmnt 2019-0 Univ ers INE INGREDI 2-12 ity of 00:00: [place] 00 [facility] TRAMADOL DRUG Active Other-Cmnt 2019-0 Univ ers INGREDI 2-12 ity of 00:00: [place] 00 [facility] DOXYCYCL Allergy Active High Hives [facility] INE 2-12 [facility] 00:00: Medical 00 [facility] TRAMADOL Allergy Active Other 2019-[address] 2-12 [facility] 00:00: Medical 00 [facility] Social History Social Habit Start Date Stop Date Quantity Comments Source ASSERTION 2021-06-06 University 00:00:00 [facility] [place] [facility] History SDOH [facility] Alcohol Std Medical Cent[facility] r Drinks History SDOH [facility] Alcohol Binge Medical Zay ter History SDOH [facility] Alcohol Comment Medical C enter Exposure to 2022-01-11 2022-01-21 Not sure [facility] SARS-CoV-2 00:00:00 10:21:00 [facility] (event) [place] Alcohol intake 2020-09-24 2020-09-24 Ex-drinker [facility] 00:[facility]:00 00:00:00 (finding) [facility] History SDOH 2020-09-22 2020-09-[address] [facility] Alcohol Frequency 00:00:00 00:00:00 [facility] Tobacco use and 2020-09-21 2020-09-[address] [facility] exposure 00:00:00 00:00:[address] [facility] Sex Assigned At [address] [facility] 00:00:00 00:00:00 [facility] Smoking Status Start Date Stop Date Source Never smoked tobacco [facility] Medications Ordered Filled Start Stop Current Ordering Indication Dosage Frequency Signature Comments Components Source Medication Medication Date Date Medication? Clinician (SIG) Name Name proMETHazin 2021-03 Yes [id number] 25mg Take 1 Univers e 25 mg 1-15 tablet by ity of tablet 00:00: mouth [place] 00 every 4 Medical (four) Branch hours as needed for Nausea and Vomiting (N/V). lamoTRIgine 2021-03 Yes [id number] 75mg Take 3 Univers 25 mg 1-10 tablets by ity of tablet 00:00: mouth [place] 00 every Medical morning. Branch lamoTRIgine 2021-03 Yes [id number] 100mg Take 1 Univers (LAMICTAL) 1-10 tablet by ity of 100 mg 00:00: mouth at [place] tablet 00 bedtime. Medical Branch lamoTRIgine 2021-03 Yes [id number] 75mg Take 3 Univers 25 mg 1-10 tablets by ity of tablet 00:00: mouth [place] 00 every Medical morning. Branch lamoTRIgine 2021-03 Yes [id number] 100mg Take 1 Univers (LAMICTAL) 1-10 tablet by ity of 100 mg 00:00: mouth at [place] tablet 00 bedtime. Medical Branch SELECT-OB + 2021-03 Yes Univer s DHA 29 mg 0-29 ity of iron-1 mg 00:00: [place] -250 mg 00 Medical combo pack Branch SELECT-OB + 2021-03 Yes Univer s DHA 29 mg 0-29 ity of iron-1 mg 00:00: [place] -250 mg 00 Medical combo pack Branch SELECT-OB + 2021-03 Yes Univer s DHA 29 mg 0-29 ity of iron-1 mg 00:00: [place] -250 mg 00 Medical combo pack Branch SELECT-OB + 2021-03 Yes Univer s DHA 29 mg 0-29 ity of iron-1 mg 00:00: [place] -250 mg 00 Medical combo pack Branch SELECT-OB + 2021-03 Yes Univer s DHA 29 mg 0-29 ity of iron-1 mg 00:00: [place] -250 mg 00 Medical combo pack Branch SELECT-OB + 2021-03 Yes Univer s DHA 29 mg 0-29 ity of iron-1 mg 00:00: [place] -250 mg 00 Medical combo pack Branch SELECT-OB + 2021-03 Yes Univer s DHA 29 mg 0-29 ity of iron-1 mg 00:00: [place] -250 mg 00 Medical combo pack Branch SELECT-OB + 2021-03 Yes Univer s DHA 29 mg 0-29 ity of iron-1 mg 00:00: [place] -250 mg 00 Medical combo pack Branch SELECT-OB + 2021-03 Yes Univer s DHA 29 mg 0-29 ity of iron-1 mg 00:00: [place] -250 mg 00 Medical combo pack Branch SELECT-OB + 2021-03 Yes Univer s DHA 29 mg 0-29 ity of iron-1 mg 00:00: [place] -250 mg 00 Medical combo pack Branch foLIC acid 2021-03- Yes [id number] 4mg Take 4 Univers 1 mg tablet 0-27 12-27 tablets by i ty of 00:00: 05:59 mouth in [place] 00 :00 the Medical morning Branch for 60 days. foLIC acid 2021-03- Yes [id number] 4mg Take 4 Univers 1 mg tablet 0-27 12-27 tablets by i ty of 00:00: 05:59 mouth in [place] 00 :00 the Medical morning Branch for 60 days. foLIC acid 2021-03- Yes [id number] 4mg Take 4 Univers 1 mg tablet 0-27 12-27 tablets by i ty of 00:00: 05:59 mouth in [place] 00 :00 the Medical morning Branch for 60 days. foLIC acid 2021-03- Yes [id number] 4mg Take 4 Univers 1 mg tablet 0-27 12-27 tablets by i ty of 00:00: 05:59 mouth in [place] 00 :00 the Medical morning Branch for 60 days. foLIC acid 2021-03- Yes [id number] 4mg Take 4 Univers 1 mg tablet 0-27 12-27 tablets by i ty of 00:00: 05:59 mouth in [place] 00 :00 the Medical morning Branch for 60 days. foLIC acid 2021-03- Yes [id number] 4mg Take 4 Univers 1 mg tablet 0-27 12-27 tablets by i ty of 00:00: 05:59 mouth in [place] 00 :00 the Medical morning Branch for 60 days. foLIC acid 2021-03- Yes [id number] 4mg Take 4 Univers 1 mg tablet 0-27 12-27 tablets by i ty of 00:00: 05:59 mouth in [place] 00 :00 the Medical morning Branch for 60 days. foLIC acid 2021-03- Yes [id number] 4mg Take 4 Univers 1 mg tablet 0-27 12-27 tablets by i ty of 00:00: 05:59 mouth in [place] 00 :00 the Medical morning Branch for 60 days. foLIC acid 2021-03- Yes [id number] 4mg Take 4 Univers 1 mg tablet 0-27 12-27 tablets by i ty of 00:00: 05:59 mouth in [place] 00 :00 the Medical morning Branch for 60 days. foLIC acid 2021-03- Yes [id number] 4mg Take 4 Univers 1 mg tablet 0-27 12-27 tablets by i ty of 00:00: 05:59 mouth in [place] 00 :00 the Medical morning Branch for 60 days. foLIC acid 2021-03- Yes [id number] 4mg Take 4 Univers 1 mg tablet 0-27 12-27 tablets by i ty of 00:00: 05:59 mouth in [place] 00 :00 the Medical morning Branch for 60 days. foLIC acid 2021-03- Yes [id number] 4mg Take 4 Univers 1 mg tablet 0-27 12-27 tablets by i ty of 00:00: 05:59 mouth in [place] 00 :00 the Medical morning Branch for 60 days. foLIC acid 2021-03- Yes [id number] 4mg Take 4 Univers 1 mg tablet 0-27 12-27 tablets by i ty of 00:00: 05:59 mouth in [place] 00 :00 the Medical morning Branch for 60 days. foLIC acid 2021-03- Yes [id number] 4mg Take 4 Univers 1 mg tablet 0-27 12-27 tablets by i ty of 00:00: 05:59 mouth in [place] 00 :00 the Medical morning Branch for 60 days. foLIC acid 2021-03- Yes [id number] 4mg Take 4 Univers 1 mg tablet 0-27 12-27 tablets by i ty of 00:00: 05:59 mouth in [place] 00 :00 the Medical morning Branch for 60 days. foLIC acid 2021-03- Yes [id number] 4mg Take 4 Univers 1 mg tablet 0-27 12-27 tablets by i ty of 00:00: 05:59 mouth in [place] 00 :00 the Medical morning Branch for 60 days. foLIC acid 2021-03- Yes [id number] 4mg Take 4 Univers 1 mg tablet 0-27 12-27 tablets by i ty of 00:00: 05:59 mouth in [place] 00 :00 the Medical morning Branch for 60 days. albuterol 2021-03 Yes INHALE 1 Univ ers 90 0-11 PUFF BY ity of mcg/actuati 00:00: MOUTH [place] on inhaler 00 EVERY 4 Medica l HOURS Branch NEEDED albuterol 2021-03 Yes INHALE 1 Univ ers 90 0-11 PUFF BY ity of mcg/actuati 00:00: MOUTH [place] on inhaler 00 EVERY 4 Medica l HOURS Branch NEEDED albuterol 2021-03 Yes INHALE 1 Univ ers 90 0-11 PUFF BY ity of mcg/actuati 00:00: MOUTH [place] on inhaler 00 EVERY 4 Medica l HOURS Branch NEEDED albuterol 2021-03 Yes INHALE 1 Univ ers 90 0-11 PUFF BY ity of mcg/actuati 00:00: MOUTH [place] on inhaler 00 EVERY 4 Medica l HOURS Branch NEEDED albuterol 2021-03 Yes INHALE 1 Univ ers 90 0-11 PUFF BY ity of mcg/actuati 00:00: MOUTH [place] on inhaler 00 EVERY 4 Medica l HOURS Branch NEEDED albuterol 2021-03 Yes INHALE 1 Univ ers 90 0-11 PUFF BY ity of mcg/actuati 00:00: MOUTH [place] on inhaler 00 EVERY 4 Medica l HOURS Branch NEEDED albuterol 2021-03 Yes INHALE 1 Univ ers 90 0-11 PUFF BY ity of mcg/actuati 00:00: MOUTH [place] on inhaler 00 EVERY 4 Medica l HOURS Branch NEEDED albuterol 2021-03 Yes INHALE 1 Univ ers 90 0-11 PUFF BY ity of mcg/actuati 00:00: MOUTH [place] on inhaler 00 EVERY 4 Medica l HOURS Branch NEEDED albuterol 2021-03 Yes INHALE 1 Univ ers 90 0-11 PUFF BY ity of mcg/actuati 00:00: MOUTH [place] on inhaler 00 EVERY 4 Medica l HOURS Branch NEEDED albuterol 2021-03 Yes INHALE 1 Univ ers 90 0-11 PUFF BY ity of mcg/actuati 00:00: MOUTH [place] on inhaler 00 EVERY 4 Medica l HOURS Branch NEEDED albuterol 2021-03 Yes INHALE 1 Univ ers 90 0-11 PUFF BY ity of mcg/actuati 00:00: MOUTH [place] on inhaler 00 EVERY 4 Medica l HOURS Branch NEEDED albuterol 2021-03 Yes INHALE 1 Univ ers 90 0-11 PUFF BY ity of mcg/actuati 00:00: MOUTH [place] on inhaler 00 EVERY 4 Medica l HOURS Branch NEEDED albuterol 2021-03 Yes INHALE 1 Univ ers 90 0-11 PUFF BY ity of mcg/actuati 00:00: MOUTH [place] on inhaler 00 EVERY 4 Medica l HOURS Branch NEEDED albuterol 2021-03 Yes INHALE 1 Univ ers 90 0-11 PUFF BY ity of mcg/actuati 00:00: MOUTH [place] on inhaler 00 EVERY 4 Medica l HOURS Branch NEEDED albuterol 2021-03 Yes INHALE 1 Univ ers 90 0-11 PUFF BY ity of mcg/actuati 00:00: MOUTH [place] on inhaler 00 EVERY 4 Medica l HOURS Branch NEEDED albuterol 2021-03 Yes INHALE 1 Univ ers 90 0-11 PUFF BY ity of mcg/actuati 00:00: MOUTH [place] on inhaler 00 EVERY 4 Medica l HOURS Branch NEEDED albuterol 2021-03 Yes INHALE 1 Univ ers 90 0-11 PUFF BY ity of mcg/actuati 00:00: MOUTH [place] on inhaler 00 EVERY 4 Medica l HOURS Branch NEEDED lamoTRIgine 2021-03 Yes CHEW AND Un aubree 25 mg 0-06 SWALLOW 2 ity of disintegrat 00:00: TABLETS BY [place] ing tablet 00 MOUTH ONCE Med ical DAILY IN Branch THE MORNING lamoTRIgine 2021-03 Yes CHEW AND Un aubree 25 mg 0-06 SWALLOW 2 ity of disintegrat 00:00: TABLETS BY [place] ing tablet 00 MOUTH ONCE Med ical DAILY IN Branch THE MORNING lamoTRIgine 2021-03 Yes CHEW AND Un aub[place] 25 mg 0-06 SWALLOW 2 ity of disintegrat 00:00: TABLETS BY [place] ing tablet 00 MOUTH ONCE Med ical DAILY IN Branch THE MORNING lamoTRIgine 2021-03 Yes CHEW AND Un aub[place] 25 mg 0-06 SWALLOW 2 ity of disintegrat 00:00: TABLETS BY [place] ing tablet 00 MOUTH ONCE Med ical DAILY IN Branch THE MORNING lamoTRIgine 2021-03 Yes CHEW AND Un aub[place] 25 mg 0-06 SWALLOW 2 ity of disintegrat 00:00: TABLETS BY [place] ing tablet 00 MOUTH ONCE Med ical DAILY IN Branch THE MORNING lamoTRIgine 2021-03 Yes CHEW AND Un a[place] 25 mg 0-06 SWALLOW 2 ity of disintegrat 00:00: TABLETS BY [place] ing tablet 00 MOUTH ONCE Med ical DAILY IN Branch THE MORNING lamoTRIgine 2021-03 Yes CHEW AND Un [place] 25 mg 0-06 SWALLOW 2 ity of disintegrat 00:00: TABLETS BY [place] ing tablet 00 MOUTH ONCE Med ical DAILY IN Branch THE MORNING lamoTRIgine 2021-03 Yes CHEW AND Un a[place] 25 mg 0-06 SWALLOW 2 ity of disintegrat 00:00: TABLETS BY [place] ing tablet 00 MOUTH ONCE Med ical DAILY IN Branch THE MORNING lamoTRIgine 2021-03 Yes CHEW AND Un [place] 25 mg 0-06 SWALLOW 2 ity of disintegrat 00:00: TABLETS BY [place] ing tablet 00 MOUTH ONCE Med ical DAILY IN Branch THE MORNING lamoTRIgine 2021-03 Yes CHEW AND Un aub[place] 25 mg 0-06 SWALLOW 2 ity of disintegrat 00:00: TABLETS BY [place] ing tablet 00 MOUTH ONCE Med ical DAILY IN Branch THE MORNING cyclobenzap 2021- No 10mg 10 mg, Uni vers rine 12-02 09-25 Oral, TID, ity of (FLEXERIL) 01:00: 21:40 1 dose, [place] as tablet 10 00 :00 First dose Medi tressa mg on Sun Branch 12/01/21 at 1999, Routine lamoTRIgine Yes 100mg Take 100 U nivers (LAMICTAL) 9-25 mg by ity of 100 mg 18:22: mouth at [place] tablet 12 bedtime. Medical 25 [facility] lamoTRIgine Yes 100mg Take 100 U nivers (LAMICTAL) 9-25 mg by ity of 100 mg 18:22: mouth at [place] tablet 12 bedtime. Medical 25 [facility] lamoTRIgine Yes 100mg Take 100 U nivers (LAMICTAL) 9-25 mg by ity of 100 mg 18:22: mouth at [place] tablet 12 bedtime. [facility] 25 [facility] lamoTRIgine Yes 100mg Take 100 U nivers (LAMICTAL) 9-25 mg by ity of 100 mg 18:22: mouth at [place] tablet 12 bedtime. Medical 25 [facility] Branch lamoTRIgine Yes 100mg Take 100 U nivers (LAMICTAL) 9-25 mg by ity of 100 mg 18:22: mouth at [place] tablet 12 bedtime. Medical 25 [facility] Branch lamoTRIgine Yes 100mg Take 100 U nivers (LAMICTAL) 9-25 mg by ity of 100 mg 18:22: mouth at [place] tablet 12 bedtime. Medical 25 [facility] Branch lamoTRIgine Yes 100mg Take 100 U nivers (LAMICTAL) 9-25 mg by ity of 100 mg 18:22: mouth at [place] tablet 12 bedtime. Medical 25 [facility] Branch lamoTRIgine Yes 100mg Take 100 U nivers (LAMICTAL) 9-25 mg by ity of 100 mg 18:22: mouth at [place] tablet 12 bedtime. Medical 25 [facility] Branch lamoTRIgine Yes 100mg Take 100 U nivers (LAMICTAL) 9-25 mg by ity of 100 mg 18:22: mouth at [place] tablet 12 bedtime. Medical 25 [facility] Branch lamoTRIgine Yes 100mg Take 100 U nivers (LAMICTAL) 9-25 mg by ity of 100 mg 18:22: mouth at [place] tablet 12 bedtime. Medical 25 [facility] Branch lamoTRIgine Yes 100mg Take 100 U nivers (LAMICTAL) 9-25 mg by ity of 100 mg 18:22: mouth at [place] tablet 12 bedtime. Medical 25 [facility] Branch lamoTRIgine Yes 100mg Take 100 U nivers (LAMICTAL) 9-25 mg by ity of 100 mg 18:22: mouth at [place] tablet 12 bedtime. Medical 25 [facility] Branch lamoTRIgine Yes 100mg Take 100 U nivers (LAMICTAL) 9-25 mg by ity of 100 mg 18:22: mouth at [place] tablet 12 bedtime. Medical 25 [facility] Branch lamoTRIgine Yes 100mg Take 100 U nivers (LAMICTAL) 9-25 mg by ity of 100 mg 18:22: mouth at [place] tablet [address] Branch lamoTRIgine Yes 100mg Take 100 U nivers (LAMICTAL) 9-25 mg by ity of 100 mg 18:22: mouth at [place] tablet [address] Branch lamoTRIgine Yes 100mg Take 100 U nivers (LAMICTAL) 9-25 mg by ity of 100 mg 18:22: mouth at [place] tablet [address] lamoTRIgine Yes 100mg Take 100 U nivers (LAMICTAL) 9-25 mg by ity of 100 mg 18:22: mouth at [place] tablet [address] lamoTRIgine Yes 100mg Take 100 U nivers (LAMICTAL) 9-25 mg by ity of 100 mg 18:22: mouth at [place] tablet [address] lamoTRIgine Yes 100mg Take 100 U nivers (LAMICTAL) 9-25 mg by ity of 100 mg 18:22: mouth at [place] tablet [address] lamoTRIgine Yes 100mg Take 100 U nivers (LAMICTAL) 9-25 mg by ity of 100 mg 18:22: mouth at [place] tablet [address] lamoTRIgine Yes 100mg Take 100 U nivers (LAMICTAL) 9-25 mg by ity of 100 mg 18:22: mouth at [place] tablet [address] lamoTRIgine Yes 100mg Take 100 U nivers (LAMICTAL) 9-25 mg by ity of 100 mg 18:22: mouth at [place] tablet [address] lamoTRIgine Yes 100mg Take 100 U nivers (LAMICTAL) 9-25 mg by ity of 100 mg 18:22: mouth at [place] tablet [address] cyclobenzap 2021- Yes [id number] 10mg Take 1 Univers rine 10 mg 9-25 10-01 tablet by ity of tablet 00:00: 04:59 mouth in [place] 00 :00 the Medical morning Branch and 1 tablet at noon and 1 tablet in the evening. Do all this for 15 doses. cyclobenzap 2021-0 2021- Yes [id number] 10mg Take 1 Univers rine 10 mg 9-25 10-01 tablet by ity of tablet 00:00: 04:59 mouth in [place] 00 :00 the Medical morning Branch and 1 tablet at noon and 1 tablet in the evening. Do all this for 15 doses. hydrOXYzine 2021-0 Yes Univer s 25 mg/mL 9-16 ity of injection 00:00: [place] Medical Branch hydrOXYzine 2-0 Yes Univer s 25 mg/mL 9-16 ity of injection 00:00: [place] [id number] Medical Branch hydrOXYzine 2021-0 Yes Univer s 25 mg/mL 9-16 ity of injection 00:00: [place] Medical Branch hydrOXYzine 2021-0 Yes Univer s 25 mg/mL 9-16 ity of injection 00:00: [place] Medical Branch hydrOXYzine 2-0 Yes Univer s 25 mg/mL 9-16 ity of injection 00:00: [place] [address] Medical Branch hydrOXYzine 2-0 Yes Univer s 25 mg/mL 9-16 ity of injection 00:00: [place] [address] Medical Branch hydrOXYzine 2-0 Yes Univer s 25 mg/mL 9-16 ity of injection 00:00: [place] [address] Medical Branch hydrOXYzine 2-0 Yes Univer s 25 mg/mL 9-16 ity of injection 00:00: [place] [address] Medical Branch hydrOXYzine 2-0 Yes Univer s 25 mg/mL 9-16 ity of injection 00:00: [place] Medical Branch hydrOXYzine 2-0 Yes Univer s 25 mg/mL 9-16 ity of injection 00:00: [place] [address] Medical Branch hydrOXYzine 2-0 Yes Univer s 25 mg/mL 9-16 ity of injection 00:00: [place] Medical Branch hydrOXYzine 2-0 Yes Univer s 25 mg/mL 9-16 ity of injection 00:00: [place] [address] Medical Branch hydrOXYzine 2-0 Yes Univer s 25 mg/mL 9-16 ity of injection 00:00: [place] Medical Branch hydrOXYzine 2-0 Yes Univer s 25 mg/mL 9-16 ity of injection 00:00: [place] 00 Medical Branch hydrOXYzine 2-0 Yes Univer s 25 mg/mL 9-16 ity of injection 00:00: [place] 00 Medical Branch hydrOXYzine 2-0 Yes Univer s 25 mg/mL 9-16 ity of injection 00:00: [place] 00 Medical Branch hydrOXYzine 2-0 Yes Univer s 25 mg/mL 9-16 ity of injection 00:00: [place] [address] Medical Branch hydrOXYzine 2-0 Yes Univer s 25 mg 9-13 ity of capsule 00:00: [place] [address] Medical Branch hydrOXYzine 2-0 Yes Univer s 25 mg 9-13 ity of capsule 00:00: [place] [address] Medical Branch hydrOXYzine 2-0 Yes Univer s 25 mg 9-13 ity of capsule 00:00: [place] [place] [address] [facility] hydrOXYzine 2021-0 Yes Univer s 25 mg 9-13 ity of capsule 00:00: [place] [address] [facility] hydrOXYzine 2-0 2022- No Unive rs 25 mg 9-13 11-10 ity of capsule 00:00: 00:00 [place] 00 :00 Medical [facility] hydrOXYzine 2-0 2022- No Unive rs 25 mg 9-13 11-10 ity of capsule 00:00: 00:00 [place] 00 :00 Medical Branch hydrOXYzine 2022-0 2022- No Unive rs 25 mg 9-13 11-10 ity of capsule 00:00: 00:00 [place] 00 :00 Medical Branch hydrOXYzine 2022-0 2022- No Unive rs 25 mg 9-13 11-10 ity of capsule 00:00: 00:00 [place] 00 :00 Medical Branch hydrOXYzine 2022-0 2022- No Unive rs 25 mg 9-13 11-10 ity of capsule 00:00: 00:00 [place] 00 :00 Medical Branch lamoTRIgine 2022-0 Yes 25mg Take 25 mg Univers 25 mg 9-12 by mouth ity of tablet 00:00: every [place] 00 morning. Medical Branch lamoTRIgine 2022-0 Yes 25mg Take 25 mg Univers 25 mg 9-12 by mouth ity of tablet 00:00: every [place] 00 morning. Medical Branch lamoTRIgine 2-0 Yes 25mg Take 25 mg Univers 25 mg 9-12 by mouth ity of tablet 00:00: every [place] 00 morning. [facility] lamoTRIgine 2021-0 Yes 25mg Take 25 mg Univers 25 mg 9-12 by mouth ity of tablet 00:00: every [place] 00 morning. [facility] lamoTRIgine 2021-0 2- No 25mg Take 25 mg Univers 25 mg 9-12 11-10 by mouth ity of tablet 00:00: 00:00 every [place] 00 :00 morning. [facility] lamoTRIgine 2021-0 2- No 25mg Take 25 mg Univers 25 mg 9-12 11-10 by mouth ity of tablet 00:00: 00:00 every [place] 00 :00 morning. [facility] lamoTRIgine 2021-0 2021- No 25mg Take 25 mg Univers 25 mg 9-12 11-10 by mouth ity of tablet 00:00: 00:00 every [place] 00 :00 morning. [facility] lamoTRIgine 2021-0 2021- No 25mg Take 25 mg Univers 25 mg 9-12 11-10 by mouth ity of tablet 00:00: 00:00 every [place] 00 :00 morning. [facility] Branch lamoTRIgine 2021-0 2021- No 25mg Take 25 mg Univers 25 mg 9-12 11-10 by mouth ity of tablet 00:00: 00:00 every [place] 00 :00 morning. [facility] Branch lamoTRIgine 0 Yes 100mg Take 100 U nivers (LAMICTAL) 8-29 mg by ity of 100 mg 15:28: mouth at [place] tablet [address] Branch lamoTRIgine 0 Yes 100mg Take 100 U nivers (LAMICTAL) 8-29 mg by ity of 100 mg 15:28: mouth at [place] tablet [address] Branch lamoTRIgine 0 Yes 100mg Take 100 U nivers (LAMICTAL) 8-29 mg by ity of 100 mg 15:28: mouth at [place] tablet [address] Branch lamoTRIgine 0 Yes 100mg Take 100 U nivers (LAMICTAL) 8-29 mg by ity of 100 mg 15:28: mouth at [place] tablet [address] Branch lamoTRIgine 0 Yes 100mg Take 100 U nivers (LAMICTAL) 8-29 mg by ity of 100 mg 15:28: mouth at [place] tablet [address] Branch lamoTRIgine 0 Yes 100mg Take 100 U nivers (LAMICTAL) 8-29 mg by ity of 100 mg 15:28: mouth at [place] tablet [address] lamoTRIgine 0 Yes 100mg Take 100 U nivers (LAMICTAL) 8-29 mg by ity of 100 mg 15:28: mouth at [place] tablet [address] lamoTRIgine 0 Yes 100mg Take 100 U nivers (LAMICTAL) 8-29 mg by ity of 100 mg 15:28: mouth at [place] tablet [address] lamoTRIgine 0 Yes 100mg Take 100 U nivers (LAMICTAL) 8-29 mg by ity of 100 mg 15:28: mouth at [place] tablet [address] lamoTRIgine 0 Yes 100mg Take 100 U nivers (LAMICTAL) 8-29 mg by ity of 100 mg 15:28: mouth at [place] tablet [address] lamoTRIgine 0 Yes 100mg Take 100 U nivers (LAMICTAL) 8-29 mg by ity of 100 mg 15:28: mouth at [place] tablet [address] lamoTRIgine 0 Yes 100mg Take 100 U nivers (LAMICTAL) 8-29 mg by ity of 100 mg 15:28: mouth at [place] tablet [address] lamoTRIgine 0 Yes 100mg Take 100 U nivers (LAMICTAL) 8-29 mg by ity of 100 mg 15:28: mouth at [place] tablet [address] lamoTRIgine 0 Yes Univer s (LAMICTAL) 6-15 ity of 100 mg 00:00: [place] tablet 00 Medical Branch lamoTRIgine 2021-0 Yes Univer s (LAMICTAL) 6-15 ity of 100 mg 00:00: [place] tablet 00 [facility] Branch lamoTRIgine 0 Yes Univer s (LAMICTAL) 6-15 ity of 100 mg 00:00: [place] tablet 00 Medical Branch lamoTRIgine 0 Yes Univer s (LAMICTAL) 6-15 ity of 100 mg 00:00: [place] tablet 00 Medical Branch lamoTRIgine 0 2022- No Unive rs (LAMICTAL) 6-15 11-10 ity of 100 mg 00:00: 00:00 [place] tablet 00 :00 Medical Branch lamoTRIgine 2021-0 2022- No Unive rs (LAMICTAL) 6-15 11-10 ity of 100 mg 00:00: 00:00 [place] tablet 00 :00 Medical Branch lamoTRIgine 0 2021- No Unive rs (LAMICTAL) 6-15 11-10 ity of 100 mg 00:00: 00:00 [place] tablet 00 :00 Medical Branch lamoTRIgine 0 2022- No Unive rs (LAMICTAL) 6-15 11-10 ity of 100 mg 00:00: 00:00 [place] tablet 00 :00 Medical Branch lamoTRIgine 2021-0 2022- No Unive rs (LAMICTAL) 6-15 11-10 ity of 100 mg 00:00: 00:00 [place] tablet 00 :00 Medical Branch busPIRone 2021-0 Yes [id number] 18.75mg Take 2.5 Univers 7.5 mg 5-12 tablets by ity of tablet 00:00: mouth 3 (three) Medical times Branch daily. busPIRone 2021-0 Yes [id number] 18.75mg Take 2.5 Univers 7.5 mg 5-12 tablets by ity of tablet 00:00: mouth 3 [place] (three) Medical times Branch daily. busPIRone 2021-0 Yes [id number] 18.75mg Take 2.5 Univers 7.5 mg 5-12 tablets by ity of tablet 00:00: mouth 3 [place] (three) Medical times Branch daily. busPIRone 2021-0 Yes [id number] 18.75mg Take 2.5 Univers 7.5 mg 5-12 tablets by ity of tablet 00:00: mouth 3 [place] (three) Medical times Branch daily. busPIRone 2021-0 Yes [id number] 18.75mg Take 2.5 Univers 7.5 mg 5-12 tablets by ity of tablet 00:00: mouth (three) Medical times Branch daily. busPIRone 2022-0 Yes [id number] 18.75mg Take 2.5 Univers 7.5 mg 5-12 tablets by ity of tablet 00:00: mouth (three) Medical times Branch daily. busPIRone 2022-0 Yes [id number] 18.75mg Take 2.5 Univers 7.5 mg 5-12 tablets by ity of tablet 00:00: mouth (three) Medical times Branch daily. busPIRone 2022-0 Yes [id number] 18.75mg Take 2.5 Univers 7.5 mg 5-12 tablets by ity of tablet 00:00: mouth (three) Medical times Branch daily. busPIRone 2022-0 Yes [id number] 18.75mg Take 2.5 Univers 7.5 mg 5-12 tablets by ity of tablet 00:00: mouth (three) Medical times Branch daily. busPIRone 2022-0 Yes [id number] 18.75mg Take 2.5 Univers 7.5 mg 5-12 tablets by ity of tablet 00:00: mouth (three) Medical times Branch daily. busPIRone 2022-0 Yes [id number] 18.75mg Take 2.5 Univers 7.5 mg 5-12 tablets by ity of tablet 00:00: mouth (three) Medical times Branch daily. busPIRone 2022-0 Yes [id number] 18.75mg Take 2.5 Univers 7.5 mg 5-12 tablets by ity of tablet 00:00: mouth (three) Medical times Branch daily. busPIRone 2022-0 Yes [id number] 18.75mg Take 2.5 Univers 7.5 mg 5-12 tablets by ity of tablet 00:00: mouth (three) Medical times Branch daily. busPIRone 2022-0 Yes [id number] 18.75mg Take 2.5 Univers 7.5 mg 5-12 tablets by ity of tablet 00:00: mouth (three) Medical times Branch daily. busPIRone 2022-0 Yes [id number] 18.75mg Take 2.5 Univers 7.5 mg 5-12 tablets by ity of tablet 00:00: mouth (three) Medical times Branch daily. busPIRone 2022-0 Yes [id number] 18.75mg Take 2.5 Univers 7.5 mg 5-12 tablets by ity of tablet 00:00: mouth (three) Medical times Branch daily. busPIRone 2022-0 Yes [id number] 18.75mg Take 2.5 Univers 7.5 mg 5-12 tablets by ity of tablet 00:00: mouth (three) Medical times Branch daily. busPIRone 2022-0 Yes [id number] 18.75mg Take 2.5 Univers 7.5 mg 5-12 tablets by ity of tablet 00:00: mouth (three) Medical times Branch daily. busPIRone 2022-0 Yes [id number] 18.75mg Take 2.5 Univers 7.5 mg 5-12 tablets by ity of tablet 00:00: mouth (three) Medical times Branch daily. busPIRone 2022-0 Yes [id number] 18.75mg Take 2.5 Univers 7.5 mg 5-12 tablets by ity of tablet 00:00: mouth (three) Medical times Branch daily. busPIRone 2022-0 Yes [id number] 18.75mg Take 2.5 Univers 7.5 mg 5-12 tablets by ity of tablet 00:00: mouth (three) Medical times Branch daily. busPIRone 2022-0 Yes [id number] 18.75mg Take 2.5 Univers 7.5 mg 5-12 tablets by ity of tablet 00:00: mouth (three) Medical times Branch daily. busPIRone 2022-0 Yes [id number] 18.75mg Take 2.5 Univers 7.5 mg 5-12 tablets by ity of tablet 00:00: mouth (three) Medical times Branch daily. busPIRone 2022-0 Yes [id number] 18.75mg Take 2.5 Univers 7.5 mg 5-12 tablets by ity of tablet 00:00: mouth (three) Medical times Branch daily. busPIRone 2022-0 Yes [id number] 18.75mg Take 2.5 Univers 7.5 mg 5-12 tablets by ity of tablet 00:00: mouth (three) Medical times Branch daily. busPIRone 2022-0 Yes [id number] 18.75mg Take 2.5 Univers 7.5 mg 5-12 tablets by ity of tablet 00:00: mouth (three) Medical times Branch daily. busPIRone 2022-0 Yes [id number] 18.75mg Take 2.5 Univers 7.5 mg 5-12 tablets by ity of tablet 00:00: mouth (three) Medical times Branch daily. busPIRone 2022-0 Yes [id number] 18.75mg Take 2.5 Univers 7.5 mg 5-12 tablets by ity of tablet 00:00: mouth [place] (three) Medical times Branch daily. busPIRone 2022-0 Yes [id number] 18.75mg Take 2.5 Univers 7.5 mg 5-12 tablets by ity of tablet 00:00: mouth [place] () Medical times Branch daily. busPIRone 2022-0 Yes [id number] 18.75mg Take 2.5 Univers 7.5 mg 5-12 tablets by ity of tablet 00:00: mouth [place] (three) Medical times Branch daily. busPIRone 2022-0 Yes [id number] 18.75mg Take 2.5 Univers 7.5 mg 5-12 tablets by ity of tablet 00:00: mouth [place] () Medical times Branch daily. busPIRone 2022-0 Yes [id number] 18.75mg Take 2.5 Univers 7.5 mg 5-12 tablets by ity of tablet 00:00: mouth [place] (three) Medical times Branch daily. busPIRone 2022-0 Yes [id number] 18.75mg Take 2.5 Univers 7.5 mg 5-12 tablets by ity of tablet 00:00: mouth 3 [place] (three) Medical times Branch daily. busPIRone 2022-0 Yes [id number] 18.75mg Take 2.5 Univers 7.5 mg 5-12 tablets by ity of tablet 00:00: mouth 3 00 (three) Medical times Branch daily. busPIRone Yes [id number] 18.75mg Take 2.5 Univers 7.5 mg 5-12 tablets by ity of tablet 00:00: mouth 3 00 (three) Medical times Branch daily. busPIRone Yes [id number] 18.75mg Take 2.5 Univers 7.5 mg 5-12 tablets by ity of tablet 00:00: mouth 3 00 (three) Medical times Branch daily. busPIRone Yes [id number] 18.75mg Take 2.5 Univers 7.5 mg 5-12 tablets by ity of tablet 00:00: mouth 3 00 (three) Medical times Branch daily. Yes [id number] 1{tbl} Take 1 U nivers multivitami 5-05 tablet by ity of n ( 00:00: mouth [place] VITAMIN) 00 daily. Medical tablet Branch Yes [id number] 1{tbl} Take 1 U nivers multivitami 5-05 tablet by ity of n ( 00:00: mouth [place] VITAMIN) 00 daily. Medical tablet Branch Yes [id number] 1{tbl} Take 1 U nivers multivitami 5-05 tablet by ity of n ( 00:00: mouth [place] VITAMIN) 00 daily. Medical tablet Branch Yes [id number] 1{tbl} Take 1 U nivers multivitami 5-05 tablet by ity of n ( 00:00: mouth [place] VITAMIN) 00 daily. Medical tablet Branch Yes [id number] 1{tbl} Take 1 U nivers multivitami 5-05 tablet by ity of n ( 00:00: mouth [place] VITAMIN) 00 daily. Medical tablet Branch Yes [id number] 1{tbl} Take 1 U nivers multivitami 5-05 tablet by ity of n ( 00:00: mouth [place] VITAMIN) 00 daily. Medical tablet Branch Yes [id number] 1{tbl} Take 1 U nivers multivitami 5-05 tablet by ity of n ( 00:00: mouth [place] VITAMIN) 00 daily. Medical tablet Branch Yes [id number] 1{tbl} Take 1 U nivers multivitami 5-05 tablet by ity of n ( 00:00: mouth [place] VITAMIN) 00 daily. Medical tablet Branch Yes [id number] 1{tbl} Take 1 U nivers multivitami 5-05 tablet by ity of n ( 00:00: mouth [place] VITAMIN) 00 daily. Medical tablet Branch Yes [id number] 1{tbl} Take 1 U nivers multivitami 5-05 tablet by ity of n ( 00:00: mouth [place] VITAMIN) 00 daily. Medical tablet Branch Yes [id number] 1{tbl} Take 1 U nivers multivitami 5-05 tablet by ity of n ( 00:00: mouth [place] VITAMIN) 00 daily. Medical tablet Branch Yes [id number] 1{tbl} Take 1 U nivers multivitami 5-05 tablet by ity of n ( 00:00: mouth [place] VITAMIN) 00 daily. Medical tablet Branch Yes [id number] 1{tbl} Take 1 U nivers multivitami 5-05 tablet by ity of n ( 00:00: mouth [place] VITAMIN) 00 daily. Medical tablet Branch Yes [id number] 1{tbl} Take 1 U nivers multivitami 5-05 tablet by ity of n ( 00:00: mouth [place] VITAMIN) 00 daily. Medical tablet Branch Yes [id number] 1{tbl} Take 1 U nivers multivitami 5-05 tablet by ity of n ( 00:00: mouth [place] VITAMIN) 00 daily. Medical tablet Branch Yes [id number] 1{tbl} Take 1 U nivers multivitami 5-05 tablet by ity of n ( 00:00: mouth [place] VITAMIN) 00 daily. Medical tablet Branch Yes [id number] 1{tbl} Take 1 U nivers multivitami 5-05 tablet by ity of n ( 00:00: mouth [place] VITAMIN) 00 daily. Medical tablet Branch Yes [id number] 1{tbl} Take 1 U nivers multivitami 5-05 tablet by ity of n ( 00:00: mouth [place] VITAMIN) 00 daily. Medical tablet Branch Yes [id number] 1{tbl} Take 1 U nivers multivitami 5-05 tablet by ity of n ( 00:00: mouth [place] VITAMIN) 00 daily. Medical tablet Branch Yes [id number] 1{tbl} Take 1 U nivers multivitami 5-05 tablet by ity of n ( 00:00: mouth [place] VITAMIN) 00 daily. Medical tablet Branch Yes [id number] 1{tbl} Take 1 U nivers multivitami 5-05 tablet by ity of n ( 00:00: mouth [place] VITAMIN) 00 daily. Medical tablet Branch Yes [id number] 1{tbl} Take 1 U nivers multivitami 5-05 tablet by ity of n ( 00:00: mouth [place] VITAMIN) 00 daily. Medical tablet Branch Yes [id number] 1{tbl} Take 1 U nivers multivitami 5-05 tablet by ity of n ( 00:00: mouth [place] VITAMIN) 00 daily. Medical tablet Branch Yes [id number] 1{tbl} Take 1 U nivers multivitami 5-05 tablet by ity of n ( 00:00: mouth [place] VITAMIN) 00 daily. Medical tablet Branch Yes [id number] 1{tbl} Take 1 U nivers multivitami 5-05 tablet by ity of n ( 00:00: mouth [place] VITAMIN) 00 daily. Medical tablet Branch Yes [id number] 1{tbl} Take 1 U nivers multivitami 5-05 tablet by ity of n ( 00:00: mouth [place] VITAMIN) 00 daily. Medical tablet Branch Yes [id number] 1{tbl} Take 1 U nivers multivitami 5-05 tablet by ity of n ( 00:00: mouth [place] VITAMIN) 00 daily. Medical tablet Branch Yes [id number] 1{tbl} Take 1 U nivers multivitami 5-05 tablet by ity of n ( 00:00: mouth [place] VITAMIN) 00 daily. Medical tablet Branch Yes [id number] 1{tbl} Take 1 U nivers multivitami 5-05 tablet by ity of n ( 00:00: mouth [place] VITAMIN) 00 daily. Medical tablet Branch Yes [id number] 1{tbl} Take 1 U nivers multivitami 5-05 tablet by ity of n ( 00:00: mouth [place] VITAMIN) 00 daily. Medical tablet Branch Yes [id number] 1{tbl} Take 1 U nivers multivitami 5-05 tablet by ity of n ( 00:00: mouth [place] VITAMIN) 00 daily. Medical tablet Branch Yes [id number] 1{tbl} Take 1 U nivers multivitami 5-05 tablet by ity of n ( 00:00: mouth [place] VITAMIN) 00 daily. Medical tablet Branch Yes [id number] 1{tbl} Take 1 U nivers multivitami 5-05 tablet by ity of n ( 00:00: mouth [place] VITAMIN) 00 daily. Medical tablet Branch Yes [id number] 1{tbl} Take 1 U nivers multivitami 5-05 tablet by ity of n ( 00:00: mouth [place] VITAMIN) 00 daily. Medical tablet Branch Yes [id number] 1{tbl} Take 1 U nivers multivitami 5-05 tablet by ity of n ( 00:00: mouth [place] VITAMIN) 00 daily. Medical tablet Branch Yes [id number] 1{tbl} Take 1 U nivers multivitami 5-05 tablet by ity of n ( 00:00: mouth [place] VITAMIN) 00 daily. Medical tablet Branch Yes [id number] 1{tbl} Take 1 U nivers multivitami 5-05 [...] Medical 35 times Center daily. lithium 600 2021-0 Yes bipolar 600mg QD Take [address] [facility] MG capsule 7-19 disorder in mg by L [facility] 17:56: remission mouth Medical 35 every Center morning . busPIRone 2020-0 Yes 10mg Q.5D Take [address] [facility] (BUSPAR) 10 7-19 by mouth 2 [facility] tablet 17:56: (two) Medical 35 times Center daily. lithium 600 2020-0 Yes bipolar 600mg QD Take [address] [facility] MG capsule 7-19 disorder in mg by L ukes 17:56: remission mouth Medical 35 every Center morning . busPIRone 2020-0 Yes 10mg Q.5D Take [address] [facility] [address] [facility] (BUSPAR) 10 7-19 by mouth 2 [place] [facility] MG tablet 17:56: (two) Medical 35 times Center daily. lithium 300 2020-0 Yes bipolar 900mg QD Take [address] [facility] MG capsule 7-15 disorder in mg by L ukes 00:00: remission mouth Medical 00 nightly. Center lithium 300 2020-0 Yes bipolar 900mg QD Take [address] [facility] MG capsule 7-15 disorder in mg by L ukes 00:00: remission mouth Medical 00 nightly. Center lithium 300 2020-0 Yes bipolar 900mg QD Take [address] [facility] MG capsule 7-15 disorder in mg by L ukes 00:00: remission mouth Medical 00 nightly. Center Immunizations Ordered Filled Immunization Date Status Comments [facility] e Immunization Name Name Rho (d) Immune 2022-01-02 Completed University of Globulin 00:00:00 [facility] [place] [facility] Rho (d) Immune 2022-01-02 Completed [facility] of Globulin 00:00:00 [facility] [place] [facility] Rho (d) Immune 2022-01-02 Completed [facility] of Globulin 00:00:00 [facility] [place] [facility] Rho (d) Immune 2022-01-02 Completed University of Globulin 00:00:00 [facility] [place] [facility] Rho (d) Immune 2022-01-02 Completed University of Globulin 00:00:00 [facility] [place] [facility] Rho (d) Immune 2022-01-02 Completed University of Globulin 00:00:00 [facility] [place] [facility] Rho (d) Immune 2022-01-02 Completed University of Globulin 00:00:00 [facility] [place] [facility] Rho (d) Immune 2022-01-02 Completed University of Globulin 00:00:00 [facility] [place] [facility] Rho (d) Immune 2022-01-02 Completed University of Globulin 00:00:00 [facility] [place] [facility] Rho (d) Immune 2022-01-02 Completed University of Globulin 00:00:00 [facility] Rho (d) Immune 2022-01-02 Completed University of Globulin 00:00:00 [facility] Rho (d) Immune 2022-01-02 Completed University of Globulin 00:00:00 [facility] [place] [facility] Rho (d) Immune 2022-01-02 Completed University of Globulin 00:00:00 [facility] Rho (d) Immune 2022-01-02 Completed University of Globulin 00:00:00 [facility] Rho (d) Immune 2022-01-02 Completed University of Globulin 00:00:00 [facility] [place] [facility] Rho (d) Immune 2022-01-02 Completed University of Globulin 00:00:00 [facility] [place] [facility] Rho (d) Immune 2022-01-02 Completed University of Globulin 00:00:00 [facility] [place] [facility] TDAP 2021-12-17 Completed University of 00:00:00 [facility] [place] [facility] TDAP 2021-12-17 Completed University of 00:00:00 [facility] TDAP 2021-12-17 Completed University of 00:00:00 [facility] TDAP 2021-12-17 Completed University of 00:00:00 [facility] [place] [facility] TDAP 2021-12-17 Completed University of 00:00:00 [facility] TDAP 2021-12-17 Completed University of 00:00:00 [facility] TDAP 2021-12-17 Completed University of 00:00:00 [facility] [place] [facility] TDAP 2021-12-17 Completed University of 00:00:00 [facility] TDAP 2021-12-17 Completed University of 00:00:00 [facility] TDAP 2021-12-17 Completed University of 00:00:00 [facility] [place] [facility] TDAP 2021-12-17 Completed University of 00:00:00 [facility] TDAP 2021-12-17 Completed University of 00:00:00 [facility] TDAP 2021-12-17 Completed University of 00:00:00 [facility] TDAP 2021-12-17 Completed University of 00:00:00 [facility] [place] [facility] TDAP 2021-12-17 Completed University of 00:00:00 [facility] [place] [facility] TDAP 2021-12-17 Completed University of 00:00:00 [facility] [place] [facility] TDAP 2021-12-17 Completed University of 00:00:00 [place] [facility] TDAP 2021-12-17 Completed University of 00:00:00 [place] [facility] TDAP 2021-12-17 Completed University of 00:00:00 [place] [facility] TDAP 2021-12-17 Completed University of 00:00:00 [place] Medical [...] Branch HPV9 2019-05-17 Completed University of 00:00:00 [facility] HPV9 2019-05-17 Completed University of 00:00:00 [facility] HPV9 2019-05-17 Completed University of 00:00:00 [facility] HPV9 2019-05-17 Completed University of 00:00:00 [facility] TDAP (ADACEL) 2018-02-15 Completed University of VACCINE 00:00:00 [facility] TDAP (ADACEL) 2018-02-15 Completed University of VACCINE 00:00:00 [facility] TDAP (ADACEL) 2018-02-15 Completed University of VACCINE 00:00:00 [facility] TDAP (ADACEL) 2018-02-15 Completed University of VACCINE 00:00:00 [facility] TDAP (ADACEL) 2018-02-15 Completed University of VACCINE 00:00:00 [facility] TDAP (ADACEL) 2018-02-15 Completed University of VACCINE 00:00:00 [facility] TDAP (ADACEL) 2018-02-15 Completed University of VACCINE 00:00:00 [facility] TDAP (ADACEL) 2018-02-15 Completed University of VACCINE 00:00:00 [facility] TDAP (ADACEL) 2018-02-15 Completed University of VACCINE 00:00:00 [facility] TDAP (ADACEL) 2018-02-15 Completed University of VACCINE 00:00:00 [facility] TDAP (ADACEL) 2018-02-15 Completed University of VACCINE 00:00:00 [facility] TDAP (ADACEL) 2018-02-15 Completed University of VACCINE 00:00:00 [facility] TDAP (ADACEL) 2018-02-15 Completed University of VACCINE 00:00:00 [facility] TDAP (ADACEL) 2018-02-15 Completed University of VACCINE 00:00:00 [facility] TDAP (ADACEL) 2018-02-15 Completed University of VACCINE 00:00:00 [place] [facility] TDAP (ADACEL) 2018-02-15 Completed University of VACCINE 00:00:00 [facility] TDAP (ADACEL) 2018-02-15 Completed University of VACCINE 00:00:00 [facility] TDAP (ADACEL) 2018-02-15 Completed University of VACCINE 00:00:00 [facility] TDAP (ADACEL) 2018-02-15 Completed University of VACCINE 00:00:00 [facility] TDAP (ADACEL) 2018-02-15 Completed University of VACCINE 00:00:00 [facility] TDAP (ADACEL) 2018-02-15 Completed University of VACCINE 00:00:00 [facility] TDAP (ADACEL) 2018-02-15 Completed University of VACCINE 00:00:00 [facility] [place] [facility] TDAP (ADACEL) 2018-02-15 Completed University of VACCINE 00:00:00 [facility] TDAP (ADACEL) 2018-02-15 Completed University of VACCINE 00:00:00 [facility] [facility] TDAP (ADACEL) 2018-02-15 Completed [facility] VACCINE 00:00:00 [facility] TDAP (ADACEL) 2018-02-15 Completed [facility] VACCINE 00:00:00 [facility] TDAP (ADACEL) 2018-02-15 Completed [...] (ADACEL) 2018-02-15 Completed [facility] of VACCINE 00:00:00 [facility] TDAP (ADACEL) 2018-02-15 Completed [...] y of Vaccine Quad IM 3+ 00:00:00 [facility] Influenza Virus 2017-12-14 Completed Universit y of Vaccine Quad IM 3+ 00:00:00 [facility] Influenza Virus 2017-12-14 Completed Universit y of Vaccine Quad IM 3+ 00:00:00 [facility] Influenza Virus 2017-12-14 Completed Universit y of Vaccine Quad IM 3+ 00:00:00 [facility] Influenza Virus 2017-12-14 Completed Universit y of Vaccine Quad IM 3+ 00:00:00 [facility] Influenza Virus 2017-12-14 Completed Universit y of Vaccine Quad IM 3+ 00:00:00 [facility] Influenza Virus 2017-12-14 Completed Universit y of Vaccine Quad IM 3+ 00:00:00 [facility] Influenza Virus 2017-12-14 Completed Universit y of Vaccine Quad IM 3+ 00:00:00 [facility] Influenza Virus 2017-12-14 Completed Universit y of Vaccine Quad IM 3+ 00:00:00 [facility] Influenza Virus 2017-12-14 Completed Universit y of Vaccine Quad IM 3+ 00:00:00 [facility] Influenza Virus 2017-12-14 Completed Universit y of Vaccine Quad IM 3+ 00:00:00 [facility] Influenza Virus 2017-12-14 Completed Universit y of Vaccine Quad IM 3+ 00:00:00 [facility] Influenza Virus 2017-12-14 Completed Universit y of Vaccine Quad IM 3+ 00:00:00 [facility] Influenza Virus 2017-12-14 Completed Universit y of Vaccine Quad IM 3+ 00:00:00 [facility] Influenza Virus 2017-12-14 Completed Universit y of Vaccine Quad IM 3+ 00:00:00 [facility] Influenza Virus 2017-12-14 Completed Universit y of Vaccine Quad IM 3+ 00:00:00 [facility] Influenza Virus 2017-12-14 Completed Universit y of Vaccine Quad IM 3+ 00:00:00 [facility] Influenza Virus 2017-12-14 Completed Universit y of Vaccine Quad IM 3+ 00:00:00 [facility] Influenza Virus 2017-12-14 Completed Universit y of Vaccine Quad IM 3+ 00:00:00 [facility] Influenza Virus 2017-12-14 Completed Universit y of Vaccine Quad IM 3+ 00:00:00 [facility] Influenza Virus 2017-12-14 Completed Universit y of Vaccine Quad IM 3+ 00:00:00 [facility] Influenza Virus 2017-12-14 Completed Universit y of Vaccine Quad IM 3+ 00:00:00 [facility] Influenza Virus 2017-12-14 Completed Universit y of Vaccine Quad IM 3+ 00:00:00 [facility] Influenza Virus 2017-12-14 Completed Universit y of Vaccine Quad IM 3+ 00:00:00 [facility] Influenza Virus 2017-12-14 Completed Universit y of Vaccine Quad IM 3+ 00:00:00 [facility] Influenza Virus 2017-12-14 Completed Universit y of Vaccine Quad IM 3+ 00:00:00 [facility] Influenza Virus 2017-12-14 Completed Universit y of Vaccine Quad IM 3+ 00:00:00 [facility] Influenza Virus 2017-12-14 Completed Universit y of Vaccine Quad IM 3+ 00:00:00 [facility] Influenza Virus 2017-12-14 Completed Universit y of Vaccine Quad IM 3+ 00:00:00 [facility] Influenza Virus 2017-12-14 Completed Universit y of Vaccine Quad IM 3+ 00:00:00 [facility] Influenza Virus 2017-12-14 Completed Universit y of Vaccine Quad IM 3+ 00:00:00 [facility] Influenza Virus 2017-12-14 Completed Universit y of Vaccine Quad IM 3+ 00:00:00 [facility] Influenza Virus 2017-12-14 Completed Universit y of Vaccine Quad IM 3+ 00:00:00 [facility] Influenza Virus 2017-12-14 Completed Universit y of Vaccine Quad IM 3+ 00:00:00 [facility] Influenza Virus 2017-12-14 Completed Universit y of Vaccine Quad IM 3+ 00:00:00 [facility] Influenza Virus 2017-12-14 Completed Universit y of Vaccine Quad IM 3+ 00:00:00 [facility] Influenza Virus 2017-12-14 Completed Universit y of Vaccine Quad IM 3+ 00:00:00 [facility] Varicella 2016-05-24 Completed University of (varivax)(chicken [...] Hospital TDAP 2016-04-03 Completed [facility] 00:00:00 [facility] TDAP 2016-04-03 Completed [facility] 00:00:00 [facility] TDAP 2016-04-03 Completed [facility] 00[facility]00:00 [facility] TDAP 2016-04-03 Completed [facility] of 00:00:00 [facility] TDAP 2016-04-03 Completed [facility] 00:00:00 [facility] TDAP 2016-04-03 Completed [facility] of 00:00:00 [facility] TDAP 2016-04-03 Completed [facility] of 00:00:00 [facility] TDAP 2016-04-03 Completed [facility] of 00[facility]00:00 [facility] TDAP 2016-04-03 Completed [facility] of 00:00:00 [facility] TDAP 2016-04-03 Completed [facility] of 00:00:00 [facility] TDAP 2016-04-03 Completed [facility] of 00:00:00 [facility] TDAP 2016-04-03 Completed [facility] of 00:00:00 [facility] TDAP 2016-04-03 Completed University of 00:00:00 [facility] TDAP 2016-04-03 Completed [facility] of 00:00:00 [facility] TDAP 2016-04-03 Completed [facility] 00:00:00 [facility] TDAP 2016-04-03 Completed [facility] of 00:00:00 [facility] TDAP 2016-04-03 Completed [facility] 00[facility]00:00 [facility] TDAP 2016-04-03 Completed [facility] of 00:00:00 [facility] TDAP 2016-04-03 Completed [facility] of 00:00:00 [facility] TDAP 2016-04-03 Completed [facility] of 00:00:00 [facility] TDAP 2016-04-03 Completed [facility] of 00:00:00 [facility] TDAP 2016-04-03 Completed [facility] of 00:00:00 [facility] TDAP 2016-04-03 Completed [facility] of 00[facility]00:00 [facility] TDAP 2016-04-03 Completed [facility] of 00:00:00 [facility] TDAP 2016-04-03 Completed [facility] of 00:00:00 [facility] TDAP 2016-04-03 Completed [facility] of 00:00:00 [facility] TDAP 2016-04-03 Completed [facility] of 00:00:00 [facility] TDAP 2016-04-03 Completed [facility] of 00:00:00 [facility] TDAP 2016-04-03 Completed [facility] of 00:00:00 [facility] TDAP 2016-04-03 Completed [facility] of 00:00:00 [facility] TDAP 2016-04-03 Completed [facility] of 00:00:00 [facility] TDAP 2016-04-03 Completed [facility] of 00:00:00 [facility] TDAP 2016-04-03 Completed [facility] of 00:00:00 [facility] TDAP 2016-04-03 Completed [facility] of 00:00:00 [facility] Rho (d) Immune 2016-03-27 Completed University of Globulin 00:00:00 [facility] Rho (d) Immune 2016-03-27 Completed [facility] of Globulin 00:00:00 [facility] Rho (d) Immune 2016-03-27 Completed [facility] of Globulin 00:00:00 [facility] Rho (d) Immune 2016-03-27 Completed [facility] of Globulin 00:00:00 [facility] Rho (d) Immune 2016-03-27 Completed [facility] of Globulin 00:00:00 [facility] Rho (d) Immune 2016-03-27 Completed [facility] of Globulin 00:00:00 [facility] Rho (d) Immune 2016-03-27 Completed [facility] of Globulin 00:00:00 [facility] Rho (d) Immune 2016-03-27 Completed [facility] of Globulin 00:00:00 [facility] Rho (d) Immune 2016-03-27 Completed [facility] of Globulin 00:00:00 [facility] Rho (d) Immune 2016-03-27 Completed [facility] of Globulin 00:00:00 [facility] Rho (d) Immune 2016-03-27 Completed [facility] of Globulin 00:00:00 [facility] Rho (d) Immune 2016-03-27 Completed [facility] of Globulin 00:00:00 [facility] Rho (d) Immune 2016-03-27 Completed [facility] of Globulin 00:00:00 [facility] Rho (d) Immune 2016-03-27 Completed [facility] of Globulin 00:00:00 [facility] Rho (d) Immune 2016-03-27 Completed [facility] of Globulin 00:00:00 [facility] Rho (d) Immune 2016-03-27 Completed [facility] of Globulin 00:00:00 [facility] Rho (d) Immune 2016-03-27 Completed [facility] of Globulin 00:00:00 [facility] Rho (d) Immune 2016-03-27 Completed [facility] Globulin 00:00:00 [facility] Rho (d) Immune 2016-03-27 Completed [facility] of Globulin 00:00:00 [facility] Rho (d) Immune 2016-03-27 Completed [facility] of Globulin 00:00:00 [facility] Rho (d) Immune 2016-03-27 Completed [facility] of Globulin 00:00:00 [facility] Rho (d) Immune 2016-03-27 Completed [facility] of Globulin 00:00:00 [facility] Rho (d) Immune 2016-03-27 Completed [facility] of Globulin 00:00:00 [facility] Rho (d) Immune 2016-03-27 Completed [facility] of Globulin 00:00:00 [facility] Rho (d) Immune 2016-03-27 [...] Immune 2016-03-27 Completed [facility] of Globulin 00:00:00 [facility] Rho (d) Immune 2016-03-27 Completed [facility] of Globulin 00:00:00 [facility] Rho (d) Immune 2016-03-27 [...] WEIGHT 2020-09-21 19:00:00 80.786 kg Systolic blood 2022-01-21 16:22:00 132 mm[Hg] [facility]iver [facility] Diastolic blood 2022-01-21 16:22:00 79 mm[Hg] Unive rsity of [facility] Heart rate 2022-01-21 16:22:00 99 /min [facility] Body temperature 2022-01-21 16:22:00 36.11 Shira [facility] Respiratory rate 2022-01-21 16:22:00 17 /min [facility] Body height 2022-01-21 16:22:00 162.6 cm [facility] Body weight 2022-01-21 16:22:00 95.845 kg [facility] BMI 2022-01-21 16:22:00 36.27 kg/m2 [facility] Systolic blood 2022-01-16 19:35:00 121 mm[Hg] [facility] Diastolic blood 2022-01-16 19:35:00 79 mm[Hg] Unive rsity of pressure [facility] Heart rate 2022-01-16 19:35:00 94 /min [facility] Body temperature 2022-01-16 19:35:00 36.83 Shira [facility] Respiratory rate 2022-01-16 19:35:00 20 /min [facility] Body height 2022-01-16 19:35:00 162.6 cm [facility] Body weight 2022-01-16 19:35:00 95.936 kg [facility] BMI 2022-01-16 19:35:00 36.30 kg/m2 [facility] Systolic blood 2022-01-13 16:56:00 126 mm[Hg] [facility] Diastolic blood 2022-01-13 16:56:00 68 mm[Hg] [facility]ive rs[facility] Heart rate 2022-01-13 16:56:00 77 /min [facility] Body temperature 2022-01-13 16:56:00 36.5 Shira [facility] Respiratory rate 2022-01-13 16:56:00 17 /min [facility] Body height 2022-01-13 16:56:00 162.6 cm [facility] Body weight 2022-01-13 16:56:00 96.163 kg [facility] BMI 2022-01-13 16:56:00 36.39 kg/m2 [facility] Systolic blood 2022-01-09 18:46:00 115 mm[Hg] Univer [facility]ity of pressure [facility] Diastolic blood 2022-01-09 18:46:00 79 mm[Hg] Unive rsity of pressure [facility] Heart rate 2022-01-09 18:46:00 79 /min [facility] Body temperature 2022-01-09 18:46:00 36.67 Shira [facility] Respiratory rate 2022-01-09 18:46:00 18 /min [facility] Body height 2022-01-09 18:46:00 162.6 cm [facility] Body weight 2022-01-09 18:46:00 96.117 kg [facility] BMI 2022-01-09 18:46:00 36.37 kg/m2 [facility] Systolic blood 2022-01-06 19:15:00 132 mm[Hg] [facility] of pressure [facility] Diastolic blood 2022-01-06 19:15:00 74 mm[Hg] [facility]ive rs[facility] pressure [facility] Heart rate 2022-01-06 19:15:00 86 /min [facility] Body temperature 2022-01-06 19:15:00 36.78 Shira [facility] Respiratory rate 2022-01-06 19:15:00 18 /min [facility] Body height 2022-01-06 19:15:00 162.6 cm [facility] Body weight 2022-01-06 19:15:00 94.944 kg [facility] BMI 2022-01-06 19:15:00 35.93 kg/m2 [facility] Systolic blood 2022-01-02 18:24:00 111 mm[Hg] [facility] Diastolic blood 2022-01-02 18:24:00 69 mm[Hg] [facility] Heart rate 2022-01-02 18:24:00 83 /min [facility] Body temperature 2022-01-02 18:24:00 36.28 Shira [facility] Respiratory rate 2022-01-02 18:24:00 17 /min [facility] Body height 2022-01-02 18:24:00 162.6 cm [facility] Body weight 2022-01-02 18:24:00 94.575 kg [facility] BMI 2022-01-02 18:24:00 35.79 kg/m2 [facility] Systolic blood 2021-12-30 20:46:00 137 mm[Hg] [facility] Diastolic blood 2021-12-30 20:46:00 77 mm[Hg] [facility] rs[facility] Heart rate 2021-12-30 20:46:00 89 /min [facility] Body temperature 2021-12-30 20:46:00 36.22 Shira [facility] Respiratory rate 2021-12-30 20:46:00 18 /min [facility] Body height 2021-12-30 20:46:00 162.6 cm [facility] Body weight 2021-12-30 20:46:00 95.851 kg [facility] BMI 2021-12-30 20:46:00 36.27 kg/m2 [facility] Systolic blood 2021-12-17 19:45:00 127 mm[Hg] [facility] Diastolic blood 2021-12-17 19:45:00 84 mm[Hg] [facility] Heart rate 2021-12-17 19:45:00 107 /min [facility] Body temperature 2021-12-17 19:45:00 35.94 Shira [facility] Respiratory rate 2021-12-17 19:45:00 18 /min [facility] Body height 2021-12-17 19:45:00 162.6 cm [facility] Body weight 2021-12-17 19:45:00 94.065 kg [facility] BMI 2021-12-17 19:45:00 35.60 kg/m2 [facility] Heart rate 2021-12-01 21:00:00 90 /min [facility] Oxygen saturation in 2021-12-01 21:00:00 99 /min University of Arterial blood by [place] [employer] tressa [facility] oxim[facility] Branch Systolic blood 2021-12-01 20:45:00 136 mm[Hg] [facility]ity of pressure [facility] Diastolic blood 2021-12-01 20:45:00 73 mm[Hg] [facility]ive rsity of [facility] Body temperature 2021-12-01 20:12:00 36.33 Shira [facility] Respiratory rate 2021-12-01 20:12:00 18 /min [facility] Body weight 2021-12-01 19:42:00 92.987 kg [facility] BMI 2021-12-01 19:42:00 35.19 kg/m2 [facility] Systolic blood 2021-11-30 16:47:00 133 mm[Hg] [facility] Diastolic blood 2021-11-30 16:47:00 73 mm[Hg] [facility]ive rsity of [facility] Heart rate 2021-11-30 16:47:00 96 /min [facility] Body temperature 2021-11-30 16:47:00 36.17 Shira [facility] Respiratory rate 2021-11-30 16:47:00 18 /min [facility] Body weight 2021-11-30 16:47:00 94.031 kg [facility] BMI 2021-11-30 16:47:00 35.58 kg/m2 [facility] Oxygen saturation in 2021-11-30 16:47:00 97 /min [facility] of Arterial blood by [place] [employer] tressa [facility] Systolic blood 2021-11-29 13:03:00 113 mm[Hg] [facility]ity [facility] Diastolic blood 2021-11-29 13:03:00 65 mm[Hg] [facility] Heart rate 2021-11-29 13:03:00 82 /min [facility] Body temperature 2021-11-29 13:03:00 36.89 Shira [facility] of [facility] Respiratory rate 2021-11-29 13:03:00 20 /min [facility] Body height 2021-11-29 13:03:[address] [facility] Body weight 2021-11-29 13:03:[address] [facility] BMI 2021-11-29 13:03:00 35.19 kg/m2 [facility] Oxygen saturation in 2021-11-29 13:03:00 100 /min [facility] Arterial blood by [facility] Pulse oximetry [place] HEIGHT 2020-09-22 06:00:00 152.4 cm WEIGHT 2020-09-22 06:00:00 80.8 kg HEIGHT 2020-09-21 19:00:00 152.4 cm WEIGHT 2020-09-21 19:00:00 80.786 kg Procedures Procedure Date / Time Performing Clinician Source Performed NON-STRESS TEST 2022-01-21 18:09:21 [facility]21 [facility] 2022-01-16 20:01:49 Amy Sharma [facility] NON-STRESS TEST 2022-01-13 17:45:33 [facility] 2022-01-13 00:00:00 [facility] 2022-01-09 18:51:00 [facility]ettepe [facility]ESS [facility] 2022-01-07 14:56:27 AkinGurmeet nairilola C [facility] POCT URINALYSIS 2022-01-06 19:16:00 [facility] PATIENT CORRESPONDENCE 2022-01-03 05:01:00 Doctor Thien, [facility] (LETTERS, USPS [place] [facility] [place] DOCUMENTATION) NON-STRESS TEST 2022-01-02 20:04:00 Kevin Singh [facility] POCT URINALYSIS 2022-01-02 00:00:00 [facility] POCT URINALYSIS 2021-12-30 20:47:00 [facility] POCT URINALYSIS 2021-12-17 19:46:00 [facility] TDAP VACCINE, >11 YRS, IM 2021-12-17 19:45:[address] [facility] URINALYSIS 2021-12-01 21:41:00 Clayton Sherylpatrick braxton [facility] CONSENT/REFUSAL FOR 2021-12-01 19:40:[address] [facility] DIAGNOSIS AND TREATMENT [place] [facility] CONSENT/REFUSAL FOR 2021-11-30 16:38:[address] [facility] 2021-11-29 00:00:00 [facility] AUTHORIZATION FOR RELEASE 2021-07-19 05:01:00 Doctor Thien [facility] [place] Plan of Care Planned Activity Planned Date [...] (3 - Td or Tdap)] Future Scheduled 2022-01-12 INFLUENZA VACCINE [facility] 19:54:31 [code = INFLUENZA VACCINE] Future Scheduled 2022-01-12 HEPATITIS B VACCINES Met [facility] Test 19:54:31 (1 of 3 - 3-dose series) [code = HEPATITIS B VACCINES (1 of 3 - 3-dose series)] Future Scheduled 2022-01-12 COVID-19 VACCINE (#1) [facility] Test 19:54:31 [code = COVID-19 VACCINE (#1)] Future Scheduled 2022-01-12 [facility] 19:54:31 Chlamydia trachomatis (procedure) [code = 018624348] Future Scheduled 2022-01-[address] [facility] Test 19:54:31 (procedure) [code = 960598470] Future Scheduled 2022-01-12 [facility] 19:54:31 malignant neoplasm of cervix (procedure) [code = 693058959] Future Scheduled 2021-11-[address] [facility] Test 06:02:25 (procedure) [code = 996451132] Future Scheduled 2021-11-09 [facility] Test 06:02:25 malignant neoplasm of cervix (procedure) [code = 602100078] Future Scheduled 2021-11-09 INFLUENZA VACCINE [facility] Test 06:02:25 [code = INFLUENZA VACCINE] Future Scheduled 2021-11-09 HEPATITIS B VACCINES Met [facility] Test 06:02:25 (1 of 3 - 3-dose series) [code = HEPATITIS B VACCINES (1 of 3 - 3-dose series)] Future Scheduled 2021-11-09 COVID-19 VACCINE (#1) [facility] Test 06:02:25 [code = COVID-19 VACCINE (#1)] Future Scheduled 2021-11-09 [facility] 06:02:25 Chlamydia trachomatis (procedure) [code = 416292406] Future Scheduled 2021-11-[address] [facility] Test 06:02:25 (procedure) [code = 109273795] Future Scheduled 2021-11-09 [facility] 06:02:25 malignant neoplasm of cervix (procedure) [code = 215461403] Future Scheduled 2021-11-09 INFLUENZA VACCINE [facility] 06:02:25 [code = INFLUENZA VACCINE] Future Scheduled 2021-11-09 HEPATITIS B VACCINES [facility] Test 06:02:25 (1 of 3 - 3-dose series) [code = HEPATITIS B VACCINES (1 of 3 - 3-dose series)] Future Scheduled 2021-11-09 COVID-19 VACCINE (#1) [facility] Test 06:02:25 [code = COVID-19 VACCINE (#1)] Future Scheduled 2021-11-09 [facility] 06:02:25 Chlamydia trachomatis (procedure) [code = 714410660] Future Scheduled 2021-11-[address] [facility] cervix (procedure) [code = 241693456] Future Scheduled [address] [facility]00 [facility] cervix (procedure) [code = 037288822] Future Scheduled [address] [facility] 00[facility]00:00 [facility] cervix (procedure) [code = 200621234] Future Scheduled [address] [facility] 00:[facility]:00 (procedure) [code = [facility] 49971183] Future Scheduled [address] [facility] 00:00:00 (procedure) [code = [facility] 05827138] Future Scheduled [address] [facility] Test 00:00:00 (procedure) [code = [facility] 50380087] Future Scheduled 2015 HEPATITIS C SCREENING [facility] (procedure[facility] [code = 088669419] Future Scheduled [facility] malignant neoplasm of cervix (procedure) [code = 748309799] Future Scheduled [facility] [code = INFLUENZA VACCINE] Encounters Start End Encounter Admission Attending Care Care Encounter Source Date/Time Date/Time Type Type Clinicians Facility Department ID 2021-12-01 Outpatient P [facility] MARGOT [id number] Univers 18:22:19 [facility] 2021-01-07 Emergency [facility] [id number] Univers 07:14:20 [facility] 2021-01-07 Emergency [facility] [id number] Univers 06:42:50 ity of [facility] 2021-01-07 Emergency [facility] [id number] Univers 06:25:23 ity of [facility] 2021-01-07 Emergency [facility] [id number] Univers 03:52:48 ity of [facility] 2021-01-07 Emergency [facility] [id number] Univers 03:25:06 ity of [facility] 2021-01-06 Emergency [facility] [id number] Univers 03:53:51 ity of [facility] 2020-09-21 Inpatient ER TESHA, [facility] Gastro [id number] [facility] 19:23:00 JOANNE 2022 2022 Outpatient R IRMA, [facility] [id number] Univers 15:00:00 15:00:00 ALMA ityolie o f [facility] 2022-01-21 2022-01-21 Outpatient R FARHAN [facility] [id number] Univers 10:30:00 10:50:45 RADHA ityolie [facility] 2022-01-21 2022-01-21 Routine Provider, Reddy-Rmchp Temp [facility] 1 .2.840.114 [id number] Univers 10:30:00 10:50:45 Radha Nobles SUPERVISOR [employer]ESS[employer] 350.1.13. 10 ity of Visit REGIONAL 4.2.7.2.686 [place] as MATERNAL [phone] Med ical & CHILD [address] [place] [address] 2022-01-16 2022-01-16 Outpatient R ZACHARY [facility] [id number] Univers 13:30:00 14:01:20 AMY ity [facility] 2022-01-16 2022-01-16 Routine Risk, Nkq-Ltnyg-Uf/High [facility] 1. 2.840.114 [id number] Univers 13:30:00 14:01:20 Amy Sharma SUPERVISOR CIG[employer] PROCESSING 350.1.13.10 ity of Visit REGIONAL 4.2.7.2.686 [place] as MATERNAL [id number] Med ical & CHILD [address] [place] [address] 2022-01-15 2022-01-15 Telephone Irma, [facility] 1.2.840.114 [id number] Univers 00:00:00 00:00:00 Alma Estevez SUPERVISOR CIGAR PROCESSING 350.1.13.[address] [facility] 4.2.7.2.686 [place]wayne as MATERNAL [phone] Med ical & CHILD [address] [place] [address] 2022-01-13 2022-01-13 Outpatient R FARHAN [facility] [id number] Univers 11:00:00 15:39:45 RADHA ity [facility] 2022-01-13 2022-01-13 Routine Provider, Reddy-Rmchp Temp [facility] 1 .2.840.114 [id number] [facility] 11:00:00 11:15:00 Radha Nobles SUPERVISOR CIGAR PROCESSING 350.1.13. [address] [facility] 4.2.7.2.686 [place] as MATERNAL [id number] Med ical & CHILD [address] [place] [address] 2022-01-09 2022-01-09 Meteorology Professor Adri, Jenn Lab Main [facility] 1.2.8 40.114 [id number] Univers 15:00:00 15:15:00 Visit Neal Reed [facility] 4.[place] [phone] Ri dical [address] 2022-01-09 2022-01-09 Outpatient Bryn SINGH [facility] [id number] Univers 13:45:00 14:34:17 KEVIN ity [facility] 2022-01-09 2022-01-09 Routine Risk, Qpi-Zuvuu-Tz/High [facility] 1. 2.840.114 [id number] Univers 13:45:00 14:34:17 Alma Solis SUPERVISOR CIG[employer] PROCESSING 350.1.13 .10 ity of Visit Kevin Singh [facility] 4.2.7.2.686 [place] MATERNAL [phone] Med ical & CHILD [address] [place] [address] 2022-01-07 2022-01-07 Telephone Risk, [facility] 1.2.734.665 [id number] Univers 00:00:00 00:00:00 Ang-Rmchp-N SUPERVISOR CIG[employer] PROCESSING 350.1.13.10 ity of p/High REGIONAL 4.2.7.2.686 [place] as MATERNAL [phone] [facility] ical & CHILD [address] [place] [address] 2022-01-06 2022-01-06 Outpatient R CONSTANTINO [facility] [id number] Univers 15:30:00 16:45:47 ROLY it y of S, DE JESUS [facility] 2022-01-06 2022-01-06 Telemedici Faculty, Ang Rmchp [facility] 1.2.840.114 [id number] Univers 15:30:00 16:45:47 ne Visit Kam Neal Lowry SUPERVISOR CIG[employer] PROCESSING 350.1 .13.10 ity of REGIONAL 4.2.7.2.686 [place] as MATERNAL [phone] [facility] & CHILD [address] [place] [address] 2022-01-06 2022-01-06 Routine Akinsipe, Alma C [facility] 1.2.8 40.114 [id number] Univers 14:45:00 15:33:24 Katz Lusony R SUPERVISOR [employer]IG[employer] PROCESSING 350.1.13.1 0 ity of Visit REGIONAL 4.2.7.2.686 [place]way[place] as MATERNAL [id number] [facility] & CHILD [address] [place] [address] 2022-01-03 2022-01-03 Orders Doctor COLT 1.2.840.114 [id number] Univers 00:00:00 00:00:00 Only Unassigned, STEPHANIA 350.1.13.10 ity of [place] [facility] 4.2.7.2.686 Dwayne as [phone] [address] 2022-01-02 2022-01-02 Outpatient R ALFREDO [facility] [id number] Univers 13:30:00 15:00:16 KEVIN ity [facility] 2022-01-02 2022-01-02 Routine Risk, Ruu-Ycqfh-Fa/High [facility] 1. 2.840.114 [id number] Univers 13:30:00 15:00:16 Kevin Singh SUPERVISOR CIGAR PROCESSING 350.1.13.10 ity of Visit REGIONAL 4.2.7.2.686 [place] as MATERNAL [id number] [facility] & [address] 2022-01-02 2022-01-02 Telephone [facility] 1.2.840.114 [id number] Univers 00:00:00 00:00:00 Alma C SUPERVISOR CIGAR PROCESSING 350.1.13.10 ity of REGIONAL 4.2.7.2.686 [place] as MATERNAL [id number] [facility] & CHILD [address] [place] [address] 2021-12-30 2021-12-30 Routine [facility] 1.2.866.425 [id number] Univers 15:30:00 15:45:00 Alma C SUPERVISOR CIGAR PROCESSING 350.1.13.10 ity of Visit REGIONAL 4.2.7.2.686 [place] as MATERNAL [id number] [facility] & [address] 2021-12-30 2021-12-30 Outpatient R AKINSIPE, [facility] [id number] Univers 15:30:00 15:30:00 ALMA ity o [facility] 2021-12-17 2021-12-17 Outpatient R AKINSIPE, [facility] [id number] Univers 14:00:00 15:10:22 ALMA ity o f [facility] 2021-12-17 2021-12-17 Routine [facility] 1.2.268.596 [id number] Univers 14:00:00 15:10:22 Alma C SUPERVISOR CIGAR PROCESSING 350.1.13.10 ity of Visit REGIONAL 4.2.7.2.686 [place] as MATERNAL [phone] [facility] & [address] 2021-12-13 2021-12-13 Outpatient R AKINSIPE, [facility] [id number] Univers 09:15:00 09:15:00 ALMA ity o f [facility] 2021-12-10 2021-12-10 Telephone [facility] 1.2.840.114 [id number] Univers 00:00:00 00:00:00 Alma Estevez SUPERVISOR CIGAR PROCESSING 350.1.13.[address] [facility] 4.2.7.2.686 [place] as MATERNAL [id number] [facility] & CHILD [address] [place] [address] 2021-12-05 2021-12-05 Abstract Irma [facility] 1.2.840.114 [id number] Univers 00:00:00 00:00:00 Alma Estevez SUPERVISOR CIGAR PROCESSING 350.1.13.[address] [facility] 4.2.7.2.686 [place] as MATERNAL [id number] [facility] [address] [place] [address] 2021-12-01 2021-12-01 Outpatient Sharon FISH [facility] MARGOT [id number] Univers 14:52:00 18:22:00 LUKE ity [facility] 2021-12-01 2021-12-01 COLT Dobbs 1.2.374.756 [id number] Univers 14:52:00 18:22:00 Encounter Luke CAT 350.1.13.10 ity [place] [address].7.2.686 Dwayne as [phone] [facility] [address] 2021-11-30 2021-11-30 Emergency [facility] [id number] Univers 11:50:00 12:13:00 [facility] 2021-11-30 2021-11-30 Emergency [facility] 1.2.840.114 [id number] Univers 11:50:00 12:13:00 Areli GUTIERREZ 350.1.13.10 ity [facility] 4.2.7.2.686 [place] [facility] [phone] [facility] [address] 2021-11-30 2021-11-30 Letter COLT Wyman 1.2.840.114 [id number] Univers 00:00:00 00:00:00 (Out) Vijaya CAT 350.1.13.10 it y [facility] 4.2.7.2.686 Dwayne as [phone] [facility] [address] 2021-11-29 2021-11-29 Meteorology Professor Ultrasound, [facility] 1.2 .840.114 [id number] Univers 15:15:00 16:00:00 Visit Trever Katz R SUPERVISOR CIGAR PROCESSING 350.1.13.10 ity of Zen Garcia REGIONAL 4.2.7.2.686 [place] MATERNAL [phone] [facility] ical & CHILD [address] [facility] 2021-11-29 2021-11-29 Outpatient P [facility] [id number] Univers 15:15:00 15:15:00 ity of [facility] 2021-11-29 2021-11-29 Outpatient R GIANNA [facility] [id number] Univers 07:45:00 08:28:49 ROSBELINDANDA ityolie o [facility] 2021-11-29 2021-11-29 Routine [facility] 1.2.840.114 [id number] Univers 07:45:00 08:28:49 Trever R SUPERVISOR CIGAR PROCESSING 350.1.13.10 ity of Visit REGIONAL 4.2.7.2.686 [place] as MATERNAL [phone] [facility] & CHILD [address] [place] [address] 2021-11-28 2021-11-28 Outpatient R [facility] [id number] Univers 14:45:00 14:45:00 ALMA ity o f [facility] 2021-11-19 2021-11-19 Telephone [facility] 1.2.840.114 [id number] Univers 00:00:00 00:00:00 Alma C SUPERVISOR CIGAR PROCESSING 350.1.13.10 ity of REGIONAL 4.2.7.2.686 [place]way[place] as MATERNAL [phone] [facility] & CHILD [address] [place] [address] 2021-11-12 2021-11-12 Routine [facility] 1.2.856.984 [id number] Univers 14:45:00 15:00:00 Alma C SUPERVISOR CIGAR PROCESSING 350.1.13.10 ity of Visit REGIONAL 4.2.7.2.686 [place]way[place] as MATERNAL [phone] [facility] & CHILD [address] [place] [address] 2021-11-12 2021-11-12 Out[facility] [id number] Univers 14:45:00 14:45:00 ALMA pierce [facility] 2021-11-04 2021-11-04 Telemedici Faculty, Reddy [facility] 1.2.840.114 [id number] Univers 15:00:00 15:30:00 ne Visit Anton Renteria SUPERVISOR CIGAR PROCESSING 350.1.13.[address] [facility] 4.2.7.2.686 [place] as MATERNAL [phone] [facility] [address] [place] [address] 2021-11-04 2021-11-04 Outpatient P DEXTER [facility] [id number] Univers 15:00:00 15:00:00 ANTON pierce [facility] 2021-10-28 2021-10-28 Outpatient P [facility] [id number] Univers 15:00:00 15:00:00 ity [facility] 2021-10-22 2021-10-22 Abstract [facility] 1.2.840.114 [id number] Univers 00:00:00 00:00:00 Alma Estevez SUPERVISOR CIGAR PROCESSING 350.1.13.[address] 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 840.114 [id number] Univers 14:15:00 16:36:19 Visit Abena Patel SUPERVISOR CIGAR PROCESSING 350.1.13.[address] [facility] 4.2.7.2.686 [place]wayne as MATERNAL [phone] [facility] [address] [place] [address] 2021-10-17 2021-10-17 Outpatient P JORGE [facility] [id number] Univers 14:15:00 14:15:00 ABENA hammonds [facility] 2021-10-15 2021-10-15 Outpatient R IRMA [facility] [id number] Univers 13:00:00 13:45:11 ALMA pierce [facility] 2021-10-15 2021-10-15 Routine [facility] 1.2.480.558 [id number] Univers 13:00:00 13:45:11 Alma C SUPERVISOR CIGAR PROCESSING 350.1.13.10 ity of Visit REGIONAL 4.2.7.2.686 [place]wayne as MATERNAL [phone] [facility] [address] [place] [address] 2021-10-11 2021-10-11 Outpatient P [facility] [id number] Univers 14:15:00 14:15:00 ity of [facility] 2021-10-07 2021-10-07 Outpatient R AKINSIPE, [facility] [id number] Univers 12:45:00 13:37:44 ALMA ity o f [facility] 2021-10-07 2021-10-07 [facility]ine [facility] 1.2.022.954 [id number] Univers 12:45:00 13:37:44 Alma C SUPERVISOR CIGAR PROCESSING 350.1.13.10 ity of Visit REGIONAL 4.2.7.2.686 [place]wayne as MATERNAL [id number] [facility] [address] [place] [address] 2021-10-07 2021-10-07 Orders Doctor COLT 1.2.840.114 [id number] Univers 00:00:00 00:00:00 Only Unassigned, STEPHANIA 350.1.13.10 ity of [place] [facility] 4.2.7.2.686 Dwayne as [phone] [address] 2021-10-03 2021-10-03 Outpatient R AKINSIPE, [facility] [id number] Univers 16:00:00 16:00:00 ALMA ity o f [facility] 2021-09-19 2021-09-19 Orders Doctor COLT 1.2.840.114 [id number] Univers 00:00:00 00:00:00 Only Unassigned, STEPHANIA 350.1.13.10 ity of [place] [facility] 4.2.7.2.686 [place]wayne as [phone] [address] 2021-09-05 2021-09-05 [facility] [id number] Univers 15:30:00 16:02:29 ALMA ity o f [facility] 2021-09-05 2021-09-05 Routine Akinaure, [facility] 1.2.659.781 [id number] Univers 15:30:00 16:02:29 Alma Estevez SUPERVISOR CIGAR PROCESSING 350.1.13.[address] [facility] 4.2.7.2.686 [place]way[place] as MATERNAL [phone] Med ical & CHILD 107 [facility] 2021-09-02 2021-09-02 Orders Doctor COLT 1.2.840.114 [id number] Univers 00:00:00 00:00:00 Only Unassigned, STEPHANIA 350.1.13.10 ity of [place] [facility] 4.2.7.2.686 Dwayne as [phone] [address] 2021-08-19 2021-08-19 Outpatient R ALICIA [facility] [id number] Univers 15:00:00 15:00:00 LUKE hammonds [facility] 2021-08-19 2021-08-19 Meteorology Professor Lab, [facility] 1.2.840. 114 [id number] Univers 15:00:00 15:00:00 Visit Luke Fish SUPERVISOR CIGAR PROCESSING 350.1.13.10 ity of REGIONAL 4.2.7.2.686 [place] as MATERNAL [phone] [facility] ical & CHILD [facility] 2021-08-19 2021-08-19 Meteorology Professor 1, [facility] 1.2. 840.114 [id number] Univers 14:15:00 14:51:59 Visit Luke Fish SUPERVISOR CIGAR PROCESSING 350.1.13.10 ity of REGIONAL 4.2.7.2.686 [place] as MATERNAL [id number] [facility] 2021-08-19 2021-08-19 Outpatient P [facility] [id number] Univers 14:15:00 14:15:00 ity [facility] 2021-08-19 2021-08-19 Abstract [facility] 1.2.840.114 [id number] Univers 00:00:00 00:00:00 Alma C SUPERVISOR CIGAR PROCESSING 350.1.13.10 ity of REGIONAL 4.2.7.2.686 [place] as MATERNAL [id number] [address] 2021-08-08 2021-08-08 Outpatient R R [facility] [id number] Univers 15:30:00 16:15:10 ALMA ity o [facility] 2021-08-08 2021-08-08 Routine [facility] 1.2.052.838 [id number] Univers 15:30:00 16:15:10 Alma C SUPERVISOR CIGAR PROCESSING 350.1.13.[address] [facility] 4.2.7.2.686 [place] as MATERNAL [phone] [address] 2021-08-08 2021-08-08 Outpatient R R [facility] [id number] Univers 15:30:00 16:15:10 ALMA garciay o [facility] 2021-08-08 2021-08-08 Outpatient R R [facility] [id number] Univers 15:30:00 15:30:00 ALMA garciay o [facility] 2021-07-25 2021-07-25 Telephone [facility] 1.2.840.114 [id number] Univers 00:00:00 00:00:00 Alma C SUPERVISOR CIGAR PROCESSING 350.1.13.[address] [facility] 4.2.7.2.686 [place]wayne as MATERNAL [phone] [address] 2021-07-19 2021-07-19 Orders Doctor COLT 1.2.840.114 [id number] Univers 00:00:00 00:00:00 Only Unassigned, STEPHANIA 350.1.13.10 ity of [place] [facility] 4.2.7.2.686 Dwayne as [phone] [address] 2021-07-18 2021-07-18 [facility] [id number] Univers 13:15:00 13:52:24 AMY ity [facility] 2021-07-18 2021-07-18 Routine Risk, Rfh-Aaeqh-Ag/High [facility] 1. 2.840.114 [id number] Univers 13:15:00 13:52:24 SharmaAmy aldana SUPERVISOR CIGAR PROCESSING 350.1.13.10 ity of Visit REGIONAL 4.2.7.2.686 [place]wayne as MATERNAL [phone] [facility] ical & CHILD [address] [place] [address] 2021-07-11 2021-07-11 Outpatient R AKINLISSY, [facility] [id number] Univers 15:00:00 16:21:03 ALMA hammonds o [facility] 2021-07-11 2021-07-11 Initial [facility] 1.2.717.166 [id number] Univers 15:00:00 16:21:03 Alma Estevez SUPERVISOR CIGAR PROCESSING 350.1.13.[address] [facility] 4.2.7.2.686 Dwayne as MATERNAL [phone] [facility] & [address] 2021-07-11 2021-07-11 Outpatient R AKINLISSY, [facility] [id number] Univers 15:00:00 16:21:03 ALMA hammonds o [facility] 2021-07-11 2021-07-11 Orders Doctor GREGORY 1.2.840.114 [id number] Univers 00:00:00 00:00:00 Only Unassigned, STEPHANIA 350.1.13.10 ity of [place] [facility] 4.2.7.2.686 Dwayne as [phone] [facility] [address] 2021-05-14 2021-05-14 Outpatient RICHARD DYKES [facility] [id number] Univers 10:40:00 10:40:00 RICHARD ANDERSON [facility] 2021-04-27 2021-04-27 Letter COLT Wyman 1.2.840.114 [id number] Univers 00:00:00 00:00:00 (Out) Vijaya CAT 350.1.13.10 it y of HOSPITAL 4.2.7.2.686 [place] as [phone] [facility] [address] 2021-04-26 2021-04-26 Emergency X UGO [facility] ERT [id number] Univers 17:29:00 19:21:00 KIARRA hammonds [facility] 2021-04-26 2021-04-26 Emergency Arizmendi, [facility] 1.2.840.114 [id number] Univers 17:29:00 19:21:00 Kiarra GUTIERREZ 350.1.13.10 i ty of [place] 4.2.7.2.686 [facility] [phone] [address] 2021-04-25 2021-04-25 Outpatient R [facility] [id number] Univers 09:45:00 09:54:55 ANGELO radhayolie [facility] 2021-04-25 2021-04-25 Office Anne [facility] 1.2.380.397 [id number] Univers 09:45:00 09:54:55 Visit [facility] 350.1.13.10 it y of [place] 4.2.7.2.686 Dwayne as JORGE?BLEA [id number] [address] MEDICAL OFFICE BUILDING 2021-04-18 2021-04-18 Emergency X [facility] ERT [id number] Univers 12:29:00 15:20:00 BERTHA hammonds [facility] 2021-04-18 2021-04-18 Emergency [facility] 1.2.579.739 [id number] Univers 12:29:00 15:20:00 Bertha SIMSKARLENE 350.1.13.10 i ty of [place] 4.2.7.2.686 [facility] [phone] [address] 2021-04-18 2021-04-18 Orders Doctor COLT 1.2.840.114 [id number] Univers 00:00:00 00:00:00 Only Unassigned, STEPHANIA 350.1.13.10 ity of [place] [facility] 4.2.7.2.686 Dwayne as [phone] [facility] [address] 2021-04-05 2021-04-05 Telephone [facility] 1.2.840.114 [id number] Univers 00:00:00 00:00:00 Alma Estevez SUPERVISOR CIGAR PROCESSING 350.1.13.[address] [facility] 4.2.7.2.686 Dwayne as MATERNAL [phone] Med ical & CHILD 107 [facility] 2021-03-22 2021-03-22 Refill Justin [facility] 1.2.840.114 [id number] Univers 00:00:00 00:00:00 [facility] 350.1.13.10 ity of [place] 4.2.7.2.686 [place]wayne as JORGE?BLEA [id number] [address] OFFICE [facility] 2021-03-12 2021-03-12 Office [facility] 1.2.840.114 [id number] Univers 16:00:00 16:44:59 Visit [facility] 350.1.13.10 ity of [place] 4.2.7.2.686 Dwayne as JORGE?BLEA [id number] [address] 2021-03-12 2021-03-12 Outpatient Bryn URIARTEERICHARD [facility] [id number] Univers 16:00:00 16:44:59 JUSTINRICHARD Kaur [facility] 2021-03-12 2021-03-12 Outpatient RICHARD DYKES [facility] [id number] Univers 16:00:00 16:00:00 JUSTIN, RICHARD [facility] 2021-02-26 2021-02-26 [facility] [id number] Univers 00:00:00 00:00:00 [facility] [id number] ity of [place] [id number] Dwayne as JORGE?BLEA [phone] [address] 2021-02-17 2021-02-17 Emergency X SALAS [facility] ERT [id number] Univers 18:01:00 22:48:00 ARMEN [facility] 2021-02-17 2021-02-17 Emergency Raven Goldsmith [facility] 1.2.840. 114 [id number] Univers 18:01:00 22:48:00 Armen Rodriguez [place] [id number] ity [facility] [id number] [id number] [address] 2021-01-11 2021-01-11 Meteorology Professor Lab, [facility] 1.2.840. 114 [id number] Univers 10:24:34 10:39:34 Visit Abena Patel [employer] [id number] ity [facility] [id number] Dwayne as MATERNAL [id number] Med ical & CHILD 107 [facility] 2021-01-11 2021-01-11 Outpatient Bryn PATEL [facility] [id number] Univers 10:30:00 10:30:00 ABENA hammonds [facility] 2020-12-21 2020-12-21 Telephone Justin [facility] 1.2.840.114 [id number] Univers 00:00:00 00:00:00 [facility] 350.1.13.10 [facility] 4.2.7.2.686 [place] as Jorge?Blea [phone] [address] Office [facility] 2020-12-18 2020-12-18 Outpatient Bryn PATEL [facility] [id number] Univers 09:00:00 09:00:00 ABENA hammonds [facility] 2020-11-26 2020-11-26 Office Justin [facility] 1.2.840.114 [id number] Univers 07:48:27 09:58:10 Visit [facility] 350.1.13.10 [facility] 4.2.7.2.686 [place] Jorge?Blea [phone] [address] Office [facility] 2020-11-26 2020-11-26 Outpatient RICHARD DYKES [facility] [id number] Univers 08:00:00 08:00:00 RICHARD ANDERSON [facility] 2020-11-26 2020-11-26 Letter Justin [facility] 1.2.840.114 [id number] Univers 00:00:00 00:00:00 (Out) Richard [facility] 350.1.13.[address] [facility] 4.2.7.2.686 [place]wayne as Jorge?Blea [phone] [address] Office Building 2020-11-20 2020-11-20 Outpatient RICHARD DYKES [facility] [id number] Univers 08:00:00 08:00:00 RICHARD ANDERSON yolie [facility] 2020-11-14 2020-11-14 Telephone Justin [facility] 1.2.840.114 [id number] Univers 00:00:00 00:00:00 [facility] 350.1.13.10 ity [facility] [place] [phone] [address] 2020-11-01 2020-11-01 Outpatient Bryn SALINAS [facility] [id number] Univers 14:00:00 14:35:39 [facility] 2020-11-01 2020-11-01 Office [facility] 1.2.840.114 [id number] Univers 13:43:12 14:35:39 Visit Liliana Evelin SPECIALTY 350.1.13.10 it[place] of [place] AT [phone] Ri maria victoriaazalia [address] 2020-11-01 2020-11-01 Office [facility] 1.2.840.114 [id number] Univers 13:43:12 14:35:39 Visit Liliana Evelin SPECIALTY 350.1.13.10 it[place] [phone] Ri maria victoriaazalia BEDOYA 204 [facility] 2020-11-01 2020-11-01 Outpatient Bryn SALINSA [facility] [id number] Univers 14:00:00 14:00:00 LILIANA hammonds [facility] 2020-10-19 2020-10-19 Outpatient RICHARD DYKES [facility] [id number] Univers 08:40:00 08:40:00 RICHARD ANDERSON [facility] 2020-10-18 2020-10-18 [facility] Desiree [facility] 1.2.840.114 [id number] Univers 12:54:28 23:59:00 Encounter Lauryn Anita 350.1.13.10 ity [facility] 4.2.7.2.686 [facility] [phone] [address] 2020-10-18 2020-10-18 Outpatient R DESIREE [facility] [id number] Univers 00:00:00 00:00:00 LAURYN hammonds o f [facility] 2020-10-15 2020-10-15 Telephone [facility] 1.2.840.114 [id number] Univers 00:00:00 00:00:00 Abena N SUPERVISOR [employer]ESSING 350.1.13.[address] [facility] 4.2.7.2.686 Dwayne as MATERNAL [phone] Med ical & CHILD [address] [place] [address] 2020-10-15 2020-10-15 Telephone [facility] 1.2.840.114 [id number] 00:00:00 00:00:00 Abena Camarillo SUPER[employer] 350.1.13.10 REGIONAL 4.2.7.2.686 MATERNAL [phone] & CHILD [address] [place] [address] 2020-10-12 2020-10-12 Telephone [facility] 1.2.840.114 [id number] Univers 00:00:00 00:00:00 Abena Camarillo SUPERVISOR [employer] PROCESSING 350.1.13.[address] [facility] 4.2.7.2.686 Dwayne as MATERNAL [phone] Med ical & CHILD [address] [place] [address] 2020-10-12 2020-10-12 Telephone [facility] 1.2.840.114 [id number] 00:00:00 00:00:00 Abena N SUPERVIS[employer] 350.1.13.10 REGIONAL 4.2.7.2.686 MATERNAL [phone] & CHILD [address] [place] [address] 2020-10-11 2020-10-11 Outpatient R JORGE [facility] [id number] Univers 15:15:00 15:15:00 ABENA hammonds [facility] 2020-10-11 2020-10-11 Telephone [facility] 1.2.840.114 [id number] Univers 00:00:00 00:00:00 Abena Rabia SUPERVISOR [employer]IG[employer] PROCESSING 350.1.13.[address] [facility] 4.2.7.2.686 Dwayne as MATERNAL [phone] [facility] & CHILD [address] [place] [address] 2020-10-11 2020-10-11 Telephone [facility] 1.2.840.114 [id number] 00:00:00 00:00:00 Abena Rabia SUPERVISOR [employer] 350.1.13.10 [facility] 4.2.7.2.686 MATERNAL [phone] & CHILD [address] [place] [address] 2020-10-09 2020-10-09 Office [facility] 1.2.017.756 [id number] Univers 15:44:08 16:29:53 Visit Abena Camarillo SUPERVIS[employer]ESSING 350.1.13.[address] [facility] 4.2.7.2.686 Dwayne as MATERNAL [phone] [facility] & CHILD [address] [place] [address] 2020-10-09 2020-10-09 Office [facility] 1.2.658.104 [id number] 15:44:08 16:29:53 Visit Abena Rabia SUPER[employer] 350.1.13.10 [facility] 4.2.7.2.686 MATERNAL [phone] & CHILD [address] [place] [address] 2020-10-09 2020-10-09 [facility] [id number] Univers 15:45:00 15:45:00 ABENA hammonds of [facility] 2020-10-09 2020-10-09 Orders Doctor COLT 1.2.840.114 [id number] Univers 00:00:00 00:00:00 Only Unassigned, STEPHANIA 350.1.13.10 ity of [place] [facility] 4.2.7.2.686 [place]wayne as [phone] [address] 2020-10-08 2020-10-08 Transition Julio Grant 1.2.840.114 [id number] Univers 00:00:00 00:00:00 of Care Mesfin A Guerrero 350.1.13.10 ity of [place].2.7.2.[place] [phone] [facility] [address] 2020-10-01 2020-10-05 Hospital Mary Rios 1.2.840.114 [id number] Univers 09:39:00 10:22:00 Encounter S [place] 350.1.13.10 ity of Hospital 4.2.7.2.686 [place]ne as [phone] [facility] [address] 2020-10-01 2020-10-01 Outpatient R KEVINMARY [facility] [id number] Univers 08:30:00 08:30:00 ity of [facility] 2020-10-01 2020-10-01 Orders Doctor GREGORY 1.2.840.114 [id number] Univers 00:00:00 00:00:00 Only Unassigned, STEPHANIA 350.1.13.10 ity of [place] [facility] 4.2.7.2.686 Dwayne as [phone] [facility] [address] 2020-09-30 2020-09-30 Orders Doctor GREGORY 1.2.840.114 [id number] Univers 00:00:00 00:00:00 Only Unassigned, STEPHANIA 350.1.13.10 ity of [place] [facility]OSPITAL 4.2.7.2.686 Dwayne as [phone] [facility] [address] 2020-09-28 2020-09-28 Outpatient R JORGE [facility] [id number] Univers 09:30:00 09:30:00 ABENA ityolie [facility] 2020-09-26 2020-09-26 Laboratory Only, Adc Test [facility] 1.2.840. 114 [id number] Univers 12:05:49 12:20:49 Only Mary Rios Piyush Anita 350.1.13.10 ity of [place].7.2.686 [place] [phone] [facility] [address] 2020-09-26 2020-09-26 Outpatient R [facility] [id number] Univers 12:00:00 12:00:00 ity [facility] 2020-09-26 2020-09-26 Orders Doctor GREGORY 1.2.840.114 [id number] Univers 00:00:00 00:00:00 Only Unassigned, STEPHANIA 350.1.13.10 ity of [place] [facility] 4.2.7.2.686 Dwayne as [phone] [facility] [address] 2020-09-21 2020-09-21 Outpatient R JSUTINRICHARD [facility] [id number] Univers 10:00:00 10:00:00 JUSTINRICHARD ity of [facility] 2020-09-14 2020-09-15 Emergency Glenis, TRAUMA 1.2.917.410 [id number] Univers 21:58:00 00:49:00 Cheo MOORE 350.1.13.10 it[place] [phone] [facility] [address] 2020-09-12 2020-09-13 Emergency [place] [facility] 1.2.840.114 [id number] Univers 19:41:00 00:37:00 Yulia Gutierrez 350.1.13.10 i ty of [place]2.7.2.686 [place] [phone] [facility] [address] 2020-09-12 2020-09-12 Telephone Justin [facility] 1.2.840.114 [id number] Univers 00:00:00 00:00:00 Richard Gutierrez 350.1.13.10 ity of [place].2.7.2.[place] [phone] [facility] [address] [facility] 2020-09-11 2020-09-11 Emergency [facility] 1.2.168.591 [id number] Univers 20:23:00 22:08:00 Wong Gutierrez 350.1.13.10 i ty of [place] 4.2.7.2.686 [place] [phone] [facility] [address] 2020-08-31 2020-08-31 Emergency [place] [facility] 1.2.840.114 [id number] Univers 11:19:00 13:58:00 Yulia Gutierrez 350.1.13.10 i ty of [place] 4.2.7.2.686 [facility] [phone] [facility] [address] 2020-08-29 2020-08-29 Emergency Kwaku [place] [facility] 1.2.840.114 [id number] Univers 20:48:00 23:11:00 Yulia Anita 350.1.13.10 i ty of [place] 4.2.7.2.686 [facility] [phone] [facility] [address] 2020-06-07 2020-06-07 Office Irma [facility] 1.2.508.889 [id number] Univers 10:50:31 11:18:03 Visit Alma Estevez SUPERVISOR [employer]ESSING 350.1.13.[address] [facility] 4.2.7.2.686 Dwayne as MATERNAL [phone] Med ical & CHILD [address] [place] [address] 2020-06-07 2020-06-07 Outpatient R IRMA [facility] [id number] Univers 11:00:00 11:00:00 ALMA pierce [facility] 2020-05-29 2020-05-29 Patient [facility] 1.2.840.114 [id number] Univers 00:00:00 00:00:00 Outreach Santosh [facility] 350.1.13.10 i ty of [facility] 4.2.7.2.686 [facility] [phone] Ri dical [address] 2020-05-13 2020-05-13 Emergency [place] [facility] 1.2.840.114 [id number] Univers 19:12:00 21:45:00 [facility] 350.1.13.10 i ty of [place] 4.2.7.2.686 [facility] [phone] [facility] [address] 2020-05-13 2020-05-13 Orders Doctor COLT 1.2.840.114 [id number] Univers 00:00:00 00:00:00 Only Unassigned, STEPHANIA 350.1.13.10 ity of [place] [facility] 4.2.7.2.686 Dwayne as [phone] [facility] [address] 2020-01-19 2020-01-19 Telephone Visit, [facility] 1.2.525.017 [id number] Univers 00:00:00 00:00:00 [facility] SUPERVISOR CIG[employer] PROCESSING 350.1.13.10 ity of Nurse REGIONAL 4.2.7.2.686 Dwayne as MATERNAL [id number] [facility] ical & CHILD [address] [place] [address] 2020-01-17 2020-01-17 Office [facility] 1.2.840.114 [id number] Univers 13:39:45 14:25:08 Visit Trever Clemente SUPERVISOR [employer]IG[employer] PROCESSING 350.1.13.10 ity of REGIONAL 4.2.7.2.686 Dwayne as MATERNAL [phone] [facility] & CHILD [address] [place] [address] 2020-01-17 2020-01-17 Outpatient R [facility] [id number] Univers 13:45:00 13:45:00 TREVER ity o f [facility] 2020-01-16 2020-01-16 Telephone [facility] 1.2.427.087 [id number] Univers 00:00:00 00:00:00 Brittanisony R SUPERVISOR [employer] PROCESSING 350.1.13.[address] [facility] 4.2.7.2.686 Dwayne as MATERNAL [phone] [facility] & [address] 2019-12-30 2019-12-30 Nurse Visit, [facility] Nurse [facility] 1.2 .840.114 [id number] Univers 10:22:21 10:37:21 Visit Abena Patel SUPERVISOR CIG[employer] PROCESSING 350.1.13.[address] [facility] 4.2.7.2.686 Dwayne as MATERNAL [phone] [facility] ical & CHILD [address] [place] [address] 2019-12-30 2019-12-30 Outpatient R [facility] [id number] Univers 10:30:00 10:30:00 ity of [facility] 2019-12-21 2019-12-21 Telephone [facility] 1.2.197.468 [id number] Univers 00:00:00 00:00:00 Luakankshaa R SUPERVISOR [employer]ESSING 350.1.13.[address] [facility] 4.2.7.2.686 Dwayne as MATERNAL [phone] [facility] ical & CHILD [address] [place] [address] 2019-12-20 2019-12-20 Office [facility] 1.2.840.114 [id number] Univers 13:03:11 13:55:34 Visit Trever Bryn SUPERVISOR [employer]IG[employer] PROCESSING 350.1.13.10 ity of REGIONAL 4.2.7.2.686 Dwayne as MATERNAL [phone] [facility] CHILD [address] [place] [address] 2019-12-20 2019-12-20 Outpatient [facility] [id number] Univers 12:45:00 12:45:00 TREVER ity o f [facility] 2019-10-24 2019-10-24 Telephone [facility] 1.2.840.114 [id number] Univers 00:00:00 00:00:00 Abena Camarillo SUPERVISOR CIGAR PROCESSING 350.1.13.10 it y of REGIONAL 4.2.7.2.686 Dwayne as MATERNAL [phone] [facility] & CHILD [address] [place] [address] 2019-10-17 2019-10-17 Outpatient R [facility] [id number] Univers 15:00:00 15:00:00 ity [facility] 2019-09-28 2019-09-28 Telephone [facility] 1.2.840.114 [id number] Univers 00:00:00 00:00:00 Abena Camarillo SUPERVISOR CIG[employer] PROCESSING 350.1.13.10 it y of REGIONAL 4.2.7.2.686 Dwayne as MATERNAL [phone] [facility] & CHILD [address] [place] [address] 2019-09-27 2019-09-27 Office [facility] 1.2.443.609 [id number] Univers 14:03:06 14:59:44 Visit Abena Camarillo SUPERVISOR CIG[employer] PROCESSING 350.1.13.10 it y of REGIONAL 4.2.7.2.686 Dwayne as MATERNAL [phone] [facility] & CHILD [address] [place] [address] 2019-09-27 2019-09-27 Outpatient [facility] [id number] Univers 14:00:00 14:00:00 ABENA ityolie [facility] 2019-08-26 2019-08-26 Meteorology Professor Lab, Ang-Rmchp [facility] 1.2.840. 114 [id number] Univers 12:52:43 13:06:01 Visit Alma Solis SUPERVISOR CIG[employer] PROCESSING 350.1.13. 10 ity of [place] [address]..2.686 Dwayne as MATERNAL [phone] Med ical & CHILD [address] [place] [address] 2019-08-26 2019-08-26 Outpatient [facility] [id number] Univers 13:00:00 13:00:00 ALMA ity o f [facility] 2019-08-19 2019-08-19 Outpatient R [facility] [id number] Univers 13:00:00 13:00:00 ity [facility] 2019-08-18 2019-08-18 Outpatient R [facility] [id number] Univers 13:00:00 13:00:00 ity [facility] 2019-08-18 2019-08-18 Emergency X AGUS [facility] ERT [id number] Univers 08:24:15 11:52:00 RAVEN hammonds [facility] 2019-08-18 2019-08-18 Emergency [facility] 1.2.536.062 [id number] Univers 08:24:15 11:52:00 [facility] 350.1.13.10 i ty [place] [address].2.686 [facility] [phone] [facility] [address] 2019-08-18 2019-08-18 Orders Doctor GREGORY 1.2.840.114 [id number] Univers 00:00:00 00:00:00 Only UnassignedSTEPHANIA 350.1.13.10 ity of [place] [address].7.2.686 Dwayne as [id number] [facility] [address] 2019-07-31 2019-07-31 Telephone COLT Miramontes 1.2.528.701 [id number] Univers 00:00:00 00:00:00 Kevin CAT 350.1.13.10 i ty of [place] [address].7.2.686 Dwayne as [phone] [facility] [address] 2019-07-28 2019-07-29 Emergency X NICK [facility] ERT [id number] Univers 18:06:33 00:02:00 TISH ity [facility] 2019-07-28 2019-07-29 Emergency Nick, [facility] 1.2.840.114 [id number] Univers 18:06:33 00:02:00 Tish Anita 350.1.13.10 i ty of [place].2.[place] [phone] [address] 2019-07-18 2019-07-18 Telemedici [facility] 1.2.840.114 [id number] Univers 12:55:14 14:20:25 ne Visit Alma Estevez SUPERVISOR CIG[employer] PROCESSING 350.1.13.10 ity of REGIONAL 4.2.7.2.686 Dwayne as MATERNAL [id number] Med ical & CHILD [address] [place] [address] 2019-07-18 2019-07-18 Outpatient [facility] [id number] Univers 14:00:00 14:00:00 ALMA hammonds o f [facility] 2019-06-27 2019-06-27 Outpatient R [facility] [id number] Univers 15:30:00 15:30:00 ity of [facility] 2019-06-26 2019-06-26 Emergency X URBINA, [facility] ERT [id number] Univers 19:06:29 21:03:00 LORY ity [facility] 2019-06-26 2019-06-26 Emergency [place], [facility] 1.2.840.114 [id number] Univers 19:06:29 21:03:00 [facility] 350.1.13.10 ity of [place] 4.2.7.2.686 [facility] [phone] [address] ([facility] 2019-06-26 2019-06-26 Telephone [facility], [facility] 1.2.840.114 [id number] Univers 00:00:00 00:00:00 Alma Estevez SUPERVISOR CIG[employer] PROCESSING 350.1.13.10 ity of REGIONAL 4.2.7.2.686 Dwayne as MATERNAL [id number] Med ical & CHILD [address] [place] [address] 2019-06-24 2019-06-24 Outpatient R [facility] [id number] Univers 09:30:00 09:30:00 ity of [facility] 2019-06-23 2019-06-23 Telemedici Irma, [facility] 1.2.840.114 [id number] Univers 12:57:38 15:49:57 ne Visit Alma Estevez SUPERVISOR CIG[employer] PROCESSING 350.1.13.[address] [facility] 4.2.7.2.686 Dwayne as MATERNAL [phone] [facility] & [address] 2019-06-23 2019-06-23 Outpatient R IRMA [facility] [id number] Univers 15:30:00 15:30:00 ALMA pierce [facility] 2019-06-22 2019-06-22 Outpatient R JORGE [facility] [id number] Univers 13:30:00 13:30:00 ABENA [facility] 2019-06-22 2019-06-22 Telephone Visit, [facility] 1.2.529.188 [id number] Univers 00:00:00 00:00:00 [facility] SUPERVISOR CIGAR PROCESSING 350.1.13.[address] 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 114 [id number] Univers 13:00:32 13:15:32 Visit Alma Solis SUPERVISOR CIGAR PROCESSING 350.1.13. [address] [facility] 4.2.7.2.686 Dwayne as MATERNAL [id number] [address] 2019-06-21 2019-06-21 Outpatient R IRMA [facility] [id number] Univers 10:30:00 10:30:00 ALMA pierce [facility] 2019-06-21 2019-06-21 Telephone [facility] 1.2.840.114 [id number] Univers 00:00:00 00:00:00 Abena N SUPERVISOR CIGAR PROCESSING 350.1.13.10 it y of REGIONAL 4.2.7.2.686 Dwayne as MATERNAL [phone] Med ical & CHILD 107 [facility] 2019-06-20 2019-06-20 Telephone [facility] 1.2.840.114 [id number] Univers 00:00:00 00:00:00 Abena N SUPERVISOR CIGAR PROCESSING 350.1.13.10 it y of REGIONAL 4.2.7.2.686 Dwayne as MATERNAL [phone] Med ical & CHILD 107 [facility] 2019-06-10 2019-06-10 Telephone [facility] 1.2.840.114 [id number] Univers 00:00:00 00:00:00 Abena N SUPERVISOR CIGAR PROCESSING 350.1.13.10 it y of REGIONAL 4.2.7.2.686 Dwayne as MATERNAL [id number] Med ical & CHILD 107 [facility] 2019-05-20 2019-05-20 [facility] 1.2.840.114 [id number] Univers 00:00:00 00:00:00 Abena N SUPERVISOR CIGAR PROCESSING 350.1.13.10 it y of REGIONAL 4.2.7.2.686 Dwayne as MATERNAL [phone] Med ical & CHILD 107 [facility] 2019-05-19 2019-05-19 Telephone [facility] 1.2.840.114 [id number] Univers 00:00:00 00:00:00 Abena N SUPERVISOR CIGAR PROCESSING 350.1.13.10 it y of REGIONAL 4.2.7.2.686 Dwayne as MATERNAL [phone] Med ical & CHILD 107 [facility] 2019-05-17 2019-05-17 Office [facility] 1.2.398.508 [id number] Univers 13:24:09 13:50:08 Visit Abena N SUPERVISOR CIG[employer] PROCESSING 350.1.13.10 it y of REGION[place] 4.2.7.2.686 Dwayne as MATERNAL [id number] Med ical & CHILD 107 [facility] 2019-05-17 2019-05-17 Outpatient R JORGE [facility] [id number] Univers 13:30:00 13:30:00 ABENA hammonds of [facility] 2019-05-06 2019-05-06 Outpatient R GIANNA [facility] [id number] Univers 08:15:00 08:15:00 TREVER hammonds o f [facility] 2019-04-20 2019-04-20 Emergency Kwaku, Peace [facility] 1.2.840.114 [id number] Univers 11:02:10 14:18:00 Yulia Anita 350.1.13.10 i ty [facility] 4.2.7.2.686 [place] [facility] [id number] [address] 2019-03-29 2019-03-29 Telephone Gianna [facility] [id number] Univers 00:00:00 00:00:00 Trever R [employer] [id number] [facility] [id number] Dwayne as MATERNAL [phone] [facility] ical & CHILD [address] [place] [address] 2019-03-22 2019-03-22 [facility]phone [facility] [id number] Univers 00:00:00 00:00:00 Trever R [employer] [id number] [facility] [id number] Dwayne as MATERNAL [phone] [address] 2019-03-21 2019-03-21 Office [facility] [id number] Univers 15:39:38 16:25:05 Visit Trever Clemente [employer] [id number] [facility] [id number] Dwayne as MATERNAL [phone] [facility] & [address] Results Test Description Test Time Test Comments Results Result Comments Source POCT URINALYSIS W SPECIFIC GRAVITY 2022-01-21 16:34:00 Test Item Value Reference Range Interpretation Comme nts POCT U SP GRAV (test code = 3255) . 1.005-1.025 POCT PH U (test code = 3254) 7 mg/dl 5-8 POCT U LEUK EST (test code = 3263) - Negative - Negative POCT U NIT (test code = 3262) - Negative - Negative POCT U PROT (test code = 3259) 1+ Negative - Negative POCT U GLU (test code = 3256) - Negative - Negative POCT U KETONE (test code = 3258) - Negative - Negative POCT U UROBILI (test code = 3260) - 0.2-1 POCT U BILI (test code = 3261) - Negative - Negative POCT U BLD (test code = 3257) - Negative - Negative POCT U COLOR (test code = 3266) yellow POCT U APPEAR (test code = 3267) clear [facility] URINALYSIS W SPECIFIC [id number] 17:00:00 Test Item Value Reference Range Interpretation Comments POCT U SP GRAV (test code = . 1.005-1.025 3255) POCT PH U (test code = 3254) 8 mg/dl 5-8 POCT U LEUK EST (test code = 2+ Negative - Negative 3263) POCT U NIT (test code = 3262) negative Negative - Negative POCT U PROT (test code = 3259) 1+ Negative - Negative POCT U GLU (test code = 3256) negative Negative - Negative POCT U KETONE (test code = 3258) negative Negative - Negative POCT U UROBILI (test code = . 0.2-1 3260) POCT U BILI (test code = 3261) . Negative - Negative POCT U BLD (test code = 3257) negative Negative - Negative POCT U COLOR (test code = 3266) yellow POCT U APPEAR (test code = 3267) cloudy [facility] URINALYSIS W SPECIFIC [id number] 18:51:00 Test Item Value Reference Range Interpretation Comments POCT U SP GRAV (test code = * 1.005-1.025 A 3255) POCT PH U (test code = 3254) 7 mg/dl 5-8 POCT U LEUK EST (test code = 3+ Negative - Negative 3263) POCT U NIT (test code = 3262) negative Negative - Negative POCT U PROT (test code = 3259) negative Negative - Negative POCT U GLU (test code = 3256) negative Negative - Negative POCT U KETONE (test code = 3258) negative Negative - Negative POCT U UROBILI (test code = * 0.2-1 3260) POCT U BILI (test code = 3261) * Negative - Negative POCT U BLD (test code = 3257) negative Negative - Negative POCT U COLOR (test code = 3266) POCT U APPEAR (test code = 3267) Lab Interpretation (test code = Abnormal 69904-1) [facility] URINALYSIS W SPECIFIC [id number] 19:16:00 Test Item Value Reference Range Interpretation Comments [...] POCT U COLOR (test code = 3266) POCT U APPEAR (test code = 3267) [facility] URINALYSIS W SPECIFIC [id number] 18:26:00 Test Item Value Reference Range Interpretation Comments POCT U SP GRAV (test code = . 1.005-1.025 3255) POCT PH U (test code = 3254) 7 mg/dl 5-8 POCT U LEUK EST (test code = negative Negative - Negative 3263) POCT U NIT (test code = 3262) negative Negative - Negative POCT U PROT (test code = 3259) trace Negative - Negative POCT U GLU (test code = 3256) negative Negative - Negative POCT U KETONE (test code = 3258) negative Negative - Negative POCT U UROBILI (test code = . 0.2-1 3260) POCT U BILI (test code = 3261) . Negative - Negative POCT U BLD (test code = 3257) negative Negative - Negative POCT U COLOR (test code = 3266) yellow POCT U APPEAR (test code = 3267) clear Lab Interpretation (test code = Normal 25819-7) [facility] URINALYSIS W SPECIFIC [id number] 20:47:00 Test Item Value Reference Range Interpretation Comments [...] POCT U APPEAR (test code = 3267) [facility] URINALYSIS W SPECIFIC [id number] 19:47:00 Test Item Value Reference Range Interpretation Comments [...] POCT U APPEAR (test code = 3267) [facility] URINALYSIS W SPECIFIC [id number] 19:47:00 Test Item Value Reference Range Interpretation Comments [...] POCT U APPEAR (test code = 3267) [facility] URINALYSIS W SPECIFIC [id number] 13:14:00 Test Item Value Reference Range Interpretation [...] U APPEAR (test code = 3267) . [facility] URINALYSIS W SPECIFIC [id number] 13:14:00 Test Item Value Reference Range Interpretation [...] U APPEAR (test code = 3267) . [facility] URINALYSIS W SPECIFIC [id number] 13:14:00 Test Item Value Reference Range Interpretation Comments POCT U SP GRAV (test code = . 1.005-1.025 3255) POCT PH U (test code = 3254) . 5-8 POCT U LEUK EST (test code = . Negative - Negative 3) POCT U NIT (test code = 3262) [...] U APPEAR (test code = 3267) . [facility] URINALYSIS W SPECIFIC [id number] 13:14:00 Test Item Value Reference Range Interpretation Comments POCT U SP GRAV (test code = . 1.005-1.025 3255) POCT PH U (test code = 3254) . 5-8 POCT U LEUK EST (test code = . Negative - Negative 3) POCT U NIT (test code = 3262) [...] U APPEAR (test code = 3267) . [facility] URINALYSIS W SPECIFIC [id number] 13:14:00 Test Item Value Reference Range Interpretation [...] U APPEAR (test code = 3267) . [facility] URINALYSIS W SPECIFIC [id number] 13:14:00 Test Item Value Reference Range Interpretation [...] U APPEAR (test code = 3267) . [facility] URINALYSIS W SPECIFIC [id number] 13:14:00 Test Item Value Reference Range Interpretation [...] U APPEAR (test code = 3267) . [facility] URINALYSIS W SPECIFIC [id number] 13:14:00 Test Item Value Reference Range Interpretation [...] U APPEAR (test code = 3267) . [facility] URINALYSIS W SPECIFIC [id number] 13:14:00 Test Item Value Reference Range Interpretation [...] U APPEAR (test code = 3267) . [facility] [id number] 18:22:00 Test Item Value Reference Range Interpretation Comments LITHIUM LEVEL (BEAKER) 0.8 mmol/L 0.8-1.2 (test code = 630) SCAN RESULT (test code = See Scanned Report [id number]) [place], [id number] 14:13:01Reason for exam:->abnormal imaging [facility] 1995 Sex: FFluoroscopic unit utilized for a procedure performed in the OR. No interpretation was requested. Refer tothe operative report for findings. Refer to PACS for patient radiation dose information.COMPREHENSIVE METABOLIC [id number] 06:43:00 Test Item Value Reference Range Interpretation [...] S NOT APPLICABLE FOR DIALYSIS PATIEN TS. Outreach Counselor ID - MADISON [facility]BC (HEMOGRAM ONLY)2020-09-24 06:04:00 [...] (BEAKER) (test code = 413) COMPREHENSIVE METABOLIC [id number] 07:06:00 Test Item Value Reference Range Interpretation [...] S NOT APPLICABLE FOR DIALYSIS PATIEN TS. Outreach Counselor ID - PIAYA LCBC (HEMOGRAM ONLY)2020-09-23 06:47:00 [...] (BEAKER) (test code = 413) COMPREHENSIVE METABOLIC [id number] 08:27:00 Test Item Value Reference Range Interpretation [...] S NOT APPLICABLE FOR DIALYSIS PATIEN TS. Outreach Counselor ID - MADISON [id number] 08:27:00 Test Item Value Reference Range Interpretation Comments MAGNESIUM (BEAKER) (test code = 2.4 mg/dL 1.6-2.6 627) Outreach Counselor ID - MADISON MPROTHROMBIN [id number] 07:59:00 Test Item Value Reference Range Interpretation Comments PROTIME (BEAKER) 13.0 seconds 11.9-14.2 (test code = 759) INR (BEAKER) (test 1.00 See_Comment [Automat ed message] code = 370) The system [employer] generated this result transmitted ref erence range: <=5.90. The reference range was not used to int erpret this result as normal/abnormal . RECOMMENDED COUMADIN/WARFARIN INR THERAPY RANGESSTANDARD DOSE: 2.0 - 3.0 Includes: PROPHYLAXIS for venous thrombosis, systemic embolization; TREATMENT for venous thrombosis and/or pulmonary embolus.HIGH RISK: Target INR is 2.5-3.5 for patients with mechanical heart valves.CBC W/PLT COUNT & AUTO [id number] 07:49:00 Test Item Value Reference Range Interpretation [...] 0-1 H PERCENT (BEAKER) (test code = 9606)
[2022-01-21 20:34] LABS: SARS-COV-2 RT PCR NEGATIVE (NEGATIVE)
[2022-01-21 21:04] LABS: Urine Blood Negative (Negative); Urine Glucose Negative (Negative); Urine Protein 1+ (Negative); Urine Specific Gravity 1.025 (1.005-1.030)
[2022-01-21 21:31] LABS: Urine Specific Gravity/Preg 1.025 (1.005-1.030)
[2022-01-21] MEDS ORDERED: PROMETHAZINE INJ 25 MG/ML AMP ONE (21:33)
[2022-01-21] MEDS ORDERED: ONDANSETRON 4 MG (ODT) TAB ONE (21:34)
[2022-01-21] MEDS ORDERED: NA CHLORIDE 0.9% 1,000 ML ONE (21:34)
[2022-01-21 21:54] LABS: Urine Bacteria <20 /HPF (<20); Urine Mucus Slight /HPF (None Seen); Urine RBC <5 /HPF (None Seen)
[2022-01-21 22:04] LABS: Absolute Lymphocytes (CBC) 1.8 K/uL (0.7-4.9); Hematocrit 36.6 % (36.0-45.0); Lymphocytes % 18.9 % (15.3-44.8); MCV 84.2 fL (80-100); MPV 8.3 fL (7.6-11.3); RBC Red Blood Cell Count 4.35 M/uL (3.86-4.86)
[2022-01-21 23:22] LABS: Albumin 2.4 g/dL (3.4-5.0); Bilirubin Total 0.4 mg/dL (0.2-1.0); Potassium 3.2 mmol/L (3.5-5.1); Protein, Total 5.6 g/dL (6.4-8.2)
[2022-01-21] MEDS ORDERED: KCL 20 MEQ/100 mL IVPB 100 ML IV ONE (23:31)
--- NOTE | 2022-01-22 00:21 | EDPHYS ---
Physician Documentation [facility] Name: Mile Wang Age: 26 yrs Sex: Female : 1995 Arrival Date: 01/21/2022 Time: 19:07 Bed 10 Private MD: ED Physician Prosper Rocha HPI: 01/21 22:24 This 26 yrs old Female presents to ER via Ambulatory with complaints of snw Vomiting/Diarrhea. 22:24 The patient presents to the emergency department with nausea, vomiting, diarrhea. snw Onset: The symptoms/episode began/occurred suddenly, 1 day(s) ago, and became persistent. Possible causes: unknown. The symptoms are aggravated by food , The symptoms are alleviated by nothing. Associated signs and symptoms: Pertinent positives: 34 weeks . Severity of symptoms: At their worst the symptoms were moderate in the emergency department the symptoms have improved. It is unknown whether or not the patient has had similar symptoms in the past. saw negative cleaner today, po phenergan was given, unable to hold down. 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 - Social history:: Smoking status: Patient denies any tobacco usage or history of. Patient/guardian denies using alcohol. ROS: 22:24 Constitutional: Negative for fever, chills, and weight loss, Eyes: Negative for injury, snw pain, redness, and discharge, ENT: Negative for injury, pain, and discharge, Neck: Negative for injury, pain, and swelling, Cardiovascular: Negative for chest pain, palpitations, and edema, Respiratory: Negative for shortness of breath, cough, wheezing, and pleuritic chest pain, Back: Negative for injury and pain, : Negative for injury, bleeding, discharge, and swelling, MS/Extremity: Negative for injury and deformity, Skin: Negative for injury, rash, and discoloration, Neuro: Negative for headache, weakness, numbness, tingling, and seizure. 22:24 Abdomen/GI: Positive for nausea and vomiting, diarrhea. Exam: 22:12 Constitutional: This is a well developed, well nourished patient who is awake, alert, snw and in no acute distress. Head/Face: Normocephalic, atraumatic. Eyes: Pupils equal round and reactive to light, extra-ocular motions intact. Lids and lashes normal. Conjunctiva and sclera are non-icteric and not injected. Cornea within normal limits. Periorbital areas with no swelling, redness, or edema. ENT: Nares patent. No nasal discharge, no septal abnormalities noted. Tympanic membranes are normal and external auditory canals are clear. Oropharynx with no redness, swelling, or masses, exudates, or evidence of obstruction, uvula midline. Mucous membranes moist. Neck: Trachea midline, no thyromegaly or masses palpated, and no cervical lymphadenopathy. Supple, full range of motion without nuchal rigidity, or vertebral point tenderness. No Meningismus. Chest/axilla: Normal chest wall appearance and motion. Nontender with no deformity. No lesions are appreciated. 22:12 Respiratory: Lungs have equal breath sounds bilaterally, clear to auscultation and percussion. No rales, rhonchi or wheezes noted. No increased work of breathing, no retractions or nasal flaring. 22:12 Back: No spinal tenderness. No costovertebral tenderness. Full range of motion. MS/ Extremity: Pulses equal, no cyanosis. Neurovascular intact. Full, normal range of motion. Neuro: Awake and alert, GCS 15, oriented to person, place, time, and situation. Cranial nerves II-XII grossly intact. Motor strength 5/5 in all extremities. Sensory grossly intact. Cerebellar exam normal. Normal gait. 22:12 Cardiovascular: Rate: tachycardic, Heart sounds: normal. 22:12 Abdomen/GI: Inspection: gravid appearance, is noted. 22:12 Skin: Appearance: Color: pale, Temperature: normal temperature. Vital Signs: 19:29 BP 131 / 82; Pulse 79; Resp 18; Temp 98.1(TE); Pulse Ox 100% on R/A; Weight 95.71 kg; ld1 Height 5 ft. 3 in. (160.02 cm); Pain 0/10; 20:33 BP 115 / 67 Supine; Pulse 105; kl 20:33 BP 117 / 70 Sitting; Pulse 96; kl 20:33 BP 124 / 77 Standing; Pulse 114; kl 01/22 01:02 BP 118 / 72; Pulse 89; Resp 18; Pulse Ox 99% on R/A; kl 01/21 19:29 Body Mass Index 37.38 (95.71 kg, 160.02 cm) ld1 MDM: 01/21 20:27 Patient medically screened. snw 22:13 Data reviewed: vital signs, nurses notes. Data interpreted: Pulse oximetry: on room air snw is 100 %. Interpretation: normal. Counseling: I had a detailed discussion with the patient and/or guardian regarding: the historical points, exam findings, and any diagnostic results supporting the discharge/admit diagnosis, lab results, the need for outpatient follow up, to return to the emergency department if symptoms worsen or persist or if there are any questions or concerns that arise at home. Response to treatment: the patient's symptoms have markedly improved after treatment. Special discussion: Based on the patient's Hx, exam, and Dx evaluation, there is no indication for emergent surgery or inpatient Tx. It is understood by the patient/guardian that if the Sx's persist or worsen they need to return immediately for re-evaluation. Based on the history and exam findings, there is no indication for further emergent testing or inpatient evaluation. I discussed with the patient/guardian the need to see the primary care provider for further evaluation of the symptoms. 01/21 19:31 Order name: COVID-19/FLU A+B; Complete Time: 20:36 ld1 01/21 19:45 Order name: Urine Microscopic Only; Complete Time: 22:07 snw 01/21 21:04 Order name: Urine Dipstick-Ancillary; Complete Time: 21:16 EDMS 01/21 21:09 Order name: Urine --Ancillary (enter results); Complete Time: 21:32 mw2 01/21 21:26 Order name: CBC with Diff; Complete Time: 22:07 snw 01/21 21:26 Order name: CMP; Complete Time: 23:24 snw 01/21 19:45 Order name: Urine Dipstick-Ancillary (obtain specimen); Complete Time: 21:08 snw 01/21 19:45 Order name: Urine Test (obtain specimen); Complete Time: 21:09 snw 01/21 22:03 Order name: Urine Culture EDMS Administered Medications: 21:54 Drug: NS 0.9% 1000 ml Route: IV; Rate: 1 bolus; Site: right antecubital; kl 23:03 Follow up: IV Status: Completed infusion; IV Intake: 1000ml kl 21:54 Drug: Phenergan (promethazine) 6.25 mg Route: IVP; Site: right antecubital; kl 23:03 Follow up: Response: No adverse reaction; Marked relief of symptoms kl 21:54 Drug: Zofran (Ondansetron) 4 mg Route: PO; kl 23:03 Follow up: Response: No adverse reaction; Marked relief of symptoms kl 23:36 Drug: NS 0.9% with KCl 20 mEq/L 1000 ml Route: IV; Rate: 1000 ml/hr; Site: right kl antecubital; 01/22 01:01 Follow up: IV Intake: 100ml kl Disposition: 02:55 Co-signature as Attending Physician, Prosper Rocha MD I agree with the assessment and rt plan of care. Disposition Summary: 01/22/22 00:21 Discharge Ordered Location: Home snw Condition: Stable snw Diagnosis - Dehydration snw - Hypokalemia snw Followup: snw - With: Emergency Department - When: As needed - Reason: Worsening of condition Followup: snw - With: Private Physician - When: 2 - 3 days - Reason: Recheck today's complaints, Continuance of care, Re-evaluation by your physician Discharge Instructions: - Discharge Summary Sheet snw - Dehydration, Adult snw - Potassium Content of Foods snw - Hypokalemia snw - Rehydration, Adult snw Forms: - Medication Reconciliation Form snw - Thank You Letter snw - Antibiotic Education snw - Prescription Opioid Use snw Prescriptions: - promethazine 25 mg Rectal suppository - insert 1 suppository by RECTAL route every 6 hours; 12 suppository; Refills: 0, snw Product Selection Permitted Signatures: Dispatcher [employer] EDMS Maria Guadalupe Aldridge RN RN kl Waters, Shelly, SLEEVE BOTTOM FELLER-C SLEEVE BOTTOM FELLER-Csnw Nory Holland RN RN ld1 Prosper Rocha MD MD rt
--- NOTE | 2022-01-22 00:21 | ER ---
Nurse's Notes [facility] Name: Mile Wang Age: 26 yrs Sex: Female : 1995 Arrival Date: 01/21/2022 Time: 19:07 Bed 10 Private MD: Diagnosis: Dehydration;Hypokalemia Presentation: 01/21 19:29 Chief complaint: Patient states: Vomiting/Diarrhea since this morning. Coronavirus ld1 screen: At this time, the client does not indicate any symptoms associated with coronavirus-19. Ebola Screen: No symptoms or risks identified at this time. Initial Sepsis Screen: Does the patient meet any 2 criteria? No. Patient's initial sepsis screen is negative. Does the patient have a suspected source of infection? No. Patient's initial sepsis screen is negative. Risk Assessment: Do you want to hurt yourself or someone else? Patient reports no desire to harm self or others. Onset of symptoms was January 21, 2022. 19:29 Method Of Arrival: Ambulatory ld1 19:29 Acuity: BAIRON 3 ld1 Triage Assessment: 19:30 General: Appears in no apparent distress. comfortable, Behavior is calm, cooperative, ld1 appropriate for age. Pain: Denies pain. EENT: No signs and/or symptoms were reported regarding the EENT system. Neuro: Level of Consciousness is awake, alert, obeys commands, Oriented to person, place, time, situation, Appropriate for age. Cardiovascular: Capillary refill < 3 seconds Patient's skin is warm and dry. Respiratory: Airway is patent Respiratory effort is even, unlabored. GI: Abdomen is round non-distended, Reports nausea, vomiting. : No signs and/or symptoms were reported regarding the genitourinary system. Derm: No signs and/or symptoms reported regarding the dermatologic system. Musculoskeletal: No signs and/or symptoms reported regarding the musculoskeletal system. 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 - Social history:: Smoking status: Patient denies any tobacco usage or history of. Patient/guardian denies using alcohol. Screenin:35 Abuse screen: Denies threats or abuse. Nutritional screening: No deficits noted. kl Tuberculosis screening: No symptoms or risk factors identified. Fall Risk None identified. Assessment: 20:34 General: Appears in no apparent distress. comfortable, Behavior is calm, cooperative. kl Pain: Denies pain. Neuro: No deficits noted. Cardiovascular: No deficits noted. Respiratory: No deficits noted. GI: Reports diarrhea, vomiting, since 0230. : No deficits noted. No signs and/or symptoms were reported regarding the genitourinary system. 23:36 Reassessment: Patient appears in no apparent distress at this time. Patient and/or kl family updated on plan of care and expected duration. Pain level reassessed. Patient is alert, oriented x 3, equal unlabored respirations, skin warm/dry/pink. Vital Signs: 19:29 BP 131 / 82; Pulse 79; Resp 18; Temp 98.1(TE); Pulse Ox 100% on R/A; Weight 95.71 kg; ld1 Height 5 ft. 3 in. (160.02 cm); Pain 0/10; 20:33 BP 115 / 67 Supine; Pulse 105; kl 20:33 BP 117 / 70 Sitting; Pulse 96; kl 20:33 BP 124 / 77 Standing; Pulse 114; kl / 01:02 BP 118 / 72; Pulse 89; Resp 18; Pulse Ox 99% on R/A; kl 01/21 19:29 Body Mass Index 37.38 (95.71 kg, 160.02 cm) ld1 ED Course: 01/21 19:07 Patient arrived in ED. dt4 19:30 Triage completed. ld1 19:30 Arm band placed on right wrist. ld1 19:36 COVID-19/FLU A+B Sent. ld1 19:46 Keyonna Riley FNP-C [facility]. snw 19:46 Prosper Rocha MD is Attending Physician. snw 21:00 Inserted saline lock: 22 gauge in right antecubital area, using aseptic technique. kl 21:12 Urine Microscopic Only Sent. kl 21:54 CMP Sent. kl 21:54 CBC with Diff Sent. 01/22 01:02 No provider procedures requiring assistance completed. IV discontinued, intact, kl bleeding controlled, No redness/swelling at site. Pressure dressing applied. 01:03 Patient has correct armband on for positive identification. kl Administered Medications: 01/21 21:54 Drug: NS 0.9% 1000 ml Route: IV; Rate: 1 bolus; Site: right antecubital; kl 23:03 Follow up: IV Status: Completed infusion; IV Intake: 1000ml 21:54 Drug: Phenergan (promethazine) 6.25 mg Route: IVP; Site: right antecubital; kl 23:03 Follow up: Response: No adverse reaction; Marked relief of symptoms 21:54 Drug: Zofran (Ondansetron) 4 mg Route: PO; 23:03 Follow up: Response: No adverse reaction; Marked relief of symptoms 23:36 Drug: NS 0.9% with KCl 20 mEq/L 1000 ml Route: IV; Rate: 1000 ml/hr; Site: right kl antecubital; 01/22 01:01 Follow up: IV Intake: 100ml Medication: 01/21 20:35 VIS not applicable for this client. Intake: 23:03 IV: 1000ml; Total: 1000ml. 01/22 01:01 IV: 100ml; Total: 1100ml. Outcome: 00:21 Discharge ordered by . sncameron 01:02 Discharged to home ambulatory. 01:02 Condition: improved 01:02 Discharge instructions given to patient, Instructed on discharge instructions, follow up and referral plans. Demonstrated understanding of instructions, follow-up care, medications, Prescriptions given X 1. 01:03 Patient left the ED. Signatures: Maria Guadalupe Aldridge, RN RN Keyonna Gold, BRIDGES SUPERVISOR-C BRIDGES SUPERVISOR-Csnw Nory Holland RN RN ld1 Melanie Patino dt4 Corrections: (The following items were deleted from the chart) 01/21 19:31 19:29 Pulse 79bpm; Resp 18bpm; Pulse Ox 100% RA; Temp 98.1F Temporal; 95.71 kg; Height ld1 5 ft. 3 in.; BMI: 37.3; Pain 0/10; ld1
[2022-01-22] MEDS ORDERED: POTASSIUM CL SA 10 MEQ TAB PO ONE (00:26)
[2022-01-22 01:20] VITALS: TEMP 98.1
[2022-01-22 01:31] VITALS: BP 118/72; O2SAT 99
== END 2022-01-22 01:03 | disposition home or self-care (01) ==
LOC: ER 19:04
DX: E86.0 Dehydration (principal); E87.6 Hypokalemia; Z20.822 Contact with and (suspected) exposure to COVID-19; Z88.1 Allergy status to other antibiotic agents; Z88.5 Allergy status to narcotic agent
CPT/HCPCS: 96361; 87088; 85025; 87086; 36415; 81025; 80053; 0240U; 96374; 99284; J2550; J3480; Q0162; J7030; 81003; 81015

== ENCOUNTER 2022-04-20 07:09 | Emergency (ER) | payer BC, OTHER ==
--- OUTSIDE RECORDS SUMMARY | 2022-04-20 07:24 | XMS REPORT | Continuity of Care Document ---
:1995 Author Organization [facility] t Address [address] [place] [address] Care Team Providers Name Role Phone Asked, No Pcp Primary Care Physician Unavailable JOANNE PARKINSON Attending Clinician Unavailable BRUCE FOFANA Attending Clinician Unavailable RADHA NOBLES Attending Clinician Unavailable MAU RHOADES Attending Clinician Unavailable Nurse, Reddy [facility] Attending Clinician Unavailable Unknown, Attending Attending Clinician Unavailable Provider, Ang-Rmchp Temp Attending Clinician Unavailable Radha Nobles CNM Attending Clinician COLT MICHAELS Attending Clinician Unavailable Dennys Lara MD Attending Clinician RAEVN GOLDSMITH Attending Clinician Unavailable Raven Goldsmith MD Attending Clinician ALMA SOLIS Attending Clinician Unavailable CHIQUIS KATE Attending Clinician Unavailable CHIQUIS KATE Attending Clinician Unavailable Eladia Conklin MD Attending Clinician [phone] Chiquis Kate MD Attending Clinician Nory Jiménez DO Attending Clinician Martha Agarwal MD Attending Clinician Irma FUENTESCNP, Alma C Attending Clinician [phone] Doctor Unassigned, [place] Attending Clinician Unavailable KEVIN SINGH Attending Clinician Unavailable Risk, Jhx-Nqyae-Xl/High Attending Clinician Unavailable Francisco [facility], Kevin Hand Attending Clinician DENNYS LARA Attending Clinician Unavailable Areli Patel DO Attending Clinician AMY SHARMA Attending Clinician Unavailable Sharma [facility], Amy Don Attending Clinician Pob, Adc Lab Main Attending Clinician Unavailable Vira Lowry MD, Neal Attending Clinician [phone] NEAL REED Attending Clinician Unavailable Faculty, [facility] [place] [facility] Mfm Attending Clinician Unavailable Trever Hernandez Attending Clinician LUKE FISH Attending Clinician Unavailable Luke Fish MD Attending Clinician ARELI PATEL Attending Clinician Unavailable Zamzam MCGOWAN, Vijaya Meeks Attending Clinician Unavailable Ultrasound, Ang-Mfm Attending Clinician Unavailable Zen Garcia DO Attending Clinician TREVER KATZ Attending Clinician Unavailable Anton Renteria MD Attending Clinician ANTON RENTERIA Attending Clinician Unavailable 1, [facility] Us Room Attending Clinician Unavailable Abena Gonzalez Attending Clinician ABENA PATEL Attending Clinician Unavailable Lab, Pea-Rmchp Attending Clinician Unavailable RICHARD ANDERSON Attending Clinician Unavailable RICHARD ANDERSON Attending Clinician Unavailable KIARRA TATE Attending Clinician Unavailable Kiarra Brewer Attending Clinician ANGELO KENNEY Attending Clinician Unavailable Angelo Kenney MD Attending Clinician BERTHA LANDAVERDE Attending Clinician Unavailable Bertha Hale Attending Clinician Aditi MD, Richard Gene Attending Clinician ARMEN RODRIGUEZ Attending Clinician Unavailable Armen Rodriguez MD Attending Clinician Lab, [facility] [place] [facility] Attending Clinician Unavailable LILIANA SALINAS Attending Clinician Unavailable Brad GAITAN, Liliana Waters Attending Clinician Desiree TAYLOR, Lauryn Hemphill Attending Clinician LAURYN RAMÍREZ Attending Clinician Unavailable Mesfin Grant RN Attending Clinician Unavailable Gabriel TAYLOR, Mary Pickett Attending Clinician MARY RIOS Attending Clinician Unavailable Only, Adc Test Attending Clinician Unavailable Cheo Galvin MD Attending Clinician Peace Cardenas Attending Clinician Wong Cade DO Attending Clinician Santosh Simon DO Attending Clinician Terence, [facility] [place] [facility] Nurse Attending Clinician Unavailable Kulwinder MCGOWAN, Kevin Camacho Attending Clinician Unavailable TISH NEVAREZ Attending Clinician Unavailable Tish Joyner Attending Clinician LORY URBINA I Attending Clinician Unavailable Lory Urbina DO, I Attending Clinician LUKE FISH Admitting Clinician Unavailable JOANNE PARKINSON Admitting Clinician Unavailable RAVEN GOLDSMITH Admitting Clinician Unavailable CHIQUIS KATE Admitting Clinician Unavailable Chiquis Kate MD Admitting Clinician DENNYS LARA Admitting Clinician Unavailable Dennys Lara MD Admitting Clinician Luke Fish MD Admitting Clinician BERTHA LANDAVERDE Admitting Clinician Unavailable Mary Rios MD Admitting Clinician MIRELLA STANFORD Admitting Clinician Unavailable TISH NEVAREZ Admitting Clinician Unavailable LORY URBINA I Admitting Clinician Unavailable Payers Payer Name Policy Type Policy Number Effective Date Expiration Date [facility] SELECT [id number] 2021:00:00 [facility] [id number] 2017 CHOICE [place] STAR 00:00:00 Problems Condition Condition Condition Status Onset Resolution Last Treating Co mments Source Name Details Category Date Date Treatment Clinician Date Anemia, Anemia, Disease Active 2021-03 Univers 2-27 it y of 00:00: [place] [facility] 37 weeks 37 weeks Disease Active 2021-03 Unive rs gestation gestation 2-05 ity of of of 00:00: [facility] Seizure Seizure Disease Active 2021-03 Univers 1-24 ity of 00:00: [place] [facility] Disease Active 2021-03 Uni vers with with 0-11 ity of adoption adoption 00:00: [place] planned planned 00 [facility] URI (upper URI (upper Disease Active U nivers respirator respirator 9-25 it y of y y 00:00: [place] infection) infection) 00 Ne dicnv Branch 27 weeks 27 weeks Disease Active Unive rs gestation gestation 9-25 ity of of of 00:00: [place] [facility] Round Round Disease Active Univers ligament ligament 9-25 ity of pain pain 00:00: [place] 00 [facility] Branch BMI BMI Disease Active Univers 35.0-35.9, 35.0-35.9, 9-23 it y of adult adult 00:00: [place] 00 [facility] Elevated Elevated Disease Active Unive rs blood blood 8-09 ity of pressure pressure 00:00: [place] reading reading 00 Medical without without Branch [...] of high-risk high-risk 00:00: [place] [facility] History of History of Disease Active Overview : Univers anxiety anxiety 5-05 Formattin ity o f 00:00: g of this note Medical might be Branch different from the original. Reports on buspirone Multiparit Multiparit Disease Active U nivers y y 5-05 ity of 00:00: Medical Branch Obesity in Obesity in Disease Active U nivers 5-05 ity of 00:00: Medical Branch Frequent Frequent Disease Active Unive rs UTI UTI 8- ity of 00:00: Medical Branch Seizure Seizure Disease Active Overview: Univ ers disorder disorder - Formattin ity of in in 00:00: g of this [place] 00 note Medi tressa might be Branch different from the original. Last episode 2 months ago , not on meds Abdominal Abdominal Disease [facility] Abnormal Abnormal Disease [facility] UTI UTI Disease Active Univers symptoms symptoms 4-01 ity of 00:00: Medical Branch Abnormal Abnormal Disease Active Unive rs EKG EKG 8- ity of 00:00: Medical Branch Anxiety Anxiety Disease Active Univers during during 6-28 [place] of 00[place] in third in third 00 Medica l trimester, trimester, Br anch antepartum antepartum Rh Rh Disease Active Univers negative negative 6-15 ity of state in state in 00:00: [place] antepartum antepartum 00 Me dical period period Branch Vaginal Vaginal Disease Active Univers discharge discharge 7- ity of 00:00: [place] [facility] Chlamydia Chlamydia Disease Active Uni vers 5-10 ity of 00:00: Medical Branch Bipolar Bipolar Disease Active Overview: Univ ers disease, disease, 07-15 Formattin ity of chronic chronic 00:00: g of this note Medical might [...] Date Date Clinician Nitrofur Propensi Active Palpitations 2020-0 Univers antoin ty to 10-09 ity of Monohyd/ adverse 00:00: [place] M-Cryst reaction 00 Medical s Branch Lacosami Propensi Active Hives 2020-0 Univer s de ty to 10-09 ity of adverse 00:00: [place] reaction 00 Medical s Branch NITROFUR DRUG Active Palpitations 2020-0 Un aubree ANTOIN 10-09 ity of MONOHYD/ 00:00: [place] M-CRYST 00 Medical Branch LACOSAMI DRUG Active Hives 2020-0 Univers DE INGREDI 10-09 ity of 00:00: [place] 00 Medical Branch Nitrofur Drug Active Anxiety 2020-[address] [facility] antoin Allergy 7[facility]16 [facility] Monohyd/ 00:00: Medical M-Cryst 00 Center Lacosami Drug Active Hives 2020-[address] [facility] de Allergy 7[facility]16 [facility] 00:00: Medical 00 Center LACOSAMI Allergy Active High Hives 2020-[address] [facility] DE 7-16 [facility] 00:00: Medical 00 Center NITROFUR Allergy Active Med Anxiety 2020-[address] [facility] [address] ANTOIN 7-16 [facility] MONOHYD/ 00:00: Medical M-CRYST 00 Center Doxycycl Drug Active Hives, Rash 2020-[address] ine Allergy 2-12 [facility] 00:00: Medical 00 Center Tramadol Drug Active Other (See 2020-[address] Allergy Comments) 2-12 [facility] 00:00: Medical 00 Center Doxycycl [...] INGREDI 2-12 ity of 00:00: [place] 00 [facility] DOXYCYCL Allergy Active High Hives [facility] INE 2-12 [facility] 00:00: Medical [address] [place] [address] TRAMADOL Allergy Active Other [facility] 2[facility]12 [facility] 00:00: Medical 00 [place] Social History Social Habit Start Date Stop Date Quantity Comments Source ASSERTION 2021-06-06 University 00:00:00 [facility] History SDOH [facility] Alcohol Std Medical Cent[facility] r Drinks History SDOH [facility] Alcohol Binge Medical Zay ter History SDOH [facility] Alcohol Comment Medical C enter Exposure to 2022-03-08 2022-03-18 Not sure [facility] SARS-CoV-2 00:00:00 14:16:00 [facility] [place] [facility] (event) [place] Alcohol intake 2020-09-24 2020-09-24 Ex-drinker [facility] 00:00:00 00:00:00 (finding) [facility] History SDOH 2020-09-22 2020-09-[address] [facility] Alcohol Frequency 00:00:00 00:00:00 [facility] Tobacco use and 2020-09-21 2020-09-[address] [facility] exposure 00:00:00 00:00:00 [facility] Sex Assigned At [address] [facility] 00:00:00 00:00:00 [facility] Smoking Status Start Date Stop Date Source Never smoked tobacco [facility] Medications Ordered Filled Start Stop Current Ordering Indication Dosage Frequency Signature Comments Components Source Medication Medication Date Date Medication? Clinician (SIG) Name Name ketorolac 2021-03- No 30mg 30 mg, Unive rs (TORADOL) 04-20 Slow IV ity of injection 00:15: 23:30 Push, [place] 30 mg 00 :00 ONCE, 1 Medical dose, On [place] 02/16/22 at 1815, SHAYNA FENTanyl PF 2021-03- No 75ug 75 mcg, Un aubree (SUBLIMAZE 04-19 Slow IV ity o f (PF)) 23:15: 22:46 Push, [place] injection 00 :00 ONCE, 1 Medical 75 mcg dose, On [facility] 02/16/22 at 1715, STAT iopamidol 2021-03- No [id number] 74mL 74 mL, U nivers (ISOVUE 2-11 12-11 Intravenou ity o f 370-500 mL) 21:00: 21:15 s, ONCE, 1 [place] injection 00 :00 dose, On Medica l 74 mL [place] Branch 02/16/22 at 1515, Routine metoclopram 2021-03 Yes [id number] 10mg Take 1 Univers arabella HCl 10 2-11 tablet by ity of mg tablet 00:00: mouth [place] 00 every 6 Medical (six) Branch hours. metoclopram 2021-03 Yes [id number] 10mg Take 1 Univers arabella HCl 10 2-11 tablet by ity of mg tablet 00:00: mouth [place] 00 every 6 Medical (six) Branch hours. metoclopram 2021-03 Yes [id number] 10mg Take 1 Univers arabella HCl 10 2-11 tablet by ity of mg tablet 00:00: mouth [place] 00 every 6 Medical (six) Branch hours. metoclopram 2021-03 Yes [id number] 10mg Take 1 Univers arabella HCl 10 2-11 tablet by ity of mg tablet 00:00: mouth [place] 00 every 6 Medical (six) Branch hours. metoclopram 2021-03 Yes [id number] 10mg Take 1 Univers arabella HCl 10 2-11 tablet by ity of mg tablet 00:00: mouth [place] 00 every 6 Medical (six) Branch hours. metoclopram 2021-03 Yes [id number] 10mg Take 1 Univers arabella HCl 10 2-11 tablet by ity of mg tablet 00:00: mouth [place] 00 every 6 Medical (six) Branch hours. foLIC acid 2021-03 Yes 1mg 1 mg, Univer s (FOLATE) 2-07 Oral, ity of tablet 1 mg 15:00: DAILY, [place] 00 First dose Medical on Thu Branch 02/12/22 at 0900, Until Discontinu ed, Routine ferrous 2021-03 Yes 325mg 325 mg, Univer s sulfate 2-07 Oral, Q ity of tablet 325 15:00: [place]DAY[place] 00 First dose Medical on Thu Branch 02/12/22 at 0900, Until Discontinu ed, Routine docusate 2021-03 Yes [id number] 200mg Take 2 U nivers 100 mg 2-07 capsules ity of capsule 00:00: by mouth [place] 00 once daily Medical as needed Branch for Constipati on. ferrous 2021-03 Yes [id number] 325mg Take 1 Un [place]ubree sulfate 325 2-07 tablet by ity of mg (65 mg 00:00: mouth [place] iron) 00 every Medical tablet other day. Branch ibuprofen 2021-03 Yes [id number] 600mg Take 1 Univers 600 mg 2-07 tablet by ity of tablet 00:00: mouth [place] 00 every 6 Medical (six) Branch hours as needed (Pain). Take with food or milk. polyethylen 2021-03 Yes 17g 17 g, Unive rs e glycol 2-07 Oral, ity of 3350 powder 00:00: DAILY, [place] 17 g 00 First dose Medical on Thu Branch 02/11/22 at 1800, Until Discontinu ed, Routine docusate 2021-03 Yes [id number] 200mg Take 2 U nivers 100 mg 2-07 capsules ity of capsule 00:00: by mouth [place] 00 once daily Medical as needed Branch for Constipati on. ferrous 2021-03 Yes [id number] 325mg Take 1 Un [place] sulfate 325 2-07 tablet by ity of mg (65 mg 00:00: mouth [place] iron) 00 every Medical tablet other day. Branch ibuprofen 2021-03 Yes [id number] 600mg Take 1 Univers 600 mg 2-07 tablet by ity of tablet 00:00: mouth [place] 00 every 6 Medical (six) Branch hours as needed (Pain). Take with food or milk. docusate 2021-03 Yes [id number] 200mg Take 2 U nivers 100 mg 2-07 capsules ity of capsule 00:00: by mouth [place] 00 once daily Medical as needed Branch for Constipati on. ferrous 2021-03 Yes [id number] 325mg Take 1 Un [place] sulfate 325 2-07 tablet by ity of mg (65 mg 00:00: mouth [place] iron) 00 every Medical tablet other day. Branch ibuprofen 2021-03 Yes [id number] 600mg Take 1 Univers 600 mg 2-07 tablet by ity of tablet 00:00: mouth [place] 00 every 6 Medical (six) Branch hours as needed (Pain). Take with food or milk. docusate 2021-03 Yes [id number] 200mg Take 2 U nivers 100 mg 2-07 capsules ity of capsule 00:00: by mouth [place] 00 once daily Medical as needed Branch for Constipati on. ferrous 2021-03 Yes [id number] 325mg Take 1 Un [place] sulfate 325 2-07 tablet by ity of mg (65 mg 00:00: mouth [place] iron) 00 every Medical tablet other day. Branch ibuprofen 2021-03 Yes [id number] 600mg Take 1 Univers 600 mg 2-07 tablet by ity of tablet 00:00: mouth [place] 00 every 6 Medical (six) Branch hours as needed (Pain). Take with food or milk. docusate 2021-03 Yes [id number] 200mg Take 2 U nivers 100 mg 2-07 capsules ity of capsule 00:00: by mouth [place] 00 once daily Medical as needed Branch for Constipati on. ferrous 2021-03 Yes [id number] 325mg Take 1 Un [place] sulfate 325 2-07 tablet by ity of mg (65 mg 00:00: mouth [place] iron) 00 every Medical tablet other day. Branch ibuprofen 2021-03 Yes [id number] 600mg Take 1 Univers 600 mg 2-07 tablet by ity of tablet 00:00: mouth [place] 00 every 6 Medical (six) Branch hours as needed (Pain). Take with food or milk. docusate 2021-03 Yes [id number] 200mg Take 2 U nivers 100 mg 2-07 capsules ity of capsule 00:00: by mouth [place] 00 once daily Medical as needed Branch for Constipati on. ferrous 2021-03 Yes [id number] 325mg Take 1 Un [place] sulfate 325 2-07 tablet by ity of mg (65 mg 00:00: mouth [place] iron) 00 every Medical tablet other day. Branch ibuprofen 2021-03 Yes [id number] 600mg Take 1 Univers 600 mg 2-07 tablet by ity of tablet 00:00: mouth [place] 00 every 6 Medical (six) Branch hours as needed (Pain). Take with food or milk. docusate 2021-03 Yes [id number] 200mg Take 2 U nivers 100 mg 2-07 capsules ity of capsule 00:00: by mouth [place] 00 once daily Medical as needed Branch for Constipati on. ferrous 2021-03 Yes [id number] 325mg Take 1 Un [place] sulfate 325 2-07 tablet by ity of mg (65 mg 00:00: mouth [place] iron) 00 every Medical tablet other day. Branch ibuprofen 2021-03 Yes [id number] 600mg Take 1 Univers 600 mg 2-07 tablet by ity of tablet 00:00: mouth [place] 00 every 6 Medical (six) Branch hours as needed (Pain). Take with food or milk. docusate 2021-03 Yes [id number] 200mg Take 2 U nivers 100 mg 2-07 capsules ity of capsule 00:00: by mouth [place] 00 once daily Medical as needed Branch for Constipati on. ferrous 2021-03 Yes [id number] 325mg Take 1 Un [place] sulfate 325 2-07 tablet by ity of mg (65 mg 00:00: mouth [place] iron) 00 every Medical tablet other day. Branch ibuprofen 2021-03 Yes [id number] 600mg Take 1 Univers 600 mg 2-07 tablet by ity of tablet 00:00: mouth [place] 00 every 6 Medical (six) Branch hours as needed (Pain). Take with food or milk. foLIC acid 2021-03- Yes [id number] 1mg Take 1 Univers 1 mg tablet 04-15-08 tablet by it y of 00:00: 05:59 mouth in [place] 00 :00 the Medical morning Branch for 90 days. foLIC acid 2021-03- Yes [id number] 1mg Take 1 Univers 1 mg tablet 04-15- tablet by it y of 00:00: 05:59 mouth in [place] 00 :00 the Medical morning Branch for 90 days. foLIC acid 2021-03- Yes [id number] 1mg Take 1 Univers 1 mg tablet 04-15-08 tablet by it y of 00:00: 05:59 mouth in [place] 00 :00 the Medical morning Branch for 90 days. foLIC acid 2021-03- Yes [id number] 1mg Take 1 Univers 1 mg tablet 04-15-08 tablet by it y of 00:00: 05:59 mouth in [place] 00 :00 the Medical morning Branch for 90 days. foLIC acid 2021-03- Yes [id number] 1mg Take 1 Univers 1 mg tablet 04-15-08 tablet by it y of 00:00: 05:59 mouth in [place] 00 :00 the Medical morning Branch for 90 days. foLIC acid 2021-03- Yes [id number] 1mg Take 1 Univers 1 mg tablet 04-15-08 tablet by it y of 00:00: 05:59 mouth in [place] 00 :00 the Medical morning Branch for 90 days. foLIC acid 2021-03- Yes [id number] 1mg Take 1 Univers 1 mg tablet 04-15 tablet by it y of 00:00: 05:59 mouth in [place] 00 :00 the [facility] for 90 days. foLIC acid 2021-03- Yes [id number] 1mg Take 1 Univers 1 mg tablet 04-1508 tablet by it y of 00:00: 05:59 mouth in [place] 00 :00 the [facility] for 90 days. ibuprofen 2021-03 Yes 600mg 600 mg, Univ ers (IBU) 2-06 Oral, ity of tablet 600 19:22: Q6HPRN, [place] mg 45 Starting Medical on [facility] 02/11/22 at 1322, Until Discontinu ed, Routine, Pain (scale 4-6) acetaminoph 2021-03 Yes 650mg 650 mg, Un aubree en 2-06 Oral, ity of (TYLENOL) 19:22: Q6HPRN, [place] tablet 650 45 Starting Medic al mg on [facility] 02/11/22 at 1322, Until Discontinu ed, Routine, Pain (scale 1-3) diphenhydrA 2021-03 Yes 25mg 25 mg, Univ ers MINE 2-06 Oral, ity of (BENADRYL) 19:22: Q6HPRN, [place] tablet 25 45 Starting Medica l mg on [facility] 02/11/22 at 1322, Until Discontinu ed, Routine, Sleep, Itching ondansetron 2021-03 Yes 4mg 4 mg, Slow Univers (ZOFRAN 2-06 IV Push, ity of (PF)) 19:22: Q8HPRN, [place] injection 4 45 Starting Medi tressa mg on [facility] 02/11/22 at 1322, Until Discontinu ed, Routine, Nausea and Vomiting (N/V) simethicone 2021-03 Yes 160mg 160 mg, Un [place] (GAS RELIEF 2-06 Oral, ity of (SIMETHICON 19:22: PC+HSPRN, [place] E)) 45 Starting Medical chewable on [facility] tablet 160 02/11/22 at mg 1322, Until Discontinu ed, Routine, Gas docusate 2021-03 Yes 200mg 200 mg, Unive rs (COLACE) 2-06 Oral, ity of capsule 200 19:22: QDAILYPRN, [place] mg 45 Starting Medical on Tue Branch 02/11/22 at 1322, Until Discontinu ed, Routine, Constipati on magnesium 2021-03 Yes 30mL 30 mL, Univer s hydroxide 2-06 Oral, ity of (MILK OF 19:22: QDAILYPRN, [place] MAGNESIA) 45 Starting Medica l 400 mg/5 mL on Thu Branch suspension 02/11/22 at 30 mL 1322, Until Discontinu ed, Routine, Constipati on benzocaine- 2021-03 Yes Topical, [place] menthol 2-06 PRN, ity of (DERMOPLAST 19:22: [place] 20-0.5 % 44 on Thu Medical topical 02/11/22 at Branch spray 1322, Until Discontinu ed, Routine, Perineum discomfort oxytocin 2021-03- No 300mL/h 300 mL/hr, Univers (PITOCIN) 04-14 IV ity of 30 units in 16:59: 19:22 Infusion, [place] NS 500 mL 29 :49 SEE-INSTRU Medi tressa IV infusion CTIONS, Branc h Starting on Thu02/11/[address] at 300 mL/hr for 1 hr then 150 mL/hr for 1 hr. & nbsp; For post delivery uterotonic
PIB 2021-03- No Epidural, Univers ropivacaine 04-14 CONTINUOUS i ty of 0.2 % 16:30: 18:20 PRN, [place] (NAROPIN 00 :56 Starting Medical (PF)) on [facility] epidural 02/11/22 at infusion 1030, Until 02/11/22 at 1220, Routine, Intra-op bupivacaine 2021-03- No Caudal Uni vers (preserv 04-14 Block, ity of free) 15:33: 18:20 ONCE INTRA [place] (SENSORCAIN 00 :56 PROCEDURE, Me dical E MPF) 0.25 Starting Bran ch % (2.5 on e mg/mL) 02/11/22 at injection 0933, Until Tu02/11/22 at 1220, Routine, Intra-op lamoTRIgine 2021-03 Yes 75mg 75 mg, Univ ers (LAMICTAL) 2 Oral, ity of tablet 75 13:30: QAM-0730, [place] mg 00 First dose Medical on Thu Branch 02/11/22 at 0730, Until Discontinu ed, Routine ondansetron 2021-03 No 4mg 4 mg, Slow Univers (ZOFRAN 04-14 IV Push, ity of (PF)) 12:40: 12:44 ONCE, On [place] injection 4 00 :00 Tue Medical mg 02/11/22 at Branch 0645, For 1 dose
Do ses of ondansetro n 16 mg and above need to be administer ed via IV piggyback. For Dose >=24mg ECG monitoring is advisable.
ropivacaine 2021-03 Epidural, Univers 0.2 % 04-14 CONTINUOUS ity of (NAROPIN 06:45: 18:20 PRN, [place] (PF)) 00 :56 Starting Medical epidural on Thu Branch infusion 02/11/22 at 0045, Until Discontinu ed, Routine, Intra-op lactated 2021-03 No 500mL at 999 [facility] rs ringers IV 04-14 mL/hr, 500 it y of infusion 06:45: 06:16 mL, IV [place] 500 mL 00 :00 Infusion, Medical ONCE, 1 Branch dose, On 02/11/22 at 0045, Routine lidocaine-e 2021-03 No Intraderma Univers pinephrine 04-14- l, ONCE ity o f (XYLOCAINE 06:40: 18:20 INTRA [place] W/EPINEPHRI 00 :56 PROCEDURE, Ne dical NE) 1.5 Starting Branch %-1:200,000 on Tue injection 02/11/22 at 0040, Until Discontinu ed, Routine, Intra-op sodium 2021-03- No 30mL 30 mL, Univers citrate-cit 04-14- Oral, ity of keila acid 05:55: 06:16 PRE-PROCED [place] (BICITRA) 08 :00 URE ONCE, Medic al 500-334 1 dose, Branch mg/5 mL Starting solution 30 on Mon mL 02/10/22 at 2355, Until Thu02/11/22 at 0016, Routine, Surgery/Pr ocedure lamoTRIgine 2021-03 Yes 100mg 100 mg, Un [place] (LAMICTAL) 2-06 Oral, QHS, ity of tablet 100 03:00: First dose [place] mg 00 on [facility] 02/10/22 at Branch 2100, Until Discontinu ed, Routine proMETHazin 2021-03- No 25mg 25 mg, IV Univers e 04-14 Piggyback, ity of (PHENERGAN) 00:45: 00:59 at 200 [place] as 25 mg in [place] 00 :00 mL/hr Medical 50 mL IV Administer Branc h piggyback over 15 (CNR) Minutes, ONCE, 1 dose, On [facility] 02/10/22 at 1845, Routine butorphanol 2021-03- No 1mg 1 mg, Univ ers (STADOL) 04-14 Intravenou ity of injection 1 00:45: 00:09 s, ONCE, 1 [place] mg 00 :00 dose, On [facility] 02/10/22 at 1845, Routine oxytocin 2021-03- No 2mU/min at 2-40 Un [place] (PITOCIN) 04-14- mL/hr, IV ity of 30 units in 00:02: 19:22 Infusion, [place] NS 500 mL 47 :49 TITRATE, Medica l IV infusion Starting Bran ch on Thu02/10/22 at 1802, Until Thu02/11/22 at 1322, SHAYNA D5W-LR IV 2021-03- No 1000mL at 1-125 U nivers infusion 04-13-06 mL/hr, IV ity o f 1,000 mL 22:58: 19:22 Infusion, [place] as 45 :49 TITRATE, Medical Starting [place] on Thu02/10/22 at 1658, Until Thu02/11/22 at 1322, Routine lamoTRIgine 2021-03- No 100mg Take 100 Univers 100 mg 04-13-05 mg by ity of tablet 17:04: 00:00 mouth at [place] 29 :00 bedtime. [facility]03- No 100mg Take 100 Univers 100 mg 2-05 12-05 mg by ity of tablet 17:04: 00:00 mouth at [place] 29 :00 bedtime. [facility] 25 [facility] 2021-03 Yes 1{tbl} 1 tablet, [place] vitamin 1-25 Oral, ity of w/FA tablet 15:00: DAILY, [place] 1 tablet 00 First dose Medic al on Thu Branch 01/31/22 at 0900, Until Discontinu ed, Routine magnesium 2021-03- No 2g 2 g, IV Univ ers sulfate in 04-01 Piggyback, it y of water 2 22:45: 22:00 Administer Dwayne as gram/50 mL 00 :00 over 60 Medica l (4 %) Minutes, Branch infusion 2 ONCE, 1 g dose, On [place] 01/30/22 at 1645, Routine NaCl 0.9% 2021-03 No 1000mL at 999 Uni vers (NS) bolus 04-01 mL/hr, ity of infusion 22:45: 22:01 1,000 mL, Dwayne as 1,000 mL 00 :00 IV Medical Infusion, Branch ONCE, 1 dose, On [place] 01/30/22 at 1645, SHAYNA magnesium 2021-03- No 2g 2 g, IV Univ ers sulfate in 04-01 Piggyback, it y of water 2 22:45: 22:00 Administer Dwayne as gram/50 mL 00 :00 over 60 Medica l (4 %) Minutes, Branch infusion 2 ONCE, 1 g dose, On [place] 01/30/22 at 1645, Routine lamoTRIgine 2021-03 Yes 100mg Take 100 U nivers (LAMICTAL) 1-24 mg by ity of 100 mg 18:07: mouth at [place] tablet [address] lamoTRIgine 2021-03 Yes 100mg Take 100 U nivers (LAMICTAL) 1-24 mg by ity of 100 mg 18:07: mouth at [place] tablet [address] lamoTRIgine 2021-03 Yes 100mg Take 100 U nivers (LAMICTAL) 1-24 mg by ity of 100 mg 18:07: mouth at [place] tablet [address] lamoTRIgine 2021-03 Yes 100mg Take 100 U nivers (LAMICTAL) 1-24 mg by ity of 100 mg 18:07: mouth at [place] tablet 27 bedtime. Medical 25 qA Branch lamoTRIgine 2021-03 Yes 100mg Take 100 U nivers (LAMICTAL) 1-24 mg by ity of 100 mg 18:07: mouth at [place] tablet 27 bedtime. Medical 25 qA Branch proMETHazin 2021-03 Yes [id number] 25mg Take 1 Univers e 25 mg 1-15 tablet by ity of tablet 00:00: mouth [place] 00 every 4 Medical (four) Branch hours as needed for Nausea and Vomiting (N/V). proMETHazin 2021-03 Yes [id number] 25mg Take 1 Univers e 25 mg 1-15 tablet by ity of tablet 00:00: mouth [place] 00 every 4 Medical (four) Branch hours as needed for Nausea and Vomiting (N/V). proMETHazin 2021-03 Yes [id number] 25mg Take 1 Univers e 25 mg 1-15 tablet by ity of tablet 00:00: mouth [place] 00 every 4 Medical (four) Branch hours as needed for Nausea and Vomiting (N/V). proMETHazin 2021-03 Yes [id number] 25mg Take 1 Univers e 25 mg 1-15 tablet by ity of tablet 00:00: mouth [place] 00 every 4 Medical (four) Branch hours as needed for Nausea and Vomiting (N/V). proMETHazin 2021-03 Yes [id number] 25mg Take 1 Univers e 25 mg 1-15 tablet by ity of tablet 00:00: mouth [place] 00 every 4 Medical (four) Branch hours as needed for Nausea and Vomiting (N/V). proMETHazin 2021-03 Yes [id number] 25mg Take 1 Univers e 25 mg 1-15 tablet by ity of tablet 00:00: mouth [place] 00 every 4 Medical (four) Branch hours as needed for Nausea and Vomiting (N/V). proMETHazin 2021-03 Yes [id number] 25mg Take 1 Univers e 25 mg 1-15 tablet by ity of tablet 00:00: mouth [place] 00 every 4 Medical (four) Branch hours as needed for Nausea and Vomiting (N/V). proMETHazin 2021-03 Yes [id number] 25mg Take 1 Univers e 25 mg 1-15 tablet by ity of tablet 00:00: mouth [place] 00 every 4 Medical (four) Branch hours as needed for Nausea and Vomiting (N/V). proMETHazin 2021-03 Yes [id number] 25mg Take 1 Univers e 25 mg 1-15 tablet by ity of tablet 00:00: mouth [place] 00 every 4 Medical (four) Branch hours as needed for Nausea and Vomiting (N/V). proMETHazin 2021-03- No [id number] 25mg Take 1 Univers e 25 mg 1-15 12-05 tablet by ity of tablet 00:00: 00:00 mouth [place] 00 :00 every 4 Medical (four) Branch hours as needed for Nausea and Vomiting (N/V). proMETHazin 2021-03- No [id number] 25mg Take 1 Univers e 25 mg 1-15 12-05 tablet by ity of tablet 00:00: 00:00 mouth [place] 00 :00 every 4 Medical (four) Branch hours as needed for Nausea and Vomiting (N/V). lamoTRIgine 2021-03 Yes [id number] 100mg Take 1 Univers (LAMICTAL) 1-10 tablet by ity of 100 mg 00:00: mouth at [place] tablet 00 bedtime. Medical Branch lamoTRIgine 2021-03 Yes [id number] 75mg Take 3 Univers 25 mg 1-10 tablets by ity of tablet 00:00: mouth [place] 00 every Medical morning. Branch lamoTRIgine 2021-03 Yes [id number] 100mg Take 1 Univers (LAMICTAL) 1-10 tablet by ity of 100 mg 00:00: mouth at [place] tablet 00 bedtime. Medical Branch lamoTRIgine 2021-03 Yes [id number] 75mg Take 3 Univers 25 mg 1-10 tablets by ity of tablet 00:00: mouth [place] 00 every Medical morning. Branch lamoTRIgine 2021-03 Yes [id number] 100mg Take 1 Univers (LAMICTAL) 1-10 tablet by ity of 100 mg 00:00: mouth at [place] tablet 00 bedtime. Medical Branch lamoTRIgine 2021-03 Yes [id number] 75mg Take 3 Univers 25 mg 1-10 tablets by ity of tablet 00:00: mouth [place] 00 every Medical morning. Branch lamoTRIgine 2021-03 Yes [id number] 100mg Take 1 Univers (LAMICTAL) 1-10 tablet by ity of 100 mg 00:00: mouth at [place] tablet 00 bedtime. Medical Branch lamoTRIgine 2021-03 Yes [id number] 75mg Take 3 Univers 25 mg 1-10 tablets by ity of tablet 00:00: mouth [place] 00 every Medical morning. Branch lamoTRIgine 2021-03 Yes [id number] 100mg Take 1 Univers (LAMICTAL) 1-10 tablet by ity of 100 mg 00:00: mouth at [place] tablet 00 bedtime. Medical Branch lamoTRIgine 2021-03 Yes [id number] 75mg Take 3 Univers 25 mg 1-10 tablets by ity of tablet 00:00: mouth [place] 00 every Medical morning. Branch lamoTRIgine 2021-03 Yes [id number] 100mg Take 1 Univers (LAMICTAL) 1-10 tablet by ity of 100 mg 00:00: mouth at [place] tablet 00 bedtime. [facility] Branch lamoTRIgine 2021-03 Yes [id number] 75mg Take 3 Univers 25 mg 1-10 tablets by ity of tablet 00:00: mouth [place] 00 every Medical morning. Branch lamoTRIgine 2021-03 Yes [id number] 100mg Take 1 Univers (LAMICTAL) 1-10 tablet by ity of 100 mg 00:00: mouth at [place] tablet 00 bedtime. [facility] Branch lamoTRIgine 2021-03 Yes [id number] 75mg Take 3 Univers 25 mg 1-10 tablets by ity of tablet 00:00: mouth [place] 00 every Medical morning. Branch lamoTRIgine 2021-03 Yes [id number] 100mg Take 1 Univers (LAMICTAL) 1-10 tablet by ity of 100 mg 00:00: mouth at [place] tablet 00 bedtime. Medical Branch lamoTRIgine 2021-03 Yes [id number] 75mg Take 3 Univers 25 mg 1-10 tablets by ity of tablet 00:00: mouth [place] 00 every Medical morning. Branch lamoTRIgine 2021-03 Yes [id number] 100mg Take 1 Univers (LAMICTAL) 1-10 tablet by ity of 100 mg 00:00: mouth at [place] tablet 00 bedtime. [facility] Branch lamoTRIgine 2021-03 Yes [id number] 75mg Take 3 Univers 25 mg 1-10 tablets by ity of tablet 00:00: mouth [place] 00 every Medical morning. Branch lamoTRIgine 2021-03 Yes [id number] 100mg Take 1 Univers (LAMICTAL) 1-10 tablet by ity of 100 mg 00:00: mouth at [place] tablet 00 bedtime. Medical Branch lamoTRIgine 2021-03 Yes [id number] 75mg Take 3 Univers 25 mg 1-10 tablets by ity of tablet 00:00: mouth [place] 00 every Medical morning. Branch lamoTRIgine 2021-03 Yes [id number] 100mg Take 1 Univers (LAMICTAL) 1-10 tablet by ity of 100 mg 00:00: mouth at [place] tablet 00 bedtime. Medical Branch lamoTRIgine 2021-03 Yes [id number] 75mg Take 3 Univers 25 mg 1-10 tablets by ity of tablet 00:00: mouth [place] 00 every Medical morning. Branch lamoTRIgine 2021-03 Yes [id number] 100mg Take 1 Univers (LAMICTAL) 1-10 tablet by ity of 100 mg 00:00: mouth at [place] tablet 00 bedtime. Medical Branch lamoTRIgine 2021-03 Yes [id number] 75mg Take 3 Univers 25 mg 1-10 tablets by ity of tablet 00:00: mouth [place] 00 every Medical morning. Branch lamoTRIgine 2021-03 Yes [id number] 100mg Take 1 Univers (LAMICTAL) 1-10 tablet by ity of 100 mg 00:00: mouth at [place] tablet 00 bedtime. Medical Branch lamoTRIgine 2021-03 Yes [id number] 75mg Take 3 Univers 25 mg 1-10 tablets by ity of tablet 00:00: mouth [place] 00 every Medical morning. Branch lamoTRIgine 2021-03 Yes [id number] 100mg Take 1 Univers (LAMICTAL) 1-10 tablet by ity of 100 mg 00:00: mouth at [place] tablet 00 bedtime. Medical Branch lamoTRIgine 2021-03 Yes [id number] 75mg Take 3 Univers 25 mg 1-10 tablets by ity of tablet 00:00: mouth [place] 00 every Medical morning. Branch lamoTRIgine 2021-03 Yes [id number] 100mg Take 1 Univers (LAMICTAL) 1-10 tablet by ity of 100 mg 00:00: mouth at [place] tablet 00 bedtime. Medical Branch lamoTRIgine 2021-03 Yes [id number] 75mg Take 3 Univers 25 mg 1-10 tablets by ity of tablet 00:00: mouth [place] 00 every Medical morning. Branch lamoTRIgine 2021-03 Yes [id number] 100mg Take 1 Univers (LAMICTAL) 1-10 tablet by ity of 100 mg 00:00: mouth at [place] tablet 00 bedtime. Medical Branch lamoTRIgine 2021-03 Yes [id number] 75mg Take 3 Univers 25 mg 1-10 tablets by ity of tablet 00:00: mouth [place] 00 every Medical morning. Branch lamoTRIgine 2021-03 Yes [id number] 100mg Take 1 Univers (LAMICTAL) 1-10 tablet by ity of 100 mg 00:00: mouth at [place] tablet 00 bedtime. Medical Branch lamoTRIgine 2021-03 Yes [id number] 75mg Take 3 Univers 25 mg 1-10 tablets by ity of tablet 00:00: mouth [place] 00 every Medical morning. Branch lamoTRIgine 2021-03 Yes [id number] 100mg Take 1 Univers (LAMICTAL) 1-10 tablet by ity of 100 mg 00:00: mouth at [place] tablet 00 bedtime. [facility] Branch lamoTRIgine 2021-03 Yes [id number] 75mg Take 3 Univers 25 mg 1-10 tablets by ity of tablet 00:00: mouth [place] 00 every Medical morning. Branch lamoTRIgine 2021-03 Yes [id number] 100mg Take 1 Univers (LAMICTAL) 1-10 tablet by ity of 100 mg 00:00: mouth at [place] tablet 00 bedtime. Medical Branch lamoTRIgine 2021-03 Yes [id number] 75mg Take 3 Univers 25 mg 1-10 tablets by ity of tablet 00:00: mouth [place] 00 every Medical morning. Branch lamoTRIgine 2021-03 Yes [id number] 100mg Take 1 Univers (LAMICTAL) 1-10 tablet by ity of 100 mg 00:00: mouth at [place] tablet 00 bedtime. Medical Branch lamoTRIgine 2021-03 Yes [id number] 75mg Take 3 Univers 25 mg 1-10 tablets by ity of tablet 00:00: mouth [place] 00 every Medical morning. Branch SELECT-OB + 2021-03 Yes Univer s [...] combo pack Branch SELECT-OB + 2021-03 Yes Unividris s DHA 29 mg 0-29 ity of [...] combo pack Branch SELECT-OB + 2021-03 Yes Unividris s DHA 29 mg 0-29 ity of [...] 00 Medical combo pack Branch SELECT-OB + 2021-03- No Unive rs DHA 29 mg 0-29 12-07 ity of iron-1 mg 00:00: 00:00 [place] -250 mg 00 :00 Medical combo pack Branch foLIC acid 2021-03- No [id number] 4mg Take 4 Univers 1 mg tablet 0-27 12-27 tablets by i ty of 00:00: 05:59 mouth in [place] 00 :00 the Medical morning Branch for 60 days. foLIC acid 2021-03- No [id number] 4mg Take 4 Univers 1 mg tablet 0-27 12-27 tablets by i ty of 00:00: 05:59 mouth in [place] 00 :00 the Medical morning Branch for 60 days. foLIC acid 2021-03- No [id number] 4mg Take 4 Univers 1 mg tablet 0-27 12-27 tablets by i ty of 00:00: 05:59 mouth in [place] 00 :00 the Medical morning Branch for 60 days. foLIC acid 2021-03- No [id number] 4mg Take 4 Univers 1 mg tablet 0-27 12-27 tablets by i ty of 00:00: 05:59 mouth in [place] 00 :00 the Medical morning Branch for 60 days. foLIC acid 2021-03- No [id number] 4mg Take 4 Univers 1 mg tablet 0-27 12-27 tablets by i ty of 00:00: 05:59 mouth in [place] 00 :00 the Medical morning Branch for 60 days. foLIC acid 2021-03- No [id number] 4mg Take 4 Univers 1 mg tablet 0-27 12-27 tablets by i ty of 00:00: 05:59 mouth in [place] 00 :00 the Medical morning Branch for 60 days. foLIC acid 2021-03- No [id number] 4mg Take 4 Univers 1 mg tablet 0-27 12-27 tablets by i ty of 00:00: 05:59 mouth in [place] 00 :00 the Medical morning Branch for 60 days. foLIC acid 2021-03- No [id number] 4mg Take 4 Univers 1 mg tablet 0-27 12-27 tablets by i ty of 00:00: 05:59 mouth in [place] 00 :00 the Medical morning Branch for 60 days. foLIC acid 2021-03- No [id number] 4mg Take 4 Univers 1 mg tablet 0-27 12-27 tablets by i ty of 00:00: 05:59 mouth in [place] 00 :00 the Medical morning Branch for 60 days. foLIC acid 2021-03- No [id number] 4mg Take 4 Univers 1 mg tablet 0-27 12-27 tablets by i ty of 00:00: 05:59 mouth in [place] 00 :00 the Medical morning Branch for 60 days. foLIC acid 2021-03- No [id number] 4mg Take 4 Univers 1 mg tablet 0-27 12-27 tablets by i ty of 00:00: 05:59 mouth in [place] 00 :00 the Medical morning Branch for 60 days. foLIC acid 2021-03- No [id number] 4mg Take 4 Univers 1 mg tablet 0-27 12-27 tablets by i ty of 00:00: 05:59 mouth in [place] 00 :00 the Medical morning Branch for 60 days. foLIC acid 2021-03- No [id number] 4mg Take 4 Univers 1 mg tablet 0-27 12-27 tablets by i ty of 00:00: 05:59 mouth in [place] 00 :00 the Medical morning Branch for 60 days. foLIC acid 2021-03- No [id number] 4mg Take 4 Univers 1 mg tablet 0-27 12-27 tablets by i ty of 00:00: 05:59 mouth in [place] 00 :00 the Medical morning Branch for 60 days. foLIC acid 2021-03- No [id number] 4mg Take 4 Univers 1 mg tablet 0-27 12-27 tablets by i ty of 00:00: 05:59 mouth in [place] 00 :00 the Medical morning Branch for 60 days. foLIC acid 2021-03- No [id number] 4mg Take 4 Univers 1 mg tablet 0-27 12-27 tablets by i ty of 00:00: 05:59 mouth in [place] 00 :00 the Medical morning Branch for 60 days. foLIC acid 2021-03- No [id number] 4mg Take 4 Univers 1 mg tablet 0-27 12-27 tablets by i ty of 00:00: 05:59 mouth in [place] 00 :00 the Medical morning Branch for 60 days. foLIC acid 2021-03- No [id number] 4mg Take 4 Univers 1 mg tablet 0-27 12-27 tablets by i ty of 00:00: 05:59 mouth in [place] 00 :00 the Medical morning Branch for 60 days. foLIC acid 2021-03- No [id number] 4mg Take 4 Univers 1 mg tablet 0-27 12-27 tablets by i ty of 00:00: 05:59 mouth in [place] 00 :00 the Medical morning Branch for 60 days. foLIC acid 2021-03- No [id number] 4mg Take 4 Univers 1 mg tablet 0-27 12-27 tablets by i ty of 00:00: 05:59 mouth in [place] 00 :00 the Medical morning Branch for 60 days. foLIC acid 2021-03- No [id number] 4mg Take 4 Univers 1 mg tablet 0-27 12-27 tablets by i ty of 00:00: 05:59 mouth in [place] 00 :00 the Medical morning Branch for 60 days. foLIC acid 2021-03- No [id number] 4mg Take 4 Univers 1 mg tablet 0-27 12-27 tablets by i ty of 00:00: 05:59 mouth in [place] 00 :00 the Medical morning Branch for 60 days. foLIC acid 2021-03- No [id number] 4mg Take 4 Univers 1 mg tablet 0-27 12-27 tablets by i ty of 00:00: 05:59 mouth in [place] 00 :00 the Medical morning Branch for 60 days. foLIC acid 2021-03- No [id number] 4mg Take 4 Univers 1 mg tablet 0-27 12-27 tablets by i ty of 00:00: 05:59 mouth in [place] 00 :00 the Medical morning Branch for 60 days. foLIC acid 2021-03- No [id number] 4mg Take 4 Univers 1 mg tablet 0-27 12-27 tablets by i ty of 00:00: 05:59 mouth in [place] 00 :00 the Medical morning Branch for 60 days. foLIC acid 2021-03- No [id number] 4mg Take 4 Univers 1 mg tablet 0-27 12-27 tablets by i ty of 00:00: 05:59 mouth in [place] 00 :00 the Medical morning Branch for 60 days. foLIC acid 2021-03- No [id number] 4mg Take 4 Univers 1 mg tablet 0-27 12-27 tablets by i ty of 00:00: 05:59 mouth in [place] 00 :00 the Medical morning Branch for 60 days. foLIC acid 2021-03- No [id number] 4mg Take 4 Univers 1 mg tablet 0-27 12-07 tablets by i ty of 00:00: 00:00 mouth in [place] 00 :00 the Medical [...] 2 ity of disintegrat 00:00: TABLETS BY [place] ing tablet 00 MOUTH ONCE Med ical DAILY IN Branch THE MORNING lamoTRIgine 2021-03 Yes CHEW AND Un aubree 25 mg 0-06 SWALLOW 2 ity of disintegrat 00:00: TABLETS BY [place] ing tablet 00 MOUTH ONCE Med ical DAILY IN [place] THE MORNING lamoTRIgine 2021-03 Yes CHEW AND Un aubree 25 mg 0-06 SWALLOW 2 ity of disintegrat 00:00: TABLETS BY [place] ing tablet 00 MOUTH ONCE Med ical DAILY IN [place] THE MORNING lamoTRIgine 2021-03 Yes CHEW AND Un aubree 25 mg 0-06 SWALLOW 2 ity of disintegrat 00:00: TABLETS BY [place] ing tablet 00 MOUTH ONCE Med ical DAILY IN [place] THE MORNING lamoTRIgine 2021-03 Yes CHEW AND Un [place] 25 mg 0-06 SWALLOW 2 ity of disintegrat 00:00: TABLETS BY [place] ing tablet 00 MOUTH ONCE Med ical DAILY IN [place] THE MORNING lamoTRIgine 2021-03 Yes CHEW AND Un [place] 25 mg 0-06 SWALLOW 2 ity of disintegrat 00:00: TABLETS BY [place] ing tablet 00 MOUTH ONCE Med ical DAILY IN [place] THE MORNING lamoTRIgine 2021-03 Yes CHEW AND Un [place] 25 mg 0-06 SWALLOW 2 ity of disintegrat 00:00: TABLETS BY [place] ing tablet 00 MOUTH ONCE Med ical DAILY IN [place] THE MORNING lamoTRIgine 2021-03 Yes CHEW AND Un [place] 25 mg 0-06 SWALLOW 2 ity of disintegrat 00:00: TABLETS BY [place] ing tablet 00 MOUTH ONCE Med ical DAILY IN [place] THE MORNING lamoTRIgine 2021-03 Yes CHEW AND Un [place] 25 mg 0-06 SWALLOW 2 ity of disintegrat 00:00: TABLETS BY [place] ing tablet 00 MOUTH ONCE Med ical DAILY IN [place] THE MORNING lamoTRIgine 2021-03 Yes CHEW AND Un [place] 25 mg 0-06 SWALLOW 2 ity of disintegrat 00:00: TABLETS BY [place] ing tablet 00 MOUTH ONCE Med ical DAILY IN [place] THE MORNING lamoTRIgine 2021-03 Yes CHEW AND Un a[place] 25 mg 0-06 SWALLOW 2 ity of disintegrat 00:00: TABLETS BY [place] ing tablet 00 MOUTH ONCE Med ical DAILY IN [place] THE MORNING lamoTRIgine 2021-03 Yes CHEW AND Un aubree 25 mg 0-06 SWALLOW 2 ity of disintegrat 00:00: TABLETS BY [place] ing tablet 00 MOUTH ONCE Med ical DAILY IN [place] THE MORNING lamoTRIgine 2021-03 Yes CHEW AND [...] ical DAILY IN Branch THE MORNING lamoTRIgine 2021-03- No CHEW AND U nivers 25 mg 0-06 12-05 SWALLOW 2 ity of disintegrat 00:00: 00:00 TABLETS BY [place] ing tablet 00 :00 MOUTH ONCE Med ical DAILY IN Branch THE MORNING lamoTRIgine 2021-03- No CHEW AND U nivers 25 mg 0-06 12-05 SWALLOW 2 ity of disintegrat 00:00: 00:00 TABLETS BY [place] ing tablet 00 :00 MOUTH ONCE Med ical DAILY IN Branch THE MORNING cyclobenzap 2021- No 10mg 10 mg, Uni vers rine 12-02 09-25 Oral, TID, ity of (FLEXERIL) 01:00: 21:40 1 dose, [place] as tablet 10 00 :00 First dose Medi tressa mg on Sun Branch 12/01/21 at 2000, Routine lamoTRIgine Yes 100mg Take 100 U nivers (LAMICTAL) 9-25 mg by ity of 100 mg 18:22: mouth at [place] tablet 12 bedtime. Medical 25 qAM Branch lamoTRIgine 2022-0 Yes 100mg Take 100 U nivers (LAMICTAL) 9-25 mg by ity of 100 mg 18:22: mouth at [place] tablet 12 bedtime. Medical [facility] lamoTRIgine Yes 100mg Take 100 U nivers (LAMICTAL) 9-25 mg by ity of 100 mg 18:22: mouth at [place] tablet 12 bedtime. Medical [facility] Branch lamoTRIgine 0 Yes 100mg Take 100 U nivers (LAMICTAL) 9-25 mg by ity of 100 mg 18:22: mouth at [place] tablet 12 bedtime. Medical [facility] Branch lamoTRIgine 0 Yes 100mg Take 100 U nivers (LAMICTAL) 9-25 mg by ity of 100 mg 18:22: mouth at [place] tablet 12 bedtime. Medical [facility] Branch lamoTRIgine Yes 100mg Take 100 U nivers (LAMICTAL) 9-25 mg by ity of 100 mg 18:22: mouth at [place] tablet 12 bedtime. Medical [facility] Branch lamoTRIgine Yes 100mg Take 100 U nivers (LAMICTAL) 9-25 mg by ity of 100 mg 18:22: mouth at [place] tablet 12 bedtime. Medical [facility] Branch lamoTRIgine Yes 100mg Take 100 U nivers (LAMICTAL) 9-25 mg by ity of 100 mg 18:22: mouth at [place] tablet 12 bedtime. Medical [facility] Branch lamoTRIgine Yes 100mg Take 100 U nivers (LAMICTAL) 9-25 mg by ity of 100 mg 18:22: mouth at [place] tablet 12 bedtime. Medical [facility] Branch lamoTRIgine Yes 100mg Take 100 U nivers (LAMICTAL) 9-25 mg by ity of 100 mg 18:22: mouth at [place] tablet 12 bedtime. Medical [facility] lamoTRIgine 0 Yes 100mg Take 100 U nivers (LAMICTAL) 9-25 mg by ity of 100 mg 18:22: mouth at [place] tablet 12 bedtime. Medical [facility] Branch lamoTRIgine 0 Yes 100mg Take 100 U nivers (LAMICTAL) 9-25 mg by ity of 100 mg 18:22: mouth at [place] tablet 12 bedtime. Medical [facility] lamoTRIgine Yes 100mg Take 100 U nivers (LAMICTAL) 9-25 mg by ity of 100 mg 18:22: mouth at [place] tablet 12 bedtime. Medical [facility] lamoTRIgine Yes 100mg Take 100 U nivers (LAMICTAL) 9-25 mg by ity of 100 mg 18:22: mouth at [place] tablet 12 bedtime. Medical [facility] lamoTRIgine 0 Yes 100mg Take 100 U nivers (LAMICTAL) 9-25 mg by ity of 100 mg 18:22: mouth at [place] tablet 12 bedtime. Medical [facility] lamoTRIgine Yes 100mg Take 100 U nivers (LAMICTAL) 9-25 mg by ity of 100 mg 18:22: mouth at [place] tablet 12 bedtime. [facility] Branch lamoTRIgine Yes 100mg Take 100 U nivers (LAMICTAL) 9-25 mg by ity of 100 mg 18:22: mouth at [place] tablet 12 bedtime. Medical [facility] lamoTRIgine Yes 100mg Take 100 U nivers (LAMICTAL) 9-25 mg by ity of 100 mg 18:22: mouth at [place] tablet 12 bedtime. Medical [facility] lamoTRIgine Yes 100mg Take 100 U nivers (LAMICTAL) 9-25 mg by ity of 100 mg 18:22: mouth at [place] tablet 12 bedtime. Medical [facility] lamoTRIgine Yes 100mg Take 100 U nivers (LAMICTAL) 9-25 mg by ity of 100 mg 18:22: mouth at [place] tablet 12 bedtime. Medical [facility] lamoTRIgine 0 Yes 100mg Take 100 U nivers (LAMICTAL) 9-25 mg by ity of 100 mg 18:22: mouth at [place] tablet 12 bedtime. Medical [facility] Branch lamoTRIgine Yes 100mg Take 100 U nivers (LAMICTAL) 9-25 mg by ity of 100 mg 18:22: mouth at [place] tablet 12 bedtime. Medical 25 qAM Branch lamoTRIgine 2022-0 Yes 100mg Take 100 U nivers (LAMICTAL) 9-25 mg by ity of 100 mg 18:22: mouth at [place] tablet [address] lamoTRIgine 2021-0 Yes 100mg Take 100 U nivers (LAMICTAL) 9-25 mg by ity of 100 mg 18:22: mouth at [place] tablet [address] lamoTRIgine 2021-0 Yes 100mg Take 100 U nivers (LAMICTAL) 9-25 mg by ity of 100 mg 18:22: mouth at [place] tablet [address] Branch lamoTRIgine 2021-0 Yes 100mg Take 100 U nivers (LAMICTAL) 9-25 mg by ity of 100 mg 18:22: mouth at [place] tablet [address] cyclobenzap 2021- No [id number] 10mg Take 1 Univers rine 10 mg 9-25 10-01 tablet by ity of tablet 00:00: 04:59 mouth in [place] 00 :00 the [facility] and 1 tablet at noon and 1 tablet in the evening. Do all this for 15 doses. cyclobenzap 2021- No [id number] 10mg Take 1 Univers rine 10 mg 9-25 10-01 tablet by ity of tablet 00:00: 04:59 mouth in [place] 00 :00 the [facility] and 1 tablet at noon and 1 tablet in the evening. Do all this for 15 doses. hydrOXYzine 0 Yes Univer s 25 mg/mL 9-16 ity of injection 00:00: [place] [facility] hydrOXYzine 2021-0 Yes Univer s 25 mg/mL 9-16 ity of injection 00:00: [place] [facility] hydrOXYzine 2021-0 Yes Univer s 25 mg/mL 9-16 ity of injection 00:00: [place] [facility] hydrOXYzine 2021-0 Yes Univer s 25 mg/mL 9-16 ity of injection 00:00: [place] [facility] hydrOXYzine 2021-0 Yes Univer s 25 mg/mL 9-16 ity of injection 00:00: [place] [facility] hydrOXYzine 2021-0 Yes Univer s 25 mg/mL 9-16 ity of injection 00:00: [place] 00 Medical Branch hydrOXYzine 2-0 Yes Univer s 25 mg/mL 9-16 ity of injection 00:00: [place] 00 Medical Branch hydrOXYzine 2-0 Yes Univer s 25 mg/mL 9-16 ity of injection 00:00: [place] [id number] Medical Branch hydrOXYzine 2-0 Yes Univer s 25 mg/mL 9-16 ity of injection 00:00: [place] 00 Medical Branch hydrOXYzine 2-0 Yes Univer s 25 mg/mL 9-16 ity of injection 00:00: [place] [address] Medical Branch hydrOXYzine 2-0 Yes Univer s 25 mg/mL 9-16 ity of injection 00:00: [place] [address] Medical Branch hydrOXYzine 2-0 Yes Univer s 25 mg/mL 9-16 ity of injection 00:00: [place] [address] Medical Branch hydrOXYzine 2-0 Yes Univer s 25 mg/mL 9-16 ity of injection 00:00: [place] [address] Medical Branch hydrOXYzine 2-0 Yes Univer s 25 mg/mL 9-16 ity of injection 00:00: [place] [address] Medical Branch hydrOXYzine 2-0 Yes Univer s 25 mg/mL 9-16 ity of injection 00:00: [place] [address] Medical Branch hydrOXYzine 2-0 Yes Univer s 25 mg/mL 9-16 ity of injection 00:00: [place] [address] Medical Branch hydrOXYzine 2-0 Yes Univer s 25 mg/mL 9-16 ity of injection 00:00: [place] [address] Medical Branch hydrOXYzine 2-0 Yes Univer s 25 mg/mL 9-16 ity of injection 00:00: [place] [address] Medical Branch hydrOXYzine 2-0 Yes Univer s 25 mg/mL 9-16 ity of injection 00:00: [place] [address] Medical Branch hydrOXYzine 2-0 Yes Univer s 25 mg/mL 9-16 ity of injection 00:00: [place] [address] Medical Branch hydrOXYzine 2-0 Yes Univer s 25 mg/mL 9-16 ity of injection 00:00: [place] [address] Medical Branch hydrOXYzine 2022-0 Yes Univer s 25 mg/mL 9-16 ity of injection 00:00: [place] 00 [facility] hydrOXYzine 2022-0 Yes Univer s 25 mg/mL 9-16 ity of injection 00:00: [place] 00 [facility] hydrOXYzine 2-0 Yes Univer s 25 mg/mL 9-16 ity of injection 00:00: [place] 00 [facility] hydrOXYzine 2-0 Yes Univer s 25 mg/mL 9-16 ity of injection 00:00: [place] 00 [facility] hydrOXYzine 2-0 2- No Unive rs 25 mg/mL 9-16 12-05 ity of injection 00:00: 00:00 [place] 00 :00 Medical Branch hydrOXYzine 2022-0 2- No Unive rs 25 mg/mL 9-16 12-05 ity of injection 00:00: 00:00 [place] 00 :00 Medical Branch hydrOXYzine 2-0 Yes Univer s 25 mg 9-13 ity of capsule 00:00: [place] 00 [facility] hydrOXYzine 2021-0 Yes Univer s 25 mg 9-13 ity of capsule 00:00: [place] 00 [facility] hydrOXYzine 2-0 Yes Univer s 25 mg 9-13 ity of capsule 00:00: [place] 00 [facility] hydrOXYzine 2-0 Yes Univer s 25 mg 9-13 ity of capsule 00:00: [place] 00 [facility] hydrOXYzine 2-0 2022- No Unive rs 25 mg 9-13 11-10 ity of capsule 00:00: 00:00 [place] 00 :00 Medical Branch hydrOXYzine 2022-0 2022- No Unive rs 25 mg 9-13 11-10 ity of capsule 00:00: 00:00 [place] 00 :00 [facility] Branch hydrOXYzine 2022-0 2022- No Unive rs 25 mg 9-13 11-10 ity of capsule 00:00: 00:00 [place] 00 :00 Medical Branch hydrOXYzine 2022-0 2022- No Unive rs 25 mg 9-13 11-10 ity of capsule 00:00: 00:00 [place] 00 :00 Medical Branch hydrOXYzine 2022-0 2022- No Unive rs 25 mg 9-13 11-10 ity of capsule 00:00: 00:00 [place] 00 :00 Medical Branch lamoTRIgine 2022-0 Yes 25mg Take 25 mg Univers 25 mg 9-12 by mouth ity of tablet 00:00: every [place] 00 morning. Medical Branch lamoTRIgine 2022-0 Yes 25mg Take 25 mg Univers 25 mg 9-12 by mouth ity of tablet 00:00: every [place] 00 morning. Medical Branch lamoTRIgine 2022-0 Yes 25mg Take 25 mg Univers 25 mg 9-12 by mouth ity of tablet 00:00: every [place] 00 morning. Medical Branch lamoTRIgine 2022-0 Yes 25mg Take 25 mg Univers 25 mg 9-12 by mouth ity of tablet 00:00: every [place] 00 morning. Medical Branch lamoTRIgine 2-0 2022- No 25mg Take 25 mg Univers 25 mg 9-12 11-10 by mouth ity of tablet 00:00: 00:00 every [place] 00 :00 morning. Medical Branch lamoTRIgine 2022-0 2022- No 25mg Take 25 mg Univers 25 mg 9-12 11-10 by mouth ity of tablet 00:00: 00:00 every [place] 00 :00 morning. [facility] Branch lamoTRIgine 2022-0 2022- No 25mg Take 25 mg Univers 25 mg 9-12 11-10 by mouth ity of tablet 00:00: 00:00 every [place] 00 :00 morning. Medical Branch lamoTRIgine 2-0 2022- No 25mg Take 25 mg Univers 25 mg 9-12 11-10 by mouth ity of tablet 00:00: 00:00 every [place] 00 :00 morning. [facility] Branch lamoTRIgine 2-0 2022- No 25mg Take 25 mg Univers 25 mg 9-12 11-10 by mouth ity of tablet 00:00: 00:00 every [place] 00 :00 morning. [facility] Branch lamoTRIgine 2-0 Yes 100mg Take 100 U nivers (LAMICTAL) 8-29 mg by ity of 100 mg 15:28: mouth at [place] tablet [address] Branch lamoTRIgine 2-0 Yes 100mg Take 100 U nivers (LAMICTAL) 8-29 mg by ity of 100 mg 15:28: mouth at [place] tablet [address] Branch lamoTRIgine 2-0 Yes 100mg Take 100 U nivers (LAMICTAL) 8-29 mg by ity of 100 mg 15:28: mouth at [place] tablet [address] Branch lamoTRIgine 0 Yes 100mg Take 100 U nivers (LAMICTAL) 8-29 mg by ity of 100 mg 15:28: mouth at [place] tablet 29 bedtime. [facility] lamoTRIgine 0 Yes 100mg Take 100 U nivers (LAMICTAL) 8-29 mg by ity of 100 mg 15:28: mouth at [place] tablet [address] Branch lamoTRIgine 0 Yes 100mg Take 100 U nivers (LAMICTAL) 8-29 mg by ity of 100 mg 15:28: mouth at [place] tablet [address] Branch lamoTRIgine 0 Yes 100mg Take 100 U nivers (LAMICTAL) 8-29 mg by ity of 100 mg 15:28: mouth at [place] tablet [address] Branch lamoTRIgine Yes 100mg Take 100 U nivers (LAMICTAL) 8-29 mg by ity of 100 mg 15:28: mouth at [place] tablet [address] lamoTRIgine Yes 100mg Take 100 U nivers (LAMICTAL) 8-29 mg by ity of 100 mg 15:28: mouth at [place] tablet [address] Branch lamoTRIgine Yes 100mg Take 100 U nivers (LAMICTAL) 8-29 mg by ity of 100 mg 15:28: mouth at [place] tablet [address] lamoTRIgine 0 Yes 100mg Take 100 U nivers (LAMICTAL) 8-29 mg by ity of 100 mg 15:28: mouth at [place] tablet [address] Branch lamoTRIgine 0 Yes 100mg Take 100 U nivers (LAMICTAL) 8-29 mg by ity of 100 mg 15:28: mouth at [place] tablet [address] Branch lamoTRIgine 0 Yes 100mg Take 100 U nivers (LAMICTAL) 8-29 mg by ity of 100 mg 15:28: mouth at [place] tablet [address] Branch lamoTRIgine Yes Univer s (LAMICTAL) 6-15 ity of [...] tablet 00 :00 Medical Branch lamoTRIgine 0 202- No Unive rs (LAMICTAL) 6-15 11-10 ity of 100 mg 00:00: 00:00 [place] tablet 00 :00 Medical Branch lamoTRIgine 0 2022- No Unive rs (LAMICTAL) 6-15 11-10 ity of 100 mg 00:00: 00:00 [place] tablet 00 :00 Medical Branch lamoTRIgine 0 2022- No Unive rs (LAMICTAL) 6-15 11-10 ity of 100 mg 00:00: 00:00 [place] tablet 00 :00 Medical Branch busPIRone 2021-0 Yes [id number] 18.75mg Take 2.5 Univers 7.5 mg 5-12 tablets by ity of tablet 00:00: mouth 3 (three) Medical times Branch daily. busPIRone 0 Yes [id number] 18.75mg Take 2.5 Univers 7.5 mg 5-12 tablets by ity of tablet 00:00: mouth 3 (three) Medical times Branch daily. busPIRone 0 Yes [id number] 18.75mg Take 2.5 Univers 7.5 mg 5-12 tablets by ity of tablet 00:00: mouth 3 (three) Medical times Branch daily. busPIRone 2022-0 Yes [id number] 18.75mg Take 2.5 Univers 7.5 mg 5-12 tablets by ity of tablet 00:00: mouth (three) Medical times Branch daily. busPIRone 2022-0 Yes [id number] 18.75mg Take 2.5 Univers 7.5 mg 5-12 tablets by ity of tablet 00:00: mouth (three) Medical times Branch daily. busPIRone 2022-0 Yes [id number] 18.75mg Take 2.5 Univers 7.5 mg 5-12 tablets by ity of tablet 00:00: mouth (three) Medical times Branch daily. busPIRone 2022-0 Yes [id number] 18.75mg Take 2.5 Univers 7.5 mg 5-12 tablets by ity of tablet 00:00: mouth (three) Medical times Branch daily. busPIRone 2022-0 Yes [id number] 18.75mg Take 2.5 Univers 7.5 mg 5-12 tablets by ity of tablet 00:00: mouth (three) Medical times Branch daily. busPIRone 2022-0 Yes [id number] 18.75mg Take 2.5 Univers 7.5 mg 5-12 tablets by ity of tablet 00:00: mouth (three) Medical times Branch daily. busPIRone 2022-0 Yes [id number] 18.75mg Take 2.5 Univers 7.5 mg 5-12 tablets by ity of tablet 00:00: mouth (three) Medical times Branch daily. busPIRone 2022-0 Yes [id number] 18.75mg Take 2.5 Univers 7.5 mg 5-12 tablets by ity of tablet 00:00: mouth (three) Medical times Branch daily. busPIRone 2022-0 Yes [id number] 18.75mg Take 2.5 Univers 7.5 mg 5-12 tablets by ity of tablet 00:00: mouth (three) Medical times Branch daily. busPIRone 2022-0 Yes [id number] 18.75mg Take 2.5 Univers 7.5 mg 5-12 tablets by ity of tablet 00:00: mouth (three) Medical times Branch daily. busPIRone 2022-0 Yes [id number] 18.75mg Take 2.5 Univers 7.5 mg 5-12 tablets by ity of tablet 00:00: mouth (three) Medical times Branch daily. busPIRone 2022-0 Yes [id number] 18.75mg Take 2.5 Univers 7.5 mg 5-12 tablets by ity of tablet 00:00: mouth (three) Medical times Branch daily. busPIRone 2022-0 Yes [id number] 18.75mg Take 2.5 Univers 7.5 mg 5-12 tablets by ity of tablet 00:00: mouth ([facility]) Medical times Branch daily. busPIRone 2022-0 Yes [id number] 18.75mg Take 2.5 Univers 7.5 mg 5-12 tablets by ity of tablet 00:00: mouth ([facility]) Medical times Branch daily. busPIRone 2022-0 Yes [id number] 18.75mg Take 2.5 Univers 7.5 mg 5-12 tablets by ity of tablet 00:00: mouth ([facility]) Medical times Branch daily. busPIRone 2022-0 Yes [id number] 18.75mg Take 2.5 Univers 7.5 mg 5-12 tablets by ity of tablet 00:00: mouth (three) Medical times Branch daily. busPIRone 2022-0 Yes [id number] 18.75mg Take 2.5 Univers 7.5 mg 5-12 tablets by ity of tablet 00:00: mouth ([facility]) Medical times Branch daily. busPIRone 2022-0 Yes [id number] 18.75mg Take 2.5 Univers 7.5 mg 5-12 tablets by ity of tablet 00:00: mouth (three) Medical times Branch daily. busPIRone 2022-0 Yes [id number] 18.75mg Take 2.5 Univers 7.5 mg 5-12 tablets by ity of tablet 00:00: mouth 3 (three) Medical times Branch daily. busPIRone 2022-0 Yes [id number] 18.75mg Take 2.5 Univers 7.5 mg 5-12 tablets by ity of tablet 00:00: mouth (three) Medical times Branch daily. busPIRone 2022-0 Yes [id number] 18.75mg Take 2.5 Univers 7.5 mg 5-12 tablets by ity of tablet 00:00: mouth (three) Medical times Branch daily. busPIRone 2022-0 Yes [id number] 18.75mg Take 2.5 Univers 7.5 mg 5-12 tablets by ity of tablet 00:00: mouth (three) Medical times Branch daily. busPIRone 2022-0 Yes [id number] 18.75mg Take 2.5 Univers 7.5 mg 5-12 tablets by ity of tablet 00:00: mouth (three) Medical times Branch daily. busPIRone 2022-0 Yes [id number] 18.75mg Take 2.5 Univers 7.5 mg 5-12 tablets by ity of tablet 00:00: mouth (three) Medical times Branch daily. busPIRone 2022-0 Yes [id number] 18.75mg Take 2.5 Univers 7.5 mg 5-12 tablets by ity of tablet 00:00: mouth (three) Medical times Branch daily. busPIRone 2022-0 Yes [id number] 18.75mg Take 2.5 Univers 7.5 mg 5-12 tablets by ity of tablet 00:00: mouth (three) Medical times Branch daily. busPIRone 2022-0 Yes [id number] 18.75mg Take 2.5 Univers 7.5 mg 5-12 tablets by ity of tablet 00:00: mouth (three) Medical times Branch daily. busPIRone 2022-0 Yes [id number] 18.75mg Take 2.5 Univers 7.5 mg 5-12 tablets by ity of tablet 00:00: mouth (three) Medical times Branch daily. busPIRone 2022-0 Yes [id number] 18.75mg Take 2.5 Univers 7.5 mg 5-12 tablets by ity of tablet 00:00: mouth (three) Medical times Branch daily. busPIRone 2022-0 Yes [id number] 18.75mg Take 2.5 Univers 7.5 mg 5-12 tablets by ity of tablet 00:00: mouth (three) Medical times Branch daily. busPIRone 2022-0 Yes [id number] 18.75mg Take 2.5 Univers 7.5 mg 5-12 tablets by ity of tablet 00:00: mouth (three) Medical times Branch daily. busPIRone 2022-0 Yes [id number] 18.75mg Take 2.5 Univers 7.5 mg 5-12 tablets by ity of tablet 00:00: mouth (three) Medical times Branch daily. busPIRone 2022-0 Yes [id number] 18.75mg Take 2.5 Univers 7.5 mg 5-12 tablets by ity of tablet 00:00: mouth (three) Medical times Branch daily. busPIRone 2022-0 Yes [id number] 18.75mg Take 2.5 Univers 7.5 mg 5-12 tablets by ity of tablet 00:00: mouth (three) Medical times Branch daily. busPIRone 2022-0 Yes [id number] 18.75mg Take 2.5 Univers 7.5 mg 5-12 tablets by ity of tablet 00:00: mouth (three) Medical times Branch daily. busPIRone 2022-0 Yes [id number] 18.75mg Take 2.5 Univers 7.5 mg 5-12 tablets by ity of tablet 00:00: mouth (three) Medical times Branch daily. busPIRone 2022-0 Yes [id number] 18.75mg Take 2.5 Univers 7.5 mg 5-12 tablets by ity of tablet 00:00: mouth (three) Medical times Branch daily. busPIRone 2022-0 Yes [id number] 18.75mg Take 2.5 Univers 7.5 mg 5-12 tablets by ity of tablet 00:00: mouth (three) Medical times Branch daily. busPIRone 2022-0 Yes [id number] 18.75mg Take 2.5 Univers 7.5 mg 5-12 tablets by ity of tablet 00:00: mouth (three) Medical times Branch daily. busPIRone 2022-0 Yes [id number] 18.75mg Take 2.5 Univers 7.5 mg 5-12 tablets by ity of tablet 00:00: mouth 3 [place] 00 (three) Medical times Branch daily. busPIRone Yes [id number] 18.75mg Take 2.5 Univers 7.5 mg 5-12 tablets by ity of tablet 00:00: mouth 3 [place] 00 (three) Medical times Branch daily. busPIRone Yes [id number] 18.75mg Take 2.5 Univers 7.5 mg 5-12 tablets by ity of tablet 00:00: mouth 3 [place] 00 (three) Medical times Branch daily. busPIRone 2021- No [id number] 18.75mg Take 2.5 Univers 7.5 mg 5-12 12-05 tablets by ity of tablet 00:00: 00:00 mouth 3 [place] 00 :00 (three) Medical times Branch daily. busPIRone 2021- No [id number] 18.75mg Take 2.5 Univers 7.5 mg 5-12 12-05 tablets by ity of tablet 00:00: 00:00 mouth 3 [place] 00 :00 (three) Medical times Branch daily. Yes [id number] 1{tbl} Take 1 U nivers multivitami 5-05 tablet by ity of n ( 00:00: mouth [place] VITAMIN) 00 daily. Medical tablet Branch Yes [id number] 1{tbl} Take 1 U nivers multivitami 5-05 tablet by ity of n ( 00:00: mouth [place] VITAMIN) 00 daily. Medical tablet Branch Yes [id number] 1{tbl} Take 1 U nivers multivitami 5-05 tablet by ity of n ( 00:00: mouth [place] VITAMIN) 00 daily. Medical tablet Branch Yes [id number] 1{tbl} Take 1 U nivers multivitami 5-05 tablet by ity of n ( 00:00: mouth [place] VITAMIN) 00 daily. Medical tablet Branch Yes [id number] 1{tbl} Take 1 U nivers multivitami 5-05 tablet by ity of n ( 00:00: mouth [place] VITAMIN) 00 daily. Medical tablet Branch Yes [id number] 1{tbl} Take 1 U nivers multivitami 5-05 tablet by ity of n ( 00:00: mouth [place] VITAMIN) 00 daily. Medical tablet Branch Yes [id number] 1{tbl} Take 1 U nivers multivitami 5-05 tablet by ity of n ( 00:00: mouth [place] VITAMIN) 00 daily. Medical tablet Branch Yes [id number] 1{tbl} Take 1 U nivers multivitami 5-05 tablet by ity of n ( 00:00: mouth [place] VITAMIN) 00 daily. Medical tablet Branch Yes [id number] 1{tbl} Take 1 U nivers multivitami 5-05 tablet by ity of n ( 00:00: mouth [place] VITAMIN) 00 daily. Medical tablet Branch Yes [id number] 1{tbl} Take 1 U nivers multivitami 5-05 tablet by ity of n ( 00:00: mouth [place] VITAMIN) 00 daily. Medical tablet Branch Yes [id number] 1{tbl} Take 1 U nivers multivitami 5-05 tablet by ity of n ( 00:00: mouth [place] VITAMIN) 00 daily. Medical tablet Branch Yes [id number] 1{tbl} Take 1 U nivers multivitami 5-05 tablet by ity of n ( 00:00: mouth [place] VITAMIN) 00 daily. Medical tablet Branch Yes [id number] 1{tbl} Take 1 U nivers multivitami 5-05 tablet by ity of n ( 00:00: mouth [place] VITAMIN) 00 daily. Medical tablet Branch Yes [id number] 1{tbl} Take 1 U nivers multivitami 5-05 tablet by ity of n ( 00:00: mouth [place] VITAMIN) 00 daily. Medical tablet Branch Yes [id number] 1{tbl} Take 1 U nivers multivitami 5-05 tablet by ity of n ( 00:00: mouth [place] VITAMIN) 00 daily. Medical tablet Branch Yes [id number] 1{tbl} Take 1 U nivers multivitami 5-05 tablet by ity of n ( 00:00: mouth [place] VITAMIN) 00 daily. Medical tablet Branch Yes [id number] 1{tbl} Take 1 U nivers multivitami 5-05 tablet by ity of n ( 00:00: mouth [place] VITAMIN) 00 daily. Medical tablet Branch Yes [id number] 1{tbl} Take 1 U nivers multivitami 5-05 tablet by ity of n ( 00:00: mouth [place] VITAMIN) 00 daily. Medical tablet Branch Yes [id number] 1{tbl} Take 1 U nivers multivitami 5-05 tablet by ity of n ( 00:00: mouth [place] VITAMIN) 00 daily. Medical tablet Branch Yes [id number] 1{tbl} Take 1 U nivers multivitami 5-05 tablet by ity of n ( 00:00: mouth [place] VITAMIN) 00 daily. Medical tablet Branch Yes [id number] 1{tbl} Take 1 U nivers multivitami 5-05 tablet by ity of n ( 00:00: mouth [place] VITAMIN) 00 daily. Medical tablet Branch Yes [id number] 1{tbl} Take 1 U nivers multivitami 5-05 tablet by ity of n ( 00:00: mouth [place] VITAMIN) 00 daily. Medical tablet Branch Yes [id number] 1{tbl} Take 1 U nivers multivitami 5-05 tablet by ity of n ( 00:00: mouth [place] VITAMIN) 00 daily. Medical tablet Branch Yes [id number] 1{tbl} Take 1 U nivers multivitami 5-05 tablet by ity of n ( 00:00: mouth [place] VITAMIN) 00 daily. Medical tablet Branch Yes [id number] 1{tbl} Take 1 U nivers multivitami 5-05 tablet by ity of n ( 00:00: mouth [place] VITAMIN) 00 daily. Medical tablet Branch Yes [id number] 1{tbl} Take 1 U nivers multivitami 5-05 tablet by ity of n ( 00:00: mouth [place] VITAMIN) 00 daily. Medical tablet Branch Yes [id number] 1{tbl} Take 1 U nivers multivitami 5-05 tablet by ity of n ( 00:00: mouth [place] VITAMIN) 00 daily. Medical tablet Branch Yes [id number] 1{tbl} Take 1 U nivers multivitami 5-05 tablet by ity of n ( 00:00: mouth [place] VITAMIN) 00 daily. Medical tablet Branch Yes [id number] 1{tbl} Take 1 U nivers multivitami 5-05 tablet by ity of n ( 00:00: mouth [place] VITAMIN) 00 daily. Medical tablet Branch Yes [id number] 1{tbl} Take 1 U nivers multivitami 5-05 tablet by ity of n ( 00:00: mouth [place] VITAMIN) 00 daily. Medical tablet Branch Yes [id number] 1{tbl} Take 1 U nivers multivitami 5-05 tablet by ity of n ( 00:00: mouth [place] VITAMIN) 00 daily. Medical tablet Branch Yes [id number] 1{tbl} Take 1 U nivers multivitami 5-05 tablet by ity of n ( 00:00: mouth [place] VITAMIN) 00 daily. Medical tablet Branch Yes [id number] 1{tbl} Take 1 U nivers multivitami 5-05 tablet by ity of n ( 00:00: mouth [place] VITAMIN) 00 daily. Medical tablet Branch Yes [id number] 1{tbl} Take 1 U nivers multivitami 5-05 tablet by ity of n ( 00:00: mouth [place] VITAMIN) 00 daily. Medical tablet Branch Yes [id number] 1{tbl} Take 1 U nivers multivitami 5-05 tablet by ity of n ( 00:00: mouth [place] VITAMIN) 00 daily. Medical tablet Branch Yes [id number] 1{tbl} Take 1 U nivers multivitami 5-05 tablet by ity of n ( 00:00: mouth [place] VITAMIN) 00 daily. Medical tablet Branch Yes [id number] 1{tbl} Take 1 U nivers multivitami 5-05 tablet by ity of n ( 00:00: mouth [place] VITAMIN) 00 daily. Medical tablet Branch Yes [id number] 1{tbl} Take 1 U nivers multivitami 5-05 tablet by ity of n ( 00:00: mouth [place] VITAMIN) 00 daily. Medical tablet Branch Yes [id number] 1{tbl} Take 1 U nivers multivitami 5-05 tablet by ity of n ( 00:00: mouth [place] VITAMIN) 00 daily. Medical tablet Branch Yes [id number] 1{tbl} Take 1 U nivers multivitami 5-05 tablet by ity of n ( 00:00: mouth [place] VITAMIN) 00 daily. Medical tablet Branch Yes [id number] 1{tbl} Take 1 U nivers multivitami 5-05 tablet by ity of n ( 00:00: mouth [place] VITAMIN) 00 daily. Medical tablet Branch Yes [id number] 1{tbl} Take 1 U nivers multivitami 5-05 tablet by ity of n ( 00:00: mouth [place] VITAMIN) 00 daily. Medical tablet Branch Yes [id number] 1{tbl} Take 1 U nivers multivitami 5-05 tablet by ity of n ( 00:00: mouth [place] VITAMIN) 00 daily. Medical tablet Branch Yes [id number] 1{tbl} Take 1 U nivers multivitami 5-05 tablet by ity of n ( 00:00: mouth [place] VITAMIN) 00 daily. Medical tablet Branch Yes [id number] 1{tbl} Take 1 U nivers multivitami 5-05 tablet by ity of n ( 00:00: mouth [place] VITAMIN) 00 daily. Medical tablet Branch Yes [id number] 1{tbl} Take 1 U nivers multivitami 5-05 tablet by ity of n ( 00:00: mouth [place] VITAMIN) 00 daily. Medical tablet Branch Yes [id number] 1{tbl} Take 1 U nivers multivitami 5-05 tablet by ity of n ( 00:00: mouth [place] VITAMIN) 00 daily. Medical tablet Branch 2021- No [id number] 1{tbl} Take 1 [facility] multivitami 5-05 12-07 tablet by it y of n ( 00:00: [place] 00 :00 daily. Medical tablet Branch lithium 600 1-0 Yes bipolar 600mg QD Take [address] [facility] MG capsule 7-19 disorder in mg by [facility] 17:56: remission mouth Medical 35 every Center morning . busPIRone 2021-0 Yes 10mg Q.5D Take [address] [facility] (BUSPAR) 10 7-19 by mouth 2 [place] [facility] tablet 17:56: (two) Medical 35 times Center daily. lithium 600 1-0 Yes bipolar 600mg QD Take [address] [facility] MG capsule 7-19 disorder in mg by [facility] 17:56: remission mouth Medical 35 every Center morning . busPIRone 2021-0 Yes 10mg Q.5D Take [address] [facility] [address] [facility] (BUSPAR) 10 7-19 by mouth 2 [place] MG tablet 17:56: (two) Medical 35 times Center daily. lithium 600 1-0 Yes bipolar 600mg QD Take [address] [facility] MG capsule 7-19 disorder in mg by L [facility] 17:56: remission mouth Medical 35 every Center morning . busPIRone 1-0 Yes 10mg Q.5D Take [address] [facility] [address] [facility] (BUSPAR) 10 7-19 by mouth 2 [place] MG tablet 17:56: (two) Medical 35 times Center daily. lithium 600 1-0 Yes bipolar 600mg QD Take [address] [facility] MG capsule 7-19 disorder in mg by L [facility] 17:56: remission mouth Medical 35 every Center morning . busPIRone 1-0 Yes 10mg Q.5D Take [address] [facility] [address] [facility] (BUSPAR) 10 7-19 by mouth 2 [place] MG tablet 17:56: (two) Medical 35 times Center daily. lithium 300 1-0 Yes bipolar 900mg QD Take [address] [facility] MG capsule 7-15 disorder in mg by [facility] 00:00: remission mouth Medical 00 nightly. [place] lithium 300 1-0 Yes bipolar 900mg QD Take [address] [facility] MG capsule 7-15 disorder in mg by [facility] 00:00: remission mouth Medical 00 nightly. Center lithium 300 1-0 Yes bipolar 900mg QD Take [address] [facility] MG capsule 7-15 disorder in mg by [facility] 00:00: remission mouth Medical 00 nightly. Center lithium 300 0 Yes bipolar 900mg QD Take [address] [facility] MG capsule 7-15 disorder in mg by L [facility] 00:00: remission mouth Medical 00 nightly. Center Immunizations Ordered Filled Immunization Date Status Comments [facility] e Immunization Name Name Rho (d) Immune 2022-02-12 Completed [facility] 00:00:00 [facility] Rho (d) Immune 2022-02-12 Completed [facility] 00:00:00 [facility] [place] [facility] Rho (d) Immune 2022-02-12 Completed [facility] 00:00:00 [facility] [place] [facility] Rho (d) Immune 2022-02-12 Completed [facility] Gl[facility] 00:00:00 [facility] [place] [facility] Rho (d) Immune 2022-02-12 Completed [facility] 00:00:00 [facility] [place] [facility] Rho (d) Immune 2022-02-12 Completed [facility] Gl[facility] 00:00:00 [facility] Rho (d) Immune 2022-02-12 Completed [facility] Gl[facility]ulin 00:00:00 [facility] Rho (d) Immune 2022-01-02 Completed [facility] Gl[facility] 00:00:00 [facility] [place] [facility] Rho (d) Immune 2022-01-02 Completed [facility] Gl[facility]ulin 00:00:00 [facility] Rho (d) Immune 2022-01-02 Completed [facility] Gl[facility]ulin 00:00:00 [facility] Rho (d) Immune 2022-01-02 Completed [facility] Gl[facility]ulin 00:00:00 [facility] [place] [facility] Rho (d) Immune 2022-01-02 Completed [facility] Gl[facility]ulin 00:00:00 [facility] Rho (d) Immune 2022-01-02 Completed [facility] Globulin 00:00:00 [facility] Rho (d) Immune 2022-01-02 Completed [facility] Globulin 00:00:00 [facility] Rho (d) Immune 2022-01-02 Completed [facility] Gl[facility]ulin 00:00:00 [facility] [place] [facility] Rho (d) Immune 2022-01-02 Completed [facility] Gl[facility]ulin 00:00:00 [facility] Rho (d) Immune 2022-01-02 Completed [facility] Gl[facility]ulin 00:00:00 [facility] Rho (d) Immune 2022-01-02 Completed [facility] Gl[facility]ulin 00:00:00 [facility] [place] [facility] Rho (d) Immune 2022-01-02 Completed [facility] Gl[facility]ulin 00:00:00 [facility] Rho (d) Immune 2022-01-02 Completed [facility] Globulin 00:00:00 [facility] Rho (d) Immune 2022-01-02 Completed [facility] Globulin 00:00:00 [facility] [place] [facility] Rho (d) Immune 2022-01-02 Completed [facility] Gl[facility]ulin 00:00:00 [facility] Rho (d) Immune 2022-01-02 Completed [facility] Gl[facility]ulin 00:00:00 [facility] Rho (d) Immune 2022-01-02 Completed [facility] Gl[facility]ulin 00:00:00 [facility] Rho (d) Immune 2022-01-02 Completed [facility] Globulin 00:00:00 [facility] Rho (d) Immune 2022-01-02 Completed [facility] Globulin 00:00:00 [facility] Rho (d) Immune 2022-01-02 Completed [facility] Globulin 00:00:00 [facility] Rho (d) Immune 2022-01-02 Completed [facility] Gl[facility]ulin 00:00:00 [facility] [place] [facility] [facility] Rho (d) Immune 2022-01-02 Completed [facility] Globulin 00:00:00 [facility] Rho (d) Immune 2022-01-02 Completed [facility] Globulin 00:00:00 [facility] Rho (d) Immune 2022-01-02 Completed [facility] Globulin 00:00:00 [facility] Rho (d) Immune 2022-01-02 Completed [facility] Globulin 00:00:00 [facility] Rho (d) Immune 2022-01-02 Completed [facility] Globulin 00:00:00 [facility] Rho (d) Immune 2022-01-02 Completed [facility] Globulin 00:00:00 [facility] Rho (d) Immune 2022-01-02 Completed [facility] Globulin 00:00:00 [facility] Rho (d) Immune 2022-01-02 Completed [facility] Globulin 00:00:00 [facility] Rho (d) Immune 2022-01-02 Completed [facility] Globulin 00:00:00 [facility] Rho (d) Immune 2022-01-02 Completed [facility] Globulin 00:00:00 [facility] Rho (d) Immune 2022-01-02 Completed [facility] Globulin 00:00:00 [facility] Rho (d) Immune 2022-01-02 Completed [facility] Globulin 00:00:00 [facility] Rho (d) Immune 2022-01-02 Completed [facility] Globulin 00:00:00 [facility] Rho (d) Immune 2022-01-02 Completed [facility] Globulin 00:00:00 [facility] TDAP 2021-12-17 Completed [facility] 00:00:00 [facility] TDAP 2021-12-17 Completed [facility] 00:00:00 [facility] TDAP 2021-12-17 Completed [facility] 00:00:00 [facility] TDAP 2021-12-17 Completed [facility] 00:00:00 [facility] TDAP 2021-12-17 Completed [facility] 00[facility]00:00 [facility] TDAP 2021-12-17 Completed [facility] 00:00:00 [facility] TDAP 2021-12-17 Completed [facility] 00:00:00 [facility] TDAP 2021-12-17 Completed [facility] 00:00:00 [facility] TDAP 2021-12-17 Completed [facility] 00:00:00 [facility] TDAP 2021-12-17 Completed [facility] 00:00:00 [facility] TDAP 2021-12-17 Completed [facility] 00:00:00 [facility] TDAP 2021-12-17 Completed [facility] 00:00:00 [facility] TDAP 2021-12-17 Completed [facility] 00:00:00 [facility] TDAP 2021-12-17 Completed [facility] 00:00:00 [facility] TDAP 2021-12-17 Completed [facility] 00[facility]00:00 [facility] TDAP 2021-12-17 Completed [facility] 00:00:00 [facility] TDAP 2021-12-17 Completed [facility] 00:00:00 [facility] TDAP 2021-12-17 Completed [facility] 00:00:00 [facility] TDAP 2021-12-17 Completed [facility] 00:00:00 [facility] TDAP 2021-12-17 Completed [facility] 00:00:00 [facility] TDAP 2021-12-17 Completed [facility] 00:00:00 [facility] TDAP 2021-12-17 Completed [facility] 00:00:00 [facility] TDAP 2021-12-17 Completed [facility] 00:00:00 [facility] TDAP 2021-12-17 Completed [facility] 00[facility]00:00 [facility] TDAP 2021-12-17 Completed [facility] 00:00:00 [facility] TDAP 2021-12-17 Completed [facility] 00:00:00 [facility] TDAP 2021-12-17 Completed [facility] 00:00:00 [facility] TDAP 2021-12-17 Completed [facility] 00:00:00 [facility] TDAP 2021-12-17 Completed [facility] 00:00:00 [facility] TDAP 2021-12-17 Completed [facility] 00:00:00 [facility] TDAP 2021-12-17 Completed [facility] 00:00:00 [facility] TDAP 2021-12-17 Completed [facility] 00:00:00 [facility] TDAP 2021-12-17 Completed [facility] 00:00:00 [facility] TDAP 2021-12-17 Completed [facility] 00:00:00 [facility] TDAP 2021-12-17 Completed [facility] 00:00:00 [facility] TDAP 2021-12-17 Completed [facility] 00:00:00 [facility] TDAP 2021-12-17 Completed [facility] 00:00:00 [facility] TDAP 2021-12-17 Completed [facility] 00:00:00 [facility] HPV9 2019-12-30 Completed [facility] 00:00:00 [facility] HPV9 2019-12-30 Completed [facility] 00:00:00 [facility] HPV9 2019-12-30 Completed [facility] 00:00:00 [facility] HPV9 2019-12-30 Completed [facility] 00:00:00 [facility] HPV9 2019-12-30 Completed [facility] 00:00:00 [facility] HPV9 2019-12-30 Completed [facility] 00:00:00 [facility] HPV9 2019-12-30 Completed [facility] 00:00:00 [facility] HPV9 2019-12-30 Completed [facility] 00:00:00 [facility] HPV9 2019-12-30 Completed [facility] 00:00:00 [facility] HPV9 2019-12-30 Completed [facility] 00:00:00 [facility] HPV9 2019-12-30 Completed [facility] 00:00:00 [facility] HPV9 2019-12-30 Completed [facility] 00:00:00 [facility] HPV9 2019-12-30 Completed [facility] 00:00:00 [facility] HPV9 2019-12-30 Completed [facility] 00:00:00 [facility] HPV9 2019-12-30 Completed [facility] [...] Branch HPV9 2019-12-30 Completed [facility] 00:00:00 [facility] HPV9 2019-12-30 Completed [facility] 00:00:00 [facility] HPV9 2019-12-30 Completed [facility] 00:00:00 [facility] HPV9 2019-12-30 Completed [facility] 00:00:00 [facility] HPV9 2019-12-30 Completed [facility] 00:00:00 [facility] HPV9 2019-12-30 Completed [facility] 00:00:00 [facility] HPV9 2019-12-30 Completed [facility] 00:00:00 [facility] HPV9 2019-12-30 Completed [facility] 00:00:00 [facility] HPV9 2019-12-30 Completed [facility] 00:00:00 [facility] HPV9 2019-12-30 Completed [facility] 00:00:00 [facility] HPV9 2019-12-30 Completed [facility] 00:00:00 [facility] HPV9 2019-12-30 Completed [facility] 00:00:00 [facility] HPV9 2019-12-30 Completed [facility] 00:00:00 [facility] HPV9 2019-09-27 Completed [facility] 00:00:00 [facility] HPV9 2019-09-27 Completed [facility] 00:00:00 [facility] HPV9 2019-09-27 Completed [facility] 00:00:00 [facility] HPV9 2019-09-27 Completed [facility] 00:00:00 [facility] HPV9 2019-09-27 Completed [facility] 00:00:00 [facility] HPV9 2019-09-27 Completed [facility] [...] Branch HPV9 2019-09-27 Completed [facility] 00:00:00 [facility] HPV9 2019-09-27 Completed [facility] 00:00:00 [facility] HPV9 2019-09-27 Completed [facility] 00:00:00 [facility] HPV9 2019-09-27 Completed [facility] 00:00:00 [facility] HPV9 2019-09-27 Completed [facility] 00:00:00 [facility] HPV9 2019-09-27 Completed [facility] 00:00:00 [facility] HPV9 2019-09-27 Completed [facility] 00:00:00 [facility] HPV9 2019-09-27 Completed [facility] 00:00:00 [facility] HPV9 2019-09-27 Completed [facility] 00:00:00 [facility] HPV9 2019-09-27 Completed [facility] 00:00:00 [facility] HPV9 2019-09-27 Completed [facility] 00:00:00 [facility] HPV9 2019-09-27 Completed [facility] 00:00:00 [facility] HPV9 2019-09-27 Completed [facility] 00:00:00 [facility] HPV9 2019-09-27 Completed [facility] 00:00:00 [facility] HPV9 2019-09-27 Completed [facility] 00:00:00 [facility] HPV9 2019-09-27 Completed [facility] 00:00:00 [facility] HPV9 2019-09-27 Completed [facility] 00:00:00 [facility] HPV9 2019-09-27 Completed [facility] 00:00:00 [facility] HPV9 2019-09-27 Completed [facility] 00:00:00 [facility] HPV9 2019-09-27 Completed [facility] 00:00:00 [facility] HPV9 2019-09-27 Completed [facility] 00:00:00 [facility] HPV9 2019-09-27 Completed [facility] 00:00:00 [facility] HPV9 2019-09-27 Completed [facility] 00:00:00 [facility] HPV9 2019-09-27 Completed [facility] 00:00:00 [facility] HPV9 2019-09-27 Completed [facility] 00:00:00 [facility] HPV9 2019-09-27 Completed [facility] 00:00:00 [facility] HPV9 2019-09-27 Completed [facility] 00:00:00 [facility] HPV9 2019-09-27 Completed [facility] 00:00:00 [facility] HPV9 2019-09-27 Completed [facility] 00:00:00 [facility] HPV9 2019-09-27 Completed [facility] 00:00:00 [facility] HPV9 2019-09-27 Completed [facility] 00:00:00 [facility] HPV9 2019-09-27 Completed [facility] 00:00:00 [facility] HPV9 2019-09-27 Completed [facility] 00:00:00 [facility] HPV9 2019-09-27 Completed [facility] 00:00:00 [facility] HPV9 2019-09-27 Completed [facility] 00:00:00 [facility] HPV9 2019-09-27 Completed [facility] 00:00:00 [facility] HPV9 2019-09-27 Completed [facility] 00:00:00 [facility] HPV9 2019-09-27 Completed [facility] 00:00:00 [facility] HPV9 2019-09-27 Completed [facility] 00:00:00 [facility] HPV9 2019-09-27 Completed [facility] 00:00:00 [facility] HPV9 2019-09-27 Completed [facility] 00:00:00 [facility] HPV9 2019-09-27 Completed [facility] 00:00:00 [facility] HPV9 2019-09-27 Completed [facility] 00:00:00 [facility] HPV9 2019-05-17 Completed [facility] [...] Branch HPV9 2019-05-17 Completed [facility] 00:00:00 [facility] HPV9 2019-05-17 Completed [facility] 00:00:00 [facility] HPV9 2019-05-17 Completed [facility] 00:00:00 [facility] HPV9 2019-05-17 Completed [facility] 00:00:00 [facility] HPV9 2019-05-17 Completed [facility] 00:00:00 [facility] HPV9 2019-05-17 Completed [facility] 00:00:00 [facility] HPV9 2019-05-17 Completed [facility] 00:00:00 [facility] HPV9 2019-05-17 Completed [facility] 00:00:00 [facility] HPV9 2019-05-17 Completed [facility] 00:00:00 [facility] HPV9 2019-05-17 Completed [facility] 00:00:00 [facility] HPV9 2019-05-17 Completed [facility] 00:00:00 [facility] HPV9 2019-05-17 Completed [facility] 00:00:00 [facility] TDAP (ADACEL) 2018-02-15 Completed [facility] VACCINE 00:00:00 [facility] TDAP (ADACEL) 2018-02-15 Completed [facility] VACCINE 00:00:00 [facility] TDAP (ADACEL) 2018-02-15 Completed [facility] VACCINE 00:00:00 [facility] TDAP (ADACEL) 2018-02-15 Completed [facility] VACCINE 00:00:00 [facility] TDAP (ADACEL) 2018-02-15 Completed [facility] VACCINE 00:00:00 [facility] TDAP (ADACEL) 2018-02-15 Completed [facility] VACCINE 00:00:00 [facility] TDAP (ADACEL) 2018-02-15 Completed [facility] VACCINE 00:00:00 [facility] TDAP (ADACEL) 2018-02-15 Completed [facility] VACCINE 00:00:00 [facility] TDAP (ADACEL) 2018-02-15 Completed [facility] VACCINE 00:00:00 [facility] TDAP (ADACEL) 2018-02-15 Completed [facility] VACCINE 00:00:00 [facility] TDAP (ADACEL) 2018-02-15 Completed [facility] VACCINE 00:00:00 [facility] TDAP (ADACEL) 2018-02-15 Completed [facility] VACCINE 00:00:00 [facility] TDAP (ADACEL) 2018-02-15 Completed [facility] VACCINE 00:00:00 [facility] TDAP (ADACEL) 2018-02-15 Completed [facility] VACCINE 00:00:00 [facility] TDAP (ADACEL) 2018-02-15 Completed [facility] VACCINE 00:00:00 [facility] TDAP (ADACEL) 2018-02-15 Completed [facility] VACCINE 00:00:00 [facility] TDAP (ADACEL) 2018-02-15 Completed [facility] VACCINE 00:00:00 [facility] TDAP (ADACEL) 2018-02-15 Completed [facility] VACCINE 00:00:00 [facility] TDAP (ADACEL) 2018-02-15 Completed [facility] VACCINE 00:00:00 [facility] TDAP (ADACEL) 2018-02-15 Completed [facility] VACCINE 00:00:00 [facility] TDAP (ADACEL) 2018-02-15 Completed [facility] VACCINE 00:00:00 [facility] TDAP (ADACEL) 2018-02-15 Completed [facility] VACCINE 00:00:00 [facility] TDAP (ADACEL) 2018-02-15 Completed [facility] VACCINE 00:00:00 [facility] TDAP (ADACEL) 2018-02-15 Completed [facility] VACCINE 00:00:00 [facility] TDAP (ADACEL) 2018-02-15 Completed [facility] VACCINE 00:00:00 [facility] TDAP (ADACEL) 2018-02-15 Completed [facility] VACCINE 00:00:00 [facility] TDAP (ADACEL) 2018-02-15 Completed [facility] VACCINE 00:00:00 [facility] TDAP (ADACEL) 2018-02-15 Completed [facility] VACCINE 00:00:00 [facility] TDAP (ADACEL) 2018-02-15 Completed [facility] VACCINE 00:00:00 [facility] TDAP (ADACEL) 2018-02-15 Completed [facility] VACCINE 00:00:00 [facility] TDAP (ADACEL) 2018-02-15 Completed [facility] VACCINE 00:00:00 [facility] TDAP (ADACEL) 2018-02-15 Completed [facility] VACCINE 00:00:00 [facility] TDAP (ADACEL) 2018-02-15 Completed [facility] VACCINE 00:00:00 [facility] TDAP (ADACEL) 2018-02-15 Completed [facility] VACCINE 00:00:00 [facility] TDAP (ADACEL) 2018-02-15 Completed [facility] VACCINE 00:00:00 [facility] TDAP (ADACEL) 2018-02-15 Completed [facility] VACCINE 00:00:00 [facility] TDAP (ADACEL) 2018-02-15 Completed [facility] VACCINE 00:00:00 [facility] TDAP (ADACEL) 2018-02-15 Completed [facility] VACCINE 00:00:00 [facility] TDAP (ADACEL) 2018-02-15 Completed [facility] VACCINE 00:00:00 [facility] TDAP (ADACEL) 2018-02-15 Completed [facility] VACCINE 00:00:00 [facility] TDAP (ADACEL) 2018-02-15 Completed [facility] VACCINE 00:00:00 [facility] TDAP (ADACEL) 2018-02-15 Completed [facility] VACCINE 00:00:00 [facility] TDAP (ADACEL) 2018-02-15 Completed [facility] VACCINE 00:00:00 [facility] TDAP (ADACEL) 2018-02-15 Completed [facility] VACCINE 00:00:00 [facility] TDAP (ADACEL) 2018-02-15 Completed [facility] VACCINE 00:00:00 [facility] TDAP (ADACEL) 2018-02-15 Completed [facility] VACCINE 00:00:00 [facility] TDAP (ADACEL) 2018-02-15 Completed [facility] VACCINE 00:00:00 [facility] TDAP (ADACEL) 2018-02-15 Completed [facility] VACCINE 00:00:00 [facility] TDAP (ADACEL) 2018-02-15 Completed [facility] VACCINE 00:00:00 [facility] TDAP (ADACEL) 2018-02-15 Completed [facility] VACCINE 00:00:00 [facility] TDAP (ADACEL) 2018-02-15 Completed [facility] VACCINE 00:00:00 [facility] TDAP (ADACEL) 2018-02-15 Completed [facility] VACCINE 00:00:00 [facility] TDAP (ADACEL) 2018-02-15 Completed [facility] VACCINE 00:00:00 [facility] TDAP (ADACEL) 2018-02-15 Completed [facility] VACCINE 00:00:00 [facility] TDAP (ADACEL) 2018-02-15 Completed [facility] VACCINE 00:00:00 [facility] Influenza Virus 2017-12-14 Completed Universit y of Vaccine Quad IM 3+ 00:00:00 [facility] Influenza Virus 2017-12-14 Completed [facility] y of Vaccine [facility] IM 3+ 00:00:00 [facility] Influenza Virus 2017-12-14 Completed [facility] y of [facility] IM 3+ 00:00:00 [facility] Influenza Virus 2017-12-14 Completed [facility] y of [facility] IM 3+ 00:00:00 [facility] Influenza Virus 2017-12-14 Completed [facility] y of [facility] IM 3+ 00:00:00 [facility] Influenza Virus 2017-12-14 Completed [facility] y of [facility] IM 3+ 00:00:00 [facility] Influenza Virus 2017-12-14 Completed [facility] y of [facility] IM 3+ 00:00:00 [facility] Influenza Virus 2017-12-14 Completed [facility] y of [facility] IM 3+ 00:00:00 [facility] Influenza Virus 2017-12-14 Completed [facility] y of [facility] IM 3+ 00:00:00 [facility] Influenza Virus 2017-12-14 Completed [facility] y of [facility] IM 3+ 00:00:00 [facility] Influenza Virus 2017-12-14 Completed [facility] y of [facility] IM 3+ 00:00:00 [facility] Influenza Virus 2017-12-14 Completed [facility] y of [facility]ine [facility] IM 3+ 00:00:00 [facility] Influenza Virus 2017-12-14 Completed [facility] y of [facility] IM 3+ 00:00:00 [facility] Influenza Virus 2017-12-14 Completed [facility] y [facility] IM 3+ 00:00:00 [facility] Influenza Virus 2017-12-14 Completed [facility] y of [facility] IM 3+ 00:00:00 [facility] Influenza Virus 2017-12-14 Completed [facility] y [facility] IM 3+ 00:00:00 [facility] Influenza Virus 2017-12-14 Completed [facility] y [facility] IM 3+ 00:00:00 [facility] Influenza Virus 2017-12-14 Completed [facility] y of [facility] IM 3+ 00:00:00 [facility] Influenza Virus 2017-12-14 Completed [facility] y [facility] IM 3+ 00:00:00 [facility] Influenza Virus 2017-12-14 Completed [facility] y [facility] IM 3+ 00:00:00 [facility] Influenza Virus 2017-12-14 Completed [facility] y [facility] IM 3+ 00:00:00 [facility] Influenza Virus 2017-12-14 Completed [facility] y [facility] IM 3+ 00:00:00 [facility] Influenza Virus 2017-12-14 Completed [facility] y [facility] IM 3+ 00:00:00 [facility] Influenza Virus 2017-12-14 Completed [facility] y [facility] IM 3+ 00:00:00 [facility] Influenza Virus 2017-12-14 Completed [facility] y [facility] IM 3+ 00:00:00 [facility] Influenza Virus 2017-12-14 Completed [facility] y of [facility] IM 3+ 00:00:00 [facility] Influenza Virus 2017-12-14 Completed [facility] y [facility] IM 3+ 00:00:00 [facility] Influenza Virus 2017-12-14 Completed [facility] y [facility] IM 3+ 00:00:00 [facility] Influenza Virus 2017-12-14 Completed [facility] y [facility] IM 3+ 00:00:00 [facility] Influenza Virus 2017-12-14 Completed [facility] y [facility] IM 3+ 00:00:00 [facility] Influenza Virus 2017-12-14 Completed [facility] IM 3+ 00:00:00 [facility] Influenza Virus 2017-12-14 Completed [facility] IM 3+ 00:00:00 [facility] Influenza Virus 2017-12-14 Completed [facility] y [facility] IM 3+ 00:00:00 [facility] Influenza Virus 2017-12-14 Completed [facility] y [facility] IM 3+ 00:00:00 [facility] Influenza Virus 2017-12-14 Completed [facility] y [facility] IM 3+ 00:00:00 [facility] Influenza Virus 2017-12-14 Completed [facility] y [facility]ine [facility] IM 3+ 00:00:00 [facility] Influenza Virus 2017-12-14 Completed [facility] y of Vaccine [facility] IM 3+ 00:00:00 [facility] Influenza Virus 2017-12-14 Completed [facility] y of [facility] IM 3+ 00:00:00 [facility] Influenza Virus 2017-12-14 Completed [facility] IM 3+ 00:00:00 [facility] Influenza Virus 2017-12-14 Completed [facility] IM 3+ 00:00:00 [facility] Influenza Virus 2017-12-14 Completed [facility] IM 3+ 00:00:00 [facility] Influenza Virus 2017-12-14 Completed [facility] IM 3+ 00:00:00 [facility] Influenza Virus 2017-12-14 Completed [facility] IM 3+ 00:00:00 [facility] Influenza Virus 2017-12-14 Completed [facility] IM 3+ 00:00:00 [facility] Influenza Virus 2017-12-14 Completed [facility] y [facility] Vaccine [facility] IM 3+ 00:00:[address] [facility] [facility] Influenza Virus 2017-12-14 Completed [facility] 3+ 00:00:00 [facility] Influenza Virus 2017-12-14 Completed [facility] IM 3+ 00[facility]00:00 [facility] Influenza Virus 2017-12-14 Completed [facility] IM 3+ 00:00:00 [facility] Influenza Virus 2017-12-14 Completed [facility] IM 3+ 00:00:00 [facility] Influenza Virus 2017-12-14 Completed [facility] IM 3+ 00:00:00 [facility] Influenza Virus 2017-12-14 Completed [facility] IM 3+ 00:00:00 [facility] Influenza Virus 2017-12-14 Completed [facility] IM 3+ 00:00:00 [facility] Influenza Virus 2017-12-14 Completed [facility] IM 3+ 00:00:00 [facility] Influenza Virus 2017-12-14 Completed [facility] IM 3+ 00:00:00 [facility] Influenza Virus 2017-12-14 Completed [facility] IM 3+ 00:00:00 [facility] Varicella 2016-05-24 Completed University of [...] Branch TDAP 2016-04-03 Completed University of 00:00:00 [facility] TDAP 2016-04-03 Completed University of 00:00:00 [facility] TDAP 2016-04-03 Completed University of 00:00:00 [facility] TDAP 2016-04-03 Completed University of 00:00:00 [facility] TDAP 2016-04-03 Completed University of 00:00:00 [facility] TDAP 2016-04-03 Completed University of 00:00:00 [facility] TDAP 2016-04-03 Completed University of 00:00:00 [facility] TDAP 2016-04-03 Completed University of 00:00:00 [facility] TDAP 2016-04-03 Completed University of 00:00:00 [facility] TDAP 2016-04-03 Completed University of 00:00:00 [facility] TDAP 2016-04-03 Completed University of 00:00:00 [facility] TDAP 2016-04-03 Completed University of 00:00:00 [facility] TDAP 2016-04-03 Completed University of 00:00:00 [facility] TDAP 2016-04-03 Completed University of 00:00:00 [facility] TDAP 2016-04-03 Completed University of 00:00:00 [facility] TDAP 2016-04-03 Completed University of 00:00:00 [facility] TDAP 2016-04-03 Completed University of 00:00:00 [facility] TDAP 2016-04-03 Completed [facility] of 00:00:00 [facility] TDAP 2016-04-03 Completed [facility] of 00:00:00 [facility] TDAP 2016-04-03 Completed [facility] of 00:00:00 [facility] TDAP 2016-04-03 Completed University of 00:00:00 [facility] TDAP 2016-04-03 Completed [facility] of 00:00:00 [facility] TDAP 2016-04-03 Completed University of 00:00:00 [facility] TDAP 2016-04-03 Completed [facility] of 00:00:00 [facility] TDAP 2016-04-03 Completed [facility] of 00:00:00 [facility] TDAP 2016-04-03 Completed [facility] of 00:00:00 [facility] TDAP 2016-04-03 Completed [facility] of 00:00:00 [facility] TDAP 2016-04-03 Completed University of 00:00:00 [facility] TDAP 2016-04-03 Completed University of 00:00:00 [facility] TDAP 2016-04-03 Completed University of 00:00:00 [facility] TDAP 2016-04-03 Completed University of 00:00:00 [facility] TDAP 2016-04-03 Completed University of 00:00:00 [facility] TDAP 2016-04-03 Completed [facility] of 00:00:00 [facility] TDAP 2016-04-03 Completed [facility] of 00:00:00 [facility] TDAP 2016-04-03 Completed [facility] of 00:00:00 [facility] TDAP 2016-04-03 Completed [facility] of 00:00:00 [facility] TDAP 2016-04-03 Completed [facility] of 00:00:00 [facility] TDAP 2016-04-03 Completed [facility] of 00:00:00 [facility] TDAP 2016-04-03 Completed [facility] of 00:00:00 [facility] TDAP 2016-04-03 Completed [facility] of 00:00:00 [facility] TDAP 2016-04-03 Completed [facility] of 00:00:00 [facility] TDAP 2016-04-03 Completed [facility] of 00:00:00 [facility] TDAP 2016-04-03 Completed [facility] of 00:00:00 [facility] TDAP 2016-04-03 Completed [facility] of 00:00:00 [facility] TDAP 2016-04-03 Completed [facility] of 00:00:00 [facility] TDAP 2016-04-03 Completed [facility] of 00:00:00 [facility] TDAP 2016-04-03 Completed [facility] of 00:00:00 [facility] TDAP 2016-04-03 Completed [facility] of 00:00:00 [facility] TDAP 2016-04-03 Completed [facility] of 00:00:00 [facility] TDAP 2016-04-03 Completed [facility] of 00:00:00 [facility] TDAP 2016-04-03 Completed [facility] of 00:00:00 [facility] TDAP 2016-04-03 Completed [facility] of 00:00:00 [facility] TDAP 2016-04-03 Completed [facility] of 00:00:00 [facility] TDAP 2016-04-03 Completed [facility] of 00:00:00 [facility] TDAP 2016-04-03 Completed [facility] of 00:00:00 [facility] Rho (d) Immune 2016-03-27 Completed University of Globulin 00:00:00 [facility] Rho (d) Immune 2016-03-27 Completed [facility] of Globulin 00:00:00 [facility] Rho (d) Immune 2016-03-27 Completed [facility] Gl[facility] 00:00:00 [facility] Rho (d) Immune 2016-03-27 Completed [facility] of Globulin 00:00:00 [facility] Rho (d) Immune 2016-03-27 Completed [facility] of Globulin 00:00:00 [facility] Rho (d) Immune 2016-03-27 Completed [facility] of Globulin 00:00:00 [facility] Rho (d) Immune 2016-03-27 Completed [facility] of Globulin 00:00:00 [facility] Rho (d) Immune 2016-03-27 Completed [facility] of Globulin 00:00:00 [facility] Rho (d) Immune 2016-03-27 Completed [facility] of Globulin 00:00:00 [facility] Rho (d) Immune 2016-03-27 Completed [facility] of Globulin 00:00:00 [facility] Rho (d) Immune 2016-03-27 Completed [facility] of Globulin 00:00:00 [facility] Rho (d) Immune 2016-03-27 Completed [facility] of Globulin 00:00:00 [facility] Rho (d) Immune 2016-03-27 Completed [facility] of Globulin 00:00:00 [facility] Rho (d) Immune 2016-03-27 Completed [facility] of Globulin 00:00:00 [facility] Rho (d) Immune 2016-03-27 Completed [facility] of Globulin 00:00:00 [facility] Rho (d) Immune 2016-03-27 Completed [facility] of Globulin 00:00:00 [facility] Rho (d) Immune 2016-03-27 Completed [facility] of Globulin 00:00:00 [facility] Rho (d) Immune 2016-03-27 Completed [facility] of Globulin 00:00:00 [facility] Rho (d) Immune 2016-03-27 Completed [facility] of Globulin 00:00:00 [facility] Rho (d) Immune 2016-03-27 Completed [facility] of Globulin 00:00:00 [facility] Rho (d) Immune 2016-03-27 Completed [facility] of Globulin 00:00:00 [facility] Rho (d) Immune 2016-03-27 Completed [facility] of Globulin 00:00:00 [facility] Rho (d) Immune 2016-03-27 Completed [facility] of Globulin 00:00:00 [facility] Rho (d) Immune 2016-03-27 Completed [facility] of Globulin 00:00:00 [facility] Rho (d) Immune 2016-03-27 Completed [facility] of Globulin 00:00:00 [facility] Rho (d) Immune 2016-03-27 Completed [facility] of Globulin 00:00:00 [facility] Rho (d) Immune 2016-03-27 Completed [facility] of Globulin 00:00:00 [facility] Rho (d) Immune 2016-03-27 Completed [facility] of Globulin 00:00:00 [facility] Rho (d) Immune 2016-03-27 Completed [facility] of Globulin 00:00:00 [facility] Rho (d) Immune 2016-03-27 Completed [facility] of Globulin 00:00:00 [facility] Rho (d) Immune 2016-03-27 Completed [facility] of Globulin 00:00:00 [facility] Rho (d) Immune 2016-03-27 Completed [facility] of Globulin 00:00:00 [facility] Rho (d) Immune 2016-03-27 Completed [facility] of Globulin 00:00:00 [facility] Rho (d) Immune 2016-03-27 Completed [facility] of Globulin 00:00:00 [facility] Rho (d) Immune 2016-03-27 Completed [facility] of Globulin 00:00:00 [facility] Rho (d) Immune 2016-03-27 Completed [facility] of Globulin 00:00:00 [facility] Rho (d) Immune 2016-03-27 Completed [facility] of Globulin 00:00:00 [facility] Rho (d) Immune 2016-03-27 Completed [facility] of Globulin 00:00:00 [facility] Rho (d) Immune 2016-03-27 Completed [facility] of Globulin 00:00:00 [facility] Rho (d) Immune 2016-03-27 Completed [facility] of Globulin 00:00:00 [facility] Rho (d) Immune 2016-03-27 Completed [facility] of Globulin 00:00:00 [facility] Rho (d) Immune 2016-03-27 Completed [facility] of Globulin 00:00:00 [facility] Rho (d) Immune 2016-03-27 Completed [facility] of Globulin 00:00:00 [facility] Rho (d) Immune 2016-03-27 Completed [facility] of Globulin 00:00:00 [facility] Rho (d) Immune 2016-03-27 Completed [facility] of Globulin 00:00:00 [facility] Rho (d) Immune 2016-03-27 Completed [facility] of Globulin 00:00:00 [facility] Rho (d) Immune 2016-03-27 Completed [facility] of Globulin 00:00:00 [facility] Rho (d) Immune 2016-03-27 Completed [facility] of Globulin 00:00:00 [facility] Rho (d) Immune 2016-03-27 Completed [facility] of Globulin 00:00:00 [facility] Rho (d) Immune 2016-03-27 Completed University of Globulin 00:00:00 [facility] Rho (d) Immune 2016-03-27 Completed [facility] of Globulin 00:00:00 [facility] Rho (d) Immune 2016-03-27 Completed [facility] of Globulin 00:00:00 [facility] Rho (d) Immune 2016-03-27 Completed [facility] of Globulin 00:00:00 [facility] Rho (d) Immune 2016-03-27 Completed [facility] of Globulin 00:00:00 [facility] Rho (d) Immune 2016-03-27 Completed [facility] of Globulin 00:00:00 [facility] Vital Signs Vital Name Observation Time Observation Value Comments Source HEIGHT 2020-09-22 06:00:00 152.4 cm WEIGHT 2020-09-22 06:00:00 80.8 kg HEIGHT 2020-09-21 19:00:00 152.4 cm WEIGHT 2020-09-21 19:00:00 80.786 kg Systolic blood 2022-03-18 20:14:00 145 mm[Hg] Univer sity of pressure [facility] Diastolic blood 2022-03-18 20:14:00 76 mm[Hg] Unive rsity of [facility] Heart rate 2022-03-18 20:14:00 84 /min [facility] Respiratory rate 2022-03-18 20:14:00 18 /[facility] 2022-03-18 20:14:00 99 /min [facility] Arterial blood by [facility] Pulse oximetry Branch Systolic blood 2022-03-04 17:21:00 115 mm[Hg] Univer sity of pressure [facility] Diastolic blood 2022-03-04 17:21:00 79 mm[Hg] Unive rsity of pressure [facility] Heart rate 2022-03-04 17:21:00 82 /min [facility] Respiratory rate 2022-03-04 17:21:00 17 /min [facility] Body weight 2022-03-04 17:21:00 91.128 kg Universi [facility] BMI 2022-03-04 17:21:00 34.48 kg/m2 [facility] Systolic blood 2022-02-16 23:00:00 130 mm[Hg] Univer sity of pressure [facility] Diastolic blood 2022-02-16 23:00:00 80 mm[Hg] Unive rsity of pressure [facility] Respiratory rate 2022-02-16 23:00:00 16 /min Univ ersity of [facility] Heart rate 2022-02-16 21:45:00 71 /min [facility]i ty [facility] Oxygen saturation in 2022-02-16 21:45:00 98 /min University of Arterial blood by [facility] tressa Pulse oximetry Branch Body temperature 2022-02-16 18:25:13 37.22 Shira Univ ersity of [facility] Body weight 2022-02-16 17:54:00 92.08 kg [facility]i ty [facility] BMI 2022-02-16 17:54:00 34.84 kg/m2 [facility] Systolic blood 2022-02-12 14:54:00 120 mm[Hg] Univer sity of pressure [facility] Diastolic blood 2022-02-12 14:54:00 79 mm[Hg] Unive rsity of pressure [facility] Heart rate 2022-02-12 14:54:00 81 /min [facility]i ty [facility] Body temperature 2022-02-12 14:54:00 36.67 Shira Univ ersity of [facility] Respiratory rate 2022-02-12 14:54:00 18 /min Univ ersity of [facility] Oxygen saturation in 2022-02-12 14:54:00 98 /min University of Arterial blood by [facility] Pulse oximetry Branch Body height 2022-02-10 22:10:00 162.6 cm [facility] Body weight 2022-02-10 22:10:00 96.163 kg [facility] BMI 2022-02-10 22:10:00 36.39 kg/m2 [facility] Systolic blood 2022-02-06 20:04:00 120 mm[Hg] Univer sity of pressure [facility] Diastolic blood 2022-02-06 20:04:00 76 mm[Hg] Unive rsity of pressure [facility] Heart rate 2022-02-06 20:04:00 89 /min [facility] Body temperature 2022-02-06 20:04:00 36.44 Shira Univ ersity of [facility] Respiratory rate 2022-02-06 20:04:00 18 /min Univ ersity of [facility] Body height 2022-02-06 20:04:00 162.6 cm [facility] Body weight 2022-02-06 20:04:00 96.344 kg [facility] BMI 2022-02-06 20:04:00 36.46 kg/m2 [facility] Systolic blood 2022-02-03 21:03:00 121 mm[Hg] Univer sity of pressure [facility] Diastolic blood 2022-02-03 21:03:00 73 mm[Hg] Unive rsity of pressure [facility] Heart rate 2022-02-03 21:03:00 85 /min [facility] Body temperature 2022-02-03 21:03:00 36.44 Shira Univ ers[facility] Respiratory rate 2022-02-03 21:03:00 17 /min Univ ersity of [facility] Body height 2022-02-03 21:03:00 162.6 cm [facility] Body weight 2022-02-03 21:03:00 96.525 kg [facility] BMI 2022-02-03 21:03:00 36.53 kg/m2 [facility] Heart rate 2022-01-30 23:30:00 102 /min Universi ty of [facility] Oxygen saturation in 2022-01-30 23:30:00 99 /min University Arterial blood by [facility] Pulse oximetry Branch Systolic blood 2022-01-30 22:45:00 118 mm[Hg] Univer sity of pressure [facility] Diastolic blood 2022-01-30 22:45:00 69 mm[Hg] Unive rsity of pressure [facility] Respiratory rate 2022-01-30 22:10:00 38 /min Univ ersity of [facility] Body temperature 2022-01-30 21:43:00 37.06 Shira Univ ersity of [facility] Body height 2022-01-30 21:43:00 162.6 cm [facility]i ty [facility] Body weight 2022-01-30 21:43:00 95.709 kg [facility] BMI 2022-01-30 21:43:00 36.22 kg/m2 [facility] Systolic blood 2022-01-29 20:36:00 128 mm[Hg] Univer sity of pressure [facility] Diastolic blood 2022-01-29 20:36:00 76 mm[Hg] Unive rsity of pressure [facility] Heart rate 2022-01-29 20:36:00 78 /min [facility] Body temperature 2022-01-29 20:36:00 36.78 Shira Univ [facility] Respiratory rate 2022-01-29 20:36:00 18 /min Univ ersity of [facility] Body height 2022-01-29 20:36:00 162.6 cm [facility] Body weight 2022-01-29 20:36:00 96.117 kg [facility] BMI 2022-01-29 20:36:00 36.37 kg/m2 [facility] Systolic blood 2022-01-27 18:57:00 118 mm[Hg] Univer sity of pressure [facility] Diastolic blood 2022-01-27 18:57:00 72 mm[Hg] Unive rsity of pressure [facility] Heart rate 2022-01-27 18:57:00 86 /min [facility] Body temperature 2022-01-27 18:57:00 36.61 Shira Univ ers[facility] Respiratory rate 2022-01-27 18:57:00 20 /min Univ ersity of [facility] Body height 2022-01-27 18:57:00 162.6 cm [facility] Body weight 2022-01-27 18:57:00 96.798 kg [facility] BMI 2022-01-27 18:57:00 36.63 kg/m2 [facility] Systolic blood 2022 21:02:00 126 mm[Hg] Univer sity of pressure [facility] Diastolic blood 2022 21:02:00 68 mm[Hg] Unive rsity of pressure [facility] Heart rate 2022 21:02:00 88 /min [facility] Body temperature 2022 21:02:00 36.39 Shira Univ ersity [facility] Respiratory rate 2022 21:02:00 17 /min Univ ersity of [facility] Body height 2022 21:02:00 162.6 cm [facility] Body weight 2022 21:02:00 97.16 kg [facility] BMI 2022 21:02:00 36.77 kg/m2 [facility] Systolic blood 2022-01-21 16:22:00 132 mm[Hg] Univer sity of pressure [facility] Diastolic blood 2022-01-21 16:22:00 79 mm[Hg] Unive rsity of pressure [facility] Heart rate 2022-01-21 16:22:00 99 /min [facility]i ty [facility] Body temperature 2022-01-21 16:22:00 36.11 Shira Univ [facility] Respiratory rate 2022-01-21 16:22:00 17 /min Univ ersity of [facility] Body height 2022-01-21 16:22:00 162.6 cm [facility] Body weight 2022-01-21 16:22:00 95.845 kg [facility] BMI 2022-01-21 16:22:00 36.27 kg/m2 [facility] Systolic blood 2022-01-16 19:35:00 121 [...] 2022-01-16 19:35:00 95.936 kg [facility] BMI 2022-01-16 19:35:00 36.30 kg/m2 [facility] Systolic blood 2022-01-13 16:56:00 126 mm[Hg] Univer sity of pressure [facility] Diastolic blood 2022-01-13 16:56:00 68 mm[Hg] Unive rsity of pressure [facility] Heart rate 2022-01-13 16:56:00 77 /min [facility] Body temperature 2022-01-13 16:56:00 36.5 Shira Univ [facility] Respiratory rate 2022-01-13 16:56:00 17 /min Univ ersity of [facility] Body height 2022-01-13 16:56:00 162.6 cm [facility] Body weight 2022-01-13 16:56:00 96.163 kg [facility] BMI 2022-01-13 16:56:00 36.39 kg/m2 [facility] Systolic blood 2022-01-09 18:46:00 115 mm[Hg] Univer sity of pressure [facility] Diastolic blood 2022-01-09 18:46:00 79 mm[Hg] Unive rsity of pressure [facility] Heart rate 2022-01-09 18:46:00 79 /min [facility] Body temperature 2022-01-09 18:46:00 36.67 Shira Univ [facility] Respiratory rate 2022-01-09 18:46:00 18 /min Univ ersity of [facility] Body height 2022-01-09 18:46:00 162.6 cm [facility] Body weight 2022-01-09 18:46:00 96.117 kg [facility] BMI 2022-01-09 18:46:00 36.37 kg/m2 [facility] Systolic blood 2022-01-06 19:15:00 132 mm[Hg] Univer sity of pressure [facility] Diastolic blood 2022-01-06 19:15:00 74 mm[Hg] Unive rsity of pressure [facility] Heart rate 2022-01-06 19:15:00 86 /min [facility] Body temperature 2022-01-06 19:15:00 36.78 Shira Univ [facility] Respiratory rate 2022-01-06 19:15:00 18 /min Univ ersity of [facility] Body height 2022-01-06 19:15:00 162.6 cm [facility] Body weight 2022-01-06 19:15:00 94.944 kg [facility] BMI 2022-01-06 19:15:00 35.93 kg/m2 [facility] Systolic blood 2022-01-02 18:24:00 111 mm[Hg] Univer sity of pressure [facility] Diastolic blood 2022-01-02 18:24:00 69 mm[Hg] Unive rsity of pressure [facility] Heart rate 2022-01-02 18:24:00 83 /min [facility]i [facility] Body temperature 2022-01-02 18:24:00 36.28 Shira Univ [facility] Respiratory rate 2022-01-02 18:24:00 17 /min Univ ersity of [facility] Body height 2022-01-02 18:24:00 162.6 cm [facility] Body weight 2022-01-02 18:24:00 94.575 kg [facility] BMI 2022-01-02 18:24:00 35.79 kg/m2 [facility] Systolic blood 2021-12-30 20:46:00 137 mm[Hg] Univer sity of pressure [facility] Diastolic blood 2021-12-30 20:46:00 77 mm[Hg] Unive rsity of pressure [facility] Heart rate 2021-12-30 20:46:00 89 /min [facility] [facility] Body temperature 2021-12-30 20:46:00 36.22 Shira [facility] [place] [facility] Respiratory rate 2021-12-30 20:46:00 18 /min [facility] [place] [facility] Body height 2021-12-30 20:46:00 162.6 cm [facility] Body weight 2021-12-30 20:46:00 95.851 kg [facility] BMI 2021-12-30 20:46:00 36.27 kg/m2 [facility] Systolic blood 2021-12-17 19:45:00 127 mm[Hg] [facility] [place] [facility] Diastolic blood 2021-12-17 19:45:00 84 mm[Hg] [facility] [place] [facility] Heart rate 2021-12-17 19:45:00 107 /min [facility] Body temperature 2021-12-17 19:45:00 35.94 Shira [facility] Respiratory rate 2021-12-17 19:45:00 18 /min [facility] Body height 2021-12-17 19:45:00 162.6 cm [facility] Body weight 2021-12-17 19:45:00 94.065 kg [facility] BMI 2021-12-17 19:45:00 35.60 kg/m2 [facility] Heart rate 2021-12-01 21:00:00 90 /min [facility] Oxygen saturation in 2021-12-01 21:00:00 99 /min [facility] of Arterial blood by [facility] Pulse oximetry Branch Systolic blood 2021-12-01 20:45:00 136 mm[Hg] [facility] [place] [facility] Diastolic blood 2021-12-01 20:45:00 73 mm[Hg] [facility] [place] [facility] Body temperature 2021-12-01 20:12:00 36.33 Shira [facility] Respiratory rate 2021-12-01 20:12:00 18 /min [facility] Body weight 2021-12-01 19:42:00 92.987 kg [facility] BMI 2021-12-01 19:42:00 35.19 kg/m2 [facility] Systolic blood 2021-11-30 16:47:00 133 mm[Hg] [facility] [place] [facility] Diastolic blood 2021-11-30 16:47:00 73 mm[Hg] [facility] [place] [facility] Heart rate 2021-11-30 16:47:00 96 /min [facility] [place] [facility] Body temperature 2021-11-30 16:47:00 36.17 Shira [facility] Respiratory rate 2021-11-30 16:47:00 18 /min [facility] [place] [facility] [place] Body weight 2021-11-30 16:47:00 94.031 kg [facility] [place] [facility] [place] BMI 2021-11-30 16:47:00 35.58 kg/m2 [facility] Oxygen saturation in 2021-11-30 16:47:00 97 /min [facility] Arterial blood by [facility] Pulse oximetry Branch Systolic blood 2021-11-29 13:03:00 113 mm[Hg] Univer [facility]ity of pressure [facility] Diastolic blood 2021-11-29 13:03:00 65 mm[Hg] Unive rsity of pressure [facility] Heart rate 2021-11-29 13:03:00 82 /min [facility] Body temperature 2021-11-29 13:03:00 36.89 Shira [facility] Res[facility] rate 2021-11-29 13:03:00 20 /min [facility] ersity [facility] Body height 2021-11-29 13:03:00 162.6 cm [facility] [place] [facility] [place] Body weight 2021-11-29 13:03:00 92.987 kg [facility] [place] [facility] [place] BMI 2021-11-29 13:03:00 35.19 kg/m2 [facility] Oxygen saturation in 2021-11-29 13:03:00 100 /min [facility] Arterial blood by [facility] Pulse oximetry Branch HEIGHT 2020-09-22 06:00:00 152.4 cm WEIGHT 2020-09-22 06:00:00 80.8 kg HEIGHT 2020-09-21 19:00:00 152.4 cm WEIGHT 2020-09-21 19:00:00 80.786 kg Procedures Procedure Date / Time Performing Clinician Source Performed PREPARE PACKED RBC 2022-02-16 23:41:05 Raven Goldsmith [facility] CT CHEST PULMONARY 2022-02-16 21:13:19 Raven Goldsmith [facility] ANGIOGRAM [facility] [place] CT HEAD WO CONTRAST 2022-02-16 21:12:52 Raven Goldsmith [facility] PELVIS COMPLETE WITH 2022-02-16 19:47:38 Raven Goldsmith [facility] TRANSVAGINAL [facility] HB ABO GROUPING 2022-02-16 18:30:00 Raven Goldsmith [facility] MAGNESIUM 2022-02-16 18:29:00 Raven Goldsmith [facility] TROPONIN I 2022-02-16 18:29:00 Raven Goldsmith [facility] COMP. METABOLIC PANEL 2022-02-16 18:29:00 Raven Goldsmith [facility] ([id number]) [facility] CBC WITH DIFF 2022-02-16 18:29:00 Agus Raven [facility] PROTHROMBIN TIME / INR 2022-02-16 18:29:00 Raven Goldsmith [facility] ACTIVATED PARTIAL 2022-02-16 18:29:00 [facility] THRMPLAS ISABELL [facility] N-TERMINAL PRO-BNP 2022-02-16 18:29:00 Raven Goldsmith [facility] URINALYSIS 2022-02-16 18:14:00 Raven Goldsmith [facility] URINE DRUG (IMMUNOASSAY) 2022-02-16 18:14:00 Raven Goldsmith [facility] SCREEN W/O REFLEX CONSENT/REFUSAL FOR 2022-02-16 17:48:27 Doctor Unassigned, [facility] DIAGNOSIS AND TREATMENT [facility] CBC WITH DIFF 2022-02-12 10:03:00 Hermila [facility] HB -MATERNAL 2022-02-12 10:00:00 Hermila [facility] [place] HEMORRHAGE SCREEN [facility] VENOUS CORD GAS 2022-02-11 16:58:00 [facility] CENTRAL NEURAXIAL BLOCK 2022-02-11 06:58:26 Nory Jiménez [facility] CBC WITH DIFF 2022-02-10 23:27:00 [facility] HEPATITIS B SURFACE 2022-02-10 23:27:00 Raya Ramirez [facility] ANTIGEN [facility] HIV 1/2 AG-AB WITH REFLEX 2022-02-10 23:27:00 [facility] GAL[facility] ONLY - SYPHILIS 2022-02-10 23:27:00 Raya Ramirez [facility] IGG/IGM [facility] ANTI-D R/O PANEL 2022-02-10 23:25:00 James Raya [facility] HB ABO GROUPING 2022-02-10 23:25:00 James Raya [place] [facility] RHO (D) IMMUNE GLOBULIN 2022-02-10 23:25:00 Magaly Cleaning [facility] AUTHORIZATION FOR RELEASE 2022-02-07 06:01:00 Doctor Unassigned, [facility] NON-STRESS TEST 2022-02-06 21:51:27 Kevin Singh [facility] POCT URINALYSIS 2022-02-06 00:00:00 Alma Solis [facility] POCT URINALYSIS 2022-02-03 22:20:00 Alma Solis [facility] NON-STRESS TEST 2022-02-03 21:35:28 Alma Solis [facility] URINE DRUG (IMMUNOASSAY) 2022-01-30 22:11:00 Dennys Lara [facility] SCREEN URINALYSIS 2022-01-30 22:11:00 Areli Patel [facility] HB ABO GROUPING 2022-01-30 21:57:00 Areli Patel [facility] LIPASE 2022-01-30 21:52:00 Areli Patel [facility] MAGNESIUM 2022-01-30 21:52:00 Areli Patel [facility] COMP. METABOLIC PANEL 2022-01-30 21:52:00 Areli Patel [facility] ([id number]) [facility] CBC WITH DIFF 2022-01-30 21:52:00 Areli Patel [facility] PROTHROMBIN TIME / INR 2022-01-30 21:52:00 [facility] (ID NOW RAPID 2022-01-30 21:52:00 Areli Patel Un [facility] TESTING) [facility] HOSPITAL ADMISSION 2022-01-30 06:01:00 Doctor Unassigned, [facility] NON-STRESS TEST 2022-01-30 02:30:41 Radha Nobles Un [facility] CBC WITH DIFF 2022-01-29 21:15:00 Radha Nobles [facility] GC & CHLAMYDIA AMPLIFIED 2022-01-29 21:15:00 Radha Nobles [facility] GROUP B STREPTOCOCCUS BY 2022-01-29 21:15:00 Radha [facility]les [facility] POCT URINALYSIS 2022-01-29 00:00:00 Alma Solis [facility] NON-STRESS TEST 2022-01-28 20:12:49 Irma Alma C [facility] POCT URINALYSIS 2022-01-27 00:00:00 Akinjeanettepe Alma C [facility] NON-STRESS TEST 2022 21:50:59 Akinsipe Alma C U [facility] POCT URINALYSIS 2022 00:00:00 Akinjeanettepe Alma C [facility] NON-STRESS TEST 2022-01-21 18:09:21 Radha Nobles [facility] POCT URINALYSIS 2022-01-21 00:00:00 Akinsipe Alma C [facility] NON-STRESS TEST 2022-01-16 20:01:49 Amy Sharma [facility] NON-STRESS TEST 2022-01-13 17:45:33 Radha Nobles [facility] POCT URINALYSIS 2022-01-13 00:00:00 Alma Solis [facility] POCT URINALYSIS 2022-01-09 18:51:00 Alma Solis [facility] NON-STRESS TEST 2022-01-07 14:56:27 Alma Solis [facility] POCT URINALYSIS 2022-01-06 19:16:00 Alma Solis [facility] PATIENT CORRESPONDENCE 2022-01-03 05:01:00 [facility], USPS [facility] [place] DOCUMENTATION) NON-STRESS TEST 2022-01-02 20:04:00 Kevin Singh [facility] POCT URINALYSIS 2022-01-02 00:00:00 Alma Solis [facility] POCT URINALYSIS 2021-12-30 20:47:00 Alma Solis [facility] POCT URINALYSIS 2021-12-17 19:46:00 Alma Solis [facility] TDAP VACCINE, >11 YRS, IM 2021-12-17 19:45:33 Alma Solis [facility] URINALYSIS 2021-12-01 21:41:00 Clayton Sheryl [place] [facility] CONSENT/REFUSAL FOR 2021-12-01 19:40:14 Doctor Thien [facility] DIAGNOSIS AND TREATMENT [facility] CONSENT/REFUSAL FOR 2021-11-30 16:38:10 Doctor Thien [facility] DIAGNOSIS AND TREATMENT [facility] POCT URINALYSIS 2021-11-29 00:00:00 Alma Solis [facility] AUTHORIZATION FOR RELEASE 2021-07-19 05:01:00 Doctor Thien, [facility] [place] Plan of Care Planned Activity Planned Date [...] (3 - Td or Tdap)] Future Scheduled 2022-03-[address] [facility] Test 00:00:00 (12+) [code = Medical Center DEPRESSION SCREENING (12+)] Future Scheduled 2022-03-02 COVID-19 [facility]ACCINE [facility] Test 16:47:47 [code = COVID-19 VACCINE (#1)] Future Scheduled 2022-03-02 Screening for [facility] Test 16:47:47 malignant neoplasm of cervix (procedure) [code = 773437198] Future Scheduled 2022-03-02 INFLUENZA VACCINE [facility] Test 16:47:47 [code = INFLUENZA VACCINE] Future Scheduled 2022-01-12 HEPATITIS B VACCINES [facility] 19:54:31 (1 of 3 - 3-dose series) [code = HEPATITIS B VACCINES (1 of 3 - 3-dose series)] Future Scheduled 2022-01-12 COVID-19 VACCINE (#1) [facility] Test 19:54:31 [code = COVID-19 VACCINE (#1)] Future Scheduled 2022-01-12 Screening for [facility] Test 19:54:31 Chlamydia trachomatis (procedure) [code = 853823749] Future Scheduled 2022-01-12 Hepatitis C screening [facility] Test 19:54:31 (procedure) [code = 752526391] Future Scheduled 2022-01-12 Screening for [facility] Test 19:54:31 malignant neoplasm of cervix (procedure) [code = 824554921] Future Scheduled 2022-01-12 INFLUENZA VACCINE [facility] Test 19:54:31 [code = INFLUENZA VACCINE] Future Scheduled 2021-11-09 Screening for [facility] Test 06:02:25 Chlamydia trachomatis (procedure) [code = 143620892] Future Scheduled 2021-11-09 Hepatitis C screening [facility] Test 06:02:25 (procedure) [code = 817126632] Future Scheduled 2021-11-09 Screening for [facility] Test 06:02:25 malignant neoplasm of cervix (procedure) [code = 182065046] Future Scheduled 2021-11-09 INFLUENZA VACCINE [facility] Test 06:02:25 [code = INFLUENZA VACCINE] Future Scheduled 2021-11-09 HEPATITIS B VACCINES Met [facility] Test 06:02:25 (1 of 3 - 3-dose series) [code = HEPATITIS B VACCINES (1 of 3 - 3-dose series)] Future Scheduled 2021-11-09 COVID-19 VACCINE (#1) [facility] Test 06:02:25 [code = COVID-19 VACCINE (#1)] Future Scheduled 2021-11-09 Screening for [facility] Test 06:02:25 Chlamydia trachomatis (procedure) [code = 421836276] Future Scheduled 2021-11-09 Hepatitis C screening [facility] Test 06:02:25 (procedure) [code = 922449499] Future Scheduled 2021-11-09 Screening for [facility] Test 06:02:25 malignant neoplasm of cervix (procedure) [code = 195577222] Future Scheduled 2021-11-09 INFLUENZA VACCINE [facility] Test 06:02:25 [code = INFLUENZA VACCINE] Future Scheduled 2021-11-09 HEPATITIS B VACCINES Met [facility] Test 06:02:25 (1 of 3 - 3-dose series) [code = HEPATITIS B VACCINES (1 of 3 - 3-dose series)] Future Scheduled 2021-11-09 COVID-19 VACCINE (#1) [facility] Test 06:02:25 [code = COVID-19 VACCINE (#1)] Future Scheduled 2021-11-[address] [facility] Test 00:00:00 (#1) [code = [facility] INFLUENZA VACCINE (#1)] Future Scheduled 2021-11-[address] [facility] Test 00:00:00 (#1) [code = [facility] INFLUENZA VACCINE (#1)] Future Scheduled 2021-11-[address] [facility] Test 00:00:00 (#1) [code = [facility] INFLUENZA VACCINE (#1)] Future Scheduled 2021-11-[address] [facility] Test 00:00:00 (#1) [code = [facility] INFLUENZA VACCINE (#1)] Future Scheduled 2021-09-[address] [facility] Test 00:00:00 [facility] Cent[facility] r Screening (12+) [code = Tobacco Cessation Counseling and Screening (12+)] Future Scheduled 2021-03-[address] [facility] Test 00:00:00 (12+) [code = [facility] DEPRESSION SCREENING (12+)] Future Scheduled 2021-03-[address] [facility] Test 00:00:00 (12+) [code = [facility] DEPRESSION SCREENING (12+)] Future Scheduled 2021-03-[address] [facility] Test 00:00:00 (12+) [code = [facility] DEPRESSION SCREENING (12+)] Future Scheduled [address] [facility] Test 00:00:00 malignant neoplasm of Medica l Center cervix (procedure) [code = 660817053] Future Scheduled [address] [facility] Test 00:00:00 malignant neoplasm of [facility] Center cervix (procedure) [code = 528563916] Future Scheduled [address] [facility] Test 00:00:00 malignant neoplasm of [facility] Center cervix (procedure) [code = 339165572] Future Scheduled [address] [facility] Test 00:00:00 malignant neoplasm of [facility] Center cervix (procedure) [code = 082076353] Future Scheduled [address] [facility] Test 00:00:00 (procedure) [code = [facility] 70965082] Future Scheduled [address] [facility] Test 00:00:00 (procedure) [code = [facility] 39380441] Future Scheduled [address] [facility] Test 00:00:00 (procedure) [code = [facility] 93286281] Future Scheduled [address] [facility] Test 00:00:00 (procedure) [code = [facility] 33750067] Future Scheduled 2015 HEPATITIS C SCREENING [facility] [...] [facility] (procedure) [code = 207185379] Future Scheduled Screening for [facility] Test malignant neoplasm of cervix (procedure) [code = 752865261] Future Scheduled INFLUENZA VACCINE [facility] Test [code = INFLUENZA VACCINE] Encounters Start End Encounter Admission Attending Care Care Encounter Source Date/Time Date/Time Type Type Clinicians Facility Department ID 2021-12-01 Outpatient P [facility] [id number] Univers 18:22:19 ity of [facility] 2021-01-07 Emergency [facility] [id number] Univers 07:14:20 ity of [facility] 2021-01-07 Emergency [facility] [id number] Univers 06:42:50 ity of [facility] 2021-01-07 Emergency [facility] [id number] Univers 06:25:23 ity of [facility] 2021-01-07 Emergency [facility] [id number] Univers 03:52:48 ity of [facility] 2021-01-07 Emergency [facility] [id number] Univers 03:25:06 ity of [facility] 2021-01-06 Emergency [facility] [id number] Univers 03:53:51 ity of [facility] 2020-09-21 Inpatient ER TESHA, [facility] [id number] [facility] 19:23:00 JOANNE 2022-03-28 2022-03-28 Outpatient Bryn NOBLES [facility] [id number] Univers 13:00:00 13:00:00 RADHA hammonds [facility] 2022-03-18 2022-03-18 Outpatient Bryn RHOADES [facility] [id number] Univers 14:15:00 15:00:29 MAU ityolie [facility] 2022-03-18 2022-03-18 Nurse Nurse, [facility] 1.2.840.114 [id number] Univers 14:15:00 14:35:00 Visit Unknown, Attending [facility] 350.1.13.10 ity of [place] [id number] Dwayne as JORGE?BLEA [id number] Ne maria [address] MEDICAL OFFICE BUILDING 2022-03-04 2022-03-04 Outpatient Bryn NOBLES [facility] [id number] Univers 11:00:00 11:52:45 RADHA hammonds [facility] 2022-03-04 2022-03-04 Routine Provider, [facility] 1 .2.840.114 [id number] Univers 11:00:00 11:52:45 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 10 ity of Visit [facility] [id number] Dwayne as MATERNAL [id number] Med ical & CHILD [address] [place] [address] 2022-02-20 2022-02-20 Case [facility] 1.2.840.114 [id number] Univers 00:00:00 00:00:00 Management Dennys GUTIERREZ 350.1.13.10 ity [facility] 4.2.7.2.686 [facility] [id number] [facility] [address] [place] 2022-02-17 2022-02-17 Outpatient R [facility] [id number] Univers 15:00:00 15:00:00 ity [facility] 2022-02-16 2022-02-16 Emergency X [facility] ERT [id number] Univers 12:01:00 17:40:00 RAVEN [facility] 2022-02-16 2022-02-16 Emergency [facility] [id number] Univers 12:01:00 17:40:00 Raven GUTIERREZ 350.1.13.10 i ty [facility] 4.2.7.2.686 [facility] [id number] [facility] [address] [place] 2022-02-10 2022-02-12 Inpatient X CHIQUIS KATE [facility] [id number] Univers 15:37:00 16:21:00 [facility]22-[facility]-10 2022-02-12 Hospital Eladia Conklin 1 .2.840.114 [id number] Univers 15:37:00 16:21:00 Encounter Chiquis Kate 350.1.13.10 ity [facility] 42.7.2.686 Dwayne as [id number] [facility] [address] 2022-02-11 2022-02-11 Anesthesia Nory Jiménez 1.2.840 .114 [id number] Univers 00:25:00 12:19:00 Event Martha Agarwal 350.1.13.10 ity [facility] 4.2.7.2.686 Dwayne as [id number] [facility] [address] 2022-02-11 2022-02-11 [facility] [id number] Univers 10:15:00 10:15:00 RADHA [facility] 2022-02-10 2022-02-10 Telephone Irma [facility] 1.2.840.114 [id number] Univers 00:00:00 00:00:00 Alma C 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10 ity of REGIONAL 4.2.7.2.686 Dwayne as MATERNAL [id number] [facility] & CHILD [address] [place] [address] 2022-02-07 2022-02-07 Orders Doctor COLT 1.2.840.114 [id number] Univers 00:00:00 00:00:00 Only Unassigned, STEPHANIA 350.1.13.10 ity of [place] 4.2.7.2.686 Dwayne as [id number] [address] 2022-02-06 2022-02-06 Outpatient Bryn SINGH [facility] [id number] Univers 13:30:00 14:32:26 KEVIN [facility] 2022-02-06 2022-02-06 Routine Risk, Nnq-Lpxqy-St/High [facility] 1. 2.840.114 [id number] Univers 13:30:00 14:32:26 Kevin Singh 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10 ity of Visit [facility] 4.2.7.2.686 Dwayne as MATERNAL [id number] [facility] & CHILD [address] [place] [address] 2022-02-03 2022-02-03 Outpatient R IRMA [facility] [id number] Univers 15:15:00 15:34:29 ALMA ity o f [facility] 2022-02-03 2022-02-03 [facility] 1.2.066.519 [id number] Univers 15:15:00 15:34:29 Alma Estevez 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10 ity of Visit [facility] 4.2.7.2.686 Dwayne as MATERNAL [id number] [facility] & CHILD [address] [place] [address] 2022-01-30 2022-01-30 Outpatient González LARA [facility] [id number] Univers 15:44:00 17:50:00 DENNYS ity [facility] 2022-01-30 2022-01-30 Emergency Areli Patel [facility] 1.2.8 40.114 [id number] Univers 15:44:00 17:50:00 Dennys Lara [place] 350.1.13.10 ity of [place] 4.2.7.2.686 [place] [facility] [id number] [address] 2022-01-29 2022-01-29 Outpatient R FARHAN [facility] [id number] Univers 14:45:00 15:15:50 [facility] 2022-01-29 2022-01-29 Routine Provider, Ember Kate [facility] 1 .2.840.114 [id number] Univers 14:45:00 15:15:50 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 10 ity of Visit [facility] 4.2.7.2.686 Dwayne as MATERNAL [id number] Med ical & CHILD [address] [place] [address] 2022-01-27 2022-01-27 Outpatient R IRMA, [facility] [id number] Univers 13:00:00 14:16:53 ALMA ity o [facility] 2022-01-27 2022-01-27 Routine Irma, [facility] 1.2.253.211 [id number] Univers 13:00:00 14:16:53 Alma Estevez 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10 ity of Visit [facility] 4.2.7.2.686 Dwayne as MATERNAL [id number] [facility] [address] [place] [address] 2022 2022 Outpatient R IRMA, [facility] [id number] Univers 15:00:00 15:51:27 ALMA ity o f [facility] 2022 2022 Routine Florindasiaure, [facility] 1.2.272.524 [id number] Univers 15:00:00 15:51:27 Alma Estevez 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10 ity of Visit REGIONAL 4.2.7.2.686 Dwayne as MATERNAL [id number] [facility] ical & CHILD [address] [place] [address] 2022-01-21 2022-01-21 Outpatient R FARHAN [facility] [id number] Univers 10:30:00 10:50:45 RADHA hammonds [facility] 2022-01-21 2022-01-21 Routine Provider, [facility] 1 .2.840.114 [id number] Univers 10:30:00 10:50:45 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 10 ity of Visit REGIONAL 4.2.7.2.686 Dwayne as MATERNAL [id number] [facility]ILD [address] [place] [address] 2022-01-16 2022-01-16 Outpatient Bryn SHARMA [facility] [id number] Univers 13:30:00 14:01:20 AMY hammonds [facility] 2022-01-16 2022-01-16 Routine Risk, Olb-Tpaby-Cs/High [facility] 1. 2.840.114 [id number] Univers 13:30:00 14:01:20 Amy Sharma 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10 ity of Visit REGIONAL 4.2.7.2.686 Dwayne as MATERNAL [id number] [facility] [address] [place] [address] 2022-01-15 2022-01-15 Telephone [facility] 1.2.840.114 [id number] Univers 00:00:00 00:00:00 Alma Estevez 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10 ity of REGIONAL 4.2.7.2.686 Dwayne as MATERNAL [phone] [facility] [place] ical & CHILD [address] [place] [address] 2022-01-13 2022-01-13 Outpatient Bryn NOBLES [facility] [id number] Univers 11:00:00 15:39:45 RADHA yolie [facility] 2022-01-13 2022-01-13 Routine Provider, [facility] 1 .2.840.114 [id number] Univers 11:00:00 11:15:00 RamonalivanRadha meeks Kel 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 10 ity of Visit REGIONAL 4.2.7.2.686 Dwayne as MATERNAL [phone] [facility] & CHILD [address] [place] [address] 2022-01-09 2022-01-09 Hardwood Floor Installation Helper Jenn [facility] Main [facility] 1.2.8 40.114 [id number] Univers 15:00:00 15:15:00 Visit Humphrey Alen Neal [place] 350.1 .13.10 ity of [place] 4.2.7.2.686 Dwaynea s PROFESSIO [phone] Ne [address] 2022-01-09 2022-01-09 Outpatient R FRANCISCO [facility] [id number] Univers 13:45:00 14:34:17 KEVIN ity [facility] 2022-01-09 2022-01-09 Routine Risk, Wdm-Ukkfr-Dh/High [facility] 1. 2.840.114 [id number] Univers 13:45:00 14:34:17 Alma Solis SUPERVISOR COLOR PASTE MIXING 350.1.13 .10 ity of Visit Kevin Singh [facility] 4.2.7.2.686 [place] MATERNAL [phone] [facility] & [address] 2022-01-07 2022-01-07 Telephone Risk, [facility] 1.2.896.516 [id number] Univers 00:00:00 00:00:00 Ang-Rmchp-N 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10 ity of p/High [facility] 4.2.7.2.686 Dwayne as MATERNAL [phone] [facility] & CHILD [address] [place] [address] 2022-01-06 2022-01-06 Outpatient R VIRA [facility] [id number] Univers 15:30:00 16:45:47 ROLY it y of NEAL Pickett [facility] 2022-01-06 2022-01-06 Telemedici Faculty, Reddy Leechp [facility] 1.2.840.114 [id number] Univers 15:30:00 16:45:47 ne Visit Vira Lowry Joseph SUPERVISOR [employer]OR PA[employer] MIXING 350.1 .13.10 ity of REGIONAL 4.2.7.2.686 Dwayne as MATERNAL [phone] [facility] & CHILD [address] [place] [address] 2022-01-06 2022-01-06 Routine Alma Solis [facility] 1.2.8 40.114 [id number] Univers 14:45:00 15:33:24 Nima Katzkel Bryn 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1 0 ity of Visit REGIONAL 4.2.7.2.686 Dwayne as MATERNAL [phone] [facility] & CHILD [address] [place] [address] 2022-01-03 2022-01-03 Orders Doctor COLT 1.2.840.114 [id number] Univers 00:00:00 00:00:00 Only Unassigned, STEPHANIA 350.1.13.10 ity of [place] [facility] 4.2.7.2.686 Dwayne as [phone] [address] 2022-01-02 2022-01-02 Outpatient R FRANCISCO [facility] [id number] Univers 13:30:00 15:00:16 KEVIN ity [facility] 2022-01-02 2022-01-02 Routine Risk, Qrz-Zeymb-Kn/High [facility] 1. 2.840.114 [id number] Univers 13:30:00 15:00:16 Kevin Singh 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10 ity of Visit REGIONAL 4.2.7.2.686 Dwayne as MATERNAL [phone] [facility] & CHILD [address] [place] [address] 2022-01-02 2022-01-02 Telephone [facility], [facility] 1.2.840.114 [id number] Univers 00:00:00 00:00:00 Alma Estevez 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10 ity of [facility] 4.2.7.2.686 Dwayne as MATERNAL [id number] [facility] & CHILD [address] [place] [address] 2021-12-30 2021-12-30 Routine Irma, [facility] 1.2.101.280 [id number] Univers 15:30:00 15:45:00 Alma C 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10 ity of Visit REGIONAL 4.2.7.2.686 Dwayne as MATERNAL [phone] [facility] & CHILD [address] [place] [address] 2021-12-30 2021-12-30 Outpatient [facility] [id number] Univers 15:30:00 15:30:00 ALMA ity o [facility] 2021-12-17 2021-12-17 Outpatient R AKINSIPE, [facility] [id number] Univers 14:00:00 15:10:22 ALMA ity o [facility] 2021-12-17 2021-12-[address] [facility] 1.2.035.904 [id number] Univers 14:00:00 15:10:22 Alma C 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10 ity of Visit REGIONAL 4.2.7.2.686 Dwayne as MATERNAL [phone] [facility] & CHILD [address] [place] [address] 2021-12-13 2021-12-13 Outpatient R [facility] [id number] Univers 09:15:00 09:15:00 ALMA ity o [facility] 2021-12-10 2021-12-[address] [facility] 1.2.840.114 [id number] Univers 00:00:00 00:00:00 Alma C 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10 ity of REGIONAL 4.2.7.2.686 Dwayne as MATERNAL [phone] [facility] & CHILD [address] [place] [address] 2021-12-05 2021-12-[address] [facility] 1.2.840.114 [id number] Univers 00:00:00 00:00:00 Alma C 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10 ity of REGIONAL 4.2.7.2.686 Dwayne as MATERNAL [phone] [facility] & CHILD [address] [place] [address] 2021-12-01 2021-12-01 Outpatient Sharon [facility] MARGOT [id number] Univers 14:52:00 18:22:00 RIZO ity [facility] 2021-12-01 2021-12-01 Hospital Polina COLT 1.2.818.308 [id number] Univers 14:52:00 18:22:00 Encounter Luke Rosibel STEPHANIA 350.1.13.10 ity [facility] 4.2.7.2.686 Dwayne as [phone] [facility] [address] 2021-11-30 2021-11-30 Emergency X [facility] ERT [id number] Univers 11:50:00 12:13:00 ARELI ity [facility] 2021-11-30 2021-11-30 Emergency [facility] 1.2.840.114 [id number] Univers 11:50:00 12:13:00 Areli GUTIERREZ 350.1.13.10 ity [facility] 4.2.7.2.686 [facility] [phone] [facility] [address] 2021-11-30 2021-11-30 Letter COLT Wyman 1.2.840.114 [id number] Univers 00:00:00 00:00:00 (Out) Vijaya CAT 350.1.13.10 it y [facility] 4.2.7.2.686 Dwayne as [phone] [facility] [address] 2021-11-29 2021-11-29 Hardwood Floor Installation Helper Ultrasound, [facility] 1.2 .840.114 [id number] Univers 15:15:00 16:00:00 Visit Trever Katz 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10 ity Zen Garcia [facility] 4.2.7.2.686 [place] MATERNAL [phone] Med ical & CHILD [address] [place] [address] 2021-11-29 2021-11-29 Outpatient P [facility] [id number] Univers 15:15:00 15:15:00 ity [facility] 2021-11-29 2021-11-29 Outpatient R GIANNA NHSONJA [facility] [id number] Univers 07:45:00 08:28:49 TREVER hammonds o f [facility] 2021-11-29 2021-11-29 Routine Gianna NHSONJA 1.2.840.114 [id number] Univers 07:45:00 08:28:49 Roshunda R 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10 ity of Visit REGIONAL 4.2.7.2.686 Dwayne as MATERNAL [phone] [facility] & [address] 2021-11-28 2021-11-28 Outpatient R [facility] [id number] Univers 14:45:00 14:45:00 ALMA ity o f [facility] 2021-11-19 2021-11-[address] [facility] 1.2.840.114 [id number] Univers 00:00:00 00:00:00 Alma C 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10 ity of REGIONAL 4.2.7.2.686 Dwayne as MATERNAL [phone] [address] 2021-11-12 2021-11-[address] [facility] 1.2.838.638 [id number] Univers 14:45:00 15:00:00 Alma C 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10 ity of Visit REGIONAL 4.2.7.2.686 Dwayne as MATERNAL [phone] [address] 2021-11-12 2021-11-12 [facility] [id number] Univers 14:45:00 14:45:00 ALMA hammonds o f [facility] 2021-11-04 2021-11-04 Telemedici Faculty, [facility] 1.2.840.114 [id number] Univers 15:00:00 15:30:00 ne Visit Anton Renteria 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10 ity of REGIONAL 4.2.7.2.686 Dwayne as MATERNAL [id number] [facility] & [address] 2021-11-04 2021-11-04 Outpatient P DEXTER [facility] [id number] Univers 15:00:00 15:00:00 ANTON hammonds o f [facility] 2021-10-28 2021-10-28 Outpatient P [facility] [id number] Univers 15:00:00 15:00:00 ity [facility] 2021-10-22 2021-10-22 Abstract [facility] 1.2.840.114 [id number] Univers 00:00:00 00:00:00 Alma C 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10 ity of REGIONAL 4.2.7.2.686 Dwayne as MATERNAL [phone] [facility] [place] ical & CHILD [address] [place] [address] 2021-10-17 2021-10-17 Hardwood Floor Installation Helper 1, [facility] Room [facility] 1.2. 840.114 [id number] Univers 14:15:00 16:36:19 Visit Abena Patel 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10 ity of REGIONAL 4.2.7.2.686 Dwayne as MATERNAL [phone] Med ical & CHILD [address] [place] [address] 2021-10-17 2021-10-17 Outpatient P JORGE [facility] [id number] Univers 14:15:00 14:15:00 ABENA [facility] 2021-10-15 2021-10-15 Outpatient R IRMA, [facility] [id number] Univers 13:00:00 13:45:11 ALMA braxton [facility] 2021-10-15 2021-10-15 Routine Irma, [facility] 1.2.958.095 [id number] Univers 13:00:00 13:45:11 Alma C 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10 ity of Visit REGIONAL 4.2.7.2.686 Dwayne as MATERNAL [phone] [facility] & CHILD [address] [place] [address] 2021-10-11 2021-10-11 Outpatient P [facility] [id number] Univers 14:15:00 14:[facility] 2021-10-07 2021-10-07 Outpatient R IRMA, [facility] [id number] Univers 12:45:00 13:37:44 ALMA hammonds o f [facility] 2021-10-07 2021-10-07 [facility] 1.2.312.252 [id number] Univers 12:45:00 13:37:44 Alma C 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10 ity of Visit REGIONAL 4.2.7.2.686 Dwayne as MATERNAL [phone] [facility] & CHILD [address] [place] [address] 2021-10-07 2021-10-07 Orders Doctor COLT 1.2.840.114 [id number] Univers 00:00:00 00:00:00 Only Unassigned, STEPHANIA 350.1.13.10 ity of [facility] 4.2.7.2.686 Dwayne as [id number] [address] 2021-10-03 2021-10-03 Outpatient [facility] [id number] Univers 16:00:00 16:00:00 ALMA braxton [facility] 2021-09-19 2021-09-19 Orders Doctor COLT 1.2.840.114 [id number] Univers 00:00:00 00:00:00 Only Unassigned, STEPHANIA 350.1.13.10 ity of [facility] 4.2.7.2.686 Dwayne as [phone] [address] 2021-09-05 2021-09-05 Outpatient [facility] [id number] Univers 15:30:00 16:02:29 ALMA braxton [facility] 2021-09-05 2021-09-[address] [facility] 1.2.260.936 [id number] Univers 15:30:00 16:02:29 Alma C 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10 ity of Visit REGIONAL 4.2.7.2.686 Dwayne as MATERNAL [phone] [facility] & CHILD [address] [place] [address] 2021-09-02 2021-09-02 Orders Doctor COLT 1.2.840.114 [id number] Univers 00:00:00 00:00:00 Only Unassigned, STEPHANIA 350.1.13.10 ity of [facility] 4.2.7.2.686 Dwayne as [phone] [address] 2021-08-19 2021-08-19 Outpatient R POLINA [facility] [id number] Univers 15:00:00 15:00:00 LUKE yolie [facility] 2021-08-19 2021-08-19 Hardwood Floor Installation Helper Lab, [facility] 1.2.840. 114 [id number] Univers 15:00:00 15:00:00 Visit Luke Fish 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10 ity of [facility] 4.2.7.2.686 Dwayne as MATERNAL [phone] [facility] [place] ical & CHILD [address] [place] [address] 2021-08-19 2021-08-19 Hardwood Floor Installation Helper 1, [facility] 1.2. 840.114 [id number] Univers 14:15:00 14:51:59 Visit Luke Fish 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10 ity of [facility] 4.2.7.2.686 Dwayne as MATERNAL [phone] [facility] & CHILD [address] [place] [address] 2021-08-19 2021-08-19 Outpatient P [facility] [id number] Univers 14:15:00 14:15:00 ity [facility] 2021-08-19 2021-08-19 Abstract [facility] 1.2.840.114 [id number] Univers 00:00:00 00:00:00 Alma Estevez 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10 ity of [facility] 4.2.7.2.686 Dwayne as MATERNAL [phone] Med ical & CHILD [address] [place] [address] 2021-08-08 2021-08-08 Outpatient R IRMA [facility] [id number] Univers 15:30:00 16:15:10 ALMA hammonds o f [facility] 2021-08-08 2021-08-08 Routine [facility] 1.2.410.509 [id number] Univers 15:30:00 16:15:10 Alma Estevez 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10 ity of Visit [facility] 4.2.7.2.686 Dwayne as MATERNAL [phone] [facility] & CHILD [address] [place] [address] 2021-08-08 2021-08-08 Outpatient R IRMA [facility] [id number] Univers 15:30:00 16:15:10 ALMA cassius o f [facility] 2021-08-08 2021-08-08 Outpatient [facility] [id number] Univers 15:30:00 15:30:00 ALMA hammonds o [facility] 2021-07-25 2021-07-25 Telephone [facility] 1.2.840.114 [id number] Univers 00:00:00 00:00:00 Alma Estevez 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10 ity of REGIONAL 4.2.7.2.686 Dwayne as MATERNAL [phone] [facility] & [address] 2021-07-19 2021-07-19 Orders Doctor COLT 1.2.840.114 [id number] Univers 00:00:00 00:00:00 Only Unassigned, STEPHANIA 350.1.13.10 ity of [place] [facility] 4.2.7.2.686 Dwayne as [phone] [address] 2021-07-18 2021-07-18 Outpatient R ZACHARY [facility] [id number] Univers 13:15:00 13:52:24 AMY hammonds [facility] 2021-07-18 2021-07-18 Routine Risk, Jlm-Wnnhv-Qu/High [facility] 1. 2.840.114 [id number] Univers 13:15:00 13:52:24 Amy Sharma 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10 ity of Visit REGIONAL 4.2.7.2.686 Dwayne as MATERNAL [phone] [address] 2021-07-11 2021-07-11 Outpatient R IRMA [facility] [id number] Univers 15:00:00 16:21:03 ALMA hammonds o [facility] 2021-07-11 2021-07-11 Initial [facility] 1.2.535.363 [id number] Univers 15:00:00 16:21:03 Alma Estevez 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10 ity of Visit [facility] 4.2.7.2.686 Dwayne as MATERNAL [phone] Med ical & CHILD [address] [place] [address] 2021-07-11 2021-07-11 Outpatient Bryn SOLIS [facility] [id number] Univers 15:00:00 16:21:03 ALMA garciay o f [facility] 2021-07-11 2021-07-11 Orders Doctor COLT 1.2.840.114 [id number] Univers 00:00:00 00:00:00 Only Unassigned, STEPHANIA 350.1.13.10 ity of [place] [facility] 4.2.7.2.686 Dwayne as [phone] [facility] [address] 2021-05-14 2021-05-14 Outpatient RICHARD DYKES [facility] [id number] Univers 10:40:00 10:40:00 RICHARD ANDERSON ityolie [facility] 2021-04-27 2021-04-27 Letter COLT Wyman 1.2.840.114 [id number] Univers 00:00:00 00:00:00 (Out) Vijaya CAT 350.1.13.10 it y of [place] [address].2.7.2.686 Dwayne as [phone] [facility] [address] 2021-04-26 2021-04-26 Emergency X [facility] ERT [id number] Univers 17:29:00 19:21:00 KIARRA hammonds [facility] 2021-04-26 2021-04-26 Emergency [facility] 1.2.840.114 [id number] Univers 17:29:00 19:21:00 [facility] 350.1.13.10 i ty [facility] 4.2.7.2.[place] [phone] [facility] [address] 2021-04-25 2021-04-25 Outpatient Bryn KENNEY [facility] [id number] Univers 09:45:00 09:54:55 ANGELO hammonds [facility] 2021-04-25 2021-04-25 Office [facility] 1.2.403.212 [id number] Univers 09:45:00 09:54:55 Visit Angelo [facility] 350.1.13.10 it y of [place] 4.2.7.2.686 Dwayne as JORGE?BLEA [phone] Ne anselmo GALLARDO [address] MEDICAL OFFICE BUILDING 2021-04-18 2021-04-18 Emergency X [facility] ERT [id number] Univers 12:29:00 15:20:00 BERTHA ity of [facility] 2021-04-18 2021-04-18 Emergency [facility] 1.2.209.556 [id number] Univers 12:29:00 15:20:00 Bertha S [place] 350.1.13.10 i ty of [place] 4.2.7.2.[place] [phone] [facility] [address] 2021-04-18 2021-04-18 Orders Doctor COLT 1.2.840.114 [id number] Univers 00:00:00 00:00:00 Only Unassigned, STEPHANIA 350.1.13.10 ity of [place] [facility] 4.2.7.2.686 Dwayne as [phone] [facility] [address] 2021-04-05 2021-04-05 Telephone [facility] 1.2.840.114 [id number] Univers 00:00:00 00:00:00 Alma Estevez 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10 ity of [facility] 4.2.7.2.686 Dwayne as MATERNAL [phone] Med ical & CHILD 107 [facility] 2021-03-22 2021-03-22 Refill Aditi [facility] 1.2.840.114 [id number] Univers 00:00:00 00:00:00 [facility] 350.1.13.10 ity of [place] 4.2.7.2.686 Dwayne as JORGE?BLEA [phone] Ne anselmo GALLARDO [address] MEDICAL OFFICE [facility] 2021-03-12 2021-03-12 Office Aditi [facility] 1.2.840.114 [id number] Univers 16:00:00 16:44:59 Visit [facility] 350.1.13.10 ity of [place] 4.2.7.2.686 Dwayne as JORGE?BLEA [phone] [address] 2021-03-12 2021-03-12 Outpatient RICHARD DYKES [facility] [id number] Univers 16:00:00 16:44:59 RICHARD ANDERSON yolie [facility] 2021-03-12 2021-03-12 Outpatient RICHARD DYKES [facility] [id number] Univers 16:00:00 16:00:00 RICHARD ANDERSON [facility] 2021-02-26 2021-02-26 Telephone Aditi [facility] 1.2.840.114 [id number] Univers 00:00:00 00:00:00 [facility] 350.1.13.10 ity of [place] 4.2.7.2.686 Dwayne as JORGE?BLEA [phone] [address] 2021-02-17 2021-02-17 Emergency X SALAS [facility] ERT [id number] Univers 18:01:00 22:48:00 ARMEN [facility] 2021-02-17 2021-02-17 Emergency Raven Goldsmith [facility] 1.2.840. 114 [id number] Univers 18:01:00 22:48:00 Claireyamiletlula Olenayong Pickett [place] 350.1.13.10 ity of [place] 4.2.7.2.686 [place] [id number] [facility] [address] [place] [address] 2021-01-11 2021-01-11 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 114 [id number] Univers 10:24:34 10:39:34 Visit Abena Patel 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10 ity of [facility] 4.2.7.2.686 Dwayne as MATERNAL [id number] Med ical & CHILD 107 [facility] 2021-01-11 2021-01-11 Outpatient Bryn PATEL [facility] [id number] Univers 10:30:00 10:30:00 ABENA hammonds [facility] 2020-12-21 2020-12-21 Telephone [facility] 1.2.840.114 [id number] Univers 00:00:00 00:00:00 Richard [facility] 350.1.13.10 ity of [place] 4.2.7.2.686 Dwayne as Jorge?Blea [phone] [address] Office [facility] 2020-12-18 2020-12-18 Outpatient R JORGE [facility] [id number] Univers 09:00:00 09:00:00 ABENA hammonds [facility] 2020-11-26 2020-11-26 Office [facility] 1.2.840.114 [id number] Univers 07:48:27 09:58:10 Visit [facility] 350.1.13.10 ity of [place] 4.2.7.2.686 Dwayne as Jorge?Blea [phone] [address] Office [facility] 2020-11-26 2020-11-26 Outpatient R RICHARD ANDERSON [facility] [id number] Univers 08:00:00 08:00:00 RICHARD ANDERSON [facility] 2020-11-26 2020-11-26 Letter Aditi [facility] 1.2.840.114 [id number] Univers 00:00:00 00:00:00 (Out) [facility] 350.1.13.10 ity of [place] 4.2.7.2.686 Dwayne as Jorge?Blea [phone] Ne anselmo gallardo [address] [place] [address] Office [facility] 2020-11-20 2020-11-20 Outpatient R RICHARD ANDERSON [facility] [id number] Univers 08:00:00 08:00:00 RICHARD ANDERSON [facility] 2020-11-14 2020-11-14 Telephone Aditi [facility] 1.2.840.114 [id number] Univers 00:00:00 00:00:00 [facility] 350.1.13.10 ity of [place]2.7.2.686 [place] Profess[place] [phone] Ne dical nal 092 [facility] 2020-11-01 2020-11-01 Outpatient R BRAD [facility] [id number] Univers 14:00:00 14:35:39 LILIANA hammonds [facility] 2020-11-01 2020-11-01 Office [facility] 1.2.840.114 [id number] Univers 13:43:12 14:35:39 Visit Liliana Evelin SPECIALTY 350.1.13.10 ity of CARE [id number] [facility] s CENTER AT [phone] Ne dicazalia BEDOYA 204 [facility] 2020-11-01 2020-11-01 Office [facility] 1.2.840.114 [id number] Univers 13:43:12 14:35:39 Visit Liliana Evelin SPECIALTY [id number] ity of CARE [id number] [facility] s [place] AT [phone] Ne anselmo BEDOYA 204 [facility] 2020-11-01 2020-11-01 Outpatient R BRAD [facility] [id number] Univers 14:00:00 14:00:00 LILIANA hammonds [facility] 2020-10-19 2020-10-19 Outpatient R RICHARD ANDERSON [facility] [id number] Univers 08:40:00 08:40:00 [facility]-18 2020-10-18 [facility] 1.2.840.114 [id number] Univers 12:54:28 23:59:00 Encounter Lauryn Gutierrez [id number] ity Gail Hannah [id number] [facility] [phone] [facility] tressa [address] 2020-10-18 2020-10-18 [facility] [id number] Univers 00:00:00 00:00:00 LAURYN pierce [facility] 2020-10-15 2020-10-15 [facility]phone [facility] 1.2.840.114 [id number] Univers 00:00:00 00:00:00 Abena N 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 it y of REGIONAL [id number] Dwayne as MATERNAL [phone] Med ical & CHILD [address] [place] [address] 2020-10-15 2020-10-15 Telephone DUANE Patel 1.2.840.114 [id number] 00:00:00 00:00:00 Abena N 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 REGIONAL [id number] MATERNAL [phone] & CHILD [address] [place] [address] 2020-10-12 2020-10-12 [facility]phone [facility] 1.2.840.114 [id number] [facility] 00:00:00 00:00:00 Abena N 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 it y of REGIONAL [id number] Dwayne as MATERNAL [phone] Med ical & CHILD [address] [place] [address] 2020-10-12 2020-10-12 Telephone Jorge [facility] 1.2.840.114 [id number] 00:00:00 00:00:00 Abena N 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10 REGIONAL 4.2.7.2.686 MATERNAL [phone] & CHILD [address] [place] [address] 2020-10-11 2020-10-11 [facility] JORGE NHSONJA [facility] [id number] [facility] 15:15:00 15:15:00 ABENA cassius [facility] 2020-10-11 2020-10-11 Telephone Jorge [facility] 1.2.840.114 [id number] [facility] 00:00:00 00:00:00 Abena N 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10 it y of REGIONAL 4.2.7.2.686 Dwayne as MATERNAL [phone] Med ical & CHILD [address] [place] [address] 2020-10-11 2020-10-11 Amelia Jorge [facility] 1.2.840.114 [id number] 00:00:00 00:00:00 Abena N 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10 REGIONAL 4.2.7.2.686 MATERNAL [phone] & CHILD [address] [place] [address] 2020-10-09 2020-10-09 Office [facility] 1.2.605.437 [id number] Univers 15:44:08 16:29:53 Visit Abena Camarillo 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10 it y of [facility] 4.2.7.2.686 Dwayne as MATERNAL [phone] [facility] & CHILD [address] [place] [address] 2020-10-09 2020-10-09 Office [facility] 1.2.386.001 [id number] 15:44:08 16:29:53 Visit Abena Camarillo 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10 REGIONAL 4.2.7.2.686 MATERNAL [phone] & CHILD [address] [place] [address] 2020-10-09 2020-10-09 [facility] [id number] Univers 15:45:00 15:45:00 ABENA cassius [facility] 2020-10-09 2020-10-09 Orders Doctor GREGORY 1.2.840.114 [id number] Univers 00:00:00 00:00:00 Only Unassigned, STEPHANIA 350.1.13.10 ity of [place] [facility] 4.2.7.2.686 Dwayne as [phone] [facility] [address] 2020-10-08 2020-10-08 Transition Julio Grant 1.2.840.114 [id number] Univers 00:00:00 00:00:00 of Care Mesfin Kel Guerrero 350.1.13.10 ity of [place]2.7.2.[place] [phone] [facility] [address] 2020-10-01 2020-10-05 [facility] Mary Rios 1.2.840.114 [id number] Univers 09:39:00 10:22:00 Encounter S Kosse 350.1.13.10 ity of [facility] 4.2.7.2.686 Dwayne as [phone] [facility] 0[address] 2020-10-01 2020-10-01 Outpatient R MARY RIOS [facility] [id number] Univers 08:30:00 08:30:00 ity of [facility] 2020-10-01 2020-10-01 Orders Doctor GREGORY 1.2.840.114 [id number] Univers 00:00:00 00:00:00 Only Unassigned, STEPHANIA 350.1.13.10 ity of [place] [facility] 4.2.7.2.686 Dwayne as [phone] [facility] [address] [place] 2020-09-30 2020-09-30 Orders Doctor COLT 1.2.840.114 [id number] Univers 00:00:00 00:00:00 Only Unassigned, STEPHANIA 350.1.13.10 ity of [place] [facility] 4.2.7.2.686 Dwayne as [phone] [address] 2020-09-28 2020-09-28 Outpatient R JORGE [facility] [id number] Univers 09:30:00 09:30:00 ABENA hammonds [facility] 2020-09-26 2020-09-26 Laboratory Only, Adc Test [facility] 1.2.840. 114 [id number] Univers 12:05:49 12:20:49 Only Mary Rios 350.1.13.10 ity of [place].2.7.2.[place] [phone] [place] [address] [address] 2020-09-26 2020-09-26 Outpatient R [facility] [id number] Univers 12:00:00 12:00:00 ity of [facility] 2020-09-26 2020-09-26 Orders Doctor GREGORY 1.2.840.114 [id number] Univers 00:00:00 00:00:00 Only Unassigned, STEPHANIA 350.1.13.10 ity of [place] [facility] 4.2.7.2.686 Dwayne as [phone] [address] 2020-09-21 2020-09-21 Outpatient R RICHARD ANDERSON [facility] [id number] Univers 10:00:00 10:00:00 RICHARD ANDERSON ityolie of [facility] 2020-09-14 2020-09-15 Emergency Glenis, TRAUMA 1.2.187.310 [id number] Univers 21:58:00 00:49:00 Cheo MOORE 350.1.13.10 ity of [place].2.[place] [phone] [facility] 014 [address] 2020-09-12 2020-09-13 Emergency Kwaku, K [facility] 1.2.840.114 [id number] Univers 19:41:00 00:37:00 uYlia Gutierrez 350.1.13.10 i ty of [place].2.7.2.[place] [phone] [facility] 084 [address] 2020-09-12 2020-09-12 Telephone Aditi, [facility] 1.2.840.114 [id number] Univers 00:00:00 00:00:00 Richard Gutierrez 350.1.13.10 ity of [place]2.7.2.[place] [facility] [phone] [facility] 092 Branch [facility] 2020-09-11 2020-09-11 Emergency , [facility] 1.2.582.441 [id number] Univers 20:23:00 22:08:00 Wong Gutierrez 350.1.13.10 i ty of [place] 4.2.7.2.686 [facility] [phone] [facility] [address] 2020-08-31 2020-08-31 Emergency Kwaku, K [facility] 1.2.840.114 [id number] Univers 11:19:00 13:58:00 Yuliakatherine Gutierrez 350.1.13.10 i ty of [place] 4.2.7.2.[place] [phone] [facility] [address] 2020-08-29 2020-08-29 Emergency Kwaku, K [facility] 1.2.840.114 [id number] Univers 20:48:00 23:11:00 Yulia Gutierrez 350.1.13.10 i ty of [place] 4.2.7.2.[place] [phone] [place] 491114 Branch 2020-06-07 2020-06-07 Office Irma, [facility] 1.2.749.411 [id number] Univers 10:50:31 11:18:03 Visit Alma Estevez 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10 ity of [facility] 4.2.7.2.686 Dwayne as MATERNAL [phone] Med ical & CHILD 107 [facility] 2020-06-07 2020-06-07 Outpatient R IRMA [facility] [id number] Univers 11:00:00 11:00:00 ALMA braxton f [facility] 2020-05-29 2020-05-29 Patient Alfred [facility] 1.2.840.114 [id number] Univers 00:00:00 00:00:00 Outreach Santosh AN 350.1.13.10 i ty of [facility] 4.2.7.2.686 [place] [phone] Ne dical [address] [place] 2020-05-13 2020-05-13 Emergency Peace Ames [facility] 1.2.840.114 [id number] Univers 19:12:00 21:45:00 Yulia Stuyvesant 350.1.13.10 i ty of [place] 4.2.7.2.[place] [phone] [facility] [address] [place] 2020-05-13 2020-05-13 Orders Doctor COLT 1.2.840.114 [id number] Univers 00:00:00 00:00:00 Only Unassigned, STEPHANIA 350.1.13.10 ity of [place] [facility] 4.2.7.2.686 Dwayne as [phone] [facility] [address] [place] 2020-01-19 2020-01-19 Telephone Visit, [facility] 1.2.280.177 [id number] Univers 00:00:00 00:00:00 [facility] 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10 ity of Nurse [facility] 4.2.7.2.686 Dwayne as MATERNAL [phone] [facility] [place] ical & CHILD [address] [place] [address] 2020-01-17 2020-01-17 Office [facility] 1.2.840.114 [id number] Univers 13:39:45 14:25:08 Visit Trever Clemente 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10 ity of [facility] 4.2.7.2.686 Dwayne as MATERNAL [phone] [facility] & CHILD [address] [place] [address] 2020-01-17 2020-01-17 [facility] [id number] Univers 13:45:00 13:45:00 EDWARDNDA ity o f [facility] 2020-01-16 2020-01-16 Telephone [facility] 1.2.195.277 [id number] Univers 00:00:00 00:00:00 Trever R 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10 ity of [facility] 4.2.7.2.686 Dwayne as MATERNAL [phone] [facility] [place] ical & CHILD [address] [place] [address] 2019-12-30 2019-12-30 [facility] 1.2 .840.114 [id number] Univers 10:22:21 10:37:21 Visit Abena Patel 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10 ity of [facility] 4.2.7.2.686 Dwayne as MATERNAL [phone] [facility] [place] ical & CHILD [address] [place] [address] 2019-12-30 2019-12-30 Outpatient R [facility] [id number] Univers 10:30:00 10:30:00 ity of [facility] 2019-12-21 2019-12-21 [facility] 1.2.449.594 [id number] Univers 00:00:00 00:00:00 Trever R 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10 ity of [facility] 4.2.7.2.686 Dwayne as MATERNAL [phone] [facility] [place] ical & CHILD [address] [place] [address] 2019-12-20 2019-12-20 Office [facility] 1.2.840.114 [id number] Univers 13:03:11 13:55:34 Visit Trever R 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10 ity of [facility] 4.2.7.2.686 Dwayne as MATERNAL [phone] [facility] & CHILD [address] [place] [address] 2019-12-20 2019-12-20 Outpatient [facility] [id number] Univers 12:45:00 12:45:00 EDWARDNDA ity o f [facility] 2019-10-24 2019-10-24 Telephone [facility] 1.2.840.114 [id number] Univers 00:00:00 00:00:00 Abena N 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10 it y of REGIONAL 4.2.7.2.686 Dwayne as MATERNAL [phone] [facility] & CHILD [address] [place] [address] 2019-10-17 2019-10-17 Outpatient R [facility] [id number] Univers 15:00:00 15:00:00 ity of [facility] 2019-09-28 2019-09-28 Telephone [facility] 1.2.840.114 [id number] Univers 00:00:00 00:00:00 Abena N 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10 it y of REGIONAL 4.2.7.2.686 [place]wayne as MATERNAL [phone] [facility] [place] ical & CHILD [address] [place] [address] 2019-09-27 2019-09-27 Office [facility] 1.2.712.825 [id number] Univers 14:03:06 14:59:44 Visit Abena Rabia 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10 it y of REGIONAL 4.2.7.2.686 [place] as MATERNAL [phone] Med ical & CHILD [address] [place] [address] 2019-09-27 2019-09-27 Outpatient R [facility] [id number] Univers 14:00:00 14:00:00 ABENA yolie [facility] 2019-08-26 2019-08-26 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 114 [id number] Univers 12:52:43 13:06:01 Visit Alma Solis 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 10 ity of [facility] 4.2.7.2.686 Dwayne as MATERNAL [phone] [facility] & CHILD [address] [place] [address] 2019-08-26 2019-08-26 Outpatient R IRMA [facility] [id number] Univers 13:00:00 13:00:00 ALMA pierce [facility] 2019-08-19 2019-08-19 Outpatient R [facility] [id number] Univers 13:00:00 13:00:00 ity of [facility] 2019-08-18 2019-08-18 Outpatient R [facility] [id number] Univers 13:00:00 13:00:00 ity of [facility] 2019-08-18 2019-08-18 Emergency X AGUS [facility] ERT [id number] Univers 08:24:15 11:52:00 RAVEN ityolie of [facility] 2019-08-18 2019-08-18 Emergency [facility] 1.2.010.356 [id number] Univers 08:24:15 11:52:00 Raven Stuy[place] 350.1.13.10 i ty of [place] 4.2.7.2.686 [facility] [phone] [address] 2019-08-18 2019-08-18 Orders Doctor COLT 1.2.840.114 [id number] Univers 00:00:00 00:00:00 Only Unassigned, STEPHANIA 350.1.13.10 ity of [place] [facility] 4.2.7.2.686 Dwayne as [phone] [address] 2019-07-31 2019-07-31 Telephone COLT Miramontes 1.2.450.061 [id number] Univers 00:00:00 00:00:00 Kevin CAT 350.1.13.10 i ty of [facility] 4.2.7.2.686 Dwayne as [phone] [facility] [address] [place] 2019-07-28 2019-07-29 Emergency X NICK [facility] ERT [id number] Univers 18:06:33 00:02:00 [facility] 2019-07-28 2019-07-29 Emergency [facility] 1.2.840.114 [id number] Univers 18:06:33 00:02:00 Tish [place]uy[place] 350.1.13.10 i ty of [place] 4.2.7.2.686 [place] [facility] [phone] [address] 2019-07-18 2019-07-18 Telemedici Irma [facility] 1.2.840.114 [id number] Univers 12:55:14 14:20:25 ne Visit Alma Estevez 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10 ity of [facility] 4.2.7.2.686 Dwayne as MATERNAL [phone] Med ical & CHILD [address] [place] [address] 2019-07-18 2019-07-18 Outpatient R IRMA [facility] [id number] Univers 14:00:00 14:00:00 ALMA hammonds o f [facility] 2019-06-27 2019-06-27 Outpatient R [facility] [id number] Univers 15:30:00 15:30:00 ity [facility] 2019-06-26 2019-06-26 Emergency X URBINA, [facility] ERT [id number] Univers 19:06:29 21:03:00 LORY ity [facility] 2019-06-26 2019-06-26 Emergency Urbina, [facility] 1.2.840.114 [id number] Univers 19:06:29 21:03:00 [facility] 350.1.13.10 ity of [place]2.7.2.686 [place] [phone] [address] ([facility]) 2019-06-26 2019-06-26 Telephone [facility] 1.2.840.114 [id number] Univers 00:00:00 00:00:00 Alma Estevez 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10 ity of REGIONAL 4.2.7.2.686 [place] as MATERNAL [phone] [facility] [address] [place] [address] 2019-06-24 2019-06-24 Outpatient R [facility] [id number] Univers 09:30:00 09:30:00 ity [facility] 2019-06-23 2019-06-23 Telemedici [facility] 1.2.840.114 [id number] Univers 12:57:38 15:49:57 ne Visit Alma Estevez 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10 ity of REGIONAL 4.2.7.2.686 [place]way[place] as MATERNAL [phone] [facility] & CHILD [address] [place] [address] 2019-06-23 2019-06-23 Outpatient [facility] [id number] Univers 15:30:00 15:30:00 ALMA hammonds o f [facility] 2019-06-22 2019-06-22 Outpatient [facility] [id number] Univers 13:30:00 13:30:00 ABENA ity [facility] 2019-06-22 2019-06-22 Telephone Visit, [facility] 1.2.062.321 [id number] Univers 00:00:00 00:00:00 [facility] 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10 ity of Nurse REGIONAL 4.2.7.2.686 [place]way[place] as MATERNAL [phone] Med ical & CHILD [address] [place] [address] 2019-06-22 2019-06-22 Refill Doctor [facility] 1.2.840.114 [id number] Univers 00:00:00 00:00:00 Unassigned, 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10 ity of [place] [facility] 4.2.7.2.686 Dwayne as MATERNAL [phone] Med ical & CHILD [address] [place] [address] 2019-06-21 2019-06-21 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 114 [id number] Univers 13:00:32 13:15:32 Visit Alma Solis 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 10 ity of [facility] 4.2.7.2.686 Dwayne as MATERNAL [phone] Med ical & CHILD [address] [place] [address] 2019-06-21 2019-06-21 Outpatient R IRMA [facility] [id number] Univers 10:30:00 10:30:00 ALMA hammonds o f [facility] 2019-06-21 2019-06-21 Telephone [facility] 1.2.840.114 [id number] Univers 00:00:00 00:00:00 Abena Camarillo 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10 it y of [facility] 4.2.7.2.686 Dwayne as MATERNAL [phone] Med ical & CHILD [address] [place] [address] 2019-06-20 2019-06-20 Telephone [facility] 1.2.840.114 [id number] Univers 00:00:00 00:00:00 Abena Camarillo 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10 it y of [facility] 4.2.7.2.686 Dwayne as MATERNAL [phone] Med ical & CHILD [address] [place] [address] 2019-06-10 2019-06-10 Telephone [facility] 1.2.840.114 [id number] Univers 00:00:00 00:00:00 Abena N 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10 it y of REGIONAL 4.2.7.2.686 [place] as MATERNAL [phone] [facility] [place] ical & CHILD [address] [place] [address] 2019-05-20 2019-05-20 Telephone [facility] 1.2.840.114 [id number] Univers 00:00:00 00:00:00 Abena N 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10 it y of REGIONAL 4.2.7.2.686 Dwayne as MATERNAL [phone] [facility] [place] ical & CHILD [address] [place] [address] 2019-05-19 2019-05-19 Telephone [facility] 1.2.840.114 [id number] Univers 00:00:00 00:00:00 Abena N 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10 it y of REGIONAL 4.2.7.2.686 Dwayne as MATERNAL [phone] [facility] & CHILD [address] [place] [address] 2019-05-17 2019-05-17 Office [facility] 1.2.831.765 [id number] Univers 13:24:09 13:50:08 Visit Abena Camarillo 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10 it y of [facility] 4.2.7.2.686 Dwayne as MATERNAL [phone] [facility] & [address] 2019-05-17 2019-05-17 Outpatient Bryn [facility] [id number] Univers 13:30:00 13:30:00 ABENA hammonds of [facility] 2019-05-06 2019-05-06 Outpatient R [facility] [id number] Univers 08:15:00 08:15:00 TREVER hammonds o f [facility] 2019-04-20 2019-04-20 Emergency Peace [place] [facility] 1.2.840.114 [id number] Univers 11:02:10 14:18:00 Yulia Stuyves[place] 350.1.13.10 i ty [facility] 4.2.7.2.686 [place] [phone] [address] 2019-03-29 2019-03-29 Telephone [facility] 1.2.693.081 [id number] Univers 00:00:00 00:00:00 Trever R 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10 ity of [facility] 4.2.7.2.686 Dwayne as MATERNAL [phone] [facility] & CHILD [address] [place] [address] 2019-03-22 2019-03-22 Telephone Gianna [facility] 1.2.712.630 [id number] Univers 00:00:00 00:00:00 Trever R 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10 ity of [facility] 4.2.7.2.686 Dwayne as MATERNAL [phone] [facility] & CHILD [address] [place] [address] 2019-03-21 2019-03-21 Office Gianna [facility] 1.2.840.114 [id number] [facility] 15:39:38 16:25:05 Visit Brittanisony Clemente 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10 ity of [facility] 4.2.7.2.686 Dwayne as MATERNAL [phone] [facility] & CHILD [address] [place] [address] Results Test Description Test Time Test Comments Results Result Comments Source Type and Screen - ONCE Routine 2022-02-16 20:36:00 Test Item Value Reference Range Interpretation Comme nts ABO & RH (test code = 20) O Negative Pe rformed at [facility] Laboratory [facility] Blood [place] [address]Toll Free: [phone] A No. [id number] IAT (test code = 1185) Positive Perfo rmed at [facility] Laboratory Services [facility] Blood [place] [address]Toll Free: [phone] A No. [id number] [facility] 19:33:27 Test Item Value Reference Range Interpretation Comments MAGNESIUM (test code = 7590492168) 2.0 mg/dL 1.7-2.4 Lab Interpretation (test code = Normal 44598-0) [facility] [id number] 19:16:05 Test Item Value Reference Interpretation Comments Range TROPONIN I (test 0.001 ng/mL See_Comment [Automated code = 5196343258) message] The system which generated this result transmitted reference range : <=0.034. The reference range was not used to interpret this result as normal/abnormal . MARCELLE (test code = Reference (Normal) MARCELLE) Range (defined by the 99th percentile reference limit): <= 0.034 ng/mL Note: Cardiac troponin begins to rise 3-4 hours after the onset of ischemia. Repeat in 4-6 hours if the sample was drawn within 3-4 hours of the onset of the symptom and found normal. Diagnosis of myocardial injury is made with acute changes in cTn concentrations with at least one serial sample above the 99th percentile upper reference limit (URL), taken together with the patient's clinical presentation. Biotin has been reported to cause a negative bias, interpret results relative to patient's use of biotin. Lab Interpretation Normal (test code = 20961-0) [facility] [id number] 19:13:04 Test Item Value Reference Range Interpretation Comments NT-proBNP (test code 189 pg/mL See_Comment H [Autom ated = 3448673232) message] The system which generated this result transmitted reference range : <=125. The reference range was not used to interpret this result as normal/abnormal . MARCELLE (test code = MARCELLE) Biotin has been reported to cause a negative bias, interpret results relative to patient's use of biotin. Lab Interpretation Abnormal (test code = 35366-0) [facility] METABOLIC PANEL (83779)2022-02-16 19:04:06 Test Item Value Reference Range Interpretation Comments NA (test code = 139 mmol/L 135-145 1835527869) K (test code = 4.0 mmol/L 3.5-5.0 2462917278) CL (test code = 110 mmol/L 98-108 H 9774652681) CO2 TOTAL (test code = 24 mmol/L 23-31 5766877954) AGAP (test code = 2-16 3546653281) BUN (test code = 10 mg/dL 7-23 6724970062) GLUCOSE (test code = 78 mg/dL 70-110 9608510252) CREATININE (test code = 0.49 mg/dL 0.50-1.04 L 6757236626) TOTAL BILI (test code = 0.3 mg/dL 0.1-1.9 9392984257) CALCIUM (test code = 8.7 mg/dL 8.6-10.6 0668645311) T PROTEIN (test code = 5.5 g/dL 6.3-8.2 L 8574064854) ALBUMIN (test code = 3.2 g/dL 3.5-5.0 L 2048009046) ALK PHOS (test code = 126 U/L 34-122 H 1624625808) ALTv (test code = 21 U/L 5-35 1742-6) AST(SGOT) (test code = 30 U/L 13-40 4737980056) eGFR (test code = mL/min/1.73m2 5212509539) MARCELLE (test code = MARCELLE) Association of [...] tests). Lab Interpretation Abnormal (test code = 12962-4) [facility] THRMPLAS [id number] 19:03:06 Test Item Value Reference Range Interpretation Comments APTT Patient (test See_Comment [Automat ed code = 3173-2) message] The system which generated this result transmitted reference range : 23 - 38 Seconds . The reference range was not used to interpr et this result as normal/abnormal . MARCELLE (test code = MARCELLE) The [facility] patient population mean normal value for aPTT is 30 seconds. Lab Interpretation Normal (test code = 66243-8) [facility] [id number] 19:01:04 Test Item Value Reference Range Interpretation Comments [...] tions. Lab Interpretation (test Normal code = 71831-2) [facility] [id number] 18:49:05 Test Item Value Reference Range Interpretation Comments WBC (test code = See_Comment [Automated 6690-2) message] The sy stem which generated this result transmitted reference range : 4.30 - 11.10 10*3/?L. The reference range was not used to interpret this result as normal/abnormal . RBC (test code = See_Comment L [Automated 399-8) message] The sy stem which generated this result transmitted reference range : 3.93 - 5.25 10*6/?L. The reference range was not used to interpret this result as normal/abnormal . HGB (test code = 9.7 g/dL 11.6-15.0 L 718-7) HCT (test code = 30.3 % 35.7-45.2 L 4544-3) MCV (test code = 88.1 fL 80.6-95.5 787-2) MCH (test code = 28.2 pg 25.9-32.8 785-6) MCHC (test code = 32.0 g/dL 31.6-35.1 786-4) RDW-SD (test code = 45.1 fL 39.0-49.9 33384-6) RDW-CV (test code = 14.1 % 12.0-15.5 788-0) PLT (test code = See_Comment [Automated 777-3) message] The sy stem which generated this result transmitted reference range : 166 - 358 10*3/ ?L. The reference r david was not used to interpret this result as normal/abnormal . MPV (test code = 10.4 fL 9.5-12.9 90230-6) NRBC/100 WBC (test See_Comment [Automat ed code = [id number]) message] The system which generated this result transmitted reference range : 0.0 - 10.0 /100 WBCs. The refer ence range was not u sed to interpret th is result as normal/abnormal . NRBC x10^3 (test code See_Comment [Auto mated = [id number]) message] The s ystem which generated this result transmitted reference range : 10*3/?L. The reference range was not used to interpret this result as normal/abnormal . GRAN MAT (NEUT) % 72.7 % (test code = 770-8) IMM GRAN % (test code 1.30 % = 2209571608) LYMPH % (test code = 16.8 % 736-9) MONO % (test code = 6.7 % 5905-5) EOS % (test code = 2.3 % 713-8) BASO % (test code = 0.2 % 706-2) GRAN MAT x10^3(ANC) 6.67 10*3/uL 1.88-7.09 (test code = 3422811925) IMM GRAN x10^3 (test 0.12 10*3/uL 0.00-0.06 H code = 7021093477) LYMPH x10^3 (test code 1.54 10*3/uL 1.32-3.29 = 731-0) MONO x10^3 (test code 0.61 10*3/uL 0.33-0.92 = 742-7) EOS x10^3 (test code = 0.21 10*3/uL 0.03-0.39 711-2) BASO x10^3 (test code 0.01-0.07 = 704-7) Lab Interpretation Abnormal (test code = 75267-7) [facility] [id number] 12:29:12 Test Item Value Reference Range Interpretation Comments SCREEN (test Negative Performed at [facility] code = 846) [facility] Blood [address] [place] [id number] Free: [phone] A No. [id number] RHIG REQUIRED? 1 Syringe baby rh posPe rformed at (test code = 1747) [facility] Labo ratory [facility] - [facility] Blood Ban k[address] [facility] s [address]Vbvg Free: [phone] A No. [id number] [facility] (D) IMMUNE [id number] 19:43:42 Test Item Value Reference Range Interpretation Comments RHIG CANDIDATE? (test Yes- see A Patien t is a code = 5055) comment candidate for RhIg- Patient i s Rh Negative and baby is Rh Positive.Perfor me d at [facility] Laboratory [facility] Blood [address] [address]Yofn Free: [phone] A No. [id number] Lab Interpretation Abnormal (test code = 30786-9) [facility] CORD [id number] 17:18:47 Test Item Value Reference Range Interpretation Comments BASE EXCESS, CORD mEq/L QUES (test code = 9329941070) AC PH, CORD (BEAKER) 7.18-7.38 (test code = 1661579265) PC02, CORD (test code See_Comment [Auto mated message] The = 8990942450) system which g enerated this result transmit con reference range : 32 - 66 mmHg. The refer ence range was not used to interpret this result as normal/abnormal . PO2, CORD (test code See_Comment [Autom ated message] The = 1173208630) system which g enerated this result transmit con reference range : 10 - 30 mmHg. The refer ence range was not used to interpret this result as normal/abnormal . BICARBONATE, CORD See_Comment [Automate d message] The (test code = system which ge nerated this 3482329546) result transmit con reference range : 17 - 27 mEq/L. The refe rence range was not used to interpret this result as normal/abnormal . [facility] [id number] 17:17:10 Test Item Value Reference Range Interpretation Comments VENOUS BASE EXCESS, mEq/L CORD (test code = 9111380444) VENOUS PH, CORD (test 7.25-7.45 code = 4667468138) VENOUS PC02, CORD See_Comment [Automate d message] The (test code = system which ge nerated 3164339678) this result tra nsmitted reference range : 27 - 49 mmHg. The refer ence range was not used to interpret this result as normal/abnormal . VENOUS PO2, CORD (test See_Comment [Aut omated message] The code = 0290506194) system [facility] generated this result tra nsmitted reference range : 17 - 41 mmHg. The refer ence range was not used to interpret this result as normal/abnormal . VENOUS BICARBONATE, See_Comment QUES [Au tomated message] CORD (test code = The system which generated 9711036379) this result tra nsmitted reference range : 12 - 29 mEq/L. The refe rence range was not used to interpret this result as normal/abnormal . [facility] ONLY - SYPHILIS [id number] 17:00:56 Test Item Value Reference Range Interpretation Comments Syphilis IgG/IgM (test Non-reactive Non-reactive code = 38848-7) MARCELLE (test code = MARCELLE) Non-reactive - No serologic evidence of T. pallidum infection. Cannot exclude incubating or early syphilis. Submit a second specimen in 2-4 weeks if syphilis is clinically suspected. Equivocal - Further testing to follow. Reactive - Further testing to follow. Lab Interpretation (test Normal code = 74412-4) [facility] 1/2 AG-AB WITH [id number] 02:53:04 Test Item Value Reference Range Interpretation Comments HIV Negative Negative Semi-quantitative (test code = 04716-6) MARCELLE (test code = Non-reactive for HIV-1 MARCELLE) antigen and HIV-1/HIV-2 antibodies. ?No laboratory evidence of HIV infection. ?Repeat in 2-4 weeks if acute HIV infection is suspected. [facility] Screen - ONCE [id number] 01:21:03 Test Item Value Reference Range Interpretation Comments ABO & RH (test code O NEGATIVE Performe d at [facility] = 20) Laboratory Serv [facility] Blood [facility]3 [address] [facility] s [address]Evhz Free: [phone] A No. [id number] IAT (test code = Positive Performed a t [facility] 1185) Laboratory Serv [facility] Blood [facility]3 [address] [facility] s [address]Rxek Free: [phone] A No. [id number] [facility] HospitalANTI-D R/O [id number] 01:21:03 Test Item Value Reference Range Interpretation Comments ANTIBODY (test Anti-D Probable RHIG given on code = 683) RhIg 01/02/22Perform ed at [facility] Cfbn123 [facility] s [address]Bmci Free: [phone] A No. [id number] [facility] HospitalHepatitis B Surface [id number] 00:41:53 Test Item Value Reference Range Interpretation Comments HBsAg Semi-Quantitative (test code = Negative Negative 5195-3) [facility] HospitalCB with [id number] 23:41:21 Test Item Value Reference Range Interpretation Comments WBC (test code = See_Comment [Automated 2133-2) message] The sy stem which generated this [...] as normal/abnormal . HGB (test code = 11.0 g/dL 11.6-15.0 L 718-7) HCT (test code = 34.0 % 35.7-45.2 L 4544-3) MCV (test code = 84.8 fL 80.6-95.5 787-2) MCH (test code = 27.4 pg 25.9-32.8 785-6) MCHC (test code = 32.4 g/dL 31.6-35.1 786-4) RDW-SD (test code = 43.6 fL 39.0-49.9 61020-4) RDW-CV (test code = 14.1 % 12.0-15.5 788-0) PLT (test code = See_Comment [Automated 777-3) message] The sy stem which generated this result transmitted reference range : 166 - 358 10*3/ ?L. The reference r david was not used to interpret this result as normal/abnormal . MPV (test code = 10.8 fL 9.5-12.9 72502-0) NRBC/100 WBC (test See_Comment [Automat ed code = 3201437006) message] The system which generated this result transmitted reference range : 0.0 - 10.0 /100 WBCs. The refer ence range was not u sed to interpret th is result as normal/abnormal . NRBC x10^3 (test code See_Comment [Auto mated = 5226257338) message] The s ystem which generated this result transmitted reference range : 10*3/?L. The reference range was not used to interpret this result as normal/abnormal . GRAN MAT (NEUT) % 64.7 % (test code = 770-8) IMM GRAN % (test code 1.20 % = 7351990009) LYMPH % (test code = 25.1 % 736-9) MONO % (test code = 7.4 % 5905-5) EOS % (test code = 1.3 % 713-8) BASO % (test code = 0.3 % 706-2) GRAN MAT x10^3(ANC) 6.10 10*3/uL 1.88-7.09 (test code = 5271493690) IMM GRAN x10^3 (test 0.11 10*3/uL 0.00-0.06 H code = 3784080687) LYMPH x10^3 (test code 2.36 10*3/uL 1.32-3.29 = 731-0) MONO x10^3 (test code 0.70 10*3/uL 0.33-0.92 = 742-7) EOS x10^3 (test code = 0.12 10*3/uL 0.03-0.39 711-2) BASO x10^3 (test code 0.03 10*3/uL 0.01-0.07 = 704-7) Lab Interpretation Abnormal (test code = 79396-7) [facility] URINALYSIS W SPECIFIC [id number] 20:06:00 Test Item Value Reference Range Interpretation Comments POCT U SP GRAV (test code = . 1.005-1.025 3255) POCT PH U (test code = 3254) 7 mg/dl 5-8 POCT U LEUK EST (test code = 1+ Negative - Negative 3263) POCT U NIT [...] POCT U BLD (test code = 3257) trace Negative - Negative POCT U COLOR (test code = 3266) POCT U APPEAR (test code = 3267) [facility] URINALYSIS W SPECIFIC [id number] 22:20:00 Test Item Value Reference Range Interpretation Comments [...] U APPEAR (test code = 3267) . [facility] - ONCE [id number] 23:17:31 Test Item Value Reference Range Interpretation Comments ABO & RH (test code O Negative Performe d at [facility] = 20) Laboratory Serv [facility] Blood Bank[address] [place], [place] [address]Toll Free: [phone] A No. [id number] IAT (test code = Positive Performed a t [facility] 1185) Laboratory Serv [facility] Blood Bank[address] [place], [place] [address]Toll Free: [phone] A No. [id number] [facility] HospitalCBC WITH [id number] 05:45:31 Test Item Value Reference Range Interpretation Comments WBC (test code = See_Comment [Automated 8991-2) message] The sy stem which generated this result transmitted reference range : 4.30 - 11.10 10*3/?L. The reference range was not used to interpret this result as normal/abnormal . RBC (test code = See_Comment [Automated 426-8) message] The sy stem which generated this result transmitted reference range : 3.93 - 5.25 10*6/?L. The reference range was not used to interpret this result as normal/abnormal . HGB (test code = 11.2 g/dL 11.6-15.0 L 718-7) HCT (test code = 35.0 % 35.7-45.2 L 4544-3) MCV (test code = 86.4 fL 80.6-95.5 787-2) MCH (test code = 27.7 pg 25.9-32.8 785-6) MCHC (test code = 32.0 g/dL 31.6-35.1 786-4) RDW-SD (test code = 43.4 fL 39.0-49.9 71103-9) RDW-CV (test code = 13.9 % 12.0-15.5 788-0) PLT (test code = See_Comment [Automated 567-3) message] The sy stem which generated this result transmitted reference range : 166 - 358 10*3/ ?L. The reference r david was not used to interpret this result as normal/abnormal . MPV (test code = 11.2 fL 9.5-12.9 84249-6) NRBC/100 WBC (test See_Comment [Automat ed code = 5028422085) message] The system which generated this result transmitted reference range : 0.0 - 10.0 /100 WBCs. The refer ence range was not u sed to interpret th is result as normal/abnormal . NRBC x10^3 (test code See_Comment [Auto mated = 3584777509) message] The s ystem which generated this result transmitted reference range : 10*3/?L. The reference range was not used to interpret this result as normal/abnormal . GRAN MAT (NEUT) % 67.3 % (test code = 770-8) IMM GRAN % (test code 1.00 % = 6622586613) LYMPH % (test code = 23.3 % 736-9) MONO % (test code = 7.1 % 5905-5) EOS % (test code = 1.0 % 713-8) BASO % (test code = 0.3 % 706-2) GRAN MAT x10^3(ANC) 5.85 10*3/uL 1.88-7.09 (test code = 1155440839) IMM GRAN x10^3 (test 0.09 10*3/uL 0.00-0.06 H code = 5648155250) LYMPH x10^3 (test code 2.03 10*3/uL 1.32-3.29 = 731-0) MONO x10^3 (test code 0.62 10*3/uL 0.33-0.92 = 742-7) EOS x10^3 (test code = 0.09 10*3/uL 0.03-0.39 711-2) BASO x10^3 (test code 0.03 10*3/uL 0.01-0.07 = 704-7) Lab Interpretation Abnormal (test code = 89246-3) [facility] WITH [id number] 05:45:31 Test Item Value Reference Range Interpretation Comments [...] as normal/abnormal . HGB (test code = 11.2 g/dL 11.6-15.0 L 718-7) HCT (test code = 35.0 % 35.7-45.2 L 4544-3) MCV (test code = 86.4 fL 80.6-95.5 787-2) MCH (test code = 27.7 pg 25.9-32.8 785-6) MCHC (test code = 32.0 g/dL 31.6-35.1 786-4) RDW-SD (test code = 43.4 fL 39.0-49.9 75787-0) RDW-CV (test code = 13.9 % 12.0-15.5 788-0) PLT (test code = See_Comment [Automated 777-3) message] The sy stem which generated this result transmitted reference range : 166 - 358 10*3/ ?L. The reference r david was not used to interpret this result as normal/abnormal . MPV (test code = 11.2 fL 9.5-12.9 14113-6) NRBC/100 WBC (test See_Comment [Automat ed code = 2638984474) message] The system which generated this result transmitted reference range : 0.0 - 10.0 /100 WBCs. The refer ence range was not u sed to interpret th is result as normal/abnormal . NRBC x10^3 (test code See_Comment [Auto mated = 6104211406) message] The s ystem which generated this result transmitted reference range : 10*3/?L. The reference range was not used to interpret this result as normal/abnormal . GRAN MAT (NEUT) % 67.3 % (test code = 770-8) IMM GRAN % (test code 1.00 % = 2712197114) LYMPH % (test code = 23.3 % 736-9) MONO % (test code = 7.1 % 5905-5) EOS % (test code = 1.0 % 713-8) BASO % (test code = 0.3 % 706-2) GRAN MAT x10^3(ANC) 5.85 10*3/uL 1.88-7.09 (test code = 7736934753) IMM GRAN x10^3 (test 0.09 10*3/uL 0.00-0.06 H code = 8268284594) LYMPH x10^3 (test code 2.03 10*3/uL 1.32-3.29 = 731-0) MONO x10^3 (test code 0.62 10*3/uL 0.33-0.92 = 742-7) EOS x10^3 (test code = 0.09 10*3/uL 0.03-0.39 711-2) BASO x10^3 (test code 0.03 10*3/uL 0.01-0.07 = 704-7) Lab Interpretation Abnormal (test code = 15734-9) [facility] URINALYSIS W SPECIFIC [id number] 20:37:00 Test Item Value Reference Range Interpretation Comments [...] U APPEAR (test code = 3267) clear [facility] URINALYSIS W SPECIFIC [id number] 20:37:00 Test Item Value Reference Range Interpretation Comments [...] U APPEAR (test code = 3267) clear [facility] URINALYSIS W SPECIFIC [id number] 20:37:00 Test Item Value Reference Range Interpretation Comments [...] U APPEAR (test code = 3267) clear [facility] URINALYSIS W SPECIFIC [id number] 19:00:00 Test Item Value Reference Range Interpretation Comments [...] U APPEAR (test code = 3267) . [facility] URINALYSIS W SPECIFIC [id number] 21:06:00 Test Item Value Reference Range Interpretation Comments [...] POCT U GLU (test code = 3256) normal Negative - Negative POCT U KETONE (test code = 3258) . Negative - Negative POCT U UROBILI (test code = 3260) . 0.2-1 POCT U BILI (test code = 3261) . Negative - Negative POCT U BLD (test code = 3257) . Negative - Negative POCT U COLOR (test code = 3266) yellow POCT U APPEAR (test code = 3267) clear [facility] URINALYSIS W SPECIFIC [id number] 16:34:00 Test Item Value Reference Range Interpretation Comments POCT U SP GRAV (test code = 3255) . 1.005-1.025 POCT PH U (test code = 3254) 7 mg/dl 5-8 POCT U LEUK EST (test code = - Negative - Negative 3263) POCT U NIT [...] U APPEAR (test code = 3267) clear [facility] URINALYSIS W SPECIFIC [id number] 17:00:00 Test Item Value Reference Range Interpretation [...] U APPEAR (test code = 3267) cloudy [facility] URINALYSIS W SPECIFIC [id number] 18:51:00 Test Item Value Reference Range Interpretation [...] 3267) Lab Interpretation (test code = Abnormal 86429-6) [facility] URINALYSIS W SPECIFIC [id number] 19:16:00 Test Item Value Reference Range Interpretation [...] POCT U APPEAR (test code = 3267) [facility] URINALYSIS W SPECIFIC [id number] 18:26:00 Test Item Value Reference Range Interpretation [...] clear Lab Interpretation (test code = Normal 28159-6) [facility] URINALYSIS W SPECIFIC [id number] 20:47:00 Test Item Value Reference Range Interpretation [...] POCT U APPEAR (test code = 3267) [facility] URINALYSIS W SPECIFIC [id number] 19:47:00 Test Item Value Reference Range Interpretation [...] POCT U APPEAR (test code = 3267) [facility] URINALYSIS W SPECIFIC [id number] 19:47:00 Test Item Value Reference Range Interpretation [...] POCT U APPEAR (test code = 3267) [facility] URINALYSIS W SPECIFIC [id number] 13:14:00 Test Item Value Reference Range Interpretation [...] U APPEAR (test code = 3267) . [facility] URINALYSIS W SPECIFIC [id number] 13:14:00 Test Item Value Reference Range Interpretation [...] U APPEAR (test code = 3267) . [facility] URINALYSIS W SPECIFIC [id number] 13:14:00 Test Item Value Reference Range Interpretation [...] U APPEAR (test code = 3267) . [facility] URINALYSIS W SPECIFIC [id number] 13:14:00 Test Item Value Reference Range Interpretation [...] U APPEAR (test code = 3267) . [facility] URINALYSIS W SPECIFIC [id number] 13:14:00 Test Item Value Reference Range Interpretation [...] U APPEAR (test code = 3267) . [facility] URINALYSIS W SPECIFIC [id number] 13:14:00 Test Item Value Reference Range Interpretation [...] U APPEAR (test code = 3267) . [facility] URINALYSIS W SPECIFIC [id number] 13:14:00 Test Item Value Reference Range Interpretation [...] U APPEAR (test code = 3267) . [facility] URINALYSIS W SPECIFIC [id number] 13:14:00 Test Item Value Reference Range Interpretation [...] U APPEAR (test code = 3267) . [facility] URINALYSIS W SPECIFIC [id number] 13:14:00 Test Item Value Reference Range Interpretation [...] U APPEAR (test code = 3267) . [facility] [id number] 18:22:00 Test Item Value Reference Range Interpretation Comments LITHIUM LEVEL (BEAKER) 0.8 mmol/L 0.8-1.2 (test code = 630) SCAN RESULT (test code = See Scanned Report [id number]) [place], [id number] 14:13:01Reason for exam:->abnormal [facility] : 1995 Sex: FFluoroscopic unit utilized for a procedure performed in the OR. No interpretation was requested. Refer to the operative report for findings. Refer to PACS for patient radiation dose information.COMPREHENSIVE METABOLIC [id number] 06:43:00 Test Item Value Reference Range Interpretation [...] S NOT APPLICABLE FOR DIALYSIS PATIEN TS. Computer Software Engineer ID - [facility] (HEMOGRAM ONLY)2020-09-24 06:04:00 Test Item Value Reference [...] (BEAKER) (test code = 413) COMPREHENSIVE METABOLIC [id number] 07:06:00 Test Item Value Reference Range Interpretation [...] S NOT APPLICABLE FOR DIALYSIS PATIEN TS. Computer Software Engineer ID - PIAYA [facility] (HEMOGRAM ONLY)2020-09-23 06:47:00 [...] (BEAKER) (test code = 413) COMPREHENSIVE METABOLIC [id number] 08:27:00 Test Item Value Reference Range Interpretation [...] S NOT APPLICABLE FOR DIALYSIS PATIEN TS. Computer Software Engineer ID - MADISON [id number] 08:27:00 Test Item Value Reference Range Interpretation Comments MAGNESIUM (BEAKER) (test code = 2.4 mg/dL 1.6-2.6 627) Computer Software Engineer ID - MADISON MPROTHROMBIN TIME/[id number] 07:59:00 Test Item Value Reference Range Interpretation Comments PROTIME (BEAKER) 13.0 seconds 11.9-14.2 (test code = 759) INR (BEAKER) (test 1.00 See_Comment [Automat ed message] code = 370) The system [employer] generated this result transmitted ref erence range: <=5.90. The reference range was not used to int erpret this result as normal/abnormal . RECOMMENDED COUMADIN/WARFARIN INR THERAPY RANGESSTANDARD DOSE: 2.0 - 3.0 Includes: PROPHYLAXIS for venous thrombosis, systemic embolization; TREATMENT for venous thrombosis and/or pulmonary embolus.HIGH RISK: Target INR is 2.5-3.5 for patients with mechanical heart valves.CBC W/PLT COUNT & AUTO [id number] 07:49:00 Test Item Value Reference Range Interpretation [...] 0-1 H PERCENT (BEAKER) (test code = 5559)"
[2022-04-20] MEDS ORDERED: IBUPROFEN 400 MG TAB ONE (07:29)
[2022-04-20] MEDS ORDERED: IBUPROFEN 200 MG TAB PO ONE (07:29)
--- NOTE | 2022-04-20 08:05 | EDPHYS ---
Physician Documentation [facility] Name: Mile Wang Age: 27 yrs Sex: Female : 1995 Arrival Date: 04/20/2022 Time: 07:12 Bed 14 Private MD: Zen Coon HPI: 04/20 07:57 This 27 yrs old Female presents to ER via Wheelchair with complaints of Ankle joe Injury. 07:57 The patient presents with decreased range of motion, an injury, pain. The complaints joe affect the left ankle, left medial malleolus and instep of left foot. Historical: - Allergies: 07:19 Doxycycline; ll1 07:19 Macrobid; ll1 07:19 tramadol; ll1 07:19 Vimpat; ll1 - PMHx: 07:19 angina pectoris; Anxiety; Bipolar disorder; Psychogenic Seizures; Seizures; stent in ll1 gallbladder; - PSHx: 07:19 Cholecystectomy; Tonsillectomy; ll1 - Immunization history:: Client reports receiving the 2nd dose of the Covid vaccine. - Social history:: Smoking status: Patient denies any tobacco usage or history of. - Family history:: not pertinent. ROS: 07:57 Constitutional: Negative for fever, chills, and weight loss, Eyes: Negative for injury, joe pain, redness, and discharge, ENT: Negative for injury, pain, and discharge, Neck: Negative for injury, pain, and swelling, Cardiovascular: Negative for chest pain, palpitations, and edema, Respiratory: Negative for shortness of breath, cough, wheezing, and pleuritic chest pain, Abdomen/GI: Negative for abdominal pain, nausea, vomiting, diarrhea, and constipation, Back: Negative for injury and pain, : Negative for injury, bleeding, discharge, and swelling, Skin: Negative for injury, rash, and discoloration, Neuro: Negative for headache, weakness, numbness, tingling, and seizure, Psych: Negative for depression, anxiety, suicide ideation, homicidal ideation, and hallucinations, Allergy/Immunology: Negative for hives, rash, and allergies, Endocrine: Negative for neck swelling, polydipsia, polyuria, polyphagia, and marked weight changes, Hematologic/Lymphatic: Negative for swollen nodes, abnormal bleeding, and unusual bruising. 07:57 MS/extremity: Positive for injury or acute deformity, decreased range of motion, pain, tenderness, of the left medial malleolus. Exam: 07:57 Constitutional: This is a well developed, well nourished patient who is awake, alert, joe and in no acute distress. Head/Face: Normocephalic, atraumatic. Eyes: Pupils equal round and reactive to light, extra-ocular motions intact. Lids and lashes normal. Conjunctiva and sclera are non-icteric and not injected. Cornea within normal limits. Periorbital areas with no swelling, redness, or edema. ENT: Nares patent. No nasal discharge, no septal abnormalities noted. Tympanic membranes are normal and external auditory canals are clear. Oropharynx with no redness, swelling, or masses, exudates, or evidence of obstruction, uvula midline. Mucous membranes moist. Neck: Trachea midline, no thyromegaly or masses palpated, and no cervical lymphadenopathy. Supple, full range of motion without nuchal rigidity, or vertebral point tenderness. No Meningismus. Chest/axilla: Normal chest wall appearance and motion. Nontender with no deformity. No lesions are appreciated. Cardiovascular: Regular rate and rhythm with a normal S1 and S2. No gallops, murmurs, or rubs. Normal PMI, no JVD. No pulse deficits. Respiratory: Lungs have equal breath sounds bilaterally, clear to auscultation and percussion. No rales, rhonchi or wheezes noted. No increased work of breathing, no retractions or nasal flaring. Abdomen/GI: Soft, non-tender, with normal bowel sounds. No distension or tympany. No guarding or rebound. No evidence of tenderness throughout. Back: No spinal tenderness. No costovertebral tenderness. Full range of motion. Skin: Warm, dry with normal turgor. Normal color with no rashes, no lesions, and no evidence of cellulitis. Neuro: Awake and alert, GCS 15, oriented to person, place, time, and situation. Cranial nerves II-XII grossly intact. Motor strength 5/5 in all extremities. Sensory grossly intact. Cerebellar exam normal. Normal gait. Psych: Awake, alert, with orientation to person, place and time. Behavior, mood, and affect are within normal limits. 07:57 Musculoskeletal/extremity: Extremities: all appear grossly normal, with no appreciated pain with palpation, grossly normal except: noted in the left lateral malleolus, left medial malleolus and instep of left foot: decreased ROM, pain, tenderness. Vital Signs: 07:19 Resp 17; Temp 98.0; Weight 86.18 kg; Height 5 ft. 4 in. (162.56 cm); Pain 9/10; ll1 07:21 BP 132 / 99; Pulse 85; Resp 18; Pulse Ox 96% on R/A; ko1 07:19 Body Mass Index 32.61 (86.18 kg, 162.56 cm) ll1 MDM: 07:14 Patient medically screened. joe 07:57 Differential diagnosis: fracture, sprain. Data reviewed: vital signs, nurses notes, [facility] radiologic studies, plain films. Consideration of Admission/Observation Patient was admitted/placed on observation. Escalation of care including admission/observation considered. I considered the following discharge prescriptions or medication management in the emergency department Medications were administered in the Emergency Department. See MAR. Test considered but Not performed: CT: no ct foot and ankle. Care significantly affected by the following chronic conditions: psych , anxiety , bipolar. 04/20 07:21 Order name: Ankle Left 3 View XRAY [facility] 04/20 07:21 Order name: Foot Left 3 View XRAY [facility] 04/20 07:21 Order name: Ice pack; Complete Time: 07:27 [facility] 04/20 08:08 Order name: RAD EDMS 04/20 08:08 Order name: RAD EDMS 04/20 08:02 Order name: Walking boot; Complete Time: 08:32 joe Administered Medications: 07:27 Drug: Motrin (ibuprofen) 600 mg Route: PO; ko1 Disposition Summary: 04/20/22 08:04 Discharge Ordered Location: Home joe Problem: new joe Symptoms: have improved joe Condition: Stable joe Diagnosis - Sprain of foot joe - Sprain of deltoid ligament of left ankle jeo - Sprain of ankle joe - Fall (on) (from) other stairs and steps joe Followup: joe - With: Private Physician - When: 2 - 3 days - Reason: Recheck today's complaints, Continuance of care, Re-evaluation by your physician Followup: joe - With: Bob Evans MD - When: 2 - 3 days - Reason: Recheck today's complaints, Continuance of care, Re-evaluation by your physician Discharge Instructions: - Discharge Summary Sheet joe - Ankle Sprain joe - Foot Sprain joe - Ankle Sprain, [id number] joe Forms: - Medication Reconciliation Form joe - Thank You Letter joe - Antibiotic Education joe - Prescription Opioid Use joe - Work release form ko1 Prescriptions: - Ibuprofen 600 mg Oral Tablet - take 1 tablet by ORAL route every 6 hours As needed take with food; 30 tablet; joe Refills: 0, Product Selection Permitted Signatures: Dispatcher [employer] EDZen Aldana MD MD cha Lewis, Lynsay, RN RN ll1 Mikayla Clemons RN RN ko1 Corrections: (The following items were deleted from the chart) 08:02 07:21 Splint - Ankle: Aircast ordered. joe diaz
--- NOTE | 2022-04-20 08:05 | ER ---
Nurse's Notes [facility] Name: Mile Wang Age: 27 yrs Sex: Female : 1995 Arrival Date: 04/20/2022 Time: 07:12 Bed 14 Private MD: Diagnosis: Sprain of foot;Sprain of deltoid ligament of left ankle;Sprain of ankle;Fall (on) (from) other stairs and steps Presentation: 04/20 07:19 Chief complaint: Patient states: Twisted L ankle last night tripping over objects on ll1 ground. Coronavirus screen: Vaccine status: Patient reports receiving the 2nd dose of the covid vaccine. Client denies travel out of the [place] in the last 14 days. At this time, the client does not indicate any symptoms associated with coronavirus-19. Ebola Screen: Patient denies travel to an Ebola-affected area in the 21 days before illness onset. Initial Sepsis Screen: Does the patient meet any 2 criteria? No. Patient's initial sepsis screen is negative. Does the patient have a suspected source of infection? Yes: Bone or joint infection. Risk Assessment: Do you want to hurt yourself or someone else? Patient reports no desire to harm self or others. Onset of symptoms was April 19, 2022. 07:19 Method Of Arrival: Wheelchair ll1 07:19 Acuity: BAIRON 4 ll1 Triage Assessment: 07:20 General: Appears in no apparent distress. Behavior is calm, cooperative, appropriate ll1 for age. Pain: Complains of pain in L ankle Quality of pain is described as aching. Musculoskeletal: Circulation, motion, and sensation intact. Capillary refill < 3 seconds, Reports pain in L ankle. Injury Description: Bruise. Historical: - Allergies: 07:19 Doxycycline; ll1 07:19 Macrobid; ll1 07:19 tramadol; ll1 07:19 Vimpat; ll1 - PMHx: 07:19 angina pectoris; Anxiety; Bipolar disorder; Psychogenic Seizures; Seizures; stent in ll1 gallbladder; - PSHx: 07:19 Cholecystectomy; Tonsillectomy; ll1 - Immunization history:: Client reports receiving the 2nd dose of the Covid vaccine. - Social history:: Smoking status: Patient denies any tobacco usage or history of. - Family history:: not pertinent. Screenin:20 [facility] ED Fall Risk Assessment (Adult) History of falling in the last 3 months, ko1 including since admission Yes- single mechanical fall (1 pt) Confusion or Disorientation No (0 pts) Intoxicated or Sedated No (0 pts) Impaired Gait No (0 pts) Mobility Assist Device Used No (0 pt) Altered Elimination No (0 pt) Score/Fall Risk Level 0 - 2 = Low Risk Oriented to surroundings, Maintained a safe environment, Educated pt \T\ family on fall prevention, incl call for assistance when getting out of bed, Assessed \T\ reinforced patient's understanding of fall precautions, Provided non-skid footwear, Hourly rounding (assess needs \T\ fall precautionary measures) done, Used ambulatory aids as needed (educated on \T\ assisted with), Used gait belt as appropriate. Abuse screen: Denies threats or abuse. Denies injuries from another. Nutritional screening: No deficits noted. Tuberculosis screening: No symptoms or risk factors identified. Assessment: 07:20 General: Appears in no apparent distress. uncomfortable, Behavior is calm, cooperative, ko1 appropriate for age. Pain: Complains of pain in left lateral malleolus and left foot and instep of left foot and left medial malleolus. Neuro: No deficits noted. Cardiovascular: No deficits noted. Respiratory: No deficits noted. GI: No deficits noted. : No deficits noted. EENT: No deficits noted. No signs and/or symptoms were reported regarding the EENT system. Derm: No deficits noted. Musculoskeletal: Reports pain in left lateral malleolus and left foot and instep of left foot and left medial malleolus. Injury Description: Bruise sustained to left foot. Vital Signs: 07:19 Resp 17; Temp 98.0; Weight 86.18 kg; Height 5 ft. 4 in. (162.56 cm); Pain 9/10; ll1 07:21 BP 132 / 99; Pulse 85; Resp 18; Pulse Ox 96% on R/A; ko1 07:19 Body Mass Index 32.61 (86.18 kg, 162.56 cm) ll1 ED Course: 07:12 Patient arrived in ED. rg4 07:14 Mikayla Clemons RN is Primary Nurse. ko1 07:14 Zen Villanueva MD is Attending Physician. joe 07:19 Arm band placed on Patient placed in an exam room, on a stretcher. ll1 07:20 Triage completed. ll1 07:20 Patient has correct armband on for positive identification. Bed in low position. Call ko1 light in reach. Pulse ox on. NIBP on. 07:20 No provider procedures requiring assistance completed. Patient did not have IV access ko1 during this emergency room visit. 08:04 Bob Evans MD is Referral Physician. joe Administered Medications: 07:27 Drug: Motrin (ibuprofen) 600 mg Route: PO; ko1 Medication: 07:20 VIS not applicable for this client. ko1 Outcome: 08:04 Discharge ordered by . joe 08:31 Discharged to home ambulatory. ko1 08:31 Condition: stable 08:31 Discharge instructions given to patient, Instructed on discharge instructions, follow up and referral plans. medication usage, Demonstrated understanding of instructions, follow-up care, medications, Prescriptions given X 1. 08:33 Patient left the ED. ko1 Signatures: Zen Villanueva MD MD cha Garcia, Rubi rg4 Stella Aldridge, RN RN 1 Mikayla Clemons, JUAN M RN ko1
--- NOTE | 2022-04-20 08:06 | RAD REPORT ---
EXAM DESCRIPTION: RAD - Ankle Left 3 View - 04/20/2022 7:59 am CLINICAL HISTORY: PAIN COMPARISON: No comparisons FINDINGS: No bone or joint abnormality is seen.
--- NOTE | 2022-04-20 08:07 | RAD REPORT ---
EXAM DESCRIPTION: RAD - Foot Left 3 View - 04/20/2022 7:59 am CLINICAL HISTORY: PAIN COMPARISON: No comparisons FINDINGS: No bone or joint abnormality is detected. Tiny plantar calcaneal spur.
[2022-04-20 08:40] VITALS: TEMP 98
[2022-04-20 08:43] VITALS: BP 132/99; O2SAT 96
== END 2022-04-20 08:33 | disposition home or self-care (01) ==
LOC: ER 07:09
DX: S93.422A Sprain of deltoid ligament of left ankle, initial encounter (principal); S93.602A Unspecified sprain of left foot, initial encounter; W10.8XXA Fall (on) (from) other stairs and steps, initial encounter
CPT/HCPCS: 99283

== ENCOUNTER 2022-07-05 21:20 | Emergency (ER) | payer BC, OTHER ==
--- OUTSIDE RECORDS SUMMARY | 2022-07-05 21:38 | XMS REPORT | Continuity of Care Document ---
:1995 Author Organization [facility] t Address [address] [facility] [place] [address] Care Team Providers Name Role Phone Asked, No Pcp Primary Care Physician Unavailable JOANNE PARKINSON Attending Clinician Unavailable RADHA NOBLES Attending Clinician Unavailable Alma Vasquez Attending Clinician [phone] Faculty, Reddy Gold Attending Clinician Unavailable Seth Kay MD Attending Clinician SETH KAY Attending Clinician Unavailable Mallory Carroll Attending Clinician ALMA SOLIS Attending Clinician Unavailable Doctor Unassigned, [place] Attending Clinician Unavailable KIARRA ARIZMENDI Attending Clinician Unavailable Kiarra Brewer Attending Clinician BRUCE FOFANA Attending Clinician Unavailable MAU RHOADES Attending Clinician Unavailable [facility] Attending Clinician Unavailable Unknown, Attending Attending Clinician Unavailable Provider, Ember Kate Attending Clinician Unavailable Radha Nobles CNM Attending Clinician COLT MICHAELS Attending Clinician Unavailable Dennys Lara MD Attending Clinician RAVEN GOLDSMITH Attending Clinician Unavailable Agus TAYLOR, Raven Attending Clinician CHIQUIS KATE Attending Clinician Unavailable CHIQUIS KATE Attending Clinician Unavailable Eladia Conklin MD Attending Clinician [phone] Chiquis Kate MD Attending Clinician Nory Jiménez DO Attending Clinician Martha Agarwal MD Attending Clinician KEVIN SINGH Attending Clinician Unavailable Risk, Yep-Rwoir-Oq/High Attending Clinician Unavailable Kevin Colbert Attending Clinician DENNYS LARA Attending Clinician Unavailable Areli Patel DO Attending Clinician AMY SHARMA Attending Clinician Unavailable Amy Jacob Attending Clinician Pob, Adc Lab Main Attending Clinician Unavailable Neal Reed MD Attending Clinician [phone] NEAL REED Attending Clinician Unavailable Trever Hernandez Attending Clinician LUKE FISH Attending Clinician Unavailable Luke Fish MD Attending Clinician ARELI PATEL Attending Clinician Unavailable Zamzam MCGOWAN, Vijaya Whelan Attending Clinician Unavailable Ultrasound, Ang-Mfm Attending Clinician Unavailable JoseZen turner DO Attending Clinician TREVER KATZ Attending Clinician Unavailable Anton Renteria MD Attending Clinician ANTON RENTERIA Attending Clinician Unavailable 1, Xms-Mfm Us Room Attending Clinician Unavailable Abena Gonzalez Attending Clinician ABENA PATEL Attending Clinician Unavailable Lab, Pea-Rmchp Attending Clinician Unavailable RICHARD ANDERSON Attending Clinician Unavailable RICHARD ANDERSON Attending Clinician Unavailable ANGELO KENNEY Attending Clinician Unavailable Angelo Kenney MD Attending Clinician MARY, BERTHA S Attending Clinician Unavailable Tyra ROUSSEAU, Bertha S Attending Clinician Richard Anderson MD Attending Clinician ARMEN RODRIGUEZ Attending Clinician Unavailable Armen Rodriguez MD Attending Clinician Lab[facility] Attending Clinician Unavailable LILIANA SALINAS Attending Clinician Unavailable Liliana Stephenson Attending Clinician Desiree TAYLOR, Lauryn Hemphill Attending Clinician LAURYN RAMÍREZ Attending Clinician Unavailable Mesfin Grant RN Attending Clinician Unavailable Mary Rios MD Attending Clinician MARY RIOS Attending Clinician Unavailable Only, Adc Test Attending Clinician Unavailable Cheo Galvin MD Attending Clinician Kwaku ROUSSEAU, Peace Bender Attending Clinician Wong Cade DO Attending Clinician Santosh Simon DO Attending Clinician Terence, [facility] Attending Clinician Unavailable Kevin Miramontes RN Attending Clinician Unavailable TISH NEVAREZ Attending Clinician [...] Admitting Clinician Luke Fish MD Admitting Clinician TYRA, BERTHA Riddle Admitting Clinician Unavailable Mary Rios MD Admitting Clinician MIRELLA STANFORD Admitting Clinician Unavailable TISH NEVAREZ Admitting Clinician Unavailable LORY URBINA I Admitting Clinician Unavailable Payers Payer Name Policy Type Policy Number Effective Date Expiration Date Janessa sofia [facility] [id number] 2021 00:00:00 [facility] [id number] 2017 CHOICE [place] STAR 00:00:00 Problems Condition Condition Condition Status Onset Resolution Last Treating Co mments Source Name Details Category Date Date Treatment Clinician Date Attention Attention Disease Active Uni vers deficit deficit 4-11 [place]y [place] 00 Medical disorder disorder Branch (ADHD), (ADHD), unspecifie unspecifie d ADHD d ADHD type type Anemia, Anemia, Disease Active 2021-03 Univers 2-27 it y of 00:00: [place] [facility] 37 weeks 37 weeks Disease Active 2021-03 Unive rs gestation gestation 2-05 ity of of of 00:00: [place] [address] [facility] Seizure Seizure Disease Active 2021-03 Univers 1-24 ity of 00:00: [place] [facility] Disease Active 2021-03 Uni vers with with 0-11 ity of adoption adoption 00:00: [place] planned planned 00 [facility] URI (upper URI (upper Disease Active U nivers respirator respirator 9-25 it y of y y 00:00: [place] infection) infection) 00 Md dical Branch 27 weeks 27 weeks Disease Active Unive rs gestation gestation 9-25 ity of of of 00:00: [place] 00 [facility] Round Round Disease Active Univers ligament ligament 9-25 ity of pain pain 00:00: [place] 00 [facility] Branch BMI BMI Disease Active Univers 35.0-35.9, 35.0-35.9, 9-23 it y of adult adult 00:00: [place] 00 [facility] Elevated Elevated Disease Active Unive rs blood blood 8-09 ity of pressure pressure 00:00: [place] reading reading 00 Medical without without Branch [...] of high-risk high[place]risk 00[place] [facility] Branch History of History of Disease Active Overview : Univers anxiety anxiety 05 Formattin ity o f 00:00: g of this [place] 00 note Medical might be Branch different from the original. Reports on buspirone Multiparit Multiparit Disease Active U nivers y y 07-11 ity of 00:00: [place] [facility] Obesity in Obesity in Disease Active U nivers 07-11 ity of 00:00: [place] [facility] Depression Depression Disease Active Overview : Univers affecting affecting 07-11 Formattin i ty of , , 00:00: g of this [place] antepartum antepartum 00 note Me dical might be Branch different from the original. Reports on buspirone Frequent Frequent Disease Active Unive rs UTI UTI 8 ity of 00:00: [place] [facility] Seizure Seizure Disease Active Overview: Univ ers disorder disorder - Formattin ity of in in 00:00: g of this [place] 00 note [facility] might be Branch different from the original. Last episode 2 months ago , not on meds Abdominal Abdominal Disease [facility] Abnormal Abnormal Disease [facility] Center UTI UTI Disease Active Univers symptoms symptoms 4-01 ity of 00:00: [place] [facility] Abnormal Abnormal Disease Active Unive rs EKG EKG 8-02 ity of 00:00: [place] [id number] Medical Branch Anxiety Anxiety Disease Active Univers during during 6-28 [place] 00 Medica l trimester, trimester, Br anch antepartum antepartum Rh Rh Disease Active Overview: Univer s negative negative 08-21 Formattin ity of state in state in 00:00: g of this [place] as antepartum antepartum 00 note Me dical period period might be Branch different from the original. Will need rhogam at 28 weeks . Susceptibl Susceptibl Disease Active Overview : Univers e to e to 6 Formattin ity of varicella varicella 00:00: [place] (non-immun (non-immun 00 note Me dical e), e), might be Branch currently currently different from the original. Address pp Vaginal Vaginal Disease Active Univers discharge discharge 09-08 ity of 00:00: [place] 00 Medical Branch Chlamydia Chlamydia Disease Active Uni vers 07-16 ity of 00:00: [place] 00 Medical Branch Bipolar Bipolar Disease Active Overview: Univ ers disease disease 07-15 Formattin ity o f during during 00:00: g of this [place] 00 note Medi tressa might be Branch [...] NITROFUR DRUG Active Palpitations Un [facility]ubree ANTOIN 10-09 ity of MONOHYD/ 00:00: [place] M-CRYST 00 Medical Branch LACOSAMI DRUG Active Hives Univers DE INGREDI 10-09 ity of 00:00: [place] 00 Medical Branch Nitrofur Drug Active Anxiety [facility] antoin Allergy 09[facility]21 [facility] Monohyd/ 00:00: Medical M-Cryst 00 Center Lacosami Drug Active Hives 2020-[address] [facility] de Allergy 7[facility]16 [facility] 00:[facility]: Medical 00 Center LACOSAMI Allergy Active High Hives 2020- [facility] DE [facility] 00:[facility]: Medical 00 [place] NITROFUR Allergy Active Med Anxiety 2020-[address] [facility] ANTOIN 7-16 [facility] MONOHYD/ 00:00: Medical M-CRYST 00 [place] Doxycycl Drug Active Hives, Rash 2019-[address] ine Allergy 2-12 [facility] 00:00: Medical 00 [place] Tramadol Drug Active Other (See 2020-[address] Allergy Comments) 2-12 [facility] 00:00: Medical 00 [place] Doxycycl Propensi Active Other - See 2020-0 seizures Univers ine ty to comments 2-12 ity of adverse 00:00: [place] reaction 00 [facility] Tramadol Propensi Active Other - See 2020-0 seizures Univers ty to comments 2-12 ity of adverse 00:00: [place] reaction 00 [facility] DOXYCYCL DRUG Active Other-Cmnt 2020-0 Univ ers INE INGREDI 2-12 ity of 00:00: [place] 00 [facility] TRAMADOL DRUG Active Other-Cmnt 2020-0 Univ ers INGREDI 2-12 ity of 00:00: [place] 00 [facility] DOXYCYCL Allergy Active High Hives 2019-[address] [facility] INE 2-12 [facility] 00:00: Medical 00 [place] TRAMADOL Allergy Active Other 2020-[address] 2-12 [facility] 00:00: Medical 00 [place] Social History Social Habit Start Date Stop Date Quantity Comments Source ASSERTION 2022-05-17 University of 00:00:00 [facility] Gender identity [facility] Sexual orientation [facility] History SDOH [facility] Alcohol Comment Medical C enter History SDOH [facility] Alcohol Std Drinks Medica l Center History SDOH [facility] Alcohol Binge Medical Zay ter Exposure to 2022-06-07 2022-06-17 Not sure University of SARS-CoV-2 (event) 00:00:00 14:28:00 [facility] Tobacco use and 2021-10-07 2021-10-07 Smokeless Universit y of exposure 00:00:00 00:00:00 tobacco non-user [facility] Alcohol intake 2020-09-24 2020-09-24 Ex-drinker [facility] 00:[facility]00 [facility]:00:00 [facility]finding[facility] History SDOH 2020-09-22 2020-09-22 1 AMANDA Diallo Alcohol Frequency 00:00:00 00:00:00 [facility] Center Sex Ass[birth year] At [birth year] AMANDA [place] 00:00:00 00:00:00 [facility] Center Smoking Status Start Date Stop Date Source Never smoked tobacco [facility] Medications Ordered Filled Start Stop Current Ordering Indication Dosage Frequency Signature Comments Components Source Medication Medication Date Date Medication? Clinician (SIG) Name Name proMETHazin Yes [id number] 25mg Take 1 Univers e 25 mg 4-19 tablet by ity of tablet 00:00: mouth [place] 00 every 6 Medical (six) Branch hours as needed for Nausea and Vomiting (N/V). proMETHazin Yes [id number] 25mg Take 1 Univers e 25 mg 4-19 tablet by ity of tablet 00:00: mouth [place] 00 every 6 Medical (six) Branch hours as needed for Nausea and Vomiting (N/V). foLIC acid 2022- Yes [id number] 4mg Take 4 Univers 1 mg tablet 4-17 10-15 tablets by i ty of 00:00: 04:59 mouth in [place] 00 :00 the Medical morning Branch for 180 days. foLIC acid 2022- Yes [id number] 4mg Take 4 Univers 1 mg tablet 4-17 10-15 tablets by i ty of 00:00: 04:59 mouth in [place] 00 :00 the Medical morning Branch for 180 days. foLIC acid 2022- Yes [id number] 4mg Take 4 Univers 1 mg tablet 4-17 10-15 tablets by i ty of 00:00: 04:59 mouth in [place] 00 :00 the Medical morning Branch for 180 days. Yes [id number] 1{tbl} Take 1 U nivers multivitami 4-11 tablet by ity of n ( 00:00: [place] VITAMIN[place] 00 the Medical tablet morning. Branch Yes [id number] 1{tbl} Take 1 U nivers multivitami 4-11 tablet by ity of n ( 00:00: [place] VITAM[place] 00 the Medical tablet morning. Branch Yes [id number] 1{tbl} Take 1 U nivers multivitami 4-11 tablet by ity of n ( 00:00: [place] VITAMIN[place] 00 the Medical tablet morning. Branch Yes [id number] 1{tbl} Take 1 U nivers multivitami 4-11 tablet by ity of n ( 00:00: [place] VITAMIN[place] 00 the Medical tablet morning. Branch Yes [id number] 1{tbl} Take 1 U nivers multivitami 4-11 tablet by ity of n ( 00:00: mouth [place] VITAMIN[place] 00 the Medical tablet morning. Branch Yes [id number] 1{tbl} Take 1 U nivers multivitami 4-11 tablet by ity of n ( 00:00: [place] VITAMIN[place] 00 the Medical tablet morning. Branch Yes [id number] 1{tbl} Take 1 U nivers multivitami 4-11 tablet by ity of n ( 00:00: [place] VIT[place]IN[place] 00 the Medical tablet morning. Branch Yes [id number] 1{tbl} Take 1 U nivers multivitami 4-11 tablet by ity of n ( 00:00: [place] VITAMIN[place] 00 the Medical tablet morning. Branch Yes [id number] 1{tbl} Take 1 U nivers multivitami 4-11 tablet by ity of n ( 00:00: [place] VIT[place] 00 the Medical tablet morning. Branch gabapentin Yes TAKE 1 Unive rs 300 mg 3-15 CAPSULE BY ity of capsule 00:00: MOUTH [place]CE [place] 00 DAILY Medical NEEDED FOR Branch PANIC ATTACKS DULoxetine Yes 60mg Take 1 Unive rs 60 mg 3-15 capsule by ity of capsule 00:00: mouth in [place] 00 the Medical morning. Branch gabapentin Yes TAKE 1 Unive rs 300 mg 3-15 CAPSULE BY ity of capsule 00:00: MOUTH ONCE [place] 00 DAILY Medical NEEDED FOR Branch PANIC ATTACKS DULoxetine 2022- Yes 60mg Take 1 Unive rs 60 mg 3-15 capsule by ity of capsule 00:00: mouth in [place] 00 the Medical morning. Branch gabapentin 2023-0 Yes TAKE 1 Unive rs 300 mg 3-15 CAPSULE BY ity of capsule 00:00: MOUTH ONCE [place] 00 DAILY Medical NEEDED FOR Branch PANIC ATTACKS DULoxetine 2023-0 Yes 60mg Take 1 Unive rs 60 mg 3-15 capsule by ity of capsule 00:00: mouth in [place] the Medical morning. Branch gabapentin 2023-0 Yes TAKE 1 Unive rs 300 mg 3-15 CAPSULE BY ity of capsule 00:00: MOUTH ONCE [place] 00 DAILY Medical NEEDED FOR Branch PANIC ATTACKS DULoxetine 2023-0 Yes 60mg Take 1 Unive rs 60 mg 3-15 capsule by ity of capsule 00:00: mouth in [place] the Medical morning. Branch gabapentin 2023-0 Yes TAKE 1 Unive rs 300 mg 3-15 CAPSULE BY ity of capsule 00:00: MOUTH ONCE [place] 00 DAILY Medical NEEDED FOR Branch PANIC ATTACKS DULoxetine 2023-0 Yes 60mg Take 1 Unive rs 60 mg 3-15 capsule by ity of capsule 00:00: mouth in [place] the Medical morning. Branch gabapentin 2023-0 Yes TAKE 1 Unive rs 300 mg 3-15 CAPSULE BY ity of capsule 00:00: MOUTH ONCE [place] 00 DAILY Medical NEEDED FOR Branch PANIC ATTACKS DULoxetine 2023-0 Yes 60mg Take 1 Unive rs 60 mg 3-15 capsule by ity of capsule 00:00: mouth in [place] the Medical morning. Branch gabapentin 2023-0 Yes TAKE 1 Unive rs 300 mg 3-15 CAPSULE BY ity of capsule 00:00: MOUTH ONCE [place] 00 DAILY Medical NEEDED FOR Branch PANIC ATTACKS DULoxetine 2023-0 Yes 60mg Take 1 Unive rs 60 mg 3-15 capsule by ity of capsule 00:00: mouth in [place] the Medical morning. Branch gabapentin 2023-0 Yes TAKE 1 Unive rs 300 mg 3-15 CAPSULE BY ity of capsule 00:00: MOUTH ONCE [place] 00 DAILY Medical NEEDED FOR Branch PANIC ATTACKS DULoxetine 2023-0 Yes 60mg Take 1 Unive rs 60 mg 3-15 capsule by ity of capsule 00:00: mouth in [place] 00 the Medical morning. Branch gabapentin 2023-0 Yes TAKE 1 Unive rs 300 mg 3-15 CAPSULE BY ity of capsule 00:00: MOUTH ONCE [place] 00 DAILY Medical NEEDED FOR [place] PANIC ATTACKS DULoxetine 2022-0 Yes 60mg Take 1 Unive rs 60 mg 3-15 capsule by ity of capsule 00:00: mouth in [place] 00 the Medical morning. [place] dexmethylph 2022-0 Yes TAKE 1 Univ ers enidate 20 3-14 CAPSULE BY ity of mg 24 hr 00:00: MOUTH [place] capsule 00 EVERY DAY Medical IN THE [place] MORNING FOR 30 DAYS dexmethylph 2022-0 Yes TAKE 1 Univ ers enidate 20 3-14 CAPSULE BY ity of mg 24 hr 00:00: MOUTH [place] capsule 00 EVERY DAY Medical IN THE [place] MORNING FOR 30 DAYS dexmethylph 2022-0 Yes TAKE 1 Univ ers enidate 20 3-14 CAPSULE BY ity of mg 24 hr 00:00: MOUTH [place] capsule 00 EVERY DAY Medical IN THE [place] MORNING FOR 30 DAYS dexmethylph 2022-0 Yes TAKE 1 Univ ers enidate 20 3-14 CAPSULE BY ity of mg 24 hr 00:00: MOUTH [place] capsule 00 EVERY DAY Medical IN THE [facility] FOR 30 DAYS dexmethylph 2022-0 Yes TAKE 1 Univ ers enidate 20 3-14 CAPSULE BY ity of mg 24 hr 00:00: MOUTH [place] capsule 00 EVERY DAY Medical IN THE [place] MORNING FOR 30 DAYS dexmethylph 2022-0 Yes TAKE 1 Univ ers enidate 20 3-14 CAPSULE BY ity of mg 24 hr 00:00: MOUTH [place] capsule 00 EVERY DAY Medical IN THE [place] MORNING FOR 30 DAYS dexmethylph 2022-0 Yes TAKE 1 Univ ers enidate 20 3-14 CAPSULE BY ity of mg 24 hr 00:00: MOUTH [place] capsule 00 EVERY DAY Medical IN THE [place] MORNING FOR 30 DAYS dexmethylph 2022-0 Yes TAKE 1 Univ ers enidate 20 3-14 CAPSULE BY ity of mg 24 hr 00:00: MOUTH [place] capsule 00 EVERY DAY Medical IN THE [place] MORNING FOR 30 DAYS dexmethylph 2022-0 Yes TAKE 1 Univ ers enidate 20 3-14 CAPSULE BY ity of mg 24 hr 00:00: MOUTH [place] capsule 00 EVERY DAY Medical IN THE [place] MORNING FOR 30 DAYS ketorolac 2021-03- No 30mg 30 mg, Unive rs (TORADOL) 2-12 12-11 Slow IV ity of injection 00:15: 23:30 [place], [place] 30 mg 00 :00 ONCE, 1 Medical dose, On Branch [place] 02/16/22 at 1815, SHAYNA FENTanyl PF 2021-03- No 75ug 75 mcg, Un [place] (SUBLIMAZE 2- 12-11 Slow IV ity o f (PF)) 23:15: 22:46 [place], [place] injection 00 :00 ONCE, 1 Medical 75 mcg dose, On Branch [place] 02/16/22 at 1715, STAT iopamidol 2021-03- No [id number] 74mL 74 mL, U nivers (ISOVUE 2- 12-11 Intravenou ity o f 370-500 mL) 21:00: 21:15 s, ONCE, 1 [place] injection 00 :00 dose, On Medica l 74 mL Sun [place] 02/16/22 at 1515, Routine metoclopram 2021-03 Yes [id number] 10mg Take 1 Univers arabella HCl 10 2-11 tablet by ity of mg tablet 00:00: mouth [place] 00 every 6 Medical (six) Branch hours. metoclopram 2021-03 Yes [id number] 10mg Take 1 Univers arabella HCl 10 2-11 tablet by ity of mg tablet 00:00: mouth [place] 00 every 6 Medical (six) Branch hours. metoclopram 2021-03 Yes [id number] 10mg Take 1 Univers arabella HCl 10 2-11 tablet by ity of mg tablet 00:00: mouth [place] 00 every 6 Medical (six) Branch hours. metoclopram 2021-03 Yes [id number] 10mg Take 1 Univers arabella HCl 10 2-11 tablet by ity of mg tablet 00:00: mouth [place] 00 every 6 Medical (six) Branch hours. metoclopram 2021-03 Yes [id number] 10mg Take 1 Univers arabella HCl 10 2-11 tablet by ity of mg tablet 00:00: mouth [place] 00 every 6 Medical (six) Branch hours. metoclopram 2021-03 Yes [id number] 10mg Take 1 Univers arabella HCl 10 2-11 tablet by ity of mg tablet 00:00: mouth [place] 00 every 6 Medical (six) Branch hours. metoclopram 2021-03 Yes [id number] 10mg Take 1 Univers arabella HCl 10 2-11 tablet by ity of mg tablet 00:00: mouth [place] 00 every 6 Medical (six) Branch hours. metoclopram 2021-03 Yes [id number] 10mg Take 1 Univers arabella HCl 10 2-11 tablet by ity of mg tablet 00:00: mouth [place] 00 every 6 Medical (six) Branch hours. metoclopram 2021-03- No [id number] 10mg Take 1 Univers arabella HCl 10 2-11 04-11 tablet by ity of mg tablet 00:00: 00:00 mouth [place] 00 :00 every 6 Medical (six) Branch hours. foLIC [...] [place] mg 00 First dose Medical on Thu02/12/22 at 0900, Until Discontinu ed, Routine docusate 2021-03 Yes [id number] 200mg Take 2 U nivers 100 mg 2-07 capsules ity of capsule 00:00: by mouth [place] 00 once daily Medical as needed Branch for Constipati on. ferrous 2021-03 Yes [id number] 325mg Take 1 Un aburee sulfate 325 2-07 tablet by ity of mg (65 mg 00:00: mouth [place] iron) 00 every Medical tablet other day. Branch ibuprofen 2021-03 Yes [id number] 600mg Take 1 Univers 600 mg 2-07 [...] Until Discontinu ed, Routine docusate 2021-03 Yes [id number] 200mg Take 2 U nivers 100 mg 2-07 capsules ity of capsule 00:00: by mouth [place] 00 once daily Medical as needed Branch for Constipati on. ferrous 2021-03 Yes [id number] 325mg Take 1 Un [place] sulfate 325 2-07 tablet by ity of mg (65 mg 00:00: mouth [place] iron) 00 every Medical tablet other day. Branch ibuprofen 2021-03 Yes [id number] 600mg Take 1 Univers 600 mg 2-07 tablet by ity of tablet 00:00: mouth [place] 00 every 6 Medical (six) Branch hours as needed (Pain). Take with food or milk. docusate 2021-03 Yes [id number] 200mg Take 2 U nivers 100 mg 2-07 capsules ity of capsule 00:00: by mouth [place] 00 once daily Medical as needed Branch for Constipati on. ferrous 2021-03 Yes [id number] 325mg Take 1 Un [place] sulfate 325 2-07 tablet by ity of mg (65 mg 00:00: mouth [place] iron) 00 every Medical tablet other day. Branch ibuprofen 2021-03 Yes [id number] 600mg Take 1 Univers 600 mg 2-07 tablet by ity of tablet 00:00: mouth [place] 00 every 6 Medical (six) Branch hours as needed (Pain). Take with food or milk. docusate 2021-03 Yes [id number] 200mg Take 2 U nivers 100 mg 2-07 capsules ity of capsule 00:00: by mouth [place] 00 once daily Medical as needed Branch for Constipati on. ferrous 2021-03 Yes [id number] 325mg Take 1 Un [place] sulfate 325 2-07 tablet by ity of mg (65 mg 00:00: mouth [place] iron) 00 every Medical tablet other day. Branch ibuprofen 2021-03 Yes [id number] 600mg Take 1 Univers 600 mg 2-07 tablet by ity of tablet 00:00: mouth [place] 00 every 6 Medical (six) Branch hours as needed (Pain). Take with food or milk. docusate 2021-03 Yes [id number] 200mg Take 2 U nivers 100 mg 2-07 capsules ity of capsule 00:00: by mouth [place] 00 once daily Medical as needed Branch for Constipati on. ferrous 2021-03 Yes [id number] 325mg Take 1 Un [place] sulfate 325 2-07 tablet by ity of mg (65 mg 00:00: mouth [place] iron) 00 every Medical tablet other day. Branch ibuprofen 2021-03 Yes [id number] 600mg Take 1 Univers 600 mg 2-07 tablet by ity of tablet 00:00: mouth [place] 00 every 6 Medical (six) Branch hours as needed (Pain). Take with food or milk. docusate 2021-03 Yes [id number] 200mg Take 2 U nivers 100 mg 2-07 capsules ity of capsule 00:00: by mouth [place] 00 once daily Medical as needed Branch for Constipati on. ferrous 2021-03 Yes [id number] 325mg Take 1 Un [place] sulfate 325 2-07 tablet by ity of mg (65 mg 00:00: mouth [place] iron) 00 every Medical tablet other day. Branch ibuprofen 2021-03 Yes [id number] 600mg Take 1 Univers 600 mg 2-07 tablet by ity of tablet 00:00: mouth [place] 00 every 6 Medical (six) Branch hours as needed (Pain). Take with food or milk. docusate 2021-03 Yes [id number] 200mg Take 2 U nivers 100 mg 2-07 capsules ity of capsule 00:00: by mouth [place] 00 once daily Medical as needed Branch for Constipati on. ferrous 2021-03 Yes [id number] 325mg Take 1 Un [place] sulfate 325 2-07 tablet by ity of mg (65 mg 00:00: mouth [place] iron) 00 every Medical tablet other day. Branch ibuprofen 2021-03 Yes [id number] 600mg Take 1 Univers 600 mg 2-07 tablet by ity of tablet 00:00: mouth [place] 00 every 6 Medical (six) Branch hours as needed (Pain). Take with food or milk. docusate 2021-03 Yes [id number] 200mg Take 2 U nivers 100 mg 2-07 capsules ity of capsule 00:00: by mouth [place] 00 once daily Medical as needed Branch for Constipati on. ferrous 2021-03 Yes [id number] 325mg Take 1 Un [place] sulfate 325 2-07 tablet by ity of mg (65 mg 00:00: mouth [place] iron) 00 every Medical tablet other day. Branch ibuprofen 2021-03 Yes [id number] 600mg Take 1 Univers 600 mg 2-07 tablet by ity of tablet 00:00: mouth [place] 00 every 6 Medical (six) Branch hours as needed (Pain). Take with food or milk. docusate 2021-03 Yes [id number] 200mg Take 2 U nivers 100 mg 2-07 capsules ity of capsule 00:00: by mouth [place] 00 once daily Medical as needed Branch for Constipati on. ferrous 2021-03 Yes [id number] 325mg Take 1 Un [place] sulfate 325 2-07 tablet by ity of mg (65 mg 00:00: mouth [place] iron) 00 every Medical tablet other day. Branch ibuprofen 2021-03 Yes [id number] 600mg Take 1 Univers 600 mg 2-07 tablet by ity of tablet 00:00: mouth [place] 00 every 6 Medical (six) Branch hours as needed (Pain). Take with food or milk. docusate 2021-03 Yes [id number] 200mg Take 2 U nivers 100 mg 2-07 capsules ity of capsule 00:00: by mouth [place] 00 once daily Medical as needed Branch for Constipati on. ferrous 2021-03 Yes [id number] 325mg Take 1 [facility] [place] sulfate 325 2-07 tablet by ity of mg (65 mg 00:00: mouth [place] iron) 00 every Medical tablet other day. Branch ibuprofen 2021-03 Yes [id number] 600mg Take 1 [facility] 600 mg 2-07 tablet by ity of tablet 00:00: mouth [place] 00 every 6 Medical (six) Branch hours as needed (Pain). Take with food or milk. docusate 2021-03- No [id number] 200mg Take 2 [facility] 100 mg 2- 04-11 capsules ity of capsule 00:00: 00:00 by mouth [place] 00 :00 once daily Medical as needed Branch for Constipati on. ferrous 2021-03- No [id number] 325mg Take 1 U nivers sulfate 325 2-07 04-11 tablet by it y of mg (65 mg 00:00: 00:00 mouth [place] iron) 00 :00 every Medical tablet other day. Branch ibuprofen 2021-03- No [id number] 600mg Take 1 [facility] 600 mg 2-07 04-11 tablet by ity of tablet 00:00: 00:00 mouth [place] 00 :00 every 6 Medical (six) Branch hours as needed (Pain). Take with food or milk. foLIC acid 2021-03- No [id number] 1mg Take 1 [facility] 1 mg tablet 04-15- tablet by it y of 00:00: 05:59 mouth in [place] 00 :00 the Medical morning Branch for 90 days. foLIC acid 2021-03- No [id number] 1mg Take 1 [facility] 1 mg tablet 04-15-08 tablet by it y of 00:00: 05:59 mouth in [place] 00 :00 the Medical morning Branch for 90 days. foLIC acid 2021-03- No [id number] 1mg Take 1 [facility] 1 mg tablet 04-15 tablet by it y of 00:00: 05:59 mouth in [place] 00 :00 the Medical morning Branch for 90 days. foLIC acid 2021-03- No [id number] 1mg Take 1 [facility] 1 mg tablet 04-15 tablet by it y of 00:00: 05:59 mouth in [place] 00 :00 the [facility] morning Branch for 90 days. foLIC acid 2021-03- No [id number] 1mg Take 1 [facility] 1 mg tablet 04-15 tablet by it y of 00:00: 05:59 mouth in [place] 00 :00 the Medical morning Branch for 90 days. foLIC acid 2021-03- No [id number] 1mg Take 1 [facility] 1 mg tablet 04-15 tablet by it y of 00:00: 05:59 mouth in [place] 00 :00 the Medical morning Branch for 90 days. foLIC acid 2021-03- No [id number] 1mg Take 1 [facility] 1 mg tablet 04-15 tablet by it y of 00:00: 05:59 mouth in [place] 00 :00 the [facility] morning [place] for 90 days. foLIC acid 2021-03- No [id number] 1mg Take 1 [facility] 1 mg tablet 04-15 tablet by it y of 00:00: 05:59 mouth in [place] 00 :00 the [facility] morning Branch for 90 days. foLIC acid 2021-03- No [id number] 1mg Take 1 [facility] 1 mg tablet 04-15 tablet by it y of 00:00: 05:59 mouth in [place] 00 :00 the [facility] for 90 days. ibuprofen 2021-03 Yes 600mg 600 mg, Univ ers (IBU) 2-06 Oral, ity of tablet 600 19:22: Q6HPRN, [place] mg 45 Starting Medical on Thu02/11/22 at 1322, Until Discontinu ed, Routine, Pain (scale 4-6) acetaminoph 2021-03 Yes 650mg 650 mg, [facility] [place] en 2-06 Oral, ity of (TYLENOL) 19:22: Q6HPRN, [place] tablet 650 45 Starting Medic al mg on Thu22 at 1322, Until Discontinu ed, Routine, Pain (scale 1-3) diphenhydrA 2021-03 Yes 25mg 25 mg, Univ ers MINE 2-06 Oral, ity of (BENADRYL) 19:22: Q6HPRN, [place] tablet 25 45 Starting Medica l mg on [facility] Branch 02/11/22 at 1322, Until Discontinu ed, Routine, Sleep, Itching ondansetron 2021-03 Yes 4mg 4 mg, Slow Univers (ZOFRAN 2-06 IV Push, ity of (PF)) 19:22: Q8HPRN, [place] injection 4 45 Starting Medi tressa mg on [facility] Branch 02/11/22 at 1322, Until Discontinu ed, Routine, Nausea and Vomiting (N/V) simethicone 2021-03 Yes 160mg 160 mg, [facility] (GAS RELIEF 2-06 Oral, ity of (SIMETHICON 19:22: PC+HSPRN, [place] E)) 45 Starting Medical chewable on [facility] tablet 160 02/11/22 at mg 1322, Until Discontinu ed, Routine, Gas docusate 2021-03 Yes 200mg 200 mg, Unive rs (COLACE) 2-06 Oral, ity of capsule 200 19:22: QDAILYPRN, [place] mg 45 Starting Medical on [facility] Branch 02/11/22 at 1322, Until Discontinu ed, Routine, Constipati on magnesium 2021-03 Yes 30mL 30 mL, Univer s hydroxide 2-06 Oral, ity of (MILK OF 19:22: QDAILYPRN, [place] MAGNESIA) 45 Starting Medica l 400 mg/[address] [facility] suspension 02/11/22 at 30 mL 1322, Until Discontinu ed, Routine, Constipati on benzocaine- 2021-03 Yes Topical, [facility] [place] menthol 2-06 PRN, ity of (DERMOPLAST 19:22: Starting [place] ) 20-0.5 % 44 on [facility] Medical topical 02/11/22 at Branch spray 1322, Until Discontinu ed, Routine, Perineum discomfort oxytocin 2021-03- No 300mL/h 300 mL/hr, Univers (PITOCIN) 2-06 12-06 IV ity of 30 units in 16:59: 19:22 Infusion, [place] NS 500 mL 29 :49 SEE-INSTRU Medi tressa IV infusion CTIONS, Branc h Starting on Thu02/11/[address] at 300 mL/hr for 1 hr then 150 mL/hr for 1 hr. & nbsp; For post delivery uterotonic
PIB 2021-03- No Epidural, Univers ropivacaine 04-14 CONTINUOUS i ty of 0.2 % 16:30: 18:20 PRN, [place] (NAROPIN 00 :56 Starting Medical (PF)) on Thu Branch epidural 02/11/22 at infusion 1030, Until Thu02/11/22 at 1220, Routine, Intra-op bupivacaine 2021-03 No Caudal Uni vers (preserv 04-14 Block, ity of free) 15:33: 18:20 ONCE INTRA [place] (SENSORCAIN 00 :56 PROCEDURE, Me dical E MPF) 0.25 Starting Bran ch % (2.5 on e mg/mL) 02/11/22 at injection 0933, Until Thu02/11/22 at 1220, Routine, Intra-op lamoTRIgine 2021-03 Yes 75mg 75 mg, Univ ers (LAMICTAL) 04-14 Oral, ity of tablet 75 13:30: QAM-0730, [place] mg 00 First dose Medical on [facility] Branch 02/11/22 at 0730, Until Discontinu ed, Routine ondansetron 2021-03- No 4mg 4 mg, Slow Univers (ZOFRAN 04-14 IV Push, ity of (PF)) 12:40: 12:44 ONCE, On [place] injection 4 00 :00 Tue Medical mg 02/11/22 at Branch 0645, For 1 dose
Do ses of ondansetro n 16 mg and above need to be administer ed via IV piggyback. For Dose >=24mg ECG monitoring is advisable.
ropivacaine 2021-03- No Epidural, Univers 0.2 % 04-14 CONTINUOUS ity of (NAROPIN 06:45: 18:20 PRN, [place] (PF)) 00 :56 Starting Medical epidural on Thu Branch infusion 02/11/22 at 0045, Until Discontinu ed, Routine, Intra-op lactated 2021-03 No 500mL at 999 Unive rs ringers IV 04-14 mL/hr, 500 it y of infusion 06:45: 06:16 mL, IV [place] 500 mL 00 :00 Infusion, Medical ONCE, 1 Branch dose, On Thu02/11/22 at 0045, Routine lidocaine-e 2021-03 Intraderma Univers pinephrine 04-14 l, ONCE ity o f (XYLOCAINE 06:40: 18:20 INTRA [place] W/EPINEPHRI 00 :56 PROCEDURE, Me dical NE) 1.5 Starting Branch %-1:200,000 on Thu injection 02/11/22 at 0040, Until Discontinu ed, Routine, Intra-op sodium 2021-03 No 30mL 30 mL, Univers citrate-cit 04-14 Oral, ity of keila acid 05:55: 06:16 PRE-PROCED [place] (BICITRA) 08 :00 URE ONCE, Medic al 500-334 1 dose, Branch mg/5 mL Starting solution 30 on Thu mL 02/10/22 at 2355, Until Thu02/11/22 at 0016, Routine, Surgery/Pr ocedure lamoTRIgine 2021-03 Yes 100mg 100 mg, [facility] (LAMICTAL) 04-14 Oral, QHS, ity of tablet 100 03:00: First dose [place] mg 00 on Thu Medical 02/10/22 at Branch 2100, Until Discontinu ed, Routine proMETHazin 2021-03 No 25mg 25 mg, IV Univers e 04-14 Piggyback, ity of (PHENERGAN) 00:45: 00:59 at 200 [place] 25 mg in [place] 00 :00 mL/hr Medical 50 mL IV Administer Branc h piggyback over 15 (CNR) Minutes, ONCE, 1 dose, On Thu02/10/22 at 1845, Routine butorphanol 2021-03 No 1mg 1 mg, Univ ers (STADOL) 04-14 Intravenou ity of injection 1 00:45: 00:09 s, ONCE, 1 [place] mg 00 :00 dose, On Medical Mon Branch 02/10/22 at 1845, Routine oxytocin 2021-03- No 2mU/min at 2-40 [facility] [place] (PITOCIN) 2- 12-06 mL/hr, IV ity of 30 units in 00:02: 19:22 Infusion, [place] NS 500 mL 47 :49 TITRATE, Medica l IV infusion Starting Bran ch on Thu02/10/22 at 1802, Until Thu02/11/22 at 1322, SHAYNA [id number] IV 2021-03- No 1000mL at 1-125 U nivers infusion 205 12-06 mL/hr, IV ity o f 1,000 mL 22:58: 19:22 Infusion, [place] 45 :49 TITRATE, Medical Starting Branch on [facility] 02/10/22 at 1658, Until Thu02/11/22 at 1322, Routine lamoTRIgine 2021-03- No 100mg Take 100 Univers 100 mg 2-05 12-05 mg by ity of tablet 17:04: 00:00 mouth at [place] 29 :[address] lamoTRIgine 2021-03- No 100mg Take 100 Univers 100 mg 2-05 12-05 mg by ity of tablet 17:04: 00:00 mouth at [place] 29 :[address] 2021-03 Yes 1{tbl} 1 tablet, [facility] [place] vitamin 1-25 Oral, ity of w/FA tablet 15:00: DAILY, [place] 1 tablet 00 First dose Medic al on Thu Branch 01/31/22 at 0900, Until Discontinu ed, Routine magnesium 2021-03- No 2g 2 g, IV Univ ers sulfate in 04-0124 Piggyback, it y of water 2 22:45: 22:00 Administer [place] gram/50 mL 00 :00 over 60 Medica l (4 %) Minutes, Branch infusion 2 ONCE, 1 g dose, On [place] 01/30/22 at 1645, Routine NaCl 0.9% 2021-03- No 1000mL at 999 Uni vers (NS) bolus 04-01-24 mL/hr, ity of infusion 22:45: 22:01 1,000 [...] 18:07: mouth at [place] tablet [address] lamoTRIgine 2021-03 Yes 100mg Take 100 U nivers (LAMICTAL) 1-24 mg by ity of 100 mg 18:07: mouth at [place] tablet [address] lamoTRIgine 2021-03 Yes 100mg Take 100 U nivers (LAMICTAL) 1-24 mg by ity of 100 mg 18:07: mouth at [place] tablet [address] lamoTRIgine 2021-03 Yes 100mg Take 100 U nivers (LAMICTAL) 1-24 mg by ity of 100 mg 18:07: mouth at [place] tablet [address] lamoTRIgine 2021-03 Yes 100mg Take 100 U nivers (LAMICTAL) 1-24 mg by ity of 100 mg 18:07: mouth at [place] tablet [address] proMETHazin 2021-03 Yes [id number] 25mg Take 1 Univers e 25 mg 1-15 tablet by ity of tablet 00:00: mouth [place] 00 every 4 Medical (four) Branch hours as needed for Nausea and Vomiting (N/V). proMETHazin 2021-03 Yes [id number] 25mg Take 1 Univers e 25 mg 1-15 tablet by ity of tablet 00:00: mouth [place] 00 every 4 Medical (four) Branch hours as needed for Nausea and Vomiting (N/V). proMETHazin 2021-03 Yes [id number] 25mg Take 1 Univers e 25 mg 1-15 tablet by ity of tablet 00:00: mouth [place] 00 every 4 Medical (four) Branch hours as needed for Nausea and Vomiting (N/V). proMETHazin 2021-03 Yes [id number] 25mg Take 1 Univers e 25 mg 1-15 tablet by ity of tablet 00:00: mouth [place] 00 every 4 Medical (four) Branch hours as needed for Nausea and Vomiting (N/V). proMETHazin 2021-03 Yes [id number] 25mg Take 1 Univers e 25 mg 1-15 tablet by ity of tablet 00:00: mouth [place] 00 every 4 Medical (four) Branch hours as needed for Nausea and Vomiting (N/V). proMETHazin 2021-03 Yes [id number] 25mg Take 1 Univers e 25 mg 1-15 tablet by ity of tablet 00:00: mouth [place] 00 every 4 Medical (four) Branch hours as needed for Nausea and Vomiting (N/V). proMETHazin 2021-03 Yes [id number] 25mg Take 1 Univers e 25 mg 1-15 tablet by ity of tablet 00:00: mouth [place] 00 every 4 Medical (four) Branch hours as needed for Nausea and Vomiting (N/V). proMETHazin 2021-03 Yes [id number] 25mg Take 1 Univers e 25 mg 1-15 tablet by ity of tablet 00:00: mouth [place] 00 every 4 Medical (four) Branch hours as needed for Nausea and Vomiting (N/V). proMETHazin 2021-03 Yes [id number] 25mg Take 1 Univers e 25 mg 1-15 tablet by ity of tablet 00:00: mouth [place] 00 every 4 Medical (four) Branch hours as needed for Nausea and Vomiting (N/V). proMETHazin 2021-03- No [id number] 25mg Take 1 Univers e 25 mg 1-15 12-05 tablet by ity of tablet 00:00: 00:00 mouth [place] 00 :00 every 4 Medical (four) Branch hours as needed for Nausea and Vomiting (N/V). proMETHazin 2021-03- No [id number] 25mg Take 1 Univers e 25 mg 1-15 12-05 tablet by ity of tablet 00:00: 00:00 mouth [place] 00 :00 every 4 Medical (four) Branch hours as needed for Nausea and Vomiting (N/V). lamoTRIgine 2021-03 Yes [id number] 75mg Take 3 Univers 25 mg 1-10 tablets by ity of tablet 00:00: mouth [place] 00 every Medical morning. Branch lamoTRIgine 2021-03 Yes [id number] 100mg Take 1 Univers (LAMICTAL) 1-10 tablet by ity of 100 mg 00:00: mouth at [place] tablet 00 bedtime. Medical Branch lamoTRIgine 2021-03 Yes [id number] 75mg Take 3 Univers 25 mg 1-10 tablets by ity of tablet 00:00: mouth [place] 00 every Medical morning. Branch lamoTRIgine 2021-03 Yes [id number] 100mg Take 1 Univers (LAMICTAL) 1-10 tablet by ity of 100 mg 00:00: mouth at [place] tablet 00 bedtime. Medical Branch lamoTRIgine 2021-03 Yes [id number] 75mg Take 3 Univers 25 mg 1-10 tablets by ity of tablet 00:00: mouth [place] 00 every Medical morning. Branch lamoTRIgine 2021-03 Yes [id number] 100mg Take 1 Univers (LAMICTAL) 1-10 tablet by ity of 100 mg 00:00: mouth at [place] tablet 00 bedtime. Medical Branch lamoTRIgine 2021-03 Yes [id number] 75mg Take 3 Univers 25 mg 1-10 tablets by ity of tablet 00:00: mouth [place] 00 every Medical morning. Branch lamoTRIgine 2021-03 Yes [id number] 100mg Take 1 Univers (LAMICTAL) 1-10 tablet by ity of 100 mg 00:00: mouth at [place] tablet 00 bedtime. Medical Branch lamoTRIgine 2021-03 Yes [id number] 75mg Take 3 Univers 25 mg 1-10 tablets by ity of tablet 00:00: mouth [place] 00 every Medical morning. Branch lamoTRIgine 2021-03 Yes [id number] 100mg Take 1 Univers (LAMICTAL) 1-10 tablet by ity of 100 mg 00:00: mouth at [place] tablet 00 bedtime. Medical Branch lamoTRIgine 2021-03 Yes [id number] 75mg Take 3 Univers 25 mg 1-10 tablets by ity of tablet 00:00: mouth [place] 00 every Medical morning. Branch lamoTRIgine 2021-03 Yes [id number] 100mg Take 1 Univers (LAMICTAL) 1-10 tablet by ity of 100 mg 00:00: mouth at [place] tablet 00 bedtime. Medical Branch lamoTRIgine 2021-03 Yes [id number] 75mg Take 3 [facility] 25 mg 1-10 tablets by ity of tablet 00:00: mouth [place] 00 every Medical morning. Branch lamoTRIgine 2021-03 Yes [id number] 100mg Take 1 Univers (LAMICTAL) 1-10 tablet by ity of 100 mg 00:00: mouth at [place] tablet 00 bedtime. Medical Branch lamoTRIgine 2021-03 Yes [id number] 75mg Take 3 Univers 25 mg 1-10 tablets by ity of tablet 00:00: mouth [place] 00 every Medical morning. Branch lamoTRIgine 2021-03 Yes [id number] 100mg Take 1 Univers (LAMICTAL) 1-10 tablet by ity of 100 mg 00:00: mouth at [place] tablet 00 bedtime. Medical Branch lamoTRIgine 2021-03 Yes [id number] 75mg Take 3 Univers 25 mg 1-10 tablets by ity of tablet 00:00: mouth [place] 00 every Medical morning. Branch lamoTRIgine 2021-03 Yes [id number] 100mg Take 1 Univers (LAMICTAL) 1-10 tablet by ity of 100 mg 00:00: mouth at [place] tablet 00 bedtime. Medical Branch lamoTRIgine 2021-03 Yes [id number] 75mg Take 3 Univers 25 mg 1-10 tablets by ity of tablet 00:00: mouth [place] 00 every Medical morning. Branch lamoTRIgine 2021-03 Yes [id number] 100mg Take 1 Univers (LAMICTAL) 1-10 tablet by ity of 100 mg 00:00: mouth at [place] tablet 00 bedtime. Medical Branch lamoTRIgine 2021-03 Yes [id number] 75mg Take 3 Univers 25 mg 1-10 tablets by ity of tablet 00:00: mouth [place] 00 every Medical morning. Branch lamoTRIgine 2021-03 Yes [id number] 100mg Take 1 Univers (LAMICTAL) 1-10 tablet by ity of 100 mg 00:00: mouth at [place] tablet 00 bedtime. Medical Branch lamoTRIgine 2021-03 Yes [id number] 75mg Take 3 Univers 25 mg 1-10 tablets by ity of tablet 00:00: mouth [place] 00 every Medical morning. Branch lamoTRIgine 2021-03 Yes [id number] 100mg Take 1 Univers (LAMICTAL) 1-10 tablet by ity of 100 mg 00:00: mouth at [place] tablet 00 bedtime. Medical Branch lamoTRIgine 2021-03 Yes [id number] 75mg Take 3 Univers 25 mg 1-10 tablets by ity of tablet 00:00: mouth [place] 00 every Medical morning. Branch lamoTRIgine 2021-03 Yes [id number] 100mg Take 1 Univers (LAMICTAL) 1-10 tablet by ity of 100 mg 00:00: mouth at [place] tablet 00 bedtime. [facility] Branch lamoTRIgine 2021-03 Yes [id number] 75mg Take 3 Univers 25 mg 1-10 tablets by ity of tablet 00:00: mouth [place] 00 every Medical morning. Branch lamoTRIgine 2021-03 Yes [id number] 100mg Take 1 Univers (LAMICTAL) 1-10 tablet by ity of 100 mg 00:00: mouth at [place] tablet 00 bedtime. [facility] Branch lamoTRIgine 2021-03 Yes [id number] 75mg Take 3 Univers 25 mg 1-10 tablets by ity of tablet 00:00: mouth [place] 00 every Medical morning. Branch lamoTRIgine 2021-03 Yes [id number] 100mg Take 1 Univers (LAMICTAL) 1-10 tablet by ity of 100 mg 00:00: mouth at [place] tablet 00 bedtime. [facility] Branch lamoTRIgine 2021-03 Yes [id number] 75mg Take 3 Univers 25 mg 1-10 tablets by ity of tablet 00:00: mouth [place] 00 every Medical morning. Branch lamoTRIgine 2021-03 Yes [id number] 100mg Take 1 Univers (LAMICTAL) 1-10 tablet by ity of 100 mg 00:00: mouth at [place] tablet 00 bedtime. Medical Branch lamoTRIgine 2021-03 Yes [id number] 75mg Take 3 Univers 25 mg 1-10 tablets by ity of tablet 00:00: mouth [place] 00 every Medical morning. Branch lamoTRIgine 2021-03 Yes [id number] 100mg Take 1 Univers (LAMICTAL) 1-10 tablet by ity of 100 mg 00:00: mouth at [place] tablet 00 bedtime. [facility] Branch lamoTRIgine 2021-03 Yes [id number] 75mg Take 3 Univers 25 mg 1-10 tablets by ity of tablet 00:00: mouth [place] 00 every Medical morning. Branch lamoTRIgine 2021-03 Yes [id number] 100mg Take 1 Univers (LAMICTAL) 1-10 tablet by ity of 100 mg 00:00: mouth at [place] tablet 00 bedtime. Medical Branch lamoTRIgine 2021-03 Yes [id number] 75mg Take 3 [facility] 25 mg 1-10 tablets by ity of tablet 00:00: mouth [place] 00 every Medical morning. Branch lamoTRIgine 2021-03 Yes [id number] 100mg Take 1 Univers (LAMICTAL) 1-10 tablet by ity of 100 mg 00:00: mouth at [place] tablet 00 bedtime. [facility] Branch lamoTRIgine 2021-03 Yes [id number] 75mg Take 3 Univers 25 mg 1-10 tablets by ity of tablet 00:00: mouth [place] 00 every Medical morning. Branch lamoTRIgine 2021-03 Yes [id number] 100mg Take 1 Univers (LAMICTAL) 1-10 tablet by ity of 100 mg 00:00: mouth at [place] tablet 00 bedtime. Medical Branch lamoTRIgine 2021-03 Yes [id number] 75mg Take 3 [facility] 25 mg 1-10 tablets by ity of tablet 00:00: mouth [place] 00 every Medical morning. Branch lamoTRIgine 2021-03 Yes [id number] 100mg Take 1 Univers (LAMICTAL) 1-10 tablet by ity of 100 mg 00:00: mouth at [place] tablet 00 bedtime. Medical Branch lamoTRIgine 2021-03 Yes [id number] 75mg Take 3 [facility] 25 mg 1-10 tablets by ity of tablet 00:00: mouth [place] 00 every Medical morning. Branch lamoTRIgine 2021-03 Yes [id number] 100mg Take 1 Univers (LAMICTAL) 1-10 tablet by ity of 100 mg 00:00: mouth at [place] tablet 00 bedtime. Medical Branch lamoTRIgine 2021-03 Yes [id number] 75mg Take 3 [facility] 25 mg 1-10 tablets by ity of tablet 00:00: mouth [place] 00 every Medical morning. Branch lamoTRIgine 2021-03 Yes [id number] 100mg Take 1 Univers (LAMICTAL) 1-10 tablet by ity of 100 mg 00:00: mouth at [place] tablet 00 bedtime. Medical Branch lamoTRIgine 2021-03 Yes [id number] 75mg Take 3 [facility] 25 mg 1-10 tablets by ity of tablet 00:00: mouth [place] 00 every Medical morning. Branch lamoTRIgine 2021-03 Yes [id number] 100mg Take 1 Univers (LAMICTAL) 1-10 tablet by ity of 100 mg 00:00: mouth at [place] tablet 00 bedtime. Medical Branch lamoTRIgine 2021-03 Yes [id number] 75mg Take 3 [facility] 25 mg 1-10 tablets by ity of tablet 00:00: mouth [place] 00 every Medical morning. Branch lamoTRIgine 2021-03 Yes [id number] 100mg Take 1 Univers (LAMICTAL) 1-10 tablet by ity of 100 mg 00:00: mouth at [place] tablet 00 bedtime. Medical Branch lamoTRIgine 2021-03 Yes [id number] 75mg Take 3 Univers 25 mg 1-10 tablets by ity of tablet 00:00: mouth [place] 00 every Medical morning. Branch lamoTRIgine 2021-03 Yes [id number] 100mg Take 1 Univers (LAMICTAL) 1-10 tablet by ity of 100 mg 00:00: mouth at [place] tablet 00 bedtime. Medical Branch lamoTRIgine 2021-03 Yes [id number] 75mg Take 3 Univers 25 mg 1-10 tablets by ity of tablet 00:00: mouth [place] 00 every Medical morning. Branch lamoTRIgine 2021-03 Yes [id number] 100mg Take 1 Univers (LAMICTAL) 1-10 tablet by ity of 100 mg 00:00: mouth at [place] tablet 00 bedtime. Medical Branch lamoTRIgine 2021-03 Yes [id number] 75mg Take 3 Univers 25 mg 1-10 tablets by ity of tablet 00:00: mouth [place] 00 every Medical morning. Branch lamoTRIgine 2021-03 Yes [id number] 100mg Take 1 Univers (LAMICTAL) 1-10 tablet by ity of 100 mg 00:00: mouth at [place] tablet 00 bedtime. Medical Branch lamoTRIgine 2021-03 Yes [id number] 75mg Take 3 Univers 25 mg 1-10 tablets by ity of tablet 00:00: mouth [place] 00 every Medical morning. Branch lamoTRIgine 2021-03 Yes [id number] 100mg Take 1 Univers (LAMICTAL) 1-10 tablet by ity of 100 mg 00:00: mouth at [place] tablet 00 bedtime. Medical Branch lamoTRIgine 2021-03 Yes [id number] 75mg Take 3 Univers 25 mg 1-10 tablets by ity of tablet 00:00: mouth [place] 00 every Medical morning. Branch lamoTRIgine 2021-03 Yes [id number] 100mg Take 1 Univers (LAMICTAL) 1-10 tablet by ity of 100 mg 00:00: mouth at [place] tablet 00 bedtime. Medical Branch lamoTRIgine 2021-03 Yes [id number] 75mg Take 3 Univers 25 mg 1-10 tablets by ity of tablet 00:00: mouth [place] 00 every Medical morning. Branch lamoTRIgine 2021-03 Yes [id number] 100mg Take 1 Univers (LAMICTAL) 1-10 tablet [...] 00 Medical combo pack Branch SELECT-OB + 2022-1 Yes Univer s DHA 29 mg 0-29 [...] 2021-03- No Unive rs DHA 29 mg 0-02-12 ity of iron-1 mg 00:00: 00:00 [place] -250 mg 00 :00 Medical combo pack Branch foLIC acid 2021-03- No [id number] 4mg Take 4 Univers 1 mg tablet 0-27 12-27 tablets by i ty of 00:00: 05:59 mouth in [place] 00 :00 the Medical morning Branch for 60 days. foLIC acid 2021-03- No [id number] 4mg Take 4 Univers 1 mg tablet 0-27 12-27 tablets by i ty of 00:00: 05:59 mouth in [place] 00 :00 the Medical morning Branch for 60 days. foLIC acid 2021-03- No [id number] 4mg Take 4 Univers 1 mg tablet 0-27 - tablets by i ty of 00:00: 05:59 mouth in [place] 00 :00 the Medical morning Branch for 60 days. foLIC acid 2021-03- No [id number] 4mg Take 4 Univers 1 mg tablet 0-04 03- tablets by i ty of 00:00: 05:59 mouth in [place] 00 :00 the Medical morning Branch for 60 days. foLIC acid 2021-03- No [id number] 4mg Take 4 Univers 1 mg tablet 0-04 03- tablets by i ty of 00:00: 05:59 mouth in [place] 00 :00 the Medical morning Branch for 60 days. foLIC acid 2021-03- No [id number] 4mg Take 4 Univers 1 mg tablet 0-27 12-27 tablets by i ty of 00:00: 05:59 mouth in [place] 00 :00 the Medical morning Branch for 60 days. foLIC acid 2021-03- No [id number] 4mg Take 4 Univers 1 mg tablet 0-27 12-27 tablets by i ty of 00:00: 05:59 mouth in [place] 00 :00 the Medical morning Branch for 60 days. foLIC acid 2021-03- No [id number] 4mg Take 4 Univers 1 mg tablet 0-27 12-27 tablets by i ty of 00:00: 05:59 mouth in [place] 00 :00 the Medical morning Branch for 60 days. foLIC acid 2021-03- No [id number] 4mg Take 4 Univers 1 mg tablet 0-27 12-27 tablets by i ty of 00:00: 05:59 mouth in [place] 00 :00 the Medical morning Branch for 60 days. foLIC acid 2021-03- No [id number] 4mg Take 4 Univers 1 mg tablet 0-27 12-27 tablets by i ty of 00:00: 05:59 mouth in [place] 00 :00 the Medical morning Branch for 60 days. foLIC acid 2021-03- No [id number] 4mg Take 4 Univers 1 mg tablet 0-27 12-27 tablets by i ty of 00:00: 05:59 mouth in [place] 00 :00 the Medical morning Branch for 60 days. foLIC acid 2021-03- No [id number] 4mg Take 4 Univers 1 mg tablet 0-27 12-27 tablets by i ty of 00:00: 05:59 mouth in [place] 00 :00 the Medical morning Branch for 60 days. foLIC acid 2021-03- No [id number] 4mg Take 4 Univers 1 mg tablet 0-27 12-27 tablets by i ty of 00:00: 05:59 mouth in [place] 00 :00 the [facility] morning Branch for 60 days. foLIC acid 2021-03- No [id number] 4mg Take 4 Univers 1 mg tablet 0-27 12-27 tablets by i ty of 00:00: 05:59 mouth in [place] 00 :00 the [facility] morning Branch for 60 days. foLIC acid 2021-03- No [id number] 4mg Take 4 Univers 1 mg tablet 0-27 12-27 tablets by i ty of 00:00: 05:59 mouth in [place] 00 :00 the [facility] morning Branch for 60 days. foLIC acid 2021-03- No [id number] 4mg Take 4 Univers 1 mg tablet 0-27 12-27 tablets by i ty of 00:00: 05:59 mouth in [place] 00 :00 the Medical morning Branch for 60 days. foLIC acid 2021-03- No [id number] 4mg Take 4 Univers 1 mg tablet 0-27 12-27 tablets by i ty of 00:00: 05:59 mouth in [place] 00 :00 the Medical morning Branch for 60 days. foLIC acid 2021-03- No [id number] 4mg Take 4 Univers 1 mg tablet 0-27 12-27 tablets by i ty of 00:00: 05:59 mouth in [place] 00 :00 the Medical morning Branch for 60 days. foLIC acid 2021-03- No [id number] 4mg Take 4 Univers 1 mg tablet 0-27 12-27 tablets by i ty of 00:00: 05:59 mouth in [place] 00 :00 the Medical morning Branch for 60 days. foLIC acid 2021-03- No [id number] 4mg Take 4 [facility] 1 mg tablet 0-27 12-27 tablets by i ty of 00:00: 05:59 mouth in [place] 00 :00 the Medical morning Branch for 60 days. foLIC acid 2021-03- No [id number] 4mg Take 4 [facility] 1 mg tablet 0-27 12-27 tablets by i ty of 00:00: 05:59 mouth in [place] 00 :00 the Medical morning Branch for 60 days. foLIC acid 2021-03- No [id number] 4mg Take 4 [facility] 1 mg tablet 0-27 12-27 tablets by i ty of 00:00: 05:59 mouth in [place] 00 :00 the Medical morning Branch for 60 days. foLIC acid 2021-03- No [id number] 4mg Take 4 [facility] 1 mg tablet 0-27 12-27 tablets by i ty of 00:00: 05:59 mouth in [place] 00 :00 the Medical morning Branch for 60 days. foLIC acid 2021-03- No [id number] 4mg Take 4 [facility] 1 mg tablet 0-27 12-27 tablets by i ty of 00:00: 05:59 mouth in [place] 00 :00 the Medical morning Branch for 60 days. foLIC acid 2021-03- No [id number] 4mg Take 4 [facility] 1 mg tablet 0-27 12-27 tablets by i ty of 00:00: 05:59 mouth in [place] 00 :00 the Medical morning Branch for 60 days. foLIC acid 2021-03- No [id number] 4mg Take 4 [facility] 1 mg tablet 0-27 12-27 tablets by i ty of 00:00: 05:59 mouth in [place] 00 :00 the Medical morning Branch for 60 days. foLIC acid 2021-03- No [id number] 4mg Take 4 [facility] 1 mg tablet 0-27 12-27 tablets by i ty of 00:00: 05:59 mouth in [place] 00 :00 the Medical morning Branch for 60 days. foLIC acid 2021-03- No [id number] 4mg Take 4 [facility] 1 mg tablet [...] 4 Medica l HOURS Branch NEEDED albuterol 2022-1 Yes INHALE 1 Univ ers 90 0-11 [...] 00 MOUTH ONCE Med ical DAILY IN [place] THE MORNING lamoTRIgine 2021-03 Yes CHEW AND [facility] [place] 25 mg 0-06 SWALLOW 2 ity of disintegrat 00:00: TABLETS BY [place] ing tablet 00 MOUTH ONCE Med ical DAILY IN [place] THE MORNING lamoTRIgine 2021-03 Yes CHEW AND [facility] [place] 25 mg 0-06 SWALLOW 2 ity of disintegrat 00:00: TABLETS BY [place] ing tablet 00 MOUTH ONCE Med ical DAILY IN [place] THE MORNING lamoTRIgine 2021-03 Yes CHEW AND [place] 25 mg 0-06 SWALLOW 2 ity of disintegrat 00:00: TABLETS BY [place] ing tablet 00 MOUTH ONCE Med ical DAILY IN [place] THE MORNING lamoTRIgine 2021-03 Yes CHEW AND [facility] [place] 25 mg 0-06 SWALLOW 2 ity of disintegrat 00:00: TABLETS BY [place] ing tablet 00 MOUTH ONCE Med ical DAILY IN [place] THE MORNING lamoTRIgine 2021-03 Yes CHEW AND [place] 25 mg 0-06 SWALLOW 2 ity of disintegrat 00:00: TABLETS BY [place] ing tablet 00 MOUTH ONCE Med ical DAILY IN [place] THE MORNING lamoTRIgine 2021-03 Yes CHEW AND [facility] [place] 25 mg 0-06 SWALLOW 2 ity of disintegrat 00:00: TABLETS BY [place] ing tablet 00 MOUTH ONCE Med ical DAILY IN [place] THE MORNING lamoTRIgine 2021-03 Yes CHEW AND [facility] [place] 25 mg 0-06 SWALLOW 2 ity of disintegrat 00:00: TABLETS BY [place] ing tablet 00 MOUTH ONCE Med ical DAILY IN [place] THE MORNING lamoTRIgine 2021-03 Yes CHEW AND [facility] [place] 25 mg 0-06 SWALLOW 2 ity of disintegrat 00:00: TABLETS BY [place] ing tablet 00 MOUTH ONCE Med ical DAILY IN [place] THE MORNING lamoTRIgine 2021-03 Yes CHEW AND [facility] [place] 25 mg 0-06 SWALLOW 2 ity of disintegrat 00:00: TABLETS BY [place] ing tablet 00 MOUTH ONCE Med ical DAILY IN [place] THE MORNING lamoTRIgine 2021-03 Yes CHEW AND [facility] [place] 25 mg 0-06 SWALLOW 2 ity of disintegrat 00:00: TABLETS BY [place] ing tablet 00 MOUTH ONCE Med ical DAILY IN [place] THE MORNING lamoTRIgine 2021-03 No CHEW AND U nivers 25 mg 0-08 18-05 SWALLOW 2 ity of disintegrat 00:00: 00:00 TABLETS BY [place] ing tablet 00 :00 MOUTH ONCE Med ical DAILY IN Branch THE MORNING lamoTRIgine 2021-03- No CHEW AND U nivers 25 mg 0- 12-05 SWALLOW 2 ity of disintegrat 00:00: [...] 18:22: mouth at [place] tablet [address] lamoTRIgine Yes 100mg Take 100 U nivers (LAMICTAL) 9-25 mg by ity of 100 mg 18:22: mouth at [place] tablet [address] lamoTRIgine Yes 100mg Take 100 U nivers (LAMICTAL) 9-25 mg by ity of 100 mg 18:22: mouth at [place] tablet [address] lamoTRIgine Yes 100mg Take 100 U nivers (LAMICTAL) 9-25 mg by ity of 100 mg 18:22: mouth at [place] tablet [address] lamoTRIgine Yes 100mg Take 100 U nivers (LAMICTAL) 9-25 mg by ity of 100 mg 18:22: mouth at [place] tablet [address] lamoTRIgine 0 Yes 100mg Take 100 U nivers (LAMICTAL) 9-25 mg by ity of 100 mg 18:22: mouth at [place] tablet [address] lamoTRIgine 0 Yes 100mg Take 100 U nivers (LAMICTAL) 9-25 mg by ity of 100 mg 18:22: mouth at [place] tablet 12 bedtime. Medical 25 [facility] Branch lamoTRIgine 0 Yes 100mg Take 100 U nivers (LAMICTAL) 9-25 mg by ity of 100 mg 18:22: mouth at [place] tablet 12 bedtime. Medical 25 [facility] Branch lamoTRIgine Yes 100mg Take 100 U nivers (LAMICTAL) 9-25 mg by ity of 100 mg 18:22: mouth at [place] tablet 12 bedtime. Medical 25 [facility] Branch lamoTRIgine 0 Yes 100mg Take 100 U nivers (LAMICTAL) 9-25 mg by ity of 100 mg 18:22: mouth at [place] tablet 12 bedtime. Medical 25 [facility] Branch lamoTRIgine Yes 100mg Take 100 U nivers (LAMICTAL) 9-25 mg by ity of 100 mg 18:22: mouth at [place] tablet 12 bedtime. Medical 25 [facility] Branch lamoTRIgine Yes 100mg Take 100 U nivers (LAMICTAL) 9-25 mg by ity of 100 mg 18:22: mouth at [place] tablet 12 bedtime. Medical 25 [facility] Branch lamoTRIgine Yes 100mg Take 100 U nivers (LAMICTAL) 9-25 mg by ity of 100 mg 18:22: mouth at [place] tablet 12 bedtime. Medical 25 [facility] Branch lamoTRIgine Yes 100mg Take 100 U nivers (LAMICTAL) 9-25 mg by ity of 100 mg 18:22: mouth at [place] tablet 12 bedtime. Medical 25 [facility] Branch lamoTRIgine Yes 100mg Take 100 U nivers (LAMICTAL) 9-25 mg by ity of 100 mg 18:22: mouth at [place] tablet 12 bedtime. Medical 25 [facility] Branch lamoTRIgine 0 Yes 100mg Take 100 U nivers (LAMICTAL) 9-25 mg by ity of 100 mg 18:22: mouth at [place] tablet 12 bedtime. Medical 25 [facility] Branch lamoTRIgine Yes 100mg Take 100 U nivers (LAMICTAL) 9-25 mg by ity of 100 mg 18:22: mouth at [place] tablet 12 bedtime. Medical 25 [facility] Branch lamoTRIgine Yes 100mg Take 100 U nivers (LAMICTAL) 9-25 mg by ity of 100 mg 18:22: mouth at [place] tablet [address] Branch lamoTRIgine 0 Yes 100mg Take 100 U nivers (LAMICTAL) 9-25 mg by ity of 100 mg 18:22: mouth at [place] tablet [address] Branch lamoTRIgine 0 Yes 100mg Take 100 U nivers (LAMICTAL) 9-25 mg by ity of 100 mg 18:22: mouth at [place] tablet [address] Branch lamoTRIgine Yes 100mg Take 100 U nivers (LAMICTAL) 9-25 mg by ity of 100 mg 18:22: mouth at [place] tablet [address] lamoTRIgine Yes 100mg Take 100 U nivers (LAMICTAL) 9-25 mg by ity of 100 mg 18:22: mouth at [place] tablet [address] lamoTRIgine Yes 100mg Take 100 U nivers (LAMICTAL) 9-25 mg by ity of 100 mg 18:22: mouth at [place] tablet [address] Branch lamoTRIgine Yes 100mg Take 100 U nivers (LAMICTAL) 9-25 mg by ity of 100 mg 18:22: mouth at [place] tablet [address] lamoTRIgine Yes 100mg Take 100 U nivers (LAMICTAL) 9-25 mg by ity of 100 mg 18:22: mouth at [place] tablet [address] lamoTRIgine Yes 100mg Take 100 U nivers (LAMICTAL) 9-25 mg by ity of 100 mg 18:22: mouth at [place] tablet [address] cyclobenzap 2021- No [id number] 10mg Take 1 [facility] rine 10 mg 9-25 10-01 tablet by ity of tablet 00:00: 04:59 mouth in [place] 00 :[address] [facility] Branch and 1 tablet at noon and 1 tablet in the evening. Do all this for 15 doses. cyclobenzap 2-0 2021- No [id number] 10mg Take 1 [facility] rine 10 mg 9-25 10-01 tablet by ity of tablet 00:00: 04:59 mouth in [place] 00 :00 the [facility] Branch and 1 tablet at noon and 1 tablet in the evening. Do all this for 15 doses. hydrOXYzine 2021-0 Yes Univer s 25 mg/mL 9-16 ity of injection 00:00: [place] 00 Medical Branch hydrOXYzine 2021-0 Yes Univer s 25 mg/mL 9-16 ity of injection 00:00: [place] [address] Medical Branch hydrOXYzine 2021-0 Yes Univer s 25 mg/mL 9-16 ity of injection 00:00: [place] [address] Medical Branch hydrOXYzine 2021-0 Yes Univer s 25 mg/mL 9-16 ity of injection 00:00: [place] [address] Medical Branch hydrOXYzine 2021-0 Yes Univer s 25 mg/mL 9-16 ity of injection 00:00: [place] [address] Medical Branch hydrOXYzine 2021-0 Yes Univer s 25 mg/mL 9-16 ity of injection 00:00: [place] [address] Medical Branch hydrOXYzine 2-0 Yes Univer s 25 mg/mL 9-16 ity of injection 00:00: [place] [address] Medical Branch hydrOXYzine 2021-0 Yes Univer s 25 mg/mL 9-16 ity of injection 00:00: [place] [address] Medical Branch hydrOXYzine 2-0 Yes Univer s 25 mg/mL 9-16 ity of injection 00:00: [place] 00 Medical Branch hydrOXYzine 2-0 Yes Univer s 25 mg/mL 9-16 ity of injection 00:00: [place] [address] Medical Branch hydrOXYzine 2-0 Yes Univer s 25 mg/mL 9-16 ity of injection 00:00: [place] [address] Medical Branch hydrOXYzine 2-0 Yes Univer s 25 mg/mL 9-16 ity of injection 00:00: [place] [address] Medical Branch hydrOXYzine 2-0 Yes Univer s 25 mg/mL 9-16 ity of injection 00:00: [place] [address] Medical Branch hydrOXYzine 2-0 Yes Univer s 25 mg/mL 9-16 ity of injection 00:00: [place] 00 Medical Branch hydrOXYzine 2-0 Yes Univer s 25 mg/mL 9-16 ity of injection 00:00: [place] 00 Medical Branch hydrOXYzine 2-0 Yes Univer s 25 mg/mL 9-16 ity of injection 00:00: [place] 00 Medical Branch hydrOXYzine 2-0 Yes Univer s 25 mg/mL 9-16 ity of injection 00:00: [place] [address] Medical Branch hydrOXYzine 2-0 Yes Univer s 25 mg/mL 9-16 ity of injection 00:00: [place] [address] Medical Branch hydrOXYzine 2-0 Yes Univer s 25 mg/mL 9-16 ity of injection 00:00: [place] [address] Medical Branch hydrOXYzine 2021-0 Yes Univer s 25 mg/mL 9-16 ity of injection 00:00: [place] [address] Medical Branch hydrOXYzine 2021-0 Yes Univer s 25 mg/mL 9-16 ity of injection 00:00: [place] [address] Medical Branch hydrOXYzine 2-0 Yes Univer s 25 mg/mL 9-16 ity of injection 00:00: [place] [address] Medical Branch hydrOXYzine 2-0 Yes Univer s 25 mg/mL 9-16 ity of injection 00:00: [place] [address] Medical Branch hydrOXYzine 2021-0 Yes Univer s 25 mg/mL 9-16 ity of injection 00:00: [place] [address] Medical Branch hydrOXYzine 2-0 Yes Univer s 25 mg/mL 9-16 ity of injection 00:00: [place] [address] Medical Branch hydrOXYzine 2-0 2- No Unive rs 25 mg/mL 9-16 12-05 ity of injection 00:00: 00:00 [place] 00 :00 Medical Branch hydrOXYzine 2022-0 2022- No Unive rs 25 mg/mL 9-16 12-05 ity of injection 00:00: 00:00 [place] 00 :00 Medical Branch hydrOXYzine 2-0 Yes Univer s 25 mg 9-13 ity of capsule 00:00: [place] [address] Medical Branch hydrOXYzine 2-0 Yes Univer s 25 mg 9-13 ity of capsule 00:00: [place] [address] Medical Branch hydrOXYzine 2-0 Yes Univer s 25 mg 9-13 ity of capsule 00:00: [place] [address] Medical Branch hydrOXYzine 2022-0 Yes Univer s 25 mg 9-13 ity of capsule 00:00: [place] 00 Medical Branch hydrOXYzine 2021-0 2- No Unive rs 25 mg 9-13 11-10 ity of capsule 00:00: 00:00 [place] 00 :00 Medical Branch hydrOXYzine 2021-0 2- No Unive rs 25 mg 9-13 11-10 ity of capsule 00:00: 00:00 [place] 00 :00 Medical Branch hydrOXYzine 2-0 2- No Unive rs 25 mg 9-13 11-10 ity of capsule 00:00: 00:00 [place] 00 :00 Medical Branch hydrOXYzine 2-0 2- No Unive rs 25 mg 9-13 11-10 ity of capsule 00:00: 00:00 [place] 00 :00 Medical Branch hydrOXYzine 2021-0 2- No Unive rs 25 mg 9-13 11-10 ity of capsule 00:00: 00:00 [place] 00 :00 Medical Branch lamoTRIgine 2022-0 Yes 25mg Take 25 mg [facility] 25 mg 9-12 by mouth ity of tablet 00:00: every [place] 00 morning. Medical Branch lamoTRIgine 2021-0 Yes 25mg Take 25 mg [facility] 25 mg 9-12 by mouth ity of tablet 00:00: every [place] 00 morning. Medical Branch lamoTRIgine 2021-0 Yes 25mg Take 25 mg [facility] 25 mg 9-12 by mouth ity of tablet 00:00: every [place] 00 morning. Medical Branch lamoTRIgine 2-0 Yes 25mg Take 25 mg [facility] 25 mg 9-12 by mouth ity of tablet 00:00: every [place] 00 morning. Medical Branch lamoTRIgine 2-0 2022- No 25mg Take 25 mg [facility] 25 mg 9-12 11-10 by mouth ity of tablet 00:00: 00:00 [facility] 00 :00 morning. Medical Branch lamoTRIgine 2022-0 2022- No 25mg Take 25 mg [facility] 25 mg 9-12 11-10 by mouth ity of tablet 00:00: 00:00 [facility] 00 :00 morning. Medical Branch lamoTRIgine 2-0 2022- No 25mg Take 25 mg [facility] 25 mg 9-12 11-10 by mouth ity of tablet 00:00: 00:00 [facility] 00 :00 morning. Medical Branch lamoTRIgine 2021-0 2021- No 25mg Take 25 mg [facility] 25 mg 9 11-10 by mouth ity of tablet 00:00: 00:00 every [place] 00 :00 morning. Medical Branch lamoTRIgine 2021-0 2021- No 25mg Take 25 mg [facility] 25 mg 9-12 11-10 by mouth ity of tablet 00:00: 00:00 every [place] 00 :00 morning. Medical Branch lamoTRIgine 2021-0 Yes 100mg Take 100 U nivers (LAMICTAL) 8-29 mg by ity of 100 mg 15:28: mouth at [place] tablet [address] Branch lamoTRIgine 2021-0 Yes 100mg Take 100 U nivers (LAMICTAL) 8-29 mg by ity of 100 mg 15:28: mouth at [place] tablet [address] Branch lamoTRIgine 2021-0 Yes 100mg Take 100 U nivers (LAMICTAL) 8-29 mg by ity of 100 mg 15:28: mouth at [place] tablet [address] Branch lamoTRIgine 0 Yes 100mg Take 100 U nivers (LAMICTAL) 8-29 mg by ity of 100 mg 15:28: mouth at [place] tablet [address] Branch lamoTRIgine 0 Yes 100mg Take 100 U nivers (LAMICTAL) 8-29 mg by ity of 100 mg 15:28: mouth at [place] tablet [address] Branch lamoTRIgine 2021-0 Yes 100mg Take 100 U nivers (LAMICTAL) 8-29 mg by ity of 100 mg 15:28: mouth at [place] tablet [address] Branch lamoTRIgine 2021-0 Yes 100mg Take 100 U nivers (LAMICTAL) 8-29 mg by ity of 100 mg 15:28: mouth at [place] tablet [address] Branch lamoTRIgine 2021-0 Yes 100mg Take 100 U nivers (LAMICTAL) 8-29 mg by ity of 100 mg 15:28: mouth at [place] tablet [address] Branch lamoTRIgine 2022-0 Yes 100mg Take 100 U nivers (LAMICTAL) 8-29 mg by ity of 100 mg 15:28: mouth at [place] tablet [address] lamoTRIgine Yes 100mg Take 100 U nivers (LAMICTAL) 8-29 mg by ity of 100 mg 15:28: mouth at [place] tablet [address] lamoTRIgine Yes 100mg Take 100 U nivers (LAMICTAL) 8-29 mg by ity of 100 mg 15:28: mouth at [place] tablet [address] lamoTRIgine Yes 100mg Take 100 U nivers (LAMICTAL) 8-29 mg by ity of 100 mg 15:28: mouth at [place] tablet [address] lamoTRIgine Yes 100mg Take 100 U nivers (LAMICTAL) 8-29 mg by ity of 100 mg 15:28: mouth at [place] tablet [address] lamoTRIgine Yes Univer s (LAMICTAL) 6-15 ity of 100 mg 00:00: [place] tablet 00 [facility] lamoTRIgine 0 Yes Univer s (LAMICTAL) 6-15 ity of 100 mg 00:00: [place] tablet 00 [facility] lamoTRIgine 0 Yes Univer s (LAMICTAL) 6-15 ity of 100 mg 00:00: [place] tablet 00 [facility] lamoTRIgine 0 Yes Univer s (LAMICTAL) 6-15 ity of 100 mg 00:00: [place] tablet 00 [facility] lamoTRIgine 2021-0 2021- No Unive rs (LAMICTAL) 6-15 11-10 ity of 100 mg 00:00: 00:00 [place] tablet 00 :00 [facility] lamoTRIgine 2021-0 2021- No Unive rs (LAMICTAL) 6-15 11-10 ity of 100 mg 00:00: 00:00 [place] tablet 00 :00 [facility] lamoTRIgine 2021-0 2021- No Unive rs (LAMICTAL) 6-15 11-10 ity of 100 mg 00:00: 00:00 [place] tablet 00 :00 [facility] lamoTRIgine 2021-0 2021- No Unive rs (LAMICTAL) 6-15 11-10 ity of 100 mg 00:00: 00:00 [place] tablet 00 :00 Medical Branch lamoTRIgine 2021-0 2- No Unive rs (LAMICTAL) 6-15 11-10 ity of 100 mg 00:00: 00:00 [place] tablet 00 :00 Medical Branch busPIRone 2-0 Yes [id number] 18.75mg Take 2.5 Univers 7.5 mg 5-12 tablets by ity of tablet 00:00: mouth 3 [place] (three) Medical times Branch daily. busPIRone 2-0 Yes [id number] 18.75mg Take 2.5 Univers 7.5 mg 5-12 tablets by ity of tablet 00:00: mouth 3 [place] ([facility]) Medical times Branch daily. busPIRone 2-0 Yes [id number] 18.75mg Take 2.5 Univers 7.5 mg 5-12 tablets by ity of tablet 00:00: [facility] [place] ([facility]) Medical times Branch daily. busPIRone 2-0 Yes [id number] 18.75mg Take 2.5 Univers 7.5 mg 5-12 tablets by ity of tablet 00:00: [facility] [place] ([facility]) Medical times Branch daily. busPIRone 2-0 Yes [id number] 18.75mg Take 2.5 Univers 7.5 mg 5-12 tablets by ity of tablet 00:00: mouth 3 [place] ([facility]) Medical times Branch daily. busPIRone 2-0 Yes [id number] 18.75mg Take 2.5 [facility] 7.5 mg 5-12 tablets by ity of tablet 00:00: mouth 3 [place] (three) Medical times Branch daily. busPIRone 2022-0 Yes [id number] 18.75mg Take 2.5 [facility] 7.5 mg 5-12 tablets by ity of tablet 00:00: mouth 3 [place] (three) Medical times Branch daily. busPIRone 2-0 Yes [id number] 18.75mg Take 2.5 [facility] 7.5 mg 5-12 tablets by ity of tablet 00:00: mouth 3 [place] ([facility]) Medical times Branch daily. busPIRone 2022-0 Yes [id number] 18.75mg Take 2.5 [facility] 7.5 mg 5-12 tablets by ity of tablet 00:00: mouth (three) Medical times Branch daily. busPIRone 2022-0 Yes [id number] 18.75mg Take 2.5 [facility] 7.5 mg 5-12 tablets by ity of tablet 00:00: [place] (three) Medical times Branch daily. busPIRone 2022-0 Yes [id number] 18.75mg Take 2.5 [facility] 7.5 mg 5-12 tablets by ity of tablet 00:00: [place] (three) Medical times Branch daily. busPIRone 2022-0 Yes [id number] 18.75mg Take 2.5 [facility] 7.5 mg 5-12 tablets by ity of tablet 00:00: [place] (three) Medical times Branch daily. busPIRone 2022-0 Yes [id number] 18.75mg Take 2.5 [facility] 7.5 mg 5-12 tablets by ity of tablet 00:00: [place] (three) Medical times Branch daily. busPIRone 2022-0 Yes [id number] 18.75mg Take 2.5 [facility] 7.5 mg 5-12 tablets by ity of tablet 00:00: mouth (three) Medical times Branch daily. busPIRone 2022-0 Yes [id number] 18.75mg Take 2.5 [facility] 7.5 mg 5-12 tablets by ity of tablet 00:00: [place] (three) Medical times Branch daily. busPIRone 2022-0 Yes [id number] 18.75mg Take 2.5 [facility] 7.5 mg 5-12 tablets by ity of tablet 00:00: [place] (three) Medical times Branch daily. busPIRone 2022-0 Yes [id number] 18.75mg Take 2.5 [facility] 7.5 mg 5-12 tablets by ity of tablet 00:00: [place] (three) Medical times Branch daily. busPIRone 2022-0 Yes [id number] 18.75mg Take 2.5 [facility] 7.5 mg 5-12 tablets by ity of tablet 00:00: mouth (three) Medical times Branch daily. busPIRone 2022-0 Yes [id number] 18.75mg Take 2.5 [facility] 7.5 mg 5-12 tablets by ity of tablet 00:00: [facility] (three) Medical times Branch daily. busPIRone 2022-0 Yes [id number] 18.75mg Take 2.5 [facility] 7.5 mg 5-12 tablets by ity of tablet 00:00: mouth (three) Medical times Branch daily. busPIRone 2022-0 Yes [id number] 18.75mg Take 2.5 [facility] 7.5 mg 5-12 tablets by ity of tablet 00:00: mouth ([facility]) Medical times Branch daily. busPIRone 2022-0 Yes [id number] 18.75mg Take 2.5 [facility] 7.5 mg 5-12 tablets by ity of tablet 00:00: [facility] ([facility]) Medical times Branch daily. busPIRone 2022-0 Yes [id number] 18.75mg Take 2.5 [facility] 7.5 mg 5-12 tablets by ity of tablet 00:00: mouth ([facility]) Medical times Branch daily. busPIRone 2022-0 Yes [id number] 18.75mg Take 2.5 [facility] 7.5 mg 5-12 tablets by ity of tablet 00:00: [facility] ([facility]) Medical times Branch daily. busPIRone 2022-0 Yes [id number] 18.75mg Take 2.5 [facility] 7.5 mg 5-12 tablets by ity of tablet 00:00: [facility] ([facility]) Medical times Branch daily. busPIRone 2022-0 Yes [id number] 18.75mg Take 2.5 [facility] 7.5 mg 5-12 tablets by ity of tablet 00:00: mouth [place] (three) Medical times Branch daily. busPIRone 2022-0 Yes [id number] 18.75mg Take 2.5 [facility] 7.5 mg 5-12 tablets by ity of tablet 00:00: mouth (three) Medical times Branch daily. busPIRone 2022-0 Yes [id number] 18.75mg Take 2.5 [facility] 7.5 mg 5-12 tablets by ity of tablet 00:00: mouth (three) Medical times Branch daily. busPIRone 2022-0 Yes [id number] 18.75mg Take 2.5 [facility] 7.5 mg 5-12 tablets by ity of tablet 00:00: mouth (three) Medical times Branch daily. busPIRone 2022-0 Yes [id number] 18.75mg Take 2.5 [facility] 7.5 mg 5-12 tablets by ity of tablet 00:00: mouth (three) Medical times Branch daily. busPIRone 2022-0 Yes [id number] 18.75mg Take 2.5 [facility] 7.5 mg 5-12 tablets by ity of tablet 00:00: mouth (three) Medical times Branch daily. busPIRone 2022-0 Yes [id number] 18.75mg Take 2.5 [facility] 7.5 mg 5-12 tablets by ity of tablet 00:00: mouth (three) Medical times Branch daily. busPIRone 2022-0 Yes [id number] 18.75mg Take 2.5 [facility] 7.5 mg 5-12 tablets by ity of tablet 00:00: mouth (three) Medical times Branch daily. busPIRone 2022-0 Yes [id number] 18.75mg Take 2.5 [facility] 7.5 mg 5-12 tablets by ity of tablet 00:00: mouth (three) Medical times Branch daily. busPIRone 2022-0 Yes [id number] 18.75mg Take 2.5 [facility] 7.5 mg 5-12 tablets by ity of tablet 00:00: mouth (three) Medical times Branch daily. busPIRone 2022-0 Yes [id number] 18.75mg Take 2.5 [facility] 7.5 mg 5-12 tablets by ity of tablet 00:00: mouth (three) Medical times Branch daily. busPIRone 2022-0 Yes [id number] 18.75mg Take 2.5 [facility] 7.5 mg 5-12 tablets by ity of tablet 00:00: mouth (three) Medical times Branch daily. busPIRone 2022-0 Yes [id number] 18.75mg Take 2.5 [facility] 7.5 mg 5-12 tablets by ity of tablet 00:00: mouth [place] (three) Medical times Branch daily. busPIRone 2022-0 Yes [id number] 18.75mg Take 2.5 [facility] 7.5 mg 5-12 tablets by ity of tablet 00:00: mouth [place] (three) Medical times Branch daily. busPIRone 2022-0 Yes [id number] 18.75mg Take 2.5 [facility] 7.5 mg 5-12 tablets by ity of tablet 00:00: mouth [place] (three) Medical times Branch daily. busPIRone 2022-0 Yes [id number] 18.75mg Take 2.5 [facility] 7.5 mg 5-12 tablets by ity of tablet 00:00: [facility] [place] (three) Medical times Branch daily. busPIRone 2022-0 Yes [id number] 18.75mg Take 2.5 [facility] 7.5 mg 5-12 tablets by ity of tablet 00:00: [facility] [place] (three) Medical times Branch daily. busPIRone 2022-0 Yes [id number] 18.75mg Take 2.5 [facility] 7.5 mg 5-12 tablets by ity of tablet 00:00: [facility] [place] (three) Medical times Branch daily. busPIRone 2022-0 Yes [id number] 18.75mg Take 2.5 [facility] 7.5 mg 5-12 tablets by ity of tablet 00:00: [facility] [place] (three) Medical times Branch daily. busPIRone 2022-0 Yes [id number] 18.75mg Take 2.5 [facility] 7.5 mg 5-12 tablets by ity of tablet 00:00: mouth [place] (three) Medical times Branch daily. busPIRone 2022-0 2022- No [id number] 18.75mg Take 2.5 [facility] 7.5 mg 5-12 12-05 tablets by ity of tablet 00:00: 00:00 [facility] 3 [place] 00 :00 (three) Medical times Branch daily. busPIRone 2022-0 2022- No [id number] 18.75mg Take 2.5 [facility] 7.5 mg 5-12 12-05 tablets by ity of tablet 00:00: 00:00 mouth 3 [place] 00 :00 (three) Medical times Branch daily. Yes [id number] 1{tbl} Take 1 U nivers multivitami 5-05 tablet by ity of n ( 00:00: mouth [place] VITAMIN) 00 daily. Medical tablet Branch Yes [id number] 1{tbl} Take 1 U nivers multivitami 5-05 tablet by ity of n ( 00:00: mouth [place] VITAMIN) 00 daily. Medical tablet Branch Yes [id number] 1{tbl} Take 1 U nivers multivitami 5-05 tablet by ity of n ( 00:00: mouth [place] VITAMIN) 00 daily. Medical tablet Branch Yes [id number] 1{tbl} Take 1 U nivers multivitami 5-05 tablet by ity of n ( 00:00: mouth [place] VITAMIN) 00 daily. Medical tablet Branch Yes [id number] 1{tbl} Take 1 U nivers multivitami 5-05 tablet by ity of n ( 00:00: mouth [place] VITAMIN) 00 daily. Medical tablet Branch Yes [id number] 1{tbl} Take 1 U nivers multivitami 5-05 tablet by ity of n ( 00:00: mouth [place] VITAMIN) 00 daily. Medical tablet Branch Yes [id number] 1{tbl} Take 1 U nivers multivitami 5-05 tablet by ity of n ( 00:00: mouth [place] VITAMIN) 00 daily. Medical tablet Branch Yes [id number] 1{tbl} Take 1 [facility] tablet by [facility] n ( 00:00: mouth [place] [facility]) 00 daily. [facility] tablet [facility] Yes [id number] 1{tbl} Take 1 [facility] ( 00:00: mouth [place] [facility]) 00 daily. [facility] tablet [facility] Yes [id number] 1{tbl} Take 1 [facility] tablet by [facility] ( 00:00: mouth [place] [facility]) 00 daily. [facility] tablet [facility] Yes [id number] 1{tbl} Take 1 [facility] ( 00:00: mouth [place] [facility]) 00 daily. [facility] tablet [facility] Yes [id number] 1{tbl} Take 1 [facility] tablet by [facility] ( 00:00: mouth [place] [facility]) 00 daily. [facility] tablet [facility] Yes [id number] 1{tbl} Take 1 [facility] tablet [facility] ( 00:00: mouth [place] [facility]) 00 daily. [facility] tablet [facility] Yes [id number] 1{tbl} Take 1 [facility] tablet [facility] ( 00:00: mouth [place] [facility]) 00 daily. [facility] tablet [facility] Yes [id number] 1{tbl} Take 1 [facility] by [facility] ( 00:00: mouth [place] [facility]) 00 daily. [facility] tablet [facility] Yes [id number] 1{tbl} Take 1 [facility] tablet by [facility] ( 00:00: mouth [place] [facility]) 00 daily. [facility] tablet [facility] Yes [id number] 1{tbl} Take 1 [facility] tablet by [facility] ( 00:00: mouth [place] [facility]) 00 daily. [facility] tablet [facility] Yes [id number] 1{tbl} Take 1 [facility] tablet by [facility] ( 00:00: mouth [place] [facility]) 00 daily. [facility] tablet [facility] Yes [id number] 1{tbl} Take 1 [facility] tablet by [facility] ( 00:00: mouth [place] [facility]) 00 daily. [facility] tablet [facility] Yes [id number] 1{tbl} Take 1 [facility] tablet by [facility] ( 00:00: mouth [place] [facility]) 00 daily. [facility] tablet [facility] Yes [id number] 1{tbl} Take 1 [facility] tablet by [facility] ( 00:00: mouth [place] [facility]) 00 daily. [facility] tablet [facility] Yes [id number] 1{tbl} Take 1 [facility] tablet by [facility] ( 00:00: mouth [place] [facility]) 00 daily. [facility] tablet [facility] Yes [id number] 1{tbl} Take 1 [facility] tablet by [facility] ( 00:00: mouth [place] [facility]) 00 daily. [facility] tablet [facility] Yes [id number] 1{tbl} Take 1 [facility] tablet by [facility] ( 00:00: mouth [place] [facility]) 00 daily. [facility] tablet [facility] Yes [id number] 1{tbl} Take 1 [facility]05 tablet by [facility] ( 00:00: mouth [place] [facility]) 00 daily. [facility] tablet [facility] Yes [id number] 1{tbl} Take 1 [facility]05 tablet by [facility] ( 00:00: mouth [place] [facility]) 00 daily. [facility] tablet [facility] Yes [id number] 1{tbl} Take 1 [facility] tablet by [facility] ( 00:00: mouth [place] [facility]) 00 daily. [facility] tablet [facility] Yes [id number] 1{tbl} Take 1 [facility] tablet [facility] ( 00:00: mouth [place] [facility]) 00 daily. [facility] tablet [facility] Yes [id number] 1{tbl} Take 1 [facility] tablet by [facility] ( 00:00: mouth [place] [facility]) 00 daily. [facility] tablet [facility] Yes [id number] 1{tbl} Take 1 [facility] tablet [facility] ( 00:00: mouth [place] [facility]) 00 daily. [facility] tablet [facility] Yes [id number] 1{tbl} Take 1 [facility] tablet by [facility] ( 00:00: mouth [place] [facility]) 00 daily. [facility] tablet [facility] Yes [id number] 1{tbl} Take 1 [facility] tablet by [facility] ( 00:00: mouth [place] [facility]) 00 daily. [facility] tablet [facility] Yes [id number] 1{tbl} Take 1 [facility]05 tablet by [facility] ( 00:00: mouth [place] [facility]) 00 daily. Medical tablet [facility] Yes [id number] 1{tbl} Take 1 [facility]05 tablet by [facility] ( 00:00: mouth [place] [facility]) 00 daily. [facility] tablet [facility] Yes [id number] 1{tbl} Take 1 [facility] tablet by [facility] ( 00:00: mouth [place] [facility]) 00 daily. [facility] tablet [facility] Yes [id number] 1{tbl} Take 1 [facility]05 tablet by [facility] ( 00:00: mouth [place] [facility]) 00 daily. Medical tablet [facility] Yes [id number] 1{tbl} Take 1 [facility]05 tablet by [facility] ( 00:00: mouth [place] [facility]) 00 daily. Medical tablet [facility] Yes [id number] 1{tbl} Take 1 [facility]05 tablet by [facility] ( 00:00: mouth [place] [facility]) 00 daily. Medical tablet [facility] Yes [id number] 1{tbl} Take 1 [facility]05 tablet by [facility] ( 00:00: mouth [place] [facility]) 00 daily. Medical tablet [facility] Yes [id number] 1{tbl} Take 1 [facility]05 tablet by [facility] ( 00:00: mouth [place] [facility]) 00 daily. Medical tablet [facility] Yes [id number] 1{tbl} Take 1 [facility] 5[facility]05 tablet by [facility] ( 00:00: mouth [place] [facility]) 00 daily. Medical tablet [facility] Yes [id number] 1{tbl} Take 1 [facility]05 tablet by [facility] ( 00:00: mouth [place] [facility]) 00 daily. Medical tablet [facility] Yes [id number] 1{tbl} Take 1 [facility] 5[facility]05 tablet by [facility] ( 00:00: mouth [place] [facility]) 00 daily. Medical tablet Branch Yes [id number] 1{tbl} Take 1 [facility] 5[facility]05 tablet by [facility] ( 00:00: mouth [place] [facility]) 00 daily. Medical tablet Branch Yes [id number] 1{tbl} Take 1 [facility] 5[facility]05 tablet by [facility] n ( 00:00: mouth [place] [facility]) 00 daily. Medical tablet [facility] Yes [id number] 1{tbl} Take 1 [facility] 5[facility]05 tablet by [facility] ( 00:00: mouth [place] [facility]) 00 daily. Medical tablet [facility] Yes [id number] 1{tbl} Take 1 [facility]05 tablet by [facility] ( 00:00: mouth [place] [facility]) 00 daily. Medical tablet Branch 2021- No [id number] 1{tbl} Take 1 [facility] tablet [facility] [place] [facility] :00 daily. [facility] tablet [facility] lithium 600 2020-0 Yes bipolar 600mg QD [...] ukes 00:00: remission [facility] 00 nightly. 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 [place] Immunizations Ordered Filled Immunization Date Status Comments [facility] e Immunization Name Name Rho (d) Immune 2022-02-12 Completed [facility] 00:00:00 [facility] Rho (d) Immune 2022-02-12 Completed [facility] Gl[facility] 00:00:00 [facility] Rho (d) Immune 2022-02-12 Completed [facility] 00:00:00 [place] [facility] Rho (d) Immune 2022-02-12 Completed [facility] Globulin 00:00:00 [facility] [place] [facility] Rho (d) Immune 2022-02-12 Completed [facility] Globulin 00:00:00 [facility] [place] [facility] Rho (d) Immune 2022-02-12 Completed [facility] Globulin 00:00:00 [facility] [place] [facility] Rho (d) Immune 2022-02-12 Completed [facility] Globulin 00:00:00 [facility] [place] [facility] Rho (d) Immune 2022-02-12 Completed [facility] Globulin 00:00:00 [facility] [place] [facility] Rho (d) Immune 2022-02-12 Completed [facility] Globulin 00:00:00 [facility] [place] [facility] Rho (d) Immune 2022-02-12 Completed [facility] Globulin 00:00:00 [facility] [place] [facility] Rho (d) Immune 2022-02-12 Completed [facility] Globulin 00:00:00 [facility] [place] [facility] Rho (d) Immune 2022-02-12 Completed [facility] Globulin 00:00:00 [facility] [place] [facility] Rho (d) Immune 2022-02-12 Completed [facility] Globulin 00:00:00 [facility] [place] [facility] Rho (d) Immune 2022-02-12 Completed [facility] Globulin 00:00:00 [facility] [place] [facility] Rho (d) Immune 2022-02-12 Completed [facility] Globulin 00:00:00 [facility] [place] [facility] Rho (d) Immune 2022-02-12 Completed [facility] Globulin 00:00:00 [facility] [place] [facility] Rho (d) Immune 2022-02-12 Completed [facility] Globulin 00:00:00 [facility] [place] [facility] Rho (d) Immune 2022-02-12 Completed [facility] Globulin 00:00:00 [facility] [place] [facility] Rho (d) Immune 2022-01-02 Completed [facility] Globulin 00:00:00 [facility] [place] [facility] Rho (d) Immune 2022-01-02 Completed [facility] Globulin 00:00:00 [facility] [place] [facility] Rho (d) Immune 2022-01-02 Completed [facility] Globulin 00:00:00 [facility] [place] [facility] Rho (d) Immune 2022-01-02 Completed [facility] Globulin 00:00:00 [facility] [place] [facility] Rho (d) Immune 2022-01-02 Completed [facility] Globulin 00:00:00 [facility] [place] [facility] Rho (d) Immune 2022-01-02 Completed [facility] Globulin 00:00:00 [facility] [place] [facility] Rho (d) Immune 2022-01-02 Completed [facility] Globulin 00:00:00 [facility] [place] [facility] Rho (d) Immune 2022-01-02 Completed [facility] Globulin 00:00:00 [facility] [place] [facility] Rho (d) Immune 2022-01-02 Completed [facility] Globulin 00:00:00 [facility] [place] [facility] Rho (d) Immune 2022-01-02 Completed [facility] Globulin 00:00:00 [facility] [place] [facility] Rho (d) Immune 2022-01-02 Completed [facility] Globulin 00:00:00 [facility] [place] [facility] Rho (d) Immune 2022-01-02 Completed [facility] Globulin 00:00:00 [facility] [place] [facility] Rho (d) Immune 2022-01-02 Completed [facility] Globulin 00:00:00 [facility] [place] [facility] Rho (d) Immune 2022-01-02 Completed [facility] Globulin 00:00:00 [facility] [place] [facility] Rho (d) Immune 2022-01-02 Completed [facility] Globulin 00:00:00 [facility] [place] [facility] Rho (d) Immune 2022-01-02 Completed [facility] Globulin 00:00:00 [facility] [place] [facility] Rho (d) Immune 2022-01-02 Completed [facility] Globulin 00:00:00 [facility] [place] [facility] Rho (d) Immune 2022-01-02 Completed [facility] Globulin 00:00:00 [facility] [place] [facility] Rho (d) Immune 2022-01-02 Completed [facility] Globulin 00:00:00 [facility] [place] [facility] Rho (d) Immune 2022-01-02 Completed [facility] Globulin 00:00:00 [facility] [place] [facility] Rho (d) Immune 2022-01-02 Completed [facility] Globulin 00:00:00 [facility] [place] [facility] Rho (d) Immune 2022-01-02 Completed [facility] Globulin 00:00:00 [facility] [place] [facility] Rho (d) Immune 2022-01-02 Completed [facility] Globulin 00:00:00 [facility] [place] [facility] Rho (d) Immune 2022-01-02 Completed [facility] Globulin 00:00:00 [facility] [place] [facility] Rho (d) Immune 2022-01-02 Completed [facility] Globulin 00:00:00 [facility] Rho (d) Immune 2022-01-02 Completed [facility] Globulin 00:00:00 [facility] Rho (d) Immune 2022-01-02 Completed [facility] Globulin 00:00:00 [facility] [place] [facility] Rho (d) Immune 2022-01-02 Completed [facility] Globulin 00:00:00 [facility] [place] [facility] Rho (d) Immune 2022-01-02 Completed [facility] Globulin 00:00:00 [facility] Rho (d) Immune 2022-01-02 Completed [facility] Globulin 00:00:00 [facility] Rho (d) Immune 2022-01-02 Completed [facility] Globulin 00:00:00 [facility] Rho (d) Immune 2022-01-02 Completed [facility] Globulin 00:00:00 [facility] Rho (d) Immune 2022-01-02 Completed [facility] Globulin 00:00:00 [facility] Rho (d) Immune 2022-01-02 Completed [facility] Globulin 00:00:00 [facility] Rho (d) Immune 2022-01-02 Completed [facility] Globulin 00:00:00 [facility] Rho (d) Immune 2022-01-02 Completed [facility] Globulin 00:00:00 [facility] Rho (d) Immune 2022-01-02 Completed [facility] Globulin 00:00:00 [facility] Rho (d) Immune 2022-01-02 Completed [facility] Globulin 00:00:00 [facility] Rho (d) Immune 2022-01-02 Completed [facility] Globulin 00:00:00 [facility] Rho (d) Immune 2022-01-02 Completed [facility] Globulin 00:00:00 [facility] Rho (d) Immune 2022-01-02 Completed [facility] Globulin 00:00:00 [facility] [place] [facility] Rho (d) Immune 2022-01-02 Completed [facility] Globulin 00:00:00 [facility] Rho (d) Immune 2022-01-02 Completed [facility] Globulin 00:00:00 [facility] [place] [facility] Rho (d) Immune 2022-01-02 Completed [facility] Globulin 00:00:00 [facility] Rho (d) Immune 2022-01-02 Completed [facility] Globulin 00:00:00 [facility] [place] [facility] Rho (d) Immune 2022-01-02 Completed [facility] Globulin 00:00:00 [facility] TDAP 2021-12-17 Completed University of 00:00:00 [facility] TDAP 2021-12-17 Completed [facility] of 00:00:00 [facility] [place] [facility] TDAP 2021-12-17 Completed [facility] of 00:00:00 [facility] TDAP 2021-12-17 Completed University of 00:00:00 [facility] [place] [facility] TDAP 2021-12-17 Completed [facility] of 00:00:00 [facility] TDAP 2021-12-17 Completed [facility] of 00:00:00 [facility] TDAP 2021-12-17 Completed [facility] of 00:00:00 [facility] TDAP 2021-12-17 Completed [facility] of 00:00:00 [facility] TDAP 2021-12-17 Completed [facility] of 00:00:00 [facility] TDAP 2021-12-17 Completed [facility] 00:00:00 [facility] TDAP 2021-12-17 Completed [facility] 00:00:00 [facility] TDAP 2021-12-17 Completed [facility] 00:00:00 [facility] TDAP 2021-12-17 Completed [facility] 00:00:00 [facility] TDAP 2021-12-17 Completed [facility] of 00:00:00 [facility] TDAP 2021-12-17 Completed [facility] of 00:00:00 [facility] TDAP 2021-12-17 Completed [facility] of 00:00:00 [facility] TDAP 2021-12-17 Completed [facility] of 00:00:00 [facility] TDAP 2021-12-17 Completed [facility] of 00:00:00 [facility] TDAP 2021-12-17 Completed [facility] of 00:00:00 [facility] TDAP 2021-12-17 Completed [facility] of 00:00:00 [facility] TDAP 2021-12-17 Completed [facility] of 00:00:00 [facility] TDAP 2021-12-17 Completed [facility] of 00:00:00 [facility] TDAP 2021-12-17 Completed [facility] of 00:00:00 [facility] TDAP 2021-12-17 Completed [facility] of 00:00:00 [facility] TDAP 2021-12-17 Completed [facility] of 00:00:00 [facility] TDAP 2021-12-17 Completed [facility] of 00:00:00 [facility] TDAP 2021-12-17 Completed [facility] of 00:00:00 [facility] TDAP 2021-12-17 Completed [facility] of 00:00:00 [facility] TDAP 2021-12-17 Completed [facility] of 00:00:00 [facility] TDAP 2021-12-17 Completed [facility] of 00:00:00 [facility] TDAP 2021-12-17 Completed [facility] of 00:00:00 [facility] TDAP 2021-12-17 Completed [facility] of 00:00:00 [facility] TDAP 2021-12-17 Completed [facility] of 00:00:00 [facility] TDAP 2021-12-17 Completed [facility] of 00:00:00 [facility] TDAP 2021-12-17 Completed [facility] of 00:00:00 [facility] TDAP 2021-12-17 Completed [facility] of 00:00:00 [facility] TDAP 2021-12-17 Completed [facility] of 00:00:00 [facility] TDAP 2021-12-17 Completed [facility] of 00:00:00 [facility] TDAP 2021-12-17 Completed [facility] 00:00:00 [facility] TDAP 2021-12-17 Completed [facility] 00:00:00 [facility] TDAP 2021-12-17 Completed [facility] of 00:00:00 [facility] TDAP 2021-12-17 Completed [facility] 00:00:00 [facility] TDAP 2021-12-17 Completed [facility] 00:00:00 [facility] TDAP 2021-12-17 Completed [facility] 00:00:00 [facility] TDAP 2021-12-17 Completed [facility] of 00:00:00 [facility] TDAP 2021-12-17 Completed [facility] of 00:00:00 [facility] TDAP 2021-12-17 Completed [facility] of 00:00:00 [facility] TDAP 2021-12-17 Completed [facility] of 00:00:00 [facility] TDAP 2021-12-17 Completed [facility] 00:00:00 [facility] HPV9 2019-12-30 Completed [facility] 00:00:00 [facility] HPV9 2019-12-30 Completed [facility] 00:00:00 [facility] HPV9 2019-12-30 Completed [facility] 00:00:00 [facility] HPV9 2019-12-30 Completed [facility] 00:00:00 [facility] HPV9 2019-12-30 Completed [facility] 00:00:00 [facility] HPV9 2019-12-30 Completed [facility] 00:00:00 [facility] HPV9 2019-12-30 Completed [facility] 00:00:00 [facility] HPV9 2019-12-30 Completed [facility] 00:00:00 [facility] HPV9 2019-12-30 Completed [facility] 00:00:00 [facility] HPV9 2019-12-30 Completed University of [...] Branch HPV9 2019-12-30 Completed [facility] of 00:00:00 [facility] HPV9 2019-09-27 Completed [facility] 00:00:00 [facility] HPV9 2019-09-27 Completed [facility] of 00:00:00 [facility] HPV9 2019-09-27 Completed [facility] of 00:00:00 [facility] HPV9 2019-09-27 Completed [facility] of 00:00:00 [facility] HPV9 2019-09-27 Completed [facility] of 00:00:00 [facility] HPV9 2019-09-27 Completed [facility] of 00:00:00 [facility] HPV9 2019-09-27 Completed [facility] of 00:00:00 [facility] HPV9 2019-09-27 Completed [facility] of 00:00:00 [facility] HPV9 2019-09-27 Completed [facility] of 00:00:00 [facility] HPV9 2019-09-27 Completed [facility] of 00:00:00 [facility] HPV9 2019-09-27 Completed [facility] of 00:00:00 [facility] HPV9 2019-09-27 Completed [facility] of 00:00:00 [facility] HPV9 2019-09-27 Completed [facility] of 00:00:00 [facility] HPV9 2019-09-27 Completed [facility] of 00:00:00 [facility] HPV9 2019-09-27 Completed [facility] of 00:00:00 [facility] HPV9 2019-09-27 Completed [facility] of 00:00:00 [facility] HPV9 2019-09-27 Completed [facility] of 00:00:00 [facility] HPV9 2019-09-27 Completed [facility] of 00:00:00 [facility] HPV9 2019-09-27 Completed [facility] of 00:00:00 [facility] HPV9 2019-09-27 Completed [facility] of 00:00:00 [facility] HPV9 2019-09-27 Completed [facility] of 00:00:00 [facility] HPV9 2019-09-27 Completed [facility] of 00:00:00 [facility] HPV9 2019-09-27 Completed [facility] of 00:00:00 [facility] HPV9 2019-09-27 Completed [facility] of 00:00:00 [facility] HPV9 2019-09-27 Completed [facility] of 00:00:00 [facility] HPV9 2019-09-27 Completed [facility] of 00:00:00 [facility] HPV9 2019-09-27 Completed [facility] of 00:00:00 [facility] HPV9 2019-09-27 Completed [facility] of 00:00:00 [facility] HPV9 2019-09-27 Completed [facility] of 00:00:00 [facility] HPV9 2019-09-27 Completed [facility] of 00:00:00 [facility] HPV9 2019-09-27 Completed [facility] of 00:00:00 [facility] HPV9 2019-09-27 Completed [facility] of 00:00:00 [facility] HPV9 2019-09-27 Completed [facility] of 00:00:00 [facility] HPV9 2019-09-27 Completed [facility] of 00:00:00 [facility] HPV9 2019-09-27 Completed [facility] of 00:00:00 [facility] HPV9 2019-09-27 Completed [facility] of 00:00:00 [facility] HPV9 2019-09-27 Completed [facility] of 00:00:00 [facility] HPV9 2019-09-27 Completed [facility] of 00:00:00 [facility] HPV9 2019-09-27 Completed [facility] of 00:00:00 [facility] HPV9 2019-09-27 Completed [facility] of 00:00:00 [facility] HPV9 2019-09-27 Completed [facility] of 00:00:00 [facility] HPV9 2019-09-27 Completed [facility] of 00:00:00 [facility] HPV9 2019-09-27 Completed [facility] of 00:00:00 [facility] HPV9 2019-09-27 Completed [facility] of 00:00:00 [facility] HPV9 2019-09-27 Completed [facility] of 00:00:00 [facility] HPV9 2019-09-27 Completed [facility] of 00:00:00 [facility] HPV9 2019-09-27 Completed [facility] of 00:00:00 [facility] HPV9 2019-09-27 Completed [facility] of 00:00:00 [facility] HPV9 2019-09-27 Completed [facility] of 00:00:00 [facility] HPV9 2019-09-27 Completed [facility] of 00:00:00 [facility] HPV9 2019-09-27 Completed [facility] of 00:00:00 [facility] HPV9 2019-09-27 Completed [facility] of 00:00:00 [facility] HPV9 2019-09-27 Completed [facility] of 00:00:00 [facility] HPV9 2019-09-27 Completed [facility] of 00:00:00 [facility] HPV9 2019-09-27 Completed [facility] of 00:00:00 [facility] HPV9 2019-09-27 Completed [facility] of 00:00:00 [facility] HPV9 2019-09-27 Completed [facility] of 00:00:00 [facility] HPV9 2019-09-27 Completed [facility] of 00:00:00 [facility] HPV9 2019-09-27 Completed [facility] of 00:00:00 [facility] HPV9 2019-09-27 Completed [facility] of 00:00:00 [facility] HPV9 2019-09-27 Completed [facility] of 00:00:00 [facility] HPV9 2019-09-27 Completed [facility] of 00:00:00 [facility] HPV9 2019-09-27 Completed [facility] of 00:00:00 [facility] HPV9 2019-09-27 Completed [facility] of 00:00:00 [facility] HPV9 2019-09-27 Completed [facility] of 00:00:00 [facility] HPV9 2019-09-27 Completed [facility] of 00:00:00 [facility] HPV9 2019-05-17 Completed [facility] of 00:00:00 [facility] HPV9 2019-05-17 Completed University of [...] Branch HPV9 2019-05-17 Completed [facility] of 00:00:00 [facility] HPV9 2019-05-17 Completed [facility] 00:00:00 [facility] HPV9 2019-05-17 Completed University of [...] Branch HPV9 2019-05-17 Completed [facility] of 00:00:00 [facility] HPV9 2019-05-17 Completed [facility] of 00:00:00 [facility] HPV9 2019-05-17 Completed [facility] of 00:00:00 [facility] HPV9 2019-05-17 Completed [facility] of 00:00:00 [facility] HPV9 2019-05-17 Completed [facility] of 00:00:00 [facility] HPV9 2019-05-17 Completed [facility] 00:00:00 [facility] HPV9 2019-05-17 Completed [facility] 00:00:00 [facility] HPV9 2019-05-17 Completed [facility] 00:00:00 [facility] HPV9 2019-05-17 Completed [facility] 00:00:00 [facility] HPV9 2019-05-17 Completed [facility] of 00:00:00 [facility] HPV9 2019-05-17 Completed [facility] of 00:00:00 [facility] HPV9 2019-05-17 Completed [facility] of 00:00:00 [facility] HPV9 2019-05-17 Completed [facility] of 00:00:00 [facility] HPV9 2019-05-17 Completed [facility] of 00:00:00 [facility] HPV9 2019-05-17 Completed [facility] of 00:00:00 [facility] HPV9 2019-05-17 Completed [facility] of 00:00:00 [facility] HPV9 2019-05-17 Completed [facility] of 00:00:00 [facility] HPV9 2019-05-17 Completed [facility] of 00:00:00 [facility] HPV9 2019-05-17 Completed [facility] of 00:00:00 [facility] HPV9 2019-05-17 Completed [facility] of 00:00:00 [facility] HPV9 2019-05-17 Completed [facility] 00:00:00 [facility] HPV9 2019-05-17 Completed [facility] of 00:00:00 [facility] TDAP (ADACEL) 2018-02-15 Completed University of VACCINE 00:00:00 [facility] TDAP (ADACEL) 2018-02-15 Completed University of VACCINE 00:00:00 [facility] TDAP (ADACEL) 2018-02-15 Completed [facility] VACCINE 00:00:00 [facility] TDAP (ADACEL) 2018-02-15 Completed [facility] VACCINE 00:00:00 [facility] TDAP (ADACEL) 2018-02-15 Completed [facility] VACCINE 00:00:00 [facility] TDAP (ADACEL) 2018-02-15 Completed [facility] VACCINE 00:00:00 [facility] TDAP (ADACEL) 2018-02-15 Completed [facility] VACCINE 00:00:00 [facility] TDAP (ADACEL) 2018-02-15 Completed [facility] VACCINE 00:00:00 [facility] TDAP (ADACEL) 2018-02-15 Completed [facility] VACCINE 00:00:00 [facility] TDAP (ADACEL) 2018-02-15 Completed [facility] VACCINE 00:00:00 [facility] TDAP (ADACEL) 2018-02-15 Completed [facility] VACCINE 00:00:00 [facility] TDAP (ADACEL) 2018-02-15 Completed [facility] VACCINE 00:00:00 [facility] TDAP (ADACEL) 2018-02-15 Completed [facility] VACCINE 00:00:00 [facility] TDAP (ADACEL) 2018-02-15 Completed [facility] VACCINE 00:00:00 [facility] TDAP (ADACEL) 2018-02-15 Completed [facility] VACCINE 00:00:00 [facility] TDAP (ADACEL) 2018-02-15 Completed [facility] VACCINE 00:00:00 [facility] TDAP (ADACEL) 2018-02-15 Completed [facility] VACCINE 00:00:00 [facility] TDAP (ADACEL) 2018-02-15 Completed [facility] VACCINE 00:00:00 [facility] TDAP (ADACEL) 2018-02-15 Completed [facility] VACCINE 00:00:00 [facility] TDAP (ADACEL) 2018-02-15 Completed [facility] VACCINE 00:00:00 [facility] TDAP (ADACEL) 2018-02-15 Completed [facility] VACCINE 00:00:00 [facility] TDAP (ADACEL) 2018-02-15 Completed [facility] VACCINE 00:00:00 [facility] TDAP (ADACEL) 2018-02-15 Completed [facility] VACCINE 00:00:00 [facility] TDAP (ADACEL) 2018-02-15 Completed [facility] VACCINE 00:00:00 [facility] TDAP (ADACEL) 2018-02-15 Completed [facility] VACCINE 00:00:00 [facility] TDAP (ADACEL) 2018-02-15 Completed [facility] VACCINE 00:00:00 [facility] TDAP (ADACEL) 2018-02-15 Completed [facility] [...] (ADACEL) 2018-02-15 Completed [facility] VACCINE 00:00:00 [facility] TDAP (ADACEL) 2018-02-15 Completed [facility] VACCINE 00:00:00 [facility] TDAP (ADACEL) 2018-02-15 Completed [facility] VACCINE 00:00:00 [facility] TDAP (ADACEL) 2018-02-15 Completed [facility] VACCINE 00:00:00 [facility] TDAP (ADACEL) 2018-02-15 Completed [facility] VACCINE 00:00:00 [facility] TDAP (ADACEL) 2018-02-15 Completed [facility] VACCINE 00:00:00 [facility] TDAP (ADACEL) 2018-02-15 Completed [facility] VACCINE 00:00:00 [facility] TDAP (ADACEL) 2018-02-15 Completed [facility] VACCINE 00:00:00 [facility] TDAP (ADACEL) 2018-02-15 Completed [facility] [...] (ADACEL) 2018-02-15 Completed [facility] VACCINE 00:00:00 [facility] TDAP (ADACEL) 2018-02-15 Completed [facility] VACCINE 00:00:00 [facility] TDAP (ADACEL) 2018-02-15 Completed [facility] VACCINE 00:00:00 [facility] TDAP (ADACEL) 2018-02-15 Completed [facility] VACCINE 00:00:00 [facility] TDAP (ADACEL) 2018-02-15 Completed [facility] VACCINE 00:00:00 [facility] TDAP (ADACEL) 2018-02-15 Completed [facility] VACCINE 00:00:00 [facility] TDAP (ADACEL) 2018-02-15 Completed [facility] VACCINE 00:00:00 [facility] TDAP (ADACEL) 2018-02-15 Completed [facility] VACCINE 00:00:00 [facility] TDAP (ADACEL) 2018-02-15 Completed [facility] VACCINE 00:00:00 [facility] TDAP (ADACEL) 2018-02-15 Completed [facility] VACCINE 00:00:00 [facility] TDAP (ADACEL) 2018-02-15 Completed [facility] VACCINE 00:00:00 [facility] TDAP (ADACEL) 2018-02-15 Completed [facility] VACCINE 00:00:00 [facility] TDAP (ADACEL) 2018-02-15 Completed [facility] VACCINE 00:00:00 [facility] TDAP (ADACEL) 2018-02-15 Completed [facility] VACCINE 00:00:00 [facility] TDAP (ADACEL) 2018-02-15 Completed [facility] VACCINE 00:00:00 [facility] TDAP (ADACEL) 2018-02-15 Completed [facility] VACCINE 00:00:00 [facility] TDAP (ADACEL) 2018-02-15 Completed [facility] VACCINE 00:00:00 [facility] TDAP (ADACEL) 2018-02-15 Completed [facility] VACCINE 00:00:00 [facility] Influenza Virus 2017-12-14 Completed [facility] y [facility] Vaccine Quad IM 3+ 00:00:00 [facility] Influenza Virus 2017-12-14 Completed [facility] y of Vaccine Quad IM 3+ 00:00:00 [facility] Influenza Virus 2017-12-14 Completed [facility] of Vaccine Quad IM 3+ 00:00:00 [facility] Influenza Virus 2017-12-14 Completed [facility] y of Vaccine Quad IM 3+ 00:00:00 [facility] Influenza Virus 2017-12-14 Completed [facility] y of Vaccine Quad IM 3+ 00:00:00 [facility] Influenza Virus 2017-12-14 Completed [facility] y of Vaccine Quad IM 3+ 00:00:00 [facility] Influenza Virus 2017-12-14 Completed [facility] y of Vaccine [facility] IM 3+ 00:00:00 [facility] Influenza Virus 2017-12-14 Completed [facility] y of Vaccine Quad IM 3+ 00:00:00 [facility] Influenza Virus 2017-12-14 Completed [facility] of Vaccine [facility] IM 3+ 00:00:00 [facility] Influenza Virus 2017-12-14 Completed [facility] y of Vaccine Quad IM 3+ 00:00:00 [facility] Influenza Virus 2017-12-14 Completed [facility] y of Vaccine Quad IM 3+ 00:00:00 [facility] Influenza Virus 2017-12-14 Completed [facility] of Vaccine Quad IM 3+ 00:00:00 [facility] Influenza Virus 2017-12-14 Completed [facility] of Vaccine Quad IM 3+ 00:00:00 [facility] Influenza Virus 2017-12-14 Completed [facility] of Vaccine Quad IM 3+ 00:00:00 [facility] Influenza Virus 2017-12-14 Completed [facility] y of Vaccine Quad IM 3+ 00:00:00 [facility] Influenza Virus 2017-12-14 Completed [facility] y of Vaccine [facility] IM 3+ 00:00:00 [facility] Influenza Virus 2017-12-14 Completed [facility] y of Vaccine Quad IM 3+ 00:00:00 [facility] Influenza Virus 2017-12-14 Completed [facility] of Vaccine Quad IM 3+ 00:00:00 [facility] Influenza Virus 2017-12-14 Completed [facility] y of Vaccine Quad IM 3+ 00:00:00 [facility] Influenza Virus 2017-12-14 Completed [facility] of Vaccine Quad IM 3+ 00:00:00 [facility] Influenza Virus 2017-12-14 Completed [facility] of Vaccine Quad IM 3+ 00:00:00 [facility] Influenza Virus 2017-12-14 Completed [facility] y of Vaccine Quad IM 3+ 00:00:00 [facility] Influenza Virus 2017-12-14 Completed [facility] y of Vaccine Quad IM 3+ 00:00:00 [facility] Influenza Virus 2017-12-14 Completed [facility] y of Vaccine Quad IM 3+ 00:00:00 [facility] Influenza Virus 2017-12-14 Completed [facility] of Vaccine Quad IM 3+ 00:00:00 [facility] Influenza Virus 2017-12-14 Completed [facility] of Vaccine Quad IM 3+ 00:00:00 [facility] Influenza Virus 2017-12-14 Completed [facility] of Vaccine Quad IM 3+ 00:00:00 [facility] Influenza Virus 2017-12-14 Completed [facility] of Vaccine Quad IM 3+ 00:00:00 [facility] Influenza Virus 2017-12-14 Completed [facility] of Vaccine [facility] IM 3+ 00:00:00 [facility] Influenza Virus 2017-12-14 Completed [facility] of Vaccine [facility] IM 3+ 00:00:00 [facility] Influenza Virus 2017-12-14 Completed [facility] of Vaccine [facility] IM 3+ 00:00:00 [facility] Influenza Virus 2017-12-14 Completed [facility] of Vaccine [facility] IM 3+ 00:00:00 [facility] Influenza Virus 2017-12-14 Completed [facility] of Vaccine [facility] IM 3+ 00:00:00 [facility] Influenza Virus 2017-12-14 Completed [facility] of Vaccine [facility] IM 3+ 00:00:00 [facility] Influenza Virus 2017-12-14 Completed [facility] y of Vaccine Quad IM 3+ 00:00:00 [facility] Influenza Virus 2017-12-14 Completed [facility] y of Vaccine Quad IM 3+ 00:00:00 [facility] Influenza Virus 2017-12-14 Completed [facility] y of Vaccine Quad IM 3+ 00:00:00 [facility] Influenza Virus 2017-12-14 Completed [facility] of Vaccine [facility] IM 3+ 00:00:00 [facility] Influenza Virus 2017-12-14 Completed [facility] y of Vaccine Quad IM 3+ 00:00:00 [facility] Influenza Virus 2017-12-14 Completed [facility] y of Vaccine Quad IM 3+ 00:00:00 [facility] Influenza Virus 2017-12-14 Completed [facility] y of Vaccine Quad IM 3+ 00:00:00 [facility] Influenza Virus 2017-12-14 Completed [facility] y of Vaccine [facility] IM 3+ 00:00:00 [facility] Influenza Virus 2017-12-14 Completed [facility] y of Vaccine Quad IM 3+ 00:00:00 [facility] Influenza Virus 2017-12-14 Completed [facility] y of Vaccine Quad IM 3+ 00:00:00 [facility] Influenza Virus 2017-12-14 Completed [facility] y of Vaccine Quad IM 3+ 00:00:00 [facility] Influenza Virus 2017-12-14 Completed [facility] y of Vaccine Quad IM 3+ 00:00:00 [facility] Influenza Virus 2017-12-14 Completed [facility] y of Vaccine Quad IM 3+ 00:00:00 [facility] Influenza Virus 2017-12-14 Completed [facility] y of Vaccine Quad IM 3+ 00:00:00 [facility] Influenza Virus 2017-12-14 Completed [facility] y of Vaccine Quad IM 3+ 00:00:00 [facility] Influenza Virus 2017-12-14 Completed [facility] y of Vaccine Quad IM 3+ 00:00:00 [facility] Influenza Virus 2017-12-14 Completed [facility] y of Vaccine Quad IM 3+ 00:00:00 [facility] Influenza Virus 2017-12-14 Completed [facility] y of Vaccine Quad IM 3+ 00:00:00 [facility] Influenza Virus 2017-12-14 Completed [facility] y of Vaccine Quad IM 3+ 00:00:00 [facility] Influenza Virus 2017-12-14 Completed [facility] y of Vaccine Quad IM 3+ 00:00:00 [facility] Influenza Virus 2017-12-14 Completed [facility] y of Vaccine Quad IM 3+ 00:00:00 [facility] Influenza Virus 2017-12-14 Completed [facility] y of Vaccine Quad IM 3+ 00:00:00 [facility] Influenza Virus 2017-12-14 Completed [facility] y of Vaccine Quad IM 3+ 00:00:00 [facility] Influenza Virus 2017-12-14 Completed [facility] y of Vaccine Quad IM 3+ 00:00:00 [facility] Influenza Virus 2017-12-14 Completed [facility] y of Vaccine Quad IM 3+ 00:00:00 [facility] Influenza Virus 2017-12-14 Completed [facility] y of Vaccine Quad IM 3+ 00:00:00 [facility] Influenza Virus 2017-12-14 Completed [facility] y of Vaccine Quad IM 3+ 00:00:00 [facility] Influenza Virus 2017-12-14 Completed [facility] y of Vaccine Quad IM 3+ 00:00:00 [facility] Influenza Virus 2017-12-14 Completed [facility] y of Vaccine Quad IM 3+ 00:00:00 [facility] Influenza Virus 2017-12-14 Completed [facility] y of Vaccine Quad IM 3+ 00:00:00 [facility] Influenza Virus 2017-12-14 Completed [facility] y of Vaccine Quad IM 3+ 00:00:00 [facility] Influenza Virus 2017-12-14 Completed [facility] y of Vaccine [facility] IM 3+ 00:00:00 [facility] Varicella 2016-05-24 Completed [facility] [...] Branch TDAP 2016-04-03 Completed [facility] of 00:00:00 [facility] TDAP 2016-04-03 Completed [facility] of 00:00:00 [facility] TDAP 2016-04-03 Completed [facility] of 00:00:00 [facility] TDAP 2016-04-03 Completed [facility] 00:00:00 [facility] TDAP 2016-04-03 Completed [facility] of 00:00:00 [facility] TDAP 2016-04-03 Completed [facility] of 00:00:00 [facility] TDAP 2016-04-03 Completed [facility] of 00:00:00 [facility] TDAP 2016-04-03 Completed [facility] of 00:00:00 [facility] TDAP 2016-04-03 Completed [facility] of 00:00:00 [facility] TDAP 2016-04-03 Completed [facility] of 00:00:00 [facility] TDAP 2016-04-03 Completed [facility] of 00:00:00 [facility] TDAP 2016-04-03 Completed [facility] of 00:00:00 [facility] TDAP 2016-04-03 Completed [facility] of 00:00:00 [facility] TDAP 2016-04-03 Completed [facility] 00:00:00 [facility] TDAP 2016-04-03 Completed [facility] of 00:00:00 [facility] TDAP 2016-04-03 Completed [facility] of 00:00:00 [facility] TDAP 2016-04-03 Completed [facility] of 00:00:00 [facility] TDAP 2016-04-03 Completed [facility] of 00:00:00 [facility] TDAP 2016-04-03 Completed [facility] of 00:00:00 [facility] TDAP 2016-04-03 Completed [facility] of 00:00:00 [facility] TDAP 2016-04-03 Completed [facility] 00:00:00 [facility] TDAP 2016-04-03 Completed [facility] of 00:00:00 [facility] TDAP 2016-04-03 Completed [facility] 00:00:00 [facility] TDAP 2016-04-03 Completed [facility] of 00:00:00 [facility] TDAP 2016-04-03 Completed [facility] 00:00:00 [facility] TDAP 2016-04-03 Completed [facility] 00:00:00 [facility] TDAP 2016-04-03 Completed [facility] 00:00:00 [facility] TDAP 2016-04-03 Completed [facility] of 00:00:00 [facility] TDAP 2016-04-03 Completed [facility] 00:00:00 [facility] TDAP 2016-04-03 Completed [facility] 00:00:00 [facility] TDAP 2016-04-03 Completed [facility] of 00:00:00 [facility] TDAP 2016-04-03 Completed [facility] 00:00:00 [facility] TDAP 2016-04-03 Completed [facility] 00:00:00 [facility] TDAP 2016-04-03 Completed [facility] of 00:00:00 [facility] TDAP 2016-04-03 Completed [facility] 00:00:00 [facility] TDAP 2016-04-03 Completed [facility] 00:00:00 [facility] TDAP 2016-04-03 Completed [facility] 00:00:00 [facility] TDAP 2016-04-03 Completed [facility] 00:00:00 [facility] TDAP 2016-04-03 Completed [facility] 00:00:00 [facility] TDAP 2016-04-03 Completed [facility] 00:00:00 [facility] TDAP 2016-04-03 Completed [facility] of 00:00:00 [facility] TDAP 2016-04-03 Completed [facility] of 00:00:00 [facility] TDAP 2016-04-03 Completed [facility] 00:00:00 [facility] TDAP 2016-04-03 Completed [facility] of 00:00:00 [facility] TDAP 2016-04-03 Completed [facility] 00:00:00 [facility] TDAP 2016-04-03 Completed [facility] 00:00:00 [facility] TDAP 2016-04-03 Completed [facility] 00:00:00 [facility] TDAP 2016-04-03 Completed [facility] of 00:00:00 [facility] TDAP 2016-04-03 Completed [facility] 00:00:00 [facility] TDAP 2016-04-03 Completed [facility] 00:00:00 [facility] TDAP 2016-04-03 Completed [facility] 00:00:00 [facility] TDAP 2016-04-03 Completed [facility] 00:00:00 [facility] TDAP 2016-04-03 Completed [facility] 00:00:00 [facility] TDAP 2016-04-03 Completed [facility] 00:00:00 [facility] TDAP 2016-04-03 Completed [facility] 00:00:00 [facility] TDAP 2016-04-03 Completed [facility] 00:00:00 [facility] TDAP 2016-04-03 Completed [facility] 00:00:00 [facility] TDAP 2016-04-03 Completed [facility] 00:00:00 [facility] TDAP 2016-04-03 Completed [facility] 00:00:00 [facility] TDAP 2016-04-03 Completed [facility] 00:00:00 [facility] TDAP 2016-04-03 Completed [facility] 00:00:00 [facility] TDAP 2016-04-03 Completed [facility] 00:00:00 [facility] TDAP 2016-04-03 Completed [facility] of 00:00:00 [facility] TDAP 2016-04-03 Completed [facility] 00:00:00 [facility] TDAP 2016-04-03 Completed [facility] 00:00:00 [facility] TDAP 2016-04-03 Completed [facility] of 00:00:00 [facility] Rho (d) Immune 2016-03-27 Completed [facility] of Globulin 00:00:00 [facility] Rho (d) Immune 2016-03-27 Completed [facility] of Globulin 00:00:00 [facility] Rho (d) Immune 2016-03-27 Completed [facility] of Globulin 00:00:00 [facility] Rho (d) Immune 2016-03-27 Completed [facility] of Globulin 00:00:00 [facility] Rho (d) Immune 2016-03-27 Completed [facility] of Globulin 00:00:00 [facility] Rho (d) Immune 2016-03-27 Completed [facility] of Globulin 00:00:00 [facility] Rho (d) Immune 2016-03-27 Completed [facility] of Globulin 00:00:00 [facility] Rho (d) Immune 2016-03-27 Completed [facility] of Globulin 00:00:00 [facility] Rho (d) Immune 2016-03-27 Completed [facility] of Globulin 00:00:00 [facility] Rho (d) Immune 2016-03-27 Completed [facility] of Globulin 00:00:00 [facility] Rho (d) Immune 2016-03-27 Completed [facility] of Globulin 00:00:00 [facility] Rho (d) Immune 2016-03-27 Completed [facility] of Globulin 00:00:00 [facility] Rho (d) Immune 2016-03-27 Completed [facility] of Globulin 00:00:00 [facility] Rho (d) Immune 2016-03-27 Completed [facility] of Globulin 00:00:00 [facility] Rho (d) Immune 2016-03-27 Completed [facility] Globulin 00:00:00 [facility] Rho (d) Immune 2016-03-27 Completed [facility] Globulin 00:00:00 [facility] Rho (d) Immune 2016-03-27 Completed [facility] Globulin 00:00:00 [facility] Rho (d) Immune 2016-03-27 Completed [facility] Globulin 00:00:00 [facility] Rho (d) Immune 2016-03-27 Completed [facility] Globulin 00:00:00 [facility] Rho (d) Immune 2016-03-27 Completed [facility] Globulin 00:00:00 [facility] Rho (d) Immune 2016-03-27 Completed [facility] Globulin 00:00:00 [facility] Rho (d) Immune 2016-03-27 Completed [facility] of Globulin 00:00:00 [facility] Rho (d) Immune 2016-03-27 Completed [facility] of Globulin 00:00:00 [facility] Rho (d) Immune 2016-03-27 Completed [facility] of Globulin 00:00:00 [facility] Rho (d) Immune 2016-03-27 Completed [facility] Globulin 00:00:00 [facility] Rho (d) Immune 2016-03-27 Completed [facility] Globulin 00:00:00 [facility] Rho (d) Immune 2016-03-27 Completed [facility] of Globulin 00:00:00 [facility] Rho (d) Immune 2016-03-27 Completed [facility] of Globulin 00:00:00 [facility] Rho (d) Immune 2016-03-27 Completed [facility] Globulin 00:00:00 [facility] Rho (d) Immune 2016-03-27 Completed [facility] Globulin 00:00:00 [facility] Rho (d) Immune 2016-03-27 Completed [facility] Globulin 00:00:00 [facility] Rho (d) Immune 2016-03-27 Completed [facility] Globulin 00:00:00 [facility] Rho (d) Immune 2016-03-27 Completed [facility] Globulin 00:00:00 [facility] Rho (d) Immune 2016-03-27 Completed [facility] Globulin 00:00:00 [facility] Rho (d) Immune 2016-03-27 Completed [facility] Globulin 00:00:00 [facility] Rho (d) Immune 2016-03-27 Completed [facility] Globulin 00:00:00 [facility] Rho (d) Immune 2016-03-27 Completed [facility] Globulin 00:00:00 [facility] Rho (d) Immune 2016-03-27 Completed [facility] Globulin 00:00:00 [facility] Rho (d) Immune 2016-03-27 Completed [facility] Globulin 00:00:00 [facility] Rho (d) Immune 2016-03-27 Completed [facility] Globulin 00:00:00 [facility] Rho (d) Immune 2016-03-27 Completed [facility] Globulin 00:00:00 [facility] Rho (d) Immune 2016-03-27 Completed [facility] Globulin 00:00:00 [facility] Rho (d) Immune 2016-03-27 Completed [facility] Globulin 00:00:00 [facility] Rho (d) Immune 2016-03-27 Completed [facility] Globulin 00:00:00 [facility] Rho (d) Immune 2016-03-27 Completed [facility] Globulin 00:00:00 [facility] Rho (d) Immune 2016-03-27 Completed [facility] Globulin 00:00:00 [facility] Rho (d) Immune 2016-03-27 Completed [facility] Globulin 00:00:00 [facility] Rho (d) Immune 2016-03-27 Completed [facility] Globulin 00:00:00 [facility] Rho (d) Immune 2016-03-27 Completed [facility] Globulin 00:00:00 [facility] Rho (d) Immune 2016-03-27 Completed [facility] Globulin 00:00:00 [facility] Rho (d) Immune 2016-03-27 Completed [facility] Globulin 00:00:00 [facility] Rho (d) Immune 2016-03-27 Completed [facility] Globulin 00:00:00 [facility] Rho (d) Immune 2016-03-27 Completed [facility] Globulin 00:00:00 [facility] Rho (d) Immune 2016-03-27 Completed [facility] Globulin 00:00:00 [facility] Rho (d) Immune 2016-03-27 Completed [facility] Globulin 00:00:00 [facility] Rho (d) Immune 2016-03-27 Completed [facility] Globulin 00:00:00 [facility] Rho (d) Immune 2016-03-27 Completed [facility] Globulin 00:00:00 [facility] Rho (d) Immune 2016-03-27 Completed [facility] Globulin 00:00:00 [facility] Rho (d) Immune 2016-03-27 Completed [facility] Globulin 00:00:00 [facility] Rho (d) Immune 2016-03-27 Completed [facility] Globulin 00:00:00 [facility] Rho (d) Immune 2016-03-27 Completed [facility] Globulin 00:00:00 [facility] Rho (d) Immune 2016-03-27 Completed [facility] of Globulin 00:00:00 [facility] Rho (d) Immune 2016-03-27 Completed [facility] Globulin 00:00:00 [facility] Rho (d) Immune 2016-03-27 Completed [facility] Globulin 00:00:00 [facility] Rho (d) Immune 2016-03-27 Completed [facility] Gl[facility]ulin 00:00:00 [facility] Rho (d) Immune 2016-03-27 Completed [facility] Gl[facility]ulin 00:00:00 [facility] Vital Signs Vital Name Observation Time Observation Value Comments Source HEIGHT 2020-09-22 06:00:00 152.4 cm WEIGHT 2020-09-22 06:00:00 80.8 kg HEIGHT 2020-09-21 19:00:00 152.4 cm WEIGHT 2020-09-21 19:00:00 80.786 kg Systolic blood 2022-06-17 19:29:00 114 mm[Hg] Univer sity of pressure [facility] Diastolic blood 2022-06-17 19:29:00 83 mm[Hg] Unive rsity of pressure [facility] Heart rate 2022-06-17 19:29:00 88 /min Universi ty [facility] Body temperature 2022-06-17 19:29:00 36.11 Shira [facility] 2022-06-17 19:29:00 18 /min [facility] Body height 2022-06-17 19:29:00 160 cm [facility]i ty [facility] Body weight 2022-06-17 19:29:00 92.307 kg [facility] BMI 2022-06-17 19:29:00 36.05 kg/m2 [facility] Systolic blood 2022-04-22 02:32:00 129 mm[Hg] Univer sity of pressure [facility] Diastolic blood 2022-04-22 02:32:00 91 mm[Hg] Unive rsity of pressure [facility] Heart rate 2022-04-22 02:32:00 70 /min [facility] Body temperature 2022-04-22 02:32:00 37 Shira Univ ersity of [facility] Respiratory rate 2022-04-22 02:32:00 18 /min [facility] Body height 2022-04-22 02:32:00 162.6 cm [facility] Body weight 2022-04-22 02:32:00 86.183 kg [facility] BMI 2022-04-22 02:32:00 32.61 kg/m2 [facility] Oxygen saturation in 2022-04-22 02:32:00 99 /min University of Arterial blood by [facility] tressa Pulse oxim[facility] Branch Systolic blood 2022-03-18 20:14:00 145 mm[Hg] Univer sity of pressure [facility] Diastolic blood 2022-03-18 20:14:00 76 mm[Hg] Unive rsity of pressure [facility] Heart rate 2022-03-18 20:14:00 84 /min [facility] Respiratory rate 2022-03-18 20:14:00 18 /min Univ [facility] Oxygen saturation in 2022-03-18 20:14:00 99 /min University of Arterial blood by [facility] Pulse oximetry Branch Systolic blood 2022-03-04 17:21:00 115 mm[Hg] Univer sity of pressure [facility] Diastolic blood 2022-03-04 17:21:00 79 mm[Hg] Unive rsity of pressure [facility] Heart rate 2022-03-04 17:21:00 82 /min [facility] Respiratory rate 2022-03-04 17:21:00 17 /min Univ [facility] Body weight 2022-03-04 17:21:00 91.128 kg [facility] BMI 2022-03-04 17:21:00 34.48 kg/m2 [facility] Systolic blood 2022-02-16 23:00:00 130 mm[Hg] Univer sity of [facility] Diastolic blood 2022-02-16 23:00:00 80 mm[Hg] Unive rsity of pressure [facility] Respiratory rate 2022-02-16 23:00:00 16 /min Univ [facility] Heart rate 2022-02-16 21:45:00 71 /min [facility] Oxygen saturation in 2022-02-16 21:45:00 98 /min University of Arterial blood by [place] [employer] tressa Pulse oxim[facility] Branch Body temperature 2022-02-16 18:25:13 37.22 Shira [facility] Body weight 2022-02-16 17:54:00 92.08 kg [facility] BMI 2022-02-16 17:54:00 34.84 kg/m2 [facility] Systolic blood 2022-02-12 14:54:00 120 mm[Hg] Univer sity of pressure [facility] Diastolic blood 2022-02-12 14:54:00 79 mm[Hg] Unive rsity of pressure [facility] Heart rate 2022-02-12 14:54:00 81 /min [facility] Body temperature 2022-02-12 14:54:00 36.67 Shira [facility] Respiratory rate 2022-02-12 14:54:00 18 /min [facility] Oxygen saturation in 2022-02-12 14:54:00 98 /min [facility] of Arterial blood by [facility] tressa [facility] Body height 2022-02-10 22:10:00 162.6 cm [facility] Body weight 2022-02-10 22:10:00 96.163 kg [facility] BMI 2022-02-10 22:10:00 36.39 kg/m2 [facility] Systolic blood 2022-02-06 20:04:00 120 mm[Hg] Univer [facility]ity of pressure [facility] Diastolic blood 2022-02-06 20:04:00 76 mm[Hg] Unive rsity of pressure [facility] Heart rate 2022-02-06 20:04:00 89 /min [facility] Body temperature 2022-02-06 20:04:00 36.44 Shira [facility] Respiratory rate 2022-02-06 20:04:00 18 /min Univ [facility] Body height 2022-02-06 20:04:00 162.6 cm [facility] Body weight 2022-02-06 20:04:00 96.344 kg [facility] BMI 2022-02-06 20:04:00 36.46 kg/m2 [facility] Systolic blood 2022-02-03 21:03:00 121 mm[Hg] Univer sity of pressure [facility] Diastolic blood 2022-02-03 21:03:00 73 mm[Hg] Unive rsity of pressure [facility] Heart rate 2022-02-03 21:03:00 85 /min [facility] ty [facility] Body temperature 2022-02-03 21:03:00 36.44 Shira [facility] Respiratory rate 2022-02-03 21:03:00 17 /min Univ [facility] Body height 2022-02-03 21:03:00 162.6 cm [facility] Body weight 2022-02-03 21:03:00 96.525 kg [facility] BMI 2022-02-03 21:03:00 36.53 kg/m2 Universi ty of [facility] Heart rate 2022-01-30 23:30:00 102 /min [facility] ty [facility] Oxygen saturation in 2022-01-30 23:30:00 99 /min University of Arterial blood by [facility] Pulse oximetry Branch Systolic blood 2022-01-30 22:45:00 118 mm[Hg] Univer sity of pressure [facility] Diastolic blood 2022-01-30 22:45:00 69 mm[Hg] Unive rsity of pressure [facility] Respiratory rate 2022-01-30 22:10:00 38 /min Univ ersity [facility] Body temperature 2022-01-30 21:43:00 37.06 Shira [facility] Body height 2022-01-30 21:43:00 162.6 cm [facility] Body weight 2022-01-30 21:43:00 95.709 kg [facility] BMI 2022-01-30 21:43:00 36.22 kg/m2 [facility] Systolic blood 2022-01-29 20:36:00 128 mm[Hg] Univer sity of pressure [facility] Diastolic blood 2022-01-29 20:36:00 76 mm[Hg] Unive rsity of pressure [facility] Heart rate 2022-01-29 20:36:00 78 /min [facility] Body temperature 2022-01-29 20:36:00 36.78 Shira [facility] Respiratory rate 2022-01-29 20:36:00 18 /min Univ [facility] Body height 2022-01-29 20:36:00 162.6 cm [facility] Body weight 2022-01-29 20:36:00 96.117 kg [facility] BMI 2022-01-29 20:36:00 36.37 kg/m2 [facility] Systolic blood 2022-01-27 18:57:00 118 mm[Hg] Univer sity of pressure [facility] Diastolic blood 2022-01-27 18:57:00 72 mm[Hg] Unive rsity of pressure [facility] Heart rate 2022-01-27 18:57:00 86 /min [facility] Body temperature 2022-01-27 18:57:00 36.61 Shira [facility] Respiratory rate 2022-01-27 18:57:00 20 /min [facility] Body height 2022-01-27 18:57:00 162.6 cm [facility] Body weight 2022-01-27 18:57:00 96.798 kg [facility] BMI 2022-01-27 18:57:00 36.63 kg/m2 [facility] Systolic blood 2022 21:02:00 126 mm[Hg] Univer sity of pressure [facility] Diastolic blood 2022 21:02:00 68 mm[Hg] Unive rsity of pressure [facility] Heart rate 2022 21:02:00 88 /min [facility] Body temperature 2022 21:02:00 36.39 Shira [facility] Respiratory rate 2022 21:02:00 17 /min [facility] Body height 2022 21:02:00 162.6 cm [facility] Body weight 2022 21:02:00 97.16 kg [facility] BMI 2022 21:02:00 36.77 kg/m2 [facility] Systolic blood 2022-01-21 16:22:00 132 mm[Hg] Univer sity of pressure [facility] Diastolic blood 2022-01-21 16:22:00 79 mm[Hg] Unive rsity of pressure [facility] Heart rate 2022-01-21 16:22:00 99 /min [facility] Body temperature 2022-01-21 16:22:00 36.11 Shira [facility] Respiratory rate 2022-01-21 16:22:00 17 /min [facility] Body height 2022-01-21 16:22:00 162.6 cm [facility] Body weight 2022-01-21 16:22:00 95.845 kg [facility] BMI 2022-01-21 16:22:00 36.27 kg/m2 [facility] Systolic blood 2022-01-16 19:35:00 121 mm[Hg] Univer sity of pressure [facility] Diastolic blood 2022-01-16 19:35:00 79 mm[Hg] Unive rsity of pressure [facility] Heart rate 2022-01-16 19:35:00 94 /min [facility] Body temperature 2022-01-16 19:35:00 36.83 Shira [facility] Respiratory rate 2022-01-16 19:35:00 20 /min Univ [facility] Body height 2022-01-16 19:35:00 162.6 cm [facility] Body weight 2022-01-16 19:35:00 95.936 kg [facility] BMI 2022-01-16 19:35:00 36.30 kg/m2 [facility] Systolic blood 2022-01-13 16:56:00 126 mm[Hg] Univer sity of pressure [facility] Diastolic blood 2022-01-13 16:56:00 68 mm[Hg] Unive rsity of pressure [facility] Heart rate 2022-01-13 16:56:00 77 /min [facility] Body temperature 2022-01-13 16:56:00 36.5 Shira [facility] Respiratory rate 2022-01-13 16:56:00 17 /min [facility] Body height 2022-01-13 16:56:00 162.6 cm [facility] Body weight 2022-01-13 16:56:00 96.163 kg [facility] BMI 2022-01-13 16:56:00 36.39 kg/m2 [facility] Systolic blood 2022-01-09 18:46:00 115 mm[Hg] Univer sity of pressure [facility] Diastolic blood 2022-01-09 18:46:00 79 mm[Hg] Unive rsity of pressure [facility] Heart rate 2022-01-09 18:46:00 79 /min [facility] Body temperature 2022-01-09 18:46:00 36.67 Shira [facility] Respiratory rate 2022-01-09 18:46:00 18 /min Univ [facility] Body height 2022-01-09 18:46:00 162.6 cm [facility] Body weight 2022-01-09 18:46:00 96.117 kg [facility] BMI 2022-01-09 18:46:00 36.37 kg/m2 [facility] Systolic blood 2022-01-06 19:15:00 132 mm[Hg] Univer sity of pressure [facility] Diastolic blood 2022-01-06 19:15:00 74 mm[Hg] Unive rsity of pressure [facility] Heart rate 2022-01-06 19:15:00 86 /min [facility] Body temperature 2022-01-06 19:15:00 36.78 Shira [facility] Respiratory rate 2022-01-06 19:15:00 18 /min [facility] Body height 2022-01-06 19:15:00 162.6 cm [facility] Body weight 2022-01-06 19:15:00 94.944 kg [facility] BMI 2022-01-06 19:15:00 35.93 kg/m2 [facility] Systolic blood 2022-01-02 18:24:00 111 mm[Hg] Univer sity of pressure [facility] Diastolic blood 2022-01-02 18:24:00 69 [...] 2022-01-02 18:24:00 35.79 kg/m2 [facility] Systolic blood 2021-12-30 20:46:00 137 mm[Hg] Univer sity of pressure [facility] Diastolic blood 2021-12-30 20:46:00 77 mm[Hg] Unive rsity of pressure [facility] Heart rate 2021-12-30 20:46:00 89 /min [facility] Body temperature 2021-12-30 20:46:00 36.22 Shira [facility] Respiratory rate 2021-12-30 20:46:00 18 /min [facility] Body height 2021-12-30 20:46:00 162.6 [...] 2021-12-17 19:45:00 35.94 Shira [facility] Respiratory rate 2021-12-17 19:45:00 18 /min [facility] Body height 2021-12-17 19:45:00 162.6 cm [facility] Body weight 2021-12-17 19:45:00 94.065 kg [facility] BMI 2021-12-17 19:45:00 35.60 kg/m2 [facility] Heart rate 2021-12-01 21:00:00 90 /min [facility] Oxygen saturation in 2021-12-01 21:00:00 99 /min [facility] Arterial blood by [facility] Pulse oximetry Branch Systolic blood 2021-12-01 20:45:00 136 mm[Hg] Univer sity of pressure [facility] Diastolic blood 2021-12-01 20:45:00 73 mm[Hg] Unive rsity of pressure [facility] Body temperature 2021-12-01 20:12:00 36.33 Shira [facility] Respiratory rate 2021-12-01 20:12:00 18 /min [facility] Body weight 2021-12-01 19:42:00 92.987 kg [facility] BMI 2021-12-01 19:42:00 35.19 kg/m2 [facility] Systolic blood 2021-11-30 16:47:00 133 mm[Hg] Univer sity of pressure [facility] Diastolic blood 2021-11-30 16:47:00 73 mm[Hg] Unive rsity of pressure [facility] Heart rate 2021-11-30 16:47:00 96 /min [facility] Body temperature 2021-11-30 16:47:00 36.17 Shira [facility] Respiratory rate 2021-11-30 16:47:00 18 /min [facility] Body weight 2021-11-30 16:47:00 94.031 kg [facility] BMI 2021-11-30 16:47:00 35.58 kg/m2 [facility] Oxygen saturation in 2021-11-30 16:47:00 97 /min University of Arterial blood by [facility] Pulse oximetry Branch Systolic blood 2021-11-29 13:03:00 113 mm[Hg] Univer sity of pressure [facility] Diastolic blood 2021-11-29 13:03:00 65 mm[Hg] Unive rsity of pressure [facility] Heart rate 2021-11-29 13:03:00 82 /min [facility] Body temperature 2021-11-29 13:03:00 36.89 Shira [facility] Res[facility] rate 2021-11-29 13:03:00 20 /min [facility] Body height 2021-11-29 13:03:[address] [facility] Body weight 2021-11-29 13:03:00 92.987 kg [facility] BMI 2021-11-29 13:03:00 35.19 kg/m2 [facility] Oxygen saturation in 2021-11-29 13:03:00 100 /min [facility] Arterial blood by [facility] Pulse oxim[facility] Branch HEIGHT 2020-09-22 06:00:00 152.4 cm WEIGHT 2020-09-22 06:00:00 80.8 kg HEIGHT 2020-09-21 19:00:00 152.4 cm WEIGHT 2020-09-21 19:00:00 80.786 kg Procedures Procedure Date / Time Performing Clinician Source Performed POCT TEST 2022-06-17 19:17:00 Alma Solis Uni [facility] POCT URINALYSIS W/O 2022-06-17 19:17:00 Alma Solis Uni [facility] SPECIFIC GRAVITY [facility] PATIENT FINANCIAL 2022-06-17 19:02:51 Doctor Unassigned, Un [facility] [place] POLICY [facility] POCT TEST 2022-04-22 05:04:00 Kiarra Arizmendi [facility] COMP. METABOLIC PANEL 2022-04-22 04:35:00 Kiarra Arizmendi [facility] ([id number]) [facility] CBC WITH DIFF 2022-04-22 04:35:00 Kiarra Arizmendi [facility] URINALYSIS 2022-04-22 04:35:00 Kiarra Arizmendi [facility] NOTICE OF PRIVACY 2022-04-22 02:08:27 Doctor Thien, [facility] PRACTICES [facility] CONSENT/REFUSAL FOR 2022-04-22 02:07:10 [facility] PREPARE PACKED RBC 2022-02-16 23:41:05 Raven Goldsmith [facility] CT CHEST PULMONARY 2022-02-16 21:13:19 Raven Goldsmith [facility] ANGIOGRAM [facility] CT HEAD WO CONTRAST 2022-02-16 21:12:52 Raven Goldsmith [facility] US PELVIS COMPLETE WITH 2022-02-16 19:47:38 [facility] TRANSVAGINAL [facility] HB ABO GROUPING 2022-02-16 18:30:00 Raven Goldsmith [facility] MAGNESIUM 2022-02-16 18:29:00 Raven Goldsmith [facility] TROPONIN I 2022-02-16 18:29:00 Raven Goldsmith [facility] COMP. METABOLIC PANEL 2022-02-16 18:29:00 Raven Goldsmith [facility] ([id number]) [facility] CBC WITH DIFF 2022-02-16 18:29:00 Raven Goldsmith [facility] PROTHROMBIN TIME / INR 2022-02-16 18:29:00 Raven Goldsmith [facility] ACTIVATED PARTIAL 2022-02-16 18:29:00 Raven Goldsmith [facility] THRMPLAS ISABELL [facility] N-TERMINAL PRO-BNP 2022-02-16 18:29:00 Raven Goldsmith [facility] URINALYSIS 2022-02-16 18:14:00 Raven Goldsmith [facility] URINE DRUG (IMMUNOASSAY) 2022-02-16 18:14:00 Raven Goldsmith [facility] DRUG Medical [facility] SCREEN W/O REFLEX CONSENT/REFUSAL FOR 2022-02-16 17:48:27 Doctor Thien [facility] DIAGNOSIS AND TREATMENT [facility] CBC WITH DIFF 2022-02-12 10:03:00 Hermila [facility] HB -MATERNAL 2022-02-12 10:00:00 Hermila [facility] HEMORRHAGE SCREEN [facility] VENOUS CORD GAS 2022-02-11 16:58:00 [facility] CENTRAL NEURAXIAL BLOCK 2022-02-11 06:58:26 Nory Jiménez [facility] CBC WITH DIFF 2022-02-10 23:27:00 [facility] HEPATITIS B SURFACE 2022-02-10 23:27:00 Raya Ramirez [facility] ANTIGEN [facility] HIV 1/2 AG-AB WITH REFLEX 2022-02-10 23:27:00 Raya [facility] GALV ONLY - SYPHILIS 2022-02-10 23:27:00 James [facility] IGG/IGM [facility] ANTI-D R/O PANEL 2022-02-10 23:25:00 James [facility] HB ABO GROUPING 2022-02-10 23:25:00 [facility] RHO (D) IMMUNE GLOBULIN 2022-02-10 23:25:00 [facility] 2022-02-07 06:01:00 Doctor Unassigned, [facility] NON-STRESS TEST 2022-02-06 21:51:27 Kevin Singh [facility] POCT URINALYSIS 2022-02-06 00:00:00 Alma Solis [facility] POCT URINALYSIS 2022-02-03 22:20:00 Alma Solis [facility] NON-STRESS TEST 2022-02-03 21:35:28 Alma Solis [facility] URINE DRUG (IMMUNOASSAY) 2022-01-30 22:11:00 Dennys Lara [facility] SCREEN URINALYSIS 2022-01-30 22:11:00 Areli Patel [facility] HB ABO GROUPING 2022-01-30 21:57:00 Areli Patel [facility] LIPASE 2022-01-30 21:52:00 Areli Patel [facility] MAGNESIUM 2022-01-30 21:52:00 Areli Patel [facility] COMP. METABOLIC PANEL 2022-01-30 21:52:00 Areli Patel [facility] ([id number]) [facility] CBC WITH DIFF 2022-01-30 21:52:00 Areli Patel [facility] PROTHROMBIN TIME / INR 2022-01-30 21:52:00 Areli Patel [facility] COVID-19 (ID NOW RAPID 2022-01-30 21:52:[address] [facility] TESTING) [facility] HOSPITAL ADMISSION 2022-01-30 06:01:00 Doctor Unassigned, [facility] NON-STRESS TEST 2022-01-30 02:30:41 Radha Nobles [facility] CBC WITH DIFF 2022-01-29 21:15:00 Radha Nobles [facility] GC & CHLAMYDIA AMPLIFIED 2022-01-29 21:15:00 Radha [facility] GROUP B STREPTOCOCCUS BY 2022-01-29 21:15:00 Radha Nobles [facility] POCT URINALYSIS 2022-01-29 00:00:00 Alma Solis [facility] NON-STRESS TEST 2022-01-28 20:12:49 Alma Solis U [facility] POCT URINALYSIS 2022-01-27 00:00:00 Alma Solis [facility] NON-STRESS TEST 2022 21:50:59 Alma Solis U [facility] POCT URINALYSIS 2022 00:00:00 Akinsipe Alma C [facility] NON-STRESS TEST 2022-01-21 18:09:21 Radha Nobles Un [facility] POCT URINALYSIS 2022-01-21 00:00:00 Akinsipe Alma C [facility] NON-STRESS TEST 2022-01-16 20:01:49 Amy Sharma [facility] NON-STRESS TEST 2022-01-13 17:45:33 Radha Nobles Un [facility] POCT URINALYSIS 2022-01-13 00:00:00 Akinsiuare Alma C [facility] POCT URINALYSIS 2022-01-09 18:51:00 Akinsipe Alma C [facility] NON-STRESS TEST 2022-01-07 14:56:27 Akinjoanie Alma C [facility] POCT URINALYSIS 2022-01-06 19:16:00 Akinsipe Alma C [facility] PATIENT CORRESPONDENCE 2022-01-03 05:01:00 Doctor Unassigned, Un [facility] (LETTERS, USPS [place] [facility] DOCUMENTATION) NON-STRESS TEST 2022-01-02 20:04:00 Kevin Singh [facility] POCT URINALYSIS 2022-01-02 00:00:00 Akinsipe Alma C [facility] POCT URINALYSIS 2021-12-30 20:47:00 Akinsiaure Alma C [facility] POCT URINALYSIS 2021-12-17 19:46:00 Irma Alma C [facility] TDAP VACCINE, >11 YRS, IM 2021-12-17 19:45:33 Alma Solis [facility] URINALYSIS 2021-12-01 21:41:00 Sheryl Arnold [facility] CONSENT/REFUSAL FOR 2021-12-01 19:40:14 Doctor Unassigned, [facility] DIAGNOSIS AND TREATMENT [facility] CONSENT/REFUSAL FOR 2021-11-30 16:38:10 Doctor Thien [facility] DIAGNOSIS AND TREATMENT [facility] POCT URINALYSIS 2021-11-29 00:00:00 Alma Solis [facility] AUTHORIZATION FOR RELEASE 2021-07-19 05:01:00 Doctor Neumann, [facility] Name [facility] [place] Plan of Care Planned Activity Planned Date [...] (3 - Td or Tdap)] Future Scheduled 2022-11-[address] [facility] Test 00:00:00 (Season Ended) [code Medical Center = INFLUENZA VACCINE (Season Ended)] Future Scheduled 2022-06-08 COVID-19 VACCINE (#1) [facility] Test 13:29:23 [code = COVID-19 VACCINE (#1)] Future Scheduled 2022-06-08 Screening for [facility] Test 13:29:23 malignant neoplasm of cervix (procedure) [code = [id number]] Future Scheduled 2022-06-08 [facility]ACCINE [facility] 13:29:23 [code = INFLUENZA VACCINE] Future Scheduled 2022-03-[address] [facility] Test 00:00:00 (12+) [code = Medical Center DEPRESSION SCREENING (12+)] Future Scheduled 2022-03-[address] [facility] Test 00:00:00 (12+) [code = Medical Center DEPRESSION SCREENING (12+)] Future Scheduled 2022-03-02 COVID-19 VACCINE (#1) [facility] Hospital Test 16:47:47 [code = COVID-19 VACCINE (#1)] Future Scheduled 2022-03-02 [facility] Test 16:47:47 malignant neoplasm of cervix (procedure) [code = 994026671] Future Scheduled 2022-03-02 [facility]ACCINE [facility] 16:47:47 [code = INFLUENZA VACCINE] Future Scheduled 2022-01-12 [facility] 19:54:31 [code = INFLUENZA VACCINE] Future Scheduled 2022-01-12 [facility]:54:31 (1 of 3 - 3-dose series) [code = HEPATITIS B VACCINES (1 of 3 - 3-dose series)] Future Scheduled 2022-01-12 COVID-19 VACCINE (#1) [facility] Hospital Test 19:54:31 [code = COVID-19 VACCINE (#1)] Future Scheduled 2022-01-12 [facility] 19:54:31 Chlamydia trachomatis (procedure) [code = 903545830] Future Scheduled 2022-01-12 Hepatitis C screening [facility] Hospital Test 19:54:31 (procedure) [code = 597956695] Future Scheduled 2022-01-12 [facility] Test 19:54:31 malignant neoplasm of cervix (procedure) [code = 368557222] Future Scheduled 2021-11-09 COVID-19 VACCINE (#1) [facility] Hospital Test 06:02:25 [code = COVID-19 VACCINE (#1)] Future Scheduled 2021-11-09 [facility] Test 06:02:25 Chlamydia trachomatis (procedure) [code = 307928186] Future Scheduled 2021-11-09 Hepatitis C screening [facility] Hospital Test 06:02:25 (procedure) [code = 213243825] Future Scheduled 2021-11-09 [facility] Test 06:02:25 malignant neoplasm of cervix (procedure) [code = 321151686] Future Scheduled 2021-11-09 INFLUENZA VACCINE Method [facility] Test 06:02:25 [code = INFLUENZA VACCINE] Future Scheduled 2021-11-09 HEPATITIS B VACCINES Met [facility] Test 06:02:25 (1 of 3 - 3-dose series) [code = HEPATITIS B VACCINES (1 of 3 - 3-dose series)] Future Scheduled 2021-11-09 COVID-19 VACCINE (#1) [facility] Hospital Test 06:02:25 [code = COVID-19 VACCINE (#1)] Future Scheduled 2021-11-09 [facility] Test 06:02:25 Chlamydia trachomatis (procedure) [code = 395013430] Future Scheduled 2021-11-09 Hepatitis C screening [facility] Test 06:02:25 (procedure) [code = 555585487] Future Scheduled 2021-11-09 [facility] Test 06:02:25 malignant neoplasm of cervix (procedure) [code = 111494748] Future Scheduled 2021-11-09 INFLUENZA VACCINE Method [facility] Test 06:02:25 [code = INFLUENZA VACCINE] Future Scheduled 2021-11-09 HEPATITIS B VACCINES Met [facility] Test 06:02:25 (1 of 3 - 3-dose series) [code = HEPATITIS B VACCINES (1 of 3 - 3-dose series)] Future Scheduled 2021-11-[address] [facility] INFLUENZA VACCINE (#1)] Future Scheduled 2021-09-[address] [facility] Test 00:00:00 [facility] r Screening (12+) [code = Tobacco Cessation Counseling and Screening (12+)] Future Scheduled 2021-09-[address] [facility] cervix (procedure) [code = 618696866] Future Scheduled [address] [facility]00 [facility] cervix (procedure) [code = 258768962] Future Scheduled [address] [facility] Test 00:00:00 [facility] cerv[facility] (procedure) [code = 741428315] Future Scheduled [address] [facility] Test 00:00:00 malignant [facility] cervix (procedure) [code = 775732534] Future Scheduled [address] [facility] Test 00:00:00 malignant ne[facility] of [facility] cervix (procedure) [code = 553033879] Future Scheduled [address] [facility] Test 00:00:00 (procedure) [code = [facility] 76029348] Future Scheduled [address] [facility] Test 00:00:00 (procedure) [code = [facility] 70000603] Future Scheduled [address] [facility] Test 00:00:00 (procedure) [code = [facility] 82287536] Future Scheduled [address] [facility] Test 00:00:00 (procedure) [code = [facility] 11118346] Future Scheduled [address] [facility] Test 00:00:00 (procedure) [code = [facility] 19439807] Future Scheduled 2015 HEPATITIS C SCREENING [facility] [...] [facility] (procedure) [code = 972098516] Future Scheduled [facility] Test malignant neoplasm of cervix (procedure) [code = 680224247] Future Scheduled [facility] [code = INFLUENZA VACCINE] Encounters Start End Encounter Admission Attending Care Care Encounter Source Date/Time Date/Time Type Type Clinicians Facility Department ID 2021-12-01 Outpatient P [facility] MARGOT [id number] Univers 18:22:19 ity of [facility] 2021-01-07 Emergency [facility] [id number] Univers 07:14:20 ity of [facility] 2021-01-07 Emergency [facility] [id number] Univers 06:42:50 ity of [facility] 2021-01-07 Emergency [facility] [id number] Univers 06:25:23 ity of [facility] 2021-01-07 Emergency [facility] [id number] Univers 03:52:48 ity of [facility] 2021-01-07 Emergency [facility] [id number] Univers 03:25:06 ity of [facility] 2021-01-06 Emergency [facility] [id number] Univers 03:53:51 ity of [facility] 2020-09-21 Inpatient ER TESHA, [facility] [id number] [facility] 19:23:00 JOANNE 2022-07-28 2022-07-28 Outpatient P [facility] [id number] Univers 11:15:00 11:15:00 ity of [facility] 2022-07-03 2022-07-03 Outpatient R FARHAN, [facility] [id number] Univers 11:00:00 11:00:00 RADHA ity of [facility] 2022-06-24 2022-06-24 Telephone [facility] 1.2.840.114 [id number] Univers 00:00:00 00:00:00 Alma Estevez CHECK GRADER 350.1.13.10 ity of [facility] 4.2.7.2.686 Dwayne as MATERNAL [phone] Med ical & CHILD [address] [place] [address] 2022-06-23 2022-06-23 Telemedici Faculty, Reddy [facility] 1.2.840.114 [id number] Univers 15:30:00 16:00:00 ne Visit Seth Kay CHECK GRADER 350.1.13. 10 ity of REGIONAL 4.2.7.2.686 Dwayne as MATERNAL [id number] [facility] & CHILD [address] [place] [address] 2022-06-23 2022-06-23 Outpatient R NIESHA [facility] [id number] Univers 15:30:00 15:30:00 SETH ity of [facility] 2022-06-19 2022-06-19 Telephone [facility] 1.2.894.657 [id number] Univers 00:00:00 00:00:00 Mallory CHECK GRADER 350.1.13.10 it y of REGIONAL 4.2.7.2.686 Dwayne as MATERNAL [id number] [facility] & CHILD [address] [place] [address] 2022-06-18 2022-06-18 Telephone [facility] 1.2.383.213 [id number] Univers 00:00:00 00:00:00 Mallory CHECK GRADER 350.1.13.10 it y of [facility] 4.2.7.2.686 Dwayne as MATERNAL [id number] [facility] & CHILD [address] [place] [address] 2022-06-17 2022-06-17 Outpatient R IRMA [facility] [id number] Univers 14:45:00 15:19:39 ALMA hammonds o f [facility] 2022-06-17 2022-06-17 [facility] 1.2.560.044 [id number] Univers 14:45:00 15:19:39 Alma Estevez CHECK GRADER 350.1.13.10 ity of Visit REGIONAL 4.2.7.2.686 Dwayne as MATERNAL [phone] [facility] ical & CHILD [address] [place] [address] 2022-06-17 2022-06-17 Orders Doctor COLT 1.2.840.114 [id number] Univers 00:00:00 00:00:00 Only Unassigned, STEPHANIA 350.1.13.10 ity of [place] [facility] 4.2.7.2.686 Dwayne as [phone] [address] 2022-04-21 2022-04-21 Emergency X BEBETO, [facility] ERT [id number] Univers 20:35:00 23:49:00 KIARRA hammonds [facility] 2022-04-21 2022-04-21 Emergency [facility] 1.2.840.114 [id number] Univers 20:35:00 23:49:00 Kiarra GUTIERREZ 350.1.13.10 i ty of [place] 4.2.7.2.686 [phone] [address] 2022-03-28 2022-03-28 Outpatient Bryn NOBLES [facility] [id number] Univers 13:00:00 13:00:00 RADHA [facility] 2022-03-18 2022-03-18 Outpatient [facility] [id number] Univers 14:15:00 15:00:29 [facility] 2022-03-18 2022-03-18 Nurse Nurse, Reddy [facility] 1.2.840.114 [id number] Univers 14:15:00 14:35:00 Visit Unknown, Attending HEALTH 350.1.13.10 ity [facility] 4.2.7.2.686 Dwayne as JORGE?BLEA [phone] [address] MEDICAL OFFICE BUILDING 2022-03-04 2022-03-04 Outpatient Bryn NOBLES [facility] [id number] Univers 11:00:00 11:52:45 RADHA [facility] 2022-03-04 2022-03-04 Routine Provider, Ember [facility] 1 .2.840.114 [id number] Univers 11:00:00 11:52:45 Radha Nobles CHECK GRADER 350.1.13. 10 ity of Visit [facility] 4.2.7.2.686 Dwayne as MATERNAL [phone] Med ical & CHILD [address] [place] [address] 2022-02-20 2022-02-20 Case Marco [facility] 1.2.840.114 [id number] Univers 00:00:00 00:00:00 Management Dennyspatrick GUTIERREZ 350.1.13.10 ity of [place] 4.2.7.2.686 [facility] [id number] [place] [address] [address] 2022-02-17 2022-02-17 Outpatient R [facility] [id number] Univers 15:00:00 15:00:00 ity of [facility] 2022-02-16 2022-02-16 Emergency [facility] ERT [id number] Univers 12:01:00 17:40:00 RAVEN ity [facility] 2022-02-16 2022-02-16 Emergency [facility] 1.2.094.866 [id number] Univers 12:01:00 17:40:00 Raven GUTIERREZ 350.1.13.10 i ty [facility] 4.2.7.2.686 [facility] [id number] [facility] [address] 2022-02-10 2022-02-12 Inpatient X CHIQUIS KATE [facility] MARGOT 1 [id number] Univers 15:37:00 16:21:00 CHIQUIS KATE [facility] 2022-02-10 2022-02-12 [facility] Eladia Conklin 1 .2.840.114 [id number] Univers 15:37:00 16:21:00 Encounter Chiquis Kate 350.1.13.10 ity [facility] 4.2.7.2.686 Dwayne as [phone] [facility] [address] 2022-02-11 2022-02-11 Anesthesia Nory Jiménez 1.2.840 .114 [id number] Univers 00:25:00 12:19:00 Event Martha Agarwal 350.1.13.10 ity of [facility] 4.2.7.2.686 Dwayne as [phone] [facility] [address] 2022-02-11 2022-02-11 Outpatient R FARHAN [facility] [id number] Univers 10:15:00 10:15:00 RADHA [facility] 2022-02-10 2022-02-10 Telephone [facility] 1.2.840.114 [id number] Univers 00:00:00 00:00:00 Alma Estevez CHECK GRADER 350.1.13.10 ity [facility] 4.2.7.2.686 Dwayne as MATERNAL [phone] [facility] ical & CHILD [address] [place] [address] 2022-02-07 2022-02-07 Orders Doctor COLT 1.2.840.114 [id number] Univers 00:00:00 00:00:00 Only Unassigned, STEPHANIA 350.1.13.10 ity of [place] [facility] 4.2.7.2.686 Dwayne as [phone] [address] 2022-02-06 2022-02-06 Outpatient R ALFREDO [facility] [id number] Univers 13:30:00 14:32:26 KEVIN [facility] 2022-02-06 2022-02-06 Routine Risk, Lho-Mvsjg-Fx/High [facility] 1. 2.840.114 [id number] Univers 13:30:00 14:32:26 Kevin Singh CHECK GRADER 350.1.13.10 ity of Visit [facility] 4.2.7.2.686 Dwayne as MATERNAL [phone] [facility] & CHILD [address] [place] [address] 2022-02-03 2022-02-03 Outpatient R IRMA [facility] [id number] Univers 15:15:00 15:34:29 ALMA hammonds o f [facility] 2022-02-03 2022-02-03 [facility] 1.2.948.375 [id number] Univers 15:15:00 15:34:29 Alma Estevez CHECK GRADER 350.1.13.10 ity of Visit [facility] 4.2.7.2.686 Dwayne as MATERNAL [phone] [facility] & CHILD [address] [place] [address] 2022-01-30 2022-01-30 Outpatient X MARCO [facility] MARGOT [id number] Univers 15:44:00 17:50:00 DENNYS hammonds [facility] 2022-01-30 2022-01-30 Emergency Areli Patel [facility] 1.2.8 40.114 [id number] Univers 15:44:00 17:50:00 Dennys Lara 350.1.13.10 ity of [place] 4.2.7.2.686 [facility] [phone] [address] 2022-01-29 2022-01-29 Outpatient R FARHAN [facility] [id number] Univers 14:45:00 15:15:50 RADHA ity [facility] 2022-01-29 2022-01-29 Routine Provider, Reddy-Otoniel Temp [facility] 1 .2.840.114 [id number] Univers 14:45:00 15:15:50 Radha Nobles CHECK GRADER 350.1.13. 10 ity of Visit REGIONAL 4.2.7.2.686 Dwayne as MATERNAL [phone] [facility] & [address] 2022-01-27 2022-01-27 Outpatient R IRMA, [facility] [id number] Univers 13:00:00 14:16:53 ALMA hammonds o [facility] 2022-01-27 2022-01-27 Routine Akinjoanie, [facility] 1.2.227.846 [id number] Univers 13:00:00 14:16:53 Alma C CHECK GRADER 350.1.13.10 ity of Visit REGIONAL 4.2.7.2.686 Dwayne as MATERNAL [phone] [address] 2022 2022 Outpatient R IRMA, [facility] [id number] Univers 15:00:00 15:51:27 ALMA hammonds o [facility] 2022 2022 Routine Akinsipe, [facility] 1.2.325.520 [id number] Univers 15:00:00 15:51:27 Alma C CHECK GRADER 350.1.13.10 ity of Visit REGIONAL 4.2.7.2.686 Dwayne as MATERNAL [id number] [facility] & [address] 2022-01-21 2022-01-21 Outpatient Bryn NOBLES [facility] [id number] Univers 10:30:00 10:50:45 RADHA ity [facility] 2022-01-21 2022-01-21 Routine Provider, Ang-Rmchp Temp [facility] 1 .2.840.114 [id number] Univers 10:30:00 10:50:45 Radha Nobles CHECK GRADER 350.1.13. 10 ity of Visit REGIONAL 4.2.7.2.686 Dwayne as MATERNAL [phone] Med ical & CHILD [address] [place] [address] 2022-01-16 2022-01-16 Outpatient Bryn SHARMA [facility] [id number] Univers 13:30:00 14:01:20 AMY ityolie [facility] 2022-01-16 2022-01-16 Routine Risk, Mpc-Vxaxl-Ca/High [facility] 1. 2.840.114 [id number] Univers 13:30:00 14:01:20 Amy Sharma CHECK GRADER 350.1.13.10 ity of Visit REGIONAL 4.2.7.2.686 Dwayne as MATERNAL [id number] Med ical & CHILD [address] [place] [address] 2022-01-15 2022-01-15 Telephone [facility] 1.2.840.114 [id number] Univers 00:00:00 00:00:00 Alma Estevez CHECK GRADER 350.1.13.10 ity of REGIONAL 4.2.7.2.686 Dwayne as MATERNAL [phone] Med ical & CHILD [address] [place] [address] 2022-01-13 2022-01-13 Outpatient R FARHAN [facility] [id number] Univers 11:00:00 15:39:45 RADHA ityolie [facility] 2022-01-13 2022-01-13 Routine Provider, Ang-Rmchp Temp [facility] 1 .2.840.114 [id number] Univers 11:00:00 11:15:00 Radha Nobles CHECK GRADER 350.1.13. 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 2.840.114 [id number] Univers 13:45:00 14:34:17 AkinsipeAlma CHECK GRADER 350.1.13 .10 ity of Visit Kevin Singh [facility] 4.2.7.2.686 [place] MATERNAL [phone] Med ical & CHILD [address] [place] [address] 2022-01-07 2022-01-07 Telephone Risk, [facility] 1.2.737.395 [id number] Univers 00:00:00 00:00:00 Ang-Rmchp-N CHECK GRADER 350.1.13.10 ity of p/High [facility]AL 4.2.7.2.686 Dwayne as MATERNAL [phone] Med ical & CHILD [address] [place] [address] 2022-01-06 2022-01-06 Outpatient R VIRA [facility] [id number] Univers 15:30:00 16:45:47 ROLY it y of NEAL Riddle [facility] 2022-01-06 2022-01-06 Telemedici Faculty, Ang Rmchp [facility] 1.2.840.114 [id number] Univers 15:30:00 16:45:47 ne Visit Vira CarlosgaviotaNeal joiner CHECK GRADER 350.1 .13.10 ity [facility] 4.2.7.2.686 Dwayne as MATERNAL [phone] Med ical & CHILD [address] [place] [address] 2022-01-06 2022-01-06 Routine AkinAlma nair [facility] 1.2.8 40.114 [id number] Univers 14:45:00 15:33:24 Trever Katz CHECK GRADER 350.1.13.1 0 ity of Visit REGIONAL 4.2.7.2.686 Dwayne as MATERNAL [phone] Med ical & CHILD [address] [place] [address] 2022-01-03 2022-01-03 Orders Doctor COLT 1.2.840.114 [id number] Univers 00:00:00 00:00:00 Only Unassigned, STEPHANIA 350.1.13.10 ity of [place] [facility] 4.2.7.2.686 Dwayne as [phone] [address] 2022-01-02 2022-01-02 Outpatient R AFLREDO [facility] [id number] Univers 13:30:00 15:00:16 KEVIN ity [facility] 2022-01-02 2022-01-02 Routine Risk, Eqb-Jmbkl-Xf/High [facility] 1. 2.840.114 [id number] Univers 13:30:00 15:00:16 Kevin Singh CHECK GRADER 350.1.13.10 ity of Visit [facility] 4.2.7.2.686 Dwayne as MATERNAL [phone] [facility] & CHILD [address] [place] [address] 2022-01-02 2022-01-02 Telephone [facility] 1.2.840.114 [id number] Univers 00:00:00 00:00:00 Alma C CHECK GRADER 350.1.13.10 ity of REGIONAL 4.2.7.2.686 Dwayne as MATERNAL [id number] [facility] & CHILD [address] [place] [address] 2021-12-30 2021-12-30 Routine [facility] 1.2.456.099 [id number] Univers 15:30:00 15:45:00 Alma C CHECK GRADER 350.1.13.10 ity of Visit REGIONAL 4.2.7.2.686 Dwayne as MATERNAL [id number] [facility] & CHILD [address] [place] [address] 2021-12-30 2021-12-30 Outpatient [facility] [id number] Univers 15:30:00 15:30:00 ALMA ity o f [facility] 2021-12-17 2021-12-17 [facility] [id number] Univers 14:00:00 15:10:22 ALMA ity o f [facility] 2021-12-17 2021-12-17 Routine [facility] 1.2.547.412 [id number] Univers 14:00:00 15:10:22 Alma C CHECK GRADER 350.1.13.10 ity of Visit REGIONAL 4.2.7.2.686 Dwayne as MATERNAL [phone] [facility] ical & CHILD [address] [place] [address] 2021-12-13 2021-12-13 Outpatient R LEVINDALE [facility] [id number] Univers 09:15:00 09:15:00 ALMA ity o [facility] 2021-12-10 2021-12-10 Telephone [facility] 1.2.840.114 [id number] Univers 00:00:00 00:00:00 Alma C CHECK GRADER 350.1.13.10 ity of [facility] 4.2.7.2.686 Dwayne as MATERNAL [id number] [facility] & [address] 2021-12-05 2021-12-05 Abstract [facility] 1.2.840.114 [id number] Univers 00:00:00 00:00:00 Alma C CHECK GRADER 350.1.13.10 ity of REGIONAL 4.2.7.2.686 Dwayne as MATERNAL [phone] [facility] ical & CHILD [address] [place] [address] 2021-12-01 2021-12-01 Outpatient [facility] [id number] Univers 14:52:00 18:22:00 LUKE hammonds [facility] 2021-12-01 2021-12-01 [facility] COLT Fish 1.2.190.863 [id number] Univers 14:52:00 18:22:00 Encounter Luke CAT 350.1.13.10 ity of [facility] 4.2.7.2.686 Dwayne as [phone] [facility] [address] 2021-11-30 2021-11-30 Emergency X JORGE [facility] ERT [id number] Univers 11:50:00 12:13:00 ARELI ity of [facility] 2021-11-30 2021-11-30 Emergency Jorge [facility] 1.2.840.114 [id number] Univers 11:50:00 12:13:00 Areli GUTIERREZ 350.1.13.10 ity [facility] 4.2.7.2.686 [facility] [phone] [facility] [address] 2021-11-30 2021-11-30 Letter ZamzamCOLT campos 1.2.840.114 [id number] Univers 00:00:00 00:00:00 (Out) Vijaya CAT 350.1.13.10 it y of [facility] 4.2.7.2.686 Dwayne as [phone] [facility] [address] 2021-11-29 2021-11-29 [employer] Sales[employer] [facility]trasound, [facility] 1.2 .840.114 [id number] Univers 15:15:00 16:00:00 Visit Trever Katz CHECK GRADER 350.1.13.10 ity of Zen Garcia REGIONAL 4.2.7.2.686 [place] MATERNAL [phone] Med ical & CHILD [address] [facility] 2021-11-29 2021-11-29 Outpatient P [facility] [id number] Univers 15:15:00 15:15:00 ity of [facility] 2021-11-29 2021-11-29 Outpatient R GIANNA [facility] [id number] Univers 07:45:00 08:28:49 ROSBELINDANDKel ity o f [facility] 2021-11-29 2021-11-29 Routine Gianna [facility] 1.2.840.114 [id number] Univers 07:45:00 08:28:49 Trever Clemente CHECK GRADER 350.1.13.10 ity of [facility] 4.2.7.2.686 Dwayne as MATERNAL [id number] Med ical & CHILD [address] [facility] 2021-11-28 2021-11-28 Outpatient R [facility] [id number] Univers 14:45:00 14:45:00 ALMA cassius o kari [facility] 2021-11-19 2021-11-19 Telephone [facility] 1.2.840.114 [id number] Univers 00:00:00 00:00:00 Alma C CHECK GRADER 350.1.13.10 ity of REGIONAL 4.2.7.2.686 Dwayne as MATERNAL [phone] [facility] & CHILD [address] [place] [address] 2021-11-12 2021-11-12 Routine [facility] 1.2.498.998 [id number] Univers 14:45:00 15:00:00 Alma C CHECK GRADER 350.1.13.10 ity of Visit REGIONAL 4.2.7.2.686 Dwayne as MATERNAL [phone] [facility] & [address] 2021-11-12 2021-11-12 Outpatient R [facility] [id number] Univers 14:45:00 14:45:00 ALMA braxton kari [facility] 2021-11-04 2021-11-04 [employer], Reddy [facility] [id number] Univers 15:00:00 15:30:00 ne Visit Anton Renteria CHECK GRADER [id number] ity of REGIONAL [id number] Dwayne as MATERNAL [phone] [facility] & [address] 2021-11-04 2021-11-04 Outpatient P [facility] [id number] Univers 15:00:00 15:00:00 ANTON braxton kari [facility] 2021-10-28 2021-10-28 Outpatient P [facility] [id number] Univers 15:00:00 15:00:00 ity of [facility] 2021-10-22 2021-10-22 [facility] [id number] Univers 00:00:00 00:00:00 Alma C CHECK GRADER 350.1.13.10 ity of REGIONAL 4.2.7.2.686 Dwayne as MATERNAL [phone] [facility] ical & CHILD [address] [place] [address] 2021-10-17 2021-10-17 [employer] 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 840.114 [id number] Univers 14:15:00 16:36:19 Visit Abena Patel CHECK GRADER 350.1.13.10 ity of REGIONAL 4.2.7.2.686 Dwayne as MATERNAL [phone] [facility] ical & CHILD [facility] 2021-10-17 2021-10-17 Outpatient P JORGE [facility] [id number] Univers 14:15:00 14:15:00 [facility]-10-15 2021-10-15 Outpatient R AKINSIPE, [facility] [id number] Univers 13:00:00 13:45:11 ALMA ity o [facility] 2021-10-15 2021-10-15 Routine Akinsipe, [facility] 1.2.080.295 [id number] Univers 13:00:00 13:45:11 Alma C CHECK GRADER 350.1.13.10 ity of Visit REGIONAL 4.2.7.2.686 Dwayne as MATERNAL [phone] [facility] & CHILD [address] [place] [address] 2021-10-11 2021-10-11 Outpatient P [facility] [id number] Univers 14:15:00 14:15:00 ity [facility] 2021-10-07 2021-10-07 Outpatient R AKINSIPE, [facility] [id number] Univers 12:45:00 13:37:44 ALMA ity o f [facility] 2021-10-07 2021-10-07 Routine Akinsipe, [facility] 1.2.200.640 [id number] Univers 12:45:00 13:37:44 Alma C CHECK GRADER 350.1.13.10 ity of Visit REGIONAL 4.2.7.2.686 Dwayne as MATERNAL [phone] [facility] & CHILD [address] [place] [address] 2021-10-07 2021-10-07 Orders Doctor COLT 1.2.840.114 [id number] Univers 00:00:00 00:00:00 Only Unassigned, STEPHANIA 350.1.13.10 ity of [place] [facility] 4.2.7.2.686 Dwayne as [phone] [address] 2021-10-03 2021-10-03 [facility] [id number] Univers 16:00:00 16:00:00 ALMA braxton [facility] 2021-09-19 2021-09-19 Orders Doctor COLT 1.2.840.114 [id number] Univers 00:00:00 00:00:00 Only Unassigned, STEPHANIA 350.1.13.10 ity of [place] [facility] 4.2.7.2.686 Dwayne as [phone] [address] 2021-09-05 2021-09-05 Outpatient [facility] [id number] Univers 15:30:00 16:02:29 ALMA braxton [facility] 2021-09-05 2021-09-05 Routine [facility] 1.2.951.276 [id number] Univers 15:30:00 16:02:29 Alma Estevez CHECK GRADER 350.1.13.10 ity of Visit [facility] 4.2.7.2.686 Dwayne as MATERNAL [phone] [facility] ical & CHILD [address] [place] [address] 2021-09-02 2021-09-02 Orders Doctor COLT 1.2.840.114 [id number] Univers 00:00:00 00:00:00 Only Unassigned, STEPHANIA 350.1.13.10 ity of [place] [facility] 4.2.7.2.686 Dwayne as [phone] [address] 2021-08-19 2021-08-19 Outpatient R ALICIA [facility] [id number] Univers 15:00:00 15:00:00 LUKE hammonds [facility] 2021-08-19 2021-08-19 [employer] Sales[employer] Lab, [facility] 1.2.840. 114 [id number] Univers 15:00:00 15:00:00 Visit Luke Fish CHECK GRADER 350.1.13.10 ity of REGIONAL 4.2.7.2.686 Dwayne as MATERNAL [phone] [facility] ical & CHILD [address] [place] [address] 2021-08-19 2021-08-19 [employer] Salesperson [facility] 1.2. 840.114 [id number] [facility] 14:15:00 14:51:59 Visit Luke Fish CHECK GRADER 350.1.13.10 ity of REGIONAL 4.2.7.2.686 Dwayne as MATERNAL [phone] [facility] & CHILD [address] [place] [address] 2021-08-19 2021-08-19 Outpatient P [facility] [id number] Univers 14:15:00 14:15:00 ity of [facility] 2021-08-19 2021-08-19 Abstract [facility] 1.2.840.114 [id number] Univers 00:00:00 00:00:00 Alma C CHECK GRADER 350.1.13.10 ity of REGIONAL 4.2.7.2.686 Dwayne as MATERNAL [phone] [facility] & [address] 2021-08-08 2021-08-08 [facility] [id number] Univers 15:30:00 16:15:10 ALMA ity o f [facility] 2021-08-08 2021-08-08 Routine [facility] 1.2.770.985 [id number] Univers 15:30:00 16:15:10 Alma C CHECK GRADER 350.1.13.10 ity of Visit REGIONAL 4.2.7.2.686 Dwayne as MATERNAL [phone] [facility] & CHILD [address] [place] [address] 2021-08-08 2021-08-08 Outpatient R [facility] [id number] Univers 15:30:00 16:15:10 ALMA ity o f [facility] 2021-08-08 2021-08-08 Outpatient R [facility] [id number] Univers 15:30:00 15:30:00 ALMA ity o f [facility] 2021-07-25 2021-07-25 Telephone [facility] 1.2.840.114 [id number] Univers 00:00:00 00:00:00 Alma C CHECK GRADER 350.1.13.10 ity of REGIONAL 4.2.7.2.686 Dwayne as MATERNAL [phone] [facility] ical & CHILD [address] [place] [address] 2021-07-19 2021-07-19 Orders Doctor COLT 1.2.840.114 [id number] Univers 00:00:00 00:00:00 Only Unassigned, STEPHANIA 350.1.13.10 ity of [place] [facility] 4.2.7.2.686 Dwayne as [phone] [address] 2021-07-18 2021-07-18 Outpatient Bryn SHARMA [facility] [id number] Univers 13:15:00 13:52:24 AMY hammonds [facility] 2021-07-18 2021-07-18 Routine Risk, Mzo-Ryluj-Jh/High [facility] 1. 2.840.114 [id number] Univers 13:15:00 13:52:24 Amy Sharma CHECK GRADER 350.1.13.10 ity of Visit REGIONAL 4.2.7.2.686 Dwayne as MATERNAL [id number] [facility] & CHILD [address] [place] [address] 2021-07-11 2021-07-11 Outpatient R [facility] [id number] Univers 15:00:00 16:21:03 ALMA hammonds o f [facility] 2021-07-11 2021-07-11 Initial [facility] 1.2.092.014 [id number] Univers 15:00:00 16:21:03 Alma Estevez CHECK GRADER 350.1.13.10 ity of Visit REGIONAL 4.2.7.2.686 Dwayne as MATERNAL [phone] [facility] & CHILD [address] [place] [address] 2021-07-11 2021-07-11 Outpatient [facility] [id number] Univers 15:00:00 16:21:03 ALMA radhayolie o f [facility] 2021-07-11 2021-07-11 Orders Doctor GREGORY 1.2.840.114 [id number] Univers 00:00:00 00:00:00 Only Unassigned, STEPHANIA 350.1.13.10 ity of [place] [facility] 4.2.7.2.686 Dwayne as [phone] [facility] [address] 2021-05-14 2021-05-14 Outpatient RICHARD DYKES [facility] [id number] Univers 10:40:00 10:40:00 RICHARD ANDERSON of [facility] 2021-04-27 2021-04-27 Letter COLT Wyman 1.2.840.114 [id number] Univers 00:00:00 00:00:00 (Out) Vijaya Cleopatra CAT 350.1.13.10 it y of [facility] 4.2.7.2.686 Dwayne as [phone] [facility] [address] [place] 2021-04-26 2021-04-26 Emergency X [facility] ERT [id number] Univers 17:29:00 19:21:00 KIARRA radhayolie [facility] 2021-04-26 2021-04-26 Emergency [facility] 1.2.840.114 [id number] Univers 17:29:00 19:21:00 Kiarra [facility] 350.1.13.10 i ty of [place] 4.2.7.2.686 [facility] [phone] [facility] [address] 2021-04-25 2021-04-25 Outpatient Bryn [facility] [id number] Univers 09:45:00 09:54:55 ANGELO hammonds of [facility] 2021-04-25 2021-04-25 Office [facility] 1.2.370.348 [id number] Univers 09:45:00 09:54:55 Visit Angelo [facility] 350.1.13.10 it y of [place] 4.2.7.2.686 Dwayne as JORGE?BLEA [phone] Md anselmo [address] MEDICAL OFFICE BUILDING 2021-04-18 2021-04-18 Emergency [facility] [id number] Univers 12:29:00 15:20:00 BERTHA ity of [facility] 2021-04-18 2021-04-18 Emergency [facility] 1.2.290.197 [id number] Univers 12:29:00 15:20:00 Bertha S JOSEPHINE 350.1.13.10 i ty of [place].2.7.2.[place] [id number] [facility] [address] [place] 2021-04-18 2021-04-18 Orders Doctor COLT 1.2.840.114 [id number] Univers 00:00:00 00:00:00 Only Unassigned, STEPHANIA 350.1.13.10 ity of [place] [facility] 4.2.7.2.686 Dwayne as [phone] [facility] [address] [place] 2021-04-05 2021-04-05 Telephone [facility] 1.2.840.114 [id number] Univers 00:00:00 00:00:00 Alma Estevez CHECK GRADER 350.1.13.10 ity of [facility] 4.2.7.2.686 Dwayne as MATERNAL [phone] Med ical & CHILD 107 [facility] 2021-03-22 2021-03-22 Sharon Anderson [facility] 1.2.840.114 [id number] Univers 00:00:00 00:00:00 [facility] 350.1.13.10 ity of [place] 4.2.7.2.686 Dwayne as JORGE?BLEA [phone] [address] OFFICE [facility] 2021-03-12 2021-03-12 Office Justin [facility] 1.2.840.114 [id number] Univers 16:00:00 16:44:59 Visit [facility] 350.1.13.10 ity of [place] 4.2.7.2.686 Dwayne as JORGE?BLEA [phone] [address] OFFICE [facility] 2021-03-12 2021-03-12 Outpatient R RICHARD ANDERSON [facility] [id number] Univers 16:00:00 16:44:59 RICHARD ANDERSON yolie [facility] 2021-03-12 2021-03-12 Outpatient R JUSTIN, RICHARD [facility] [id number] Univers 16:00:00 16:00:00 RICHARD ANDERSON yolie [facility] 2021-02-26 2021-02-26 Telephone Justin [facility] 1.2.840.114 [id number] Univers 00:00:00 00:00:00 [facility] 350.1.13.10 ity [facility] 4.2.7.2.686 Dwayne as JORGE?BLEA [phone] [address] MEDICAL OFFICE BUILDING 2021-02-17 2021-02-17 Emergency X SALAS [facility] ERT [id number] Univers 18:01:00 22:48:00 ARMEN [facility] 2021-02-17 2021-02-17 Emergency Raven Goldsmith [facility] 1.2.840. 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 114 [id number] Univers 10:24:34 10:39:34 Visit Abena Patel CHECK GRADER 350.1.13.10 ity [facility] 4.2.7.2.686 Dwayne as MATERNAL [phone] [facility] ical & CHILD [address] [place] [address] 2021-01-11 2021-01-11 Outpatient Bryn PATEL [facility] [id number] Univers 10:30:00 10:30:00 ABENA hammonds [facility] 2020-12-21 2020-12-21 Telephone Justin [facility] 1.2.840.114 [id number] Univers 00:00:00 00:00:00 [facility] 350.1.13.10 ity of [place] 4.2.7.2.686 Dwayne as Jorge?Blea [phone] Md anselmo thompson [address] [place] [address] Office [facility] 2020-12-18 2020-12-18 Outpatient R JORGE [facility] [id number] Univers 09:00:00 09:00:00 ABENA yolie [facility] 2020-11-26 2020-11-26 Office [facility] 1.2.840.114 [id number] Univers 07:48:27 09:58:10 Visit [facility]13.[facility] 4.2.7.2.686 Dwayne as Jorge?Blea [phone] Md anselmo thompson [address] [place] [address] Office [facility] 2020-11-26 2020-11-26 Outpatient R RICHARD ANDERSON [facility] [id number] Univers 08:00:00 08:00:00 RICHARD ANDERSON yolie [facility] 2020-11-26 2020-11-26 Letter Justin [facility] 1.2.840.114 [id number] Univers 00:00:00 00:00:00 (Out) [facility].1.13.[address] [facility] 4.2.7.2.686 Dwayne as Jorge?Blea [phone] Md anselmo thompsno [address] [place] [address] Office [facility] 2020-11-20 2020-11-20 Outpatient Bryn URIARTEERICHARD [facility] [id number] Univers 08:00:00 08:00:00 RICHARD ANDERSON [facility] 2020-11-14 2020-11-14 Telephone Justin [facility] 1.2.840.114 [id number] Univers 00:00:00 00:00:00 Richard [facility] 350.1.13.10 ity [facility] 4.2.7.2.686 [place] [phone] Md anselmo thomas [address] [place] [address] 2020-11-01 2020-11-01 Outpatient R BRAD [facility] [id number] Univers 14:00:00 14:35:39 LILIANA yolie [facility] 2020-11-01 2020-11-01 Office [facility] 1.2.840.114 [id number] Univers 13:43:12 14:35:39 Visit Liliana Evelin SPECIALTY 350.1.13.10 ity of CARE 4.2.7.2.686 [facility] AT [phone] Md anselmo BEDOYA [address] [facility] 2020-11-01 2020-11-01 Office Brad [facility] 1.2.840.114 [id number] Univers 13:43:12 14:35:39 Visit Liliana Evelin SPECIALTY 350.1.13.10 ity of CARE 4.2.7.2.686 [facility] AT [phone] Md anselmo BEDOYA [address] [facility] 2020-11-01 2020-11-01 Outpatient R BRAD [facility] [id number] Univers 14:00:00 14:00:00 LILIANA hammonds [facility] 2020-10-19 2020-10-19 Outpatient R RICHARD ANDERSON [facility] [id number] Univers 08:40:00 08:40:00 RICHARD ANDERSON [facility] 2020-10-18 2020-10-18 [facility] 1.2.840.114 [id number] Univers 12:54:28 23:59:00 Encounter Lauryn Gutierrez 350.1.13.10 ity of [place] 4.2.7.2.686 [facility] [phone] [facility] [address] [place] [address] 2020-10-18 2020-10-18 Outpatient R DESIREE [facility] [id number] Univers 00:00:00 00:00:00 LAURYN hammonds o f [facility] 2020-10-15 2020-10-15 Telephone [facility] 1.2.840.114 [id number] Univers 00:00:00 00:00:00 Abena Camarillo CHECK GRADER 350.1.13.10 it y of REGIONAL 4.2.7.2.686 Dwayne as MATERNAL [phone] Med ical & CHILD [address] [place] [address] 2020-10-15 2020-10-15 [facility]phone [facility] 1.2.840.114 [id number] 00:00:00 00:00:00 Abena N CHECK GRADER 350.1.13.10 REGIONAL 4.2.7.2.686 MATERNAL [id number] & CHILD [address] [place] [address] 2020-10-12 2020-10-12 Telephone [facility] 1.2.840.114 [id number] [facility] 00:00:00 00:00:00 Abena N CHECK GRADER 350.1.13.10 it y of REGIONAL 4.2.7.2.686 Dwayne as MATERNAL [phone] Med ical & CHILD [address] [place] [address] 2020-10-12 2020-10-12 Telephone [facility] 1.2.840.114 [id number] 00:00:00 00:00:00 Abena N CHECK GRADER 350.1.13.10 REGIONAL 4.2.7.2.686 MATERNAL [phone] & CHILD [address] [place] [address] 2020-10-11 2020-10-11 Outpatient [facility] [id number] [facility] 15:15:00 15:15:00 ABENA cassius [facility] 2020-10-11 2020-10-11 Telephone [facility] 1.2.840.114 [id number] [facility] 00:00:00 00:00:00 Abena N CHECK GRADER 350.1.13.10 it y of REGIONAL 4.2.7.2.686 Dwayne as MATERNAL [phone] Med ical & CHILD [address] [place] [address] 2020-10-11 2020-10-11 Telephone [facility] 1.2.840.114 [id number] 00:00:00 00:00:00 Abena N CHECK GRADER 350.1.13.10 REGIONAL 4.2.7.2.686 MATERNAL [phone] & CHILD [address] [place] [address] 2020-10-09 2020-10-09 Office [facility] 1.2.198.502 [id number] Univers 15:44:08 16:29:53 Visit Abena N CHECK GRADER 350.1.13.10 it y of REGIONAL 4.2.7.2.686 Dwayne as MATERNAL [phone] Med ical & CHILD [address] [place] [address] 2020-10-09 2020-10-09 Office [facility] 1.2.036.537 [id number] 15:44:08 16:29:53 Visit Abena Syd CHECK GRADER 350.1.13.10 REGIONAL 4.2.7.2.686 MATERNAL [phone] & CHILD [address] [place] [address] 2020-10-09 2020-10-09 Outpatient [facility] [id number] Univers 15:45:00 15:45:00 ABENA hammonds of [facility] 2020-10-09 2020-10-09 Orders Doctor COLT 1.2.840.114 [id number] Univers 00:00:00 00:00:00 Only Unassigned, STEPHANIA 350.1.13.10 ity of [place] [facility] 4.2.7.2.686 Dwayne as [phone] [facility] [address] [place] 2020-10-08 2020-10-08 Transition Andrei Grantsyd 1.2.840.114 [id number] Univers 00:00:00 00:00:00 of Care Mesfin Guerrero 350.1.13.10 ity of [place]2.7.2.686 [place] [id number] [facility] [address] 2020-10-01 2020-10-05 [facility] Mary Rios 1.2.840.114 [id number] Univers 09:39:00 10:22:00 Encounter S [place] 350.1.13.10 ity of Hospital 4.2.7.2.686 Dwayne as [phone] [facility] [address] 2020-10-01 2020-10-01 Outpatient R MARY RIOS [facility] [id number] Univers 08:30:00 08:30:00 ity of [facility] 2020-10-01 2020-10-01 Orders Doctor GREGORY 1.2.840.114 [id number] Univers 00:00:00 00:00:00 Only Unassigned, STEPHANIA 350.1.13.10 ity of [place] [facility] 4.2.7.2.686 Dwayne as [phone] [facility] [address] [place] 2020-09-30 2020-09-30 Orders Doctor GREGORY 1.2.840.114 [id number] Univers 00:00:00 00:00:00 Only Unassigned, STEPHANIA 350.1.13.10 ity of [place] [facility] 4.2.7.2.686 Dwayne as [id number] [facility] [address] 2020-09-28 2020-09-28 Outpatient R JORGE [facility] [id number] Univers 09:30:00 09:30:00 ABENA ity of [facility] 2020-09-26 2020-09-26 Laboratory Only, Adc Test [facility] 1.2.840. 114 [id number] Univers 12:05:49 12:20:49 Only Mary Rios 350.1.13.10 ity of [place].7.2.686 [place] [phone] [facility] [address] 2020-09-26 2020-09-26 Outpatient R [facility] [id number] Univers 12:00:00 12:00:00 ity of [facility] 2020-09-26 2020-09-26 Orders Doctor GREGORY 1.2.840.114 [id number] Univers 00:00:00 00:00:00 Only Unassigned, STEPHANIA 350.1.13.10 ity of [place] [facility] 4.2.7.2.686 Dwayne as [id number] [facility] [address] 2020-09-21 2020-09-21 Outpatient RICHARD DYKES [facility] [id number] Univers 10:00:00 10:00:00 RICHARD ANDERSON ity of [facility] 2020-09-14 2020-09-15 Emergency Glenis, TRAUMA 1.2.738.999 [id number] Univers 21:58:00 00:49:00 Cheo MOORE 350.1.13.10 ity of [place].7.2.686 [place] [phone] [facility] [address] 2020-09-12 2020-09-13 Emergency Peace Ames [facility] 1.2.840.114 [id number] Univers 19:41:00 00:37:00 Yulia Gutierrez 350.1.13.10 i ty of [place].7.2.[place] [phone] [address] 2020-09-12 2020-09-12 Telephone [facility] 1.2.840.114 [id number] Univers 00:00:00 00:00:00 Richard Gutierrez 350.1.13.10 ity of [place].7.2.686 [place] [facility] [phone] [place] 398182 [facility] 2020-09-11 2020-09-11 Emergency [facility] 1.2.098.437 [id number] Univers 20:23:00 22:08:00 Wong Gutierrez 350.1.13.10 i ty of [place].7.2.[place] [phone] [address] 2020-08-31 2020-08-31 Emergency Kwaku, K [facility] 1.2.840.114 [id number] Univers 11:19:00 13:58:00 Yulia [place] 350.1.13.10 i ty of [place].7.2.[place] [id number] [address] 2020-08-29 2020-08-29 Emergency Peace [place] [facility] 1.2.840.114 [id number] Univers 20:48:00 23:11:00 Yulia Gutierrez 350.1.13.10 i ty of [place]2.7.2.686 [place] [id number] [address] 2020-06-07 2020-06-07 Office [facility] 1.2.196.501 [id number] Univers 10:50:31 11:18:03 Visit Alma Estevez CHECK GRADER 350.1.13.10 ity of [facility] 4.2.7.2.686 Dwayne as MATERNAL [phone] Med ical & CHILD [address] [place] [address] 2020-06-07 2020-06-07 Outpatient R IRMA [facility] [id number] Univers 11:00:00 11:00:00 ALMA pierce [facility] 2020-05-29 2020-05-29 Patient Alfred [facility] 1.2.840.114 [id number] Univers 00:00:00 00:00:00 Outreach Santosh PRIMARY 350.1.13.10 i ty of [facility] 4.2.7.2.686 [place] DRAKE [phone] Me dical [address] 2020-05-13 2020-05-13 Emergency Peace [place] [facility] 1.2.840.114 [id number] Univers 19:12:00 21:45:00 Yulia [place] 350.1.13.10 i ty of [place].7.2.[place] [phone] [facility] [address] 2020-05-13 2020-05-13 Orders Doctor COLT 1.2.840.114 [id number] Univers 00:00:00 00:00:00 Only Unassigned, STEPHANIA 350.1.13.10 ity of [place] [facility] 4.2.7.2.686 Dwayne as [phone] [facility] [address] 2020-01-19 2020-01-19 Telephone Visit, [facility] 1.2.689.916 [id number] Univers 00:00:00 00:00:00 Ang-Rmchp CHECK GRADER 350.1.13.10 ity of Nurse [facility] 4.2.7.2.686 Dwayne as MATERNAL [phone] Med ical & CHILD [address] [place] [address] 2020-01-17 2020-01-17 Office [facility] 1.2.840.114 [id number] Univers 13:39:45 14:25:08 Visit Trever Clemente CHECK GRADER 350.1.13.10 ity of [facility] 4.2.7.2.686 Dwayne as MATERNAL [phone] Med ical & CHILD [address] [place] [address] 2020-01-17 2020-01-17 Outpatient R GIANNA [facility] [id number] Univers 13:45:00 13:45:00 TREVER ity o f [facility] 2020-01-16 2020-01-16 Telephone [facility] [id number] Univers 00:00:00 00:00:00 Trever Clemente CHECK GRADER [id number] ity of [facility] 4.2.7.2.686 Dwayne as MATERNAL [phone] Med ical & CHILD [address] [place] [address] 2019-12-30 2019-12-30 Nurse Visit, Reddy-Rmchp Nurse [facility] 1.2 .840.114 [id number] Univers 10:22:21 10:37:21 Visit Abena Patel CHECK GRADER 350.1.13.10 ity of [facility] [id number] Dwayne as MATERNAL [phone] Med ical & CHILD [address] [place] [address] 2019-12-30 2019-12-30 Outpatient R [facility] [id number] Univers 10:30:00 10:30:00 ity [facility] 2019-12-21 2019-12-21 [facility] [id number] Univers 00:00:00 00:00:00 Trever Clemente CHECK GRADER 350.1.13.10 ity of [facility] 4..7.2.686 Dwayne as MATERNAL [phone] [facility] ical & CHILD [address] [place] [address] 2019-12-20 2019-12-20 Office Gianna [facility] [id number] Univers 13:03:11 13:55:34 Visit Trever Clemente CHECK GRADER 350.1.13.10 ity of [facility] [id number] Dwayne as MATERNAL [phone] Med ical & CHILD [address] [place] [address] 2019-12-20 2019-12-20 Outpatient R GIANNA [facility] [id number] Univers 12:45:00 12:45:00 JUDSONEMBER ity o f [facility] 2019-10-24 2019-10-24 Telephone Jorge [facility] [id number] [id number] Univers 00:00:00 00:00:00 Abena [place] CHECK GRADER 350.1.13.10 it y of [facility] 4.2.7.2.686 Dwayne as MATERNAL [phone] Med ical & CHILD [address] [place] [address] 2019-10-17 2019-10-17 Outpatient R [facility] [id number] Univers 15:00:00 15:00:00 ity of [facility] 2019-09-28 2019-09-28 Telephone [facility] 1.2.840.114 [id number] Univers 00:00:00 00:00:00 Abena Syd CHECK GRADER 350.1.13.10 it y of [facility] 4.2.7.2.686 Dwayne as MATERNAL [phone] [facility] ical & CHILD [address] [place] [address] 2019-09-27 2019-09-27 Office [facility] 1.2.740.335 [id number] Univers 14:03:06 14:59:44 Visit Abena Syd CHECK GRADER 350.1.13.10 it y of [facility] 4.2.7.2.686 Dwayne as MATERNAL [phone] [facility] & [address] 2019-09-27 2019-09-27 [facility] [id number] Univers 14:00:00 14:00:00 ABENA [facility] 2019-08-26 2019-08-26 [employer] Lab, Ang-Rmchp [facility] 1.2.840. 114 [id number] Univers 12:52:43 13:06:01 Visit Alma Solis CHECK GRADER 350.1.13. 10 ity of [facility] 4..7.2.686 Dwayne as MATERNAL [phone] [facility] & [address] 2019-08-26 2019-08-26 Outpatient [facility] [id number] Univers 13:00:00 13:00:00 ALMA hammonds o f [facility] 2019-08-19 2019-08-19 Outpatient R [facility] [id number] Univers 13:00:00 13:00:00 ity [facility] 2019-08-18 2019-08-18 Outpatient R [facility] [id number] Univers 13:00:00 13:00:00 ity [facility] 2019-08-18 2019-08-18 Emergency X AGUS [facility] ERT [id number] Univers 08:24:15 11:52:00 RVAEN [facility] 2019-08-18 2019-08-18 [facility] 1.2.314.159 [id number] Univers 08:24:15 11:52:00 Raven Gutierrez 350.1.13.10 i ty of [place] 42.7.2.686 [facility] [phone] [address] 2019-08-18 2019-08-18 Orders Doctor COLT 1.2.840.114 [id number] Univers 00:00:00 00:00:00 Only Unassigned, STEPHANIA 350.1.13.10 ity of [place] [facility] 42.7.2.686 Dwayne as [phone] [facility] [address] 2019-07-31 2019-07-31 Telephone KulwinderCOLT 1.2.216.046 [id number] Univers 00:00:00 00:00:00 Kevin CAT 350.1.13.10 i ty of [facility] 4.2.7.2.686 Dwayne as [id number] [facility] [address] 2019-07-28 2019-07-29 Emergency X GERI, [facility] ERT [id number] Univers 18:06:33 00:02:00 SHINTA ity [facility] 2019-07-28 2019-07-29 Emergency [facility] 1.2.840.114 [id number] Univers 18:06:33 00:02:00 Tish Chitina 350.1.13.10 i ty of [place] 42.7.2.686 [facility] [phone] [address] 2019-07-18 2019-07-18 Telemedici [facility] 1.2.840.114 [id number] Univers 12:55:14 14:20:25 ne Visit Alma Estevez CHECK GRADER 350.1.13.10 ity of [facility] 4.2.7.2.686 Dwayne as MATERNAL [phone] Med ical & CHILD [address] [place] [address] 2019-07-18 2019-07-18 Outpatient R IRMA [facility] [id number] Univers 14:00:00 14:00:00 ALMA braxton f [facility] 2019-06-27 2019-06-27 Outpatient R [facility] [id number] Univers 15:30:00 15:30:00 ity of [facility] 2019-06-26 2019-06-26 Emergency X [facility] ERT [id number] Univers 19:06:29 21:03:00 LORY ity [facility] 2019-06-26 2019-06-26 Emergency [facility] 1.2.840.114 [id number] Univers 19:06:29 21:03:00 Lory [facility] 350.1.13.10 ity of [place]2.7.2.686 [place] janessa Arreola [phone] [address] ([facility]) 2019-06-26 2019-06-26 Telephone [facility], [facility] 1.2.840.114 [id number] Univers 00:00:00 00:00:00 Alma Estevez CHECK GRADER 350.1.13.10 ity of [facility] 4.2.7.2.686 [place]wayne as MATERNAL [phone] Med ical & CHILD [address] [place] [address] 2019-06-24 2019-06-24 Outpatient R [facility] [id number] Univers 09:30:00 09:30:00 ity of [facility] 2019-06-23 2019-06-23 Telemedici [facility] 1.2.840.114 [id number] Univers 12:57:38 15:49:57 ne Visit Alma Estevez CHECK GRADER 350.1.13.10 ity of [facility] 4.2.7.2.686 [place]wayne as MATERNAL [id number] [facility] & CHILD [address] [place] [address] 2019-06-23 2019-06-23 Outpatient [facility] [id number] Univers 15:30:00 15:30:00 ALMA hammonds o f [facility] 2019-06-22 2019-06-22 Outpatient R JORGE [facility] [id number] Univers 13:30:00 13:30:00 ABENA ity [facility] 2019-06-22 2019-06-22 Telephone Visit, [facility] 1.2.551.455 [id number] Univers 00:00:00 00:00:00 Reddy-Otoniel CHECK GRADER 350.1.13.10 ity of Nurse [facility] 4.2.7.2.686 Dwayne as MATERNAL [phone] [facility] ical & CHILD [address] [place] [address] 2019-06-22 2019-06-22 Refill Doctor [facility] 1.2.840.114 [id number] Univers 00:00:00 00:00:00 Unassigned, CHECK GRADER 350.1.13.10 ity of [place] [facility] 4.2.7.2.686 Dwayne as MATERNAL [phone] Med ical & CHILD [address] [facility] 2019-06-21 2019-06-21 [employer] Lab, Reddy-Rmchp [facility] 1.2.840. 114 [id number] Univers 13:00:32 13:15:32 Visit Alma Solis CHECK GRADER 350.1.13. 10 ity of [facility] 4.2.7.2.686 Dwayne as MATERNAL [phone] Med ical & CHILD [address] [place] [address] 2019-06-21 2019-06-21 Outpatient R IRMA [facility] [id number] Univers 10:30:00 10:30:00 ALMA pierce [facility] 2019-06-21 2019-06-21 Telephone [facility] 1.2.840.114 [id number] Univers 00:00:00 00:00:00 Abena [place] CHECK GRADER 350.1.13.10 it y of [facility] 4.2.7.2.686 Dwayne as MATERNAL [phone] Med ical & CHILD [address] [place] [address] 2019-06-20 2019-06-20 Telephone [facility] 1.2.840.114 [id number] Univers 00:00:00 00:00:00 Abena [place] CHECK GRADER 350.1.13.10 it y of [facility] 4.2.7.2.686 Dwayne as MATERNAL [id number] Med ical & CHILD [address] [place] [address] 2019-06-10 2019-06-10 [facility] 1.2.840.114 [id number] Univers 00:00:00 00:00:00 Abena N CHECK GRADER 350.1.13.10 it y of [facility] 4.2.7.2.686 Dwayne as MATERNAL [phone] Med ical & CHILD [address] [place] [address] 2019-05-20 2019-05-20 Telephone [facility] 1.2.840.114 [id number] Univers 00:00:00 00:00:00 Abena [place] CHECK GRADER 350.1.13.10 it y of [facility] 4.2.7.2.686 Dwayne as MATERNAL [id number] [facility] & CHILD [address] [place] [address] 2019-05-19 2019-05-19 Telephone [facility] 1.2.840.114 [id number] Univers 00:00:00 00:00:00 Abena N CHECK GRADER 350.1.13.10 it y of [facility] 4.2.7.2.686 [place]wayne as MATERNAL [phone] [address] 2019-05-17 2019-05-17 Office [facility] 1.2.447.210 [id number] Univers 13:24:09 13:50:08 Visit Abena [place] CHECK GRADER 350.1.13.10 it y of [facility] 4.2.7.2.686 Dwayne as MATERNAL [phone] [address] 2019-05-17 2019-05-17 Outpatient [facility] [id number] Univers 13:30:00 13:30:00 ABENA ityolie [facility] 2019-05-06 2019-05-06 Outpatient [facility] [id number] Univers 08:15:00 08:15:00 TREVER hammonds o f [facility] 2019-04-20 2019-04-20 Emergency Kwaku, Peace [facility] 1.2.840.114 [id number] Univers 11:02:10 14:18:00 Yulia Chitina 350.1.13.10 i ty [facility] 4.2.7.2.686 [place] [id number] [facility] [address] [place] [address] 2019-03-29 2019-03-29 Telephone [facility] 1.2.062.300 [id number] Univers 00:00:00 00:00:00 Trever Clemente CHECK GRADER 350.1.13.10 ity of [facility] 4.2.7.2.686 Dwayne as MATERNAL [id number] [facility] & CHILD [address] [place] [address] 2019-03-22 2019-03-22 Telephone DUANE Katz 1.2.096.300 [id number] Univers 00:00:00 00:00:00 Trever Clemente CHECK GRADER 350.1.13.10 ity [facility] 4.2.7.2.686 Dwayne as MATERNAL [phone] Med ical & CHILD [address] [place] [address] 2019-03-21 2019-03-21 Office DUANE Katz 1.2.840.114 [id number] Univers 15:39:38 16:25:05 Visit Trever Clemente CHECK GRADER 350.1.13.10 ity [facility] 4.2.7.2.686 Dwayne as MATERNAL [phone] [facility] & CHILD [address] [place] [address] Results Test Description Test Time Test Comments Results Result Comments Source POCT URINALYSIS W/O SPECIFIC GRAVITY 2022-06-17 19:18:00 Test Item Value Reference Range Interpretation Comme nts POCT PH U (test code = 3254) 6 mg/dl 5-8 POCT U LEUK EST (test code = 3263) 1+ Negative - Negative POCT U NIT (test code = 3262) NEG Negative - Negative POCT U PROT (test code = 3259) TRACE Negative - Negative POCT U GLU (test code = 3256) NEG Negative - Negative POCT U KETONE (test code = 3258) NEG Negative - Negative POCT U BLD (test code = 3257) NEG Negative - Negative [facility] [id number] 19:17:00 Test Item Value Reference Range Interpretation Comments POCT PREG (test code = 1605) Positive On board controls acceptable with C Yes Line (test code = 3574) POCT PREG LOT # (test code = 3575) POCT PREG TEST DATE (test code = 3576) [facility]ville[facility] [id number] 05:04:00 Test Item Value Reference Range Interpretation Comments POCT PREG (test code = 1605) negative On board controls acceptable with present C Line (test code = 3574) POCT PREG LOT # (test code = 3575) [id number] POCT PREG TEST DATE (test 2023-08-07 code = 3576) Lab Interpretation (test code = Normal 40784-5) [facility] METABOLIC PANEL ([id number])2022-04-22 04:55:23 Test Item Value Reference Range Interpretation Comments NA (test code = 135 mmol/L 135-145 2304028742) K (test code = 4.0 mmol/L 3.5-5.0 1259809956) CL (test code = 105 mmol/L 98-108 5756956402) CO2 TOTAL (test code = 24 mmol/L 23-31 4793142341) AGAP (test code = 6 2-16 8993639818) BUN (test code = 12 mg/dL 7-23 0710669125) GLUCOSE (test code = 117 mg/dL 70-110 H 8913746514) CREATININE (test code = 0.50 mg/dL 0.50-1.04 7320562945) TOTAL BILI (test code = 0.5 mg/dL 0.1-1.6 6698909716) CALCIUM (test code = 8.6 mg/dL 8.6-10.6 8025318799) T PROTEIN (test code = 6.3 g/dL 6.3-8.2 1482043713) ALBUMIN (test code = 4.0 g/dL 3.5-5.0 8659254116) ALK PHOS (test code = 71 U/L 34-122 6433568579) ALTv (test code = 25 U/L 5-35 1742-6) AST(SGOT) (test code = 30 U/L 13-40 3884153756) eGFR (test code = 150.3 mL/min/1.73m2 8707908138) MARCELLE (test code = MARCELLE) Association of [...] tests). Lab Interpretation Abnormal (test code = 04294-3) [facility] WITH [id number] 04:43:57 Test Item Value Reference Range Interpretation Comments WBC (test code = 8.83 See_Comment [Automated 9515-2) message] The sy stem which generated this result transmitted reference range : 4.30 - 11.10 10*3/?L. The reference range was not used to interpret this result as normal/abnormal . RBC (test code = 4.30 See_Comment [Automated 083-8) message] The sy stem which generated this result transmitted reference range : 3.93 - 5.25 10*6/?L. The reference range was not used to interpret this result as normal/abnormal . HGB (test code = 11.0 g/dL 11.6-15.0 L 718-7) HCT (test code = 35.2 % 35.7-45.2 L 4544-3) MCV (test code = 81.9 fL 80.6-95.5 787-2) MCH (test code = 25.6 pg 25.9-32.8 L 785-6) MCHC (test code = 31.3 g/dL 31.6-35.1 L 786-4) RDW-SD (test code = 44.5 fL 39.0-49.9 67075-0) RDW-CV (test code = 15.0 % 12.0-15.5 788-0) PLT (test code = 270 See_Comment [Automated 728-3) message] The sy stem which generated this result transmitted reference range : 166 - 358 10*3/ ?L. The reference r david was not used to interpret this result as normal/abnormal . MPV (test code = 10.5 fL 9.5-12.9 49520-1) NRBC/100 WBC (test 0.0 See_Comment [Automat ed code = 4507786336) message] The system which generated this result transmitted reference range : 0.0 - 10.0 /100 WBCs. The refer ence range was not u sed to interpret th is result as normal/abnormal . NRBC x10^3 (test code See_Comment [Auto mated = 2160126401) message] The s ystem which generated this result transmitted reference range : 10*3/?L. The reference range was not used to interpret this result as normal/abnormal . GRAN MAT (NEUT) % 54.9 % (test code = 770-8) IMM GRAN % (test code 0.60 % = 8857925741) LYMPH % (test code = 35.8 % 736-9) MONO % (test code = 6.5 % 5905-5) EOS % (test code = 1.7 % 713-8) BASO % (test code = 0.5 % 706-2) GRAN MAT x10^3(ANC) 4.86 10*3/uL 1.88-7.09 (test code = 9881794172) IMM GRAN x10^3 (test 0.05 10*3/uL 0.00-0.06 code = 5234793178) LYMPH x10^3 (test code 3.16 10*3/uL 1.32-3.29 = 731-0) MONO x10^3 (test code 0.57 10*3/uL 0.33-0.92 = 742-7) EOS x10^3 (test code = 0.15 10*3/uL 0.03-0.39 711-2) BASO x10^3 (test code 0.04 10*3/uL 0.01-0.07 = 704-7) Lab Interpretation Abnormal (test code = 54138-0) [facility]ville[facility] and Screen - ONCE [id number] 20:36:00 Test Item Value Reference Range Interpretation Comments ABO & RH (test code O Negative Performe d at [facility] = 20) Laboratory Serv [facility] Blood Bank1 [address] [place], [place] [address]Mrcu Free: [phone] A No. [id number] IAT (test code = Positive Performed a t [facility] 1185) Laboratory Serv [facility] Blood Bank1 [address] [place] [address]Toll Free: [phone] A No. [id number] [facility] GreenvilleMAGNESIUM2022-12-11 19:33:27 Test Item Value Reference Range Interpretation Comments MAGNESIUM (test code = 5163556813) 2.0 mg/dL 1.7-2.4 Lab Interpretation (test code = Normal 19799-4) [facility] GreenvilleTROPONIN [id number] 19:16:05 Test Item Value Reference Interpretation Comments Range TROPONIN I (test 0.001 ng/mL See_Comment [Automated code = 7788988390) message] The system which generated this result [...] biotin. Lab Interpretation Normal (test code = 65183-1) [facility] GreenvilleN-TERMINAL [id number] 19:13:04 Test Item Value Reference Range Interpretation Comments NT-proBNP (test code 189 pg/mL See_Comment H [Autom ated = 5337761110) message] The system which generated this result transmitted reference range : <=125. The reference range was not used to interpret this result as normal/abnormal . MARCELLE (test code = MARCELLE) Biotin has been reported to cause a negative bias, interpret results relative to patient's use of biotin. Lab Interpretation Abnormal (test code = 42348-3) [facility]. METABOLIC PANEL (76599)2022-02-16 19:04:06 Test Item Value Reference Range Interpretation Comments NA (test code = 139 mmol/L 135-145 0946265039) K (test code = 4.0 mmol/L 3.5-5.0 5961813435) CL (test code = 110 mmol/L 98-108 H 1198832582) CO2 TOTAL (test code = 24 mmol/L 23-31 5492687904) AGAP (test code = 2-16 5672772906) BUN (test code = 10 mg/dL 7-23 0524040831) GLUCOSE (test code = 78 mg/dL 70-110 6111122341) CREATININE (test code = 0.49 mg/dL 0.50-1.04 L 7564146973) TOTAL BILI (test code = 0.3 mg/dL 0.1-1.1 2190475946) CALCIUM (test code = 8.7 mg/dL 8.6-10.6 4938294248) T PROTEIN (test code = 5.5 g/dL 6.3-8.2 L 2475792422) ALBUMIN (test code = 3.2 g/dL 3.5-5.0 L 3000270560) ALK PHOS (test code = 126 U/L 34-122 H 6124045676) ALTv (test code = 21 U/L 5-35 1742-6) AST(SGOT) (test code = 30 U/L 13-40 1221245369) eGFR (test code = mL/min/1.73m2 1791141774) MARCELLE (test code = MARCELLE) Association of [...] tests). Lab Interpretation Abnormal (test code = 32802-5) [facility] GreenvilleACTIVATED PARTIAL THRMPLAS [id number] 19:03:06 Test Item Value Reference Range Interpretation Comments APTT Patient (test See_Comment [Automat ed code = 3173-2) message] The system which generated this result transmitted reference range : 23 - 38 Seconds . The reference range was not used to interpr et this result as normal/abnormal . MARCELLE (test code = MARCELLE) The [facility] patient population mean normal value for aPTT is 30 seconds. Lab Interpretation Normal (test code = 96850-9) [facility] GreenvillePROTHROMBIN TIME / [id number] 19:01:04 Test Item Value Reference Range Interpretation [...] tions. Lab Interpretation (test Normal code = 20022-7) [facility] WITH [id number] 18:49:05 Test Item Value Reference Range Interpretation [...] RDW-SD (test code = 45.1 fL 39.0-49.9 88081-2) RDW-CV (test code = 14.1 % 12.0-15.5 788-0) PLT (test code = See_Comment [Automated 777-3) message] The sy stem which generated this result transmitted reference range : 166 - 358 10*3/ ?L. The reference r david was not used to interpret this result as normal/abnormal . MPV (test code = 10.4 fL 9.5-12.9 53643-6) NRBC/100 WBC (test See_Comment [Automat ed code = 4560944072) message] The system which generated this result transmitted reference range : 0.0 - 10.0 /100 WBCs. The refer ence range was not u sed to interpret th is result as normal/abnormal . NRBC x10^3 (test code See_Comment [Auto mated = 2068263886) message] The s ystem which generated this result transmitted reference range : 10*3/?L. The reference range was not used to interpret this result as normal/abnormal . GRAN MAT (NEUT) % 72.7 % (test code = 770-8) IMM GRAN % (test code 1.30 % = 9196360168) LYMPH % (test code = 16.8 % 736-9) MONO % (test code = 6.7 % 5905-5) EOS % (test code = 2.3 % 713-8) BASO % (test code = 0.2 % 706-2) GRAN MAT x10^3(ANC) 6.67 10*3/uL 1.88-7.09 (test code = 7022989947) IMM GRAN x10^3 (test 0.12 10*3/uL 0.00-0.06 H code = 9332391879) LYMPH x10^3 (test code 1.54 10*3/uL 1.32-3.29 = 731-0) MONO x10^3 (test code 0.61 10*3/uL 0.33-0.92 = 742-7) EOS x10^3 (test code = 0.21 10*3/uL 0.03-0.39 711-2) BASO x10^3 (test code 0.01-0.07 = 704-7) Lab Interpretation Abnormal (test code = 11175-0) [facility] GreenvilleFETAL MATERNAL HEMO [id number] 12:29:12 Test Item Value Reference Range Interpretation Comments SCREEN (test Negative Performed at [facility] code = 846) Laboratory Serv [facility] Blood [address] [place], [place] [address]Avwj Free: [phone] A No. [id number] RHIG REQUIRED? 1 Syringe baby rh posPe rformed at (test code = 1747) [facility] Blood Ban k[address] [facility] s [address]Jayv Free: [phone] A No. [id number] [facility] GreenvilleRHO (D) IMMUNE [id number] 19:43:42 Test Item Value Reference Range Interpretation Comments RHIG CANDIDATE? (test Yes- see A Patien t is a code = 5055) comment candidate for RhIg- Patient i s Rh Negative and baby is Rh Positive.Perfor me d at [facility] Laboratory Services [facility] Blood [address] [address]Pqvn Free: [phone] A No. [id number] Lab Interpretation Abnormal (test code = 93899-4) [facility] GreenvilleARTERIAL CORD [id number] 17:18:47 Test Item Value Reference Range Interpretation Comments BASE EXCESS, CORD mEq/L QUES (test code = 9473903645) AC PH, CORD (BEAKER) 7.18-7.38 (test code = 2742930182) PC02, CORD (test code See_Comment [Auto mated message] The = 2565364667) system which g enerated this result transmit con reference range : 32 - 66 mmHg. The refer ence range was not used to interpret this result as normal/abnormal . PO2, CORD (test code See_Comment [Autom ated message] The = 1781150105) system which g enerated this result transmit con reference range : 10 - 30 mmHg. The refer ence range was not used to interpret this result as normal/abnormal . BICARBONATE, CORD See_Comment [Automate d message] The (test code = system which ge nerated this 3417302079) result transmit con reference range : 17 - 27 mEq/L. The refe rence range was not used to interpret this result as normal/abnormal . [facility] GreenvilleVENOUS CORD [id number] 17:17:10 Test Item Value Reference Range Interpretation Comments VENOUS BASE EXCESS, mEq/L CORD (test code = 0857062682) VENOUS PH, CORD (test 7.25-7.45 code = 3844539491) VENOUS PC02, CORD See_Comment [Automate d message] The (test code = system which ge nerated 4111589210) this result tra nsmitted reference range : 27 - 49 mmHg. The refer ence range was not used to interpret this result as normal/abnormal . VENOUS PO2, CORD (test See_Comment [Aut omated message] The code = 5861953395) system wh ich generated this result tra nsmitted reference range : 17 - 41 mmHg. The refer ence range was not used to interpret this result as normal/abnormal . VENOUS BICARBONATE, See_Comment QUES [Au tomated message] CORD (test code = The system which generated 4830145709) this result tra nsmitted reference range : 12 - 29 mEq/L. The refe rence range was not used to interpret this result as normal/abnormal . [facility] GreenvilleGALV ONLY - SYPHILIS [id number] 17:00:56 Test Item Value Reference Range Interpretation Comments Syphilis IgG/IgM (test Non-reactive Non-reactive code = 90985-9) MARCELLE (test code = MARCELLE) Non-reactive - No serologic evidence of T. pallidum infection. Cannot exclude incubating or early syphilis. Submit a second specimen in 2-4 weeks if syphilis is clinically suspected. Equivocal - Further testing to follow. Reactive - Further testing to follow. Lab Interpretation (test Normal code = 30187-1) [facility] GreenvilleHIV 1/2 AG-AB WITH [id number] 02:53:04 Test Item Value Reference Range Interpretation Comments HIV Negative Negative Semi-quantitative (test code = 14789-8) MARCELLE (test code = Non-reactive for HIV-1 MARCELLE) antigen and HIV-1/HIV-2 antibodies. ?No laboratory evidence of HIV infection. ?Repeat in 2-4 weeks if acute HIV infection is suspected. [facility] GreenvilleType and Screen - ONCE [id number] 01:21:03 Test Item Value Reference Range Interpretation Comments ABO & RH (test code O NEGATIVE Performe d at [facility] = 20) Laboratory Serv [facility] Blood Bank[address] [facility] s [address]Sctb Free: [phone] A No. [id number] IAT (test code = Positive Performed a t [facility] 1185) Laboratory Serv [facility] Blood [facility] [address] [facility] s [address]Dejn Free: [phone] A No. [id number] [facility] GreenvilleANTI-D R/O [id number] 01:21:03 Test Item Value Reference Range Interpretation Comments ANTIBODY (test Anti-D Probable RHIG given on code = 683) RhIg 01/02/22Perform ed at [facility] Laborat ory Services - [facility] Blood [address]vzb[address] [facility] s [address]Lmdd Free: [phone] A No. [id number] [facility] GreenvilleHepatitis B Surface [id number] 00:41:53 Test Item Value Reference Range Interpretation Comments HBsAg Semi-Quantitative (test code = Negative Negative 5195-3) [facility] with [id number] 23:41:21 Test Item Value Reference Range Interpretation [...] RDW-SD (test code = 43.6 fL 39.0-49.9 25700-7) RDW-CV (test code = 14.1 % 12.0-15.5 788-0) PLT (test code = See_Comment [Automated 777-3) message] The sy stem which generated this result transmitted reference range : 166 - 358 10*3/ ?L. The reference r david was not used to interpret this result as normal/abnormal . MPV (test code = 10.8 fL 9.5-12.9 98551-7) NRBC/100 WBC (test See_Comment [Automat ed code = 0462587980) message] The system which generated this result transmitted reference range : 0.0 - 10.0 /100 WBCs. The refer ence range was not u sed to interpret th is result as normal/abnormal . NRBC x10^3 (test code See_Comment [Auto mated = 1132486263) message] The s ystem which generated this result transmitted reference range : 10*3/?L. The reference range was not used to interpret this result as normal/abnormal . GRAN MAT (NEUT) % 64.7 % (test code = 770-8) IMM GRAN % (test code 1.20 % = 1081029259) LYMPH % (test code = 25.1 % 736-9) MONO % (test code = 7.4 % 5905-5) EOS % (test code = 1.3 % 713-8) BASO % (test code = 0.3 % 706-2) GRAN MAT x10^3(ANC) 6.10 10*3/uL 1.88-7.09 (test code = 1712584516) IMM GRAN x10^3 (test 0.11 10*3/uL 0.00-0.06 H code = 5661831110) LYMPH x10^3 (test code 2.36 10*3/uL 1.32-3.29 = 731-0) MONO x10^3 (test code 0.70 10*3/uL 0.33-0.92 = 742-7) EOS x10^3 (test code = 0.12 10*3/uL 0.03-0.39 711-2) BASO x10^3 (test code 0.03 10*3/uL 0.01-0.07 = 704-7) Lab Interpretation Abnormal (test code = 91099-9) [facility] URINALYSIS W SPECIFIC [id number] 20:06:00 Test Item Value Reference Range Interpretation [...] POCT U APPEAR (test code = 3267) [facility] [id number] 22:20:00 Test Item Value Reference Range Interpretation [...] U APPEAR (test code = 3267) . [facility] Screen - ONCE [id number] 23:17:31 Test Item Value Reference Range Interpretation Comments ABO & RH (test code O Negative Performe d at [facility] = 20) Laboratory [facility] [address] [place] [address] Free: [phone] A No. [id number] IAT (test code = Positive Performed a t [facility] 1185) Laboratory [facility] [address] [place], [place] [address]Toll Free: [phone] A No. [id number] [facility] WITH [id number] 05:45:31 Test Item Value Reference Range Interpretation Comments WBC (test code = See_Comment [Automated 1037-2) message] The sy stem which generated this [...] RDW-SD (test code = 43.4 fL 39.0-49.9 21770-5) RDW-CV (test code = 13.9 % 12.0-15.5 788-0) PLT (test code = See_Comment [Automated 777-3) message] The sy stem which generated this result transmitted reference range : 166 - 358 10*3/ ?L. The reference r david was not used to interpret this result as normal/abnormal . MPV (test code = 11.2 fL 9.5-12.9 02695-8) NRBC/100 WBC (test See_Comment [Automat ed code = 8429127714) message] The system which generated this result transmitted reference range : 0.0 - 10.0 /100 WBCs. The refer ence range was not u sed to interpret th is result as normal/abnormal . NRBC x10^3 (test code See_Comment [Auto mated = 7355903009) message] The s ystem which generated this result transmitted reference range : 10*3/?L. The reference range was not used to interpret this result as normal/abnormal . GRAN MAT (NEUT) % 67.3 % (test code = 770-8) IMM GRAN % (test code 1.00 % = 4188218601) LYMPH % (test code = 23.3 % 736-9) MONO % (test code = 7.1 % 5905-5) EOS % (test code = 1.0 % 713-8) BASO % (test code = 0.3 % 706-2) GRAN MAT x10^3(ANC) 5.85 10*3/uL 1.88-7.09 (test code = 5968497594) IMM GRAN x10^3 (test 0.09 10*3/uL 0.00-0.06 H code = 7334324442) LYMPH x10^3 (test code 2.03 10*3/uL 1.32-3.29 = 731-0) MONO x10^3 (test code 0.62 10*3/uL 0.33-0.92 = 742-7) EOS x10^3 (test code = 0.09 10*3/uL 0.03-0.39 711-2) BASO x10^3 (test code 0.03 10*3/uL 0.01-0.07 = 704-7) Lab Interpretation Abnormal (test code = 11081-0) [facility] WITH [id number] 05:45:31 Test Item Value Reference Range Interpretation Comments WBC (test code = See_Comment [Automated 5290-2) message] The sy stem which generated this [...] RDW-SD (test code = 43.4 fL 39.0-49.9 01903-7) RDW-CV (test code = 13.9 % 12.0-15.5 788-0) PLT (test code = See_Comment [Automated 657-3) message] The sy stem which generated this result transmitted reference range : 166 - 358 10*3/ ?L. The reference r david was not used to interpret this result as normal/abnormal . MPV (test code = 11.2 fL 9.5-12.9 14175-4) NRBC/100 WBC (test See_Comment [Automat ed code = 7509105016) message] The system which generated this result transmitted reference range : 0.0 - 10.0 /100 WBCs. The refer ence range was not u sed to interpret th is result as normal/abnormal . NRBC x10^3 (test code See_Comment [Auto mated = 1866045782) message] The s ystem which generated this result transmitted reference range : 10*3/?L. The reference range was not used to interpret this result as normal/abnormal . GRAN MAT (NEUT) % 67.3 % (test code = 770-8) IMM GRAN % (test code 1.00 % = 7633869846) LYMPH % (test code = 23.3 % 736-9) MONO % (test code = 7.1 % 5905-5) EOS % (test code = 1.0 % 713-8) BASO % (test code = 0.3 % 706-2) GRAN MAT x10^3(ANC) 5.85 10*3/uL 1.88-7.09 (test code = 6266421318) IMM GRAN x10^3 (test 0.09 10*3/uL 0.00-0.06 H code = 1569540890) LYMPH x10^3 (test code 2.03 10*3/uL 1.32-3.29 = 731-0) MONO x10^3 (test code 0.62 10*3/uL 0.33-0.92 = 742-7) EOS x10^3 (test code = 0.09 10*3/uL 0.03-0.39 711-2) BASO x10^3 (test code 0.03 10*3/uL 0.01-0.07 = 704-7) Lab Interpretation Abnormal (test code = 59725-9) [facility] URINALYSIS W SPECIFIC [id number] 20:37:00 Test Item Value Reference Range Interpretation [...] U APPEAR (test code = 3267) clear [facility] URINALYSIS W SPECIFIC [id number] 20:37:00 Test Item Value Reference Range Interpretation [...] U APPEAR (test code = 3267) clear [facility] URINALYSIS W SPECIFIC [id number] 20:37:00 Test Item Value Reference Range Interpretation [...] U APPEAR (test code = 3267) clear [facility] URINALYSIS W SPECIFIC [id number] 19:00:00 Test Item Value Reference Range Interpretation [...] U APPEAR (test code = 3267) . [facility] URINALYSIS W SPECIFIC [id number] 21:06:00 Test Item Value Reference Range Interpretation [...] U APPEAR (test code = 3267) clear [facility] URINALYSIS W SPECIFIC [id number] 16:34:00 Test Item Value Reference Range Interpretation [...] U APPEAR (test code = 3267) clear [facility] URINALYSIS W SPECIFIC [id number] 17:00:00 Test Item Value Reference Range Interpretation [...] U APPEAR (test code = 3267) [facility] [id number] 18:51:00 Test Item Value Reference Range Interpretation [...] 3267) Lab Interpretation (test code = Abnormal 65861-7) [facility] URINALYSIS W SPECIFIC [id number] 19:16:00 Test Item Value Reference Range Interpretation [...] POCT U APPEAR (test code = 3267) [facility] URINALYSIS W SPECIFIC [id number] 18:26:00 Test Item Value Reference Range Interpretation [...] clear Lab Interpretation (test code = Normal 10688-5) [facility] URINALYSIS W SPECIFIC [id number] 20:47:00 Test Item Value Reference Range Interpretation [...] POCT U APPEAR (test code = 3267) [facility] URINALYSIS W SPECIFIC [id number] 19:47:00 Test Item Value Reference Range Interpretation [...] POCT U APPEAR (test code = 3267) [facility] URINALYSIS W SPECIFIC [id number] 19:47:00 Test Item Value Reference Range Interpretation [...] POCT U APPEAR (test code = 3267) [facility] URINALYSIS W SPECIFIC [id number] 13:14:00 Test Item Value Reference Range Interpretation [...] U APPEAR (test code = 3267) . [facility] URINALYSIS W SPECIFIC [id number] 13:14:00 Test Item Value Reference Range Interpretation [...] U APPEAR (test code = 3267) . [facility] URINALYSIS W SPECIFIC [id number] 13:14:00 Test Item Value Reference Range Interpretation [...] U APPEAR (test code = 3267) . [facility] URINALYSIS W SPECIFIC [id number] 13:14:00 Test Item Value Reference Range Interpretation [...] U APPEAR (test code = 3267) . [facility] URINALYSIS W SPECIFIC [id number] 13:14:00 Test Item Value Reference Range Interpretation [...] U APPEAR (test code = 3267) . [facility] URINALYSIS W SPECIFIC [id number] 13:14:00 Test Item Value Reference Range Interpretation [...] U APPEAR (test code = 3267) . [facility] URINALYSIS W SPECIFIC [id number] 13:14:00 Test Item Value Reference Range Interpretation [...] U APPEAR (test code = 3267) . [facility] URINALYSIS W SPECIFIC [id number] 13:14:00 Test Item Value Reference Range Interpretation [...] U APPEAR (test code = 3267) . [facility] [id number] 13:14:00 Test Item Value Reference Range Interpretation [...] U APPEAR (test code = 3267) . [facility] [id number] 18:22:00 Test Item Value Reference Range Interpretation Comments LITHIUM LEVEL (BEAKER) 0.8 mmol/L 0.8-1.2 (test code = 630) SCAN RESULT (test code = See Scanned Report [id number]) [place], [id number] 14:13:01Reason for exam:->abnormal imaging [facility] CENTERName: STEPHAN SUMMER : 1995 Sex: FFluoroscopic unit utilized for a procedure performed in the OR. No interpretation was requested. Refer to the operative report for findings. Refer to PACS for patient radiation dose information.COMPREHENSIVE METABOLIC [id number] 06:43:00 Test Item Value Reference Range Interpretation [...] S NOT APPLICABLE FOR DIALYSIS PATIEN TS. 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 Welding Instructor ID - PIAYA [facility] (HEMOGRAM ONLY)2020-09-23 [...] (BEAKER) (test code = 413) COMPREHENSIVE METABOLIC [id number] 08:27:00 Test Item Value Reference Range Interpretation [...] S NOT APPLICABLE FOR DIALYSIS PATIEN TS. Welding Instructor ID - MADISON [id number] 08:27:00 Test Item Value Reference Range Interpretation Comments MAGNESIUM (BEAKER) (test code = 2.4 mg/dL 1.6-2.6 627) Welding Instructor ID - MADISON MPROTHROMBIN [id number] 07:59:00 Test Item Value Reference Range Interpretation Comments PROTIME (BEAKER) 13.0 seconds 11.9-14.2 (test code = 759) INR (BEAKER) (test 1.00 See_Comment [Automat ed message] code = 370) The system [employer] generated this result transmitted ref erence range: <=5.90. The reference range was not used to int erpret this result as normal/abnormal . RECOMMENDED COUMADIN/WARFARIN INR THERAPY RANGESSTANDARD DOSE: 2.0 - 3.0 Includes: PROPHYLAXIS for venous thrombosis, systemic embolization; TREATMENT for venous thrombosis and/or pulmonary embolus.HIGH RISK: Target INR is 2.5-3.5 for patients with mechanical heart valves.CBC W/PLT COUNT & AUTO [id number] 07:49:00 Test Item Value Reference Range Interpretation [...] 0-1 H PERCENT (BEAKER) (test code = 2801)"
[2022-07-05 22:28] LABS: Absolute Lymphocytes (CBC) 2.9 K/uL (0.7-4.9); Hematocrit 37.9 % (36.0-45.0); Lymphocytes % 25.4 % (15.3-44.8); MCV 80.8 fL (80-100); MPV 7.7 fL (7.6-11.3); RBC Red Blood Cell Count 4.68 M/uL (3.86-4.86)
[2022-07-05 22:35] LABS: Protime INR 0.95
[2022-07-05 23:10] LABS: ALT/SGPT 23 U/L (13-56); Albumin 3.4 g/dL (3.4-5.0); Alkaline Phosphatase 87 U/L (45-117); BUN Blood Urea Nitrogen 6 mg/dL (7-18); Bicarbonate 25 mEq/L (21-32); Bilirubin Total 0.3 mg/dL (0.2-1.0); Glomerular Filtration Rate 124 ml/min (=/>90); Glucose Level 96 mg/dL (74-106); Protein, Total 7.1 g/dL (6.4-8.2); Sodium Level 137 mEq/L (136-145)
[2022-07-05 23:15] LABS: AST/SGOT 23 U/L (15-37); Bilirubin Direct < 0.1 mg/dL (0-0.2); Potassium 3.7 mEq/L (3.5-5.1)
--- NOTE | 2022-07-06 00:01 | ER ---
Nurse's Notes [facility] Name: Mile Wang Age: 27 yrs Sex: Female : 1995 Arrival Date: 07/05/2022 Time: 21:20 Bed 6 Private MD: Diagnosis: Pseudoseizures, psychogenic seizures, at 6 weeks 5 days EGA, first trimester Presentation: 07/05 21:33 Chief complaint: EMS states: Pt's family reports witnessing 5 psychogenic seizures SOURCING INTERN jb4 of EMS and gave 1mg of ativan. Pt appeared to be having another seizure and was given 2.5 of versed x2. Coronavirus screen: At this time, the client does not indicate any symptoms associated with coronavirus-19. Ebola Screen: No symptoms or risks identified at this time. Initial Sepsis Screen: Does the patient meet any 2 criteria? RR > 20 per min. HR > 90 bpm. Yes Does the patient have a suspected source of infection? No. Patient's initial sepsis screen is negative. Risk Assessment: Do you want to hurt yourself or someone else? Patient reports no desire to harm self or others. Onset of symptoms was July 05, 2022. Transition of care: patient was not received from another setting of care. 21:33 Method Of Arrival: EMS: [facility] jb4 21:33 Acuity: BAIRON 3 jb4 Triage Assessment: 21:38 General: Appears in no apparent distress. uncomfortable, Behavior is calm, cooperative. jb4 Pain: Denies pain. Neuro: Level of Consciousness is awake, lethargic, Oriented to person, place, time, situation. 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 jb4 Historical: - Allergies: 21:38 Doxycycline; jb4 21:38 Macrobid; jb4 21:38 tramadol; jb4 21:38 Vimpat; jb4 - PMHx: 21:38 angina pectoris; Anxiety; Bipolar disorder; Psychogenic Seizures; Seizures; stent in jb4 gallbladder; - PSHx: 21:38 Cholecystectomy; Tonsillectomy; jb4 - Immunization history:: Adult Immunizations up to date. - Social history:: Smoking status: Patient denies any tobacco usage or history of. - Family history:: not pertinent. Screenin:40 [facility] ED Fall Risk Assessment (Adult) History of falling in the last 3 months, jb4 including since admission No falls in past 3 months (0 pts) Confusion or Disorientation No (0 pts) Score/Fall Risk Level 0 - 2 = Low Risk Oriented to surroundings, Maintained a safe environment. Abuse screen: Denies threats or abuse. Nutritional screening: No deficits noted. Tuberculosis screening: No symptoms or risk factors identified. Assessment: 21:40 General: Appears in no apparent distress. comfortable, Behavior is calm, cooperative, jb4 appropriate for age. Pain: Denies pain. Neuro: Level of Consciousness is awake, lethargic, Oriented to person, place, time, situation. Cardiovascular: Patient's skin is warm and dry. Respiratory: Airway is patent Respiratory effort is even, unlabored, Respiratory pattern is regular, symmetrical. GI: No signs and/or symptoms were reported involving the gastrointestinal system. : No signs and/or symptoms were reported regarding the genitourinary system. EENT: No signs and/or symptoms were reported regarding the EENT system. Derm: Skin is intact, Skin is pink, warm \T\ dry. 23:30 General: Patient refused further treatment and wanted to go home, patient provided with pf1 verbal discharge instructions. Vital Signs: 21:33 BP 130 / 82; Pulse 101; Resp 22; Temp 98.8(O); Pulse Ox 96% on R/A; Weight 93 kg (M); jb4 Capo Coma Score: 21:38 Eye Response: spontaneous(4). Motor Response: obeys commands(6). Verbal Response: jb4 oriented(5). Total: 15. ED Course: 21:27 Patient arrived in ED. mr 21:33 Theodore Woods, RN is Primary Nurse. jb4 21:38 Triage completed. jb4 21:38 Pasha Espinal MD is Attending Physician. sp4 21:38 Arm band placed on right wrist. jb4 22:45 US OB Limited In Process Unspecified. EDMS 07/06 00:02 No provider procedures requiring assistance completed. Patient did not have IV access jb4 during this emergency room visit. Administered Medications: No medications were administered Outcome: 07/05 23:30 Discharged to home ambulatory, with family. pf1 23:30 Condition: stable pf1 23:30 Instructed on discharge instructions, follow up and referral plans. Demonstrated understanding of instructions, follow-up care. 07/06 00:00 Discharge ordered by spNadege 00:02 Eloped from patient exam room, after seeing physician Time discovered patient gone: pablo July 05, 2022 at 23:30 00:02 Patient left the ED. jb4 Signatures: Dispatcher [employer] JIMHI Beth HerrTheodore RN RN jb4 Kathya greer RN RN pf1 Pasha Espinal MD MD sp4
--- NOTE | 2022-07-06 00:02 | EDPHYS ---
Physician Documentation [facility] Name: Mile Wang Age: 27 yrs Sex: Female : 1995 Arrival Date: 07/05/2022 Time: 21:20 Bed 6 Private MD: ED Physician Pasha Espinal HPI: 07/05 21:38 This 27 yrs old White Female presents to ER via EMS with complaints of Seizure. sp4 23:49 27-year-old female presents with EMS for complaint of pseudoseizures at home.. sp4 23:54 Patient was given p.o. Ativan by her family for pseudoseizures which commonly happens sp4 to the patient, patient manifested with another convulsive type pseudoseizure by EMS and was given IV 4 mg of Versed. On arrival patient is reporting that she is 9 weeks estimated EGA 9 weeks 0 days patient is . No other complaints on arrival. Patient has history of anxiety, bipolar disorder, psychogenic seizures. 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 jb4 Historical: - Allergies: 21:38 Doxycycline; jb4 21:38 Macrobid; jb4 21:38 tramadol; jb4 21:38 Vimpat; jb4 - PMHx: 21:38 angina pectoris; Anxiety; Bipolar disorder; Psychogenic Seizures; Seizures; stent in jb4 gallbladder; - PSHx: 21:38 Cholecystectomy; Tonsillectomy; jb4 - Immunization history:: Adult Immunizations up to date. - Social history:: Smoking status: Patient denies any tobacco usage or history of. - Family history:: not pertinent. ROS: 23:54 Constitutional: Negative for fever, chills, and weight loss, Eyes: Negative for injury, sp4 pain, redness, and discharge, ENT: Negative for injury, pain, and discharge, Neck: Negative for injury, pain, and swelling, Cardiovascular: Negative for chest pain, palpitations, and edema, Respiratory: Negative for shortness of breath, cough, wheezing, and pleuritic chest pain, Abdomen/GI: Negative for abdominal pain, nausea, vomiting, diarrhea, and constipation, Back: Negative for injury and pain, : Negative for injury, bleeding, discharge, and swelling, MS/Extremity: Negative for injury and deformity, Skin: Negative for injury, rash, and discoloration, Neuro: Negative for headache, weakness, numbness, tingling, positive for convulsive activity consistent with prior history of pseudoseizure Psych: Negative for depression, anxiety, Allergy/Immunology: Negative for hives, rash, and allergies Endocrine: Negative for neck swelling, polydipsia, polyuria, polyphagia, and weight changes Hematologic/Lymphatic: Negative for swollen nodes, abnormal bleeding, and unusual bruising Exam: 23:54 Constitutional: This is a well developed, well nourished patient who is awake, alert, sp4 and in no acute distress. Patient seems mildly impaired after IV Versed but is responsive and cooperative. Head/Face: Normocephalic, atraumatic. Eyes: Pupils equal round and reactive to light, extra-ocular motions intact. Lids and lashes normal. Conjunctiva and sclera are not injected. Cornea within normal limits. Periorbital areas with no swelling, redness, or edema. ENT: Nares patent. No nasal discharge, no septal abnormalities noted. Tympanic membranes are normal and external auditory canals are clear. Oropharynx with no redness, swelling, or masses, exudates, or evidence of obstruction, uvula midline. Mucous membranes moist. Neck: Trachea midline, no thyromegaly or masses palpated, and no cervical lymphadenopathy. Supple, full range of motion without nuchal rigidity, or vertebral point tenderness. No Meningismus. Chest/axilla: Normal chest wall appearance and motion. Nontender with no deformity. No lesions are appreciated. Cardiovascular: Regular rate and rhythm with a normal S1 and S2. No gallops, murmurs, or rubs. Normal PMI, no JVD. No pulse deficits. Respiratory: Lungs have equal breath sounds bilaterally, clear to auscultation and percussion. No rales, rhonchi or wheezes noted. No increased work of breathing, no retractions or nasal flaring. Abdomen/GI: Soft, non-tender, with normal bowel sounds. No distension or tympany. No guarding or rebound. No evidence of tenderness throughout. Back: No spinal tenderness. No costovertebral tenderness. Skin: Warm, dry with normal turgor. Normal color with no rashes, no lesions, and no evidence of cellulitis. MS/ Extremity: Pulses equal, no cyanosis. Neurovascular intact. Full, normal range of motion. Neuro: Awake and alert, GCS 15, oriented to person, place, time, and situation. Cranial nerves II-XII grossly intact. Motor strength 5/5 in all extremities. Sensory grossly intact. Psych: Awake, alert, with orientation to person, place and time. Behavior, mood, and affect are within normal limits Vital Signs: 21:33 BP 130 / 82; Pulse 101; Resp 22; Temp 98.8(O); Pulse Ox 96% on R/A; Weight 93 kg (M); jb4 Capo Coma Score: 21:38 Eye Response: spontaneous(4). Motor Response: obeys commands(6). Verbal Response: jb4 oriented(5). Total: 15. MDM: 21:40 Patient medically screened. sp4 23:58 Differential diagnosis: drug overdose, cardiac arrhythmia, seizure, TIA. Data reviewed: sp4 vital signs, nurses notes, EMS record, old medical records, lab test result(s), radiologic studies, ultrasound. ED course: OB ultrasound revealed single viable intrauterine estimated gestational age 6 weeks 5 days, by crown-rump length, cardiac activity present, left ovary not visualized, no adnexal mass, no free fluid in the pelvis. Labs are basically unremarkable, patient was encouraged to stay in ER for additional treatment however she has walked out after she was given in formal discharge. At this time patient is informed discharge, she has no signs of distress on departure,. . ED course: There was no convulsive activity in the emergency department. 07/05 21:39 Order name: Acetaminophen; Complete Time: 23:44 sp4 07/05 21:39 Order name: Basic Metabolic Panel; Complete Time: 23:44 sp4 07/05 21:39 Order name: CBC with Diff; Complete Time: 23:44 sp4 07/05 21:39 Order name: ETOH Level; Complete Time: 23:44 sp4 07/05 21:39 Order name: Hepatic Function; Complete Time: 23:44 sp4 07/05 21:39 Order name: PT-INR; Complete Time: 23:44 sp4 07/05 21:39 Order name: Ptt, Activated; Complete Time: 23:44 sp4 07/05 21:39 Order name: Salicylate; Complete Time: 23:44 sp4 07/05 21:40 Order name: US OB Limited sp4 07/05 21:39 Order name: Labs collected and sent; Complete Time: 22:34 sp4 Administered Medications: No medications were administered Disposition Summary: 07/06/22 00:00 Discharge Ordered Location: Home sp4 Problem: new sp4 Symptoms: have improved sp4 Condition: Stable sp4 Diagnosis - Pseudoseizures, psychogenic seizures, at 6 weeks 5 days EGA, first sp4 trimester Followup: sp4 - With: Private Physician - When: 7 - 10 days - Reason: Recheck today's complaints Discharge Instructions: - Discharge Summary Sheet sp4 - First Trimester of sp4 Forms: - Thank You Letter sp4 Signatures: Dispatcher [employer] Theodore Butcher RN RN jb4 Pasha Espinal MD MD sp4 Corrections: (The following items were deleted from the chart) 22:34 21:39 Suicide Screening ([place]) ordered. sp4 jb4 23:46 21:39 IV Saline Lock ordered. sp4 jb4
[2022-07-06 00:44] VITALS: BP 130/82; TEMP 98.8; O2SAT 96
--- NOTE | 2022-07-07 12:47 | RAD REPORT ---
EXAM DESCRIPTION: US - OB Limited - 07/05/2022 10:43 pm CLINICAL HISTORY: 9 weeks EGA , eval for viabily ;Distention COMPARISON: None TECHNIQUE: The exam was performed via transabdominal approach. Result: UTERUS: The uterus measures 13.4 cm longitudinally. GESTATION: There is a single, intrauterine . The estimated gestational age based on the fe umberto pole crown-rump length is 6 weeks, 5 days. cardiac activity is detected at 151 beats per mi nute. OVARIES & ADNEXA: The right ovary measures 2.9 x 2.9 x 4.5 cm. The left ovary is not visualized. Righ t ovary demonstrates vascular flow. No suspicious adnexal masses are seen. PELVIS: There is no free fluid in the pelvis. IMPRESSION: Single, viable intrauterine , estimated gestational age of 6 weeks, 5 days by f etal pole crown-rump length. cardiac activity present. Left ovary not visualized. No adnexal ma sses. Electronically signed by: Mayo Rice MD 07/05/2022 11:09 PM CDT Due to temporary technical issues with the PACS/Fluency reporting system, reports are being signed by the in house radiologist without review as a courtesy to ensure prompt reporting. The interpreting r adiologist is fully responsible for the content of the report.
== END 2022-07-06 00:02 | disposition home or self-care (01) ==
LOC: ER 21:20
DX: O99.351 Diseases of the nervous system complicating pregnancy, first trimester (principal); R56.9 Unspecified convulsions; Z3A.01 Less than 8 weeks gestation of pregnancy; Z88.1 Allergy status to other antibiotic agents; Z88.5 Allergy status to narcotic agent; Z88.8 Allergy status to other drugs, medicaments and biological substances
CPT/HCPCS: 85025; 80048; 36415; 85610; 80076; 85730; 76815; 99283; G0480 ×3

== ENCOUNTER 2022-07-08 21:24 | Emergency (ER) | payer BC, OTHER ==
--- OUTSIDE RECORDS SUMMARY | 2022-07-08 21:41 | XMS REPORT | Continuity of Care Document ---
:1995 Author Organization [facility] t Address [address] [place] [address] Care Team Providers Name Role Phone Asked, No Pcp Primary Care Physician Unavailable JOANNE PARKINSON Attending Clinician Unavailable RADHA NOBLES Attending Clinician Unavailable Radha Nobles CNM Attending Clinician Irma Alma ORTIZ Attending Clinician [phone] Faculty, Reddy Fredeirck Mfjone Attending Clinician Unavailable Seth Kay MD Attending Clinician SETH KAY Attending Clinician Unavailable Malolry Carroll Attending Clinician ALMA SOLIS Attending Clinician Unavailable Doctor Unassigned, [place] Attending Clinician Unavailable KIARRA ARIZMENDI Attending Clinician Unavailable Kiarra Brewer Attending Clinician BRUCE FOFANA Attending Clinician Unavailable MAU RHOADES Attending Clinician Unavailable Nurse, Reddy [facility] Attending Clinician Unavailable Unknown, Attending Attending Clinician Unavailable Provider, Ember Kate Attending Clinician Unavailable COLT MICHAELS Attending Clinician Unavailable Dennys Lara MD Attending Clinician RAVEN GOLDSMITH Attending Clinician Unavailable Agus TAYLOR, Raven Attending Clinician CHIQUIS KATE Attending Clinician Unavailable CHIQUIS KATE Attending Clinician Unavailable Eladia Conklin MD Attending Clinician [phone] Chiquis Kate MD Attending Clinician Nory Jiménez DO Attending Clinician Martha Agarwal MD Attending Clinician KEVIN SINGH Attending Clinician Unavailable Risk, Aqp-Tchio-Wl/High Attending Clinician Unavailable Kevin Colbert Attending Clinician DENNYS LARA Attending Clinician Unavailable Areli Patel DO Attending Clinician AMY SHARMA Attending Clinician Unavailable Amy Jacob Attending Clinician Pob, Adc Lab Main Attending Clinician Unavailable Neal Reed MD Attending Clinician [phone] NEAL REED Attending Clinician Unavailable Trever Hernandez Attending Clinician LUKE FISH Attending Clinician Unavailable Luke Fish MD Attending Clinician ARELI PATEL Attending Clinician Unavailable Zamzam MCGOWAN, Vijaya Whelan Attending Clinician Unavailable Ultrasound, Ang-Mfm Attending Clinician Unavailable JoseZen turner DO Attending Clinician TREVER KATZ Attending Clinician Unavailable Anton Renteria MD Attending Clinician ANTON RENTERIA Attending Clinician Unavailable 1, Jre-Mfm Us Room Attending Clinician Unavailable Abena Gonzalez Attending Clinician ABENA PATEL Attending Clinician Unavailable Lab, Pea-Rmchp Attending Clinician Unavailable RICHARD ANDERSON Attending Clinician Unavailable RICHARD ANDERSON Attending Clinician Unavailable ANGELO KENNEY Attending Clinician Unavailable Angelo Kenney MD Attending Clinician LANDAVERDE, BERTHA S Attending Clinician Unavailable Tyra ROUSSEAU, Bertha S Attending Clinician Richard Anderson MD Attending Clinician ARMEN RODRIGUEZ Attending Clinician Unavailable Armen Rodriguez MD Attending Clinician Lab[facility] Attending Clinician Unavailable LILIANA SALINAS Attending Clinician Unavailable Liliana Stephenson Attending Clinician Guerrero TAYLOR, Lauryn Hemphill Attending Clinician LAURYN RAMÍREZ Attending Clinician Unavailable Mesfin Grant RN Attending Clinician Unavailable Mary Rios MD Attending Clinician MARY RIOS Attending Clinician Unavailable Only, Adc Test Attending Clinician Unavailable Cheo Galvin MD Attending Clinician Kwaku ROUSSEAU, Peace Bender Attending Clinician Wong Cade DO Attending Clinician Santosh Simon DO Attending Clinician Terence, [facility] Nurse Attending Clinician Unavailable Kevin Miramontes RN [...] Luke Fish MD Admitting Clinician TYRA, BERTHA Pickett Admitting Clinician Unavailable Mary Rios MD Admitting Clinician MIRELLA STANFORD Admitting Clinician Unavailable TISH NEVAREZ Admitting Clinician Unavailable LORY URBINA I Admitting Clinician Unavailable Payers Payer Name Policy Type Policy Number Effective Date Expiration Date Piyush sofia [facility] [id number] 2021 00:00:00 [facility] [id number] 2017 CHOICE [place] STAR 00:00:00 Problems Condition [...] 2021-03 Univers 2-27 it y of 00:00: [place] [facility] 37 weeks 37 weeks Disease Active 2021-03 Unive rs gestation gestation 2-05 ity of of of 00:00: [place] 00 [facility] Seizure Seizure Disease Active 2021-03 Univers 1-24 ity of 00:00: [place] [facility] Disease Active 2021-03 Uni vers with with 0-11 ity of adoption adoption 00:00: [place] planned planned 00 [facility] URI (upper URI (upper Disease Active U nivers respirator respirator 9-25 it y of y y 00:00: [place] infection) infection) 00 Az dical Branch 27 weeks 27 weeks Disease Active Unive rs gestation gestation 9-25 ity of of of 00:00: [place] 00 [facility] Round Round Disease Active Univers ligament ligament 9-25 ity of pain pain 00:00: [place] 00 [facility] Branch BMI BMI Disease Active Univers 35.0-35.9, 35.0-35.9, 9-23 it y of adult adult 00:00: [place] 00 [facility] Elevated Elevated Disease Active Unive rs blood blood 8-09 ity of pressure pressure 00:00: [place] reading reading 00 Medical without without Branch [...] of high-risk high[place] [facility] Branch History of History of Disease Active Overview : Univers anxiety anxiety 05 Formattin ity o f 00:00: g of this [place] 00 note Medical might be Branch different from the original. Reports on buspirone Multiparit Multiparit Disease Active U nivers y y 07-11 ity of 00:00: [place] [facility] Obesity in Obesity in Disease Active U nivers 07-11 ity of 00:00: [place] [facility] Depression Depression Disease Active Overview : Univers affecting affecting 07-11 Formattin i ty of , , 00:00: g of this [place] antepartum antepartum 00 note Me dical might be Branch different from the original. Reports on buspirone Frequent Frequent Disease Active Unive rs UTI UTI 8 ity of 00:00: [place] [facility] Seizure Seizure Disease Active Overview: Univ ers disorder disorder - Formattin ity of in in 00:00: g of this [place] 00 note [facility] might be Branch different from the original. Last episode 2 months ago , not on meds Abdominal Abdominal Disease [facility] Abnormal Abnormal Disease [facility] Center UTI UTI Disease Active Univers symptoms symptoms 4-01 ity of 00:00: [place] [facility] Abnormal Abnormal Disease Active Unive rs EKG EKG 8-02 ity of 00:00: [place] [address] Medical Branch Anxiety Anxiety Disease Active Univers [...] f during during 00:00: g of this [place] 00 note Medi tressa might be Branch [...] St DE 7[facility]16 [facility] 00:00: Medical 00 [facility] NITROFUR Allergy Active Med Anxiety 2020-[address] [facility] [address] ANTOIN 7-16 [facility] MONOHYD/ 00:00: Medical M-CRYST 00 [facility] Doxycycl Drug Active Hives, Rash 2019-[address] ine Allergy 2-12 [facility] 00 Center Tramadol Drug Active Other (See 2020-[address] Allergy Comments) 2-12 [facility] 00:[facility]: Medical 00 [facility] Doxycycl Propensi Active Other - See 2020-0 seizures Univers ine ty to comments 2-12 ity of adverse 00:00: [place] reaction 00 [facility] Tramadol Propensi Active Other - See 2020-0 seizures Univers ty to comments 2-12 ity of adverse 00:00: [place] reaction 00 [facility] DOXYCYCL DRUG Active Other-Cmnt 2020-0 Univ ers INE INGREDI 2-12 ity of 00:00: [place] 00 [facility] TRAMADOL DRUG Active Other-Cmnt 2020-0 Univ ers INGREDI 2-12 ity of 00:00: [place] 00 [facility] DOXYCYCL Allergy Active High Hives 2019-[address] [facility] INE 2-12 [facility] 00:00: Medical 00 [facility] TRAMADOL Allergy Active Other 2020-[address] 2[facility]12 [facility] 00:00: Medical 00 [facility] Social History Social Habit Start Date Stop Date Quantity Comments Source ASSERTION 2022-05-17 University of 00:00:00 [facility] History SDOH [facility] Alcohol Comment Medical C enter History SDOH [facility] Alcohol Std Drinks Medica l Center History SDOH [facility] Alcohol Binge Medical [address] Gender identity [facility] Sexual orientation [facility] Exposure to 2022-06-28 2022-07-08 Not sure University of SARS-CoV-2 (event) 00:00:00 15:11:00 [facility] Tobacco use and 2021-10-07 2021-10-07 Smokeless Universit y of exposure 00:00:00 00:00:00 tobacco non-user [facility] Alcohol intake 2020-09-24 2020-09-24 Ex-drinker [facility] 00:00:00 00:00:00 (finding) Medical Center History SDOH 2020-09-22 2020-09-22 1 AMANDA Diallo Alcohol Frequency 00:00:00 00:00:00 [facility] Center Sex Assigned At [birth year] AMANDA [place] 00:00:00 00:00:00 Medical Center Smoking Status Start Date Stop Date Source Never smoked tobacco [facility] Medications Ordered Filled Start Stop Current Ordering Indication Dosage Frequency Signature Comments Components Source Medication Medication Date Date Medication? Clinician (SIG) Name Name proMETHazin Yes [id number] 25mg Take 1 Univers e 25 mg 4-19 tablet by ity of tablet 00:00: mouth [place] 00 every 6 Medical (six) Branch hours as needed for Nausea and Vomiting (N/V). proMETHazin Yes [id number] 25mg Take 1 Univers e 25 mg 4-19 tablet by ity of tablet 00:00: mouth [place] 00 every 6 Medical (six) Branch hours as needed for Nausea and Vomiting (N/V). proMETHazin Yes [id number] 25mg Take 1 Univers e 25 mg 4-19 tablet by ity of tablet 00:00: mouth [place] 00 every 6 Medical (six) Branch hours as needed for Nausea and Vomiting (N/V). foLIC acid 2022- Yes [id number] 4mg Take 4 Univers 1 mg tablet 4-17 10-15 tablets by i ty of 00:00: 04:59 mouth in [place] 00 :00 the Medical morning Branch for 180 days. foLIC acid 2022- Yes [id number] 4mg Take 4 Univers 1 mg tablet 4-17 10-15 tablets by i ty of 00:00: 04:59 mouth in [place] 00 :00 the Medical morning Branch for 180 days. foLIC acid 2022- Yes [id number] 4mg Take 4 Univers 1 mg tablet 4-17 10-15 tablets by i ty of 00:00: 04:59 mouth in [place] 00 :00 the Medical morning Branch for 180 days. foLIC acid 2022- Yes [id number] 4mg Take 4 Univers 1 mg tablet 4-17 10-15 tablets by i ty of 00:00: 04:59 mouth in [place] 00 :00 the Medical morning Branch for 180 days. Yes [id number] 1{tbl} Take 1 U nivers multivitami 4-11 tablet by ity of n ( 00:00: mouth in [place] VITAMIN[place] 00 the Medical tablet morning. Branch Yes [id number] 1{tbl} Take 1 U nivers multivitami 4-11 tablet by ity of n ( 00:00: mouth in [place] VITAMIN[place] 00 the Medical tablet morning. Branch Yes [id number] 1{tbl} Take 1 U nivers multivitami 4-11 tablet by ity of n ( 00:00: mouth in [place] VITAMIN[place] 00 the Medical tablet morning. Branch Yes [id number] 1{tbl} Take 1 U nivers multivitami 4-11 tablet by ity of n ( 00:00: mouth in [place] VITAMIN) 00 the Medical tablet morning. Branch Yes [id number] 1{tbl} Take 1 U nivers multivitami 4-11 tablet by ity of n ( 00:00: mouth in [place] VITAMIN[place] 00 the Medical tablet morning. Branch Yes [id number] 1{tbl} Take 1 U nivers multivitami 4-11 tablet by ity of n ( 00:00: mouth in [place] VITAMIN) 00 the Medical tablet morning. Branch Yes [id number] 1{tbl} Take 1 U nivers multivitami 4-11 tablet by ity of n ( 00:00: mouth in [place] VITAMIN[place] 00 the Medical tablet morning. Branch Yes [id number] 1{tbl} Take 1 U nivers multivitami 4-11 tablet by ity of n ( 00:00: mouth in [place] VITAMIN[place] 00 the Medical tablet morning. Branch Yes [id number] 1{tbl} Take 1 U nivers multivitami 4-11 tablet by ity of n ( 00:00: mouth in [place] VITAMIN[place] 00 the Medical tablet morning. [place] Yes [id number] 1{tbl} Take 1 U nivers multivitami 4-11 tablet by ity of n ( 00:00: mouth in [place] VITAMIN[place] 00 the Medical tablet morning. Branch gabapentin 2023-0 Yes TAKE 1 Unive rs 300 mg 3-15 CAPSULE BY ity of capsule 00:00: MOUTH ONCE [place] DAILY Medical NEEDED FOR Branch PANIC ATTACKS DULoxetine 2023-0 Yes 60mg Take 1 Unive rs 60 mg 3-15 capsule by ity of capsule 00:00: mouth in [place] 00 the Medical morning. Branch gabapentin 2023-0 Yes TAKE 1 Unive rs 300 mg 3-15 CAPSULE BY ity of capsule 00:00: MOUTH ONCE [place] 00 DAILY Medical NEEDED FOR Branch PANIC ATTACKS DULoxetine 3-0 Yes 60mg Take 1 Unive rs 60 mg 3-15 capsule by ity of capsule 00:00: mouth in [place] 00 the Medical morning. Branch gabapentin 3-0 Yes TAKE 1 Unive rs 300 mg 3-15 CAPSULE BY ity of capsule 00:00: MOUTH ONCE [place] 00 DAILY Medical NEEDED FOR Branch PANIC ATTACKS DULoxetine 3-0 Yes 60mg Take 1 Unive rs 60 mg 3-15 capsule by ity of capsule 00:00: mouth in [place] 00 the Medical morning. Branch gabapentin 3-0 Yes TAKE 1 Unive rs 300 mg 3-15 CAPSULE BY ity of capsule 00:00: MOUTH ONCE [place] 00 DAILY Medical NEEDED FOR Branch PANIC ATTACKS DULoxetine 3-0 Yes 60mg Take 1 Unive rs 60 mg 3-15 capsule by ity of capsule 00:00: mouth in [place] 00 the Medical morning. Branch gabapentin 2023-0 Yes TAKE 1 Unive rs 300 mg 3-15 CAPSULE BY ity of capsule 00:00: MOUTH ONCE [place] 00 DAILY Medical NEEDED FOR Branch PANIC ATTACKS DULoxetine 2023-0 Yes 60mg Take 1 Unive rs 60 mg 3-15 capsule by ity of capsule 00:00: mouth in [place] 00 the Medical morning. Branch gabapentin 2023-0 Yes TAKE 1 Unive rs 300 mg 3-15 CAPSULE BY ity of capsule 00:00: MOUTH ONCE [place] 00 DAILY Medical NEEDED FOR Branch PANIC ATTACKS DULoxetine 2023-0 Yes 60mg Take 1 Unive rs 60 mg 3-15 capsule by ity of capsule 00:00: mouth in [place] 00 the Medical morning. Branch gabapentin 2023-0 Yes TAKE 1 Unive rs 300 mg 3-15 CAPSULE BY ity of capsule 00:00: MOUTH ONCE [place] 00 DAILY Medical NEEDED FOR Branch PANIC ATTACKS DULoxetine 2023-0 Yes 60mg Take 1 Unive rs 60 mg 3-15 capsule by ity of capsule 00:00: mouth in [place] 00 the Medical morning. Branch gabapentin 3-0 Yes TAKE 1 Unive rs 300 mg 3-15 CAPSULE BY ity of capsule 00:00: MOUTH ONCE [place] 00 DAILY Medical NEEDED FOR Branch PANIC ATTACKS DULoxetine 2023-0 Yes 60mg Take 1 Unive rs 60 mg 3-15 capsule by ity of capsule 00:00: mouth in [place] 00 the Medical morning. Branch gabapentin 3-0 Yes TAKE 1 Unive rs 300 mg 3-15 CAPSULE BY ity of capsule 00:00: MOUTH ONCE [place] 00 DAILY Medical NEEDED FOR Branch PANIC ATTACKS DULoxetine 3-0 Yes 60mg Take 1 Unive rs 60 mg 3-15 capsule by ity of capsule 00:00: mouth in [place] the Medical morning. Branch gabapentin 3-0 Yes TAKE 1 Unive rs 300 mg 3-15 CAPSULE BY ity of capsule 00:00: MOUTH ONCE [place] 00 DAILY Medical NEEDED FOR Branch PANIC ATTACKS DULoxetine 3-0 Yes 60mg Take 1 Unive rs 60 mg 3-15 capsule by ity of capsule 00:00: mouth in [place] the Medical morning. Branch dexmethylph 2023-0 Yes TAKE 1 Univ ers enidate 20 3-14 CAPSULE BY ity of mg 24 hr 00:00: MOUTH [place] capsule 00 EVERY DAY Medical IN THE [place] MORNING FOR 30 DAYS dexmethylph 2023-0 Yes TAKE 1 Univ ers enidate 20 3-14 CAPSULE BY ity of mg 24 hr 00:00: MOUTH [place] capsule 00 EVERY DAY Medical IN THE [place] MORNING FOR 30 DAYS dexmethylph 2023-0 Yes TAKE 1 Univ ers enidate 20 3-14 CAPSULE BY ity of mg 24 hr 00:00: MOUTH [place] capsule 00 EVERY DAY Medical IN THE [place] MORNING FOR 30 DAYS dexmethylph 2023-0 Yes TAKE 1 Univ ers enidate 20 3-14 CAPSULE BY ity of mg 24 hr 00:00: MOUTH [place] capsule 00 EVERY DAY Medical IN THE [place] MORNING FOR 30 DAYS dexmethylph 2023-0 Yes TAKE 1 Univ ers enidate 20 3-14 CAPSULE BY ity of mg 24 hr 00:00: MOUTH [place] capsule 00 EVERY DAY Medical IN THE [place] MORNING FOR 30 DAYS dexmethylph Yes TAKE 1 Univ ers enidate 20 3-14 CAPSULE BY ity of mg 24 hr 00:00: MOUTH [place] capsule 00 EVERY DAY Medical IN THE [place] MORNING FOR 30 DAYS dexmethylph 0 Yes TAKE 1 Univ ers enidate 20 3-14 CAPSULE BY ity of mg 24 hr 00:00: MOUTH [place] capsule 00 EVERY DAY Medical IN THE [place] MORNING FOR 30 DAYS dexmethylph 0 Yes TAKE 1 Univ ers enidate 20 3-14 CAPSULE BY ity of mg 24 hr 00:00: MOUTH [place] capsule 00 EVERY DAY Medical IN THE [place] MORNING FOR 30 DAYS dexmethylph 0 Yes TAKE 1 Univ ers enidate 20 3-14 CAPSULE BY ity of mg 24 hr 00:00: MOUTH [place] capsule 00 EVERY DAY Medical IN THE [place] MORNING FOR 30 DAYS dexmethylph 0 Yes TAKE 1 Univ ers enidate 20 3-14 CAPSULE BY ity of mg 24 hr 00:00: MOUTH [place] capsule 00 EVERY DAY Medical IN THE [place] MORNING FOR 30 DAYS ketorolac 2021-03- No 30mg 30 mg, Unive rs (TORADOL) 04-20 Slow IV ity of injection 00:15: 23:30 Push, [place] 30 mg 00 :00 ONCE, 1 Medical dose, On [facility] 02/16/22 at 1815, SHAYNA FENTanyl PF 2021-03- No 75ug 75 mcg, Un aubree (SUBLIMAZE 04-19 Slow IV ity o f (PF)) 23:15: 22:46 [place], [place] injection 00 :00 ONCE, 1 Medical 75 mcg dose, On [facility] 02/16/22 at 1715, STAT iopamidol 2021-03- No [id number] 74mL 74 mL, U nivers (ISOVUE 04-19- Intravenou ity o f 370-500 mL) 21:00: 21:15 s, ONCE, 1 [place] injection 00 :00 dose, On Medica l 74 mL [facility] 02/16/22 at 1515, Routine metoclopram 2021-03 Yes [id number] 10mg Take 1 Univers arabella HCl 10 2-11 tablet by ity of mg tablet 00:00: mouth [place] 00 every 6 Medical (six) [place] hours. metoclopram 2021- Yes [id number] 10mg Take 1 Univers arabella HCl 10 2-11 tablet by ity of mg tablet 00:00: mouth [place] 00 every 6 Medical (six) Branch hours. metoclopram 2021- Yes [id number] 10mg Take 1 Univers arabella HCl 10 2-11 tablet by ity of mg tablet 00:00: mouth [place] 00 every 6 Medical (six) Branch hours. metoclopram 2021- Yes [id number] 10mg Take 1 Univers arabella HCl 10 2-11 tablet by ity of mg tablet 00:00: mouth [place] 00 every 6 Medical (six) Branch hours. metoclopram 2021- Yes [id number] 10mg Take 1 Univers arabella HCl 10 2-11 tablet by ity of mg tablet 00:00: mouth [place] 00 every 6 Medical (six) Branch hours. metoclopram 2021-03 Yes [id number] 10mg Take 1 Univers arabella HCl 10 2-11 tablet by ity of mg tablet 00:00: mouth [place] 00 every 6 Medical (six) Branch hours. metoclopram 2021-03 Yes [id number] 10mg Take 1 Univers arabella HCl 10 2-11 tablet by ity of mg tablet 00:00: mouth [place] 00 every 6 Medical (six) Branch hours. metoclopram 2021-03 Yes [id number] 10mg Take 1 Univers arabella HCl 10 2-11 tablet by ity of mg tablet 00:00: mouth [place] 00 every 6 Medical (six) Branch hours. metoclopram 2021-03- No [id number] 10mg Take 1 Univers arabella HCl 10 2-11 04-11 tablet by ity of mg tablet 00:00: 00:00 mouth [place] 00 :00 every 6 Medical (six) Branch hours. foLIC acid 2021-03 Yes 1mg 1 mg, Univer s (FOLATE) 2-07 Oral, ity of tablet 1 mg 15:00: DAILY, [place] 00 First dose Medical on Thu02/12/22 at 0900, Until Discontinu ed, Routine ferrous 2021-03 Yes 325mg 325 mg, Univer s sulfate 2-07 Oral, Q ity of tablet 325 15:00: [place]DAY, [place] mg 00 First dose Medical on Thu02/12/22 at 0900, Until Discontinu ed, Routine docusate 2021-03 Yes [id number] 200mg Take 2 U nivers 100 mg 2-07 capsules ity of capsule 00:00: by mouth [place] 00 once daily Medical as needed Branch for Constipati on. ferrous 2021-03 Yes [id number] 325mg Take 1 Un aubree sulfate 325 2-07 tablet by ity of mg (65 mg 00:00: mouth [place] iron) 00 every Medical tablet other day. Branch ibuprofen 2021-03 Yes [id number] 600mg Take 1 Univers 600 mg 2-07 tablet by ity of tablet 00:00: mouth [place] 00 every 6 Medical (six) Branch hours as needed (Pain). Take with food or milk. polyethylen 2021-03 Yes 17g 17 g, Unive rs e glycol 2-07 Oral, ity of 3350 powder 00:00: DAILY, [place] 17 g 00 First dose Medical on [facility] Branch 02/11/22 at 1800, Until Discontinu ed, Routine docusate 2021-03 Yes [id number] 200mg Take 2 U nivers 100 mg 2-07 capsules ity of capsule 00:00: by mouth [place] 00 once daily Medical as needed Branch for Constipati on. ferrous 2021-03 Yes [id number] 325mg Take 1 Un aubree sulfate 325 2-07 tablet by ity of mg (65 mg 00:00: mouth [place] iron) 00 every Medical tablet other day. Branch ibuprofen 2021-03 Yes [id number] 600mg Take 1 Univers 600 mg 2-07 tablet by ity of tablet 00:00: mouth [place] 00 every 6 Medical (six) Branch hours as needed (Pain). Take with food or milk. docusate 2021-03 Yes [id number] 200mg Take 2 U nivers 100 mg 2-07 capsules ity of capsule 00:00: by mouth [place] 00 once daily Medical as needed Branch for Constipati on. ferrous 2021-03 Yes [id number] 325mg Take 1 Un aubree sulfate 325 2-07 tablet by ity of mg (65 mg 00:00: mouth [place] iron) 00 every Medical tablet other day. Branch ibuprofen 2021-03 Yes [id number] 600mg Take 1 Univers 600 mg 2-07 tablet by ity of tablet 00:00: mouth [place] 00 every 6 Medical (six) Branch hours as needed (Pain). Take with food or milk. docusate 2021-03 Yes [id number] 200mg Take 2 U nivers 100 mg 2-07 capsules ity of capsule 00:00: by mouth [place] 00 once daily Medical as needed Branch for Constipati on. ferrous 2021-03 Yes [id number] 325mg Take 1 Un [place] sulfate 325 2-07 tablet by ity of mg (65 mg 00:00: mouth [place] iron) 00 every Medical tablet other day. Branch ibuprofen 2021-03 Yes [id number] 600mg Take 1 Univers 600 mg 2-07 tablet by ity of tablet 00:00: mouth [place] 00 every 6 Medical (six) Branch hours as needed (Pain). Take with food or milk. docusate 2021-03 Yes [id number] 200mg Take 2 U nivers 100 mg 2-07 capsules ity of capsule 00:00: by mouth [place] 00 once daily Medical as needed Branch for Constipati on. ferrous 2021-03 Yes [id number] 325mg Take 1 Un [place]ubree sulfate 325 2-07 tablet by ity of mg (65 mg 00:00: mouth [place] iron) 00 every Medical tablet other day. Branch ibuprofen 2021-03 Yes [id number] 600mg Take 1 Univers 600 mg 2-07 tablet by ity of tablet 00:00: mouth [place] 00 every 6 Medical (six) Branch hours as needed (Pain). Take with food or milk. docusate 2021-03 Yes [id number] 200mg Take 2 U nivers 100 mg 2-07 capsules ity of capsule 00:00: by mouth [place] 00 once daily Medical as needed Branch for Constipati on. ferrous 2021-03 Yes [id number] 325mg Take 1 Un [place] sulfate 325 2-07 tablet by ity of mg (65 mg 00:00: mouth [place] iron) 00 every Medical tablet other day. Branch ibuprofen 2021-03 Yes [id number] 600mg Take 1 Univers 600 mg 2-07 tablet by ity of tablet 00:00: mouth [place] 00 every 6 Medical (six) Branch hours as needed (Pain). Take with food or milk. docusate 2021-03 Yes [id number] 200mg Take 2 U nivers 100 mg 2-07 capsules ity of capsule 00:00: by mouth [place] 00 once daily Medical as needed Branch for Constipati on. ferrous 2021-03 Yes [id number] 325mg Take 1 Un [place] sulfate 325 2-07 tablet by ity of mg (65 mg 00:00: mouth [place] iron) 00 every Medical tablet other day. Branch ibuprofen 2021-03 Yes [id number] 600mg Take 1 Univers 600 mg 2-07 tablet by ity of tablet 00:00: mouth [place] 00 every 6 Medical (six) Branch hours as needed (Pain). Take with food or milk. docusate 2021-03 Yes [id number] 200mg Take 2 U nivers 100 mg 2-07 capsules ity of capsule 00:00: by mouth [place] 00 once daily Medical as needed Branch for Constipati on. ferrous 2021-03 Yes [id number] 325mg Take 1 Un [place]ubree sulfate 325 2-07 tablet by ity of mg (65 mg 00:00: mouth [place] iron) 00 every Medical tablet other day. Branch ibuprofen 2021-03 Yes [id number] 600mg Take 1 Univers 600 mg 2-07 tablet by ity of tablet 00:00: mouth [place] 00 every 6 Medical (six) Branch hours as needed (Pain). Take with food or milk. docusate 2021-03 Yes [id number] 200mg Take 2 U nivers 100 mg 2-07 capsules ity of capsule 00:00: by mouth [place] 00 once daily Medical as needed Branch for Constipati on. ferrous 2021-03 Yes [id number] 325mg Take 1 Un [place] sulfate 325 2-07 tablet by ity of mg (65 mg 00:00: mouth [place] iron) 00 every Medical tablet other day. Branch ibuprofen 2021-03 Yes [id number] 600mg Take 1 Univers 600 mg 2-07 tablet by ity of tablet 00:00: mouth [place] 00 every 6 Medical (six) Branch hours as needed (Pain). Take with food or milk. docusate 2021-03 Yes [id number] 200mg Take 2 U nivers 100 mg 2-07 capsules ity of capsule 00:00: by mouth [place] 00 once daily Medical as needed Branch for Constipati on. ferrous 2021-03 Yes [id number] 325mg Take 1 Un [place] sulfate 325 2-07 tablet by ity of mg (65 mg 00:00: mouth [place] iron) 00 every Medical tablet other day. Branch ibuprofen 2021-03 Yes [id number] 600mg Take 1 [facility] 600 mg 2-07 tablet by ity of tablet 00:00: mouth [place] 00 every 6 Medical (six) Branch hours as needed (Pain). Take with food or milk. docusate 2021-03- No [id number] 200mg Take 2 [facility] 100 mg 04-15 capsules ity of capsule 00:00: 00:00 by mouth [place] 00 :00 once daily Medical as needed Branch for Constipati on. ferrous 2021-03- No [id number] 325mg Take 1 U nivers sulfate 325 04-15 tablet by it y of mg (65 mg 00:00: 00:00 mouth [place] iron) 00 :00 every Medical tablet other day. Branch ibuprofen 2021-03- No [id number] 600mg Take 1 [facility] 600 mg 04-15 tablet by ity of tablet 00:00: 00:00 mouth [place] 00 :00 every 6 Medical (six) Branch hours as needed (Pain). Take with food or milk. foLIC acid 2021-03- No [id number] 1mg Take 1 [facility] 1 mg tablet 04-15 tablet by it y of 00:00: 05:59 mouth in [place] 00 :00 the Medical morning Branch for 90 days. foLIC acid 2021-03- No [id number] 1mg Take 1 [facility] 1 mg tablet 04-15- tablet by it y of 00:00: 05:59 mouth in [place] 00 :00 the Medical morning Branch for 90 days. foLIC acid 2021-03- No [id number] 1mg Take 1 [facility] 1 mg tablet 04-15- tablet by it y of 00:00: 05:59 mouth in [place] 00 :00 the Medical morning Branch for 90 days. foLIC acid 2021-03- No [id number] 1mg Take 1 [facility] 1 mg tablet 04-15- tablet by it y of 00:00: 05:59 mouth in [place] 00 :00 the Medical morning Branch for 90 days. foLIC acid 2021-03- No [id number] 1mg Take 1 [facility] 1 mg tablet 04-15-08 tablet by it y of 00:00: 05:59 mouth in [place] 00 :00 the Medical morning Branch for 90 days. foLIC acid 2021-03- No [id number] 1mg Take 1 [facility] 1 mg tablet 04-15-08 tablet by it y of 00:00: 05:59 mouth in [place] 00 :00 the Medical morning Branch for 90 days. foLIC acid 2021-03- No [id number] 1mg Take 1 [facility] 1 mg tablet 04-15- tablet by it y of 00:00: 05:59 mouth in [place] 00 :00 the [facility] for 90 days. foLIC acid 2021-03- No [id number] 1mg Take 1 [facility] 1 mg tablet 04-15- tablet by it y of 00:00: 05:59 mouth in [place] 00 :00 the [facility] for 90 days. foLIC acid 2021-03- No [id number] 1mg Take 1 Univers 1 mg tablet 04-15 tablet by it y of 00:00: 05:59 mouth in [place] 00 :00 the [facility] for 90 days. ibuprofen 2021-03 Yes 600mg 600 mg, Univ ers (IBU) 2-06 Oral, ity of tablet 600 19:22: Q6HPRN, [place] mg 45 Starting Medical on [facility] 02/11/22 at 1322, Until Discontinu ed, Routine, Pain (scale 4-6) acetaminoph 2021-03 Yes 650mg 650 mg, [place] en 2-06 Oral, ity of (TYLENOL) 19:22: Q6HPRN, [place] tablet 650 45 Starting Medic al mg on 02/11/22 at 1322, Until Discontinu ed, Routine, Pain (scale 1-3) diphenhydrA 2021-03 Yes 25mg 25 mg, Univ ers MINE 2-06 Oral, ity of (BENADRYL) 19:22: Q6HPRN, [place] tablet 25 45 Starting Medica l mg on 02/11/22 at 1322, Until Discontinu ed, Routine, Sleep, Itching ondansetron 2021-03 Yes 4mg 4 mg, Slow Univers (ZOFRAN 2-06 IV Push, ity of (PF)) 19:22: Q8HPRN, [place] injection 4 45 Starting Medi tressa mg on [facility] 02/11/22 at 1322, Until Discontinu ed, Routine, Nausea and Vomiting (N/V) simethicone 2021-03 Yes 160mg 160 mg, Un [place] (GAS RELIEF 2-06 Oral, ity of (SIMETHICON 19:22: PC+HSPRN, [place] E)) 45 Starting Medical chewable on Thu [facility] tablet 160 02/11/22 at mg 1322, Until Discontinu ed, Routine, Gas docusate 2021-03 Yes 200mg 200 mg, Unive rs (COLACE) 2-06 Oral, ity of capsule 200 19:22: QDAILYPRN, [place] mg 45 Starting Medical on Branch 02/11/22 at 1322, Until Discontinu ed, Routine, Constipati on magnesium 2021-03 Yes 30mL 30 mL, Univer s hydroxide 2-06 Oral, ity of (MILK OF 19:22: QDAILYPRN, [place] as MAGNESIA) 45 Starting Medica l 400 mg/5 mL on Thu suspension 02/11/22 at 30 mL 1322, Until Discontinu ed, Routine, Constipati on benzocaine- 2021-03 Yes Topical, [place] menthol 2- PRN, ity of (DERMOPLAST 19:22: Starting [place] 20-0.5 % 44 on Thu Medical topical 02/11/22 at Branch spray 1322, Until Discontinu ed, Routine, Perineum discomfort oxytocin 2021-03- No 300mL/h 300 mL/hr, Univers (PITOCIN) 04-14 12-06 IV ity of 30 units in 16:59: 19:22 Infusion, [place] NS 500 mL 29 :49 SEE-INSTRU Medi tressa IV infusion CTIONS, Branc h Starting on Thu02/11/[address] at 300 mL/hr for 1 hr then 150 mL/hr for 1 hr. & nbsp; For post delivery uterotonic
PIB 2021-03- No Epidural, Univers ropivacaine 04-14 12-06 CONTINUOUS i ty of 0.2 % 16:30: 18:20 PRN, [place] (NAROPIN 00 :56 Starting Medical (PF)) on Thu [facility] epidural 02/11/22 at infusion 1030, Until Thu02/11/22 at 1220, Routine, Intra-op bupivacaine 2021-03- No Caudal Uni vers (preserv 04-14 Block, ity of free) 15:33: 18:20 ONCE INTRA [place] (SENSORCAIN 00 :56 PROCEDURE, Me dical E MPF) 0.25 Starting Bran ch % (2.5 on Tue mg/mL) 02/11/22 at injection 0933, Until 02/11/22 at 1220, Routine, Intra-op lamoTRIgine 2021-03 Yes [...] CONTINUOUS ity of (NAROPIN 06:45: 18:20 PRN, [place] (PF)) 00 :56 Starting Medical epidural on Thu Branch infusion 02/11/22 at 0045, Until Discontinu ed, Routine, Intra-op lactated 2021-03 No 500mL at 999 Unive rs ringers IV 04-14 mL/hr, 500 it y of infusion 06:45: 06:16 mL, IV [place] 500 mL 00 :00 Infusion, Medical ONCE, 1 Branch dose, On 02/11/22 at 0045, Routine lidocaine-e 2021-03 No Intraderma Univers pinephrine 04-14 l, ONCE ity [...] Branch mg/5 mL Starting solution 30 on [facility] 02/10/22 at 2355, Until Thu02/11/22 at 0016, Routine, Surgery/Pr ocedure lamoTRIgine 2021-03 Yes 100mg 100 mg, Un [place] (LAMICTAL) 2-06 Oral, QHS, ity of tablet 100 03:00: First dose [place] mg 00 on [facility] 02/10/22 at Branch 2100, Until Discontinu ed, Routine proMETHazin 2021-03- No 25mg 25 mg, IV Univers e 04-14 Piggyback, ity of (PHENERGAN) 00:45: 00:59 at 200 [place] 25 mg in [place] 00 :00 mL/hr Medical 50 mL IV Administer Branc h piggyback over 15 (CNR) Minutes, ONCE, 1 dose, On [facility] 02/10/22 at 1845, Routine butorphanol 2021-03- No 1mg 1 mg, Univ ers (STADOL) 04-14 Intravenou ity of injection 1 00:45: 00:09 s, ONCE, 1 [place] mg 00 :00 dose, On [facility] 02/10/22 at 1845, Routine oxytocin 2021-03- No 2mU/min at 2-40 Un [place] (PITOCIN) 04-14 mL/hr, IV ity of 30 units in 00:02: 19:22 Infusion, [place] NS 500 mL 47 :49 TITRATE, Medica l IV infusion Starting Bran ch on Thu02/10/22 at 1802, Until Thu02/11/22 at 1322, SHAYNA [id number] IV 2021-03- No 1000mL at 1-125 U nivers infusion 04-13-06 mL/hr, IV ity o f 1,000 mL 22:58: 19:22 Infusion, [place] 45 :49 TITRATE, Medical Starting Branch on Thu02/10/22 at 1658, Until Thu02/11/22 at 1322, Routine lamoTRIgine 2021-03- No 100mg Take 100 Univers 100 mg 2-05 12-05 mg by ity of tablet 17:04: 00:00 mouth at [place] 29 :[address] lamoTRIgine 2021-03 100mg Take 100 [facility] 100 mg 2-05 12-05 mg by ity of tablet 17:04: 00:00 mouth at [place] 29 :[address] 2021-03 Yes 1{tbl} 1 tablet, [place] vitamin 1-25 Oral, ity of w/FA tablet 15:00: DAILY, [place] 1 tablet 00 First dose Medic al on Thu01/31/22 at 0900, Until Discontinu ed, Routine magnesium 2021-03 No 2g 2 g, IV Univ ers [...] Medical Infusion, Branch ONCE, 1 dose, On [facility] 01/30/22 at 1645, SHAYNA magnesium 2021-03 No 2g 2 g, IV Univ ers [...] 18:07: mouth at [place] tablet [address] lamoTRIgine 2021-03 Yes 100mg Take 100 U nivers (LAMICTAL) 1-24 mg by ity of 100 mg 18:07: mouth at [place] tablet [address] lamoTRIgine 2021-03 Yes 100mg Take 100 U nivers (LAMICTAL) 1-24 mg by ity of 100 mg 18:07: mouth at [place] tablet 27 bedtime. Medical 25 [facility] Branch lamoTRIgine 2021-03 Yes 100mg Take 100 U nivers (LAMICTAL) 1-24 mg by ity of 100 mg 18:07: mouth at [place] tablet 27 bedtime. Medical 25 [facility] Branch lamoTRIgine 2021-03 Yes 100mg Take 100 U nivers (LAMICTAL) 1-24 mg by ity of 100 mg 18:07: mouth at [place] tablet 27 bedtime. [facility] 25 [facility] Branch proMETHazin 2021-03 Yes [id number] 25mg Take 1 Univers e 25 mg 1-15 tablet by ity of tablet 00:00: mouth [place] 00 every 4 Medical (four) Branch hours as needed for Nausea and Vomiting (N/V). proMETHazin 2021-03 Yes [id number] 25mg Take 1 Univers e 25 mg 1-15 tablet by ity of tablet 00:00: mouth [place] 00 every 4 Medical (four) Branch hours as needed for Nausea and Vomiting (N/V). proMETHazin 2021-03 Yes [id number] 25mg Take 1 Univers e 25 mg 1-15 tablet by ity of tablet 00:00: mouth [place] 00 every 4 Medical (four) Branch hours as needed for Nausea and Vomiting (N/V). proMETHazin 2021-03 Yes [id number] 25mg Take 1 Univers e 25 mg 1-15 tablet by ity of tablet 00:00: mouth [place] 00 every 4 Medical (four) Branch hours as needed for Nausea and Vomiting (N/V). proMETHazin 2021-03 Yes [id number] 25mg Take 1 Univers e 25 mg 1-15 tablet by ity of tablet 00:00: mouth [place] 00 every 4 Medical (four) Branch hours as needed for Nausea and Vomiting (N/V). proMETHazin 2021-03 Yes [id number] 25mg Take 1 Univers e 25 mg 1-15 tablet by ity of tablet 00:00: mouth [place] 00 every 4 Medical (four) Branch hours as needed for Nausea and Vomiting (N/V). proMETHazin 2021-03 Yes [id number] 25mg Take 1 Univers e 25 mg 1-15 tablet by ity of tablet 00:00: mouth [place] 00 every 4 Medical (four) Branch hours as needed for Nausea and Vomiting (N/V). proMETHazin 2021-03 Yes [id number] 25mg Take 1 Univers e 25 mg 1-15 tablet by ity of tablet 00:00: mouth [place] 00 every 4 Medical (four) Branch hours as needed for Nausea and Vomiting (N/V). proMETHazin 2021-03 Yes [id number] 25mg Take 1 Univers e 25 mg 1-15 tablet by ity of tablet 00:00: mouth [place] 00 every 4 Medical (four) Branch hours as needed for Nausea and Vomiting (N/V). proMETHazin 2021-03- No [id number] 25mg Take 1 Univers e 25 mg 1-15 12-05 tablet by ity of tablet 00:00: 00:00 mouth [place] 00 :00 every 4 Medical (four) Branch hours as needed for Nausea and Vomiting (N/V). proMETHazin 2021-03- No [id number] 25mg Take 1 Univers e 25 mg 1-15 12-05 tablet by ity of tablet 00:00: 00:00 mouth [place] 00 :00 every 4 Medical (four) Branch hours as needed for Nausea and Vomiting (N/V). lamoTRIgine 2021-03 Yes [id number] 75mg Take 3 Univers 25 mg 1-10 tablets by ity of tablet 00:00: mouth [place] 00 every Medical morning. Branch lamoTRIgine 2021-03 Yes [id number] 100mg Take 1 Univers (LAMICTAL) 1-10 tablet by ity of 100 mg 00:00: mouth at [place] tablet 00 bedtime. Medical Branch lamoTRIgine 2021-03 Yes [id number] 75mg Take 3 [facility] 25 mg 1-10 tablets by ity of tablet 00:00: mouth [place] 00 every Medical morning. Branch lamoTRIgine 2021-03 Yes [id number] 100mg Take 1 Univers (LAMICTAL) 1-10 tablet by ity of 100 mg 00:00: mouth at [place] tablet 00 bedtime. Medical Branch lamoTRIgine 2021-03 Yes [id number] 75mg Take 3 [facility] 25 mg 1-10 tablets by ity of tablet 00:00: mouth [place] 00 every Medical morning. Branch lamoTRIgine 2021-03 Yes [id number] 100mg Take 1 Univers (LAMICTAL) 1-10 tablet by ity of 100 mg 00:00: mouth at [place] tablet 00 bedtime. Medical Branch lamoTRIgine 2021-03 Yes [id number] 75mg Take 3 [facility] 25 mg 1-10 tablets by ity of tablet 00:00: mouth [place] 00 every Medical morning. Branch lamoTRIgine 2021-03 Yes [id number] 100mg Take 1 Univers (LAMICTAL) 1-10 tablet by ity of 100 mg 00:00: mouth at [place] tablet 00 bedtime. Medical Branch lamoTRIgine 2021-03 Yes [id number] 75mg Take 3 [facility] 25 mg 1-10 tablets by ity of tablet 00:00: mouth [place] 00 every Medical morning. Branch lamoTRIgine 2021-03 Yes [id number] 100mg Take 1 Univers (LAMICTAL) 1-10 tablet by ity of 100 mg 00:00: mouth at [place] tablet 00 bedtime. Medical Branch lamoTRIgine 2021-03 Yes [id number] 75mg Take 3 [facility] 25 mg 1-10 tablets by ity of tablet 00:00: mouth [place] 00 every Medical morning. Branch lamoTRIgine 2021-03 Yes [id number] 100mg Take 1 Univers (LAMICTAL) 1-10 tablet by ity of 100 mg 00:00: mouth at [place] tablet 00 bedtime. Medical Branch lamoTRIgine 2021-03 Yes [id number] 75mg Take 3 [facility] 25 mg 1-10 tablets by ity of tablet 00:00: mouth [place] 00 every Medical morning. Branch lamoTRIgine 2021-03 Yes [id number] 100mg Take 1 Univers (LAMICTAL) 1-10 tablet by ity of 100 mg 00:00: mouth at [place] tablet 00 bedtime. Medical Branch lamoTRIgine 2021-03 Yes [id number] 75mg Take 3 [facility] 25 mg 1-10 tablets by ity of tablet 00:00: mouth [place] 00 every Medical morning. Branch lamoTRIgine 2021-03 Yes [id number] 100mg Take 1 Univers (LAMICTAL) 1-10 tablet by ity of 100 mg 00:00: mouth at [place] tablet 00 bedtime. Medical Branch lamoTRIgine 2021-03 Yes [id number] 75mg Take 3 [facility] 25 mg 1-10 tablets by ity of tablet 00:00: mouth [place] 00 every Medical morning. Branch lamoTRIgine 2021-03 Yes [id number] 100mg Take 1 Univers (LAMICTAL) 1-10 tablet by ity of 100 mg 00:00: mouth at [place] tablet 00 bedtime. Medical Branch lamoTRIgine 2021-03 Yes [id number] 75mg Take 3 [facility] 25 mg 1-10 tablets by ity of tablet 00:00: mouth [place] 00 every Medical morning. Branch lamoTRIgine 2021-03 Yes [id number] 100mg Take 1 Univers (LAMICTAL) 1-10 tablet by ity of 100 mg 00:00: mouth at [place] tablet 00 bedtime. Medical Branch lamoTRIgine 2021-03 Yes [id number] 75mg Take 3 [facility] 25 mg 1-10 tablets by ity of tablet 00:00: mouth [place] 00 every Medical morning. Branch lamoTRIgine 2021-03 Yes [id number] 100mg Take 1 Univers (LAMICTAL) 1-10 tablet by ity of 100 mg 00:00: mouth at [place] tablet 00 bedtime. Medical Branch lamoTRIgine 2021-03 Yes [id number] 75mg Take 3 [facility] 25 mg 1-10 tablets by ity of tablet 00:00: mouth [place] 00 every Medical morning. Branch lamoTRIgine 2021-03 Yes [id number] 100mg Take 1 Univers (LAMICTAL) 1-10 tablet by ity of 100 mg 00:00: mouth at [place] tablet 00 bedtime. Medical Branch lamoTRIgine 2021-03 Yes [id number] 75mg Take 3 [facility] 25 mg 1-10 tablets by ity of tablet 00:00: mouth [place] 00 every Medical morning. Branch lamoTRIgine 2021-03 Yes [id number] 100mg Take 1 Univers (LAMICTAL) 1-10 tablet by ity of 100 mg 00:00: mouth at [place] tablet 00 bedtime. Medical Branch lamoTRIgine 2021-03 Yes [id number] 75mg Take 3 [facility] 25 mg 1-10 tablets by ity of tablet 00:00: mouth [place] 00 every Medical morning. Branch lamoTRIgine 2021-03 Yes [id number] 100mg Take 1 Univers (LAMICTAL) 1-10 tablet by ity of 100 mg 00:00: mouth at [place] tablet 00 bedtime. Medical Branch lamoTRIgine 2021-03 Yes [id number] 75mg Take 3 [facility] 25 mg 1-10 tablets by ity of tablet 00:00: mouth [place] 00 every Medical morning. Branch lamoTRIgine 2021-03 Yes [id number] 100mg Take 1 Univers (LAMICTAL) 1-10 tablet by ity of 100 mg 00:00: mouth at [place] tablet 00 bedtime. Medical Branch lamoTRIgine 2021-03 Yes [id number] 75mg Take 3 Univers 25 mg 1-10 tablets by ity of tablet 00:00: mouth [place] 00 every Medical morning. Branch lamoTRIgine 2021-03 Yes [id number] 100mg Take 1 Univers (LAMICTAL) 1-10 tablet by ity of 100 mg 00:00: mouth at [place] tablet 00 bedtime. Medical Branch lamoTRIgine 2021-03 Yes [id number] 75mg Take 3 [facility] 25 mg 1-10 tablets by ity of tablet 00:00: mouth [place] 00 every Medical morning. Branch lamoTRIgine 2021-03 Yes [id number] 100mg Take 1 Univers (LAMICTAL) 1-10 tablet by ity of 100 mg 00:00: mouth at [place] tablet 00 bedtime. Medical Branch lamoTRIgine 2021-03 Yes [id number] 75mg Take 3 Univers 25 mg 1-10 tablets by ity of tablet 00:00: mouth [place] 00 every Medical morning. Branch lamoTRIgine 2021-03 Yes [id number] 100mg Take 1 Univers (LAMICTAL) 1-10 tablet by ity of 100 mg 00:00: mouth at [place] tablet 00 bedtime. [facility] Branch lamoTRIgine 2021-03 Yes [id number] 75mg Take 3 Univers 25 mg 1-10 tablets by ity of tablet 00:00: mouth [place] 00 every Medical morning. Branch lamoTRIgine 2021-03 Yes [id number] 100mg Take 1 Univers (LAMICTAL) 1-10 tablet by ity of 100 mg 00:00: mouth at [place] tablet 00 bedtime. [facility] Branch lamoTRIgine 2021-03 Yes [id number] 75mg Take 3 Univers 25 mg 1-10 tablets by ity of tablet 00:00: mouth [place] 00 every Medical morning. Branch lamoTRIgine 2021-03 Yes [id number] 100mg Take 1 Univers (LAMICTAL) 1-10 tablet by ity of 100 mg 00:00: mouth at [place] tablet 00 bedtime. Medical Branch lamoTRIgine 2021-03 Yes [id number] 75mg Take 3 [facility] 25 mg 1-10 tablets by ity of tablet 00:00: mouth [place] 00 every Medical morning. Branch lamoTRIgine 2021-03 Yes [id number] 100mg Take 1 Univers (LAMICTAL) 1-10 tablet by ity of 100 mg 00:00: mouth at [place] tablet 00 bedtime. Medical Branch lamoTRIgine 2021-03 Yes [id number] 75mg Take 3 [facility] 25 mg 1-10 tablets by ity of tablet 00:00: mouth [place] 00 every Medical morning. Branch lamoTRIgine 2021-03 Yes [id number] 100mg Take 1 Univers (LAMICTAL) 1-10 tablet by ity of 100 mg 00:00: mouth at [place] tablet 00 bedtime. Medical Branch lamoTRIgine 2021-03 Yes [id number] 75mg Take 3 [facility] 25 mg 1-10 tablets by ity of tablet 00:00: mouth [place] 00 every Medical morning. Branch lamoTRIgine 2021-03 Yes [id number] 100mg Take 1 Univers (LAMICTAL) 1-10 tablet by ity of 100 mg 00:00: mouth at [place] tablet 00 bedtime. Medical Branch lamoTRIgine 2021-03 Yes [id number] 75mg Take 3 [facility] 25 mg 1-10 tablets by ity of tablet 00:00: mouth [place] 00 every Medical morning. Branch lamoTRIgine 2021-03 Yes [id number] 100mg Take 1 Univers (LAMICTAL) 1-10 tablet by ity of 100 mg 00:00: mouth at [place] tablet 00 bedtime. Medical Branch lamoTRIgine 2021-03 Yes [id number] 75mg Take 3 [facility] 25 mg 1-10 tablets by ity of tablet 00:00: mouth [place] 00 every Medical morning. Branch lamoTRIgine 2021-03 Yes [id number] 100mg Take 1 Univers (LAMICTAL) 1-10 tablet by ity of 100 mg 00:00: mouth at [place] tablet 00 bedtime. Medical Branch lamoTRIgine 2021-03 Yes [id number] 75mg Take 3 [facility] 25 mg 1-10 tablets by ity of tablet 00:00: mouth [place] 00 every Medical morning. Branch lamoTRIgine 2021-03 Yes [id number] 100mg Take 1 Univers (LAMICTAL) 1-10 tablet by ity of 100 mg 00:00: mouth at [place] tablet 00 bedtime. Medical Branch lamoTRIgine 2021-03 Yes [id number] 75mg Take 3 Univers 25 mg 1-10 tablets by ity of tablet 00:00: mouth [place] 00 every Medical morning. Branch lamoTRIgine 2021-03 Yes [id number] 100mg Take 1 Univers (LAMICTAL) 1-10 tablet by ity of 100 mg 00:00: mouth at [place] tablet 00 bedtime. Medical Branch lamoTRIgine 2021-03 Yes [id number] 75mg Take 3 [facility] 25 mg 1-10 tablets by ity of tablet 00:00: mouth [place] 00 every Medical morning. Branch lamoTRIgine 2021-03 Yes [id number] 100mg Take 1 Univers (LAMICTAL) 1-10 tablet by ity of 100 mg 00:00: mouth at [place] tablet 00 bedtime. Medical Branch lamoTRIgine 2021-03 Yes [id number] 75mg Take 3 [facility] 25 mg 1-10 tablets by ity of tablet 00:00: mouth [place] 00 every Medical morning. Branch lamoTRIgine 2021-03 Yes [id number] 100mg Take 1 Univers (LAMICTAL) 1-10 tablet by ity of 100 mg 00:00: mouth at [place] tablet 00 bedtime. Medical Branch lamoTRIgine 2021-03 Yes [id number] 75mg Take 3 Univers 25 mg 1-10 tablets by ity of tablet 00:00: mouth [place] 00 every Medical morning. Branch lamoTRIgine 2021-03 Yes [id number] 100mg Take 1 Univers (LAMICTAL) 1-10 tablet by ity of 100 mg 00:00: mouth at [place] tablet 00 bedtime. Medical Branch lamoTRIgine 2021-03 Yes [id number] 75mg Take 3 Univers 25 mg 1-10 tablets by ity of tablet 00:00: mouth [place] 00 every Medical morning. Branch lamoTRIgine 2021-03 Yes [id number] 100mg Take 1 Univers (LAMICTAL) 1-10 tablet by ity of 100 mg 00:00: mouth at [place] tablet 00 bedtime. Medical Branch lamoTRIgine 2021-03 Yes [id number] 75mg Take 3 Univers 25 mg 1-10 tablets by ity of tablet 00:00: mouth [place] 00 every Medical morning. Branch lamoTRIgine 2021-03 Yes [id number] 100mg Take 1 Univers (LAMICTAL) 1-10 tablet [...] combo pack Branch foLIC acid 2021-03- No [id number] 4mg Take 4 Univers 1 mg tablet 0-27 12-27 tablets by i ty of 00:00: 05:59 mouth in [place] 00 :00 the Medical morning Branch for 60 days. foLIC acid 2021-03- No [id number] 4mg Take 4 Univers 1 mg tablet 0-27 12-27 tablets by i ty of 00:00: 05:59 mouth in [place] 00 :00 the Medical morning Branch for 60 days. foLIC acid 2021-03- No [id number] 4mg Take 4 Univers 1 mg tablet 0-27 12-27 tablets by i ty of 00:00: 05:59 mouth in [place] 00 :00 the Medical morning Branch for 60 days. foLIC acid 2021-03- No [id number] 4mg Take 4 Univers 1 mg tablet 0-27 12-27 tablets by i ty of 00:00: 05:59 mouth in [place] 00 :00 the Medical morning Branch for 60 days. foLIC acid 2021-03- No [id number] 4mg Take 4 Univers 1 mg tablet 0-27 12-27 tablets by i ty of 00:00: 05:59 mouth in [place] 00 :00 the Medical morning Branch for 60 days. foLIC acid 2021-03- No [id number] 4mg Take 4 Univers 1 mg tablet 0-27 12-27 tablets by i ty of 00:00: 05:59 mouth in [place] 00 :00 the [facility] morning Branch for 60 days. foLIC acid 2021-03- No [id number] 4mg Take 4 Univers 1 mg tablet 0-27 12-27 tablets by i ty of 00:00: 05:59 mouth in [place] 00 :00 the [facility] morning Branch for 60 days. foLIC acid 2021-03- No [id number] 4mg Take 4 Univers 1 mg tablet 0-27 12-27 tablets by i ty of 00:00: 05:59 mouth in [place] 00 :00 the [facility] morning Branch for 60 days. foLIC acid 2021-03- No [id number] 4mg Take 4 Univers 1 mg tablet 0-27 12-27 tablets by i ty of 00:00: 05:59 mouth in [place] 00 :00 the Medical morning Branch for 60 days. foLIC acid 2021-03- No [id number] 4mg Take 4 Univers 1 mg tablet 0-27 12-27 tablets by i ty of 00:00: 05:59 mouth in [place] 00 :00 the Medical morning Branch for 60 days. foLIC acid 2021-03- No [id number] 4mg Take 4 Univers 1 mg tablet 0-27 12-27 tablets by i ty of 00:00: 05:59 mouth in [place] 00 :00 the [facility] morning Branch for 60 days. foLIC acid 2021-03- No [id number] 4mg Take 4 Univers 1 mg tablet 0-27 12-27 tablets by i ty of 00:00: 05:59 mouth in [place] 00 :00 the Medical morning Branch for 60 days. foLIC acid 2021-03- No [id number] 4mg Take 4 Univers 1 mg tablet 0-27 12-27 tablets by i ty of 00:00: 05:59 mouth in [place] 00 :00 the Medical morning Branch for 60 days. foLIC acid 2021-03- No [id number] 4mg Take 4 Univers 1 mg tablet 0-27 12-27 tablets by i ty of 00:00: 05:59 mouth in [place] 00 :00 the Medical morning Branch for 60 days. foLIC acid 2021-03- No [id number] 4mg Take 4 Univers 1 mg tablet 0-27 12-27 tablets by i ty of 00:00: 05:59 mouth in [place] 00 :00 the Medical morning Branch for 60 days. foLIC acid 2021-03- No [id number] 4mg Take 4 Univers 1 mg tablet 0-27 12-27 tablets by i ty of 00:00: 05:59 mouth in [place] 00 :00 the Medical morning Branch for 60 days. foLIC acid 2021-03- No [id number] 4mg Take 4 Univers 1 mg tablet 0-27 12-27 tablets by i ty of 00:00: 05:59 mouth in [place] 00 :00 the Medical morning Branch for 60 days. foLIC acid 2021-03- No [id number] 4mg Take 4 Univers 1 mg tablet 0-27 12-27 tablets by i ty of 00:00: 05:59 mouth in [place] 00 :00 the Medical morning Branch for 60 days. foLIC acid 2021-03- No [id number] 4mg Take 4 Univers 1 mg tablet 0-27 12-27 tablets by i ty of 00:00: 05:59 mouth in [place] 00 :00 the Medical morning Branch for 60 days. foLIC acid 2021-03- No [id number] 4mg Take 4 Univers 1 mg tablet 0-27 12-27 tablets by i ty of 00:00: 05:59 mouth in [place] 00 :00 the Medical morning Branch for 60 days. foLIC acid 2021-03- No [id number] 4mg Take 4 Univers 1 mg tablet 0-27 12-27 tablets by i ty of 00:00: 05:59 mouth in [place] 00 :00 the Medical morning Branch for 60 days. foLIC acid 2021-03- No [id number] 4mg Take 4 Univers 1 mg tablet 0-27 12-27 tablets by i ty of 00:00: 05:59 mouth in [place] 00 :00 the Medical morning Branch for 60 days. foLIC acid 2021-03- No [id number] 4mg Take 4 Univers 1 mg tablet 0-27 12-27 tablets by i ty of 00:00: 05:59 mouth in [place] 00 :00 the Medical morning Branch for 60 days. foLIC acid 2021-03- No [id number] 4mg Take 4 Univers 1 mg tablet 0-27 12-27 tablets by i ty of 00:00: 05:59 mouth in [place] 00 :00 the Medical morning Branch for 60 days. foLIC acid 2021-03- No [id number] 4mg Take 4 Univers 1 mg tablet 0-27 12-27 tablets by i ty of 00:00: 05:59 mouth in [place] 00 :00 the [facility] morning Branch for 60 days. foLIC acid 2021-03- No [id number] 4mg Take 4 Univers 1 mg tablet 0-27 12-27 tablets by i ty of 00:00: 05:59 mouth in [place] 00 :00 the Medical morning Branch for 60 days. foLIC acid 2021-03- No [id number] 4mg Take 4 [facility] 1 mg tablet 0-27 12-27 tablets by i ty of 00:00: 05:59 mouth in [place] 00 :00 the [facility] morning Branch for 60 days. foLIC acid 2021-03- No [id number] 4mg Take 4 [facility] 1 mg tablet 0-27 12-07 tablets by i ty of 00:00: 00:00 mouth in [place] 00 :00 the [facility] morning Branch for 60 days. albuterol 2021-03 [...] 00 MOUTH ONCE Med ical DAILY IN [place] THE MORNING lamoTRIgine 2021-03 Yes CHEW AND [facility] [place] 25 mg 0-06 SWALLOW 2 ity of disintegrat 00:00: TABLETS BY [place] ing tablet 00 MOUTH ONCE Med ical DAILY IN [place] THE MORNING lamoTRIgine 2021-03 Yes CHEW AND [facility] [place] 25 mg 0-06 SWALLOW 2 ity of disintegrat 00:00: TABLETS BY [place] ing tablet 00 MOUTH ONCE Med ical DAILY IN [place] THE MORNING lamoTRIgine 2021-03 Yes CHEW AND [facility] [place] 25 mg 0-06 SWALLOW 2 ity of disintegrat 00:00: TABLETS BY [place] ing tablet 00 MOUTH ONCE Med ical DAILY IN [place] THE MORNING lamoTRIgine 2021-03 Yes CHEW AND [facility] [place] 25 mg 0-06 SWALLOW 2 ity of disintegrat 00:00: TABLETS BY [place] ing tablet 00 MOUTH ONCE Med ical DAILY IN [place] THE MORNING lamoTRIgine 2021-03 Yes CHEW AND [facility] [place] 25 mg 0-06 SWALLOW 2 ity of disintegrat 00:00: TABLETS BY [place] ing tablet 00 MOUTH ONCE Med ical DAILY IN [place] THE MORNING lamoTRIgine 2021-03 Yes CHEW AND [facility] [place] 25 mg 0-06 SWALLOW 2 ity of disintegrat 00:00: TABLETS BY [place] ing tablet 00 MOUTH ONCE Med ical DAILY IN [place] THE MORNING lamoTRIgine 2021-03 Yes CHEW AND [facility] [place] 25 mg 0-06 SWALLOW 2 ity of disintegrat 00:00: TABLETS BY [place] ing tablet 00 MOUTH ONCE Med ical DAILY IN [place] THE MORNING lamoTRIgine 2021-03 Yes CHEW AND [facility] [place] 25 mg 0-06 SWALLOW 2 ity of disintegrat 00:00: TABLETS BY [place] ing tablet 00 MOUTH ONCE Med ical DAILY IN [place] THE MORNING lamoTRIgine 2021-03 Yes CHEW AND [facility] [place] 25 mg 0-06 SWALLOW 2 ity of disintegrat 00:00: TABLETS BY [place] ing tablet 00 MOUTH ONCE Med ical DAILY IN [place] THE MORNING lamoTRIgine 2021-03 Yes CHEW AND [facility] [place] 25 mg 0-06 SWALLOW 2 ity of disintegrat 00:00: TABLETS BY [place] ing tablet 00 MOUTH ONCE Med ical DAILY IN [place] THE MORNING lamoTRIgine 2021-03 Yes CHEW AND [facility] [place] 25 mg 0-06 SWALLOW 2 ity of disintegrat 00:00: TABLETS BY [place] ing tablet 00 MOUTH ONCE Med ical DAILY IN [place] THE MORNING lamoTRIgine 2021-03 Yes CHEW AND [facility] [place] 25 mg 0-06 SWALLOW 2 ity of disintegrat 00:00: TABLETS BY [place] ing tablet 00 MOUTH ONCE Med ical DAILY IN [place] THE MORNING lamoTRIgine 2021-03 Yes CHEW AND [facility] [place] 25 mg 0-06 SWALLOW 2 ity of disintegrat 00:00: TABLETS BY [place] ing tablet 00 MOUTH ONCE Med ical DAILY IN [place] THE MORNING lamoTRIgine 2021-03 Yes CHEW AND [facility] [place] 25 mg 0-06 SWALLOW 2 ity of disintegrat 00:00: TABLETS BY [place] ing tablet 00 MOUTH ONCE Med ical DAILY IN [place] THE MORNING lamoTRIgine 2021-03 Yes CHEW AND [facility] [place] 25 mg 0-06 SWALLOW 2 ity of disintegrat 00:00: TABLETS BY [place] ing tablet 00 MOUTH ONCE Med ical DAILY IN [place] THE MORNING lamoTRIgine 2021-03 Yes CHEW AND [facility] [place] 25 mg 0-06 SWALLOW 2 ity of disintegrat 00:00: TABLETS BY [place] ing tablet 00 MOUTH ONCE Med ical DAILY IN [place] THE MORNING lamoTRIgine 2021-03 Yes CHEW AND [place] 25 mg 0-06 SWALLOW 2 ity of disintegrat 00:00: TABLETS BY [place] ing tablet 00 MOUTH ONCE Med ical DAILY IN [place] THE MORNING lamoTRIgine 2021-03- No CHEW AND U nivers 25 mg 0-06 12-05 SWALLOW 2 ity of disintegrat 00:00: 00:00 TABLETS BY [place] ing tablet 00 :00 MOUTH ONCE Med ical DAILY IN [place] THE MORNING lamoTRIgine 2021-03- No CHEW AND [...] 18:22: mouth at [place] tablet [address] lamoTRIgine Yes 100mg Take 100 U nivers (LAMICTAL) 9-25 mg by ity of 100 mg 18:22: mouth at [place] tablet [address] lamoTRIgine Yes 100mg Take 100 U nivers (LAMICTAL) 9-25 mg by ity of 100 mg 18:22: mouth at [place] tablet [address] lamoTRIgine Yes 100mg Take 100 U nivers (LAMICTAL) 9-25 mg by ity of 100 mg 18:22: mouth at [place] tablet [address] lamoTRIgine Yes 100mg Take 100 U nivers (LAMICTAL) 9-25 mg by ity of 100 mg 18:22: mouth at [place] tablet [address] lamoTRIgine Yes 100mg Take 100 U nivers (LAMICTAL) 9-25 mg by ity of 100 mg 18:22: mouth at [place] tablet [address] lamoTRIgine 0 Yes 100mg Take 100 U nivers (LAMICTAL) 9-25 mg by ity of 100 mg 18:22: mouth at [place] tablet [address] lamoTRIgine Yes 100mg Take 100 U nivers (LAMICTAL) 9-25 mg by ity of 100 mg 18:22: mouth at [place] tablet [address] lamoTRIgine 2022-0 Yes 100mg Take 100 U nivers (LAMICTAL) 9-25 mg by ity of 100 mg 18:22: mouth at [place] tablet 12 bedtime. Medical 25 [facility] lamoTRIgine 0 Yes 100mg Take 100 U nivers (LAMICTAL) 9-25 mg by ity of 100 mg 18:22: mouth at [place] tablet 12 bedtime. Medical 25 [facility] lamoTRIgine 0 Yes 100mg Take 100 U nivers (LAMICTAL) 9-25 mg by ity of 100 mg 18:22: mouth at [place] tablet 12 bedtime. Medical 25 [facility] lamoTRIgine 0 Yes 100mg Take 100 U nivers (LAMICTAL) 9-25 mg by ity of 100 mg 18:22: mouth at [place] tablet 12 bedtime. Medical 25 [facility] lamoTRIgine 0 Yes 100mg Take 100 U nivers (LAMICTAL) 9-25 mg by ity of 100 mg 18:22: mouth at [place] tablet 12 bedtime. Medical 25 [facility] lamoTRIgine Yes 100mg Take 100 U nivers (LAMICTAL) 9-25 mg by ity of 100 mg 18:22: mouth at [place] tablet 12 bedtime. Medical 25 [facility] lamoTRIgine 0 Yes 100mg Take 100 U nivers (LAMICTAL) 9-25 mg by ity of 100 mg 18:22: mouth at [place] tablet 12 bedtime. Medical 25 [facility] lamoTRIgine 0 Yes 100mg Take 100 U nivers (LAMICTAL) 9-25 mg by ity of 100 mg 18:22: mouth at [place] tablet 12 bedtime. Medical 25 [facility] lamoTRIgine 0 Yes 100mg Take 100 U nivers (LAMICTAL) 9-25 mg by ity of 100 mg 18:22: mouth at [place] tablet 12 bedtime. Medical 25 [facility] lamoTRIgine 0 Yes 100mg Take 100 U nivers (LAMICTAL) 9-25 mg by ity of 100 mg 18:22: mouth at [place] tablet 12 bedtime. Medical 25 [facility] lamoTRIgine 0 Yes 100mg Take 100 U nivers (LAMICTAL) 9-25 mg by ity of 100 mg 18:22: mouth at [place] tablet [address] lamoTRIgine 0 Yes 100mg Take 100 U nivers (LAMICTAL) 9-25 mg by ity of 100 mg 18:22: mouth at [place] tablet [address] lamoTRIgine 0 Yes 100mg Take 100 U nivers (LAMICTAL) 9-25 mg by ity of 100 mg 18:22: mouth at [place] tablet [address] lamoTRIgine 0 Yes 100mg Take 100 U nivers (LAMICTAL) 9-25 mg by ity of 100 mg 18:22: mouth at [place] tablet [address] lamoTRIgine Yes 100mg Take 100 U nivers (LAMICTAL) 9-25 mg by ity of 100 mg 18:22: mouth at [place] tablet [address] lamoTRIgine Yes 100mg Take 100 U nivers (LAMICTAL) 9-25 mg by ity of 100 mg 18:22: mouth at [place] tablet [address] lamoTRIgine Yes 100mg Take 100 U nivers (LAMICTAL) 9-25 mg by ity of 100 mg 18:22: mouth at [place] tablet [address] lamoTRIgine Yes 100mg Take 100 U nivers (LAMICTAL) 9-25 mg by ity of 100 mg 18:22: mouth at [place] tablet [address] cyclobenzap 2021- No [id number] 10mg Take 1 [facility] rine 10 mg 9-25 10-01 tablet by ity of tablet 00:00: 04:59 mouth in [place] 00 :00 the Medical morning Branch and 1 tablet at noon and 1 tablet in the evening. Do all this for 15 doses. cyclobenzap 2021- No [id number] 10mg Take 1 [facility] rine 10 mg 9-25 10-01 tablet by ity of tablet 00:00: 04:59 mouth in [place] 00 :00 the Medical morning Branch and 1 tablet at noon and 1 tablet in the evening. Do all this for 15 doses. hydrOXYzine 2022-0 Yes Univer s 25 mg/mL 9-16 ity of injection 00:00: [place] 00 Medical Branch hydrOXYzine 2-0 Yes Univer s 25 mg/mL 9-16 ity of injection 00:00: [place] 00 Medical Branch hydrOXYzine 2-0 Yes Univer s 25 mg/mL 9-16 ity of injection 00:00: [place] 00 Medical Branch hydrOXYzine 2-0 Yes Univer s 25 mg/mL 9-16 ity of injection 00:00: [place] 00 Medical Branch hydrOXYzine 2-0 Yes Univer s 25 mg/mL 9-16 ity of injection 00:00: [place] [address] Medical Branch hydrOXYzine 2-0 Yes Univer s 25 mg/mL 9-16 ity of injection 00:00: [place] [address] Medical Branch hydrOXYzine 2-0 Yes Univer s 25 mg/mL 9-16 ity of injection 00:00: [place] [address] Medical Branch hydrOXYzine 2-0 Yes Univer s 25 mg/mL 9-16 ity of injection 00:00: [place] [address] Medical Branch hydrOXYzine 2-0 Yes Univer s 25 mg/mL 9-16 ity of injection 00:00: [place] [address] Medical Branch hydrOXYzine 2-0 Yes Univer s 25 mg/mL 9-16 ity of injection 00:00: [place] [address] Medical Branch hydrOXYzine 2-0 Yes Univer s 25 mg/mL 9-16 ity of injection 00:00: [place] [address] Medical Branch hydrOXYzine 2-0 Yes Univer s 25 mg/mL 9-16 ity of injection 00:00: [place] 00 Medical Branch hydrOXYzine 2-0 Yes Univer s 25 mg/mL 9-16 ity of injection 00:00: [place] [address] Medical Branch hydrOXYzine 2-0 Yes Univer s 25 mg/mL 9-16 ity of injection 00:00: [place] 00 Medical Branch hydrOXYzine 2-0 Yes Univer s 25 mg/mL 9-16 ity of injection 00:00: [place] 00 Medical Branch hydrOXYzine 2022-0 Yes Univer s 25 mg/mL 9-16 ity of injection 00:00: [place] 00 Medical Branch hydrOXYzine 2-0 Yes Univer s 25 mg/mL 9-16 ity of injection 00:00: [place] 00 Medical Branch hydrOXYzine 2022-0 Yes Univer s 25 mg/mL 9-16 ity of injection 00:00: [place] 00 Medical Branch hydrOXYzine 2-0 Yes Univer s 25 mg/mL 9-16 ity of injection 00:00: [place] 00 Medical Branch hydrOXYzine 2022-0 Yes Univer s 25 mg/mL 9-16 ity of injection 00:00: [place] [address] Medical Branch hydrOXYzine 2-0 Yes Univer s 25 mg/mL 9-16 ity of injection 00:00: [place] [address] Medical Branch hydrOXYzine 2022-0 Yes Univer s 25 mg/mL 9-16 ity of injection 00:00: [place] [address] Medical Branch hydrOXYzine 2-0 Yes Univer s 25 mg/mL 9-16 ity of injection 00:00: [place] [address] Medical Branch hydrOXYzine 2-0 Yes Univer s 25 mg/mL 9-16 ity of injection 00:00: [place] [address] Medical Branch hydrOXYzine 2-0 Yes Univer s 25 mg/mL 9-16 ity of injection 00:00: [place] [address] Medical Branch hydrOXYzine 2-0 2- No Unive rs 25 mg/mL 9-16 12-05 ity of injection 00:00: 00:00 [place] 00 :00 Medical Branch hydrOXYzine 2022-0 2022- No Unive rs 25 mg/mL 9-16 12-05 ity of injection 00:00: 00:00 [place] 00 :00 Medical Branch hydrOXYzine 2022-0 Yes Univer s 25 mg 9-13 ity of capsule 00:00: [place] 00 Medical Branch hydrOXYzine 2-0 Yes Univer s 25 mg 9-13 ity of capsule 00:00: [place] [address] Medical Branch hydrOXYzine 2022-0 Yes Univer s 25 mg 9-13 ity of capsule 00:00: [place] [address] Medical Branch hydrOXYzine 2022-0 Yes Univer s 25 mg 9-13 ity of capsule 00:00: [place] [address] Medical Branch hydrOXYzine 2022-0 2022- No Unive rs 25 mg 9-13 11-10 ity of capsule 00:00: 00:00 [place] 00 :00 Medical Branch hydrOXYzine 2022-0 2022- No Unive rs 25 mg 9-13 11-10 ity of capsule 00:00: 00:00 [place] 00 :00 Medical Branch hydrOXYzine 2-0 2- No Unive rs 25 mg 9-13 11-10 ity of capsule 00:00: 00:00 [place] 00 :00 Medical Branch hydrOXYzine 2-0 2- No Unive rs 25 mg 9-13 11-10 ity of capsule 00:00: 00:00 [place] 00 :00 Medical Branch hydrOXYzine 2-0 2- No Unive rs 25 mg 9-13 11-10 ity of capsule 00:00: 00:00 [place] 00 :00 Medical Branch lamoTRIgine 2-0 Yes 25mg Take 25 mg [facility] 25 mg 9-12 by mouth ity of tablet 00:00: every [place] 00 morning. Medical Branch lamoTRIgine 2022-0 Yes 25mg Take 25 mg [facility] 25 mg 9-12 by mouth ity of tablet 00:00: every [place] 00 morning. Medical Branch lamoTRIgine 2-0 Yes 25mg Take 25 mg [facility] 25 mg 9-12 by mouth ity of tablet 00:00: every [place] 00 morning. Medical Branch lamoTRIgine 2-0 Yes 25mg Take 25 mg [facility] 25 mg 9-12 by mouth ity of tablet 00:00: [facility] 00 morning. Medical Branch lamoTRIgine 2-0 2022- No 25mg Take 25 mg [facility] 25 mg 9-12 11-10 by mouth ity of tablet 00:00: 00:00 every [place] 00 :00 morning. Medical Branch lamoTRIgine 2022-0 2022- No 25mg Take 25 mg [facility] 25 mg 9-12 11-10 by mouth ity of tablet 00:00: 00:00 [facility] 00 :00 morning. Medical Branch lamoTRIgine 2022-0 2022- No 25mg Take 25 mg [facility] 25 mg 9-12 11-10 by mouth ity of tablet 00:00: 00:00 [facility] 00 :00 morning. Medical Branch lamoTRIgine 2022-0 2022- No 25mg Take 25 mg [facility] 25 mg 9-12 11-10 by mouth ity of tablet 00:00: 00:00 every [place] 00 :00 morning. Medical Branch lamoTRIgine 2022-0 2022- No 25mg Take 25 mg [facility] 25 mg 9-12 11-10 by mouth ity of tablet 00:00: 00:00 every [place] 00 :00 morning. Medical Branch lamoTRIgine 2021-0 Yes 100mg Take 100 U nivers (LAMICTAL) 8-29 mg by ity of 100 mg 15:28: mouth at [place] tablet 29 bedtime. Medical 25 [facility] lamoTRIgine 2021-0 Yes 100mg Take 100 U nivers (LAMICTAL) 8-29 mg by ity of 100 mg 15:28: mouth at [place] tablet 29 bedtime. Medical 25 [facility] lamoTRIgine 2021-0 Yes 100mg Take 100 U nivers (LAMICTAL) 8-29 mg by ity of 100 mg 15:28: mouth at [place] tablet 29 bedtime. Medical 25 [facility] lamoTRIgine 2021-0 Yes 100mg Take 100 U nivers (LAMICTAL) 8-29 mg by ity of 100 mg 15:28: mouth at [place] tablet 29 bedtime. Medical [facility] Branch lamoTRIgine 2021-0 Yes 100mg Take 100 U nivers (LAMICTAL) 8-29 mg by ity of 100 mg 15:28: mouth at [place] tablet 29 bedtime. Medical 25 [facility] lamoTRIgine 2021-0 Yes 100mg Take 100 U nivers (LAMICTAL) 8-29 mg by ity of 100 mg 15:28: mouth at [place] tablet 29 bedtime. Medical 25 [facility] lamoTRIgine 2021-0 Yes 100mg Take 100 U nivers (LAMICTAL) 8-29 mg by ity of 100 mg 15:28: mouth at [place] tablet 29 bedtime. Medical 25 [facility] lamoTRIgine 2021-0 Yes 100mg Take 100 U nivers (LAMICTAL) 8-29 mg by ity of 100 mg 15:28: mouth at [place] tablet 29 bedtime. Medical 25 [facility] lamoTRIgine 2021-0 Yes 100mg Take 100 U nivers (LAMICTAL) 8-29 mg by ity of 100 mg 15:28: mouth at [place] tablet 29 bedtime. Medical 25 [facility] lamoTRIgine 2021-0 Yes 100mg Take 100 U nivers (LAMICTAL) 8-29 mg by ity of 100 mg 15:28: mouth at [place] tablet 29 bedtime. Medical 25 [facility] lamoTRIgine 0 Yes 100mg Take 100 U nivers (LAMICTAL) 8-29 mg by ity of 100 mg 15:28: mouth at [place] tablet [address] lamoTRIgine 0 Yes 100mg Take 100 U nivers (LAMICTAL) 8-29 mg by ity of 100 mg 15:28: mouth at [place] tablet [address] lamoTRIgine Yes 100mg Take 100 U nivers (LAMICTAL) 8-29 mg by ity of 100 mg 15:28: mouth at [place] tablet [address] lamoTRIgine Yes Univer s (LAMICTAL) 6-15 ity of 100 mg 00:00: [place] tablet 00 [facility] lamoTRIgine 0 Yes Univer s (LAMICTAL) 6-15 ity of 100 mg 00:00: [place] tablet 00 [facility] lamoTRIgine 0 Yes Univer s (LAMICTAL) 6-15 ity of 100 mg 00:00: [place] tablet 00 [facility] lamoTRIgine 0 Yes Univer s (LAMICTAL) 6-15 ity of 100 mg 00:00: [place] tablet 00 [facility] lamoTRIgine 2021-0 2021- No Unive rs (LAMICTAL) 6-15 11-10 ity of 100 mg 00:00: 00:00 [place] tablet 00 :00 [facility] lamoTRIgine 2021-0 2021- No Unive rs (LAMICTAL) 6-15 11-10 ity of 100 mg 00:00: 00:00 [place] tablet 00 :00 [facility] lamoTRIgine 2021-0 2021- No Unive rs (LAMICTAL) 6-15 11-10 ity of 100 mg 00:00: 00:00 [place] tablet 00 :00 [facility] lamoTRIgine 2021-0 2021- No Unive rs (LAMICTAL) 6-15 11-10 ity of 100 mg 00:00: 00:00 [place] tablet 00 :00 [facility] lamoTRIgine 2021-0 2- No Unive rs (LAMICTAL) 6-15 11-10 ity of 100 mg 00:00: 00:00 [place] tablet 00 :00 Medical Branch busPIRone 2022-0 Yes [id number] 18.75mg Take 2.5 [facility] 7.5 mg 5-12 tablets by ity of tablet 00:00: mouth 3 [place] (three) Medical times Branch daily. busPIRone 2022-0 Yes [id number] 18.75mg Take 2.5 [facility] 7.5 mg 5-12 tablets by ity of tablet 00:00: mouth [place] (three) Medical times Branch daily. busPIRone 2022-0 Yes [id number] 18.75mg Take 2.5 [facility] 7.5 mg 5-12 tablets by ity of tablet 00:00: mouth [place] ([facility]) Medical times Branch daily. busPIRone 2022-0 Yes [id number] 18.75mg Take 2.5 [facility] 7.5 mg 5-12 tablets by ity of tablet 00:00: mouth [place] ([facility]) Medical times Branch daily. busPIRone 2022-0 Yes [id number] 18.75mg Take 2.5 [facility] 7.5 mg 5-12 tablets by ity of tablet 00:00: mouth [place] ([facility]) Medical times Branch daily. busPIRone 2022-0 Yes [id number] 18.75mg Take 2.5 [facility] 7.5 mg 5-12 tablets by ity of tablet 00:00: [facility] [place] (three) Medical times Branch daily. busPIRone 2022-0 Yes [id number] 18.75mg Take 2.5 [facility] 7.5 mg 5-12 tablets by ity of tablet 00:00: [address] ([facility]) Medical times Branch daily. busPIRone 2022-0 Yes [id number] 18.75mg Take 2.5 [facility] 7.5 mg 5-12 tablets by ity of tablet 00:00: mouth [address] [place] [address] ([facility]) Medical times Branch daily. busPIRone 2022-0 Yes [id number] 18.75mg Take 2.5 [facility] 7.5 mg 5-12 tablets by ity of tablet 00:00: mouth 3 [place] (three) Medical times Branch daily. busPIRone 2022-0 Yes [id number] 18.75mg Take 2.5 [facility] 7.5 mg 5-12 tablets by ity of tablet 00:00: mouth (three) Medical times Branch daily. busPIRone 2022-0 Yes [id number] 18.75mg Take 2.5 [facility] 7.5 mg 5-12 tablets by ity of tablet 00:00: mouth (three) Medical times Branch daily. busPIRone 2022-0 Yes [id number] 18.75mg Take 2.5 [facility] 7.5 mg 5-12 tablets by ity of tablet 00:00: [place] (three) Medical times Branch daily. busPIRone 2022-0 Yes [id number] 18.75mg Take 2.5 [facility] 7.5 mg 5-12 tablets by ity of tablet 00:00: mouth (three) Medical times Branch daily. busPIRone 2022-0 Yes [id number] 18.75mg Take 2.5 [facility] 7.5 mg 5-12 tablets by ity of tablet 00:00: mouth (three) Medical times Branch daily. busPIRone 2022-0 Yes [id number] 18.75mg Take 2.5 [facility] 7.5 mg 5-12 tablets by ity of tablet 00:00: mouth (three) Medical times Branch daily. busPIRone 2022-0 Yes [id number] 18.75mg Take 2.5 [facility] 7.5 mg 5-12 tablets by ity of tablet 00:00: mouth (three) Medical times Branch daily. busPIRone 2022-0 Yes [id number] 18.75mg Take 2.5 [facility] 7.5 mg 5-12 tablets by ity of tablet 00:00: [place] (three) Medical times Branch daily. busPIRone 2022-0 Yes [id number] 18.75mg Take 2.5 [facility] 7.5 mg 5-12 tablets by ity of tablet 00:00: [place] (three) Medical times Branch daily. busPIRone 2022-0 Yes [id number] 18.75mg Take 2.5 [facility] 7.5 mg 5-12 tablets by ity of tablet 00:00: [place] (three) Medical times Branch daily. busPIRone 2022-0 Yes [id number] 18.75mg Take 2.5 [facility] 7.5 mg 5-12 tablets by ity of tablet 00:00: mouth (three) Medical times Branch daily. busPIRone 2022-0 Yes [id number] 18.75mg Take 2.5 [facility] 7.5 mg 5-12 tablets by ity of tablet 00:00: mouth (three) Medical times Branch daily. busPIRone 2022-0 Yes [id number] 18.75mg Take 2.5 [facility] 7.5 mg 5-12 tablets by ity of tablet 00:00: mouth (three) Medical times Branch daily. busPIRone 2022-0 Yes [id number] 18.75mg Take 2.5 [facility] 7.5 mg 5-12 tablets by ity of tablet 00:00: mouth (three) Medical times Branch daily. busPIRone 2022-0 Yes [id number] 18.75mg Take 2.5 [facility] 7.5 mg 5-12 tablets by ity of tablet 00:00: mouth (three) Medical times Branch daily. busPIRone 2022-0 Yes [id number] 18.75mg Take 2.5 [facility] 7.5 mg 5-12 tablets by ity of tablet 00:00: mouth (three) Medical times Branch daily. busPIRone 2022-0 Yes [id number] 18.75mg Take 2.5 [facility] 7.5 mg 5-12 tablets by ity of tablet 00:00: mouth (three) Medical times Branch daily. busPIRone 2022-0 Yes [id number] 18.75mg Take 2.5 [facility] 7.5 mg 5-12 tablets by ity of tablet 00:00: mouth (three) Medical times Branch daily. busPIRone 2022-0 Yes [id number] 18.75mg Take 2.5 [facility] 7.5 mg 5-12 tablets by ity of tablet 00:00: mouth (three) Medical times Branch daily. busPIRone 2022-0 Yes [id number] 18.75mg Take 2.5 [facility] 7.5 mg 5-12 tablets by ity of tablet 00:00: mouth (three) Medical times Branch daily. busPIRone 2022-0 Yes [id number] 18.75mg Take 2.5 [facility] 7.5 mg 5-12 tablets by ity of tablet 00:00: mouth (three) Medical times Branch daily. busPIRone 2022-0 Yes [id number] 18.75mg Take 2.5 [facility] 7.5 mg 5-12 tablets by ity of tablet 00:00: mouth (three) Medical times Branch daily. busPIRone 2022-0 Yes [id number] 18.75mg Take 2.5 [facility] 7.5 mg 5-12 tablets by ity of tablet 00:00: mouth (three) Medical times Branch daily. busPIRone 2022-0 Yes [id number] 18.75mg Take 2.5 [facility] 7.5 mg 5-12 tablets by ity of tablet 00:00: mouth (three) Medical times Branch daily. busPIRone 2022-0 Yes [id number] 18.75mg Take 2.5 [facility] 7.5 mg 5-12 tablets by ity of tablet 00:00: mouth (three) Medical times Branch daily. busPIRone 2022-0 Yes [id number] 18.75mg Take 2.5 [facility] 7.5 mg 5-12 tablets by ity of tablet 00:00: mouth (three) Medical times Branch daily. busPIRone 2022-0 Yes [id number] 18.75mg Take 2.5 [facility] 7.5 mg 5-12 tablets by ity of tablet 00:00: mouth (three) Medical times Branch daily. busPIRone 2022-0 Yes [id number] 18.75mg Take 2.5 [facility] 7.5 mg 5-12 tablets by ity of tablet 00:00: mouth (three) Medical times Branch daily. busPIRone 2022-0 Yes [id number] 18.75mg Take 2.5 [facility] 7.5 mg 5-12 tablets by ity of tablet 00:00: mouth (three) Medical times Branch daily. busPIRone 2022-0 Yes [id number] 18.75mg Take 2.5 [facility] 7.5 mg 5-12 tablets by ity of tablet 00:00: mouth (three) Medical times Branch daily. busPIRone 2022-0 Yes [id number] 18.75mg Take 2.5 [facility] 7.5 mg 5-12 tablets by ity of tablet 00:00: mouth 3 (three) Medical times Branch daily. busPIRone 2021-0 Yes [id number] 18.75mg Take 2.5 [facility] 7.5 mg 5-12 tablets by ity of tablet 00:00: mouth 3 (three) Medical times Branch daily. busPIRone 0 Yes [id number] 18.75mg Take 2.5 [facility] 7.5 mg 5-12 tablets by ity of tablet 00:00: mouth 3 (three) Medical times Branch daily. busPIRone 2021-0 Yes [id number] 18.75mg Take 2.5 [facility] 7.5 mg 5-12 tablets by ity of tablet 00:00: mouth 3 (three) Medical times Branch daily. busPIRone Yes [id number] 18.75mg Take 2.5 [facility] 7.5 mg 5-12 tablets by ity of tablet 00:00: mouth 3 (three) Medical times Branch daily. busPIRone Yes [id number] 18.75mg Take 2.5 [facility] 7.5 mg 5-12 tablets by ity of tablet 00:00: mouth 3 (three) Medical times Branch daily. busPIRone 2021- No [id number] 18.75mg Take 2.5 [facility] 7.5 mg 5-12 12-05 tablets by ity of tablet 00:00: 00:00 mouth 3 [place] 00 :00 (three) Medical times Branch daily. busPIRone 2021- No [id number] 18.75mg Take 2.5 [facility] 7.5 mg 5-12 12-05 tablets by ity of tablet 00:00: 00:00 mouth 3 [place] 00 :00 (three) Medical times Branch daily. Yes [id number] 1{tbl} Take 1 U nivers multivitami 5-05 tablet by ity of n ( 00:00: mouth [place] VITAMIN) 00 daily. Medical tablet Branch Yes [id number] 1{tbl} Take 1 U nivers multivitami 5-05 tablet by ity of n ( 00:00: mouth [place] VITAMIN) 00 daily. Medical tablet Branch Yes [id number] 1{tbl} Take 1 U nivers multivitami 5-05 tablet by ity of n ( 00:00: mouth [place] VITAMIN) 00 daily. Medical tablet Branch Yes [id number] 1{tbl} Take 1 U nivers multivitami 5-05 tablet by ity of n ( 00:00: mouth [place] VITAMIN) 00 daily. Medical tablet Branch Yes [id number] 1{tbl} Take 1 U nivers multivitami 5-05 tablet by ity of n ( 00:00: mouth [place] VITAMIN) 00 daily. Medical tablet Branch Yes [id number] 1{tbl} Take 1 U nivers multivitami 5-05 tablet by ity of n ( 00:00: mouth [place] VITAMIN) 00 daily. Medical tablet Branch Yes [id number] 1{tbl} Take 1 U nivers multivitami 5-05 tablet by ity of n ( 00:00: mouth [place] VITAMIN) 00 daily. Medical tablet Branch Yes [id number] 1{tbl} Take 1 U nivers multivitami 5-05 tablet by ity of n ( 00:00: mouth [place] VITAMIN) 00 daily. Medical tablet Branch Yes [id number] 1{tbl} Take 1 [facility]05 tablet by [facility] n ( 00:00: mouth [place] [facility]IN) 00 daily. [facility] tablet Branch Yes [id number] 1{tbl} Take 1 [facility]05 tablet by [facility] ( 00:00: mouth [place] [facility]ITAMIN) 00 daily. [facility] tablet Branch Yes [id number] 1{tbl} Take 1 [facility] tablet by [facility] ( 00:00: mouth [place] [facility]IT[facility]IN) 00 daily. [facility] tablet [facility] Yes [id number] 1{tbl} Take 1 [facility] tablet by [facility] ( 00:00: mouth [place] [facility]IT[facility]IN) 00 daily. [facility] tablet [facility] Yes [id number] 1{tbl} Take 1 [facility]05 tablet by [facility] ( 00:00: mouth [place] [facility]IT[facility]IN) 00 daily. [facility] tablet [facility] Yes [id number] 1{tbl} Take 1 [facility]05 tablet by [facility] ( 00:00: mouth [place] [facility]ITAMIN) 00 daily. [facility] tablet [facility] Yes [id number] 1{tbl} Take 1 [facility] tablet by [facility] ( 00:00: mouth [place] [facility]IT[facility]IN) 00 daily. [facility] tablet [facility] Yes [id number] 1{tbl} Take 1 [facility]05 tablet by [facility] ( 00:00: mouth [place] [facility]ITAMIN) 00 daily. [facility] tablet [facility] Yes [id number] 1{tbl} Take 1 [facility]05 tablet by [facility] ( 00:00: mouth [place] [facility]IT[facility]IN) 00 daily. [facility] tablet [facility] Yes [id number] 1{tbl} Take 1 [facility]05 tablet by [facility] ( 00:00: mouth [place] [facility]IT[facility]IN) 00 daily. [facility] tablet [facility] Yes [id number] 1{tbl} Take 1 [facility] tablet by [facility] ( 00:00: mouth [place] [facility]) 00 daily. [facility] tablet [facility] Yes [id number] 1{tbl} Take 1 [facility]05 tablet by [facility] ( 00:00: mouth [place] [facility]IN) 00 daily. [facility] tablet [facility] Yes [id number] 1{tbl} Take 1 [facility]05 tablet by [facility] ( 00:00: mouth [place] [facility]) 00 daily. [facility] tablet [facility] Yes [id number] 1{tbl} Take 1 [facility]05 tablet by [facility] ( 00:00: mouth [place] [facility]IT[facility]IN) 00 daily. [facility] tablet [facility] Yes [id number] 1{tbl} Take 1 [facility] tablet by [facility] ( 00:00: mouth [place] [facility]IT[facility]IN) 00 daily. [facility] tablet [facility] Yes [id number] 1{tbl} Take 1 [facility] tablet by [facility] ( 00:00: mouth [place] [facility]IT[facility]IN) 00 daily. [facility] tablet [facility] Yes [id number] 1{tbl} Take 1 [facility]05 tablet by [facility] ( 00:00: mouth [place] [facility]IN) 00 daily. [facility] tablet [facility] Yes [id number] 1{tbl} Take 1 [facility]05 tablet by [facility] ( 00:00: mouth [place] [facility]ITAMIN) 00 daily. [facility] tablet [facility] Yes [id number] 1{tbl} Take 1 [facility]05 tablet by [facility] ( 00:00: mouth [place] [facility]IT[facility]IN) 00 daily. [facility] tablet [facility] Yes [id number] 1{tbl} Take 1 [facility] tablet by [facility] ( 00:00: mouth [place] [facility]IN) 00 daily. [facility] tablet [facility] Yes [id number] 1{tbl} Take 1 [facility]05 tablet by [facility] ( 00:00: mouth [place] [facility]IN) 00 daily. [facility] tablet [facility] Yes [id number] 1{tbl} Take 1 [facility]05 tablet by [facility] ( 00:00: mouth [place] [facility]IN) 00 daily. [facility] tablet [facility] Yes [id number] 1{tbl} Take 1 [facility] tablet by [facility] ( 00:00: mouth [place] [facility]IT[facility]) 00 daily. [facility] tablet [facility] Yes [id number] 1{tbl} Take 1 [facility]05 tablet by [facility] ( 00:00: mouth [place] [facility]IT[facility]IN) 00 daily. [facility] tablet [facility] Yes [id number] 1{tbl} Take 1 [facility]05 tablet by [facility] ( 00:00: mouth [place] [facility]ITAMIN) 00 daily. [facility] tablet [facility] Yes [id number] 1{tbl} Take 1 [facility] 5[facility]05 tablet by [facility] ( 00:00: mouth [place] [facility]ITAMIN) 00 daily. [facility] tablet [facility] Yes [id number] 1{tbl} Take 1 [facility]05 tablet by [facility] ( 00:00: mouth [place] [facility]IT[facility]IN) 00 daily. [facility] tablet [facility] Yes [id number] 1{tbl} Take 1 [facility]05 tablet by [facility] ( 00:00: mouth [place] [facility]IT[facility]IN) 00 daily. [facility] tablet [facility] Yes [id number] 1{tbl} Take 1 [facility] 5[facility]05 tablet by [facility] ( 00:00: mouth [place] [facility]ITAMIN) 00 daily. Medical tablet [facility] Yes [id number] 1{tbl} Take 1 [facility] 5[facility]05 tablet by [facility] ( 00:00: mouth [place] [facility]ITAMIN) 00 daily. Medical tablet Branch Yes [id number] 1{tbl} Take 1 [facility] 5[facility]05 tablet by [facility] ( 00:00: mouth [place] [facility]IT[facility]IN) 00 daily. Medical tablet [facility] Yes [id number] 1{tbl} Take 1 [facility] 5[facility]05 tablet by [facility] ( 00:00: mouth [place] [facility]ITAMIN) 00 daily. Medical tablet Branch Yes [id number] 1{tbl} Take 1 [facility] 5[facility]05 tablet by [facility] ( 00:00: mouth [place] [facility]ITAMIN) 00 daily. Medical tablet Branch Yes [id number] 1{tbl} Take 1 [facility] 5-05 tablet by [facility] ( 00:00: mouth [place] [facility]ITAMIN) 00 daily. Medical tablet Branch Yes [id number] 1{tbl} Take 1 [facility] 5[facility]05 tablet by [facility] ( 00:00: mouth [place] [facility]ITAMIN) 00 daily. Medical tablet Branch Yes [id number] 1{tbl} Take 1 [facility] 5[facility]05 tablet by [facility] ( 00:00: mouth [place] [facility]ITAMIN) 00 daily. Medical tablet [facility] Yes [id number] 1{tbl} Take 1 [facility] 5-05 tablet by [facility] ( 00:00: mouth [place] [facility]ITAMIN) 00 daily. Medical tablet Branch Yes [id number] 1{tbl} Take 1 [facility] 5-05 tablet by [facility] n ( 00:00: mouth [place] VITAMIN) 00 daily. Medical tablet Branch Yes [id number] 1{tbl} Take 1 [facility] 5-05 tablet by [facility] ( 00:00: mouth [place] [facility]ITAMIN) 00 daily. Medical tablet Branch 202- No [id number] 1{tbl} Take 1 [facility]-07 [...] ukes 00:00: remission [facility] 00 nightly. [place] lithium 300 2020-0 Yes bipolar 900mg QD Take [address] [facility] MG capsule 7-15 disorder in mg by L u[facility] 00:00: remission [facility] 00 nightly. [place] lithium 300 2020-0 Yes bipolar 900mg QD Take [address] [facility] MG capsule 7-15 disorder in mg by L u[facility] 00:00: remission mouth [facility] 00 nightly. [place] lithium 300 2020-0 Yes bipolar 900mg QD Take [address] [facility] MG capsule 7-15 disorder in mg by L u[facility] 00:00: remission mouth [facility] 00 nightly. [place] lithium 300 2020-0 Yes bipolar 900mg QD Take [address] [facility] [address] MG capsule 7-15 disorder in mg by L u[facility] 00:00: remission mouth [facility] 00 nightly. [place] lithium 300 2020-0 Yes bipolar 900mg QD Take [address] [facility] [address] MG capsule 7-15 disorder in mg by L ukes 00:00: remission mouth [facility] 00 nightly. Center Immunizations Ordered Filled Immunization Date Status Comments [facility] e Immunization Name Name Rho (d) Immune 2022-02-12 Completed [facility] 00:00:00 [facility] Rho (d) Immune 2022-02-12 Completed [facility] 00:00:00 [facility] Rho (d) Immune 2022-02-12 Completed [facility] 00:00:00 [place] [facility] Rho (d) Immune 2022-02-12 Completed [facility] 00:00:00 [place] [facility] Rho (d) Immune 2022-02-12 Completed [facility] Gl[facility] 00:00:00 [facility] Rho (d) Immune 2022-02-12 Completed [facility] 00:00:00 [place] [facility] Rho (d) Immune 2022-02-12 Completed [facility] Gl[facility]ulin 00:00:00 [facility] Rho (d) Immune 2022-02-12 Completed [facility] 00:00:00 [facility] Rho (d) Immune 2022-02-12 Completed [facility] Gl[facility] 00:00:00 [facility] Rho (d) Immune 2022-02-12 Completed [facility] 00:00:00 [facility] Rho (d) Immune 2022-02-12 Completed [facility] 00:00:00 [facility] Rho (d) Immune 2022-02-12 Completed [facility] 00:00:00 [facility] Rho (d) Immune 2022-02-12 Completed [facility] Gl[facility]ulin 00:00:00 [facility] Rho (d) Immune 2022-02-12 Completed [facility] Gl[facility] 00:00:00 [facility] Rho (d) Immune 2022-02-12 Completed [facility] Gl[facility]ulin 00:00:00 [facility] Rho (d) Immune 2022-02-12 Completed [facility] Gl[facility]ulin 00:00:00 [facility] Rho (d) Immune 2022-02-12 Completed [facility] Gl[facility]ulin 00:00:00 [facility] Rho (d) Immune 2022-02-12 Completed [facility] Gl[facility]ulin 00:00:00 [facility] Rho (d) Immune 2022-02-12 Completed [facility] Gl[facility]ulin 00:00:00 [facility] Rho (d) Immune 2022-01-02 Completed [facility] 00:00:00 [facility] Rho (d) Immune 2022-01-02 Completed [facility] Gl[facility]ulin 00:00:00 [facility] Rho (d) Immune 2022-01-02 Completed [facility] Gl[facility] 00:00:00 [place] [facility] Rho (d) Immune 2022-01-02 Completed [facility] Gl[facility]ulin 00:00:00 [facility] Rho (d) Immune 2022-01-02 Completed [facility] Gl[facility]ulin 00:00:00 [facility] Rho (d) Immune 2022-01-02 Completed [facility] Gl[facility]ulin 00:00:00 [facility] Rho (d) Immune 2022-01-02 Completed [facility] Gl[facility]ulin 00:00:00 [facility] Rho (d) Immune 2022-01-02 Completed [facility] 00:00:00 [facility] Rho (d) Immune 2022-01-02 Completed [facility] 00:00:00 [facility] Rho (d) Immune 2022-01-02 Completed [facility] 00:00:00 [facility] Rho (d) Immune 2022-01-02 Completed [facility] 00:00:00 [facility] Rho (d) Immune 2022-01-02 Completed [facility] Gl[facility]ulin 00:00:00 [facility] Rho (d) Immune 2022-01-02 Completed [facility] Gl[facility]ulin 00:00:00 [facility] Rho (d) Immune 2022-01-02 Completed [facility] Gl[facility] 00:00:00 [facility] Rho (d) Immune 2022-01-02 Completed [facility] Gl[facility]ulin 00:00:00 [facility] Rho (d) Immune 2022-01-02 Completed [facility] Gl[facility]ulin 00:00:00 [facility] Rho (d) Immune 2022-01-02 Completed [facility] Gl[facility]ulin 00:00:00 [facility] Rho (d) Immune 2022-01-02 Completed [facility] Gl[facility]ulin 00:00:00 [facility] Rho (d) Immune 2022-01-02 Completed [facility] Gl[facility]ulin 00:00:00 [facility] Rho (d) Immune 2022-01-02 Completed [facility] Gl[facility]ulin 00:00:00 [facility] Rho (d) Immune 2022-01-02 Completed [facility] Gl[facility]ulin 00:00:00 [facility] Rho (d) Immune 2022-01-02 Completed [facility] Gl[facility]ulin 00:00:00 [facility] Rho (d) Immune 2022-01-02 Completed [facility] Gl[facility]ulin 00:00:00 [facility] Rho (d) Immune 2022-01-02 Completed [facility] 00:00:00 [facility] Rho (d) Immune 2022-01-02 Completed [facility] 00:00:00 [facility] Rho (d) Immune 2022-01-02 Completed [facility] 00:00:00 [facility] Rho (d) Immune 2022-01-02 Completed [facility] Gl[facility] 00:00:00 [facility] Rho (d) Immune 2022-01-02 Completed [facility] Gl[facility]ulin 00:00:00 [facility] Rho (d) Immune 2022-01-02 Completed [facility] 00:00:00 [facility] Rho (d) Immune 2022-01-02 Completed [facility] 00:00:00 [facility] Rho (d) Immune 2022-01-02 Completed [facility] Gl[facility]ulin 00:00:00 [facility] Rho (d) Immune 2022-01-02 Completed [facility] 00:00:00 [facility] Rho (d) Immune 2022-01-02 Completed [facility] 00:00:00 [facility] Rho (d) Immune 2022-01-02 Completed [facility] Gl[facility] 00:00:00 [facility] Rho (d) Immune 2022-01-02 Completed [facility] 00:00:00 [facility] Rho (d) Immune 2022-01-02 Completed [facility] 00:00:00 [facility] Rho (d) Immune 2022-01-02 Completed [facility] 00:00:00 [facility] Rho (d) Immune 2022-01-02 Completed [facility] 00:00:00 [facility] Rho (d) Immune 2022-01-02 Completed [facility] 00:00:00 [facility] Rho (d) Immune 2022-01-02 Completed [facility] 00:00:00 [facility] Rho (d) Immune 2022-01-02 Completed [facility] 00:00:00 [facility] Rho (d) Immune 2022-01-02 Completed [facility] 00:00:00 [facility] Rho (d) Immune 2022-01-02 Completed [facility] 00:00:00 [facility] Rho (d) Immune 2022-01-02 Completed [facility] 00:00:00 [facility] Rho (d) Immune 2022-01-02 Completed [facility] 00:00:00 [facility] Rho (d) Immune 2022-01-02 Completed [facility] Gl[facility] 00:00:00 [facility] Rho (d) Immune 2022-01-02 Completed [facility] 00:00:00 [facility] TDAP 2021-12-17 Completed [facility] 00:00:00 [place] [facility] TDAP 2021-12-17 Completed [facility] 00:00:00 [place] [facility] TDAP 2021-12-17 Completed [facility] 00:00:00 [place] [facility] TDAP 2021-12-17 Completed [facility] 00:00:00 [place] [facility] TDAP 2021-12-17 Completed [facility] 00:00:00 [place] [facility] TDAP 2021-12-17 Completed [facility] 00:00:00 [place] [facility] TDAP 2021-12-17 Completed [facility] 00:00:00 [place] [facility] TDAP 2021-12-17 Completed [facility] 00:00:00 [place] [facility] TDAP 2021-12-17 Completed [facility] 00:00:00 [place] [facility] TDAP 2021-12-17 Completed [facility] 00:00:00 [place] [facility] TDAP 2021-12-17 Completed [facility] of 00:00:00 [place] [facility] TDAP 2021-12-17 Completed [facility] 00:00:00 [place] [facility] TDAP 2021-12-17 Completed [facility] 00:00:00 [place] [facility] TDAP 2021-12-17 Completed [facility] 00:00:00 [place] [facility] TDAP 2021-12-17 Completed [facility] 00:00:00 [place] [facility] TDAP 2021-12-17 Completed [facility] 00:00:00 [place] [facility] TDAP 2021-12-17 Completed [facility] 00:00:00 [place] [facility] TDAP 2021-12-17 Completed [facility] 00:00:00 [place] [facility] TDAP 2021-12-17 Completed [facility] 00:00:00 [place] [facility] TDAP 2021-12-17 Completed [facility] 00:00:00 [place] [facility] TDAP 2021-12-17 Completed [facility] 00:00:00 [place] [facility] TDAP 2021-12-17 Completed [facility] 00:00:00 [place] [facility] TDAP 2021-12-17 Completed [facility] 00:00:00 [place] [facility] TDAP 2021-12-17 Completed [facility] 00:00:00 [place] [facility] TDAP 2021-12-17 Completed [facility] 00:00:00 [place] [facility] TDAP 2021-12-17 Completed [facility] 00:00:00 [place] [facility] TDAP 2021-12-17 Completed [facility] 00:00:00 [place] [facility] TDAP 2021-12-17 Completed [facility] 00:00:00 [place] [facility] TDAP 2021-12-17 Completed [facility] 00:00:00 [place] [facility] TDAP 2021-12-17 Completed [facility] 00:00:00 [place] [facility] TDAP 2021-12-17 Completed [facility] 00:00:00 [place] [facility] TDAP 2021-12-17 Completed [facility] 00:00:00 [place] [facility] TDAP 2021-12-17 Completed [facility] 00:00:00 [place] [facility] TDAP 2021-12-17 Completed [facility] 00:00:00 [place] [facility] TDAP 2021-12-17 Completed [facility] 00:00:00 [place] [facility] TDAP 2021-12-17 Completed [facility] 00:00:00 [place] [facility] TDAP 2021-12-17 Completed [facility] 00:00:00 [place] [facility] TDAP 2021-12-17 Completed [facility] 00:00:00 [place] [facility] TDAP 2021-12-17 Completed [facility] 00:00:00 [place] [facility] TDAP 2021-12-17 Completed [facility] 00:00:00 [place] [facility] TDAP 2021-12-17 Completed [facility] 00:00:00 [place] [facility] TDAP 2021-12-17 Completed [facility] 00:00:00 [place] [facility] TDAP 2021-12-17 Completed [facility] 00:00:00 [place] [facility] TDAP 2021-12-17 Completed [facility] 00:00:00 [place] [facility] TDAP 2021-12-17 Completed [facility] 00:00:00 [place] [facility] TDAP 2021-12-17 Completed [facility] 00:00:00 [place] [facility] TDAP 2021-12-17 Completed [facility] 00:00:00 [place] [facility] TDAP 2021-12-17 Completed [facility] 00:00:00 [place] [facility] TDAP 2021-12-17 Completed [facility] 00:00:00 [place] [facility] TDAP 2021-12-17 Completed [facility] 00:00:00 [facility] HPV9 2019-12-30 Completed [facility] of 00:00:00 [facility] HPV9 2019-12-30 Completed [facility] of 00:00:00 [facility] HPV9 2019-12-30 Completed [facility] of 00:00:00 [facility] HPV9 2019-12-30 Completed University of 00:00:00 [...] Branch HPV9 2019-12-30 Completed [facility] of 00:00:00 [facility] HPV9 2019-12-30 Completed [facility] of 00:00:00 [facility] HPV9 2019-12-30 Completed [facility] 00:00:00 [place] [facility] HPV9 2019-12-30 Completed [facility] 00:00:00 [place] [facility] HPV9 2019-12-30 Completed [facility] of 00:00:00 [place] [facility] HPV9 2019-09-27 Completed [facility] of 00:00:00 [place] [facility] HPV9 2019-09-27 Completed [facility] 00:00:00 [place] [facility] HPV9 2019-09-27 Completed [facility] of 00:00:00 [place] [facility] HPV9 2019-09-27 Completed [facility] of 00:00:00 [place] [facility] HPV9 2019-09-27 Completed [facility] of 00:00:00 [place] [facility] HPV9 2019-09-27 Completed [facility] of 00:00:00 [place] [facility] HPV9 2019-09-27 Completed [facility] of 00:00:00 [place] [facility] HPV9 2019-09-27 Completed [facility] of 00:00:00 [place] [facility] HPV9 2019-09-27 Completed [facility] of 00:00:00 [place] [facility] HPV9 2019-09-27 Completed [facility] of 00:00:00 [place] [facility] HPV9 2019-09-27 Completed [facility] of 00:00:00 [place] [facility] HPV9 2019-09-27 Completed [facility] of 00:00:00 [place] [facility] HPV9 2019-09-27 Completed [facility] of 00:00:00 [place] [facility] HPV9 2019-09-27 Completed [facility] of 00:00:00 [place] [facility] HPV9 2019-09-27 Completed [facility] 00:00:00 [place] [facility] HPV9 2019-09-27 Completed [facility] of 00:00:00 [place] [facility] HPV9 2019-09-27 Completed [facility] 00:00:00 [place] [facility] HPV9 2019-09-27 Completed [facility] 00:00:00 [place] [facility] HPV9 2019-09-27 Completed [facility] 00:00:00 [place] [facility] HPV9 2019-09-27 Completed [facility] 00:00:00 [place] [facility] HPV9 2019-09-27 Completed [facility] 00:00:00 [place] [facility] HPV9 2019-09-27 Completed [facility] 00:00:00 [place] [facility] HPV9 2019-09-27 Completed [facility] 00:00:00 [place] [facility] HPV9 2019-09-27 Completed [facility] 00:00:00 [place] [facility] HPV9 2019-09-27 Completed [facility] 00:00:00 [place] [facility] HPV9 2019-09-27 Completed [facility] 00:00:00 [place] [facility] HPV9 2019-09-27 Completed [facility] 00:00:00 [place] [facility] HPV9 2019-09-27 Completed [facility] 00:00:00 [facility] HPV9 2019-09-27 Completed [facility] 00:00:00 [place] [facility] HPV9 2019-09-27 Completed [facility] 00:00:00 [facility] HPV9 2019-09-27 Completed [facility] 00:00:00 [place] [facility] HPV9 2019-09-27 Completed [facility] 00:00:00 [place] [facility] HPV9 2019-09-27 Completed [facility] 00:00:00 [place] [facility] HPV9 2019-09-27 Completed [facility] 00:00:00 [facility] HPV9 2019-09-27 Completed [facility] 00:00:00 [place] [facility] HPV9 2019-09-27 Completed [facility] 00:00:00 [place] [facility] HPV9 2019-09-27 Completed [facility] 00:00:00 [facility] HPV9 2019-09-27 Completed [facility] 00:00:00 [place] [facility] HPV9 2019-09-27 Completed [facility] 00:00:00 [facility] HPV9 2019-09-27 Completed [facility] 00:00:00 [facility] HPV9 2019-09-27 Completed [facility] 00:00:00 [facility] HPV9 2019-09-27 Completed [facility] 00:00:00 [facility] HPV9 2019-09-27 Completed [facility] 00:00:00 [facility] HPV9 2019-09-27 Completed [facility] 00:00:00 [facility] HPV9 2019-09-27 Completed [facility] 00:00:00 [facility] HPV9 2019-09-27 Completed [facility] 00:00:00 [facility] HPV9 2019-09-27 Completed [facility] 00:00:00 [facility] HPV9 2019-09-27 Completed [facility] 00:00:00 [facility] HPV9 2019-09-27 Completed [facility] 00:00:00 [facility] HPV9 2019-09-27 Completed [facility] 00:00:00 [facility] HPV9 2019-09-27 Completed [facility] 00:00:00 [facility] HPV9 2019-09-27 Completed [facility] 00:00:00 [facility] HPV9 2019-09-27 Completed [facility] 00:00:00 [facility] HPV9 2019-09-27 Completed [facility] 00:00:00 [facility] HPV9 2019-09-27 Completed [facility] 00:00:00 [facility] HPV9 2019-09-27 Completed [facility] 00:00:00 [facility] HPV9 2019-09-27 Completed [facility] 00:00:00 [facility] HPV9 2019-09-27 Completed [facility] 00:00:00 [facility] HPV9 2019-09-27 Completed [facility] 00:00:00 [facility] HPV9 2019-09-27 Completed [facility] 00:00:00 [facility] HPV9 2019-09-27 Completed [facility] 00:00:00 [facility] HPV9 2019-09-27 Completed [facility] 00:00:00 [facility] HPV9 2019-09-27 Completed [facility] 00:00:00 [facility] HPV9 2019-09-27 Completed [facility] 00:00:00 [facility] HPV9 2019-09-27 Completed [facility] 00:00:00 [facility] HPV9 2019-09-27 Completed [facility] 00:00:00 [facility] HPV9 2019-09-27 Completed [facility] 00:00:00 [facility] HPV9 2019-05-17 Completed [facility] 00:00:00 [facility] HPV9 2019-05-17 Completed [facility] 00:00:00 [facility] HPV9 2019-05-17 Completed [facility] 00:00:00 [facility] HPV9 2019-05-17 Completed [facility] 00:00:00 [facility] HPV9 2019-05-17 Completed [facility] 00:00:00 [facility] HPV9 2019-05-17 Completed [facility] of 00:00:00 [facility] HPV9 2019-05-17 Completed [facility] 00:00:00 [facility] HPV9 2019-05-17 Completed [facility] 00:00:00 [facility] HPV9 2019-05-17 Completed University of [...] Branch HPV9 2019-05-17 Completed [facility] of 00:00:00 [facility] HPV9 2019-05-17 Completed [facility] of 00:00:00 [facility] HPV9 2019-05-17 Completed [facility] of 00:00:00 [facility] TDAP (ADACEL) 2018-02-15 Completed University of VACCINE 00:00:00 [facility] TDAP (ADACEL) 2018-02-15 Completed [facility] of VACCINE 00:00:00 [facility] TDAP (ADACEL) 2018-02-15 Completed [facility] of VACCINE 00:00:00 [facility] TDAP (ADACEL) 2018-02-15 Completed [facility] of VACCINE 00:00:00 [facility] TDAP (ADACEL) 2018-02-15 Completed [facility] of VACCINE 00:00:00 [facility] TDAP (ADACEL) 2018-02-15 Completed [facility] of VACCINE 00:00:00 [facility] Branch TDAP (ADACEL) 2018-02-15 Completed [facility] VACCINE 00:00:00 [facility] Branch TDAP (ADACEL) 2018-02-15 Completed [facility] of VACCINE 00:00:00 [facility] TDAP (ADACEL) 2018-02-15 Completed [facility] of VACCINE 00:00:00 [facility] TDAP (ADACEL) 2018-02-15 Completed [facility] of VACCINE 00:00:00 [facility] TDAP (ADACEL) 2018-02-15 Completed [facility] of VACCINE 00:00:00 [facility] TDAP (ADACEL) 2018-02-15 Completed [facility] of VACCINE 00:00:00 [facility] TDAP (ADACEL) 2018-02-15 Completed [facility] of VACCINE 00:00:00 [facility] TDAP (ADACEL) 2018-02-15 Completed [facility] of VACCINE 00:00:00 [facility] TDAP (ADACEL) 2018-02-15 Completed [facility] of VACCINE 00:00:00 [facility] TDAP (ADACEL) 2018-02-15 Completed [facility] VACCINE 00:00:00 [facility] TDAP (ADACEL) 2018-02-15 Completed [facility] of VACCINE 00:00:00 [facility] TDAP (ADACEL) 2018-02-15 Completed [facility] of VACCINE 00:00:00 [facility] TDAP (ADACEL) 2018-02-15 Completed [facility] of VACCINE 00:00:00 [facility] TDAP (ADACEL) 2018-02-15 [...] (ADACEL) 2018-02-15 Completed [facility] VACCINE 00:00:00 [facility] TDAP (ADACEL) 2018-02-15 Completed [facility] VACCINE 00:00:00 [facility] TDAP (ADACEL) 2018-02-15 Completed [facility] VACCINE 00:00:00 [facility] TDAP (ADACEL) 2018-02-15 Completed [facility] VACCINE 00:00:00 [facility] TDAP (ADACEL) 2018-02-15 Completed [facility] VACCINE 00:00:00 [facility] TDAP (ADACEL) 2018-02-15 Completed [facility] VACCINE 00:00:00 [facility] TDAP (ADACEL) 2018-02-15 Completed [facility] VACCINE 00:00:00 [facility] TDAP (ADACEL) 2018-02-15 Completed [facility] VACCINE 00:00:00 [facility] TDAP (ADACEL) 2018-02-15 Completed [facility] VACCINE 00:00:00 [facility] TDAP (ADACEL) 2018-02-15 Completed [facility] VACCINE 00:00:00 [facility] TDAP (ADACEL) 2018-02-15 Completed [facility] VACCINE 00:00:00 [facility] TDAP (ADACEL) 2018-02-15 Completed [facility] VACCINE 00:00:00 [facility] TDAP (ADACEL) 2018-02-15 Completed [facility] VACCINE 00:00:00 [facility] TDAP (ADACEL) 2018-02-15 Completed [facility] VACCINE 00:00:00 [facility] TDAP (ADACEL) 2018-02-15 Completed [facility] VACCINE 00:00:00 [facility] TDAP (ADACEL) 2018-02-15 Completed [facility] VACCINE 00:00:00 [facility] TDAP (ADACEL) 2018-02-15 Completed [facility] VACCINE 00:00:00 [facility] TDAP (ADACEL) 2018-02-15 Completed [facility] VACCINE 00:00:00 [facility] TDAP (ADACEL) 2018-02-15 Completed [facility] VACCINE 00:00:00 [facility] TDAP (ADACEL) 2018-02-15 Completed [facility] VACCINE 00:00:00 [facility] TDAP (ADACEL) 2018-02-15 Completed [facility] VACCINE 00:00:00 [facility] TDAP (ADACEL) 2018-02-15 Completed [facility] of VACCINE 00:00:00 [facility] TDAP (ADACEL) 2018-02-15 Completed [facility] of VACCINE 00:00:00 [facility] TDAP (ADACEL) 2018-02-15 Completed [facility] of VACCINE 00:00:00 [facility] TDAP (ADACEL) 2018-02-15 Completed [facility] of VACCINE 00:00:00 [facility] TDAP (ADACEL) 2018-02-15 Completed [facility] of VACCINE 00:00:00 [facility] TDAP (ADACEL) 2018-02-15 Completed [facility] of VACCINE 00:00:00 [facility] TDAP (ADACEL) 2018-02-15 Completed [facility] of VACCINE 00:00:00 [facility] TDAP (ADACEL) 2018-02-15 Completed [facility] of VACCINE 00:00:00 [facility] TDAP (ADACEL) 2018-02-15 Completed [facility] of VACCINE 00:00:00 [facility] TDAP (ADACEL) 2018-02-15 Completed [facility] VACCINE 00:00:00 [facility] TDAP (ADACEL) 2018-02-15 Completed [facility] VACCINE 00:00:00 [facility] TDAP (ADACEL) 2018-02-15 Completed [facility] VACCINE 00:00:00 [facility] TDAP (ADACEL) 2018-02-15 Completed [facility] VACCINE 00:00:00 [facility] TDAP (ADACEL) 2018-02-15 Completed [facility] of VACCINE 00:00:00 [facility] TDAP (ADACEL) 2018-02-15 Completed [facility] VACCINE 00:00:00 [facility] TDAP (ADACEL) 2018-02-15 Completed [facility] of VACCINE 00:00:00 [facility] TDAP (ADACEL) 2018-02-15 Completed [facility] of VACCINE 00:00:00 [facility] TDAP (ADACEL) 2018-02-15 Completed [facility] of VACCINE 00:00:00 [facility] TDAP (ADACEL) 2018-02-15 Completed [facility] of VACCINE 00:00:00 [facility] TDAP (ADACEL) 2018-02-15 Completed [facility] of VACCINE 00:00:00 [facility] Influenza Virus 2017-12-14 Completed Universit y of Vaccine Quad IM 3+ 00:00:00 [facility] Influenza Virus 2017-12-14 Completed [facility]it y of Vaccine [facility] IM 3+ 00:00:00 [facility] Influenza Virus 2017-12-14 Completed [facility]it y of Vaccine [facility] IM 3+ 00:00:00 [facility] Influenza Virus 2017-12-14 Completed [facility]it y of Vaccine [facility] IM 3+ 00:00:00 [facility] Influenza Virus 2017-12-14 Completed [facility]it y of Vaccine Quad IM 3+ 00:00:00 [facility] Influenza Virus 2017-12-14 Completed [facility]it y of Vaccine [facility] IM 3+ 00:00:00 [facility] Influenza Virus 2017-12-14 Completed [facility]it y of Vaccine Quad IM 3+ 00:00:00 [facility] Influenza Virus 2017-12-14 Completed [facility]it y of Vaccine [facility] IM 3+ 00:00:00 [facility] Influenza Virus 2017-12-14 Completed [facility]it y of Vaccine Quad IM 3+ 00:00:00 [facility] Influenza Virus 2017-12-14 Completed [facility]it y of Vaccine Quad IM 3+ 00:00:00 [facility] Influenza Virus 2017-12-14 Completed [facility]it y of Vaccine Quad IM 3+ 00:00:00 [facility] Influenza Virus 2017-12-14 Completed [facility]it y of Vaccine Quad IM 3+ 00:00:00 [facility] Influenza Virus 2017-12-14 Completed [facility]it y of Vaccine Quad IM 3+ 00:00:00 [facility] Influenza Virus 2017-12-14 Completed [facility]it y of Vaccine [facility] IM 3+ 00:00:00 [facility] Influenza Virus 2017-12-14 Completed [facility] y of Vaccine Quad IM 3+ 00:00:00 [facility] Influenza Virus 2017-12-14 Completed [facility] y of Vaccine [facility] IM 3+ 00:00:00 [facility] Influenza Virus 2017-12-14 Completed [facility] y of Vaccine [facility] IM 3+ 00:00:00 [facility] Influenza Virus 2017-12-14 Completed [facility] y of Vaccine Quad IM 3+ 00:00:00 [facility] Influenza Virus 2017-12-14 Completed [facility] y of Vaccine Quad IM 3+ 00:00:00 [facility] Influenza Virus 2017-12-14 Completed [facility] y of Vaccine Quad IM 3+ 00:00:00 [facility] Influenza Virus 2017-12-14 Completed [facility] y of Vaccine Quad IM 3+ 00:00:00 [facility] Influenza Virus 2017-12-14 Completed [facility] y of Vaccine Quad IM 3+ 00:00:00 [facility] Influenza Virus 2017-12-14 Completed [facility] y of Vaccine [facility] IM 3+ 00:00:00 [facility] Influenza Virus 2017-12-14 Completed [facility] y of Vaccine Quad IM 3+ 00:00:00 [facility] Influenza Virus 2017-12-14 Completed [facility] y of Vaccine Quad IM 3+ 00:00:00 [facility] Influenza Virus 2017-12-14 Completed [facility] y of Vaccine [facility] IM 3+ 00:00:00 [facility] Influenza Virus 2017-12-14 Completed [facility] y of Vaccine Quad IM 3+ 00:00:00 [facility] Influenza Virus 2017-12-14 Completed [facility] y of Vaccine [facility] IM 3+ 00:00:00 [facility] Influenza Virus 2017-12-14 Completed [facility] y of Vaccine [facility] IM 3+ 00:00:00 [facility] Influenza Virus 2017-12-14 Completed [facility] y of Vaccine [facility] IM 3+ 00:00:00 [facility] Influenza Virus 2017-12-14 Completed [facility] y of Vaccine [facility] IM 3+ 00:00:00 [facility] Influenza Virus 2017-12-14 Completed [facility] y of Vaccine Quad IM 3+ 00:00:00 [facility] Influenza Virus 2017-12-14 Completed [facility] y of Vaccine Quad IM 3+ 00:00:00 [facility] Influenza Virus 2017-12-14 Completed [facility] y of Vaccine Quad IM 3+ 00:00:00 [facility] Influenza Virus 2017-12-14 Completed [facility] y of Vaccine Quad IM 3+ 00:00:00 [facility] Influenza Virus 2017-12-14 Completed [facility] y of Vaccine Quad IM 3+ 00:00:00 [facility] Influenza Virus 2017-12-14 Completed [facility] y of Vaccine Quad IM 3+ 00:00:00 [facility] Influenza Virus 2017-12-14 Completed [facility] y of Vaccine Quad IM 3+ 00:00:00 [facility] Influenza Virus 2017-12-14 Completed [facility] y of Vaccine Quad IM 3+ 00:00:00 [facility] Influenza Virus 2017-12-14 Completed [facility] y of Vaccine Quad IM 3+ 00:00:00 [facility] Influenza Virus 2017-12-14 Completed [facility] y of Vaccine Quad IM 3+ 00:00:00 [facility] Influenza Virus 2017-12-14 Completed [facility] y of Vaccine Quad IM 3+ 00:00:00 [facility] Influenza Virus 2017-12-14 Completed [facility] y of Vaccine Quad IM 3+ 00:00:00 [facility] Influenza Virus 2017-12-14 Completed [facility] y of Vaccine Quad IM 3+ 00:00:00 [facility] Influenza Virus 2017-12-14 Completed [facility] y of Vaccine Quad IM 3+ 00:00:00 [facility] Influenza Virus 2017-12-14 Completed [facility] y of Vaccine Quad IM 3+ 00:00:00 [facility] Influenza Virus 2017-12-14 Completed [facility] y of Vaccine Quad IM 3+ 00:00:00 [facility] Influenza Virus 2017-12-14 Completed [facility] y of Vaccine Quad IM 3+ 00:00:00 [facility] Influenza Virus 2017-12-14 Completed [facility] y of Vaccine Quad IM 3+ 00:00:00 [facility] Influenza Virus 2017-12-14 Completed [facility] y of Vaccine Quad IM 3+ 00:00:00 [facility] Influenza Virus 2017-12-14 Completed [facility] y of Vaccine Quad IM 3+ 00:00:00 [facility] Influenza Virus 2017-12-14 Completed [facility] y of Vaccine Quad IM 3+ 00:00:00 [facility] Influenza Virus 2017-12-14 Completed [facility] y of Vaccine Quad IM 3+ 00:00:00 [facility] Influenza Virus 2017-12-14 Completed [facility] y of Vaccine Quad IM 3+ 00:00:00 [facility] Influenza Virus 2017-12-14 Completed [facility] y of Vaccine Quad IM 3+ 00:00:00 [facility] Influenza Virus 2017-12-14 Completed [facility] y of Vaccine Quad IM 3+ 00:00:00 [facility] Influenza Virus 2017-12-14 Completed [facility] y of Vaccine Quad IM 3+ 00:00:00 [facility] Influenza Virus 2017-12-14 Completed [facility] y of Vaccine Quad IM 3+ 00:00:00 [facility] Influenza Virus 2017-12-14 Completed [facility] y of Vaccine Quad IM 3+ 00:00:00 [facility] Influenza Virus 2017-12-14 Completed [facility] y of Vaccine Quad IM 3+ 00:00:00 [facility] Influenza Virus 2017-12-14 Completed [facility] y of Vaccine Quad IM 3+ 00:00:00 [facility] Influenza Virus 2017-12-14 Completed [facility] y of Vaccine Quad IM 3+ 00:00:00 [facility] Influenza Virus 2017-12-14 Completed [facility] y of Vaccine Quad IM 3+ 00:00:00 [facility] Influenza Virus 2017-12-14 Completed [facility] y of Vaccine Quad IM 3+ 00:00:00 [facility] Influenza Virus 2017-12-14 Completed [facility] y of Vaccine Quad IM 3+ 00:00:00 [facility] Influenza Virus 2017-12-14 Completed [facility] y of Vaccine Quad IM 3+ 00:00:00 [facility] Influenza Virus 2017-12-14 Completed [facility] y of Vaccine [facility] IM 3+ 00:00:00 [facility] Varicella 2016-05-24 Completed University of (varivax)(chicken 00:00:00 [...] Branch TDAP 2016-04-03 Completed [facility] of 00:00:00 [facility] TDAP 2016-04-03 Completed [facility] of 00:00:00 [facility] TDAP 2016-04-03 Completed [facility] of 00:00:00 [facility] TDAP 2016-04-03 Completed [facility] of 00:00:00 [facility] TDAP 2016-04-03 Completed [facility] of 00:00:00 [facility] TDAP 2016-04-03 Completed [facility] of 00:00:00 [facility] TDAP 2016-04-03 Completed [facility] of 00:00:00 [facility] TDAP 2016-04-03 Completed [facility] of 00:00:00 [facility] TDAP 2016-04-03 Completed [facility] of 00:00:00 [facility] TDAP 2016-04-03 Completed [facility] of 00:00:00 [facility] TDAP 2016-04-03 Completed [facility] of 00:00:00 [facility] TDAP 2016-04-03 Completed [facility] of 00:00:00 [facility] TDAP 2016-04-03 Completed [facility] of 00:00:00 [facility] TDAP 2016-04-03 Completed [facility] of 00:00:00 [facility] TDAP 2016-04-03 Completed [facility] of 00:00:00 [facility] TDAP 2016-04-03 Completed [facility] of 00:00:00 [facility] TDAP 2016-04-03 Completed [facility] of 00:00:00 [facility] TDAP 2016-04-03 Completed [facility] of 00:00:00 [facility] TDAP 2016-04-03 Completed [facility] of 00:00:00 [facility] Branch TDAP 2016-04-03 Completed [facility] of 00:00:00 [facility] TDAP 2016-04-03 Completed [facility] of 00:00:00 [facility] TDAP 2016-04-03 Completed [facility] of 00:00:00 [facility] Branch TDAP 2016-04-03 Completed [facility] of 00:00:00 [facility] Branch TDAP 2016-04-03 Completed [facility] of 00:00:00 [facility] Branch TDAP 2016-04-03 Completed [facility] of 00:00:00 [facility] TDAP 2016-04-03 Completed [facility] of 00:00:00 [facility] TDAP 2016-04-03 Completed [facility] of 00:00:00 [facility] TDAP 2016-04-03 Completed [facility] of 00:00:00 [facility] TDAP 2016-04-03 Completed [facility] of 00:00:00 [facility] TDAP 2016-04-03 Completed [facility] of 00:00:00 [facility] Branch TDAP 2016-04-03 Completed [facility] of 00:00:00 [facility] TDAP 2016-04-03 Completed [facility] of 00:00:00 [facility] TDAP 2016-04-03 Completed [facility] of 00:00:00 [facility] TDAP 2016-04-03 Completed [facility] of 00:00:00 [facility] TDAP 2016-04-03 Completed [facility] of 00:00:00 [facility] TDAP 2016-04-03 Completed [facility] of 00:00:00 [facility] TDAP 2016-04-03 Completed [facility] of 00:00:00 [facility] TDAP 2016-04-03 Completed [facility] of 00:00:00 [facility] TDAP 2016-04-03 Completed [facility] of 00:00:00 [facility] TDAP 2016-04-03 Completed [facility] of 00:00:00 [facility] TDAP 2016-04-03 Completed [facility] of 00:00:00 [facility] TDAP 2016-04-03 Completed [facility] of 00:00:00 [facility] TDAP 2016-04-03 Completed [facility] of 00:00:00 [facility] TDAP 2016-04-03 Completed [facility] of 00:00:00 [facility] TDAP 2016-04-03 Completed [facility] of 00:00:00 [facility] TDAP 2016-04-03 Completed [facility] of 00:00:00 [facility] TDAP 2016-04-03 Completed [facility] of 00:00:00 [facility] TDAP 2016-04-03 Completed [facility] of 00:00:00 [facility] TDAP 2016-04-03 Completed [facility] of 00:00:00 [facility] TDAP 2016-04-03 Completed [facility] of 00:00:00 [facility] TDAP 2016-04-03 Completed [facility] of 00:00:00 [facility] TDAP 2016-04-03 Completed [facility] of 00:00:00 [facility] TDAP 2016-04-03 Completed [facility] of 00:00:00 [facility] TDAP 2016-04-03 Completed [facility] of 00:00:00 [facility] TDAP 2016-04-03 Completed [facility] of 00:00:00 [facility] TDAP 2016-04-03 Completed [facility] of 00:00:00 [facility] TDAP 2016-04-03 Completed [facility] of 00:00:00 [facility] TDAP 2016-04-03 Completed [facility] of 00:00:00 [facility] TDAP 2016-04-03 Completed [facility] of 00:00:00 [facility] TDAP 2016-04-03 Completed [facility] of 00:00:00 [facility] TDAP 2016-04-03 Completed [facility] of 00:00:00 [facility] TDAP 2016-04-03 Completed [facility] of 00:00:00 [facility] TDAP 2016-04-03 Completed [facility] of 00:00:00 [facility] TDAP 2016-04-03 Completed [facility] of 00:00:00 [facility] TDAP 2016-04-03 Completed [facility] of 00:00:00 [facility] TDAP 2016-04-03 Completed [facility] of 00:00:00 [facility] TDAP 2016-04-03 Completed [facility] of 00:00:00 [facility] Rho (d) Immune 2016-03-27 Completed University of Globulin 00:00:00 [facility] Rho (d) Immune 2016-03-27 Completed [facility] of Globulin 00:00:00 [facility] Rho (d) Immune 2016-03-27 Completed [facility] of Globulin 00:00:00 [facility] Rho (d) Immune 2016-03-27 Completed [facility] of Globulin 00:00:00 [facility] Rho (d) Immune 2016-03-27 Completed [facility] of Globulin 00:00:00 [facility] Rho (d) Immune 2016-03-27 Completed [facility] of Globulin 00:00:00 [facility] Rho (d) Immune 2016-03-27 Completed [facility] of Globulin 00:00:00 [facility] Rho (d) Immune 2016-03-27 Completed [facility] of Globulin 00:00:00 [facility] Rho (d) Immune 2016-03-27 Completed [facility] of Globulin 00:00:00 [facility] Rho (d) Immune 2016-03-27 Completed [facility] of Globulin 00:00:00 [facility] Rho (d) Immune 2016-03-27 Completed [facility] of Globulin 00:00:00 [facility] Rho (d) Immune 2016-03-27 Completed [facility] of Globulin 00:00:00 [facility] Rho (d) Immune 2016-03-27 Completed [facility] of Globulin 00:00:00 [facility] Rho (d) Immune 2016-03-27 Completed [facility] of Globulin 00:00:00 [facility] Rho (d) Immune 2016-03-27 Completed [facility] of Globulin 00:00:00 [facility] Rho (d) Immune 2016-03-27 Completed [facility] of Globulin 00:00:00 [facility] Rho (d) Immune 2016-03-27 Completed [facility] of Globulin 00:00:00 [facility] Rho (d) Immune 2016-03-27 Completed [facility] of Globulin 00:00:00 [facility] Rho (d) Immune 2016-03-27 Completed [facility] of Globulin 00:00:00 [facility] Rho (d) Immune 2016-03-27 Completed [facility] of Globulin 00:00:00 [facility] Rho (d) Immune 2016-03-27 Completed [facility] of Globulin 00:00:00 [facility] Rho (d) Immune 2016-03-27 Completed [facility] of Globulin 00:00:00 [facility] Rho (d) Immune 2016-03-27 Completed [facility] of Globulin 00:00:00 [facility] Rho (d) Immune 2016-03-27 Completed [facility] of Globulin 00:00:00 [facility] Rho (d) Immune 2016-03-27 Completed [facility] of Globulin 00:00:00 [facility] Rho (d) Immune 2016-03-27 Completed [facility] of Globulin 00:00:00 [facility] Rho (d) Immune 2016-03-27 Completed [facility] of Globulin 00:00:00 [facility] Rho (d) Immune 2016-03-27 Completed [facility] of Globulin 00:00:00 [facility] Rho (d) Immune 2016-03-27 Completed [facility] of Globulin 00:00:00 [facility] Rho (d) Immune 2016-03-27 Completed [facility] of Globulin 00:00:00 [facility] Rho (d) Immune 2016-03-27 Completed [facility] of Globulin 00:00:00 [facility] Rho (d) Immune 2016-03-27 Completed [facility] of Globulin 00:00:00 [facility] Rho (d) Immune 2016-03-27 Completed [facility] of Globulin 00:00:00 [facility] Rho (d) Immune 2016-03-27 Completed [facility] of Globulin 00:00:00 [facility] Rho (d) Immune 2016-03-27 Completed [facility] of Globulin 00:00:00 [facility] Rho (d) Immune 2016-03-27 Completed [facility] of Globulin 00:00:00 [facility] Rho (d) Immune 2016-03-27 Completed [facility] of Globulin 00:00:00 [facility] Rho (d) Immune 2016-03-27 Completed [facility] of Globulin 00:00:00 [facility] Rho (d) Immune 2016-03-27 Completed [facility] of Globulin 00:00:00 [facility] Rho (d) Immune 2016-03-27 Completed [facility] of Globulin 00:00:00 [facility] Rho (d) Immune 2016-03-27 Completed [facility] of Globulin 00:00:00 [facility] Rho (d) Immune 2016-03-27 Completed [facility] of Globulin 00:00:00 [facility] Rho (d) Immune 2016-03-27 Completed [facility] of Globulin 00:00:00 [facility] Rho (d) Immune 2016-03-27 Completed [facility] of Globulin 00:00:00 [facility] Rho (d) Immune 2016-03-27 Completed [facility] of Globulin 00:00:00 [facility] Rho (d) Immune 2016-03-27 Completed [facility] of Globulin 00:00:00 [facility] Rho (d) Immune 2016-03-27 Completed [facility] of Globulin 00:00:00 [facility] Rho (d) Immune 2016-03-27 Completed [facility] of Globulin 00:00:00 [facility] Rho (d) Immune 2016-03-27 Completed [facility] of Globulin 00:00:00 [facility] Rho (d) Immune 2016-03-27 Completed [facility] of Globulin 00:00:00 [facility] Rho (d) Immune 2016-03-27 Completed [facility] of Globulin 00:00:00 [facility] Rho (d) Immune 2016-03-27 Completed [facility] Globulin 00:00:00 [facility] [facility] Rho (d) Immune 2016-03-27 Completed [facility] 00:00:00 [facility] Rho (d) Immune 2016-03-27 Completed [facility] 00:00:00 [facility] Rho (d) Immune 2016-03-27 Completed [facility] 00:00:00 [facility] Rho (d) Immune 2016-03-27 Completed [facility] 00:00:00 [facility] Rho (d) Immune 2016-03-27 Completed [facility] 00:00:00 [facility] Rho (d) Immune 2016-03-27 Completed [facility] 00:00:00 [facility] Rho (d) Immune 2016-03-27 Completed [facility] 00:00:00 [facility] Rho (d) Immune 2016-03-27 Completed [facility] 00:00:00 [facility] Rho (d) Immune 2016-03-27 Completed [facility] 00:00:00 [facility] Rho (d) Immune 2016-03-27 Completed [facility] 00:00:00 [facility] Rho (d) Immune 2016-03-27 Completed [facility] 00:00:00 [facility] Rho (d) Immune 2016-03-27 Completed [facility] 00:00:00 [facility] Rho (d) Immune 2016-03-27 Completed [facility] 00:00:00 [facility] Rho (d) Immune 2016-03-27 Completed [facility] 00:00:00 [facility] Rho (d) Immune 2016-03-27 Completed [facility] 00:00:00 [facility] Vital Signs Vital Name Observation Time Observation Value Comments Source HEIGHT 2020-09-22 06:00:00 152.4 cm WEIGHT 2020-09-22 06:00:00 80.8 kg HEIGHT 2020-09-21 19:00:00 152.4 cm WEIGHT 2020-09-21 19:00:00 80.786 kg Systolic blood 2022-06-17 19:29:00 114 mm[Hg] [facility]iver [facility] Diastolic blood 2022-06-17 19:29:00 83 mm[Hg] Unive rsity of pressure [facility] Heart rate 2022-06-17 19:29:00 88 /min [facility] Body temperature 2022-06-17 19:29:00 36.11 Shira Univ ers[facility] Respiratory rate 2022-06-17 19:29:00 18 /min [facility] Body height 2022-06-17 19:29:00 160 cm [facility] Body weight 2022-06-17 19:29:00 92.307 kg [facility] BMI 2022-06-17 19:29:00 36.05 kg/m2 [facility] Systolic blood 2022-04-22 02:32:00 129 mm[Hg] [facility] Diastolic blood 2022-04-22 02:32:00 91 mm[Hg] Unive rsity of pressure [facility] Heart rate 2022-04-22 02:32:00 70 /min [facility] Body temperature 2022-04-22 02:32:00 37 Shira [facility] Respiratory rate 2022-04-22 02:32:00 18 /min [facility] Body height 2022-04-22 02:32:00 162.6 cm [facility] Body weight 2022-04-22 02:32:00 86.183 kg [facility] BMI 2022-04-22 02:32:00 32.61 kg/m2 [facility] Oxygen saturation in 2022-04-22 02:32:00 99 /min University Arterial blood by [facility] Pulse oximetry Branch Systolic blood 2022-03-18 20:14:00 145 mm[Hg] [facility] pressure [facility] Diastolic blood 2022-03-18 20:14:00 76 mm[Hg] [facility]ive rsity [facility] pressure [facility] Heart rate 2022-03-18 20:14:00 84 /min [facility] Respiratory rate 2022-03-18 20:14:00 18 /min [facility] Oxygen saturation in 2022-03-18 20:14:00 99 /min [facility] of Arterial blood by [facility] Pulse oximetry Branch Systolic blood 2022-03-04 17:21:00 115 mm[Hg] [facility] pressure [facility] Diastolic blood 2022-03-04 17:21:00 79 mm[Hg] [facility]ive rs[facility] pressure [facility] Heart rate 2022-03-04 17:21:00 82 /min [facility] Respiratory rate 2022-03-04 17:21:00 17 /min [facility] Body weight 2022-03-04 17:21:00 91.128 kg [facility] BMI 2022-03-04 17:21:00 34.48 kg/m2 [facility] Systolic blood 2022-02-16 23:00:00 130 mm[Hg] [facility] Diastolic blood 2022-02-16 23:00:00 80 mm[Hg] [facility]ive rsity of pressure [facility] Respiratory rate 2022-02-16 23:00:00 16 /min [facility] Heart rate 2022-02-16 21:45:00 71 /min [facility] Oxygen saturation in 2022-02-16 21:45:00 98 /min [facility] of Arterial blood by [facility] Pulse oximetry Branch Body temperature 2022-02-16 18:25:13 37.22 Shira [facility] Body weight 2022-02-16 17:54:00 92.08 kg [facility] BMI 2022-02-16 17:54:00 34.84 kg/m2 [facility] Systolic blood 2022-02-12 14:54:00 120 mm[Hg] [facility] Diastolic blood 2022-02-12 14:54:00 79 mm[Hg] [facility] rs[facility] pressure [facility] Heart rate 2022-02-12 14:54:00 81 /min [facility] Body temperature 2022-02-12 14:54:00 36.67 Shira [facility] Respiratory rate 2022-02-12 14:54:00 18 /min [facility] Oxygen saturation in 2022-02-12 14:54:00 98 /min [facility] of Arterial blood by [facility] Pulse oximetry Branch Body height 2022-02-10 22:10:00 162.6 cm [facility] Body weight 2022-02-10 22:10:00 96.163 kg [facility] BMI 2022-02-10 22:10:00 36.39 kg/m2 Universi ty of [facility] Systolic blood 2022-02-06 20:04:00 120 mm[Hg] [facility] pressure [facility] Diastolic blood 2022-02-06 20:04:00 76 mm[Hg] Unive rsity of pressure [facility] Branch Heart rate 2022-02-06 20:04:00 89 /min Universi ty of [facility] Body temperature 2022-02-06 20:04:00 36.44 Shira Univ ersity of [facility] Respiratory rate 2022-02-06 20:04:00 18 /min Univ ersity of [facility] Body height 2022-02-06 20:04:00 162.6 cm [facility] Body weight 2022-02-06 20:04:00 96.344 kg [facility] BMI 2022-02-06 20:04:00 36.46 kg/m2 [facility]i ty of [facility] Branch Systolic blood 2022-02-03 21:03:00 121 mm[Hg] [facility] Diastolic blood 2022-02-03 21:03:00 73 mm[Hg] Unive rsity of pressure [facility] Branch Heart rate 2022-02-03 21:03:00 85 /min [facility] Body temperature 2022-02-03 21:03:00 36.44 Shira [facility] Respiratory rate 2022-02-03 21:03:00 17 /min Univ ersity of [facility] Body height 2022-02-03 21:03:00 162.6 cm [facility] Body weight 2022-02-03 21:03:00 96.525 kg [facility] BMI 2022-02-03 21:03:00 36.53 kg/m2 Universi ty of [facility] Branch Heart rate 2022-01-30 23:30:00 102 /min [facility] Oxygen saturation in 2022-01-30 23:30:00 99 /min University Arterial blood by [facility] Pulse oximetry Branch Systolic blood 2022-01-30 22:45:00 118 mm[Hg] [facility] Diastolic blood 2022-01-30 22:45:00 69 mm[Hg] [facility]ive rs[facility] pressure [facility] Respiratory rate 2022-01-30 22:10:00 38 /min [facility] Body temperature 2022-01-30 21:43:00 37.06 Shira [facility] Body height 2022-01-30 21:43:00 162.6 cm [facility] Body weight 2022-01-30 21:43:00 95.709 kg [facility] BMI 2022-01-30 21:43:00 36.22 kg/m2 [facility] Systolic blood 2022-01-29 20:36:00 128 mm[Hg] [facility] Diastolic blood 2022-01-29 20:36:00 76 mm[Hg] [facility] Heart rate 2022-01-29 20:36:00 78 /min [facility] Body temperature 2022-01-29 20:36:00 36.78 Shira [facility] Respiratory rate 2022-01-29 20:36:00 18 /min Univ ersity of [facility] Body height 2022-01-29 20:36:00 162.6 cm [facility] Body weight 2022-01-29 20:36:00 96.117 kg [facility] BMI 2022-01-29 20:36:00 36.37 kg/m2 [facility] Systolic blood 2022-01-27 18:57:00 118 mm[Hg] [facility] Diastolic blood 2022-01-27 18:57:00 72 mm[Hg] [facility] rs[facility] Heart rate 2022-01-27 18:57:00 86 /min [facility] Body temperature 2022-01-27 18:57:00 36.61 Shira [facility] Respiratory rate 2022-01-27 18:57:00 20 /min [facility] Body height 2022-01-27 18:57:00 162.6 cm [facility] Body weight 2022-01-27 18:57:00 96.798 kg [facility] BMI 2022-01-27 18:57:00 36.63 kg/m2 [facility] Systolic blood 2022 21:02:00 126 mm[Hg] [facility] Diastolic blood 2022 21:02:00 68 mm[Hg] [facility] rs[facility] Heart rate 2022 21:02:00 88 /min [facility] Body temperature 2022 21:02:00 36.39 Shira [facility] Respiratory rate 2022 21:02:00 17 /min [facility] Body height 2022 21:02:00 162.6 cm [facility] Body weight 2022 21:02:00 97.16 kg [facility] BMI 2022 21:02:00 36.77 kg/m2 [facility] Systolic blood 2022-01-21 16:22:00 132 mm[Hg] [facility] Diastolic blood 2022-01-21 16:22:00 79 mm[Hg] [facility]ive rs[facility] pressure [facility] Heart rate 2022-01-21 16:22:00 99 /min [facility] Body temperature 2022-01-21 16:22:00 36.11 Shira [facility] Respiratory rate 2022-01-21 16:22:00 17 /min [facility] Body height 2022-01-21 16:22:00 162.6 cm [facility] Body weight 2022-01-21 16:22:00 95.845 kg [facility] BMI 2022-01-21 16:22:00 36.27 kg/m2 [...] 2022-01-16 19:35:00 36.30 kg/m2 [facility] Systolic blood 2022-01-13 16:56:00 126 [...] 2022-01-13 16:56:00 36.39 kg/m2 [facility] Systolic blood 2022-01-09 18:46:00 115 mm[Hg] Univer [facility] pressure [facility] Diastolic blood 2022-01-09 18:46:00 79 mm[Hg] Unive rsity of pressure [facility] Heart rate 2022-01-09 18:46:00 79 /min [facility] Body temperature 2022-01-09 18:46:00 36.67 Shira [facility] Respiratory rate 2022-01-09 18:46:00 18 /min [facility] Body height 2022-01-09 18:46:00 162.6 cm [facility] Body weight 2022-01-09 18:46:00 96.117 kg [facility] BMI 2022-01-09 18:46:00 36.37 kg/m2 [facility] Systolic blood 2022-01-06 19:15:00 132 mm[Hg] [facility] Diastolic blood 2022-01-06 19:15:00 74 mm[Hg] Unive rsity of pressure [facility] Heart rate 2022-01-06 19:15:00 86 /min [facility] Body temperature 2022-01-06 19:15:00 36.78 Shira [facility] Respiratory rate 2022-01-06 19:15:00 18 /min [facility] Body height 2022-01-06 19:15:00 162.6 cm [facility] Body weight 2022-01-06 19:15:00 94.944 kg [facility] BMI 2022-01-06 19:15:00 35.93 kg/m2 [facility] Systolic blood 2022-01-02 18:24:00 111 mm[Hg] [facility]iver [facility] pressure [facility] Diastolic blood 2022-01-02 18:24:00 69 mm[Hg] Unive rsity of pressure [facility] Heart rate 2022-01-02 18:24:00 83 /min [facility] Body temperature 2022-01-02 18:24:00 36.28 Shira [facility] Respiratory rate 2022-01-02 18:24:00 17 /min [facility] Body height 2022-01-02 18:24:00 162.6 cm [facility] Body weight 2022-01-02 18:24:00 94.575 kg [facility] BMI 2022-01-02 18:24:00 35.79 kg/m2 [facility] Systolic blood 2021-12-30 20:46:00 137 mm[Hg] Univer [facility] pressure [facility] Diastolic blood 2021-12-30 20:46:00 77 mm[Hg] Unive rsity of pressure [facility] Heart rate 2021-12-30 20:46:00 89 /min [facility] Body temperature 2021-12-30 20:46:00 36.22 Shira [facility] Respiratory rate 2021-12-30 20:46:00 18 /min [facility] Body height 2021-12-30 20:46:00 162.6 cm [facility] Body weight 2021-12-30 20:46:00 95.851 kg [facility] BMI 2021-12-30 20:46:00 36.27 kg/m2 [facility] Systolic blood 2021-12-17 19:45:00 127 mm[Hg] [facility]iver [facility] pressure [facility] Diastolic blood 2021-12-17 19:45:00 84 mm[Hg] Unive rsity of pressure [facility] Heart rate 2021-12-17 19:45:00 107 /min [facility] Body temperature 2021-12-17 19:45:00 35.94 Shira [facility] Respiratory rate 2021-12-17 19:45:00 18 /min [facility] Body height 2021-12-17 19:45:00 162.6 cm [facility] Body weight 2021-12-17 19:45:00 94.065 kg [facility] BMI 2021-12-17 19:45:00 35.60 kg/m2 [facility] Heart rate 2021-12-01 21:00:00 90 /min [facility] Oxygen saturation in 2021-12-01 21:00:00 99 /min University Arterial blood by [facility] Pulse oximetry Branch Systolic blood 2021-12-01 20:45:00 136 mm[Hg] Univer [facility]ity of pressure [facility] Diastolic blood 2021-12-01 20:45:00 73 mm[Hg] Unive rsity of pressure [facility] Body temperature 2021-12-01 20:12:00 36.33 Shira [facility] Respiratory rate 2021-12-01 20:12:00 18 /min [facility] Body weight 2021-12-01 19:42:00 92.987 kg [facility] BMI 2021-12-01 19:42:00 35.19 kg/m2 [facility] Systolic blood 2021-11-30 16:47:00 133 mm[Hg] Univer [facility]ity of pressure [facility] Diastolic blood 2021-11-30 16:47:00 73 mm[Hg] Unive rsity of pressure [facility] Heart rate 2021-11-30 16:47:00 96 /min [facility] Body temperature 2021-11-30 16:47:00 36.17 Shira [facility] Respiratory rate 2021-11-30 16:47:00 18 /min [facility] Body weight 2021-11-30 16:47:00 94.031 kg [facility] BMI 2021-11-30 16:47:00 35.58 kg/m2 [facility] Oxygen saturation in 2021-11-30 16:47:00 97 /min University of Arterial blood by [facility] Pulse oximetry Branch Systolic blood 2021-11-29 13:03:00 113 mm[Hg] Univer sity of pressure [facility] Diastolic blood 2021-11-29 13:03:00 65 mm[Hg] Unive rsity of pressure [facility] Heart rate 2021-11-29 13:03:00 82 /min [facility] Body temperature 2021-11-29 13:03:00 36.89 Shira [facility] Respiratory rate 2021-11-29 13:03:00 20 /min [facility] Body height 2021-11-29 13:03:00 162.6 cm [facility] Body weight 2021-11-29 13:03:00 92.987 kg [facility] BMI 2021-11-29 13:03:00 35.19 kg/m2 [facility] Oxygen saturation in 2021-11-29 13:03:00 100 /min [facility] of Arterial blood by [facility] Pulse oximetry Branch HEIGHT 2020-09-22 06:00:00 152.4 cm WEIGHT 2020-09-22 06:00:00 80.8 kg HEIGHT 2020-09-21 19:00:00 152.4 cm WEIGHT 2020-09-21 19:00:00 80.786 kg Procedures Procedure Date / Time Performing Clinician Source Performed POCT TEST 2022-06-17 19:17:00 Alma Solis [facility] POCT URINALYSIS W/O 2022-06-17 19:17:00 Alma Solis [facility] SPECIFIC GRAVITY [facility] PATIENT FINANCIAL 2022-06-17 19:02:51 Doctor Unatamika, [facility] POLICY [facility] POCT TEST 2022-04-22 05:04:00 Kiarra Arizmendi [facility] COMP. METABOLIC PANEL 2022-04-22 04:35:00 Kiarra Arizmendi [facility] ([id number]) [facility] CBC WITH DIFF 2022-04-22 04:35:00 Kiarra Arizmendi [facility] URINALYSIS 2022-04-22 04:35:00 Kiarra Arizmendi [facility] NOTICE OF PRIVACY 2022-04-22 02:08:27 Doctor Thien, [facility] PRACTICES [facility] CONSENT/REFUSAL FOR 2022-04-22 02:07:10 Doctor Thien, [facility] DIAGNOSIS AND TREATMENT [facility] PREPARE PACKED RBC 2022-02-16 23:41:05 Raven Goldsmith [facility] CT CHEST PULMONARY 2022-02-16 21:13:19 Raven Goldsmith [facility] ANGIOGRAM [facility] CT HEAD WO CONTRAST 2022-02-16 21:12:[address] [facility] US PELVIS COMPLETE WITH 2022-02-16 19:47:38 Raven Goldsmith [facility] TRANSVAGINAL [facility] HB ABO GROUPING 2022-02-16 18:30:00 Raven Goldsmith [facility] MAGNESIUM 2022-02-16 18:29:00 Raven Goldsmith [facility] TROPONIN I 2022-02-16 18:29:00 Raven Goldsmith [facility] COMP. METABOLIC PANEL 2022-02-16 18:29:00 Raven Goldsmith [facility] ([id number]) [facility] CBC WITH DIFF 2022-02-16 18:29:00 Raven Goldsmith [facility] PROTHROMBIN TIME / INR 2022-02-16 18:29:00 Raven Goldsmith [facility] ACTIVATED PARTIAL 2022-02-16 18:29:00 Raven Goldsmith [facility] THRMPLAS ISABELL [facility] N-TERMINAL PRO-BNP 2022-02-16 18:29:00 Raven Goldsmith [facility] URINALYSIS 2022-02-16 18:14:00 Raven Goldsmith [facility] URINE DRUG (IMMUNOASSAY) 2022-02-16 18:14:00 Raven Goldsmith [facility] DRUG [facility] nch SCREEN W/O REFLEX CONSENT/REFUSAL FOR 2022-02-16 17:48:27 Doctor Unassigned, [facility] DIAGNOSIS AND TREATMENT [facility] CBC WITH DIFF 2022-02-12 10:03[facility] 2022-02-12 10:00[facility] VENOUS CORD GAS 2022-02-11 16:58:00 Raya Ramirez [facility] CENTRAL NEURAXIAL BLOCK 2022-02-11 06:58:26 Nory Jiménez [facility] CBC WITH DIFF 2022-02-10 23:27:00 Raya Ramirez [facility] HEPATITIS B SURFACE 2022-02-10 23:27:00 Raya Ramirez [facility] ANTIGEN [facility] HIV 1/2 AG-AB WITH REFLEX 2022-02-10 23:27:00 [facility] 2022-02-10 23:27:00 Raya Ramirez [facility] IGG/IGM [facility] ANTI-D R/O PANEL 2022-02-10 23:25:00 Raya Ramirez [facility] HB ABO GROUPING 2022-02-10 23:25:00 [facility] RHO (D) IMMUNE GLOBULIN 2022-02-10 23:25:00 Magaly Cleaning [facility] AUTHORIZATION FOR RELEASE 2022-02-07 06:01:00 Doctor Unassigned, [facility] NON-STRESS TEST 2022-02-06 21:51:27 Kevin Singh [facility] POCT URINALYSIS 2022-02-06 00:00:00 Alma Solis [facility] POCT URINALYSIS 2022-02-03 22:20:00 Alma Solis [facility] NON-STRESS TEST 2022-02-03 21:35:28 Alma Solis [facility] URINE DRUG (IMMUNOASSAY) 2022-01-30 22:11:00 Dennys Lara [facility] SCREEN URINALYSIS 2022-01-30 22:11:00 Areli Patel [facility] HB ABO GROUPING 2022-01-30 21:57:00 Areli Patel [facility] LIPASE 2022-01-30 21:52:00 Areli Patel [facility] MAGNESIUM 2022-01-30 21:52:00 Areli Patel [facility] COMP. METABOLIC PANEL 2022-01-30 21:52:00 Areli Patel [facility] ([id number]) [facility] CBC WITH DIFF 2022-01-30 21:52:00 Areli Patel [facility] PROTHROMBIN TIME / INR 2022-01-30 21:52:00 Areli Patel [facility] COVID-19 (ID NOW RAPID 2022-01-30 21:52:00 Areli Patel [facility] TESTING) [facility] HOSPITAL ADMISSION 2022-01-30 06:01:00 Doctor Unassigned, [facility] NON-STRESS TEST 2022-01-30 02:30:41 Radha Nobles Un [facility] CBC WITH DIFF 2022-01-29 21:15:[address] [facility] GC & CHLAMYDIA AMPLIFIED 2022-01-29 21:15:[address] [facility] GROUP B STREPTOCOCCUS BY 2022-01-29 21:15:00 Radha Nobles [facility] POCT URINALYSIS 2022-01-29 00:00:00 MariselpeAlma C [facility] NON-STRESS TEST 2022-01-28 20:12:49 Akinjeanettepe Alma C [facility] POCT URINALYSIS 2022-01-27 00:00:00 Akinsipe Alma C [facility] NON-STRESS TEST 2022 21:50:59 Akinsipe Alma C [facility] POCT URINALYSIS 2022 00:00:00 Akinsipe Alma C [facility] NON-STRESS TEST 2022-01-21 18:09:21 Radha Nobles Un [facility] POCT URINALYSIS 2022-01-21 00:00:00 Akinsipe Alma C [facility] NON-STRESS TEST 2022-01-16 20:01:49 Amy Sharma [facility] NON-STRESS TEST 2022-01-13 17:45:33 Rdaha Nobles Un [facility] POCT URINALYSIS 2022-01-13 00:00:00 Akinsipe Alma C [facility] POCT URINALYSIS 2022-01-09 18:51:00 Akinsipe Alma C [facility] NON-STRESS TEST 2022-01-07 14:56:27 Alma Solis [facility] POCT URINALYSIS 2022-01-06 19:16:00 Alma Solis [facility] PATIENT CORRESPONDENCE 2022-01-03 05:01:00 Doctor Thien, [facility] (LETTERS, USPS [facility] DOCUMENTATION) NON-STRESS TEST 2022-01-02 20:04:00 Kevin Singh [facility] POCT URINALYSIS 2022-01-02 00:00:00 Alma Solis [facility] POCT URINALYSIS 2021-12-30 20:47:00 Alma Solis [facility] POCT URINALYSIS 2021-12-17 19:46:00 Alma Solis [facility] TDAP VACCINE, >11 YRS, IM 2021-12-17 19:45:33 Alma Solis [facility] URINALYSIS 2021-12-01 21:41[facility] CONSENT/REFUSAL FOR 2021-12-01 19:40:14 Doctor Thien [facility] DIAGNOSIS AND TREAT[facility] CONSENT/REFUSAL FOR 2021-11-30 16:38:10 [facility] Children DIAGNOSIS AND TREATMENT [facility] POCT URINALYSIS 2021-11-29 00:00:00 Alma Solis [facility] AUTHORIZATION FOR RELEASE 2021-07-19 05:01:00 Doctor Thien [facility] Plan of Care Planned Activity [...] = INFLUENZA VACCINE (Season Ended)] Future Scheduled 2022-11-[address] [facility] Test 00:00:00 (Season Ended) [code Medical Center = INFLUENZA VACCINE (Season Ended)] Future Scheduled 2022-06-08 COVID[facility]19 [facility] 13:29:23 [code = COVID-19 VACCINE (#1)] Future Scheduled 2022-06-08 [facility] Test 13:29:23 malignant neoplasm of cervix (procedure) [code = 978484808] Future Scheduled 2022-06-08 IN[facility]UENZA VACCINE [facility] Test 13:29:23 [code = INFLUENZA VACCINE] Future Scheduled 2022-06-08 COVID-19 VACCINE (#1) [facility] 13:29:23 [code = COVID-19 VACCINE (#1)] Future Scheduled 2022-06-08 [facility] Test 13:29:23 malignant neoplasm of cervix (procedure) [code = 759366892] Future Scheduled 2022-06-08 INFLUENZA VACCINE Method ist [...] (12+)] Future Scheduled 2022-03-02 COVID-19 VACCINE (#1) [facility] 16:47:47 [code = COVID-19 VACCINE (#1)] Future Scheduled 2022-03-02 [facility] Test 16:47:47 malignant neoplasm of cervix (procedure) [code = 696258044] Future Scheduled 2022-03-02 INFLUENZA VACCINE [facility] Test 16:47:47 [code = INFLUENZA VACCINE] Future Scheduled 2022-01-12 [facility] Test 19:54:31 Chlamydia trachomatis (procedure) [code = 502498197] Future Scheduled 2022-01-12 Hepatitis C screening [facility] Test 19:54:31 (procedure) [code = 569144570] Future Scheduled 2022-01-12 [facility] Test 19:54:31 malignant neoplasm of cervix (procedure) [code = 359593683] Future Scheduled 2022-01-12 IN[facility]ENZA VACCINE [facility] 19:54:31 [code = INFLUENZA VACCINE] Future Scheduled 2022-01-12 HEPATITIS B VACCINES [facility] 19:54:31 (1 of 3 - 3-dose series) [code = HEPATITIS B VACCINES (1 of 3 - 3-dose series)] Future Scheduled 2022-01-12 COVID-19 VACCINE (#1) [facility] Test 19:54:31 [code = COVID-19 VACCINE (#1)] Future Scheduled 2021-11-09 COVID-19 VACCINE (#1) [facility] Test 06:02:25 [code = COVID-19 VACCINE (#1)] Future Scheduled 2021-11-09 [facility] Test 06:02:25 Chlamydia trachomatis (procedure) [code = 410015872] Future Scheduled 2021-11-09 Hepatitis C screening [facility] Test 06:02:25 (procedure) [code = 993018982] Future Scheduled 2021-11-09 [facility] Test 06:02:25 malignant neoplasm of cervix (procedure) [code = 697259108] Future Scheduled 2021-11-09 INFLUENZA VACCINE [facility] Test 06:02:25 [code = INFLUENZA VACCINE] Future Scheduled 2021-11-09 HEPATITIS B VACCINES Met [facility] Test 06:02:25 (1 of 3 - 3-dose series) [code = HEPATITIS B VACCINES (1 of 3 - 3-dose series)] Future Scheduled 2021-11-09 COVID-19 VACCINE (#1) [facility] Test 06:02:25 [code = COVID-19 VACCINE (#1)] Future Scheduled 2021-11-09 [facility] Test 06:02:25 Chlamydia trachomatis (procedure) [code = 174494676] Future Scheduled 2021-11-09 Hepatitis C screening [facility] Test 06:02:25 (procedure) [code = 849379460] Future Scheduled 2021-11-09 [facility] Test 06:02:25 malignant neoplasm of cervix (procedure) [code = 028232017] Future Scheduled 2021-11-09 INFLUENZA VACCINE [facility] Test 06:02:25 [code = INFLUENZA VACCINE] Future Scheduled 2021-11-09 HEPATITIS B VACCINES Met [facility] Test 06:02:25 (1 of 3 - 3-dose series) [code = HEPATITIS B VACCINES (1 of 3 - 3-dose series)] Future Scheduled 2021-11-[address] [facility] Test 00:00:00 (#1) [code = [facility] INFLUENZA VACCINE (#1)] Future Scheduled 2021-11-[address] [facility] Test 00:00:00 (#1) [code = Medical Center INFLUENZA VACCINE (#1)] Future Scheduled 2021-11-[address] [facility] Test 00:00:00 (#1) [code = [facility] INFLUENZA VACCINE (#1)] Future Scheduled 2021-11-07 [...] [facility]00 (12+) [code = [facility] DEPRESSION SCREENING (12+)] Future Scheduled 2021-03-[address] [facility] Test 00:00:00 (12+) [code = [facility] DEPRESSION SCREENING (12+)] Future Scheduled 2021-03-[address] [facility] Test 00:00:00 (12+) [code = [facility] DEPRESSION SCREENING (12+)] Future Scheduled [address] [facility] 00:[facility]:00 malignant neoplasm of [facility]ica [facility] Center cervix (procedure) [code = 930159827] Future Scheduled [address] [facility] Test 00:00:00 malignant neoplasm of [facility] cervix (procedure) [code = 795897711] Future Scheduled [address] [facility] Test 00:00:00 malignant neoplasm of [facility] Center cervix (procedure) [code = 854112454] Future Scheduled [address] [facility] Test 00:00:00 malignant neoplasm of [facility] Center cervix (procedure) [code = 882782280] Future Scheduled [address] [facility] Test 00:00:00 malignant neoplasm of [facility] Center cervix (procedure) [code = 016365643] Future Scheduled [address] [facility] Test 00:00:00 malignant neoplasm of [facility] Center cervix (procedure) [code = 774949878] Future Scheduled [address] [facility] Test 00:[facility]:00 (procedure) [code = [facility] 41148006] Future Scheduled [address] [facility] Test 00:00:00 (procedure) [code = Medical Center 34029717] Future Scheduled [address] [facility] 00:00:00 (procedure) [code = Medical Center 68128026] Future Scheduled [address] [facility] 00:00:00 (procedure) [code = Medical Center 82567701] Future Scheduled [address] [facility] Test 00:00:00 (procedure) [code = Medical Center 30759401] Future Scheduled [address] [facility] Test 00:00:00 (procedure) [code = Medical Center 41940955] Future Scheduled 2015 HEPATITIS C SCREENING CH [...] [facility] (procedure) [code = 590500846] Future Scheduled [facility] Test malignant neoplasm of cervix (procedure) [code = 417881223] Future Scheduled INFLUENZA VACCINE [facility] Test [code = INFLUENZA VACCINE] Encounters Start End Encounter Admission Attending Care Care Encounter Source Date/Time Date/Time Type Type Clinicians Facility Department ID 2021-12-01 Outpatient P [facility] MARGOT [id number] Univers 18:22:19 ity of [facility] 2021-01-07 Emergency [facility] [id number] Univers 07:14:20 ity of [facility] 2021-01-07 Emergency [facility] [id number] Univers 06:42:50 ity of [facility] 2021-01-07 Emergency [facility] [id number] Univers 06:25:23 ity of [facility] 2021-01-07 Emergency [facility] [id number] Univers 03:52:48 ity of [facility] 2021-01-07 Emergency [facility] [id number] Univers 03:25:06 ity of [facility] 2021-01-06 Emergency [facility] [id number] Univers 03:53:51 ity [facility] 2020-09-21 Inpatient ER TESHA, [facility] [id number] [facility] 19:23:00 JOANNE 2022-07-28 2022-07-28 Outpatient P [facility] [id number] Univers 11:15:00 11:15:00 ity of [facility] 2022-07-08 2022-07-08 [facility] [id number] Univers 15:30:00 15:30:00 RADHA [facility] 2022-07-08 2022-07-08 [facility]patient [facility] [id number] Univers 15:30:00 15:30:00 [facility] 2022-07-08 2022-07-08 Letter [facility] 1.2.840.114 [id number] Univers 00:00:00 00:00:00 (Out) Radha Begum [employer] 350.1.13.10 i ty of REGIONAL 4.2.7.2.686 Dwayne as MATERNAL [phone] [facility] & CHILD [address] [place] [address] 2022-07-03 2022-07-03 Outpatient [facility] [id number] Univers 11:00:00 11:00:00 [facility] 2022-06-24 2022-06-24 Telephone [facility] 1.2.840.114 [id number] Univers 00:00:00 00:00:00 Alma Estevez [employer] 350.1.13.10 ity of [facility] 4.2.7.2.686 Dwayne as MATERNAL [phone] [facility] & [address] 2022-06-23 2022-06-23 Telemedici Faculty, [facility] 1.2.840.114 [id number] Univers 15:30:00 16:00:00 ne Visit Seth Kay [employer] GROUN[employer]KEEPER 350.1.13. 10 ity of [facility] 4.2.7.2.686 Dwayne as MATERNAL [phone] [facility] & CHILD [address] [place] [address] 2022-06-23 2022-06-23 [facility]patient [facility] [id number] Univers 15:30:00 15:30:00 SETH [facility] 2022-06-19 2022-06-19 Telephone [facility] 1.2.192.703 [id number] Univers 00:00:00 00:00:00 Mallory [employer] 350.1.13.10 it y of [facility] 4.2.7.2.686 Dawyne as MATERNAL [id number] [facility] & CHILD [address] [place] [address] 2022-06-18 2022-06-18 Telephone [facility] 1.2.715.601 [id number] Univers 00:00:00 00:00:00 Mallory [employer] 350.1.13.10 it y of [facility] 4.2.7.2.686 Dwayne as MATERNAL [phone] [facility] & CHILD [address] [place] [address] 2022-06-17 2022-06-17 Outpatient R IRMA, [facility] [id number] Univers 14:45:00 15:19:39 ALMA hammonds o f [facility] 2022-06-17 2022-06-17 Initial Akinjoanie, [facility] 1.2.653.705 [id number] Univers 14:45:00 15:19:39 Alma Estevez [employer] 350.1.13.10 ity of Visit [facility] 4.2.7.2.686 Dwayne as MATERNAL [id number] [facility] & CHILD [address] [place] [address] 2022-06-17 2022-06-17 Orders Doctor COLT 1.2.840.114 [id number] Univers 00:00:00 00:00:00 Only Unassigned, PARUL 350.1.13.10 ity of [place] [facility] 4.2.7.2.686 Dwayne as [phone] [facility] [address] 2022-04-21 2022-04-21 Emergency X ARIZMENDI, [facility] ERT [id number] Univers 20:35:00 23:49:00 KIARRA garciay [facility] 2022-04-21 2022-04-21 Emergency Arizmendi, [facility] 1.2.840.114 [id number] Univers 20:35:00 23:49:00 [facility] 350.1.13.10 i ty of [place] [phone] [facility] [address] 2022-03-28 2022-03-28 Outpatient R GIULIANO, [facility] [id number] Univers 13:00:00 13:00:00 [facility] 2022-03-18 2022-03-18 Outpatient R JF [facility] [id number] Univers 14:15:00 15:00:29 [facility] 2022-03-18 2022-03-18 Nurse Nurse, [facility] 1.2.840.114 [id number] Univers 14:15:00 14:35:00 Visit Unknown, Attending HEALTH 350.1.13.10 ity [facility] 4.2.7.2.686 Dwayne as JORGE?BLEA [phone] [address] MEDICAL OFFICE BUILDING 2022-03-04 2022-03-04 Outpatient R GIULIANO [facility] [id number] Univers 11:00:00 11:52:45 RAD[facility] 2022-03-04 2022-03-04 Routine Provider, Ember [facility] 1 .2.840.114 [id number] Univers 11:00:00 11:52:45 Radha Nobles [employer] 350.1.13. 10 ity of Visit [facility] 4.2.7.2.686 Dwayne as MATERNAL [phone] Med ical & CHILD [address] [place] [address] 2022-02-20 2022-02-20 Case [facility] 1.2.840.114 [id number] Univers 00:00:00 00:00:00 Management Dennys GUTIERREZ 350.1.13.10 ity [facility] 4.2.7.2.686 [facility] [id number] [facility] [address] 2022-02-17 2022-02-17 Outpatient R [facility] [id number] Univers 15:00:00 15:00:00 ity [facility] 2022-02-16 2022-02-16 Emergency X AGUS [facility] ERT [id number] Univers 12:01:00 17:40:00 [facility]AVEN [facility] 2022-02-16 2022-02-16 Emergency [facility] 1.2.614.200 [id number] Univers 12:01:00 17:40:00 Raven [place] 350.1.13.10 i ty [facility] 4.2.7.2.[address] [facility] [phone] [facility] [address] 2022-02-10 2022-02-12 Inpatient X ÓSCAR KATEEETA [facility] MARGOT 1 [id number] Univers 15:37:00 16:21:00 CHIQUIS KATE ity [facility] 2022-02-10 2022-02-12 Hospital Eladia Conklin 1 .2.840.114 [id number] Univers 15:37:00 16:21:00 Encounter Chiquis Kate 350.1.13.10 ity of [facility] 4.2.7.2.686 Dwayne as [id number] [facility] [address] 2022-02-11 2022-02-11 Anesthesia Nory Jiménez 1.2.840 .114 [id number] Univers 00:25:00 12:19:00 Event Martha Agarwal 350.1.13.10 ity of [facility] 4.2.7.2.686 Dwayne as [id number] [facility] [address] 2022-02-11 2022-02-11 Outpatient Bryn NOBLES [facility] [id number] Univers 10:15:00 10:15:00 RAD[facility] 2022-02-10 2022-02-10 Telephone [facility] 1.2.840.114 [id number] Univers 00:00:00 00:00:00 Alma Estevez [employer] 350.1.13.10 ity of [facility] 4.2.7.2.686 Dwayne as MATERNAL [phone] Med ical & CHILD [address] [place] [address] 2022-02-07 2022-02-07 Orders Doctor COLT 1.2.840.114 [id number] Univers 00:00:00 00:00:00 Only UnassignedPARUL 350.1.13.10 ity of [place] [facility] 4.2.7.2.686 Dwayne as [phone] [facility] [address] 2022-02-06 2022-02-06 Outpatient R ALFREDO [facility] [id number] Univers 13:30:00 14:32:26 KEVIN [facility] 2022-02-06 2022-02-06 Routine Risk, Xko-Usymw-Ki/High [facility] 1. 2.840.114 [id number] Univers 13:30:00 14:32:26 Kevin Singh [employer]KEEPER 350.1.13.10 ity of Visit [facility] 4.2.7.2.686 Dwayne as MATERNAL [phone] [facility] & CHILD [address] [place] [address] 2022-02-03 2022-02-03 [facility] [id number] Univers 15:15:00 15:34:29 ALMA hammonds o f [facility] 2022-02-03 2022-02-03 Routine [facility] 1.2.228.158 [id number] Univers 15:15:00 15:34:29 Alma Estevez [employer] 350.1.13.10 ity of Visit [facility] 4.2.7.2.686 Dwayne as MATERNAL [phone] [facility] & [address] 2022-01-30 2022-01-30 Outpatient X MARCO [facility] MARGOT [id number] Univers 15:44:00 17:50:00 DENNYS [facility] 2022-01-30 2022-01-30 Emergency Areli Patel [facility] 1.2.8 40.114 [id number] Univers 15:44:00 17:50:00 Dennys Lara [facility] 350.1.13.10 ity [facility] 4.2.7.2.686 [facility] [phone] [address] 2022-01-29 2022-01-29 Outpatient R GIULIANO [facility] [id number] Univers 14:45:00 15:15:50 RADHA [facility] 2022-01-29 2022-01-29 Routine Provider, Ember Temp [facility] 1 .2.840.114 [id number] Univers 14:45:00 15:15:50 Radha Nobles [employer] 350.1.13. 10 ity of Visit REG[facility]AL 4.2.7.2.686 Dwayne as MATERNAL [phone] [facility] & CHILD [address] [place] [address] 2022-01-27 2022-01-27 Outpatient R IRMA, [facility] [id number] Univers 13:00:00 14:16:53 ALMA ity o [facility] 2022-01-27 2022-01-27 Routine Akinpe, [facility] 1.2.186.430 [id number] Univers 13:00:00 14:16:53 Amla C [employer] 350.1.13.10 ity of Visit REGIONAL 4.2.7.2.686 Dwayne as MATERNAL [id number] [address] 2022 2022 [facility] [id number] Univers 15:00:00 15:51:27 ALMA ity o [facility] 2022 2022 Routine Akinaure, [facility] 1.2.622.734 [id number] Univers 15:00:00 15:51:27 Alma Estevez [employer] 350.1.13.10 ity of Visit REGIONAL 4.2.7.2.686 Dwayne as MATERNAL [phone] [facility] & [address] 2022-01-21 2022-01-21 Outpatient R GIULIANO [facility] [id number] Univers 10:30:00 10:50:45 RADHA ityolie [facility] 2022-01-21 2022-01-21 Routine Provider, [facility] 1 .2.840.114 [id number] Univers 10:30:00 10:50:45 Radha Nobles [employer] 350.1.13. 10 ity of Visit REGIONAL 4.2.7.2.686 Dwayne as MATERNAL [phone] [facility] & CHILD [address] [place] [address] 2022-01-16 2022-01-16 [facility] [id number] Univers 13:30:00 14:01:20 AMY [facility] 2022-01-16 2022-01-16 Routine Risk, Wyt-Urvet-Gq/High [facility] 1. 2.840.114 [id number] Univers 13:30:00 14:01:20 Amy Sharma [employer] 350.1.13.10 ity of Visit REGIONAL 4.2.7.2.686 Dwayne as MATERNAL [phone] [facility] ical & CHILD [address] [place] [address] 2022-01-15 2022-01-15 Telephone [facility] 1.2.840.114 [id number] Univers 00:00:00 00:00:00 Alma Estevez [employer]AL [employer]CIAL GROUN[employer]KEEPER 350.1.13.10 ity of [facility] 4.2.7.2.686 Dwayne as MATERNAL [phone] [facility] & CHILD [address] [place] [address] 2022-01-13 2022-01-13 Outpatient Bryn NOBLES [facility] [id number] Univers 11:00:00 15:39:45 RADHA [facility] 2022-01-13 2022-01-13 Routine Provider, Ember Hooverp [facility] 1 .2.840.114 [id number] Univers 11:00:00 11:15:00 Radha Nobles [employer]EEPER 350.1.13. 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 2.840.114 [id number] Univers 13:45:00 14:34:17 Alma Solis [employer]KEEPER 350.1.13 .10 ity of Visit Kevin Singh REGIONAL 4.2.7.2.686 [place] MATERNAL [phone] [facility] CHILD [address] [place] [address] 2022-01-07 2022-01-07 Telephone Risk, [facility] 1.2.693.656 [id number] Univers 00:00:00 00:00:00 Ang-Rmchp-N [employer] 350.1.13.10 ity of p/High [facility]AL 4.2.7.2.686 Dwayne as MATERNAL [id number] [facility] & [address] 2022-01-06 2022-01-06 Outpatient R VIRA [facility] [id number] Univers 15:30:00 16:45:47 ROLY it y of S, [place] JESUS [facility] 2022-01-06 2022-01-06 Telemedici Faculty, Reddy chp [facility] 1.2.840.114 [id number] Univers 15:30:00 16:45:47 ne Visit Neal Reed [employer]KEE[employer] 350.1 .13.10 ity of [facility]AL 4.2.7.2.686 Dwayne as MATERNAL [id number] [facility] & CHILD [address] [place] [address] 2022-01-06 2022-01-06 Routine Alma Solis [facility] 1.2.8 40.114 [id number] Univers 14:45:00 15:33:24 KatzTrever R [employer] 350.1.13.1 0 ity of Visit REGIONAL 4.2.7.2.686 Dwayne as MATERNAL [phone] [facility] & CHILD [address] [place] [address] 2022-01-03 2022-01-03 Orders Doctor GREGORY 1.2.840.114 [id number] Univers 00:00:00 00:00:00 Only Unassigned, PARUL 350.1.13.10 ity of [place] [facility] 4.2.7.2.686 Dwayne as [phone] [address] 2022-01-02 2022-01-02 Outpatient R ALFREDO [facility] [id number] Univers 13:30:00 15:00:16 KEVIN ity of [facility] 2022-01-02 2022-01-02 Routine Risk, Wce-Voshm-Vh/High [facility] 1. 2.840.114 [id number] Univers 13:30:00 15:00:16 Kevin Singh [employer] 350.1.13.10 ity of Visit REGIONAL 4.2.7.2.686 Dwayne as MATERNAL [phone] [facility] & CHILD [address] [place] [address] 2022-01-02 2022-01-02 Telephone [facility] 1.2.840.114 [id number] Univers 00:00:00 00:00:00 Alma C [employer] 350.1.13.10 ity of [facility]AL 4.2.7.2.686 Dwayne as MATERNAL [phone] [facility] CHILD [address] [place] [address] 2021-12-30 2021-12-30 Routine [facility] 1.2.872.319 [id number] Univers 15:30:00 15:45:00 Alma C [employer] [id number] ity of Visit [facility] [id number] Dwayne as MATERNAL [phone] [facility] & CHILD [address] [place] [address] 2021-12-30 2021-12-30 Outpatient R [facility] [id number] Univers 15:30:00 15:30:00 ALMA ity o [facility] 2021-12-17 2021-12-17 Outpatient R [facility] [id number] Univers 14:00:00 15:10:22 ALMA ity o f [facility] 2021-12-17 2021-12-17 [facility] [id number] Univers 14:00:00 15:10:22 Alma C [employer] GROUNDSKEEPER [id number] ity of Visit REGIONAL [id number] Dwayne as MATERNAL [phone] [facility] ical & CHILD [address] [place] [address] 2021-12-13 2021-12-13 [facility] [id number] Univers 09:15:00 09:15:00 ALMA hammonds o f [facility] 2021-12-10 2021-12-10 Telephone [facility] [id number] Univers 00:00:00 00:00:00 Alma Estevez INDUSTRIAL COMMERCIAL GROUNDSKEEPER 350.1.13.10 ity of [facility] 4.2.7.2.686 Dwayne as MATERNAL [phone] [facility] & CHILD [address] [place] [address] 2021-12-05 2021-12-05 Abstract [facility] 1.2.840.114 [id number] Univers 00:00:00 00:00:00 Alma Estevez [employer] GROUNDSKEEPER 350.1.13.10 ity of REGIONAL 4.2.7.2.686 Dwayne as MATERNAL [phone] [facility] ical & CHILD [address] [place] [address] 2021-12-01 2021-12-01 Outpatient P ALICIA [facility] MARGOT [id number] Univers 14:52:00 18:22:00 LUKE ityolie [facility] 2021-12-01 2021-12-01 [facility] TirsokunalspringCOLT 1.2.944.014 [id number] Univers 14:52:00 18:22:00 Encounter Luke CAT 350.1.13.10 ity of [facility] 4.2.7.2.686 Dwayne as [phone] [address] 2021-11-30 2021-11-30 Emergency [facility] [id number] Univers 11:50:00 12:13:00 ARELI hammonds [facility] 2021-11-30 2021-11-30 Emergency JorgeMCLEOD, UTSONJA 1.2.840.114 [id number] Univers 11:50:00 12:13:00 Areli GUTIERREZ 350.1.13.10 ity [facility] 4.2.7.2.686 [facility] [phone] [facility] [address] 2021-11-30 2021-11-30 Letter COLT Wyman 1.2.840.114 [id number] Univers 00:00:00 00:00:00 (Out) Vijaya Whelan PARUL 350.1.13.10 it y of [facility] 4.2.7.2.686 Dwayne as [phone] [facility] [address] 2021-11-29 2021-11-29 Oriental Rug Repairer Ultrasound, [facility] 1.2 .840.114 [id number] Univers 15:15:00 16:00:00 Visit Trever Katz R [employer]AL [employer]CIAL GROUNDSKEEPER 350.1.13.10 ity of Zen Garcia [facility] 4.2.7.2.686 [place] MATERNAL [phone] [facility] ical & CHILD 369 [facility] 2021-11-29 2021-11-29 Outpatient P [facility] [id number] Univers 15:15:00 15:15:00 ity of [facility] 2021-11-29 2021-11-29 Outpatient R GIANNA [facility] [id number] Univers 07:45:00 08:28:49 TREVER hammonds o f [facility] 2021-11-29 2021-11-29 Routine [facility] 1.2.840.114 [id number] Univers 07:45:00 08:28:49 Trever Clemente [employer]AL [employer]CIAL GROUNDSKEEPER 350.1.13.10 ity of Visit [facility] 4.2.7.2.686 Dwayne as MATERNAL [phone] [facility] ical & CHILD [address] [place] [address] 2021-11-28 2021-11-28 Outpatient R IRMA [facility] [id number] Univers 14:45:00 14:45:00 ALMA hammonds o f [facility] 2021-11-19 2021-11-19 Telephone [facility] 1.2.840.114 [id number] Univers 00:00:00 00:00:00 Alma Estevez [employer]AL COMM[employer]CIAL GROUNDSKEEPER 350.1.13.10 ity of [facility] 4.2.7.2.686 Dwayne as MATERNAL [phone] Med ical & [address] 2021-11-12 2021-11-12 Routine [facility] 1.2.891.969 [id number] Univers 14:45:00 15:00:00 Alma C [employer]CIAL GROUNDSKEEPER 350.1.13.10 ity of Visit REGIONAL 4.2.7.2.686 [place]way[place] as MATERNAL [phone] [address] 2021-11-12 2021-11-12 Outpatient R IRMA [facility] [id number] Univers 14:45:00 14:45:00 ALMA braxton kari [facility] 2021-11-04 2021-11-04 Telemedici Faculty, [facility] 1.2.840.114 [id number] Univers 15:00:00 15:30:00 ne Visit Anton Renteria [employer]AL [employer]CIAL GROUNDSKEEPER 350.1.13.10 ity of REGIONAL 4.2.7.2.686 [place] as MATERNAL [phone] [address] 2021-11-04 2021-11-04 Outpatient P DEXTER [facility] [id number] Univers 15:00:00 15:00:00 ANTON cassius braxton kari [facility] 2021-10-28 2021-10-28 Outpatient P [facility] [id number] Univers 15:00:00 15:00:00 ity of [facility] 2021-10-22 2021-10-22 Abstract [facility] 1.2.840.114 [id number] Univers 00:00:00 00:00:00 Alma C [employer]CIAL GROUNDSKEEPER 350.1.13.10 ity of REGIONAL 4.2.7.2.686 [place] as MATERNAL [id number] [address] 2021-10-17 2021-10-17 Oriental Rug Repairer 1[facility] Room [facility] 1.2. 840.114 [id number] Univers 14:15:00 16:36:19 Visit Abena Patel [employer]AL [employer]CIAL GROUNDSKEEPER 350.1.13.10 ity of REGIONAL 4.2.7.2.686 Dwayne as MATERNAL [phone] [facility] ical & CHILD 369 [facility] 2021-10-17 2021-10-17 Outpatient P JORGE [facility] [id number] Univers 14:15:00 14:15:00 ABENA ity [facility] 2021-10-15 2021-10-15 Outpatient R AKINSIPE, [facility] [id number] Univers 13:00:00 13:45:11 ALMA ity o f [facility] 2021-10-15 2021-10-15 Routine Akinsipe, [facility] 1.2.562.441 [id number] Univers 13:00:00 13:45:11 Alma C [employer]AL COMM[employer]CIAL GROUNDSKEEPER 350.1.13.10 ity of Visit [facility] 4.2.7.2.686 Dwayne as MATERNAL [phone] [facility] & [address] 2021-10-11 2021-10-11 Outpatient P [facility] [id number] Univers 14:15:00 14:15:00 ity of [facility] 2021-10-07 2021-10-07 Outpatient R AKINSIPE, [facility] [id number] Univers 12:45:00 13:37:44 ALMA garciay o [facility] 2021-10-07 2021-10-07 Routine Akinsipe, [facility] 1.2.043.359 [id number] Univers 12:45:00 13:37:44 Alma C INDUST[employer]AL COMMERCIAL GROUNDSKEEPER 350.1.13.10 ity of Visit [facility] 4.2.7.2.686 Dwayne as MATERNAL [phone] [facility] & [address] 2021-10-07 2021-10-07 Orders Doctor GREGORY 1.2.840.114 [id number] Univers 00:00:00 00:00:00 Only Unassigned, PARUL 350.1.13.10 ity of [place] [facility] 4.2.7.2.686 Dwayne as [phone] [address] 2021-10-03 2021-10-03 Outpatient R AKINSIPE, [facility] [id number] Univers 16:00:00 16:00:00 ALMA ity o f [facility] 2021-09-19 2021-09-19 Orders Doctor COLT 1.2.840.114 [id number] Univers 00:00:00 00:00:00 Only Unassigned, PARUL 350.1.13.10 ity of [facility] 4.2.7.2.686 Dwayne as [phone] [address] 2021-09-05 2021-09-05 Outpatient R IRMA [facility] [id number] Univers 15:30:00 16:02:29 ALMA hammonds o f [facility] 2021-09-05 2021-09-05 Routine [facility] 1.2.006.422 [id number] Univers 15:30:00 16:02:29 Alma Estevez INDUSTRIAL COMMERCIAL GROUNDSKEEPER 350.1.13.10 ity of Visit REGIONAL 4.2.7.2.686 Dwayne as MATERNAL [phone] [facility] & CHILD [address] [place] [address] 2021-09-02 2021-09-02 Orders Doctor COLT 1.2.840.114 [id number] Univers 00:00:00 00:00:00 Only Unassigned, PARUL 350.1.13.10 ity of [facility] 4.2.7.2.686 Dwayne as [phone] [address] 2021-08-19 2021-08-19 Outpatient R ALICIA [facility] [id number] Univers 15:00:00 15:00:00 LUKE hammonds [facility] 2021-08-19 2021-08-19 Oriental Rug Repairer Lab, [facility] 1.2.840. 114 [id number] Univers 15:00:00 15:00:00 Visit Luke Fish [employer]AL COMMERCIAL GROUNDSKEEPER 350.1.13.10 ity of REGIONAL 4.2.7.2.686 Dwayne as MATERNAL [phone] [facility] & CHILD [address] [place] [address] 2021-08-19 2021-08-19 Oriental Rug Repairer 1, Papijone Room [facility] 1.2. 840.114 [id number] Univers 14:15:00 14:51:59 Visit Luke Fish INDUSTRIAL COMMERCIAL GROUNDSKEEPER 350.1.13.10 ity of REGIONAL 4.2.7.2.686 Dwayne as MATERNAL [phone] [facility] & CHILD [address] [place] [address] 2021-08-19 2021-08-19 Outpatient P [facility] [id number] Univers 14:15:00 14:15:00 ity of [facility] 2021-08-19 2021-08-19 Abstract [facility] 1.2.840.114 [id number] Univers 00:00:00 00:00:00 Alma C IND[employer]AL COMMERCIAL GROUNDSKEEPER 350.1.13.10 ity of REGIONAL 4.2.7.2.686 Dwayne as MATERNAL [phone] [address] 2021-08-08 2021-08-08 Outpatient R FLORINDABANNER [id number] Univers 15:30:00 16:15:10 ALMA ity o [facility] 2021-08-08 2021-08-08 Routine [facility] 1.2.146.927 [id number] Univers 15:30:00 16:15:10 Alma C [employer]AL COMMERCIAL GROUNDSKEEPER 350.1.13.10 ity of Visit REGIONAL 4.2.7.2.686 Dwayne as MATERNAL [phone] [address] 2021-08-08 2021-08-08 Outpatient R FLORINDABANNER [id number] Univers 15:30:00 16:15:10 ALMA ity o [facility] 2021-08-08 2021-08-08 Outpatient R [facility] [id number] Univers 15:30:00 15:30:00 ALMA ity o [facility] 2021-07-25 2021-07-25 Telephone [facility] 1.2.840.114 [id number] Univers 00:00:00 00:00:00 Alma C INDUSTRIAL COMMERCIAL GROUNDSKEEPER 350.1.13.10 ity of REGIONAL 4.2.7.2.686 Dwayne as MATERNAL [phone] [facility] & [address] 2021-07-19 2021-07-19 Orders Doctor COLT 1.2.840.114 [id number] Univers 00:00:00 00:00:00 Only Unassigned, PARUL 350.1.13.10 ity of [facility] 4.2.7.2.686 Dwayne as [phone] [address] 2021-07-18 2021-07-18 Outpatient Bryn SHARMA [facility] [id number] Univers 13:15:00 13:52:24 AMY hammonds [facility] 2021-07-18 2021-07-18 Routine Risk, Yor-Vxvss-Gs/High [facility] 1. 2.840.114 [id number] Univers 13:15:00 13:52:24 Amy Sharma INDUSTRIAL COMMERCIAL GROUNDSKEEPER 350.1.13.10 ity of Visit REGIONAL 4.2.7.2.686 Dwayne as MATERNAL [phone] Med ical & CHILD [address] [place] [address] 2021-07-11 2021-07-11 [facility] [id number] Univers 15:00:00 16:21:03 ALMA ityolie o f [facility] 2021-07-11 2021-07-11 [facility]aaure[facility] 1.2.184.020 [id number] Univers 15:00:00 16:21:03 Alma Estevez INDUSTRIAL COMMERCIAL GROUNDSKEEPER 350.1.13.10 ity of Visit REGIONAL 4.2.7.2.686 Dwayne as MATERNAL [phone] [facility] ical & CHILD [address] [place] [address] 2021-07-11 2021-07-11 Outpatient [facility] [id number] Univers 15:00:00 16:21:03 ALMANAMRATA hammonds o f [facility] 2021-07-11 2021-07-11 Orders Doctor GREGORY 1.2.840.114 [id number] Univers 00:00:00 00:00:00 Only Unassigned, PARUL 350.1.13.10 ity of [facility] 4.2.7.2.686 Dwayne as [phone] [address] 2021-05-14 2021-05-14 Outpatient R JUSTINRICHARD Kaur [facility] [id number] Univers 10:40:00 10:40:00 RICHARD ANDERSON yolie [facility] 2021-04-27 2021-04-27 Letter COLT Wyman 1.2.840.114 [id number] Univers 00:00:00 00:00:00 (Out) Vijaya Whelan PARUL 350.1.13.10 it y of [facility] 4.2.7.2.686 Dwayne as [phone] [address] 2021-04-26 2021-04-26 Emergency X [facility]IP[facility]BY[facility] ERT [id number] Univers 17:29:00 19:21:00 KIARRA hammonds [facility] 2021-04-26 2021-04-26 Emergency [facility]PRES[facility] 1.2.840.114 [id number] Univers 17:29:00 19:21:00 Kiarra [facility] 350.1.13.10 i ty of [place] 4.2.7.2.686 [facility] [phone] [address] 2021-04-25 2021-04-25 Outpatient R [facility] [id number] Univers 09:45:00 09:54:55 ANGELO hammonds [facility] 2021-04-25 2021-04-25 Office [facility] 1.2.025.516 [id number] Univers 09:45:00 09:54:55 Visit [facility] 350.1.13.10 it y of [place] 4.2.7.2.686 Dwayne as JORGE?BLEA [phone] Az anselmo JEF [address] [place] [address] MEDICAL OFFICE BUILDING 2021-04-18 2021-04-18 Emergency X [facility] ERT [id number] Univers 12:29:00 15:20:00 BERTHA radhayolie [facility] 2021-04-18 2021-04-18 Emergency Ty[facility]PRESBY[facility] 1.2.696.132 [id number] Univers 12:29:00 15:20:00 Bertha S [place] 350.1.13.10 i ty of [place] 4.2.7.2.686 [facility] [phone] [address] 2021-04-18 2021-04-18 Orders Doctor COLT 1.2.840.114 [id number] Univers 00:00:00 00:00:00 Only Unassigned, PARUL 350.1.13.10 ity of [place] [facility] 4.2.7.2.686 Dwayne as [phone] [facility] [address] 2021-04-05 2021-04-05 Telephone FlorindaaurePRES[facility] 1.2.840.114 [id number] Univers 00:00:00 00:00:00 Alma Estevez INDUSTRIAL COMMERCIAL GROUNDSKEEPER 350.1.13.10 ity of [facility] 4.2.7.2.686 Dwayne as MATERNAL [phone] [facility] ical & CHILD [address] [place] [address] 2021-03-22 2021-03-22 Refill JustinPRESBYTER[facility] 1.2.840.114 [id number] Univers 00:00:00 00:00:00 [facility] 350.1.13.10 ity of [place] 4.2.7.2.686 Dwayne as JORGE?BLEA [phone] [address] OFFICE [facility] 2021-03-12 2021-03-12 Office [facility]PRESBYTER[facility] 1.2.840.114 [id number] Univers 16:00:00 16:44:59 Visit [facility] 350.1.13.10 ity of [place] 4.2.7.2.686 Dwayne as JORGE?BLEA [phone] [address] OFFICE [facility] 2021-03-12 2021-03-12 Outpatient RICHARD DYKES [facility] [id number] Univers 16:00:00 16:44:59 RICHARD ANDERSON [facility] 2021-03-12 2021-03-12 Outpatient RICHARD DYKES [facility] [id number] Univers 16:00:00 16:00:00 RICHARD ANDERSON [facility] 2021-02-26 2021-02-26 Telephone Justin [facility] 1.2.840.114 [id number] Univers 00:00:00 00:00:00 [facility] 350.1.13.10 ity of [place] 4.2.7.2.686 Dwayne as JORGE?BLEA [phone] [address] OFFICE [facility] 2021-02-17 2021-02-17 Emergency X SALAS PASONJA ERT [id number] Univers 18:01:00 22:48:00 [facility] [facility] 2021-02-17 2021-02-17 Emergency GoldsmithRaven [facility] 1.2.840. 114 [id number] Univers 18:01:00 22:48:00 Armen Rodriguez [place] 350.1.13.10 ity of [place] 4.2.7.2.686 [place] [phone] [address] 2021-01-11 2021-01-11 Oriental Rug Repairer Lab, Ang-Rmchp [facility] 1.2.840. 114 [id number] Univers 10:24:34 10:39:34 Visit Abena Patel [employer]AL [employer]CIAL GROUNDSKEEPER [facility].13.10 [facility] 4.2.7.2.686 [place] as MATERNAL [phone] Med ical & CHILD 107 [facility] 2021-01-11 2021-01-11 Outpatient Brny PATEL [facility] [id number] Univers 10:30:00 10:30:00 ABENA hammonds [facility] 2020-12-21 2020-12-21 Telephone [facility] 1.2.840.114 [id number] Univers 00:00:00 00:00:00 [facility] 350.1.13.10 [facility] 4.2.7.2.686 Dway[place] as Ojrge?Blea [phone] [address] 2020-12-18 2020-12-18 Outpatient Bryn PATEL [facility] [id number] Univers 09:00:00 09:00:00 ABENA hammonds [facility] 2020-11-26 2020-11-26 Office [facility]PRES[facility] 1.2.840.114 [id number] Univers 07:48:27 09:58:10 Visit [facility] 350.1.13.10 [facility] 4.2.7.2.686 [place]way[place] as Jorge?Blea [phone] Az anselmo thompson [address] [place] [address] Office [facility] 2020-11-26 2020-11-26 Outpatient Bryn RICHARD ANDERSON [facility] [id number] Univers 08:00:00 08:00:00 RICHARD ANDERSON yolie [facility] 2020-11-26 2020-11-26 Letter Justin [facility] 1.2.840.114 [id number] Univers 00:00:00 00:00:00 (Out) Richard [facility] 350.1.13.10 ity of [place] 4.2.7.2.686 Dwayne as Jorge?Blea [phone] [address] Office [facility] 2020-11-20 2020-11-20 Outpatient Bryn URIARTENatasha RICHARD [facility] [id number] Univers 08:00:00 08:00:00 JUSTINRICHARD Kaur [facility] 2020-11-14 2020-11-14 Telephone Justin [facility] 1.2.840.114 [id number] Univers 00:00:00 00:00:00 [facility] 350.1.13.10 ity of [place]2.7.2.686 [place] [facility] [phone] Az anselmo thomas [address] [place] [address] 2020-11-01 2020-11-01 Outpatient Bryn SALINAS [facility] [id number] Univers 14:00:00 14:35:39 LILIANA hammonds [facility] 2020-11-01 2020-11-01 Office [facility] 1.2.840.114 [id number] Univers 13:43:12 14:35:39 Visit Liliana Evelin SPECIALTY 350.1.13.10 ity of [place].7.2.[place] AT [phone] Az maria victoriaazalia BEDOYA [address] [facility] 2020-11-01 2020-11-01 Office [facility] 1.2.840.114 [id number] Univers 13:43:12 14:35:39 Visit Liliana Evelin SPECIALTY 350.1.13.10 ity of CARE 4.2.7.2.686 [facility] AT [phone] Az anselmo BEDOYA [address] [place] [address] 2020-11-01 2020-11-01 Outpatient Bryn SALINAS [facility] [id number] Univers 14:00:00 14:00:00 LILIANA hammonds [facility] 2020-10-19 2020-10-19 Outpatient RICHARD DYKES [facility] [id number] Univers 08:40:00 08:40:00 RICHARD ANDERSON yolie [facility] 2020-10-18 2020-10-18 [facility] 1.2.840.114 [id number] Univers 12:54:28 23:59:00 Encounter Lauryn Gutierrez 350.1.13.10 ity [facility] 4.2.7.2.686 [facility] [phone] [facility] [address] [place] [address] 2020-10-18 2020-10-18 Outpatient Bryn RAMÍREZ [facility] [id number] Univers 00:00:00 00:00:00 LAURYN braxton f [facility] 2020-10-15 2020-10-15 Telephone [facility] 1.2.840.114 [id number] Univers 00:00:00 00:00:00 Abena N [employer]PER 350.1.13.10 it y of [facility] 4.2.7.2.686 Dwayne as MATERNAL [phone] Med ical & CHILD [address] [place] [address] 2020-10-15 2020-10-15 Telephone [facility] 1.2.840.114 [id number] 00:00:00 00:00:00 Abena N [employer] 350.1.13.10 REGIONAL 4.2.7.2.686 MATERNAL [id number] & CHILD [address] [place] [address] 2020-10-12 2020-10-12 Telephone [facility] 1.2.840.114 [id number] Univers 00:00:00 00:00:00 Abena N [employer]KEEPER 350.1.13.10 it y of [place] 4.2.7.2.686 Dwayne as MATERNAL [phone] Med ical & CHILD [address] [place] [address] 2020-10-12 2020-10-12 Telephone [facility] 1.2.840.114 [id number] 00:00:00 00:00:00 Abena N [employer]EEPER 350.1.13.10 REGIONAL 4.2.7.2.686 MATERNAL [phone] & CHILD [address] [place] [address] 2020-10-11 2020-10-11 Outpatient R JORGE [facility] [id number] Univers 15:15:00 15:15:00 ABENA hammonds [facility] 2020-10-11 2020-10-11 Telephone [facility] 1.2.840.114 [id number] [facility] 00:00:00 00:00:00 Abena N [employer]AL [employer] GROUNDSKEEPER 350.1.13.10 it y of [place] 4.2.7.2.686 Dwayne as MATERNAL [phone] Med ical & CHILD [address] [place] [address] 2020-10-11 2020-10-11 Telephone [facility] 1.2.840.114 [id number] 00:00:00 00:00:00 Abena Rabia [employer] GR[employer]KEE[employer] 350.1.13.10 REGIONAL 4.2.7.2.686 MATERNAL [phone] & CHILD [address] [place] [address] 2020-10-09 2020-10-09 Office [facility] 1.2.449.403 [id number] [facility] 15:44:08 16:29:53 Visit Abena Camarillo [employer]AL [employer]ERCIAL GROUNDSKEEPER 350.1.13.10 it y of [facility] 4.2.7.2.686 Dwayne as MATERNAL [phone] Med ical & CHILD [address] [place] [address] 2020-10-09 2020-10-09 Office [facility] 1.2.593.032 [id number] 15:44:08 16:29:53 Visit Abena N [employer] 350.1.13.10 REGIONAL 4.2.7.2.686 MATERNAL [phone] & CHILD [address] [place] [address] 2020-10-09 2020-10-09 Outpatient [facility] [id number] Univers 15:45:00 15:45:00 ABENA hammonds [facility] 2020-10-09 2020-10-09 Orders Doctor COLT 1.2.840.114 [id number] Univers 00:00:00 00:00:00 Only Unassigned, PARUL 350.1.13.10 ity of [facility] 4.2.7.2.686 Dwayne as [phone] [facility] [address] 2020-10-08 2020-10-08 Transition Julio [place] 1.2.840.114 [id number] Univers 00:00:00 00:00:00 of Care Mesfin Begum Guerrero 350.1.13.10 ity of [place]7.2.[place] [phone] [facility] [address] 2020-10-01 2020-10-05 Hospital Mary Rios 1.2.840.114 [id number] Univers 09:39:00 10:22:00 Encounter S Parul [id number] ity of Hospital [id number] [place] as [phone] [facility] [address] 2020-10-01 2020-10-01 Outpatient R MARY RIOS [facility] [id number] Univers 08:30:00 08:30:00 ity of [facility] 2020-10-01 2020-10-01 Orders Doctor GREGORY 1.2.840.114 [id number] Univers 00:00:00 00:00:00 Only Unassigned, PARUL [id number] ity of [facility] [id number] [place] as [phone] [address] 2020-09-30 2020-09-30 Orders Doctor GREGORY 1.2.840.114 [id number] Univers 00:00:00 00:00:00 Only Unassigned, PARUL [id number] ity of [facility] [id number] [place] as [phone] [facility] [address] 2020-09-28 2020-09-28 Outpatient R JORGE [facility] [id number] Univers 09:30:00 09:30:00 ABENA hammonds [facility] 2020-09-26 2020-09-26 Laboratory Only, Adc Test [facility] 1.2.840. 114 [id number] Univers 12:05:49 12:20:49 Only Mary Rios Og 350.1.13.10 ity of [place] 4.2.7.2.686 [facility] [phone] [facility] [address] 2020-09-26 2020-09-26 Outpatient R [facility] [id number] Univers 12:00:00 12:00:00 ity of [facility] 2020-09-26 2020-09-26 Orders Doctor COLT 1.2.840.114 [id number] Univers 00:00:00 00:00:00 Only Unassigned, PARUL 350.1.13.10 [facility] [id number] [place] [phone] [facility] [address] 2020-09-21 2020-09-21 Outpatient R RICHARD ANDERSON [facility] [id number] Univers 10:00:00 10:00:00 RICHARD ANDERSON [facility]y of [facility] [facility] 2020-09-14 2020-09-15 Emergency [place], TRAUMA 1.2.551.562 [id number] Univers 21:58:00 00:49:00 [facility] 350.1.13.10 [place] [phone] [facility] 014 Branch 2020-09-12 2020-09-13 Emergency Peace Ames [facility] 1.2.840.114 [id number] Univers 19:41:00 00:37:00 Yulia Gutierrez 350.1.13.10 i ty of [place] 4.2.7.2.686 [facility] [phone] [facility] 084 Branch 2020-09-12 2020-09-12 Telephone Justin [facility] 1.2.840.114 [id number] Univers 00:00:00 00:00:00 Richard Gutierrez 350.1.13.10 it[place] of [place] [phone] Az dical nal 092 Branch [facility] 2020-09-11 2020-09-11 Emergency Singer [facility] 1.2.197.282 [id number] Univers 20:23:00 22:08:00 Wong Simston 350.1.13.10 i ty of [place] 4.2.7.2.686 [facility] [phone] [address] 2020-08-31 2020-08-31 Emergency Kwaku [facility] 1.2.840.114 [id number] Univers 11:19:00 13:58:00 Yulia [place] 350.1.13.10 i ty of [place] 4.2.7.2.686 [facility] [phone] [address] 2020-08-29 2020-08-29 [facility] 1.2.840.114 [id number] Univers 20:48:00 23:11:00 Yulia Gutierrez 350.1.13.10 i ty of [place] 4.2.7.2.686 [facility] [phone] [address] 2020-06-07 2020-06-07 Office Irma [facility] 1.2.667.501 [id number] [facility] 10:50:31 11:18:03 Visit Alma Estevez [employer] 350.1.13.10 ity of [facility] 4.2.7.2.686 [facility] as MATERNAL [phone] Med ical & CHILD [address] [place] [address] 2020-06-07 2020-06-07 Outpatient R IRMA [facility] [id number] Univers 11:00:00 11:00:00 ALMA hammonds o f [facility] 2020-05-29 2020-05-29 [facility] 1.2.840.114 [id number] Univers 00:00:00 00:00:00 Outreach Santosh PRIMARY 350.1.13.10 i ty of [place] 4.2.7.2.686 [facility] [phone] Az dical [address] [place] [address] 2020-05-13 2020-05-13 Emergency [facility] 1.2.840.114 [id number] Univers 19:12:00 21:45:00 Yulia Gutierrez 350.1.13.10 i ty of [place].7.2.[place] [phone] [facility] [address] [place] 2020-05-13 2020-05-13 Orders Doctor COLT 1.2.840.114 [id number] Univers 00:00:00 00:00:00 Only Unassigned, PARUL 350.1.13.10 ity of [place] [facility] 4.2.7.2.686 Dwayne as [phone] [facility] [address] 2020-01-19 2020-01-19 Telephone Visit, [facility] 1.2.947.770 [id number] Univers 00:00:00 00:00:00 Gurvindersarbjit [employer] 350.1.13.10 ity of Nurse [facility] 4.2.7.2.686 [place] as MATERNAL [phone] Med ical & CHILD [address] [place] [address] 2020-01-17 2020-01-17 Office [facility] 1.2.840.114 [id number] Univers 13:39:45 14:25:08 Visit Trever Clemente [employer] 350.1.13.10 ity of [facility] 4.2.7.2.686 [place] as MATERNAL [phone] Med ical & CHILD [address] [place] [address] 2020-01-17 2020-01-17 [facility]patient [facility] [id number] Univers 13:45:00 13:45:00 TREVER hammonds o f [facility] 2020-01-16 2020-01-16 Telephone [facility] 1.2.760.367 [id number] Univers 00:00:00 00:00:00 Trever Clemente [employer] 350.1.13.10 ity of [facility] 4.2.7.2.686 [place] as MATERNAL [phone] Med ical & CHILD [address] [place] [address] 2019-12-30 2019-12-30 Nurse Visit, Ember Nurse [facility] 1.2 .840.114 [id number] Univers 10:22:21 10:37:21 Visit Abena Patel [employer] 350.1.13.10 ity of [facility] 4.2.7.2.686 [place] as MATERNAL [phone] Med ical & CHILD 107 [facility] 2019-12-30 2019-12-30 Outpatient R [facility] [id number] Univers 10:30:00 10:30:00 ity of [facility] 2019-12-21 2019-12-21 Telephone [facility] 1.2.390.220 [id number] Univers 00:00:00 00:00:00 Trever Bryn [employer] 350.1.13.10 ity of [facility] 4.2.7.2.686 [place] as MATERNAL [phone] Med ical & CHILD [address] [place] [address] 2019-12-20 2019-12-20 Office [facility] 1.2.840.114 [id number] Univers 13:03:11 13:55:34 Visit Brittanisony Clemente [employer] 350.1.13.10 ity of [facility] 4.2.7.2.686 Dwanye as MATERNAL [phone] Med ical & CHILD [address] [place] [address] 2019-12-20 2019-12-20 Outpatient [facility] [id number] Univers 12:45:00 12:45:00 BRITTANILEXA ity o f [facility] 2019-10-24 2019-10-24 Telephone [facility] 1.2.840.114 [id number] Univers 00:00:00 00:00:00 Abena Camarillo [employer] 350.1.13.10 it y of [facility] 4.2.7.2.686 [place] as MATERNAL [phone] Med ical & CHILD [address] [place] [address] 2019-10-17 2019-10-17 Outpatient R [facility] [id number] Univers 15:00:00 15:00:00 ity of [facility] 2019-09-28 2019-09-28 Telephone [facility] 1.2.840.114 [id number] Univers 00:00:00 00:00:00 Abena Camarillo [employer] 350.1.13.10 it y of [facility] 4.2.7.2.686 [place] as MATERNAL [phone] Med ical & CHILD [address] [place] [address] 2019-09-27 2019-09-27 Office [facility] 1.2.370.797 [id number] Univers 14:03:06 14:59:44 Visit Abena Camarillo [employer] 350.1.13.10 it y of [facility] 4.2.7.2.686 [place] as MATERNAL [phone] [facility] ical & CHILD [address] [place] [address] 2019-09-27 2019-09-27 Outpatient [facility] [id number] Univers 14:00:00 14:00:00 ABENA hammonds [facility] 2019-08-26 2019-08-26 [employer] Lab, Ang-Rmchp [facility] 1.2.840. 114 [id number] Univers 12:52:43 13:06:01 Visit Alma Solis [employer] 350.1.13. 10 ity of [facility] 4.2.7.2.686 [place] as MATERNAL [phone] [facility] & [address] 2019-08-26 2019-08-26 Outpatient [facility] [id number] Univers 13:00:00 13:00:00 ALMA hammonds o f [facility] 2019-08-19 2019-08-19 Outpatient R [facility] [id number] Univers 13:00:00 13:00:00 ity [facility] 2019-08-18 2019-08-18 Outpatient R [facility] [id number] Univers 13:00:00 13:00:00 ity of [facility] 2019-08-18 2019-08-18 Emergency X [facility] ERT [id number] Univers 08:24:15 11:52:00 RAVEN hammonds [facility] 2019-08-18 2019-08-18 Emergency [facility] 1.2.114.403 [id number] Univers 08:24:15 11:52:00 Raven Gutierrez 350.1.13.10 i ty of [place]2.7.2.[place] [phone] [facility] [address] [place] 2019-08-18 2019-08-18 Orders Doctor COLT 1.2.840.114 [id number] Univers 00:00:00 00:00:00 Only Unassigned, PARUL 350.1.13.10 ity of [place] [facility] 4.2.7.2.686 [place] as [phone] [facility] 009 [address] 2019-07-31 2019-07-31 Telephone COLT Miramontes 1.2.544.962 [id number] Univers 00:00:00 00:00:00 Kevinrosa CAT 350.1.13.10 i ty of [facility] 4.2.7.2.686 [place] as [phone] [facility] 019 Branch 2019-07-28 2019-07-29 Emergency X [facility] ERT [id number] Univers 18:06:33 00:02:00 SHINTA ity [facility] 2019-07-28 2019-07-29 Emergency [facility] 1.2.840.114 [id number] Univers 18:06:33 00:02:00 [facility] 350.1.13.10 i ty of [place] 4.2.7.2.686 [facility] [phone] [address] 2019-07-18 2019-07-18 Telemedici [facility] 1.2.840.114 [id number] Univers 12:55:14 14:20:25 ne Visit Alma Estevez [employer] 350.1.13.10 ity of [facility] 4.2.7.2.686 [place] as MATERNAL [phone] Med ical & CHILD [address] [place] [address] 2019-07-18 2019-07-18 Outpatient [facility] [id number] Univers 14:00:00 14:00:00 ALMA hammonds o f [facility] 2019-06-27 2019-06-27 Outpatient R [facility] [id number] Univers 15:30:00 15:30:00 ity of [facility] 2019-06-26 2019-06-26 Emergency X [facility] ERT [id number] Univers 19:06:29 21:03:00 LORY ity [facility] 2019-06-26 2019-06-26 Emergency [facility] 1.2.840.114 [id number] Univers 19:06:29 21:03:00 [facility] 350.1.13.10 ity of [place] 4.2.7.2.686 [place] [facility] [phone] [place] [address] Branch (CLC) 2019-06-26 2019-06-26 Telephone Florindaaure, [facility] 1.2.840.114 [id number] Univers 00:00:00 00:00:00 Alma Etsevez [employer] 350.1.13.10 ity of [place]AL 4.2.7.2.686 [place] as MATERNAL [phone] [facility] CH[facility] [address] [place] [address] 2019-06-24 2019-06-24 Outpatient R [facility] [id number] Univers 09:30:00 09:30:00 ity [facility] 2019-06-23 2019-06-23 Telemedici [facility], [facility] 1.2.840.114 [id number] Univers 12:57:38 15:49:57 ne Visit Alma Estevez [employer] 350.1.13.10 ity of [facility] 4..7.2.686 [place] as MATERNAL [phone] [address] 2019-06-23 2019-06-23 Outpatient [facility] [id number] Univers 15:30:00 15:30:00 ALMA hammonds o f [facility] 2019-06-22 2019-06-22 Outpatient R JORGE [facility] [id number] Univers 13:30:00 13:30:00 ABENA hammonds [facility] 2019-06-22 2019-06-22 Telephone Visit, [facility] 1.2.551.858 [id number] Univers 00:00:00 00:00:00 Ember [employer] 350.1.13.10 ity of Nurse [facility] 4.2.7.2.686 [place] as MATERNAL [phone] [facility] & CHILD [address] [place] [address] 2019-06-22 2019-06-22 Refill Doctor [facility] 1.2.840.114 [id number] Univers 00:00:00 00:00:00 Unassigned, [employer] 350.1.13.10 ity of [place] [facility] 4.2.7.2.686 [place] as MATERNAL [phone] [facility] & CHILD [address] [place] [address] 2019-06-21 2019-06-21 [employer]airer Lab, Reddy-Rmchradha [facility] 1.2.840. 114 [id number] Univers 13:00:32 13:15:32 Visit Alma Solis [employer] 350.1.13. 10 ity of [place] 4.2.7.2.686 [place] as MATERNAL [phone] Med ical & CHILD [address] [place] [address] 2019-06-21 2019-06-21 Outpatient [facility] [id number] Univers 10:30:00 10:30:00 ALMA hammonds o f [facility] 2019-06-21 2019-06-21 Telephone [facility] 1.2.840.114 [id number] Univers 00:00:00 00:00:00 Abena N [employer] 350.1.13.10 it y of [facility] 4.2.7.2.686 [place] as MATERNAL [phone] Med ical & CHILD [address] [place] [address] 2019-06-20 2019-06-20 Telephone [facility] 1.2.840.114 [id number] Univers 00:00:00 00:00:00 Abena N [employer] 350.1.13.10 it y of [place] 4.2.7.2.686 [place] as MATERNAL [phone] Med ical & CHILD [address] [place] [address] 2019-06-10 2019-06-10 Telephone [facility] 1.2.840.114 [id number] Univers 00:00:00 00:00:00 Abena N [employer] 350.1.13.10 it y of [place] 4.2.7.2.686 [place] as MATERNAL [phone] Med ical & CHILD [address] [place] [address] 2019-05-20 2019-05-20 Telephone [facility] 1.2.840.114 [id number] Univers 00:00:00 00:00:00 Abena N [employer] 350.1.13.10 it y of [place] 4.2.7.2.686 [place] as MATERNAL [phone] Med ical & CHILD [address] [place] [address] 2019-05-19 2019-05-19 Telephone [facility] 1.2.840.114 [id number] Univers 00:00:00 00:00:00 Abena N [employer] 350.1.13.10 it y of [place] 4.2.7.2.686 [place] as MATERNAL [phone] Med ical & CHILD [address] [place] [address] 2019-05-17 2019-05-17 Office [facility] 1.2.028.667 [id number] Univers 13:24:09 13:50:08 Visit Abena Camarillo [employer] 350.1.13.10 it y of [facility] 4.2.7.2.686 [place] as MATERNAL [phone] Med ical & CHILD [address] [place] [address] 2019-05-17 2019-05-17 [facility]patient [facility] [id number] Univers 13:30:00 13:30:00 ABENA cassius [facility] 2019-05-06 2019-05-06 Outpatient [facility] [id number] Univers 08:15:00 08:15:00 TREVER hammonds o f [facility] 2019-04-20 2019-04-20 Emergency Peace Ames [facility] 1.2.840.114 [id number] Univers 11:02:10 14:18:00 [facility] 350.1.13.[address] [facility] 4.2.7.2.686 [place] [facility] [phone] [facility] [address] [place] 2019-03-29 2019-03-29 Telephone [facility] 1.2.958.182 [id number] Univers 00:00:00 00:00:00 Trever R [employer] 350.1.13.10 ity of [facility] 4.2.7.2.686 [place] as MATERNAL [phone] Med ical & CHILD [address] [place] [address] 2019-03-22 2019-03-22 Telephone [facility] 1.2.717.420 [id number] Univers 00:00:00 00:00:00 Nimaa R [employer] 350.1.13.10 ity of [facility] 4.2.7.2.686 [place] as MATERNAL [phone] Med ical & CHILD [address] [place] [address] 2019-03-21 2019-03-21 Office [facility] 1.2.840.114 [id number] Univers 15:39:38 16:25:05 Visit Trever Clemente [employer] 350.1.13.10 ity [facility] 4.2.7.2.686 [place] as MATERNAL [phone] Med ical & CHILD [address] [place] [address] Results Test Description Test Time Test Comments [...] code = 3257) NEG Negative - Negative [facility] [id number] 19:17:00 Test Item Value Reference Range Interpretation Comments POCT PREG (test code = 1605) Positive On board controls acceptable with C Yes Line (test code = 3574) POCT PREG LOT # (test code = 3575) POCT PREG TEST DATE (test code = 3576) [facility] [id number] 05:04:00 Test Item Value Reference Range Interpretation Comments POCT PREG (test code = 1605) negative On board controls acceptable with present C Line (test code = 3574) POCT PREG LOT # (test code = 3575) [id number] POCT PREG TEST DATE (test 2023-08-07 code = 3576) Lab Interpretation (test code = Normal 86328-4) [facility]. METABOLIC PANEL ([id number])2022-04-22 04:55:23 Test Item Value Reference Range Interpretation Comments NA (test code = 135 mmol/L 135-145 4511976112) K (test code = 4.0 mmol/L 3.5-5.0 4117888314) CL (test code = 105 mmol/L 98-108 7744011331) CO2 TOTAL (test code = 24 mmol/L 23-31 7557838043) AGAP (test code = 6 2-16 1321131222) BUN (test code = 12 mg/dL 7-23 8761277535) GLUCOSE (test code = 117 mg/dL 70-110 H 8239406460) CREATININE (test code = 0.50 mg/dL 0.50-1.04 2711228817) TOTAL BILI (test code = 0.5 mg/dL 0.1-1.0 0250026757) CALCIUM (test code = 8.6 mg/dL 8.6-10.6 8832537738) T PROTEIN (test code = 6.3 g/dL 6.3-8.2 4266800494) ALBUMIN (test code = 4.0 g/dL 3.5-5.0 3170318695) ALK PHOS (test code = 71 U/L 34-122 8592953555) ALTv (test code = 25 U/L 5-35 2-6) AST(SGOT) (test code = 30 U/L 13-40 2027807241) eGFR (test code = 150.3 mL/min/1.73m2 1169800557) MARCELLE (test code = MARCELLE) Association of [...] tests). Lab Interpretation Abnormal (test code = 30298-6) [facility] WITH [id number] 04:43:57 Test Item Value Reference Range Interpretation Comments WBC (test code = 8.83 See_Comment [Automated 6690-2) message] The sy stem which generated this result transmitted reference range : 4.30 - 11.10 10*3/?L. The reference range was not used to interpret this result as normal/abnormal . RBC (test code = 4.30 See_Comment [Automated 789-8) message] The sy stem [...] RDW-SD (test code = 44.5 fL 39.0-49.9 05735-5) RDW-CV (test code = 15.0 % 12.0-15.5 788-0) PLT (test code = 270 See_Comment [Automated 777-3) message] The sy stem which generated this result transmitted reference range : 166 - 358 10*3/ ?L. The reference r david was not used to interpret this result as normal/abnormal . MPV (test code = 10.5 fL 9.5-12.9 38745-8) NRBC/100 WBC (test 0.0 See_Comment [Automat ed code = 1087415044) message] The system which generated this result transmitted reference range : 0.0 - 10.0 /100 WBCs. The refer ence range was not u sed to interpret th is result as normal/abnormal . NRBC x10^3 (test code See_Comment [Auto mated = 9533451931) message] The s ystem which generated this result transmitted reference range : 10*3/?L. The reference range was not used to interpret this result as normal/abnormal . GRAN MAT (NEUT) % 54.9 % (test code = 770-8) IMM GRAN % (test code 0.60 % = 5353583984) LYMPH % (test code = 35.8 % 736-9) MONO % (test code = 6.5 % 5905-5) EOS % (test code = 1.7 % 713-8) BASO % (test code = 0.5 % 706-2) GRAN MAT x10^3(ANC) 4.86 10*3/uL 1.88-7.09 (test code = 9737729897) IMM GRAN x10^3 (test 0.05 10*3/uL 0.00-0.06 code = 2725823993) LYMPH x10^3 (test code 3.16 10*3/uL 1.32-3.29 = 731-0) MONO x10^3 (test code 0.57 10*3/uL 0.33-0.92 = 742-7) EOS x10^3 (test code = 0.15 10*3/uL 0.03-0.39 711-2) BASO x10^3 (test code 0.04 10*3/uL 0.01-0.07 = 704-7) Lab Interpretation Abnormal (test code = 93518-4) [facility] - ONCE [id number] 20:36:00 Test Item Value Reference Range Interpretation Comments ABO & RH (test code O Negative Performe d at [facility] = 20) Laboratory Serv [facility] [place], [place] [phone] Free: [phone] A No. [id number] IAT (test code = Positive Performed a t [facility] 1185) Laboratory Serv [facility] [address] [place] [address]Brtk Free: [phone] A No. [id number] [facility] HospitalMAGNESIUM2022-12-11 19:33:27 Test Item Value Reference Range Interpretation Comments MAGNESIUM (test code = 9111163623) 2.0 mg/dL 1.7-2.4 Lab Interpretation (test code = Normal 21367-9) [facility] HospitalTROPONIN [id number] 19:16:05 Test Item Value Reference Interpretation Comments Range TROPONIN I (test 0.001 ng/mL See_Comment [Automated code = 9984445638) message] The system which generated this result [...] biotin. Lab Interpretation Normal (test code = 31184-7) [facility] Hospital[facility]-TERMINAL [id number] 19:13:04 Test Item Value Reference Range Interpretation Comments NT-proBNP (test code 189 pg/mL See_Comment H [Autom ated = 7537451475) message] The system which generated this result transmitted reference range : <=125. The reference range was not used to interpret this result as normal/abnormal . MARCELLE (test code = MARCELLE) Biotin has been reported to cause a negative bias, interpret results relative to patient's use of biotin. Lab Interpretation Abnormal (test code = 65960-1) [facility] Hospital[facility]. METABOLIC PANEL (78945)2022-02-16 19:04:06 Test Item Value Reference Range Interpretation Comments NA (test code = 139 mmol/L 135-145 5629646050) K (test code = 4.0 mmol/L 3.5-5.0 0067208757) CL (test code = 110 mmol/L 98-108 H 1743298709) CO2 TOTAL (test code = 24 mmol/L 23-31 8807997641) AGAP (test code = 2-16 8774629403) BUN (test code = 10 mg/dL 7-23 8129470919) GLUCOSE (test code = 78 mg/dL 70-110 6518506805) CREATININE (test code = 0.49 mg/dL 0.50-1.04 L 6610686668) TOTAL BILI (test code = 0.3 mg/dL 0.1-1.9 7339960896) CALCIUM (test code = 8.7 mg/dL 8.6-10.6 1482071973) T PROTEIN (test code = 5.5 g/dL 6.3-8.2 L 8374426825) ALBUMIN (test code = 3.2 g/dL 3.5-5.0 L 1427378129) ALK PHOS (test code = 126 U/L 34-122 H 2578315850) ALTv (test code = 21 U/L 5-35 1742-6) AST(SGOT) (test code = 30 U/L 13-40 0413533633) eGFR (test code = mL/min/1.73m2 7684555064) MARCELLE (test code = MARCELLE) Association of [...] tests). Lab Interpretation Abnormal (test code = 59490-5) [facility] HospitalACTIVATED PARTIAL THRMPLAS [id number] 19:03:06 Test Item Value Reference Range Interpretation Comments APTT Patient (test See_Comment [Automat ed code = 3173-2) message] The system which generated this result transmitted reference range : 23 - 38 Seconds . The reference range was not used to interpr et this result as normal/abnormal . MARCELLE (test code = MARCELLE) The [facility] patient population mean normal value for aPTT is 30 seconds. Lab Interpretation Normal (test code = 26651-1) [facility] HospitalPROTHROMBIN TIME / [id number] 19:01:04 Test Item Value Reference Range Interpretation [...] tions. Lab Interpretation (test Normal code = 62288-8) [facility] Hospital[facility] WITH [id number] 18:49:05 Test Item Value Reference Range Interpretation Comments WBC (test code = See_Comment [Automated 0790-2) message] The sy stem which generated this result transmitted reference range : 4.30 - 11.10 10*3/?L. The reference range was not used to interpret this result as normal/abnormal . RBC (test code = See_Comment L [Automated 919-8) message] The sy stem which generated this [...] RDW-SD (test code = 45.1 fL 39.0-49.9 49891-9) RDW-CV (test code = 14.1 % 12.0-15.5 788-0) PLT (test code = See_Comment [Automated 777-3) message] The sy stem which generated this result transmitted reference range : 166 - 358 10*3/ ?L. The reference r david was not used to interpret this result as normal/abnormal . MPV (test code = 10.4 fL 9.5-12.9 65538-3) NRBC/100 WBC (test See_Comment [Automat ed code = [id number]) message] The system which generated this result transmitted reference range : 0.0 - 10.0 /100 WBCs. The refer ence range was not u sed to interpret th is result as normal/abnormal . NRBC x10^3 (test code See_Comment [Auto mated = [id number]) message] The s ystem which generated this result transmitted reference range : 10*3/?L. The reference range was not used to interpret this result as normal/abnormal . GRAN MAT (NEUT) % 72.7 % (test code = 770-8) IMM GRAN % (test code 1.30 % = [id number]) LYMPH % (test code = 16.8 % 736-9) MONO % (test code = 6.7 % 5905-5) EOS % (test code = 2.3 % 713-8) BASO % (test code = 0.2 % 706-2) GRAN MAT x10^3(ANC) 6.67 10*3/uL 1.88-7.09 (test code = 6254423210) IMM GRAN x10^3 (test 0.12 10*3/uL 0.00-0.06 H code = 3131829581) LYMPH x10^3 (test code 1.54 10*3/uL 1.32-3.29 = 731-0) MONO x10^3 (test code 0.61 10*3/uL 0.33-0.92 = 742-7) EOS x10^3 (test code = 0.21 10*3/uL 0.03-0.39 711-2) BASO x10^3 (test code 0.01-0.07 = 704-7) Lab Interpretation Abnormal (test code = 55031-9) [facility] HEMO [id number] 12:29:12 Test Item Value Reference Range Interpretation Comments SCREEN (test Negative Performed at [facility] code = 846) Laboratory Serv [facility] Blood [address], [place] [address]Gfym Free: [phone] A No. [id number] RHIG REQUIRED? 1 Syringe baby rh posPe rformed at (test code = 1747) [facility] Blood Ban [address] [facility] [place] [facility] s [address]Jxjp Free: [phone] A No. [id number] [facility] HospitalRHO (D) IMMUNE [id number] 19:43:42 Test Item Value Reference Range Interpretation Comments RHIG CANDIDATE? (test Yes- see A Patien t is a code = 5055) comment candidate for RhIg- Patient i s Rh Negative and baby is Rh Positive.Perfor me d at [facility] Laboratory [facility] Blood [address] [facility] [place] [facility] s [address]Amky Free: [phone] A No. [id number] Lab Interpretation Abnormal (test code = 74780-6) [facility] HospitalARTER[facility] CORD [id number] 17:18:47 Test Item Value Reference Range Interpretation Comments BASE EXCESS, CORD mEq/L QUES (test code = 6616524878) AC PH, CORD (BEAKER) 7.18-7.38 (test code = 2926840629) PC02, CORD (test code See_Comment [Auto mated message] The = 5936116381) system which g enerated this result transmit con reference range : 32 - 66 mmHg. The refer ence range was not used to interpret this result as normal/abnormal . PO2, CORD (test code See_Comment [Autom ated message] The = 6076516048) system which g enerated this result transmit con reference range : 10 - 30 mmHg. The refer ence range was not used to interpret this result as normal/abnormal . BICARBONATE, CORD See_Comment [Automate d message] The (test code = system which ge nerated this 1889781517) result transmit con reference range : 17 - 27 mEq/L. The refe rence range was not used to interpret this result as normal/abnormal . [facility] HospitalVENOUS CORD [id number] 17:17:10 Test Item Value Reference Range Interpretation Comments VENOUS BASE EXCESS, mEq/L CORD (test code = 9154093140) VENOUS PH, CORD (test 7.25-7.45 code = 9309691522) VENOUS PC02, CORD See_Comment [Automate d message] The (test code = system which ge nerated 5973662681) this result tra nsmitted reference range : 27 - 49 mmHg. The refer ence range was not used to interpret this result as normal/abnormal . VENOUS PO2, CORD (test See_Comment [Aut omated message] The code = 9545402732) system wh ich generated this result tra nsmitted reference range : 17 - 41 mmHg. The refer ence range was not used to interpret this result as normal/abnormal . VENOUS BICARBONATE, See_Comment QUES [Au tomated message] CORD (test code = The system which generated 8406058211) this result tra nsmitted reference range : 12 - 29 mEq/L. The refe rence range was not used to interpret this result as normal/abnormal . [facility] HospitalGAL ONLY - SYPHILIS [id number] 17:00:56 Test Item Value Reference Range Interpretation Comments Syphilis IgG/IgM (test Non-reactive Non-reactive code = 19634-1) MARCELLE (test code = MARCELLE) Non-reactive - No serologic evidence of T. pallidum infection. Cannot exclude incubating or early syphilis. Submit a second specimen in 2-4 weeks if syphilis is clinically suspected. Equivocal - Further testing to follow. Reactive - Further testing to follow. Lab Interpretation (test Normal code = 05259-1) [facility] HospitalHIV 1/2 AG-AB WITH [id number] 02:53:04 Test Item Value Reference Range Interpretation Comments HIV Negative Negative Semi-quantitative (test code = 00463-2) MARCELLE (test code = Non-reactive for HIV-1 MARCELLE) antigen and HIV-1/HIV-2 antibodies. ?No laboratory evidence of HIV infection. ?Repeat in 2-4 weeks if acute HIV infection is suspected. [facility] HospitalType and Screen - ONCE [id number] 01:21:03 Test Item Value Reference Range Interpretation Comments ABO & RH (test code O NEGATIVE Performe d at [facility] = 20) Laboratory [facility] Blood [facility]3 [address] [facility] [place] [facility] s [address]Pmkg Free: [phone] A No. [id number] IAT (test code = Positive Performed a t [facility] 1185) [facility] Blood [facility]3 [address] [facility] [place] [facility] s [address]Icoi Free: [phone] A No. [id number] [facility] HospitalANTI-D R/O [id number] 01:21:03 Test Item Value Reference Range Interpretation Comments ANTIBODY (test Anti-D Probable RHIG given on code = 683) RhIg 01/02/22[facility] [address] [facility] [place] [facility] s [address]Zmos Free: [phone] A No. [id number] [facility] HospitalHepatitis B Surface [id number] 00:41:53 Test Item Value Reference Range Interpretation Comments HBsAg Semi-Quantitative (test code = Negative Negative 5195-3) [facility] HospitalCB with [id number] 23:41:21 Test Item Value Reference Range Interpretation [...] RDW-SD (test code = 43.6 fL 39.0-49.9 95527-2) RDW-CV (test code = 14.1 % 12.0-15.5 788-0) PLT (test code = See_Comment [Automated 777-3) message] The sy stem which generated this result transmitted reference range : 166 - 358 10*3/ ?L. The reference r david was not used to interpret this result as normal/abnormal . MPV (test code = 10.8 fL 9.5-12.9 66054-2) NRBC/100 WBC (test See_Comment [Automat ed code = 4027011555) message] The system which generated this result transmitted reference range : 0.0 - 10.0 /100 WBCs. The refer ence range was not u sed to interpret th is result as normal/abnormal . NRBC x10^3 (test code See_Comment [Auto mated = 9902426917) message] The s ystem which generated this result transmitted reference range : 10*3/?L. The reference range was not used to interpret this result as normal/abnormal . GRAN MAT (NEUT) % 64.7 % (test code = 770-8) IMM GRAN % (test code 1.20 % = 6640722226) LYMPH % (test code = 25.1 % 736-9) MONO % (test code = 7.4 % 5905-5) EOS % (test code = 1.3 % 713-8) BASO % (test code = 0.3 % 706-2) GRAN MAT x10^3(ANC) 6.10 10*3/uL 1.88-7.09 (test code = 6220773683) IMM GRAN x10^3 (test 0.11 10*3/uL 0.00-0.06 H code = 1278644963) LYMPH x10^3 (test code 2.36 10*3/uL 1.32-3.29 = 731-0) MONO x10^3 (test code 0.70 10*3/uL 0.33-0.92 = 742-7) EOS x10^3 (test code = 0.12 10*3/uL 0.03-0.39 711-2) BASO x10^3 (test code 0.03 10*3/uL 0.01-0.07 = 704-7) Lab Interpretation Abnormal (test code = 61660-9) [facility] URINALYSIS W SPECIFIC [id number] 20:06:00 Test Item Value Reference Range Interpretation [...] POCT U APPEAR (test code = 3267) [facility] URINALYSIS W SPECIFIC [id number] 22:20:00 Test Item Value Reference Range Interpretation [...] U APPEAR (test code = 3267) . [facility] HospitalType and Screen - ONCE [id number] 23:17:31 Test Item Value Reference Range Interpretation Comments ABO & RH (test code O Negative Performe d at [facility] = 20) Laboratory [facility] Blood [address] [place], [place] [address]Toll Free: [phone] A No. [id number] IAT (test code = Positive Performed a t [facility] 1185) Laboratory [facility] Blood [address] [place], [place] [address]Toll Free: [phone] A No. [id number] [facility] HospitalCBC WITH [id number] 05:45:31 Test Item Value Reference Range Interpretation Comments WBC (test code = See_Comment [Automated 0128-2) message] The sy stem which generated this result transmitted reference range : 4.30 - 11.10 10*3/?L. The reference range was not used to interpret this result as normal/abnormal . RBC (test code = See_Comment [Automated 810-8) message] The sy stem which generated this [...] RDW-SD (test code = 43.4 fL 39.0-49.9 88434-6) RDW-CV (test code = 13.9 % 12.0-15.5 788-0) PLT (test code = See_Comment [Automated 777-3) message] The sy stem which generated this result transmitted reference range : 166 - 358 10*3/ ?L. The reference r david was not used to interpret this result as normal/abnormal . MPV (test code = 11.2 fL 9.5-12.9 83435-5) NRBC/100 WBC (test See_Comment [Automat ed code = 3672196729) message] The system which generated this result transmitted reference range : 0.0 - 10.0 /100 WBCs. The refer ence range was not u sed to interpret th is result as normal/abnormal . NRBC x10^3 (test code See_Comment [Auto mated = 5556833519) message] The s ystem which generated this result transmitted reference range : 10*3/?L. The reference range was not used to interpret this result as normal/abnormal . GRAN MAT (NEUT) % 67.3 % (test code = 770-8) IMM GRAN % (test code 1.00 % = 7350896986) LYMPH % (test code = 23.3 % 736-9) MONO % (test code = 7.1 % 5905-5) EOS % (test code = 1.0 % 713-8) BASO % (test code = 0.3 % 706-2) GRAN MAT x10^3(ANC) 5.85 10*3/uL 1.88-7.09 (test code = 3156056818) IMM GRAN x10^3 (test 0.09 10*3/uL 0.00-0.06 H code = 6389140531) LYMPH x10^3 (test code 2.03 10*3/uL 1.32-3.29 = 731-0) MONO x10^3 (test code 0.62 10*3/uL 0.33-0.92 = 742-7) EOS x10^3 (test code = 0.09 10*3/uL 0.03-0.39 711-2) BASO x10^3 (test code 0.03 10*3/uL 0.01-0.07 = 704-7) Lab Interpretation Abnormal (test code = 98355-7) [facility] WITH [id number] 05:45:31 Test Item Value Reference Range Interpretation [...] RDW-SD (test code = 43.4 fL 39.0-49.9 13489-6) RDW-CV (test code = 13.9 % 12.0-15.5 788-0) PLT (test code = See_Comment [Automated 777-3) message] The sy stem which generated this result transmitted reference range : 166 - 358 10*3/ ?L. The reference r david was not used to interpret this result as normal/abnormal . MPV (test code = 11.2 fL 9.5-12.9 46716-7) NRBC/100 WBC (test See_Comment [Automat ed code = 8450699999) message] The system which generated this result transmitted reference range : 0.0 - 10.0 /100 WBCs. The refer ence range was not u sed to interpret th is result as normal/abnormal . NRBC x10^3 (test code See_Comment [Auto mated = 9690074303) message] The s ystem which generated this result transmitted reference range : 10*3/?L. The reference range was not used to interpret this result as normal/abnormal . GRAN MAT (NEUT) % 67.3 % (test code = 770-8) IMM GRAN % (test code 1.00 % = 1334513040) LYMPH % (test code = 23.3 % 736-9) MONO % (test code = 7.1 % 5905-5) EOS % (test code = 1.0 % 713-8) BASO % (test code = 0.3 % 706-2) GRAN MAT x10^3(ANC) 5.85 10*3/uL 1.88-7.09 (test code = 7588166214) IMM GRAN x10^3 (test 0.09 10*3/uL 0.00-0.06 H code = 4759056715) LYMPH x10^3 (test code 2.03 10*3/uL 1.32-3.29 = 731-0) MONO x10^3 (test code 0.62 10*3/uL 0.33-0.92 = 742-7) EOS x10^3 (test code = 0.09 10*3/uL 0.03-0.39 711-2) BASO x10^3 (test code 0.03 10*3/uL 0.01-0.07 = 704-7) Lab Interpretation Abnormal (test code = 17322-4) [facility]CIFIC [id number] 20:37:00 Test Item Value Reference Range Interpretation [...] U APPEAR (test code = 3267) clear [facility] URINALYSIS W SPECIFIC [id number] 20:37:00 Test Item Value Reference Range Interpretation [...] U APPEAR (test code = 3267) clear [facility] URINALYSIS W SPECIFIC [id number] 20:37:00 Test Item Value Reference Range Interpretation [...] U APPEAR (test code = 3267) clear [facility] URINALYSIS W SPECIFIC [id number] 19:00:00 Test Item Value Reference Range Interpretation [...] U APPEAR (test code = 3267) . [facility] URINALYSIS W SPECIFIC [id number] 21:06:00 Test Item Value Reference Range Interpretation [...] U APPEAR (test code = 3267) clear [facility] URINALYSIS W SPECIFIC [id number] 16:34:00 Test Item Value Reference Range Interpretation [...] U APPEAR (test code = 3267) clear [facility] URINALYSIS W SPECIFIC [id number] 17:00:00 Test Item Value Reference Range Interpretation [...] U APPEAR (test code = 3267) cloudy [facility] URINALYSIS W SPECIFIC [id number] 18:51:00 Test Item Value Reference Range Interpretation [...] 3267) Lab Interpretation (test code = Abnormal 71406-8) [facility] URINALYSIS W SPECIFIC [id number] 19:16:00 Test Item Value Reference Range Interpretation [...] POCT U APPEAR (test code = 3267) [facility] URINALYSIS W SPECIFIC [id number] 18:26:00 Test Item Value Reference Range Interpretation [...] clear Lab Interpretation (test code = Normal 97732-2) [facility] URINALYSIS W SPECIFIC [id number] 20:47:00 Test Item Value Reference Range Interpretation [...] POCT U APPEAR (test code = 3267) [facility] URINALYSIS W SPECIFIC [id number] 19:47:00 Test Item Value Reference Range Interpretation [...] POCT U APPEAR (test code = 3267) [facility] URINALYSIS W SPECIFIC [id number] 19:47:00 Test Item Value Reference Range Interpretation [...] POCT U APPEAR (test code = 3267) [facility] URINALYSIS W SPECIFIC [id number] 13:14:00 Test Item Value Reference Range Interpretation [...] U APPEAR (test code = 3267) . [facility] URINALYSIS W SPECIFIC [id number] 13:14:00 Test Item Value Reference Range Interpretation [...] U APPEAR (test code = 3267) . [facility] URINALYSIS W SPECIFIC [id number] 13:14:00 Test Item Value Reference Range Interpretation [...] U APPEAR (test code = 3267) . [facility] URINALYSIS W SPECIFIC [id number] 13:14:00 Test Item Value Reference Range Interpretation [...] U APPEAR (test code = 3267) . [facility] URINALYSIS W SPECIFIC [id number] 13:14:00 Test Item Value Reference Range Interpretation [...] U APPEAR (test code = 3267) . [facility] URINALYSIS W SPECIFIC [id number] 13:14:00 Test Item Value Reference Range Interpretation [...] U APPEAR (test code = 3267) . [facility] URINALYSIS W SPECIFIC [id number] 13:14:00 Test Item Value Reference Range Interpretation [...] U APPEAR (test code = 3267) . [facility] URINALYSIS W SPECIFIC [id number] 13:14:00 Test Item Value Reference Range Interpretation [...] U APPEAR (test code = 3267) . [facility] URINALYSIS W SPECIFIC [id number] 13:14:00 Test Item Value Reference Range Interpretation [...] U APPEAR (test code = 3267) . [facility] [id number] 18:22:00 Test Item Value Reference Range Interpretation Comments LITHIUM LEVEL (BEAKER) 0.8 mmol/L 0.8-1.2 (test code = 630) SCAN RESULT (test code = See Scanned Report [id number]) NE, [id number] 14:13:01Reason for exam:->abnormal imaging [facility] 1995 Sex: FFluoroscopic unit utilized for a procedure performed in the OR. No interpretation was requested. Refer to the operative report for findings. Refer to PACS for patient radiation dose information.COMPREHENSIVE METABOLIC [id number] 06:43:00 Test Item Value Reference Range Interpretation [...] S NOT APPLICABLE FOR DIALYSIS PATIEN TS. Hot Head Machine Operator ID - MADISON MC (HEMOGRAM ONLY)2020-09-24 06:04:00 [...] (BEAKER) (test code = 413) COMPREHENSIVE METABOLIC [id number] 07:06:00 Test Item Value Reference Range Interpretation [...] S NOT APPLICABLE FOR DIALYSIS PATIEN TS. Hot Head Machine Operator ID - PIAYA LCBC (HEMOGRAM [...] (BEAKER) (test code = 413) COMPREHENSIVE METABOLIC [id number] 08:27:00 Test Item Value Reference Range Interpretation [...] S NOT APPLICABLE FOR DIALYSIS PATIEN TS. Hot Head Machine Operator ID - MADISON [id number] 08:27:00 Test Item Value Reference Range Interpretation Comments MAGNESIUM (BEAKER) (test code = 2.4 mg/dL 1.6-2.6 627) Hot Head Machine Operator ID - MADISON MPROTHROMBIN TIME/[id number] 07:59:00 Test Item Value Reference Range Interpretation Comments PROTIME (BEAKER) 13.0 seconds 11.9-14.2 (test code = 759) INR (BEAKER) (test 1.00 See_Comment [Automat ed message] code = 370) The system [employer] generated this result transmitted ref erence range: <=5.90. The reference range was not used to int erpret this result as normal/abnormal . RECOMMENDED COUMADIN/WARFARIN INR THERAPY RANGESSTANDARD DOSE: 2.0 - 3.0 Includes: PROPHYLAXIS for venous thrombosis, systemic embolization; TREATMENT for venous thrombosis and/or pulmonary embolus.HIGH RISK: Target INR is 2.5-3.5 for patients with mechanical heart valves.CBC W/PLT COUNT & AUTO [id number] 07:49:00 Test Item Value Reference Range Interpretation [...] 0-1 H PERCENT (BEAKER) (test code = 7081)"
[2022-07-08] MEDS ORDERED: METOCLOPRAMIDE 10 MG/2mL INJ ONE (23:40)
[2022-07-08] MEDS ORDERED: NA CHLORIDE 0.9% 1,000 ML ONE (23:40)
[2022-07-08] MEDS ORDERED: DIPHENHYDRAMINE 50 MG/ML VIAL ONE (23:40)
--- NOTE | 2022-07-09 01:23 | ER ---
Nurse's Notes [facility] Name: Mile Wang Age: 27 yrs Sex: Female : 1995 Arrival Date: 07/08/2022 Time: 21:24 Bed 10 Private MD: Diagnosis: Vomiting Presentation: 07/08 21:52 Chief complaint: Patient states: I haven't been able to keep anything down, I have been vc1 throwing up a lot, my ears hurt my throat hurts Im getting lightheaded and my vision gets blurry. Coronavirus screen: Vaccine status: Patient reports receiving the 2nd dose of the covid vaccine. [employer] Client denies travel out of the [place] in the last 14 days. At this time, the client does not indicate any symptoms associated with coronavirus-19. Ebola Screen: Patient negative for fever greater than or equal to 101.5 degrees Fahrenheit, and additional compatible Ebola Virus Disease symptoms Patient denies exposure to infectious person. Patient denies travel to an Ebola-affected area in the 21 days before illness onset. No symptoms or risks identified at this time. Initial Sepsis Screen: Does the patient meet any 2 criteria? No. Patient's initial sepsis screen is negative. Does the patient have a suspected source of infection? No. Patient's initial sepsis screen is negative. Risk Assessment: Do you want to hurt yourself or someone else? Patient reports no desire to harm self or others. Onset of symptoms is unknown. 21:52 Method Of Arrival: Ambulatory vc1 21:52 Acuity: BAIRON 4 vc1 Triage Assessment: 21:57 General: Appears. 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 - Social history:: Smoking status: Patient denies any tobacco usage or history of. Screenin:56 Abuse screen: Denies threats or abuse. Nutritional screening: No deficits noted. vc1 Tuberculosis screening: No symptoms or risk factors identified. 23:00 [facility] ED Fall Risk Assessment (Adult) History of falling in the last 3 months, vc1 including since admission No falls in past 3 months (0 pts) Confusion or Disorientation No (0 pts) Intoxicated or Sedated Yes (3 pts) Impaired Gait No (0 pts) Mobility Assist Device Used No (0 pt) Altered Elimination No (0 pt) Score/Fall Risk Level 0 - 2 = Low Risk Oriented to surroundings, Maintained a safe environment, Educated pt \T\ family on fall prevention, incl call for assistance when getting out of bed. Assessment: 07/09 01:49 Pain:. GI: Abdomen is flat, non-distended. vc1 Vital Signs: 07/08 21:52 BP 122 / 90; Pulse 66; Resp 18; Temp 98.5; Pulse Ox 99% ; Weight 90.72 kg; Height 5 ft. vc1 3 in. ; Pain 7/10; 07/09 01:47 BP 116 / 90; Pulse 70; Resp 16; Temp 98.3; Pulse Ox 97% ; ds4 07/08 21:52 Body Mass Index 35.43 (90.72 kg, 160.02 cm) vc1 07/08 21:52 Pain Scale: Adult vc1 ED Course: 07/08 21:27 Patient arrived in ED. mr 21:44 Benny Pérez PA is PHCP. [facility] 21:44 Prosper Rocha MD is Attending Physician. [facility] 21:56 Triage completed. vc1 21:56 Arm band placed on right wrist. vc1 23:00 Patient has correct armband on for positive identification. Bed in low position. Call vc1 light in reach. 23:06 Inserted saline lock: 24 gauge in right antecubital area, using aseptic technique. ds4 07/09 01:46 IV discontinued, intact, bleeding controlled, No redness/swelling at site. Pressure ds4 dressing applied. 01:48 Sudha Alejandre, JUAN M is Primary Nurse. vc1 01:48 No provider procedures requiring assistance completed. vc1 Administered Medications: 07/08 23:42 Not Given (Patient Refused): diphenhydrAMINE IVP 12.5 mg IVP once cg 23:43 Drug: NS 0.9% IV 1000 ml Route: IV; Rate: 1000 ml; Site: right antecubital; cg 23:43 Drug: metoCLOPramide IVP 10 mg Route: IVP; Site: right antecubital; cg Medication: 07/09 01:50 VIS not applicable for this client. vc1 Outcome: 01:22 Discharge ordered by MD. garza 01:50 Discharged to home ambulatory. vc1 01:50 Condition: good 01:50 Discharge instructions given to patient, Instructed on discharge instructions, follow up and referral plans. medication usage, Demonstrated understanding of instructions, follow-up care, medications, Prescriptions given X 2. 01:52 Patient left the ED. vc1 Signatures: Benny Pérez PA PA jmm RiveraBeth mr FayMalcolm ds4 Amy Miramontes, RN RN Sudha Alejandre RN RN vc1 Corrections: (The following items were deleted from the chart) 07/08 21:56 21:56 PMHx: stent in gallbladder; vc1 vc1 07/09 02:32 02:32 Patient left the ED. vc1 vc1
--- NOTE | 2022-07-09 01:23 | EDPHYS ---
Physician Documentation [facility] Name: Mile Wang Age: 27 yrs Sex: Female : 1995 Arrival Date: 07/08/2022 Time: 21:24 Bed 10 Private MD: ED Physician Prosper Rocha HPI: 07/08 21:50 This 27 yrs old Female presents to ER via Ambulatory with complaints of 10 wks jmm , Vomiting, Ear Pain, Sore Throat. 21:50 The patient presents to the emergency department with nausea, vomiting. Onset: The jmm symptoms/episode began/occurred gradually. Possible causes: . The symptoms are aggravated by nothing. The symptoms are alleviated by nothing. Associated signs and symptoms: Pertinent negatives: fever. The patient has experienced similar episodes in the past. Patient states she is currently 10 weeks prescribed promethazine and zofran with no relief. . 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 - Social history:: Smoking status: Patient denies any tobacco usage or history of. ROS: 21:50 Constitutional: Negative for fever, chills, and weight loss, Cardiovascular: Negative jmm for chest pain, palpitations, and edema, Respiratory: Negative for shortness of breath, cough, wheezing, and pleuritic chest pain. 21:50 Abdomen/GI: Positive for vomiting. 21:50 All other systems are negative. Exam: 21:50 Constitutional: This is a well developed, well nourished patient who is awake, alert, jmm and in no acute distress. Head/Face: atraumatic. Eyes: EOMI, no conjunctival erythema appreciated ENT: Moist Mucus Membranes Neck: Trachea midline, Supple Chest/axilla: Normal chest wall appearance and motion. Cardiovascular: Regular rate and rhythm. No edema appreciated Respiratory: Normal respirations, no respiratory distress appreciated Abdomen/GI: Non distended Skin: General appearance color normal MS/ Extremity: Moves all extremities, no obvious deformities appreciated, no edema noted to the lower extremities Neuro: Awake and alert Psych: Behavior is normal, Mood is normal, Patient is cooperative and pleasant Vital Signs: 21:52 BP 122 / 90; Pulse 66; Resp 18; Temp 98.5; Pulse Ox 99% ; Weight 90.72 kg; Height 5 ft. vc1 3 in. ; Pain 7/10; 07/09 01:47 BP 116 / 90; Pulse 70; Resp 16; Temp 98.3; Pulse Ox 97% ; ds4 07/08 21:52 Body Mass Index 35.43 (90.72 kg, 160.02 cm) vc1 07/08 21:52 Pain Scale: Adult vc1 MDM: 07/08 21:50 Patient medically screened. greg 07/09 01:18 Differential diagnosis: hyperemesis. Data reviewed: vital signs, nurses notes. I greg considered the following discharge prescriptions or medication management in the emergency department Medications were administered in the Emergency Department. See MAR. Counseling: I had a detailed discussion with the patient and/or guardian regarding: the historical points, exam findings, and any diagnostic results supporting the discharge/admit diagnosis, the need for outpatient follow up, to return to the emergency department if symptoms worsen or persist or if there are any questions or concerns that arise at home. ED course: Patient is alert and non toxic in appearance in the ED. Patient states feeling better after IVF. Advised to follow up with pcp and otherwise given strict return precautions. Patient understood and agrees with the plan of care. . Administered Medications: 07/08 23:42 Not Given (Patient Refused): diphenhydrAMINE IVP 12.5 mg IVP once cg 23:43 Drug: NS 0.9% IV 1000 ml Route: IV; Rate: 1000 ml; Site: right antecubital; cg 23:43 Drug: metoCLOPramide IVP 10 mg Route: IVP; Site: right antecubital; cg Disposition: 07/09 04:52 Co-signature as Attending Physician, Prosper Rocha MD I reviewed the patient's care rt provided by the Advanced Practice Provider and agree with the diagnosis and treatment plan. Disposition Summary: 07/09/22 01:22 Discharge Ordered Location: Home [facility] Condition: Stable jmm Diagnosis - Vomiting jmm Followup: jmm - With: Private Physician - When: 2 - 3 days - Reason: Recheck today's complaints, Continuance of care, Re-evaluation by your physician Discharge Instructions: - Discharge Summary Sheet jm - Hyperemesis Gravidarum [facility] Forms: - Medication Reconciliation Form [facility] - Thank You Letter [facility] - Antibiotic Education [facility] - Prescription Opioid Use [facility] - Work release form rv1 Prescriptions: - Diclegis 10-10 mg Oral tablet, delayed release (enteric coated) - take 1 tablet by ORAL route 3 times per day; 30 tablet; Refills: 0, Product [facility] Selection Permitted - Reglan 10 mg Oral Tablet - take 1 tablet by ORAL route every 6 hours As needed take 30 minutes before jmm meals and at bedtime; 20 tablet; Refills: 0, Product Selection Permitted Signatures: Benny Pérez PA PA jmm Garcia, Cindy, RN RN cg Sudha Alejandre RN RN vc1 Prosper Rocha MD MD rt Corrections: (The following items were deleted from the chart) 07/08 21:56 21:56 PMHx: stent in gallbladder; vc1 vc1
[2022-07-09 03:12] VITALS: BP 116/90; TEMP 98.3; O2SAT 97
== END 2022-07-09 02:32 | disposition home or self-care (01) ==
LOC: ER 21:24
DX: O21.9 Vomiting of pregnancy, unspecified (principal); Z3A.09 9 weeks gestation of pregnancy; Z88.1 Allergy status to other antibiotic agents; Z88.5 Allergy status to narcotic agent; Z88.8 Allergy status to other drugs, medicaments and biological substances
CPT/HCPCS: J2765; J7030; 96374; 99284; J1200

== ENCOUNTER 2022-08-20 16:14 | Emergency (ER) | payer BC, OTHER ==
--- OUTSIDE RECORDS SUMMARY | 2022-08-20 16:30 | XMS REPORT | Continuity of Care Document ---
:1995 Author Organization [facility] t Address [address] [facility] [address] [place] [address] Care Team Providers Name Role Phone Asked, No Pcp Primary Care Physician Unavailable JOANNE PARKINSON Attending Clinician Unavailable Alma Vasquez Attending Clinician [phone] ZEN CORREA Attending Clinician Unavailable ZEN CORREA Attending Clinician Unavailable [facility] Att[facility] Clinician Unavailable Javan DOLL, Akosua Begum Attending Clinician 1, [facility] Room Attending Clinician Unavailable ALMA SOLIS Attending Clinician Unavailable Mallory Carroll Attending Clinician CHIQUIS KATE Attending Clinician Unavailable CHIQUIS KATE Attending Clinician Unavailable Chiquis Kate MD Attending Clinician RADHA NOBLES Attending Clinician Unavailable DARIELA JACOB Attending Clinician Unavailable Dariela Jacob MD Attending Clinician Radha Nobles CNM Attending Clinician Renee, Reddy [facility] Attending Clinician Unavailable Seth Kay MD Attending Clinician NIESHA SETH [place] Attending Clinician Unavailable Doctor Unassigned, Mullan Attending Clinician Unavailable KIARRA ARIZMENDI Attending Clinician Unavailable Ugo GELATIN PL[employer] SUPERVISORKiarra Herrera Attending Clinician CTBRUCE Attending Clinician Unavailable MAU RHOADES Attending Clinician Unavailable Nurse, [facility] Attending Clinician Unavailable Unknown, Attending Attending Clinician Unavailable Provider, Ang-Rmchp Temp Attending Clinician Unavailable COLT MICHAELS Attending Clinician Unavailable Dennys Lara MD Attending Clinician RAVEN GOLDSMITH Attending Clinician Unavailable Raven Goldsmith MD Attending Clinician Katerin TAYLOR, Eladia Thorpe Attending Clinician [phone] Nory Jiménez DO Attending Clinician Martha Agarwal MD Attending Clinician KEVIN SINGH Attending Clinician Unavailable Risk, Skp-Xqfzi-Ez/High Attending Clinician Unavailable Kevin Colbert Attending Clinician DENNYS LARA Attending Clinician Unavailable Areli Patel DO Attending Clinician AMY SHARMA Attending Clinician Unavailable Amy Jacob Attending Clinician Pob, [facility] Main Attending Clinician Unavailable Neal Reed MD Attending Clinician [phone] NEAL REED Attending Clinician Unavailable Trever Hernandez Attending Clinician LUKE FISH Attending Clinician Unavailable Luke Fish MD Attending Clinician ARELI PATEL Attending Clinician Unavailable Zamzam MCGOWAN, Vijaya Whelan Attending Clinician Unavailable Ultrasound, Ang-Mfm Attending Clinician Unavailable TREVER KATZ Attending Clinician Unavailable Anton Renteria MD Attending Clinician ANTON RENTERIA Attending Clinician Unavailable Abena Gonzalez Attending Clinician ABENA PATEL Attending Clinician Unavailable RICHARD ANDERSON Attending Clinician Unavailable RICHARD ANDERSON Attending Clinician Unavailable ANGELO KENNEY Attending Clinician Unavailable Angelo Kenney MD Attending Clinician BERTHA LANDAVERDE S Attending Clinician Unavailable Tyra PAC, Bertha S Attending Clinician Richard Anderson MD Attending Clinician ARMEN RODRIGUEZ Attending Clinician Unavailable Armen Rodriguez MD Attending Clinician Lab, [facility] Attending Clinician Unavailable LILIANA SALINAS Attending Clinician [...] Attending Clinician Santosh Simon DO Attending Clinician Visit, [facility] Nurse Attending Clinician Unavailable Kevin Miramontes RN Attending Clinician Unavailable TISH NEVAREZ Attending Clinician Unavailable Tish Joyner Attending Clinician LORY URBINA I Attending Clinician Unavailable Liz Urbina DOissa I Attending Clinician LUKE FISH Admitting Clinician [...] Number Effective Date Expiration Date Piyush sofia [facility] [id number] 2021 00:00:00 [facility] [id number] 2017 CHOICE [place] STAR 00:00:00 Problems Condition Condition Condition Status Onset Resolution Last Treating Co mments Source Name Details Category Date Date Treatment Clinician Date Nausea and Nausea and Disease Active U nivers vomiting vomiting 5-02 ity of in in 00:00: [place] 00 [facility] Attention Attention Disease Active Uni vers deficit deficit 4-11 [place] hyper[place] 00 Medical disorder disorder Branch (ADHD), (ADHD), unspecifie unspecifie d ADHD d ADHD type type Anemia, Anemia, Disease Active 2021-03 Univers 2-27 it y of 00:00: [place] [facility] 37 weeks 37 weeks Disease Active 2021-03 Unive rs gestation gestation 2-05 ity of of of 00:00: [place] 00 [facility] Seizure Seizure Disease Active 2021-03 Univers 1-24 ity of 00:00: [place] [facility] Disease Active 2021-03 Uni vers with with 0-11 ity of adoption adoption 00:00: [place] planned planned 00 [facility] URI (upper URI (upper Disease Active U nivers respirator respirator 9-25 it y of y y 00:00: [place] infection) infection) 00 [facility] 27 weeks 27 weeks Disease Active Unive rs gestation gestation 9-25 ity of of of 00:00: [place] 00 [facility] Round Round Disease Active Univers ligament ligament 9-25 ity of pain pain 00:00: [place] 00 [facility] BMI BMI Disease Active Univers 35.0-35.9, 35.0-35.9, 9-23 it y of adult adult 00:00: [place] [facility] Elevated Elevated Disease Active Unive rs blood blood 8-09 ity of pressure pressure 00:00: [place] reading reading 00 Medical without without Branch diagnosis diagnosis of of hypertensi hypertensi on on Atypical Atypical Disease Active Overview: Un aubree squamous squamous -19 [place] ity of cells of cells of 00:00: g of this [place] as undetermin undetermin 00 note Me dical ed ed might be Branch significan significan different ce (ASCUS) ce (ASCUS) from the on on original. Papanicola Papanicola Repeat ou smear ou smear pap in of cervix of cervix 1yr 07/2022 History of History of Disease Active Overview : Univers abnormal abnormal 07-25 [place] ity of cervical cervical 00:00: g of this [place] as Pap smear Pap smear 00 note Medi tressa might be Branch different from the original. 05/2018 negative pap 2 ASCUS04/2 023 negative pap, routine screening Supervisio Supervisio Disease Active U nivers n of n of 5-05 ity of high-risk high-risk 00:[place] Branch History of History of Disease Active Overview : Univers anxiety anxiety 5-05 [place] ity o f 00:00: g of this [place] 00 note Medical might be Branch different from the original. Reports on buspirone Multiparit Multiparit Disease Active U nivers y y 5-05 ity of 00:00: [place] 00 Medical Branch Obesity in Obesity in Disease Active U nivers 5-05 ity of 00:00: [place] 00 Medical Branch Depression Depression Disease Active Overview : Univers affecting affecting 5-05 Formatt[place] i ty of , , 00:00: g of this [place] antepartum antepartum 00 note Me dical might be Branch different from the original. Reports on buspirone Frequent Frequent Disease Active Unive rs UTI UTI 8-03 ity of 00:00: [place] 00 Medical Branch Seizure Seizure Disease Active Overview: Univ ers disorder disorder - [place] ity of in in 00:00: g of this [place] 00 note Medi tressa might be Branch different from the original. Last episode 2 months ago , not on meds Abdominal Abdominal Disease [facility] Abnormal Abnormal Disease [facility] UTI UTI Disease Active Univers symptoms symptoms 4- ity of 00:00: Medical Branch Abnormal Abnormal Disease Active Unive rs EKG EKG 10-08 ity of 00:00: Medical Branch Anxiety Anxiety Disease Active Univers during during 6- [place] third [...] Overview : Univers e to e to 08-21 [place] ity of varicella varicella 00:00: [place] (non-immun (non-immun 00 note Me dical e), e), might be Branch currently currently different from the original. Address pp Vaginal Vaginal Disease Active Univers discharge discharge - ity of 00:00: Medical Branch Chlamydia Chlamydia Disease Active Uni vers 5-10 ity of 00:00: [place] [facility] Bipolar Bipolar Disease Active Overview: Univ ers disease disease 5- Formattin ity o f during during 00:00: g of this [place] 00 note Medi tressa might be Branch different from the original. D/c lithium 3 weeks ago Seizure Seizure Disease Active 2015-03 Overview: Univ ers disorder disorder 2-09 Form[place] ity of 00:00: g of this [place] 00 note Medical might be Branch different from the original. Epilepsy x's 2 years. Had genetic counselin g 01/18/16 per [place] [facility]see external records-p age 20-21 Allergies, Adverse Reactions, Alerts Allergy Allergy Status Severity Reaction(s) Onset Inactive Treating Comm ents Source Name Type Date Date Clinician Nitrofur Propensi Active Palpitations Univers antoin ty to 8 ity of Monohyd/ adverse 00:00: [place] M-Cryst [...] Medical Branch DOXYCYCL Allergy Active High Hives 2020-[address] [facility]E [facility] TRAMADOL Allergy Active Other 2020-[address] [facility] [facility] Social History Social Habit Start Date Stop Date Quantity Comments Source ASSERTION 2022-05-25 University of 00:00:00 [facility] [place] [facility] History SDOH [facility] Alcohol Comment Medical C enter History SDOH [facility] Alcohol Std Drinks Medica l Center History SDOH [facility] Alcohol Binge Medical Z[address] Gender identity [facility] Sexual orientation Method ist Hospital Exposure to 2022-07-05 2022-07-15 Not sure University SARS-CoV-2 (event) 00:00:00 14:40:00 [facility] [place] [facility] Tobacco use and 2021-10-07 2021-10-07 Smokeless Universit y of exposure 00:00:00 00:00:00 tobacco non-user [facility] Alcohol intake 2020-09-24 2020-09-24 Ex-drinker [facility] (finding) [facility] Center History SDOH 2020-09-22 2020-09-[address] [facility] Alcohol Frequency 00:00:00 00:00:00 Medical Center History of Social 2019-01-02 2019-01-[address] function 00:00:00 00:00:00 Hospital Sex Assigned At [birth year] [facility] 00:00:[facility]:00 [facility] Smoking Status Start Date Stop Date Source Never smoked tobacco [facility] Medications Ordered Filled Start Stop Current Ordering Indication Dosage Frequency Signature Comments Components Source Medication Medication Date Date Medication? Clinician (SIG) Name Name NaCl 0.9% 2022- No 1000mL at 999 Uni vers (NS) bolus 07-15 05-09 mL/hr, ity of infusion 20:45: 21:40 1,000 mL, [place] 1,000 mL 00 :00 IV Medical Infusion, Branch ONCE, 1 dose, On Thu07/15/22 at 1545, STAT doxylamine- 2022-0 Yes [id number] Day 1: Univers pyridoxine, 5-02 Take 2 ity of vit B6, 00:00: tablet [place] (DICLEGIS) 00 before Medical 10-10 mg bed. Day Branch per tablet 2: If still having nausea and vomiting 2 tablet bed. Day 3 take 1 tablet in am and 2 tablet at bed doxylamine- 2022-0 Yes [id number] Day 1: Univers pyridoxine, 5-02 Take 2 ity of vit B6, 00:00: tablet [place] (DICLEGIS) 00 before Medical 10-10 mg bed. Day Branch per tablet 2: If still having nausea and vomiting 2 tablet bed. Day 3 take 1 tablet in am and 2 tablet at bed doxylamine- 2023-0 Yes [id number] Day 1: Univers pyridoxine, 5-02 Take 2 ity of vit B6, 00:00: tablet [place] (DICLEGIS) 00 before Medical 10-10 mg bed. Day Branch per tablet 2: If still having nausea and vomiting 2 tablet bed. Day 3 take 1 tablet in am and 2 tablet at bed doxylamine- 2023-0 Yes [id number] Day 1: Univers pyridoxine, 5-02 Take 2 ity of vit B6, 00:00: tablet [place] (DICLEGIS) 00 before Medical 10-10 mg bed. Day Branch per tablet 2: If still having nausea and vomiting 2 tablet bed. Day 3 take 1 tablet in am and 2 tablet at bed doxylamine- 2023-0 Yes [id number] Day 1: Univers pyridoxine, 5-02 Take 2 ity of vit B6, 00:00: tablet [place] (DICLEGIS) 00 before Medical 10-10 mg bed. Day Branch per tablet 2: If still having nausea and vomiting 2 tablet bed. Day 3 take 1 tablet in am and 2 tablet at bed doxylamine- 3-0 Yes [id number] Day 1: Univers pyridoxine, 5-02 Take 2 ity of vit B6, 00:00: tablet [place] (DICLEGIS) 00 before Medical 10-10 mg bed. Day Branch per tablet 2: If still having nausea and vomiting 2 tablet bed. Day 3 take 1 tablet in am and 2 tablet at bed doxylamine- 3-0 Yes [id number] Day 1: Univers pyridoxine, 5-02 Take 2 ity of vit B6, 00:00: tablet [place] (DICLEGIS) 00 before Medical 10-10 mg bed. Day Branch per tablet 2: If still having nausea and vomiting 2 tablet bed. Day 3 take 1 tablet in am and 2 tablet at bed doxylamine- 2023-0 Yes [id number] Day 1: Univers pyridoxine, 5-02 Take 2 ity of vit B6, 00:00: tablet [place] (DICLEGIS) 00 before Medical 10-10 mg bed. Day Branch per tablet 2: If still having nausea and vomiting 2 tablet bed. Day 3 take 1 tablet in am and 2 tablet at bed doxylamine- 2023-0 Yes [id number] Day 1: Univers pyridoxine, 5-02 Take 2 ity of vit B6, 00:00: tablet [place] (DICLE[place]) 00 before Medical 10-10 mg bed. Day Branch per tablet 2: If still having nausea and vomiting 2 tablet bed. Day 3 take 1 tablet in am and 2 tablet at bed doxylamine- 2023-0 Yes [id number] Day 1: Univers pyridoxine, 5-02 Take 2 ity of vit B6, 00:00: tablet [place] (DICLEGIS) 00 before Medical 10-10 mg bed. Day Branch per tablet 2: If still having nausea and vomiting 2 tablet bed. Day 3 take 1 tablet in am and 2 tablet at bed doxylamine- 2023-0 Yes [id number] Day 1: Univers pyridoxine, 5-02 Take 2 ity of vit B6, 00:00: tablet [place] (DICLEGIS) 00 before Medical 10-10 mg bed. Day Branch per tablet 2: If still having nausea and vomiting 2 tablet bed. Day 3 take 1 tablet in am and 2 tablet at bed doxylamine- 2023-0 Yes [id number] Day 1: Univers pyridoxine, 5-02 Take 2 ity of vit B6, 00:00: tablet [place] (DICLEGIS) 00 before Medical 10-10 mg bed. Day Branch per tablet 2: If still having nausea and vomiting 2 tablet bed. Day 3 take 1 tablet in am and 2 tablet at bed doxylamine- 2023-0 Yes [id number] Day 1: Univers pyridoxine, 5-02 Take 2 ity of vit B6, 00:00: tablet [place] (DICLEGIS) 00 before Medical 10-10 mg bed. Day Branch per tablet 2: If still having nausea and vomiting 2 tablet bed. Day 3 take 1 tablet in am and 2 tablet at bed doxylamine- 2023-0 Yes [id number] Day 1: Univers pyridoxine, 5-02 Take 2 ity of vit B6, 00:00: tablet [place] (DICLEGIS) 00 before Medical 10-10 mg bed. Day Branch per tablet 2: If still having nausea and vomiting 2 tablet bed. Day 3 take 1 tablet in am and 2 tablet at bed doxylamine- 2023-0 Yes [id number] Day 1: Univers pyridoxine, 5-02 Take 2 ity of vit B6, 00:00: tablet [place] (DICLEGIS) 00 before Medical 10-10 mg bed. Day Branch per tablet 2: If still having nausea and vomiting 2 tablet bed. Day 3 take 1 tablet in am and 2 tablet at bed doxylamine- 3-0 Yes [id number] Day 1: Univers pyridoxine, 5-02 Take 2 ity of vit B6, 00:00: tablet [place] (DICLEGIS) 00 before Medical 10-10 mg bed. Day Branch per tablet 2: If still having nausea and vomiting 2 tablet bed. Day 3 take 1 tablet in am and 2 tablet at bed proMETHazin 3-0 Yes [id number] 25mg Take 1 Univers e 25 mg 4-19 tablet by ity of tablet 00:00: mouth [place] 00 every 6 Medical (six) Branch hours as needed for Nausea and Vomiting (N/V). proMETHazin 3-0 Yes [id number] 25mg Take 1 Univers e 25 mg 4-19 tablet by ity of tablet 00:00: mouth [place] 00 every 6 Medical (six) Branch hours as needed for Nausea and Vomiting (N/V). proMETHazin 3-0 Yes [id number] 25mg Take 1 Univers e 25 mg 4-19 tablet by ity of tablet 00:00: mouth [place] 00 every 6 Medical (six) Branch hours as needed for Nausea and Vomiting (N/V). proMETHazin 2023-0 Yes [id number] 25mg Take 1 Univers e 25 mg 4-19 tablet by ity of tablet 00:00: mouth [place] 00 every 6 Medical (six) Branch hours as needed for Nausea and Vomiting (N/V). proMETHazin 2023-0 Yes [id number] 25mg Take 1 Univers e 25 mg 4-19 tablet by ity of tablet 00:00: mouth [place] 00 every 6 Medical (six) Branch hours as needed for Nausea and Vomiting (N/V). proMETHazin 2023-0 Yes [id number] 25mg Take 1 Univers e 25 mg 4-19 tablet by ity of tablet 00:00: mouth [place] 00 every 6 Medical (six) Branch hours as needed for Nausea and Vomiting (N/V). proMETHazin 2023-0 Yes [id number] 25mg Take 1 Univers e 25 mg 4-19 tablet by ity of tablet 00:00: mouth [place] 00 every 6 Medical (six) Branch hours as needed for Nausea and Vomiting (N/V). proMETHazin 2023-0 Yes [id number] 25mg Take 1 Univers e 25 mg 4-19 tablet by ity of tablet 00:00: mouth [place] 00 every 6 Medical (six) Branch hours as needed for Nausea and Vomiting (N/V). proMETHazin 2023-0 Yes [id number] 25mg Take 1 Univers e 25 mg 4-19 tablet by ity of tablet 00:00: mouth [place] 00 every 6 Medical (six) Branch hours as needed for Nausea and Vomiting (N/V). proMETHazin 2023-0 Yes [id number] 25mg Take 1 Univers e 25 mg 4-19 tablet by ity of tablet 00:00: mouth [place] 00 every 6 Medical (six) Branch hours as needed for Nausea and Vomiting (N/V). proMETHazin 2023-0 Yes [id number] 25mg Take 1 Univers e 25 mg 4-19 tablet by ity of tablet 00:00: mouth [place] 00 every 6 Medical (six) Branch hours as needed for Nausea and Vomiting (N/V). proMETHazin 2023-0 Yes [id number] 25mg Take 1 Univers e 25 mg 4-19 tablet by ity of tablet 00:00: mouth [place] 00 every 6 Medical (six) Branch hours as needed for Nausea and Vomiting (N/V). proMETHazin 2023-0 Yes [id number] 25mg Take 1 Univers e 25 mg 4-19 tablet by ity of tablet 00:00: mouth [place] 00 every 6 Medical (six) Branch hours as needed for Nausea and Vomiting (N/V). proMETHazin 2023-0 Yes [id number] 25mg Take 1 Univers e 25 mg 4-19 tablet by ity of tablet 00:00: mouth [place] 00 every 6 Medical (six) Branch hours as needed for Nausea and Vomiting (N/V). proMETHazin 2023-0 Yes [id number] 25mg Take 1 Univers e 25 mg 4-19 tablet by ity of tablet 00:00: mouth [place] 00 every 6 Medical (six) Branch hours as needed for Nausea and Vomiting (N/V). proMETHazin 2023-0 Yes [id number] 25mg Take 1 Univers e 25 mg 4-19 tablet by ity of tablet 00:00: mouth [place] 00 every 6 Medical (six) Branch hours as needed for Nausea and Vomiting (N/V). proMETHazin 2022-0 Yes [id number] 25mg Take 1 Univers e 25 mg 4-19 tablet by ity of tablet 00:00: mouth [place] 00 every 6 Medical (six) Branch hours as needed for Nausea and Vomiting (N/V). proMETHazin 2022-0 Yes [id number] 25mg Take 1 Univers e 25 mg 4-19 tablet by ity of tablet 00:00: mouth [place] 00 every 6 Medical (six) Branch hours as needed for Nausea and Vomiting (N/V). proMETHazin 2022-0 Yes [id number] 25mg Take 1 Univers e 25 mg 4-19 tablet by ity of tablet 00:00: mouth [place] 00 every 6 Medical (six) Branch hours as needed for Nausea and Vomiting (N/V). foLIC acid 2022- Yes [id number] 4mg Take 4 Univers 1 mg tablet 4-17 10-15 tablets by i ty of 00:00: 04:59 mouth in [place] 00 :00 the Medical morning Branch for 180 days. foLIC acid 2022- Yes [id number] 4mg Take 4 Univers 1 mg tablet 4-17 10-15 tablets by i ty of 00:00: 04:59 mouth in [place] 00 :00 the Medical morning Branch for 180 days. foLIC acid 2022- Yes [id number] 4mg Take 4 Univers 1 mg tablet 4-17 10-15 tablets by i ty of 00:00: 04:59 mouth in [place] 00 :00 the Medical morning Branch for 180 days. foLIC acid 2022- Yes [id number] 4mg Take 4 Univers 1 mg tablet 4-17 10-15 tablets by i ty of 00:00: 04:59 mouth in [place] 00 :00 the Medical morning Branch for 180 days. foLIC acid 2022- Yes [id number] 4mg Take 4 Univers 1 mg tablet 4-17 10-15 tablets by i ty of 00:00: 04:59 mouth in [place] 00 :00 the Medical morning Branch for 180 days. foLIC acid 2022- Yes [id number] 4mg Take 4 Univers 1 mg tablet 4-17 10-15 tablets by i ty of 00:00: 04:59 mouth in [place] 00 :00 the Medical morning Branch for 180 days. foLIC acid 2022- Yes [id number] 4mg Take 4 Univers 1 mg tablet 4-17 10-15 tablets by i ty of 00:00: 04:59 mouth in [place] 00 :00 the Medical morning Branch for 180 days. foLIC acid 2022- Yes [id number] 4mg Take 4 Univers 1 mg tablet 4-17 10-15 tablets by i ty of 00:00: 04:59 mouth in [place] 00 :00 the Medical morning Branch for 180 days. foLIC acid 2022- Yes [id number] 4mg Take 4 Univers 1 mg tablet 4-17 10-15 tablets by i ty of 00:00: 04:59 mouth in [place] 00 :00 the Medical morning Branch for 180 days. foLIC acid 2022- Yes [id number] 4mg Take 4 Univers 1 mg tablet 4-17 10-15 tablets by i ty of 00:00: 04:59 mouth in [place] 00 :00 the [facility] morning Branch for 180 days. foLIC acid 2022- Yes [id number] 4mg Take 4 Univers 1 mg tablet 4-17 10-15 tablets by i ty of 00:00: 04:59 mouth in [place] 00 :00 the [facility] morning Branch for 180 days. foLIC acid 2022- Yes [id number] 4mg Take 4 Univers 1 mg tablet 4-17 10-15 tablets by i ty of 00:00: 04:59 mouth in [place] 00 :00 the [facility] morning Branch for 180 days. foLIC acid 2022- Yes [id number] 4mg Take 4 Univers 1 mg tablet 4-17 10-15 tablets by i ty of 00:00: 04:59 mouth in [place] 00 :00 the Medical morning Branch for 180 days. foLIC acid 0 2022- Yes [id number] 4mg Take 4 Univers 1 mg tablet 4-17 10-15 tablets by i ty of 00:00: 04:59 mouth in [place] 00 :00 the Medical morning Branch for 180 days. foLIC acid 2022- Yes [id number] 4mg Take 4 Univers 1 mg tablet 4-17 10-15 tablets by i ty of 00:00: 04:59 mouth in [place] 00 :00 the Medical morning Branch for 180 days. foLIC acid 2022- Yes [id number] 4mg Take 4 Univers 1 mg tablet 4-17 10-15 tablets by i ty of 00:00: 04:59 mouth in [place] 00 :00 the Medical morning Branch for 180 days. foLIC acid 2022- Yes [id number] 4mg Take 4 Univers 1 mg tablet 4-17 10-15 tablets by i ty of 00:00: 04:59 mouth in [place] 00 :00 the Medical morning Branch for 180 days. foLIC acid 2022- Yes [id number] 4mg Take 4 Univers 1 mg tablet 4-17 10-15 tablets by i ty of 00:00: 04:59 mouth in [place] 00 :00 the Medical morning Branch for 180 days. foLIC acid 2022- Yes [id number] 4mg Take 4 Univers 1 mg tablet 4-17 10-15 tablets by i ty of 00:00: 04:59 mouth in [place] 00 :00 the Medical morning Branch for 180 days. foLIC acid 2022- Yes [id number] 4mg Take 4 Univers 1 mg tablet 4-17 10-15 tablets by i ty of 00:00: 04:59 mouth in [place] 00 :00 the Medical morning Branch for 180 days. Yes [id number] 1{tbl} Take 1 U nivers multivitami 4-11 tablet by ity of n ( 00:00: [place] VITAM[place] 00 the Medical tablet morning. Branch Yes [id number] 1{tbl} Take 1 U nivers multivitami 4-11 tablet by ity of n ( 00:00: [place] VIT[place] 00 the Medical tablet morning. Branch Yes [id number] 1{tbl} Take 1 U nivers multivitami 4-11 tablet by ity of n ( 00:00: mouth [place] VIT[place] 00 the Medical tablet morning. Branch Yes [id number] 1{tbl} Take 1 U nivers multivitami 4-11 tablet by ity of n ( 00:00: mouth [place] VIT[place] 00 the Medical tablet morning. Branch Yes [id number] 1{tbl} Take 1 U nivers multivitami 4-11 tablet by ity of n ( 00:00: mouth in [place] VIT[place] 00 the Medical tablet morning. [place] Yes [id number] 1{tbl} Take 1 U nivers multivitami 4-11 tablet by ity of n ( 00:00: mouth in [place] VIT[place] 00 the Medical tablet morning. [place] Yes [id number] 1{tbl} Take 1 U nivers multivitami 4-11 tablet by ity of n ( 00:00: mouth in [place] VIT[place] 00 the Medical tablet morning. [place] Yes [id number] 1{tbl} Take 1 U nivers multivitami 4-11 tablet by ity of n ( 00:00: mouth in [place] VIT[place] 00 the Medical tablet morning. [place] Yes [id number] 1{tbl} Take 1 U nivers multivitami 4-11 tablet by ity of n ( 00:00: mouth [place] V[place] 00 the Medical tablet morning. [place] Yes [id number] 1{tbl} Take 1 U nivers multivitami 4-11 tablet by ity of n ( 00:00: mouth [place] V[place] 00 the Medical tablet morning. [place] Yes [id number] 1{tbl} Take 1 U nivers multivitami 4-11 tablet by ity of n ( 00:00: mouth in [place] VIT[place] 00 the Medical tablet morning. [place] Yes [id number] 1{tbl} Take 1 U nivers multivitami 4-11 tablet by ity of n ( 00:00: mouth in [place] VIT[place] 00 the Medical tablet morning. [place] Yes [id number] 1{tbl} Take 1 U nivers multivitami 4-11 tablet by ity of n ( 00:00: [place] 00 the Medical tablet morning. [place] Yes [id number] 1{tbl} Take 1 U nivers multivitami 4-11 tablet by ity of n ( 00:00: [place] 00 the Medical tablet morning. Branch Yes [id number] 1{tbl} Take 1 [facility] multivitami 4-11 tablet by [facility] of n ( 00:00: mouth in [place] VITAMIN) 00 the Medical tablet morning. Branch Yes [id number] 1{tbl} Take 1 [facility] multivitami 4-11 tablet by [facility] of n ( 00:00: mouth in [place] VITAMIN) 00 the Medical tablet morning. Branch Yes [id number] 1{tbl} Take 1 [facility] multivitami 4-11 tablet by [facility] of n ( 00:00: mouth in [place] VITAMIN) 00 the Medical tablet morning. [place] Yes [id number] 1{tbl} Take 1 [facility] multivitami 4-11 tablet by [facility]y of n ( 00:00: mouth in [place] VITAMIN) 00 the Medical tablet morning. [place] Yes [id number] 1{tbl} Take 1 [facility] multivitami 4-11 tablet by [facility] of n ( 00:00: mouth in [place] VITAMIN) 00 the Medical tablet morning. [place] Yes [id number] 1{tbl} Take 1 [facility] multivitami 4-11 tablet by [facility] of n ( 00:00: mouth in [place] VITAMIN) 00 the Medical tablet morning. [place] Yes [id number] 1{tbl} Take 1 [facility] multivitami 4-11 tablet by [facility] of n ( 00:00: mouth in [place] VITAMIN) 00 the Medical tablet morning. [place] Yes [id number] 1{tbl} Take 1 [facility] multivitami 4-11 tablet by [facility] of n ( 00:00: mouth in [place] VITAMIN) 00 the Medical tablet morning. [place] Yes [id number] 1{tbl} Take 1 [facility] multivitami 4-11 tablet by [facility] of n ( 00:00: mouth in [place] VITAMIN) 00 the Medical tablet morning. [place] Yes [id number] 1{tbl} Take 1 [facility] multivitami 4-11 tablet by [facility] of n ( 00:00: mouth in [place] VITAMIN) 00 the Medical tablet morning. Branch 2023-0 Yes [id number] 1{tbl} Take 1 [facility] multivitami 4-11 tablet by [facility] of n ( 00:00: mouth in [place] VITAMIN) 00 the Medical tablet morning. Branch 2023-0 Yes [id number] 1{tbl} Take 1 [facility] multivitami 4-11 [...] by ity of capsule 00:00: mouth in [place] the Medical morning. Branch gabapentin 2023-0 Yes TAKE 1 [facility] 300 mg 3-15 CAPSULE BY ity of capsule 00:00: MOUTH ONCE [place] 00 DAILY Medical NEEDED FOR Branch PANIC ATTACKS DULoxetine 2023-0 Yes 60mg Take 1 [facility] 60 mg 3-15 capsule by ity of capsule 00:00: mouth in [place] the Medical morning. Branch gabapentin 2023-0 Yes TAKE 1 [facility] 300 mg 3-15 CAPSULE BY ity of capsule 00:00: MOUTH ONCE [place] 00 DAILY Medical NEEDED FOR Branch PANIC ATTACKS DULoxetine 2023-0 Yes 60mg Take 1 [facility] 60 mg 3-15 capsule by ity of capsule 00:00: mouth in [place] 00 the Medical morning. Branch gabapentin 2023-0 Yes TAKE 1 [facility] 300 mg 3-15 CAPSULE BY ity of capsule 00:00: MOUTH ONCE [place] 00 DAILY Medical NEEDED FOR Branch PANIC ATTACKS DULoxetine 2023-0 Yes 60mg Take 1 [facility] 60 mg 3-15 capsule by ity of capsule 00:00: mouth in [place] 00 the Medical morning. Branch gabapentin 2023-0 Yes TAKE 1 [facility] 300 mg 3-15 CAPSULE BY ity of capsule 00:00: MOUTH ONCE [place] 00 DAILY Medical NEEDED FOR Branch PANIC ATTACKS DULoxetine 2023-0 Yes 60mg Take 1 [facility] 60 mg 3-15 capsule by ity of capsule 00:00: mouth in [place] 00 the Medical morning. Branch gabapentin 2023-0 Yes TAKE 1 [facility] 300 mg 3-15 CAPSULE BY ity of capsule 00:00: MOUTH ONCE [place] 00 DAILY Medical NEEDED FOR Branch PANIC ATTACKS DULoxetine 2023-0 Yes 60mg Take 1 [facility] 60 mg 3-15 capsule by ity of capsule 00:00: mouth in [place] the Medical morning. Branch gabapentin 2023-0 Yes TAKE 1 [facility] 300 mg 3-15 CAPSULE BY ity of capsule 00:00: MOUTH ONCE [place] 00 DAILY Medical NEEDED FOR Branch PANIC ATTACKS DULoxetine 3-0 Yes 60mg Take 1 [facility] 60 mg 3-15 capsule by ity of capsule 00:00: mouth in [place] the Medical morning. Branch gabapentin 3-0 Yes TAKE 1 [facility] 300 mg 3-15 CAPSULE BY ity of capsule 00:00: MOUTH ONCE [place] 00 DAILY Medical NEEDED FOR Branch PANIC ATTACKS DULoxetine 3-0 Yes 60mg Take 1 [facility] 60 mg 3-15 capsule by ity of capsule 00:00: mouth in [place] the Medical morning. Branch gabapentin 3-0 Yes TAKE 1 [facility] 300 mg 3-15 CAPSULE BY ity of capsule 00:00: MOUTH ONCE [place] 00 DAILY Medical NEEDED FOR Branch PANIC ATTACKS DULoxetine 3-0 Yes 60mg Take 1 [facility] 60 mg 3-15 capsule by ity of capsule 00:00: mouth in [place] the Medical morning. Branch gabapentin 3-0 Yes TAKE 1 [facility] 300 mg 3-15 CAPSULE BY ity of capsule 00:00: MOUTH ONCE [place] 00 DAILY Medical NEEDED FOR Branch PANIC ATTACKS DULoxetine 3-0 Yes 60mg Take 1 [facility] 60 mg 3-15 capsule by ity of capsule 00:00: mouth in [place] the Medical morning. Branch gabapentin 2023-0 Yes TAKE 1 [facility] 300 mg 3-15 CAPSULE BY ity of capsule 00:00: MOUTH ONCE [place] 00 DAILY Medical NEEDED FOR Branch PANIC ATTACKS DULoxetine 2023-0 Yes 60mg Take 1 [facility] 60 mg 3-15 capsule by ity of capsule 00:00: mouth in [place] 00 the Medical morning. Branch gabapentin 2023-0 Yes TAKE 1 [facility] 300 mg 3-15 CAPSULE BY ity of capsule 00:00: MOUTH ONCE [place] 00 DAILY Medical NEEDED FOR Branch PANIC ATTACKS DULoxetine 2023-0 Yes 60mg Take 1 [facility] 60 mg 3-15 capsule by ity of capsule 00:00: mouth in [place] 00 the Medical morning. Branch gabapentin 2023-0 Yes TAKE 1 [facility] 300 mg 3-15 CAPSULE BY ity of capsule 00:00: MOUTH ONCE [place] 00 DAILY Medical NEEDED FOR Branch PANIC ATTACKS DULoxetine 2023-0 Yes 60mg Take 1 [facility] 60 mg 3-15 capsule by ity of capsule 00:00: mouth in [place] the Medical morning. Branch gabapentin 2023-0 Yes TAKE 1 [facility] 300 mg 3-15 CAPSULE BY ity of capsule 00:00: MOUTH ONCE [place] 00 DAILY Medical NEEDED FOR Branch PANIC ATTACKS DULoxetine 2023-0 Yes 60mg Take 1 [facility] 60 mg 3-15 capsule by ity of capsule 00:00: mouth in [place] the Medical morning. Branch gabapentin 2023-0 Yes TAKE 1 [facility] 300 mg 3-15 CAPSULE BY ity of capsule 00:00: MOUTH ONCE [place] 00 DAILY Medical NEEDED FOR Branch PANIC ATTACKS DULoxetine 3-0 Yes 60mg Take 1 [facility] 60 mg 3-15 capsule by ity of capsule 00:00: mouth in [place] the Medical morning. Branch gabapentin 3-0 Yes TAKE 1 [facility] 300 mg 3-15 CAPSULE BY ity of capsule 00:00: MOUTH ONCE [place] 00 DAILY Medical NEEDED FOR Branch PANIC ATTACKS DULoxetine 2023-0 Yes 60mg Take 1 [facility] 60 mg 3-15 capsule by ity of capsule 00:00: mouth in [place] the Medical morning. Branch gabapentin 2023-0 Yes TAKE 1 [facility] 300 mg 3-15 CAPSULE BY ity of capsule 00:00: MOUTH ONCE [place] 00 DAILY Medical NEEDED FOR Branch PANIC ATTACKS DULoxetine 2023-0 Yes 60mg Take 1 [facility] 60 mg 3-15 capsule by ity of capsule 00:00: mouth in [place] the Medical morning. Branch gabapentin 2023-0 Yes TAKE 1 [facility] 300 mg 3-15 CAPSULE BY ity of capsule 00:00: MOUTH ONCE [place] 00 DAILY Medical NEEDED FOR Branch PANIC ATTACKS DULoxetine 2023-0 Yes 60mg Take 1 [facility] 60 mg 3-15 capsule by ity of capsule 00:00: mouth in [place] the Medical morning. Branch gabapentin 2023-0 Yes TAKE 1 [facility] 300 mg 3-15 CAPSULE BY ity of capsule 00:00: MOUTH ONCE [place] 00 DAILY Medical NEEDED FOR Branch PANIC ATTACKS DULoxetine 2023-0 Yes 60mg Take 1 [facility] 60 mg 3-15 capsule by ity of capsule 00:00: mouth in [place] the Medical morning. Branch gabapentin 2023-0 Yes TAKE 1 [facility] 300 mg 3-15 CAPSULE BY ity of capsule 00:00: MOUTH ONCE [place] 00 DAILY Medical NEEDED FOR Branch PANIC ATTACKS DULoxetine 2023-0 Yes 60mg Take 1 [facility] 60 mg 3-15 capsule by ity of capsule 00:00: mouth in [place] the Medical morning. Branch gabapentin 2023-0 Yes TAKE 1 [facility] 300 mg 3-15 CAPSULE BY ity of capsule 00:00: MOUTH ONCE [place] 00 DAILY Medical NEEDED FOR Branch PANIC ATTACKS DULoxetine 2023-0 Yes 60mg Take 1 [facility] 60 mg 3-15 capsule by ity of capsule 00:00: mouth in [place] the Medical morning. Branch gabapentin 2023-0 Yes TAKE 1 [facility] 300 mg 3-15 CAPSULE BY ity of capsule 00:00: MOUTH ONCE [place] 00 DAILY Medical NEEDED FOR Branch PANIC ATTACKS DULoxetine 2023-0 Yes 60mg Take 1 [facility] 60 mg 3-15 capsule by ity of capsule 00:00: mouth in [place] the Medical morning. Branch gabapentin 2023-0 Yes TAKE 1 [facility] 300 mg 3-15 CAPSULE BY ity of capsule 00:00: MOUTH ONCE [place] 00 DAILY Medical NEEDED FOR Branch PANIC ATTACKS DULoxetine 2023-0 Yes 60mg Take 1 [facility] 60 mg 3-15 capsule by ity of capsule 00:00: mouth in [place] the Medical morning. Branch gabapentin 2023-0 Yes TAKE 1 [facility] 300 mg 3-15 CAPSULE BY ity of capsule 00:00: MOUTH ONCE [place] 00 DAILY Medical NEEDED FOR Branch PANIC ATTACKS DULoxetine 2023-0 Yes 60mg Take 1 [facility] 60 mg 3-15 capsule by ity of capsule 00:00: mouth in [place] 00 the Medical morning. Branch gabapentin 2023-0 Yes TAKE 1 [facility] 300 mg 3-15 CAPSULE BY ity of capsule 00:00: MOUTH ONCE [place] 00 DAILY Medical NEEDED FOR Branch PANIC ATTACKS DULoxetine 2022-0 Yes 60mg Take 1 [facility] 60 mg 3-15 capsule by ity of capsule 00:00: mouth in [place] 00 the Medical morning. Branch gabapentin 2022-0 Yes TAKE 1 [facility] 300 mg 3-15 CAPSULE BY ity of capsule 00:00: MOUTH ONCE [place] 00 DAILY Medical NEEDED FOR Branch PANIC ATTACKS DULoxetine 2022-0 Yes 60mg Take 1 [facility] 60 mg 3-15 capsule by ity of capsule 00:00: mouth in [place] 00 the Medical morning. Branch dexmethylph 2022-0 Yes TAKE 1 [facility] ers enidate 20 3-14 CAPSULE BY ity of mg 24 hr 00:00: MOUTH [place] capsule 00 EVERY DAY Medical IN THE [place] MORNING FOR 30 DAYS dexmethylph 2022-0 Yes TAKE 1 Univ ers enidate 20 3-14 CAPSULE BY ity of mg 24 hr 00:00: MOUTH [place] capsule 00 EVERY DAY Medical IN THE [place] MORNING FOR 30 DAYS dexmethylph 2022-0 Yes TAKE 1 Univ ers enidate 20 3-14 CAPSULE BY ity of mg 24 hr 00:00: MOUTH [place] capsule 00 EVERY DAY Medical IN THE [place] MORNING FOR 30 DAYS dexmethylph 2022-0 Yes TAKE 1 Univ ers enidate 20 3-14 CAPSULE BY ity of mg 24 hr 00:00: MOUTH [place] capsule 00 EVERY DAY Medical IN THE [place] MORNING FOR 30 DAYS dexmethylph 2022-0 Yes TAKE 1 Univ ers enidate 20 3-14 CAPSULE BY ity of mg 24 hr 00:00: MOUTH [place] capsule 00 EVERY DAY Medical IN THE [place] MORNING FOR 30 DAYS dexmethylph 3-0 Yes TAKE 1 Univ ers enidate 20 3-14 CAPSULE BY ity of mg 24 hr 00:00: MOUTH [place] capsule 00 EVERY DAY Medical IN THE [place] MORNING FOR 30 DAYS dexmethylph 3-0 Yes TAKE 1 Univ ers enidate 20 3-14 CAPSULE BY ity of mg 24 hr 00:00: MOUTH [place] capsule 00 EVERY DAY Medical IN THE [place] MORNING FOR 30 DAYS dexmethylph 3-0 Yes TAKE 1 Univ ers enidate 20 3-14 CAPSULE BY ity of mg 24 hr 00:00: MOUTH [place] capsule 00 EVERY DAY Medical IN THE [place] MORNING FOR 30 DAYS dexmethylph 3-0 Yes TAKE 1 Univ ers enidate 20 3-14 CAPSULE BY ity of mg 24 hr 00:00: MOUTH [place] capsule 00 EVERY DAY Medical IN THE [place] MORNING FOR 30 DAYS dexmethylph 3-0 Yes TAKE 1 Univ ers enidate 20 3-14 CAPSULE BY ity of mg 24 hr 00:00: MOUTH [place] capsule 00 EVERY DAY Medical IN THE [place] MORNING FOR 30 DAYS dexmethylph 3-0 Yes TAKE 1 Univ ers enidate 20 3-14 CAPSULE BY ity of mg 24 hr 00:00: MOUTH [place] capsule 00 EVERY DAY Medical IN THE [place] MORNING FOR 30 DAYS dexmethylph 3-0 Yes TAKE 1 Univ ers enidate 20 3-14 CAPSULE BY ity of mg 24 hr 00:00: MOUTH [place] capsule 00 EVERY DAY Medical IN THE [place] MORNING FOR 30 DAYS dexmethylph 2022-0 Yes TAKE 1 Univ ers enidate 20 3-14 CAPSULE BY ity of mg 24 hr 00:00: MOUTH [place] capsule 00 EVERY DAY Medical IN THE [facility] FOR 30 DAYS dexmethylph 2022-0 Yes TAKE 1 Univ ers enidate 20 3-14 CAPSULE BY ity of mg 24 hr 00:00: MOUTH [place] capsule 00 EVERY DAY Medical IN THE [facility] FOR 30 DAYS dexmethylph 3-0 Yes TAKE 1 Univ ers enidate 20 3-14 CAPSULE BY ity of mg 24 hr 00:00: MOUTH [place] capsule 00 EVERY DAY Medical IN THE [facility] FOR 30 DAYS dexmethylph 3-0 Yes TAKE 1 Univ ers enidate 20 3-14 CAPSULE BY ity of mg 24 hr 00:00: MOUTH [place] capsule 00 EVERY DAY Medical IN THE [facility] FOR 30 DAYS dexmethylph 3-0 Yes TAKE 1 Univ ers enidate 20 3-14 CAPSULE BY ity of mg 24 hr 00:00: MOUTH [place] capsule 00 EVERY DAY Medical IN THE [facility] FOR 30 DAYS dexmethylph 3-0 Yes TAKE 1 Univ ers enidate 20 3-14 CAPSULE BY ity of mg 24 hr 00:00: MOUTH [place] capsule 00 EVERY DAY Medical IN THE [place] MORNING FOR 30 DAYS dexmethylph 3-0 Yes TAKE 1 Univ ers enidate 20 3-14 CAPSULE BY ity of mg 24 hr 00:00: MOUTH [place] capsule 00 EVERY DAY Medical IN THE [facility] FOR 30 DAYS dexmethylph 3-0 Yes TAKE 1 Univ ers enidate 20 3-14 CAPSULE BY ity of mg 24 hr 00:00: MOUTH [place] capsule 00 EVERY DAY Medical IN THE [place] MORNING FOR 30 DAYS dexmethylph 2022-0 Yes TAKE 1 Univ ers enidate 20 3-14 CAPSULE BY ity of mg 24 hr 00:00: MOUTH [place] capsule 00 EVERY DAY Medical IN THE [place] MORNING FOR 30 DAYS dexmethylph 2022-0 Yes TAKE 1 Univ ers enidate 20 3-14 CAPSULE BY ity of mg 24 hr 00:00: MOUTH [place] capsule 00 EVERY DAY Medical IN THE [place] MORNING FOR 30 DAYS dexmethylph 2022-0 Yes TAKE 1 Univ ers enidate 20 3-14 CAPSULE BY ity of mg 24 hr 00:00: MOUTH [place] capsule 00 EVERY DAY Medical IN THE [place] MORNING FOR 30 DAYS dexmethylph 2022-0 Yes TAKE 1 Univ ers enidate 20 3-14 CAPSULE BY ity of mg 24 hr 00:00: MOUTH [place] capsule 00 EVERY DAY Medical IN THE [place] MORNING FOR 30 DAYS dexmethylph 2022-0 Yes TAKE 1 Univ ers enidate 20 3-14 CAPSULE BY ity of mg 24 hr 00:00: MOUTH [place] capsule 00 EVERY DAY Medical IN THE [facility] FOR 30 DAYS dexmethylph 2022-0 Yes TAKE 1 Univ ers enidate 20 3-14 CAPSULE BY ity of mg 24 hr 00:00: MOUTH [place] capsule 00 EVERY DAY Medical IN THE [facility] FOR 30 DAYS ketorolac 2021-03- No 30mg 30 mg, Unive rs (TORADOL) 04-20 Slow IV ity of injection 00:15: 23:30 Push, [place] 30 mg 00 :00 ONCE, 1 Medical dose, On [facility] 02/16/22 at 1815, SHAYNA FENTanyl PF 2021-03- No 75ug 75 mcg, [facility] (SUBLIMAZE 04-19 Slow IV ity o f (PF)) 23:15: 22:46 Push, [place] injection 00 :00 ONCE, 1 Medical 75 mcg dose, On [facility] 02/16/22 at 1715, STAT iopamidol 2021-03- No [id number] 74mL 74 mL, U nivers (ISOVUE 04-19 Intravenou ity o f 370-500 mL) 21:00: 21:15 s, ONCE, 1 [place] injection 00 :00 dose, On Medica l 74 mL [facility] 02/16/22 at 1515, Routine metoclopram 2021- Yes [id number] 10mg Take 1 [facility] [place] HCl 10 2-11 tablet by ity of mg tablet 00:00: mouth [place] 00 every 6 Medical (six) Branch hours. metoclopram 2021- Yes [id number] 10mg Take 1 [facility] [place] HCl 10 2-11 tablet by ity of mg tablet 00:00: mouth [place] 00 every 6 Medical (six) Branch hours. metoclopram 2021- Yes [id number] 10mg Take 1 [facility] [place] HCl 10 2-11 tablet by ity of mg tablet 00:00: mouth [place] 00 every 6 Medical (six) Branch hours. metoclopram 2021- Yes [id number] 10mg Take 1 [facility] [place] HCl 10 2-11 tablet by ity of mg tablet 00:00: mouth [place] 00 every 6 Medical (six) Branch hours. metoclopram 2021-03 Yes [id number] 10mg Take 1 [facility] [place] HCl 10 2-11 tablet by ity of mg tablet 00:00: mouth [place] 00 every 6 Medical (six) Branch hours. metoclopram 2021-03 Yes [id number] 10mg Take 1 [facility] [place] HCl 10 2-11 tablet by ity of mg tablet 00:00: mouth [place] 00 every 6 Medical (six) Branch hours. metoclopram 2021- Yes [id number] 10mg Take 1 [facility] [place] HCl 10 2-11 tablet by ity of mg tablet 00:00: mouth [place] 00 every 6 Medical (six) Branch hours. metoclopram 2021-03 Yes [id number] 10mg Take 1 [facility] [place] HCl 10 2-11 tablet by ity of mg tablet 00:00: mouth [place] 00 every 6 Medical (six) Branch hours. metoclopram 2021-033- No [id number] 10mg Take 1 [facility] [place] HCl 10 2-11 04-11 tablet by ity of mg tablet 00:00: 00:00 mouth [place] 00 :00 every 6 Medical (six) Branch hours. foLIC acid 2021-03 Yes 1mg 1 mg, Univer s (FOLATE) 2-07 Oral, ity of tablet 1 mg 15:00: DAILY, [place] 00 First dose Medical on Thu02/12/22 at 0900, Until Discontinu ed, Routine ferrous 2021- Yes 325mg 325 mg, Univer s sulfate 2-07 Oral, Q ity of tablet 325 15:00: OTHERDAY, [place] mg 00 First dose Medical on Thu Branch 02/12/22 at 0900, Until Discontinu ed, Routine docusate 2021-03 Yes [id number] 200mg Take 2 U nivers 100 mg 2-07 capsules ity of capsule 00:00: by mouth [place] 00 once daily Medical as needed Branch for Constipati on. ferrous 2021-03 Yes [id number] 325mg Take 1 [facility] [place] sulfate 325 2-07 tablet by ity of mg (65 mg 00:00: mouth [place] iron) 00 every Medical tablet other day. Branch ibuprofen 2021-03 Yes [id number] 600mg Take 1 [facility] 600 mg 2-07 [...] Until Discontinu ed, Routine docusate 2021-03 Yes [id number] 200mg Take 2 U nivers 100 mg 2-07 capsules ity of capsule 00:00: by mouth [place] 00 once daily Medical as needed Branch for Constipati on. ferrous 2021-03 Yes [id number] 325mg Take 1 [facility] [place] sulfate 325 2-07 tablet by ity of mg (65 mg 00:00: mouth [place] iron) 00 every Medical tablet other day. Branch ibuprofen 2021-03 Yes [id number] 600mg Take 1 [facility] 600 mg 2-07 tablet by ity of tablet 00:00: mouth [place] 00 every 6 Medical (six) Branch hours as needed (Pain). Take with food or milk. docusate 2021-03 Yes [id number] 200mg Take 2 U nivers 100 mg 2-07 capsules ity of capsule 00:00: by mouth [place] 00 once daily Medical as needed Branch for Constipati on. ferrous 2021-03 Yes [id number] 325mg Take 1 [facility] [place] sulfate 325 2-07 tablet by ity of mg (65 mg 00:00: mouth [place] iron) 00 every Medical tablet other day. Branch ibuprofen 2021-03 Yes [id number] 600mg Take 1 [facility] 600 mg 2-07 tablet by ity of tablet 00:00: mouth [place] 00 every 6 Medical (six) Branch hours as needed (Pain). Take with food or milk. docusate 2021-03 Yes [id number] 200mg Take 2 U nivers 100 mg 2-07 capsules ity of capsule 00:00: by mouth [place] 00 once daily Medical as needed Branch for Constipati on. ferrous 2021-03 Yes [id number] 325mg Take 1 [facility] [place] sulfate 325 2-07 tablet by ity of mg (65 mg 00:00: mouth [place] iron) 00 every Medical tablet other day. Branch ibuprofen 2021-03 Yes [id number] 600mg Take 1 [facility] 600 mg 2-07 tablet by ity of tablet 00:00: mouth [place] 00 every 6 Medical (six) Branch hours as needed (Pain). Take with food or milk. docusate 2021-03 Yes [id number] 200mg Take 2 U nivers 100 mg 2-07 capsules ity of capsule 00:00: by mouth [place] 00 once daily Medical as needed Branch for Constipati on. ferrous 2021-03 Yes [id number] 325mg Take 1 [facility] [place] sulfate 325 2-07 tablet by ity of mg (65 mg 00:00: mouth [place] iron) 00 every Medical tablet other day. Branch ibuprofen 2021-03 Yes [id number] 600mg Take 1 [facility] 600 mg 2-07 tablet by ity of tablet 00:00: mouth [place] 00 every 6 Medical (six) Branch hours as needed (Pain). Take with food or milk. docusate 2021-03 Yes [id number] 200mg Take 2 U nivers 100 mg 2-07 capsules ity of capsule 00:00: by mouth [place] 00 once daily Medical as needed Branch for Constipati on. ferrous 2021-03 Yes [id number] 325mg Take 1 [facility] [place] sulfate 325 2-07 tablet by ity of mg (65 mg 00:00: mouth [place] iron) 00 every Medical tablet other day. Branch ibuprofen 2021-03 Yes [id number] 600mg Take 1 [facility] 600 mg 2-07 tablet by ity of tablet 00:00: mouth [place] 00 every 6 Medical (six) Branch hours as needed (Pain). Take with food or milk. docusate 2021-03 Yes [id number] 200mg Take 2 U nivers 100 mg 2-07 capsules ity of capsule 00:00: by mouth [place] 00 once daily Medical as needed Branch for Constipati on. ferrous 2021-03 Yes [id number] 325mg Take 1 [facility] [place] sulfate 325 2-07 tablet by ity of mg (65 mg 00:00: mouth [place] iron) 00 every Medical tablet other day. Branch ibuprofen 2021-03 Yes [id number] 600mg Take 1 [facility] 600 mg 2-07 tablet by ity of tablet 00:00: mouth [place] 00 every 6 Medical (six) Branch hours as needed (Pain). Take with food or milk. docusate 2021-03 Yes [id number] 200mg Take 2 U nivers 100 mg 2-07 capsules ity of capsule 00:00: by mouth [place] 00 once daily Medical as needed Branch for Constipati on. ferrous 2021-03 Yes [id number] 325mg Take 1 [facility] [place] sulfate 325 2-07 tablet by ity of mg (65 mg 00:00: mouth [place] iron) 00 every Medical tablet other day. Branch ibuprofen 2021-03 Yes [id number] 600mg Take 1 [facility] 600 mg 2-07 tablet by ity of tablet 00:00: mouth [place] 00 every 6 Medical (six) Branch hours as needed (Pain). Take with food or milk. docusate 2021-03 Yes [id number] 200mg Take 2 U nivers 100 mg 2-07 capsules ity of capsule 00:00: by mouth [place] 00 once daily Medical as needed Branch for Constipati on. ferrous 2021-03 Yes [id number] 325mg Take 1 [facility] [place] sulfate 325 2-07 tablet by ity of mg (65 mg 00:00: mouth [place] iron) 00 every Medical tablet other day. Branch ibuprofen 2021-03 Yes [id number] 600mg Take 1 [facility] 600 mg 2-07 tablet by ity of tablet 00:00: mouth [place] 00 every 6 Medical (six) Branch hours as needed (Pain). Take with food or milk. docusate 2021-03 Yes [id number] 200mg Take 2 U nivers 100 mg 2-07 capsules ity of capsule 00:00: by mouth [place] 00 once daily Medical as needed Branch for Constipati on. ferrous 2021-03 Yes [id number] 325mg Take 1 [facility] [place] sulfate 325 2-07 tablet by ity of mg (65 mg 00:00: mouth [place] iron) 00 every Medical tablet other day. Branch ibuprofen 2021-03 Yes [id number] 600mg Take 1 [facility] 600 mg 2-07 tablet by ity of tablet 00:00: mouth [place] 00 every 6 Medical (six) Branch hours as needed (Pain). Take with food or milk. docusate 2021-03- No [id number] 200mg Take 2 [facility] 100 mg 04-15 capsules ity of capsule 00:00: 00:00 by mouth [place] 00 :00 once daily Medical as needed Branch for Constipati on. ferrous 2021-03- No [id number] 325mg Take 1 U nivers sulfate 325 04-15 tablet by it y of mg (65 mg 00:00: 00:00 mouth [place] iron) 00 :00 every Medical tablet other day. Branch ibuprofen 2021-03- No [id number] 600mg Take 1 [facility] 600 mg 04-15 tablet by ity of tablet 00:00: 00:00 mouth [place] 00 :00 every 6 Medical (six) Branch hours as needed (Pain). Take with food or milk. foLIC acid 2021-03- No [id number] 1mg Take 1 Univers 1 mg tablet 04-15- tablet by it y of 00:00: 05:59 mouth in [place] 00 :00 the Medical morning [place] for 90 days. foLIC acid 2021-03- No [id number] 1mg Take 1 Univers 1 mg tablet 04-15- tablet by it y of 00:00: 05:59 mouth in [place] 00 :00 the Medical morning Branch for 90 days. foLIC acid 2021-03- No [id number] 1mg Take 1 Univers 1 mg tablet 04-15- tablet by it y of 00:00: 05:59 mouth in [place] 00 :00 the Medical morning Branch for 90 days. foLIC acid 2021-03- No [id number] 1mg Take 1 Univers 1 mg tablet 04-15-08 tablet by it y of 00:00: 05:59 mouth in [place] 00 :00 the Medical morning Branch for 90 days. foLIC acid 2021-03- No [id number] 1mg Take 1 Univers 1 mg tablet 04-15-08 tablet by it y of 00:00: 05:59 mouth in [place] 00 :00 the Medical morning Branch for 90 days. foLIC acid 2021-03- No [id number] 1mg Take 1 Univers 1 mg tablet 04-15- tablet by it y of 00:00: 05:59 mouth in [place] 00 :00 the Medical morning Branch for 90 days. foLIC acid 2021-03- No [id number] 1mg Take 1 Univers 1 mg tablet 04-15 tablet by it y of 00:00: 05:59 mouth in [place] 00 :00 the Medical morning Branch for 90 days. foLIC acid 2021-03- No [id number] 1mg Take 1 Univers 1 mg tablet 04-15 tablet by it y of 00:00: 05:59 mouth in [place] 00 :00 the [facility] morning Branch for 90 days. foLIC acid 2021-03- No [id number] 1mg Take 1 Univers 1 mg tablet 04-15 tablet by it y of 00:00: 05:59 mouth in [place] 00 :00 the [facility] Branch for 90 days. ibuprofen 2021-03 Yes 600mg 600 mg, Univ ers (IBU) 2-06 Oral, ity of tablet 600 19:22: Q6HPRN, [place] mg 45 Starting Medical on [facility] Branch 02/11/22 at 1322, Until Discontinu ed, Routine, Pain (scale 4-6) acetaminoph 2021-03 Yes 650mg 650 mg, [facility] en 2-06 Oral, ity of (TYLENOL) 19:22: Q6HPRN, [place] tablet 650 45 Starting Medic al mg on [facility] Branch 02/11/22 at 1322, Until Discontinu ed, Routine, Pain (scale 1-3) diphenhydrA 2021-03 Yes 25mg 25 mg, Univ ers MINE 2-06 Oral, ity of (BENADRYL) 19:22: Q6HPRN, [place] tablet 25 45 Starting Medica l mg on [facility] Branch 02/11/22 at 1322, Until Discontinu ed, Routine, Sleep, Itching ondansetron 2021-03 Yes 4mg 4 mg, Slow Univers (ZOFRAN 2-06 IV Push, ity of (PF)) 19:22: Q8HPRN, [place] injection 4 45 Starting Medi tressa mg on [facility] Branch 02/11/22 at 1322, Until Discontinu ed, Routine, Nausea and Vomiting (N/V) simethicone 2021-03 Yes 160mg 160 mg, [facility] (GAS RELIEF 2-06 Oral, ity of (SIMETHICON 19:22: PC+HSPRN, [place] E)) 45 Starting Medical chewable on Thu Branch tablet 160 02/11/22 at mg 1322, Until Discontinu ed, Routine, Gas docusate 2021-03 Yes 200mg 200 mg, Unive rs (COLACE) 2-06 Oral, ity of capsule 200 19:22: QDAILYPRN, [place] mg 45 Starting Medical on Tue Branch [...] [place] 20-0.5 % 44 on [facility] Medical topical 02/11/22 at Branch spray 1322, Until Discontinu ed, Routine, Perineum discomfort oxytocin 2021-03- No 300mL/h 300 mL/hr, Univers (PITOCIN) 04-14-06 IV ity of 30 units in 16:59: 19:22 Infusion, [place] NS 500 mL 29 :49 SEE-INSTRU Medi tressa IV infusion CTIONS, Branc h Starting on Thu02/11/[address] at 300 mL/hr for 1 hr then 150 mL/hr for 1 hr. & nbsp; For post delivery uterotonic
PIB 2021-03- No Epidural, Univers ropivacaine 04-14-06 CONTINUOUS i ty of 0.2 % 16:30: 18:20 PRN, [place] (NAROPIN 00 :56 Starting Medical (PF)) on [facility] epidural 02/11/22 at infusion 1030, Until e 02/11/22 at 1220, Routine, Intra-op bupivacaine 2021-03 Caudal Uni vers (preserv 04-14 Block, ity of free) 15:33: 18:20 ONCE INTRA [place] (SENSORCAIN 00 :56 PROCEDURE, Me dical E MPF) 0.25 Starting Bran ch % (2.5 on Tue mg/mL) 02/11/22 at injection 0933, Until 02/11/22 at 1220, Routine, Intra-op lamoTRIgine 2021-03 Yes 75mg 75 mg, Univ ers (LAMICTAL) 04-14 Oral, ity of tablet 75 13:30: QAM-0730, [place] mg 00 First dose Medical on Tue Branch 02/11/22 at 0730, Until Discontinu ed, [...] CONTINUOUS ity of (NAROPIN 06:45: 18:20 PRN, [place] (PF)) 00 :56 Starting Medical epidural on Tue Branch infusion 02/11/22 at 0045, Until Discontinu [...] 2021-03- No 30mL 30 mL, Univers citrate-cit 04-14 [...] First dose [place] mg 00 on [facility] Medical 02/10/22 at Branch 2100, Until Discontinu ed, Routine proMETHazin 2021-03- No 25mg 25 mg, IV Univers e 04-14 Piggyback, ity of (PHENERGAN) 00:45: 00:59 at 200 [place] 25 mg in [place] 00 :00 mL/hr Medical 50 mL IV Administer Branc h piggyback over 15 (CNR) Minutes, ONCE, 1 dose, On [facility] 02/10/22 at 1845, Routine butorphanol 2021-03- No 1mg 1 mg, Univ ers (STADOL) 04-14 Intravenou ity of injection 1 00:45: 00:09 s, ONCE, 1 [place] mg 00 :00 dose, On [facility] Branch 02/10/22 at 1845, Routine oxytocin 2021-03- No 2mU/min at 2-40 Un aubree (PITOCIN) 04-14- mL/hr, IV ity of 30 units in 00:02: 19:22 Infusion, [place] NS 500 mL 47 :49 TITRATE, Medica l IV infusion Starting Bran ch on Thu02/10/22 at 1802, Until Thu02/11/22 at 1322, SHAYNA [id number] IV 2021-03- No 1000mL at 1-125 U nivers infusion 04-13 12-06 mL/hr, IV ity o f 1,000 mL 22:58: 19:22 Infusion, [place] as 45 :49 TITRATE, Medical Starting Branch on Thu02/10/22 at 1658, Until Thu02/11/22 at 1322, Routine lamoTRIgine 2021-03 No 100mg Take 100 Univers 100 mg 2-05 12-05 mg by ity of tablet 17:04: 00:00 mouth at [place] 29 :[address] lamoTRIgine 2021-03 No 100mg Take 100 Univers 100 mg 2-05 12-05 mg by ity of tablet 17:04: 00:00 mouth at [place] 29 :[address] 2021-03 Yes 1{tbl} 1 tablet, Un [...] infusion 2 ONCE, 1 g dose, On Thu01/30/22 at 1645, Routine NaCl 0.9% 2021-03 No 1000mL at 999 Uni vers (NS) bolus 04-01 mL/hr, ity of infusion 22:45: 22:01 1,000 mL, [place] as 1,000 mL 00 :00 IV Medical Infusion, Branch ONCE, 1 dose, On Thu01/30/22 at 1645, SHAYNA magnesium 2021-03 No 2g [...] ity of 100 mg 18:07: mouth at [place] tablet [address] lamoTRIgine 2021-03 Yes 100mg Take 100 U nivers (LAMICTAL) 1-24 mg by ity of 100 mg 18:07: mouth at [place] tablet 27 bedtime. [facility] [address] [facility] Branch lamoTRIgine 2021-03 Yes 100mg Take 100 U nivers (LAMICTAL) 1-24 mg by ity of 100 mg 18:07: mouth at [place] tablet 27 bedtime. [facility] [address] [facility] Branch lamoTRIgine 2021-03 Yes 100mg Take 100 U nivers (LAMICTAL) 1-24 mg by ity of 100 mg 18:07: mouth at [place] tablet 27 bedtime. [facility] [address] [facility] Branch lamoTRIgine 2021-03 Yes 100mg Take 100 U nivers (LAMICTAL) 1-24 mg by ity of 100 mg 18:07: mouth at [place] tablet 27 bedtime. [facility] [address] [facility] Branch proMETHazin 2021-03 Yes [id number] 25mg Take 1 Univers e 25 mg 1-15 tablet by ity of tablet 00:00: mouth [place] 00 every 4 Medical (four) Branch hours as needed for Nausea and Vomiting (N/V). proMETHazin 2021-03 Yes [id number] 25mg Take 1 Univers e 25 mg 1-15 tablet by ity of tablet 00:00: mouth [place] 00 every 4 Medical (four) Branch hours as needed for Nausea and Vomiting (N/V). proMETHazin 2021-03 Yes [id number] 25mg Take 1 Univers e 25 mg 1-15 tablet by ity of tablet 00:00: mouth [place] 00 every 4 Medical (four) Branch hours as needed for Nausea and Vomiting (N/V). proMETHazin 2021-03 Yes [id number] 25mg Take 1 Univers e 25 mg 1-15 tablet by ity of tablet 00:00: mouth [place] 00 every 4 Medical (four) Branch hours as needed for Nausea and Vomiting (N/V). proMETHazin 2021-03 Yes [id number] 25mg Take 1 Univers e 25 mg 1-15 tablet by ity of tablet 00:00: mouth [place] 00 every 4 Medical (four) Branch hours as needed for Nausea and Vomiting (N/V). proMETHazin 2021-03 Yes [id number] 25mg Take 1 Univers e 25 mg 1-15 tablet by ity of tablet 00:00: mouth [place] 00 every 4 Medical (four) Branch hours as needed for Nausea and Vomiting (N/V). proMETHazin 2021-03 Yes [id number] 25mg Take 1 Univers e 25 mg 1-15 tablet by ity of tablet 00:00: mouth [place] 00 every 4 Medical (four) Branch hours as needed for Nausea and Vomiting (N/V). proMETHazin 2021-03 Yes [id number] 25mg Take 1 Univers e 25 mg 1-15 tablet by ity of tablet 00:00: mouth [place] 00 every 4 Medical (four) Branch hours as needed for Nausea and Vomiting (N/V). proMETHazin 2021-03 Yes [id number] 25mg Take 1 Univers e 25 mg 1-15 tablet by ity of tablet 00:00: mouth [place] 00 every 4 Medical (four) Branch hours as needed for Nausea and Vomiting (N/V). proMETHazin 2021-03- No [id number] 25mg Take 1 Univers e 25 mg 1-15 12-05 tablet by ity of tablet 00:00: 00:00 mouth [place] 00 :00 every 4 Medical (four) Branch hours as needed for Nausea and Vomiting (N/V). proMETHazin 2021-03- No [id number] 25mg Take 1 Univers e 25 mg 1-15 12-05 tablet by ity of tablet 00:00: 00:00 mouth [place] 00 :00 every 4 Medical (four) Branch hours as needed for Nausea and Vomiting (N/V). lamoTRIgine 2021-03 Yes [id number] 75mg Take 3 Univers 25 mg 1-10 tablets by ity of tablet 00:00: mouth [place] 00 every Medical morning. Branch lamoTRIgine 2021-03 Yes [id number] 100mg Take 1 Univers (LAMICTAL) 1-10 tablet by ity of 100 mg 00:00: mouth at [place] tablet 00 bedtime. Medical Branch lamoTRIgine 2021-03 Yes [id number] 75mg Take 3 Univers 25 mg 1-10 tablets by ity of tablet 00:00: mouth [place] 00 every Medical morning. Branch lamoTRIgine 2021-03 Yes [id number] 100mg Take 1 Univers (LAMICTAL) 1-10 tablet by ity of 100 mg 00:00: mouth at [place] tablet 00 bedtime. Medical Branch lamoTRIgine 2021-03 Yes [id number] 75mg Take 3 Univers 25 mg 1-10 tablets by ity of tablet 00:00: mouth [place] 00 every Medical morning. Branch lamoTRIgine 2021-03 Yes [id number] 100mg Take 1 Univers (LAMICTAL) 1-10 tablet by ity of 100 mg 00:00: mouth at [place] tablet 00 bedtime. Medical Branch lamoTRIgine 2021-03 Yes [id number] 75mg Take 3 Univers 25 mg 1-10 tablets by ity of tablet 00:00: mouth [place] 00 every Medical morning. Branch lamoTRIgine 2021-03 Yes [id number] 100mg Take 1 Univers (LAMICTAL) 1-10 tablet by ity of 100 mg 00:00: mouth at [place] tablet 00 bedtime. Medical Branch lamoTRIgine 2021-03 Yes [id number] 75mg Take 3 Univers 25 mg 1-10 tablets by ity of tablet 00:00: mouth [place] 00 every Medical morning. Branch lamoTRIgine 2021-03 Yes [id number] 100mg Take 1 Univers (LAMICTAL) 1-10 tablet by ity of 100 mg 00:00: mouth at [place] tablet 00 bedtime. Medical Branch lamoTRIgine 2021-03 Yes [id number] 75mg Take 3 Univers 25 mg 1-10 tablets by ity of tablet 00:00: mouth [place] 00 every Medical morning. Branch lamoTRIgine 2021-03 Yes [id number] 100mg Take 1 Univers (LAMICTAL) 1-10 tablet by ity of 100 mg 00:00: mouth at [place] tablet 00 bedtime. Medical Branch lamoTRIgine 2021-03 Yes [id number] 75mg Take 3 Univers 25 mg 1-10 tablets by ity of tablet 00:00: mouth [place] 00 every Medical morning. Branch lamoTRIgine 2021-03 Yes [id number] 100mg Take 1 Univers (LAMICTAL) 1-10 tablet by ity of 100 mg 00:00: mouth at [place] tablet 00 bedtime. Medical Branch lamoTRIgine 2021-03 Yes [id number] 75mg Take 3 Univers 25 mg 1-10 tablets by ity of tablet 00:00: mouth [place] 00 every Medical morning. Branch lamoTRIgine 2021-03 Yes [id number] 100mg Take 1 Univers (LAMICTAL) 1-10 tablet by ity of 100 mg 00:00: mouth at [place] tablet 00 bedtime. Medical Branch lamoTRIgine 2021-03 Yes [id number] 75mg Take 3 Univers 25 mg 1-10 tablets by ity of tablet 00:00: mouth [place] 00 every Medical morning. Branch lamoTRIgine 2021-03 Yes [id number] 100mg Take 1 Univers (LAMICTAL) 1-10 tablet by ity of 100 mg 00:00: mouth at [place] tablet 00 bedtime. Medical Branch lamoTRIgine 2021-03 Yes [id number] 75mg Take 3 Univers 25 mg 1-10 tablets by ity of tablet 00:00: mouth [place] 00 every Medical morning. Branch lamoTRIgine 2021-03 Yes [id number] 100mg Take 1 Univers (LAMICTAL) 1-10 tablet by ity of 100 mg 00:00: mouth at [place] tablet 00 bedtime. Medical Branch lamoTRIgine 2021-03 Yes [id number] 75mg Take 3 Univers 25 mg 1-10 tablets by ity of tablet 00:00: mouth [place] 00 every Medical morning. Branch lamoTRIgine 2021-03 Yes [id number] 100mg Take 1 Univers (LAMICTAL) 1-10 tablet by ity of 100 mg 00:00: mouth at [place] tablet 00 bedtime. Medical Branch lamoTRIgine 2021-03 Yes [id number] 75mg Take 3 Univers 25 mg 1-10 tablets by ity of tablet 00:00: mouth [place] 00 every Medical morning. Branch lamoTRIgine 2021-03 Yes [id number] 100mg Take 1 Univers (LAMICTAL) 1-10 tablet by ity of 100 mg 00:00: mouth at [place] tablet 00 bedtime. Medical Branch lamoTRIgine 2021-03 Yes [id number] 75mg Take 3 Univers 25 mg 1-10 tablets by ity of tablet 00:00: mouth [place] 00 every Medical morning. Branch lamoTRIgine 2021-03 Yes [id number] 100mg Take 1 Univers (LAMICTAL) 1-10 tablet by ity of 100 mg 00:00: mouth at [place] tablet 00 bedtime. Medical Branch lamoTRIgine 2021-03 Yes [id number] 75mg Take 3 Univers 25 mg 1-10 tablets by ity of tablet 00:00: mouth [place] 00 every Medical morning. Branch lamoTRIgine 2021-03 Yes [id number] 100mg Take 1 Univers (LAMICTAL) 1-10 tablet by ity of 100 mg 00:00: mouth at [place] tablet 00 bedtime. Medical Branch lamoTRIgine 2021-03 Yes [id number] 75mg Take 3 Univers 25 mg 1-10 tablets by ity of tablet 00:00: mouth [place] 00 every Medical morning. Branch lamoTRIgine 2021-03 Yes [id number] 100mg Take 1 Univers (LAMICTAL) 1-10 tablet by ity of 100 mg 00:00: mouth at [place] tablet 00 bedtime. [facility] Branch lamoTRIgine 2021-03 Yes [id number] 75mg Take 3 Univers 25 mg 1-10 tablets by ity of tablet 00:00: mouth [place] 00 every Medical morning. Branch lamoTRIgine 2021-03 Yes [id number] 100mg Take 1 Univers (LAMICTAL) 1-10 tablet by ity of 100 mg 00:00: mouth at [place] tablet 00 bedtime. [facility] Branch lamoTRIgine 2021-03 Yes [id number] 75mg Take 3 Univers 25 mg 1-10 tablets by ity of tablet 00:00: mouth [place] 00 every Medical morning. Branch lamoTRIgine 2021-03 Yes [id number] 100mg Take 1 Univers (LAMICTAL) 1-10 tablet by ity of 100 mg 00:00: mouth at [place] tablet 00 bedtime. [facility] Branch lamoTRIgine 2021-03 Yes [id number] 75mg Take 3 Univers 25 mg 1-10 tablets by ity of tablet 00:00: mouth [place] 00 every Medical morning. Branch lamoTRIgine 2021-03 Yes [id number] 100mg Take 1 Univers (LAMICTAL) 1-10 tablet by ity of 100 mg 00:00: mouth at [place] tablet 00 bedtime. Medical Branch lamoTRIgine 2021-03 Yes [id number] 75mg Take 3 Univers 25 mg 1-10 tablets by ity of tablet 00:00: mouth [place] 00 every Medical morning. Branch lamoTRIgine 2021-03 Yes [id number] 100mg Take 1 Univers (LAMICTAL) 1-10 tablet by ity of 100 mg 00:00: mouth at [place] tablet 00 bedtime. [facility] Branch lamoTRIgine 2021-03 Yes [id number] 75mg Take 3 Univers 25 mg 1-10 tablets by ity of tablet 00:00: mouth [place] 00 every Medical morning. Branch lamoTRIgine 2021-03 Yes [id number] 100mg Take 1 Univers (LAMICTAL) 1-10 tablet by ity of 100 mg 00:00: mouth at [place] tablet 00 bedtime. Medical Branch lamoTRIgine 2021-03 Yes [id number] 75mg Take 3 Univers 25 mg 1-10 tablets by ity of tablet 00:00: mouth [place] 00 every Medical morning. Branch lamoTRIgine 2021-03 Yes [id number] 100mg Take 1 Univers (LAMICTAL) 1-10 tablet by ity of 100 mg 00:00: mouth at [place] tablet 00 bedtime. [facility] Branch lamoTRIgine 2021-03 Yes [id number] 75mg Take 3 Univers 25 mg 1-10 tablets by ity of tablet 00:00: mouth [place] 00 every Medical morning. Branch lamoTRIgine 2021-03 Yes [id number] 100mg Take 1 Univers (LAMICTAL) 1-10 tablet by ity of 100 mg 00:00: mouth at [place] tablet 00 bedtime. Medical Branch lamoTRIgine 2021-03 Yes [id number] 75mg Take 3 Univers 25 mg 1-10 tablets by ity of tablet 00:00: mouth [place] 00 every Medical morning. Branch lamoTRIgine 2021-03 Yes [id number] 100mg Take 1 Univers (LAMICTAL) 1-10 tablet by ity of 100 mg 00:00: mouth at [place] tablet 00 bedtime. Medical Branch lamoTRIgine 2021-03 Yes [id number] 75mg Take 3 Univers 25 mg 1-10 tablets by ity of tablet 00:00: mouth [place] 00 every Medical morning. Branch lamoTRIgine 2021-03 Yes [id number] 100mg Take 1 Univers (LAMICTAL) 1-10 tablet by ity of 100 mg 00:00: mouth at [place] tablet 00 bedtime. Medical Branch lamoTRIgine 2021-03 Yes [id number] 75mg Take 3 Univers 25 mg 1-10 tablets by ity of tablet 00:00: mouth [place] 00 every Medical morning. Branch lamoTRIgine 2021-03 Yes [id number] 100mg Take 1 Univers (LAMICTAL) 1-10 tablet by ity of 100 mg 00:00: mouth at [place] tablet 00 bedtime. Medical Branch lamoTRIgine 2021-03 Yes [id number] 75mg Take 3 Univers 25 mg 1-10 tablets by ity of tablet 00:00: mouth [place] 00 every Medical morning. Branch lamoTRIgine 2021-03 Yes [id number] 100mg Take 1 Univers (LAMICTAL) 1-10 tablet by ity of 100 mg 00:00: mouth at [place] tablet 00 bedtime. Medical Branch lamoTRIgine 2021-03 Yes [id number] 75mg Take 3 Univers 25 mg 1-10 tablets by ity of tablet 00:00: mouth [place] 00 every Medical morning. Branch lamoTRIgine 2021-03 Yes [id number] 100mg Take 1 Univers (LAMICTAL) 1-10 tablet by ity of 100 mg 00:00: mouth at [place] tablet 00 bedtime. Medical Branch lamoTRIgine 2021-03 Yes [id number] 75mg Take 3 Univers 25 mg 1-10 tablets by ity of tablet 00:00: mouth [place] 00 every Medical morning. Branch lamoTRIgine 2021-03 Yes [id number] 100mg Take 1 Univers (LAMICTAL) 1-10 tablet by ity of 100 mg 00:00: mouth at [place] tablet 00 bedtime. Medical Branch lamoTRIgine 2021-03 Yes [id number] 75mg Take 3 Univers 25 mg 1-10 tablets by ity of tablet 00:00: mouth [place] 00 every Medical morning. Branch lamoTRIgine 2021-03 Yes [id number] 100mg Take 1 Univers (LAMICTAL) 1-10 tablet by ity of 100 mg 00:00: mouth at [place] tablet 00 bedtime. Medical Branch lamoTRIgine 2021-03 Yes [id number] 75mg Take 3 Univers 25 mg 1-10 tablets by ity of tablet 00:00: mouth [place] 00 every Medical morning. Branch lamoTRIgine 2021-03 Yes [id number] 100mg Take 1 Univers (LAMICTAL) 1-10 tablet by ity of 100 mg 00:00: mouth at [place] tablet 00 bedtime. Medical Branch lamoTRIgine 2021-03 Yes [id number] 75mg Take 3 Univers 25 mg 1-10 tablets by ity of tablet 00:00: mouth [place] 00 every Medical morning. Branch lamoTRIgine 2021-03 Yes [id number] 100mg Take 1 Univers (LAMICTAL) 1-10 tablet by ity of 100 mg 00:00: mouth at [place] tablet 00 bedtime. Medical Branch lamoTRIgine 2021-03 Yes [id number] 75mg Take 3 Univers 25 mg 1-10 tablets by ity of tablet 00:00: mouth [place] 00 every Medical morning. Branch lamoTRIgine 2021-03 Yes [id number] 100mg Take 1 Univers (LAMICTAL) 1-10 tablet by ity of 100 mg 00:00: mouth at [place] tablet 00 bedtime. Medical Branch lamoTRIgine 2021-03 Yes [id number] 75mg Take 3 Univers 25 mg 1-10 tablets by ity of tablet 00:00: mouth [place] 00 every Medical morning. Branch lamoTRIgine 2021-03 Yes [id number] 100mg Take 1 Univers (LAMICTAL) 1-10 tablet by ity of 100 mg 00:00: mouth at [place] tablet 00 bedtime. Medical Branch lamoTRIgine 2021-03 Yes [id number] 100mg Take 1 Univers (LAMICTAL) 1-10 tablet by ity of 100 mg 00:00: mouth at [place] tablet 00 bedtime. Medical Branch lamoTRIgine 2021-03 Yes [id number] 100mg Take 1 Univers (LAMICTAL) 1-10 tablet by ity of 100 mg 00:00: mouth at [place] tablet 00 bedtime. Medical Branch lamoTRIgine 2021-03 Yes [id number] 100mg Take 1 Univers (LAMICTAL) 1-10 tablet by ity of 100 mg 00:00: mouth at [place] tablet 00 bedtime. Medical Branch lamoTRIgine 2021-03 Yes [id number] 100mg Take 1 Univers (LAMICTAL) 1-10 tablet by ity of 100 mg 00:00: mouth at [place] tablet 00 bedtime. Medical Branch lamoTRIgine 2021-03 Yes [id number] 100mg Take 1 Univers (LAMICTAL) 1-10 tablet by ity of 100 mg 00:00: mouth at [place] tablet 00 bedtime. Medical Branch lamoTRIgine 2021-03 Yes [id number] 100mg Take 1 Univers (LAMICTAL) 1-10 tablet by ity of 100 mg 00:00: mouth at [place] tablet 00 bedtime. Medical Branch lamoTRIgine 2021-03 Yes [id number] 100mg Take 1 Univers (LAMICTAL) 1-10 tablet by ity of 100 mg 00:00: mouth at [place] tablet 00 bedtime. Medical Branch lamoTRIgine 2021-03 Yes [id number] 100mg Take 1 Univers (LAMICTAL) 1-10 tablet by ity of 100 mg 00:00: mouth at [place] tablet 00 bedtime. Medical Branch lamoTRIgine 2021-03 Yes [id number] 100mg Take 1 Univers (LAMICTAL) 1-10 tablet by ity of 100 mg 00:00: mouth at [place] tablet 00 bedtime. Medical Branch lamoTRIgine 2021-03 Yes [id number] 100mg Take 1 Univers (LAMICTAL) 1-10 tablet by ity of 100 mg 00:00: mouth at [place] tablet 00 bedtime. [facility] Branch lamoTRIgine 2021-03 Yes [id number] 100mg Take 1 Univers (LAMICTAL) 1-10 tablet by ity of 100 mg 00:00: mouth at [place] tablet 00 bedtime. Medical Branch lamoTRIgine 2021-03 Yes [id number] 100mg Take 1 Univers (LAMICTAL) 1-10 tablet by ity of 100 mg 00:00: mouth at [place] tablet 00 bedtime. [facility] Branch lamoTRIgine 2021-03 Yes [id number] 100mg Take 1 Univers (LAMICTAL) 1-10 tablet by ity of 100 mg 00:00: mouth at [place] tablet 00 bedtime. [facility] Branch lamoTRIgine 2021-03 Yes [id number] 100mg Take 1 Univers (LAMICTAL) 1-10 tablet by ity of 100 mg 00:00: mouth at [place] tablet 00 bedtime. [facility] Branch lamoTRIgine 2021-03 Yes [id number] 100mg Take 1 Univers (LAMICTAL) 1-10 tablet by ity of 100 mg 00:00: mouth at [place] tablet 00 bedtime. [facility] Branch lamoTRIgine 2021-03- No [id number] 75mg Take 3 Univers 25 mg 1-10 05-03 tablets by ity of tablet 00:00: 00:00 mouth [place] 00 :00 every Medical morning. Branch lamoTRIgine 2021-03- No [id number] 75mg Take 3 Univers 25 mg 1-10 05-03 tablets by ity of tablet 00:00: 00:00 mouth [place] 00 :00 every Medical morning. Branch SELECT-OB + 2021-03 [...] combo pack Branch foLIC acid 2021-03- No [id number] 4mg Take 4 Univers 1 mg tablet 0-27 12-27 tablets by i ty of 00:00: 05:59 mouth in [place] 00 :00 the Medical morning Branch for 60 days. foLIC acid 2021-03- No [id number] 4mg Take 4 Univers 1 mg tablet 0-27 12-27 tablets by i ty of 00:00: 05:59 mouth in [place] 00 :00 the Medical morning Branch for 60 days. foLIC acid 2021-03- No [id number] 4mg Take 4 Univers 1 mg tablet 0-27 12-27 tablets by i ty of 00:00: 05:59 mouth in [place] 00 :00 the Medical morning Branch for 60 days. foLIC acid 2021-03- No [id number] 4mg Take 4 Univers 1 mg tablet 0-27 12-27 tablets by i ty of 00:00: 05:59 mouth in [place] 00 :00 the Medical morning Branch for 60 days. foLIC acid 2021-03- No [id number] 4mg Take 4 Univers 1 mg tablet 0-27 12-27 tablets by i ty of 00:00: 05:59 mouth in [place] 00 :00 the Medical morning Branch for 60 days. foLIC acid 2021-03- No [id number] 4mg Take 4 Univers 1 mg tablet 0-27 12-27 tablets by i ty of 00:00: 05:59 mouth in [place] 00 :00 the Medical morning Branch for 60 days. foLIC acid 2021-03- No [id number] 4mg Take 4 Univers 1 mg tablet 0-27 12-27 tablets by i ty of 00:00: 05:59 mouth in [place] 00 :00 the [facility] morning Branch for 60 days. foLIC acid 2021-03- No [id number] 4mg Take 4 Univers 1 mg tablet 0-27 12-27 tablets by i ty of 00:00: 05:59 mouth in [place] 00 :00 the Medical morning Branch for 60 days. foLIC acid 2021-03- No [id number] 4mg Take 4 Univers 1 mg tablet 0-27 12-27 tablets by i ty of 00:00: 05:59 mouth in [place] 00 :00 the Medical morning Branch for 60 days. foLIC acid 2021-03- No [id number] 4mg Take 4 Univers 1 mg tablet 0-27 12-27 tablets by i ty of 00:00: 05:59 mouth in [place] 00 :00 the Medical morning Branch for 60 days. foLIC acid 2021-03- No [id number] 4mg Take 4 Univers 1 mg tablet 0-27 12-27 tablets by i ty of 00:00: 05:59 mouth in [place] 00 :00 the Medical morning Branch for 60 days. foLIC acid 2021-03- No [id number] 4mg Take 4 Univers 1 mg tablet 0-27 12-27 tablets by i ty of 00:00: 05:59 mouth in [place] 00 :00 the Medical morning Branch for 60 days. foLIC acid 2021-03- No [id number] 4mg Take 4 Univers 1 mg tablet 0-27 12-27 tablets by i ty of 00:00: 05:59 mouth in [place] 00 :00 the Medical morning Branch for 60 days. foLIC acid 2021-03- No [id number] 4mg Take 4 Univers 1 mg tablet 0-27 12-27 tablets by i ty of 00:00: 05:59 mouth in [place] 00 :00 the Medical morning Branch for 60 days. foLIC acid 2021-03- No [id number] 4mg Take 4 Univers 1 mg tablet 0-27 12-27 tablets by i ty of 00:00: 05:59 mouth in [place] 00 :00 the Medical morning Branch for 60 days. foLIC acid 2021-03- No [id number] 4mg Take 4 Univers 1 mg tablet 0-27 12-27 tablets by i ty of 00:00: 05:59 mouth in [place] 00 :00 the Medical morning Branch for 60 days. foLIC acid 2021-03- No [id number] 4mg Take 4 Univers 1 mg tablet 0-27 12-27 tablets by i ty of 00:00: 05:59 mouth in [place] 00 :00 the Medical morning Branch for 60 days. foLIC acid 2021-03- No [id number] 4mg Take 4 Univers 1 mg tablet 0-27 12-27 tablets by i ty of 00:00: 05:59 mouth in [place] 00 :00 the Medical morning Branch for 60 days. foLIC acid 2021-03- No [id number] 4mg Take 4 Univers 1 mg tablet 0-27 12-27 tablets by i ty of 00:00: 05:59 mouth in [place] 00 :00 the Medical morning Branch for 60 days. foLIC acid 2021-03- No [id number] 4mg Take 4 Univers 1 mg tablet 0-27 12-27 tablets by i ty of 00:00: 05:59 mouth in [place] 00 :00 the Medical morning Branch for 60 days. foLIC acid 2021-03- No [id number] 4mg Take 4 Univers 1 mg tablet 0-27 12-27 tablets by i ty of 00:00: 05:59 mouth in [place] 00 :00 the Medical morning Branch for 60 days. foLIC acid 2021-03- No [id number] 4mg Take 4 Univers 1 mg tablet 0-27 12-27 tablets by i ty of 00:00: 05:59 mouth in [place] 00 :00 the Medical morning Branch for 60 days. foLIC acid 2021-03- No [id number] 4mg Take 4 Univers 1 mg tablet 0-27 12-27 tablets by i ty of 00:00: 05:59 mouth in [place] 00 :00 the Medical morning Branch for 60 days. foLIC acid 2021-03- No [id number] 4mg Take 4 Univers 1 mg tablet 0-27 12-27 tablets by i ty of 00:00: 05:59 mouth in [place] 00 :00 the Medical morning Branch for 60 days. foLIC acid 2021-03- No [id number] 4mg Take 4 Univers 1 mg tablet 0-27 12-27 tablets by i ty of 00:00: 05:59 mouth in [place] 00 :00 the Medical morning Branch for 60 days. foLIC acid 2021-03- No [id number] 4mg Take 4 Univers 1 mg tablet 0-27 12-27 tablets by i ty of 00:00: 05:59 mouth in [place] 00 :00 the Medical morning Branch for 60 days. foLIC acid 2021-03- No [id number] 4mg Take 4 Univers 1 mg tablet 0-27 12-27 tablets by i ty of 00:00: 05:59 mouth in [place] 00 :00 the Medical morning Branch for 60 days. foLIC acid 2021-03- No [id number] 4mg Take 4 Univers 1 mg tablet [...] 00 MOUTH ONCE Med ical DAILY IN [place] THE MORNING lamoTRIgine 2021-03 Yes CHEW AND [place] 25 mg 0-06 SWALLOW 2 ity of disintegrat 00:00: TABLETS BY [place] ing tablet 00 MOUTH ONCE Med ical DAILY IN [place] THE MORNING lamoTRIgine 2021-03 Yes CHEW AND [facility] [place] 25 mg 0-06 SWALLOW 2 ity of disintegrat 00:00: TABLETS BY [place] ing tablet 00 MOUTH ONCE Med ical DAILY IN [place] THE MORNING lamoTRIgine 2021-03 Yes CHEW AND [facility] [place] 25 mg 0-06 SWALLOW 2 ity of disintegrat 00:00: TABLETS BY [place] ing tablet 00 MOUTH ONCE Med ical DAILY IN [place] THE MORNING lamoTRIgine 2021-03 Yes CHEW AND [facility] 25 mg 0-06 SWALLOW 2 ity of disintegrat 00:00: TABLETS BY [place] ing tablet 00 MOUTH ONCE Med ical DAILY IN [place] THE MORNING lamoTRIgine 2021-03 Yes CHEW AND [facility] [place] 25 mg 0-06 SWALLOW 2 ity of disintegrat 00:00: TABLETS BY [place] ing tablet 00 MOUTH ONCE Med ical DAILY IN [place] THE MORNING lamoTRIgine 2021-03 Yes CHEW AND [facility] [place] 25 mg 0-06 SWALLOW 2 ity of disintegrat 00:00: TABLETS BY [place] ing tablet 00 MOUTH ONCE Med ical DAILY IN [place] THE MORNING lamoTRIgine 2021-03 Yes CHEW AND [facility] [place] 25 mg 0-06 SWALLOW 2 ity of disintegrat 00:00: TABLETS BY [place] ing tablet 00 MOUTH ONCE Med ical DAILY IN [place] THE MORNING lamoTRIgine 2021-03 Yes CHEW AND [facility] [place] 25 mg 0-06 SWALLOW 2 ity of disintegrat 00:00: TABLETS BY [place] ing tablet 00 MOUTH ONCE Med ical DAILY IN [place] THE MORNING lamoTRIgine 2021-03 Yes CHEW AND [facility] [place] 25 mg 0-06 SWALLOW 2 ity of disintegrat 00:00: TABLETS BY [place] ing tablet 00 MOUTH ONCE Med ical DAILY IN [place] THE MORNING lamoTRIgine 2021-03 Yes CHEW AND [facility] [place] 25 mg 0-06 SWALLOW 2 ity of disintegrat 00:00: TABLETS BY [place] ing tablet 00 MOUTH ONCE Med ical DAILY IN [place] THE MORNING lamoTRIgine 2021-03 Yes CHEW AND [...] 18:22: mouth at [place] tablet [address] lamoTRIgine Yes 100mg Take 100 U nivers (LAMICTAL) 9-25 mg by ity of 100 mg 18:22: mouth at [place] tablet [address] lamoTRIgine Yes 100mg Take 100 U nivers (LAMICTAL) 9-25 mg by ity of 100 mg 18:22: mouth at [place] tablet 12 bedtime. [facility] 25 [facility] lamoTRIgine Yes 100mg Take 100 U nivers (LAMICTAL) 9-25 mg by ity of 100 mg 18:22: mouth at [place] tablet [address] lamoTRIgine Yes 100mg Take 100 U nivers (LAMICTAL) 9-25 mg by ity of 100 mg 18:22: mouth at [place] tablet 12 bedtime. Medical 25 [facility] lamoTRIgine Yes 100mg Take 100 U nivers (LAMICTAL) 9-25 mg by ity of 100 mg 18:22: mouth at [place] tablet 12 bedtime. Medical 25 [facility] lamoTRIgine Yes 100mg Take 100 U nivers (LAMICTAL) 9-25 mg by ity of 100 mg 18:22: mouth at [place] tablet 12 bedtime. Medical 25 [facility] lamoTRIgine 0 Yes 100mg Take 100 U nivers (LAMICTAL) 9-25 mg by ity of 100 mg 18:22: mouth at [place] tablet 12 bedtime. Medical 25 [facility] lamoTRIgine Yes 100mg Take 100 U nivers (LAMICTAL) 9-25 mg by ity of 100 mg 18:22: mouth at [place] tablet 12 bedtime. Medical 25 [facility] lamoTRIgine Yes 100mg Take 100 U nivers (LAMICTAL) 9-25 mg by ity of 100 mg 18:22: mouth at [place] tablet 12 bedtime. Medical 25 [facility] lamoTRIgine Yes 100mg Take 100 U nivers (LAMICTAL) 9-25 mg by ity of 100 mg 18:22: mouth at [place] tablet 12 bedtime. Medical 25 [facility] lamoTRIgine Yes 100mg Take 100 U nivers (LAMICTAL) 9-25 mg by ity of 100 mg 18:22: mouth at [place] tablet 12 bedtime. Medical 25 [facility] lamoTRIgine Yes 100mg Take 100 U nivers (LAMICTAL) 9-25 mg by ity of 100 mg 18:22: mouth at [place] tablet 12 bedtime. Medical 25 [facility] lamoTRIgine 0 Yes 100mg Take 100 U nivers (LAMICTAL) 9-25 mg by ity of 100 mg 18:22: mouth at [place] tablet 12 bedtime. Medical 25 [facility] lamoTRIgine Yes 100mg Take 100 U nivers (LAMICTAL) 9-25 mg by ity of 100 mg 18:22: mouth at [place] tablet 12 bedtime. Medical 25 [facility] lamoTRIgine Yes 100mg Take 100 U nivers (LAMICTAL) 9-25 mg by ity of 100 mg 18:22: mouth at [place] tablet 12 bedtime. Medical 25 [facility] lamoTRIgine Yes 100mg Take 100 U nivers (LAMICTAL) 9-25 mg by ity of 100 mg 18:22: mouth at [place] tablet 12 bedtime. Medical 25 [facility] lamoTRIgine Yes 100mg Take 100 U nivers (LAMICTAL) 9-25 mg by ity of 100 mg 18:22: mouth at [place] tablet 12 bedtime. Medical 25 [facility] lamoTRIgine Yes 100mg Take 100 U nivers (LAMICTAL) 9-25 mg by ity of 100 mg 18:22: mouth at [place] tablet 12 bedtime. Medical 25 [facility] lamoTRIgine Yes 100mg Take 100 U nivers (LAMICTAL) 9-25 mg by ity of 100 mg 18:22: mouth at [place] tablet 12 bedtime. Medical 25 [facility] lamoTRIgine Yes 100mg Take 100 U nivers (LAMICTAL) 9-25 mg by ity of 100 mg 18:22: mouth at [place] tablet 12 bedtime. Medical 25 [facility] lamoTRIgine Yes 100mg Take 100 U nivers (LAMICTAL) 9-25 mg by ity of 100 mg 18:22: mouth at [place] tablet 12 bedtime. Medical 25 [facility] lamoTRIgine Yes 100mg Take 100 U nivers (LAMICTAL) 9-25 mg by ity of 100 mg 18:22: mouth at [place] tablet 12 bedtime. Medical 25 [facility] lamoTRIgine Yes 100mg Take 100 U nivers (LAMICTAL) 9-25 mg by ity of 100 mg 18:22: mouth at [place] tablet 12 bedtime. Medical 25 [facility] lamoTRIgine Yes 100mg Take 100 U nivers (LAMICTAL) 9-25 mg by ity of 100 mg 18:22: mouth at [place] tablet 12 bedtime. Medical 25 [facility] lamoTRIgine Yes 100mg Take 100 U nivers (LAMICTAL) 9-25 mg by ity of 100 mg 18:22: mouth at [place] tablet 12 bedtime. Medical 25 [facility] cyclobenzap 0 2021- No [id number] 10mg Take 1 [facility] rine 10 mg 9-25 10-01 tablet by ity of tablet 00:00: 04:59 mouth in [place] 00 :00 the Medical morning Branch and 1 tablet at noon and 1 tablet in the evening. Do all this for 15 doses. cyclobenzap 2021-2021- No [id number] 10mg Take 1 [facility] rine 10 mg 9-25 10-01 tablet by ity of tablet 00:00: 04:59 mouth in [place] 00 :00 the Medical morning Branch and 1 tablet at noon and 1 tablet in the evening. Do all this for 15 doses. hydrOXYzine 2021-0 Yes Univer s 25 mg/mL 9-16 ity of injection 00:00: [place] [address] Medical Branch hydrOXYzine 2-0 Yes Univer s 25 mg/mL 9-16 ity of injection 00:00: [place] Medical Branch hydrOXYzine 2-0 Yes Univer s 25 mg/mL 9-16 ity of injection 00:00: [place] [address] Medical Branch hydrOXYzine 2-0 Yes Univer s 25 mg/mL 9-16 ity of injection 00:00: [place] [address] Medical Branch hydrOXYzine 2-0 Yes Univer s 25 mg/mL 9-16 ity of injection 00:00: [place] [address] Medical Branch hydrOXYzine 2-0 Yes Univer s 25 mg/mL 9-16 ity of injection 00:00: [place] [facility] Branch hydrOXYzine 2-0 Yes Univer s 25 mg/mL 9-16 ity of injection 00:00: [place] [address] Medical Branch hydrOXYzine 2-0 Yes Univer s 25 mg/mL 9-16 ity of injection 00:00: [place] [address] Medical Branch hydrOXYzine 2-0 Yes Univer s 25 mg/mL 9-16 ity of injection 00:00: [place] [address] Medical Branch hydrOXYzine 2022-0 Yes Univer s 25 mg/mL 9-16 ity of injection 00:00: [place] [address] Medical Branch hydrOXYzine 2-0 Yes Univer s 25 mg/mL 9-16 ity of injection 00:00: [place] 00 Medical Branch hydrOXYzine 2022-0 Yes Univer s 25 mg/mL 9-16 ity of injection 00:00: [place] 00 Medical Branch hydrOXYzine 2-0 Yes Univer s 25 mg/mL 9-16 ity of injection 00:00: [place] 00 Medical Branch hydrOXYzine 2022-0 Yes Univer s 25 mg/mL 9-16 ity of injection 00:00: [place] [address] Medical Branch hydrOXYzine 2-0 Yes Univer s 25 mg/mL 9-16 ity of injection 00:00: [place] [address] Medical Branch hydrOXYzine 2022-0 Yes Univer s 25 mg/mL 9-16 ity of injection 00:00: [place] [address] Medical Branch hydrOXYzine 2-0 Yes Univer s 25 mg/mL 9-16 ity of injection 00:00: [place] [address] Medical Branch hydrOXYzine 2-0 Yes Univer s 25 mg/mL 9-16 ity of injection 00:00: [place] [address] Medical Branch hydrOXYzine 2-0 Yes Univer s 25 mg/mL 9-16 ity of injection 00:00: [place] [address] Medical Branch hydrOXYzine 2-0 Yes Univer s 25 mg/mL 9-16 ity of injection 00:00: [place] [address] Medical Branch hydrOXYzine 2-0 Yes Univer s 25 mg/mL 9-16 ity of injection 00:00: [place] [address] Medical Branch hydrOXYzine 2-0 Yes Univer s 25 mg/mL 9-16 ity of injection 00:00: [place] [address] Medical Branch hydrOXYzine 2022-0 Yes Univer s 25 mg/mL 9-16 ity of injection 00:00: [place] 00 Medical Branch hydrOXYzine 2-0 Yes Univer s 25 mg/mL 9-16 ity of injection 00:00: [place] [address] Medical Branch hydrOXYzine 2022-0 Yes Univer s 25 mg/mL 9-16 ity of injection 00:00: [place] 00 Medical Branch hydrOXYzine 2022-0 2022- No Unive rs 25 mg/mL 9-16 12-05 ity of injection 00:00: 00:00 [place] 00 :00 Medical Branch hydrOXYzine 2-0 2022- No Unive rs 25 mg/mL 9-16 12-05 ity of injection 00:00: 00:00 [place] 00 :00 Medical Branch hydrOXYzine 2022-0 Yes Univer s 25 mg 9-13 ity of capsule 00:00: [place] 00 Medical Branch hydrOXYzine 2-0 Yes Univer s 25 mg 9-13 ity of capsule 00:00: [place] 00 Medical Branch hydrOXYzine 2022-0 Yes Univer s 25 mg 9-13 ity of capsule 00:00: [place] 00 Medical Branch hydrOXYzine 2022-0 Yes Univer s 25 mg 9-13 ity of capsule 00:00: [place] 00 Medical Branch hydrOXYzine 2022-0 2022- No Unive rs 25 mg 9-13 11-10 ity of capsule 00:00: 00:00 [place] 00 :00 Medical Branch hydrOXYzine 2022-0 2022- No Unive rs 25 mg 9-13 11-10 ity of capsule 00:00: 00:00 [place] 00 :00 Medical Branch hydrOXYzine 2-0 2022- No Unive rs 25 mg 9-13 11-10 ity of capsule 00:00: 00:00 [place] 00 :00 Medical Branch hydrOXYzine 2-0 2022- No Unive rs 25 mg 9-13 11-10 ity of capsule 00:00: 00:00 [place] 00 :00 Medical Branch hydrOXYzine 2-0 2022- No Unive rs 25 mg 9-13 11-10 ity of capsule 00:00: 00:00 [place] 00 :00 Medical Branch lamoTRIgine 2022-0 Yes 25mg Take 25 mg Univers 25 mg 9-12 by mouth ity of tablet 00:00: every [place] 00 morning. Medical Branch lamoTRIgine 2022-0 Yes 25mg Take 25 mg [facility] 25 mg 9-12 by mouth ity of tablet 00:00: every [place] 00 morning. Medical Branch lamoTRIgine 2022-0 Yes 25mg Take 25 mg Univers 25 mg 9-12 by mouth ity of tablet 00:00: every [place] 00 morning. Medical Branch lamoTRIgine 2022-0 Yes 25mg Take 25 mg Univers 25 mg 9-12 by mouth ity of tablet 00:00: every [place] 00 morning. Medical Branch lamoTRIgine 2022-0 2022- No 25mg Take 25 mg Univers 25 mg 9-12 11-10 by mouth ity of tablet 00:00: 00:00 [facility] 00 :00 morning. Medical Branch lamoTRIgine 2021-0 2021- No 25mg Take 25 mg Univers 25 mg 9-12 11-10 by mouth ity of tablet 00:00: 00:00 every [place] 00 :00 morning. [facility] Branch lamoTRIgine 2021-0 2021- No 25mg Take 25 mg Univers 25 mg - 11-10 by mouth ity of tablet 00:00: 00:00 every [place] 00 :00 morning. [facility] Branch lamoTRIgine 2021-0 2021- No 25mg Take 25 mg Univers 25 mg - 11-10 by mouth ity of tablet 00:00: 00:00 every [place] 00 :00 morning. [facility] Branch lamoTRIgine 2021-0 2021- No 25mg Take 25 mg Univers 25 mg 11-18 11-10 by mouth ity of tablet 00:00: 00:00 every [place] 00 :00 morning. [facility] Branch lamoTRIgine 0 Yes 100mg Take 100 U nivers (LAMICTAL) 8-29 mg by ity of 100 mg 15:28: mouth at [place] tablet [address] Branch lamoTRIgine 0 Yes 100mg Take 100 U nivers (LAMICTAL) 8-29 mg by ity of 100 mg 15:28: mouth at [place] tablet [address] Branch lamoTRIgine 0 Yes 100mg Take 100 U nivers (LAMICTAL) 8-29 mg by ity of 100 mg 15:28: mouth at [place] tablet [address] lamoTRIgine 0 Yes 100mg Take 100 U nivers (LAMICTAL) 8-29 mg by ity of 100 mg 15:28: mouth at [place] tablet [address] Branch lamoTRIgine 0 Yes 100mg Take 100 U nivers (LAMICTAL) 8-29 mg by ity of 100 mg 15:28: mouth at [place] tablet [address] Branch lamoTRIgine 0 Yes 100mg Take 100 U nivers (LAMICTAL) 8-29 mg by ity of 100 mg 15:28: mouth at [place] tablet [address] Branch lamoTRIgine 0 Yes 100mg Take 100 U nivers (LAMICTAL) 8-29 mg by ity of 100 mg 15:28: mouth at [place] tablet [address] lamoTRIgine Yes 100mg Take 100 U nivers (LAMICTAL) 8-29 mg by ity of 100 mg 15:28: mouth at [place] tablet [address] lamoTRIgine Yes 100mg Take 100 U nivers (LAMICTAL) 8-29 mg by ity of 100 mg 15:28: mouth at [place] tablet [address] lamoTRIgine Yes 100mg Take 100 U nivers (LAMICTAL) 8-29 mg by ity of 100 mg 15:28: mouth at [place] tablet [address] lamoTRIgine Yes 100mg Take 100 U nivers (LAMICTAL) 8-29 mg by ity of 100 mg 15:28: mouth at [place] tablet [address] lamoTRIgine Yes 100mg Take 100 U nivers (LAMICTAL) 8-29 mg by ity of 100 mg 15:28: mouth at [place] tablet [address] lamoTRIgine Yes 100mg Take 100 U nivers (LAMICTAL) 8-29 mg by ity of 100 mg 15:28: mouth at [place] tablet [address] lamoTRIgine Yes Univer s (LAMICTAL) 6-15 ity of 100 mg 00:00: [place] tablet 00 [facility] lamoTRIgine 0 Yes Univer s (LAMICTAL) 6-15 ity of 100 mg 00:00: [place] tablet 00 [facility] lamoTRIgine 0 Yes Univer s (LAMICTAL) 6-15 ity of 100 mg 00:00: [place] tablet 00 [facility] lamoTRIgine 0 Yes Univer s (LAMICTAL) 6-15 ity of 100 mg 00:00: [place] tablet 00 [facility] lamoTRIgine 2021- No Unive rs (LAMICTAL) 6-15 11-10 ity of 100 mg 00:00: 00:00 [place] tablet 00 :00 [facility] lamoTRIgine 2021-0 2- No Unive rs (LAMICTAL) [...] 00 :00 Medical Branch busPIRone 2-0 Yes [id number] 18.75mg Take 2.5 Univers 7.5 mg 5-12 tablets by ity of tablet 00:00: mouth 3 [place] [facility] Medical times Branch daily. busPIRone 2021-0 Yes [id number] 18.75mg Take 2.5 Univers 7.5 mg 5-12 tablets by ity of tablet 00:00: mouth [place] [facility]) Medical times Branch daily. busPIRone 2021-0 Yes [id number] 18.75mg Take 2.5 Univers 7.5 mg 5-12 tablets by ity of tablet 00:00: mouth 3 [place] [facility] Medical times Branch daily. busPIRone 2-0 Yes [id number] 18.75mg Take 2.5 Univers 7.5 mg 5-12 tablets by ity of tablet 00:00: mouth 3 [place] [facility]) Medical times Branch daily. busPIRone 2-0 Yes [id number] 18.75mg Take 2.5 Univers 7.5 mg 5-12 tablets by ity of tablet 00:00: mouth 3 [place] [facility]) Medical times Branch daily. busPIRone 2-0 Yes [id number] 18.75mg Take 2.5 Univers 7.5 mg 5-12 tablets by ity of tablet 00:00: mouth 3 [place] [facility]) Medical times Branch daily. busPIRone 2-0 Yes [id number] 18.75mg Take 2.5 Univers 7.5 mg 5-12 tablets by ity of tablet 00:00: mouth (three) Medical times Branch daily. busPIRone 2022-0 Yes [id number] 18.75mg Take 2.5 Univers 7.5 mg 5-12 tablets by ity of tablet 00:00: mouth (three) Medical times Branch daily. busPIRone 2022-0 Yes [id number] 18.75mg Take 2.5 Univers 7.5 mg 5-12 tablets by ity of tablet 00:00: mouth (three) Medical times Branch daily. busPIRone 2022-0 Yes [id number] 18.75mg Take 2.5 Univers 7.5 mg 5-12 tablets by ity of tablet 00:00: mouth (three) Medical times Branch daily. busPIRone 2022-0 Yes [id number] 18.75mg Take 2.5 Univers 7.5 mg 5-12 tablets by ity of tablet 00:00: mouth (three) Medical times Branch daily. busPIRone 2022-0 Yes [id number] 18.75mg Take 2.5 Univers 7.5 mg 5-12 tablets by ity of tablet 00:00: mouth (three) Medical times Branch daily. busPIRone 2022-0 Yes [id number] 18.75mg Take 2.5 Univers 7.5 mg 5-12 tablets by ity of tablet 00:00: mouth (three) Medical times Branch daily. busPIRone 2022-0 Yes [id number] 18.75mg Take 2.5 Univers 7.5 mg 5-12 tablets by ity of tablet 00:00: mouth (three) Medical times Branch daily. busPIRone 2022-0 Yes [id number] 18.75mg Take 2.5 Univers 7.5 mg 5-12 tablets by ity of tablet 00:00: mouth (three) Medical times Branch daily. busPIRone 2022-0 Yes [id number] 18.75mg Take 2.5 Univers 7.5 mg 5-12 tablets by ity of tablet 00:00: mouth (three) Medical times Branch daily. busPIRone 2022-0 Yes [id number] 18.75mg Take 2.5 Univers 7.5 mg 5-12 tablets by ity of tablet 00:00: mouth (three) Medical times Branch daily. busPIRone 2022-0 Yes [id number] 18.75mg Take 2.5 Univers 7.5 mg 5-12 tablets by ity of tablet 00:00: mouth (three) Medical times Branch daily. busPIRone 2022-0 Yes [id number] 18.75mg Take 2.5 Univers 7.5 mg 5-12 tablets by ity of tablet 00:00: mouth (three) Medical times Branch daily. busPIRone 2022-0 Yes [id number] 18.75mg Take 2.5 Univers 7.5 mg 5-12 tablets by ity of tablet 00:00: mouth (three) Medical times Branch daily. busPIRone 2022-0 Yes [id number] 18.75mg Take 2.5 Univers 7.5 mg 5-12 tablets by ity of tablet 00:00: mouth (three) Medical times Branch daily. busPIRone 2022-0 Yes [id number] 18.75mg Take 2.5 Univers 7.5 mg 5-12 tablets by ity of tablet 00:00: mouth (three) Medical times Branch daily. busPIRone 2022-0 Yes [id number] 18.75mg Take 2.5 Univers 7.5 mg 5-12 tablets by ity of tablet 00:00: mouth (three) Medical times Branch daily. busPIRone 2022-0 Yes [id number] 18.75mg Take 2.5 Univers 7.5 mg 5-12 tablets by ity of tablet 00:00: mouth (three) Medical times Branch daily. busPIRone 2022-0 Yes [id number] 18.75mg Take 2.5 Univers 7.5 mg 5-12 tablets by ity of tablet 00:00: mouth (three) Medical times Branch daily. busPIRone 2022-0 Yes [id number] 18.75mg Take 2.5 Univers 7.5 mg 5-12 tablets by ity of tablet 00:00: mouth (three) Medical times Branch daily. busPIRone 2022-0 Yes [id number] 18.75mg Take 2.5 Univers 7.5 mg 5-12 tablets by ity of tablet 00:00: mouth () Medical times Branch daily. busPIRone 2022-0 Yes [id number] 18.75mg Take 2.5 Univers 7.5 mg 5-12 tablets by ity of tablet 00:00: mouth (three) Medical times Branch daily. busPIRone 2022-0 Yes [id number] 18.75mg Take 2.5 [facility] 7.5 mg 5-12 tablets by ity of tablet 00:00: [place] [facility] Medical times Branch daily. busPIRone 2022-0 Yes [id number] 18.75mg Take 2.5 Univers 7.5 mg 5-12 tablets by ity of tablet 00:00: [facility] Medical times Branch daily. busPIRone 2022-0 Yes [id number] 18.75mg Take 2.5 Univers 7.5 mg 5-12 tablets by ity of tablet 00:00: [facility] ([facility]) Medical times Branch daily. busPIRone 2022-0 Yes [id number] 18.75mg Take 2.5 Univers 7.5 mg 5-12 tablets by ity of tablet 00:00: [facility] (three) Medical times Branch daily. busPIRone 2022-0 Yes [id number] 18.75mg Take 2.5 Univers 7.5 mg 5-12 tablets by ity of tablet 00:00: [facility]) Medical times Branch daily. busPIRone 2022-0 Yes [id number] 18.75mg Take 2.5 Univers 7.5 mg 5-12 tablets by ity of tablet 00:00: mouth (three) Medical times Branch daily. busPIRone 2022-0 Yes [id number] 18.75mg Take 2.5 [facility] 7.5 mg 5-12 tablets by ity of tablet 00:00: mouth (three) Medical times Branch daily. busPIRone 2022-0 Yes [id number] 18.75mg Take 2.5 Univers 7.5 mg 5-12 tablets by ity of tablet 00:00: mouth (three) Medical times Branch daily. busPIRone 2022-0 Yes [id number] 18.75mg Take 2.5 Univers 7.5 mg 5-12 tablets by ity of tablet 00:00: mouth (three) Medical times Branch daily. busPIRone 2022-0 Yes [id number] 18.75mg Take 2.5 Univers 7.5 mg 5-12 tablets by ity of tablet 00:00: mouth (three) Medical times Branch daily. busPIRone 2-0 Yes [id number] 18.75mg Take 2.5 Univers 7.5 mg 5-12 tablets by ity of tablet 00:00: mouth (three) Medical times Branch daily. busPIRone 2-0 Yes [id number] 18.75mg Take 2.5 Univers 7.5 mg 5-12 tablets by ity of tablet 00:00: mouth (three) Medical times Branch daily. busPIRone 2-0 Yes [id number] 18.75mg Take 2.5 Univers 7.5 mg 5-12 tablets by ity of tablet 00:00: mouth (three) Medical times Branch daily. busPIRone 2-0 Yes [id number] 18.75mg Take 2.5 Univers 7.5 mg 5-12 tablets by ity of tablet 00:00: mouth (three) Medical times Branch daily. busPIRone 2-0 Yes [id number] 18.75mg Take 2.5 Univers 7.5 mg 5-12 tablets by ity of tablet 00:00: mouth (three) Medical times Branch daily. busPIRone 2-0 Yes [id number] 18.75mg Take 2.5 Univers 7.5 mg 5-12 tablets by ity of tablet 00:00: mouth (three) Medical times Branch daily. busPIRone 2022-0 Yes [id number] 18.75mg Take 2.5 Univers 7.5 mg 5-12 tablets by ity of tablet 00:00: mouth (three) Medical times Branch daily. busPIRone 2022-0 2022- No [id number] 18.75mg Take 2.5 Univers 7.5 mg 5-12 12-05 tablets by ity of tablet 00:00: 00:00 mouth 3 [place] 00 :00 (three) Medical times Branch daily. busPIRone 2021- No [id number] 18.75mg Take 2.5 Univers 7.5 mg 5-12 12-05 tablets by ity of tablet 00:00: 00:00 mouth 3 [place] 00 :00 (three) Medical times Branch daily. Yes [id number] 1{tbl} Take 1 U nivers multivitami 5-05 tablet by ity of n ( 00:00: mouth [place] VITAMIN) 00 daily. Medical tablet Branch Yes [id number] 1{tbl} Take 1 U nivers multivitami 5-05 tablet by ity of n ( 00:00: mouth [place] VITAMIN) 00 daily. Medical tablet Branch Yes [id number] 1{tbl} Take 1 U nivers multivitami 5-05 tablet by ity of n ( 00:00: mouth [place] VITAMIN) 00 daily. Medical tablet Branch Yes [id number] 1{tbl} Take 1 U nivers multivitami 5-05 tablet by ity of n ( 00:00: mouth [place] VITAMIN) 00 daily. Medical tablet Branch Yes [id number] 1{tbl} Take 1 U nivers multivitami 5-05 tablet by ity of n ( 00:00: mouth [place] VITAMIN) 00 daily. Medical tablet Branch Yes [id number] 1{tbl} Take 1 U nivers multivitami 5-05 tablet by ity of n ( 00:00: mouth [place] VITAMIN) 00 daily. Medical tablet Branch Yes [id number] 1{tbl} Take 1 U nivers multivitami 5-05 tablet by ity of n ( 00:00: mouth [place] VITAMIN) 00 daily. Medical tablet Branch Yes [id number] 1{tbl} Take 1 U nivers multivitami 5-05 tablet by ity of n ( 00:00: mouth [place] VITAMIN) 00 daily. Medical tablet Branch Yes [id number] 1{tbl} Take 1 U nivers multivitami 5-05 tablet by ity of n ( 00:00: mouth [place] VITAMIN) 00 daily. Medical tablet Branch Yes [id number] 1{tbl} Take 1 U nivers multivitami 5-05 tablet by ity of n ( 00:00: mouth [place] VITAMIN) 00 daily. Medical tablet Branch Yes [id number] 1{tbl} Take 1 U nivers multivitami 5-05 tablet by ity of n ( 00:00: mouth [place] VITAMIN) 00 daily. Medical tablet Branch Yes [id number] 1{tbl} Take 1 U nivers multivitami 5-05 tablet by ity of n ( 00:00: mouth [place] VITAMIN) 00 daily. Medical tablet Branch Yes [id number] 1{tbl} Take 1 U nivers multivitami 5-05 tablet by ity of n ( 00:00: mouth [place] VITAMIN) 00 daily. Medical tablet Branch Yes [id number] 1{tbl} Take 1 U nivers multivitami 5-05 tablet by ity of n ( 00:00: mouth [place] VITAMIN) 00 daily. Medical tablet Branch Yes [id number] 1{tbl} Take 1 U nivers multivitami 5-05 tablet by ity of n ( 00:00: mouth [place] VITAMIN) 00 daily. Medical tablet Branch Yes [id number] 1{tbl} Take 1 U nivers multivitami 5-05 tablet by ity of n ( 00:00: mouth [place] VITAMIN) 00 daily. Medical tablet Branch Yes [id number] 1{tbl} Take 1 U nivers multivitami 5-05 tablet by ity of n ( 00:00: mouth [place] VITAMIN) 00 daily. Medical tablet Branch Yes [id number] 1{tbl} Take 1 U nivers multivitami 5-05 tablet by ity of n ( 00:00: mouth [place] VITAMIN) 00 daily. Medical tablet Branch Yes [id number] 1{tbl} Take 1 U nivers multivitami 5-05 tablet by ity of n ( 00:00: mouth [place] VITAMIN) 00 daily. Medical tablet Branch Yes [id number] 1{tbl} Take 1 U nivers multivitami 5-05 tablet by ity of n ( 00:00: mouth [place] VITAMIN) 00 daily. Medical tablet Branch Yes [id number] 1{tbl} Take 1 U nivers multivitami 5-05 tablet by ity of n ( 00:00: mouth [place] VITAMIN) 00 daily. Medical tablet Branch Yes [id number] 1{tbl} Take 1 U nivers multivitami 5-05 tablet by ity of n ( 00:00: mouth [place] VITAMIN) 00 daily. Medical tablet Branch Yes [id number] 1{tbl} Take 1 U nivers multivitami 5-05 tablet by ity of n ( 00:00: mouth [place] VITAMIN) 00 daily. Medical tablet Branch Yes [id number] 1{tbl} Take 1 U nivers multivitami 5-05 tablet by ity of n ( 00:00: mouth [place] VITAMIN) 00 daily. Medical tablet Branch Yes [id number] 1{tbl} Take 1 U nivers multivitami 5-05 tablet by ity of n ( 00:00: mouth [place] VITAMIN) 00 daily. Medical tablet Branch Yes [id number] 1{tbl} Take 1 U nivers multivitami 5-05 tablet by ity of n ( 00:00: mouth [place] VITAMIN) 00 daily. Medical tablet Branch Yes [id number] 1{tbl} Take 1 U nivers multivitami 5-05 tablet by ity of n ( 00:00: mouth [place] VITAMIN) 00 daily. Medical tablet Branch Yes [id number] 1{tbl} Take 1 U nivers multivitami 5-05 tablet by ity of n ( 00:00: mouth [place] VITAMIN) 00 daily. Medical tablet Branch Yes [id number] 1{tbl} Take 1 U nivers multivitami 5-05 tablet by ity of n ( 00:00: mouth [place] VITAMIN) 00 daily. Medical tablet Branch Yes [id number] 1{tbl} Take 1 U nivers multivitami 5-05 tablet by ity of n ( 00:00: mouth [place] VITAMIN) 00 daily. Medical tablet Branch Yes [id number] 1{tbl} Take 1 [facility] nivers multivitami 5-05 tablet by ity of n ( 00:00: mouth [place] VITAMIN) 00 daily. Medical tablet Branch Yes [id number] 1{tbl} Take 1 [facility] multivitami 5-05 tablet by [facility] n ( 00:00: mouth [place] VITAMIN) 00 daily. Medical tablet Branch Yes [id number] 1{tbl} Take 1 [facility] multivitami 5-05 tablet by [facility] n ( 00:00: mouth [place] VITAMIN) 00 daily. Medical tablet Branch Yes [id number] 1{tbl} Take 1 [facility] multivitami 5-05 tablet by [facility] n ( 00:00: mouth [place] VITAMIN) 00 daily. Medical tablet Branch Yes [id number] 1{tbl} Take 1 [facility] multivitami 5-05 tablet by [facility] n ( 00:00: mouth [place] VITAMIN) 00 daily. Medical tablet Branch Yes [id number] 1{tbl} Take 1 [facility] mult[facility]itami 5-05 tablet by [facility] n ( 00:00: mouth [place] VITAMIN) 00 daily. Medical tablet Branch Yes [id number] 1{tbl} Take 1 [facility] mult[facility]itami 5-05 tablet by [facility] n ( 00:00: mouth [place] VITAMIN) 00 daily. Medical tablet Branch Yes [id number] 1{tbl} Take 1 [facility] multivitami 5-05 tablet by [facility] n ( 00:00: mouth [place] VITAMIN) 00 daily. Medical tablet Branch Yes [id number] 1{tbl} Take 1 [facility] multivitami 5-05 tablet by [facility] of n ( 00:00: mouth [place] VITAMIN) 00 daily. Medical tablet Branch Yes [id number] 1{tbl} Take 1 [facility] multivitami 5-05 tablet by [facility] n ( 00:00: mouth [place] VITAMIN) 00 daily. Medical tablet Branch Yes [id number] 1{tbl} Take 1 [facility] multivitami 5-05 tablet by [facility] n ( 00:00: mouth [place] VITAMIN) 00 daily. Medical tablet Branch Yes [id number] 1{tbl} Take 1 [facility] multivitami 5-05 tablet by [facility] of n ( 00:00: mouth [place] VITAMIN) 00 daily. Medical tablet Branch Yes [id number] 1{tbl} Take 1 [facility] nivers multivitami 5-05 tablet by [facility] of n ( 00:00: mouth [place] VITAMIN) 00 daily. Medical tablet Branch Yes [id number] 1{tbl} Take 1 [facility] nivers multivitami 5-05 tablet by [facility]y of n ( 00:00: mouth [place] VITAMIN) 00 daily. Medical tablet Branch Yes [id number] 1{tbl} Take 1 [facility] multivitami 5-05 tablet by [facility] of n ( 00:00: mouth [place] VITAMIN) 00 daily. Medical tablet Branch Yes [id number] 1{tbl} Take 1 [facility] multivitami 5-05 tablet by [facility] of n ( 00:00: mouth [place] VITAMIN) 00 daily. Medical tablet Branch Yes [id number] 1{tbl} Take 1 [facility] nivers multivitami 5-05 tablet by [facility] of n ( 00:00: mouth [place] VITAMIN) 00 daily. Medical tablet Branch 2021- No [id number] 1{tbl} Take 1 [facility] 5-05 12-07 tablet by [facility] ( [place] :[place] daily. [facility] tablet Branch lithium 600 2020- Yes bipolar 600mg QD Take [address] [facility] MG capsule 7-19 disorder in mg by L ukes 17:56: remission mouth Medical 35 every Center morning . busPIRone 2020-0 Yes 10mg Q.5D Take [address] [facility] (BUSPAR) 10 7-19 by mouth 2 [facility] tablet 17:56: (two) Medical 35 times Center daily. lithium 600 2020- Yes bipolar 600mg QD Take [facility] [...] ukes 00:00: remission mouth Medical 00 nightly. [place] lithium 300 2020-0 Yes bipolar 900mg QD Take [address] [facility] MG capsule 7-15 disorder in mg by L ukes 00:00: remission mouth Medical 00 nightly. [place] lithium 300 2020-0 Yes bipolar 900mg QD Take [address] [facility] MG capsule 7-15 disorder in mg by L ukes 00:00: remission mouth Medical 00 nightly. [place] lithium 300 2020-0 Yes bipolar 900mg QD Take [address] [facility] MG capsule 7-15 disorder in mg by L u[facility] 00:00: remission mouth Medical 00 nightly. [place] lithium 300 2020-0 Yes bipolar 900mg QD Take [address] [facility] MG capsule 7-15 disorder in mg by L ukes 00:00: remission mouth Medical 00 nightly. [place] lithium 300 2020-0 Yes bipolar 900mg QD Take [address] [facility] [address] MG capsule 7-15 disorder in mg by L ukes 00:00: remission mouth Medical 00 nightly. [place] lithium 300 0 Yes bipolar 900mg QD Take [address] [facility] [address] MG capsule 7-15 disorder in mg by L ukes 00:00: remission mouth Medical 00 nightly. [place] Immunizations Ordered Filled Immunization Date Status Comments [facility] e Immunization Name Name Rho (d) Immune 2022-02-12 Completed [facility] 00:00:00 [facility] [place] [facility] Rho (d) Immune 2022-02-12 Completed [facility] Gl[facility]ulin 00:00:00 [facility] [place] [facility] Rho (d) Immune 2022-02-12 Completed [facility] Globulin 00:00:00 [facility] [place] [facility] Rho (d) Immune 2022-02-12 Completed [facility] Globulin 00:00:00 [facility] [place] [facility] Rho (d) Immune 2022-02-12 Completed [facility] Globulin 00:00:00 [facility] [place] [facility] Rho (d) Immune 2022-02-12 Completed [facility] Globulin 00:00:00 [facility] [place] [facility] Rho (d) Immune 2022-02-12 Completed [facility] Globulin 00:00:00 [facility] Rho (d) Immune 2022-02-12 Completed [facility] Globulin 00:00:00 [facility] [place] [facility] Rho (d) Immune 2022-02-12 Completed [facility] Globulin 00:00:00 [facility] [place] [facility] Rho (d) Immune 2022-02-12 Completed [facility] Gl[facility] 00:00:00 [place] [facility] Rho (d) Immune 2022-02-12 Completed [facility] Globulin 00:00:00 [facility] Rho (d) Immune 2022-02-12 Completed [facility] Globulin 00:00:00 [facility] Rho (d) Immune 2022-02-12 Completed [facility] Globulin 00:00:00 [facility] Rho (d) Immune 2022-02-12 Completed [facility] Globulin 00:00:00 [facility] Rho (d) Immune 2022-02-12 Completed [facility] Globulin 00:00:00 [facility] Rho (d) Immune 2022-02-12 Completed [facility] Globulin 00:00:00 [facility] Rho (d) Immune 2022-02-12 Completed [facility] Globulin 00:00:00 [facility] Rho (d) Immune 2022-02-12 Completed [facility] Globulin 00:00:00 [facility] Rho (d) Immune 2022-02-12 Completed [facility] Globulin 00:00:00 [facility] Rho (d) Immune 2022-02-12 Completed [facility] Globulin 00:00:00 [facility] Rho (d) Immune 2022-02-12 Completed [facility] Globulin 00:00:00 [facility] Rho (d) Immune 2022-02-12 Completed [facility] Globulin 00:00:00 [facility] Rho (d) Immune 2022-02-12 Completed [facility] Globulin 00:00:00 [facility] Rho (d) Immune 2022-02-12 Completed [facility] Globulin 00:00:00 [facility] Rho (d) Immune 2022-02-12 Completed [facility] Globulin 00:00:00 [facility] Rho (d) Immune 2022-02-12 Completed [facility] Globulin 00:00:00 [facility] Rho (d) Immune 2022-02-12 Completed [facility] Globulin 00:00:00 [facility] Rho (d) Immune 2022-02-12 Completed [facility] Globulin 00:00:00 [facility] Rho (d) Immune 2022-02-12 Completed [facility] Globulin 00:00:00 [facility] Rho (d) Immune 2022-02-12 Completed [facility] Globulin 00:00:00 [facility] Rho (d) Immune 2022-02-12 Completed [facility] Globulin 00:00:00 [facility] Rho (d) Immune 2022-02-12 Completed [facility] Globulin 00:00:00 [facility] Rho (d) Immune 2022-02-12 Completed [facility] Globulin 00:00:00 [facility] Rho (d) Immune 2022-02-12 Completed [facility] Globulin 00:00:00 [facility] Rho (d) Immune 2022-02-12 Completed [facility] Globulin 00:00:00 [facility] Rho (d) Immune 2022-01-02 Completed [facility] Globulin 00:00:00 [facility] Rho (d) Immune 2022-01-02 Completed [facility] Globulin 00:00:00 [facility] Rho (d) Immune 2022-01-02 Completed [facility] Globulin 00:00:00 [facility] Rho (d) Immune 2022-01-02 Completed [facility] Globulin 00:00:00 [facility] Rho (d) Immune 2022-01-02 Completed [facility] Globulin 00:00:00 [facility] Rho (d) Immune 2022-01-02 Completed [facility] Globulin 00:00:00 [facility] Rho (d) Immune 2022-01-02 Completed [facility] Globulin 00:00:00 [facility] Rho (d) Immune 2022-01-02 Completed [facility] Globulin 00:00:00 [facility] Rho (d) Immune 2022-01-02 Completed [facility] Globulin 00:00:00 [facility] Rho (d) Immune 2022-01-02 Completed [facility] Globulin 00:00:00 [facility] Rho (d) Immune 2022-01-02 Completed [facility] Globulin 00:00:00 [facility] Rho (d) Immune 2022-01-02 Completed [facility] Globulin 00:00:00 [facility] Rho (d) Immune 2022-01-02 Completed [facility] Globulin 00:00:00 [facility] Rho (d) Immune 2022-01-02 Completed [facility] Globulin 00:00:00 [facility] Rho (d) Immune 2022-01-02 Completed [facility] Globulin 00:00:00 [facility] Rho (d) Immune 2022-01-02 Completed [facility] Globulin 00:00:00 [facility] Rho (d) Immune 2022-01-02 Completed [facility] Globulin 00:00:00 [facility] Rho (d) Immune 2022-01-02 Completed [facility] Globulin 00:00:00 [facility] Rho (d) Immune 2022-01-02 Completed [facility] Globulin 00:00:00 [facility] Rho (d) Immune 2022-01-02 Completed [facility] Globulin 00:00:00 [facility] Rho (d) Immune 2022-01-02 Completed [facility] Globulin 00:00:00 [facility] Rho (d) Immune 2022-01-02 Completed [facility] Globulin 00:00:00 [facility] Rho (d) Immune 2022-01-02 Completed [facility] Globulin 00:00:00 [facility] Rho (d) Immune 2022-01-02 Completed [facility] Globulin 00:00:00 [facility] Rho (d) Immune 2022-01-02 Completed [facility] Globulin 00:00:00 [facility] Rho (d) Immune 2022-01-02 Completed [facility] Globulin 00:00:00 [facility] Rho (d) Immune 2022-01-02 Completed [facility] Globulin 00:00:00 [facility] Rho (d) Immune 2022-01-02 Completed [facility] Globulin 00:00:00 [facility] Rho (d) Immune 2022-01-02 Completed [facility] Globulin 00:00:00 [facility] Rho (d) Immune 2022-01-02 Completed [facility] Globulin 00:00:00 [facility] Rho (d) Immune 2022-01-02 Completed [facility] Globulin 00:00:00 [facility] Rho (d) Immune 2022-01-02 Completed [facility] Globulin 00:00:00 [facility] Rho (d) Immune 2022-01-02 Completed [facility] Globulin 00:00:00 [facility] Rho (d) Immune 2022-01-02 Completed [facility] Globulin 00:00:00 [facility] Rho (d) Immune 2022-01-02 Completed [facility] Globulin 00:00:00 [facility] Rho (d) Immune 2022-01-02 Completed [facility] Globulin 00:00:00 [facility] Rho (d) Immune 2022-01-02 Completed [facility] Globulin 00:00:00 [facility] Rho (d) Immune 2022-01-02 Completed [facility] Globulin 00:00:00 [facility] Rho (d) Immune 2022-01-02 Completed [facility] Globulin 00:00:00 [facility] Rho (d) Immune 2022-01-02 Completed [facility] Globulin 00:00:00 [facility] Rho (d) Immune 2022-01-02 Completed [facility] Globulin 00:00:00 [facility] Rho (d) Immune 2022-01-02 Completed [facility] Globulin 00:00:00 [facility] Rho (d) Immune 2022-01-02 Completed [facility] Globulin 00:00:00 [facility] Rho (d) Immune 2022-01-02 Completed [facility] Globulin 00:00:00 [facility] Rho (d) Immune 2022-01-02 Completed [facility] Globulin 00:00:00 [facility] Rho (d) Immune 2022-01-02 Completed [facility] Globulin 00:00:00 [facility] Rho (d) Immune 2022-01-02 Completed [facility] Globulin 00:00:00 [facility] Rho (d) Immune 2022-01-02 Completed [facility] Globulin 00:00:00 [facility] Rho (d) Immune 2022-01-02 Completed [facility] Globulin 00:00:00 [facility] Rho (d) Immune 2022-01-02 Completed [facility] Globulin 00:00:00 [facility] Rho (d) Immune 2022-01-02 Completed [facility] Globulin 00:00:00 [facility] Rho (d) Immune 2022-01-02 Completed [facility] Globulin 00:00:00 [facility] Rho (d) Immune 2022-01-02 Completed [facility] Globulin 00:00:00 [facility] Rho (d) Immune 2022-01-02 Completed [facility] Globulin 00:00:00 [facility] Rho (d) Immune 2022-01-02 Completed [facility] Globulin 00:00:00 [facility] Rho (d) Immune 2022-01-02 Completed [facility] Globulin 00:00:00 [facility] Rho (d) Immune 2022-01-02 Completed [facility] Globulin 00:00:00 [facility] Rho (d) Immune 2022-01-02 Completed [facility] Globulin 00:00:00 [facility] Rho (d) Immune 2022-01-02 Completed [facility] Globulin 00:00:00 [facility] Rho (d) Immune 2022-01-02 Completed [facility] Globulin 00:00:00 [facility] Rho (d) Immune 2022-01-02 Completed [facility] Globulin 00:00:00 [facility] Rho (d) Immune 2022-01-02 Completed [facility] Globulin 00:00:00 [facility] [place] [facility] Rho (d) Immune 2022-01-02 Completed [facility] of Globulin 00:00:00 [facility] TDAP 2021-12-17 Completed University of 00:00:00 [facility] TDAP 2021-12-17 Completed University of 00:00:00 [facility] TDAP 2021-12-17 Completed University of 00:00:00 [facility] TDAP 2021-12-17 Completed University of 00:00:00 [facility] TDAP 2021-12-17 Completed University of 00:00:00 [facility] TDAP 2021-12-17 Completed University of 00:00:00 [facility] TDAP 2021-12-17 Completed University of 00:00:00 [facility] TDAP 2021-12-17 Completed University of 00:00:00 [facility] TDAP 2021-12-17 Completed University of 00:00:00 [facility] TDAP 2021-12-17 Completed University of 00:00:00 [facility] TDAP 2021-12-17 Completed University of 00:00:00 [facility] TDAP 2021-12-17 Completed University of 00:00:00 [facility] TDAP 2021-12-17 Completed University of 00:00:00 [facility] TDAP 2021-12-17 Completed University of 00:00:00 [facility] TDAP 2021-12-17 Completed University of 00:00:00 [facility] TDAP 2021-12-17 Completed University of 00:00:00 [facility] TDAP 2021-12-17 Completed University of 00:00:00 [facility] TDAP 2021-12-17 Completed University of 00:00:00 [facility] TDAP 2021-12-17 Completed University of 00:00:00 [facility] TDAP 2021-12-17 Completed University of 00:00:00 [facility] TDAP 2021-12-17 Completed University of 00:00:00 [facility] TDAP 2021-12-17 Completed University of 00:00:00 [facility] TDAP 2021-12-17 Completed University of 00:00:00 [facility] TDAP 2021-12-17 Completed University of 00:00:00 [facility] TDAP 2021-12-17 Completed University of 00:00:00 [facility] [place] [facility] TDAP 2021-12-17 Completed University of 00:00:00 [facility] TDAP 2021-12-17 Completed [facility] of 00:00:00 [facility] TDAP 2021-12-17 Completed University of 00:00:00 [facility] TDAP 2021-12-17 Completed University of 00:00:00 [facility] TDAP 2021-12-17 Completed [facility] of 00:00:00 [facility] TDAP 2021-12-17 Completed University of 00:00:00 [facility] TDAP 2021-12-17 Completed [facility] of 00:00:00 [facility] TDAP 2021-12-17 Completed [facility] of 00:00:00 [facility] TDAP 2021-12-17 Completed [facility] of 00:00:00 [facility] TDAP 2021-12-17 Completed University of 00:00:00 [facility] TDAP 2021-12-17 Completed University of 00:00:00 [facility] TDAP 2021-12-17 Completed [facility] of 00:00:00 [facility] TDAP 2021-12-17 Completed [facility] of 00:00:00 [facility] TDAP 2021-12-17 Completed [facility] of 00:00:00 [facility] TDAP 2021-12-17 Completed University of 00:00:00 [facility] TDAP 2021-12-17 Completed University of 00:00:00 [facility] TDAP 2021-12-17 Completed University of 00:00:00 [facility] TDAP 2021-12-17 Completed [facility] of 00:00:00 [facility] TDAP 2021-12-17 Completed [facility] of 00:00:00 [facility] TDAP 2021-12-17 Completed University of 00:00:00 [facility] TDAP 2021-12-17 Completed [facility] of 00:00:00 [facility] TDAP 2021-12-17 Completed [facility] of 00:00:00 [facility] TDAP 2021-12-17 Completed [facility] of 00:00:00 [facility] TDAP 2021-12-17 Completed [facility] of 00:00:00 [facility] TDAP 2021-12-17 Completed [facility] of 00:00:00 [facility] TDAP 2021-12-17 Completed [facility] of 00:00:00 [facility] TDAP 2021-12-17 Completed University of 00:00:00 [facility] [place] [facility] TDAP 2021-12-17 Completed University of 00:00:00 [facility] TDAP 2021-12-17 Completed [facility] of 00:00:00 [facility] TDAP 2021-12-17 Completed University of 00:00:00 [facility] TDAP 2021-12-17 Completed University of 00:00:00 [facility] [place] [facility] TDAP 2021-12-17 Completed University of 00:00:00 [facility] TDAP 2021-12-17 Completed [facility] of 00:00:00 [facility] TDAP 2021-12-17 Completed University of 00:00:00 [facility] [place] [facility] TDAP 2021-12-17 Completed University of 00:00:00 [facility] TDAP 2021-12-17 Completed [facility] of 00:00:00 [facility] TDAP 2021-12-17 Completed University of 00:00:00 [facility] TDAP 2021-12-17 Completed University of 00:00:00 [facility] [place] [facility] TDAP 2021-12-17 Completed University of 00:00:00 [facility] TDAP 2021-12-17 Completed University of 00:00:00 [facility] [place] [facility] TDAP 2021-12-17 Completed University of 00:00:00 [facility] [place] [facility] SARS-COV-2 COVID-19 2021-02-05 Completed Unive rsity of PFIZER VACCINE 00:00:00 [facility] SARS-COV-2 COVID-19 2021-02-05 Completed Unive rsity of PFIZER VACCINE 00:00:00 [facility] SARS-COV-2 COVID-19 2021-02-05 Completed Unive rsity of PFIZER VACCINE 00:00:00 [facility] SARS-COV-2 COVID-19 2021-02-05 Completed Unive rsity of PFIZER VACCINE 00:00:00 [facility] SARS-COV-2 COVID-19 2021-02-05 Completed Unive rsity of PFIZER VACCINE 00:00:00 [facility] SARS-COV-2 COVID-19 2021-02-05 Completed Unive rsity of PFIZER VACCINE 00:00:00 [facility] SARS-COV-2 COVID-19 2021-02-05 Completed Unive rsity of PFIZER VACCINE 00:00:00 [place] [facility] SARS-COV-2 COVID-19 2021-02-05 Completed Unive rsity of PFIZER VACCINE 00:00:00 [facility] SARS-COV-2 COVID-19 2021-02-05 Completed Unive rsity of PFIZER VACCINE 00:00:00 [facility] SARS-COV-2 COVID-19 2021-02-05 Completed Unive rsity of PFIZER VACCINE 00:00:00 [facility] SARS-COV-2 COVID-19 2021-02-05 Completed Unive rsity of PFIZER VACCINE 00:00:00 [facility] SARS-COV-2 COVID-19 2021-02-05 Completed Unive rsity of PFIZER VACCINE 00:00:00 [facility] SARS-COV-2 COVID-19 2021-02-05 Completed Unive rsity of PFIZER VACCINE 00:00:00 [facility] SARS-COV-2 COVID-19 2021-02-05 Completed Unive rsity of PFIZER VACCINE 00:00:00 [facility] SARS-COV-2 COVID-19 2021-02-05 Completed Unive rsity of PFIZER VACCINE 00:00:00 [facility] SARS-COV-2 COVID-19 2021-01-15 Completed Unive rsity of PFIZER VACCINE 00:00:00 [facility] SARS-COV-2 COVID-19 2021-01-15 Completed Unive rsity of PFIZER VACCINE 00:00:00 [facility] SARS-COV-2 COVID-19 2021-01-15 Completed Unive rsity of PFIZER VACCINE 00:00:00 [facility] SARS-COV-2 COVID-19 2021-01-15 Completed Unive rsity of PFIZER VACCINE 00:00:00 [facility] SARS-COV-2 COVID-19 2021-01-15 Completed Unive rsity of PFIZER VACCINE 00:00:00 [facility] SARS-COV-2 COVID-19 2021-01-15 Completed [facility] PFIZER VACCINE 00:00:00 [facility] SARS-COV-2 COVID-19 2021-01-15 Completed [facility] PFIZER VACCINE 00:00:00 [facility] SARS-COV-2 COVID-19 2021-01-15 Completed [facility] of PFIZER VACCINE 00:00:00 [facility] SARS-COV-2 COVID-19 2021-01-15 Completed [facility] PFIZER VACCINE 00:00:00 [facility] SARS-COV-2 COVID-19 2021-01-15 Completed [facility] PFIZER VACCINE 00:00:00 [facility] SARS-COV-2 COVID-19 2021-01-15 Completed [facility] PFIZER VACCINE 00:00:00 [facility] SARS-COV-2 COVID-19 2021-01-15 Completed [facility] PFIZER VACCINE 00:00:00 [facility] SARS-COV-2 COVID-19 2021-01-15 Completed [facility] PFIZER VACCINE 00:00:00 [facility] SARS-COV-2 COVID-19 2021-01-15 Completed [facility] of PFIZER VACCINE 00:00:00 [facility] SARS-COV-2 COVID-19 2021-01-15 Completed [facility] PFIZER VACCINE 00:00:00 [facility] HPV9 2019-12-30 Completed [facility] 00:00:00 [facility] HPV9 2019-12-30 Completed University of 00:00:00 [facility] HPV9 2019-12-30 Completed [facility] of 00:00:00 [facility] HPV9 2019-12-30 Completed [facility] of 00:00:00 [facility] HPV9 2019-12-30 Completed [facility] of 00:00:00 [facility] HPV9 2019-12-30 Completed [facility] of 00:00:00 [facility] HPV9 2019-12-30 Completed [facility] of 00:00:00 [facility] HPV9 2019-12-30 Completed [facility] of 00:00:00 [facility] HPV9 2019-12-30 Completed [facility] of 00:00:00 [facility] HPV9 2019-12-30 Completed [facility] of 00:00:00 [facility] HPV9 2019-12-30 Completed [facility] of 00:00:00 [facility] HPV9 2019-12-30 Completed [facility] of 00:00:00 [facility] HPV9 2019-12-30 Completed [facility] of 00:00:00 [facility] HPV9 2019-12-30 Completed [facility] of 00:00:00 [facility] HPV9 2019-12-30 Completed University of 00:00:00 [...] HPV9 2019-05-17 Completed [facility] 00:00:00 [facility] TDAP (ADACEL) 2018-02-15 Completed University of [...] Completed University of VACCINE 00:00:00 [facility] TDAP (ADACEL) 2018-02-15 Completed [facility] of VACCINE 00:00:00 [facility] TDAP (ADACEL) 2018-02-15 Completed [facility] VACCINE 00:00:00 [facility] TDAP (ADACEL) 2018-02-15 Completed [facility] VACCINE 00:00:00 [facility] TDAP (ADACEL) 2018-02-15 Completed [facility] VACCINE 00:00:00 [facility] TDAP (ADACEL) 2018-02-15 Completed [facility] of VACCINE 00:00:00 [facility] TDAP (ADACEL) 2018-02-15 Completed [facility] of VACCINE 00:00:00 [facility] TDAP (ADACEL) 2018-02-15 Completed [facility] of [...] Completed [facility] of VACCINE 00:00:00 [facility] TDAP (ADACEL) 2018-02-15 Completed [facility] of VACCINE 00:00:00 [facility] TDAP (ADACEL) 2018-02-15 Completed [facility] of VACCINE 00:00:00 [facility] TDAP (ADACEL) 2018-02-15 Completed [facility] of VACCINE 00:00:00 [facility] TDAP (ADACEL) 2018-02-15 Completed [facility] VACCINE 00:00:00 [facility] TDAP (ADACEL) 2018-02-15 Completed [facility] of VACCINE 00:00:00 [facility] TDAP (ADACEL) 2018-02-15 Completed [facility] of VACCINE 00:00:00 [facility] TDAP (ADACEL) 2018-02-15 Completed [facility] of VACCINE 00:00:00 [facility] TDAP (ADACEL) 2018-02-15 Completed [facility] of VACCINE 00:00:00 [facility] TDAP (ADACEL) 2018-02-15 Completed [facility] of VACCINE 00:00:00 [facility] TDAP (ADACEL) 2018-02-15 Completed [facility] of VACCINE 00:00:00 [facility] TDAP (ADACEL) 2018-02-15 Completed [facility] of VACCINE 00:00:00 [facility] TDAP (ADACEL) 2018-02-15 Completed [facility] of VACCINE 00:00:00 [facility] TDAP (ADACEL) 2018-02-15 Completed [facility] of VACCINE 00:00:00 [facility] TDAP (ADACEL) 2018-02-15 Completed [facility] of VACCINE 00:00:00 [facility] TDAP (ADACEL) 2018-02-15 Completed [facility] of VACCINE 00:00:00 [facility] TDAP (ADACEL) 2018-02-15 Completed [facility] of VACCINE 00:00:00 [facility] TDAP (ADACEL) 2018-02-15 Completed [facility] of VACCINE 00:00:00 [facility] TDAP (ADACEL) 2018-02-15 Completed [facility] VACCINE 00:00:00 [facility] TDAP (ADACEL) 2018-02-15 Completed [facility] of VACCINE 00:00:00 [facility] TDAP (ADACEL) 2018-02-15 Completed [facility] of VACCINE 00:00:00 [facility] TDAP (ADACEL) 2018-02-15 Completed [facility] of VACCINE 00:00:00 [facility] TDAP (ADACEL) 2018-02-15 Completed [facility] of VACCINE 00:00:00 [facility] TDAP (ADACEL) 2018-02-15 Completed [facility] of VACCINE 00:00:00 [facility] TDAP (ADACEL) 2018-02-15 Completed [facility] VACCINE 00:00:00 [facility] TDAP (ADACEL) 2018-02-15 Completed [facility] of VACCINE 00:00:00 [facility] TDAP (ADACEL) 2018-02-15 Completed [facility] of VACCINE 00:00:00 [facility] TDAP (ADACEL) 2018-02-15 Completed [facility] of VACCINE 00:00:00 [facility] TDAP (ADACEL) 2018-02-15 Completed [facility] of VACCINE 00:00:00 [facility] TDAP (ADACEL) 2018-02-15 Completed [facility] of VACCINE 00:00:00 [facility] TDAP (ADACEL) 2018-02-15 Completed [facility] of VACCINE 00:00:00 [facility] TDAP (ADACEL) 2018-02-15 Completed [facility] of VACCINE 00:00:00 [facility] TDAP (ADACEL) 2018-02-15 Completed [facility] of VACCINE 00:00:00 [facility] TDAP (ADACEL) 2018-02-15 Completed [facility] of VACCINE 00:00:00 [facility] TDAP (ADACEL) 2018-02-15 Completed [facility] of VACCINE 00:00:00 [facility] TDAP (ADACEL) 2018-02-15 Completed [facility] of VACCINE 00:00:00 [facility] TDAP (ADACEL) 2018-02-15 Completed [facility] of VACCINE 00:00:00 [facility] TDAP (ADACEL) 2018-02-15 Completed [facility] of VACCINE 00:00:00 [facility] TDAP (ADACEL) 2018-02-15 Completed [facility] of VACCINE 00:00:00 [facility] TDAP (ADACEL) 2018-02-15 Completed [facility] of VACCINE 00:00:00 [facility] TDAP (ADACEL) 2018-02-15 Completed [facility] VACCINE 00:00:00 [facility] TDAP (ADACEL) 2018-02-15 Completed [facility] of VACCINE 00:00:00 [facility] TDAP (ADACEL) 2018-02-15 Completed [facility] of VACCINE 00:00:00 [facility] TDAP (ADACEL) 2018-02-15 Completed [facility] of VACCINE 00:00:00 [facility] TDAP (ADACEL) 2018-02-15 Completed [facility] of VACCINE 00:00:00 [facility] TDAP (ADACEL) 2018-02-15 Completed [facility] of VACCINE 00:00:00 [facility] TDAP (ADACEL) 2018-02-15 Completed [facility] of VACCINE 00:00:00 [facility] TDAP (ADACEL) 2018-02-15 Completed [facility] of VACCINE 00:00:00 [facility] TDAP (ADACEL) 2018-02-15 Completed [facility] of VACCINE 00:00:00 [facility] TDAP (ADACEL) 2018-02-15 Completed [facility] of VACCINE 00:00:00 [facility] Influenza Virus 2017-12-14 Completed Universit y of Vaccine [facility] IM 3+ 00:00:00 [facility] Influenza Virus 2017-12-14 Completed [facility]it y of Vaccine [facility] IM 3+ 00:00:00 [facility] Influenza Virus 2017-12-14 Completed [facility]it y of Vaccine [facility] IM 3+ 00:00:00 [facility] Influenza Virus 2017-12-14 Completed [facility] y of Vaccine [facility] IM 3+ 00:00:00 [facility] Influenza Virus 2017-12-14 Completed [facility] y of Vaccine [facility] IM 3+ 00:00:00 [facility] Influenza Virus 2017-12-14 Completed [facility] y of Vaccine [facility] IM 3+ 00:00:00 [facility] Influenza Virus 2017-12-14 Completed [facility] y of Vaccine [facility] IM 3+ 00:00:00 [facility] Influenza Virus 2017-12-14 Completed [facility] y of Vaccine [facility] IM 3+ 00:00:00 [facility] Influenza Virus 2017-12-14 Completed [facility] y of Vaccine [facility] IM 3+ 00:00:00 [facility] Influenza Virus 2017-12-14 Completed [facility] y of Vaccine [facility] IM 3+ 00:00:00 [facility] Influenza Virus 2017-12-14 Completed [facility] y of Vaccine [facility] IM 3+ 00:00:00 [facility] Influenza Virus 2017-12-14 Completed [facility] y of Vaccine Quad IM 3+ 00:00:00 [facility] Influenza Virus 2017-12-14 Completed [facility] y of Vaccine [facility] IM 3+ 00:00:00 [facility] Influenza Virus 2017-12-14 Completed [facility] y of Vaccine [facility] IM 3+ 00:00:00 [facility] Influenza Virus 2017-12-14 Completed [facility] y of Vaccine [facility] IM 3+ 00:00:00 [facility] Influenza Virus 2017-12-14 Completed [facility] y of Vaccine [facility] IM 3+ 00:00:00 [facility] Influenza Virus 2017-12-14 Completed [facility] y of Vaccine [facility] IM 3+ 00:00:00 [facility] Influenza Virus 2017-12-14 Completed [facility] y of Vaccine Quad IM 3+ 00:00:00 [facility] Influenza Virus 2017-12-14 Completed [facility] y of Vaccine Quad IM 3+ 00:00:00 [facility] Influenza Virus 2017-12-14 Completed [facility] y of Vaccine [facility] IM 3+ 00:00:00 [facility] Influenza Virus 2017-12-14 Completed [facility] y of Vaccine [facility] IM 3+ 00:00:00 [facility] Influenza Virus 2017-12-14 Completed [facility] y of Vaccine [facility] IM 3+ 00:00:00 [facility] Influenza Virus 2017-12-14 Completed [facility] of Vaccine [facility] IM 3+ 00:00:00 [facility] Influenza Virus 2017-12-14 Completed [facility] y of Vaccine [facility] IM 3+ 00:00:00 [facility] Influenza Virus 2017-12-14 Completed [facility] of Vaccine [facility] IM 3+ 00:00:00 [facility] Influenza Virus 2017-12-14 Completed [facility] y of Vaccine [facility] IM 3+ 00:00:00 [facility] Influenza Virus 2017-12-14 Completed [facility] y of Vaccine [facility] IM 3+ 00:00:00 [facility] Influenza Virus 2017-12-14 Completed [facility] of Vaccine [facility] IM 3+ 00:00:00 [facility] Influenza Virus 2017-12-14 Completed [facility] of Vaccine [facility] IM 3+ 00:00:00 [facility] Influenza Virus 2017-12-14 Completed [facility] y of Vaccine [facility] IM 3+ 00:00:00 [facility] Influenza Virus 2017-12-14 Completed [facility] y of Vaccine [facility] IM 3+ 00:00:00 [facility] Influenza Virus 2017-12-14 Completed [facility] y of Vaccine [facility] IM 3+ 00:00:00 [facility] Influenza Virus 2017-12-14 Completed [facility] y of Vaccine [facility] IM 3+ 00:00:00 [facility] Influenza Virus 2017-12-14 Completed [facility] y of [facility]ine [facility] IM 3+ 00:00:00 [facility] Influenza Virus 2017-12-14 Completed [facility] y of Vaccine [facility] IM 3+ 00:00:00 [facility] Influenza Virus 2017-12-14 Completed [facility] y of Vaccine [facility] IM 3+ 00:00:00 [facility] Influenza Virus 2017-12-14 Completed [facility] y of Vaccine Quad IM 3+ 00:00:00 [facility] Influenza Virus 2017-12-14 Completed [facility] y of Vaccine [facility] IM 3+ 00:00:00 [facility] Influenza Virus 2017-12-14 Completed [facility] y of Vaccine [facility] IM 3+ 00:00:00 [facility] Influenza Virus 2017-12-14 Completed [facility] y of Vaccine [facility] IM 3+ 00:00:00 [facility] Influenza Virus 2017-12-14 Completed [facility] y of Vaccine [facility] IM 3+ 00:00:00 [facility] Influenza Virus 2017-12-14 Completed [facility] y of Vaccine [facility] IM 3+ 00:00:00 [facility] Influenza Virus 2017-12-14 Completed [facility] y of Vaccine Quad IM 3+ 00:00:00 [facility] Influenza Virus 2017-12-14 Completed [facility] y of Vaccine [facility] IM 3+ 00:00:00 [facility] Influenza Virus 2017-12-14 Completed [facility] y of Vaccine [facility] IM 3+ 00:00:00 [facility] Influenza Virus 2017-12-14 Completed [facility] y of Vaccine [facility] IM 3+ 00:00:00 [facility] Influenza Virus 2017-12-14 Completed [facility] y of Vaccine Quad IM 3+ 00:00:00 [facility] Influenza Virus 2017-12-14 Completed [facility] y of Vaccine Quad IM 3+ 00:00:00 [facility] Influenza Virus 2017-12-14 Completed [facility] y of Vaccine Quad IM 3+ 00:00:00 [facility] Influenza Virus 2017-12-14 Completed [facility] y of Vaccine [facility] IM 3+ 00:00:00 [facility] Influenza Virus 2017-12-14 Completed [facility] y of Vaccine [facility] IM 3+ 00:00:00 [facility] Influenza Virus 2017-12-14 Completed [facility] y of Vaccine [facility] IM 3+ 00:00:00 [facility] Influenza Virus 2017-12-14 Completed [facility] y of Vaccine Quad IM 3+ 00:00:00 [facility] Influenza Virus 2017-12-14 Completed [facility] y of Vaccine Quad IM 3+ 00:00:00 [facility] Influenza Virus 2017-12-14 Completed [facility] y of Vaccine Quad IM 3+ 00:00:00 [facility] Influenza Virus 2017-12-14 Completed [facility] y of Vaccine Quad IM 3+ 00:00:00 [facility] Influenza Virus 2017-12-14 Completed [facility] y of Vaccine Quad IM 3+ 00:00:00 [facility] Influenza Virus 2017-12-14 Completed [facility] y of Vaccine Quad IM 3+ 00:00:00 [facility] Influenza Virus 2017-12-14 Completed [facility] y of Vaccine Quad IM 3+ 00:00:00 [facility] Influenza Virus 2017-12-14 Completed [facility] y of Vaccine Quad IM 3+ 00:00:00 [facility] Influenza Virus 2017-12-14 Completed [facility] y of Vaccine Quad IM 3+ 00:00:00 [facility] Influenza Virus 2017-12-14 Completed [facility] y of Vaccine [facility] IM 3+ 00:00:00 [facility] Influenza Virus 2017-12-14 Completed [facility] y of Vaccine [facility] IM 3+ 00:00:00 [facility] Influenza Virus 2017-12-14 Completed [facility] y of Vaccine Quad IM 3+ 00:00:00 [facility] Influenza Virus 2017-12-14 Completed [facility] y of Vaccine Quad IM 3+ 00:00:00 [facility] Influenza Virus 2017-12-14 Completed [facility] y of Vaccine [facility] IM 3+ 00:00:00 [facility] Influenza Virus 2017-12-14 Completed [facility] y of Vaccine Quad IM 3+ 00:00:00 [facility] Influenza Virus 2017-12-14 Completed [facility] y of Vaccine Quad IM 3+ 00:00:00 [facility] Influenza Virus 2017-12-14 Completed [facility] y of Vaccine Quad IM 3+ 00:00:00 [facility] Influenza Virus 2017-12-14 Completed [facility] y of Vaccine Quad IM 3+ 00:00:00 [facility] Influenza Virus 2017-12-14 Completed [facility] y of Vaccine Quad IM 3+ 00:00:00 [facility] Influenza Virus 2017-12-14 Completed [facility] y of Vaccine [facility] IM 3+ 00:00:00 [facility] Influenza Virus 2017-12-14 Completed [facility] y of Vaccine Quad IM 3+ 00:00:00 [facility] Influenza Virus 2017-12-14 Completed [facility] y of Vaccine Quad IM 3+ 00:00:00 [facility] Influenza Virus 2017-12-14 Completed [facility] y of Vaccine Quad IM 3+ 00:00:00 [facility] Influenza Virus 2017-12-14 Completed [facility] y of Vaccine Quad IM 3+ 00:00:00 [facility] Influenza Virus 2017-12-14 Completed [facility] y of Vaccine Quad IM 3+ 00:00:00 [facility] Influenza Virus 2017-12-14 Completed [facility] y of Vaccine Quad IM 3+ 00:00:00 [facility] Influenza Virus 2017-12-14 Completed [facility] y of Vaccine Quad IM 3+ 00:00:00 [facility] Influenza Virus 2017-12-14 Completed [facility] y of Vaccine Quad IM 3+ 00:00:00 [facility] Influenza Virus 2017-12-14 Completed [facility] y of Vaccine Quad IM 3+ 00:00:00 [facility] Influenza Virus 2017-12-14 Completed [facility] y of Vaccine [facility] IM 3+ 00:00:00 [facility] Influenza Virus 2017-12-14 Completed [facility] y of [facility] IM 3+ 00:00:00 [facility] Varicella 2016-05-24 Completed University of (varivax)(chicken 00:00:00 [...] 00:00:00 [facility] TDAP 2016-04-03 Completed University of 00:00:00 [facility] TDAP 2016-04-03 Completed University of 00:00:00 [facility] TDAP 2016-04-03 Completed University of 00:00:00 [facility] TDAP 2016-04-03 Completed University of 00:00:00 [facility] TDAP 2016-04-03 Completed University of 00:00:00 [facility] TDAP 2016-04-03 Completed University of 00:00:00 [facility] TDAP 2016-04-03 Completed University of 00:00:00 [facility] TDAP 2016-04-03 Completed [facility] of 00:00:00 [facility] TDAP 2016-04-03 Completed University of 00:00:00 [facility] TDAP 2016-04-03 Completed [facility] of 00:00:00 [facility] TDAP 2016-04-03 Completed [facility] of 00:00:00 [facility] TDAP 2016-04-03 Completed University of 00:00:00 [facility] TDAP 2016-04-03 Completed [facility] of 00:00:00 [facility] TDAP 2016-04-03 Completed University of 00:00:00 [facility] TDAP 2016-04-03 Completed [facility] of 00:00:00 [facility] TDAP 2016-04-03 Completed University of 00:00:00 [facility] TDAP 2016-04-03 Completed [facility] of 00:00:00 [facility] TDAP 2016-04-03 Completed [facility] of 00:00:00 [facility] TDAP 2016-04-03 Completed University of 00:00:00 [facility] TDAP 2016-04-03 Completed [facility] of 00:00:00 [facility] TDAP 2016-04-03 Completed [facility] of 00:00:00 [facility] TDAP 2016-04-03 Completed [facility] of 00:00:00 [facility] TDAP 2016-04-03 Completed [facility] of 00:00:00 [facility] TDAP 2016-04-03 Completed [facility] of 00:00:00 [facility] TDAP 2016-04-03 Completed [facility] of 00:00:00 [facility] TDAP 2016-04-03 Completed [facility] of 00:00:00 [facility] TDAP 2016-04-03 Completed [facility] of 00:00:00 [facility] TDAP 2016-04-03 Completed [facility] of 00:00:00 [facility] TDAP 2016-04-03 Completed [facility] of 00:00:00 [facility] TDAP 2016-04-03 Completed [facility] of 00:00:00 [facility] TDAP 2016-04-03 Completed [facility] of 00:00:00 [facility] TDAP 2016-04-03 Completed University of 00:00:00 [facility] TDAP 2016-04-03 Completed [facility] of 00:00:00 [facility] TDAP 2016-04-03 Completed [facility] of 00:00:00 [facility] TDAP 2016-04-03 Completed [facility] of 00:00:00 [facility] TDAP 2016-04-03 Completed [facility] of 00:00:00 [facility] TDAP 2016-04-03 Completed [facility] of 00:00:00 [facility] TDAP 2016-04-03 Completed [facility] of 00:00:00 [facility] TDAP 2016-04-03 Completed [facility] of 00:00:00 [facility] TDAP 2016-04-03 Completed [facility] of 00:00:00 [facility] TDAP 2016-04-03 Completed [facility] of 00:00:00 [facility] TDAP 2016-04-03 Completed [facility] of 00:00:00 [facility] TDAP 2016-04-03 Completed [facility] of 00:00:00 [facility] TDAP 2016-04-03 Completed [facility] of 00:00:00 [facility] TDAP 2016-04-03 Completed [facility] of 00:00:00 [facility] TDAP 2016-04-03 Completed [facility] of 00:00:00 [facility] TDAP 2016-04-03 Completed [facility] of 00:00:00 [facility] TDAP 2016-04-03 Completed [facility] of 00:00:00 [facility] TDAP 2016-04-03 Completed [facility] of 00:00:00 [facility] TDAP 2016-04-03 Completed [facility] of 00:00:00 [facility] TDAP 2016-04-03 Completed [facility] 00:00:00 [facility] TDAP 2016-04-03 Completed [facility] 00:00:00 [facility] TDAP 2016-04-03 Completed [facility] of 00:00:00 [facility] TDAP 2016-04-03 Completed [facility] of 00:00:00 [facility] TDAP 2016-04-03 Completed [facility] of 00:00:00 [facility] TDAP 2016-04-03 Completed [facility] of 00:00:00 [facility] TDAP 2016-04-03 Completed [facility] 00:00:00 [facility] TDAP 2016-04-03 Completed [facility] 00:[facility]:00 [facility] [facility] TDAP 2016-04-03 Completed [facility] 00:00:00 [facility] TDAP 2016-04-03 Completed [facility] 00:00:00 [facility] TDAP 2016-04-03 Completed [facility] 00[facility]00:00 [facility] TDAP 2016-04-03 Completed [facility] 00:00:00 [facility] TDAP 2016-04-03 Completed [facility] 00:00:00 [facility] TDAP 2016-04-03 Completed [facility] 00:00:00 [facility] TDAP 2016-04-03 Completed [facility] 00:00:00 [facility] TDAP 2016-04-03 Completed [facility] 00:00:00 [facility] TDAP 2016-04-03 Completed [facility] 00:00:00 [facility] TDAP 2016-04-03 Completed [facility] 00:00:00 [facility] TDAP 2016-04-03 Completed [facility] 00:00:00 [facility] TDAP 2016-04-03 Completed [facility] 00:00:00 [facility] TDAP 2016-04-03 Completed [facility] 00:00:00 [facility] TDAP 2016-04-03 Completed [facility] 00:00:00 [facility] TDAP 2016-04-03 Completed [facility] 00:00:00 [facility] TDAP 2016-04-03 Completed [facility] 00:00:00 [facility] TDAP 2016-04-03 Completed [facility] 00:00:00 [facility] TDAP 2016-04-03 Completed [facility] 00:00:00 [facility] TDAP 2016-04-03 Completed [facility] 00:00:00 [facility] TDAP 2016-04-03 Completed [facility] 00:00:00 [facility] TDAP 2016-04-03 Completed [facility] 00:00:00 [facility] TDAP 2016-04-03 Completed [facility] 00:00:00 [facility] TDAP 2016-04-03 Completed [facility] 00:00:00 [facility] TDAP 2016-04-03 Completed [facility] 00:00:00 [facility] Rho (d) Immune 2016-03-27 Completed University of Globulin 00:00:00 [facility] Rho (d) Immune 2016-03-27 Completed [facility] Globulin 00:00:00 [facility] Rho (d) Immune 2016-03-27 Completed [facility] Globulin 00:00:00 [facility] Rho (d) Immune 2016-03-27 Completed [facility] Globulin 00:00:00 [facility] Rho (d) Immune 2016-03-27 Completed [facility] Globulin 00:00:00 [facility] Rho (d) Immune 2016-03-27 Completed [facility] Globulin 00:00:00 [facility] Rho (d) Immune 2016-03-27 Completed [facility] Globulin 00:00:00 [facility] Rho (d) Immune 2016-03-27 Completed [facility] Globulin 00:00:00 [facility] Rho (d) Immune 2016-03-27 Completed [facility] Globulin 00:00:00 [facility] Rho (d) Immune 2016-03-27 Completed [facility] Globulin 00:00:00 [facility] Rho (d) Immune 2016-03-27 Completed [facility] Globulin 00:00:00 [facility] Rho (d) Immune 2016-03-27 Completed [facility] Globulin 00:00:00 [facility] Rho (d) Immune 2016-03-27 Completed [facility] Gl[facility]ulin 00:00:00 [facility] Rho (d) Immune 2016-03-27 Completed [facility] Globulin 00:00:00 [facility] Rho (d) Immune 2016-03-27 Completed [facility] Globulin 00:00:00 [facility] Rho (d) Immune 2016-03-27 Completed [facility] Globulin 00:00:00 [facility] Rho (d) Immune 2016-03-27 Completed [facility] Globulin 00:00:00 [facility] Rho (d) Immune 2016-03-27 Completed [facility] Globulin 00:00:00 [facility] Rho (d) Immune 2016-03-27 Completed [facility] Globulin 00:00:00 [facility] Rho (d) Immune 2016-03-27 Completed [facility] Globulin 00:00:00 [facility] Rho (d) Immune 2016-03-27 Completed [facility] Globulin 00:00:00 [facility] Rho (d) Immune 2016-03-27 Completed [facility] Globulin 00:00:00 [facility] Rho (d) Immune 2016-03-27 Completed [facility] Globulin 00:00:00 [facility] Rho (d) Immune 2016-03-27 Completed [facility] Globulin 00:00:00 [facility] Rho (d) Immune 2016-03-27 Completed [facility] Globulin 00:00:00 [facility] Rho (d) Immune 2016-03-27 Completed [facility] Globulin 00:00:00 [facility] Rho (d) Immune 2016-03-27 Completed [facility] Globulin 00:00:00 [facility] Rho (d) Immune 2016-03-27 Completed [facility] Globulin 00:00:00 [facility] Rho (d) Immune 2016-03-27 Completed [facility] Globulin 00:00:00 [facility] Rho (d) Immune 2016-03-27 Completed [facility] Globulin 00:00:00 [facility] Rho (d) Immune 2016-03-27 Completed [facility] Gl[facility]ulin 00:00:00 [facility] Rho (d) Immune 2016-03-27 Completed [facility] Globulin 00:00:00 [facility] Rho (d) Immune 2016-03-27 Completed [facility] Globulin 00:00:00 [facility] Rho (d) Immune 2016-03-27 Completed [facility] Globulin 00:00:00 [facility] Rho (d) Immune 2016-03-27 Completed [facility] Globulin 00:00:00 [facility] Rho (d) Immune 2016-03-27 Completed [facility] Globulin 00:00:00 [facility] Rho (d) Immune 2016-03-27 Completed [facility] Globulin 00:00:00 [facility] Rho (d) Immune 2016-03-27 Completed [facility] Globulin 00:00:00 [facility] Rho (d) Immune 2016-03-27 Completed [facility] Globulin 00:00:00 [facility] Rho (d) Immune 2016-03-27 Completed [facility] Globulin 00:00:00 [facility] Rho (d) Immune 2016-03-27 Completed [facility] Globulin 00:00:00 [facility] Rho (d) Immune 2016-03-27 Completed [facility] Globulin 00:00:00 [facility] Rho (d) Immune 2016-03-27 Completed [facility] Globulin 00:00:00 [facility] Rho (d) Immune 2016-03-27 Completed [facility] Globulin 00:00:00 [facility] Rho (d) Immune 2016-03-27 Completed [facility] Globulin 00:00:00 [facility] Rho (d) Immune 2016-03-27 Completed [facility] of Globulin 00:00:00 [facility] Rho (d) Immune 2016-03-27 Completed [facility] Globulin 00:00:00 [facility] Rho (d) Immune 2016-03-27 Completed [facility] Globulin 00:00:00 [facility] Rho (d) Immune 2016-03-27 Completed [facility] Globulin 00:00:00 [facility] Rho (d) Immune 2016-03-27 Completed [facility] Globulin 00:00:00 [facility] Rho (d) Immune 2016-03-27 Completed [facility] Globulin 00:00:00 [facility] Rho (d) Immune 2016-03-27 Completed [facility] Globulin 00:00:00 [facility] Rho (d) Immune 2016-03-27 Completed [facility] Globulin 00:00:00 [facility] Rho (d) Immune 2016-03-27 Completed [facility] Globulin 00:00:00 [facility] Rho (d) Immune 2016-03-27 Completed [facility] Globulin 00:00:00 [facility] Rho (d) Immune 2016-03-27 Completed [facility] Globulin 00:00:00 [facility] Rho (d) Immune 2016-03-27 Completed [facility] Globulin 00:00:00 [facility] Rho (d) Immune 2016-03-27 Completed [facility] Globulin 00:00:00 [facility] Rho (d) Immune 2016-03-27 Completed [facility] Globulin 00:00:00 [facility] Rho (d) Immune 2016-03-27 Completed [facility] Globulin 00:00:00 [facility] Rho (d) Immune 2016-03-27 Completed [facility] Globulin 00:00:00 [facility] Rho (d) Immune 2016-03-27 Completed [facility] Globulin 00:00:00 [facility] Rho (d) Immune 2016-03-27 Completed [facility] Globulin 00:00:00 [facility] Rho (d) Immune 2016-03-27 Completed [facility] Globulin 00:00:00 [facility] Rho (d) Immune 2016-03-27 Completed [facility] of Globulin 00:00:00 [facility] Rho (d) Immune 2016-03-27 Completed [facility] Globulin 00:00:00 [facility] Rho (d) Immune 2016-03-27 Completed [facility] Globulin 00:00:00 [facility] Rho (d) Immune 2016-03-27 Completed [facility] Globulin 00:00:00 [facility] Rho (d) Immune 2016-03-27 Completed [facility] Globulin 00:00:00 [facility] Rho (d) Immune 2016-03-27 Completed [facility] Globulin 00:00:00 [facility] Rho (d) Immune 2016-03-27 Completed [facility] Globulin 00:00:00 [facility] Rho (d) Immune 2016-03-27 Completed [facility] Globulin 00:00:00 [facility] Rho (d) Immune 2016-03-27 Completed [facility] Globulin 00:00:00 [facility] Rho (d) Immune 2016-03-27 Completed [facility] Globulin 00:00:00 [facility] Rho (d) Immune 2016-03-27 Completed [facility] Globulin 00:00:00 [facility] Rho (d) Immune 2016-03-27 Completed [facility] Globulin 00:00:00 [facility] Rho (d) Immune 2016-03-27 Completed [facility] Globulin 00:00:00 [facility] Rho (d) Immune 2016-03-27 Completed [facility] Globulin 00:00:00 [facility] Rho (d) Immune 2016-03-27 Completed [facility] Globulin 00:00:00 [facility] Rho (d) Immune 2016-03-27 Completed [facility] Globulin 00:00:00 [facility] Rho (d) Immune 2016-03-27 Completed [facility] Globulin 00:00:00 [facility] Rho (d) Immune 2016-03-27 Completed [facility] Globulin 00:00:00 [facility] Rho (d) Immune 2016-03-27 Completed [facility] Globulin 00:00:00 [facility] Vital Signs Vital Name Observation Time Observation Value Comments Source HEIGHT 2020-09-22 06:00:00 152.4 cm WEIGHT 2020-09-22 06:00:00 80.8 kg HEIGHT 2020-09-21 19:00:00 152.4 cm WEIGHT 2020-09-21 19:00:00 80.786 kg Systolic blood 2022-08-07 20:42:00 128 mm[Hg] Univer sity of pressure [facility] Diastolic blood 2022-08-07 20:42:00 67 mm[Hg] Unive rsity of pressure [facility] Heart rate 2022-08-07 20:42:00 79 /min [facility] Body temperature 2022-08-07 20:42:00 36.17 Shira Univ ersity of [facility] Respiratory rate 2022-08-07 20:42:00 18 /min Univ [facility] Body height 2022-08-07 20:42:00 160 cm [facility] Body weight 2022-08-07 20:42:00 90.674 kg [facility] BMI 2022-08-07 20:42:00 35.41 kg/m2 [facility] Systolic blood 2022-07-15 18:41:00 137 mm[Hg] [facility] Diastolic blood 2022-07-15 18:41:00 83 mm[Hg] Unive rsity of pressure [facility] Heart rate 2022-07-15 18:41:00 88 /min [facility] Body temperature 2022-07-15 18:41:[address] [facility] ersity of [facility] Respiratory rate 2022-07-15 18:41:00 16 /min Univ ersity of [facility] Body weight 2022-07-15 18:41:00 90.765 kg [facility] BMI 2022-07-15 18:41:00 35.45 kg/m2 [facility] Oxygen saturation in 2022-07-15 18:41:00 98 /min University Arterial blood by [facility] Pulse oximetry Branch Systolic blood 2022-07-08 20:58:00 135 mm[Hg] [facility]iver [facility]ity [facility] pressure [facility] Diastolic blood 2022-07-08 20:58:00 75 mm[Hg] Unive rsity of pressure [facility] Heart rate 2022-07-08 20:58:00 87 /min [facility] of [facility] Body temperature 2022-07-08 20:58:00 36.61 Shira [facility] Respiratory rate 2022-07-08 20:58:00 18 /min Univ [facility] Body height 2022-07-08 20:58:00 160 cm [facility] Body weight 2022-07-08 20:58:00 91.683 kg [facility] BMI 2022-07-08 20:58:00 35.80 kg/m2 [facility] Systolic blood 2022-06-17 19:29:00 114 mm[Hg] [facility] Diastolic blood 2022-06-17 19:29:00 83 mm[Hg] [facility]ive rsity [facility] Heart rate 2022-06-17 19:29:00 88 /min [facility] Body temperature 2022-06-17 19:29:00 36.11 Shira [facility] Respiratory rate 2022-06-17 19:29:00 18 /min Univ [facility] Body height 2022-06-17 19:29:00 160 cm [facility] Body weight 2022-06-17 19:29:00 92.307 kg [facility] BMI 2022-06-17 19:29:00 36.05 kg/m2 [facility] Systolic blood 2022-04-22 02:32:00 129 mm[Hg] [facility] Diastolic blood 2022-04-22 02:32:00 91 mm[Hg] Unive rsity of pressure [facility] Heart rate 2022-04-22 02:32:00 70 /min [facility] Body temperature 2022-04-22 02:32:00 37 Shira [facility] Respiratory rate 2022-04-22 02:32:00 18 /min Univ [facility] Body height 2022-04-22 02:32:00 162.6 cm [facility] Body weight 2022-04-22 02:32:00 86.183 kg [facility] BMI 2022-04-22 02:32:00 32.61 kg/m2 [facility] Oxygen saturation in 2022-04-22 02:32:00 99 /min University of Arterial blood by [facility] Pulse oxim[facility] Branch Systolic blood [...] 99 /min University of Arterial blood by [facility] oxim[facility] Systolic blood 2022-03-04 17:21:00 115 mm[Hg] Univer sity of pressure [facility] Diastolic blood 2022-03-04 17:21:00 79 mm[Hg] Unive rsity of pressure [facility] Heart rate 2022-03-04 17:21:00 82 /min [facility] Respiratory rate 2022-03-04 17:21:00 17 /min Univ ersity [facility] Body weight 2022-03-04 17:21:00 91.128 kg [facility] BMI 2022-03-04 17:21:00 34.48 kg/m2 [facility] Systolic blood 2022-02-16 23:00:00 130 mm[Hg] Univer [facility]ity of pressure [facility] Diastolic blood 2022-02-16 23:00:00 80 mm[Hg] Unive rsity of pressure [facility] Respiratory rate 2022-02-16 23:00:00 16 /min Univ [facility] Heart rate 2022-02-16 21:45:00 71 /min [facility] Oxygen saturation in 2022-02-16 21:45:00 98 /min University of Arterial blood by [facility] Body temperature 2022-02-16 18:25:13 37.22 Shira [facility] Body weight 2022-02-16 17:54:00 92.08 kg [facility] BMI 2022-02-16 17:54:00 34.84 kg/m2 [facility] Systolic blood 2022-02-12 14:54:00 120 mm[Hg] [facility]iver [facility] pressure [facility] Diastolic blood 2022-02-12 14:54:00 79 mm[Hg] Unive rsity of pressure [facility] Heart rate 2022-02-12 14:54:00 81 /min [facility] Body temperature 2022-02-12 14:54:00 36.67 Shira [facility] Respiratory rate 2022-02-12 14:54:00 18 /min Univ [facility] Oxygen saturation in 2022-02-12 14:54:00 98 /min University of Arterial blood by [facility] Body height 2022-02-10 22:10:00 162.6 cm [facility] Body weight 2022-02-10 22:10:00 96.163 kg [facility] BMI 2022-02-10 22:10:00 36.39 kg/m2 [facility] Systolic blood 2022-02-06 20:04:00 120 mm[Hg] [facility]iver [facility] Diastolic blood 2022-02-06 20:04:00 76 mm[Hg] Unive rsity [facility] pressure [facility] Heart rate 2022-02-06 20:04:00 89 /min [facility] Body temperature 2022-02-06 20:04:00 36.44 Shira [facility] Respiratory rate 2022-02-06 20:04:00 18 /min Univ [facility] Body height 2022-02-06 20:04:00 162.6 cm [facility] Body weight 2022-02-06 20:04:00 96.344 kg [facility] BMI 2022-02-06 20:04:00 36.46 kg/m2 [facility] Systolic blood 2022-02-03 21:03:00 121 mm[Hg] [facility] Diastolic blood 2022-02-03 21:03:00 73 mm[Hg] Unive rsity [facility] Heart rate 2022-02-03 21:03:00 85 /min [facility] Body temperature 2022-02-03 21:03:00 36.44 Shira [facility] Respiratory rate 2022-02-03 21:03:00 17 /min Univ [facility] Body height 2022-02-03 21:03:00 162.6 cm [facility] Body weight 2022-02-03 21:03:00 96.525 kg [facility] BMI 2022-02-03 21:03:00 36.53 kg/m2 [facility] Heart rate 2022-01-30 23:30:00 102 /min [facility] Oxygen saturation in 2022-01-30 23:30:00 99 /min University Arterial blood by [facility] Pulse oximetry Branch Systolic blood 2022-01-30 22:45:00 118 mm[Hg] [facility] Diastolic blood 2022-01-30 22:45:00 69 mm[Hg] Unive rsity of pressure [facility] Respiratory rate 2022-01-30 22:10:00 38 /min Univ [facility] Body temperature 2022-01-30 21:43:00 37.06 Shira [facility] Body height 2022-01-30 21:43:00 162.6 cm [facility] Body weight 2022-01-30 21:43:00 95.709 kg [facility] BMI 2022-01-30 21:43:00 36.22 kg/m2 [facility] Systolic blood 2022-01-29 20:36:00 128 mm[Hg] Univer [facility]ity [facility] Diastolic blood 2022-01-29 20:36:00 76 mm[Hg] Unive rsity [facility] Heart rate 2022-01-29 20:36:00 78 /min [facility] Body temperature 2022-01-29 20:36:00 36.78 Shira [facility] Respiratory rate 2022-01-29 20:36:00 18 /min Univ [facility] Body height 2022-01-29 20:36:00 162.6 cm [facility] Body weight 2022-01-29 20:36:00 96.117 kg [facility] BMI 2022-01-29 20:36:00 36.37 kg/m2 [facility] Systolic blood 2022-01-27 18:57:00 118 mm[Hg] [facility]iver [facility] Diastolic blood 2022-01-27 18:57:00 72 mm[Hg] Unive rsity [facility] pressure [facility] Heart rate 2022-01-27 18:57:00 86 /min [facility] Body temperature 2022-01-27 18:57:00 36.61 Shira [facility] Respiratory rate 2022-01-27 18:57:00 20 /min Univ [facility] Body height 2022-01-27 18:57:00 162.6 cm [facility] Body weight 2022-01-27 18:57:00 96.798 kg [facility] BMI 2022-01-27 18:57:00 36.63 kg/m2 [facility] Systolic blood 2022 21:02:00 126 mm[Hg] Univer [facility]ity [facility] Diastolic blood 2022 21:02:00 68 mm[Hg] Unive rsity [facility] Heart rate 2022 21:02:00 88 /min [facility] Body temperature 2022 21:02:00 36.39 Shira [facility] Respiratory rate 2022 21:02:00 17 /min Univ [facility] Body height 2022 21:02:00 162.6 cm [facility] Body weight 2022 21:02:00 97.16 kg [facility] BMI 2022 21:02:00 36.77 kg/m2 [facility] Systolic blood 2022-01-21 16:22:00 132 mm[Hg] Univer [facility]ity [facility] pressure [facility] Diastolic blood 2022-01-21 16:22:00 79 mm[Hg] Unive rsity [facility] Heart rate 2022-01-21 16:22:00 99 /min [facility] Body temperature 2022-01-21 16:22:00 36.11 Shira [facility] Respiratory rate 2022-01-21 16:22:00 17 /min Univ [facility] Body height 2022-01-21 16:22:00 162.6 cm [facility] Body weight 2022-01-21 16:22:00 95.845 kg [facility] BMI 2022-01-21 16:22:00 36.27 kg/m2 [facility] Systolic blood 2022-01-16 19:35:00 121 mm[Hg] Univer [facility]ity of pressure [facility] Diastolic blood 2022-01-16 19:35:00 79 mm[Hg] Unive rsity of pressure [facility] Heart rate 2022-01-16 19:35:00 94 /min [facility] Body temperature 2022-01-16 19:35:00 36.83 Shira [facility] Respiratory rate 2022-01-16 19:35:00 20 /min Univ [facility] Body height 2022-01-16 19:35:00 162.6 cm [facility] Body weight 2022-01-16 19:35:00 95.936 kg [facility] BMI 2022-01-16 19:35:00 36.30 kg/m2 [facility] Systolic blood 2022-01-13 16:56:00 126 mm[Hg] Univer [facility]ity of pressure [facility] Diastolic blood 2022-01-13 16:56:00 68 mm[Hg] [facility]ive [facility]ity [facility] Heart rate 2022-01-13 16:56:00 77 /min [facility] Body temperature 2022-01-13 16:56:00 36.5 Shira [facility] Respiratory rate 2022-01-13 16:56:00 17 /min [facility] Body height 2022-01-13 16:56:00 162.6 cm [facility] Body weight 2022-01-13 16:56:00 96.163 kg [facility] BMI 2022-01-13 16:56:00 36.39 kg/m2 [facility] Systolic blood 2022-01-09 18:46:00 115 mm[Hg] [facility] Diastolic blood 2022-01-09 18:46:00 79 mm[Hg] [facility] Heart rate 2022-01-09 18:46:00 79 /min [facility] Body temperature 2022-01-09 18:46:00 36.67 Shira [facility] Respiratory rate 2022-01-09 18:46:00 18 /min [facility] Body height 2022-01-09 18:46:00 162.6 cm [facility] Body weight 2022-01-09 18:46:00 96.117 kg [facility] BMI 2022-01-09 18:46:00 36.37 kg/m2 [facility] Systolic blood 2022-01-06 19:15:00 132 mm[Hg] [facility] Diastolic blood 2022-01-06 19:15:00 74 mm[Hg] [facility] Heart rate 2022-01-06 19:15:00 86 /min [facility] Body temperature 2022-01-06 19:15:00 36.78 Shira [facility] Respiratory rate 2022-01-06 19:15:00 18 /min [facility] Body height 2022-01-06 19:15:00 162.6 cm [facility] Body weight 2022-01-06 19:15:00 94.944 kg [facility] BMI 2022-01-06 19:15:00 35.93 kg/m2 [facility] Systolic blood 2022-01-02 18:24:00 111 mm[Hg] [facility] Diastolic blood 2022-01-02 18:24:00 69 mm[Hg] [facility] Heart rate 2022-01-02 18:24:00 83 /min [facility] Body temperature 2022-01-02 18:24:00 36.28 Shira [facility] Respiratory rate 2022-01-02 18:24:00 17 /min [facility] Body height 2022-01-02 18:24:00 162.6 cm [facility] Body weight 2022-01-02 18:24:00 94.575 kg [facility] BMI 2022-01-02 18:24:00 35.79 kg/m2 [facility] Systolic blood 2021-12-30 20:46:00 137 mm[Hg] [facility] Diastolic blood 2021-12-30 20:46:00 77 mm[Hg] [facility] Heart rate 2021-12-30 20:46:00 89 /min [facility] Body temperature 2021-12-30 20:46:00 36.22 Shira [facility] Respiratory rate 2021-12-30 20:46:00 18 /min [facility] Body height 2021-12-30 20:46:00 162.6 cm [facility] Body weight 2021-12-30 20:46:00 95.851 kg [facility] BMI 2021-12-30 20:46:00 36.27 kg/m2 [facility] Systolic blood 2021-12-17 19:45:00 127 mm[Hg] [facility] Diastolic blood 2021-12-17 19:45:00 84 mm[Hg] [facility] Heart rate 2021-12-17 19:45:00 107 /min [facility] Body temperature 2021-12-17 19:45:00 35.94 Shira [facility] Respiratory rate 2021-12-17 19:45:00 18 /min [facility] Body height 2021-12-17 19:45:00 162.6 cm [facility] Body weight 2021-12-17 19:45:00 94.065 kg [facility] BMI 2021-12-17 19:45:00 35.60 kg/m2 [facility] Heart rate 2021-12-01 21:00:00 90 /min [facility] Oxygen saturation in 2021-12-01 21:00:00 99 /min [facility] [place] [facility] Systolic blood 2021-12-01 20:45:00 136 mm[Hg] [facility] Diastolic blood 2021-12-01 20:45:00 73 mm[Hg] [facility] Body temperature 2021-12-01 20:12:00 36.33 Shira [facility] Respiratory rate 2021-12-01 20:12:00 18 /min [facility] Body weight 2021-12-01 19:42:00 92.987 kg [facility] BMI 2021-12-01 19:42:00 35.19 kg/m2 [facility] Systolic blood 2021-11-30 16:47:00 133 mm[Hg] [facility] Diastolic blood 2021-11-30 16:47:00 73 mm[Hg] [facility] Heart rate 2021-11-30 16:47:00 96 /min [facility] Body temperature 2021-11-30 16:47:00 36.17 Shira [facility] Respiratory rate 2021-11-30 16:47:00 18 /min [facility] Body weight 2021-11-30 16:47:00 94.031 kg [facility] BMI 2021-11-30 16:47:00 35.58 kg/m2 [facility] Oxygen saturation in 2021-11-30 16:47:00 97 /min [facility] [place] [facility] Systolic blood 2021-11-29 13:03:00 113 mm[Hg] [facility] Diastolic blood 2021-11-29 13:03:00 65 mm[Hg] [facility] Heart rate 2021-11-29 13:03:00 82 /min [facility] Body temperature 2021-11-29 13:03:00 36.89 Shira [facility] Respiratory rate 2021-11-29 13:03:00 20 /min [facility] Body height 2021-11-29 13:03:00 162.6 cm [facility] Body weight 2021-11-29 13:03:00 92.987 kg [facility] BMI 2021-11-29 13:03:00 35.19 kg/m2 [facility] Oxygen saturation in 2021-11-29 13:03:00 100 /min [facility] Arterial blood by [facility] Pulse oximetry Branch HEIGHT 2020-09-22 06:00:00 152.4 cm WEIGHT 2020-09-22 06:00:00 80.8 kg HEIGHT 2020-09-21 19:00:00 152.4 cm WEIGHT 2020-09-21 19:00:00 80.786 kg Procedures Procedure Date / Time Performing Clinician Source Performed POCT URINALYSIS 2022-08-07 20:46:00 Taya [facility] FIRST TRIMESTER 2022-07-28 16:17:00 [facility] BASIC METABOLIC PANEL 2022-07-15 19:27:00 Dariela Jacob [facility] (NA, K, CL, CO2, GLUCOSE, Medica l Branch BUN, CREATININE, CA) CBC WITH DIFF 2022-07-15 19:27:00 Dariela Jacob [facility] URINALYSIS 2022-07-15 19:27:00 Dariela Jacob [facility] ASSIGNMENT OF BENEFITS 2022-07-15 19:07:00 [facility] CONSENT/REFUSAL FOR 2022-07-15 18:26:58 Doctor Unassigned, [facility] DIAGNOSIS AND TREATMENT [facility] POCT URINALYSIS 2022-07-08 20:58:00 Taya [facility] POCT TEST 2022-06-17 19:17:00 Alma [facility] POCT URINALYSIS W/O 2022-06-17 19:17:00 Alma Solis [facility] SPECIFIC GRAVITY [facility] PATIENT FINANCIAL 2022-06-17 19:02:51 Doctor Unassigned, [facility] POLICY [facility] POCT TEST 2022-04-22 05:04:00 Kiarra Arizmendi [facility] COMP. METABOLIC PANEL 2022-04-22 04:35:00 Kiarra Arizmendi [facility] ([id number]) [facility] CBC WITH DIFF 2022-04-22 04:35:00 Ugo [facility] URINALYSIS 2022-04-22 04:35:00 Ugo [facility] NOTICE OF PRIVACY 2022-04-22 02:08:27 Doctor Unatamika, [facility] PRACTICES [facility] CONSENT/REFUSAL FOR 2022-04-22 02:07:10 Doctor Unatamika, [facility] DIAGNOSIS AND TREATMENT [facility] PREPARE PACKED RBC 2022-02-16 23:41:05 Raven Goldsmith [facility] CT CHEST PULMONARY 2022-02-16 21:13:19 Raven Goldsmith [facility] ANGIOGRAM [facility] CT HEAD WO CONTRAST 2022-02-16 21:12:52 Raven Goldsmith [facility] US PELVIS COMPLETE WITH 2022-02-16 19:47:38 Raven Goldsmith [facility] TRANSVAGINAL [facility] HB ABO GROUPING 2022-02-16 18:30:00 Raven Goldsmith [facility] MAGNESIUM 2022-02-16 18:29:00 Raven Goldsmith [facility] TROPONIN I 2022-02-16 18:29:00 Raven Goldsmith [facility] COMP. METABOLIC PANEL 2022-02-16 18:29:00 Raven Goldsmith [facility] ([id number]) [facility] [place] CBC WITH DIFF 2022-02-16 18:29:00 Raven Goldsmith [facility] PROTHROMBIN TIME / INR 2022-02-16 18:29:00 Raven Goldsmith [facility] ACTIVATED PARTIAL 2022-02-16 18:29:00 Raven Goldsmith [facility] THRMPLAS ISABELL [facility] N-TERMINAL PRO-BNP 2022-02-16 18:29:00 Raven Goldsmith [facility] URINALYSIS 2022-02-16 18:14:00 Raven Goldsmith [facility] URINE DRUG (IMMUNOASSAY) 2022-02-16 18:14:00 Raven Goldsmith [facility] SCREEN W/O REFLEX CONSENT/REFUSAL FOR 2022-02-16 17:48:27 Doctor Unassmindi, [facility] DIAGNOSIS [facility] TREAT[facility] WITH DIFF 2022-02-12 10:03[facility] 2022-02-12 10:00:[address] [facility] HEMORRHAGE SCREEN [facility] VENOUS CORD GAS 2022-02-11 16:58:00 James [facility] CENTRAL NEURAXIAL BLOCK 2022-02-11 06:58:26 Nory Jiménez [facility] CBC WITH DIFF 2022-02-10 23:27:00 James [facility] HEPATITIS B SURFACE 2022-02-10 23:27:00 Raya Ramirez [facility] ANTIGEN [facility] HIV 1/2 AG-AB WITH REFLEX 2022-02-10 23:27:00 [facility] - SYPHILIS 2022-02-10 23:27:00 Raya Ramirez [facility] IGG/IGM [facility] ANTI-D R/O PANEL 2022-02-10 23:25:00 James [facility] HB ABO GROUPING 2022-02-10 23:25:00 James [facility] RHO (D) IMMUNE GLOBULIN 2022-02-10 23:25:00 Hermila [facility] AUTHORIZATION FOR RELEASE 2022-02-07 06:01:00 Doctor Unassigned, [facility] NON-STRESS TEST 2022-02-06 21:51:27 Kevin Singh [facility] POCT URINALYSIS 2022-02-06 00:00:00 Alma Solis [facility] POCT URINALYSIS 2022-02-03 22:20:00 Alma Solis [facility] NON-STRESS TEST 2022-02-03 21:35:28 FlorindaAlma looney U [facility] URINE DRUG (IMMUNOASSAY) 2022-01-30 22:11:00 Dennys Lara [facility] SCREEN URINALYSIS 2022-01-30 22:11:00 Areli Patel [facility] HB ABO GROUPING 2022-01-30 21:57:00 Areli Patel [facility] LIPASE 2022-01-30 21:52:00 Areli Patel [facility] MAGNESIUM 2022-01-30 21:52:00 Areli Patel [facility] COMP. METABOLIC PANEL 2022-01-30 21:52:00 Areli Patel [facility] ([id number]) [facility] CBC WITH DIFF 2022-01-30 21:52:00 Areli Patel [facility] PROTHROMBIN TIME / INR 2022-01-30 21:52:00 [facility] (ID NOW RAPID 2022-01-30 21:52:00 Areli Patel [facility] TESTING) [facility] HOSPITAL ADMISSION 2022-01-30 06:01:00 Doctor Unassigned, [facility] NON-STRESS TEST 2022-01-30 02:30:41 [facility]FF 2022-01-29 21:15:00 Radha Nobles [facility] GC & CHLAMYDIA AMPLIFIED 2022-01-29 21:15:00 Radha Nobles [facility] GROUP B STREPTOCOCCUS BY 2022-01-29 21:15:00 Radha Nobles [facility] POCT URINALYSIS 2022-01-29 00:00:00 Akinsipe, Alma C [facility] NON-STRESS TEST 2022-01-28 20:12:49 Akinsipe, Alma C U [facility] POCT URINALYSIS 2022-01-27 00:00:00 Akinsipe, Alma C [facility] NON-STRESS TEST 2022 21:50:59 Akinsipe, Alma C U [facility] POCT URINALYSIS 2022 00:00:00 Akinsipe, Alma C [facility] NON-STRESS TEST 2022-01-21 18:09:21 Radha Nobles Un [facility] POCT URINALYSIS 2022-01-21 00:00:00 Akinsipe, Alma C [facility] NON-STRESS TEST 2022-01-16 20:01:49 Amy Sharma [facility] NON-STRESS TEST 2022-01-13 17:45:33 Radha Nobles Un [facility] POCT URINALYSIS 2022-01-13 00:00:00 Akinsipe, Alma C [facility] POCT URINALYSIS 2022-01-09 18:51:00 Akinsipe, Alma C [facility] NON-STRESS TEST 2022-01-07 14:56:27 Akinsipe, Alma C U [facility] POCT URINALYSIS 2022-01-06 19:16:00 Akinsipe, Alma C [facility] PATIENT CORRESPONDENCE 2022-01-03 05:01:00 Doctor Unassigned, Un [facility] (LETTERS, USPS [facility] DOCUMENTATION) NON-STRESS TEST 2022-01-02 20:04:00 Kevin Singh [facility] POCT URINALYSIS 2022-01-02 00:00:00 Alma Solis [facility] POCT URINALYSIS 2021-12-30 20:47:00 Alma Solis [facility] POCT URINALYSIS 2021-12-17 19:46:00 Alma Solis [facility] TDAP VACCINE, >11 YRS, IM 2021-12-17 19:45:33 Alma Solis [facility] URINALYSIS 2021-12-01 21:41:00 Clayton [facility] o f [facility] CONSENT/REFUSAL FOR 2021-12-01 19:40:14 Doctor Unassigned, [facility] DIAGNOSIS AND TREATMENT [facility] CONSENT/REFUSAL FOR 2021-11-30 16:38:10 Doctor Unassigned, [facility] DIAGNOSIS AND TREATMENT [facility] POCT URINALYSIS 2021-11-29 00:00:00 Alma Solis [facility] AUTHORIZATION FOR RELEASE 2021-07-19 05:01:00 Doctor Thien, [facility] Plan of Care Planned Activity Planned Date [...] INFLUENZA VACCINE (Season Ended)] Future Scheduled 2022-11-[address] [facility] Test 00:00:00 (Season Ended) [code Medical Center = Influenza Vaccine (Season Ended)] Future Scheduled 2022-06-08 [facility]:29:23 [code = COVID-19 VACCINE (#1)] Future Scheduled 2022-06-08 [facility] Test 13:29:23 malignant neoplasm of cervix (procedure) [code = 409368054] Future Scheduled 2022-06-08 [facility] Test 13:29:23 malignant neoplasm of cervix (procedure) [code = 456872092] Future Scheduled 2022-06-08 IN[facility]ENZA VACCINE [facility] 13:29:23 [code = INFLUENZA VACCINE] Future Scheduled 2022-06-08 [facility] 13:29:23 [code = COVID-19 VACCINE (#1)] Future Scheduled 2022-06-08 [facility]ZA [facility]ACCINE [facility] 13:29:23 [code = INFLUENZA VACCINE] Future Scheduled 2022-06-08 COVID[facility] 13:29:23 [code = COVID-19 VACCINE (#1)] Future Scheduled 2022-06-08 [facility] Test 13:29:23 malignant neoplasm of cervix (procedure) [code = 332150027] Future Scheduled 2022-06-08 INFLUENZA VACCINE Method ist [...] Center DEPRESSION SCREENING (12+)] Future Scheduled 2022-03-02 [facility]ENZA VACCINE [facility] 16:47:47 [code = INFLUENZA VACCINE] Future Scheduled 2022-03-02 COVID[facility]19 [facility] 16:47:47 [code = COVID-19 VACCINE (#1)] Future Scheduled 2022-03-02 [facility] Test 16:47:47 malignant neoplasm of cervix (procedure) [code = 355842155] Future Scheduled 2022-01-12 HEPATITIS B [facility]ACCINES [facility] 19:54:31 (1 of 3 - 3-dose series) [code = HEPATITIS B VACCINES (1 of 3 - 3-dose series)] Future Scheduled 2022-01-12 COVID[facility]19 [facility] 19:54:31 [code = COVID-19 VACCINE (#1)] Future Scheduled 2022-01-12 [facility] Test 19:54:31 Chlamydia trachomatis (procedure) [code = 209407589] Future Scheduled 2022-01-[address] [facility] 19:54:31 (procedure) [code = 697608436] Future Scheduled 2022-01-12 [facility] Test 19:54:31 malignant neoplasm of cervix (procedure) [code = 828001970] Future Scheduled 2022-01-12 [facility]ZA [facility]ACCINE [facility] 19:54:31 [code = INFLUENZA VACCINE] Future Scheduled 2021-11-09 COVID-19 VACCINE (#1) [facility] Test 06:02:25 [code = COVID-19 VACCINE (#1)] Future Scheduled 2021-11-09 [facility] Test 06:02:25 Chlamydia trachomatis (procedure) [code = 008432733] Future Scheduled 2021-11-09 Hepatitis C screening [facility] Test 06:02:25 (procedure) [code = 116763816] Future Scheduled 2021-11-09 [facility] Test 06:02:25 malignant neoplasm of cervix (procedure) [code = 544343967] Future Scheduled 2021-11-09 [facility]ZA [facility]ACCINE [facility] 06:02:25 [code = INFLUENZA VACCINE] Future Scheduled 2021-11-09 HEPATITIS B VACCINES Met [facility] Test 06:02:25 (1 of 3 - 3-dose series) [code = HEPATITIS B VACCINES (1 of 3 - 3-dose series)] Future Scheduled 2021-11-09 COVID-19 VACCINE (#1) [facility] Test 06:02:25 [code = COVID-19 VACCINE (#1)] Future Scheduled 2021-11-09 [facility] Test 06:02:25 Chlamydia trachomatis (procedure) [code = 666499167] Future Scheduled 2021-11-09 Hepatitis C screening [facility] Test 06:02:25 (procedure) [code = 652822052] Future Scheduled 2021-11-09 [facility] Test 06:02:25 malignant neoplasm of cervix (procedure) [code = 633014924] Future Scheduled 2021-11-09 [facility]ENZA VACCINE [facility] 06:02:25 [code = INFLUENZA VACCINE] Future Scheduled 2021-11-09 HEPATITIS B VACCINES Met [facility] Test 06:02:25 (1 of 3 - 3-dose series) [code = HEPATITIS B VACCINES (1 of 3 - 3-dose series)] Future Scheduled 2021-11-[address] [facility] Test 00:00:00 (#1) [code = Medical Center INFLUENZA VACCINE (#1)] Future Scheduled 2021-11-[address] [facility] Test 00:00:00 (#1) [code = [facility] INFLUENZA VACCINE (#1)] Future Scheduled 2021-11-[address] [facility] Test 00:00:00 (#1) [code = [facility] INFLUENZA VACCINE (#1)] Future Scheduled 2021-11-[address] [facility] Test 00:00:00 (#1) [code = [facility] INFLUENZA VACCINE (#1)] Future Scheduled 2021-09-24 [...] [facility] l Center cervix (procedure) [code = 815688328] Future Scheduled [address] [facility] 00:[facility]:00 malignant neoplasm of [facility] cervix (procedure) [code = 776311505] Future Scheduled [address] [facility] 00:00:00 malignant neoplasm of [facility] cervix (procedure) [code = 690199120] Future Scheduled [address] [facility] Test 00:00:00 malignant neoplasm of [facility] cervix (procedure) [code = 159958721] Future Scheduled [address] [facility] Test 00:00:00 malignant neoplasm of [facility] Center cervix (procedure) [code = 213850917] Future Scheduled [address] [facility] Test 00:00:00 malignant neoplasm of [facility] Center cervix (procedure) [code = 040225846] Future Scheduled [address] [facility] 00:00:00 malignant neoplasm of [facility] Center cervix (procedure) [code = 528780495] Future Scheduled [address] [facility] Test 00:[facility]:00 (procedure) [code = [facility] 71371510] Future Scheduled [address] [facility] Test 00:00:00 (procedure) [code = [facility] 24222364] Future Scheduled [address] [facility] Test 00:00:00 (procedure) [code = [facility] 97547239] Future Scheduled [address] [facility] Test 00:00:00 (procedure) [code = [facility] 18412193] Future Scheduled [address] [facility] Test 00:00:00 (procedure) [code = [facility] 98986425] Future Scheduled [address] [facility] Test 00:00:00 (procedure) [code = Medical Center 11562859] Future Scheduled [address] [facility] Test 00:00:00 (procedure) [code = [facility] 04734241] Future Scheduled 2015 HEPATITIS C SCREENING CH [...] [facility] (procedure) [code = 714613973] Future Scheduled [facility] Test malignant neoplasm of cervix (procedure) [code = 352634588] Future Scheduled INFLUENZA VACCINE [facility] Test [code = INFLUENZA VACCINE] Encounters Start End Encounter Admission Attending Care Care Encounter Source Date/Time Date/Time Type Type Clinicians Facility Department ID 2021-12-01 Outpatient P RUST MARGOT [id number] [facility] 18:22:19 ity of [facility] 2021-01-07 Emergency [facility] [id number] Univers 07:14:20 ity of [facility] 2021-01-07 Emergency [facility] [id number] Univers 06:42:50 ity of [facility] 2021-01-07 Emergency [facility] [id number] Univers 06:25:23 ity of [facility] 2021-01-07 Emergency [facility] [id number] Univers 03:52:48 ity of [facility] 2021-01-07 Emergency [facility] [id number] Univers 03:25:06 ity of [facility] 2021-01-06 Emergency [facility] [id number] Univers 03:53:51 ity of [facility] 2020-09-21 Inpatient ER TESHA [facility] [id number] [facility] 19:23:00 JOANNE 2022-09-11 2022-09-11 Outpatient R [facility] [id number] Univers 10:00:00 10:00:00 ity [facility] 2022-08-15 2022-08-15 [facility] [id number] Univers 00:00:00 00:00:00 Alma Estevez [facility] [employer] [id number] ity [facility] [id number] Dwayne as MATERNAL [id number] Med ical & CHILD [address] [place] [address] 2022-08-14 2022-08-14 Outpatient P ZEN CORREA [facility] [id number] Univers 10:45:00 12:01:26 ZEN CORREA ity [facility] 2022-08-14 2022-08-14 Neurology Specialist Lab, [facility] [id number]. [id number] Univers 11:30:00 11:47:20 Visit Akosua Edouard [facility] [id number] ity of REGIONAL [id number] Dwayne as MATERNAL [id number] Med ical & CHILD [address] [facility] 2022-08-14 2022-08-14 Neurology Specialist Urbano Elias [facility] [id number]. [id number] Univers 10:45:00 11:30:00 Visit Zen Correa [facility] [employer] [id number] ity of REGIONAL [id number] Dwayne as MATERNAL [id number] [facility] ical & CHILD [address] [facility] 2022-08-07 2022-08-07 Outpatient R IRMA, [facility] [id number] Univers 16:00:00 16:01:08 ALMA pierce [facility] 2022-08-07 2022-08-07 [facility] [id number] Univers 16:00:00 16:01:08 Alma Estevez [employer] [id number] ity of Visit REGIONAL [id number] Dwayne as MATERNAL [id number] [facility] CHILD [address] [place] [address] 2022-07-29 2022-07-29 Abstract [facility] [id number] Univers 00:00:00 00:00:00 Mallory [employer] [employer] [id number] it y of REGIONAL [id number] Dwayne as MATERNAL [id number] [facility] & CHILD [address] [place] [address] 2022-07-29 2022-07-29 Abstract [facility] 1.2.840.114 [id number] Univers 00:00:00 00:00:00 Mallory TREE CLIMBER 350.1.13.10 it y of REGIONAL 4.2.7.2.686 Dwayne as MATERNAL [id number] [facility] CHILD [address] [place] [address] 2022-07-28 2022-07-28 Outpatient R CHIQUIS KATE [facility] [id number] Univers 12:00:00 12:00:00 CHIQUIS KATE [facility] 2022-07-28 2022-07-28 Neurology Specialist 1, Suzie-Mfm Room RUST 1.2. 840.114 [id number] Univers 11:15:00 11:19:29 Visit Chiquis Kate TREE CLIMBER 350.1.13.10 ity of [facility] 4.2.7.2.686 Dwayne as MATERNAL [id number] [facility] & CHILD [address] [place] [address] 2022-07-15 2022-07-15 [facility] [id number] Univers 13:43:00 16:41:00 [facility]22-07-15 2022-07-15 [facility] 1.2.458.592 [id number] Univers 13:43:00 16:41:00 Dariela Estevez [place] 350.1.13.10 i ty of [place].2.7.2.[place] [id number] [address] 2022-07-15 2022-07-15 [facility]phone [facility] 1.2.840.114 1 [id number] Univers 00:00:00 00:00:00 Radha A TREE CLIMBER 350.1.13.10 i ty of [facility] 4.2.7.2.686 Dwayne as MATERNAL [id number] [facility] & [address] 2022-07-08 2022-07-08 Outpatient Bryn NOBLES [facility] [id number] Univers 15:30:00 16:17:39 RADHA [facility] 2022-07-08 2022-07-08 Routine [facility] 1.2.840.114 [id number] Univers 15:30:00 16:17:39 Radha A TREE CLIMBER 350.1.13.10 ity of Visit [facility] 4.2.7.2.686 Dwayne as MATERNAL [id number] [facility] & [address] 2022-07-08 2022-07-08 Outpatient [facility] [id number] Univers 15:30:00 15:30:00 RADHA [facility] 2022-07-08 2022-07-08 Letter [facility] 1.2.840.114 [id number] Univers 00:00:00 00:00:00 (Out) Radha Begum TREE CLIMBER 350.1.13.10 i ty of REGIONAL 4.2.7.2.686 [place]wayne as MATERNAL [id number] [facility] CHILD [address] [place] [address] 2022-07-03 2022-07-03 Outpatient [facility] [id number] Univers 11:00:00 11:00:00 RADHA ity [facility] 2022-06-24 2022-06-24 Telephone [facility] 1.2.840.114 [id number] Univers 00:00:00 00:00:00 Alma Estevez T[place] CLIM[place] 350.1.13.10 ity of [facility] 4.2.7.2.686 [place] as MATERNAL [id number] [address] 2022-06-23 2022-06-23 Telemedici Faculty, Reddy [facility] 1.2.840.114 [id number] Univers 15:30:00 16:00:00 ne Visit Seth Kay TREE CLIMBER 350.1.13. 10 ity of [facility] 4.2.7.2.686 [place] as MATERNAL [id number] [address] 2022-06-23 2022-06-23 Outpatient R NIESHA [facility] [id number] Univers 15:30:00 15:30:00 SETH ity [facility] 2022-06-19 2022-06-19 Telephone [facility] 1.2.870.361 [id number] Univers 00:00:00 00:00:00 Mallory TREE CLIMBER 350.1.13.10 it y of [facility] 4.2.7.2.686 Dwayne as MATERNAL [id number] [facility] & CHILD [address] [place] [address] 2022-06-18 2022-06-18 Telephone [facility] 1.2.123.262 [id number] Univers 00:00:00 00:00:00 Mallory TREE CLIMBER 350.1.13.10 it y of [facility] 4.2.7.2.686 Dwayne as MATERNAL [id number] [facility] ical & CHILD [address] [place] [address] 2022-06-17 2022-06-17 Outpatient R IRMA, [facility] [id number] Univers 14:45:00 15:19:39 ALMA ity o f [facility] 2022-06-17 2022-06-17 Initial Irma, RUST 1.2.508.693 [id number] Univers 14:45:00 15:19:39 Alma C TREE CLIMBER 350.1.13.10 ity of Visit [facility] 4.2.7.2.686 Dwayne as MATERNAL [id number] [facility] ical & CHILD [address] [place] [address] 2022-06-17 2022-06-17 Orders Doctor COLT 1.2.840.114 [id number] Univers 00:00:00 00:00:00 Only Unassigned, PARUL 350.1.13.10 ity of [place] [facility] 4.2.7.2.686 Dwayne as [id number] [facility] [address] 2022-04-21 2022-04-21 Emergency X ARIZMENDI, [facility]UST ERT [id number] Univers 20:35:00 23:49:00 KIARRA [facility] 2022-04-21 2022-04-21 Emergency Arizmendi, RUST 1.2.840.114 [id number] Univers 20:35:00 23:49:00 Kiarra [place] 350.1.13.10 i ty [facility] 4.2.7.2.686 [place] [id number] [facility] [address] 2022-03-28 2022-03-28 Outpatient R GIULIANO, [facility] [id number] Univers 13:00:00 13:00:00 RADHA [facility] 2022-03-18 2022-03-18 Outpatient R JF, [facility] [id number] Univers 14:15:00 15:00:29 MAU [facility] 2022-03-18 2022-03-18 Nurse Nurse, Reddy [facility] RUST 1.2.840.114 [id number] Univers 14:15:00 14:35:00 Visit Unknown, Attending [facility] 350.1.13.10 ity of [place] 4.2.7.2.686 Dwayne as JORGE?BLEA [id number] [place] anselmo GALLARDO [address] [place] [address] MEDICAL OFFICE BUILDING 2022-03-04 2022-03-04 Outpatient R GIULIANO [facility] [id number] Univers 11:00:00 11:52:45 RADHA ity [facility] 2022-03-04 2022-03-04 Routine Provider, [facility] 1 .2.840.114 [id number] Univers 11:00:00 11:52:45 Radha Nobles TREE CLIMBER 350.1.13. 10 ity of Visit [facility] 4.2.7.2.686 Dwayne as MATERNAL [id number] Med ical & CHILD [address] [place] [address] 2022-02-20 2022-02-20 Case Marco RUST 1.2.840.114 [id number] Univers 00:00:00 00:00:00 Management Dennys MATT 350.1.13.10 ity [facility] 4.2.7.2.686 [facility] [id number] [address] 2022-02-17 2022-02-17 Outpatient R [facility] [id number] Univers 15:00:00 15:00:00 ity of [facility] 2022-02-16 2022-02-16 Emergency [facility] ERT [id number] Univers 12:01:00 17:40:00 RAVEN ity [facility] 2022-02-16 2022-02-16 Emergency [facility] 1.2.206.554 [id number] Univers 12:01:00 17:40:00 Raven GUTIERREZ 350.1.13.10 i ty of [facility] 4.2.7.2.686 [facility] [id number] [address] 2022-02-10 2022-02-12 Inpatient X CHIQUIS KATE RUST MARGOT 1 [id number] Univers 15:37:00 16:21:00 [facility]22-02-10 2022-02-12 Hospital Eladia Conklinchristopherjesse COLT 1 .2.840.114 [id number] Univers 15:37:00 16:21:00 Encounter Chiquis Kate 350.1.13.10 ity of [facility] 4.2.7.2.686 Dwayne as [id number] [facility] [address] 2022-02-11 2022-02-11 Anesthesia Nory Jiménez 1.2.840 .114 [id number] Univers 00:25:00 12:19:00 Event Martha Agarwal PARUL 350.1.13.10 ity of [facility] 4.2.7.2.686 Dwayne as [id number] [facility] [address] 2022-02-11 2022-02-11 Outpatient Bryn NOBLES [facility] [id number] Univers 10:15:00 10:15:00 [facility] 2022-02-10 2022-02-10 Telephone [facility] 1.2.840.114 [id number] Univers 00:00:00 00:00:00 Alma Estevez TREE CLIM[place] 350.1.13.10 ity of [facility] 4.2.7.2.686 Dwayne as MATERNAL [id number] Med ical & CHILD [address] [place] [address] 2022-02-07 2022-02-07 Orders Doctor COLT 1.2.840.114 [id number] Univers 00:00:00 00:00:00 Only Unassigned, PARUL 350.1.13.10 ity of [place] [facility] 4.2.7.2.686 Dwayne as [id number] [facility] [address] 2022-02-06 2022-02-06 Outpatient Bryn SINGH [facility] [id number] Univers 13:30:00 14:32:26 KEVIN yolie [facility] 2022-02-06 2022-02-06 Routine Risk, Duo-Flnub-Af/High [facility] 1. 2.840.114 [id number] Univers 13:30:00 14:32:26 Kevin Singh TREE CLIMBER 350.1.13.10 ity of Visit REGIONAL 4.2.7.2.686 Dwayne as MATERNAL [id number] [facility] CHILD [address] [place] [address] 2022-02-03 2022-02-03 Outpatient R IRMA [facility] [id number] Univers 15:15:00 15:34:29 ALMA ity o f [facility] 2022-02-03 2022-02-03 Routine Irma, RUST 1.2.009.125 [id number] Univers 15:15:00 15:34:29 Alma Estevez T[place] CL[place] 350.1.13.10 ity of Visit REGIONAL 4.2.7.2.686 Dwayne as MATERNAL [id number] [facility] & [address] 2022-01-30 2022-01-30 Outpatient X MARCO RUST MARGOT [id number] Univers 15:44:00 17:50:00 DENNYS hammonds [facility] 2022-01-30 2022-01-30 Emergency Areli Patel [facility] 1.2.8 40.114 [id number] Univers 15:44:00 17:50:00 [facility]ennys [facility] 350.1.13.10 ity [facility] 4.2.7.2.686 [place] [facility] [id number] [address] 2022-01-29 2022-01-29 Outpatient R GIULIANO [facility] [id number] Univers 14:45:00 15:15:50 RADHA hammonds [facility] 2022-01-29 2022-01-29 Routine Provider, Reddy-Rmchp [facility] 1 .2.840.114 [id number] Univers 14:45:00 15:15:50 Radha Nobles TREE CLIMBER 350.1.13. 10 ity of Visit REGIONAL 4.2.7.2.686 Dwayne as MATERNAL [id number] [facility] & CHILD [address] [place] [address] 2022-01-27 2022-01-27 Outpatient R IRMA [facility] [id number] Univers 13:00:00 14:16:53 ALMA hammonds o f [facility] 2022-01-27 2022-01-27 Routine Akinsipe, RUST 1.2.959.727 [id number] Univers 13:00:00 14:16:53 Alma C TREE CLIMBER 350.1.13.10 ity of Visit REGIONAL 4.2.7.2.686 Dwayne as MATERNAL [id number] [facility] & CHILD [address] [place] [address] 2022 2022 Outpatient R IRMA, [facility] [id number] Univers 15:00:00 15:51:27 ALMA ity o f [facility] 2022 2022 Routine Akinaure, RUST 1.2.042.273 [id number] Univers 15:00:00 15:51:27 Alma C TREE CLIMBER 350.1.13.10 ity of Visit REGIONAL 4.2.7.2.686 Dwayne as MATERNAL [id number] [facility] & [address] 2022-01-21 2022-01-21 Outpatient R GIULIANO [facility] [id number] Univers 10:30:00 10:50:45 RADHA hammonds [facility] 2022-01-21 2022-01-21 Routine Provider, Ember [facility] 1 .2.840.114 [id number] Univers 10:30:00 10:50:45 Radha Nobles TREE CLIMBER 350.1.13. 10 ity of Visit REGIONAL 4.2.7.2.686 Dwayne as MATERNAL [id number] [facility] & [address] 2022-01-16 2022-01-16 Outpatient R ZACHARY [facility] [id number] Univers 13:30:00 14:01:20 AMY hammonds [facility] 2022-01-16 2022-01-16 Routine Risk, Ujg-Vkafg-Vv/High [facility] 1. 2.840.114 [id number] Univers 13:30:00 14:01:20 Amy Sharma TREE CLIMBER 350.1.13.10 ity of Visit REGIONAL 4.2.7.2.686 Dwayne as MATERNAL [id number] [facility] & CHILD [address] [place] [address] 2022-01-15 2022-01-15 Telephone Irma RUST 1.2.840.114 [id number] Univers 00:00:00 00:00:00 Alma Estevez TREE CLIMBER 350.1.13.10 ity of [facility] 4.2.7.2.686 Dwayne as MATERNAL [id number] [facility] & CHILD [address] [place] [address] 2022-01-13 2022-01-13 Outpatient R GIULIANO [facility] [id number] Univers 11:00:00 15:39:45 RADHA hammonds [facility] 2022-01-13 2022-01-13 Routine Provider, [facility] 1 .2.840.114 [id number] Univers 11:00:00 11:15:00 Radha Nobles TREE CLIMBER 350.1.13. 10 ity of Visit [facility] 4.2.7.2.686 [place] as MATERNAL [id number] [address] 2022-01-09 2022-01-09 Neurology Specialist Adri, [facility] 1.2.8 40.114 [id number] Univers 15:00:00 15:15:00 Visit Vira AlenNeal [place] 350.1 .13.10 ity [facility] 4.2.7.2.686 [place] [id number] [place] [address] 2022-01-09 2022-01-09 Outpatient Bryn SINGH [facility] [id number] Univers 13:45:00 14:34:17 KEVIN ity [facility] 2022-01-09 2022-01-09 Routine Risk, Dfx-Puwze-Bo/High [facility] 1. 2.840.114 [id number] Univers 13:45:00 14:34:17 Alma Solis TREE CLIMBER 350.1.13 .10 ity of Visit Kevin Singh [facility] 4.2.7.2.686 [place] MATERNAL [id number] Med [facility] & CHILD [address] [place] [address] 2022-01-07 2022-01-07 Telephone Risk, RUST 1.2.219.875 [id number] Univers 00:00:00 00:00:00 Ang-Rmchp-N TREE CLIMBER 350.1.13.10 ity of p/High [facility]IONAL 4.2.7.2.686 [place]way[place] as MATERNAL [id number] [facility] CHILD [address] [place] [address] 2022-01-06 2022-01-06 Outpatient R VIRA [facility] [id number] Univers 15:30:00 16:45:47 ROLY it y of S, DE JESUS [facility] 2022-01-06 2022-01-06 Telemedici Faculty, Reddy Leechp [facility] 1.2.840.114 [id number] Univers 15:30:00 16:45:47 ne Visit Neal Reed TREE CLIMBER 350.1 .13.10 ity of [facility]IONAL 4.2.7.2.686 Dwayne as MATERNAL [id number] [facility] CHILD [address] [place] [address] 2022-01-06 2022-01-06 Routine Akinsipe, Alma C RUST 1.2.8 40.114 [id number] Univers 14:45:00 15:33:24 Trevre Katz R TREE CLIMBER 350.1.13.1 0 ity of Visit REGIONAL 4.2.7.2.686 Dwayne as MATERNAL [id number] [facility] & CHILD [address] [place] [address] 2022-01-03 2022-01-03 Orders Doctor COLT 1.2.840.114 [id number] Univers 00:00:00 00:00:00 Only Unassigned, PARUL 350.1.13.10 ity of [place] [facility] 4.2.7.2.686 Dwayne as [id number] [address] 2022-01-02 2022-01-02 Outpatient R ALFREDO [facility] [id number] Univers 13:30:00 15:00:16 KEVIN ity [facility] 2022-01-02 2022-01-02 Routine Risk, Hdu-Kwjqm-Yb/High RUST 1. 2.840.114 [id number] Univers 13:30:00 15:00:16 Kevin Singh TREE CLIMBER 350.1.13.10 ity of Visit REGIONAL 4.2.7.2.686 Dwayne as MATERNAL [id number] [facility] CHILD [address] [place] [address] 2022-01-02 2022-01-02 Telephone Akinsipe, RUST 1.2.840.114 [id number] Univers 00:00:00 00:00:00 Alma C TREE CLIMBER 350.1.13.10 ity of [facility]AL 4.2.7.2.686 Dwayne as MATERNAL [id number] [facility] CHILD [address] [place] [address] 2021-12-30 2021-12-30 Routine Akinsipe, RUST 1.2.057.089 [id number] Univers 15:30:00 15:45:00 Alma C TREE CLIMBER 350.1.13.10 ity of Visit REGIONAL 4.2.7.2.686 Dwayne as MATERNAL [id number] [facility] & CHILD [address] [place] [address] 2021-12-30 2021-12-30 Outpatient R AKINSIPE, [facility] [id number] Univers 15:30:00 15:30:00 ALMA ity o [facility] 2021-12-17 2021-12-17 Outpatient R AKINSIPE, [facility] [id number] Univers 14:00:00 15:10:22 ALMA ity o f [facility] 2021-12-17 2021-12-17 Routine Akinsipe, RUST 1.2.202.473 [id number] Univers 14:00:00 15:10:22 Alma C TREE CLIMBER 350.1.13.10 ity of Visit REGIONAL 4.2.7.2.686 Dwayne as MATERNAL [id number] [facility] & CHILD [address] [place] [address] 2021-12-13 2021-12-13 Outpatient R AKINSIPE, [facility] [id number] Univers 09:15:00 09:15:00 ALMA ity o f [facility] 2021-12-10 2021-12-10 Telephone Akinsipe, [facility] 1.2.840.114 [id number] Univers 00:00:00 00:00:00 Alma Estevez TREE CLIMBER 350.1.13.10 ity of [facility] 4.2.7.2.686 Dwayne as MATERNAL [id number] [facility] ical & CHILD [address] [place] [address] 2021-12-05 2021-12-05 Abstract [facility] 1.2.840.114 [id number] Univers 00:00:00 00:00:00 Alma C TREE CLIMBER 350.1.13.10 ity of [facility] 4.2.7.2.686 Dwayne as MATERNAL [id number] [facility] & CHILD [address] [place] [address] 2021-12-01 2021-12-01 Out[facility] M[facility] [id number] Univers 14:52:00 18:22:00 LUKE ity [facility] 2021-12-01 2021-12-01 COLT Dobbs 1.2.003.922 [id number] Univers 14:52:00 18:22:00 Encounter Luke CAT 350.1.13.10 ity of [facility] 4.2.7.2.686 Dwayne as [id number] [facility] [address] 2021-11-30 2021-11-30 Emergency [facility] [id number] Univers 11:50:00 12:13:00 [facility] 2021-11-30 2021-11-30 Emergency [facility] 1.2.840.114 [id number] Univers 11:50:00 12:13:00 Areli GUTIERREZ 350.1.13.10 ity [facility] 4.2.7.2.686 [place] [facility] [id number] [facility] [address] 2021-11-30 2021-11-30 Letter COLT Wyman 1.2.840.114 [id number] Univers 00:00:00 00:00:00 (Out) Vijaya CAT 350.1.13.10 it y of [facility] 4.2.7.2.686 Dwayne as [id number] [facility] [address] [place] [address] 2021-11-29 2021-11-29 Neurology Specialist Ultrasound, Reddy-Mfm RUST 1.2 .840.114 [id number] Univers 15:15:00 16:00:00 Visit Brittani Katzmary R TREE CLIM[place] 350.1.13.10 ity of Zen Correa [facility] 4.2.7.2.686 [place] MATERNAL [id number] Med ical & CHILD 369 [facility] 2021-11-29 2021-11-29 Outpatient P [facility] [id number] Univers 15:15:00 15:15:00 ity of [facility] 2021-11-29 2021-11-29 Outpatient R GIANNA [facility] [id number] Univers 07:45:00 08:28:49 ROSHUNDA ity o f [facility] 2021-11-29 2021-11-29 Routine [facility] 1.2.840.114 [id number] Univers 07:45:00 08:28:49 Trever Clemente TREE CLIMBER 350.1.13.10 ity of Visit REGIONAL 4.2.7.2.686 Dwayne as MATERNAL [id number] [facility] & CHILD [address] [place] [address] 2021-11-28 2021-11-28 Outpatient R IRMA [facility] [id number] Univers 14:45:00 14:45:00 ALMA ity o f [facility] 2021-11-19 2021-11-19 Telephone [facility] 1.2.840.114 [id number] Univers 00:00:00 00:00:00 Alma C TREE CLIMBER 350.1.13.10 ity of REGIONAL 4.2.7.2.686 Dwayne as MATERNAL [id number] [facility] & CHILD [address] [place] [address] 2021-11-12 2021-11-12 Routine [facility] 1.2.045.439 [id number] Univers 14:45:00 15:00:00 Alma C TREE CLIMBER 350.1.13.10 ity of Visit REGIONAL 4.2.7.2.686 Dwayne as MATERNAL [id number] [facility] ical & CHILD [address] [place] [address] 2021-11-12 2021-11-12 Outpatient R IRMA [facility] [id number] Univers 14:45:00 14:45:00 ALMA pierce [facility] 2021-11-04 2021-11-04 Telemedici Faculty, Reddy [facility] 1.2.840.114 [id number] Univers 15:00:00 15:30:00 ne Visit Anton Renteria TREE CLIMBER 350.1.13.10 ity of [facility] 4.2.7.2.686 Dwayne as MATERNAL [id number] [facility] & CHILD [address] [place] [address] 2021-11-04 2021-11-04 Outpatient P DEXTER [facility] [id number] Univers 15:00:00 15:00:00 ANTON pierce [facility] 2021-10-28 2021-10-28 Outpatient P [facility] [id number] Univers 15:00:00 15:00:00 ity [facility] 2021-10-22 2021-10-22 Abstract [facility] 1.2.840.114 [id number] Univers 00:00:00 00:00:00 Alma Estevez TREE CLIMBER 350.1.13.10 ity of [facility] 4.2.7.2.686 Dwayne as MATERNAL [id number] [facility] & CHILD [address] [place] [address] 2021-10-17 2021-10-17 Neurology Specialist 1, Suzie-[facility] Room RUST 1.2. 840.114 [id number] Univers 14:15:00 16:36:19 Visit Abena Patel TREE CLIMBER 350.1.13.10 ity of [facility] 4.2.7.2.686 Dwayne as MATERNAL [id number] [facility] CHILD 369 [facility] 2021-10-17 2021-10-17 Outpatient P JORGE [facility] [id number] Univers 14:15:00 14:15:00 ABENA hammonds [facility] 2021-10-15 2021-10-15 Outpatient R IRMA [facility] [id number] Univers 13:00:00 13:45:11 ALMA ity o f [facility] 2021-10-15 2021-10-15 Routine Akinsipe, RUST 1.2.202.322 [id number] Univers 13:00:00 13:45:11 Alma C TREE CLIMBER 350.1.13.10 ity of Visit REGIONAL 4.2.7.2.686 Dwayne as MATERNAL [id number] [facility] CHILD [address] [place] [address] 2021-10-11 2021-10-11 Outpatient P [facility] [id number] Univers 14:15:00 14:15:00 ity of [facility] 2021-10-07 2021-10-07 Outpatient R AKINSIPE, [facility] [id number] Univers 12:45:00 13:37:44 ALMA ity o f [facility] 2021-10-07 2021-10-07 Routine Akinsipe, RUST 1.2.625.135 [id number] Univers 12:45:00 13:37:44 Alma C TREE CLIMBER 350.1.13.10 ity of Visit REGIONAL 4.2.7.2.686 Dwayne as MATERNAL [id number] [facility] & [address] 2021-10-07 2021-10-07 Orders Doctor COLT 1.2.840.114 [id number] Univers 00:00:00 00:00:00 Only Unassigned, PARUL 350.1.13.10 ity of [place] [facility] 4.2.7.2.686 Dwayne as [phone] [address] 2021-10-03 2021-10-03 Outpatient R AKINSIPE, [facility] [id number] Univers 16:00:00 16:00:00 ALMA hammonds o [facility] 2021-09-19 2021-09-19 Orders Doctor COLT 1.2.840.114 [id number] Univers 00:00:00 00:00:00 Only Unassigned, PARUL 350.1.13.10 ity of [place] [facility] 4.2.7.2.686 Dwayne as [phone] [address] 2021-09-05 2021-09-05 Outpatient R AKINSIPE, [facility] [id number] Univers 15:30:00 16:02:29 ALMA ity o f [facility] 2021-09-05 2021-09-05 [facility] [id number] Univers 15:30:00 16:02:29 Alma Estevez TREE CLIMBER 350.1.13.10 ity of Visit [facility] 4.2.7.2.686 Dwayne as MATERNAL [phone] Med ical & CHILD [address] [place] [address] 2021-09-02 2021-09-02 Orders Doctor COLT 1.2.840.114 [id number] Univers 00:00:00 00:00:00 Only Unassigned, PARUL 350.1.13.10 ity of [place] [facility] 4.2.7.2.686 Dwayne as [phone] [address] 2021-08-19 2021-08-19 Outpatient R ALICIA [facility] [id number] Univers 15:00:00 15:00:00 LUKE ityolie [facility] 2021-08-19 2021-08-19 [facility] 1.2.840. 114 [id number] Univers 15:00:00 15:00:00 Visit Luke Fish TREE CLIMBER 350.1.13.10 ity of REGIONAL 4.2.7.2.686 Dwayne as MATERNAL [phone] [facility] ical & CHILD [address] [place] [address] 2021-08-19 2021-08-19 Neurology Specialist 1, [facility] 1.2. 840.114 [id number] Univers 14:15:00 14:51:59 Visit Luke Fish T[employer]IM[employer] 350.1.13.10 ity of [facility] 4.2.7.2.686 Dwayne as MATERNAL [phone] [facility] & CHILD [address] [facility] 2021-08-19 2021-08-19 Outpatient P [facility] [id number] Univers 14:15:00 14:15:00 ity [facility] 2021-08-19 2021-08-19 [facility] 1.2.840.114 [id number] Univers 00:00:00 00:00:00 Alma C TREE CLIMBER 350.1.13.10 ity of REGIONAL 4.2.7.2.686 Dwayne as MATERNAL [phone] [facility] & CHILD [address] [place] [address] 2021-08-08 2021-08-08 [facility] [id number] Univers 15:30:00 16:15:10 ALMA ity o [facility] 2021-08-08 2021-08-08 Routine [facility] 1.2.639.041 [id number] Univers 15:30:00 16:15:10 Alma C [place]IM[place] 350.1.13.10 ity of Visit REGIONAL 4.2.7.2.686 Dwayne as MATERNAL [phone] [address] 2021-08-08 2021-08-08 Out[facility] [id number] Univers 15:30:00 16:15:10 ALMA ity o [facility] 2021-08-08 2021-08-08 Outpatient [facility] [id number] Univers 15:30:00 15:30:00 ALMA ity o [facility] 2021-07-25 2021-07-25 Telephone [facility] 1.2.840.114 [id number] Univers 00:00:00 00:00:00 Alma C TREE CLIMBER 350.1.13.10 ity of REGIONAL 4.2.7.2.686 Dwayne as MATERNAL [phone] [facility] & CHILD [address] [place] [address] 2021-07-19 2021-07-19 Orders Doctor GREGORY 1.2.840.114 [id number] Univers 00:00:00 00:00:00 Only Unassigned, PARUL 350.1.13.10 ity of [place] [facility] 4.2.7.2.686 Dwayne as [phone] [address] 2021-07-18 2021-07-18 Outpatient R ZACHARY [facility] [id number] Univers 13:15:00 13:52:24 AMY [facility] 2021-07-18 2021-07-18 Routine Risk, Noi-Ldedq-Wi/High RUST 1. 2.840.114 [id number] Univers 13:15:00 13:52:24 Amy Sharma TREE CLIMBER 350.1.13.10 ity of Visit [facility] 4.2.7.2.686 Dwayne as MATERNAL [phone] [facility] ical & CHILD [address] [place] [address] 2021-07-11 2021-07-11 Out[facility] [id number] Univers 15:00:00 16:21:03 ALMA hammonds o [facility] 2021-07-11 2021-07-11 [facility] 1.2.063.115 [id number] Univers 15:00:00 16:21:03 Alma Estevez T[place] CLIM[place] 350.1.13.10 ity of Visit [facility] 4.2.7.2.686 Dwayne as MATERNAL [phone] [facility] & [address] 2021-07-11 2021-07-11 Outpatient [facility] [id number] Univers 15:00:00 16:21:03 ALMA hammonds o [facility] 2021-07-11 2021-07-11 Orders Doctor GREGORY 1.2.840.114 [id number] Univers 00:00:00 00:00:00 Only UnassignedPARUL 350.1.13.10 ity of [place] [facility] 4.2.7.2.686 Dwayne as [phone] [address] 2021-05-14 2021-05-14 Outpatient RICHARD DYKES [facility] [id number] Univers 10:40:00 10:40:00 RICHARD ANDERSON [facility] 2021-04-27 2021-04-27 Letter COLT Wyman 1.2.840.114 [id number] Univers 00:00:00 00:00:00 (Out) Vijaya CAT 350.1.13.10 it y of [facility] 4.2.7.2.686 Dwayne as [phone] [facility] 019 [place] 2021-04-26 2021-04-26 Emergency X ARIZMENDI RUST ERT [id number] Univers 17:29:00 19:21:00 KIARRA hammonds [facility] 2021-04-26 2021-04-26 Emergency [facility] 1.2.840.114 [id number] Univers 17:29:00 19:21:00 Kiarra GUTIERREZ 350.1.13.10 i ty of [place] 4.2.7.2.686 [facility] [phone] [place] 839834 [place] 2021-04-25 2021-04-25 Outpatient R ANNE [facility] [id number] Univers 09:45:00 09:54:55 ANGELO [facility] 2021-04-25 2021-04-25 Office [facility] 1.2.756.120 [id number] Univers 09:45:00 09:54:55 Visit [facility] 350.1.13.10 it y of [place] 4.2.7.2.686 Dwayne as JORGE?BLEA [phone] [place] maria [address] MEDICAL OFFICE BUILDING 2021-04-18 2021-04-18 Emergency X [facility] ERT [id number] Univers 12:29:00 15:20:00 BERTHA ityolie [facility] 2021-04-18 2021-04-18 Emergency [facility] 1.2.200.971 [id number] Univers 12:29:00 15:20:00 Bertha GUTIERREZ 350.1.13.10 i ty of [place] 4.2.7.2.686 [facility] [id number] [facility] 084 [place] 2021-04-18 2021-04-18 Orders Doctor GREGORY 1.2.840.114 [id number] Univers 00:00:00 00:00:00 Only Unassigned, PARUL 350.1.13.10 ity of [place] [facility] 4.2.7.2.686 Dwayne as [phone] [facility] 009 [place] 2021-04-05 2021-04-05 Telephone Irma RUST 1.2.840.114 [id number] Univers 00:00:00 00:00:00 Alma Estevez TREE CLIMBER 350.1.13.10 ity [facility] 4.2.7.2.686 Dwayne as MATERNAL [phone] Med ical & CHILD 107 [facility] 2021-03-22 2021-03-22 Refill [facility] 1.2.840.114 [id number] Univers 00:00:00 00:00:00 [facility] 350.1.13.10 ity [facility] 4.2.7.2.686 Dwayne as JORGE?BLEA [phone] [address] [facility]ICE [facility] 2021-03-12 2021-03-12 Office [facility] 1.2.840.114 [id number] Univers 16:00:00 16:44:[address] [facility] 350.1.13.10 ity of [place] 4.2.7.2.686 Dwayne as JORGE?BLEA [id number] [address] [facility]ICE [facility] 2021-03-12 2021-03-12 Outpatient Bryn URIARTEERICHARD [facility] [id number] Univers 16:00:00 16:44:59 JUSTIN RICHARD [facility] 2021-03-12 2021-03-12 Outpatient Bryn URIARTEERICHARD [facility] [id number] Univers 16:00:00 16:00:00 RICHARD ANDERSON [facility] 2021-02-26 2021-02-26 Telephone [facility] 1.2.840.114 [id number] Univers 00:00:00 00:00:00 [facility] 350.1.13.10 ity [facility] 4.2.7.2.686 Dwayne as JORGE?BLEA [id number] [address] 2021-02-17 2021-02-17 Emergency X SALAS RUST ERT [id number] Univers 18:01:00 22:48:00 ARMEN [facility] 2021-02-17 2021-02-17 Emergency Raven Goldsmith RUST 1.2.840. 114 [id number] Univers 18:01:00 22:48:00 Armen Rodriguez [place] 350.1.13.10 ity of [place] 4.2.7.2.686 [place] [facility] [id number] [place] 839834 [place] 2021-01-11 2021-01-11 Neurology Specialist Lab, Ang-Rmchp RUST 1.2.840. 114 [id number] Univers 10:24:34 10:39:34 Visit Abena Patel [place] 350.1.13.10 ity of [facility] 4.2.7.2.686 Dwayne as MATERNAL [phone] Med ical & CHILD 107 [facility] 2021-01-11 2021-01-11 Outpatient Bryn [facility] [id number] Univers 10:30:00 10:30:00 ABENA hammonds [facility] 2020-12-21 2020-12-21 Telephone Justin RUST 1.2.840.114 [id number] Univers 00:00:00 00:00:00 [facility] 350.1.13.10 [facility] 4.2.7.2.686 Dwayne as Jorge?Blea [phone] [address] Office [facility] 2020-12-18 2020-12-18 Outpatient Bryn PATEL [facility] [id number] Univers 09:00:00 09:00:00 ABENA hammonds [facility] 2020-11-26 2020-11-26 Office Justin RUST 1.2.840.114 [id number] Univers 07:48:27 09:58:10 Visit [facility] 350.1.13.10 [facility] 4.2.7.2.686 Dwayne as Jorge?Blea [phone] [address] Office Building 2020-11-26 2020-11-26 Outpatient RICHARD DYKES [facility] [id number] Univers 08:00:00 08:00:00 RICHARD ANDERSON [facility] 2020-11-26 2020-11-26 Mihai Anderson RUST 1.2.840.114 [id number] Univers 00:00:00 00:00:00 (Out) [facility] 350.1.13.10 ity [facility] 4.2.7.2.686 Dwayne as Jorge?Blea [phone] Va maria victoriaazalia galalrdo [address] [place] [address] Office [facility] 2020-11-20 2020-11-20 Outpatient RICHARD DYKES [facility] [id number] Univers 08:00:00 08:00:00 RICHARD ANDERSON [facility] 2020-11-14 2020-11-14 Telephone [facility] 1.2.840.114 [id number] Univers 00:00:00 00:00:[address] [facility] 350.1.13.10 ity [facility] 4.2.7.2.686 [place] Profess[place] [phone] Va maria [address] 2020-11-01 2020-11-01 Outpatient Bryn SALINAS [facility] [id number] Univers 14:00:00 14:35:39 [facility] 2020-11-01 2020-11-01 Office [facility] 1.2.840.114 [id number] Univers 13:43:12 14:35:39 Visit Liliana Evelin SPECIALTY 350.1.13.10 ity of C[place] 4.2.7.2.686 [place] C[place] AT [phone] Va maria victoriaazalia BEDOYA [address] [place] [address] 2020-11-01 2020-11-01 Office [facility] 1.2.840.114 [id number] Univers 13:43:12 14:35:39 Visit Liliana Evelin SPECIALTY 350.1.13.10 ity of CARE 4.2.7.2.686 [place] CENTER AT [phone] Va maria victoriaazalia BEDOYA [address] [place] [address] 2020-11-01 2020-11-01 Outpatient Bryn SALINAS [facility] [id number] Univers 14:00:00 14:00:00 LILIANA hammonds [facility] 2020-10-19 2020-10-19 Outpatient RICHARD DYKES [facility] [id number] Univers 08:40:00 08:40:00 RICHARD ANDERSON ity of [facility] 2020-10-18 2020-10-18 [facility] 1.2.840.114 [id number] Univers 12:54:28 23:59:00 Encounter Lauryn Gutierrez 350.1.13.10 ity [facility] 4.2.7.2.686 [place] [facility] [phone] [facility] 804 [place] 2020-10-18 2020-10-18 Outpatient R DESIREE [facility] [id number] Univers 00:00:00 00:00:00 LAURYN hammonds o f [facility] 2020-10-15 2020-10-15 Telephone [facility] 1.2.840.114 [id number] Univers 00:00:00 00:00:00 Abena N [place]IM[place] 350.1.13.10 it y of REGIONAL 4.2.7.2.686 Dwayne as MATERNAL [phone] Med ical & CHILD [address] [place] [address] 2020-10-15 2020-10-15 Telephone [facility] 1.2.840.114 [id number] 00:00:00 00:00:00 Abena N [place] 350.1.13.10 REGIONAL 4.2.7.2.686 MATERNAL [phone] & CHILD [address] [place] [address] 2020-10-12 2020-10-12 Telephone [facility] 1.2.840.114 [id number] Univers 00:00:00 00:00:00 Abena N TREE CLIMBER 350.1.13.10 it y of [facility] 4.2.7.2.686 Dwayne as MATERNAL [id number] Med ical & CHILD [address] [place] [address] 2020-10-12 2020-10-12 Telephone [facility] 1.2.840.114 [id number] 00:00:00 00:00:00 Abena N [place]IM[place] 350.1.13.10 REGIONAL 4.2.7.2.686 MATERNAL [phone] & CHILD 107 [facility] 2020-10-11 2020-10-11 Outpatient R JORGE [facility] [id number] [facility] 15:15:00 15:15:00 ABENA hammonds [facility] 2020-10-11 2020-10-11 Telephone [facility] 1.2.840.114 [id number] Univers 00:00:00 00:00:00 Abena Camarillo TREE CLIMBER 350.1.13.10 it y of REGIONAL 4.2.7.2.686 Dwayne as MATERNAL [phone] [facility] & CHILD [address] [place] [address] 2020-10-11 2020-10-11 Telephone [facility] 1.2.840.114 [id number] 00:00:00 00:00:00 Abena Camarillo TREE CLIM[place] 350.1.13.10 REGIONAL 4.2.7.2.686 MATERNAL [phone] & CHILD [address] [place] [address] 2020-10-09 2020-10-09 Office [facility] 1.2.782.129 [id number] Univers 15:44:08 16:29:53 Visit Abena Camarillo T[place]IM[place] 350.1.13.10 it y of [facility] 4.2.7.2.686 Dwayne as MATERNAL [phone] [facility] & CHILD [address] [place] [address] 2020-10-09 2020-10-09 Office [facility] 1.2.591.386 [id number] 15:44:08 16:29:53 Visit Abena Camarillo T[place]IM[place] 350.1.13.10 REGIONAL 4.2.7.2.686 MATERNAL [phone] & CHILD [address] [place] [address] 2020-10-09 2020-10-09 Outpatient Bryn PATEL [facility] [id number] Univers 15:45:00 15:45:00 ABENA hammonds of [facility] 2020-10-09 2020-10-09 Orders Doctor COLT 1.2.840.114 [id number] Univers 00:00:00 00:00:00 Only Unassigned, PARUL 350.1.13.10 ity of [place] [facility] 4.2.7.2.686 Dwayne as [phone] [address] 2020-10-08 2020-10-08 Transition Julio Grant 1.2.840.114 [id number] Univers 00:00:00 00:00:00 of Care Mesfin Pozoy 350.1.13.10 ity of [place].2.7.2.686 [place] [id number] [facility] 403 Branch 2020-10-01 2020-10-05 Hospital Mary Rios 1.2.840.114 [id number] Univers 09:39:00 10:22:00 Encounter S Parul 350.1.13.10 ity of Hospital 4.2.7.2.686 Dwayne as [id number] [facility] 098 Branch 2020-10-01 2020-10-01 Outpatient R KEVINMARY [facility] [id number] Univers 08:30:00 08:30:00 ity of [facility] 2020-10-01 2020-10-01 Orders Doctor COLT 1.2.840.114 [id number] Univers 00:00:00 00:00:00 Only Unassigned, PARUL 350.1.13.10 ity of [place] [facility] 4.2.7.2.686 Dwayne as [phone] [facility] 009 Branch 2020-09-30 2020-09-30 Orders Doctor COLT 1.2.840.114 [id number] Univers 00:00:00 00:00:00 Only Unassigned, PARUL 350.1.13.10 ity of [place] [facility]ITAL 4.2.7.2.686 Dwayne as [id number] [facility] 009 [place] 2020-09-28 2020-09-28 Outpatient R JORGE [facility] [id number] Univers 09:30:00 09:30:00 ABENA ity of [facility] 2020-09-26 2020-09-26 Laboratory Only, Adc Test RUST 1.2.840. 114 [id number] Univers 12:05:49 12:20:49 Only Mary Rios Piyush Milton 350.1.13.10 ity of [place].2.7.2.686 [place] [phone] [facility] 353 Branch 2020-09-26 2020-09-26 Outpatient R [facility] [id number] Univers 12:00:00 12:00:00 ity of [facility] 2020-09-26 2020-09-26 Orders Doctor COLT 1.2.840.114 [id number] Univers 00:00:00 00:00:00 Only Unassigned, PARUL 350.1.13.10 ity of [place] [facility] 4.2.7.2.686 Dwayne as [phone] [facility] 009 Branch 2020-09-21 2020-09-21 Outpatient R RICHARD ANDERSON [facility] [id number] Univers 10:00:00 10:00:00 RICHARD ANDERSON ity of [facility] 2020-09-14 2020-09-15 Emergency Glenis, TRAUMA 1.2.880.171 [id number] Univers 21:58:00 00:49:00 Cheo MOORE 350.1.13.10 ity [place]2.7.2.686 [place] [phone] [facility] 014 Branch 2020-09-12 2020-09-13 Emergency Peace [place] RUST 1.2.840.114 [id number] Univers 19:41:00 00:37:00 Yulia Gutierrez 350.1.13.10 i ty of [place] 4.2.7.2.686 [place] [id number] [facility] 084 Branch 2020-09-12 2020-09-12 Telephone Justin RUST 1.2.840.114 [id number] Univers 00:00:00 00:00:00 Richard Gutierrez 350.1.13.10 ity of [place].2.7.2.686 [place] Profess[place] [phone] [facility] 092 Branch [facility] 2020-09-11 2020-09-11 Emergency [facility] 1.2.629.801 [id number] Univers 20:23:00 22:08:00 Wong Gutierrez 350.1.13.10 i ty of [place] 4.2.7.2.686 [place] [phone] [facility] 084 Branch 2020-08-31 2020-08-31 Emergency [place] RUST 1.2.840.114 [id number] Univers 11:19:00 13:58:00 Yulia Milton 350.1.13.10 i ty of [place] 4.2.7.2.686 [facility] [id number] [address] 2020-08-29 2020-08-29 Emergency [place] RUST 1.2.840.114 [id number] Univers 20:48:00 23:11:00 Yulia Milton 350.1.13.10 i ty of [place] 4.2.7.2.686 [facility] [phone] [address] 2020-06-07 2020-06-07 Office Irma RUST 1.2.646.863 [id number] Univers 10:50:31 11:18:03 Visit Alma Estevez T[place]IM[place] 350.1.13.10 ity of [facility] 4.2.7.2.686 Dwayne as MATERNAL [phone] Med ical & CHILD 107 [facility] 2020-06-07 2020-06-07 Outpatient R IRMA [facility] [id number] Univers 11:00:00 11:00:00 ALMA pierce [facility] 2020-05-29 2020-05-29 Patient Alfred RUST 1.2.840.114 [id number] Univers 00:00:00 00:00:00 Outreach Santosh [facility] 350.1.13.10 i ty of [facility] 4.2.7.2.686 [facility] [phone] [place] dical [address] [place] 2020-05-13 2020-05-13 Emergency [place] RUST 1.2.840.114 [id number] Univers 19:12:00 21:45:00 [facility] 350.1.13.10 i ty of [place] 4.2.7.2.686 [facility] [phone] [address] 2020-05-13 2020-05-13 Orders Doctor COLT 1.2.840.114 [id number] Univers 00:00:00 00:00:00 Only Unassigned, PARUL 350.1.13.10 ity of [place] [facility] 4.2.7.2.686 Dwayne as [phone] [address] 2020-01-19 2020-01-19 Telephone Visit, RUST 1.2.607.245 [id number] Univers 00:00:00 00:00:00 [facility] 350.1.13.10 ity of Nurse [facility] 4.2.7.2.686 Dwayne as MATERNAL [id number] [facility] CHILD [address] [place] [address] 2020-01-17 2020-01-17 Office [facility] 1.2.840.114 [id number] Univers 13:39:45 14:25:08 Visit Trever Clemente TREE CLIM[place] 350.1.13.10 ity of [facility] 4.2.7.2.686 Dwayne as MATERNAL [phone] [address] 2020-01-17 2020-01-17 Out[facility] [id number] Univers 13:45:00 13:45:00 [facility] ity o f [facility] 2020-01-16 2020-01-16 Telephone [facility] 1.2.181.786 [id number] Univers 00:00:00 00:00:00 Nimaa R TREE CLIMBER 350.1.13.10 ity of [facility] 4.2.7.2.686 [place]wayne as MATERNAL [phone] [address] 2019-12-30 2019-12-30 Nurse [facility] RUST 1.2 .840.114 [id number] Univers 10:22:21 10:37:21 Visit Abena Patel [place] 350.1.13.10 ity of [facility] 4.2.7.2.686 Dwayne as MATERNAL [phone] [facility] & CHILD [address] [place] [address] 2019-12-30 2019-12-30 Outpatient R [facility] [id number] Univers 10:30:00 10:30:00 ity of [facility] 2019-12-21 2019-12-21 Telephone [facility] 1.2.296.255 [id number] Univers 00:00:00 00:00:00 Lunda R TREE CLIM[place] 350.1.13.10 ity of [facility] 4.2.7.2.686 Dwayne as MATERNAL [phone] Med ical & CHILD [address] [place] [address] 2019-12-20 2019-12-20 [facility] 1.2.840.114 [id number] Univers 13:03:11 13:55:34 Visit Trever Clemente TREE CLIMBER 350.1.13.10 ity of REGIONAL 4.2.7.2.686 Dwayne as MATERNAL [id number] Med ical & CHILD [address] [place] [address] 2019-12-20 2019-12-20 Outpatient [facility] [id number] Univers 12:45:00 12:45:00 TREVER hammonds o f [facility] 2019-10-24 2019-10-24 Telephone [facility] 1.2.840.114 [id number] Univers 00:00:00 00:00:00 Abena aCmarillo TREE CLIMBER 350.1.13.10 it y of REGIONAL 4.2.7.2.686 Dwayne as MATERNAL [phone] [facility] [address] [place] [address] 2019-10-17 2019-10-17 Outpatient R [facility] [id number] Univers 15:00:00 15:00:00 ityolie [facility] 2019-09-28 2019-09-28 Telephone [facility] 1.2.840.114 [id number] Univers 00:00:00 00:00:00 Abena Camarillo TREE CLIMBER 350.1.13.10 it y of REGIONAL 4.2.7.2.686 Dwayne as MATERNAL [phone] Med ical & CHILD [address] [place] [address] 2019-09-27 2019-09-27 Office [facility] 1.2.485.132 [id number] Univers 14:03:06 14:59:44 Visit Abena Camarillo T[place] 350.1.13.10 it y of [facility] 4.2.7.2.686 Dwayne as MATERNAL [phone] Med ical & CHILD [address] [place] [address] 2019-09-27 2019-09-27 Outpatient R [facility] [id number] Univers 14:00:00 14:00:00 ABENA hammonds [facility] 2019-08-26 2019-08-26 Neurology Specialist Lab, Ang-Rmchp RUST 1.2.840. 114 [id number] Univers 12:52:43 13:06:01 Visit Alma Solis T[place] 350.1.13. 10 ity of [facility] 4.2.7.2.686 Dwayne as MATERNAL [id number] Med ical & CHILD [address] [place] [address] 2019-08-26 2019-08-26 Outpatient R IRMA [facility] [id number] Univers 13:00:00 13:00:00 ALMA garciay o f [facility] 2019-08-19 2019-08-19 Outpatient R [facility] [id number] Univers 13:00:00 13:00:00 ity [facility] 2019-08-18 2019-08-18 Outpatient R [facility] [id number] Univers 13:00:00 13:00:00 ity [facility] 2019-08-18 2019-08-18 Emergency [facility] [id number] Univers 08:24:15 11:52:00 RAVEN ity [facility] 2019-08-18 2019-08-18 Emergency [facility] 1.2.204.126 [id number] Univers 08:24:15 11:52:00 Raven Gutierrez 350.1.13.10 i ty of [place] [address].2.7.2.686 [facility] [id number] [facility] 084 [place] 2019-08-18 2019-08-18 Orders Doctor GREGORY 1.2.840.114 [id number] Univers 00:00:00 00:00:00 Only UnassignedPARUL 350.1.13.10 ity of [place] [facility] 4.2.7.2.686 Dwayne as [id number] [facility] 009 [place] 2019-07-31 2019-07-31 Telephone COLT Miramontes 1.2.943.978 [id number] Univers 00:00:00 00:00:00 Kevin CAT 350.1.13.10 i ty of [facility] 4.2.7.2.686 Dwayne as [phone] [facility] 019 [place] 2019-07-28 2019-07-29 Emergency X NICK RUST ERT [id number] Univers 18:06:33 00:02:00 [facility] 2019-07-28 2019-07-29 Emergency Nick RUST 1.2.840.114 [id number] Univers 18:06:33 00:02:00 [facility] 350.1.13.10 i ty of [place].7.2.[place] [phone] [place] [id number] Branch 2019-07-18 2019-07-18 [facility] [id number] Univers 12:55:14 14:20:25 ne Visit Alma C [employer] [id number] ity of REGIONAL [id number] Dwayne as MATERNAL [phone] Med ical & CHILD [address] [place] [address] 2019-07-18 2019-07-18 [facility] [id number] Univers 14:00:00 14:00:00 ALMA garciay o f [facility] 2019-06-27 2019-06-27 Outpatient R [facility] [id number] Univers 15:30:00 15:30:00 ity of [facility] 2019-06-26 2019-06-26 [facility] [id number] Univers 19:06:29 21:03:00 LORY ity [facility] 2019-06-26 2019-06-26 [facility] 1.2.840.114 [id number] Univers 19:06:29 21:03:00 [facility] [id number] [place]y [id number] [id number] [facility] 014 Branch (CLC) 2019-06-26 2019-06-26 Telephone [facility] 1.2.840.114 [id number] Univers 00:00:00 00:00:00 Alma C [employer] [id number] ity of REGIONAL [id number] Dwayne as MATERNAL [phone] [facility] ical & CHILD [address] [place] [address] 2019-06-24 2019-06-24 Outpatient R [facility] [id number] Univers 09:30:00 09:30:00 ity of [facility] 2019-06-23 2019-06-23 [facility] 1.2.840.114 [id number] Univers 12:57:38 15:49:57 ne Visit Alma Estevez [employer] [id number] ity of [facility] [id number] [place]wayne as MATERNAL [phone] [facility] & CHILD [address] [place], [place] [address] 2019-06-23 2019-06-23 [facility] [id number] Univers 15:30:00 15:30:00 ALMA hammonds o f [facility] 2019-06-22 2019-06-22 Outpatient R JORGE [facility] [id number] Univers 13:30:00 13:30:00 ABENA hammonds [facility] 2019-06-22 2019-06-22 Telephone Visit, [facility] [id number] Univers 00:00:00 00:00:00 Merged With [facility] TREE CLIMBER 350.1.13.10 ity of Nurse [facility] 4.2.7.2.686 Dwayne as MATERNAL [id number] [facility] & CHILD [address] [place] [address] 2019-06-22 2019-06-22 Refill Doctor [facility] 1.2.840.114 [id number] Univers 00:00:00 00:00:00 Unassigned, TREE CLIMBER 350.1.13.10 ity of [place] [facility] 4.2.7.2.686 Dwayne as MATERNAL [id number] [facility] & CHILD [address] [place] [address] 2019-06-21 2019-06-21 Neurology Specialist Lab, [facility] 1.2.840. 114 [id number] Univers 13:00:32 13:15:32 Visit Alma Solis TREE CLIMBER 350.1.13. 10 ity of [facility] 4.2.7.2.686 Dwayne as MATERNAL [id number] [facility] & CHILD [address] [place] [address] 2019-06-21 2019-06-21 [facility] [id number] Univers 10:30:00 10:30:00 ALMA hammonds o kari [facility] 2019-06-21 2019-06-21 Telephone [facility] 1.2.840.114 [id number] Univers 00:00:00 00:00:00 Abena N TREE CLIMBER 350.1.13.10 it y of REGIONAL 4.2.7.2.686 Dwayne as MATERNAL [phone] [facility] ical & CHILD [address] [place] [address] 2019-06-20 2019-06-20 Telephone [facility] 1.2.840.114 [id number] Univers 00:00:00 00:00:00 Abena N TREE CLIMBER 350.1.13.10 it y of REGIONAL 4.2.7.2.686 Dwayne as MATERNAL [id number] [facility] & CHILD [address] [place] [address] 2019-06-10 2019-06-10 Telephone [facility] 1.2.840.114 [id number] Univers 00:00:00 00:00:00 Abena N TREE CLIMBER 350.1.13.10 it y of REGIONAL 4.2.7.2.686 Dwayne as MATERNAL [phone] [facility] & CHILD [address] [place] [address] 2019-05-20 2019-05-20 Telephone [facility] 1.2.840.114 [id number] Univers 00:00:00 00:00:00 Abena N TREE CLIMBER 350.1.13.10 it y of REGIONAL 4.2.7.2.686 Dwayne as MATERNAL [id number] [facility] & CHILD [address] [place] [address] 2019-05-19 2019-05-19 Telephone [facility] 1.2.840.114 [id number] Univers 00:00:00 00:00:00 Abena N [place] CLIM[place] 350.1.13.10 it y of [facility] 4.2.7.2.686 Dwayne as MATERNAL [id number] [facility] ical & CHILD [address] [place] [address] 2019-05-17 2019-05-17 Office [facility] [id number] Univers 13:24:09 13:50:08 Visit Abena N [place] 350.1.13.10 it y of REGIONAL 4.2.7.2.686 Dwayne as MATERNAL [id number] [facility] CHILD [address] [place] [address] 2019-05-17 2019-05-17 Outpatient R JORGE [facility] [id number] Univers 13:30:00 13:30:00 ABENA ityolie of [facility] 2019-05-06 2019-05-06 Outpatient R GIANNA [facility] [id number] Univers 08:15:00 08:15:00 ROSBELINDANDKel ity o f [facility] 2019-04-20 2019-04-20 Emergency Kwaku, Peace [facility] 1.2.840.114 [id number] Univers 11:02:10 14:18:00 Yulia Milton 350.1.13.10 i ty [facility] 4.2.7.2.686 [facility] [id number] [address] 2019-03-29 2019-03-29 [facility]phone [facility] 1.2.809.340 [id number] Univers 00:00:00 00:00:00 Rosnda R TREE CLIMBER 350.1.13.10 ity of [facility] 4.2.7.2.686 Dwayne as MATERNAL [phone] [address] 2019-03-22 2019-03-22 Telephone [facility] 1.2.980.953 [id number] Univers 00:00:00 00:00:00 Rosbelindanda R [place] CLIM[place] 350.1.13.10 ity of [facility] 4.2.7.2.686 Dwayne as MATERNAL [id number] [facility] & [address] 2019-03-21 2019-03-21 Office [facility] 1.2.840.114 [id number] Univers 15:39:38 16:25:05 Visit Rosbelindanda R [place]REE CLIM[place] 350.1.13.10 ity of [facility] 4.2.7.2.686 Dwayne as MATERNAL [id number] [facility] & CHILD [address] [place] [address] Results Test Description Test Time Test Comments Results Result Comments Source POCT URINALYSIS W SPECIFIC GRAVITY 2022-08-07 20:46:00 Test Item Value Reference Range Interpretation Comme [...] POCT U GLU (test code = 3256) neg Negative - Negative POCT U KETONE (test code = 3258) . Negative - Negative POCT U UROBILI (test code = 3260) . 0.2-1 POCT U BILI (test code = 3261) . Negative - Negative POCT U BLD (test code = 3257) . Negative - Negative POCT U COLOR (test code = 3266) . POCT U APPEAR (test code = 3267) . [facility] METABOLIC PANEL (NA, K, CL, CO2, GLUCOSE, BUN, CREATININE, CA)2022-07-15 20:01:56 Test Item Value Reference Range Interpretation Comments NA (test code = 137 mmol/L 135-145 7297908417) K (test code = 4.1 mmol/L 3.5-5.0 4951605494) CL (test code = 104 mmol/L 98-108 3296044456) CO2 TOTAL (test code = 21 mmol/L 23-31 L 6971743044) AGAP (test code = 12 2-16 5022945652) BUN (test code = 4 mg/dL 7-23 L 5203069585) GLUCOSE (test code = 84 mg/dL 70-110 6967818863) CREATININE (test code = 0.43 mg/dL 0.50-1.04 L 4388905355) CALCIUM (test code = 9.4 mg/dL 8.6-10.6 3224250157) eGFR (test code = 178.9 mL/min/1.73m2 0764875601) MARCELLE (test code = MARCELLE) Association of [...] tests). Lab Interpretation Abnormal (test code = 61164-7) [facility] WITH [id number] 19:50:53 Test Item Value Reference Range Interpretation Comments WBC (test code = 9.07 See_Comment [Automated 3083-2) message] The sy stem which generated this result transmitted reference range : 4.30 - 11.10 10*3/?L. The reference range was not used to interpret this result as normal/abnormal . RBC (test code = 4.88 See_Comment [Automated 603-8) message] The sy stem which generated this result transmitted reference range : 3.93 - 5.25 10*6/?L. The reference range was not used to interpret this result as normal/abnormal . HGB (test code = 12.9 g/dL 11.6-15.0 718-7) HCT (test code = 39.8 % 35.7-45.2 4544-3) MCV (test code = 81.6 fL 80.6-95.5 787-2) MCH (test code = 26.4 pg 25.9-32.8 785-6) MCHC (test code = 32.4 g/dL 31.6-35.1 786-4) RDW-SD (test code = 43.8 fL 39.0-49.9 85320-5) RDW-CV (test code = 14.8 % 12.0-15.5 788-0) PLT (test code = 302 See_Comment [Automated 777-3) message] The sy stem which generated this result transmitted reference range : 166 - 358 10*3/ ?L. The reference r david was not used to interpret this result as normal/abnormal . MPV (test code = 9.7 fL 9.5-12.9 10616-6) NRBC/100 WBC (test 0.0 See_Comment [Automat ed code = 0550964010) message] The system which generated this result transmitted reference range : 0.0 - 10.0 /100 WBCs. The refer ence range was not u sed to interpret th is result as normal/abnormal . NRBC x10^3 (test code See_Comment [Auto mated = 8953885424) message] The s ystem which generated this result transmitted reference range : 10*3/?L. The reference range was not used to interpret this result as normal/abnormal . GRAN MAT (NEUT) % 62.8 % (test code = 770-8) IMM GRAN % (test code 1.00 % = 2205134294) LYMPH % (test code = 28.6 % 736-9) MONO % (test code = 6.2 % 5905-5) EOS % (test code = 1.2 % 713-8) BASO % (test code = 0.2 % 706-2) GRAN MAT x10^3(ANC) 5.70 10*3/uL 1.88-7.09 (test code = 6906170642) IMM GRAN x10^3 (test 0.09 10*3/uL 0.00-0.06 H code = 9911858414) LYMPH x10^3 (test code 2.59 10*3/uL 1.32-3.29 = 731-0) MONO x10^3 (test code 0.56 10*3/uL 0.33-0.92 = 742-7) EOS x10^3 (test code = 0.11 10*3/uL 0.03-0.39 711-2) BASO x10^3 (test code 0.01-0.07 = 704-7) Lab Interpretation Abnormal (test code = 20028-7) [facility] URINALYSIS W SPECIFIC [id number] 20:59:00 Test Item Value Reference Range Interpretation Comments [...] 3258) None Negative - Negative POCT U UROBILI (test code = 3260) . 0.2-1 POCT U BILI (test code = 3261) . Negative - Negative POCT U BLD (test code = 3257) Trace Negative - Negative POCT U COLOR (test code = 3266) POCT U APPEAR (test code = 3267) [facility] URINALYSIS W SPECIFIC [id number] 20:59:00 Test Item Value Reference Range Interpretation Comments [...] 3258) None Negative - Negative POCT U UROBILI (test code = 3260) . 0.2-1 POCT U BILI (test code = 3261) . Negative - Negative POCT U BLD (test code = 3257) Trace Negative - Negative POCT U COLOR (test code = 3266) POCT U APPEAR (test code = 3267) [facility] URINALYSIS W SPECIFIC [id number] 20:59:00 Test Item Value Reference Range Interpretation Comments [...] 3258) None Negative - Negative POCT U UROBILI (test code = 3260) . 0.2-1 POCT U BILI (test code = 3261) . Negative - Negative POCT U BLD (test code = 3257) Trace Negative - Negative POCT U COLOR (test code = 3266) POCT U APPEAR (test code = 3267) [facility] URINALYSIS W/O SPECIFIC [id number] 19:18:00 Test Item Value Reference Range Interpretation Comments [...] code = 3257) NEG Negative - Negative [facility] [id number] 19:17:00 Test Item Value Reference Range Interpretation Comments POCT PREG (test code = 1605) Positive On board controls acceptable with C Yes Line (test code = 3574) POCT PREG LOT # (test code = 3575) POCT PREG TEST DATE (test code = 3576) [facility] [id number] 05:04:00 Test Item Value Reference Range Interpretation Comments POCT PREG (test code = 1605) negative On board controls acceptable with present C Line (test code = 3574) POCT PREG LOT # (test code = 3575) [id number] POCT PREG TEST DATE (test 2023-08-07 code = 3576) Lab Interpretation (test code = Normal 53754-4) [facility]. METABOLIC PANEL (05470)2022-04-22 04:55:23 Test Item Value Reference Range Interpretation Comments NA (test code = 135 mmol/L 135-145 6050347026) K (test code = 4.0 mmol/L 3.5-5.0 8148645473) CL (test code = 105 mmol/L 98-108 5499546732) CO2 TOTAL (test code = 24 mmol/L 23-31 7905892918) AGAP (test code = 6 2-16 7837804672) BUN (test code = 12 mg/dL 7-23 9046164318) GLUCOSE (test code = 117 mg/dL 70-110 H 5014898711) CREATININE (test code = 0.50 mg/dL 0.50-1.04 5823768132) TOTAL BILI (test code = 0.5 mg/dL 0.1-1.5 9518830698) CALCIUM (test code = 8.6 mg/dL 8.6-10.6 8108317128) T PROTEIN (test code = 6.3 g/dL 6.3-8.2 3198510623) ALBUMIN (test code = 4.0 g/dL 3.5-5.0 9324250703) ALK PHOS (test code = 71 U/L 34-122 0900454875) ALTv (test code = 25 U/L 5-35 1742-6) AST(SGOT) (test code = 30 U/L 13-40 4102832387) eGFR (test code = 150.3 mL/min/1.73m2 0005264925) MARCELLE (test code = MARCELLE) Association of [...] tests). Lab Interpretation Abnormal (test code = 05002-2) [facility] WITH [id number] 04:43:57 Test Item Value Reference Range Interpretation Comments WBC (test code = 8.83 See_Comment [Automated 2445-2) message] The sy stem which generated this result transmitted reference range : 4.30 - 11.10 10*3/?L. The reference range was not used to interpret this result as normal/abnormal . RBC (test code = 4.30 See_Comment [Automated 643-8) message] The sy stem which generated this [...] RDW-SD (test code = 44.5 fL 39.0-49.9 55810-7) RDW-CV (test code = 15.0 % 12.0-15.5 788-0) PLT (test code = 270 See_Comment [Automated 867-3) message] The sy stem which generated this result transmitted reference range : 166 - 358 10*3/ ?L. The reference r david was not used to interpret this result as normal/abnormal . MPV (test code = 10.5 fL 9.5-12.9 01911-0) NRBC/100 WBC (test 0.0 See_Comment [Automat ed code = 0362632399) message] The system which generated this result transmitted reference range : 0.0 - 10.0 /100 WBCs. The refer ence range was not u sed to interpret th is result as normal/abnormal . NRBC x10^3 (test code See_Comment [Auto mated = 4293374948) message] The s ystem which generated this result transmitted reference range : 10*3/?L. The reference range was not used to interpret this result as normal/abnormal . GRAN MAT (NEUT) % 54.9 % (test code = 770-8) IMM GRAN % (test code 0.60 % = 9270386377) LYMPH % (test code = 35.8 % 736-9) MONO % (test code = 6.5 % 5905-5) EOS % (test code = 1.7 % 713-8) BASO % (test code = 0.5 % 706-2) GRAN MAT x10^3(ANC) 4.86 10*3/uL 1.88-7.09 (test code = 9441798010) IMM GRAN x10^3 (test 0.05 10*3/uL 0.00-0.06 code = 8643932604) LYMPH x10^3 (test code 3.16 10*3/uL 1.32-3.29 = 731-0) MONO x10^3 (test code 0.57 10*3/uL 0.33-0.92 = 742-7) EOS x10^3 (test code = 0.15 10*3/uL 0.03-0.39 711-2) BASO x10^3 (test code 0.04 10*3/uL 0.01-0.07 = 704-7) Lab Interpretation Abnormal (test code = 49439-5) [facility] [id number] 20:36:00 Test Item Value Reference Range Interpretation Comments ABO & RH (test code O Negative Performe d at [facility] = 20) Laboratory Serv [facility] [address] [place] [phone] Free: [phone] A No. [id number] IAT (test code = Positive Performed a t [facility] 1185) Laboratory Serv [facility] [address] [place] [address]Mtpf Free: [phone] A No. [id number] [facility]2022-12-11 19:33:27 Test Item Value Reference Range Interpretation Comments MAGNESIUM (test code = 1833594410) 2.0 mg/dL 1.7-2.4 Lab Interpretation (test code = Normal 26127-5) [facility] [id number] 19:16:05 Test Item Value Reference Interpretation Comments Range TROPONIN I (test 0.001 ng/mL See_Comment [Automated code = 3616872943) message] The system which generated this result [...] biotin. Lab Interpretation Normal (test code = 43749-6) [facility] [id number] 19:13:04 Test Item Value Reference Range Interpretation Comments NT-proBNP (test code 189 pg/mL See_Comment H [Autom ated = 3649180517) message] The system which generated this result transmitted reference range : <=125. The reference range was not used to interpret this result as normal/abnormal . MARCELLE (test code = MARCELLE) Biotin has been reported to cause a negative bias, interpret results relative to patient's use of biotin. Lab Interpretation Abnormal (test code = 87099-0) [facility]. METABOLIC PANEL (70377)2022-02-16 19:04:06 Test Item Value Reference Range Interpretation Comments NA (test code = 139 mmol/L 135-145 8489480841) K (test code = 4.0 mmol/L 3.5-5.0 7996397856) CL (test code = 110 mmol/L 98-108 H 6164056311) CO2 TOTAL (test code = 24 mmol/L 23-31 5278686567) AGAP (test code = 2-16 9994799570) BUN (test code = 10 mg/dL 7-23 9366429626) GLUCOSE (test code = 78 mg/dL 70-110 8785141222) CREATININE (test code = 0.49 mg/dL 0.50-1.04 L 4605737622) TOTAL BILI (test code = 0.3 mg/dL 0.1-1.4 1685566041) CALCIUM (test code = 8.7 mg/dL 8.6-10.6 7573378712) T PROTEIN (test code = 5.5 g/dL 6.3-8.2 L 9301083636) ALBUMIN (test code = 3.2 g/dL 3.5-5.0 L 7252242815) ALK PHOS (test code = 126 U/L 34-122 H 6403393743) ALTv (test code = 21 U/L 5-35 1742-6) AST(SGOT) (test code = 30 U/L 13-40 3928230503) eGFR (test code = mL/min/1.73m2 1692162240) MARCELLE (test code = MARCELLE) Association of [...] tests). Lab Interpretation Abnormal (test code = 53874-4) [facility]ACT[facility] THRMPLAS [id number] 19:03:06 Test Item Value Reference Range Interpretation Comments APTT Patient (test See_Comment [Automat ed code = 3173-2) message] The system which generated this result transmitted reference range : 23 - 38 Seconds . The reference range was not used to interpr et this result as normal/abnormal . MARCELLE (test code = MARCELLE) The [facility] patient population mean normal value for aPTT is 30 seconds. Lab Interpretation Normal (test code = 26271-7) [facility] HospitalPROTHROMBIN [facility] / [id number] 19:01:04 Test Item Value Reference Range Interpretation [...] tions. Lab Interpretation (test Normal code = 08373-1) [facility] WITH [id number] 18:49:05 Test Item Value Reference Range Interpretation [...] RDW-SD (test code = 45.1 fL 39.0-49.9 84919-6) RDW-CV (test code = 14.1 % 12.0-15.5 788-0) PLT (test code = See_Comment [Automated 777-3) message] The sy stem which generated this result transmitted reference range : 166 - 358 10*3/ ?L. The reference r david was not used to interpret this result as normal/abnormal . MPV (test code = 10.4 fL 9.5-12.9 36376-5) NRBC/100 WBC (test See_Comment [Automat ed code = 5924071995) message] The system which generated this result transmitted reference range : 0.0 - 10.0 /100 WBCs. The refer ence range was not u sed to interpret th is result as normal/abnormal . NRBC x10^3 (test code See_Comment [Auto mated = 5763200397) message] The s ystem which generated this result transmitted reference range : 10*3/?L. The reference range was not used to interpret this result as normal/abnormal . GRAN MAT (NEUT) % 72.7 % (test code = 770-8) IMM GRAN % (test code 1.30 % = 1254190965) LYMPH % (test code = 16.8 % 736-9) MONO % (test code = 6.7 % 5905-5) EOS % (test code = 2.3 % 713-8) BASO % (test code = 0.2 % 706-2) GRAN MAT x10^3(ANC) 6.67 10*3/uL 1.88-7.09 (test code = 3592165424) IMM GRAN x10^3 (test 0.12 10*3/uL 0.00-0.06 H code = 8532615301) LYMPH x10^3 (test code 1.54 10*3/uL 1.32-3.29 = 731-0) MONO x10^3 (test code 0.61 10*3/uL 0.33-0.92 = 742-7) EOS x10^3 (test code = 0.21 10*3/uL 0.03-0.39 711-2) BASO x10^3 (test code 0.01-0.07 = 704-7) Lab Interpretation Abnormal (test code = 70658-8) [facility] HospitalFET[facility] MATERNAL HEMO [id number] 12:29:12 Test Item Value Reference Range Interpretation Comments SCREEN (test Negative Performed at [facility] code = 846) Laboratory Serv [facility] Blood [address] [place], [place] [address]Mdvd Free: [phone] A No. [id number] RHIG REQUIRED? 1 Syringe baby rh posPe rformed at (test code = 1747) [facility] [address] [facility] [address]Djkz Free: [phone] A No. [id number] [facility] HospitalRHO (D) IMMUNE [id number] 19:43:42 Test Item Value Reference Range Interpretation Comments RHIG CANDIDATE? (test Yes- see A Patien t is a code = 5055) comment candidate for RhIg- Patient i s Rh Negative and baby is Rh Positive.Perfor me d at [facility] Laboratory Services [facility] Blood [address] stubbs [address]Hyxx Free: [phone] A No. [id number] Lab Interpretation Abnormal (test code = 83759-2) [facility] HospitalARTERIAL CORD [id number] 17:18:47 Test Item Value Reference Range Interpretation Comments BASE EXCESS, CORD mEq/L QUES (test code = 4990203076) AC PH, CORD (BEAKER) 7.18-7.38 (test code = 8781737211) PC02, CORD (test code See_Comment [Auto mated message] The = 7465291219) system which g enerated this result transmit con reference range : 32 - 66 mmHg. The refer ence range was not used to interpret this result as normal/abnormal . PO2, CORD (test code See_Comment [Autom ated message] The = 0974934948) system which g enerated this result transmit con reference range : 10 - 30 mmHg. The refer ence range was not used to interpret this result as normal/abnormal . BICARBONATE, CORD See_Comment [Automate d message] The (test code = system which ge nerated this 4728821216) result transmit con reference range : 17 - 27 mEq/L. The refe rence range was not used to interpret this result as normal/abnormal . [facility] HospitalVENOUS CORD [id number] 17:17:10 Test Item Value Reference Range Interpretation Comments VENOUS BASE EXCESS, mEq/L CORD (test code = 7570170948) VENOUS PH, CORD (test 7.25-7.45 code = 5217559373) VENOUS PC02, CORD See_Comment [Automate d message] The (test code = system which ge nerated 5313940429) this result tra nsmitted reference range : 27 - 49 mmHg. The refer ence range was not used to interpret this result as normal/abnormal . VENOUS PO2, CORD (test See_Comment [Aut omated message] The code = 0041875939) system wh ich generated this result tra nsmitted reference range : 17 - 41 mmHg. The refer ence range was not used to interpret this result as normal/abnormal . VENOUS BICARBONATE, See_Comment QUES [Au tomated message] CORD (test code = The system which generated 5826740722) this result tra nsmitted reference range : 12 - 29 mEq/L. The refe rence range was not used to interpret this result as normal/abnormal . [facility] HospitalGAL[facility] ONLY - SYPHILIS [id number] 17:00:56 Test Item Value Reference Range Interpretation Comments Syphilis IgG/IgM (test Non-reactive Non-reactive code = 71934-6) MARCELLE (test code = MARCELLE) Non-reactive - No serologic evidence of T. pallidum infection. Cannot exclude incubating or early syphilis. Submit a second specimen in 2-4 weeks if syphilis is clinically suspected. Equivocal - Further testing to follow. Reactive - Further testing to follow. Lab Interpretation (test Normal code = 08885-5) [facility] HospitalHI 1/2 AG-AB WITH [id number] 02:53:04 Test Item Value Reference Range Interpretation Comments HIV Negative Negative Semi-quantitative (test code = 02361-9) MARCELLE (test code = Non-reactive for HIV-1 MARCELLE) antigen and HIV-1/HIV-2 antibodies. ?No laboratory evidence of HIV infection. ?Repeat in 2-4 weeks if acute HIV infection is suspected. [facility] - ONCE [id number] 01:21:03 Test Item Value Reference Range Interpretation Comments ABO & RH (test code O NEGATIVE Performe d at [facility] = 20) Laboratory Serv [facility]3 [address] [facility] s [address]Xdqx Free: [phone] A No. [id number] IAT (test code = Positive Performed a t [facility] 1185) Laboratory Serv [facility]3 [address] [facility] [address] [address]Ghhj Free: [phone] A No. [id number] [facility] HospitalANTI-D R/O [id number] 01:21:03 Test Item Value Reference Range Interpretation Comments ANTIBODY (test Anti-D Probable RHIG given on code = 683) RhIg 01/02/22Perform ed at [facility] Laborat [facility]y Services - [facility] Blood [address] [facility] s [address]Wdqb Free: [phone] A No. [id number] [facility] HospitalHepatitis B Surface [id number] 00:41:53 Test Item Value Reference Range Interpretation Comments HBsAg Semi-Quantitative (test code = Negative Negative 5195-3) [facility] with [id number] 23:41:21 Test Item Value Reference Range Interpretation [...] RDW-SD (test code = 43.6 fL 39.0-49.9 08318-0) RDW-CV (test code = 14.1 % 12.0-15.5 788-0) PLT (test code = See_Comment [Automated 777-3) message] The sy stem which generated this result transmitted reference range : 166 - 358 10*3/ ?L. The reference r david was not used to interpret this result as normal/abnormal . MPV (test code = 10.8 fL 9.5-12.9 47889-8) NRBC/100 WBC (test See_Comment [Automat ed code = 0618500544) message] The system which generated this result transmitted reference range : 0.0 - 10.0 /100 WBCs. The refer ence range was not u sed to interpret th is result as normal/abnormal . NRBC x10^3 (test code See_Comment [Auto mated = 3363849099) message] The s ystem which generated this result transmitted reference range : 10*3/?L. The reference range was not used to interpret this result as normal/abnormal . GRAN MAT (NEUT) % 64.7 % (test code = 770-8) IMM GRAN % (test code 1.20 % = 3504889553) LYMPH % (test code = 25.1 % 736-9) MONO % (test code = 7.4 % 5905-5) EOS % (test code = 1.3 % 713-8) BASO % (test code = 0.3 % 706-2) GRAN MAT x10^3(ANC) 6.10 10*3/uL 1.88-7.09 (test code = 9968841558) IMM GRAN x10^3 (test 0.11 10*3/uL 0.00-0.06 H code = 6231996324) LYMPH x10^3 (test code 2.36 10*3/uL 1.32-3.29 = 731-0) MONO x10^3 (test code 0.70 10*3/uL 0.33-0.92 = 742-7) EOS x10^3 (test code = 0.12 10*3/uL 0.03-0.39 711-2) BASO x10^3 (test code 0.03 10*3/uL 0.01-0.07 = 704-7) Lab Interpretation Abnormal (test code = 68515-7) [facility] URINALYSIS W SPECIFIC [id number] 20:06:00 Test Item Value Reference Range Interpretation [...] POCT U APPEAR (test code = 3267) [facility] [id number] 22:20:00 Test Item Value Reference Range Interpretation [...] U APPEAR (test code = 3267) . [facility] - ONCE [id number] 23:17:31 Test Item Value Reference Range Interpretation Comments ABO & RH (test code O Negative Performe d at RUST = 20) Laboratory [facility] [address] [place] [address] Free: [phone] A No. [id number] IAT (test code = Positive Performed a t RUST 1185) Laboratory [facility] [address] [place], [place] [address]Toll Free: [phone] A No. [id number] [facility] WITH [id number] 05:45:31 Test Item Value Reference Range Interpretation Comments WBC (test code = See_Comment [Automated 6291-2) message] The sy stem which generated this [...] RDW-SD (test code = 43.4 fL 39.0-49.9 50059-0) RDW-CV (test code = 13.9 % 12.0-15.5 788-0) PLT (test code = See_Comment [Automated 777-3) message] The sy stem which generated this result transmitted reference range : 166 - 358 10*3/ ?L. The reference r david was not used to interpret this result as normal/abnormal . MPV (test code = 11.2 fL 9.5-12.9 18677-9) NRBC/100 WBC (test See_Comment [Automat ed code = 2923047119) message] The system which generated this result transmitted reference range : 0.0 - 10.0 /100 WBCs. The refer ence range was not u sed to interpret th is result as normal/abnormal . NRBC x10^3 (test code See_Comment [Auto mated = 8335029135) message] The s ystem which generated this result transmitted reference range : 10*3/?L. The reference range was not used to interpret this result as normal/abnormal . GRAN MAT (NEUT) % 67.3 % (test code = 770-8) IMM GRAN % (test code 1.00 % = 1239100316) LYMPH % (test code = 23.3 % 736-9) MONO % (test code = 7.1 % 5905-5) EOS % (test code = 1.0 % 713-8) BASO % (test code = 0.3 % 706-2) GRAN MAT x10^3(ANC) 5.85 10*3/uL 1.88-7.09 (test code = 8409675245) IMM GRAN x10^3 (test 0.09 10*3/uL 0.00-0.06 H code = 5964534108) LYMPH x10^3 (test code 2.03 10*3/uL 1.32-3.29 = 731-0) MONO x10^3 (test code 0.62 10*3/uL 0.33-0.92 = 742-7) EOS x10^3 (test code = 0.09 10*3/uL 0.03-0.39 711-2) BASO x10^3 (test code 0.03 10*3/uL 0.01-0.07 = 704-7) Lab Interpretation Abnormal (test code = 19173-6) [facility] WITH [id number] 05:45:31 Test Item Value Reference Range Interpretation Comments WBC (test code = See_Comment [Automated 6890-2) message] The sy stem which generated this result transmitted reference range : 4.30 - 11.10 10*3/?L. The reference range was not used to interpret this result as normal/abnormal . RBC (test code = See_Comment [Automated 995-8) message] The sy stem which generated this [...] RDW-SD (test code = 43.4 fL 39.0-49.9 60218-6) RDW-CV (test code = 13.9 % 12.0-15.5 788-0) PLT (test code = See_Comment [Automated 777-3) message] The sy stem which generated this result transmitted reference range : 166 - 358 10*3/ ?L. The reference r david was not used to interpret this result as normal/abnormal . MPV (test code = 11.2 fL 9.5-12.9 91493-2) NRBC/100 WBC (test See_Comment [Automat ed code = 0103779168) message] The system which generated this result transmitted reference range : 0.0 - 10.0 /100 WBCs. The refer ence range was not u sed to interpret th is result as normal/abnormal . NRBC x10^3 (test code See_Comment [Auto mated = 2775929827) message] The s ystem which generated this result transmitted reference range : 10*3/?L. The reference range was not used to interpret this result as normal/abnormal . GRAN MAT (NEUT) % 67.3 % (test code = 770-8) IMM GRAN % (test code 1.00 % = 7222416607) LYMPH % (test code = 23.3 % 736-9) MONO % (test code = 7.1 % 5905-5) EOS % (test code = 1.0 % 713-8) BASO % (test code = 0.3 % 706-2) GRAN MAT x10^3(ANC) 5.85 10*3/uL 1.88-7.09 (test code = 8026980511) IMM GRAN x10^3 (test 0.09 10*3/uL 0.00-0.06 H code = 9220559658) LYMPH x10^3 (test code 2.03 10*3/uL 1.32-3.29 = 731-0) MONO x10^3 (test code 0.62 10*3/uL 0.33-0.92 = 742-7) EOS x10^3 (test code = 0.09 10*3/uL 0.03-0.39 711-2) BASO x10^3 (test code 0.03 10*3/uL 0.01-0.07 = 704-7) Lab Interpretation Abnormal (test code = 45382-7) [facility] URINALYSIS W SPECIFIC [id number] 20:37:00 Test Item Value Reference Range Interpretation [...] U APPEAR (test code = 3267) clear [facility] URINALYSIS W SPECIFIC [id number] 20:37:00 Test Item Value Reference Range Interpretation [...] U APPEAR (test code = 3267) clear [facility] URINALYSIS W SPECIFIC [id number] 20:37:00 Test Item Value Reference Range Interpretation [...] U APPEAR (test code = 3267) clear [facility] URINALYSIS W SPECIFIC [id number] 19:00:00 Test Item Value Reference Range Interpretation [...] U APPEAR (test code = 3267) . [facility] URINALYSIS W SPECIFIC [id number] 21:06:00 Test Item Value Reference Range Interpretation [...] U APPEAR (test code = 3267) clear [facility] URINALYSIS W SPECIFIC [id number] 16:34:00 Test Item Value Reference Range Interpretation [...] U APPEAR (test code = 3267) clear [facility] URINALYSIS W SPECIFIC [id number] 17:00:00 Test Item Value Reference Range Interpretation [...] U APPEAR (test code = 3267) cloudy [facility] URINALYSIS W SPECIFIC [id number] 18:51:00 Test Item Value Reference Range Interpretation [...] 3267) Lab Interpretation (test code = Abnormal 88024-6) [facility] URINALYSIS W SPECIFIC [id number] 19:16:00 Test Item Value Reference Range Interpretation [...] POCT U APPEAR (test code = 3267) [facility] URINALYSIS W SPECIFIC [id number] 18:26:00 Test Item Value Reference Range Interpretation [...] clear Lab Interpretation (test code = Normal 41046-6) [facility] URINALYSIS W SPECIFIC [id number] 20:47:00 Test Item Value Reference Range Interpretation [...] POCT U APPEAR (test code = 3267) [facility] URINALYSIS W SPECIFIC [id number] 19:47:00 Test Item Value Reference Range Interpretation [...] POCT U APPEAR (test code = 3267) [facility] URINALYSIS W SPECIFIC [id number] 19:47:00 Test Item Value Reference Range Interpretation [...] POCT U APPEAR (test code = 3267) [facility] URINALYSIS W SPECIFIC [id number] 13:14:00 Test Item Value Reference Range Interpretation [...] U APPEAR (test code = 3267) . [facility] URINALYSIS W SPECIFIC [id number] 13:14:00 Test Item Value Reference Range Interpretation [...] U APPEAR (test code = 3267) . [facility] URINALYSIS W SPECIFIC [id number] 13:14:00 Test Item Value Reference Range Interpretation [...] U APPEAR (test code = 3267) . [facility] URINALYSIS W SPECIFIC [id number] 13:14:00 Test Item Value Reference Range Interpretation [...] U APPEAR (test code = 3267) . [facility] URINALYSIS W SPECIFIC [id number] 13:14:00 Test Item Value Reference Range Interpretation [...] U APPEAR (test code = 3267) . [facility] URINALYSIS W SPECIFIC [id number] 13:14:00 Test Item Value Reference Range Interpretation [...] U APPEAR (test code = 3267) . [facility] URINALYSIS W SPECIFIC [id number] 13:14:00 Test Item Value Reference Range Interpretation [...] U APPEAR (test code = 3267) . [facility] URINALYSIS W SPECIFIC [id number] 13:14:00 Test Item Value Reference Range Interpretation [...] U APPEAR (test code = 3267) . [facility] [id number] 13:14:00 Test Item Value Reference Range Interpretation [...] U APPEAR (test code = 3267) . [facility]LITH[facility] [id number] 18:22:00 Test Item Value Reference Range Interpretation Comments LITHIUM LEVEL (BEAKER) 0.8 mmol/L 0.8-1.2 (test code = 630) SCAN RESULT (test code = See Scanned Report [id number]) NC, [id number] 14:13:01Reason for exam:->abnormal imaging [facility] : 1995 Sex: FFluoroscopic unit utilized for a procedure performed in the OR. No interpretation was requested. Refer to the operative report for findings. Refer to PACS for patient radiation dose information.COMPREHENSIVE METABOLIC [id number] 06:43:00 Test Item Value Reference Range Interpretation [...] S NOT APPLICABLE FOR DIALYSIS PATIEN TS. Display Fabrication Supervisor ID - MADISON MCBC (HEMOGRAM ONLY)2020-09-24 [...] (BEAKER) (test code = 413) COMPREHENSIVE METABOLIC [id number] 07:06:00 Test Item Value Reference Range Interpretation [...] S NOT APPLICABLE FOR DIALYSIS PATIEN TS. Display Fabrication Supervisor ID - PIAYA LCBC (HEMOGRAM ONLY)2020-09-23 [...] (BEAKER) (test code = 413) COMPREHENSIVE METABOLIC [id number] 08:27:00 Test Item Value Reference Range Interpretation [...] S NOT APPLICABLE FOR DIALYSIS PATIEN TS. Display Fabrication Supervisor ID - MADISON [id number] 08:27:00 Test Item Value Reference Range Interpretation Comments MAGNESIUM (BEAKER) (test code = 2.4 mg/dL 1.6-2.6 627) Display Fabrication Supervisor ID - MADISON MPROTHROMBIN [id number] 07:59:00 Test Item Value Reference Range Interpretation Comments PROTIME (BEAKER) 13.0 seconds 11.9-14.2 (test code = 759) INR (BEAKER) (test 1.00 See_Comment [Automat ed message] code = 370) The system [employer] generated this result transmitted ref erence range: <=5.90. The reference range was not used to int erpret this result as normal/abnormal . RECOMMENDED COUMADIN/WARFARIN INR THERAPY RANGESSTANDARD DOSE: 2.0 - 3.0 Includes: PROPHYLAXIS for venous thrombosis, systemic embolization; TREATMENT for venous thrombosis and/or pulmonary embolus.HIGH RISK: Target INR is 2.5-3.5 for patients with mechanical heart valves.CBC W/PLT COUNT & AUTO [id number] 07:49:00 Test Item Value Reference Range Interpretation [...]
[2022-08-20] MEDS ORDERED: ACETAMINOPHEN 500 MG TAB ONE (16:46)
--- NOTE | 2022-08-20 17:57 | RAD REPORT ---
EXAM DESCRIPTION: CT - Head Brain Wo Cont - 08/20/2022 5:31 pm CLINICAL HISTORY: TRAUMA COMPARISON: Head Brain Wo Cont dated 10/05/2021; Facial Bones W/ Mpr dated 08/29/2021 TECHNIQUE: Noncontrast head CT images ad were obtained without IV contrast. Multiplanar reformats we re generated and reviewed. All CT scans are performed using dose optimization technique as appropriate and may include automated exposure control or mA/KV adjustment according to patient size. FINDINGS: No intracranial hemorrhage, mass, or edema. Midline structures are unremarkable. Normal ventricular caliber for age. Raymundo-white matter differentiation is preserved, without evidence of acute infarct. No abnormal extra- axial fluid collections. Mastoid air cells and visualized portions of the paranasal sinuses are clear. No acute bony findings. IMPRESSION: No evidence of an acute intracranial process.
--- NOTE | 2022-08-20 18:09 | ER ---
Nurse's Notes [facility] Name: Mile Wang Age: 27 yrs Sex: Female : 1995 Arrival Date: 08/20/2022 Time: 16:14 Bed 11 Private MD: Jericho Stephenson Diagnosis: Unspecified injury of head, initial encounter Presentation: 08/20 16:23 Chief complaint: Patient states: "I got hit in the back of the head with a plastic tray mb9 1 hour ago. I have a headache in the back that radiates to the front." Pt denies N/V/vision changes. Pt reports being . Coronavirus screen: Vaccine status: Patient reports receiving the 2nd dose of the covid vaccine. Ebola Screen: No symptoms or risks identified at this time. Initial Sepsis Screen: Does the patient meet any 2 criteria? No. Patient's initial sepsis screen is negative. Does the patient have a suspected source of infection? No. Patient's initial sepsis screen is negative. Risk Assessment: Do you want to hurt yourself or someone else? Patient reports no desire to harm self or others. Onset of symptoms was August 20, 2022. 16:23 Method Of Arrival: Ambulatory 9 16:23 Acuity: BAIRON 4 mb9 Triage Assessment: 16:26 Headache History: The patient has had previous headaches. Headache History: The patient mb9 has had previous headaches and this one is similar to previous episodes. General: Appears in no apparent distress. Behavior is cooperative. Pain: Complains of pain in head Pain does not radiate. Pain currently is 9 out of 10 on a pain scale. Quality of pain is described as sharp, shooting, Pain began suddenly. Pain: Also complains of no other associated symptoms. Neuro: Long Agitation-Sedation Scale (RASS): 0 - Alert and Calm Level of Consciousness is awake, alert, obeys commands, Oriented to person, place, time, situation, Appropriate for age Pupils are PERRLA, Reports headache. Respiratory: Airway is patent Respiratory effort is even, unlabored, Respiratory pattern is regular, symmetrical. GI: Patient currently denies nausea, vomiting. Derm: Skin is pink, warm \\T\\ dry. Musculoskeletal: Range of motion: intact in all extremities. 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 - Social history:: Smoking status: Patient denies any tobacco usage or history of. Screenin:29 [facility] ED Fall Risk Assessment (Adult) History of falling in the last 3 months, mb9 including since admission No falls in past 3 months (0 pts) Confusion or Disorientation No (0 pts) Intoxicated or Sedated No (0 pts) Impaired Gait No (0 pts) Mobility Assist Device Used No (0 pt) Altered Elimination No (0 pt) Score/Fall Risk Level 0 - 2 = Low Risk Oriented to surroundings, Maintained a safe environment, Educated pt \\T\\ family on fall prevention, incl call for assistance when getting out of bed. Abuse screen: Denies threats or abuse. Nutritional screening: No deficits noted. Tuberculosis screening: No symptoms or risk factors identified. Assessment: 16:27 Reassessment: see triage assessment. mb9 16:50 Reassessment: No changes from previously documented assessment. unable to get FHT after ll1 5 minutes of trying. Asked another RN to try. 17:56 Reassessment: Patient and/or family updated on plan of care and expected duration. Pain mb9 level reassessed. Patient is alert, oriented x 3, equal unlabored respirations, skin warm/dry/pink. Patient states feeling better. Patient states symptoms have improved. 18:22 Reassessment: No changes from previously documented assessment. Patient and/or family ll1 updated on plan of care and expected duration. Pain level reassessed. Vital Signs: 16:23 BP 139 / 62; Pulse 91; Resp 18; Temp 97.3; Pulse Ox 100% ; Weight 90.72 kg; Height 5 mb9 ft. 3 in. ; Pain 9/10; 17:56 BP 135 / 74; Pulse 74; Resp 16; Pulse Ox 100% on R/A; mb9 18:22 BP 118 / 74; Pulse 64; Resp 16; Pulse Ox 100% ; ll1 16:23 Body Mass Index 35.43 (90.72 kg, 160.02 cm) mb9 16:23 Pain Scale: Adult mb9 Vitals: 16:53 Heart Tones 168. mb9 Capo Coma Score: 16:35 Eye Response: spontaneous(4). Motor Response: obeys commands(6). Verbal Response: cp oriented(5). Total: 15. ED Course: 16:19 Patient arrived in ED. im 16:19 Jericho Stephenson DO is Private Physician. im 16:25 Triage completed. mb9 16:25 Arm band placed on. mb9 16:27 Zen Pierre PA is PHCP. cp 16:27 Placed in gown. Bed in low position. Call light in reach. Side rails up X 1. Client mb9 placed on continuous cardiac and pulse oximetry monitoring. NIBP monitoring applied. 16:28 Ashok Muller MD is Attending Physician. cp 16:29 Beth Duarte RN is Primary Nurse. mb9 16:29 No provider procedures requiring assistance completed. mb9 17:17 Casa Stephenson MD is Attending Physician. cp 17:32 CT Head Brain wo Cont In Process Unspecified. EDMS Administered Medications: 16:50 Drug: Acetaminophen PO 1000 mg Route: PO; ll1 18:22 Follow up: Response: No adverse reaction ll1 Medication: 16:28 VIS not applicable for this client. mb9 Outcome: 18:08 Discharge ordered by MD. cp 18:23 Patient left the ED. ll1 Signatures: Dispatcher [employer] EDMS Zen Pierre PA PA cp Lewis, Lynsay, RN RN ll1 Beth Duarte RN RN mb9 Louisa Garcia im Corrections: (The following items were deleted from the chart) 16:28 16:23 Chief complaint: Patient states: "I got hit in the back of the head with a mb9 plastic tray 1 hour ago. I have a headache in the back that radiates to the front." Pt denies N/V/vision changes mb9
--- NOTE | 2022-08-20 18:09 | EDPHYS ---
Physician Documentation [facility] Name: Mile Wang Age: 27 yrs Sex: Female : 1995 Arrival Date: 08/20/2022 Time: 16:14 Bed 11 Private MD: Sachin [facility] ED Physician Casa Stephenson HPI: 08/20 16:35 This 27 yrs old Female presents to ER via Ambulatory with complaints of Headache, Head cp Injury-Adult. 16:35 The patient or guardian reports injury. The complaints affect the occipital area of cp head. 16:35 Context of injury: The problem was sustained at work, resulted from a direct blow, food cp tray. Onset: The symptoms/episode began/occurred 1 hour(s) ago. 16:35 Associated signs and symptoms: Loss of consciousness: This patient did not experience cp any loss of consciousness. Pertinent positives: headache, Pertinent negatives: vomiting. 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 - Social history:: Smoking status: Patient denies any tobacco usage or history of. ROS: 16:40 Constitutional: Negative for fever, poor PO intake. cp 16:40 Eyes: Negative for injury, pain, redness, and discharge. cp 16:40 Neck: Negative for pain with movement, pain at rest, stiffness. 16:40 Cardiovascular: Negative for chest pain. 16:40 Respiratory: Negative for cough, shortness of breath, wheezing. 16:40 Neuro: Positive for headache, Negative for altered mental status, loss of consciousness, syncope, weakness. 16:40 All other systems are negative. Exam: 16:45 Constitutional: The patient appears in no acute distress, alert, awake, well developed, cp well nourished. 16:45 Head/face: Noted is swelling, that is mild, tenderness, of the occipital area of scalp.cp 16:45 Eyes: Periorbital structures: appear normal, Pupils: equal, round, and reactive to light and accomodation, Extraocular movements: intact throughout, Conjunctiva: normal, no exudate, no injection, Sclera: no appreciated abnormality, Lids and lashes: appear normal, bilaterally. 16:45 ENT: External ear(s): are unremarkable, Ear canal(s): are normal, TM's: dullness, bilaterally, Nose: is normal, Mouth: Lips: moist, Oral mucosa: pink and intact, moist, Posterior pharynx: is normal, airway is patent, no erythema, no exudate. 16:45 Neck: C-spine: vertebral tenderness, is not appreciated, crepitus, is not appreciated, ROM/movement: pain, is not appreciated, limited range of motion, is not appreciated. 16:45 Chest/axilla: Inspection: normal. 16:45 Cardiovascular: Rate: normal, Rhythm: regular. 16:45 Respiratory: the patient does not display signs of respiratory distress, Respirations: normal, no use of accessory muscles, no retractions, labored breathing, is not present, Breath sounds: are clear throughout, no decreased breath sounds, no stridor, no wheezing. 16:45 Abdomen/GI: Inspection: gravid appearance, is noted. 16:45 Back: pain, is absent, ROM is normal. 16:45 Neuro: Orientation: to person, place \T\ time. Mentation: is normal, Cerebellar function: is grossly normal, Motor: moves all fours, strength is normal, Sensation: is normal, Gait: is steady. Vital Signs: 16:23 BP 139 / 62; Pulse 91; Resp 18; Temp 97.3; Pulse Ox 100% ; Weight 90.72 kg; Height 5 mb9 ft. 3 in. ; Pain 9/10; 17:56 BP 135 / 74; Pulse 74; Resp 16; Pulse Ox 100% on R/A; mb9 18:22 BP 118 / 74; Pulse 64; Resp 16; Pulse Ox 100% ; ll1 16:23 Body Mass Index 35.43 (90.72 kg, 160.02 cm) mb9 16:23 Pain Scale: Adult mb9 Capo Coma Score: 16:35 Eye Response: spontaneous(4). Motor Response: obeys commands(6). Verbal Response: cp oriented(5). Total: 15. MDM: 16:31 Patient medically screened. 18:07 Data reviewed: vital signs, nurses notes, radiologic studies, CT scan. 18:07 Differential diagnosis: Contusion of Hematoma on Laceration of Intracranial bleed- cp Concussion cerebral contusion. I considered the following discharge prescriptions or medication management in the emergency department Medications were administered in the Emergency Department. See MAR. Counseling: I had a detailed discussion with the patient and/or guardian regarding: the historical points, exam findings, and any diagnostic results supporting the discharge/admit diagnosis, radiology results, to return to the emergency department if symptoms worsen or persist or if there are any questions or concerns that arise at home. Special discussion: Based on the patient's history, exam and DX evaluation, there is no indication for emergent intervention or inpatient TX. It is understood by the patient/guardian that if the SXs persist or worsen they need to return immediately for re-evaluation. 08/20 16:36 Order name: CT Head Brain wo Cont; Complete Time: 18:00 08/20 18:00 Interpretation: Report reviewed. 08/20 16:32 Order name: FHT's; Complete Time: 16:50 cp Administered Medications: 16:50 Drug: Acetaminophen PO 1000 mg Route: PO; ll1 18:22 Follow up: Response: No adverse reaction ll1 Disposition Summary: 08/20/22 18:08 Discharge Ordered Location: Home cp Problem: new cp Symptoms: have improved cp Condition: Stable cp Diagnosis - Unspecified injury of head, initial encounter cp Followup: cp - With: Private Physician - When: 1 - 2 days - Reason: Worsening of condition Discharge Instructions: - Discharge Summary Sheet cp - Head Injury, Adult cp Forms: - Medication Reconciliation Form cp - Thank You Letter cp - Antibiotic Education cp - Prescription Opioid Use cp - Work release form ll1 Signatures: Dispatcher [employer] EDMS Zen Pierre PA PA cp Lewis, Lynsay RN RN ll1 Beth Duarte RN RN mb9
[2022-08-20 19:30] VITALS: O2SAT 100
[2022-08-20 19:32] VITALS: TEMP 97.3
[2022-08-20 19:34] VITALS: BP 118/74
== END 2022-08-20 18:23 | disposition home or self-care (01) ==
LOC: ER 16:14
DX: S09.90XA Unspecified injury of head, initial encounter (principal); Z88.1 Allergy status to other antibiotic agents
CPT/HCPCS: 70450; 99283

== ENCOUNTER 2022-09-16 11:24 | Emergency (ER) | payer BC, OTHER ==
--- OUTSIDE RECORDS SUMMARY | 2022-09-16 11:43 | XMS REPORT | Continuity of Care Document ---
:1995 Author Organization [facility] t Address [address] [place] [address] Care Team Providers Name Role Phone Asked, No Pcp Primary Care Physician Unavailable JOANNE PARKINSON Attending Clinician Unavailable DARIELA JACOB Attending Clinician Unavailable Dariela Jacob MD Attending Clinician Irma Alma ORTIZ Attending Clinician [phone] ZEN CORREA Attending Clinician Unavailable ZEN CORREA Attending Clinician Unavailable Cris, PapiWmchealthradha Attending Clinician Unavailable Akosua Guzman Attending Clinician 1, [facility] Attending Clinician Unavailable ALMA SOLIS Attending Clinician Unavailable Mallory Carroll Attending Clinician CHIQUIS KATE Attending Clinician Unavailable CHIQUIS KATE Attending Clinician Unavailable Chiquis Kate MD Attending Clinician RADHA NOBLES Attending Clinician Unavailable Radha Nobles CNM Attending Clinician Renee, Reddy [facility] Attending Clinician Unavailable Seth Kay MD Attending Clinician NIESHA SETH AMERICA Attending Clinician Unavailable Doctor Unassigned, Gaston Attending Clinician Unavailable KIARRA ARIZMENDI Attending Clinician Unavailable Ugo CRISIS INTERVENTION SPECIALISTKiarra Herrera Attending Clinician CTBRUCE Attending Clinician Unavailable MAU RHOADES Attending Clinician Unavailable Nurse, [facility] Attending Clinician Unavailable Unknown, Attending Attending Clinician Unavailable Provider, Ang-Rmchp Temp Attending Clinician Unavailable COLT MICHAELS Attending Clinician Unavailable Dennys Lara MD Attending Clinician RAVEN GOLDSMITH Attending Clinician Unavailable Raven Goldsmith MD Attending Clinician Katerin TAYLOR, Eladia Thorpe Attending Clinician [phone] Nory Jiménez DO Attending Clinician Martha Agarwal MD Attending Clinician KEVIN SINGH Attending Clinician Unavailable Risk, [facility] Attending Clinician Unavailable Kevin Colbert Attending Clinician DENNYS LARA Attending Clinician Unavailable Areli Patel DO Attending Clinician AMY SHARMA Attending Clinician Unavailable Amy Jacob Attending Clinician Pob, [facility] Main Attending Clinician Unavailable Neal Reed MD Attending Clinician [phone] NEAL REED Attending Clinician Unavailable Trever Hernandez Attending Clinician LUKE FISH Attending Clinician Unavailable Luke Fish MD Attending Clinician ARELI PATEL Attending Clinician Unavailable Zamzam MCGOWAN, Vijaya hWelan Attending Clinician Unavailable Ultrasound, Ang-Mfm Attending Clinician [...] Unavailable Armen Rodriguez MD Attending Clinician Lab, Ang-Wmchealthp Attending Clinician Unavailable LILIANA SALINAS Attending Clinician [...] Clinician Santosh Simon DO Attending Clinician Visit, [facility] Nurse Attending Clinician Unavailable Kevin Miramontes [...] Number Effective Date Expiration Date Piyush sofia [facility] [id number] 2021 00:00:00 [facility] [id number] 2017 CHOICE [place] STAR 00:00:00 Problems Condition Condition Condition Status Onset Resolution Last Treating Co mments Source Name Details Category Date Date Treatment Clinician Date Nausea and Nausea and Disease Active U nivers vomiting vomiting 5-02 ity of in in 00:00: [place] 00 [facility] Attention Attention Disease Active Uni vers deficit deficit 4-11 [place] hyper[place] Medical disorder disorder Branch (ADHD), (ADHD), unspecifie unspecifie d ADHD d ADHD type type Anemia, Anemia, Disease Active 2021-03 Univers 2-27 it y of 00:00: [place] [facility] 37 weeks 37 weeks Disease Active 2021-03 Unive rs gestation gestation 2-05 ity of of of 00:00: [place] 00 [facility] Seizure Seizure Disease Active 2021-03 Univers 1-24 ity of 00:00: [place] [facility] Disease Active 2021-03 Uni vers with with 0-11 ity of adoption adoption 00:00: [place] planned planned 00 [facility] URI (upper URI (upper Disease Active U nivers respirator respirator 9-25 it y of y y 00:00: [place] infection) infection) 00 Pr dical Branch 27 weeks 27 weeks Disease Active Unive rs gestation gestation 9-25 ity of of of 00:00: [place] 00 [facility] Round Round Disease Active Univers ligament ligament 9-25 ity of pain pain 00:00: [place] 00 [facility] BMI BMI Disease Active Univers 35.0-35.9, 35.0-35.9, 9-23 it y of adult adult 00:00: [place] [facility] Elevated Elevated Disease Active Unive rs [...] ity o f 00:00: g of this [place] 00 note Medical might be Branch different [...] of , , 00:00: g of this [place] antepartum antepartum 00 note Me dical might be Branch different from the original. Reports on buspirone Frequent Frequent Disease Active Unive rs UTI UTI 8-03 ity of 00:00: [place] 00 Medical Branch Seizure Seizure Disease Active Overview: Univ ers disorder disorder - Formattin ity of in in 00:00: g of this [place] 00 note Medi tressa might be Branch [...] Active Uni vers 5-10 ity of 00:00: [place] [facility] Bipolar Bipolar Disease Active Overview: Univ ers disease disease 5- Formattin ity o f during during 00:00: g of this [place] 00 note Medi tressa might be Branch different from the original. D/c lithium 3 weeks ago Seizure Seizure Disease Active 2015-03 Overview: Univ ers disorder disorder 2-09 Formattin ity of 00:00: g of this [place] 00 note Medical might be Branch different [...] Comments Source ASSERTION 2022-05-25 University of 00:00:00 [facility] History SDOH [facility] Alcohol Comment Medical C enter Gender identity [facility] Sexual orientation [facility] History SDOH [facility] Alcohol Std Drinks [facility] History SDOH [facility] Alcohol Binge Medical Zay ter Exposure to 2022-07-05 2022-07-15 Not sure University SARS-CoV-2 (event) 00:00:00 14:40:00 [facility] Tobacco use and 2021-10-07 2021-10-07 Smokeless Universit y of exposure 00:00:00 00:00:00 tobacco non-user [facility] Alcohol intake 2020-09-24 2020-09-24 Ex-drinker [facility] SDOH 2020-09-22 2020-09-[address] [facility] Alcohol Frequency 00:00:00 00:00:00 [facility] Center History of Social 2019-01-02 2019-01-[address] function 00:00:00 00:00:00 Hospital Sex Assigned At [address] [facility] 00:[facility]00 [facility] Smoking Status Start Date Stop Date Source Never smoked tobacco [facility] Medications Ordered Filled Start Stop Current Ordering Indication Dosage Frequency Signature Comments Components Source Medication Medication Date Date Medication? Clinician (SIG) Name Name lamoTRIgine Yes [id number] 100mg Take 1 Univers (LAMICTAL) 6-16 tablet by ity of 100 mg 00:00: mouth in [place] tablet 00 the Medical morning. Branch lamoTRIgine Yes [id number] 100mg Take 1 Univers (LAMICTAL) 6-16 tablet by ity of 100 mg 00:00: mouth in [place] tablet 00 the Medical morning. Branch lamoTRIgine Yes [id number] 100mg Take 1 Univers (LAMICTAL) 6-16 tablet by ity of 100 mg 00:00: mouth in [place] tablet 00 the Medical morning. Branch lamoTRIgine Yes [id number] 100mg Take 1 Univers (LAMICTAL) 6-16 tablet by ity of 100 mg 00:00: mouth in [place] tablet 00 the Medical morning. Branch NaCl 0.9% 2022- No 1000mL at 999 Uni vers (NS) bolus 07-15 05-09 mL/hr, ity of infusion 20:45: 21:40 1,000 mL, Dwayne as 1,000 mL 00 :00 IV Medical Infusion, Branch ONCE, 1 dose, On Thu07/15/22 at 1545, STAT doxylamine- 2022-0 Yes [id number] Day 1: Univers pyridoxine, 5 Take 2 ity of vit B6, 00:00: tablet [place] (DICLEGIS) 00 before Medical 10-10 mg bed. Day Branch per tablet 2: If still having nausea and vomiting 2 tablet bed. Day 3 take 1 tablet in am and 2 tablet at bed doxylamine- 2022-0 Yes [id number] Day 1: Univers pyridoxine, 07-08 Take 2 ity of vit B6, 00:00: tablet [place] (DICLEGIS) 00 before Medical 10-10 mg bed. Day Branch per tablet 2: If still having nausea and vomiting 2 tablet bed. Day 3 take 1 tablet in am and 2 tablet at bed doxylamine- 2022-0 Yes [id number] Day 1: Univers pyridoxine, 07-08 Take 2 ity of vit B6, 00:00: tablet [place] (DICLEGIS) 00 before Medical 10-10 mg bed. Day Branch per tablet 2: If still having nausea and vomiting 2 tablet bed. Day 3 take 1 tablet in am and 2 tablet at bed doxylamine- 2022-0 Yes [id number] Day 1: Univers pyridoxine, 07-08 Take 2 ity of vit B6, 00:00: tablet [place] (DICLEGIS) 00 before Medical 10-10 mg bed. Day Branch per tablet 2: If still having nausea and vomiting 2 tablet bed. Day 3 take 1 tablet in am and 2 tablet at bed doxylamine- 3-0 Yes [id number] Day 1: Univers pyridoxine, 5- Take 2 ity of vit B6, 00:00: tablet [place] (DICLEGIS) 00 before Medical 10-10 mg bed. Day Branch per tablet 2: If still having nausea and vomiting 2 tablet bed. Day 3 take 1 tablet in am and 2 tablet at bed doxylamine- 2022-0 Yes [id number] Day 1: Univers pyridoxine, 5- Take 2 ity of vit B6, 00:00: tablet [place] (DICLEGIS) 00 before Medical 10-10 mg bed. Day Branch per tablet 2: If still having nausea and vomiting 2 tablet bed. Day 3 take 1 tablet in am and 2 tablet at bed doxylamine- 2023-0 Yes [id number] Day 1: Univers pyridoxine, 5-02 Take 2 ity of vit B6, 00:00: tablet [place] (DICLEGIS) 00 before Medical 10-10 mg bed. Day Branch per tablet 2: If still having nausea and vomiting 2 tablet bed. Day 3 take 1 tablet in am and 2 tablet at bed doxylamine- 2023-0 Yes [id number] Day 1: Univers pyridoxine, 5-02 Take 2 ity of vit B6, 00:00: tablet [place] (DICLEGIS) 00 before Medical 10-10 mg bed. Day Branch per tablet 2: If still having nausea and vomiting 2 tablet bed. Day 3 take 1 tablet in am and 2 tablet at bed doxylamine- 3-0 Yes [id number] Day 1: Univers pyridoxine, 5-02 Take 2 ity of vit B6, 00:00: tablet [place] (DICLEGIS) 00 before Medical 10-10 mg bed. Day Branch per tablet 2: If still having nausea and vomiting 2 tablet bed. Day 3 take 1 tablet in am and 2 tablet at bed doxylamine- 3-0 Yes [id number] Day 1: Univers pyridoxine, 5-02 Take 2 ity of vit B6, 00:00: tablet [place] (DICLEGIS) 00 before Medical 10-10 mg bed. Day Branch per tablet 2: If still having nausea and vomiting 2 tablet bed. Day 3 take 1 tablet in am and 2 tablet at bed doxylamine- 3-0 Yes [id number] Day 1: Univers pyridoxine, 5-02 Take 2 ity of vit B6, 00:00: tablet [place] (DICLEGIS) 00 before Medical 10-10 mg bed. Day Branch per tablet 2: If still having nausea and vomiting 2 tablet bed. Day 3 take 1 tablet in am and 2 tablet at bed doxylamine- 2023-0 Yes [id number] Day 1: Univers pyridoxine, 5-02 Take 2 ity of vit B6, 00:00: tablet [place] (DICLEGIS) 00 before Medical 10-10 mg bed. Day Branch per tablet 2: If still having nausea and vomiting 2 tablet bed. Day 3 take 1 tablet in am and 2 tablet at bed doxylamine- 3-0 Yes [id number] Day 1: Univers pyridoxine, 5-02 Take 2 ity of vit B6, 00:00: tablet [place] (DICLEGIS) 00 before Medical 10-10 mg bed. Day Branch per tablet 2: If still having nausea and vomiting 2 tablet bed. Day 3 take 1 tablet in am and 2 tablet at bed doxylamine- 3-0 Yes [id number] Day 1: Univers pyridoxine, 5-02 Take 2 ity of vit B6, 00:00: tablet [place] (DICLEGIS) 00 before Medical 10-10 mg bed. Day Branch per tablet 2: If still having nausea and vomiting 2 tablet bed. Day 3 take 1 tablet in am and 2 tablet at bed doxylamine- 3-0 Yes [id number] Day 1: Univers pyridoxine, 5-02 Take 2 ity of vit B6, 00:00: tablet [place] (DICLEGIS) 00 before Medical 10-10 mg bed. Day Branch per tablet 2: If still having nausea and vomiting 2 tablet bed. Day 3 take 1 tablet in am and 2 tablet at bed doxylamine- 2022-0 Yes [id number] Day 1: Univers pyridoxine, 5-02 Take 2 ity of vit B6, 00:00: tablet [place] (DICLEGIS) 00 before Medical 10-10 mg bed. Day Branch per tablet 2: If still having nausea and vomiting 2 tablet bed. Day 3 take 1 tablet in am and 2 tablet at bed doxylamine- 3-0 Yes [id number] Day 1: Univers pyridoxine, 5-02 Take 2 ity of vit B6, 00:00: tablet [place] (DICLEGIS) 00 before Medical 10-10 mg bed. Day Branch per tablet 2: If still having nausea and vomiting 2 tablet bed. Day 3 take 1 tablet in am and 2 tablet at bed doxylamine- 3-0 Yes [id number] Day 1: Univers pyridoxine, 5-02 Take 2 ity of vit B6, 00:00: tablet [place] (DICLEGIS) 00 before Medical 10-10 mg bed. Day Branch per tablet 2: If still having nausea and vomiting 2 tablet bed. Day 3 take 1 tablet in am and 2 tablet at bed doxylamine- 2023-0 Yes [id number] Day 1: Univers pyridoxine, 5- Take 2 ity of vit B6, 00:00: tablet [place] (DICLEGIS) 00 before Medical 10-10 mg bed. Day Branch per tablet 2: If still having nausea and vomiting 2 tablet bed. Day 3 take 1 tablet in am and 2 tablet at bed doxylamine- 2023-0 Yes [id number] Day 1: Univers pyridoxine, 5- Take 2 ity of vit B6, 00:00: tablet [place] (DICLEGIS) 00 before Medical 10-10 mg bed. Day Branch per tablet 2: If still having nausea and vomiting 2 tablet bed. Day 3 take 1 tablet in am and 2 tablet at bed proMETHazin 3-0 Yes [id number] 25mg Take 1 Univers e 25 mg 4-19 tablet by ity of tablet 00:00: mouth [place] 00 every 6 Medical (six) Branch hours as needed for Nausea and Vomiting (N/V). proMETHazin 3-0 Yes [id number] 25mg Take 1 Univers e 25 mg 4-19 tablet by ity of tablet 00:00: mouth [place] 00 every 6 Medical (six) Branch hours as needed for Nausea and Vomiting (N/V). proMETHazin 3-0 Yes [id number] 25mg Take 1 Univers e 25 mg 4-19 tablet by ity of tablet 00:00: mouth [place] 00 every 6 Medical (six) Branch hours as needed for Nausea and Vomiting (N/V). proMETHazin 3-0 Yes [id number] 25mg Take 1 Univers e 25 mg 4-19 tablet by ity of tablet 00:00: mouth [place] 00 every 6 Medical (six) Branch hours as needed for Nausea and Vomiting (N/V). proMETHazin 2023-0 Yes [id number] 25mg Take 1 Univers e 25 mg 4-19 tablet by ity of tablet 00:00: mouth [place] 00 every 6 Medical (six) Branch hours as needed for Nausea and Vomiting (N/V). proMETHazin 2023-0 Yes [id number] 25mg Take 1 Univers e 25 mg 4-19 tablet by ity of tablet 00:00: mouth [place] 00 every 6 Medical (six) Branch hours as needed for Nausea and Vomiting (N/V). proMETHazin 2023-0 Yes [id number] 25mg Take 1 Univers e 25 mg 4-19 tablet by ity of tablet 00:00: mouth [place] 00 every 6 Medical (six) Branch hours as needed for Nausea and Vomiting (N/V). proMETHazin 2023-0 Yes [id number] 25mg Take 1 Univers e 25 mg 4-19 tablet by ity of tablet 00:00: mouth [place] 00 every 6 Medical (six) Branch hours as needed for Nausea and Vomiting (N/V). proMETHazin 2023-0 Yes [id number] 25mg Take 1 Univers e 25 mg 4-19 tablet by ity of tablet 00:00: mouth [place] 00 every 6 Medical (six) Branch hours as needed for Nausea and Vomiting (N/V). proMETHazin 2023-0 Yes [id number] 25mg Take 1 Univers e 25 mg 4-19 tablet by ity of tablet 00:00: mouth [place] 00 every 6 Medical (six) Branch hours as needed for Nausea and Vomiting (N/V). proMETHazin 2023-0 Yes [id number] 25mg Take 1 Univers e 25 mg 4-19 tablet by ity of tablet 00:00: mouth [place] 00 every 6 Medical (six) Branch hours as needed for Nausea and Vomiting (N/V). proMETHazin 2023-0 Yes [id number] 25mg Take 1 Univers e 25 mg 4-19 tablet by ity of tablet 00:00: mouth [place] 00 every 6 Medical (six) Branch hours as needed for Nausea and Vomiting (N/V). proMETHazin 2023-0 Yes [id number] 25mg Take 1 Univers e 25 mg 4-19 tablet by ity of tablet 00:00: mouth [place] 00 every 6 Medical (six) Branch hours as needed for Nausea and Vomiting (N/V). proMETHazin 2023-0 Yes [id number] 25mg Take 1 Univers e 25 mg 4-19 tablet by ity of tablet 00:00: mouth [place] 00 every 6 Medical (six) Branch hours as needed for Nausea and Vomiting (N/V). proMETHazin 2023-0 Yes [id number] 25mg Take 1 Univers e 25 mg 4-19 tablet by ity of tablet 00:00: mouth [place] 00 every 6 Medical (six) Branch hours as needed for Nausea and Vomiting (N/V). proMETHazin 2023-0 Yes [id number] 25mg Take 1 Univers e 25 mg 4-19 tablet by ity of tablet 00:00: mouth [place] 00 every 6 Medical (six) Branch hours as needed for Nausea and Vomiting (N/V). proMETHazin 2022-0 Yes [id number] 25mg Take 1 Univers e 25 mg 4-19 tablet by ity of tablet 00:00: mouth [place] 00 every 6 Medical (six) Branch hours as needed for Nausea and Vomiting (N/V). proMETHazin 2022-0 Yes [id number] 25mg Take 1 Univers e 25 mg 4-19 tablet by ity of tablet 00:00: mouth [place] 00 every 6 Medical (six) Branch hours as needed for Nausea and Vomiting (N/V). proMETHazin 2022-0 Yes [id number] 25mg Take 1 Univers e 25 mg 4-19 tablet by ity of tablet 00:00: mouth [place] 00 every 6 Medical (six) Branch hours as needed for Nausea and Vomiting (N/V). proMETHazin 2022-0 Yes [id number] 25mg Take 1 Univers e 25 mg 4-19 tablet by ity of tablet 00:00: mouth [place] 00 every 6 Medical (six) Branch hours as needed for Nausea and Vomiting (N/V). proMETHazin 2022-0 Yes [id number] 25mg Take 1 Univers e 25 mg 4-19 tablet by ity of tablet 00:00: mouth [place] 00 every 6 Medical (six) Branch hours as needed for Nausea and Vomiting (N/V). proMETHazin 2022-0 Yes [id number] 25mg Take 1 Univers e 25 mg 4-19 tablet by ity of tablet 00:00: mouth [place] 00 every 6 Medical (six) Branch hours as needed for Nausea and Vomiting (N/V). proMETHazin 2022-0 Yes [id number] 25mg Take 1 Univers e 25 mg 4-19 tablet by ity of tablet 00:00: mouth [place] 00 every 6 Medical (six) Branch hours as needed for Nausea and Vomiting (N/V). foLIC acid 2022-0 2022- Yes [id number] 4mg Take 4 Univers 1 mg tablet 4-17 10-15 tablets by i ty of 00:00: 04:59 mouth in [place] 00 :00 the Medical morning Branch for 180 days. foLIC acid 2022-0 2023- Yes [id number] 4mg Take 4 Univers 1 mg tablet 4-17 10-15 tablets by i ty of 00:00: 04:59 mouth in [place] 00 :00 the Medical morning Branch for 180 days. foLIC acid 2022- Yes [id number] 4mg Take 4 Univers 1 mg tablet 4-17 10-15 tablets by i ty of 00:00: 04:59 mouth in [place] 00 :00 the Medical morning Branch for 180 days. foLIC acid 2022- Yes [id number] 4mg Take 4 Univers 1 mg tablet 4-17 10-15 tablets by i ty of 00:00: 04:59 mouth in [place] 00 :00 the Medical morning Branch for 180 days. foLIC acid 2022- Yes [id number] 4mg Take 4 Univers 1 mg tablet 4-17 10-15 tablets by i ty of 00:00: 04:59 mouth in [place] 00 :00 the Medical morning Branch for 180 days. foLIC acid 2022- Yes [id number] 4mg Take 4 Univers 1 mg tablet 4-17 10-15 tablets by i ty of 00:00: 04:59 mouth in [place] 00 :00 the Medical morning Branch for 180 days. foLIC acid 2022- Yes [id number] 4mg Take 4 Univers 1 mg tablet 4-17 10-15 tablets by i ty of 00:00: 04:59 mouth in [place] 00 :00 the Medical morning Branch for 180 days. foLIC acid 2022- Yes [id number] 4mg Take 4 Univers 1 mg tablet 4-17 10-15 tablets by i ty of 00:00: 04:59 mouth in [place] 00 :00 the Medical morning Branch for 180 days. foLIC acid 2022- Yes [id number] 4mg Take 4 Univers 1 mg tablet 4-17 10-15 tablets by i ty of 00:00: 04:59 mouth in [place] 00 :00 the Medical morning Branch for 180 days. foLIC acid 2022- Yes [id number] 4mg Take 4 Univers 1 mg tablet 4-17 10-15 tablets by i ty of 00:00: 04:59 mouth in [place] 00 :00 the Medical morning Branch for 180 days. foLIC acid 2022- Yes [id number] 4mg Take 4 Univers 1 mg tablet 4-17 10-15 tablets by i ty of 00:00: 04:59 mouth in [place] 00 :00 the Medical morning Branch for 180 days. foLIC acid 2022- Yes [id number] 4mg Take 4 Univers 1 mg tablet 4-17 10-15 tablets by i ty of 00:00: 04:59 mouth in [place] 00 :00 the Medical morning Branch for 180 days. foLIC acid 2022- Yes [id number] 4mg Take 4 Univers 1 mg tablet 4-17 10-15 tablets by i ty of 00:00: 04:59 mouth in [place] 00 :00 the Medical morning Branch for 180 days. foLIC acid 2022- Yes [id number] 4mg Take 4 Univers 1 mg tablet 4-17 10-15 tablets by i ty of 00:00: 04:59 mouth in [place] 00 :00 the Medical morning Branch for 180 days. foLIC acid 2022- Yes [id number] 4mg Take 4 Univers 1 mg tablet 4-17 10-15 tablets by i ty of 00:00: 04:59 mouth in [place] 00 :00 the Medical morning Branch for 180 days. foLIC acid 2022- Yes [id number] 4mg Take 4 Univers 1 mg tablet 4-17 10-15 tablets by i ty of 00:00: 04:59 mouth in [place] 00 :00 the Medical morning Branch for 180 days. foLIC acid 2022- Yes [id number] 4mg Take 4 Univers 1 mg tablet 4-17 10-15 tablets by i ty of 00:00: 04:59 mouth in [place] 00 :00 the Medical morning Branch for 180 days. foLIC acid 2022- Yes [id number] 4mg Take 4 Univers 1 mg tablet 4-17 10-15 tablets by i ty of 00:00: 04:59 mouth in [place] 00 :00 the Medical morning Branch for 180 days. foLIC acid 2022- Yes [id number] 4mg Take 4 Univers 1 mg tablet 4-17 10-15 tablets by i ty of 00:00: 04:59 mouth in [place] 00 :00 the Medical morning Branch for 180 days. foLIC acid 2022- Yes [id number] 4mg Take 4 Univers 1 mg tablet 4-17 10-15 tablets by i ty of 00:00: 04:59 mouth in [place] 00 :00 the Medical morning Branch for 180 days. foLIC acid 2022- Yes [id number] 4mg Take 4 Univers 1 mg tablet 4-17 10-15 tablets by i ty of 00:00: 04:59 mouth in [place] 00 :00 the Medical morning Branch for 180 days. foLIC acid 2022- Yes [id number] 4mg Take 4 Univers 1 mg tablet 4-17 10-15 tablets by i ty of 00:00: 04:59 mouth in [place] 00 :00 the Medical morning Branch for 180 days. foLIC acid 2022- Yes [id number] 4mg Take 4 Univers 1 mg tablet 4-17 10-15 tablets by i ty of 00:00: 04:59 mouth in [place] 00 :00 the Medical morning Branch for 180 days. foLIC acid 2022- Yes [id number] 4mg Take 4 Univers 1 mg tablet 4-17 10-15 tablets by i ty of 00:00: 04:59 mouth in [place] 00 :00 the Medical morning Branch for 180 days. Yes [id number] 1{tbl} Take 1 U nivers multivitami 4-11 tablet by ity of n ( 00:00: [place] VIT[place] 00 the Medical tablet morning. Branch Yes [id number] 1{tbl} Take 1 U nivers multivitami 4-11 tablet by ity of n ( 00:00: [place] VIT[place] 00 the Medical tablet morning. Branch Yes [id number] 1{tbl} Take 1 U nivers multivitami 4-11 tablet by ity of n ( 00:00: mouth [place] VIT[place] 00 the Medical tablet morning. Branch Yes [id number] 1{tbl} Take 1 U nivers multivitami 4-11 tablet by ity of n ( 00:00: mouth in [place] VIT[place] 00 the Medical tablet morning. Branch Yes [id number] 1{tbl} Take 1 U nivers multivitami 4-11 tablet by ity of n ( 00:00: mouth in [place] VIT[place] 00 the Medical tablet morning. Branch Yes [id number] 1{tbl} Take 1 U nivers multivitami 4-11 tablet by ity of n ( 00:00: mouth in [place] VIT[place] 00 the Medical tablet morning. [place] Yes [id number] 1{tbl} Take 1 U nivers multivitami 4-11 tablet by ity of n ( 00:00: mouth in [place] 00 the Medical tablet morning. [place] Yes [id number] 1{tbl} Take 1 U nivers multivitami 4-11 tablet by ity of n ( 00:00: mouth in [place] VIT[place] 00 the Medical tablet morning. [place] Yes [id number] 1{tbl} Take 1 U nivers multivitami 4-11 tablet by ity of n ( 00:00: mouth in [place] V[place] 00 the Medical tablet morning. [place] Yes [id number] 1{tbl} Take 1 U nivers multivitami 4-11 tablet by ity of n ( 00:00: mouth in [place] VIT[place] 00 the Medical tablet morning. [place] Yes [id number] 1{tbl} Take 1 U nivers multivitami 4-11 tablet by ity of n ( 00:00: mouth in [place] VIT[place] 00 the Medical tablet morning. [place] Yes [id number] 1{tbl} Take 1 U nivers multivitami 4-11 tablet by ity of n ( 00:00: mouth in [place] VITAM[place] 00 the Medical tablet morning. [place] Yes [id number] 1{tbl} Take 1 U nivers multivitami 4-11 tablet by ity of n ( 00:00: mouth in [place] VITAM[place]) 00 the Medical tablet morning. [place] Yes [id number] 1{tbl} Take 1 U nivers multivitami 4-11 tablet by ity of n ( 00:00: mouth in [place] VITAM[place]) 00 the Medical tablet morning. [place] Yes [id number] 1{tbl} Take 1 U nivers multivitami 4-11 tablet by ity of n ( 00:00: mouth in [place] VITAMIN) 00 the Medical tablet morning. [place] Yes [id number] 1{tbl} Take 1 U nivers multivitami 4-11 tablet by ity of n ( 00:00: mouth in [place] VITAM[place]) 00 the Medical tablet morning. [place] Yes [id number] 1{tbl} Take 1 U nivers multivitami 4-11 tablet by ity of n ( 00:00: mouth in [place] VITAM[place]) 00 the Medical tablet morning. Branch Yes [id number] 1{tbl} Take 1 U nivers multivitami 4-11 tablet by ity of n ( 00:00: [place] VIT[place]) 00 the Medical tablet morning. [place] Yes [id number] 1{tbl} Take 1 U nivers multivitami 4-11 tablet by ity of n ( 00:00: mouth in [place] VITAMIN) 00 the Medical tablet morning. [place] Yes [id number] 1{tbl} Take 1 [facility] multivitami 4-11 tablet by [facility] n ( 00:00: mouth in [place] VITAMIN) 00 the Medical tablet morning. [place] Yes [id number] 1{tbl} Take 1 [facility] multivitami 4-11 tablet by [facility] of n ( 00:00: mouth in [place] VITAMIN) 00 the Medical tablet morning. [place] Yes [id number] 1{tbl} Take 1 [facility] multivitami 4-11 tablet by [facility] of n ( 00:00: mouth in [place] VITAMIN) 00 the Medical tablet morning. [place] Yes [id number] 1{tbl} Take 1 [facility] multivitami 4-11 tablet by [facility] of n ( 00:00: mouth in [place] VITAMIN) 00 the Medical tablet morning. [place] Yes [id number] 1{tbl} Take 1 [facility] multivitami 4-11 tablet by [facility] of n ( 00:00: mouth in [place] VITAMIN) 00 the Medical tablet morning. [place] Yes [id number] 1{tbl} Take 1 [facility] multivitami 4-11 tablet by [facility] of n ( 00:00: mouth in [place] VITAMIN) 00 the Medical tablet morning. [place] 2022-0 Yes [id number] 1{tbl} Take 1 [facility] multivitami 4-11 tablet by [facility] of n ( 00:00: mouth in [place] VITAMIN) 00 the Medical tablet morning. Branch 2022-0 Yes [id number] 1{tbl} Take 1 [facility] multivitami 4-11 tablet by [facility] of n ( 00:00: mouth in [place] VITAMIN) 00 the Medical tablet morning. Branch 2022-0 Yes [id number] 1{tbl} Take 1 [facility] multivitami 4-11 tablet by [facility] of n ( 00:00: mouth in [place] VITAMIN) 00 the Medical tablet morning. Branch 2022-0 Yes [id number] 1{tbl} Take 1 [facility] multivitami 4-11 tablet by [facility] of n ( 00:00: mouth in [place] VITAMIN) 00 the Medical tablet morning. Branch 2022-0 Yes [id number] 1{tbl} Take 1 [facility] multivitami 4-11 tablet by [facility] of n ( 00:00: mouth in [place] VITAMIN) 00 the Medical tablet morning. Branch gabapentin 2022-0 Yes TAKE 1 [facility] 300 mg 3-15 CAPSULE BY [facility] capsule 00:00: MOUTH [place]CE [place] 00 DAILY Medical NEEDED FOR Branch PANIC ATTACKS DULoxetine 3-0 Yes 60mg Take 1 [facility] 60 mg 3-15 capsule by ity of capsule 00:00: mouth in [place] 00 the Medical morning. Branch gabapentin 2022-0 Yes TAKE 1 [facility] 300 mg 3-15 CAPSULE BY [facility] of capsule 00:00: MOUTH ONCE [place] 00 DAILY Medical NEEDED FOR Branch PANIC ATTACKS DULoxetine 2023-0 Yes 60mg Take 1 [facility] 60 mg 3-15 capsule by ity of capsule 00:00: mouth in [place] 00 the Medical morning. Branch gabapentin 3-0 Yes TAKE 1 [facility] 300 mg 3-15 CAPSULE BY [facility] of capsule 00:00: MOUTH ONCE [place] 00 DAILY Medical NEEDED FOR Branch PANIC ATTACKS DULoxetine 2023-0 Yes 60mg Take 1 [facility] 60 mg 3-15 capsule by ity of capsule 00:00: mouth in [place] 00 the Medical morning. Branch gabapentin 2023-0 Yes TAKE 1 [facility] 300 mg 3-15 CAPSULE BY [facility] of capsule 00:00: MOUTH ONCE [place] 00 DAILY Medical NEEDED FOR Branch PANIC ATTACKS DULoxetine 3-0 Yes 60mg Take 1 [facility] 60 mg 3-15 capsule by [facility]y of capsule 00:00: mouth in [place] the Medical morning. Branch gabapentin 3-0 Yes TAKE 1 [facility] 300 mg 3-15 CAPSULE BY [facility] of capsule 00:00: MOUTH ONCE [place] 00 DAILY Medical NEEDED FOR Branch PANIC ATTACKS DULoxetine 3-0 Yes 60mg Take 1 [facility] 60 mg 3-15 capsule by ity of capsule 00:00: mouth in [place] the Medical morning. Branch gabapentin 3-0 Yes TAKE 1 [facility] 300 mg 3-15 CAPSULE BY it[facility] of capsule 00:00: MOUTH ONCE [place] 00 DAILY Medical NEEDED FOR Branch PANIC ATTACKS DULoxetine 3-0 Yes 60mg Take 1 [facility] 60 mg 3-15 capsule by ity of capsule 00:00: mouth in [place] the Medical morning. Branch gabapentin 3-0 Yes TAKE 1 [facility] 300 mg 3-15 CAPSULE BY it[facility] of capsule 00:00: MOUTH ONCE [place] 00 DAILY Medical NEEDED FOR Branch PANIC ATTACKS DULoxetine 3-0 Yes 60mg Take 1 [facility] 60 mg 3-15 capsule by ity of capsule 00:00: mouth in [place] the Medical morning. Branch gabapentin 3-0 Yes TAKE 1 [facility] 300 mg 3-15 CAPSULE BY it[facility] of capsule 00:00: MOUTH ONCE [place] 00 DAILY Medical NEEDED FOR Branch PANIC ATTACKS DULoxetine 3-0 Yes 60mg Take 1 [facility] 60 mg 3-15 capsule by ity of capsule 00:00: mouth in [place] the Medical morning. Branch gabapentin 3-0 Yes TAKE 1 [facility] 300 mg 3-15 CAPSULE BY it[facility] of capsule 00:00: MOUTH ONCE [place] 00 DAILY Medical NEEDED FOR Branch PANIC ATTACKS DULoxetine 3-0 Yes 60mg Take 1 [facility] 60 mg 3-15 capsule by ity of capsule 00:00: mouth in [place] 00 the Medical morning. Branch gabapentin 2023-0 Yes TAKE 1 [facility] 300 mg 3-15 CAPSULE BY [facility] of capsule 00:00: MOUTH ONCE [place] 00 DAILY Medical NEEDED FOR Branch PANIC ATTACKS DULoxetine 2023-0 Yes 60mg Take 1 [facility] 60 mg 3-15 capsule by it[facility] of capsule 00:00: mouth in [place] 00 the Medical morning. Branch gabapentin 2023-0 Yes TAKE 1 [facility] 300 mg 3-15 CAPSULE BY [facility] of capsule 00:00: MOUTH ONCE [place] 00 DAILY Medical NEEDED FOR Branch PANIC ATTACKS DULoxetine 2023-0 Yes 60mg Take 1 [facility] 60 mg 3-15 capsule by ity of capsule 00:00: mouth in [place] the Medical morning. Branch gabapentin 2023-0 Yes TAKE 1 [facility] 300 mg 3-15 CAPSULE BY it[facility] of capsule 00:00: MOUTH ONCE [place] 00 DAILY Medical NEEDED FOR Branch PANIC ATTACKS DULoxetine 3-0 Yes 60mg Take 1 [facility] 60 mg 3-15 capsule by ity of capsule 00:00: mouth in [place] the Medical morning. Branch gabapentin 3-0 Yes TAKE 1 [facility] 300 mg 3-15 CAPSULE BY it[facility] of capsule 00:00: MOUTH ONCE [place] 00 DAILY Medical NEEDED FOR Branch PANIC ATTACKS DULoxetine 3-0 Yes 60mg Take 1 [facility] 60 mg 3-15 capsule by ity of capsule 00:00: mouth in [place] the Medical morning. Branch gabapentin 3-0 Yes TAKE 1 [facility] 300 mg 3-15 CAPSULE BY it[facility] of capsule 00:00: MOUTH ONCE [place] 00 DAILY Medical NEEDED FOR Branch PANIC ATTACKS DULoxetine 2023-0 Yes 60mg Take 1 [facility] 60 mg 3-15 capsule by ity of capsule 00:00: mouth in [place] the Medical morning. Branch gabapentin 2023-0 Yes TAKE 1 [facility] 300 mg 3-15 CAPSULE BY it[facility] of capsule 00:00: MOUTH ONCE [place] 00 DAILY Medical NEEDED FOR Branch PANIC ATTACKS DULoxetine 2023-0 Yes 60mg Take 1 [facility] 60 mg 3-15 capsule by ity of capsule 00:00: mouth in [place] the Medical morning. Branch gabapentin 2023-0 Yes TAKE 1 [facility] 300 mg 3-15 CAPSULE BY it[facility] of capsule 00:00: MOUTH ONCE [place] 00 DAILY Medical NEEDED FOR Branch PANIC ATTACKS DULoxetine 2023-0 Yes 60mg Take 1 [facility] 60 mg 3-15 capsule by ity of capsule 00:00: mouth in [place] the Medical morning. Branch gabapentin 2023-0 Yes TAKE 1 [facility] 300 mg 3-15 CAPSULE BY it[facility] of capsule 00:00: MOUTH ONCE [place] 00 DAILY Medical NEEDED FOR Branch PANIC ATTACKS DULoxetine 2023-0 Yes 60mg Take 1 [facility] 60 mg 3-15 capsule by ity of capsule 00:00: mouth in [place] the Medical morning. Branch gabapentin 2023-0 Yes TAKE 1 [facility] 300 mg 3-15 CAPSULE BY it[facility] of capsule 00:00: MOUTH ONCE [place] 00 DAILY Medical NEEDED FOR Branch PANIC ATTACKS DULoxetine 2023-0 Yes 60mg Take 1 [facility] 60 mg 3-15 capsule by [facility]y of capsule 00:00: mouth in [place] the Medical morning. Branch gabapentin 2023-0 Yes TAKE 1 [facility] 300 mg 3-15 CAPSULE BY it[facility] of capsule 00:00: MOUTH ONCE [place] 00 DAILY Medical NEEDED FOR Branch PANIC ATTACKS DULoxetine 2023-0 Yes 60mg Take 1 [facility] 60 mg 3-15 capsule by ity of capsule 00:00: mouth in [place] the Medical morning. Branch gabapentin 2023-0 Yes TAKE 1 [facility] 300 mg 3-15 CAPSULE BY it[facility] of capsule 00:00: MOUTH ONCE [place] 00 DAILY Medical NEEDED FOR Branch PANIC ATTACKS DULoxetine 2023-0 Yes 60mg Take 1 [facility] 60 mg 3-15 capsule by ity of capsule 00:00: mouth in [place] the Medical morning. Branch gabapentin 2023-0 Yes TAKE 1 [facility] 300 mg 3-15 CAPSULE BY ity of capsule 00:00: MOUTH ONCE [place] 00 DAILY Medical NEEDED FOR Branch PANIC ATTACKS DULoxetine 2023-0 Yes 60mg Take 1 [facility] 60 mg 3-15 capsule by ity of capsule 00:00: mouth in [place] the Medical morning. Branch gabapentin 2023-0 Yes TAKE 1 [facility] 300 mg 3-15 CAPSULE BY it[facility] of capsule 00:00: MOUTH ONCE [place] 00 DAILY Medical NEEDED FOR Branch PANIC ATTACKS DULoxetine 2023-0 Yes 60mg Take 1 [facility] 60 mg 3-15 capsule by ity of capsule 00:00: mouth in [place] the Medical morning. Branch gabapentin 2023-0 Yes TAKE 1 [facility] 300 mg 3-15 CAPSULE BY ity of capsule 00:00: MOUTH ONCE [place] 00 DAILY Medical NEEDED FOR Branch PANIC ATTACKS DULoxetine 2023-0 Yes 60mg Take 1 [facility] 60 mg 3-15 capsule by ity of capsule 00:00: mouth in [place] the Medical morning. Branch gabapentin 3-0 Yes TAKE 1 [facility] 300 mg 3-15 CAPSULE BY ity of capsule 00:00: MOUTH ONCE [place] 00 DAILY Medical NEEDED FOR Branch PANIC ATTACKS DULoxetine 2023-0 Yes 60mg Take 1 [facility] 60 mg 3-15 capsule by ity of capsule 00:00: mouth in [place] the Medical morning. Branch gabapentin 3-0 Yes TAKE 1 [facility] 300 mg 3-15 CAPSULE BY ity of capsule 00:00: MOUTH ONCE [place] 00 DAILY Medical NEEDED FOR Branch PANIC ATTACKS DULoxetine 3-0 Yes 60mg Take 1 [facility] 60 mg 3-15 capsule by ity of capsule 00:00: mouth in [place] the Medical morning. Branch gabapentin 3-0 Yes TAKE 1 [facility] 300 mg 3-15 CAPSULE BY ity of capsule 00:00: MOUTH ONCE [place] 00 DAILY Medical NEEDED FOR Branch PANIC ATTACKS DULoxetine 3-0 Yes 60mg Take 1 [facility] 60 mg 3-15 capsule by ity of capsule 00:00: mouth in [place] the Medical morning. Branch gabapentin 3-0 Yes TAKE 1 [facility] 300 mg 3-15 CAPSULE BY ity of capsule 00:00: MOUTH [place]CE [place] 00 DAILY Medical NEEDED FOR Branch PANIC ATTACKS DULoxetine 3-0 Yes 60mg Take 1 [facility] 60 mg 3-15 capsule by ity of capsule 00:00: mouth in [place] the Medical morning. Branch gabapentin 2023-0 Yes TAKE 1 [facility] 300 mg 3-15 CAPSULE BY ity of capsule 00:00: MOUTH ONCE [place] 00 DAILY Medical NEEDED FOR Branch PANIC ATTACKS DULoxetine 2023-0 Yes 60mg Take 1 [facility] 60 mg 3-15 capsule by ity of capsule 00:00: mouth in [place] the Medical morning. Branch gabapentin 2023-0 Yes TAKE 1 [facility] 300 mg 3-15 CAPSULE BY ity of capsule 00:00: MOUTH ONCE [place] 00 DAILY Medical NEEDED FOR Branch PANIC ATTACKS DULoxetine 2023-0 Yes 60mg Take 1 [facility] 60 mg 3-15 capsule by ity of capsule 00:00: mouth in [place] 00 the Medical morning. [place] gabapentin 2022-0 Yes TAKE 1 [facility] 300 mg 3-15 CAPSULE BY ity of capsule 00:00: MOUTH [place]CE [place] 00 DAILY Medical NEEDED FOR [place] PANIC ATTACKS DULoxetine 2022-0 Yes 60mg Take 1 [facility] rs 60 mg 3-15 capsule by ity of capsule 00:00: mouth in [place] 00 the Medical morning. [place] dexmethylph 2022-0 Yes TAKE 1 [facility] ers enidate 20 3-14 CAPSULE BY ity of mg 24 hr 00:00: MOUTH [place] capsule 00 EVERY DAY Medical IN THE [place] MORNING FOR 30 DAYS dexmethylph 2022-0 Yes TAKE 1 Univ ers enidate 20 3-14 CAPSULE BY ity of mg 24 hr 00:00: MOUTH [place] capsule 00 EVERY DAY Medical IN THE [place] MORNING FOR 30 DAYS dexmethylph 2022-0 Yes TAKE 1 [facility] ers enidate 20 3-14 CAPSULE BY ity of mg 24 hr 00:00: MOUTH [place] capsule 00 EVERY DAY Medical IN THE [place] MORNING FOR 30 DAYS dexmethylph 2022-0 Yes TAKE 1 [facility] ers enidate 20 3-14 CAPSULE BY ity of mg 24 hr 00:00: MOUTH [place] capsule 00 EVERY DAY Medical IN THE [place] MORNING FOR 30 DAYS dexmethylph 3-0 Yes TAKE 1 [facility] ers enidate 20 3-14 CAPSULE BY ity of mg 24 hr 00:00: MOUTH [place] capsule 00 EVERY DAY Medical IN THE [place] MORNING FOR 30 DAYS dexmethylph 3-0 Yes TAKE 1 Univ ers enidate 20 3-14 CAPSULE BY ity of mg 24 hr 00:00: MOUTH [place] capsule 00 EVERY DAY Medical IN THE [place] MORNING FOR 30 DAYS dexmethylph 3-0 Yes TAKE 1 [facility] ers enidate 20 3-14 CAPSULE BY ity of mg 24 hr 00:00: MOUTH [place] capsule 00 EVERY DAY Medical IN THE [place] MORNING FOR 30 DAYS dexmethylph 2023-0 Yes TAKE 1 [facility] ers enidate 20 3-14 CAPSULE BY ity of mg 24 hr 00:00: MOUTH [place] capsule 00 EVERY DAY Medical IN THE [place] MORNING FOR 30 DAYS dexmethylph 2023-0 Yes TAKE 1 Univ ers enidate 20 3-14 CAPSULE BY ity of mg 24 hr 00:00: MOUTH [place] capsule 00 EVERY DAY Medical IN THE [place] MORNING FOR 30 DAYS dexmethylph 2023-0 Yes TAKE 1 Univ ers enidate 20 3-14 CAPSULE BY ity of mg 24 hr 00:00: MOUTH [place] capsule 00 EVERY DAY Medical IN THE [place] MORNING FOR 30 DAYS dexmethylph 2022-0 Yes TAKE 1 Univ ers enidate 20 3-14 CAPSULE BY ity of mg 24 hr 00:00: MOUTH [place] capsule 00 EVERY DAY Medical IN THE [place] MORNING FOR 30 DAYS dexmethylph 2022-0 Yes TAKE 1 Univ ers enidate 20 3-14 CAPSULE BY ity of mg 24 hr 00:00: MOUTH [place] capsule 00 EVERY DAY Medical IN THE [place] MORNING FOR 30 DAYS dexmethylph 2022-0 Yes TAKE 1 Univ ers enidate 20 3-14 CAPSULE BY ity of mg 24 hr 00:00: MOUTH [place] capsule 00 EVERY DAY Medical IN THE [facility] FOR 30 DAYS dexmethylph 2022-0 Yes TAKE 1 Univ ers enidate 20 3-14 CAPSULE BY ity of mg 24 hr 00:00: MOUTH [place] capsule 00 EVERY DAY Medical IN THE [facility] FOR 30 DAYS dexmethylph 2022-0 Yes TAKE 1 Univ ers enidate 20 3-14 CAPSULE BY ity of mg 24 hr 00:00: MOUTH [place] capsule 00 EVERY DAY Medical IN THE [facility] FOR 30 DAYS dexmethylph 2022-0 Yes TAKE 1 Univ ers enidate 20 3-14 CAPSULE BY ity of mg 24 hr 00:00: MOUTH [place] capsule 00 EVERY DAY Medical IN THE [facility] FOR 30 DAYS dexmethylph 2022-0 Yes TAKE 1 Univ ers enidate 20 3-14 CAPSULE BY ity of mg 24 hr 00:00: MOUTH [place] capsule 00 EVERY DAY Medical IN THE [facility] FOR 30 DAYS dexmethylph 2022-0 Yes TAKE 1 Univ ers enidate 20 3-14 CAPSULE BY ity of mg 24 hr 00:00: MOUTH [place] capsule 00 EVERY DAY Medical IN THE [facility] FOR 30 DAYS dexmethylph 2022-0 Yes TAKE 1 Univ ers enidate 20 3-14 CAPSULE BY ity of mg 24 hr 00:00: MOUTH [place] capsule 00 EVERY DAY Medical IN THE [place] MORNING FOR 30 DAYS dexmethylph 2022-0 Yes TAKE 1 Univ ers enidate 20 3-14 CAPSULE BY ity of mg 24 hr 00:00: MOUTH [place] capsule 00 EVERY DAY Medical IN THE [facility] FOR 30 DAYS dexmethylph 3-0 Yes TAKE 1 Univ ers enidate 20 3-14 CAPSULE BY ity of mg 24 hr 00:00: MOUTH [place] capsule 00 EVERY DAY Medical IN THE [facility] FOR 30 DAYS dexmethylph 0 Yes TAKE 1 Univ ers enidate 20 3-14 CAPSULE BY ity of mg 24 hr 00:00: MOUTH [place] capsule 00 EVERY DAY Medical IN THE [place] MORNING FOR 30 DAYS dexmethylph 2022-0 Yes TAKE 1 Univ ers enidate 20 3-14 CAPSULE BY ity of mg 24 hr 00:00: MOUTH [place] capsule 00 EVERY DAY Medical IN THE [place] MORNING FOR 30 DAYS dexmethylph 2022-0 Yes TAKE 1 Univ ers enidate 20 3-14 CAPSULE BY ity of mg 24 hr 00:00: MOUTH [place] capsule 00 EVERY DAY Medical IN THE [place] MORNING FOR 30 DAYS dexmethylph 0 Yes TAKE 1 Univ ers enidate 20 3-14 CAPSULE BY ity of mg 24 hr 00:00: MOUTH [place] capsule 00 EVERY DAY Medical IN THE [facility] FOR 30 DAYS dexmethylph 2022-0 Yes TAKE 1 Univ ers enidate 20 3-14 CAPSULE BY ity of mg 24 hr 00:00: MOUTH [place] capsule 00 EVERY DAY Medical IN THE [facility] FOR 30 DAYS dexmethylph 2022-0 Yes TAKE 1 Univ ers enidate 20 3-14 CAPSULE BY ity of mg 24 hr 00:00: MOUTH [place] capsule 00 EVERY DAY Medical IN THE [facility] FOR 30 DAYS dexmethylph 2022-0 Yes TAKE 1 Univ ers enidate 20 3-14 CAPSULE BY ity of mg 24 hr 00:00: MOUTH [place] capsule 00 EVERY DAY Medical IN THE [facility] FOR 30 DAYS dexmethylph 2022-0 Yes TAKE 1 Univ ers enidate 20 3-14 CAPSULE BY ity of mg 24 hr 00:00: MOUTH [place] capsule 00 EVERY DAY Medical IN THE [facility] FOR 30 DAYS dexmethylph 2022-0 Yes TAKE 1 Univ ers enidate 20 3-14 CAPSULE BY ity of mg 24 hr 00:00: MOUTH [place] capsule 00 EVERY DAY Medical IN THE [facility] FOR 30 DAYS ketorolac 2021-03- No 30mg 30 mg, Unive rs (TORADOL) 04-20 Slow IV ity of injection 00:15: 23:30 [place], [place] 30 mg 00 :00 ONCE, 1 Medical dose, On [place] 02/16/22 at 1815, SHAYNA FENTanyl PF 2021-03- No 75ug 75 mcg, [facility] [place] (SUBLIMAZE 2-11 12-11 Slow IV ity o f (PF)) 23:15: 22:46 [place], [place] injection 00 :00 ONCE, 1 Medical 75 mcg dose, On Branch 02/16/22 at 1715, STAT iopamidol 2021-03- No [id number] 74mL 74 mL, U nivers (ISOVUE 2-11 12-11 Intravenou ity o f 370-500 mL) 21:00: 21:15 s, ONCE, 1 [place] injection 00 :00 dose, On Medica l 74 mL Sun Branch 02/16/22 at 1515, Routine metoclopram 2021-03 Yes [id number] 10mg Take 1 [facility] [place] HCl 10 2-11 tablet by ity of mg tablet 00:00: mouth [place] 00 every 6 Medical (six) Branch hours. metoclopram 2021-03 Yes [id number] 10mg Take 1 [facility] [place] HCl 10 2-11 tablet by ity of mg tablet 00:00: mouth [place] 00 every 6 Medical (six) Branch hours. metoclopram 2021-03 Yes [id number] 10mg Take 1 [facility] [place] HCl 10 2-11 tablet by ity of mg tablet 00:00: mouth [place] 00 every 6 Medical (six) Branch hours. metoclopram 2021-03 Yes [id number] 10mg Take 1 [facility] [place] HCl 10 2-11 tablet by ity of mg tablet 00:00: mouth [place] 00 every 6 Medical (six) Branch hours. metoclopram 2021-03 Yes [id number] 10mg Take 1 [facility] [place] HCl 10 2-11 tablet by ity of mg tablet 00:00: mouth [place] 00 every 6 Medical (six) Branch hours. metoclopram 2021-03 Yes [id number] 10mg Take 1 [facility] [place] HCl 10 2-11 tablet by ity of mg tablet 00:00: mouth [place] 00 every 6 Medical (six) Branch hours. metoclopram 2021- Yes [id number] 10mg Take 1 [facility] [place] HCl 10 2-11 tablet by ity of mg tablet 00:00: mouth [place] 00 every 6 Medical (six) Branch hours. metoclopram 2021- Yes [id number] 10mg Take 1 [facility] [place] HCl 10 2-11 tablet by ity of mg tablet 00:00: mouth [place] 00 every 6 Medical (six) Branch hours. metoclopram 2021-03- No [id number] 10mg Take 1 [facility] [place] HCl 10 [...] Until Discontinu ed, Routine docusate 2021-03 Yes [id number] 200mg Take 2 U nivers 100 mg 2-07 capsules ity of capsule 00:00: by mouth [place] 00 once daily Medical as needed Branch for Constipati on. ferrous 2021-03 Yes [id number] 325mg Take 1 [facility] [place] sulfate 325 2-07 tablet by ity of mg (65 mg 00:00: mouth [place] iron) 00 every Medical tablet other day. Branch ibuprofen 2021-03 Yes [id number] 600mg Take 1 [facility] 600 mg 2-07 [...] Until Discontinu ed, Routine docusate 2021-03 Yes [id number] 200mg Take 2 U nivers 100 mg 2-07 capsules ity of capsule 00:00: by mouth [place] 00 once daily Medical as needed Branch for Constipati on. ferrous 2021-03 Yes [id number] 325mg Take 1 [facility] [place] sulfate 325 2-07 tablet by ity of mg (65 mg 00:00: mouth [place] iron) 00 every Medical tablet other day. Branch ibuprofen 2021-03 Yes [id number] 600mg Take 1 [facility] 600 mg 2-07 tablet by ity of tablet 00:00: mouth [place] 00 every 6 Medical (six) Branch hours as needed (Pain). Take with food or milk. docusate 2021-03 Yes [id number] 200mg Take 2 U nivers 100 mg 2-07 capsules ity of capsule 00:00: by mouth [place] 00 once daily Medical as needed Branch for Constipati on. ferrous 2021-03 Yes [id number] 325mg Take 1 [facility] [place] sulfate 325 2-07 tablet by ity of mg (65 mg 00:00: mouth [place] iron) 00 every Medical tablet other day. Branch ibuprofen 2021-03 Yes [id number] 600mg Take 1 [facility] 600 mg 2-07 tablet by ity of tablet 00:00: mouth [place] 00 every 6 Medical (six) Branch hours as needed (Pain). Take with food or milk. docusate 2021-03 Yes [id number] 200mg Take 2 U nivers 100 mg 2-07 capsules ity of capsule 00:00: by mouth [place] 00 once daily Medical as needed Branch for Constipati on. ferrous 2021-03 Yes [id number] 325mg Take 1 [facility] [place] sulfate 325 2-07 tablet by ity of mg (65 mg 00:00: mouth [place] iron) 00 every Medical tablet other day. Branch ibuprofen 2021-03 Yes [id number] 600mg Take 1 [facility] 600 mg 2-07 tablet by ity of tablet 00:00: mouth [place] 00 every 6 Medical (six) Branch hours as needed (Pain). Take with food or milk. docusate 2021-03 Yes [id number] 200mg Take 2 [facility] nivers 100 mg 2-07 capsules ity of capsule 00:00: by mouth [place] 00 once daily Medical as needed Branch for Constipati on. ferrous 2021-03 Yes [id number] 325mg Take 1 [facility] [place] sulfate 325 2-07 tablet by ity of mg (65 mg 00:00: mouth [place] iron) 00 every Medical tablet other day. Branch ibuprofen 2021-03 Yes [id number] 600mg Take 1 [facility] 600 mg 2-07 tablet by ity of tablet 00:00: mouth [place] 00 every 6 Medical (six) Branch hours as needed (Pain). Take with food or milk. docusate 2021-03 Yes [id number] 200mg Take 2 U nivers 100 mg 2-07 capsules ity of capsule 00:00: by mouth [place] 00 once daily Medical as needed Branch for Constipati on. ferrous 2021-03 Yes [id number] 325mg Take 1 [facility] [place] sulfate 325 2-07 tablet by ity of mg (65 mg 00:00: mouth [place] iron) 00 every Medical tablet other day. Branch ibuprofen 2021-03 Yes [id number] 600mg Take 1 [facility] 600 mg 2-07 tablet by ity of tablet 00:00: mouth [place] 00 every 6 Medical (six) Branch hours as needed (Pain). Take with food or milk. docusate 2021-03 Yes [id number] 200mg Take 2 [facility] nivers 100 mg 2-07 capsules ity of capsule 00:00: by mouth [place] 00 once daily Medical as needed Branch for Constipati on. ferrous 2021-03 Yes [id number] 325mg Take 1 [facility] [place] sulfate 325 2-07 tablet by ity of mg (65 mg 00:00: mouth [place] iron) 00 every Medical tablet other day. Branch ibuprofen 2021-03 Yes [id number] 600mg Take 1 [facility] 600 mg 2-07 tablet by ity of tablet 00:00: mouth [place] 00 every 6 Medical (six) Branch hours as needed (Pain). Take with food or milk. docusate 2021-03 Yes [id number] 200mg Take 2 [facility] nivers 100 mg 2-07 capsules ity of capsule 00:00: by mouth [place] 00 once daily Medical as needed Branch for Constipati on. ferrous 2021-03 Yes [id number] 325mg Take 1 [facility] [place] sulfate 325 2-07 tablet by ity of mg (65 mg 00:00: mouth [place] iron) 00 every Medical tablet other day. Branch ibuprofen 2021-03 Yes [id number] 600mg Take 1 [facility] 600 mg 2-07 tablet by ity of tablet 00:00: mouth [place] 00 every 6 Medical (six) Branch hours as needed (Pain). Take with food or milk. docusate 2021-03 Yes [id number] 200mg Take 2 U nivers 100 mg 2-07 capsules ity of capsule 00:00: by mouth [place] 00 once daily Medical as needed Branch for Constipati on. ferrous 2021-03 Yes [id number] 325mg Take 1 [facility] [place] sulfate 325 2-07 tablet by ity of mg (65 mg 00:00: mouth [place] iron) 00 every Medical tablet other day. Branch ibuprofen 2021-03 Yes [id number] 600mg Take 1 [facility] 600 mg 2-07 tablet by ity of tablet 00:00: mouth [place] 00 every 6 Medical (six) Branch hours as needed (Pain). Take with food or milk. docusate 2021-03 Yes [id number] 200mg Take 2 [facility]ivers 100 mg 2-07 capsules ity of capsule 00:00: by mouth [place] 00 once daily Medical as needed Branch for Constipati on. ferrous 2021-03 Yes [id number] 325mg Take 1 [facility] [place] sulfate 325 2-07 tablet by ity of mg (65 mg 00:00: mouth [place] iron) 00 every Medical tablet other day. Branch ibuprofen 2021-03 Yes [id number] 600mg Take 1 [facility] 600 mg 2-07 tablet by ity of tablet 00:00: mouth [place] 00 every 6 Medical (six) Branch hours as needed (Pain). Take with food or milk. docusate 2021-03- No [id number] 200mg Take 2 [facility] 100 mg 2- 04-11 capsules ity of capsule 00:00: 00:00 by mouth [place] 00 :00 once daily Medical as needed Branch for Constipati on. ferrous 2021-03- No [id number] 325mg Take 1 U nivers sulfate 325 2- 04-11 tablet by it y of mg (65 mg 00:00: 00:00 mouth [place] iron) 00 :00 every Medical tablet other day. Branch ibuprofen 2021-03- No [id number] 600mg Take 1 [facility] 600 mg 2- 04-11 tablet by ity of tablet 00:00: 00:00 mouth [place] 00 :00 every 6 Medical (six) Branch hours as needed (Pain). Take with food or milk. foLIC acid 2021-03- No [id number] 1mg Take 1 [facility] 1 mg tablet 04-15-08 tablet by it y of 00:00: 05:59 mouth in [place] 00 :00 the Medical morning Branch for 90 days. foLIC acid 2021-03- No [id number] 1mg Take 1 [facility] 1 mg tablet 2-08 tablet by it y of 00:00: 05:59 mouth in [place] 00 :00 the Medical morning Branch for 90 days. foLIC acid 2021-03- No [id number] 1mg Take 1 [facility] 1 mg tablet 04-15-08 tablet by it y of 00:00: 05:59 mouth in [place] 00 :00 the Medical morning Branch for 90 days. foLIC acid 2021-03- No [id number] 1mg Take 1 [facility] 1 mg tablet 04-15- tablet by it y of 00:00: 05:59 mouth in [place] 00 :00 the Medical morning Branch for 90 days. foLIC acid 2021-03- No [id number] 1mg Take 1 [facility] 1 mg tablet 04-15- tablet by it y of 00:00: 05:59 mouth in [place] 00 :00 the Medical morning Branch for 90 days. foLIC acid 2021-03- No [id number] 1mg Take 1 Univers 1 mg tablet 04-15- tablet by it y of 00:00: 05:59 mouth in [place] 00 :00 the Medical morning Branch for 90 days. foLIC acid 2021-03- No [id number] 1mg Take 1 [facility] 1 mg tablet 04-15 tablet by it y of 00:00: 05:59 mouth in [place] 00 :00 the Medical morning Branch for 90 days. foLIC acid 2021-03- No [id number] 1mg Take 1 [facility] 1 mg tablet 04-15- tablet by it y of 00:00: 05:59 mouth in [place] 00 :00 the Medical morning Branch for 90 days. foLIC acid 2021-03- No [id number] 1mg Take 1 [facility] 1 mg tablet 04-15- tablet by it y of 00:00: 05:59 mouth in [place] 00 :00 the Medical morning Branch for 90 days. ibuprofen 2021-03 Yes 600mg 600 mg, Univ ers (IBU) 2-06 Oral, ity of tablet 600 19:22: Q6HPRN[place] mg 45 [place] Medical on [facility] Branch 02/11/22 at 1322, Until Discontinu ed, Routine, Pain (scale 4-6) acetaminoph 2021-03 Yes 650mg 650 mg, Un [place] en 2-06 Oral, ity of (TYLENOL) 19:22: Q6HPRN, [place] tablet 650 45 Starting Medic al mg on e Branch 02/11/22 at 1322, Until Discontinu ed, Routine, Pain (scale 1-3) diphenhydrA 2022-1 Yes 25mg 25 mg, Univ ers MINE 2-06 Oral, ity of (BENADRYL) 19:22: Q6HPRN, [place] tablet 25 45 Starting Medica l mg on Thu Branch 02/11/22 at 1322, Until Discontinu ed, Routine, Sleep, Itching ondansetron 2021-03 Yes 4mg 4 mg, Slow Univers (ZOFRAN 2-06 IV Push, ity of (PF)) 19:22: Q8HPRN, [place] injection 4 45 Starting Medi tressa mg on Thu Branch 02/11/22 at 1322, Until Discontinu ed, Routine, Nausea and Vomiting (N/V) simethicone 2021-03 Yes 160mg 160 mg, Un [place] (GAS RELIEF 2-06 Oral, ity of (SIMETHICON 19:22: PC+HSPRN, [place] E)) 45 Starting Medical chewable on Thu tablet 160 02/11/22 at mg 1322, Until Discontinu ed, Routine, Gas docusate 2021-03 Yes 200mg 200 mg, Unive rs (COLACE) 2-06 Oral, ity of capsule 200 19:22: QDAILYPRN, [place] mg 45 Starting Medical on [facility] Branch 02/11/22 at 1322, Until Discontinu ed, Routine, Constipati on magnesium 2021-03 Yes 30mL 30 mL, Univer s hydroxide 2-06 Oral, ity of (MILK OF 19:22: QDAILYPRN, [place] MAGNESIA) 45 Starting Medica l 400 mg/5 mL on Thu [place] suspension 02/11/22 at 30 mL 1322, Until [...] of 30 units in 16:59: 19:22 Infusion, [place] NS 500 mL 29 :49 SEE-INSTRU Medi tressa IV infusion CTIONS, Branc h Starting on Thu02/11/[address] at 300 mL/hr for 1 hr then 150 mL/hr for 1 hr. & nbsp; For post delivery uterotonic
PIB 2021-03 No Epidural, Univers ropivacaine 04-14 CONTINUOUS i ty of 0.2 % 16:30: 18:20 PRN, [place] (NAROPIN 00 :56 Starting Medical (PF)) on [facility] epidural 02/11/22 at infusion 1030, Until 02/11/22 at 1220, Routine, Intra-op bupivacaine 2021-03 No Caudal Uni vers (preserv 04-14 Block, ity of free) 15:33: 18:20 ONCE INTRA [place] (SENSORCAIN 00 :56 PROCEDURE, Me dical E MPF) 0.25 Starting Bran ch % (2.5 on Tue mg/mL) 02/11/22 at injection 0933, Until e 02/11/22 at 1220, Routine, Intra-op lamoTRIgine 2021-03 Yes 75mg 75 mg, Univ ers (LAMICTAL) 04-14 Oral, ity of tablet 75 13:30: QAM-0730, [place] mg 00 First dose Medical on [facility] 02/11/22 at 0730, Until Discontinu ed, Routine ondansetron 2021-03 No 4mg 4 mg, Slow Univers (ZOFRAN 04-14 IV Push, ity of (PF)) 12:40: 12:44 ONCE, On [place] injection 4 00 :00 Tue Medical mg 02/11/22 at Branch 0645, For 1 dose
Do ses of ondansetro n 16 mg and above need to be administer ed via IV piggyback. For Dose >=24mg ECG monitoring is advisable.
ropivacaine 2021-03 No Epidural, Univers 0.2 % 04-14 CONTINUOUS ity of (NAROPIN 06:45: 18:20 PRN, [place] (PF)) 00 :56 Starting Medical epidural on [facility] infusion 02/11/22 at 0045, Until Discontinu ed, Routine, Intra-op lactated 2022-1 2022- No 500mL at 999 Unive rs ringers IV 04-14 mL/hr, 500 it y of infusion 06:45: 06:16 mL, IV [place] 500 mL 00 :00 Infusion, Medical ONCE, 1 Branch dose, On Thu02/11/22 at 0045, Routine lidocaine-e 2021-03- No Intraderma Univers pinephrine 04-14 l, ONCE [...] Branch mg/5 mL Starting solution 30 on [facility] mL 02/10/22 at 2355, Until Thu02/11/22 at 0016, Routine, Surgery/Pr ocedure lamoTRIgine 2021-03 Yes 100mg 100 mg, Un a[place]ree (LAMICTAL) 04-14 Oral, QHS, ity of tablet 100 03:00: First dose [place] mg 00 on [facility] 02/10/22 at Branch 2100, Until Discontinu ed, Routine proMETHazin 2021-03- No 25mg 25 mg, IV Univers e 04-14 Piggyback, ity of (PHENERGAN) 00:45: 00:59 at 200 [place] 25 mg in [place] 00 :00 mL/hr Medical 50 mL IV Administer Branc h piggyback over 15 (CNR) Minutes, ONCE, 1 dose, On [facility] 02/10/22 at 1845, Routine butorphanol 2021-03- No 1mg 1 mg, Univ ers (STADOL) 04-14 Intravenou ity of injection 1 00:45: 00:09 s, ONCE, 1 [place] mg 00 :00 dose, On Medical [facility] 02/10/22 at 1845, Routine oxytocin 2022-1 2022- No 2mU/min at 2-40 Un [place] (PITOCIN) 2- 12-06 mL/hr, IV ity of 30 units in 00:02: 19:22 Infusion, [place] NS 500 mL 47 :49 TITRATE, Medica [...] No 100mg Take 100 Univers 100 mg 04-13 12-05 mg by ity of tablet 17:04: 00:00 mouth at [place] 29 :[address] lamoTRIgine 2021-03- No 100mg Take 100 Univers 100 mg 04-13 12-05 mg by ity of tablet 17:04: 00:00 mouth at [place] 29 :[address] 2021-03 Yes 1{tbl} 1 tablet, Un [...] dose, On Thu01/30/22 at 1645, SHAYNA magnesium 2021-03- No 2g [...] 18:07: mouth at [place] tablet [address] lamoTRIgine 2021-03 Yes 100mg Take 100 U nivers (LAMICTAL) 1-24 mg by ity of 100 mg 18:07: mouth at [place] tablet [address] lamoTRIgine 2021-03 Yes 100mg Take 100 U nivers (LAMICTAL) 1-24 mg by ity of 100 mg 18:07: mouth at [place] tablet [address] Branch lamoTRIgine 2021-03 Yes 100mg Take 100 U nivers (LAMICTAL) 1-24 mg by ity of 100 mg 18:07: mouth at [place] tablet [address] Branch lamoTRIgine 2021-03 Yes 100mg Take 100 U nivers (LAMICTAL) 1-24 mg by ity of 100 mg 18:07: mouth at [place] tablet [address] Branch proMETHazin 2021-03 Yes [id number] 25mg Take 1 Univers e 25 mg 1-15 tablet by ity of tablet 00:00: mouth [place] 00 every 4 Medical (four) Branch hours as needed for Nausea and Vomiting (N/V). proMETHazin 2021-03 Yes [id number] 25mg Take 1 Univers e 25 mg 1-15 tablet by ity of tablet 00:00: mouth [place] 00 every 4 Medical (four) Branch hours as needed for Nausea and Vomiting (N/V). proMETHazin 2021-03 Yes [id number] 25mg Take 1 Univers e 25 mg 1-15 tablet by ity of tablet 00:00: mouth [place] 00 every 4 Medical (four) Branch hours as needed for Nausea and Vomiting (N/V). proMETHazin 2022-1 Yes [id number] 25mg Take 1 Univers e 25 mg 1-15 tablet by ity of tablet 00:00: mouth [place] 00 every 4 Medical (four) Branch hours as needed for Nausea and Vomiting (N/V). proMETHazin 2021-03 Yes [id number] 25mg Take 1 Univers e 25 mg 1-15 tablet by ity of tablet 00:00: mouth [place] 00 every 4 Medical (four) Branch hours as needed for Nausea and Vomiting (N/V). proMETHazin 2021-03 Yes [id number] 25mg Take 1 Univers e 25 mg 1-15 tablet by ity of tablet 00:00: mouth [place] 00 every 4 Medical (four) Branch hours as needed for Nausea and Vomiting (N/V). proMETHazin 2021-03 Yes [id number] 25mg Take 1 Univers e 25 mg 1-15 tablet by ity of tablet 00:00: mouth [place] 00 every 4 Medical (four) Branch hours as needed for Nausea and Vomiting (N/V). proMETHazin 2021-03 Yes [id number] 25mg Take 1 Univers e 25 mg 1-15 tablet by ity of tablet 00:00: mouth [place] 00 every 4 Medical (four) Branch hours as needed for Nausea and Vomiting (N/V). proMETHazin 2021-03 Yes [id number] 25mg Take 1 Univers e 25 mg 1-15 tablet by ity of tablet 00:00: mouth [place] 00 every 4 Medical (four) Branch hours as needed for Nausea and Vomiting (N/V). proMETHazin 2021-03- No [id number] 25mg Take 1 Univers e 25 mg 1-15 12-05 tablet by ity of tablet 00:00: 00:00 mouth [place] 00 :00 every 4 Medical (four) Branch hours as needed for Nausea and Vomiting (N/V). proMETHazin 2021-03- No [id number] 25mg Take 1 Univers e 25 mg 1-15 12-05 tablet by ity of tablet 00:00: 00:00 mouth [place] 00 :00 every 4 Medical (four) Branch hours as needed for Nausea and Vomiting (N/V). lamoTRIgine 2021-03 Yes [id number] 75mg Take 3 Univers 25 mg 1-10 tablets by ity of tablet 00:00: mouth [place] 00 every Medical morning. Branch lamoTRIgine 2021-03 Yes [id number] 100mg Take 1 Univers (LAMICTAL) 1-10 tablet by ity of 100 mg 00:00: mouth at [place] tablet 00 bedtime. Medical Branch lamoTRIgine 2021-03 Yes [id number] 75mg Take 3 [facility] 25 mg 1-10 tablets by ity of tablet 00:00: mouth [place] 00 every Medical morning. Branch lamoTRIgine 2021-03 Yes [id number] 100mg Take 1 Univers (LAMICTAL) 1-10 tablet by ity of 100 mg 00:00: mouth at [place] tablet 00 bedtime. Medical Branch lamoTRIgine 2021-03 Yes [id number] 75mg Take 3 [facility] 25 mg 1-10 tablets by ity of tablet 00:00: mouth [place] 00 every Medical morning. Branch lamoTRIgine 2021-03 Yes [id number] 100mg Take 1 Univers (LAMICTAL) 1-10 tablet by ity of 100 mg 00:00: mouth at [place] tablet 00 bedtime. [facility] Branch lamoTRIgine 2021-03 Yes [id number] 75mg Take 3 Univers 25 mg 1-10 tablets by ity of tablet 00:00: mouth [place] 00 every Medical morning. Branch lamoTRIgine 2021-03 Yes [id number] 100mg Take 1 Univers (LAMICTAL) 1-10 tablet by ity of 100 mg 00:00: mouth at [place] tablet 00 bedtime. [facility] Branch lamoTRIgine 2021-03 Yes [id number] 75mg Take 3 Univers 25 mg 1-10 tablets by ity of tablet 00:00: mouth [place] 00 every Medical morning. Branch lamoTRIgine 2021-03 Yes [id number] 100mg Take 1 Univers (LAMICTAL) 1-10 tablet by ity of 100 mg 00:00: mouth at [place] tablet 00 bedtime. Medical Branch lamoTRIgine 2021-03 Yes [id number] 75mg Take 3 [facility] 25 mg 1-10 tablets by ity of tablet 00:00: mouth [place] 00 every Medical morning. Branch lamoTRIgine 2021-03 Yes [id number] 100mg Take 1 Univers (LAMICTAL) 1-10 tablet by ity of 100 mg 00:00: mouth at [place] tablet 00 bedtime. [facility] Branch lamoTRIgine 2021-03 Yes [id number] 75mg Take 3 [facility] 25 mg 1-10 tablets by ity of tablet 00:00: mouth [place] 00 every Medical morning. Branch lamoTRIgine 2021-03 Yes [id number] 100mg Take 1 Univers (LAMICTAL) 1-10 tablet by ity of 100 mg 00:00: mouth at [place] tablet 00 bedtime. Medical Branch lamoTRIgine 2021-03 Yes [id number] 75mg Take 3 [facility] 25 mg 1-10 tablets by ity of tablet 00:00: mouth [place] 00 every Medical morning. Branch lamoTRIgine 2021-03 Yes [id number] 100mg Take 1 Univers (LAMICTAL) 1-10 tablet by ity of 100 mg 00:00: mouth at [place] tablet 00 bedtime. [facility] Branch lamoTRIgine 2021-03 Yes [id number] 75mg Take 3 [facility] 25 mg 1-10 tablets by ity of tablet 00:00: mouth [place] 00 every Medical morning. Branch lamoTRIgine 2021-03 Yes [id number] 100mg Take 1 Univers (LAMICTAL) 1-10 tablet by ity of 100 mg 00:00: mouth at [place] tablet 00 bedtime. [facility] Branch lamoTRIgine 2021-03 Yes [id number] 75mg Take 3 [facility] 25 mg 1-10 tablets by ity of tablet 00:00: mouth [place] 00 every Medical morning. Branch lamoTRIgine 2021-03 Yes [id number] 100mg Take 1 Univers (LAMICTAL) 1-10 tablet by ity of 100 mg 00:00: mouth at [place] tablet 00 bedtime. [facility] Branch lamoTRIgine 2021-03 Yes [id number] 75mg Take 3 [facility] 25 mg 1-10 tablets by ity of tablet 00:00: mouth [place] 00 every Medical morning. Branch lamoTRIgine 2021-03 Yes [id number] 100mg Take 1 Univers (LAMICTAL) 1-10 tablet by ity of 100 mg 00:00: mouth at [place] tablet 00 bedtime. Medical Branch lamoTRIgine 2021-03 Yes [id number] 75mg Take 3 [facility] 25 mg 1-10 tablets by ity of tablet 00:00: mouth [place] 00 every Medical morning. Branch lamoTRIgine 2021-03 Yes [id number] 100mg Take 1 Univers (LAMICTAL) 1-10 tablet by ity of 100 mg 00:00: mouth at [place] tablet 00 bedtime. Medical Branch lamoTRIgine 2021-03 Yes [id number] 75mg Take 3 [facility] 25 mg 1-10 tablets by ity of tablet 00:00: mouth [place] 00 every Medical morning. Branch lamoTRIgine 2021-03 Yes [id number] 100mg Take 1 Univers (LAMICTAL) 1-10 tablet by ity of 100 mg 00:00: mouth at [place] tablet 00 bedtime. Medical Branch lamoTRIgine 2021-03 Yes [id number] 75mg Take 3 [facility] 25 mg 1-10 tablets by ity of tablet 00:00: mouth [place] 00 every Medical morning. Branch lamoTRIgine 2021-03 Yes [id number] 100mg Take 1 Univers (LAMICTAL) 1-10 tablet by ity of 100 mg 00:00: mouth at [place] tablet 00 bedtime. Medical Branch lamoTRIgine 2021-03 Yes [id number] 75mg Take 3 [facility] 25 mg 1-10 tablets by ity of tablet 00:00: mouth [place] 00 every Medical morning. Branch lamoTRIgine 2021-03 Yes [id number] 100mg Take 1 Univers (LAMICTAL) 1-10 tablet by ity of 100 mg 00:00: mouth at [place] tablet 00 bedtime. Medical Branch lamoTRIgine 2021-03 Yes [id number] 75mg Take 3 [facility] 25 mg 1-10 tablets by ity of tablet 00:00: mouth [place] 00 every Medical morning. Branch lamoTRIgine 2021-03 Yes [id number] 100mg Take 1 Univers (LAMICTAL) 1-10 tablet by ity of 100 mg 00:00: mouth at [place] tablet 00 bedtime. Medical Branch lamoTRIgine 2021-03 Yes [id number] 75mg Take 3 [facility] 25 mg 1-10 tablets by ity of tablet 00:00: mouth [place] 00 every Medical morning. Branch lamoTRIgine 2021-03 Yes [id number] 100mg Take 1 Univers (LAMICTAL) 1-10 tablet by ity of 100 mg 00:00: mouth at [place] tablet 00 bedtime. Medical Branch lamoTRIgine 2021-03 Yes [id number] 75mg Take 3 [facility] 25 mg 1-10 tablets by ity of tablet 00:00: mouth [place] 00 every Medical morning. Branch lamoTRIgine 2022-1 Yes [id number] 100mg Take 1 Univers (LAMICTAL) 1-10 tablet by ity of 100 mg 00:00: mouth at [place] tablet 00 bedtime. Medical Branch lamoTRIgine 2021-03 Yes [id number] 75mg Take 3 [facility] 25 mg 1-10 tablets by ity of tablet 00:00: mouth [place] 00 every Medical morning. Branch lamoTRIgine 2021-03 Yes [id number] 100mg Take 1 Univers (LAMICTAL) 1-10 tablet by ity of 100 mg 00:00: mouth at [place] tablet 00 bedtime. Medical Branch lamoTRIgine 2021-03 Yes [id number] 75mg Take 3 [facility] 25 mg 1-10 tablets by ity of tablet 00:00: mouth [place] 00 every Medical morning. Branch lamoTRIgine 2021-03 Yes [id number] 100mg Take 1 Univers (LAMICTAL) 1-10 tablet by ity of 100 mg 00:00: mouth at [place] tablet 00 bedtime. Medical Branch lamoTRIgine 2021-03 Yes [id number] 75mg Take 3 [facility] 25 mg 1-10 tablets by ity of tablet 00:00: mouth [place] 00 every Medical morning. Branch lamoTRIgine 2021-03 Yes [id number] 100mg Take 1 Univers (LAMICTAL) 1-10 tablet by ity of 100 mg 00:00: mouth at [place] tablet 00 bedtime. Medical Branch lamoTRIgine 2021-03 Yes [id number] 75mg Take 3 [facility] 25 mg 1-10 tablets by ity of tablet 00:00: mouth [place] 00 every Medical morning. Branch lamoTRIgine 2021-03 Yes [id number] 100mg Take 1 Univers (LAMICTAL) 1-10 tablet by ity of 100 mg 00:00: mouth at [place] tablet 00 bedtime. Medical Branch lamoTRIgine 2021-03 Yes [id number] 75mg Take 3 Univers 25 mg 1-10 tablets by ity of tablet 00:00: mouth [place] 00 every Medical morning. Branch lamoTRIgine 2021-03 Yes [id number] 100mg Take 1 Univers (LAMICTAL) 1-10 tablet by ity of 100 mg 00:00: mouth at [place] tablet 00 bedtime. Medical Branch lamoTRIgine 2021-03 Yes [id number] 75mg Take 3 [facility] 25 mg 1-10 tablets by ity of tablet 00:00: mouth [place] 00 every Medical morning. Branch lamoTRIgine 2021-03 Yes [id number] 100mg Take 1 Univers (LAMICTAL) 1-10 tablet by ity of 100 mg 00:00: mouth at [place] tablet 00 bedtime. Medical Branch lamoTRIgine 2021-03 Yes [id number] 75mg Take 3 Univers 25 mg 1-10 tablets by ity of tablet 00:00: mouth [place] 00 every Medical morning. Branch lamoTRIgine 2021-03 Yes [id number] 100mg Take 1 Univers (LAMICTAL) 1-10 tablet by ity of 100 mg 00:00: mouth at [place] tablet 00 bedtime. Medical Branch lamoTRIgine 2021-03 Yes [id number] 75mg Take 3 [facility] 25 mg 1-10 tablets by ity of tablet 00:00: mouth [place] 00 every Medical morning. Branch lamoTRIgine 2021-03 Yes [id number] 100mg Take 1 Univers (LAMICTAL) 1-10 tablet by ity of 100 mg 00:00: mouth at [place] tablet 00 bedtime. Medical Branch lamoTRIgine 2021-03 Yes [id number] 75mg Take 3 [facility] 25 mg 1-10 tablets by ity of tablet 00:00: mouth [place] 00 every Medical morning. Branch lamoTRIgine 2021-03 Yes [id number] 100mg Take 1 Univers (LAMICTAL) 1-10 tablet by ity of 100 mg 00:00: mouth at [place] tablet 00 bedtime. Medical Branch lamoTRIgine 2021-03 Yes [id number] 75mg Take 3 [facility] 25 mg 1-10 tablets by ity of tablet 00:00: mouth [place] 00 every Medical morning. Branch lamoTRIgine 2021-03 Yes [id number] 100mg Take 1 Univers (LAMICTAL) 1-10 tablet by ity of 100 mg 00:00: mouth at [place] tablet 00 bedtime. Medical Branch lamoTRIgine 2021-03 Yes [id number] 75mg Take 3 [facility] 25 mg 1-10 tablets by ity of tablet 00:00: mouth [place] 00 every Medical morning. Branch lamoTRIgine 2021-03 Yes [id number] 100mg Take 1 Univers (LAMICTAL) 1-10 tablet by ity of 100 mg 00:00: mouth at [place] tablet 00 bedtime. Medical Branch lamoTRIgine 2021-03 Yes [id number] 75mg Take 3 [facility] 25 mg 1-10 tablets by ity of tablet 00:00: mouth [place] 00 every Medical morning. Branch lamoTRIgine 2021-03 Yes [id number] 100mg Take 1 Univers (LAMICTAL) 1-10 tablet by ity of 100 mg 00:00: mouth at [place] tablet 00 bedtime. Medical Branch lamoTRIgine 2021-03 Yes [id number] 75mg Take 3 [facility] 25 mg 1-10 tablets by ity of tablet 00:00: mouth [place] 00 every Medical morning. Branch lamoTRIgine 2021-03 Yes [id number] 100mg Take 1 Univers (LAMICTAL) 1-10 tablet by ity of 100 mg 00:00: mouth at [place] tablet 00 bedtime. Medical Branch lamoTRIgine 2021-03 Yes [id number] 75mg Take 3 [facility] 25 mg 1-10 tablets by ity of tablet 00:00: mouth [place] 00 every Medical morning. Branch lamoTRIgine 2021-03 Yes [id number] 100mg Take 1 Univers (LAMICTAL) 1-10 tablet by ity of 100 mg 00:00: mouth at [place] tablet 00 bedtime. Medical Branch lamoTRIgine 2021-03 Yes [id number] 75mg Take 3 [facility] 25 mg 1-10 tablets by ity of tablet 00:00: mouth [place] 00 every Medical morning. Branch lamoTRIgine 2021-03 Yes [id number] 100mg Take 1 Univers (LAMICTAL) 1-10 tablet by ity of 100 mg 00:00: mouth at [place] tablet 00 bedtime. Medical Branch lamoTRIgine 2021-03 Yes [id number] 100mg Take 1 Univers (LAMICTAL) 1-10 tablet by ity of 100 mg 00:00: mouth at [place] tablet 00 bedtime. Medical Branch lamoTRIgine 2021-03 Yes [id number] 100mg Take 1 Univers (LAMICTAL) 1-10 tablet by ity of 100 mg 00:00: mouth at [place] tablet 00 bedtime. Medical Branch lamoTRIgine 2021-03 Yes [id number] 100mg Take 1 Univers (LAMICTAL) 1-10 tablet by ity of 100 mg 00:00: mouth at [place] tablet 00 bedtime. Medical Branch lamoTRIgine 2021-03 Yes [id number] 100mg Take 1 Univers (LAMICTAL) 1-10 tablet by ity of 100 mg 00:00: mouth at [place] tablet 00 bedtime. Medical Branch lamoTRIgine 2021-03 Yes [id number] 100mg Take 1 Univers (LAMICTAL) 1-10 tablet by ity of 100 mg 00:00: mouth at [place] tablet 00 bedtime. Medical Branch lamoTRIgine 2021-03 Yes [id number] 100mg Take 1 Univers (LAMICTAL) 1-10 tablet by ity of 100 mg 00:00: mouth at [place] tablet 00 bedtime. Medical Branch lamoTRIgine 2021-03 Yes [id number] 100mg Take 1 Univers (LAMICTAL) 1-10 tablet by ity of 100 mg 00:00: mouth at [place] tablet 00 bedtime. Medical Branch lamoTRIgine 2021-03 Yes [id number] 100mg Take 1 Univers (LAMICTAL) 1-10 tablet by ity of 100 mg 00:00: mouth at [place] tablet 00 bedtime. Medical Branch lamoTRIgine 2021-03 Yes [id number] 100mg Take 1 Univers (LAMICTAL) 1-10 tablet by ity of 100 mg 00:00: mouth at [place] tablet 00 bedtime. Medical Branch lamoTRIgine 2021-03 Yes [id number] 100mg Take 1 Univers (LAMICTAL) 1-10 tablet by ity of 100 mg 00:00: mouth at [place] tablet 00 bedtime. Medical Branch lamoTRIgine 2021-03 Yes [id number] 100mg Take 1 Univers (LAMICTAL) 1-10 tablet by ity of 100 mg 00:00: mouth at [place] tablet 00 bedtime. Medical Branch lamoTRIgine 2021-03 Yes [id number] 100mg Take 1 Univers (LAMICTAL) 1-10 tablet by ity of 100 mg 00:00: mouth at [place] tablet 00 bedtime. Medical Branch lamoTRIgine 2021-03 Yes [id number] 100mg Take 1 Univers (LAMICTAL) 1-10 tablet by ity of 100 mg 00:00: mouth at [place] tablet 00 bedtime. Medical Branch lamoTRIgine 2021-03 Yes [id number] 100mg Take 1 Univers (LAMICTAL) 1-10 tablet by ity of 100 mg 00:00: mouth at [place] tablet 00 bedtime. Medical Branch lamoTRIgine 2021-03 Yes [id number] 100mg Take 1 Univers (LAMICTAL) 1-10 tablet by ity of 100 mg 00:00: mouth at [place] tablet 00 bedtime. Medical Branch lamoTRIgine 2021-03 Yes [id number] 100mg Take 1 Univers (LAMICTAL) 1-10 tablet by ity of 100 mg 00:00: mouth at [place] tablet 00 bedtime. Medical Branch lamoTRIgine 2021-03 Yes [id number] 100mg Take 1 Univers (LAMICTAL) 1-10 tablet by ity of 100 mg 00:00: mouth at [place] tablet 00 bedtime. [facility] Branch lamoTRIgine 2021-03 Yes [id number] 100mg Take 1 Univers (LAMICTAL) 1-10 tablet by ity of 100 mg 00:00: mouth at [place] tablet 00 bedtime. [facility] Branch lamoTRIgine 2021-03 Yes [id number] 100mg Take 1 Univers (LAMICTAL) 1-10 tablet by ity of 100 mg 00:00: mouth at [place] tablet 00 bedtime. Medical Branch lamoTRIgine 2021-03- No [id number] 75mg Take 3 Univers 25 mg 1-10 05-03 tablets by ity of tablet 00:00: 00:00 mouth [place] 00 :00 every Medical morning. Branch lamoTRIgine 2021-03- No [id number] 75mg Take 3 Univers 25 mg 1-10 [...] combo pack Branch foLIC acid 2021-03- No [id number] 4mg Take 4 Univers 1 mg tablet 0-27 12-27 tablets by i ty of 00:00: 05:59 mouth in [place] 00 :00 the Medical morning Branch for 60 days. foLIC acid 2021-03- No [id number] 4mg Take 4 Univers 1 mg tablet 0-27 12-27 tablets by i ty of 00:00: 05:59 mouth in [place] 00 :00 the Medical morning Branch for 60 days. foLIC acid 2021-03- No [id number] 4mg Take 4 Univers 1 mg tablet 0-27 12-27 tablets by i ty of 00:00: 05:59 mouth in [place] 00 :00 the Medical morning Branch for 60 days. foLIC acid 2021-03- No [id number] 4mg Take 4 Univers 1 mg tablet 0-27 12-27 tablets by i ty of 00:00: 05:59 mouth in [place] 00 :00 the Medical morning Branch for 60 days. foLIC acid 2021-03- No [id number] 4mg Take 4 Univers 1 mg tablet 0-27 12-27 tablets by i ty of 00:00: 05:59 mouth in [place] 00 :00 the Medical morning Branch for 60 days. foLIC acid 2021-03- No [id number] 4mg Take 4 Univers 1 mg tablet 0-27 12-27 tablets by i ty of 00:00: 05:59 mouth in [place] 00 :00 the Medical morning Branch for 60 days. foLIC acid 2021-03- No [id number] 4mg Take 4 Univers 1 mg tablet 0-27 12-27 tablets by i ty of 00:00: 05:59 mouth in [place] 00 :00 the Medical morning Branch for 60 days. foLIC acid 2021-03- No [id number] 4mg Take 4 Univers 1 mg tablet 0-27 12-27 tablets by i ty of 00:00: 05:59 mouth in [place] 00 :00 the Medical morning Branch for 60 days. foLIC acid 2021-03- No [id number] 4mg Take 4 Univers 1 mg tablet 0-27 12-27 tablets by i ty of 00:00: 05:59 mouth in [place] 00 :00 the Medical morning Branch for 60 days. foLIC acid 2021-03- No [id number] 4mg Take 4 Univers 1 mg tablet 0-27 12-27 tablets by i ty of 00:00: 05:59 mouth in [place] 00 :00 the Medical morning Branch for 60 days. foLIC acid 2021-03- No [id number] 4mg Take 4 Univers 1 mg tablet 0-27 12-27 tablets by i ty of 00:00: 05:59 mouth in [place] 00 :00 the Medical morning Branch for 60 days. foLIC acid 2021-03- No [id number] 4mg Take 4 Univers 1 mg tablet 0-27 12-27 tablets by i ty of 00:00: 05:59 mouth in [place] 00 :00 the Medical morning Branch for 60 days. foLIC acid 2021-03- No [id number] 4mg Take 4 Univers 1 mg tablet 0-27 12-27 tablets by i ty of 00:00: 05:59 mouth in [place] 00 :00 the Medical morning Branch for 60 days. foLIC acid 2021-03- No [id number] 4mg Take 4 Univers 1 mg tablet 0-27 12-27 tablets by i ty of 00:00: 05:59 mouth in [place] 00 :00 the Medical morning Branch for 60 days. foLIC acid 2021-03- No [id number] 4mg Take 4 [facility] 1 mg tablet 0-27 12-27 tablets by i ty of 00:00: 05:59 mouth in [place] 00 :00 the Medical morning Branch for 60 days. foLIC acid 2021-03- No [id number] 4mg Take 4 [facility] 1 mg tablet 0-27 12-27 tablets by i ty of 00:00: 05:59 mouth in [place] 00 :00 the Medical morning Branch for 60 days. foLIC acid 2021-03- No [id number] 4mg Take 4 Univers 1 mg tablet 0-27 12-27 tablets by i ty of 00:00: 05:59 mouth in [place] 00 :00 the Medical morning Branch for 60 days. foLIC acid 2021-03- No [id number] 4mg Take 4 Univers 1 mg tablet 0-27 12-27 tablets by i ty of 00:00: 05:59 mouth in [place] 00 :00 the Medical morning Branch for 60 days. foLIC acid 2021-03- No [id number] 4mg Take 4 [facility] 1 mg tablet 0-27 12-27 tablets by i ty of 00:00: 05:59 mouth in [place] 00 :00 the Medical morning Branch for 60 days. foLIC acid 2021-03- No [id number] 4mg Take 4 [facility] 1 mg tablet 0-27 12-27 tablets by i ty of 00:00: 05:59 mouth in [place] 00 :00 the Medical morning Branch for 60 days. foLIC acid 2021-03- No [id number] 4mg Take 4 [facility] 1 mg tablet 0-27 12-27 tablets by i ty of 00:00: 05:59 mouth in [place] 00 :00 the Medical morning Branch for 60 days. foLIC acid 2021-03- No [id number] 4mg Take 4 [facility] 1 mg tablet 0-27 12-27 tablets by i ty of 00:00: 05:59 mouth in [place] 00 :00 the Medical morning Branch for 60 days. foLIC acid 2021-03- No [id number] 4mg Take 4 [facility] 1 mg tablet 0-27 12-27 tablets by i ty of 00:00: 05:59 mouth in [place] 00 :00 the Medical morning Branch for 60 days. foLIC acid 2021-03- No [id number] 4mg Take 4 [facility] 1 mg tablet 0-27 12-27 tablets by i ty of 00:00: 05:59 mouth in [place] 00 :00 the Medical morning Branch for 60 days. foLIC acid 2021-03- No [id number] 4mg Take 4 [facility] 1 mg tablet 0-27 12-27 tablets by i ty of 00:00: 05:59 mouth in [place] 00 :00 the Medical morning Branch for 60 days. foLIC acid 2021-03- No [id number] 4mg Take 4 [facility] 1 mg tablet 0-27 12-27 tablets by i ty of 00:00: 05:59 mouth in [place] 00 :00 the Medical morning Branch for 60 days. foLIC acid 2021-03- No [id number] 4mg Take 4 [facility] 1 mg tablet 0-27 12-27 tablets by i ty of 00:00: 05:59 mouth in [place] 00 :00 the Medical morning Branch for 60 days. foLIC acid 2021-03- No [id number] 4mg Take 4 [facility] 1 mg tablet [...] 00 MOUTH ONCE Med ical DAILY IN [place] THE MORNING lamoTRIgine 2021-03 Yes CHEW AND [facility] 25 mg 0-06 SWALLOW 2 ity of disintegrat 00:00: TABLETS BY [place] ing tablet 00 MOUTH ONCE Med ical DAILY IN [place] THE MORNING lamoTRIgine 2021-03 Yes CHEW AND [facility] [place] 25 mg 0-06 SWALLOW 2 ity of disintegrat 00:00: TABLETS BY [place] ing tablet 00 MOUTH ONCE Med ical DAILY IN [place] THE MORNING lamoTRIgine 2021-03 Yes CHEW AND [facility] [place] 25 mg 0-06 SWALLOW 2 ity of disintegrat 00:00: TABLETS BY [place] ing tablet 00 MOUTH ONCE Med ical DAILY IN [place] THE MORNING lamoTRIgine 2021-03 Yes CHEW AND [facility] [place] 25 mg 0-06 SWALLOW 2 ity of disintegrat 00:00: TABLETS BY [place] ing tablet 00 MOUTH ONCE Med ical DAILY IN [place] THE MORNING lamoTRIgine 2021-03 Yes CHEW AND [facility] [place] 25 mg 0-06 SWALLOW 2 ity of disintegrat 00:00: TABLETS BY [place] ing tablet 00 MOUTH ONCE Med ical DAILY IN [place] THE MORNING lamoTRIgine 2021-03 Yes CHEW AND [facility] [place] 25 mg 0-06 SWALLOW 2 ity of disintegrat 00:00: TABLETS BY [place] ing tablet 00 MOUTH ONCE Med ical DAILY IN [place] THE MORNING lamoTRIgine 2021-03 Yes CHEW AND [facility] [place] 25 mg 0-06 SWALLOW 2 ity of disintegrat 00:00: TABLETS BY [place] ing tablet 00 MOUTH ONCE Med ical DAILY IN [place] THE MORNING lamoTRIgine 2021-03 Yes CHEW AND [facility] [place] 25 mg 0-06 SWALLOW 2 ity of disintegrat 00:00: TABLETS BY [place] ing tablet 00 MOUTH ONCE Med ical DAILY IN [place] THE MORNING lamoTRIgine 2021-03 Yes CHEW AND [facility] [place] 25 mg 0-06 SWALLOW 2 ity of disintegrat 00:00: TABLETS BY [place] ing tablet 00 MOUTH ONCE Med ical DAILY IN [place] THE MORNING lamoTRIgine 2021-03 Yes CHEW AND [...] 18:22: mouth at [place] tablet 12 bedtime. [facility] [address] [facility] lamoTRIgine Yes 100mg Take 100 U nivers (LAMICTAL) 9-25 mg by ity of 100 mg 18:22: mouth at [place] tablet 12 bedtime. [facility] [address] [facility] lamoTRIgine 0 Yes 100mg Take 100 U nivers (LAMICTAL) 9-25 mg by ity of 100 mg 18:22: mouth at [place] tablet 12 bedtime. [facility] [address] [facility] lamoTRIgine 0 Yes 100mg Take 100 U nivers (LAMICTAL) 9-25 mg by ity of 100 mg 18:22: mouth at [place] tablet 12 bedtime. [facility] [address] [facility] lamoTRIgine 0 Yes 100mg Take 100 U nivers (LAMICTAL) 9-25 mg by ity of 100 mg 18:22: mouth at [place] tablet 12 bedtime. Medical 25 qA Branch lamoTRIgine 0 Yes 100mg Take 100 U nivers (LAMICTAL) 9-25 mg by ity of 100 mg 18:22: mouth at [place] tablet 12 bedtime. Medical 25 [facility] Branch lamoTRIgine 0 Yes 100mg Take 100 U nivers (LAMICTAL) 9-25 mg by ity of 100 mg 18:22: mouth at [place] tablet 12 bedtime. Medical 25 [facility] Branch lamoTRIgine 0 Yes 100mg Take 100 U nivers (LAMICTAL) 9-25 mg by ity of 100 mg 18:22: mouth at [place] tablet 12 bedtime. Medical 25 [facility] Branch lamoTRIgine Yes 100mg Take 100 U nivers (LAMICTAL) 9-25 mg by ity of 100 mg 18:22: mouth at [place] tablet 12 bedtime. Medical 25 [facility] Branch lamoTRIgine Yes 100mg Take 100 U nivers (LAMICTAL) 9-25 mg by ity of 100 mg 18:22: mouth at [place] tablet 12 bedtime. Medical 25 [facility] Branch lamoTRIgine Yes 100mg Take 100 U nivers (LAMICTAL) 9-25 mg by ity of 100 mg 18:22: mouth at [place] tablet 12 bedtime. Medical 25 [facility] Branch lamoTRIgine Yes 100mg Take 100 U nivers (LAMICTAL) 9-25 mg by ity of 100 mg 18:22: mouth at [place] tablet 12 bedtime. Medical 25 [facility] Branch lamoTRIgine 0 Yes 100mg Take 100 U nivers (LAMICTAL) 9-25 mg by ity of 100 mg 18:22: mouth at [place] tablet 12 bedtime. Medical 25 [facility] Branch lamoTRIgine 0 Yes 100mg Take 100 U nivers (LAMICTAL) 9-25 mg by ity of 100 mg 18:22: mouth at [place] tablet 12 bedtime. Medical 25 [facility] Branch lamoTRIgine 0 Yes 100mg Take 100 U nivers (LAMICTAL) 9-25 mg by ity of 100 mg 18:22: mouth at [place] tablet 12 bedtime. Medical 25 [facility] Branch lamoTRIgine 0 Yes 100mg Take 100 U nivers (LAMICTAL) 9-25 mg by ity of 100 mg 18:22: mouth at [place] tablet 12 bedtime. Medical 25 [facility] Branch lamoTRIgine 0 Yes 100mg Take 100 U nivers (LAMICTAL) 9-25 mg by ity of 100 mg 18:22: mouth at [place] tablet 12 bedtime. Medical 25 [facility] Branch lamoTRIgine 0 Yes 100mg Take 100 U nivers (LAMICTAL) 9-25 mg by ity of 100 mg 18:22: mouth at [place] tablet 12 bedtime. Medical 25 [facility] Branch lamoTRIgine Yes 100mg Take 100 U nivers (LAMICTAL) 9-25 mg by ity of 100 mg 18:22: mouth at [place] tablet 12 bedtime. Medical 25 [facility] Branch lamoTRIgine Yes 100mg Take 100 U nivers (LAMICTAL) 9-25 mg by ity of 100 mg 18:22: mouth at [place] tablet 12 bedtime. Medical 25 [facility] Branch lamoTRIgine Yes 100mg Take 100 U nivers (LAMICTAL) 9-25 mg by ity of 100 mg 18:22: mouth at [place] tablet 12 bedtime. Medical 25 [facility] Branch lamoTRIgine Yes 100mg Take 100 U nivers (LAMICTAL) 9-25 mg by ity of 100 mg 18:22: mouth at [place] tablet 12 bedtime. Medical 25 [facility] Branch lamoTRIgine 0 Yes 100mg Take 100 U nivers (LAMICTAL) 9-25 mg by ity of 100 mg 18:22: mouth at [place] tablet 12 bedtime. Medical 25 [facility] Branch lamoTRIgine 0 Yes 100mg Take 100 U nivers (LAMICTAL) 9-25 mg by ity of 100 mg 18:22: mouth at [place] tablet 12 bedtime. Medical 25 [facility] Branch lamoTRIgine 0 Yes 100mg Take 100 U nivers (LAMICTAL) 9-25 mg by ity of 100 mg 18:22: mouth at [place] tablet 12 bedtime. Medical 25 [facility] Branch lamoTRIgine 2022-0 Yes 100mg Take 100 U nivers (LAMICTAL) 9-25 mg by ity of 100 mg 18:22: mouth at [place] tablet 12 bedtime. Medical 25 qA Branch cyclobenzap 2021- No [id number] 10mg Take 1 [facility] rine 10 mg 9-25 10-01 tablet by ity of tablet 00:00: 04:59 mouth in [place] 00 :00 the Medical morning Branch and 1 tablet at noon and 1 tablet in the evening. Do all this for 15 doses. cyclobenzap 2021- No [id number] 10mg Take 1 [facility] rine 10 mg 9-25 10-01 tablet by ity of tablet 00:00: 04:59 mouth in [place] 00 :00 the Medical morning Branch and 1 tablet at noon and 1 tablet in the evening. Do all this for 15 doses. hydrOXYzine 0 Yes Univer s 25 mg/mL 9-16 ity of injection 00:00: [place] Medical Branch hydrOXYzine 2021-0 Yes Univer s 25 mg/mL 9-16 ity of injection 00:00: [place] [address] Medical Branch hydrOXYzine 2021-0 Yes Univer s 25 mg/mL 9-16 ity of injection 00:00: [place] [address] Medical Branch hydrOXYzine 2021-0 Yes Univer s 25 mg/mL 9-16 ity of injection 00:00: [place] [address] Medical Branch hydrOXYzine 2021-0 Yes Univer s 25 mg/mL 9-16 ity of injection 00:00: [place] Medical Branch hydrOXYzine 2-0 Yes Univer s 25 mg/mL 9-16 ity of injection 00:00: [place] Medical Branch hydrOXYzine 2-0 Yes Univer s 25 mg/mL 9-16 ity of injection 00:00: [place] [address] Medical Branch hydrOXYzine 2-0 Yes Univer s 25 mg/mL 9-16 ity of injection 00:00: [place] [address] Medical Branch hydrOXYzine 2021-0 Yes Univer s 25 mg/mL 9-16 ity of injection 00:00: [place] [address] Medical Branch hydrOXYzine 2-0 Yes Univer s 25 mg/mL 9-16 ity of injection 00:00: [place] [address] Medical Branch hydrOXYzine 2021-0 Yes Univer s 25 mg/mL 9-16 ity of injection 00:00: [place] 00 Medical Branch hydrOXYzine 2-0 Yes Univer s 25 mg/mL 9-16 ity of injection 00:00: [place] 00 Medical Branch hydrOXYzine 2-0 Yes Univer s 25 mg/mL 9-16 ity of injection 00:00: [place] [address] Medical Branch hydrOXYzine 2-0 Yes Univer s 25 mg/mL 9-16 ity of injection 00:00: [place] 00 Medical Branch hydrOXYzine 2-0 Yes Univer s 25 mg/mL 9-16 ity of injection 00:00: [place] [address] Medical Branch hydrOXYzine 2-0 Yes Univer s 25 mg/mL 9-16 ity of injection 00:00: [place] [address] Medical Branch hydrOXYzine 2-0 Yes Univer s 25 mg/mL 9-16 ity of injection 00:00: [place] [address] Medical Branch hydrOXYzine 2-0 Yes Univer s 25 mg/mL 9-16 ity of injection 00:00: [place] [address] Medical Branch hydrOXYzine 2-0 Yes Univer s 25 mg/mL 9-16 ity of injection 00:00: [place] [address] Medical Branch hydrOXYzine 2-0 Yes Univer s 25 mg/mL 9-16 ity of injection 00:00: [place] [address] Medical Branch hydrOXYzine 2-0 Yes Univer s 25 mg/mL 9-16 ity of injection 00:00: [place] [address] Medical Branch hydrOXYzine 2-0 Yes Univer s 25 mg/mL 9-16 ity of injection 00:00: [place] [address] Medical Branch hydrOXYzine 2-0 Yes Univer s 25 mg/mL 9-16 ity of injection 00:00: [place] [address] Medical Branch hydrOXYzine 2-0 Yes Univer s 25 mg/mL 9-16 ity of injection 00:00: [place] [address] Medical Branch hydrOXYzine 2-0 Yes Univer s 25 mg/mL 9-16 ity of injection 00:00: [place] 00 Medical Branch hydrOXYzine 2022-0 2- No Unive rs 25 mg/mL 9-16 12-05 ity of injection 00:00: 00:00 [place] 00 :00 Medical Branch hydrOXYzine 2-0 2- No Unive rs 25 mg/mL 9-16 12-05 ity of injection 00:00: 00:00 [place] 00 :00 Medical Branch hydrOXYzine 2022-0 Yes Univer s 25 mg 9-13 ity of capsule 00:00: [place] 00 Medical Branch hydrOXYzine 2022-0 Yes Univer s 25 mg 9-13 ity of capsule 00:00: [place] 00 Medical Branch hydrOXYzine 2022-0 Yes Univer s 25 mg 9-13 ity of capsule 00:00: [place] 00 Medical Branch hydrOXYzine 2022-0 Yes Univer s 25 mg 9-13 ity of capsule 00:00: [place] 00 Medical Branch hydrOXYzine 2022-0 2022- No Unive rs 25 mg 9-13 11-10 ity of capsule 00:00: 00:00 [place] 00 :00 Medical Branch hydrOXYzine 2022-0 2022- No Unive rs 25 mg 9-13 11-10 ity of capsule 00:00: 00:00 [place] 00 :00 Medical Branch hydrOXYzine 2022-0 2022- No Unive rs 25 mg 9-13 11-10 ity of capsule 00:00: 00:00 [place] 00 :00 Medical Branch hydrOXYzine 2-0 2022- No Unive rs 25 mg 9-13 11-10 ity of capsule 00:00: 00:00 [place] 00 :00 Medical Branch hydrOXYzine 2-0 2022- No Unive rs 25 mg 9-13 11-10 ity of capsule 00:00: 00:00 [place] 00 :00 Medical Branch lamoTRIgine 2022-0 Yes 25mg Take 25 mg [facility] 25 mg 9-12 by mouth ity of tablet 00:00: every [place] 00 morning. Medical Branch lamoTRIgine 2-0 Yes 25mg Take 25 mg [facility] 25 mg 9-12 by mouth ity of tablet 00:00: every [place] 00 morning. Medical Branch lamoTRIgine 2-0 Yes 25mg Take 25 mg [facility] 25 mg 9-12 by mouth ity of tablet 00:00: every [place] 00 morning. Medical Branch lamoTRIgine 2022-0 Yes 25mg Take 25 mg [facility] 25 mg 9-12 by mouth ity of tablet 00:00: every [place] 00 morning. Medical Branch lamoTRIgine 2022-0 2022- No 25mg Take 25 mg [facility] 25 mg 9-12 11-10 by mouth ity of tablet 00:00: 00:00 every [place] 00 :00 morning. Medical Branch lamoTRIgine 2021-0 2- No 25mg Take 25 mg [facility] 25 mg 9-12 11-10 by mouth ity of tablet 00:00: 00:00 every [place] 00 :00 morning. Medical Branch lamoTRIgine 2021-0 2021- No 25mg Take 25 mg [facility] 25 mg 9-12 11-10 by mouth ity of tablet 00:00: 00:00 every [place] 00 :00 morning. Medical Branch lamoTRIgine 2021-0 2021- No 25mg Take 25 mg [facility] 25 mg 9-12 11-10 by mouth ity of tablet 00:00: 00:00 every [place] 00 :00 morning. [facility] Branch lamoTRIgine 2021-0 2021- No 25mg Take 25 mg Univers 25 mg 9-12 11-10 by mouth ity of tablet 00:00: 00:00 every [place] 00 :00 morning. [facility] Branch lamoTRIgine 2021-0 Yes 100mg Take 100 U nivers (LAMICTAL) 8-29 mg by ity of 100 mg 15:28: mouth at [place] tablet [address] Branch lamoTRIgine 0 Yes 100mg Take 100 U nivers (LAMICTAL) 8-29 mg by ity of 100 mg 15:28: mouth at [place] tablet [address] Branch lamoTRIgine 0 Yes 100mg Take 100 U nivers (LAMICTAL) 8-29 mg by ity of 100 mg 15:28: mouth at [place] tablet [address] Branch lamoTRIgine 2021-0 Yes 100mg Take 100 U nivers (LAMICTAL) 8-29 mg by ity of 100 mg 15:28: mouth at [place] tablet [address] Branch lamoTRIgine 2021-0 Yes 100mg Take 100 U nivers (LAMICTAL) 8-29 mg by ity of 100 mg 15:28: mouth at [place] tablet [address] Branch lamoTRIgine 2021-0 Yes 100mg Take 100 U nivers (LAMICTAL) 8-29 mg by ity of 100 mg 15:28: mouth at [place] tablet [address] Branch lamoTRIgine Yes 100mg Take 100 U nivers (LAMICTAL) 8-29 mg by ity of 100 mg 15:28: mouth at [place] tablet [address] lamoTRIgine Yes 100mg Take 100 U nivers (LAMICTAL) 8-29 mg by ity of 100 mg 15:28: mouth at [place] tablet [address] lamoTRIgine Yes 100mg Take 100 U nivers (LAMICTAL) 8-29 mg by ity of 100 mg 15:28: mouth at [place] tablet [address] lamoTRIgine Yes 100mg Take 100 U nivers (LAMICTAL) 8-29 mg by ity of 100 mg 15:28: mouth at [place] tablet [address] lamoTRIgine Yes 100mg Take 100 U nivers (LAMICTAL) 8-29 mg by ity of 100 mg 15:28: mouth at [place] tablet [address] lamoTRIgine Yes 100mg Take 100 U nivers (LAMICTAL) 8-29 mg by ity of 100 mg 15:28: mouth at [place] tablet [address] lamoTRIgine Yes 100mg Take 100 U nivers (LAMICTAL) 8-29 mg by ity of 100 mg 15:28: mouth at [place] tablet [address] lamoTRIgine Yes Univer s (LAMICTAL) 6-15 ity of 100 mg 00:00: [place] tablet 00 [facility] lamoTRIgine Yes Univer s (LAMICTAL) 6-15 ity of 100 mg 00:00: [place] tablet 00 [facility] lamoTRIgine Yes Univer s (LAMICTAL) 6-15 ity of 100 mg 00:00: [place] tablet 00 [facility] lamoTRIgine Yes Univer s (LAMICTAL) 6-15 ity of 100 mg 00:00: [place] tablet 00 [facility] lamoTRIgine 2021- No Unive rs (LAMICTAL) 6-15 [...] 00 :00 Medical Branch busPIRone 2-0 Yes [id number] 18.75mg Take 2.5 Univers 7.5 mg 5-12 tablets by ity of tablet 00:00: mouth 3 [place] ([facility]) Medical times Branch daily. busPIRone 2021-0 Yes [id number] 18.75mg Take 2.5 [facility] 7.5 mg 5-12 tablets by ity of tablet 00:00: mouth 3 [place] ([facility]) Medical times Branch daily. busPIRone 2-0 Yes [id number] 18.75mg Take 2.5 Univers 7.5 mg 5-12 tablets by ity of tablet 00:00: mouth 3 [place] ([facility]) Medical times Branch daily. busPIRone 2-0 Yes [id number] 18.75mg Take 2.5 [facility] 7.5 mg 5-12 tablets by ity of tablet 00:00: mouth 3 [place] ([facility]) Medical times Branch daily. busPIRone 2-0 Yes [id number] 18.75mg Take 2.5 Univers 7.5 mg 5-12 tablets by ity of tablet 00:00: mouth 3 [place] ([facility]) Medical times Branch daily. busPIRone 2-0 Yes [id number] 18.75mg Take 2.5 [facility] 7.5 mg 5-12 tablets by ity of tablet 00:00: mouth 3 [place] ([facility]) Medical times Branch daily. busPIRone 2022-0 Yes [id number] 18.75mg Take 2.5 Univers 7.5 mg 5-12 tablets by ity of tablet 00:00: mouth (three) Medical times Branch daily. busPIRone 2022-0 Yes [id number] 18.75mg Take 2.5 [facility] 7.5 mg 5-12 tablets by ity of tablet 00:00: mouth (three) Medical times Branch daily. busPIRone 2022-0 Yes [id number] 18.75mg Take 2.5 [facility] 7.5 mg 5-12 tablets by ity of tablet 00:00: mouth (three) Medical times Branch daily. busPIRone 2022-0 Yes [id number] 18.75mg Take 2.5 [facility] 7.5 mg 5-12 tablets by ity of tablet 00:00: mouth (three) Medical times Branch daily. busPIRone 2022-0 Yes [id number] 18.75mg Take 2.5 [facility] 7.5 mg 5-12 tablets by ity of tablet 00:00: mouth (three) Medical times Branch daily. busPIRone 2022-0 Yes [id number] 18.75mg Take 2.5 Univers 7.5 mg 5-12 tablets by ity of tablet 00:00: mouth (three) Medical times Branch daily. busPIRone 2022-0 Yes [id number] 18.75mg Take 2.5 [facility] 7.5 mg 5-12 tablets by ity of tablet 00:00: mouth (three) Medical times Branch daily. busPIRone 2022-0 Yes [id number] 18.75mg Take 2.5 [facility] 7.5 mg 5-12 tablets by ity of tablet 00:00: mouth (three) Medical times Branch daily. busPIRone 2022-0 Yes [id number] 18.75mg Take 2.5 [facility] 7.5 mg 5-12 tablets by ity of tablet 00:00: mouth (three) Medical times Branch daily. busPIRone 2022-0 Yes [id number] 18.75mg Take 2.5 [facility] 7.5 mg 5-12 tablets by ity of tablet 00:00: mouth (three) Medical times Branch daily. busPIRone 2022-0 Yes [id number] 18.75mg Take 2.5 [facility] 7.5 mg 5-12 tablets by ity of tablet 00:00: mouth (three) Medical times Branch daily. busPIRone 2022-0 Yes [id number] 18.75mg Take 2.5 [facility] 7.5 mg 5-12 tablets by ity of tablet 00:00: mouth (three) Medical times Branch daily. busPIRone 2022-0 Yes [id number] 18.75mg Take 2.5 [facility] 7.5 mg 5-12 tablets by ity of tablet 00:00: mouth (three) Medical times Branch daily. busPIRone 2022-0 Yes [id number] 18.75mg Take 2.5 [facility] 7.5 mg 5-12 tablets by ity of tablet 00:00: mouth (three) Medical times Branch daily. busPIRone 2022-0 Yes [id number] 18.75mg Take 2.5 [facility] 7.5 mg 5-12 tablets by ity of tablet 00:00: mouth (three) Medical times Branch daily. busPIRone 2022-0 Yes [id number] 18.75mg Take 2.5 [facility] 7.5 mg 5-12 tablets by ity of tablet 00:00: mouth (three) Medical times Branch daily. busPIRone 2022-0 Yes [id number] 18.75mg Take 2.5 [facility] 7.5 mg 5-12 tablets by ity of tablet 00:00: [facility] (three) Medical times Branch daily. busPIRone 2022-0 Yes [id number] 18.75mg Take 2.5 [facility] 7.5 mg 5-12 tablets by ity of tablet 00:00: mouth (three) Medical times Branch daily. busPIRone 2022-0 Yes [id number] 18.75mg Take 2.5 Univers 7.5 mg 5-12 tablets by ity of tablet 00:00: mouth 3 (three) Medical times Branch daily. busPIRone 2022-0 Yes [id number] 18.75mg Take 2.5 [facility] 7.5 mg 5-12 tablets by ity of tablet 00:00: mouth (three) Medical times Branch daily. busPIRone 2022-0 Yes [id number] 18.75mg Take 2.5 [facility] 7.5 mg 5-12 tablets by ity of tablet 00:00: mouth (three) Medical times Branch daily. busPIRone 2022-0 Yes [id number] 18.75mg Take 2.5 [facility] 7.5 mg 5-12 tablets by ity of tablet 00:00: mouth (three) Medical times Branch daily. busPIRone 2022-0 Yes [id number] 18.75mg Take 2.5 [facility] 7.5 mg 5-12 tablets by ity of tablet 00:00: mouth (three) Medical times Branch daily. busPIRone 2022-0 Yes [id number] 18.75mg Take 2.5 [facility] 7.5 mg 5-12 tablets by ity of tablet 00:00: mouth (three) Medical times Branch daily. busPIRone 2022-0 Yes [id number] 18.75mg Take 2.5 [facility] 7.5 mg 5-12 tablets by ity of tablet 00:00: mouth (three) Medical times Branch daily. busPIRone 2022-0 Yes [id number] 18.75mg Take 2.5 [facility] 7.5 mg 5-12 tablets by ity of tablet 00:00: mouth (three) Medical times Branch daily. busPIRone 2022-0 Yes [id number] 18.75mg Take 2.5 [facility] 7.5 mg 5-12 tablets by ity of tablet 00:00: mouth (three) Medical times Branch daily. busPIRone 2022-0 Yes [id number] 18.75mg Take 2.5 [facility] 7.5 mg 5-12 tablets by ity of tablet 00:00: mouth (three) Medical times Branch daily. busPIRone 2022-0 Yes [id number] 18.75mg Take 2.5 [facility] 7.5 mg 5-12 tablets by ity of tablet 00:00: mouth (three) Medical times Branch daily. busPIRone 2022-0 Yes [id number] 18.75mg Take 2.5 [facility] 7.5 mg 5-12 tablets by ity of tablet 00:00: mouth (three) Medical times Branch daily. busPIRone 2-0 Yes [id number] 18.75mg Take 2.5 [facility] 7.5 mg 5-12 tablets by ity of tablet 00:00: mouth (three) Medical times Branch daily. busPIRone 2-0 Yes [id number] 18.75mg Take 2.5 [facility] 7.5 mg 5-12 tablets by ity of tablet 00:00: mouth (three) Medical times Branch daily. busPIRone 2-0 Yes [id number] 18.75mg Take 2.5 [facility] 7.5 mg 5-12 tablets by ity of tablet 00:00: mouth (three) Medical times Branch daily. busPIRone 2-0 Yes [id number] 18.75mg Take 2.5 [facility] 7.5 mg 5-12 tablets by ity of tablet 00:00: mouth (three) Medical times Branch daily. busPIRone 2-0 Yes [id number] 18.75mg Take 2.5 [facility] 7.5 mg 5-12 tablets by ity of tablet 00:00: mouth (three) Medical times Branch daily. busPIRone 2-0 Yes [id number] 18.75mg Take 2.5 [facility] 7.5 mg 5-12 tablets by ity of tablet 00:00: mouth (three) Medical times Branch daily. busPIRone 2-0 Yes [id number] 18.75mg Take 2.5 [facility] 7.5 mg 5-12 tablets by ity of tablet 00:00: mouth (three) Medical times Branch daily. busPIRone 2-0 Yes [id number] 18.75mg Take 2.5 [facility] 7.5 mg 5-12 tablets by ity of tablet 00:00: mouth (three) Medical times Branch daily. busPIRone 2-0 Yes [id number] 18.75mg Take 2.5 [facility] 7.5 mg 5-12 tablets by ity of tablet 00:00: mouth (three) Medical times Branch daily. busPIRone 2022-0 2022- No [id number] 18.75mg Take 2.5 [facility] 7.5 mg 5-12 12-05 tablets by ity of tablet 00:00: 00:00 mouth 3 [place] 00 :00 (three) Medical times Branch daily. busPIRone 2021- No [id number] 18.75mg Take 2.5 Univers 7.5 mg 5-12 12-05 tablets by ity of tablet 00:00: 00:00 mouth 3 [place] 00 :00 (three) Medical times Branch daily. Yes [id number] 1{tbl} Take 1 U nivers multivitami 5-05 tablet by ity of n ( 00:00: mouth [place] VITAMIN) 00 daily. Medical tablet Branch Yes [id number] 1{tbl} Take 1 U nivers multivitami 5-05 tablet by ity of n ( 00:00: mouth [place] VITAMIN) 00 daily. Medical tablet Branch Yes [id number] 1{tbl} Take 1 U nivers multivitami 5-05 tablet by ity of n ( 00:00: mouth [place] VITAMIN) 00 daily. Medical tablet Branch Yes [id number] 1{tbl} Take 1 U nivers multivitami 5-05 tablet by ity of n ( 00:00: mouth [place] VITAMIN) 00 daily. Medical tablet Branch Yes [id number] 1{tbl} Take 1 U nivers multivitami 5-05 tablet by ity of n ( 00:00: mouth [place] VITAMIN) 00 daily. Medical tablet Branch Yes [id number] 1{tbl} Take 1 U nivers multivitami 5-05 tablet by ity of n ( 00:00: mouth [place] VITAMIN) 00 daily. Medical tablet Branch Yes [id number] 1{tbl} Take 1 U nivers multivitami 5-05 tablet by ity of n ( 00:00: mouth [place] VITAMIN) 00 daily. Medical tablet Branch Yes [id number] 1{tbl} Take 1 U nivers multivitami 5-05 tablet by ity of n ( 00:00: mouth [place] VITAMIN) 00 daily. Medical tablet Branch Yes [id number] 1{tbl} Take 1 U nivers multivitami 5-05 tablet by ity of n ( 00:00: mouth [place] VITAMIN) 00 daily. Medical tablet Branch Yes [id number] 1{tbl} Take 1 U nivers multivitami 5-05 tablet by ity of n ( 00:00: mouth [place] VITAMIN) 00 daily. Medical tablet Branch Yes [id number] 1{tbl} Take 1 U nivers multivitami 5-05 tablet by ity of n ( 00:00: mouth [place] VITAMIN) 00 daily. Medical tablet Branch Yes [id number] 1{tbl} Take 1 U nivers multivitami 5-05 tablet by ity of n ( 00:00: mouth [place] VITAMIN) 00 daily. Medical tablet Branch Yes [id number] 1{tbl} Take 1 U nivers multivitami 5-05 tablet by ity of n ( 00:00: mouth [place] [facility]) 00 daily. [facility] tablet [facility] Yes [id number] 1{tbl} Take 1 [facility]05 tablet by [facility] n ( 00:00: [facility] [place] [facility]) 00 daily. [facility] tablet [facility] Yes [id number] 1{tbl} Take 1 [facility] tablet by [facility] ( 00:00: [facility] [place] [facility]) 00 daily. [facility] tablet [facility] Yes [id number] 1{tbl} Take 1 [facility]05 tablet by [facility] ( 00:00: [facility] [place] [facility]) 00 daily. [facility] tablet [facility] Yes [id number] 1{tbl} Take 1 [facility]05 tablet by [facility] ( 00:00: [facility] [place] [facility]) 00 daily. [facility] tablet [facility] Yes [id number] 1{tbl} Take 1 [facility]05 tablet by [facility] ( 00:00: [facility] [place] [facility]) 00 daily. [facility] tablet [facility] Yes [id number] 1{tbl} Take 1 [facility] tablet by [facility] ( 00:00: [facility] [place] [facility]) 00 daily. [facility] tablet [facility] Yes [id number] 1{tbl} Take 1 [facility]05 tablet by [facility] ( 00:00: [facility] [place] [facility]) 00 daily. [facility] tablet [facility] Yes [id number] 1{tbl} Take 1 [facility] tablet by [facility] ( 00:00: [facility] [place] [facility]) 00 daily. [facility] Yes [id number] 1{tbl} Take 1 [facility]05 tablet by [facility] ( 00:00: [facility] [place] [facility]) 00 daily. [facility] Yes [id number] 1{tbl} Take 1 [facility]05 tablet by [facility] ( 00:00: [facility] [place] [facility]) 00 daily. [facility] Yes [id number] 1{tbl} Take 1 [facility] tablet by [facility] ( 00:00: [facility] [place] [facility]) 00 daily. [facility] tablet [facility] Yes [id number] 1{tbl} Take 1 [facility]05 tablet by [facility] ( 00:00: [facility] [place] [facility]) 00 daily. [facility] tablet [facility] Yes [id number] 1{tbl} Take 1 [facility]05 tablet by [facility] ( 00:00: [facility] [place] [facility]) 00 daily. [facility] Yes [id number] 1{tbl} Take 1 [facility]05 tablet by [facility] ( 00:00: [facility] [place] [facility]) 00 daily. [facility] tablet [facility] Yes [id number] 1{tbl} Take 1 [facility]05 tablet by [facility] ( 00:00: [facility] [place] [facility]) 00 daily. [facility] Yes [id number] 1{tbl} Take 1 [facility]05 tablet by [facility] ( 00:00: [facility] [place] [facility]) 00 daily. [facility] Yes [id number] 1{tbl} Take 1 [facility]05 tablet by [facility] ( 00:00: [facility] [place] [facility]) 00 daily. [facility] tablet [facility] Yes [id number] 1{tbl} Take 1 [facility]05 tablet by [facility] ( 00:00: mouth [place] [facility]IT[facility]) 00 daily. [facility] tablet [facility] Yes [id number] 1{tbl} Take 1 [facility]05 tablet by [facility] ( 00:00: [facility] [place] [facility]) 00 daily. [facility] tablet [facility] Yes [id number] 1{tbl} Take 1 [facility]05 tablet by [facility] ( 00:00: [facility] [place] [facility]) 00 daily. [facility] tablet [facility] Yes [id number] 1{tbl} Take 1 [facility]05 tablet by [facility] ( 00:00: mouth [place] [facility]IN) 00 daily. [facility] tablet [facility] Yes [id number] 1{tbl} Take 1 [facility]05 tablet by [facility] ( 00:00: [facility] [place] [facility]) 00 daily. [facility] tablet [facility] Yes [id number] 1{tbl} Take 1 [facility]05 tablet by [facility] ( 00:00: [facility] [place] [facility]) 00 daily. [facility] tablet [facility] Yes [id number] 1{tbl} Take 1 [facility]05 tablet by [facility] ( 00:00: [facility] [place] [facility]) 00 daily. [facility] tablet [facility] Yes [id number] 1{tbl} Take 1 [facility]05 tablet by [facility] ( 00:00: mouth [place] [facility]IT[facility]) 00 daily. [facility] tablet [facility] Yes [id number] 1{tbl} Take 1 [facility]05 tablet by [facility] ( 00:00: mouth [place] [facility]IT[facility]IN) 00 daily. [facility] tablet [facility] Yes [id number] 1{tbl} Take 1 [facility]05 tablet by [facility] ( 00:00: mouth [place] [facility]IT[facility]IN) 00 daily. [facility] tablet [facility] Yes [id number] 1{tbl} Take 1 [facility] 5[facility]05 tablet by [facility] ( 00:00: mouth [place] [facility]IT[facility]IN) 00 daily. [facility] tablet [facility] Yes [id number] 1{tbl} Take 1 [facility]05 tablet by [facility] ( 00:00: mouth [place] [facility]ITAMIN) 00 daily. [facility] tablet [facility] Yes [id number] 1{tbl} Take 1 [facility] 5[facility]05 tablet by [facility] n ( 00:00: mouth [place] [facility]ITAMIN) 00 daily. Medical tablet [facility] Yes [id number] 1{tbl} Take 1 [facility]05 tablet by [facility] n ( 00:00: mouth [place] [facility]IT[facility]IN) 00 daily. Medical tablet [facility] Yes [id number] 1{tbl} Take 1 [facility] 5[facility]05 tablet by [facility] n ( 00:00: mouth [place] [facility]ITAMIN) 00 daily. [facility] tablet [facility] Yes [id number] 1{tbl} Take 1 [facility] 5[facility]05 tablet by [facility] n ( 00:00: mouth [place] [facility]ITAMIN) 00 daily. [facility] tablet [facility] Yes [id number] 1{tbl} Take 1 [facility] 5[facility]05 tablet by [facility] n ( 00:00: mouth [place] [facility]ITAMIN) 00 daily. [facility] tablet Branch 2021- No [id number] 1{tbl} Take 1 [facility]07 [...] Medical 35 times Center daily. lithium 600 Yes bipolar 600mg QD Take [address] [facility] MG capsule 7-19 disorder in mg by L ukes 17:56: remission [facility] 35 every Center morning . busPIRone 2021-0 Yes 10mg Q.5D Take [address] [facility] (BUSPAR) 10 7-19 by mouth 2 Pian kes MG tablet 17:56: (two) Medical 35 [...] ukes 00:00: remission [facility] Medical 00 nightly. [place] lithium 300 2020-0 Yes bipolar 900mg QD Take [address] [facility] MG capsule 7-15 disorder in mg by L ukes 00:00: remission [facility] Medical 00 nightly. [place] lithium 300 2020-0 Yes bipolar 900mg QD Take [address] [facility] MG capsule 7-15 disorder in mg by L ukes 00:00: remission [facility] Medical 00 nightly. [place] lithium 300 2020-0 Yes bipolar 900mg QD Take [address] [facility] MG capsule 7-15 disorder in mg by L ukes 00:00: remission mouth Medical 00 nightly. [place] lithium 300 2020-0 Yes bipolar 900mg QD Take [address] [facility] MG capsule 7-15 disorder in mg by L ukes 00:00: remission mouth Medical 00 nightly. [place] lithium 300 2020-0 Yes bipolar 900mg QD Take [address] [facility] [address] MG capsule 7-15 disorder in mg by L ukes 00:00: remission mouth Medical 00 nightly. [place] lithium 300 2020-0 Yes bipolar 900mg QD Take [address] [facility] [address] MG capsule 7-15 disorder in mg by L ukes 00:00: remission mouth Medical 00 nightly. [place] lithium 300 2020-0 Yes bipolar 900mg QD Take [address] [facility] [address] MG capsule 7-15 disorder in mg by L ukes 00:00: remission mouth Medical 00 nightly. [place] Immunizations Ordered Filled Immunization Date Status Comments [facility] e Immunization Name Name Rho (d) Immune 2022-02-12 Completed [facility] Gl[facility] 00:00:00 [facility] Rho (d) Immune 2022-02-12 Completed [facility] Gl[facility] 00:00:00 [facility] Rho (d) Immune 2022-02-12 Completed [facility] Globulin 00:00:00 [facility] Rho (d) Immune 2022-02-12 Completed [facility] Globulin 00:00:00 [place] [facility] Rho (d) Immune 2022-02-12 Completed [facility] Globulin 00:00:00 [facility] [place] [facility] Rho (d) Immune 2022-02-12 Completed [facility] Globulin 00:00:00 [facility] [place] [facility] Rho (d) Immune 2022-02-12 Completed [facility] Globulin 00:00:00 [facility] [place] [facility] Rho (d) Immune 2022-02-12 Completed [facility] Globulin 00:00:00 [facility] [place] [facility] Rho (d) Immune 2022-02-12 Completed [facility] Globulin 00:00:00 [facility] [place] [facility] Rho (d) Immune 2022-02-12 Completed [facility] Globulin 00:00:00 [facility] [place] [facility] Rho (d) Immune 2022-02-12 Completed [facility] Globulin 00:00:00 [facility] [place] [facility] Rho (d) Immune 2022-02-12 Completed [facility] Globulin 00:00:00 [facility] [place] [facility] Rho (d) Immune 2022-02-12 Completed [facility] Globulin 00:00:00 [facility] [place] [facility] Rho (d) Immune 2022-02-12 Completed [facility] Globulin 00:00:00 [facility] [place] [facility] Rho (d) Immune 2022-02-12 Completed [facility] Globulin 00:00:00 [facility] [place] [facility] Rho (d) Immune 2022-02-12 Completed [facility] Globulin 00:00:00 [facility] [place] [facility] Rho (d) Immune 2022-02-12 Completed [facility] Globulin 00:00:00 [facility] [place] [facility] Rho (d) Immune 2022-02-12 Completed [facility] Globulin 00:00:00 [facility] [place] [facility] Rho (d) Immune 2022-02-12 Completed [facility] Globulin 00:00:00 [facility] [place] [facility] Rho (d) Immune 2022-02-12 Completed [facility] Globulin 00:00:00 [facility] [place] [facility] Rho (d) Immune 2022-02-12 Completed [facility] Globulin 00:00:00 [facility] [place] [facility] Rho (d) Immune 2022-02-12 Completed [facility] Globulin 00:00:00 [facility] [place] [facility] Rho (d) Immune 2022-02-12 Completed [facility] Globulin 00:00:00 [facility] [place] [facility] Rho (d) Immune 2022-02-12 Completed [facility] Globulin 00:00:00 [facility] [place] [facility] Rho (d) Immune 2022-02-12 Completed [facility] Globulin 00:00:00 [facility] [place] [facility] Rho (d) Immune 2022-02-12 Completed [facility] Globulin 00:00:00 [facility] [place] [facility] Rho (d) Immune 2022-02-12 Completed [facility] Globulin 00:00:00 [facility] [place] [facility] Rho (d) Immune 2022-02-12 Completed [facility] Globulin 00:00:00 [facility] [place] [facility] Rho (d) Immune 2022-02-12 Completed [facility] Globulin 00:00:00 [facility] [place] [facility] Rho (d) Immune 2022-02-12 Completed [facility] Globulin 00:00:00 [facility] [place] [facility] Rho (d) Immune 2022-02-12 Completed [facility] Globulin 00:00:00 [facility] [place] [facility] Rho (d) Immune 2022-02-12 Completed [facility] Globulin 00:00:00 [facility] [place] [facility] Rho (d) Immune 2022-02-12 Completed [facility] Globulin 00:00:00 [facility] [place] [facility] Rho (d) Immune 2022-02-12 Completed [facility] Globulin 00:00:00 [facility] [place] [facility] Rho (d) Immune 2022-02-12 Completed [facility] Globulin 00:00:00 [facility] [place] [facility] Rho (d) Immune 2022-02-12 Completed [facility] Globulin 00:00:00 [facility] [place] [facility] Rho (d) Immune 2022-02-12 Completed [facility] Globulin 00:00:00 [facility] [place] [facility] Rho (d) Immune 2022-02-12 Completed [facility] Globulin 00:00:00 [facility] [place] [facility] Rho (d) Immune 2022-02-12 Completed [facility] Globulin 00:00:00 [facility] [place] [facility] Rho (d) Immune 2022-01-02 Completed [facility] Globulin 00:00:00 [facility] [place] [facility] Rho (d) Immune 2022-01-02 Completed [facility] Globulin 00:00:00 [facility] [place] [facility] Rho (d) Immune 2022-01-02 Completed [facility] Globulin 00:00:00 [facility] [place] [facility] Rho (d) Immune 2022-01-02 Completed [facility] Globulin 00:00:00 [facility] [place] [facility] Rho (d) Immune 2022-01-02 Completed [facility] Globulin 00:00:00 [facility] [place] [facility] Rho (d) Immune 2022-01-02 Completed [facility] Globulin 00:00:00 [facility] [place] [facility] Rho (d) Immune 2022-01-02 Completed [facility] Globulin 00:00:00 [facility] [place] [facility] Rho (d) Immune 2022-01-02 Completed [facility] Globulin 00:00:00 [facility] [place] [facility] Rho (d) Immune 2022-01-02 Completed [facility] Globulin 00:00:00 [facility] [place] [facility] Rho (d) Immune 2022-01-02 Completed [facility] Globulin 00:00:00 [facility] [place] [facility] Rho (d) Immune 2022-01-02 Completed [facility] Globulin 00:00:00 [facility] [place] [facility] Rho (d) Immune 2022-01-02 Completed [facility] Globulin 00:00:00 [facility] [place] [facility] Rho (d) Immune 2022-01-02 Completed [facility] Globulin 00:00:00 [facility] [place] [facility] Rho (d) Immune 2022-01-02 Completed [facility] Globulin 00:00:00 [facility] [place] [facility] Rho (d) Immune 2022-01-02 Completed [facility] Globulin 00:00:00 [facility] [place] [facility] Rho (d) Immune 2022-01-02 Completed [facility] Globulin 00:00:00 [facility] [place] [facility] Rho (d) Immune 2022-01-02 Completed [facility] Globulin 00:00:00 [facility] [place] [facility] Rho (d) Immune 2022-01-02 Completed [facility] Globulin 00:00:00 [facility] [place] [facility] Rho (d) Immune 2022-01-02 Completed [facility] Globulin 00:00:00 [facility] [place] [facility] Rho (d) Immune 2022-01-02 Completed [facility] Globulin 00:00:00 [facility] [place] [facility] Rho (d) Immune 2022-01-02 Completed [facility] Globulin 00:00:00 [facility] [place] [facility] Rho (d) Immune 2022-01-02 Completed [facility] Globulin 00:00:00 [facility] [place] [facility] Rho (d) Immune 2022-01-02 Completed [facility] Globulin 00:00:00 [facility] [place] [facility] Rho (d) Immune 2022-01-02 Completed [facility] Globulin 00:00:00 [facility] [place] [facility] Rho (d) Immune 2022-01-02 Completed [facility] Globulin 00:00:00 [facility] [place] [facility] Rho (d) Immune 2022-01-02 Completed [facility] Globulin 00:00:00 [facility] [place] [facility] Rho (d) Immune 2022-01-02 Completed [facility] Globulin 00:00:00 [facility] [place] [facility] Rho (d) Immune 2022-01-02 Completed [facility] Globulin 00:00:00 [facility] [place] [facility] Rho (d) Immune 2022-01-02 Completed [facility] Globulin 00:00:00 [facility] [place] [facility] Rho (d) Immune 2022-01-02 Completed [facility] Globulin 00:00:00 [facility] [place] [facility] Rho (d) Immune 2022-01-02 Completed [facility] Globulin 00:00:00 [facility] [place] [facility] Rho (d) Immune 2022-01-02 Completed [facility] Globulin 00:00:00 [facility] [place] [facility] Rho (d) Immune 2022-01-02 Completed [facility] Globulin 00:00:00 [facility] [place] [facility] Rho (d) Immune 2022-01-02 Completed [facility] Globulin 00:00:00 [facility] [place] [facility] Rho (d) Immune 2022-01-02 Completed [facility] Globulin 00:00:00 [facility] [place] [facility] Rho (d) Immune 2022-01-02 Completed [facility] Globulin 00:00:00 [facility] [place] [facility] Rho (d) Immune 2022-01-02 Completed [facility] Globulin 00:00:00 [facility] [place] [facility] Rho (d) Immune 2022-01-02 Completed [facility] Globulin 00:00:00 [facility] [place] [facility] Rho (d) Immune 2022-01-02 Completed [facility] Globulin 00:00:00 [facility] [place] [facility] Rho (d) Immune 2022-01-02 Completed [facility] Globulin 00:00:00 [facility] [place] [facility] Rho (d) Immune 2022-01-02 Completed [facility] Globulin 00:00:00 [facility] [place] [facility] Rho (d) Immune 2022-01-02 Completed [facility] Globulin 00:00:00 [facility] [place] [facility] Rho (d) Immune 2022-01-02 Completed [facility] Globulin 00:00:00 [facility] [place] [facility] Rho (d) Immune 2022-01-02 Completed [facility] Globulin 00:00:00 [facility] [place] [facility] Rho (d) Immune 2022-01-02 Completed [facility] Globulin 00:00:00 [facility] [place] [facility] Rho (d) Immune 2022-01-02 Completed [facility] Globulin 00:00:00 [facility] [place] [facility] Rho (d) Immune 2022-01-02 Completed [facility] Globulin 00:00:00 [facility] [place] [facility] Rho (d) Immune 2022-01-02 Completed [facility] Globulin 00:00:00 [facility] [place] [facility] Rho (d) Immune 2022-01-02 Completed [facility] Globulin 00:00:00 [facility] [place] [facility] Rho (d) Immune 2022-01-02 Completed [facility] Globulin 00:00:00 [facility] [place] [facility] Rho (d) Immune 2022-01-02 Completed [facility] Globulin 00:00:00 [facility] [place] [facility] Rho (d) Immune 2022-01-02 Completed [facility] Globulin 00:00:00 [facility] Rho (d) Immune 2022-01-02 Completed [facility] Globulin 00:00:00 [facility] Rho (d) Immune 2022-01-02 Completed [facility] Globulin 00:00:00 [facility] [place] [facility] Rho (d) Immune 2022-01-02 Completed [facility] Globulin 00:00:00 [facility] Rho (d) Immune 2022-01-02 Completed [facility] Globulin 00:00:00 [facility] [place] [facility] Rho (d) Immune 2022-01-02 Completed [facility] Globulin 00:00:00 [facility] [place] [facility] Rho (d) Immune 2022-01-02 Completed [facility] Globulin 00:00:00 [facility] Rho (d) Immune 2022-01-02 Completed [facility] Globulin 00:00:00 [facility] [place] [facility] Rho (d) Immune 2022-01-02 Completed [facility] Globulin 00:00:00 [facility] [place] [facility] Rho (d) Immune 2022-01-02 Completed [facility] Globulin 00:00:00 [facility] Rho (d) Immune 2022-01-02 Completed [facility] Globulin 00:00:00 [facility] [place] [facility] Rho (d) Immune 2022-01-02 Completed [facility] Globulin 00:00:00 [facility] [place] [facility] Rho (d) Immune 2022-01-02 Completed [facility] Globulin 00:00:00 [facility] Rho (d) Immune 2022-01-02 Completed [facility] Globulin 00:00:00 [facility] Rho (d) Immune 2022-01-02 Completed [facility] Globulin 00:00:00 [facility] Rho (d) Immune 2022-01-02 Completed [facility] Globulin 00:00:00 [facility] TDAP 2021-12-17 Completed University of 00:00:00 [facility] [place] [facility] TDAP 2021-12-17 Completed University of 00:00:00 [facility] TDAP 2021-12-17 Completed University of 00:00:00 [facility] TDAP 2021-12-17 Completed University of 00:00:00 [facility] [place] [facility] TDAP 2021-12-17 Completed University of 00:00:00 [facility] [place] [facility] TDAP 2021-12-17 Completed University of 00:00:00 [facility] TDAP 2021-12-17 Completed University of 00:00:00 [facility] [place] [facility] TDAP 2021-12-17 Completed University of 00:00:00 [facility] TDAP 2021-12-17 Completed University of 00:00:00 [place] [facility] TDAP 2021-12-17 Completed University of 00:00:00 [place] [facility] TDAP 2021-12-17 Completed University of 00:00:00 [place] [facility] TDAP 2021-12-17 Completed University of 00:00:00 [place] [facility] TDAP 2021-12-17 Completed University of 00:00:00 [place] [facility] TDAP 2021-12-17 Completed University of 00:00:00 [place] [facility] TDAP 2021-12-17 Completed University of 00:00:00 [place] [facility] TDAP 2021-12-17 Completed University of 00:00:00 [place] [facility] TDAP 2021-12-17 Completed University of 00:00:00 [place] [facility] TDAP 2021-12-17 Completed University of 00:00:00 [place] [facility] TDAP 2021-12-17 Completed University of 00:00:00 [place] [facility] TDAP 2021-12-17 Completed University of 00:00:00 [place] [facility] TDAP 2021-12-17 Completed University of 00:00:00 [place] [facility] TDAP 2021-12-17 Completed University of 00:00:00 [place] [facility] TDAP 2021-12-17 Completed University of 00:00:00 [place] [facility] TDAP 2021-12-17 Completed University of 00:00:00 [place] [facility] TDAP 2021-12-17 Completed University of 00:00:00 [place] [facility] TDAP 2021-12-17 Completed University of 00:00:00 [place] [facility] TDAP 2021-12-17 Completed University of 00:00:00 [place] [facility] TDAP 2021-12-17 Completed University of 00:00:00 [place] [facility] TDAP 2021-12-17 Completed University of 00:00:00 [place] [facility] TDAP 2021-12-17 Completed University of 00:00:00 [place] [facility] TDAP 2021-12-17 Completed University of 00:00:00 [place] [facility] TDAP 2021-12-17 Completed University of 00:00:00 [place] [facility] TDAP 2021-12-17 Completed University of 00:00:00 [place] [facility] TDAP 2021-12-17 Completed University of 00:00:00 [place] [facility] TDAP 2021-12-17 Completed University of 00:00:00 [place] [facility] TDAP 2021-12-17 Completed University of 00:00:00 [place] [facility] TDAP 2021-12-17 Completed University of 00:00:00 [place] [facility] TDAP 2021-12-17 Completed University of 00:00:00 [place] [facility] TDAP 2021-12-17 Completed University of 00:00:00 [place] [facility] TDAP 2021-12-17 Completed University of 00:00:00 [place] [facility] TDAP 2021-12-17 Completed University of 00:00:00 [place] [facility] TDAP 2021-12-17 Completed University of 00:00:00 [place] [facility] TDAP 2021-12-17 Completed University of 00:00:00 [place] [facility] TDAP 2021-12-17 Completed University of 00:00:00 [place] [facility] TDAP 2021-12-17 Completed University of 00:00:00 [place] [facility] TDAP 2021-12-17 Completed University of 00:00:00 [place] [facility] TDAP 2021-12-17 Completed University of 00:00:00 [place] [facility] TDAP 2021-12-17 Completed University of 00:00:00 [place] [facility] TDAP 2021-12-17 Completed University of 00:00:00 [place] [facility] TDAP 2021-12-17 Completed [facility] of 00:00:00 [place] [facility] TDAP 2021-12-17 Completed [facility] of 00:00:00 [place] [facility] TDAP 2021-12-17 Completed [facility] of 00:00:00 [place] [facility] TDAP 2021-12-17 Completed University of 00:00:00 [place] [facility] TDAP 2021-12-17 Completed University of 00:00:00 [place] [facility] TDAP 2021-12-17 Completed University of 00:00:00 [place] [facility] TDAP 2021-12-17 Completed University of 00:00:00 [place] [facility] TDAP 2021-12-17 Completed University of 00:00:00 [place] [facility] TDAP 2021-12-17 Completed University of 00:00:00 [place] [facility] TDAP 2021-12-17 Completed University of 00:00:00 [place] [facility] TDAP 2021-12-17 Completed University of 00:00:00 [place] [facility] TDAP 2021-12-17 Completed University of 00:00:00 [facility] TDAP 2021-12-17 Completed University of 00:00:00 [place] [facility] TDAP 2021-12-17 Completed University of 00:00:00 [place] [facility] TDAP 2021-12-17 Completed University of 00:00:00 [place] [facility] TDAP 2021-12-17 Completed University of 00:00:00 [facility] [place] [facility] TDAP 2021-12-17 Completed University of 00:00:00 [place] [facility] TDAP 2021-12-17 Completed University of 00:00:00 [place] [facility] TDAP 2021-12-17 Completed University of 00:00:00 [facility] [place] [facility] TDAP 2021-12-17 Completed University of 00:00:00 [facility] TDAP 2021-12-17 Completed University of 00:00:00 [facility] SARS-COV-2 COVID-19 2021-02-05 Completed Unive rsity of PFIZER VACCINE 00:00:00 [facility] SARS-COV-2 COVID-19 2021-02-05 Completed Unive rsity of PFIZER VACCINE 00:00:00 [facility] SARS-COV-2 COVID-19 2021-02-05 Completed Unive rsity of PFIZER VACCINE 00:00:00 [facility] SARS-COV-2 COVID-19 2021-02-05 Completed Unive rsity of PFIZER VACCINE 00:00:00 [facility] SARS-COV-2 COVID-19 2021-02-05 Completed Unive rsity of PFIZER VACCINE 00:00:00 [facility] SARS-COV-2 COVID-19 2021-02-05 Completed Unive rsity of PFIZER VACCINE 00:00:00 [facility] SARS-COV-2 COVID-19 2021-02-05 Completed Unive rsity of PFIZER VACCINE 00:00:00 [facility] SARS-COV-2 COVID-19 2021-02-05 Completed Unive rsity of PFIZER VACCINE 00:00:00 [facility] SARS-COV-2 COVID-19 2021-02-05 Completed Unive rsity of PFIZER VACCINE 00:00:00 [facility] SARS-COV-2 COVID-19 2021-02-05 Completed Unive rs[facility] of PFIZER VACCINE 00:00:00 [place] [facility] SARS-COV-2 COVID-19 2021-02-05 Completed Unive rsity of PFIZER VACCINE 00:00:00 [facility] SARS-COV-2 COVID-19 2021-02-05 Completed Unive rsity of PFIZER VACCINE 00:00:00 [facility] SARS-COV-2 COVID-19 2021-02-05 Completed Unive rsity of PFIZER VACCINE 00:00:00 [facility] SARS-COV-2 COVID-19 2021-02-05 Completed Unive rsity of PFIZER VACCINE 00:00:00 [facility] SARS-COV-2 COVID-19 2021-02-05 Completed [facility]ive rsity of PFIZER VACCINE 00[facility]00:00 [facility] Branch SARS-COV-2 COVID-19 2021-02-05 Completed [facility] PFIZER VACCINE 00:00:00 [facility] SARS-COV-2 COVID-19 2021-02-05 Completed [facility] PFIZER VACCINE 00:00:00 [facility] SARS-COV-2 COVID-19 2021-02-05 Completed [facility] of PFIZER VACCINE 00:00:00 [facility] SARS-COV-2 COVID-19 2021-02-05 Completed [facility] of PFIZER VACCINE 00:00:00 [facility] SARS-COV-2 COVID-19 2021-01-15 Completed [facility] of PFIZER VACCINE 00:00:00 [facility] SARS-COV-2 COVID-19 2021-01-15 Completed [facility] of PFIZER VACCINE 00:00:00 [facility] SARS-COV-2 COVID-19 2021-01-15 Completed [facility] of PFIZER VACCINE 00:00:00 [facility] SARS-COV-2 COVID-19 2021-01-15 Completed [facility] of PFIZER VACCINE 00:00:00 [facility] SARS-COV-2 COVID-19 2021-01-15 Completed [facility] of PFIZER VACCINE 00:00:00 [facility] SARS-COV-2 COVID-19 2021-01-15 Completed [facility] of PFIZER VACCINE 00:00:00 [facility] SARS-COV-2 COVID-19 2021-01-15 Completed [facility] of PFIZER VACCINE 00:00:00 [facility] SARS-COV-2 COVID-19 2021-01-15 Completed [facility] of PFIZER VACCINE 00:00:00 [facility] SARS-COV-2 COVID-19 2021-01-15 Completed [facility] of PFIZER VACCINE 00:00:00 [facility] SARS-COV-2 COVID-19 2021-01-15 Completed [facility] of PFIZER VACCINE 00:00:00 [facility] SARS-COV-2 COVID-19 2021-01-15 Completed [facility] of PFIZER VACCINE 00:00:00 [facility] SARS-COV-2 COVID-19 2021-01-15 Completed [facility] of PFIZER VACCINE 00:00:00 [facility] SARS-COV-2 COVID-19 2021-01-15 Completed [facility] of PFIZER VACCINE 00:00:00 [facility] SARS-COV-2 COVID-19 2021-01-15 Completed [facility] of PFIZER VACCINE 00:00:00 [facility] SARS-COV-2 COVID-19 2021-01-15 Completed [facility] PFIZER VACCINE 00:00:00 [facility] SARS-COV-2 COVID-19 2021-01-15 Completed [facility] PFIZER VACCINE 00:00:00 [facility] SARS-COV-2 COVID-19 2021-01-15 Completed [facility] of PFIZER VACCINE 00:00:00 [facility] SARS-COV-2 COVID-19 2021-01-15 Completed [facility] of PFIZER VACCINE 00:00:00 [facility] SARS-COV-2 COVID-19 2021-01-15 Completed [facility] PFIZER VACCINE 00:00:00 [facility] HPV9 2019-12-30 Completed [facility] 00:00:00 [facility] HPV9 2019-12-30 Completed University of 00:00:00 [facility] HPV9 2019-12-30 Completed University of 00:00:00 [facility] HPV9 2019-12-30 Completed [facility] of 00:00:00 [facility] HPV9 2019-12-30 Completed [facility] of 00:00:00 [facility] HPV9 2019-12-30 Completed University of 00:00:00 [...] Branch HPV9 2019-12-30 Completed [facility] 00:00:00 [facility] HPV9 2019-12-30 Completed University of [...] Branch HPV9 2019-09-27 Completed [facility] 00:00:00 [facility] HPV9 2019-09-27 Completed [facility] 00:00:00 [facility] HPV9 2019-09-27 Completed [facility] 00:00:00 [facility] HPV9 2019-09-27 Completed [facility] 00:00:00 [facility] HPV9 2019-09-27 Completed [facility] 00:00:00 [facility] HPV9 2019-09-27 Completed [facility] 00:00:00 [facility] HPV9 2019-09-27 Completed [facility] 00:00:00 [facility] HPV9 2019-09-27 Completed [facility] 00:00:00 [facility] HPV9 2019-09-27 Completed [facility] 00:00:00 [facility] HPV9 2019-09-27 Completed [facility] 00:00:00 [facility] HPV9 2019-09-27 Completed [facility] 00:00:00 [facility] HPV9 2019-09-27 Completed [facility] 00:00:00 [facility] HPV9 2019-09-27 Completed [facility] 00:00:00 [facility] HPV9 2019-09-27 Completed [facility] 00:00:00 [facility] HPV9 2019-09-27 Completed [facility] 00:00:00 [facility] HPV9 2019-09-27 Completed [facility] 00:00:00 [facility] HPV9 2019-09-27 Completed [facility] 00:00:00 [facility] HPV9 2019-09-27 Completed [facility] 00:00:00 [facility] HPV9 2019-09-27 Completed [facility] 00:00:00 [facility] HPV9 2019-09-27 Completed [facility] 00:00:00 [facility] HPV9 2019-09-27 Completed [facility] 00:00:00 [facility] HPV9 2019-09-27 Completed [facility] 00:00:00 [facility] HPV9 2019-09-27 Completed [facility] 00:00:00 [facility] HPV9 2019-09-27 Completed [facility] 00:00:00 [facility] HPV9 2019-09-27 Completed [facility] 00:00:00 [facility] HPV9 2019-09-27 Completed [facility] 00:00:00 [facility] HPV9 2019-09-27 Completed [facility] 00:00:00 [facility] HPV9 2019-09-27 Completed [facility] 00:00:00 [facility] HPV9 2019-09-27 Completed [facility] 00:00:00 [facility] HPV9 2019-09-27 Completed [facility] 00:00:00 [facility] HPV9 2019-09-27 Completed [facility] 00:00:00 [facility] HPV9 2019-09-27 Completed [facility] 00:00:00 [facility] HPV9 2019-09-27 Completed [facility] 00:00:00 [facility] HPV9 2019-09-27 Completed [facility] 00:00:00 [facility] HPV9 2019-09-27 Completed [facility] 00:00:00 [facility] HPV9 2019-09-27 Completed [facility] 00:00:00 [facility] HPV9 2019-09-27 Completed [facility] 00:00:00 [facility] HPV9 2019-09-27 Completed [facility] 00:00:00 [facility] HPV9 2019-09-27 Completed [facility] 00:00:00 [facility] HPV9 2019-09-27 Completed [facility] 00:00:00 [facility] HPV9 2019-09-27 Completed [facility] 00:00:00 [facility] HPV9 2019-09-27 Completed [facility] 00:00:00 [facility] HPV9 2019-09-27 Completed [facility] 00:00:00 [facility] HPV9 2019-09-27 Completed [facility] 00:00:00 [facility] HPV9 2019-09-27 Completed [facility] 00:00:00 [facility] HPV9 2019-09-27 Completed [facility] 00:00:00 [facility] HPV9 2019-09-27 Completed [facility] 00:00:00 [facility] HPV9 2019-09-27 Completed [facility] 00:00:00 [facility] HPV9 2019-09-27 Completed [facility] 00:00:00 [facility] HPV9 2019-09-27 Completed [facility] 00:00:00 [facility] HPV9 2019-09-27 Completed [facility] 00:00:00 [facility] HPV9 2019-09-27 Completed [facility] 00:00:00 [facility] HPV9 2019-09-27 Completed [facility] 00:00:00 [facility] HPV9 2019-09-27 Completed [facility] 00:00:00 [facility] HPV9 2019-09-27 Completed [facility] 00:00:00 [facility] HPV9 2019-09-27 Completed [facility] 00:00:00 [facility] HPV9 2019-09-27 Completed [facility] 00:00:00 [facility] HPV9 2019-09-27 Completed [facility] 00:00:00 [facility] HPV9 2019-09-27 Completed [facility] 00:00:00 [facility] HPV9 2019-09-27 Completed [facility] 00:00:00 [facility] HPV9 2019-09-27 Completed [facility] 00:00:00 [facility] HPV9 2019-09-27 Completed [facility] 00:00:00 [facility] HPV9 2019-09-27 Completed [facility] 00:00:00 [facility] HPV9 2019-09-27 Completed [facility] 00:00:00 [facility] HPV9 2019-09-27 Completed [facility] 00:00:00 [facility] HPV9 2019-09-27 Completed [facility] 00:00:00 [facility] HPV9 2019-09-27 Completed [facility] 00:00:00 [facility] HPV9 2019-09-27 Completed [facility] 00:00:00 [facility] HPV9 2019-09-27 Completed [facility] 00:00:00 [facility] HPV9 2019-09-27 Completed [facility] 00:00:00 [facility] HPV9 2019-09-27 Completed [facility] 00:00:00 [facility] HPV9 2019-09-27 Completed [facility] 00:00:00 [facility] HPV9 2019-09-27 Completed [facility] 00:00:00 [facility] HPV9 2019-09-27 Completed [facility] 00:00:00 [facility] HPV9 2019-09-27 Completed [facility] 00:00:00 [facility] HPV9 2019-09-27 Completed [facility] 00:00:00 [facility] HPV9 2019-09-27 Completed [facility] 00:00:00 [facility] HPV9 2019-09-27 Completed [facility] 00:00:00 [facility] HPV9 2019-09-27 Completed [facility] 00:00:00 [facility] HPV9 2019-09-27 Completed [facility] 00:00:00 [facility] HPV9 2019-09-27 Completed [facility] 00:00:00 [facility] HPV9 2019-09-27 Completed [facility] 00:00:00 [facility] HPV9 2019-09-27 Completed [facility] 00:00:00 [facility] HPV9 2019-09-27 Completed [facility] 00:00:00 [facility] HPV9 2019-09-27 Completed University of [...] Branch HPV9 2019-05-17 Completed [facility] 00:00:00 [facility] HPV9 2019-05-17 Completed [facility] 00:00:00 [facility] HPV9 2019-05-17 Completed [facility] 00:00:00 [facility] HPV9 2019-05-17 Completed [facility] 00:00:00 [facility] HPV9 2019-05-17 Completed [facility] 00:00:00 [facility] TDAP (ADACEL) 2018-02-15 Completed [facility] of VACCINE 00:00:00 [facility] TDAP (ADACEL) 2018-02-15 Completed [facility] of VACCINE 00:00:00 [facility] TDAP (ADACEL) 2018-02-15 Completed [facility] of VACCINE 00:00:00 [facility] TDAP (ADACEL) 2018-02-15 Completed [facility] VACCINE 00:00:00 [facility] TDAP (ADACEL) 2018-02-15 Completed [facility] of VACCINE 00:00:00 [facility] TDAP (ADACEL) 2018-02-15 Completed [facility] VACCINE 00:00:00 [facility] TDAP (ADACEL) 2018-02-15 Completed [facility] of VACCINE 00:00:00 [facility] TDAP (ADACEL) 2018-02-15 Completed [facility] VACCINE 00:00:00 [facility] TDAP (ADACEL) 2018-02-15 Completed [facility] VACCINE 00:00:00 [facility] TDAP (ADACEL) 2018-02-15 Completed [facility] VACCINE 00:00:00 [facility] TDAP (ADACEL) 2018-02-15 Completed [facility] VACCINE 00:00:00 [facility] TDAP (ADACEL) 2018-02-15 Completed [facility] VACCINE 00:00:00 [facility] TDAP (ADACEL) 2018-02-15 Completed [facility] VACCINE 00:00:00 [facility] TDAP (ADACEL) 2018-02-15 Completed [facility] VACCINE 00:00:00 [facility] TDAP (ADACEL) 2018-02-15 Completed [facility] VACCINE 00:00:00 [facility] TDAP (ADACEL) 2018-02-15 Completed [facility] VACCINE 00:00:00 [facility] TDAP (ADACEL) 2018-02-15 Completed [facility] VACCINE 00:00:00 [facility] TDAP (ADACEL) 2018-02-15 Completed [facility] VACCINE 00:00:00 [facility] TDAP (ADACEL) 2018-02-15 Completed [facility] VACCINE 00:00:00 [facility] TDAP (ADACEL) 2018-02-15 Completed [facility] VACCINE 00:00:00 [facility] TDAP (ADACEL) 2018-02-15 Completed [facility] VACCINE 00:00:00 [facility] TDAP (ADACEL) 2018-02-15 Completed [facility] VACCINE 00:00:00 [facility] TDAP (ADACEL) 2018-02-15 Completed [facility] of VACCINE 00:00:00 [facility] TDAP (ADACEL) 2018-02-15 Completed [facility] of VACCINE 00:00:00 [facility] TDAP (ADACEL) 2018-02-15 Completed [facility] of VACCINE 00:00:00 [facility] TDAP (ADACEL) 2018-02-15 Completed [facility] of VACCINE 00:00:00 [facility] TDAP (ADACEL) 2018-02-15 Completed [facility] of VACCINE 00:00:00 [facility] TDAP (ADACEL) 2018-02-15 Completed [facility] of VACCINE 00:00:00 [facility] TDAP (ADACEL) 2018-02-15 Completed [facility] of VACCINE 00:00:00 [facility] TDAP (ADACEL) 2018-02-15 Completed [facility] of VACCINE 00:00:00 [facility] TDAP (ADACEL) 2018-02-15 Completed [facility] of VACCINE 00:00:00 [facility] TDAP (ADACEL) 2018-02-15 Completed [facility] of VACCINE 00:00:00 [facility] TDAP (ADACEL) 2018-02-15 Completed [facility] of VACCINE 00:00:00 [facility] TDAP (ADACEL) 2018-02-15 Completed [facility] VACCINE 00:00:00 [facility] TDAP (ADACEL) 2018-02-15 Completed [facility] VACCINE 00:00:00 [facility] TDAP (ADACEL) 2018-02-15 Completed [facility] of VACCINE 00:00:00 [facility] TDAP (ADACEL) 2018-02-15 Completed [facility] of VACCINE 00:00:00 [facility] TDAP (ADACEL) 2018-02-15 Completed [facility] VACCINE 00:00:00 [facility] TDAP (ADACEL) 2018-02-15 Completed [facility] VACCINE 00:00:00 [facility] TDAP (ADACEL) 2018-02-15 Completed University [...] (ADACEL) 2018-02-15 Completed [facility] VACCINE 00:00:00 [facility] TDAP (ADACEL) 2018-02-15 Completed [facility] of VACCINE 00:00:00 [facility] TDAP (ADACEL) 2018-02-15 Completed [facility] of VACCINE 00:00:00 [facility] TDAP (ADACEL) 2018-02-15 Completed [facility] of VACCINE 00:00:00 [facility] TDAP (ADACEL) 2018-02-15 Completed [facility] VACCINE 00:00:00 [facility] TDAP (ADACEL) 2018-02-15 Completed [facility] of VACCINE 00:00:00 [facility] TDAP (ADACEL) 2018-02-15 Completed [facility] of VACCINE 00:00:00 [facility] TDAP (ADACEL) 2018-02-15 Completed University [...] (ADACEL) 2018-02-15 Completed [facility] VACCINE 00:00:00 [facility] TDAP (ADACEL) 2018-02-15 Completed [facility] VACCINE 00:00:00 [facility] TDAP (ADACEL) 2018-02-15 Completed [facility] of VACCINE 00:00:00 [facility] TDAP (ADACEL) 2018-02-15 Completed [facility] of VACCINE 00:00:00 [facility] TDAP (ADACEL) 2018-02-15 Completed [facility] of VACCINE 00:00:00 [facility] TDAP (ADACEL) 2018-02-15 Completed [facility] of VACCINE 00:00:00 [facility] TDAP (ADACEL) 2018-02-15 Completed [facility] of VACCINE 00:00:00 [facility] TDAP (ADACEL) 2018-02-15 Completed [facility] of VACCINE 00:00:00 [facility] TDAP (ADACEL) 2018-02-15 Completed [facility] of VACCINE 00:00:00 [facility] TDAP (ADACEL) 2018-02-15 Completed [facility] of VACCINE 00:00:00 [facility] TDAP (ADACEL) 2018-02-15 Completed [facility] of VACCINE 00:00:00 [facility] TDAP (ADACEL) 2018-02-15 Completed [facility] of VACCINE 00:00:00 [facility] TDAP (ADACEL) 2018-02-15 Completed [facility] of VACCINE 00:00:00 [facility] TDAP (ADACEL) 2018-02-15 Completed [facility] of VACCINE 00:00:00 [facility] TDAP (ADACEL) 2018-02-15 Completed [facility] of VACCINE 00:00:00 [facility] TDAP (ADACEL) 2018-02-15 Completed [facility] of VACCINE 00:00:00 [facility] TDAP (ADACEL) 2018-02-15 Completed [facility] of VACCINE 00:00:00 [facility] TDAP (ADACEL) 2018-02-15 Completed [facility] of VACCINE 00:00:00 [facility] TDAP (ADACEL) 2018-02-15 Completed [facility] VACCINE 00:00:00 [facility] TDAP (ADACEL) 2018-02-15 Completed [facility] of VACCINE 00:00:00 [facility] TDAP (ADACEL) 2018-02-15 Completed [facility] of VACCINE 00:00:00 [facility] TDAP (ADACEL) 2018-02-15 Completed [facility] of VACCINE 00:00:00 [facility] TDAP (ADACEL) 2018-02-15 Completed [facility] of VACCINE 00:00:00 [facility] TDAP (ADACEL) 2018-02-15 Completed [facility] of VACCINE 00:00:00 [facility] TDAP (ADACEL) 2018-02-15 Completed [facility] of VACCINE 00:00:00 [facility] TDAP (ADACEL) 2018-02-15 Completed [facility] of VACCINE 00:00:00 [facility] Influenza Virus 2017-12-14 Completed Universit y of [facility] IM 3+ 00:00:00 [facility] Influenza Virus 2017-12-14 Completed [facility]it y of [facility] 3+ 00:00:00 [facility] Influenza Virus 2017-12-14 Completed [facility] y of [facility] 3+ 00:00:00 [facility] Influenza Virus 2017-12-14 Completed [facility] y of [facility] 3+ 00:00:00 [facility] Influenza Virus 2017-12-14 Completed [facility] y of [facility] 3+ 00:00:00 [facility] Influenza Virus 2017-12-14 Completed [facility] y of [facility] 3+ 00:00:00 [facility] Influenza Virus 2017-12-14 Completed [facility] y of [facility] 3+ 00:00:00 [facility] Influenza Virus 2017-12-14 Completed [facility] y of [facility] 3+ 00:00:00 [facility] Influenza Virus 2017-12-14 Completed [facility] y of [facility] 3+ 00:00:00 [facility] Influenza Virus 2017-12-14 Completed [facility] y of [facility] 3+ 00:00:00 [facility] Influenza Virus 2017-12-14 Completed [facility] y of [facility] 3+ 00:00:00 [facility] Influenza Virus 2017-12-14 Completed [facility] y of [facility] 3+ 00:00:00 [facility] Influenza Virus 2017-12-14 Completed [facility] y of [facility] 3+ 00:00:00 [facility] Influenza Virus 2017-12-14 Completed [facility] y of [facility] 3+ 00:00:00 [facility] Influenza Virus 2017-12-14 Completed [facility] y of [facility] 3+ 00:00:00 [facility] Influenza Virus 2017-12-14 Completed [facility] y of [facility] 3+ 00:00:00 [facility] Influenza Virus 2017-12-14 Completed [facility] y of [facility] 3+ 00:00:00 [facility] Influenza Virus 2017-12-14 Completed [facility] y of [facility] 3+ 00:00:00 [facility] Influenza Virus 2017-12-14 Completed [facility] of [facility] 3+ 00:00:00 [facility] Influenza Virus 2017-12-14 Completed [facility] 3+ 00:00:00 [facility] Influenza Virus 2017-12-14 Completed [facility] y of [facility] 3+ 00:00:00 [facility] Influenza Virus 2017-12-14 Completed [facility] y of [facility] 3+ 00:00:00 [facility] Influenza Virus 2017-12-14 Completed [facility] y of [facility] 3+ 00:00:00 [facility] Influenza Virus 2017-12-14 Completed [facility] 3+ 00:00:00 [facility] Influenza Virus 2017-12-14 Completed [facility] 3+ 00:00:00 [facility] Influenza Virus 2017-12-14 Completed [facility] 3+ 00:00:00 [facility] Influenza Virus 2017-12-14 Completed [facility] 3+ 00:00:00 [facility] Influenza Virus 2017-12-14 Completed [facility] 3+ 00:00:00 [facility] Influenza Virus 2017-12-14 Completed [facility] 3+ 00:00:00 [facility] Influenza Virus 2017-12-14 Completed [facility] 3+ 00:00:00 [facility] Influenza Virus 2017-12-14 Completed [facility] 3+ 00:00:00 [facility] Influenza Virus 2017-12-14 Completed [facility] of [facility] 3+ 00:00:00 [facility] Influenza Virus 2017-12-14 Completed [facility] 3+ 00:00:00 [facility] Influenza Virus 2017-12-14 Completed [facility] of [facility] 3+ 00:00:00 [facility] Influenza Virus 2017-12-14 Completed [facility] 3+ 00:00:00 [facility] Influenza Virus 2017-12-14 Completed [facility] 3+ 00:00:00 [facility] Influenza Virus 2017-12-14 Completed [facility] 3+ 00:00:00 [facility] Influenza Virus 2017-12-14 Completed [facility] 3+ 00:00:00 [facility] Influenza Virus 2017-12-14 Completed [facility] 3+ 00:00:00 [facility] Influenza Virus 2017-12-14 Completed [facility] 3+ 00:00:00 [facility] Influenza Virus 2017-12-14 Completed [facility] 3+ 00:00:00 [facility] Influenza Virus 2017-12-14 Completed [facility] 3+ 00:00:00 [facility] Influenza Virus 2017-12-14 Completed [facility] 3+ 00:00:00 [facility] Influenza Virus 2017-12-14 Completed [facility] 3+ 00:00:00 [facility] Influenza Virus 2017-12-14 Completed [facility] 3+ 00:00:00 [facility] Influenza Virus 2017-12-14 Completed [facility] 3+ 00:00:00 [facility] Influenza Virus 2017-12-14 Completed [facility] 3+ 00:00:00 [facility] Influenza Virus 2017-12-14 Completed [facility] of [facility] 3+ 00:00:00 [facility] Influenza Virus 2017-12-14 Completed [facility] of [facility] 3+ 00:00:00 [facility] Influenza Virus 2017-12-14 Completed [facility] 3+ 00:00:00 [facility] Influenza Virus 2017-12-14 Completed [facility] 3+ 00:00:00 [facility] Influenza Virus 2017-12-14 Completed [facility] 3+ 00:00:00 [facility] Influenza Virus 2017-12-14 Completed [facility] 3+ 00:00:00 [facility] Influenza Virus 2017-12-14 Completed [facility] 3+ 00:00:00 [facility] Influenza Virus 2017-12-14 Completed [facility] 3+ 00:00:00 [facility] Influenza Virus 2017-12-14 Completed [facility] 3+ 00:00:00 [facility] [facility] Influenza Virus 2017-12-14 Completed [facility]it y of Vaccine Quad IM 3+ 00:00:00 [facility] Influenza Virus 2017-12-14 Completed [facility]it y of Vaccine Quad IM 3+ 00:00:00 [facility] Influenza Virus 2017-12-14 Completed [facility]it y of Vaccine [facility] IM 3+ 00:00:00 [facility] Influenza Virus 2017-12-14 Completed [facility]it y of Vaccine Quad IM 3+ 00:00:00 [facility] Influenza Virus 2017-12-14 Completed [facility]it y of Vaccine Quad IM 3+ 00:00:00 [facility] Influenza Virus 2017-12-14 Completed [facility]it y of Vaccine [facility] IM 3+ 00:00:00 [facility] Influenza Virus 2017-12-14 Completed [facility]it y of Vaccine Quad IM 3+ 00:00:00 [facility] Influenza Virus 2017-12-14 Completed [facility]it y of Vaccine Quad IM 3+ 00:00:00 [facility] Influenza Virus 2017-12-14 Completed [facility]it y of Vaccine Quad IM 3+ 00:00:00 [facility] Influenza Virus 2017-12-14 Completed [facility]it y of Vaccine Quad IM 3+ 00:00:00 [facility] Influenza Virus 2017-12-14 Completed [facility]it y of Vaccine Quad IM 3+ 00:00:00 [facility] Influenza Virus 2017-12-14 Completed [facility]it y of Vaccine Quad IM 3+ 00:00:00 [facility] Influenza Virus 2017-12-14 Completed [facility]it y of Vaccine Quad IM 3+ 00:00:00 [facility] Influenza Virus 2017-12-14 Completed [facility]it y of Vaccine Quad IM 3+ 00:00:00 [facility] Influenza Virus 2017-12-14 Completed [facility]it y of Vaccine Quad IM 3+ 00:00:00 [facility] Influenza Virus 2017-12-14 Completed [facility]it y of Vaccine Quad IM 3+ 00:00:00 [facility] Influenza Virus 2017-12-14 Completed [facility]it y of Vaccine Quad IM 3+ 00:00:00 [facility] Influenza Virus 2017-12-14 Completed [facility]it y of Vaccine Quad IM 3+ 00:00:00 [facility] Influenza Virus 2017-12-14 Completed [facility]it y of Vaccine Quad IM 3+ 00:00:00 [facility] Influenza Virus 2017-12-14 Completed [facility]it y of Vaccine Quad IM 3+ 00:00:00 [facility] Influenza Virus 2017-12-14 Completed [facility]it y of Vaccine Quad IM 3+ 00:00:00 [facility] Influenza Virus 2017-12-14 Completed [facility]it y of Vaccine Quad IM 3+ 00:00:00 [facility] Influenza Virus 2017-12-14 Completed [facility]it y of Vaccine Quad IM 3+ 00:00:00 [facility] Influenza Virus 2017-12-14 Completed [facility]it y of Vaccine Quad IM 3+ 00:00:00 [facility] Influenza Virus 2017-12-14 Completed [facility]it y of Vaccine Quad IM 3+ 00:00:00 [facility] Influenza Virus 2017-12-14 Completed [facility]it y of Vaccine Quad IM 3+ 00:00:00 [facility] Influenza Virus 2017-12-14 Completed [facility]it y of Vaccine Quad IM 3+ 00:00:00 [facility] Influenza Virus 2017-12-14 Completed [facility]it y of Vaccine Quad IM 3+ 00:00:00 [facility] Influenza Virus 2017-12-14 Completed [facility]it y of Vaccine Quad IM 3+ 00:00:00 [facility] Influenza Virus 2017-12-14 Completed [facility]it y of Vaccine Quad IM 3+ 00:00:00 [facility] Influenza Virus 2017-12-14 Completed [facility]it y of Vaccine Quad IM 3+ 00:00:00 [facility] Varicella 2016-05-24 Completed University of (varivax)(chicken 00:00:00 [...] 2016-04-03 Completed University of 00:00:00 [facility] TDAP 2016-04-03 Completed University of 00:00:00 [facility] TDAP 2016-04-03 Completed University of 00:00:00 [facility] TDAP 2016-04-03 Completed University of 00:00:00 [facility] TDAP 2016-04-03 Completed University of 00:00:00 [facility] TDAP 2016-04-03 Completed University of 00:00:00 [facility] TDAP 2016-04-03 Completed University of 00:00:00 [facility] TDAP 2016-04-03 Completed University of 00:00:00 [facility] TDAP 2016-04-03 Completed University of 00:00:00 [facility] TDAP 2016-04-03 Completed University of 00:00:00 [facility] TDAP 2016-04-03 Completed University of 00:00:00 [facility] TDAP 2016-04-03 Completed University of 00:00:00 [facility] TDAP 2016-04-03 Completed University of 00:00:00 [facility] TDAP 2016-04-03 Completed University of 00:00:00 [facility] TDAP 2016-04-03 Completed University of 00:00:00 [facility] TDAP 2016-04-03 Completed University of 00:00:00 [facility] TDAP 2016-04-03 Completed University of 00:00:00 [facility] TDAP 2016-04-03 Completed University of 00:00:00 [facility] TDAP 2016-04-03 Completed University of 00:00:00 [facility] TDAP 2016-04-03 Completed University of 00:00:00 [facility] TDAP 2016-04-03 Completed University of 00:00:00 [facility] TDAP 2016-04-03 Completed University of 00:00:00 [facility] TDAP 2016-04-03 Completed University of 00:00:00 [facility] TDAP 2016-04-03 Completed University of 00:00:00 [facility] TDAP 2016-04-03 Completed University of 00:00:00 [facility] TDAP 2016-04-03 Completed University of 00:00:00 [facility] TDAP 2016-04-03 Completed University of 00:00:00 [facility] TDAP 2016-04-03 Completed University of 00:00:00 [facility] TDAP 2016-04-03 Completed University of 00:00:00 [facility] TDAP 2016-04-03 Completed University of 00:00:00 [facility] TDAP 2016-04-03 Completed University of 00:00:00 [facility] TDAP 2016-04-03 Completed University of 00:00:00 [facility] TDAP 2016-04-03 Completed University of 00:00:00 [facility] TDAP 2016-04-03 Completed University of 00:00:00 [facility] TDAP 2016-04-03 Completed University of 00:00:00 [facility] TDAP 2016-04-03 Completed University of 00:00:00 [facility] TDAP 2016-04-03 Completed University of 00:00:00 [facility] TDAP 2016-04-03 Completed University of 00:00:00 [facility] TDAP 2016-04-03 Completed University of 00:00:00 [facility] TDAP 2016-04-03 Completed University of 00:00:00 [facility] TDAP 2016-04-03 Completed University of 00:00:00 [facility] TDAP 2016-04-03 Completed University of 00:00:00 [facility] TDAP 2016-04-03 Completed University of 00:00:00 [facility] TDAP 2016-04-03 Completed University of 00:00:00 [facility] TDAP 2016-04-03 Completed University of 00:00:00 [facility] TDAP 2016-04-03 Completed University of 00:00:00 [facility] TDAP 2016-04-03 Completed University of 00:00:00 [facility] TDAP 2016-04-03 Completed University of 00:00:00 [facility] TDAP 2016-04-03 Completed University of 00:00:00 [facility] TDAP 2016-04-03 Completed University of 00:00:00 [facility] TDAP 2016-04-03 Completed University of 00:00:00 [facility] TDAP 2016-04-03 Completed University of 00:00:00 [facility] TDAP 2016-04-03 Completed University of 00:00:00 [facility] TDAP 2016-04-03 Completed University of 00:00:00 [facility] TDAP 2016-04-03 Completed University of 00:00:00 [facility] TDAP 2016-04-03 Completed University of 00:00:00 [facility] TDAP 2016-04-03 Completed University of 00:00:00 [facility] TDAP 2016-04-03 Completed University of 00:00:00 [facility] TDAP 2016-04-03 Completed University of 00:00:00 [facility] TDAP 2016-04-03 Completed University of 00:00:00 [facility] TDAP 2016-04-03 Completed University of 00:00:00 [facility] TDAP 2016-04-03 Completed University of 00:00:00 [facility] TDAP 2016-04-03 Completed University of 00:00:00 [facility] TDAP 2016-04-03 Completed University of 00:00:00 [facility] TDAP 2016-04-03 Completed University of 00:00:00 [facility] TDAP 2016-04-03 Completed University of 00:00:00 [facility] TDAP 2016-04-03 Completed University of 00:00:00 [facility] TDAP 2016-04-03 Completed University of 00:00:00 [facility] TDAP 2016-04-03 Completed University of 00:00:00 [facility] TDAP 2016-04-03 Completed University of 00:00:00 [facility] TDAP 2016-04-03 Completed University of 00:00:00 [facility] TDAP 2016-04-03 Completed University of 00:00:00 [facility] TDAP 2016-04-03 Completed University of 00:00:00 [facility] TDAP 2016-04-03 Completed University of 00:00:00 [facility] TDAP 2016-04-03 Completed University of 00:00:00 [facility] TDAP 2016-04-03 Completed University of 00:00:00 [facility] TDAP 2016-04-03 Completed University of 00:00:00 [facility] TDAP 2016-04-03 Completed University of 00:00:00 [facility] TDAP 2016-04-03 Completed University of 00:00:00 [facility] TDAP 2016-04-03 Completed University of 00:00:00 [facility] TDAP 2016-04-03 Completed University of 00:00:00 [facility] TDAP 2016-04-03 Completed University of 00:00:00 [facility] TDAP 2016-04-03 Completed University of 00:00:00 [facility] TDAP 2016-04-03 Completed University of 00:00:00 [facility] TDAP 2016-04-03 Completed [facility] of 00:00:00 [facility] TDAP 2016-04-03 Completed University of 00:00:00 [facility] TDAP 2016-04-03 Completed University of 00:00:00 [facility] Rho (d) Immune 2016-03-27 Completed University of Globulin 00:00:00 [facility] Rho (d) Immune 2016-03-27 Completed University of Globulin 00:00:00 [facility] Rho (d) Immune 2016-03-27 Completed [facility] of Globulin 00:00:00 [facility] Rho (d) Immune 2016-03-27 Completed [facility] of Globulin 00:00:00 [facility] Rho (d) Immune 2016-03-27 Completed [facility] of Globulin 00:00:00 [facility] Rho (d) Immune 2016-03-27 Completed [facility] of Globulin 00:00:00 [facility] Rho (d) Immune 2016-03-27 Completed [facility] of Globulin 00:00:00 [facility] Rho (d) Immune 2016-03-27 Completed University of Globulin 00:00:00 [facility] Rho (d) Immune 2016-03-27 Completed University of Globulin 00:00:00 [facility] Rho (d) Immune 2016-03-27 Completed [facility] of Globulin 00:00:00 [facility] Rho (d) Immune 2016-03-27 Completed University of Globulin 00:00:00 [facility] Rho (d) Immune 2016-03-27 Completed [facility] of Globulin 00:00:00 [facility] Rho (d) Immune 2016-03-27 Completed [facility] of Globulin 00:00:00 [facility] Rho (d) Immune 2016-03-27 Completed [facility] of Globulin 00:00:00 [facility] Rho (d) Immune 2016-03-27 Completed [facility] of Globulin 00:00:00 [facility] Rho (d) Immune 2016-03-27 Completed [facility] of Globulin 00:00:00 [facility] Rho (d) Immune 2016-03-27 Completed [facility] of Globulin 00:00:00 [facility] Rho (d) Immune 2016-03-27 Completed [facility] of Globulin 00:00:00 [facility] Rho (d) Immune 2016-03-27 Completed [facility] of Globulin 00:00:00 [facility] Rho (d) Immune 2016-03-27 Completed [facility] of Globulin 00:00:00 [facility] Rho (d) Immune 2016-03-27 Completed [facility] of Globulin 00:00:00 [facility] Rho (d) Immune 2016-03-27 Completed [facility] of Globulin 00:00:00 [facility] Rho (d) Immune 2016-03-27 Completed [facility] of Globulin 00:00:00 [facility] Rho (d) Immune 2016-03-27 Completed [facility] of Globulin 00:00:00 [facility] Rho (d) Immune 2016-03-27 Completed [facility] of Globulin 00:00:00 [facility] Rho (d) Immune 2016-03-27 Completed [facility] of Globulin 00:00:00 [facility] Rho (d) Immune 2016-03-27 Completed [facility] of Globulin 00:00:00 [facility] Rho (d) Immune 2016-03-27 Completed [facility] of Globulin 00:00:00 [facility] Rho (d) Immune 2016-03-27 Completed [facility] of Globulin 00:00:00 [facility] Rho (d) Immune 2016-03-27 Completed [facility] of Globulin 00:00:00 [facility] Rho (d) Immune 2016-03-27 Completed [facility] of Globulin 00:00:00 [facility] Rho (d) Immune 2016-03-27 Completed [facility] of Globulin 00:00:00 [facility] Rho (d) Immune 2016-03-27 Completed [facility] of Globulin 00:00:00 [facility] Rho (d) Immune 2016-03-27 Completed University of Globulin 00:00:00 [facility] Rho (d) Immune 2016-03-27 Completed University of Globulin 00:00:00 [facility] Rho (d) Immune 2016-03-27 Completed [facility] of Globulin 00:00:00 [facility] Rho (d) Immune 2016-03-27 Completed [facility] of Globulin 00:00:00 [facility] Rho (d) Immune 2016-03-27 Completed [facility] of Globulin 00:00:00 [facility] Rho (d) Immune 2016-03-27 Completed [facility] of Globulin 00:00:00 [facility] Rho (d) Immune 2016-03-27 Completed [facility] of Globulin 00:00:00 [facility] Rho (d) Immune 2016-03-27 Completed [facility] of Globulin 00:00:00 [facility] Rho (d) Immune 2016-03-27 Completed [facility] of Globulin 00:00:00 [facility] Rho (d) Immune 2016-03-27 Completed [facility] of Globulin 00:00:00 [facility] Rho (d) Immune 2016-03-27 Completed [facility] of Globulin 00:00:00 [facility] Rho (d) Immune 2016-03-27 Completed [facility] of Globulin 00:00:00 [facility] Rho (d) Immune 2016-03-27 Completed [facility] of Globulin 00:00:00 [facility] Rho (d) Immune 2016-03-27 Completed [facility] of Globulin 00:00:00 [facility] Rho (d) Immune 2016-03-27 Completed [facility] of Globulin 00:00:00 [facility] Rho (d) Immune 2016-03-27 Completed [facility] of Globulin 00:00:00 [facility] Rho (d) Immune 2016-03-27 Completed [facility] of Globulin 00:00:00 [facility] Rho (d) Immune 2016-03-27 Completed [facility] of Globulin 00:00:00 [facility] Rho (d) Immune 2016-03-27 Completed [facility] of Globulin 00:00:00 [facility] Rho (d) Immune 2016-03-27 Completed University of Globulin 00:00:00 [facility] Rho (d) Immune 2016-03-27 Completed [facility] of Globulin 00:00:00 [facility] Rho (d) Immune 2016-03-27 Completed [facility] of Globulin 00:00:00 [facility] Rho (d) Immune 2016-03-27 Completed [facility] of Globulin 00:00:00 [facility] Rho (d) Immune 2016-03-27 Completed [facility] of Globulin 00:00:00 [facility] Rho (d) Immune 2016-03-27 Completed [facility] of Globulin 00:00:00 [facility] Rho (d) Immune 2016-03-27 Completed [facility] of Globulin 00:00:00 [facility] Rho (d) Immune 2016-03-27 Completed [facility] of Globulin 00:00:00 [facility] Rho (d) Immune 2016-03-27 Completed [facility] of Globulin 00:00:00 [facility] Rho (d) Immune 2016-03-27 Completed [facility] of Globulin 00:00:00 [facility] Rho (d) Immune 2016-03-27 Completed [facility] of Globulin 00:00:00 [facility] Rho (d) Immune 2016-03-27 Completed [facility] of Globulin 00:00:00 [facility] Rho (d) Immune 2016-03-27 Completed [facility] of Globulin 00:00:00 [facility] Rho (d) Immune 2016-03-27 Completed [facility] of Globulin 00:00:00 [facility] Rho (d) Immune 2016-03-27 Completed [facility] of Globulin 00:00:00 [facility] Rho (d) Immune 2016-03-27 Completed [facility] of Globulin 00:00:00 [facility] Rho (d) Immune 2016-03-27 Completed [facility] of Globulin 00:00:00 [facility] Rho (d) Immune 2016-03-27 Completed [facility] of Globulin 00:00:00 [facility] Rho (d) Immune 2016-03-27 Completed [facility] of Globulin 00:00:00 [facility] Rho (d) Immune 2016-03-27 Completed [facility] of Globulin 00:00:00 [facility] Rho (d) Immune 2016-03-27 Completed [facility] of Globulin 00:00:00 [facility] Rho (d) Immune 2016-03-27 Completed [facility] of Globulin 00:00:00 [facility] Rho (d) Immune 2016-03-27 Completed [facility] of Globulin 00:00:00 [facility] Rho (d) Immune 2016-03-27 Completed [facility] of Globulin 00:00:00 [facility] Rho (d) Immune 2016-03-27 Completed [facility] of Globulin 00:00:00 [facility] Rho (d) Immune 2016-03-27 Completed [facility] of Globulin 00:00:00 [facility] Rho (d) Immune 2016-03-27 Completed [facility] of Globulin 00:00:00 [facility] Rho (d) Immune 2016-03-27 Completed [facility] of Globulin 00:00:00 [facility] Rho (d) Immune 2016-03-27 Completed [facility] of Globulin 00:00:00 [facility] Rho (d) Immune 2016-03-27 Completed [facility] of Globulin 00:00:00 [facility] Rho (d) Immune 2016-03-27 Completed [facility] of Globulin 00:00:00 [facility] Rho (d) Immune 2016-03-27 Completed [facility] of Globulin 00:00:00 [facility] Rho (d) Immune 2016-03-27 Completed [facility] of Globulin 00:00:00 [facility] Rho (d) Immune 2016-03-27 Completed [facility] of Globulin 00:00:00 [facility] Rho (d) Immune 2016-03-27 Completed [facility] of Globulin 00:00:00 [facility] Vital Signs Vital Name Observation Time Observation Value Comments Source HEIGHT 2020-09-22 06:00:00 152.4 cm WEIGHT 2020-09-22 06:00:00 80.8 kg HEIGHT 2020-09-21 19:00:00 152.4 cm WEIGHT 2020-09-21 19:00:00 80.786 kg Systolic blood 2022-08-30 12:17:00 120 mm[Hg] Univer sity of pressure [facility] Diastolic blood 2022-08-30 12:17:00 75 mm[Hg] Unive rsity of pressure [facility] Heart rate 2022-08-30 12:17:00 78 /min [facility] Body temperature 2022-08-30 12:17:00 [facility].39 [facility] 2022-08-30 12:17:00 16 /[facility] height 2022-08-30 12:17:00 162.6 cm [facility] Body weight 2022-08-30 12:17:00 89.812 kg [facility] BMI 2022-08-30 12:17:00 33.99 kg/m2 [facility] Oxygen saturation in 2022-08-30 12:17:00 99 /min [facility] Arterial blood by [place] [facility] Systolic blood 2022-08-07 20:42:00 128 mm[Hg] Univer sity of pressure [facility] Diastolic blood 2022-08-07 20:42:00 67 mm[Hg] Unive rsity of pressure [facility] Heart rate 2022-08-07 20:42:00 79 /min [facility] Body temperature 2022-08-07 20:42:00 36.17 Shira [facility] Respiratory rate 2022-08-07 20:42:00 18 /min [facility] Body height 2022-08-07 20:42:00 160 cm [facility] Body weight 2022-08-07 20:42:00 90.674 kg [facility] BMI 2022-08-07 20:42:00 35.41 kg/m2 [facility] Systolic blood 2022-07-15 18:41:00 137 mm[Hg] Univer sity of pressure [facility] Diastolic blood 2022-07-15 18:41:00 83 mm[Hg] Unive rsity of pressure [facility] Heart rate 2022-07-15 18:41:00 88 /min [facility] Body temperature 2022-07-15 18:41:00 37.11 Shria [facility] Respiratory rate 2022-07-15 18:41:00 16 /min [facility] Body weight 2022-07-15 18:41:00 90.765 kg [facility] BMI 2022-07-15 18:41:00 35.45 kg/m2 [facility] Oxygen saturation in 2022-07-15 18:41:00 98 /min [facility] Arterial blood by [place] [facility] Systolic blood 2022-07-08 20:58:00 135 mm[Hg] Univer sity of pressure [facility] Diastolic blood 2022-07-08 20:58:00 75 mm[Hg] Unive rsity of pressure [facility] Heart rate 2022-07-08 20:58:00 87 /min [facility] Body temperature 2022-07-08 20:58:00 36.61 Shira [facility] Respiratory rate 2022-07-08 20:58:00 18 /min Univ [facility] Body height 2022-07-08 20:58:00 160 cm [facility] Body weight 2022-07-08 20:58:00 91.683 kg [facility] BMI 2022-07-08 20:58:00 35.80 kg/m2 [facility] Systolic blood 2022-06-17 19:29:00 114 mm[Hg] Univer sity of pressure [facility] Diastolic blood 2022-06-17 19:29:00 83 mm[Hg] Unive rsity of pressure [facility] Heart rate 2022-06-17 19:29:00 88 /min [facility] Body temperature 2022-06-17 19:29:00 36.11 Shira [facility] Respiratory rate 2022-06-17 19:29:00 18 /min [facility] Body height 2022-06-17 19:29:00 160 cm [facility] Body weight 2022-06-17 19:29:00 92.307 kg [facility] BMI 2022-06-17 19:29:00 36.05 kg/m2 [facility] Systolic blood 2022-04-22 02:32:00 129 mm[Hg] Univer sity of pressure [facility] Diastolic blood 2022-04-22 02:32:00 91 mm[Hg] Unive rsity of pressure [facility] Heart rate 2022-04-22 02:32:00 70 /min [facility] Body temperature 2022-04-22 02:32:00 37 Shira [facility] Respiratory rate 2022-04-22 02:32:00 18 /min [facility] Body height 2022-04-22 02:32:00 162.6 cm [facility] Body weight 2022-04-22 02:32:00 86.183 kg [facility] BMI 2022-04-22 02:32:00 32.61 kg/m2 [facility] Oxygen saturation in 2022-04-22 02:32:00 99 /min [facility] [place] [facility] Systolic blood 2022-03-18 [...] 99 /min [facility] Arter[facility] blood by [facility] Pulse oximetry Branch Systolic blood 2022-03-04 17:21:00 115 mm[Hg] [facility] Diastolic blood 2022-03-04 17:21:00 79 mm[Hg] [facility] Heart rate 2022-03-04 17:21:00 82 /min [facility] Respiratory rate 2022-03-04 17:21:00 17 /min [facility] Body weight 2022-03-04 17:21:00 91.128 [...] 98 /min [facility] [place] [facility] Body temperature 2022-02-16 18:25:13 37.22 Shira [facility] Body weight 2022-02-16 17:54:00 92.08 kg [facility] BMI 2022-02-16 17:54:00 34.84 kg/m2 [facility] Systolic blood 2022-02-12 14:54:00 120 mm[Hg] [facility] Diastolic blood 2022-02-12 14:54:00 79 mm[Hg] [facility] Heart rate 2022-02-12 14:54:00 81 /min [facility] Body temperature 2022-02-12 14:54:00 36.67 Shira [facility] Respiratory rate 2022-02-12 14:54:00 18 /min [facility] Oxygen saturation in 2022-02-12 14:54:00 98 /min [facility] blood by [facility] P[facility] oxim[facility] Branch Body height 2022-02-10 22:10:00 162.6 cm [facility] Body weight 2022-02-10 22:10:00 96.163 kg [facility] BMI 2022-02-10 22:10:00 36.39 kg/m2 [facility] Systolic blood 2022-02-06 20:04:00 120 mm[Hg] [facility] Diastolic blood 2022-02-06 20:04:00 76 mm[Hg] [facility] Heart rate 2022-02-06 20:04:00 89 /min [facility] Body temperature 2022-02-06 20:04:00 36.44 Shira [facility] Respiratory rate 2022-02-06 20:04:00 18 /min [facility] Body height 2022-02-06 20:04:00 162.6 cm [facility] Body weight 2022-02-06 20:04:00 96.344 kg [facility] BMI 2022-02-06 20:04:00 36.46 kg/m2 [facility] Systolic blood 2022-02-03 21:03:00 121 mm[Hg] [facility] Diastolic blood 2022-02-03 21:03:00 73 mm[Hg] [facility] Heart rate 2022-02-03 21:03:00 85 /min [facility] Body temperature 2022-02-03 21:03:00 36.44 Shira [facility] Respiratory rate 2022-02-03 21:03:00 17 /min [facility] Body height 2022-02-03 21:03:00 162.6 cm [facility] Body weight 2022-02-03 21:03:00 96.525 kg [facility] BMI 2022-02-03 21:03:00 36.53 kg/m2 [facility] [place] [facility] Heart rate 2022-01-30 23:30:00 102 /min [facility] Oxygen saturation in 2022-01-30 23:30:00 99 /min [facility] by [facility] Pulse oximetry Branch Systolic blood 2022-01-30 22:45:00 118 mm[Hg] [facility] Diastolic blood 2022-01-30 22:45:00 69 mm[Hg] [facility] Respiratory rate 2022-01-30 22:10:00 38 /min [facility] Body temperature 2022-01-30 21:43:00 37.06 Shira [facility] Body height 2022-01-30 21:43:00 162.6 cm [facility] Body weight 2022-01-30 21:43:00 95.709 kg [facility] BMI 2022-01-30 21:43:00 36.22 kg/m2 [facility] Systolic blood 2022-01-29 20:36:00 128 mm[Hg] [facility] Diastolic blood 2022-01-29 20:36:00 76 mm[Hg] [facility] Heart rate 2022-01-29 20:36:00 78 /min [facility] Body temperature 2022-01-29 20:36:00 36.78 Shira [facility] Respiratory rate 2022-01-29 20:36:00 18 /min [facility] Body height 2022-01-29 20:36:00 162.6 cm [facility] Body weight 2022-01-29 20:36:00 96.117 kg [facility] BMI 2022-01-29 20:36:00 36.37 kg/m2 [facility] Systolic blood 2022-01-27 18:57:00 118 mm[Hg] [facility] Diastolic blood 2022-01-27 18:57:00 72 mm[Hg] [facility] Heart rate 2022-01-27 18:57:00 86 /min [facility] Body temperature 2022-01-27 18:57:00 36.61 Shira [facility] Respiratory rate 2022-01-27 18:57:00 20 /min [facility] Body height 2022-01-27 18:57:00 162.6 cm [facility] Body weight 2022-01-27 18:57:00 96.798 kg [facility] BMI 2022-01-27 18:57:00 36.63 kg/m2 [facility] Systolic blood 2022 21:02:00 126 mm[Hg] [facility] Diastolic blood 2022 21:02:00 68 mm[Hg] [facility] Heart rate 2022 21:02:00 88 /min [facility] Body temperature 2022 21:02:00 36.39 Shira [facility] Respiratory rate 2022 21:02:00 17 /min [facility] Body height 2022 21:02:00 162.6 cm [facility] Body weight 2022 21:02:00 97.16 kg [facility] BMI 2022 21:02:00 36.77 kg/m2 [facility] Systolic blood 2022-01-21 16:22:00 132 [...] 2022-01-21 16:22:00 36.27 kg/m2 [facility] Systolic blood 2022-01-16 19:35:00 121 [...] 2022-01-13 16:56:00 17 /min [facility] Body height 2022-01-13 16:56:00 162.6 cm [facility] Body weight 2022-01-13 16:56:00 96.163 kg [facility] BMI 2022-01-13 16:56:00 36.39 kg/m2 [facility] Systolic blood 2022-01-09 18:46:00 115 mm[Hg] [facility] Diastolic blood 2022-01-09 18:46:00 79 mm[Hg] [facility] Heart rate 2022-01-09 18:46:00 79 /min [facility] Body temperature 2022-01-09 18:46:00 36.67 Shira [facility] Respiratory rate 2022-01-09 18:46:00 18 /min [facility] Body height 2022-01-09 18:46:00 162.6 cm [facility] Body weight 2022-01-09 18:46:00 96.117 kg [facility] BMI 2022-01-09 18:46:00 36.37 kg/m2 [facility] Systolic blood 2022-01-06 19:15:00 132 mm[Hg] [facility] Diastolic blood 2022-01-06 19:15:00 74 mm[Hg] [facility] Heart rate 2022-01-06 19:15:00 86 /min [facility] Body temperature 2022-01-06 19:15:00 36.78 Shira [facility] Respiratory rate 2022-01-06 19:15:00 18 /min [facility] Body height 2022-01-06 19:15:00 162.6 cm [facility] Body weight 2022-01-06 19:15:00 94.944 kg [facility] BMI 2022-01-06 19:15:00 35.93 kg/m2 [facility] Systolic blood 2022-01-02 18:24:00 111 [...] 2022-01-02 18:24:00 35.79 kg/m2 [facility] Systolic blood 2021-12-30 20:46:00 137 [...] 2021-12-17 19:45:00 18 /min [facility] Body height 2021-12-17 19:45:00 162.6 cm [facility] Body weight 2021-12-17 19:45:00 94.065 kg [facility] BMI 2021-12-17 19:45:00 35.60 kg/m2 [facility] Heart rate 2021-12-01 21:00:00 90 /min [facility] Oxygen saturation in 2021-12-01 21:00:00 99 /min [facility] [place] [facility] Systolic blood 2021-12-01 20:45:00 136 mm[Hg] [facility] Diastolic blood 2021-12-01 20:45:00 73 mm[Hg] [facility] Body temperature 2021-12-01 20:12:00 36.33 Shira [facility] Respiratory rate 2021-12-01 20:12:00 18 /min [facility] Body weight 2021-12-01 19:42:00 92.987 kg [facility] BMI 2021-12-01 19:42:00 35.19 kg/m2 [facility] Systolic blood 2021-11-30 16:47:00 133 mm[Hg] [facility] Diastolic blood 2021-11-30 16:47:00 73 mm[Hg] [facility] Heart rate 2021-11-30 16:47:00 96 /min [facility] Body temperature 2021-11-30 16:47:00 36.17 Shira [facility] Respiratory rate 2021-11-30 16:47:00 18 /min [facility] Body weight 2021-11-30 16:47:00 94.031 kg [facility] BMI 2021-11-30 16:47:00 35.58 kg/m2 [facility] Oxygen saturation in 2021-11-30 16:47:00 97 /min [facility] by [facility] Systolic blood 2021-11-29 13:03:00 113 mm[Hg] [facility]iver [facility]ity of pressure [facility] Diastolic blood 2021-11-29 13:03:00 65 mm[Hg] [facility] Heart rate 2021-11-29 13:03:00 82 /min [facility] 2021-11-29 13:03:[address] [facility] 2021-11-29 13:03:00 20 /min [facility] Body height 2021-11-29 13:03:00 162.6 cm [facility] Body weight 2021-11-29 13:03:00 92.987 kg [facility] BMI 2021-11-29 13:03:00 35.19 kg/m2 [facility] Oxygen saturation in 2021-11-29 13:03:00 100 /min [facility] blood by [facility] Pulse oximetry Branch HEIGHT 2020-09-22 06:00:00 152.4 cm WEIGHT 2020-09-22 06:00:00 80.8 kg HEIGHT 2020-09-21 19:00:00 152.4 cm WEIGHT 2020-09-21 19:00:00 80.786 kg Procedures Procedure Date / Time Performing Clinician Source Performed CONSENT/REFUSAL FOR 2022-08-30 12:11:49 Doctor Unassmindi, [facility] DIAGNOSIS AND TREATMENT [facility] POCT URINALYSIS 2022-08-07 20:46:00 Taya [facility] FIRST TRIMESTER 2022-07-28 16:17:00 Taya, [facility] ULTRASOUND [facility] BASIC METABOLIC PANEL 2022-07-15 19:27:00 Dariela Jacob [facility] (NA, K, CL, CO2, GLUCOSE, Medica l Branch BUN, CREATININE, CA) CBC WITH DIFF 2022-07-15 19:27:00 Dariela Jacob [facility] URINALYSIS 2022-07-15 19:27:00 Dariela Jacob [facility] ASSIGNMENT OF BENEFITS 2022-07-15 19:07:00 Doctor [facility] CONSENT/REFUSAL FOR 2022-07-15 18:26:58 Doctor Unassmindi, [facility] DIAGNOSIS AND TREATMENT [facility] POCT URINALYSIS 2022-07-08 20:58:00 Mallory Bain [place] o [facility] POCT TEST 2022-06-17 19:17:00 Alma Solis [facility] POCT URINALYSIS W/O 2022-06-17 19:17:00 Alma Solis [facility] SPECIFIC GRAVITY [facility] PATIENT FINANCIAL 2022-06-17 19:02:51 Doctor Unassigned, Un [facility] POLICY [facility] POCT TEST 2022-04-22 05:04:00 Kiarra Arizmendi [facility] COMP. METABOLIC PANEL 2022-04-22 04:35:00 Kaylee ArizmendiFormerly [facility] ([id number]) [facility] CBC WITH DIFF 2022-04-22 04:35:00 [facility] URINALYSIS 2022-04-22 04:35:00 [facility]go [facility] NOTICE OF PRIVACY 2022-04-22 02:08:27 Doctor Thien, [facility] PRACTICES [facility] CONSENT/REFUSAL FOR 2022-04-22 02:07:10 Doctor Thien, [facility] DIAGNOSIS AND TREATMENT [facility] PREPARE PACKED RBC 2022-02-16 23:41:05 Raven Goldsmith [facility] CT CHEST PULMONARY 2022-02-16 21:13:19 Raven Goldsmith [facility] ANGIOGRAM [facility] [place] CT HEAD WO CONTRAST 2022-02-16 21:12:52 Raven Goldsmith [facility] US PELVIS COMPLETE WITH 2022-02-16 19:47:38 Raven Goldsmith [facility] TRANSVAGINAL [facility] HB ABO GROUPING 2022-02-16 18:30:00 Raven Goldsmith [facility] MAGNESIUM 2022-02-16 18:29:00 Raven Goldsmith [facility] TROPONIN I 2022-02-16 18:29:00 Raven Goldsmith [facility] COMP. METABOLIC PANEL 2022-02-16 18:29:00 Raven Goldsmith [facility] ([id number]) [facility] CBC WITH DIFF 2022-02-16 18:29:00 Raven Goldsmith [facility] PROTHROMBIN TIME / INR 2022-02-16 18:29:00 Raven Goldsmith [facility] ACTIVATED PARTIAL 2022-02-16 18:29:00 Raven Goldsmith [facility] THRMPLAS ISABELL [facility] N-TERMINAL PRO-BNP 2022-02-16 18:29:00 Raven Goldsmith [facility] URINALYSIS 2022-02-16 18:14:00 Agus Raven [facility] URINE DRUG (IMMUNOASSAY) 2022-02-16 18:14:00 Raven Goldsmith [facility] DRUG [facility] nch SCREEN W/O REFLEX CONSENT/REFUSAL FOR 2022-02-16 17:48:27 Doctor Unassigned, [facility] DIAGNOSIS AND TREATMENT [facility] CBC WITH DIFF 2022-02-12 10:03[facility] 2022-02-12 10:00[facility]00 [facility] VENOUS CORD GAS 2022-02-11 16:58:00 James [facility] CENTRAL NEURAXIAL BLOCK 2022-02-11 06:58:26 Nory Jiménez [facility] CBC WITH DIFF 2022-02-10 23:27:00 James [facility] HEPATITIS B SURFACE 2022-02-10 23:27:00 Raya Ramirez [facility] ANTIGEN [facility] HIV 1/2 AG-AB WITH REFLEX 2022-02-10 23:27:00 Raya Ramirez [facility] GALV ONLY - SYPHILIS 2022-02-10 23:27:00 [facility] ANTI-D R/O PANEL 2022-02-10 23:25:00 Ramirez, Raya [facility] HB ABO GROUPING 2022-02-10 23:25:00 [facility] o f [facility] RHO (D) IMMUNE GLOBULIN 2022-02-10 23:25:00 Magaly Cleaning [facility] AUTHORIZATION FOR RELEASE 2022-02-07 06:01:00 Doctor Unassigned, [facility] NON-STRESS TEST 2022-02-06 21:51:27 Kevin Singh [facility] POCT URINALYSIS 2022-02-06 00:00:00 Alma Solis [facility] POCT URINALYSIS 2022-02-03 22:20:00 Alma Solis [facility] NON-STRESS TEST 2022-02-03 21:35:28 FlorindaAlma looney U [facility] URINE DRUG (IMMUNOASSAY) 2022-01-30 22:11:00 Dennys Lara [facility] SCREEN URINALYSIS 2022-01-30 22:11:00 Areli Patel [facility] HB ABO GROUPING 2022-01-30 21:57:00 Areli Patel [facility] LIPASE 2022-01-30 21:52:00 Areli Patel [facility] MAGNESIUM 2022-01-30 21:52:00 Areli Patel [facility] COMP. METABOLIC PANEL 2022-01-30 21:52:00 Areli Patel [facility] ([id number]) [facility] CBC WITH DIFF 2022-01-30 21:52:00 Areli Patel [facility] PROTHROMBIN TIME / INR 2022-01-30 21:52:00 Areli Patel [facility] COVID-19 (ID NOW RAPID 2022-01-30 21:52:00 Areli Patel [facility] TESTING) [facility] HOSPITAL ADMISSION 2022-01-30 06:01:00 Doctor Unassigned, [facility] NON-STRESS TEST 2022-01-30 02:30:41 [facility]FF 2022-01-29 21:15:00 [facility] GC & CHLAMYDIA AMPLIFIED 2022-01-29 21:15:00 Radha Nobles [facility] GROUP B STREPTOCOCCUS BY 2022-01-29 21:15:00 Radha Nobles [facility] POCT URINALYSIS 2022-01-29 00:00:00 Akinsipe, Alma C [facility] NON-STRESS TEST 2022-01-28 20:12:49 Akinsipe, Alma C U [facility] POCT URINALYSIS 2022-01-27 00:00:00 Akinsipe, Alma C [facility] NON-STRESS TEST 2022 21:50:59 Akinsipe, Alma C U [facility] POCT URINALYSIS 2022 00:00:00 Akinsipe, Alma C [facility] NON-STRESS TEST 2022-01-21 18:09:21 Radha Nobles Un [facility] POCT URINALYSIS 2022-01-21 00:00:00 Akinsipe, Alma C [facility] NON-STRESS TEST 2022-01-16 20:01:49 Amy Sharma [facility] NON-STRESS TEST 2022-01-13 17:45:33 Radha [facility]les [facility] 2022-01-13 00:00:00 Akinsipe, Alma C [facility] POCT URINALYSIS 2022-01-09 18:51:00 Akinsipe, Alma C [facility] NON-STRESS TEST 2022-01-07 14:56:27 Akinsipe, Alma C U [facility] POCT URINALYSIS 2022-01-06 19:16:00 Alma Solis [facility] PATIENT CORRESPONDENCE 2022-01-03 05:01:00 Doctor Thien [facility] (LETTERS, USPS [facility] DOCUMENTATION) NON-STRESS TEST 2022-01-02 20:04:00 Kevin Singh [facility] POCT URINALYSIS 2022-01-02 00:00:00 Alma Solis [facility] POCT URINALYSIS 2021-12-30 20:47:00 Alma Solis [facility] POCT URINALYSIS 2021-12-17 19:46:00 Alma Solis [facility] TDAP VACCINE, >11 YRS, IM 2021-12-17 19:45:33 Alma Solis [facility] URINALYSIS 2021-12-01 21:41:00 Clayton Sheryl [facility] CONSENT/REFUSAL FOR 2021-12-01 19:40:14 Doctor Thien [facility] DIAGNOSIS AND TREATMENT [facility] CONSENT/REFUSAL FOR 2021-11-30 16:38:10 Doctor Thien [facility] 2021-11-29 00:00:00 Alma Solis [facility] AUTHORIZATION FOR RELEASE 2021-07-19 05:01:00 Doctor Thien [facility] Plan of Care Planned Activity Planned [...] or Tdap)] Future Scheduled 2028-02-16 DTAP/TDAP/TD VACCINES [facility] 00:00:00 (3 - Td or Tdap) [facility] [code = DTAP/TDAP/TD VACCINES (3 - Td or Tdap)] Future Scheduled 2028-02-16 DTAP/TDAP/TD VACCINES [facility] 00:00:00 (3 - Td or Tdap) [facility] [code = DTAP/TDAP/TD VACCINES (3 - Td or Tdap)] Future Scheduled 2028-02-16 DTAP/TDAP/TD VACCINES [facility] 00:00:00 (3 - Td or Tdap) [facility] [code = DTAP/TDAP/TD VACCINES (3 - Td or Tdap)] Future Scheduled 2028-02-16 DTAP/TDAP/TD VACCINES [facility] 00:00:00 (3 - Td or Tdap) [facility] [code = DTAP/TDAP/TD VACCINES (3 - Td or Tdap)] Future Scheduled 2028-02-16 DTAP/TDAP/TD VACCINES [facility] 00:00:00 (3 - Td or Tdap) [facility] [code = DTAP/TDAP/TD VACCINES (3 - Td or Tdap)] Future Scheduled 2022-11-[address] [facility] 00:00:00 (Season Ended) [code Medical Center = Influenza Vaccine (Season Ended)] Future Scheduled 2022-11-[address] [facility] 00:00:00 (Season Ended) [code Medical Center = INFLUENZA VACCINE (Season Ended)] Future Scheduled 2022-11-[address] [facility] 00:00:00 (Season Ended) [code Medical Center = INFLUENZA VACCINE (Season Ended)] Future Scheduled 2022-11-[address] [facility] 00:00:00 (#1) [code = Medical Center Influenza Vaccine (#1)] Future Scheduled 2022-08-24 [facility] 04[facility]45[facility]42 malignant neoplasm of cervix (procedure) [code = 014133983] Future Scheduled 2022-08-24 INFLUENZA VACCINE [facility] 04:45:42 [code = INFLUENZA VACCINE] Future Scheduled 2022-08-24 COVID-19 [facility]INE [facility] 04:[facility]42 [code = COVID-19 VACCINE (#1)] Future Scheduled 2022-06-08 [facility] 13:29:23 malignant neoplasm of cervix (procedure) [code = 505182218] Future Scheduled 2022-06-08 [facility]ENZA VACCINE [facility] 13:29:23 [code = INFLUENZA VACCINE] Future Scheduled 2022-06-08 [facility] [code = COVID-19 VACCINE (#1)] Future Scheduled 2022-06-08 [facility] 13:29:23 malignant neoplasm of cervix (procedure) [code = 756245096] Future Scheduled 2022-06-08 IN[facility]ENZA VACCINE [facility] 13:29:23 [code = INFLUENZA VACCINE] Future Scheduled 2022-06-08 COVID[facility]19 [facility] 13:29:23 [code = COVID-19 VACCINE (#1)] Future Scheduled 2022-06-08 [facility] 13:29:23 malignant neoplasm of cervix (procedure) [code = 621997966] Future Scheduled 2022-06-08 INFLUENZA VACCINE [facility] 13:29:23 [code = INFLUENZA VACCINE] Future Scheduled 2022-06-08 COVID-19 [facility]INE [facility] 13:29:23 [code = COVID-19 VACCINE (#1)] Future Scheduled 2022-03-[address] [...] (12+)] Future Scheduled 2022-03-02 COVID-19 [facility]ACCINE [facility] 16:47:47 [code = COVID-19 VACCINE (#1)] Future Scheduled 2022-03-02 [facility] 16:47:47 malignant neoplasm of cervix (procedure) [code = 636875036] Future Scheduled 2022-03-02 INFLUENZA VACCINE [facility] 16:47:47 [code = INFLUENZA VACCINE] Future Scheduled 2022-01-12 HE[facility]IS B [facility] 19:54:31 (1 of 3 - 3-dose series) [code = HEPATITIS B VACCINES (1 of 3 - 3-dose series)] Future Scheduled 2022-01-12 COVID-19 [facility]INE [facility] 19:54:31 [code = COVID-19 VACCINE (#1)] Future Scheduled 2022-01-12 [facility] 19:54:31 Chlamydia trachomatis (procedure) [code = 830577432] Future Scheduled 2022-01-12 [facility] 19:54:31 (procedure) [code = 269789509] Future Scheduled 2022-01-12 [facility] 19:54:31 malignant neoplasm of cervix (procedure) [code = 418440233] Future Scheduled 2022-01-12 INFLUENZA VACCINE [facility] 19:54:31 [code = INFLUENZA VACCINE] Future Scheduled 2021-11-09 COVID-19 [facility]INE [facility] 06:02:25 [code = COVID-19 VACCINE (#1)] Future Scheduled 2021-11-09 [facility] 06:02:25 Chlamydia trachomatis (procedure) [code = 538185430] Future Scheduled 2021-11-09 [facility] 06:02:25 (procedure) [code = 240105507] Future Scheduled 2021-11-09 [facility] 06:02:25 malignant neoplasm of cervix (procedure) [code = 014679207] Future Scheduled 2021-11-09 INFLUENZA VACCINE Method [facility] Test 06:02:25 [code = INFLUENZA VACCINE] Future Scheduled 2021-11-09 HEPATITIS B VACCINES Met [facility] Test 06:02:25 (1 of 3 - 3-dose series) [code = HEPATITIS B VACCINES (1 of 3 - 3-dose series)] Future Scheduled 2021-11-09 COVID-19 VACCINE (#1) [facility] Test 06:02:25 [code = COVID-19 VACCINE (#1)] Future Scheduled 2021-11-09 Screening for [facility] Test 06:02:25 Chlamydia trachomatis (procedure) [code = 479706610] Future Scheduled 2021-11-09 Hepatitis C screening [facility] Test 06:02:25 (procedure) [code = 942283188] Future Scheduled 2021-11-09 Screening for [facility] Test 06:02:25 malignant neoplasm of cervix (procedure) [code = 390887126] Future Scheduled 2021-11-09 INFLUENZA VACCINE Method [facility] Test 06:02:25 [code = INFLUENZA VACCINE] Future Scheduled 2021-11-09 HEPATITIS B VACCINES Met [facility] Test 06:02:25 (1 of 3 - [...] Medica l Center cervix (procedure) [code = 708999768] Future Scheduled [address] [facility] 00:[facility]:00 malignant neoplasm of [facility] cervix (procedure) [code = 387213641] Future Scheduled [address] [facility] Test 00:00:00 malignant ne[facility] cervix (procedure) [code = 543108499] Future Scheduled [address] [facility] Test 00:00:00 malignant neoplasm of [facility] cervix (procedure) [code = 713787040] Future Scheduled [address] [facility] Test 00:00:00 malignant neoplasm of [facility] cervix (procedure) [code = 995674941] Future Scheduled [address] [facility] Test 00:00:00 malignant neoplasm of [facility] cervix (procedure) [code = 405651444] Future Scheduled [address] [facility] Test 00:00:00 malignant neoplasm of [facility] cervix (procedure) [code = 162335966] Future Scheduled [address] [facility] Test 00:00:00 malignant neoplasm of [facility] Center cervix (procedure) [code = 504861856] Future Scheduled [address] [facility] Test 00:00:00 (procedure) [code = [facility] 18343746] Future Scheduled [address] [facility] Test 00:00:00 (procedure) [code = [facility] Center 49772944] Future Scheduled [address] [facility] Test 00:00:00 (procedure) [code = [facility] 43242735] Future Scheduled [address] [facility] Test 00:00:00 (procedure) [code = [facility] 64270362] Future Scheduled [address] [facility] Test 00:00:00 (procedure) [code = [facility] 70732319] Future Scheduled [address] [facility] Test 00:00:00 (procedure) [code = Medical Center 00450355] Future Scheduled [address] [facility] Test 00:00:00 (procedure) [code = [facility] Center 87327883] Future Scheduled [address] [facility] Test 00:00:00 (procedure) [code = Medical Center 48624641] Future Scheduled 2015 HEPATITIS C SCREENING [facility] [code = 478506204] [facility] malignant neoplasm of cervix (procedure) [code = 236549461] Future Scheduled [facility]INE [facility] [code = INFLUENZA VACCINE] Encounters Start End Encounter Admission Attending Care Care Encounter Source Date/Time Date/Time Type Type Clinicians Facility Department ID 2021-12-[address] [facility] MARGOT [id number] Univers 18:22:19 ity of [facility] 2021-01-07 Emergency [facility] [id number] Univers 07:14:20 ity of [facility] 2021-01-07 Emergency [facility] [id number] Univers 06:42:50 ity of [facility] 2021-01-07 Emergency [facility] [id number] Univers 06:25:23 ity of [facility] 2021-01-07 Emergency [facility] [id number] Univers 03:52:48 ity of [facility] 2021-01-07 Emergency [facility] [id number] Univers 03:25:06 ity of [facility] 2021-01-06 Emergency [facility] [id number] Univers 03:53:51 ity of [facility] 2020-09-21 Inpatient ER TESHA, [facility] [id number] [facility] 19:23:00 JOANNE 2022-09-18 2022-09-18 Outpatient R [facility] [id number] Univers 10:00:00 10:00:00 ity of [facility] 2022-09-11 2022-09-11 Outpatient R [facility] [id number] Univers 10:00:00 10:00:00 ity of [facility] 2022-08-30 2022-08-30 Emergency X NIDIA [facility] ERT [id number] Univers 07:20:00 08:04:00 DARIELA ity of [facility] 2022-08-30 2022-08-30 [facility] 1.2.283.859 [id number] Univers 07:20:00 08:04:00 Dariela GUTIERREZ 350.1.13.10 i ty [facility] 4.2.7.2.686 [facility] [phone] [place] [address] [address] 2022-08-22 2022-08-[address] [facility] 1.2.840.114 [id number] Univers 00:00:00 00:00:00 Alma C TRANSPLANT COORDINATOR 350.1.13.10 ity of REGIONAL 4.2.7.2.686 Dwayne as MATERNAL [id number] [facility] & CHILD [address] [place] [address] 2022-08-15 2022-08-15 Abstract [facility] 1.2.840.114 [id number] [facility] 00:00:00 00:00:00 Alma C TRANSPLANT COORDINATOR 350.1.13.10 ity of [facility] 4.2.7.2.686 Dwayne as MATERNAL [id number] [facility] & CHILD [address] [place] [address] 2022-08-14 2022-08-14 Outpatient P ZEN CORREA [facility] [id number] Univers 10:45:00 12:01:26 ZEN CORREA ity [facility] 2022-08-14 2022-08-14 [facility] 1.2.840. 114 [id number] Univers 11:30:00 11:47:20 Visit Akosua Edouard TRANSPLANT COORDINATOR 350.1.13.10 ity of [facility] 4.2.7.2.686 Dwayne as MATERNAL [id number] [facility] & CHILD [address] [place] [address] 2022-08-14 2022-08-14 [facility] 1.2. 840.114 [id number] Univers 10:45:00 11:30:00 Visit Zen Correa TRANSPLANT COORDINATOR 350.1.13.10 ity of [facility] 4.2.7.2.686 Dwayne as MATERNAL [phone] [facility] & CHILD [address] [place] [address] 2022-08-07 2022-08-07 Outpatient R IRMA [facility] [id number] Univers 16:00:00 16:01:08 ALMA ity o f [facility] 2022-08-07 2022-08-07 Routine [facility] 1.2.371.356 [id number] Univers 16:00:00 16:01:08 Alma C TRANSPLANT COORDINATOR 350.1.13.10 ity of Visit REGIONAL 4.2.7.2.686 Dwayne as MATERNAL [id number] [facility] ical & CHILD [address] [place] [address] 2022-07-29 2022-07-29 Abstract [facility] 1.2.840.114 [id number] Univers 00:00:00 00:00:00 Mallory TRANSPLANT COORDINATOR 350.1.13.10 it y of [facility] 4.2.7.2.686 Dwayne as MATERNAL [id number] [facility] & CHILD [address] [place] [address] 2022-07-29 2022-07-29 Abstract [facility] 1.2.840.114 [id number] Univers 00:00:00 00:00:00 Mallory TRANSPLANT COORDINATOR 350.1.13.10 it y of [facility] 4.2.7.2.686 Dwayne as MATERNAL [id number] [facility] & CHILD [address] [place] [address] 2022-07-28 2022-07-28 Outpatient R CHIQUIS KATE [facility] [id number] Univers 12:00:00 12:00:00 CHIQUIS KATE yolie [facility] 2022-07-28 2022-07-28 Foot Orthopedist 1, Suzie[facility] Room [facility] 1.2. 840.114 [id number] Univers 11:15:00 11:19:29 Visit Chiquis Kate TRANSPLANT COORDINATOR 350.1.13.10 ity of REGIONAL 4.2.7.2.686 Dwayne as MATERNAL [phone] [facility] ical & CHILD [address] [facility] 2022-07-15 2022-07-15 Emergency X NIDIA [facility] ERT [id number] Univers 13:43:00 16:41:00 DARIELA hammonds [facility] 2022-07-15 2022-07-15 [facility] 1.2.798.565 [id number] Univers 13:43:00 16:41:00 Dariela GUTIERREZ 350.1.13.10 i ty [facility] 4.2.7.2.686 [place] [facility] [id number] [address] 2022-07-15 2022-07-15 Telephone Giuliano [facility] 1.2.840.114 1 [id number] Univers 00:00:00 00:00:00 Radha A TRANSPLANT COORDINATOR 350.1.13.10 i ty of REGIONAL 4.2.7.2.686 Dwayne as MATERNAL [id number] [facility] & [address] 2022-07-08 2022-07-08 [id number] Univers 15:30:00 16:17:39 RADHA [facility] 2022-07-08 2022-07-08 [facility] 1.2.840.114 [id number] Univers 15:30:00 16:17:39 Radha A TRANSPLANT COORDINATOR 350.1.13.10 ity of Visit REGIONAL 4.2.7.2.686 Dwayne as MATERNAL [id number] [facility] & [address] 2022-07-08 2022-07-08 [facility] [id number] Univers 15:30:00 15:30:00 [facility] 2022-07-08 2022-07-08 Letter [facility] 1.2.840.114 [id number] Univers 00:00:00 00:00:00 (Out) Radha Kel TRANSPLANT COORDINATOR 350.1.13.10 i ty of REGIONAL 4.2.7.2.686 Dwayne as MATERNAL [id number] [facility] & CHILD [address] [place] [address] 2022-07-03 2022-07-03 [facility] [id number] Univers 11:00:00 11:00:00 RADHA [facility] 2022-06-24 2022-06-24 Telephone [facility] 1.2.840.114 [id number] Univers 00:00:00 00:00:00 Alma Estevez TRANSPLANT COORDINATOR 350.1.13.10 ity of REGIONAL 4.2.7.2.686 Dwayne as MATERNAL [id number] [facility] & CHILD [address] [place] [address] 2022-06-23 2022-06-23 Telemedici Faculty, Reddy [facility] 1.2.840.114 [id number] Univers 15:30:00 16:00:00 ne Visit Seth Kay TRANSPLANT COORDINATOR 350.1.13. 10 ity of REGIONAL 4.2.7.2.686 Dwayne as MATERNAL [id number] [facility] & CHILD [address] [place] [address] 2022-06-23 2022-06-23 Outpatient R NIESHA [facility] [id number] Univers 15:30:00 15:30:00 SETH ity [facility] 2022-06-19 2022-06-19 Telephone [facility] 1.2.757.794 [id number] Univers 00:00:00 00:00:00 Mallory TRANSPLANT COORDINATOR 350.1.13.10 it y of REGIONAL 4.2.7.2.686 Dwayne as MATERNAL [id number] [facility] & CHILD [address] [place] [address] 2022-06-18 2022-06-18 Telephone [facility] 1.2.022.319 [id number] Univers 00:00:00 00:00:00 Mallory TRANSPLANT COORDINATOR 350.1.13.10 it y of REGIONAL 4.2.7.2.686 Dwayne as MATERNAL [id number] [address] 2022-06-17 2022-06-17 Outpatient R IRMA [facility] [id number] Univers 14:45:00 15:19:39 ALMA garciay o f [facility] 2022-06-17 2022-06-17 Initial [facility] 1.2.004.394 [id number] Univers 14:45:00 15:19:39 Alma Estevez TRANSPLANT COORDINATOR 350.1.13.10 ity of Visit REGIONAL 4..7.2.686 Dwayne as MATERNAL [id number] [facility] & CHILD [address] [place] [address] 2022-06-17 2022-06-17 Orders Doctor GREGORY 1.2.840.114 [id number] Univers 00:00:00 00:00:00 Only Unassigned, PARUL 350.1.13.10 ity of [place] [facility] 4.2.7.2.686 Dwayne as [id number] [facility] [address] 2022-04-21 2022-04-21 Emergency X ARIZMENDI, [facility] ERT [id number] Univers 20:35:00 23:49:00 KIARRA [facility] 2022-04-21 2022-04-21 Emergency [facility] 1.2.840.114 [id number] Univers 20:35:00 23:49:00 Kiarra GAYLORD 350.1.13.10 i ty [facility] 4.2.7.2.686 [place] [id number] [facility] [address] 2022-03-28 2022-03-28 Outpatient Bryn NOBLES [facility] [id number] Univers 13:00:00 13:00:00 [facility] 2022-03-18 2022-03-18 Outpatient Bryn RHOADES [facility] [id number] Univers 14:15:00 15:00:29 MAU [facility] 2022-03-18 2022-03-18 Nurse Nurse, [facility] 1.2.840.114 [id number] Univers 14:15:00 14:35:00 Visit Unknown, [facility].13.10 [facility] 4.2.7.2.686 Dwayne as JORGE?BLEA [phone] [address] MEDICAL OFFICE BUILDING 2022-03-04 2022-03-04 Outpatient Bryn NOBLES [facility] [id number] Univers 11:00:00 11:52:45 RADHA [facility] 2022-03-04 2022-03-04 Routine Provider, Ebmer Temp [facility] 1 .2.840.114 [id number] Univers 11:00:00 11:52:45 Radha Nobles TRANSPLANT COORDINATOR 350.1.13. 10 ity of Visit [facility] 4.2.7.2.686 Dwayne as MATERNAL [id number] Med ical & CHILD [address] [place] [address] 2022-02-20 2022-02-[address] [facility] 1.2.840.114 [id number] Univers 00:00:00 00:00:00 Management Dennys GUTIERREZ 350.1.13.10 ity [facility] 4.2.7.2.686 [facility] [id number] [facility] [address] 2022-02-17 2022-02-17 Outpatient R [facility] [id number] Univers 15:00:00 15:00:00 ity of [facility] 2022-02-16 2022-02-16 Emergency X [facility] ERT [id number] Univers 12:01:00 17:40:00 RAVEN [facility] 2022-02-16 2022-02-16 Emergency [facility] 1.2.237.673 [id number] Univers 12:01:00 17:40:00 Raven GUTIERREZ 350.1.13.10 i ty [facility] 4.2.7.2.686 [facility] [phone] [facility] [address] 2022-02-10 2022-02-12 Inpatient X CHIQUIS KATE [facility] MARGOT 1 [id number] Univers 15:37:00 16:21:00 CHIQUIS KATE [facility] 2022-02-10 2022-02-12 Hospital Eladia Conklin 1 .2.840.114 [id number] Univers 15:37:00 16:21:00 Encounter Chiquis Kate 350.1.13.10 ity [place] [address]..2.686 Dwayne as [id number] [facility] [address] 2022-02-11 2022-02-11 Anesthesia Nory Jiménez 1.2.840 .114 [id number] Univers 00:25:00 12:19:00 Event Martha Agarwal 350.1.13.10 ity [facility] 42.7.2.686 Dwayne as [id number] [facility] [address] 2022-02-11 2022-02-11 [facility] [id number] Univers 10:15:00 10:15:00 RADHA [facility] 2022-02-10 2022-02-10 Telephone [facility] 1.2.840.114 [id number] Univers 00:00:00 00:00:00 Alma Estevez TRANSPLANT COORDINATOR 350.1.13.10 ity of REGIONAL 4.2.7.2.686 Dwayne as MATERNAL [id number] [facility] & CHILD [address] [place] [address] 2022-02-07 2022-02-07 Orders Doctor COLT 1.2.840.114 [id number] Univers 00:00:00 00:00:00 Only Unassigned, PARUL 350.1.13.10 ity of [place] [facility] 4.2.7.2.686 Dwayne as [id number] [address] 2022-02-06 2022-02-06 Outpatient Bryn SINGH [facility] [id number] Univers 13:30:00 14:32:26 KEVIN [facility] 2022-02-06 2022-02-06 Routine Risk, Kbz-Znoye-Fy/High [facility] 1. 2.840.114 [id number] Univers 13:30:00 14:32:26 Kevin Singh TRANSPLANT COORDINATOR 350.1.13.10 ity of Visit REGIONAL 4.2.7.2.686 Dwayne as MATERNAL [id number] [address] 2022-02-03 2022-02-03 Outpatient R IRMA [facility] [id number] Univers 15:15:00 15:34:29 ALMA garciay o f [facility] 2022-02-03 2022-02-03 [facility] 1.2.300.341 [id number] Univers 15:15:00 15:34:29 Alma Estevez TRANSPLANT COORDINATOR 350.1.13.10 ity of Visit REGIONAL 4.2.7.2.686 Dwayne as MATERNAL [id number] [address] 2022-01-30 2022-01-30 Outpatient González LARA [facility] MARGOT [id number] Univers 15:44:00 17:50:00 DENNYS [facility] 2022-01-30 2022-01-30 Emergency Areli Patel [facility] 1.2.8 40.114 [id number] Univers 15:44:00 17:50:00 Dennys Lara 350.1.13.10 ity of [place] 4.2.7.2.686 [id number] [address] 2022-01-29 2022-01-29 Outpatient R GIULIANO [facility] [id number] Univers 14:45:00 15:15:50 RADHA ity of [facility] 2022-01-29 2022-01-29 Routine Provider, Reddy-Otoniel Kate [facility] 1 .2.840.114 [id number] Univers 14:45:00 15:15:50 Radha Nobles TRANSPLANT COORDINATOR 350.1.13. 10 ity of Visit REGIONAL 4.2.7.2.686 Dwayne as MATERNAL [id number] Med ical & CHILD [address] [place] [address] 2022-01-27 2022-01-27 Outpatient R AKINSIPE, [facility] [id number] Univers 13:00:00 14:16:53 ALMA ity o f [facility] 2022-01-27 2022-01-27 Routine Florindauare, [facility] 1.2.053.343 [id number] Univers 13:00:00 14:16:53 Alma C TRANSPLANT COORDINATOR 350.1.13.10 ity of Visit REGIONAL 4.2.7.2.686 Dwayne as MATERNAL [id number] [facility] ical & CHILD [address] [place] [address] 2022 2022 Outpatient R AKINSIPE, [facility] [id number] Univers 15:00:00 15:51:27 ALMA ity o f [facility] 2022 2022 Routine Akinlissy, [facility] 1.2.920.919 [id number] Univers 15:00:00 15:51:27 Alma C TRANSPLANT COORDINATOR 350.1.13.10 ity of Visit REGIONAL 4.2.7.2.686 Dwayne as MATERNAL [id number] Med ical & CHILD [address] [place] [address] 2022-01-21 2022-01-21 [facility] [id number] Univers 10:30:00 10:50:45 RADHA [facility] 2022-01-21 2022-01-21 Routine Provider, [facility] 1 .2.840.114 [id number] Univers 10:30:00 10:50:45 Radha Nobles TRANSPLANT COORDINATOR 350.1.13. 10 ity of Visit REGIONAL 4.2.7.2.686 Dwayne as MATERNAL [id number] [facility] & CHILD [address] [place] [address] 2022-01-16 2022-01-16 Outpatient Bryn SHARMA [facility] [id number] Univers 13:30:00 14:01:20 AMY hammonds [facility] 2022-01-16 2022-01-16 Routine Risk, Wvi-Awfhr-Av/High [facility] 1. 2.840.114 [id number] Univers 13:30:00 14:01:20 Amy Sharma TRANSPLANT COORDINATOR 350.1.13.10 ity of Visit REGIONAL 4.2.7.2.686 Dwayne as MATERNAL [id number] [facility] & [address] 2022-01-15 2022-01-[address] [facility] 1.2.840.114 [id number] Univers 00:00:00 00:00:00 Alma Estevez TRANSPLANT COORDINATOR 350.1.13.10 ity of REGIONAL 4.2.7.2.686 Dwayne as MATERNAL [id number] [facility] CHILD [address] [place] [address] 2022-01-13 2022-01-13 Outpatient Bryn NOBLES [facility] [id number] Univers 11:00:00 15:39:45 [facility] 2022-01-13 2022-01-13 Routine Provider, Luciochradha [facility] 1 .2.840.114 [id number] Univers 11:00:00 11:15:00 Radha Nobles TRANSPLANT COORDINATOR 350.1.13. 10 ity of Visit REGIONAL 4.2.7.2.686 Dwayne as MATERNAL [id number] [facility] & CHILD [address] [place] [address] 2022-01-09 2022-01-09 Foot Orthopedist Jenn [facility] 1.2.8 40.114 [id number] Univers 15:00:00 15:15:00 Visit Vira CarlosgaviotaNeal joiner GAY[place]ORD 350.1 .13.10 ity of [place] 4.2.7.2.686 [place] [id number] Pr dical [address] 2022-01-09 2022-01-09 Outpatient R ALFREDO [facility] [id number] Univers 13:45:00 14:34:17 KEVIN ity [facility] 2022-01-09 2022-01-09 Routine Risk, Hid-Zzqlj-Ma/High [facility] 1. 2.840.114 [id number] Univers 13:45:00 14:34:17 AkinAlma nair TRANSPLANT COORDINATOR 350.1.13 .10 ity of Visit Kevin Singh [facility] 4.2.7.2.686 [place] MATERNAL [id number] [facility] & CHILD [address] [place] [address] 2022-01-07 2022-01-07 Telephone Risk, [facility] 1.2.743.358 [id number] Univers 00:00:00 00:00:00 Ang-Rmchp-N TRANSPLANT COORDINATOR 350.1.13.10 ity of p/High REGIONAL 4.2.7.2.686 Dwayne as MATERNAL [id number] [facility] & CHILD [address] [place] [address] 2022-01-06 2022-01-06 Outpatient R VIRA [facility] [id number] Univers 15:30:00 16:45:47 ROLY it y of NEAL Pickett [facility] 2022-01-06 2022-01-06 Telemedici Faculty, Ang Rmchp [facility] 1.2.840.114 [id number] Univers 15:30:00 16:45:47 ne Visit Vira CarloslindaNeal TRANSPLANT COORDINATOR 350.1 .13.10 ity of REGIONAL 4.2.7.2.686 Dwayne as MATERNAL [phone] [facility] CHILD [address] [place] [address] 2022-01-06 2022-01-06 Routine Akinlissy, Alma Estevez [facility] 1.2.8 40.114 [id number] Univers 14:45:00 15:33:24 Trever Katz TRANSPLANT COORDINATOR 350.1.13.1 0 ity of Visit REGIONAL 4.2.7.2.686 Dwayne as MATERNAL [id number] [facility] CHILD [address] [place] [address] 2022-01-03 2022-01-03 Orders Doctor COLT 1.2.840.114 [id number] Univers 00:00:00 00:00:00 Only Unassigned, PARUL 350.1.13.10 ity of [place] [facility] 4.2.7.2.686 Dwayne as [id number] [address] 2022-01-02 2022-01-02 Outpatient R ALFREDO VASONJA [facility] [id number] Univers 13:30:00 15:00:16 KEVIN ity [facility] 2022-01-02 2022-01-02 Routine Risk, Jmf-Wzpth-Ok/High [facility] 1. 2.840.114 [id number] Univers 13:30:00 15:00:16 Kevin Singh TRANSPLANT COORDINATOR 350.1.13.10 ity of Visit REGIONAL 4.2.7.2.686 Dwayne as MATERNAL [id number] [facility] & CHILD [address] [place] [address] 2022-01-02 2022-01-02 Telephone Florindaaure, [facility] 1.2.840.114 [id number] Univers 00:00:00 00:00:00 Alma C TRANSPLANT COORDINATOR 350.1.13.10 ity of REGIONAL 4.2.7.2.686 Dwayne as MATERNAL [id number] [facility] CHILD [address] [place] [address] 2021-12-30 2021-12-30 Routine A[place]ipe, [facility] [id number] Univers 15:30:00 15:45:00 Alma C TRANSPLANT COORDINATOR [id number] ity of Visit REGIONAL [id number] Dwayne as MATERNAL [phone] [facility] & CHILD [address] [place] [address] 2021-12-30 2021-12-30 [facility] [id number] Univers 15:30:00 15:30:00 ALMA ity o f [facility] 2021-12-17 2021-12-17 Outpatient R [facility] [id number] Univers 14:00:00 15:10:22 ALMA ity o f [facility] 2021-12-17 2021-12-17 Routine [facility] [id number] Univers 14:00:00 15:10:22 Alma C TRANSPLANT COORDINATOR [id number] ity of Visit REGIONAL [id number] Dwayne as MATERNAL [phone] [facility] & CHILD [address] [place] [address] 2021-12-13 2021-12-13 [facility] [id number] Univers 09:15:00 09:15:00 ALMANAMRATA hammonds o [facility] 2021-12-10 2021-12-10 Telephone [facility] [id number] Univers 00:00:00 00:00:00 Alma C TRANSPLANT COORDINATOR [id number] ity of REGIONAL [id number] Dwayne as MATERNAL [phone] [facility] & CHILD [address] [place] [address] 2021-12-05 2021-12-05 Abstract [facility] [id number] Univers 00:00:00 00:00:00 Alma C TRANSPLANT COORDINATOR [id number] ity of REGIONAL [id number] Dwayne as MATERNAL [phone] [facility] & CHILD [address] [place] [address] 2021-12-01 2021-12-01 Outpatient P ALICIA [facility] MARGOT [id number] Univers 14:52:00 18:22:00 LUKE ity of [facility] 2021-12-01 2021-12-01 [facility] COLT Fish 1.2.074.636 [id number] Univers 14:52:00 18:22:00 Encounter Luke CAT 350.1.13.10 ity [facility] 4.2.7.2.686 Dwayne as [phone] [facility] [address] 2021-11-30 2021-11-30 Emergency X [facility] ERT [id number] Univers 11:50:00 12:13:00 ARELI ity [facility] 2021-11-30 2021-11-30 Emergency [facility] 1.2.840.114 [id number] Univers 11:50:00 12:13:00 Areli Madsen [place] 350.1.13.10 ity [facility] 4.2.7.2.686 [facility] [id number] [facility] [address] 2021-11-30 2021-11-30 Letter COLT Wyman 1.2.840.114 [id number] Univers 00:00:00 00:00:00 (Out) Vijaya CAT 350.1.13.10 it y [facility] 4.2.7.2.686 Dwayne as [phone] [facility] [address] 2021-11-29 2021-11-29 Foot Orthopedist [facility] 1.2 .840.114 [id number] Univers 15:15:00 16:00:00 Visit Trever Katz TRANSPLANT COORDINATOR 350.1.13.10 ity [facility] 4.2.7.2.686 [place] MATERNAL [phone] Med ical & CHILD [address] [place] [address] 2021-11-29 2021-11-29 Outpatient P [facility] [id number] Univers 15:15:00 15:15:00 ity of [facility] 2021-11-29 2021-11-29 Outpatient R GIANNA [facility] [id number] Univers 07:45:00 08:28:49 TREVER hammonds o f [facility] 2021-11-29 2021-11-[address] [facility] 1.2.840.114 [id number] Univers 07:45:00 08:28:49 Roshunda R TRANSPLANT COORDINATOR 350.1.13.10 ity of Visit REGIONAL 4.2.7.2.686 Dwayne as MATERNAL [phone] [facility] & CHILD [address] [place] [address] 2021-11-28 2021-11-28 [facility] [id number] Univers 14:45:00 14:45:00 ALMA ity o f [facility] 2021-11-19 2021-11-19 Telephone [facility] 1.2.840.114 [id number] Univers 00:00:00 00:00:00 Alma C TRANSPLANT COORDINATOR 350.1.13.10 ity of REGIONAL 4.2.7.2.686 Dwayne as MATERNAL [phone] [facility] & CHILD [address] [place] [address] 2021-11-12 2021-11-12 Routine [facility] 1.2.570.502 [id number] Univers 14:45:00 15:00:00 Alma C TRANSPLANT COORDINATOR 350.1.13.10 ity of Visit REGIONAL 4.2.7.2.686 Dwayne as MATERNAL [id number] [facility] & CHILD [address] [place] [address] 2021-11-12 2021-11-12 Outpatient R [facility] [id number] Univers 14:45:00 14:45:00 ALMA hammonds o kari [facility] 2021-11-04 2021-11-04 Telemedici Faculty, [facility] 1.2.840.114 [id number] Univers 15:00:00 15:30:00 ne Visit Anton Renteria TRANSPLANT COORDINATOR 350.1.13.10 ity of REGIONAL 4.2.7.2.686 [place]wayne as MATERNAL [id number] [facility] & CHILD [address] [place] [address] 2021-11-04 2021-11-04 Outpatient P DEXTER [facility] [id number] Univers 15:00:00 15:00:00 ANTON hammonds o f [facility] 2021-10-28 2021-10-28 Outpatient P [facility] [id number] Univers 15:00:00 15:00:[facility] 2021-10-22 2021-10-22 Abstract Irma, [facility] 1.2.840.114 [id number] Univers 00:00:00 00:00:00 Alma Estevez TRANSPLANT COORDINATOR 350.1.13.10 ity of REGIONAL 4.2.7.2.686 Dwayne as MATERNAL [phone] [facility] & CHILD [address] [place] [address] 2021-10-17 2021-10-17 Foot Orthopedist 1, Suzie-[facility] Room [facility] 1.2. 840.114 [id number] Univers 14:15:00 16:36:19 Visit Abena Patel TRANSPLANT COORDINATOR 350.1.13.10 ity of REGIONAL 4.2.7.2.686 Dwayne as MATERNAL [phone] [facility] & CHILD [address] [place] [address] 2021-10-17 2021-10-17 [facility] [id number] Univers 14:15:00 14:15:00 ABENA [facility] 2021-10-15 2021-10-15 Outpatient R AKINSIPE, [facility] [id number] Univers 13:00:00 13:45:11 ALMA hammonds o [facility] 2021-10-15 2021-10-15 Routine Akinsipe, [facility] 1.2.850.634 [id number] Univers 13:00:00 13:45:11 Alma Estevez TRANSPLANT COORDINATOR 350.1.13.10 ity of Visit REGIONAL 4.2.7.2.686 Dwayne as MATERNAL [id number] [facility] & [address] 2021-10-11 2021-10-11 Outpatient P [facility] [id number] Univers 14:15:00 14:15:00 [facility] 2021-10-07 2021-10-07 Outpatient R AKINJAQUANPE, [facility] [id number] Univers 12:45:00 13:37:44 ALMA hammonds o f [facility] 2021-10-07 2021-10-07 Routine Akinsipe, [facility] 1.2.025.146 [id number] Univers 12:45:00 13:37:44 Alma C TRANSPLANT COORDINATOR 350.1.13.10 ity of Visit REGIONAL 4.2.7.2.686 Dwayne as MATERNAL [id number] [facility] & CHILD [address] [place] [address] 2021-10-07 2021-10-07 Orders Doctor COLT 1.2.840.114 [id number] Univers 00:00:00 00:00:00 Only Unassigned, PARUL 350.1.13.10 ity of [place] 4.2.7.2.686 Dwayne as [id number] [address] 2021-10-03 2021-10-03 Outpatient R [facility] [id number] Univers 16:00:00 16:00:00 ALMA ity o f [facility] 2021-09-19 2021-09-19 Orders Doctor COLT 1.2.840.114 [id number] Univers 00:00:00 00:00:00 Only Unassigned, PARUL 350.1.13.10 ity of [place] [facility] 4.2.7.2.686 Dwayne as [phone] [address] 2021-09-05 2021-09-05 Outpatient R [facility] [id number] Univers 15:30:00 16:02:29 ALMA ity o f [facility] 2021-09-05 2021-09-05 Routine [facility] 1.2.613.603 [id number] Univers 15:30:00 16:02:29 Alma C TRANSPLANT COORDINATOR 350.1.13.10 ity of Visit REGIONAL 4.2.7.2.686 Dwayne as MATERNAL [phone] [facility] & CHILD [address] [place] [address] 2021-09-02 2021-09-02 Orders Doctor COLT 1.2.840.114 [id number] Univers 00:00:00 00:00:00 Only Unassigned, PARUL 350.1.13.10 ity of [facility] 4.2.7.2.686 Dwayne as [phone] [address] 2021-08-19 2021-08-19 [facility] [id number] Univers 15:00:00 15:00:00 [facility] 2021-08-19 2021-08-19 Foot [facility] Lab[facility] 1.2.840. 114 [id number] Univers 15:00:00 15:00:00 Visit Luke Fish TRANSPLANT COORDINATOR 350.1.13.10 ity of REGIONAL 4.2.7.2.686 Dwayne as MATERNAL [phone] [facility] ical & CHILD [address] [place] [address] 2021-08-19 2021-08-19 Foot Orthopedist 1, Suzie[facility] Room [facility] 1.2. 840.114 [id number] Univers 14:15:00 14:51:59 Visit Luke Fish TRANSPLANT COORDINATOR 350.1.13.10 ity of REGIONAL 4.2.7.2.686 Dwayne as MATERNAL [id number] [facility] & CHILD [address] [place] [address] 2021-08-19 2021-08-19 Outpatient P [facility] [id number] Univers 14:15:00 14:15:00 ity of [facility] 2021-08-19 2021-08-19 Abstract [facility] 1.2.840.114 [id number] Univers 00:00:00 00:00:00 Alma C TRANSPLANT COORDINATOR 350.1.13.10 ity of REGIONAL 4.2.7.2.686 Dwayne as MATERNAL [phone] [facility] & CHILD [address] [place] [address] 2021-08-08 2021-08-08 Outpatient R AKINLISSY [facility] [id number] Univers 15:30:00 16:15:10 ALMA ity o f [facility] 2021-08-08 2021-08-08 Routine [facility] 1.2.472.074 [id number] Univers 15:30:00 16:15:10 Alma C TRANSPLANT COORDINATOR 350.1.13.10 ity of Visit REGIONAL 4.2.7.2.686 Dwayne as MATERNAL [phone] [facility] & CHILD [address] [place] [address] 2021-08-08 2021-08-08 Outpatient R IRMA [facility] [id number] Univers 15:30:00 16:15:10 ALMA radhayolie o kari [facility] 2021-08-08 2021-08-08 Outpatient R IRMA [facility] [id number] Univers 15:30:00 15:30:00 ALMA radhayolie o [facility] 2021-07-25 2021-07-25 Telephone [facility] 1.2.840.114 [id number] Univers 00:00:00 00:00:00 Alma Estevez TRANSPLANT COORDINATOR 350.1.13.10 ity of REGIONAL 4.2.7.2.686 Dwayne as MATERNAL [id number] Med ical & CHILD [address] [place] [address] 2021-07-19 2021-07-19 Orders Doctor COLT 1.2.840.114 [id number] Univers 00:00:00 00:00:00 Only Unassigned, PARUL 350.1.13.10 ity of [place] [facility] 4.2.7.2.686 Dwayne as [phone] [address] 2021-07-18 2021-07-18 Outpatient R ZACHARY [facility] [id number] Univers 13:15:00 13:52:24 AMY hammonds [facility] 2021-07-18 2021-07-18 Routine Risk, Pmt-Hhduw-Lh/High [facility] 1. 2.840.114 [id number] Univers 13:15:00 13:52:24 Amy Sharma TRANSPLANT COORDINATOR 350.1.13.10 ity of Visit [facility] 4.2.7.2.686 Dwayne as MATERNAL [phone] [facility] [address] [place] [address] 2021-07-11 2021-07-11 Outpatient R IRMA [facility] [id number] Univers 15:00:00 16:21:03 ALMA hammonds o kari [facility] 2021-07-11 2021-07-11 Initial [facility] 1.2.065.396 [id number] Univers 15:00:00 16:21:03 Alma Estevez TRANSPLANT COORDINATOR 350.1.13.10 ity of Visit [facility] 4.2.7.2.686 Dwayne as MATERNAL [phone] Med ical & CHILD [address] [place] [address] 2021-07-11 2021-07-11 Outpatient Bryn SOLIS [facility] [id number] Univers 15:00:00 16:21:03 ALMA ity o f [facility] 2021-07-11 2021-07-11 Orders Doctor GREGORY 1.2.840.114 [id number] Univers 00:00:00 00:00:00 Only Unassigned, PARUL 350.1.13.10 ity of [place] [facility] 4.2.7.2.686 Dwayne as [phone] [facility] [address] 2021-05-14 2021-05-14 Outpatient RICHARD DYKES [facility] [id number] Univers 10:40:00 10:40:00 [facility] 2021-04-27 2021-04-27 Letter COLT Wyman 1.2.840.114 [id number] Univers 00:00:00 00:00:00 (Out) Vijaya Whelan PARUL 350.1.13.10 it y of [facility] 4.2.7.2.686 Dwayne as [id number] [facility] [address] 2021-04-26 2021-04-26 Emergency [facility] ERT [id number] Univers 17:29:00 19:21:00 KIARRA hammonds [facility] 2021-04-26 2021-04-26 Emergency [facility] 1.2.840.114 [id number] Univers 17:29:00 19:21:00 Kiarra [place] 350.1.13.10 i ty [facility] [place].2.7.2.[place] [id number] [facility] [address] 2021-04-25 2021-04-25 Outpatient Bryn KENNEY [facility] [id number] Univers 09:45:00 09:54:55 ANGELO hammonds [facility] 2021-04-25 2021-04-[address] [facility] 1.2.558.113 [id number] Univers 09:45:00 09:54:55 Visit [facility] 350.1.13.10 it y of [place] 4.2.7.2.686 Dwayne as JORGE?BLEA [phone] Pr anselmo GALLARDO [address] MEDICAL OFFICE BUILDING 2021-04-18 2021-04-18 Emergency X [facility] ERT [id number] Univers 12:29:00 15:20:00 BERTHA ity of [facility] 2021-04-18 2021-04-[address] [facility] 1.2.334.380 [id number] Univers 12:29:00 15:20:00 Bertha S [place] 350.1.13.10 i ty of [place].2.7.2.[place] [id number] [facility] [address] 2021-04-18 2021-04-18 Orders Doctor COLT 1.2.840.114 [id number] Univers 00:00:00 00:00:00 Only Unassigned, PARUL 350.1.13.10 ity of [place] [facility] 4.2.7.2.686 Dwayne as [id number] [facility] [address] 2021-04-05 2021-04-[address] [facility] 1.2.840.114 [id number] Univers 00:00:00 00:00:00 Alma Estevez TRANSPLANT COORDINATOR 350.1.13.10 ity of [facility] 4.2.7.2.686 Dwayne as MATERNAL [id number] Med ical & CHILD 107 [facility] 2021-03-22 2021-03-22 Reffermin [facility] 1.2.840.114 [id number] Univers 00:00:00 00:00:00 [facility] 350.1.13.10 ity of [place] 4.2.7.2.686 Dwayne as JORGE?BLEA [phone] Pr anselmo GALLARDO [address] MEDICAL OFFICE [facility] 2021-03-12 2021-03-[address] [facility] 1.2.840.114 [id number] Univers 16:00:00 16:44:59 Visit [facility] 350.1.13.10 ity of [place] 4.2.7.2.686 Dwayne as JORGE?BLEA [phone] Pr anselmo GALLARDO [address] [place] [address] 2021-03-12 2021-03-12 Outpatient Bryn URIARTEERICHARD [facility] [id number] Univers 16:00:00 16:44:59 JUSTIN, RICHARD [facility] 2021-03-12 2021-03-12 Outpatient Bryn URIARTEERICHARD [facility] [id number] Univers 16:00:00 16:00:00 JUSTIN, RICHARD [facility] 2021-02-26 2021-02-26 Telephone [facility] 1.2.840.114 [id number] Univers 00:00:00 00:00:00 [facility] 350.1.13.10 ity [facility] 4.2.7.2.686 Dwayne as JORGE?BLEA [phone] [address] 2021-02-17 2021-02-17 Emergency X SALAS [facility] ERT [id number] Univers 18:01:00 22:48:00 [facility] 2021-02-17 2021-02-17 Emergency Raven Goldsmith [facility] 1.2.840. 114 [id number] Univers 18:01:00 22:48:00 Armen Rodriguez [facility] 350.1.13.10 ity of [place]2.7.2.[place] [id number] [facility] [address] [place] [address] 2021-01-11 2021-01-11 Foot Orthopedist Lab, Ang-Rmchp [facility] 1.2.840. 114 [id number] Univers 10:24:34 10:39:34 Visit Abena Patel TRANSPLANT COORDINATOR 350.1.13.10 ity of [facility] 4.2.7.2.686 Dwayne as MATERNAL [id number] Med ical & CHILD [address] [place] [address] 2021-01-11 2021-01-11 Outpatient Bryn PATEL [facility] [id number] Univers 10:30:00 10:30:00 ABENA hammonds [facility] 2020-12-21 2020-12-21 Telephone Justin [facility] 1.2.840.114 [id number] Univers 00:00:00 00:00:00 [facility] 350.1.13.10 ity of [place] 4.2.7.2.686 Dwayne as Jorge?Blea [phone] [address] Office [facility] 2020-12-18 2020-12-18 Outpatient R JORGE [facility] [id number] Univers 09:00:00 09:00:00 ABENA yolie [facility] 2020-11-26 2020-11-26 Office [facility] 1.2.840.114 [id number] Univers 07:48:27 09:58:10 Visit [facility] 350.1.13.10 ity of [place] 4.2.7.2.686 Dwayne as Jorge?Blea [id number] [address] 2020-11-26 2020-11-26 Outpatient R JUSTIN RICHARD [facility] [id number] Univers 08:00:00 08:00:00 RICHARD ANDERSON [facility] 2020-11-26 2020-11-[address] [facility] 1.2.840.114 [id number] Univers 00:00:00 00:00:00 (Out) [facility] 350.1.13.10 ity of [place] 4.2.7.2.686 Dwayne as Jorge?Blea [phone] [address] 2020-11-20 2020-11-20 Outpatient R JUSTINRICHARD Kaur [facility] [id number] Univers 08:00:00 08:00:00 RICHARD ANDERSON [facility] 2020-11-14 2020-11-14 Telephone [facility] 1.2.840.114 [id number] Univers 00:00:00 00:00:00 [facility] 350.1.13.10 ity of [place].7.2.[place] [phone] [address] 2020-11-01 2020-11-01 Outpatient R BRAD [facility] [id number] Univers 14:00:00 14:35:39 LILIANA hammonds [facility] 2020-11-01 2020-11-01 Office [facility] 1.2.840.114 [id number] Univers 13:43:12 14:35:39 Visit Liliana Evelin SPECIALTY 350.1.13.10 ity of [place] 4.2.7.2.686 [place] C[place] AT [id number] Pr anselmo BEDOYA [address] [place] [address] 2020-11-01 2020-11-01 Office [facility] 1.2.840.114 [id number] Univers 13:43:12 14:35:39 Visit Liliana Evelin SPECIALTY 350.1.13.10 ity of CARE 4.2.7.2.686 [facility] CENTER AT [phone] Pr anselmo BEDOYA [address] [place] [address] 2020-11-01 2020-11-01 Outpatient R BRAD [facility] [id number] Univers 14:00:00 14:00:00 LILIANA cassius [facility] 2020-10-19 2020-10-19 Outpatient R RICHARD ANDERSON [facility] [id number] Univers 08:40:00 08:40:00 RICHARD ANDERSON [facility] 2020-10-18 2020-10-18 [facility] 1.2.840.114 [id number] Univers 12:54:28 23:59:00 Encounter Lauryn Gutierrez 350.1.13.10 ity Joby Durhambury 4.2.7.2.686 [place] [id number] [facility] [address] [place] [address] 2020-10-18 2020-10-18 Outpatient R [facility] [id number] Univers 00:00:00 00:00:00 LAURYN pierce [facility] 2020-10-15 2020-10-15 Telephone [facility] 1.2.840.114 [id number] Univers 00:00:00 00:00:00 Abena Camarillo TRANSPLANT COORDINATOR 350.1.13.10 it y of [facility] 4.2.7.2.686 Dwayne as MATERNAL [phone] Med ical & CHILD [address] [place] [address] 2020-10-15 2020-10-15 Telephone [facility] 1.2.840.114 [id number] 00:00:00 00:00:00 Abena N TRANSPLANT COORDINATOR 350.1.13.10 REGIONAL 4.2.7.2.686 MATERNAL [id number] & CHILD [address] [place] [address] 2020-10-12 2020-10-12 Telephone [facility] 1.2.840.114 [id number] Univers 00:00:00 00:00:00 Abena N TRANSPLANT COORDINATOR 350.1.13.10 it y of REGIONAL 4.2.7.2.686 [place] as MATERNAL [id number] Med ical & CHILD [address] [place] [address] 2020-10-12 2020-10-12 Telephone [facility] 1.2.840.114 [id number] 00:00:00 00:00:00 Abena N TRANSPLANT COORDINATOR 350.1.13.10 REGIONAL 4.2.7.2.686 MATERNAL [id number] & CHILD [address] [place] [address] 2020-10-11 2020-10-11 [facility] [id number] Univers 15:15:00 15:15:00 ABENA hammonds [facility] 2020-10-11 2020-10-11 Telephone [facility] 1.2.840.114 [id number] Univers 00:00:00 00:00:00 Abena N TRANSPLANT COORDINATOR 350.1.13.10 it y of REGIONAL 4.2.7.2.686 [place]way[place] as MATERNAL [phone] Med ical & CHILD [address] [place] [address] 2020-10-11 2020-10-11 Telephone [facility] 1.2.840.114 [id number] 00:00:00 00:00:00 Abena N TRANSPLANT COORDINATOR 350.1.13.10 REGIONAL 4.2.7.2.686 MATERNAL [phone] & CHILD [address] [place] [address] 2020-10-09 2020-10-09 Office [facility] 1.2.564.512 [id number] Univers 15:44:08 16:29:53 Visit Abena N TRANSPLANT COORDINATOR 350.1.13.10 it y of [facility] 4.2.7.2.686 Dwayne as MATERNAL [phone] Med ical & CHILD [address] [place] [address] 2020-10-09 2020-10-09 Office [facility] 1.2.314.325 [id number] 15:44:08 16:29:53 Visit Abena Camarillo TRANSPLANT COORDINATOR 350.1.13.10 REGIONAL 4.2.7.2.686 MATERNAL [id number] & CHILD [address] [facility] 2020-10-09 2020-10-09 [facility] [id number] Univers 15:45:00 15:45:00 ABENA hammonds [facility] 2020-10-09 2020-10-09 Orders Doctor COLT 1.2.840.114 [id number] Univers 00:00:00 00:00:00 Only Unassigned, PARUL 350.1.13.10 ity of [place] [facility] 4.2.7.2.686 Dwayne as [id number] [facility] [address] 2020-10-08 2020-10-08 Transition Julio Grant 1.2.840.114 [id number] Univers 00:00:00 00:00:00 of Care Mesfin Guerrero 350.1.13.10 ity of [place].2.[place] [id number] [facility] [address] 2020-10-01 2020-10-05 [facility] Mary Rios 1.2.840.114 [id number] Univers 09:39:00 10:22:00 Encounter S Parul 350.1.13.10 ity of [facility] 4.2.7.2.686 Dwayne as [id number] [facility] [address] 2020-10-01 2020-10-01 Outpatient R MARY RIOS [facility] [id number] Univers 08:30:00 08:30:00 ity of [facility] 2020-10-01 2020-10-01 Orders Doctor COLT 1.2.840.114 [id number] Univers 00:00:00 00:00:00 Only Unassigned, PARUL 350.1.13.10 ity of [facility] 4.2.7.2.686 Dwayne as [phone] [facility] [address] 2020-09-30 2020-09-30 Orders Doctor COLT 1.2.840.114 [id number] Univers 00:00:00 00:00:00 Only Unassigned, PARUL 350.1.13.10 ity of [place] [facility] 4.2.7.2.686 Dwayne as [id number] [facility] [address] 2020-09-28 2020-09-28 Outpatient R JORGE [facility] [id number] Univers 09:30:00 09:30:00 ABENA ity of [facility] 2020-09-26 2020-09-26 Laboratory Only, Adc Test [facility] 1.2.840. 114 [id number] Univers 12:05:49 12:20:49 Only Mary Rios 350.1.13.10 ity of [place].7.2.686 [place] [phone] [facility] [address] 2020-09-26 2020-09-26 Outpatient R [facility] [id number] Univers 12:00:00 12:00:00 ity of [facility] 2020-09-26 2020-09-26 Orders Doctor GREGORY 1.2.840.114 [id number] Univers 00:00:00 00:00:00 Only Unassigned, PARUL 350.1.13.10 ity of [facility] 4.2.7.2.686 Dwayne as [phone] [facility] [address] 2020-09-21 2020-09-21 Outpatient R RICHARD ANDERSON [facility] [id number] Univers 10:00:00 10:00:00 RICHARD ANDESRON ity of [facility] 2020-09-14 2020-09-15 Emergency Glen[place], TRAUMA 1.2.332.990 [id number] Univers 21:58:00 00:49:00 Cheo MOORE 350.1.13.10 [place] [id number] [facility] [address] 2020-09-12 2020-09-13 Emergency Peace [place] [facility] 1.2.840.114 [id number] Univers 19:41:00 00:37:00 Yulia Og 350.1.13.10 i ty of [id number] [phone] [address] 2020-09-12 2020-09-12 Telephone Justin, [facility] 1.2.840.114 [id number] Univers 00:00:00 00:00:00 Richard Douglas Og [id number] it[id number] [phone] [place] [id number] [facility] 2020-09-11 2020-09-11 Emergency Cade, [facility] 1.2.379.602 [id number] Univers 20:23:00 22:08:00 Wong [place] 350.1.13.10 i ty of [place] [phone] [address] 2020-08-31 2020-08-31 Emergency Kwaku Peace [facility] 1.2.840.114 [id number] Univers 11:19:00 13:58:00 Yulia Gutierrez 350.1.13.10 i ty of [place] [phone] [address] 2020-08-29 2020-08-29 Emergency Kwaku, K [facility] 1.2.840.114 [id number] Univers 20:48:00 23:11:00 Yulia Gutierrez 350.1.13.10 i ty of [place] [id number] [phone] [address] 2020-06-07 2020-06-[address] [facility] 1.2.971.800 [id number] Univers 10:50:31 11:18:03 Visit Alma Estevez TRANSPLANT COORDINATOR [id number] ity of [facility] 4.2.7.2.686 Dwayne as MATERNAL [phone] Med ical & CHILD 107 [facility] 2020-06-07 2020-06-07 Outpatient R IRMA [facility] [id number] Univers 11:00:00 11:00:00 ALMA pierce [facility] 2020-05-29 2020-05-[address] [facility] 1.2.840.114 [id number] Univers 00:00:00 00:00:00 Outreach Santosh JUVE 350.1.13.10 i ty of [facility] [place] [phone] Pr dical [address] 2020-05-13 2020-05-[address] [facility] 1.2.840.114 [id number] Univers 19:12:00 21:45:00 Yulia Annton 350.1.13.10 i ty of [place] [phone] [facility] 084 Branch 2020-05-13 2020-05-13 Orders Doctor COLT 1.2.840.114 [id number] Univers 00:00:00 00:00:00 Only Unassigned, PARUL 350.1.13.10 ity of [place] [facility] 4.2.7.2.686 Dwayne as [phone] [facility] 009 Branch 2020-01-19 2020-01-19 Telephone Visit, [facility] 1.2.685.336 [id number] Univers 00:00:00 00:00:00 Reddy-chp TRANSPLANT COORDINATOR 350.1.13.10 ity of Nurse [facility] 4.2.7.2.686 Dwayne as MATERNAL [phone] [facility] ical & CHILD [address] [place] [address] 2020-01-17 2020-01-17 [facility] 1.2.840.114 [id number] Univers 13:39:45 14:25:08 Visit Trever Clemente TRANSPLANT COORDINATOR 350.1.13.10 ity of [facility] 4.2.7.2.686 Dwayne as MATERNAL [phone] [facility] & CHILD [address] [place] [address] 2020-01-17 2020-01-17 [facility] [id number] Univers 13:45:00 13:45:00 TREVER pierce [facility] 2020-01-16 2020-01-[address] [facility] [id number] Univers 00:00:00 00:00:00 Rosbelindanda R TRANSPLANT COORDINATOR 350.1.13.10 ity of REGIONAL 4.2.7.2.686 [place]wayne as MATERNAL [phone] [facility] & CHILD [address] [place] [address] 2019-12-30 2019-12-30 Nurse Visit, [facility] Nurse [facility] 1.2 .840.114 [id number] Univers 10:22:21 10:37:21 Visit Abena Patel TRANSPLANT COORDINATOR 350.1.13.10 ity of REGIONAL 4.2.7.2.686 [place] as MATERNAL [phone] [address] 2019-12-30 2019-12-30 Outpatient R [facility] [id number] Univers 10:30:00 10:30:00 ity of [facility] 2019-12-21 2019-12-21 [facility] 1.2.659.177 [id number] Univers 00:00:00 00:00:00 Brittanicookiea R TRANSPLANT COORDINATOR 350.1.13.10 ity of REGIONAL 4.2.7.2.686 [place]way[place] as MATERNAL [phone] [facility] & [address] 2019-12-20 2019-12-[address] [facility] 1.2.840.114 [id number] Univers 13:03:11 13:55:34 Visit Trever R TRANSPLANT COORDINATOR 350.1.13.10 ity of [facility] 4.2.7.2.686 Dwayne as MATERNAL [phone] [facility] & CHILD [address] [place] [address] 2019-12-20 2019-12-20 [facility] [id number] Univers 12:45:00 12:45:00 ROSBELINDANDA ity o f [facility] 2019-10-24 2019-10-[address] [facility] 1.2.840.114 [id number] Univers 00:00:00 00:00:00 Abena Camarillo TRANSPLANT COORDINATOR 350.1.13.10 it y of REGIONAL 4.2.7.2.686 [place]wayne as MATERNAL [id number] [facility] ical & CHILD [address] [place] [address] 2019-10-17 2019-10-17 Outpatient R [facility] [id number] Univers 15:00:00 15:00:00 ity [facility] 2019-09-28 2019-09-28 Telephone [facility] 1.2.840.114 [id number] Univers 00:00:00 00:00:00 Abena Camarillo TRANSPLANT COORDINATOR 350.1.13.10 it y of REGIONAL 4.2.7.2.686 [place]way[place] as MATERNAL [phone] Med ical & CHILD [address] [place] [address] 2019-09-27 2019-09-27 Office [facility] 1.2.507.599 [id number] Univers 14:03:06 14:59:44 Visit Abena Camarillo TRANSPLANT COORDINATOR 350.1.13.10 it y of REGIONAL 4.2.7.2.686 Dwayne as MATERNAL [phone] [facility] & CHILD [address] [place] [address] 2019-09-27 2019-09-27 [facility] [id number] Univers 14:00:00 14:00:00 ABENA [facility] 2019-08-26 2019-08-26 Foot Orthopedist Lab, Ang-Rmchp [facility] 1.2.840. 114 [id number] Univers 12:52:43 13:06:01 Visit Alma Solis TRANSPLANT COORDINATOR 350.1.13. 10 ity of [facility] 4.2.7.2.686 Dwayne as MATERNAL [phone] [facility] & [address] 2019-08-26 2019-08-26 [facility] [id number] Univers 13:00:00 13:00:00 ALMA braxton f [facility] 2019-08-19 2019-08-19 Outpatient R [facility] [id number] Univers 13:00:00 13:00:00 ity [facility] 2019-08-18 2019-08-18 Outpatient R [facility] [id number] Univers 13:00:00 [facility]:00[facility] 2019-08-18 2019-08-18 Emergency X AGUS [facility] ERT [id number] Univers 08:24:15 11:52:00 RAVEN hammonds [facility] 2019-08-18 2019-08-18 Emergency [facility] 1.2.450.887 [id number] Univers 08:24:15 11:52:00 Raven Gutierrez 350.1.13.10 i ty of [place] 4.2.7.2.686 [facility] [phone] [address] 2019-08-18 2019-08-18 Orders Doctor COLT 1.2.840.114 [id number] Univers 00:00:00 00:00:00 Only Unassigned, PARUL 350.1.13.10 ity of [place] [facility] 4.2.7.2.686 Dwayne as [phone] [facility] 00[address] [place] 2019-07-31 2019-07-31 Telephone COLT Miramontes 1.2.232.521 [id number] Univers 00:00:00 00:00:00 Kevin CAT 350.1.13.10 i ty of [facility] 4.2.7.2.686 [place]way[place] as [id number] [facility] 019 [place] 2019-07-28 2019-07-29 Emergency [facility] [id number] Univers 18:06:33 00:02:00 TISH yolie [facility] 2019-07-28 2019-07-29 Emergency [facility] 1.2.840.114 [id number] Univers 18:06:33 00:02:00 Tish Alden 350.1.13.10 i ty of [place] 4.2.7.2.686 [facility] [id number] [address] 2019-07-18 2019-07-[address] [facility] 1.2.840.114 [id number] Univers 12:55:14 14:20:25 ne Visit Alma Estevez TRANSPLANT COORDINATOR 350.1.13.10 ity of [facility] 4.2.7.2.686 Dwayne as MATERNAL [phone] Med ical & CHILD [address] [place] [address] 2019-07-18 2019-07-18 Outpatient R IRMA [facility] [id number] Univers 14:00:00 14:00:00 ALMA hammonds o f [facility] 2019-06-27 2019-06-27 Outpatient R [facility] [id number] Univers 15:30:00 15:30:00 ity [facility] 2019-06-26 2019-06-26 Emergency X UMPQUA, [facility] ERT [id number] Univers 19:06:29 21:03:00 LORY ity [facility] 2019-06-26 2019-06-26 Emergency Urbina, [facility] 1.2.840.114 [id number] Univers 19:06:29 21:03:00 Lory [facility] 350.1.13.10 [place] [phone] [address] ([facility]) 2019-06-26 2019-06-26 Telephone Akinaure, [facility] 1.2.840.114 [id number] Univers 00:00:00 00:00:00 Alma Estevez TRANSPLANT COORDINATOR 350.1.13.10 ity of REGIONAL 4.2.7.2.686 [place] as MATERNAL [id number] Med ical & CHILD [address] [place] [address] 2019-06-24 2019-06-24 Outpatient R [facility] [id number] Univers 09:30:00 09:30:00 ity [facility] 2019-06-23 2019-06-23 [facility] 1.2.840.114 [id number] Univers 12:57:38 15:49:57 ne Visit Alma Estevez TRANSPLANT COORDINATOR 350.1.13.10 ity of REGIONAL 4.2.7.2.686 Dwayne as MATERNAL [phone] Med ical & CHILD [address] [place] [address] 2019-06-23 2019-06-23 [facility] [id number] Univers 15:30:00 15:30:00 ALMA hammonds o f [facility] 2019-06-22 2019-06-22 Outpatient [facility] [id number] Univers 13:30:00 13:30:00 ABENA hammonds [facility] 2019-06-22 2019-06-22 Telephone Visit, [facility] 1.2.092.589 [id number] Univers 00:00:00 00:00:00 [facility] TRANSPLANT COORDINATOR 350.1.13.10 ity of Nurse [facility] 4.2.7.2.686 Dwayne as MATERNAL [phone] Med ical & CHILD [address] [place] [address] 2019-06-22 2019-06-[address] [facility] 1.2.840.114 [id number] Univers 00:00:00 00:00:00 Unassigned, TRANSPLANT COORDINATOR 350.1.13.10 ity of [place] [facility] 4.2.7.2.686 Dwayne as MATERNAL [phone] Med ical & CHILD [address] [place] [address] 2019-06-21 2019-06-21 Foot Orthopedist Lab, [facility] 1.2.840. 114 [id number] Univers 13:00:32 13:15:32 Visit Alma Solis TRANSPLANT COORDINATOR 350.1.13. 10 ity of [facility] 4..7.2.686 Dwayne as MATERNAL [phone] [facility] & CHILD [address] [place] [address] 2019-06-21 2019-06-21 Outpatient R IRMA [facility] [id number] Univers 10:30:00 10:30:00 ALMA pierce [facility] 2019-06-21 2019-06-21 Telephone [facility] 1.2.840.114 [id number] Univers 00:00:00 00:00:00 Abena Camarillo TRANSPLANT COORDINATOR 350.1.13.10 it y of [facility] 4.2.7.2.686 Dwayne as MATERNAL [id number] Med ical & CHILD [address] [place] [address] 2019-06-20 2019-06-20 Telephone [facility] 1.2.840.114 [id number] Univers 00:00:00 00:00:00 Abena Camarillo TRANSPLANT COORDINATOR 350.1.13.10 it y of [facility] 42.7.2.686 Dwayne as MATERNAL [phone] Med ical & CHILD [address] [place] [address] 2019-06-10 2019-06-10 Telephone [facility] 1.2.840.114 [id number] Univers 00:00:00 00:00:00 Abena Camarillo TRANSPLANT COORDINATOR 350.1.13.10 it y of REGIONAL 4.2.7.2.686 [place]wayne as MATERNAL [id number] [facility] ical & CHILD [address] [place] [address] 2019-05-20 2019-05-20 Telephone [facility] 1.2.840.114 [id number] Univers 00:00:00 00:00:00 Abena Camarilol TRANSPLANT COORDINATOR 350.1.13.10 it y of REGIONAL 4.2.7.2.686 Dwayne as MATERNAL [id number] [facility] ical & CHILD [address] [place] [address] 2019-05-19 2019-05-19 Telephone [facility] 1.2.840.114 [id number] Univers 00:00:00 00:00:00 Abena Camarillo TRANSPLANT COORDINATOR 350.1.13.10 it y of REGIONAL 4.2.7.2.686 Dwayne as MATERNAL [phone] [facility] & [address] 2019-05-17 2019-05-17 Office [facility] [id number] Univers 13:24:09 13:50:08 Visit Abena Camarillo TRANSPLANT COORDINATOR 350.1.13.10 it y of REGIONAL 4.2.7.2.686 Dawyne as MATERNAL [id number] [address] 2019-05-17 2019-05-17 Outpatient R JORGE [facility] [id number] Univers 13:30:00 13:30:00 ABENA hammonds [facility] 2019-05-06 2019-05-06 Outpatient R GIANNA [facility] [id number] Univers 08:15:00 08:15:00 TREVER hammonds o f [facility] 2019-04-20 2019-04-20 Emergency Kwaku, K [facility] 1.2.840.114 [id number] Univers 11:02:10 14:18:00 Yulia Alden 350.1.13.10 i ty [facility] 4.2.7.2.686 [phone] [address] 2019-03-29 2019-03-29 Telephone [facility] 1.2.788.110 [id number] Univers 00:00:00 00:00:00 Trever Clemente TRANSPLANT COORDINATOR 350.1.13.10 ity of REGIONAL 4.2.7.2.686 Dwayne as MATERNAL [phone] [facility] & CHILD [address] [place] [address] 2019-03-22 2019-03-22 Telephone Gianna VASONJA [id number] Univers 00:00:00 00:00:00 Trever Clemente TRANSPLANT COORDINATOR 350.1.13.10 ity of [facility] 4.2.7.2.686 Dwayne as MATERNAL [phone] [facility] & CHILD [address] [place] [address] 2019-03-21 2019-03-[address] [facility] 1.2.840.[id number] [place] [address] 15:39:38 16:25:05 Visit Trever Clemente TRANSPLANT COORDINATOR 350.1.13.10 ity of [facility] 4.2.7.2.686 Dwayne as MATERNAL [phone] [facility] & [address] Results Test Description Test Time Test [...] U APPEAR (test code = 3267) . [facility] METABOLIC PANEL (NA, K, CL, CO2, GLUCOSE, BUN, CREATININE, CA)2022-07-15 20:01:56 Test Item Value Reference Range Interpretation Comments NA (test code = 137 mmol/L 135-145 3082292217) K (test code = 4.1 mmol/L 3.5-5.0 0873802816) CL (test code = 104 mmol/L 98-108 1752112670) CO2 TOTAL (test code = 21 mmol/L 23-31 L 0710865184) AGAP (test code = 12 2-16 3023418747) BUN (test code = 4 mg/dL 7-23 L 3829372939) GLUCOSE (test code = 84 mg/dL 70-110 8118907400) CREATININE (test code = 0.43 mg/dL 0.50-1.04 L 1483120960) CALCIUM (test code = 9.4 mg/dL 8.6-10.6 1768356637) eGFR (test code = 178.9 mL/min/1.73m2 6541384180) MARCELLE (test code = MARCELLE) Association of [...] tests). Lab Interpretation Abnormal (test code = 95528-8) [facility] WITH [id number] 19:50:53 Test Item Value Reference Range Interpretation Comments WBC (test code = 9.07 See_Comment [Automated 6690-2) message] The sy stem which generated this result transmitted reference range : 4.30 - 11.10 10*3/?L. The reference range was not used to interpret this result as normal/abnormal . RBC (test code = 4.88 See_Comment [Automated 789-8) message] The sy stem [...] RDW-SD (test code = 43.8 fL 39.0-49.9 32143-7) RDW-CV (test code = 14.8 % 12.0-15.5 788-0) PLT (test code = 302 See_Comment [Automated 777-3) message] The sy stem which generated this result transmitted reference range : 166 - 358 10*3/ ?L. The reference r david was not used to interpret this result as normal/abnormal . MPV (test code = 9.7 fL 9.5-12.9 36912-6) NRBC/100 WBC (test 0.0 See_Comment [Automat ed code = 9123823913) message] The system which generated this result transmitted reference range : 0.0 - 10.0 /100 WBCs. The refer ence range was not u sed to interpret th is result as normal/abnormal . NRBC x10^3 (test code See_Comment [Auto mated = 1763349880) message] The s ystem which generated this result transmitted reference range : 10*3/?L. The reference range was not used to interpret this result as normal/abnormal . GRAN MAT (NEUT) % 62.8 % (test code = 770-8) IMM GRAN % (test code 1.00 % = 3170661366) LYMPH % (test code = 28.6 % 736-9) MONO % (test code = 6.2 % 5905-5) EOS % (test code = 1.2 % 713-8) BASO % (test code = 0.2 % 706-2) GRAN MAT x10^3(ANC) 5.70 10*3/uL 1.88-7.09 (test code = 8290287855) IMM GRAN x10^3 (test 0.09 10*3/uL 0.00-0.06 H code = 9577857448) LYMPH x10^3 (test code 2.59 10*3/uL 1.32-3.29 = 731-0) MONO x10^3 (test code 0.56 10*3/uL 0.33-0.92 = 742-7) EOS x10^3 (test code = 0.11 10*3/uL 0.03-0.39 711-2) BASO x10^3 (test code 0.01-0.07 = 704-7) Lab Interpretation Abnormal (test code = 73610-3) [facility] URINALYSIS W SPECIFIC [id number] 20:59:00 Test Item Value Reference Range Interpretation [...] POCT U APPEAR (test code = 3267) [facility] URINALYSIS W SPECIFIC [id number] 20:59:00 Test Item Value Reference Range Interpretation [...] POCT U APPEAR (test code = 3267) [facility] URINALYSIS W SPECIFIC [id number] 20:59:00 Test Item Value Reference Range Interpretation [...] POCT U APPEAR (test code = 3267) [facility] URINALYSIS W/O SPECIFIC [id number] 19:18:00 Test Item Value Reference Range Interpretation [...] code = 3257) NEG Negative - Negative [facility] [id number] 19:17:00 Test Item Value Reference Range Interpretation Comments POCT PREG (test code = 1605) Positive On board controls acceptable with C Yes Line (test code = 3574) POCT PREG LOT # (test code = 3575) POCT PREG TEST DATE (test code = 3576) [facility] [id number] 05:04:00 Test Item Value Reference Range Interpretation Comments POCT PREG (test code = 1605) negative On board controls acceptable with present C Line (test code = 3574) POCT PREG LOT # (test code = 3575) [id number] POCT PREG TEST DATE (test 2023-08-07 code = 3576) Lab Interpretation (test code = Normal 63426-2) [facility]. METABOLIC PANEL (82300)2022-04-22 04:55:23 Test Item Value Reference Range Interpretation Comments NA (test code = 135 mmol/L 135-145 7813940411) K (test code = 4.0 mmol/L 3.5-5.0 9059719728) CL (test code = 105 mmol/L 98-108 6784022697) CO2 TOTAL (test code = 24 mmol/L -31 7886509374) AGAP (test code = 6 2-16 2083018903) BUN (test code = 12 mg/dL 7-23 4344170726) GLUCOSE (test code = 117 mg/dL 70-110 H 6529600497) CREATININE (test code = 0.50 mg/dL 0.50-1.04 9597132943) TOTAL BILI (test code = 0.5 mg/dL 0.1-1.2 1037335092) CALCIUM (test code = 8.6 mg/dL 8.6-10.6 1619600991) T PROTEIN (test code = 6.3 g/dL 6.3-8.2 6208080800) ALBUMIN (test code = 4.0 g/dL 3.5-5.0 8641098804) ALK PHOS (test code = 71 U/L 34-122 4103519901) ALTv (test code = 25 U/L 5-35 1742-6) AST(SGOT) (test code = 30 U/L 13-40 0617588620) eGFR (test code = 150.3 mL/min/1.73m2 2914598257) MARCELLE (test code = MARCELLE) Association of [...] tests). Lab Interpretation Abnormal (test code = 71164-8) [facility] WITH [id number] 04:43:57 Test Item Value Reference Range Interpretation Comments WBC (test code = 8.83 See_Comment [Automated 8450-2) message] The sy stem which generated this [...] RDW-SD (test code = 44.5 fL 39.0-49.9 37174-7) RDW-CV (test code = 15.0 % 12.0-15.5 788-0) PLT (test code = 270 See_Comment [Automated 777-3) message] The sy stem which generated this result transmitted reference range : 166 - 358 10*3/ ?L. The reference r david was not used to interpret this result as normal/abnormal . MPV (test code = 10.5 fL 9.5-12.9 34493-0) NRBC/100 WBC (test 0.0 See_Comment [Automat ed code = 0208033918) message] The system which generated this result transmitted reference range : 0.0 - 10.0 /100 WBCs. The refer ence range was not u sed to interpret th is result as normal/abnormal . NRBC x10^3 (test code See_Comment [Auto mated = 7492501078) message] The s ystem which generated this result transmitted reference range : 10*3/?L. The reference range was not used to interpret this result as normal/abnormal . GRAN MAT (NEUT) % 54.9 % (test code = 770-8) IMM GRAN % (test code 0.60 % = 7395309548) LYMPH % (test code = 35.8 % 736-9) MONO % (test code = 6.5 % 5905-5) EOS % (test code = 1.7 % 713-8) BASO % (test code = 0.5 % 706-2) GRAN MAT x10^3(ANC) 4.86 10*3/uL 1.88-7.09 (test code = 8651644890) IMM GRAN x10^3 (test 0.05 10*3/uL 0.00-0.06 code = 0559512991) LYMPH x10^3 (test code 3.16 10*3/uL 1.32-3.29 = 731-0) MONO x10^3 (test code 0.57 10*3/uL 0.33-0.92 = 742-7) EOS x10^3 (test code = 0.15 10*3/uL 0.03-0.39 711-2) BASO x10^3 (test code 0.04 10*3/uL 0.01-0.07 = 704-7) Lab Interpretation Abnormal (test code = 89423-4) [facility] Screen - ONCE [id number] 20:36:00 Test Item Value Reference Range Interpretation Comments ABO & RH (test code O Negative Performe d at [facility] = 20) Laboratory Serv [facility] Blood Bank[address] [place], [place] [address]Toll Free: [phone] A No. [id number] IAT (test code = Positive Performed a t [facility] 1185) Laboratory [facility] Blood Bank[address] [place], [place] [address]Toll Free: [phone] A No. [id number] [facility] Taylor[facility]2022-12-11 19:33:27 Test Item Value Reference Range Interpretation Comments MAGNESIUM (test code = 8446261538) 2.0 mg/dL 1.7-2.4 Lab Interpretation (test code = Normal 20445-4) [facility] TaylorTROPON[facility] [id number] 19:16:05 Test Item Value Reference Interpretation Comments Range TROPONIN I (test 0.001 ng/mL See_Comment [Automated code = 0244609482) message] The system which generated this result [...] biotin. Lab Interpretation Normal (test code = 22653-2) [facility] Taylor[facility]-TERMINAL [id number] 19:13:04 Test Item Value Reference Range Interpretation Comments NT-proBNP (test code 189 pg/mL See_Comment H [Autom ated = 8527981955) message] The system which generated this result transmitted reference range : <=125. The reference range was not used to interpret this result as normal/abnormal . MARCELLE (test code = MARCELLE) Biotin has been reported to cause a negative bias, interpret results relative to patient's use of biotin. Lab Interpretation Abnormal (test code = 38843-0) [facility] METABOLIC PANEL (67137)2022-02-16 19:04:06 Test Item Value Reference Range Interpretation Comments NA (test code = 139 mmol/L 135-145 1709258615) K (test code = 4.0 mmol/L 3.5-5.0 2211979140) CL (test code = 110 mmol/L 98-108 H 0444807088) CO2 TOTAL (test code = 24 mmol/L 23-31 6549027455) AGAP (test code = 2-16 4783245368) BUN (test code = 10 mg/dL 7-23 1909837615) GLUCOSE (test code = 78 mg/dL 70-110 5599799167) CREATININE (test code = 0.49 mg/dL 0.50-1.04 L 8270792962) TOTAL BILI (test code = 0.3 mg/dL 0.1-1.3 8448485702) CALCIUM (test code = 8.7 mg/dL 8.6-10.6 8299144585) T PROTEIN (test code = 5.5 g/dL 6.3-8.2 L 3078142699) ALBUMIN (test code = 3.2 g/dL 3.5-5.0 L 1663927883) ALK PHOS (test code = 126 U/L 34-122 H 5858882247) ALTv (test code = 21 U/L 5-35 1742-6) AST(SGOT) (test code = 30 U/L 13-40 4300420315) eGFR (test code = mL/min/1.73m2 0757753913) MARCELLE (test code = MARCELLE) Association of [...] tests). Lab Interpretation Abnormal (test code = 88700-2) [facility] TaylorACTIVATED PARTIAL THRMPLAS [id number] 19:03:06 Test Item Value Reference Range Interpretation Comments APTT Patient (test See_Comment [Automat ed code = 3173-2) message] The system which generated this result transmitted reference range : 23 - 38 Seconds . The reference range was not used to interpr et this result as normal/abnormal . MARCELLE (test code = MARCELLE) The [facility] patient population mean normal value for aPTT is 30 seconds. Lab Interpretation Normal (test code = 18765-8) [facility] [id number] 19:01:04 Test Item Value Reference Range Interpretation [...] tions. Lab Interpretation (test Normal code = 68133-4) [facility] [id number] 18:49:05 Test Item Value Reference Range Interpretation Comments WBC (test code = See_Comment [Automated 2090-2) message] The sy stem which generated this result transmitted reference range : 4.30 - 11.10 10*3/?L. The reference range was not used to interpret this result as normal/abnormal . RBC (test code = See_Comment L [Automated 309-8) message] The sy stem which generated this [...] RDW-SD (test code = 45.1 fL 39.0-49.9 89254-4) RDW-CV (test code = 14.1 % 12.0-15.5 788-0) PLT (test code = See_Comment [Automated 777-3) message] The sy stem which generated this result transmitted reference range : 166 - 358 10*3/ ?L. The reference r david was not used to interpret this result as normal/abnormal . MPV (test code = 10.4 fL 9.5-12.9 28529-2) NRBC/100 WBC (test See_Comment [Automat ed code = [id number]) message] The system which generated this result transmitted reference range : 0.0 - 10.0 /100 WBCs. The refer ence range was not u sed to interpret th is result as normal/abnormal . NRBC x10^3 (test code See_Comment [Auto mated = [id number]) message] The s ystem which generated this result transmitted reference range : 10*3/?L. The reference range was not used to interpret this result as normal/abnormal . GRAN MAT (NEUT) % 72.7 % (test code = 770-8) IMM GRAN % (test code 1.30 % = 8454616820) LYMPH % (test code = 16.8 % 736-9) MONO % (test code = 6.7 % 5905-5) EOS % (test code = 2.3 % 713-8) BASO % (test code = 0.2 % 706-2) GRAN MAT x10^3(ANC) 6.67 10*3/uL 1.88-7.09 (test code = 9563406314) IMM GRAN x10^3 (test 0.12 10*3/uL 0.00-0.06 H code = 6678582731) LYMPH x10^3 (test code 1.54 10*3/uL 1.32-3.29 = 731-0) MONO x10^3 (test code 0.61 10*3/uL 0.33-0.92 = 742-7) EOS x10^3 (test code = 0.21 10*3/uL 0.03-0.39 711-2) BASO x10^3 (test code 0.01-0.07 = 704-7) Lab Interpretation Abnormal (test code = 98474-5) [facility]ERNAL HEMO [id number] 12:29:12 Test Item Value Reference Range Interpretation Comments SCREEN (test Negative Performed at [facility] code = 846) Laboratory Serv [facility] Blood [address] [place], [place] [address]Isui Free: [phone] A No. [id number] RHIG REQUIRED? 1 Syringe baby rh posPe rformed at (test code = 1747) [facility] Blood Ban k[address] [facility] s [address]Xbdr Free: [phone] A No. [id number] [facility] TaylorRH (D) IMMUNE [id number] 19:43:42 Test Item Value Reference Range Interpretation Comments RHIG CANDIDATE? (test Yes- see A Patien t is a code = 5055) comment candidate for RhIg- Patient i s Rh Negative and baby is Rh Positive.Perfor me d at [facility] Blood [address] [place] [address]Rhet Free: [phone] A No. [id number] Lab Interpretation Abnormal (test code = 55538-9) [facility] Taylor[facility]TERIAL CORD [id number] 17:18:47 Test Item Value Reference Range Interpretation Comments BASE EXCESS, CORD mEq/L QUES (test code = 3485543503) AC PH, CORD (BEAKER) 7.18-7.38 (test code = 3819031098) PC02, CORD (test code See_Comment [Auto mated message] The = 8947701654) system which g enerated this result transmit con reference range : 32 - 66 mmHg. The refer ence range was not used to interpret this result as normal/abnormal . PO2, CORD (test code See_Comment [Autom ated message] The = 5752737087) system which g enerated this result transmit con reference range : 10 - 30 mmHg. The refer ence range was not used to interpret this result as normal/abnormal . BICARBONATE, CORD See_Comment [Automate d message] The (test code = system which ge nerated this 8973020395) result transmit con reference range : 17 - 27 mEq/L. The refe rence range was not used to interpret this result as normal/abnormal . [facility] TaylorVENOUS CORD [id number] 17:17:10 Test Item Value Reference Range Interpretation Comments VENOUS BASE EXCESS, mEq/L CORD (test code = 5209650960) VENOUS PH, CORD (test 7.25-7.45 code = 6959198221) VENOUS PC02, CORD See_Comment [Automate d message] The (test code = system which ge nerated 1442146591) this result tra nsmitted reference range : 27 - 49 mmHg. The refer ence range was not used to interpret this result as normal/abnormal . VENOUS PO2, CORD (test See_Comment [Aut omated message] The code = 8378653385) system wh ich generated this result tra nsmitted reference range : 17 - 41 mmHg. The refer ence range was not used to interpret this result as normal/abnormal . VENOUS BICARBONATE, See_Comment QUES [Au tomated message] CORD (test code = The system which generated 7484820484) this result tra nsmitted reference range : 12 - 29 mEq/L. The refe rence range was not used to interpret this result as normal/abnormal . [facility] ONLY - SYPHILIS [id number] 17:00:56 Test Item Value Reference Range Interpretation Comments Syphilis IgG/IgM (test Non-reactive Non-reactive code = 01344-2) MARCELLE (test code = MARCELLE) Non-reactive - No serologic evidence of T. pallidum infection. Cannot exclude incubating or early syphilis. Submit a second specimen in 2-4 weeks if syphilis is clinically suspected. Equivocal - Further testing to follow. Reactive - Further testing to follow. Lab Interpretation (test Normal code = 52393-5) [facility] 1/2 AG-AB WITH [id number] 02:53:04 Test Item Value Reference Range Interpretation Comments HIV Negative Negative Semi-quantitative (test code = 67170-3) MARCELLE (test code = Non-reactive for HIV-1 MARCELLE) antigen and HIV-1/HIV-2 antibodies. ?No laboratory evidence of HIV infection. ?Repeat in 2-4 weeks if acute HIV infection is suspected. [facility] Taylor[facility] and Screen - ONCE [id number] 01:21:03 Test Item Value Reference Range Interpretation Comments ABO & RH (test code O NEGATIVE Performe d at [facility] = 20) Laboratory Serv [facility] Blood [facility]3 [address] [facility] s [address]Nbtw Free: [phone] A No. [id number] IAT (test code = Positive Performed a t [facility] 1185) Laboratory Serv [facility] Blood [facility] [address] [facility] s [address]Cgpx Free: [phone] A No. [id number] [facility] TaylorANTI-D R/O [id number] 01:21:03 Test Item Value Reference Range Interpretation Comments ANTIBODY (test Anti-D Probable RHIG given on code = 683) RhIg 01/02/22Perform ed at [facility] Xqxw425 [facility] s [address]Fynq Free: [phone] A No. [id number] [facility] TaylorHepatitis B Surface [id number] 00:41:53 Test Item Value Reference Range Interpretation Comments HBsAg Semi-Quantitative (test code = Negative Negative 5195-3) [facility] TaylorCB with [id number] 23:41:21 Test Item Value Reference Range Interpretation Comments WBC (test code = See_Comment [Automated 4390-2) message] The sy stem which generated this result transmitted reference range : 4.30 - 11.10 10*3/?L. The reference range was not used to interpret this result as normal/abnormal . RBC (test code = See_Comment [Automated 269-8) message] The sy stem which generated this [...] RDW-SD (test code = 43.6 fL 39.0-49.9 07812-5) RDW-CV (test code = 14.1 % 12.0-15.5 788-0) PLT (test code = See_Comment [Automated 777-3) message] The sy stem which generated this result transmitted reference range : 166 - 358 10*3/ ?L. The reference r david was not used to interpret this result as normal/abnormal . MPV (test code = 10.8 fL 9.5-12.9 00625-1) NRBC/100 WBC (test See_Comment [Automat ed code = 0229610664) message] The system which generated this result transmitted reference range : 0.0 - 10.0 /100 WBCs. The refer ence range was not u sed to interpret th is result as normal/abnormal . NRBC x10^3 (test code See_Comment [Auto mated = 4818988090) message] The s ystem which generated this result transmitted reference range : 10*3/?L. The reference range was not used to interpret this result as normal/abnormal . GRAN MAT (NEUT) % 64.7 % (test code = 770-8) IMM GRAN % (test code 1.20 % = 9915022113) LYMPH % (test code = 25.1 % 736-9) MONO % (test code = 7.4 % 5905-5) EOS % (test code = 1.3 % 713-8) BASO % (test code = 0.3 % 706-2) GRAN MAT x10^3(ANC) 6.10 10*3/uL 1.88-7.09 (test code = 2846000047) IMM GRAN x10^3 (test 0.11 10*3/uL 0.00-0.06 H code = 6539569544) LYMPH x10^3 (test code 2.36 10*3/uL 1.32-3.29 = 731-0) MONO x10^3 (test code 0.70 10*3/uL 0.33-0.92 = 742-7) EOS x10^3 (test code = 0.12 10*3/uL 0.03-0.39 711-2) BASO x10^3 (test code 0.03 10*3/uL 0.01-0.07 = 704-7) Lab Interpretation Abnormal (test code = 98803-0) [facility] URINALYSIS W SPECIFIC [id number] 20:06:00 Test Item Value Reference Range Interpretation [...] POCT U APPEAR (test code = 3267) [facility] URINALYSIS W SPECIFIC [id number] 22:20:00 Test Item Value Reference Range Interpretation [...] U APPEAR (test code = 3267) . [facility] TaylorType and Screen - ONCE [id number] 23:17:31 Test Item Value Reference Range Interpretation Comments ABO & RH (test code O Negative Performe d at [facility] = 20) Laboratory Serv [facility] Blood Bank[address] [place], [place] [address]Toll Free: [phone] A No. [id number] IAT (test code = Positive Performed a t [facility] 1185) Laboratory Serv [facility] Blood Bank[address] [place], [place] [address]Toll Free: [phone] A No. [id number] [facility] TaylorCBC WITH [id number] 05:45:31 Test Item Value Reference Range Interpretation Comments WBC (test code = See_Comment [Automated 7090-2) message] The sy stem which generated this [...] RDW-SD (test code = 43.4 fL 39.0-49.9 21169-1) RDW-CV (test code = 13.9 % 12.0-15.5 788-0) PLT (test code = See_Comment [Automated 517-3) message] The sy stem which generated this result transmitted reference range : 166 - 358 10*3/ ?L. The reference r david was not used to interpret this result as normal/abnormal . MPV (test code = 11.2 fL 9.5-12.9 12760-3) NRBC/100 WBC (test See_Comment [Automat ed code = 3519164148) message] The system which generated this result transmitted reference range : 0.0 - 10.0 /100 WBCs. The refer ence range was not u sed to interpret th is result as normal/abnormal . NRBC x10^3 (test code See_Comment [Auto mated = 5917653180) message] The s ystem which generated this result transmitted reference range : 10*3/?L. The reference range was not used to interpret this result as normal/abnormal . GRAN MAT (NEUT) % 67.3 % (test code = 770-8) IMM GRAN % (test code 1.00 % = 4148834008) LYMPH % (test code = 23.3 % 736-9) MONO % (test code = 7.1 % 5905-5) EOS % (test code = 1.0 % 713-8) BASO % (test code = 0.3 % 706-2) GRAN MAT x10^3(ANC) 5.85 10*3/uL 1.88-7.09 (test code = 8543854928) IMM GRAN x10^3 (test 0.09 10*3/uL 0.00-0.06 H code = 7652529153) LYMPH x10^3 (test code 2.03 10*3/uL 1.32-3.29 = 731-0) MONO x10^3 (test code 0.62 10*3/uL 0.33-0.92 = 742-7) EOS x10^3 (test code = 0.09 10*3/uL 0.03-0.39 711-2) BASO x10^3 (test code 0.03 10*3/uL 0.01-0.07 = 704-7) Lab Interpretation Abnormal (test code = 81067-8) [facility] WITH [id number] 05:45:31 Test Item Value Reference Range Interpretation [...] RDW-SD (test code = 43.4 fL 39.0-49.9 47930-0) RDW-CV (test code = 13.9 % 12.0-15.5 788-0) PLT (test code = See_Comment [Automated 777-3) message] The sy stem which generated this result transmitted reference range : 166 - 358 10*3/ ?L. The reference r david was not used to interpret this result as normal/abnormal . MPV (test code = 11.2 fL 9.5-12.9 17775-5) NRBC/100 WBC (test See_Comment [Automat ed code = 3169081923) message] The system which generated this result transmitted reference range : 0.0 - 10.0 /100 WBCs. The refer ence range was not u sed to interpret th is result as normal/abnormal . NRBC x10^3 (test code See_Comment [Auto mated = 8138149690) message] The s ystem which generated this result transmitted reference range : 10*3/?L. The reference range was not used to interpret this result as normal/abnormal . GRAN MAT (NEUT) % 67.3 % (test code = 770-8) IMM GRAN % (test code 1.00 % = 3309604245) LYMPH % (test code = 23.3 % 736-9) MONO % (test code = 7.1 % 5905-5) EOS % (test code = 1.0 % 713-8) BASO % (test code = 0.3 % 706-2) GRAN MAT x10^3(ANC) 5.85 10*3/uL 1.88-7.09 (test code = 3794338165) IMM GRAN x10^3 (test 0.09 10*3/uL 0.00-0.06 H code = 8285108731) LYMPH x10^3 (test code 2.03 10*3/uL 1.32-3.29 = 731-0) MONO x10^3 (test code 0.62 10*3/uL 0.33-0.92 = 742-7) EOS x10^3 (test code = 0.09 10*3/uL 0.03-0.39 711-2) BASO x10^3 (test code 0.03 10*3/uL 0.01-0.07 = 704-7) Lab Interpretation Abnormal (test code = 40935-1) [facility] URINALYSIS W SPECIFIC [id number] 20:37:00 Test Item Value Reference Range Interpretation [...] U APPEAR (test code = 3267) clear [facility] URINALYSIS W SPECIFIC [id number] 20:37:00 Test Item Value Reference Range Interpretation [...] U APPEAR (test code = 3267) clear [facility] URINALYSIS W SPECIFIC [id number] 20:37:00 Test Item Value Reference Range Interpretation [...] U APPEAR (test code = 3267) clear [facility] URINALYSIS W SPECIFIC [id number] 19:00:00 Test Item Value Reference Range Interpretation [...] U APPEAR (test code = 3267) . [facility] URINALYSIS W SPECIFIC [id number] 21:06:00 Test Item Value Reference Range Interpretation [...] U APPEAR (test code = 3267) clear [facility] URINALYSIS W SPECIFIC [id number] 16:34:00 Test Item Value Reference Range Interpretation [...] U APPEAR (test code = 3267) clear [facility] URINALYSIS W SPECIFIC [id number] 17:00:00 Test Item Value Reference Range Interpretation [...] U APPEAR (test code = 3267) cloudy [facility] URINALYSIS W SPECIFIC [id number] 18:51:00 Test Item Value Reference Range Interpretation [...] 3267) Lab Interpretation (test code = Abnormal 52576-5) [facility] URINALYSIS W SPECIFIC [id number] 19:16:00 Test Item Value Reference Range Interpretation [...] POCT U APPEAR (test code = 3267) [facility] URINALYSIS W SPECIFIC [id number] 18:26:00 Test Item Value Reference Range Interpretation [...] clear Lab Interpretation (test code = Normal 17446-3) [facility] URINALYSIS W SPECIFIC [id number] 20:47:00 Test Item Value Reference Range Interpretation [...] POCT U APPEAR (test code = 3267) [facility] URINALYSIS W SPECIFIC [id number] 19:47:00 Test Item Value Reference Range Interpretation [...] POCT U APPEAR (test code = 3267) [facility] URINALYSIS W SPECIFIC [id number] 19:47:00 Test Item Value Reference Range Interpretation [...] POCT U APPEAR (test code = 3267) [facility] URINALYSIS W SPECIFIC [id number] 13:14:00 Test Item Value Reference Range Interpretation [...] U APPEAR (test code = 3267) . [facility] URINALYSIS W SPECIFIC [id number] 13:14:00 Test Item Value Reference Range Interpretation [...] U APPEAR (test code = 3267) . [facility] URINALYSIS W SPECIFIC [id number] 13:14:00 Test Item Value Reference Range Interpretation [...] U APPEAR (test code = 3267) . [facility] URINALYSIS W SPECIFIC [id number] 13:14:00 Test Item Value Reference Range Interpretation [...] U APPEAR (test code = 3267) . [facility] URINALYSIS W SPECIFIC [id number] 13:14:00 Test Item Value Reference Range Interpretation [...] U APPEAR (test code = 3267) . [facility] URINALYSIS W SPECIFIC [id number] 13:14:00 Test Item Value Reference Range Interpretation [...] U APPEAR (test code = 3267) . [facility] URINALYSIS W SPECIFIC [id number] 13:14:00 Test Item Value Reference Range Interpretation [...] U APPEAR (test code = 3267) . [facility] URINALYSIS W SPECIFIC [id number] 13:14:00 Test Item Value Reference Range Interpretation [...] U APPEAR (test code = 3267) . [facility] URINALYSIS W SPECIFIC [id number] 13:14:00 Test Item Value Reference Range Interpretation [...] U APPEAR (test code = 3267) . [facility] TaylorLITHI[facility] [id number] 18:22:00 Test Item Value Reference Range Interpretation Comments LITHIUM LEVEL (BEAKER) 0.8 mmol/L 0.8-1.2 (test code = 630) SCAN RESULT (test code = See Scanned Report [id number]) [place], [id number] 14:13:01Reason for exam:->abnormal imaging [facility] : 1995 Sex: FFluoroscopic unit utilized for a procedure performed in the OR. No interpretation was requested. Refer to the operative report for findings. Refer to PACS for patient radiation dose information.COMPREHENSIVE METABOLIC [id number] 06:43:00 Test Item Value Reference Range Interpretation [...] S NOT APPLICABLE FOR DIALYSIS PATIEN TS. Patient Relations Liaison ID - [place] [facility] (HEMOGRAM ONLY)2020-09-24 06:04:00 Test Item Value Reference [...] (BEAKER) (test code = 413) COMPREHENSIVE METABOLIC [id number] 07:06:00 Test Item Value Reference Range Interpretation [...] S NOT APPLICABLE FOR DIALYSIS PATIEN TS. Patient Relations Liaison ID - [facility] (HEMOGRAM ONLY)2020-09-23 06:47:00 [...] (BEAKER) (test code = 413) COMPREHENSIVE METABOLIC [id number] 08:27:00 Test Item Value Reference Range Interpretation [...] S NOT APPLICABLE FOR DIALYSIS PATIEN TS. Patient Relations Liaison ID - MADISON [id number] 08:27:00 Test Item Value Reference Range Interpretation Comments MAGNESIUM (BEAKER) (test code = 2.4 mg/dL 1.6-2.6 627) Patient Relations Liaison ID - MADISON MPROTHROMBIN [id number] 07:59:00 Test Item Value Reference Range Interpretation Comments PROTIME (BEAKER) 13.0 seconds 11.9-14.2 (test code = 759) INR (BEAKER) (test 1.00 See_Comment [Automat ed message] code = 370) The system [employer] generated this result transmitted ref erence range: <=5.90. The reference range was not used to int erpret this result as normal/abnormal . RECOMMENDED COUMADIN/WARFARIN INR THERAPY RANGESSTANDARD DOSE: 2.0 - 3.0 Includes: PROPHYLAXIS for venous thrombosis, systemic embolization; TREATMENT for venous thrombosis and/or pulmonary embolus.HIGH RISK: Target INR is 2.5-3.5 for patients with mechanical heart valves.CBC W/PLT COUNT & AUTO [id number] 07:49:00 Test Item Value Reference Range Interpretation [...]
--- NOTE | 2022-09-16 12:05 | RAD REPORT ---
EXAM DESCRIPTION: RAD - Chest Single View - 09/16/2022 11:57 am CLINICAL HISTORY: COUGH Chest pain. COMPARISON: Chest Single View dated 10/04/2021; Chest Single View dated 09/10/2021; Chest Single View d ated 10/25/2016; Chest Single View dated 07/24/2015 FINDINGS: Portable technique limits examination quality. The lungs are grossly clear. The heart is normal in size. No displaced fractures. IMPRESSION: No acute intrathoracic process suspected.
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
[2022-09-16 13:50] VITALS: BP 121/81; TEMP 98.1; O2SAT 100
== END 2022-09-16 13:30 | disposition home or self-care (01) ==
LOC: ER 11:24
DX: J20.9 Acute bronchitis, unspecified (principal); L03.116 Cellulitis of left lower limb; Z88.1 Allergy status to other antibiotic agents; Z88.8 Allergy status to other drugs, medicaments and biological substances
CPT/HCPCS: 71045; 99283

== ENCOUNTER 2022-10-26 11:58 | Emergency (ER) | payer BC, OTHER ==
--- OUTSIDE RECORDS SUMMARY | 2022-10-26 12:15 | XMS REPORT | Continuity of Care Document ---
:1995 Author Organization [facility] t Address [address] [facility] [address] [place] [address] Care Team Providers Name Role Phone Asked, No Pcp Primary Care Physician Unavailable JOANNE PARKINSON Attending Clinician Unavailable LUKE FISH Attending Clinician Unavailable BANDAR SUAREZ Attending Clinician Unavailable BANDAR SUAREZ Attending Clinician Unavailable Martin Huang Attending Clinician Unavailable ALMA SOLIS Attending Clinician Unavailable Alma Vasquez Attending Clinician [phone] MARICHUY SMITH Attending Clinician Unavailable Marichuy Arias Attending Clinician Doctor Unassigned, [place] Attending Clinician Unavailable Kevin Colbert Attending Clinician KEVIN SINGH Attending Clinician Unavailable Risk, Agq-Zexob-Cz/High Attending Clinician Unavailable DARIELA JACOB Attending Clinician Unavailable Dariela Jacob MD Attending Clinician SUNNY, ZEN Attending Clinician Unavailable ZEN CORREA Attending Clinician Unavailable Lab, [facility] Attending Clinician Unavailable Javan DOLL, Akosua Begum Attending Clinician 1, [facility] Room Attending Clinician Unavailable Taya GAITAN, Mallory Attending Clinician CHIQUIS KATE Attending Clinician Unavailable CHIQUIS KATE Attending Clinician Unavailable Humble TAYLOR, Chiquis Attending Clinician RADHA NOBLES Attending Clinician Unavailable Giuliano CNRadha Gleason Attending Clinician Faculty, [facility] Mf Attending Clinician Unavailable Rahul TAYLOR, Seth Pearson Attending Clinician SETH KAY Attending Clinician Unavailable KIARRA ARIZMENDI Attending Clinician Unavailable Ugo ENROLLMENT ADVISOR, Kiarra Attending Clinician BRUCE FOFANA Attending Clinician Unavailable MAU RHOADES Attending Clinician Unavailable Nurse, [facility] Attending Clinician Unavailable Unknown, Attending Attending Clinician Unavailable Provider, [facility] Temp Attending Clinician Unavailable COLT MICHAELS Attending Clinician Unavailable Dennys Lara MD Attending Clinician RAVEN GOLDSMITH Attending Clinician Unavailable Raven Goldsmith MD Attending Clinician Eladia Conklin MD Attending Clinician [phone] Nory Jiménez DO Attending Clinician Martha Agarwal MD Attending Clinician DENNYS LARA Attending Clinician Unavailable Areli Patel DO Attending Clinician AMY SHARMA Attending Clinician Unavailable [facility]ending Clinician Pob, Adc Lab Main Attending Clinician Unavailable Vira Lowry MD, Neal Attending Clinician [phone] NEAL REED Attending Clinician Unavailable Trever Hernandez Attending Clinician Luke Fish MD Attending Clinician ARELI PATEL Attending Clinician Unavailable Vijaya Wyman RN Attending Clinician Unavailable Ezio, [facility] Attending Clinician Unavailable TREVER KATZ Attending Clinician Unavailable Anton Renteria MD Attending Clinician ANTON RENTERIA Attending Clinician Unavailable Jorge GAITAN, Abena Camarillo Attending Clinician ABENA PATEL Attending Clinician Unavailable RICHARD ANDERSON Attending Clinician Unavailable RICHARD ANDERSON Attending Clinician Unavailable ANGELO KENNEY Attending Clinician Unavailable Angelo Kenney MD Attending Clinician BERTHA LANDAVERDE Attending Clinician Unavailable Tyra ROUSSEAU, Bertha S Attending Clinician Richard Anderson MD Attending Clinician ARMEN RODRIGUEZ Attending Clinician Unavailable Armen Rodriguez MD Attending Clinician [facility], [facility] Attending Clinician Unavailable LILIANA SALINAS Attending [...] Clinician Santosh Simon DO Attending Clinician Terence, [facility] Nurse Attending Clinician Unavailable Kulwinder MCGOWAN, Kevin Camacho Attending Clinician Unavailable TISH NEVAREZ Attending Clinician Unavailable Nick GAITAN, Tish Attending Clinician LORY URBINA I Attending Clinician Unavailable Lory Urbina DO, I Attending Clinician BANDAR SUAREZ Admitting Clinician Unavailable LUKE FISH Admitting Clinician Unavailable JOANNE PARKINSON Admitting Clinician Unavailable Physician, No Primary or Family Admitting Clinician Unavaila RAVEN [place] Admitting Clinician Unavailable CHIQIUS KATE Admitting Clinician Unavailable Chiquis Kate MD Admitting Clinician DENNYS LARA Admitting Clinician Unavailable Dennys Lara MD Admitting Clinician Luke Fish MD Admitting Clinician BERTHA LANDAVERDE Admitting Clinician Unavailable Mary Rios MD Admitting Clinician MIRELLA STANFORD Admitting Clinician Unavailable TISH NEVAREZ Admitting Clinician Unavailable LORY URBINA I Admitting Clinician Unavailable Payers Payer Name Policy Type Policy Number Effective Date Expiration Date Piyush sofia [facility] [id number] 2021 00:00:00 [facility] [id number] 2017 [place] 00:00:00 Problems Condition Condition Condition Status Onset Resolution Last Treating Co mments Source Name Details Category Date Date Treatment Clinician Date Shortness Shortness Disease Active Uni vers of breath of breath 8-13 ity of 00:00: [address] Elevated Elevated Disease Active Unive rs blood blood 8-13 ity of pressure pressure 00:00: [place] affecting affecting 00 [facility] Bran ch in second in second trimester, trimester, antepartum antepartum Nausea and Nausea and Disease Active U nivers vomiting vomiting 5-02 ity of in in 00:00: [place] [address] [facility] Branch Attention Attention Disease Active Uni vers deficit deficit 4-11 [place] hyper[place] Medical disorder disorder Branch (ADHD), (ADHD), unspecifie unspecifie d ADHD d ADHD type type Anemia, Anemia, Disease Active 2021-03 Univers 2-27 it y of 00:00: [address] 37 weeks 37 weeks Disease Active 2021-03 Unive rs gestation gestation 2-05 ity of of of 00:00: [place] 00 [facility] Seizure Seizure Disease Active 2021-03 Univers 1-24 ity of 00:00: [place] 00 Medical Branch Disease Active 2021-03 Uni vers with with 0-11 ity of adoption adoption 00:00: [place] planned planned 00 Medical Branch URI (upper URI (upper Disease Active U nivers respirator respirator 9-25 it y of y y 00:00: [place] infection) infection) 00 La dical Branch 27 weeks 27 weeks Disease Active Unive rs gestation gestation 9-25 ity of of of 00:00: [place] [address] [facility] Branch Round Round Disease Active Univers ligament ligament 9-25 ity of pain pain 00:00: [place] 00 Medical Branch BMI BMI Disease Active Univers 35.0-35.9, 35.0-35.9, 9-23 it y of adult adult 00:00: [place] 00 Medical Branch Elevated Elevated Disease Active Unive rs blood blood 8-09 ity of pressure pressure 00:00: [place] reading reading 00 Medical without without Branch diagnosis diagnosis of of hypertensi hypertensi on on Atypical Atypical Disease Active Overview: Un aubree squamous squamous - [place] ity of cells of cells of 00:00: g of this [place] as undetermin undetermin 00 note La dical ed ed might be Branch significan significan different ce (ASCUS) ce (ASCUS) from the on on original. Papanicola Papanicola Repeat ou smear ou smear pap in of cervix of cervix 1yr 07/2022 History of History of Disease Active Overview : Univers abnormal abnormal -19 [place] ity of cervical cervical 00:00: g of this [place] as Pap smear Pap smear [address] [facility] might be Branch different from the original. 05/2018 negative pap/202 2 ASCUS04/2 023 negative pap, routine screening Supervisio Supervisio Disease Active U nivers n of n of 5-05 ity of high-risk high[place]risk [place] [address] [facility] [place] History of History of Disease Active Overview : Univers anxiety anxiety 5-05 Form[place] ity o f 00:00: g of this [place] 00 note Medical might be Branch different from the original. Reports on buspirone Multiparit Multiparit Disease Active U nivers y y 5-05 ity of 00:00: [place] Medical Branch Obesity in Obesity in Disease Active U nivers 5- ity of 00:: [place] [address] Medical Branch Depression Depression Disease Active Overview : Univers affecting affecting 5-05 Formattin i ty of , , 00:00: g of this [place] antepartum antepartum 00 note Me dical might be Branch different from the original. Reports on buspirone Frequent Frequent Disease Active Unive rs UTI UTI 8- ity of 00:: [place] [address] Medical Branch Seizure Seizure Disease Active Overview: Univ ers disorder disorder 10-01 Formattin ity of in in 00:00: g of this [place] 00 note Medi tressa might be Branch different from the original. Last episode 2 months ago , not on meds Abdominal Abdominal Disease [facility] 00 Center Abnormal Abnormal Disease Active [facility]: [place] [address] Center UTI UTI Disease Active Univers symptoms symptoms 4-01 ity of 00:: [place] [address] Medical Branch Abnormal Abnormal Disease Active Unive rs EKG EKG 10-08 ity of 00:: [place] [address] Medical Branch Anxiety Anxiety Disease Active Univers during during 6-28 [place] of [place] 00 Medica l trimester, trimester, Br anch antepartum antepartum Rh Rh Disease Active Overview: Univer s negative negative 6-15 [place] ity of state in state in 00:00: g of this [place] antepartum antepartum 00 note Me dical period period might be Branch different from the original. Will need rhogam at 28 weeks . Susceptibl Susceptibl Disease Active Overview : Univers e to e to 6-15 [place] ity of varicella varicella 00:00: [place] (non-immun (non-immun 00 note Me dical e), e), might be Branch currently currently different from the original. Address pp Vaginal Vaginal Disease Active Univers discharge discharge 7- ity of 00:00: [place] [address] Medical Branch Chlamydia Chlamydia Disease Active Uni vers 5-10 ity of 00:00: [place] 00 Medical Branch Bipolar Bipolar Disease Active Overview: Univ ers disease disease 5- Form[place] ity o f during during 00:00: g of this [place] 00 note Medi tressa might be Branch [...] 00 Center Doxycycl Drug Active Hives, Rash 2019-[address] [facility] Allergy 2-12 [facility] Center Tramadol Drug Active Other (See 2019-[address] Allergy Comments) 2-12 [facility] 00 Center DOXYCYCL Allergy Active High Hives 2019-[address] [facility] INE 2-12 [facility] 00:[facility] Medical 00 Center TRAMADOL Allergy Active Other 2019- [facility] 00:[facility]: Medical 00 [...] 2-12 ity of 00:00: [place] 00 Medical [place] TRAMADOL DRUG Active Other-Cmnt 2019-0 Univ ers INGREDI 2-12 ity of 00:00: [place] 00 [facility] No Known DA Active U [facility] 05-13 [facility] 00 [facility] Social History Social Habit Start Date Stop Date Quantity Comments Source ASSERTION 2022-05-25 [facility] 00:[facility]00 [facility] History SDOH [facility] Alcohol Comment Medical C enter Gender identity [facility] Sexual orientation [facility] History SDOH [facility] Alcohol Std Drinks Medica l Center History SDOH [facility] Alcohol Binge Medical Zay ter Exposure to 2022-07-05 2022-07-15 Not sure [facility] SARS-CoV-2 (event) 00:00:00 14:40:00 [facility] Tobacco use and 2021-10-07 2021-10-07 Smokeless Universit y of exposure 00:00:00 00:00:00 tobacco non-user [facility] Alcohol intake 2020-09-24 2020-09-24 Ex-drinker [facility] 00:[facility]00 (finding) [facility] Center History SDOH 2020-09-22 2020-09-[address] [facility] Alcohol Frequency 00:00:00 00:00:00 Medical Center History of Social 2019-01-02 2019-01-[address] function 00:00:00 00:00:00 Hospital Sex Assigned At [address] [facility] 00:[facility] Smoking Status Start Date Stop Date Source Never smoked tobacco [facility] Medications Ordered Filled Start Stop Current Ordering Indication Dosage Frequency Signature Comments Components Source Medication Medication Date Date Medication? Clinician (SIG) Name Name acetaminoph 2022- No 1000mg 1,000 mg, Univers en 10-19 Oral, ity of (TYLENOL) 02:00: 01:10 [place] dose, On Medical 1,000 mg [facility] 10/18/22 at 2100, Routine foLIC acid 2022- Yes [id number] 4mg Take 4 Univers 1 mg tablet 7-13 10-12 tablets by i ty of 00:00: 04:59 mouth in [place] 00 :00 [facility] for 90 days. foLIC acid 2022- Yes [id number] 4mg Take 4 Univers 1 mg tablet 7-13 10-12 tablets by i ty of 00:00: 04:59 mouth in [place] 00 :00 [facility] for 90 days. foLIC acid 2022- Yes [id number] 4mg Take 4 Univers 1 mg tablet 7-13 10-12 tablets by i ty of 00:00: 04:59 mouth in [place] 00 :00 [facility] for 90 days. foLIC acid 2022- Yes [id number] 4mg Take 4 Univers 1 mg tablet 7-13 10-12 tablets by i ty of 00:00: 04:59 mouth in [place] 00 :00 [facility] for 90 days. foLIC acid 2022- Yes [id number] 4mg Take 4 Univers 1 mg tablet 7-13 10-12 tablets by i ty of 00:00: 04:59 mouth in [place] 00 :00 [facility] for 90 days. foLIC acid 2022- Yes [id number] 4mg Take 4 Univers 1 mg tablet 7-13 10-12 tablets by i ty of 00:00: 04:59 mouth in [place] 00 :00 [facility] for 90 days. foLIC acid 2022- Yes [id number] 4mg Take 4 Univers 1 mg tablet 7-13 10-12 tablets by i ty of 00:00: 04:59 mouth in [place] 00 :00 [facility] for 90 days. foLIC acid 2022- Yes [id number] 4mg Take 4 Univers 1 mg tablet 7-13 10-12 tablets by i ty of 00:00: 04:59 mouth in [place] 00 :00 the Medical morning Branch for 90 days. foLIC acid 2022-2022- Yes [id number] 4mg Take 4 Univers 1 mg tablet 7-13 10-12 tablets by i ty of 00:00: 04:59 mouth in [place] 00 :00 the Medical morning Branch for 90 days. foLIC acid 2022- Yes [id number] 4mg Take 4 Univers 1 mg tablet 7-13 10-12 tablets by i ty of 00:00: 04:59 mouth in [place] 00 :00 the Medical morning Branch for 90 days. PNV 67-iron 2022- Yes [id number] 1{tbl} Take 1 Univers ps-folate 7-13 08-13 tablet by ity of no.1-dha 00:00: 04:59 mouth in [facility] (VITAFOL 00 :00 the Medical ULTRA) 29 morning Branch mg iron- 1 for 30 mg-200 mg days. Cap PNV 67-iron 2022- Yes [id number] 1{tbl} Take 1 Univers ps-folate 7-13 08-13 tablet by ity of no.1-dha 00:00: 04:59 mouth in [facility] (VITAFOL 00 :00 the Medical ULTRA) 29 morning Branch mg iron- 1 for 30 mg-200 mg days. Cap PNV 67-iron 2022-2022- Yes [id number] 1{tbl} Take 1 Univers ps-folate 7-13 08-13 tablet by ity of no.1-dha 00:00: 04:59 mouth in [facility] (VITAFOL 00 :00 the Medical ULTRA) 29 morning Branch mg iron- 1 for 30 mg-200 mg days. Cap PNV 67-iron 2022-0 2022- Yes [id number] 1{tbl} Take 1 Univers ps-folate 7-13 08-13 tablet by ity of no.1-dha 00:00: 04:59 mouth in [facility] (VITAFOL 00 :00 the Medical ULTRA) 29 morning Branch mg iron- 1 for 30 mg-200 mg days. Cap PNV 67-iron 2022-0 2022- Yes [id number] 1{tbl} Take 1 Univers ps-folate 7-13 08-13 tablet by ity of no.1-dha 00:00: 04:59 mouth in [facility] (VITAFOL 00 :00 the Medical ULTRA) 29 morning Branch mg iron- 1 for 30 mg-200 mg days. Cap PNV 67-iron 2022-0 2022- Yes [id number] 1{tbl} Take 1 Univers ps-folate 7-13 - tablet by ity of no.1-dha 00:00: 04:59 mouth in [facility] (VITAFOL 00 :00 the Medical ULTRA) 29 morning Branch mg iron- 1 for 30 mg-200 mg days. Cap PNV 67-iron 2022-0 2022- Yes [id number] 1{tbl} Take 1 Univers ps-folate 7-13 - tablet by ity of no.1-dha 00:00: 04:59 mouth in [facility] (VITAFOL 00 :00 the Medical ULTRA) 29 morning Branch mg iron- 1 for 30 mg-200 mg days. Cap PNV 67-iron 2022-0 2022- Yes [id number] 1{tbl} Take 1 Univers ps-folate 7-10-19 tablet by ity of no.1-dha 00:00: 04:59 mouth in [facility] (VITAFOL 00 :00 the Medical ULTRA) 29 morning Branch mg iron- 1 for 30 mg-200 mg days. Cap PNV 67-iron 2022-0 2022- Yes [id number] 1{tbl} Take 1 Univers ps-folate 7-13 - tablet by ity of no.1-dha 00:00: 04:59 mouth in [facility] (VITAFOL 00 :00 the Medical ULTRA) 29 morning Branch mg iron- 1 for 30 mg-200 mg days. Cap lamoTRIgine 2023-0 Yes [id number] 100mg Take 1 Univers (LAMICTAL) 6-16 tablet by ity of 100 mg 00:00: mouth in [place] tablet 00 the Medical morning. Branch lamoTRIgine 2023-0 Yes [id number] 100mg Take 1 Univers (LAMICTAL) 6-16 tablet by ity of 100 mg 00:00: mouth in [place] tablet 00 the Medical morning. Branch lamoTRIgine 2023-0 Yes [id number] 100mg Take 1 Univers (LAMICTAL) 6-16 tablet by ity of 100 mg 00:00: mouth in [place] tablet 00 the Medical morning. Branch lamoTRIgine 2023-0 Yes [id number] 100mg Take 1 Univers (LAMICTAL) 6-16 tablet by ity of 100 mg 00:00: mouth in [place] tablet 00 the Medical morning. Branch lamoTRIgine 2023-0 Yes [id number] 100mg Take 1 Univers (LAMICTAL) 6-16 tablet by ity of 100 mg 00:00: mouth in [place] tablet 00 the Medical morning. Branch lamoTRIgine 2023-0 Yes [id number] 100mg Take 1 Univers (LAMICTAL) 6-16 tablet by ity of 100 mg 00:00: mouth in [place] tablet 00 the Medical morning. Branch lamoTRIgine 3-0 Yes [id number] 100mg Take 1 Univers (LAMICTAL) 6-16 tablet by ity of 100 mg 00:00: mouth in [place] tablet 00 the Medical morning. Branch lamoTRIgine 2023-0 Yes [id number] 100mg Take 1 Univers (LAMICTAL) 6-16 tablet by ity of 100 mg 00:00: mouth in [place] tablet 00 the Medical morning. Branch lamoTRIgine 3-0 Yes [id number] 100mg Take 1 Univers (LAMICTAL) 6-16 tablet by ity of 100 mg 00:00: mouth in [place] tablet 00 the Medical morning. Branch lamoTRIgine 3-0 Yes [id number] 100mg Take 1 Univers (LAMICTAL) 6-16 tablet by ity of 100 mg 00:00: mouth in [place] tablet 00 the Medical morning. Branch lamoTRIgine 2023-0 Yes [id number] 100mg Take 1 Univers (LAMICTAL) 6-16 tablet by ity of 100 mg 00:00: mouth in [place] tablet 00 the Medical morning. Branch lamoTRIgine 3-0 Yes [id number] 100mg Take 1 Univers (LAMICTAL) 6-16 tablet by ity of 100 mg 00:00: mouth in [place] tablet 00 the Medical morning. Branch lamoTRIgine 2023-0 Yes [id number] 100mg Take 1 Univers (LAMICTAL) 6-16 tablet by ity of 100 mg 00:00: mouth in [place] tablet 00 the Medical morning. Branch lamoTRIgine 2023-0 Yes [id number] 100mg Take 1 Univers (LAMICTAL) 6-16 tablet by ity of 100 mg 00:00: mouth in [place] tablet 00 the Medical morning. Branch NaCl 0.9% 1000mL at 999 Uni vers (NS) bolus 07-15 05-09 mL/hr, ity of infusion 20:45: 21:40 1,000 mL, [place] 1,000 mL 00 :00 IV Medical Infusion, Branch ONCE, 1 dose, On Thu07/15/22 at 1545, STAT doxylamine- 0 Yes [id number] Day 1: Univers pyridoxine, 07-08 Take 2 ity of vit B6, 00:00: tablet [place] (DICLEGIS) 00 before Medical 10-10 mg bed. Day Branch per tablet 2: If still having nausea and vomiting 2 tablet bed. Day 3 take 1 tablet in am and 2 tablet at bed doxylamine- 0 Yes [id number] Day 1: Univers pyridoxine, 07-08 Take 2 ity of vit B6, 00:00: tablet [place] (DICLEGIS) 00 before Medical 10-10 mg bed. Day Branch per tablet 2: If still having nausea and vomiting 2 tablet bed. Day 3 take 1 tablet in am and 2 tablet at bed doxylamine- 2022-0 Yes [id number] Day 1: Univers pyridoxine, 07-08 Take 2 ity of vit B6, 00:00: tablet [place] (DICLEGIS) 00 before Medical 10-10 mg bed. Day Branch per tablet 2: If still having nausea and vomiting 2 tablet bed. Day 3 take 1 tablet in am and 2 tablet at bed doxylamine- 2022-0 Yes [id number] Day 1: Univers pyridoxine, 07-08 Take 2 ity of vit B6, 00:00: tablet [place] (DICLEGIS) 00 before Medical 10-10 mg bed. Day Branch per tablet 2: If still having nausea and vomiting 2 tablet bed. Day 3 take 1 tablet in am and 2 tablet at bed doxylamine- 2022-0 Yes [id number] Day 1: Univers pyridoxine, 07-08 Take 2 ity of vit B6, 00:00: tablet [place] (DICLEGIS) 00 before Medical 10-10 mg bed. Day Branch per tablet 2: If still having nausea and vomiting 2 tablet bed. Day 3 take 1 tablet in am and 2 tablet at bed doxylamine- 2023-0 Yes [id number] Day 1: Univers pyridoxine, 5-02 Take 2 ity of vit B6, 00:00: tablet [place] (DICLEGIS) 00 before Medical 10-10 mg bed. Day Branch per tablet 2: If still having nausea and vomiting 2 tablet bed. Day 3 take 1 tablet in am and 2 tablet at bed doxylamine- 2023-0 Yes [id number] Day 1: Univers pyridoxine, 5-02 Take 2 ity of vit B6, 00:00: tablet [place] (DICLEGIS) 00 before Medical 10-10 mg bed. Day Branch per tablet 2: If still having nausea and vomiting 2 tablet bed. Day 3 take 1 tablet in am and 2 tablet at bed doxylamine- 2023-0 Yes [id number] Day 1: Univers pyridoxine, 5- Take 2 ity of vit B6, 00:00: tablet [place] (DICLEGIS) 00 before Medical 10-10 mg bed. Day Branch per tablet 2: If still having nausea and vomiting 2 tablet bed. Day 3 take 1 tablet in am and 2 tablet at bed doxylamine- 2023-0 Yes [id number] Day 1: Univers pyridoxine, 5- Take 2 ity of vit B6, 00:00: tablet [place] (DICLEGIS) 00 before Medical 10-10 mg bed. Day Branch per tablet 2: If still having nausea and vomiting 2 tablet bed. Day 3 take 1 tablet in am and 2 tablet at bed doxylamine- 2023-0 Yes [id number] Day 1: Univers pyridoxine, 5-02 Take 2 ity of vit B6, 00:00: tablet [place] (DICLEGIS) 00 before Medical 10-10 mg bed. Day Branch per tablet 2: If still having nausea and vomiting 2 tablet bed. Day 3 take 1 tablet in am and 2 tablet at bed doxylamine- 2023-0 Yes [id number] Day 1: Univers pyridoxine, 5-02 Take 2 ity of vit B6, 00:00: tablet [place] (DICLEGIS) 00 before Medical 10-10 mg bed. Day Branch per tablet 2: If still having nausea and vomiting 2 tablet bed. Day 3 take 1 tablet in am and 2 tablet at bed doxylamine- 2023-0 Yes [id number] Day 1: Univers pyridoxine, 5-02 Take 2 ity of vit B6, 00:00: tablet [place] (DICLEGIS) 00 before Medical 10-10 mg bed. Day Branch per tablet 2: If still having nausea and vomiting 2 tablet bed. Day 3 take 1 tablet in am and 2 tablet at bed doxylamine- 2023-0 Yes [id number] Day 1: Univers pyridoxine, 5-02 Take 2 ity of vit B6, 00:00: tablet [place] (DICLEGIS) 00 before Medical 10-10 mg bed. Day Branch per tablet 2: If still having nausea and vomiting 2 tablet bed. Day 3 take 1 tablet in am and 2 tablet at bed doxylamine- 3-0 Yes [id number] Day 1: Univers pyridoxine, 5-02 Take 2 ity of vit B6, 00:00: tablet [place] (DICLEGIS) 00 before Medical 10-10 mg bed. Day Branch per tablet 2: If still having nausea and vomiting 2 tablet bed. Day 3 take 1 tablet in am and 2 tablet at bed doxylamine- 3-0 Yes [id number] Day 1: Univers pyridoxine, 5-02 Take 2 ity of vit B6, 00:00: tablet [place] (DICLEGIS) 00 before Medical 10-10 mg bed. Day Branch per tablet 2: If still having nausea and vomiting 2 tablet bed. Day 3 take 1 tablet in am and 2 tablet at bed doxylamine- 3-0 Yes [id number] Day 1: Univers pyridoxine, 5-02 Take 2 ity of vit B6, 00:00: tablet [place] (DICLEGIS) 00 before Medical 10-10 mg bed. Day Branch per tablet 2: If still having nausea and vomiting 2 tablet bed. Day 3 take 1 tablet in am and 2 tablet at bed doxylamine- 2023-0 Yes [id number] Day 1: Univers pyridoxine, 5-02 Take 2 ity of vit B6, 00:00: tablet [place] (DICLEGIS) 00 before Medical 10-10 mg bed. Day Branch per tablet 2: If still having nausea and vomiting 2 tablet bed. Day 3 take 1 tablet in am and 2 tablet at bed doxylamine- 2023-0 Yes [id number] Day 1: Univers pyridoxine, 5-02 Take 2 ity of vit B6, 00:00: tablet [place] (DICLEGIS) 00 before Medical 10-10 mg bed. Day Branch per tablet 2: If still having nausea and vomiting 2 tablet bed. Day 3 take 1 tablet in am and 2 tablet at bed doxylamine- 2022-0 Yes [id number] Day 1: Univers pyridoxine, 07-08 Take 2 ity of vit B6, 00:00: tablet [place] (DICLEGIS) 00 before Medical 10-10 mg bed. Day Branch per tablet 2: If still having nausea and vomiting 2 tablet bed. Day 3 take 1 tablet in am and 2 tablet at bed doxylamine- 2022-0 Yes [id number] Day 1: Univers pyridoxine, 07-08 Take 2 ity of vit B6, 00:00: tablet [place] (DICLEGIS) 00 before Medical 10-10 mg bed. Day Branch per tablet 2: If still having nausea and vomiting 2 tablet bed. Day 3 take 1 tablet in am and 2 tablet at bed doxylamine- 0 2022- No [id number] Day 1: Univers pyridoxine, 07-08 Take 2 ity o f vit B6, 00:00: 00:00 tablet [place] (DICLEGIS) 00 :00 before Medical 10-10 mg bed. Day Branch per tablet 2: If still having nausea and vomiting 2 tablet bed. Day 3 take 1 tablet in am and 2 tablet at bed proMETHazin 3-0 Yes [id number] 25mg Take 1 Univers e 25 mg 4-19 tablet by [facility] tablet 00:00: mouth [place] 00 every 6 Medical (six) Branch hours as needed for Nausea and Vomiting (N/V). proMETHazin 3-0 Yes [id number] 25mg Take 1 [facility] 25 mg 4-19 tablet by [facility] tablet 00:00: mouth [place] 00 every 6 Medical (six) Branch hours as needed for Nausea and Vomiting (N/V). proMETHazin 2023-0 Yes [id number] 25mg Take 1 [facility] 25 mg 4-19 tablet by [facility] tablet 00:00: mouth [place] 00 every 6 Medical (six) Branch hours as needed for Nausea and Vomiting (N/V). proMETHazin 2023-0 Yes [id number] 25mg Take 1 [facility] 25 mg 4-19 tablet by [facility] tablet 00:00: mouth [place] 00 every 6 Medical (six) Branch hours as needed for Nausea and Vomiting (N/V). proMETHazin 2023-0 Yes [id number] 25mg Take 1 [facility] 25 mg 4-19 tablet by [facility] tablet 00:00: mouth [place] 00 every 6 Medical (six) Branch hours as needed for Nausea and Vomiting (N/V). proMETHazin 2023-0 Yes [id number] 25mg Take 1 [facility] 25 mg 4-19 tablet by [facility] tablet 00:00: mouth [place] 00 every 6 Medical (six) Branch hours as needed for Nausea and Vomiting (N/V). proMETHazin 2023-0 Yes [id number] 25mg Take 1 [facility] 25 mg 4-19 tablet by [facility] tablet 00:00: mouth [place] 00 every 6 Medical (six) Branch hours as needed for Nausea and Vomiting (N/V). proMETHazin 2023-0 Yes [id number] 25mg Take 1 [facility] 25 mg 4-19 tablet by [facility] tablet 00:00: mouth [place] 00 every 6 Medical (six) Branch hours as needed for Nausea and Vomiting (N/V). proMETHazin 2023-0 Yes [id number] 25mg Take 1 [facility] 25 mg 4-19 tablet by [facility] of tablet 00:00: mouth [place] 00 every 6 Medical (six) Branch hours as needed for Nausea and Vomiting (N/V). proMETHazin 2023-0 Yes [id number] 25mg Take 1 [facility] 25 mg 4-19 tablet by [facility] tablet 00:00: mouth [place] 00 every 6 Medical (six) Branch hours as needed for Nausea and Vomiting (N/V). proMETHazin 2023-0 Yes [id number] 25mg Take 1 [facility] 25 mg 4-19 tablet by [facility] tablet 00:00: mouth [place] 00 every 6 Medical (six) Branch hours as needed for Nausea and Vomiting (N/V). proMETHazin 2023-0 Yes [id number] 25mg Take 1 [facility] 25 mg 4-19 tablet by [facility] tablet 00:00: mouth [place] 00 every 6 Medical (six) Branch hours as needed for Nausea and Vomiting (N/V). proMETHazin 2023-0 Yes [id number] 25mg Take 1 [facility] 25 mg 4-19 tablet by [facility] tablet 00:00: mouth [place] 00 every 6 Medical (six) Branch hours as needed for Nausea and Vomiting (N/V). proMETHazin 2023-0 Yes [id number] 25mg Take 1 [facility] 25 mg 4-19 tablet by [facility] tablet 00:00: mouth [place] 00 every 6 Medical (six) Branch hours as needed for Nausea and Vomiting (N/V). proMETHazin 2023-0 Yes [id number] 25mg Take 1 [facility] 25 mg 4-19 tablet by [facility] tablet 00:00: mouth [place] 00 every 6 Medical (six) Branch hours as needed for Nausea and Vomiting (N/V). proMETHazin 2023-0 Yes [id number] 25mg Take 1 [facility] 25 mg 4-19 tablet by [facility] tablet 00:00: mouth [place] 00 every 6 Medical (six) Branch hours as needed for Nausea and Vomiting (N/V). proMETHazin 2023-0 Yes [id number] 25mg Take 1 [facility] 25 mg 4-19 tablet by [facility] tablet 00:00: mouth [place] 00 every 6 Medical (six) Branch hours as needed for Nausea and Vomiting (N/V). proMETHazin 2023-0 Yes [id number] 25mg Take 1 [facility] 25 mg 4-19 tablet by [facility] of tablet 00:00: mouth [place] 00 every 6 Medical (six) Branch hours as needed for Nausea and Vomiting (N/V). proMETHazin 2023-0 Yes [id number] 25mg Take 1 [facility] 25 mg 4-19 tablet by [facility] tablet 00:00: mouth [place] 00 every 6 Medical (six) Branch hours as needed for Nausea and Vomiting (N/V). proMETHazin 2023-0 Yes [id number] 25mg Take 1 [facility] 25 mg 4-19 tablet by [facility] tablet 00:00: mouth [place] 00 every 6 Medical (six) Branch hours as needed for Nausea and Vomiting (N/V). proMETHazin 2023-0 Yes [id number] 25mg Take 1 [facility] 25 mg 4-19 tablet by [facility] tablet 00:00: mouth [place] 00 every 6 Medical (six) Branch hours as needed for Nausea and Vomiting (N/V). proMETHazin 2023-0 Yes [id number] 25mg Take 1 [facility] 25 mg 4-19 tablet by [facility] of tablet 00:00: mouth [place] 00 every 6 Medical (six) Branch hours as needed for Nausea and Vomiting (N/V). proMETHazin 3-0 Yes [id number] 25mg Take 1 [facility] 25 mg 4-19 tablet by [facility] of tablet 00:00: mouth [place] 00 every 6 Medical (six) Branch hours as needed for Nausea and Vomiting (N/V). proMETHazin 2022-0 2023- No [id number] 25mg Take 1 [facility] 25 mg 4-19 07-13 tablet by [facility] of tablet 00:00: 00:00 mouth [place] 00 :00 every 6 Medical (six) Branch hours as needed for Nausea and Vomiting (N/V). foLIC acid 2022-3- No [id number] 4mg Take 4 [facility] 1 mg tablet 4-17 10-15 tablets by i ty of 00:00: 04:59 mouth in [place] 00 :00 the Medical morning Branch for 180 days. foLIC acid 2022-0 3- No [id number] 4mg Take 4 [facility] 1 mg tablet 4-17 10-15 tablets by i ty of 00:00: 04:59 mouth in [place] 00 :00 the Medical morning Branch for 180 days. foLIC acid 2022-0 2022- No [id number] 4mg Take 4 [facility] 1 mg tablet 4-17 10-15 tablets by i ty of 00:00: 04:59 mouth in [place] 00 :00 the [facility] morning Branch for 180 days. foLIC acid 2022-0 2022- No [id number] 4mg Take 4 [facility] 1 mg tablet 4-17 10-15 tablets by i ty of 00:00: 04:59 mouth in [place] 00 :00 the [facility] morning Branch for 180 days. foLIC acid 2022-0 2022- No [id number] 4mg Take 4 [facility] 1 mg tablet 4-17 10-15 tablets by i ty of 00:00: 04:59 mouth in [place] 00 :00 the Medical morning Branch for 180 days. foLIC acid 2022-0 3- No [id number] 4mg Take 4 [facility] 1 mg tablet 4-17 10-15 tablets by i ty of 00:00: 04:59 mouth in [place] 00 :00 the Medical morning Branch for 180 days. foLIC acid 2022-0 3- No [id number] 4mg Take 4 [facility] 1 mg tablet 4-17 10-15 tablets by i ty of 00:00: 04:59 mouth in [place] 00 :00 the Medical morning Branch for 180 days. foLIC acid 2022-0 2022- No [id number] 4mg Take 4 [facility] 1 mg tablet 4-17 10-15 tablets by i ty of 00:00: 04:59 mouth in [place] 00 :00 the Medical morning Branch for 180 days. foLIC acid 2022-0 3- No [id number] 4mg Take 4 [facility] 1 mg tablet 4-17 10-15 tablets by i ty of 00:00: 04:59 mouth in [place] 00 :00 the Medical morning Branch for 180 days. foLIC acid 2022-0 2022- No [id number] 4mg Take 4 [facility] 1 mg tablet 4-17 10-15 tablets by i ty of 00:00: 04:59 mouth in [place] 00 :00 the [facility] morning Branch for 180 days. foLIC acid 0 2022- No [id number] 4mg Take 4 [facility] 1 mg tablet 4-17 10-15 tablets by i ty of 00:: 04:59 mouth in [place] 00 :00 the [facility] morning [place] for 180 days. foLIC acid 2022-0 2022- No [id number] 4mg Take 4 [facility] 1 mg tablet 4-17 10-15 tablets by i ty of 00:: 04:59 mouth in [place] 00 :00 the [facility] morning Branch for 180 days. foLIC acid 2022-0 2022- No [id number] 4mg Take 4 [facility] 1 mg tablet 4-17 10-15 tablets by i ty of 00:00: 04:59 mouth in [place] 00 :00 the [facility] morning Branch for 180 days. foLIC acid 2022-0 3- No [id number] 4mg Take 4 [facility] 1 mg tablet 4-17 10-15 tablets by i ty of 00:00: 04:59 mouth in [place] 00 :00 the Medical morning Branch for 180 days. foLIC acid 2022-0 3- No [id number] 4mg Take 4 [facility] 1 mg tablet 4-17 10-15 tablets by i ty of 00:00: 04:59 mouth in [place] 00 :00 the [facility] morning Branch for 180 days. foLIC acid 2022-0 3- No [id number] 4mg Take 4 [facility] 1 mg tablet 4-17 10-15 tablets by i ty of 00:00: 04:59 mouth in [place] 00 :00 the [facility] morning Branch for 180 days. foLIC acid 2022-2022- No [id number] 4mg Take 4 [facility] 1 mg tablet 4-17 10-15 tablets by i ty of 00:00: 04:59 mouth in [place] 00 :00 the [facility] morning Branch for 180 days. foLIC acid 2022-2022- No [id number] 4mg Take 4 [facility] 1 mg tablet 4-17 10-15 tablets by i ty of 00:00: 04:59 mouth in [place] 00 :00 the [facility] morning Branch for 180 days. foLIC acid 2022-2022- No [id number] 4mg Take 4 [facility] 1 mg tablet 4-17 10-15 tablets by i ty of 00:00: 04:59 mouth in [place] 00 :00 the [facility] morning Branch for 180 days. foLIC acid 2022-2022- No [id number] 4mg Take 4 [facility] 1 mg tablet 4-17 10-15 tablets by i ty of 00:00: 04:59 mouth in [place] 00 :00 the [facility] morning Branch for 180 days. foLIC acid 2022- No [id number] 4mg Take 4 [facility] 1 mg tablet 4-17 10-15 tablets by i ty of 00:00: 04:59 mouth in [place] 00 :00 the [facility] morning Branch for 180 days. foLIC acid 2022-0 2022- No [id number] 4mg Take 4 [facility] 1 mg tablet 4-17 10-15 tablets by i ty of 00:00: 04:59 mouth in [place] 00 :00 the [facility] Branch for 180 days. foLIC acid 2022-0 2022- No [id number] 4mg Take 4 [facility] 1 mg tablet 4-17 10-15 tablets by i ty of 00:00: 04:59 mouth in [place] 00 :00 the [facility] morning Branch for 180 days. foLIC acid 2022-0 2022- No [id number] 4mg Take 4 [facility] 1 mg tablet 4-17 10-15 tablets by i ty of 00:00: 04:59 mouth in [place] 00 :00 the [facility] morning Branch for 180 days. foLIC acid 2022-0 2022- No [id number] 4mg Take 4 [facility] 1 mg tablet 4-17 10-15 tablets by i ty of 00:00: 04:59 mouth in [place] 00 :00 the [facility] morning Branch for 180 days. foLIC acid 2022-0 2022- No [id number] 4mg Take 4 [facility] 1 mg tablet 4-17 10-15 tablets by i ty of 00:00: 04:59 mouth in [place] 00 :00 the Medical morning Branch for 180 days. foLIC acid 2022- No [id number] 4mg Take 4 [facility] 1 mg tablet 4-17 10-15 tablets by i ty of 00:00: 04:59 mouth in [place] 00 :00 the Medical morning Branch for 180 days. foLIC acid 2022- No [id number] 4mg Take 4 [facility] 1 mg tablet 4-17 10-15 tablets by i ty of 00:00: 04:59 mouth in [place] 00 :00 the Medical morning Branch for 180 days. foLIC acid 2022- No [id number] 4mg Take 4 [facility] 1 mg tablet 4-17 10-15 tablets by i ty of 00:00: 04:59 mouth in [place] 00 :00 the Medical morning Branch for 180 days. foLIC acid 2022- No [id number] 4mg Take 4 [facility] 1 mg tablet 4-17 10-15 tablets by i ty of 00:00: 04:59 mouth in [place] 00 :00 the Medical morning Branch for 180 days. foLIC acid 2022- No [id number] 4mg Take 4 [facility] 1 mg tablet 4-17 10-15 tablets by i ty of 00:00: 04:59 mouth in [place] 00 :00 the Medical morning Branch for 180 days. foLIC acid 2022- No [id number] 4mg Take 4 [facility] 1 mg tablet 4-17 10-15 tablets by i ty of 00:00: 04:59 mouth in [place] 00 :00 the Medical morning Branch for 180 days. foLIC acid 2022- No [id number] 4mg Take 4 [facility] 1 mg tablet 4-17 10-15 tablets by i ty of 00:00: 04:59 mouth in [place] 00 :00 the Medical morning Branch for 180 days. foLIC acid 2022- No [id number] 4mg Take 4 [facility] 1 mg tablet 4-17 10-15 tablets by i ty of 00:00: 04:59 mouth in [place] 00 :00 the Medical morning Branch for 180 days. 2022-0 Yes [id number] 1{tbl} Take 1 U nivers multivitami 4-11 tablet by ity of n ( 00:00: mouth in [place] VITAMIN) 00 the Medical tablet morning. [place] Yes [id number] 1{tbl} Take 1 U nivers multivitami 4-11 tablet by ity of n ( 00:00: mouth in [place] VITAMIN) 00 the Medical tablet morning. Branch Yes [id number] 1{tbl} Take 1 [facility] nivers multivitami 4-11 tablet by ity of n ( 00:00: mouth in [place] VITAMIN) 00 the Medical tablet morning. Branch Yes [id number] 1{tbl} Take 1 [facility] nivers multivitami 4-11 tablet by ity of n ( 00:00: mouth in [place] VITAMIN) 00 the Medical tablet morning. [place] Yes [id number] 1{tbl} Take 1 [facility] nivers multivitami 4-11 tablet by ity of n ( 00:00: mouth in [place] VITAMIN) 00 the Medical tablet morning. [place] Yes [id number] 1{tbl} Take 1 [facility] nivers multivitami 4-11 tablet by ity of n ( 00:00: mouth in [place] VITAMIN) 00 the Medical tablet morning. [place] Yes [id number] 1{tbl} Take 1 [facility] nivers multivitami 4-11 tablet by ity of n ( 00:00: mouth in [place] VITAMIN) 00 the Medical tablet morning. [place] Yes [id number] 1{tbl} Take 1 [facility] nivers multivitami 4-11 tablet by ity of n ( 00:00: mouth in [place] VITAMIN) 00 the Medical tablet morning. [place] Yes [id number] 1{tbl} Take 1 [facility] nivers multivitami 4-11 tablet by ity of n ( 00:00: mouth in [place] VITAMIN) 00 the Medical tablet morning. [place] Yes [id number] 1{tbl} Take 1 [facility] nivers multivitami 4-11 tablet by ity of n ( 00:00: mouth in [place] VITAMIN) 00 the Medical tablet morning. [place] Yes [id number] 1{tbl} Take 1 U nivers multivitami 4-11 tablet by ity of n ( 00:00: mouth in [place] VITAMIN) 00 the Medical tablet morning. [place] Yes [id number] 1{tbl} Take 1 U nivers multivitami 4-11 tablet by ity of n ( 00:00: mouth in [place] VITAMIN) 00 the Medical tablet morning. [place] Yes [id number] 1{tbl} Take 1 [facility] nivers multivitami 4-11 tablet by ity of n ( 00:00: mouth in [place] VITAMIN) 00 the Medical tablet morning. [place] Yes [id number] 1{tbl} Take 1 [facility] nivers multivitami 4-11 tablet by ity of n ( 00:00: mouth in [place] VITAMIN) 00 the Medical tablet morning. [place] Yes [id number] 1{tbl} Take 1 [facility] nivers multivitami 4-11 tablet by ity of n ( 00:00: mouth in [place] VITAMIN) 00 the Medical tablet morning. [place] Yes [id number] 1{tbl} Take 1 [facility] nivers multivitami 4-11 tablet by ity of n ( 00:00: mouth in [place] VITAMIN) 00 the Medical tablet morning. [place] Yes [id number] 1{tbl} Take 1 [facility] nivers multivitami 4-11 tablet by ity of n ( 00:00: mouth in [place] VITAMIN) 00 the Medical tablet morning. [place] Yes [id number] 1{tbl} Take 1 [facility] nivers multivitami 4-11 tablet by ity of n ( 00:00: mouth in [place] VITAMIN) 00 the Medical tablet morning. [place] Yes [id number] 1{tbl} Take 1 [facility] nivers multivitami 4-11 tablet by ity of n ( 00:00: mouth in [place] VITAMIN) 00 the Medical tablet morning. [place] Yes [id number] 1{tbl} Take 1 [facility] nivers multivitami 4-11 tablet by ity of n ( 00:00: mouth in [place] VITAMIN) 00 the Medical tablet morning. [place] Yes [id number] 1{tbl} Take 1 [facility] nivers multivitami 4-11 tablet by ity of n ( 00:00: mouth in [place] VITAMIN) 00 the Medical tablet morning. [place] Yes [id number] 1{tbl} Take 1 U nivers multivitami 4-11 tablet by ity of n ( 00:00: mouth in [place] VITAMIN) 00 the Medical tablet morning. [place] Yes [id number] 1{tbl} Take 1 [facility] nivers multivitami 4-11 tablet by ity of n ( 00:00: mouth in [place] VITAMIN) 00 the Medical tablet morning. [place] Yes [id number] 1{tbl} Take 1 [facility] nivers multivitami 4-11 tablet by ity of n ( 00:00: mouth in [place] VITAMIN) 00 the Medical tablet morning. [place] Yes [id number] 1{tbl} Take 1 U nivers multivitami 4-11 tablet by ity of n ( 00:00: mouth in [place] VITAMIN) 00 the Medical tablet morning. [place] Yes [id number] 1{tbl} Take 1 U nivers multivitami 4-11 tablet by ity of n ( 00:00: mouth in [place] VITAMIN) 00 the Medical tablet morning. [place] Yes [id number] 1{tbl} Take 1 [facility] nivers multivitami 4-11 tablet by ity of n ( 00:00: mouth in [place] VITAMIN) 00 the Medical tablet morning. [place] Yes [id number] 1{tbl} Take 1 [facility] nivers multivitami 4-11 tablet by ity of n ( 00:00: mouth in [place] VITAMIN) 00 the Medical tablet morning. [place] Yes [id number] 1{tbl} Take 1 [facility] nivers multivitami 4-11 tablet by ity of n ( 00:00: mouth in [place] VITAMIN) 00 the Medical tablet morning. [place] Yes [id number] 1{tbl} Take 1 [facility] nivers multivitami 4-11 tablet by ity of n ( 00:00: mouth in [place] VITAMIN) 00 the Medical tablet morning. [facility] 3-0 2023- No [id number] 1{tbl} Take 1 [facility] multivitami 4-11 07-13 tablet by it y of n ( 00:00: 00:00 mouth in [place] VITAMIN) 00 :00 the Medical tablet morning. Branch gabapentin 2022-0 Yes TAKE 1 Unive rs 300 mg 3-15 CAPSULE BY ity of capsule 00:00: [place]OUTH [place]CE [place] 00 DAILY Medical NEEDED FOR Branch PANIC ATTACKS DULoxetine 3-0 Yes 60mg Take 1 Unive rs 60 mg 3-15 capsule by ity of capsule 00:00: mouth in [place] 00 the Medical morning. Branch gabapentin 3-0 Yes TAKE 1 Unive rs 300 mg 3-15 CAPSULE BY ity of capsule 00:00: MOUTH ONCE [place] 00 DAILY Medical NEEDED FOR Branch PANIC ATTACKS DULoxetine 3-0 Yes 60mg Take 1 Unive rs 60 mg 3-15 capsule by ity of capsule 00:00: mouth in [place] 00 the Medical morning. Branch gabapentin 3-0 Yes TAKE 1 Unive rs 300 mg 3-15 CAPSULE BY ity of capsule 00:00: MOUTH ONCE [place] 00 DAILY Medical NEEDED FOR Branch PANIC ATTACKS DULoxetine 3-0 Yes 60mg Take 1 Unive rs 60 mg 3-15 capsule by ity of capsule 00:00: mouth in [place] 00 the Medical morning. Branch gabapentin 3-0 Yes TAKE 1 Unive rs 300 mg 3-15 CAPSULE BY ity of capsule 00:00: MOUTH ONCE [place] 00 DAILY Medical NEEDED FOR Branch PANIC ATTACKS DULoxetine 3-0 Yes 60mg Take 1 Unive rs 60 mg 3-15 capsule by ity of capsule 00:00: mouth in [place] 00 the Medical morning. Branch gabapentin 3-0 Yes TAKE 1 Unive rs 300 mg 3-15 CAPSULE BY ity of capsule 00:00: MOUTH [place]CE [place] 00 DAILY Medical NEEDED FOR Branch PANIC ATTACKS DULoxetine 2023-0 Yes 60mg Take 1 Unive rs 60 mg 3-15 capsule by ity of capsule 00:00: mouth in [place] [id number] the Medical morning. Branch gabapentin 2023-0 Yes TAKE 1 Unive rs 300 mg 3-15 CAPSULE BY ity of capsule 00:00: [place]OUTH [place]CE [place] 00 DAILY Medical NEEDED FOR Branch PANIC ATTACKS DULoxetine 2023-0 Yes 60mg Take 1 Unive rs 60 mg 3-15 capsule by ity of capsule 00:00: mouth in [place] the Medical morning. Branch gabapentin 2023-0 Yes TAKE 1 Unive rs 300 mg 3-15 CAPSULE BY ity of capsule 00:00: [place]TH [place]CE [place] 00 DAILY Medical NEEDED FOR Branch PANIC ATTACKS DULoxetine 2023-0 Yes 60mg Take 1 Unive rs 60 mg 3-15 capsule by ity of capsule 00:00: mouth in [place] the Medical morning. Branch gabapentin 2023-0 Yes TAKE 1 Unive rs 300 mg 3-15 CAPSULE BY ity of capsule 00:00: MOUTH [place]CE [place] 00 DAILY Medical NEEDED FOR Branch PANIC ATTACKS DULoxetine 2023-0 Yes 60mg Take 1 Unive rs 60 mg 3-15 capsule by ity of capsule 00:00: mouth in [place] the Medical morning. Branch gabapentin 2023-0 Yes TAKE 1 Unive rs 300 mg 3-15 CAPSULE BY ity of capsule 00:00: [place]OUTH [place]CE [place] 00 DAILY Medical NEEDED FOR Branch PANIC ATTACKS DULoxetine 2023-0 Yes 60mg Take 1 Unive rs 60 mg 3-15 capsule by ity of capsule 00:00: mouth in [place] the Medical morning. Branch gabapentin 2023-0 Yes TAKE 1 Unive rs 300 mg 3-15 CAPSULE BY ity of capsule 00:00: [place]OUTH [place]CE [place] 00 DAILY Medical NEEDED FOR Branch PANIC ATTACKS DULoxetine 2023-0 Yes 60mg Take 1 Unive rs 60 mg 3-15 capsule by ity of capsule 00:00: mouth in [place] the Medical morning. Branch gabapentin 2023-0 Yes TAKE 1 Unive rs 300 mg 3-15 CAPSULE BY ity of capsule 00:00: [place]TH [place]CE [place] 00 DAILY Medical NEEDED FOR Branch PANIC ATTACKS DULoxetine 2023-0 Yes 60mg Take 1 Unive rs 60 mg 3-15 capsule by ity of capsule 00:00: mouth in [place] the Medical morning. Branch gabapentin 2023-0 Yes TAKE 1 Unive rs 300 mg 3-15 CAPSULE BY ity of capsule 00:00: [place]OUTH [place]CE [place] 00 DAILY Medical NEEDED FOR Branch PANIC ATTACKS DULoxetine 2023-0 Yes 60mg Take 1 Unive rs 60 mg 3-15 capsule by ity of capsule 00:00: mouth in [place] the Medical morning. Branch gabapentin 2023-0 Yes TAKE 1 Unive rs 300 mg 3-15 CAPSULE BY ity of capsule 00:00: [place]OUTH [place]CE [place] 00 DAILY Medical NEEDED FOR Branch PANIC ATTACKS DULoxetine 2023-0 Yes 60mg Take 1 Unive rs 60 mg 3-15 capsule by ity of capsule 00:00: mouth in [place] the Medical morning. Branch gabapentin 2023-0 Yes TAKE 1 Unive rs 300 mg 3-15 CAPSULE BY ity of capsule 00:00: MOUTH [place]CE [place] 00 DAILY Medical NEEDED FOR Branch PANIC ATTACKS DULoxetine 2023-0 Yes 60mg Take 1 Unive rs 60 mg 3-15 capsule by ity of capsule 00:00: mouth in [place] the Medical morning. Branch gabapentin 2023-0 Yes TAKE 1 Unive rs 300 mg 3-15 CAPSULE BY ity of capsule 00:00: [place]OUTH [place]CE [place] 00 DAILY Medical NEEDED FOR Branch PANIC ATTACKS DULoxetine 2023-0 Yes 60mg Take 1 Unive rs 60 mg 3-15 capsule by ity of capsule 00:00: mouth in [place] the Medical morning. Branch gabapentin 3-0 Yes TAKE 1 Unive rs 300 mg 3-15 CAPSULE BY ity of capsule 00:00: MOUTH [place]CE [place] 00 DAILY Medical NEEDED FOR Branch PANIC ATTACKS DULoxetine 2023-0 Yes 60mg Take 1 Unive rs 60 mg 3-15 capsule by ity of capsule 00:00: mouth in [place] the Medical morning. Branch gabapentin 2023-0 Yes TAKE 1 Unive rs 300 mg 3-15 CAPSULE BY ity of capsule 00:00: MOUTH [place]CE [place] 00 DAILY Medical NEEDED FOR Branch PANIC ATTACKS DULoxetine 2023-0 Yes 60mg Take 1 Unive rs 60 mg 3-15 capsule by ity of capsule 00:00: mouth in [place] the Medical morning. Branch gabapentin 2023-0 Yes TAKE 1 Unive rs 300 mg 3-15 CAPSULE BY ity of capsule 00:00: MOUTH [place]CE [place] 00 DAILY Medical NEEDED FOR Branch PANIC ATTACKS DULoxetine 2023-0 Yes 60mg Take 1 Unive rs 60 mg 3-15 capsule by ity of capsule 00:00: mouth in [place] 00 the Medical morning. Branch gabapentin 2023-0 Yes TAKE 1 Unive rs 300 mg 3-15 CAPSULE BY ity of capsule 00:00: MOUTH ONCE [place] 00 DAILY Medical NEEDED FOR Branch PANIC ATTACKS DULoxetine 2023-0 Yes 60mg Take 1 Unive rs 60 mg 3-15 capsule by ity of capsule 00:00: mouth in [place] 00 the Medical morning. Branch gabapentin 2023-0 Yes TAKE 1 Unive rs 300 mg 3-15 CAPSULE BY ity of capsule 00:00: MOUTH [place]CE [place] 00 DAILY Medical NEEDED FOR Branch PANIC ATTACKS DULoxetine 2023-0 Yes 60mg Take 1 Unive rs 60 mg 3-15 capsule by ity of capsule 00:00: mouth in [place] the Medical morning. Branch gabapentin 2023-0 Yes TAKE 1 Unive rs 300 mg 3-15 CAPSULE BY ity of capsule 00:00: MOUTH ONCE [place] 00 DAILY Medical NEEDED FOR Branch PANIC ATTACKS DULoxetine 3-0 Yes 60mg Take 1 Unive rs 60 mg 3-15 capsule by ity of capsule 00:00: mouth in [place] the Medical morning. Branch gabapentin 2023-0 Yes TAKE 1 Unive rs 300 mg 3-15 CAPSULE BY ity of capsule 00:00: MOUTH ONCE [place] 00 DAILY Medical NEEDED FOR Branch PANIC ATTACKS DULoxetine 3-0 Yes 60mg Take 1 Unive rs 60 mg 3-15 capsule by ity of capsule 00:00: mouth in [place] the Medical morning. Branch gabapentin 3-0 Yes TAKE 1 Unive rs 300 mg 3-15 CAPSULE BY ity of capsule 00:00: MOUTH [place]CE [place] 00 DAILY Medical NEEDED FOR Branch PANIC ATTACKS DULoxetine 2023-0 Yes 60mg Take 1 Unive rs 60 mg 3-15 capsule by ity of capsule 00:00: mouth in [place] the Medical morning. Branch gabapentin 2023-0 Yes TAKE 1 Unive rs 300 mg 3-15 CAPSULE BY ity of capsule 00:00: MOUTH [place]CE [place] 00 DAILY Medical NEEDED FOR Branch PANIC ATTACKS DULoxetine 2023-0 Yes 60mg Take 1 Unive rs 60 mg 3-15 capsule by ity of capsule 00:00: mouth in [place] the Medical morning. Branch gabapentin 2023-0 Yes TAKE 1 Unive rs 300 mg 3-15 CAPSULE BY ity of capsule 00:00: MOUTH [place]CE [place] 00 DAILY Medical NEEDED FOR Branch PANIC ATTACKS DULoxetine 2023-0 Yes 60mg Take 1 Unive rs 60 mg 3-15 capsule by ity of capsule 00:00: mouth in [place] the Medical morning. Branch gabapentin 2023-0 Yes TAKE 1 Unive rs 300 mg 3-15 CAPSULE BY ity of capsule 00:00: MOUTH [place]CE [place] 00 DAILY Medical NEEDED FOR Branch PANIC ATTACKS DULoxetine 2023-0 Yes 60mg Take 1 Unive rs 60 mg 3-15 capsule by ity of capsule 00:00: mouth in [place] the Medical morning. Branch gabapentin 2023-0 Yes TAKE 1 Unive rs 300 mg 3-15 CAPSULE BY ity of capsule 00:00: MOUTH [place]CE [place] 00 DAILY Medical NEEDED FOR Branch PANIC ATTACKS DULoxetine 2023-0 Yes 60mg Take 1 Unive rs 60 mg 3-15 capsule by ity of capsule 00:00: mouth in [place] the Medical morning. Branch gabapentin 2023-0 Yes TAKE 1 Unive rs 300 mg 3-15 CAPSULE BY ity of capsule 00:00: MOUTH [place]CE [place] 00 DAILY Medical NEEDED FOR Branch PANIC ATTACKS DULoxetine 2023-0 Yes 60mg Take 1 Unive rs 60 mg 3-15 capsule by ity of capsule 00:00: mouth in [place] the Medical morning. Branch gabapentin 2023-0 Yes TAKE 1 Unive rs 300 mg 3-15 CAPSULE BY ity of capsule 00:00: M[place]TH [place]CE [place] 00 DAILY Medical NEEDED FOR Branch PANIC ATTACKS DULoxetine 2023-0 Yes 60mg Take 1 Unive rs 60 mg 3-15 capsule by ity of capsule 00:00: mouth in [place] the Medical morning. Branch gabapentin 2023-0 Yes TAKE 1 Unive rs 300 mg 3-15 CAPSULE BY ity of capsule 00:00: MOUTH [place]CE [place] 00 DAILY Medical NEEDED FOR Branch PANIC ATTACKS DULoxetine 2023-0 Yes 60mg Take 1 Unive rs 60 mg 3-15 capsule by ity of capsule 00:00: mouth in [place] the Medical morning. Branch DULoxetine 2023-0 Yes 60mg Take 1 Unive rs 60 mg 3-15 capsule by ity of capsule 00:00: mouth in [place] the Medical morning. Branch DULoxetine 2023-0 Yes 60mg Take 1 Unive rs 60 mg 3-15 capsule by ity of capsule 00:00: mouth in [place] the Medical morning. Branch DULoxetine 2023-0 Yes 60mg Take 1 Unive rs 60 mg 3-15 capsule by ity of capsule 00:00: mouth in [place] the Medical morning. Branch DULoxetine 2023-0 Yes 60mg Take 1 Unive rs 60 mg 3-15 capsule by ity of capsule 00:00: mouth in [place] the morning. Branch DULoxetine 2023-0 Yes 60mg Take 1 Unive rs 60 mg 3-15 capsule by ity of capsule 00:00: mouth in [place] the morning. Branch DULoxetine 2023-0 Yes 60mg Take 1 Unive rs 60 mg 3-15 capsule by ity of capsule 00:00: mouth in [place] the morning. Branch DULoxetine 2023-0 Yes 60mg Take 1 Unive rs 60 mg 3-15 capsule by ity of capsule 00:00: mouth in [place] the morning. Branch DULoxetine 2023-0 Yes 60mg Take 1 Unive rs 60 mg 3-15 capsule by ity of capsule 00:00: mouth in [place] the morning. Branch DULoxetine 2023-0 Yes 60mg Take 1 Unive rs 60 mg 3-15 capsule by ity of capsule 00:00: mouth in [place] the morning. Branch DULoxetine 2023-0 Yes 60mg Take 1 Unive rs 60 mg 3-15 capsule by ity of capsule 00:00: mouth in [place] the morning. Branch gabapentin 3-0 2022- No TAKE 1 Univ ers 300 mg 3-15 07-13 CAPSULE BY ity of capsule 00:00: 00:00 MOUTH ONCE [place] as 00 :00 DAILY Medical NEEDED FOR [place] PANIC ATTACKS dexmethylph 3-0 Yes TAKE 1 Univ ers enidate 20 3-14 CAPSULE BY ity of mg 24 hr 00:00: MOUTH [place] capsule 00 EVERY DAY Medical IN THE [place] MORNING FOR 30 DAYS dexmethylph 3-0 Yes TAKE 1 Univ ers enidate 20 3-14 CAPSULE BY ity of mg 24 hr 00:00: MOUTH [place] capsule 00 EVERY DAY Medical IN THE [place] MORNING FOR 30 DAYS dexmethylph 3-0 Yes TAKE 1 Univ ers enidate 20 3-14 CAPSULE BY ity of mg 24 hr 00:00: MOUTH [place] capsule 00 EVERY DAY Medical IN THE [place] MORNING FOR 30 DAYS dexmethylph 3-0 Yes TAKE 1 Univ ers enidate 20 3-14 CAPSULE BY ity of mg 24 hr 00:00: MOUTH [place] capsule 00 EVERY DAY Medical IN THE [facility] FOR 30 DAYS dexmethylph 3-0 Yes TAKE 1 Univ ers enidate 20 3-14 CAPSULE BY ity of mg 24 hr 00:00: MOUTH [place] capsule 00 EVERY DAY Medical IN THE [facility] FOR 30 DAYS dexmethylph 3-0 Yes TAKE 1 Univ ers enidate 20 3-14 CAPSULE BY ity of mg 24 hr 00:00: MOUTH [place] capsule 00 EVERY DAY Medical IN THE [place] MORNING FOR 30 DAYS dexmethylph 2022-0 Yes TAKE 1 Univ ers enidate 20 3-14 CAPSULE BY ity of mg 24 hr 00:00: MOUTH [place] capsule 00 EVERY DAY Medical IN THE [facility] FOR 30 DAYS dexmethylph 2022-0 Yes TAKE 1 Univ ers enidate 20 3-14 CAPSULE BY ity of mg 24 hr 00:00: MOUTH [place] capsule 00 EVERY DAY Medical IN THE [facility] FOR 30 DAYS dexmethylph 2022-0 Yes TAKE 1 Univ ers enidate 20 3-14 CAPSULE BY ity of mg 24 hr 00:00: MOUTH [place] capsule 00 EVERY DAY Medical IN THE [facility] FOR 30 DAYS dexmethylph 2022-0 Yes TAKE 1 Univ ers enidate 20 3-14 CAPSULE BY ity of mg 24 hr 00:00: MOUTH [place] capsule 00 EVERY DAY Medical IN THE [facility] FOR 30 DAYS dexmethylph 2022-0 Yes TAKE 1 Univ ers enidate 20 3-14 CAPSULE BY ity of mg 24 hr 00:00: MOUTH [place] capsule 00 EVERY DAY Medical IN THE [facility] FOR 30 DAYS dexmethylph 3-0 Yes TAKE 1 Univ ers enidate 20 3-14 CAPSULE BY ity of mg 24 hr 00:00: MOUTH [place] capsule 00 EVERY DAY Medical IN THE [facility] FOR 30 DAYS dexmethylph 3-0 Yes TAKE 1 Univ ers enidate 20 3-14 CAPSULE BY ity of mg 24 hr 00:00: MOUTH [place] capsule 00 EVERY DAY Medical IN THE [facility] FOR 30 DAYS dexmethylph 3-0 Yes TAKE 1 Univ ers enidate 20 3-14 CAPSULE BY ity of mg 24 hr 00:00: MOUTH [place] capsule 00 EVERY DAY Medical IN THE [facility] FOR 30 DAYS dexmethylph 3-0 Yes TAKE 1 Univ ers enidate 20 3-14 CAPSULE BY ity of mg 24 hr 00:00: MOUTH [place] capsule 00 EVERY DAY Medical IN THE [facility] FOR 30 DAYS dexmethylph 3-0 Yes TAKE 1 Univ ers enidate 20 3-14 CAPSULE BY ity of mg 24 hr 00:00: MOUTH [place] capsule 00 EVERY DAY Medical IN THE [place] MORNING FOR 30 DAYS dexmethylph 3-0 Yes TAKE 1 Univ ers enidate 20 3-14 CAPSULE BY ity of mg 24 hr 00:00: MOUTH [place] capsule 00 EVERY DAY Medical IN THE [place] MORNING FOR 30 DAYS dexmethylph 3-0 Yes TAKE 1 Univ ers enidate 20 3-14 CAPSULE BY ity of mg 24 hr 00:00: MOUTH [place] capsule 00 EVERY DAY Medical IN THE [place] MORNING FOR 30 DAYS dexmethylph 2022-0 Yes TAKE 1 Univ ers enidate 20 3-14 CAPSULE BY ity of mg 24 hr 00:00: MOUTH [place] capsule 00 EVERY DAY Medical IN THE [place] MORNING FOR 30 DAYS dexmethylph 2022-0 Yes TAKE 1 Univ ers enidate 20 3-14 CAPSULE BY ity of mg 24 hr 00:00: MOUTH [place] capsule 00 EVERY DAY Medical IN THE [facility] FOR 30 DAYS dexmethylph 2022-0 Yes TAKE 1 Univ ers enidate 20 3-14 CAPSULE BY ity of mg 24 hr 00:00: MOUTH [place] capsule 00 EVERY DAY Medical IN THE [facility] FOR 30 DAYS dexmethylph 2022-0 Yes TAKE 1 Univ ers enidate 20 3-14 CAPSULE BY ity of mg 24 hr 00:00: MOUTH [place] capsule 00 EVERY DAY Medical IN THE [facility] FOR 30 DAYS dexmethylph 3-0 Yes TAKE 1 Univ ers enidate 20 3-14 CAPSULE BY ity of mg 24 hr 00:00: MOUTH [place] capsule 00 EVERY DAY Medical IN THE [facility] FOR 30 DAYS dexmethylph 3-0 Yes TAKE 1 Univ ers enidate 20 3-14 CAPSULE BY ity of mg 24 hr 00:00: MOUTH [place] capsule 00 EVERY DAY Medical IN THE [facility] FOR 30 DAYS dexmethylph 3-0 Yes TAKE 1 Univ ers enidate 20 3-14 CAPSULE BY ity of mg 24 hr 00:00: MOUTH [place] capsule 00 EVERY DAY Medical IN THE [place] MORNING FOR 30 DAYS dexmethylph 3-0 Yes TAKE 1 Univ ers enidate 20 3-14 CAPSULE BY ity of mg 24 hr 00:00: MOUTH [place] capsule 00 EVERY DAY Medical IN THE [facility] FOR 30 DAYS dexmethylph 3-0 Yes TAKE 1 Univ ers enidate 20 3-14 CAPSULE BY ity of mg 24 hr 00:00: MOUTH [place] capsule 00 EVERY DAY Medical IN THE [facility] FOR 30 DAYS dexmethylph 3-0 Yes TAKE 1 Univ ers enidate 20 3-14 CAPSULE BY ity of mg 24 hr 00:00: MOUTH [place] capsule 00 EVERY DAY Medical IN THE [place] MORNING FOR 30 DAYS dexmethylph 2022-0 Yes TAKE 1 Univ ers enidate 20 3-14 CAPSULE BY ity of mg 24 hr 00:00: MOUTH [place] capsule 00 EVERY DAY Medical IN THE [place] MORNING FOR 30 DAYS dexmethylph 2022-0 Yes TAKE 1 Univ ers enidate 20 3-14 CAPSULE BY ity of mg 24 hr 00:00: MOUTH [place] capsule 00 EVERY DAY Medical IN THE [place] MORNING FOR 30 DAYS dexmethylph 2022-0 Yes TAKE 1 Univ ers enidate 20 3-14 CAPSULE BY ity of mg 24 hr 00:00: MOUTH [place] capsule 00 EVERY DAY Medical IN THE [facility] FOR 30 DAYS dexmethylph 3-0 Yes TAKE 1 Univ ers enidate 20 3-14 CAPSULE BY ity of mg 24 hr 00:00: MOUTH [place] capsule 00 EVERY DAY Medical IN THE [facility] FOR 30 DAYS dexmethylph 3-0 Yes TAKE 1 Univ ers enidate 20 3-14 CAPSULE BY ity of mg 24 hr 00:00: MOUTH [place] capsule 00 EVERY DAY Medical IN THE [facility] FOR 30 DAYS dexmethylph 3-0 Yes TAKE 1 Univ ers enidate 20 3-14 CAPSULE BY ity of mg 24 hr 00:00: MOUTH [place] capsule 00 EVERY DAY Medical IN THE [facility] FOR 30 DAYS dexmethylph 3-0 Yes TAKE 1 Univ ers enidate 20 3-14 CAPSULE BY ity of mg 24 hr 00:00: MOUTH [place] capsule 00 EVERY DAY Medical IN THE [facility] FOR 30 DAYS dexmethylph 3-0 Yes TAKE 1 Univ ers enidate 20 3-14 CAPSULE BY ity of mg 24 hr 00:00: MOUTH [place] capsule 00 EVERY DAY Medical IN THE [place] MORNING FOR 30 DAYS dexmethylph 2023-0 Yes TAKE 1 Univ ers enidate 20 3-14 CAPSULE BY ity of mg 24 hr 00:00: MOUTH [place] capsule 00 EVERY DAY Medical IN THE [facility] FOR 30 DAYS dexmethylph 2023-0 Yes TAKE 1 Univ ers enidate 20 3-14 CAPSULE BY ity of mg 24 hr 00:00: MOUTH [place] capsule 00 EVERY DAY Medical IN THE Branch MORNING FOR 30 DAYS dexmethylph Yes TAKE 1 Univ ers enidate 20 3-14 CAPSULE BY ity of mg 24 hr 00:00: MOUTH [place] capsule 00 EVERY DAY Medical IN THE [place] MORNING FOR 30 DAYS dexmethylph Yes TAKE 1 Univ ers enidate 20 3-14 CAPSULE BY ity of mg 24 hr 00:00: MOUTH [place] capsule 00 EVERY DAY Medical IN THE [place] MORNING FOR 30 DAYS ketorolac 2021-03- No 30mg 30 mg, Unive rs (TORADOL) 04-20 Slow IV ity of injection 00:15: 23:30 Push, [place] 30 mg 00 :00 ONCE, 1 Medical dose, On [facility] 02/16/22 at 1815, SHAYNA FENTanyl PF 2021-03 No 75ug 75 mcg, Un aubree (SUBLIMAZE 04-19 Slow IV ity o f (PF)) 23:15: 22:46 Push, [place] injection 00 :00 ONCE, 1 Medical 75 mcg dose, On [facility] 02/16/22 at 1715, STAT iopamidol 2021-03- No [id number] 74mL 74 mL, U nivers (ISOVUE 04-19 Intravenou ity o f 370-500 mL) 21:00: 21:15 s, ONCE, 1 [place] injection 00 :00 dose, On Medica l 74 mL [facility] 02/16/22 at 1515, Routine metoclopram 2021-03 Yes [id number] 10mg Take 1 Univers arabella HCl 10 2-11 tablet by ity of mg tablet 00:00: mouth [place] 00 every 6 Medical (six) Branch hours. metoclopram 2021-03 Yes [id number] 10mg Take 1 Univers arabella HCl 10 2-11 tablet by ity of mg tablet 00:00: mouth [place] 00 every 6 Medical (six) Branch hours. metoclopram 2021-03 Yes [id number] 10mg Take 1 Univers arabella HCl 10 2-11 tablet by ity of mg tablet 00:00: mouth [place] 00 every 6 Medical (six) Branch hours. metoclopram 2021-03 Yes [id number] 10mg Take 1 Univers ar[place] HCl 10 2-11 tablet by ity of mg tablet 00:00: mouth [place] 00 every 6 Medical (six) Branch hours. metoclopram 2021-03 Yes [id number] 10mg Take 1 Univers ar[place] HCl 10 2-11 tablet by ity of mg tablet 00:00: mouth [place] 00 every 6 Medical (six) Branch hours. metoclopram 2021-03 Yes [id number] 10mg Take 1 Univers [place] HCl 10 2-11 tablet by ity of mg tablet 00:00: mouth [place] 00 every 6 Medical (six) Branch hours. metoclopram 2021-03 Yes [id number] 10mg Take 1 Univers [place] HCl 10 2-11 tablet by ity of mg tablet 00:00: mouth [place] 00 every 6 Medical (six) Branch hours. metoclopram 2021-03 Yes [id number] 10mg Take 1 Univers [place] HCl 10 2-11 tablet by ity of mg tablet 00:00: mouth [place] 00 every 6 Medical (six) Branch hours. metoclopram 2021-03- No [id number] 10mg Take 1 Univers ar[place] HCl 10 [...] Until Discontinu ed, Routine docusate 2021-03 Yes [id number] 200mg Take 2 U nivers 100 mg 2-07 capsules ity of capsule 00:00: by mouth [place] 00 once daily Medical as needed Branch for Constipati on. ferrous 2021-03 Yes [id number] 325mg Take 1 Un [facility] sulfate 325 2-07 tablet by ity of mg (65 mg 00:00: mouth [place] iron) 00 every Medical tablet other day. Branch ibuprofen 2021-03 Yes [id number] 600mg Take 1 Univers 600 mg 2-07 tablet by ity of tablet 00:00: mouth [place] 00 every 6 Medical (six) Branch hours as needed (Pain). Take with food or milk. polyethylen 2021-03 Yes 17g 17 g, Unive rs e glycol 2-07 Oral, ity of 3350 powder 00:00: DAILY, [place] riddle 17 g 00 First dose Medical on [facility] Branch 02/11/22 at 1800, Until Discontinu ed, Routine docusate 2021-03 Yes [id number] 200mg Take 2 U nivers 100 mg 2-07 capsules ity of capsule 00:00: by mouth [place] 00 once daily Medical as needed Branch for Constipati on. ferrous 2021-03 Yes [id number] 325mg Take 1 Un [place] sulfate 325 2-07 tablet by ity of mg (65 mg 00:00: mouth [place] iron) 00 every Medical tablet other day. Branch ibuprofen 2021-03 Yes [id number] 600mg Take 1 Univers 600 mg 2-07 tablet by ity of tablet 00:00: mouth [place] 00 every 6 Medical (six) Branch hours as needed (Pain). Take with food or milk. docusate 2021-03 Yes [id number] 200mg Take 2 U nivers 100 mg 2-07 capsules ity of capsule 00:00: by mouth [place] 00 once daily Medical as needed Branch for Constipati on. ferrous 2021-03 Yes [id number] 325mg Take 1 Un [place] sulfate 325 2-07 tablet by ity of mg (65 mg 00:00: mouth [place] iron) 00 every Medical tablet other day. Branch ibuprofen 2021-03 Yes [id number] 600mg Take 1 Univers 600 mg 2-07 tablet by ity of tablet 00:00: mouth [place] 00 every 6 Medical (six) Branch hours as needed (Pain). Take with food or milk. docusate 2021-03 Yes [id number] 200mg Take 2 U nivers 100 mg 2-07 capsules ity of capsule 00:00: by mouth [place] 00 once daily Medical as needed Branch for Constipati on. ferrous 2021-03 Yes [id number] 325mg Take 1 Un [place] sulfate 325 2-07 tablet by ity of mg (65 mg 00:00: mouth [place] iron) 00 every Medical tablet other day. Branch ibuprofen 2021-03 Yes [id number] 600mg Take 1 Univers 600 mg 2-07 tablet by ity of tablet 00:00: mouth [place] 00 every 6 Medical (six) Branch hours as needed (Pain). Take with food or milk. docusate 2021-03 Yes [id number] 200mg Take 2 U nivers 100 mg 2-07 capsules ity of capsule 00:00: by mouth [place] 00 once daily Medical as needed Branch for Constipati on. ferrous 2021-03 Yes [id number] 325mg Take 1 Un [place] sulfate 325 2-07 tablet by ity of mg (65 mg 00:00: mouth [place] iron) 00 every Medical tablet other day. Branch ibuprofen 2021-03 Yes [id number] 600mg Take 1 Univers 600 mg 2-07 tablet by ity of tablet 00:00: mouth [place] 00 every 6 Medical (six) Branch hours as needed (Pain). Take with food or milk. docusate 2021-03 Yes [id number] 200mg Take 2 U nivers 100 mg 2-07 capsules ity of capsule 00:00: by mouth [place] 00 once daily Medical as needed Branch for Constipati on. ferrous 2021-03 Yes [id number] 325mg Take 1 Un [place] sulfate 325 2-07 tablet by ity of mg (65 mg 00:00: mouth [place] iron) 00 every Medical tablet other day. Branch ibuprofen 2021-03 Yes [id number] 600mg Take 1 Univers 600 mg 2-07 tablet by ity of tablet 00:00: mouth [place] 00 every 6 Medical (six) Branch hours as needed (Pain). Take with food or milk. docusate 2021-03 Yes [id number] 200mg Take 2 U nivers 100 mg 2-07 capsules ity of capsule 00:00: by mouth [place] 00 once daily Medical as needed Branch for Constipati on. ferrous 2021-03 Yes [id number] 325mg Take 1 Un [place] sulfate 325 2-07 tablet by ity of mg (65 mg 00:00: mouth [place] iron) 00 every Medical tablet other day. Branch ibuprofen 2021-03 Yes [id number] 600mg Take 1 Univers 600 mg 2-07 tablet by ity of tablet 00:00: mouth [place] 00 every 6 Medical (six) Branch hours as needed (Pain). Take with food or milk. docusate 2021-03 Yes [id number] 200mg Take 2 U nivers 100 mg 2-07 capsules ity of capsule 00:00: by mouth [place] 00 once daily Medical as needed Branch for Constipati on. ferrous 2021-03 Yes [id number] 325mg Take 1 [facility] [place] sulfate 325 2-07 tablet by ity of mg (65 mg 00:00: mouth [place] iron) 00 every Medical tablet other day. Branch ibuprofen 2021-03 Yes [id number] 600mg Take 1 Univers 600 mg 2-07 tablet by ity of tablet 00:00: mouth [place] 00 every 6 Medical (six) Branch hours as needed (Pain). Take with food or milk. docusate 2021-03 Yes [id number] 200mg Take 2 U nivers 100 mg 2-07 capsules ity of capsule 00:00: by mouth [place] 00 once daily Medical as needed Branch for Constipati on. ferrous 2021-03 Yes [id number] 325mg Take 1 Un [place] sulfate 325 2-07 tablet by ity of mg (65 mg 00:00: mouth [place] iron) 00 every Medical tablet other day. Branch ibuprofen 2021-03 Yes [id number] 600mg Take 1 Univers 600 mg 2-07 tablet by ity of tablet 00:00: mouth [place] 00 every 6 Medical (six) Branch hours as needed (Pain). Take with food or milk. docusate 2021-03 Yes [id number] 200mg Take 2 U nivers 100 mg 2-07 capsules ity of capsule 00:00: by mouth [place] 00 once daily Medical as needed Branch for Constipati on. ferrous 2021-03 Yes [id number] 325mg Take 1 [facility] [place] sulfate 325 2-07 tablet by ity of mg (65 mg 00:00: mouth [place] iron) 00 every Medical tablet other day. Branch ibuprofen 2021-03 Yes [id number] 600mg Take 1 Univers 600 mg 2-07 tablet by ity of tablet 00:00: mouth [place] 00 every 6 Medical (six) Branch hours as needed (Pain). Take with food or milk. docusate 2021-03- No [id number] 200mg Take 2 Univers 100 mg 2-07 04-11 capsules ity of capsule 00:00: 00:00 by mouth [place] 00 :00 once daily Medical as needed Branch for Constipati on. ferrous 2021-03- No [id number] 325mg Take 1 U nivers sulfate 325 2-07 04-11 tablet by it y of mg (65 mg 00:00: 00:00 mouth [place] iron) 00 :00 every Medical tablet other day. Branch ibuprofen 2021-03- No [id number] 600mg Take 1 Univers 600 mg 2-07 04-11 tablet by ity of tablet 00:00: 00:00 mouth [place] 00 :00 every 6 Medical (six) Branch hours as needed (Pain). Take with food or milk. foLIC acid 2021-03- No [id number] 1mg Take 1 Univers 1 mg tablet 04-15 tablet by it y of 00:00: 05:59 mouth in [place] 00 :00 the Medical morning Branch for 90 days. foLIC acid 2021-03- No [id number] 1mg Take 1 Univers 1 mg tablet 04-15- tablet by it y of 00:00: 05:59 mouth in [place] 00 :00 the [facility] morning Branch for 90 days. foLIC acid 2021-03- No [id number] 1mg Take 1 Univers 1 mg tablet 04-15 tablet by it y of 00:00: 05:59 mouth in [place] 00 :00 the [facility] Branch for 90 days. foLIC acid 2021-03- No [id number] 1mg Take 1 Univers 1 mg tablet 04-15 tablet by it y of 00:00: 05:59 mouth in [place] 00 :00 the [facility] Branch for 90 days. foLIC acid 2021-03- No [id number] 1mg Take 1 Univers 1 mg tablet 04-15 tablet by it y of 00:00: 05:59 mouth in [place] 00 :00 the [facility] Branch for 90 days. foLIC acid 2021-03- No [id number] 1mg Take 1 Univers 1 mg tablet 04-15- tablet by it y of 00:00: 05:59 mouth in [place] 00 :00 the [facility] Branch for 90 days. foLIC acid 2021-03- No [id number] 1mg Take 1 Univers 1 mg tablet 04-15- tablet by it y of 00:00: 05:59 mouth in [place] 00 :00 the [facility] Branch for 90 days. foLIC acid 2021-03- No [id number] 1mg Take 1 Univers 1 mg tablet 04-15- tablet by it y of 00:00: 05:59 mouth in [place] 00 :00 the [facility] Branch for 90 days. foLIC acid 2021-03- No [id number] 1mg Take 1 Univers 1 mg tablet 04-15-08 tablet by it y of 00:00: 05:59 mouth in [place] 00 :00 the Branch for 90 days. ibuprofen 2021-03 Yes 600mg 600 mg, Univ ers (IBU) 2-06 Oral, ity of tablet 600 19:22: Q6HPRN, [place] mg 45 Starting Medical on Thu02/11/22 at 1322, Until Discontinu ed, Routine, Pain (scale 4-6) acetaminoph 2021-03 Yes 650mg 650 mg, Un [facility] en 2-06 Oral, ity of (TYLENOL) 19:22: Q6HPRN, [place] tablet 650 45 Starting Medic al mg on Thu02/11/22 at 1322, Until Discontinu ed, Routine, Pain (scale 1-3) diphenhydrA 2021-03 Yes 25mg 25 mg, Univ ers MINE 2-06 Oral, ity of (BENADRYL) 19:22: Q6HPRN, [place] tablet 25 45 Starting Medica l mg on Thu02/11/22 at 1322, Until Discontinu ed, Routine, Sleep, Itching ondansetron 2021-03 Yes 4mg 4 mg, Slow Univers (ZOFRAN 2-06 IV Push, ity of (PF)) 19:22: Q8HPRN, [place] injection 4 45 Starting Medi tressa mg on Thu02/11/22 at 1322, Until Discontinu ed, Routine, Nausea [...] QDAILYPRN, [place] mg 45 Starting Medical on Thu02/11/22 at 1322, Until Discontinu ed, Routine, Constipati on magnesium 2021-03 Yes 30mL 30 mL, Univer s hydroxide 2-06 Oral, ity of (MILK OF 19:22: QDAILYPRN, [place] MAGNESIA) 45 Starting Medica l 400 mg/5 mL on Thu Branch suspension 02/11/22 at 30 mL 1322, Until Discontinu ed, Routine, Constipati on benzocaine- 2021-03 Yes Topical, [facility] menthol 04-14 PRN, ity of (DERMOPLAST 19:22: Starting [place] ) 20-0.5 % 44 on Thu Medical topical 02/11/22 at Branch spray 1322, Until Discontinu ed, Routine, Perineum discomfort oxytocin 2021-03- No 300mL/h 300 mL/hr, Univers (PITOCIN) 04-14 IV ity of 30 units in 16:59: 19:22 Infusion, [place] NS 500 mL 29 :49 SEE-INSTRU Medi tressa IV infusion CTIONS, Branc h Starting on Thu02/11/[address] art at 300 mL/hr for 1 hr then 150 mL/hr for 1 hr. & nbsp; For post delivery uterotonic
PIB 2021-03- No Epidural, Univers ropivacaine 04-14 CONTINUOUS i ty of 0.2 % 16:30: 18:20 PRN, [place] (NAROPIN 00 :56 Starting Medical (PF)) on Thu [place] epidural 02/11/22 at infusion 1030, Until Thu02/11/22 at 1220, Routine, Intra-op bupivacaine 2021-03- No Caudal Uni vers (preserv 04-14 Block, ity of free) 15:33: 18:20 ONCE INTRA [place] (SENSORCAIN 00 :56 PROCEDURE, Me dical E MPF) 0.25 Starting Bran ch % (2.5 on Thu mg/mL) 02/11/22 at injection 0933, Until Thu02/11/22 at 1220, Routine, Intra-op lamoTRIgine 2021-03 Yes 75mg 75 mg, Univ ers (LAMICTAL) 04-14 Oral, ity of tablet 75 13:30: QAM-0730, [place] mg 00 First dose Medical on [facility] Branch 02/11/22 at 0730, Until Discontinu ed, Routine ondansetron 2021-03- No 4mg 4 mg, Slow Univers (ZOFRAN 04-14 IV Push, ity of (PF)) 12:40: 12:44 ONCE, On [place] injection 4 00 :00 Tue Medical mg 02/11/22 at Branch 0645, For 1 dose
Do ses of ondansetro n 16 mg and above need to be administer ed via IV piggyback. For Dose >=24mg ECG monitoring is advisable.
ropivacaine 2021-03 No Epidural, Univers 0.2 % 04-14 CONTINUOUS ity of (NAROPIN 06:45: 18:20 PRN, [place] (PF)) 00 :56 Starting Medical epidural on Thu Branch infusion 02/11/22 at 0045, Until Discontinu ed, Routine, Intra-op lactated 2021-03 No 500mL at 999 Unive rs ringers IV 04-14 mL/hr, 500 it y of infusion 06:45: 06:16 mL, IV [place] 500 mL 00 :00 Infusion, Medical ONCE, 1 Branch dose, On e 02/11/22 at 0045, Routine lidocaine-e 2021-03 No Intraderma Univers pinephrine 04-14 l, ONCE ity o f (XYLOCAINE 06:40: 18:20 INTRA [place] W/EPINEPHRI 00 :56 PROCEDURE, [place]) 1.5 Starting Branch %-1:200,000 on Tue injection 02/11/22 at 0040, Until Discontinu ed, Routine, Intra-op sodium 2021-03 No 30mL 30 mL, Univers citrate-cit 04-14 Oral, ity of keila acid 05:55: 06:16 PRE-PROCED [place] (BICITRA) 08 :00 URE ONCE, Medic al 500-334 1 dose, Branch mg/5 mL Starting solution 30 on Thu mL 02/10/22 at 2355, Until e 02/11/22 at 0016, Routine, Surgery/Pr ocedure lamoTRIgine 2021-03 Yes 100mg 100 mg, Un [facility] (LAMICTAL) 2-06 Oral, QHS, ity of tablet 100 03:00: First dose [place] mg 00 on [facility] Medical 02/10/22 at Branch 2100, Until Discontinu ed, Routine proMETHazin 2021-03- No 25mg 25 mg, IV Univers e 04-14- Piggyback, ity of (PHENERGAN) 00:45: 00:59 at 200 [place] 25 mg in [place] 00 :00 mL/hr Medical 50 mL IV Administer Branc h piggyback over 15 (CNR) Minutes, ONCE, 1 dose, On [facility] 02/10/22 at 1845, Routine butorphanol 2021-03- No 1mg 1 mg, Univ ers (STADOL) 04-14 Intravenou ity of injection 1 00:45: 00:09 s, ONCE, 1 [place] mg 00 :00 dose, On Medical [facility] Branch 02/10/22 at 1845, Routine oxytocin 2021-03- No 2mU/min at 2-40 Un [facility] (PITOCIN) 04-14- mL/hr, IV ity of 30 units in 00:02: 19:22 Infusion, [place] NS 500 mL 47 :49 TITRATE, Medica l IV infusion Starting Bran ch on Thu02/10/22 at 1802, Until Thu02/11/22 at 1322, SHAYNA [id number] IV 2021-03- No 1000mL at 1-125 U nivers infusion 04-13- mL/hr, IV ity o f 1,000 mL 22:58: 19:22 Infusion, [place] as 45 :49 TITRATE, Medical Starting Branch on Thu02/10/22 at 1658, Until Thu02/11/22 at 1322, Routine lamoTRIgine 2021-03- No 100mg Take 100 Univers 100 mg 2-05 12-05 mg by ity of tablet 17:04: 00:00 mouth at [place] 29 :[address] lamoTRIgine 2021-03- No 100mg Take 100 Univers 100 mg 2-05 12-05 mg by ity of tablet 17:04: 00:00 mouth at [place] 29 :[address] Branch 2021-03 Yes 1{tbl} 1 tablet, Un aubree [...] On [place] 01/30/22 at 1645, SHAYNA magnesium 2021-03 No [...] 18:07: mouth at [place] tablet [address] lamoTRIgine 2021-03 Yes 100mg Take 100 U nivers (LAMICTAL) 1-24 mg by ity of 100 mg 18:07: mouth at [place] tablet [address] lamoTRIgine 2021-03 Yes 100mg Take 100 U nivers (LAMICTAL) 1-24 mg by ity of 100 mg 18:07: mouth at [place] tablet [address] lamoTRIgine 2021-03 Yes 100mg Take 100 U nivers (LAMICTAL) 1-24 mg by ity of 100 mg 18:07: mouth at [place] tablet [address] lamoTRIgine 2021-03 Yes 100mg Take 100 U nivers (LAMICTAL) 1-24 mg by ity of 100 mg 18:07: mouth at [place] tablet [address] proMETHazin 2021-03 Yes [id number] 25mg Take 1 Univers e 25 mg 1-15 tablet by ity of tablet 00:00: mouth [place] 00 every 4 Medical (four) Branch hours as needed for Nausea and Vomiting (N/V). proMETHazin 2021-03 Yes [id number] 25mg Take 1 Univers e 25 mg 1-15 tablet by ity of tablet 00:00: mouth [place] 00 every 4 Medical (four) Branch hours as needed for Nausea and Vomiting (N/V). proMETHazin 2021-03 Yes [id number] 25mg Take 1 Univers e 25 mg 1-15 tablet by ity of tablet 00:00: mouth [place] 00 every 4 Medical (four) Branch hours as needed for Nausea and Vomiting (N/V). proMETHazin 2021-03 Yes [id number] 25mg Take 1 [facility] 25 mg 1-15 tablet by [facility] of tablet 00:00: mouth [place] 00 every 4 Medical (four) Branch hours as needed for Nausea and Vomiting (N/V). proMETHazin 2021-03 Yes [id number] 25mg Take 1 [facility] 25 mg 1-15 tablet by [facility] of tablet 00:00: mouth [place] 00 every 4 Medical (four) Branch hours as needed for Nausea and Vomiting (N/V). proMETHazin 2021-03 Yes [id number] 25mg Take 1 [facility] 25 mg 1-15 tablet by [facility] of tablet 00:00: mouth [place] 00 every 4 Medical (four) Branch hours as needed for Nausea and Vomiting (N/V). proMETHazin 2021-03 Yes [id number] 25mg Take 1 [facility] 25 mg 1-15 tablet by [facility] of tablet 00:00: mouth [place] 00 every 4 Medical (four) Branch hours as needed for Nausea and Vomiting (N/V). proMETHazin 2021-03 Yes [id number] 25mg Take 1 [facility] 25 mg 1-15 tablet by [facility] of tablet 00:00: mouth [place] 00 every 4 Medical (four) Branch hours as needed for Nausea and Vomiting (N/V). proMETHazin 2021-03 Yes [id number] 25mg Take 1 [facility] 25 mg 1-15 tablet by [facility] of tablet 00:00: mouth [place] 00 every 4 Medical (four) Branch hours as needed for Nausea and Vomiting (N/V). proMETHazin 2021-03- No [id number] 25mg Take 1 [facility] e 25 mg 1-15 12-05 tablet by ity of tablet 00:00: 00:00 mouth [place] 00 :00 every 4 Medical (four) Branch hours as needed for Nausea and Vomiting (N/V). proMETHazin 2021-03- No [id number] 25mg Take 1 [facility] 25 mg 1-15 12-05 tablet by ity of tablet 00:00: 00:00 mouth [place] 00 :00 every 4 Medical (four) Branch hours as needed for Nausea and Vomiting (N/V). lamoTRIgine 2021-03 Yes [id number] 75mg Take 3 [facility] 25 mg 1-10 tablets by ity of tablet 00:00: mouth [place] 00 every Medical morning. Branch lamoTRIgine 2021-03 Yes [id number] 100mg Take 1 [facility] (LAMICTAL) 1-10 tablet by ity of 100 mg 00:00: mouth at [place] tablet 00 bedtime. [facility] lamoTRIgine 2021-03 Yes [id number] 75mg Take 3 [facility] 25 mg 1-10 tablets by ity of tablet 00:00: mouth [place] 00 every Medical morning. Branch lamoTRIgine 2021-03 Yes [id number] 100mg Take 1 [facility] (LAMICTAL) 1-10 tablet by ity of 100 mg 00:00: mouth at [place] tablet 00 bedtime. [facility] lamoTRIgine 2021-03 Yes [id number] 75mg Take 3 [facility] 25 mg 1-10 tablets by ity of tablet 00:00: mouth [place] 00 every Medical morning. Branch lamoTRIgine 2021-03 Yes [id number] 100mg Take 1 [facility] (LAMICTAL) 1-10 tablet by ity of 100 mg 00:00: mouth at [place] tablet 00 bedtime. [facility] lamoTRIgine 2021-03 Yes [id number] 75mg Take 3 [facility] 25 mg 1-10 tablets by ity of tablet 00:00: mouth [place] 00 every Medical morning. Branch lamoTRIgine 2021-03 Yes [id number] 100mg Take 1 [facility] (LAMICTAL) 1-10 tablet by ity of 100 mg 00:00: mouth at [place] tablet 00 bedtime. [facility] lamoTRIgine 2021-03 Yes [id number] 75mg Take 3 [facility] 25 mg 1-10 tablets by ity of tablet 00:00: mouth [place] 00 every Medical morning. Branch lamoTRIgine 2021-03 Yes [id number] 100mg Take 1 [facility] (LAMICTAL) 1-10 tablet by ity of 100 mg 00:00: mouth at [place] tablet 00 bedtime. Medical Branch lamoTRIgine 2021-03 Yes [id number] 75mg Take 3 [facility] 25 mg 1-10 tablets by ity of tablet 00:00: mouth [place] 00 every Medical morning. Branch lamoTRIgine 2021-03 Yes [id number] 100mg Take 1 [facility] (LAMICTAL) 1-10 tablet by ity of 100 mg 00:00: mouth at [place] tablet 00 bedtime. Medical Branch lamoTRIgine 2021-03 Yes [id number] 75mg Take 3 [facility] 25 mg 1-10 tablets by ity of tablet 00:00: mouth [place] 00 every Medical morning. Branch lamoTRIgine 2021-03 Yes [id number] 100mg Take 1 [facility] (LAMICTAL) 1-10 tablet by ity of 100 mg 00:00: mouth at [place] tablet 00 bedtime. Medical Branch lamoTRIgine 2021-03 Yes [id number] 75mg Take 3 [facility] 25 mg 1-10 tablets by ity of tablet 00:00: mouth [place] 00 every Medical morning. Branch lamoTRIgine 2021-03 Yes [id number] 100mg Take 1 [facility] (LAMICTAL) 1-10 tablet by ity of 100 mg 00:00: mouth at [place] tablet 00 bedtime. Medical Branch lamoTRIgine 2021-03 Yes [id number] 75mg Take 3 [facility] 25 mg 1-10 tablets by ity of tablet 00:00: mouth [place] 00 every Medical morning. Branch lamoTRIgine 2021-03 Yes [id number] 100mg Take 1 [facility] (LAMICTAL) 1-10 tablet by ity of 100 mg 00:00: mouth at [place] tablet 00 bedtime. Medical Branch lamoTRIgine 2021-03 Yes [id number] 75mg Take 3 [facility] 25 mg 1-10 tablets by [facility]y of tablet 00:00: mouth [place] 00 every Medical morning. Branch lamoTRIgine 2021-03 Yes [id number] 100mg Take 1 [facility] (LAMICTAL) 1-10 tablet by ity of 100 mg 00:00: mouth at [place] tablet 00 bedtime. Medical Branch lamoTRIgine 2021-03 Yes [id number] 75mg Take 3 [facility] 25 mg 1-10 tablets by [facility]y of tablet 00:00: mouth [place] 00 every Medical morning. Branch lamoTRIgine 2021-03 Yes [id number] 100mg Take 1 [facility] (LAMICTAL) 1-10 tablet by ity of 100 mg 00:00: mouth at [place] tablet 00 bedtime. Medical Branch lamoTRIgine 2021-03 Yes [id number] 75mg Take 3 [facility] 25 mg 1-10 tablets by ity of tablet 00:00: mouth [place] 00 every Medical morning. Branch lamoTRIgine 2021-03 Yes [id number] 100mg Take 1 [facility] (LAMICTAL) 1-10 tablet by ity of 100 mg 00:00: mouth at [place] tablet 00 bedtime. [facility] lamoTRIgine 2021-03 Yes [id number] 75mg Take 3 [facility] 25 mg 1-10 tablets by ity of tablet 00:00: mouth [place] 00 every Medical morning. Branch lamoTRIgine 2021-03 Yes [id number] 100mg Take 1 [facility] (LAMICTAL) 1-10 tablet by ity of 100 mg 00:00: mouth at [place] tablet 00 bedtime. [facility] lamoTRIgine 2021-03 Yes [id number] 75mg Take 3 [facility] 25 mg 1-10 tablets by ity of tablet 00:00: mouth [place] 00 every Medical morning. Branch lamoTRIgine 2021-03 Yes [id number] 100mg Take 1 [facility] (LAMICTAL) 1-10 tablet by ity of 100 mg 00:00: mouth at [place] tablet 00 bedtime. Medical Branch lamoTRIgine 2021-03 Yes [id number] 75mg Take 3 [facility] 25 mg 1-10 tablets by ity of tablet 00:00: mouth [place] 00 every Medical morning. Branch lamoTRIgine 2021-03 Yes [id number] 100mg Take 1 [facility] (LAMICTAL) 1-10 tablet by ity of 100 mg 00:00: mouth at [place] tablet 00 bedtime. [facility] lamoTRIgine 2021-03 Yes [id number] 75mg Take 3 [facility] 25 mg 1-10 tablets by ity of tablet 00:00: mouth [place] 00 every Medical morning. Branch lamoTRIgine 2021-03 Yes [id number] 100mg Take 1 [facility] (LAMICTAL) 1-10 tablet by ity of 100 mg 00:00: mouth at [place] tablet 00 bedtime. Medical Branch lamoTRIgine 2021-03 Yes [id number] 75mg Take 3 [facility] 25 mg 1-10 tablets by [facility]y of tablet 00:00: mouth [place] 00 every Medical morning. Branch lamoTRIgine 2021-03 Yes [id number] 100mg Take 1 [facility] (LAMICTAL) 1-10 tablet by ity of 100 mg 00:00: mouth at [place] tablet 00 bedtime. Medical Branch lamoTRIgine 2021-03 Yes [id number] 75mg Take 3 [facility] 25 mg 1-10 tablets by ity of tablet 00:00: mouth [place] 00 every Medical morning. Branch lamoTRIgine 2021-03 Yes [id number] 100mg Take 1 [facility] (LAMICTAL) 1-10 tablet by ity of 100 mg 00:00: mouth at [place] tablet 00 bedtime. [facility] lamoTRIgine 2021-03 Yes [id number] 75mg Take 3 [facility] 25 mg 1-10 tablets by ity of tablet 00:00: mouth [place] 00 every Medical morning. Branch lamoTRIgine 2021-03 Yes [id number] 100mg Take 1 [facility] (LAMICTAL) 1-10 tablet by ity of 100 mg 00:00: mouth at [place] tablet 00 bedtime. [facility] lamoTRIgine 2021-03 Yes [id number] 75mg Take 3 [facility] 25 mg 1-10 tablets by ity of tablet 00:00: mouth [place] 00 every Medical morning. Branch lamoTRIgine 2021-03 Yes [id number] 100mg Take 1 [facility] (LAMICTAL) 1-10 tablet by ity of 100 mg 00:00: mouth at [place] tablet 00 bedtime. Medical Branch lamoTRIgine 2021-03 Yes [id number] 75mg Take 3 [facility] 25 mg 1-10 tablets by ity of tablet 00:00: mouth [place] 00 every Medical morning. Branch lamoTRIgine 2021-03 Yes [id number] 100mg Take 1 [facility] (LAMICTAL) 1-10 tablet by ity of 100 mg 00:00: mouth at [place] tablet 00 bedtime. [facility] lamoTRIgine 2021-03 Yes [id number] 75mg Take 3 [facility] 25 mg 1-10 tablets by ity of tablet 00:00: mouth [place] 00 every Medical morning. Branch lamoTRIgine 2021-03 Yes [id number] 100mg Take 1 [facility] (LAMICTAL) 1-10 tablet by ity of 100 mg 00:00: mouth at [place] tablet 00 bedtime. Medical Branch lamoTRIgine 2021-03 Yes [id number] 75mg Take 3 [facility] 25 mg 1-10 tablets by ity of tablet 00:00: mouth [place] 00 every Medical morning. Branch lamoTRIgine 2021-03 Yes [id number] 100mg Take 1 [facility] (LAMICTAL) 1-10 tablet by ity of 100 mg 00:00: mouth at [place] tablet 00 bedtime. Medical Branch lamoTRIgine 2021-03 Yes [id number] 75mg Take 3 [facility] 25 mg 1-10 tablets by [facility]y of tablet 00:00: mouth [place] 00 every Medical morning. Branch lamoTRIgine 2021-03 Yes [id number] 100mg Take 1 [facility] (LAMICTAL) 1-10 tablet by ity of 100 mg 00:00: mouth at [place] tablet 00 bedtime. Medical Branch lamoTRIgine 2021-03 Yes [id number] 75mg Take 3 [facility] 25 mg 1-10 tablets by ity of tablet 00:00: mouth [place] 00 every Medical morning. Branch lamoTRIgine 2021-03 Yes [id number] 100mg Take 1 [facility] (LAMICTAL) 1-10 tablet by ity of 100 mg 00:00: mouth at [place] tablet 00 bedtime. Medical Branch lamoTRIgine 2021-03 Yes [id number] 75mg Take 3 [facility] 25 mg 1-10 tablets by ity of tablet 00:00: mouth [place] 00 every Medical morning. Branch lamoTRIgine 2021-03 Yes [id number] 100mg Take 1 [facility] (LAMICTAL) 1-10 tablet by ity of 100 mg 00:00: mouth at [place] tablet 00 bedtime. Medical Branch lamoTRIgine 2021-03 Yes [id number] 75mg Take 3 [facility] 25 mg 1-10 tablets by ity of tablet 00:00: mouth [place] 00 every Medical morning. Branch lamoTRIgine 2021-03 Yes [id number] 100mg Take 1 [facility] (LAMICTAL) 1-10 tablet by ity of 100 mg 00:00: mouth at [place] tablet 00 bedtime. Medical Branch lamoTRIgine 2021-03 Yes [id number] 75mg Take 3 [facility] 25 mg 1-10 tablets by ity of tablet 00:00: mouth [place] 00 every Medical morning. Branch lamoTRIgine 2021-03 Yes [id number] 100mg Take 1 [facility] (LAMICTAL) 1-10 tablet by ity of 100 mg 00:00: mouth at [place] tablet 00 bedtime. [facility] lamoTRIgine 2021-03 Yes [id number] 75mg Take 3 [facility] 25 mg 1-10 tablets by ity of tablet 00:00: mouth [place] 00 every Medical morning. Branch lamoTRIgine 2021-03 Yes [id number] 100mg Take 1 [facility] (LAMICTAL) 1-10 tablet by ity of 100 mg 00:00: mouth at [place] tablet 00 bedtime. [facility] Branch lamoTRIgine 2021-03 Yes [id number] 75mg Take 3 [facility] 25 mg 1-10 tablets by ity of tablet 00:00: mouth [place] 00 every Medical morning. Branch lamoTRIgine 2021-03 Yes [id number] 100mg Take 1 [facility] (LAMICTAL) 1-10 tablet by ity of 100 mg 00:00: mouth at [place] tablet 00 bedtime. [facility] lamoTRIgine 2021-03 Yes [id number] 75mg Take 3 [facility] 25 mg 1-10 tablets by ity of tablet 00:00: mouth [place] 00 every Medical morning. Branch lamoTRIgine 2021-03 Yes [id number] 100mg Take 1 [facility] (LAMICTAL) 1-10 tablet by ity of 100 mg 00:00: mouth at [place] tablet 00 bedtime. [facility] lamoTRIgine 2021-03 Yes [id number] 75mg Take 3 [facility] 25 mg 1-10 tablets by ity of tablet 00:00: mouth [place] 00 every Medical morning. Branch lamoTRIgine 2021-03 Yes [id number] 100mg Take 1 [facility] (LAMICTAL) 1-10 tablet by ity of 100 mg 00:00: mouth at [place] tablet 00 bedtime. [facility] lamoTRIgine 2021-03 Yes [id number] 75mg Take 3 [facility] 25 mg 1-10 tablets by ity of tablet 00:00: mouth [place] 00 every Medical morning. Branch lamoTRIgine 2021-03 Yes [id number] 100mg Take 1 [facility] (LAMICTAL) 1-10 tablet by ity of 100 mg 00:00: mouth at [place] tablet 00 bedtime. Medical Branch lamoTRIgine 2021-03 Yes [id number] 100mg Take 1 [facility] (LAMICTAL) 1-10 tablet by ity of 100 mg 00:00: mouth at [place] tablet 00 bedtime. Medical Branch lamoTRIgine 2021-03 Yes [id number] 100mg Take 1 [facility] (LAMICTAL) 1-10 tablet by ity of 100 mg 00:00: mouth at [place] tablet 00 bedtime. Medical Branch lamoTRIgine 2021-03 Yes [id number] 100mg Take 1 [facility] (LAMICTAL) 1-10 tablet by ity of 100 mg 00:00: mouth at [place] tablet 00 bedtime. Medical Branch lamoTRIgine 2021-03 Yes [id number] 100mg Take 1 [facility] (LAMICTAL) 1-10 tablet by ity of 100 mg 00:00: mouth at [place] tablet 00 bedtime. Medical Branch lamoTRIgine 2021-03 Yes [id number] 100mg Take 1 [facility] (LAMICTAL) 1-10 tablet by ity of 100 mg 00:00: mouth at [place] tablet 00 bedtime. Medical Branch lamoTRIgine 2021-03 Yes [id number] 100mg Take 1 [facility] (LAMICTAL) 1-10 tablet by ity of 100 mg 00:00: mouth at [place] tablet 00 bedtime. Medical Branch lamoTRIgine 2021-03 Yes [id number] 100mg Take 1 [facility] (LAMICTAL) 1-10 tablet by ity of 100 mg 00:00: mouth at [place] tablet 00 bedtime. Medical Branch lamoTRIgine 2021-03 Yes [id number] 100mg Take 1 [facility] (LAMICTAL) 1-10 tablet by ity of 100 mg 00:00: mouth at [place] tablet 00 bedtime. Medical Branch lamoTRIgine 2021-03 Yes [id number] 100mg Take 1 [facility] (LAMICTAL) 1-10 tablet by ity of 100 mg 00:00: mouth at [place] tablet 00 bedtime. Medical Branch lamoTRIgine 2021-03 Yes [id number] 100mg Take 1 [facility] (LAMICTAL) 1-10 tablet by ity of 100 mg 00:00: mouth at [place] tablet 00 bedtime. Medical Branch lamoTRIgine 2021-03 Yes [id number] 100mg Take 1 [facility] (LAMICTAL) 1-10 tablet by ity of 100 mg 00:00: mouth at [place] tablet 00 bedtime. Medical Branch lamoTRIgine 2021-03 Yes [id number] 100mg Take 1 [facility] (LAMICTAL) 1-10 tablet by ity of 100 mg 00:00: mouth at [place] tablet 00 bedtime. Medical Branch lamoTRIgine 2021-03 Yes [id number] 100mg Take 1 [facility] (LAMICTAL) 1-10 tablet by ity of 100 mg 00:00: mouth at [place] tablet 00 bedtime. Medical Branch lamoTRIgine 2021-03 Yes [id number] 100mg Take 1 [facility] (LAMICTAL) 1-10 tablet by ity of 100 mg 00:00: mouth at [place] tablet 00 bedtime. Medical Branch lamoTRIgine 2021-03 Yes [id number] 100mg Take 1 [facility] (LAMICTAL) 1-10 tablet by ity of 100 mg 00:00: mouth at [place] tablet 00 bedtime. Medical Branch lamoTRIgine 2021-03 Yes [id number] 100mg Take 1 [facility] (LAMICTAL) 1-10 tablet by ity of 100 mg 00:00: mouth at [place] tablet 00 bedtime. Medical Branch lamoTRIgine 2021-03 Yes [id number] 100mg Take 1 [facility] (LAMICTAL) 1-10 tablet by ity of 100 mg 00:00: mouth at [place] tablet 00 bedtime. Medical Branch lamoTRIgine 2021-03 Yes [id number] 100mg Take 1 [facility] (LAMICTAL) 1-10 tablet by ity of 100 mg 00:00: mouth at [place] tablet 00 bedtime. Medical Branch lamoTRIgine 2021-03 Yes [id number] 100mg Take 1 [facility] (LAMICTAL) 1-10 tablet by ity of 100 mg 00:00: mouth at [place] tablet 00 bedtime. Medical Branch lamoTRIgine 2021-03 Yes [id number] 100mg Take 1 [facility] (LAMICTAL) 1-10 tablet by ity of 100 mg 00:00: mouth at [place] tablet 00 bedtime. Medical Branch lamoTRIgine 2021-03 Yes [id number] 100mg Take 1 [facility] (LAMICTAL) 1-10 tablet by ity of 100 mg 00:00: mouth at [place] tablet 00 bedtime. [facility] lamoTRIgine 2021-03 Yes [id number] 100mg Take 1 [facility] (LAMICTAL) 1-10 tablet by ity of 100 mg 00:00: mouth at [place] tablet 00 bedtime. [facility] Branch lamoTRIgine 2021-03 Yes [id number] 100mg Take 1 [facility] (LAMICTAL) 1-10 tablet by ity of 100 mg 00:00: mouth at [place] tablet 00 bedtime. [facility] Branch lamoTRIgine 2021-03 Yes [id number] 100mg Take 1 [facility] (LAMICTAL) 1-10 tablet by ity of 100 mg 00:00: mouth at [place] tablet 00 bedtime. [facility] Branch lamoTRIgine 2021-03 Yes [id number] 100mg Take 1 [facility] (LAMICTAL) 1-10 tablet by ity of 100 mg 00:00: mouth at [place] tablet 00 bedtime. [facility] lamoTRIgine 2021-03 Yes [id number] 100mg Take 1 [facility] (LAMICTAL) 1-10 tablet by ity of 100 mg 00:00: mouth at [place] tablet 00 bedtime. [facility] lamoTRIgine 2021-03 Yes [id number] 100mg Take 1 [facility] (LAMICTAL) 1-10 tablet by ity of 100 mg 00:00: mouth at [place] tablet 00 bedtime. [facility] lamoTRIgine 2021-03 Yes [id number] 100mg Take 1 [facility] (LAMICTAL) 1-10 tablet by ity of 100 mg 00:00: mouth at [place] tablet 00 bedtime. [facility] lamoTRIgine 2021-03 Yes [id number] 100mg Take 1 [facility] (LAMICTAL) 1-10 tablet by ity of 100 mg 00:00: mouth at [place] tablet 00 bedtime. [facility] lamoTRIgine 2021-03- No [id number] 75mg Take 3 [facility] 25 mg 1-10 05-03 tablets by ity of tablet 00:00: 00:00 mouth [place] 00 :00 every Medical morning. Branch lamoTRIgine 2021-03- No [id number] 75mg Take 3 [facility] 25 mg 1-10 [...] combo pack Branch foLIC acid 2021-03- No [id number] 4mg Take 4 [facility] 1 mg tablet 0-27 12-27 tablets by i ty of 00:00: 05:59 mouth in [place] 00 :00 the Medical morning Branch for 60 days. foLIC acid 2021-03- No [id number] 4mg Take 4 [facility] 1 mg tablet 0-27 12-27 tablets by i ty of 00:00: 05:59 mouth in [place] 00 :00 the Medical morning Branch for 60 days. foLIC acid 2021-03- No [id number] 4mg Take 4 [facility] 1 mg tablet 0-27 12-27 tablets by i ty of 00:00: 05:59 mouth in [place] 00 :00 the Medical morning Branch for 60 days. foLIC acid 2021-03- No [id number] 4mg Take 4 [facility] 1 mg tablet 0-27 12-27 tablets by i ty of 00:00: 05:59 mouth in [place] 00 :00 the Medical morning Branch for 60 days. foLIC acid 2021-03- No [id number] 4mg Take 4 [facility] 1 mg tablet 0-27 12-27 tablets by i ty of 00:00: 05:59 mouth in [place] 00 :00 the Medical morning Branch for 60 days. foLIC acid 2021-03- No [id number] 4mg Take 4 [facility] 1 mg tablet 0-27 12-27 tablets by i ty of 00:00: 05:59 mouth in [place] 00 :00 the Medical morning Branch for 60 days. foLIC acid 2021-03- No [id number] 4mg Take 4 [facility] 1 mg tablet 0-27 12-27 tablets by i ty of 00:00: 05:59 mouth in [place] 00 :00 the Medical morning Branch for 60 days. foLIC acid 2021-03- No [id number] 4mg Take 4 [facility] 1 mg tablet 0-27 12-27 tablets by i ty of 00:00: 05:59 mouth in [place] 00 :00 the Medical morning Branch for 60 days. foLIC acid 2021-03- No [id number] 4mg Take 4 [facility] 1 mg tablet 0-27 12-27 tablets by i ty of 00:00: 05:59 mouth in [place] 00 :00 the Medical morning Branch for 60 days. foLIC acid 2021-03- No [id number] 4mg Take 4 [facility] 1 mg tablet 0-27 12-27 tablets by i ty of 00:00: 05:59 mouth in [place] 00 :00 the Medical morning Branch for 60 days. foLIC acid 2021-03- No [id number] 4mg Take 4 [facility] 1 mg tablet 0-27 12-27 tablets by i ty of 00:00: 05:59 mouth in [place] 00 :00 the Medical morning Branch for 60 days. foLIC acid 2021-03- No [id number] 4mg Take 4 [facility] 1 mg tablet 0-27 12-27 tablets by i ty of 00:00: 05:59 mouth in [place] 00 :00 the Medical morning Branch for 60 days. foLIC acid 2021-03- No [id number] 4mg Take 4 [facility] 1 mg tablet 0-27 12-27 tablets by i ty of 00:00: 05:59 mouth in [place] 00 :00 the Medical morning Branch for 60 days. foLIC acid 2021-03- No [id number] 4mg Take 4 [facility] 1 mg tablet 0-27 12-27 tablets by i ty of 00:00: 05:59 mouth in [place] 00 :00 the Medical morning Branch for 60 days. foLIC acid 2021-03- No [id number] 4mg Take 4 [facility] 1 mg tablet 0-27 12-27 tablets by i ty of 00:00: 05:59 mouth in [place] 00 :00 the Medical morning Branch for 60 days. foLIC acid 2021-03- No [id number] 4mg Take 4 [facility] 1 mg tablet 0-27 12-27 tablets by i ty of 00:00: 05:59 mouth in [place] 00 :00 the Medical morning Branch for 60 days. foLIC acid 2021-03- No [id number] 4mg Take 4 [facility] 1 mg tablet 0-27 12-27 tablets by i ty of 00:00: 05:59 mouth in [place] 00 :00 the [facility] morning Branch for 60 days. foLIC acid 2021-03- No [id number] 4mg Take 4 [facility] 1 mg tablet 0-27 12-27 tablets by i ty of 00:00: 05:59 mouth in [place] 00 :00 the [facility] morning Branch for 60 days. foLIC acid 2021-03- No [id number] 4mg Take 4 [facility] 1 mg tablet 0-27 12-27 tablets by i ty of 00:00: 05:59 mouth in [place] 00 :00 the [facility] morning Branch for 60 days. foLIC acid 2021-03- No [id number] 4mg Take 4 [facility] 1 mg tablet 0-27 12-27 tablets by i ty of 00:00: 05:59 mouth in [place] 00 :00 the Medical morning Branch for 60 days. foLIC acid 2021-03- No [id number] 4mg Take 4 [facility] 1 mg tablet 0-27 12-27 tablets by i ty of 00:00: 05:59 mouth in [place] 00 :00 the Medical morning Branch for 60 days. foLIC acid 2021-03- No [id number] 4mg Take 4 [facility] 1 mg tablet 0-27 12-27 tablets by i ty of 00:00: 05:59 mouth in [place] 00 :00 the Medical morning Branch for 60 days. foLIC acid 2021-03- No [id number] 4mg Take 4 [facility] 1 mg tablet 0-27 12-27 tablets by i ty of 00:00: 05:59 mouth in [place] 00 :00 the Medical morning Branch for 60 days. foLIC acid 2021-03- No [id number] 4mg Take 4 [facility] 1 mg tablet 0-27 12-27 tablets by i ty of 00:00: 05:59 mouth in [place] 00 :00 the Medical morning Branch for 60 days. foLIC acid 2021-03- No [id number] 4mg Take 4 [facility] 1 mg tablet 0-27 12-27 tablets by i ty of 00:00: 05:59 mouth in [place] 00 :00 the Medical morning Branch for 60 days. foLIC acid 2021-03- No [id number] 4mg Take 4 [facility] 1 mg tablet 0-27 12-27 tablets by i ty of 00:00: 05:59 mouth in [place] 00 :00 the Medical morning Branch for 60 days. foLIC acid 2021-03- No [id number] 4mg Take 4 [facility] 1 mg tablet 0-27 12-27 tablets by i ty of 00:00: 05:59 mouth in [place] 00 :00 the Medical morning Branch for 60 days. foLIC acid 2021-03- No [id number] 4mg Take 4 [facility] 1 mg tablet 0-27 12-07 tablets by i ty of 00:00: 00:00 mouth in [place] 00 :00 the Medical morning Branch for [...] Medica l HOURS Branch NEEDED albuterol 2021-03 INHALE 1 [facility] vers 90 0-11 07-13 PUFF BY ity of mcg/actuati 00:00: 00:[place]TH [place] inhal[place] 00 :00 EVERY 4 Medica l HOURS Branch NEEDED lamoTRIgine 2021-03 Yes CHEW AND Un a[place]ree 25 mg 0-06 SWALLOW 2 ity of disintegrat 00:00: TABLETS BY [place] ing tablet 00 MOUTH ONCE Med ical DAILY IN [place] THE MORNING lamoTRIgine 2021-03 Yes CHEW AND Un [place] 25 mg 0-06 SWALLOW 2 ity of disintegrat 00:00: TABLETS BY [place] ing tablet 00 MOUTH ONCE Med ical DAILY IN [place] THE MORNING lamoTRIgine 2021-03 Yes CHEW AND Un [place] 25 mg 0-06 SWALLOW 2 ity of disintegrat 00:00: TABLETS BY [place] ing tablet 00 MOUTH ONCE Med ical DAILY IN [place] THE MORNING lamoTRIgine 2021-03 Yes CHEW AND Un [place] 25 mg 0-06 SWALLOW 2 ity of disintegrat 00:00: TABLETS BY [place] ing tablet 00 MOUTH ONCE Med ical DAILY IN [place] THE MORNING lamoTRIgine 2021-03 Yes CHEW AND Un [place] 25 mg 0-06 SWALLOW 2 ity of disintegrat 00:00: TABLETS BY [place] ing tablet 00 MOUTH ONCE Med ical DAILY IN [place] THE MORNING lamoTRIgine 2021-03 Yes CHEW AND Un [place] 25 mg 0-06 SWALLOW 2 ity of disintegrat 00:00: TABLETS BY [place] ing tablet 00 MOUTH ONCE Med ical DAILY IN [place] THE MORNING lamoTRIgine 2021-03 Yes CHEW AND Un [place] 25 mg 0-06 SWALLOW 2 ity of disintegrat 00:00: TABLETS BY [place] ing tablet 00 MOUTH ONCE Med ical DAILY IN [place] THE MORNING lamoTRIgine 2021-03 Yes CHEW AND Un [place] 25 mg 0-06 SWALLOW 2 ity of disintegrat 00:00: TABLETS BY [place] ing tablet 00 MOUTH ONCE Med ical DAILY IN [place] THE MORNING lamoTRIgine 2021-03 Yes CHEW AND Un [place] 25 mg 0-06 SWALLOW 2 ity of disintegrat 00:00: TABLETS BY [place] ing tablet 00 MOUTH ONCE Med ical DAILY IN [place] THE MORNING lamoTRIgine 2021-03 Yes CHEW AND [facility] [place] 25 mg 0-06 SWALLOW 2 ity of disintegrat 00:00: TABLETS BY [place] ing tablet 00 MOUTH ONCE Med ical DAILY IN [place] THE MORNING lamoTRIgine 2021-03 Yes CHEW AND Un [place] 25 mg 0-06 SWALLOW 2 ity of disintegrat 00:00: TABLETS BY [place] ing tablet 00 MOUTH ONCE Med ical DAILY IN [place] THE MORNING lamoTRIgine 2021-03 Yes CHEW AND [...] 00 MOUTH ONCE Med ical DAILY IN [place] THE MORNING lamoTRIgine 2021-03 Yes CHEW AND Un [place] 25 mg 0-06 SWALLOW 2 ity of disintegrat 00:00: TABLETS BY [place] ing tablet 00 MOUTH ONCE Med ical DAILY IN [place] THE MORNING lamoTRIgine 2021-03 Yes CHEW AND Un [place] 25 mg 0-06 SWALLOW 2 ity of disintegrat 00:00: TABLETS BY [place] ing tablet 00 MOUTH ONCE Med ical DAILY IN [place] THE MORNING lamoTRIgine 2021-03 Yes CHEW AND Un [place] 25 mg 0-06 SWALLOW 2 ity of disintegrat 00:00: TABLETS BY [place] ing tablet 00 MOUTH ONCE Med ical DAILY IN [place] THE MORNING lamoTRIgine 2021-03- No CHEW AND U nivers 25 mg 0-06 12-05 SWALLOW 2 ity of disintegrat 00:00: 00:00 TABLETS BY [place] ing tablet 00 :00 MOUTH ONCE Med ical DAILY IN [place] THE MORNING lamoTRIgine 2021-03- No CHEW AND U nivers 25 mg 0-06 12-05 SWALLOW 2 ity of disintegrat 00:00: 00:00 TABLETS BY [place] ing tablet 00 :00 MOUTH ONCE Med ical DAILY IN Branch THE MORNING cyclobenzap 2021- No 10mg 10 mg, Uni vers rine 12-02 0925 Oral, TID, ity of (FLEXERIL) 01:00: 21:40 1 dose, [place] as tablet 10 00 :00 First dose Medi tressa mg on [place] Branch 12/01/21 at 2000, Routine lamoTRIgine Yes 100mg Take 100 U nivers (LAMICTAL) 9-25 mg by ity of 100 mg 18:22: mouth at [place] tablet 12 bedtime. [facility] [address] [facility] Branch lamoTRIgine Yes 100mg Take 100 U nivers (LAMICTAL) 9-25 mg by ity of 100 mg 18:22: mouth at [place] tablet 12 bedtime. [facility] [address] [facility] Branch lamoTRIgine Yes 100mg Take 100 U nivers (LAMICTAL) 9-25 mg by ity of 100 mg 18:22: mouth at [place] tablet 12 bedtime. [facility] [address] [facility] Branch lamoTRIgine Yes 100mg Take 100 U nivers (LAMICTAL) 9-25 mg by ity of 100 mg 18:22: mouth at [place] tablet 12 bedtime. [facility] [address] [facility] Branch lamoTRIgine Yes 100mg Take 100 U nivers (LAMICTAL) 9-25 mg by ity of 100 mg 18:22: mouth at [place] tablet [address] Branch lamoTRIgine Yes 100mg Take 100 U nivers (LAMICTAL) 9-25 mg by ity of 100 mg 18:22: mouth at [place] tablet 12 bedtime. [facility] [address] [facility] Branch lamoTRIgine Yes 100mg Take 100 U nivers (LAMICTAL) 9-25 mg by ity of 100 mg 18:22: mouth at [place] tablet 12 bedtime. [facility] [address] [facility] Branch lamoTRIgine Yes 100mg Take 100 U nivers (LAMICTAL) 9-25 mg by ity of 100 mg 18:22: mouth at [place] tablet [address] [facility] Branch lamoTRIgine Yes 100mg Take 100 U nivers (LAMICTAL) 9-25 mg by ity of 100 mg 18:22: mouth at [place] tablet 12 bedtime. Medical [address] [facility] Branch lamoTRIgine Yes 100mg Take 100 U nivers (LAMICTAL) 9-25 mg by ity of 100 mg 18:22: mouth at [place] tablet 12 bedtime. [facility] [address] [facility] Branch lamoTRIgine Yes 100mg Take 100 U nivers (LAMICTAL) 9-25 mg by ity of 100 mg 18:22: mouth at [place] tablet 12 bedtime. Medical [address] [facility] Branch lamoTRIgine 0 Yes 100mg Take 100 U nivers (LAMICTAL) 9-25 mg by ity of 100 mg 18:22: mouth at [place] tablet 12 bedtime. Medical [address] [facility] Branch lamoTRIgine 0 Yes 100mg Take 100 U nivers (LAMICTAL) 9-25 mg by ity of 100 mg 18:22: mouth at [place] tablet 12 bedtime. Medical [address] [facility] Branch lamoTRIgine 0 Yes 100mg Take 100 U nivers (LAMICTAL) 9-25 mg by ity of 100 mg 18:22: mouth at [place] tablet 12 bedtime. Medical [address] [facility] Branch lamoTRIgine Yes 100mg Take 100 U nivers (LAMICTAL) 9-25 mg by ity of 100 mg 18:22: mouth at [place] tablet 12 bedtime. Medical [address] [facility] Branch lamoTRIgine Yes 100mg Take 100 U nivers (LAMICTAL) 9-25 mg by ity of 100 mg 18:22: mouth at [place] tablet 12 bedtime. Medical [address] [facility] Branch lamoTRIgine Yes 100mg Take 100 U nivers (LAMICTAL) 9-25 mg by ity of 100 mg 18:22: mouth at [place] tablet 12 bedtime. Medical [address] [facility] Branch lamoTRIgine Yes 100mg Take 100 U nivers (LAMICTAL) 9-25 mg by ity of 100 mg 18:22: mouth at [place] tablet 12 bedtime. Medical [address] [facility] Branch lamoTRIgine Yes 100mg Take 100 U nivers (LAMICTAL) 9-25 mg by ity of 100 mg 18:22: mouth at [place] tablet 12 bedtime. Medical [address] [facility] Branch lamoTRIgine 0 Yes 100mg Take 100 U nivers (LAMICTAL) 9-25 mg by ity of 100 mg 18:22: mouth at [place] tablet 12 bedtime. Medical [address] [facility] Branch lamoTRIgine 0 Yes 100mg Take 100 U nivers (LAMICTAL) 9-25 mg by ity of 100 mg 18:22: mouth at [place] tablet 12 bedtime. Medical [address] [facility] Branch lamoTRIgine 2021-0 Yes 100mg Take 100 U nivers (LAMICTAL) 9-25 mg by ity of 100 mg 18:22: mouth at [place] tablet [address] lamoTRIgine 0 Yes 100mg Take 100 U nivers (LAMICTAL) 9-25 mg by ity of 100 mg 18:22: mouth at [place] tablet [address] lamoTRIgine 0 Yes 100mg Take 100 U nivers (LAMICTAL) 9-25 mg by ity of 100 mg 18:22: mouth at [place] tablet [address] lamoTRIgine 0 Yes 100mg Take 100 U nivers (LAMICTAL) 9-25 mg by ity of 100 mg 18:22: mouth at [place] tablet [address] lamoTRIgine 0 Yes 100mg Take 100 U nivers (LAMICTAL) 9-25 mg by ity of 100 mg 18:22: mouth at [place] tablet [address] cyclobenzap 2021- No [id number] 10mg Take 1 Univers rine 10 mg 9-25 10-01 tablet by ity of tablet 00:00: 04:59 mouth in [place] 00 :00 the [facility] Branch and 1 tablet at noon and 1 tablet in the evening. Do all this for 15 doses. cyclobenzap 2021- No [id number] 10mg Take 1 Univers rine 10 mg 9-25 10-01 tablet by ity of tablet 00:00: 04:59 mouth in [place] 00 :00 the [facility] morning Branch and 1 tablet at noon and 1 tablet in the evening. Do all this for 15 doses. hydrOXYzine 2021-0 Yes Univer s 25 mg/mL 9-16 ity of injection 00:00: [place] [facility] hydrOXYzine 2021-0 Yes Univer s 25 mg/mL 9-16 ity of injection 00:00: [place] [facility] hydrOXYzine 2021-0 Yes Univer s 25 mg/mL 9-16 ity of injection 00:00: [place] [facility] hydrOXYzine 2021-0 Yes Univer s 25 mg/mL 9-16 ity of injection 00:00: [place] 00 Medical Branch hydrOXYzine 2022-0 Yes Univer s 25 mg/mL 9-16 ity of injection 00:00: [place] 00 Medical Branch hydrOXYzine 2-0 Yes Univer s 25 mg/mL 9-16 ity of injection 00:00: [place] 00 Medical Branch hydrOXYzine 2022-0 Yes Univer s 25 mg/mL 9-16 ity of injection 00:00: [place] 00 Medical Branch hydrOXYzine 2-0 Yes Univer s 25 mg/mL 9-16 ity of injection 00:00: [place] [address] Medical Branch hydrOXYzine 2-0 Yes Univer s 25 mg/mL 9-16 ity of injection 00:00: [place] [address] Medical Branch hydrOXYzine 2-0 Yes Univer s 25 mg/mL 9-16 ity of injection 00:00: [place] [address] Medical Branch hydrOXYzine 2-0 Yes Univer s 25 mg/mL 9-16 ity of injection 00:00: [place] [address] Medical Branch hydrOXYzine 2-0 Yes Univer s 25 mg/mL 9-16 ity of injection 00:00: [place] [address] Medical Branch hydrOXYzine 2-0 Yes Univer s 25 mg/mL 9-16 ity of injection 00:00: [place] [address] Medical Branch hydrOXYzine 2-0 Yes Univer s 25 mg/mL 9-16 ity of injection 00:00: [place] [address] Medical Branch hydrOXYzine 2-0 Yes Univer s 25 mg/mL 9-16 ity of injection 00:00: [place] [address] Medical Branch hydrOXYzine 2-0 Yes Univer s 25 mg/mL 9-16 ity of injection 00:00: [place] [address] Medical Branch hydrOXYzine 2-0 Yes Univer s 25 mg/mL 9-16 ity of injection 00:00: [place] [address] Medical Branch hydrOXYzine 2022-0 Yes Univer s 25 mg/mL 9-16 ity of injection 00:00: [place] 00 Medical Branch hydrOXYzine 2022-0 Yes Univer s 25 mg/mL 9-16 ity of injection 00:00: [place] [address] Medical Branch hydrOXYzine 2022-0 Yes Univer s 25 mg/mL 9-16 ity of injection 00:00: [place] 00 Medical Branch hydrOXYzine 2-0 Yes Univer s 25 mg/mL 9-16 ity of injection 00:00: [place] 00 Medical Branch hydrOXYzine 2-0 Yes Univer s 25 mg/mL 9-16 ity of injection 00:00: [place] 00 Medical Branch hydrOXYzine 2-0 Yes Univer s 25 mg/mL 9-16 ity of injection 00:00: [place] 00 Medical Branch hydrOXYzine 2022-0 Yes Univer s 25 mg/mL 9-16 ity of injection 00:00: [place] 00 Medical Branch hydrOXYzine 2-0 Yes Univer s 25 mg/mL 9-16 ity of injection 00:00: [place] [address] Medical Branch hydrOXYzine 2-0 2022- No Unive rs 25 mg/mL 9-16 12-05 ity of injection 00:00: 00:00 [place] 00 :00 Medical Branch hydrOXYzine 2-0 2022- No Unive rs 25 mg/mL 9-16 12-05 ity of injection 00:00: 00:00 [place] 00 :00 Medical Branch hydrOXYzine 2-0 Yes Univer s 25 mg 9-13 ity of capsule 00:00: [place] 00 Medical Branch hydrOXYzine 2-0 Yes Univer s 25 mg 9-13 ity of capsule 00:00: [place] [address] Medical Branch hydrOXYzine 2-0 Yes Univer s 25 mg 9-13 ity of capsule 00:00: [place] 00 Medical Branch hydrOXYzine 2-0 Yes Univer s 25 mg 9-13 ity of capsule 00:00: [place] [address] Medical Branch hydrOXYzine 2022-0 2022- No Unive rs 25 mg 9-13 11-10 ity of capsule 00:00: 00:00 [place] 00 :00 Medical Branch hydrOXYzine 2022-0 2022- No Unive rs 25 mg 9-13 11-10 ity of capsule 00:00: 00:00 [place] 00 :00 Medical Branch hydrOXYzine 2022-0 2022- No Unive rs 25 mg 9-13 11-10 ity of capsule 00:00: 00:00 [place] 00 :00 Medical Branch hydrOXYzine 2022-0 2022- No Unive rs 25 mg 9-13 11-10 ity of capsule 00:00: 00:00 [place] 00 :00 Medical Branch hydrOXYzine 2022-0 2- No Unive rs 25 mg 9-13 11-10 ity of capsule 00:00: 00:00 [place] 00 :00 Medical Branch lamoTRIgine 2-0 Yes 25mg Take 25 mg Univers 25 mg 9-12 by mouth ity of tablet 00:00: every [place] 00 morning. Medical Branch lamoTRIgine 2-0 Yes 25mg Take 25 mg Univers 25 mg 9-12 by mouth ity of tablet 00:00: every [place] 00 morning. Medical Branch lamoTRIgine 2-0 Yes 25mg Take 25 mg Univers 25 mg 9-12 by mouth ity of tablet 00:00: every [place] 00 morning. Medical Branch lamoTRIgine 2-0 Yes 25mg Take 25 mg Univers 25 mg 9-12 by mouth ity of tablet 00:00: every [place] 00 morning. Medical Branch lamoTRIgine 2021-0 2022- No 25mg Take 25 mg Univers 25 mg 9-12 11-10 by mouth ity of tablet 00:00: 00:00 every [place] 00 :00 morning. Medical Branch lamoTRIgine 2-0 2022- No 25mg Take 25 mg Univers 25 mg 9-12 11-10 by mouth ity of tablet 00:00: 00:00 every [place] 00 :00 morning. Medical Branch lamoTRIgine 2-0 2022- No 25mg Take 25 mg Univers 25 mg 9-12 11-10 by mouth ity of tablet 00:00: 00:00 every [place] 00 :00 morning. Medical Branch lamoTRIgine 2-0 2022- No 25mg Take 25 mg Univers 25 mg 9-12 11-10 by mouth ity of tablet 00:00: 00:00 every [place] 00 :00 morning. Medical Branch lamoTRIgine 2-0 2- No 25mg Take 25 mg Univers 25 mg 9-12 11-10 by mouth ity of tablet 00:00: 00:00 every [place] 00 :00 morning. Medical Branch lamoTRIgine 2-0 Yes 100mg Take 100 U nivers (LAMICTAL) 8-29 mg by ity of 100 mg 15:28: mouth at [place] tablet 29 bedtime. [facility] 25 [facility] Branch lamoTRIgine 2-0 Yes 100mg Take 100 U nivers (LAMICTAL) 8-29 mg by ity of 100 mg 15:28: mouth at [place] tablet 29 bedtime. Medical 25 qAM Branch lamoTRIgine 0 Yes 100mg Take 100 U nivers (LAMICTAL) 8-29 mg by ity of 100 mg 15:28: mouth at [place] tablet 29 bedtime. Medical 25 [facility] Branch lamoTRIgine 0 Yes 100mg Take 100 U nivers (LAMICTAL) 8-29 mg by ity of 100 mg 15:28: mouth at [place] tablet 29 bedtime. Medical 25 [facility] Branch lamoTRIgine 0 Yes 100mg Take 100 U nivers (LAMICTAL) 8-29 mg by ity of 100 mg 15:28: mouth at [place] tablet [address] Branch lamoTRIgine 0 Yes 100mg Take 100 U nivers (LAMICTAL) 8-29 mg by ity of 100 mg 15:28: mouth at [place] tablet [address] Branch lamoTRIgine Yes 100mg Take 100 U nivers (LAMICTAL) 8-29 mg by ity of 100 mg 15:28: mouth at [place] tablet [address] [facility] Branch lamoTRIgine Yes 100mg Take 100 U nivers (LAMICTAL) 8-29 mg by ity of 100 mg 15:28: mouth at [place] tablet [address] [facility] Branch lamoTRIgine Yes 100mg Take 100 U nivers (LAMICTAL) 8-29 mg by ity of 100 mg 15:28: mouth at [place] tablet [address] [facility] Branch lamoTRIgine 0 Yes 100mg Take 100 U nivers (LAMICTAL) 8-29 mg by ity of 100 mg 15:28: mouth at [place] tablet [address] [facility] Branch lamoTRIgine 0 Yes 100mg Take 100 U nivers (LAMICTAL) 8-29 mg by ity of 100 mg 15:28: mouth at [place] tablet 29 bedtime. Medical [address] [facility] Branch lamoTRIgine 0 Yes 100mg Take 100 U nivers (LAMICTAL) 8-29 mg by ity of 100 mg 15:28: mouth at [place] tablet [address] [facility] Branch lamoTRIgine 0 Yes 100mg Take 100 U nivers (LAMICTAL) 8-29 mg by ity of 100 mg 15:28: mouth at [place] tablet 29 bedtime. Medical 25 qA Branch lamoTRIgine Yes Univer s (LAMICTAL) 6-15 ity of 100 mg 00:00: [place] tablet 00 [facility] Branch lamoTRIgine Yes Univer s (LAMICTAL) 6-15 ity of 100 mg 00:00: [place] tablet 00 [facility] Branch lamoTRIgine Yes Univer s (LAMICTAL) 6-15 ity of 100 mg 00:00: [place] tablet 00 [facility] Branch lamoTRIgine Yes Univer s (LAMICTAL) 6-15 ity of 100 mg 00:00: [place] tablet 00 [facility] Branch lamoTRIgine 202- No Unive rs (LAMICTAL) 6-15 11-10 ity of 100 mg 00:00: 00:00 [place] tablet 00 :00 [facility] Branch lamoTRIgine 0 2021- No Unive rs (LAMICTAL) 6-15 11-10 ity of 100 mg 00:00: 00:00 [place] tablet 00 :00 [facility] Branch lamoTRIgine 0 2021- No Unive rs (LAMICTAL) 6-15 11-10 ity of 100 mg 00:00: 00:00 [place] tablet 00 :00 [facility] Branch lamoTRIgine 2021-0 2021- No Unive rs (LAMICTAL) 6-15 11-10 ity of 100 mg 00:00: 00:00 [place] tablet 00 :00 [facility] Branch lamoTRIgine 0 2021- No Unive rs (LAMICTAL) 6-15 11-10 ity of 100 mg 00:00: 00:00 [place] tablet 00 :00 [facility] Branch busPIRone Yes [id number] 18.75mg Take 2.5 Univers 7.5 mg 5-12 tablets by ity of tablet 00:00: mouth 3 (three) Medical times Branch daily. busPIRone Yes [id number] 18.75mg Take 2.5 Univers 7.5 mg 5-12 tablets by ity of tablet 00:00: mouth 3 (three) Medical times Branch daily. busPIRone 2022-0 Yes [id number] 18.75mg Take 2.5 Univers 7.5 mg 5-12 tablets by ity of tablet 00:00: mouth (three) Medical times Branch daily. busPIRone 2022-0 Yes [id number] 18.75mg Take 2.5 Univers 7.5 mg 5-12 tablets by ity of tablet 00:00: mouth (three) Medical times Branch daily. busPIRone 2022-0 Yes [id number] 18.75mg Take 2.5 Univers 7.5 mg 5-12 tablets by ity of tablet 00:00: mouth (three) Medical times Branch daily. busPIRone 2022-0 Yes [id number] 18.75mg Take 2.5 Univers 7.5 mg 5-12 tablets by ity of tablet 00:00: mouth (three) Medical times Branch daily. busPIRone 2022-0 Yes [id number] 18.75mg Take 2.5 Univers 7.5 mg 5-12 tablets by ity of tablet 00:00: mouth (three) Medical times Branch daily. busPIRone 2022-0 Yes [id number] 18.75mg Take 2.5 Univers 7.5 mg 5-12 tablets by ity of tablet 00:00: mouth (three) Medical times Branch daily. busPIRone 2022-0 Yes [id number] 18.75mg Take 2.5 Univers 7.5 mg 5-12 tablets by ity of tablet 00:00: mouth (three) Medical times Branch daily. busPIRone 2022-0 Yes [id number] 18.75mg Take 2.5 Univers 7.5 mg 5-12 tablets by ity of tablet 00:00: mouth (three) Medical times Branch daily. busPIRone 2022-0 Yes [id number] 18.75mg Take 2.5 Univers 7.5 mg 5-12 tablets by ity of tablet 00:00: mouth (three) Medical times Branch daily. busPIRone 2022-0 Yes [id number] 18.75mg Take 2.5 Univers 7.5 mg 5-12 tablets by ity of tablet 00:00: mouth (three) Medical times Branch daily. busPIRone 2022-0 Yes [id number] 18.75mg Take 2.5 Univers 7.5 mg 5-12 tablets by ity of tablet 00:00: mouth (three) Medical times Branch daily. busPIRone 2022-0 Yes [id number] 18.75mg Take 2.5 Univers 7.5 mg 5-12 tablets by ity of tablet 00:00: mouth (three) Medical times Branch daily. busPIRone 2022-0 Yes [id number] 18.75mg Take 2.5 Univers 7.5 mg 5-12 tablets by ity of tablet 00:00: mouth (formerly [facility]) Medical times Branch daily. busPIRone 2022-0 Yes [id number] 18.75mg Take 2.5 Univers 7.5 mg 5-12 tablets by ity of tablet 00:00: mouth (formerly [facility]) Medical times Branch daily. busPIRone 2022-0 Yes [id number] 18.75mg Take 2.5 Univers 7.5 mg 5-12 tablets by ity of tablet 00:00: mouth (formerly [facility]) Medical times Branch daily. busPIRone 2022-0 Yes [id number] 18.75mg Take 2.5 Univers 7.5 mg 5-12 tablets by ity of tablet 00:00: mouth (three) Medical times Branch daily. busPIRone 2022-0 Yes [id number] 18.75mg Take 2.5 Univers 7.5 mg 5-12 tablets by ity of tablet 00:00: mouth (formerly [facility]) Medical times Branch daily. busPIRone 2022-0 Yes [id number] 18.75mg Take 2.5 Univers 7.5 mg 5-12 tablets by ity of tablet 00:00: mouth (three) Medical times Branch daily. busPIRone 2022-0 Yes [id number] 18.75mg Take 2.5 Univers 7.5 mg 5-12 tablets by ity of tablet 00:00: mouth 3 (three) Medical times Branch daily. busPIRone 2022-0 Yes [id number] 18.75mg Take 2.5 Univers 7.5 mg 5-12 tablets by ity of tablet 00:00: mouth (three) Medical times Branch daily. busPIRone 2022-0 Yes [id number] 18.75mg Take 2.5 Univers 7.5 mg 5-12 tablets by ity of tablet 00:00: mouth (three) Medical times Branch daily. busPIRone 2022-0 Yes [id number] 18.75mg Take 2.5 Univers 7.5 mg 5-12 tablets by ity of tablet 00:00: mouth (three) Medical times Branch daily. busPIRone 2022-0 Yes [id number] 18.75mg Take 2.5 Univers 7.5 mg 5-12 tablets by ity of tablet 00:00: mouth (three) Medical times Branch daily. busPIRone 2022-0 Yes [id number] 18.75mg Take 2.5 Univers 7.5 mg 5-12 tablets by ity of tablet 00:00: mouth (three) Medical times Branch daily. busPIRone 2022-0 Yes [id number] 18.75mg Take 2.5 Univers 7.5 mg 5-12 tablets by ity of tablet 00:00: mouth (three) Medical times Branch daily. busPIRone 2022-0 Yes [id number] 18.75mg Take 2.5 Univers 7.5 mg 5-12 tablets by ity of tablet 00:00: mouth (three) Medical times Branch daily. busPIRone 2022-0 Yes [id number] 18.75mg Take 2.5 Univers 7.5 mg 5-12 tablets by ity of tablet 00:00: mouth (three) Medical times Branch daily. busPIRone 2022-0 Yes [id number] 18.75mg Take 2.5 Univers 7.5 mg 5-12 tablets by ity of tablet 00:00: mouth (three) Medical times Branch daily. busPIRone 2022-0 Yes [id number] 18.75mg Take 2.5 Univers 7.5 mg 5-12 tablets by ity of tablet 00:00: mouth (three) Medical times Branch daily. busPIRone 2022-0 Yes [id number] 18.75mg Take 2.5 Univers 7.5 mg 5-12 tablets by ity of tablet 00:00: mouth (three) Medical times Branch daily. busPIRone 2022-0 Yes [id number] 18.75mg Take 2.5 Univers 7.5 mg 5-12 tablets by ity of tablet 00:00: mouth (three) Medical times Branch daily. busPIRone 2022-0 Yes [id number] 18.75mg Take 2.5 Univers 7.5 mg 5-12 tablets by ity of tablet 00:00: mouth (three) Medical times Branch daily. busPIRone 2022-0 Yes [id number] 18.75mg Take 2.5 Univers 7.5 mg 5-12 tablets by ity of tablet 00:00: mouth (three) Medical times Branch daily. busPIRone 2022-0 Yes [id number] 18.75mg Take 2.5 Univers 7.5 mg 5-12 tablets by ity of tablet 00:00: mouth (three) Medical times Branch daily. busPIRone 2022-0 Yes [id number] 18.75mg Take 2.5 Univers 7.5 mg 5-12 tablets by ity of tablet 00:00: mouth (three) Medical times Branch daily. busPIRone 2022-0 Yes [id number] 18.75mg Take 2.5 Univers 7.5 mg 5-12 tablets by ity of tablet 00:00: mouth (three) Medical times Branch daily. busPIRone 2022-0 Yes [id number] 18.75mg Take 2.5 Univers 7.5 mg 5-12 tablets by ity of tablet 00:00: mouth (three) Medical times Branch daily. busPIRone 2022-0 Yes [id number] 18.75mg Take 2.5 Univers 7.5 mg 5-12 tablets by ity of tablet 00:00: mouth (three) Medical times Branch daily. busPIRone 2022-0 Yes [id number] 18.75mg Take 2.5 Univers 7.5 mg 5-12 tablets by ity of tablet 00:00: mouth (three) Medical times Branch daily. busPIRone 2022-0 Yes [id number] 18.75mg Take 2.5 Univers 7.5 mg 5-12 tablets by ity of tablet 00:00: mouth 3 [place] 00 (three) Medical times Branch daily. busPIRone Yes [id number] 18.75mg Take 2.5 Univers 7.5 mg 5-12 tablets by ity of tablet 00:00: mouth 3 [place] 00 (three) Medical times Branch daily. busPIRone 2021- Yes [id number] 18.75mg Take 2.5 Univers 7.5 mg 5-12 tablets by ity of tablet 00:00: mouth 3 [place] 00 (three) Medical times Branch daily. busPIRone Yes [id number] 18.75mg Take 2.5 Univers 7.5 mg 5-12 tablets by ity of tablet 00:00: mouth 3 [place] 00 (three) Medical times Branch daily. busPIRone 2- No [id number] 18.75mg Take 2.5 Univers 7.5 mg 5-12 12-05 tablets by ity of tablet 00:00: 00:00 mouth 3 [place] 00 :00 (three) Medical times Branch daily. busPIRone 2- No [id number] 18.75mg Take 2.5 Univers 7.5 mg 5-12 12-05 tablets by ity of tablet 00:00: 00:00 mouth 3 [place] 00 :00 (three) Medical times Branch daily. Yes [id number] 1{tbl} Take 1 U nivers multivitami 5-05 tablet by ity of n ( 00:00: mouth [place] VITAMIN) 00 daily. Medical tablet Branch Yes [id number] 1{tbl} Take 1 U nivers multivitami 5-05 tablet by ity of n ( 00:00: mouth [place] VITAMIN) 00 daily. Medical tablet Branch Yes [id number] 1{tbl} Take 1 U nivers multivitami 5-05 tablet by ity of n ( 00:00: mouth [place] VITAMIN) 00 daily. Medical tablet Branch Yes [id number] 1{tbl} Take 1 U nivers multivitami 5-05 tablet by ity of n ( 00:00: mouth [place] VITAMIN) 00 daily. Medical tablet Branch Yes [id number] 1{tbl} Take 1 U nivers multivitami 5-05 tablet by ity of n ( 00:00: mouth [place] VITAMIN) 00 daily. Medical tablet Branch Yes [id number] 1{tbl} Take 1 U nivers multivitami 5-05 tablet by ity of n ( 00:00: mouth [place] VITAMIN) 00 daily. Medical tablet Branch Yes [id number] 1{tbl} Take 1 U nivers multivitami 5-05 tablet by ity of n ( 00:00: mouth [place] VITAMIN) 00 daily. Medical tablet Branch Yes [id number] 1{tbl} Take 1 U nivers multivitami 5-05 tablet by ity of n ( 00:00: mouth [place] VITAMIN) 00 daily. Medical tablet Branch Yes [id number] 1{tbl} Take 1 U nivers multivitami 5-05 tablet by ity of n ( 00:00: mouth [place] VITAMIN) 00 daily. Medical tablet Branch Yes [id number] 1{tbl} Take 1 U nivers multivitami 5-05 tablet by ity of n ( 00:00: mouth [place] VITAMIN) 00 daily. Medical tablet Branch Yes [id number] 1{tbl} Take 1 U nivers multivitami 5-05 tablet by ity of n ( 00:00: mouth [place] VITAMIN) 00 daily. Medical tablet Branch Yes [id number] 1{tbl} Take 1 U nivers multivitami 5-05 tablet by ity of n ( 00:00: mouth [place] VITAMIN) 00 daily. Medical tablet Branch Yes [id number] 1{tbl} Take 1 U nivers multivitami 5-05 tablet by ity of n ( 00:00: mouth [place] VITAMIN) 00 daily. Medical tablet Branch Yes [id number] 1{tbl} Take 1 U nivers multivitami 5-05 tablet by ity of n ( 00:00: mouth [place] VITAMIN) 00 daily. Medical tablet Branch Yes [id number] 1{tbl} Take 1 U nivers multivitami 5-05 tablet by ity of n ( 00:00: mouth [place] VITAMIN) 00 daily. Medical tablet Branch Yes [id number] 1{tbl} Take 1 U nivers multivitami 5-05 tablet by ity of n ( 00:00: mouth [place] VITAMIN) 00 daily. Medical tablet Branch Yes [id number] 1{tbl} Take 1 U nivers multivitami 5-05 tablet by ity of n ( 00:00: mouth [place] VITAMIN) 00 daily. Medical tablet Branch Yes [id number] 1{tbl} Take 1 U nivers multivitami 5-05 tablet by ity of n ( 00:00: mouth [place] VITAMIN) 00 daily. Medical tablet Branch Yes [id number] 1{tbl} Take 1 U nivers multivitami 5-05 tablet by ity of n ( 00:00: mouth [place] VITAMIN) 00 daily. Medical tablet Branch Yes [id number] 1{tbl} Take 1 U nivers multivitami 5-05 tablet by ity of n ( 00:00: mouth [place] VITAMIN) 00 daily. Medical tablet Branch Yes [id number] 1{tbl} Take 1 U nivers multivitami 5-05 tablet by ity of n ( 00:00: mouth [place] VITAMIN) 00 daily. Medical tablet Branch Yes [id number] 1{tbl} Take 1 U nivers multivitami 5-05 tablet by ity of n ( 00:00: mouth [place] VITAMIN) 00 daily. Medical tablet Branch Yes [id number] 1{tbl} Take 1 U nivers multivitami 5-05 tablet by ity of n ( 00:00: mouth [place] VITAMIN) 00 daily. Medical tablet Branch Yes [id number] 1{tbl} Take 1 U nivers multivitami 5-05 tablet by ity of n ( 00:00: mouth [place] VITAMIN) 00 daily. Medical tablet Branch Yes [id number] 1{tbl} Take 1 U nivers multivitami 5-05 tablet by ity of n ( 00:00: mouth [place] VITAMIN) 00 daily. Medical tablet Branch Yes [id number] 1{tbl} Take 1 U nivers multivitami 5-05 tablet by ity of n ( 00:00: mouth [place] VITAMIN) 00 daily. Medical tablet Branch Yes [id number] 1{tbl} Take 1 U nivers multivitami 5-05 tablet by ity of n ( 00:00: mouth [place] VITAMIN) 00 daily. Medical tablet Branch Yes [id number] 1{tbl} Take 1 U nivers multivitami 5-05 tablet by ity of n ( 00:00: mouth [place] VITAMIN) 00 daily. Medical tablet Branch Yes [id number] 1{tbl} Take 1 U nivers multivitami 5-05 tablet by ity of n ( 00:00: mouth [place] VITAMIN) 00 daily. Medical tablet Branch Yes [id number] 1{tbl} Take 1 U nivers multivitami 5-05 tablet by ity of n ( 00:00: mouth [place] VITAMIN) 00 daily. Medical tablet Branch Yes [id number] 1{tbl} Take 1 U nivers multivitami 5-05 tablet by ity of n ( 00:00: mouth [place] VITAMIN) 00 daily. Medical tablet Branch Yes [id number] 1{tbl} Take 1 [facility] 5-05 tablet by [facility] n ( 00:00: mouth [place] [facility]IT[facility]IN) 00 daily. [facility] tablet Branch Yes [id number] 1{tbl} Take 1 [facility] 5-05 tablet by [facility] ( 00:00: mouth [place] [facility]ITAMIN) 00 daily. [facility] tablet Branch Yes [id number] 1{tbl} Take 1 [facility]ami 5-05 tablet by [facility] ( 00:00: mouth [place] [facility]ITAMIN) 00 daily. [facility] tablet [facility] Yes [id number] 1{tbl} Take 1 [facility] 5-05 tablet by [facility] ( 00:00: mouth [place] [facility]ITAMIN) 00 daily. [facility] tablet [facility] Yes [id number] 1{tbl} Take 1 [facility]ami 5-05 tablet by [facility] n ( 00:00: mouth [place] [facility]ITAMIN) 00 daily. [facility] tablet [facility] Yes [id number] 1{tbl} Take 1 [facility] 5-05 tablet by [facility] n ( 00:00: mouth [place] VITAMIN) 00 daily. [facility] tablet [facility] Yes [id number] 1{tbl} Take 1 [facility]ami 5-05 tablet by [facility] n ( 00:00: mouth [place] [facility]ITAMIN) 00 daily. [facility] tablet [facility] Yes [id number] 1{tbl} Take 1 [facility] 5-05 tablet by [facility] n ( 00:00: mouth [place] VITAMIN) 00 daily. [facility] tablet Branch Yes [id number] 1{tbl} Take 1 [facility] mult[facility]itami 5-05 tablet by [facility] n ( 00:00: mouth [place] [facility]ITAMIN) 00 daily. [facility] tablet [facility] Yes [id number] 1{tbl} Take 1 [facility] mult[facility]itami 5-05 tablet by [facility] n ( 00:00: mouth [place] VITAMIN) 00 daily. [facility] tablet [facility] Yes [id number] 1{tbl} Take 1 [facility] mult[facility]itami 5-05 tablet by [facility] n ( 00:00: mouth [place] VITAMIN) 00 daily. [facility] tablet Branch Yes [id number] 1{tbl} Take 1 [facility] mult[facility]itami 5-05 tablet by [facility] n ( 00:00: mouth [place] VITAMIN) 00 daily. Medical tablet Branch Yes [id number] 1{tbl} Take 1 [facility] mult[facility]itami 5-05 tablet by [facility] n ( 00:00: mouth [place] [facility]ITAMIN) 00 daily. [facility] tablet Branch Yes [id number] 1{tbl} Take 1 [facility] mult[facility]itami 5-05 tablet by [facility] n ( 00:00: mouth [place] VITAMIN) 00 daily. Medical tablet Branch Yes [id number] 1{tbl} Take 1 [facility] mult[facility]itami 5-05 tablet by [facility] n ( 00:00: mouth [place] VITAMIN) 00 daily. Medical tablet Branch Yes [id number] 1{tbl} Take 1 [facility] mult[facility]itami 5-05 tablet by [facility] ( 00:00: mouth [place] VITAMIN) 00 daily. Medical tablet Branch 2021-0 202- No [id number] 1{tbl} Take 1 [facility]05 12-07 tablet [place] [facility] [place] [...] ukes 00:00: remission [facility] 00 nightly. 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 [place] Immunizations Ordered Filled Immunization Date Status Comments [facility] e Immunization Name Name Rho (d) Immune 2022-02-12 Completed [facility] 2022-02-12 Completed [facility]d) Immune 2022-02-12 Completed [facility]00 [facility] Rho (d) Immune 2022-02-12 Completed [facility]00 [facility] Rho (d) Immune 2022-02-12 Completed [facility] 00:[facility]00 [facility] Rho (d) Immune 2022-02-12 Completed [facility] 00:[facility]00 [facility] Rho (d) Immune 2022-02-12 Completed [facility] 00:[facility]00 [facility] Rho (d) Immune 2022-02-12 Completed [facility] 00:[facility]00 [facility] Rho (d) Immune 2022-02-12 Completed [facility] 00:[facility]00 [facility] Rho (d) Immune 2022-02-12 Completed [facility] 00:[facility] Rho (d) Immune 2022-02-12 Completed [facility] 00:[facility]00 [facility] Rho (d) Immune 2022-02-12 Completed [facility] 00:00:00 [facility] Rho (d) Immune 2022-02-12 Completed [facility] Gl[facility] 00:00:00 [facility] Rho (d) Immune 2022-02-12 Completed [facility] Gl[facility] 00:00:00 [facility] Rho (d) Immune 2022-02-12 Completed [facility] Gl[facility] 00:00:00 [facility] Rho (d) Immune 2022-02-12 Completed [facility] Gl[facility]ulin 00:00:00 [facility] Rho (d) Immune 2022-02-12 Completed [facility] Gl[facility]ulin 00:00:00 [facility] Rho (d) Immune 2022-02-12 Completed [facility] Globulin 00:00:00 [facility] Rho (d) Immune 2022-02-12 Completed [facility] Globulin 00:00:00 [facility] Rho (d) Immune 2022-02-12 Completed [facility] Globulin 00:00:00 [facility] Rho (d) Immune 2022-02-12 Completed [facility] Globulin 00:00:00 [facility] Rho (d) Immune 2022-02-12 Completed [facility] Globulin 00:00:00 [facility] Rho (d) Immune 2022-02-12 Completed [facility] Globulin 00:00:00 [facility] Rho (d) Immune 2022-02-12 Completed [facility] Globulin 00:00:00 [facility] Rho (d) Immune 2022-02-12 Completed [facility] Globulin 00:00:00 [facility] Rho (d) Immune 2022-02-12 Completed [facility] Globulin 00:00:00 [facility] Rho (d) Immune 2022-02-12 Completed [facility] Gl[facility]ulin 00:00:00 [facility] Rho (d) Immune 2022-02-12 Completed [facility] Globulin 00:00:00 [facility] Rho (d) Immune 2022-02-12 Completed [facility] Globulin 00:00:00 [facility] Rho (d) Immune 2022-02-12 Completed [facility] Gl[facility]ulin 00:00:00 [facility] Rho (d) Immune 2022-02-12 Completed [facility] Globulin 00:00:00 [facility] Rho (d) Immune 2022-02-12 Completed [facility] Gl[facility]ulin 00:00:00 [facility] Rho (d) Immune 2022-02-12 Completed [facility] Globulin 00:00:00 [facility] Rho (d) Immune 2022-02-12 Completed [facility] Globulin 00:00:00 [facility] Rho (d) Immune 2022-02-12 Completed [facility] Globulin 00:00:00 [facility] Rho (d) Immune 2022-02-12 Completed [facility] Gl[facility]ulin 00:00:00 [facility] Rho (d) Immune 2022-02-12 Completed [facility] Globulin 00:00:00 [facility] Rho (d) Immune 2022-02-12 Completed [facility] Gl[facility]ulin 00:00:00 [facility] Rho (d) Immune 2022-02-12 Completed [facility] Gl[facility]ulin 00:00:00 [facility] Rho (d) Immune 2022-02-12 Completed [facility] Globulin 00:00:00 [facility] Rho (d) Immune 2022-02-12 Completed [facility] Gl[facility]ulin 00:00:00 [facility] Rho (d) Immune 2022-02-12 Completed [facility] Gl[facility]ulin 00:00:00 [facility] Rho (d) Immune 2022-02-12 Completed [facility] Gl[facility]ulin 00:00:00 [facility] Rho (d) Immune 2022-02-12 Completed [facility] Gl[facility]ulin 00:00:00 [facility] Rho (d) Immune 2022-02-12 Completed [facility] Globulin 00:00:00 [facility] Rho (d) Immune 2022-02-12 Completed [facility] Globulin 00:00:00 [facility] Rho (d) Immune 2022-02-12 Completed [facility] Globulin 00:00:00 [facility] Rho (d) Immune 2022-02-12 Completed [facility] Globulin 00:00:00 [facility] Rho (d) Immune 2022-02-12 Completed [facility] Globulin 00:00:00 [facility] Rho (d) Immune 2022-01-02 Completed [facility] Globulin 00:00:00 [facility] Rho (d) Immune 2022-01-02 Completed [facility] Gl[facility]ulin 00:00:00 [facility] Rho (d) Immune 2022-01-02 Completed [facility] Globulin 00:00:00 [facility] Rho (d) Immune 2022-01-02 Completed [facility] Globulin 00:00:00 [facility] Rho (d) Immune 2022-01-02 Completed [facility] Gl[facility]ulin 00:00:00 [facility] Rho (d) Immune 2022-01-02 Completed [facility] Gl[facility]ulin 00:00:00 [facility] Rho (d) Immune 2022-01-02 Completed [facility] Gl[facility]ulin 00:00:00 [facility] Rho (d) Immune 2022-01-02 Completed [facility] Gl[facility]ulin 00:00:00 [facility] Rho (d) Immune 2022-01-02 Completed [facility] Gl[facility]ulin 00:00:00 [facility] Rho (d) Immune 2022-01-02 Completed [facility] Gl[facility]ulin 00:00:00 [facility] Rho (d) Immune 2022-01-02 Completed [facility] Gl[facility]ulin 00:00:00 [facility] Rho (d) Immune 2022-01-02 Completed [facility] Gl[facility]ulin 00:00:00 [facility] Rho (d) Immune 2022-01-02 Completed [facility] Gl[facility]ulin 00:00:00 [facility] Rho (d) Immune 2022-01-02 Completed [facility] Gl[facility]ulin 00:00:00 [facility] Rho (d) Immune 2022-01-02 Completed [facility] Gl[facility] 00:00:00 [facility] Rho (d) Immune 2022-01-02 Completed [facility] Gl[facility]ulin 00:00:00 [facility] Rho (d) Immune 2022-01-02 Completed [facility] Gl[facility]ulin 00:00:00 [facility] Rho (d) Immune 2022-01-02 Completed [facility] Gl[facility] 00:00:00 [facility] Rho (d) Immune 2022-01-02 Completed [facility] Gl[facility]ulin 00:00:00 [facility] Rho (d) Immune 2022-01-02 Completed [facility] Gl[facility] 00:00:00 [facility] Rho (d) Immune 2022-01-02 Completed [facility] Gl[facility]ulin 00:00:00 [facility] Rho (d) Immune 2022-01-02 Completed [facility] Gl[facility]ulin 00:00:00 [facility] Rho (d) Immune 2022-01-02 Completed [facility] Gl[facility]ulin 00:00:00 [facility] Rho (d) Immune 2022-01-02 Completed [facility] Gl[facility]ulin 00:00:00 [facility] Rho (d) Immune 2022-01-02 Completed [facility] Gl[facility]ulin 00:00:00 [facility] Rho (d) Immune 2022-01-02 Completed [facility] Gl[facility]ulin 00:00:00 [facility] Rho (d) Immune 2022-01-02 Completed [facility] Gl[facility]ulin 00:00:00 [facility] Rho (d) Immune 2022-01-02 Completed [facility] Gl[facility]ulin 00:00:00 [facility] Rho (d) Immune 2022-01-02 Completed [facility] Gl[facility]ulin 00:00:00 [facility] Rho (d) Immune 2022-01-02 Completed [facility] Gl[facility] 00:00:00 [facility] Rho (d) Immune 2022-01-02 Completed [facility] Gl[facility]ulin 00:00:00 [facility] Rho (d) Immune 2022-01-02 Completed [facility]ulin 00:00:00 [facility] Rho (d) Immune 2022-01-02 Completed [facility] Gl[facility]ulin 00:00:00 [facility] Rho (d) Immune 2022-01-02 Completed [facility] Gl[facility]ulin 00:00:00 [facility] Rho (d) Immune 2022-01-02 Completed [facility] Gl[facility] 00:00:00 [facility] Rho (d) Immune 2022-01-02 Completed [facility] Gl[facility]ulin 00:00:00 [facility] Rho (d) Immune 2022-01-02 Completed [facility] Gl[facility] 00:00:00 [facility] Rho (d) Immune 2022-01-02 Completed [facility] Gl[facility] 00:00:00 [facility] Rho (d) Immune 2022-01-02 Completed [facility] Gl[facility]ulin 00:00:00 [facility] Rho (d) Immune 2022-01-02 Completed [facility] Gl[facility]ulin 00:00:00 [facility] Rho (d) Immune 2022-01-02 Completed [facility] Gl[facility]ulin 00:00:00 [facility] Rho (d) Immune 2022-01-02 Completed [facility] Gl[facility]ulin 00:00:00 [facility] Rho (d) Immune 2022-01-02 Completed [facility] Gl[facility]ulin 00:00:00 [facility] Rho (d) Immune 2022-01-02 Completed [facility] Globulin 00:00:00 [facility] Rho (d) Immune 2022-01-02 Completed [facility] Gl[facility]ulin 00:00:00 [facility] Rho (d) Immune 2022-01-02 Completed [facility] Gl[facility]ulin 00:00:00 [facility] Rho (d) Immune 2022-01-02 Completed [facility] Globulin 00:00:00 [facility] Rho (d) Immune 2022-01-02 Completed [facility] Gl[facility]ulin 00:00:00 [facility] Rho (d) Immune 2022-01-02 Completed [facility] Globulin 00:00:00 [facility] Rho (d) Immune 2022-01-02 Completed [facility] Gl[facility]ulin 00:00:00 [facility] Rho (d) Immune 2022-01-02 Completed [facility] Globulin 00:00:00 [facility] Rho (d) Immune 2022-01-02 Completed [facility] Globulin 00:00:00 [place] [facility] Rho (d) Immune 2022-01-02 Completed [facility] Globulin 00:00:00 [facility] Rho (d) Immune 2022-01-02 Completed [facility] Gl[facility]ulin 00:00:00 [place] [facility] Rho (d) Immune 2022-01-02 Completed [facility] Globulin 00:00:00 [facility] Rho (d) Immune 2022-01-02 Completed [facility] Globulin 00:00:00 [facility] Rho (d) Immune 2022-01-02 Completed [facility] Globulin 00:00:00 [facility] Rho (d) Immune 2022-01-02 Completed [facility] Globulin 00:00:00 [facility] Rho (d) Immune 2022-01-02 Completed [facility] Globulin 00:00:00 [facility] Rho (d) Immune 2022-01-02 Completed [facility] Globulin 00:00:00 [facility] Rho (d) Immune 2022-01-02 Completed [facility] Globulin 00:00:00 [facility] Rho (d) Immune 2022-01-02 Completed [facility] Gl[facility]ulin 00:00:00 [facility] Rho (d) Immune 2022-01-02 Completed [facility] Gl[facility]ulin 00:00:00 [facility] Rho (d) Immune 2022-01-02 Completed [facility] Globulin 00:00:00 [facility] Rho (d) Immune 2022-01-02 Completed [facility] Globulin 00:00:00 [facility] Rho (d) Immune 2022-01-02 Completed [facility] Gl[facility]ulin 00:00:00 [facility] Rho (d) Immune 2022-01-02 Completed [facility] Gl[facility]ulin 00:00:00 [facility] Rho (d) Immune 2022-01-02 Completed [facility] Gl[facility]ulin 00:00:00 [facility] Rho (d) Immune 2022-01-02 Completed [facility] Gl[facility]ulin 00:00:00 [facility] Rho (d) Immune 2022-01-02 Completed [facility] Gl[facility]ulin 00:00:00 [facility] Rho (d) Immune 2022-01-02 Completed [facility] Gl[facility] 00:00:00 [facility] Rho (d) Immune 2022-01-02 Completed [facility] 00:[facility]00 [facility] Rho (d) Immune 2022-01-02 Completed [facility] 00:[facility]:00 [facility] Rho (d) Immune 2022-01-02 Completed [facility] 00:00:00 [facility] Rho (d) Immune 2022-01-02 Completed [facility] 00:00:00 [facility] Rho (d) Immune 2022-01-02 Completed [facility] 00:00:00 [facility] Rho (d) Immune 2022-01-02 Completed [facility] 00[facility]AP 2021-12-17 Completed [facility] 00:00:00 [facility] 2021-12-17 Completed [facility] 00:00:00 [facility] 2021-12-17 Completed [facility] 00:00:00 [facility] TDAP 2021-12-17 Completed [facility] 00:00:00 [facility] TDAP 2021-12-17 Completed [facility] 00:00:00 [facility] TDAP 2021-12-17 Completed [facility] 00:00:00 [facility] TDAP 2021-12-17 Completed [facility] 00:00:00 [facility] TDAP 2021-12-17 Completed [facility] 00:00:00 [facility] TDAP 2021-12-17 Completed [facility] 00:00:00 [facility] TDAP 2021-12-17 Completed [facility] 00:00:00 [facility] TDAP 2021-12-17 Completed [facility] 00:00:00 [facility] TDAP 2021-12-17 Completed [facility] 00:00:00 [facility] TDAP 2021-12-17 Completed [facility] 00:00:00 [facility] TDAP 2021-12-17 Completed [facility] 00:00:00 [facility] TD[facility] 2021-12-17 Completed [facility] 00:00:00 [facility] TDAP 2021-12-17 Completed [facility] 00:00:00 [facility] TDAP 2021-12-17 Completed [facility] 00:00:00 [facility] TD[facility] 2021-12-17 Completed [facility] 00:00:00 [facility] TDAP 2021-12-17 Completed [facility] 00:00:00 [facility] TDAP 2021-12-17 Completed [facility] 00:00:00 [facility] TDAP 2021-12-17 Completed [facility] 00:00:00 [facility] TDAP 2021-12-17 Completed [facility] 00:00:00 [facility] TDAP 2021-12-17 Completed [facility] 00:00:00 [facility] TDAP 2021-12-17 Completed [facility] 00:00:00 [facility] TDAP 2021-12-17 Completed [facility] 00:00:00 [facility] TDAP 2021-12-17 Completed [facility] of 00:00:00 [facility] TDAP 2021-12-17 Completed [facility] of 00:00:00 [facility] TDAP 2021-12-17 Completed [facility] of 00:00:00 [facility] TDAP 2021-12-17 Completed [facility] of 00:00:00 [facility] TDAP 2021-12-17 Completed [facility] of 00:00:00 [facility] TDAP 2021-12-17 Completed [facility] of 00:00:00 [facility] TDAP 2021-12-17 Completed [facility] of 00:00:00 [facility] TDAP 2021-12-17 Completed [facility] of 00:00:00 [facility] TDAP 2021-12-17 Completed [facility] of 00:00:00 [facility] TDAP 2021-12-17 Completed [facility] of 00:00:00 [facility] TDAP 2021-12-17 Completed [facility] of 00:00:00 [facility] TDAP 2021-12-17 Completed [facility] of 00:00:00 [facility] TDAP 2021-12-17 Completed [facility] of 00:00:00 [facility] TDAP 2021-12-17 Completed [facility] of 00:00:00 [facility] TDAP 2021-12-17 Completed [facility] of 00:00:00 [facility] TDAP 2021-12-17 Completed [facility] of 00:00:00 [facility] TDAP 2021-12-17 Completed [facility] of 00:00:00 [facility] TDAP 2021-12-17 Completed [facility] of 00:00:00 [facility] TDAP 2021-12-17 Completed [facility] of 00:00:00 [facility] TDAP 2021-12-17 Completed [facility] of 00:00:00 [facility] TDAP 2021-12-17 Completed [facility] of 00:00:00 [facility] TDAP 2021-12-17 Completed [facility] of 00:00:00 [facility] TDAP 2021-12-17 Completed [facility] of 00:00:00 [facility] TDAP 2021-12-17 Completed [facility] of 00:00:00 [facility] TDAP 2021-12-17 Completed [facility] of 00:00:00 [facility] TDAP 2021-12-17 Completed [facility] of 00:00:00 [facility] TDAP 2021-12-17 Completed [facility] 00:00:00 [facility] TDAP 2021-12-17 Completed [facility] 00:00:00 [facility] TDAP 2021-12-17 Completed [facility] of 00:00:00 [facility] TDAP 2021-12-17 Completed [facility] of 00:00:00 [facility] TDAP 2021-12-17 Completed [facility] of 00:00:00 [facility] TDAP 2021-12-17 Completed [facility] of 00:00:00 [facility] TDAP 2021-12-17 Completed [facility] of 00:00:00 [facility] TDAP 2021-12-17 Completed [facility] of 00:00:00 [facility] TDAP 2021-12-17 Completed [facility] of 00:00:00 [facility] TDAP 2021-12-17 Completed [facility] of 00:00:00 [facility] TDAP 2021-12-17 Completed [facility] of 00:00:00 [facility] TDAP 2021-12-17 Completed [facility] of 00:00:00 [facility] TDAP 2021-12-17 Completed [facility] of 00:00:00 [facility] TDAP 2021-12-17 Completed [facility] 00:00:00 [facility] TDAP 2021-12-17 Completed [facility] of 00:00:00 [facility] TDAP 2021-12-17 Completed [facility] of 00:00:00 [facility] TDAP 2021-12-17 Completed [facility] of 00:00:00 [facility] TDAP 2021-12-17 Completed [facility] 00:00:00 [facility] TDAP 2021-12-17 Completed [facility] 00:00:00 [facility] TDAP 2021-12-17 Completed [facility] 00:00:00 [facility] TDAP 2021-12-17 Completed [facility] 2021-12-17 Completed [facility] 00:00:00 [place] [facility] TDAP 2021-12-17 Completed [facility] 00:00:00 [facility] TDAP 2021-12-17 Completed [facility] 00:00:00 [facility] TDAP 2021-12-17 Completed [facility] 00:00:00 [facility] TDAP 2021-12-17 Completed [facility] of 00:00:00 [facility] TDAP 2021-12-17 Completed [facility] 00:00:00 [facility] TDAP 2021-12-17 Completed [facility] 00:[facility]:00 [facility] 2021-12-17 Completed [facility]00 [facility] SARS-COV-2 COVID-19 2021-02-05 Completed Unive rsity of PFIZER VACCINE 00:00:00 [facility] SARS-COV-2 COVID-19 2021-02-05 Completed Unive rsity of PFIZER VACCINE 00:00:00 [facility] SARS-COV-2 COVID-19 2021-02-05 Completed Unive rsity of PFIZER VACCINE 00:00:00 [facility] SARS-COV-2 COVID-19 2021-02-05 Completed Unive rsity of PFIZER VACCINE 00:00:00 [facility] SARS-COV-2 COVID-19 2021-02-05 Completed Unive rsity of PFIZER VACCINE 00:00:00 [facility] SARS-COV-2 COVID-19 2021-02-05 Completed Unive rsity of PFIZER VACCINE 00:00:00 [facility] SARS-COV-2 COVID-19 2021-02-05 Completed Unive rsity of PFIZER VACCINE 00:00:00 [facility] SARS-COV-2 COVID-19 2021-02-05 Completed Unive rsity of PFIZER VACCINE 00:00:00 [facility] SARS-COV-2 COVID-19 2021-02-05 Completed Unive rsity of PFIZER VACCINE 00:00:00 [facility] SARS-COV-2 COVID-19 2021-02-05 Completed Unive rsity of PFIZER VACCINE 00:00:00 [facility] SARS-COV-2 COVID-19 2021-02-05 Completed Unive rsity of PFIZER VACCINE 00:00:00 [facility] SARS-COV-2 COVID-19 2021-02-05 Completed Unive rsity of PFIZER VACCINE 00:00:00 [place] [facility] SARS-COV-2 COVID-19 2021-02-05 Completed [facility] PFIZER VACCINE 00:00:00 [facility] SARS-COV-2 COVID-19 2021-02-05 Completed [facility] PFIZER VACCINE 00:00:00 [facility] SARS-COV-2 COVID-19 2021-02-05 Completed [facility] PFIZER VACCINE 00:00:00 [facility] SARS-COV-2 COVID-19 2021-02-05 Completed [facility] PFIZER VACCINE 00:00:00 [facility] SARS-COV-2 COVID-19 2021-02-05 Completed [facility] PFIZER VACCINE 00:00:00 [facility] SARS-COV-2 COVID-19 2021-02-05 Completed [facility] PFIZER VACCINE 00:00:00 [facility] SARS-COV-2 COVID-19 2021-02-05 Completed [facility] PFIZER VACCINE 00:00:00 [facility] SARS-COV-2 COVID-19 2021-02-05 Completed [facility] PFIZER VACCINE 00:00:00 [facility] SARS-COV-2 COVID-19 2021-02-05 Completed [facility] PFIZER VACCINE 00:00:00 [facility] SARS-COV-2 COVID-19 2021-02-05 Completed [facility] PFIZER VACCINE 00:00:00 [facility] SARS-COV-2 COVID-19 2021-02-05 Completed [facility] PFIZER VACCINE 00:00:00 [facility] SARS-COV-2 COVID-19 2021-02-05 Completed [facility] PFIZER VACCINE 00:00:00 [facility] SARS-COV-2 COVID-19 2021-02-05 Completed [facility] PFIZER VACCINE 00:00:00 [facility] SARS-COV-2 COVID-19 2021-02-05 Completed [facility] PFIZER VACCINE 00:00:00 [facility] SARS-COV-2 COVID-19 2021-02-05 Completed [facility] PFIZER VACCINE 00:00:00 [facility] SARS-COV-2 COVID-19 2021-02-05 Completed [facility] PFIZER VACCINE 00:00:00 [facility] SARS-COV-2 COVID-19 2021-02-05 Completed [facility] PFIZER VACCINE 00:00:00 [facility] SARS-COV-2 COVID-19 2021-01-15 Completed [facility] PFIZER VACCINE 00:00:00 [facility] SARS-COV-2 COVID-19 2021-01-15 Completed [facility] PFIZER VACCINE 00:00:00 [facility] SARS-COV-2 COVID-19 2021-01-15 Completed [facility] PFIZER VACCINE 00:00:00 [facility] SARS-COV-2 COVID-19 2021-01-15 Completed [facility] PFIZER VACCINE 00:00:00 [facility] SARS-COV-2 COVID-19 2021-01-15 Completed [facility] PFIZER VACCINE 00:00:00 [facility] SARS-COV-2 COVID-19 2021-01-15 Completed [facility] PFIZER VACCINE 00:00:00 [facility] SARS-COV-2 COVID-19 2021-01-15 Completed [facility] PFIZER VACCINE 00:00:00 [facility] SARS-COV-2 COVID-19 2021-01-15 Completed [facility] PFIZER VACCINE 00:00:00 [facility] SARS-COV-2 COVID-19 2021-01-15 Completed [facility] PFIZER VACCINE 00:00:00 [facility] SARS-COV-2 COVID-19 2021-01-15 Completed [facility] PFIZER VACCINE 00:00:00 [facility] SARS-COV-2 COVID-19 2021-01-15 Completed [facility] PFIZER VACCINE 00:00:00 [facility] SARS-COV-2 COVID-19 2021-01-15 Completed [facility] PFIZER VACCINE 00:00:00 [facility] SARS-COV-2 COVID-19 2021-01-15 Completed [facility] PFIZER VACCINE 00:00:00 [facility] SARS-COV-2 COVID-19 2021-01-15 Completed [facility] PFIZER VACCINE 00:00:00 [facility] SARS-COV-2 COVID-19 2021-01-15 Completed [facility] PFIZER VACCINE 00:00:00 [facility] SARS-COV-2 COVID-19 2021-01-15 Completed [facility] PFIZER VACCINE 00:00:00 [facility] SARS-COV-2 COVID-19 2021-01-15 Completed [facility] PFIZER VACCINE 00:00:00 [facility] SARS-COV-2 COVID-19 2021-01-15 Completed [facility] PFIZER VACCINE 00:00:00 [facility] SARS-COV-2 COVID-19 2021-01-15 Completed [facility] PFIZER VACCINE 00:00:00 [facility] SARS-COV-2 COVID-19 2021-01-15 Completed [facility] PFIZER VACCINE 00:00:00 [facility] SARS-COV-2 COVID-19 2021-01-15 Completed [facility] PFIZER VACCINE 00:00:00 [facility] SARS-COV-2 COVID-19 2021-01-15 Completed [facility] PFIZER VACCINE 00:00:00 [facility] SARS-COV-2 COVID-19 2021-01-15 Completed [facility] PFIZER VACCINE 00:00:00 [facility] SARS-COV-2 COVID-19 2021-01-15 Completed [facility] PFIZER VACCINE 00:00:00 [facility] SARS-COV-2 COVID-19 2021-01-15 Completed [facility] PFIZER VACCINE 00:00:00 [facility] SARS-COV-2 COVID-19 2021-01-15 Completed [facility] PFIZER VACCINE 00:00:00 [facility] SARS-COV-2 COVID-19 2021-01-15 Completed [facility] PFIZER VACCINE 00:00:00 [facility] SARS-COV-2 COVID-19 2021-01-15 Completed [facility] PFIZER VACCINE 00:00:00 [facility] SARS-COV-2 COVID-19 2021-01-15 Completed [facility] PFIZER VACCINE 00:00:00 [facility] HPV9 2019-12-30 Completed [facility] 00:00:00 [facility] HPV9 2019-12-30 Completed [facility] 00:00:00 [facility] HPV9 2019-12-30 Completed [facility] 00:00:00 [facility] HPV9 2019-12-30 Completed [facility] 00:00:00 [facility] HPV9 2019-12-30 Completed [facility] 00:00:00 [facility] HPV9 2019-12-30 Completed [facility] 00:00:00 [facility] HPV9 2019-12-30 Completed [facility] 00:00:00 [facility] HPV9 2019-12-30 Completed [facility] 00:00:00 [facility] HPV9 2019-12-30 Completed [facility] 00:00:00 [facility] HPV9 2019-12-30 Completed [facility] 00:00:00 [facility] HPV9 2019-12-30 Completed [facility] 00:00:00 [facility] HPV9 2019-12-30 Completed [facility] 00:00:00 [facility] HPV9 2019-12-30 Completed [facility] 00:00:00 [facility] HPV9 2019-12-30 Completed [facility] 00:00:00 [facility] HPV9 2019-12-30 Completed [facility] 00:00:00 [facility] HPV9 2019-12-30 Completed [facility] 00:00:00 [facility] HPV9 2019-12-30 Completed [facility] 00:00:00 [facility] HPV9 2019-12-30 Completed [facility] 00:00:00 [facility] HPV9 2019-12-30 Completed [facility] 00:00:00 [facility] HPV9 2019-12-30 Completed [facility] 00:00:00 [facility] HPV9 2019-12-30 Completed [facility] 00:00:00 [facility] HPV9 2019-12-30 Completed [facility] 00:00:00 [facility] HPV9 2019-12-30 Completed [facility] 00:00:00 [facility] HPV9 2019-12-30 Completed [facility] 00:00:00 [facility] HPV9 2019-12-30 Completed [facility] 00:00:00 [facility] HPV9 2019-12-30 Completed [facility] 00:00:00 [facility] HPV9 2019-12-30 Completed [facility] [...] Branch HPV9 2019-12-30 Completed [facility] 00:00:00 [facility] HPV9 2019-12-30 Completed [facility] 00:00:00 [facility] HPV9 2019-12-30 Completed [facility] 00:00:00 [facility] HPV9 2019-12-30 Completed [facility] 00:00:00 [facility] HPV9 2019-12-30 Completed [facility] 00:00:00 [facility] HPV9 2019-12-30 Completed [facility] 00:00:00 [facility] HPV9 2019-12-30 Completed [facility] 00:00:00 [facility] HPV9 2019-12-30 Completed [facility] 00:00:00 [facility] HPV9 2019-12-30 Completed [facility] 00:00:00 [facility] HPV9 2019-12-30 Completed [facility] 00:00:00 [facility] HPV9 2019-12-30 Completed [facility] 00:00:00 [facility] HPV9 2019-12-30 Completed [facility] 00:00:00 [facility] HPV9 2019-12-30 Completed [facility] 00:00:00 [facility] HPV9 2019-12-30 Completed [facility] 00:00:00 [facility] HPV9 2019-12-30 Completed [facility] 00:00:00 [facility] HPV9 2019-09-27 Completed [facility] 00:00:00 [facility] HPV9 2019-09-27 Completed [facility] 00:00:00 [facility] HPV9 2019-09-27 Completed [facility] 00:00:00 [facility] HPV9 2019-09-27 Completed [facility] 00:00:00 [facility] HPV9 2019-09-27 Completed [facility] 00:00:00 [facility] HPV9 2019-09-27 Completed [facility] 00:00:00 [facility] HPV9 2019-09-27 Completed [facility] 00:00:00 [facility] HPV9 2019-09-27 Completed [facility] 00:00:00 [facility] HPV9 2019-09-27 Completed [facility] 00:00:00 [facility] HPV9 2019-09-27 Completed [facility] 00:00:00 [facility] HPV9 2019-09-27 Completed [facility] 00:00:00 [facility] HPV9 2019-09-27 Completed [facility] 00:00:00 [facility] HPV9 2019-09-27 Completed [facility] 00:00:00 [facility] HPV9 2019-09-27 Completed [facility] 00:00:00 [facility] HPV9 2019-09-27 Completed [facility] 00:00:00 [facility] HPV9 2019-09-27 Completed [facility] 00:00:00 [facility] HPV9 2019-09-27 Completed [facility] 00:00:00 [facility] HPV9 2019-09-27 Completed [facility] 00:00:00 [facility] HPV9 2019-09-27 Completed [facility] 00:00:00 [facility] HPV9 2019-09-27 Completed [facility] 00:00:00 [facility] HPV9 2019-09-27 Completed [facility] 00:00:00 [facility] HPV9 2019-09-27 Completed [facility] 00:00:00 [facility] HPV9 2019-09-27 Completed [facility] 00:00:00 [facility] HPV9 2019-09-27 Completed [facility] 00:00:00 [facility] HPV9 2019-09-27 Completed [facility] 00:00:00 [facility] HPV9 2019-09-27 Completed [facility] 00:00:00 [facility] HPV9 2019-09-27 Completed [facility] 00:00:00 [facility] HPV9 2019-09-27 Completed [facility] 00:00:00 [facility] HPV9 2019-09-27 Completed [facility] 00:00:00 [facility] HPV9 2019-09-27 Completed [facility] 00:00:00 [facility] HPV9 2019-09-27 Completed [facility] 00:00:00 [facility] HPV9 2019-09-27 Completed [facility] 00:00:00 [facility] HPV9 2019-09-27 Completed [facility] 00:00:00 [facility] HPV9 2019-09-27 Completed [facility] 00:00:00 [facility] HPV9 2019-09-27 Completed [facility] 00:00:00 [facility] HPV9 2019-09-27 Completed [facility] 00:00:00 [facility] HPV9 2019-09-27 Completed [facility] 00:00:00 [facility] HPV9 2019-09-27 Completed [facility] 00:00:00 [facility] HPV9 2019-09-27 Completed [facility] 00:00:00 [facility] HPV9 2019-09-27 Completed [facility] 00:00:00 [facility] HPV9 2019-09-27 Completed [facility] 00:00:00 [facility] HPV9 2019-09-27 Completed [facility] 00:00:00 [facility] HPV9 2019-09-27 Completed [facility] 00:00:00 [facility] HPV9 2019-09-27 Completed [facility] 00:00:00 [facility] HPV9 2019-09-27 Completed [facility] 00:00:00 [facility] HPV9 2019-09-27 Completed [facility] 00:00:00 [facility] HPV9 2019-09-27 Completed [facility] 00:00:00 [facility] HPV9 2019-09-27 Completed [facility] 00:00:00 [facility] HPV9 2019-09-27 Completed [facility] 00:00:00 [facility] HPV9 2019-09-27 Completed [facility] 00:00:00 [facility] HPV9 2019-09-27 Completed [facility] 00:00:00 [facility] HPV9 2019-09-27 Completed [facility] 00:00:00 [facility] HPV9 2019-09-27 Completed [facility] 00:00:00 [facility] HPV9 2019-09-27 Completed [facility] 00:00:00 [facility] HPV9 2019-09-27 Completed [facility] 00:00:00 [facility] HPV9 2019-09-27 Completed [facility] 00:00:00 [facility] HPV9 2019-09-27 Completed [facility] 00:00:00 [facility] HPV9 2019-09-27 Completed [facility] 00:00:00 [facility] HPV9 2019-09-27 Completed [facility] 00:00:00 [facility] HPV9 2019-09-27 Completed [facility] 00:00:00 [facility] HPV9 2019-09-27 Completed [facility] 00:00:00 [facility] HPV9 2019-09-27 Completed [facility] 00:00:00 [facility] HPV9 2019-09-27 Completed [facility] 00:00:00 [facility] HPV9 2019-09-27 Completed [facility] 00:00:00 [facility] HPV9 2019-09-27 Completed [facility] 00:00:00 [facility] HPV9 2019-09-27 Completed [facility] 00:00:00 [facility] HPV9 2019-09-27 Completed [facility] 00:00:00 [facility] HPV9 2019-09-27 Completed [facility] 00:00:00 [facility] HPV9 2019-09-27 Completed [facility] 00:00:00 [facility] HPV9 2019-09-27 Completed [facility] 00:00:00 [facility] HPV9 2019-09-27 Completed [facility] 00:00:00 [facility] HPV9 2019-09-27 Completed [facility] 00:00:00 [facility] HPV9 2019-09-27 Completed [facility] 00:00:00 [facility] HPV9 2019-09-27 Completed [facility] 00:00:00 [facility] HPV9 2019-09-27 Completed [facility] 00:00:00 [facility] HPV9 2019-09-27 Completed [facility] 00:00:00 [facility] HPV9 2019-09-27 Completed [facility] 00:00:00 [facility] HPV9 2019-09-27 Completed [facility] 00:00:00 [facility] HPV9 2019-09-27 Completed [facility] 00:00:00 [facility] HPV9 2019-09-27 Completed [facility] 00:00:00 [facility] HPV9 2019-09-27 Completed [facility] 00:00:00 [facility] HPV9 2019-09-27 Completed [facility] 00:00:00 [facility] HPV9 2019-09-27 Completed [facility] 00:00:00 [facility] HPV9 2019-09-27 Completed [facility] 00:00:00 [facility] HPV9 2019-09-27 Completed [facility] 00:00:00 [facility] HPV9 2019-09-27 Completed [facility] 00:00:00 [facility] HPV9 2019-09-27 Completed [facility] 00:00:00 [facility] HPV9 2019-09-27 Completed [facility] 00:00:00 [facility] HPV9 2019-09-27 Completed [facility] 00:00:00 [facility] HPV9 2019-09-27 Completed [facility] 00:00:00 [facility] HPV9 2019-09-27 Completed [facility] 00:00:00 [facility] HPV9 2019-09-27 Completed [facility] 00:00:00 [facility] HPV9 2019-09-27 Completed [facility] 00:00:00 [facility] HPV9 2019-09-27 Completed [facility] 00:00:00 [facility] HPV9 2019-09-27 Completed [facility] 00:00:00 [facility] HPV9 2019-09-27 Completed [facility] 00:00:00 [facility] HPV9 2019-09-27 Completed [facility] of [...] Branch HPV9 2019-05-17 Completed [facility] 00:00:00 [facility] HPV9 2019-05-17 Completed [facility] 00:00:00 [facility] HPV9 2019-05-17 Completed [facility] 00:00:00 [facility] HPV9 2019-05-17 Completed [facility] 00:00:00 [facility] HPV9 2019-05-17 Completed [facility] 00:00:00 [facility] HPV9 2019-05-17 Completed [facility] 00:00:00 [facility] HPV9 2019-05-17 Completed [facility] 00:00:00 [facility] HPV9 2019-05-17 Completed [facility] 00:00:00 [facility] HPV9 2019-05-17 Completed [facility] 00:00:00 [facility] HPV9 2019-05-17 Completed [facility] 00:00:00 [facility] HPV9 2019-05-17 Completed [facility] 00:00:00 [facility] TDAP (ADACEL) 2018-02-15 Completed [facility] of VACCINE 00:00:00 [facility] TDAP (ADACEL) 2018-02-15 Completed [facility] VACCINE 00:00:00 [facility] TDAP (ADACEL) 2018-02-15 Completed [facility] VACCINE 00:00:00 [facility] TDAP (ADACEL) 2018-02-15 Completed [facility] VACCINE 00:00:00 [facility] TDAP (ADACEL) 2018-02-15 Completed [facility] VACCINE 00:00:00 [facility] TDAP (ADACEL) 2018-02-15 Completed [facility] VACCINE 00:00:00 [facility] TDAP (ADACEL) 2018-02-15 Completed [facility] VACCINE 00:00:00 [facility] TDAP (ADACEL) 2018-02-15 Completed [facility] VACCINE 00:00:00 [facility] TDAP (ADACEL) 2018-02-15 Completed [facility] VACCINE 00:00:00 [facility] TDAP (ADACEL) 2018-02-15 Completed [facility] VACCINE 00:00:00 [facility] TDAP (ADACEL) 2018-02-15 Completed [facility] VACCINE 00:00:00 [facility] TDAP (ADACEL) 2018-02-15 Completed [facility] VACCINE 00:00:00 [facility] TDAP (ADACEL) 2018-02-15 Completed [facility] VACCINE 00:00:00 [facility] TDAP (ADACEL) 2018-02-15 Completed [facility] VACCINE 00:00:00 [facility] TDAP (ADACEL) 2018-02-15 Completed [facility] VACCINE 00:00:00 [facility] TDAP (ADACEL) 2018-02-15 Completed [facility] VACCINE 00:00:00 [facility] TDAP (ADACEL) 2018-02-15 Completed [facility] VACCINE 00:00:00 [facility] TDAP (ADACEL) 2018-02-15 Completed [facility] VACCINE 00:00:00 [facility] TDAP (ADACEL) 2018-02-15 Completed [facility] VACCINE 00:00:00 [facility] TDAP (ADACEL) 2018-02-15 Completed [facility] VACCINE 00:00:00 [facility] TDAP (ADACEL) 2018-02-15 Completed [facility] VACCINE 00:00:00 [facility] TDAP (ADACEL) 2018-02-15 Completed [facility] VACCINE 00:00:00 [facility] TDAP (ADACEL) 2018-02-15 Completed [facility] VACCINE 00:00:00 [facility] TDAP (ADACEL) 2018-02-15 Completed [facility] VACCINE 00:00:00 [facility] TDAP (ADACEL) 2018-02-15 Completed [facility] VACCINE 00:00:00 [facility] TDAP (ADACEL) 2018-02-15 Completed [facility] VACCINE 00:00:00 [facility] TDAP (ADACEL) 2018-02-15 Completed [facility] VACCINE 00:00:00 [facility] TDAP (ADACEL) 2018-02-15 Completed [facility] VACCINE 00:00:00 [facility] TDAP (ADACEL) 2018-02-15 Completed [facility] VACCINE 00:00:00 [facility] TDAP (ADACEL) 2018-02-15 Completed [facility] VACCINE 00:00:00 [facility] TDAP (ADACEL) 2018-02-15 Completed [facility] VACCINE 00:00:00 [facility] TDAP (ADACEL) 2018-02-15 Completed [facility] VACCINE 00:00:00 [facility] TDAP (ADACEL) 2018-02-15 Completed [facility] VACCINE 00:00:00 [facility] TDAP (ADACEL) 2018-02-15 Completed [facility] VACCINE 00:00:00 [facility] TDAP (ADACEL) 2018-02-15 Completed [facility] VACCINE 00:00:00 [facility] TDAP (ADACEL) 2018-02-15 Completed [facility] VACCINE 00:00:00 [facility] TDAP (ADACEL) 2018-02-15 Completed [facility] VACCINE 00:00:00 [facility] TDAP (ADACEL) 2018-02-15 Completed [facility] VACCINE 00:00:00 [facility] TDAP (ADACEL) 2018-02-15 Completed [facility] VACCINE 00:00:00 [facility] TDAP (ADACEL) 2018-02-15 Completed [facility] VACCINE 00:00:00 [facility] TDAP (ADACEL) 2018-02-15 Completed [facility] VACCINE 00:00:00 [facility] TDAP (ADACEL) 2018-02-15 Completed [facility] VACCINE 00:00:00 [facility] TDAP (ADACEL) 2018-02-15 Completed [facility] VACCINE 00:00:00 [facility] TDAP (ADACEL) 2018-02-15 Completed [facility] VACCINE 00:00:00 [facility] TDAP (ADACEL) 2018-02-15 Completed [facility] VACCINE 00:00:00 [facility] TDAP (ADACEL) 2018-02-15 Completed [facility] VACCINE 00:00:00 [facility] TDAP (ADACEL) 2018-02-15 Completed [facility] VACCINE 00:00:00 [facility] TDAP (ADACEL) 2018-02-15 Completed [facility] VACCINE 00:00:00 [facility] TDAP (ADACEL) 2018-02-15 Completed [facility] VACCINE 00:00:00 [facility] TDAP (ADACEL) 2018-02-15 Completed [facility] VACCINE 00:00:00 [facility] TDAP (ADACEL) 2018-02-15 Completed [facility] VACCINE 00:00:00 [facility] TDAP (ADACEL) 2018-02-15 Completed [facility] VACCINE 00:00:00 [facility] TDAP (ADACEL) 2018-02-15 Completed [facility] VACCINE 00:00:00 [facility] TDAP (ADACEL) 2018-02-15 Completed [facility] VACCINE 00:00:00 [facility] TDAP (ADACEL) 2018-02-15 Completed University [...] (ADACEL) 2018-02-15 Completed [facility] VACCINE 00:00:00 [facility] TDAP (ADACEL) 2018-02-15 Completed [facility] VACCINE 00:00:00 [facility] TDAP (ADACEL) 2018-02-15 Completed [facility] VACCINE 00:00:00 [facility] TDAP (ADACEL) 2018-02-15 Completed [facility] VACCINE 00:00:00 [facility] TDAP (ADACEL) 2018-02-15 Completed [facility] VACCINE 00:00:00 [facility] TDAP (ADACEL) 2018-02-15 Completed [facility] VACCINE 00:00:00 [facility] TDAP (ADACEL) 2018-02-15 Completed [facility] VACCINE 00:00:00 [facility] TDAP (ADACEL) 2018-02-15 Completed [facility] VACCINE 00:00:00 [facility] TDAP (ADACEL) 2018-02-15 Completed [facility] VACCINE 00:00:00 [facility] TDAP (ADACEL) 2018-02-15 Completed [facility] VACCINE 00:00:00 [facility] TDAP (ADACEL) 2018-02-15 Completed [facility] VACCINE 00:00:00 [facility] TDAP (ADACEL) 2018-02-15 Completed [facility] VACCINE 00:00:00 [facility] TDAP (ADACEL) 2018-02-15 Completed [facility] VACCINE 00:00:00 [facility] TDAP (ADACEL) 2018-02-15 Completed [facility] VACCINE 00:00:00 [facility] TDAP (ADACEL) 2018-02-15 Completed [facility] VACCINE 00:00:00 [facility] TDAP (ADACEL) 2018-02-15 Completed [facility] VACCINE 00:00:00 [facility] TDAP (ADACEL) 2018-02-15 Completed [facility] VACCINE 00:00:00 [facility] TDAP (ADACEL) 2018-02-15 Completed [facility] VACCINE 00:00:00 [facility] TDAP (ADACEL) 2018-02-15 Completed [facility] VACCINE 00:00:00 [facility] TDAP (ADACEL) 2018-02-15 Completed [facility] VACCINE 00:00:00 [facility] TDAP (ADACEL) 2018-02-15 Completed [facility] VACCINE 00:00:00 [facility] TDAP (ADACEL) 2018-02-15 Completed [facility] VACCINE 00:00:00 [facility] TDAP (ADACEL) 2018-02-15 Completed [facility] VACCINE 00:00:00 [facility] TDAP (ADACEL) 2018-02-15 Completed [facility] VACCINE 00:00:00 [facility] TDAP (ADACEL) 2018-02-15 Completed [facility] VACCINE 00:00:00 [facility] TDAP (ADACEL) 2018-02-15 Completed [facility] VACCINE 00:00:00 [facility] TDAP (ADACEL) 2018-02-15 Completed [facility] VACCINE 00:00:00 [facility] TDAP (ADACEL) 2018-02-15 Completed [facility] VACCINE 00:00:00 [facility] TDAP (ADACEL) 2018-02-15 Completed [facility] VACCINE 00:00:00 [facility] TDAP (ADACEL) 2018-02-15 Completed [facility] VACCINE 00:00:00 [facility] TDAP (ADACEL) 2018-02-15 Completed [facility] VACCINE 00:00:00 [facility] TDAP (ADACEL) 2018-02-15 Completed [facility] VACCINE 00:00:00 [facility] TDAP (ADACEL) 2018-02-15 Completed [facility] VACCINE 00:00:00 [facility] TDAP (ADACEL) 2018-02-15 Completed [facility] VACCINE 00:00:00 [facility] TDAP (ADACEL) 2018-02-15 Completed [facility] VACCINE 00:00:00 [facility] TDAP (ADACEL) 2018-02-15 Completed [facility]ACCINE 00:[facility]:00 [facility] Influenza Virus 2017-12-14 Completed [facility] Vaccine [facility] IM 3+ 00:00:00 [facility] Influenza Virus 2017-12-14 Completed [facility] of Vaccine [facility] IM 3+ 00:00:00 [facility] Influenza Virus 2017-12-14 Completed [facility] of Vaccine [facility] IM 3+ 00:00:00 [facility] Influenza Virus 2017-12-14 Completed [facility] Vaccine [facility] IM 3+ 00:00:00 [facility] Influenza Virus 2017-12-14 Completed [facility] of Vaccine [facility] IM 3+ 00:00:00 [facility] Influenza Virus 2017-12-14 Completed [facility] Vaccine [facility] IM 3+ 00:00:00 [facility] Influenza Virus 2017-12-14 Completed [facility] of Vaccine [facility] IM 3+ 00:00:00 [facility] Influenza Virus 2017-12-14 Completed [facility] of Vaccine [facility] IM 3+ 00:00:00 [facility] Influenza Virus 2017-12-14 Completed [facility] of Vaccine [facility] IM 3+ 00:00:00 [facility] Influenza Virus 2017-12-14 Completed [facility] of Vaccine Quad IM 3+ 00:00:00 [facility] Influenza Virus 2017-12-14 Completed [facility] of Vaccine Quad IM 3+ 00:00:00 [facility] Influenza Virus 2017-12-14 Completed [facility] of Vaccine Quad IM 3+ 00:00:00 [facility] Influenza Virus 2017-12-14 Completed [facility] of Vaccine [facility] IM 3+ 00:00:00 [facility] Influenza Virus 2017-12-14 Completed [facility] of Vaccine Quad IM 3+ 00:00:00 [facility] Influenza Virus 2017-12-14 Completed [facility] of Vaccine Quad IM 3+ 00:00:00 [facility] Influenza Virus 2017-12-14 Completed [facility] of Vaccine Quad IM 3+ 00:00:00 [facility] Influenza Virus 2017-12-14 Completed [facility] of Vaccine [facility] IM 3+ 00:00:00 [facility] Influenza Virus 2017-12-14 Completed [facility] of Vaccine Quad IM 3+ 00:00:00 [facility] Influenza Virus 2017-12-14 Completed [facility] of Vaccine Quad IM 3+ 00:00:00 [facility] Influenza Virus 2017-12-14 Completed [facility] Vaccine [facility] IM 3+ 00:00:00 [facility] Influenza Virus 2017-12-14 Completed [facility] Vaccine Quad IM 3+ 00:00:00 [facility] Influenza Virus 2017-12-14 Completed [facility] Vaccine Quad IM 3+ 00:00:00 [facility] Influenza Virus 2017-12-14 Completed [facility] of Vaccine Quad IM 3+ 00:00:00 [facility] Influenza Virus 2017-12-14 Completed [facility] Vaccine [facility] IM 3+ 00:00:00 [facility] Influenza Virus 2017-12-14 Completed [facility] of Vaccine [facility] IM 3+ 00:00:00 [facility] Influenza Virus 2017-12-14 Completed [facility] of Vaccine [facility] IM 3+ 00:00:00 [facility] Influenza Virus 2017-12-14 Completed [facility] of Vaccine Quad IM 3+ 00:00:00 [facility] Influenza Virus 2017-12-14 Completed [facility] Vaccine Quad IM 3+ 00:00:00 [facility] Influenza Virus 2017-12-14 Completed [facility] Vaccine [facility] IM 3+ 00:00:00 [facility] Influenza Virus 2017-12-14 Completed [facility] Vaccine Quad IM 3+ 00:00:00 [facility] Influenza Virus 2017-12-14 Completed [facility] of Vaccine [facility] IM 3+ 00:00:00 [facility] Influenza Virus 2017-12-14 Completed [facility] Vaccine [facility] IM 3+ 00:00:00 [facility] Influenza Virus 2017-12-14 Completed [facility] Vaccine [facility] IM 3+ 00:00:00 [facility] Influenza Virus 2017-12-14 Completed [facility] Vaccine Quad IM 3+ 00:00:00 [facility] Influenza Virus 2017-12-14 Completed [facility] Vaccine Quad IM 3+ 00:00:00 [facility] Influenza Virus 2017-12-14 Completed [facility] Vaccine Quad IM 3+ 00:00:00 [facility] Influenza Virus 2017-12-14 Completed [facility] Vaccine [facility] IM 3+ 00:00:00 [facility] Influenza Virus 2017-12-14 Completed [facility] Vaccine [facility] IM 3+ 00:00:00 [facility] Influenza Virus 2017-12-14 Completed [facility] of Vaccine Quad IM 3+ 00:00:00 [facility] Influenza Virus 2017-12-14 Completed [facility] of Vaccine Quad IM 3+ 00:00:00 [facility] Influenza Virus 2017-12-14 Completed [facility] of Vaccine Quad IM 3+ 00:00:00 [facility] Influenza Virus 2017-12-14 Completed [facility] Vaccine [facility] IM 3+ 00:00:00 [facility] Influenza Virus 2017-12-14 Completed [facility] of Vaccine [facility] IM 3+ 00:00:00 [facility] Influenza Virus 2017-12-14 Completed [facility] Vaccine [facility] IM 3+ 00:00:00 [facility] Influenza Virus 2017-12-14 Completed [facility] of Vaccine [facility] IM 3+ 00:00:00 [facility] Influenza Virus 2017-12-14 Completed [facility] Vaccine Quad IM 3+ 00:00:00 [facility] Influenza Virus 2017-12-14 Completed [facility] of Vaccine Quad IM 3+ 00:00:00 [facility] Influenza Virus 2017-12-14 Completed [facility] Vaccine [facility] IM 3+ 00:00:00 [facility] Influenza Virus 2017-12-14 Completed [facility] of Vaccine [facility] IM 3+ 00:00:00 [facility] Influenza Virus 2017-12-14 Completed [facility] Vaccine Quad IM 3+ 00:00:00 [facility] Influenza Virus 2017-12-14 Completed [facility] of Vaccine [facility] IM 3+ 00:00:00 [facility] Influenza Virus 2017-12-14 Completed [facility] of Vaccine Quad IM 3+ 00:00:00 [facility] Influenza Virus 2017-12-14 Completed [facility] of Vaccine Quad IM 3+ 00:00:00 [facility] Influenza Virus 2017-12-14 Completed [facility] of Vaccine Quad IM 3+ 00:00:00 [facility] Influenza Virus 2017-12-14 Completed [facility] Vaccine Quad IM 3+ 00:00:00 [facility] Influenza Virus 2017-12-14 Completed [facility] of Vaccine [facility] IM 3+ 00:00:00 [facility] Influenza Virus 2017-12-14 Completed [facility] of Vaccine Quad IM 3+ 00:00:00 [facility] Influenza Virus 2017-12-14 Completed [facility] of Vaccine Quad IM 3+ 00:00:00 [facility] Influenza Virus 2017-12-14 Completed [facility] of Vaccine [facility] IM 3+ 00:00:00 [facility] Influenza Virus 2017-12-14 Completed [facility] Vaccine [facility] IM 3+ 00:00:00 [facility] Influenza Virus 2017-12-14 Completed [facility] of Vaccine Quad IM 3+ 00:00:00 [facility] Influenza Virus 2017-12-14 Completed [facility] Vaccine [facility] IM 3+ 00:00:00 [facility] Influenza Virus 2017-12-14 Completed [facility] of Vaccine [facility] IM 3+ 00:00:00 [facility] Influenza Virus 2017-12-14 Completed [facility] of Vaccine Quad IM 3+ 00:00:00 [facility] Influenza Virus 2017-12-14 Completed [facility] of Vaccine Quad IM 3+ 00:00:00 [facility] Influenza Virus 2017-12-14 Completed [facility] of Vaccine Quad IM 3+ 00:00:00 [facility] Influenza Virus 2017-12-14 Completed [facility] of Vaccine [facility] IM 3+ 00:00:00 [facility] Influenza Virus 2017-12-14 Completed [facility] Vaccine Quad IM 3+ 00:00:00 [facility] Influenza Virus 2017-12-14 Completed [facility] of Vaccine Quad IM 3+ 00:00:00 [facility] Influenza Virus 2017-12-14 Completed [facility] of Vaccine Quad IM 3+ 00:00:00 [facility] Influenza Virus 2017-12-14 Completed [facility] of Vaccine Quad IM 3+ 00:00:00 [facility] Influenza Virus 2017-12-14 Completed [facility] of Vaccine Quad IM 3+ 00:00:00 [facility] Influenza Virus 2017-12-14 Completed [facility] of Vaccine Quad IM 3+ 00:00:00 [facility] Influenza Virus 2017-12-14 Completed [facility] of Vaccine Quad IM 3+ 00:00:00 [facility] Influenza Virus 2017-12-14 Completed [facility] of Vaccine Quad IM 3+ 00:00:00 [facility] Influenza Virus 2017-12-14 Completed [facility] of Vaccine Quad IM 3+ 00:00:00 [facility] Influenza Virus 2017-12-14 Completed [facility] of Vaccine Quad IM 3+ 00:00:00 [facility] Influenza Virus 2017-12-14 Completed [facility] of Vaccine Quad IM 3+ 00:00:00 [facility] Influenza Virus 2017-12-14 Completed [facility] of Vaccine Quad IM 3+ 00:00:00 [facility] Influenza Virus 2017-12-14 Completed [facility] Vaccine [facility] IM 3+ 00:00:00 [facility] Influenza Virus 2017-12-14 Completed [facility] of Vaccine Quad IM 3+ 00:00:00 [facility] Influenza Virus 2017-12-14 Completed [facility] of Vaccine Quad IM 3+ 00:00:00 [facility] Influenza Virus 2017-12-14 Completed [facility] of Vaccine Quad IM 3+ 00:00:00 [facility] Influenza Virus 2017-12-14 Completed [facility] of Vaccine Quad IM 3+ 00:00:00 [facility] Influenza Virus 2017-12-14 Completed [facility] of Vaccine Quad IM 3+ 00:00:00 [facility] Influenza Virus 2017-12-14 Completed [facility] of Vaccine Quad IM 3+ 00:00:00 [facility] Influenza Virus 2017-12-14 Completed [facility] of Vaccine Quad IM 3+ 00:00:00 [facility] Influenza Virus 2017-12-14 Completed [facility] of Vaccine Quad IM 3+ 00:00:00 [facility] Influenza Virus 2017-12-14 Completed [facility] of Vaccine Quad IM 3+ 00:00:00 [facility] Influenza Virus 2017-12-14 Completed [facility] of Vaccine Quad IM 3+ 00:00:00 [facility] Influenza Virus 2017-12-14 Completed [facility] of Vaccine Quad IM 3+ 00:00:00 [facility] Influenza Virus 2017-12-14 Completed [facility] of Vaccine Quad IM 3+ 00:00:00 [facility] Influenza Virus 2017-12-14 Completed [facility] of Vaccine Quad IM 3+ 00:00:00 [facility] Influenza Virus 2017-12-14 Completed [facility] of Vaccine Quad IM 3+ 00:00:00 [facility] Influenza Virus 2017-12-14 Completed [facility] of Vaccine Quad IM 3+ 00:00:00 [facility] Influenza Virus 2017-12-14 Completed [facility] Vaccine Quad IM 3+ 00:00:00 [facility] Influenza Virus 2017-12-14 Completed [facility] Vaccine [facility] IM 3+ 00:00:00 [facility] Varicella 2016-05-24 Completed [facility] [...] TDAP 2016-04-03 Completed [facility] TD[facility] 2016-04-03 Completed [facility] 00[facility]00 [facility] TDAP 2016-04-03 Completed [facility] 00:00:00 [facility] TDAP 2016-04-03 Completed [facility] 00[facility]00:00 [facility] TDAP 2016-04-03 Completed [facility] 00:00:00 [facility] TDAP 2016-04-03 Completed [facility] 00:00:00 [facility] TDAP 2016-04-03 Completed [facility] 00:00:00 [facility] TDAP 2016-04-03 Completed [facility] 00:00:00 [facility] TDAP 2016-04-03 Completed [facility] 00:00:00 [facility] TDAP 2016-04-03 Completed [facility] 00:00:00 [facility] TDAP 2016-04-03 Completed [facility] 00:00:00 [facility] TDAP 2016-04-03 Completed [facility] 00:00:00 [facility] TDAP 2016-04-03 Completed [facility] 00:00:00 [facility] TDAP 2016-04-03 Completed [facility] 00:00:00 [facility] TDAP 2016-04-03 Completed [facility] 00:00:00 [facility] TDAP 2016-04-03 Completed [facility] 00:00:00 [facility] TDAP 2016-04-03 Completed [facility] 00:00:00 [facility] TDAP 2016-04-03 Completed [facility] 00:00:00 [facility] TDAP 2016-04-03 Completed [facility] 00:00:00 [facility] TDAP 2016-04-03 Completed [facility] 00:00:00 [facility] TDAP 2016-04-03 Completed [facility] 00:00:00 [facility] TDAP 2016-04-03 Completed [facility] 00:00:00 [facility] TDAP 2016-04-03 Completed [facility] 00:00:00 [facility] TDAP 2016-04-03 Completed [facility] 00:00:00 [facility] TDAP 2016-04-03 Completed [facility] 00:00:00 [facility] TDAP 2016-04-03 Completed [facility] 00[facility]00:00 [facility] TDAP 2016-04-03 Completed [facility] 00:00:00 [facility] TDAP 2016-04-03 Completed [facility] 00:00:00 [facility] TDAP 2016-04-03 Completed [facility] 00:00:00 [facility] TDAP 2016-04-03 Completed [facility] 00:00:00 [facility] TDAP 2016-04-03 Completed [facility] 00:00:00 [facility] TDAP 2016-04-03 Completed [facility] 00:00:00 [facility] TDAP 2016-04-03 Completed [facility] 00:00:00 [facility] TDAP 2016-04-03 Completed [facility] 00:00:00 [facility] TDAP 2016-04-03 Completed [facility] 00:00:00 [facility] TDAP 2016-04-03 Completed [facility] 00:00:00 [facility] TDAP 2016-04-03 Completed [facility] 00:00:00 [facility] TDAP 2016-04-03 Completed [facility] 00:00:00 [facility] TDAP 2016-04-03 Completed [facility] 00:00:00 [facility] TDAP 2016-04-03 Completed [facility] 00:00:00 [facility] TDAP 2016-04-03 Completed [facility] 00:00:00 [facility] TDAP 2016-04-03 Completed [facility] 00:00:00 [facility] TDAP 2016-04-03 Completed [facility] 00:00:00 [facility] TDAP 2016-04-03 Completed [facility] 00:00:00 [facility] TDAP 2016-04-03 Completed [facility] 00:00:00 [facility] TDAP 2016-04-03 Completed [facility] 00:00:00 [facility] TDAP 2016-04-03 Completed [facility] 00:00:00 [facility] TDAP 2016-04-03 Completed [facility] 00:00:00 [facility] TDAP 2016-04-03 Completed [facility] 00:00:00 [facility] TDAP 2016-04-03 Completed [facility] 00:00:00 [facility] TDAP 2016-04-03 Completed [facility] 00:00:00 [facility] TDAP 2016-04-03 Completed [facility] 00:00:00 [facility] TDAP 2016-04-03 Completed [facility] 00:00:00 [facility] TDAP 2016-04-03 Completed [facility] 00:00:00 [facility] TDAP 2016-04-03 Completed [facility] 00:00:00 [facility] TDAP 2016-04-03 Completed [facility] 00:00:00 [facility] TDAP 2016-04-03 Completed [facility] 00:00:00 [facility] TDAP 2016-04-03 Completed [facility] 00:00:00 [facility] TDAP 2016-04-03 Completed [facility] 00:00:00 [facility] TDAP 2016-04-03 Completed [facility] 00:00:00 [facility] TDAP 2016-04-03 Completed [facility] 00:00:00 [facility] TDAP 2016-04-03 Completed [facility] 00:00:00 [facility] TDAP 2016-04-03 Completed [facility] 00:00:00 [facility] TDAP 2016-04-03 Completed [facility] 00:00:00 [facility] TDAP 2016-04-03 Completed [facility] 00:00:00 [facility] TDAP 2016-04-03 Completed [facility] 00:00:00 [facility] TDAP 2016-04-03 Completed [facility] 00:00:00 [facility] TDAP 2016-04-03 Completed [facility] 00:00:00 [facility] TDAP 2016-04-03 Completed [facility] 00:00:00 [facility] TDAP 2016-04-03 Completed [facility] 00:00:00 [facility] TDAP 2016-04-03 Completed [facility] 00[facility]00:00 [facility] TDAP 2016-04-03 Completed [facility] 00:00:00 [facility] TDAP 2016-04-03 Completed [facility] 00:00:00 [facility] TDAP 2016-04-03 Completed [facility] 00:00:00 [facility] TDAP 2016-04-03 Completed [facility] 00:00:00 [facility] TDAP 2016-04-03 Completed [facility] 00:00:00 [facility] TDAP 2016-04-03 Completed [facility] 00:00:00 [facility] TDAP 2016-04-03 Completed [facility] 00:00:00 [facility] TDAP 2016-04-03 Completed [facility] 00:00:00 [facility] TDAP 2016-04-03 Completed [facility] 00:00:00 [facility] TDAP 2016-04-03 Completed [facility] 00:00:00 [facility] TDAP 2016-04-03 Completed [facility] 00:00:00 [facility] TDAP 2016-04-03 Completed [facility] 00:00:00 [facility] TDAP 2016-04-03 Completed [facility] 00:00:00 [facility] TDAP 2016-04-03 Completed [facility] 00:00:00 [facility] TDAP 2016-04-03 Completed [facility] 00:00:00 [facility] TDAP 2016-04-03 Completed [facility] 00:00:00 [facility] TDAP 2016-04-03 Completed [facility] 00:00:00 [facility] TDAP 2016-04-03 Completed [facility] 00:00:00 [facility] TDAP 2016-04-03 Completed [facility] 00:00:00 [facility] TDAP 2016-04-03 Completed [facility] 00:00:00 [facility] TDAP 2016-04-03 Completed [facility] 00:00:00 [facility] TDAP 2016-04-03 Completed [facility] 00:00:00 [facility] TDAP 2016-04-03 Completed [facility] 00:00:00 [facility] TDAP 2016-04-03 Completed [facility] 00:00:00 [facility] TDAP 2016-04-03 Completed [facility] 00:00:00 [facility] TDAP 2016-04-03 Completed [facility] 00:00:00 [facility] Rho (d) Immune 2016-03-27 Completed [facility] Globulin 00:00:00 [facility] Rho (d) Immune 2016-03-27 Completed [facility] Globulin 00:00:00 [facility] Rho (d) Immune 2016-03-27 Completed [facility] Globulin 00:00:00 [facility] Rho (d) Immune 2016-03-27 Completed [facility] Globulin 00:00:00 [facility] Rho (d) Immune 2016-03-27 Completed [facility] Globulin 00:00:00 [facility] Rho (d) Immune 2016-03-27 Completed [facility] Globulin 00:00:00 [facility] Rho (d) Immune 2016-03-27 Completed [facility] Globulin 00:00:00 [facility] Rho (d) Immune 2016-03-27 Completed [facility] Globulin 00:00:00 [facility] Rho (d) Immune 2016-03-27 Completed [facility] Globulin 00:00:00 [facility] Rho (d) Immune 2016-03-27 Completed [facility] Globulin 00:00:00 [facility] Rho (d) Immune 2016-03-27 Completed [facility] Globulin 00:00:00 [facility] Rho (d) Immune 2016-03-27 Completed [facility] Globulin 00:00:00 [facility] Rho (d) Immune 2016-03-27 Completed [facility] Globulin 00:00:00 [facility] Rho (d) Immune 2016-03-27 Completed [facility] Globulin 00:00:00 [facility] Rho (d) Immune 2016-03-27 Completed [facility] Globulin 00:00:00 [facility] Rho (d) Immune 2016-03-27 Completed [facility] Globulin 00:00:00 [facility] Rho (d) Immune 2016-03-27 Completed [facility] Globulin 00:00:00 [facility] Rho (d) Immune 2016-03-27 Completed [facility] Globulin 00:00:00 [facility] Rho (d) Immune 2016-03-27 Completed [facility] Globulin 00:00:00 [facility] Rho (d) Immune 2016-03-27 Completed [facility] Globulin 00:00:00 [facility] Rho (d) Immune 2016-03-27 Completed [facility] Globulin 00:00:00 [facility] Rho (d) Immune 2016-03-27 Completed [facility] Globulin 00:00:00 [facility] Rho (d) Immune 2016-03-27 Completed [facility] Globulin 00:00:00 [facility] Rho (d) Immune 2016-03-27 Completed [facility] Globulin 00:00:00 [facility] Rho (d) Immune 2016-03-27 Completed [facility] Globulin 00:00:00 [facility] Rho (d) Immune 2016-03-27 Completed [facility] Globulin 00:00:00 [facility] Rho (d) Immune 2016-03-27 Completed [facility] Globulin 00:00:00 [facility] Rho (d) Immune 2016-03-27 Completed [facility] Globulin 00:00:00 [facility] Rho (d) Immune 2016-03-27 Completed [facility] Globulin 00:00:00 [facility] Rho (d) Immune 2016-03-27 Completed [facility] Globulin 00:00:00 [facility] Rho (d) Immune 2016-03-27 Completed [facility] Globulin 00:00:00 [facility] Rho (d) Immune 2016-03-27 Completed [facility] Globulin 00:00:00 [facility] Rho (d) Immune 2016-03-27 Completed [facility] Globulin 00:00:00 [facility] Rho (d) Immune 2016-03-27 Completed [facility] Globulin 00:00:00 [facility] Rho (d) Immune 2016-03-27 Completed [facility] Globulin 00:00:00 [facility] Rho (d) Immune 2016-03-27 Completed [facility] Globulin 00:00:00 [facility] Rho (d) Immune 2016-03-27 Completed [facility] Globulin 00:00:00 [facility] Rho (d) Immune 2016-03-27 Completed [facility] 00[facility]00:00 [facility] Rho (d) Immune 2016-03-27 Completed [facility] 00:00:00 [facility] Rho (d) Immune 2016-03-27 Completed [facility] 00:00:00 [facility] Rho (d) Immune 2016-03-27 Completed [facility] 00:00:00 [facility] Rho (d) Immune 2016-03-27 Completed [facility] 00:00:00 [facility] Rho (d) Immune 2016-03-27 Completed [facility] 00:00:00 [facility] Rho (d) Immune 2016-03-27 Completed [facility] 00:00:00 [facility] Rho (d) Immune 2016-03-27 Completed [facility] 00:00:00 [facility] Rho (d) Immune 2016-03-27 Completed [facility] 00:00:00 [facility] Rho (d) Immune 2016-03-27 Completed [facility] 00:00:00 [facility] Rho (d) Immune 2016-03-27 Completed [facility] 00:00:00 [facility] Rho (d) Immune 2016-03-27 Completed [facility] 00:00:00 [facility] Rho (d) Immune 2016-03-27 Completed [facility] 00:00:00 [facility] Rho (d) Immune 2016-03-27 Completed [facility] 00:00:00 [facility] Rho (d) Immune 2016-03-27 Completed [facility] 00:00:00 [facility] Rho (d) Immune 2016-03-27 Completed [facility] 00:00:00 [facility] Rho (d) Immune 2016-03-27 Completed [facility] 00:00:00 [facility] Rho (d) Immune 2016-03-27 Completed [facility] 00:00:00 [facility] Rho (d) Immune 2016-03-27 Completed [facility] 00:00:00 [facility] Rho (d) Immune 2016-03-27 Completed [facility] 00:00:00 [facility] Rho (d) Immune 2016-03-27 Completed [facility] 00:00:00 [facility] Rho (d) Immune 2016-03-27 Completed [facility] 00:00:00 [facility] Rho (d) Immune 2016-03-27 Completed [facility] 00:00:00 [facility] Rho (d) Immune 2016-03-27 Completed [facility] 00:00:00 [facility] Rho (d) Immune 2016-03-27 Completed [facility] 00:00:00 [facility] Rho (d) Immune 2016-03-27 Completed [facility] 00:00:00 [facility] Rho (d) Immune 2016-03-27 Completed [facility] 00:00:00 [facility] Rho (d) Immune 2016-03-27 Completed [facility] 00:00:00 [facility] Rho (d) Immune 2016-03-27 Completed [facility] 00:00:00 [facility] Rho (d) Immune 2016-03-27 Completed [facility] 00:00:00 [facility] Rho (d) Immune 2016-03-27 Completed [facility] 00:00:00 [facility] Rho (d) Immune 2016-03-27 Completed [facility] 00:00:00 [facility] Rho (d) Immune 2016-03-27 Completed [facility] 00:00:00 [facility] Rho (d) Immune 2016-03-27 Completed [facility] 00:00:00 [facility] Rho (d) Immune 2016-03-27 Completed [facility] 00:00:00 [facility] Rho (d) Immune 2016-03-27 Completed [facility] 00:00:00 [facility] Rho (d) Immune 2016-03-27 Completed [facility] 00:00:00 [facility] Rho (d) Immune 2016-03-27 Completed [facility] 00:00:00 [facility] Rho (d) Immune 2016-03-27 Completed [facility] 00:00:00 [facility] Rho (d) Immune 2016-03-27 Completed [facility] 00:00:00 [facility] Rho (d) Immune 2016-03-27 Completed [facility] 00:00:00 [facility] Rho (d) Immune 2016-03-27 Completed [facility] 00:00:00 [facility] Rho (d) Immune 2016-03-27 Completed [facility] 00:00:00 [facility] Rho (d) Immune 2016-03-27 Completed [facility] 00:00:00 [facility] Rho (d) Immune 2016-03-27 Completed [facility] 00:00:00 [facility] Rho (d) Immune 2016-03-27 Completed [facility] 00:00:00 [facility] Rho (d) Immune 2016-03-27 Completed [facility] 00:00:00 [facility] Rho (d) Immune 2016-03-27 Completed [facility] 00:00:00 [facility] Rho (d) Immune 2016-03-27 Completed [facility] 00:00:00 [facility] Rho (d) Immune 2016-03-27 Completed [facility] 00:00:00 [facility] Rho (d) Immune 2016-03-27 Completed [facility] 00:00:00 [facility] Rho (d) Immune 2016-03-27 Completed [facility] 00:00:00 [facility] Rho (d) Immune 2016-03-27 Completed [facility] 00:00:00 [facility] Rho (d) Immune 2016-03-27 Completed [facility] 00:00:00 [facility] Rho (d) Immune 2016-03-27 Completed [facility] 00:00:00 [facility] Rho (d) Immune 2016-03-27 Completed [facility] 00:[facility]00 [facility] Rho (d) Immune 2016-03-27 Completed [facility] 00:[facility]00 [facility] Rho (d) Immune 2016-03-27 Completed [facility] 00:00:00 [facility] Rho (d) Immune 2016-03-27 Completed [facility] 00:00:00 [facility] Rho (d) Immune 2016-03-27 Completed [facility] 00:[facility]00 [facility] Vital Signs Vital Name Observation Time Observation Value Comments Source HEIGHT 2020-09-22 06:00:00 152.4 cm WEIGHT 2020-09-22 06:00:00 80.8 kg HEIGHT 2020-09-21 19:00:00 152.4 cm WEIGHT 2020-09-21 19:00:00 80.786 kg Systolic blood 2022-10-19 02:15:00 132 mm[Hg] [facility] Diastolic blood 2022-10-19 02:15:00 70 mm[Hg] Unive rsity of [facility] Heart rate 2022-10-19 02:15:00 84 /min [facility] acute hospital Oxygen saturation in 2022-10-19 02:15:00 98 /min [facility] Arterial blood by [facility] Pulse oximetry Branch Respiratory rate 2022-10-19 02:05:00 17 /min [facility] Body temperature 2022-10-19 00:20:00 36.61 Shira [facility] Body weight 2022-10-19 00:20:00 90.719 kg [facility] acute hospital BMI 2022-10-19 00:20:00 35.43 kg/m2 [facility] hospital Systolic blood 2022-10-16 14:08:00 131 mm[Hg] [facility] Diastolic blood 2022-10-16 14:08:00 68 mm[Hg] Unive rsity of [facility] Heart rate 2022-10-16 14:08:00 86 /min [facility] hospital Body temperature 2022-10-16 14:08:00 36.78 [facility] 2022-10-16 14:08:00 20 /min Univ [facility] Body height 2022-10-16 14:08:00 160 cm [facility]i ty [facility] Body weight 2022-10-16 14:08:00 90.992 kg [facility] BMI 2022-10-16 14:08:00 35.53 kg/m2 [facility] Systolic blood 2022-10-15 01:30:00 127 mm[Hg] Univer sity of pressure [facility] Diastolic blood 2022-10-15 01:30:00 79 mm[Hg] Unive rsity of pressure [facility] Heart rate 2022-10-15 01:30:00 72 /min [facility] Respiratory rate 2022-10-15 01:30:00 18 /min [facility] Oxygen saturation in 2022-10-15 01:30:00 100 /min University Arterial blood by [facility] Pulse oximetry Branch Body temperature 2022-10-14 23:09:00 37.06 Shira Univ [facility] Body height 2022-10-14 23:09:00 160 cm [facility] Body weight 2022-10-14 23:09:00 90.719 kg [facility] BMI 2022-10-14 23:09:00 35.43 kg/m2 [facility] Systolic blood 2022-10-07 20:38:00 121 mm[Hg] Univer sity of pressure [facility] Diastolic blood 2022-10-07 20:38:00 73 mm[Hg] Unive rsity of pressure [facility] Heart rate 2022-10-07 20:38:00 92 /min [facility] Body temperature 2022-10-07 20:38:00 36.22 Shira Univ ersity of [facility] Respiratory rate 2022-10-07 20:38:00 18 /min Univ ersity of [facility] Body height 2022-10-07 20:38:00 162.6 cm [facility] Body weight 2022-10-07 20:38:00 91.082 kg [facility] BMI 2022-10-07 20:38:00 34.47 kg/m2 Universi ty of [facility] Systolic blood 2022-09-18 15:18:00 110 mm[Hg] Univer sity of pressure [facility] Diastolic blood 2022-09-18 15:18:00 69 mm[Hg] Unive rsity of pressure [facility] Heart rate 2022-09-18 15:18:00 84 /min [facility] Body temperature 2022-09-18 15:18:00 36.61 Shira [facility] Respiratory rate 2022-09-18 15:18:00 20 /min Univ ersity of [facility] Body height 2022-09-18 15:18:00 162.6 cm [facility] Body weight 2022-09-18 15:18:00 89.994 kg [facility] BMI 2022-09-18 15:18:00 34.06 kg/m2 [facility] Systolic blood 2022-08-30 12:17:00 120 mm[Hg] [facility]iver [facility]ity of [facility] Diastolic blood 2022-08-30 12:17:00 75 mm[Hg] Unive rsity of [facility] Heart rate 2022-08-30 12:17:00 78 /min [facility] Body temperature 2022-08-30 12:17:00 37.39 Shira [facility] Respiratory rate 2022-08-30 12:17:00 16 /min Univ ersity of [facility] Body height 2022-08-30 12:17:00 162.6 cm [facility] Body weight 2022-08-30 12:17:00 89.812 kg [facility] BMI 2022-08-30 12:17:00 33.99 kg/m2 [facility] Oxygen saturation in 2022-08-30 12:17:00 99 /min University Arterial blood by [facility] Pulse oximetry Branch Systolic blood 2022-08-07 20:42:00 128 mm[Hg] Univer sity of pressure [facility] Diastolic blood 2022-08-07 20:42:00 67 mm[Hg] Unive rsity of pressure [facility] Heart rate 2022-08-07 20:42:00 79 /min [facility] Body temperature 2022-08-07 20:42:00 36.17 Shira Univ ersity of [facility] Respiratory rate 2022-08-07 20:42:00 18 /min [facility] Body height 2022-08-07 20:42:00 160 cm [facility] [place] Body weight 2022-08-07 20:42:00 90.674 kg Universi ty of [facility] BMI 2022-08-07 20:42:00 35.41 kg/m2 Universi ty of [facility] Systolic blood 2022-07-15 18:41:00 137 mm[Hg] [facility] Diastolic blood 2022-07-15 18:41:00 83 mm[Hg] [facility] Heart rate 2022-07-15 18:41:00 88 /min [facility] Body temperature 2022-07-15 18:41:00 37.11 Shira [facility] Respiratory rate 2022-07-15 18:41:00 16 /min Univ ers[facility] Body weight 2022-07-15 18:41:00 90.765 kg [facility] BMI 2022-07-15 18:41:00 35.45 kg/m2 [facility] Oxygen saturation in 2022-07-15 18:41:00 98 /min University of Arterial blood by [facility] Pulse oximetry Branch Systolic blood 2022-07-08 20:58:00 135 mm[Hg] [facility] Diastolic blood 2022-07-08 20:58:00 75 mm[Hg] [facility]ive rsity [facility] Heart rate 2022-07-08 20:58:00 87 /min [facility] Body temperature 2022-07-08 20:58:00 36.61 Shira [facility] Respiratory rate 2022-07-08 20:58:00 18 /min Univ ers[facility] Body height 2022-07-08 20:58:00 160 cm [facility] Body weight 2022-07-08 20:58:00 91.683 kg Universi ty of [facility] BMI 2022-07-08 20:58:00 35.80 kg/m2 [facility] Systolic blood 2022-06-17 19:29:00 114 mm[Hg] Univer sity of pressure [facility] Diastolic blood 2022-06-17 19:29:00 83 mm[Hg] Unive rsity of pressure [facility] Heart rate 2022-06-17 19:29:00 88 /min [facility] [place] Body temperature 2022-06-17 19:29:00 36.11 Shira Univ [facility] Respiratory rate 2022-06-17 19:29:00 18 /min Univ ersity of [facility] Body height 2022-06-17 19:29:00 160 cm [facility] Body weight 2022-06-17 19:29:00 92.307 kg [facility] BMI 2022-06-17 19:29:00 36.05 kg/m2 [facility] Systolic blood 2022-04-22 02:32:00 129 mm[Hg] Univer sity of pressure [facility] Diastolic blood 2022-04-22 02:32:00 91 mm[Hg] Unive rsity of pressure [facility] Heart rate 2022-04-22 02:32:00 70 /min [facility] Body temperature 2022-04-22 02:32:00 37 Shira [facility] Respiratory rate 2022-04-22 02:32:00 18 /min Univ ersity of [facility] Body height 2022-04-22 02:32:00 162.6 cm [facility] Body weight 2022-04-22 02:32:00 86.183 kg [facility] BMI 2022-04-22 02:32:00 32.61 kg/m2 Universi ty of [facility] Oxygen saturation in 2022-04-22 02:32:00 99 /min University Arterial blood by [facility] Pulse oximetry Branch Systolic blood 2022-03-18 20:14:00 145 mm[Hg] [facility]ity of [facility] [place] Diastolic blood 2022-03-18 20:14:00 76 mm[Hg] Unive rsity of pressure [facility] Heart rate 2022-03-18 20:14:00 84 /min [facility]i ty [facility] Respiratory rate 2022-03-18 20:14:00 18 /min Univ ersity of [facility] Oxygen saturation in 2022-03-18 20:14:00 99 /min University of Arterial blood by [facility] Pulse oximetry Branch Systolic blood 2022-03-04 17:21:00 115 mm[Hg] Univer sity of pressure [facility] Diastolic blood 2022-03-04 17:21:00 79 mm[Hg] Unive rsity of pressure [facility] Heart rate 2022-03-04 17:21:00 82 /min [facility] Respiratory rate 2022-03-04 17:21:00 17 /min Univ ersity of [facility] Body weight 2022-03-04 17:21:00 91.128 kg [facility] BMI 2022-03-04 17:21:00 34.48 kg/m2 [facility] Systolic blood 2022-02-16 23:00:00 130 mm[Hg] Univer sity of pressure [facility] Diastolic blood 2022-02-16 23:00:00 80 mm[Hg] Unive rsity of pressure [facility] Respiratory rate 2022-02-16 23:00:00 16 /min Univ ersity of [facility] Heart rate 2022-02-16 21:45:00 71 /min [facility]i [facility] Oxygen saturation in 2022-02-16 21:45:00 98 /min University of Arterial blood by [facility] Pulse oximetry Branch Body temperature 2022-02-16 18:25:13 37.22 Shira Univ [facility] Body weight 2022-02-16 17:54:00 92.08 kg [facility] BMI 2022-02-16 17:54:00 34.84 kg/m2 [facility] Systolic blood 2022-02-12 14:54:00 120 mm[Hg] Univer sity of pressure [facility] Diastolic blood 2022-02-12 14:54:00 79 mm[Hg] Unive rsity of pressure [facility] Heart rate 2022-02-12 14:54:00 81 /min [facility] Body temperature 2022-02-12 14:54:00 36.67 Shira [facility] Respiratory rate 2022-02-12 14:54:00 18 /min [facility] Oxygen saturation in 2022-02-12 14:54:00 98 /min [facility] of Arterial blood by [facility] Pulse oximetry Branch Body height 2022-02-10 22:10:00 162.6 cm [facility] [place] Body weight 2022-02-10 22:10:00 96.163 kg [facility] BMI 2022-02-10 22:10:00 36.39 kg/m2 [facility] Systolic blood 2022-02-06 20:04:00 120 mm[Hg] Univer sity of pressure [facility] Diastolic blood 2022-02-06 20:04:00 76 mm[Hg] [facility]ity of [facility] [place] Heart rate 2022-02-06 20:04:00 89 /min [facility] [place] Body temperature 2022-02-06 20:04:00 36.44 Shira [facility] Respiratory rate 2022-02-06 20:04:00 18 /min Univ ersity [facility] Body height 2022-02-06 20:04:00 162.6 cm [facility] Body weight 2022-02-06 20:04:00 96.344 kg [facility] BMI 2022-02-06 20:04:00 36.46 kg/m2 [facility] Systolic blood 2022-02-03 21:03:00 121 mm[Hg] Univer sity of [facility] Diastolic blood 2022-02-03 21:03:00 73 mm[Hg] Unive rsity of pressure [facility] Heart rate 2022-02-03 21:03:00 85 /min [facility] Body temperature 2022-02-03 21:03:00 36.44 Shira [facility] Respiratory rate 2022-02-03 21:03:00 17 /min Univ ersity [facility] Body height 2022-02-03 21:03:00 162.6 cm [facility] Body weight 2022-02-03 21:03:00 96.525 kg [facility] BMI 2022-02-03 21:03:00 36.53 kg/m2 [facility] Heart rate 2022-01-30 23:30:00 102 /min [facility] Oxygen saturation in 2022-01-30 23:30:00 99 /min [facility] of Arterial blood by [facility] Pulse oximetry Branch Systolic blood 2022-01-30 22:45:00 118 mm[Hg] Univer sity of pressure [facility] Diastolic blood 2022-01-30 22:45:00 69 mm[Hg] Unive rsity of pressure [facility] Respiratory rate 2022-01-30 22:10:00 38 /min Univ ersity of [facility] Body temperature 2022-01-30 21:43:00 37.06 Shira [facility] Body height 2022-01-30 21:43:00 162.6 cm [facility] Body weight 2022-01-30 21:43:00 95.709 kg [facility] BMI 2022-01-30 21:43:00 36.22 kg/m2 [facility] Systolic blood 2022-01-29 20:36:00 128 mm[Hg] Univer sity of pressure [facility] Diastolic blood 2022-01-29 20:36:00 76 mm[Hg] Unive rsity of pressure [facility] Heart rate 2022-01-29 20:36:00 78 /min [facility] Body temperature 2022-01-29 20:36:00 36.78 Shira [facility] Respiratory rate 2022-01-29 20:36:00 18 /min Univ ersity [facility] Body height 2022-01-29 20:36:00 162.6 cm [facility] Body weight 2022-01-29 20:36:00 96.117 kg [facility] BMI 2022-01-29 20:36:00 36.37 kg/m2 [facility] Systolic blood 2022-01-27 18:57:00 118 mm[Hg] Univer sity of pressure [facility] Diastolic blood 2022-01-27 18:57:00 72 mm[Hg] Unive rsity of [facility] Heart rate 2022-01-27 18:57:00 86 /min [facility] Body temperature 2022-01-27 18:57:00 36.61 Shira [facility] Respiratory rate 2022-01-27 18:57:00 20 /min Univ [facility] Body height 2022-01-27 18:57:00 162.6 cm [facility] Body weight 2022-01-27 18:57:00 96.798 kg [facility] BMI 2022-01-27 18:57:00 36.63 kg/m2 [facility] Systolic blood 2022 21:02:00 126 [...] 2022-01-21 16:22:00 95.845 kg [facility] BMI 2022-01-21 16:22:00 36.27 kg/m2 [facility] Systolic blood 2022-01-16 19:35:00 121 mm[Hg] Univer sity of pressure [facility] Diastolic blood 2022-01-16 19:35:00 79 mm[Hg] Unive rsity of [facility] Heart rate 2022-01-16 19:35:00 94 /min [facility] Body temperature 2022-01-16 19:35:00 36.83 Shira [facility] Respiratory rate 2022-01-16 19:35:00 20 /min Univ ersity [facility] Body height 2022-01-16 19:35:00 162.6 cm [facility] Body weight 2022-01-16 19:35:00 95.936 kg [facility] BMI 2022-01-16 19:35:00 36.30 kg/m2 [facility] Systolic blood 2022-01-13 16:56:00 126 mm[Hg] Univer sity of pressure [facility] Diastolic blood 2022-01-13 16:56:00 68 mm[Hg] Unive rsity of [facility] Heart rate 2022-01-13 16:56:00 77 /min [facility] Body temperature 2022-01-13 16:56:00 36.5 Shira [facility] Respiratory rate 2022-01-13 16:56:00 17 /min [facility] Body height 2022-01-13 16:56:00 162.6 cm [facility] Body weight 2022-01-13 16:56:00 96.163 kg [facility] BMI 2022-01-13 16:56:00 36.39 kg/m2 [facility] Systolic blood 2022-01-09 18:46:00 115 mm[Hg] Univer sity of pressure [facility] Diastolic blood 2022-01-09 18:46:00 79 mm[Hg] Unive rsity of [facility] Heart rate 2022-01-09 18:46:00 79 /min [facility] Body temperature 2022-01-09 18:46:00 36.67 Shira [facility] Respiratory rate 2022-01-09 18:46:00 18 /min [facility] Body height 2022-01-09 18:46:00 162.6 cm [facility] Body weight 2022-01-09 18:46:00 96.117 kg [facility] BMI 2022-01-09 18:46:00 36.37 kg/m2 [facility] Systolic blood 2022-01-06 19:15:00 132 mm[Hg] Univer sity of [facility] Diastolic blood 2022-01-06 19:15:00 74 mm[Hg] Unive rsity of [facility] Heart rate 2022-01-06 19:15:00 86 /min [facility] Body temperature 2022-01-06 19:15:00 36.78 Shira [facility] Respiratory rate 2022-01-06 19:15:00 18 /min [facility] Body height 2022-01-06 19:15:00 162.6 cm [facility] Body weight 2022-01-06 19:15:00 94.944 kg [facility] BMI 2022-01-06 19:15:00 35.93 kg/m2 [facility] Systolic blood 2022-01-02 18:24:00 111 [...] 2022-01-02 18:24:00 94.575 kg [facility] BMI 2022-01-02 18:24:00 35.79 kg/m2 [facility] Systolic blood 2021-12-30 20:46:00 137 mm[Hg] Univer sity of [facility] Diastolic blood 2021-12-30 20:46:00 77 mm[Hg] Unive rsity of [facility] Heart rate 2021-12-30 20:46:00 89 /min [facility] Body temperature 2021-12-30 20:46:00 36.22 Shira [facility] Respiratory rate 2021-12-30 20:46:00 18 /min [facility] Body height 2021-12-30 20:46:00 162.6 cm [facility] Body weight 2021-12-30 20:46:00 95.851 kg [facility] BMI 2021-12-30 20:46:00 36.27 kg/m2 [facility] Systolic blood 2021-12-17 19:45:00 127 mm[Hg] [facility] Diastolic blood 2021-12-17 19:45:00 84 mm[Hg] [facility] Heart rate 2021-12-17 19:45:00 107 /min [facility] Body temperature 2021-12-17 19:45:00 35.94 Shira [facility] Respiratory rate 2021-12-17 19:45:00 18 /min [facility] Body height 2021-12-17 19:45:00 162.6 cm [facility] Body weight 2021-12-17 19:45:00 94.065 kg [facility] BMI 2021-12-17 19:45:00 35.60 kg/m2 [facility] Heart rate 2021-12-01 21:00:00 90 /min [facility] Oxygen saturation in 2021-12-01 21:00:00 99 /min [facility] Arterial blood by [facility] Pulse oximetry Branch Systolic blood 2021-12-01 20:45:00 136 mm[Hg] [facility] Diastolic blood 2021-12-01 20:45:00 73 mm[Hg] [facility] Body temperature 2021-12-01 20:12:00 36.33 Shira [facility] Respiratory rate 2021-12-01 20:12:00 18 /min [facility] Body weight 2021-12-01 19:42:00 92.987 kg [facility] BMI 2021-12-01 19:42:00 35.19 kg/m2 [facility] Systolic blood 2021-11-30 16:47:00 133 mm[Hg] [facility] Diastolic blood 2021-11-30 16:47:00 73 mm[Hg] [facility] Heart rate 2021-11-30 16:47:00 96 /min [facility] Body temperature 2021-11-30 16:47:00 36.17 Shira [facility] Respiratory rate 2021-11-30 16:47:00 18 /min [facility] Body weight 2021-11-30 16:47:00 94.031 kg [facility] BMI 2021-11-30 16:47:00 35.58 kg/m2 [facility] Oxygen saturation in 2021-11-30 16:47:00 97 /min [facility]terial blood by [facility] Pulse oximetry Branch Systolic blood 2021-11-29 13:03:00 113 mm[Hg] [facility] Diastolic blood 2021-11-29 13:03:00 65 mm[Hg] [facility] Heart rate 2021-11-29 13:03:00 82 /min [facility] Body temperature 2021-11-29 13:03:00 36.89 Shira [facility] Respiratory rate 2021-11-29 13:03:00 20 /min [facility] Body height 2021-11-29 13:03:00 162.6 cm [facility] Body weight 2021-11-29 13:03:00 92.987 kg General acute hospital BMI 2021-11-29 13:03:00 35.19 kg/m2 General acute hospital Oxygen saturation in 2021-11-29 13:03:00 100 /min [facility] blood by [facility] Pulse oximetry Branch HEIGHT 2020-09-22 06:00:00 152.4 cm WEIGHT 2020-09-22 06:00:00 80.8 kg HEIGHT 2020-09-21 19:00:00 152.4 cm WEIGHT 2020-09-21 19:00:00 80.786 kg Procedures Procedure Date / Time Performing Clinician Source Performed XR CHEST 1 VW 2022-10-19 02:40:00 Alison Oliveira [facility] CONSENT/REFUSAL FOR 2022-10-19 00:12:09 Doctor Unassigned, No [facility] [place] [facility] POCT URINALYSIS 2022-10-16 00:00:00 Taya, [facility] EKG-12 LEAD 2022-10-15 01:26:23 Marichuy Smith [facility] BASIC METABOLIC PANEL 2022-10-15 00:28:00 Marichuy Smith [facility] [place] (NA, K, CL, CO2, GLUCOSE, Medica l Branch BUN, CREATININE, CA) CBC WITH DIFF 2022-10-15 00:28:00 [facility] CONSENT/REFUSAL FOR 2022-10-14 23:03:38 Doctor Unassigned, No [facility] [place] [facility] POCT URINALYSIS 2022-10-07 20:42:00 [facility] AUTHORIZATION FOR RELEASE 2022-10-07 05:01:00 Doctor Unassigned, No [facility] CONSENT/REFUSAL FOR 2022-08-30 12:11:49 Doctor Unassigned, No [facility] [place] [facility] POCT URINALYSIS 2022-08-07 20:46:00 [facility] FIRST TRIMESTER 2022-07-28 16:17:00 Taya, [facility] BASIC METABOLIC PANEL 2022-07-15 19:27:00 Dariela Jacob [facility] (NA, K, CL, CO2, GLUCOSE, Medica l Branch BUN, CREATININE, CA) CBC WITH DIFF 2022-07-15 19:27:00 Dariela Jacob [facility] URINALYSIS 2022-07-15 19:27:00 Dariela Jacob [facility] ASSIGNMENT OF BENEFITS 2022-07-15 19:07:00 Doctor Unassigned, No General acute hospital CONSENT/REFUSAL FOR 2022-07-15 18:26:58 Doctor Unassigned, No Un [facility] DIAGNOSIS AND TREATMENT [facility] POCT URINALYSIS 2022-07-08 20:58:00 Taya, [facility] POCT TEST 2022-06-17 19:17:00 Alma Solis Uni [facility] POCT URINALYSIS W/O 2022-06-17 19:17:00 Alma Solis Uni [facility] SPECIFIC GRAVITY [facility] PATIENT FINANCIAL 2022-06-17 19:02:51 Doctor Unassigned, No [facility] POLICY [facility] POCT TEST 2022-04-22 05:04:00 Kiarra Arizmendi [facility] COMP. METABOLIC PANEL 2022-04-22 04:35:00 Kiarra [facility] ([id number] CBC WITH DIFF 2022-04-22 04:35:00 Kiarra Arizmendi [facility] URINALYSIS 2022-04-22 04:35:00 Kiarra Arizmendi [facility] NOTICE OF PRIVACY 2022-04-22 02:08:27 Doctor Unassigned, No [facility] CONSENT/REFUSAL FOR 2022-04-22 02:07:10 [facility] PREPARE PACKED RBC 2022-02-16 23:41:05 Raven Goldsmith [facility] CT CHEST PULMONARY 2022-02-16 21:13:19 Raven Goldsmith [facility] ANGIOGRAM [facility] CT HEAD WO CONTRAST 2022-02-16 21:12:52 Raven Goldsmith [facility] US PELVIS COMPLETE WITH 2022-02-16 19:47:38 Raven Goldsmith [facility] TRANSVAGINAL [facility] HB ABO GROUPING 2022-02-16 18:30:00 Raven Goldsmith [facility] MAGNESIUM 2022-02-16 18:29:00 Raven Goldsmith [facility] TROPONIN I 2022-02-16 18:29:00 Raven Goldsmith [facility] COMP. METABOLIC PANEL 2022-02-16 18:29:00 Raven Goldsmith [facility] ([id number]) [facility] CBC WITH DIFF 2022-02-16 18:29:00 Raven Goldsmith [facility] PROTHROMBIN TIME / INR 2022-02-16 18:29:00 [facility] ACTIVATED PARTIAL 2022-02-16 18:29:00 Raven Goldsmith [facility] THRMPLAS ISABELL [facility] N-TERMINAL PRO-BNP 2022-02-16 18:29:00 Raven Goldsmith [facility] URINALYSIS 2022-02-16 18:14:00 Agus Raven [facility] URINE DRUG (IMMUNOASSAY) 2022-02-16 18:14:00 Raven Goldsmith [facility] DRUG [facility] SCREEN W/O REFLEX CONSENT/REFUSAL FOR 2022-02-16 17:48:27 Doctor Unassigned, No Un [facility] DIAGNOSIS AND TREATMENT Name Medical Branch CBC WITH DIFF 2022-02-12 10:03:00 Hermila [facility] HB -MATERNAL 2022-02-12 10:00:00 Hermila [facility] HEMORRHAGE SCREEN [facility] VENOUS CORD GAS 2022-02-11 16:58:00 Raya Ramirez [facility] CENTRAL NEURAXIAL BLOCK 2022-02-11 06:58:26 Nory Jiménez [facility] CBC WITH DIFF 2022-02-10 23:27:00 Ramirez, [facility] HEPATITIS B SURFACE 2022-02-10 23:27:00 [facility] HIV 1/2 AG-AB WITH REFLEX 2022-02-10 23:27:00 [facility] - SYPHILIS 2022-02-10 23:27:00 James [facility] IGG/IGM [facility] ANTI-D R/O PANEL 2022-02-10 23:25:00 James [facility] HB ABO GROUPING 2022-02-10 23:25:00 Ramirez, [facility] o [facility] RHO (D) IMMUNE GLOBULIN 2022-02-10 23:25:00 Magaly Cleaning [facility] AUTHORIZATION FOR RELEASE 2022-02-07 06:01:00 Doctor Unassigned, No [facility] NON-STRESS TEST 2022-02-06 21:51:27 [facility] POCT URINALYSIS 2022-02-06 00:00:00 Alma Solis [facility] POCT URINALYSIS 2022-02-03 22:20:00 Alma Solis [facility] NON-STRESS TEST 2022-02-03 21:35:28 TerrellAlma looney U [facility] URINE DRUG (IMMUNOASSAY) 2022-01-30 22:11:[address] [facility] SCREEN URINALYSIS 2022-01-30 22:11:00 Areli Patel [facility] HB ABO GROUPING 2022-01-30 21:57:00 Areli Patel [facility] LIPASE 2022-01-30 21:52:00 Areli Patel [facility] MAGNESIUM 2022-01-30 21:52:00 Areli Patel [facility] COMP. METABOLIC PANEL 2022-01-30 21:52:00 Areli Patel [facility] ([id number]) [facility] CBC WITH DIFF 2022-01-30 21:52:00 Areli Patel [facility] PROTHROMBIN TIME / INR 2022-01-30 21:52:00 [facility] COVID-19 (ID NOW RAPID 2022-01-30 21:52:00 Areli Patel [facility] HOSPITAL ADMISSION 2022-01-30 06:01:00 Doctor Unassigned, No [facility] NON-STRESS TEST 2022-01-30 02:30:41 Rad[facility] Nobles [facility] CBC WITH DIFF 2022-01-29 21:15:00 Radha Nobles [facility] GC & CHLAMYDIA AMPLIFIED 2022-01-29 21:15:00 Radha Nobles [facility] GROUP B STREPTOCOCCUS BY 2022-01-29 21:15:00 Radha Nobles [facility] POCT URINALYSIS 2022-01-29 00:00:00 Akinsipe, Alma C [facility] NON-STRESS TEST 2022-01-28 20:12:49 Terrellsipe Alma C U [facility] POCT URINALYSIS 2022-01-27 00:00:00 Akinsipe Alma C [facility] NON-STRESS TEST 2022 21:50:59 Akinsipe Alma C U [facility] POCT URINALYSIS 2022 00:00:00 Akinsipe, Alma C [facility] NON-STRESS TEST 2022-01-21 18:09:21 Radha Nobles [facility] POCT URINALYSIS 2022-01-21 00:00:00 Akinsipe, Alma C [facility] NON-STRESS TEST 2022-01-16 20:01:49 Amy Sharma [facility] NON-STRESS TEST 2022-01-13 17:45:33 Radha [facility]les [facility] PO[facility]IS 2022-01-13 00:00:00 Alma Solis [facility] POCT URINALYSIS 2022-01-09 18:51:00 Alma Solis [facility] NON-STRESS TEST 2022-01-07 14:56:27 Al[facility] PO[facility]IS 2022-01-06 19:16:00 Alma Solis [facility] PATIENT CORRESPONDENCE 2022-01-03 05:01:00 Doctor Unassigned, No [facility] (LETTERS, [facility] DOCUMENTATION) NON-STRESS TEST 2022-01-02 20:04:00 [facility] POCT URINALYSIS 2022-01-02 00:00:00 Alma Solis [facility] POCT URINALYSIS 2021-12-30 20:47:00 Alma Solis [facility] POCT URINALYSIS 2021-12-17 19:46:00 Alma Solis [facility] TDAP VACCINE, >11 YRS, IM 2021-12-17 19:45:33 Alma Solis [facility] URINALYSIS 2021-12-01 21:41:00 Sheryl Arnold [facility] CONSENT/REFUSAL FOR 2021-12-01 19:40:14 Doctor Unassigned, No [facility] CONSENT/REFUSAL FOR 2021-11-30 16:38:10 Doctor Unassigned, No [facility] POCT URINALYSIS 2021-11-29 00:00:00 Alma Solis [facility] AUTHORIZATION FOR RELEASE 2021-07-19 05:01:00 Doctor Unassigned, No [facility] Plan of Care Planned Activity Planned Date Details Comments Source Future Scheduled 2028-02-16 DTAP/TDAP/TD VACCINES ([address] [facility] 00:00:00 - Td or Tdap) [code = Medica l Center DTAP/TDAP/TD VACCINES (3 - Td or Tdap)] Future Scheduled 2028-02-16 DTAP/TDAP/TD VACCINES ([address] [facility] 00:00:00 - Td or Tdap) [code = Medica l Center DTAP/TDAP/TD VACCINES (3 - Td or Tdap)] Future Scheduled 2028-02-16 DTAP/TDAP/TD VACCINES ([address] [facility] 00:00:00 - Td or Tdap) [code = Medica l Center DTAP/TDAP/TD VACCINES (3 - Td or Tdap)] Future Scheduled 2028-02-16 DTAP/TDAP/TD VACCINES ([address] [facility] 00:00:00 - Td or Tdap) [code = Medica l Center DTAP/TDAP/TD VACCINES (3 - Td or Tdap)] Future Scheduled 2028-02-16 DTAP/TDAP/TD VACCINES ([address] [facility] 00:00:00 - Td or Tdap) [code = Medica l Center DTAP/TDAP/TD VACCINES (3 - Td or Tdap)] Future Scheduled 2028-02-16 DTAP/TDAP/TD VACCINES ([address] [facility] 00:00:00 - Td or Tdap) [code = Medica l Center DTAP/TDAP/TD VACCINES (3 - Td or Tdap)] Future Scheduled 2028-02-16 DTAP/TDAP/TD VACCINES ([address] [facility] 00:00:00 - Td or Tdap) [code = Medica l Center DTAP/TDAP/TD VACCINES (3 - Td or Tdap)] Future Scheduled 2028-02-16 DTAP/TDAP/TD VACCINES ([address] [facility] 00:00:00 - Td or Tdap) [code = Medica l Center DTAP/TDAP/TD VACCINES (3 - Td or Tdap)] Future Scheduled 2028-02-16 DTAP/TDAP/TD VACCINES ([address] [facility] 00:00:00 - Td or Tdap) [code = Medica l Center DTAP/TDAP/TD VACCINES (3 - Td or Tdap)] Future Scheduled 2022-11-07 Influenza Vaccine (Season [facility] 00:00:00 Ended) [code = Influenza Med ical Center Vaccine (Season Ended)] Future Scheduled 2022-11-07 Influenza Vaccine (#1) [facility] [code = Influenza Vaccine Me dical Center (#1)] Future Scheduled 2022-11-07 INFLUENZA VACCINE (Season [facility] 00:00:00 Ended) [code = INFLUENZA Med ical Center VACCINE (Season Ended)] Future Scheduled 2022-11-07 INFLUENZA VACCINE (Season [facility] 00:00:00 Ended) [code = INFLUENZA Med ical Center VACCINE (Season Ended)] Future Scheduled 2022-11-07 Influenza Vaccine (#1) [facility] 00:00:00 [code = Influenza Vaccine Me dical Center (#1)] Future Scheduled 2022-10-11 Screening for [facility] 23:27:21 neoplasm of cervix Hospital (procedure) [code = 698137579] Future Scheduled 2022-10-11 INFLUENZA VACCINE [code = [facility] 23:27:21 INFLUENZA VACCINE] Hospital Future Scheduled 2022-10-11 COVID-19 VACCINE (#1) [facility] 23:27:21 [code = COVID-19 VACCINE Hos pital (#1)] Future Scheduled 2022-08-24 COVID-19 VACCINE (#1) [facility] 04:45:42 [code = COVID-19 VACCINE Hos pital (#1)] Future Scheduled 2022-08-24 Screening for malignant [facility] 04:45:42 neoplasm of cervix Hospital (procedure) [code = 842807364] Future Scheduled 2022-08-24 INFLUENZA VACCINE [code = [facility] 04:45:42 INFLUENZA VACCINE] Hospital Future Scheduled 2022-06-08 INFLUENZA VACCINE [code = [facility] 13:29:23 INFLUENZA VACCINE] Hospital Future Scheduled 2022-06-08 COVID-19 VACCINE (#1) [facility] 13:29:23 [code = COVID-19 VACCINE Hos pital (#1)] Future Scheduled 2022-06-08 Screening for malignant [facility] 13:29:23 neoplasm of cervix Hospital (procedure) [code = 130517089] Future Scheduled 2022-06-08 INFLUENZA VACCINE [code = [facility] 13:29:23 INFLUENZA VACCINE] Hospital Future Scheduled 2022-06-08 COVID-19 VACCINE (#1) [facility] 13:29:23 [code = COVID-19 VACCINE Hos pital (#1)] Future Scheduled 2022-06-08 Screening for malignant [facility] 13:29:23 neoplasm of cervix Hospital (procedure) [code = 244838881] Future Scheduled 2022-06-08 INFLUENZA VACCINE [code = [facility] 13:29:23 INFLUENZA VACCINE] Hospital Future Scheduled 2022-06-08 COVID-19 VACCINE (#1) [facility] 13:29:23 [code = COVID-19 VACCINE Hos pital (#1)] Future Scheduled 2022-06-08 Screening for malignant [facility] 13:29:23 neoplasm of cervix Hospital (procedure) [code = 212613609] Future Scheduled 2022-03-[address] [facility] 00:00:00 (12+) [code = DEPRESSION Med ical Center SCREENING (12+)] Future Scheduled 2022-03-[address] [facility] 00:00:00 (12+) [code = DEPRESSION Med ical Center SCREENING (12+)] Future Scheduled 2022-03-[address] [facility] 00:00:00 (12+) [code = DEPRESSION Med ical Center SCREENING (12+)] Future Scheduled 2022-03-[address] [facility] 00:00:00 (12+) [code = DEPRESSION Med ical Center SCREENING (12+)] Future Scheduled 2022-03-[address] [facility] 00:00:00 (12+) [code = DEPRESSION Med ical Center SCREENING (12+)] Future Scheduled 2022-03-[address] [facility] 00:00:00 (12+) [code = DEPRESSION Med ical Center SCREENING (12+)] Future Scheduled 2022-03-02 COVID-19 VACCINE (#1) [facility] 16:47:47 [code = COVID-19 VACCINE Hos pital (#1)] Future Scheduled 2022-03-02 Screening for malignant [facility] 16:47:47 neoplasm of cervix Hospital (procedure) [code = 462312204] Future Scheduled 2022-03-02 INFLUENZA VACCINE [code = [facility] 16:47:47 INFLUENZA VACCINE] Hospital Future Scheduled 2022-01-12 HEPATITIS B VACCINES (1 [facility] 19:54:31 of 3 - 3-dose series) Hospit al [code = HEPATITIS B VACCINES (1 of 3 - 3-dose series)] Future Scheduled 2022-01-12 COVID-19 VACCINE (#1) [facility] 19:54:31 [code = COVID-19 VACCINE Hos pital (#1)] Future Scheduled 2022-01-12 Screening for Chlamydia [facility] 19:54:31 trachomatis (procedure) Hosp ital [code = 803637289] Future Scheduled 2022-01-12 Hepatitis C screening [facility] 19:54:31 (procedure) [code = Hospital 426343359] Future Scheduled 2022-01-12 Screening for malignant [facility] 19:54:31 neoplasm of cervix Hospital (procedure) [code = 143663309] Future Scheduled 2022-01-12 INFLUENZA VACCINE [code = [facility] 19:54:31 INFLUENZA VACCINE] Hospital Future Scheduled 2021-11-09 COVID-19 VACCINE (#1) [facility] 06:02:25 [code = COVID-19 VACCINE Hos pital (#1)] Future Scheduled 2021-11-09 Screening for Chlamydia [facility] 06:02:25 trachomatis (procedure) Hosp ital [code = 976633008] Future Scheduled 2021-11-09 Hepatitis C screening [facility] 06:02:25 (procedure) [code = Hospital 629472341] Future Scheduled 2021-11-09 Screening for malignant [facility] 06:02:25 neoplasm of cervix Hospital (procedure) [code = 328540124] Future Scheduled 2021-11-09 INFLUENZA VACCINE [code = [facility] 06:02:25 INFLUENZA VACCINE] Hospital Future Scheduled 2021-11-09 HEPATITIS B VACCINES (1 [facility] 06:02:25 of 3 - 3-dose series) Hospit al [code = HEPATITIS B VACCINES (1 of 3 - 3-dose series)] Future Scheduled 2021-11-09 COVID-19 VACCINE (#1) [facility] 06:02:25 [code = COVID-19 VACCINE Hos pital (#1)] Future Scheduled 2021-11-09 Screening for Chlamydia [facility] 06:02:25 trachomatis (procedure) Hosp ital [code = 499563420] Future Scheduled 2021-11-09 Hepatitis C screening [facility] 06:02:25 (procedure) [code = Hospital 016666214] Future Scheduled 2021-11-09 Screening for malignant [facility] 06:02:25 neoplasm of cervix Hospital (procedure) [code = 455844886] Future Scheduled 2021-11-09 INFLUENZA VACCINE [code = [facility] 06:02:25 INFLUENZA VACCINE] Hospital Future Scheduled 2021-11-09 HEPATITIS B VACCINES (1 [facility] 06:02:25 of 3 - 3-dose series) Hospit al [code = HEPATITIS B VACCINES (1 of 3 - 3-dose series)] Future Scheduled 2021-11-07 INFLUENZA VACCINE (#1) [facility]00 [code = INFLUENZA VACCINE Me dical Center (#1)] Future Scheduled 2021-11-07 INFLUENZA VACCINE (#1) [facility] 00:00:00 [code = INFLUENZA VACCINE Me dical Center (#1)] Future Scheduled 2021-11-07 INFLUENZA VACCINE (#1) [facility] 00:00:00 [code = INFLUENZA VACCINE Me dical Center (#1)] Future Scheduled 2021-11-07 INFLUENZA VACCINE (#1) [facility] 00:00:00 [code = INFLUENZA VACCINE Me dical Center (#1)] Future Scheduled 2021-09-[address] [facility] 00:00:00 Counseling and Screening Med ical Center (12+) [code = Tobacco Cessation Counseling and Screening (12+)] Future Scheduled 2021-09-[address] [facility] 00:00:00 Counseling and Screening Med ical Center (12+) [code = Tobacco Cessation Counseling and Screening (12+)] Future Scheduled 2021-09-[address] [facility] 00:00:00 Counseling and Screening Med ical Center (12+) [code = Tobacco Cessation Counseling and Screening (12+)] Future Scheduled 2021-09-[address] [facility] 00:00:00 Counseling and Screening Med ical Center (12+) [code = Tobacco Cessation Counseling and Screening (12+)] Future Scheduled 2021-09-[address] [facility] 00:00:00 Counseling and Screening Med ical Center (12+) [code = Tobacco Cessation Counseling and Screening (12+)] Future Scheduled 2021-09-[address] [facility] 00:00:00 Counseling and Screening Med ical Center (12+) [code = Tobacco Cessation Counseling and Screening (12+)] Future Scheduled 2021-03-[address] [facility] 00:00:00 (12+) [code = DEPRESSION Med ical Center SCREENING (12+)] Future Scheduled 2021-03-[address] [facility] 00:00:00 (12+) [code = DEPRESSION Med ical Center SCREENING (12+)] Future Scheduled 2021-03-[address] [facility] 00:00:00 (12+) [code = DEPRESSION Med ical Center SCREENING (12+)] Future Scheduled 2018 Screening for malignant [facility] 00:00:00 neoplasm of cervix Medical C enter (procedure) [code = 219190477] Future Scheduled 2018 Screening for malignant [facility] 00:00:00 neoplasm of cervix Medical C enter (procedure) [code = 196542411] Future Scheduled 2018 Screening for malignant [facility] 00:00:00 neoplasm of cervix Medical C enter (procedure) [code = 441612347] Future Scheduled 2018 Screening for malignant [facility] 00:00:00 neoplasm of cervix Medical C enter (procedure) [code = 561279206] Future Scheduled 2018 Screening for malignant [facility] 00:00:00 neoplasm of cervix Medical C enter (procedure) [code = 200935768] Future Scheduled 2018 Screening for malignant [facility] 00:00:00 neoplasm of cervix Medical C enter (procedure) [code = 617115521] Future Scheduled 2018 Screening for malignant [facility] 00:00:00 neoplasm of cervix Medical C enter (procedure) [code = 414829803] Future Scheduled 2018 Screening for malignant [facility] 00:00:00 neoplasm of cervix Medical C enter (procedure) [code = 185975702] Future Scheduled 2018 Screening for malignant [facility] 00:00:00 neoplasm of cervix Medical C enter (procedure) [code = 649875470] Future Scheduled 2017 Lipid panel (procedure) [facility] 00:00:00 [code = 70450825] Medical Ce nter Future Scheduled 2017 Lipid panel (procedure) [facility] 00:00:00 [code = 00216280] Medical Ce nter Future Scheduled 2017 Lipid panel (procedure) [facility] 00:00:00 [code = 60848197] Medical Ce nter Future Scheduled 2017 Lipid panel (procedure) [facility] 00:00:00 [code = 64590616] Medical Ce nter Future Scheduled 2017 Lipid panel (procedure) [facility] 00:00:00 [code = 92467916] Medical Ce nter Future Scheduled 2017 Lipid panel (procedure) [facility] 00:00:00 [code = 11257700] Medical Ce nter Future Scheduled 2017 Lipid panel (procedure) [facility] 00:00:00 [code = 88212491] Medical Ce nter Future Scheduled 2017 Lipid panel (procedure) [facility] 00:00:00 [code = 74507100] Medical Ce nter Future Scheduled 2017 Lipid panel (procedure) [facility] 00:00:00 [code = 65300776] Medical Ce nter Future Scheduled 2015 HEPATITIS C SCREENING [facility] [...] [facility] S[facility]] Future Scheduled 2012-01-[address] Human [address] [facility]00 virus screening Medical Cent er (procedure) [code = 509274654] Future Scheduled 1997 COVID-19 VACCINE (#1) [facility] 00:00[facility]00 [code = COVID-19 VACCINE Med ical Center (#1)] Future Scheduled 1997 COVID-19 VACCINE (#1) [facility] 00:00:00 [code = COVID-19 VACCINE Med ical Center (#1)] Future Scheduled 1997 COVID-19 VACCINE (#1) [facility] 00:00[facility]00 [code = COVID-19 VACCINE Med ical Center (#1)] Future Scheduled 1997 COVID-19 VACCINE (#1) [facility] 00:00[facility]00 [code = COVID-19 VACCINE [facility] ical Center (#1)] Future Scheduled 1997 COVID-19 VACCINE (#1) [facility] 00:00:00 [code = COVID-19 VACCINE Med ical Center (#1)] Future Scheduled 1997 COVID-19 VACCINE (#1) [facility] 00:00[facility]00 [code = COVID-19 VACCINE Med ical Center (#1)] Future Scheduled 1997 COVID-19 VACCINE (#1) [facility] 00:00[facility]00 [code = COVID-19 VACCINE [facility] ical Center (#1)] Future Scheduled 1997 COVID-19 VACCINE (#1) [facility] 00:00:00 [code = COVID-19 VACCINE Med ical Center (#1)] Future Scheduled 1997 COVID-19 VACCINE (#1) [facility] 00:00:00 [code = COVID-19 VACCINE [facility] (#1)] Future Scheduled CHLAMYDIA SCREENING [code Taoism Test = CHLAMYDIA SCREENING] Hospi umberto Future Scheduled COVID-19 VACCINE (1) Met [facility]ist Test [code = COVID-19 VACCINE Hos pital (1)] Future Scheduled Hepatitis C screening Me [facility]ist Test (procedure) [code = Hospital 342320578] Future Scheduled Screening for malignant Taoism Test neoplasm of cervix Hospital (procedure) [code = 113872192] Future Scheduled INFLUENZA VACCINE [code = Taoism Test INFLUENZA VACCINE] Hospital Encounters Start End Encounter Admission Attending Care Care Encounter Source Date/Time Date/Time Type Type Clinicians Facility Department ID 2022-10-18 Outpatient P [facility] MARGOT [id number] Univers 22:20:09 [facility] 2021-12-01 Outpatient P [facility] MARGOT [id number] Univers 18:22:19 ity of [facility] 2021-01-07 Emergency [facility] [id number] Univers 07:14:20 ity of [facility] 2021-01-07 Emergency [facility] [id number] Univers 06:42:50 ity of [facility] 2021-01-07 Emergency [facility] [id number] Univers 06:25:23 ity of [facility] 2021-01-07 Emergency [facility] [id number] Univers 03:52:48 ity of [facility] 2021-01-07 Emergency [facility] [id number] Univers 03:25:06 ity of [facility] 2021-01-06 Emergency [facility] [id number] Univers 03:53:51 ity of [facility] 2020-09-21 Inpatient ER TESHA, SLEAr[facility] [id number] [facility] 19:23:00 JOANNE 2022-11-20 2022-11-20 Outpatient P [facility] [id number] Univers 13:30:00 13:30:00 ity of [facility] 2022-10-23 2022-10-23 Outpatient P ALICIA [facility] [id number] Univers 13:00:00 13:00:00 RIZO cassius [facility] 2022-10-18 2022-10-18 Outpatient P BANDAR SUAREZ [facility] MARGOT [id number] Univers 19:28:00 22:19:00 BANDAR SUAREZ cassius [facility] 2022-10-18 2022-10-18 Hospital COLT Suarez 1.2.840.114 [id number] Univers 19:28:00 22:19:00 Encounter Bandar CAT 350.1.13.10 ity of [facility] 4.2.7.2.[id number] [facility] [address] [place] 2022-10-16 2022-10-16 Emergency EM Reina, [facility] [id number] [facility] 17:44:00 22:14:00 Martin [facility] 2022-10-16 2022-10-16 Outpatient [facility] [id number] Univers 09:15:00 09:29:49 ALMA hammonds o f [facility] 2022-10-16 2022-10-16 [facility]ine [facility], [facility] 1.2.602.202 [id number] Univers 09:15:00 09:29:49 Alma Estevez ENVIRONMENTAL SYSTEMS COORDINATOR 350.1.13.10 ity of Visit [facility] 4.2.7.2.686 Dwayne as MATERNAL [id number] Med ical & CHILD [address] [place] [address] 2022-10-14 2022-10-14 Emergency [facility], [facility] ERT [id number] Univers 18:12:00 20:39:00 MARICHUY it y [facility] 2022-10-14 2022-10-14 Emergency [place], [facility] 1.2.377.122 [id number] Univers 18:12:00 20:39:00 [facility] 350.1.13.10 ity [facility] 4.2.7.2.686 [id number] [address] [place] 2022-10-09 2022-10-09 Outpatient R [facility] [id number] Univers 09:45:00 09:45:00 ity of [facility] 2022-10-07 2022-10-07 Outpatient R AKINSIPE, [facility] [id number] Univers 15:30:00 16:07:49 ALMA ity o f [facility] 2022-10-07 2022-10-07 [facility] 1.2.355.659 [id number] Univers 15:30:00 15:45:00 Alma Estevez ENVIRONMENTAL SYSTEMS COORDINATOR 350.1.13.10 ity of Visit [facility] 4.2.7.2.686 Dwayne as MATERNAL [id number] [facility] & CHILD [address] [place] [address] 2022-10-07 2022-10-07 Orders Doctor COLT 1.2.840.114 [id number] Univers 00:00:00 00:00:00 Only Unassigned, STEPHANIA 350.1.13.10 ity of [place] [facility] 4.2.7.2.686 Dwayne as [id number] [address] 2022-10-07 2022-10-07 Letter [facility] 1.2.730.125 [id number] Univers 00:00:00 00:00:00 (Out) Alma Estevez ENVIRONMENTAL SYSTEMS COORDINATOR 350.1.13.10 ity of [facility] 4.2.7.2.686 Dwayne as MATERNAL [id number] [address] 2022-09-30 2022-09-30 Telephone [facility] 1.2.814.382 [id number] Univers 00:00:00 00:00:00 Kevin Hand ENVIRONMENTAL SYSTEMS COORDINATOR 350.1.13.10 i ty of [facility] 4.2.7.2.686 Dwayne as MATERNAL [id number] [facility] & CHILD [address] [place] [address] 2022-09-18 2022-09-18 Outpatient R FRANCISCO [facility] [id number] Univers 10:00:00 11:13:38 KEVIN hammonds of [facility] 2022-09-18 2022-09-18 Routine Risk, Cky-Imowf-Kf/High [facility] 1. 2.840.114 [id number] Univers 10:00:00 11:13:38 Kevin Singh ENVIRONMENTAL SYSTEMS COORDINATOR 350.1.13.10 ity of Visit [facility] 4.2.7.2.686 Dwayne as MATERNAL [id number] [facility] & CHILD [address] [place] [address] 2022-09-18 2022-09-18 Mihai Singh [facility] 1.2.840.114 [id number] Univers 00:00:00 00:00:00 (Out) Kevin Hand ENVIRONMENTAL SYSTEMS COORDINATOR 350.1.13.10 i ty of [facility] 4.2.7.2.686 Dwayne as MATERNAL [id number] [facility] & CHILD [address] [place] [address] 2022-09-11 2022-09-11 Outpatient R [facility] [id number] Univers 10:00:00 10:00:00 ity [facility] 2022-08-30 2022-08-30 Emergency X NIDIA [facility] ERT [id number] Univers 07:20:00 08:04:00 [facility]ELA [facility] 2022-08-30 2022-08-30 Emergency [facility] 1.2.596.145 [id number] Univers 07:20:00 08:04:00 [facility] 350.1.13.10 i ty of [place] [address].2.7.2.686 [place] [facility] [id number] [address] 2022-08-22 2022-08-22 Telephone [facility]ure[facility]ADALU[facility] 1.2.840.114 [id number] Univers 00:00:00 00:00:00 Alma Herb ENVIRONMENTAL SYSTEMS COORDINATOR 350.1.13.10 ity of [facility] 4.2.7.2.686 Dwayne as MATERNAL [id number] [facility] & CHILD [address] [place] [address] 2022-08-15 2022-08-15 Abstract [facility] 1.2.840.114 [id number] Univers 00:00:00 00:00:00 Alma C ENVIRONMENTAL SYSTEMS COORDINATOR 350.1.13.10 ity of [facility] 4.2.7.2.686 Dwayne as MATERNAL [id number] [facility] & CHILD [address] [place] [address] 2022-08-14 2022-08-14 Outpatient P ZEN CORREA [facility] [id number] Univers 10:45:00 12:01:26 ZEN CORREA ity of [facility] 2022-08-14 2022-08-14 Ocean [facility] Lab, [facility] 1.2.840. 114 [id number] Univers 11:30:00 11:47:20 Visit Akosua Edouard ENVIRONMENTAL SYSTEMS COORDINATOR 350.1.13.10 ity of REGIONAL 4.2.7.2.686 Dwayne as MATERNAL [id number] [facility] & CHILD [address] [place] [address] 2022-08-14 2022-08-14 Ocean Biologist 1, Suzie-[facility] Room [facility] 1.2. 840.114 [id number] Univers 10:45:00 11:30:00 Visit Zen Correa ENVIRONMENTAL SYSTEMS COORDINATOR 350.1.13.10 ity of REGIONAL 4.2.7.2.686 Dwayne as MATERNAL [id number] [facility] & CHILD [address] [place] [address] 2022-08-07 2022-08-07 Outpatient [facility] [id number] Univers 16:00:00 16:01:08 ALMA hammonds o f [facility] 2022-08-07 2022-08-07 Routine [facility] 1.2.394.113 [id number] Univers 16:00:00 16:01:08 Alma Estevez ENVIRONMENTAL SYSTEMS COORDINATOR 350.1.13.10 ity of Visit REGIONAL 4.2.7.2.686 Dwayne as MATERNAL [id number] [facility] & CHILD [address] [place] [address] 2022-07-29 2022-07-29 Abstract [facility] 1.2.840.114 [id number] Univers 00:00:00 00:00:00 Mallory ENVIRONMENTAL SYSTEMS COORDINATOR 350.1.13.10 it y of REGIONAL 4.2.7.2.686 Dwayne as MATERNAL [id number] [facility] & CHILD [address] [place] [address] 2022-07-29 2022-07-29 Abstract [facility] 1.2.840.114 [id number] Univers 00:00:00 00:00:00 Mlalory ENVIRONMENTAL SYSTEMS COORDINATOR 350.1.13.10 it y of REGIONAL 4.2.7.2.686 Dwayne as MATERNAL [id number] [facility] & CHILD [address] [facility] 2022-07-28 2022-07-28 Outpatient R KATEÓSCAR SZYMANSKIEETA [facility] [id number] Univers 12:00:00 12:00:00 CHIQUIS KATE [facility] 2022-07-28 2022-07-28 Ocean Biologist 1, [place] Room [facility] 1.2. 840.114 [id number] Univers 11:15:00 11:19:29 Visit Chiquis Kate ENVIRONMENTAL SYSTEMS COORDINATOR 350.1.13.10 ity of [place] [address].7.2.686 Dwayne as MATERNAL [id number] [facility] & CHILD [address] [place] [address] 2022-07-15 2022-07-15 Emergency X [facility] E[facility] [id number] Univers 13:43:00 16:41:00 [facility] 2022-07-15 2022-07-15 Emergency [facility] 1.2.440.665 [id number] Univers 13:43:00 16:41:00 Dariela Estevez ELMO 350.1.13.10 i ty of [address]686 [facility] [id number] [address] 2022-07-15 2022-07-15 Telephone [facility] 1.2.840.114 1 [id number] Univers 00:00:00 00:00:00 Radha Kel ENVIRONMENTAL SYSTEMS COORDINATOR 350.1.13.10 i ty of [address]686 Dwayne as MATERNAL [id number] [facility] & CHILD [address] [place] [address] 2022-07-08 2022-07-08 Outpatient R GIULIANO [facility] [id number] Univers 15:30:00 16:17:39 RADHA [facility]United [facility] 2022-07-08 2022-07-08 Routine [facility]AL[facility] 1.2.840.114 [id number] Univers 15:30:00 16:17:39 Radha A ENVIRONMENTAL SYSTEMS COORDINATOR 350.1.13.10 ity of Visit [place] [address].2.7.2.686 Dwayne as MATERNAL [id number] [facility] & CHILD [address] [place] [address] 2022-07-08 2022-07-08 Outpatient [facility] [id number] Univers 15:30:00 15:30:00 [facility] 2022-07-08 2022-07-08 Letter [facility] 1.2.840.114 [id number] Univers 00:00:00 00:00:00 (Out) Radha Begum ENVIRONMENTAL SYSTEMS COORDINATOR 350.1.13.10 i ty of REGIONAL 4.2.7.2.686 Dwayne as MATERNAL [id number] [facility] & [address] 2022-07-03 2022-07-03 Outpatient [facility] [id number] Univers 11:00:00 11:00:00 [facility] 2022-06-24 2022-06-24 Telephone [facility]ure[facility]ADAL[facility] 1.2.840.114 [id number] Univers 00:00:00 00:00:00 Alma Estevez ENVIRONMENTAL SYSTEMS COORDINATOR 350.1.13.10 ity of REGIONAL 4.2.7.2.686 [place]way[place] as MATERNAL [id number] [address] 2022-06-23 2022-06-23 Telemedici Faculty, Reddy [facility] 1.2.840.114 [id number] Univers 15:30:00 16:00:00 ne Visit Seth Kay ENVIRONMENTAL SYSTEMS COORDINATOR 350.1.13. 10 ity of REGIONAL 4.2.7.2.686 Dwayne as MATERNAL [id number] [facility] & CHILD [address] [place] [address] 2022-06-23 2022-06-23 Outpatient R [facility] [id number] Univers 15:30:00 15:30:00 SETH [facility] 2022-06-19 2022-06-19 Telephone [facility] 1.2.542.707 [id number] Univers 00:00:00 00:00:00 Mallory ENVIRONMENTAL SYSTEMS COORDINATOR 350.1.13.10 it y of [facility] 4.2.7.2.686 Dwayne as MATERNAL [id number] [facility] & CHILD [address] [place] [address] 2022-06-18 2022-06-18 Telephone [facility] 1.2.983.598 [id number] Univers 00:00:00 00:00:00 Mallory ENVIRONMENTAL SYSTEMS COORDINATOR 350.1.13.10 it y of [facility] 4.2.7.2.686 Dwayne as MATERNAL [id number] [facility] & CHILD [address] [place] [address] 2022-06-17 2022-06-17 Outpatient R IRMA, [facility] [id number] Univers 14:45:00 15:19:39 ALMA hammonds o f [facility] 2022-06-17 2022-06-17 Initial [facility] 1.2.500.990 [id number] Univers 14:45:00 15:19:39 Alma Estevez ENVIRONMENTAL SYSTEMS COORDINATOR 350.1.13.10 ity of Visit [facility] 4.2.7.2.686 Dwayne as MATERNAL [id number] [facility] & CHILD [address] [place] [address] 2022-06-17 2022-06-17 Orders Doctor COLT 1.2.840.114 [id number] Univers 00:00:00 00:00:00 Only Unassigned, STEPHANIA 350.1.13.10 ity of [place] [facility] 4.2.7.2.[id number] [facility] [address] 2022-04-21 2022-04-21 Emergency X ARIZMENDI, [facility] ERT [id number] Univers 20:35:00 23:49:00 KIARRA garciay [facility] 2022-04-21 2022-04-21 Emergency [facility] 1.2.840.114 [id number] Univers 20:35:00 23:49:00 [facility] 350.1.13.10 i ty [facility] 4.2.7.2.686 [place] [id number] [facility] [address] [place] 2022-03-28 2022-03-28 Outpatient R GIULIANO [facility] [id number] Univers 13:00:00 13:00:00 RADHA [facility] 2022-03-18 2022-03-18 Outpatient R JF [facility] [id number] Univers 14:15:00 15:00:29 MAU [facility] 2022-03-18 2022-03-18 Nurse Nurse, [facility] 1.2.840.114 [id number] Univers 14:15:00 14:35:00 Visit Unknown, Attending HEALTH 350.1.13.10 [facility] 4.2.7.2.686 Dwayne as JORGE?BLEA [id number] [address] MEDICAL OFFICE BUILDING 2022-03-04 2022-03-04 Outpatient [facility] [id number] Univers 11:00:00 11:52:45 RADHA garciaUnited Regional Healthcare System 2022-03-04 2022-03-04 Routine Provider, Ember [facility] 1 .2.840.114 [id number] Univers 11:00:00 11:52:45 Radha Nobles ENVIRONMENTAL SYSTEMS COORDINATOR 350.1.13. 10 ity of Visit [facility] 4.2.7.2.686 Dwayne as MATERNAL [id number] Med ical & CHILD [address] [place] [address] 2022-02-20 2022-02-20 Case [facility] 1.2.840.114 [id number] Univers 00:00:00 00:00:00 Management Dennys GUTIERREZ 350.1.13.10 ity [facility] 4.2.7.2.686 [place] [facility] [id number] [address] 2022-02-17 2022-02-17 Outpatient R [facility] [id number] Univers 15:00:00 15:00:00 ity [facility] 2022-02-16 2022-02-16 Emergency X AGUS [facility] ERT [id number] Univers 12:01:00 17:40:00 RAVEN [facility] 2022-02-16 2022-02-16 Emergency [facility] 1.2.905.511 [id number] Univers 12:01:00 17:40:00 Rvaen ELMO 350.1.13.10 i ty [facility] 4.2.7.2.686 [place] [id number] [facility] [address] 2022-02-10 2022-02-12 Inpatient X CHIQUIS KATE [facility] MARGOT 1 [id number] Univers 15:37:00 16:21:00 KATE CHIQUIS [facility] 2022-02-10 2022-02-12 Hospital Eladia Conklin 1 .2.840.114 [id number] Univers 15:37:00 16:21:00 Encounter Chiquis Kate STEPHANIA 350.1.13.10 ity of [facility] 42.7.2.[id number] [facility] [address] 2022-02-11 2022-02-11 Anesthesia Nory Jiménez 1.2.840 .114 [id number] Univers 00:25:00 12:19:00 Event Martha Agarwal 350.1.13.10 ity of [facility] 42.7.2.[id number] [facility] [address] 2022-02-11 2022-02-11 Outpatient Bryn NOBLES [facility] [id number] Univers 10:15:00 10:15:00 RADHA [facility] 2022-02-10 2022-02-10 Telephone [facility] 1.2.840.114 [id number] Univers 00:00:00 00:00:00 Alma Estevez ENVIRONMENTAL SYSTEMS COORDINATOR 350.1.13.10 ity of [facility] 4.2.7.2.686 Dwayne as MATERNAL [id number] Med ical & CHILD [address] [place] [address] 2022-02-07 2022-02-07 Orders Doctor COLT 1.2.840.114 [id number] Univers 00:00:00 00:00:00 Only UnassignedSTEPHANIA 350.1.13.10 ity of [place] [facility] 4.2.7.2.[id number] [facility] [address] 2022-02-06 2022-02-06 Outpatient R FRANCISCO [facility] [id number] Univers 13:30:00 14:32:26 KEVIN [facility] 2022-02-06 2022-02-06 Routine Risk, Zre-Ymugy-Tm/High [facility] 1. 2.840.114 [id number] Univers 13:30:00 14:32:26 Kevin Singh ENVIRONMENTAL SYSTEMS COORDINATOR 350.1.13.10 ity of Visit [facility] 4.2.7.2.686 Dwayne as MATERNAL [id number] [facility] ical & CHILD [address] [place] [address] 2022-02-03 2022-02-03 Outpatient R IRMA, [facility] [id number] Univers 15:15:00 15:34:29 ALMA hammonds o f [facility] 2022-02-03 2022-02-03 Routine [facility] 1.2.774.566 [id number] Univers 15:15:00 15:34:29 Alma Estevez ENVIRONMENTAL SYSTEMS COORDINATOR 350.1.13.10 ity of Visit [facility] 4.2.7.2.686 Dwayne as MATERNAL [id number] [facility] & CHILD [address] [place] [address] 2022-01-30 2022-01-30 Outpatient X MARCO [facility] MARGOT [id number] Univers 15:44:00 17:50:00 DENNYS [facility] 2022-01-30 2022-01-30 Emergency Areli Patel [facility] 1.2.8 40.114 [id number] Univers 15:44:00 17:50:00 Dennys Lara [facility].1.13.10 [facility] 4.2.7.2.686 [place] [facility] [id number] [address] 2022-01-29 2022-01-29 Outpatient R GIULIANO [facility] [id number] Univers 14:45:00 15:15:50 RADHA [facility] 2022-01-29 2022-01-29 Routine Provider, Ember Temp [facility] 1 .2.840.114 [id number] Univers 14:45:00 15:15:50 Radha Nobles ENVIRONMENTAL SYSTEMS COORDINATOR 350.1.13. 10 ity of Visit [facility] 4.2.7.2.686 Dwayne as MATERNAL [id number] [facility] & [address] 2022-01-27 2022-01-27 Outpatient R IRMA [facility] [id number] Univers 13:00:00 14:16:53 ALMA ity o [facility] 2022-01-27 2022-01-27 Routine Terrellaure, [facility] 1.2.453.519 [id number] Univers 13:00:00 14:16:53 Alma C ENVIRONMENTAL SYSTEMS COORDINATOR 350.1.13.10 ity of Visit [facility] 4.2.7.2.686 Dwayne as MATERNAL [id number] [address] 2022 2022 Outpatient [facility] [id number] Univers 15:00:00 15:51:27 ALMA ity o f [facility] 2022 2022 Routine Irma, [facility] 1.2.814.930 [id number] Univers 15:00:00 15:51:27 Alma C ENVIRONMENTAL SYSTEMS COORDINATOR 350.1.13.10 ity of Visit [facility] 4.2.7.2.686 Dwayne as MATERNAL [id number] [address] 2022-01-21 2022-01-21 Outpatient R GIULIANO [facility] [id number] Univers 10:30:00 10:50:45 RADHA ityolie [facility] 2022-01-21 2022-01-21 Routine Provider, [facility] 1 .2.840.114 [id number] Univers 10:30:00 10:50:45 Radha Nobles ENVIRONMENTAL SYSTEMS COORDINATOR 350.1.13. 10 ity of Visit [facility] 4.2.7.2.686 Dwayne as MATERNAL [id number] [facility] & CHILD [address] [place] [address] 2022-01-16 2022-01-16 Outpatient Bryn SHARMA [facility] [id number] Univers 13:30:00 14:01:20 AMY [facility] 2022-01-16 2022-01-16 Routine Risk, Kjw-Ddeyb-Xh/High [facility] 1. 2.840.114 [id number] Univers 13:30:00 14:01:20 Amy Sharma ENVIRONMENTAL SYSTEMS COORDINATOR 350.1.13.10 ity of Visit [facility] 4.2.7.2.686 Dwayne as MATERNAL [id number] [facility] ical & CHILD [address] [place] [address] 2022-01-15 2022-01-15 Telephone [facility] 1.2.840.114 [id number] Univers 00:00:00 00:00:00 Alma Estevez ENVIRONMENTAL SYSTEMS COORDINATOR 350.1.13.10 ity of [facility] 4.2.7.2.686 Dwayne as MATERNAL [id number] [facility] & CHILD [address] [place] [address] 2022-01-13 2022-01-13 Outpatient Bryn NOBLES [facility] [id number] Univers 11:00:00 15:39:45 RADHA [facility] 2022-01-13 2022-01-13 Routine Provider, Ang-Rmchp Temp [facility] 1 .2.840.114 [id number] Univers 11:00:00 11:15:00 Radha Nobles ENVIRONMENTAL SYSTEMS COORDINATOR 350.1.13. 10 ity of Visit [facility] 4.2.7.2.686 [place] as MATERNAL [phone] [facility] & CHILD [address] [place] [address] 2022-01-09 2022-01-09 Ocean Biologist Jenn [facility] 1.2.8 40.114 [id number] Univers 15:00:00 15:15:00 Visit Vira Neal Lowry ELMO 350.1 .13.10 ity of [place] 4.2.7.2.686 [place] PROFESS[place] [phone] [address] 2022-01-09 2022-01-09 Outpatient Bryn SINGH [facility] [id number] Univers 13:45:00 14:34:17 KEVIN [facility] 2022-01-09 2022-01-09 Routine Risk, Mrr-Itbkb-Id/High [facility] 1. 2.840.114 [id number] Univers 13:45:00 14:34:17 AkinAlma nair ENVIRONMENTAL SYSTEMS COORDINATOR 350.1.13 .10 ity of Visit Kevin Singh [facility] 4.2.7.2.686 [place] MATERNAL [phone] [facility] & CHILD [address] [place] [address] 2022-01-07 2022-01-07 Telephone Risk, [facility] 1.2.458.785 [id number] Univers 00:00:00 00:00:00 Ang-Rmchp-N ENVIRONMENTAL SYSTEMS COORDINATOR 350.1.13.10 ity of p/High REGIONAL 4.2.7.2.686 [place] as MATERNAL [id number] [facility] & CHILD 36 [place] [address] 2022-01-06 2022-01-06 Outpatient R VIRA [facility] [id number] Univers 15:30:00 16:45:47 ROLY it y of [facility] 2022-01-06 2022-01-06 Telemedici Faculty, [facility] 1.2.840.114 [id number] Univers 15:30:00 16:45:47 ne Visit Neal Reed ENVIRONMENTAL SYSTEMS COORDINATOR 350.1 .13.10 ity of REGIONAL 4.2.7.2.686 Dwayne as MATERNAL [phone] [facility] & CHILD [address] [place] [address] 2022-01-06 2022-01-06 Routine Alma Solis [facility] 1.2.8 40.114 [id number] Univers 14:45:00 15:33:24 Nima Katzkel R ENVIRONMENTAL SYSTEMS COORDINATOR 350.1.13.1 0 ity of Visit REGIONAL 4.2.7.2.686 Dwayne as MATERNAL [phone] [facility] & CHILD [address] [place] [address] 2022-01-03 2022-01-03 Orders Doctor GREGORY 1.2.840.114 [id number] Univers 00:00:00 00:00:00 Only Unassigned, STEPHANIA 350.1.13.10 ity of [place] [facility] 4.2.7.2.686 Dwayne as [phone] [address] 2022-01-02 2022-01-02 Outpatient R FRANCISCO [facility] [id number] Univers 13:30:00 15:00:16 KEVIN ityolie of [facility] 2022-01-02 2022-01-02 Routine Risk, Rad-Jayhg-Iz/High [facility] 1. 2.840.114 [id number] Univers 13:30:00 15:00:16 Kevin Singh ENVIRONMENTAL SYSTEMS COORDINATOR 350.1.13.10 ity of Visit REGIONAL 4.2.7.2.686 Dwayne as MATERNAL [phone] [facility] ical & CHILD [address] [place] [address] 2022-01-02 2022-01-02 Telephone Irma [facility] 1.2.840.114 [id number] Univers 00:00:00 00:00:00 Alma C ENVIRONMENTAL SYSTEMS COORDINATOR 350.1.13.10 ity of REGIONAL 4.2.7.2.686 Dwayne as MATERNAL [phone] [facility] ical & CHILD [address] [place] [address] 2021-12-30 2021-12-30 Routine Akinlissy, [facility] 1.2.069.233 [id number] Univers 15:30:00 15:45:00 Alma C ENVIRONMENTAL SYSTEMS COORDINATOR 350.1.13.10 ity of Visit [facility] 4.2.7.2.686 Dwayne as MATERNAL [phone] [facility] ical & CHILD [address] [place] [address] 2021-12-30 2021-12-30 Outpatient R IRMA [facility] [id number] Univers 15:30:00 15:30:00 ALMA ity o [facility] 2021-12-17 2021-12-17 Outpatient R IRMA [facility] [id number] Univers 14:00:00 15:10:22 ALMA ity o f [facility] 2021-12-17 2021-12-17 Routine Akinjeanettepe, [facility] 1.2.252.088 [id number] Univers 14:00:00 15:10:22 Alma C ENVIRONMENTAL SYSTEMS COORDINATOR 350.1.13.10 ity of Visit REGIONAL 4.2.7.2.686 Dwayne as MATERNAL [phone] [facility] ical & CHILD [address] [place] [address] 2021-12-13 2021-12-13 [facility] [id number] Univers 09:15:00 09:15:00 ALMA hammonds o f [facility] 2021-12-10 2021-12-10 Telephone [facility] 1.2.840.114 [id number] Univers 00:00:00 00:00:00 Alma Estevez ENVIRONMENTAL SYSTEMS COORDINATOR 350.1.13.10 ity of [facility] 4.2.7.2.686 Dwayne as MATERNAL [phone] [facility] ical & CHILD [address] [place] [address] 2021-12-05 2021-12-05 Abstract [facility] 1.2.840.114 [id number] Univers 00:00:00 00:00:00 Alma Estevez ENVIRONMENTAL SYSTEMS COORDINATOR 350.1.13.10 ity of [facility] 4.2.7.2.686 Dwayne as MATERNAL [phone] [facility] & CHILD [address] [place] [address] 2021-12-01 2021-12-[address] [facility] MARGOT [id number] Univers 14:52:00 18:22:00 LUKE ityolie [facility] 2021-12-01 2021-12-01 [facility] TirsostewarshCOLT 1.2.013.631 [id number] Univers 14:52:00 18:22:00 Encounter Luke CAT 350.1.13.10 ity of [facility] 4.2.7.2.686 Dwayne as [phone] [place] [address] [place] 2021-11-30 2021-11-30 Emergency [facility] [id number] Univers 11:50:00 12:13:00 ARELI hammonds [facility] 2021-11-30 2021-11-30 Emergency [facility] 1.2.840.114 [id number] Univers 11:50:00 12:13:00 Areli GUTIERREZ 350.1.13.10 ity [facility] 4.2.7.2.686 [facility] [phone] [place] [address] [place] 2021-11-30 2021-11-30 Letter COLT Wyman 1.2.840.114 [id number] Univers 00:00:00 00:00:00 (Out) Vijaya Cleopatra CAT 350.1.13.10 it y of [facility] 4.2.7.2.[phone] [facility] [address] [place] 2021-11-29 2021-11-29 Ocean Biologist Ultrasound, [facility] 1.2 .840.114 [id number] Univers 15:15:00 16:00:00 Visit Trever Katz R ENVIRONMENTAL SYSTEMS COORDINATOR 350.1.13.10 ity of Zen Correa REGIONAL 4.2.7.2.686 [place] MATERNAL [phone] [facility] ical & CHILD [address] [facility] 2021-11-29 2021-11-29 Outpatient P [facility] [id number] Univers 15:15:00 15:15:00 ity of [facility] 2021-11-29 2021-11-29 Outpatient R GIANNA [facility] [id number] Univers 07:45:00 08:28:49 EDWARDNDKel ity o f [facility] 2021-11-29 2021-11-29 Routine [facility] 1.2.840.114 [id number] Univers 07:45:00 08:28:49 Trever Clemente ENVIRONMENTAL SYSTEMS COORDINATOR 350.1.13.10 ity of Visit [facility] 4.2.7.2.686 Dwayne as MATERNAL [phone] [facility] & CHILD [address] [place] [address] 2021-11-28 2021-11-28 Outpatient R IRMA [facility] [id number] Univers 14:45:00 14:45:00 ALMA ity o f [facility] 2021-11-19 2021-11-19 Telephone [facility] 1.2.840.114 [id number] Univers 00:00:00 00:00:00 Alma Estevez ENVIRONMENTAL SYSTEMS COORDINATOR 350.1.13.10 ity of [facility] 4.2.7.2.686 Dwayne as MATERNAL [phone] [facility] & CHILD [address] [place] [address] 2021-11-12 2021-11-12 Routine [facility] 1.2.955.523 [id number] Univers 14:45:00 15:00:00 Alma C ENVIRONMENTAL SYSTEMS COORDINATOR 350.1.13.10 ity of Visit REGIONAL 4.2.7.2.686 Dwayne as MATERNAL [phone] Med ical & CHILD [address] [place] [address] 2021-11-12 2021-11-12 Outpatient R IRMA [facility] [id number] Univers 14:45:00 14:45:00 ALMA pierce [facility] 2021-11-04 2021-11-04 Telemedici Faculty, [facility] 1.2.840.114 [id number] Univers 15:00:00 15:30:00 ne Visit Anton Renteria ENVIRONMENTAL SYSTEMS COORDINATOR 350.1.13.10 ity of REGIONAL 4.2.7.2.686 Dwayne as MATERNAL [phone] Med ical & CHILD [address] [place] [address] 2021-11-04 2021-11-04 Outpatient P DEXTER [facility] [id number] Univers 15:00:00 15:00:00 ANTON braxton kari [facility] 2021-10-28 2021-10-28 Outpatient P [facility] [id number] Univers 15:00:00 15:00:00 ity of [facility] 2021-10-22 2021-10-22 Abstract [facility] 1.2.840.114 [id number] Univers 00:00:00 00:00:00 Alma C ENVIRONMENTAL SYSTEMS COORDINATOR 350.1.13.10 ity of REGIONAL 4.2.7.2.686 Dwayne as MATERNAL [phone] Med ical & CHILD [address] [place] [address] 2021-10-17 2021-10-17 Ocean Biologist 1[facility] 1.2. 840.114 [id number] Univers 14:15:00 16:36:19 Visit Abena Patel ENVIRONMENTAL SYSTEMS COORDINATOR 350.1.13.10 ity of REGIONAL 4.2.7.2.686 Dwayne as MATERNAL [phone] Med ical & CHILD 369 [facility] 2021-10-17 2021-10-17 [facility] [id number] Univers 14:15:00 14:15:00 ABENA ity [facility] 2021-10-15 2021-10-15 Outpatient R AKINSIPE, [facility] [id number] Univers 13:00:00 13:45:11 ALMA ity o [facility] 2021-10-15 2021-10-15 Routine Akinpe, [facility] 1.2.831.530 [id number] Univers 13:00:00 13:45:11 Alma C ENVIRONMENTAL SYSTEMS COORDINATOR 350.1.13.10 ity of Visit [facility] 4.2.7.2.686 Dwayne as MATERNAL [phone] [address] 2021-10-11 2021-10-11 Outpatient P [facility] [id number] Univers 14:15:00 14:15:00 ity of [facility] 2021-10-07 2021-10-07 Outpatient [facility] [id number] Univers 12:45:00 13:37:44 ALMA garciay o [facility] 2021-10-07 2021-10-07 Routine [facility] 1.2.942.337 [id number] Univers 12:45:00 13:37:44 Alma C ENVIRONMENTAL SYSTEMS COORDINATOR 350.1.13.10 ity of Visit [facility] 4.2.7.2.686 Dwayne as MATERNAL [phone] [address] 2021-10-07 2021-10-07 Orders Doctor COLT 1.2.840.114 [id number] Univers 00:00:00 00:00:00 Only Unassigned, STEPHANIA 350.1.13.10 ity of [place] [facility] 4.2.7.2.686 Dwayne as [phone] [address] 2021-10-03 2021-10-03 Outpatient R [facility] [id number] Univers 16:00:00 16:00:00 ALMA ity o [facility] 2021-09-19 2021-09-19 Orders Doctor COLT 1.2.840.114 [id number] Univers 00:00:00 00:00:00 Only Unassigned, STEPHANIA 350.1.13.10 ity of [place] [facility] 4.2.7.2.686 Dwayne as [phone] [address] 2021-09-05 2021-09-05 Outpatient R [facility] [id number] Univers 15:30:00 16:02:29 ALMA ity o f [facility] 2021-09-05 2021-09-05 Routine [facility] 1.2.151.526 [id number] Univers 15:30:00 16:02:29 Alma Estevez ENVIRONMENTAL SYSTEMS COORDINATOR 350.1.13.10 ity of Visit REGIONAL 4.2.7.2.686 Dwayne as MATERNAL [phone] Med ical & CHILD [address] [place] [address] 2021-09-02 2021-09-02 Orders Doctor COLT 1.2.840.114 [id number] Univers 00:00:00 00:00:00 Only Unassigned, STEPHANIA 350.1.13.10 ity of [place] [facility] 4.2.7.2.686 Dwayne as [phone] [address] 2021-08-19 2021-08-19 [facility] [id number] Univers 15:00:00 15:00:00 LUKE hammonds [facility] 2021-08-19 2021-08-19 Ocean Biologist Lab, [facility] 1.2.840. 114 [id number] Univers 15:00:00 15:00:00 Visit Luke Fish ENVIRONMENTAL SYSTEMS COORDINATOR 350.1.13.10 ity of REGIONAL 4.2.7.2.686 Dwayne as MATERNAL [phone] Med ical & CHILD [address] [place] [address] 2021-08-19 2021-08-19 Ocean Biologist 1, [facility] 1.2. 840.114 [id number] Univers 14:15:00 14:51:59 Visit Luke Fish ENVIRONMENTAL SYSTEMS COORDINATOR 350.1.13.10 ity of REGIONAL 4.2.7.2.686 Dwayne as MATERNAL [phone] [facility] CH[facility] [address] [place] [address] 2021-08-19 2021-08-19 Outpatient P [facility] [id number] Univers 14:15:00 14:15:00 ity of [facility] 2021-08-19 2021-08-19 Abstract [facility] 1.2.840.114 [id number] Univers 00:00:00 00:00:00 Alma C ENVIRONMENTAL SYSTEMS COORDINATOR 350.1.13.10 ity of REGIONAL 4.2.7.2.686 Dwayne as MATERNAL [phone] [address] 2021-08-08 2021-08-08 Outpatient [facility] [id number] Univers 15:30:00 16:15:10 ALMA hammonds o [facility] 2021-08-08 2021-08-08 Routine [facility] 1.2.138.238 [id number] Univers 15:30:00 16:15:10 Alma C ENVIRONMENTAL SYSTEMS COORDINATOR 350.1.13.10 ity of Visit REGIONAL 4.2.7.2.686 Dwayne as MATERNAL [phone] [address] 2021-08-08 2021-08-08 Outpatient R IRMA, [facility] [id number] Univers 15:30:00 16:15:10 ALMA radhay o [facility] 2021-08-08 2021-08-08 Outpatient R IRMA, [facility] [id number] Univers 15:30:00 15:30:00 ALMA ity o [facility] 2021-07-25 2021-07-25 Telephone [facility] 1.2.840.114 [id number] Univers 00:00:00 00:00:00 Alma C ENVIRONMENTAL SYSTEMS COORDINATOR 350.1.13.10 ity of REGIONAL 4.2.7.2.686 Dwayne as MATERNAL [phone] [facility] & [address] 2021-07-192021-07-19 Orders Doctor COLT 1.2.840.114 [id number] Univers 00:00:00 00:00:00 Only Unassigned, STEPHANIA 350.1.13.10 ity of [place] [facility] 4.2.7.2.686 Dwayne as [phone] [address] 2021-07-18 2021-07-18 Outpatient Bryn SHARMA [facility] [id number] Univers 13:15:00 13:52:24 AMY hammonds [facility] 2021-07-18 2021-07-18 Routine Risk, Jol-Xvxmb-Tt/High [facility] 1. 2.840.114 [id number] Univers 13:15:00 13:52:24 Amy Sharma ENVIRONMENTAL SYSTEMS COORDINATOR 350.1.13.10 ity of Visit REGIONAL 4.2.7.2.686 Dwayne as MATERNAL [phone] Med ical & CHILD [address] [place] [address] 2021-07-11 2021-07-11 Outpatient R IRMA, [facility] [id number] Univers 15:00:00 16:21:03 ALMA ity o f [facility] 2021-07-11 2021-07-11 Initial [facility] 1.2.741.669 [id number] Univers 15:00:00 16:21:03 Alma Estevez ENVIRONMENTAL SYSTEMS COORDINATOR 350.1.13.10 ity of Visit REGIONAL 4.2.7.2.686 Dwanye as MATERNAL [phone] [facility] ical & CHILD [address] [place] [address] 2021-07-11 2021-07-11 Outpatient [facility] [id number] Univers 15:00:00 16:21:03 ALMA ityolie o f [facility] 2021-07-11 2021-07-11 Orders Doctor GREGORY 1.2.840.114 [id number] Univers 00:00:00 00:00:00 Only Unassigned, STEPHANIA 350.1.13.10 ity of [place] [facility] 4.2.7.2.686 Dwayne as [phone] [address] 2021-05-14 2021-05-14 Outpatient RICHARD DYKES [facility] [id number] Univers 10:40:00 10:40:00 RICHARD ANDERSON cassius [facility] 2021-04-27 2021-04-27 Letter COLT Wyman 1.2.840.114 [id number] Univers 00:00:00 00:00:00 (Out) Vijaya CAT 350.1.13.10 it y of [facility] 4.2.7.2.686 Dwayne as [phone] [address] 2021-04-26 2021-04-26 Emergency X [facility] ERT [id number] Univers 17:29:00 19:21:00 KIARRA hammonds [facility] 2021-04-26 2021-04-26 Emergency [facility] 1.2.840.114 [id number] Univers 17:29:00 19:21:00 Kiarra [facility] 350.1.13.10 i ty of [place] 4.2.7.2.686 [facility] [phone] [address] 2021-04-25 2021-04-25 Outpatient R [facility] [id number] Univers 09:45:00 09:54:55 ANGELO [facility] 2021-04-25 2021-04-25 Office Anne [facility] 1.2.099.864 [id number] Univers 09:45:00 09:54:55 Visit [facility] 350.1.13.10 it y of [place] 4.2.7.2.686 Dwayne as JORGE?BLEA [phone] La anselmo GALLARDO [address] [place] [address] MEDICAL OFFICE BUILDING 2021-04-18 2021-04-18 Emergency [facility] ERT [id number] Univers 12:29:00 15:20:00 BERTHA radhayolie [facility] 2021-04-18 2021-04-18 Emergency [facility] 1.2.398.717 [id number] Univers 12:29:00 15:20:00 Bertha [facility] 350.1.13.10 i ty of [place] 4.2.7.2.686 [facility] [phone] [address] 2021-04-18 2021-04-18 Orders Doctor COLT 1.2.840.114 [id number] Univers 00:00:00 00:00:00 Only Unassigned, STEPHANIA 350.1.13.10 ity of [place] [facility] 4.2.7.2.686 Dwayne as [phone] [address] 2021-04-05 2021-04-05 Telephone [facility] 1.2.840.114 [id number] Univers 00:00:00 00:00:00 Alma Estevez ENVIRONMENTAL SYSTEMS COORDINATOR 350.1.13.10 ity of [facility] 4.2.7.2.686 Dwayne as MATERNAL [phone] Med ical & CHILD [address] [place] [address] 2021-03-22 2021-03-22 Refill Justin [facility] 1.2.840.114 [id number] Univers 00:00:00 00:00:00 [facility] 350.1.13.10 ity of [place] 4.2.7.2.686 Dwayne as JORGE?BLEA [phone] [address] OFFICE [facility] 2021-03-12 2021-03-12 Office Justin [facility] 1.2.840.114 [id number] Univers 16:00:00 16:44:59 Visit [facility] 350.1.13.10 ity of [place] 4.2.7.2.686 Dwayne as JORGE?BLEA [phone] [address] OFFICE [facility] 2021-03-12 2021-03-12 Outpatient RICHARD DYKES [facility] [id number] Univers 16:00:00 16:44:59 RICHARD ANDERSON [facility] 2021-03-12 2021-03-12 Outpatient RICHARD DYKES [facility] [id number] Univers 16:00:00 16:00:00 RICHARD ANDERSON [facility] 2021-02-26 2021-02-26 Telephone Justin [facility] 1.2.840.114 [id number] Univers 00:00:00 00:00:00 [facility] 350.1.13.10 ity of [place] 4.2.7.2.686 Dwayne as JORGE?BLEA [phone] [address] MEDICAL OFFICE [facility] 2021-02-17 2021-02-17 Emergency X SALAS [facility] ERT [id number] Univers 18:01:00 22:48:00 ARMEN ity [facility] 2021-02-17 2021-02-17 Emergency Raven Goldsmith [facility] 1.2.840. 114 [id number] Univers 18:01:00 22:48:00 Armen Rodriguez [place] 350.1.13.10 ity of [place] 4.2.7.2.686 [place] [phone] [address] 2021-01-11 2021-01-11 Ocean Biologist Lab, [facility] 1.2.840. 114 [id number] Univers 10:24:34 10:39:34 Visit Abena Patel ENVIRONMENTAL SYSTEMS COORDINATOR 350.1.13.10 ity [facility] 4.2.7.2.686 Dwayne as MATERNAL [phone] Med ical & CHILD [address] [place] [address] 2021-01-11 2021-01-11 Outpatient Bryn PATEL [facility] [id number] Univers 10:30:00 10:30:00 ABENA hammonds [facility] 2020-12-21 2020-12-21 [facility] 1.2.840.114 [id number] Univers 00:00:00 00:00:00 [facility] 350.1.13.10 ity [facility] 4.2.7.2.686 Dwayne as Jorge?Blea [phone] [place] anselmo [address] Office [facility] 2020-12-18 2020-12-18 Outpatient Bryn PATEL [facility] [id number] Univers 09:00:00 09:00:00 ABENA hammonds [facility] 2020-11-26 2020-11-26 Office [facility] 1.2.840.114 [id number] Univers 07:48:27 09:58:10 Visit [facility].1.13.10 [facility] 4.2.7.2.686 Dwayne as Jorge?Blea [phone] [place] an[place]mo waterman[address] Office [facility] 2020-11-26 2020-11-26 Outpatient R RICHARD ANDERSON [facility] [id number] Univers 08:00:00 08:00:00 RICHARD ANDERSON cassius [facility] 2020-11-26 2020-11-26 Letter Justin [facility] 1.2.840.114 [id number] Univers 00:00:00 00:00:00 (Out) Richard [facility] 350.1.13.10 ity of [place] 4.2.7.2.686 Dwayne as Jorge?Blea [phone] [address] Office [facility] 2020-11-20 2020-11-20 Outpatient Bryn JUSTIN RICHARD [facility] [id number] Univers 08:00:00 08:00:00 JUSTINRICHARD [facility] 2020-11-14 2020-11-14 Telephone Justni [facility] 1.2.840.114 [id number] Univers 00:00:00 00:00:00 Richard [facility] 350.1.13.10 ity [facility] 4.2.7.2.[place] [facility] [phone] [place] anselmo thomas [address] [place] [address] 2020-11-01 2020-11-01 Outpatient R BRAD [facility] [id number] Univers 14:00:00 14:35:39 LILIANA hammonds [facility] 2020-11-01 2020-11-01 Office [facility] 1.2.840.114 [id number] Univers 13:43:12 14:35:39 Visit Liliana Evelin SPECIALTY 350.1.13.10 ity of [place]2.7.2.[place] [facility] AT [phone] La maria victoriaazalia BEDOYA [address] [place] [address] 2020-11-01 2020-11-01 Office [facility] 1.2.840.114 [id number] Univers 13:43:12 14:35:39 Visit Liliana Evelin SPECIALTY 350.1.13.10 ity of CARE 4.2.7.2.686 [facility] AT [phone] [place] anselmo BEDOYA [address] [facility] 2020-11-01 2020-11-01 Outpatient Bryn SALINAS [facility] [id number] Univers 14:00:00 14:00:00 LILIANA hammonds [facility] 2020-10-19 2020-10-19 Outpatient R RICHARD ANDERSON [facility] [id number] Univers 08:40:00 08:40:00 RICHARD ANDERSON [facility] 2020-10-18 2020-10-18 [facility] 1.2.840.114 [id number] Univers 12:54:28 23:59:00 Encounter Lauryn Gutierrez 350.1.13.10 [facility] 4.2.7.2.686 [facility] [phone] [facility] [address] [place] 2020-10-18 2020-10-18 Outpatient Bryn RAMÍREZ [facility] [id number] Univers 00:00:00 00:00:00 LAURYN braxton [facility] 2020-10-15 2020-10-15 Telephone [facility] 1.2.840.114 [id number] 00:00:00 00:00:00 Abena N ENVIRONMENTAL SYSTEMS COORDINATOR 350.1.13.10 [facility] 4.2.7.2.686 MATERNAL [phone] & CHILD 107 [facility] 2020-10-15 2020-10-15 Telephone Jorge AZSONJA 1.2.840.114 [id number] Univers 00:00:00 00:00:00 Abena Camarillo ENVIRONMENTAL SYSTEMS COORDINATOR 350.1.13.10 it y [facility] 4.2.7.2.686 Dwayne MATERNAL [phone] Med ical & CHILD 107 [facility] 2020-10-12 2020-10-12 Telephone Jorge [facility] 1.2.840.114 [id number] 00:00:00 00:00:00 Abena Camarillo ENVIRONMENTAL SYSTEMS COORDINATOR 350.1.13.10 [facility] 4.2.7.2.686 MATERNAL [phone] & CHILD 107 [facility] 2020-10-12 2020-10-12 Telephone [facility] 1.2.840.114 [id number] Univers 00:00:00 00:00:00 Abena N ENVIRONMENTAL SYSTEMS COORDINATOR 350.1.13.10 it y of REGIONAL 4.2.7.2.686 Dwayne as MATERNAL [phone] [facility] & CHILD [address] [place] [address] 2020-10-11 2020-10-11 [facility] [id number] Univers 15:15:00 15:15:00 ABENA cassius [facility] 2020-10-11 2020-10-11 Telephone [facility] 1.2.840.114 [id number] 00:00:00 00:00:00 Abena N ENVIRONMENTAL SYSTEMS COORDINATOR 350.1.13.10 REGIONAL 4.2.7.2.686 MATERNAL [id number] & CHILD [address] [place] [address] 2020-10-11 2020-10-11 Telephone [facility] [id number] [id number] Univers 00:00:00 00:00:00 Abena Camarillo ENVIRONMENTAL SYSTEMS COORDINATOR 350.1.13.10 it y of [facility] 4.2.7.2.686 Dwayne as MATERNAL [phone] [facility] & CHILD [address] [place] [address] 2020-10-09 2020-10-09 Office [facility] [id number] 15:44:08 16:29:53 Visit Abena Camarillo ENVIRONMENTAL SYSTEMS COORDINATOR 350.1.13.10 REGIONAL 4.2.7.2.686 MATERNAL [phone] & CHILD [address] [place] [address] 2020-10-09 2020-10-09 Office [facility] [id number] Univers 15:44:08 16:29:53 Visit Abena N ENVIRONMENTAL SYSTEMS COORDINATOR 350.1.13.10 it y of REGIONAL 4.2.7.2.686 Dwayne as MATERNAL [phone] [facility] & CHILD [address] [place] [address] 2020-10-09 2020-10-09 [facility]patient [facility] [id number] Univers 15:45:00 15:45:00 ABENA hammonds [facility] 2020-10-09 2020-10-09 Orders Doctor GREGORY 1.2.840.114 [id number] Univers 00:00:00 00:00:00 Only Unassigned, STEPHANIA 350.1.13.10 ity of [facility] 4.2.7.2.[phone] [facility] [address] 2020-10-08 2020-10-08 Transition Julio Grant 1.2.840.114 [id number] Univers 00:00:00 00:00:00 of Care Mesfin Begum Guerrero 350.1.13.10 ity of [place].[address] [place] [phone] [facility] [address] 2020-10-01 2020-10-05 Hospital Mary Rios 1.2.840.114 [id number] Univers 09:39:00 10:22:00 Encounter [place] 350.1.13.10 ity of Hospital 4.2.7.2.[phone] [facility] [address] 2020-10-01 2020-10-01 Outpatient R MARY RIOS [facility] [id number] Univers 08:30:00 08:30:00 ity of [facility] 2020-10-01 2020-10-01 Orders Doctor GREGORY 1.2.840.114 [id number] Univers 00:00:00 00:00:00 Only Unassigned, STEPHANIA 350.1.13.10 ity of [place] [facility] 4.2.7.2.[phone] [facility] [address] [place] 2020-09-30 2020-09-30 Orders Doctor GREGORY 1.2.840.114 [id number] Univers 00:00:00 00:00:00 Only Unassigned, STEPHANIA 350.1.13.10 ity of [place] [facility] 4.2.7.2.[phone] [facility] [address] [place] 2020-09-28 2020-09-28 Outpatient R JORGE [facility] [id number] Univers 09:30:00 09:30:00 ABENA ity [facility] 2020-09-26 2020-09-26 Laboratory Only, Adc Test [facility] 1.2.840. 114 [id number] Univers 12:05:49 12:20:49 Only Mary Rios Og 350.1.13.10 ity of [place] [phone] [facility] [address] 2020-09-26 2020-09-26 Outpatient R [facility] [id number] Univers 12:00:00 12:00:00 ity of [facility] 2020-09-26 2020-09-26 Orders Doctor GREGORY 1.2.840.114 [id number] Univers 00:00:00 00:00:00 Only Unassigned, STEPHANIA 350.1.13.10 ity of [place] [facility] 4.2.7.2.[address] [phone] [facility] [address] 2020-09-21 2020-09-21 Outpatient R RICHARD ANDERSON [facility] [id number] Univers 10:00:00 10:00:00 RICHARD ANDERSON ity of [facility] 2020-09-14 2020-09-15 Emergency Glenis, TRAUMA 1.2.110.258 [id number] Univers 21:58:00 00:49:00 Cheo [facility] 350.1.13.10 it[place] [place] [phone] [facility] 014 [address] 2020-09-12 2020-09-13 Emergency [place] [facility] 1.2.840.114 [id number] Univers 19:41:00 00:37:00 Yulia Gutierrez 350.1.13.10 i [place] [phone] [facility] 084 [address] 2020-09-12 2020-09-12 Telephone Justin [facility] 1.2.840.114 [id number] Univers 00:00:00 00:00:00 Richard Gutierrez 350.1.13.10 it[place] of [place] [phone] [facility] [address] [facility] 2020-09-11 2020-09-11 Emergency [facility] 1.2.763.644 [id number] Univers 20:23:00 22:08:00 Wong Gutierrez 350.1.13.10 i ty of [place] 4.2.7.2.686 [facility] [phone] [address] 2020-08-31 2020-08-31 Emergency Kwaku [facility] 1.2.840.114 [id number] Univers 11:19:00 13:58:00 Yulia [place] 350.1.13.10 i ty of [place] 4.2.7.2.686 [facility] [phone] [address] 2020-08-29 2020-08-29 Emergency [facility] 1.2.840.114 [id number] Univers 20:48:00 23:11:00 Yulia Gutierrez 350.1.13.10 i ty of [place] 4.2.7.2.686 [facility] [phone] [address] 2020-06-07 2020-06-07 Office [facility] 1.2.868.312 [id number] [facility] 10:50:31 11:18:03 Visit Alma Estevez ENVIRONMENTAL SYSTEMS COORDINATOR 350.1.13.10 ity of [facility] 4.2.7.2.686 [place] as MATERNAL [phone] Med ical & CHILD [address] [place] [address] 2020-06-07 2020-06-07 Outpatient R IRMA [facility] [id number] Univers 11:00:00 11:00:00 ALMA hammonds o f [facility] 2020-05-29 2020-05-29 Patient [facility] 1.2.840.114 [id number] Univers 00:00:00 00:00:00 Outreach Santosh PRIMARY 350.1.13.10 i ty of [place] [facility] 4.2.7.2.686 [facility] [phone] La dical [address] [place] [address] 2020-05-13 2020-05-13 Emergency [facility] 1.2.840.114 [id number] Univers 19:12:00 21:45:00 Yulia Gutierrez 350.1.13.10 i ty of [place] 4.2.7.2.686 [facility] [phone] [facility] [address] [place] 2020-05-13 2020-05-13 Orders Doctor COLT 1.2.840.114 [id number] Univers 00:00:00 00:00:00 Only Unassigned, STEPHANIA 350.1.13.10 ity of [place] [facility] 4.2.7.2.[phone] [facility] [address] [place] 2020-01-19 2020-01-19 Telephone Visit, [facility] 1.2.705.885 [id number] Univers 00:00:00 00:00:00 [facility] ENVIRONMENTAL SYSTEMS COORDINATOR 350.1.13.10 ity of Nurse [facility] 4.2.7.2.686 [place] as MATERNAL [phone] Med ical & CHILD [address] [place] [address] 2020-01-17 2020-01-17 Office Gianna [facility] 1.2.840.114 [id number] Univers 13:39:45 14:25:08 Visit Trever Clemente ENVIRONMENTAL SYSTEMS COORDINATOR 350.1.13.10 ity of [facility] 4.2.7.2.686 [place] MATERNAL [phone] Med ical & CHILD [address] [place] [address] 2020-01-17 2020-01-17 Outpatient R GIANNA [facility] [id number] Univers 13:45:00 13:45:00 TREVER ity o f [facility] 2020-01-16 2020-01-16 [facility]phone [facility] 1.2.569.592 [id number] Univers 00:00:00 00:00:00 Trever Clemente ENVIRONMENTAL SYSTEMS COORDINATOR 350.1.13.10 ity of [facility] 4.2.7.2.686 [place] as MATERNAL [phone] Med ical & CHILD [address] [place] [address] 2019-12-30 2019-12-30 Nurse Visit, [facility] Nurse [facility] 1.2 .840.114 [id number] Univers 10:22:21 10:37:21 Visit Abena Patel ENVIRONMENTAL SYSTEMS COORDINATOR 350.1.13.10 ity of [facility] 4.2.7.2.686 [place] as MATERNAL [phone] Med ical & CHILD [address] [place] [address] 2019-12-30 2019-12-30 Outpatient R [facility] [id number] Univers 10:30:00 10:30:00 ity of [facility] 2019-12-21 2019-12-21 Telephone [facility] 1.2.274.546 [id number] Univers 00:00:00 00:00:00 Trever Bryn ENVIRONMENTAL SYSTEMS COORDINATOR 350.1.13.10 ity of [facility] 4.2.7.2.686 [place] as MATERNAL [phone] [facility] ical & CHILD [address] [place] [address] 2019-12-20 2019-12-20 Office [facility] 1.2.840.114 [id number] Univers 13:03:11 13:55:34 Visit Edwardember Clemente ENVIRONMENTAL SYSTEMS COORDINATOR 350.1.13.10 ity of [facility] 4..7.2.686 [place] as MATERNAL [phone] [facility] & CHILD [address] [place] [address] 2019-12-20 2019-12-20 Outpatient [facility] [id number] Univers 12:45:00 12:45:00 [facility] 2019-10-24 2019-10-24 Telephone [facility] 1.2.840.114 [id number] Univers 00:00:00 00:00:00 Abena Camarillo ENVIRONMENTAL SYSTEMS COORDINATOR 350.1.13.10 it y of [facility] 4.2.7.2.686 [place] MATERNAL [phone] [facility] & [address] 2019-10-17 2019-10-17 Outpatient R [facility] [id number] Univers 15:00:00 15:00:00 ity of [facility] 2019-09-28 2019-09-28 Telephone [facility] 1.2.840.114 [id number] Univers 00:00:00 00:00:00 Abena Camarillo ENVIRONMENTAL SYSTEMS COORDINATOR 350.1.13.10 it y of [facility] 4.2.7.2.686 [place] as MATERNAL [phone] [facility] & CH[facility] [address] [place] [address] 2019-09-27 2019-09-27 Office [facility] 1.2.309.571 [id number] Univers 14:03:06 14:59:44 Visit Abena N ENVIRONMENTAL SYSTEMS COORDINATOR 350.1.13.10 it y of [facility] 4.2.7.2.686 [place] as MATERNAL [phone] [facility] & [address] 2019-09-27 2019-09-27 Outpatient R JORGE [facility] [id number] Univers 14:00:00 14:00:00 ABENA cassius [facility] 2019-08-26 2019-08-26 Ocean [facility] Lab, Ang-Rmchp [facility] 1.2.840. 114 [id number] Univers 12:52:43 13:06:01 Visit Alma Solis ENVIRONMENTAL SYSTEMS COORDINATOR 350.1.13. 10 ity of [facility] 4.2.7.2.686 [place] MATERNAL [phone] [facility] & [address] 2019-08-26 2019-08-26 [facility] [id number] Univers 13:00:00 13:00:00 ALMA hammonds o f [facility] 2019-08-19 2019-08-19 Outpatient R [facility] [id number] Univers 13:00:00 13:00:00 ity of [facility] 2019-08-18 2019-08-18 Outpatient R [facility] [id number] Univers 13:00:00 13:00:00 ity of [facility] 2019-08-18 2019-08-18 Emergency [facility] [id number] Univers 08:24:15 11:52:00 RAVEN hammonds [facility] 2019-08-18 2019-08-18 Emergency [facility] 1.2.962.791 [id number] Univers 08:24:15 11:52:00 Raven Gutierrez 350.1.13.10 i ty of [place] [phone] [facility] [address] [place] 2019-08-18 2019-08-18 Orders Doctor COLT 1.2.840.114 [id number] Univers 00:00:00 00:00:00 Only Unassigned, STEPHANIA 350.1.13.10 ity of [place] [facility] 4.2.7.2.[phone] [facility] [address] 2019-07-31 2019-07-31 Telephone COLT Miramontes 1.2.671.429 [id number] Univers 00:00:00 00:00:00 Kevinkel CAT 350.1.13.10 i ty of [facility] 4.2.7.2.[phone] [facility] [address] 2019-07-28 2019-07-29 Emergency X LINWOOD, [facility] ERT [id number] Univers 18:06:33 00:02:00 SHINTA ity [facility] 2019-07-28 2019-07-29 Emergency [facility] 1.2.840.114 [id number] Univers 18:06:33 00:02:00 [facility] 350.1.13.10 i ty of [place] [phone] [place]1654 Branch 2019-07-18 2019-07-18 Telemedici [facility] 1.2.840.114 [id number] Univers 12:55:14 14:20:25 ne Visit Alma Estevez ENVIRONMENTAL SYSTEMS COORDINATOR 350.1.13.10 ity of [facility] 4.2.7.2.686 [place] as MATERNAL [phone] Med ical & CHILD [address] [facility] 2019-07-18 2019-07-18 Outpatient R IRMA [facility] [id number] Univers 14:00:00 14:00:00 ALMA hammonds o f [facility] 2019-06-27 2019-06-27 Outpatient R [facility] [id number] Univers 15:30:00 15:30:00 ity of [facility] 2019-06-26 2019-06-26 Emergency X [facility] [id number] Univers 19:06:29 21:03:00 LORY ity [facility] 2019-06-26 2019-06-26 [facility] 1.2.840.114 [id number] Univers 19:06:29 21:03:00 [facility] 350.1.13.10 ity of [place] [phone] [facility] 014 Branch (CLC) 2019-06-26 2019-06-26 Telephone Akinsipe, [facility] 1.2.840.114 [id number] Univers 00:00:00 00:00:00 Alma Estevez ENVIRONMENTAL SYSTEMS COORDINATOR 350.1.13.10 ity of [facility] 4.2.7.2.686 [place] as MATERNAL [phone] [facility] CHILD [address] [place] [address] 2019-06-24 2019-06-24 Outpatient R [facility] [id number] Univers 09:30:00 09:30:00 ity [facility] 2019-06-23 2019-06-23 Telemedici [facility] 1.2.840.114 [id number] Univers 12:57:38 15:49:57 ne Visit Alma Estevez ENVIRONMENTAL SYSTEMS COORDINATOR 350.1.13.10 ity of [facility] 4.2.7.2.686 [place]wayne as MATERNAL [phone] [facility] & CHILD [address] [place] [address] 2019-06-23 2019-06-23 Outpatient [facility] [id number] Univers 15:30:00 15:30:00 ALMA garciay o f [facility] 2019-06-22 2019-06-22 Outpatient R JORGE [facility] [id number] Univers 13:30:00 13:30:00 [facility] 2019-06-22 2019-06-22 Telephone Visit, [facility] 1.2.534.444 [id number] Univers 00:00:00 00:00:00 Gurvindersarbjit ENVIRONMENTAL SYSTEMS COORDINATOR 350.1.13.10 ity of Nurse [facility] 4.2.7.2.686 [place]wayne as MATERNAL [phone] [facility] & CHILD [address] [place] [address] 2019-06-22 2019-06-22 Refill Doctor [facility] 1.2.840.114 [id number] Univers 00:00:00 00:00:00 Unassigned, ENVIRONMENTAL SYSTEMS COORDINATOR 350.1.13.10 ity of [place] [facility] 4.2.7.2.686 Dwayne as MATERNAL [phone] [facility] & CHILD [address] [place] [address] 2019-06-21 2019-06-21 Ocean [facility] Lab, Ember [facility] 1.2.840. 114 [id number] Univers 13:00:32 13:15:32 Visit Irma Alma Estevez ENVIRONMENTAL SYSTEMS COORDINATOR 350.1.13. 10 ity of [facility] 4.2.7.2.686 [place] as MATERNAL [phone] Med ical & CHILD [address] [place] [address] 2019-06-21 2019-06-21 Outpatient [facility] [id number] Univers 10:30:00 10:30:00 ALMA pierce [facility] 2019-06-21 2019-06-21 Telephone [facility] 1.2.840.114 [id number] Univers 00:00:00 00:00:00 Abena N ENVIRONMENTAL SYSTEMS COORDINATOR 350.1.13.10 it y of [facility] 4.2.7.2.686 [place] as MATERNAL [phone] Med ical & CHILD [address] [place] [address] 2019-06-20 2019-06-20 Telephone [facility] 1.2.840.114 [id number] Univers 00:00:00 00:00:00 Abena N ENVIRONMENTAL SYSTEMS COORDINATOR 350.1.13.10 it y of [facility] 4.2.7.2.686 [place]way[place] as MATERNAL [phone] Med ical & CHILD [address] [place] [address] 2019-06-10 2019-06-10 Telephone [facility] 1.2.840.114 [id number] Univers 00:00:00 00:00:00 Abena N ENVIRONMENTAL SYSTEMS COORDINATOR 350.1.13.10 it y of [facility] 4.2.7.2.686 [place] as MATERNAL [phone] [facility] ical & CHILD [address] [place] [address] 2019-05-20 2019-05-20 Telephone [facility] 1.2.840.114 [id number] Univers 00:00:00 00:00:00 Abena N ENVIRONMENTAL SYSTEMS COORDINATOR 350.1.13.10 it y of [facility] 4.2.7.2.686 [place] as MATERNAL [phone] Med ical & CHILD [address] [place] [address] 2019-05-19 2019-05-19 Telephone [facility] 1.2.840.114 [id number] Univers 00:00:00 00:00:00 Abena N ENVIRONMENTAL SYSTEMS COORDINATOR 350.1.13.10 it y of [facility]ION[facility] 4.2.7.2.686 [place] as MATERNAL [phone] [facility] ical & CHILD [address] [place] [address] 2019-05-17 2019-05-17 Office [facility] [id number] Univers 13:24:09 13:50:08 Visit Abena Rabia ENVIRONMENTAL SYSTEMS COORDINATOR 350.1.13.10 it y of [facility] 4.2.7.2.686 Dwayne as MATERNAL [phone] [facility] & CHILD [address] [place] [address] 2019-05-17 2019-05-17 [facility] [id number] Univers 13:30:00 13:30:00 ABENA cassius [facility] 2019-05-06 2019-05-06 Outpatient R GIANNA [facility] [id number] Univers 08:15:00 08:15:00 TREVER hammonds o f [facility] 2019-04-20 2019-04-20 Emergency [place] [facility] 1.2.840.114 [id number] Univers 11:02:10 14:18:00 Yulia [place] 350.1.13.10 i ty [facility] 4.2.7.2.686 [place] [facility] [phone] [facility] [address] [place] [address] 2019-03-29 2019-03-29 Telephone [facility] 1.2.578.910 [id number] Univers 00:00:00 00:00:00 Nimaa R ENVIRONMENTAL SYSTEMS COORDINATOR 350.1.13.10 ity of [facility] 4.2.7.2.686 Dwayne as MATERNAL [phone] [facility] & CHILD [address] [place] [address] 2019-03-22 2019-03-22 Telephone [facility] 1.2.620.200 [id number] Univers 00:00:00 00:00:00 Edwardnda R ENVIRONMENTAL SYSTEMS COORDINATOR 350.1.13.10 ity of [facility] 4.2.7.2.686 Dwayne as MATERNAL [phone] [facility] & CHILD [address] [place] [address] 2019-03-21 2019-03-21 Office [facility] 1.2.840.114 [id number] Univers 15:39:38 16:25:05 Visit Trever R ENVIRONMENTAL SYSTEMS COORDINATOR 350.1.13.10 ity [facility] 4.2.7.2.686 Dwayne as MATERNAL [phone] [facility] ical & CHILD [address] [place] [address] Results Test Description Test Time Test Comments Results Result Comments Source UA RFLX MICR CULT IF INDICATED 2022-10-16 21:28:00 Test Item Value Reference Range Interpretation Comme nts UA COLOR (test code = COLU) YELLOW YELLOW UA APPEARANCE (test code = HAZY CLEAR APPU) UA GLUCOSE DIPSTICK (test NEGATIVE NEGATIVE code = DGLUU) UA BILIRUBIN DIPSTICK (test NEGATIVE NEGATIVE code = BILU) UA KETONE DIPSTICK (test code NEGATIVE NEGATIVE = KETU) UA SPECIFIC GRAVITY (test 1.020 1.001-1.035 N code = SGU) UA BLOOD DIPSTICK (test code NEG NEGATIVE = JORGE) UA PH DIPSTICK (test code = 6.0 5-9 PARISH) UA PROTEIN DIPSTICK (test NEGATIVE NEGATIVE code = PROU) UA UROBILINIOGEN DIPSTICK 0.2 EU/dL See_Comment [ Automated message] The (test code = URO) system [facility] generated this result transmit con reference range : <=1.0. The reference range was not used to interpr et this result as shyam l/abnormal. UA NITRITE DIPSTICK (test NEGATIVE NEGATIVE code = PONCHO) UA LEUKOCYTE ESTERASE TRACE NEGATIVE A DIPSTICK (test code = LEUU) UA WBC (test code = WBCU) 6-10 #/hpf NONE SEEN A UA RBC (test code = RBCU) 0-2 #/hpf NONE SEEN UA EPITHELIAL CELLS (test MODERATE #/HPF RARE-FEW A code = EPIU) UA BACTERIA (test code = RARE /HPF RARE-FEW BACU) UA MUCUS (test code = MUCU) 1+ NONE SEEN UA AMORPHOUS SEDIMENT (test RARE code = AMORU) Indication for culture: Suprapubic PainSpecimen Description: CLEAN CATCHCBC W/AUTO [id number] 21:13:00 Test Item Value Reference Range Interpretation Comments WHITE BLOOD CELL (test code = WBC) 10.0 K/mm3 6.5-12.3 N RED BLOOD CELL (test code = RBC) 3.90 M/mm3 3.51-4.69 N HEMOGLOBIN (test code = HGB) 11.3 g/dL 10.1-13.8 N HEMATOCRIT (test code = HCT) 33.2 % 32.5-41.8 N MEAN CELL VOLUME (test code = MCV) 85.1 fL 84.6-96.6 N MEAN CELL HGB (test code = MCH) 29.0 pg 27.3-33.9 N MEAN CELL HGB CONCETRATION (test 34.0 gm/dL 32.0-34.2 N code = MCHC) RED CELL DISTRIBUTION WIDTH (test 13.2 % 12.2-16.3 N code = RDW) PLATELET COUNT (test code = PLT) 232 K/mm3 134-363 N IMMATURE PLATELET FRACTION (test 2.1 % 0.0-10.8 N code = IPF) MEAN PLATELET VOLUME (test code = 10.5 fL 9.2-12.7 N MPV) NEUTROPHIL % (test code = NT%) 63.6 % 57.9-77.3 N LYMPHOCYTE % (test code = LY%) 28.5 % 14.5-29.7 N MONOCYTE % (test code = MO%) 5.3 % 3.6-10.2 N EOSINOPHIL % (test code = EO%) 1.2 % 0.0-3.0 N BASOPHIL % (test code = BA%) 0.4 % 0.1-0.9 N NEUTROPHIL # (test code = NT#) 6.3 K/mm3 LYMPHOCYTE # (test code = LY#) 2.8 K/mm3 MONOCYTE # (test code = MO#) 0.5 K/mm3 EOSINOPHIL # (test code = EO#) 0.12 K/mm3 BASOPHIL # (test code = BA#) 0.0 K/mm3 RBC MORPHOLOGY REQUIRED (test code NORMAL NORMAL = RBCM) PLATELET MORPHOLOGY REQUIRED (test NORMAL NORMAL code = PLTMR) COMPREHENSIVE METABOLIC [id number] 21:04:00 Test Item Value Reference Range Interpretation Comments SODIUM (test code = 140 mEq/L 135-145 N NA) POTASSIUM (test code 3.1 mEq/L 3.5-5.0 L = K) CHLORIDE (test code 106 mEq/L 100-115 N = CL) CARBON DIOXIDE (test 24 mEq/L 22-31 N code = CO2) ANION GAP (test code 13.60 10-20 N = GAP) GLUCOSE (test code = 86 mg/dL 65-110 N GLU) BLOOD UREA NITROGEN 5 mg/dL 7-18 L (test code = BUN) CREATININE (test 0.5 mg/dL 0.5-1.0 N code = CREAT) TOTAL PROTEIN (test 6.3 gm/dL 6.3-8.2 N code = PROT) ALBUMIN (test code = 2.9 gm/dL 3.4-4.8 L ALB) CALCIUM (test code = 9.1 mg/dL 8.4-10.2 N CA) BILIRUBIN TOTAL 0.2 mg/dL 0.2-1.0 N (test code = BILT) SGOT/AST (test code 13 units/L 15-37 L = AST) SGPT/ALT (test code 12 units/L 12-78 N = ALT) ALKALINE PHOSPHATASE 86 units/L 46-116 N TOTAL (test code = ALKP) GLOMERULAR 133 ml/min >60 N The Glomerular FILTRATION RATE Filtration R ate is a (test code = GFR) calculated parameterbased on serum Creatinine, pat ient age and sex. GFR va luesless than 60 mL/min/ 1.73 square meters a re indicative ofCh ronic Kidney Disease. Values less than 15 mL/min/1.73squa re meters indicate Kidney failure. The calculation for GFR is based on the CK D-EPI (2020) calculat ion. This formulais race indifferent and is the recommended for hollie for GFRby the Natio nal Kidney Foundati on for Adults.The GFR will not calculate if th e sex is unknown or if thepatient's ag e is <18 years. COVID 19 Asymptomatic IH [id number] 20:56:00 Test Item Value Reference Range Interpretation Comments COVID 19 NEGATIVE NEGATIVE This test has b een Asymptomatic IH AG authorize d only for the (test code = detection ofpro teins from COVNONPUIAG) SARS-CoV-2, not for any other viruses orpathogens. Ne gative results should be treated as presumptive andconfirmed wi th a molecular assay , if necessary for patientmanageme nt. Negative result s do not rule out COVID- 19 andshould not b e used as the sole basis for treatment orpat ient management deci sions, including infec tion controldecision s. Negative result s should be considered i n thecontext of a patient's recent exposure s, history and thepresence of clinical signs and symptoms consis tent withCOVID-19. T his test has not been FD A cleared or approved; th e test hasbeen authorsal dorantes by FDA under an Emerge ncy Use Authorization(E UA) for use by laborato guru certified under the CLIA thatmeet the re quirements to perform mode rate, high or waivedcomple xity tests. This freddie t is authorized for use at thePoint of Car e (POC), i.e., in patien t care settingsoperati ng under a CLIA Certificat e of Waiver, Certifi britney ofCompliance, o r Certificate of Accreditation. This test is only authori jose e for the duration of thedeclaration that circumstances e xist justifying theauthorizatio n of emergency use o f in vitro diagnostic test sfor detection and/o r diagnosis of CO VID-19 under [id number] 4(b)(1) of the Act, 21 U.S .C. 360bbb-3(b)(1), unless theauthorizatio n is terminated or r evoked sooner. D-DIMER [id number] 20:43:00 Test Item Value Reference Range Interpretation Comments D-DIMER QUANT 335 ng/mLFEU <519 PLEASE NOTE NE W REFERENCE (test code = RANGE AND UNITS August 2022 DDIMER) D-Dimer results are reported in ng/ mL. These unitscorrespond to ng/mL Fibrinogen Equi valent Units (FEU). eD-Dimer cut-off value i s the same as the normal referencerange. A negative D-Dime r result when combined w ith aclinical asses sment of low pretest pro bability has beenshown t o have a high negative p redictive value for deep veinthrombosis (DVT) and pulmonary embol ism (PE). Elevatedlevels of D-Dimer are found in cl inical conditions such asDVT, PE and disseminate d intravascular c oagulation (DIC).D-Dimer l evels also rise during nor mal but v eryhigh levels are asso ciated with complicati ons. POCT URINALYSIS W SPECIFIC [id number] 14:09:00 Test Item Value Reference Range Interpretation Comments [...] . [facility] URINALYSIS W SPECIFIC [id number] 20:42:00 Test Item Value Reference Range Interpretation Comments [...] . [facility] URINALYSIS W SPECIFIC [id number] 20:46:00 Test Item Value Reference Range Interpretation Comments [...] U APPEAR (test code = 3267) . [facility] METABOLIC PANEL (NA, K, CL, CO2, GLUCOSE, BUN, CREATININE, CA)2022-07-15 20:01:56 Test Item Value Reference Range Interpretation Comments NA (test code = 137 mmol/L 135-145 8093230251) K (test code = 4.1 mmol/L 3.5-5.0 5324925338) CL (test code = 104 mmol/L 98-108 2568532959) CO2 TOTAL (test code = 21 mmol/L 23-31 L 0777603098) AGAP (test code = 12 2-16 9892184543) BUN (test code = 4 mg/dL 7-23 L 6752970121) GLUCOSE (test code = 84 mg/dL 70-110 8795001797) CREATININE (test code = 0.43 mg/dL 0.50-1.04 L 0750542152) CALCIUM (test code = 9.4 mg/dL 8.6-10.6 1786825695) eGFR (test code = 178.9 mL/min/1.73m2 7771317848) MARCELLE (test code = MARCELLE) Association of [...] tests). Lab Interpretation Abnormal (test code = 33313-7) [facility] WITH [id number] 19:50:53 Test Item Value Reference Range Interpretation Comments WBC (test code = 9.07 See_Comment [Automated 0044-2) message] The sy stem which generated this result transmitted reference range : 4.30 - 11.10 10*3/?L. The reference range was not used to interpret this result as normal/abnormal . RBC (test code = 4.88 See_Comment [Automated 105-8) message] The sy stem which generated this [...] RDW-SD (test code = 43.8 fL 39.0-49.9 65973-2) RDW-CV (test code = 14.8 % 12.0-15.5 788-0) PLT (test code = 302 See_Comment [Automated 777-3) message] The sy stem which generated this result transmitted reference range : 166 - 358 10*3/ ?L. The reference r david was not used to interpret this result as normal/abnormal . MPV (test code = 9.7 fL 9.5-12.9 96115-8) NRBC/100 WBC (test 0.0 See_Comment [Automat ed code = 0955599667) message] The system which generated this result transmitted reference range : 0.0 - 10.0 /100 WBCs. The refer ence range was not u sed to interpret th is result as normal/abnormal . NRBC x10^3 (test code See_Comment [Auto mated = 9403219562) message] The s ystem which generated this result transmitted reference range : 10*3/?L. The reference range was not used to interpret this result as normal/abnormal . GRAN MAT (NEUT) % 62.8 % (test code = 770-8) IMM GRAN % (test code 1.00 % = 9530862710) LYMPH % (test code = 28.6 % 736-9) MONO % (test code = 6.2 % 5905-5) EOS % (test code = 1.2 % 713-8) BASO % (test code = 0.2 % 706-2) GRAN MAT x10^3(ANC) 5.70 10*3/uL 1.88-7.09 (test code = 0965358518) IMM GRAN x10^3 (test 0.09 10*3/uL 0.00-0.06 H code = 2161319475) LYMPH x10^3 (test code 2.59 10*3/uL 1.32-3.29 = 731-0) MONO x10^3 (test code 0.56 10*3/uL 0.33-0.92 = 742-7) EOS x10^3 (test code = 0.11 10*3/uL 0.03-0.39 711-2) BASO x10^3 (test code 0.01-0.07 = 704-7) Lab Interpretation Abnormal (test code = 38044-4) [facility] URINALYSIS W SPECIFIC [id number] 20:59:00 Test Item Value Reference Range Interpretation [...] 3267) [facility] URINALYSIS W SPECIFIC [id number] 20:59:00 Test Item Value Reference Range Interpretation [...] 3267) [facility] URINALYSIS W SPECIFIC [id number] 20:59:00 Test Item Value Reference Range Interpretation [...] code = 3267) [facility] URINALYSIS W/O SPECIFIC [id number] 19:18:00 Test Item Value Reference Range Interpretation [...] code = 3257) NEG Negative - Negative [facility] [id number] 19:17:00 Test Item Value Reference Range Interpretation Comments POCT PREG (test code = 1605) Positive On board controls acceptable with C Yes Line (test code = 3574) POCT PREG LOT # (test code = 3575) POCT PREG TEST DATE (test code = 3576) [facility] [id number] 05:04:00 Test Item Value Reference Range Interpretation Comments POCT PREG (test code = 1605) negative On board controls acceptable with present C Line (test code = 3574) POCT PREG LOT # (test code = 3575) [id number] POCT PREG TEST DATE (test 2023-08-07 code = 3576) Lab Interpretation (test code = Normal 67216-3) [facility]. METABOLIC PANEL ([id number])2022-04-22 04:55:23 Test Item Value Reference Range Interpretation Comments NA (test code = 135 mmol/L 135-145 7620871748) K (test code = 4.0 mmol/L 3.5-5.0 8616178892) CL (test code = 105 mmol/L 98-108 9211651926) CO2 TOTAL (test code = 24 mmol/L 23-31 8544884141) AGAP (test code = 6 2-16 1501077517) BUN (test code = 12 mg/dL 7-23 1256828238) GLUCOSE (test code = 117 mg/dL 70-110 H 0023101070) CREATININE (test code = 0.50 mg/dL 0.50-1.04 9126036981) TOTAL BILI (test code = 0.5 mg/dL 0.1-1.5 3493257287) CALCIUM (test code = 8.6 mg/dL 8.6-10.6 0696951161) T PROTEIN (test code = 6.3 g/dL 6.3-8.2 3345641330) ALBUMIN (test code = 4.0 g/dL 3.5-5.0 1453296433) ALK PHOS (test code = 71 U/L 34-122 3233392782) ALTv (test code = 25 U/L 5-35 1742-6) AST(SGOT) (test code = 30 U/L 13-40 2684187207) eGFR (test code = 150.3 mL/min/1.73m2 1596960960) MARCELLE (test code = MARCELLE) Association of [...] tests). Lab Interpretation Abnormal (test code = 24002-1) [facility] WITH [id number] 04:43:57 Test Item Value Reference Range Interpretation Comments WBC (test code = 8.83 See_Comment [Automated 6137-2) message] The sy stem which generated this result transmitted reference range : 4.30 - 11.10 10*3/?L. The reference range was not used to interpret this result as normal/abnormal . RBC (test code = 4.30 See_Comment [Automated 159-8) message] The sy stem which generated this [...] RDW-SD (test code = 44.5 fL 39.0-49.9 04063-6) RDW-CV (test code = 15.0 % 12.0-15.5 788-0) PLT (test code = 270 See_Comment [Automated 697-3) message] The sy stem which generated this result transmitted reference range : 166 - 358 10*3/ ?L. The reference r david was not used to interpret this result as normal/abnormal . MPV (test code = 10.5 fL 9.5-12.9 99833-5) NRBC/100 WBC (test 0.0 See_Comment [Automat ed code = 6860616377) message] The system which generated this result transmitted reference range : 0.0 - 10.0 /100 WBCs. The refer ence range was not u sed to interpret th is result as normal/abnormal . NRBC x10^3 (test code See_Comment [Auto mated = 1606097885) message] The s ystem which generated this result transmitted reference range : 10*3/?L. The reference range was not used to interpret this result as normal/abnormal . GRAN MAT (NEUT) % 54.9 % (test code = 770-8) IMM GRAN % (test code 0.60 % = 7348920332) LYMPH % (test code = 35.8 % 736-9) MONO % (test code = 6.5 % 5905-5) EOS % (test code = 1.7 % 713-8) BASO % (test code = 0.5 % 706-2) GRAN MAT x10^3(ANC) 4.86 10*3/uL 1.88-7.09 (test code = 0056103156) IMM GRAN x10^3 (test 0.05 10*3/uL 0.00-0.06 code = 6676957231) LYMPH x10^3 (test code 3.16 10*3/uL 1.32-3.29 = 731-0) MONO x10^3 (test code 0.57 10*3/uL 0.33-0.92 = 742-7) EOS x10^3 (test code = 0.15 10*3/uL 0.03-0.39 711-2) BASO x10^3 (test code 0.04 10*3/uL 0.01-0.07 = 704-7) Lab Interpretation Abnormal (test code = 96025-4) [facility] - [facility] [id number] 20:36:00 Test Item Value Reference Range Interpretation Comments ABO & RH (test code O Negative Performe d at [facility] = 20) Laboratory Serv [facility] [place] [phone] Free: [phone] A No. [id number] IAT (test code = Positive Performed a t [facility] 1185) Laboratory Serv [facility] [place] [address]Ayxo Free: [phone] A No. [id number] [facility]wood[facility]IUM2022-12-11 19:33:27 Test Item Value Reference Range Interpretation Comments MAGNESIUM (test code = 4749411161) 2.0 mg/dL 1.7-2.4 Lab Interpretation (test code = Normal 84040-0) [facility]wood[facility] [id number] 19:16:05 Test Item Value Reference Interpretation Comments Range TROPONIN I (test 0.001 ng/mL See_Comment [Automated code = 0489077131) message] The system which generated this result [...] biotin. Lab Interpretation Normal (test code = 03761-8) [facility]wood[facility]-TERMINAL [id number] 19:13:04 Test Item Value Reference Range Interpretation Comments NT-proBNP (test code 189 pg/mL See_Comment H [Autom ated = 1892009591) message] The system which generated this result transmitted reference range : <=125. The reference range was not used to interpret this result as normal/abnormal . MARCELLE (test code = MARCELLE) Biotin has been reported to cause a negative bias, interpret results relative to patient's use of biotin. Lab Interpretation Abnormal (test code = 65710-6) [facility]. METABOLIC PANEL ([id number])2022-02-16 19:04:06 Test Item Value Reference Range Interpretation Comments NA (test code = 139 mmol/L 135-145 3015536012) K (test code = 4.0 mmol/L 3.5-5.0 3350947827) CL (test code = 110 mmol/L 98-108 H 2120365272) CO2 TOTAL (test code = 24 mmol/L 23-31 6513904684) AGAP (test code = 2-16 5383896231) BUN (test code = 10 mg/dL 7-23 8754517331) GLUCOSE (test code = 78 mg/dL 70-110 9256307858) CREATININE (test code = 0.49 mg/dL 0.50-1.04 L 5890374262) TOTAL BILI (test code = 0.3 mg/dL 0.1-1.7 0050870539) CALCIUM (test code = 8.7 mg/dL 8.6-10.6 2937342052) T PROTEIN (test code = 5.5 g/dL 6.3-8.2 L 9196472890) ALBUMIN (test code = 3.2 g/dL 3.5-5.0 L 8017663005) ALK PHOS (test code = 126 U/L 34-122 H 6416699377) ALTv (test code = 21 U/L 5-35 1742-6) AST(SGOT) (test code = 30 U/L 13-40 7960735148) eGFR (test code = mL/min/1.73m2 1081051885) MARCELLE (test code = MARCELLE) Association of [...] tests). Lab Interpretation Abnormal (test code = 75131-9) [facility]woodACTIV[facility] PARTIAL THRMPLAS [id number] 19:03:06 Test Item Value Reference Range Interpretation Comments APTT Patient (test See_Comment [Automat ed code = 3173-2) message] The system which generated this result transmitted reference range : 23 - 38 Seconds . The reference range was not used to interpr et this result as normal/abnormal . MARCELLE (test code = MARCELLE) The [facility] patient population mean normal value for aPTT is 30 seconds. Lab Interpretation Normal (test code = 54792-3) [facility]woodPROTHROMBIN TIME / [id number] 19:01:04 Test Item Value Reference Range Interpretation [...] tions. Lab Interpretation (test Normal code = 63882-4) [facility]wood[facility] WITH [id number] 18:49:05 Test Item Value Reference Range Interpretation [...] RDW-SD (test code = 45.1 fL 39.0-49.9 19203-9) RDW-CV (test code = 14.1 % 12.0-15.5 788-0) PLT (test code = See_Comment [Automated 777-3) message] The sy stem which generated this result transmitted reference range : 166 - 358 10*3/ ?L. The reference r david was not used to interpret this result as normal/abnormal . MPV (test code = 10.4 fL 9.5-12.9 85347-2) NRBC/100 WBC (test See_Comment [Automat ed code = 3773027439) message] The system which generated this result transmitted reference range : 0.0 - 10.0 /100 WBCs. The refer ence range was not u sed to interpret th is result as normal/abnormal . NRBC x10^3 (test code See_Comment [Auto mated = 3361039720) message] The s ystem which generated this result transmitted reference range : 10*3/?L. The reference range was not used to interpret this result as normal/abnormal . GRAN MAT (NEUT) % 72.7 % (test code = 770-8) IMM GRAN % (test code 1.30 % = 6459631957) LYMPH % (test code = 16.8 % 736-9) MONO % (test code = 6.7 % 5905-5) EOS % (test code = 2.3 % 713-8) BASO % (test code = 0.2 % 706-2) GRAN MAT x10^3(ANC) 6.67 10*3/uL 1.88-7.09 (test code = 7353481559) IMM GRAN x10^3 (test 0.12 10*3/uL 0.00-0.06 H code = 7039714176) LYMPH x10^3 (test code 1.54 10*3/uL 1.32-3.29 = 731-0) MONO x10^3 (test code 0.61 10*3/uL 0.33-0.92 = 742-7) EOS x10^3 (test code = 0.21 10*3/uL 0.03-0.39 711-2) BASO x10^3 (test code 0.01-0.07 = 704-7) Lab Interpretation Abnormal (test code = 80911-8) [facility]woodFETAL MATERNAL HEMO [id number] 12:29:12 Test Item Value Reference Range Interpretation Comments SCREEN (test Negative Performed at [facility] code = 846) Laboratory Serv [facility] Blood [address] [place], [place] [address]Dcrn Free: [phone] A No. [id number] RHIG REQUIRED? 1 Syringe baby rh posPe rformed at (test code = 1747) [facility] Blood Ban [address] [facility] s [address]Ioyx Free: [phone] A No. [id number] [facility] KingwoodRHO (D) IMMUNE [id number] 19:43:42 Test Item Value Reference Range Interpretation Comments RHIG CANDIDATE? (test Yes- see A Patien t is a code = 5055) comment candidate for RhIg- Patient i s Rh Negative and baby is Rh Positive.Perfor me d at [facility] Laboratory Services [facility] Blood [address] [facility] s [address]Uddq Free: [phone] A No. [id number] Lab Interpretation Abnormal (test code = 73289-2) [facility]woodARTERIAL CORD [id number] 17:18:47 Test Item Value Reference Range Interpretation Comments BASE EXCESS, CORD mEq/L QUES (test code = 3790830912) AC PH, CORD (BEAKER) 7.18-7.38 (test code = 3557316274) PC02, CORD (test code See_Comment [Auto mated message] The = 1159325628) system which g enerated this result transmit con reference range : 32 - 66 mmHg. The refer ence range was not used to interpret this result as normal/abnormal . PO2, CORD (test code See_Comment [Autom ated message] The = 5941485382) system which g enerated this result transmit con reference range : 10 - 30 mmHg. The refer ence range was not used to interpret this result as normal/abnormal . BICARBONATE, CORD See_Comment [Automate d message] The (test code = system which ge nerated this 9338339836) result transmit con reference range : 17 - 27 mEq/L. The refe rence range was not used to interpret this result as normal/abnormal . [facility] CORD [id number] 17:17:10 Test Item Value Reference Range Interpretation Comments VENOUS BASE EXCESS, mEq/L CORD (test code = 3344304234) VENOUS PH, CORD (test 7.25-7.45 code = 7489589678) VENOUS PC02, CORD See_Comment [Automate d message] The (test code = system which ge nerated 2757519072) this result tra nsmitted reference range : 27 - 49 mmHg. The refer ence range was not used to interpret this result as normal/abnormal . VENOUS PO2, CORD (test See_Comment [Aut omated message] The code = 7559586255) system wh ich generated this result tra nsmitted reference range : 17 - 41 mmHg. The refer ence range was not used to interpret this result as normal/abnormal . VENOUS BICARBONATE, See_Comment QUES [Au tomated message] CORD (test code = The system which generated 4843440751) this result tra nsmitted reference range : 12 - 29 mEq/L. The refe rence range was not used to interpret this result as normal/abnormal . [facility] ONLY - SYPHILIS [id number] 17:00:56 Test Item Value Reference Range Interpretation Comments Syphilis IgG/IgM (test Non-reactive Non-reactive code = 92929-7) MARCELLE (test code = MARCELLE) Non-reactive - No serologic evidence of T. pallidum infection. Cannot exclude incubating or early syphilis. Submit a second specimen in 2-4 weeks if syphilis is clinically suspected. Equivocal - Further testing to follow. Reactive - Further testing to follow. Lab Interpretation (test Normal code = 79290-6) [facility]woodHIV 1/2 AG-AB WITH [id number] 02:53:04 Test Item Value Reference Range Interpretation Comments HIV Negative Negative Semi-quantitative (test code = 76534-5) MARCELLE (test code = Non-reactive for HIV-1 MARCELLE) antigen and HIV-1/HIV-2 antibodies. ?No laboratory evidence of HIV infection. ?Repeat in 2-4 weeks if acute HIV infection is suspected. [facility]wood[facility] and Screen - ONCE [id number] 01:21:03 Test Item Value Reference Range Interpretation Comments ABO & RH (test code O NEGATIVE Performe d at [facility] = 20) Laboratory Serv [facility]3 [address] [facility] [address]Dghb Free: [phone] A No. [id number] IAT (test code = Positive Performed a t [facility] 1185) Laboratory Serv [facility]3 [address] [facility] s [address]Rwjz Free: [phone] A No. [id number] [facility]woodANTI-D R/O [id number] 01:21:03 Test Item Value Reference Range Interpretation Comments ANTIBODY (test Anti-D Probable RHIG given on code = 683) RhIg 01/02/22Perform ed at [facility] Laborat ory Services [facility] Blood [address] [facility] s [address]Yacp Free: [phone] A No. [id number] [facility] KingwoodHepatitis B Surface [id number] 00:41:53 Test Item Value Reference Range Interpretation Comments HBsAg Semi-Quantitative (test code = Negative Negative 5195-3) [facility] KingwoodCBC with [id number] 23:41:21 Test Item Value Reference Range Interpretation [...] RDW-SD (test code = 43.6 fL 39.0-49.9 86350-2) RDW-CV (test code = 14.1 % 12.0-15.5 788-0) PLT (test code = See_Comment [Automated 777-3) message] The sy stem which generated this result transmitted reference range : 166 - 358 10*3/ ?L. The reference r david was not used to interpret this result as normal/abnormal . MPV (test code = 10.8 fL 9.5-12.9 92913-5) NRBC/100 WBC (test See_Comment [Automat ed code = 0126366079) message] The system which generated this result transmitted reference range : 0.0 - 10.0 /100 WBCs. The refer ence range was not u sed to interpret th is result as normal/abnormal . NRBC x10^3 (test code See_Comment [Auto mated = 3926544633) message] The s ystem which generated this result transmitted reference range : 10*3/?L. The reference range was not used to interpret this result as normal/abnormal . GRAN MAT (NEUT) % 64.7 % (test code = 770-8) IMM GRAN % (test code 1.20 % = 5137323772) LYMPH % (test code = 25.1 % 736-9) MONO % (test code = 7.4 % 5905-5) EOS % (test code = 1.3 % 713-8) BASO % (test code = 0.3 % 706-2) GRAN MAT x10^3(ANC) 6.10 10*3/uL 1.88-7.09 (test code = 5388358882) IMM GRAN x10^3 (test 0.11 10*3/uL 0.00-0.06 H code = 1125315359) LYMPH x10^3 (test code 2.36 10*3/uL 1.32-3.29 = 731-0) MONO x10^3 (test code 0.70 10*3/uL 0.33-0.92 = 742-7) EOS x10^3 (test code = 0.12 10*3/uL 0.03-0.39 711-2) BASO x10^3 (test code 0.03 10*3/uL 0.01-0.07 = 704-7) Lab Interpretation Abnormal (test code = 89603-9) [facility] URINALYSIS W SPECIFIC [id number] 20:06:00 Test Item Value Reference Range Interpretation [...] 3267) [facility] URINALYSIS W SPECIFIC [id number] 22:20:00 Test Item Value Reference Range Interpretation [...] code = 3267) . [facility]woodType and Screen - ONCE [id number] 23:17:31 Test Item Value Reference Range Interpretation Comments ABO & RH (test code O Negative Performe d at [facility] = 20) Laboratory Serv [facility] [address] [place], [place] [address]Toll Free: [phone] A No. [id number] IAT (test code = Positive Performed a t [facility] 1185) Laboratory Serv [facility] [address] [place], [place] [address]Toll Free: [phone] A No. [id number] [facility]woodCBC WITH [id number] 05:45:31 Test Item Value Reference Range Interpretation Comments WBC (test code = See_Comment [Automated 1822-2) message] The sy stem which generated this result transmitted reference range : 4.30 - 11.10 10*3/?L. The reference range was not used to interpret this result as normal/abnormal . RBC (test code = See_Comment [Automated 316-8) message] The sy stem which generated this [...] RDW-SD (test code = 43.4 fL 39.0-49.9 52456-2) RDW-CV (test code = 13.9 % 12.0-15.5 788-0) PLT (test code = See_Comment [Automated 777-3) message] The sy stem which generated this result transmitted reference range : 166 - 358 10*3/ ?L. The reference r david was not used to interpret this result as normal/abnormal . MPV (test code = 11.2 fL 9.5-12.9 20136-9) NRBC/100 WBC (test See_Comment [Automat ed code = 6264160791) message] The system which generated this result transmitted reference range : 0.0 - 10.0 /100 WBCs. The refer ence range was not u sed to interpret th is result as normal/abnormal . NRBC x10^3 (test code See_Comment [Auto mated = 5679602764) message] The s ystem which generated this result transmitted reference range : 10*3/?L. The reference range was not used to interpret this result as normal/abnormal . GRAN MAT (NEUT) % 67.3 % (test code = 770-8) IMM GRAN % (test code 1.00 % = 9441972705) LYMPH % (test code = 23.3 % 736-9) MONO % (test code = 7.1 % 5905-5) EOS % (test code = 1.0 % 713-8) BASO % (test code = 0.3 % 706-2) GRAN MAT x10^3(ANC) 5.85 10*3/uL 1.88-7.09 (test code = 1304898079) IMM GRAN x10^3 (test 0.09 10*3/uL 0.00-0.06 H code = 6864866887) LYMPH x10^3 (test code 2.03 10*3/uL 1.32-3.29 = 731-0) MONO x10^3 (test code 0.62 10*3/uL 0.33-0.92 = 742-7) EOS x10^3 (test code = 0.09 10*3/uL 0.03-0.39 711-2) BASO x10^3 (test code 0.03 10*3/uL 0.01-0.07 = 704-7) Lab Interpretation Abnormal (test code = 05260-1) [facility] WITH [id number] 05:45:31 Test Item Value Reference Range Interpretation Comments WBC (test code = See_Comment [Automated 4090-2) message] The sy stem which generated this result transmitted reference range : 4.30 - 11.10 10*3/?L. The reference range was not used to interpret this result as normal/abnormal . RBC (test code = See_Comment [Automated 819-8) message] The sy stem which generated this [...] RDW-SD (test code = 43.4 fL 39.0-49.9 32707-0) RDW-CV (test code = 13.9 % 12.0-15.5 788-0) PLT (test code = See_Comment [Automated 367-3) message] The sy stem which generated this result transmitted reference range : 166 - 358 10*3/ ?L. The reference r david was not used to interpret this result as normal/abnormal . MPV (test code = 11.2 fL 9.5-12.9 84317-5) NRBC/100 WBC (test See_Comment [Automat ed code = 2353871709) message] The system which generated this result transmitted reference range : 0.0 - 10.0 /100 WBCs. The refer ence range was not u sed to interpret th is result as normal/abnormal . NRBC x10^3 (test code See_Comment [Auto mated = 0490284735) message] The s ystem which generated this result transmitted reference range : 10*3/?L. The reference range was not used to interpret this result as normal/abnormal . GRAN MAT (NEUT) % 67.3 % (test code = 770-8) IMM GRAN % (test code 1.00 % = 0099109357) LYMPH % (test code = 23.3 % 736-9) MONO % (test code = 7.1 % 5905-5) EOS % (test code = 1.0 % 713-8) BASO % (test code = 0.3 % 706-2) GRAN MAT x10^3(ANC) 5.85 10*3/uL 1.88-7.09 (test code = 3026217709) IMM GRAN x10^3 (test 0.09 10*3/uL 0.00-0.06 H code = 8210482118) LYMPH x10^3 (test code 2.03 10*3/uL 1.32-3.29 = 731-0) MONO x10^3 (test code 0.62 10*3/uL 0.33-0.92 = 742-7) EOS x10^3 (test code = 0.09 10*3/uL 0.03-0.39 711-2) BASO x10^3 (test code 0.03 10*3/uL 0.01-0.07 = 704-7) Lab Interpretation Abnormal (test code = 18277-3) [facility] URINALYSIS W SPECIFIC [id number] 20:37:00 Test Item Value Reference Range Interpretation [...] clear [facility] URINALYSIS W SPECIFIC [id number] 20:37:00 Test Item Value Reference Range Interpretation [...] U APPEAR (test code = 3267) [facility] [id number] 20:37:00 Test Item Value Reference Range Interpretation [...] clear [facility] URINALYSIS W SPECIFIC [id number] 19:00:00 Test Item Value Reference Range Interpretation [...] . [facility] URINALYSIS W SPECIFIC [id number] 21:06:00 Test Item Value Reference Range Interpretation [...] clear [facility] URINALYSIS W SPECIFIC [id number] 16:34:00 Test Item Value Reference Range Interpretation [...] clear [facility] URINALYSIS W SPECIFIC [id number] 17:00:00 Test Item Value Reference Range Interpretation [...] cloudy [facility] URINALYSIS W SPECIFIC [id number] 18:51:00 Test Item Value Reference Range Interpretation [...] 3267) Lab Interpretation (test code = Abnormal 24518-5) [facility] URINALYSIS W SPECIFIC [id number] 19:16:00 Test Item Value Reference Range Interpretation [...] 3267) [facility] URINALYSIS W SPECIFIC [id number] 18:26:00 Test Item Value Reference Range Interpretation [...] clear Lab Interpretation (test code = Normal 02965-6) [facility] URINALYSIS W SPECIFIC [id number] 20:47:00 Test Item Value Reference Range Interpretation [...] 3267) [facility] URINALYSIS W SPECIFIC [id number] 19:47:00 Test Item Value Reference Range Interpretation [...] 3267) [facility] URINALYSIS W SPECIFIC [id number] 19:47:00 Test Item Value Reference Range Interpretation [...] 3267) [facility] URINALYSIS W SPECIFIC [id number] 13:14:00 Test Item Value Reference Range Interpretation [...] . [facility] URINALYSIS W SPECIFIC [id number] 13:14:00 Test Item Value Reference Range Interpretation [...] . [facility] URINALYSIS W SPECIFIC [id number] 13:14:00 Test Item Value Reference Range Interpretation [...] . [facility] URINALYSIS W SPECIFIC [id number] 13:14:00 Test Item Value Reference Range Interpretation [...] . [facility] URINALYSIS W SPECIFIC [id number] 13:14:00 Test Item Value Reference Range Interpretation [...] . [facility] URINALYSIS W SPECIFIC [id number] 13:14:00 Test Item Value Reference Range Interpretation [...] . [facility] URINALYSIS W SPECIFIC [id number] 13:14:00 Test Item Value Reference Range Interpretation [...] . [facility] URINALYSIS W SPECIFIC [id number] 13:14:00 Test Item Value Reference Range Interpretation [...] code = 3267) . [facility] [id number] 13:14:00 Test Item Value Reference Range Interpretation [...] code = 3267) . [facility] [id number] 18:22:00 Test Item Value Reference Range Interpretation Comments LITHIUM LEVEL (BEAKER) 0.8 mmol/L 0.8-1.2 (test code = 630) SCAN RESULT (test code = See Scanned Report [id number]) KATIE, [id number] 14:13:01Reason for exam:->abnormal imaging [facility] : 1995 Sex: FFluoroscopic unit utilized for a procedure performed in the OR. No interpretation was requested. Refer to the operative report for findings. Refer to PACS for patient radiation dose information.COMPREHENSIVE METABOLIC [id number] 06:43:00 Test Item Value Reference Range Interpretation [...] S NOT APPLICABLE FOR DIALYSIS PATIEN TS. Talent Development Coordinator ID - MADISON MC (HEMOGRAM ONLY)2020-09-24 06:04:00 [...] (BEAKER) (test code = 413) COMPREHENSIVE METABOLIC [id number] 07:06:00 Test Item Value Reference Range Interpretation [...] S NOT APPLICABLE FOR DIALYSIS PATIEN TS. Talent Development Coordinator ID - PIAYA LCBC (HEMOGRAM ONLY)2020-09-23 06:47:00 [...] (BEAKER) (test code = 413) COMPREHENSIVE METABOLIC [id number] 08:27:00 Test Item Value Reference Range Interpretation [...] S NOT APPLICABLE FOR DIALYSIS PATIEN TS. Talent Development Coordinator ID - MADISON [id number] 08:27:00 Test Item Value Reference Range Interpretation Comments MAGNESIUM (BEAKER) (test code = 2.4 mg/dL 1.6-2.6 627) Talent Development Coordinator ID - MADISON MPROTHROMBIN [id number] 07:59:00 Test Item Value Reference Range Interpretation Comments PROTIME (BEAKER) 13.0 seconds 11.9-14.2 (test code = 759) INR (BEAKER) (test 1.00 See_Comment [Automat ed message] code = 370) The system [employer] generated this result transmitted ref erence range: <=5.90. The reference range was not used to int erpret this result as normal/abnormal . RECOMMENDED COUMADIN/WARFARIN INR THERAPY RANGESSTANDARD DOSE: 2.0 - 3.0 Includes: PROPHYLAXIS for venous thrombosis, systemic embolization; TREATMENT for venous thrombosis and/or pulmonary embolus.HIGH RISK: Target INR is 2.5-3.5 for patients with mechanical heart valves.CBC W/PLT COUNT & AUTO [id number] 07:49:00 Test Item Value Reference Range Interpretation [...] H PERCENT (BEAKER) (test code = 2801) Notes Date/Time Note Provider Source 2022-10-18 Formatting of this note might be differe nt from the original. Bobby Galvin RN [facility] 19:19:15-00:00 Valorie Rothman is a 27 ye ar old female who presents 23 weeks feeling SOB and pain with deep inspiration for the past week. Pt reports she feels like she has to gasp for a breath of air. T 2022-10-16 [id number] [facility] 19:44:00-00:00 [address], [place] [address] PATIENT NAME: VALORIE ROTHMAN ADMIT DA TE: 10/16/22 ACCOUNT NO: [id number] ROOM NO: AGE: 27 SEX: F ADMITTING PHYSICIAN: ATTENDING PHYSICIAN: Martin Huang MD Order: [id number] Test Reason : SOB Test Date/Time Stamp: ThuOct 16 2022 19:44:01 Blood Pressure : / mmHG Vent. Rate : 070 BPM Atrial Rate : 070 BPM P-R Int : 170 ms QRS Dur : 086 ms QT Int : 410 ms P-R-T Axes : 022 064 038 degree s QTc Int : 442 ms Sinus rhythm with marked sinus arrhythmia Otherwise normal ECG No previous ECGs available Confirmed by TIFFANY MIRANDA MD ([id number]) on 10/19/19 3:28:49 PM Referred By: Self Referred Confirmed by:TIFFANY ARIAS MD Electronically Signed by Tiffany Miranda MD on 0 10/18/22 at 1528 PATIENT NAME: VALORIE ROTHMAN 2022-10-16 [facility] 18:41:00-00:00 [facility] EMERGENCY PROVIDER REPORT REPORT#:[id number] REPORT STATUS: Signed DATE:10/16/22 TIME: 1841 PATIENT: VALORIE ROTHMAN UNIT #: [id number] ROOM/BED: AGE: 27 SEX: F PCP PHYS: Cristopher Stephenson MD SERVICE AUTHOR: Martin Huang MD * ALL edits or amendments must be made on the el [employer]/computer document * HPI-General Illness General Initial Greet Date/Time 10/16/22 7123 Presentation Chief Complaint Shortness of breath Free Text HPI Notes Free Text HPI Notes 27 years old patient past me dical history of seizures, G4, P3 22 weeks presents complaining of several days of increasi ng shortness of breath while resting, denies cough, fever, contact with sick people, leg swelling or any other complaints. Review of Systems ROS Statements All systems rev neg except as marked. Free Text ROS Notes Free Text ROS Notes CONSTITUTIONAL: Normal; negative for fev er, weight change, fatigue, or aching. HEENT: Eyes normal; negative for, irritation, or visual field defects. Ears normal; Negative for pain . Nose normal; Negative for runny nose, sinus problems , or nosebleeds. Mouth normal; Negative for dent al problems,. Throat normal; Negative for hoarseness, difficulty swallowing, or sore throat. CARDIOVASCULAR: Normal; Negative for chest pain or, high blood pressure, orthopnea, GENITOURINARY: Negative for incontinence, UTI, d ysuria, hematuria, vaginal discharge, abnormal bleeding. SKIN: Normal; Negative for rashes. MUSCULOSKELETAL: Normal; Negative for back pain, joint pain. NEUROLOGIC: Normal; Negative for blackouts, head aches, seizures or dizziness. PSYCHIATRIC: Normal; Negative for anxiety, depre ssion, or phobias. ENDOCRINE: Normal; Negative for diabetes, thyroid.HEMATOLOGIC/LYMPHATIC: Normal; Negative for anemia, swollen glands, or blood di sorders. IMMUNOLOGIC: Negative; Negative for steroids, ch emotherapy, or cancer. VASCULAR: Normal; Negative for varicose veins, b lood clots, or leg ulcers. Past Medical History - Adult Stated Complaint SOB, 22 WKS , VOMITING 3 DAYS Allergies Coded Allergies: No Known Allergies (05/14/15) Home Medications Reported Medications lamoTRIgine (LaMICtal) 100 MG PO BID Physical Exam Vital Signs Vital Signs First Documented: Result Date Time Pulse Ox 95 10/16 1804 B/P 124/72 10/16 1804 B/P Mean 89 10/16 1804 O2 Delivery Room air 10/16 1804 Pulse 82 10/16 1804 Resp 22 10/16 1804 Temp 36.9 10/16 2214 Last Documented: Result Date Time Pulse Ox 96 10/16 2214 B/P 127/71 10/16 2214 B/P Mean 89 10/16 2214 O2 Delivery Room air 10/16 2214 Temp 36.9 10/16 2214 Pulse 86 10/16 2214 Resp 18 10/16 2214 Review of Vital Signs Reviewed, Vital signs norm al Basic Physical Exam Basic PE GEN: Well appearing/NAD, HEAD: Atraumat ic/NC, ENT: Membranes moist, NECK: Supple, RESP: No resp distress, CV: Reg ra te rhythm, EXT: No gross abnormality, SKIN: No rashes, warm/dry, NEURO: a lert oriented, NEURO: gross movement NL Interpretation Diagnostics Lab Results Interpretation Results Laboratory Tests 10/16/221953: [Embedded Image Not Available] Laboratory Tests: 10/16 Chemistry Sodium (135 - 145 mEq/L) 140 Potassium (3.5 - 5.0 mEq/L) 3.1 L Chloride (100 - 115 mEq/L) 106 Carbon Dioxide (22 - 31 mEq/L) 24 Anion Gap (10 - 20) 13.60 BUN (7 - 18 mg/dL) 5 L Creatinine (0.5 - 1.0 mg/dL) 0.5 Glomerular Filtr Rate (>60 ml/min) 133 Glucose (65 - 110 mg/dL) 86 Calcium (8.4 - 10.2 mg/dL) 9.1 Total Bilirubin (0.2 - 1.0 mg/dL) 0.2 AST (15 - 37 units/L) 13 L ALT (12 - 78 units/L) 12 Total Alk Phosphatase (46 - 116 units/L) 86 Total Protein (6.3 - 8.2 gm/dL) 6.3 Albumin (3.4 - 4.8 gm/dL) 2.9 L Coagulation D-Dimer (<519 ng/mLFEU) 335 Hematology WBC (6.5 - 12.3 K/mm3) 10.0 RBC (3.51 - 4.69 M/mm3) 3.90 Hgb (10.1 - 13.8 g/dL) 11.3 Hct (32.5 - 41.8 %) 33.2 MCV (84.6 - 96.6 fL) 85.1 MCH (27.3 - 33.9 pg) 29.0 MCHC (32.0 - 34.2 gm/dL) 34.0 RDW (12.2 - 16.3 %) 13.2 Plt Count (134 - 363 K/mm3) 232 MPV (9.2 - 12.7 fL) 10.5 Neut % (Auto) (57.9 - 77.3 %) 63.6 Lymph % (Auto) (14.5 - 29.7 %) 28.5 Anson % (Auto) (3.6 - 10.2 %) 5.3 Eos % (Auto) (0.0 - 3.0 %) 1.2 Baso % (Auto) (0.1 - 0.9 %) 0.4 Neut # (Auto) (K/mm3) 6.3 Lymph # (Auto) (K/mm3) 2.8 Anson # (Auto) (K/mm3) 0.5 Eos # (Auto) (K/mm3) 0.12 Baso # (Auto) (K/mm3) 0.0 Immature Plt Fraction (0.0 - 10.8 %) 2.1 Serology SARS-CoV-2 Ag (Rapid) (NEGATIVE) NEGATIVE Urines Urine Color (YELLOW) YELLOW Urine Appearance (CLEAR) HAZY Urine pH (5 - 9) 6.0 Ur Specific [place] (1.001 - 1.035) 1.020 Urine Protein (NEGATIVE) NEGATIVE Urine Glucose (UA) (NEGATIVE) NEGATIVE Urine Ketones (NEGATIVE) NEGATIVE Urine Blood (NEGATIVE) NEG Urine Nitrite (NEGATIVE) NEGATIVE Urine Bilirubin (NEGATIVE) NEGATIVE Urine Urobilinogen (<=1.0 EU/dL) 0.2 Ur Leukocyte Esterase (NEGATIVE) TRACE H Urine RBC (NONE SEEN #/hpf) 0-2 Urine WBC (NONE SEEN #/hpf) 6-10 H Ur Epithelial Cells (RARE - FEW #/HPF) MODERATE H Amorphous Sediment RARE Urine Bacteria (RARE - FEW /HPF) RARE Urine Mucus (NONE SEEN) 1+ Microbiology: Date/Time Procedure - Status Source Growth 10/16 2124 Urine Culture - COMP URINE Re-Evaluation MDM ED Course Medication(s) Ordered Medication(s) Ordered: Electrolytic, Caloric, And Reji Sig/Victorino Start time Last Medication Dose Route Stop Time Status Admin Potassium Chloride 40 MEQ X1ED STA 10/16 2128 D C PO 10/16 2129 Patient Discharge Departure Vital Signs/Condition Vital Signs First Documented: Result Date Time Pulse Ox 95 08/ 1805 B/P 124/72 08/ 1805 B/P Mean 89 08/ 1805 O2 Delivery Room air 10/16 1805 Pulse 82 08/ 1805 Resp 22 10/16 1805 Temp 36.9 / 2215 Last Documented: Result Date Time Pulse Ox 96 / 2215 B/P 127/71 08/10 2215 B/P Mean 89 08/10 2215 O2 Delivery Room air 10/16 2214 Temp 36.9 10/16 2214 Pulse 86 / 2215 Resp 18 10/16 2214 All vital signs available at the time of this en try have been reviewed. Condition Stable, Improved Clinical Impression Clinical Impression Primary Impression: UTI (urinary tract infection ) Time of Impression 2151 Disposition Decision Discharge )( Discharged to Home Yes )( Time 2152 )( Date 10/16/22 Discharge/Care Plan (Auto) Prescriptions Current Visit Scripts cefUROXime axetiL (CEFTIN) 500 MG PO Q12H cefUROXime axetiL (CEFTIN) 500 MG PO Q12H #14 T ABS Patient Instructions Comfort Tips During , Urinary Tract Infections in Women Electronically Signed by Martin Huang MD 10/19/22 at 1824 [facility] #:[id number] END OF REPORT 2022-10-14 Formatting of this note might be differe nt from the original. Tamara Major RN [facility] 20:36:55-00:00 Written/verbal d/c intructions, out of ER no dis tress Electronically signed by Tamara Major RN a t 10/14/2022 8:37 PM CDT 2022-10-14 Formatting of this note is different from the or iginal. [facility] 19:18:11-00:00 10/14/22191110/14/22191210/14/221913 Orthostatic Vitals BP 126/74 127/79 123/64 Position Lying Sitting Standing Pulse 86 79 80 Electronically signed by Tamara Major RN a t 10/14/2022 7:18 PM CDT 2022-10-14 Formatting of this note is different from the or iginal. [facility] 19:17:57-00:00 10/14/22191110/14/22191210/14/221913 Orthostatic Vitals BP 126/74 127/79 123/64 Position Lying Sitting Standing Pulse 86 79 80 Electronically signed by Tamara Major RN a t 10/14/2022 7:18 PM CDT 2022-10-14 Formatting of this note is different from the or iginal. 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 No LOC, current alert on phone in no distress, vss, denies cough or fever, denies other complaints at this time Electronically signed by Tamara Major RN a t 10/14/2022 7:37 PM CDT 2022-10-14 Formatting of this note might be differe nt from the original. Noris King RN [facility] 18:06:02-00:00 Patient reports that she not iced at work today that her heart was racing and that she was feeling dizzy. At triage patient states that she has also been having chest pain in the center of her chest that comes and goes today. Jesus nt also reports vomiting, however states that she has vomited throughout her 22 weeks- LMP 04/2022 A1 Electronically signed by Noris King, RN at 6:11 PM CDT 2022-10-01 [facility] 07:54:01-00:00 Patient informed [facility] orders placed, stated she had number to [facility] department and will call and schedule. Electronically signed by Calli Miramontes LVN a t 10/01/2022 7:54 AM CDT 2022-09-30 [facility] 14:28:01-00:00 Orders placed RODRIGO Nam 09/30/2022 2:28 PM 2022-09-30 Formatting of this note might be differe nt from the original. Mikayla Tolliver [facility] 13:44:47-00:00 Valorie Rothman is a 27 year old female Pt 20wks requesting that the provider issue the referral for her to get her US for 20wks for the anatomy. Please call [phone] (home) Electronically signed by Mikayla Tolliver at 09/30 1:46 PM CDT"
[2022-10-26] MEDS ORDERED: NA CHLORIDE 0.9% 1,000 ML ONE (12:25)
[2022-10-26] MEDS ORDERED: ONDANSETRON 4 MG/2 ML VIAL ONE (12:25)
--- NOTE | 2022-10-26 12:30 | RAD REPORT ---
EXAM DESCRIPTION: RAD - Chest Single View - 10/26/2022 12:21 pm CLINICAL HISTORY: CHEST PAIN COMPARISON: <Comparisons> FINDINGS: Lines: None. Lungs: No evidence of edema or pneumonia. Pleural: No significant pleural effusions or pneumothorax. Cardiac: The heart size is within normal limits. Mediastinum: Within normal limits. Bones: No acute fractures. Other: None IMPRESSION: No acute cardiopulmonary disease.
[2022-10-26 12:33] LABS: Absolute Lymphocytes (CBC) 2.5 K/uL (0.7-4.9); Hematocrit 33.9 % (36.0-45.0); Lymphocytes % 23.3 % (15.3-44.8); MCV 85.6 fL (80-100); MPV 7.9 fL (7.6-11.3); Platelets 240 thou/uL (152-406); RBC Red Blood Cell Count 3.95 M/uL (3.86-4.86)
[2022-10-26 12:44] LABS: Protime INR 0.97
[2022-10-26 12:54] LABS: ALT/SGPT 12 U/L (13-56); AST/SGOT 8 U/L (15-37); Albumin 2.8 g/dL (3.4-5.0); Alkaline Phosphatase 77 U/L (45-117); BUN Blood Urea Nitrogen 4 mg/dL (7-18); Bicarbonate 21 mEq/L (21-32); Bilirubin Total 0.2 mg/dL (0.2-1.0); Creatine Phosphokinase 36 U/L (26-192); Glomerular Filtration Rate 136 ml/min (=/>90); Glucose Level 79 mg/dL (74-106); Magnesium 1.9 mg/dL (1.6-2.4); NT PRO-BNP 24 pg/mL (<125); Potassium 3.3 mEq/L (3.5-5.1); Protein, Total 6.1 g/dL (6.4-8.2); Sodium Level 136 mEq/L (136-145); Troponin High Sensitivity 5.1 pg/mL (<58.9)
[2022-10-26 12:59] LABS: Bilirubin Direct < 0.1 mg/dL (0-0.2); Bilirubin Indirect, Calculated ND mg/dL (0.2-0.8)
--- NOTE | 2022-10-26 13:11 | RAD REPORT ---
EXAM DESCRIPTION: US - OB Limited - 10/26/2022 12:56 pm CLINICAL HISTORY: PAIN COMPARISON: OB Limited dated 07/05/2022 FINDINGS: A single breech presenting gestation is identified. Heart rate normal. The cervix is close d measuring 4.7 cm . measurements are as follows: AC:19.6 Centimeters 24 week 2 day FL:4.1 Centimeters 23 week 2 day Posterior placenta. No placenta previa. The amniotic fluid index is 18.6, with largest pocket measuring 6.9 cm. The maternal adnexa show no worrisome findings. IMPRESSION: Single breech presenting fetus measuring 23 week 5 day with VICTORIA of 02/17/2023. Closed ce rvix. JAMES is within normal limits. Posterior placenta without previa.
[2022-10-26 13:39] LABS: Specific Gravity 1.007 (1.005-1.030); Urine Bacteria <20 /HPF (<20); Urine Bilirubin NEGATIVE (Negative); Urine Blood Negative (Negative); Urine Clarity Extremely Turbid (Clear); Urine Color Light-Yellow (Yellow); Urine Glucose NEGATIVE (Negative); Urine Mucus Slight /HPF (None Seen); Urine Protein NEGATIVE (Negative); Urine RBC <5 /HPF (None Seen); Urine Urobilinogen Normal (Normal); Urine pH 6.5 (5.0-7.0)
--- NOTE | 2022-10-26 14:10 | ER ---
Nurse's Notes [facility] Name: Mile Wang Age: 27 yrs Sex: Female : 1995 Arrival Date: 10/26/2022 Time: 11:58 Bed 8 Private MD: Diagnosis: Heat exhaustion Presentation: 10/26 12:03 Chief complaint: EMS states: patient started having chest pain 2 hours ago, described ko1 as sharp and dull. Is currently with 4th child. Hx of anxiety, epilepsy and bipolar. BGL 87, ST on monitor 101-111. Coronavirus screen: At this time, the client does not indicate any symptoms associated with coronavirus-19. Ebola Screen: No symptoms or risks identified at this time. Initial Sepsis Screen: Does the patient meet any 2 criteria? No. Patient's initial sepsis screen is negative. Does the patient have a suspected source of infection? No. Patient's initial sepsis screen is negative. Risk Assessment: Do you want to hurt yourself or someone else? Patient reports no desire to harm self or others. Onset of symptoms was October 26, 2022 at 10:00. Care prior to arrival: Glucose check: 87. 12:03 Method Of Arrival: EMS: [facility] ko1 12:03 Acuity: BAIRON 3 ko1 Triage Assessment: 12:07 General: Appears in no apparent distress. comfortable, Behavior is cooperative, ko1 appropriate for age, flat. Pain: Complains of pain in chest. Historical: - Allergies: 12:05 Doxycycline; ko1 12:05 Macrobid; ko1 12:05 Vimpat; ko1 - Home Meds: 12:05 Cymbalta oral [Active]; ko1 - PMHx: 12:05 angina pectoris; Anxiety; Bipolar disorder; Psychogenic Seizures; Seizures; ko1 - PSHx: 12:05 Cholecystectomy; Tonsillectomy; ko1 - Immunization history:: Adult Immunizations up to date. - Social history:: Smoking status: Patient denies any tobacco usage or history of. Screenin:05 [facility] ED Fall Risk Assessment (Adult) History of falling in the last 3 months, ko1 including since admission No falls in past 3 months (0 pts) Confusion or Disorientation No (0 pts) Intoxicated or Sedated No (0 pts) Impaired Gait No (0 pts) Mobility Assist Device Used No (0 pt) Altered Elimination No (0 pt) Score/Fall Risk Level 0 - 2 = Low Risk Oriented to surroundings, Maintained a safe environment, Educated pt \T\ family on fall prevention, incl call for assistance when getting out of bed, Assessed \T\ reinforced patient's understanding of fall precautions, Provided non-skid footwear, Hourly rounding (assess needs \T\ fall precautionary measures) done, Used ambulatory aids as needed (educated on \T\ assisted with), Used gait belt as appropriate. Abuse screen: Denies threats or abuse. Denies injuries from another. Nutritional screening: No deficits noted. Tuberculosis screening: No symptoms or risk factors identified. Assessment: 12:05 Neuro: No deficits noted. Cardiovascular: Reports chest pain. Respiratory: No deficits ko1 noted. GI: No deficits noted. : No deficits noted. EENT: No deficits noted. Derm: No deficits noted. Musculoskeletal: No deficits noted. Vital Signs: 12:07 BP 120 / 63; Pulse 100; Resp 18; Temp 98; Pulse Ox 96% on R/A; ko1 13:00 BP 124 / 72; Pulse 98; Resp 16; Pulse Ox 99% ; ko1 14:00 BP 132 / 74; Pulse 99; Resp 16; Pulse Ox 99% ; ko1 14:45 BP 123 / 71; Pulse 92; Resp 16; Pulse Ox 97% ; ko1 ED Course: 12:02 Patient arrived in ED. ko1 12:03 Mikayla Clemons, JUAN M is Primary Nurse. ko1 12:03 Casa Stephenson MD is Attending Physician. sp3 12:05 Triage completed. ko1 12:05 Patient has correct armband on for positive identification. Bed in low position. Call ko1 light in reach. Side rails up X2. Provided Education on: na. Client placed on continuous cardiac and pulse oximetry monitoring. NIBP monitoring applied. teletypesetter monitor on. Door closed. Noise minimized. 12:07 Arm band placed on right wrist. Patient placed in an exam room, on a stretcher, on ko1 nuclear monitoring technician, on pulse oximetry, Patient notified of wait time. 12:18 Inserted saline lock: 24 gauge in right forearm, using aseptic technique. Blood ds4 collected. 12:19 Basic Metabolic Panel Sent. ko1 12:19 CBC with Diff Sent. ko1 12:20 LFT's Sent. ko1 12:20 Magnesium Sent. ko1 12:20 NT PRO-BNP Sent. ko1 12:20 PT-INR Sent. ko1 12:20 Troponin HS Sent. ko1 12:20 CK Sent. ko1 12:22 XRAY Chest (1 view) In Process Unspecified. EDMS 12:58 US OB Limited In Process Unspecified. EDMS 13:27 UAM Sent. hb 14:41 No provider procedures requiring assistance completed. IV discontinued, intact, ko1 bleeding controlled, No redness/swelling at site. Pressure dressing applied. Administered Medications: 12:21 Drug: NS 0.9% IV 1000 ml Route: IV; Rate: 1 bolus; Site: left forearm; ko1 12:21 Drug: Ondansetron IVP 4 mg Route: IVP; Site: left forearm; ko1 Medication: 14:41 VIS not applicable for this client. ko1 Outcome: 14:09 Discharge ordered by . sp3 14:45 Discharged to home ambulatory, with family. ko1 14:45 Condition: good 14:45 Discharge instructions given to patient, family, Instructed on discharge instructions, follow up and referral plans. Demonstrated understanding of instructions, follow-up care. 14:46 Patient left the ED. ko1 Signatures: Dispatcher [employer] EDMS Malcolm Fay ds4 Cindy Hoff, RN RN Casa Stephenson MD MD sp3 Mikayla Clemons RN RN ko1
--- NOTE | 2022-10-26 14:10 | EDPHYS ---
Physician Documentation [facility] Name: Mile Wang Age: 27 yrs Sex: Female : 1995 Arrival Date: 10/26/2022 Time: 11:58 Bed 8 Private MD: ED Physician Casa Stephenson HPI: 10/26 12:14 This 27 yrs old Female presents to ER via EMS with complaints of Chest pain, sp3 generalized weakness, fatigue. 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 She denies any fever, URI symptoms, shortness of breath, back pain, vomiting, diarrhea, vaginal bleeding or discharge, or any other critical signs or symptoms on ROS at this time. Chest denies travel history or known sick contacts though she does work in the alf where she is exposed to multiple people.. Historical: - Allergies: 12:05 Doxycycline; ko1 12:05 Macrobid; ko1 12:05 Vimpat; ko1 - Home Meds: 12:05 Cymbalta oral [Active]; ko1 - PMHx: 12:05 angina pectoris; Anxiety; Bipolar disorder; Psychogenic Seizures; Seizures; ko1 - PSHx: 12:05 Cholecystectomy; Tonsillectomy; ko1 - Immunization history:: Adult Immunizations up to date. - Social history:: Smoking status: Patient denies any tobacco usage or history of. ROS: 12:15 Constitutional: Negative for fever, chills, and weight loss, Eyes: Negative for injury, sp3 pain, redness, and discharge, ENT: Negative for injury, pain, and discharge, Neck: Negative for injury, pain, and swelling, Respiratory: Negative for shortness of breath, cough, wheezing, and pleuritic chest pain, Back: Negative for injury and pain, MS/Extremity: Negative for injury and deformity, Skin: Negative for injury, rash, and discoloration, Neuro: Negative for headache, weakness, numbness, tingling, and seizure, Psych: Negative for depression, anxiety, suicide ideation, homicidal ideation, and hallucinations, Allergy/Immunology: Negative for hives, rash, and allergies, Endocrine: Negative for neck swelling, polydipsia, polyuria, polyphagia, and marked weight changes. 12:15 All other systems are negative. Exam: 12:16 Constitutional: This is a well developed, well nourished patient who is awake, alert, sp3 and in no acute distress. Head/Face: Normocephalic, atraumatic. Eyes: Pupils equal round and reactive to light, extra-ocular motions intact. Lids and lashes normal. Conjunctiva and sclera are non-icteric and not injected. Cornea within normal limits. Periorbital areas with no swelling, redness, or edema. ENT: Nares patent. No nasal discharge, no septal abnormalities noted. External auditory canals are clear. Oropharynx with no redness, swelling, or masses, exudates, or evidence of obstruction, uvula midline. Mucous membranes moist. Neck: Trachea midline, no thyromegaly or masses palpated, and no cervical lymphadenopathy. Supple, full range of motion without nuchal rigidity, or vertebral point tenderness. No Meningismus. Chest/axilla: Normal chest wall appearance and motion. Nontender with no deformity. No lesions are appreciated. Cardiovascular: Regular rate and rhythm with a normal S1 and S2. No gallops, murmurs, or rubs. Normal PMI, no JVD. No pulse deficits. Respiratory: Lungs have equal breath sounds bilaterally, clear to auscultation and percussion. No rales, rhonchi or wheezes noted. No increased work of breathing, no retractions or nasal flaring. Abdomen/GI: Soft, non-tender, with normal bowel sounds. No distension or tympany. No guarding or rebound. No evidence of tenderness throughout. Back: No spinal tenderness. No costovertebral tenderness. Full range of motion. Skin: Warm, dry with normal turgor. Normal color with no rashes, no lesions, and no evidence of cellulitis. MS/ Extremity: Pulses equal, no cyanosis. Neurovascular intact. Full, normal range of motion. Neuro: Awake and alert, GCS 15, oriented to person, place, time, and situation. Cranial nerves II-XII grossly intact. Motor strength 5/5 in all extremities. Sensory grossly intact. Cerebellar exam normal. Normal gait. Psych: Awake, alert, with orientation to person, place and time. Behavior, mood, and affect are within normal limits. 12:16 Abdomen/GI: Gravid uterus consistent with dates. No peritoneal signs, rebound or guarding noted.. 13:21 ECG was reviewed by the Attending Physician. EKG demonstrates normal sinus rhythm at 98 sp3 bpm with normal intervals, normal QRS, normal axis, normal axis, normal ST/T segments without evidence of acute ischemia. Vital Signs: 12:07 BP 120 / 63; Pulse 100; Resp 18; Temp 98; Pulse Ox 96% on R/A; ko1 13:00 BP 124 / 72; Pulse 98; Resp 16; Pulse Ox 99% ; ko1 14:00 BP 132 / 74; Pulse 99; Resp 16; Pulse Ox 99% ; ko1 14:45 BP 123 / 71; Pulse 92; Resp 16; Pulse Ox 97% ; ko1 MDM: 12:08 Patient medically screened. sp3 12:16 Data reviewed: vital signs, nurses notes, lab test result(s), EKG, radiologic studies. sp3 ED course: 27-year-old female with systemic symptoms of chest pain generalized weakness was also . Believe patient is having acute coronary syndrome, sepsis, shock, or any other critical pathologies. Patient likely has heat exhaustion complicated by her status. Obtain laboratory values, EKG, urine analysis and administer normal saline and ondansetron IV for symptomatic control. If work-up is negative and patient feels better after intervention we will safely discharge patient home. Ultrasound of the uterus is also pending to ensure no further complication of the itself.. 14:08 ED course: Work-up is negative and ultrasound is normal. Patient feels better after 1 L sp3 of normal saline. Patient will be safely discharged home at this time with general precautions and heat related illness diagnosis.. 10/26 12:09 Order name: Basic Metabolic Panel; Complete Time: 13:19 sp3 10/26 12:09 Order name: CBC with Diff; Complete Time: 13:19 sp3 10/26 12:09 Order name: LFT's; Complete Time: 13:19 sp3 10/26 12:09 Order name: Magnesium; Complete Time: 13:19 sp3 10/26 12:09 Order name: NT PRO-BNP; Complete Time: 13:19 sp3 10/26 12:09 Order name: PT-INR; Complete Time: 13:19 sp3 10/26 12:09 Order name: Troponin HS; Complete Time: 13:19 sp3 10/26 12:09 Order name: CK; Complete Time: 13: sp3 10/26 12:09 Order name: UAM; Complete Time: 14:07 sp3 10/26 12:09 Order name: XRAY Chest (1 view); Complete Time: 13: sp3 10/26 12:09 Order name: US OB Limited; Complete Time: 13: sp3 10/26 12:09 Order name: EKG; Complete Time: 12: sp3 10/26 12:09 Order name: Cardiac monitoring; Complete Time: 12: sp3 10/26 12:09 Order name: EKG - Nurse/Tech; Complete Time: 12: sp3 10/26 12:09 Order name: IV Saline Lock; Complete Time: 12: sp3 10/26 12:09 Order name: Labs collected and sent; Complete Time: 12: sp3 10/26 12:09 Order name: O2 Per Protocol; Complete Time: 12: sp3 10/26 12:09 Order name: O2 Sat Monitoring; Complete Time: 12:13 sp3 Administered Medications: 12:21 Drug: NS 0.9% IV 1000 ml Route: IV; Rate: 1 bolus; Site: left forearm; ko1 12:21 Drug: Ondansetron IVP 4 mg Route: IVP; Site: left forearm; ko1 Disposition Summary: 10/26/22 14:09 Discharge Ordered Location: Home sp3 Condition: Stable sp3 Diagnosis - Heat exhaustion sp3 Discharge Instructions: - Discharge Summary Sheet sp3 - Heat Exhaustion sp3 Forms: - Medication Reconciliation Form sp3 - Thank You Letter sp3 - Antibiotic Education sp3 - Prescription Opioid Use sp3 - Patient Portal Instructions sp3 - Leadership Thank You Letter sp3 - Work release form ko1 Signatures: Dispatcher [employer] Casa Iglesias MD MD sp3 Mikayla Clemons RN RN ko1
[2022-10-26 15:03] VITALS: TEMP 98
[2022-10-26 15:06] VITALS: BP 123/71; O2SAT 97
--- NOTE | 2022-10-27 17:58 | EKG ---
Test Date: 2022-10-26 Test Time: 12:25:12 Ergonomics Technician: LUISA MEASUREMENT RESULTS: Intervals: Rate: 98 WY: 188 QRSD: 82 QT: 370 QTc: 472 [place]: P: 44 W[place]: 188 QRS: 81 T: 32 INTERPRETIVE STATEMENTS: Normal sinus rhythm Normal ECG Compared to ECG 10/04/2021 21:41:09 No significant changes Electronically Signed On 10-27-22 17:56:45 CDT by Yuriy Phillips
== END 2022-10-26 14:46 | disposition home or self-care (01) ==
LOC: ER 11:58
DX: O26.812 Pregnancy related exhaustion and fatigue, second trimester (principal); T67.5XXA Heat exhaustion, unspecified, initial encounter; O99.342 Other mental disorders complicating pregnancy, second trimester; F31.9 Bipolar disorder, unspecified; Z3A.24 24 weeks gestation of pregnancy; Z88.1 Allergy status to other antibiotic agents; Z88.8 Allergy status to other drugs, medicaments and biological substances
CPT/HCPCS: 93005; 85025; 81001; 80048; 36415; 83735; 82550; 85610; 80076; 84484; 83880; 71045; 76815; 96374; 99285; J2405; J7030

== ENCOUNTER 2023-01-17 16:44 | Emergency (ER) | payer BC, OTHER ==
--- OUTSIDE RECORDS SUMMARY | 2023-01-17 17:01 | XMS REPORT | Continuity of Care Document ---
:1995 Author Organization [facility] t Address [address] [place] [address] Care Team Providers Name Role Phone Asked, No Pcp Primary Care Physician Unavailable JOANNE PARKINSON Attending Clinician Unavailable NEAL REED Attending Clinician Unavailable COLT MICHAELS Attending Clinician Unavailable ALMA SOLIS Attending Clinician Unavailable RADHA NOBLES Attending Clinician Unavailable [email or web address]_S Attending Clinician Unavailable KEVIN SINGH Attending Clinician Unavailable Risk, Lfa-Cxgmb-On/High Attending Clinician Unavailable Kevin Colbert Attending Clinician Doctor Unassigned, [place] Attending Clinician Unavailable Alma Vasquez Attending Clinician [phone] ELADIA MARIN Attending Clinician Unavailable Ultrasound, Reddy-Mfm Attending Clinician Unavailable Vira Lowry MD, Neal Attending Clinician [phone] Tomas TAYLOR, Eladia Thorpe Attending Clinician [phone] Visit, Ang-Rmchp Nurse Attending Clinician Unavailable Radha Nobles CNM Attending Clinician Lab, Ang-Rmchp Attending Clinician Unavailable LUKE FISH Attending Clinician Unavailable 3, [facility] Usg Room Attending Clinician Unavailable Luke Fish MD Attending Clinician BANDAR SUAREZ Attending Clinician Unavailable BANDAR SUAREZ Attending Clinician Unavailable Martin Huang Attending Clinician Unavailable MARICHUY SMITH Attending Clinician Unavailable Marichuy Arias Attending Clinician DARIELA JACOB Attending Clinician Unavailable Dariela Jacob MD Attending Clinician ZEN CORREA Attending Clinician Unavailable ZEN CORREA Attending Clinician Unavailable Lab, Pea-Rmchp Attending Clinician Unavailable Javan DOLL, Akosua Begum Attending Clinician 1, [facility] Room Attending Clinician Unavailable Mallory Carroll Attending Clinician CHIQUIS KAET Attending Clinician Unavailable CHIQUIS KATE Attending Clinician Unavailable Chiquis Kate MD Attending Clinician Faculty, Reddy Leechp [facility] Attending Clinician Unavailable Seth Kay MD Attending Clinician SETH KAY Attending Clinician Unavailable KIARRA ARIZMENDI Attending Clinician Unavailable Kiarra Brewer Attending Clinician BRUCE FOFANA Attending Clinician Unavailable MAU RHOADES Attending Clinician Unavailable Nurse, Reddy [facility] Attending Clinician Unavailable Unknown, Attending Attending Clinician Unavailable Provider, Ang-Rmchp Temp Attending Clinician Unavailable Dennys Lara MD Attending Clinician RAVEN GOLDSMITH Attending Clinician Unavailable Raven Goldsmith MD Attending Clinician Nory Jiménez DO Attending Clinician Martha Agarwal MD Attending Clinician DENNYS LARA Attending Clinician Unavailable Areli Patel DO Attending Clinician AMY SHARMA Attending Clinician Unavailable Sh[facility], Amy Don Attending Clinician Pob, Adc Lab Main Attending Clinician Unavailable Gianna GAITAN, Trever Clemente Attending Clinician ARELI PATEL Attending Clinician Unavailable Vijaya Wyman RN Attending Clinician Unavailable TREVER KATZ Attending Clinician Unavailable Dexter TAYLOR, Anton Attending Clinician ANTON RENTERIA Attending Clinician Unavailable [...] Clinician Unavailable Armen Rodriguez MD Attending Clinician LILIANA SALINAS Attending Clinician Unavailable Brad GAITAN, Liliana Waters Attending Clinician Lauryn Ramírez MD Attending Clinician LAURYN RAMÍREZ Attending Clinician Unavailable Mesfin Grant RN Attending Clinician Unavailable Mary Rios MD Attending Clinician MARY RIOS Attending Clinician Unavailable Only, Adc Test Attending Clinician Unavailable Cheo Galvin MD Attending Clinician Peace Cardenas Attending Clinician Wong Cade DO Attending Clinician Santosh Simon DO Attending Clinician Kulwinder MCGOWAN, Kevin Camacho Attending Clinician Unavailable TISH NEVAREZ Attending Clinician Unavailable Tish Joyner Attending Clinician URBINA, LORY I Attending Clinician Unavailable Urbina DO, Lory I Attending Clinician BANDAR SUAREZ Admitting Clinician Unavailable LUKE FISH Admitting Clinician Unavailable JOANNE PARKINSON Admitting Clinician Unavailable [email or web address]_S Admitting Clinician Unavailable Physician, No Primary or Family Admitting Clinician UnavailRAVEN Kelley Admitting Clinician Unavailable CHIQUIS KATE Admitting Clinician [...] Type Policy Number Effective Date Expiration Date [facility] [id number] 2017 CHOICE [place] STAR 00:00:00 [facility] [id number] 2021 00:00:00 Problems Condition Condition Condition Status Onset Resolution Last Treating Co mments Source Name Details Category Date Date Treatment Clinician Date Umbilical Umbilical Disease Active 2022-03 Overview: Univers vein vein 0-16 Formattin ity of abnormalit abnormalit 00:00: g of this note Medical affecting affecting might be Br anch different from the original. Continue serial follow upPersist rt umbilvein Shortness Shortness Disease Active Uni vers of breath of breath 8-13 ity of 00:00: 00 Medical Branch Elevated Elevated Disease Active Unive rs blood blood 8-13 ity of pressure pressure 00:00: [place] affecting affecting 00 Medi tressa Bran ch in second in second trimester, trimester, antepartum antepartum Nausea and Nausea and Disease Active U nivers vomiting vomiting 5-02 ity of in in 00:00: [place] 00 [facility] Attention Attention Disease Active Uni vers deficit deficit 4-11 ity of hyperactiv [place] Medical disorder disorder Branch (ADHD), (ADHD), unspecifie unspecifie d ADHD d ADHD type type Anemia, Anemia, Disease Active 2021-03 Univers 2-27 it y of 00:00: [place] 00 Medical Branch 37 weeks 37 weeks Disease Active 2021-03 Unive rs gestation gestation 2-05 ity of of of 00:00: [place] 00 [facility] Seizure Seizure Disease Active 2021-03 Univers 1-24 ity of 00:00: [place] 00 [facility] Disease Active 2021-03 Uni vers with with 0-11 ity of adoption adoption 00:00: [place] planned planned 00 [facility] Branch URI (upper URI (upper Disease Active U nivers respirator respirator 9-25 it y of y y 00:00: [place] infection) infection) 00 Ny dical Branch 27 weeks 27 weeks Disease Active Unive rs gestation gestation 9-25 ity of of of 00:00: [place] 00 [facility] Round Round Disease Active Univers ligament ligament 9-25 ity of pain pain 00:00: [place] 00 Medical Branch BMI BMI Disease Active Univers 35.0-35.9, 35.0-35.9, 9-23 it y of adult adult 00:00: [place] 00 [facility] Branch Elevated Elevated Disease Active [facility] rs blood blood 8-09 ity of pressure pressure 00:00: [place] reading reading 00 Medical without without Branch [...] pap in of cervix of cervix 107/2022 History of History of Disease Active Overview : Univers abnormal abnormal 5-19 Formattin ity of cervical cervical 00:00: g of this [place] as Pap smear Pap smear 00 note [facility] might be Branch different from the original. 05/2018 negative pap/202 2 ASCUS04/2 023 negative pap, routine screening Supervisio Supervisio Disease Active U nivers n of n of 5-05 ity of high-risk high-risk 00:00: [place] 00 [facility] Branch History of History of Disease Active Overview : Univers anxiety anxiety -05 Formattin ity o f 00:00: g of this [place] 00 note Medical might be Branch different from the original. Reports on buspirone Multiparit Multiparit Disease Active U nivers y y 5- ity of 00:00: Medical Branch Obesity in Obesity in Disease Active U nivers 07-11 ity of 00:00: Medical Branch Depression Depression Disease Active Overview : Univers affecting affecting 07-11 Formattin i ty of , , 00:00: g of this [place] antepartum antepartum 00 note Me dical might be Branch different from the original. Reports on buspirone Frequent Frequent Disease Active Unive rs UTI UTI 10-09 ity of 00:00: Medical Branch Seizure Seizure Disease Active Overview: Univ ers disorder disorder - Formattin ity of in in 00:00: g of this [place] 00 note [facility] might be Branch different from the [...] Disease Active Overview: Univ ers disease disease - Formattin ity o f during during 00:00: g of this [place] 00 note Medi tressa might be Branch [...] [facility] TRAMADOL Allergy Active Other 2019[facility] Doxycycl Drug Active Hives, Rash 2019-[address] ine Allergy 2-12 [facility] 00[facility] 00 Center Tramadol Drug Active Other (See 2019-[address] Allergy Comments) 2-12 [facility] 00 Center Doxycycl Propensi Active Other - See 2019-0 seizures Univers ine ty to comments 2-12 ity of adverse 00:00: [place] reaction 00 [facility] Tramadol Propensi Active Other - See 2019-0 seizures Univers ty to comments 2-12 ity of adverse 00:00: [place] reaction 00 [facility] DOXYCYCL DRUG Active Other-Cmnt 2020-0 Univ ers INE INGREDI 2-12 ity of 00:00: [place] 00 [facility] TRAMADOL DRUG Active Other-Cmnt 2020-0 Univ ers INGREDI 2-12 ity of 00:00: [place] 00 [facility] DOXYCYCL Allergy Active High Hives 2019-[address] [facility] INE 2-12 [facility] 00:00: Medical 00 [place] No Known DA Active U [facility]ergie 3-07 [facility] 00 [facility] Social History Social Habit Start Date Stop Date Quantity Comments Source ASSERTION 2022-05-25 [facility] 00:00:00 [facility] History SDOH [facility] Alcohol Std Drinks Medica l Center History SDOH [facility] Alcohol Binge Medical Zay ter History SDOH [facility] Alcohol Comment Medical C enter Gender identity Universit y of [facility] Sexual orientation [facility] Exposure to 2022-07-05 2022-07-15 Not sure University SARS-CoV-2 (event) 00:00:00 14:40:00 [facility] Tobacco use and 2021-10-07 2021-10-07 Smokeless Universit y of exposure 00:00:00 00:00:00 tobacco non-user [place] Me dical Branch Alcohol intake 2020-09-24 2020-09-24 Ex-drinker AMANDA Oshea es 00:00:00 00:00:00 (finding) Medical Center History SDOH 2020-09-22 2020-09-22 1 AMANDA [facility]ial[place] Alcohol Frequency 00:00:00 00:00:00 Medical Center History of Social 2019-01-02 2019-01-[address] function 00:00:00 00:00:00 Hospital Sex Assigned At [birth year] AMANDA [place] 00:00:00 00:00:00 [facility] Center Smoking Status Start Date Stop Date Source Never smoked tobacco [facility] Medications Ordered Filled Start Stop Current Ordering Indication Dosage Frequency Signature Comments Components Source Medication Medication Date Date Medication? Clinician (SIG) Name Name calcium 2022-03 Yes [id number] 500mg Take 1 Un aubree carbonate 0-13 tablet by ity o f 500 mg 00:00: mouth in [place] calcium 00 the Medical (1,250 mg) morning Branch tablet and 1 tablet at noon and 1 tablet in the evening. Take with meals. calcium 2022-03 Yes [id number] 500mg Take 1 Un aubree carbonate 0-13 tablet by ity o f 500 mg 00:00: mouth in [place] calcium 00 the Medical (1,250 mg) morning Branch tablet and 1 tablet at noon and 1 tablet in the evening. Take with meals. calcium 2022-03 Yes [id number] 500mg Take 1 Un aubree carbonate 0-13 tablet by ity o f 500 mg 00:00: mouth in [place] calcium 00 the Medical (1,250 mg) morning Branch tablet and 1 tablet at noon and 1 tablet in the evening. Take with meals. calcium 2022-03 Yes [id number] 500mg Take 1 Un aubree carbonate 0-13 tablet by ity o f 500 mg 00:00: mouth in [place] calcium 00 the Medical (1,250 mg) morning Branch tablet and 1 tablet at noon and 1 tablet in the evening. Take with meals. magnesium 2022- Yes [id number] 400mg Take 1 Univers oxide 400 9-28 11-28 tablet by ity of mg (241.3 00:00: 05:59 mouth in [place] mg 00 :00 the Medical magnesium) morning Branch tablet for 60 days. magnesium 2022- Yes [id number] 400mg Take 1 Univers oxide 400 9-28 11-28 tablet by ity of mg (241.3 00:00: 05:59 mouth in [place] mg 00 :00 the Medical magnesium) morning Branch tablet for 60 days. magnesium 2022- Yes [id number] 400mg Take 1 Univers oxide 400 9-28 11-28 tablet by ity of mg (241.3 00:00: 05:59 mouth in [place] mg 00 :00 the Medical magnesium) morning Branch tablet for 60 days. magnesium 2022- Yes [id number] 400mg Take 1 Univers oxide 400 9-28 11-28 tablet by ity of mg (241.3 00:00: 05:59 mouth in [place] mg 00 :00 the Medical magnesium) morning Branch tablet for 60 days. magnesium 2022- Yes [id number] 400mg Take 1 Univers oxide 400 9- 11-28 tablet by ity of mg (241.3 00:00: 05:59 mouth in [place] mg 00 :00 the Medical magnesium) morning Branch tablet for 60 days. magnesium 2022- Yes [id number] 400mg Take 1 Univers oxide 400 9- 11-28 tablet by ity of mg (241.3 00:00: 05:59 mouth in [place] mg 00 :00 the Medical magnesium) morning Branch tablet for 60 days. magnesium 2022- Yes [id number] 400mg Take 1 Univers oxide 400 9- 11-28 tablet by ity of mg (241.3 00:00: 05:59 mouth in [place] mg 00 :00 the Medical magnesium) morning Branch tablet for 60 days. magnesium 2022- Yes [id number] 400mg Take 1 Univers oxide 400 9-28 11-28 tablet by ity of mg (241.3 00:00: 05:59 mouth in [place] mg 00 :00 the Medical magnesium) morning Branch tablet for 60 days. magnesium 2022- Yes [id number] 400mg Take 1 Univers oxide 400 9-28 11-28 tablet by ity of mg (241.3 00:00: 05:59 mouth in [place] mg 00 :00 the Medical magnesium) morning Branch tablet for 60 days. acetaminoph 2022- No 1000mg 1,000 mg, Univers en 10-19- Oral, ity of (TYLENOL) 02:00: 01:10 ONCE, 1 [place] tablet [place] :[place] dose, On Medical 1,000 mg [facility] Branch 10/18/22 at 2100, Routine foLIC acid 2022-3- No [id number] 4mg Take 4 Univers 1 mg tablet 7-13 10-12 tablets by i ty of 00:00: 04:59 mouth in [place] 00 :00 [facility] for 90 days. foLIC acid 2022-0 2022- No [id number] 4mg Take 4 Univers 1 mg tablet 7-13 10-12 tablets by i ty of 00:00: 04:59 mouth in [place] 00 :00 [facility] for 90 days. foLIC acid 2022-2022- No [id number] 4mg Take 4 Univers 1 mg tablet 7-13 10-12 tablets by i ty of 00:00: 04:59 mouth in [place] 00 :00 [facility] for 90 days. foLIC acid 2022-0 2022- No [id number] 4mg Take 4 Univers 1 mg tablet 7-13 10-12 tablets by i ty of 00:00: 04:59 mouth in [place] 00 :00 [facility] for 90 days. foLIC acid 2022-0 2022- No [id number] 4mg Take 4 Univers 1 mg tablet 7-13 10-12 tablets by i ty of 00:00: 04:59 mouth in [place] 00 :00 [facility] for 90 days. foLIC acid 2022-0 2022- No [id number] 4mg Take 4 Univers 1 mg tablet 7-13 10-12 tablets by i ty of 00:00: 04:59 mouth in [place] 00 :00 [facility] for 90 days. foLIC acid 2022-0 3- No [id number] 4mg Take 4 Univers 1 mg tablet 7-13 10-12 tablets by i ty of 00:00: 04:59 mouth in [place] 00 :00 [facility] for 90 days. foLIC acid 2022-0 2022- No [id number] 4mg Take 4 Univers 1 mg tablet 7-13 10-12 tablets by i ty of 00:00: 04:59 mouth in [place] 00 :00 the Medical morning Branch for 90 days. foLIC acid 2022-0 3- No [id number] 4mg Take 4 Univers 1 mg tablet 7-13 10-12 tablets by i ty of 00:00: 04:59 mouth in [place] 00 :00 the Medical morning Branch for 90 days. foLIC acid 2022-0 2022- No [id number] 4mg Take 4 Univers 1 mg tablet 7-13 10-12 tablets by i ty of 00:00: 04:59 mouth in [place] 00 :00 the [facility] morning Branch for 90 days. foLIC acid 2022-0 3- No [id number] 4mg Take 4 Univers 1 mg tablet 7-13 10-12 tablets by i ty of 00:00: 04:59 mouth in [place] 00 :00 the Medical morning Branch for 90 days. foLIC acid 2022-0 2022- No [id number] 4mg Take 4 Univers 1 mg tablet 7-13 10-12 tablets by i ty of 00:00: 04:59 mouth in [place] 00 :00 the [facility] morning Branch for 90 days. foLIC acid 2022-0 2022- No [id number] 4mg Take 4 Univers 1 mg tablet 7-13 10-12 tablets by i ty of 00:00: 04:59 mouth in [place] 00 :00 the [facility] morning Branch for 90 days. foLIC acid 2022-0 2022- No [id number] 4mg Take 4 Univers 1 mg tablet 7-13 10-12 tablets by i ty of 00:00: 04:59 mouth in [place] 00 :00 the [facility] morning Branch for 90 days. foLIC acid 2022-0 3- No [id number] 4mg Take 4 Univers 1 mg tablet 7-13 10-12 tablets by i ty of 00:00: 04:59 mouth in [place] 00 :00 the [facility] morning Branch for 90 days. foLIC acid 2022-0 3- No [id number] 4mg Take 4 Univers 1 mg tablet 7-13 10-12 tablets by i ty of 00:00: 04:59 mouth in [place] 00 :00 the [facility] morning Branch for 90 days. foLIC acid 2022-0 3- No [id number] 4mg Take 4 Univers 1 mg tablet 7-13 10-12 tablets by i ty of 00:00: 04:59 mouth in [place] 00 :00 the [facility] morning Branch for 90 days. foLIC acid 2022-0 3- No [id number] 4mg Take 4 Univers 1 mg tablet 7-13 10-12 tablets by i ty of 00:00: 04:59 mouth in [place] 00 :00 the Medical morning Branch for 90 days. foLIC acid 2022-0 2022- No [id number] 4mg Take 4 Univers 1 mg tablet 7-13 10-12 tablets by i ty of 00:00: 04:59 mouth in [place] 00 :00 the Medical morning Branch for 90 days. foLIC acid 2022-0 2022- No [id number] 4mg Take 4 Univers 1 mg tablet 7-13 10-12 tablets by i ty of 00:00: 04:59 mouth in [place] 00 :00 the Medical morning Branch for 90 days. foLIC acid 2022-0 2022- No [id number] 4mg Take 4 Univers 1 mg tablet 7-13 10-12 tablets by i ty of 00:00: 04:59 mouth in [place] 00 :00 the Medical morning Branch for 90 days. foLIC acid 2022-0 2022- No [id number] 4mg Take 4 Univers 1 mg tablet 7-13 10-12 tablets by i ty of 00:00: 04:59 mouth in [place] 00 :00 the Medical morning Branch for 90 days. foLIC acid 2022-0 2022- No [id number] 4mg Take 4 Univers 1 mg tablet 7-13 10-12 tablets by i ty of 00:00: 04:59 mouth in [place] 00 :00 the Medical morning Branch for 90 days. foLIC acid 2022-0 3- No [id number] 4mg Take 4 Univers 1 mg tablet 7-13 10-12 tablets by i ty of 00:00: 04:59 mouth in [place] 00 :00 the Medical morning Branch for 90 days. foLIC acid 2022-0 2022- No [id number] 4mg Take 4 Univers 1 mg tablet 7-13 10-12 tablets by i ty of 00:00: 04:59 mouth in [place] 00 :00 the Medical morning Branch for 90 days. foLIC acid 2022-0 3- No [id number] 4mg Take 4 Univers 1 mg tablet 7-13 10-12 tablets by i ty of 00:00: 04:59 mouth in [place] 00 :00 the Medical morning Branch for 90 days. foLIC acid 2022-0 3- No [id number] 4mg Take 4 Univers 1 mg tablet 7-13 10-12 tablets by i ty of 00:00: 04:59 mouth in [place] 00 :00 the Medical morning Branch for 90 days. PNV 67-iron 2022-0 2022- No [id number] 1{tbl} Take 1 Univers ps-folate 7-13 08-13 tablet by ity of no.1-dha 00:00: 04:59 mouth in [facility] (VITAFOL 00 :00 the Medical ULTRA) 29 morning Branch mg iron- 1 for 30 mg-200 mg days. Cap PNV 67-iron 2022-0 2022- No [id number] 1{tbl} Take 1 Univers ps-folate 7-13 08-13 tablet by ity of no.1-dha 00:00: 04:59 mouth in [facility] (VITAFOL 00 :00 the Medical ULTRA) 29 morning Branch mg iron- 1 for 30 mg-200 mg days. Cap PNV 67-iron 2022-0 2022- No [id number] 1{tbl} Take 1 Univers ps-folate 7-13 08-13 tablet by ity of no.1-dha 00:00: 04:59 mouth in [facility] (VITAFOL 00 :00 the Medical ULTRA) 29 morning Branch mg iron- 1 for 30 mg-200 mg days. Cap PNV 67-iron 2022-2022- No [id number] 1{tbl} Take 1 Univers ps-folate 7-13 08-13 tablet by ity of no.1-dha 00:00: 04:59 mouth in [facility] (VITAFOL 00 :00 the Medical ULTRA) 29 morning Branch mg iron- 1 for 30 mg-200 mg days. Cap PNV 67-iron 2022-0 2022- No [id number] 1{tbl} Take 1 Univers ps-folate 7-13 08-13 tablet by ity of no.1-dha 00:00: 04:59 mouth in [facility] (VITAFOL 00 :00 the Medical ULTRA) 29 morning Branch mg iron- 1 for 30 mg-200 mg days. Cap PNV 67-iron 2022-0 2022- No [id number] 1{tbl} Take 1 Univers ps-folate 7-13 08-13 tablet by ity of no.1-dha 00:00: 04:59 mouth in [facility] (VITAFOL 00 :00 the Medical ULTRA) 29 morning Branch mg iron- 1 for 30 mg-200 mg days. Cap PNV 67-iron 2022-0 2022- No [id number] 1{tbl} Take 1 Univers ps-folate 7-10-19 tablet by ity of no.1-dha 00:00: 04:59 [place] (VITAFOL 00 :00 the Medical ULTRA) 29 morning Branch mg iron- 1 for 30 mg-200 mg days. Cap PNV 67-iron 2022-0 2022- No [id number] 1{tbl} Take 1 Univers ps-folate 7-10-19 tablet by ity of no.1-dha 00:00: 04:59 [place] (VITAFOL 00 :00 the Medical ULTRA) 29 morning Branch mg iron- 1 for 30 mg-200 mg days. Cap PNV 67-iron 2022-0 2022- No [id number] 1{tbl} Take 1 Univers ps-folate -10-19 tablet by ity of no.1-dha 00:00: 04:59 [place] (VITAFOL 00 :00 the Medical ULTRA) 29 morning Branch mg iron- 1 for 30 mg-200 mg days. Cap lamoTRIgine 2023-0 Yes [id number] 100mg Take 1 Univers (LAMICTAL) 6-16 tablet by ity of 100 mg 00:00: mouth in [place] tablet 00 the Medical morning. Branch lamoTRIgine 2023-0 Yes [id number] 100mg Take 1 Univers (LAMICTAL) 6-16 tablet by ity of 100 mg 00:00: mouth in [place] tablet 00 the Medical morning. Branch lamoTRIgine 2023-0 Yes [id number] 100mg Take 1 Univers (LAMICTAL) 6-16 tablet by ity of 100 mg 00:00: mouth in [place] tablet 00 the Medical morning. Branch lamoTRIgine 2023-0 Yes [id number] 100mg Take 1 Univers (LAMICTAL) 6-16 tablet by ity of 100 mg 00:00: mouth in [place] tablet 00 the Medical morning. Branch lamoTRIgine 2023-0 Yes [id number] 100mg Take 1 Univers (LAMICTAL) 6-16 tablet by ity of 100 mg 00:00: mouth in [place] tablet 00 the Medical morning. Branch lamoTRIgine 2023-0 Yes [id number] 100mg Take 1 Univers (LAMICTAL) 6-16 tablet by ity of 100 mg 00:00: mouth in [place] tablet 00 the Medical morning. Branch lamoTRIgine 2023-0 Yes [id number] 100mg Take 1 Univers (LAMICTAL) 6-16 tablet by ity of 100 mg 00:00: mouth in [place] tablet 00 the Medical morning. Branch lamoTRIgine 2023-0 Yes [id number] 100mg Take 1 Univers (LAMICTAL) 6-16 tablet by ity of 100 mg 00:00: mouth in [place] tablet 00 the Medical morning. Branch lamoTRIgine 3-0 Yes [id number] 100mg Take 1 Univers (LAMICTAL) 6-16 tablet by ity of 100 mg 00:00: mouth in [place] tablet 00 the Medical morning. Branch lamoTRIgine 3-0 Yes [id number] 100mg Take 1 Univers (LAMICTAL) 6-16 tablet by ity of 100 mg 00:00: mouth in [place] tablet 00 the Medical morning. Branch lamoTRIgine 3-0 Yes [id number] 100mg Take 1 Univers (LAMICTAL) 6-16 tablet by ity of 100 mg 00:00: mouth in [place] tablet 00 the Medical morning. Branch lamoTRIgine 3-0 Yes [id number] 100mg Take 1 Univers (LAMICTAL) 6-16 tablet by ity of 100 mg 00:00: mouth in [place] tablet 00 the Medical morning. Branch lamoTRIgine 2023-0 Yes [id number] 100mg Take 1 Univers (LAMICTAL) 6-16 tablet by ity of 100 mg 00:00: mouth in [place] tablet 00 the Medical morning. Branch lamoTRIgine 3-0 Yes [id number] 100mg Take 1 Univers (LAMICTAL) 6-16 tablet by ity of 100 mg 00:00: mouth in [place] tablet 00 the Medical morning. Branch lamoTRIgine 2023-0 Yes [id number] 100mg Take 1 Univers (LAMICTAL) 6-16 tablet by ity of 100 mg 00:00: mouth in [place] tablet 00 the Medical morning. Branch lamoTRIgine 2023-0 Yes [id number] 100mg Take 1 Univers (LAMICTAL) 6-16 tablet by ity of 100 mg 00:00: mouth in [place] tablet 00 the Medical morning. Branch lamoTRIgine 2023-0 Yes [id number] 100mg Take 1 Univers (LAMICTAL) 6-16 tablet by ity of 100 mg 00:00: mouth in [place] tablet 00 the Medical morning. Branch lamoTRIgine 2023-0 Yes [id number] 100mg Take 1 Univers (LAMICTAL) 6-16 tablet by ity of 100 mg 00:00: mouth in [place] tablet 00 the Medical morning. Branch lamoTRIgine 2023-0 Yes [id number] 100mg Take 1 Univers (LAMICTAL) 6-16 tablet by ity of 100 mg 00:00: mouth in [place] tablet 00 the Medical morning. Branch lamoTRIgine 3-0 Yes [id number] 100mg Take 1 Univers (LAMICTAL) 6-16 tablet by ity of 100 mg 00:00: mouth in [place] tablet 00 the Medical morning. Branch lamoTRIgine 3-0 Yes [id number] 100mg Take 1 Univers (LAMICTAL) 6-16 tablet by ity of 100 mg 00:00: mouth in [place] tablet 00 the Medical morning. Branch lamoTRIgine 3-0 Yes [id number] 100mg Take 1 [facility] (LAMICTAL) 6-16 tablet by ity of 100 mg 00:00: mouth in [place] tablet 00 the Medical morning. Branch lamoTRIgine 3-0 Yes [id number] 100mg Take 1 [facility] (LAMICTAL) 6-16 tablet by ity of 100 mg 00:00: mouth in [place] tablet 00 the Medical morning. Branch lamoTRIgine 2023-0 Yes [id number] 100mg Take 1 [facility] (LAMICTAL) 6-16 tablet by ity of 100 mg 00:00: mouth in [place] tablet 00 the Medical morning. Branch lamoTRIgine 3-0 Yes [id number] 100mg Take 1 [facility] (LAMICTAL) 6-16 tablet by ity of 100 mg 00:00: mouth in [place] tablet 00 the Medical morning. Branch lamoTRIgine 2023-0 Yes [id number] 100mg Take 1 [facility] (LAMICTAL) 6-16 tablet by ity of 100 mg 00:00: mouth in [place] tablet 00 the Medical morning. Branch lamoTRIgine 2023-0 Yes [id number] 100mg Take 1 [facility] (LAMICTAL) 6-16 tablet by ity of 100 mg 00:00: mouth in [place] tablet 00 the Medical morning. Branch lamoTRIgine 3-0 Yes [id number] 100mg Take 1 [facility] (LAMICTAL) 6-16 tablet by ity of 100 mg 00:00: mouth in [place] tablet 00 the Medical morning. Branch lamoTRIgine 3-0 Yes [id number] 100mg Take 1 [facility] (LAMICTAL) 6-16 tablet by ity of 100 mg 00:00: mouth in [place] tablet 00 the Medical morning. Branch lamoTRIgine 2022-0 Yes [id number] 100mg Take 1 [facility] (LAMICTAL) 6-16 tablet by ity of 100 mg 00:00: mouth in [place] tablet 00 the Medical morning. Branch lamoTRIgine 2022-0 Yes [id number] 100mg Take 1 [facility] (LAMICTAL) 6-16 tablet by ity of 100 mg 00:00: mouth in [place] tablet 00 the Medical morning. Branch lamoTRIgine 2022-0 Yes [id number] 100mg Take 1 [facility] (LAMICTAL) 6-16 tablet by ity of 100 mg 00:00: mouth in [place] tablet 00 the Medical morning. Branch lamoTRIgine 2022-0 Yes [id number] 100mg Take 1 [facility] (LAMICTAL) 6-16 tablet by ity of 100 mg 00:00: mouth in [place] tablet 00 the Medical morning. Branch lamoTRIgine 3-0 Yes [id number] 100mg Take 1 [facility] (LAMICTAL) 6-16 tablet by ity of 100 mg 00:00: mouth in [place] tablet 00 the Medical morning. Branch lamoTRIgine 2022-0 Yes [id number] 100mg Take 1 [facility] (LAMICTAL) 6-16 tablet by ity of 100 mg 00:00: mouth in [place] tablet 00 the Medical morning. Branch lamoTRIgine 2022-0 Yes [id number] 100mg Take 1 [facility] (LAMICTAL) 6-16 tablet by ity of 100 mg 00:00: mouth in [place] tablet 00 the Medical morning. Branch NaCl 0.9% 2022- No 1000mL at 999 [facility] vers (NS) bolus 5-09 05-09 mL/hr, ity of infusion 20:45: 21:40 1,000 mL, [place] as 1,000 mL 00 :00 IV Medical Infusion, Branch ONCE, 1 dose, On Thu07/15/22 at 1545, STAT doxylamine- 3-0 Yes [id number] Day 1: [facility] pyridoxine, 5-02 Take 2 ity of vit B6, 00:00: tablet [place] (DICLEGIS) 00 before Medical 10-10 mg bed. Day Branch per tablet 2: If still having nausea and vomiting 2 tablet bed. Day 3 take 1 tablet in am and 2 tablet at bed doxylamine- 2023-0 Yes [id number] Day 1: [facility] pyridoxine, 5-02 Take 2 ity of vit B6, 00:00: tablet [place] (DICLEGIS) 00 before Medical 10-10 mg bed. Day Branch per tablet 2: If still having nausea and vomiting 2 tablet bed. Day 3 take 1 tablet in am and 2 tablet at bed doxylamine- 2023-0 Yes [id number] Day 1: [facility] pyridoxine, 5- Take 2 ity of vit B6, 00:00: tablet [place] (DICLEGIS) 00 before Medical 10-10 mg bed. Day Branch per tablet 2: If still having nausea and vomiting 2 tablet bed. Day 3 take 1 tablet in am and 2 tablet at bed doxylamine- 3-0 Yes [id number] Day 1: [facility] pyridoxine, 5- Take 2 ity of vit B6, 00:00: tablet [place] (DICLEGIS) 00 before Medical 10-10 mg bed. Day Branch per tablet 2: If still having nausea and vomiting 2 tablet bed. Day 3 take 1 tablet in am and 2 tablet at bed doxylamine- 3-0 Yes [id number] Day 1: [facility] pyridoxine, 5-02 Take 2 ity of vit B6, 00:00: tablet [place] (DICLEGIS) 00 before Medical 10-10 mg bed. Day Branch per tablet 2: If still having nausea and vomiting 2 tablet bed. Day 3 take 1 tablet in am and 2 tablet at bed doxylamine- 2023-0 Yes [id number] Day 1: [facility] pyridoxine, 5-02 Take 2 ity of vit B6, 00:00: tablet [place] (DICLEGIS) 00 before Medical 10-10 mg bed. Day Branch per tablet 2: If still having nausea and vomiting 2 tablet bed. Day 3 take 1 tablet in am and 2 tablet at bed doxylamine- 2023-0 Yes [id number] Day 1: [facility] pyridoxine, 5-02 Take 2 ity of vit B6, 00:00: tablet [place] (DICLEGIS) 00 before Medical 10-10 mg bed. Day Branch per tablet 2: If still having nausea and vomiting 2 tablet bed. Day 3 take 1 tablet in am and 2 tablet at bed doxylamine- 2023-0 Yes [id number] Day 1: [facility] pyridoxine, 5-02 Take 2 ity of vit B6, 00:00: tablet [place] (DICLEGIS) 00 before Medical 10-10 mg bed. Day Branch per tablet 2: If still having nausea and vomiting 2 tablet bed. Day 3 take 1 tablet in am and 2 tablet at bed doxylamine- 2023-0 Yes [id number] Day 1: [facility] pyridoxine, 5-02 Take 2 ity of vit B6, 00:00: tablet [place] (DICLEGIS) 00 before Medical 10-10 mg bed. Day Branch per tablet 2: If still having nausea and vomiting 2 tablet bed. Day 3 take 1 tablet in am and 2 tablet at bed doxylamine- 3-0 Yes [id number] Day 1: [facility] pyridoxine, 5-02 Take 2 ity of vit B6, 00:00: tablet [place] (DICLEGIS) 00 before Medical 10-10 mg bed. Day Branch per tablet 2: If still having nausea and vomiting 2 tablet bed. Day 3 take 1 tablet in am and 2 tablet at bed doxylamine- 3-0 Yes [id number] Day 1: [facility] pyridoxine, 5-02 Take 2 ity of vit B6, 00:00: tablet [place] (DICLEGIS) 00 before Medical 10-10 mg bed. Day Branch per tablet 2: If still having nausea and vomiting 2 tablet bed. Day 3 take 1 tablet in am and 2 tablet at bed doxylamine- 2023-0 Yes [id number] Day 1: [facility] pyridoxine, 5-02 Take 2 ity of vit B6, 00:00: tablet [place] (DICLEGIS) 00 before Medical 10-10 mg bed. Day Branch per tablet 2: If still having nausea and vomiting 2 tablet bed. Day 3 take 1 tablet in am and 2 tablet at bed doxylamine- 2023-0 Yes [id number] Day 1: [facility] pyridoxine, 5-02 Take 2 ity of vit B6, 00:00: tablet [place] (DICLEGIS) 00 before Medical 10-10 mg bed. Day Branch per tablet 2: If still having nausea and vomiting 2 tablet bed. Day 3 take 1 tablet in am and 2 tablet at bed doxylamine- 2023-0 Yes [id number] Day 1: [facility] pyridoxine, 5-02 Take 2 ity of vit B6, 00:00: tablet [place] (DICLEGIS) 00 before Medical 10-10 mg bed. Day Branch per tablet 2: If still having nausea and vomiting 2 tablet bed. Day 3 take 1 tablet in am and 2 tablet at bed doxylamine- 2023-0 Yes [id number] Day 1: [facility] pyridoxine, 5-02 Take 2 ity of vit B6, 00:00: tablet [place] (DICLEGIS) 00 before Medical 10-10 mg bed. Day Branch per tablet 2: If still having nausea and vomiting 2 tablet bed. Day 3 take 1 tablet in am and 2 tablet at bed doxylamine- 2023-0 Yes [id number] Day 1: [facility] pyridoxine, 5-02 Take 2 ity of vit B6, 00:00: tablet [place] (DICLEGIS) 00 before Medical 10-10 mg bed. Day Branch per tablet 2: If still having nausea and vomiting 2 tablet bed. Day 3 take 1 tablet in am and 2 tablet at bed doxylamine- 2023-0 Yes [id number] Day 1: [facility] pyridoxine, 5-02 Take 2 ity of vit B6, 00:00: tablet [place] (DICLEGIS) 00 before Medical 10-10 mg bed. Day Branch per tablet 2: If still having nausea and vomiting 2 tablet bed. Day 3 take 1 tablet in am and 2 tablet at bed doxylamine- 2023-0 Yes [id number] Day 1: [facility] pyridoxine, 5-02 Take 2 ity of vit B6, 00:00: tablet [place] (DICLEGIS) 00 before Medical 10-10 mg bed. Day Branch per tablet 2: If still having nausea and vomiting 2 tablet bed. Day 3 take 1 tablet in am and 2 tablet at bed doxylamine- 2023-0 Yes [id number] Day 1: [facility] pyridoxine, 5-02 Take 2 ity of vit B6, 00:00: tablet [place] (DICLEGIS) 00 before Medical 10-10 mg bed. Day Branch per tablet 2: If still having nausea and vomiting 2 tablet bed. Day 3 take 1 tablet in am and 2 tablet at bed doxylamine- 2023-0 Yes [id number] Day 1: [facility] pyridoxine, 07-08 Take 2 ity of vit B6, 00:00: tablet [place] (DICLEGIS) 00 before Medical 10-10 mg bed. Day Branch per tablet 2: If still having nausea and vomiting 2 tablet bed. Day 3 take 1 tablet in am and 2 tablet at bed doxylamine- 2023-0 2023- No [id number] Day 1: [facility] pyridoxine, 07-08 Take 2 ity o f vit B6, 00:00: 00:00 tablet [place] (DICLEGIS) 00 :00 before Medical 10-10 mg bed. Day Branch per tablet 2: If still having nausea and vomiting 2 tablet bed. Day 3 take 1 tablet in am and 2 tablet at bed proMETHazin 2023-0 Yes [id number] 25mg Take 1 [facility] e 25 mg 4-19 tablet by ity of tablet 00:00: mouth [place] 00 every 6 Medical (six) Branch hours as needed for Nausea and Vomiting (N/V). proMETHazin 2023-0 Yes [id number] 25mg Take 1 [facility] e 25 mg 4-19 tablet by ity of tablet 00:00: mouth [place] 00 every 6 Medical (six) Branch hours as needed for Nausea and Vomiting (N/V). proMETHazin 2023-0 Yes [id number] 25mg Take 1 [facility] e 25 mg 4-19 tablet by ity of tablet 00:00: mouth [place] 00 every 6 Medical (six) Branch hours as needed for Nausea and Vomiting (N/V). proMETHazin 2023-0 Yes [id number] 25mg Take 1 [facility] e 25 mg 4-19 tablet by ity of tablet 00:00: mouth [place] 00 every 6 Medical (six) Branch hours as needed for Nausea and Vomiting (N/V). proMETHazin 2023-0 Yes [id number] 25mg Take 1 [facility] e 25 mg 4-19 tablet by ity of tablet 00:00: mouth [place] 00 every 6 Medical (six) Branch hours as needed for Nausea and Vomiting (N/V). proMETHazin 2023-0 Yes [id number] 25mg Take 1 [facility] e 25 mg 4-19 tablet by ity of tablet 00:00: mouth [place] 00 every 6 Medical (six) Branch hours as needed for Nausea and Vomiting (N/V). proMETHazin 2023-0 Yes [id number] 25mg Take 1 [facility] e 25 mg 4-19 tablet by ity of tablet 00:00: mouth [place] 00 every 6 Medical (six) Branch hours as needed for Nausea and Vomiting (N/V). proMETHazin 2023-0 Yes [id number] 25mg Take 1 [facility] e 25 mg 4-19 tablet by ity of tablet 00:00: mouth [place] 00 every 6 Medical (six) Branch hours as needed for Nausea and Vomiting (N/V). proMETHazin 2023-0 Yes [id number] 25mg Take 1 [facility] e 25 mg 4-19 tablet by ity of tablet 00:00: mouth [place] 00 every 6 Medical (six) Branch hours as needed for Nausea and Vomiting (N/V). proMETHazin 2023-0 Yes [id number] 25mg Take 1 [facility] e 25 mg 4-19 tablet by ity of tablet 00:00: mouth [place] 00 every 6 Medical (six) Branch hours as needed for Nausea and Vomiting (N/V). proMETHazin 2023-0 Yes [id number] 25mg Take 1 [facility] e 25 mg 4-19 tablet by ity of tablet 00:00: mouth [place] 00 every 6 Medical (six) Branch hours as needed for Nausea and Vomiting (N/V). proMETHazin 2023-0 Yes [id number] 25mg Take 1 [facility] e 25 mg 4-19 tablet by ity of tablet 00:00: mouth [place] 00 every 6 Medical (six) Branch hours as needed for Nausea and Vomiting (N/V). proMETHazin 2023-0 Yes [id number] 25mg Take 1 [facility] e 25 mg 4-19 tablet by ity of tablet 00:00: mouth [place] 00 every 6 Medical (six) Branch hours as needed for Nausea and Vomiting (N/V). proMETHazin 2023-0 Yes [id number] 25mg Take 1 [facility] e 25 mg 4-19 tablet by ity of tablet 00:00: mouth [place] 00 every 6 Medical (six) Branch hours as needed for Nausea and Vomiting (N/V). proMETHazin 2023-0 Yes [id number] 25mg Take 1 [facility] e 25 mg 4-19 tablet by ity of tablet 00:00: mouth [place] 00 every 6 Medical (six) Branch hours as needed for Nausea and Vomiting (N/V). proMETHazin 2023-0 Yes [id number] 25mg Take 1 [facility] e 25 mg 4-19 tablet by ity of tablet 00:00: mouth [place] 00 every 6 Medical (six) Branch hours as needed for Nausea and Vomiting (N/V). proMETHazin 2023-0 Yes [id number] 25mg Take 1 [facility] e 25 mg 4-19 tablet by ity of tablet 00:00: mouth [place] 00 every 6 Medical (six) Branch hours as needed for Nausea and Vomiting (N/V). proMETHazin 2023-0 Yes [id number] 25mg Take 1 [facility] e 25 mg 4-19 tablet by ity of tablet 00:00: mouth [place] 00 every 6 Medical (six) Branch hours as needed for Nausea and Vomiting (N/V). proMETHazin 2023-0 Yes [id number] 25mg Take 1 [facility] e 25 mg 4-19 tablet by ity of tablet 00:00: mouth [place] 00 every 6 Medical (six) Branch hours as needed for Nausea and Vomiting (N/V). proMETHazin 3-0 Yes [id number] 25mg Take 1 [facility] e 25 mg 4-19 tablet by ity of tablet 00:00: mouth [place] 00 every 6 Medical (six) Branch hours as needed for Nausea and Vomiting (N/V). proMETHazin 2023-0 Yes [id number] 25mg Take 1 [facility] e 25 mg 4-19 tablet by ity of tablet 00:00: mouth [place] 00 every 6 Medical (six) Branch hours as needed for Nausea and Vomiting (N/V). proMETHazin 2023-0 Yes [id number] 25mg Take 1 [facility] e 25 mg 4-19 tablet by ity of tablet 00:00: mouth [place] 00 every 6 Medical (six) Branch hours as needed for Nausea and Vomiting (N/V). proMETHazin 2023-0 Yes [id number] 25mg Take 1 [facility] e 25 mg 4-19 tablet by ity of tablet 00:00: mouth [place] 00 every 6 Medical (six) Branch hours as needed for Nausea and Vomiting (N/V). proMETHazin 2023-0 2023- No [id number] 25mg Take 1 [facility] e 25 mg 4-19 07-13 tablet by ity of tablet 00:00: 00:00 mouth [place] 00 :00 every 6 Medical (six) Branch hours as needed for Nausea and Vomiting (N/V). foLIC acid 2022- No [id number] 4mg Take 4 [facility] 1 mg tablet 4-17 10-15 tablets by i ty of 00:00: 04:59 mouth in [place] 00 :00 the [facility] morning Branch for 180 days. foLIC acid 2022- No [id number] 4mg Take 4 [facility] 1 mg tablet 4-17 10-15 tablets by i ty of 00:00: 04:59 mouth in [place] 00 :00 the [facility] Branch for 180 days. foLIC acid 2022- No [id number] 4mg Take 4 [facility] 1 mg tablet 4-17 10-15 tablets by i ty of 00:00: 04:59 mouth in [place] 00 :00 the [facility] for 180 days. foLIC acid 2022- No [id number] 4mg Take 4 [facility] 1 mg tablet 4-17 10-15 tablets by i ty of 00:00: 04:59 mouth in [place] 00 :00 the [facility] for 180 days. foLIC acid 2022- No [id number] 4mg Take 4 [facility] 1 mg tablet 4-17 10-15 tablets by i ty of 00:00: 04:59 mouth in [place] 00 :00 the [facility] for 180 days. foLIC acid 2022- No [id number] 4mg Take 4 [facility] 1 mg tablet 4-17 10-15 tablets by i ty of 00:00: 04:59 mouth in [place] 00 :00 the [facility] for 180 days. foLIC acid 2022- No [id number] 4mg Take 4 [facility] 1 mg tablet 4-17 10-15 tablets by i ty of 00:00: 04:59 mouth in [place] 00 :00 the [facility] Branch for 180 days. foLIC acid 2022- No [id number] 4mg Take 4 [facility] 1 mg tablet 4-17 10-15 tablets by i ty of 00:00: 04:59 mouth in [place] 00 :00 the [facility] for 180 days. foLIC acid 2022- No [id number] 4mg Take 4 [facility] 1 mg tablet 4-17 10-15 tablets by i ty of 00:00: 04:59 mouth in [place] 00 :00 the Medical morning Branch for 180 days. foLIC acid 2022- No [id number] 4mg Take 4 [facility] 1 mg tablet 4-17 10-15 tablets by i ty of 00:00: 04:59 mouth in [place] 00 :00 the Medical morning Branch for 180 days. foLIC acid 2022- No [id number] 4mg Take 4 [facility] 1 mg tablet 4-17 10-15 tablets by i ty of 00:00: 04:59 mouth in [place] 00 :00 the Medical morning Branch for 180 days. foLIC acid 2022- No [id number] 4mg Take 4 [facility] 1 mg tablet 4-17 10-15 tablets by i ty of 00:00: 04:59 mouth in [place] 00 :00 the [facility] morning Branch for 180 days. foLIC acid 2022- No [id number] 4mg Take 4 [facility] 1 mg tablet 4-17 10-15 tablets by i ty of 00:00: 04:59 mouth in [place] 00 :00 the [facility] morning [place] for 180 days. foLIC acid 2022- No [id number] 4mg Take 4 [facility] 1 mg tablet 4-17 10-15 tablets by i ty of 00:00: 04:59 mouth in [place] 00 :00 the [facility] morning Branch for 180 days. foLIC acid 2022- No [id number] 4mg Take 4 [facility] 1 mg tablet 4-17 10-15 tablets by i ty of 00:00: 04:59 mouth in [place] 00 :00 the [facility] morning [place] for 180 days. foLIC acid 2022- No [id number] 4mg Take 4 [facility] 1 mg tablet 4-17 10-15 tablets by i ty of 00:00: 04:59 mouth in [place] 00 :00 the [facility] morning Branch for 180 days. foLIC acid 2022- No [id number] 4mg Take 4 [facility] 1 mg tablet 4-17 10-15 tablets by i ty of 00:00: 04:59 mouth in [place] 00 :00 the Medical morning Branch for 180 days. foLIC acid 2022- No [id number] 4mg Take 4 [facility] 1 mg tablet 4-17 10-15 tablets by i ty of 00:00: 04:59 mouth in [place] 00 :00 the Medical morning Branch for 180 days. foLIC acid 2022-0 2022- No [id number] 4mg Take 4 [facility] 1 mg tablet 4-17 10-15 tablets by i ty of 00:00: 04:59 mouth in [place] 00 :00 the Medical morning Branch for 180 days. foLIC acid 2022-0 2022- No [id number] 4mg Take 4 [facility] 1 mg tablet 4-17 10-15 tablets by i ty of 00:00: 04:59 mouth in [place] 00 :00 the Medical morning Branch for 180 days. foLIC acid 2022-0 2022- No [id number] 4mg Take 4 [facility] 1 mg tablet 4-17 10-15 tablets by i ty of 00:00: 04:59 mouth in [place] 00 :00 the Medical morning Branch for 180 days. foLIC acid 2022-0 2022- No [id number] 4mg Take 4 [facility] 1 mg tablet 4-17 10-15 tablets by i ty of 00:00: 04:59 mouth in [place] 00 :00 the [facility] morning Branch for 180 days. foLIC acid 2022-0 2022- No [id number] 4mg Take 4 [facility] 1 mg tablet 4-17 10-15 tablets by i ty of 00:00: 04:59 mouth in [place] 00 :00 the Medical morning Branch for 180 days. foLIC acid 2022-0 2022- No [id number] 4mg Take 4 [facility] 1 mg tablet 4-17 10-15 tablets by i ty of 00:00: 04:59 mouth in [place] 00 :00 the [facility] morning Branch for 180 days. foLIC acid 2022-0 2022- No [id number] 4mg Take 4 [facility] 1 mg tablet 4-17 10-15 tablets by i ty of 00:00: 04:59 mouth in [place] 00 :00 the Medical morning Branch for 180 days. foLIC acid 2022-0 2022- No [id number] 4mg Take 4 [facility] 1 mg tablet 4-17 10-15 tablets by i ty of 00:00: 04:59 mouth in [place] 00 :00 the Medical morning Branch for 180 days. foLIC acid 2022-0 3- No [id number] 4mg Take 4 [facility] 1 mg tablet 4-17 10-15 tablets by i ty of 00:00: 04:59 mouth in [place] 00 :00 the Medical morning Branch for 180 days. foLIC acid 2022-0 3- No [id number] 4mg Take 4 [facility] 1 mg tablet 4-17 10-15 tablets by i ty of 00:00: 04:59 mouth in [place] 00 :00 the Medical morning Branch for 180 days. foLIC acid 2022-0 3- No [id number] 4mg Take 4 [facility] 1 mg tablet 4-17 10-15 tablets by i ty of 00:00: 04:59 mouth in [place] 00 :00 the Medical morning Branch for 180 days. foLIC acid 2022-0 3- No [id number] 4mg Take 4 [facility] 1 mg tablet 4-17 10-15 tablets by i ty of 00:00: 04:59 mouth in [place] 00 :00 the [facility] morning Branch for 180 days. foLIC acid 2022-0 2022- No [id number] 4mg Take 4 [facility] 1 mg tablet 4-17 10-15 tablets by i ty of 00:00: 04:59 mouth in [place] 00 :00 the [facility] morning Branch for 180 days. foLIC acid 2022-0 3- No [id number] 4mg Take 4 [facility] 1 mg tablet 4-17 10-15 tablets by i ty of 00:00: 04:59 mouth in [place] 00 :00 the [facility] morning Branch for 180 days. foLIC acid 2022-0 3- No [id number] 4mg Take 4 [facility] 1 mg tablet 4-17 10-15 tablets by i ty of 00:00: 04:59 mouth in [place] 00 :00 the [facility] morning Branch for 180 days. foLIC acid 2022-0 3- No [id number] 4mg Take 4 [facility] 1 mg tablet 4-17 10-15 tablets by i ty of 00:00: 04:59 mouth in [place] 00 :00 the Medical morning Branch for 180 days. foLIC acid 2022-0 3- No [id number] 4mg Take 4 [facility] 1 mg tablet 4-17 10-15 tablets by i ty of 00:00: 04:59 mouth in [place] 00 :00 the [facility] morning Branch for 180 days. foLIC acid 2022-0 3- No [id number] 4mg Take 4 [facility] 1 mg tablet 4-17 10-15 tablets by i ty of 00:00: 04:59 mouth in [place] 00 :00 the Medical morning Branch for 180 days. foLIC acid 2022-2022- No [id number] 4mg Take 4 [facility] 1 mg tablet 4-17 10-15 tablets by i ty of 00:00: 04:59 mouth in [place] 00 :00 the Medical morning Branch for 180 days. foLIC acid 2022- No [id number] 4mg Take 4 [facility] 1 mg tablet 4-17 10-15 tablets by i ty of 00:00: 04:59 mouth in [place] 00 :00 the Medical morning Branch for 180 days. foLIC acid 2022-2022- No [id number] 4mg Take 4 [facility] 1 mg tablet 4-17 10-15 tablets by i ty of 00:00: 04:59 mouth in [place] 00 :00 the Medical morning Branch for 180 days. foLIC acid 2022-2022- No [id number] 4mg Take 4 [facility] 1 mg tablet 4-17 10-15 tablets by i ty of 00:00: 04:59 mouth in [place] 00 :00 the [facility] morning Branch for 180 days. foLIC acid 2022- No [id number] 4mg Take 4 [facility] 1 mg tablet 4-17 10-15 tablets by i ty of 00:00: 04:59 mouth in [place] 00 :00 the [facility] morning Branch for 180 days. foLIC acid 2022- No [id number] 4mg Take 4 [facility] 1 mg tablet 4-17 10-15 tablets by i ty of 00:00: 04:59 mouth in [place] 00 :00 the [facility] morning Branch for 180 days. foLIC acid 2022- No [id number] 4mg Take 4 [facility] 1 mg tablet 4-17 10-15 tablets by i ty of 00:00: 04:59 mouth in [place] 00 :00 the [facility] morning Branch for 180 days. foLIC acid 2022-0 2022- No [id number] 4mg Take 4 [facility] 1 mg tablet 4-17 10-15 tablets by i ty of 00:00: 04:59 mouth in [place] 00 :00 the [facility] morning Branch for 180 days. foLIC acid 0 2022- No [id number] 4mg Take 4 [facility] 1 mg tablet 4-17 10-15 tablets by i ty of 00:00: 04:59 mouth in [place] 00 :00 the [facility] morning Branch for 180 days. foLIC acid 2022- No [id number] 4mg Take 4 [facility] 1 mg tablet 4-17 10-15 tablets by i ty of 00:00: 04:59 mouth in [place] 00 :00 the Medical morning Branch for 180 days. foLIC acid 2022- No [id number] 4mg Take 4 [facility] 1 mg tablet 4-17 10-15 tablets by i ty of 00:00: 04:59 mouth in [place] 00 :00 the Medical morning Branch for 180 days. foLIC acid 2022- No [id number] 4mg Take 4 [facility] 1 mg tablet 4-17 10-15 tablets by i ty of 00:00: 04:59 mouth in [place] 00 :00 the Medical morning Branch for 180 days. foLIC acid 2022-2022- No [id number] 4mg Take 4 [facility] 1 mg tablet 4-17 10-15 tablets by i ty of 00:00: 04:59 mouth in [place] 00 :00 the Medical morning Branch for 180 days. foLIC acid 2022- No [id number] 4mg Take 4 [facility] 1 mg tablet 4-17 10-15 tablets by i ty of 00:00: 04:59 mouth in [place] 00 :00 the Medical morning Branch for 180 days. foLIC acid 2022- No [id number] 4mg Take 4 [facility] 1 mg tablet 4-17 10-15 tablets by i ty of 00:00: 04:59 mouth in [place] 00 :00 the Medical morning Branch for 180 days. foLIC acid 2022- No [id number] 4mg Take 4 [facility] 1 mg tablet 4-17 10-15 tablets by i ty of 00:00: 04:59 mouth in [place] 00 :00 the Medical morning Branch for 180 days. foLIC acid 2022- No [id number] 4mg Take 4 [facility] 1 mg tablet 4-17 10-15 tablets by i ty of 00:00: 04:59 mouth in [place] 00 :00 the Medical morning Branch for 180 days. 2022-0 Yes [id number] 1{tbl} Take 1 U nivers multivitami 4-11 tablet by ity of n ( 00:00: mouth in [place] VITAMIN) 00 the Medical tablet morning. Branch 2022-0 Yes [id number] 1{tbl} Take 1 U nivers multivitami 4-11 tablet by ity of n ( 00:00: mouth in [place] VITAMIN) 00 the Medical tablet morning. [place] Yes [id number] 1{tbl} Take 1 U nivers multivitami 4-11 tablet by ity of n ( 00:00: mouth in [place] VITAMIN) 00 the Medical tablet morning. [place] Yes [id number] 1{tbl} Take 1 U nivers multivitami 4-11 tablet by ity of n ( 00:00: mouth in [place] VITAMIN) 00 the Medical tablet morning. [place] Yes [id number] 1{tbl} Take 1 U nivers multivitami 4-11 tablet by ity of n ( 00:00: mouth in [place] VITAMIN) 00 the Medical tablet morning. [place] Yes [id number] 1{tbl} Take 1 U nivers multivitami 4-11 tablet by ity of n ( 00:00: mouth in [place] VITAMIN) 00 the Medical tablet morning. [place] Yes [id number] 1{tbl} Take 1 U nivers multivitami 4-11 tablet by ity of n ( 00:00: mouth in [place] VITAMIN) 00 the Medical tablet morning. [place] Yes [id number] 1{tbl} Take 1 U nivers multivitami 4-11 tablet by ity of n ( 00:00: mouth in [place] VITAMIN) 00 the Medical tablet morning. [place] Yes [id number] 1{tbl} Take 1 U nivers multivitami 4-11 tablet by ity of n ( 00:00: mouth in [place] VITAMIN) 00 the Medical tablet morning. [place] Yes [id number] 1{tbl} Take 1 U nivers multivitami 4-11 tablet by ity of n ( 00:00: mouth in [place] VITAMIN) 00 the Medical tablet morning. [place] Yes [id number] 1{tbl} Take 1 U nivers multivitami 4-11 tablet by ity of n ( 00:00: mouth in [place] VITAMIN) 00 the Medical tablet morning. [place] Yes [id number] 1{tbl} Take 1 [facility] 4-11 tablet by [facility] ( 00:00: mouth in [place] VITAMIN) 00 the Medical tablet morning. [place] Yes [id number] 1{tbl} Take 1 [facility] 4-11 tablet by [facility] ( 00:00: mouth in [place] VITAMIN) 00 the Medical tablet morning. [place] Yes [id number] 1{tbl} Take 1 [facility] 4-11 tablet by [facility] ( 00:00: mouth in [place] VITAMIN) 00 the Medical tablet morning. [place] Yes [id number] 1{tbl} Take 1 [facility] 4-11 tablet [facility] ( 00:00: mouth in [place] VITAMIN) 00 the Medical tablet morning. [place] Yes [id number] 1{tbl} Take 1 [facility] 4-11 tablet [facility] ( 00:00: mouth in [place] VITAMIN) 00 the Medical tablet morning. [place] Yes [id number] 1{tbl} Take 1 [facility] 4-11 tablet [facility] ( 00:00: mouth in [place] VITAMIN) 00 the Medical tablet morning. [place] Yes [id number] 1{tbl} Take 1 [facility] 4-11 tablet by [facility] ( 00:00: mouth in [place] VITAMIN) 00 the Medical tablet morning. [place] Yes [id number] 1{tbl} Take 1 [facility] 4-11 tablet by [facility] ( 00:00: mouth in [place] VITAMIN) 00 the Medical tablet morning. [place] Yes [id number] 1{tbl} Take 1 [facility] 4-11 tablet [facility] ( 00:00: mouth in [place] VITAMIN) 00 the Medical tablet morning. [place] Yes [id number] 1{tbl} Take 1 [facility] 4-11 tablet [facility] ( 00:00: mouth in [place] VITAMIN) 00 the Medical tablet morning. [place] Yes [id number] 1{tbl} Take 1 [facility] 4-11 tablet [facility] ( 00:00: mouth in [place] VITAMIN) 00 the Medical tablet morning. [place] Yes [id number] 1{tbl} Take 1 [facility] 4-11 tablet by [facility] ( 00:00: mouth in [place] VITAMIN) 00 the Medical tablet morning. [facility] Yes [id number] 1{tbl} Take 1 [facility] 4-11 tablet by [facility] ( 00:00: mouth in [place] VITAMIN) 00 the Medical tablet morning. [place] Yes [id number] 1{tbl} Take 1 [facility] 4-11 tablet [facility] ( 00:00: mouth in [place] VITAMIN) 00 the Medical tablet morning. [place] Yes [id number] 1{tbl} Take 1 [facility] 4-11 tablet [facility] ( 00:00: mouth in [place] VITAMIN) 00 the Medical tablet morning. [place] Yes [id number] 1{tbl} Take 1 [facility] 4-11 tablet [facility] ( 00:00: mouth in [place] VITAMIN) 00 the Medical tablet morning. [place] Yes [id number] 1{tbl} Take 1 [facility] 4-11 tablet [facility] ( 00:00: mouth in [place] VITAMIN) 00 the Medical tablet morning. [place] Yes [id number] 1{tbl} Take 1 [facility] 4-11 tablet by [facility] ( 00:00: mouth in [place] VITAMIN) 00 the Medical tablet morning. [place] Yes [id number] 1{tbl} Take 1 [facility] 4-11 tablet [facility] ( 00:00: mouth in [place] VITAMIN) 00 the Medical tablet morning. [place] 2022- No [id number] 1{tbl} Take 1 [facility] 4-11 07-13 tablet by [facility] ( 00:00: 00:00 mouth in [place] VITAMIN) 00 :00 the Medical tablet morning. [facility] gabapentin 2023-0 Yes TAKE 1 [facility] 300 mg 3-15 CAPSULE BY [facility] 00:[facility]: [place]TH [place]CE [place] 00 DAILY Medical NEEDED FOR [facility] PANIC ATTACKS DULoxetine 2023-0 Yes 60mg Take 1 [facility] 60 mg 3-15 capsule by [facility] of capsule 00:00: mouth in [place] 00 the Medical morning. [facility] gabapentin 2023-0 Yes TAKE 1 [facility] 300 mg 3-15 CAPSULE BY [facility] capsule 00:00: [place]TH [place]CE [place] 00 DAILY Medical NEEDED FOR [facility] PANIC ATTACKS DULoxetine 2023-0 Yes 60mg Take 1 [facility] 60 mg 3-15 capsule by [facility] capsule 00:00: mouth in [place] 00 the Medical morning. [facility] gabapentin 2023-0 Yes TAKE 1 [facility] 300 mg 3-15 CAPSULE BY [facility] capsule 00:00: M[place]TH [place]CE [place] 00 DAILY Medical NEEDED FOR [facility] PANIC ATTACKS DULoxetine 2023-0 Yes 60mg Take 1 [facility] 60 mg 3-15 capsule by [facility] capsule 00:00: mouth in [place] 00 the Medical morning. [facility] gabapentin 3-0 Yes TAKE 1 [facility] 300 mg 3-15 CAPSULE BY [facility] capsule 00:00: MOUTH [place]CE [place] 00 DAILY Medical NEEDED FOR [facility] PANIC ATTACKS DULoxetine 2023-0 Yes 60mg Take 1 [facility] 60 mg 3-15 capsule by [facility] of capsule 00:00: mouth in [place] 00 the Medical morning. [facility] gabapentin 2023-0 Yes TAKE 1 [facility] 300 mg 3-15 CAPSULE BY [facility] capsule 00:00: M[place]TH [place]CE [place] 00 DAILY Medical NEEDED FOR [facility] PANIC ATTACKS DULoxetine 2023-0 Yes 60mg Take 1 [facility] 60 mg 3-15 capsule by [facility] of capsule 00:00: mouth in [place] 00 the Medical morning. [facility] gabapentin 2023-0 Yes TAKE 1 [facility] 300 mg 3-15 CAPSULE BY [facility] capsule 00:00: M[place]TH [place]CE [place] 00 DAILY Medical NEEDED FOR [facility] PANIC ATTACKS DULoxetine 2023-0 Yes 60mg Take 1 [facility] 60 mg 3-15 capsule by [facility] of capsule 00:00: mouth in [place] 00 the Medical morning. [facility] gabapentin 2023-0 Yes TAKE 1 [facility] 300 mg 3-15 CAPSULE BY [facility] capsule 00:00: M[place]TH [place]CE [place] 00 DAILY Medical NEEDED FOR [facility] PANIC ATTACKS DULoxetine 2023-0 Yes 60mg Take 1 [facility] 60 mg 3-15 capsule by [facility] of capsule 00:00: mouth in [place] the Medical morning. [facility] gabapentin 2023-0 Yes TAKE 1 [facility] 300 mg 3-15 CAPSULE BY [facility] capsule 00:00: MOUTH [place]CE [place] 00 DAILY Medical NEEDED FOR [facility] PANIC ATTACKS DULoxetine 2023-0 Yes 60mg Take 1 [facility] 60 mg 3-15 capsule by [facility] of capsule 00:00: mouth in [place] the Medical morning. [facility] gabapentin 3-0 Yes TAKE 1 [facility] 300 mg 3-15 CAPSULE BY [facility] capsule 00:00: M[place]TH [place]CE [place] 00 DAILY Medical NEEDED FOR [facility] PANIC ATTACKS DULoxetine 3-0 Yes 60mg Take 1 [facility] rs 60 mg 3-15 capsule by [facility] of capsule 00:00: mouth in [place] the Medical morning. [facility] gabapentin 3-0 Yes TAKE 1 [facility] 300 mg 3-15 CAPSULE BY [facility] capsule 00:00: MOUTH [place]CE [place] 00 DAILY Medical NEEDED FOR [facility] PANIC ATTACKS DULoxetine 3-0 Yes 60mg Take 1 [facility] rs 60 mg 3-15 capsule by [facility] of capsule 00:00: mouth in [place] the Medical morning. [facility] gabapentin 3-0 Yes TAKE 1 [facility] 300 mg 3-15 CAPSULE BY [facility] capsule 00:00: M[place]TH [place]CE [place] 00 DAILY Medical NEEDED FOR [facility] PANIC ATTACKS DULoxetine 3-0 Yes 60mg Take 1 [facility] rs 60 mg 3-15 capsule by [facility] of capsule 00:00: mouth in [place] the Medical morning. [facility] gabapentin 2023-0 Yes TAKE 1 [facility] 300 mg 3-15 CAPSULE BY [facility] capsule 00:00: MOUTH [place]CE [place] 00 DAILY Medical NEEDED FOR [facility] PANIC ATTACKS DULoxetine 2023-0 Yes 60mg Take 1 [facility] rs 60 mg 3-15 capsule by [facility] of capsule 00:00: mouth in [place] the Medical morning. [facility] gabapentin 2023-0 Yes TAKE 1 [facility] 300 mg 3-15 CAPSULE BY [facility] capsule 00:00: MOUTH [place]CE [place] 00 DAILY Medical NEEDED FOR [facility] PANIC ATTACKS DULoxetine 2023-0 Yes 60mg Take 1 [facility] rs 60 mg 3-15 capsule by [facility] of capsule 00:00: mouth in [place] 00 the Medical morning. [facility] gabapentin 2023-0 Yes TAKE 1 [facility] 300 mg 3-15 CAPSULE BY [facility] capsule 00:00: MOUTH [place]CE [place] 00 DAILY Medical NEEDED FOR [facility] PANIC ATTACKS DULoxetine 2023-0 Yes 60mg Take 1 [facility] rs 60 mg 3-15 capsule by [facility] of capsule 00:00: mouth in [place] the Medical morning. [facility] gabapentin 2023-0 Yes TAKE 1 [facility] 300 mg 3-15 CAPSULE BY [facility] capsule 00:00: MOUTH [place]CE [place] 00 DAILY Medical NEEDED FOR [facility] PANIC ATTACKS DULoxetine 3-0 Yes 60mg Take 1 [facility] rs 60 mg 3-15 capsule by [facility] of capsule 00:00: mouth in [place] the Medical morning. [facility] gabapentin 2023-0 Yes TAKE 1 [facility] 300 mg 3-15 CAPSULE BY [facility] capsule 00:00: MOUTH [place]CE [place] 00 DAILY Medical NEEDED FOR [facility] PANIC ATTACKS DULoxetine 3-0 Yes 60mg Take 1 [facility] rs 60 mg 3-15 capsule by [facility] of capsule 00:00: mouth in [place] the Medical morning. [facility] gabapentin 3-0 Yes TAKE 1 [facility] 300 mg 3-15 CAPSULE BY [facility] capsule 00:00: M[place]TH [place]CE [place] 00 DAILY Medical NEEDED FOR [facility] PANIC ATTACKS DULoxetine 3-0 Yes 60mg Take 1 [facility] rs 60 mg 3-15 capsule by [facility] of capsule 00:00: mouth in [place] the Medical morning. [facility] gabapentin 2023-0 Yes TAKE 1 [facility] 300 mg 3-15 CAPSULE BY [facility] capsule 00:00: MOUTH [place]CE [place] 00 DAILY Medical NEEDED FOR [facility] PANIC ATTACKS DULoxetine 2023-0 Yes 60mg Take 1 [facility] rs 60 mg 3-15 capsule by [facility] of capsule 00:00: mouth in [place] the Medical morning. [facility] gabapentin 2023-0 Yes TAKE 1 [facility] 300 mg 3-15 CAPSULE BY [facility] capsule 00:00: MOUTH [place]CE [place] 00 DAILY Medical NEEDED FOR [facility] PANIC ATTACKS DULoxetine 2023-0 Yes 60mg Take 1 [facility] rs 60 mg 3-15 capsule by [facility] of capsule 00:00: mouth in [place] the Medical morning. [facility] gabapentin 2023-0 Yes TAKE 1 [facility] 300 mg 3-15 CAPSULE BY [facility] capsule 00:00: MOUTH ONCE [place] 00 DAILY Medical NEEDED FOR [facility] PANIC ATTACKS DULoxetine 2023-0 Yes 60mg Take 1 [facility] rs 60 mg 3-15 capsule by [facility] of capsule 00:00: mouth in [place] the Medical morning. [facility] gabapentin 2023-0 Yes TAKE 1 [facility] 300 mg 3-15 CAPSULE BY [facility] capsule 00:00: MOUTH [place]CE [place] 00 DAILY Medical NEEDED FOR [facility] PANIC ATTACKS DULoxetine 3-0 Yes 60mg Take 1 [facility] rs 60 mg 3-15 capsule by [facility] of capsule 00:00: mouth in [place] the Medical morning. [facility] gabapentin 3-0 Yes TAKE 1 [facility] 300 mg 3-15 CAPSULE BY [facility] capsule 00:00: MOUTH ONCE [place] 00 DAILY Medical NEEDED FOR [facility] PANIC ATTACKS DULoxetine 3-0 Yes 60mg Take 1 [facility] rs 60 mg 3-15 capsule by [facility] of capsule 00:00: mouth in [place] the Medical morning. [facility] gabapentin 3-0 Yes TAKE 1 [facility] 300 mg 3-15 CAPSULE BY [facility] capsule 00:00: MOUTH [place]CE [place] 00 DAILY Medical NEEDED FOR [facility] PANIC ATTACKS DULoxetine 3-0 Yes 60mg Take 1 [facility] rs 60 mg 3-15 capsule by [facility] of capsule 00:00: mouth in [place] the Medical morning. [facility] gabapentin 3-0 Yes TAKE 1 [facility] rs 300 mg 3-15 CAPSULE BY [facility] capsule 00:00: MOUTH ONCE [place] 00 DAILY Medical NEEDED FOR [facility] PANIC ATTACKS DULoxetine 2023-0 Yes 60mg Take 1 [facility] rs 60 mg 3-15 capsule by [facility] of capsule 00:00: mouth in [place] the Medical morning. [facility] gabapentin 2023-0 Yes TAKE 1 [facility] 300 mg 3-15 CAPSULE BY [facility] capsule 00:00: MOUTH [place]CE [place] 00 DAILY Medical NEEDED FOR [facility] PANIC ATTACKS DULoxetine 2023-0 Yes 60mg Take 1 [facility] rs 60 mg 3-15 capsule by [facility] of capsule 00:00: mouth in [place] the Medical morning. [facility] gabapentin 2023-0 Yes TAKE 1 [facility] 300 mg 3-15 CAPSULE BY [facility] capsule 00:00: MOUTH ONCE [place] 00 DAILY Medical NEEDED FOR [facility] PANIC ATTACKS DULoxetine 2023-0 Yes 60mg Take 1 [facility] rs 60 mg 3-15 capsule by [facility] of capsule 00:00: mouth in [place] 00 the Medical morning. [facility] gabapentin 2023-0 Yes TAKE 1 [facility] rs 300 mg 3-15 CAPSULE BY [facility] capsule 00:00: MOUTH ONCE [place] 00 DAILY Medical NEEDED FOR [facility] PANIC ATTACKS DULoxetine 2023-0 Yes 60mg Take 1 [facility] rs 60 mg 3-15 capsule by [facility] of capsule 00:00: mouth in [place] 00 the Medical morning. [facility] gabapentin 2023-0 Yes TAKE 1 [facility] 300 mg 3-15 CAPSULE BY [facility] capsule 00:00: MOUTH ONCE [place] 00 DAILY Medical NEEDED FOR [facility] PANIC ATTACKS DULoxetine 2023-0 Yes 60mg Take 1 [facility] rs 60 mg 3-15 capsule by [facility] of capsule 00:00: mouth in [place] the Medical morning. [facility] gabapentin 2023-0 Yes TAKE 1 [facility] 300 mg 3-15 CAPSULE BY [facility] capsule 00:00: MOUTH ONCE [place] 00 DAILY Medical NEEDED FOR [facility] PANIC ATTACKS DULoxetine 2023-0 Yes 60mg Take 1 [facility] rs 60 mg 3-15 capsule by [facility] of capsule 00:00: mouth in [place] the Medical morning. [facility] gabapentin 2023-0 Yes TAKE 1 [facility] 300 mg 3-15 CAPSULE BY [facility] capsule 00:00: MOUTH ONCE [place] 00 DAILY Medical NEEDED FOR [facility] PANIC ATTACKS DULoxetine 2023-0 Yes 60mg Take 1 [facility] rs 60 mg 3-15 capsule by [facility] of capsule 00:00: mouth in [place] 00 the Medical morning. [facility] DULoxetine 2023-0 Yes 60mg Take 1 [facility] rs 60 mg 3-15 capsule by [facility] of capsule 00:00: mouth in [place] 00 the Medical morning. [facility] DULoxetine 2023-0 Yes 60mg Take 1 [facility] rs 60 mg 3-15 capsule by [facility] of capsule 00:00: mouth in [place] 00 the Medical morning. [facility] DULoxetine 2023-0 Yes 60mg Take 1 [facility] rs 60 mg 3-15 capsule by [facility] of capsule 00:00: mouth in [place] 00 the Medical morning. [facility] DULoxetine 2023-0 Yes 60mg Take 1 [facility] rs 60 mg 3-15 capsule by [facility] of capsule 00:00: mouth in [place] 00 the Medical morning. [facility] DULoxetine 2023-0 Yes 60mg Take 1 [facility] rs 60 mg 3-15 capsule by [facility] of capsule 00:00: mouth in [place] the Medical morning. [facility] DULoxetine 2023-0 Yes 60mg Take 1 [facility] rs 60 mg 3-15 capsule by [facility] of capsule 00:00: mouth in [place] the Medical morning. [facility] DULoxetine 2023-0 Yes 60mg Take 1 [facility] rs 60 mg 3-15 capsule by [facility] of capsule 00:00: mouth in [place] the Medical morning. [facility] DULoxetine 2023-0 Yes 60mg Take 1 [facility] rs 60 mg 3-15 capsule by [facility] of capsule 00:00: mouth in [place] the Medical morning. [facility] DULoxetine 2023-0 Yes 60mg Take 1 [facility] rs 60 mg 3-15 capsule by [facility] of capsule 00:00: mouth in [place] the Medical morning. [facility] DULoxetine 2023-0 Yes 60mg Take 1 [facility] rs 60 mg 3-15 capsule by [facility] of capsule 00:00: mouth in [place] the Medical morning. [facility] DULoxetine 2023-0 Yes 60mg Take 1 [facility] rs 60 mg 3-15 capsule by [facility] of capsule 00:00: mouth in [place] the Medical morning. [facility] DULoxetine 2023-0 Yes 60mg Take 1 [facility] rs 60 mg 3-15 capsule by [facility] of capsule 00:00: mouth in [place] the Medical morning. [facility] DULoxetine 2023-0 Yes 60mg Take 1 [facility] rs 60 mg 3-15 capsule by [facility] of capsule 00:00: mouth in [place] the Medical morning. [facility] DULoxetine 2023-0 Yes 60mg Take 1 [facility] rs 60 mg 3-15 capsule by [facility] of capsule 00:00: mouth in [place] the Medical morning. [facility] DULoxetine 2023-0 Yes 60mg Take 1 [facility] rs 60 mg 3-15 capsule by [facility] of capsule 00:00: mouth in [place] the Medical morning. [facility] DULoxetine 2023-0 Yes 60mg Take 1 [facility] rs 60 mg 3-15 capsule by it[facility] of capsule 00:00: mouth in [place] the Medical morning. [facility] DULoxetine 2023-0 Yes 60mg Take 1 [facility] rs 60 mg 3-15 capsule by [facility] of capsule 00:00: mouth in [place] the Medical morning. [facility] DULoxetine 2023-0 Yes 60mg Take 1 [facility] rs 60 mg 3-15 capsule by it[facility] of capsule 00:00: mouth in [place] the Medical morning. [facility] DULoxetine 2023-0 Yes 60mg Take 1 [facility] rs 60 mg 3-15 capsule by it[facility] of capsule 00:00: mouth in [place] the Medical morning. [facility] DULoxetine 2023-0 Yes 60mg Take 1 [facility] rs 60 mg 3-15 capsule by it[facility] of capsule 00:00: mouth in [place] the Medical morning. [facility] DULoxetine 2023-0 Yes 60mg Take 1 [facility] rs 60 mg 3-15 capsule by it[facility] of capsule 00:00: mouth in [place] the Medical morning. [facility] DULoxetine 2023-0 Yes 60mg Take 1 [facility] rs 60 mg 3-15 capsule by [facility] of capsule 00:00: mouth in [place] the Medical morning. [facility] DULoxetine 2023-0 Yes 60mg Take 1 [facility] rs 60 mg 3-15 capsule by [facility] of capsule 00:00: mouth in [place] the Medical morning. [facility] DULoxetine 2023-0 Yes 60mg Take 1 [facility] rs 60 mg 3-15 capsule by it[facility] of capsule 00:00: mouth in [place] the Medical morning. [facility] DULoxetine 2023-0 Yes 60mg Take 1 [facility] rs 60 mg 3-15 capsule by it[facility] of capsule 00:00: mouth in [place] the Medical morning. [facility] DULoxetine 2023-0 Yes 60mg Take 1 [facility] rs 60 mg 3-15 capsule by it[facility] of capsule 00:00: mouth in [place] the Medical morning. [facility] DULoxetine 2023-0 Yes 60mg Take 1 [facility] rs 60 mg 3-15 capsule by it[facility] of capsule 00:00: mouth in [place] the Medical morning. [facility] DULoxetine 2023-0 Yes 60mg Take 1 [facility] rs 60 mg 3-15 capsule by it[facility] of capsule 00:00: mouth in [place] the Medical morning. [facility] DULoxetine 2023-0 Yes 60mg Take 1 [facility] rs 60 mg 3-15 capsule by it[facility] of capsule 00:00: mouth in [place] the Medical morning. [facility] DULoxetine 2023-0 Yes 60mg Take 1 [facility] rs 60 mg 3-15 capsule by it[facility] of capsule 00:00: mouth in [place] the Medical morning. [facility] DULoxetine 2023-0 Yes 60mg Take 1 [facility] rs 60 mg 3-15 capsule by it[facility] of capsule 00:00: mouth in [place] 00 the Medical morning. [place] DULoxetine 2022-0 Yes 60mg Take 1 [facility] rs 60 mg 3-15 capsule by it[facility] of capsule 00:00: mouth in [place] 00 the Medical morning. [facility] gabapentin 2022-0 2023- No TAKE 1 [facility] 300 mg 3-15 07-13 CAPSULE BY ity of capsule 00:00: 00:00 MOUTH ONCE [place] 00 :00 DAILY Medical NEEDED FOR [place] PANIC ATTACKS dexmethylph 2022-0 Yes TAKE 1 [facility] ers enidate 20 3-14 CAPSULE BY ity of mg 24 hr 00:00: MOUTH [place] capsule 00 EVERY DAY Medical IN THE [place] MORNING FOR 30 DAYS dexmethylph 2022-0 Yes TAKE 1 [facility] enidate 20 3-14 CAPSULE BY ity of mg 24 hr 00:00: MOUTH [place] capsule 00 EVERY DAY Medical IN THE [place] MORNING FOR 30 DAYS dexmethylph 2022-0 Yes TAKE 1 [facility] enidate 20 3-14 CAPSULE BY ity of mg 24 hr 00:00: MOUTH [place] capsule 00 EVERY DAY Medical IN THE [place] MORNING FOR 30 DAYS dexmethylph 2022-0 Yes TAKE 1 [facility] enidate 20 3-14 CAPSULE BY ity of mg 24 hr 00:00: MOUTH [place] capsule 00 EVERY DAY Medical IN THE [place] MORNING FOR 30 DAYS dexmethylph 2022-0 Yes TAKE 1 [facility] enidate 20 3-14 CAPSULE BY ity of mg 24 hr 00:00: MOUTH [place] capsule 00 EVERY DAY Medical IN THE [place] MORNING FOR 30 DAYS dexmethylph 2022-0 Yes TAKE 1 [facility] enidate 20 3-14 CAPSULE BY ity of mg 24 hr 00:00: MOUTH [place] capsule 00 EVERY DAY Medical IN THE [place] MORNING FOR 30 DAYS dexmethylph 2022-0 Yes TAKE 1 [facility] enidate 20 3-14 CAPSULE BY ity of mg 24 hr 00:00: MOUTH [place] capsule 00 EVERY DAY Medical IN THE [place] MORNING FOR 30 DAYS dexmethylph 2022-0 Yes TAKE 1 [facility] enidate 20 3-14 CAPSULE BY ity of mg 24 hr 00:00: MOUTH [place] capsule 00 EVERY DAY Medical IN THE [place] MORNING FOR 30 DAYS dexmethylph 2022-0 Yes TAKE 1 [facility] enidate 20 3-14 CAPSULE BY ity of mg 24 hr 00:00: MOUTH [place] capsule 00 EVERY DAY Medical IN THE [facility] FOR 30 DAYS dexmethylph 2023-0 Yes TAKE 1 [facility] ers enidate 20 3-14 CAPSULE BY ity of mg 24 hr 00:00: MOUTH [place] capsule 00 EVERY DAY Medical IN THE [place] MORNING FOR 30 DAYS dexmethylph 2023-0 Yes TAKE 1 [facility] enidate 20 3-14 CAPSULE BY ity of mg 24 hr 00:00: MOUTH [place] capsule 00 EVERY DAY Medical IN THE [place] MORNING FOR 30 DAYS dexmethylph 2023-0 Yes TAKE 1 [facility] enidate 20 3-14 CAPSULE BY ity of mg 24 hr 00:00: MOUTH [place] capsule 00 EVERY DAY Medical IN THE [facility] FOR 30 DAYS dexmethylph 3-0 Yes TAKE 1 [facility] enidate 20 3-14 CAPSULE BY ity of mg 24 hr 00:00: MOUTH [place] capsule 00 EVERY DAY Medical IN THE [facility] FOR 30 DAYS dexmethylph 3-0 Yes TAKE 1 [facility] ers enidate 20 3-14 CAPSULE BY ity of mg 24 hr 00:00: MOUTH [place] capsule 00 EVERY DAY Medical IN THE [facility] FOR 30 DAYS dexmethylph 3-0 Yes TAKE 1 [facility] ers enidate 20 3-14 CAPSULE BY ity of mg 24 hr 00:00: MOUTH [place] capsule 00 EVERY DAY Medical IN THE [facility] FOR 30 DAYS dexmethylph 2023-0 Yes TAKE 1 [facility] ers enidate 20 3-14 CAPSULE BY ity of mg 24 hr 00:00: MOUTH [place] capsule 00 EVERY DAY Medical IN THE [facility] FOR 30 DAYS dexmethylph 2023-0 Yes TAKE 1 [facility] ers enidate 20 3-14 CAPSULE BY ity of mg 24 hr 00:00: MOUTH [place] capsule 00 EVERY DAY Medical IN THE [facility] FOR 30 DAYS dexmethylph 2023-0 Yes TAKE 1 [facility] ers enidate 20 3-14 CAPSULE BY ity of mg 24 hr 00:00: MOUTH [place] capsule 00 EVERY DAY Medical IN THE [place] MORNING FOR 30 DAYS dexmethylph 2023-0 Yes TAKE 1 [facility] ers enidate 20 3-14 CAPSULE BY ity of mg 24 hr 00:00: MOUTH [place] capsule 00 EVERY DAY Medical IN THE [facility] FOR 30 DAYS dexmethylph 2023-0 Yes TAKE 1 [facility] ers enidate 20 3-14 CAPSULE BY ity of mg 24 hr 00:00: MOUTH [place] capsule 00 EVERY DAY Medical IN THE [facility] FOR 30 DAYS dexmethylph 2023-0 Yes TAKE 1 [facility] ers enidate 20 3-14 CAPSULE BY ity of mg 24 hr 00:00: MOUTH [place] capsule 00 EVERY DAY Medical IN THE [place] MORNING FOR 30 DAYS dexmethylph 2022-0 Yes TAKE 1 [facility] ers enidate 20 3-14 CAPSULE BY ity of mg 24 hr 00:00: MOUTH [place] capsule 00 EVERY DAY Medical IN THE [place] MORNING FOR 30 DAYS dexmethylph 2022-0 Yes TAKE 1 [facility] ers enidate 20 3-14 CAPSULE BY ity of mg 24 hr 00:00: MOUTH [place] capsule 00 EVERY DAY Medical IN THE [facility] FOR 30 DAYS dexmethylph 2022-0 Yes TAKE 1 [facility] ers enidate 20 3-14 CAPSULE BY ity of mg 24 hr 00:00: MOUTH [place] capsule 00 EVERY DAY Medical IN THE [facility] FOR 30 DAYS dexmethylph 2022-0 Yes TAKE 1 [facility] ers enidate 20 3-14 CAPSULE BY ity of mg 24 hr 00:00: MOUTH [place] capsule 00 EVERY DAY Medical IN THE [facility] FOR 30 DAYS dexmethylph 2022-0 Yes TAKE 1 [facility] ers enidate 20 3-14 CAPSULE BY ity of mg 24 hr 00:00: MOUTH [place] capsule 00 EVERY DAY Medical IN THE [facility] FOR 30 DAYS dexmethylph 2022-0 Yes TAKE 1 [facility] ers enidate 20 3-14 CAPSULE BY ity of mg 24 hr 00:00: MOUTH [place] capsule 00 EVERY DAY Medical IN THE [facility] FOR 30 DAYS dexmethylph 2022-0 Yes TAKE 1 [facility] ers enidate 20 3-14 CAPSULE BY ity of mg 24 hr 00:00: MOUTH [place] capsule 00 EVERY DAY Medical IN THE [facility] FOR 30 DAYS dexmethylph 2022-0 Yes TAKE 1 [facility] ers enidate 20 3-14 CAPSULE BY ity of mg 24 hr 00:00: MOUTH [place] capsule 00 EVERY DAY Medical IN THE [facility] FOR 30 DAYS dexmethylph 2022-0 Yes TAKE 1 [facility] ers enidate 20 3-14 CAPSULE BY ity of mg 24 hr 00:00: MOUTH [place] capsule 00 EVERY DAY Medical IN THE [place] MORNING FOR 30 DAYS dexmethylph 2022-0 Yes TAKE 1 [facility] ers enidate 20 3-14 CAPSULE BY ity of mg 24 hr 00:00: MOUTH [place] capsule 00 EVERY DAY Medical IN THE [facility] FOR 30 DAYS dexmethylph 2022-0 Yes TAKE 1 [facility] ers enidate 20 3-14 CAPSULE BY ity of mg 24 hr 00:00: MOUTH [place] capsule 00 EVERY DAY Medical IN THE [facility] FOR 30 DAYS dexmethylph 3-0 Yes TAKE 1 [facility] ers enidate 20 3-14 CAPSULE BY ity of mg 24 hr 00:00: MOUTH [place] capsule 00 EVERY DAY Medical IN THE [place] MORNING FOR 30 DAYS dexmethylph 3-0 Yes TAKE 1 [facility] ers enidate 20 3-14 CAPSULE BY ity of mg 24 hr 00:00: MOUTH [place] capsule 00 EVERY DAY Medical IN THE [facility] FOR 30 DAYS dexmethylph 2022-0 Yes TAKE 1 [facility] ers enidate 20 3-14 CAPSULE BY ity of mg 24 hr 00:00: MOUTH [place] capsule 00 EVERY DAY Medical IN THE [facility] FOR 30 DAYS dexmethylph 2022-0 Yes TAKE 1 [facility] ers enidate 20 3-14 CAPSULE BY ity of mg 24 hr 00:00: MOUTH [place] capsule 00 EVERY DAY Medical IN THE [facility] FOR 30 DAYS dexmethylph 2022-0 Yes TAKE 1 [facility] ers enidate 20 3-14 CAPSULE BY ity of mg 24 hr 00:00: MOUTH [place] capsule 00 EVERY DAY Medical IN THE [facility] FOR 30 DAYS dexmethylph 3-0 Yes TAKE 1 [facility] ers enidate 20 3-14 CAPSULE BY ity of mg 24 hr 00:00: MOUTH [place] capsule 00 EVERY DAY Medical IN THE [facility] FOR 30 DAYS dexmethylph 3-0 Yes TAKE 1 [facility] ers enidate 20 3-14 CAPSULE BY ity of mg 24 hr 00:00: MOUTH [place] capsule 00 EVERY DAY Medical IN THE [facility] FOR 30 DAYS dexmethylph 3-0 Yes TAKE 1 [facility] ers enidate 20 3-14 CAPSULE BY ity of mg 24 hr 00:00: MOUTH [place] capsule 00 EVERY DAY Medical IN THE [facility] FOR 30 DAYS dexmethylph 3-0 Yes TAKE 1 [facility] ers enidate 20 3-14 CAPSULE BY ity of mg 24 hr 00:00: MOUTH [place] capsule 00 EVERY DAY Medical IN THE [facility] FOR 30 DAYS dexmethylph 2023-0 Yes TAKE 1 [facility] ers enidate 20 3-14 CAPSULE BY ity of mg 24 hr 00:00: MOUTH [place] capsule 00 EVERY DAY Medical IN THE [facility] FOR 30 DAYS dexmethylph 2023-0 Yes TAKE 1 [facility] ers enidate 20 3-14 CAPSULE BY ity of mg 24 hr 00:00: MOUTH [place] capsule 00 EVERY DAY Medical IN THE [facility] FOR 30 DAYS dexmethylph 3-0 Yes TAKE 1 [facility] ers enidate 20 3-14 CAPSULE BY ity of mg 24 hr 00:00: MOUTH [place] capsule 00 EVERY DAY Medical IN THE [facility] FOR 30 DAYS dexmethylph 3-0 Yes TAKE 1 [facility] ers enidate 20 3-14 CAPSULE BY ity of mg 24 hr 00:00: MOUTH [place] capsule 00 EVERY DAY Medical IN THE [place] MORNING FOR 30 DAYS dexmethylph 3-0 Yes TAKE 1 [facility] ers enidate 20 3-14 CAPSULE BY ity of mg 24 hr 00:00: MOUTH [place] capsule 00 EVERY DAY Medical IN THE [facility] FOR 30 DAYS dexmethylph 2022-0 Yes TAKE 1 [facility] ers enidate 20 3-14 CAPSULE BY ity of mg 24 hr 00:00: MOUTH [place] capsule 00 EVERY DAY Medical IN THE [facility] FOR 30 DAYS dexmethylph 2022-0 Yes TAKE 1 [facility] ers enidate 20 3-14 CAPSULE BY ity of mg 24 hr 00:00: MOUTH [place] capsule 00 EVERY DAY Medical IN THE [facility] FOR 30 DAYS dexmethylph 3-0 Yes TAKE 1 Univ ers enidate 20 3-14 CAPSULE BY ity of mg 24 hr 00:00: MOUTH [place] capsule 00 EVERY DAY Medical IN THE [facility] FOR 30 DAYS dexmethylph 3-0 Yes TAKE 1 Univ ers enidate 20 3-14 CAPSULE BY ity of mg 24 hr 00:00: MOUTH [place] capsule 00 EVERY DAY Medical IN THE [facility] FOR 30 DAYS dexmethylph 3-0 Yes TAKE 1 Univ ers enidate 20 3-14 CAPSULE BY ity of mg 24 hr 00:00: MOUTH [place] capsule 00 EVERY DAY Medical IN THE [facility] FOR 30 DAYS dexmethylph 3-0 Yes TAKE 1 Univ ers enidate 20 3-14 CAPSULE BY ity of mg 24 hr 00:00: MOUTH [place] capsule 00 EVERY DAY Medical IN THE [facility] FOR 30 DAYS dexmethylph 2023-0 Yes TAKE 1 Univ ers enidate 20 3-14 CAPSULE BY ity of mg 24 hr 00:00: MOUTH [place] capsule 00 EVERY DAY Medical IN THE [facility] FOR 30 DAYS dexmethylph 2023-0 Yes TAKE 1 Univ ers enidate 20 3-14 CAPSULE BY ity of mg 24 hr 00:00: MOUTH [place] capsule 00 EVERY DAY Medical IN THE [facility] FOR 30 DAYS dexmethylph 2023-0 Yes TAKE 1 Univ ers enidate 20 3-14 CAPSULE BY ity of mg 24 hr 00:00: MOUTH [place] capsule 00 EVERY DAY Medical IN THE [place] [facility] FOR 30 DAYS dexmethylph 2022-0 Yes TAKE 1 Univ ers enidate 20 3-14 CAPSULE BY ity of mg 24 hr 00:00: MOUTH [place] capsule 00 EVERY DAY Medical IN THE [place] [facility] FOR 30 DAYS dexmethylph 2022-0 Yes TAKE 1 Univ ers enidate 20 3-14 CAPSULE BY ity of mg 24 hr 00:00: MOUTH [place] capsule 00 EVERY DAY Medical IN THE [place] [facility] FOR 30 DAYS dexmethylph 2022-0 Yes TAKE 1 Univ ers enidate 20 3-14 CAPSULE BY ity of mg 24 hr 00:00: MOUTH [place] capsule 00 EVERY DAY Medical IN THE [place] [facility] FOR 30 DAYS dexmethylph 0 Yes TAKE 1 Univ ers enidate 20 3-14 CAPSULE BY ity of mg 24 hr 00:00: MOUTH [place] capsule 00 EVERY DAY Medical IN THE [facility] FOR 30 DAYS dexmethylph 2022-0 Yes TAKE 1 Univ ers enidate 20 3-14 CAPSULE BY ity of mg 24 hr 00:00: MOUTH [place] capsule 00 EVERY DAY Medical IN THE [facility] FOR 30 DAYS dexmethylph 2022-0 Yes TAKE 1 Univ ers enidate 20 3-14 CAPSULE BY ity of mg 24 hr 00:00: MOUTH [place] capsule 00 EVERY DAY Medical IN THE [place] [facility]ORN[facility] FOR 30 DAYS dexmethylph 2022-0 Yes TAKE 1 Univ ers enidate 20 3-14 CAPSULE BY ity of mg 24 hr 00:00: MOUTH [place] capsule 00 EVERY DAY Medical IN THE [facility] FOR 30 DAYS ketorolac 2021-03- No 30mg 30 mg, Unive rs (TORADOL) 04-20 Slow IV ity of injection 00:15: 23:30 Push, [place] 30 mg 00 :00 ONCE, 1 Medical dose, On [facility] 02/16/22 at 1815, SHAYNA FENTanyl PF 2021-03- No 75ug 75 mcg, Un [facility] (SUBLIMAZE 04-19 Slow IV ity o f (PF)) 23:15: 22:46 Push, [place] injection 00 :00 ONCE, 1 Medical 75 mcg dose, On [facility] 02/16/22 at 1715, STAT iopamidol 2021-03- No [id number] 74mL 74 mL, U nivers (ISOVUE 2-11 12-11 Intravenou ity o f 370-500 mL) 21:00: 21:15 s, ONCE, 1 [place] injection 00 :00 dose, On Medica l 74 mL [place] [facility] 02/16/22 at 1515, Routine metoclopram 2021-03 Yes [id number] 10mg Take 1 [facility] arabella HCl 10 2-11 tablet by ity of mg tablet 00:00: mouth [place] 00 every 6 Medical (six) Branch hours. metoclopram 2021-03 Yes [id number] 10mg Take 1 [facility] [place] HCl 10 2-11 tablet by ity of mg tablet 00:00: mouth [place] 00 every 6 Medical (six) Branch hours. metoclopram 2021-03 Yes [id number] 10mg Take 1 [facility] [place] HCl 10 2-11 tablet by ity of mg tablet 00:00: mouth [place] 00 every 6 Medical (six) Branch hours. metoclopram 2021-03 Yes [id number] 10mg Take 1 [facility] [place] HCl 10 2-11 tablet by ity of mg tablet 00:00: mouth [place] 00 every 6 Medical (six) Branch hours. metoclopram 2021-03 Yes [id number] 10mg Take 1 [facility] [place] HCl 10 2-11 tablet by ity of mg tablet 00:00: mouth [place] 00 every 6 Medical (six) Branch hours. metoclopram 2021-03 Yes [id number] 10mg Take 1 [facility] [place] HCl 10 2-11 tablet by ity of mg tablet 00:00: mouth [place] 00 every 6 Medical (six) Branch hours. metoclopram 2021-03 Yes [id number] 10mg Take 1 [facility] [place] HCl 10 2-11 tablet by ity of mg tablet 00:00: mouth [place] 00 every 6 Medical (six) Branch hours. metoclopram 2021-03 Yes [id number] 10mg Take 1 [facility] [place] HCl 10 2-11 tablet by ity of mg tablet 00:00: mouth [place] 00 every 6 Medical (six) Branch hours. metoclopram 2021-03- No [id number] 10mg Take 1 [facility] [place] HCl 10 [...] mg 00 First dose Medical on Thu [place] 02/12/22 at 0900, Until Discontinu ed, Routine docusate 2021-03 Yes [id number] 200mg Take 2 U nivers 100 mg 2-07 capsules ity of capsule 00:00: by mouth [place] 00 once daily Medical as needed Branch for Constipati on. ferrous 2021-03 Yes [id number] 325mg Take 1 [facility] [place] sulfate 325 2-07 tablet by ity of mg (65 mg 00:00: mouth [place] iron) 00 every Medical tablet other day. Branch ibuprofen 2021-03 Yes [id number] 600mg Take 1 Univers 600 mg 2-07 tablet by ity of tablet 00:00: mouth [place] 00 every 6 Medical (six) Branch hours as needed (Pain). Take with food or milk. polyethylen 2021-03 Yes 17g 17 g, Unive rs e glycol 2-07 Oral, ity of 3350 powder 00:00: DAILY, [place] 17 g 00 First dose Medical on Thu [place] 02/11/22 at 1800, Until Discontinu ed, Routine docusate 2021-03 Yes [id number] 200mg Take 2 U nivers 100 mg 2-07 capsules ity of capsule 00:00: by mouth [place] 00 once daily Medical as needed Branch for Constipati on. ferrous 2021-03 Yes [id number] 325mg Take 1 [facility] [place] sulfate 325 2-07 tablet by ity of mg (65 mg 00:00: mouth [place] iron) 00 every Medical tablet other day. Branch ibuprofen 2021-03 Yes [id number] 600mg Take 1 [facility] 600 mg 2-07 tablet by ity of tablet 00:00: mouth [place] 00 every 6 Medical (six) Branch hours as needed (Pain). Take with food or milk. docusate 2021-03 Yes [id number] 200mg Take 2 U nivers 100 mg 2-07 capsules ity of capsule 00:00: by mouth [place] 00 once daily Medical as needed Branch for Constipati on. ferrous 2021-03 Yes [id number] 325mg Take 1 [facility] [place] sulfate 325 2-07 tablet by ity of mg (65 mg 00:00: mouth [place] iron) 00 every Medical tablet other day. Branch ibuprofen 2021-03 Yes [id number] 600mg Take 1 Univers 600 mg 2-07 tablet by ity of tablet 00:00: mouth [place] 00 every 6 Medical (six) Branch hours as needed (Pain). Take with food or milk. docusate 2021-03 Yes [id number] 200mg Take 2 U nivers 100 mg 2-07 capsules ity of capsule 00:00: by mouth [place] 00 once daily Medical as needed Branch for Constipati on. ferrous 2021-03 Yes [id number] 325mg Take 1 [facility] [place] sulfate 325 2-07 tablet by ity of mg (65 mg 00:00: mouth [place] iron) 00 every Medical tablet other day. Branch ibuprofen 2021-03 Yes [id number] 600mg Take 1 Univers 600 mg 2-07 tablet by ity of tablet 00:00: mouth [place] 00 every 6 Medical (six) Branch hours as needed (Pain). Take with food or milk. docusate 2021-03 Yes [id number] 200mg Take 2 U nivers 100 mg 2-07 capsules ity of capsule 00:00: by mouth [place] 00 once daily Medical as needed Branch for Constipati on. ferrous 2021-03 Yes [id number] 325mg Take 1 [facility] [place] sulfate 325 2-07 tablet by ity of mg (65 mg 00:00: mouth [place] iron) 00 every Medical tablet other day. Branch ibuprofen 2021-03 Yes [id number] 600mg Take 1 Univers 600 mg 2-07 tablet by ity of tablet 00:00: mouth [place] 00 every 6 Medical (six) Branch hours as needed (Pain). Take with food or milk. docusate 2021-03 Yes [id number] 200mg Take 2 U nivers 100 mg 2-07 capsules ity of capsule 00:00: by mouth [place] 00 once daily Medical as needed Branch for Constipati on. ferrous 2021-03 Yes [id number] 325mg Take 1 [facility] [place] sulfate 325 2-07 tablet by ity of mg (65 mg 00:00: mouth [place] iron) 00 every Medical tablet other day. Branch ibuprofen 2021-03 Yes [id number] 600mg Take 1 Univers 600 mg 2-07 tablet by ity of tablet 00:00: mouth [place] 00 every 6 Medical (six) Branch hours as needed (Pain). Take with food or milk. docusate 2021-03 Yes [id number] 200mg Take 2 U nivers 100 mg 2-07 capsules ity of capsule 00:00: by mouth [place] 00 once daily Medical as needed Branch for Constipati on. ferrous 2021-03 Yes [id number] 325mg Take 1 [facility] [place] sulfate 325 2-07 tablet by ity of mg (65 mg 00:00: mouth [place] iron) 00 every Medical tablet other day. Branch ibuprofen 2021-03 Yes [id number] 600mg Take 1 Univers 600 mg 2-07 tablet by ity of tablet 00:00: mouth [place] 00 every 6 Medical (six) Branch hours as needed (Pain). Take with food or milk. docusate 2021-03 Yes [id number] 200mg Take 2 U nivers 100 mg 2-07 capsules ity of capsule 00:00: by mouth [place] 00 once daily Medical as needed Branch for Constipati on. ferrous 2021-03 Yes [id number] 325mg Take 1 [facility] [place] sulfate 325 2-07 tablet by ity of mg (65 mg 00:00: mouth [place] iron) 00 every Medical tablet other day. Branch ibuprofen 2021-03 Yes [id number] 600mg Take 1 Univers 600 mg 2-07 tablet by ity of tablet 00:00: mouth [place] 00 every 6 Medical (six) Branch hours as needed (Pain). Take with food or milk. docusate 2021-03 Yes [id number] 200mg Take 2 U nivers 100 mg 2-07 capsules ity of capsule 00:00: by mouth [place] 00 once daily Medical as needed Branch for Constipati on. ferrous 2021-03 Yes [id number] 325mg Take 1 [facility] [place] sulfate 325 2-07 tablet by ity of mg (65 mg 00:00: mouth [place] iron) 00 every Medical tablet other day. Branch ibuprofen 2021-03 Yes [id number] 600mg Take 1 [facility] 600 mg 2-07 tablet by ity of tablet 00:00: mouth [place] 00 every 6 Medical (six) Branch hours as needed (Pain). Take with food or milk. docusate 2021-03 Yes [id number] 200mg Take 2 U nivers 100 mg 2-07 capsules ity of capsule 00:00: by mouth [place] 00 once daily Medical as needed Branch for Constipati on. ferrous 2021-03 Yes [id number] 325mg Take 1 [facility] [place] sulfate 325 2-07 tablet by ity of mg (65 mg 00:00: mouth [place] iron) 00 every Medical tablet other day. Branch ibuprofen 2021-03 Yes [id number] 600mg Take 1 Univers 600 mg 2-07 tablet by ity of tablet 00:00: mouth [place] 00 every 6 Medical (six) Branch hours as needed (Pain). Take with food or milk. docusate 2021-03- No [id number] 200mg Take 2 Univers 100 mg 04-15 capsules ity of capsule 00:00: 00:00 by mouth [place] 00 :00 once daily Medical as needed Branch for Constipati on. ferrous 2021-03- No [id number] 325mg Take 1 U nivers sulfate 325 04-15 tablet by it y of mg (65 mg 00:00: 00:00 mouth [place] iron) 00 :00 every Medical tablet other day. Branch ibuprofen 2021-03- No [id number] 600mg Take 1 Univers 600 mg 04-15 tablet by ity of tablet 00:00: 00:00 mouth [place] 00 :00 every 6 Medical (six) Branch hours as needed (Pain). Take with food or milk. foLIC acid 2021-03- No [id number] 1mg Take 1 Univers 1 mg tablet 04-15- tablet by it y of 00:00: 05:59 mouth in [place] 00 :00 the Medical morning Branch for 90 days. foLIC acid 2021-03- No [id number] 1mg Take 1 Univers 1 mg tablet 04-15- tablet by it y of 00:00: 05:59 mouth in [place] 00 :00 the Medical morning Branch for 90 days. foLIC acid 2021-03- No [id number] 1mg Take 1 Univers 1 mg tablet 04-15- tablet by it y of 00:00: 05:59 mouth in [place] 00 :00 the Medical morning Branch for 90 days. foLIC acid 2021-03- No [id number] 1mg Take 1 Univers 1 mg tablet 04-15- tablet by it y of 00:00: 05:59 mouth in [place] 00 :00 the Medical morning Branch for 90 days. foLIC acid 2021-03- No [id number] 1mg Take 1 Univers 1 mg tablet 04-15- tablet by it y of 00:00: 05:59 mouth in [place] 00 :00 the Medical morning Branch for 90 days. foLIC acid 2021-03- No [id number] 1mg Take 1 Univers 1 mg tablet 04-15-08 tablet by it y of 00:00: 05:59 mouth in [place] 00 :00 the Medical morning Branch for 90 days. foLIC acid 2021-03- No [id number] 1mg Take 1 Univers 1 mg tablet 04-15 tablet by it y of 00:00: 05:59 mouth in [place] 00 :00 the Medical morning Branch for 90 days. foLIC acid 2021-03- No [id number] 1mg Take 1 Univers 1 mg tablet 04-15 tablet by it y of 00:00: 05:59 mouth in [place] 00 :00 the Medical morning Branch for 90 days. foLIC acid 2021-03- No [id number] 1mg Take 1 Univers 1 mg tablet 04-15- tablet by it y of 00:00: 05:59 mouth in [place] 00 :00 the Medical morning Branch for 90 days. ibuprofen 2021-03 Yes 600mg 600 mg, Univ ers (IBU) 2-06 Oral, ity of tablet 600 19:22: Q6HPRN, [place] mg 45 Starting Medical on [facility] 02/11/22 at 1322, Until Discontinu ed, Routine, Pain (scale 4-6) acetaminoph 2021-03 Yes 650mg 650 mg, [facility] en 2-06 Oral, ity of (TYLENOL) 19:22: Q6HPRN, [place] tablet 650 45 Starting Medic al mg on [facility] Branch 02/11/22 at 1322, Until Discontinu ed, Routine, Pain (scale 1-3) diphenhydrA 2021-03 Yes 25mg 25 mg, Univ ers MINE 2-06 Oral, ity of (BENADRYL) 19:22: Q6HPRN, [place] tablet 25 45 Starting Medica l mg on [facility] Branch 02/11/22 at 1322, Until Discontinu ed, Routine, Sleep, Itching ondansetron 2021-03 Yes 4mg 4 mg, Slow Univers (ZOFRAN 2-06 IV Push, ity of (PF)) 19:22: Q8HPRN, [place] injection 4 45 Starting Medi tressa mg on Branch 02/11/22 at 1322, Until Discontinu [...] Medica l 400 mg/5 mL on Thu [place] suspension 02/11/22 at 30 mL 1322, Until Discontinu ed, Routine, Constipati on benzocaine- 2021-03 Yes Topical, [facility] [place] menthol 2-06 PRN, ity of (DERMOPLAST 19:22: Starting [place] ) 20-0.5 % 44 on Thu Medical topical 02/11/22 at Branch spray 1322, Until Discontinu ed, Routine, Perineum discomfort oxytocin 2021-03- No 300mL/h 300 mL/hr, Univers (PITOCIN) 2 12-06 IV ity of 30 units in 16:59: 19:22 Infusion, [place] NS 500 mL 29 :49 SEE-INSTRU Medi tressa IV infusion CTIONS, Branc h Starting on Thu02/11/[address] at 300 mL/hr for 1 hr then 150 mL/hr for 1 hr. & nbsp; For post delivery uterotonic
PIB 2021-03- No Epidural, Univers ropivacaine 04-14 CONTINUOUS i ty of 0.2 % 16:30: 18:20 PRN, [place] (NAROPIN 00 :56 Starting Medical (PF)) on Tue Branch epidural 02/11/22 at infusion 1030, Until 02/11/22 at 1220, Routine, Intra-op bupivacaine 2021-03 Caudal Uni vers (preserv 04-1406 Block, ity of free) 15:33: 18:20 ONCE INTRA [place] (SENSORCAIN 00 :56 PROCEDURE, Me dical E MPF) 0.25 Starting Bran ch % (2.5 on Tue mg/mL) 02/11/22 at injection 0933, Until 02/11/22 at 1220, Routine, Intra-op lamoTRIgine 2021-03 Yes 75mg 75 mg, Univ ers (LAMICTAL) 04-14 Oral, ity of tablet 75 13:30: QAM-0730, [place] mg 00 First dose Medical on e Branch 02/11/22 at 0730, Until Discontinu ed, Routine ondansetron 2021-03 No 4mg 4 mg, Slow Univers (ZOFRAN 04-14 IV Push, ity of (PF)) 12:40: 12:44 ONCE, On [place] injection 4 00 :00 Tue Medical mg 02/11/22 at Branch 0645, For 1 dose
Do ses of ondansetro n 16 mg and above need to be administer ed via IV piggyback. For Dose >=24mg ECG monitoring is advisable.
ropivacaine 2021-03 Epidural, Univers 0.2 % 04-1406 CONTINUOUS ity of (NAROPIN 06:45: 18:20 PRN, [place] (PF)) 00 :56 Starting Medical epidural on Tue Branch infusion 02/11/22 at 0045, Until Discontinu ed, Routine, Intra-op lactated 2021-03 No 500mL at 999 Unive rs ringers IV 04-1406 mL/hr, 500 it y of infusion 06:45: 06:16 mL, IV [place] 500 mL 00 :00 Infusion, Medical ONCE, 1 Branch dose, On 02/11/22 at 0045, Routine lidocaine-e 2021-03- No Intraderma Univers pinephrine 04-14- l, ONCE ity o f (XYLOCAINE 06:40: 18:20 INTRA [place] W/EPINEPHRI 00 :56 PROCEDURE, Me dical NE) 1.5 Starting Branch %-1:200,000 on Tu injection 02/11/22 at 0040, Until Discontinu ed, Routine, Intra-op sodium 2021-03- No 30mL 30 mL, Univers citrate-cit 04-14 Oral, ity of keila acid 05:55: 06:16 PRE-PROCED [place] (BICITRA) 08 :00 URE ONCE, Medic al 500-334 1 dose, Branch mg/5 mL Starting solution 30 on [facility] mL 02/10/22 at 2355, Until Thu02/11/22 at 0016, Routine, Surgery/Pr ocedure lamoTRIgine 2021-03 Yes 100mg 100 mg, Un [facility] (LAMICTAL) 206 Oral, QHS, ity of tablet 100 03:00: First dose [place] mg 00 on [facility] Medical 02/10/22 at Branch 2100, Until Discontinu ed, Routine proMETHazin 2021-03- No 25mg 25 mg, IV Univers e 04-14 Piggyback, ity of (PHENERGAN) 00:45: 00:59 at 200 [place] 25 mg in [place] 00 :00 mL/hr Medical 50 mL IV Administer Branc h piggyback over 15 (CNR) Minutes, ONCE, 1 dose, On [facility] 02/10/22 at 1845, Routine butorphanol 2021-03- No 1mg 1 mg, Univ ers (STADOL) 04-14 Intravenou ity of injection 1 00:45: 00:09 s, ONCE, 1 [place] mg 00 :00 dose, On [facility] 02/10/22 at 1845, Routine oxytocin 2021-03- No 2mU/min at 2-40 Un [facility] (PITOCIN) 04-14- mL/hr, IV ity of 30 units in 00:02: 19:22 Infusion, [place] NS 500 mL 47 :49 TITRATE, Medica l IV infusion Starting Bran ch on Thu02/10/22 at 1802, Until Thu02/11/22 at 1322, SHAYNA [id number] IV 2021-03 No 1000mL at 1-125 U nivers infusion 04-13 12-06 mL/hr, IV ity o f 1,000 mL 22:58: 19:22 Infusion, [place] as 45 :49 TITRATE, Medical Starting Branch on Thu02/10/22 at 1658, Until Thu02/11/22 at 1322, Routine lamoTRIgine 2021-03- No 100mg Take 100 Univers 100 mg 2-05 12-05 mg by ity of tablet 17:04: 00:00 mouth at [place] 29 :[address] lamoTRIgine 2021-03- No 100mg Take 100 Univers 100 mg 2-05 12-05 mg by ity of tablet 17:04: 00:00 mouth at [place] 29 :[address] 2021-03 Yes 1{tbl} 1 tablet, Un [...] On Thu01/30/22 at 1645, Routine NaCl 0.9% 2021-03- No [...] g dose, On Thu01/30/22 at 1645, Routine lamoTRIgine 2021-03 Yes 100mg Take 100 U nivers (LAMICTAL) 1-24 mg by ity of 100 mg 18:07: mouth at [place] tablet [address] Branch lamoTRIgine 2021-03 Yes 100mg Take 100 U nivers (LAMICTAL) 1-24 mg by ity of 100 mg 18:07: mouth at [place] tablet [address] Branch lamoTRIgine 2021-03 Yes 100mg Take 100 U nivers (LAMICTAL) 1-24 mg by ity of 100 mg 18:07: mouth at [place] tablet [address] lamoTRIgine 2021-03 Yes 100mg Take 100 U nivers (LAMICTAL) 1-24 mg by ity of 100 mg 18:07: mouth at [place] tablet [address] lamoTRIgine 2021-03 Yes 100mg Take 100 U nivers (LAMICTAL) 1-24 mg by ity of 100 mg 18:07: mouth at [place] tablet [address] proMETHazin 2021-03 Yes [id number] 25mg Take 1 Univers e 25 mg 1-15 tablet by ity of tablet 00:00: mouth [place] 00 every 4 Medical (four) Branch hours as needed for Nausea and Vomiting (N/V). proMETHazin 2021-03 Yes [id number] 25mg Take 1 Univers e 25 mg 1-15 tablet by ity of tablet 00:00: mouth [place] 00 every 4 Medical (four) Branch hours as needed for Nausea and Vomiting (N/V). proMETHazin 2021-03 Yes [id number] 25mg Take 1 Univers e 25 mg 1-15 tablet by ity of tablet 00:00: mouth [place] 00 every 4 Medical (four) Branch hours as needed for Nausea and Vomiting (N/V). proMETHazin 2021-03 Yes [id number] 25mg Take 1 Univers e 25 mg 1-15 tablet by ity of tablet 00:00: mouth [place] 00 every 4 Medical (four) Branch hours as needed for Nausea and Vomiting (N/V). proMETHazin 2021-03 Yes [id number] 25mg Take 1 Univers e 25 mg 1-15 tablet by ity of tablet 00:00: mouth [place] 00 every 4 Medical (four) Branch hours as needed for Nausea and Vomiting (N/V). proMETHazin 2021-03 Yes [id number] 25mg Take 1 Univers e 25 mg 1-15 tablet by ity of tablet 00:00: mouth [place] 00 every 4 Medical (four) Branch hours as needed for Nausea and Vomiting (N/V). proMETHazin 2021-03 Yes [id number] 25mg Take 1 Univers e 25 mg 1-15 tablet by ity of tablet 00:00: mouth [place] 00 every 4 Medical (four) Branch hours as needed for Nausea and Vomiting (N/V). proMETHazin 2021-03 Yes [id number] 25mg Take 1 Univers e 25 mg 1-15 tablet by ity of tablet 00:00: mouth [place] 00 every 4 Medical (four) Branch hours as needed for Nausea and Vomiting (N/V). proMETHazin 2021-03 Yes [id number] 25mg Take 1 Univers e 25 mg 1-15 tablet by ity of tablet 00:00: mouth [place] 00 every 4 Medical (four) Branch hours as needed for Nausea and Vomiting (N/V). proMETHazin 2021-03- No [id number] 25mg Take 1 Univers e 25 mg 1-15 12-05 tablet by ity of tablet 00:00: 00:00 mouth [place] 00 :00 every 4 Medical (four) Branch hours as needed for Nausea and Vomiting (N/V). proMETHazin 2021-03- No [id number] 25mg Take 1 Univers e 25 mg 1-15 12-05 tablet by ity of tablet 00:00: 00:00 mouth [place] 00 :00 every 4 Medical (four) Branch hours as needed for Nausea and Vomiting (N/V). lamoTRIgine 2021-03 Yes [id number] 75mg Take 3 Univers 25 mg 1-10 tablets by ity of tablet 00:00: mouth [place] 00 every Medical morning. Branch lamoTRIgine 2021-03 Yes [id number] 100mg Take 1 Univers (LAMICTAL) 1-10 tablet by ity of 100 mg 00:00: mouth at [place] tablet 00 bedtime. Medical Branch lamoTRIgine 2021-03 Yes [id number] 75mg Take 3 Univers 25 mg 1-10 tablets by ity of tablet 00:00: mouth [place] 00 every Medical morning. Branch lamoTRIgine 2021-03 Yes [id number] 100mg Take 1 Univers (LAMICTAL) 1-10 tablet by ity of 100 mg 00:00: mouth at [place] tablet 00 bedtime. Medical Branch lamoTRIgine 2021-03 Yes [id number] 75mg Take 3 Univers 25 mg 1-10 tablets by ity of tablet 00:00: mouth [place] 00 every Medical morning. Branch lamoTRIgine 2021-03 Yes [id number] 100mg Take 1 Univers (LAMICTAL) 1-10 tablet by ity of 100 mg 00:00: mouth at [place] tablet 00 bedtime. Medical Branch lamoTRIgine 2021-03 Yes [id number] 75mg Take 3 Univers 25 mg 1-10 tablets by ity of tablet 00:00: mouth [place] 00 every Medical morning. Branch lamoTRIgine 2021-03 Yes [id number] 100mg Take 1 Univers (LAMICTAL) 1-10 tablet by ity of 100 mg 00:00: mouth at [place] tablet 00 bedtime. Medical Branch lamoTRIgine 2021-03 Yes [id number] 75mg Take 3 Univers 25 mg 1-10 tablets by ity of tablet 00:00: mouth [place] 00 every Medical morning. Branch lamoTRIgine 2021-03 Yes [id number] 100mg Take 1 Univers (LAMICTAL) 1-10 tablet by ity of 100 mg 00:00: mouth at [place] tablet 00 bedtime. Medical Branch lamoTRIgine 2021-03 Yes [id number] 75mg Take 3 Univers 25 mg 1-10 tablets by ity of tablet 00:00: mouth [place] 00 every Medical morning. Branch lamoTRIgine 2021-03 Yes [id number] 100mg Take 1 Univers (LAMICTAL) 1-10 tablet by ity of 100 mg 00:00: mouth at [place] tablet 00 bedtime. Medical Branch lamoTRIgine 2021-03 Yes [id number] 75mg Take 3 Univers 25 mg 1-10 tablets by ity of tablet 00:00: mouth [place] 00 every Medical morning. Branch lamoTRIgine 2021-03 Yes [id number] 100mg Take 1 Univers (LAMICTAL) 1-10 tablet by ity of 100 mg 00:00: mouth at [place] tablet 00 bedtime. Medical Branch lamoTRIgine 2021-03 Yes [id number] 75mg Take 3 Univers 25 mg 1-10 tablets by ity of tablet 00:00: mouth [place] 00 every Medical morning. Branch lamoTRIgine 2021-03 Yes [id number] 100mg Take 1 Univers (LAMICTAL) 1-10 tablet by ity of 100 mg 00:00: mouth at [place] tablet 00 bedtime. Medical Branch lamoTRIgine 2021-03 Yes [id number] 75mg Take 3 Univers 25 mg 1-10 tablets by ity of tablet 00:00: mouth [place] 00 every Medical morning. Branch lamoTRIgine 2021-03 Yes [id number] 100mg Take 1 Univers (LAMICTAL) 1-10 tablet by ity of 100 mg 00:00: mouth at [place] tablet 00 bedtime. Medical Branch lamoTRIgine 2021-03 Yes [id number] 75mg Take 3 Univers 25 mg 1-10 tablets by ity of tablet 00:00: mouth [place] 00 every Medical morning. Branch lamoTRIgine 2021-03 Yes [id number] 100mg Take 1 Univers (LAMICTAL) 1-10 tablet by ity of 100 mg 00:00: mouth at [place] tablet 00 bedtime. Medical Branch lamoTRIgine 2021-03 Yes [id number] 75mg Take 3 Univers 25 mg 1-10 tablets by ity of tablet 00:00: mouth [place] 00 every Medical morning. Branch lamoTRIgine 2021-03 Yes [id number] 100mg Take 1 Univers (LAMICTAL) 1-10 tablet by ity of 100 mg 00:00: mouth at [place] tablet 00 bedtime. Medical Branch lamoTRIgine 2021-03 Yes [id number] 75mg Take 3 Univers 25 mg 1-10 tablets by ity of tablet 00:00: mouth [place] 00 every Medical morning. Branch lamoTRIgine 2021-03 Yes [id number] 100mg Take 1 Univers (LAMICTAL) 1-10 tablet by ity of 100 mg 00:00: mouth at [place] tablet 00 bedtime. Medical Branch lamoTRIgine 2021-03 Yes [id number] 75mg Take 3 Univers 25 mg 1-10 tablets by ity of tablet 00:00: mouth [place] 00 every Medical morning. Branch lamoTRIgine 2021-03 Yes [id number] 100mg Take 1 Univers (LAMICTAL) 1-10 tablet by ity of 100 mg 00:00: mouth at [place] tablet 00 bedtime. Medical Branch lamoTRIgine 2021-03 Yes [id number] 75mg Take 3 Univers 25 mg 1-10 tablets by ity of tablet 00:00: mouth [place] 00 every Medical morning. Branch lamoTRIgine 2021-03 Yes [id number] 100mg Take 1 Univers (LAMICTAL) 1-10 tablet by ity of 100 mg 00:00: mouth at [place] tablet 00 bedtime. [facility] Branch lamoTRIgine 2021-03 Yes [id number] 75mg Take 3 [facility] 25 mg 1-10 tablets by [facility]y of tablet 00:00: mouth [place] 00 every Medical morning. Branch lamoTRIgine 2021-03 Yes [id number] 100mg Take 1 [facility] (LAMICTAL) 1-10 tablet by ity of 100 mg 00:00: mouth at [place] tablet 00 bedtime. [facility] lamoTRIgine 2021-03 Yes [id number] 75mg Take 3 [facility] 25 mg 1-10 tablets by [facility]y of tablet 00:00: mouth [place] 00 every Medical morning. Branch lamoTRIgine 2021-03 Yes [id number] 100mg Take 1 [facility] (LAMICTAL) 1-10 tablet by [facility]y of 100 mg 00:00: mouth at [place] tablet 00 bedtime. [facility] Branch lamoTRIgine 2021-03 Yes [id number] 75mg Take 3 [facility] 25 mg 1-10 tablets by [facility]y of tablet 00:00: mouth [place] 00 every Medical morning. Branch lamoTRIgine 2021-03 Yes [id number] 100mg Take 1 [facility] (LAMICTAL) 1-10 tablet by ity of 100 mg 00:00: mouth at [place] tablet 00 bedtime. [facility] lamoTRIgine 2021-03 Yes [id number] 75mg Take 3 [facility] 25 mg 1-10 tablets by ity of tablet 00:00: mouth [place] 00 every Medical morning. Branch lamoTRIgine 2021-03 Yes [id number] 100mg Take 1 [facility] (LAMICTAL) 1-10 tablet by ity of 100 mg 00:00: mouth at [place] tablet 00 bedtime. [facility] Branch lamoTRIgine 2021-03 Yes [id number] 75mg Take 3 [facility] 25 mg 1-10 tablets by [facility]y of tablet 00:00: mouth [place] 00 every Medical morning. Branch lamoTRIgine 2021-03 Yes [id number] 100mg Take 1 [facility] (LAMICTAL) 1-10 tablet by [facility]y of 100 mg 00:00: mouth at [place] tablet 00 bedtime. [facility] lamoTRIgine 2021-03 Yes [id number] 75mg Take 3 [facility] 25 mg 1-10 tablets by [facility]y of tablet 00:00: mouth [place] 00 every Medical morning. Branch lamoTRIgine 2021-03 Yes [id number] 100mg Take 1 [facility] (LAMICTAL) 1-10 tablet by [facility]y of 100 mg 00:00: mouth at [place] tablet 00 bedtime. [facility] lamoTRIgine 2021-03 Yes [id number] 75mg Take 3 [facility] 25 mg 1-10 tablets by [facility]y of tablet 00:00: mouth [place] 00 every Medical morning. Branch lamoTRIgine 2021-03 Yes [id number] 100mg Take 1 [facility] (LAMICTAL) 1-10 tablet by [facility]y of 100 mg 00:00: mouth at [place] tablet 00 bedtime. [facility] lamoTRIgine 2021-03 Yes [id number] 75mg Take 3 [facility] 25 mg 1-10 tablets by [facility] of tablet 00:00: mouth [place] 00 every Medical morning. Branch lamoTRIgine 2021-03 Yes [id number] 100mg Take 1 [facility] (LAMICTAL) 1-10 tablet by [facility] of 100 mg 00:00: mouth at [place] tablet 00 bedtime. Medical Branch lamoTRIgine 2021-03 Yes [id number] 75mg Take 3 [facility] 25 mg 1-10 tablets by [facility] of tablet 00:00: mouth [place] 00 every Medical morning. Branch lamoTRIgine 2021-03 Yes [id number] 100mg Take 1 [facility] (LAMICTAL) 1-10 tablet by [facility]y of 100 mg 00:00: mouth at [place] tablet 00 bedtime. [facility] lamoTRIgine 2021-03 Yes [id number] 75mg Take 3 [facility] 25 mg 1-10 tablets by [facility] of tablet 00:00: mouth [place] 00 every Medical morning. Branch lamoTRIgine 2021-03 Yes [id number] 100mg Take 1 [facility] (LAMICTAL) 1-10 tablet by [facility] of 100 mg 00:00: mouth at [place] tablet 00 bedtime. [facility] Branch lamoTRIgine 2022-1 Yes [id number] 75mg Take 3 [facility] 25 mg 1-10 tablets by [facility] of tablet 00:00: mouth [place] 00 every Medical morning. Branch lamoTRIgine 2021-03 Yes [id number] 100mg Take 1 [facility] (LAMICTAL) 1-10 tablet by [facility] of 100 mg 00:00: mouth at [place] tablet 00 bedtime. [facility] lamoTRIgine 2021-03 Yes [id number] 75mg Take 3 [facility] 25 mg 1-10 tablets by [facility] of tablet 00:00: mouth [place] 00 every Medical morning. Branch lamoTRIgine 2021-03 Yes [id number] 100mg Take 1 [facility] (LAMICTAL) 1-10 tablet by [facility] of 100 mg 00:00: mouth at [place] tablet 00 bedtime. [facility] lamoTRIgine 2021-03 Yes [id number] 75mg Take 3 [facility] 25 mg 1-10 tablets by [facility] of tablet 00:00: mouth [place] 00 every Medical morning. Branch lamoTRIgine 2021-03 Yes [id number] 100mg Take 1 [facility] (LAMICTAL) 1-10 tablet by [facility] of 100 mg 00:00: mouth at [place] tablet 00 bedtime. [facility] lamoTRIgine 2021-03 Yes [id number] 75mg Take 3 [facility] 25 mg 1-10 tablets by [facility] of tablet 00:00: mouth [place] 00 every Medical morning. Branch lamoTRIgine 2021-03 Yes [id number] 100mg Take 1 [facility] (LAMICTAL) 1-10 tablet by [facility] of 100 mg 00:00: mouth at [place] tablet 00 bedtime. Medical Branch lamoTRIgine 2021-03 Yes [id number] 75mg Take 3 [facility] 25 mg 1-10 tablets by [facility] of tablet 00:00: mouth [place] 00 every Medical morning. Branch lamoTRIgine 2021-03 Yes [id number] 100mg Take 1 [facility] (LAMICTAL) 1-10 tablet by [facility] of 100 mg 00:00: mouth at [place] tablet 00 bedtime. [facility] Branch lamoTRIgine 2021-03 Yes [id number] 75mg Take 3 [facility] 25 mg 1-10 tablets by [facility] of tablet 00:00: mouth [place] 00 every Medical morning. Branch lamoTRIgine 2021-03 Yes [id number] 100mg Take 1 [facility] (LAMICTAL) 1-10 tablet by [facility] of 100 mg 00:00: mouth at [place] tablet 00 bedtime. [facility] Branch lamoTRIgine 2021-03 Yes [id number] 75mg Take 3 [facility] 25 mg 1-10 tablets by [facility] of tablet 00:00: mouth [place] 00 every Medical morning. Branch lamoTRIgine 2021-03 Yes [id number] 100mg Take 1 [facility] (LAMICTAL) 1-10 tablet by [facility] of 100 mg 00:00: mouth at [place] tablet 00 bedtime. Medical Branch lamoTRIgine 2021-03 Yes [id number] 75mg Take 3 [facility] 25 mg 1-10 tablets by [facility] of tablet 00:00: mouth [place] 00 every Medical morning. Branch lamoTRIgine 2021-03 Yes [id number] 100mg Take 1 [facility] (LAMICTAL) 1-10 tablet by [facility] of 100 mg 00:00: mouth at [place] tablet 00 bedtime. [facility] Branch lamoTRIgine 2021-03 Yes [id number] 75mg Take 3 [facility] 25 mg 1-10 tablets by [facility] of tablet 00:00: mouth [place] 00 every Medical morning. Branch lamoTRIgine 2021-03 Yes [id number] 100mg Take 1 [facility] (LAMICTAL) 1-10 tablet by [facility] of 100 mg 00:00: mouth at [place] tablet 00 bedtime. [facility] Branch lamoTRIgine 2021-03 Yes [id number] 100mg Take 1 [facility] (LAMICTAL) 1-10 tablet by [facility] of 100 mg 00:00: mouth at [place] tablet 00 bedtime. [facility] Branch lamoTRIgine 2021-03 Yes [id number] 100mg Take 1 [facility] (LAMICTAL) 1-10 tablet by [facility] of 100 mg 00:00: mouth at [place] tablet 00 bedtime. [facility] Branch lamoTRIgine 2021-03 Yes [id number] 100mg Take 1 [facility] (LAMICTAL) 1-10 tablet by [facility] of 100 mg 00:00: mouth at [place] tablet 00 bedtime. [facility] Branch lamoTRIgine 2021-03 Yes [id number] 100mg Take 1 [facility] (LAMICTAL) 1-10 tablet by [facility] of 100 mg 00:00: mouth at [place] tablet 00 bedtime. [facility] Branch lamoTRIgine 2021-03 Yes [id number] 100mg Take 1 [facility] (LAMICTAL) 1-10 tablet by [facility] of 100 mg 00:00: mouth at [place] tablet 00 bedtime. [facility] Branch lamoTRIgine 2021-03 Yes [id number] 100mg Take 1 [facility] (LAMICTAL) 1-10 tablet by [facility] of 100 mg 00:00: mouth at [place] tablet 00 bedtime. [facility] Branch lamoTRIgine 2021-03 Yes [id number] 100mg Take 1 [facility] (LAMICTAL) 1-10 tablet by [facility] of 100 mg 00:00: mouth at [place] tablet 00 bedtime. [facility] Branch lamoTRIgine 2021-03 Yes [id number] 100mg Take 1 [facility] (LAMICTAL) 1-10 tablet by [facility] of 100 mg 00:00: mouth at [place] tablet 00 bedtime. [facility] Branch lamoTRIgine 2021-03 Yes [id number] 100mg Take 1 [facility] (LAMICTAL) 1-10 tablet by [facility]y of 100 mg 00:00: mouth at [place] tablet 00 bedtime. [facility] Branch lamoTRIgine 2021-03 Yes [id number] 100mg Take 1 [facility] (LAMICTAL) 1-10 tablet by [facility]y of 100 mg 00:00: mouth at [place] tablet 00 bedtime. [facility] Branch lamoTRIgine 2021-03 Yes [id number] 100mg Take 1 [facility] (LAMICTAL) 1-10 tablet by [facility]y of 100 mg 00:00: mouth at [place] tablet 00 bedtime. [facility] lamoTRIgine 2021-03 Yes [id number] 100mg Take 1 [facility] (LAMICTAL) 1-10 tablet by [facility]y of 100 mg 00:00: mouth at [place] tablet 00 bedtime. [facility] lamoTRIgine 2021-03 Yes [id number] 100mg Take 1 [facility] (LAMICTAL) 1-10 tablet by [facility] of 100 mg 00:00: mouth at [place] tablet 00 bedtime. [facility] lamoTRIgine 2021-03 Yes [id number] 100mg Take 1 [facility] (LAMICTAL) 1-10 tablet by [facility] of 100 mg 00:00: mouth at [place] tablet 00 bedtime. [facility] lamoTRIgine 2021-03 Yes [id number] 100mg Take 1 [facility] (LAMICTAL) 1-10 tablet by [facility]y of 100 mg 00:00: mouth at [place] tablet 00 bedtime. [facility] lamoTRIgine 2021-03 Yes [id number] 100mg Take 1 [facility] (LAMICTAL) 1-10 tablet by [facility] of 100 mg 00:00: mouth at [place] tablet 00 bedtime. [facility] lamoTRIgine 2021-03 Yes [id number] 100mg Take 1 [facility] (LAMICTAL) 1-10 tablet by [facility] of 100 mg 00:00: mouth at [place] tablet 00 bedtime. [facility] lamoTRIgine 2021-03 Yes [id number] 100mg Take 1 [facility] (LAMICTAL) 1-10 tablet by [facility] of 100 mg 00:00: mouth at [place] tablet 00 bedtime. [facility] lamoTRIgine 2021-03 Yes [id number] 100mg Take 1 [facility] (LAMICTAL) 1-10 tablet by [facility]y of 100 mg 00:00: mouth at [place] tablet 00 bedtime. [facility] Branch lamoTRIgine 2021-03 Yes [id number] 100mg Take 1 [facility] (LAMICTAL) 1-10 tablet by ity of 100 mg 00:00: mouth at [place] tablet 00 bedtime. [facility] Branch lamoTRIgine 2021-03 Yes [id number] 100mg Take 1 [facility] (LAMICTAL) 1-10 tablet by ity of 100 mg 00:00: mouth at [place] tablet 00 bedtime. [facility] lamoTRIgine 2021-03 Yes [id number] 100mg Take 1 [facility] (LAMICTAL) 1-10 tablet by ity of 100 mg 00:00: mouth at [place] tablet 00 bedtime. [facility] lamoTRIgine 2021-03 Yes [id number] 100mg Take 1 [facility] (LAMICTAL) 1-10 tablet by ity of 100 mg 00:00: mouth at [place] tablet 00 bedtime. [facility] lamoTRIgine 2021-03 Yes [id number] 100mg Take 1 [facility] (LAMICTAL) 1-10 tablet by [facility]y of 100 mg 00:00: mouth at [place] tablet 00 bedtime. [facility] lamoTRIgine 2021-03 Yes [id number] 100mg Take 1 [facility] (LAMICTAL) 1-10 tablet by ity of 100 mg 00:00: mouth at [place] tablet 00 bedtime. [facility] lamoTRIgine 2021-03 Yes [id number] 100mg Take 1 [facility] (LAMICTAL) 1-10 tablet by ity of 100 mg 00:00: mouth at [place] tablet 00 bedtime. [facility] lamoTRIgine 2021-03 Yes [id number] 100mg Take 1 [facility] (LAMICTAL) 1-10 tablet by ity of 100 mg 00:00: mouth at [place] tablet 00 bedtime. [facility] lamoTRIgine 2021-03 Yes [id number] 100mg Take 1 [facility] (LAMICTAL) 1-10 tablet by [facility]y of 100 mg 00:00: mouth at [place] tablet 00 bedtime. [facility] lamoTRIgine 2021-03 Yes [id number] 100mg Take 1 [facility] (LAMICTAL) 1-10 tablet by ity of 100 mg 00:00: mouth at [place] tablet 00 bedtime. [facility] lamoTRIgine 2021-03 Yes [id number] 100mg Take 1 [facility] (LAMICTAL) 1-10 tablet by ity of 100 mg 00:00: mouth at [place] tablet 00 bedtime. [facility] Branch lamoTRIgine 2021-03 Yes [id number] 100mg Take 1 [facility] (LAMICTAL) 1-10 tablet by ity of 100 mg 00:00: mouth at [place] tablet 00 bedtime. [facility] Branch lamoTRIgine 2021-03 Yes [id number] 100mg Take 1 [facility] (LAMICTAL) 1-10 tablet by ity of 100 mg 00:00: mouth at [place] tablet 00 bedtime. [facility] Branch lamoTRIgine 2021-03 Yes [id number] 100mg Take 1 [facility] (LAMICTAL) 1-10 tablet by ity of 100 mg 00:00: mouth at [place] tablet 00 bedtime. [facility] Branch lamoTRIgine 2021-03 Yes [id number] 100mg Take 1 [facility] (LAMICTAL) 1-10 tablet by ity of 100 mg 00:00: mouth at [place] tablet 00 bedtime. [facility] Branch lamoTRIgine 2021-03 Yes [id number] 100mg Take 1 [facility] (LAMICTAL) 1-10 tablet by ity of 100 mg 00:00: mouth at [place] tablet 00 bedtime. [facility] Branch lamoTRIgine 2021-03 Yes [id number] 100mg Take 1 [facility] (LAMICTAL) 1-10 tablet by ity of 100 mg 00:00: mouth at [place] tablet 00 bedtime. [facility] Branch lamoTRIgine 2021-03 Yes [id number] 100mg Take 1 [facility] (LAMICTAL) 1-10 tablet by ity of 100 mg 00:00: mouth at [place] tablet 00 bedtime. [facility] Branch lamoTRIgine 2021-03 Yes [id number] 100mg Take 1 [facility] (LAMICTAL) 1-10 tablet by ity of 100 mg 00:00: mouth at [place] tablet 00 bedtime. [facility] Branch lamoTRIgine 2021-03 Yes [id number] 100mg Take 1 [facility] (LAMICTAL) 1-10 tablet by ity of 100 mg 00:00: mouth at [place] tablet 00 bedtime. [facility] Branch lamoTRIgine 2021-03 Yes [id number] 100mg Take 1 [facility] (LAMICTAL) 1-10 tablet by ity of 100 mg 00:00: mouth at [place] tablet 00 bedtime. [facility] Branch lamoTRIgine 2021-03 Yes [id number] 100mg Take 1 [facility] (LAMICTAL) 1-10 tablet by ity of 100 mg 00:00: mouth at [place] tablet 00 bedtime. [facility] Branch lamoTRIgine 2021-03 Yes [id number] 100mg Take 1 [facility] (LAMICTAL) 1-10 tablet by ity of 100 mg 00:00: mouth at [place] tablet 00 bedtime. [facility] Branch lamoTRIgine 2021-03 Yes [id number] 100mg Take 1 [facility] (LAMICTAL) 1-10 tablet by ity of 100 mg 00:00: mouth at [place] tablet 00 bedtime. [facility] Branch lamoTRIgine 2021-03 Yes [id number] 100mg Take 1 [facility] (LAMICTAL) 1-10 tablet by ity of 100 mg 00:00: mouth at [place] tablet 00 bedtime. [facility] Branch lamoTRIgine 2021-03 Yes [id number] 100mg Take 1 [facility] (LAMICTAL) 1-10 tablet by ity of 100 mg 00:00: mouth at [place] tablet 00 bedtime. Medical Branch lamoTRIgine 2021-03 Yes [id number] 100mg Take 1 [facility] (LAMICTAL) 1-10 tablet by ity of 100 mg 00:00: mouth at [place] tablet 00 bedtime. Medical Branch lamoTRIgine 2021-03 Yes [id number] 100mg Take 1 [facility] (LAMICTAL) 1-10 tablet by ity of 100 mg 00:00: mouth at [place] tablet 00 bedtime. Medical Branch lamoTRIgine 2021-03 Yes [id number] 100mg Take 1 [facility] (LAMICTAL) 1-10 tablet by ity of 100 mg 00:00: mouth at [place] tablet 00 bedtime. Medical Branch lamoTRIgine 2021-03 Yes [id number] 100mg Take 1 [facility] (LAMICTAL) 1-10 tablet by ity of 100 mg 00:00: mouth at [place] tablet 00 bedtime. Medical Branch lamoTRIgine 2021-03 Yes [id number] 100mg Take 1 [facility] (LAMICTAL) 1-10 tablet by ity of 100 mg 00:00: mouth at [place] tablet 00 bedtime. Medical Branch lamoTRIgine 2021-03 Yes [id number] 100mg Take 1 [facility] (LAMICTAL) 1-10 tablet by ity of 100 mg 00:00: mouth at [place] tablet 00 bedtime. Medical Branch lamoTRIgine 2021-03 Yes [id number] 100mg Take 1 [facility] (LAMICTAL) 1-10 tablet by ity of 100 mg 00:00: mouth at [place] tablet 00 bedtime. [facility] lamoTRIgine 2021-03 Yes [id number] 100mg Take 1 [facility] (LAMICTAL) 1-10 tablet by ity of 100 mg 00:00: mouth at [place] tablet 00 bedtime. [facility] lamoTRIgine 2021-03- No [id number] 75mg Take 3 [facility] 25 mg 1-10 05-03 tablets by ity of tablet 00:00: 00:00 mouth [place] 00 :00 every Medical morning. Branch lamoTRIgine 2021-03- No [id number] 75mg Take 3 [facility] 25 mg 1-10 [...] combo pack Branch foLIC acid 2021-03- No [id number] 4mg Take 4 [facility] 1 mg tablet 0-27 12-27 tablets by i ty of 00:00: 05:59 mouth in [place] 00 :00 the Medical morning Branch for 60 days. foLIC acid 2021-03- No [id number] 4mg Take 4 [facility] 1 mg tablet 0-27 12-27 tablets by i ty of 00:00: 05:59 mouth in [place] 00 :00 the Medical morning Branch for 60 days. foLIC acid 2021-03- No [id number] 4mg Take 4 [facility] 1 mg tablet 0-27 12-27 tablets by i ty of 00:00: 05:59 mouth in [place] 00 :00 the Medical morning Branch for 60 days. foLIC acid 2021-03- No [id number] 4mg Take 4 [facility] 1 mg tablet 0-27 12-27 tablets by i ty of 00:00: 05:59 mouth in [place] 00 :00 the Medical morning Branch for 60 days. foLIC acid 2021-03- No [id number] 4mg Take 4 [facility] 1 mg tablet 0-27 12-27 tablets by i ty of 00:00: 05:59 mouth in [place] 00 :00 the Medical morning Branch for 60 days. foLIC acid 2021-03- No [id number] 4mg Take 4 [facility] 1 mg tablet 0-27 12-27 tablets by i ty of 00:00: 05:59 mouth in [place] 00 :00 the Medical morning Branch for 60 days. foLIC acid 2021-03- No [id number] 4mg Take 4 [facility] 1 mg tablet 0-27 12-27 tablets by i ty of 00:00: 05:59 mouth in [place] 00 :00 the Medical morning Branch for 60 days. foLIC acid 2021-03- No [id number] 4mg Take 4 [facility] 1 mg tablet 0-27 12-27 tablets by i ty of 00:00: 05:59 mouth in [place] 00 :00 the Medical morning Branch for 60 days. foLIC acid 2021-03- No [id number] 4mg Take 4 [facility] 1 mg tablet 0-27 12-27 tablets by i ty of 00:00: 05:59 mouth in [place] 00 :00 the Medical morning Branch for 60 days. foLIC acid 2021-03- No [id number] 4mg Take 4 [facility] 1 mg tablet 0-27 12-27 tablets by i ty of 00:00: 05:59 mouth in [place] 00 :00 the Medical morning Branch for 60 days. foLIC acid 2021-03- No [id number] 4mg Take 4 [facility] 1 mg tablet 0-27 12-27 tablets by i ty of 00:00: 05:59 mouth in [place] 00 :00 the Medical morning Branch for 60 days. foLIC acid 2021-03- No [id number] 4mg Take 4 [facility] 1 mg tablet 0-27 12-27 tablets by i ty of 00:00: 05:59 mouth in [place] 00 :00 the Medical morning Branch for 60 days. foLIC acid 2021-03- No [id number] 4mg Take 4 [facility] 1 mg tablet 0-27 12-27 tablets by i ty of 00:00: 05:59 mouth in [place] 00 :00 the Medical morning Branch for 60 days. foLIC acid 2021-03- No [id number] 4mg Take 4 [facility] 1 mg tablet 0-27 12-27 tablets by i ty of 00:00: 05:59 mouth in [place] 00 :00 the Medical morning Branch for 60 days. foLIC acid 2021-03- No [id number] 4mg Take 4 [facility] 1 mg tablet 0-27 12-27 tablets by i ty of 00:00: 05:59 mouth in [place] 00 :00 the Medical morning Branch for 60 days. foLIC acid 2021-03- No [id number] 4mg Take 4 [facility] 1 mg tablet 0-27 12-27 tablets by i ty of 00:00: 05:59 mouth in [place] 00 :00 the Medical morning Branch for 60 days. foLIC acid 2021-03- No [id number] 4mg Take 4 [facility] 1 mg tablet 0-27 12-27 tablets by i ty of 00:00: 05:59 mouth in [place] 00 :00 the Medical morning Branch for 60 days. foLIC acid 2021-03- No [id number] 4mg Take 4 [facility] 1 mg tablet 0-27 12-27 tablets by i ty of 00:00: 05:59 mouth in [place] 00 :00 the Medical morning Branch for 60 days. foLIC acid 2021-03- No [id number] 4mg Take 4 [facility] 1 mg tablet 0-27 12-27 tablets by i ty of 00:00: 05:59 mouth in [place] 00 :00 the [facility] morning Branch for 60 days. foLIC acid 2021-03- No [id number] 4mg Take 4 [facility] 1 mg tablet 0-27 12-27 tablets by i ty of 00:00: 05:59 mouth in [place] 00 :00 the Medical morning Branch for 60 days. foLIC acid 2021-03- No [id number] 4mg Take 4 [facility] 1 mg tablet 0-27 12-27 tablets by i ty of 00:00: 05:59 mouth in [place] 00 :00 the Medical morning Branch for 60 days. foLIC acid 2021-03- No [id number] 4mg Take 4 [facility] 1 mg tablet 0-27 12-27 tablets by i ty of 00:00: 05:59 mouth in [place] 00 :00 the Medical morning Branch for 60 days. foLIC acid 2021-03- No [id number] 4mg Take 4 [facility] 1 mg tablet 0-27 12-27 tablets by i ty of 00:00: 05:59 mouth in [place] 00 :00 the Medical morning Branch for 60 days. foLIC acid 2021-03- No [id number] 4mg Take 4 [facility] 1 mg tablet 0-27 12-27 tablets by i ty of 00:00: 05:59 mouth in [place] 00 :00 the Medical morning Branch for 60 days. foLIC acid 2021-03- No [id number] 4mg Take 4 [facility] 1 mg tablet 0-27 12-27 tablets by i ty of 00:00: 05:59 mouth in [place] 00 :00 the Medical morning Branch for 60 days. foLIC acid 2021-03- No [id number] 4mg Take 4 [facility] 1 mg tablet 0-27 12-27 tablets by i ty of 00:00: 05:59 mouth in [place] 00 :00 the Medical morning Branch for 60 days. foLIC acid 2021-03- No [id number] 4mg Take 4 [facility] 1 mg tablet 0-27 12-27 tablets by i ty of 00:00: 05:59 mouth in [place] 00 :00 the Medical morning Branch for 60 days. foLIC acid 2021-03- No [id number] 4mg Take 4 [facility] 1 mg tablet 0-27 12-07 tablets by i ty of 00:00: 00:00 mouth in [place] 00 :00 the Medical morning Branch for [...] 2 ity of disintegrat 00:00: TABLETS BY [place] ing tablet 00 MOUTH ONCE Med ical DAILY IN Branch THE MORNING lamoTRIgine 2021-03 Yes CHEW AND [place] 25 mg 0-06 SWALLOW 2 ity of disintegrat 00:00: TABLETS BY [place] ing tablet 00 MOUTH ONCE Med ical DAILY IN [place] THE MORNING lamoTRIgine 2021-03 Yes CHEW AND [facility] [place] 25 mg 0-06 SWALLOW 2 ity of disintegrat 00:00: TABLETS BY [place] ing tablet 00 MOUTH ONCE Med ical DAILY IN [place] THE MORNING lamoTRIgine 2021-03 Yes CHEW AND [facility] [place] 25 mg 0-06 SWALLOW 2 ity of disintegrat 00:00: TABLETS BY [place] ing tablet 00 MOUTH ONCE Med ical DAILY IN [place] THE MORNING lamoTRIgine 2021-03 Yes CHEW AND [facility] [place] 25 mg 0-06 SWALLOW 2 ity of disintegrat 00:00: TABLETS BY [place] ing tablet 00 MOUTH ONCE Med ical DAILY IN [place] THE MORNING lamoTRIgine 2021-03 Yes CHEW AND [facility] [place] 25 mg 0-06 SWALLOW 2 ity of disintegrat 00:00: TABLETS BY [place] ing tablet 00 MOUTH ONCE Med ical DAILY IN [place] THE MORNING lamoTRIgine 2021-03 Yes CHEW AND [facility] [place] 25 mg 0-06 SWALLOW 2 ity of disintegrat 00:00: TABLETS BY [place] ing tablet 00 MOUTH ONCE Med ical DAILY IN [place] THE MORNING lamoTRIgine 2021-03 Yes CHEW AND [facility] [place] 25 mg 0-06 SWALLOW 2 ity of disintegrat 00:00: TABLETS BY [place] ing tablet 00 MOUTH ONCE Med ical DAILY IN [place] THE MORNING lamoTRIgine 2021-03 Yes CHEW AND [facility] [place] 25 mg 0-06 SWALLOW 2 ity of disintegrat 00:00: TABLETS BY [place] ing tablet 00 MOUTH ONCE Med ical DAILY IN [place] THE MORNING lamoTRIgine 2021-03 Yes CHEW AND [facility] [place] 25 mg 0-06 SWALLOW 2 ity of disintegrat 00:00: TABLETS BY [place] ing tablet 00 MOUTH ONCE Med ical DAILY IN [place] THE MORNING lamoTRIgine 2021-03 Yes CHEW AND [facility] [place] 25 mg 0-06 SWALLOW 2 ity of disintegrat 00:00: TABLETS BY [place] ing tablet 00 MOUTH ONCE Med ical DAILY IN [place] THE MORNING lamoTRIgine 2021-03 Yes CHEW AND [facility] [place] 25 mg 0-06 SWALLOW 2 ity of disintegrat 00:00: TABLETS BY [place] ing tablet 00 MOUTH ONCE Med ical DAILY IN [place] THE MORNING lamoTRIgine 2021-03 Yes CHEW AND [...] 12 bedtime. Medical 25 qA Branch lamoTRIgine Yes 100mg Take 100 U nivers (LAMICTAL) 9-25 mg by ity of 100 mg 18:22: mouth at [place] tablet 12 bedtime. Medical 25 qA Branch lamoTRIgine Yes 100mg Take 100 U nivers (LAMICTAL) 9-25 mg by ity of 100 mg 18:22: mouth at [place] tablet 12 bedtime. Medical 25 [facility] Branch lamoTRIgine Yes 100mg Take 100 U nivers (LAMICTAL) 9-25 mg by ity of 100 mg 18:22: mouth at [place] tablet 12 bedtime. Medical 25 [facility] Branch lamoTRIgine Yes 100mg Take 100 U nivers (LAMICTAL) 9-25 mg by ity of 100 mg 18:22: mouth at [place] tablet 12 bedtime. Medical 25 [facility] Branch lamoTRIgine Yes 100mg Take 100 U nivers (LAMICTAL) 9-25 mg by ity of 100 mg 18:22: mouth at [place] tablet 12 bedtime. Medical 25 [facility] Branch lamoTRIgine Yes 100mg Take 100 U nivers (LAMICTAL) 9-25 mg by ity of 100 mg 18:22: mouth at [place] tablet 12 bedtime. Medical 25 [facility] Branch lamoTRIgine Yes 100mg Take 100 U nivers (LAMICTAL) 9-25 mg by ity of 100 mg 18:22: mouth at [place] tablet 12 bedtime. Medical 25 [facility] Branch lamoTRIgine Yes 100mg Take 100 U nivers (LAMICTAL) 9-25 mg by ity of 100 mg 18:22: mouth at [place] tablet 12 bedtime. Medical 25 [facility] Branch lamoTRIgine Yes 100mg Take 100 U nivers (LAMICTAL) 9-25 mg by ity of 100 mg 18:22: mouth at [place] tablet 12 bedtime. Medical 25 [facility] Branch lamoTRIgine Yes 100mg Take 100 U nivers (LAMICTAL) 9-25 mg by ity of 100 mg 18:22: mouth at [place] tablet 12 bedtime. Medical 25 [facility] Branch lamoTRIgine Yes 100mg Take 100 U nivers (LAMICTAL) 9-25 mg by ity of 100 mg 18:22: mouth at [place] tablet 12 bedtime. Medical 25 [facility] Branch lamoTRIgine Yes 100mg Take 100 U nivers (LAMICTAL) 9-25 mg by ity of 100 mg 18:22: mouth at [place] tablet 12 bedtime. Medical 25 [facility] Branch lamoTRIgine Yes 100mg Take 100 U nivers (LAMICTAL) 9-25 mg by ity of 100 mg 18:22: mouth at [place] tablet 12 bedtime. Medical 25 [facility] Branch lamoTRIgine Yes 100mg Take 100 U nivers (LAMICTAL) 9-25 mg by ity of 100 mg 18:22: mouth at [place] tablet 12 bedtime. Medical 25 [facility] Branch lamoTRIgine Yes 100mg Take 100 U nivers (LAMICTAL) 9-25 mg by ity of 100 mg 18:22: mouth at [place] tablet 12 bedtime. Medical 25 [facility] Branch lamoTRIgine Yes 100mg Take 100 U nivers (LAMICTAL) 9-25 mg by ity of 100 mg 18:22: mouth at [place] tablet 12 bedtime. Medical 25 [facility] Branch lamoTRIgine Yes 100mg Take 100 U nivers (LAMICTAL) 9-25 mg by ity of 100 mg 18:22: mouth at [place] tablet 12 bedtime. Medical 25 [facility] Branch lamoTRIgine Yes 100mg Take 100 U nivers (LAMICTAL) 9-25 mg by ity of 100 mg 18:22: mouth at [place] tablet 12 bedtime. Medical 25 [facility] Branch lamoTRIgine Yes 100mg Take 100 U nivers (LAMICTAL) 9-25 mg by ity of 100 mg 18:22: mouth at [place] tablet 12 bedtime. Medical 25 [facility] Branch lamoTRIgine Yes 100mg Take 100 U nivers (LAMICTAL) 9-25 mg by ity of 100 mg 18:22: mouth at [place] tablet 12 bedtime. Medical 25 [facility] Branch lamoTRIgine Yes 100mg Take 100 U nivers (LAMICTAL) 9-25 mg by ity of 100 mg 18:22: mouth at [place] tablet 12 bedtime. Medical 25 [facility] Branch lamoTRIgine Yes 100mg Take 100 U nivers (LAMICTAL) 9-25 mg by ity of 100 mg 18:22: mouth at [place] tablet 12 bedtime. Medical 25 [facility] lamoTRIgine Yes 100mg Take 100 U nivers (LAMICTAL) 9-25 mg by ity of 100 mg 18:22: mouth at [place] tablet [address] Branch lamoTRIgine 2021-0 Yes 100mg Take 100 U nivers (LAMICTAL) 9-25 mg by ity of 100 mg 18:22: mouth at [place] tablet 12 bedtime. [facility] lamoTRIgine 2021-0 Yes 100mg Take 100 U nivers (LAMICTAL) 9-25 mg by ity of 100 mg 18:22: mouth at [place] tablet [address] Branch cyclobenzap 2021-0 2021- No [id number] 10mg Take 1 [facility] rine 10 mg 9-25 10-01 tablet by ity of tablet 00:00: 04:59 mouth in [place] 00 :00 the [facility] morning Branch and 1 tablet at noon and 1 tablet in the evening. Do all this for 15 doses. cyclobenzap 2021-0 2021- No [id number] 10mg Take 1 [facility] rine 10 mg 9-25 10-01 tablet by ity of tablet 00:00: 04:59 mouth in [place] 00 :00 the [facility] morning Branch and 1 tablet at noon and 1 tablet in the evening. Do all this for 15 doses. hydrOXYzine 2021-0 Yes Univer s 25 mg/mL 9-16 ity of injection 00:00: [place] [facility] Branch hydrOXYzine 2-0 Yes Univer s 25 mg/mL 9-16 ity of injection 00:00: [address] Branch hydrOXYzine 2-0 Yes Univer s 25 mg/mL 9-16 ity of injection 00:00: [place] [facility] Branch hydrOXYzine 2-0 Yes Univer s 25 mg/mL 9-16 ity of injection 00:00: [place] [id number] Medical Branch hydrOXYzine 2-0 Yes Univer s 25 mg/mL 9-16 ity of injection 00:00: [place] Medical Branch hydrOXYzine 2-0 Yes Univer s 25 mg/mL 9-16 ity of injection 00:00: [place] [address] Medical Branch hydrOXYzine 2-0 Yes Univer s 25 mg/mL 9-16 ity of injection 00:00: [place] [address] Medical Branch hydrOXYzine 2-0 Yes Univer s 25 mg/mL 9-16 ity of injection 00:00: [place] 00 Medical Branch hydrOXYzine 2-0 Yes Univer s 25 mg/mL 9-16 ity of injection 00:00: [place] 00 Medical Branch hydrOXYzine 2-0 Yes Univer s 25 mg/mL 9-16 ity of injection 00:00: [place] 00 Medical Branch hydrOXYzine 2022-0 Yes Univer s 25 mg/mL 9-16 ity of injection 00:00: [place] 00 Medical Branch hydrOXYzine 2-0 Yes Univer s 25 mg/mL 9-16 ity of injection 00:00: [place] [address] Medical Branch hydrOXYzine 2-0 Yes Univer s 25 mg/mL 9-16 ity of injection 00:00: [place] [address] Medical Branch hydrOXYzine 2-0 Yes Univer s 25 mg/mL 9-16 ity of injection 00:00: [place] [address] Medical Branch hydrOXYzine 2-0 Yes Univer s 25 mg/mL 9-16 ity of injection 00:00: [place] [address] Medical Branch hydrOXYzine 2-0 Yes Univer s 25 mg/mL 9-16 ity of injection 00:00: [place] [address] Medical Branch hydrOXYzine 2-0 Yes Univer s 25 mg/mL 9-16 ity of injection 00:00: [place] [address] Medical Branch hydrOXYzine 2-0 Yes Univer s 25 mg/mL 9-16 ity of injection 00:00: [place] [address] Medical Branch hydrOXYzine 2-0 Yes Univer s 25 mg/mL 9-16 ity of injection 00:00: [place] [address] Medical Branch hydrOXYzine 2-0 Yes Univer s 25 mg/mL 9-16 ity of injection 00:00: [place] [address] Medical Branch hydrOXYzine 2-0 Yes Univer s 25 mg/mL 9-16 ity of injection 00:00: [place] 00 Medical Branch hydrOXYzine 2-0 Yes Univer s 25 mg/mL 9-16 ity of injection 00:00: [place] 00 Medical Branch hydrOXYzine 2022-0 Yes Univer s 25 mg/mL 9-16 ity of injection 00:00: [place] [address] Medical Branch hydrOXYzine 2022-0 Yes Univer s 25 mg/mL 9-16 ity of injection 00:00: [place] 00 Medical Branch hydrOXYzine 2-0 Yes Univer s 25 mg/mL 9-16 ity of injection 00:00: [place] 00 Medical Branch hydrOXYzine 2021-0 2022- No Unive rs 25 mg/mL 9-16 12-05 ity of injection 00:00: 00:00 [place] 00 :00 Medical Branch hydrOXYzine 2022-0 2022- No Unive rs 25 mg/mL 9-16 12-05 ity of injection 00:00: 00:00 [place] 00 :00 Medical Branch hydrOXYzine 2022-0 Yes Univer s 25 mg 9-13 ity of capsule 00:00: [place] 00 Medical Branch hydrOXYzine 2022-0 Yes Univer s 25 mg 9-13 ity of capsule 00:00: [place] 00 Medical Branch hydrOXYzine 2-0 Yes Univer s 25 mg 9-13 ity of capsule 00:00: [place] [address] Medical Branch hydrOXYzine 2022-0 Yes Univer s 25 mg 9-13 ity of capsule 00:00: [place] 00 Medical Branch hydrOXYzine 2022-0 2022- No Unive rs 25 mg 9-13 11-10 ity of capsule 00:00: 00:00 [place] 00 :00 Medical Branch hydrOXYzine 2022-0 2022- No Unive rs 25 mg 9-13 11-10 ity of capsule 00:00: 00:00 [place] 00 :00 Medical Branch hydrOXYzine 2022-0 2022- No Unive rs 25 mg 9-13 11-10 ity of capsule 00:00: 00:00 [place] 00 :00 Medical Branch hydrOXYzine 2022-0 2022- No Unive rs 25 mg 9-13 11-10 ity of capsule 00:00: 00:00 [place] 00 :00 Medical Branch hydrOXYzine 2022-0 2022- No Unive rs 25 mg 9-13 11-10 ity of capsule 00:00: 00:00 [place] 00 :00 Medical Branch lamoTRIgine 2022-0 Yes 25mg Take 25 mg [facility] 25 mg 9-12 by mouth ity of tablet 00:00: every [place] 00 morning. Medical Branch lamoTRIgine 2022-0 Yes 25mg Take 25 mg [facility] 25 mg 9-12 by mouth ity of tablet 00:00: every [place] 00 morning. Medical Branch lamoTRIgine 2022-0 Yes 25mg Take 25 mg [facility] 25 mg 9-12 by mouth ity of tablet 00:00: every [place] 00 morning. Medical Branch lamoTRIgine 2021-0 Yes 25mg Take 25 mg [facility] 25 mg 9-12 by mouth ity of tablet 00:00: every [place] 00 morning. Medical Branch lamoTRIgine 2021-0 2022- No 25mg Take 25 mg [facility] 25 mg 9-12 11-10 by mouth ity of tablet 00:00: 00:00 every [place] 00 :00 morning. Medical Branch lamoTRIgine 2021-0 2- No 25mg Take 25 mg [facility] 25 mg 9-12 11-10 by mouth ity of tablet 00:00: 00:00 every [place] 00 :00 morning. Medical Branch lamoTRIgine 2021-0 2- No 25mg Take 25 mg [facility] 25 mg 9-12 11-10 by mouth ity of tablet 00:00: 00:00 every [place] 00 :00 morning. [facility] Branch lamoTRIgine 2021-0 2- No 25mg Take 25 mg [facility] 25 mg 9-12 11-10 by mouth ity of tablet 00:00: 00:00 every [place] 00 :00 morning. [facility] Branch lamoTRIgine 2021-0 2- No 25mg Take 25 mg [facility] 25 mg 9-12 11-10 by mouth ity of tablet 00:00: 00:00 every [place] 00 :00 morning. [facility] Branch lamoTRIgine 2021-0 Yes 100mg Take 100 U nivers (LAMICTAL) 8-29 mg by ity of 100 mg 15:28: mouth at [place] tablet [address] Branch lamoTRIgine 2021-0 Yes 100mg Take 100 U nivers (LAMICTAL) 8-29 mg by ity of 100 mg 15:28: mouth at [place] tablet [address] Branch lamoTRIgine 2021-0 Yes 100mg Take 100 U nivers (LAMICTAL) 8-29 mg by ity of 100 mg 15:28: mouth at [place] tablet 29 bedtime. [facility] lamoTRIgine 2021-0 Yes 100mg Take 100 U nivers (LAMICTAL) 8-29 mg by ity of 100 mg 15:28: mouth at [place] tablet [address] Branch lamoTRIgine 2021-0 Yes 100mg Take 100 U nivers (LAMICTAL) 8-29 mg by ity of 100 mg 15:28: mouth at [place] tablet [address] Branch lamoTRIgine 0 Yes 100mg Take 100 U nivers (LAMICTAL) 8-29 mg by ity of 100 mg 15:28: mouth at [place] tablet [address] Branch lamoTRIgine Yes 100mg Take 100 U nivers (LAMICTAL) 8-29 mg by ity of 100 mg 15:28: mouth at [place] tablet [address] Branch lamoTRIgine Yes 100mg Take 100 U nivers (LAMICTAL) 8-29 mg by ity of 100 mg 15:28: mouth at [place] tablet [address] lamoTRIgine Yes 100mg Take 100 U nivers (LAMICTAL) 8-29 mg by ity of 100 mg 15:28: mouth at [place] tablet [address] lamoTRIgine Yes 100mg Take 100 U nivers (LAMICTAL) 8-29 mg by ity of 100 mg 15:28: mouth at [place] tablet [address] lamoTRIgine Yes 100mg Take 100 U nivers (LAMICTAL) 8-29 mg by ity of 100 mg 15:28: mouth at [place] tablet [address] lamoTRIgine Yes 100mg Take 100 U nivers (LAMICTAL) 8-29 mg by ity of 100 mg 15:28: mouth at [place] tablet [address] lamoTRIgine Yes 100mg Take 100 U nivers (LAMICTAL) 8-29 mg by ity of 100 mg 15:28: mouth at [place] tablet [address] lamoTRIgine Yes Univer s (LAMICTAL) 6-15 ity of 100 mg 00:00: [place] tablet 00 [facility] lamoTRIgine 0 Yes Univer s (LAMICTAL) 6-15 ity of 100 mg 00:00: [place] tablet 00 [facility] lamoTRIgine Yes Univer s (LAMICTAL) 6-15 ity of 100 mg 00:00: [place] tablet 00 Medical Branch lamoTRIgine Yes Univer s (LAMICTAL) 6-15 ity of 100 mg 00:00: [place] tablet 00 Medical Branch lamoTRIgine 2022- No Unive rs (LAMICTAL) 6-15 11-10 [...] [place] tablet 00 :00 Medical Branch busPIRone 0 Yes [id number] 18.75mg Take 2.5 [facility] 7.5 mg 5-12 tablets by ity of tablet 00:00: mouth 3 [place] (three) Medical times Branch daily. busPIRone 2021-0 Yes [id number] 18.75mg Take 2.5 [facility] 7.5 mg 5-12 tablets by ity of tablet 00:00: mouth 3 [place] (three) Medical times Branch daily. busPIRone 2021-0 Yes [id number] 18.75mg Take 2.5 [facility] 7.5 mg 5-12 tablets by ity of tablet 00:00: mouth 3 [place] (three) Medical times Branch daily. busPIRone 2021-0 Yes [id number] 18.75mg Take 2.5 [facility] 7.5 mg 5-12 tablets by ity of tablet 00:00: mouth 3 [place] (three) Medical times Branch daily. busPIRone 2021-0 Yes [id number] 18.75mg Take 2.5 [facility] 7.5 mg 5-12 tablets by ity of tablet 00:00: mouth (three) Medical times Branch daily. busPIRone 2022-0 Yes [id number] 18.75mg Take 2.5 [facility] 7.5 mg 5-12 tablets by ity of tablet 00:00: mouth (three) Medical times Branch daily. busPIRone 2022-0 Yes [id number] 18.75mg Take 2.5 [facility] 7.5 mg 5-12 tablets by ity of tablet 00:00: mouth (three) Medical times Branch daily. busPIRone 2022-0 Yes [id number] 18.75mg Take 2.5 [facility] 7.5 mg 5-12 tablets by ity of tablet 00:00: mouth (three) Medical times Branch daily. busPIRone 2022-0 Yes [id number] 18.75mg Take 2.5 [facility] 7.5 mg 5-12 tablets by ity of tablet 00:00: mouth (three) Medical times Branch daily. busPIRone 2022-0 Yes [id number] 18.75mg Take 2.5 [facility] 7.5 mg 5-12 tablets by ity of tablet 00:00: mouth (three) Medical times Branch daily. busPIRone 2022-0 Yes [id number] 18.75mg Take 2.5 [facility] 7.5 mg 5-12 tablets by ity of tablet 00:00: mouth (three) Medical times Branch daily. busPIRone 2022-0 Yes [id number] 18.75mg Take 2.5 [facility] 7.5 mg 5-12 tablets by ity of tablet 00:00: mouth (three) Medical times Branch daily. busPIRone 2022-0 Yes [id number] 18.75mg Take 2.5 [facility] 7.5 mg 5-12 tablets by ity of tablet 00:00: mouth (three) Medical times Branch daily. busPIRone 2022-0 Yes [id number] 18.75mg Take 2.5 [facility] 7.5 mg 5-12 tablets by ity of tablet 00:00: mouth (three) Medical times Branch daily. busPIRone 2022-0 Yes [id number] 18.75mg Take 2.5 [facility] 7.5 mg 5-12 tablets by ity of tablet 00:00: mouth (three) Medical times Branch daily. busPIRone 2022-0 Yes [id number] 18.75mg Take 2.5 [facility] 7.5 mg 5-12 tablets by ity of tablet 00:00: mouth (three) Medical times Branch daily. busPIRone 2022-0 Yes [id number] 18.75mg Take 2.5 [facility] 7.5 mg 5-12 tablets by ity of tablet 00:00: mouth (three) Medical times Branch daily. busPIRone 2022-0 Yes [id number] 18.75mg Take 2.5 [facility] 7.5 mg 5-12 tablets by ity of tablet 00:00: mouth (three) Medical times Branch daily. busPIRone 2022-0 Yes [id number] 18.75mg Take 2.5 [facility] 7.5 mg 5-12 tablets by ity of tablet 00:00: mouth (three) Medical times Branch daily. busPIRone 2022-0 Yes [id number] 18.75mg Take 2.5 [facility] 7.5 mg 5-12 tablets by ity of tablet 00:00: mouth () Medical times Branch daily. busPIRone 2022-0 Yes [id number] 18.75mg Take 2.5 [facility] 7.5 mg 5-12 tablets by ity of tablet 00:00: mouth () Medical times Branch daily. busPIRone 2022-0 Yes [id number] 18.75mg Take 2.5 [facility] 7.5 mg 5-12 tablets by ity of tablet 00:00: mouth (three) Medical times Branch daily. busPIRone 2022-0 Yes [id number] 18.75mg Take 2.5 [facility] 7.5 mg 5-12 tablets by ity of tablet 00:00: mouth (three) Medical times Branch daily. busPIRone 2022-0 Yes [id number] 18.75mg Take 2.5 [facility] 7.5 mg 5-12 tablets by ity of tablet 00:00: mouth (three) Medical times Branch daily. busPIRone 2022-0 Yes [id number] 18.75mg Take 2.5 [facility] 7.5 mg 5-12 tablets by ity of tablet 00:00: mouth (three) Medical times Branch daily. busPIRone 2022-0 Yes [id number] 18.75mg Take 2.5 [facility] 7.5 mg 5-12 tablets by ity of tablet 00:00: mouth (three) Medical times Branch daily. busPIRone 2022-0 Yes [id number] 18.75mg Take 2.5 [facility] 7.5 mg 5-12 tablets by ity of tablet 00:00: mouth (three) Medical times Branch daily. busPIRone 2022-0 Yes [id number] 18.75mg Take 2.5 [facility] 7.5 mg 5-12 tablets by ity of tablet 00:00: mouth (three) Medical times Branch daily. busPIRone 2022-0 Yes [id number] 18.75mg Take 2.5 [facility] 7.5 mg 5-12 tablets by ity of tablet 00:00: mouth (three) Medical times Branch daily. busPIRone 2022-0 Yes [id number] 18.75mg Take 2.5 [facility] 7.5 mg 5-12 tablets by ity of tablet 00:00: mouth (three) Medical times Branch daily. busPIRone 2022-0 Yes [id number] 18.75mg Take 2.5 [facility] 7.5 mg 5-12 tablets by ity of tablet 00:00: mouth (three) Medical times Branch daily. busPIRone 2022-0 Yes [id number] 18.75mg Take 2.5 [facility] 7.5 mg 5-12 tablets by ity of tablet 00:00: mouth (three) Medical times Branch daily. busPIRone 2022-0 Yes [id number] 18.75mg Take 2.5 [facility] 7.5 mg 5-12 tablets by ity of tablet 00:00: mouth (three) Medical times Branch daily. busPIRone 2022-0 Yes [id number] 18.75mg Take 2.5 [facility] 7.5 mg 5-12 tablets by ity of tablet 00:00: mouth (three) Medical times Branch daily. busPIRone 2022-0 Yes [id number] 18.75mg Take 2.5 [facility] 7.5 mg 5-12 tablets by ity of tablet 00:00: mouth (three) Medical times Branch daily. busPIRone 2022-0 Yes [id number] 18.75mg Take 2.5 [facility] 7.5 mg 5-12 tablets by ity of tablet 00:00: mouth (three) Medical times Branch daily. busPIRone 2022-0 Yes [id number] 18.75mg Take 2.5 [facility] 7.5 mg 5-12 tablets by ity of tablet 00:00: mouth (three) Medical times Branch daily. busPIRone 2022-0 Yes [id number] 18.75mg Take 2.5 [facility] 7.5 mg 5-12 tablets by ity of tablet 00:00: mouth (three) Medical times Branch daily. busPIRone 2022-0 Yes [id number] 18.75mg Take 2.5 [facility] 7.5 mg 5-12 tablets by ity of tablet 00:00: mouth (three) Medical times Branch daily. busPIRone 2022-0 Yes [id number] 18.75mg Take 2.5 [facility] 7.5 mg 5-12 tablets by ity of tablet 00:00: mouth (three) Medical times Branch daily. busPIRone 2022-0 Yes [id number] 18.75mg Take 2.5 [facility] 7.5 mg 5-12 tablets by ity of tablet 00:00: mouth (three) Medical times Branch daily. busPIRone 2022-0 Yes [id number] 18.75mg Take 2.5 [facility] 7.5 mg 5-12 tablets by ity of tablet 00:00: mouth (three) Medical times Branch daily. busPIRone 2022-0 Yes [id number] 18.75mg Take 2.5 [facility] 7.5 mg 5-12 tablets by ity of tablet 00:00: mouth 3 (three) Medical times Branch daily. busPIRone 2022-0 Yes [id number] 18.75mg Take 2.5 [facility] 7.5 mg 5-12 tablets by ity of tablet 00:00: mouth 3 [place] 00 (three) Medical times Branch daily. busPIRone Yes [id number] 18.75mg Take 2.5 [facility] 7.5 mg 5-12 tablets by ity of tablet 00:00: mouth 3 [place] 00 (three) Medical times Branch daily. busPIRone 2- No [id number] 18.75mg Take 2.5 [facility] 7.5 mg 5-12 12-05 tablets by ity of tablet 00:00: 00:00 mouth 3 [place] 00 :00 (three) Medical times Branch daily. busPIRone 2021- No [id number] 18.75mg Take 2.5 [facility] 7.5 mg 5-12 12-05 tablets by ity of tablet 00:00: 00:00 mouth 3 [place] 00 :00 (three) Medical times Branch daily. Yes [id number] 1{tbl} Take 1 U nivers multivitami 5-05 tablet by ity of n ( 00:00: mouth [place] VITAMIN) 00 daily. Medical tablet Branch Yes [id number] 1{tbl} Take 1 U nivers multivitami 5-05 tablet by ity of n ( 00:00: mouth [place] VITAMIN) 00 daily. Medical tablet Branch Yes [id number] 1{tbl} Take 1 U nivers multivitami 5-05 tablet by ity of n ( 00:00: mouth [place] VITAMIN) 00 daily. Medical tablet Branch Yes [id number] 1{tbl} Take 1 U nivers multivitami 5-05 tablet by ity of n ( 00:00: mouth [place] VITAMIN) 00 daily. Medical tablet Branch Yes [id number] 1{tbl} Take 1 U nivers multivitami 5-05 tablet by ity of n ( 00:00: mouth [place] VITAMIN) 00 daily. Medical tablet Branch Yes [id number] 1{tbl} Take 1 U nivers multivitami 5-05 tablet by ity of n ( 00:00: mouth [place] VITAMIN) 00 daily. Medical tablet Branch Yes [id number] 1{tbl} Take 1 U nivers multivitami 5-05 tablet by ity of n ( 00:00: mouth [place] VITAMIN) 00 daily. Medical tablet Branch Yes [id number] 1{tbl} Take 1 U nivers multivitami 5-05 tablet by ity of n ( 00:00: mouth [place] VITAMIN) 00 daily. Medical tablet Branch Yes [id number] 1{tbl} Take 1 U nivers multivitami 5-05 tablet by ity of n ( 00:00: mouth [place] VITAMIN) 00 daily. Medical tablet Branch Yes [id number] 1{tbl} Take 1 U nivers multivitami 5-05 tablet by ity of n ( 00:00: mouth [place] VITAMIN) 00 daily. Medical tablet Branch Yes [id number] 1{tbl} Take 1 U nivers multivitami 5-05 tablet by ity of n ( 00:00: mouth [place] VITAMIN) 00 daily. Medical tablet Branch Yes [id number] 1{tbl} Take 1 U nivers multivitami 5-05 tablet by ity of n ( 00:00: mouth [place] VITAMIN) 00 daily. Medical tablet Branch Yes [id number] 1{tbl} Take 1 U nivers multivitami 5-05 tablet by ity of n ( 00:00: mouth [place] VITAMIN) 00 daily. Medical tablet Branch Yes [id number] 1{tbl} Take 1 U nivers multivitami 5-05 tablet by ity of n ( 00:00: mouth [place] VITAMIN) 00 daily. Medical tablet Branch Yes [id number] 1{tbl} Take 1 U nivers multivitami 5-05 tablet by ity of n ( 00:00: mouth [place] VITAMIN) 00 daily. Medical tablet Branch Yes [id number] 1{tbl} Take 1 U nivers multivitami 5-05 tablet by ity of n ( 00:00: mouth [place] VITAMIN) 00 daily. Medical tablet Branch Yes [id number] 1{tbl} Take 1 U nivers multivitami 5-05 tablet by ity of n ( 00:00: mouth [place] VITAMIN) 00 daily. Medical tablet Branch Yes [id number] 1{tbl} Take 1 U nivers multivitami 5-05 tablet by ity of n ( 00:00: mouth [place] VITAMIN) 00 daily. Medical tablet Branch Yes [id number] 1{tbl} Take 1 U nivers multivitami 5-05 tablet by ity of n ( 00:00: mouth [place] VITAMIN) 00 daily. Medical tablet Branch Yes [id number] 1{tbl} Take 1 U nivers multivitami 5-05 tablet by ity of n ( 00:00: mouth [place] VITAMIN) 00 daily. Medical tablet Branch Yes [id number] 1{tbl} Take 1 U nivers multivitami 5-05 tablet by ity of n ( 00:00: mouth [place] VITAMIN) 00 daily. Medical tablet Branch Yes [id number] 1{tbl} Take 1 U nivers multivitami 5-05 tablet by ity of n ( 00:00: mouth [place] VITAMIN) 00 daily. Medical tablet Branch Yes [id number] 1{tbl} Take 1 U nivers multivitami 5-05 tablet by ity of n ( 00:00: mouth [place] VITAMIN) 00 daily. Medical tablet Branch Yes [id number] 1{tbl} Take 1 U nivers multivitami 5-05 tablet by ity of n ( 00:00: mouth [place] VITAMIN) 00 daily. Medical tablet Branch Yes [id number] 1{tbl} Take 1 U nivers multivitami 5-05 tablet by ity of n ( 00:00: mouth [place] VITAMIN) 00 daily. Medical tablet Branch Yes [id number] 1{tbl} Take 1 U nivers multivitami 5-05 tablet by ity of n ( 00:00: mouth [place] VITAMIN) 00 daily. Medical tablet Branch Yes [id number] 1{tbl} Take 1 U nivers multivitami 5-05 tablet by ity of n ( 00:00: mouth [place] VITAMIN) 00 daily. Medical tablet Branch Yes [id number] 1{tbl} Take 1 U nivers multivitami 5-05 tablet by ity of n ( 00:00: mouth [place] VITAMIN) 00 daily. Medical tablet Branch Yes [id number] 1{tbl} Take 1 U nivers multivitami 5-05 tablet by ity of n ( 00:00: mouth [place] VITAMIN) 00 daily. Medical tablet Branch Yes [id number] 1{tbl} Take 1 U nivers multivitami 5-05 tablet by ity of n ( 00:00: mouth [place] VITAMIN) 00 daily. Medical tablet Branch Yes [id number] 1{tbl} Take 1 U nivers multivitami 5-05 tablet by ity of n ( 00:00: mouth [place] VITAMIN) 00 daily. Medical tablet Branch Yes [id number] 1{tbl} Take 1 U nivers multivitami 5-05 tablet by ity of n ( 00:00: mouth [place] VITAMIN) 00 daily. Medical tablet Branch Yes [id number] 1{tbl} Take 1 U nivers multivitami 5-05 tablet by ity of n ( 00:00: mouth [place] VITAMIN) 00 daily. Medical tablet Branch Yes [id number] 1{tbl} Take 1 U nivers multivitami 5-05 tablet by ity of n ( 00:00: mouth [place] VITAMIN) 00 daily. Medical tablet Branch Yes [id number] 1{tbl} Take 1 U nivers multivitami 5-05 tablet by ity of n ( 00:00: mouth [place] VITAMIN) 00 daily. Medical tablet Branch Yes [id number] 1{tbl} Take 1 U nivers multivitami 5-05 tablet by ity of n ( 00:00: mouth [place] VITAMIN) 00 daily. Medical tablet Branch Yes [id number] 1{tbl} Take 1 U nivers multivitami 5-05 tablet by ity of n ( 00:00: mouth [place] VITAMIN) 00 daily. Medical tablet Branch Yes [id number] 1{tbl} Take 1 U nivers multivitami 5-05 tablet by ity of n ( 00:00: mouth [place] VITAMIN) 00 daily. Medical tablet Branch Yes [id number] 1{tbl} Take 1 U nivers multivitami 5-05 tablet by ity of n ( 00:00: mouth [place] VITAMIN) 00 daily. Medical tablet Branch Yes [id number] 1{tbl} Take 1 U nivers multivitami 5-05 tablet by ity of n ( 00:00: mouth [place] VITAMIN) 00 daily. Medical tablet Branch Yes [id number] 1{tbl} Take 1 U nivers multivitami 5-05 tablet by ity of n ( 00:00: mouth [place] VITAMIN) 00 daily. Medical tablet Branch Yes [id number] 1{tbl} Take 1 U nivers multivitami 5-05 tablet by ity of n ( 00:00: mouth [place] VITAMIN) 00 daily. Medical tablet Branch Yes [id number] 1{tbl} Take 1 U nivers multivitami 5-05 tablet by ity of n ( 00:00: mouth [place] VITAMIN) 00 daily. Medical tablet Branch Yes [id number] 1{tbl} Take 1 U nivers multivitami 5-05 tablet by ity of n ( 00:00: mouth [place] VITAMIN) 00 daily. Medical tablet Branch Yes [id number] 1{tbl} Take 1 U nivers multivitami 5-05 tablet by ity of n ( 00:00: mouth [place] VITAMIN) 00 daily. Medical tablet Branch Yes [id number] 1{tbl} Take 1 U nivers multivitami 5-05 tablet by ity of n ( 00:00: mouth [place] VITAMIN) 00 daily. Medical tablet Branch Yes [id number] 1{tbl} Take 1 U nivers multivitami 5-05 tablet by ity of n ( 00:00: mouth [place] VITAMIN) 00 daily. Medical tablet Branch 2021- No [id number] 1{tbl} Take 1 [facility] multivitami 5-05 12-07 tablet by it y [facility] n ( [place] :00 daily. Medical tablet Branch lithium 600 Yes bipolar 600mg QD Take [address] [facility] MG capsule 7-19 disorder in mg by L es 17:56: remission mouth Medical 35 every Center [...] ukes 00:00: remission mouth Medical 00 nightly. [place] lithium 300 2020-0 Yes bipolar 900mg QD Take [address] [facility] MG capsule 7-15 disorder in mg by L ukes 00:00: remission mouth Medical 00 nightly. [place] lithium 300 2020-0 Yes bipolar 900mg QD Take [address] [facility] MG capsule 7-15 disorder in mg by L ukes 00:00: remission mouth Medical 00 nightly. [place] lithium 300 2020-0 Yes bipolar 900mg QD Take [address] [facility] MG capsule 7-15 disorder in mg by L ukes 00:00: remission mouth Medical 00 nightly. [place] lithium 300 2020-0 Yes bipolar 900mg QD Take [address] [facility] MG capsule 7-15 disorder in mg by L ukes 00:00: remission mouth Medical 00 nightly. [place] lithium 300 2020-0 Yes bipolar 900mg QD Take [address] [facility] MG capsule 7-15 disorder in mg by L ukes 00:00: remission mouth Medical 00 nightly. Center Immunizations Ordered Filled Date Status Comments Source Immunization Name Immunization Name Rho (d) Immune 2022-02-12 Completed [facility]00 [facility] Rho (d) Immune 2022-02-12 Completed [facility] 00:00:00 [facility] Rho (d) Immune 2022-02-12 Completed [facility] 00:00:00 [facility] Rho (d) Immune 2022-02-12 Completed [facility] 00:00:00 [facility] Rho (d) Immune 2022-02-12 Completed [facility] 00:00:00 [facility] Rho (d) Immune 2022-02-12 Completed [facility] 00:00:00 [facility] Rho (d) Immune 2022-02-12 Completed [facility] 00:00:00 [facility] Rho (d) Immune 2022-02-12 Completed [facility] 00:00:00 [facility] Rho (d) Immune 2022-02-12 Completed [facility] 00:00:00 [facility] Rho (d) Immune 2022-02-12 Completed [facility] Glob[facility] 00:00:00 [facility] Rho (d) Immune 2022-02-12 Completed [facility] 00:00:00 [facility]ly [facility] Rho (d) Immune 2022-02-12 Completed [facility] 00:00:00 [facility] Rho (d) Immune 2022-02-12 Completed [facility] 00:00:00 [facility] Rho (d) Immune 2022-02-12 Completed [facility] 00:00:00 [facility] Rho (d) Immune 2022-02-12 Completed [facility] 00:00:00 [facility] Rho (d) Immune 2022-02-12 Completed [facility] 00:00:00 [facility] Rho (d) Immune 2022-02-12 Completed [facility] 00:00:00 [facility] Rho (d) Immune 2022-02-12 Completed [facility] 00:00:00 [facility] Rho (d) Immune 2022-02-12 Completed [facility] 00:00:00 [facility] Rho (d) Immune 2022-02-12 Completed [facility] 00:00:00 [facility] Rho (d) Immune 2022-02-12 Completed [facility] 00:00:00 [facility] Rho (d) Immune 2022-02-12 Completed [facility] 00:00:00 [facility] Rho (d) Immune 2022-02-12 Completed [facility] 00:00:00 [facility] Rho (d) Immune 2022-02-12 Completed [facility] 00:00:00 [facility] Rho (d) Immune 2022-02-12 Completed [facility] 00:00:00 [facility] Rho (d) Immune 2022-02-12 Completed [facility] 00:00:00 [facility] Rho (d) Immune 2022-02-12 Completed [facility] 00:00:00 [facility] Rho (d) Immune 2022-02-12 Completed [facility] 00:00:00 [facility] Rho (d) Immune 2022-02-12 Completed [facility] 00:00:00 [facility] Rho (d) Immune 2022-02-12 Completed [facility] 00:00:00 [facility] Rho (d) Immune 2022-02-12 Completed [facility] 00:00:00 [facility] Rho (d) Immune 2022-02-12 Completed [facility] 00:00:00 [facility] Rho (d) Immune 2022-02-12 Completed [facility] 00:00:00 [facility] Rho (d) Immune 2022-02-12 Completed [facility] 00:00:00 [facility] Rho (d) Immune 2022-02-12 Completed [facility] 00:00:00 [facility] Rho (d) Immune 2022-02-12 Completed [facility] 00:00:00 [facility] Rho (d) Immune 2022-02-12 Completed [facility] 00:00:00 [facility] Rho (d) Immune 2022-02-12 Completed [facility] 00:00:00 [facility] Rho (d) Immune 2022-02-12 Completed [facility] 00:00:00 [facility] Rho (d) Immune 2022-02-12 Completed [facility] 00:00:00 [facility] Rho (d) Immune 2022-02-12 Completed [facility] 00:00:00 [facility] Rho (d) Immune 2022-02-12 Completed [facility] 00:00:00 [facility] Rho (d) Immune 2022-02-12 Completed [facility] 00:00:00 [facility] Rho (d) Immune 2022-02-12 Completed [facility] 00:00:00 [facility] Rho (d) Immune 2022-02-12 Completed [facility] 00:00:00 [facility] Rho (d) Immune 2022-02-12 Completed [facility] 00:00:00 [facility] Rho (d) Immune 2022-02-12 Completed [facility] 00:00:00 [facility] Rho (d) Immune 2022-02-12 Completed [facility] 00:00:00 [facility] Rho (d) Immune 2022-02-12 Completed [facility] 00:00:00 [facility] Rho (d) Immune 2022-02-12 Completed [facility] 00:00:00 [facility] Rho (d) Immune 2022-02-12 Completed [facility] 00:00:00 [facility] Rho (d) Immune 2022-02-12 Completed [facility] 00:00:00 [facility] Rho (d) Immune 2022-02-12 Completed [facility] 00:00:00 [facility] Rho (d) Immune 2022-02-12 Completed [facility] 00:00:00 [facility] Rho (d) Immune 2022-02-12 Completed [facility] 00:00:00 [facility] Rho (d) Immune 2022-02-12 Completed [facility] 00:00:00 [facility] Rho (d) Immune 2022-02-12 Completed [facility] 00:00:00 [facility] Rho (d) Immune 2022-02-12 Completed [facility] 00:00:00 [facility] Rho (d) Immune 2022-02-12 Completed [facility] 00:00:00 [facility] Rho (d) Immune 2022-01-02 Completed [facility] 00:00:00 [facility] Rho (d) Immune 2022-01-02 Completed [facility] 00:00:00 [facility] Rho (d) Immune 2022-01-02 Completed [facility] 00:00:00 [facility] Rho (d) Immune 2022-01-02 Completed [facility] 00:00:00 [facility] Rho (d) Immune 2022-01-02 Completed [facility] 00:00:00 [facility] Rho (d) Immune 2022-01-02 Completed [facility] 00:00:00 [facility] Rho (d) Immune 2022-01-02 Completed [facility] 00:00:00 [facility] Rho (d) Immune 2022-01-02 Completed [facility] 00:00:00 [facility] Rho (d) Immune 2022-01-02 Completed [facility] 00:00:00 [facility] Rho (d) Immune 2022-01-02 Completed [facility] 00:00:00 [facility] Rho (d) Immune 2022-01-02 Completed [facility] 00:00:00 [facility] Rho (d) Immune 2022-01-02 Completed [facility] 00:00:00 [facility] Rho (d) Immune 2022-01-02 Completed [facility] 00:00:00 [facility] Rho (d) Immune 2022-01-02 Completed [facility] 00:00:00 [facility] Rho (d) Immune 2022-01-02 Completed [facility] 00:00:00 [facility] Rho (d) Immune 2022-01-02 Completed [facility] 00:00:00 [facility] Rho (d) Immune 2022-01-02 Completed [facility] 00:00:00 [facility] Rho (d) Immune 2022-01-02 Completed [facility] 00:00:00 [facility] Rho (d) Immune 2022-01-02 Completed [facility] 00:00:00 [facility] Rho (d) Immune 2022-01-02 Completed [facility] 00:00:00 [facility] Rho (d) Immune 2022-01-02 Completed [facility] 00:00:00 [facility] Rho (d) Immune 2022-01-02 Completed [facility] 00:00:00 [facility] Rho (d) Immune 2022-01-02 Completed [facility] 00:00:00 [facility] Rho (d) Immune 2022-01-02 Completed [facility] 00:00:00 [facility] Rho (d) Immune 2022-01-02 Completed [facility] 00:00:00 [facility] Rho (d) Immune 2022-01-02 Completed [facility] 00:00:00 [facility] Rho (d) Immune 2022-01-02 Completed [facility] 00:00:00 [facility] Rho (d) Immune 2022-01-02 Completed [facility] 00:00:00 [facility] Rho (d) Immune 2022-01-02 Completed [facility] 00:00:00 [facility] Rho (d) Immune 2022-01-02 Completed [facility] 00:00:00 [facility] Rho (d) Immune 2022-01-02 Completed [facility] 00:00:00 [facility] Rho (d) Immune 2022-01-02 Completed [facility] 00:00:00 [facility] Rho (d) Immune 2022-01-02 Completed [facility] 00:00:00 [facility] Rho (d) Immune 2022-01-02 Completed [facility] 00:00:00 [facility] Rho (d) Immune 2022-01-02 Completed [facility] 00:00:00 [facility] Rho (d) Immune 2022-01-02 Completed [facility] 00:00:00 [facility] Rho (d) Immune 2022-01-02 Completed [facility] 00:00:00 [facility] Rho (d) Immune 2022-01-02 Completed [facility] 00:00:00 [facility] Rho (d) Immune 2022-01-02 Completed [facility] 00:00:00 [facility] Rho (d) Immune 2022-01-02 Completed [facility] 00:00:00 [facility] Rho (d) Immune 2022-01-02 Completed [facility] 00:00:00 [facility] Rho (d) Immune 2022-01-02 Completed [facility] 00:00:00 [facility] Rho (d) Immune 2022-01-02 Completed [facility] 00:00:00 [facility] Rho (d) Immune 2022-01-02 Completed [facility] 00:00:00 [facility] Rho (d) Immune 2022-01-02 Completed [facility] 00:00:00 [facility] Rho (d) Immune 2022-01-02 Completed [facility] 00:00:00 [facility] Rho (d) Immune 2022-01-02 Completed [facility] 00:00:00 [facility] Rho (d) Immune 2022-01-02 Completed [facility] 00:00:00 [facility] Rho (d) Immune 2022-01-02 Completed [facility] 00:00:00 [facility] Rho (d) Immune 2022-01-02 Completed [facility] 00:00:00 [facility] Rho (d) Immune 2022-01-02 Completed [facility] 00:00:00 [facility] Rho (d) Immune 2022-01-02 Completed [facility] 00:00:00 [facility] Rho (d) Immune 2022-01-02 Completed [facility] 00:00:00 [facility] Rho (d) Immune 2022-01-02 Completed [facility] 00:00:00 [facility] Rho (d) Immune 2022-01-02 Completed [facility] 00:00:00 [facility] Rho (d) Immune 2022-01-02 Completed [facility] 00:00:00 [facility] Rho (d) Immune 2022-01-02 Completed [facility] 00:00:00 [facility] Rho (d) Immune 2022-01-02 Completed [facility] 00:00:00 [facility] Rho (d) Immune 2022-01-02 Completed [facility] 00:00:00 [facility] Rho (d) Immune 2022-01-02 Completed [facility] 00:00:00 [facility] Rho (d) Immune 2022-01-02 Completed [facility] 00:00:00 [facility] Rho (d) Immune 2022-01-02 Completed [facility] 00:00:00 [facility] Rho (d) Immune 2022-01-02 Completed [facility] 00:00:00 [facility] Rho (d) Immune 2022-01-02 Completed [facility] 00:00:00 [facility] Rho (d) Immune 2022-01-02 Completed [facility] 00:00:00 [facility] Rho (d) Immune 2022-01-02 Completed [facility] 00:00:00 [facility] Rho (d) Immune 2022-01-02 Completed [facility] 00:00:00 [facility] Rho (d) Immune 2022-01-02 Completed [facility] 00:00:00 [facility] Rho (d) Immune 2022-01-02 Completed [facility] 00:00:00 [facility] Rho (d) Immune 2022-01-02 Completed [facility] 00:00:00 [facility] Rho (d) Immune 2022-01-02 Completed [facility] 00:00:00 [facility] Rho (d) Immune 2022-01-02 Completed [facility] 00:00:00 [facility] Rho (d) Immune 2022-01-02 Completed [facility] 00:00:00 [facility] Rho (d) Immune 2022-01-02 Completed [facility] 00:00:00 [facility] Rho (d) Immune 2022-01-02 Completed [facility] 00:00:00 [facility] Rho (d) Immune 2022-01-02 Completed [facility] 00:00:00 [facility] Rho (d) Immune 2022-01-02 Completed [facility] 00:00:00 [facility] Rho (d) Immune 2022-01-02 Completed [facility] 00:00:00 [facility] Rho (d) Immune 2022-01-02 Completed [facility] 00:00:00 [facility] Rho (d) Immune 2022-01-02 Completed [facility] 00:00:00 [facility] Rho (d) Immune 2022-01-02 Completed [facility] 00:00:00 [facility] Rho (d) Immune 2022-01-02 Completed [facility] 00:00:00 [facility] Rho (d) Immune 2022-01-02 Completed [facility] 00:00:00 [facility] Rho (d) Immune 2022-01-02 Completed [facility] 00:00:00 [facility] Rho (d) Immune 2022-01-02 Completed [facility] 00:00:00 [facility] Rho (d) Immune 2022-01-02 Completed [facility] 00:00:00 [facility] Rho (d) Immune 2022-01-02 Completed [facility] 00:00:00 [facility] TDAP 2021-12-17 Completed [facility] of 00:00:00 [facility] TDAP 2021-12-17 Completed [facility] of 00:00:00 [facility] TDAP 2021-12-17 Completed [facility] of 00:00:00 [facility] TDAP 2021-12-17 Completed [facility] of 00:00:00 [facility] TDAP 2021-12-17 Completed [facility] of 00:00:00 [facility] TDAP 2021-12-17 Completed [facility] of 00:00:00 [facility] TDAP 2021-12-17 Completed [facility] of 00:00:00 [facility] TDAP 2021-12-17 Completed [facility] of 00:00:00 [facility] TDAP 2021-12-17 Completed [facility] of 00:00:00 [facility] TDAP 2021-12-17 Completed [facility] of 00:00:00 [facility] TDAP 2021-12-17 Completed [facility] of 00:00:00 [facility] TDAP 2021-12-17 Completed [facility] of 00:00:00 [facility] TDAP 2021-12-17 Completed [facility] of 00:00:00 [facility] TDAP 2021-12-17 Completed [facility] of 00:00:00 [facility] TDAP 2021-12-17 Completed [facility] of 00:00:00 [facility] TDAP 2021-12-17 Completed [facility] of 00:00:00 [facility] TDAP 2021-12-17 Completed [facility] of 00:00:00 [facility] TDAP 2021-12-17 Completed [facility] of 00:00:00 [facility] TDAP 2021-12-17 Completed [facility] of 00:00:00 [facility] TDAP 2021-12-17 Completed [facility] of 00:00:00 [facility] TDAP 2021-12-17 Completed [facility] of 00:00:00 [facility] TDAP 2021-12-17 Completed [facility] of 00:00:00 [facility] TDAP 2021-12-17 Completed [facility] of 00:00:00 [facility] TDAP 2021-12-17 Completed [facility] of 00:00:00 [facility] TDAP 2021-12-17 Completed [facility] of 00:00:00 [facility] TDAP 2021-12-17 Completed [facility] of 00:00:00 [facility] TDAP 2021-12-17 Completed [facility] of 00:00:00 [facility] TDAP 2021-12-17 Completed [facility] of 00:00:00 [facility] TDAP 2021-12-17 Completed [facility] of 00:00:00 [facility] TDAP 2021-12-17 Completed [facility] of 00:00:00 [facility] TDAP 2021-12-17 Completed [facility] of 00:00:00 [facility] TDAP 2021-12-17 Completed [facility] of 00:00:00 [facility] TDAP 2021-12-17 Completed [facility] of 00:00:00 [facility] TDAP 2021-12-17 Completed [facility] of 00:00:00 [facility] TDAP 2021-12-17 Completed [facility] of 00:00:00 [facility] TDAP 2021-12-17 Completed [facility] of 00:00:00 [facility] TDAP 2021-12-17 Completed [facility] of 00:00:00 [facility] TDAP 2021-12-17 Completed [facility] of 00:00:00 [facility] TDAP 2021-12-17 Completed [facility] of 00:00:00 [facility] TDAP 2021-12-17 Completed [facility] of 00:00:00 [facility] TDAP 2021-12-17 Completed [facility] of 00:00:00 [facility] TDAP 2021-12-17 Completed [facility] of 00:00:00 [facility] TDAP 2021-12-17 Completed [facility] of 00:00:00 [facility] TDAP 2021-12-17 Completed [facility] of 00:00:00 [facility] TDAP 2021-12-17 Completed [facility] of 00:00:00 [facility] TDAP 2021-12-17 Completed [facility] of 00:00:00 [facility] TDAP 2021-12-17 Completed [facility] of 00:00:00 [facility] TDAP 2021-12-17 Completed [facility] of 00:00:00 [facility] TDAP 2021-12-17 Completed [facility] of 00:00:00 [facility] TDAP 2021-12-17 Completed [facility] of 00:00:00 [facility] TDAP 2021-12-17 Completed [facility] of 00:00:00 [facility] TDAP 2021-12-17 Completed [facility] of 00:00:00 [facility] TDAP 2021-12-17 Completed [facility] of 00:00:00 [facility] TDAP 2021-12-17 Completed [facility] of 00:00:00 [facility] TDAP 2021-12-17 Completed [facility] of 00:00:00 [facility] TDAP 2021-12-17 Completed [facility] of 00:00:00 [facility] TDAP 2021-12-17 Completed [facility] of 00:00:00 [facility] TDAP 2021-12-17 Completed [facility] of 00:00:00 [facility] TDAP 2021-12-17 Completed [facility] of 00:00:00 [facility] TDAP 2021-12-17 Completed [facility] of 00:00:00 [facility] TDAP 2021-12-17 Completed [facility] of 00:00:00 [facility] TDAP 2021-12-17 Completed [facility] of 00:00:00 [facility] TDAP 2021-12-17 Completed [facility] of 00:00:00 [facility] TDAP 2021-12-17 Completed [facility] of 00:00:00 [facility] TDAP 2021-12-17 Completed [facility] of 00:00:00 [facility] TDAP 2021-12-17 Completed [facility] of 00:00:00 [facility] TDAP 2021-12-17 Completed [facility] of 00:00:00 [facility] TDAP 2021-12-17 Completed [facility] of 00:00:00 [facility] TDAP 2021-12-17 Completed [facility] of 00:00:00 [facility] TDAP 2021-12-17 Completed [facility] of 00:00:00 [facility] TDAP 2021-12-17 Completed [facility] of 00:00:00 [facility] TDAP 2021-12-17 Completed [facility] of 00:00:00 [facility] TDAP 2021-12-17 Completed [facility] of 00:00:00 [facility] TDAP 2021-12-17 Completed [facility] of 00:00:00 [facility] TDAP 2021-12-17 Completed [facility] of 00:00:00 [facility] TDAP 2021-12-17 Completed [facility] 00:00:00 [facility] TDAP 2021-12-17 Completed [facility] of 00:00:00 [facility] TDAP 2021-12-17 Completed [facility] of 00:00:00 [facility] TDAP 2021-12-17 Completed [facility] of 00:00:00 [facility] TDAP 2021-12-17 Completed [facility] of 00:00:00 [facility] TDAP 2021-12-17 Completed [facility] of 00:00:00 [facility] TDAP 2021-12-17 Completed [facility] of 00:00:00 [facility] TDAP 2021-12-17 Completed [facility] of 00:00:00 [facility] TDAP 2021-12-17 Completed [facility] of 00:00:00 [facility] TDAP 2021-12-17 Completed [facility] of 00:00:00 [facility] TDAP 2021-12-17 Completed [facility] of 00:00:00 [facility] TDAP 2021-12-17 Completed [facility] of 00:00:00 [facility] TDAP 2021-12-17 Completed [facility] of 00:00:00 [facility] TDAP 2021-12-17 Completed [facility] of 00:00:00 [facility] TDAP 2021-12-17 Completed [facility] of 00:00:00 [facility] SARS-COV-2 COVID-19 2021-02-05 Completed [facility] of PFIZER VACCINE 00:00:00 [facility] SARS-COV-2 COVID-19 2021-02-05 Completed [facility] of PFIZER VACCINE 00:00:00 [facility] SARS-COV-2 COVID-19 2021-02-05 Completed [facility] of PFIZER VACCINE 00:00:00 [facility] SARS-COV-2 COVID-19 2021-02-05 Completed [facility] of PFIZER VACCINE 00:00:00 [facility] SARS-COV-2 COVID-19 2021-02-05 Completed [facility] PFIZER VACCINE 00:00:00 [facility] SARS-COV-2 COVID-19 2021-02-05 Completed [facility] PFIZER VACCINE 00:00:00 [facility] SARS-COV-2 COVID-19 2021-02-05 Completed [facility] of PFIZER VACCINE 00:00:00 [facility] SARS-COV-2 COVID-19 2021-02-05 Completed [facility] of PFIZER VACCINE 00:00:00 [facility] SARS-COV-2 COVID-19 2021-02-05 Completed [facility] of PFIZER VACCINE 00:00:00 [facility] SARS-COV-2 COVID-19 2021-02-05 Completed [facility] of PFIZER VACCINE 00:00:00 [facility] SARS-COV-2 COVID-19 2021-02-05 Completed [facility] of PFIZER VACCINE 00:00:00 [facility] SARS-COV-2 COVID-19 2021-02-05 Completed [facility] of PFIZER VACCINE 00:00:00 [facility] SARS-COV-2 COVID-19 2021-02-05 Completed [facility] of PFIZER VACCINE 00:00:00 [facility] SARS-COV-2 COVID-19 2021-02-05 Completed [facility] of PFIZER VACCINE 00:00:00 [facility] SARS-COV-2 COVID-19 2021-02-05 Completed [facility] PFIZER VACCINE 00:00:00 [facility] SARS-COV-2 COVID-19 2021-02-05 Completed [facility] PFIZER VACCINE 00:00:00 [facility] SARS-COV-2 COVID-19 2021-02-05 Completed [facility] PFIZER VACCINE 00:00:00 [facility] SARS-COV-2 COVID-19 2021-02-05 Completed [facility] PFIZER VACCINE 00:00:00 [facility] SARS-COV-2 COVID-19 2021-02-05 Completed [facility] PFIZER VACCINE 00:00:00 [facility] SARS-COV-2 COVID-19 2021-02-05 Completed [facility] PFIZER VACCINE 00:00:00 [facility] SARS-COV-2 COVID-19 2021-02-05 Completed [facility] PFIZER VACCINE 00:00:00 [facility] SARS-COV-2 COVID-19 2021-02-05 Completed [facility] PFIZER VACCINE 00:00:00 [facility] SARS-COV-2 COVID-19 2021-02-05 Completed [facility] PFIZER VACCINE 00:00:00 [facility] SARS-COV-2 COVID-19 2021-02-05 Completed [facility] PFIZER VACCINE 00:00:00 [facility] SARS-COV-2 COVID-19 2021-02-05 Completed [facility] PFIZER VACCINE 00:00:00 [facility] SARS-COV-2 COVID-19 2021-02-05 Completed [facility] PFIZER VACCINE 00:00:00 [facility] SARS-COV-2 COVID-19 2021-02-05 Completed [facility] PFIZER VACCINE 00:00:00 [facility] SARS-COV-2 COVID-19 2021-02-05 Completed [facility] PFIZER VACCINE 00:00:00 [facility] SARS-COV-2 COVID-19 2021-02-05 Completed [facility] PFIZER VACCINE 00:00:00 [facility] SARS-COV-2 COVID-19 2021-02-05 Completed [facility] PFIZER VACCINE 00:00:00 [facility] SARS-COV-2 COVID-19 2021-02-05 Completed [facility] PFIZER VACCINE 00:00:00 [facility] SARS-COV-2 COVID-19 2021-02-05 Completed [facility] PFIZER VACCINE 00:00:00 [facility] SARS-COV-2 COVID-19 2021-02-05 Completed [facility] PFIZER VACCINE 00:00:00 [facility] SARS-COV-2 COVID-19 2021-02-05 Completed [facility] PFIZER VACCINE 00:00:00 [facility] SARS-COV-2 COVID-19 2021-02-05 Completed [facility] PFIZER VACCINE 00:00:00 [facility] SARS-COV-2 COVID-19 2021-02-05 Completed [facility] PFIZER VACCINE 00:00:00 [facility] SARS-COV-2 COVID-19 2021-02-05 Completed [facility] PFIZER VACCINE 00:00:00 [facility] SARS-COV-2 COVID-19 2021-02-05 Completed [facility] PFIZER VACCINE 00:00:00 [facility] SARS-COV-2 COVID-19 2021-02-05 Completed [facility] PFIZER VACCINE 00:00:00 [facility] SARS-COV-2 COVID-19 2021-01-15 Completed [facility] PFIZER VACCINE 00:00:00 [facility] SARS-COV-2 COVID-19 2021-01-15 Completed [facility] PFIZER VACCINE 00:00:00 [facility] SARS-COV-2 COVID-19 2021-01-15 Completed [facility] PFIZER VACCINE 00:00:00 [facility] SARS-COV-2 COVID-19 2021-01-15 Completed [facility] PFIZER VACCINE 00:00:00 [facility] SARS-COV-2 COVID-19 2021-01-15 Completed [facility] PFIZER VACCINE 00:00:00 [facility] SARS-COV-2 COVID-19 2021-01-15 Completed [facility] PFIZER VACCINE 00:00:00 [facility] SARS-COV-2 COVID-19 2021-01-15 Completed [facility] PFIZER VACCINE 00:00:00 [facility] SARS-COV-2 COVID-19 2021-01-15 Completed [facility] PFIZER VACCINE 00:00:00 [facility] SARS-COV-2 COVID-19 2021-01-15 Completed [facility] PFIZER VACCINE 00:00:00 [facility] SARS-COV-2 COVID-19 2021-01-15 Completed [facility] PFIZER VACCINE 00:00:00 [facility] SARS-COV-2 COVID-19 2021-01-15 Completed [facility] PFIZER VACCINE 00:00:00 [facility] SARS-COV-2 COVID-19 2021-01-15 Completed [facility] PFIZER VACCINE 00:00:00 [facility] SARS-COV-2 COVID-19 2021-01-15 Completed [facility] PFIZER VACCINE 00:00:00 [facility] SARS-COV-2 COVID-19 2021-01-15 Completed [facility] PFIZER VACCINE 00:00:00 [facility] SARS-COV-2 COVID-19 2021-01-15 Completed [facility] PFIZER VACCINE 00:00:00 [facility] SARS-COV-2 COVID-19 2021-01-15 Completed [facility] PFIZER VACCINE 00:00:00 [facility] SARS-COV-2 COVID-19 2021-01-15 Completed [facility] PFIZER VACCINE 00:00:00 [facility] SARS-COV-2 COVID-19 2021-01-15 Completed [facility] PFIZER VACCINE 00:00:00 [facility] SARS-COV-2 COVID-19 2021-01-15 Completed [facility] PFIZER VACCINE 00:00:00 [facility] SARS-COV-2 COVID-19 2021-01-15 Completed [facility] PFIZER VACCINE 00:00:00 [facility] SARS-COV-2 COVID-19 2021-01-15 Completed [facility] PFIZER VACCINE 00:00:00 [facility] SARS-COV-2 COVID-19 2021-01-15 Completed [facility] PFIZER VACCINE 00:00:00 [facility] SARS-COV-2 COVID-19 2021-01-15 Completed [facility] PFIZER VACCINE 00:00:00 [facility] SARS-COV-2 COVID-19 2021-01-15 Completed [facility] PFIZER VACCINE 00:00:00 [facility] SARS-COV-2 COVID-19 2021-01-15 Completed [facility] PFIZER VACCINE 00:00:00 [facility] SARS-COV-2 COVID-19 2021-01-15 Completed [facility] PFIZER VACCINE 00:00:00 [facility] SARS-COV-2 COVID-19 2021-01-15 Completed [facility] PFIZER VACCINE 00:00:00 [facility] SARS-COV-2 COVID-19 2021-01-15 Completed [facility] PFIZER VACCINE 00:00:00 [facility] SARS-COV-2 COVID-19 2021-01-15 Completed [facility] PFIZER VACCINE 00:00:00 [facility] SARS-COV-2 COVID-19 2021-01-15 Completed [facility] PFIZER VACCINE 00:00:00 [facility] SARS-COV-2 COVID-19 2021-01-15 Completed [facility] PFIZER VACCINE 00:00:00 [facility] SARS-COV-2 COVID-19 2021-01-15 Completed [facility] PFIZER VACCINE 00:00:00 [facility] SARS-COV-2 COVID-19 2021-01-15 Completed [facility] PFIZER VACCINE 00:00:00 [facility] SARS-COV-2 COVID-19 2021-01-15 Completed [facility] PFIZER VACCINE 00:00:00 [facility] SARS-COV-2 COVID-19 2021-01-15 Completed [facility] PFIZER VACCINE 00:00:00 [facility] SARS-COV-2 COVID-19 2021-01-15 Completed [facility] PFIZER VACCINE 00:00:00 [facility] SARS-COV-2 COVID-19 2021-01-15 Completed [facility] PFIZER VACCINE 00:00:00 [facility] SARS-COV-2 COVID-19 2021-01-15 Completed [facility] PFIZER VACCINE 00:00:00 [facility] SARS-COV-2 COVID-19 2021-01-15 Completed [facility] PFIZER VACCINE 00:00:00 [facility] HPV9 2019-12-30 Completed [facility] 00:00:00 [facility] HPV9 2019-12-30 Completed [facility] 00:00:00 [facility] HPV9 2019-12-30 Completed [facility] 00:00:00 [facility] HPV9 2019-12-30 Completed [facility] 00:00:00 [facility] HPV9 2019-12-30 Completed [facility] 00:00:00 [facility] HPV9 2019-12-30 Completed [facility] 00:00:00 [facility] HPV9 2019-12-30 Completed [facility] 00:00:00 [facility] HPV9 2019-12-30 Completed [facility] 00:00:00 [facility] HPV9 2019-12-30 Completed [facility] 00:00:00 [facility] HPV9 2019-12-30 Completed [facility] 00:00:00 [facility] HPV9 2019-12-30 Completed [facility] [...] Branch HPV9 2019-12-30 Completed [facility] 00:00:00 [facility] HPV9 2019-12-30 Completed [facility] 00:00:00 [facility] HPV9 2019-12-30 Completed [facility] 00:00:00 [facility] HPV9 2019-12-30 Completed [facility] 00:00:00 [facility] HPV9 2019-12-30 Completed [facility] 00:00:00 [facility] HPV9 2019-12-30 Completed [facility] 00:00:00 [facility] HPV9 2019-12-30 Completed [facility] 00:00:00 [facility] HPV9 2019-12-30 Completed [facility] 00:00:00 [facility] HPV9 2019-12-30 Completed [facility] 00:00:00 [facility] HPV9 2019-12-30 Completed [facility] 00:00:00 [facility] HPV9 2019-09-27 Completed [facility] 00:00:00 [facility] HPV9 2019-09-27 Completed [facility] 00:00:00 [facility] HPV9 2019-09-27 Completed [facility] 00:00:00 [facility] HPV9 2019-09-27 Completed [facility] 00:00:00 [facility] HPV9 2019-09-27 Completed [facility] 00:00:00 [facility] HPV9 2019-09-27 Completed [facility] 00:00:00 [facility] HPV9 2019-09-27 Completed [facility] 00:00:00 [facility] HPV9 2019-09-27 Completed [facility] 00:00:00 [facility] HPV9 2019-09-27 Completed [facility] 00:00:00 [facility] HPV9 2019-09-27 Completed [facility] 00:00:00 [facility] HPV9 2019-09-27 Completed [facility] 00:00:00 [facility] HPV9 2019-09-27 Completed [facility] 00:00:00 [facility] HPV9 2019-09-27 Completed [facility] 00:00:00 [facility] HPV9 2019-09-27 Completed [facility] 00:00:00 [facility] HPV9 2019-09-27 Completed [facility] 00:00:00 [facility] HPV9 2019-09-27 Completed [facility] 00:00:00 [facility] HPV9 2019-09-27 Completed [facility] 00:00:00 [facility] HPV9 2019-09-27 Completed [facility] 00:00:00 [facility] HPV9 2019-09-27 Completed [facility] 00:00:00 [facility] HPV9 2019-09-27 Completed [facility] 00:00:00 [facility] HPV9 2019-09-27 Completed [facility] 00:00:00 [facility] HPV9 2019-09-27 Completed [facility] 00:00:00 [facility] HPV9 2019-09-27 Completed [facility] 00:00:00 [facility] HPV9 2019-09-27 Completed [facility] 00:00:00 [facility] HPV9 2019-09-27 Completed [facility] 00:00:00 [facility] HPV9 2019-09-27 Completed [facility] 00:00:00 [facility] HPV9 2019-09-27 Completed [facility] 00:00:00 [facility] HPV9 2019-09-27 Completed [facility] 00:00:00 [facility] HPV9 2019-09-27 Completed [facility] 00:00:00 [facility] HPV9 2019-09-27 Completed [facility] 00:00:00 [facility] HPV9 2019-09-27 Completed [facility] 00:00:00 [facility] HPV9 2019-09-27 Completed [facility] 00:00:00 [facility] HPV9 2019-09-27 Completed [facility] 00:00:00 [facility] HPV9 2019-09-27 Completed [facility] 00:00:00 [facility] HPV9 2019-09-27 Completed [facility] 00:00:00 [facility] HPV9 2019-09-27 Completed [facility] 00:00:00 [facility] HPV9 2019-09-27 Completed [facility] 00:00:00 [facility] HPV9 2019-09-27 Completed [facility] 00:00:00 [facility] HPV9 2019-09-27 Completed [facility] 00:00:00 [facility] HPV9 2019-09-27 Completed [facility] 00:00:00 [facility] HPV9 2019-09-27 Completed [facility] 00:00:00 [facility] HPV9 2019-09-27 Completed [facility] 00:00:00 [facility] HPV9 2019-09-27 Completed [facility] 00:00:00 [facility] HPV9 2019-09-27 Completed [facility] 00:00:00 [facility] HPV9 2019-09-27 Completed [facility] 00:00:00 [facility] HPV9 2019-09-27 Completed [facility] 00:00:00 [facility] HPV9 2019-09-27 Completed [facility] 00:00:00 [facility] HPV9 2019-09-27 Completed [facility] 00:00:00 [facility] HPV9 2019-09-27 Completed [facility] 00:00:00 [facility] HPV9 2019-09-27 Completed [facility] 00:00:00 [facility] HPV9 2019-09-27 Completed [facility] 00:00:00 [facility] HPV9 2019-09-27 Completed [facility] 00:00:00 [facility] HPV9 2019-09-27 Completed [facility] 00:00:00 [facility] HPV9 2019-09-27 Completed [facility] 00:00:00 [facility] HPV9 2019-09-27 Completed [facility] 00:00:00 [facility] HPV9 2019-09-27 Completed [facility] 00:00:00 [facility] HPV9 2019-09-27 Completed [facility] 00:00:00 [facility] HPV9 2019-09-27 Completed [facility] 00:00:00 [facility] HPV9 2019-09-27 Completed [facility] 00:00:00 [facility] HPV9 2019-09-27 Completed [facility] 00:00:00 [facility] HPV9 2019-09-27 Completed [facility] 00:00:00 [facility] HPV9 2019-09-27 Completed [facility] 00:00:00 [facility] HPV9 2019-09-27 Completed [facility] 00:00:00 [facility] HPV9 2019-09-27 Completed [facility] 00:00:00 [facility] HPV9 2019-09-27 Completed [facility] 00:00:00 [facility] HPV9 2019-09-27 Completed [facility] 00:00:00 [facility] HPV9 2019-09-27 Completed [facility] 00:00:00 [facility] HPV9 2019-09-27 Completed [facility] 00:00:00 [facility] HPV9 2019-09-27 Completed [facility] 00:00:00 [facility] HPV9 2019-09-27 Completed [facility] 00:00:00 [facility] HPV9 2019-09-27 Completed [facility] 00:00:00 [facility] HPV9 2019-09-27 Completed [facility] 00:00:00 [facility] HPV9 2019-09-27 Completed [facility] 00:00:00 [facility] HPV9 2019-09-27 Completed [facility] 00:00:00 [facility] HPV9 2019-09-27 Completed [facility] 00:00:00 [facility] HPV9 2019-09-27 Completed [facility] 00:00:00 [facility] HPV9 2019-09-27 Completed [facility] 00:00:00 [facility] HPV9 2019-09-27 Completed [facility] 00:00:00 [facility] HPV9 2019-09-27 Completed [facility] 00:00:00 [facility] HPV9 2019-09-27 Completed [facility] 00:00:00 [facility] HPV9 2019-09-27 Completed [facility] 00:00:00 [facility] HPV9 2019-09-27 Completed [facility] 00:00:00 [facility] HPV9 2019-09-27 Completed [facility] 00:00:00 [facility] HPV9 2019-09-27 Completed [facility] 00:00:00 [facility] HPV9 2019-09-27 Completed [facility] 00:00:00 [facility] HPV9 2019-09-27 Completed [facility] 00:00:00 [facility] HPV9 2019-09-27 Completed [facility] 00:00:00 [facility] HPV9 2019-09-27 Completed [facility] 00:00:00 [facility] HPV9 2019-09-27 Completed [facility] 00:00:00 [facility] HPV9 2019-09-27 Completed [facility] 00:00:00 [facility] HPV9 2019-09-27 Completed [facility] 00:00:00 [facility] HPV9 2019-09-27 Completed [facility] 00:00:00 [facility] HPV9 2019-09-27 Completed [facility] 00:00:00 [facility] HPV9 2019-09-27 Completed [facility] 00:00:00 [facility] HPV9 2019-09-27 Completed [facility] 00:00:00 [facility] HPV9 2019-09-27 Completed [facility] 00:00:00 [facility] HPV9 2019-09-27 Completed [facility] 00:00:00 [facility] HPV9 2019-09-27 Completed [facility] 00:00:00 [facility] HPV9 2019-09-27 Completed [facility] 00:00:00 [facility] HPV9 2019-09-27 Completed [facility] 00:00:00 [facility] HPV9 2019-09-27 Completed [facility] 00:00:00 [facility] HPV9 2019-09-27 Completed [facility] 00:00:00 [facility] HPV9 2019-09-27 Completed [facility] 00:00:00 [facility] HPV9 2019-09-27 Completed [facility] 00:00:00 [facility] HPV9 2019-09-27 Completed [facility] 00:00:00 [facility] HPV9 2019-09-27 Completed [facility] 00:00:00 [facility] HPV9 2019-09-27 Completed [facility] 00:00:00 [facility] HPV9 2019-05-17 Completed [facility] 00:00:00 [facility] HPV9 2019-05-17 Completed [facility] 00:00:00 [facility] HPV9 2019-05-17 Completed [facility] [...] Branch HPV9 2019-05-17 Completed [facility] 00:00:00 [facility] HPV9 2019-05-17 Completed [facility] 00:00:00 [facility] HPV9 2019-05-17 Completed [facility] 00:00:00 [facility] HPV9 2019-05-17 Completed [facility] 00:00:00 [facility] HPV9 2019-05-17 Completed [facility] 00:00:00 [facility] TDAP (ADACEL) 2018-02-15 Completed [facility] VACCINE 00:00:00 [facility] TDAP (ADACEL) 2018-02-15 Completed [facility] VACCINE 00:00:00 [facility] TDAP (ADACEL) 2018-02-15 Completed [facility] VACCINE 00:00:00 [facility] TDAP (ADACEL) 2018-02-15 Completed [facility] VACCINE 00:00:00 [facility] TDAP (ADACEL) 2018-02-15 Completed [facility] VACCINE 00:00:00 [facility] TDAP (ADACEL) 2018-02-15 Completed [facility] VACCINE 00:00:00 [facility] TDAP (ADACEL) 2018-02-15 Completed [facility] VACCINE 00:00:00 [facility] TDAP (ADACEL) 2018-02-15 Completed [facility] VACCINE 00:00:00 [facility] TDAP (ADACEL) 2018-02-15 Completed [facility] VACCINE 00:00:00 [facility] TDAP (ADACEL) 2018-02-15 Completed [facility] VACCINE 00:00:00 [facility] TDAP (ADACEL) 2018-02-15 Completed [facility] VACCINE 00:00:00 [facility] TDAP (ADACEL) 2018-02-15 Completed [facility] VACCINE 00:00:00 [facility] TDAP (ADACEL) 2018-02-15 Completed [facility] VACCINE 00:00:00 [facility] TDAP (ADACEL) 2018-02-15 Completed [facility] VACCINE 00:00:00 [facility] TDAP (ADACEL) 2018-02-15 Completed [facility] VACCINE 00:00:00 [facility] TDAP (ADACEL) 2018-02-15 Completed [facility] VACCINE 00:00:00 [facility] TDAP (ADACEL) 2018-02-15 Completed [facility] VACCINE 00:00:00 [facility] TDAP (ADACEL) 2018-02-15 Completed [facility] VACCINE 00:00:00 [facility] TDAP (ADACEL) 2018-02-15 Completed [facility] VACCINE 00:00:00 [facility] TDAP (ADACEL) 2018-02-15 Completed [facility] VACCINE 00:00:00 [facility] TDAP (ADACEL) 2018-02-15 Completed [facility] VACCINE 00:00:00 [facility] TDAP (ADACEL) 2018-02-15 Completed [facility] VACCINE 00:00:00 [facility] TDAP (ADACEL) 2018-02-15 Completed [facility] VACCINE 00:00:00 [facility] TDAP (ADACEL) 2018-02-15 Completed [facility] VACCINE 00:00:00 [facility] TDAP (ADACEL) 2018-02-15 Completed [facility] VACCINE 00:00:00 [facility] TDAP (ADACEL) 2018-02-15 Completed [facility] VACCINE 00:00:00 [facility] TDAP (ADACEL) 2018-02-15 Completed [facility] VACCINE 00:00:00 [facility] TDAP (ADACEL) 2018-02-15 Completed [facility] VACCINE 00:00:00 [facility] TDAP (ADACEL) 2018-02-15 Completed [facility] VACCINE 00:00:00 [facility] TDAP (ADACEL) 2018-02-15 Completed [facility] VACCINE 00:00:00 [facility] TDAP (ADACEL) 2018-02-15 Completed [facility] VACCINE 00:00:00 [facility] TDAP (ADACEL) 2018-02-15 Completed [facility] VACCINE 00:00:00 [facility] TDAP (ADACEL) 2018-02-15 Completed [facility] VACCINE 00:00:00 [facility] TDAP (ADACEL) 2018-02-15 Completed [facility] VACCINE 00:00:00 [facility] TDAP (ADACEL) 2018-02-15 Completed [facility] VACCINE 00:00:00 [facility] TDAP (ADACEL) 2018-02-15 Completed [facility] VACCINE 00:00:00 [facility] TDAP (ADACEL) 2018-02-15 Completed [facility] VACCINE 00:00:00 [facility] TDAP (ADACEL) 2018-02-15 Completed [facility] VACCINE 00:00:00 [facility] TDAP (ADACEL) 2018-02-15 Completed [facility] VACCINE 00:00:00 [facility] TDAP (ADACEL) 2018-02-15 Completed [facility] VACCINE 00:00:00 [facility] TDAP (ADACEL) 2018-02-15 Completed [facility] VACCINE 00:00:00 [facility] TDAP (ADACEL) 2018-02-15 Completed [facility] VACCINE 00:00:00 [facility] TDAP (ADACEL) 2018-02-15 Completed [facility] VACCINE 00:00:00 [facility] TDAP (ADACEL) 2018-02-15 Completed [facility] VACCINE 00:00:00 [facility] TDAP (ADACEL) 2018-02-15 Completed [facility] VACCINE 00:00:00 [facility] TDAP (ADACEL) 2018-02-15 Completed [facility] VACCINE 00:00:00 [facility] TDAP (ADACEL) 2018-02-15 Completed [facility] VACCINE 00:00:00 [facility] TDAP (ADACEL) 2018-02-15 Completed [facility] VACCINE 00:00:00 [facility] TDAP (ADACEL) 2018-02-15 Completed [facility] VACCINE 00:00:00 [facility] TDAP (ADACEL) 2018-02-15 Completed [facility] VACCINE 00:00:00 [facility] TDAP (ADACEL) 2018-02-15 Completed [facility] VACCINE 00:00:00 [facility] TDAP (ADACEL) 2018-02-15 Completed [facility] VACCINE 00:00:00 [facility] TDAP (ADACEL) 2018-02-15 Completed [facility] VACCINE 00:00:00 [facility] TDAP (ADACEL) 2018-02-15 Completed [facility] VACCINE 00:00:00 [facility] TDAP (ADACEL) 2018-02-15 Completed [facility] VACCINE 00:00:00 [facility] TDAP (ADACEL) 2018-02-15 Completed [facility] VACCINE 00:00:00 [facility] TDAP (ADACEL) 2018-02-15 Completed [facility] VACCINE 00:00:00 [facility] TDAP (ADACEL) 2018-02-15 Completed [facility] VACCINE 00:00:00 [facility] TDAP (ADACEL) 2018-02-15 Completed [facility] VACCINE 00:00:00 [facility] TDAP (ADACEL) 2018-02-15 Completed [facility] VACCINE 00:00:00 [facility] TDAP (ADACEL) 2018-02-15 Completed [facility] VACCINE 00:00:00 [facility] TDAP (ADACEL) 2018-02-15 Completed [facility] [...] (ADACEL) 2018-02-15 Completed [facility] VACCINE 00:00:00 [facility] TDAP (ADACEL) 2018-02-15 Completed [facility] VACCINE 00:00:00 [facility] TDAP (ADACEL) 2018-02-15 Completed [facility] VACCINE 00[facility]00:00 [facility] TDAP (ADACEL) 2018-02-15 Completed [facility] VACCINE 00:00:00 [facility] TDAP (ADACEL) 2018-02-15 Completed [facility] VACCINE 00:00:00 [facility] TDAP (ADACEL) 2018-02-15 Completed [facility] VACCINE 00:00:00 [facility] TDAP (ADACEL) 2018-02-15 Completed [facility] VACCINE 00:00:00 [facility] TDAP (ADACEL) 2018-02-15 Completed [facility] [...] (ADACEL) 2018-02-15 Completed [facility] VACCINE 00:00:00 [facility] TDAP (ADACEL) 2018-02-15 Completed [facility] VACCINE 00:00:00 [facility] TDAP (ADACEL) 2018-02-15 Completed [facility] VACCINE 00:00:00 [facility] TDAP (ADACEL) 2018-02-15 Completed [facility] VACCINE 00:00:00 [facility] TDAP (ADACEL) 2018-02-15 Completed [facility] VACCINE 00:00:00 [facility] TDAP (ADACEL) 2018-02-15 Completed [facility] VACCINE 00:00:00 [facility] TDAP (ADACEL) 2018-02-15 Completed [facility] VACCINE 00:00:00 [facility] TDAP (ADACEL) 2018-02-15 Completed [facility] VACCINE 00:00:00 [facility] TDAP (ADACEL) 2018-02-15 Completed [facility] VACCINE 00:00:00 [facility] TDAP (ADACEL) 2018-02-15 Completed [facility] VACCINE 00:00:00 [facility] TDAP (ADACEL) 2018-02-15 Completed [facility] VACCINE 00:00:00 [facility] TDAP (ADACEL) 2018-02-15 Completed [facility] VACCINE 00:00:00 [facility] TDAP (ADACEL) 2018-02-15 Completed [facility] VACCINE 00:00:00 [facility] TDAP (ADACEL) 2018-02-15 Completed [facility] VACCINE 00:00:00 [facility] TDAP (ADACEL) 2018-02-15 Completed [facility] VACCINE 00:00:00 [facility] TDAP (ADACEL) 2018-02-15 Completed [facility] VACCINE 00:00:00 [facility] TDAP (ADACEL) 2018-02-15 Completed [facility] VACCINE 00:00:00 [facility] TDAP (ADACEL) 2018-02-15 Completed [facility] VACCINE 00:00:00 [facility] TDAP (ADACEL) 2018-02-15 Completed [facility] VACCINE 00:00:00 [facility] TDAP (ADACEL) 2018-02-15 Completed [facility] VACCINE 00:00:00 [facility] TDAP (ADACEL) 2018-02-15 Completed [facility] VACCINE 00:00:00 [facility] TDAP (ADACEL) 2018-02-15 Completed [facility] VACCINE 00:00:00 [facility] TDAP (ADACEL) 2018-02-15 Completed [facility] VACCINE 00:00:00 [facility] TDAP (ADACEL) 2018-02-15 Completed [facility] VACCINE 00:00:00 [facility] Influenza Virus 2017-12-14 Completed [facility] Vaccine [facility] 3+ 00:00:00 [facility] Influenza Virus 2017-12-14 Completed [facility] of Vaccine [facility] IM 3+ 00:00:00 [facility] Influenza Virus 2017-12-14 Completed [facility] of Vaccine [facility] IM 3+ 00:00:00 [facility] Influenza Virus 2017-12-14 Completed [facility] Vaccine [facility] IM 3+ 00:00:00 [facility] Influenza Virus 2017-12-14 Completed [facility] of Vaccine [facility] IM 3+ 00:00:00 [facility] Influenza Virus 2017-12-14 Completed [facility] of Vaccine [facility] IM 3+ 00:00:00 [facility] Influenza Virus 2017-12-14 Completed [facility] of Vaccine [facility] IM 3+ 00:00:00 [facility] Influenza Virus 2017-12-14 Completed [facility] of Vaccine [facility] IM 3+ 00:00:00 [facility] Influenza Virus 2017-12-14 Completed [facility] of Vaccine [facility] IM 3+ 00:00:00 [facility] Influenza Virus 2017-12-14 Completed [facility] of Vaccine [facility] IM 3+ 00:00:00 [facility] Influenza Virus 2017-12-14 Completed [facility] of Vaccine [facility] IM 3+ 00:00:00 [facility] Influenza Virus 2017-12-14 Completed [facility] of Vaccine [facility] IM 3+ 00:00:00 [facility] Influenza Virus 2017-12-14 Completed [facility] of Vaccine [facility] IM 3+ 00:00:00 [facility] Influenza Virus 2017-12-14 Completed [facility] of Vaccine [facility] IM 3+ 00:00:00 [facility] Influenza Virus 2017-12-14 Completed [facility] of Vaccine [facility] IM 3+ 00:00:00 [facility] Influenza Virus 2017-12-14 Completed [facility] of Vaccine [facility] IM 3+ 00:00:00 [facility] Influenza Virus 2017-12-14 Completed [facility] of Vaccine [facility] IM 3+ 00:00:00 [facility] Influenza Virus 2017-12-14 Completed [facility] of Vaccine [facility] IM 3+ 00:00:00 [facility] Influenza Virus 2017-12-14 Completed [facility] of Vaccine Quad IM 3+ 00:00:00 [facility] Influenza Virus 2017-12-14 Completed [facility] of Vaccine [facility] IM 3+ 00:00:00 [facility] Influenza Virus 2017-12-14 Completed [facility] of Vaccine [facility] IM 3+ 00:00:00 [facility] Influenza Virus 2017-12-14 Completed [facility] of Vaccine [facility] IM 3+ 00:00:00 [facility] Influenza Virus 2017-12-14 Completed [facility] of Vaccine Quad IM 3+ 00:00:00 [facility] Influenza Virus 2017-12-14 Completed [facility] of Vaccine [facility] IM 3+ 00:00:00 [facility] Influenza Virus 2017-12-14 Completed [facility] of Vaccine [facility] IM 3+ 00:00:00 [facility] Influenza Virus 2017-12-14 Completed [facility] of Vaccine [facility] IM 3+ 00:00:00 [facility] Influenza Virus 2017-12-14 Completed [facility] of Vaccine [facility] IM 3+ 00:00:00 [facility] Influenza Virus 2017-12-14 Completed [facility] Vaccine [facility] IM 3+ 00:00:00 [facility] Influenza Virus 2017-12-14 Completed [facility] Vaccine [facility] IM 3+ 00:00:00 [facility] Influenza Virus 2017-12-14 Completed [facility] of Vaccine [facility] IM 3+ 00:00:00 [facility] Influenza Virus 2017-12-14 Completed [facility] Vaccine [facility] IM 3+ 00:00:00 [facility] Influenza Virus 2017-12-14 Completed [facility] Vaccine [facility] IM 3+ 00:00:00 [facility] Influenza Virus 2017-12-14 Completed [facility] of Vaccine [facility] IM 3+ 00:00:00 [facility] Influenza Virus 2017-12-14 Completed [facility] of Vaccine [facility] IM 3+ 00:00:00 [facility] Influenza Virus 2017-12-14 Completed [facility] Vaccine [facility] IM 3+ 00:00:00 [facility] Influenza Virus 2017-12-14 Completed [facility] of Vaccine [facility] IM 3+ 00:00:00 [facility] Influenza Virus 2017-12-14 Completed [facility] of Vaccine Quad IM 3+ 00:00:00 [facility] Influenza Virus 2017-12-14 Completed [facility] of Vaccine [facility] IM 3+ 00:00:00 [facility] Influenza Virus 2017-12-14 Completed [facility] of Vaccine [facility] IM 3+ 00:00:00 [facility] Influenza Virus 2017-12-14 Completed [facility] of Vaccine [facility] IM 3+ 00:00:00 [facility] Influenza Virus 2017-12-14 Completed [facility] of Vaccine [facility] IM 3+ 00:00:00 [facility] Influenza Virus 2017-12-14 Completed [facility] of Vaccine [facility] IM 3+ 00:00:00 [facility] Influenza Virus 2017-12-14 Completed [facility] of Vaccine [facility] IM 3+ 00:00:00 [facility] Influenza Virus 2017-12-14 Completed [facility] of Vaccine [facility] IM 3+ 00:00:00 [facility] Influenza Virus 2017-12-14 Completed [facility] of Vaccine [facility] IM 3+ 00:00:00 [facility] Influenza Virus 2017-12-14 Completed [facility] Vaccine [facility] IM 3+ 00:00:00 [facility] Influenza Virus 2017-12-14 Completed [facility] of Vaccine [facility] IM 3+ 00:00:00 [facility] Influenza Virus 2017-12-14 Completed [facility] of Vaccine [facility] IM 3+ 00:00:00 [facility] Influenza Virus 2017-12-14 Completed [facility] of Vaccine [facility] IM 3+ 00:00:00 [facility] Influenza Virus 2017-12-14 Completed [facility] of Vaccine [facility] IM 3+ 00:00:00 [facility] Influenza Virus 2017-12-14 Completed [facility] of Vaccine [facility] IM 3+ 00:00:00 [facility] Influenza Virus 2017-12-14 Completed [facility] of Vaccine [facility] IM 3+ 00:00:00 [facility] Influenza Virus 2017-12-14 Completed [facility] of Vaccine [facility] IM 3+ 00:00:00 [facility] Influenza Virus 2017-12-14 Completed [facility] of Vaccine [facility] IM 3+ 00:00:00 [facility] Influenza Virus 2017-12-14 Completed [facility] of Vaccine Quad IM 3+ 00:00:00 [facility] Influenza Virus 2017-12-14 Completed [facility] of Vaccine [facility] IM 3+ 00:00:00 [facility] Influenza Virus 2017-12-14 Completed [facility] of Vaccine [facility] IM 3+ 00:00:00 [facility] Influenza Virus 2017-12-14 Completed [facility] of Vaccine [facility] IM 3+ 00:00:00 [facility] Influenza Virus 2017-12-14 Completed [facility] of Vaccine Quad IM 3+ 00:00:00 [facility] Influenza Virus 2017-12-14 Completed [facility] of Vaccine [facility] IM 3+ 00:00:00 [facility] Influenza Virus 2017-12-14 Completed [facility] of Vaccine [facility] IM 3+ 00:00:00 [facility] Influenza Virus 2017-12-14 Completed [facility] of Vaccine [facility] IM 3+ 00:00:00 [facility] Influenza Virus 2017-12-14 Completed [facility] of Vaccine Quad IM 3+ 00:00:00 [facility] Influenza Virus 2017-12-14 Completed [facility] of Vaccine Quad IM 3+ 00:00:00 [facility] Influenza Virus 2017-12-14 Completed [facility] of Vaccine Quad IM 3+ 00:00:00 [facility] Influenza Virus 2017-12-14 Completed [facility] of Vaccine Quad IM 3+ 00:00:00 [facility] Influenza Virus 2017-12-14 Completed [facility] of Vaccine Quad IM 3+ 00:00:00 [facility] Influenza Virus 2017-12-14 Completed [facility] of Vaccine Quad IM 3+ 00:00:00 [facility] Influenza Virus 2017-12-14 Completed [facility] of Vaccine Quad IM 3+ 00:00:00 [facility] Influenza Virus 2017-12-14 Completed [facility] of Vaccine Quad IM 3+ 00:00:00 [facility] Influenza Virus 2017-12-14 Completed [facility] of Vaccine Quad IM 3+ 00:00:00 [facility] Influenza Virus 2017-12-14 Completed [facility] of Vaccine Quad IM 3+ 00:00:00 [facility] Influenza Virus 2017-12-14 Completed [facility] of Vaccine Quad IM 3+ 00:00:00 [facility] Influenza Virus 2017-12-14 Completed [facility] of Vaccine Quad IM 3+ 00:00:00 [facility] Influenza Virus 2017-12-14 Completed [facility] of Vaccine Quad IM 3+ 00:00:00 [facility] Influenza Virus 2017-12-14 Completed [facility] of Vaccine Quad IM 3+ 00:00:00 [facility] Influenza Virus 2017-12-14 Completed [facility] of Vaccine Quad IM 3+ 00:00:00 [facility] Influenza Virus 2017-12-14 Completed [facility] of Vaccine Quad IM 3+ 00:00:00 [facility] Influenza Virus 2017-12-14 Completed [facility] of Vaccine Quad IM 3+ 00:00:00 [facility] Influenza Virus 2017-12-14 Completed [facility] of Vaccine Quad IM 3+ 00:00:00 [facility] Influenza Virus 2017-12-14 Completed [facility] of Vaccine Quad IM 3+ 00:00:00 [facility] Influenza Virus 2017-12-14 Completed [facility] of Vaccine Quad IM 3+ 00:00:00 [facility] Influenza Virus 2017-12-14 Completed [facility] of Vaccine Quad IM 3+ 00:00:00 [facility] Influenza Virus 2017-12-14 Completed [facility] of Vaccine Quad IM 3+ 00:00:00 [facility] Influenza Virus 2017-12-14 Completed [facility] of Vaccine Quad IM 3+ 00:00:00 [facility] Influenza Virus 2017-12-14 Completed [facility] of Vaccine Quad IM 3+ 00:00:00 [facility] Influenza Virus 2017-12-14 Completed [facility] of Vaccine [facility] IM 3+ 00:00:00 [facility] Influenza Virus 2017-12-14 Completed [facility] of Vaccine Quad IM 3+ 00:00:00 [facility] Influenza Virus 2017-12-14 Completed [facility] of Vaccine Quad IM 3+ 00:00:00 [facility] Influenza Virus 2017-12-14 Completed [facility] of Vaccine Quad IM 3+ 00:00:00 [facility] Influenza Virus 2017-12-14 Completed [facility] Vaccine [facility] IM 3+ 00:00:00 [facility] Influenza Virus 2017-12-14 Completed [facility] of Vaccine Quad IM 3+ 00:00:00 [facility] Influenza Virus 2017-12-14 Completed [facility] of Vaccine Quad IM 3+ 00:00:00 [facility] Influenza Virus 2017-12-14 Completed [facility] of Vaccine Quad IM 3+ 00:00:00 [facility] Influenza Virus 2017-12-14 Completed [facility] of Vaccine [facility] IM 3+ 00:00:00 [facility] Influenza Virus 2017-12-14 Completed [facility] of Vaccine Quad IM 3+ 00:00:00 [facility] Influenza Virus 2017-12-14 Completed [facility] of Vaccine Quad IM 3+ 00:00:00 [facility] Influenza Virus 2017-12-14 Completed [facility] of Vaccine Quad IM 3+ 00:00:00 [facility] Influenza Virus 2017-12-14 Completed [facility] of Vaccine Quad IM 3+ 00:00:00 [facility] Influenza Virus 2017-12-14 Completed [facility] of Vaccine Quad IM 3+ 00:00:00 [facility] Influenza Virus 2017-12-14 Completed [facility] of Vaccine Quad IM 3+ 00:00:00 [facility] Influenza Virus 2017-12-14 Completed [facility] of Vaccine Quad IM 3+ 00:00:00 [facility] Influenza Virus 2017-12-14 Completed [facility] of Vaccine [facility] IM 3+ 00:00:00 [facility] Influenza Virus 2017-12-14 Completed [facility] of Vaccine Quad IM 3+ 00:00:00 [facility] Influenza Virus 2017-12-14 Completed [facility] of Vaccine [facility] IM 3+ 00:00:00 [facility] Influenza Virus 2017-12-14 Completed [facility] Vaccine [facility] IM 3+ 00:00:00 [facility] Influenza Virus 2017-12-14 Completed [facility] Vaccine [facility] IM 3+ 00:00:00 [facility] Varicella 2016-05-24 Completed [facility] of (varivax)(chicken 00:00:00 [...] TDAP 2016-04-03 Completed [facility] 00:00:00 [facility] TDAP 2016-04-03 Completed [facility] 00:00:00 [facility] TDAP 2016-04-03 Completed [facility] 00:00:00 [facility] TDAP 2016-04-03 Completed [facility] 00:00:00 [facility] TDAP 2016-04-03 Completed [facility] 00:00:00 [facility] TDAP 2016-04-03 Completed [facility] 00:00:00 [facility] TDAP 2016-04-03 Completed [facility] 00:00:00 [facility] TDAP 2016-04-03 Completed [facility] 00:00:00 [facility] TDAP 2016-04-03 Completed [facility] 00:00:00 [facility] TDAP 2016-04-03 Completed [facility] 00:00:00 [facility] TDAP 2016-04-03 Completed [facility] 00:00:00 [facility] TDAP 2016-04-03 Completed [facility] 00:00:00 [facility] TDAP 2016-04-03 Completed [facility] 00:00:00 [facility] TDAP 2016-04-03 Completed [facility] 00:00:00 [facility] TDAP 2016-04-03 Completed [facility] 00:00:00 [facility] TDAP 2016-04-03 Completed [facility] 00:00:00 [facility] TDAP 2016-04-03 Completed [facility] 00:00:00 [facility] TDAP 2016-04-03 Completed [facility] 00:00:00 [facility] TDAP 2016-04-03 Completed [facility] 00:00:00 [facility] TDAP 2016-04-03 Completed [facility] 00:00:00 [facility] TDAP 2016-04-03 Completed [facility] 00:00:00 [facility] TDAP 2016-04-03 Completed [facility] 00:00:00 [facility] TDAP 2016-04-03 Completed [facility] 00:00:00 [facility] TDAP 2016-04-03 Completed [facility] 00:00:00 [facility] TDAP 2016-04-03 Completed [facility] 00:00:00 [facility] TDAP 2016-04-03 Completed [facility] 00:00:00 [facility] TDAP 2016-04-03 Completed [facility] 00:00:00 [facility] TDAP 2016-04-03 Completed [facility] 00:00:00 [facility] TDAP 2016-04-03 Completed [facility] 00:00:00 [facility] TDAP 2016-04-03 Completed [facility] 00:00:00 [facility] TDAP 2016-04-03 Completed [facility] 00:00:00 [facility] TDAP 2016-04-03 Completed [facility] 00:00:00 [facility] TDAP 2016-04-03 Completed [facility] 00:00:00 [facility] TDAP 2016-04-03 Completed [facility] 00:00:00 [facility] TDAP 2016-04-03 Completed [facility] 00:00:00 [facility] TDAP 2016-04-03 Completed [facility] 00:00:00 [facility] TDAP 2016-04-03 Completed [facility] 00:00:00 [facility] TDAP 2016-04-03 Completed [facility] 00:00:00 [facility] TDAP 2016-04-03 Completed [facility] 00:00:00 [facility] TDAP 2016-04-03 Completed [facility] 00:00:00 [facility] TDAP 2016-04-03 Completed [facility] 00:00:00 [facility] TDAP 2016-04-03 Completed [facility] 00:00:00 [facility] TDAP 2016-04-03 Completed [facility] 00:00:00 [facility] TDAP 2016-04-03 Completed [facility] 00:00:00 [facility] TDAP 2016-04-03 Completed [facility] 00:00:00 [facility] TDAP 2016-04-03 Completed [facility] 00:00:00 [facility] TDAP 2016-04-03 Completed [facility] 00:00:00 [facility] TDAP 2016-04-03 Completed [facility] 00:00:00 [facility] TDAP 2016-04-03 Completed [facility] 00:00:00 [facility] TDAP 2016-04-03 Completed [facility] 00:00:00 [facility] TDAP 2016-04-03 Completed [facility] 00:00:00 [facility] TDAP 2016-04-03 Completed [facility] 00:00:00 [facility] TDAP 2016-04-03 Completed [facility] 00:00:00 [facility] TDAP 2016-04-03 Completed [facility] 00:00:00 [facility] TDAP 2016-04-03 Completed [facility] 00:00:00 [facility] TDAP 2016-04-03 Completed [facility] 00:00:00 [facility] TDAP 2016-04-03 Completed [facility] 00:00:00 [facility] TDAP 2016-04-03 Completed [facility] 00:00:00 [facility] TDAP 2016-04-03 Completed [facility] 00:00:00 [facility] TDAP 2016-04-03 Completed [facility] 00:00:00 [facility] TDAP 2016-04-03 Completed [facility] 00:00:00 [facility] TDAP 2016-04-03 Completed [facility] 00:00:00 [facility] TDAP 2016-04-03 Completed [facility] 00:00:00 [facility] TDAP 2016-04-03 Completed [facility] 00:00:00 [facility] TDAP 2016-04-03 Completed [facility] 00:00:00 [facility] TDAP 2016-04-03 Completed [facility] 00:00:00 [facility] TDAP 2016-04-03 Completed [facility] 00:00:00 [facility] TDAP 2016-04-03 Completed [facility] 00:00:00 [facility] TDAP 2016-04-03 Completed [facility] 00:00:00 [facility] TDAP 2016-04-03 Completed [facility] 00:00:00 [facility] TDAP 2016-04-03 Completed [facility] 00:00:00 [facility] TDAP 2016-04-03 Completed [facility] 00:00:00 [facility] TDAP 2016-04-03 Completed [facility] 00:00:00 [facility] TDAP 2016-04-03 Completed [facility] 00:00:00 [facility] TDAP 2016-04-03 Completed [facility] 00:00:00 [facility] TDAP 2016-04-03 Completed [facility] 00:00:00 [facility] TDAP 2016-04-03 Completed [facility] 00:00:00 [facility] TDAP 2016-04-03 Completed [facility] 00:00:00 [facility] TDAP 2016-04-03 Completed [facility] 00:00:00 [facility] TDAP 2016-04-03 Completed [facility] 00:00:00 [facility] TDAP 2016-04-03 Completed [facility] 00:00:00 [facility] TDAP 2016-04-03 Completed [facility] 00:00:00 [facility] TDAP 2016-04-03 Completed [facility] 00:00:00 [facility] TDAP 2016-04-03 Completed [facility] 00:00:00 [facility] TDAP 2016-04-03 Completed [facility] 00:00:00 [facility] TDAP 2016-04-03 Completed [facility] 00:00:00 [facility] TDAP 2016-04-03 Completed [facility] 00:00:00 [facility] TDAP 2016-04-03 Completed [facility] 00:00:00 [facility] TDAP 2016-04-03 Completed [facility] 00:00:00 [facility] TDAP 2016-04-03 Completed [facility] 00:00:00 [facility] TDAP 2016-04-03 Completed [facility] 00:00:00 [facility] TDAP 2016-04-03 Completed [facility] 00:00:00 [facility] TDAP 2016-04-03 Completed [facility] 00:00:00 [facility] TDAP 2016-04-03 Completed [facility] 00:00:00 [facility] TDAP 2016-04-03 Completed [facility] 00:00:00 [facility] TDAP 2016-04-03 Completed [facility] 00:00:00 [facility] TDAP 2016-04-03 Completed [facility] 00:00:00 [facility] TDAP 2016-04-03 Completed [facility] 00:00:00 [facility]ly [facility] TDAP 2016-04-03 Completed [facility] 00:00:00 [facility] TDAP 2016-04-03 Completed [facility] 00:00:00 [facility] TDAP 2016-04-03 Completed [facility] 00:00:00 [facility] TDAP 2016-04-03 Completed [facility] 00:00:00 [facility] TDAP 2016-04-03 Completed [facility] 00:00:00 [facility] TDAP 2016-04-03 Completed [facility] 00:00:00 [facility] TDAP 2016-04-03 Completed [facility] 00:00:00 [facility] TDAP 2016-04-03 Completed [facility] 00:00:00 [facility] TDAP 2016-04-03 Completed [facility] 00:00:00 [facility] Rho (d) Immune 2016-03-27 Completed [facility] Globulin 00:00:00 [facility] Rho (d) Immune 2016-03-27 Completed [facility] Globulin 00:00:00 [facility] Rho (d) Immune 2016-03-27 Completed [facility] Globulin 00:00:00 [facility] Rho (d) Immune 2016-03-27 Completed [facility] Globulin 00:00:00 [facility] Rho (d) Immune 2016-03-27 Completed [facility] Gl[facility]ulin 00:00:00 [facility] Rho (d) Immune 2016-03-27 Completed [facility] Globulin 00:00:00 [facility] Rho (d) Immune 2016-03-27 Completed [facility] Globulin 00:00:00 [facility] Rho (d) Immune 2016-03-27 Completed [facility] Globulin 00:00:00 [facility] Rho (d) Immune 2016-03-27 Completed [facility] Globulin 00:00:00 [facility] Rho (d) Immune 2016-03-27 Completed [facility] Globulin 00:00:00 [facility] Rho (d) Immune 2016-03-27 Completed [facility] Globulin 00:00:00 [facility] Rho (d) Immune 2016-03-27 Completed [facility] Globulin 00:00:00 [facility] Rho (d) Immune 2016-03-27 Completed [facility] Globulin 00:00:00 [facility] Rho (d) Immune 2016-03-27 Completed [facility] Globulin 00:00:00 [facility] Rho (d) Immune 2016-03-27 Completed [facility] Globulin 00:00:00 [facility] Rho (d) Immune 2016-03-27 Completed [facility] Globulin 00:00:00 [facility] Rho (d) Immune 2016-03-27 Completed [facility] Globulin 00:00:00 [facility] Rho (d) Immune 2016-03-27 Completed [facility] Globulin 00:00:00 [facility] Rho (d) Immune 2016-03-27 Completed [facility] Globulin 00:00:00 [facility] Rho (d) Immune 2016-03-27 Completed [facility] Globulin 00:00:00 [facility] Rho (d) Immune 2016-03-27 Completed [facility] Globulin 00:00:00 [facility] Rho (d) Immune 2016-03-27 Completed [facility] Globulin 00:00:00 [facility] Rho (d) Immune 2016-03-27 Completed [facility] Gl[facility]ulin 00:00:00 [facility] Rho (d) Immune 2016-03-27 Completed [facility] Globulin 00:00:00 [facility] Rho (d) Immune 2016-03-27 Completed [facility] Globulin 00:00:00 [facility] Rho (d) Immune 2016-03-27 Completed [facility] Globulin 00:00:00 [facility] Rho (d) Immune 2016-03-27 Completed [facility] Globulin 00:00:00 [facility] Rho (d) Immune 2016-03-27 Completed [facility] Globulin 00:00:00 [facility] Rho (d) Immune 2016-03-27 Completed [facility] Globulin 00:00:00 [facility] Rho (d) Immune 2016-03-27 Completed [facility] Globulin 00:00:00 [facility] Rho (d) Immune 2016-03-27 Completed [facility] Globulin 00:00:00 [facility] Rho (d) Immune 2016-03-27 Completed [facility] Globulin 00:00:00 [facility] Rho (d) Immune 2016-03-27 Completed [facility] Globulin 00:00:00 [facility] Rho (d) Immune 2016-03-27 Completed [facility] Globulin 00:00:00 [facility] Rho (d) Immune 2016-03-27 Completed [facility] Globulin 00:00:00 [facility] Rho (d) Immune 2016-03-27 Completed [facility] Globulin 00:00:00 [facility] Rho (d) Immune 2016-03-27 Completed [facility] Globulin 00:00:00 [facility] Rho (d) Immune 2016-03-27 Completed [facility] Globulin 00:00:00 [facility] Rho (d) Immune 2016-03-27 Completed [facility] Globulin 00:00:00 [facility] Rho (d) Immune 2016-03-27 Completed [facility] Globulin 00:00:00 [facility] Rho (d) Immune 2016-03-27 Completed [facility] Globulin 00:00:00 [facility] Rho (d) Immune 2016-03-27 Completed [facility] Globulin 00:00:00 [facility] Rho (d) Immune 2016-03-27 Completed [facility] Globulin 00:00:00 [facility] Rho (d) Immune 2016-03-27 Completed [facility] Globulin 00:00:00 [facility] Rho (d) Immune 2016-03-27 Completed [facility] Globulin 00:00:00 [facility] Rho (d) Immune 2016-03-27 Completed [facility] Globulin 00:00:00 [facility] Rho (d) Immune 2016-03-27 Completed [facility] Globulin 00:00:00 [facility] Rho (d) Immune 2016-03-27 Completed [facility] Globulin 00:00:00 [facility] Rho (d) Immune 2016-03-27 Completed [facility] Gl[facility]ulin 00:00:00 [facility] Rho (d) Immune 2016-03-27 Completed [facility] Globulin 00:00:00 [facility] Rho (d) Immune 2016-03-27 Completed [facility] Gl[facility]ulin 00:00:00 [facility] Rho (d) Immune 2016-03-27 Completed [facility] Globulin 00:00:00 [facility] Rho (d) Immune 2016-03-27 Completed [facility] Globulin 00:00:00 [facility] Rho (d) Immune 2016-03-27 Completed [facility] Globulin 00:00:00 [facility] Rho (d) Immune 2016-03-27 Completed [facility] Globulin 00:00:00 [facility] Rho (d) Immune 2016-03-27 Completed [facility] Globulin 00:00:00 [facility] Rho (d) Immune 2016-03-27 Completed [facility] Globulin 00:00:00 [facility] Rho (d) Immune 2016-03-27 Completed [facility] Globulin 00:00:00 [facility] Rho (d) Immune 2016-03-27 Completed [facility] Gl[facility]ulin 00:00:00 [facility] Rho (d) Immune 2016-03-27 Completed [facility] Gl[facility]ulin 00:00:00 [facility] Rho (d) Immune 2016-03-27 Completed [facility] Globulin 00:00:00 [facility] Rho (d) Immune 2016-03-27 Completed [facility] Globulin 00:00:00 [facility] Rho (d) Immune 2016-03-27 Completed [facility] Globulin 00:00:00 [facility] Rho (d) Immune 2016-03-27 Completed [facility] Globulin 00:00:00 [facility] Rho (d) Immune 2016-03-27 Completed [facility] Globulin 00:00:00 [facility] Rho (d) Immune 2016-03-27 Completed [facility] Globulin 00:00:00 [facility] Rho (d) Immune 2016-03-27 Completed [facility] Globulin 00:00:00 [facility] Rho (d) Immune 2016-03-27 Completed [facility] Globulin 00:00:00 [facility] Rho (d) Immune 2016-03-27 Completed [facility] Gl[facility]ulin 00:00:00 [facility] Rho (d) Immune 2016-03-27 Completed [facility] Gl[facility]ulin 00:00:00 [facility] Rho (d) Immune 2016-03-27 Completed [facility] Globulin 00:00:00 [facility] Rho (d) Immune 2016-03-27 Completed [facility] Globulin 00:00:00 [facility] Rho (d) Immune 2016-03-27 Completed [facility] Globulin 00:00:00 [facility] Rho (d) Immune 2016-03-27 Completed [facility] Globulin 00:00:00 [facility] Rho (d) Immune 2016-03-27 Completed [facility] Globulin 00:00:00 [facility] Rho (d) Immune 2016-03-27 Completed [facility] Gl[facility]ulin 00:00:00 [facility] Rho (d) Immune 2016-03-27 Completed [facility] Globulin 00:00:00 [facility] Rho (d) Immune 2016-03-27 Completed [facility] Globulin 00:00:00 [facility] Rho (d) Immune 2016-03-27 Completed [facility] Globulin 00:00:00 [facility] Rho (d) Immune 2016-03-27 Completed [facility] Globulin 00:00:00 [facility] Rho (d) Immune 2016-03-27 Completed [facility] Globulin 00:00:00 [facility] Rho (d) Immune 2016-03-27 Completed [facility] Globulin 00:00:00 [facility] Rho (d) Immune 2016-03-27 Completed [facility] Globulin 00:00:00 [facility] Rho (d) Immune 2016-03-27 Completed [facility] Globulin 00:00:00 [facility] Rho (d) Immune 2016-03-27 Completed [facility] Globulin 00:00:00 [facility] Rho (d) Immune 2016-03-27 Completed [facility] Globulin 00:00:00 [facility] Rho (d) Immune 2016-03-27 Completed [facility] Globulin 00:00:00 [facility] Rho (d) Immune 2016-03-27 Completed [facility] Globulin 00:00:00 [facility] Rho (d) Immune 2016-03-27 Completed [facility] Globulin 00:00:00 [facility] Rho (d) Immune 2016-03-27 Completed [facility] Globulin 00:00:00 [facility] Rho (d) Immune 2016-03-27 Completed [facility] Globulin 00:00:00 [facility] Rho (d) Immune 2016-03-27 Completed [facility] Globulin 00:00:00 [facility] Rho (d) Immune 2016-03-27 Completed [facility] Globulin 00:00:00 [facility] Rho (d) Immune 2016-03-27 Completed [facility] Globulin 00:00:00 [facility] Rho (d) Immune 2016-03-27 Completed [facility] Globulin 00:00:00 [facility] Rho (d) Immune 2016-03-27 Completed [facility] Globulin 00:00:00 [facility] Rho (d) Immune 2016-03-27 Completed [facility] Globulin 00:00:00 [facility] Rho (d) Immune 2016-03-27 Completed [facility] Globulin 00:00:00 [facility] Rho (d) Immune 2016-03-27 Completed [facility] Globulin 00:00:00 [facility] Rho (d) Immune 2016-03-27 Completed [facility] Globulin 00:00:00 [facility] Rho (d) Immune 2016-03-27 Completed [facility] Globulin 00:00:00 [facility] Rho (d) Immune 2016-03-27 Completed [facility] Globulin 00:00:00 [facility] Rho (d) Immune 2016-03-27 Completed [facility] Globulin 00:00:00 [facility] Rho (d) Immune 2016-03-27 Completed [facility] Globulin 00:00:00 [facility] Rho (d) Immune 2016-03-27 Completed [facility] Globulin 00:00:00 [facility] Rho (d) Immune 2016-03-27 Completed [facility] Globulin 00:00:00 [facility] Rho (d) Immune 2016-03-27 Completed [facility] Globulin 00:00:00 [facility] TDAP Unknown Completed [facility] Rho (d) Immune Unknown Completed [facility] Varicella Unknown Completed [facility] (varivax)([facility]icken [place] [facility] pox[facility] Influenza Virus Unknown Completed [facility] Vaccine Quad IM 3+ [facility] TDAP (ADACEL) Unknown Completed [facility] HPV9 Unknown Completed [facility] HPV9 Unknown Completed [facility] HPV9 Unknown Completed [facility] TDAP Unknown Completed [facility] Rho (d) Immune Unknown Completed [facility] Rho (d) Immune Unknown Completed [facility] SARS-COV-2 COVID-19 Unknown Completed Unive rsity of PFIZER VACCINE [facility] SARS-COV-2 COVID-19 Unknown Completed [facility] of PFIZER VACCINE [facility] TDAP Unknown Completed [facility] Rho (d) Immune Unknown Completed [facility] TDAP Unknown Completed [facility] Rho (d) Immune Unknown Completed [facility] Varicella Unknown Completed [facility] (varivax[facility]icken [place] [facility] pox) [facility] Influenza Virus Unknown Completed [facility] of Vaccine Quad IM 3+ [facility] TDAP (ADACEL) Unknown Completed [facility] HPV9 Unknown Completed [facility] HPV9 Unknown Completed [facility] HPV9 Unknown Completed [facility] TDAP Unknown Completed [facility] Rho (d) Immune Unknown Completed [facility] Rho (d) Immune Unknown Completed [facility] SARS-COV-2 COVID-19 Unknown Completed [facility] rs[facility] of PFIZER VACCINE [facility] SARS-COV-2 COVID-19 Unknown Completed [facility] PFIZER VACCINE [facility] TDAP Unknown Completed [facility] Rho (d) Immune Unknown Completed [facility] TDAP Unknown Completed [facility] Rho (d) Immune Unknown Completed [facility] Varicella Unknown Completed [facility] (varivax)([facility]icken [place] [facility] pox) [facility] Influenza Virus Unknown Completed [facility] Vaccine Quad IM 3+ [facility] TDAP (ADACEL) Unknown Completed [facility] HPV9 Unknown Completed [facility] HPV9 Unknown Completed [facility] HPV9 Unknown Completed [facility] TDAP Unknown Completed [facility] Rho (d) Immune Unknown Completed [facility] Rho (d) Immune Unknown Completed [facility] SARS-COV-2 COVID-19 Unknown Completed [facility] PFIZER VACCINE [facility] SARS-COV-2 COVID-19 Unknown Completed [facility] PFIZER VACCINE [facility] TDAP Unknown Completed [facility] Rho (d) Immune Unknown Completed [facility] TDAP Unknown Completed [facility] Rho (d) Immune Unknown Completed [facility] Varicella Unknown Completed [facility] (varivax[facility]chicken [place] [facility] pox) [facility] Influenza Virus Unknown Completed [facility] Vaccine Quad IM 3+ [facility] TDAP (ADACEL) Unknown Completed [facility] HPV9 Unknown Completed [facility] HPV9 Unknown Completed [facility] HPV9 Unknown Completed [facility] TDAP Unknown Completed [facility] Rho (d) Immune Unknown Completed [facility] Rho (d) Immune Unknown Completed [facility] SARS-COV-2 COVID-19 Unknown Completed [facility] PFIZER VACCINE [facility] SARS-COV-2 COVID-19 Unknown Completed [facility] PFIZER VACCINE [facility] TDAP Unknown Completed [facility] Rho (d) Immune Unknown Completed [facility] TDAP Unknown Completed [facility] Rho (d) Immune Unknown Completed [facility] Varicella Unknown Completed [facility] (varivax)(ch[facility] [place] [facility] pox) [facility] Influenza Virus Unknown Completed [facility] Vaccine Quad IM 3+ [facility] [place] TDAP (ADACEL) Unknown Completed [facility] HPV9 Unknown Completed [facility] HPV9 Unknown Completed [facility] HPV9 Unknown Completed [facility] TDAP Unknown Completed [facility] Rho (d) Immune Unknown Completed [facility] Rho (d) Immune Unknown Completed [facility] SARS-COV-2 COVID-19 Unknown Completed [facility] PFIZER VACCINE [facility] SARS-COV-2 COVID-19 Unknown Completed [facility] PFIZER VACCINE [facility] TDAP Unknown Completed [facility] Rho (d) Immune Unknown Completed [facility] Varicella Unknown Completed [facility] (varivax)(chicken [place] [facility] pox) Branch Influenza Virus Unknown Completed [facility] Vaccine Quad IM 3+ [facility] TDAP (ADACEL) Unknown Completed [facility] HPV9 Unknown Completed [facility] HPV9 Unknown Completed [facility] HPV9 Unknown Completed [facility] TDAP Unknown Completed [facility] Rho (d) Immune Unknown Completed [facility] Rho (d) Immune Unknown Completed [facility] SARS-COV-2 COVID-19 Unknown Completed [facility] PFIZER VACCINE [facility] SARS-COV-2 COVID-19 Unknown Completed [facility] PFIZER VACCINE [facility] TDAP Unknown Completed [facility] Rho (d) Immune Unknown Completed [facility] Varicella Unknown Completed [facility] (varivax)(chicken [place] [facility] pox) Branch Influenza Virus Unknown Completed [facility] Vaccine Quad IM 3+ [facility] TDAP (ADACEL) Unknown Completed [facility] HPV9 Unknown Completed [facility] HPV9 Unknown Completed [facility] HPV9 Unknown Completed [facility] TDAP Unknown Completed [facility] Rho (d) Immune Unknown Completed [facility] Varicella Unknown Completed [facility] (varivax)(chicken [place] [facility] pox) [facility] Influenza Virus Unknown Completed [facility] Vaccine Quad IM 3+ [facility] TDAP (ADACEL) Unknown Completed [facility] HPV9 Unknown Completed [facility] HPV9 Unknown Completed [facility] HPV9 Unknown Completed [facility] TDAP Unknown Completed [facility] Rho (d) Immune Unknown Completed [facility] Rho (d) Immune Unknown Completed [facility] Glob[facility] [place] [facility] SARS-COV-2 COVID-19 Unknown Completed [facility] PFIZER VACCINE [facility] SARS-COV-2 COVID-19 Unknown Completed [facility] PFIZER VACCINE [facility] TDAP Unknown Completed [facility] Rho (d) Immune Unknown Completed [facility] TDAP Unknown Completed [facility] Rho (d) Immune Unknown Completed [facility] Varicella Unknown Completed [facility] (varivax)(chicken [place] [facility] pox) [facility] Influenza Virus Unknown Completed [facility] Vaccine Quad IM 3+ [facility] TDAP (ADACEL) Unknown Completed [facility] HPV9 Unknown Completed [facility] HPV9 Unknown Completed [facility] HPV9 Unknown Completed [facility] TDAP Unknown Completed [facility] Rho (d) Immune Unknown Completed [facility] Rho (d) Immune Unknown Completed [facility] SARS-COV-2 COVID-19 Unknown Completed [facility] PFIZER VACCINE [facility] SARS-COV-2 COVID-19 Unknown Completed [facility] PFIZER VACCINE [facility] TDAP Unknown Completed [facility] Rho (d) Immune Unknown Completed [facility] TDAP Unknown Completed [facility] Rho (d) Immune Unknown Completed [facility] Varicella Unknown Completed [facility] (varivax)(chicken [place] [facility] pox) Branch Influenza Virus Unknown Completed [facility] Vaccine Quad IM 3+ [facility] TDAP (ADACEL) Unknown Completed [facility] HPV9 Unknown Completed [facility] HPV9 Unknown Completed [facility] HPV9 Unknown Completed [facility] TDAP Unknown Completed [facility] Rho (d) Immune Unknown Completed [facility] Rho (d) Immune Unknown Completed [facility] SARS-COV-2 COVID-19 Unknown Completed [facility] PFIZER VACCINE [facility] SARS-COV-2 COVID-19 Unknown Completed [facility] PFIZER VACCINE [facility] TDAP Unknown Completed [facility] Rho (d) Immune Unknown Completed [facility] TDAP Unknown Completed [facility] Rho (d) Immune Unknown Completed [facility] Varicella Unknown Completed [facility] (varivax)(chicken [place] [facility] pox) Branch Influenza Virus Unknown Completed [facility] Vaccine [facility] IM 3+ [facility] TDAP (ADACEL) Unknown Completed [facility] HPV9 Unknown Completed [facility] HPV9 Unknown Completed [facility] HPV9 Unknown Completed [facility] TDAP Unknown Completed [facility] Rho (d) Immune Unknown Completed [facility] Rho (d) Immune Unknown Completed [facility] SARS-COV-2 COVID-19 Unknown Completed [facility] PFIZER VACCINE [facility] SARS-COV-2 COVID-19 Unknown Completed [facility] PFIZER VACCINE [facility] TDAP Unknown Completed [facility] Rho (d) Immune Unknown Completed [facility] TDAP Unknown Completed [facility] Rho (d) Immune Unknown Completed [facility] Varicella Unknown Completed [facility] (varivax)(chicken [place] [facility] pox) Branch Influenza Virus Unknown Completed [facility] Vaccine [facility] IM 3+ [facility] TDAP (ADACEL) Unknown Completed [facility] HPV9 Unknown Completed [facility] HPV9 Unknown Completed [facility] HPV9 Unknown Completed [facility] TDAP Unknown Completed [facility] Rho (d) Immune Unknown Completed [facility] Rho (d) Immune Unknown Completed [facility] SARS-COV-2 COVID-19 Unknown Completed Unive rsity of PFIZER VACCINE [facility] SARS-COV-2 COVID-19 Unknown Completed [facility]ive [facility]ity of PFIZER VACCINE [facility] TDAP Unknown Completed [facility] Rho (d) Immune Unknown Completed [facility] TDAP Unknown Completed [facility] Rho (d) Immune Unknown Completed [facility] Varicella Unknown Completed [facility] (varivax[facility] [place] [facility] Influenza Virus Unknown Completed [facility] y of Vaccine Quad IM 3+ [facility] TDAP (ADACEL) Unknown Completed [facility] HPV9 Unknown Completed [facility] HPV9 Unknown Completed [facility] HPV9 Unknown Completed [facility] TDAP Unknown Completed [facility] Rho (d) Immune Unknown Completed [facility] Rho (d) Immune Unknown Completed [facility] SARS-COV-2 COVID-19 Unknown Completed [facility]ive [facility] of PFIZER VACCINE [facility] SARS-COV-2 COVID-19 Unknown Completed [facility] of PFIZER VACCINE [facility] TDAP Unknown Completed [facility] Rho (d) Immune Unknown Completed [facility] TDAP Unknown Completed [facility] Rho (d) Immune Unknown Completed [facility] Varicella Unknown Completed [facility] (varivax[facility] [place] [facility] p[facility] Influenza Virus Unknown Completed [facility] of Vaccine Quad IM 3+ [facility] [place] TDAP (ADACEL) Unknown Completed [facility] HPV9 Unknown Completed [facility] HPV9 Unknown Completed [facility] HPV9 Unknown Completed [facility] TDAP Unknown Completed [facility] Rho (d) Immune Unknown Completed [facility] Rho (d) Immune Unknown Completed [facility] SARS-COV-2 COVID-19 Unknown Completed [facility] PFIZER VACCINE [facility] SARS-COV-2 COVID-19 Unknown Completed [facility] of PFIZER VACCINE [facility] TDAP Unknown Completed [facility] Rho (d) Immune Unknown Completed [facility] TDAP Unknown Completed [facility] Rho (d) Immune Unknown Completed [facility] Varicella Unknown Completed [facility] (varivax[facility] [place] [facility] pox[facility] Influenza Virus Unknown Completed [facility] of Vaccine Quad IM 3+ [facility] TDAP (ADACEL) Unknown Completed [facility] HPV9 Unknown Completed [facility] HPV9 Unknown Completed [facility] HPV9 Unknown Completed [facility] TDAP Unknown Completed [facility] Rho (d) Immune Unknown Completed [facility] Rho (d) Immune Unknown Completed [facility] SARS-COV-2 COVID-19 Unknown Completed [facility] PFIZER VACCINE [facility] SARS-COV-2 COVID-19 Unknown Completed [facility] PFIZER VACCINE [facility] TDAP Unknown Completed [facility] Rho (d) Immune Unknown Completed [facility] Vital Signs Vital Name Observation Time Observation Value Comments Source HEIGHT 2020-09-22 06:00:00 152.4 cm WEIGHT 2020-09-22 06:00:00 80.8 kg HEIGHT 2020-09-21 19:00:00 152.4 cm WEIGHT 2020-09-21 19:00:00 80.786 kg Systolic blood 2023-01-01 19:52:00 137 mm[Hg] [facility] pressure [facility] Diastolic blood 2023-01-01 19:52:00 82 mm[Hg] Unive [facility]ity of pressure [facility] Heart rate 2023-01-01 19:52:00 102 /min [facility] Body temperature 2023-01-01 19:52:00 36.22 Shira [facility] Body height 2023-01-01 19:52:00 162.6 cm [facility] Body weight 2023-01-01 19:52:00 94.892 kg [facility] BMI 2023-01-01 19:52:00 35.91 kg/m2 [facility] Oxygen saturation in 2023-01-01 19:52:00 96 /min University Arterial blood by [facility] Pulse oximetry Branch Systolic blood 2022-12-19 18:53:00 135 mm[Hg] Univer sity of pressure [facility] Diastolic blood 2022-12-19 18:53:00 81 mm[Hg] [facility] rs[facility] of pressure [facility] Heart rate 2022-12-19 18:53:00 95 /min [facility] Body temperature 2022-12-19 18:53:00 36.28 Shira [facility] Respiratory rate 2022-12-19 18:53:00 18 /min Univ ersity of [facility] Branch Body height 2022-12-19 18:53:00 160 cm [facility] Body weight 2022-12-19 18:53:00 94.439 kg [facility] BMI 2022-12-19 18:53:00 36.88 kg/m2 [facility] Systolic blood 2022-12-04 19:25:00 137 mm[Hg] Univer sity of pressure [facility] Diastolic blood 2022-12-04 19:25:00 76 mm[Hg] Unive rsity of pressure [facility] Heart rate 2022-12-04 19:25:00 98 /min [facility] Body temperature 2022-12-04 19:25:00 36.67 Shira [facility] Respiratory rate 2022-12-04 19:25:00 18 /min [facility] Body height 2022-12-04 19:25:00 160 cm [facility] Body weight 2022-12-04 19:25:00 94.983 kg [facility] BMI 2022-12-04 19:25:00 37.09 kg/m2 [facility] Systolic blood 2022-11-26 13:10:00 121 mm[Hg] [facility] pressure [facility] Diastolic blood 2022-11-26 13:10:00 77 mm[Hg] [facility] pressure [facility] Heart rate 2022-11-26 13:10:00 107 /min [facility] Body temperature 2022-11-26 13:10:00 36.22 Shira [facility] Respiratory rate 2022-11-26 13:10:00 18 /min [facility] Body height 2022-11-26 13:10:00 160 cm [facility] Body weight 2022-11-26 13:10:00 92.534 kg [facility] BMI 2022-11-26 13:10:00 36.14 kg/m2 [facility] Systolic blood 2022-11-20 19:54:00 134 mm[Hg] [facility] pressure [facility] Diastolic blood 2022-11-20 19:54:00 86 mm[Hg] [facility] pressure [facility] Heart rate 2022-11-20 19:54:00 104 /min [facility] Body temperature 2022-11-20 19:54:00 36.67 Shira [facility] Respiratory rate 2022-11-20 19:54:00 18 /min [facility] Body weight 2022-11-20 19:54:00 92.715 kg [facility] BMI 2022-11-20 19:54:00 36.21 kg/m2 [facility] Systolic blood 2022-11-06 13:17:00 123 mm[Hg] [facility] pressure [facility] Diastolic blood 2022-11-06 13:17:00 72 mm[Hg] [facility] pressure [facility] Heart rate 2022-11-06 13:17:00 83 /min [facility] Body temperature 2022-11-06 13:17:00 35.89 Shira [facility] of [facility] Respiratory rate 2022-11-06 13:17:00 18 /min [facility] Body height 2022-11-06 13:17:00 160 cm [facility] Body weight 2022-11-06 13:17:00 91.037 kg [facility] BMI 2022-11-06 13:17:00 35.55 kg/m2 [facility] Systolic blood 2022-10-19 02:15:00 132 mm[Hg] [facility] pressure [facility] Diastolic blood 2022-10-19 02:15:00 70 mm[Hg] [facility] pressure [facility] Heart rate 2022-10-19 02:15:00 84 /min [facility] ty of [facility] Oxygen saturation in 2022-10-19 02:15:00 98 /min [facility] Arterial blood by [facility] Pulse oximetry Branch Respiratory rate 2022-10-19 02:05:00 17 /min [facility] Body temperature 2022-10-19 00:20:00 36.61 Shira [facility] Body weight 2022-10-19 00:20:00 90.719 kg [facility] BMI 2022-10-19 00:20:00 35.43 kg/m2 [facility] Systolic blood 2022-10-16 14:08:00 131 mm[Hg] [facility] pressure [facility] Diastolic blood 2022-10-16 14:08:00 68 mm[Hg] [facility] pressure [facility] Heart rate 2022-10-16 14:08:00 86 /min [facility] Body temperature 2022-10-16 14:08:00 36.78 Shira [facility] Respiratory rate 2022-10-16 14:08:00 20 /min [facility] Body height 2022-10-16 14:08:00 160 cm [facility] Body weight 2022-10-16 14:08:00 90.992 kg [facility] BMI 2022-10-16 14:08:00 35.53 kg/m2 [facility] Systolic blood 2022-10-15 01:30:00 127 mm[Hg] [facility] pressure [facility] Diastolic blood 2022-10-15 01:30:00 79 mm[Hg] [facility] Heart rate 2022-10-15 01:30:00 72 /min [facility] Respiratory rate 2022-10-15 01:30:00 18 /min [facility] of [facility] Oxygen saturation in 2022-10-15 01:30:00 100 /min [facility] Arterial blood by [facility] Pulse oximetry Branch Body temperature 2022-10-14 23:09:00 37.06 Shira [facility] Body height 2022-10-14 23:09:00 160 cm [facility] Body weight 2022-10-14 23:09:00 90.719 kg [facility] BMI 2022-10-14 23:09:00 35.43 kg/m2 [facility] Systolic blood 2022-10-07 20:38:00 121 mm[Hg] [facility] pressure [facility] Diastolic blood 2022-10-07 20:38:00 73 mm[Hg] [facility] pressure [facility] Heart rate 2022-10-07 20:38:00 92 /min [facility] Body temperature 2022-10-07 20:38:00 36.22 Shira [facility] of [facility] Respiratory rate 2022-10-07 20:38:00 18 /min [facility] Body height 2022-10-07 20:38:00 162.6 cm [facility] Body weight 2022-10-07 20:38:00 91.082 kg [facility] BMI 2022-10-07 20:38:00 34.47 kg/m2 [facility] Systolic blood 2022-09-18 15:18:00 110 mm[Hg] [facility] pressure [facility] Diastolic blood 2022-09-18 15:18:00 69 mm[Hg] [facility] pressure [facility] Heart rate 2022-09-18 15:18:00 84 /min [facility] Body temperature 2022-09-18 15:18:00 36.61 Shira [facility] Respiratory rate 2022-09-18 15:18:00 20 /min [facility] Body height 2022-09-18 15:18:00 162.6 cm [facility] Body weight 2022-09-18 15:18:00 89.994 kg [facility] BMI 2022-09-18 15:18:00 34.06 kg/m2 [facility] Systolic blood 2022-08-30 12:17:00 120 mm[Hg] [facility] pressure [facility] Diastolic blood 2022-08-30 12:17:00 75 mm[Hg] [facility] pressure [facility] Heart rate 2022-08-30 12:17:00 78 /min [facility] Body temperature 2022-08-30 12:17:00 37.39 Shira [facility] Respiratory rate 2022-08-30 12:17:00 16 /min [facility] Body height 2022-08-30 12:17:00 162.6 cm [facility] Body weight 2022-08-30 12:17:00 89.812 kg [facility] BMI 2022-08-30 12:17:00 33.99 kg/m2 [facility] Oxygen saturation in 2022-08-30 12:17:00 99 /min [facility] of Arterial blood by [facility] Pulse oximetry Branch Systolic blood 2022-08-07 20:42:00 128 mm[Hg] [facility] Diastolic blood 2022-08-07 20:42:00 67 mm[Hg] Unive rsity of pressure [facility] Heart rate 2022-08-07 20:42:00 79 /min [facility] Body temperature 2022-08-07 20:42:00 36.17 Shira [facility] Respiratory rate 2022-08-07 20:42:00 18 /min [facility] Body height 2022-08-07 20:42:00 160 cm [facility] Body weight 2022-08-07 20:42:00 90.674 kg [facility] BMI 2022-08-07 20:42:00 35.41 kg/m2 [facility] Systolic blood 2022-07-15 18:41:00 137 mm[Hg] [facility] pressure [facility] Diastolic blood 2022-07-15 18:41:00 83 mm[Hg] [facility] pressure [facility] Heart rate 2022-07-15 18:41:00 88 /min [facility] Body temperature 2022-07-15 18:41:00 37.11 Shira [facility] Respiratory rate 2022-07-15 18:41:00 16 /min [facility] Body weight 2022-07-15 18:41:00 90.765 kg [facility] BMI 2022-07-15 18:41:00 35.45 kg/m2 [facility] Oxygen saturation in 2022-07-15 18:41:00 98 /min University Arterial blood by [facility] Pulse oximetry Branch Systolic blood 2022-07-08 20:58:00 135 mm[Hg] [facility]iver [facility] of pressure [facility] Diastolic blood 2022-07-08 20:58:00 75 mm[Hg] [facility] of pressure [facility] Heart rate 2022-07-08 20:58:00 87 /min [facility]i ty of [facility] Body temperature 2022-07-08 20:58:00 36.61 Shira [facility] Respiratory rate 2022-07-08 20:58:00 18 /min Univ ersity of [facility] Body height 2022-07-08 20:58:00 160 cm [facility] Body weight 2022-07-08 20:58:00 91.683 kg [facility] BMI 2022-07-08 20:58:00 35.80 kg/m2 [facility] Systolic blood 2022-06-17 19:29:00 114 mm[Hg] [facility]iver [facility] pressure [facility] Diastolic blood 2022-06-17 19:29:00 83 mm[Hg] [facility] pressure [facility] Heart rate 2022-06-17 19:29:00 88 /min [facility] Body temperature 2022-06-17 19:29:00 36.11 Shira [facility] Respiratory rate 2022-06-17 19:29:00 18 /min [facility] Body height 2022-06-17 19:29:00 160 cm [facility] Body weight 2022-06-17 19:29:00 92.307 kg [facility] BMI 2022-06-17 19:29:00 36.05 kg/m2 [facility] Systolic blood 2022-04-22 02:32:00 129 mm[Hg] [facility] pressure [facility] Diastolic blood 2022-04-22 02:32:00 91 mm[Hg] [facility] pressure [facility] Heart rate 2022-04-22 02:32:00 70 /min [facility] Body temperature 2022-04-22 02:32:00 37 Shira [facility] Respiratory rate 2022-04-22 02:32:00 18 /min [facility] Body height 2022-04-22 02:32:00 162.6 cm [facility] Body weight 2022-04-22 02:32:00 86.183 kg [facility] BMI 2022-04-22 02:32:00 32.61 kg/m2 [facility] Oxygen saturation in 2022-04-22 02:32:00 99 /min [facility] of Arterial blood by [facility] Pulse oximetry Branch Systolic blood 2022-03-18 20:14:00 145 mm[Hg] Univer [facility]ity of pressure [facility] Diastolic blood 2022-03-18 20:14:00 76 mm[Hg] [facility]ive [facility] of pressure [facility] Heart rate 2022-03-18 20:14:00 84 /min [facility] Respiratory rate 2022-03-18 20:14:00 18 /min [facility] Oxygen saturation in 2022-03-18 20:14:00 99 /min [facility] of Arterial blood by [facility] Pulse oximetry Branch Systolic [...] 2022-02-16 21:45:00 71 /min [facility] Oxygen saturation in 2022-02-16 21:45:00 98 /min [facility] Arterial blood by [facility] Pulse oximetry Branch Body temperature 2022-02-16 18:25:13 37.22 Shira [facility] Body weight 2022-02-16 17:54:00 92.08 kg [facility] BMI 2022-02-16 17:54:00 34.84 kg/m2 [facility] Systolic blood 2022-02-12 14:54:00 120 mm[Hg] Univer [facility]ity of pressure [facility] Diastolic blood 2022-02-12 14:54:00 79 mm[Hg] Unive rsity of pressure [facility] Heart rate 2022-02-12 14:54:00 81 /min [facility] Body temperature 2022-02-12 14:54:00 36.67 Shira [facility] Respiratory rate 2022-02-12 14:54:00 18 /min [facility] Oxygen saturation in 2022-02-12 14:54:00 98 /min [facility] of Arterial blood by [facility] Pulse oximetry Branch Body height 2022-02-10 22:10:00 162.6 cm [facility] Body weight 2022-02-10 22:10:00 96.163 kg [facility] BMI 2022-02-10 22:10:00 36.39 kg/m2 [facility] Systolic blood 2022-02-06 20:04:00 120 mm[Hg] Univer [facility]ity of pressure [facility] Diastolic blood 2022-02-06 20:04:00 76 mm[Hg] [facility]ive [facility] of pressure [facility] Heart rate 2022-02-06 20:04:00 89 /min [facility] Body temperature 2022-02-06 20:04:00 36.44 Shira [facility] Respiratory rate 2022-02-06 20:04:00 18 /min [facility] Body height 2022-02-06 20:04:00 162.6 cm [facility] Body weight 2022-02-06 20:04:00 96.344 kg [facility] BMI 2022-02-06 20:04:00 36.46 kg/m2 [facility] Systolic blood 2022-02-03 21:03:00 121 mm[Hg] [facility]iver [facility] pressure [facility] Diastolic blood 2022-02-03 21:03:00 73 mm[Hg] [facility] of pressure [facility] Heart rate 2022-02-03 21:03:00 85 /min [facility] Body temperature 2022-02-03 21:03:00 36.44 Shira [facility] Respiratory rate 2022-02-03 21:03:00 17 /min [facility] Body height 2022-02-03 21:03:00 162.6 cm [facility] Body weight 2022-02-03 21:03:00 96.525 kg [facility] BMI 2022-02-03 21:03:00 36.53 kg/m2 [facility] Heart rate 2022-01-30 23:30:00 102 /min [facility] Oxygen saturation in 2022-01-30 23:30:00 99 /min [facility] of Arterial blood by [facility] Pulse oximetry Branch Systolic blood 2022-01-30 22:45:00 118 mm[Hg] Univer [facility]ity of pressure [facility] Diastolic blood 2022-01-30 22:45:00 69 mm[Hg] Unive rsity of pressure [facility] Respiratory rate 2022-01-30 22:10:00 38 /min [facility] Body temperature 2022-01-30 21:43:00 37.06 Shira [facility] of [facility] Body height 2022-01-30 21:43:00 162.6 cm [facility] Body weight 2022-01-30 21:43:00 95.709 kg [facility] BMI 2022-01-30 21:43:00 36.22 kg/m2 [facility] Systolic blood 2022-01-29 20:36:00 128 mm[Hg] Univer [facility]ity of pressure [facility] Diastolic blood 2022-01-29 20:36:00 76 mm[Hg] Unive rsity of pressure [facility] Heart rate 2022-01-29 20:36:00 78 /min [facility] Body temperature 2022-01-29 20:36:00 36.78 Shira [facility] Respiratory rate 2022-01-29 20:36:00 18 /min [facility] Body height 2022-01-29 20:36:00 162.6 cm [facility] Body weight 2022-01-29 20:36:00 96.117 kg [facility] BMI 2022-01-29 20:36:00 36.37 kg/m2 [facility] Systolic blood 2022-01-27 18:57:00 118 [...] 2022-01-27 18:57:00 36.63 kg/m2 [facility] Systolic blood 2022 21:02:00 126 [...] 2022-01-21 16:22:00 95.845 kg [facility] BMI 2022-01-21 16:22:00 36.27 kg/m2 [facility] Systolic blood 2022-01-16 19:35:00 121 mm[Hg] Univer [facility]ity of pressure [facility] Diastolic blood 2022-01-16 19:35:00 79 mm[Hg] Unive [facility]ity of pressure [facility] Heart rate 2022-01-16 19:35:00 94 /min [facility] Body temperature 2022-01-16 19:35:00 36.83 Shira [facility] Respiratory rate 2022-01-16 19:35:00 20 /min [facility] Body height 2022-01-16 19:35:00 162.6 cm [facility] Body weight 2022-01-16 19:35:00 95.936 kg [facility] BMI 2022-01-16 19:35:00 36.30 kg/m2 [facility] Systolic blood 2022-01-13 16:56:00 126 mm[Hg] Un[facility]ity of pressure [facility] Diastolic blood 2022-01-13 16:56:00 68 mm[Hg] Unive rsity of pressure [facility] Heart rate 2022-01-13 16:56:00 77 /min [facility] Body temperature 2022-01-13 16:56:00 36.5 Shira [facility] Respiratory rate 2022-01-13 16:56:00 17 /min [facility] Body height 2022-01-13 16:56:00 162.6 cm [facility] Body weight 2022-01-13 16:56:00 96.163 kg [facility] BMI 2022-01-13 16:56:00 36.39 kg/m2 [facility] Systolic blood 2022-01-09 18:46:00 115 [...] 2021-12-30 20:46:00 89 /min [facility] Body temperature 2021-12-30 20:46:00 36.22 Shira [facility] Respiratory rate 2021-12-30 20:46:00 18 /min [facility] Body height 2021-12-30 20:46:00 162.6 cm [facility] Body weight 2021-12-30 20:46:00 95.851 kg [facility] BMI 2021-12-30 20:46:00 36.27 kg/m2 [facility] Systolic blood 2021-12-17 19:45:00 127 mm[Hg] Un[facility]ity of pressure [facility] Diastolic blood 2021-12-17 19:45:00 84 mm[Hg] [facility]ive [facility]ity of pressure [facility] Heart rate 2021-12-17 19:45:00 107 /min [facility] Body temperature 2021-12-17 19:45:00 35.94 Shira [facility] Respiratory rate 2021-12-17 19:45:00 18 /min [facility] Body height 2021-12-17 19:45:00 162.6 cm [facility] Body weight 2021-12-17 19:45:00 94.065 kg [facility] BMI 2021-12-17 19:45:00 35.60 kg/m2 [facility] Heart rate 2021-12-01 21:00:00 90 /min [facility] Oxygen saturation in 2021-12-01 21:00:00 99 /min [facility] of Arterial blood by [facility] Pulse oximetry Branch Systolic blood 2021-12-01 20:45:00 136 mm[Hg] Univer [facility]ity of pressure [facility] Diastolic blood 2021-12-01 20:45:00 73 mm[Hg] [facility]ity [facility] pressure [facility] Body temperature 2021-12-01 20:12:00 36.33 Shira [facility] Respiratory rate 2021-12-01 20:12:00 18 /min [facility] Body weight 2021-12-01 19:42:00 92.987 kg [facility] BMI 2021-12-01 19:42:00 35.19 kg/m2 [facility] Systolic blood 2021-11-30 16:47:00 133 mm[Hg] [facility] Diastolic blood 2021-11-30 16:47:00 73 mm[Hg] [facility] Heart rate 2021-11-30 16:47:00 96 /min [facility] Body temperature 2021-11-30 16:47:00 36.17 Shira [facility] Respiratory rate 2021-11-30 16:47:00 18 /min [facility] Body weight 2021-11-30 16:47:00 94.031 kg [facility] [place] [facility] BMI 2021-11-30 16:47:00 35.58 kg/m2 [facility] Oxygen saturation in 2021-11-30 16:47:00 97 /min [facility] Arterial blood by [facility] Pulse oximetry Branch Systolic blood 2021-11-29 13:03:00 113 mm[Hg] [facility] Diastolic blood 2021-11-29 13:03:00 65 mm[Hg] [facility] Heart rate 2021-11-29 13:03:00 82 /min [facility] Body temperature 2021-11-29 13:03:00 36.89 Shira [facility] Respiratory rate 2021-11-29 13:03:00 20 /min [facility] Body height 2021-11-29 13:03:00 162.6 cm [facility] Body weight 2021-11-29 13:03:00 92.987 kg [facility] BMI 2021-11-29 13:03:00 35.19 kg/m2 [facility] Oxygen saturation in 2021-11-29 13:03:00 100 /min [facility] blood by [facility] Pulse oximetry Branch HEIGHT 2020-09-22 06:00:00 152.4 cm WEIGHT 2020-09-22 06:00:00 80.8 kg HEIGHT 2020-09-21 19:00:00 152.4 cm WEIGHT 2020-09-21 19:00:00 80.786 kg Procedures Procedure Date / Time Performing Clinician Source Performed POCT URINALYSIS 2023-01-01 19:56:00 Taya [facility] DME/SUPPLY JUSTIFICATION 2022-12-25 05:01:00 Doctor Unassigned, No [facility] POCT URINALYSIS 2022-12-19 18:55:00 Taya [facility] SECOND AND THIRD 2022-12-19 18:49:00 Alma Solis [facility] TRIMESTER ULTRASOUND Medical [facility] DME/SUPPLY JUSTIFICATION 2022-12-15 05:01:00 Doctor Unassigned, No [facility] DME/SUPPLY JUSTIFICATION 2022-12-11 05:01:00 Doctor Unassigned, No [facility] POCT URINALYSIS 2022-12-04 19:28:00 Taya [facility] STERILIZATION CONSENT 2022-12-04 05:01:00 Doctor Unassigned, No [facility] TDAP VACCINE, >11 YRS, IM 2022-11-26 13:29:52 Alma Solis [facility] POCT URINALYSIS 2022-11-20 19:55:00 Taya [facility] SECOND AND THIRD 2022-11-20 18:47:00 Taya [facility] TRIMESTER ULTRASOUND Medical Bra [facility] GLUCOSE 1 HOUR POST 2022-11-12 14:29:00 Alma Solis [facility] CBC WITH DIFF 2022-11-12 14:29:00 Alma Solis [facility] POCT URINALYSIS 2022-11-06 13:18:00 Taya, [facility] SECOND AND THIRD 2022-10-23 19:10:00 Taya [facility] TRIMESTER ULTRASOUND Medical [facility] SECOND AND THIRD 2022-10-23 19:04:00 [facility] Medical [facility] XR CHEST 1 VW 2022-10-19 02:40:00 Alison Oliveira [facility] CONSENT/REFUSAL FOR 2022-10-19 00:12:09 Doctor Unassigned, No [facility] [place] [facility] POCT URINALYSIS 2022-10-16 00:00:00 Taya, [facility] EKG-12 LEAD 2022-10-15 01:26:23 [facility] BASIC METABOLIC PANEL 2022-10-15 00:28:00 Marichuy Smith [facility] [place] (NA, K, CL, CO2, GLUCOSE, Medica l Branch BUN, CREATININE, CA) CBC WITH DIFF 2022-10-15 00:28:00 Scott [facility] CONSENT/REFUSAL FOR 2022-10-14 23:03:38 Doctor Unassigned, No [facility] [place] [facility] AND [facility] POCT URINALYSIS 2022-10-07 20:42:00 Taya, [facility] AUTHORIZATION FOR RELEASE 2022-10-07 05:01:00 Doctor Unassigned, No [facility] CONSENT/REFUSAL FOR 2022-08-30 12:11:49 Doctor Unassigned, No [facility] [place] [facility] POCT URINALYSIS 2022-08-07 20:46:00 Taya, [facility] FIRST TRIMESTER 2022-07-28 16:17:00 Taya, [facility] ULTRASOUND Medical Branch BASIC METABOLIC PANEL 2022-07-15 19:27:00 Dariela Jacob [facility] (NA, K, CL, CO2, GLUCOSE, Medica l Branch BUN, CREATININE, CA) CBC WITH DIFF 2022-07-15 19:27:00 Dariela Jacob [facility] URINALYSIS 2022-07-15 19:27:00 Dariela Jacob [facility] ASSIGNMENT OF BENEFITS 2022-07-15 19:07:00 Doctor Unassigned, No [facility] CONSENT/REFUSAL FOR 2022-07-15 18:26:58 Doctor Unassigned, No [facility] DIAGNOSIS AND TREATMENT Name [facility] POCT URINALYSIS 2022-07-08 20:58:00 Mallory Bain [facility] POCT TEST 2022-06-17 19:17:00 Alma Solis Uni versity [facility] POCT URINALYSIS W/O 2022-06-17 19:17:00 Alma Solis [facility] [place] SPECIFIC GRAVITY [facility] PATIENT FINANCIAL 2022-06-17 19:02:51 Doctor Unassigned, No [facility] POLICY Name [facility] POCT TEST 2022-04-22 05:04:00 Kiarra Arizmendi [facility] COMP. METABOLIC PANEL 2022-04-22 04:35:[address] [facility] ([id number]) [facility] CBC WITH DIFF 2022-04-22 04:35:00 Kiarra Arizmendi [facility] URINALYSIS 2022-04-22 04:35:00 Kiarra Arizmendi [facility] NOTICE OF PRIVACY 2022-04-22 02:08:27 Doctor Unassigned, No [facility] PRACTICES Name [facility] CONSENT/REFUSAL FOR 2022-04-22 02:07:10 Doctor Unassigned, No [facility] DIAGNOSIS AND TREATMENT [facility] PREPARE PACKED RBC 2022-02-16 23:41:05 Raven Goldsmith [facility] Medical Branch CT CHEST PULMONARY 2022-02-16 21:13:19 Agus Raven [facility] ANGIOGRAM Medical Branch CT HEAD WO CONTRAST 2022-02-16 21:12:52 Raven Goldsmith [facility] US PELVIS COMPLETE WITH 2022-02-16 19:47:38 Raven Goldsmith [facility] TRANSVAGINAL [facility] HB ABO GROUPING 2022-02-16 18:30:00 Raven Goldsmith [facility] MAGNESIUM 2022-02-16 18:29:00 Raven Goldsmith [facility] TROPONIN I 2022-02-16 18:29:00 Raven Goldsmith [facility] COMP. METABOLIC PANEL 2022-02-16 18:29:00 Raven Goldsmith [facility] ([id number]) [facility] CBC WITH DIFF 2022-02-16 18:29:00 Raven Goldsmith [facility] PROTHROMBIN TIME / INR 2022-02-16 18:29:00 Raven Goldsmith [facility] ACTIVATED PARTIAL 2022-02-16 18:29:00 [facility]LL [facility] N-TERMINAL PRO-BNP 2022-02-16 18:29:00 Raven Goldsmith [facility] URINALYSIS 2022-02-16 18:14:00 Agus [facility] URINE DRUG (IMMUNOASSAY) 2022-02-16 18:14:00 Raven Goldsmith [facility] nch SCREEN W/O REFLEX CONSENT/REFUSAL FOR 2022-02-16 17:48:27 Doctor Unassigned, No Un [facility] DIAGNOSIS AND TREATMENT Name Medical Branch CBC WITH DIFF 2022-02-12 10:03:00 Hermila Magaly [facility] HB -MATERNAL 2022-02-12 10:00:00 Hermila [facility] HEMORRHAGE SCREEN [facility] VENOUS CORD GAS 2022-02-11 16:58:00 [facility] CENTRAL NEURAXIAL BLOCK 2022-02-11 06:58:26 [facility] CBC WITH DIFF 2022-02-10 23:27:00 [facility] HEPATITIS B SURFACE 2022-02-10 23:27:00 Raya Ramirez [facility] ANTIGEN [facility] HIV 1/2 AG-AB WITH REFLEX 2022-02-10 23:27:00 [facility] - SYPHILIS 2022-02-10 23:27:00 Raya Ramirez [facility] IGG/IGM [facility] ANTI-D R/O PANEL 2022-02-10 23:25:00 Raya Ramirez [facility] HB ABO GROUPING 2022-02-10 23:25:00 James [facility] o f [facility] RHO (D) IMMUNE GLOBULIN 2022-02-10 23:25:00 Magaly [facility] AUTHORIZATION FOR RELEASE 2022-02-07 06:01:00 Doctor Unassigned, No [facility] NON-STRESS TEST 2022-02-06 21:51:27 Kevin Singh [facility] POCT URINALYSIS 2022-02-06 00:00:00 Alma Solis [facility] POCT URINALYSIS 2022-02-03 22:20:00 Alma Solis [facility] NON-STRESS TEST 2022-02-03 21:35:28 Alma Solis [facility] URINE DRUG (IMMUNOASSAY) 2022-01-30 22:11:00 Dennys Lara [facility] SCREEN URINALYSIS 2022-01-30 22:11:00 Areli Patel [facility] HB ABO GROUPING 2022-01-30 21:57:00 Areli Patel [facility] LIPASE 2022-01-30 21:52:00 Areli Patel [facility] MAGNESIUM 2022-01-30 21:52:00 Areli Patel [facility] COMP. METABOLIC PANEL 2022-01-30 21:52:00 Areli Patel [facility] ([id number]) [facility] CBC WITH DIFF 2022-01-30 21:52:00 Areli Patel [facility] PROTHROMBIN TIME / INR 2022-01-30 21:52:00 [facility] (ID NOW RAPID 2022-01-30 21:52:00 Areli Patel [facility] TESTING) [facility] HOSPITAL ADMISSION 2022-01-30 06:01:00 Doctor Unassigned, No [facility] NON-STRESS TEST 2022-01-30 02:30:41 Radha Nobles [facility] CBC WITH DIFF 2022-01-29 21:15:00 Radha Nobles [facility] GC & CHLAMYDIA AMPLIFIED 2022-01-29 21:15:00 Radha Nobles [facility] GROUP B STREPTOCOCCUS BY 2022-01-29 21:15:00 Radha Nobles [facility] POCT URINALYSIS 2022-01-29 00:00:00 Irma Alma C [facility] NON-STRESS TEST 2022-01-28 20:12:49 Mariselpe Alma C [facility] POCT URINALYSIS 2022-01-27 00:00:00 Akinsipe Alma C [facility] NON-STRESS TEST 2022 21:50:59 Akinsipe Alma C [facility] POCT URINALYSIS 2022 00:00:00 Akinsipe, Alma C [facility] NON-STRESS TEST 2022-01-21 18:09:21 Radha Nobles Un [facility] POCT URINALYSIS 2022-01-21 00:00:00 Akinsipe, Alma C [facility] NON-STRESS TEST 2022-01-16 20:01:49 [facility] NON-STRESS TEST 2022-01-13 17:45:33 Radha [facility]les [facility] POCT URINALYSIS 2022-01-13 00:00:00 Alma Solis [facility] POCT URINALYSIS 2022-01-09 18:51:00 Alma Solis [facility] NON-STRESS TEST 2022-01-07 14:56:27 Alma Solis [facility] POCT URINALYSIS 2022-01-06 19:16:00 Alma Solis [facility] PATIENT CORRESPONDENCE 2022-01-03 05:01:00 Doctor Unassigned, No [facility] (LETTERS, [facility] Name [facility] DOCUMENTATION) NON-STRESS TEST 2022-01-02 20:04:00 Kevin Singh [facility] POCT URINALYSIS 2022-01-02 00:00:00 Alma Solis [facility] POCT URINALYSIS 2021-12-30 20:47:00 Alma Solis [facility] POCT URINALYSIS 2021-12-17 19:46:00 Alma Solis [facility] TDAP VACCINE, >11 YRS, IM 2021-12-17 19:45:33 Alma Solis [facility] URINALYSIS 2021-12-01 21:41:00 Sheryl Arnold [facility] CONSENT/REFUSAL FOR 2021-12-01 19:40:14 Doctor Unassigned, No [facility] CONSENT/REFUSAL FOR 2021-11-30 16:38:10 Doctor Unassigned, No [facility] POCT URINALYSIS 2021-11-29 00:00:00 Alma Solis [facility] AUTHORIZATION FOR RELEASE 2021-07-19 05:01:00 Doctor Unassigned, No [facility] Plan of Care Planned Activity Planned [...] (3 - Td or Tdap)] Future Scheduled 2023-01-03 INFLUENZA VACCINE (#1) [facility] Test 05:34:01 [code = INFLUENZA VACCINE Ho spital (#1)] Future Scheduled 2023-01-03 COVID-19 VACCINE (#1) [facility]ist Test 05:34:01 [code = COVID-19 VACCINE Hos pital (#1)] Future Scheduled 2023-01-03 Screening for malignant [facility] 05:34:01 neoplasm of cervix Hospital (procedure) [code = 925957795] Future Scheduled 2022-11-07 Influenza Vaccine (Season [facility] Test 00:00:00 Ended) [code = Influenza Med ical Center Vaccine (Season Ended)] Future Scheduled 2022-11-07 Influenza Vaccine (#1) [facility] 00:[facility]00 [code = Influenza Vaccine Me dical Center (#1)] Future Scheduled 2022-11-07 Influenza Vaccine (#1) C [...] (#1)] Future Scheduled 2022-10-11 Screening for malignant [facility] 23:27:21 neoplasm of cervix Hospital (procedure) [code = 547798140] Future Scheduled 2022-10-11 INFLUENZA VACCINE [code = [facility] 23:27:21 INFLUENZA VACCINE] Hospital Future Scheduled 2022-10-11 COVID-19 VACCINE (#1) [facility] 23:27:21 [code = COVID-19 VACCINE Hos pital (#1)] Future Scheduled 2022-08-24 COVID-19 VACCINE (#1) [facility] 04:45:42 [code = COVID-19 VACCINE Hos pital (#1)] Future Scheduled 2022-08-24 Screening for malignant [facility] 04:45:42 neoplasm of cervix Hospital (procedure) [code = 483035278] Future Scheduled 2022-08-24 INFLUENZA VACCINE [code = [facility] 04:45:42 INFLUENZA VACCINE] Hospital Future Scheduled 2022-06-08 COVID-19 VACCINE (#1) [facility] 13:29:23 [code = COVID-19 VACCINE Hos pital (#1)] Future Scheduled 2022-06-08 Screening for malignant [facility] 13:29:23 neoplasm of cervix Hospital (procedure) [code = 018365643] Future Scheduled 2022-06-08 INFLUENZA VACCINE [code = [facility] 13:29:23 INFLUENZA VACCINE] Hospital Future Scheduled 2022-06-08 COVID-19 VACCINE (#1) [facility] 13:29:23 [code = COVID-19 VACCINE Hos pital (#1)] Future Scheduled 2022-06-08 Screening for malignant [facility] 13:29:23 neoplasm of cervix Hospital (procedure) [code = 964059419] Future Scheduled 2022-06-08 INFLUENZA VACCINE [code = [facility] 13:29:23 INFLUENZA VACCINE] Hospital Future Scheduled 2022-06-08 COVID-19 VACCINE (#1) [facility] 13:29:23 [code = COVID-19 VACCINE Hos pital (#1)] Future Scheduled 2022-06-08 Screening for malignant [facility] 13:29:23 neoplasm of cervix Hospital (procedure) [code = 321063679] Future Scheduled 2022-06-08 INFLUENZA VACCINE [code = [facility] 13:29:23 INFLUENZA VACCINE] Hospital Future Scheduled 2022-03-[address] [...] (#1)] Future Scheduled 2022-03-02 Screening for malignant [facility] 16:47:47 neoplasm of cervix Hospital (procedure) [code = 670498212] Future Scheduled 2022-03-02 INFLUENZA VACCINE [code = [facility] 16:47:47 INFLUENZA VACCINE] Hospital Future Scheduled 2022-01-12 HEPATITIS B VACCINES (1 [facility] 19:54:31 of 3 - 3-dose series) Hospit al [code = HEPATITIS B VACCINES (1 of 3 - 3-dose series)] Future Scheduled 2022-01-12 COVID-19 VACCINE (#1) [facility] 19:54:31 [code = COVID-19 VACCINE Hos pital (#1)] Future Scheduled 2022-01-12 Screening for Chlamydia [facility] 19:54:31 trachomatis (procedure) Hosp ital [code = 929194796] Future Scheduled 2022-01-12 Hepatitis C screening [facility] 19:54:31 (procedure) [code = Hospital 345897008] Future Scheduled 2022-01-12 Screening for malignant [facility] 19:54:31 neoplasm of cervix Hospital (procedure) [code = 296918718] Future Scheduled 2022-01-12 INFLUENZA VACCINE [code = [facility] 19:54:31 INFLUENZA VACCINE] Hospital Future Scheduled 2021-11-09 COVID-19 VACCINE (#1) [facility] 06:02:25 [code = COVID-19 VACCINE Hos pital (#1)] Future Scheduled 2021-11-09 Screening for Chlamydia [facility] 06:02:25 trachomatis (procedure) Hosp ital [code = 050322005] Future Scheduled 2021-11-09 Hepatitis C screening [facility] 06:02:25 (procedure) [code = Hospital 300122167] Future Scheduled 2021-11-09 Screening for malignant [facility] 06:02:25 neoplasm of cervix Hospital (procedure) [code = 066996691] Future Scheduled 2021-11-09 INFLUENZA VACCINE [code = [facility] 06:02:25 INFLUENZA VACCINE] Hospital Future Scheduled 2021-11-09 HEPATITIS B VACCINES (1 [facility] 06:02:25 of 3 - 3-dose series) Hospit al [code = HEPATITIS B VACCINES (1 of 3 - 3-dose series)] Future Scheduled 2021-11-09 COVID-19 VACCINE (#1) [facility] 06:02:25 [code = COVID-19 VACCINE Hos pital (#1)] Future Scheduled 2021-11-09 Screening for Chlamydia [facility] 06:02:25 trachomatis (procedure) Hosp ital [code = 227735454] Future Scheduled 2021-11-09 Hepatitis C screening [facility] 06:02:25 (procedure) [code = Hospital 257484473] Future Scheduled 2021-11-09 Screening for malignant [facility] 06:02:25 neoplasm of cervix Hospital (procedure) [code = 641804199] Future Scheduled 2021-11-09 INFLUENZA VACCINE [code = [facility] 06:02:25 INFLUENZA VACCINE] Hospital Future Scheduled 2021-11-09 HEPATITIS B VACCINES (1 [facility] 06:02:25 of 3 - 3-dose series) [...] cervix Medical C enter (procedure) [code = 544293438] Future Scheduled 2018 Screening for malignant [facility] Test 00:00:00 neoplasm of cervix Medical C enter (procedure) [code = 875040183] Future Scheduled 2018 Screening for malignant [facility] Test 00:00:00 neoplasm of cervix Medical C enter (procedure) [code = 573770108] Future Scheduled 2018 Screening for malignant [facility] Test 00:00:00 neoplasm of cervix Medical C enter (procedure) [code = 644647432] Future Scheduled 2018 Screening for malignant [facility] Test 00:00:00 neoplasm of cervix Medical C enter (procedure) [code = 863792092] Future Scheduled 2018 Screening for malignant [facility] Test 00:00:00 neoplasm of cervix Medical C enter (procedure) [code = 906724943] Future Scheduled 2018 Screening for malignant [facility] Test 00:00:00 neoplasm of cervix Medical C enter (procedure) [code = 335313136] Future Scheduled 2018 Screening for malignant [facility] Test 00:00:00 neoplasm of cervix Medical C enter (procedure) [code = 181799952] Future Scheduled 2018 Screening for malignant [facility] Test 00:00:00 neoplasm of cervix Medical C enter (procedure) [code = 981780101] Future Scheduled 2018 Screening for malignant [facility] Test 00:00:00 neoplasm of cervix Medical C enter (procedure) [code = 868020898] Future Scheduled 2017 Lipid panel (procedure) [facility] Test 00:00:00 [code = 18249775] Medical Ce nter Future Scheduled 2017 Lipid panel (procedure) [facility] Test 00:00:00 [code = 06920795] Medical Ce nter Future Scheduled 2017 Lipid panel (procedure) [facility] Test 00:00:00 [code = 32381750] Medical Ce nter Future Scheduled 2017 Lipid panel (procedure) [facility] Test 00:00:00 [code = 95498462] Medical Ce nter Future Scheduled 2017 Lipid panel (procedure) [facility] Test 00:00:00 [code = 93533697] Medical Ce nter Future Scheduled 2017 Lipid panel (procedure) [facility] Test 00:00:00 [code = 55057364] Medical Ce nter Future Scheduled 2017 Lipid panel (procedure) [facility] Test 00:00:00 [code = 25247311] Medical Ce nter Future Scheduled 2017 Lipid panel (procedure) [facility] Test 00:00:00 [code = 78181869] Medical Ce nter Future Scheduled 2017 Lipid panel (procedure) [facility] Test 00:00:00 [code = 44710723] Medical Ce nter Future Scheduled 2017 Lipid panel (procedure) [facility] Test 00:00:00 [code = 29328864] Medical Ce nter Future Scheduled 2015 HEPATITIS [...] screening Medical Cent er (procedure) [code = 312786061] Future Scheduled 2012-01-[address] [facility] 00:[facility]:00 virus screening Medical Cent er (procedure) [code = 403419251] Future Scheduled 1997 COVID-19 VACCINE (#1) CH [...] VACCINE Med ical Center (#1)] Future Scheduled CHLAMYDIA SCREENING [code [facility] = CHLAMYDIA SCREENING] Hospi umberto Future Scheduled COVID-19 VACCINE (1) Met hodist Test [code = COVID-19 VACCINE Hos pital (1)] Future Scheduled Hepatitis C screening [facility] (procedure) [code = Hospital 057612358] Future Scheduled Screening for malignant [facility] neoplasm of cervix Hospital (procedure) [code = 769354538] Future Scheduled INFLUENZA VACCINE [code = [facility] INFLUENZA VACCINE] Hospital Encounters Start End Encounter Admission Attending Care Care Encounter Source Date/Time Date/Time Type Type Clinicians Facility Department ID 2022-10-18 Outpatient P [facility] MARGOT [id number] Univers 22:20:09 ity [facility] 2021-12-01 Outpatient P [facility] MARGOT [id number] Univers 18:22:19 ity of [facility] 2021-01-07 Emergency [facility] [id number] Univers 07:14:20 ity of [facility] 2021-01-07 Emergency [facility] [id number] Univers 06:42:50 ity of [facility] 2021-01-07 Emergency [facility] [id number] Univers 06:25:23 ity of [facility] 2021-01-07 Emergency [facility] [id number] Univers 03:52:48 ity of [facility] 2021-01-07 Emergency [facility] [id number] Univers 03:25:06 ity of [facility] 2021-01-06 Emergency [facility] [id number] Univers 03:53:51 ity [facility] 2020-09-21 Inpatient ER TESHA, [facility] [id number] [facility] 19:23:00 JOANNE 2023-01-19 2023-01-19 Outpatient P VIRA [facility] [id number] Univers 13:30:00 13:30:00 ROLY it y of S, DE JESUS [facility] 2023-01-15 2023-01-15 Outpatient R GIULIANO [facility] [id number] Univers 15:00:00 15:00:00 RADHA ity [facility] 2023-01-02 2023-01-02 Outpatient [id number] PRIV PRIV [id number] [facility] 00:00:00 00:00:00 [email or web address]_S [id number] Medic al 2023-01-01 2023-01-01 Outpatient R FRANCISCO [facility] [id number] Univers 14:45:00 15:23:41 [facility]-01 2023-01-01 Routine Risk, Qzf-Mbtct-Os/High [facility] 1. [id number] Univers 14:45:00 15:23:41 Kevin Singh WASHERETTE MACHINE OPERATOR [id number] ity of Visit [facility] [id number] Dwayne as MATERNAL [id number] Med ical & CHILD [address] [place] [address] 2022-12-25 2022-12-25 Orders Doctor COLT 1.2.840.114 [id number] Univers 00:00:00 00:00:00 Only Unassigned, STEPHANIA 350.1.13.10 ity of [place] [facility] 4.2.7.2.686 Dwayne as [phone] [address] 2022-12-22 2022-12-22 [facility] 1.2.840.114 [id number] Univers 00:00:00 00:00:00 Alma Estevez WASHERETTE MACHINE OPERATOR [id number] ity of REGIONAL [id number] Dwayne as MATERNAL [id number] Med ical & CHILD [address] [place] [address] 2022-12-19 2022-12-19 Outpatient P TOMAS [facility] [id number] Univers 13:30:00 14:19:02 [facility] 2022-12-19 2022-12-19 Ged Preparation Teacher Ultrasound, Irene [facility] 1.2 .840.114 [id number] Univers 13:30:00 14:19:02 Visit Neal Reed WASHERETTE MACHINE OPERATOR 350.1. 13.10 ity of Eladia Marin REGIONAL 4.2.7.2 .686 [place] MATERNAL [id number] Med ical & CHILD [address] [facility] 2022-12-19 2022-12-19 Routine Akinsipe, [facility] [id number] Univers 14:15:00 14:18:51 Alma Estevez WASHERETTE MACHINE OPERATOR [id number] ity of Visit REGIONAL [id number] Dwayne as MATERNAL [id number] Med ical & CHILD [address] [place] [address] 2022-12-15 2022-12-15 Orders Doctor COLT 1.2.840.114 [id number] Univers 00:00:00 00:00:00 Only Unassigned, TSEPHANIA 350.1.13.10 ity of [facility] 4.2.7.2.686 Dwayne as [id number] [address] 2022-12-11 2022-12-11 Orders Doctor COLT 1.2.840.114 [id number] Univers 00:00:00 00:00:00 Only Unassigned, STEPHANIA 350.1.13.10 ity of [place] [facility] [facility] 4.2.7.2.686 Dwayne as [id number] [address] 2022-12-04 2022-12-04 Outpatient Bryn SINGH [facility] [id number] Univers 14:15:00 15:18:16 KEVIN hammonds [facility] 2022-12-04 2022-12-04 Routine Risk, Ytk-Ohuhv-Fr/High [facility] 1. 2.840.114 [id number] Univers 14:15:00 15:18:16 Kevin Singh WASHERETTE MACHINE OPERATOR 350.1.13.10 ity of Visit REGIONAL 4.2.7.2.686 Dwayne as MATERNAL [id number] Med ical & CHILD [address] [place] [address] 2022-12-04 2022-12-04 Orders Doctor COLT 1.2.840.114 [id number] Univers 00:00:00 00:00:00 Only Unassigned, STEPHANIA 350.1.13.10 ity of [facility] 4.2.7.2.686 Dwayne as [id number] [address] 2022-11-26 2022-11-26 Outpatient R IRMA [facility] [id number] Univers 08:00:00 08:29:21 ALMA hammonds o f [facility] 2022-11-26 2022-11-26 Nurse Visit, GurvinderRmchp Nurse [facility] 1.2 .840.114 [id number] Univers 08:00:00 08:29:21 Visit Alma oSlis WASHERETTE MACHINE OPERATOR 350.1.13. 10 ity of REGIONAL 4.2.7.2.686 Dwayne as MATERNAL [id number] [facility] ical & CHILD [address] [place] [address] 2022-11-21 2022-11-21 Case [facility] 1.2.840.114 [id number] Univers 00:00:00 00:00:00 Management Radha Begum WASHERETTE MACHINE OPERATOR 350.1.13.10 ity of REGIONAL 4.2.7.2.686 Dwayne as MATERNAL [id number] [facility] & CHILD [address] [place] [address] 2022-11-20 2022-11-20 Routine Irma [facility] 1.2.127.684 [id number] Univers 14:45:00 15:17:02 Alma Estevez WASHERETTE MACHINE OPERATOR 350.1.13.10 ity of Visit REGIONAL 4.2.7.2.686 Dwayne as MATERNAL [id number] [facility] & CHILD [address] [place] [address] 2022-11-20 2022-11-20 Outpatient P VIRA [facility] [id number] Univers 13:30:00 13:58:57 ROLY garcia y of SNEAL [facility] 2022-11-20 2022-11-20 Ged Preparation Teacher [facility]trasound[facility] 1.2 .840.114 [id number] Univers 13:30:00 13:58:57 Visit Humphrey Neal Lowry WASHERETTE MACHINE OPERATOR 350.1. 13.10 ity of REGIONAL 4.2.7.2.686 Dwayne as MATERNAL [id number] [facility] ical & CHILD [address] [facility] 2022-11-12 2022-11-12 Outpatient R IRMA [facility] [id number] Univers 08:30:00 10:35:35 ALMA braxton f [facility] 2022-11-12 2022-11-12 Ged Preparation Teacher Lab, [facility] 1.2.840. 114 [id number] Univers 08:30:00 10:35:35 Visit Alma Solis WASHERETTE MACHINE OPERATOR 350.1.13. 10 ity of REGIONAL 4.2.7.2.686 Dwayne as MATERNAL [id number] Med ical & CHILD [address] [place] [address] 2022-11-12 2022-11-12 Telephone Irma [facility] 1.2.840.114 10 [id number] Univers 00:00:00 00:00:00 Alma Estevez WASHERETTE MACHINE OPERATOR 350.1.13.10 ity of REGIONAL 4.2.7.2.686 Dwayne as MATERNAL [id number] [facility] ical & CHILD [address] [place] [address] 2022-11-06 2022-11-06 Outpatient Bryn SINGH [facility] [id number] Univers 08:15:00 08:40:18 KEVIN [facility] 2022-11-06 2022-11-06 Routine Risk, Gbk-Wfdqo-Zy/High [facility] 1. 2.840.114 [id number] Univers 08:15:00 08:40:18 Kevin Singh WASHERETTE MACHINE OPERATOR 350.1.13.10 ity of Visit REGIONAL 4.2.7.2.686 Dwayne as MATERNAL [id number] [facility] & CHILD [address] [place] [address] 2022-10-27 2022-10-27 Case Giuliano [facility] 1.2.840.114 [id number] Univers 00:00:00 00:00:00 Management Radha Begum WASHERETTE MACHINE OPERATOR 350.1.13.10 ity of REGIONAL 4.2.7.2.686 Dwayne as MATERNAL [id number] [facility] ical & CHILD [address] [place] [address] 2022-10-23 2022-10-23 Outpatient Sharon FISH [facility] [id number] Univers 13:00:00 14:45:04 LUKE [facility] 2022-10-23 2022-10-23 Ged Preparation Teacher 3, [facility] Us Room UNIVERSIT 1 .2.840.114 [id number] Univers 13:00:00 14:45:04 Visit Luke Fish [facility] 350.1.13.10 ity of CLINICS [place] [id number] [facility] [address] 2022-10-18 2022-10-18 Outpatient P BANDAR SUAREZ [facility] MARGOT [id number] Univers 19:28:00 22:19:00 BANDAR SUAREZ ity of [facility] 2022-10-18 2022-10-18 Hospital DarrenCOTL 1.2.840.114 [id number] Univers 19:28:00 22:19:00 Encounter Bandar STEPHANIA 350.1.13.10 ity of [facility] 4.2.7.2.686 Dwayne as [id number] [facility] [address] 2022-10-16 2022-10-16 Emergency EM Reina, [facility] [id number] [facility] 17:44:00 22:14:00 Martin [facility] 2022-10-16 2022-10-16 Outpatient [facility] [id number] Univers 09:15:00 09:29:49 ALMA ity o f [facility] 2022-10-16 2022-10-16 Routine [facility] 1.2.981.377 [id number] Univers 09:15:00 09:29:49 Alma Estevez WASHERETTE MACHINE OPERATOR 350.1.13.10 ity of Visit REGIONAL 4.2.7.2.686 Dwayne as MATERNAL [id number] Med ical & CHILD [address] [place] [address] 2022-10-14 2022-10-14 Emergency X [facility] ERT [id number] Univers 18:12:00 20:39:00 RICHLAND it y [facility] 2022-10-14 2022-10-14 [facility] 1.2.866.999 [id number] Univers 18:12:00 20:39:00 [facility] 350.1.13.10 ity of [place] [id number] [facility] [address] 2022-10-09 2022-10-09 Outpatient R [facility] [id number] Univers 09:45:00 09:45:00 ity of [facility] 2022-10-07 2022-10-07 Outpatient R IRMA [facility] [id number] Univers 15:30:00 16:07:49 ALMA ity o f [facility] 2022-10-07 2022-10-07 Routine [facility] 1.2.354.355 [id number] [id number] Univers 15:30:00 15:45:00 Alma Estevez WASHERETTE MACHINE OPERATOR 350.1.13.10 ity of Visit [facility] 4.2.7.2.686 Dwayne as MATERNAL [id number] Med ical & CHILD [address] [place] [address] 2022-10-07 2022-10-07 Orders Doctor COLT 1.2.840.114 [id number] Univers 00:00:00 00:00:00 Only Unassigned, STEPHANIA 350.1.13.10 ity of [place] [facility] 4.2.7.2.686 Dwayne as [id number] [address] 2022-10-07 2022-10-07 Letter [facility] 1.2.940.004 [id number] [id number] Univers 00:00:00 00:00:00 (Out) Alma Estevez WASHERETTE MACHINE OPERATOR 350.1.13.10 ity of [facility] 4.2.7.2.686 Dwayne as MATERNAL [id number] Med ical & CHILD [address] [place] [address] 2022-09-30 2022-09-30 Telephone Francisco [facility] 1.2.806.721 [id number] Univers 00:00:00 00:00:00 Kevin Hand WASHERETTE MACHINE OPERATOR 350.1.13.10 i ty of [facility] 4.2.7.2.686 Dwayne as MATERNAL [id number] [facility] ica & CHILD [address] [place] [address] 2022-09-18 2022-09-18 Outpatient R FRANCISCO [facility] [id number] Univers 10:00:00 11:13:38 KEVIN ity of [facility] 2022-09-18 2022-09-18 Routine Risk, Mgj-Pwoyx-Uu/High [facility] 1. 2.840.114 [id number] Univers 10:00:00 11:13:38 Francisco Kevin Hand WASHERETTE MACHINE OPERATOR 350.1.13.10 ity of Visit [facility] 4.2.7.2.686 Dwayne as MATERNAL [id number] Med ical & CHILD [address] [place] [address] 2022-09-18 2022-09-18 Letter [facility] 1.2.840.114 [id number] Univers 00:00:00 00:00:00 (Out) Kevin K WASHERETTE MACHINE OPERATOR 350.1.13.10 i ty of [facility] 4.2.7.2.686 Dwayne as MATERNAL [id number] [facility] ica & CHILD [address] [place] [address] 2022-09-11 2022-09-11 Outpatient R [facility] [id number] Univers 10:00:00 10:00:00 ity of [facility] 2022-08-30 2022-08-30 Emergency X [facility] ERT [id number] Univers 07:20:00 08:04:00 [facility] 2022-08-30 2022-08-30 [facility] 1.2.606.334 [id number] Univers 07:20:00 08:04:00 Dariela GUTIERREZ 350.1.13.10 i ty of [place] [facility].7.2.686 [facility] [id number] [address] 2022-08-22 2022-08-22 Telephone Florindaaure [facility] 1.2.840.114 10 [id number] Univers 00:00:00 00:00:00 Alma Herb WASHERETTE MACHINE OPERATOR 350.1.13.10 ity of [facility] 4.2.7.2.686 Dwayne as MATERNAL [id number] [facility] & CHILD [address] [place] [address] 2022-08-15 2022-08-15 Abstract Florindaaure [facility] 1.2.840.114 [id number] Univers 00:00:00 00:00:00 Alma C WASHERETTE MACHINE OPERATOR 350.1.13.10 ity of [facility] 4.2.7.2.686 Dwayne as MATERNAL [id number] [facility] ical & CHILD [address] [place], [place] [address]TON 2022-08-14 2022-08-14 Outpatient P ZEN CORREA [facility] [id number] Univers 10:45:00 12:01:26 ZEN CORREA ity [facility] 2022-08-14 2022-08-14 Ged Preparation Teacher Lab, [facility] 1.2.840. 114 [id number] Univers 11:30:00 11:47:20 Visit Akosua Edouard WASHERETTE MACHINE OPERATOR 350.1.13.10 ity of REGIONAL 4.2.7.2.686 Dwayne as MATERNAL [id number] [facility] ical & CHILD [address] [place] [address] 2022-08-14 2022-08-14 Ged Preparation Teacher 1, [facility] 1.2. 840.114 [id number] Univers 10:45:00 11:30:00 Visit JoseZen townsend WASHERETTE MACHINE OPERATOR 350.1.13.10 ity of REGIONAL 4.2.7.2.686 Dwayne as MATERNAL [id number] [facility] & CHILD [address] [facility] 2022-08-07 2022-08-07 Outpatient R IRMA [facility] [id number] Univers 16:00:00 16:01:08 ALMA hammonds o f [facility] 2022-08-07 2022-08-07 Routine [facility] 1.2.949.757 [id number] Univers 16:00:00 16:01:08 Alma Estevez WASHERETTE MACHINE OPERATOR 350.1.13.10 ity of Visit REGIONAL 4.2.7.2.686 Dwayne as MATERNAL [id number] [facility] & CHILD [address] [place] [address] 2022-07-29 2022-07-29 Abstract [facility] 1.2.840.114 [id number] Univers 00:00:00 00:00:00 Mallory WASHERETTE MACHINE OPERATOR 350.1.13.10 it y of REGIONAL 4.2.7.2.686 Dwayne as MATERNAL [id number] [facility] & CHILD [address] [place] [address] 2022-07-29 2022-07-29 Abstract Taya [facility] 1.2.840.114 [id number] Univers 00:00:00 00:00:00 Mallory WASHERETTE MACHINE OPERATOR 350.1.13.10 it y of [facility] 4.2.7.2.686 Dwayne as MATERNAL [id number] [facility] & CHILD [address] [place] [address] 2022-07-28 2022-07-28 Outpatient R CHIQUIS KATE [facility] [id number] Univers 12:00:00 12:00:00 CHIQUIS KATE [facility] 2022-07-28 2022-07-28 Ged Preparation Teacher 1, [facility] Room [facility] 1.2. 840.114 [id number] Univers 11:15:00 11:19:29 Visit Chiquis Kate WASHERETTE MACHINE OPERATOR 350.1.13.10 ity of [place] [address].2.7.2.686 Dwayne as MATERNAL [id number] [facility] & CHILD [address] [place] [address] 2022-07-15 2022-07-15 Emergency X [facility] ERT [id number] Univers 13:43:00 16:41:00 [facility] 2022-07-15 2022-07-15 Emergency [facility] 1.2.928.127 [id number] Univers 13:43:00 16:41:00 [facility] 350.1.13.10 i ty of [place] 4.2.7.2.686 [facility] [id number] [address] 2022-07-15 2022-07-15 Telephone [facility] 1.2.840.114 1 [id number] Univers 00:00:00 00:00:00 Radha Begum WASHERETTE MACHINE OPERATOR 350.1.13.10 i ty of [facility] 4.2.7.2.686 Dwayne as MATERNAL [id number] [address] 2022-07-08 2022-07-08 [facility] [id number] Univers 15:30:00 16:17:39 RADHA [facility] 2022-07-08 2022-07-08 Routine [facility] 1.2.840.114 102 [id number] Univers 15:30:00 16:17:39 Radha A WASHERETTE MACHINE OPERATOR 350.1.13.10 ity of Visit REGIONAL 4.2.7.2.686 Dwayne as MATERNAL [id number] [facility] & [address] 2022-07-08 2022-07-08 Out[facility] [id number] Univers 15:30:00 15:30:00 RADHA [facility] 2022-07-08 2022-07-08 [facility] 1.2.840.114 102 [id number] Univers 00:00:00 00:00:00 (Out) Radha Begum WASHERETTE MACHINE OPERATOR 350.1.13.10 i ty of REGIONAL 4.2.7.2.686 [place] as MATERNAL [id number] [address] 2022-07-03 2022-07-03 Out[facility] [id number] Univers 11:00:00 11:00:00 [facility] 2022-06-24 2022-06-24 Telephone [facility] 1.2.840.114 [id number] Univers 00:00:00 00:00:00 Alma Estevez WASHERETTE MACHINE OPERATOR 350.1.13.10 ity of REGIONAL 4.2.7.2.686 [place] as MATERNAL [id number] [address] 2022-06-23 2022-06-23 Telemedici Faculty, Reddy [facility] 1.2.840.114 [id number] Univers 15:30:00 16:00:00 ne Visit Seth Kay WASHERETTE MACHINE OPERATOR 350.1.13. 10 ity of REGIONAL 4.2.7.2.686 [place] as MATERNAL [id number] [address] 2022-06-23 2022-06-23 Outpatient R NIESHA [facility] [id number] Univers 15:30:00 15:30:00 [facility] 2022-06-19 2022-06-19 Telephone [facility] 1.2.073.499 [id number] Univers 00:00:00 00:00:00 Mallory WASHERETTE MACHINE OPERATOR 350.1.13.10 it y of [facility] 4.2.7.2.686 Dwayne as MATERNAL [id number] [facility] & CHILD [address] [place] [address] 2022-06-18 2022-06-18 Telephone [facility] 1.2.889.560 [id number] Univers 00:00:00 00:00:00 Mallory WASHERETTE MACHINE OPERATOR 350.1.13.10 it y of [facility] 4.2.7.2.686 Dwayne as MATERNAL [id number] [facility] & [address] 2022-06-17 2022-06-17 Outpatient R [facility] [id number] Univers 14:45:00 15:19:39 ALMA hammonds o f [facility] 2022-06-17 2022-06-17 Initial [facility] 1.2.254.064 [id number] Univers 14:45:00 15:19:39 Alma Estevez WASHERETTE MACHINE OPERATOR 350.1.13.10 ity of Visit [facility] 4.2.7.2.686 Dwayne as MATERNAL [id number] [facility] & [address] 2022-06-17 2022-06-17 Orders Doctor COLT 1.2.840.114 [id number] Univers 00:00:00 00:00:00 Only Unassigned, STEPHANIA 350.1.13.10 ity of [place] [facility] 4.2.7.2.686 Dwayne as [id number] [address] 2022-04-21 2022-04-21 Emergency X ARIZMENDI, [facility] ERT [id number] Univers 20:35:00 23:49:00 KIARRA hammonds [facility] 2022-04-21 2022-04-21 Emergency Arizmendi, [facility] 1.2.840.114 [id number] Univers 20:35:00 23:49:00 [facility] 350.1.13.10 i ty of [place] [id number] [place] [address] 2022-03-28 2022-03-28 Outpatient R GIULIANO [facility] [id number] Univers 13:00:00 13:00:00 RADHA ityolie [facility] 2022-03-27 2022-03-27 Patient Doctor COLT 1.2.840.114 [id number] Univers 00:00:00 00:00:00 Secure Msg Unassigned, STEPHANIA 350.1.13.10 ity of [place] [facility] 4.2.7.2.686 Dwayne as [id number] [facility] [address] 2022-03-18 2022-03-18 Outpatient Bryn RHOADES [facility] [id number] Univers 14:15:00 15:00:29 MAU ityolie [facility] 2022-03-18 2022-03-18 Nurse Nurse, [facility] 1.2.840.114 [id number] Univers 14:15:00 14:35:00 Visit Unknown, Attending HEALTH 350.1.13.10 ity [facility] 4.2.7.2.686 [place] as JORGE?BLEA [id number] [address] MEDICAL OFFICE BUILDING 2022-03-04 2022-03-04 Outpatient R GIULIANO [facility] [id number] Univers 11:00:00 11:52:45 RADHA hammonds [facility] 2022-03-04 2022-03-04 Routine Provider, Ember [facility] 1 .2.840.114 [id number] Univers 11:00:00 11:52:45 Radha Nobles WASHERETTE MACHINE OPERATOR 350.1.13. 10 ity of Visit [facility] 4.2.7.2.686 Dwayne as MATERNAL [id number] Med ical & CHILD [address] [place] [address] 2022-02-20 2022-02-20 Case [facility] 1.2.840.114 [id number] Univers 00:00:00 00:00:00 Management Dennys GUTIERREZ 350.1.13.10 ity of [place] 4.2.7.2.686 [facility] [id number] [address] 2022-02-20 2022-02-20 Patient Doctor [facility] 1.2.840.114 [id number] Univers 00:00:00 00:00:00 Secure Msg Unassigned, HEALTH 350.1.13.10 ity of [place] [id number] [facility] [address] OFFICE BUILDING 2022-02-17 2022-02-17 Outpatient R [facility] [id number] Univers 15:00:00 15:00:00 ity [facility] 2022-02-16 2022-02-16 Emergency X [facility] ERT [id number] Univers 12:01:00 17:40:00 [facility] 2022-02-16 2022-02-16 Emergency [facility] 1.2.033.319 [id number] Univers 12:01:00 17:40:00 Raven GUTIERREZ 350.1.13.10 i ty of [place]2.7.2.686 [place] [facility] [id number] [facility] [address] 2022-02-10 2022-02-12 Inpatient X CHIQUIS KATE [facility] MARGOT 1 [id number] Univers 15:37:00 16:21:00 CHIQUIS KATE [facility] 2022-02-10 2022-02-12 Hospital Eladia Marin 1 .2.840.114 [id number] Univers 15:37:00 16:21:00 Encounter Chiquis Kate 350.1.13.10 ity [facility] 42.7.2.686 [place] as [id number] [facility] [address] 2022-02-11 2022-02-11 Anesthesia Nory Jiménez 1.2.840 .114 [id number] Univers 00:25:00 12:19:00 Event Martha Agarwal 350.1.13.10 ity [facility] 4.2.7.2.686 Dwayne as [id number] [facility] [address] 2022-02-11 2022-02-11 [facility] [id number] Univers 10:15:00 10:15:00 RADHA [facility] 2022-02-10 2022-02-10 Telephone Irma [facility] 1.2.840.114 [id number] Univers 00:00:00 00:00:00 Alma C WASHERETTE MACHINE OPERATOR 350.1.13.10 ity of [facility]ION[facility] 4.2.7.2.686 [place] as MATERNAL [id number] [facility] & CHILD [address] [place] [address] 2022-02-07 2022-02-07 Orders Doctor COLT 1.2.840.114 [id number] Univers 00:00:00 00:00:00 Only Unassigned, STEPHANIA 350.1.13.10 ity of [place] [facility] 4.2.7.2.686 Dwayne as [id number] [address] 2022-02-06 2022-02-06 Outpatient Bryn SINGH [facility] [id number] Univers 13:30:00 14:32:26 KEVIN [facility] 2022-02-06 2022-02-06 Routine Risk, Rav-Hskpy-Lr/High [facility] 1. 2.840.114 [id number] Univers 13:30:00 14:32:26 Kevin Singh WASHERETTE MACHINE OPERATOR 350.1.13.10 ity of Visit [facility] 4.2.7.2.686 Dwayne as MATERNAL [id number] [facility] & CHILD [address] [place] [address] 2022-02-03 2022-02-03 Outpatient R IRMA [facility] [id number] Univers 15:15:00 15:34:29 ALMA ity o f [facility] 2022-02-03 2022-02-03 Routine [facility] 1.2.089.251 [id number] Univers 15:15:00 15:34:29 Alma Estevez WASHERETTE MACHINE OPERATOR 350.1.13.10 ity of Visit [facility] 4.2.7.2.686 Dwayne as MATERNAL [id number] [facility] & CHILD [address] [place] [address] 2022-01-30 2022-01-30 Outpatient González LARA [facility] MARGOT [id number] Univers 15:44:00 17:50:00 DENNYS ity [facility] 2022-01-30 2022-01-30 Emergency Areli Patel [facility] 1.2.8 40.114 [id number] Univers 15:44:00 17:50:00 Dennys Lara [facility] 350.1.13.10 ity of [place]2.7.2.686 [place] [facility] [id number] [address] 2022-01-29 2022-01-29 Outpatient R GIULIANO [facility] [id number] Univers 14:45:00 15:15:50 [facility] 2022-01-29 2022-01-29 Routine Provider, Ember Kate [facility] 1 .2.840.114 [id number] Univers 14:45:00 15:15:50 Radha Nobles WASHERETTE MACHINE OPERATOR 350.1.13. 10 ity of Visit [facility] 4.2.7.2.686 Dwayne as MATERNAL [id number] Med ical & CHILD [address] [place] [address] 2022-01-27 2022-01-27 Outpatient R IRMA, [facility] [id number] Univers 13:00:00 14:16:53 ALMA ity o [facility] 2022-01-27 2022-01-27 Routine Irma, [facility] 1.2.801.082 [id number] Univers 13:00:00 14:16:53 Alma Estevez WASHERETTE MACHINE OPERATOR 350.1.13.10 ity of Visit [facility] 4.2.7.2.686 Dwayne as MATERNAL [id number] [facility] & CHILD [address] [place] [address] 2022 2022 Outpatient R IRMA, [facility] [id number] Univers 15:00:00 15:51:27 ALMA ity o f [facility] 2022 2022 Routine Florindasiaure, [facility] 1.2.156.755 [id number] Univers 15:00:00 15:51:27 Alma Estevez WASHERETTE MACHINE OPERATOR 350.1.13.10 ity of Visit [facility] 4.2.7.2.686 Dwayne as MATERNAL [id number] [facility] ical & CHILD [address] [place] [address] 2022-01-21 2022-01-21 Outpatient R GIULIANO [facility] [id number] Univers 10:30:00 10:50:45 RADHA hammonds [facility] 2022-01-21 2022-01-21 Routine Provider, E[facility] 1 .2.840.114 [id number] Univers 10:30:00 10:50:45 Radha Nobles WASHERETTE MACHINE OPERATOR 350.1.13. 10 ity of Visit REGIONAL 4.2.7.2.686 Dwayne as MATERNAL [phone] [facility] & CHILD [address] [place] [address] 2022-01-16 2022-01-16 Outpatient Bryn SHARMA [facility] [id number] Univers 13:30:00 14:01:20 AMY hammonds [facility] 2022-01-16 2022-01-16 Routine Risk, Xhx-Jvugj-Fm/High [facility] 1. 2.840.114 [id number] Univers 13:30:00 14:01:20 Amy Sharma WASHERETTE MACHINE OPERATOR 350.1.13.10 ity of Visit [facility] 4.2.7.2.686 Dwayne as MATERNAL [id number] [facility] & CHILD [address] [place] [address] 2022-01-15 2022-01-15 [facility] 1.2.840.114 [id number] Univers 00:00:00 00:00:00 Alma Estevez WASHERETTE MACHINE OPERATOR 350.1.13.10 ity of REGIONAL 4.2.7.2.686 Dwayne as MATERNAL [id number] [facility] ical & CHILD [address] [place] [address] 2022-01-13 2022-01-13 Outpatient Bryn NOBLES [facility] [id number] Univers 11:00:00 15:39:45 RADHA yolie [facility] 2022-01-13 2022-01-13 Routine Provider, E[facility] 1 .2.840.114 [id number] Univers 11:00:00 11:15:00 RamonalivanRadha meeks Kel WASHERETTE MACHINE OPERATOR 350.1.13. 10 ity of Visit REGIONAL 4.2.7.2.686 Dwayne as MATERNAL [id number] [facility] & CHILD [address] [place] [address] 2022-01-09 2022-01-09 Ged Preparation Teacher [facility] 1.2.8 40.114 [id number] Univers 15:00:00 15:15:00 Visit Humphrey Alen Nela [facility] 350.1 .13.10 ity of [place] 4.2.7.2.686 Dwaynea s PROFESSIO [id number] [place] [address] 2022-01-09 2022-01-09 Outpatient R FRANCISCO [facility] [id number] Univers 13:45:00 14:34:17 KEVIN ity [facility] 2022-01-09 2022-01-09 Routine Risk, Pir-Ntibf-Vb/High [facility] 1. 2.840.114 [id number] Univers 13:45:00 14:34:17 Alma Solis WASHERETTE MACHINE OPERATOR 350.1.13 .10 ity of Visit Kevin Singh [facility] 4.2.7.2.686 [place] MATERNAL [phone] [facility] & [address] 2022-01-07 2022-01-07 Telephone Risk, [facility] 1.2.250.191 [id number] Univers 00:00:00 00:00:00 Ang-Rmchp-N WASHERETTE MACHINE OPERATOR 350.1.13.10 ity of p/High [facility] 4.2.7.2.686 Dwayne as MATERNAL [id number] [facility] & CHILD [address] [place] [address] 2022-01-06 2022-01-06 Outpatient R VIRA [facility] [id number] Univers 15:30:00 16:45:47 ROLY it y of NEAL Pickett [facility] 2022-01-06 2022-01-06 Telemedici Faculty, Reddy Leechp [facility] 1.2.840.114 [id number] Univers 15:30:00 16:45:47 ne Visit Vira Lowry De Jesus WASHERETTE MACHINE OPERATOR 350.1 .13.10 ity of REGIONAL 4.2.7.2.686 Dwayne as MATERNAL [id number] [facility] & CHILD [address] [place] [address] 2022-01-06 2022-01-06 Routine Alma Solis [facility] 1.2.8 40.114 [id number] Univers 14:45:00 15:33:24 Nima Katzkel Bryn WASHERETTE MACHINE OPERATOR 350.1.13.1 0 ity of Visit REGIONAL 4.2.7.2.686 Dwayne as MATERNAL [id number] [facility] & CHILD [address] [place] [address] 2022-01-03 2022-01-03 Orders Doctor COLT 1.2.840.114 [id number] Univers 00:00:00 00:00:00 Only Unassigned, STEPHANIA 350.1.13.10 ity of [place] [facility] 4.2.7.2.686 Dwayne as [phone] [address] 2022-01-02 2022-01-02 Outpatient R FRANCISCO [facility] [id number] Univers 13:30:00 15:00:16 KEVIN ity [facility] 2022-01-02 2022-01-02 Routine Risk, Vny-Effwj-Xv/High [facility] 1. 2.840.114 [id number] Univers 13:30:00 15:00:16 Kevin Singh WASHERETTE MACHINE OPERATOR 350.1.13.10 ity of Visit REGIONAL 4.2.7.2.686 Dwayne as MATERNAL [id number] [facility] & CHILD [address] [place] [address] 2022-01-02 2022-01-02 Telephone [facility], [facility] 1.2.840.114 [id number] Univers 00:00:00 00:00:00 Alma Estevez WASHERETTE MACHINE OPERATOR 350.1.13.10 ity of [facility] 4.2.7.2.686 Dwayne as MATERNAL [phone] [facility] & CHILD [address] [place] [address] 2021-12-30 2021-12-30 Routine Irma, [facility] 1.2.460.641 [id number] Univers 15:30:00 15:45:00 Alma C WASHERETTE MACHINE OPERATOR 350.1.13.10 ity of Visit REGIONAL 4.2.7.2.686 Dwayne as MATERNAL [id number] [facility] & CHILD [address] [place] [address] 2021-12-30 2021-12-30 Outpatient [facility] [id number] Univers 15:30:00 15:30:00 ALMA ity o [facility] 2021-12-17 2021-12-17 Outpatient R AKINSIPE, [facility] [id number] Univers 14:00:00 15:10:22 ALMA ity o [facility] 2021-12-17 2021-12-17 Routine [facility] 1.2.088.459 [id number] Univers 14:00:00 15:10:22 Alma C WASHERETTE MACHINE OPERATOR 350.1.13.10 ity of Visit REGIONAL 4.2.7.2.686 Dwayne as MATERNAL [id number] [facility] & CHILD [address] [place] [address] 2021-12-13 2021-12-13 Outpatient [facility] [id number] Univers 09:15:00 09:15:00 ALMA ity o [facility] 2021-12-10 2021-12-10 Telephone [facility] 1.2.840.114 [id number] Univers 00:00:00 00:00:00 Alma C WASHERETTE MACHINE OPERATOR 350.1.13.10 ity of REGIONAL 4.2.7.2.686 Dwayne as MATERNAL [id number] [facility] & CHILD [address] [place] [address] 2021-12-05 2021-12-05 Abstract [facility] 1.2.840.114 [id number] Univers 00:00:00 00:00:00 Alma C WASHERETTE MACHINE OPERATOR 350.1.13.10 ity of REGIONAL 4.2.7.2.686 Dwayne as MATERNAL [id number] [facility] & CHILD [address] [place] [address] 2021-12-01 2021-12-01 Outpatient [facility] MARGOT [id number] Univers 14:52:00 18:22:00 RIZO ity [facility] 2021-12-01 2021-12-01 Hospital Polina COLT 1.2.897.729 [id number] Univers 14:52:00 18:22:00 Encounter Luke Rosibel STEPHANIA 350.1.13.10 ity [facility] 4.2.7.2.686 Dwayne as [phone] [facility] [address] 2021-11-30 2021-11-30 Emergency [facility] E[facility] [id number] Univers 11:50:00 12:13:00 ARELI ity [facility] 2021-11-30 2021-11-30 Emergency [facility] 1.2.840.114 [id number] Univers 11:50:00 12:13:00 Areli GUTIERREZ 350.1.13.10 ity [facility] 4.2.7.2.686 [facility] [phone] [facility] [address] 2021-11-30 2021-11-30 Letter COLT Wyman 1.2.840.114 [id number] Univers 00:00:00 00:00:00 (Out) Vijaya CAT 350.1.13.10 it y [facility] 4.2.7.2.686 Dwayne as [id number] [facility] [address] 2021-11-29 2021-11-29 Ged Preparation Teacher Ultrasound, [facility] 1.2 .840.114 [id number] Univers 15:15:00 16:00:00 Visit Trever Katz WASHERETTE MACHINE OPERATOR 350.1.13.10 ity Zen Correa [facility] 4.2.7.2.686 [place] MATERNAL [id number] Med ical & CHILD [address] [place] [address] 2021-11-29 2021-11-29 Outpatient P [facility] [id number] Univers 15:15:00 15:15:00 ity [facility] 2021-11-29 2021-11-29 Outpatient R GINANA NYSONJA [facility] [id number] Univers 07:45:00 08:28:49 TREVER hammonds o f [facility] 2021-11-29 2021-11-29 Routine Gianna NYSONJA 1.2.840.114 [id number] Univers 07:45:00 08:28:49 Roshunda R WASHERETTE MACHINE OPERATOR 350.1.13.10 ity of Visit REGIONAL 4.2.7.2.686 Dwayne as MATERNAL [phone] [facility] & [address] 2021-11-28 2021-11-28 Outpatient R [facility] [id number] Univers 14:45:00 14:45:00 ALMA ity o f [facility] 2021-11-19 2021-11-19 Telephone [facility] 1.2.840.114 [id number] Univers 00:00:00 00:00:00 Alma C WASHERETTE MACHINE OPERATOR 350.1.13.10 ity of REGIONAL 4.2.7.2.686 Dwayne as MATERNAL [id number] [address] 2021-11-12 2021-11-12 Routine [facility] 1.2.264.938 [id number] Univers 14:45:00 15:00:00 Alma C WASHERETTE MACHINE OPERATOR 350.1.13.10 ity of Visit REGIONAL 4.2.7.2.686 Dwayne as MATERNAL [phone] [address] 2021-11-12 2021-11-12 [facility] [id number] Univers 14:45:00 14:45:00 ALMA hammonds o f [facility] 2021-11-04 2021-11-04 Telemedici Faculty, [facility] 1.2.840.114 [id number] Univers 15:00:00 15:30:00 ne Visit Anton Renteria WASHERETTE MACHINE OPERATOR 350.1.13.10 ity of REGIONAL 4.2.7.2.686 Dwayne as MATERNAL [id number] [facility] & [address] 2021-11-04 2021-11-04 Outpatient P DEXTER [facility] [id number] Univers 15:00:00 15:00:00 ANTON hammonds o f [facility] 2021-10-28 2021-10-28 Outpatient P [facility] [id number] Univers 15:00:00 15:00:00 ity [facility] 2021-10-22 2021-10-22 Abstract [facility] 1.2.840.114 [id number] Univers 00:00:00 00:00:00 Alma C WASHERETTE MACHINE OPERATOR 350.1.13.10 ity of REGIONAL 4.2.7.2.686 Dwayne as MATERNAL [phone] [facility] ical & CHILD [address] [place] [address] 2021-10-17 2021-10-17 Ged Preparation Teacher 1, Suzie[facility] Room [facility] 1.2. 840.114 [id number] Univers 14:15:00 16:36:19 Visit Abena Patel WASHERETTE MACHINE OPERATOR 350.1.13.10 ity of REGIONAL 4.2.7.2.686 Dwayne as MATERNAL [id number] Med ical & CHILD [address] [place] [address] 2021-10-17 2021-10-17 Outpatient P JORGE [facility] [id number] Univers 14:15:00 14:15:00 ABENA [facility] 2021-10-15 2021-10-15 Outpatient R IRMA, [facility] [id number] Univers 13:00:00 13:45:11 ALMA braxton [facility] 2021-10-15 2021-10-15 Routine Irma, [facility] 1.2.014.005 [id number] Univers 13:00:00 13:45:11 Alma C WASHERETTE MACHINE OPERATOR 350.1.13.10 ity of Visit REGIONAL 4.2.7.2.686 Dwayne as MATERNAL [phone] [facility] & CHILD [address] [place] [address] 2021-10-11 2021-10-11 Outpatient P [facility] [id number] Univers 14:15:00 14:15:00 [facility] 2021-10-07 2021-10-07 Outpatient R IRMA, [facility] [id number] Univers 12:45:00 13:37:44 ALMA hammonds o f [facility] 2021-10-07 2021-10-07 Routine [facility] 1.2.021.692 [id number] Univers 12:45:00 13:37:44 Alma C WASHERETTE MACHINE OPERATOR 350.1.13.10 ity of Visit REGIONAL 4.2.7.2.686 Dwayne as MATERNAL [id number] [facility] & CHILD [address] [place] [address] 2021-10-07 2021-10-07 Orders Doctor COLT 1.2.840.114 [id number] Univers 00:00:00 00:00:00 Only Unassigned, STEPHANIA 350.1.13.10 ity of [place] [facility] 4.2.7.2.686 Dwayne as [id number] [address] 2021-10-03 2021-10-03 Outpatient [facility] [id number] Univers 16:00:00 16:00:00 ALMA braxton [facility] 2021-09-19 2021-09-19 Orders Doctor COLT 1.2.840.114 [id number] Univers 00:00:00 00:00:00 Only Unassigned, STEPHANIA 350.1.13.10 ity of [place] [facility] 4.2.7.2.686 Dwayne as [phone] [address] 2021-09-05 2021-09-05 [facility] [id number] Univers 15:30:00 16:02:29 ALMA braxton [facility] 2021-09-05 2021-09-05 Routine [facility] 1.2.973.657 [id number] Univers 15:30:00 16:02:29 Alma C WASHERETTE MACHINE OPERATOR 350.1.13.10 ity of Visit REGIONAL 4.2.7.2.686 Dwayne as MATERNAL [id number] [facility] & CHILD [address] [place] [address] 2021-09-02 2021-09-02 Orders Doctor COLT 1.2.840.114 [id number] Univers 00:00:00 00:00:00 Only Unassigned, STEPHANIA 350.1.13.10 ity of [place] [facility] 4.2.7.2.686 Dwayne as [id number] [address] 2021-08-19 2021-08-19 Outpatient R POLINA [facility] [id number] Univers 15:00:00 15:00:00 LUKE yolie [facility] 2021-08-19 2021-08-19 Ged Preparation Teacher Lab, [facility] 1.2.840. 114 [id number] Univers 15:00:00 15:00:00 Visit Luke Fish WASHERETTE MACHINE OPERATOR 350.1.13.10 ity of [facility] 4.2.7.2.686 Dwayne as MATERNAL [phone] [facility] ical & CHILD [address] [place] [address] 2021-08-19 2021-08-19 Ged Preparation Teacher 1, [facility] 1.2. 840.114 [id number] Univers 14:15:00 14:51:59 Visit Luke Fish WASHERETTE MACHINE OPERATOR 350.1.13.10 ity of [facility] 4.2.7.2.686 Dwayne as MATERNAL [id number] [facility] & CHILD [address] [place] [address] 2021-08-19 2021-08-19 Outpatient P [facility] [id number] Univers 14:15:00 14:15:00 ity [facility] 2021-08-19 2021-08-19 Abstract [facility] 1.2.840.114 [id number] Univers 00:00:00 00:00:00 Alma Estevez WASHERETTE MACHINE OPERATOR 350.1.13.10 ity of [facility] 4.2.7.2.686 Dwayne as MATERNAL [id number] Med ical & CHILD [address] [place] [address] 2021-08-08 2021-08-08 Outpatient R IRMA [facility] [id number] Univers 15:30:00 16:15:10 ALMA hammonds o f [facility] 2021-08-08 2021-08-08 Routine [facility] 1.2.446.055 [id number] Univers 15:30:00 16:15:10 Alma Estevez WASHERETTE MACHINE OPERATOR 350.1.13.10 ity of Visit [facility] 4.2.7.2.686 Dwayne as MATERNAL [id number] [facility] & CHILD [address] [place] [address] 2021-08-08 2021-08-08 Outpatient R IRMA [facility] [id number] Univers 15:30:00 16:15:10 ALMA cassius o f [facility] 2021-08-08 2021-08-08 Outpatient [facility] [id number] Univers 15:30:00 15:30:00 ALMA hammonds o [facility] 2021-07-25 2021-07-25 Telephone [facility] 1.2.840.114 [id number] Univers 00:00:00 00:00:00 Alma Estevez WASHERETTE MACHINE OPERATOR 350.1.13.10 ity of REGIONAL 4.2.7.2.686 Dwayne as MATERNAL [id number] [facility] & [address] 2021-07-19 2021-07-19 Orders Doctor COLT 1.2.840.114 [id number] Univers 00:00:00 00:00:00 Only Unassigned, STEPHANIA 350.1.13.10 ity of [place] [facility] 4.2.7.2.686 Dwayne as [id number] [address] 2021-07-18 2021-07-18 Outpatient R ZACHARY [facility] [id number] Univers 13:15:00 13:52:24 AMY hammonds [facility] 2021-07-18 2021-07-18 Routine Risk, Okq-Nedtw-Sj/High [facility] 1. 2.840.114 [id number] Univers 13:15:00 13:52:24 Amy Sharma WASHERETTE MACHINE OPERATOR 350.1.13.10 ity of Visit REGIONAL 4.2.7.2.686 Dwayne as MATERNAL [id number] [address] 2021-07-11 2021-07-11 Outpatient R IRMA [facility] [id number] Univers 15:00:00 16:21:03 ALMA hammonds o [facility] 2021-07-11 2021-07-11 Initial [facility] 1.2.732.272 [id number] Univers 15:00:00 16:21:03 Alma Estevez WASHERETTE MACHINE OPERATOR 350.1.13.10 ity of Visit [facility] 4.2.7.2.686 Dwayne as MATERNAL [phone] Med ical & CHILD [address] [place] [address] 2021-07-11 2021-07-11 Outpatient Bryn SOLIS [facility] [id number] Univers 15:00:00 16:21:03 ALMA garciay o f [facility] 2021-07-11 2021-07-11 Orders Doctor COLT 1.2.840.114 [id number] Univers 00:00:00 00:00:00 Only Unassigned, STEPHANIA 350.1.13.10 ity of [place] [facility] 4.2.7.2.686 Dwayne as [id number] [facility] [address] 2021-05-14 2021-05-14 Outpatient RICHARD DYKES [facility] [id number] Univers 10:40:00 10:40:00 RICHARD ANDERSON ityolie [facility] 2021-04-27 2021-04-27 Letter COLT Wyman 1.2.840.114 [id number] Univers 00:00:00 00:00:00 (Out) Vijaya CAT 350.1.13.10 it y of [place] [address].2.7.2.686 Dwayne as [id number] [facility] [address] 2021-04-26 2021-04-26 Emergency X [facility] ERT [id number] Univers 17:29:00 19:21:00 KIARRA hammonds [facility] 2021-04-26 2021-04-26 Emergency [facility] 1.2.840.114 [id number] Univers 17:29:00 19:21:00 Kiarra [facility] 350.1.13.10 i ty [facility] 4.2.7.2.[place] [id number] [facility] [address] 2021-04-25 2021-04-25 Outpatient Bryn KENNEY [facility] [id number] Univers 09:45:00 09:54:55 ANGELO hammonds [facility] 2021-04-25 2021-04-25 Office [facility] 1.2.358.959 [id number] Univers 09:45:00 09:54:55 Visit Angelo [facility] 350.1.13.10 it y of [place] 4.2.7.2.686 Dwayne as JORGE?BLEA [id number] Ny anselmo GALLARDO [address] MEDICAL OFFICE BUILDING 2021-04-18 2021-04-18 Emergency X [facility] ERT [id number] Univers 12:29:00 15:20:00 BERTHA ity of [facility] 2021-04-18 2021-04-18 Emergency [facility] 1.2.034.872 [id number] Univers 12:29:00 15:20:00 Bertha S [place] 350.1.13.10 i ty of [place].7.2.[place] [id number] [facility] [address] 2021-04-18 2021-04-18 Orders Doctor COLT 1.2.840.114 [id number] Univers 00:00:00 00:00:00 Only Unassigned, STEPHANIA 350.1.13.10 ity of [place] [facility] 4.2.7.2.686 Dwayne as [id number] [facility] [address] 2021-04-05 2021-04-05 Telephone [facility] 1.2.840.114 [id number] Univers 00:00:00 00:00:00 Alma Estevez WASHERETTE MACHINE OPERATOR 350.1.13.10 ity of [facility] 4.2.7.2.686 Dwayne as MATERNAL [id number] Med ical & CHILD 107 [facility] 2021-03-22 2021-03-22 Refill Aditi [facility] 1.2.840.114 [id number] Univers 00:00:00 00:00:00 [facility] 350.1.13.10 ity of [place] 4.2.7.2.686 Dwayne as JORGE?BLEA [phone] Ny anselmo GALLARDO [address] MEDICAL OFFICE [facility] 2021-03-12 2021-03-12 Office Aditi [facility] 1.2.840.114 [id number] Univers 16:00:00 16:44:59 Visit [facility] 350.1.13.10 ity of [place] 4.2.7.2.686 Dwayne as JORGE?BLEA [id number] [address] 2021-03-12 2021-03-12 Outpatient RICHARD YDKES [facility] [id number] Univers 16:00:00 16:44:59 RICHARD ANDERSON yolie [facility] 2021-03-12 2021-03-12 Outpatient RICHARD DYKES [facility] [id number] Univers 16:00:00 16:00:00 RICHARD ANDERSON [facility] 2021-02-26 2021-02-26 Telephone Aditi [facility] 1.2.840.114 [id number] Univers 00:00:00 00:00:00 [facility] 350.1.13.10 ity of [place] 4.2.7.2.686 Dwayne as JORGE?BLEA [id number] [address] 2021-02-17 2021-02-17 Emergency X SALAS [facility] ERT [id number] Univers 18:01:00 22:48:00 ARMEN [facility] 2021-02-17 2021-02-17 Emergency Raven Goldsmith [facility] 1.2.840. 114 [id number] Univers 18:01:00 22:48:00 Claireyamiletlula Olenayong Pickett [place] 350.1.13.10 ity of [place].7.2.[place] [id number] [facility] [address] [place] [address] 2021-01-11 2021-01-11 Ged Preparation Teacher Lab, Ang-Rmchp [facility] 1.2.840. 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 2020-12-18 2020-12-18 Outpatient R JORGE [facility] [id number] Univers 09:00:00 09:00:00 ABENA hammonds [facility] 2020-11-26 2020-11-26 Office [facility] 1.2.840.114 [id number] Univers 07:48:27 09:58:10 Visit [facility] 350.1.13.10 ity of [place] 4.2.7.2.686 Dwayne as Jorge?Blea [phone] [address] Office [facility] 2020-11-26 2020-11-26 Outpatient R RICHARD ANDERSON [facility] [id number] Univers 08:00:00 08:00:00 RICHARD ANDERSON [facility] 2020-11-26 2020-11-26 Letter Aditi [facility] 1.2.840.114 [id number] Univers 00:00:00 00:00:00 (Out) [facility] 350.1.13.10 ity of [place] 4.2.7.2.686 Dwayne as Jorge?Blea [phone] Ny anselmo gallardo [address] [place] [address] Office [facility] 2020-11-20 2020-11-20 Outpatient R RICHARD ANDERSON [facility] [id number] Univers 08:00:00 08:00:00 RICHARD ANDERSON [facility] 2020-11-14 2020-11-14 Telephone Aditi [facility] 1.2.840.114 [id number] Univers 00:00:00 00:00:00 [facility] 350.1.13.10 ity of [place]2.[place].2.[place] [phone] Ny dical nal 092 [facility] 2020-11-01 2020-11-01 Outpatient R BRAD [facility] [id number] Univers 14:00:00 14:35:39 LILIANA hammonds [facility] 2020-11-01 2020-11-01 Office [facility] 1.2.840.114 [id number] Univers 13:43:12 14:35:39 Visit Liliana Evelin SPECIALTY 350.1.13.10 ity of CARE 4.2.7.2.686 [facility] s CENTER AT [phone] Ny dicazalia BEDOYA 204 [facility] 2020-11-01 2020-11-01 Office [facility] 1.2.840.114 [id number] Univers 13:43:12 14:35:39 Visit Liliana Evelin SPECIALTY 350.1.13.10 ity of CARE 4.2.7.2.686 [facility] s BONESTEEL AT [id number] Ny anselmo BEDOYA 204 [facility] 2020-11-01 2020-11-01 Outpatient R BRAD [facility] [id number] Univers 14:00:00 14:00:00 LILIANA hammonds [facility] 2020-10-19 2020-10-19 Outpatient R RICHARD ANDERSON [facility] [id number] Univers 08:40:00 08:40:00 [facility] 2020-10-18 2020-10-18 [facility] 1.2.840.114 [id number] Univers 12:54:28 23:59:00 Encounter Lauryn Gutierrez 350.1.13.10 ity Gail Hannah 4.2.7.2.686 [facility] [phone] [facility] tressa [address] 2020-10-18 2020-10-18 Outpatient [facility] [id number] Univers 00:00:00 00:00:00 LAURYN pierce [facility] 2020-10-15 2020-10-15 Telephone [facility] 1.2.840.114 [id number] Univers 00:00:00 00:00:00 Abena N WASHERETTE MACHINE OPERATOR 350.1.13.10 it y of [facility] 4.2.7.2.686 [place]ne as MATERNAL [id number] Med ical & CHILD [address] [place] [address] 2020-10-15 2020-10-15 Telephone DUANE Patel 1.2.840.114 [id number] 00:00:00 00:00:00 Abena N WASHERETTE MACHINE OPERATOR 350.1.13.10 REGIONAL 4.2.7.2.686 MATERNAL [id number] & CHILD [address] [place] [address] 2020-10-12 2020-10-12 Telephone [facility] 1.2.840.114 [id number] [facility] 00:00:00 00:00:00 Abena N WASHERETTE MACHINE OPERATOR 350.1.13.10 it y of [facility]AL 4.2.7.2.686 Dwayne as MATERNAL [phone] Med ical & CHILD [address] [place] [address] 2020-10-12 2020-10-12 Telephone Jorge [facility] 1.2.840.114 [id number] 00:00:00 00:00:00 Abena N WASHERETTE MACHINE OPERATOR 350.1.13.10 REGIONAL 4.2.7.2.686 MATERNAL [phone] & CHILD [address] [place] [address] 2020-10-11 2020-10-11 [facility] JORGE NYSONJA [facility] [id number] [facility] 15:15:00 15:15:00 ABENA cassius [facility] 2020-10-11 2020-10-11 Telephone Jorge [facility] 1.2.840.114 [id number] [facility] 00:00:00 00:00:00 Abena N WASHERETTE MACHINE OPERATOR 350.1.13.10 it y of REGIONAL 4.2.7.2.686 Dwayne as MATERNAL [phone] Med ical & CHILD [address] [place] [address] 2020-10-11 2020-10-11 [place] Jorge [facility] 1.2.840.114 [id number] 00:00:00 00:00:00 Abena N WASHERETTE MACHINE OPERATOR 350.1.13.10 REGIONAL 4.2.7.2.686 MATERNAL [phone] & CHILD [address] [place] [address] 2020-10-09 2020-10-09 [facility] 1.2.087.980 [id number] [facility] 15:44:08 16:29:53 Visit Abena [place] WASHERETTE MACHINE OPERATOR 350.1.13.10 it y of REGIONAL 4.2.7.2.686 Dwayne as MATERNAL [phone] Med ical & CHILD [address] [facility] 2020-10-09 2020-10-09 Office [facility] 1.2.700.147 [id number] 15:44:08 16:29:53 Visit Abena [place] WASHERETTE MACHINE OPERATOR 350.1.13.10 REGIONAL 4.2.7.2.686 MATERNAL [phone] & CHILD [address] [place] [address] 2020-10-09 2020-10-09 Outpatient [facility] [id number] [facility] 15:45:00 15:45:00 ABENA cassius [facility] 2020-10-09 2020-10-09 Orders Doctor COLT 1.2.840.114 [id number] Univers 00:00:00 00:00:00 Only Unassigned, STEPHANIA 350.1.13.10 ity of [place] [facility] 4.2.7.2.686 Dwayne as [phone] [facility] [address] 2020-10-09 2020-10-09 Patient Doctor COLT 1.2.840.114 [id number] Univers 00:00:00 00:00:00 Secure Msg Unassigned, STEPHANIA 350.1.13.10 ity of [place] [facility] 4.2.7.2.686 Dwayne as [phone] [facility] [address] 2020-10-08 2020-10-08 Transition Julio [place] 1.2.840.114 [id number] Univers 00:00:00 00:00:00 of Care Mesfin Guerrero 350.1.13.10 ity of [place] [phone] [facility] [address] 2020-10-01 2020-10-05 Hospital Mary Rios 1.2.840.114 [id number] Univers 09:39:00 10:22:00 Encounter S Bolt 350.1.13.10 ity of Hospital 4.2.7.2.686 [place] as [phone] [facility] [address] 2020-10-01 2020-10-01 Outpatient R MARY RIOS [facility] [id number] Univers 08:30:00 08:30:00 ity of [facility] 2020-10-01 2020-10-01 Orders Doctor COLT 1.2.840.114 [id number] Univers 00:00:00 00:00:00 Only Unassigned, STEPHANIA 350.1.13.10 ity of [place] [facility] 4.2.7.2.686 [place]way[place] as [phone] [facility] [address] 2020-09-30 2020-09-30 Orders Doctor COLT 1.2.840.114 [id number] Univers 00:00:00 00:00:00 Only Unassigned, STEPHANIA 350.1.13.10 ity of [place] [facility] 4.2.7.2.686 [place]way[place] as [id number] [facility] [address] 2020-09-28 2020-09-28 Outpatient R JORGE [facility] [id number] Univers 09:30:00 09:30:00 ABENA ity of [facility] 2020-09-26 2020-09-26 Laboratory Only, Adc Test [facility] 1.2.840. 114 [id number] Univers 12:05:49 12:20:49 Only Mary Rios [place] 350.1.13.10 [place] [phone] [facility] [address] 2020-09-26 2020-09-26 Outpatient R [facility] [id number] Univers 12:00:00 12:00:00 ity of [facility] 2020-09-26 2020-09-26 Orders Doctor GREGORY 1.2.840.114 [id number] Univers 00:00:00 00:00:00 Only Unassigned, STEPHANIA 350.1.13.10 ity of [place] [facility] 4.2.7.2.686 [place]way[place] as [id number] [facility] [address] 2020-09-21 2020-09-21 Outpatient R RICHARD ANDERSON [facility] [id number] Univers 10:00:00 10:00:00 RICHARD ANDERSON ity of [facility] 2020-09-14 2020-09-15 Emergency Glenis, TRAUMA 1.2.995.694 [id number] Univers 21:58:00 00:49:00 Cheo MOORE 350.1.13.10 [place] [phone] [facility] [address] 2020-09-12 2020-09-13 Emergency [place] [facility] 1.2.840.114 [id number] Univers 19:41:00 00:37:00 Yulia Gutierrez 350.1.13.10 i [place] [id number] [place] [address] [place] 2020-09-12 2020-09-12 Telephone Aditi [facility] 1.2.840.114 [id number] Univers 00:00:00 00:00:00 Richard Gutierrez 350.1.13.10 [place] [phone] [place] [id number] [facility] 2020-09-11 2020-09-11 Emergency [facility] 1.2.090.649 [id number] Univers 20:23:00 22:08:00 Wong Gutierrez 350.1.13.10 i [place] [id number] [address] 2020-08-31 2020-08-31 Emergency [place] [facility] 1.2.840.114 [id number] Univers 11:19:00 13:58:00 Yulia Gutierrez 350.1.13.10 i [place] [id number] [address] 2020-08-29 2020-08-29 Emergency Kwaku [facility] 1.2.840.114 [id number] Univers 20:48:00 23:11:00 Yulia Gutierrez 350.1.13.10 i [place] [phone] [address] 2020-06-07 2020-06-07 Office Irma [facility] 1.2.393.698 [id number] Univers 10:50:31 11:18:03 Visit Alma Estevez WASHERETTE MACHINE OPERATOR 350.1.13.10 ity of [facility] 4.2.7.2.686 [place]wayne as MATERNAL [phone] [facility] ical & CHILD 107 [facility] 2020-06-07 2020-06-07 Outpatient R IRMA [facility] [id number] Univers 11:00:00 11:00:00 ALMA hammonds o f [facility] 2020-05-29 2020-05-29 Patient [facility] 1.2.840.114 [id number] Univers 00:00:00 00:00:00 Outreach Santosh AN 350.1.13.10 i ty of [facility] [place].2.7.2.[place] [phone] Ny dical [address] 2020-05-13 2020-05-13 Emergency [place] [facility] 1.2.840.114 [id number] Univers 19:12:00 21:45:00 [facility] 350.1.13.10 [place] [phone] [address] 2020-05-13 2020-05-13 Orders Doctor COLT 1.2.840.114 [id number] Univers 00:00:00 00:00:00 Only Unassigned, STEPHANIA 350.1.13.10 ity of [place] [facility] 4.2.7.2.686 [place] as [phone] [facility] [address] 2020-01-19 2020-01-19 Telephone Visit, [facility] 1.2.866.975 [id number] Univers 00:00:00 00:00:00 Reddy-Jesuschsharon WASHERETTE MACHINE OPERATOR 350.1.13.10 ity of [facility] 4.2.7.2.686 [place] as MATERNAL [phone] [facility] & CHILD 107 [facility] 2020-01-17 2020-01-17 Office Gianna [facility] 1.2.840.114 [id number] Univers 13:39:45 14:25:08 Visit Trever R WASHERETTE MACHINE OPERATOR 350.1.13.10 ity of REGIONAL 4.2.7.2.686 [place] as MATERNAL [phone] Med ical & CHILD [address] [place] [address] 2020-01-17 2020-01-17 Outpatient R GIANNA [facility] [id number] Univers 13:45:00 13:45:00 TREVER ity o f [facility] 2020-01-16 2020-01-16 Telephone [facility] 1.2.066.688 [id number] Univers 00:00:00 00:00:00 Trever R WASHERETTE MACHINE OPERATOR 350.1.13.10 ity of REGIONAL 4.2.7.2.686 [place] as MATERNAL [phone] [facility] ical & CHILD [address] [place] [address] 2019-12-30 2019-12-30 Nurse Visit, [facility] Nurse [facility] 1.2 .840.114 [id number] Univers 10:22:21 10:37:21 Visit Aebna Patel WASHERETTE MACHINE OPERATOR 350.1.13.10 ity of REGIONAL 4.2.7.2.686 [place] as MATERNAL [phone] [facility] ical & CHILD [address] [place] [address] 2019-12-30 2019-12-30 Outpatient R [facility] [id number] Univers 10:30:00 10:30:00 ity of [facility] 2019-12-21 2019-12-21 [facility] 1.2.534.450 [id number] Univers 00:00:00 00:00:00 Trever R WASHERETTE MACHINE OPERATOR 350.1.13.10 ity of REGIONAL 4.2.7.2.686 [place] as MATERNAL [id number] [facility] ical & CHILD [address] [place] [address] 2019-12-20 2019-12-20 Office iGanna [facility] 1.2.840.114 [id number] Univers 13:03:11 13:55:34 Visit Trever Bryn WASHERETTE MACHINE OPERATOR 350.1.13.10 ity of [facility] 4.2.7.2.686 [place] as MATERNAL [phone] Med ical & CHILD [address] [place] [address] 2019-12-20 2019-12-20 Outpatient R GIANNA [facility] [id number] Univers 12:45:00 12:45:00 TREVER hammonds o f [facility] 2019-10-24 2019-10-24 Telephone [facility] 1.2.840.114 [id number] Univers 00:00:00 00:00:00 Abena Camarillo WASHERETTE MACHINE OPERATOR 350.1.13.10 it y of REGIONAL 4.2.7.2.686 [place] as MATERNAL [phone] Med ical & CHILD [address] [place] [address] 2019-10-17 2019-10-17 Outpatient R [facility] [id number] Univers 15:00:00 15:00:00 ity [facility] 2019-09-28 2019-09-28 Telephone [facility] 1.2.840.114 [id number] Univers 00:00:00 00:00:00 Abena Camarillo WASHERETTE MACHINE OPERATOR 350.1.13.10 it y of [facility] 4.2.7.2.686 Dwayne as MATERNAL [phone] Med ical & CHILD [address] [place] [address] 2019-09-27 2019-09-27 Office [facility] 1.2.490.818 [id number] Univers 14:03:06 14:59:44 Visit Abena Camarillo WASHERETTE MACHINE OPERATOR 350.1.13.10 it y of [facility] 4.2.7.2.686 [place]way[place] as MATERNAL [phone] Med ical & CHILD [address] [place] [address] 2019-09-27 2019-09-27 Outpatient R JORGE [facility] [id number] Univers 14:00:00 14:00:00 ABENA hammonds [facility] 2019-08-26 2019-08-26 Ged Preparation Teacher Lab, Ang-Rmchp [facility] 1.2.840. 114 [id number] Univers 12:52:43 13:06:01 Visit Alma Solis WASHERETTE MACHINE OPERATOR 350.1.13. 10 ity of [facility] 4.2.7.2.686 [place]way[place] as MATERNAL [id number] [facility] ical & CHILD [address] [place] [address] 2019-08-26 2019-08-26 Outpatient R IRMA [facility] [id number] Univers 13:00:00 13:00:00 ALMA ity o f [facility] 2019-08-19 2019-08-19 Outpatient R [facility] [id number] Univers 13:00:00 13:00:00 ity of [facility] 2019-08-18 2019-08-18 Outpatient R [facility] [id number] Univers 13:00:00 13:00:00 ity of [facility] 2019-08-18 2019-08-18 Emergency X GOLDSMITH, [facility] ERT [id number] Univers 08:24:15 11:52:00 RAVEN ity of [facility] 2019-08-18 2019-08-18 Emergency [facility] 1.2.440.355 [id number] Univers 08:24:15 11:52:00 Raven Og 350.1.13.10 i ty of [place] 4.2.7.2.686 [facility] [phone] [address] 2019-08-18 2019-08-18 Orders Doctor GREGORY 1.2.840.114 [id number] Univers 00:00:00 00:00:00 Only Unassigned, STEPAHNIA 350.1.13.10 ity of [place] [facility] 4.2.7.2.686 Dwayne as [phone] [facility] [address] 2019-07-31 2019-07-31 Telephone COLT Miramontes 1.2.340.713 [id number] Univers 00:00:00 00:00:00 Kevin CAT 350.1.13.10 i ty of [facility] 4.2.7.2.686 [place] as [phone] [facility] [address] 2019-07-28 2019-07-29 Emergency X NICK, [facility] ERT [id number] Univers 18:06:33 00:02:00 SHINTA ity of [facility] 2019-07-28 2019-07-29 Emergency [facility] 1.2.840.114 [id number] Univers 18:06:33 00:02:00 Shinsaturnino Gutierrez 350.1.13.10 i ty of [place] 4.2.7.2.686 [facility] [phone] [address] 2019-07-18 2019-07-18 Telemedici Irma [facility] 1.2.840.114 [id number] Univers 12:55:14 14:20:25 ne Visit Alma C WASHERETTE MACHINE OPERATOR 350.1.13.10 ity of REGIONAL 4.2.7.2.686 [place] as MATERNAL [id number] [facility] & [address] 2019-07-18 2019-07-18 [facility] [id number] Univers 14:00:00 14:00:00 ALMA ity o f [facility] 2019-06-27 2019-06-27 Outpatient R [facility] [id number] Univers 15:30:00 15:30:00 ity of [facility] 2019-06-26 2019-06-26 Emergency X [facility] ERT [id number] Univers 19:06:29 21:03:00 LORY ity [facility] 2019-06-26 2019-06-26 Emergency [facility] 1.2.840.114 [id number] Univers 19:06:29 21:03:00 [facility] 350.1.13.10 [place] [phone] [address] ([facility]) 2019-06-26 2019-06-26 Telephone [facility] 1.2.840.114 [id number] Univers 00:00:00 00:00:00 Alma C WASHERETTE MACHINE OPERATOR 350.1.13.10 ity of [place] 4.2.7.2.686 [place] as MATERNAL [phone] [facility] CHILD [address] [place] [address] 2019-06-24 2019-06-24 Outpatient R [facility] [id number] Univers 09:30:00 09:30:00 ity [facility] 2019-06-23 2019-06-23 Telemedici FlorindaBanner 1.2.840.114 [id number] Univers 12:57:38 15:49:57 ne Visit Alma C WASHERETTE MACHINE OPERATOR 350.1.13.10 ity of [place] 4.2.7.2.686 [place] as MATERNAL [phone] [facility] & CHILD [address] [place] [address] 2019-06-23 2019-06-23 Outpatient R IRMA [facility] [id number] Univers 15:30:00 15:30:00 ALMA pierce [facility] 2019-06-22 2019-06-22 Outpatient R JORGE [facility] [id number] Univers 13:30:00 13:30:00 ABENA hammonds of [facility] 2019-06-22 2019-06-22 Telephone Visit, [facility] 1.2.295.583 [id number] Univers 00:00:00 00:00:00 [facility] WASHERETTE MACHINE OPERATOR 350.1.13.10 ity of Nurse [facility]IONAL 4.2.7.2.686 Dwayne as MATERNAL [phone] Med ical & CHILD [address] [place] [address] 2019-06-22 2019-06-22 Refill Doctor [facility] 1.2.840.114 [id number] Univers 00:00:00 00:00:00 Unassigned, WASHERETTE MACHINE OPERATOR 350.1.13.10 ity of [place] 4.2.7.2.686 Dwayne as MATERNAL [id number] Med ical & CHILD [address] [place] [address] 2019-06-21 2019-06-21 Ged Preparation Teacher Lab, [facility] 1.2.840. 114 [id number] Univers 13:00:32 13:15:32 Visit Alma Solis WASHERETTE MACHINE OPERATOR 350.1.13. 10 ity of [place]ION[place] 4.2.7.2.686 [place] as MATERNAL [phone] Med ical & CHILD [address] [place] [address] 2019-06-21 2019-06-21 Outpatient R IRMA, [facility] [id number] Univers 10:30:00 10:30:00 ALMA pierce [facility] 2019-06-21 2019-06-21 Telephone Jorge [facility] 1.2.840.114 [id number] Univers 00:00:00 00:00:00 Abena Camarillo WASHERETTE MACHINE OPERATOR 350.1.13.10 it y of REGIONAL 4.2.7.2.686 [place]wayne as MATERNAL [id number] Med ical & CHILD [address] [place] [address] 2019-06-20 2019-06-20 [facility]phone [facility] 1.2.840.114 [id number] Univers 00:00:00 00:00:00 Abena N WASHERETTE MACHINE OPERATOR 350.1.13.10 it y of [place] 4.2.7.2.686 [place] as MATERNAL [phone] Med ical & CHILD [address] [place] [address] 2019-06-10 2019-06-10 Telephone [facility] 1.2.840.114 [id number] Univers 00:00:00 00:00:00 Abena N WASHERETTE MACHINE OPERATOR 350.1.13.10 it y of [place] 4.2.7.2.686 [place] as MATERNAL [id number] Med ical & CHILD [address] [place] [address] 2019-05-20 2019-05-20 Telephone [facility] 1.2.840.114 [id number] Univers 00:00:00 00:00:00 Abena N WASHERETTE MACHINE OPERATOR 350.1.13.10 it y of [place] 4.2.7.2.686 [place] as MATERNAL [phone] Med ical & CHILD [address] [place] [address] 2019-05-19 2019-05-19 Telephone [facility] 1.2.840.114 [id number] Univers 00:00:00 00:00:00 Abena N WASHERETTE MACHINE OPERATOR 350.1.13.10 it y of [place]ION[place] 4.2.7.2.686 [place] as MATERNAL [phone] Med ical & CHILD [address] [place] [address] 2019-05-17 2019-05-17 Office [facility] 1.2.909.504 [id number] Univers 13:24:09 13:50:08 Visit Abena N WASHERETTE MACHINE OPERATOR 350.1.13.10 it y of [place] 4.2.7.2.686 [place] as MATERNAL [id number] [facility] ical & CHILD [address] [place] [address] 2019-05-17 2019-05-17 Outpatient Bryn PATEL [facility] [id number] Univers 13:30:00 13:30:00 ABENA hammonds of [facility] 2019-05-06 2019-05-06 Outpatient Bryn KATZ [facility] [id number] Univers 08:15:00 08:15:00 TREVER pierce [facility] 2019-04-20 2019-04-20 Emergency Kwaku, Peace [facility] 1.2.840.114 [id number] Univers 11:02:10 14:18:00 Yulia [place] 350.1.13.10 i [place] [phone] [facility] [address] 2019-03-29 2019-03-29 Telephone Gianna NYSONJA 1.2.028.161 [id number] Univers 00:00:00 00:00:00 Nimaa R WASHERETTE MACHINE OPERATOR 350.1.13.10 ity of [facility] 4.2.7.2.686 Dwayne as MATERNAL [id number] [facility] & CHILD [address] [place] [address] 2019-03-22 2019-03-22 Telephone Gianna [facility] 1.2.917.833 [id number] Univers 00:00:00 00:00:00 Trever R WASHERETTE MACHINE OPERATOR 350.1.13.10 ity of [facility] 4.2.7.2.686 Dwayne as MATERNAL [id number] [facility] & CHILD [address] [place] [address] 2019-03-21 2019-03-21 Office Gianna [facility] 1.2.840.[id number] [place] [address] 15:39:38 16:25:05 Visit Trever R WASHERETTE MACHINE OPERATOR 350.1.13.10 ity of [facility] 4.2.7.2.686 Dwayne as MATERNAL [id number] [facility] & [address] Results Test Description Test Time Test Comments Results Result Comments Source POCT URINALYSIS W SPECIFIC GRAVITY 2023-01-01 19:56:00 Test Item Value Reference Range Interpretation Comme nts POCT U SP GRAV (test code = 3255) NA 1.005-1.025 POCT PH U (test code = 3254) 8 mg/dl 5-8 POCT U LEUK EST (test code = 3263) 1+ Negative - Negative POCT U NIT (test code = 3262) Pos Negative - Negative POCT U PROT (test code = 3259) Trace Negative - Negative POCT U GLU (test code = 3256) Neg Negative - Negative POCT U KETONE (test code = 3258) Neg Negative - Negative POCT U UROBILI (test code = 3260) NA 0.2-1 POCT U BILI (test code = 3261) NA Negative - Negative POCT U BLD (test code = 3257) Neg Negative - Negative POCT U COLOR (test code = 3266) POCT U APPEAR (test code = 3267) Lab Interpretation (test code = 54775-3) Abnormal [facility] URINALYSIS W SPECIFIC [id number] 18:55:00 Test Item Value Reference Range Interpretation Comments [...] U APPEAR (test code = 3267) . [facility] URINALYSIS W SPECIFIC [id number] 19:29:00 Test Item Value Reference Range Interpretation Comments [...] 3258) NEG Negative - Negative POCT U UROBILI (test code = 3260) . 0.2-1 POCT U BILI (test code = 3261) . Negative - Negative POCT U BLD (test code = 3257) NEG Negative - Negative POCT U COLOR (test code = 3266) . POCT U APPEAR (test code = 3267) . [facility] URINALYSIS W SPECIFIC [id number] 19:55:00 Test Item Value Reference Range Interpretation Comments POCT U SP GRAV (test code = * 1.005-1.025 3255) POCT PH U (test code = 3254) * 5-8 POCT U LEUK EST (test code = * Negative - Negative 3263) POCT U NIT (test code = 3262) * Negative - Negative POCT U PROT (test code = 3259) trace Negative - Negative POCT U GLU (test code = 3256) negative Negative - Negative POCT U KETONE (test code = 3258) * Negative - Negative POCT U UROBILI (test code = * 0.2-1 3260) POCT U BILI (test code = 3261) * Negative - Negative POCT U BLD (test code = 3257) * Negative - Negative POCT U COLOR (test code = 3266) * POCT U APPEAR (test code = 3267) [facility] URINALYSIS W SPECIFIC [id number] 13:18:00 Test Item Value Reference Range Interpretation Comments POCT U SP GRAV (test code = * 1.005-1.025 3255) POCT PH U (test code = 3254) 7 mg/dl 5-8 POCT U LEUK EST (test code = trace Negative - Negative 3263) POCT U NIT [...] U APPEAR (test code = 3267) clear [facility] RFLX MICR CULT IF [id number] 21:28:00 Test Item Value Reference Range Interpretation Comments UA COLOR (test code = YELLOW YELLOW COLU) UA APPEARANCE (test HAZY CLEAR code = APPU) UA GLUCOSE DIPSTICK NEGATIVE NEGATIVE (test code = DGLUU) UA BILIRUBIN DIPSTICK NEGATIVE NEGATIVE (test code = BILU) UA KETONE DIPSTICK NEGATIVE NEGATIVE (test code = KETU) UA SPECIFIC GRAVITY 1.020 1.001-1.035 N (test code = SGU) UA BLOOD DIPSTICK NEG NEGATIVE (test code = JORGE) UA PH DIPSTICK (test 6.0 5-9 code = PARISH) UA PROTEIN DIPSTICK NEGATIVE NEGATIVE (test code = PROU) UA UROBILINIOGEN 0.2 EU/dL See_Comment [Automated DIPSTICK (test code = messag e] The URO) system which generated this result transmit con reference range : <=1.0. The reference range was not used to interpret this result as normal/abnormal . UA NITRITE DIPSTICK NEGATIVE NEGATIVE (test code = PONCHO) UA LEUKOCYTE ESTERASE TRACE NEGATIVE A DIPSTICK (test code = LEUU) UA WBC (test code = 6-10 #/hpf NONE SEEN A WBCU) UA RBC (test code = 0-2 #/hpf NONE SEEN RBCU) UA EPITHELIAL CELLS MODERATE #/HPF RARE-FEW A (test code = EPIU) UA BACTERIA (test RARE /HPF RARE-FEW code = BACU) UA MUCUS (test code = 1+ NONE SEEN MUCU) UA AMORPHOUS SEDIMENT RARE (test code = AMORU) Indication for culture: Suprapubic PainSpecimen Description: CLEAN CATCHCBC W/AUTO [id number] 21:13:00 Test Item Value Reference Range Interpretation [...] NORMAL NORMAL code = PLTMR) COMPREHENSIVE METABOLIC [id number] 21:04:00 Test Item Value Reference Range Interpretation [...] is <18 years. COVID 19 Asymptomatic IH [id number] 20:56:00 Test Item Value Reference Range Interpretation [...] cleared or approved; th e test hasbeen authori zed by FDA under an Emerge ncy Use [...] of Accreditation. This test is only authori zed for the duration of thedeclaration that circumstances e xist justifying theauthorizatio n of emergency use o f in vitro diagnostic test sfor detection and/o r diagnosis of CO VID-19 under Acqntwd06 4(b)(1) of the Act, 21 U.S .C. 360bbb-3(b)(1), unless theauthorizatio n is terminated or r evoked sooner. D-DIMER [id number] 20:43:00 Test Item Value Reference Range Interpretation Comments D-DIMER QUANT 335 ng/mLFEU <519 PLEASE NOTE NE W REFERENCE (test code = RANGE AND UNITS August 2022 DDIMER) D-Dimer results are reported in ng/ mL. These unitscorrespond to ng/mL Fibrinogen Equi valent Units (FEU). Th eD-Dimer cut-off value i s the same [...] with complicati ons. POCT URINALYSIS W SPECIFIC [id number] 14:09:00 Test Item Value Reference Range Interpretation [...] U APPEAR (test code = 3267) . [facility] URINALYSIS W SPECIFIC [id number] 20:42:00 Test Item Value Reference Range Interpretation [...] U APPEAR (test code = 3267) . [facility] URINALYSIS W SPECIFIC [id number] 20:46:00 Test Item Value Reference Range Interpretation [...] U APPEAR (test code = 3267) . [facility] (NA, K, CL, CO2, GLUCOSE, BUN, CREATININE, CA)2022-07-15 20:01:56 Test Item Value Reference Range Interpretation Comments NA (test code = 137 mmol/L 135-145 3301298949) K (test code = 4.1 mmol/L 3.5-5.0 8644651401) CL (test code = 104 mmol/L 98-108 7700611769) CO2 TOTAL (test code = 21 mmol/L 23-31 L 0898551262) AGAP (test code = 12 2-16 6238315475) BUN (test code = 4 mg/dL 7-23 L 7978227108) GLUCOSE (test code = 84 mg/dL 70-110 8617064059) CREATININE (test code = 0.43 mg/dL 0.50-1.04 L 9099594124) CALCIUM (test code = 9.4 mg/dL 8.6-10.6 6623181114) eGFR (test code = 178.9 mL/min/1.73m2 6276728024) MARCELLE (test code = MARCELLE) Association of [...] tests). Lab Interpretation Abnormal (test code = 52295-3) [facility] WITH [id number] 19:50:53 Test Item Value Reference Range Interpretation Comments WBC (test code = 9.07 See_Comment [Automated 3890-2) message] The sy stem which generated this result transmitted reference range : 4.30 - 11.10 10*3/?L. The reference range was not used to interpret this result as normal/abnormal . RBC (test code = 4.88 See_Comment [Automated 739-8) message] The sy stem which generated this [...] RDW-SD (test code = 43.8 fL 39.0-49.9 66193-2) RDW-CV (test code = 14.8 % 12.0-15.5 788-0) PLT (test code = 302 See_Comment [Automated 777-3) message] The sy stem which generated this result transmitted reference range : 166 - 358 10*3/ ?L. The reference r david was not used to interpret this result as normal/abnormal . MPV (test code = 9.7 fL 9.5-12.9 69718-4) NRBC/100 WBC (test 0.0 See_Comment [Automat ed code = [id number]) message] The system which generated this result transmitted reference range : 0.0 - 10.0 /100 WBCs. The refer ence range was not u sed to interpret th is result as normal/abnormal . NRBC x10^3 (test code See_Comment [Auto mated = [id number]) message] The s ystem which generated this result transmitted reference range : 10*3/?L. The reference range was not used to interpret this result as normal/abnormal . GRAN MAT (NEUT) % 62.8 % (test code = 770-8) IMM GRAN % (test code 1.00 % = [id number]) LYMPH % (test code = 28.6 % 736-9) MONO % (test code = 6.2 % 5905-5) EOS % (test code = 1.2 % 713-8) BASO % (test code = 0.2 % 706-2) GRAN MAT x10^3(ANC) 5.70 10*3/uL 1.88-7.09 (test code = [id number]) IMM GRAN x10^3 (test 0.09 10*3/uL 0.00-0.06 H code = [id number]) LYMPH x10^3 (test code 2.59 10*3/uL 1.32-3.29 = 731-0) MONO x10^3 (test code 0.56 10*3/uL 0.33-0.92 = 742-7) EOS x10^3 (test code = 0.11 10*3/uL 0.03-0.39 711-2) BASO x10^3 (test code 0.01-0.07 = 704-7) Lab Interpretation Abnormal (test code = 03425-1) [facility] [id number] 20:59:00 Test Item Value Reference Range Interpretation [...] POCT U APPEAR (test code = 3267) [place] [facility] URINALYSIS W SPECIFIC [id number] 20:59:00 Test Item Value Reference Range Interpretation [...] POCT U APPEAR (test code = 3267) [facility] URINALYSIS W SPECIFIC [id number] 20:59:00 Test Item Value Reference Range Interpretation [...] POCT U APPEAR (test code = 3267) [facility] URINALYSIS W/O SPECIFIC [id number] 19:18:00 Test Item Value Reference Range Interpretation [...] code = 3257) NEG Negative - Negative [facility] [id number] 19:17:00 Test Item Value Reference Range Interpretation Comments POCT PREG (test code = 1605) Positive On board controls acceptable with C Yes Line (test code = 3574) POCT PREG LOT # (test code = 3575) POCT PREG TEST DATE (test code = 3576) [facility] [id number] 05:04:00 Test Item Value Reference Range Interpretation Comments POCT PREG (test code = 1605) negative On board controls acceptable with present C Line (test code = 3574) POCT PREG LOT # (test code = 3575) [id number] POCT PREG TEST DATE (test 2023-08-07 code = 3576) Lab Interpretation (test code = Normal 16457-6) [facility]. METABOLIC PANEL (91643)2022-04-22 04:55:23 Test Item Value Reference Range Interpretation Comments NA (test code = 135 mmol/L 135-145 9965650721) K (test code = 4.0 mmol/L 3.5-5.0 3473664612) CL (test code = 105 mmol/L 98-108 9802748371) CO2 TOTAL (test code = 24 mmol/L - 7539838261) AGAP (test code = 6 2-16 5439053600) BUN (test code = 12 mg/dL 7-23 0354844516) GLUCOSE (test code = 117 mg/dL 70-110 H 5695250517) CREATININE (test code = 0.50 mg/dL 0.50-1.04 7673870139) TOTAL BILI (test code = 0.5 mg/dL 0.1-1.5 0941903280) CALCIUM (test code = 8.6 mg/dL 8.6-10.6 4493695451) T PROTEIN (test code = 6.3 g/dL 6.3-8.2 2857353817) ALBUMIN (test code = 4.0 g/dL 3.5-5.0 0707372349) ALK PHOS (test code = 71 U/L 34-122 7361034838) ALTv (test code = 25 U/L 5-35 1742-6) AST(SGOT) (test code = 30 U/L 13-40 9268745577) eGFR (test code = 150.3 mL/min/1.73m2 7230857357) MARCELLE (test code = MARCELLE) Association of [...] tests). Lab Interpretation Abnormal (test code = 16705-3) [facility] WITH [id number] 04:43:57 Test Item Value Reference Range Interpretation [...] RDW-SD (test code = 44.5 fL 39.0-49.9 28515-5) RDW-CV (test code = 15.0 % 12.0-15.5 788-0) PLT (test code = 270 See_Comment [Automated 777-3) message] The sy stem which generated this result transmitted reference range : 166 - 358 10*3/ ?L. The reference r david was not used to interpret this result as normal/abnormal . MPV (test code = 10.5 fL 9.5-12.9 98878-5) NRBC/100 WBC (test 0.0 See_Comment [Automat ed code = 9226057180) message] The system which generated this result transmitted reference range : 0.0 - 10.0 /100 WBCs. The refer ence range was not u sed to interpret th is result as normal/abnormal . NRBC x10^3 (test code See_Comment [Auto mated = 7687079566) message] The s ystem which generated this result transmitted reference range : 10*3/?L. The reference range was not used to interpret this result as normal/abnormal . GRAN MAT (NEUT) % 54.9 % (test code = 770-8) IMM GRAN % (test code 0.60 % = 6043306299) LYMPH % (test code = 35.8 % 736-9) MONO % (test code = 6.5 % 5905-5) EOS % (test code = 1.7 % 713-8) BASO % (test code = 0.5 % 706-2) GRAN MAT x10^3(ANC) 4.86 10*3/uL 1.88-7.09 (test code = 0958339927) IMM GRAN x10^3 (test 0.05 10*3/uL 0.00-0.06 code = 7335112993) LYMPH x10^3 (test code 3.16 10*3/uL 1.32-3.29 = 731-0) MONO x10^3 (test code 0.57 10*3/uL 0.33-0.92 = 742-7) EOS x10^3 (test code = 0.15 10*3/uL 0.03-0.39 711-2) BASO x10^3 (test code 0.04 10*3/uL 0.01-0.07 = 704-7) Lab Interpretation Abnormal (test code = 23323-5) [facility] [id number] 20:36:00 Test Item Value Reference Range Interpretation Comments ABO & RH (test code O Negative Performe d at [facility] = 20) Laboratory Serv [facility] Blood Bank[address] [place], [place] [address]Toll Free: [phone] A No. [id number] IAT (test code = Positive Performed a t [facility] 1185) Laboratory [facility] Blood Bank[address] [place], [place] [address]Toll Free: [phone] A No. [id number] [facility] CenterMAGNESIUM2022-12-11 19:33:27 Test Item Value Reference Range Interpretation Comments MAGNESIUM (test code = 0177426123) 2.0 mg/dL 1.7-2.4 Lab Interpretation (test code = Normal 41410-3) [facility] CenterTROP[facility]IN [id number] 19:16:05 Test Item Value Reference Interpretation Comments Range TROPONIN I (test 0.001 ng/mL See_Comment [Automated code = 8174532977) message] The system which generated this result [...] biotin. Lab Interpretation Normal (test code = 01832-7) [facility] CenterN-TERMINAL [id number] 19:13:04 Test Item Value Reference Range Interpretation Comments NT-proBNP (test code 189 pg/mL See_Comment H [Autom ated = 4358432418) message] The system which generated this result transmitted reference range : <=125. The reference range was not used to interpret this result as normal/abnormal . MARCELLE (test code = MARCELLE) Biotin has been reported to cause a negative bias, interpret results relative to patient's use of biotin. Lab Interpretation Abnormal (test code = 10815-6) [facility] CenterCOMP. METABOLIC PANEL (07657)2022-02-16 19:04:06 Test Item Value Reference Range Interpretation Comments NA (test code = 139 mmol/L 135-145 0528340137) K (test code = 4.0 mmol/L 3.5-5.0 7714171225) CL (test code = 110 mmol/L 98-108 H 3866564426) CO2 TOTAL (test code = 24 mmol/L 23-31 0622200879) AGAP (test code = 2-16 3563866831) BUN (test code = 10 mg/dL 7-23 1752714310) GLUCOSE (test code = 78 mg/dL 70-110 0057645252) CREATININE (test code = 0.49 mg/dL 0.50-1.04 L 3302844323) TOTAL BILI (test code = 0.3 mg/dL 0.1-1.8 3201701227) CALCIUM (test code = 8.7 mg/dL 8.6-10.6 7199170876) T PROTEIN (test code = 5.5 g/dL 6.3-8.2 L 7670947339) ALBUMIN (test code = 3.2 g/dL 3.5-5.0 L 0368949780) ALK PHOS (test code = 126 U/L 34-122 H 4202464960) ALTv (test code = 21 U/L 5-35 1742-6) AST(SGOT) (test code = 30 U/L 13-40 0824422553) eGFR (test code = mL/min/1.73m2 8004701460) MARCELLE (test code = MARCELLE) Association of [...] tests). Lab Interpretation Abnormal (test code = 57319-9) [facility] CenterACTIVATED PARTIAL THRMPLAS [id number] 19:03:06 Test Item Value Reference Range Interpretation Comments APTT Patient (test See_Comment [Automat ed code = 3173-2) message] The system which generated this result transmitted reference range : 23 - 38 Seconds . The reference range was not used to interpr et this result as normal/abnormal . MARCELLE (test code = MARCELLE) The [facility] patient population mean normal value for aPTT is 30 seconds. Lab Interpretation Normal (test code = 07598-5) [facility] CenterPROTHROMBIN TIME / [id number] 19:01:04 Test Item Value Reference Range Interpretation [...] tions. Lab Interpretation (test Normal code = 60169-1) [facility] CenterCBC WITH [id number] 18:49:05 Test Item Value Reference Range Interpretation Comments WBC (test code = See_Comment [Automated 90-2) message] The sy stem which generated this result transmitted reference range : 4.30 - 11.10 10*3/?L. The reference range was not used to interpret this result as normal/abnormal . RBC (test code = See_Comment L [Automated 129-8) message] The sy stem which generated this [...] RDW-SD (test code = 45.1 fL 39.0-49.9 53598-8) RDW-CV (test code = 14.1 % 12.0-15.5 788-0) PLT (test code = See_Comment [Automated 777-3) message] The sy stem which generated this result transmitted reference range : 166 - 358 10*3/ ?L. The reference r david was not used to interpret this result as normal/abnormal . MPV (test code = 10.4 fL 9.5-12.9 84207-0) NRBC/100 WBC (test See_Comment [Automat ed code = 6833915813) message] The system which generated this result transmitted reference range : 0.0 - 10.0 /100 WBCs. The refer ence range was not u sed to interpret th is result as normal/abnormal . NRBC x10^3 (test code See_Comment [Auto mated = 4810123294) message] The s ystem which generated this result transmitted reference range : 10*3/?L. The reference range was not used to interpret this result as normal/abnormal . GRAN MAT (NEUT) % 72.7 % (test code = 770-8) IMM GRAN % (test code 1.30 % = 2666997298) LYMPH % (test code = 16.8 % 736-9) MONO % (test code = 6.7 % 5905-5) EOS % (test code = 2.3 % 713-8) BASO % (test code = 0.2 % 706-2) GRAN MAT x10^3(ANC) 6.67 10*3/uL 1.88-7.09 (test code = 4348239478) IMM GRAN x10^3 (test 0.12 10*3/uL 0.00-0.06 H code = 8171467730) LYMPH x10^3 (test code 1.54 10*3/uL 1.32-3.29 = 731-0) MONO x10^3 (test code 0.61 10*3/uL 0.33-0.92 = 742-7) EOS x10^3 (test code = 0.21 10*3/uL 0.03-0.39 711-2) BASO x10^3 (test code 0.01-0.07 = 704-7) Lab Interpretation Abnormal (test code = 78551-7) [facility] CenterFETAL MATERNAL HEMO [id number] 12:29:12 Test Item Value Reference Range Interpretation Comments SCREEN (test Negative Performed at [facility] code = 846) Laboratory Serv [facility] Blood [address] [place], [place] [address]Qyay Free: [phone] A No. [id number] RHIG REQUIRED? 1 Syringe baby rh posPe rformed at (test code = 1747) [facility] Labo ratory [facility] Blood Ban k[address] [facility] s [address]Bfev Free: [phone] A No. [id number] [facility] CenterRHO (D) IMMUNE [id number] 19:43:42 Test Item Value Reference Range Interpretation Comments RHIG CANDIDATE? (test Yes- see A Patien t is a code = 5055) comment candidate for RhIg- Patient i s Rh Negative and baby is Rh Positive.Perfor me d at [facility] Laboratory Services [facility] Blood [address] [facility] s [address]Joge Free: [phone] A No. [id number] Lab Interpretation Abnormal (test code = 72573-5) [facility] CenterARTERIAL CORD [id number] 17:18:47 Test Item Value Reference Range Interpretation Comments BASE EXCESS, CORD mEq/L QUES (test code = 9018359471) AC PH, CORD (BEAKER) 7.18-7.38 (test code = 6453485752) PC02, CORD (test code See_Comment [Auto mated message] The = 4356554825) system which g enerated this result transmit con reference range : 32 - 66 mmHg. The refer ence range was not used to interpret this result as normal/abnormal . PO2, CORD (test code See_Comment [Autom ated message] The = 8805973609) system which g enerated this result transmit con reference range : 10 - 30 mmHg. The refer ence range was not used to interpret this result as normal/abnormal . BICARBONATE, CORD See_Comment [Automate d message] The (test code = system which ge nerated this 5627326018) result transmit con reference range : 17 - 27 mEq/L. The refe rence range was not used to interpret this result as normal/abnormal . [facility] CORD [id number] 17:17:10 Test Item Value Reference Range Interpretation Comments VENOUS BASE EXCESS, mEq/L CORD (test code = 3119477344) VENOUS PH, CORD (test 7.25-7.45 code = 8354398534) VENOUS PC02, CORD See_Comment [Automate d message] The (test code = system which ge nerated 4326699262) this result tra nsmitted reference range : 27 - 49 mmHg. The refer ence range was not used to interpret this result as normal/abnormal . VENOUS PO2, CORD (test See_Comment [Aut omated message] The code = 0888166689) system wh ich generated this result tra nsmitted reference range : 17 - 41 mmHg. The refer ence range was not used to interpret this result as normal/abnormal . VENOUS BICARBONATE, See_Comment QUES [Au tomated message] CORD (test code = The system which generated 2573667776) this result tra nsmitted reference range : 12 - 29 mEq/L. The refe rence range was not used to interpret this result as normal/abnormal . [facility] ONLY - SYPHILIS IGG/[id number] 17:00:56 Test Item Value Reference Range Interpretation Comments Syphilis IgG/IgM (test Non-reactive Non-reactive code = 35723-1) MARCELLE (test code = MARCELLE) Non-reactive - No serologic evidence of T. pallidum infection. Cannot exclude incubating or early syphilis. Submit a second specimen in 2-4 weeks if syphilis is clinically suspected. Equivocal - Further testing to follow. Reactive - Further testing to follow. Lab Interpretation (test Normal code = 15612-2) [facility] 03/10 AG-AB WITH [id number] 02:53:04 Test Item Value Reference Range Interpretation Comments HIV Negative Negative Semi-quantitative (test code = 44343-6) MARCELLE (test code = Non-reactive for HIV-1 MARCELLE) antigen and HIV-1/HIV-2 antibodies. ?No laboratory evidence of HIV infection. ?Repeat in 2-4 weeks if acute HIV infection is suspected. [facility] - ONCE [id number] 01:21:03 Test Item Value Reference Range Interpretation Comments ABO & RH (test code O NEGATIVE Performe d at [facility] = 20) Laboratory Serv [facility] Blood Bank[address] [facility] s [address]Mqwq Free: [phone] A No. [id number] IAT (test code = Positive Performed a t [facility] 1185) Laboratory Serv [facility] Blood [facility]3 [address] [facility] s [address]Nbpw Free: [phone] A No. [id number] [facility] CenterANTI-D R/O [id number] 01:21:03 Test Item Value Reference Range Interpretation Comments ANTIBODY (test Anti-D Probable RHIG given on code = 683) RhIg 01/02/22Perform ed at [facility] Blood [address] [facility] s [address]Lhmm Free: [phone] A No. [id number] [facility] CenterHepatitis B Surface [id number] 00:41:53 Test Item Value Reference Range Interpretation Comments HBsAg Semi-Quantitative (test code = Negative Negative 5195-3) [facility] CenterCBC with [id number] 23:41:21 Test Item Value Reference Range Interpretation Comments WBC (test code = See_Comment [Automated 2090-2) message] The sy stem which generated this result transmitted reference range : 4.30 - 11.10 10*3/?L. The reference range was not used to interpret this result as normal/abnormal . RBC (test code = See_Comment [Automated 889-8) message] The sy stem which generated this [...] RDW-SD (test code = 43.6 fL 39.0-49.9 15222-1) RDW-CV (test code = 14.1 % 12.0-15.5 788-0) PLT (test code = See_Comment [Automated 777-3) message] The sy stem which generated this result transmitted reference range : 166 - 358 10*3/ ?L. The reference r david was not used to interpret this result as normal/abnormal . MPV (test code = 10.8 fL 9.5-12.9 82956-8) NRBC/100 WBC (test See_Comment [Automat ed code = 2017484320) message] The system which generated this result transmitted reference range : 0.0 - 10.0 /100 WBCs. The refer ence range was not u sed to interpret th is result as normal/abnormal . NRBC x10^3 (test code See_Comment [Auto mated = 2529886050) message] The s ystem which generated this result transmitted reference range : 10*3/?L. The reference range was not used to interpret this result as normal/abnormal . GRAN MAT (NEUT) % 64.7 % (test code = 770-8) IMM GRAN % (test code 1.20 % = 5220809241) LYMPH % (test code = 25.1 % 736-9) MONO % (test code = 7.4 % 5905-5) EOS % (test code = 1.3 % 713-8) BASO % (test code = 0.3 % 706-2) GRAN MAT x10^3(ANC) 6.10 10*3/uL 1.88-7.09 (test code = 1803774499) IMM GRAN x10^3 (test 0.11 10*3/uL 0.00-0.06 H code = 6395078202) LYMPH x10^3 (test code 2.36 10*3/uL 1.32-3.29 = 731-0) MONO x10^3 (test code 0.70 10*3/uL 0.33-0.92 = 742-7) EOS x10^3 (test code = 0.12 10*3/uL 0.03-0.39 711-2) BASO x10^3 (test code 0.03 10*3/uL 0.01-0.07 = 704-7) Lab Interpretation Abnormal (test code = 57929-1) [facility] URINALYSIS W SPECIFIC [id number] 20:06:00 Test Item Value Reference Range Interpretation [...] POCT U APPEAR (test code = 3267) [facility] URINALYSIS W SPECIFIC [id number] 22:20:00 Test Item Value Reference Range Interpretation [...] U APPEAR (test code = 3267) . [facility]Type [facility] - ONCE Iodhupr2817-06-02 23:17:31 Test Item Value Reference Range Interpretation Comments ABO & RH (test code O Negative Performe d at [facility] = 20) Laboratory Serv [facility] Blood Bank[address] [place], [place] [address]Toll Free: [phone] A No. [id number] IAT (test code = Positive Performed a t [facility] 1185) Laboratory Serv [facility] Blood Bank[address] [place], [place] [address]Toll Free: [phone] A No. [id number] [facility] CenterCBC WITH [id number] 05:45:31 Test Item Value Reference Range Interpretation Comments WBC (test code = See_Comment [Automated 5290-2) message] The sy stem which generated this result transmitted reference range : 4.30 - 11.10 10*3/?L. The reference range was not used to interpret this result as normal/abnormal . RBC (test code = See_Comment [Automated 469-8) message] The sy stem which generated this [...] RDW-SD (test code = 43.4 fL 39.0-49.9 37724-2) RDW-CV (test code = 13.9 % 12.0-15.5 788-0) PLT (test code = See_Comment [Automated 777-3) message] The sy stem which generated this result transmitted reference range : 166 - 358 10*3/ ?L. The reference r david was not used to interpret this result as normal/abnormal . MPV (test code = 11.2 fL 9.5-12.9 72074-0) NRBC/100 WBC (test See_Comment [Automat ed code = 7422401229) message] The system which generated this result transmitted reference range : 0.0 - 10.0 /100 WBCs. The refer ence range was not u sed to interpret th is result as normal/abnormal . NRBC x10^3 (test code See_Comment [Auto mated = 3685437704) message] The s ystem which generated this result transmitted reference range : 10*3/?L. The reference range was not used to interpret this result as normal/abnormal . GRAN MAT (NEUT) % 67.3 % (test code = 770-8) IMM GRAN % (test code 1.00 % = 2013098579) LYMPH % (test code = 23.3 % 736-9) MONO % (test code = 7.1 % 5905-5) EOS % (test code = 1.0 % 713-8) BASO % (test code = 0.3 % 706-2) GRAN MAT x10^3(ANC) 5.85 10*3/uL 1.88-7.09 (test code = 4171864248) IMM GRAN x10^3 (test 0.09 10*3/uL 0.00-0.06 H code = 2657495211) LYMPH x10^3 (test code 2.03 10*3/uL 1.32-3.29 = 731-0) MONO x10^3 (test code 0.62 10*3/uL 0.33-0.92 = 742-7) EOS x10^3 (test code = 0.09 10*3/uL 0.03-0.39 711-2) BASO x10^3 (test code 0.03 10*3/uL 0.01-0.07 = 704-7) Lab Interpretation Abnormal (test code = 46087-3) [facility] WITH [id number] 05:45:31 Test Item Value Reference Range Interpretation [...] RDW-SD (test code = 43.4 fL 39.0-49.9 63603-9) RDW-CV (test code = 13.9 % 12.0-15.5 788-0) PLT (test code = See_Comment [Automated 777-3) message] The sy stem which generated this result transmitted reference range : 166 - 358 10*3/ ?L. The reference r david was not used to interpret this result as normal/abnormal . MPV (test code = 11.2 fL 9.5-12.9 20821-4) NRBC/100 WBC (test See_Comment [Automat ed code = 1714394387) message] The system which generated this result transmitted reference range : 0.0 - 10.0 /100 WBCs. The refer ence range was not u sed to interpret th is result as normal/abnormal . NRBC x10^3 (test code See_Comment [Auto mated = 0461467458) message] The s ystem which generated this result transmitted reference range : 10*3/?L. The reference range was not used to interpret this result as normal/abnormal . GRAN MAT (NEUT) % 67.3 % (test code = 770-8) IMM GRAN % (test code 1.00 % = 5496825049) LYMPH % (test code = 23.3 % 736-9) MONO % (test code = 7.1 % 5905-5) EOS % (test code = 1.0 % 713-8) BASO % (test code = 0.3 % 706-2) GRAN MAT x10^3(ANC) 5.85 10*3/uL 1.88-7.09 (test code = 6137388151) IMM GRAN x10^3 (test 0.09 10*3/uL 0.00-0.06 H code = 1969385300) LYMPH x10^3 (test code 2.03 10*3/uL 1.32-3.29 = 731-0) MONO x10^3 (test code 0.62 10*3/uL 0.33-0.92 = 742-7) EOS x10^3 (test code = 0.09 10*3/uL 0.03-0.39 711-2) BASO x10^3 (test code 0.03 10*3/uL 0.01-0.07 = 704-7) Lab Interpretation Abnormal (test code = 02897-0) [facility] URINALYSIS W SPECIFIC [id number] 20:37:00 Test Item Value Reference Range Interpretation [...] U APPEAR (test code = 3267) clear [facility] URINALYSIS W SPECIFIC [id number] 20:37:00 Test Item Value Reference Range Interpretation [...] U APPEAR (test code = 3267) clear [facility] URINALYSIS W SPECIFIC [id number] 20:37:00 Test Item Value Reference Range Interpretation [...] U APPEAR (test code = 3267) clear [facility] URINALYSIS W SPECIFIC [id number] 19:00:00 Test Item Value Reference Range Interpretation [...] U APPEAR (test code = 3267) . [facility] URINALYSIS W SPECIFIC [id number] 21:06:00 Test Item Value Reference Range Interpretation [...] U APPEAR (test code = 3267) clear [facility] URINALYSIS W SPECIFIC [id number] 16:34:00 Test Item Value Reference Range Interpretation [...] U APPEAR (test code = 3267) clear [facility] URINALYSIS W SPECIFIC [id number] 17:00:00 Test Item Value Reference Range Interpretation [...] U APPEAR (test code = 3267) cloudy [facility] URINALYSIS W SPECIFIC [id number] 18:51:00 Test Item Value Reference Range Interpretation [...] 3267) Lab Interpretation (test code = Abnormal 49624-0) [facility] URINALYSIS W SPECIFIC [id number] 19:16:00 Test Item Value Reference Range Interpretation [...] POCT U APPEAR (test code = 3267) [facility] URINALYSIS W SPECIFIC [id number] 18:26:00 Test Item Value Reference Range Interpretation Comments POCT U SP GRAV (test code = . 1.005-1.025 5) POCT PH U (test code = 3254) [...] clear Lab Interpretation (test code = Normal 14880-1) [facility] URINALYSIS W SPECIFIC [id number] 20:47:00 Test Item Value Reference Range Interpretation [...] POCT U APPEAR (test code = 3267) [facility] URINALYSIS W SPECIFIC [id number] 19:47:00 Test Item Value Reference Range Interpretation [...] POCT U APPEAR (test code = 3267) [facility] URINALYSIS W SPECIFIC [id number] 19:47:00 Test Item Value Reference Range Interpretation [...] POCT U APPEAR (test code = 3267) [facility] URINALYSIS W SPECIFIC [id number] 13:14:00 Test Item Value Reference Range Interpretation [...] U APPEAR (test code = 3267) . [facility] URINALYSIS W SPECIFIC [id number] 13:14:00 Test Item Value Reference Range Interpretation [...] U APPEAR (test code = 3267) . [facility] URINALYSIS W SPECIFIC [id number] 13:14:00 Test Item Value Reference Range Interpretation [...] U APPEAR (test code = 3267) . [facility] URINALYSIS W SPECIFIC [id number] 13:14:00 Test Item Value Reference Range Interpretation [...] U APPEAR (test code = 3267) . [facility] URINALYSIS W SPECIFIC [id number] 13:14:00 Test Item Value Reference Range Interpretation [...] U APPEAR (test code = 3267) . [facility] URINALYSIS W SPECIFIC [id number] 13:14:00 Test Item Value Reference Range Interpretation [...] U APPEAR (test code = 3267) . [facility] URINALYSIS W SPECIFIC [id number] 13:14:00 Test Item Value Reference Range Interpretation [...] U APPEAR (test code = 3267) . [facility] URINALYSIS W SPECIFIC [id number] 13:14:00 Test Item Value Reference Range Interpretation [...] U APPEAR (test code = 3267) . [facility] URINALYSIS W SPECIFIC [id number] 13:14:00 Test Item Value Reference Range Interpretation [...] U APPEAR (test code = 3267) . [facility] [id number] 18:22:00 Test Item Value Reference Range Interpretation Comments LITHIUM LEVEL (BEAKER) 0.8 mmol/L 0.8-1.2 (test code = 630) SCAN RESULT (test code = See Scanned Report [id number]) ID, [id number] 14:13:01Reason for exam:->abnormal imaging [facility] : 1995 Sex: FFluoroscopic unit utilized for a procedure performed in the OR. No interpretation was requested. Refer to the operative report for findings. Refer to PACS for patient radiation dose information.COMPREHENSIVE METABOLIC [id number] 06:43:00 Test Item Value Reference Range Interpretation [...] S NOT APPLICABLE FOR DIALYSIS PATIEN TS. Sewing Teacher ID - MADISON [facility] [place] (HEMOGRAM ONLY)2020-09-24 06:04:00 Test [...] (BEAKER) (test code = 413) COMPREHENSIVE METABOLIC [id number] 07:06:00 Test Item Value Reference Range Interpretation [...] S NOT APPLICABLE FOR DIALYSIS PATIEN TS. Sewing Teacher ID - PIAYA [facility] (HEMOGRAM ONLY)2020-09-23 06:47:00 [...] (BEAKER) (test code = 413) COMPREHENSIVE METABOLIC [id number] 08:27:00 Test Item Value Reference Range Interpretation [...] S NOT APPLICABLE FOR DIALYSIS PATIEN TS. Sewing Teacher ID - MADISON [id number] 08:27:00 Test Item Value Reference Range Interpretation Comments MAGNESIUM (BEAKER) (test code = 2.4 mg/dL 1.6-2.6 627) Sewing Teacher ID - MADISON MPROTHROMBIN [id number] 07:59:00 Test Item Value Reference Range Interpretation Comments PROTIME (BEAKER) 13.0 seconds 11.9-14.2 (test code = 759) INR (BEAKER) (test 1.00 See_Comment [Automat ed message] code = 370) The system [employer] generated this result transmitted ref erence range: <=5.90. The reference range was not used to int erpret this result as normal/abnormal . RECOMMENDED COUMADIN/WARFARIN INR THERAPY RANGESSTANDARD DOSE: 2.0 - 3.0 Includes: PROPHYLAXIS for venous thrombosis, systemic embolization; TREATMENT for venous thrombosis and/or pulmonary embolus.HIGH RISK: Target INR is 2.5-3.5 for patients with mechanical heart valves.CBC W/PLT COUNT & AUTO [id number] 07:49:00 Test Item Value Reference Range Interpretation [...]
[2023-01-17 17:22] LABS: SARS-CoV-2 Antigen Rapid Res Negative (Negative)
--- NOTE | 2023-01-17 17:39 | EDPHYS ---
Physician Documentation [facility] Name: Mile Wang Age: 27 yrs Sex: Female : 1995 Arrival Date: 01/17/2023 Time: 16:44 Bed 12 Private MD: ED Physician Martín Fletcher HPI: 01/17 17:25 This 27 yrs old Female presents to ER via Ambulatory with complaints of Flu Symptoms. sb4 17:27 patient states that she has been exposed to strep throat and influenza and has been sb4 experiencing body aches, sore throat, cough, congestion for 4 days now. she is 35 weeks but has no obstetrical complaints. unknown fever. Historical: - Allergies: 16:48 Doxycycline; ll1 16:48 Macrobid; ll1 16:48 Vimpat; ll1 - PMHx: 16:48 angina pectoris; Anxiety; Bipolar disorder; Psychogenic Seizures; Seizures; ll1 - PSHx: 16:48 Cholecystectomy; Tonsillectomy; ll1 - Immunization history:: Adult Immunizations up to date. - Social history:: Smoking status: Patient denies any tobacco usage or history of. ROS: 17:27 Constitutional: Positive for body aches, malaise, sb4 17:27 ENT: Positive for sinus congestion, sore throat, 17:27 Respiratory: Positive for cough, 17:27 All other systems are negative, 17:39 Cardiovascular: Negative for chest pain, palpitations, and edema, sb4 Exam: 17:27 Constitutional: This is a well developed, well nourished patient who is awake, alert, sb4 and in no acute distress. Head/Face: Normocephalic, atraumatic. Eyes: Extra-ocular motions intact. Periorbital areas with no swelling, redness, or edema. ENT: Mucous membranes moist. Cardiovascular: Regular rate and rhythm with a normal S1 and S2. Respiratory: Lungs have equal breath sounds bilaterally, clear to auscultation and percussion. No rales, rhonchi or wheezes noted. No increased work of breathing, no retractions or nasal flaring. Abdomen/GI: Soft, non-tender, no distension. Skin: Warm, dry with normal turgor. Normal color with no rashes, no lesions, and no evidence of cellulitis. MS/ Extremity: Pulses equal, no cyanosis. Neurovascular intact. Full, normal range of motion. Vital Signs: 16:51 BP 139 / 81; Pulse 88; Resp 17; Temp 98.2; Pulse Ox 99% on R/A; Weight 94.8 kg; Height ll1 5 ft. 4 in. ; Pain 8/10; 16:51 Body Mass Index 35.87 (94.80 kg, 162.56 cm) ll1 16:51 Pain Scale: Adult ll1 MDM: 16:48 Patient medically screened. sb4 17:27 Differential Diagnosis: Influenza Upper Respiratory Infection Sinusitis Other covid, sb4 strep. 17:38 Data reviewed: vital signs, nurses notes, lab test result(s), and as a result, I will sb4 discharge patient. Counseling: I had a detailed discussion with the patient and/or guardian regarding the historical points, exam findings, and any diagnostic results supporting the discharge/admit diagnosis, lab results, to return to the emergency department if symptoms worsen or persist or if there are any questions or concerns that arise at home. 01/17 17:01 Order name: Flu; Complete Time: 17:38 ll1 01/17 17:01 Order name: Strep [facility] 01/17 17:01 Order name: SARS RAPID; Complete Time: 17:23 ll1 01/17 17:28 Order name: Throat Culture EDOH Administered Medications: No medications were administered Disposition Summary: 01/17/23 17:38 Discharge Ordered Notes: Location: Home sb4 Problem: new sb4 Symptoms: are unchanged sb4 Condition: Stable sb4 Diagnosis - Influenza B sb4 Followup: sb4 - With: Emergency Department - When: As needed - Reason: Trouble breathing, Worsening of condition Discharge Instructions: - Discharge Summary Sheet sb4 - and Influenza sb4 Forms: - Work release form hb - Medication Reconciliation Form sb4 - Thank You Letter sb4 - Antibiotic Education sb4 - Prescription Opioid Use sb4 - Patient Portal Instructions sb4 - Leadership Thank You Letter sb4 Addendum: 01/18/2023 18:08 I was immediately available for consultation during this patient's visit. I did not e c2 personally see the patient or guide the patient's care. . Signatures: Dispatcher [employer] Stella Castaneda RN RN ll1 Natalie Hirsch PA-C PA-C sb4 Edmond Fletcherwin, MD MD ec2
--- NOTE | 2023-01-17 17:39 | ER ---
Nurse's Notes [facility] Name: Mile Wang Age: 27 yrs Sex: Female : 1995 Arrival Date: 01/17/2023 Time: 16:44 Bed 12 Private MD: Diagnosis: Influenza B Presentation: 01/17 16:51 Chief complaint: Patient states: Cough, congestion, sore throat for 4 days. 35 weeks ll1 . Coronavirus screen: Vaccine status: Patient reports receiving the 2nd dose of the covid vaccine. Client denies travel out of the [place] in the last 14 days. congestion, cough unrelated to allergies, fatigue. Ebola Screen: Patient denies travel to an Ebola-affected area in the 21 days before illness onset. Initial Sepsis Screen: Does the patient meet any 2 criteria? No. Patient's initial sepsis screen is negative. Does the patient have a suspected source of infection? Yes: Productive cough/pneumonia. Risk Assessment: Do you want to hurt yourself or someone else? Patient reports no desire to harm self or others. Onset of symptoms was January 14, 2023. 16:51 Method Of Arrival: Ambulatory ll1 16:51 Acuity: BAIRON 4 ll1 Triage Assessment: 16:55 General: Appears in no apparent distress. Behavior is calm, cooperative, appropriate ll1 for age. Pain: Complains of pain in body Pain currently is 10 out of 10 on a pain scale. Quality of pain is described as aching. EENT: Reports nasal congestion pain when swallowing. Neuro: Reports headache. Respiratory: Reports shortness of breath cough that is. Historical: - Allergies: 16:48 Doxycycline; ll1 16:48 Macrobid; ll1 16:48 Vimpat; ll1 - PMHx: 16:48 angina pectoris; Anxiety; Bipolar disorder; Psychogenic Seizures; Seizures; ll1 - PSHx: 16:48 Cholecystectomy; Tonsillectomy; ll1 - Immunization history:: Adult Immunizations up to date. - Social history:: Smoking status: Patient denies any tobacco usage or history of. Screenin:32 [facility] ED Fall Risk Assessment (Adult) Score/Fall Risk Level 0 - 2 = Low Risk ll1 Oriented to surroundings, Maintained a safe environment, Educated pt \T\ family on fall prevention, incl call for assistance when getting out of bed, Hourly rounding (assess needs \T\ fall precautionary measures) done. Abuse screen: Denies threats or abuse. Nutritional screening: No deficits noted. Tuberculosis screening: No symptoms or risk factors identified. Assessment: 17:32 Reassessment: No changes from previously documented assessment. Patient and/or family ll1 updated on plan of care and expected duration. Pain level reassessed. Patient is alert, oriented x 3, equal unlabored respirations, skin warm/dry/pink. Vital Signs: 16:51 BP 139 / 81; Pulse 88; Resp 17; Temp 98.2; Pulse Ox 99% on R/A; Weight 94.8 kg; Height ll1 5 ft. 4 in. ; Pain 8/10; 16:51 Body Mass Index 35.87 (94.80 kg, 162.56 cm) ll1 16:51 Pain Scale: Adult ll1 ED Course: 16:46 Patient arrived in ED. kj1 16:47 Natalie Hirsch PA-C [facility] sb4 16:47 Martín Fletcher MD is Attending Physician. sb4 16:48 Arm band placed on. ll1 16:53 Triage completed. ll1 17:09 Flu Sent. ll1 17:09 Strep Sent. ll1 17:09 SARS RAPID Sent. ll1 17:32 Patient placed in an exam room, on a stretcher. ll1 17:33 Patient has correct armband on for positive identification. Bed in low position. Call ll1 light in reach. Administered Medications: No medications were administered Medication: 17:33 VIS not applicable for this client. ll1 Outcome: 17:38 Discharge ordered by . sb4 17:47 Patient left the ED. hb Signatures: Cindy Hoff, RN RN Fatou Urias kj1 Stella Aldridge RN RN ll1 Natalie Hirsch PA-C PA-C sb4
[2023-01-17 17:58] VITALS: BP 139/81; TEMP 98.2; O2SAT 99
== END 2023-01-17 17:47 | disposition home or self-care (01) ==
LOC: ER 16:44
DX: O99.513 Diseases of the respiratory system complicating pregnancy, third trimester (principal); J10.1 Influenza due to other identified influenza virus with other respiratory manifestations; Z3A.35 35 weeks gestation of pregnancy; Z11.52 Encounter for screening for COVID-19; Z88.1 Allergy status to other antibiotic agents; Z88.8 Allergy status to other drugs, medicaments and biological substances
CPT/HCPCS: 36415; 87070; 87081; 87804; 87811; 99282

== ENCOUNTER 2023-06-30 14:29 | Emergency (ER) | payer OTHER ==
[2023-06-30] MEDS ORDERED: KETOROLAC 30 MG/ML INJ ONE (14:51)
[2023-06-30] MEDS ORDERED: HYDROCODONE/APAP 10/325 TAB ONE (14:51)
[2023-06-30] MEDS ORDERED: dexAMETHasone 10 MG/ML VIAL ONE (14:51)
[2023-06-30 15:14] LABS: Sqamous Epithelial <5 /HPF (None Seen); Urine Bacteria None Seen /HPF (<20); Urine Bilirubin NEGATIVE (Negative); Urine Blood Negative (Negative); Urine Clarity Turbid (Clear); Urine Color Colorless (Yellow); Urine Crystals Unidentified Few /HPF (None Seen); Urine Culture Reflex Order NOT NEEDED; Urine Glucose NEGATIVE (Negative); Urine Ketones NEGATIVE (Negative); Urine Microscopic Reflex YN ORDER UMIC; Urine Nitrite NEGATIVE (Negative); Urine Protein NEGATIVE (Negative); Urine RBC <5 /HPF (None Seen); Urine Urobilinogen Normal (Normal); Urine WBC <5 /HPF (<5)
[2023-06-30] MEDS ORDERED: LIDOCAINE 4% PATCH ONE (15:40)
--- NOTE | 2023-06-30 15:40 | ER ---
Nurse's Notes [facility] Name: Mile Wang Age: 28 yrs Sex: Female : 1995 Arrival Date: 06/30/2023 Time: 14:29 Bed 17 Private MD: Diagnosis: Sciatica, right side Presentation: 06/29 14:36 Chief complaint: Patient states: she started having sudden right back pain that ap3 radiates down her right hip down into her right leg. patient rates her pain as a 10/10 on the pain scale. Coronavirus screen: At this time, the client does not indicate any symptoms associated with coronavirus-19. Ebola Screen: No symptoms or risks identified at this time. Initial Sepsis Screen: Does the patient meet any 2 criteria? No. Patient's initial sepsis screen is negative. Does the patient have a suspected source of infection? No. Patient's initial sepsis screen is negative. Risk Assessment: Do you want to hurt yourself or someone else? Patient reports no desire to harm self or others. Onset of symptoms was June 30, 2023. 14:36 Method Of Arrival: Wheelchair ap3 14:36 Acuity: BAIRON 3 ap3 Triage Assessment: 14:38 General: Appears uncomfortable, Behavior is crying. Pain: Complains of pain in right ap3 mid back, right low back and right leg Pain currently is 10 out of 10 on a pain scale. Pain began suddenly. Neuro: Level of Consciousness is awake, alert, obeys commands, Oriented to person, place, time, situation. Cardiovascular: Patient's skin is warm and dry. Respiratory: Airway is patent Respiratory effort is even, unlabored, Respiratory pattern is regular, symmetrical. 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 - Infectious Disease History:: Denies. - Social history:: Smoking status: Patient denies any tobacco usage or history of. Screenin:38 Abuse screen: Denies threats or abuse. Nutritional screening: No deficits noted. ap3 Tuberculosis screening: No symptoms or risk factors identified. 15:00 [facility] ED Fall Risk Assessment (Adult) History of falling in the last 3 months, mb9 including since admission No falls in past 3 months (0 pts) Confusion or Disorientation No (0 pts) Intoxicated or Sedated No (0 pts) Impaired Gait No (0 pts) Mobility Assist Device Used No (0 pt) Altered Elimination No (0 pt) Score/Fall Risk Level 0 - 2 = Low Risk Oriented to surroundings, Maintained a safe environment, Educated pt \T\ family on fall prevention, incl call for assistance when getting out of bed, Assessed \T\ reinforced patient's understanding of fall precautions. Assessment: 14:59 General: Appears in no apparent distress. Behavior is calm, cooperative. Pain: mb9 Complains of pain in back Pain radiates to right leg Pain currently is 10 out of 10 on a pain scale. Quality of pain is described as throbbing, Pain began suddenly, Is continuous, Aggravated by increased activity, repositioning, weight bearing. Neuro: Long Agitation-Sedation Scale (RASS): 0 - Alert and Calm Level of Consciousness is awake, alert, obeys commands, Oriented to person, place, time, situation, Appropriate for age. Cardiovascular: Patient's skin is warm and dry. Respiratory: Airway is patent Respiratory effort is even, unlabored, Respiratory pattern is regular, symmetrical. GI: No signs and/or symptoms were reported involving the gastrointestinal system. : No signs and/or symptoms were reported regarding the genitourinary system. EENT: No signs and/or symptoms were reported regarding the EENT system. Derm: Skin is pink, warm \T\ dry. Musculoskeletal: Range of motion: intact in all extremities. 15:45 Reassessment: No changes from previously documented assessment. Patient and/or family mb9 updated on plan of care and expected duration. Pain level reassessed. Patient is alert, oriented x 3, equal unlabored respirations, skin warm/dry/pink. Vital Signs: 14:36 Pulse 89; Resp 19; Temp 99.4; Pulse Ox 100% ; Weight 99.79 kg; Pain 10/10; ap3 15:33 BP 118 / 59; Pulse 84; Resp 18; Pulse Ox 98% on R/A; mb9 14:36 Pain Scale: Adult ap3 ED Course: 14:31 Patient arrived in ED. rg4 14:31 Shana Espinosa FNP-C is [facility]. kb 14:31 Mesfin Brenner MD is Attending Physician. kb 14:37 Triage completed. ap3 14:39 Arm band placed on right wrist. ap3 14:42 Martha Carl, RN is Primary Nurse. me1 14:58 Test, Urine Sent. mb9 14:58 Urinalysis w/ reflexes Sent. mb9 15:00 Primary Nurse role handed off by Martha Carl, RN mb9 15:00 Beth Duarte, JUAN M is Primary Nurse. mb9 15:00 Placed in gown. Bed in low position. Call light in reach. Side rails up X 1. Client mb9 placed on continuous cardiac and pulse oximetry monitoring. NIBP monitoring applied. 15:00 Provided Education on: press call light if needing anything. mb9 15:36 No provider procedures requiring assistance completed. Patient did not have IV access mb9 during this emergency room visit. Administered Medications: 14:58 Drug: Dexamethasone IM 10 mg IM once Route: IM; Site: right gluteus; mb9 15:32 Follow up: Response: No adverse reaction mb9 14:58 Drug: Ketorolac IM 15 mg IM once Route: IM; Site: right deltoid; mb9 15:32 Follow up: Response: No adverse reaction mb9 14:58 Drug: [place] PO 10 mg-325 mg 1 tabs PO once Route: PO; mb9 15:32 Follow up: Response: No adverse reaction mb9 15:45 Drug: Lidoderm Topical Patch 5 % (700 mg/patch) 1 patches Topical once; leave on for 12 mb9 hours; cover most painful area; may cut into smaller pieces Route: Topical; Site: affected area; Medication: 15:00 VIS not applicable for this client. mb9 Outcome: 15:38 Discharge ordered by . kb 15:45 Discharged to home ambulatory, with family, mb9 15:45 Condition: stable 15:45 Discharge instructions given to patient, Instructed on discharge instructions, follow up and referral plans. Demonstrated understanding of instructions, follow-up care, medications, Prescriptions given X 3, 15:45 Patient left the ED. mb9 Signatures: Shana Espinosa FNP-C FNP-Ckb Garcia, Rubi rg4 Candy Webber RN RN ap3 Beth Duarte RN RN mb9 Martha Carl RN RN me1
--- NOTE | 2023-06-30 15:40 | EDPHYS ---
Physician Documentation [facility] Name: Mile Wang Age: 28 yrs Sex: Female : 1995 Arrival Date: 06/30/2023 Time: 14:29 Bed 17 Private MD: ED Physician Mesfin Brenner HPI: 06/29 14:38 This 28 yrs old Female presents to ER via Wheelchair with complaints of Leg Pain, Hip kb Pain, Low Back Pain, Flank Pain. 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 kb Denies injury, trauma, numbness, tingling, incontinence, urinary symptoms, fever. States pain started in right low back and radiates down right leg. Reports pain is worse with movement. 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 - Infectious Disease History:: Denies. - Social history:: Smoking status: Patient denies any tobacco usage or history of. ROS: 14:39 Constitutional: As per HPI kb Exam: 14:39 Constitutional: This is a well developed, well nourished patient who is awake, alert, kb and in no acute distress. Head/Face: Normocephalic, atraumatic. ENT: Moist Mucous membranes Cardiovascular: Regular rate Respiratory: Respirations even and unlabored. No increased work of breathing. Talking in full sentences Abdomen/GI: Soft, non-tender. No distention Skin: Warm, dry with normal turgor. Normal color. MS/ Extremity: Pulses equal, no cyanosis. Neurovascular intact. Full, normal range of motion. Neuro: Awake and alert, GCS 15, oriented to person, place, time, and situation. Moves all extremities. Normal gait. 14:39 Back: pain, that is moderate, of the right low back, ROM is painful, Vital Signs: 14:36 Pulse 89; Resp 19; Temp 99.4; Pulse Ox 100% ; Weight 99.79 kg; Pain 10/10; ap3 15:33 BP 118 / 59; Pulse 84; Resp 18; Pulse Ox 98% on R/A; mb9 14:36 Pain Scale: Adult ap3 MDM: 14:32 Patient medically screened. kb 14:39 Differential diagnosis: uti, kidney stone, sciatica. Data reviewed: vital signs, nurses kb notes. 14:40 Test considered but Not performed: X-ray: lumbar and pelvis x-rays considered, but pt kb has no bony tenderness. 15:37 Counseling: I had a detailed discussion with the patient and/or guardian regarding the kb historical points, exam findings, and any diagnostic results supporting the discharge/admit diagnosis, lab results, the need for outpatient follow up, a family practitioner, to return to the emergency department if symptoms worsen or persist or if there are any questions or concerns that arise at home. 06/29 14:35 Order name: Test, Urine; Complete Time: 15:24 kb 06/29 14:35 Order name: Urinalysis w/ reflexes; Complete Time: 15:24 kb Administered Medications: 14:58 Drug: Dexamethasone IM 10 mg IM once Route: IM; Site: right gluteus; mb9 15:32 Follow up: Response: No adverse reaction mb9 14:58 Drug: Ketorolac IM 15 mg IM once Route: IM; Site: right deltoid; mb9 15:32 Follow up: Response: No adverse reaction mb9 14:58 Drug: [place] PO 10 mg-325 mg 1 tabs PO once Route: PO; mb9 15:32 Follow up: Response: No adverse reaction mb9 15:45 Drug: Lidoderm Topical Patch 5 % (700 mg/patch) 1 patches Topical once; leave on for 12 mb9 hours; cover most painful area; may cut into smaller pieces Route: Topical; Site: affected area; Disposition: 16:18 Co-signature as Attending Physician, Mesfin Brenner MD I reviewed the patient's care rn provided by the Advanced Practice Provider and agree with the diagnosis and treatment plan. Disposition Summary: 06/30/23 15:38 Discharge Ordered Notes: Location: Home kb Condition: Stable kb Diagnosis - Sciatica, right side kb Followup: kb - With: Emergency Department - When: As needed - Reason: Worsening of condition Followup: kb - With: Private Physician - When: 2 - 3 days - Reason: Recheck today's complaints, Continuance of care, Re-evaluation by your physician Discharge Instructions: - Discharge Summary Sheet kb - Sciatica, [id number] kb - Back Exercises, [id number] kb Forms: - Medication Reconciliation Form kb - Antibiotic Education kb - Prescription Opioid Use kb - Patient Portal Instructions kb - Leadership Thank You Letter kb Prescriptions: - Prednisone 20 mg Oral Tablet - take 1 tablet ORAL route once daily for 5 days; 5 tablet; Refills: 0, Product kb Selection Permitted - Diclofenac Sodium 75 mg Oral tablet, delayed release (enteric coated) - take 1 tablet ORAL route 2 times per day As needed; 30 tablet; Refills: 0, kb Product Selection Permitted - orphenadrine citrate 100 mg Oral Tablet Sustained Release - take 1 tablet ORAL route 2 times per day As needed; 20 tablet; Refills: 0, kb Product Selection Permitted Signatures: Dispatcher [employer] EDShana Goldsmith, DIRECTOR OF ENTERTAINMENT-C DIRECTOR OF ENTERTAINMENT-Ckb Mesfin Brenner MD MD rn Prokisch, Amanda, RN RN ap3 Beth Duarte RN RN mb9 Corrections: (The following items were deleted from the chart) 14:39 14:38 Pt is a 28 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 Denies injury, trauma, numbness, tingling, incontinence, urinary symptoms, fever. States pain started in right low back and radiates down right leg. . kb
[2023-06-30 16:16] VITALS: BP 118/59; TEMP 99.4; O2SAT 98
== END 2023-06-30 15:45 | disposition home or self-care (01) ==
LOC: ER 14:29
DX: M54.31 Sciatica, right side (principal); Z88.1 Allergy status to other antibiotic agents; Z88.8 Allergy status to other drugs, medicaments and biological substances
CPT/HCPCS: 81001; 81025; 96372; 99284; J2001; J1100